=== PATIENT | male | born 1965 | race Caucasian/White ===

== ENCOUNTER → 2017-03-30 | Outpatient (CLI) | payer OTHER ==
[~2017-03-30] MED LIST: CARV12.52 PO; GLC500 PO; LISI-729 PO; MULTTAB58 PO; PRLSR20 PO; VITAMIN C PO
[2017-03-30 13:36] LABS: ESTIMATED AVERAGE GLUCOSE 131 mg/dl; HA1C FLAG Normal (Normal)
== END | disposition home or self-care (01) ==
LOC: C.LABPBG 08:56
PROVIDERS: ATTEND Family Medicine
DX: E11.9 Type 2 diabetes mellitus without complications (principal)

== ENCOUNTER → 2017-10-05 | Outpatient (CLI) | payer OTHER ==
[2017-10-05 12:41] LABS: ESTIMATED AVERAGE GLUCOSE 120 mg/dl; HA1C FLAG Normal (Normal)
[2017-10-05 12:49] LABS: BLOOD UREA NITROGEN 17 mg/dl (7-18); BUN/CREATININE RATIO 17.3 (10-20); CALCIUM 8.7 mg/dl (8.5-10.1); CARBON DIOXIDE 25 mmol/L (21-32); CHLORIDE 109 mmol/L (98-107); CREATININE 0.99 mg/dl (0.60-1.40); GLUCOSE 83 mg/dl (70-99); POTASSIUM 3.5 mmol/L (3.5-5.1); SODIUM 139 mmol/L (136-145); URIC ACID 3.9 mg/dl (2.6-7.2)
[2017-10-05 12:53] LABS: CHOLESTEROL 149 mg/dl (0-200); CHOLESTEROL/HDL RATIO 3.5; HDL CHOLESTEROL 43 mg/dl; LDL CHOLESTEROL CALCULATED 94 mg/dl; TRIGLYCERIDES 61 mg/dl (0-150); VERY LOW DENSITY LIPOPROT CALC 12 mg/dl
== END | disposition home or self-care (01) ==
LOC: C.LABPBG 09:35
PROVIDERS: ATTEND Family Medicine
DX: Z79.899 Other long term (current) drug therapy (principal); M1A.0790 Idiopathic chronic gout, unspecified ankle and foot, without tophus (tophi); E11.9 Type 2 diabetes mellitus without complications; E78.5 Hyperlipidemia, unspecified; I10 Essential (primary) hypertension

== ENCOUNTER 2021-04-21 20:06 | Observation (INO) ==
--- NOTE | 2021-04-21 20:49 | CT Scan Report ---
CT head/brain wo con CLINICAL HISTORY: 55 years-old Male with Stroke Like Symptoms. Acute strokelike symptoms TECHNIQUE: Multiple axial CT images of the head were obtained without contrast. A dose lowering tech nique was utilized adhering to the principles of ALARA. CT DOSE: 614.27 mGy.cm COMPARISON: None. FINDINGS: No acute intracranial hemorrhage, midline shift, intracranial mass, hydrocephalus, territorial ischem ia or abnormal extra-axial collection. The calvarium is intact. The paranasal sinuses, mastoid air cells, and middle ear cavities are clear . IMPRESSION: No acute intracranial abnormality. ACT 112: Negative or not required by law. The above report was generated using voice recognition software. It may contain grammatical, syntax o r spelling errors. Electronically signed by: Alfredo Thornton M.D. 04/21/2021 8:47 PM
[2021-04-21] MEDS ORDERED: OPTIRAY 320 125ml IV ONE (20:53)
--- NOTE | 2021-04-21 20:59 | CT Scan Report ---
CT angio neck with con, CT angio head w con CLINICAL HISTORY: 55 years-old Male with Stroke Like Symptoms. Acute strokelike symptoms COMPARISON STUDY: Head CT of same day TECHNIQUE: Following the IV administration of 120 mL of Optiray, CT angiogram of the head and neck wa s performed from the aortic arch to the skull apex. Images are reviewed in the axial, sagittal, and c oronal planes. 3-D MIPS images are created and assessed. IV contrast was administered without complic ation. All measurements were calculated based on NASCET criteria. A dose lowering technique was util ized adhering to the principles of ALARA. CT DOSE: 776.32 mGy.cm FINDINGS: Three-vessel morphology of the thoracic aortic arch. Patent innominate and imaged subclavian arteries . The common carotid arteries are widely patent. Internal carotid arteries are patent. The middle and anterior cerebral arteries are patent. Codominant and patent vertebral arteries. The basilar artery is patent. Mostly mild multifocal luminal narrowing of the posterior cerebral arteries. Cerebral veno us sinuses are patent. No aneurysm, dissection, high-grade stenosis or proximal branch occlusion. Nonspecific mild right hilar adenopathy with lymph nodes measuring up to 12 mm. No pneumothorax. Lung apices appear clear. Right paratracheal lymph nodes measure up to 10 mm. Unremarkable thyroid. No cazares praclavicular adenopathy identified. Prominent level 1 lymph nodes on the left measure up to 10 mm. IMPRESSION: 1. Unremarkable CTA of the head and neck. 2. Nonspecific mild mediastinal and right hilar adenopathy. ACT 112: Negative or not required by law. The above report was generated using voice recognition software. It may contain grammatical, syntax o r spelling errors. Electronically signed by: Alfredo Thornton M.D. 04/21/2021 8:58 PM
[2021-04-21 21:16] LABS: Hematocrit (blood only) 33.4 % (42-52); Hemoglobin 11.5 g/dL (14.0-18.0); Mean Corpuscular Hemoglobin 34.4 pg (25-34); Mean Corpuscular Hgb Conc 34.4 g/dL (32-36); Mean Platelet Volume 12.3 fL (7.4-10.4); Platelet Count 74 K/uL (130-400); RDW Coefficient of Variation 15.6 % (11.5-14.5); Red Blood Count 3.34 M/uL (4.7-6.1); White Blood Count 3.73 K/uL (4.8-10.8)
[2021-04-21 21:21] LABS: INR 1.4 (0.9-1.1); Partial Thromboplastin Ratio 1.1; Partial Thromboplastin Time 29.9 Seconds (21.0-31.0); Prothrombin Time 13.8 Seconds (9.0-12.0)
[2021-04-21 21:35] LABS: Alanine Aminotransferase 38 U/L (12-78); Albumin Level 2.5 gm/dl (3.4-5.0); Aspartate Aminotransferase 48 U/L (15-37); BUN Creatinine Ratio 17.8 (10-20); Blood Urea Nitrogen 17 mg/dl (7-18); Calcium 9.2 mg/dl (8.5-10.1); Carbon Dioxide 23 mmol/L (21-32); Chloride 114 mmol/L (98-107); Est GFR (African American) 100.7 ml/min; Est GFR (Non-African American) 86.9 ml/min; Glucose 74 mg/dl (70-99); Magnesium 1.8 mg/dl (1.8-2.4); Potassium 4.2 mmol/L (3.5-5.1); Sodium 142 mmol/L (136-145)
[2021-04-21 21:39] LABS: Albumin Globulin Ratio 0.5 (0.9-2); Alkaline Phosphatase 94 U/L (45-117); Bilirubin,Total 1.2 mg/dl (0.2-1); Globulin 4.8 gm/dl (2.5-4.0); Total Protein 7.3 gm/dl (6.4-8.2); Troponin I < 0.015 ng/ml (0-0.045)
--- NOTE | 2021-04-21 21:46 | Emergency Department Note ---
Impression & Plan Encephalopathy, Acute alteration in mental status, Pancytopenia ED Provider Note NAME: SATISH HUERTA AGE: 55 SEX: M : 1965 ARRIVES VIA: Walk-In INFORMANT: Patient, the patient's [id number] ED PROVIDER(S): Rehan Sanches DO CHIEF COMPLAINT: Altered mental status HPI: The patient is a 55-year-old male who presented to the emergency department for an evaluation of altered mental status. The patient was made a stroke alert as he came through triage. 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 He does ride with his [id number] to work. She did notice that over the course of the last week he has had episodes where he is not himself. He appears to be confused at times. The patient self offers no complaints. He states that he feels fine. He denies having any headache. He denies having any recent tr auma. He denies any alcohol use. The patient was noted to have sleepiness and was difficult to arouse. He was also noted by other workers in the hospital to be confused at one point a nurse observed him in the elevator and he did not know which button to press. The patient was made a stroke alert and placed directly in room B1. He was sent directly from triage to CT and then back to room B1 after CT was obtained. The patient denies having any fever. He denies having any cough. He has had no recent traveling. He denies having any headache or weakness in the arms or legs at this time. ROS: See above HPI for pertinent positives & negatives. A total of 10 systems reviewed and were otherwise negative. PAST MEDICAL HISTORY: See Below PAST SURGICAL HISTORY: See Below FAMILY HISTORY: See Below SOCIAL HISTORY: See Below HOME MEDICATIONS: See Below ALLERGIES: See Below VITALS: See Below PHYSICAL EXAMINATION: GENERAL: The patient is awake and alert. He is slow to answer questions but appears to answer appropriately. EYES: The conjunctivae are clear. The pupils are round and reactive. EARS, NOSE, MOUTH AND THROAT: The nose is without any evidence of any deformity. NECK: The neck is nontender and supple. RESPIRATORY: Normal respiratory effort is noted there is no evidence of wheezing rhonchi or rales CARDIOVASCULAR: Regular rate and rhythm noted there no murmurs rubs or gallops normal S1 normal S2. GASTROINTESTINAL: The abdomen is soft. Abdomen is nontender. MUSCULOSKELETAL/EXTREMITIES: There is no evidence of gross deformity full range of motion is noted in the hips and shoulders. SKIN: There is no obvious evidence of any rash. There are no petechiae, pallor or cyanosis noted. NEUROLOGIC: Patient is awake and oriented to person place and situation. Strength was symmetric. There is no facial droop. MEDICAL DECISION MAKING: The patient is a 55-year-old male who presented to the emergency department through triage. 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 The patient was made a stroke alert from triage. On my evaluation the patient does not have any focal neurologic deficit. He was evaluated by the [facility] neurologist. He was found to have pancytopenia. CT of the head and angiography of the head neck did not reveal any acute disease. I discussed the patient's laboratory and radiographic studies with him. He was reevaluated multiple times. Ultimately he was found to have pancytopenia. The patient may require further inpatient work-up and observation to ensure his mental status does come back to normal. I discussed this option with the patient and he was agreeable to inpatient management. I discussed his case with the on-call [facility] hospitalist. They have agreed to evaluate the patient in the emergency department for further management and disposition. Triage Nursing notes reviewed. Prior medical records reviewed Vital Signs: reviewed and remarkable for elevated blood pressure. Differential diagnosis: Infection, dehydration, metabolic abnormality, hypo/hyperglycemia, electrolyte disturbance, anemia, hypoxia, cardiac sources, intracerebral event, toxicologic, neurologic, as well as other pathologies. ER treatment provided: See below Diagnostics interpreted by me: ECG: EKG was obtained in the emergency department. My interpretation is normal sinus rhythm at 81 bpm. There is no ectopy. There is no acute ST segment abnormalities. This was compared to a tracing from March 232011. No s ignificant changes are noted Cardiac Monitoring: An order was placed for continuous cardiac monitoring. The monitor shows a rate of 80 bpm with sinus rhythm. Laboratory studies: As stated above and show below. Imaging studies: See below Consultation(s): 2100: I discussed this case with Dr. Moya who is on-call for the [facility] neurology group. They have agreed to evaluate the patient using the telestroke cart. 2240: I discussed this case with Dr. Hernandez who is on-call for the [facility] hospitalist group. Past Med/Surg History Medical History (Updated 04/21/21 @ 22:58 by Rehan Sanches DO) Cardiac murmur HX Diabetes mellitus, type 2 Gout Hyperlipidemia Hypertension Surgical History History of colonoscopy Family History Mother History of colonoscopy Brother Family history of diabetes mellitus Brother Family history of diabetes mellitus Grandmother (Paternal) Family history of diabetes mellitus Social History Smoking Status: Never smoker Second Hand Exposure: No; Hx Alcohol Use: No Hx Substance Use: No Preferred Language: Tamazight Communication Ability: Effective Automatic Beam Warper Tender Required: No Beliefs That Will Affect Care: None Current Living Situation: Family Feels Safe at Home: Yes Assistive Devices: Glasses Allergies Allergies Allergy/AdvReac Type Severity Reaction Status Date / Time aspirin Allergy NOSE BLEEDS Verified 04/21/21 20:38 Home Meds Home Medications Medication Instructions Recorded Confirmed allopurinol 300 mg PO QAM 06/03/19 04/21/21 ascorbic acid (vitamin C) [Vitamin 500 mg PO QAM 06/03/19 04/21/21 C] carvedilol 12.5 mg PO BID 06/03/19 04/21/21 glimepiride 4 mg PO QAM 06/03/19 04/21/21 lisinopril 5 mg PO QAM 06/03/19 04/21/21 metformin 500 mg PO AMPM 06/03/19 04/21/21 multivitamin 1 tab PO QAM 06/03/19 04/21/21 omeprazole 20 mg PO QAM 06/03/19 04/21/21 pioglitazone [Actos] 30 mg PO QAM 06/03/19 04/21/21 atorvastatin 20 mg PO DAILY 04/21/21 04/21/21 Results & Data (ED) Vital Signs Vital Signs - 24 hr 04/21/21 20:52 04/21/21 21:02 04/21/21 21:11 Pulse Rate 78 84 82 Pulse Rate [Right] Pulse Rate from SpO2 Sensor 84 83 Pulse Rhythm [Right] Pulse Strength [Right] Respiratory Rate 20 12 19 Respiratory Effort / Characteristics Respiratory Depth Blood Pressure 181/94 H 174/96 H Blood Pressure [Right Arm] Blood Pressure Mean 123 122 Blood Pressure Mean [Right Arm] Blood Pressure Position Sitting Blood Pressure Position [Right Arm] Pulse Oximetry 98 99 99 Oxygen Delivery Method Room Air Sepsis Recent Fever Within 48 Hours No Sepsis New/Unexplained Change in Mental Status Yes Sepsis Action Taken by Nursing No Action Required 04/21/21 21:16 04/21/21 21:31 04/21/21 22:12 Pulse Rate 83 82 Pulse Rate [Right] 79 Pulse Rate from SpO2 Sensor 84 82 Pulse Rhythm [Right] Regular Pulse Strength [Right] Normal Respiratory Rate 17 16 16 Respiratory Effort / Characteristics Non-Labored Spontaneous Respiratory Depth Normal Blood Pressure 173/94 H 168/96 H Blood Pressure [Right Arm] 155/67 H Blood Pressure Mean 120 120 Blood Pressure Mean [Right Arm] 96 Blood Pressure Position Blood Pressure Position [Right Arm] Sitting Pulse Oximetry 98 99 98 Oxygen Delivery Method Room Air Sepsis Recent Fever Within 48 Hours Sepsis New/Unexplained Change in Mental Status Sepsis Action Taken by [facility] Medications Current Medication List: was personally reviewed by me Laboratory Data Attestation: I reviewed the patient's lab results. Result diagrams: 04/21/21 21:01 04/21/21 21:01 Lab Results 04/21/21 04/21/21 04/21/21 Range/Units 20:57 21:01 21:01 WBC 3.73 L (4.8-10.8) K/uL RBC 3.34 L (4.7-6.1) M/uL Hgb 11.5 L (14.0-18.0) g/dL Hct 33.4 L (42-52) % MCV 100.0 (80-100) fL MCH 34.4 H (25-34) pg MCHC 34.4 (32-36) g/dL RDW Std Deviation 57.0 H (36.4-46.3) fL RDW Coeff of Polo 15.6 H (11.5-14.5) % Plt Count 74 L (130-400) K/uL MPV 12.3 H (7.4-10.4) fL Immature Gran % (Auto) 0.3 % Neut % (Auto) 59.9 % Lymph % (Auto) 17.2 % Clinch % (Auto) 16.9 % Eos % (Auto) 4.6 % Baso % (Auto) 1.1 % Neut # (Auto) 2.24 (1.4-6.5) K/uL Lymph # (Auto) 0.64 L (1.2-3.4) K/uL Clinch # (Auto) 0.63 H (0.11-0.59) K/uL Eos # (Auto) 0.17 (0-0.5) K/uL Baso # (Auto) 0.04 (0-0.2) K/uL Immature Gran # (Auto) 0.01 (0.00-0.02) K/uL Polychromasia 1+ Poikilocytosis Present Echinocytes 1+ PT 13.8 H (9.0-12.0) Seconds INR 1.4 H (0.9-1.1) APTT 29.9 (21.0-31.0) Seconds PTT Ratio 1.1 Sodium (136-145) mmol/L Potassium (3.5-5.1) mmol/L Chloride (98-107) mmol/L Carbon Dioxide (21-32) mmol/L Anion Gap (3-11) BUN (7-18) mg/dl Creatinine (0.6-1.4) mg/dl Est Cr Clr Drug Dosing ml/min Est GFR ( Amer) ml/min Est GFR (Non-Af Amer) ml/min BUN/Creatinine Ratio (10-20) Glucose (70-99) mg/dl POC Glucose 77 (70-99) mg/dl Calcium (8.5-10.1) mg/dl Magnesium (1.8-2.4) mg/dl Total Bilirubin (0.2-1) mg/dl AST (15-37) U/L ALT (12-78) U/L Alkaline Phosphatase (45-117) U/L Ammonia (11-32) umol/L Troponin I (0-0.045) ng/ml Total Protein (6.4-8.2) gm/dl Albumin (3.4-5.0) gm/dl Globulin (2.5-4.0) gm/dl Albumin/Globulin Ratio (0.9-2) Urine Opiates Screen (Neg) Ur Methadone, Qual (Neg) Urine Barbiturates (Neg) Ur Phencyclidine (PCP) (Neg) U Amphetamin/Meth Scrn (Neg) MDMA (Ecstasy) Screen (Neg) U Benzodiazepines Scrn (Neg) Ur Cocaine Metabolite (Neg) U Marijuana (THC) Screen (Neg) Ethyl Alcohol mg/dL (0-3) mg/dl Anaplasma Smear Lyme Disease IgG Ab (Negative) Lyme Disease IgM Ab (Negative) COVID-19 Eval Order SARS-CoV-2 (PCR) (Negative) 04/21/21 04/21/21 04/21/21 Range/Units 21:01 21:01 21:02 WBC (4.8-10.8) K/uL RBC (4.7-6.1) M/uL Hgb (14.0-18.0) g/dL Hct (42-52) % MCV (80-100) fL MCH (25-34) pg MCHC (32-36) g/dL RDW Std Deviation (36.4-46.3) fL RDW Coeff of Polo (11.5-14.5) % Plt Count (130-400) K/uL MPV (7.4-10.4) fL Immature Gran % (Auto) % Neut % (Auto) % Lymph % (Auto) % Clinch % (Auto) % Eos % (Auto) % Baso % (Auto) % Neut # (Auto) (1.4-6.5) K/uL Lymph # (Auto) (1.2-3.4) K/uL Clinch # (Auto) (0.11-0.59) K/uL Eos # (Auto) (0-0.5) K/uL Baso # (Auto) (0-0.2) K/uL Immature Gran # (Auto) (0.00-0.02) K/uL Polychromasia Poikilocytosis Echinocytes PT (9.0-12.0) Seconds INR (0.9-1.1) APTT (21.0-31.0) Seconds PTT Ratio Sodium 142 (136-145) mmol/L Potassium 4.2 (3.5-5.1) mmol/L Chloride 114 H (98-107) mmol/L Carbon Dioxide 23 (21-32) mmol/L Anion Gap 5.0 (3-11) BUN 17 (7-18) mg/dl Creatinine 0.97 (0.6-1.4) mg/dl Est Cr Clr Drug Dosing 12.0 ml/min Est GFR ( Amer) 100.7 ml/min Est GFR (Non-Af Amer) 86.9 ml/min BUN/Creatinine Ratio 17.8 (10-20) Glucose 74 (70-99) mg/dl POC Glucose (70-99) mg/dl Calcium 9.2 (8.5-10.1) mg/dl Magnesium 1.8 (1.8-2.4) mg/dl Total Bilirubin 1.2 H (0.2-1) mg/dl AST 48 H (15-37) U/L ALT 38 (12-78) U/L Alkaline Phosphatase 94 (45-117) U/L Ammonia (11-32) umol/L Troponin I < 0.015 (0-0.045) ng/ml Total Protein 7.3 (6.4-8.2) gm/dl Albumin 2.5 L (3.4-5.0) gm/dl Globulin 4.8 H (2.5-4.0) gm/dl Albumin/Globulin Ratio 0.5 L (0.9-2) Urine Opiates Screen (Neg) Ur Methadone, Qual (Neg) Urine Barbiturates (Neg) Ur Phencyclidine (PCP) (Neg) U Amphetamin/Meth Scrn (Neg) MDMA (Ecstasy) Screen (Neg) U Benzodiazepines Scrn (Neg) Ur Cocaine Metabolite (Neg) U Marijuana (THC) Screen (Neg) Ethyl Alcohol mg/dL (0-3) mg/dl Anaplasma Smear See Comment Lyme Disease IgG Ab Negative (Negative) Lyme Disease IgM Ab Negative (Negative) COVID-19 Eval Order SARS-CoV-2 (PCR) (Negative) 04/21/21 04/21/21 04/21/21 Range/Units 21:44 21:46 22:00 WBC (4.8-10.8) K/uL RBC (4.7-6.1) M/uL Hgb (14.0-18.0) g/dL Hct (42-52) % MCV (80-100) fL MCH (25-34) pg MCHC (32-36) g/dL RDW Std Deviation (36.4-46.3) fL RDW Coeff of Polo (11.5-14.5) % Plt Count (130-400) K/uL MPV (7.4-10.4) fL Immature Gran % (Auto) % Neut % (Auto) % Lymph % (Auto) % Clinch % (Auto) % Eos % (Auto) % Baso % (Auto) % Neut # (Auto) (1.4-6.5) K/uL Lymph # (Auto) (1.2-3.4) K/uL Clinch # (Auto) (0.11-0.59) K/uL Eos # (Auto) (0-0.5) K/uL Baso # (Auto) (0-0.2) K/uL Immature Gran # (Auto) (0.00-0.02) K/uL Polychromasia Poikilocytosis Echinocytes PT (9.0-12.0) Seconds INR (0.9-1.1) APTT (21.0-31.0) Seconds PTT Ratio Sodium (136-145) mmol/L Potassium (3.5-5.1) mmol/L Chloride (98-107) mmol/L Carbon Dioxide (21-32) mmol/L Anion Gap (3-11) BUN (7-18) mg/dl Creatinine (0.6-1.4) mg/dl Est Cr Clr Drug Dosing ml/min Est GFR ( Amer) ml/min Est GFR (Non-Af Amer) ml/min BUN/Creatinine Ratio (10-20) Glucose (70-99) mg/dl POC Glucose (70-99) mg/dl Calcium (8.5-10.1) mg/dl Magnesium (1.8-2.4) mg/dl Total Bilirubin (0.2-1) mg/dl AST (15-37) U/L ALT (12-78) U/L Alkaline Phosphatase (45-117) U/L Ammonia (11-32) umol/L Troponin I (0-0.045) ng/ml Total Protein (6.4-8.2) gm/dl Albumin (3.4-5.0) gm/dl Globulin (2.5-4.0) gm/dl Albumin/Globulin Ratio (0.9-2) Urine Opiates Screen (Neg) Ur Methadone, Qual (Neg) Urine Barbiturates (Neg) Ur Phencyclidine (PCP) (Neg) U Amphetamin/Meth Scrn (Neg) MDMA (Ecstasy) Screen (Neg) U Benzodiazepines Scrn (Neg) Ur Cocaine Metabolite (Neg) U Marijuana (THC) Screen (Neg) Ethyl Alcohol mg/dL < 3.0 (0-3) mg/dl Anaplasma Smear Lyme Disease IgG Ab (Negative) Lyme Disease IgM Ab (Negative) COVID-19 Eval Order Covid19 at [facility] SARS-CoV-2 (PCR) (Negative) 04/21/21 04/21/21 04/21/21 Range/Units 22:00 22:10 22:33 WBC (4.8-10.8) K/uL RBC (4.7-6.1) M/uL Hgb (14.0-18.0) g/dL Hct (42-52) % MCV (80-100) fL MCH (25-34) pg MCHC (32-36) g/dL RDW Std Deviation (36.4-46.3) fL RDW Coeff of Polo (11.5-14.5) % Plt Count (130-400) K/uL MPV (7.4-10.4) fL Immature Gran % (Auto) % Neut % (Auto) % Lymph % (Auto) % Clinch % (Auto) % Eos % (Auto) % Baso % (Auto) % Neut # (Auto) (1.4-6.5) K/uL Lymph # (Auto) (1.2-3.4) K/uL Clinch # (Auto) (0.11-0.59) K/uL Eos # (Auto) (0-0.5) K/uL Baso # (Auto) (0-0.2) K/uL Immature Gran # (Auto) (0.00-0.02) K/uL Polychromasia Poikilocytosis Echinocytes PT (9.0-12.0) Seconds INR (0.9-1.1) APTT (21.0-31.0) Seconds PTT Ratio Sodium (136-145) mmol/L Potassium (3.5-5.1) mmol/L Chloride (98-107) mmol/L Carbon Dioxide (21-32) mmol/L Anion Gap (3-11) BUN (7-18) mg/dl Creatinine (0.6-1.4) mg/dl Est Cr Clr Drug Dosing ml/min Est GFR ( Amer) ml/min Est GFR (Non-Af Amer) ml/min BUN/Creatinine Ratio (10-20) Glucose (70-99) mg/dl POC Glucose (70-99) mg/dl Calcium (8.5-10.1) mg/dl Magnesium (1.8-2.4) mg/dl Total Bilirubin (0.2-1) mg/dl AST (15-37) U/L ALT (12-78) U/L Alkaline Phosphatase (45-117) U/L Ammonia 144.2 H (11-32) umol/L Troponin I (0-0.045) ng/ml Total Protein (6.4-8.2) gm/dl Albumin (3.4-5.0) gm/dl Globulin (2.5-4.0) gm/dl Albumin/Globulin Ratio (0.9-2) Urine Opiates Screen Neg (Neg) Ur Methadone, Qual Neg (Neg) Urine Barbiturates Neg (Neg) Ur Phencyclidine (PCP) Neg (Neg) U Amphetamin/Meth Scrn Neg (Neg) MDMA (Ecstasy) Screen Neg (Neg) U Benzodiazepines Scrn Neg (Neg) Ur Cocaine Metabolite Neg (Neg) U Marijuana (THC) Screen Neg (Neg) Ethyl Alcohol mg/dL (0-3) mg/dl Anaplasma Smear Lyme Disease IgG Ab (Negative) Lyme Disease IgM Ab (Negative) COVID-19 Eval Order SARS-CoV-2 (PCR) NEGATIVE (Negative) Administered Medications Discontinued Medications Ioversol (Optiray 320 125ml) 120 ml IV ONCE ONE Stop: 04/21/21 20:54 Last Admin: 04/21/21 20:54 Dose: 120 ml Documented by: [id number] Imaging Data Attestation: I personally reviewed and interpreted this imaging study as follows: My Impression: 1 view chest x-ray was obtained in the emergency department. There was cardiomegaly noted. No definite filtrate was noted. No acute disease. Radiologist's Impression: Head CT 04/21/21 20:33 CT head/brain wo con CLINICAL HISTORY: 55 years-old Male with Stroke Like Symptoms. Acute strokelike symptoms TECHNIQUE: Multiple axial CT images of the head were obtained without contrast. A dose lowering technique was utilized adhering to the principles of ALARA. CT DOSE: 614.27 mGy.cm COMPARISON: None. FINDINGS: No acute intracranial hemorrhage, midline shift, intracranial mass, hydrocephalus, territorial ischemia or abnormal extra-axial collection. The calvarium is intact. The paranasal sinuses, mastoid air cells, and middle ear cavities are clear. IMPRESSION: No acute intracranial abnormality. ACT 112: Negative or not required by law. The above report was generated using voice recognition software. It may contain grammatical, syntax or spelling errors. Electronically signed by: Alfredo Thornton M.D. 04/21/2021 8:47 PM Head CTA 04/21/21 20:33 CT angio neck with con, CT angio head w con CLINICAL HISTORY: 55 years-old Male with Stroke Like Symptoms. Acute strokelike symptoms COMPARISON STUDY: Head CT of same day TECHNIQUE: Following the IV administration of 120 mL of Optiray, CT angiogram of the head and neck was performed from the aortic arch to the skull apex. Images are reviewed in the axial, sagittal, and coronal planes. 3-D MIPS images are created and assessed. IV contrast was administered without complication. All measurements were calculated based on NASCET criteria. A dose lowering technique was utilized adhering to the principles of ALARA. CT DOSE: 776.32 mGy.cm FINDINGS: Three-vessel morphology of the thoracic aortic arch. Patent innominate and imaged subclavian arteries. The common carotid arteries are widely patent. Internal carotid arteries are patent. The middle and anterior cerebral arteries are patent. Codominant and patent vertebral arteries. The basilar artery is patent. Mostly mild multifocal luminal narrowing of the posterior cerebral arteries. Cerebral venous sinuses are patent. No aneurysm, dissection, high- grade stenosis or proximal branch occlusion. Nonspecific mild right hilar adenopathy with lymph nodes measuring up to 12 mm. No pneumothorax. Lung apices appear clear. Right paratracheal lymph nodes measure up to 10 mm. Unremarkable thyroid. No supraclavicular adenopathy identified. Prominent level 1 lymph nodes on the left measure up to 10 mm. IMPRESSION: 1. Unremarkable CTA of the head and neck. 2. Nonspecific mild mediastinal and right hilar adenopathy. ACT 112: Negative or not required by law. The above report was generated using voice recognition software. It may contain grammatical, syntax or spelling errors. Electronically signed by: Alfredo Thornton M.D. 04/21/2021 8:58 PM Neck CTA 04/21/21 20:33 CT angio neck with con, CT angio head w con CLINICAL HISTORY: 55 years-old Male with Stroke Like Symptoms. Acute strokelike symptoms COMPARISON STUDY: Head CT of same day TECHNIQUE: Following the IV administration of 120 mL of Optiray, CT angiogram of the head and neck was performed from the aortic arch to the skull apex. Images are reviewed in the axial, sagittal, and coronal planes. 3-D MIPS images are created and assessed. IV contrast was administered without complication. All measurements were calculated based on NASCET criteria. A dose lowering technique was utilized adhering to the principles of ALARA. CT DOSE: 776.32 mGy.cm FINDINGS: Three-vessel morphology of the thoracic aortic arch. Patent innominate and imaged subclavian arteries. The common carotid arteries are widely patent. Internal carotid arteries are patent. The middle and anterior cerebral arteries are patent. Codominant and patent vertebral arteries. The basilar artery is patent. Mostly mild multifocal luminal narrowing of the posterior cerebral arteries. Cerebral venous sinuses are patent. No aneurysm, dissection, high-g rade stenosis or proximal branch occlusion. Nonspecific mild right hilar adenopathy with lymph nodes measuring up to 12 mm. No pneumothorax. Lung apices appear clear. Right paratracheal lymph nodes measure up to 10 mm. Unremarkable thyroid. No supraclavicular adenopathy ignacia ntified. Prominent level 1 lymph nodes on the left measure up to 10 mm. IMPRESSION: 1. Unremarkable CTA of the head and neck. 2. Nonspecific mild mediastinal and right hilar adenopathy. ACT 112: Negative or not required by law. The above report was generated using voice recognition software. It may contain grammatical, syntax or spelling errors. Electronically signed by: Alfredo Thornton M.D. 04/21/2021 8:58 PM Discharge Plan Visit Data Chief Complaint: Confusion Stated Complaint: DIZZY, CONFUSION ED Provider: Rehan Sanches Discharge Problem: Encephalopathy, Acute alteration in mental status, Pancytopenia Patient Disposition: Being Evaluated by Hospitalist Condition: Good Forms Stand Alone Forms: My [facility] Prescriptions Prescriptions: No Action metformin 500 mg Tablet 500 mg PO AMPM RF: 0 carvedilol 12.5 mg Tablet 12.5 mg PO BID RF: 0 glimepiride 4 mg Tablet 4 mg PO QAM RF: 0 omeprazole 20 mg Capsule,Delayed Release(Dr/Ec) 20 mg PO QAM RF: 0 allopurinol 300 mg Tablet 300 mg PO QAM RF: 0 lisinopril 5 mg Tablet 5 mg PO QAM RF: 0 pioglitazone [Actos] 30 mg Tablet 30 mg PO QAM RF: 0 multivitamin Tablet 1 tab PO QAM RF: 0 ascorbic acid (vitamin C) [Vitamin C] 500 mg Tablet 500 mg PO QAM RF: 0 atorvastatin 20 mg tablet 20 mg PO DAILY RF: 0 Referrals Referrals: Stanford Mays MD [Primary Care Provider] -
[2021-04-21 22:02] LABS: Basophils # (auto) 0.04 K/uL (0-0.2); Basophils % (auto) 1.1 %; Echinocytes 1+; Eosinophils # (auto) 0.17 K/uL (0-0.5); Eosinophils % (auto) 4.6 %; Immature Granulocytes # (auto) 0.01 K/uL (0.00-0.02); Immature Granulocytes % (auto) 0.3 %; Lymphocytes # (auto) 0.64 K/uL (1.2-3.4); Lymphocytes % (auto) 17.2 %; Monocytes # (auto) 0.63 K/uL (0.11-0.59); Monocytes % (auto) 16.9 %; Neutrophils # (auto) 2.24 K/uL (1.4-6.5); Neutrophils % (auto) 59.9 %; Poikilocytosis Present; Polychromasia 1+
[2021-04-21 22:18] LABS: Lyme Ab IgG w/WB Rflx Negative (Negative); Lyme Ab IgM w/WB Rflx Negative (Negative)
[2021-04-21 22:47] LABS: Amphetamines+Metham, Urine Neg (Neg); Barbiturates, Urine Neg (Neg); Benzodiazepine, Urine Neg (Neg); Cocaine, Urine Neg (Neg); MDMA (Ecstacy), Urine Neg (Neg); Methadone, Urine Neg (Neg); Opiate, Urine Neg (Neg); Phencyclidine, Urine Neg (Neg)
[2021-04-22] MEDS ORDERED: BACITRACIN OINT 15 GM TUBE ONE (00:44)
--- NOTE | 2021-04-22 00:53 | History and Physical Report ---
DATE OF ADMISSION: 04/21/2021. CHIEF COMPLAINT: Confusion. HISTORY OF PRESENT ILLNESS: This is a 55-year-old male with past medical history significant for type 2 diabetes, hyperlipidemia, chronic idiopathic gout, primary hypertension, obesity, diverticulosis of colon, family history of colon cancer, presents with confusion. The patient works in the [employer]. His [id number] also works here with whom he shares the ride; and as per the ER, [id number] noticed that since one week he had episodes where he was not himself, he was confused at times, and at work also it was noticed that he was confused at one point of time. When he came in, he was a stroke alert. He had a CT of the head and CTA of the head and neck and were okay and Светлана neurologist also examined the patient and thought it could be some ongoing encephalopathy. The patient seems to be okay currently, alert and oriented, somewhat a little shaky. But his labs showed him to have pancytopenia, WBC of 3.7, hemoglobin 11.5, and platelets of 74. Lyme screen was negative. The patient denies any alcohol use. He takes Aleve once in a while, but does not take any Tylenol. His labs on 05/10/2020 also showed white count of 4.1, hemoglobin 12.2 at that time, and platelets 91. His ammonia level came back as 144, total bilirubin 1.2, AST 48, ALT 38, alkaline phosphatase 94. INR 1.4. PT 13.8. Currently resting comfortably and hemodynamically stable. Denies any chest pain, no shortness of breath, no cough, no fever, no chills, no headache, no blurred visions, no earache, no runny nose, no sore throat. Appetite okay, no dysphagia. He had an episode of blood in the stools about a week ago, just one episode. He took one dose of water pill for lower extremity swelling last 1 month ago. Ambulates okay. He says he had belly pain several years ago. Currently denies any abdominal pain. ALLERGIES: SALICYLATES. PAST MEDICAL HISTORY: As mentioned above. PAST SURGICAL HISTORY: Colonoscopy. MEDICATIONS: The patient is on allopurinol 300 mg p.o. a.m., vitamin C 500 mg p.o. a.m., atorvastatin 20 mg p.o. daily, Coreg 12.5 mg p.o. b.i.d., glimepiride 4 mg p.o. a.m., lisinopril 5 mg p.o. a.m., metformin 500 mg p.o. b.i.d., multivitamin 1 tablet p.o. a.m., omeprazole 20 mg p.o. a.m., Actos 30 mg p.o. a.m. FAMILY HISTORY: Significant for mother had colon cancer; brother has diabetes, hypertension and sleep apnea; mother has hypertension. SOCIAL HISTORY: Single. Chews tobacco. No alcohol, no drug use. REVIEW OF SYSTEMS: As per HPI. Rest of the review of systems negative. PHYSICAL EXAMINATION: GENERAL: The patient is obese, not in acute distress. VITAL SIGNS: Temperature afebrile, pulse 74, respiratory rate 16, blood pressure 152/88, oxygen 97% on room air. HEENT: Pupils equal, round, and reactive to light. No pallor, no icterus. Oral mucosa moist. NECK: No JVD, no neck masses. CARDIOVASCULAR: S1 and S2 heard. Regular rate and rhythm. No murmur, no gallop. RESPIRATORY SYSTEM: Normal AP diameter. No accessory muscle use. No wheezing, no crackles. ABDOMEN: Soft, bowel sounds present, nontender, no distention. CENTRAL NERVOUS SYSTEM: Alert and oriented to name, place, could tell month and year, could not tell exact date, could tell his date of . Speech is clear. No facial droop. Power is 5/5 in all extremities. Coordination of movements normal. No pronator drift. EXTREMITIES: Mild pedal edema present, no erythema seen. LABORATORY DATA: WBC 3.7, hemoglobin 11.5, hematocrit 33.4, platelets 74. PT 13.8, INR 1.4, APTT 29.9. Sodium 142, potassium 4.2, chloride 114, bicarbonate 23, BUN 17, creatinine 0.9, serum glucose 74, calcium 9.2, magnesium 1.8, total bilirubin 1.2, AST 48, ALT 38, alkaline phosphatase 94. Ammonia 144, troponin less than 0.015. Urine drug screen negative. Ethyl alcohol less than 3. Anaplasmosis smear negative. Lyme screen A and B negative. COVID-19 PCR negative. IMAGING DATA: CT of the head, no acute intracranial abnormality. CTA of the head unremarkable. CTA of the head and neck, nonspecific mild mediastinal and right hilar adenopathy. Chest x-ray, no acute findings. EKG: Normal sinus rhythm at a rate of 81, QTc at 487. ASSESSMENT AND PLAN: This 55-year-old male presents with confusion. 1. Confusion: Possibly hepatic encephalopathy with elevated ammonia level. The patient also has pancytopenia. CT of the head and CTA of the head and neck are unremarkable. . Has some tremors in the hands.Will admit to tele floor, will place on lactulose 30 g q.i.d. Recheck ammonia level in the a.m. We will also get a CT of the abdomen and pelvis. Hepatic panel. Consult GI in the a.m. for further recommendations. 2. History of diabetes: Hold his home Actos, glimepiride, and metformin. Placed on insulin sliding scale and Lantus. Follow his blood sugars and HbA1c levels. 3. Hyperlipidemia: Continue statin. 4. Hypertension: Continue his Coreg and lisinopril. Monitor blood pressure. 5. History of gout: Continue allopurinol. 6. Gastroesophageal reflux disease: Continue omeprazole. 7. Pancytopenia: Etiology unclear. Will follow the CT of abdomen and pelvis for any liver disease. 8. Deep venous thrombosis prophylaxis: Sequential compression devices. DISPOSITION: Admit to tele floor. PT/OT prior to discharge. Social service to help with discharge planning. Level 1 full code. Job ID: [id number] [facility]
[2021-04-22] MEDS ORDERED: OPTIRAY 320 100ml IV ONE (00:58)
[2021-04-22] MEDS ORDERED: SODIUM CHLORIDE 0.9% 1000ML 1,000 ML IV SCH (00:59)
[2021-04-22] MEDS ORDERED: NITROGLYCERIN SL 0.4 MG/TAB TAB SL PRN (00:59)
[2021-04-22] MEDS: LACTULOSE SYRUP 30 GM/45 ML UDP PO SCH ×5 (01:05→20:45)
[2021-04-22 06:08] LABS: Potassium 3.8 mmol/L (3.5-5.1)
[2021-04-22 06:13] LABS: Albumin Level 2.5 gm/dl (3.4-5.0); BUN Creatinine Ratio 17.8 (10-20); Bilirubin Direct 0.4 mg/dl (0-0.2); Calcium 8.6 mg/dl (8.5-10.1); Creatinine Clr Calc Pharmacy 132.7 ml/min; Est GFR (African American) 111.3 ml/min; Magnesium 1.8 mg/dl (1.8-2.4)
[2021-04-22 06:16] LABS: Bilirubin,Total 1.4 mg/dl (0.2-1); Total Protein 6.7 gm/dl (6.4-8.2)
[2021-04-22 06:30] LABS: Estimated Average Glucose 131 mg/dl; Hemoglobin A1C 6.2 % (4.5-5.6)
[2021-04-22 06:33] LABS: Hematocrit (blood only) 32.7 % (42-52); Hemoglobin 11.1 g/dL (14.0-18.0); Mean Corpuscular Hemoglobin 33.8 pg (25-34); Mean Corpuscular Hgb Conc 33.9 g/dL (32-36); Mean Corpuscular Volume 99.7 fL (80-100); Mean Platelet Volume 12.3 fL (7.4-10.4); Platelet Count 71 K/uL (130-400); RDW Coefficient of Variation 15.7 % (11.5-14.5); RDW Standard Deviation 57.5 fL (36.4-46.3); Red Blood Count 3.28 M/uL (4.7-6.1)
[2021-04-22 06:51] LABS: Basophils # (auto) 0.05 K/uL (0-0.2); Basophils % (auto) 1.3 %; Eosinophils # (auto) 0.18 K/uL (0-0.5); Eosinophils % (auto) 4.6 %; Lymphocytes # (auto) 0.72 K/uL (1.2-3.4); Lymphocytes % (auto) 18.5 %; Monocytes % (auto) 17.9 %; Neutrophils # (auto) 2.25 K/uL (1.4-6.5); Neutrophils % (auto) 57.7 %
--- NOTE | 2021-04-22 07:06 | XRay Report ---
SINGLE VIEW CHEST CLINICAL HISTORY: Strokelike symptoms. FINDINGS: An AP, portable, upright chest radiograph is compared to study dated 12/21/2013. The examina tion is degraded by portable technique and apical lordotic positioning. The heart is top normal for p rojection. There is mild bibasilar atelectasis. No airspace consolidation or large pleural effusion i s identified. No pneumothorax is seen. The bony thorax is grossly intact. IMPRESSION: No active disease in the chest. ACT 112: Negative or not required by law. Electronically signed by: Ruy Ribeiro M.D. 04/22/2021 7:04 AM
[2021-04-22] MEDS ORDERED: CARBOHYDRATES FOR HYPOGLYCEMIA PO ONE (07:08)
[2021-04-22] MEDS ORDERED: GLUCAGON FOR INJ 1 MG VIAL IM PRN (07:15)
[2021-04-22] MEDS ORDERED: CARBOHYDRATES FOR HYPOGLYCEMIA PO PRN (07:15)
[2021-04-22] MEDS ORDERED: DEXTROSE 50% 50 ML SYRINGE IV PRN (07:15)
[2021-04-22] MEDS ORDERED: GLUCOSE 10 TABS/TUBE PO PRN (07:15)
[2021-04-22] MEDS ORDERED: GLUCOSE 40% GEL 15 GM TUBE PO PRN (07:15)
--- NOTE | 2021-04-22 08:10 | CT Scan Report ---
CT SCAN OF THE ABDOMEN AND PELVIS WITH IV CONTRAST CLINICAL HISTORY: Hepatic encephalopathy. COMPARISON STUDY: Abdominal CT dated 05/10/2020. TECHNIQUE: Following the IV administration of 93 cc of Optiray 320, CT scan of the abdomen and pelvi s is performed from the lung bases to the proximal femora. Images are reviewed in the axial, sagittal , and coronal planes. IV contrast was administered without complication. A dose lowering technique wa s utilized adhering to the principles of ALARA. CT DOSE: 2122.95 mGy.cm FINDINGS: Lung bases: The heart is top normal in size and without pericardial effusion. The lung bases are abdoulaye r noting bibasilar scarring/atelectasis. Liver: The contrast-enhanced liver is cirrhotic in morphology and heterogeneous in attenuation. There is nodularity of the hepatic surface contour as well as hypertrophy of the left lobe. There is no in trahepatic biliary ductal dilatation. The hepatic veins and portal veins are patent. Gallbladder: The gallbladder is moderately distended. The gallbladder wall is thickened and edematous with mild pericholecystic stranding. Spleen: The spleen is enlarged measuring 17.4 cm in length. There are large perisplenic varices with retroperitoneal collateral vessels. Pancreas: The pancreas is moderately atrophic. The gland enhances homogeneously. Nonspecific peripanc reatic stranding is identified, with trace peripancreatic fluid. Adrenal glands: Unremarkable. Kidneys: The contrast enhanced kidneys demonstrate cortical atrophy and are without hydronephrosis. T he kidneys enhance symmetrically. Excreted contrast fills the renal collecting systems and ureters wi th no evidence of urothelial lesion. Abdominal vasculature: The abdominal aorta is normal in course and caliber noting [id number] at herosclerotic calcification. Bowel: Mild fecal retention is seen throughout the colon. No bowel obstruction is identified. The neymar endix is well-visualized and normal. Peritoneum: There is trace perihepatic and perisplenic ascites, as well as trace ascites in the lower abdomen/pelvis. No intraperitoneal free air is identified. There is no ascitic fluid containing umbi lical hernia. Lymphadenopathy: Prominent upper abdominal lymph nodes are likely related to chronic liver disease. Pelvic viscera: The bladder is filled with excreted IV contrast and normal as visualized. The prostat e gland is diminutive. The seminal vesicles are normal as imaged. Skeletal structures: The skeletal structures are osteopenic. Mild spondylotic change is noted in the spine. There is a right-sided pars defect at L5. No lytic or blastic lesions are seen. There are heal ed left-sided rib fractures. IMPRESSION: 1. There is mild nonspecific peripancreatic stranding and trace fluid. Correlate clinically and with serum amylase/lipase levels for evidence of acute pancreatitis. 2. The liver is cirrhotic in morphology and heterogeneous in attenuation. 3. Splenomegaly, splenic varices, retroperitoneal collaterals, and trace abdominopelvic ascites indic ate portal hypertension. 4. The gallbladder wall is thickened and edematous with mild pericholecystic stranding. This is nonsp ecific and may be related to chronic liver disease. If there is clinical concern for acute cholecysti tis a right upper quadrant ultrasound should be obtained. 5. Additional findings as above. ACT 112: Negative or not required by law. Electronically signed by: Ruy Ribeiro M.D. 04/22/2021 8:09 AM
[2021-04-22] MEDS: allopurinoL 300 MG TAB PO SCH (08:20)
[2021-04-22] MEDS: PANTOprazole 40 MG TAB PO SCH (08:20)
[2021-04-22] MEDS: lisinopril 5 MG TAB PO SCH (08:21)
[2021-04-22] MEDS: carvediloL 12.5 MG TAB PO SCH ×2 (08:21→20:44)
[2021-04-22] MEDS: ASCORBIC ACID 500 MG TAB PO SCH (08:21)
[2021-04-22] MEDS: ATORVASTATIN 20 MG TAB PO SCH (08:21)
[2021-04-22] MEDS: MULTIVITAMIN TAB PO SCH (08:22)
[2021-04-22] MEDS: INSULIN GLARGINE SOLOSTAR 100 UNITS/ML 3 ML PEN SC SCH (08:22)
[2021-04-22] MEDS: INSULIN ASPART 100 UNITS/ML 3 ML PEN SC SCH ×4 (08:23→20:45)
--- NOTE | 2021-04-22 08:51 | Hospitalist Progress Note ---
Date of Service April 22, 2021 Assessment & Plan (1) Encephalopathy: (2) Acute alteration in mental status: (3) Pancytopenia: ASSESSMENT AND PLAN: This 55-year-old male presents with confusion. 1. Confusion: Hepatic encephalopathy with elevated ammonia level. The patient also has pancytopenia. CT of the head and CTA of the head and neck are unremarkable. Has some tremors in the hands. Lactulose 30 g q.i.d. Follow NH3 levels, GI to see 2. History of diabetes:Placed on insulin sliding scale and Lantus. 3. Hyperlipidemia: Continue statin. 4. Hypertension: Continue his Coreg and lisinopril. Monitor blood pressure. 5. History of gout: Continue allopurinol. 6. Gastroesophageal reflux disease: Continue omeprazole. 7. Pancytopenia: Cirrhosis 8. Deep venous thrombosis prophylaxis: Sequential compression devices. Labs Checked ROS-No Headache, No Visual Changes, No Nausea, No Vomiting, No Fever, No Chills, No Neck Pain or Stiffness, No Chest Pain, No Palpitations, No SOB, No BINGHAM, No Cough, No Sputum, No Wheezing, No Abdominal Pain, No Diarrhea, No Hematemesis, No Hemoptysis, No Unexpected Weight Loss, No Flank pain, No Melena, No Hematochezia, No Frequency, No Urgency, No Burning, No Hematuria, No Rashes, No Diaphoresis. Appetite is Normal, Feeling Better Physical Exam Gen-AAO x 3, NAD, Afebrile, Obese Head-NCAT, EOMI, PERRLA, Anicteric Sclera, No Posterior Pharyngeal Erythema Neck-Supple, No JVD, No Thyromegaly, No Masses, No LAD, No Bruits Lungs-Clear to Auscultation Bilaterally, No Rales, No Rhonchi, No Wheezing, No Crepitus Chest-No S4, +S1, +S2, No S3, No Murmurs, No Rubs, No Gallops, No Ectopy Abdomen-Soft, Bowel Sounds Present, Non Tender, Non Distended, No Hepatomegaly, No Splenomegaly, No Palpable Masses, No Rebound, No Rigidity, No Guarding Musculoskeletal-Full Range of Motion Bilaterally, No CVAT Extremities-No Cyanosis, No Clubbing, No Edema Nuero-Cranial Nerves II-XII grossly intact, Motor WNL, DTRs WNL, Strength WNL, Non Focal Psych-Normal Mood Admission and Anticipated Discharge Date Admission Date: April 21, 2021 Results & Data Results & Data ([facility]) Vital Signs (Past 12 Hours) Vital Signs Temp Pulse Pulse Resp BP BP Pulse Ox 04/22/21 07:36 36.5 C 72 20 114/73 98 04/22/21 03:31 37.0 C 78 24 134/70 97 04/22/21 00:20 36.8 C 78 20 153/95 H 98 04/22/21 00:05 76 16 152/88 H 98 04/21/21 23:20 74 16 152/88 H 97 04/21/21 22:12 79 16 155/67 H 98 04/21/21 21:31 82 16 168/96 H 99 04/21/21 21:16 83 17 173/94 H 98 04/21/21 21:11 82 19 99 04/21/21 21:02 84 12 174/96 H 99 04/21/21 20:52 78 20 181/94 H 98
[2021-04-22 10:07] LABS: Hepatitis B Surf Ag Rflx Conf Neg (Neg)
--- NOTE | 2021-04-22 10:09 | Gastrointestinal Consultation ---
Date of Consultation April 22, 2021 Assessment & Plan (1) Encephalopathy: 55 year old male admitted w/ confusion, labs and imaging concerning for underlying liver cirrhosis Suspected hepatic encephalopathy * Continue Lactulose 20 g three times a day titrated to BMs 2-5 times daily * Please discharge home on lactulose * rule out any infectious process, Chest XR, urine culture, blood culture, traces ascites likely not amendable to paracentesis Cirrhosis on imaging * OP GI evaluation with OP serology, clinical concern for GONZALES * MELD 11, APRI 1.75 * OP EGD/Colonoscopy * HCC screening with ABD US and AFP every 6 months * Remain drug and ETOH free as doing * Less than 2g of tylenol if using * Low NA diet, less than 2 grams * OP EGD for variceal screening, OP serologic w/u cirrhosis History of intermittent BRBPR x years * OP colonoscopy at time of EGD Abnormal CTAP w/ mild nonspecific peripancreatic stranding and trace fluid * Asymptomatic * Lipase WNL * OP EUS in 4-6 weeks Recall GI as needed. Thank you for allowing us to participate in the care of this patient. Please call with any acute changes, questions or concerns. Please see addendum below with additional recommendation from my supervising physician. Attg add: I interviewed and examined pt, reviewed chart and labs. Pt admit with confusion, CT found to have cirrhosis/portal HTN. Agree with lactulose, although precipitant for HE unclear. Serologic w/u cirrhosis, EGD as outpt. History of Present Illness Reason for Consultation: confusion Requesting Physician: Armando Attending Physician: Juan Francisco Roberts, History of Present Illness 55 year old male with history of type 2 diabetes, hyperlipidemia, chronic idiopathic gout, primary hypertension, obesity, diverticulosis of colon, family history of colon cancer, presents with confusion. Pt was seen and evaluated, chart reviewed. Notes that he has had confusion, altered mental status x 2 in the past week. The first episodes resolved with time and with PO intake, however this episodes persisted and he was brought to the ED. In the ED, stroke alert was called, CT of the head and CTA of the head and neck were unremarkable. He was evaluated by neurologist and was concerned for encephalopathy. Labs notable for pancytopenia w/ platelets of 74. Elevated ammonia level at 144. He is feeling well at present. Awake, alert. Answering questions appropriately. Denies abd pain, nausea, vomiting. Denies diarrhea/constipation. Has had history of rectal bleeding in the past for which he underwent colonoscopy before. He does not persistent intermittent trace BRB, last occured week ago. Does suggest about 30 lb weight gain. No fever, chills, CP, SOB Denies ETOH or IV/IN drug use CTAP: there is mild nonspecific peripancreatic stranding and trace fluid. Correlate clinically and with serum amylase/lipase levels for evidence of acute pancreatitis. The liver is cirrhotic in morphology and heterogeneous in attenuation. Splenomegaly, splenic varices, retroperitoneal collaterals, and trace abdominopelvic ascites indicate portal hypertension. The gallbladder wall is thickened and edematous with mild pericholecystic stranding. This is nonspecific and may be related to chronic liver disease. If there is clinical concern for acute cholecystitis a right upper quadrant ultrasound should be obtained. Allergies Allergy/AdvReac Type Severity Reaction Status Date / Time aspirin Allergy NOSE BLEEDS Verified 04/21/21 20:38 Home Medications Medication Instructions Recorded Confirmed Type allopurinol 300 mg PO QAM 06/03/19 04/21/21 History ascorbic acid (vitamin C) [Vitamin 500 mg PO QAM 06/03/19 04/21/21 History C] carvedilol 12.5 mg PO BID 06/03/19 04/21/21 History glimepiride 4 mg PO QAM 06/03/19 04/21/21 History lisinopril 5 mg PO QAM 06/03/19 04/21/21 History metformin 500 mg PO AMPM 06/03/19 04/21/21 History multivitamin 1 tab PO QAM 06/03/19 04/21/21 History omeprazole 20 mg PO QAM 06/03/19 04/21/21 History pioglitazone [Actos] 30 mg PO QAM 06/03/19 04/21/21 History atorvastatin 20 mg PO DAILY 04/21/21 04/21/21 History Patient History Medical History (Updated 04/21/21 @ 22:58 by Rehan Sanches DO) Cardiac murmur HX Diabetes mellitus, type 2 Gout Hyperlipidemia Hypertension Surgical History History of colonoscopy Family History Mother History of colonoscopy Brother Family history of diabetes mellitus Brother Family history of diabetes mellitus Grandmother (Paternal) Family history of diabetes mellitus Social History Smoking Status: Former smoker Second Hand Exposure: No; Do You Dip or Chew Tobacco: No; Hx Alcohol Use: No Hx Substance Use: No Preferred Language: Chinese Communication Ability: Effective Topstitcher Zigzag Required: No Beliefs That Will Affect Care: None marital status: Single Current Living Situation: Family Current Living Situation Comment: Mother, brother Other Information That Helps Us Care for You: No Feels Safe at Home: Yes Safety Concerns: Feels Safe At This Time Assistive Devices: None Review of Systems Review of Systems: All systems reviewed & are unremarkable except as noted in HPI & below Physical Exam Constitutional: WD/WN, vitals as above well nourished and + obese; no acute distress and not ill appearing Neck: trachea midline, no thyromegaly Respiratory: normal respiratory effort, lungs clear to auscultation Cardiovascular: RRR, no murmur, no edema Gastrointestinal (Abdomen): normal bowel sounds, soft, nontender, no hepatosplenomegaly Skin: no rashes, warm and dry Results & Data ([facility]) Vital Signs (Past 12 Hours) Vital Signs Temp Pulse Pulse Resp BP BP Pulse Ox 04/22/21 08:00 69 04/22/21 07:36 36.5 C 72 20 114/73 98 04/22/21 03:31 37.0 C 78 24 134/70 97 04/22/21 00:20 36.8 C 78 20 153/95 H 98 04/22/21 00:05 76 16 152/88 H 98 04/21/21 23:20 74 16 152/88 H 97 04/21/21 22:12 79 16 155/67 H 98 Laboratory Results 04/22/21 04/22/21 04/22/21 Range/Units 07:22 07:04 05:28 WBC (4.8-10.8) K/uL RBC (4.7-6.1) M/uL Hgb (14.0-18.0) g/dL Hct (42-52) % MCV (80-100) fL MCH (25-34) pg MCHC (32-36) g/dL RDW Std Deviation (36.4-46.3) fL RDW Coeff of Polo (11.5-14.5) % Plt Count (130-400) K/uL MPV (7.4-10.4) fL Immature Gran % (Auto) % Neut % (Auto) % Lymph % (Auto) % [place] % (Auto) % Eos % (Auto) % Baso % (Auto) % Neut # (Auto) (1.4-6.5) K/uL Lymph # (Auto) (1.2-3.4) K/uL [place] # (Auto) (0.11-0.59) K/uL Eos # (Auto) (0-0.5) K/uL Baso # (Auto) (0-0.2) K/uL Immature Gran # (Auto) (0.00-0.02) K/uL Polychromasia Poikilocytosis Echinocytes PT (9.0-12.0) Seconds INR (0.9-1.1) APTT (21.0-31.0) Seconds PTT Ratio Sodium (136-145) mmol/L Potassium (3.5-5.1) mmol/L Chloride (98-107) mmol/L Carbon Dioxide (21-32) mmol/L Anion Gap (3-11) BUN (7-18) mg/dl Creatinine (0.6-1.4) mg/dl Est Cr Clr Drug Dosing ml/min Est GFR ( Amer) ml/min Est GFR (Non-Af Amer) ml/min BUN/Creatinine Ratio (10-20) Glucose (70-99) mg/dl POC Glucose 79 68 L* (70-99) mg/dl Estimat Average Glucose mg/dl Hemoglobin A1c (4.5-5.6) % Calcium (8.5-10.1) mg/dl Magnesium (1.8-2.4) mg/dl Total Bilirubin (0.2-1) mg/dl Direct Bilirubin (0-0.2) mg/dl AST (15-37) U/L ALT (12-78) U/L Alkaline Phosphatase (45-117) U/L Ammonia (11-32) umol/L Troponin I (0-0.045) ng/ml Total Protein (6.4-8.2) gm/dl Albumin (3.4-5.0) gm/dl Globulin (2.5-4.0) gm/dl Albumin/Globulin Ratio (0.9-2) Lipase (73-393) U/L Urine Opiates Screen (Neg) Ur Methadone, Qual (Neg) Urine Barbiturates (Neg) Ur Phencyclidine (PCP) (Neg) U Amphetamin/Meth Scrn (Neg) MDMA (Ecstasy) Screen (Neg) U Benzodiazepines Scrn (Neg) Ur Cocaine Metabolite (Neg) U Marijuana (THC) Screen (Neg) Ethyl Alcohol mg/dL (0-3) mg/dl Anaplasma Smear A. phagocytophilum DNA Lyme Disease IgG Ab (Negative) Lyme Disease IgM Ab (Negative) COVID-19 Eval Order SARS-CoV-2 (PCR) (Negative) Hepatitis A IgM Ab Pending Hep Bs Antigen (Neg) Hep B Core IgM Ab Pending Hepatitis C Antibody 04/22/21 04/22/21 04/22/21 Range/Units 05:28 05:28 05:28 WBC (4.8-10.8) K/uL RBC (4.7-6.1) M/uL Hgb (14.0-18.0) g/dL Hct (42-52) % MCV (80-100) fL MCH (25-34) pg MCHC (32-36) g/dL RDW Std Deviation (36.4-46.3) fL RDW Coeff of Polo (11.5-14.5) % Plt Count (130-400) K/uL MPV (7.4-10.4) fL Immature Gran % (Auto) % Neut % (Auto) % Lymph % (Auto) % [place] % (Auto) % Eos % (Auto) % Baso % (Auto) % Neut # (Auto) (1.4-6.5) K/uL Lymph # (Auto) (1.2-3.4) K/uL [place] # (Auto) (0.11-0.59) K/uL Eos # (Auto) (0-0.5) K/uL Baso # (Auto) (0-0.2) K/uL Immature Gran # (Auto) (0.00-0.02) K/uL Polychromasia Poikilocytosis Echinocytes PT (9.0-12.0) Seconds INR (0.9-1.1) APTT (21.0-31.0) Seconds PTT Ratio Sodium (136-145) mmol/L Potassium (3.5-5.1) mmol/L Chloride (98-107) mmol/L Carbon Dioxide (21-32) mmol/L Anion Gap (3-11) BUN (7-18) mg/dl Creatinine (0.6-1.4) mg/dl Est Cr Clr Drug Dosing ml/min Est GFR ( Amer) ml/min Est GFR (Non-Af Amer) ml/min BUN/Creatinine Ratio (10-20) Glucose (70-99) mg/dl POC Glucose (70-99) mg/dl Estimat Average Glucose 131 mg/dl Hemoglobin A1c 6.2 H (4.5-5.6) % Calcium (8.5-10.1) mg/dl Magnesium (1.8-2.4) mg/dl Total Bilirubin (0.2-1) mg/dl Direct Bilirubin (0-0.2) mg/dl AST (15-37) U/L ALT (12-78) U/L Alkaline Phosphatase (45-117) U/L Ammonia 80.0 H (11-32) umol/L Troponin I (0-0.045) ng/ml Total Protein (6.4-8.2) gm/dl Albumin (3.4-5.0) gm/dl Globulin (2.5-4.0) gm/dl Albumin/Globulin Ratio (0.9-2) Lipase (73-393) U/L Urine Opiates Screen (Neg) Ur Methadone, Qual (Neg) Urine Barbiturates (Neg) Ur Phencyclidine (PCP) (Neg) U Amphetamin/Meth Scrn (Neg) MDMA (Ecstasy) Screen (Neg) U Benzodiazepines Scrn (Neg) Ur Cocaine Metabolite (Neg) U Marijuana (THC) Screen (Neg) Ethyl Alcohol mg/dL (0-3) mg/dl Anaplasma Smear A. phagocytophilum DNA Lyme Disease IgG Ab (Negative) Lyme Disease IgM Ab (Negative) COVID-19 Eval Order SARS-CoV-2 (PCR) (Negative) Hepatitis A IgM Ab Hep Bs Antigen Neg (Neg) Hep B Core IgM Ab Hepatitis C Antibody Pending 04/22/21 04/22/21 04/22/21 Range/Units 05:28 05:28 00:45 WBC 3.90 L (4.8-10.8) K/uL RBC 3.28 L (4.7-6.1) M/uL Hgb 11.1 L (14.0-18.0) g/dL Hct 32.7 L (42-52) % MCV 99.7 (80-100) fL MCH 33.8 (25-34) pg MCHC 33.9 (32-36) g/dL RDW Std Deviation 57.5 H (36.4-46.3) fL RDW Coeff of Polo 15.7 H (11.5-14.5) % Plt Count 71 L (130-400) K/uL MPV 12.3 H (7.4-10.4) fL Immature Gran % (Auto) 0.0 % Neut % (Auto) 57.7 % Lymph % (Auto) 18.5 % [place] % (Auto) 17.9 % Eos % (Auto) 4.6 % Baso % (Auto) 1.3 % Neut # (Auto) 2.25 (1.4-6.5) K/uL Lymph # (Auto) 0.72 L (1.2-3.4) K/uL [place] # (Auto) 0.70 H (0.11-0.59) K/uL Eos # (Auto) 0.18 (0-0.5) K/uL Baso # (Auto) 0.05 (0-0.2) K/uL Immature Gran # (Auto) 0.00 (0.00-0.02) K/uL Polychromasia Poikilocytosis Echinocytes PT (9.0-12.0) Seconds INR (0.9-1.1) APTT (21.0-31.0) Seconds PTT Ratio Sodium 142 (136-145) mmol/L Potassium 3.8 (3.5-5.1) mmol/L Chloride 114 H (98-107) mmol/L Carbon Dioxide 27 (21-32) mmol/L Anion Gap 1.0 L (3-11) BUN 16 (7-18) mg/dl Creatinine 0.88 (0.6-1.4) mg/dl Est Cr Clr Drug Dosing 132.7 ml/min Est GFR ( Amer) 111.3 ml/min Est GFR (Non-Af Amer) 96.0 ml/min BUN/Creatinine Ratio 17.8 (10-20) Glucose 73 (70-99) mg/dl POC Glucose 87 (70-99) mg/dl Estimat Average Glucose mg/dl Hemoglobin A1c (4.5-5.6) % Calcium 8.6 (8.5-10.1) mg/dl Magnesium 1.8 (1.8-2.4) mg/dl Total Bilirubin 1.4 H (0.2-1) mg/dl Direct Bilirubin 0.4 H (0-0.2) mg/dl AST 44 H (15-37) U/L ALT 36 (12-78) U/L Alkaline Phosphatase 80 (45-117) U/L Ammonia (11-32) umol/L Troponin I (0-0.045) ng/ml Total Protein 6.7 (6.4-8.2) gm/dl Albumin 2.5 L (3.4-5.0) gm/dl Globulin (2.5-4.0) gm/dl Albumin/Globulin Ratio (0.9-2) Lipase 308 (73-393) U/L Urine Opiates Screen (Neg) Ur Methadone, Qual (Neg) Urine Barbiturates (Neg) Ur Phencyclidine (PCP) (Neg) U Amphetamin/Meth Scrn (Neg) MDMA (Ecstasy) Screen (Neg) U Benzodiazepines Scrn (Neg) Ur Cocaine Metabolite (Neg) U Marijuana (THC) Screen (Neg) Ethyl Alcohol mg/dL (0-3) mg/dl Anaplasma Smear A. phagocytophilum DNA Lyme Disease IgG Ab (Negative) Lyme Disease IgM Ab (Negative) COVID-19 Eval Order SARS-CoV-2 (PCR) (Negative) Hepatitis A IgM Ab Hep Bs Antigen (Neg) Hep B Core IgM Ab Hepatitis C Antibody 04/21/21 04/21/21 04/21/21 Range/Units 22:33 22:10 22:00 WBC (4.8-10.8) K/uL RBC (4.7-6.1) M/uL Hgb (14.0-18.0) g/dL Hct (42-52) % MCV (80-100) fL MCH (25-34) pg MCHC (32-36) g/dL RDW Std Deviation (36.4-46.3) fL RDW Coeff of Polo (11.5-14.5) % Plt Count (130-400) K/uL MPV (7.4-10.4) fL Immature Gran % (Auto) % Neut % (Auto) % Lymph % (Auto) % [place] % (Auto) % Eos % (Auto) % Baso % (Auto) % Neut # (Auto) (1.4-6.5) K/uL Lymph # (Auto) (1.2-3.4) K/uL [place] # (Auto) (0.11-0.59) K/uL Eos # (Auto) (0-0.5) K/uL Baso # (Auto) (0-0.2) K/uL Immature Gran # (Auto) (0.00-0.02) K/uL Polychromasia Poikilocytosis Echinocytes PT (9.0-12.0) Seconds INR (0.9-1.1) APTT (21.0-31.0) Seconds PTT Ratio Sodium (136-145) mmol/L Potassium (3.5-5.1) mmol/L Chloride (98-107) mmol/L Carbon Dioxide (21-32) mmol/L Anion Gap (3-11) BUN (7-18) mg/dl Creatinine (0.6-1.4) mg/dl Est Cr Clr Drug Dosing ml/min Est GFR ( Amer) ml/min Est GFR (Non-Af Amer) ml/min BUN/Creatinine Ratio (10-20) Glucose (70-99) mg/dl POC Glucose (70-99) mg/dl Estimat Average Glucose mg/dl Hemoglobin A1c (4.5-5.6) % Calcium (8.5-10.1) mg/dl Magnesium (1.8-2.4) mg/dl Total Bilirubin (0.2-1) mg/dl Direct Bilirubin (0-0.2) mg/dl AST (15-37) U/L ALT (12-78) U/L Alkaline Phosphatase (45-117) U/L Ammonia 144.2 H (11-32) umol/L Troponin I (0-0.045) ng/ml Total Protein (6.4-8.2) gm/dl Albumin (3.4-5.0) gm/dl Globulin (2.5-4.0) gm/dl Albumin/Globulin Ratio (0.9-2) Lipase (73-393) U/L Urine Opiates Screen Neg (Neg) Ur Methadone, Qual Neg (Neg) Urine Barbiturates Neg (Neg) Ur Phencyclidine (PCP) Neg (Neg) U Amphetamin/Meth Scrn Neg (Neg) MDMA (Ecstasy) Screen Neg (Neg) U Benzodiazepines Scrn Neg (Neg) Ur Cocaine Metabolite Neg (Neg) U Marijuana (THC) Screen Neg (Neg) Ethyl Alcohol mg/dL (0-3) mg/dl Anaplasma Smear A. phagocytophilum DNA Lyme Disease IgG Ab (Negative) Lyme Disease IgM Ab (Negative) COVID-19 Eval Order SARS-CoV-2 (PCR) NEGATIVE (Negative) Hepatitis A IgM Ab Hep Bs Antigen (Neg) Hep B Core IgM Ab Hepatitis C Antibody 04/21/21 04/21/21 04/21/21 Range/Units 22:00 21:46 21:44 WBC (4.8-10.8) K/uL RBC (4.7-6.1) M/uL Hgb (14.0-18.0) g/dL Hct (42-52) % MCV (80-100) fL MCH (25-34) pg MCHC (32-36) g/dL RDW Std Deviation (36.4-46.3) fL RDW Coeff of Polo (11.5-14.5) % Plt Count (130-400) K/uL MPV (7.4-10.4) fL Immature Gran % (Auto) % Neut % (Auto) % Lymph % (Auto) % [place] % (Auto) % Eos % (Auto) % Baso % (Auto) % Neut # (Auto) (1.4-6.5) K/uL Lymph # (Auto) (1.2-3.4) K/uL [place] # (Auto) (0.11-0.59) K/uL Eos # (Auto) (0-0.5) K/uL Baso # (Auto) (0-0.2) K/uL Immature Gran # (Auto) (0.00-0.02) K/uL Polychromasia Poikilocytosis Echinocytes PT (9.0-12.0) Seconds INR (0.9-1.1) APTT (21.0-31.0) Seconds PTT Ratio Sodium (136-145) mmol/L Potassium (3.5-5.1) mmol/L Chloride (98-107) mmol/L Carbon Dioxide (21-32) mmol/L Anion Gap (3-11) BUN (7-18) mg/dl Creatinine (0.6-1.4) mg/dl Est Cr Clr Drug Dosing ml/min Est GFR ( Amer) ml/min Est GFR (Non-Af Amer) ml/min BUN/Creatinine Ratio (10-20) Glucose (70-99) mg/dl POC Glucose (70-99) mg/dl Estimat Average Glucose mg/dl Hemoglobin A1c (4.5-5.6) % Calcium (8.5-10.1) mg/dl Magnesium (1.8-2.4) mg/dl Total Bilirubin (0.2-1) mg/dl Direct Bilirubin (0-0.2) mg/dl AST (15-37) U/L ALT (12-78) U/L Alkaline Phosphatase (45-117) U/L Ammonia (11-32) umol/L Troponin I (0-0.045) ng/ml Total Protein (6.4-8.2) gm/dl Albumin (3.4-5.0) gm/dl Globulin (2.5-4.0) gm/dl Albumin/Globulin Ratio (0.9-2) Lipase (73-393) U/L Urine Opiates Screen (Neg) Ur Methadone, Qual (Neg) Urine Barbiturates (Neg) Ur Phencyclidine (PCP) (Neg) U Amphetamin/Meth Scrn (Neg) MDMA (Ecstasy) Screen (Neg) U Benzodiazepines Scrn (Neg) Ur Cocaine Metabolite (Neg) U Marijuana (THC) Screen (Neg) Ethyl Alcohol mg/dL < 3.0 (0-3) mg/dl Anaplasma Smear A. phagocytophilum DNA Lyme Disease IgG Ab (Negative) Lyme Disease IgM Ab (Negative) COVID-19 Eval Order Covid19 at [facility] SARS-CoV-2 (PCR) (Negative) Hepatitis A IgM Ab Hep Bs Antigen (Neg) Hep B Core IgM Ab Hepatitis C Antibody 04/21/21 04/21/21 04/21/21 Range/Units 21:02 21:01 21:01 WBC (4.8-10.8) K/uL RBC (4.7-6.1) M/uL Hgb (14.0-18.0) g/dL Hct (42-52) % MCV (80-100) fL MCH (25-34) pg MCHC (32-36) g/dL RDW Std Deviation (36.4-46.3) fL RDW Coeff of Polo (11.5-14.5) % Plt Count (130-400) K/uL MPV (7.4-10.4) fL Immature Gran % (Auto) % Neut % (Auto) % Lymph % (Auto) % [place] % (Auto) % Eos % (Auto) % Baso % (Auto) % Neut # (Auto) (1.4-6.5) K/uL Lymph # (Auto) (1.2-3.4) K/uL [place] # (Auto) (0.11-0.59) K/uL Eos # (Auto) (0-0.5) K/uL Baso # (Auto) (0-0.2) K/uL Immature Gran # (Auto) (0.00-0.02) K/uL Polychromasia Poikilocytosis Echinocytes PT (9.0-12.0) Seconds INR (0.9-1.1) APTT (21.0-31.0) Seconds PTT Ratio Sodium (136-145) mmol/L Potassium (3.5-5.1) mmol/L Chloride (98-107) mmol/L Carbon Dioxide (21-32) mmol/L Anion Gap (3-11) BUN (7-18) mg/dl Creatinine (0.6-1.4) mg/dl Est Cr Clr Drug Dosing ml/min Est GFR ( Amer) ml/min Est GFR (Non-Af Amer) ml/min BUN/Creatinine Ratio (10-20) Glucose (70-99) mg/dl POC Glucose (70-99) mg/dl Estimat Average Glucose mg/dl Hemoglobin A1c (4.5-5.6) % Calcium (8.5-10.1) mg/dl Magnesium (1.8-2.4) mg/dl Total Bilirubin (0.2-1) mg/dl Direct Bilirubin (0-0.2) mg/dl AST (15-37) U/L ALT (12-78) U/L Alkaline Phosphatase (45-117) U/L Ammonia (11-32) umol/L Troponin I (0-0.045) ng/ml Total Protein (6.4-8.2) gm/dl Albumin (3.4-5.0) gm/dl Globulin (2.5-4.0) gm/dl Albumin/Globulin Ratio (0.9-2) Lipase (73-393) U/L Urine Opiates Screen (Neg) Ur Methadone, Qual (Neg) Urine Barbiturates (Neg) Ur Phencyclidine (PCP) (Neg) U Amphetamin/Meth Scrn (Neg) MDMA (Ecstasy) Screen (Neg) U Benzodiazepines Scrn (Neg) Ur Cocaine Metabolite (Neg) U Marijuana (THC) Screen (Neg) Ethyl Alcohol mg/dL (0-3) mg/dl Anaplasma Smear See Comment A. phagocytophilum DNA Pending Lyme Disease IgG Ab Negative (Negative) Lyme Disease IgM Ab Negative (Negative) COVID-19 Eval Order SARS-CoV-2 (PCR) (Negative) Hepatitis A IgM Ab Hep Bs Antigen (Neg) Hep B Core IgM Ab Hepatitis C Antibody 04/21/21 04/21/21 04/21/21 Range/Units 21:01 21:01 21:01 WBC 3.73 L (4.8-10.8) K/uL RBC 3.34 L (4.7-6.1) M/uL Hgb 11.5 L (14.0-18.0) g/dL Hct 33.4 L (42-52) % MCV 100.0 (80-100) fL MCH 34.4 H (25-34) pg MCHC 34.4 (32-36) g/dL RDW Std Deviation 57.0 H (36.4-46.3) fL RDW Coeff of Polo 15.6 H (11.5-14.5) % Plt Count 74 L (130-400) K/uL MPV 12.3 H (7.4-10.4) fL Immature Gran % (Auto) 0.3 % Neut % (Auto) 59.9 % Lymph % (Auto) 17.2 % [place] % (Auto) 16.9 % Eos % (Auto) 4.6 % Baso % (Auto) 1.1 % Neut # (Auto) 2.24 (1.4-6.5) K/uL Lymph # (Auto) 0.64 L (1.2-3.4) K/uL [place] # (Auto) 0.63 H (0.11-0.59) K/uL Eos # (Auto) 0.17 (0-0.5) K/uL Baso # (Auto) 0.04 (0-0.2) K/uL Immature Gran # (Auto) 0.01 (0.00-0.02) K/uL Polychromasia 1+ Poikilocytosis Present Echinocytes 1+ PT 13.8 H (9.0-12.0) Seconds INR 1.4 H (0.9-1.1) APTT 29.9 (21.0-31.0) Seconds PTT Ratio 1.1 Sodium 142 (136-145) mmol/L Potassium 4.2 (3.5-5.1) mmol/L Chloride 114 H (98-107) mmol/L Carbon Dioxide 23 (21-32) mmol/L Anion Gap 5.0 (3-11) BUN 17 (7-18) mg/dl Creatinine 0.97 (0.6-1.4) mg/dl Est Cr Clr Drug Dosing 12.0 ml/min Est GFR ( Amer) 100.7 ml/min Est GFR (Non-Af Amer) 86.9 ml/min BUN/Creatinine Ratio 17.8 (10-20) Glucose 74 (70-99) mg/dl POC Glucose (70-99) mg/dl Estimat Average Glucose mg/dl Hemoglobin A1c (4.5-5.6) % Calcium 9.2 (8.5-10.1) mg/dl Magnesium 1.8 (1.8-2.4) mg/dl Total Bilirubin 1.2 H (0.2-1) mg/dl Direct Bilirubin (0-0.2) mg/dl AST 48 H (15-37) U/L ALT 38 (12-78) U/L Alkaline Phosphatase 94 (45-117) U/L Ammonia (11-32) umol/L Troponin I < 0.015 (0-0.045) ng/ml Total Protein 7.3 (6.4-8.2) gm/dl Albumin 2.5 L (3.4-5.0) gm/dl Globulin 4.8 H (2.5-4.0) gm/dl Albumin/Globulin Ratio 0.5 L (0.9-2) Lipase (73-393) U/L Urine Opiates Screen (Neg) Ur Methadone, Qual (Neg) Urine Barbiturates (Neg) Ur Phencyclidine (PCP) (Neg) U Amphetamin/Meth Scrn (Neg) MDMA (Ecstasy) Screen (Neg) U Benzodiazepines Scrn (Neg) Ur Cocaine Metabolite (Neg) U Marijuana (THC) Screen (Neg) Ethyl Alcohol mg/dL (0-3) mg/dl Anaplasma Smear A. phagocytophilum DNA Lyme Disease IgG Ab (Negative) Lyme Disease IgM Ab (Negative) COVID-19 Eval Order SARS-CoV-2 (PCR) (Negative) Hepatitis A IgM Ab Hep Bs Antigen (Neg) Hep B Core IgM Ab Hepatitis C Antibody 04/21/21 Range/Units 20:57 WBC (4.8-10.8) K/uL RBC (4.7-6.1) M/uL Hgb (14.0-18.0) g/dL Hct (42-52) % MCV (80-100) fL MCH (25-34) pg MCHC (32-36) g/dL RDW Std Deviation (36.4-46.3) fL RDW Coeff of Polo (11.5-14.5) % Plt Count (130-400) K/uL MPV (7.4-10.4) fL Immature Gran % (Auto) % Neut % (Auto) % Lymph % (Auto) % [place] % (Auto) % Eos % (Auto) % Baso % (Auto) % Neut # (Auto) (1.4-6.5) K/uL Lymph # (Auto) (1.2-3.4) K/uL [place] # (Auto) (0.11-0.59) K/uL Eos # (Auto) (0-0.5) K/uL Baso # (Auto) (0-0.2) K/uL Immature Gran # (Auto) (0.00-0.02) K/uL Polychromasia Poikilocytosis Echinocytes PT (9.0-12.0) Seconds INR (0.9-1.1) APTT (21.0-31.0) Seconds PTT Ratio Sodium (136-145) mmol/L Potassium (3.5-5.1) mmol/L Chloride (98-107) mmol/L Carbon Dioxide (21-32) mmol/L Anion Gap (3-11) BUN (7-18) mg/dl Creatinine (0.6-1.4) mg/dl Est Cr Clr Drug Dosing ml/min Est GFR ( Amer) ml/min Est GFR (Non-Af Amer) ml/min BUN/Creatinine Ratio (10-20) Glucose (70-99) mg/dl POC Glucose 77 (70-99) mg/dl Estimat Average Glucose mg/dl Hemoglobin A1c (4.5-5.6) % Calcium (8.5-10.1) mg/dl Magnesium (1.8-2.4) mg/dl Total Bilirubin (0.2-1) mg/dl Direct Bilirubin (0-0.2) mg/dl AST (15-37) U/L ALT (12-78) U/L Alkaline Phosphatase (45-117) U/L Ammonia (11-32) umol/L Troponin I (0-0.045) ng/ml Total Protein (6.4-8.2) gm/dl Albumin (3.4-5.0) gm/dl Globulin (2.5-4.0) gm/dl Albumin/Globulin Ratio (0.9-2) Lipase (73-393) U/L Urine Opiates Screen (Neg) Ur Methadone, Qual (Neg) Urine Barbiturates (Neg) Ur Phencyclidine (PCP) (Neg) U Amphetamin/Meth Scrn (Neg) MDMA (Ecstasy) Screen (Neg) U Benzodiazepines Scrn (Neg) Ur Cocaine Metabolite (Neg) U Marijuana (THC) Screen (Neg) Ethyl Alcohol mg/dL (0-3) mg/dl Anaplasma Smear A. phagocytophilum DNA Lyme Disease IgG Ab (Negative) Lyme Disease IgM Ab (Negative) COVID-19 Eval Order SARS-CoV-2 (PCR) (Negative) Hepatitis A IgM Ab Hep Bs Antigen (Neg) Hep B Core IgM Ab Hepatitis C Antibody
[2021-04-22 10:35] LABS: Hepatitis C IgG 13Yrs+Old_Rflx Neg (Neg)
[2021-04-22] MEDS: ACETAMINOPHEN 325 MG TAB PO PRN ×2 (11:12→20:51)
[2021-04-23 05:37] LABS: Hemoglobin 10.9 g/dL (14.0-18.0); Mean Corpuscular Hemoglobin 33.9 pg (25-34); Mean Corpuscular Hgb Conc 34.1 g/dL (32-36); Mean Corpuscular Volume 99.4 fL (80-100); RDW Coefficient of Variation 15.6 % (11.5-14.5); RDW Standard Deviation 56.9 fL (36.4-46.3); Red Blood Count 3.22 M/uL (4.7-6.1); White Blood Count 3.68 K/uL (4.8-10.8)
[2021-04-23 05:45] LABS: INR 1.4 (0.9-1.1); Prothrombin Time 14.1 Seconds (9.0-12.0)
--- NOTE | 2021-04-23 05:48 | Electrocardiogram Report ---
Test Reason : Blood Pressure : / mmHG Vent. Rate : 081 BPM Atrial Rate : 081 BPM P-R Int : 150 ms QRS Dur : 088 ms QT Int : 404 ms P-R-T Axes : 056 025 044 degrees QTc Int : 469 ms Normal sinus rhythm When compared with ECG of 23-MAR-2012 07:54, QT has lengthened Confirmed by Chucho Wellington ([id number]) on 04/23/2021 5:47:31 AM Referred By: REFERRED SELF Confirmed By:Chucho Wellington
[2021-04-23 05:59] LABS: Albumin Level 2.4 gm/dl (3.4-5.0); BUN Creatinine Ratio 15.6 (10-20); Calcium 8.3 mg/dl (8.5-10.1); Creatinine Clr Calc Pharmacy 124.4 ml/min; Est GFR (African American) 104.6 ml/min; Est GFR (Non-African American) 90.3 ml/min; Potassium 3.8 mmol/L (3.5-5.1)
[2021-04-23 06:02] LABS: Albumin Globulin Ratio 0.6 (0.9-2); Bilirubin,Total 1.6 mg/dl (0.2-1); Globulin 4.3 gm/dl (2.5-4.0); Total Protein 6.7 gm/dl (6.4-8.2)
[2021-04-23 06:08] LABS: Mean Platelet Volume 11.6 fL (7.4-10.4); Platelet Count 71 K/uL (130-400)
--- NOTE | 2021-04-23 07:09 | Discharge Summary ---
Date of Service April 23, 2021 Admission HPI Per Admitting Provider 55-year-old male with past medical history significant for type 2 diabetes, hyperlipidemia, chronic idiopathic gout, primary hypertension, obesity, diverticulosis of colon, family history of colon cancer, presents with c onfusion. The patient works in the [employer]. His [id number]-rti also works here with whom he shares the ride; and as per the ER, [id number] noticed that since one week he had episodes where he was not himself, he was confused at times, and at work also it was noticed that he was confused at one point of time. When he came in, he was a stroke alert. He had a CT of the head and CTA of the head and neck and were okay and [place]а neurologist also examined the patient and thought it could be some ongoing encephalopathy. The patient seems to be okay currently, alert and oriented, somewhat a little shaky. But his labs showed him to have pancytopenia, WBC of 3.7, hemoglobin 11.5, and platelets of 74. Lyme screen was negative. The patient denies any alcohol use. He takes Aleve once in a while, but does not take any Tylenol. His labs on 05/10/2020 also showed white count of 4.1, hemoglobin 12.2 at that time, and platelets 91. His ammonia level came back as 144, total bilirubin 1.2, AST 48, ALT 38, alkaline phosphatase 94. INR 1.4. PT 13.8. Currently resting comfortably and hemodynamically stable. Denies any chest pain, no shortness of breath, no cough, no fever, no chills, no headache, no blurred visions, no earache, no runny nose, no sore throat. Appetite okay, no dysphagia. He had an episode of blood in the stools about a week ago, just one episode. He took one dose of water pill for lower extremity swelling last 1 month ago. Ambulates okay. He says he had belly pain several years ago. Currently denies any abdominal pain. Admission Exam Per Admitting Provider PHYSICAL EXAMINATION: GENERAL: The patient is obese, not in acute distress. VITAL SIGNS: Temperature afebrile, pulse 74, respiratory rate 16, blood pressure 152/88, oxygen 97% on room air. HEENT: Pupils equal, round, and reactive to light. No pallor, no icterus. Oral mucosa moist. NECK: No JVD, no neck masses. CARDIOVASCULAR: S1 and S2 heard. Regular rate and rhythm. No murmur, no gallop. RESPIRATORY SYSTEM: Normal AP diameter. No accessory muscle use. No wheezing, no crackles. ABDOMEN: Soft, bowel sounds present, nontender, no distention. CENTRAL NERVOUS SYSTEM: Alert and oriented to name, place, could tell month and year, could not tell exact date, could tell his date of . Speech is clear. No facial droop. Power is 5/5 in all extremities. Coordination of movements normal. No pronator drift. EXTREMITIES: Mild pedal edema present, no erythema seen. Principal Diagnosis 1. Confusion: Hepatic encephalopathy, elevated ammonia level, pancytopenia. 2. Diabetes:Placed on insulin sliding scale and Lantus. 3. Hyperlipidemia: 4. Hypertension: 5. History of gout: 6. Gastroesophageal reflux disease: 7. Pancytopenia: Discharge Exam See below Discharge Data Allergies Allergy/AdvReac Type Severity Reaction Status Date / Time aspirin Allergy NOSE BLEEDS Verified 04/21/21 20:38 Consultations 04/21/21 22:40 ED Decision to Admit Stat 04/22/21 08:00 Consult Gastroenterology Routine Ordered Studies 04/21/21 20:33 CT angio head w con Stat CT angio neck with con Stat CT head/brain wo con Stat 04/21/21 23:30 CT abd pelvis IV con only Urgent Current Diagnoses Other pancytopenia (04/21/21) Encephalopathy, unspecified (04/21/21) Altered mental status, unspecified (04/21/21) Allergies aspirin Allergy (Verified 04/21/21 20:38) NOSE BLEEDS Height/Weight/Isolation Height 5 ft 10 in Weight 141 kg Chemistry 04/21/21 04/22/21 04/23/21 21:01 05:28 05:23 Sodium 142 142 142 Potassium 4.2 3.8 3.8 Chloride 114 H 114 H 113 H Carbon Dioxide 23 27 27 Anion Gap 5.0 1.0 L 2.0 L BUN 17 16 15 Creatinine 0.97 0.88 0.94 Glucose 74 73 82 Hospital Course (1) Encephalopathy: (2) Acute alteration in mental status: (3) Pancytopenia: ASSESSMENT AND PLAN: This 55-year-old male presents with confusion. 1. Confusion: Hepatic encephalopathy with elevated ammonia level. The patient also has pancytopenia. CT of the head and CTA of the head and neck are unremarkable. Has some tremors in the hands. Lactulose 30 g q.i.d. Follow NH3 levels, GI saw patient, OP EUS, Colonoscopy, DC home today on Lactulose 2. History of diabetes: Placed on insulin sliding scale and Lantus. 3. Hyperlipidemia: Continue statin. 4. Hypertension: Continue his Coreg and lisinopril. Monitor blood pressure. 5. History of gout: Continue allopurinol. 6. Gastroesophageal reflux disease: Continue omeprazole. 7. Pancytopenia: Cirrhosis 8. Deep venous thrombosis prophylaxis: Sequential compression devices. Labs Checked ROS-No Headache, No Visual Changes, No Nausea, No Vomiting, No Fever, No Chills, No Neck Pain or Stiffness, No Chest Pain, No Palpitations, No SOB, No BINGHAM, No Cough, No Sputum, No Wheezing, No Abdominal Pain, No Diarrhea, No Hematemesis, No Hemoptysis, No Unexpected Weight Loss, No Flank pain, No Melena, No Hematochezia, No Frequency, No Urgency, No Burning, No Hematuria, No Rashes, No Diaphoresis. Appetite is Normal, Feeling Better Physical Exam Gen-AAO x 3, NAD, Afebrile, Obese Head-NCAT, EOMI, PERRLA, Anicteric Sclera, No Posterior Pharyngeal Erythema Neck-Supple, No JVD, No Thyromegaly, No Masses, No LAD, No Bruits Lungs-Clear to Auscultation Bilaterally, No Rales, No Rhonchi, No Wheezing, No Crepitus Chest-No S4, +S1, +S2, No S3, No Murmurs, No Rubs, No Gallops, No Ectopy Abdomen-Soft, Bowel Sounds Present, Non Tender, Non Distended, No Hepatomegaly, No Splenomegaly, No Palpable Masses, No Rebound, No Rigidity, No Guarding Musculoskeletal-Full Range of Motion Bilaterally, No CVAT Extremities-No Cyanosis, No Clubbing, No Edema Nuero-Cranial Nerves II-XII grossly intact, Motor WNL, DTRs WNL, Strength WNL, Non Focal Psych-Normal Mood Total Time Total Time Spent Total Time Spent (In Minutes): 45 min Total Time Includes: Examination of the Patient, Discharge Planning, Medication Reconciliation and Communication With Other Providers Discharge Plan Discharge Items Patient Disposition: Home - Self-Care Reason For Visit: CONFUSION Discharge Diagnosis: 1. Confusion: Hepatic encephalopathy, elevated ammonia level, pancytopenia. 2. Diabetes:Placed on insulin sliding scale and Lantus. 3. Hyperlipidemia: 4. Hypertension: 5. History of gout: 6. Gastroesophageal reflux disease: 7. Pancytopenia: Condition on Discharge: Good Health Concerns: Ammonia levels rising because of not taking Lactulose Activity: Resume your previous activity Lifting: Gradually increase as tolerated Bathing: No limitations Sexual Activity: When tolerated Exercise/Sports: Gradually increase as tolerated Driving/Machine Use: No limitations Weightbearing: Full weightbearing Non-emergency contact: Primary Care Provider and Embedded Software Engineer Call non-emergency contact if: you have any medication questions Follow-up/Referrals: Kathrine Hatfield MD [Physician] - (Recommending outpatient EUS, Colonoscopy) Stanford Mays MD [Primary Care Provider] - Diet: Heart Healthy Addtl Attending Provider Instructions: Take your lactulose as presribed to have 3-4 loose BMs per day, you can add or subtract dosages and frequency to maintain 3-4 loose BMS per day Pending Studies at Discharge: No Stand-Alone Forms: My [employer], Smoking Cessation Medications and DC Order Prescriptions: New lactulose 20 gram/30 mL solution 20 g PO TID Qty: 3000 RF: 3 Continued metformin 500 mg Tablet 500 mg PO AMPM RF: 0 carvedilol 12.5 mg Tablet 12.5 mg PO BID RF: 0 glimepiride 4 mg Tablet 4 mg PO QAM RF: 0 omeprazole 20 mg Capsule,Delayed Release(Dr/Ec) 20 mg PO QAM RF: 0 allopurinol 300 mg Tablet 300 mg PO QAM RF: 0 lisinopril 5 mg Tablet 5 mg PO QAM RF: 0 pioglitazone [Actos] 30 mg Tablet 30 mg PO QAM RF: 0 multivitamin Tablet 1 tab PO QAM RF: 0 ascorbic acid (vitamin C) [Vitamin C] 500 mg Tablet 500 mg PO QAM RF: 0 atorvastatin 20 mg tablet 20 mg PO DAILY RF: 0 Discharge Orders: Discharge Order (Routine); Ordered 04/23/21 Ordered By: Juan Francisco Clancy/Other Patient Handouts: Managing Type 2 Diabetes, A1C Admission Data Admit Date/Time: 04/21/21 23:30 Attending Provider: Juan Francisco Roberts Admit Provider: Luciano Hernandez Primary Care Provider: Stanford Mays Other Providers: Luciano Hernandez ; Ren Pineda ; Maura Ruth ; Suzanna Jones ; Flory Saunders ; Nick Umanzor ; Tina Tobias ; Kathrine Hatfield ; Gerardo Workman ; Keli Bateman ; Juli Krause ; Paige Barnes ; Jayla Armstrong ; Atul Polk
[2021-04-23] MEDS: INSULIN ASPART 100 UNITS/ML 3 ML PEN SC SCH (07:41)
[2021-04-23] MEDS: carvediloL 12.5 MG TAB PO SCH (07:42)
[2021-04-23] MEDS: PANTOprazole 40 MG TAB PO SCH (07:42)
[2021-04-23] MEDS: lisinopril 5 MG TAB PO SCH (07:42)
[2021-04-23] MEDS: INSULIN GLARGINE SOLOSTAR 100 UNITS/ML 3 ML PEN SC SCH (07:42)
[2021-04-23] MEDS: allopurinoL 300 MG TAB PO SCH (07:43)
[2021-04-23] MEDS: MULTIVITAMIN TAB PO SCH (07:43)
[2021-04-23] MEDS: ATORVASTATIN 20 MG TAB PO SCH (07:43)
[2021-04-23] MEDS: LACTULOSE SYRUP 30 GM/45 ML UDP PO SCH (07:43)
[2021-04-23] MEDS: ASCORBIC ACID 500 MG TAB PO SCH (07:43)
[2021-04-23 11:01] LABS: Hepatitis A Antibody IgM NON-REACTIVE (NON-REACTIVE); Hepatitis B Core Antibody IgM NON-REACTIVE (NON-REACTIVE)
== END 2021-04-23 08:54 | disposition home or self-care (01) | DRG 442 ==
LOC: ED 20:06 → 2S 23:30 → INTOOBSV 23:30 → 2S 04-22 00:05

== ENCOUNTER 2022-01-13 17:28 | Inpatient (IN) ==
--- NOTE | 2022-01-13 18:11 | Emergency Department Note ---
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 The patient was brought directly to room a 3 by the warehouse operations manager. The patient works for [employer] and appeared to be not himself when he presented to [facility] today. He was having difficulty using a bob. Normally this is not something he would have difficulty doing. The patient denies having any chest pain or trouble breathing. He denies having any headache. He states he has been having lower extremity cramping but this is not new this is been ongoing for quite some time. He denies having any recent trauma. He states he has been compliant with his usual outpatient medications. He is not been seen by his primary care physician recently. Further history is obtained from the patient's brother who states that the patient has not been himself for approximately 1 week. He did not recognize any trauma or other changes. The patient has been driving. ROS: See above HPI for pertinent positives & negatives. A total of 10 systems reviewed and were otherwise negative. PAST MEDICAL HISTORY: See Below PAST SURGICAL HISTORY: See Below FAMILY HISTORY: See Below SOCIAL HISTORY: See Below HOME MEDICATIONS: See Below ALLERGIES: See Below VITALS: See Below PHYSICAL EXAMINATION: GENERAL: The patient is awake and alert. He does not appear to be anxious or uncomfortable. EYES: The conjunctivae are clear. The pupils are round and reactive. EARS, NOSE, MOUTH AND THROAT: The nose is without any evidence of any deformity. NECK: The neck is nontender and supple. RESPIRATORY: Normal respiratory effort is noted there is no evidence of wheezing rhonchi or rales CARDIOVASCULAR: Regular rate and rhythm noted there no murmurs rubs or gallops normal S1 normal S2. GASTROINTESTINAL: The abdomen is soft. Abdomen is nontender. MUSCULOSKELETAL/EXTREMITIES: There is no evidence of gross deformity full range of motion is noted in the hips and shoulders. SKIN: There is no obvious evidence of any rash. There are no petechiae, pallor or cyanosis noted. NEUROLOGIC: Patient is awake and answers questions slowly but appropriately. Speech is pressured but understandable. The patient is oriented to person place but not time. He is oriented to situation. 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 Consulting Engineer strength was symmetric. There is no facial droop. MEDICAL DECISION MAKING: The patient is a 56-year-old male who presented to the emergency department for an evaluation of altered mental status. 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 He was brought to the emergency department by the warehouse operations manager. 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 He was having trouble doing his job and was brought to the emergency department because of altered mental status. His blood sugar was checked and was not low. The patient was made a stroke alert because of his symptoms but after further history is obtained this was canceled as the patient has had ongoing symptoms for at least 24 hours according to family members. The patient does have a history of hepatic encephalopathy. I discussed the patient's laboratory and radiographic studies with him. He was treated with lactulose in the emergency department. [facility] They have agreed to evaluate the patient in the emergency department for further management and disposition. Triage Nursing notes reviewed. Prior medical records reviewed Vital Signs: reviewed and remarkable for hypotension. Differential diagnosis: Infection, hypoglycemia, electrolyte abnormalities, overdose, toxicologic, cardiac sources, intracerebral event, neurologic, trauma, as well as other pathologies. ER treatment provided: See below Diagnostics interpreted by me: ECG: KG was obtained in the emergency department. My interpretation is normal sinus rhythm at 76 bpm. There is no ectopy. There is no acute ST segment abnormalities. This was compared to a tracing from April 212020. No changes were noted. Cardiac Monitoring: An order was placed for continuous cardiac monitoring. The monitor shows a rate of 67 bpm with sinus rhythm. Laboratory studies: As stated above and show below. Imaging studies: See below Consultation(s): I discussed this case with Dr. Mary segundo [facility]. 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 Beliefs That Will Affect Care: None marital status: Single Current Living Situation: Family Current Living Situation Comment: Mother, brother Other Information That Helps Us Care for You: No Feels Safe at Home: Yes Safety Concerns: Feels Safe At This Time Assistive Devices: Glasses Allergies Allergies Allergy/AdvReac Type Severity Reaction Status Date / Time aspirin Allergy Intermediate NOSE Verified 01/13/22 18:34 BLEEDS--IF TAKES REGULARLY Home Meds Home Medications Medication Instructions Recorded Confirmed allopurinol 300 mg tablet 300 mg PO QAM 06/03/19 01/13/22 ascorbic acid (vitamin C) 500 mg 500 mg PO QAM 06/03/19 01/13/22 tablet (Vitamin C) carvedilol 12.5 mg tablet 12.5 mg PO BID 06/03/19 01/13/22 lisinopril 5 mg tablet 5 mg PO QAM 06/03/19 01/13/22 metformin 500 mg tablet 500 mg PO AMPM 06/03/19 01/13/22 multivitamin 1 tab PO QAM 06/03/19 01/13/22 omeprazole 20 mg capsule,delayed 20 mg PO QAM 06/03/19 01/13/22 release pioglitazone 30 mg tablet (Actos) 30 mg PO QAM 06/03/19 01/13/22 atorvastatin 20 mg tablet 20 mg PO DAILY 04/21/21 01/13/22 furosemide 20 mg tablet 10 mg PO QAM 01/13/22 01/13/22 glimepiride 1 mg tablet 1 mg PO DAILY 01/13/22 01/13/22 lactulose 20 gram/30 mL oral 20 g PO TID PRN 01/13/22 01/13/22 solution meloxicam 15 mg tablet 15 mg PO DAILY 01/13/22 01/13/22 Results & Data (ED) Vital Signs Vital Signs - 24 hr 01/13/22 17:30 01/13/22 18:11 01/13/22 18:30 Temperature 36.8 C Temperature Source Temporal Artery Scan Pulse Rate 70 83 Pulse Rate [Apical] 75 Pulse Rate from SpO2 Sensor 83 Respiratory Rate 16 13 14 Blood Pressure 123/67 148/78 H Blood Pressure [Right Arm] 139/86 Blood Pressure Mean 85 101 Blood Pressure Mean [Right Arm] 103 Blood Pressure Position Sitting Blood Pressure Position [Right Arm] Pulse Oximetry 99 99 100 Oxygen Delivery Method Room Air Room Air Room Air Sepsis Recent Fever Within 48 Hours No Sepsis New/Unexplained Change in Mental Status No Sepsis Action Taken by Nursing No Action Required 01/13/22 19:28 01/13/22 20:41 01/13/22 21:00 Temperature Temperature Source Pulse Rate Pulse Rate [Apical] 76 73 67 Pulse Rate from SpO2 Sensor Respiratory Rate 14 19 Blood Pressure Blood Pressure [Right Arm] 125/72 120/67 99/73 L Blood Pressure Mean Blood Pressure Mean [Right Arm] 89 84 81 Blood Pressure Position Blood Pressure Position [Right Arm] Sitting Pulse Oximetry 98 97 Oxygen Delivery Method Room Air Room Air Sepsis Recent Fever Within 48 Hours Sepsis New/Unexplained Change in Mental Status Sepsis Action Taken by Halfway Medications Current Medication List: was personally reviewed by me Laboratory Data Attestation: I reviewed the patient's lab results. Result diagrams: 01/13/22 18:09 01/13/22 18:09 Lab Results 01/13/22 01/13/22 01/13/22 Range/Units 17:39 18:09 18:09 WBC 3.80 L (4.8-10.8) K/uL RBC 3.27 L (4.7-6.1) M/uL Hgb 11.6 L (14.0-18.0) g/dL Hct 33.9 L (42-52) % MCV 103.7 H (80-100) fL MCH 35.5 H (25-34) pg MCHC 34.2 (32-36) g/dL RDW Std Deviation 57.6 H (36.4-46.3) fL RDW Coeff of [place] 15.1 H (11.5-14.5) % Plt Count 76 L (130-400) K/uL MPV 11.8 H (7.4-10.4) fL Immature Gran % (Auto) 0.0 % Neut % (Auto) 60.0 % Lymph % (Auto) 15.8 % [place] % (Auto) 17.4 % Eos % (Auto) 5.5 % Baso % (Auto) 1.3 % Neut # (Auto) 2.28 (1.4-6.5) K/uL Lymph # (Auto) 0.60 L (1.2-3.4) K/uL [place] # (Auto) 0.66 H (0.11-0.59) K/uL Eos # (Auto) 0.21 (0-0.5) K/uL Baso # (Auto) 0.05 (0-0.2) K/uL Immature Gran # (Auto) 0.00 (0.00-0.02) K/uL Platelet Estimate Decreased L (Normal) RBC Morphology Unremarkable PT 14.2 H (9.0-12.0) Seconds INR 1.4 H (0.9-1.1) APTT 30.5 (21.0-31.0) Seconds PTT Ratio 1.1 Sodium (136-145) mmol/L Potassium (3.5-5.1) mmol/L Chloride (98-107) mmol/L Carbon Dioxide (21-32) mmol/L Anion Gap (3-11) BUN (6-23) mg/dl Creatinine (0.6-1.4) mg/dl Est Cr Clr Drug Dosing ml/min Est GFR ( Amer) ml/min Est GFR (Non-Af Amer) ml/min BUN/Creatinine Ratio (10-20) Glucose (70-99(Fasting)) mg/dl POC Glucose 126 H (70-99) mg/dl Calcium (8.5-10.1) mg/dl Magnesium (1.7-2.4) mg/dl Total Bilirubin (0.2-1.0) mg/dl AST (13-39) U/L ALT (7-52) U/L Alkaline Phosphatase (34-104) U/L Ammonia (18-72) umol/L Total Creatine Kinase (30-223) U/L Troponin I (0-0.04) ng/ml Total Protein (6.0-8.3) gm/dl Albumin (3.4-5.0) gm/dl Globulin (2.5-4.0) gm/dl Albumin/Globulin Ratio (0.9-2) Urine Color Urine Appearance (Clear) Urine pH (4.5-7.5) Ur Specific [place] (1.000-1.030) Urine Protein (Negative) Urine Glucose (UA) (Negative) Urine Ketones (Negative) Urine Blood (Negative) Urine Nitrite (Negative) Urine Bilirubin (Negative) Urine Urobilinogen (Negative) Ur Leukocyte Esterase (Negative) SARS-CoV-2, RNA, NAAT (NEGATIVE) 01/13/22 01/13/22 01/13/22 Range/Units 18:09 18:32 18:33 WBC (4.8-10.8) K/uL RBC (4.7-6.1) M/uL Hgb (14.0-18.0) g/dL Hct (42-52) % MCV (80-100) fL MCH (25-34) pg MCHC (32-36) g/dL RDW Std Deviation (36.4-46.3) fL RDW Coeff of Polo (11.5-14.5) % Plt Count (130-400) K/uL MPV (7.4-10.4) fL Immature Gran % (Auto) % Neut % (Auto) % Lymph % (Auto) % [place] % (Auto) % Eos % (Auto) % Baso % (Auto) % Neut # (Auto) (1.4-6.5) K/uL Lymph # (Auto) (1.2-3.4) K/uL [place] # (Auto) (0.11-0.59) K/uL Eos # (Auto) (0-0.5) K/uL Baso # (Auto) (0-0.2) K/uL Immature Gran # (Auto) (0.00-0.02) K/uL Platelet Estimate (Normal) RBC Morphology PT (9.0-12.0) Seconds INR (0.9-1.1) APTT (21.0-31.0) Seconds PTT Ratio Sodium 137 (136-145) mmol/L Potassium 3.8 (3.5-5.1) mmol/L Chloride 109 H (98-107) mmol/L Carbon Dioxide 23 (21-32) mmol/L Anion Gap 5 (3-11) BUN 15 (6-23) mg/dl Creatinine 0.94 (0.6-1.4) mg/dl Est Cr Clr Drug Dosing 120.8 ml/min Est GFR ( Amer) 103.9 ml/min Est GFR (Non-Af Amer) 89.6 ml/min BUN/Creatinine Ratio 16.0 (10-20) Glucose 127 H (70-99(Fasting)) mg/dl POC Glucose (70-99) mg/dl Calcium 8.6 (8.5-10.1) mg/dl Magnesium 1.8 (1.7-2.4) mg/dl Total Bilirubin 1.6 H (0.2-1.0) mg/dl AST 61 H (13-39) U/L ALT 34 (7-52) U/L Alkaline Phosphatase 86 (34-104) U/L Ammonia 86.0 H (18-72) umol/L Total Creatine Kinase 283 H (30-223) U/L Troponin I < 0.03 (0-0.04) ng/ml Total Protein 6.9 (6.0-8.3) gm/dl Albumin 3.0 L (3.4-5.0) gm/dl Globulin 3.9 (2.5-4.0) gm/dl Albumin/Globulin Ratio 0.8 L (0.9-2) Urine Color Urine Appearance (Clear) Urine pH (4.5-7.5) Ur Specific [place] (1.000-1.030) Urine Protein (Negative) Urine Glucose (UA) (Negative) Urine Ketones (Negative) Urine Blood (Negative) Urine Nitrite (Negative) Urine Bilirubin (Negative) Urine Urobilinogen (Negative) Ur Leukocyte Esterase (Negative) SARS-CoV-2, RNA, NAAT NEGATIVE (NEGATIVE) 01/13/22 Range/Units 18:45 WBC (4.8-10.8) K/uL RBC (4.7-6.1) M/uL Hgb (14.0-18.0) g/dL Hct (42-52) % MCV (80-100) fL MCH (25-34) pg MCHC (32-36) g/dL RDW Std Deviation (36.4-46.3) fL RDW Coeff of [place]o (11.5-14.5) % Plt Count (130-400) K/uL MPV (7.4-10.4) fL Immature Gran % (Auto) % Neut % (Auto) % Lymph % (Auto) % [place] % (Auto) % Eos % (Auto) % Baso % (Auto) % Neut # (Auto) (1.4-6.5) K/uL Lymph # (Auto) (1.2-3.4) K/uL [place] # (Auto) (0.11-0.59) K/uL Eos # (Auto) (0-0.5) K/uL Baso # (Auto) (0-0.2) K/uL Immature Gran # (Auto) (0.00-0.02) K/uL Platelet Estimate (Normal) RBC Morphology PT (9.0-12.0) Seconds INR (0.9-1.1) APTT (21.0-31.0) Seconds PTT Ratio Sodium (136-145) mmol/L Potassium (3.5-5.1) mmol/L Chloride (98-107) mmol/L Carbon Dioxide (21-32) mmol/L Anion Gap (3-11) BUN (6-23) mg/dl Creatinine (0.6-1.4) mg/dl Est Cr Clr Drug Dosing ml/min Est GFR ( Amer) ml/min Est GFR (Non-Af Amer) ml/min BUN/Creatinine Ratio (10-20) Glucose (70-99(Fasting)) mg/dl POC Glucose (70-99) mg/dl Calcium (8.5-10.1) mg/dl Magnesium (1.7-2.4) mg/dl Total Bilirubin (0.2-1.0) mg/dl AST (13-39) U/L ALT (7-52) U/L Alkaline Phosphatase (34-104) U/L Ammonia (18-72) umol/L Total Creatine Kinase (30-223) U/L Troponin I (0-0.04) ng/ml Total Protein (6.0-8.3) gm/dl Albumin (3.4-5.0) gm/dl Globulin (2.5-4.0) gm/dl Albumin/Globulin Ratio (0.9-2) Urine Color Yellow Urine Appearance Clear (Clear) Urine pH 7.0 (4.5-7.5) Ur Specific [place] 1.023 (1.000-1.030) Urine Protein Negative (Negative) Urine Glucose (UA) Negative (Negative) Urine Ketones Negative (Negative) Urine Blood Negative (Negative) Urine Nitrite Negative (Negative) Urine Bilirubin Negative (Negative) Urine Urobilinogen Negative (Negative) Ur Leukocyte Esterase Negative (Negative) SARS-CoV-2, RNA, NAAT (NEGATIVE) Administered Medications Insulin Glargine (Insulin Glargine Solostar 100 Units/Ml 3 Ml Pen) 6 units SC BID MOODY Stop: 02/12/22 20:59 Last Admin: 01/13/22 21:20 Dose: 6 units Documented by: [id number] Cosigned by: [id number] Lactulose (Lactulose Syrup 30 Gm/45 Ml Udp) 30 gm PO QID MOODY Stop: 02/12/22 20:59 Last Admin: 01/13/22 21:19 Dose: 30 gm Documented by: [id number] Discontinued Medications Ioversol (Optiray 320 125ml) 117 ml IV ONCE ONE Stop: 01/13/22 18:30 Last Admin: 01/13/22 18:29 Dose: 117 ml Documented by: [id number] Lactulose (Lactulose Syrup 30 Gm/45 Ml Udp) 30 gm PO NOW STA Stop: 01/13/22 19:02 Last Admin: 01/13/22 19:54 Dose: 30 gm Documented by: [id number] Imaging Data Radiologist's Impression: Chest X-Ray 01/13/22 18:00 XR chest 1V portable CLINICAL HISTORY: Stroke Like Symptoms COMPARISON STUDY: Chest radiograph April 21, 2021. FINDINGS: Lung volumes are normal. Lungs are clear. There is no pneumothorax or pleural effusion. Cardiomegaly is unchanged. Mediastinal contours are normal. There is possible pulmonary vascular congestion without evidence for pulmonary edema. IMPRESSION: Cardiomegaly. Pulmonary vascular congestion without overt pulmonary edema. ACT 112: Negative or not required by law. Electronically signed by: Issac Rankin M.D. 01/13/2022 6:[address] 01/13/22 18:00 CT OF THE HEAD WITHOUT CONTRAST CLINICAL HISTORY: Stroke Like Symptoms. Speech difficulty. COMPARISON STUDY: Head CT April 21, 2021. CT DOSE: 1441.90 mGycm TECHNIQUE: Helical axial images of the head were obtained without IV contrast. Automated exposure control was utilized for the study. A dose lowering technique was utilized adhering to the principles of ALARA. FINDINGS: No acute intracranial hemorrhage, midline shift or mass effect is present. The ventricular system is unremarkable. The basal cisterns are patent. No extra-axial collections are present. There are no findings to suggest acute dural sinus thrombosis or acute territorial infarct. No significant calvarial abnormalities are present. Visualized portions of the sinuses and mastoid air cells are clear. IMPRESSION: No acute intracranial findings. ACT 112: Negative or not required by law. Electronically signed by: Issac Rankin M.D. 01/13/2022 6:25 PM Head CTA 01/13/22 18:00 CTA ANGIOGRAPHY OF THE HEAD CLINICAL HISTORY: Stroke Like Symptoms. Speech difficulty. COMPARISON STUDY: CTA of the head April 21, 2021. TECHNIQUE: Helical axial images of the head were obtained following uneventful intravenous administration of 117 cc of Optiray. Sagittal and coronal recon structions were viewed as well as maximal intensity projections on an independent 3-D workstation. Automated exposure control was utilized for the study. A dose lowering technique was utilized adhering to the principles of ALARA. CT DOSE: 1368.12 mGycm FINDINGS: Exam is mildly compromised by artifact. No acute intracranial hemorr albino, midline shift or mass effect is present. Ventricular system is normal. Basal cisterns are patent. There are no extra axial collections. The bilateral M1, M2, A1 and A2 segments are patent. There is no central vessel occlusion. No intracranial aneurysm is present. There are bilateral posterior communicating arteries. Posterior circulation is intact. IMPRESSION: No central vessel occlusion. No intracranial aneurysm. ACT 112: Negative or not required by law. Electronically signed by: Issac Rankin M.D. 01/13/2022 6:36 PM Neck CTA 01/13/22 18:00 CT ANGIOGRAPHY OF THE NECK WITH CONTRAST CLINICAL HISTORY: Stroke Like Symptoms. Speech difficulty. COMPARISON STUDY: CTA of the neck April 21, 2021. Technique: CT angiography of the carotid and vertebral arteries was obtained using Optiray and 3D reconstruction on an independent workstation. NASCET criteria was utilized. Automated exposure control was utilized for the study. A dose lowering technique was utilized adhering to the principles of ALARA. Findings: This exam is mildly compromised by artifact although remains diagnostic. Lung apices are unremarkable. No acute cervical spine fracture is noted. Prominent mediastinal nodes are unchanged since CTA of April 21, 2021. The bilateral common carotid, cervical internal carotid and vertebral arteries are patent. No stenosis or dissection within these vessels is identified. There is no aneurysm within the neck. CTA of the head will be reported separately. IMPRESSION: No abnormality in carotid and vertebral vessels on contrast enhanced CT angiogram. ACT 112: Negative or not required by law. Electronically signed by: Issac Rankin M.D. 01/13/2022 6:51 PM Discharge Plan Visit Data Chief Complaint: Hypoglycemia Stated Complaint: POSSIBLE LOW BLOOD SUGAR. CONFUSION ED Provider: Rehan Sanches Discharge Problem: Acute alteration in mental status, Pancytopenia, Acute hepatic encephalopathy Patient Disposition: Being Evaluated by Hospitalist Forms Stand Alone Forms: My [facility] Prescriptions Prescriptions: No Action metformin 500 mg Tablet 500 mg PO AMPM RF: 0 carvedilol 12.5 mg Tablet 12.5 mg PO BID RF: 0 omeprazole 20 mg Capsule,Delayed Release(Dr/Ec) 20 mg PO QAM RF: 0 allopurinol 300 mg Tablet 300 mg PO QAM RF: 0 lisinopril 5 mg Tablet 5 mg PO QAM RF: 0 pioglitazone [Actos] 30 mg Tablet 30 mg PO QAM RF: 0 multivitamin Tablet 1 tab PO QAM RF: 0 ascorbic acid (vitamin C) [Vitamin C] 500 mg Tablet 500 mg PO QAM RF: 0 atorvastatin 20 mg tablet 20 mg PO DAILY RF: 0 meloxicam 15 mg tablet 15 mg PO DAILY RF: 0 glimepiride 1 mg tablet 1 mg PO DAILY RF: 0 furosemide 20 mg tablet 10 mg PO QAM RF: 0 lactulose 20 gram/30 mL solution 20 g PO TID PRN (Reason: Constipation) RF: 0 Referrals Referrals: Stanford Mays MD [Primary Care Provider] -
--- NOTE | 2022-01-13 18:26 | CT Scan Report ---
CT OF THE HEAD WITHOUT CONTRAST CLINICAL HISTORY: Stroke Like Symptoms. Speech difficulty. COMPARISON STUDY: Head CT April 21, 2021. CT DOSE: 1441.90 mGycm TECHNIQUE: Helical axial images of the head were obtained without IV contrast. Automated exposure con trol was utilized for the study. A dose lowering technique was utilized adhering to the principles o f ALARA. FINDINGS: No acute intracranial hemorrhage, midline shift or mass effect is present. The ventricular system is unremarkable. The basal cisterns are patent. No extra-axial collections are present. There are no findings to suggest acute dural sinus thrombosis or acute territorial infarct. No significant calvarial abnormalities are present. Visualized portions of the sinuses and mastoid air cells are danny ar. IMPRESSION: No acute intracranial findings. ACT 112: Negative or not required by law. Electronically signed by: Issac Rankin M.D. 01/13/2022 6:25 PM
[2022-01-13 18:27] LABS: INR 1.4 (0.9-1.1); Partial Thromboplastin Ratio 1.1; Partial Thromboplastin Time 30.5 Seconds (21.0-31.0); Prothrombin Time 14.2 Seconds (9.0-12.0)
[2022-01-13] MEDS ORDERED: OPTIRAY 320 125ml IV ONE (18:29)
[2022-01-13 18:34] LABS: Basophils # (auto) 0.05 K/uL (0-0.2); Basophils % (auto) 1.3 %; Eosinophils # (auto) 0.21 K/uL (0-0.5); Eosinophils % (auto) 5.5 %; Hematocrit (blood only) 33.9 % (42-52); Hemoglobin 11.6 g/dL (14.0-18.0); Lymphocytes % (auto) 15.8 %; Mean Corpuscular Hemoglobin 35.5 pg (25-34); Mean Corpuscular Hgb Conc 34.2 g/dL (32-36); Mean Corpuscular Volume 103.7 fL (80-100); Mean Platelet Volume 11.8 fL (7.4-10.4); Monocytes # (auto) 0.66 K/uL (0.11-0.59); Monocytes % (auto) 17.4 %; Neutrophils # (auto) 2.28 K/uL (1.4-6.5); Platelet Count 76 K/uL (130-400); Platelet Estimate Decreased (Normal); RBC Morphology Unremarkable; RDW Coefficient of Variation 15.1 % (11.5-14.5); RDW Standard Deviation 57.6 fL (36.4-46.3); Red Blood Count 3.27 M/uL (4.7-6.1)
[2022-01-13 18:42] LABS: Alanine Aminotransferase 34 U/L (7-52); Albumin Globulin Ratio 0.8 (0.9-2); Alkaline Phosphatase 86 U/L (34-104); Anion Gap 5 (3-11); Aspartate Aminotransferase 61 U/L (13-39); Bilirubin,Total 1.6 mg/dl (0.2-1.0); Blood Urea Nitrogen 15 mg/dl (6-23); Calcium 8.6 mg/dl (8.5-10.1); Carbon Dioxide 23 mmol/L (21-32); Chloride 109 mmol/L (98-107); Creatine Kinase 283 U/L (30-223); Creatinine Clr Calc Pharmacy 120.8 ml/min; Est GFR (African American) 103.9 ml/min; Est GFR (Non-African American) 89.6 ml/min; Globulin 3.9 gm/dl (2.5-4.0); Glucose 127 mg/dl (70-99(Fasting)); Magnesium 1.8 mg/dl (1.7-2.4); Potassium 3.8 mmol/L (3.5-5.1); Sodium 137 mmol/L (136-145); Total Protein 6.9 gm/dl (6.0-8.3)
[2022-01-13 18:43] LABS: Troponin I < 0.03 ng/ml (0-0.04)
--- NOTE | 2022-01-13 18:45 | CT Scan Report ---
CTA ANGIOGRAPHY OF THE HEAD CLINICAL HISTORY: Stroke Like Symptoms. Speech difficulty. COMPARISON STUDY: CTA of the head April 21, 2021. TECHNIQUE: Helical axial images of the head were obtained following uneventful intravenous administr ation of 117 cc of Optiray. Sagittal and coronal reconstructions were viewed as well as maximal inten sity projections on an independent 3-D workstation. Automated exposure control was utilized for the study. A dose lowering technique was utilized adhering to the principles of ALARA. CT DOSE: 1368.12 mGycm FINDINGS: Exam is mildly compromised by artifact. No acute intracranial hemorrhage, midline shift or mass effect is present. Ventricular system is normal. Basal cisterns are patent. There are no extra a xial collections. The bilateral M1, M2, A1 and A2 segments are patent. There is no central vessel occ lusion. No intracranial aneurysm is present. There are bilateral posterior communicating arteries. Po sterior circulation is intact. IMPRESSION: No central vessel occlusion. No intracranial aneurysm. ACT 112: Negative or not required by law. Electronically signed by: Issac Rankin M.D. 01/13/2022 6:36 PM
--- NOTE | 2022-01-13 18:53 | CT Scan Report ---
CT ANGIOGRAPHY OF THE NECK WITH CONTRAST CLINICAL HISTORY: Stroke Like Symptoms. Speech difficulty. COMPARISON STUDY: CTA of the neck April 21, 2021. Technique: CT angiography of the carotid and vertebral arteries was obtained using Optiray and 3D rec onstruction on an independent workstation. NASCET criteria was utilized. Automated exposure control was utilized for the study. A dose lowering technique was utilized adhering to the principles of ALA RA. Findings: This exam is mildly compromised by artifact although remains diagnostic. Lung apices are un remarkable. No acute cervical spine fracture is noted. Prominent mediastinal nodes are unchanged sinc e CTA of April 21, 2021. The bilateral common carotid, cervical internal carotid and vertebral arterie s are patent. No stenosis or dissection within these vessels is identified. There is no aneurysm with in the neck. CTA of the head will be reported separately. IMPRESSION: No abnormality in carotid and vertebral vessels on contrast enhanced CT angiogram. ACT 112: Negative or not required by law. Electronically signed by: Issac Rankin M.D. 01/13/2022 6:51 PM
--- NOTE | 2022-01-13 18:54 | XRay Report ---
XR chest 1V portable CLINICAL HISTORY: Stroke Like Symptoms COMPARISON STUDY: Chest radiograph April 21, 2021. FINDINGS: Lung volumes are normal. Lungs are clear. There is no pneumothorax or pleural effusion. Car diomegaly is unchanged. Mediastinal contours are normal. There is possible pulmonary vascular congest ion without evidence for pulmonary edema. IMPRESSION: Cardiomegaly. Pulmonary vascular congestion without overt pulmonary edema. ACT 112: Negative or not required by law. Electronically signed by: Issac Rankin M.D. 01/13/2022 6:53 PM
[2022-01-13 18:56] LABS: Appearance Urine Clear (Clear); Bilirubin Urine Negative (Negative); Blood Urine Negative (Negative); Color Urine Yellow; Glucose Urine UA Negative (Negative); Ketones Urine Negative (Negative); Leukocyte Esterase Urine Negative (Negative); Nitrite Urine Negative (Negative); Protein Urine Negative (Negative); Specific Gravity Urine 1.023 (1.000-1.030); Urobilinogen Urine Negative (Negative)
[2022-01-13] MEDS ORDERED: LACTULOSE SYRUP 30 GM/45 ML UDP PO STA (19:01)
[2022-01-13] MEDS: LACTULOSE SYRUP 30 GM/45 ML UDP PO SCH (21:19)
[2022-01-13] MEDS: INSULIN GLARGINE SOLOSTAR 100 UNITS/ML 3 ML PEN SC SCH (21:20)
--- NOTE | 2022-01-13 21:44 | History and Physical Report ---
DATE OF ADMISSION: 01/13/2022. CHIEF COMPLAINT: Confusion. HISTORY OF PRESENT ILLNESS: A 56-year-old male with past medical history significant for type 2 diabetes, hyperlipidemia, chronic gout, hypertension, morbid obesity, diverticulosis of colon, thrombocytopenia, was brought in because of confusion. The patient works in [employer] in [employer]. He was at workplace, was found to be somewhat confused and brought to the hospital. CTA of the head and neck was done, which was unremarkable. CT scan of the head was also unremarkable. The patient is alert and oriented, somewhat has tremors in the hands. The patient with a similar presentation in 03/2021. At that time, he was found to have hepatic encephalopathy and liver cirrhosis from [place]. Currently, he is on lactulose and follows with GI. Says having a couple of bowel movements every day. His ammonia level again found to be 86. He was given a dose of lactulose in the ER. Currently, resting comfortably and hemodynamically stable. Denies any headache, no dizziness, no blurred visions, no earache, no runny nose, no sore throat. No cough. Appetite is okay. Sometimes, he gets dry heaves. No chest pain, no shortness of breath, no abdominal pain. Normal bowel and bladder movements. Denies any blood in stools or black stools. Having some swelling in the legs. Ambulating okay. ALLERGIES: ASPIRIN. PAST MEDICAL HISTORY: As mentioned above. PAST SURGICAL HISTORY: Colonoscopy, EGDs. MEDICATIONS: The patient is on allopurinol 300 mg p.o. a.m., vitamin C 500 mg p.o. a.m., atorvastatin 20 mg p.o. daily, Coreg 12.5 mg p.o. b.i.d., Lasix 10 mg p.o. a.m., glimepiride 1 mg p.o. daily, lactulose 20 g p.o. t.i.d. p.r.n., lisinopril 5 mg p.o. a.m., meloxicam 15 mg p.o. daily, metformin 500 mg p.o. b.i.d., multivitamin 1 tablet p.o. a.m., omeprazole 20 mg p.o. a.m., Actos 30 mg p.o. a.m. FAMILY HISTORY: Significant for mother had colon cancer; brother has cancer, sleep apnea, irritable bowel syndrome; mother has hypertension; brother has diabetes. SOCIAL HISTORY: Lives with his mother and brother. He chews tobacco. No alcohol, no drug use. REVIEW OF SYSTEMS: As per HPI. Rest of the review of systems is negative. PHYSICAL EXAMINATION: GENERAL: The patient is obese, not in acute distress. VITAL SIGNS: Temperature 36.8, pulse 76, respiratory rate 14, blood pressure 125/72, oxygen 98% on room air. HEENT: Pupils equal, round and reactive to light. Oral mucosa moist. NECK: No JVD, no neck masses. CARDIOVASCULAR: S1 and S2 heard, regular rate and rhythm. Systolic murmur heard. RESPIRATORY SYSTEM: Normal AP diameter. No accessory muscle use. No wheezing, no crackles. ABDOMEN: Soft, bowel sounds present, nontender, no distention. CENTRAL NERVOUS SYSTEM: Alert and oriented x3. Recent and remote memory intact. Speech is clear. No facial droop. Has some tremors in the hands. Obeys simple commands. Insight is okay. Moves extremities. EXTREMITIES: Bilateral lower extremity edema present, no erythema seen. LABORATORY DATA: WBC 3.8, hemoglobin 11.6, hematocrit 33.9, platelets 76. PT 14.2, INR 1.4, APTT 30.5. Sodium 137, potassium 3.8, chloride 109, bicarbonate 23, BUN 15, creatinine 0.9, serum glucose 127, calcium 8.6, magnesium 1.8, total bilirubin 1.6, AST 61, ALT 34, alkaline phosphatase 86, ammonia 86. Total creatine kinase 283. Troponin I less than 0.03. Urinalysis negative. SARS-CoV-2 rapid test negative. IMAGING: CTA of the head and neck: Unremarkable. CT of the head: Unremarkable. Chest x-ray: Cardiomegaly, pulmonary vascular congestion without pulmonary edema. EKG: Normal sinus rhythm at a rate of 76, no significant change was found. ASSESSMENT AND PLAN: This is a 56-year-old male, presents with some confusion and found to have hepatic encephalopathy. 1. Hepatic encephalopathy, mild confusion: Seems to be okay now. Ammonia level is 86. Similar presentation in 03/2021, at that time was found to have possible nonalcoholic steatohepatitis cirrhosis. Follows with gastrointestinal. We will continue with lactulose 30 g p.o. q.i.d. Follow repeat ammonia level in the a.m. Consult gastrointestinal in the a.m. Will follow abdominal US.Closely monitor in the med-telemetry. 2. Lower extremity edema: Probably from the cirrhosis. We will continue Lasix for now. If his ammonia does not improve, we will hold the Lasix. 3. History of hypertension: Continue Coreg. We will monitor the blood pressure. 4. Hyperlipidemia: Continue statin. 5. Gout: Continue allopurinol. 6. Diabetes: Hold metformin, Actos, and glimepiride. Place him on Lantus insulin sliding scale. Follow blood sugars, follow HbA1c levels. 7. Morbid obesity: Needs counseling. 8. Pancytopenia: Most likely secondary to liver disease. Follow the repeat laboratories. . 9. Deep venous thrombosis prophylaxis: Sequential compression devices for now. DISPOSITION: Admit to med-tele. PT/OT prior to discharge. Social service to help with discharge planning. Level 1, full code. Job ID: [id number] MTDD
[2022-01-13] MEDS ORDERED: ONDANSETRON INJ 2 MG/ML 2 ML VIAL IV PRN (22:42)
[2022-01-13] MEDS ORDERED: NITROGLYCERIN SL 0.4 MG/TAB TAB SL PRN (22:42)
[2022-01-13] MEDS ORDERED: CARBOHYDRATES FOR HYPOGLYCEMIA PO PRN (23:00)
[2022-01-13] MEDS ORDERED: GLUCAGON FOR INJ 1 MG VIAL IM PRN (23:00)
[2022-01-13] MEDS ORDERED: DEXTROSE 50% 50 ML SYRINGE IV PRN (23:00)
[2022-01-13] MEDS ORDERED: GLUCOSE 40% GEL 15 GM TUBE PO PRN (23:00)
[2022-01-13] MEDS ORDERED: GLUCOSE 10 TABS/TUBE PO PRN (23:00)
[2022-01-13] MEDS: INSULIN ASPART PER UNIT SC SCH (23:29)
[2022-01-14] MEDS: carvediloL 12.5 MG TAB PO SCH ×2 (00:08→08:18)
[2022-01-14 05:34] LABS: Hematocrit (blood only) 31.5 % (42-52); Hemoglobin 10.7 g/dL (14.0-18.0); Mean Corpuscular Hemoglobin 35.1 pg (25-34); Mean Corpuscular Volume 103.3 fL (80-100); RDW Coefficient of Variation 15.4 % (11.5-14.5); RDW Standard Deviation 58.1 fL (36.4-46.3); Red Blood Count 3.05 M/uL (4.7-6.1); White Blood Count 3.69 K/uL (4.8-10.8)
[2022-01-14 05:54] LABS: Albumin Level 2.6 gm/dl (3.4-5.0); BUN Creatinine Ratio 15.3 (10-20); Bilirubin Direct 0.3 mg/dl (0-0.2); Bilirubin,Total 1.6 mg/dl (0.2-1.0); Calcium 8.4 mg/dl (8.5-10.1); Creatinine Clr Calc Pharmacy 136.6 ml/min; Est GFR (African American) 112.1 ml/min; Est GFR (Non-African American) 96.7 ml/min; Magnesium 1.7 mg/dl (1.7-2.4); Potassium 3.5 mmol/L (3.5-5.1)
[2022-01-14 05:56] LABS: Mean Platelet Volume 11.6 fL (7.4-10.4); Platelet Count 68 K/uL (130-400)
[2022-01-14 06:14] LABS: Basophils % (auto) 2.7 %; Eosinophils # (auto) 0.19 K/uL (0-0.5); Eosinophils % (auto) 5.1 %; Lymphocytes # (auto) 0.86 K/uL (1.2-3.4); Lymphocytes % (auto) 23.3 %; Monocytes # (auto) 0.62 K/uL (0.11-0.59); Monocytes % (auto) 16.8 %; Neutrophils # (auto) 1.92 K/uL (1.4-6.5); Neutrophils % (auto) 52.1 %
--- NOTE | 2022-01-14 07:28 | Ultrasound Report ---
US abdomen ltd ascites CLINICAL HISTORY: ascites TECHNIQUE: Real-time grayscale sonographic images of the abdomen were obtained. Comparison: None available at the time of this dictation. FINDINGS/IMPRESSION: Trace ascites is seen in the right lower quadrant and left lower quadrant. ACT 112: Negative or not required by law. Electronically signed by: Spike Barnard M.D. 01/14/2022 7:26 AM
[2022-01-14] MEDS: INSULIN GLARGINE SOLOSTAR 100 UNITS/ML 3 ML PEN SC SCH (08:21)
[2022-01-14] MEDS: LACTULOSE SYRUP 30 GM/45 ML UDP PO SCH ×2 (08:23→12:57)
[2022-01-14] MEDS: INSULIN ASPART PER UNIT SC SCH ×2 (08:26→13:00)
--- NOTE | 2022-01-14 08:47 | Gastrointestinal Consultation ---
Date of Consultation January 14, 2022 Assessment & Plan (1) Acute hepatic encephalopathy: 56 year old male w/ cirrhosis, admitted w/ confusion after missing a few doses of lactulose. He notes he is unable to tolerate this medication while he is working Suspected hepatic encephalopathy, now resolved, likely secondary to missed dose of lactulose * Continue Lactulose 20 g three times a day titrated to BMs 2-3 times daily * Start Xifaxan 550 BID, please send home with this as well * HCC screening with ABD US and AFP every 6 months * Remain drug and ETOH free as doing * Less than 2g of tylenol if using * Low NA diet, less than 2 grams * Continue with outpatient care plan per CONCHIS Chandler Recall GI as needed. Thank you for allowing us to participate in the care of this patient. Please call with any acute changes, questions or concerns. Please see addendum below with additional recommendation from my supervising physician. Supervising Physician Co-Signing Physician Notes I saw and evaluated the patient. He was admitted with worsening hepatic encephalopathy. The patient does have a history of liver disease as result of nonalcoholic steatohepatitis. He does note that he had been on lactulose as an outpatient but has difficulty with taking the medication due to diarrhea. Started on rifaximin and notes that his symptoms are significantly improved today. Examination No obvious distress, no abdominal tenderness Impression: Patient admitted with mild hepatic encephalopathy responding to medications appropriately. Given the patient's problems with taking lactulose as an outpatient would recommend a transition to rifaximin 550 mg twice daily. The patient can use lactulose on an as-needed basis. Any questions or concerns GI to sign off History of Present Illness Reason for Consultation: hepatic encephalopathy Requesting Physician: Todd Attending Physician: Suzie Brooks MD History of Present Illness 56 year old male with history of cirrhosis, type 2 diabetes, hyperlipidemia, chronic idiopathic gout, primary hypertension, obesity, diverticulosis of colon, family history of colon cancer, presents with confusion. Pt was seen and evaluated, chart reviewed. Notes that he had missed a few doses of lactulose as he has limited restroom access at work and the medication causes looses, frequent stools. He is trying to find the best dose of the medication to allow tolerable stools. Today, he is awake, alert and oriented. Tolerating PO well. No nuasea,vomiting. No black or bloody stools. No fever, chills, PC, SOB. Allergies Allergy/AdvReac Type Severity Reaction Status Date / Time aspirin Allergy Intermediate NOSE Verified 01/13/22 18:34 BLEEDS--IF TAKES REGULARLY Home Medications Medication Instructions Recorded Confirmed Type allopurinol 300 mg tablet 300 mg PO QAM 06/03/19 01/13/22 History ascorbic acid (vitamin C) 500 mg 500 mg PO QAM 06/03/19 01/13/22 History tablet (Vitamin C) carvedilol 12.5 mg tablet 12.5 mg PO BID 06/03/19 01/13/22 History lisinopril 5 mg tablet 5 mg PO QAM 06/03/19 01/13/22 History metformin 500 mg tablet 500 mg PO AMPM 06/03/19 01/13/22 History multivitamin 1 tab PO QAM 06/03/19 01/13/22 History omeprazole 20 mg capsule,delayed 20 mg PO QAM 06/03/19 01/13/22 History release pioglitazone 30 mg tablet (Actos) 30 mg PO QAM 06/03/19 01/13/22 History atorvastatin 20 mg tablet 20 mg PO DAILY 04/21/21 01/13/22 History furosemide 20 mg tablet 10 mg PO QAM 01/13/22 01/13/22 History glimepiride 1 mg tablet 1 mg PO DAILY 01/13/22 01/13/22 History lactulose 20 gram/30 mL oral 20 g PO TID PRN 01/13/22 01/13/22 History solution meloxicam 15 mg tablet 15 mg PO DAILY 01/13/22 01/13/22 History Patient History Medical History (Updated 01/13/22 @ 21:36 by Rehan Sanches DO) Cardiac murmur HX Diabetes mellitus, type 2 Gout Hyperlipidemia Hypertension Surgical History History of colonoscopy Family History Mother History of colonoscopy Brother Family history of diabetes mellitus Brother Family history of diabetes mellitus Grandmother (Paternal) Family history of diabetes mellitus Social History Smoking Status: Former smoker Second Hand Exposure: No; Do You Dip or Chew Tobacco: No; Hx Alcohol Use: No Hx Substance Use: No Preferred Language: Yi Communication Ability: Effective Auto Body Man Required: No Beliefs That Will Affect Care: None marital status: Single Current Living Situation: Family Current Living Situation Comment: Mother, brother Other Information That Helps Us Care for You: No Feels Safe at Home: Yes Safety Concerns: Feels Safe At This Time Assistive Devices: None Review of Systems Review of Systems: All systems reviewed & are unremarkable except as noted in HPI & below Physical Exam Constitutional: WD/WN, vitals as above Neck: trachea midline, no thyromegaly Respiratory: normal respiratory effort, lungs clear to auscultation Gastrointestinal (Abdomen): normal bowel sounds, soft, nontender, no hepatosplenomegaly Skin: no rashes, warm and dry Results & Data ([facility]) Vital Signs (Past 12 Hours) Vital Signs Temp Pulse Pulse Resp BP BP Pulse Ox 01/14/22 08:10 36.7 C 68 18 112/68 97 01/14/22 07:21 76 01/13/22 23:01 36.6 C 68 17 122/71 99 01/13/22 23:00 61 01/13/22 21:32 66 22 130/71 98 01/13/22 21:00 67 19 99/73 L 97 Laboratory Results 01/14/22 01/14/22 01/14/22 Range/Units 07:19 05:26 05:20 WBC 3.69 L (4.8-10.8) K/uL RBC 3.05 L (4.7-6.1) M/uL Hgb 10.7 L (14.0-18.0) g/dL Hct 31.5 L (42-52) % MCV 103.3 H (80-100) fL MCH 35.1 H (25-34) pg MCHC 34.0 (32-36) g/dL RDW Std Deviation 58.1 H (36.4-46.3) fL RDW Coeff of [place] 15.4 H (11.5-14.5) % Plt Count 68 L (130-400) K/uL MPV 11.6 H (7.4-10.4) fL Immature Gran % (Auto) 0.0 % Neut % (Auto) 52.1 % Lymph % (Auto) 23.3 % [place] % (Auto) 16.8 % Eos % (Auto) 5.1 % Baso % (Auto) 2.7 % Neut # (Auto) 1.92 (1.4-6.5) K/uL Lymph # (Auto) 0.86 L (1.2-3.4) K/uL [place] # (Auto) 0.62 H (0.11-0.59) K/uL Eos # (Auto) 0.19 (0-0.5) K/uL Baso # (Auto) 0.10 (0-0.2) K/uL Immature Gran # (Auto) 0.00 (0.00-0.02) K/uL Platelet Estimate (Normal) RBC Morphology PT (9.0-12.0) Seconds INR (0.9-1.1) APTT (21.0-31.0) Seconds PTT Ratio Sodium (136-145) mmol/L Potassium (3.5-5.1) mmol/L Chloride (98-107) mmol/L Carbon Dioxide (21-32) mmol/L Anion Gap (3-11) BUN (6-23) mg/dl Creatinine (0.6-1.4) mg/dl Est Cr Clr Drug Dosing ml/min Est GFR ( Amer) ml/min Est GFR (Non-Af Amer) ml/min BUN/Creatinine Ratio (10-20) Glucose (70-99(Fasting)) mg/dl POC Glucose 73 (70-99) mg/dl Calcium (8.5-10.1) mg/dl Magnesium (1.7-2.4) mg/dl Total Bilirubin (0.2-1.0) mg/dl Direct Bilirubin (0-0.2) mg/dl AST (13-39) U/L ALT (7-52) U/L Alkaline Phosphatase (34-104) U/L Ammonia 64.0 (18-72) umol/L Total Creatine Kinase (30-223) U/L Troponin I (0-0.04) ng/ml Total Protein (6.0-8.3) gm/dl Albumin (3.4-5.0) gm/dl Globulin (2.5-4.0) gm/dl Albumin/Globulin Ratio (0.9-2) Urine Color Urine Appearance (Clear) Urine pH (4.5-7.5) Ur Specific [place] (1.000-1.030) Urine Protein (Negative) Urine Glucose (UA) (Negative) Urine Ketones (Negative) Urine Blood (Negative) Urine Nitrite (Negative) Urine Bilirubin (Negative) Urine Urobilinogen (Negative) Ur Leukocyte Esterase (Negative) SARS-CoV-2, RNA, NAAT (NEGATIVE) 01/14/22 01/13/22 01/13/22 Range/Units 05:20 18:45 18:33 WBC (4.8-10.8) K/uL RBC (4.7-6.1) M/uL Hgb (14.0-18.0) g/dL Hct (42-52) % MCV (80-100) fL MCH (25-34) pg MCHC (32-36) g/dL RDW Std Deviation (36.4-46.3) fL RDW Coeff of [place] (11.5-14.5) % Plt Count (130-400) K/uL MPV (7.4-10.4) fL Immature Gran % (Auto) % Neut % (Auto) % Lymph % (Auto) % [place] % (Auto) % Eos % (Auto) % Baso % (Auto) % Neut # (Auto) (1.4-6.5) K/uL Lymph # (Auto) (1.2-3.4) K/uL [place] # (Auto) (0.11-0.59) K/uL Eos # (Auto) (0-0.5) K/uL Baso # (Auto) (0-0.2) K/uL Immature Gran # (Auto) (0.00-0.02) K/uL Platelet Estimate (Normal) RBC Morphology PT (9.0-12.0) Seconds INR (0.9-1.1) APTT (21.0-31.0) Seconds PTT Ratio Sodium 140 (136-145) mmol/L Potassium 3.5 (3.5-5.1) mmol/L Chloride 114 H (98-107) mmol/L Carbon Dioxide 22 (21-32) mmol/L Anion Gap 4 (3-11) BUN 13 (6-23) mg/dl Creatinine 0.85 (0.6-1.4) mg/dl Est Cr Clr Drug Dosing 136.6 ml/min Est GFR ( Amer) 112.1 ml/min Est GFR (Non-Af Amer) 96.7 ml/min BUN/Creatinine Ratio 15.3 (10-20) Glucose 74 (70-99(Fasting)) mg/dl POC Glucose (70-99) mg/dl Calcium 8.4 L (8.5-10.1) mg/dl Magnesium 1.7 (1.7-2.4) mg/dl Total Bilirubin 1.6 H (0.2-1.0) mg/dl Direct Bilirubin 0.3 H (0-0.2) mg/dl AST 53 H (13-39) U/L ALT 29 (7-52) U/L Alkaline Phosphatase 70 (34-104) U/L Ammonia 86.0 H (18-72) umol/L Total Creatine Kinase (30-223) U/L Troponin I (0-0.04) ng/ml Total Protein 6.0 (6.0-8.3) gm/dl Albumin 2.6 L (3.4-5.0) gm/dl Globulin (2.5-4.0) gm/dl Albumin/Globulin Ratio (0.9-2) Urine Color Yellow Urine Appearance Clear (Clear) Urine pH 7.0 (4.5-7.5) Ur Specific [place] 1.023 (1.000-1.030) Urine Protein Negative (Negative) Urine Glucose (UA) Negative (Negative) Urine Ketones Negative (Negative) Urine Blood Negative (Negative) Urine Nitrite Negative (Negative) Urine Bilirubin Negative (Negative) Urine Urobilinogen Negative (Negative) Ur Leukocyte Esterase Negative (Negative) SARS-CoV-2, RNA, NAAT (NEGATIVE) 01/13/22 01/13/22 01/13/22 Range/Units 18:32 18:09 18:09 WBC (4.8-10.8) K/uL RBC (4.7-6.1) M/uL Hgb (14.0-18.0) g/dL Hct (42-52) % MCV (80-100) fL MCH (25-34) pg MCHC (32-36) g/dL RDW Std Deviation (36.4-46.3) fL RDW Coeff of [place] (11.5-14.5) % Plt Count (130-400) K/uL MPV (7.4-10.4) fL Immature Gran % (Auto) % Neut % (Auto) % Lymph % (Auto) % [place] % (Auto) % Eos % (Auto) % Baso % (Auto) % Neut # (Auto) (1.4-6.5) K/uL Lymph # (Auto) (1.2-3.4) K/uL [place] # (Auto) (0.11-0.59) K/uL Eos # (Auto) (0-0.5) K/uL Baso # (Auto) (0-0.2) K/uL Immature Gran # (Auto) (0.00-0.02) K/uL Platelet Estimate (Normal) RBC Morphology PT 14.2 H (9.0-12.0) Seconds INR 1.4 H (0.9-1.1) APTT 30.5 (21.0-31.0) Seconds PTT Ratio 1.1 Sodium 137 (136-145) mmol/L Potassium 3.8 (3.5-5.1) mmol/L Chloride 109 H (98-107) mmol/L Carbon Dioxide 23 (21-32) mmol/L Anion Gap 5 (3-11) BUN 15 (6-23) mg/dl Creatinine 0.94 (0.6-1.4) mg/dl Est Cr Clr Drug Dosing 120.8 ml/min Est GFR ( Amer) 103.9 ml/min Est GFR (Non-Af Amer) 89.6 ml/min BUN/Creatinine Ratio 16.0 (10-20) Glucose 127 H (70-99(Fasting)) mg/dl POC Glucose (70-99) mg/dl Calcium 8.6 (8.5-10.1) mg/dl Magnesium 1.8 (1.7-2.4) mg/dl Total Bilirubin 1.6 H (0.2-1.0) mg/dl Direct Bilirubin (0-0.2) mg/dl AST 61 H (13-39) U/L ALT 34 (7-52) U/L Alkaline Phosphatase 86 (34-104) U/L Ammonia (18-72) umol/L Total Creatine Kinase 283 H (30-223) U/L Troponin I < 0.03 (0-0.04) ng/ml Total Protein 6.9 (6.0-8.3) gm/dl Albumin 3.0 L (3.4-5.0) gm/dl Globulin 3.9 (2.5-4.0) gm/dl Albumin/Globulin Ratio 0.8 L (0.9-2) Urine Color Urine Appearance (Clear) Urine pH (4.5-7.5) Ur Specific [place] (1.000-1.030) Urine Protein (Negative) Urine Glucose (UA) (Negative) Urine Ketones (Negative) Urine Blood (Negative) Urine Nitrite (Negative) Urine Bilirubin (Negative) Urine Urobilinogen (Negative) Ur Leukocyte Esterase (Negative) SARS-CoV-2, RNA, NAAT NEGATIVE (NEGATIVE) 01/13/22 01/13/22 Range/Units 18:09 17:39 WBC 3.80 L (4.8-10.8) K/uL RBC 3.27 L (4.7-6.1) M/uL Hgb 11.6 L (14.0-18.0) g/dL Hct 33.9 L (42-52) % MCV 103.7 H (80-100) fL MCH 35.5 H (25-34) pg MCHC 34.2 (32-36) g/dL RDW Std Deviation 57.6 H (36.4-46.3) fL RDW Coeff of [place] 15.1 H (11.5-14.5) % Plt Count 76 L (130-400) K/uL MPV 11.8 H (7.4-10.4) fL Immature Gran % (Auto) 0.0 % Neut % (Auto) 60.0 % Lymph % (Auto) 15.8 % [place] % (Auto) 17.4 % Eos % (Auto) 5.5 % Baso % (Auto) 1.3 % Neut # (Auto) 2.28 (1.4-6.5) K/uL Lymph # (Auto) 0.60 L (1.2-3.4) K/uL [place] # (Auto) 0.66 H (0.11-0.59) K/uL Eos # (Auto) 0.21 (0-0.5) K/uL Baso # (Auto) 0.05 (0-0.2) K/uL Immature Gran # (Auto) 0.00 (0.00-0.02) K/uL Platelet Estimate Decreased L (Normal) RBC Morphology Unremarkable PT (9.0-12.0) Seconds INR (0.9-1.1) APTT (21.0-31.0) Seconds PTT Ratio Sodium (136-145) mmol/L Potassium (3.5-5.1) mmol/L Chloride (98-107) mmol/L Carbon Dioxide (21-32) mmol/L Anion Gap (3-11) BUN (6-23) mg/dl Creatinine (0.6-1.4) mg/dl Est Cr Clr Drug Dosing ml/min Est GFR ( Amer) ml/min Est GFR (Non-Af Amer) ml/min BUN/Creatinine Ratio (10-20) Glucose (70-99(Fasting)) mg/dl POC Glucose 126 H (70-99) mg/dl Calcium (8.5-10.1) mg/dl Magnesium (1.7-2.4) mg/dl Total Bilirubin (0.2-1.0) mg/dl Direct Bilirubin (0-0.2) mg/dl AST (13-39) U/L ALT (7-52) U/L Alkaline Phosphatase (34-104) U/L Ammonia (18-72) umol/L Total Creatine Kinase (30-223) U/L Troponin I (0-0.04) ng/ml Total Protein (6.0-8.3) gm/dl Albumin (3.4-5.0) gm/dl Globulin (2.5-4.0) gm/dl Albumin/Globulin Ratio (0.9-2) Urine Color Urine Appearance (Clear) Urine pH (4.5-7.5) Ur Specific [place] (1.000-1.030) Urine Protein (Negative) Urine Glucose (UA) (Negative) Urine Ketones (Negative) Urine Blood (Negative) Urine Nitrite (Negative) Urine Bilirubin (Negative) Urine Urobilinogen (Negative) Ur Leukocyte Esterase (Negative) SARS-CoV-2, RNA, NAAT (NEGATIVE)
[2022-01-14] MEDS ORDERED: PANTOprazole 40 MG TAB PO SCH (09:00)
[2022-01-14] MEDS ORDERED: FUROSEMIDE 20 MG TAB PO SCH (09:00)
[2022-01-14] MEDS ORDERED: ASCORBIC ACID 500 MG TAB PO SCH (09:00)
[2022-01-14] MEDS ORDERED: lisinopril 5 MG TAB PO SCH (09:00)
[2022-01-14] MEDS ORDERED: allopurinoL 300 MG TAB PO SCH (09:00)
[2022-01-14] MEDS ORDERED: ATORVASTATIN 20 MG TAB PO SCH (09:00)
[2022-01-14] MEDS ORDERED: MULTIVITAMIN TAB PO SCH (09:00)
[2022-01-14] MEDS ORDERED: rifAXIMin 550 MG TABLET PO SCH (09:15)
[2022-01-14] MEDS ORDERED: ACETAMINOPHEN 325 MG TAB PO PRN (11:58)
--- NOTE | 2022-01-14 14:42 | Discharge Summary ---
Date of Service January 14, 2022 Admission HPI Per Admitting Provider A 56-year-old male with past medical history significant for type 2 diabetes, hyperlipidemia, chronic gout, hypertension, morbid obesity, diverticulosis of colon, thrombocytopenia, was brought in because of confusion. The patient works in [employer] in [employer]. He was at workplace, was found to be somewhat confused and brought to the hospital. CTA of the head and neck was done, which was unremarkable. CT scan of the head was also unremarkable. The patient is alert and oriented, somewhat has tremors in the hands. The patient with a similar presentation in 03/2021. At that time, he was found to have hepatic encephalopathy and liver cirrhosis from [facility]. Currently, he is on lactulose and follows with GI. Says having a couple of bowel movements every day. His ammonia level again found to be 86. He was given a dose of lactulose in the ER. Currently, resting comfortably and hemodynamically stable. Denies any headache, no dizziness, no blurred visions, no earache, no runny nose, no sore throat. No cough. Appetite is okay. Sometimes, he gets dry heaves. No chest pain, no shortness of breath, no abdominal pain. Normal bowel and bladder movements. Denies any blood in stools or black stools. Having some swelling in the legs. Ambulating okay. Admission Exam Per Admitting Provider GENERAL: The patient is obese, not in acute distress. VITAL SIGNS: Temperature 36.8, pulse 76, respiratory rate 14, blood pressure 125/72, oxygen 98% on room air. HEENT: Pupils equal, round and reactive to light. Oral mucosa moist. NECK: No JVD, no neck masses. CARDIOVASCULAR: S1 and S2 heard, regular rate and rhythm. Systolic murmur heard. RESPIRATORY SYSTEM: Normal AP diameter. No accessory muscle use. No wheezing, no crackles. ABDOMEN: Soft, bowel sounds present, nontender, no distention. CENTRAL NERVOUS SYSTEM: Alert and oriented x3. Recent and remote memory intact. Speech is clear. No facial droop. Has some tremors in the hands. Obeys simple commands. Insight is okay. Moves extremities. EXTREMITIES: Bilateral lower extremity edema present, no erythema seen. Principal Diagnosis Acute hepatic encephalopathy Discharge Exam Constitutional + well hydrated and + obese; no acute distress Eyes PERRL, conjunctivae normal, anicteric sclerae ENMT external ear and nose normal, oropharynx normal Respiratory normal respiratory effort, lungs clear to auscultation Cardiovascular Rate/Rhythm: regular rate and regular rhythm S1 S2 Gastrointestinal (Abdomen) normal bowel sounds, soft, nontender, no hepatosplenomegaly Musculoskeletal no cyanosis or clubbing, extremities motor strength 5/5 Trace pedal edema Neurologic PERRL, EOMI, accommodation nl, no face palsy, no dysarthria No asterixis or tremors Psychiatric A+Ox3, euthymic affect Discharge Data Allergies Allergy/AdvReac Type Severity Reaction Status Date / Time aspirin Allergy Intermediate NOSE Verified 01/13/22 18:34 BLEEDS--IF TAKES REGULARLY Consultations 01/13/22 19:18 ED Decision to Admit Stat 01/14/22 08:00 Consult Gastroenterology Routine Ordered Studies 01/13/22 18:00 CT angio head w con Stat Exam is mildly compromised by artifact. No acute intracranial hemorrhage, midline shift or mass effect is present. Ventricular system is normal. Basal cisterns are patent. There are no extra axial collections. The bilateral M1, M2, A1 and A2 segments are patent. There is no central vessel occlusion. No intracranial aneurysm is present. There are bilateral posterior communicating ar teries. Posterior circulation is intact. IMPRESSION: No central vessel occlusion. No intracranial aneurysm. CT angio neck with con Stat This exam is mildly compromised by artifact although remains diagnostic. Lung apices are unremarkable. No acute cervical spine fracture is noted. Prominent mediastinal nodes are unchanged since CTA of April 21, 2021. The bilateral common carotid, cervical internal carotid and vertebral arteries are patent. No stenosis or dissection within these vessels is identified. There is no aneurysm within the neck. CTA of the head will be reported separately. IMPRESSION: No abnormality in carotid and vertebral vessels on contrast enhanced CT angiogram. CT head/brain wo con Stat Exam is mildly compromised by artifact. No acute intracranial hemorrhage, midline shift or mass effect is present. Ventricular system is normal. Basal cisterns are patent. There are no extra axial collections. The bilateral M1, M2, A1 and A2 segments are patent. There is no central vessel occlusion. No intracranial aneurysm is present. There are bilateral posterior communicating arteries. Posterior circulation is intact. IMPRESSION: No central vessel occlusion. No intracranial aneurysm. 01/13/22 22:42 US abdomen ltd ascites Routine FINDINGS/IMPRESSION: Trace ascites is seen in the right lower quadrant and left lower quadrant. Hospital Course (1) Acute alteration in mental status: (2) Acute hepatic encephalopathy: Ammonia level was 86. CT head did not show any acute abnormality. Patient was started on lactulose. Mental status improved and patient returned to baseline Discussed with patient today. He reported that he has been taking his lactulose once a day and have not been on bowel movement daily. Educated patient to take lactulose as prescribed to ensure 3 bowel movements per day. Patient advised to hold subsequent dose once patient gets up to 3 good bowel movements in a day. Patient was evaluated by gastroenterology and started on rifaximin. Patient counseled on need for lifestyle modification including weight loss. Patient continue home medications for diabetes and hypertension Advised to follow-up with gastroenterology and primary care doctor Total Time Total Time Spent Total Time Spent (In Minutes): 40 Total Time Includes: Examination of the Patient, Discharge Planning, Medication Reconciliation and Communication With Other Providers Discharge Plan Discharge Items Patient Disposition: Home - Self-Care Reason For Visit: CONFUSION Discharge Diagnosis: Acute hepatic encephalopathy Activity: Resume your previous activity Non-emergency contact: Primary Care Provider and Panel Installer Call non-emergency contact if: you have any medication questions Follow-up/Referrals: Stanford Mays MD [Primary Care Provider] - Diet: Carb Consistent or DM2 and Heart Healthy Addtl Attending Provider Instructions: Mr Spencer. You were brought to the hospital due to confusion. You were evaluated and managed for hepatic encephalopathy. Your symptoms resolved. It is very important that you take your lactulose to ensure 3 bowel movements per day. You were started on rifaximin. Please follow up with Gastroenterology in the office and your Primary Doctor It was a pleasure taking care of you. Pending Studies at Discharge: No Stand-Alone Forms: My [email or web address], Smoking Cessation Medications and DC Order Prescriptions: New Xifaxan 550 mg Tablet 550 mg PO BID 30 Days Qty: 60 RF: 0 Continued metformin 500 mg Tablet 500 mg PO AMPM RF: 0 carvedilol 12.5 mg Tablet 12.5 mg PO BID RF: 0 omeprazole 20 mg Capsule,Delayed Release(Dr/Ec) 20 mg PO QAM RF: 0 allopurinol 300 mg Tablet 300 mg PO QAM RF: 0 lisinopril 5 mg Tablet 5 mg PO QAM RF: 0 pioglitazone [Actos] 30 mg Tablet 30 mg PO QAM RF: 0 multivitamin Tablet 1 tab PO QAM RF: 0 ascorbic acid (vitamin C) [Vitamin C] 500 mg Tablet 500 mg PO QAM RF: 0 atorvastatin 20 mg tablet 20 mg PO DAILY RF: 0 glimepiride 1 mg tablet 1 mg PO DAILY RF: 0 furosemide 20 mg tablet 10 mg PO QAM RF: 0 lactulose 20 gram/30 mL solution 20 g PO TID Qty: 2880 RF: 0 Changed meloxicam 15 mg tablet 15 mg PO DAILY PRN (Reason: pain) Qty: 7 RF: 0 Discharge Orders: Discharge Order (Routine); Ordered 01/14/22 Ordered By: Suzie Brooks Admission Data Admit Date/Time: 01/13/22 20:17 Attending Provider: Suzie Brooks I. Admit Provider: Luciano Hernandez Primary Care Provider: Stanford Mays Other Providers: Luciano Hernandez ; Kathrine Hatfield Other Interventions: Discharge Summary Assessment (RN) Last Done: 01/14/22 14:51
--- NOTE | 2022-01-14 21:58 | Electrocardiogram Report ---
Test Reason : Blood Pressure : / mmHG Vent. Rate : 076 BPM Atrial Rate : 076 BPM P-R Int : 156 ms QRS Dur : 096 ms QT Int : 428 ms P-R-T Axes : 068 021 049 degrees QTc Int : 481 ms Normal sinus rhythm Prolonged QT Abnormal ECG When compared with ECG of 21-APR-2021 20:53, No significant change was found Confirmed by Chucho Wellington ([id number]) on 01/14/2022 9:58:25 PM Referred By: REFERRED SELF Confirmed By:Chucho Wellington
--- NOTE | 2022-01-14 22:22 | Electrocardiogram Report ---
Test Reason : Blood Pressure : / mmHG Vent. Rate : 070 BPM Atrial Rate : 070 BPM P-R Int : 144 ms QRS Dur : 100 ms QT Int : 448 ms P-R-T Axes : 041 042 030 degrees QTc Int : 483 ms Normal sinus rhythm Prolonged QT Abnormal ECG When compared with ECG of 13-JAN-2022 18:12, No significant change was found Confirmed by Chucho Wellington ([id number]) on 01/14/2022 10:21:38 PM Referred By: REFERRED SELF Confirmed By:Chucho Wellington
== END 2022-01-14 16:06 | disposition home or self-care (01) | DRG 442 ==
LOC: ED 17:28 → 2S 20:17

== ENCOUNTER 2022-03-28 13:14 | Inpatient (IN) ==
[2022-03-28 15:35] LABS: Base Excess VBG -0.9 mEq/L; Oxygen Saturation VBG 67.9 %; pH VBG 7.4 (7.36-7.41)
--- NOTE | 2022-03-28 15:43 | XRay Report ---
XR chest 1V portable CLINICAL HISTORY: ams TECHNIQUE: Single frontal radiograph of the chest was obtained. Comparison: Comparison is made to chest radiograph 01/13/2022 FINDINGS: No lines and tubes are seen. Cardiomegaly is noted. The lungs are clear. No evidence of pleural effus ion or pneumothorax. IMPRESSION: No acute chest disease. ACT 112: Negative or not required by law. Electronically signed by: Spike Barnard M.D. 03/28/2022 3:42 PM
[2022-03-28 15:47] LABS: Basophils # (auto) 0.04 K/uL (0-0.2); Eosinophils # (auto) 0.15 K/uL (0-0.5); Eosinophils % (auto) 3.7 %; Hematocrit (blood only) 36.3 % (42-52); Hemoglobin 12.7 g/dL (14.0-18.0); Immature Granulocytes # (auto) 0.01 K/uL (0.00-0.02); Immature Granulocytes % (auto) 0.2 %; Lymphocytes # (auto) 0.53 K/uL (1.2-3.4); Lymphocytes % (auto) 13.1 %; Mean Corpuscular Hemoglobin 35.5 pg (25-34); Mean Corpuscular Volume 101.4 fL (80-100); Mean Platelet Volume 12.2 fL (7.4-10.4); Monocytes # (auto) 0.59 K/uL (0.11-0.59); Monocytes % (auto) 14.6 %; Neutrophils # (auto) 2.72 K/uL (1.4-6.5); Neutrophils % (auto) 67.4 %; Platelet Count 70 K/uL (130-400); RDW Coefficient of Variation 16.2 % (11.5-14.5); RDW Standard Deviation 59.8 fL (36.4-46.3); Red Blood Count 3.58 M/uL (4.7-6.1); White Blood Count 4.04 K/uL (4.8-10.8)
[2022-03-28 15:53] LABS: INR 1.3 (0.9-1.1); Partial Thromboplastin Ratio 1.1; Partial Thromboplastin Time 30.2 Seconds (21.0-31.0); Prothrombin Time 14.1 Seconds (9.0-12.0)
[2022-03-28 16:05] LABS: Troponin I High Sensitivity 8.6 pg/ml (0-20)
[2022-03-28 16:14] LABS: Albumin Level 3.1 gm/dl (3.4-5.0); BUN Creatinine Ratio 18.3 (10-20); Bilirubin,Total 1.9 mg/dl (0.2-1.0); Calcium 9.2 mg/dl (8.5-10.1); Creatinine Clr Calc Pharmacy 123.9 ml/min; Est GFR (African American) 105.2 ml/min; Est GFR (Non-African American) 90.8 ml/min; Magnesium 1.9 mg/dl (1.7-2.4); Total Protein 7.5 gm/dl (6.0-8.3)
[2022-03-28 16:59] LABS: Bilirubin Direct 0.4 mg/dl (0-0.2)
[2022-03-28] MEDS ORDERED: LACTULOSE SYRUP 30 GM/45 ML UDP PO STA (17:09)
--- NOTE | 2022-03-28 17:47 | CT Scan Report ---
CT head/brain wo con CLINICAL HISTORY: ams Technique: Contiguous axial CT images of the head were acquired from the base of the skull to the jesus ana without intravenous contrast administration. Images were viewed in brain, subdural and bone [facility]. Automated dose lowering techniques and/or adjustment according to patient size were utilized for this exam. Comparison: Comparison is made to CT head 01/13/2022 Findings: The ventricles, basal cisterns, and cerebral sulci are normal. There is no acute intracranial hemorrh age or evidence of acute territorial infarction. Neither mass effect, shift of the midline structures , nor abnormal extra-axial fluid collections are shown. Imaged portions of the paranasal sinuses and mastoid air cells are clear. The orbits appear normal. There are no acute fractures of the calvaria or scalp swelling. Impression: No acute intracranial hemorrhage, no evidence of acute territorial infarction or other acute intracra nial disease process. ACT 112: Negative or not required by law. Electronically signed by: Spike Barnard M.D. 03/28/2022 5:46 PM
--- NOTE | 2022-03-28 18:18 | Emergency Department Note ---
History of Present Illness General Chief complaint: Altered Mental Status Stated complaint: Altered mental status Time Seen by Provider: 03/28/22 14:05 Source: EMS and RN notes reviewed Limitations: altered mental status History of Present Illness Provider complaint: Altered mental status 56-year-old male presents emergency department for altered mental status. Per EMS the family called. He stated his ammonia was probably high because he was altered. Patient is not oriented and cannot give history. Home Medications Medication Instructions Recorded Confirmed Type allopurinol 300 mg tablet 300 mg PO QAM 06/03/19 03/28/22 History ascorbic acid (vitamin C) 500 mg 500 mg PO QAM 06/03/19 03/28/22 History tablet (Vitamin C) carvedilol 12.5 mg tablet 12.5 mg PO BID 06/03/19 03/28/22 History lisinopril 5 mg tablet 5 mg PO QAM 06/03/19 03/28/22 History metformin 500 mg tablet 500 mg PO AMPM 06/03/19 03/28/22 History multivitamin 1 tab PO QAM 06/03/19 03/28/22 History omeprazole 20 mg capsule,delayed 20 mg PO QAM 06/03/19 03/28/22 History release pioglitazone 30 mg tablet (Actos) 30 mg PO QAM 06/03/19 03/28/22 History atorvastatin 20 mg tablet 20 mg PO DAILY 04/21/21 03/28/22 History furosemide 20 mg tablet 10 mg PO QAM 01/13/22 03/28/22 History glimepiride 1 mg tablet 1 mg PO DAILY 01/13/22 03/28/22 History meloxicam 15 mg tablet 15 mg PO DAILY PRN #7 tab 01/14/22 03/28/22 Rx lactulose 20 gram/30 mL oral 45 g PO TID 03/28/22 03/28/22 History solution Allergies Allergy/AdvReac Type Severity Reaction Status Date / Time aspirin Allergy Intermediate NOSE Verified 01/13/22 18:34 BLEEDS--IF TAKES REGULARLY Past Med/Surg History Medical History (Updated 03/28/22 @ 18:24 by Van Aiken) Acute hepatic encephalopathy Cardiac murmur HX Diabetes mellitus, type 2 Gout Hyperlipidemia Hypertension Surgical History History of colonoscopy Family History Mother History of colonoscopy Brother Family history of diabetes mellitus Brother Family history of diabetes mellitus Grandmother (Paternal) Family history of diabetes mellitus Social History Smoking Status: Never smoker Second Hand Exposure: No; Hx Alcohol Use: No Hx Substance Use: No Preferred Language: Icelandic Communication Ability: Effective 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 Beliefs That Will Affect Care: None marital status: Single Current Living Situation: Family Current Living Situation Comment: Mother, brother Feels Safe at Home: Yes Assistive Devices: None Review of Systems Unobtainable due to cognitive status Physical Exam Vital Signs Vital Signs - 24 hr 03/28/22 13:22 03/28/22 13:24 03/28/22 13:30 Temperature 36.5 C Temperature Source Oral Pulse Rate 75 71 71 Pulse Rate from SpO2 Sensor 70 71 Pulse Rhythm Regular Pulse Strength Normal Respiratory Rate 20 10 L 13 Respiratory Effort / Characteristics Non-Labored Spontaneous Respiratory Depth Normal Respiratory Pattern Regular Blood Pressure 150/73 H Blood Pressure Mean 98 Blood Pressure Position Lying Pulse Oximetry 99 99 99 Oxygen Delivery Method Room Air Sepsis Recent Fever Within 48 Hours No Sepsis New/Unexplained Change in Mental Status No Sepsis Action Taken by Nursing No Action Required 03/28/22 13:40 03/28/22 13:50 03/28/22 14:00 Temperature Temperature Source Pulse Rate 75 68 66 Pulse Rate from SpO2 Sensor 73 68 66 Pulse Rhythm Pulse Strength Respiratory Rate 12 15 10 L Respiratory Effort / Characteristics Respiratory Depth Respiratory Pattern Blood Pressure Blood Pressure Mean Blood Pressure Position Pulse Oximetry 99 98 99 Oxygen Delivery Method Sepsis Recent Fever Within 48 Hours Sepsis New/Unexplained Change in Mental Status Sepsis Action Taken by Nursing 03/28/22 14:10 03/28/22 14:26 03/28/22 14:30 Temperature Temperature Source Pulse Rate 67 190 H 99 H Pulse Rate from SpO2 Sensor 67 71 Pulse Rhythm Pulse Strength Respiratory Rate 13 Respiratory Effort / Characteristics Respiratory Depth Respiratory Pattern Blood Pressure Blood Pressure Mean Blood Pressure Position Pulse Oximetry 99 99 Oxygen Delivery Method Sepsis Recent Fever Within 48 Hours Sepsis New/Unexplained Change in Mental Status Sepsis Action Taken by Nursing 03/28/22 14:37 03/28/22 14:40 03/28/22 14:50 Temperature Temperature Source Pulse Rate 73 72 73 Pulse Rate from SpO2 Sensor 74 72 74 Pulse Rhythm Pulse Strength Respiratory Rate 16 22 16 Respiratory Effort / Characteristics Respiratory Depth Respiratory Pattern Blood Pressure 134/73 Blood Pressure Mean 93 Blood Pressure Position Pulse Oximetry 100 100 100 Oxygen Delivery Method Sepsis Recent Fever Within 48 Hours Sepsis New/Unexplained Change in Mental Status Sepsis Action Taken by Nursing 03/28/22 15:00 03/28/22 15:10 03/28/22 15:20 Temperature Temperature Source Pulse Rate 74 74 76 Pulse Rate from SpO2 Sensor 73 Pulse Rhythm Pulse Strength Respiratory Rate 21 15 17 Respiratory Effort / Characteristics Respiratory Depth Respiratory Pattern Blood Pressure 130/63 Blood Pressure Mean 85 Blood Pressure Position Pulse Oximetry 100 Oxygen Delivery Method Sepsis Recent Fever Within 48 Hours Sepsis New/Unexplained Change in Mental Status Sepsis Action Taken by Nursing Physical Exam GENERAL: Patient's pants are soaked in urine. HENT: Exam performed. - Head: Normocephalic and atraumatic. - Right Ear: External ear normal. No mastoid tenderness. - Left Ear: External ear normal. No mastoid tenderness. - Mouth/Throat: The oropharynx is clear and moist. No trismus in the jaw. No dental abscesses or uvula swelling. No oropharyngeal exudate or tonsillar abscesses. EYES: Conjunctivae and EOM are normal. Pupils are equal, round, and reactive to light. Right eye exhibits no discharge. Left eye exhibits no discharge. No scleral icterus. NECK: Normal range of motion. Neck supple. No JVD present. No spinous process tenderness present. No carotid bruit present. No rigidity. No tracheal deviation and normal range of motion present. No Brudzinski's sign and no Kernig's sign noted. CV: Normal rate, regular rhythm,cardiac murmur and intact distal pulses. There is no peripheral edema. Palpable radial pulses bue. PULM/CHEST: Effort normal and breath sounds normal. No respiratory distress. No stridor. He has no wheezes. He has no rales. - Chest Wall: He exhibits no tenderness. ABD: The abdomen is soft. Bowel sounds are normal. He has no distension. No mass is present. There is no tenderness. There is no rebound, no guarding, no Wise's sign and no tenderness at McBurney's point. Rovsig negative. MUSC/SKEL: Normal range of motion. There is no peripheral edema, tenderness or deformity. LYMPH: No cervical adenopathy. NEURO: He is alert and not oriented to person, place, and time. He has normal strength. No cranial nerve deficit or sensory deficit. SKIN: Skin is warm and dry. He is not diaphoretic. Course Course 1405: The patient was evaluated in room A4. A complete history and physical exam was performed Cardiac monitoring: An order was placed for continuous cardiac monitoring. The monitor shows a rate of 70 with sinus rhythm 1820: Vital signs stable. Labs showed elevated ammonia otherwise within normal limits. Lactic acid white blood cell count and prolactin level within normal limits. CT of the head within normal limits. Patient be treated with lactulose. [facility]. Medical Decision Making Laboratory Data Result diagrams: 03/28/22 15:11 03/28/22 16:30 Lab Results 03/28/22 03/28/22 03/28/22 Range/Units 15:11 15:11 15:11 WBC 4.04 L (4.8-10.8) K/uL RBC 3.58 L (4.7-6.1) M/uL Hgb 12.7 L (14.0-18.0) g/dL Hct 36.3 L (42-52) % MCV 101.4 H (80-100) fL MCH 35.5 H (25-34) pg MCHC 35.0 (32-36) g/dL RDW Std Deviation 59.8 H (36.4-46.3) fL RDW Coeff of Polo 16.2 H (11.5-14.5) % Plt Count 70 L (130-400) K/uL MPV 12.2 H (7.4-10.4) fL Immature Gran % (Auto) 0.2 % Neut % (Auto) 67.4 % Lymph % (Auto) 13.1 % [place] % (Auto) 14.6 % Eos % (Auto) 3.7 % Baso % (Auto) 1.0 % Neut # (Auto) 2.72 (1.4-6.5) K/uL Lymph # (Auto) 0.53 L (1.2-3.4) K/uL [place] # (Auto) 0.59 (0.11-0.59) K/uL Eos # (Auto) 0.15 (0-0.5) K/uL Baso # (Auto) 0.04 (0-0.2) K/uL Immature Gran # (Auto) 0.01 (0.00-0.02) K/uL PT 14.1 H (9.0-12.0) Seconds INR 1.3 H (0.9-1.1) APTT 30.2 (21.0-31.0) Seconds PTT Ratio 1.1 VBG pH (7.36-7.41) VBG pCO2 (38-50) mmHg VBG pO2 mmHg VBG HCO3 mmol/L VBG O2 Saturation % VBG Base Excess mEq/L Barometric Pressure mm/Hg Sodium 138 (136-145) mmol/L Potassium (3.5-5.1) mmol/L Chloride 110 H (98-107) mmol/L Carbon Dioxide 22 (21-32) mmol/L Anion Gap 6 (3-11) BUN 17 (6-23) mg/dl Creatinine 0.93 (0.6-1.4) mg/dl Est Cr Clr Drug Dosing 123.9 ml/min Est GFR ( Amer) 105.2 ml/min Est GFR (Non-Af Amer) 90.8 ml/min BUN/Creatinine Ratio 18.3 (10-20) Glucose 137 H (70-99(Fasting)) mg/dl Lactate (0.4-2.0) mmol/L Calcium 9.2 (8.5-10.1) mg/dl Magnesium 1.9 (1.7-2.4) mg/dl Total Bilirubin 1.9 H (0.2-1.0) mg/dl Direct Bilirubin (0-0.2) mg/dl AST (13-39) U/L ALT 34 (7-52) U/L Alkaline Phosphatase 77 (34-104) U/L Ammonia (18-72) umol/L Troponin I High Sens 8.6 (0-20) pg/ml Total Protein 7.5 (6.0-8.3) gm/dl Albumin 3.1 L (3.4-5.0) gm/dl Lipase 55 (11-82) U/L Procalcitonin (0-0.5) ng/ml Prolactin ng/ml Ethyl Alcohol mg/dL (<10.0) mg/dl 05/30/22 05/30/22 05/30/22 Range/Units 15:11 15:11 15:11 WBC (4.8-10.8) K/uL RBC (4.7-6.1) M/uL Hgb (14.0-18.0) g/dL Hct (42-52) % MCV (80-100) fL MCH (25-34) pg MCHC (32-36) g/dL RDW Std Deviation (36.4-46.3) fL RDW Coeff of Polo (11.5-14.5) % Plt Count (130-400) K/uL MPV (7.4-10.4) fL Immature Gran % (Auto) % Neut % (Auto) % Lymph % (Auto) % [place] % (Auto) % Eos % (Auto) % Baso % (Auto) % Neut # (Auto) (1.4-6.5) K/uL Lymph # (Auto) (1.2-3.4) K/uL [place] # (Auto) (0.11-0.59) K/uL Eos # (Auto) (0-0.5) K/uL Baso # (Auto) (0-0.2) K/uL Immature Gran # (Auto) (0.00-0.02) K/uL PT (9.0-12.0) Seconds INR (0.9-1.1) APTT (21.0-31.0) Seconds PTT Ratio VBG pH 7.40 (7.36-7.41) VBG pCO2 39 (38-50) mmHg VBG pO2 37 mmHg VBG HCO3 24 mmol/L VBG O2 Saturation 67.9 % VBG Base Excess -0.9 mEq/L Barometric Pressure 733.4 mm/Hg Sodium (136-145) mmol/L Potassium (3.5-5.1) mmol/L Chloride (98-107) mmol/L Carbon Dioxide (21-32) mmol/L Anion Gap (3-11) BUN (6-23) mg/dl Creatinine (0.6-1.4) mg/dl Est Cr Clr Drug Dosing ml/min Est GFR ( Amer) ml/min Est GFR (Non-Af Amer) ml/min BUN/Creatinine Ratio (10-20) Glucose (70-99(Fasting)) mg/dl Lactate (0.4-2.0) mmol/L Calcium (8.5-10.1) mg/dl Magnesium (1.7-2.4) mg/dl Total Bilirubin (0.2-1.0) mg/dl Direct Bilirubin (0-0.2) mg/dl AST (13-39) U/L ALT (7-52) U/L Alkaline Phosphatase (34-104) U/L Ammonia (18-72) umol/L Troponin I High Sens (0-20) pg/ml Total Protein (6.0-8.3) gm/dl Albumin (3.4-5.0) gm/dl Lipase (11-82) U/L Procalcitonin 0.15 (0-0.5) ng/ml Prolactin 18.29 ng/ml Ethyl Alcohol mg/dL (<10.0) mg/dl 03/28/22 03/28/22 03/28/22 Range/Units 15:11 15:11 15:44 WBC (4.8-10.8) K/uL RBC (4.7-6.1) M/uL Hgb (14.0-18.0) g/dL Hct (42-52) % MCV (80-100) fL MCH (25-34) pg MCHC (32-36) g/dL RDW Std Deviation (36.4-46.3) fL RDW Coeff of Polo (11.5-14.5) % Plt Count (130-400) K/uL MPV (7.4-10.4) fL Immature Gran % (Auto) % Neut % (Auto) % Lymph % (Auto) % [place] % (Auto) % Eos % (Auto) % Baso % (Auto) % Neut # (Auto) (1.4-6.5) K/uL Lymph # (Auto) (1.2-3.4) K/uL [place] # (Auto) (0.11-0.59) K/uL Eos # (Auto) (0-0.5) K/uL Baso # (Auto) (0-0.2) K/uL Immature Gran # (Auto) (0.00-0.02) K/uL PT (9.0-12.0) Seconds INR (0.9-1.1) APTT (21.0-31.0) Seconds PTT Ratio VBG pH (7.36-7.41) VBG pCO2 (38-50) mmHg VBG pO2 mmHg VBG HCO3 mmol/L VBG O2 Saturation % VBG Base Excess mEq/L Barometric Pressure mm/Hg Sodium (136-145) mmol/L Potassium (3.5-5.1) mmol/L Chloride (98-107) mmol/L Carbon Dioxide (21-32) mmol/L Anion Gap (3-11) BUN (6-23) mg/dl Creatinine (0.6-1.4) mg/dl Est Cr Clr Drug Dosing ml/min Est GFR ( Amer) ml/min Est GFR (Non-Af Amer) ml/min BUN/Creatinine Ratio (10-20) Glucose (70-99(Fasting)) mg/dl Lactate (0.4-2.0) mmol/L Calcium (8.5-10.1) mg/dl Magnesium (1.7-2.4) mg/dl Total Bilirubin (0.2-1.0) mg/dl Direct Bilirubin (0-0.2) mg/dl AST (13-39) U/L ALT (7-52) U/L Alkaline Phosphatase (34-104) U/L Ammonia (18-72) umol/L Troponin I High Sens Cancelled (0-20) pg/ml Total Protein (6.0-8.3) gm/dl Albumin (3.4-5.0) gm/dl Lipase Cancelled (11-82) U/L Procalcitonin (0-0.5) ng/ml Prolactin ng/ml Ethyl Alcohol mg/dL < 10.0 (<10.0) mg/dl 03/28/22 03/28/22 03/28/22 Range/Units 16:30 16:30 16:30 WBC (4.8-10.8) K/uL RBC (4.7-6.1) M/uL Hgb (14.0-18.0) g/dL Hct (42-52) % MCV (80-100) fL MCH (25-34) pg MCHC (32-36) g/dL RDW Std Deviation (36.4-46.3) fL RDW Coeff of Polo (11.5-14.5) % Plt Count (130-400) K/uL MPV (7.4-10.4) fL Immature Gran % (Auto) % Neut % (Auto) % Lymph % (Auto) % [place] % (Auto) % Eos % (Auto) % Baso % (Auto) % Neut # (Auto) (1.4-6.5) K/uL Lymph # (Auto) (1.2-3.4) K/uL [place] # (Auto) (0.11-0.59) K/uL Eos # (Auto) (0-0.5) K/uL Baso # (Auto) (0-0.2) K/uL Immature Gran # (Auto) (0.00-0.02) K/uL PT (9.0-12.0) Seconds INR (0.9-1.1) APTT (21.0-31.0) Seconds PTT Ratio VBG pH (7.36-7.41) VBG pCO2 (38-50) mmHg VBG pO2 mmHg VBG HCO3 mmol/L VBG O2 Saturation % VBG Base Excess mEq/L Barometric Pressure mm/Hg Sodium (136-145) mmol/L Potassium 4.0 (3.5-5.1) mmol/L Chloride (98-107) mmol/L Carbon Dioxide (21-32) mmol/L Anion Gap (3-11) BUN (6-23) mg/dl Creatinine (0.6-1.4) mg/dl Est Cr Clr Drug Dosing ml/min Est GFR ( Amer) ml/min Est GFR (Non-Af Amer) ml/min BUN/Creatinine Ratio (10-20) Glucose (70-99(Fasting)) mg/dl Lactate 1.3 (0.4-2.0) mmol/L Calcium (8.5-10.1) mg/dl Magnesium (1.7-2.4) mg/dl Total Bilirubin (0.2-1.0) mg/dl Direct Bilirubin 0.4 H (0-0.2) mg/dl AST 51 H (13-39) U/L ALT (7-52) U/L Alkaline Phosphatase (34-104) U/L Ammonia 110.0 H (18-72) umol/L Troponin I High Sens (0-20) pg/ml Total Protein (6.0-8.3) gm/dl Albumin (3.4-5.0) gm/dl Lipase (11-82) U/L Procalcitonin (0-0.5) ng/ml Prolactin ng/ml Ethyl Alcohol mg/dL (<10.0) mg/dl Imaging Data Radiologist's Impression: Chest X-Ray 03/28/22 14:41 XR chest 1V portable CLINICAL HISTORY: ams TECHNIQUE: Single frontal radiograph of the chest was obtained. Comparison: Comparison is made to chest radiograph 01/13/2022 FINDINGS: No lines and tubes are seen. Cardiomegaly is noted. The lungs are clear. No evidence of pleural effusion or pneumothorax. IMPRESSION: No acute chest disease. ACT 112: Negative or not required by law. Electronically signed by: Spike Barnard M.D. 03/28/2022 3:[address] 03/28/22 14:41 CT head/brain wo con CLINICAL HISTORY: ams Technique: Contiguous axial CT images of the head were acquired from the base of the skull to the vertex without intravenous contrast administration. Images were viewed in brain, subdural and bone windows. Automated dose lowering techniques and/or adjustment according to patient size were utilized for this exam. Comparison: Comparison is made to CT head 01/13/2022 Findings: The ventricles, basal cisterns, and cerebral sulci are normal. There is no acute intracranial hemorrhage or evidence of acute territorial infarction. Neither mass effect, shift of the midline structures, nor abnormal extra-axial fluid collections are shown. Imaged portions of the paranasal sinuses and mastoid air cells are clear. The orbits appear normal. There are no acute fractures of the calvaria or scalp swelling. Impression: No acute intracranial hemorrhage, no evidence of acute territorial infarction or other acute intracranial disease process. ACT 112: Negative or not required by law. Electronically signed by: Spike Barnard M.D. 03/28/2022 5:46 PM ECG Data Indication: + altered mental status Rate (beats per minute): 66 Rhythm: + normal sinus ECG Intervals/blocks: + Normal QRS, + Normal [place] and + Normal QT-c ECG ST segments: + Normal ST segments MDM Narrative Vital signs stable. Labs showed elevated ammonia otherwise within normal limits. Lactic acid white blood cell count and prolactin level within normal limits. CT of the head within normal limits. Patient be treated with lactulose. [facility]. Impression & Plan Acute hepatic encephalopathy Discharge Plan Visit Data Chief Complaint: Altered Mental Status Stated Complaint: Altered mental status Discharge Problem: Acute hepatic encephalopathy Patient Disposition: Admitted As Inpatient Forms Stand Alone Forms: [facility] Prescriptions Prescriptions: No Action metformin 500 mg Tablet 500 mg PO AMPM RF: 0 carvedilol 12.5 mg Tablet 12.5 mg PO BID RF: 0 omeprazole 20 mg Capsule,Delayed Release(Dr/Ec) 20 mg PO QAM RF: 0 allopurinol 300 mg Tablet 300 mg PO QAM RF: 0 lisinopril 5 mg Tablet 5 mg PO QAM RF: 0 pioglitazone [Actos] 30 mg Tablet 30 mg PO QAM RF: 0 multivitamin Tablet 1 tab PO QAM RF: 0 ascorbic acid (vitamin C) [Vitamin C] 500 mg Tablet 500 mg PO QAM RF: 0 atorvastatin 20 mg tablet 20 mg PO DAILY RF: 0 glimepiride 1 mg tablet 1 mg PO DAILY RF: 0 furosemide 20 mg tablet 10 mg PO QAM RF: 0 meloxicam 15 mg tablet 15 mg PO DAILY PRN (Reason: pain) Qty: 7 RF: 0 lactulose 20 gram/30 mL solution 45 g PO TID RF: 0 Referrals Referrals: Stanford Mays MD [Primary Care Provider] -
--- NOTE | 2022-03-28 18:42 | History & Physical Report ---
Date of Service March 28, 2022 Assessment & Plan (1) Hepatic encephalopathy: Plan: Possibly related to stopping Xifaxan recently. Will consult GI to discuss pros/cons. Cont lactulose, with one dose given in ER this evening. Cont supportive care with lactulose and trend labs including ammonia in morning. 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 (3) Thrombocytopenia: Plan: chronic, 2/2 cirrhosis. No active bleeding. Will give DVT chemoprophylaxis and cont to monitor. (4) Hyperlipidemia: Plan: chronic, stable. Cont atorvastatin per home regimen. (5) Gout: Plan: chronic, stable without flares reported. Cont allopurinol per home regimen. (6) Diabetes mellitus, type 2: Plan: chronic, stable. A1C pending. Change to basal bolus insulin while hospitalized for optimal control of glucose. Hold glimepiride and metformin for now. (7) DVT prophylaxis: Plan: Lovenox Full Code Dispo- to telemetry and home within 1-2 days when improved. Stacie Lutz DO [facility] Hospitalist History of Present Illness Chief Complaint: confusion, family concerned Primary Care Provider: Stanford Mays MD 56 yo M with h/o liver cirrhosis and recent hospital admission for hepatic encephalopathy, again presents with confusion and hyperammonemia. He was just hospitalized in December 2021 and reports feeling well since discharge. At that time he was started on Xifaxan and was taking it until 3 weeks ago, stopping because of the cost. He reports consistently having 2-3 BMs daily and denies any recent infectious symptoms. Denies UTI symptoms, cough, fevers, chills, abdominal pain or swelling. He reports slight swelling in his legs bilaterally and "that is why I take the fluid pill." Other than stopping the Xifaxan there are no other medication changes reported. He is oriented with a slowness to respond and +asterixis on exam. He reports he is eating well at home. Allergies Allergy/AdvReac Type Severity Reaction Status Date / Time aspirin Allergy Intermediate NOSE Verified 01/13/22 18:34 BLEEDS--IF TAKES REGULARLY Home Medications Medication Instructions Recorded Confirmed Type allopurinol 300 mg tablet 300 mg PO QAM 06/03/19 03/28/22 History ascorbic acid (vitamin C) 500 mg 500 mg PO QAM 06/03/19 03/28/22 History tablet (Vitamin C) carvedilol 12.5 mg tablet 12.5 mg PO BID 06/03/19 03/28/22 History lisinopril 5 mg tablet 5 mg PO QAM 06/03/19 03/28/22 History metformin 500 mg tablet 500 mg PO BID17 06/03/19 03/28/22 History multivitamin 1 tab PO QAM 06/03/19 03/28/22 History omeprazole 20 mg capsule,delayed 20 mg PO QAM 06/03/19 03/28/22 History release pioglitazone 30 mg tablet (Actos) 30 mg PO QAM 06/03/19 03/28/22 History atorvastatin 20 mg tablet 20 mg PO DAILY 04/21/21 03/28/22 History furosemide 20 mg tablet 10 mg PO QAM 01/13/22 03/28/22 History glimepiride 1 mg tablet 1 mg PO DAILY 01/13/22 03/28/22 History meloxicam 15 mg tablet 15 mg PO DAILY PRN #7 tab 01/14/22 03/28/22 Rx lactulose 20 gram/30 mL oral 45 g PO TID 03/28/22 03/28/22 History solution spironolactone 50 mg tablet 50 mg PO DAILY 03/28/22 03/28/22 History Past Med/Surg History Medical History Acute hepatic encephalopathy Anaplasmosis 2020 Cardiac murmur HX Diabetes mellitus, type 2 Fracture of rib of right side 2014 Gout Hyperlipidemia Hyperlipidemia Hypertension 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 Right rib fracture Thrombocytopenia Surgical History History of colonoscopy Family History Mother History of colonoscopy Brother Family history of diabetes mellitus Brother Family history of diabetes mellitus Grandmother (Paternal) Family history of diabetes mellitus Social History Smoking Status: Never smoker Second Hand Exposure: No; Hx Alcohol Use: No Hx Substance Use: No Preferred Language: Arabic Communication Ability: Effective Double Needle Operator Required: No Beliefs That Will Affect Care: None marital status: Single Current Living Situation: Family Current Living Situation Comment: Mother, brother Feels Safe at Home: Yes Assistive Devices: None Review of Systems Review of Systems: All systems were reviewed and negative except as indicated in HPI above. Physical Exam Physical Exam: CONSTITUTIONAL: obese, vitals as above, generally well- appearing, NAD EYES: EOMI bilaterally, PERRL, normal conjunctivae, no scleral icterus, ENT: external ear and nose normal, MMM NECK: trachea midline RESPIRATORY: clear to auscultation bilaterally, no crackles, rales or wheezes, normal respiratory effort CARDIOVASCULAR: regular rate and rhythm, 3/6 RAHAT heard, no gallops or rubs, no JVD, no peripheral edema, CHEST: inspection of chest was normal GASTROINTESTINAL: soft, nontender, ND, protuberant without maxwell abdominal fluid wave, some increased density to tissues in the RUQ without tenderness, no guarding MUSCULOSKELETAL: strength 5/5 throughout, head is normocephalic and atraumatic, neck supple SKIN: warm and dry NEUROLOGIC: CN 2-12 grossly intact, no sensory deficit, normal cognition, normal speech, +asterixis PSYCHIATRIC: alert cooperative and oriented to person, place and time. Euthymic mood, makes good eye contact, language grossly intact, recent and remote memory grossly intact. Results & Data Results & Data ([facility]) Vital Signs (Past 12 Hours) Vital Signs Temp Pulse Resp BP Pulse Ox 03/28/22 18:30 64 12 116/56 L 98 03/28/22 18:20 63 13 98 03/28/22 18:10 74 11 L 100 03/28/22 18:00 64 12 109/62 99 03/28/22 17:50 63 11 L 100 03/28/22 17:40 62 11 L 100 03/28/22 17:30 64 12 121/68 100 03/28/22 17:28 100 03/28/22 17:10 63 14 98 03/28/22 17:00 70 13 105/56 L 98 03/28/22 16:50 60 13 100 03/28/22 16:40 65 14 98 03/28/22 16:30 69 18 125/69 03/28/22 16:20 67 13 100 03/28/22 16:10 64 13 100 03/28/22 16:00 70 13 110/53 L 98 03/28/22 15:50 70 13 92 03/28/22 15:40 68 9 L 100 03/28/22 15:30 67 13 99 03/28/22 15:20 76 17 100 03/28/22 15:10 74 15 03/28/22 15:00 74 21 130/63 03/28/22 14:50 73 16 100 03/28/22 14:40 72 22 100 03/28/22 14:37 73 16 134/73 100 03/28/22 14:30 99 H 99 03/28/22 14:26 190 H 03/28/22 14:10 67 13 99 03/28/22 14:00 66 10 L 99 03/28/22 13:50 68 15 98 03/28/22 13:40 75 12 99 03/28/22 13:30 71 13 99 03/28/22 13:24 71 10 L 99 03/28/22 13:22 36.5 C 75 20 150/73 H 99 Laboratory Results Short CBC 03/28/22 Range/Units 15:11 WBC 4.04 L (4.8-10.8) K/uL Hgb 12.7 L (14.0-18.0) g/dL Hct 36.3 L (42-52) % Plt Count 70 L (130-400) K/uL BMP 03/28/22 03/28/22 15:11 16:30 Sodium 138 Potassium 4.0 Chloride 110 H Carbon Dioxide 22 BUN 17 Creatinine 0.93 Glucose 137 H Calcium 9.2 Liver Function 03/28/22 03/28/22 Range/Units 15:11 16:30 Total Bilirubin 1.9 H (0.2-1.0) mg/dl Direct Bilirubin 0.4 H (0-0.2) mg/dl AST 51 H (13-39) U/L ALT 34 (7-52) U/L Alkaline Phosphatase 77 (34-104) U/L Albumin 3.1 L (3.4-5.0) gm/dl Diagnostic Findings Chest X-Ray 03/28/22 14:41 XR chest 1V portable CLINICAL HISTORY: ams TECHNIQUE: Single frontal radiograph of the chest was obtained. Comparison: Comparison is made to chest radiograph 01/13/2022 FINDINGS: No lines and tubes are seen. Cardiomegaly is noted. The lungs are clear. No evidence of pleural effusion or pneumothorax. IMPRESSION: No acute chest disease. ACT 112: Negative or not required by law. Electronically signed by: Spike Barnard M.D. 03/28/2022 3:[address] 03/28/22 14:41 CT head/brain wo con CLINICAL HISTORY: ams Technique: Contiguous axial CT images of the head were acquired from the base of the skull to the vertex without intravenous contrast administration. Images were viewed in brain, subdural and bone windows. Automated dose lowering techniques and/or adjustment according to patient size were utilized for this exam. Comparison: Comparison is made to CT head 01/13/2022 Findings: The ventricles, basal cisterns, and cerebral sulci are normal. There is no acute intracranial hemorrhage or evidence of acute territorial infarction. Neither mass effect, shift of the midline structures, nor abnormal extra-axial fluid collections are shown. Imaged portions of the paranasal sinuses and mastoid air cells are clear. The orbits appear normal. There are no acute fractures of the calvaria or scalp swelling. Impression: No acute intracranial hemorrhage, no evidence of acute territorial infarction or other acute intracranial disease process. ACT 112: Negative or not required by law. Electronically signed by: Spike Barnard M.D. 03/28/2022 5:46 PM Code Status & VTE Plan VTE Prophylaxis Plan VTE Prophylaxis will be ordered: Yes
[2022-03-28 19:48] LABS: Appearance Urine Clear (Clear); Bilirubin Urine Negative (Negative); Blood Urine Negative (Negative); Color Urine Yellow; Glucose Urine UA Negative (Negative); Ketones Urine Negative (Negative); Leukocyte Esterase Urine Negative (Negative); Nitrite Urine Negative (Negative); Protein Urine Negative (Negative); Specific Gravity Urine 1.017 (1.000-1.030); Urobilinogen Urine Negative (Negative)
[2022-03-28] MEDS ORDERED: ACETAMINOPHEN 325 MG TAB PO STA (20:44)
[2022-03-28] MEDS ORDERED: ACETAMINOPHEN 325 MG TAB ONE (20:51)
[2022-03-28] MEDS ORDERED: GLUCOSE 40% GEL 15 GM TUBE PO PRN (23:18)
[2022-03-28] MEDS ORDERED: GLUCOSE 10 TABS/TUBE PO PRN (23:18)
[2022-03-28] MEDS ORDERED: GLUCAGON FOR INJ 1 MG VIAL SQ PRN (23:18)
[2022-03-28] MEDS ORDERED: DEXTROSE 50% 50 ML SYRINGE IV PRN (23:18)
[2022-03-28] MEDS ORDERED: CARBOHYDRATES FOR HYPOGLYCEMIA PO PRN (23:18)
[2022-03-29] MEDS: carvediloL 12.5 MG TAB PO SCH ×3 (00:35→20:13)
[2022-03-29] MEDS: INSULIN ASPART PER UNIT SC SCH ×5 (00:49→21:27)
[2022-03-29] MEDS: INSULIN GLARGINE SOLOSTAR 100 UNITS/ML 3 ML PEN SC SCH ×3 (00:50→21:35)
[2022-03-29 06:02] LABS: Hematocrit (blood only) 34.9 % (42-52); Hemoglobin 11.8 g/dL (14.0-18.0); Mean Corpuscular Hemoglobin 34.2 pg (25-34); Mean Corpuscular Hgb Conc 33.8 g/dL (32-36); Mean Corpuscular Volume 101.2 fL (80-100); RDW Coefficient of Variation 16.6 % (11.5-14.5); RDW Standard Deviation 60.9 fL (36.4-46.3); Red Blood Count 3.45 M/uL (4.7-6.1); White Blood Count 4.45 K/uL (4.8-10.8)
[2022-03-29 06:05] LABS: Mean Platelet Volume 10.7 fL (7.4-10.4); Platelet Count 65 K/uL (130-400)
[2022-03-29 06:06] LABS: INR 1.4 (0.9-1.1); Prothrombin Time 14.9 Seconds (9.0-12.0)
[2022-03-29 06:18] LABS: Albumin Globulin Ratio 0.7 (0.9-2); Albumin Level 2.7 gm/dl (3.4-5.0); BUN Creatinine Ratio 19.1 (10-20); Bilirubin,Total 2.2 mg/dl (0.2-1.0); Calcium 8.8 mg/dl (8.5-10.1); Creatinine Clr Calc Pharmacy 122.5 ml/min; Est GFR (African American) 103.9 ml/min; Est GFR (Non-African American) 89.6 ml/min; Globulin 3.9 gm/dl (2.5-4.0); Potassium 3.6 mmol/L (3.5-5.1); Total Protein 6.6 gm/dl (6.0-8.3)
[2022-03-29 07:57] LABS: Estimated Average Glucose 123 mg/dl; Hemoglobin A1C 5.9 % (4.5-5.6)
--- NOTE | 2022-03-29 08:23 | Electrocardiogram Report ---
Test Reason : Blood Pressure : / mmHG Vent. Rate : 066 BPM Atrial Rate : 066 BPM P-R Int : 152 ms QRS Dur : 086 ms QT Int : 442 ms P-R-T Axes : 056 027 040 degrees QTc Int : 463 ms Normal sinus rhythm Normal ECG When compared with ECG of 14-JAN-2022 05:56, No significant change was found Confirmed by Skip Gomes ([id number]) on 03/29/2022 8:22:47 AM Referred By: REFERRED SELF Confirmed By:Skip Gomes
[2022-03-29] MEDS: lisinopril 5 MG TAB PO SCH (08:46)
[2022-03-29] MEDS: allopurinoL 300 MG TAB PO SCH (08:46)
[2022-03-29] MEDS: ATORVASTATIN 20 MG TAB PO SCH (08:46)
[2022-03-29] MEDS: ASCORBIC ACID 500 MG TAB PO SCH (08:46)
[2022-03-29] MEDS: SPIRONOLACTONE 25 MG TAB PO SCH (08:46)
[2022-03-29] MEDS: MULTIVITAMIN TAB PO SCH (08:46)
[2022-03-29] MEDS: PANTOprazole 40 MG TAB PO SCH (08:46)
[2022-03-29] MEDS ORDERED: FUROSEMIDE 20 MG TAB PO SCH (09:00)
[2022-03-29] MEDS ORDERED: LACTULOSE SYRUP 10 GM/15 ML BTL 960 ML PO SCH (09:00)
--- NOTE | 2022-03-29 10:58 | Gastrointestinal Consultation ---
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 Liver US 2. Rifaximin 550mg BID 3. Lactulose 45ml (30gm) TID. 4. Urine/blood cx. 5. Continued OP GI f/u for cirrhosis. 6. OK to restart OP diuretics at previous dosing: Furosemide 20mg BID and Spironolactone 50mg daily. 7. Low salt diet 8. Because mentating normally, no GI contraindication to low salt diet, and discharge after above tests are done. 9. Of note, pt should have an OP podiatry referral for ingrown toenails. Doubt infection has been significant - doubt that it has triggered the hep enceph but should tx and minimize any future skin infections there. GI will sign off. Please notify us if new/worsening GI issues. Supervising Physician Co-Signing Physician Notes Attending attestation I have seen, examined this patient, and agree with the findings and above by our mid-level provider CONCHIS Deluca, with the following additions: HE has clinically cleared, etiology likely cessation of Xifaxin Would resume and f/u as outpt History of Present Illness Reason for Consultation: hepatic enceph, h/o cirrhosis, establshed pt Requesting Physician: Dr. Lutz Attending Physician: Hasmukh Judd MD History of Present Illness Mr. Lloyd Spencer Is a 56-year-old male with GONZALES cirrhosis, prior hepatic encephalopathy, who presented to the emergency department yesterday for confusion weakness. Since that time is much improved he is awake and alert and oriented this morning. He reports that he does take his lactulose 3 times daily though he had recently held it because he was having more than 3 bowel movements per day. He has been prescribed rifaximin in the past but has not been taking it due to cost. (Which is 35 dollars per month which he now says he will make an effort to fill the prescription and stay on it). He denies any of the following: recent fevers chills sweats, yellow eyes yellow skin, abdominal pain, nausea vomiting, increasing peripheral edema or ascites,black or red bowel movements. Also history of Acites: managed with furosemide 20 mg, spironolactone 50 mg per day. He verifies he has been taking these regularly. Screenings: Liver ultrasound 02/28/2022: cirrhosis, trace ascites, no focal liver lesions. EGD July 2021: normal Colonoscopy 2019: normal MELD score today 13 Allergies Allergy/AdvReac Type Severity Reaction Status Date / Time aspirin Allergy Intermediate NOSE Verified 01/13/22 18:34 BLEEDS--IF TAKES REGULARLY Home Medications Medication Instructions Recorded Confirmed Type allopurinol 300 mg tablet 300 mg PO QAM 06/03/19 03/28/22 History ascorbic acid (vitamin C) 500 mg 500 mg PO QAM 06/03/19 03/28/22 History tablet (Vitamin C) carvedilol 12.5 mg tablet 12.5 mg PO BID 06/03/19 03/28/22 History lisinopril 5 mg tablet 5 mg PO QAM 06/03/19 03/28/22 History metformin 500 mg tablet 500 mg PO BID17 06/03/19 03/28/22 History multivitamin 1 tab PO QAM 06/03/19 03/28/22 History omeprazole 20 mg capsule,delayed 20 mg PO QAM 06/03/19 03/28/22 History release pioglitazone 30 mg tablet (Actos) 30 mg PO QAM 06/03/19 03/28/22 History atorvastatin 20 mg tablet 20 mg PO DAILY 04/21/21 03/28/22 History furosemide 20 mg tablet 10 mg PO QAM 01/13/22 03/28/22 History glimepiride 1 mg tablet 1 mg PO DAILY 01/13/22 03/28/22 History meloxicam 15 mg tablet 15 mg PO DAILY PRN #7 tab 01/14/22 03/28/22 Rx lactulose 20 gram/30 mL oral 45 g PO TID 03/28/22 03/28/22 History solution spironolactone 50 mg tablet 50 mg PO DAILY 03/28/22 03/28/22 History Patient History Medical History Acute hepatic encephalopathy Anaplasmosis 2019 Cardiac murmur HX Diabetes mellitus, type 2 Fracture of rib of right side 2013 Gout Hyperlipidemia Hyperlipidemia Hypertension 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 Right rib fracture Thrombocytopenia Surgical History History of colonoscopy Family History Mother History of colonoscopy Brother Family history of diabetes mellitus Brother Family history of diabetes mellitus Grandmother (Paternal) Family history of diabetes mellitus Social History Smoking Status: Never smoker Second Hand Exposure: No; Hx Alcohol Use: No Hx Substance Use: Yes Preferred Language: Lebanese Communication Ability: Effective Spiral Machine Operator Required: No Beliefs That Will Affect Care: None marital status: Single Current Living Situation: Family Current Living Situation Comment: Mother, brother Feels Safe at Home: Yes Safety Concerns: Feels Safe At This Time Assistive Devices: None Review of Systems Review of Systems: ROS: Gen: + confusion, now resolved. Denies weakness, fevers, weight loss Eyes: No eye redness, or pain, no recent vision changes Resp: No SOB, no cough Cardio: No palpitations/irregular beats, no chest pain GI: No abdominal pain, no nausea/vomiting : Denies pain on urination Skin: No jaundice, itching or new rashes Physical Exam Constitutional: well developed and cooperative Eyes: PERRL, conjunctivae normal, anicteric sclerae Respiratory: normal respiratory effort, lungs clear to auscultation Cardiovascular: Rate/Rhythm: regular rate and regular rhythm Heart Sounds: normal S1, normal S2 and + murmur (2-3/6 Systolic) Extremities: no edema Gastrointestinal (Abdomen): Inspection/Auscultation: abdomen not distended Percussion/Palpation: abdomen soft; abdomen nontender obese, no obvious ascites Musculoskeletal: no cyanosis or clubbing, extremities motor strength 5/5 Skin: normal turgor ingrown toenails both large toes, medial nail borders. no current redness or discharge. Neurologic: PERRL, EOMI, accommodation nl, no face palsy, no dysarthria awake; not confused no asterixis, no tremor Psychiatric: A+Ox3, euthymic affect Orientation: alert, oriented x 3 and cooperative Lymphatic: no cervical or axillary lymphadenopathy Results & Data ([facility]) Vital Signs (Past 12 Hours) Vital Signs Pulse Pulse Resp BP BP Pulse Ox Pulse Ox 03/29/22 10:08 74 16 97/56 L 97 03/29/22 09:14 77 16 126/53 L 98 03/29/22 08:00 72 16 111/59 L 97 03/29/22 06:56 70 16 105/58 L 98 03/29/22 05:34 68 16 113/61 98 03/29/22 05:33 98 03/29/22 00:07 82 18 121/66 98 Laboratory Results WBC 4.4, HB 11.5, HCT 34, PLT S 65, PT 14.9, INR 1.4, Na 140, K 3.6, Cl 111, CO2 23, BUN 18, CR 0.94, glucose 92. Diagnostic Findings CXR no acute findings
--- NOTE | 2022-03-29 11:28 | Ultrasound Report ---
ABDOMINAL ULTRASOUND, RIGHT UPPER QUADRANT HISTORY: cirrhosis, el LFTs, rule out bile duct obstructi. COMPARISON: Abdomen and pelvis CT 04/22/2021. FINDINGS: Pancreas: The pancreas is not well visualized due to overlying bowel gas but appears unremarkable. Liver: Nodular contour to the liver consistent with cirrhosis. No hepatic masses identified. Gallbladder: No gallbladder wall thickening. No gallstones. CBD: 5 mm. Right kidney: No hydronephrosis. IMPRESSION: 1. Normal gallbladder. No gallstones. 2. Cirrhotic liver again noted. ACT 112: Negative or not required by law. Electronically signed by: Huber Alvarado M.D. 03/29/2022 11:27 AM
[2022-03-29] MEDS: ACETAMINOPHEN 325 MG TAB PO PRN (12:37)
[2022-03-29] MEDS: LACTULOSE SYRUP 30 GM/45 ML UDP PO SCH ×2 (15:38→20:14)
--- NOTE | 2022-03-29 16:27 | Hospitalist Progress Note ---
Date of Service March 29, 2022 Assessment & Plan (1) Hepatic encephalopathy: Plan: Usual lactulose, rifaximin ordered Patient now alert, oriented x3 Ammonia level normal GI consulted Recommend continue usual regimen Recommended Lasix 20 mg daily instead of 10 mg daily Patient was not able to fill Xifaxan on time He reports no problems with insurance coverage Patient requests Xifaxan prescription to be written for 90 days with 2 refills Possible infected ingrown toenail, right big toe Cephalexin 500 mg 4 times daily x7 days Monitor closely Patient follows with [facility], advised to follow-up with [facility] within 1 week (2) 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 (3) Thrombocytopenia: Plan: chronic, 2/2 cirrhosis. Platelet count stable No signs of active bleeding (4) Hyperlipidemia: Plan: Continue Lipitor (5) Gout: Plan: chronic, stable without flares reported. Cont allopurinol per home regimen. (6) Diabetes mellitus, type 2: Plan: chronic, stable. A1c 5.9 Continue insulin sliding scale (7) DVT prophylaxis: Plan: Lovenox Full Code Disposition Anticipate discharge to home when medically stable plan of care discussed with patient in detail and at length all questions answered he is understanding, agreeable, comfortable with the plan of care Admission and Anticipated Discharge Date Admission Date: March 28, 2022 Subjective Follow-up for hepatic encephalopathy, etc. Seen resting in bed, sitting up, in good spirits Oriented x3, answers all questions appropriately States he feels fine overall No headache, dizziness, cough, shortness of breath, chest pain abdominal pain, nausea vomiting, problems urination or bowel movement Reports pain on the right great toe, worse with walking, no fevers or chills No other symptoms Review of Systems Review of Systems: all noted and negative except for above Physical Exam Physical Exam: General- oriented x 3, not in distress, speaks in sentences with no effort or accessory muscle use Head- atraumatic Eyes- PERRL, EOMI, anicteric ENT- oropharynx clear Neck- supple, no JVD, no adenopathy, no thyromegaly; carotids +2/2, no bruits appreciated Lungs- clear to auscultation bilaterally, no rales/wheezes Heart- normal rate, regular rhythm; no murmur, no gallop, no rub appreciated Abdomen- normal bowel sounds, nondistended, soft, nontender, no masses or hepatosplenomegaly Extremities- no pretibial edema, no calf tenderness; peripheral pulses intact Right great toe-mild erythema, mild warmth, moderate tenderness on the distal phalanx, no edema Neuro- alert, oriented x 3; CN 2-12 grossly intact; motor 5/5 bilaterally;sensation 100% on all extremities; no other gross focal neurologic deficits Skin- warm & dry Results & Data Results & Data ([facility]) Vital Signs (Past 12 Hours) Vital Signs Temp Pulse Pulse Resp BP Pulse Ox Pulse Ox 03/29/22 15:20 62 03/29/22 14:00 36.7 C 64 20 103/63 98 03/29/22 12:25 64 03/29/22 11:51 36.8 C 63 18 97/66 L 98 03/29/22 10:59 84 16 106/59 L 97 03/29/22 10:08 74 16 97/56 L 97 03/29/22 09:14 77 16 126/53 L 98 03/29/22 08:00 72 16 111/59 L 97 03/29/22 06:56 70 16 105/58 L 98 03/29/22 05:34 68 16 113/61 98 03/29/22 05:33 98 all noted and reviewed including below
[2022-03-29] MEDS: cephALEXin 500 MG CAP PO SCH ×2 (18:07→20:13)
[2022-03-30] MEDS: ACETAMINOPHEN 325 MG TAB PO PRN ×2 (06:10→13:00)
[2022-03-30] MEDS: allopurinoL 300 MG TAB PO SCH (07:57)
[2022-03-30] MEDS: SPIRONOLACTONE 25 MG TAB PO SCH (07:57)
[2022-03-30] MEDS: lisinopril 5 MG TAB PO SCH (07:57)
[2022-03-30] MEDS: ASCORBIC ACID 500 MG TAB PO SCH (07:57)
[2022-03-30] MEDS: MULTIVITAMIN TAB PO SCH (07:57)
[2022-03-30] MEDS: carvediloL 12.5 MG TAB PO SCH (07:57)
[2022-03-30] MEDS: PANTOprazole 40 MG TAB PO SCH (07:57)
[2022-03-30] MEDS: ATORVASTATIN 20 MG TAB PO SCH (07:58)
[2022-03-30] MEDS: cephALEXin 500 MG CAP PO SCH ×2 (07:58→12:49)
[2022-03-30] MEDS: INSULIN GLARGINE SOLOSTAR 100 UNITS/ML 3 ML PEN SC SCH (07:58)
[2022-03-30] MEDS: LACTULOSE SYRUP 30 GM/45 ML UDP PO SCH ×2 (07:59→13:15)
[2022-03-30] MEDS: INSULIN ASPART PER UNIT SC SCH ×2 (08:05→12:49)
[2022-03-30] MEDS ORDERED: FUROSEMIDE 20 MG TAB PO SCH (09:00)
--- NOTE | 2022-03-30 14:02 | Hospitalist Progress Note ---
Date of Service March 30, 2022 Assessment & Plan (1) Hepatic encephalopathy: Plan: Hepatic encephalopathy History of liver cirrhosis secondary to GONZALES --CT Head:No acute intracranial hemorrhage, no evidence of acute territorial infarction or other acute intracranial disease process. --Liver USD:Normal gallbladder. No gallstones. Cirrhotic liver again noted. 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 Monitor Platelet count No signs of active bleeding (4) Hyperlipidemia: Plan: Continue Lipitor (5) Gout: Plan: Chronic, stable without flares Continue allopurinol (6) Diabetes mellitus, type 2: Plan: chronic, stable. A1c 5.9 Continue insulin sliding scale (7) DVT prophylaxis: Plan: Code Status Full Code Disposition Home Admission and Anticipated Discharge Date Admission Date: March 28, 2022 Subjective Patient is seen and examined at bedside States feeling well today Reports having minimal toenail discomfort Denies any chest pain, shortness of breath, dizziness, nausea, abdominal pain Discussed with GI today Review of Systems Review of Systems: All systems reviewed & are unremarkable except as noted in Subjective Physical Exam Physical Exam: Physical Exam: Vitals signs as noted above General Appearance:Obese, no apparent distress Head: normocephalic, Atraumatic Eyes: normal inspection, EOMI Neck: supple, Trachea midline Respiratory/Chest: Normal breath sounds, CTA Cardiovascular: S1, S2, No murmur Abdomen/GI:Soft, Non tender, Bowel sounds present Extremities/Musculoskeletal:normal inspection, no edema, Ingrowing Toe Nail Neurologic/Psych:AAOX3, grossly no focal neurological deficits Skin: normal color, warm Results & Data Results & Data ([facility]) Vital Signs (Past 12 Hours) Vital Signs Temp Pulse Pulse Pulse Resp BP BP 03/30/22 11:55 36.9 C 60 14 110/70 03/30/22 11:00 37.0 C 61 18 102/58 L 03/30/22 10:57 60 03/30/22 07:38 36.8 C 64 16 116/70 03/30/22 03:35 36.9 C 67 18 96/59 L Pulse Ox 03/30/22 11:55 96 03/30/22 11:00 98 03/30/22 10:57 03/30/22 07:38 97 03/30/22 03:35 98
--- NOTE | 2022-03-30 14:17 | Discharge Summary ---
Date of Service March 30, 2022 Admission HPI Per Admitting Provider 56 yo M with h/o liver cirrhosis and recent hospital admission for hepatic encephalopathy, again presents with confusion and hyperammonemia. He was just hospitalized in December 2021 and reports feeling well since discharge. At that time he was started on Xifaxan and was taking it until 3 weeks ago, stopping because of the cost. He reports consistently having 2-3 BMs daily and denies any recent infectious symptoms. Denies UTI symptoms, cough, fevers, chills, abdominal pain or swelling. He reports slight swelling in his legs bilaterally and "that is why I take the fluid pill." Other than stopping the Xifaxan there are no other medication changes reported. He is oriented with a slowness to respond and +asterixis on exam. He reports he is eating well at home. Admission Exam Per Admitting Provider Physical Exam Physical Exam: CONSTITUTIONAL: obese, vitals as above, generally well-appea ring, NAD EYES: EOMI bilaterally, PERRL, normal conjunctivae, no scleral icterus, ENT: external ear and nose normal, MMM NECK: trachea midline RESPIRATORY: clear to auscultation bilaterally, no crackles, rales or wheezes, normal respiratory effort CARDIOVASCULAR: regular rate and rhythm, 3/6 RAHAT heard, no gallops or rubs, no JVD, no peripheral edema, CHEST: inspection of chest was normal GASTROINTESTINAL: soft, nontender, ND, protuberant without maxwell abdominal fluid wave, some increased density to tissues in the RUQ without tenderness, no guarding MUSCULOSKELETAL: strength 5/5 throughout, head is normocephalic and atraumatic, neck supple SKIN: warm and dry NEUROLOGIC: CN 2-12 grossly intact, no sensory deficit, normal cognition, normal speech, +asterixis PSYCHIATRIC: alert cooperative and oriented to person, place and time. Euthymic mood, makes good eye contact, language grossly intact, recent and remote memory grossly intact. Principal Diagnosis Hepatic encephalopathy Possible infected ingrown toenail Thrombocytopenia Discharge Data Allergies Allergy/AdvReac Type Severity Reaction Status Date / Time aspirin Allergy Intermediate NOSE Verified 01/13/22 18:34 BLEEDS--IF TAKES REGULARLY Consultations 03/28/22 17:50 ED Decision to Admit Stat 03/28/22 23:18 Consult Gastroenterology Routine Ordered Studies 03/28/22 14:41 CT head/brain wo con Stat 03/29/22 09:07 US liver Routine Hospital Course (1) Hepatic encephalopathy: Hepatic encephalopathy History of liver cirrhosis secondary to GONZALES --CT Head:No acute intracranial hemorrhage, no evidence of acute territorial infarction or other acute intracranial disease process. --Liver USD:Normal gallbladder. No gallstones. Cirrhotic liver again noted. Continue Lactulose, rifaximin ordered Appreciate GI Input GI Recommended Lasix 20 mg daily instead of 10 mg daily Possible infected ingrown toenail, right big toe Continue Cephalexin 500 mg 4 times daily x7 days Plans to follow up with his coating operator at [place] coating operator within 1 week (2) 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: chronic MELD score unchanged at 12 (3) Thrombocytopenia: chronic due to Cirrhosis. Monitor Platelet count No signs of active bleeding (4) Hyperlipidemia: Continue Lipitor (5) Gout: Chronic, stable without flares Continue allopurinol (6) Diabetes mellitus, type 2: chronic, stable. A1c 5.9 Continue insulin sliding scale (7) DVT prophylaxis: Code Status Full Code Disposition Home Total Time Total Time Spent Total Time Spent (In Minutes): 45 minutes Discharge Plan Discharge Items Patient Disposition: Home - Self-Care Reason For Visit: HEPATIC ENCEPHALOPATHY,DECOMPENSATED CIRRHOSIS Discharge Diagnosis: Hepatic encephalopathy Possible infected ingrown toenail Thrombocytopenia Activity: Per Instructions section Exercise/Sports: Wait until after follow-up appointment Non-emergency contact: Primary Care Provider, Specialist and Sueding Machine Operator Call non-emergency contact if: you have any medication questions, your symptoms worsen, your pain is concerning for you and you have a fever Follow-up/Referrals: Stanford Mays MD [Primary Care Provider] - Diet: Carb Consistent or DM2 and Heart Healthy Addtl Attending Provider Instructions: Follow-up with your primary care physician in 1 week. Please call for appointment Follow-up with your order selector in 3 to 4 weeks Follow-up with your coating operator in 1 week as advised --Complete the antibiotic course as prescribed Seek immediate medical attention if your symptoms reoccur or worsen Please take all medications as instructed on discharge list below. Please call if you have any questions or problems. You can reach a [facility] hospitalist on duty at [facility] 24 hours a day by calling [phone] Pending Studies at Discharge: No Stand-Alone Forms: My [facility], Work/School Release, Smoking Cessation Medications and DC Order Prescriptions: New cephalexin 500 mg Capsule 500 mg PO QID 6 Days Qty: 24 RF: 0 rifaximin 550 mg tablet 550 mg PO BID Qty: 180 RF: 2 Continued metformin 500 mg Tablet 500 mg PO BID17 RF: 0 carvedilol 12.5 mg Tablet 12.5 mg PO BID RF: 0 omeprazole 20 mg Capsule,Delayed Release(Dr/Ec) 20 mg PO QAM RF: 0 allopurinol 300 mg Tablet 300 mg PO QAM RF: 0 lisinopril 5 mg Tablet 5 mg PO QAM RF: 0 pioglitazone [Actos] 30 mg Tablet 30 mg PO QAM RF: 0 multivitamin Tablet 1 tab PO QAM RF: 0 ascorbic acid (vitamin C) [Vitamin C] 500 mg Tablet 500 mg PO QAM RF: 0 atorvastatin 20 mg tablet 20 mg PO DAILY RF: 0 glimepiride 1 mg tablet 1 mg PO DAILY RF: 0 meloxicam 15 mg tablet 15 mg PO DAILY PRN (Reason: pain) Qty: 7 RF: 0 spironolactone 50 mg tablet 50 mg PO DAILY RF: 0 Changed furosemide 20 mg tablet 20 mg PO QAM Qty: 30 RF: 0 lactulose 20 gram/30 mL solution 45 g PO TID 30 Days Qty: 3000 RF: 0 Discharge Orders: Discharge Order (Routine); Ordered 03/30/22 Ordered By: Karsten Delgado Admission Data Admit Date/Time: 03/28/22 18:36 Attending Provider: Karsten Delgado Admit Provider: Stacie Lutz Primary Care Provider: Stanford Mays Other Providers: Stacie Lutz ; Tina Tobias
== END 2022-03-30 16:08 | disposition home or self-care (01) | DRG 442 ==
LOC: ED 13:14 → SUATTDRO 18:36 → EDINP 18:36 → 2N 03-29 11:00

== ENCOUNTER 2023-08-27 14:57 | Observation (INO) ==
--- NOTE | 2023-08-27 15:04 | ED Triage Note ---
Date of Service August 27, 2023 History of Present Illness This patient was briefly evaluated while in triage. An abbreviated physical exam was performed. This patient is a 58-year-old Male who presents to the ED for evaluation of Mcmillan catheter pain. Patient reports that he has had some blood in his stool after getting home. He has not noticed any blood in the leg bag. The patient was seen here this morning for urinary retention, with Mcmillan catheter placement. Patient denies any significant discomfort. Physical Exam CONSTITUTIONAL: Healthy and well nourished. Patient appears in moderate discomfort. GASTROINTESTINAL: Bowel sounds present in all quadrants. Patient has mild tenderness to palpation of the lower abdomen. HEMATOLOGIC: No ecchymosis or petechiae. Urine bag does show dark urine without obvious blood or clots. PSYCHIATRIC: Positive affect. NEUROLOGIC: No focal neurologic deficits noted. Initial orders for labs and / or imaging were placed and patient was placed in the waiting area until a bed is available. Please see further documentation for the full ED course.
--- NOTE | 2023-08-27 15:48 | Emergency Department Note ---
Impression & Plan BERT (acute kidney injury), Acute urinary retention, Acute hyponatremia ED Provider Note HISTORY OF PRESENT ILLNESS: Patient is a 58-year-old male presenting with Sahu catheter complication. Patient was here this morning and had a Sahu catheter placed. He states that he noticed a drop of blood in the toilet after having a bowel movement. He states that he also had wet underwear and pants after getting up from the commode, and noticed that urine was leaking down the Sahu catheter tubing. He does note that urine has been draining into the bag. Denies any abdominal pain. Patient reports that he had presented earlier today because he felt like she had to urinate and was unable to. He was found to have about 200 cc of urine in his bladder and a Sahu catheter was placed ROS: as above PHYSICAL EXAM: Constitutional: Patient appears in no acute distress. HENT: Head: Normocephalic and atraumatic. Eyes: EOMI, PERRL Mouth/Throat: Mucous membranes moist. Neck: Trachea midline. Neck supple. Cardiovascular: RRR, No murmurs, rubs or gallops. Intact distal pulses. Pulmonary/Chest: No respiratory distress. Breath sounds clear and equal bilaterally. No wheezes or rales. Abdominal: Abdomen soft, no tenderness, rebound or guarding. : Sahu catheter in place. No obvious blood at the urethral meatus. No leakage of urine present. Patient's leg bag is strapped to his right leg and is draining yellow-colored urine Musculoskeletal: No edema, tenderness or deformity noted. Skin: Warm and dry. No rash, erythema, pallor or cyanosis Psychiatric: Appropriate mood and affect for situation. Neurological: Alert and keenly responsive. CN II-XII grossly intact, moving all extremities equally and fully. MDM: - Vitals signs showed tachycardia. - History obtained via patient. Patient presents with Sahu catheter complication. Patient had a Sahu catheter placed after having some urinary retention. He states that he went home today and noticed feeling up from the commode and noticed urine leaking down the Sahu catheter tubing. He did note urine draining into the bag. Denies any abdominal pain. - Chronic conditions affecting care: HTN; HLD; DM-2; GONZALES cirrhosis - Differential diagnoses include, but are not limited to: Catheter dislodgment; catheter complication - Order placed for continuous cardiac monitoring. At this time, monitor showed rate of 100 bpm with normal sinus rhythm, per my interpretation. - External medical records reviewed. Documentation from earlier was reviewed. Patient was noted at 200 cc of urine in his bladder, prompting Sahu placement. - Patient has no evidence of urine leaking from his Sahu at this time. Nursing attempted to flush the Sahu and did note liquid was leaking around the tubing. Patient was also complaining of significant pain. Nursing took that Sahu catheter out and replaced it, but no urine is draining into the bag at this time the patient is complaining of significant pain. - CT abdomen/pelvis wo contrast negative for acute pathology. No acute cause for patient's urinary retention - but bladder appears decompressed on CT scan. - On reassessment, the patient is complaining of significant suprapubic abdominal pain - Laboratory workup interpreted by myself showed normal WBC; hyponatremia (Na 129); BERT (Cr 1.26 - baseline 0.9); hypocalcemia (Ca 8.5); elevated AST (59) - UA negative for bacteria, but noted to have RBCs and WBCs. - Patient's sahu was removed. Patient reports improvement in his suprapubic pain and penile pain. He did have a bladder scan after about 200 cc of urine and he tried to spontaneously void with very minimal urinary output. - Given 1L NS in ER. - Discussion was had with social service agency director about patient's case and need for admission - Hospitalist consulted for admission - [facility] ASSESSMENT AND PLAN: Diagnosis: BERT; hyponatremia; urinary retention Plan: admit Past Med/Surg History Medical History Acute hepatic encephalopathy Anaplasmosis 2019 Cardiac murmur HX Diabetes mellitus, type 2 Fracture of rib of right side 2013 Gout Hyperlipidemia Hyperlipidemia Hypertension 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 Right rib fracture Thrombocytopenia Surgical History History of colonoscopy Family History Mother History of colonoscopy Brother Family history of diabetes mellitus Brother Family history of diabetes mellitus Grandmother (Paternal) Family history of diabetes mellitus Social History (Reviewed 03/28/22 @ 20:19 by CARIDAD Hillman Smoking Status: Former smoker Tobacco Type: Cigarettes Second Hand Exposure: No; Do You Dip or Chew Tobacco: No; Hx Alcohol Use: No Hx Substance Use: Yes Preferred Language: Nigerian Communication Ability: Effective Invoice Coder Required: No Beliefs That Will Affect Care: None marital status: Single Current Living Situation: Family Current Living Situation Comment: Mother, brother Feels Safe at Home: Yes Assistive Devices: None Allergies Allergies Allergy/AdvReac Type Severity Reaction Status Date / Time aspirin Allergy Intermediate NOSE Verified 08/27/23 11:18 BLEEDS--IF TAKES REGULARLY Home Meds Home Medications Medication Instructions Recorded Confirmed allopurinol 300 mg tablet 300 mg PO QAM 06/03/19 08/27/23 lisinopril 5 mg tablet 5 mg PO QAM 06/03/19 08/27/23 metformin 500 mg tablet 500 mg PO BIDM 06/03/19 08/27/23 multivitamin 1 tab PO QAM 06/03/19 08/27/23 omeprazole 20 mg capsule,delayed 20 mg PO DAILYBB 06/03/19 08/27/23 release pioglitazone 30 mg tablet (Actos) 30 mg PO QAM 06/03/19 08/27/23 atorvastatin 20 mg tablet 20 mg PO QAM 04/21/21 08/27/23 glimepiride 1 mg tablet 1 mg PO QDB 01/13/22 08/27/23 ascorbic acid (vitamin C) 1,000 mg 1 g PO QAM 08/27/23 08/27/23 tablet (Vitamin C) carvedilol 6.25 mg tablet 6.25 mg PO BID 08/27/23 08/27/23 meloxicam 15 mg tablet 15 mg PO DAILY PRN Pain 08/27/23 08/27/23 Previous Rx's Medication Instructions Recorded furosemide 20 mg tablet 20 mg PO QAM #30 tabs 03/30/22 lactulose 20 gram/30 mL oral 45 g (67.5 mL) PO TID Cirrhosis 30 03/30/22 solution days #3,000 mL rifaximin 550 mg tablet 550 mg PO BID #180 tabs 03/30/22 tamsulosin 0.4 mg capsule 0.4 mg PO DAILY #14 caps 08/27/23 Results & Data (ED) Vital Signs Vital Signs - 24 hr 08/27/23 14:58 08/27/23 19:00 Temperature 36.5 C Temperature Source Temporal Artery Scan Pulse Rate 104 H Pulse Rate [Finger] 98 H Respiratory Rate 18 18 Respiratory Effort / Characteristics Non-Labored Spontaneous Non-Labored Spontaneous Respiratory Depth Normal Normal Blood Pressure 110/69 Blood Pressure [Right Arm] 116/66 Blood Pressure Mean 82 Blood Pressure Mean [Right Arm] 82 Pulse Oximetry 99 99 Oxygen Delivery Method Room Air Room Air Sepsis New/Unexplained Change in Mental Status No Sepsis Action Taken by Nursing No Action Required Laboratory Data 08/27/23 18:15 08/27/23 18:15 Lab Results 08/27/23 08/27/23 08/27/23 Range/Units 18:15 18:15 18:56 WBC 5.94 (4.8-10.8) K/ul RBC 2.99 L (4.70-6.10) M/uL Hgb 11.1 L (14.0-18.0) g/dl Hct 30.2 L (42.0-52.0) % MCV 101.0 H (80.0-100.0) fL MCH 37.1 H (25.0-34.0) pg MCHC 36.8 H (32.0-36.0) g/dL RDW Std Deviation 59.7 H (36.4-46.3) fL RDW Coeff of [place] 16.0 H (11.5-14.5) % Plt Count 62 L (130-400) K/uL MPV 12.2 (9.4-12.4) fL Immature Gran % (Auto) 0.2 % Neut % (Auto) 76.1 % Lymph % (Auto) 8.1 % [place] % (Auto) 14.6 % Eos % (Auto) 0.5 % Baso % (Auto) 0.5 % Neut # (Auto) 4.52 (1.40-6.50) K/uL Lymph # (Auto) 0.48 L (1.20-3.40) K/uL [place] # (Auto) 0.87 H (0.11-0.59) K/uL Eos # (Auto) 0.03 (0.00-0.50) K/uL Baso # (Auto) 0.03 (0.00-0.20) K/uL Immature Gran # (Auto) 0.01 (0.01-0.20) K/uL Sodium 129 L (136-145) mmol/L Potassium 4.0 (3.5-5.1) mmol/L Chloride 102 (98-107) mmol/L Carbon Dioxide 20 L (21-32) mmol/L Anion Gap 7 (3-11) BUN 21 (6-23) mg/dl Creatinine 1.26 (0.6-1.4) mg/dl Est Cr Clr Drug Dosing 86.3 ml/min Est GFR ( Amer) 71.9 ml/min Est GFR (Non-Af Amer) 62.0 ml/min BUN/Creatinine Ratio 16.7 (10-20) Glucose 170 H (70-99(Fasting)) mg/dl Calcium 8.5 L (8.6-10.3) mg/dl Total Bilirubin 4.3 H (0.2-1.0) mg/dl AST 59 H (13-39) U/L ALT 31 (7-52) U/L Alkaline Phosphatase 113 H (34-104) U/L Total Protein 6.6 (6.0-8.3) gm/dl Albumin 2.5 L (3.4-5.0) gm/dl Globulin 4.1 H (2.5-4.0) gm/dl Albumin/Globulin Ratio 0.6 L (0.9-2) Urine Color [place] Urine Appearance Clear (Clear) Urine pH 5.5 (4.5-7.5) Ur Specific [place] 1.027 (1.000-1.030) Urine Protein 1+ H (Negative) Urine Glucose (UA) Negative (Negative) Urine Ketones Trace H (Negative) Urine Blood 3+ H (Negative) Urine Nitrite Negative (Negative) Urine Bilirubin Negative (Negative) Urine Urobilinogen Negative (Negative) Ur Leukocyte Esterase 1+ H (Negative) Urine WBC (Auto) 5-10 H (0-5) /hpf Urine RBC (Auto) 5-10 H (0-4) /hpf U Hyaline Cast (Auto) 1-5 (0-5) /lpf U Epithel Cells (Auto) 10-20 H (0-5) /lpf Urine Bacteria (Auto) Negative (Negative) Administered Medications Sodium Chloride (Nss) 1,000 mls @ 999 mls/hr IV .Q1H1M ONE Stop: 08/27/23 20:06 Last Admin: 08/27/23 19:20 Dose: 999 mls/hr Documented By: MMG Imaging Data Radiologist's Impression: Abdomen/Pelvis CT 08/27/23 17:[address] WITHOUT CONTRAST CT DOSE: 1591.82 mGy.cm HISTORY: Acute lower abdominal pain with urinary retention lower abdominal pain; urinary retention TECHNIQUE: Multiaxial CT images of the abdomen and pelvis were performed without contrast. A dose lowering technique was utilized adhering to the principles of ALARA. COMPARISON STUDY: 04/22/2021 FINDINGS: Small left pleural effusion. Mild left basilar atelectasis. No free air. Splenomegaly. Unremarkable pancreas and adrenal glands. Mildly distended gallbladder with wall thickening. Abdominal varicosities with cirrhotic liver. Calcified 3.1 cm lesion of the posterior right hepatic lobe is new from prior. Nonspecific bilateral perinephric stranding. There are a few nonobstructing right greater than left bilateral renal calculi measuring up to approximately 2 mm. No ureteral calculi or hydronephrosis. Decompressed or new bladder with Sahu catheter. Atherosclerosis of the aorta. No bowel obstruction or bowel wall thickening. Small to moderate abdominal pelvic ascites. Mild wall thickening with partial distention of the cecum and ascending colon. Normal appendix. Small fat and fluid filled umbilical hernia. Anasarca. Chronic right-sided pars defect. No acute fracture. IMPRESSION: 1. No bowel obstruction or pneumoperitoneum. 2. Cirrhosis with stigmata of portal venous hypertension including splenomegaly with abdominal varicosities and ascites. 3. There is a new 3 cm calcified focus within the right hepatic lobe. 4. Small left pleural effusion. 5. Nonobstructing bilateral nephrolithiasis. 6. Additional findings as above. ACT 112: Negative or not required by law. The above report was generated using voice recognition software. It may contain grammatical, syntax or spelling errors. Electronically signed by: Alfredo Thornton M.D. 08/27/2023 6:23 PM Discharge Plan Visit Data Chief Complaint: Catheter Replacement Stated Complaint: CATHETER PUT IN 2 HOURS AGO, PEEING BLOOD/PAIN ED Provider: Miracle Jacobsen Discharge Problem: BERT (acute kidney injury), Acute urinary retention, Acute hyponatremia Forms Stand Alone Forms: [facility] Prescriptions Prescriptions: No Action metformin 500 mg Tablet 500 mg PO BIDM omeprazole 20 mg Capsule,Delayed Release(Dr/Ec) 20 mg PO DAILYBB allopurinol 300 mg Tablet 300 mg PO QAM lisinopril 5 mg Tablet 5 mg PO QAM pioglitazone [Actos] 30 mg Tablet 30 mg PO QAM multivitamin Tablet 1 tab PO QAM atorvastatin 20 mg tablet 20 mg PO QAM glimepiride 1 mg tablet 1 mg PO QDB rifaximin 550 mg tablet 550 mg PO BID Qty: 180 2RF furosemide 20 mg tablet 20 mg PO QAM Qty: 30 0RF lactulose 20 gram/30 mL solution 45 g PO TID 30 Days Qty: 3000 0RF Rx Instructions: Adjust dose up or down to maintain 3-4 loose BMs per day carvedilol 6.25 mg tablet 6.25 mg PO BID Rx Instructions: take with food ascorbic acid (vitamin C) [Vitamin C] 1,000 mg Tablet 1 g PO QAM meloxicam 15 mg Tablet 15 mg PO DAILY PRN (Reason: Pain) tamsulosin 0.4 mg capsule 0.4 mg PO DAILY Qty: 14 0RF Referrals Referrals: Stanford Mays MD [Primary Care Provider] -
--- NOTE | 2023-08-27 18:26 | CT Scan Report ---
ABDOMEN AND PELVIS CT WITHOUT CONTRAST CT DOSE: 1591.82 mGy.cm HISTORY: Acute lower abdominal pain with urinary retention lower abdominal pain; urinary retention TECHNIQUE: Multiaxial CT images of the abdomen and pelvis were performed without contrast. A dose lo wering technique was utilized adhering to the principles of ALARA. COMPARISON STUDY: 04/22/2021 FINDINGS: Small left pleural effusion. Mild left basilar atelectasis. No free air. Splenomegaly. Unre markable pancreas and adrenal glands. Mildly distended gallbladder with wall thickening. Abdominal va ricosities with cirrhotic liver. Calcified 3.1 cm lesion of the posterior right hepatic lobe is new f rom prior. Nonspecific bilateral perinephric stranding. There are a few nonobstructing right greater than left bilateral renal calculi measuring up to approximately 2 mm. No ureteral calculi or hydronep hrosis. Decompressed or new bladder with Mcmillan catheter. Atherosclerosis of the aorta. No bowel obstruction or bowel wall thickening. Small to moderate abdomi nal pelvic ascites. Mild wall thickening with partial distention of the cecum and ascending colon. No rmal appendix. Small fat and fluid filled umbilical hernia. Anasarca. Chronic right-sided pars defect . No acute fracture. IMPRESSION: 1. No bowel obstruction or pneumoperitoneum. 2. Cirrhosis with stigmata of portal venous hypertension including splenomegaly with abdominal varico sities and ascites. 3. There is a new 3 cm calcified focus within the right hepatic lobe. 4. Small left pleural effusion. 5. Nonobstructing bilateral nephrolithiasis. 6. Additional findings as above. ACT 112: Negative or not required by law. The above report was generated using voice recognition software. It may contain grammatical, syntax o r spelling errors. Electronically signed by: Alfredo Thornton M.D. 08/27/2023 6:23 PM
[2023-08-27 18:44] LABS: Basophils # (auto) 0.03 K/uL (0.00-0.20); Basophils % (auto) 0.5 %; Eosinophils # (auto) 0.03 K/uL (0.00-0.50); Eosinophils % (auto) 0.5 %; Hematocrit (blood only) 30.2 % (42.0-52.0); Hemoglobin 11.1 g/dl (14.0-18.0); Immature Granulocytes # (auto) 0.01 K/uL (0.01-0.20); Immature Granulocytes % (auto) 0.2 %; Lymphocytes # (auto) 0.48 K/uL (1.20-3.40); Lymphocytes % (auto) 8.1 %; Mean Corpuscular Hemoglobin 37.1 pg (25.0-34.0); Mean Corpuscular Hgb Conc 36.8 g/dL (32.0-36.0); Mean Platelet Volume 12.2 fL (9.4-12.4); Monocytes # (auto) 0.87 K/uL (0.11-0.59); Monocytes % (auto) 14.6 %; Neutrophils # (auto) 4.52 K/uL (1.40-6.50); Neutrophils % (auto) 76.1 %; Platelet Count 62 K/uL (130-400); RDW Standard Deviation 59.7 fL (36.4-46.3); Red Blood Count 2.99 M/uL (4.70-6.10); White Blood Count 5.94 K/ul (4.8-10.8)
[2023-08-27 19:04] LABS: Albumin Globulin Ratio 0.6 (0.9-2); Albumin Level 2.5 gm/dl (3.4-5.0); BUN Creatinine Ratio 16.7 (10-20); Bilirubin,Total 4.3 mg/dl (0.2-1.0); Calcium 8.5 mg/dl (8.6-10.3); Creatinine Clr Calc Pharmacy 86.3 ml/min; Est GFR (African American) 71.9 ml/min; Globulin 4.1 gm/dl (2.5-4.0); Total Protein 6.6 gm/dl (6.0-8.3)
[2023-08-27] MEDS ORDERED: SODIUM CHLORIDE 0.9% 1,000 ML IV ONE (19:06)
[2023-08-27 19:16] LABS: Appearance Urine Clear (Clear); Bacteria Urine Automated Negative (Negative); Bilirubin Urine Negative (Negative); Blood Urine 3+ (Negative); Color Urine Orange; Glucose Urine UA Negative (Negative); Ketones Urine Trace (Negative); Leukocyte Esterase Urine 1+ (Negative); Nitrite Urine Negative (Negative); Protein Urine 1+ (Negative); Specific Gravity Urine 1.027 (1.000-1.030); Urobilinogen Urine Negative (Negative); pH Urine 5.5 (4.5-7.5)
--- NOTE | 2023-08-27 20:43 | History & Physical Report ---
Date of Service August 27, 2023 Assessment & Plan (1) Acute urinary retention: Plan: 58-year-old male with past med history significant for type 2 diabetes, hyperlipidemia, chronic idiopathic gout, hepatic encephalopathy, hypertension, moderate aortic stenosis, liver cirrhosis, diverticulosis of colon, thrombocytopenia presented to the ER in the morning because he was not able to micturate and found to have urinary retention and was placed Mcmillan and discharg ed home and was also started on Flomax but comes back because of having lot abdominal pain and the Mcmillan was leaking. In the ER Mcmillan was changed but still it was leaking and also had small hematuria and having a lot of pain so the Mcmillan was removed again. Acute urinary retention Mcmillan was placed in the morning but comes back as it is leaking and having lot of pain. ER had tried to replace the Mcmillan but still it was leaking and having abdominal pain so it was removed again Flomax was started which we will continued We will do bladder scans and straight cath as needed for now Urology consult in a.m. Hyponatremia Sodium 129 Getting gentle fluids Follow labs in a.m. UTI? empiric Rocephin for now will follow cultures. History of Wells liver cirrhosis History of hepatic encephalopathy in the past On lactulose and rifaximin and Lasix elevated bilirubin We will monitor Thrombocytopenia From cirrhosis Follow labs History of gout On allopurinol History of diabetes Hold home p.o. medications Insulin sliding scale We will follow blood sugars and HbA1c levels History of moderate aortic stenosis Monitor for volume overload Hyperlipidemia Statin Hepatic lesions Hepatocellular carcinoma S/p IR embolization follow-up DVT prophylaxis SCDs Disposition Med/telemetry Full code History of Present Illness Chief Complaint: Urinary retention Primary Care Provider: Stanford Mays MD 58-year-old male with past med history significant for type 2 diabetes, hyperlipidemia, chronic idiopathic gout, hepatic encephalopathy, hypertension, moderate aortic stenosis, liver cirrhosis, diverticulosis of colon, thrombocytopenia presented to the ER in the morning because he was not able to micturate and found to have urinary retention and was placed Mcmillan and discharged home and was also started on Flomax but comes back because of having lot abdominal pain and the Mcmillan was leaking. In the ER Mcmillan was changed but still it was leaking and also had small hematuria and having a lot of pain so the Mcmillan was removed again. Currently abdominal pain is better. says he has chronic bloating. Did not move his bowels today. Takes lactulose. Denies any chest pain or shortness of breath. No nausea or vomiting. Currently no headache. Vision is okay. Currently no earache or runny nose or sore throat. Today morning had some sore throat but that got resolved. Denies any fevers. Currently resting comfortably and hemodynamic stable. Past med history. As mentioned above Past surgical history. Colonoscopy. EGD. IR cancer embolization. Social history. Quit smoking 2004. Chews tobacco. No alcohol use. No drug use. Family history. Mother had colon cancer. Hypertension. Brother had irritable bowel syndrome. Sleep apnea. Diabetes. Cancer. Allergies Allergy/AdvReac Type Severity Reaction Status Date / Time aspirin Allergy Intermediate NOSE Verified 08/27/23 11:18 BLEEDS--IF TAKES REGULARLY Home Medications Medication Instructions Recorded Confirmed Type allopurinol 300 mg tablet 300 mg PO QAM 06/03/19 08/27/23 History lisinopril 5 mg tablet 5 mg PO QAM 06/03/19 08/27/23 History metformin 500 mg tablet 500 mg PO BIDM 06/03/19 08/27/23 History multivitamin 1 tab PO QAM 06/03/19 08/27/23 History omeprazole 20 mg capsule,delayed 20 mg PO DAILYBB 06/03/19 08/27/23 History release pioglitazone 30 mg tablet (Actos) 30 mg PO QAM 06/03/19 08/27/23 History atorvastatin 20 mg tablet 20 mg PO QAM 04/21/08/27/23 History glimepiride 1 mg tablet 1 mg PO QDB 01/13/22 08/27/23 History furosemide 20 mg tablet 20 mg PO QAM #30 tabs 03/30/22 08/27/23 Rx lactulose 20 gram/30 mL oral 45 g (67.5 mL) PO TID Cirrhosis 30 03/30/22 1 Rx solution days #3,000 mL rifaximin 550 mg tablet 550 mg PO BID #180 tabs 03/30/22 08/27/23 Rx ascorbic acid (vitamin C) 1,000 mg 1 g PO QAM 08/27/23 08/27/23 History tablet (Vitamin C) carvedilol 6.25 mg tablet 6.25 mg PO BID 08/27/23 08/27/23 History meloxicam 15 mg tablet 15 mg PO DAILY PRN Pain 08/27/23 08/27/23 History tamsulosin 0.4 mg capsule 0.4 mg PO DAILY #14 caps 08/27/23 08/27/23 Rx Past Med/Surg History Medical History Acute hepatic encephalopathy Anaplasmosis 2020 Cardiac murmur HX Diabetes mellitus, type 2 Fracture of rib of right side 2013 Gout Hyperlipidemia Hyperlipidemia Hypertension Liver cirrhosis secondary to WELLS Right rib fracture Thrombocytopenia Surgical History History of colonoscopy Family History Mother History of colonoscopy Brother Family history of diabetes mellitus Brother Family history of diabetes mellitus Grandmother (Paternal) Family history of diabetes mellitus Social History Smoking Status: Former smoker Tobacco Type: Cigarettes and Smokeless Tobacco (Dip or Chew) Second Hand Exposure: No; Do You Dip or Chew Tobacco: No (previously quit 20 years ago); Tobacco Cessation Education Requested by Patient: No Hx Alcohol Use: No Hx Substance Use: No Preferred Language: Dutch Communication Ability: Effective Bait Packer Required: Yes and No Beliefs That Will Affect Care: None marital status: Single Current Living Situation: Alone and Family Current Living Situation Comment: mom and daughter live with him Other Information That Helps Us Care for You: No Feels Safe at Home: Yes Assistive Devices: None Review of Systems Review of Systems: All systems reviewed & are unremarkable except as noted in HPI & below Physical Exam Physical Exam: General- Not in distress. Head- atraumatic Eyes- PERRL. ENT- oropharynx clear Neck- supple, no JVD. Lungs- clear to auscultation . No wheezing or crackles. Heart- regular rhythm; no murmur, no gallop. Abdomen- normal bowel sounds, soft, nontender, no distension. Extremities- trace pretibial edema, no erythema seen. Neuro- alert, oriented x 3; PERRL, no facial palsy; no dysarthria; moves extremities. Skin- warm & dry Results & Data Results & Data Vital Signs (Past 12 Hours) Vital Signs Temp Pulse Pulse Resp BP BP Pulse Ox 08/27/23 19:00 98 H 18 116/66 99 08/27/23 14:58 36.5 C 104 H 18 110/69 99 O2 Del Method 08/27/23 19:00 Room Air 08/27/23 14:58 Room Air Diagnostic Findings Laboratory Results WBC 5.94 K/ul (4.8-10.8) 08/27/23 18:15 RBC 2.99 M/uL (4.70-6.10) L 08/27/23 18:15 Hgb 11.1 g/dl (14.0-18.0) L 08/27/23 18:15 Hct 30.2 % (42.0-52.0) L 08/27/23 18:15 MCV 101.0 fL (80.0-100.0) H 08/27/23 18:15 MCH 37.1 pg (25.0-34.0) H 08/27/23 18:15 MCHC 36.8 g/dL (32.0-36.0) H 08/27/23 18:15 RDW Std Deviation 59.7 fL (36.4-46.3) H 08/27/23 18:15 RDW Coeff of [place] 16.0 % (11.5-14.5) H 08/27/23 18:15 Plt Count 62 K/uL (130-400) L 08/27/23 18:15 MPV 12.2 fL (9.4-12.4) 08/27/23 18:15 Immature Gran % (Auto) 0.2 % 08/27/23 18:15 Neut % (Auto) 76.1 % 08/27/23 18:15 Lymph % (Auto) 8.1 % 08/27/23 18:15 Williams % (Auto) 14.6 % 08/27/23 18:15 Eos % (Auto) 0.5 % 08/27/23 18:15 Baso % (Auto) 0.5 % 08/27/23 18:15 Neut # (Auto) 4.52 K/uL (1.40-6.50) 08/27/23 18:15 Lymph # (Auto) 0.48 K/uL (1.20-3.40) L 08/27/23 18:15 Williams # (Auto) 0.87 K/uL (0.11-0.59) H 08/27/23 18:15 Eos # (Auto) 0.03 K/uL (0.00-0.50) 08/27/23 18:15 Baso # (Auto) 0.03 K/uL (0.00-0.20) 08/27/23 18:15 Immature Gran # (Auto) 0.01 K/uL (0.01-0.20) 08/27/23 18:15 Sodium 129 mmol/L (136-145) L 08/27/23 18:15 Potassium 4.0 mmol/L (3.5-5.1) 08/27/23 18:15 Chloride 102 mmol/L (98-107) 08/27/23 18:15 Carbon Dioxide 20 mmol/L (21-32) L 08/27/23 18:15 Anion Gap 7 (3-11) 08/27/23 18:15 BUN 21 mg/dl (6-23) 08/27/23 18:15 Creatinine 1.26 mg/dl (0.6-1.4) 08/27/23 18:15 Est Cr Clr Drug Dosing 86.3 ml/min 08/27/23 18:15 Est GFR ( Amer) 71.9 ml/min 08/27/23 18:15 Est GFR (Non-Af Amer) 62.0 ml/min 08/27/23 18:15 BUN/Creatinine Ratio 16.7 (10-20) 08/27/23 18:15 Glucose 170 mg/dl (70-99(Fasting)) H 08/27/23 18:15 Calcium 8.5 mg/dl (8.6-10.3) L 08/27/23 18:15 Total Bilirubin 4.3 mg/dl (0.2-1.0) H 08/27/23 18:15 AST 59 U/L (13-39) H 08/27/23 18:15 ALT 31 U/L (7-52) 08/27/23 18:15 Alkaline Phosphatase 113 U/L (34-104) H 08/27/23 18:15 Ammonia 46.0 umol/L (18-72) 08/27/23 18:15 Total Protein 6.6 gm/dl (6.0-8.3) 08/27/23 18:15 Albumin 2.5 gm/dl (3.4-5.0) L 08/27/23 18:15 Globulin 4.1 gm/dl (2.5-4.0) H 08/27/23 18:15 Albumin/Globulin Ratio 0.6 (0.9-2) L 08/27/23 18:15 Urine Color [place] 08/27/23 18:56 Urine Appearance Clear (Clear) 08/27/23 18:56 Urine pH 5.5 (4.5-7.5) 08/27/23 18:56 Ur Specific [place] 1.027 (1.000-1.030) 08/27/23 18:56 Urine Protein 1+ (Negative) H 08/27/23 18:56 Urine Glucose (UA) Negative (Negative) 08/27/23 18:56 Urine Ketones Trace (Negative) H 08/27/23 18:56 Urine Blood 3+ (Negative) H 08/27/23 18:56 Urine Nitrite Negative (Negative) 08/27/23 18:56 Urine Bilirubin Negative (Negative) 08/27/23 18:56 Urine Urobilinogen Negative (Negative) 08/27/23 18:56 Ur Leukocyte Esterase 1+ (Negative) H 08/27/23 18:56 Urine WBC (Auto) 5-10 /hpf (0-5) H 08/27/23 18:56 Urine RBC (Auto) 5-10 /hpf (0-4) H 08/27/23 18:56 U Hyaline Cast (Auto) 1-5 /lpf (0-5) 08/27/23 18:56 U Epithel Cells (Auto) 10-20 /lpf (0-5) H 08/27/23 18:56 Urine Bacteria (Auto) Negative (Negative) 08/27/23 18:56 Impressions Abdomen/Pelvis CT 08/27/23 17:[address] WITHOUT CONTRAST CT DOSE: 1591.82 mGy.cm HISTORY: Acute lower abdominal pain with urinary retention lower abdominal pain; urinary retention TECHNIQUE: Multiaxial CT images of the abdomen and pelvis were performed without contrast. A dose lowering technique was utilized adhering to the principles of ALARA. COMPARISON STUDY: 04/22/2021 FINDINGS: Small left pleural effusion. Mild left basilar atelectasis. No free air. Splenomegaly. Unremarkable pancreas and adrenal glands. Mildly distended gallbladder with wall thickening. Abdominal varicosities with cirrhotic liver. Calcified 3.1 cm lesion of the posterior right hepatic lobe is new from prior. Nonspecific bilateral perinephric stranding. There are a few nonobstructing right greater than left bilateral renal calculi measuring up to approximately 2 mm. No ureteral calculi or hydronephrosis. Decompressed or new bladder with F oley catheter. Atherosclerosis of the aorta. No bowel obstruction or bowel wall thickening. Small to moderate abdominal pelvic ascites. Mild wall thickening with partial distention of the cecum and ascending colon. Normal appendix. Small fat and fluid filled umbilical hernia. Anasarca. Chronic right-sided pars defect. No acute fracture. IMPRESSION: 1. No bowel obstruction or pneumoperitoneum. 2. Cirrhosis with stigmata of portal venous hypertension including splenomegaly with abdominal varicosities and ascites. 3. There is a new 3 cm calcified focus within the right hepatic lobe. 4. Small left pleural effusion. 5. Nonobstructing bilateral nephrolithiasis. 6. Additional findings as above. ACT 112: Negative or not required by law. The above report was generated using voice recognition software. It may contain grammatical, syntax or spelling errors. Electronically signed by: Alfredo Thornton M.D. 08/27/2023 6:23 PM Code Status & VTE Plan VTE Prophylaxis Plan VTE Prophylaxis will be ordered: Yes
[2023-08-27] MEDS ORDERED: NITROGLYCERIN SL 0.4 MG/TAB TAB SL PRN (22:41)
[2023-08-27] MEDS ORDERED: GLUCOSE 10 TAB/TUBE PO PRN (22:41)
[2023-08-27] MEDS ORDERED: CARBOHYDRATES FOR HYPOGLYCEMIA PO PRN (22:41)
[2023-08-27] MEDS ORDERED: DEXTROSE 50% 50 ML SYRINGE IV PRN (22:41)
[2023-08-27] MEDS ORDERED: GLUCOSE 40% GEL 15 GM TUBE PO PRN (22:41)
[2023-08-27] MEDS ORDERED: GLUCAGON FOR INJ 1 MG VIAL SQ PRN (22:41)
[2023-08-27] MEDS ORDERED: SODIUM CHLORIDE 0.9% 1,000 ML IV SCH (22:41)
[2023-08-27] MEDS: INSULIN ASPART PER UNIT CHARGE SC SCH (23:21)
[2023-08-27] MEDS: LACTULOSE SYRUP 30 GM/45 ML UDP PO SCH (23:25)
[2023-08-27] MEDS: carvediloL 6.25 MG TAB PO SCH (23:27)
[2023-08-27] MEDS: rifAXIMin 550 MG TABLET PO SCH (23:27)
[2023-08-28] MEDS: PANTOprazole 40 MG TAB PO SCH (05:35)
[2023-08-28 06:16] LABS: BUN Creatinine Ratio 18.3 (10-20); Calcium 7.8 mg/dl (8.6-10.3); Creatinine Clr Calc Pharmacy 99.9 ml/min; Est GFR (African American) 85.7 ml/min; Est GFR (Non-African American) 73.9 ml/min; Magnesium 1.6 mg/dl (1.7-2.4); Potassium 3.9 mmol/L (3.5-5.1)
[2023-08-28 06:18] LABS: Basophils # (auto) 0.06 K/uL (0.00-0.20); Basophils % (auto) 1.1 %; Eosinophils # (auto) 0.14 K/uL (0.00-0.50); Eosinophils % (auto) 2.6 %; Hemoglobin 9.4 g/dl (14.0-18.0); Immature Granulocytes # (auto) 0.02 K/uL (0.01-0.20); Immature Granulocytes % (auto) 0.4 %; Lymphocytes # (auto) 0.53 K/uL (1.20-3.40); Lymphocytes % (auto) 9.7 %; Mean Corpuscular Hemoglobin 36.6 pg (25.0-34.0); Mean Corpuscular Hgb Conc 36.2 g/dL (32.0-36.0); Mean Corpuscular Volume 101.2 fL (80.0-100.0); Mean Platelet Volume 10.9 fL (9.4-12.4); Monocytes # (auto) 0.99 K/uL (0.11-0.59); Monocytes % (auto) 18.2 %; Platelet Count 47 K/uL (130-400); RDW Coefficient of Variation 16.1 % (11.5-14.5); RDW Standard Deviation 59.2 fL (36.4-46.3); Red Blood Count 2.57 M/uL (4.70-6.10); White Blood Count 5.44 K/ul (4.8-10.8)
[2023-08-28] MEDS: cefTRIAXone SODIUM 2,000 MG in DEXTROSE 5 % MINI-B 50 ML IV SCH (07:35)
--- NOTE | 2023-08-28 07:53 | Hospitalist Progress Note ---
Date of Service August 28, 2023 Assessment & Plan (1) Acute urinary retention: Plan: 58-year-old male with past med history significant for type 2 diabetes, hyperlipidemia, chronic idiopathic gout, hepatic encephalopathy, hypertension, moderate aortic stenosis, liver cirrhosis, diverticulosis of colon, thrombocytopenia presented to the ER in the morning because he was not able to micturate and found to have urinary retention and was placed Mcmillan and discharg ed home and was also started on Flomax but comes back because of having lot abdominal pain and the Mcmillan was leaking. In the ER Mcmillan was changed but still it was leaking and also had small hematuria and having a lot of pain so the Mcmillan was removed again. #Acute urinary retention Mcmillan was placed in the morning but comes back as it is leaking and having lot of pain. ER had tried to replace the Mcmillan but still it was leaking and having abdominal pain so it was removed again Flomax was started which we will continued We will do bladder scans and straight cath as needed for now Urology consult in a.m. #Hyponatremia *improving Sodium 129 Getting gentle fluids Follow labs in a.m. #UTI? empiric Rocephin for now will follow culture #Hepatocellular Carcinoma #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, compensated - History of decompensation, s/p embolization of RHL on 08/02/2023 - MELD-Na:No INR on admission, ordered - Last EGD 07/04/2023: no EV, no evidence of GIB, monitor - Portal hypertension: gastropathy, splenomegaly - PSE: No evidence of HE on exam, c/w lactulose (titrated to 3-4BM / day) Rifaximin 550 BID - Ascites/Peripheral edema: no history of paracentesis, small/moderate acsites on imaging, c/w home Lasix 20mg daily - Coagulopathy: Thrombocytopenia, baseline 60-70s, now 40s iso ?infection - SBP: No evidence of SBP - HRS: No sign of HRS at this time - Daily CMP + INR to calculate MELD; low Na diet #Colonic thickening on exam, cecum #Mildly distended gall bladder, wall thickening -last c-scope 2019: WNL -GI Consult: given recent history of HCC and now cecal wall thickening would like to ensure c-scope inpatient v outpatient #Acute on Chronic Anemia #Acute on Chronic Thrombocytopenia -likely iso of acute urinary retention, trend/hemolysis labs, FIBT -Trend labs, hemolysis labs in am -FOBT #Portal Hypertensive Gastropathy -Continue PPI (home omperazole 20mg) : 40mg Protonix while inpatient #gout -Continue allopurinol #Diabetes Mellitus TypeII Hold home metformin, pioglitazone, glimepiride Insulin sliding scale We will follow blood sugars and HbA1c levels #Hypertension #Moderate aortic stenosis Monitor for volume overload -Continue lisinopril and coreg #Hyperlipidemia Hold statin in interim 2/2 elevated LFTs DVT prophylaxis SCDs Disposition Med/telemetry Full code Admission and Anticipated Discharge Date Admission Date: August 27, 2023 Subjective NAEO Reports voiding spontaneously States that he doesn't like his lactulose at home and is constipated at this time--states there is a different formulation of lactulose that makes hime wretch, ultimately why he isn't compliant Denies dysuria, freuqency or other concerns that preceded the events leading to retention Review of Systems Review of Systems: All systems reviewed & are unremarkable except as noted in Subjective Physical Exam Constitutional: WD/WN, vitals as above Respiratory: normal respiratory effort, lungs clear to auscultation Cardiovascular: RRR, no murmur, no edema Gastrointestinal (Abdomen): protuberant, nontender abdomen; no fluid wave Results & Data Results & Data Vital Signs (Past 12 Hours) Vital Signs Temp Pulse Pulse Resp BP Pulse Ox Pulse Ox 08/28/23 06:51 37.0 C 82 18 102/62 97 08/28/23 06:00 83 08/28/23 03:19 36.4 C L 62 18 158/91 H 94 08/28/23 03:14 37.0 C 84 18 134/78 98 08/27/23 22:33 108 H 08/27/23 22:41 36.4 C L 102 H 20 135/80 99 08/27/23 22:41 99 08/27/23 22:44 08/27/23 22:44 36.4 C L 102 H 20 135/80 99 08/27/23 21:00 99 H 18 117/75 96 O2 Del Method O2 Del Method 08/28/23 06:51 Room Air 08/28/23 06:00 08/28/23 03:19 Room Air 08/28/23 03:14 Room Air 08/27/23 22:33 08/27/23 22:41 Room Air 08/27/23 22:41 Room Air 08/27/23 22:44 Room Air 08/27/23 22:44 Room Air 08/27/23 21:00 Room Air Laboratory Results Short CBC 08/27/23 08/28/23 Range/Units 18:15 05:29 WBC 5.94 5.44 (4.8-10.8) K/ul Hgb 11.1 L 9.4 L (14.0-18.0) g/dl Hct 30.2 L 26.0 L (42.0-52.0) % Plt Count 62 L 47 L (130-400) K/uL BMP 08/27/23 08/28/23 18:15 05:29 Sodium 129 L 130 L Potassium 4.0 3.9 Chloride 102 105 Carbon Dioxide 20 L 22 BUN 21 20 Creatinine 1.26 1.09 Glucose 170 H 139 H Calcium 8.5 L 7.8 L Liver Function 08/27/23 Range/Units 18:15 Total Bilirubin 4.3 H (0.2-1.0) mg/dl AST 59 H (13-39) U/L ALT 31 (7-52) U/L Alkaline Phosphatase 113 H (34-104) U/L Albumin 2.5 L (3.4-5.0) gm/dl Urine 08/27/23 Range/Units 18:56 Urine Color [place] Urine Appearance Clear (Clear) Urine pH 5.5 (4.5-7.5) Ur Specific [place] 1.027 (1.000-1.030) Urine Protein 1+ H (Negative) Urine Glucose (UA) Negative (Negative) Diagnostic Findings FINDINGS: Small left pleural effusion. Mild left basilar atelectasis. No free air. Splenomegaly. Unremarkable pancreas and adrenal glands. Mildly distended gallbladder with wall thickening. Abdominal varicosities with cirrhotic liver. Calcified 3.1 cm lesion of the posterior right hepatic lobe is new from prior. Nonspecific bilateral perinephric stranding. There are a few nonobstructing right greater than left bilateral renal calculi measuring up to approximately 2 mm. No ureteral calculi or hydronephrosis. Decompressed or new bladder with Mcmillan catheter. Atherosclerosis of the aorta. No bowel obstruction or bowel wall thickening. Small to moderate abdominal pelvic ascites. Mild wall thickening with partial distention of the cecum and ascending colon. Normal appendix. Small fat and fluid filled umbilical hernia. Anasarca. Chronic right-sided pars defect. No acute fracture. IMPRESSION: 1. No bowel obstruction or pneumoperitoneum. 2. Cirrhosis with stigmata of portal venous hypertension including splenomegaly with abdominal varicosities and ascites. 3. There is a new 3 cm calcified focus within the right hepatic lobe. 4. Small left pleural effusion. 5. Nonobstructing bilateral nephrolithiasis. 6. Additional findings as above. Medications Administered Home Medications Medication Instructions Recorded Confirmed Last Taken allopurinol 300 mg tablet 300 mg PO QAM 06/03/19 08/27/23 08/26/23 lisinopril 5 mg tablet 5 mg PO QAM 06/03/19 08/27/23 08/26/23 09:00 metformin 500 mg tablet 500 mg PO BIDM 06/03/19 08/27/23 08/26/23 multivitamin 1 tab PO QAM 06/03/19 08/27/23 08/26/23 omeprazole 20 mg capsule,delayed 20 mg PO DAILYBB 06/03/19 08/27/23 08/26/23 09:00 release pioglitazone 30 mg tablet (Actos) 30 mg PO QAM 06/03/19 08/27/23 08/25/23 atorvastatin 20 mg tablet 20 mg PO QAM 04/21/21 08/27/23 08/26/23 glimepiride 1 mg tablet 1 mg PO QDB 01/13/22 08/27/23 08/26/23 furosemide 20 mg tablet 20 mg PO QAM #30 tabs 03/30/22 08/27/23 08/26/23 lactulose 20 gram/30 mL oral 45 g (67.5 mL) PO TID Cirrhosis 30 03/30/22 08/27/23 08/26/23 solution days #3,000 mL rifaximin 550 mg tablet 550 mg PO BID #180 tabs 03/30/22 08/27/23 08/26/23 ascorbic acid (vitamin C) 1,000 mg 1 g PO QAM 08/27/23 08/27/23 Unknown tablet (Vitamin C) carvedilol 6.25 mg tablet 6.25 mg PO BID 08/27/23 08/27/23 Unknown meloxicam 15 mg tablet 15 mg PO DAILY PRN Pain 08/27/23 08/27/23 Unknown tamsulosin 0.4 mg capsule 0.4 mg PO DAILY #14 caps 08/27/23 08/27/23 08/27/23 Active Medications Generic Name Dose Route Start Last Admin Trade Name Capri PRN Reason Stop Dose Admin Carvedilol 6.25 mg 08/27/23 22:41 08/27/23 23:27 Carvedilol 6.25 Mg Tab PO 09/26/23 22:40 6.25 mg BIDM MOODY Administration Sodium Chloride 1,000 mls @ 50 mls/hr 08/27/23 22:41 08/27/23 23:11 Nss IV 09/26/23 22:40 50 mls/hr .Q20H MOODY Administration Magnesium Sulfate/Dextrose 1 gm in 100 mls @ 50 mls/hr 08/28/23 07:00 08/28/23 08:09 Magnesium Sulfate / D5w IV 08/28/23 10:59 50 mls/hr Q2H MOODY Administration Ceftriaxone Sodium 2,000 mg/ 50 mls @ 100 mls/hr 08/28/23 07:00 08/28/23 08:09 Dextrose IV 09/07/23 06:59 Infused Q24H MOODY Infusion Protocol Insulin Aspart 0 units 08/27/23 22:41 08/27/23 23:21 Insulin Aspart Per Unit Charge SC 09/26/23 22:40 1 units ACHS MOODY Administration Lactulose 30 gm 08/27/23 22:41 08/27/23 23:25 Lactulose Syrup 30 Gm/45 Ml Udp PO 09/26/23 22:40 30 gm TID MOODY Administration Pantoprazole Sodium 40 mg 08/28/23 06:30 08/28/23 05:35 Pantoprazole 40 Mg Tab PO 09/27/23 06:29 40 mg DAILYBB MOODY Administration Rifaximin 550 mg 08/27/23 22:41 08/27/23 23:27 Rifaximin 550 Mg Tablet PO 09/26/23 22:40 550 mg BID MOODY Administration
[2023-08-28] MEDS ORDERED: MAGNESIUM SULFATE / D5W 1 GM/100 ML BAG IV SCH (08:00)
[2023-08-28] MEDS: MAGNESIUM SULFATE / D5W 1 GM/100 ML BAG IV SCH ×2 (08:09→09:52)
--- NOTE | 2023-08-28 08:14 | Urology Consultation ---
Date of Consultation August 28, 2023 Assessment & Plan (1) Acute urinary retention: (2) Urinary frequency: Plan 58yo/M with a hx of Wells liver cirrhosis, liver cancer, hepatic encephalopathy who presented with c/o urinary retention and was bladder scanned for approximately 400-500cc and a Mcmillan catheter was placed. He was started on Flomax and discharged home. He returned to the ED due to hematuria, Mcmillan catheter leaking, abdominal pain.The Mcmillan was exchanged in the ED but continued to leak and the patient reported pain/hematuria so the Mcmillan was removed and he was admitted to medicine service. Afebrile and hemodynamically stable. Labs reviewed today -WBC 5.44, hemoglobin 9.4, creatinine 1.09. Urine culture pending. On Ceftriaxone. CT abdomen pelvis reviewed No hydronephrosis or obstruction noted. Bilateral nephrolithiasis. Voiding spontaneously, continue to monitor. PVRs have been acceptable. Urinary retention possibly due to constipation, underlying BPH, etc. Continue to monitor ability to void and symptoms. Bladder scans may be sae ccurate due to ascites. Can consider Mcmillan catheter placement if unable to void for 6-8 hours and/or develops symptoms of urinary retention. Continue supportive care and antibiotic therapy, follow culture. Continue Flomax. Will arrange outpatient follow-up with our service. Urology will follow peripherally. Please contact us with any further questions, concerns, or changes in patient status. History of Present Illness Attending Physician: Autumn Donahue MD History of Present Illness 58-year-old male with a past medical history of Wells liver cirrhosis, liver cancer, hepatic encephalopathy who presented to the emergency department on 08/27/23 for evaluation of urinary frequency, difficulty urinating. Patient was bladder scanned for approximately 400-500cc and a Mcmillan catheter was placed. He was started on Flomax and discharged home in stable condition. He returned to the ED due to hematuria, Mcmillan catheter leaking, abdominal pain.In the ED, the Mcmillan was exchanged but was still leaking and had pain/hematuria so the Mcmillan was removed again. Pt admitted to medicine service for continued care. KUB Impression- 1. No radiographic evidence of constipation. 2. Air-filled loops of large and small bowel may represent an ileus. CT abdomen pelvis- 1. No bowel obstruction or pneumoperitoneum. 2. Cirrhosis with stigmata of portal venous hypertension including splenomegaly with abdominal varicosities and ascites. 3. There is a new 3 cm calcified focus within the right hepatic lobe. 4. Small left pleural effusion. 5. Nonobstructing bilateral nephrolithiasis. 6. Additional findings as above. Patient examined at bedside this AM. Awake, resting in bed on arrival. No acute distress. Reports he is voiding spontaneously without issue. Denies hematuria. Notes some mild dysuria. On Flomax. Denies abdominal, suprapubic, flank pain. Denies fevers, chills, nausea, vomiting. Reports no BM for 2-3 days. At baseline, he denies bothersome urinary symptoms or issues. Nocturia 01. Stream good. Some hesitancy. Denies urgency, frequency. Notes some postvoid dribbling. Denies hematuria/dysuria. He denies a prior history of urinary retention. Denies urological history. Has never seen a urologist. Allergies Allergy/AdvReac Type Severity Reaction Status Date / Time aspirin Allergy Intermediate NOSE Verified 08/27/23 11:18 BLEEDS--IF TAKES REGULARLY Home Medications Medication Instructions Recorded Confirmed Type allopurinol 300 mg tablet 300 mg PO QAM 06/03/19 08/27/23 History lisinopril 5 mg tablet 5 mg PO QAM 06/03/19 08/27/23 History metformin 500 mg tablet 500 mg PO BIDM 06/03/19 08/27/23 History multivitamin 1 tab PO QAM 06/03/19 08/27/23 History omeprazole 20 mg capsule,delayed 20 mg PO DAILYBB 06/03/19 08/27/23 History release pioglitazone 30 mg tablet (Actos) 30 mg PO QAM 06/03/19 08/27/23 History atorvastatin 20 mg tablet 20 mg PO QAM 04/21/21 08/27/23 History glimepiride 1 mg tablet 1 mg PO QDB 01/13/22 08/27/23 History furosemide 20 mg tablet 20 mg PO QAM #30 tabs 03/30/22 08/27/23 Rx lactulose 20 gram/30 mL oral 45 g (67.5 mL) PO TID Cirrhosis 30 03/30/22 08/27/23 Rx solution days #3,000 mL rifaximin 550 mg tablet 550 mg PO BID #180 tabs 03/30/22 08/27/23 Rx ascorbic acid (vitamin C) 1,000 mg 1 g PO QAM 08/27/23 08/27/23 History tablet (Vitamin C) carvedilol 6.25 mg tablet 6.25 mg PO BID 08/27/23 08/27/23 History meloxicam 15 mg tablet 15 mg PO DAILY PRN Pain 08/27/23 08/27/23 History tamsulosin 0.4 mg capsule 0.4 mg PO DAILY #14 caps 08/27/23 08/27/23 Rx Patient History Medical History Acute hepatic encephalopathy Anaplasmosis 2020 Cardiac murmur HX Diabetes mellitus, type 2 Fracture of rib of right side 2013 Gout Hyperlipidemia Hyperlipidemia Hypertension Liver cirrhosis secondary to WELLS Right rib fracture Thrombocytopenia Surgical History History of colonoscopy Family History Mother History of colonoscopy Brother Family history of diabetes mellitus Brother Family history of diabetes mellitus Grandmother (Paternal) Family history of diabetes mellitus Social History Smoking Status: Former smoker Tobacco Type: Cigarettes and Smokeless Tobacco (Dip or Chew) Second Hand Exposure: No; Do You Dip or Chew Tobacco: No (previously quit 20 years ago); Tobacco Cessation Education Requested by Patient: No Hx Alcohol Use: No Hx Substance Use: No Preferred Language: Lebanese Communication Ability: Effective Manager Creative Services Required: Yes and No Beliefs That Will Affect Care: None marital status: Single Current Living Situation: Alone and Family Current Living Situation Comment: mom and daughter live with him Other Information That Helps Us Care for You: No Feels Safe at Home: Yes Assistive Devices: None Review of Systems Review of Systems: All systems reviewed & are unremarkable except as noted in HPI & below Physical Exam Constitutional: well developed and well nourished; no acute distress Neck: normal visual inspection Respiratory: normal respiratory effort; no respiratory distress and no labored breathing Gastrointestinal (Abdomen): Percussion/Palpation: abdomen soft; abdomen nontender Musculoskeletal: Head/Neck/Chest: normocephalic Skin: No visible rashes or lesions to exposed skin areas Neurologic: moves all extremities and awake Psychiatric: A+Ox3, euthymic affect Results & Data Vital Signs (Past 12 Hours) Vital Signs Temp Pulse Pulse Resp BP Pulse Ox Pulse Ox 08/28/23 06:51 37.0 C 82 18 102/62 97 08/28/23 06:00 83 08/28/23 03:19 36.4 C L 62 18 158/91 H 94 08/28/23 03:14 37.0 C 84 18 134/78 98 08/27/23 22:33 108 H 08/27/23 22:41 36.4 C L 102 H 20 135/80 99 08/27/23 22:41 99 08/27/23 22:44 08/27/23 22:44 36.4 C L 102 H 20 135/80 99 08/27/23 21:00 99 H 18 117/75 96 O2 Del Method O2 Del Method 08/28/23 06:51 Room Air 08/28/23 06:00 08/28/23 03:19 Room Air 08/28/23 03:14 Room Air 08/27/23 22:33 08/27/23 22:41 Room Air 08/27/23 22:41 Room Air 08/27/23 22:44 Room Air 08/27/23 22:44 Room Air 08/27/23 21:00 Room Air PG Care Time/CCT Total # of Minutes Spent Total Time Spent with Patient: Total time spent is greater than 50% in coordination of care (as documented) at patient's floor/unit and/or counseling patient: Coding Level of Care Code 20314 IN/OBS CONSULT LVL 3,45M Diagnoses Acute urinary retention R33.8 Urinary frequency R35.0
[2023-08-28 08:22] LABS: Estimated Average Glucose 126 mg/dl
[2023-08-28] MEDS: INSULIN ASPART PER UNIT CHARGE SC SCH ×4 (08:22→21:04)
[2023-08-28] MEDS: carvediloL 6.25 MG TAB PO SCH ×3 (08:23→17:13)
[2023-08-28] MEDS: rifAXIMin 550 MG TABLET PO SCH ×2 (08:29→20:35)
[2023-08-28] MEDS: TAMSULOSIN HCL 0.4 MG CAP PO SCH (08:29)
[2023-08-28] MEDS: ASCORBIC ACID 500 MG TAB PO SCH (08:30)
[2023-08-28] MEDS: LACTULOSE SYRUP 30 GM/45 ML UDP PO SCH ×3 (08:30→20:36)
[2023-08-28] MEDS: MULTIVITAMIN TAB PO SCH (08:30)
[2023-08-28] MEDS: allopurinoL 300 MG TAB PO SCH (08:30)
[2023-08-28] MEDS: ATORVASTATIN 20 MG TAB PO SCH (08:30)
[2023-08-28] MEDS ORDERED: FUROSEMIDE 20 MG TAB PO SCH (09:00)
[2023-08-28] MEDS ORDERED: lisinopril 5 MG TAB PO SCH (09:00)
[2023-08-28 09:12] LABS: INR 1.6 (0.9-1.1); Prothrombin Time 16.9 Seconds (9.0-12.0)
[2023-08-28] MEDS: ACETAMINOPHEN 500 MG TAB PO PRN ×2 (09:51→17:07)
[2023-08-28] MEDS ORDERED: LACTATED RINGER'S 500 ML IV ONE (17:17)
[2023-08-29] MEDS: PANTOprazole 40 MG TAB PO SCH (05:31)
[2023-08-29] MEDS: cefTRIAXone SODIUM 2,000 MG in DEXTROSE 5 % MINI-B 50 ML IV SCH (06:04)
[2023-08-29 07:09] LABS: Hematocrit (blood only) 26.2 % (42.0-52.0); Hemoglobin 9.1 g/dl (14.0-18.0); Immature Retic Fraction 20.7 % (2.3-15.9); Mean Corpuscular Hemoglobin 36.5 pg (25.0-34.0); Mean Corpuscular Hgb Conc 34.7 g/dL (32.0-36.0); Mean Corpuscular Volume 105.2 fL (80.0-100.0); Mean Platelet Volume 11.4 fL (9.4-12.4); Platelet Count 48 K/uL (130-400); RDW Coefficient of Variation 16.1 % (11.5-14.5); RDW Standard Deviation 61.8 fL (36.4-46.3); Red Blood Count 2.49 M/uL (4.70-6.10); Reticulated Hemoglobin 41.7 pg (28.2-36.6); Reticulocyte % 3.2 % (0.5-2.0); Reticulocytes # 0.08 10^6/uL (0.02-0.10)
[2023-08-29 07:16] LABS: Albumin Level 2.1 gm/dl (3.4-5.0); Bilirubin,Total 2.9 mg/dl (0.2-1.0); Calcium 7.9 mg/dl (8.6-10.3); Magnesium 1.8 mg/dl (1.7-2.4); Potassium 3.8 mmol/L (3.5-5.1)
[2023-08-29 07:22] LABS: Albumin Globulin Ratio 0.6 (0.9-2); BUN Creatinine Ratio 19.6 (10-20); Creatinine Clr Calc Pharmacy 117.2 ml/min; Est GFR (African American) 105.1 ml/min; Est GFR (Non-African American) 90.7 ml/min; Globulin 3.6 gm/dl (2.5-4.0); Phosphorus 2.7 mg/dl (2.5-4.9); Total Protein 5.7 gm/dl (6.0-8.3)
[2023-08-29 07:51] LABS: INR 1.7 (0.9-1.1); Prothrombin Time 17.7 Seconds (9.0-12.0)
[2023-08-29 07:56] LABS: Folate (Folic Acid),Ser orPlas 17.06 ng/ml (>5.38); Vitamin B12 > 1500 pg/ml (180-914)
--- NOTE | 2023-08-29 08:12 | Hospitalist Progress Note ---
Date of Service August 29, 2023 Assessment & Plan (1) Acute urinary retention: Plan: 58-year-old male with past med history significant for type 2 diabetes, hyperlipidemia, chronic idiopathic gout, hepatic encephalopathy, hypertension, moderate aortic stenosis, liver cirrhosis, diverticulosis of colon, thrombocytopenia presented to the ER in the morning because he was not able to micturate and found to have urinary retention and was placed Mcmillan and discharg ed home and was also started on Flomax but comes back because of having lot abdominal pain and the Mcmillan was leaking. In the ER Mcmillan was changed but still it was leaking and also had small hematuria and having a lot of pain so the Mcmillan was removed again. Urology felt this may have been secondary to constipation as patient reports not taking lactulose given "taste" and had not had a bowel movement in some time. Patient denies any other urinary symptoms. Infectious work up negative to date. Course complicated by hypotension, in which home antihypertensive were held, including lasix for now. Patient still with elevated PVRs, however, this is likely inaccurate 2/2 small ascites; patient requesting additional day to monitor UOP and blood pressures. #Acute urinary retention *resolving Mcmillan was placed in the morning but comes back as it is leaking and having lot of pain; thought to be secondary to ER had tried to replace the Mcmillan but still it was leaking and having abdominal pain so it was removed again Urology following peripherally -Continue Flomax -Bladder scans may be inaccurate 2/2 ascites, monitor urine output for 24 more hours/pvrs, assess for symptoms (patient wishing to stay an additional night to assess) #Hyponatremia *improving Stable insetting of cirrhosis #Abnormal UA Asymptomatic, no growth on culture CTM for symptoms, discontinue abx #Hepatocellular Carcinoma #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, compensated - History of decompensation, s/p embolization of RHL on 08/02/2023 - MELD-Na:No INR on admission, ordered - Last EGD 07/04/2023: no EV, no evidence of GIB, monitor - Portal hypertension: gastropathy, splenomegaly - PSE: No evidence of HE on exam, c/w lactulose (titrated to 3-4BM / day) Rifaximin 550 BID - Ascites/Peripheral edema: no history of paracentesis, small/moderate acsites on imaging, c/w home Lasix 20mg daily - Coagulopathy: Thrombocytopenia, baseline 60-70s, now 40s - SBP: No evidence of SBP - HRS: No sign of HRS at this time - Daily CMP + INR to calculate MELD; low Na diet #Colonic thickening on exam, cecum #Mildly distended gall bladder, wall thickening -last c-scope 2019: WNL -GI Consult: given recent history of HCC and now cecal wall thickening: OP C- Scope in 2-3 weeks #Wound of glans of penis -Mupirocin TID #Acute on Chronic Anemia *stable #Acute on Chronic Thrombocytopenia -likely iso of acute urinary retention; aggressive IVF -Trend labs, hemolysis labs in am -FOBT negative #Portal Hypertensive Gastropathy -Continue PPI (home omeprazole 20mg) : 40mg Protonix while inpatient #gout -Continue allopurinol #Diabetes Mellitus TypeII Hold home metformin, pioglitazone, glimepiride Insulin sliding scale We will follow blood sugars and HbA1c levels #Hypertension #Moderate aortic stenosis Monitor for volume overload -Hold lisinopril and coreg #Hyperlipidemia Continue statin DVT prophylaxis SCDs Disposition Med/telemetry Full code Admission and Anticipated Discharge Date Admission Date: August 27, 2023 Subjective NAEO Still hypotensive, but otherwise denies any symptoms Reports 8 bowel movements in 24 hours with current lactulose TID Reports area of bleeding around base of glans of penis Review of Systems Review of Systems: All systems reviewed & are unremarkable except as noted in Subjective Physical Exam Constitutional: WD/WN, vitals as above Respiratory: normal respiratory effort, lungs clear to auscultation Cardiovascular: RRR, no murmur, no edema Gastrointestinal (Abdomen): normal bowel sounds, soft, nontender, no hepatosplenomegaly Skin: small break in skin at base of glans of penis on dorsum of shaft--no discharge, rash, lesions out side of tear with bleeding. Results & Data Results & Data Vital Signs (Past 12 Hours) Vital Signs Temp Pulse Pulse Resp BP Pulse Ox O2 Del Method 08/29/23 07:30 70 08/29/23 07:49 36.7 C 73 20 97/56 L 97 Room Air 08/29/23 02:44 36.8 C 74 16 97/57 L 97 Room Air 08/29/23 01:55 78 08/29/23 01:33 Room Air 08/28/23 22:21 36.6 C 78 16 92/53 L 97 Room Air Laboratory Results Short CBC 08/29/23 Range/Units 06:24 WBC 3.90 L (4.8-10.8) K/ul Hgb 9.1 L (14.0-18.0) g/dl Hct 26.2 L (42.0-52.0) % Plt Count 48 L (130-400) K/uL BMP 08/29/23 06:24 Sodium 132 L Potassium 3.8 Chloride 106 Carbon Dioxide 22 BUN 18 Creatinine 0.92 Glucose 106 H Calcium 7.9 L Liver Function 08/29/23 Range/Units 06:24 Total Bilirubin 2.9 H (0.2-1.0) mg/dl AST 54 H (13-39) U/L ALT 26 (7-52) U/L Alkaline Phosphatase 93 (34-104) U/L Albumin 2.1 L (3.4-5.0) gm/dl Medications Administered Home Medications Medication Instructions Recorded Confirmed Last Taken allopurinol 300 mg tablet 300 mg PO QAM 06/03/19 08/27/23 08/26/23 lisinopril 5 mg tablet 5 mg PO QAM 06/03/19 08/27/23 08/26/23 09:00 metformin 500 mg tablet 500 mg PO BIDM 06/03/19 08/27/23 08/26/23 multivitamin 1 tab PO QAM 06/03/19 08/27/23 08/26/23 omeprazole 20 mg capsule,delayed 20 mg PO DAILYBB 06/03/19 08/27/23 08/26/23 09:00 release pioglitazone 30 mg tablet (Actos) 30 mg PO QAM 06/03/19 08/27/23 08/25/23 atorvastatin 20 mg tablet 20 mg PO QAM 04/21/21 08/27/23 08/26/23 glimepiride 1 mg tablet 1 mg PO QDB 01/13/22 08/27/23 08/26/23 furosemide 20 mg tablet 20 mg PO QAM #30 tabs 03/30/22 08/27/23 08/26/23 lactulose 20 gram/30 mL oral 45 g (67.5 mL) PO TID Cirrhosis 30 03/30/22 08/27/23 08/26/23 solution days #3,000 mL rifaximin 550 mg tablet 550 mg PO BID #180 tabs 03/30/22 08/27/23 08/26/23 ascorbic acid (vitamin C) 1,000 mg 1 g PO QAM 08/27/23 08/27/23 Unknown tablet (Vitamin C) carvedilol 6.25 mg tablet 6.25 mg PO BID 08/27/23 08/27/23 Unknown meloxicam 15 mg tablet 15 mg PO DAILY PRN Pain 08/27/23 08/27/23 Unknown tamsulosin 0.4 mg capsule 0.4 mg PO DAILY #14 caps 08/27/23 08/27/23 08/27/23 Active Medications Generic Name Dose Route Start Last Admin Trade Name Freq PRN Reason Stop Dose Admin Acetaminophen 500 mg 08/28/23 09:34 08/28/23 17:07 Acetaminophen 500 Mg Tab PO 09/27/23 09:33 500 mg Q4H PRN Administration Pain Allopurinol 300 mg 08/28/23 09:00 08/28/23 08:30 Allopurinol 300 Mg Tab PO 09/27/23 08:59 300 mg QAM MOODY Administration Ascorbic Acid 1,000 mg 08/28/23 09:00 08/28/23 08:30 Ascorbic Acid 500 Mg Tab PO 09/27/23 08:59 1,000 mg QAM MOODY Administration Atorvastatin Calcium 20 mg 08/28/23 09:00 08/28/23 08:30 Atorvastatin 20 Mg Tab PO 09/27/23 08:59 20 mg QAM MOODY Administration Furosemide 20 mg 08/28/23 09:00 08/28/23 08:29 Furosemide 20 Mg Tab PO 09/27/23 08:59 20 mg QAM MOODY Administration Ceftriaxone Sodium 2,000 mg/ 50 mls @ 100 mls/hr 08/28/23 07:00 08/29/23 06:40 Dextrose IV 09/07/23 06:59 Infused Q24H [facility] Infusion Protocol Insulin Aspart 0 units 08/27/23 22:41 08/28/23 21:04 Insulin Aspart Per Unit Charge SC 09/26/23 22:40 Not Given ACHS MOODY Lactulose 30 gm 08/27/23 22:41 08/28/23 20:36 Lactulose Syrup 30 Gm/45 Ml Udp PO 09/26/23 22:40 Not Given TID MOODY Multivitamins 1 tab 08/28/23 09:00 08/28/23 08:30 Multivitamin Tab PO 09/27/23 08:59 1 tab QAM MOODY Administration Pantoprazole Sodium 40 mg 08/28/23 06:30 08/29/23 05:31 Pantoprazole 40 Mg Tab PO 09/27/23 06:29 40 mg DAILYBB MOODY Administration Rifaximin 550 mg 08/27/23 22:41 08/28/23 20:35 Rifaximin 550 Mg Tablet PO 09/26/23 22:40 550 mg BID MOODY Administration Tamsulosin HCl 0.4 mg 08/28/23 09:00 08/28/23 08:29 Tamsulosin Hcl 0.4 Mg Cap PO 09/27/23 08:59 0.4 mg DAILY MOODY Administration
[2023-08-29] MEDS: INSULIN ASPART PER UNIT CHARGE SC SCH ×4 (08:19→20:17)
[2023-08-29] MEDS: ASCORBIC ACID 500 MG TAB PO SCH (09:14)
[2023-08-29] MEDS: allopurinoL 300 MG TAB PO SCH (09:14)
[2023-08-29] MEDS: LACTULOSE SYRUP 30 GM/45 ML UDP PO SCH ×2 (09:15→14:11)
[2023-08-29] MEDS: ATORVASTATIN 20 MG TAB PO SCH (09:15)
[2023-08-29] MEDS: MULTIVITAMIN TAB PO SCH (09:15)
[2023-08-29] MEDS: TAMSULOSIN HCL 0.4 MG CAP PO SCH (09:16)
[2023-08-29] MEDS: rifAXIMin 550 MG TABLET PO SCH ×2 (09:16→19:37)
--- NOTE | 2023-08-29 11:23 | Gastrointestinal Consultation ---
Date of Consultation August 29, 2023 Assessment & Plan (1) Abnormal CT of the abdomen: Plan Will arrange OP colonoscopy. No GI contraindication to a low salt regular consistency diet. Pt has liver transplant evaluation arranged for next month in [place]. Defer restarting diuretics to primary hospital - after urology issues are resolved. Continue same dose/frequency of lactulose (titrate to 2-3 loose Bms/day), rifaximin, GI will sign off. Recall if questions. Supervising Physician Co-Signing Physician Notes I personally saw and evaluated the patient on 08/29/2023 with CONCHIS Chandler and agree with her findings and plan of care. On exam abdomen is soft and non-tender. 58 y/o M with history of GONZALES cirrhosis c/b HCC s/p TACE, HE, and ascites, moderate aortic stenosis amongst others admitted with urinary issues but incidentally found to have cecal/ascending wall thickening on CT. Last colonoscopy was normal in 2019. He does report his mother had colon cancer diagnosed in her 60s. Denies any other family history of CRC. He denies any weight loss, change in bowel habits, or bleeding. He does endorse bloating and nausea when he takes lactulose. We will arrange outpatient colonoscopy in the next 2-4 weeks. Our team will call him to schedule. GI will sign off at this time but please call back with questions. Delmy Hernandez, Gastroenterology and Hepatology History of Present Illness Reason for Consultation: Recent HCC +cecal thickening on CT;last scope 2019 Requesting Physician: Dr. Godfrey MD Attending Physician: Autumn Donahue MD History of Present Illness Mr. Lloyd Spencer is a 58 yr old male pt of Dr. Mays w a hx of GONZALES cirrhosis w prior Hepatic Encephalopathy, HCC recently embolized by IR, also w DM2, HTN, HLD, gout, moderate aortic stenosis. He was admitted for urinary retention inability to void. CT incidentally found cecal wall thickening. His most recent colonoscopy was in 2019. Most recent EGD was in June w port HTN gastropathy. When asked about related symptoms, he mentions that he had had some constipation and bloating after the HCC embolization a few weeks ago but began passing bowel movements again about 2 days ago. He also occasionally has nausea and dry heaving which he attributes to the lactulose. He is currently passing about 2-3 loose bowel movements per day. He does have a family hx of colon cancer - his mother in her 60's. Allergies Allergy/AdvReac Type Severity Reaction Status Date / Time aspirin Allergy Intermediate NOSE Verified 08/27/23 11:18 BLEEDS--IF TAKES REGULARLY Home Medications Medication Instructions Recorded Confirmed Type allopurinol 300 mg tablet 300 mg PO QAM 06/03/19 08/27/23 History lisinopril 5 mg tablet 5 mg PO QAM 06/03/19 08/27/23 History metformin 500 mg tablet 500 mg PO BIDM 06/03/19 08/27/23 History multivitamin 1 tab PO QAM 06/03/19 08/27/23 History omeprazole 20 mg capsule,delayed 20 mg PO DAILYBB 06/03/19 08/27/23 History release pioglitazone 30 mg tablet (Actos) 30 mg PO QAM 06/03/19 08/27/23 History atorvastatin 20 mg tablet 20 mg PO QAM 04/21/21 08/27/23 History glimepiride 1 mg tablet 1 mg PO QDB 01/13/22 08/27/23 History furosemide 20 mg tablet 20 mg PO QAM #30 tabs 03/30/22 08/27/23 Rx lactulose 20 gram/30 mL oral 45 g (67.5 mL) PO TID Cirrhosis 30 03/30/22 08/27/23 Rx solution days #3,000 mL rifaximin 550 mg tablet 550 mg PO BID #180 tabs 03/30/22 08/27/23 Rx ascorbic acid (vitamin C) 1,000 mg 1 g PO QAM 08/27/23 08/27/23 History tablet (Vitamin C) carvedilol 6.25 mg tablet 6.25 mg PO BID 08/27/23 08/27/23 History meloxicam 15 mg tablet 15 mg PO DAILY PRN Pain 08/27/23 08/27/23 History tamsulosin 0.4 mg capsule 0.4 mg PO DAILY #14 caps 08/27/23 08/27/23 Rx Patient History Medical History Acute hepatic encephalopathy Anaplasmosis 2020 Cardiac murmur HX Diabetes mellitus, type 2 Fracture of rib of right side 2013 Gout Hyperlipidemia Hyperlipidemia Hypertension 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 Right rib fracture Thrombocytopenia Surgical History History of colonoscopy Family History Mother History of colonoscopy Brother Family history of diabetes mellitus Brother Family history of diabetes mellitus Grandmother (Paternal) Family history of diabetes mellitus Social History Smoking Status: Former smoker Tobacco Type: Cigarettes and Smokeless Tobacco (Dip or Chew) Second Hand Exposure: No; Do You Dip or Chew Tobacco: No (previously quit 20 years ago); Tobacco Cessation Education Requested by Patient: No Hx Alcohol Use: No Hx Substance Use: No Preferred Language: Portuguese Communication Ability: Effective District Representative Required: Yes and No Beliefs That Will Affect Care: None marital status: Single Current Living Situation: Alone and Family Current Living Situation Comment: mom and daughter live with him Other Information That Helps Us Care for You: No Feels Safe at Home: Yes Assistive Devices: None Review of Systems Review of Systems: ROS: Gen: Denies weakness, fevers, weight loss Eyes: No eye redness, or pain, no recent vision changes Resp: No SOB, no cough Cardio: No palpitations/irregular beats, no chest pain GI: Constipation, bloating : Denies pain on urination Skin: No jaundice, itching or new rashes Physical Exam Constitutional: WD/WN, vitals as above Eyes: PERRL, conjunctivae normal, anicteric sclerae ENMT: external ear and nose normal, oropharynx normal Neck: trachea midline, no thyromegaly Respiratory: normal respiratory effort, lungs clear to auscultation Cardiovascular: RRR, no murmur, no edema Gastrointestinal (Abdomen): Soft, non tender, active BS, mild ascites Musculoskeletal: no cyanosis or clubbing, extremities motor strength 5/5 Skin: no rashes, warm and dry (no jaundice) Neurologic: PERRL, EOMI, accommodation nl, no face palsy, no dysarthria Psychiatric: A+Ox3, euthymic affect Lymphatic: no cervical or axillary lymphadenopathy Results & Data Vital Signs (Past 12 Hours) Vital Signs Temp Pulse Pulse Resp BP Pulse Ox O2 Del Method 08/29/23 07:30 70 08/29/23 07:49 36.7 C 73 20 97/56 L 97 Room Air 10/31/23 02:44 36.8 C 74 16 97/57 L 97 Room Air 08/29/23 01:55 78 08/29/23 01:33 Room Air Laboratory Results WBC 3.9, Hb 9.1, HCT two 6.2, PLT 48, PT 17, INR 1.7, NA 132, K3.8, CL 106, CO2 22, BUN 18, CR 0.9, glucose 105. T. bili 2.5, AST 54, ALT 26, alk phos 94 Diagnostic Findings Non contrast CTAP 08/29/23: 1. No bowel obstruction or pneumoperitoneum. 2. Cirrhosis with stigmata of portal venous hypertension including splenomegaly with abdominal varicosities and ascites. 3. There is a new 3 cm calcified focus within the right hepatic lobe. 4. Small left pleural effusion. 5. Nonobstructing bilateral nephrolithiasis. 6. Additional findings as above.
[2023-08-29] MEDS: MUPIROCIN 2% OINT 22 GM TUBE EXT SCH ×2 (14:11→19:36)
[2023-08-29] MEDS: ACETAMINOPHEN 500 MG TAB PO PRN (17:03)
[2023-08-30] MEDS: PANTOprazole 40 MG TAB PO SCH (05:44)
[2023-08-30 06:24] LABS: Basophils # (auto) 0.05 K/uL (0.00-0.20); Basophils % (auto) 1.4 %; Eosinophils # (auto) 0.16 K/uL (0.00-0.50); Eosinophils % (auto) 4.6 %; Hematocrit (blood only) 26.2 % (42.0-52.0); Hemoglobin 9.4 g/dl (14.0-18.0); Immature Granulocytes # (auto) 0.01 K/uL (0.01-0.20); Immature Granulocytes % (auto) 0.3 %; Lymphocytes # (auto) 0.65 K/uL (1.20-3.40); Lymphocytes % (auto) 18.8 %; Mean Corpuscular Hgb Conc 35.9 g/dL (32.0-36.0); Mean Corpuscular Volume 103.1 fL (80.0-100.0); Mean Platelet Volume 11.2 fL (9.4-12.4); Monocytes # (auto) 0.77 K/uL (0.11-0.59); Monocytes % (auto) 22.3 %; Neutrophils # (auto) 1.82 K/uL (1.40-6.50); Neutrophils % (auto) 52.6 %; Platelet Count 51 K/uL (130-400); RDW Coefficient of Variation 16.3 % (11.5-14.5); RDW Standard Deviation 61.4 fL (36.4-46.3); Red Blood Count 2.54 M/uL (4.70-6.10); White Blood Count 3.46 K/ul (4.8-10.8)
[2023-08-30 06:44] LABS: Albumin Globulin Ratio 0.6 (0.9-2); BUN Creatinine Ratio 16.7 (10-20); Bilirubin,Total 2.4 mg/dl (0.2-1.0); Calcium 7.6 mg/dl (8.6-10.3); Creatinine Clr Calc Pharmacy 128.8 ml/min; Est GFR (African American) 111.1 ml/min; Est GFR (Non-African American) 95.8 ml/min; Globulin 3.6 gm/dl (2.5-4.0); Potassium 3.7 mmol/L (3.5-5.1); Total Protein 5.6 gm/dl (6.0-8.3)
[2023-08-30 06:59] LABS: INR 1.6 (0.9-1.1); Prothrombin Time 17.1 Seconds (9.0-12.0)
[2023-08-30] MEDS: ASCORBIC ACID 500 MG TAB PO SCH (07:33)
[2023-08-30] MEDS: allopurinoL 300 MG TAB PO SCH (07:33)
[2023-08-30] MEDS: TAMSULOSIN HCL 0.4 MG CAP PO SCH (07:33)
[2023-08-30] MEDS: MULTIVITAMIN TAB PO SCH (07:33)
[2023-08-30] MEDS: rifAXIMin 550 MG TABLET PO SCH (07:33)
[2023-08-30] MEDS: ATORVASTATIN 20 MG TAB PO SCH (07:34)
[2023-08-30] MEDS: MUPIROCIN 2% OINT 22 GM TUBE EXT SCH ×2 (07:34→13:18)
[2023-08-30] MEDS: INSULIN ASPART PER UNIT CHARGE SC SCH ×2 (07:39→13:17)
[2023-08-30] MEDS ORDERED: LACTULOSE SYRUP 30 GM/45 ML UDP PO SCH (09:00)
--- NOTE | 2023-08-30 14:17 | Hospitalist Progress Note ---
Date of Service August 30, 2023 Assessment & Plan (1) Acute urinary retention: Plan: 58-year-old male with past med history significant for type 2 diabetes, hyperlipidemia, chronic idiopathic gout, hepatic encephalopathy, hypertension, moderate aortic stenosis, liver cirrhosis, diverticulosis of colon, thrombocytopenia presented to the ER in the morning because he was not able to micturate and found to have urinary retention and was placed Mcmillan and discharg ed home and was also started on Flomax but comes back because of having lot abdominal pain and the Mcmillan was leaking. In the ER Mcmillan was changed but still it was leaking and also had small hematuria and having a lot of pain so the Mcmillan was removed again. Urology felt this may have been secondary to constipation as patient reports not taking lactulose given "taste" and had not had a bowel movement in some time. Patient denies any other urinary symptoms. Infectious work up negative to date. Course complicated by hypotension, in which home antihypertensive were held, including lasix for now. Patient still with elevated PVRs, however, this is likely inaccurate 2/2 small ascites; patient requesting additional day to monitor UOP and blood pressures. #Acute urinary retention *resolving Mcmillan was placed in the morning but comes back as it is leaking and having lot of pain; thought to be secondary to ER had tried to replace the Mcmillan but still it was leaking and having abdominal pain so it was removed again Urology following peripherally -Continue Flomax -Bladder scans may be inaccurate 2/2 ascites, monitor urine output for 24 more hours/pvrs, assess for symptoms (patient wishing to stay an additional night to assess) #Hyponatremia *improving Stable insetting of cirrhosis #Abnormal UA Asymptomatic, no growth on culture CTM for symptoms, discontinue abx #Hepatocellular Carcinoma #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, compensated - History of decompensation, s/p embolization of RHL on 08/02/2023 - MELD-Na:No INR on admission, ordered - Last EGD 07/04/2023: no EV, no evidence of GIB, monitor - Portal hypertension: gastropathy, splenomegaly - PSE: No evidence of HE on exam, c/w lactulose (titrated to 3-4BM / day) Rifaximin 550 BID - Ascites/Peripheral edema: no history of paracentesis, small/moderate acsites on imaging, c/w home Lasix 20mg daily - Coagulopathy: Thrombocytopenia, baseline 60-70s, now 40s - SBP: No evidence of SBP - HRS: No sign of HRS at this time - Daily CMP + INR to calculate MELD; low Na diet #Colonic thickening on exam, cecum #Mildly distended gall bladder, wall thickening -last c-scope 2019: WNL -GI Consult: given recent history of HCC and now cecal wall thickening: OP C- Scope in 2-3 weeks #Wound of glans of penis -Mupirocin TID #Acute on Chronic Anemia *stable #Acute on Chronic Thrombocytopenia -likely iso of acute urinary retention; aggressive IVF -Trend labs, hemolysis labs in am -FOBT negative #Portal Hypertensive Gastropathy -Continue PPI (home omeprazole 20mg) : 40mg Protonix while inpatient #gout -Continue allopurinol #Diabetes Mellitus TypeII Hold home metformin, pioglitazone, glimepiride Insulin sliding scale We will follow blood sugars and HbA1c levels #Hypertension #Moderate aortic stenosis Monitor for volume overload -Hold lisinopril and coreg #Hyperlipidemia Continue statin DVT prophylaxis SCDs Disposition Med/telemetry Full code Admission and Anticipated Discharge Date Admission Date: August 27, 2023 Results & Data Results & Data Vital Signs (Past 12 Hours) Vital Signs Temp Pulse Pulse Resp BP Pulse Ox O2 Del Method 08/30/23 11:30 36.6 C 74 18 119/59 L 99 Room Air 08/30/23 02:41 36.9 C 82 19 104/65 98 Room Air 08/30/23 02:31 91 H Laboratory Results Short CBC 08/30/23 Range/Units 05:40 WBC 3.46 L (4.8-10.8) K/ul Hgb 9.4 L (14.0-18.0) g/dl Hct 26.2 L (42.0-52.0) % Plt Count 51 L (130-400) K/uL BMP 08/30/23 05:40 Sodium 134 L Potassium 3.7 Chloride 107 Carbon Dioxide 25 BUN 14 Creatinine 0.84 Glucose 107 H Calcium 7.6 L Liver Function 08/30/23 Range/Units 05:40 Total Bilirubin 2.4 H (0.2-1.0) mg/dl AST 53 H (13-39) U/L ALT 28 (7-52) U/L Alkaline Phosphatase 94 (34-104) U/L Albumin 2.0 L (3.4-5.0) gm/dl Medications Administered Current Inpatient Medications Acetaminophen (Acetaminophen 500 Mg Tab) 500 mg PO Q4H PRN PRN Reason: Pain Stop: 09/27/23 09:33 Last Admin: 08/29/23 17:03 Dose: 500 mg Allopurinol (Allopurinol 300 Mg Tab) 300 mg PO QAM [facility] Stop: 09/27/23 08:59 Last Admin: 08/30/23 07:33 Dose: 300 mg Ascorbic Acid (Ascorbic Acid 500 Mg Tab) 1,000 mg PO QAM [facility] Stop: 09/27/23 08:59 Last Admin: 08/30/23 07:33 Dose: 1,000 mg Atorvastatin Calcium (Atorvastatin 20 Mg Tab) 20 mg PO QAM [facility] Stop: 09/27/23 08:59 Last Admin: 08/30/23 07:34 Dose: 20 mg Dextrose (Dextrose 50% 50 Ml Syringe) 25 - 50 ml IV UD PRN; Protocol PRN Reason: Hypoglycemia Protocol Stop: 09/26/23 22:40 Furosemide (Furosemide 20 Mg Tab) 20 mg PO QAM [facility] Stop: 09/27/23 08:59 Last Admin: 08/28/23 08:29 Dose: 20 mg Glucagon (Glucagon For Inj 1 Mg Vial) 1 mg SQ UD PRN; Protocol PRN Reason: Hypoglycemia Protocol Stop: 09/26/23 22:40 Glucose (Glucose 10 Tab/Tube) 4 - 8 tab PO UD PRN; Protocol PRN Reason: Hypoglycemia Treatment Stop: 09/26/23 22:40 Glucose (Glucose 40% Gel 15 Gm Tube) 15 - 30 gm PO UD PRN; Protocol PRN Reason: Hypoglycemia Protocol Stop: 09/26/23 22:40 Insulin Aspart (Insulin Aspart Per Unit Charge) 0 units SC ACHS [facility] Stop: 09/26/23 22:40 Last Admin: 08/30/23 13:17 Dose: 4 units Lactulose (Lactulose Syrup 30 Gm/45 Ml Udp) 30 gm PO DAILY [facility] Stop: 09/29/23 08:59 Last Admin: 08/30/23 07:35 Dose: 30 gm Miscellaneous (Carbohydrates For Hypoglycemia ) 15 - 30 gm PO UD PRN PRN Reason: Hypoglycemia Protocol Stop: 09/26/23 22:40 Multivitamins (Multivitamin Tab) 1 tab PO QAM [facility] Stop: 09/27/23 08:59 Last Admin: 08/30/23 07:33 Dose: 1 tab Mupirocin (Mupirocin 2% Oint 22 Gm Tube) 1 appln EXT TID [facility] Stop: 09/28/23 13:59 Last Admin: 08/30/23 13:18 Dose: 1 appln Nitroglycerin (Nitroglycerin Sl 0.4 Mg/Tab Tab) 0.4 mg SL Q5M PRN PRN Reason: Chest Pain Stop: 09/26/23 22:40 Pantoprazole Sodium (Pantoprazole 40 Mg Tab) 40 mg PO DAILYBB [facility] Stop: 09/27/23 06:29 Last Admin: 08/30/23 05:44 Dose: 40 mg Rifaximin (Rifaximin 550 Mg Tablet) 550 mg PO BID [facility] Stop: 09/26/23 22:40 Last Admin: 08/30/23 07:33 Dose: 550 mg Tamsulosin HCl (Tamsulosin Hcl 0.4 Mg Cap) 0.4 mg PO DAILY [facility] Stop: 09/27/23 08:59 Last Admin: 08/30/23 07:33 Dose: 0.4 mg
--- NOTE | 2023-08-30 14:36 | Discharge Summary ---
Discharge Summary Date of Service August 30, 2023 Notes For Next Care Provider Medication Changes From Visit please see med rec Admission HPI Per Admitting Provider 58-year-old male with past med history significant for type 2 diabetes, hyperlipidemia, chronic idiopathic gout, hepatic encephalopathy, hypertension, moderate aortic stenosis, liver cirrhosis, diverticulosis of colon, thrombocytopenia presented to the ER in the morning because he was not able to micturate and found to have urinary retention and was placed Mcmillan and discharged home and was also started on Flomax but comes back because of having lot abdominal pain and the Mcmillan was leaking. In the ER Mcmillan was changed but still it was leaking and also had small hematuria and having a lot of pain so the Mcmillan was removed again. Currently abdominal pain is better. says he has chronic bloating. Did not move his bowels today. Takes lactulose. Denies any chest pain or shortness of breath. No nausea or vomiting. Currently no headache. Vision is okay. Currently no earache or runny nose or sore throat. Today morning had some sore throat but that got resolved. Denies any fevers. Currently resting comfortably and hemodynamic stable. Past med history. As mentioned above Past surgical history. Colonoscopy. EGD. IR cancer embolization. Social history. Quit smoking 2004. Chews tobacco. No alcohol use. No drug use. Family history. Mother had colon cancer. Hypertension. Brother had irritable bowel syndrome. Sleep apnea. Diabetes. Cancer. Principal Dx & Hospital Course #1 = Principal Diagnosis (1) Acute urinary retention: (2) 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: (3) Hepatocellular carcinoma: (4) Morbid obesity: Plan 58-year-old man with multiple medical problems presented with urinary retention with Mcmillan catheter leakage. ER personnel tried to replace the Mcmillan but it was still leaking and he patient was having abdominal pain so it was then removed again. Flomax was continued. Urology was consulted. Empiric Rocephin was given in case of urinary tract infection. Urology was consulted. Notably there was no leukocytosis. CT abdomen pelvis was reviewed with no evidence of hydronephrosis or obstruction. Bilateral nephrolithiasis was seen. The patient was voiding spontaneously and postvoid residuals were acceptable. Urinary retention was also thought secondary to possible constipation or underlying BPH along with other possible reasons. Flomax was continued and additional efforts to improve constipation were taken. Notably bladder scans were thought to be inaccurate secondary to ascites in the setting of known liver disease with hepatocellular carcinoma. GI was consulted and recommended outpatient colonoscopy. Notably patient has a liver transplant evaluation arranged in [place] for the next month. Bloating and nausea may be related to lactulose use. UTI was ruled out. Carvedilol and lisinopril were held at time of discharge in the setting of hypotension. Lasix was also held until follow-up with outpatient provider. At time of discharge he was hemodynamically stable and afebrile and tolerating p.o. He was mentating ambulate at baseline and sent home with close primary care follow-up recommended. Discharge Exam CONSTITUTIONAL: obese, vitals as above, generally well-appearing, NAD EYES: EOMI bilaterally, PERRL, normal conjunctivae, no scleral icterus, ENT: external ear and nose normal, MMM NECK: trachea midline RESPIRATORY: clear to auscultation bilaterally, no crackles, rales or wheezes, normal respiratory effort CARDIOVASCULAR: regular rate and rhythm, 3/6 RAHAT heard, no gallops or rubs, no JVD, no peripheral edema, CHEST: inspection of chest was normal GASTROINTESTINAL: soft, nontender, ND, protuberant without maxwell abdominal fluid wave, some increased density to tissues in the RUQ without tenderness, no guarding MUSCULOSKELETAL: strength 5/5 throughout, head is normocephalic and atraumatic, neck supple SKIN: warm and dry NEUROLOGIC: CN 2-12 grossly intact, no sensory deficit, normal cognition, normal speech, +[employer] PSYCHIATRIC: alert cooperative and oriented to person, place and time. Euthymic mood, makes good eye contact, language grossly intact, recent and remote memory grossly intact. Updated Medication List Medication Instructions Recorded Confirmed Type allopurinol 300 mg tablet 300 mg PO QAM 06/03/19 08/27/23 History metformin 500 mg tablet 500 mg PO BIDM 06/03/19 08/27/23 History multivitamin 1 tab PO QAM 06/03/19 08/27/23 History omeprazole 20 mg capsule,delayed 20 mg PO DAILYBB 06/03/19 08/27/23 History release pioglitazone 30 mg tablet (Actos) 30 mg PO QAM 06/03/19 08/27/23 History atorvastatin 20 mg tablet 20 mg PO QAM 04/21/08/27/23 History glimepiride 1 mg tablet 1 mg PO QDB 01/13/22 08/27/23 History furosemide 20 mg tablet 20 mg PO QAM #30 tabs 03/30/22 08/27/23 Rx lactulose 20 gram/30 mL oral 45 g (67.5 mL) PO TID Cirrhosis 30 03/30/22 08/27/23 Rx solution days #3,000 mL rifaximin 550 mg tablet 550 mg PO BID #180 tabs 03/30/22 08/27/23 Rx ascorbic acid (vitamin C) 1,000 mg 1 g PO QAM 08/27/23 08/27/23 History tablet (Vitamin C) meloxicam 15 mg tablet 15 mg PO DAILY PRN Pain 08/27/23 08/27/23 History tamsulosin 0.4 mg capsule 0.4 mg PO DAILY #14 caps 08/27/23 08/27/23 Rx mupirocin 2 % topical ointment 1 applic EXT TID #20 grams 08/29/23 Rx Hospital Stay Data Consultations 08/27/23 19:33 ED Decision to Admit Stat 08/28/23 08:00 Consult Urology Routine 08/28/23 14:34 Consult Gastroenterology Routine Diagnostic Imagining Performed 08/27/23 17:20 CT Abd and Pelvis [CT abd pelvis wo con] Stat Pending Results Patient Have Any Pending Studies at Discharge: No Discharge Instructions Given to Patient (Per Discharging Provider) You were admitted for urinary retention thought to be related to constipation. It is very important that you continue your lactulose for a goal of 3-4 bowel movements a day. You were found to be with low blood pressures on this admission as well. Please discontinue your coreg and lisinopril. Only resume these medications as directed by your PCP. Please discuss the need to restart these with your primary care physician during your followup appointment per the date and time above. Please hold your water pill, Lasix 20mg--you can take this as needed for leg swelling. Please follow up closely with GI for upcoming colonoscopy as well as discussion regarding management of liver cirrhosis. Total Time Total Time Spent Total Time Spent (In Minutes): 60
== END 2023-08-30 15:49 | disposition home or self-care (01) ==
LOC: ED 14:57 → SUATTDRO 20:19 → 2S 20:19 → INTOOBSV 20:19 → 2S 22:10

== ENCOUNTER 2023-10-04 04:59 | Inpatient (IN) ==
--- NOTE | 2023-10-04 06:53 | Emergency Department Note ---
Impression & Plan Abdominal pain, Ascites, Cirrhosis ED Provider Note ED Provider Note NAME: SATISH HUERTA AGE:58 SEX: Male : 1965 ARRIVES VIA: EMS INFORMANT: Patient ED PROVIDER(s): Rosario Huynh DO CHIEF COMPLAINT: Abdominal pain HPI: This is a 58-year-old male presents emerged department complaining of abdominal pain that began around 1:00 in the morning. Patient states eating clementines approximately an hour or 2 before this. He states he has chronic intermittent left-sided abdominal pain that seems to correlate with when he needs to have a bowel movement and resolves after defecation. He states the right-sided abdominal pain began and has been constant, is otherwise nonradiating, and does not seem to change with position or exertion. He states he was nauseated and did have dry heaving prior to arrival. He denies fevers or chills. Denies any recent change in bowel movements. Denies any change in urine. PAST MEDICAL HISTORY:See Below PAST SURGICAL HISTORY:See Below FAMILY HISTORY:See Below SOCIAL HISTORY:See Below HOME MEDICATIONS:See Below ALLERGIES:See Below VITALS:See Below PHYSICAL EXAMINATION: GENERAL: alert, well appearing, well nourished, no distress, non-toxic EYE EXAM: normal conjunctiva, PERRL and EOM's grossly intact OROPHARYNX: no exudate, no erythema, lips, buccal mucosa, and tongue normal and mucous membranes are moist NECK: supple, no nuchal rigidity, no adenopathy, non-tender LUNGS: Clear to auscultation. Normal chest wall mechanics, no w/r/r HEART: no murmurs, S1 normal and S2 normal ABDOMEN: abdomen soft, tender to palpation in the right lower quadrant, normo- active bowel sounds, no masses, no rebound or guarding. Distended, dull to percussion. BACK: Back is symmetrical on inspection and there is no deformity, no midline tenderness, no CVA tenderness. SKIN: no rashes, petechiae, orbruising UPPER EXTREMITIES: upper extremities are grossly normal. FROM, nml pulses b/l. LOWER EXTREMITIES: No pitting edema. FROM, nml pulses b/l. NEURO EXAM: Normal sensorium, cranial nerves II-XII grossly intact, normal speech, no facial droop,nogross weakness of arms, no gross weakness of legs. Gross sensation intact. No ataxia. Vital Signs: reviewed and remarkable Differential Diagnosis: Differential diagnoses includes but is not limited to pancreatitis, small bowel obstruction, ischemic bowel, irritable bowel syndrome, appendicitis, diverticulitis, malignancy, hernia, urinary tract infection, perforation, viral syndrome. MEDICAL DECISION MAKING: This is a 58-year-old male with significant past medical history including cirrhosis who presents due to worsening right lower quadrant abdominal pain. Labs drawn and sent, IV established, EKG and chest ray performed at bedside interpreted by me and after discussion with patient we opted to perform CT of the abdomen and pelvis. Patient given IVF and IV morphine for pain. Patient with increased ascites on CT, no other acute findings. Patient required additional doses of IV pain medication. Due to concern for ongoing pain and complex past medical history and possible need for additional GI evaluation, case discussed with Kimberley Wu hospitalist team for additional evaluation and management. I do not suspect SBP or mesenteric ischemia. Consultation(s): 1025: Discussed with Kimberley Wu hospitalist team. Would like albumin 50 g given now. They will consult and discussed with GI. ER Treatment Provided: See below Diagnostics Interpreted By Me: -ECG: [] -Cardiac Monitoring: An order was placed for continuous cardiac monitoring. The monitor shows a rate of 110 with sinus tachycardia rhythm. -Laboratory studies: As stated above and show below. -Imaging studies: X-ray Chest: A single view study of the chest was reviewed and was negative for cardiomegaly, focal infiltrate, pulmonary edema, or wide mediastinum. Left pleural effusion. 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 Thrombocytopenia Hyperlipidemia Fracture of rib of right side 2013 Anaplasmosis 2019 Acute hepatic encephalopathy Gout Diabetes mellitus, type 2 Cardiac murmur HX Hyperlipidemia Hypertension Right rib fracture Surgical History History of colonoscopy Family History Mother History of colonoscopy Brother Family history of diabetes mellitus Brother Family history of diabetes mellitus Grandmother (Paternal) Family history of diabetes mellitus Social History Smoking Status: Never smoker Tobacco Type: Cigarettes and Smokeless Tobacco (Dip or Chew) Second Hand Exposure: No; Hx Alcohol Use: No Hx Substance Use: No Communication Ability: Effective Label Coder Required: Yes and No Beliefs That Will Affect Care: None marital status: Single Current Living Situation: Family Current Living Situation Comment: mom and daughter live with him Feels Safe at Home: Yes Assistive Devices: None Allergies Allergies Allergy/AdvReac Type Severity Reaction Status Date / Time aspirin Allergy Intermediate NOSE Verified 08/27/23 11:18 BLEEDS--IF TAKES REGULARLY Home Meds Home Medications Medication Instructions Recorded Confirmed allopurinol 300 mg tablet 300 mg PO QAM 06/03/19 10/04/23 metformin 500 mg tablet 500 mg PO BIDM 06/03/19 10/04/23 multivitamin 1 tab PO QAM 06/03/19 10/04/23 pioglitazone 30 mg tablet (Actos) 30 mg PO QAM 06/03/19 10/04/23 atorvastatin 20 mg tablet 20 mg PO QAM 04/21/21 10/04/23 glimepiride 1 mg tablet 1 mg PO QAM 01/13/22 10/04/23 ascorbic acid (vitamin C) 1,000 mg 1 g PO QAM 08/27/23 10/04/23 tablet (Vitamin C) meloxicam 15 mg tablet 15 mg PO DAILY PRN Pain 08/27/23 10/04/23 tamsulosin 0.4 mg capsule 0 mg PO DAILY 10/04/23 10/04/23 Previous Rx's Medication Instructions Recorded lactulose 20 gram/30 mL oral 45 g (67.5 mL) PO TID Cirrhosis 30 03/30/22 solution days #3,000 mL rifaximin 550 mg tablet 550 mg PO BID #180 tabs 03/30/22 mupirocin 2 % topical ointment 1 applic EXT TID #20 grams 08/29/23 Results & Data (ED) Vital Signs Vital Signs - 24 hr 10/04/23 09:20 10/04/23 09:39 10/04/23 09:40 Pulse Rate 115 H 121 H Pulse Rate from SpO2 Sensor 116 H 121 H Respiratory Rate 18 26 H Blood Pressure 150/75 H Blood Pressure Mean 102 Pulse Oximetry 97 98 10/04/23 09:40 10/04/23 09:50 10/04/23 10:00 Pulse Rate 119 H 121 H 119 H Pulse Rate from SpO2 Sensor 119 H 122 H 119 H Respiratory Rate 18 19 19 Blood Pressure Blood Pressure Mean Pulse Oximetry 98 97 91 10/04/23 10:00 10/04/23 10:10 10/04/23 10:20 Pulse Rate 120 H 119 H Pulse Rate from SpO2 Sensor 120 H 119 H Respiratory Rate 26 H 21 Blood Pressure 145/85 H Blood Pressure Mean 105 Pulse Oximetry 98 92 10/04/23 10:30 10/04/23 10:30 10/04/23 10:40 Pulse Rate 119 H 119 H Pulse Rate from SpO2 Sensor 120 H 120 H Respiratory Rate 6 L 17 Blood Pressure 127/86 Blood Pressure Mean 111 Pulse Oximetry 96 97 Laboratory Data 10/05/23 06:45 10/05/23 06:45 Lab Results 10/04/23 10/04/23 10/04/23 Range/Units 06:34 06:49 09:09 WBC 5.43 (4.8-10.8) K/ul RBC 3.67 L (4.70-6.10) M/uL Hgb 13.0 L (14.0-18.0) g/dl Hct 38.3 L (42.0-52.0) % MCV 104.4 H (80.0-100.0) fL MCH 35.4 H (25.0-34.0) pg MCHC 33.9 (32.0-36.0) g/dL RDW Std Deviation 70.3 H (36.4-46.3) fL RDW Coeff of Polo 18.1 H (11.5-14.5) % Plt Count 94 L (130-400) K/uL MPV 11.0 (9.4-12.4) fL Immature Gran % (Auto) 0.4 % Neut % (Auto) 71.0 % Lymph % (Auto) 8.5 % Runnels % (Auto) 16.8 % Eos % (Auto) 2.0 % Baso % (Auto) 1.3 % Neut # (Auto) 3.86 (1.40-6.50) K/uL Lymph # (Auto) 0.46 L (1.20-3.40) K/uL Runnels # (Auto) 0.91 H (0.11-0.59) K/uL Eos # (Auto) 0.11 (0.00-0.50) K/uL Baso # (Auto) 0.07 (0.00-0.20) K/uL Immature Gran # (Auto) 0.02 (0.01-0.20) K/uL PT 17.0 H (9.0-12.0) Seconds INR 1.6 H (0.9-1.1) Sodium 136 (136-145) mmol/L Potassium 3.7 (3.5-5.1) mmol/L Chloride 104 (98-107) mmol/L Carbon Dioxide 22 (21-32) mmol/L Anion Gap 10 (3-11) BUN 11 (6-23) mg/dl Creatinine 1.03 (0.6-1.4) mg/dl Est Cr Clr Drug Dosing Not Reportable Est GFR ( Amer) 91.7 ml/min Est GFR (Non-Af Amer) 79.1 ml/min BUN/Creatinine Ratio 10.7 (10-20) Glucose 141 H (70-99(Fasting)) mg/dl Lactate 4.5 H* 3.2 H* (0.4-2.0) mmol/L Calcium 8.6 (8.6-10.3) mg/dl Total Bilirubin 4.7 H (0.2-1.0) mg/dl AST 60 H (13-39) U/L ALT 25 (7-52) U/L Alkaline Phosphatase 120 H (34-104) U/L Ammonia 40.0 (18-72) umol/L Total Protein 6.9 (6.0-8.3) gm/dl Albumin 2.4 L (3.4-5.0) gm/dl Globulin 4.5 H (2.5-4.0) gm/dl Albumin/Globulin Ratio 0.5 L (0.9-2) Lipase 40 (11-82) U/L Administered Medications Allopurinol ([facility]opurinol 300 Mg Tab) [facility] [place]: 11/04/23 08:59 Last Admin: 10/05/23 08:17 Dose: 300 mg Documented By: SDA Ascorbic Acid (Ascorbic Acid 500 Mg Tab) [facility] [place] Stop: 11/04/23 08:59 Last Admin: 10/05/23 08:17 Dose: 1,000 mg Documented By: IAM Atorvastatin Calcium (Atorvastatin 20 Mg Tab) 20 mg PO QAM [facility] Stop: 11/04/23 08:59 Last Admin: 10/05/23 08:17 Dose: 20 mg Documented By: IAM Furosemide (Furosemide 20 Mg Tab) [facility] [place] Stop: 11/03/23 15:14 Last Admin: 10/04/23 16:29 Dose: 20 mg Documented By: EDDIE Sodium Chloride (Nss) 1,000 mls @ 125 mls/hr IV .Q8H [facility] Stop: 11/03/23 06:59 Last Infusion: 10/04/23 12:55 Dose: 0 mls/hr Documented By: Admin: 10/04/23 08:30 Dose: 125 mls/hr Documented By: JEY Ceftriaxone Sodium 2,000 mg/ (Dextrose) 50 mls @ 100 mls/hr IV Q24H [facility]; Protocol Stop: 10/14/23 15:14 Last Infusion: 10/04/23 17:13 Dose: Infused Documented By: Admin: 10/04/23 16:28 Dose: 100 mls/hr Documented By: EDDIE Insulin Aspart (Insulin Aspart Per Unit Charge) 0 units SC ACHS [facility] Stop: 11/03/23 18:14 Last Admin: 10/04/23 21:26 Dose: Not Given Documented By: Admin: 10/04/23 18:25 Dose: 7 units Documented By: EDDIE Co-signed By: LEO Lactulose (Lactulose Syrup 30 Gm/45 Ml Udp) 30 gm PO TID [facility] Stop: 11/03/23 13:59 Last Admin: 10/05/23 08:17 Dose: 30 gm Documented By: Admin: 10/04/23 21:29 Dose: Not Given Documented By: Admin: 10/04/23 16:30 Dose: 30 gm Documented By: EDDIE Multivitamins (Multivitamin Tab) 1 tab PO [facility] Stop: 11/04/23 08:59 Last Admin: 10/05/23 08:17 Dose: 1 tab Documented By: IAM Rifaximin (Rifaximin 550 Mg Tablet) 550 mg PO BID [facility] Stop: 11/03/23 20:59 Last Admin: 10/05/23 08:17 Dose: 550 mg Documented By: Admin: 10/04/23 21:29 Dose: 550 mg Documented By: SHASHANK Spironolactone (Spironolactone 25 Mg Tab) 50 mg PO QAM [facility] Stop: 11/03/23 15:14 Last Admin: 10/04/23 16:30 Dose: 50 mg Documented By: EDDIE Discontinued Medications Albumin Human (Albumin 25%) 25 gm in 100 mls @ 50 mls/hr IV Q2H [facility] Stop: 10/04/23 14:29 Last Infusion: 10/04/23 16:37 Dose: Infused Documented By: Admin: 10/04/23 14:07 Dose: 50 mls/hr Documented By: Infusion: 10/04/23 12:55 Dose: Infused Documented By: Admin: 10/04/23 10:53 Dose: 50 mls/hr Documented By: JEY Sodium Chloride (Nss) 500 mls @ 999 mls/hr IV .Q31M [facility] Stop: 10/04/23 17:40 Last Infusion: 10/04/23 19:26 Dose: Infused Documented By: Admin: 10/04/23 17:38 Dose: 999 mls/hr Documented By: EDDIE Sodium Chloride (Nss) 500 mls @ 999 mls/hr IV .Q31M ONE Stop: 10/04/23 19:50 Last Infusion: 10/04/23 20:35 Dose: Infused Documented By: Admin: 10/04/23 19:35 Dose: 999 mls/hr Documented By: SHASHANK Insulin Aspart (Insulin Aspart Per Unit Charge) 0 units SC Q6 [facility] Stop: 11/03/23 12:11 Last Admin: 10/04/23 14:06 Dose: Not Given Documented By: EDDIE Ioversol (Optiray 320 500ml) 94 ml IV ONCE ONE Stop: 10/04/23 07:58 Last Admin: 10/04/23 07:58 Dose: 94 ml Documented By: DUONG Morphine Sulfate (Morphine Sulfate 4 Mg/Ml 1 Ml Carp\Vial) 4 mg IV NOW STA Stop: 10/04/23 08:19 Last Admin: 10/04/23 08:30 Dose: 4 mg Documented By: JEY Morphine Sulfate (Morphine Sulfate 4 Mg/Ml 1 Ml Carp\Vial) 4 mg IV NOW STA Stop: 10/04/23 09:48 Last Admin: 10/04/23 10:28 Dose: 4 mg Documented By: KV Potassium Chloride (Potassium Chloride Crtab 20 Meq Tabcr) 40 meq PO NOW STA Stop: 10/05/23 08:05 Last Admin: 10/05/23 08:17 Dose: 40 meq Documented By: IAM Tramadol HCl (Tramadol Hcl 50 Mg Tablet) 50 mg PO NOW STA Stop: 10/05/23 05:23 Last Admin: 10/05/23 05:42 Dose: 50 mg Documented By: MAC Imaging Data Radiologist's Impression: Chest X-Ray 10/04/23 05:12 SINGLE VIEW CHEST CLINICAL HISTORY: Generalized abdominal pain. FINDINGS: An AP, portable, upright chest radiograph is compared to study dated 09/08/2023. The examination is degraded by portable technique and apical lordotic positioning. The heart is enlarged. The pulmonary vasculature is not congested. Chronic interstitial thickening is similar to previous. There is a small left pleural effusion with left basilar consolidation. No pneumothorax is seen. The skeletal structures are osteopenic. The bony thorax is grossly intact. IMPRESSION: 1. Cardiomegaly without radiographic evidence of congestive failure. 2. Small left pleural effusion with left basilar consolidation. ACT 112: Negative or not required by law. Electronically signed by: Ruy Ribeiro M.D. 10/04/2023 7:49 AM Abdomen/Pelvis CT 10/04/23 06:50 CT abd pelvis IV con only CLINICAL HISTORY: right abd pain TECHNIQUE: Helical axial images of the abdomen and pelvis were obtained and displayed. Automated dose lowering techniques and/or adjustment according to patient size were utilized for this exam. This exam was performed with intravenous contrast. CT DOSE: 1563.68 mGy.cm COMPARISON: Comparison is made to CT abdomen pelvis 08/27/2023 FINDINGS: Lower chest: Left pleural effusion is moderate in size, enlarged from prior exam. Liver: Nodular contour of the liver is seen compatible with cirrhosis. Right calcification is unchanged. Gallbladder and biliary tree: No calcified gallstones. Normal caliber wall. No intra- or extrahepatic biliary ductal dilation. Pancreas: Unremarkable, no focal lesions. Spleen: Unremarkable. Adrenals: Unremarkable. Kidneys and ureters: Nonobstructive nephrolithiasis is seen. Bladder: Limited evaluation due to underdistention. Reproductive organs: Unremarkable. Bowel: The appendix is normal. Lymph nodes Retroperitoneal: Unremarkable. Pelvic: Unremarkable. Mesenteric: Unremarkable. Peritoneum: Moderate ascites is seen. Vessels: Extensive varices are seen most prominently about the spleen. Abdominal wall: Body wall edema is seen. A fluid-containing umbilical hernia is seen. Fat-containing left inguinal hernia is seen. Bones: Degenerative changes in the visualized spine. IMPRESSION: 1. Cirrhosis with moderate to large ascites, significantly increased from prior exam. Stigmata of portal hypertension again noted. 2. Stable right hepatic calcification. 3. Additional findings as above. No other acute abnormalities are seen. ACT 112: Negative or not required by law. Electronically signed by: Spike Barnard M.D. 10/04/2023 8:23 AM Discharge Plan Visit Data Chief Complaint: Abdominal Pain ED Provider: Rosario Huynh Discharge Problem: Abdominal pain, Ascites, Cirrhosis Patient Disposition: Admitted As Inpatient Discharge Instructions Interventions: ED Discharge Assessment Last Done: 10/04/23 12:11
[2023-10-04] MEDS ORDERED: SODIUM CHLORIDE 0.9% 1,000 ML IV SCH (07:00)
[2023-10-04 07:15] LABS: Basophils # (auto) 0.07 K/uL (0.00-0.20); Basophils % (auto) 1.3 %; Eosinophils # (auto) 0.11 K/uL (0.00-0.50); Hematocrit (blood only) 38.3 % (42.0-52.0); Immature Granulocytes # (auto) 0.02 K/uL (0.01-0.20); Immature Granulocytes % (auto) 0.4 %; Lymphocytes # (auto) 0.46 K/uL (1.20-3.40); Lymphocytes % (auto) 8.5 %; Mean Corpuscular Hemoglobin 35.4 pg (25.0-34.0); Mean Corpuscular Hgb Conc 33.9 g/dL (32.0-36.0); Mean Corpuscular Volume 104.4 fL (80.0-100.0); Monocytes # (auto) 0.91 K/uL (0.11-0.59); Monocytes % (auto) 16.8 %; Neutrophils # (auto) 3.86 K/uL (1.40-6.50); Platelet Count 94 K/uL (130-400); RDW Coefficient of Variation 18.1 % (11.5-14.5); RDW Standard Deviation 70.3 fL (36.4-46.3); Red Blood Count 3.67 M/uL (4.70-6.10); White Blood Count 5.43 K/ul (4.8-10.8)
[2023-10-04 07:26] LABS: Alanine Aminotransferase 25 U/L (7-52); Albumin Globulin Ratio 0.5 (0.9-2); Albumin Level 2.4 gm/dl (3.4-5.0); Alkaline Phosphatase 120 U/L (34-104); Anion Gap 10 (3-11); Aspartate Aminotransferase 60 U/L (13-39); BUN Creatinine Ratio 10.7 (10-20); Bilirubin,Total 4.7 mg/dl (0.2-1.0); Blood Urea Nitrogen 11 mg/dl (6-23); Calcium 8.6 mg/dl (8.6-10.3); Carbon Dioxide 22 mmol/L (21-32); Chloride 104 mmol/L (98-107); Est GFR (African American) 91.7 ml/min; Est GFR (Non-African American) 79.1 ml/min; Globulin 4.5 gm/dl (2.5-4.0); Glucose 141 mg/dl (70-99(Fasting)); Lipase 40 U/L (11-82); Potassium 3.7 mmol/L (3.5-5.1); Sodium 136 mmol/L (136-145); Total Protein 6.9 gm/dl (6.0-8.3)
[2023-10-04 07:42] LABS: INR 1.6 (0.9-1.1)
--- NOTE | 2023-10-04 07:51 | XRay Report ---
SINGLE VIEW CHEST CLINICAL HISTORY: Generalized abdominal pain. FINDINGS: An AP, portable, upright chest radiograph is compared to study dated 09/08/2023. The examin ation is degraded by portable technique and apical lordotic positioning. The heart is enlarged. The p ulmonary vasculature is not congested. Chronic interstitial thickening is similar to previous. There is a small left pleural effusion with left basilar consolidation. No pneumothorax is seen. The skelet al structures are osteopenic. The bony thorax is grossly intact. IMPRESSION: 1. Cardiomegaly without radiographic evidence of congestive failure. 2. Small left pleural effusion with left basilar consolidation. ACT 112: Negative or not required by law. Electronically signed by: Ruy Ribeiro M.D. 10/04/2023 7:49 AM
[2023-10-04] MEDS ORDERED: OPTIRAY 320 500ml IV ONE (07:57)
[2023-10-04] MEDS ORDERED: MoRPHine SULFATE 4 MG/ML 1 ML CARP\\VIAL IV STA ×2 (08:18→09:47)
--- NOTE | 2023-10-04 08:25 | CT Scan Report ---
CT abd pelvis IV con only CLINICAL HISTORY: right abd pain TECHNIQUE: Helical axial images of the abdomen and pelvis were obtained and displayed. Automated dose lowering techniques and/or adjustment according to patient size were utilized for this exam. This e xam was performed with intravenous contrast. CT DOSE: 1563.68 mGy.cm COMPARISON: Comparison is made to CT abdomen pelvis 08/27/2023 FINDINGS: Lower chest: Left pleural effusion is moderate in size, enlarged from prior exam. Liver: Nodular contour of the liver is seen compatible with cirrhosis. Right calcification is unchang ed. Gallbladder and biliary tree: No calcified gallstones. Normal caliber wall. No intra- or extrahepatic biliary ductal dilation. Pancreas: Unremarkable, no focal lesions. Spleen: Unremarkable. Adrenals: Unremarkable. Kidneys and ureters: Nonobstructive nephrolithiasis is seen. Bladder: Limited evaluation due to underdistention. Reproductive organs: Unremarkable. Bowel: The appendix is normal. Lymph nodes Retroperitoneal: Unremarkable. Pelvic: Unremarkable. Mesenteric: Unremarkable. Peritoneum: Moderate ascites is seen. Vessels: Extensive varices are seen most prominently about the spleen. Abdominal wall: Body wall edema is seen. A fluid-containing umbilical hernia is seen. Fat-containing left inguinal hernia is seen. Bones: Degenerative changes in the visualized spine. IMPRESSION: 1. Cirrhosis with moderate to large ascites, significantly increased from prior exam. Stigmata of po rtal hypertension again noted. 2. Stable right hepatic calcification. 3. Additional findings as above. No other acute abnormalities are seen. ACT 112: Negative or not required by law. Electronically signed by: Spike Barnard M.D. 10/04/2023 8:23 AM
--- OUTSIDE RECORDS SUMMARY | 2023-10-04 09:16 | External Medical Summary | Summary of Care ---
Author Name Unknown Organization [facility] Address [address] [place] [address] Phone [phone] Care Team Providers Care Database Analyst Name Role Phone Stanford Mays MD Primary Care Provider [phone] Reason for Visit * Reason Comments Outpatient Testing Encounter Details Date Type Department Care Team (Late st Contact Info) Description 09/18/2023 12:30 PM EST Laboratory Outpatient Laboratory, [place] [address] [place] [address] [place], Lab B1a [address] [place] [address] Hepatocellular carcinoma (HCC); Pre-transplant evaluation for chronic liver disease Allergies Active Allergy Reactions Criticality Noted Date Comments Aspirin 01/28/2022 Other reaction(s): bloody nose Salicylates 08/08/2001 nose bleeds documented as of this encounter (statuses as of 09/18/2023) Medications Medication Sig Dispensed Refills Start Date End Date Status Multivitamin Adult Oral Tablet daily . 0 10/12/2021 Active Vitamin C 1000 MG Oral Tablet daily . 0 10/12/2021 Active metFORMIN HCl 500 MG Oral Tablet (Glucophage)Indicatio ns:Type 2 diabetes mellitus with hemoglobin A1c goal of less than 7.0% (HCC) TAKE ONE TABLET BY MOUTH TWICE DAILY WITH MORNING AND EVENING MEALS 180 Tablet 3 05/31/2022 Active Lactulose 10 GM/15ML Oral Solution (Constulose)Indicatio ns:Hepatic encephalopathy (HCC) TAKE 45ML THREE TIMES DAILY,IN THE MORNING, AT NOON, AND BEDFORE BEDTIME 4050 mL 5 11/07/2022 Active Pioglitazone HCl 30 MG Oral Tablet (Actos)Indications:Ty pe 2 diabetes mellitus with hemoglobin A1c goal of less than 7.0% (HCC) Take 1 Tablet by mouth in the morning. 90 Tablet 1 11/07/2022 Active Glimepiride 1 MG Oral Tablet (Amaryl) TAKE ONE TABLET BY MOUTH EVERY DAY WITH THE FIRST MAIN MEAL OF THE DAY FOR DIABETES 90 Tablet 1 11/28/2022 Active Furosemide 20 MG Oral Tablet (Lasix)Indications:Le g swelling Take 1 Tablet by mouth in the morning. 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 90 Tablet 1 07/11/2023 Active Atorvastatin Calcium 20 MG Oral Tablet (Lipitor)Indications: Hyperlipidemia with target LDL less than 100 Take 1 Tablet by mouth in the morning. 90 Tablet 1 07/11/2023 Active Omeprazole 20 MG Oral Capsule Delayed Release (PriLOSEC)Indications :GERD (gastroesophageal reflux disease) Take 1 Capsule by mouth in the morning. 1 hour before the first meal of the day. 90 Capsule 3 07/17/2023 Active Mupirocin 2 % External Ointment (Bactroban) Apply topically to affected area 3 times a day. 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 Type 2 diabetes mellitus wit h hemoglobin A1c goal of less than 7.0% 02/26/2010 Overview: HGBA1C 7.5 ICD-10 update of inactive term Family history of colon cancer Diverticulosis of colon Hyperlipidemia with target LDL less than 100 Overview: ICD-10 update of inactive term documented as of this encounter (statuses as of 09/18/2023) Resolved Problems Problem Noted Date Diagnosed Date Resolved Date Idiopathic gout 04/29/2016 10/05/2017 Obesity, Class II, BMI 35-39 .9, isolated (see actual BMI) 01/25/2010 09/01/2011 Overview: Per Obesity Taxonomy Metabolic syndrome 11/04/2009 4 Other abnormal glucose 11/04/200902/24 Overview: glucose 192 HTN, goal below 140/90 09/04/200903/01 Overview: Modified per HTN Taxonomy. Gout 05/06/2003 09/29/2016 HTN, goal below 140/90 09/04 Overview: Modified per HTN Taxonomy. Obesity, BMI not known 01/25 Overview: Per Obesity Taxonomy Abdominal pain 03/01/2010 HTN, goal below 130/80 06/21 Other acute rheumatic heart disease 02/24/2011 Overview: was on pcn for 11 years. Diverticulitis of colon 01/29 Abdominal pain 01/21/2013 Chest pain 06/12/2015 BMI 40.0-44.9, adult 019 Overview: 279 lbs documented as of this encounter (statuses as of 09/18/2023) Immunizations Name Administration Dates Next Due COVID-19 mRNA, LNP-s, No Pre serve, 2-Dose Series (Moderna) 03/08/2021,02/23/2021 COVID-19, mRNA, LNP-s, PF, B ooster, 100mcg/0.5mg (Moderna) 10/18/2021 H1N1 2008 Influenza, IM 09/13/2009 HEP A - Hepatitis A (Adult > 18 yrs) 06/06/2023 Hepatitis B, 20+ yrs 07/05/2023,06/06/20 23,12/16/2021,07/16,06/15/2021,08/30/2004,07/30/2004 ,02/28/2004 Pneumococcal Polysaccharide PPV23 (Pneumovax) 12/24/2013 SEASONAL INFLUENZA, PF, 6 M & Above, IM , (FLULAVAL or FLUZONE) 07/30/2020,08/08/2018 Season Influenza, Quad, PF, Adjuvanted, 65+ Yrs, IM (FLUAD) 07/30/2021 Seasonal Influenza, Quadriva lent, No Preserve, IM 07/30/2023,06/30/2022,08/04/2017,07/29,08/30/2015 Seasonal Influenza, Split, I IV3, No Preserve, Inj 07/30/2019 Seasonal Influenza, Split, I IV3, With Preserve, Inj 07/30/2014,08/28/2013,08/13/2012,07/13,08/13/2009,08/13/2008 TD - Tetanus/Diptheria (ADULT) 10/30/2004 TDAP (age 11 and older)(Adacel) 07/13/2011 documented as of this encounter Social History Tobacco Use Types Packs/Day Years Used Date Smoking Tobacco: Never Smokeless Tobacco: Former Chew Quit: 05/18/2005 Alcohol Use Standard Drinks/Week Comments No 0 (1 standard drink = 0.6 oz pur e alcohol) PHQ-2 Answer Date Recorded PHQ-2 Score -1 07/19/2020 Sex and Gender Information Value Date Recorded Sex Assigned at Not on file Gender Identity Not on file Sexual Orientation Not on file Job Start Date Occupation Industry Not on file Not on file Not on file documented as of this encounter Plan of Treatment Upcoming Encounters Date Type Department Care Team (Late st Contact Info) Description 09/18/2023 11:56 AM EST Hospital Encounter Radiology, [address] [address] Arrived 11/06/2023 2:45 PM EST Imaging Radiology [address] 132 [facility] [place] [address] 11/09/2023 9:00 AM EST Office Visit Gastroenterology, [facility] 132 [facility] [place] [address] Ren Pineda CRNP 132 [facility] [place] [address] 12/06/2023 8:00 AM EST Nurse Only Ancillary [address] [place] [address] [place], Nurse [address] [place] [address] 12/22/2023 9:00 AM EST Office Visit Family Medicine [address] [place] [phone] Krystian Palomo MD [address] [place] [address] [place] [address] 01/05/2024 8:00 AM EST Nurse Only Ancillary [address] [place] [address] [place], Nurse [address] [place] [address] 01/11/2024 9:30 AM EDT Procedure Only Endoscopy, [facility] 132 [facility] [place] [address] Jayla Armstrong MD [address] [place] [address] Scheduled Orders Name Type Priority Associated Diagnoses Orde r Schedule CBC Lab Routine Hepatocellular carcinoma (HCC) Pre-transplant evaluation for chronic liver disease Ordered: 09/18/2023 DIFFERENTIAL, AUTOMATED Lab Routine Hepatocellular carcinoma (HCC) Pre-transplant evaluation for chronic liver disease Ordered: 09/18/2023 Scheduled Procedures Name Priority Associated Diagnoses Date/Ti me COLONOSCOPY FLEXIBLE PROXIMA L DIAGNOSTIC Recall Family history of colon cancer Health Maintenance Due Date Last Done Comments Zoster Vaccines (1 of 2) 2014 Pneumococcal Vaccine: Pediatrics (0 to 5 Years) and At-Risk Patients (6 to 64 Years) (2 - PCV) 12/24/2014 12/24/2013 Depression Screening 05/21/2021 05/21/2020 DTaP,Tdap,and Td Vaccines (2 - Td or Tdap) 07/13/2021 07/13/2011, 10/30/2004 Diabetic Eye Exam 05/20/2023 05/20/2022, , 08/20/2019, Additional history exists COVID-19 Vaccine ( season) 2023 10/18/2021, 03/08/2021, 02/23/2021 Albumin/Creatinine Ratio 12/06/2023 023, 11/03/2021, 04/29/2021, Additional history exists B-12 12/06/2023 12/06/2022, 12/29, 11/24/2020, Additional history exists HbA1c 12/22/2023 06/21/2023, 04/2023, 04/29/2022, Additional history exists COLONOSCOPY-EVERY 5 YRS AGES 18-100 06/07/2024 06/07/2019, 05/21/2010 Diabetic Foot Exam 06/21/2024 06/21/2023, 0 07/06/2022, 04/29/2021, Additional history exists GFR 08/02/2024 08/02/2023, 05/31, 05/09/2023, Additional history exists Lipid Panel 06/21/2028 06/21/2023, 02/27, 11/24/2020, Additional history exists Hepatitis B Completed 07/05/2023, 0805/2023, 12/16/2021, Additional history exists Influenza Vaccine (FLU shot) Completed 10/2022, 06/30/2022, 07/30/2021, Additional history exists GARDASIL-HPV IMMUNIZATION SERIES Aged Out No longer eligible based on patient's age to complete this topic MENINGOCOCCAL (MENACTRA/MENVEO) Aged Out No longer eligible based on patient's age to complete this topic documented as of this encounter Medical Devices Implanted Type Area Building Services Coordinator Device Identifier Shelf Expiration Date Model / Serial / Lot Syr Pf 2ml Embospheres 100-300 - [id number] Implanted:Qty: 1 on 08/02/2023 at [facility] [employer] [id number] 02/26/2026 [id number] / / [id number] documented as of this encounter Visit Diagnoses Diagnosis Hepatocellular carcinoma (HCC) Malignant neoplasm of liver, primary Pre-transplant evaluation for chronic liver disease Other specified pre-operative examination Hepatocellular carcinoma (HCC) Malignant neoplasm of liver, primary Pre-transplant evaluation for chronic liver disease Other specified pre-operative examination documented in this encounter Care Teams Database Analyst Relationship Specialty Start Date End Date Stanford Mays MD [address] [place] [address] [place] [address] PCP - General Family Medicine 04/05/19 documented as of this encounter
--- OUTSIDE RECORDS SUMMARY | 2023-10-04 09:16 | External Medical Summary | Summary of Care ---
Author Name Unknown Organization [facility] Address [address] [place] [address] Phone [phone] Care Team Providers Care Lithographed Plate Inspector Name Role Phone Stanford Mays MD Primary Care Provider [phone] Reason for Visit * Precert (Within 10 days (routine)) - Authorized Specialty Diagnoses / Procedures Referred By Contac t Referred To Contact Radiology Diagnoses Hepatocellular carcinoma (HCC) Pre-transplant evaluation for chronic liver disease Procedures CT CHEST WO CONTRAST Avni Hall MD [address] [place] [address] Referral ID Status Reason Start Date Expiration Date V isits Requested Visits Authorized [id number] Authorized Precert 07/27/2023 10/29/[phone] Encounter Details Date Type Department Care Team (Latest Contact Info) Description 09/18/2023 11:56 AM EST - 09/18/2023 11:59 PM EST Hospital Encounter Radiology, [place] [address] [place] [address] Arrived Discharge Disposition: Home - Self Care Allergies Active Allergy Reactions Criticality Noted Date Comments Aspirin 01/28/2022 Other reaction(s): bloody nose Salicylates 08/08/2001 nose bleeds documented as of this encounter (statuses as of 09/19/2023) Medications Medication Sig Dispensed Refills Start Date [...] as of this encounter (statuses as of 09/19/2023) Active Problems Problem Noted Date Diagnosed Date 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 07/05/2023 BMI 39.0-39.9,adult 06/21/2023 Overview: 277 Hepatic encephalopathy 03/28/2022 Overview: admitted [facility], ammonia 110 Aortic stenosis, moderate 01/21/2022 Thrombocytopenia [...] as of this encounter (statuses as of 09/19/2023) Resolved Problems Problem Noted Date Diagnosed Date [...] as of this encounter (statuses as of 09/19/2023) Immunizations Name Administration Dates Next Due COVID-19 mRNA, LNP-s, No Pre serve, 2-Dose Series (Moderna) 03/08/2021,02/23/2021 COVID-19, mRNA, LNP-s, PF, B ooster, 100mcg/0.5mg (Moderna) 10/18/2021 H1N1 2009 Influenza, IM 09/13/2009 HEP A - Hepatitis [...] Care Team (Late st Contact Info) Description 11/06/2023 2:45 PM EST Imaging Radiology [facility] [address] [facility] 132 [facility] [place] [address] 11/09/2023 9:00 AM EST Office Visit Gastroenterology, [facility] 132 [facility] [place] [address] Ren Pineda CRNP 132 [facility] [place] [address] 12/06/2023 8:00 AM EST Nurse Only Ancillary [address] [place] [address] [place], Nurse [address] [place] [address] 12/22/2023 9:00 AM EST Office Visit Family Medicine [address] [place] [phone] Krystian Palomo MD [address] [place] [address] [place] [address] 01/05/2024 8:00 AM EST Nurse Only Ancillary [address] [place] [address] [place], Nurse [address] [place] [address] 01/11/2024 9:30 AM EDT Procedure Only Endoscopy, [facility] 132 [facility] [place] [address] Jayla Armstrong MD [facility] [address] [place] [address] Pending Results Name Type Priority Associated Diagnoses Date /Time CT CHEST WO CONTRAST Medical Imaging Routine Hepatocellular carcinoma (HCC) Pre-transplant evaluation for chronic liver disease 09/18/2023 12:34 PM EST Scheduled Procedures Name Priority Associated Diagnoses Date/Ti [...] 12/06/2022, 12/29, 11/24/2020, Additional history exists HbA1c 03/18/2024 09/18/2023, 05/31, 12/06/2022, Additional history exists COLONOSCOPY-EVERY 5 YRS AGES 18-100 06/07/2024 06/07/2019, 05/21/2010 Diabetic Foot Exam 06/21/2024 06/21/2023, 0 07/06/2022, 04/29/2021, Additional history exists GFR 09/18/2024 09/18/2023, 01/2023, 06/21/2023, Additional history exists Lipid Panel 09/18/2028 09/18/2023, 05/31, 03/09/2022, Additional history exists Hepatitis B Completed 07/05/2023, [...] this encounter Medical Devices Implanted Type Area Packing Line Worker Device Identifier Shelf Expiration Date Model / Serial / Lot Syr Pf 2ml Embospheres 100-300 - [id number] Implanted:Qty: 1 on 08/02/2023 at [facility] [employer] [facility] [id number] 02/26/2026 20 / / [id number] documented as of this encounter Visit Diagnoses Diagnosis Hepatocellular carcinoma (HCC) Malignant neoplasm of liver, primary Pre-transplant evaluation for chronic liver disease Other specified pre-operative examination documented in this encounter Care Teams Lithographed Plate Inspector Relationship Specialty Start Date End Date Stanford Mays MD [address] [place] [address] [place] [address] PCP - General Family Medicine 04/05/19 documented as of this encounter
--- OUTSIDE RECORDS SUMMARY | 2023-10-04 09:16 | External Medical Summary | Summary of Care ---
Author Name Unknown Organization [facility] Address [address] [facility] [address] Phone [phone] Care Team Providers Care Mental Hygienist Name Role Phone Stanford Mays MD Primary Care Provider [phone] Encounter Details Date Type Department Care Team (Late st Contact Info) Description 09/26/2023 Orders Only Family Medicine [address] [place] [phone] Stanford Mays MD [address] [place] [address] [place] [address] Allergies Active Allergy Reactions Criticality Noted Date Comments Aspirin 01/28/2022 Other reaction(s): bloody nose Salicylates 08/08/2001 nose bleeds documented as of this encounter (statuses as of 09/26/2023) Medications Medication Sig Dispensed Refills Start Date [...] as of this encounter (statuses as of 09/26/2023) Active Problems Problem Noted Date Diagnosed Date 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 07/05/2023 BMI 39.0-39.9,adult 06/21/2023 Overview: 277 Hepatic encephalopathy 03/28/2022 Overview: admitted [facility], ammonia 110 Aortic stenosis, moderate 01/21/2022 Thrombocytopenia [...] as of this encounter (statuses as of 09/26/2023) Resolved Problems Problem Noted Date Diagnosed Date [...] as of this encounter (statuses as of 09/26/2023) Immunizations Name Administration Dates Next Due COVID-19 [...] Description 11/06/2023 2:45 PM EST Imaging Radiology [facility] 1st [facility], [address] [place] [address] 11/09/2023 9:00 AM EST Office Visit Gastroenterology, [facility] [address] [place] [address] Ren Pineda CRNP [address] [place] [address] 12/06/2023 8:00 AM EST Nurse Only Ancillary [address] [place] [address] Nurse [place] [address] [place] [address] 12/22/2023 9:00 AM EST Office Visit Family Medicine [address] [place] [phone] Krystian Palomo MD [address] [place] [address] [place] [address] 01/05/2024 8:00 AM EST Nurse Only Ancillary [address] [place] [address] Nurse [place] [address] [place] [address] 01/11/2024 9:30 AM EDT Procedure Only Endoscopy, [facility] [address] [place] [address] Jayla Armstrong MD [facility] [employer] [address] [place] [id number] Scheduled Procedures Name Priority Associated Diagnoses Date/Ti [...] - Td or Tdap) 07/13/2021 07/13/2011, 10/30/2004 COVID-19 Vaccine ( season) 2023 10/18/2021, 03/08/2021, 02/23/2021 Albumin/Creatinine Ratio 12/06/2023 023, 11/03/2021, 04/29/2021, Additional history exists B-12 12/06/2023 12/06/2022, 12/29, 11/24/2020, Additional history exists HbA1c 03/18/2024 09/18/2023, 05/31, 12/06/2022, Additional history exists COLONOSCOPY-EVERY 5 YRS AGES 18-100 06/07/2024 06/07/2019, 05/21/2010 Diabetic Foot Exam 06/21/2024 06/21/2023, 0 07/06/2022, 04/29/2021, Additional history exists GFR 09/18/2024 09/18/2023, 1001/2023, 06/21/2023, Additional history exists Diabetic Eye Exam 09/26/2024 09/20/2023, , 03/16/2021, Additional history exists Lipid Panel 09/18/2028 09/18/2023, 05/31, 03/09/2022, Additional history exists Hepatitis B Completed 07/05/2023, 080 05/2023, 12/16/2021, Additional history exists Influenza Vaccine (FLU shot) Completed 10/2022, 06/30/2022, 07/30/2021, Additional history exists GARDASIL-HPV IMMUNIZATION SERIES Aged Out No longer eligible based on patient's age to complete this topic MENINGOCOCCAL (MENACTRA/MENVEO) Aged Out No longer eligible based on patient's age to complete this topic documented as of this encounter Medical Devices Implanted Type Area Beader Device Identifier Shelf Expiration Date Model / Serial / Lot Syr Pf 2ml Embospheres 100-300 - [id number] Implanted:Qty: 1 on 08/02/2023 at [facility] [employer] [id number] 02/26/2026 S220 / / [id number] documented as of this encounter Procedures Procedure Name Priority Date/Time Associated Diagnosis Comments DIABETIC EYE EXAM Routine 09/20/2023 documented in this encounter Results * DIABETIC EYE EXAM (09/20/2023) 09/20/2023 History Per Patient OTHER OUTSIDE LAB (SEE SCANNED REPORT) documented in this encounter Care Teams Mental Hygienist Relationship Specialty Start Date End Date Stanford Mays MD [address] [place] [address] [place] [address] PCP - General Family Medicine 04/05/19 documented as of this encounter
--- OUTSIDE RECORDS SUMMARY | 2023-10-04 09:16 | External Medical Summary | Summary of Care ---
Author Name Unknown Organization [facility] Address [address] [place] [address] Phone [phone] Care Team Providers Care Artist Relationship Manager Name Role Phone Hector Corrales MD Primary Care Provider Reason for Visit * Reason Comments Pre-Transplant Evaluation Encounter Details Date Type Department Care Team (Late st Contact Info) Description 09/18/2023 8:00 AM EST Office Visit Transplant Clinic, [place] [address] [place], [place] [id number] Dony Hansen MD [address] [place] [address] Avni Hall MD [address], [place] [id number] Nurse [facility] [address] [place] [address] Violet oSmmer LSW [address], [place] [id number] Pre-transplant evaluation for chronic liver disease* Allergies Active Allergy Reactions Criticality Noted Date [...] Overview: 277 Hepatic encephalopathy 03/28/2022 Overview: admitted [facility], ammonia 110 Aortic stenosis, moderate 01/21/2022 [...] Never Smokeless Tobacco: Former Chew Quit: 05/18/2005 Tobacco Cessation:Counseling Given: Not Answered Alcohol Use Standard Drinks/Week Comments No 0 [...] on file documented as of this encounter Last Filed Vital Signs Vital Sign Reading Time Taken Comments Blood Pressure 146/94 09/18/2023 7:45 AM EST Pulse 114 09/18/2023 7:45 AM EST Temperature 36.7 C (98 F) 09/18/2023 7:44 AM EST Respiratory Rate - - Oxygen Saturation - - Inhaled Oxygen Concentration - - Weight 130.3 kg (287 lb 3.2 oz) 09/18/2023 7:44 AM EST Height 181 cm (5' 11.26") 09/18/2023 7:44 AM EST Body Mass Index 39.76 09/18/2023 7:44 AM EST documented in this encounter Progress Notes * Violet Sommer LSW - 09/18/2023 2:47 PM EST Patient identified by verbal name and date of . BACKGROUND INFO DIAGNOSIS: Pre-Liver Transplant Evaluation PRESENT AT INTERVIEW: Patient; his brother, Leoncio; and his [id number], Snow CURRENT SOCIAL STATUS: Single, Never HOUSEHOLD COMPOSITION: Patient lives with his mother in the family home. His brother, Cory lives at home as well. RELEVANT SOCIAL/FAMILY HISTORY: Patient reports he has always lived in [place], [place]. His father is . His mother is 90 yo and functionally independent. Patient reports he is the youngest of five. One of his brothers and his sister are . His brother, Cory lives in the home as well. His brother Leoncio and his Vincent Adamson live next door. He has never been and has no children. He and his family describe a close and mutually supportive family. CURRENT LEVEL OF FUNCTIONING: Patient reports he remains functionally independent. He notes he has had periods of encephalopathy but has been doing well recently. EDUCATION: Patient is a high school graduate. EMPLOYMENT: Patient reports he has worked at [employer] for nineteen years in [place]. He works 5pm to 2am. SPOUSES EMPLOYMENT STATUS: N/A INCOME/FINANCIAL STATUS: Patient denies any specific financial hardships at present. INSURANCE COVERAGE/COPAY ISSUE: No issues noted on interview today. PREVIOUS TRANSPLANTS: None EMOTIONAL/PSYCHOLOGICAL PROFILE UNDERSTANDING OF ILLNESS/TRANSPLANT PROCESS: Patient and his family were able to verbalize an adequate understanding of his illness as well as the transplant process. BARRIERS TO LEARNING: No issues noted on interview today. Patient responds to written/verbal information. IMPRESSION: Mr. Spencer presents today with euthymic mood and congruent affect. He is alert and oriented in all spheres and maintains good eye contact. He is casually dressed and neatly groomed. His speech is of normal rate and tone and his thoughts are well organized. His mood remains stable and he is easy to engage. SOCIAL PROBLEMS IDENTIFIED PSYCHIATRIC ILLNESS: Denies and no Sxs noted. S/I- Denies H/I- Denies DRUG & ALCOHOL USE: Denies MEDICAL NON-COMPLIANCE: Denies and none noted. COPING SKILLS IDENTIFIED: Patient notes he enjoys fishing. He did charles but reports his best friend,Mi, has been diagnosed with renal cell carcinoma and he no longer hunts so he hasn't been hunting either. He enjoys spending time with his family and Mi and his family. He admits while working this schedule, much of his time is spent sleeping. DISCUSSION OF AN LRD: None noted. Durable Healthcare Power of Behavioral Health Care Manager discussed; information provided. SOCIAL WORK ASSESSMENT/RECOMMENDATION: Social Support: Low - Good support, stable committed relationship; caregiver(s) able to provide assistance Financial/Insurance: Low - Stable access to healthcare (insurance); work history; good resources;adequate income to meet needs Compliance: Low - Good understandingof medical situation;hx of good follow through on medical recommendations; ability to self manage; able to manage meds and treatment plan Functional Status: Low - Active; excercises; independent Cognitive function: Low - No evidences of cognitive decline/memory deficits; executive functions (ability to organize and follow through with new information) seem intact; no current/historical mental retardation/impairments in adaptive functioning; no current or historical alternative/adaptive learning plans; such as IEP Mental Health: Low - No current or past history of mental illness; No current symptoms; Intact mental status; No family history of mental illness; No past abuse, neglect, loss or other trauma Coping: Low - Identifiable healthy coping skills; History of coping well with stress; Insightful, able to identify needs and seek assistance Substance Abuse: Low - No use or limited use of alcohol; No drug use, including tobacco; No evidence of history of abuse/dependency Legal Issues: Low - Never any legal issues Understanding of Transplant process: Low - Realistic; aware of risks and benefits Motivation for transplant: Low - Self-motivated for transplant as part of continuum of care Overall, per above, patient has a low psychosocial risk profile score and seems to be an appropriate transplant candidate from a psychosocial perspective at this time. Violet Sommer LCSW Patient needs to be presented at Selection Conference within 3 months of this psychosocial evaluation. If there is a delay, additional Social Work consultation may be required. * Avni Hall MD - 09/18/2023 1:16 PM EST Seen by Dr. Grayson * Devorah Laguerre OSA - 09/18/2023 11:16 AM EST The intent behind this form is to provide accurate insurance information to designate roles of existing coverage, but also to determine patient eligibility for additional state benefits. REASON FOR APPOINTMENT: Pre -Hall Eval The following information has been provided by the patient: Lloyd Spencer [id number] 1965 [id number] [address] [place] [id number] (work) Are you a [place] citizen: Yes Are you working: No How long have you been employed with your company? N/A Do you plan to change jobs or employers? N/A Primary Care: Hector Corrales MD Are you on a Transplant list elsewhere: no Are you currently on Dialysis: No INSURANCE COVERAGE: Payor: LORENZO THOMAS ALEX ([facility]) Plan: [employer] LORENZO THOMAS Product Type: *No Product type* Prescription coverage: Yes, [employer] Medicare Part D plan: NO Do you know your pharmacy plan coverage? YES How much do you pay in co-pays or co-insurance? 0 Were all your insurance cards scanned in our system today? NO [employer] HAS OUTLINED THE FOLLOWIN. Patient Financial Expectations 2. Billing Process 3. Insurance Information 4. Demographic Information 5. Financial Counselor Information 6. Change of Information Procedure Recommendations: NONE Action to be taken: NONE Patient verbalizes and agrees with all the above information. XIOMARA Lo * Del Grayson MD - 09/18/2023 11:03 AM EST PRE-LIVER TRANSPLANT CONSULTATION AND EVALUATION PCP Hector Corrales MD Regular GI: Ren Pineda History of Present Illness: Mr Spencer is a 58 year old male with a history of cirrhosis due to nonalcoholic steatohepatitis. He was found to have liver masses (2.8 x2.4 cm and 1.1x1.2 cm) on MRI most likely hepatocellular carcinoma. He underwent bland embolization of the larger lesion No h/o GI. 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 Was accompanied buy his and brother. Risk factors for hepatitis C:No HepC therapy: No HepC cleared:No GI bleed: No Encephalopathy: Yes Ascites;No SBP: no TIPS: no Fatigue: no Muscle wasting: no Anorexia: no Actively no IVDA: no Previous transplants: no Blood transfusions: no Serious infections: no Coronary disease: no Malignancy Yes Renal disease: no Hepatitis B Surface Ab positive: no Vaccinated: Yes. 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 BMI 35.0-35.9,adult Cancer, hepatocellular (HCC) Diverticulitis of colon Diverticulosis of colon DM type 2, goal A1c below 7 02/26/2010 HGBA1C 7.5 Family history of colon cancer Mother, Neema Spencer Fracture of rib of right side 12/21/2013 cortical fx anterior right 9th rib Gout 08/08/2001 uric acid 9.0 Hepatic encephalopathy (HCC) 03/28/2022 admitted [facility], ammonia 110 Hyperlipidemia LDL goal < 100 Infection due to human metapneumovirus (hMPV) 01/27/2020 COVID neg Ingrown toenail of both feet 04/04/2022 both big toenails trimmed for ingrown nails [place] 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) 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 (nonalcoholic steatohepatitis) (HCC) Metabolic syndrome 11/04/2009 Morbid obesity with BMI of 40.0-44.9, adult (HCC) Need for hepatitis C screening test 02/11/2014 Hepatitis C negative Other abnormal glucose 11/04/2009 glucose 192 Other acute rheumatic heart disease 1971 was on pcn for 11 years. Screening for HIV (human immunodeficiency virus) 12/11/2014 negative Thrombocytopenia (HCC) 05/21/2020 84,000 Thrombosed external hemorrhoid 01/18/2013 [facility] ER Urinary retention 08/27/2023 maybe from constipation? [facility] Past Surgical History: Procedure Laterality Date ABD/PELVIS CT W/O IV AND W/O PO CONTRAST 03/30/2010 diverticulitis, [facility] COLONOSCOPY, DIAGNOSTIC (RECTUM) 06/07/2019 normal, repeat 5 yrs/[facility] COLORECTAL CANCER SCREEN; COLON 05/22/2010 wnl , repeat in [address] ABD/PELVIS W IV AND W ORAL CONTRAST 05/10/2020 3 mm nonobstructing right ureteral calculus ECHO EXAM OF HEART (2D ECHO) 07/14/2022 normal LV size and function, EF 55%, grade 2 diastolic dysfunction calcified moderate aortic stenosis EGD, FLEXIBLE, DIAGNOSTIC 08/04/2021 normal/ESOPHAGOGASTRODUODENOSCOPY (EGD), FLEXIBLE, TRANSORAL, DIAGNOSTIC performed by Gerardo Workman MD at ENDOSCOPY [facility] EGD, FLEXIBLE, DIAGNOSTIC 07/04/2023 Portal hypertensive gastropathy., esophagus and duodenuum normal (EGD), FLEXIBLE, TRANSORAL, DIAGNOSTIC performed by Juli Krause DO at ENDOSCOPY [facility] FOBT (EIA) 08/27/2023 negative IR CANCER CHEMO EMBOLIZATION (TACE) 08/02/2023 MRI ABDOMEN W CONTRAST 06/09/2023 2 spots in liver suggestive of hepatocellular carcinoma, varices, GB thickened, splenomegaly. cirrhotic liver STRESS ECHO (EXERCISE) 11/30/2006 normal, EF 60% \\ Family History Adopted: Yes Problem Relation Age of Onset Hypertension Mother Cancer Mother colon Colon cancer Mother Emphysema Father Other (black lung) Father Hypertension Father Diabetes Father Other (cornea transplant) Father Rheum arthritis Sister Hypertension Sister Irritable Bowel Syndrome Brother Hypertension Brother Diabetes Brother Other (pacemaker) Brother Liver disease Brother Arthritis Brother Other (cancer ) Brother back Other (sepsis) Brother Hypertension Brother Heart attack Brother Diabetes Brother Hyperlipidemia Brother No Known Problems Brother Social History Socioeconomic History Marital status: Single Spouse name: Not on file Number of children: 0 Years of education: Not on file Highest education level: Not on file Occupational History 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 Employer: [employer] Tobacco Use Smoking status: Never Smokeless tobacco: Former Types: Chew Quit date: 05/18/2005 Vaping Use Vaping Use: Never used Substance and Sexual Activity Alcohol use: No Drug use: No Sexual activity: Not on file Other Topics Concern Not on file Social History Narrative Not on file Social Determinants of Health Financial Resource Strain: Not on file Food Insecurity: Not on file Transportation Needs: Not on file Physical Activity: Not on file Stress: Not on file Social Connections: Not on file Intimate Partner Violence: Not on file Housing Stability: Not on file Current Outpatient Medications Medication Sig Dispense Refill Multivitamin Adult Oral Tablet daily . Vitamin C 1000 MG Oral Tablet daily . metFORMIN HCl 500 MG Oral Tablet (Glucophage) TAKE ONE TABLET BY MOUTH TWICE DAILY WITH MORNING ANDEVENING MEALS 180 Tablet 3 Lactulose 10 GM/15ML Oral Solution (Constulose) TAKE 45ML THREE TIMES DAILY,IN THE MORNING, AT NOON, AND BEDFORE BEDTIME 4050 mL 5 Pioglitazone HCl 30 MG Oral Tablet (Actos) Take 1 Tablet by mouth in the morning. 90 Tablet 1 Glimepiride 1 MG Oral Tablet (Amaryl) TAKE ONE TABLET BY MOUTH EVERY DAY WITH THE FIRST MAIN MEAL OF THE DAY FOR DIABETES 90 Tablet 1 Furosemide 20 MG Oral Tablet (Lasix) Take 1 Tablet by mouth in the morning. 90 Tablet 2 Xifaxan 550 MG Oral Tablet (rifAXIMin) TAKE ONE TABLET BY MOUTH EVERY MORNING AND ONE TABLET AT BEDTIME 60 Tablet 12 Allopurinol 300 MG Oral Tablet (Zyloprim) Take 1 Tablet by mouth in the morning. 90 Tablet 1 Atorvastatin Calcium 20 MG Oral Tablet (Lipitor) Take 1 Tablet by mouth in the morning. 90 Tablet 1 Omeprazole 20 MG Oral Capsule Delayed Release (PriLOSEC) Take 1 Capsule by mouth in the morning. 1 hour before the first meal of the day. 90 Capsule 3 Mupirocin 2 % External Ointment (Bactroban) Apply topically to affected area 3 times a day. At hospital discharge No current facility-administered medications for this visit. Review of patient's allergies indicates: Allergen Reactions Aspirin Other reaction(s): bloody nose Salicylates nose bleeds Review of Systems: ROS: Skin: + easy bruising Eyes: wears colored contacts ENT: negative Respiratory No Cardiovascular: negative GI: negative : negative Heme: negative Musculoskeletal: pt denies significant joint pain or stiffness Neuro: negative Psych: negative Endo: negative Physical Examination: BP 146/94 | Pulse 114 | Temp 36.7 C (98 F) | Ht 1.81 m (5' 11.26") | Wt 130.3 kg (287 lb 3.2 oz) | BMI 39.76 kg/m | BSA 2.56 m Constitutional: alert, healthy. Eyes: conjunctiva non-injected, sclera white Ears: pinna normal shape and color Nose: no mucosal erythema, no mucosal edema and no purulent discharge Mouth: no exudate, no erythema, lips, mucosa, and tongue normal and multiple broken teeth in upper row from recent fall Neck: supple, no adenopathy Lungs: clear to auscultation, breath sounds are equal and symmetric Heart: regular rate & rhythm and no murmur, gallops or rubs Abdomen: soft, non-tender, Central obesity Back: normal curvature, normal ROM, no CVA tenderness Extremities: no joint deformities, effusion, or inflammation, no edema, no skin discoloration Neuro: alert, gait normal, motor normal Skin: no obvious rashes or significant lesions Pulses: Palpable femoral pulses Laboratory Data/ Radiology Imaging: I personally reviewed the patient's available laboratory data and liver function tests. I personally evaluated this patient with an interview, physical examination, review of medications, previous medical records, and any current radiological testing. Discussion: I have personally interviewed the patient and performed a pertinent physical examination. I personally formulated the above assessment and plan based on the information available to me today. My assessment was discussed in detail with the patient and all feasible options were entertained. Ample time was allotted for discussion of my findings and then all questions were answered in detail to the patient's satisfaction. With respect to surgical complications, I reviewed the risks of bleeding, infection (intra-abdominal, wound, pneumonia), delayed graft function, primary graft non-function, graft thrombosis (hepatic artery & portal vein), bile duct complications (anastomotic strictures, leaks), rejection, both acute and chronic, risk of incisional hernia post surgery, long-term implication of immunosuppression such as viral infections and certain malignancies and also the risk of mortality associated with any surgical procedure. Once the evaluation is completed, we will discuss the patient with other members [facility]. Assessment/Plan: Mr Spencer is a 58 year old male with a history of cirrhosis due to nonalcoholic steatohepatitis. He was found to have liver masses (2.8 x2.4 cm and 1.1x1.2 cm) on MRI most likely hepatocellular carcinoma. He underwent bland embolization of the larger lesion No h/o GI. 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 Was accompanied buy his and brother. MELD 3.0: 20 at 08/02/2023 9:17 AM Calculated from: Serum Creatinine: 0.9 mg/dL (Using min of 1 mg/dL) at 08/02/2023 9:17 AM Serum Sodium: 133 mmol/L at 08/02/2023 9:17 AM Total Bilirubin: 3.2 mg/dL at 08/02/2023 9:17 AM Serum Albumin: 2.7 g/dL at 08/02/2023 9:17 AM INR(ratio): 1.7 at 08/02/2023 9:17 AM Age at listing (hypothetical): 57 years Sex: Male at 08/02/2023 9:17 AM Last HB A1C 6.3. On oral hypoglycemics. Central obesity. Not prohibitive. Recommend 20 30 pound weight loss. Cardio clearance. Age appropriate cancer screening. Good surgical candidate. I spent a total of Greater than 55 mins (exact time 56 mins) on the date of service in preparation,delivery, and documentation of the care provided to Lloyd Spencer excluding any time spent in the performance of separately billed services. Del Grayson MD * Dony Hansen MD - 09/18/2023 10:05 AM EST Images from the original note were not included. HEPATOLOGY LIVER TRANSPLANT EVALUATION OP Transplant Clinic, [address] [address] 09/18/2023 10:11 AM Patient name: Lloyd Spencer : 1965 PCP AND REFERRING PHYSICIAN: Hector Corrales MD, Hector Corrales MD Regular GI: Ren Pineda Chief Complaint: Pre-transplant evaluation History of Current Illness: [id number] Johanna is a 58 year old male with a history of cirrhosis due to nonalcoholic steatohepatitis. He was found to have liver masses (2.8 x2.4 cm and 1.1x1.2 cm) on MRI most likely hepatocellular carcinoma. He underwent bland embolization of the larger lesion No h/o GI. He has h/o confusion, disorientation 4 times; he required hospitalization twice. He has h/o pedal edema but he is not on diuretics anymore. H/o DM, No h/o CAD or stroke. No recent h/o UTI or pneumonia Last colonoscopy was in 2019 which was normal. Last PSA was 3 years ago which was normal. 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 He has two broke toes on the left foot when he stubbed his foot. Otherwise he has normal ADLs Review of systems: A 14-point ROS was negative except as mentioned above in HPI. 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 BMI 35.0-35.9,adult Cancer, hepatocellular (HCC) Diverticulitis of colon Diverticulosis of colon DM type 2, goal A1c below 7 02/26/2010 HGBA1C 7.5 Family history of colon cancer MotherNeema Fracture of rib of right side 12/21/2013 cortical fx anterior right 9th rib Gout 08/08/2001 uric acid 9.0 Hepatic encephalopathy (HCC) 03/28/2022 admitted [facility], ammonia 110 Hyperlipidemia LDL goal < 100 Infection due to human metapneumovirus (hMPV) 01/27/2020 COVID neg Ingrown toenail of both feet 04/04/2022 both big toenails trimmed for ingrown nails [place] 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) 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 (nonalcoholic steatohepatitis) (HCC) Metabolic syndrome 11/04/2009 Morbid obesity with BMI of 40.0-44.9, adult (HCC) Need for hepatitis C screening test 02/11/2014 Hepatitis C negative Other abnormal glucose 11/04/2009 glucose 192 Other acute rheumatic heart disease 1971 was on pcn for 11 years. Screening for HIV (human immunodeficiency virus) 12/11/2014 negative Thrombocytopenia (HCC) 05/21/2020 84,000 Thrombosed external hemorrhoid 01/18/2013 [facility] ER Urinary retention 08/27/2023 maybe from constipation? [facility] Past Surgical History Past Surgical History: Procedure Laterality Date ABD/PELVIS CT W/O IV AND W/O PO CONTRAST 03/30/2010 diverticulitis, [facility] COLONOSCOPY, DIAGNOSTIC (RECTUM) 06/07/2019 normal, repeat 5 yrs/[facility] COLORECTAL CANCER SCREEN; COLON 05/22/2010 wnl , repeat in [address] ABD/PELVIS W IV AND W ORAL CONTRAST 05/10/2020 3 mm nonobstructing right ureteral calculus ECHO EXAM OF HEART (2D ECHO) 07/14/2022 normal LV size and function, EF 55%, grade 2 diastolic dysfunction calcified moderate aortic stenosis EGD, FLEXIBLE, DIAGNOSTIC 08/04/2021 normal/ESOPHAGOGASTRODUODENOSCOPY (EGD), FLEXIBLE, TRANSORAL, DIAGNOSTIC performed by Gerardo Workman MD at [facility]COPY [facility] EGD, FLEXIBLE, DIAGNOSTIC 07/04/2023 Portal hypertensive gastropathy., esophagus and duodenuum normal (EGD), FLEXIBLE, TRANSORAL, DIAGNOSTIC performed by Juli Krause DO at ENDOSCOPY [facility] FOBT (EIA) 08/27/2023 negative IR CANCER CHEMO EMBOLIZATION (TACE) 08/02/2023 MRI ABDOMEN W CONTRAST 06/09/2023 2 spots in liver suggestive of hepatocellular carcinoma, varices, GB thickened, splenomegaly. cirrhotic liver STRESS ECHO (EXERCISE) 11/30/2006 normal, EF 60% Social History @SOCHXR@ Family history Family History Adopted: Yes Problem Relation Age of Onset Hypertension Mother Cancer Mother colon Colon cancer Mother Emphysema Father Other (black lung) Father Hypertension Father Diabetes Father Other (cornea transplant) Father Rheum arthritis Sister Hypertension Sister Irritable Bowel Syndrome Brother Hypertension Brother Diabetes Brother Other (pacemaker) Brother Liver disease Brother Arthritis Brother Other (cancer ) Brother back Other (sepsis) Brother Hypertension Brother Heart attack Brother Diabetes Brother Hyperlipidemia Brother No Known Problems Brother Medications: Current Outpatient Medications Medication Sig Dispense Refill Multivitamin Adult Oral Tablet daily . Vitamin C 1000 MG Oral Tablet daily . metFORMIN HCl 500 MG Oral Tablet (Glucophage) TAKE ONE TABLET BY MOUTH TWICE DAILY WITH MORNING ANDEVENING MEALS 180 Tablet 3 Lactulose 10 GM/15ML Oral Solution (Constulose) TAKE 45ML THREE TIMES DAILY,IN THE MORNING, AT NOON, AND BEDFORE BEDTIME 4050 mL 5 Pioglitazone HCl 30 MG Oral Tablet (Actos) Take 1 Tablet by mouth in the morning. 90 Tablet 1 Glimepiride 1 MG Oral Tablet (Amaryl) TAKE ONE TABLET BY MOUTH EVERY DAY WITH THE FIRST MAIN MEAL OF THE DAY FOR DIABETES 90 Tablet 1 Furosemide 20 MG Oral Tablet (Lasix) Take 1 Tablet by mouth in the morning. 90 Tablet 2 Xifaxan 550 MG Oral Tablet (rifAXIMin) TAKE ONE TABLET BY MOUTH EVERY MORNING AND ONE TABLET AT BEDTIME 60 Tablet 12 Allopurinol 300 MG Oral Tablet (Zyloprim) Take 1 Tablet by mouth in the morning. 90 Tablet 1 Atorvastatin Calcium 20 MG Oral Tablet (Lipitor) Take 1 Tablet by mouth in the morning. 90 Tablet 1 Omeprazole 20 MG Oral Capsule Delayed Release (PriLOSEC) Take 1 Capsule by mouth in the morning. 1 hour before the first meal of the day. 90 Capsule 3 Mupirocin 2 % External Ointment (Bactroban) Apply topically to affected area 3 times a day. At hospital discharge No current facility-administered medications for this visit. No herbal supplements Review of patient's allergies indicates: Allergen Reactions Aspirin Other reaction(s): bloody nose Salicylates nose bleeds PHYSICAL EXAM: BP 146/94 | Pulse 114 | Temp 36.7 C (98 F) | Ht 1.81 m (5' 11.26") | Wt 130.3 kg (287 lb 3.2 oz) | BMI 39.76 kg/m | BSA 2.56 m Constitutional: male, well developed, well nourished, and in no apparent distress General: alert, awake, oriented, healthy appearing, and in no acute distress Eyes: conjunctivae and sclerae are clear and non-icteric, pupils are equally round and reactive to light, and extra-ocular movements intact HENT: nares are patent , without discharge, oropharynx is clear, without erythema or exudates, and buccal mucosa is moist Neck: supple, there is no adenopathy, and no supraclavicular adenopathy is noted Lymph: No palpable lymphadenopathy CV: heart is regular rate and rhythm, without murmur, rub, or gallop Pulm: good respiratory effort and clear to percussion and auscultation GI: Abdomen is soft, non-tender, with normo-active bowel sounds in all four quadrants, no hepatosplenoegaly is appreciated, no masses are palpated, and no guarding or rebound noted Back: No CVA tenderness and no focal tenderness Musculoskeletal: Gait is normal. and Patient is able to transfer from sitting position to exam table without assistance. Extremities: no edema, joints not swollen, and no warmth Psychiatric: Mood is euthymic and Affect is appropriate for the situation Neuro: awake, alert, and oriented X 3, speech fluent, and gait normal Skin:No rashes were noted. Labs: Latest Reference Range & Units 08/02/23 09:17 Sodium 135 - 146 mmol/L 133 (L) Potassium 3.5 - 5.1 mmol/L 4.5 Chloride 98 - 107 mmol/L 102 CO2 22 - 32 mmol/L 24 BUN 6 - 20 mg/dL 13 Creatinine 0.6 - 1.2 mg/dL 0.9 Estimated Glomerular Filtration Rate >=60 mL/min >90 Anion Gap 7 - 15 mmol/L 7 Glucose 70 - 120 mg/dL 85 Calcium 8.4 - 10.2 mg/dL 8.8 Protein 6.0 - 8.3 g/dL 6.6 INR 0.8 - 1.2 1.7 (H) Prothrombin Time 11.6 - 15.2 seconds 20.0 (H) CBC Rpt ! WBC 4.00 - 10.80 K/uL 5.46 HGB 14.0 - 16.8 g/dL 12.3 (L) HCT 40.0 - 48.4 % 35.3 (L) MCV 82.0 - 99.5 fL 107.3 PLT 140 - 400 K/uL 79 (L) Albumin 3.8 - 5.0 g/dL 2.7 (L) AST 10 - 50 U/L 77 (H) ALT 10 - 50 U/L 50 Alkaline Phosphatase 35 - 130 U/L 127 Bilirubin, Total <=1.2 mg/dL 3.2 (H) Latest Reference Range & Units 06/21/23 09:49 Triglycerides <=174 mg/dL 77 Cholesterol <200 mg/dL 152 Non-HDL Cholesterol <=159 mg/dL 120 HDL Cholesterol >39 mg/dL 32 (L) LDL Cholesterol <=129 mg/dL 105 Latest Reference Range & Units 11/03/21 09:44 04/29/22 10:49 12/06/22 09:32 06/21/23 09:49 Hemoglobin A1C 4.0 - 5.6 % 6.6 (H) 5.9 (H) 6.0 (H) 6.3 (H) (H): Data is abnormally high Imaging Studies: Narrative & Impression EXAM MRI LIVER W WO CONTRAST-06/09/2023 12:18 pm HISTORY cirrhosis, liver lesion COMPARISON Ultrasound 04/10/2023 TECHNIQUE Pre and post gadolinium enhanced multiplanar MRI Abdomen FINDINGS Liver:Cirrhotic morphology of the liver. No steatosis. Observations include: -28 x 24 mm segment 6 image 36 series 13 and image 34 series 17. This demonstrates arterial phase hyperenhancement with delayed washout, pseudo capsule, and diffusion restriction, suspicious for hepatocellular carcinoma. LIRADS 5. -11 x 12 mm inferior right hepatic lobe anteriorly image 45 series 13 and image 42 series 17. This demonstrates arterial phase hyperenhancement with delayed washout and pseudo capsule formation with diffusion restriction suspicious for hepatocellular carcinoma. LIRADS 5. Gallbladder/biliary tree: Mild gallbladder wall thickening and pericholecystic fluid is most likelyrelated to underlying liver disease. There is no intrahepatic or extrahepatic biliary ductal dilatation or gallstone. Pancreas: Within normal limits. Spleen:Splenomegaly. Spleen measures 15.8 cm long. No focal splenic lesion. Adrenal glands: Within normal limits. Kidneys: Within normal limits. Bowel: No bowel dilatation. Lymph nodes: No adenopathy. Peritoneum/retroperitoneum: Small ascites. Vessels: Large perisplenic and left retroperitoneal portosystemic varices are present. Hepatic, portal, splenic, and superior mesenteric veins are patent without thrombosis. No abdominal aortic aneurysm. There appears to be conventional anatomy of the celiac axis and hepatic artery, not well seen on the current exam. Abdominal wall/soft tissues: Small fluid-filled umbilical hernia partly visualized. Bones: Within normal limits. Lung bases: Within normal limits. IMPRESSION IMPRESSION Cirrhosis of the liver with portal hypertension. Splenomegaly, portosystemic varices, and small ascites. Two observations in the right hepatic lobe measure 28 x 24 mm and 11 x 12 mm, both LIRADS 5. Assessment: Lloyd Spencer is a 58 year old male with decompensated cirrhosis MELD 3.0: 20 at 08/02/2023 9:17 AM MELD-Na: 20 at 08/02/2023 9:17 AM Calculated from: Serum Creatinine: 0.9 mg/dL (Using min of 1 mg/dL) at 08/02/2023 9:17 AM Serum Sodium: 133 mmol/L at 08/02/2023 9:17 AM Total Bilirubin: 3.2 mg/dL at 08/02/2023 9:17 AM Serum Albumin: 2.7 g/dL at 08/02/2023 9:17 AM INR(ratio): 1.7 at 08/02/2023 9:17 AM Age at listing (hypothetical): 57 years Sex: Male at 08/02/2023 9:17 AM Plan: 1. Hepatocellular carcinoma The number and size of the liver masses meet Custer criteria. The patients case will be discussed and reviewed at the next multi-disciplinary liver transplant listing meeting/liver tumor board for further management. 2. Ascites and / or peripheral edema: None 3. Esophageal varices: His recent EGD did not show any varices and only showed portal HTN gastropathy Will need to assess the status of esophageal varices. I placed a referral for a screening EGD in the near future. 4. Hepatic Encephalopathy: No overt evidence of HE. Will contonue Lactulose at the dosage of 20 gram 3-4 times a day, making sure there are at least 2-3 large, soft stools daily. The patient should continue Xifaxan 550mg twice a day. 5.Nutritional support: high protein (60-80 gms daily), low fat, low carbohydrate diet and low salt diet (at most 2 grams aday). Avoid salt containing manufactured food such as canned/boxed foods. Need to avoid liver toxins including herbal supplements. The patient should avoid excess tylenol and may take Acetaminophen 2 grams a week. Avoid NSAIDs. 6 Co-Morbid Medical Conditions: (a) Cardiac: The patient is at higher risk of CAD. Will need stress Echo/cardiac cath. Will need to be evaulatedby Cardiology for pre-transplant evaluation. (b) Pulmonary: The patient does not have signs of pulmonary disease. He stopped smoking 20 years ago. Overall a good candidate, needs cardiac testing and a PSA. Patient was explained the importance of above life-style modification changes and should follow-up with us in liver transplant clinic in 4 months with repeat labs. he should continue to follow-up with PCP to optimize other medical conditions. The above plan of care was discussed with the patient, for which understanding was demonstrated. Thank you referring your patient for the consultation and allowing us to particiapte in the care ofthis patient. Please do not hesitate and feel free to contact me if you have any questions. Dony Hansen MD Transplant Clinic, [address] [address] * Yeimy Childress RN - 09/18/2023 7:56 AM EST PRE LIVER INITIAL EVALUATION NURSING ASSESSMENT: INITIAL VISIT Organ: Liver Referring MD: PCP: HECTOR CORRALES [address] [place] [address] Dr [place], [place] [address] Referring MD for Pre Liver Transplant evaluation: CONCHIS Chandler and Dr. Chino Dumont BP 146/94 | Pulse 114 | Temp 36.7 C (98 F) | Ht 1.81 m (5' 11.26") | Wt 130.3 kg (287 lb 3.2 oz) | BMI 39.76 kg/m | BSA 2.56 m Body mass index is 39.76 kg/m. Allergies as of 09/18/2023 - Reviewed 09/18/2023 Allergen Reaction Noted Aspirin 01/28/2022 Salicylates 08/08/2001 HOSPITALIZATIONS: Was recently admitted to [facility] for altered mental status. Also had difficulties with urine retention. 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 Employer: [employer] Tobacco Use Smoking status: Never Smokeless tobacco: Former Types: Chew Quit date: 05/18/2005 Vaping Use Vaping Use: Never used Substance and Sexual Activity Alcohol use: No Drug use: No Sexual activity: Not on file Other Topics Concern Not on file Social History Narrative Not on file Social Determinants of Health Financial Resource Strain: Not on file Food Insecurity: Not on file Transportation Needs: Not on file Physical Activity: Not on file Stress: Not on file Social Connections: Not on file Intimate Partner Violence: Not on file Housing Stability: Not on file Immunizations: Current per patient BLOOD TRANSFUSION HISTORY: Blood Group: A GENERAL HEALTHE CARE ISSUES: History of Chicken Pox:Does not know Varicella Titer: Pending Vaccination: No Men's Issues: Age/Family History, Recommendation: PSA Colon CA Screening: Risks: Age/Family History/History of Polyps, recommendation - Colonoscopy - Cancer screening COMPLIANCE: Follows medical regime: YES Follows fluid restriction: NO Takes medications as prescribed: YES Misses appointments: NO LEARNING BARRIERS :None If patient is chosen by the liver committee to finish the evaluation, the following items need to be done: 2-D echo, Cardiology clearance Ischemic heart testing laboratory testing Chest CT Transplant evaluation process reviewed with patient. Explained MELD score and liver allocation process Transplant procedure and risks. Discussed the risks of infection/rejection,need for life long immunosuppression and potential side effects of these medications. Advised of importance in keeping post transplant appointments,getting labwork,taking medication as prescribed and adhering to physicans orders. Advised to abstain from alcohol now and post transplant as alcohol is a direct toxin to the new liver. Advised to read Pre Liver Transplant handbook and MELD phamphlet that was given to patient and instructed to call with any questions or concerns. Listing consent form was reviewed. Pre-Liver Transplant Information: The patient was given Pre-Transplant educational information including '[place] Authorization of Release of Medical Information', 'Advance Directives' information and Questions and Answers for Transplant Candidates and Families about Multiple Listing and Wait Time Transfer. The most current SRTR data for liver transplant was given to patient for review. Release date 05/04/2023. Questions answered. Verbalized understanding of information. A copy of the SRTR data was given to the patient. I provided one on one education to Lloyd, his sister- in- law Snow, and his brother Leoncio in the clinic room. MELD 3.0: 21 at 09/18/2023 11:41 AM Calculated from: Serum Creatinine: 1.0 mg/dL at 09/18/2023 11:41 AM Serum Sodium: 135 mmol/L at 09/18/2023 11:41 AM Total Bilirubin: 5.1 mg/dL at 09/18/2023 11:41 AM Serum Albumin: 2.5 g/dL at 09/18/2023 11:41 AM INR(ratio): 1.8 at 09/18/2023 11:41 AM Age at listing (hypothetical): 58 years Sex: Male at 09/18/2023 11:41 AM Yeimy Childress RN documented in this encounter Plan of Treatment Upcoming Encounters Date Type Department Care Team (Late st Contact Info) Description 11/06/2023 2:45 PM EST Imaging Radiology [address] 132 [facility] [place] [address] 11/09/2023 9:00 AM EST Office Visit Gastroenterology, [address] [place] [address] Ren Pineda CRNP 132 [facility] [place] [address] 12/06/2023 8:00 AM EST Nurse Only Ancillary [address] [place] [address] [place], Nurse [address] [place] [address] 12/22/2023 9:00 AM EST Office Visit Family Medicine [address] [place] [phone] Krystian Palomo MD [address] [place] [address] [place] [address] 01/05/2024 8:00 AM EST Nurse Only Ancillary [facility], [address] [place] [address] [place], Nurse [address] [place] [address] 01/11/2024 9:30 AM EDT Procedure Only Endoscopy, [facility] 132 [facility] [place] [address] Jayla Armstrong MD [address] [place] [id number] Scheduled Procedures Name Priority Associated Diagnoses Date/Ti [...] Additional history exists Hepatitis B Completed 07/05/2023, 05/2023, 12/16/2021, Additional history exists Influenza Vaccine (FLU shot) Completed 10/2022, 06/30/2022, 07/30/2021, Additional history exists GARDASIL-HPV IMMUNIZATION SERIES Aged Out No longer eligible based on patient's age to complete this topic MENINGOCOCCAL (MENACTRA/MENVEO) Aged Out No longer eligible based on patient's age to complete this topic documented as of this encounter Medical Devices Implanted Type Area Senior Graphic Designer Device Identifier Shelf Expiration Date Model / Serial / Lot Syr Pf 2ml Embospheres 100-300 - [id number] Implanted:Qty: 1 on 08/02/2023 at [facility] [employer] [id number] 02/26/2026 [id number] / / [id number] documented as of this encounter Visit Diagnoses Diagnosis Pre-transplant evaluation for chronic liver disease- Primary Other specified pre-operative examination documented in this encounter Care Teams Artist Relationship Manager Relationship Specialty Start Date End Date Hector Corrales MD [address] [place] [address] [place] [address] PCP - General Family Medicine 04/05/19 documented as of this encounter
--- OUTSIDE RECORDS SUMMARY | 2023-10-04 09:16 | External Medical Summary | Summary of Care ---
Author Name Unknown Organization [facility] Address [address] [place] [address] Phone [phone] Care Team Providers Care Computer Technologist Name Role Phone Stanford Mays MD Primary Care Provider Reason for Visit * Reason Onset Date Comments Pre-Transplant Evaluation 09/27/2023 Encounter Details Date Type Department Care Team (Late st Contact Info) Description 09/27/2023 Telephone Transplant Clinic, [address] [address] Yeimy Childress RN Pre-Transplant Evaluation Allergies Active Allergy Reactions Criticality Noted Date Comments Aspirin 01/28/2022 Other reaction(s): bloody nose Salicylates 08/08/2001 nose bleeds documented as of this encounter (statuses as of 09/27/2023) Medications Medication Sig Dispensed Refills Start Date [...] as of this encounter (statuses as of 09/27/2023) Active Problems Problem Noted Date Diagnosed Date 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 Spencer to review that his case was discussed at the liver committee meeting Monday evening. It is the decision of the transplant committee to continue to move forward with his liver transplant evaluation in anticipation of liver transplant listing. In order to complete his evaluation he will need to complete cardiac testing and be cleared by cardiology. He will also need to be evaluated by pulmonary for indeterminate lung nodules noted on recent Chest CT. Lastly, the surgeons recommend that he lose about 20-30 pounds. Lloyd verbalizes understanding of the requested testingand prefers to have the testing completed at [facility] documented in this encounter Plan of Treatment Upcoming Encounters Date Type Department Care Team (Late st Contact Info) Description 11/06/2023 2:45 PM EST Imaging Rad[facility] [place] [address] 11/09/2023 9:00 AM EST Office Visit Gastroenterology, [facility] [address] [facility] [place] [address] Ren Pineda CRNP 132 [facility] [place] [address] 12/06/2023 8:00 AM EST Nurse Only Ancillary [address] [place] [address] Nurse [place] [address] [place] [address] 12/22/2023 9:00 AM EST Office Visit Family Medicine [address] [place] [phone] Krystian Palomo MD [address] [place] [address] [place] [address] 01/05/2024 8:00 AM EST Nurse Only Ancillary [address] [place] [address] Nurse [place] [address] [place] [address] 01/11/2024 9:30 AM EDT Procedure Only Endoscopy, [facility] 132 [place] [address] Jayla Armstrong MD [address] [place] [id number] Scheduled Procedures Name Priority Associated Diagnoses Date/Ti [...] or Tdap) 07/13/2021 07/13/2011, 10/30/2004 COVID-19 Vaccine (4 - season) 2023 10/18/2021, 03/08/2021, 02/23/2021 Albumin/Creatinine Ratio 12/06/2023 023, 11/03/2021, 04/29/2021, Additional history exists B-12 12/06/2023 12/06/2022, 12/29, 11/24/2020, Additional history exists HbA1c 03/18/2024 09/18/2023, 05/31, 12/06/2022, Additional history exists COLONOSCOPY-EVERY 5 YRS AGES 18-100 06/07/2024 06/07/2019, 05/21/2010 Diabetic Foot Exam 06/21/2024 06/21/2023, 0 07/06/2022, 04/29/2021, Additional history exists GFR 09/18/2024 09/18/2023, 10/01/2023, 06/21/2023, Additional history exists Diabetic Eye Exam 09/20/2024 09/20/2023, , 03/16/2021, Additional history exists Lipid [...] this encounter Medical Devices Implanted Type Area Logistics Project Manager Device Identifier Shelf Expiration Date Model / Serial / Lot Syr Pf 2ml Embospheres 100-300 - [id number] Implanted:Qty: 1 on 08/02/2023 at [facility] [employer] [id number] 02/26/2026 [id number] / / [id number] documented as of this encounter Care Teams Computer Technologist Relationship Specialty Start Date End Date Stanford Mays MD [address] [place] [address] [place] [address] PCP - General Family Medicine 04/05/19 documented as of this encounter
--- OUTSIDE RECORDS SUMMARY | 2023-10-04 09:17 | External Medical Summary ---
Author Name Unknown Address Unknown Organization [id number]:[facility] [place] [address] [place] [address] Laboratory Report Ordering Provider Test Date Status ALICIA OLIVER 09/18/2023 11:41:47 Final Observation Date Value Abnormality Reference (Units ) Status SYNC LEUKOCYTES IN BLOOD BY AUTOMATED COUNT 09/18/2023 11:41:47 6.43 4.00-10.80 (K/uL) Final Segs 09/18/2023 11:41:47 61.2 40.0-75.0 (%) Final Lymphs % 09/18/2023 11:41:47 16.5 Below low normal 18.0-42.0 (%) Final Monos 09/18/2023 11:41:47 15.6 Above high normal 1.0-11.0 (%) Final Eosinophils 09/18/2023 11:41:47 4.5 0.0-6.0 (%) Final Basos 09/18/2023 11:41:47 1.9 0.0-2.0 (%) Final Immature Granulocyte, Percent 09/18/2023 11:41:47 0.3 0.0-2.0 (%) Final Absolute Segs 09/18/2023 11:41:47 3.94 1.80-7.70 (K/uL) Final Lymphs, absolute 09/18/2023 11:41:47 1.06 1.00-4.80 (K/ul) Final Monos, Abs 09/18/2023 11:41:47 1.00 0.00-1.10 (K/uL) Final Eos, Abs 09/18/2023 11:41:47 0.29 0.00-0.70 (K/uL) Final Basos, Abs 09/18/2023 11:41:47 0.12 0.00-0.20 (K/uL) Final Immature Granulocytes, Number 09/18/2023 11:41:47 0.02 0.00-0.20 (K/uL) Final Performing Location [facility] [place] [address] [facility] [address]
--- OUTSIDE RECORDS SUMMARY | 2023-10-04 09:17 | External Medical Summary ---
Author Name Unknown Address Unknown Organization [id number]:[facility] - [address] [place] [address] Laboratory Report Ordering Provider Test Date Status MICHELLE OLIVERVIN 09/18/2023 11:48:33 Final Observation Date Value Abnormality Reference (Units ) Status ABO 09/18/2023 11:48:33 A Final RH 09/18/2023 11:48:33 Positive Final Performing Location [facility] - [address] [place] [address]
--- OUTSIDE RECORDS SUMMARY | 2023-10-04 09:17 | External Medical Summary ---
Author Name Unknown Address Unknown Organization [id number]:LABORATORY [address] [place] [address] Laboratory Report Ordering Provider Test Date Status ALICIA OLIVER 09/18/2023 11:41:47 Final Observation Date Value Abnormality Reference (Units) Status Hepatitis B virus surface Ab [Units/volume] in Serum or Plasma by Immunoassay 09/18/2023 11:41:47 277.0 (mIU/mL) Final Hepatitis B virus surface Ab [Presence] in Serum by Immunoassay 09/18/2023 11:41:47 Positive Final HEPATITIS B SURFACE ANTIBODY, INTERPRETATION 09/18/2023 11:41:47 Immune to Hepatitis B Virus Final POSITIVE: >=11.5 mIU/mL
INDETERMINATE: 8.5-<11.5 mIU/mL
NEGATIVE: <8.5 mIU/mL Performing Location LABORATORY [address] [place] [address]
--- OUTSIDE RECORDS SUMMARY | 2023-10-04 09:17 | External Medical Summary ---
Author Name Unknown Address Unknown Organization [id number]:LABORATORY [facility] - [address] [place] [address] Laboratory Report Ordering Provider Test Date Status MICHELLE OLIVERVIN 09/18/2023 11:41:47 Final Observation Date Value Abnormality Reference (Units ) Status T4, Free 09/18/2023 11:41:47 1.5 0.9-1.7 (n g/dL) Final Performing Location LABORATORY [facility] - [address] [place] [address]
--- OUTSIDE RECORDS SUMMARY | 2023-10-04 09:17 | External Medical Summary ---
Author Name Unknown Address Unknown Organization [id number]:LABORATORY [facility] [place] - [facility] [address] [facility] [place] [address] Laboratory Report Ordering Provider Test Date Status ALICIA OLIVER 09/18/2023 11:41:47 Final Cutoff Concentrations:
Drug Level
Amphetamines 500 ng/mL
Benzodiazepines 100 ng/mL
Cannabinoids 50 ng/mL
Cocaine Metabolite 150 ng/mL
Fentanyl 1 ng/mL
Hydrocodone / Hydromorphone 300 ng/mL
Methadone Metabolite 100 ng/mL
Morphine / Codeine 300 ng/mL
Oxycodone / Oxymorphone 100 ng/mL

Screening results are presumptive and can only be used for medical purposes. Positive screening results are reflexed to confirmatory testing. Observation Date Value Abnormality Reference (Units ) Status Amphetamines, Urine screen 09/18/2023 11:41:47 Negative Negative Final Benzodiazepines, Urine screen 09/18/2023 11:41:47 Negative Negative Final Cannabinoids, Urine screen 09/18/2023 11:41:47 Negative Negative Final Cocaine Metabolite, Urine screen 09/18/2023 11:41:47 Negative Negative Final fentaNYL [Presence] in Urine by Screen method 09/18/2023 11:41:47 Negative Negative Final HYDROcodone [Presence] in Urine by Screen method 09/18/2023 11:41:47 Negative Negative Final 7-Egammusujo-1,5-Dimeth yl-3,3-Diphenylpyrrolid ine (EDDP) [Presence] in Urine 09/18/2023 11:41:47 Negative Negative Final Opiates, Urine screen 09/18/2023 11:41:47 Negative Negative Final oxyCODONE [Presence] in Urine by Screen method 09/18/2023 11:41:47 Negative Negative Final Performing Location LABORATORY [facility] - [address] [facility] [address] [facility] [place] [address]
--- OUTSIDE RECORDS SUMMARY | 2023-10-04 09:17 | External Medical Summary ---
Author Name Unknown Address Unknown Organization K01:LABORATORY [facility] - [address] [place] [address] Laboratory Report Ordering Provider Test Date Status ALICIA OLIVER 09/18/2023 11:41:47 Final Observation Date Value Abnormality Reference (Units ) Status Ethanol 09/18/2023 11:41:47 Negative Negative Final Performing Location LABORATORY [facility] - [address] [place] [address]
--- OUTSIDE RECORDS SUMMARY | 2023-10-04 09:17 | External Medical Summary ---
Author Name Unknown Address Unknown Organization K01:[place]ORY [facility] [place] [address] [place] [address] Laboratory Report Ordering Provider Test Date Status ALICIA OLIVER 09/18/2023 11:41:47 Final Observation Date Value Abnormality Reference (Units ) Status BUN 09/18/2023 11:41:47 7 6-20 (mg/dL) Final Creatinine 09/18/2023 11:41:47 1.0 0.6-1.2 (mg/dL) Final Glomerular filtration rate/1.73 sq M.predicted [Volume Rate/Area] in Serum, Plasma or Blood by Creatinine-based formula (CKD-EPI) 09/18/2023 11:41:47 >90 >=60 (mL/min) Final eGFR is calculated based on the CKD-EPI 2020 equation SODIUM 09/18/2023 11:41:47 135 135-146 (m mol/L) Final Potassium 09/18/2023 11:41:47 3.5 3.5-5.1 (m mol/L) Final Cl 09/18/2023 11:41:47 104 98-107 (mm ol/L) Final CO2 09/18/2023 11:41:47 21 Below low normal 22- 32 (mmol/L) Final Anion gap 09/18/2023 11:41:47 10 7-15 (mmol /L) Final Glucose 09/18/2023 11:41:47 121 Above high normal 70 -120 (mg/dL) Final Albumin 09/18/2023 11:41:47 2.5 Below low normal 3.8 -5.0 (g/dL) Final AST (Aspartate aminotransferase) 09/18/2023 11:41:47 74 Above high normal 10-50 (U/L) Final Alk Phos 09/18/2023 11:41:47 150 Above high normal 35 -130 (U/L) Final Bilirubin, Total 09/18/2023 11:41:47 5.1 Above high no rmal <=1.2 (mg/dL) Final Calcium 09/18/2023 11:41:47 8.6 8.4-10.2 ( mg/dL) Final Protein 09/18/2023 11:41:47 7.0 6.0-8.3 (g /dL) Final ALT (Alanine aminotransferase) 09/18/2023 11:41:47 40 10-50 (U/L) Christian bundy Performing Location LAB[facility]ATORY [facility] [place] [address] [facility] [address]
--- OUTSIDE RECORDS SUMMARY | 2023-10-04 09:17 | External Medical Summary ---
Author Name Unknown Address Unknown Organization K01:LABORATORY [facility] - [address] [place] [address] Laboratory Report Ordering Provider Test Date Status ALICIA OLIVER 09/18/2023 11:41:47 Final Observation Date Value Abnormality Reference (Units ) Status Magnesium 09/18/2023 11:41:47 1.8 1.5-2.6 (m g/dL) Final Performing Location [facility] - [address] [place] [address]
--- OUTSIDE RECORDS SUMMARY | 2023-10-04 09:17 | External Medical Summary ---
Author Name Unknown Address Unknown Organization K01:LABORATORY [facility] [place] [address] [place] [address] Laboratory Report Ordering Provider Test Date Status ALICIA OLIVER 09/18/2023 11:41:47 Final Observation Date Value Abnormality Reference (Units ) Status Alpha-Fetoprotein 09/18/2023 11:41:47 3.2 0. 0-8.3 (ng/mL) Final Performing Location LABORATORY [facility] [place] - [address] [place] [address]
--- OUTSIDE RECORDS SUMMARY | 2023-10-04 09:17 | External Medical Summary ---
Author Name Unknown Address Unknown Organization K01:LABORATORY [facility] - [address] [place] [address] Laboratory Report Ordering Provider Test Date Status ALICIA OLIVER 09/18/2023 11:41:47 Final Observation Date Value Abnormality Reference (Units ) Status Phosphate 09/18/2023 11:41:47 2.7 2.5-4.8 (m g/dL) Final Performing Location LAB[facility] - [address] [place] [address]
--- OUTSIDE RECORDS SUMMARY | 2023-10-04 09:17 | External Medical Summary ---
Author Name Unknown Address Unknown Organization K01:[place] [facility] [place] [address] [place] [address] Laboratory Report Ordering Provider Test Date Status ALICIA OLIVER 09/18/2023 11:41:47 Final Observation Date Value Abnormality Reference (Units ) Status Hep C Ab 09/18/2023 11:41:47 Negative Negative Final Performing Location LABORATORY [facility] - [address] [place] [address]
--- OUTSIDE RECORDS SUMMARY | 2023-10-04 09:17 | External Medical Summary ---
Author Name Unknown Address Unknown Organization K01:[place] [facility] [place] [facility] [address] [facility] [address] Laboratory Report Ordering Provider Test Date Status ALICIA OLIVER 09/18/2023 11:41:47 Final Observation Date Value Abnormality Reference (Units ) Status HIV 1+2 Ab+HIV1 p24 Ag [Presence] in Serum or Plasma by Immunoassay 09/18/2023 11:41:47 Negative Negative Final Negative HIV-1/2 antigen and antibody screening tset results usually indicate the absence of HIV-1 and HIV-2 infection. However, such negative results do not rule-out acute HIV infection. If acute HIV-1 infection is highly suspected, it is recommended that a specimen be submitted for detection of HIV-1 RNA. Performing Location LAB[place] [place] [facility] [address] [facility] [address]
--- OUTSIDE RECORDS SUMMARY | 2023-10-04 09:17 | External Medical Summary ---
Author Name Unknown Address Unknown Organization : Laboratory Report Ordering Provider Test Date Status ALICIA OLIVER 09/18/2023 11:41:47 Final Observation Date Value Abnormality Reference (Units ) Status Mycobacterium tuberculosis stimulated gamma interferon [Interpretation] in Blood Qualitative 09/18/2023 11:41:47 SEE BELOW Abnormal Final QuantiFERON-TB Plus,1T INDET ERMINATE *
Reference range: NEGATIVE
Results are indeterminate for response to ESAT-6 and/or
CFP-10 test antigens. Gamma interferon background [Units/volume] in Blood by Immunoassay 09/18/2023 11:41:47 0.02 (IU/mL) Final Mitogen stimulated gamma int erferon [Units/volume] corrected for background in Blood 09/18/2023 11:41:47 0.19 (IU/mL) Final Mycobacterium tuberculosis s timulated gamma interferon release by CD4+ T-cells [Units/volume] corrected for background in Blood 09/18/2023 11:41:47 0.00 (IU/mL) Final Mycobacterium tuberculosis s timulated gamma interferon release by CD4+ and CD8+ T-cells [Units/volume] corrected for background in Blood 09/18/2023 11:41:47 0.00 (IU/mL) Final The Nil tube value reflects the background interferon
gamma immune response of the patient's blood sample.
This value has been subtracted from the patient's
displayed TB and Mitogen results.
Lower than expected results with the Mitogen tube
prevent false-negative Quantiferon readings by detect-
ing a patient with a potential immune suppressive
condition and/or suboptimal pre-analytical specimen
handling.
The TB1 Antigen tube is coated with the M.
tuberculosis-specific antigens designed to elicit
responses from TB antigen primed CD4+ helper
T-lymphocytes.
The TB2 Antigen tube is coated with the M.
tuberculosis-specific antigens designed to elicit
responses from TB antigen primed CD4+ helper and CD8+
cytotoxic T-lymphocytes.
For additional information, please refer to
[email or web address].Ridejoy.[email or web address]/faq/[email or web address]
(This link is being provided for information/
educational purposes only.)

Test Performed at:
[facility]
[address]
[place] [address]
Huber Gayle M.D., Ph.D.,Director of Laboratories Performing Location
--- OUTSIDE RECORDS SUMMARY | 2023-10-04 09:17 | External Medical Summary ---
Author Name Unknown Address Unknown Organization K01:LABORATORY [facility] [place] - [address] [place] [address] Laboratory Report Ordering Provider Test Date Status ALICIA OLIVER 09/18/2023 11:41:47 Final Observation Date Value Abnormality Reference (Units ) Status Triglyceride 09/18/2023 11:41:47 98 <=174 ( mg/dL) Final Triglyceride Reference Range s (mg/dL):
<150 Acceptable
150-174 Borderline high
175-499 High
>=500 Very high Cholesterol 09/18/2023 11:41:47 156 <200 (mg /dL) Final Total Cholesterol Reference Ranges (mg/dL):
<200 Desirable
200-239 Borderline high
>=240 High HDL 09/18/2023 11:41:47 35 Below low normal >39 (mg/dL) Final HDL Cholesterol Reference Ra nges (mg/dL):
>=60 High (Desirable)
<50 Low (Undesirable) For Females
<40 Low (Undesirable) For Males NON-HDL CHOLESTEROL 09/18/2023 11:41:47 121 <=159 (mg/dL) Final Non-HDL Cholesterol Referenc e Range (mg/dL):
<100 Target level for high risk ASCVD patient
<130 Optimal for general population
130-159 Near optimal for general population
160-189 Borderline High
190-219 High
>=220 Very High LDL, (calculated) 09/18/2023 11:41:47 101 <= 129 (mg/dL) Final LDL Cholesterol Reference Ra nges (mg/dL):
<70 Target level for high risk ASCVD patient
<100 Optimal for general population
100-129 Near optimal for general population
130-159 Borderline high
160-189 High
>=190 Very high Performing Location LABORATORY [facility] [place] - [address] [place] [address]
--- OUTSIDE RECORDS SUMMARY | 2023-10-04 09:17 | External Medical Summary ---
Author Name Unknown Address Unknown Organization K01:LABORATORY [facility] [place] - [address] [address] Laboratory Report Ordering Provider Test Date Status ALICIA OLIVER 09/18/2023 11:41:47 Final Observation Date Value Abnormality Reference (Units ) Status Color of Urine by Auto 09/18/2023 11:41:47 Yellow Colorless, Light Yellow, Yellow, Dark Yellow Final Clarity, Urine 09/18/2023 11:41:47 Slightly Cloudy Abnormal Clear Final Glucose [Mass/volume] in Urine by Automated test strip 09/18/2023 11:41:47 Negative Negative (mg/dL) Final Bilirubin.total [Presence] in Urine by Automated test strip 09/18/2023 11:41:47 Negative Negative Final Ketones [Mass/volume] in Urine by Automated test strip 09/18/2023 11:41:47 Trace Abnormal Negative (mg/dL) Final Specific gravity, Urine 09/18/2023 11:41:47 1.026 1.003-1.030 Final Hemoglobin [Presence] in Urine by Automated test strip 09/18/2023 11:41:47 Negative Negative Final pH, Urine 09/18/2023 11:41:47 5.0 5.0-7.5 (Units) Final Protein [Mass/volume] in Urine by Automated test strip 09/18/2023 11:41:47 30 Abnormal Negative (mg/dL) Final Urobilinogen [Mass/volume] in Urine by Automated test strip 09/18/2023 11:41:47 Normal Normal (mg/dL) Final Nitrite [Presence] in Urine by Automated test strip 09/18/2023 11:41:47 Negative Negative Final Leukocyte esterase [Presence] in Urine by Automated test strip 09/18/2023 11:41:47 Negative Negative Final RBC, Urine 09/18/2023 11:41:47 0-2 0-2 (/HPF) Final WBC, Urine 09/18/2023 11:41:47 6-9 Abnormal 0-2 (/HPF) Final Bacteria [#/area] in Urine sediment by Microscopy high power field 09/18/2023 11:41:47 51-100 Abnormal 0-25 (/HPF) Final Calcium oxalate crystals [#/area] in Urine sediment by Microscopy high power field 09/18/2023 11:41:47 5-9 Abnormal None (/HPF) Final Mucus, Urine 09/18/2023 11:41:47 Many Abnormal None (/HPF) Final Hyaline casts, Urine 09/18/2023 11:41:47 1-4 Abnormal None (/LPF) Final Granular casts [#/area] in Urine sediment by Microscopy low power field 09/18/2023 11:41:47 1-4 Abnormal None (/LPF) Final Performing Location LABORATORY [facility] [place] - [facility] [address] [facility] [address]
--- OUTSIDE RECORDS SUMMARY | 2023-10-04 09:17 | External Medical Summary ---
Author Name Unknown Address Unknown Organization K01:[place]ORY [facility] [place] [address] [place] [address] Laboratory Report Ordering Provider Test Date Status ALICIA OLIVER 09/18/2023 11:41:47 Final Warfarin Therapy
INR: 2 .0-3.0 conventional anticoagulation
INR: 2.5- 3.5 high intensity anticoagulation Observation Date Value Abnormality Reference (Units ) Status PT 09/18/2023 11:41:47 21.0 Above high normal 11 .6-15.2 (seconds) Final INR 09/18/2023 11:41:47 1.8 Above high normal 0. 8-1.2 Final Performing Location LAB[facility]ORY [facility] [place] [address] [place] [address]
--- OUTSIDE RECORDS SUMMARY | 2023-10-04 09:17 | External Medical Summary ---
Author Name Unknown Address Unknown Organization K01:[place] [facility] [place] [address] [place] [address] Laboratory Report Ordering Provider Test Date Status MICHELLE OLIVERVIN 09/18/2023 11:41:47 Final Observation Date Value Abnormality Reference (Units ) Status Hep A, IgG and/or IgM 09/18/2023 11:41:47 Positive Abnormal Negative Final Performing Location LABORATORY C - [address] [place] [address]
--- OUTSIDE RECORDS SUMMARY | 2023-10-04 09:17 | External Medical Summary ---
Author Name Unknown Address Unknown Organization K01:LABORATORY [facility] [place] [address] [address] Laboratory Report Ordering Provider Test Date Status ALICIA OLIVER 09/18/2023 11:41:47 Final Observation Date Value Abnormality Reference (Units ) Status Hep B surface Ag 09/18/2023 11:41:47 Negative Neg ative Final Performing Location LAB[facility]ORY [facility] - [address] [place] [address]
--- OUTSIDE RECORDS SUMMARY | 2023-10-04 09:17 | External Medical Summary ---
Author Name Unknown Address Unknown Organization K01:LABORATORY [facility] [place] - [address] [place] [address] Laboratory Report Ordering Provider Test Date Status ALICIA OLIVER 09/18/2023 11:41:47 Final Observation Date Value Abnormality Reference (Units ) Status Reagin Ab [Presence] in Serum by RPR 09/18/2023 11:41:47 Nonreactive Nonreactive Final Performing Location LABORATORY [facility] [place] - [address] [place] [address]
--- OUTSIDE RECORDS SUMMARY | 2023-10-04 09:17 | External Medical Summary ---
Author Name Unknown Address Unknown Organization K01:[place] [facility] [place] [address] [place] [address] Laboratory Report Ordering Provider Test Date Status ALICIA OLIVER 09/18/2023 11:41:47 Final Observation Date Value Abnormality Reference (Units ) Status PSA 09/18/2023 11:41:47 0.16 <3.10 (ng/ mL) Final Performing Location [facility] [place] [address] [place] [address]
--- OUTSIDE RECORDS SUMMARY | 2023-10-04 09:17 | External Medical Summary ---
Author Name Unknown Address Unknown Organization K01:[facility]ORY [facility] [place] [address] [place] [address] Laboratory Report Ordering Provider Test Date Status ALICIA OLIVER 09/18/2023 11:41:47 Final Observation Date Value Abnormality Reference (Units ) Status GGT 09/18/2023 11:41:47 42 <=60 (U/L) Final Performing Location LAB[facility]ORY [facility] [place] [address] [place] [address]
--- OUTSIDE RECORDS SUMMARY | 2023-10-04 09:18 | External Medical Summary ---
Author Name Unknown Address Unknown Organization K01:[place] [facility] [place] [address] [place] [address] Laboratory Report Ordering Provider Test Date Status ALICIA OLIVER 09/18/2023 11:41:47 Final Anticoagulation may affect t esting. Refer to [employer] Test Catalog for a list of effects. Observation Date Value Abnormality Reference (Units ) Status aPTT panel - Platelet poor plasma 09/18/2023 11:41:47 37 21-38 (seconds) Final Performing Location [place] [facility] [place] [address] [place] [address]
--- OUTSIDE RECORDS SUMMARY | 2023-10-04 09:18 | External Medical Summary ---
Author Name Unknown Address Unknown Organization K01:LABORATORY [facility] - [address] [place] [address] Laboratory Report Ordering Provider Test Date Status ALICIA OLIVER 09/18/2023 11:41:47 Final Observation Date Value Abnormality Reference (Units ) Status Varicella Zoster IgG interpretation 09/18/2023 11:41:47 Positive Abnormal Negative Final A positive result is consist ent with having had varicella zoster virus or vaccination. Performing Location LAB[facility] - [address] [place] [address]
--- OUTSIDE RECORDS SUMMARY | 2023-10-04 09:18 | External Medical Summary ---
Author Name Unknown Address Unknown Organization K01:[place] [facility] [place] [address] [place] [address] Laboratory Report Ordering Provider Test Date Status ALICIA OLIVER 09/18/2023 11:41:47 Final Observation Date Value Abnormality Reference (Units ) Status CMV IgG 09/18/2023 11:41:47 Negative Negative Final Performing Location [place] [facility] [place] [address] [place] [address]
--- OUTSIDE RECORDS SUMMARY | 2023-10-04 09:18 | External Medical Summary | Summary of Care ---
Author Name Unknown Organization [facility] Address [address] [facility] [place] [address] Phone [phone] Care Team Providers Care Field Administrator Name Role Phone Stanford Mays MD Primary Care Provider + [phone] Encounter Details Date Type Department Care Team (Late st Contact Info) Description 09/11/2023 Telephone OR [facility], Operating Room [facility] [address] [place] [phone] Renuka Salas MD [address] [place] [address] Allergies Active Allergy Reactions Criticality Noted Date Comments Aspirin 01/28/2022 Other reaction(s): bloody nose Salicylates 08/08/2001 nose bleeds documented as of this encounter (statuses as of 09/11/2023) Medications Medication Sig Dispensed Refills Start Date [...] the day. 90 Capsule 3 07/17/2023 Active Tamsulosin HCl 0.4 MG Oral Capsule (Flomax) Take 1 Capsule by mouth in the morning. Daily for 14 days. 0 08/27/2023 09/14/2023 Active Mupirocin 2 % External Ointment (Bactroban) Apply topically to affected area 3 times a day. 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 BMI 39.0-39.9,adult 06/21/2023 Overview: 277 Hepatic encephalopathy 03/28/2022 Overview: admitted [facility], ammonia 110 Aortic stenosis, moderate 01/21/2022 [...] as of this encounter (statuses as of 09/11/2023) Resolved Problems Problem Noted Date Diagnosed Date [...] as of this encounter (statuses as of 09/11/2023) Immunizations Name Administration Dates Next Due COVID-19 [...] encounter Miscellaneous Notes * Telephone Encounter - Mani Blair OSA - 09/11/2023 2:41 PM EST Spoke to pt, colonoscopy rescheduled to 01/10 at [place] * Telephone Encounter - Natividad Montenegro RN - 09/11/2023 2:32 PM EST This patient is scheduled for colonoscopy on 09-14-[address] Salas "Per the most recent GI note, the patient's MELD score is 15 which is considered to be decompensated cirrhosis and patient has been encouraged to undergo liver transplant evaluation. Patient should go to the hospital for evaluation. " Patient called and made aware /GI scheduling made aware documented in this encounter Plan of Treatment Upcoming Encounters Date Type Department Care Team (Late st Contact Info) Description 09/18/2023 8:00 AM EST Office Visit Transplant Clinic, [facility] [address] [place], [place] [id number] Dony Hansen MD [address] [place] [address] Avni Hall MD [address] [place] [address] [facility] Renal Transplant [address] [place] [address] Violet Sommer LSW [address] [place] [address] 09/18/2023 12:30 PM EST Laboratory Outpatient Laboratory, [facility] [address] [place] [phone] [facility], Lab [facility] [address] [place] [address] 09/18/2023 1:30 PM EST Appointment Radiology, [place] [address] [place] [phone] 11/06/2023 2:45 PM EST Imaging Radiology [facility] [address] [facility] [address] [facility] [place] [address] 11/09/2023 9:00 AM EST Office Visit Gastroenterology, [facility] [address] [facility] [place] [address] Ren Pineda CRNP [address] [facility] [place] [address] 12/06/2023 8:00 AM EST Nurse Only Ancillary [address] [place] [address] [place], Nurse [address] [place] [address] 12/22/2023 9:00 AM EST Office Visit Family Medicine [address] [place] [phone] Krystian Palomo MD [address] [place] [address] [place] [address] 01/05/2024 8:00 AM EST Nurse Only Ancillary [address] [place] [address] [place], Nurse [address] [place] [address] 01/11/2024 9:30 AM EDT Procedure Only Endoscopy, [facility] [address] [facility] [place] [address] Jayla Armstrong MD [address] [place] [phone] Scheduled Procedures Name Priority Associated Diagnoses Date/Ti [...] 11/24/2020, Additional history exists HbA1c 12/22/2023 06/21/2023, 0204/2023, 04/29/2022, Additional history exists COLONOSCOPY-EVERY 5 YRS AGES 18-100 06/07/2024 06/07/2019, 05/21/2010 Diabetic Foot Exam 06/21/2024 06/21/2023, 0 07/06/2022, 04/29/2021, Additional history exists GFR 08/02/2024 08/02/2023, 05/31, 05/09/2023, Additional history exists Lipid Panel 06/21/2028 06/21/2023, 05/10/2021, 11/24/2020, Additional history exists Hepatitis B Completed 07/05/2023, 08/0 05/2023, 12/16/2021, Additional history exists Influenza Vaccine (FLU shot) Completed 10/2022, 06/30/2022, 07/30/2021, Additional history exists GARDASIL-HPV IMMUNIZATION SERIES Aged Out No longer eligible based on patient's age to complete this topic MENINGOCOCCAL (MENACTRA/MENVEO) Aged Out No longer eligible based on patient's age to complete this topic documented as of this encounter Medical Devices Implanted Type Area Lead Investigator Device Identifier Shelf Expiration Date Model / Serial / Lot Syr Pf 2ml Embospheres 100-300 - [id number] Implanted:Qty: 1 on 08/02/2023 at [facility] [employer] [id number] 02/26/2026 [id number] / / [id number] documented as of this encounter Care Teams Field Administrator Relationship Specialty Start Date End Date Stanford Mays MD [address] [place] [address] [place] [address] PCP - General Family Medicine 04/05/19 documented as of this encounter
--- OUTSIDE RECORDS SUMMARY | 2023-10-04 09:18 | External Medical Summary ---
Author Name Unknown Address Unknown Organization K01:LABORATORY [facility] [place] [facility] - [address] [place] [address] Laboratory Report Ordering Provider Test Date Status MICHELLE OLIVERVIN 09/18/2023 11:41:47 Final Observation Date Value Abnormality Reference (Units ) Status ABO 09/18/2023 11:41:47 A Final RH 09/18/2023 11:41:47 Positive Final RED BLOOD CELL ANTIBODY SCREEN 09/18/2023 11:41:47 Negative Final SPECIMEN EXPIRATION DATE 09/18/2023 11:41:47 09/21/2023 23:59 Final Performing Location LABORATORY [facility] - [address] [place] [address]
--- OUTSIDE RECORDS SUMMARY | 2023-10-04 09:18 | External Medical Summary ---
Author Name Unknown Address Unknown Organization K01:[place]ORY [facility] [place] [address] [place] [address] Laboratory Report Ordering Provider Test Date Status ALICIA OLIVER 09/18/2023 11:41:47 Final Observation Date Value Abnormality Reference (Units ) Status Hepatitis B virus core Ab [Presence] in Serum 09/18/2023 11:41:47 Negative Negative Final Performing Location LABORATORY C - [address] [place] [address] [address]
--- OUTSIDE RECORDS SUMMARY | 2023-10-04 09:18 | External Medical Summary ---
Author Name Unknown Address Unknown Organization K01:LABORATORY [facility] [place] [address] [place] [address] Laboratory Report Ordering Provider Test Date Status BENITOALICIA 09/18/2023 11:41:47 Final Observation Date Value Abnormality Reference (Units ) Status TSH 09/18/2023 11:41:47 1.54 0.27-4.20 (uIU/mL) Final Performing Location LABORATORY [facility] [place] - [address] [place] [address]
--- OUTSIDE RECORDS SUMMARY | 2023-10-04 09:18 | External Medical Summary ---
Author Name Unknown Address Unknown Organization K01:[facility] [place] [address] [address] Laboratory Report Ordering Provider Test Date Status ALICIA OLIVER 09/18/2023 11:41:47 Final Observation Date Value Abnormality Reference (Units ) Status HbA1C 09/18/2023 11:41:47 5.9 Above high normal 4. 0-5.6 (%) Final The use of HbA1c to monitor glycemic status is based on normal hemoglobin and HbA composition. This test should not be used in patients with abnormal hemoglobin that affects the half life of the red blood cell or the in vivo glycation rates. Glucose, estimated average 09/18/2023 11:41:47 123 <126 (mg/dL) Final Performing Location [facility] [place] [address] [address]
--- OUTSIDE RECORDS SUMMARY | 2023-10-04 09:18 | External Medical Summary ---
Author Name Unknown Address Unknown Organization : Laboratory Report Ordering Provider Test Date Status ALICIA OLIVER 09/18/2023 11:41:47 Final Observation Date Value Abnormality Reference (Units ) Status PETH 16:0/18:1 (POPETH) 09/18/2023 11:41:47 NEGATIVE <20 (ng/mL) Final PETH 16:0/18:2 (PLPETH) 09/18/2023 11:41:47 NEGATIVE <20 (ng/mL) Final PETH COMMENTS 09/18/2023 11:41:47 SEE BELOW Final See LDT Notes
Notes and Comments
This drug testing is for medical treatment only.
Analysis was performed as non-forensic testing and
these results should be used only by healthcare
providers to render diagnosis or treatment, or to
monitor progress of medical conditions.
LDT Notes:
These tests were developed and their analytical
performance characteristics have been determined
by [facility]. They have not been cleared
or approved by the FDA. These assays have been
validated pursuant to the CLIA regulations and are
used for clinical purposes.
Healthcare Providers needing Interpretation
assistance, please contact us at [phone]
( )M-F, 8am to 10pm EST

Test Performed at:
[facility]
[address] [facility]
[place] [address]
Huber Gayle M.D., Ph.D.,Director of Laboratories Performing Location
--- OUTSIDE RECORDS SUMMARY | 2023-10-04 09:18 | External Medical Summary | Summary of Care ---
Author Name Unknown Organization [facility] Address [address] [facility] [address] Phone [phone] Care Team Providers Care Mold Making Supervisor Name Role Phone Stanford aMys MD Primary Care Provider [phone] Reason for Visit * Reason Onset Date Comments Advice 09/11/2023 Encounter Details Date Type Department Care Team (Late st Contact Info) Description 09/11/2023 Telephone Gastroenterology, [facility] [address] [place] [address] Ren Pineda CRNP [address] [place] [address] Advice Allergies Active Allergy Reactions Criticality Noted Date [...] Hepatic encephalopathy 03/28/2022 Overview: admitted [facility], ammonia 110 Aortic stenosis, moderate 01/21/2022 [...] Miscellaneous Notes * Telephone Encounter - Mani Blair, XIOMARA - 09/11/2023 4:23 PM EST PAT cx'd him from the [facility] schedule today and he was rescheduled to [place] He was offered a date in September but wasn't available * Telephone Encounter - Migdalia Ramos OSA - 09/11/2023 2:49 PM EST Patient is calling to let you know he is not able to get into [facility] until December for his colonoscopy. Since it was to be scheduled at a hospital setting. If you need to speak to him about it or if he needs to be in sooner please let him know thank you documented in this encounter Plan of Treatment Upcoming Encounters Date Type Department Care Team (Late st Contact Info) Description 09/18/2023 8:00 AM EST Office Visit Transplant Clinic, [address] [address] Dony Hansen MD [facility] [place] Avni Hall MD [facility] [place] Nurse Kj Renal Transplant [facility] [place] Violet Sommer LSW [facility] [place] 09/18/2023 12:30 PM EST Laboratory Outpatient Laboratory, [address] [address] [place], Lab B1a [facility] [place] [address] 09/18/2023 1:30 PM EST Appointment Radiology, [address] [address] 11/06/2023 2:45 PM EST Imaging Radiology [address] [facility] [place] [address] 11/09/2023 9:00 AM EST Office Visit Gastroenterology, [facility] [address] [facility] [place] [address] Ren Pineda CRNP 132 [facility] [place] [address] 12/06/2023 8:00 AM EST Nurse Only Ancillary [address] [place] [address] [place], Nurse [address] [place] [address] 12/22/2023 9:00 AM EST Office Visit Family Medicine [address] [place] [phone] Krystian Palomo MD [address] [place] [address] [place] [address] 01/05/2024 8:00 AM EST Nurse Only Ancillary [address] [place] [address] [place], Nurse [address] [place] [address] 01/11/2024 9:30 AM EDT Procedure Only Endoscopy, [facility] [address] [facility] [place] [address] Jayla Armstrong MD [address] [place] [phone] Scheduled Procedures Name Priority Associated Diagnoses Date/Ti [...] Additional history exists Lipid Panel 06/21/2028 06/21/2023, 0510/2021, 11/24/2020, Additional history exists Hepatitis B Completed [...] this encounter Medical Devices Implanted Type Area Engineering Designer Device Identifier Shelf Expiration Date Model / Serial / Lot Syr Pf 2ml Embospheres 100-300 - [id number] Implanted:Qty: 1 on 08/02/2023 at [facility] [employer] [id number] 02/26/2026 [facility] / / [id number] documented as of this encounter Care Teams Mold Making Supervisor Relationship Specialty Start Date End Date Stanford Mays MD [address] [place] [address] [place] [address] PCP - General Family Medicine 04/05/19 documented as of this encounter
--- OUTSIDE RECORDS SUMMARY | 2023-10-04 09:18 | External Medical Summary | Summary of Care ---
Author Name Unknown Organization [facility] Address [address] [facility] [place] [address] Phone [phone] Care Team Providers Care Senior Oracle Adf Developer Name Role Phone Stanford Mays MD Primary Care Provider + [phone] Encounter Details Date Type Department Care Team (Late st Contact Info) Description 09/11/2023 Telephone OR [facility], Operating Room [facility] [address] [place] [address] Renuka Salas MD [address] [place] [address] Allergies Active Allergy Reactions Criticality Noted Date [...] encounter Miscellaneous Notes * Telephone Encounter - Lory Pardo RN - 09/11/2023 4:18 PM EST Ren, see reason pt was sched at [facility]. Thank you. * Telephone Encounter - Mani Blair OSA - 09/11/2023 2:41 PM EST Spoke to pt, colonoscopy [place]cheduled [place]10 at [place] * Telephone Encounter - Natividad Montenegro RN [...] 8:00 AM EST Office Visit Transplant Clinic, [address] [address] Dony Hansen MD [address] [place], [place] Avni Hall MD [address] [place], [place] Nurse Kj Renal Transplant [facility] [place], [place] Violet Sommer LSW [address] [place], [place] 09/18/2023 12:30 PM EST Laboratory Outpatient Laboratory, [address] [address] [place], Lab B1a [address] [facility] [place] [address] 09/18/2023 1:30 PM EST Appointment Radiology, [place] [facility] [address] 11/06/2023 2:45 PM EST Imaging Radiology [address] 132 [facility] [place] [address] 11/09/2023 9:00 AM EST Office Visit Gastroenterology, [facility] 132 [facility] [place] [address] Ren Pineda CRNP 132 [facility] [place] [address] 12/06/2023 8:00 AM EST Nurse Only Ancillary [address] [place] [address] [place] Nurse [address] [place] [address] 12/22/2023 9:00 AM EST Office Visit Family Medicine [address] [place] [phone] Krystian Palomo MD [address] [place] [address] [place] [address] 01/05/2024 8:00 AM EST Nurse Only Ancillary [address] [place] [address] [place] Nurse [address] [place] [address] 01/11/2024 9:30 AM EDT Procedure Only Endoscopy, [facility] 132 [facility] [place] [address] Jayla Armstrong MD [address] [place] [address] [place] [address] Scheduled Procedures Name Priority Associated Diagnoses Date/Ti [...] 04/29/2021, Additional history exists B-12 12/06/2023 12/06/2022, 0302/2022, 11/24/2020, Additional history exists HbA1c 12/22/2023 06/21/2023, 0204/2023, 04/29/2022, Additional history exists COLONOSCOPY-EVERY 5 YRS AGES 18-100 06/07/2024 06/07/2019, 05/21/2010 Diabetic Foot Exam 06/21/2024 06/21/2023, 0 07/06/2022, 04/29/2021, Additional history exists GFR 08/02/2024 08/02/2023, 0812/2022, 05/09/2023, Additional history exists Lipid Panel 06/21/2028 [...] this encounter Medical Devices Implanted Type Area Parts Sales Associate Device Identifier Shelf Expiration Date Model / Serial / Lot Syr Pf 2ml Embospheres 100-300 - [id number] Implanted:Qty: 1 on 08/02/2023 at [facility] [employer] [id number] 02/26/2026 [facility] / / [id number] documented as of this encounter Care Teams Senior Oracle Adf Developer Relationship Specialty Start Date End Date Stanford Mays MD [address] [place] [address] [place] [address] PCP - General Family Medicine 04/05/19 documented as of this encounter
--- OUTSIDE RECORDS SUMMARY | 2023-10-04 09:18 | External Medical Summary | Summary of Care ---
Author Name Unknown Organization [facility] Address [address] [facility] [place] [address] Phone [phone] Care Team Providers Care Sole Seamer Name Role Phone Stanford Mays MD Primary Care Provider [phone] Reason for Visit * Reason Onset Date Comments Outpatient Testing 09/11/2023 Encounter Details Date Type Department Care Team (Late st Contact Info) Description 09/11/2023 Telephone OR [facility], Operating Room [facility] [address] [place] [phone] Renuka Salas MD [address] [place] [address] Outpatient Testing Allergies Active Allergy Reactions Criticality Noted Date Comments Aspirin 01/28/2022 Other reaction(s): bloody nose Salicylates 08/08/2001 nose bleeds documented as of this encounter (statuses as of 09/12/2023) Medications Medication Sig Dispensed Refills Start Date [...] as of this encounter (statuses as of 09/12/2023) Active Problems Problem Noted Date Diagnosed Date 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 * Telephone Encounter - Lory Pardo RN - 09/11/2023 4:18 PM EST Ren, see reason pt was sched at [facility]. Thank you. * Telephone Encounter - Mani Blair OSA - 09/11/2023 2:41 PM EST Spoke to pt, colon[place]uled [place]10 at [place] * Telephone Encounter - Natividad Montenegro RN - 09/11/2023 2:32 PM EST This patient is scheduled for colonoscopy on 09-14-[address] aSlas "Per the most recent GI note, the [...] 09/18/2023 8:00 AM EST [facility] [address] [place] [address] Dony Hansen MD [address] [place] [address] Avni Hall MD [address] [place] [address] Nurse Kj Renal Transplant [address] [place] [address] Maribel Sommerry, VISUAL BASIC DEVELOPER [address] [place] [address] 09/18/2023 12:30 PM EST Laboratory Outpatient Laboratory, [place] [address] [place] [phone] [place], [facility] [place] [address] 09/18/2023 1:30 PM EST Appointment Radiology, [address] [phone] 11/06/2023 2:45 PM EST Imaging Radiology [address] [facility] [address] 11/09/2023 9:00 AM EST Office Visit Gastroenterology, [address] [place] [address] Ren Pineda CRNP 132 [place] [address] 12/06/2023 8:00 AM EST Nurse Only Ancillary [address] [place] [address] Nurse [place] [address] [place] [address] 12/22/2023 9:00 AM EST Office Visit Family Medicine [address] [place] [phone] Krystian Palomo MD [address] [place] [address] [place] [address] 01/05/2024 8:00 AM EST Nurse Only Ancillary [address] [place] [address] Nurse [place] [address] [place] [address] 01/11/2024 9:30 AM EDT Procedure Only Endoscopy, [facility] [address] [place] [address] Jayla Armstrong MD [address] [place] [address] Scheduled Procedures Name Priority Associated Diagnoses Date/Ti [...] 11/24/2020, Additional history exists HbA1c 12/22/2023 06/21/2023, 02/0 04/2023, 04/29/2022, Additional history exists COLONOSCOPY-EVERY 5 [...] this encounter Medical Devices Implanted Type Area Featheredge Machine Operator Device Identifier Shelf Expiration Date Model / Serial / Lot Syr Pf 2ml Embospheres 100-300 - [id number] Implanted:Qty: 1 on 08/02/2023 at [facility] [employer] [id number] 02/26/2026 [id number] / / [id number] documented as of this encounter Care Teams Sole Seamer Relationship Specialty Start Date End Date Stanford Mays MD [address] [place] [address] [place] [address] PCP - General Family Medicine 04/05/19 documented as of this encounter
--- OUTSIDE RECORDS SUMMARY | 2023-10-04 09:18 | External Medical Summary | Summary of Care ---
Author Name Unknown Organization [facility] Address [address] [facility] [place] [address] Phone [phone] Care Team Providers Care Oil Heaterman Name Role Phone Stanford Mays MD Primary Care Provider [phone] Reason for Visit * Reason Onset Date Comments Outpatient Testing 09/11/2023 Encounter Details Date Type Department Care Team (Late st Contact Info) Description 09/11/2023 Telephone OR [facility], Operating Room [facility] [address] [place] [phone] Renuka Salas MD [address] [place] [address] Outpatient Testing Allergies Active Allergy Reactions Criticality [...] 277 Hepatic encephalopathy 03/28/2022 Overview: admitted [facility], ammonia 110 Aortic stenosis, moderate 01/21/2022 [...] Encounter - Ren Pineda CRNP - 09/12/2023 11:14 AM EST Please let the pt know that we will contact him if there are any cancellations. * Telephone Encounter - Ren Pineda CRNP - 09/12/2023 11:13 AM EST OK thx. * Telephone Encounter - Lory Pardo RN - 09/11/2023 4:18 PM EST Ren, see reason pt was sched at [facility]. Thank you. * Telephone Encounter - Mani Blair OSA - 09/11/2023 2:41 PM EST Spoke to pt, colon[place]uled [place]/10 at [place] * Telephone Encounter - Natividad Montenegro RN [...] 8:00 AM EST Office Visit Transplant Clinic, [place] [address] [place] [address] Dony Hansen MD [address] [place], [place] [phone] Avni Hall MD [address] [place] [address] Nurse Kj Renal Transplant [address] [place] [address] Violet Sommer LSW [address] [place], [place] 09/18/2023 12:30 PM EST Laboratory Outpatient Laboratory, [place] 100 [place] [phone] [place], Lab B1a [facility] N [place], [place] 09/18/2023 1:30 PM EST Appointment Radiology, [address] [phone] 11/06/2023 2:45 PM EST Imaging Radiology [address] [place] [address] 11/09/2023 9:00 AM EST Office Visit Gastroenterology, [address] [place] [address] Ren Pineda CRNP 132 [place] [address] 12/06/2023 8:00 AM EST Nurse Only Ancillary [address] [place] [address] [place], Nurse [address] [place] [address] 12/22/2023 9:00 AM EST Office Visit Family Medicine [address] [place] [phone] Krystian Palomo MD [address] [place] [address] [place] [address] 01/05/2024 8:00 AM EST Nurse Only Ancillary [address] [place] [address] [place], Nurse [address] [place] [address] 01/11/2024 9:30 AM EDT Procedure Only Endoscopy, [facility] 132 [facility] [place] [address] Jayla Armstrong MD [address] [place] [phone] Scheduled Procedures Name Priority Associated Diagnoses Date/Ti [...] this encounter Medical Devices Implanted Type Area Mortgage Loan Assistant Device Identifier Shelf Expiration Date Model / Serial / Lot Syr Pf 2ml Embospheres 100-300 - [id number] Implanted:Qty: 1 on 08/02/2023 at [facility] [employer] [id number] 02/26/2026 [id number] / / [id number] documented as of this encounter Care Teams Oil Heaterman Relationship Specialty Start Date End Date Stanford Mays MD [address] [place] [address] [place] [address] PCP - General Family Medicine 04/05/19 documented as of this encounter
--- OUTSIDE RECORDS SUMMARY | 2023-10-04 09:18 | External Medical Summary ---
Author Name Unknown Address Unknown Organization K01:LABORATORY [place] [address] [facility] [address] [facility] [address] Laboratory Report Ordering Provider Test Date Status ALICIA OLIVER 09/18/2023 11:41:47 Final Observation Date Value Abnormality Reference (Units ) Status WBC, Total 09/18/2023 11:41:47 6.43 4.00-10.80 (K/uL) Final RBC 09/18/2023 11:41:47 3.65 4.50-5.25 (M/uL) Final Hemoglobin 09/18/2023 11:41:47 13.2 Below low normal 14.0-16.8 (g/dL) Final HCT 09/18/2023 11:41:47 39.5 Below low normal 40.0-48.4 (%) Final MCV 09/18/2023 11:41:47 108.2 82.0-99.5 (fL) Final MCH 09/18/2023 11:41:47 36.2 27.0-34.0 (pg) Final MCHC 09/18/2023 11:41:47 33.4 32.0-36.0 (g/dL) Final RDW 09/18/2023 11:41:47 17.5 11.5-15.5 (%) Final Platelets 09/18/2023 11:41:47 90 Below low normal 140-400 (K/uL) Final MPV 09/18/2023 11:41:47 10.9 6.6-11.1 (fL) Final Nucleated erythrocytes/100 leukocytes [Ratio] in Blood by Automated count 09/18/2023 11:41:47 0 <=0 (/100 WBCs) Final Performing Location [facility] [place] [facility] [place] [address]
--- OUTSIDE RECORDS SUMMARY | 2023-10-04 09:18 | External Medical Summary ---
Author Name Unknown Address Unknown Organization K01:LABORATORY [facility] [place] - [address] [place] [address] Laboratory Report Ordering Provider Test Date Status ALICIA OLIVER 09/18/2023 11:41:47 Final Observation Date Value Abnormality Reference (Units ) Status Gordo Almonte virus capsid IgG Ab avidity [Presence] in Serum by Immunoassay 09/18/2023 11:41:47 Positive Abnormal Negative Final Performing Location LABORATORY [facility] [place] - [address] [place] [address]
--- NOTE | 2023-10-04 10:42 | History & Physical Report ---
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 hgb 13. No needs for transfusion or risk of spontaneous bleeding currently. - AST 60, Total eldon 4.7, INR 1.6, ALT 25, Alk phos 120, albumin 2.4 - CT abdomen reviewed personally showing : 1. Cirrhosis with moderate to large ascites, significantly increased from prior exam. Stigmata of portal hypertension again noted. 2. Stable right hepatic calcification. Left pleural effusion is moderate in size, nonobstructive nephrolithiasis, under distention of the bladder, extensive varices most prominently seen about the spleen - Will check with radiology re r/o PVT on contrast CT -Patient reports that he was stopped on diuretics after his last hospital stay here, also is off omeprazole - Diagnostic and therapeutic paracentesis ordered, obtain cytology, cell count and then will start empiric antibiotics with ceftriaxone 2 g IV q 24h to treat empirically for if SBP - do not assume this right now. - IV albumin 1.5 mg/kg started with 50 g IV albumin, Plan to give today as day 1 and on day 3 - GI consulted for additional recs - History of recent transplant evaluation on 09/18, planning on discussion with liver transplant team which was to happen last week, pt is to have MRI liver, cardiac clearance, and weight loss of 20-30 lbs - MELD score of 20 today on calculation Moderate Aortic Stenosis - Noted on exam, chronic, stable Left pleural Effusion - As noted above, Pt is on room air, no o2 needs at baseline, monitor DM II - Last a1c of 5.9 on 09/18, pt is on oral hypoglycemic medications, will hold these and use ISS for now - Currently NPO - Chronic, stable and has improved a1c from 6.3 recently HLD - Cont statin therapy, chronic, stable Morbid Obesity - Wt of 130 on 09/18 on outpt epic review, obtain daily weights here - Encourage weight loss and exercise regimen to help meet transplant qualifications as above, goal 20-30 lbs Gout - Chronic, stable, Cont allopurinol DVT ppx: scds Lines: 2 PIV FEN/GI: NPO, gentle maintenece fluids CODE: Full, discussed at bedside Dispo: From home, likely to remain in hospital x 1-2 days (10) Sepsis: (11) UTI (urinary tract infection): History of Present Illness Chief Complaint: Abdominal Pain Primary Care Provider: Stanford Mays MD This is 58-year-old male with past med history significant for type 2 diabetes, hyperlipidemia, chronic idiopathic gout, hepatic encephalopathy, hypertension, moderate aortic stenosis, liver cirrhosis, diverticulosis of colon, thro mbocytopenia who presents with abdominal pain x 1 day. Pt states he has had left sided lower abdominal pain for about 3 weeks, but last night he started having acute right lower quadrant pain rated 7/10, it is constant in nature. Pt was awake around midnight and had eaten 2 clementines, and then afterwards had progressively worsening pain from 12am to 3am. Denies positional changes has helped. The left sided pain is previously resolved with lactulose, and he trialed this last night for the right sided pain but it didn't seem to improve anything with two doses overnight. He has not had any bowel movements today, last was yesterday. He is passing gas today. Pt also is nauseous, dry heaved, but no vomiting. Abdomen is distended moreso today, but has acutally improve per pt report since he got up. Currently he is very thirsty. 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 Pt has been seen recently in [place] for Liver Transplant list on 09/18/23. Most recently had MELD score was 20, and he would make the list when score is 27. Pt is scheduled 6 months later for revaluation. He is also going to have an MRI of the liver as outpatient. Pt has been taking medications as prescribed. Notes he is no longer on diuretic medications, and that omeprazole was stopped during the transplant appointment. Pt ran out of flomax at least a week ago, and needs a refill. Allergies Allergy/AdvReac Type Severity Reaction Status Date / Time aspirin Allergy Intermediate NOSE Verified 08/27/23 11:18 BLEEDS--IF TAKES REGULARLY Home Medications Medication Instructions Recorded Confirmed Type allopurinol 300 mg tablet 300 mg PO QAM 06/03/19 10/04/23 History metformin 500 mg tablet 500 mg PO BIDM 06/03/19 10/04/23 History multivitamin 1 tab PO QAM 06/03/19 10/04/23 History pioglitazone 30 mg tablet (Actos) 30 mg PO QAM 06/03/19 10/04/23 History atorvastatin 20 mg tablet 20 mg PO QAM 04/21/21 10/04/23 History glimepiride 1 mg tablet 1 mg PO QAM 01/13/22 10/04/23 History lactulose 20 gram/30 mL oral 45 g (67.5 mL) PO TID Cirrhosis 30 03/30/22 10/04/23 Rx solution days #3,000 mL rifaximin 550 mg tablet 550 mg PO BID #180 tabs 03/30/22 10/04/23 Rx ascorbic acid (vitamin C) 1,000 mg 1 g PO QAM 08/27/23 10/04/23 History tablet (Vitamin C) meloxicam 15 mg tablet 15 mg PO DAILY PRN Pain 08/27/23 10/04/23 History mupirocin 2 % topical ointment 1 applic EXT TID #20 grams 08/29/23 10/04/23 Rx tamsulosin 0.4 mg capsule 0 mg PO DAILY 10/04/23 10/04/23 History Past Med/Surg History Medical History Abnormal CT of the abdomen Acute hyponatremia Acute urinary retention BERT (acute kidney injury) Hepatocellular carcinoma 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 Thrombocytopenia Hyperlipidemia Fracture of rib of right side 2013 Anaplasmosis 2020 Acute hepatic encephalopathy Gout Diabetes mellitus, type 2 Cardiac murmur HX Hyperlipidemia Hypertension Right rib fracture Surgical History History of colonoscopy Family History Mother History of colonoscopy Brother Family history of diabetes mellitus Brother Family history of diabetes mellitus Grandmother (Paternal) Family history of diabetes mellitus Social History Smoking Status: Never smoker Tobacco Type: Cigarettes and Smokeless Tobacco (Dip or Chew) Second Hand Exposure: No; Hx Alcohol Use: No Hx Substance Use: No Communication Ability: Effective Community Affairs Manager Required: Yes and No Beliefs That Will Affect Care: None marital status: Single Current Living Situation: Family Current Living Situation Comment: mom and daughter live with him Feels Safe at Home: Yes Assistive Devices: None Review of Systems Review of Systems: Constitutional: No fever, sweats or chills Eyes: No diplopia, no worsening or blurred vision ENT: normal hearing, no trouble swallowing Respiratory: No cough, sputum, dyspnea at rest or on exertion Cardiovascular: No chest pain, tightness or palpitations Abdomen: + pain, abdominal distension, and nausea as per HPI, no vomiting, diarrhea or constipation Musculoskeletal: No joint pain, calf pain, swelling Neurologic: No weakness, numbness/tingling, or balance problems Psychiatric: No anxiety or depression Skin: No rash or itch Physical Exam Physical Exam: General: awake, alert, no apparent distress, + obesity, white male Head: Normocephalic, atraumatic ENT: PERRL, EOMI, no pharyngeal exudate, mucous membranes appear very dry Chest: Nearly absent breath sounds on LLL, otherwise clear throughout, on room air, no adventitious breath sounds Cardiac: Regular rhythm,+ sinus tach 110s, + loud holosystolic murmur grade III/, no JVD, normal peripheral pulses, good capillary refill Abdominal: NABS x 4 quadrants, soft, +distended, liver border is enlarged, + minimally tender to palpation in LLQ s/p morphine IV, no rebound or guarding Extremities: Normal inspection, no peripheral edema or erythema, calfs nontender to palpation Psych: Normal mood and affect Neuro: AAO x 3, strength intact bilaterally and rated 5/5, no motor deficits, speech is clear, no peripheral sensory deficits Results & Data Results & Data Vital Signs (Past 12 Hours) Vital Signs Temp Pulse Pulse Resp BP BP Pulse Ox 10/04/23 09:00 133/85 10/04/23 09:00 113 H 17 97 10/04/23 08:50 117 H 21 93 10/04/23 08:40 113 H 20 97 10/04/23 08:30 118 H 31 H 99 10/04/23 08:20 110 H 25 H 98 10/04/23 08:10 112 H 31 H 97 10/04/23 08:06 109 H 24 98 10/04/23 07:40 111 H 29 H 98 10/04/23 07:30 146/91 H 10/04/23 07:30 105 H 21 99 10/04/23 07:20 105 H 15 91 10/04/23 07:10 103 H 24 99 10/04/23 07:00 150/88 H 10/04/23 07:00 104 H 23 10/04/23 06:50 106 H 24 10/04/23 06:40 101 H 22 98 10/04/23 06:30 146/95 H 10/04/23 06:30 99 H 24 99 10/04/23 06:20 104 H 33 H 99 10/04/23 06:10 103 H 24 100 10/04/23 06:00 156/93 H 10/04/23 06:00 102 H 22 99 10/04/23 05:50 103 H 37 H 100 10/04/23 05:43 153/92 H 10/04/23 05:43 103 H 18 100 10/04/23 05:43 105 H 16 153/92 H 99 10/04/23 05:41 103 H 20 98 10/04/23 05:41 104 H 10/04/23 05:04 36.8 C 111 H 18 138/85 100 O2 Del Method 10/04/23 09:00 10/04/23 09:00 10/04/23 08:50 10/04/23 08:40 10/04/23 08:30 10/04/23 08:20 10/04/23 08:10 10/04/23 08:06 10/04/23 07:40 10/04/23 07:30 10/04/23 07:30 10/04/23 07:20 10/04/23 07:10 10/04/23 07:00 10/04/23 07:00 10/04/23 06:50 10/04/23 06:40 10/04/23 06:30 10/04/23 06:30 10/04/23 06:20 10/04/23 06:10 10/04/23 06:00 10/04/23 06:00 10/04/23 05:50 10/04/23 05:43 10/04/23 05:43 10/04/23 05:43 Room Air 10/04/23 05:41 10/04/23 05:41 10/04/23 05:04 Room Air Laboratory Results 10/04/23 10/04/23 10/04/23 09:09 06:49 06:34 WBC 5.43 RBC 3.67 L Hgb 13.0 L Hct 38.3 L MCV 104.4 H MCH 35.4 H MCHC 33.9 RDW Std Deviation 70.3 H RDW Coeff of Pol[place] 18.1 H Plt Count 94 L MPV 11.0 Immature Gran % (Auto) 0.4 Neut % (Auto) 71.0 Lymph % (Auto) 8.5 [place] % (Auto) 16.8 Eos % (Auto) 2.0 Baso % (Auto) 1.3 Neut # (Auto) 3.86 Lymph # (Auto) 0.46 L [place] # (Auto) 0.91 H Eos # (Auto) 0.11 Baso # (Auto) 0.07 Immature Gran # (Auto) 0.02 PT 17.0 H INR 1.6 H Sodium 136 Potassium 3.7 Chloride 104 Carbon Dioxide 22 Anion Gap 10 BUN 11 Creatinine 1.03 Est Cr Clr Drug Dosing Not Reportable Est GFR ( Amer) 91.7 Est GFR (Non-Af Amer) 79.1 BUN/Creatinine Ratio 10.7 Glucose 141 H Lactate 3.2 H* 4.5 H* Calcium 8.6 Total Bilirubin 4.7 H AST 60 H ALT 25 Alkaline Phosphatase 120 H Ammonia 40.0 Total Protein 6.9 Albumin 2.4 L Globulin 4.5 H Albumin/Globulin Ratio 0.5 L Lipase 40 Diagnostic Findings Chest X-Ray 10/04/23 05:12 SINGLE VIEW CHEST CLINICAL HISTORY: Generalized abdominal pain. FINDINGS: An AP, portable, upright chest radiograph is compared to study dated 09/08/2023. The examination is degraded by portable technique and apical lordotic positioning. The heart is enlarged. The pulmonary vasculature is not congested. Chronic interstitial thickening is similar to previous. There is a small left pleural effusion with left basilar consolidation. No pneumothorax is seen. The skeletal structures are osteopenic. The bony thorax is grossly intact. IMPRESSION: 1. Cardiomegaly without radiographic evidence of congestive failure. 2. Small left pleural effusion with left basilar consolidation. ACT 112: Negative or not required by law. Electronically signed by: Ruy Ribeiro M.D. 10/04/2023 7:49 AM Abdomen/Pelvis CT 10/04/23 06:50 CT abd pelvis IV con only CLINICAL HISTORY: right abd pain TECHNIQUE: Helical axial images of the abdomen and pelvis were obtained and displayed. Automated dose lowering techniques and/or adjustment according to patient size were utilized for this exam. This exam was performed with intrave nous contrast. CT DOSE: 1563.68 mGy.cm COMPARISON: Comparison is made to CT abdomen pelvis 08/27/2023 FINDINGS: Lower chest: Left pleural effusion is moderate in size, enlarged from prior e xam. Liver: Nodular contour of the liver is seen compatible with cirrhosis. Right calcification is unchanged. Gallbladder and biliary tree: No calcified gallstones. Normal caliber wall. No intra- or extrahepatic biliary ductal dilation. Pancreas: Unremarkable, no focal lesions. Spleen: Unremarkable. Adrenals: Unremarkable. Kidneys and ureters: Nonobstructive nephrolithiasis is seen. Bladder: Limited evaluation due to underdistention. Reproductive organs: Unremarkable. Bowel: The appendix is normal. Lymph nodes Retroperitoneal: Unremarkable. Pelvic: Unremarkable. Mesenteric: Unremarkable. Peritoneum: Moderate ascites is seen. Vessels: Extensive varices are seen most prominently about the spleen. Abdominal wall: Body wall edema is seen. A fluid-containing umbilical hernia is seen. Fat-containing left inguinal hernia is seen. Bones: Degenerative changes in the visualized spine. IMPRESSION: 1. Cirrhosis with moderate to large ascites, significantly increased from prior exam. Stigmata of portal hypertension again noted. 2. Stable right hepatic calcification. 3. Additional findings as above. No other acute abnormalities are seen. ACT 112: Negative or not required by law. Electronically signed by: Spike Barnard M.D. 10/04/2023 8:23 AM Code Status & VTE Plan Code Status Full Code- discussed with pt at bedside Supervising Physician Co-Signing Physician Notes I have seen and examined the patient and have discussed the case with the provider above. I agree with the assessment and plan as stated with the following exceptions. 58 yo diabetic man with cirrhosis presents with worsening abdominal pain and increasing ascites over the past 5 days, worse overnight. He reports there was pain in his RLQ that has been there chronically, and he has felt bloating and gas when he eats anything this week. He reports taking gasX medications and avoiding food/drink to a certain extent in order to prevent that abdominal pain from occurring. What made him feel more concerned last night was that his RLQ then moved into the LLQ after eating a snack of oranges. He denies any change in BMs and is compliant with lactulose generally. He denies fevers, chills, vomiting, blood per rectum, chest pain, chest pain with deep breaths, shortness of breath. He was given morphine in the ER and reports some improvement of the lower abdominal pain, which went almost completely away with the first bottle of albumin. He then underwent a paracentesis with 5L removed that was not exhibiting signs of intra-abdominal infection. He reports the pain totally resolved after this procedure and he is now feeling well. His HR remains elevated at 117 bpm, and notably his Coreg and Lisinopril were stopped on 08/30 because of hypotension. Given his cirrhosis, known hypertensive gastropathy per recent EGD in Jun 2023, and evidence of increased portal hypertension seen on the CT abd today, would consider starting propranolol this admission. However, with positive UA, there is a concern for poss sepsis 2/2 underlying UTI, which also may be contributing to his discomfort. Lactate is elevated and improving after albumin. Will plan to give a small bolus of NSS and hold additional diuretics until HR has improved and he appears more resuscitated despite overall looking clinically well at this time. Will cont monitoring on telemetry for the time being. Blood cultures are pending. sms
[2023-10-04] MEDS ORDERED: ONDANSETRON INJ 2 MG/ML 2 ML VIAL IV PRN (10:47)
[2023-10-04] MEDS: ALBUMIN 25% 25 GM/100 ML VIAL IV SCH ×2 (10:53→14:07)
[2023-10-04] MEDS ORDERED: INSULIN ASPART PER UNIT CHARGE SC SCH ×2 (12:12→21:00)
[2023-10-04] MEDS ORDERED: GLUCOSE 10 TAB/TUBE PO PRN (12:12)
[2023-10-04] MEDS ORDERED: GLUCAGON FOR INJ 1 MG VIAL SQ PRN (12:12)
[2023-10-04] MEDS ORDERED: GLUCOSE 40% GEL 15 GM TUBE PO PRN (12:12)
[2023-10-04] MEDS ORDERED: CARBOHYDRATES FOR HYPOGLYCEMIA PO PRN (12:12)
[2023-10-04] MEDS ORDERED: DEXTROSE 50% 50 ML SYRINGE IV PRN (12:12)
[2023-10-04 12:16] LABS: Appearance Urine Turbid (Clear); Blood Urine 3+ (Negative); Color Urine Orange; Epithelial Cell Urine Auto >30 /lpf (0-5); Glucose Urine UA Negative (Negative); Ketones Urine Negative (Negative); Leukocyte Esterase Urine 1+ (Negative); Nitrite Urine Positive (Negative); Protein Urine 2+ (Negative); RBC Urine Automated >30 /hpf (0-4); Specific Gravity Urine 1.029 (1.000-1.030); Urobilinogen Urine Negative (Negative)
--- NOTE | 2023-10-04 12:20 | Gastrointestinal Consultation ---
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 - Diagnostic and therapeutic paracenteses today - please send fluid for cytology, albumin, protein, cell count and culture - Agree with IV albumin - Await UCX, BCX - Empiric ABX - R/o PVT - check hepatic doppler - Restart diuretics - Lasix 20 mg daily, spironolactone 50 mg daily - Should have urology f/u for voiding issues; he states this is scheduled soon - As with his previous admission, he needs colonoscopy for cecal thickening - this is being arranged thru GI office, slated for December - Daily MELD labs while inpt - High protein (60-80 gms daily), low fat, low carbohydrate diet and low salt diet (at most 2 grams a day). Avoid salt containing manufactured food such as canned/boxed foods. - Need to avoid liver toxins including herbal supplements. The patient should avoid excess tylenol and may take Acetaminophen 2 grams a week. Avoid NSAIDs. Thank you for allowing us to participate in the care of this patient. Please call with any acute changes, questions or concerns. Please see addendum below with additional recommendation from my supervising physician. Supervising Physician Co-Signing Physician Notes Patient admitted for abdominal pain, off diuretics for a month, imaging c/w large volume ascites and pleural effusion s/p tap today. 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 Agree with further plan of care as documented above. Currently with a uti - now on ceftriaxone. History of Present Illness Reason for Consultation: LAKIA, hepatocellulac carcinoma Requesting Physician: Jazmin Echevarria PA-C Attending Physician: Stacie Lutz, History of Present Illness This is a 58 y/o male iwth h/o GONZALES cirrhosis c/b HCC s/p TACE by IR 07/2023, HE, ascites, PHG, moderate , T2DM, obesity, HTN, HLD and others. Currently undergoing eval for consideration of liver transplant thru [facility] (needs cardiac/pulm evals and weight loss). Was recently admitted to [facility] in Jul 2023 for urinary retention/voiding issues and CTAP showed cecal wall thickening. Last colonoscopy was normal in 2019. He does report his mother had colon cancer diagnosed in her 60s. He is to have OP colonoscopy but this has not been done yet. On last DC, diuretics were not restarted d/t urology issues. He was supposed to be taking Flomax and f/u with urology as OP after DC but doesn't look like they saw him. He has run out of Flomax a week ago. He was continued on lactulose, Rifaximin. Last MELD was 21 on 09/27/23. Presented to the ED today with LLQ abd pain x several weeks, then worsening today with RLQ pain along with more abdominal distention. Last BM was yesterday. Also having dry heaving. No vomiting. CT w/ moderate left pleural effusion, enlarged from prior, moderate-large ascites, stable right hepatic calcification, cirrhosis, and portal HTN stigmata. Diagnostic/therapeutic paracentesis ordered as well as IV albumin. 5 L removed from tap today, fluid studies pending. UCx, BCx pending. He states since his tap his abd pain is much better. Denies melena, hematochezia, hematemesis, poor appetite, fever, chills, jaundice, leg edema, CP, SOB; has intermittent cough. Labs w/ Na, 136 K, 3.7 Cr 1.03 INR 1.6 Tbili 4.7 AST 60 ALT 25 ALP 120 Lactate 4.5->3.2 Procal WBC 5.43 HGB 13 PLT 94. MELD of 20 (baseline). UA w/ turbid urine, 3 + blood, + nitrites, + leuks. GI meds: Ascites/peripheral Edema: managed w furosemide 20mg/spironolactone 50 daily. Pt taking regularly Hep Enceph: most recent episode April 2022. Rifaximin 550mg BID and Lactulose 30 gms 2-3x/day to affect 3 BMs/day. EGD 06/2023: - Normal esophagus. - Portal hypertensive gastropathy. - Normal examined duodenum. - No specimens collected. Colonoscopy in 2019 normal EGD 2020: no varices/PGH or GAVE. Allergies Allergy/AdvReac Type Severity Reaction Status Date / Time aspirin Allergy Intermediate NOSE Verified 08/27/23 11:18 BLEEDS--IF TAKES REGULARLY Home Medications Medication Instructions Recorded Confirmed Type allopurinol 300 mg tablet 300 mg PO QAM 06/03/19 10/04/23 History metformin 500 mg tablet 500 mg PO BIDM 06/03/19 10/04/23 History multivitamin 1 tab PO QAM 06/03/19 10/04/23 History pioglitazone 30 mg tablet (Actos) 30 mg PO QAM 06/03/19 10/04/23 History atorvastatin 20 mg tablet 20 mg PO QAM 04/21/21 10/04/23 History glimepiride 1 mg tablet 1 mg PO QAM 01/13/22 10/04/23 History lactulose 20 gram/30 mL oral 45 g (67.5 mL) PO TID Cirrhosis 30 03/30/22 10/04/23 Rx solution days #3,000 mL rifaximin 550 mg tablet 550 mg PO BID #180 tabs 03/30/22 10/04/23 Rx ascorbic acid (vitamin C) 1,000 mg 1 g PO QAM 08/27/23 10/04/23 History tablet (Vitamin C) meloxicam 15 mg tablet 15 mg PO DAILY PRN Pain 08/27/23 10/04/23 History mupirocin 2 % topical ointment 1 applic EXT TID #20 grams 08/29/23 10/04/23 Rx tamsulosin 0.4 mg capsule 0 mg PO DAILY 10/04/23 10/04/23 History Patient History Medical History Hepatocellular carcinoma 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 Thrombocytopenia Hyperlipidemia Fracture of rib of right side 2013 Anaplasmosis 2019 Acute hepatic encephalopathy Gout Diabetes mellitus, type 2 Cardiac murmur HX Hyperlipidemia Hypertension Right rib fracture Surgical History History of colonoscopy Family History Mother History of colonoscopy Brother Family history of diabetes mellitus Brother Family history of diabetes mellitus Grandmother (Paternal) Family history of diabetes mellitus Social History Smoking Status: Never smoker Tobacco Type: Cigarettes and Smokeless Tobacco (Dip or Chew) Second Hand Exposure: No; Hx Alcohol Use: No Hx Substance Use: No Communication Ability: Effective Online Health And Fitness Coach Required: Yes and No Beliefs That Will Affect Care: None marital status: Single Current Living Situation: Family Current Living Situation Comment: mom and daughter live with him Feels Safe at Home: Yes Assistive Devices: None Review of Systems Review of Systems: All systems reviewed & are unremarkable except as noted in HPI & below Physical Exam Constitutional: well developed, well nourished and comfortable; no acute dis tress Eyes: Sclera anicteric, no conjunctival injection ENMT: moist mucous membranes, no pallor Neck: trachea midline supple Respiratory: normal respiratory effort Auscultation: + diminished lung sounds Cardiovascular: RRR, no murmur, no edema Gastrointestinal (Abdomen): + moderate ascites, soft, nontender, non distended BS x 4 quads Skin: no rashes, warm and dry Neurologic: alert and oriented x 3, no obvious focal neuro deficit, no asterixis Psychiatric: normal mood and affect Results & Data Vital Signs (Past 12 Hours) Vital Signs Temp Pulse Pulse Resp BP BP Pulse Ox 10/04/23 11:56 119 H 15 155/78 H 94 10/04/23 11:20 120 H 18 95 10/04/23 11:10 120 H 16 97 10/04/23 11:00 122 H 19 95 10/04/23 11:00 132/80 10/04/23 10:50 121 H 18 72 L 10/04/23 10:40 119 H 17 97 10/04/23 10:30 119 H 6 L 96 10/04/23 10:30 127/86 10/04/23 10:20 119 H 21 92 10/04/23 10:10 120 H 26 H 98 10/04/23 10:00 145/85 H 10/04/23 10:00 119 H 19 91 10/04/23 09:50 121 H 19 97 10/04/23 09:40 119 H 18 98 10/04/23 09:40 150/75 H 10/04/23 09:39 121 H 26 H 98 10/04/23 09:20 115 H 18 97 10/04/23 09:10 115 H 25 H 96 10/04/23 09:00 133/85 10/04/23 09:00 113 H 17 97 10/04/23 08:50 117 H 21 93 10/04/23 08:40 113 H 20 97 10/04/23 08:30 118 H 31 H 99 10/04/23 08:20 110 H 25 H 98 10/04/23 08:10 112 H 31 H 97 10/04/23 08:06 109 H 24 98 10/04/23 07:40 111 H 29 H 98 10/04/23 07:30 146/91 H 10/04/23 07:30 105 H 21 99 10/04/23 07:20 105 H 15 91 10/04/23 07:10 103 H 24 99 10/04/23 07:00 150/88 H 10/04/23 07:00 104 H 23 10/04/23 06:50 106 H 24 10/04/23 06:40 101 H 22 98 10/04/23 06:30 146/95 H 10/04/23 06:30 99 H 24 99 10/04/23 06:20 104 H 33 H 99 10/04/23 06:10 103 H 24 100 10/04/23 06:00 156/93 H 10/04/23 06:00 102 H 22 99 10/04/23 05:50 103 H 37 H 100 10/04/23 05:43 153/92 H 10/04/23 05:43 103 H 18 100 10/04/23 05:43 105 H 16 153/92 H 99 10/04/23 05:41 103 H 20 98 10/04/23 05:41 104 H 10/04/23 05:04 36.8 C 111 H 18 138/85 100 O2 Del Method 10/04/23 11:56 Room Air 10/04/23 11:20 10/04/23 11:10 10/04/23 11:00 10/04/23 11:00 10/04/23 10:50 10/04/23 10:40 10/04/23 10:30 10/04/23 10:30 10/04/23 10:20 10/04/23 10:10 10/04/23 10:00 10/04/23 10:00 10/04/23 09:50 10/04/23 09:40 10/04/23 09:40 10/04/23 09:39 10/04/23 09:20 10/04/23 09:10 10/04/23 09:00 10/04/23 09:00 10/04/23 08:50 10/04/23 08:40 10/04/23 08:30 10/04/23 08:20 10/04/23 08:10 10/04/23 08:06 10/04/23 07:40 10/04/23 07:30 10/04/23 07:30 10/04/23 07:20 10/04/23 07:10 10/04/23 07:00 10/04/23 07:00 10/04/23 06:50 10/04/23 06:40 10/04/23 06:30 10/04/23 06:30 10/04/23 06:20 10/04/23 06:10 10/04/23 06:00 10/04/23 06:00 10/04/23 05:50 10/04/23 05:43 10/04/23 05:43 10/04/23 05:43 Room Air 10/04/23 05:41 10/04/23 05:41 10/04/23 05:04 Room Air Laboratory Results 10/04/23 10/04/23 10/04/23 Range/Units Unknown 09:09 06:49 WBC (4.8-10.8) K/ul RBC (4.70-6.10) M/uL Hgb (14.0-18.0) g/dl Hct (42.0-52.0) % MCV (80.0-100.0) fL MCH (25.0-34.0) pg MCHC (32.0-36.0) g/dL RDW Std Deviation (36.4-46.3) fL RDW Coeff of Pol[place] (11.5-14.5) % Plt Count (130-400) K/uL MPV (9.4-12.4) fL Immature Gran % (Auto) % Neut % (Auto) % Lymph % (Auto) % [place] % (Auto) % Eos % (Auto) % Baso % (Auto) % Neut # (Auto) (1.40-6.50) K/uL Lymph # (Auto) (1.20-3.40) K/uL [place] # (Auto) (0.11-0.59) K/uL Eos # (Auto) (0.00-0.50) K/uL Baso # (Auto) (0.00-0.20) K/uL Immature Gran # (Auto) (0.01-0.20) K/uL PT 17.0 H (9.0-12.0) Seconds INR 1.6 H (0.9-1.1) Sodium (136-145) mmol/L Potassium (3.5-5.1) mmol/L Chloride (98-107) mmol/L Carbon Dioxide (21-32) mmol/L Anion Gap (3-11) BUN (6-23) mg/dl Creatinine (0.6-1.4) mg/dl Est Cr Clr Drug Dosing Est GFR ( Amer) ml/min Est GFR (Non-Af Amer) ml/min BUN/Creatinine Ratio (10-20) Glucose (70-99(Fasting)) mg/dl Lactate 3.2 H* 4.5 H* (0.4-2.0) mmol/L Calcium (8.6-10.3) mg/dl Total Bilirubin (0.2-1.0) mg/dl AST (13-39) U/L ALT (7-52) U/L Alkaline Phosphatase (34-104) U/L Ammonia 40.0 (18-72) umol/L Total Protein (6.0-8.3) gm/dl Albumin (3.4-5.0) gm/dl Globulin (2.5-4.0) gm/dl Albumin/Globulin Ratio (0.9-2) Lipase (11-82) U/L Urine Color Pending Urine Appearance Pending Urine pH Pending Ur Specific Bradford Pending Urine Protein Pending Urine Glucose (UA) Pending Urine Ketones Pending Urine Blood Pending Urine Nitrite Pending Urine Bilirubin Pending Urine Urobilinogen Pending Ur Leukocyte Esterase Pending 10/04/23 Range/Units 06:34 WBC 5.43 (4.8-10.8) K/ul RBC 3.67 L (4.70-6.10) M/uL Hgb 13.0 L (14.0-18.0) g/dl Hct 38.3 L (42.0-52.0) % MCV 104.4 H (80.0-100.0) fL MCH 35.4 H (25.0-34.0) pg MCHC 33.9 (32.0-36.0) g/dL RDW Std Deviation 70.3 H (36.4-46.3) fL RDW Coeff of [place] 18.1 H (11.5-14.5) % Plt Count 94 L (130-400) K/uL MPV 11.0 (9.4-12.4) fL Immature Gran % (Auto) 0.4 % Neut % (Auto) 71.0 % Lymph % (Auto) 8.5 % [place] % (Auto) 16.8 % Eos % (Auto) 2.0 % Baso % (Auto) 1.3 % Neut # (Auto) 3.86 (1.40-6.50) K/uL Lymph # (Auto) 0.46 L (1.20-3.40) K/uL [place] # (Auto) 0.91 H (0.11-0.59) K/uL Eos # (Auto) 0.11 (0.00-0.50) K/uL Baso # (Auto) 0.07 (0.00-0.20) K/uL Immature Gran # (Auto) 0.02 (0.01-0.20) K/uL PT (9.0-12.0) Seconds INR (0.9-1.1) Sodium 136 (136-145) mmol/L Potassium 3.7 (3.5-5.1) mmol/L Chloride 104 (98-107) mmol/L Carbon Dioxide 22 (21-32) mmol/L Anion Gap 10 (3-11) BUN 11 (6-23) mg/dl Creatinine 1.03 (0.6-1.4) mg/dl Est Cr Clr Drug Dosing Not Reportable Est GFR ( Amer) 91.7 ml/min Est GFR (Non-Af Amer) 79.1 ml/min BUN/Creatinine Ratio 10.7 (10-20) Glucose 141 H (70-99(Fasting)) mg/dl Lactate (0.4-2.0) mmol/L Calcium 8.6 (8.6-10.3) mg/dl Total Bilirubin 4.7 H (0.2-1.0) mg/dl AST 60 H (13-39) U/L ALT 25 (7-52) U/L Alkaline Phosphatase 120 H (34-104) U/L Ammonia (18-72) umol/L Total Protein 6.9 (6.0-8.3) gm/dl Albumin 2.4 L (3.4-5.0) gm/dl Globulin 4.5 H (2.5-4.0) gm/dl Albumin/Globulin Ratio 0.5 L (0.9-2) Lipase 40 (11-82) U/L Urine Color Urine Appearance Urine pH Ur Specific [place] Urine Protein Urine Glucose (UA) Urine Ketones Urine Blood Urine Nitrite Urine Bilirubin Urine Urobilinogen Ur Leukocyte Esterase Diagnostic Findings CTAP: FINDINGS: Lower chest: Left pleural effusion is moderate in size, enlarged from prior exam. Liver: Nodular contour of the liver is seen compatible with cirrhosis. Right calcification is unchanged. Gallbladder and biliary tree: No calcified gallstones. Normal caliber wall. No intra- or extrahepatic biliary ductal dilation. Pancreas: Unremarkable, no focal lesions. Spleen: Unremarkable. Adrenals: Unremarkable. Kidneys and ureters: Nonobstructive nephrolithiasis is seen. Bladder: Limited evaluation due to underdistention. Reproductive organs: Unremarkable. Bowel: The appendix is normal. Lymph nodes Retroperitoneal: Unremarkable. Pelvic: Unremarkable. Mesenteric: Unremarkable. Peritoneum: Moderate ascites is seen. Vessels: Extensive varices are seen most prominently about the spleen. Abdominal wall: Body wall edema is seen. A fluid-containing umbilical hernia is seen. Fat-containing left inguinal hernia is seen. Bones: Degenerative changes in the visualized spine. IMPRESSION: 1. Cirrhosis with moderate to large ascites, significantly increased from prior exam. Stigmata of portal hypertension again noted. 2. Stable right hepatic calcification. 3. Additional findings as above. No other acute abnormalities are seen.
[2023-10-04 12:36] LABS: Bilirubin Urine 1+ (Negative)
[2023-10-04 13:00] LABS: Calcium Oxalate Crystals Urine Present (None Prsent)
[2023-10-04 13:05] LABS: Bacteria Urine Automated 1+ (Negative)
--- NOTE | 2023-10-04 13:49 | Ultrasound Report ---
Ultrasound-guided paracentesis INDICATION: Ascites PROCEDURE: Procedure and risks were explained. Informed consent was obtained. A final timeout was com pleted. The abdomen was prepped and draped in sterile fashion. 1% buffered lidocaine was utilized for skin anesthesia. Utilizing ultrasound guidance, a 5 [place] safety centesis catheter was advanced into the left lower q uadrant pocket of ascites. Ultrasound images were obtained. 5000 mL of ascites fluid was removed with 1 L sent to laboratory for analysis. The catheter was removed and Band-Aid applied. The patient tole rated the procedure well. Vital signs we monitored postprocedure. IMPRESSION: Ultrasound-guided paracentesis as above. Performed, dictated, and signed by Maximo Moore PA-C; to be co-signed by Dr. Spike Barnard. Electronically signed by: Spike Barnard M.D. 10/04/2023 6:56 PM
[2023-10-04 14:32] LABS: Albumin Peritoneal Fluid < 1.5 gm/dl; Amylase Peritoneal Fluid 12 U/L
[2023-10-04 14:38] LABS: Glucose Peritoneal Fluid 147 mg/dl; LDH Peritoneal Fluid 48 U/L; Lipase Peritoneal Fluid 13 U/L; Total Protein Peritoneal Fluid < 3.0 gm/dl
[2023-10-04 15:04] LABS: Appearance Peritoneal Fluid Clear; Color Peritoneal Fluid Yellow; Lymphocytes, Fluid 19 %; Mono,Macrophage,Mesothelial 51 %; Neutrophils, Fluid 30 %; RBC Peritoneal Fluid Auto < 2000 /uL; WBC Peritoneal Fluid Auto 214 /ul (0-300)
--- NOTE | 2023-10-04 15:54 | Electrocardiogram Report ---
Test Reason : Blood Pressure : / mmHG Vent. Rate : 104 BPM Atrial Rate : 104 BPM P-R Int : 146 ms QRS Dur : 086 ms QT Int : 386 ms P-R-T Axes : 040 035 047 degrees QTc Int : 507 ms Sinus tachycardia Otherwise normal ECG When compared with ECG of 08-SEP-2023 20:21, No significant change was found Confirmed by Rehan Brown ([id number]) on 10/04/2023 3:53:43 PM Referred By: REFERRED SELF Confirmed By:Rehan Brown
[2023-10-04] MEDS: cefTRIAXone SODIUM 2,000 MG in DEXTROSE 5 % MINI-B 50 ML IV SCH (16:28)
[2023-10-04] MEDS: FUROSEMIDE 20 MG TAB PO SCH (16:29)
[2023-10-04] MEDS: LACTULOSE SYRUP 30 GM/45 ML UDP PO SCH ×2 (16:30→21:29)
[2023-10-04] MEDS: SPIRONOLACTONE 25 MG TAB PO SCH (16:30)
[2023-10-04] MEDS ORDERED: SODIUM CHLORIDE 0.9% 500 ML IV ONE ×2 (17:10→19:20)
[2023-10-04] MEDS ORDERED: Nursing to Pharmacy Communication SCH (17:30)
[2023-10-04] MEDS: INSULIN ASPART PER UNIT CHARGE SC SCH ×2 (18:25→21:26)
[2023-10-04] MEDS: rifAXIMin 550 MG TABLET PO SCH (21:29)
[2023-10-05] MEDS ORDERED: traMADol HCL 50 MG TABLET PO STA (05:22)
[2023-10-05 07:27] LABS: Hematocrit (blood only) 29.3 % (42.0-52.0); Hemoglobin 10.2 g/dl (14.0-18.0); Mean Corpuscular Hemoglobin 35.7 pg (25.0-34.0); Mean Corpuscular Hgb Conc 34.8 g/dL (32.0-36.0); Mean Corpuscular Volume 102.4 fL (80.0-100.0); Mean Platelet Volume 10.6 fL (9.4-12.4); Platelet Count 56 K/uL (130-400); RDW Coefficient of Variation 17.6 % (11.5-14.5); RDW Standard Deviation 66.5 fL (36.4-46.3); Red Blood Count 2.86 M/uL (4.70-6.10); White Blood Count 4.08 K/ul (4.8-10.8)
[2023-10-05 07:42] LABS: Albumin Level 2.3 gm/dl (3.4-5.0); BUN Creatinine Ratio 11.3 (10-20); Bilirubin,Total 4.1 mg/dl (0.2-1.0); Calcium 8.2 mg/dl (8.6-10.3); Creatinine Clr Calc Pharmacy 134.2 ml/min; Est GFR (African American) 113.3 ml/min; Est GFR (Non-African American) 97.8 ml/min; Magnesium 1.6 mg/dl (1.7-2.4); Phosphorus 2.5 mg/dl (2.5-4.9); Potassium 3.4 mmol/L (3.5-5.1); Total Protein 5.5 gm/dl (6.0-8.3)
[2023-10-05 08:03] LABS: INR 1.9 (0.9-1.1); Prothrombin Time 19.5 Seconds (9.0-12.0)
[2023-10-05] MEDS ORDERED: POTASSIUM CHLORIDE CRTAB 20 MEQ TABCR PO STA (08:04)
[2023-10-05] MEDS: allopurinoL 300 MG TAB PO SCH (08:17)
[2023-10-05] MEDS: LACTULOSE SYRUP 30 GM/45 ML UDP PO SCH ×3 (08:17→17:54)
[2023-10-05] MEDS: rifAXIMin 550 MG TABLET PO SCH ×2 (08:17→20:59)
[2023-10-05] MEDS: MULTIVITAMIN TAB PO SCH (08:17)
[2023-10-05] MEDS: ASCORBIC ACID 500 MG TAB PO SCH (08:17)
[2023-10-05] MEDS: ATORVASTATIN 20 MG TAB PO SCH (08:17)
[2023-10-05] MEDS: INSULIN ASPART PER UNIT CHARGE SC SCH ×4 (09:48→20:51)
--- NOTE | 2023-10-05 12:58 | Gastroenterology Progress Note ---
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 Doing better after 5 L tap. No complaints today; abd soft, nontender. - Diagnostic and therapeutic paracenteses yesterday - no SBB. Additional fluid studies pending. - Pt had IV albumin - Await UCX, BCX - Empiric ABX - Radiology noted patent PVT on CT; will defer hep doppler - Continue diuretics - Lasix 20 mg daily, spironolactone 50 mg daily - Should have urology f/u for voiding issues; he states this is scheduled soon - As with his previous admission, he needs colonoscopy for cecal thickening - this is being arranged thru GI office, slated for December - Daily MELD labs while inpt - High protein (60-80 gms daily), low fat, low carbohydrate diet and low salt diet (at most 2 grams a day). Avoid salt containing manufactured food such as canned/boxed foods. - Need to avoid liver toxins including herbal supplements. The patient should avoid excess tylenol and may take Acetaminophen 2 grams a week. Avoid NSAIDs. - F/u with transplant eval as planned - pulm, cards, etc - GI will sign off, please call with questions Thank you for allowing us to participate in the care of this patient. Please call with any acute changes, questions or concerns. Please see addendum below with additional recommendation from my supervising physician. Admission and Anticipated Discharge Date Admission Date: October 04, 2023 Supervising Physician Co-Signing Physician Notes Agree with pe and plan as documented Decompensated gonzales cirrhosis with ascites, meld neymar 19, being considered for oltx listing thru [facility] [place] (some tests still need to be done- pfts', echo, etc) Has been off diuretics for a month, admitted with ascites s/p tap, reinitiated diuretcis during this admission. With a uti on treatment. He appears to be very functional and would be a good transplant candidate given his current status. Agree with further plan of care as documented. Subjective Patient seen and examined, chart reviewed. No acute events overnight. Pt feels much better . No abd pain. No nausea, vomiting; tolerating diet. Bowels and urine moving well. No melena, hematochezia, hematemesis. Physical Exam Constitutional: well developed, well nourished and comfortable; no acute distress Neck: trachea midline Respiratory: normal respiratory effort Auscultation: + diminished lung sounds Cardiovascular: RRR, no murmur, no edema Gastrointestinal (Abdomen): abd soft, nontender, mild ascites, nontense Skin: no rashes, warm and dry Psychiatric: A+Ox3, euthymic affect Results & Data Vital Signs (Past 12 Hours) Vital Signs Temp Pulse Pulse Resp BP Pulse Ox O2 Del Method 10/05/23 12:17 36.7 C 93 H 18 122/78 93 Room Air 10/05/23 08:25 99 H 10/05/23 07:56 36.5 C 87 18 110/68 96 Room Air 10/05/23 03:11 36.7 C 96 H 20 117/72 96 Room Air Laboratory Results 10/05/23 10/05/23 10/05/23 Range/Units 12:06 08:11 06:45 WBC 4.08 L (4.8-10.8) K/ul RBC 2.86 L (4.70-6.10) M/uL Hgb 10.2 L (14.0-18.0) g/dl Hct 29.3 L (42.0-52.0) % MCV 102.4 H (80.0-100.0) fL MCH 35.7 H (25.0-34.0) pg MCHC 34.8 (32.0-36.0) g/dL RDW Std Deviation 66.5 H (36.4-46.3) fL RDW Coeff of Polo 17.6 H (11.5-14.5) % Plt Count 56 L (130-400) K/uL MPV 10.6 (9.4-12.4) fL PT 19.5 H (9.0-12.0) Seconds INR 1.9 H (0.9-1.1) Sodium 135 L (136-145) mmol/L Potassium 3.4 L (3.5-5.1) mmol/L Chloride 106 (98-107) mmol/L Carbon Dioxide 24 (21-32) mmol/L Anion Gap 5 (3-11) BUN 9 (6-23) mg/dl Creatinine 0.80 (0.6-1.4) mg/dl Est Cr Clr Drug Dosing 134.2 ml/min Est GFR ( Amer) 113.3 ml/min Est GFR (Non-Af Amer) 97.8 ml/min BUN/Creatinine Ratio 11.3 (10-20) Glucose 94 (70-99(Fasting)) mg/dl POC Glucose 130 H 94 (70-99) mg/dl Lactate (0.4-2.0) mmol/L Calcium 8.2 L (8.6-10.3) mg/dl Phosphorus 2.5 (2.5-4.9) mg/dl Magnesium 1.6 L (1.7-2.4) mg/dl Total Bilirubin 4.1 H (0.2-1.0) mg/dl Direct Bilirubin 1.0 H (0-0.2) mg/dl AST 44 H (13-39) U/L ALT 16 (7-52) U/L Alkaline Phosphatase 81 (34-104) U/L B-Natriuretic Peptide (0-100) pg/ml Total Protein 5.5 L D (6.0-8.3) gm/dl Albumin 2.3 L (3.4-5.0) gm/dl Procalcitonin (0-0.5) ng/ml Urine WBC (Auto) (0-5) /hpf Urine RBC (Auto) (0-4) /hpf U Hyaline Cast (Auto) (0-5) /lpf U Epithel Cells (Auto) (0-5) /lpf Urine Bacteria (Auto) (Negative) Calcium Oxalate Crystal (None Prsent) Fluid Neutrophils % % Fluid Lymphocytes % % Fluid Meso/Macro/Marion % % Fluid Comment Peritoneal Color Peritoneal Appearance Peritoneal WBC (Auto) (0-300) /ul Peritoneal RBC (Auto) /uL Peritoneal Tot Protein gm/dl Peritoneal Albumin gm/dl Peritoneal LDH U/L Peritoneal Glucose mg/dl Peritoneal Amylase U/L Peritoneal Lipase U/L Peritoneal Triglycerid 10/04/23 10/04/23 10/04/23 Range/Units Unknown 19:57 19:41 WBC (4.8-10.8) K/ul RBC (4.70-6.10) M/uL Hgb (14.0-18.0) g/dl Hct (42.0-52.0) % MCV (80.0-100.0) fL MCH (25.0-34.0) pg MCHC (32.0-36.0) g/dL RDW Std Deviation (36.4-46.3) fL RDW Coeff of Polo (11.5-14.5) % Plt Count (130-400) K/uL MPV (9.4-12.4) fL PT (9.0-12.0) Seconds INR (0.9-1.1) Sodium (136-145) mmol/L Potassium (3.5-5.1) mmol/L Chloride (98-107) mmol/L Carbon Dioxide (21-32) mmol/L Anion Gap (3-11) BUN (6-23) mg/dl Creatinine (0.6-1.4) mg/dl Est Cr Clr Drug Dosing ml/min Est GFR ( Amer) ml/min Est GFR (Non-Af Amer) ml/min BUN/Creatinine Ratio (10-20) Glucose (70-99(Fasting)) mg/dl POC Glucose 151 H (70-99) mg/dl Lactate 2.7 H* (0.4-2.0) mmol/L Calcium (8.6-10.3) mg/dl Phosphorus (2.5-4.9) mg/dl Magnesium (1.7-2.4) mg/dl Total Bilirubin (0.2-1.0) mg/dl Direct Bilirubin (0-0.2) mg/dl AST (13-39) U/L ALT (7-52) U/L Alkaline Phosphatase (34-104) U/L B-Natriuretic Peptide (0-100) pg/ml Total Protein (6.0-8.3) gm/dl Albumin (3.4-5.0) gm/dl Procalcitonin (0-0.5) ng/ml Urine WBC (Auto) 5-10 H (0-5) /hpf Urine RBC (Auto) >30 H (0-4) /hpf U Hyaline Cast (Auto) 1-5 (0-5) /lpf U Epithel Cells (Auto) >30 H (0-5) /lpf Urine Bacteria (Auto) 1+ H (Negative) Calcium Oxalate Crystal Present A (None Prsent) Fluid Neutrophils % % Fluid Lymphocytes % % Fluid Meso/Macro/Marion % % Fluid Comment Peritoneal Color Peritoneal Appearance Peritoneal WBC (Auto) (0-300) /ul Peritoneal RBC (Auto) /uL Peritoneal Tot Protein gm/dl Peritoneal Albumin gm/dl Peritoneal LDH U/L Peritoneal Glucose mg/dl Peritoneal Amylase U/L Peritoneal Lipase U/L Peritoneal Triglycerid 10/04/23 10/04/23 10/04/23 Range/Units 17:27 16:55 13:58 WBC (4.8-10.8) K/ul RBC (4.70-6.10) M/uL Hgb (14.0-18.0) g/dl Hct (42.0-52.0) % MCV (80.0-100.0) fL MCH (25.0-34.0) pg MCHC (32.0-36.0) g/dL RDW Std Deviation (36.4-46.3) fL RDW Coeff of Polo (11.5-14.5) % Plt Count (130-400) K/uL MPV (9.4-12.4) fL PT (9.0-12.0) Seconds INR (0.9-1.1) Sodium (136-145) mmol/L Potassium (3.5-5.1) mmol/L Chloride (98-107) mmol/L Carbon Dioxide (21-32) mmol/L Anion Gap (3-11) BUN (6-23) mg/dl Creatinine (0.6-1.4) mg/dl Est Cr Clr Drug Dosing ml/min Est GFR ( Amer) ml/min Est GFR (Non-Af Amer) ml/min BUN/Creatinine Ratio (10-20) Glucose (70-99(Fasting)) mg/dl POC Glucose 134 H 134 H (70-99) mg/dl Lactate 3.0 H* (0.4-2.0) mmol/L Calcium (8.6-10.3) mg/dl Phosphorus (2.5-4.9) mg/dl Magnesium (1.7-2.4) mg/dl Total Bilirubin (0.2-1.0) mg/dl Direct Bilirubin (0-0.2) mg/dl AST (13-39) U/L ALT (7-52) U/L Alkaline Phosphatase (34-104) U/L B-Natriuretic Peptide 148 H (0-100) pg/ml Total Protein (6.0-8.3) gm/dl Albumin (3.4-5.0) gm/dl Procalcitonin 0.40 (0-0.5) ng/ml Urine WBC (Auto) (0-5) /hpf Urine RBC (Auto) (0-4) /hpf U Hyaline Cast (Auto) (0-5) /lpf U Epithel Cells (Auto) (0-5) /lpf Urine Bacteria (Auto) (Negative) Calcium Oxalate Crystal (None Prsent) Fluid Neutrophils % % Fluid Lymphocytes % % Fluid Meso/Macro/Marion % % Fluid Comment Peritoneal Color Peritoneal Appearance Peritoneal WBC (Auto) (0-300) /ul Peritoneal RBC (Auto) /uL Peritoneal Tot Protein gm/dl Peritoneal Albumin gm/dl Peritoneal LDH U/L Peritoneal Glucose mg/dl Peritoneal Amylase U/L Peritoneal Lipase U/L Peritoneal Triglycerid 10/04/23 Range/Units 13:30 WBC (4.8-10.8) K/ul RBC (4.70-6.10) M/uL Hgb (14.0-18.0) g/dl Hct (42.0-52.0) % MCV (80.0-100.0) fL MCH (25.0-34.0) pg MCHC (32.0-36.0) g/dL RDW Std Deviation (36.4-46.3) fL RDW Coeff of Polo (11.5-14.5) % Plt Count (130-400) K/uL MPV (9.4-12.4) fL PT (9.0-12.0) Seconds INR (0.9-1.1) Sodium (136-145) mmol/L Potassium (3.5-5.1) mmol/L Chloride (98-107) mmol/L Carbon Dioxide (21-32) mmol/L Anion Gap (3-11) BUN (6-23) mg/dl Creatinine (0.6-1.4) mg/dl Est Cr Clr Drug Dosing ml/min Est GFR ( Amer) ml/min Est GFR (Non-Af Amer) ml/min BUN/Creatinine Ratio (10-20) Glucose (70-99(Fasting)) mg/dl POC Glucose (70-99) mg/dl Lactate (0.4-2.0) mmol/L Calcium (8.6-10.3) mg/dl Phosphorus (2.5-4.9) mg/dl Magnesium (1.7-2.4) mg/dl Total Bilirubin (0.2-1.0) mg/dl Direct Bilirubin (0-0.2) mg/dl AST (13-39) U/L ALT (7-52) U/L Alkaline Phosphatase (34-104) U/L B-Natriuretic Peptide (0-100) pg/ml Total Protein (6.0-8.3) gm/dl Albumin (3.4-5.0) gm/dl Procalcitonin (0-0.5) ng/ml Urine WBC (Auto) (0-5) /hpf Urine RBC (Auto) (0-4) /hpf U Hyaline Cast (Auto) (0-5) /lpf U Epithel Cells (Auto) (0-5) /lpf Urine Bacteria (Auto) (Negative) Calcium Oxalate Crystal (None Prsent) Fluid Neutrophils % 30 % Fluid Lymphocytes % 19 % Fluid Meso/Macro/Marion % 51 % Fluid Comment Peritoneal Color Yellow Peritoneal Appearance Clear Peritoneal WBC (Auto) 214 (0-300) /ul Peritoneal RBC (Auto) < 2000 /uL Peritoneal Tot Protein < 3.0 gm/dl Peritoneal Albumin < 1.5 gm/dl Peritoneal LDH 48 U/L Peritoneal Glucose 147 mg/dl Peritoneal Amylase 12 U/L Peritoneal Lipase 13 U/L Peritoneal Triglycerid Pending
[2023-10-05] MEDS: cefTRIAXone SODIUM 2,000 MG in DEXTROSE 5 % MINI-B 50 ML IV SCH (13:24)
--- NOTE | 2023-10-05 14:10 | Hospitalist Progress Note ---
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 hgb 13. No needs for transfusion or risk of spontaneous bleeding currently. - AST 60, Total eldon 4.7, INR 1.6, ALT 25, Alk phos 120, albumin 2.4 - CT abdomen reviewed personally showing : 1. Cirrhosis with moderate to large ascites, significantly increased from prior exam. Stigmata of portal hypertension again noted. 2. Stable right hepatic calcification. Left pleural effusion is moderate in size, nonobstructive nephrolithiasis, under distention of the bladder, extensive varices most prominently seen about the spleen - Will check with radiology re r/o PVT on contrast CT -Patient reports that he was stopped on diuretics after his last hospital stay here, also is off omeprazole - Diagnostic and therapeutic paracentesis ordered, obtain cytology, cell count and then will start empiric antibiotics with ceftriaxone 2 g IV q 24h to treat empirically for if SBP - do not assume this right now. - IV albumin 1.5 mg/kg started with 50 g IV albumin, Plan to give today as day 1 and on day 3 - GI consulted -appreciate input and recommendation - History of recent transplant evaluation on 09/18, planning on discussion with liver transplant team which was to happen last week, pt is to have MRI liver, cardiac clearance, and weight loss of 20-30 lbs - MELD score of 20 today on calculation -Status post 5 L of acetic fluid paracentesis -Gram stain is negative, blood culture is pending, urine culture no growth. And it is transudative -Will discontinue IV antibiotic tomorrow Moderate Aortic Stenosis - Noted on exam, chronic, stable -Status post paracentesis of 5 L and the patient has been feeling much better Left pleural Effusion - As noted above, Pt is on room air, no o2 needs at baseline, monitor DM II - Last a1c of 5.9 on 09/18, pt is on oral hypoglycemic medications, will hold these and use ISS for now - Currently NPO - Chronic, stable and has improved a1c from 6.3 recently HLD - Cont statin therapy, chronic, stable Morbid Obesity - Wt of 130 on 09/18 on outpt epic review, obtain daily weights here - Encourage weight loss and exercise regimen to help meet transplant qualifications as above, goal 20-30 lbs Gout - Chronic, stable, Cont allopurinol DVT ppx: scds Lines: 2 PIV FEN/GI: NPO, gentle maintenece fluids CODE: Full, discussed at bedside Dispo: From home, likely to remain in hospital x 1-2 days Will get PT and OT evaluation and possible discharge tomorrow (10) Sepsis: (11) UTI (urinary tract infection): Admission and Anticipated Discharge Date Admission Date: October 04, 2023 Subjective 10/05/2023 The patient was seen and examined in medical telemetry unit He was admitted with abdominal pain and is a status post paracentesis of 5 L The fluid is benign and the patient has been feeling much Denies any other significant symptoms Review of Systems Review of Systems: All systems reviewed and are unremarkable except as noted below Physical Exam Physical Exam: Lying in bed without any acute distress Constitutional: well developed, well nourished and + obese; not ill appearing Eyes: PERRL, conjunctivae normal, anicteric sclerae ENMT: external ear and nose normal, oropharynx normal Neck: trachea midline, no thyromegaly Respiratory: no respiratory distress Auscultation: + diminished lung sounds and + crackles (Minimal crackles at the bases) Cardiovascular: Rate/Rhythm: regular rate and regular rhythm; not tachycardic Heart Sounds: normal S1 and normal S2; no murmur Extremities: + edema (Trace edema bilaterally) Gastrointestinal (Abdomen): Inspection/Auscultation: + abdomen distended and normal bowel sounds Percussion/Palpation: abdomen soft and + ascites (Ascites status post paracentesis); abdomen nontender Musculoskeletal: No acute arthritis involving any of the joint Neurologic: normal touch/pain/proprioception and moves all extremities; no focal motor deficits Psychiatric: A+Ox3, euthymic affect Lymphatic: no cervical or axillary lymphadenopathy Results & Data Results & Data Vital Signs (Past 12 Hours) Vital Signs Temp Pulse Pulse Resp BP Pulse Ox O2 Del Method 10/05/23 12:17 36.7 C 93 H 18 122/78 93 Room Air 10/05/23 08:25 99 H 10/05/23 07:56 36.5 C 87 18 110/68 96 Room Air 10/05/23 03:11 36.7 C 96 H 20 117/72 96 Room Air Laboratory Results Short CBC 10/05/23 Range/Units 06:45 WBC 4.08 L (4.8-10.8) K/ul Hgb 10.2 L (14.0-18.0) g/dl Hct 29.3 L (42.0-52.0) % Plt Count 56 L (130-400) K/uL BMP 10/05/23 06:45 Sodium 135 L Potassium 3.4 L Chloride 106 Carbon Dioxide 24 BUN 9 Creatinine 0.80 Glucose 94 Calcium 8.2 L Liver Function 10/05/23 Range/Units 06:45 Total Bilirubin 4.1 H (0.2-1.0) mg/dl Direct Bilirubin 1.0 H (0-0.2) mg/dl AST 44 H (13-39) U/L ALT 16 (7-52) U/L Alkaline Phosphatase 81 (34-104) U/L Albumin 2.3 L (3.4-5.0) gm/dl Medications Administered Current Inpatient Medications Allopurinol (Allopurinol 300 Mg Tab) 300 mg PO [facility] Stop: 11/04/23 08:59 Last Admin: 10/05/23 08:17 Dose: 300 mg Ascorbic Acid (Ascorbic Acid 500 Mg Tab) 1,[facility] Stop: 11/04/23 08:59 Last Admin: 10/05/23 08:17 Dose: 1,000 mg Atorvastatin Calcium (Atorvastatin 20 Mg Tab) 20 [facility] Stop: 11/04/23 08:59 Last Admin: 10/05/23 08:17 Dose: 20 mg Dextrose (Dextrose 50% 50 Ml Syringe) 25 - 50 ml IV UD PRN; Protocol PRN Reason: Hypoglycemia Protocol Stop: 11/03/23 12:11 Furosemide (Furosemide 20 Mg Tab) [facility] Stop: 11/03/23 15:14 Last Admin: 10/04/23 16:29 Dose: 20 mg Glucagon (Glucagon For Inj 1 Mg Vial) 1 mg SQ UD PRN; Protocol PRN Reason: Hypoglycemia Protocol Stop: 11/03/23 12:11 Glucose (Glucose 10 Tab/Tube) 4 - 8 tab PO UD PRN; Protocol PRN Reason: Hypoglycemia Treatment Stop: 11/03/23 12:11 Glucose (Glucose 40% Gel 15 Gm Tube) 15 - 30 gm PO UD PRN; Protocol PRN Reason: Hypoglycemia Protocol Stop: 11/03/23 12:11 Sodium Chloride (Nss) 1,000 mls @ 125 mls/hr IV .Q8H [facility] Stop: 11/03/23 06:59 Last Infusion: 10/05/23 12:10 Dose: Infused Ceftriaxone Sodium 2,000 mg/ (Dextrose) 50 mls @ 100 mls/hr IV Q24H [facility]; Protocol Stop: 10/14/23 15:14 Last Infusion: 10/05/23 13:58 Dose: Infused Insulin Aspart (Insulin Aspart Per Unit Charge) 0 units SC ACHS [facility] Stop: 11/03/23 18:14 Last Admin: 10/05/23 13:23 Dose: 7 units Lactulose (Lactulose Syrup 30 Gm/45 Ml Udp) 30 gm PO TID [facility] Stop: 11/03/23 13:59 Last Admin: 10/05/23 13:24 Dose: 30 gm Miscellaneous (Carbohydrates For Hypoglycemia ) 15 - 30 gm PO UD PRN PRN Reason: Hypoglycemia Protocol Stop: 11/03/23 12:11 Multivitamins (Multivitamin Tab) 1 tab PO QAM [facility] Stop: 11/04/23 08:59 Last Admin: 10/05/23 08:17 Dose: 1 tab Ondansetron HCl (Ondansetron Inj 2 Mg/Ml 2 Ml Vial) 4 mg IV Q4H PRN PRN Reason: Nausea And Vomiting Stop: 11/03/23 10:46 Rifaximin (Rifaximin 550 Mg Tablet) 550 mg PO BID [facility] Stop: 11/03/23 20:59 Last Admin: 10/05/23 08:17 Dose: 550 mg Spironolactone (Spironolactone 25 Mg Tab) 50 mg PO QAM [facility] Stop: 11/03/23 15:14 Last Admin: 10/04/23 16:30 Dose: 50 mg
[2023-10-06 06:59] LABS: INR 1.9 (0.9-1.1); Prothrombin Time 19.7 Seconds (9.0-12.0)
[2023-10-06] MEDS: FUROSEMIDE 20 MG TAB PO SCH (08:04)
[2023-10-06] MEDS: ATORVASTATIN 20 MG TAB PO SCH (08:04)
[2023-10-06] MEDS: MULTIVITAMIN TAB PO SCH (08:04)
[2023-10-06] MEDS: rifAXIMin 550 MG TABLET PO SCH (08:04)
[2023-10-06] MEDS: ASCORBIC ACID 500 MG TAB PO SCH (08:04)
[2023-10-06] MEDS: allopurinoL 300 MG TAB PO SCH (08:04)
[2023-10-06] MEDS: SPIRONOLACTONE 25 MG TAB PO SCH (08:05)
[2023-10-06] MEDS: LACTULOSE SYRUP 30 GM/45 ML UDP PO SCH ×2 (08:05→14:42)
[2023-10-06] MEDS: INSULIN ASPART PER UNIT CHARGE SC SCH ×3 (09:10→18:09)
[2023-10-06] MEDS ORDERED: POTASSIUM CHLORIDE CRTAB 20 MEQ TABCR PO STA (11:01)
[2023-10-06] MEDS: cefTRIAXone SODIUM 2,000 MG in DEXTROSE 5 % MINI-B 50 ML IV SCH (14:42)
[2023-10-06 15:10] LABS: Basophils # (auto) 0.07 K/uL (0.00-0.20); Basophils % (auto) 1.6 %; Eosinophils % (auto) 4.6 %; Hematocrit (blood only) 29.9 % (42.0-52.0); Hemoglobin 10.3 g/dl (14.0-18.0); Immature Granulocytes # (auto) 0.01 K/uL (0.01-0.20); Immature Granulocytes % (auto) 0.2 %; Lymphocytes # (auto) 0.52 K/uL (1.20-3.40); Lymphocytes % (auto) 11.9 %; Mean Corpuscular Hemoglobin 36.3 pg (25.0-34.0); Mean Corpuscular Hgb Conc 34.4 g/dL (32.0-36.0); Mean Corpuscular Volume 105.3 fL (80.0-100.0); Mean Platelet Volume 10.8 fL (9.4-12.4); Monocytes # (auto) 0.96 K/uL (0.11-0.59); Monocytes % (auto) 21.9 %; Neutrophils # (auto) 2.62 K/uL (1.40-6.50); Neutrophils % (auto) 59.8 %; Platelet Count 66 K/uL (130-400); Red Blood Count 2.84 M/uL (4.70-6.10); White Blood Count 4.38 K/ul (4.8-10.8)
[2023-10-06 15:28] LABS: Albumin Globulin Ratio 0.7 (0.9-2); Albumin Level 2.2 gm/dl (3.4-5.0); BUN Creatinine Ratio 10.1 (10-20); Bilirubin,Total 3.1 mg/dl (0.2-1.0); Calcium 7.8 mg/dl (8.6-10.3); Creatinine Clr Calc Pharmacy 136.6 ml/min; Est GFR (African American) 113.9 ml/min; Est GFR (Non-African American) 98.3 ml/min; Globulin 3.2 gm/dl (2.5-4.0); Potassium 3.6 mmol/L (3.5-5.1); Total Protein 5.4 gm/dl (6.0-8.3)
--- NOTE | 2023-10-06 15:30 | Hospitalist Progress Note ---
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 hgb 13. No needs for transfusion or risk of spontaneous bleeding currently. - AST 60, Total eldon 4.7, INR 1.6, ALT 25, Alk phos 120, albumin 2.4 - CT abdomen reviewed personally showing : 1. Cirrhosis with moderate to large ascites, significantly increased from prior exam. Stigmata of portal hypertension again noted. 2. Stable right hepatic calcification. Left pleural effusion is moderate in size, nonobstructive nephrolithiasis, under distention of the bladder, extensive varices most prominently seen about the spleen - Will check with radiology re r/o PVT on contrast CT -Patient reports that he was stopped on diuretics after his last hospital stay here, also is off omeprazole - Diagnostic and therapeutic paracentesis ordered, obtain cytology, cell count and then will start empiric antibiotics with ceftriaxone 2 g IV q 24h to treat empirically for if SBP - do not assume this right now. - IV albumin 1.5 mg/kg started with 50 g IV albumin, Plan to give today as day 1 and on day 3 - GI consulted -appreciate input and recommendation - History of recent transplant evaluation on 09/18, planning on discussion with liver transplant team which was to happen last week, pt is to have MRI liver, cardiac clearance, and weight loss of 20-30 lbs - MELD score of 20 today on calculation -Status post 5 L of acetic fluid paracentesis -Gram stain is negative, blood culture is pending, urine culture no growth. And it is transudative -No signs and or symptoms of abdominal infection -Denies any more abdominal pain and or distention -Has been ambulating without any difficulties -He will be discharged home this afternoon on medications as advised by the GI Moderate Aortic Stenosis - Noted on exam, chronic, stable -Status post paracentesis of 5 L and the patient has been feeling much better Left pleural Effusion - As noted above, Pt is on room air, no o2 needs at baseline, monitor DM II - Last a1c of 5.9 on 09/18, pt is on oral hypoglycemic medications, will hold these and use ISS for now - Currently NPO - Chronic, stable and has improved a1c from 6.3 recently HLD - Cont statin therapy, chronic, stable Morbid Obesity - Wt of 130 on 09/18 on outpt epic review, obtain daily weights here - Encourage weight loss and exercise regimen to help meet transplant qualifications as above, goal 20-30 lbs Gout - Chronic, stable, Cont allopurinol DVT ppx: scds Lines: 2 PIV FEN/GI: NPO, gentle maintenece fluids CODE: Full, discussed at bedside Dispo: From home, likely to remain in hospital x 1-2 days Will get PT and OT evaluation and possible discharge tomorrow Discharge this afternoon (10) Sepsis: (11) UTI (urinary tract infection): Admission and Anticipated Discharge Date Admission Date: October 04, 2023 Subjective 10/05/2023 The patient was seen and examined in medical telemetry unit He was admitted with abdominal pain and is a status post paracentesis of 5 L The fluid is benign and the patient has been feeling much Denies any other significant symptoms 10/06/2023 The patient was seen and examined in medical telemetry unit He has been feeling much better and denies any significant symptoms He has been ambulating in the hallway without any difficulties No problem with food and does not have any urine or bowel bladder Review of Systems Review of Systems: All systems reviewed and are unremarkable except as noted below Physical Exam Physical Exam: Lying in bed without any acute distress Constitutional: well developed, well nourished and + obese; not ill appearing Eyes: PERRL, conjunctivae normal, anicteric sclerae ENMT: external ear and nose normal, oropharynx normal Neck: trachea midline, no thyromegaly Respiratory: no respiratory distress Auscultation: + diminished lung sounds and + crackles (Minimal crackles at the bases) Cardiovascular: Rate/Rhythm: regular rate and regular rhythm; not tachycardic Heart Sounds: normal S1 and normal S2; no murmur Extremities: + edema (Trace edema bilaterally) Gastrointestinal (Abdomen): Inspection/Auscultation: + abdomen distended and normal bowel sounds Percussion/Palpation: abdomen soft and + ascites (Ascites status post paracentesis); abdomen nontender Neurologic: normal touch/pain/proprioception and moves all extremities; no focal motor deficits Psychiatric: A+Ox3, euthymic affect Lymphatic: no cervical or axillary lymphadenopathy Results & Data Results & Data Vital Signs (Past 12 Hours) Vital Signs Temp Pulse Pulse Resp BP Pulse Ox O2 Del Method 10/06/23 11:38 36.8 C 95 H 18 110/72 95 Room Air 10/06/23 08:28 36.6 C 94 H 18 111/72 97 Room Air 10/06/23 06:11 92 H Laboratory Results Short CBC 10/06/23 Range/Units 14:43 WBC 4.38 L (4.8-10.8) K/ul Hgb 10.3 L (14.0-18.0) g/dl Hct 29.9 L (42.0-52.0) % Plt Count 66 L (130-400) K/uL BMP 10/06/23 14:43 Sodium 134 L Potassium 3.6 Chloride 104 Carbon Dioxide 25 BUN 8 Creatinine 0.79 Glucose 136 H Calcium 7.8 L Liver Function 10/06/23 Range/Units 14:43 Total Bilirubin 3.1 H (0.2-1.0) mg/dl AST 46 H (13-39) U/L ALT 17 (7-52) U/L Alkaline Phosphatase 96 (34-104) U/L Albumin 2.2 L (3.4-5.0) gm/dl Medications Administered Current Inpatient Medications Allopurinol ([facility] 300 Mg Tab) [facility] [place] [facility]: 11/04/23 08:59 Last Admin: 10/06/23 08:04 Dose: 300 mg Ascorbic Acid (Ascorbic Acid 500 Mg Tab) 1,000 mg PO QAM [facility] Stop: 11/04/23 08:59 Last Admin: 10/06/23 08:04 Dose: 1,000 mg Atorvastatin Calcium (Atorvastatin 20 Mg Tab) [facility] [place] Stop: 11/04/23 08:59 Last Admin: 10/06/23 08:04 Dose: 20 mg Dextrose (Dextrose 50% 50 Ml Syringe) 25 - 50 ml IV UD PRN; Protocol PRN Reason: Hypoglycemia Protocol Stop: 11/03/23 12:11 Furosemide (Furosemide 20 Mg Tab) 20 mg PO QAM [facility] Stop: 11/03/23 15:14 Last Admin: 10/06/23 08:04 Dose: 20 mg Glucagon (Glucagon For Inj 1 Mg Vial) 1 mg SQ UD PRN; Protocol PRN Reason: Hypoglycemia Protocol Stop: 11/03/23 12:11 Glucose (Glucose 10 Tab/Tube) 4 - 8 tab PO UD PRN; Protocol PRN Reason: Hypoglycemia Treatment Stop: 11/03/23 12:11 Glucose (Glucose 40% Gel 15 Gm Tube) 15 - 30 gm PO UD PRN; Protocol PRN Reason: Hypoglycemia Protocol Stop: 11/03/23 12:11 Sodium Chloride (Nss) 1,000 mls @ 125 mls/hr IV .Q8H [facility] Stop: 11/03/23 06:59 Last Infusion: 10/05/23 12:10 Dose: Infused Ceftriaxone Sodium 2,000 mg/ (Dextrose) 50 mls @ 100 mls/hr IV Q24H [facility]; Protocol Stop: 10/14/23 15:14 Last Admin: 10/06/23 14:42 Dose: 100 mls/hr Insulin Aspart (Insulin Aspart Per Unit Charge) 0 units SC ACHS [facility] Stop: 11/03/23 18:14 Last Admin: 10/06/23 12:51 Dose: 4 units Lactulose (Lactulose Syrup 30 Gm/45 Ml Udp) 30 gm PO TID [facility] Stop: 11/03/23 13:59 Last Admin: 10/06/23 14:42 Dose: 30 gm Miscellaneous (Carbohydrates For Hypoglycemia ) 15 - 30 gm PO UD PRN PRN Reason: Hypoglycemia Protocol Stop: 11/03/23 12:11 Multivitamins (Multivitamin Tab) 1 tab PO QAM [facility] Stop: 11/04/23 08:59 Last Admin: 10/06/23 08:04 Dose: 1 tab Ondansetron HCl (Ondansetron Inj 2 Mg/Ml 2 Ml Vial) 4 mg IV Q4H PRN PRN Reason: Nausea And Vomiting Stop: 11/03/23 10:46 Rifaximin (Rifaximin 550 Mg Tablet) 550 mg PO BID [facility] Stop: 11/03/23 20:59 Last Admin: 10/06/23 08:04 Dose: 550 mg Spironolactone (Spironolactone 25 Mg Tab) 50 mg PO QAM [facility] Stop: 11/03/23 15:14 Last Admin: 10/06/23 08:05 Dose: 50 mg
--- NOTE | 2023-10-07 08:32 | Discharge Summary ---
Date of Service October 07, 2023 Admission HPI Per Admitting Provider This is 58-year-old male with past med history significant for type 2 diabetes, hyperlipidemia, chronic idiopathic gout, hepatic encephalopathy, hypertension, moderate aortic stenosis, liver cirrhosis, diverticulosis of colon, thrombocytopenia who presents with abdominal pain x 1 day. Pt states he has had left sided lower abdominal pain for about 3 weeks, but last night he started having acute right lower quadrant pain rated 7/10, it is constant in nature. Pt was awake around midnight and had eaten 2 clementines, and then afterwards had progressively worsening pain from 12am to 3am. Denies positional changes has helped. The left sided pain is previously resolved with lactulose, and he trialed this last night for the right sided pain but it didn't seem to improve anything with two doses overnight. He has not had any bowel movements today, last was yesterday. He is passing gas today. Pt also is nauseous, dry heaved, but no vomiting. Abdomen is distended moreso today, but has acutally improve per pt report since he got up. Currently he is very thirsty. 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 Pt has been seen recently in [place] for Liver Transplant list on 09/18/23. Most recently had MELD score was 20, and he would make the list when score is 27. Pt is scheduled 6 months later for revaluation. He is also going to have an MRI of the liver as outpatient. Pt has been taking medications as prescribed. Notes he is no longer on diuretic medications, and that omeprazole was stopped during the transplant appointment. Pt ran out of flomax at least a week ago, and needs a refill. Admission Exam Per Admitting Provider Physical Exam: General: awake, alert, no apparent distress, + obesity, white male Head: Normocephalic, atraumatic ENT: PERRL, EOMI, no pharyngeal exudate, mucous membranes appear very dry Chest: Nearly absent breath sounds on LLL, otherwise clear throughout, on room air, no adventitious breath sounds Cardiac: Regular rhythm,+ sinus tach 110s, + loud holosystolic murmur grade III/, no JVD, normal peripheral pulses, good capillary refill Abdominal: NABS x 4 quadrants, soft, +distended, liver border is enlarged, + minimally tender to palpation in LLQ s/p morphine IV, no rebound or guarding Extremities: Normal inspection, no peripheral edema or erythema, calfs nontender to palpation Psych: Normal mood and affect Neuro: AAO x 3, strength intact bilaterally and rated 5/5, no motor deficits, speech is clear, no peripheral sensory deficits Principal Diagnosis Abdominal pain, Wells cirrhosis with ascites, hepatocellular carcinoma, moderate aortic stenosis Discharge Exam Lying in bed without any acute distress Constitutional well developed, well nourished and + obese; not ill appearing Eyes PERRL, conjunctivae normal, anicteric sclerae ENMT external ear and nose normal, oropharynx normal Neck trachea midline, no thyromegaly Respiratory no respiratory distress Auscultation: + diminished lung sounds and + crackles (Minimal crackles at the bases) Cardiovascular Rate/Rhythm: regular rate and regular rhythm; not tachycardic Heart Sounds: normal S1 and normal S2; no murmur Extremities: + edema (Trace edema bilaterally) Gastrointestinal (Abdomen) Inspection/Auscultation: + abdomen distended and normal bowel sounds Percussion/Palpation: abdomen soft and + ascites (Ascites status post paracentesis); abdomen nontender Neurologic normal touch/pain/proprioception and moves all extremities; no focal motor deficits Psychiatric A+Ox3, euthymic affect Lymphatic no cervical or axillary lymphadenopathy Discharge Data Allergies Allergy/AdvReac Type Severity Reaction Status Date / Time aspirin Allergy Intermediate NOSE Verified 08/27/23 11:18 BLEEDS--IF TAKES REGULARLY Consultations 10/04/23 10:30 ED Decision to Admit Stat 10/04/23 10:48 Consult Gastroenterology Routine Ordered Studies 10/04/23 06:50 CT abd pelvis IV con only Stat 10/04/23 10:47 IR paracentesis abd w/img US Stat Hospital Course (1) Abdominal pain: (2) Ascites: (3) Hepatocellular carcinoma: (4) Liver cirrhosis secondary to WELLS: (5) Thrombocytopenia: (6) Diabetes mellitus, type 2: (7) Hyperlipidemia: (8) Gout: (9) Morbid obesity: Abdominal Pain Liver cirrhosis due to WELLS, chronic Hepatocellular carcinoma Elevated lactic acid Sinus Tachycardia - Admitted to med surg with tele - Differential includes worsening cirrhosis, ascites, and possibility of SBP - Lactic acid elevated at 4.5-->3.2 with gentle fluids, pt appears clinically dry - WBC of 5.43, pt has hx of pancytopenia and thrombocytopenia, plt 94 on admission. hgb 13. No needs for transfusion or risk of spontaneous bleeding currently. - AST 60, Total eldon 4.7, INR 1.6, ALT 25, Alk phos 120, albumin 2.4 - CT abdomen reviewed personally showing : 1. Cirrhosis with moderate to large ascites, significantly increased from prior exam. Stigmata of portal hyper tension again noted. 2. Stable right hepatic calcification. Left pleural effusion is moderate in size, nonobstructive nephrolithiasis, under distention of the bladder, extensive varices most prominently seen about the spleen - Will check with radiology re r/o PVT on contrast CT -Patient reports that he was stopped on diuretics after his last hospital stay here, also is off omeprazole - Diagnostic and therapeutic paracentesis ordered, obtain cytology, cell count and then will start empiric antibiotics with ceftriaxone 2 g IV q 24h to treat empirically for if SBP - do not assume this right now. - IV albumin 1.5 mg/kg started with 50 g IV albumin, Plan to give today as day 1 and on day 3 - GI consulted -appreciate input and recommendation - History of recent transplant evaluation on 09/18, planning on discussion with liver transplant team which was to happen last week, pt is to have MRI liver, cardiac clearance, and weight loss of 20-30 lbs - MELD score of 20 today on calculation -Status post 5 L of acetic fluid paracentesis -Gram stain is negative, blood culture is pending, urine culture no growth. And it is transudative -No signs and or symptoms of abdominal infection -Denies any more abdominal pain and or distention -Has been ambulating without any difficulties -He will be discharged home this afternoon on medications as advised by the GI Moderate Aortic Stenosis - Noted on exam, chronic, stable -Status post paracentesis of 5 L and the patient has been feeling much better Left pleural Effusion - As noted above, Pt is on room air, no o2 needs at baseline, monitor DM II - Last a1c of 5.9 on 09/18, pt is on oral hypoglycemic medications, will hold these and use ISS for now - Currently NPO - Chronic, stable and has improved a1c from 6.3 recently HLD - Cont statin therapy, chronic, stable Morbid Obesity - Wt of 130 on 09/18 on outpt epic review, obtain daily weights here - Encourage weight loss and exercise regimen to help meet transplant qualifications as above, goal 20-30 lbs Gout - Chronic, stable, Cont allopurinol DVT ppx: scds Lines: 2 PIV FEN/GI: NPO, gentle maintenece fluids CODE: Full, discussed at bedside Dispo: From home, likely to remain in hospital x 1-2 days Will get PT and OT evaluation and possible discharge tomorrow Discharge this afternoon (10) Sepsis: (11) UTI (urinary tract infection): Total Time Total Time Spent Total Time Spent (In Minutes): 35 minutes Discharge Plan Discharge Items Patient Disposition: Home - Self-Care Reason For Visit: ABDOMINAL PAIN Discharge Diagnosis: Abdominal pain, Wells cirrhosis with ascites, hepatocellular carcinoma, moderate aortic stenosis Condition on Discharge: Good Activity: Resume your previous activity Non-emergency contact: Primary Care Provider Call non-emergency contact if: you have any medication questions and your symptoms worsen Follow-up/Referrals: Stanford Mays MD [Primary Care Provider] - (Date & Time 10/12/2023 3:00 PM Provider Stanford Mays MD Department Family Medicine [facility] ) Diet: Carb Consistent or DM2 and Heart Healthy Addtl Attending Provider Instructions: Please take precautions to avoid falls Take your medications as advised Please give appointment with your healthcare provider Pending Studies at Discharge: No Stand-Alone Forms: My [employer], Smoking Cessation Medications and DC Order Prescriptions: New spironolactone 25 mg Tablet 50 mg PO QAM Qty: 30 0RF furosemide 20 mg Tablet 20 mg PO QAM Qty: 30 0RF Continued metformin 500 mg Tablet 500 mg PO BIDM allopurinol 300 mg Tablet 300 mg PO QAM pioglitazone [Actos] 30 mg Tablet 30 mg PO QAM multivitamin Tablet 1 tab PO QAM atorvastatin 20 mg tablet 20 mg PO QAM glimepiride 1 mg tablet 1 mg PO QAM rifaximin 550 mg tablet 550 mg PO BID Qty: 180 2RF lactulose 20 gram/30 mL solution 45 g PO TID 30 Days Qty: 3000 0RF Rx Instructions: Adjust dose up or down to maintain 3-4 loose BMs per day ascorbic acid (vitamin C) [Vitamin C] 1,000 mg Tablet 1 g PO QAM meloxicam 15 mg Tablet 15 mg PO DAILY PRN (Reason: Pain) mupirocin 2 % Ointment 1 applic EXT TID Qty: 20 0RF tamsulosin 0.4 mg capsule 0 mg PO DAILY Patient Comments: per pt he had 14ds but is now out and has to talk to his doctor Discharge Orders: Discharge Order (Routine); Ordered 10/06/23 Ordered By: Nemo Quintero Admission Data Admit Date/Time: 10/04/23 10:47 Attending Provider: Nemo Quintero Admit Provider: Sophie Echevarria Primary Care Provider: Stanford Mays Other Providers: Stacie Lutz; Jayla Armstrong Other Interventions: Discharge Summary Assessment (RN) Last Done: 10/06/23 17:11
== END 2023-10-06 18:15 | disposition home or self-care (01) | DRG 432 ==
LOC: ED 04:59 → EDINP 10:47 → SUATTDRO 10:47 → 2N 12:11

== ENCOUNTER 2024-02-27 10:46 | Inpatient (IN) ==
--- NOTE | 2024-02-27 10:52 | Emergency Department Note ---
Impression & Plan Acute hepatic encephalopathy, Ascites, Acute hyponatremia, Acute hyperglycemia ED Provider Note NAME: SATISH HUERTA AGE: 58 SEX: M : 1965 ARRIVES VIA: Walk-In INFORMANT: Patient, John Moore PA-C ED PROVIDER(S): Aroldo Cardoso MD CHIEF COMPLAINT: Confusion MEDICAL DECISION MAKING: Patient presents due to concern for confusion. IV was established and blood work is obtained along with ammonia level coags and CT of the head. Patient's blood work shows a normal white count with hemoglobin 11.2 which is chronic and stable. Platelet count is low at 56,000 patient does have a history of thrombocytopenia and liver disease. Patient with a sodium of 126. Urine and serum osmolality and urine electrolytes ordered. Patient does have slightly low calcium at 8.5. Ammonia 262. This is elevated. Bilirubin of 2.4. Patient was ordered a dysphagia screen and a dose of lactulose. I did speak with the inpatient medicine service and the patient was admitted by Dr. Donahue. Patient does not have any evidence of SBP on exam the patient has a normal white count and is afebrile. Discussion w/ other healthcare providers: Dr. Donahue inpatient medicine service Prior /Outside records reviewed: I reviewed a discharge summary from Dr. Quintero from October 07, 2023. Known history of type 2 diabetes hyperlipidemia gout hepatic encephalopathy hypertension aortic stenosis liver cirrhosis and thrombocytopenia have presented with abdominal pain at that time. Differential diagnosis: Infection, dehydration, metabolic abnormality, hypo/hyperglycemia, electrolyte imbalance, anemia, UTI, pneumonia, thyroid dysfunction among others were considered. Diagnostics, as interpreted by me: ECG: Normal sinus rhythm, rate of 65, normal intervals, normal axis no ST elevations. Cardiac monitoring: An order was placed for continuous cardiac monitoring. The monitor shows a rate of 67 with sinus rhythm. Patient was placed on pulse oximetry Medical decision rules: None Imaging studies: I informally interpreted the patient's chest x-ray does not show obvious pneumonia or pneumothorax with formal report to follow. I informally interpreted patient CT head which does not show obvious ICH with formal report to follow HPI: Patient presents to the behest of interventional radiology Maximo Moore PA-C due to concern for confusion. Patient does have a known history of cirrhosis. Patient denies any falls or trauma. Patient is without any chest pain or shortness of breath no fevers. Patient does admit to not taking his lactulose for the last 3 to 4 days. Not falls reported that the patient may have 500 cc of fluid that may be amenable to IR drainage. Patient was reportedly stumbling around in the office and confused. Patient states that he did take his morning medications. Patient denies blood thinner use no cough or fever. PAST MEDICAL HISTORY: See Below PAST SURGICAL HISTORY: See Below SOCIAL HISTORY: See Below HOME MEDICATIONS: See Below ALLERGIES: See Below VITALS: See Below PHYSICAL EXAMINATION: GENERAL: NAD, non-toxic. EYE EXAM: Normal conjunctiva. PERRL, no anisocoria and EOM's grossly intact w/o pain. OROPHARYNX: Moist mucus membranes, grossly normal dentition. NECK: Trachea midline, no stridor. LUNGS: Clear to auscultation. Normal chest wall mechanics. HEART: NSR, no MRG. ABDOMEN: Abdomen soft, non-tender, no masses, no rebound or guarding. BACK: No CVA TTP. SKIN: No rashes and no bruising. UPPER EXTREMITIES: Upper extremities are grossly normal. LOWER EXTREMITIES: Grossly normal, no edema. NEURO EXAM: Awake and alert follows basic commands oriented to person place and birthdate, does not know the year, cranial nerves II-XII grossly intact, slow deliberate speech, moves all 4 extremities. Past Med/Surg History Medical History Dizziness r/t the cirrhosis - using a cane at this time. "if i get up to fast". S/P abdominal paracentesis Ascites Hepatocellular carcinoma possibly carcinogenic - pt unsure if it has been confirmed. 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 Surgical History History of esophagogastroduodenoscopy (EGD) History of colonoscopy Family History Mother History of colonoscopy Brother Family history of diabetes mellitus Brother Family history of diabetes mellitus Grandmother (Paternal) Family history of diabetes mellitus Other No family history of adverse response to anesthesia Social History Smoking Status: Never smoker Tobacco Type: Smokeless Tobacco (Dip or Chew) Second Hand Exposure: No; Do You Dip or Chew Tobacco: Yes; Hx Alcohol Use: No Hx Substance Use: No Preferred Language: Slovak Communication Ability: Effective Nip Wrapper Required: No Beliefs That Will Affect Care: None marital status: Single Current Living Situation: Family Current Living Situation Comment: mom and daughter live with him Feels Safe at Home: Yes Assistive Devices: Cane and Glasses Allergies Allergies Allergy/AdvReac Type Severity Reaction Status Date / Time aspirin Allergy Intermediate NOSE Verified 01/11/24 08:15 BLEEDS--IF TAKES REGULARLY Home Meds Home Medications Medication Instructions Recorded Confirmed allopurinol 300 mg tablet 300 mg PO QAM 06/03/19 02/27/24 metformin 500 mg tablet 0 mg PO BIDM 06/03/19 02/27/24 multivitamin 1 tab PO QAM 06/03/19 02/27/24 pioglitazone 30 mg tablet (Actos) 0 mg PO QAM 06/03/19 02/27/24 atorvastatin 20 mg tablet 0 mg PO QAM 04/21/21 02/27/24 glimepiride 1 mg tablet 0 mg PO QAM 01/13/22 02/27/24 ascorbic acid (vitamin C) 1,000 mg 1 g PO QAM 08/27/23 02/27/24 tablet (Vitamin C) tamsulosin 0.4 mg capsule 0.4 mg PO DAILY 10/04/23 02/27/24 rifaximin 550 mg tablet (Xifaxan) 550 mg PO BID 01/02/24 02/27/24 carvedilol 6.25 mg tablet 6.25 mg PO BID 02/27/24 02/27/24 furosemide 20 mg tablet 40 mg PO QAM 02/27/24 02/27/24 omeprazole 20 mg capsule,delayed 20 mg PO QAM 02/27/24 02/27/24 release spironolactone 25 mg tablet 100 mg PO QAM 02/27/24 02/27/24 Previous Rx's Medication Instructions Recorded lactulose 20 gram/30 mL oral 45 g (67.5 mL) PO TID Cirrhosis 30 03/30/22 solution days #3,000 mL mupirocin 2 % topical ointment 1 applic EXT TID #20 grams 08/29/23 Results & Data (ED) Vital Signs Vital Signs - 24 hr 02/27/24 10:50 02/27/24 10:52 02/27/24 11:00 Temperature 36.9 C Temperature Source Oral Pulse Rate 64 114 H 67 Pulse Rate from SpO2 Sensor 63 67 Respiratory Rate 13 20 13 Respiratory Effort / Characteristics Non-Labored Respiratory Depth Normal Blood Pressure 118/65 Blood Pressure Mean 82 Pulse Oximetry 99 99 100 Oxygen Delivery Method Room Air Oxygen Flow Rate Sepsis Recent Fever Within 48 Hours Yes Sepsis New/Unexplained Change in Mental Status Yes Sepsis Action Taken by Nursing No Action Required 02/27/24 11:05 02/27/24 11:05 02/27/24 11:05 Temperature Temperature Source Pulse Rate 62 Pulse Rate from SpO2 Sensor 64 Respiratory Rate 12 Respiratory Effort / Characteristics Respiratory Depth Blood Pressure 122/60 Blood Pressure Mean 81 Pulse Oximetry 100 100 Oxygen Delivery Method Room Air Oxygen Flow Rate 0 Sepsis Recent Fever Within 48 Hours Sepsis New/Unexplained Change in Mental Status Sepsis Action Taken by Nursing 02/27/24 11:35 02/27/24 12:00 02/27/24 12:00 Temperature Temperature Source Pulse Rate Pulse Rate from SpO2 Sensor 64 Respiratory Rate 21 26 H Respiratory Effort / Characteristics Respiratory Depth Blood Pressure 119/73 Blood Pressure Mean 93 Pulse Oximetry 100 Oxygen Delivery Method Oxygen Flow Rate Sepsis Recent Fever Within 48 Hours Sepsis New/Unexplained Change in Mental Status Sepsis Action Taken by Nursing 02/27/24 12:30 Temperature Temperature Source Pulse Rate 66 Pulse Rate from SpO2 Sensor 67 Respiratory Rate 13 Respiratory Effort / Characteristics Respiratory Depth Blood Pressure Blood Pressure Mean Pulse Oximetry 99 Oxygen Delivery Method Oxygen Flow Rate Sepsis Recent Fever Within 48 Hours Sepsis New/Unexplained Change in Mental Status Sepsis Action Taken by Snf Medications Current Medication List: was personally reviewed by me Laboratory Data Attestation: I reviewed the patient's lab results. 02/27/24 11:00 02/27/24 11:00 Lab Results 02/27/24 02/27/24 Range/Units 11:00 12:18 WBC 5.71 (4.8-10.8) K/ul RBC 3.13 L (4.70-6.10) M/uL Hgb 11.2 L (14.0-18.0) g/dl Hct 32.2 L (42.0-52.0) % MCV 102.9 H (80.0-100.0) fL MCH 35.8 H (25.0-34.0) pg MCHC 34.8 (32.0-36.0) g/dL RDW Std Deviation 57.2 H (36.4-46.3) fL RDW Coeff of [place] 15.3 H (11.5-14.5) % Plt Count 56 L (130-400) K/uL MPV 12.4 (9.4-12.4) fL Immature Gran % (Auto) 0.4 % Neut % (Auto) 65.9 % Lymph % (Auto) 11.4 % [place] % (Auto) 16.3 % Eos % (Auto) 4.6 % Baso % (Auto) 1.4 % Neut # (Auto) 3.77 (1.40-6.50) K/uL Lymph # (Auto) 0.65 L (1.20-3.40) K/uL [place] # (Auto) 0.93 H (0.11-0.59) K/uL Eos # (Auto) 0.26 (0.00-0.50) K/uL Baso # (Auto) 0.08 (0.00-0.20) K/uL Immature Gran # (Auto) 0.02 (0.01-0.20) K/uL PT 15.1 H (9.0-12.0) Seconds INR 1.4 H (0.9-1.1) APTT 32 H (21-31) Seconds PTT Ratio 1.1 Sodium 126 L (136-145) mmol/L Potassium 5.0 (3.5-5.1) mmol/L Chloride 99 (98-107) mmol/L Carbon Dioxide 22 (21-32) mmol/L Anion Gap 5 (3-11) BUN 18 (6-23) mg/dl Creatinine 0.91 (0.6-1.4) mg/dl Est Cr Clr Drug Dosing 107.5 ml/min Est GFR ( Amer) 106.5 ml/min Est GFR (Non-Af Amer) 91.9 ml/min BUN/Creatinine Ratio 19.8 (10-20) Glucose 404 H* (70-99(Fasting)) mg/dl Osmolality 292 (280-300) mOsm/kg Calcium 8.5 L (8.6-10.3) mg/dl Magnesium 1.8 (1.7-2.4) mg/dl Total Bilirubin 2.4 H (0.2-1.0) mg/dl AST 46 H (13-39) U/L ALT 31 (7-52) U/L Alkaline Phosphatase 153 H (34-104) U/L Ammonia 262.0 H (18-72) umol/L Total Protein 6.7 (6.0-8.3) gm/dl Albumin 2.4 L (3.4-5.0) gm/dl Globulin 4.3 H (2.5-4.0) gm/dl Albumin/Globulin Ratio 0.6 L (0.9-2) TSH 2.079 (0.300-4.500) uIu/ml Urine Color Yellow Urine Appearance Clear (Clear) Urine pH 7.5 (4.5-7.5) Ur Specific [place] 1.022 (1.000-1.030) Urine Protein Negative (Negative) Urine Glucose (UA) 3+ H (Negative) Urine Ketones Negative (Negative) Urine Blood Negative (Negative) Urine Nitrite Negative (Negative) Urine Bilirubin Negative (Negative) Urine Urobilinogen Negative (Negative) Ur Leukocyte Esterase Negative (Negative) Urine Osmolality 476 L (500-800) mOsm/kg Urine Sodium 49 mmol/L Urine Potassium 18.1 mmol/L Urine Chloride 34 mmol/L Administered Medications Lactulose (Lactulose 200gm/700ml Wtr Enema) 200 gm IN Q8H [facility] Stop: 03/28/24 13:59 Last Admin: 02/27/24 15:30 Dose: Not Given Documented By: MAKAH Discontinued Medications Furosemide (Furosemide 40 Mg/4 Ml Vial) 40 mg IV ONE ONE Stop: 02/27/24 13:00 Last Admin: 02/27/24 13:25 Dose: 40 mg Documented By: AM Calcium Gluconate () 1,000 mg in 60 mls @ 240 mls/hr IV NOW STA Stop: 02/27/24 12:41 Last Infusion: 02/27/24 13:28 Dose: Infused Documented By: Admin: 02/27/24 12:53 Dose: 240 mls/hr Documented By: AM Insulin Aspart (Insulin Aspart Per Unit Charge) 10 units SC NOW STA Stop: 02/27/24 12:50 Last Admin: 02/27/24 13:25 Dose: 10 units Documented By: MARY Co-signed By: MAKAH Lactulose (Lactulose Syrup 20 Gm/30 Ml Udc) 30 gm PO NOW STA Stop: 02/27/24 12:26 Last Admin: 02/27/24 12:57 Dose: Not Given Documented By: MARY Lactulose (Lactulose Syrup 20 Gm/30 Ml Udc) Confirm Administered Dose 20 gm .ROUTE .STK-MED ONE Stop: 02/27/24 15:27 Last Admin: 02/27/24 15:30 Dose: 30 gm Documented By: MAKAH Imaging Data Radiologist's Impression: Chest X-Ray 02/27/24 10:59 XR chest 1V portable HISTORY: weakness COMPARISON: Chest 10/04/2023. FINDINGS: The heart remains mildly enlarged. No focal lung consolidations to suggest a pneumonia. No evidence for pulmonary edema. There are old, healed right-sided rib fractures again noted. No pleural fusions. No pneumothorax. IMPRESSION: Stable cardiomegaly. Otherwise, no acute process within the chest. ACT 112: Negative or not required by law. Electronically signed by: Huber Alvarado M.D. 02/27/2024 11:[address] 02/27/24 11:00 CT SCAN OF THE BRAIN WITHOUT IV CONTRAST CLINICAL HISTORY: Change in mental status. COMPARISON STUDY: CT of the brain dated 09/09/2023. TECHNIQUE: Unenhanced axial CT scan of the brain is performed from the vertex to the skull base. A dose lowering technique was utilized adhering to the principles of ALARA. CT DOSE: 625.8 mGy.cm FINDINGS: Brain parenchyma: The brain parenchyma is normal in appearance. There is no hemorrhage, mass effect, or evidence of acute territorial ischemia by CT criteria. Moseley-white matter differentiation is preserved. No extra-axial fluid collection is seen. Ventricles, sulci, cisterns: Normal in configuration. Intracranial vasculature: The visualized intracranial vasculature at the skull base is normal in appearance. Calvarium: Unremarkable. Sinuses and mastoids: The visualized paranasal sinuses are clear. The mastoid air cells are well pneumatized. Orbits: The bony orbits are grossly intact. IMPRESSION: There is no hemorrhage, mass effect, or evidence of acute territorial ischemia by CT criteria. ACT 112: Negative or not required by law. Electronically signed by: Ruy Ribeiro M.D. 02/27/2024 11:40 AM Discharge Plan Visit Data Chief Complaint: Illness ED Provider: Aroldo Cardoso Discharge Problem: Acute hepatic encephalopathy, Ascites, Acute hyponatremia, Acute hyperglycemia Patient Disposition: Admitted As Inpatient Discharge Instructions Interventions: ED Discharge Assessment Last Done: 02/27/24 15:44 Discharge Problem: Ascites Qualifiers: Ascites type: other type Qualified Code(s): R18.8 - Other ascites
[2024-02-27 11:21] LABS: Basophils # (auto) 0.08 K/uL (0.00-0.20); Basophils % (auto) 1.4 %; Eosinophils # (auto) 0.26 K/uL (0.00-0.50); Eosinophils % (auto) 4.6 %; Hematocrit (blood only) 32.2 % (42.0-52.0); Hemoglobin 11.2 g/dl (14.0-18.0); Immature Granulocytes # (auto) 0.02 K/uL (0.01-0.20); Immature Granulocytes % (auto) 0.4 %; Lymphocytes # (auto) 0.65 K/uL (1.20-3.40); Lymphocytes % (auto) 11.4 %; Mean Corpuscular Hemoglobin 35.8 pg (25.0-34.0); Mean Corpuscular Hgb Conc 34.8 g/dL (32.0-36.0); Mean Corpuscular Volume 102.9 fL (80.0-100.0); Mean Platelet Volume 12.4 fL (9.4-12.4); Monocytes # (auto) 0.93 K/uL (0.11-0.59); Monocytes % (auto) 16.3 %; Neutrophils # (auto) 3.77 K/uL (1.40-6.50); Neutrophils % (auto) 65.9 %; Platelet Count 56 K/uL (130-400); RDW Coefficient of Variation 15.3 % (11.5-14.5); RDW Standard Deviation 57.2 fL (36.4-46.3); Red Blood Count 3.13 M/uL (4.70-6.10); White Blood Count 5.71 K/ul (4.8-10.8)
--- NOTE | 2024-02-27 11:37 | XRay Report ---
XR chest 1V portable HISTORY: weakness COMPARISON: Chest 10/04/2023. FINDINGS: The heart remains mildly enlarged. No focal lung consolidations to suggest a pneumonia. No evidence for pulmonary edema. There are old, healed right-sided rib fractures again noted. No pleural fusions. No pneumothorax. IMPRESSION: Stable cardiomegaly. Otherwise, no acute process within the chest. ACT 112: Negative or not required by law. Electronically signed by: Huber Alvarado M.D. 02/27/2024 11:35 AM
--- NOTE | 2024-02-27 11:41 | CT Scan Report ---
CT SCAN OF THE BRAIN WITHOUT IV CONTRAST CLINICAL HISTORY: Change in mental status. COMPARISON STUDY: CT of the brain dated 09/09/2023. TECHNIQUE: Unenhanced axial CT scan of the brain is performed from the vertex to the skull base. A d ose lowering technique was utilized adhering to the principles of ALARA. CT DOSE: 625.8 mGy.cm FINDINGS: Brain parenchyma: The brain parenchyma is normal in appearance. There is no hemorrhage, mass effect, or evidence of acute territorial ischemia by CT criteria. Moseley-white matter differentiation is preser farideh. No extra-axial fluid collection is seen. Ventricles, sulci, cisterns: Normal in configuration. Intracranial vasculature: The visualized intracranial vasculature at the skull base is normal in appe arance. Calvarium: Unremarkable. Sinuses and mastoids: The visualized paranasal sinuses are clear. The mastoid air cells are well pneu matized. Orbits: The bony orbits are grossly intact. IMPRESSION: There is no hemorrhage, mass effect, or evidence of acute territorial ischemia by CT isabelle lima. ACT 112: Negative or not required by law. Electronically signed by: Ruy Ribeiro M.D. 02/27/2024 11:40 AM
[2024-02-27 11:49] LABS: Albumin Globulin Ratio 0.6 (0.9-2); Albumin Level 2.4 gm/dl (3.4-5.0); BUN Creatinine Ratio 19.8 (10-20); Bilirubin,Total 2.4 mg/dl (0.2-1.0); Calcium 8.5 mg/dl (8.6-10.3); Creatinine Clr Calc Pharmacy 107.5 ml/min; Est GFR (African American) 106.5 ml/min; Est GFR (Non-African American) 91.9 ml/min; Globulin 4.3 gm/dl (2.5-4.0); Magnesium 1.8 mg/dl (1.7-2.4); Total Protein 6.7 gm/dl (6.0-8.3)
[2024-02-27 11:55] LABS: INR 1.4 (0.9-1.1); Partial Thromboplastin Ratio 1.1; Partial Thromboplastin Time 32 Seconds (21-31); Prothrombin Time 15.1 Seconds (9.0-12.0); Thyroid Stimulating Hormone 2.079 uIu/ml (0.300-4.500)
[2024-02-27 12:33] LABS: Appearance Urine Clear (Clear); Bilirubin Urine Negative (Negative); Blood Urine Negative (Negative); Color Urine Yellow; Glucose Urine UA 3+ (Negative); Ketones Urine Negative (Negative); Leukocyte Esterase Urine Negative (Negative); Nitrite Urine Negative (Negative); Protein Urine Negative (Negative); Specific Gravity Urine 1.022 (1.000-1.030); Urobilinogen Urine Negative (Negative); pH Urine 7.5 (4.5-7.5)
--- NOTE | 2024-02-27 12:48 | History & Physical Report ---
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 Spencer is a 58-year-old male with past med history significant for type 2 diabetes, hyperlipidemia, chronic idiopathic gout, hepatic encephalopathy, hypertension, moderate aortic stenosis,GONZALES cirrhosis, heptocellular carcinoma s/p embolization, diverticulosis of colon, thrombocytopenia who is admitted for decompensated cirrhosis marked by hepatic encephalopathy. Patient awake and oriented to self. No able to take PO. Plan to trial with lactulose enema and consult GI for further recommendations. Decompensation iso medication noncompliance. Low suspicion for infection: UA unremarkable, no WBC, no localizing features. Ammonia 262 #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, decompensated #Hepatocellular Carcinoma s/p embolization of RHL on 08/02/2023 - History of decompensation: yes - MELD-Na: 19 on admission (sodium corrected for hyperglycemia 131) - Last EGD 07/04/2023: no EV - Last colonoscopy: 12/2023 normal, internal hemorrhoids, repeat 2028 2/2 family hx -Coagulopathy: Platelets 56, baseline routine 60-70, largely variable INR 1.4 - Portal hypertension: gastropathy, splenomegaly - PSE: evidence of HE on exam, c/w lactulose enema q8h until able to take PO (titrated to 3-4BM / day) or lactulose 30mg QID if tolerating/safe for p -Resume Rifaximin 550 BID when able to tolerate PO - Ascites: home Lasix:Lester 40:100, hold while NPO -IV lasix 40mg now -At scheduled IR appointment 02/26, < 500cc, small ascites - SBP: No evidence of SBP (PMNs <200 with routine para, last 02/09/24) - EV: No evidence of GIB presently, close monitoring -Stable anemia - on omeprazole 20mg for PPx at home, will continue pantoprazole while inpatient, IV daily->PO when able - HRS: Cr at baseline (0.8-1.1), no signs of HRS - Daily CMP + INR to calculate MELD; NPO while encephalopathic - GI consult # Chronic Macrocytic Anemia #Acute on Chronic Thrombocytopenia -B12 historically notably elevated iso cirrhosis, folate 17 in 07/2023 Platelets historically 60-70s, repeat CBC -Low threshold to hold heparin dvt if less than <50 -likely exacerbated iso encephalopathy Will repeat b12, folate, and iron labs -Trend labs #Portal Hypertensive Gastropathy -Continue PPI (home omperazole 20mg) : 40mg Protonix while inpatient #gout -Hold allopurinol, resume when able #hyperglycemia #Diabetes Mellitus TypeII no sign of DKA Hold home metformin, pioglitazone, glimepiride Insulin sliding scale POC q6 hours while npo, hypoglycemia protocol We will follow blood sugars and HbA1c levels #Hypertension #Moderate aortic stenosis Monitor for volume overload -Hold lisinopril and coreg while NPO Resume when able Normotensive as of now, will add prn labetalol for SBP > 180 #Hyponatremia Sodium 129, corrected to 131 iso hyperglycemia Follow labs in a.m. #Hx of LUTs/retention -Resume tamsulosin when able DVT heparin q12, monitor platelets Admit PCU/tele NPO 2/2 encephalopathy Will need to review/confirm home meds upon return of approriate mentation Admission and Anticipated Discharge Date Admission Date: Time spent evaluating patient, direct bedside care, chart review, placing orders, interpretation of diagnostic studies, discussion with consultants, patient, and family members, as well as other required patient management activities is 60 minutes. History of Present Illness Chief Complaint: [facility] Primary Care Provider: Krystian Palomo MD Mr. Spencer is a 58-year-old male with past med history significant for type 2 diabetes, hyperlipidemia, chronic idiopathic gout, hepatic encephalopathy, hypertension, moderate aortic stenosis,GONZALES cirrhosis, hepatocellular carcinoma s/p embolization, diverticulosis of colon, thrombocytopenia who [facility]. Spoke to his brother Cory who states he has been taking his lactulose, but endorses not using the bathroom as much as he should--also noting he isn't tolerating the taste as much. Brother states that he has been fine the last time he spoke to the patient, roughly a day prior. Labs with k 5, glucose 404, stable renal function, t bili 2.4, ammonia 262 In the ED, vitals were notable for BP of 110s-120s, HR of 60s and O2 sat of high 90s on room air Imaging revealed normal CT head, abd us estimated at less than 500 mL, CXR stable EKG reviewed, SDR, elevated t waves ED interventions: ca gluconate Additional interventionts: initially not clear for PO, attempted Lactulose enema, but able to take 20mg Laculose; 10 U aspart, lasix 40 Patient to be admitted to pcu/tele. for further evaluation and management of decompensated cirrhosis w/ hepatic encephalopathy Allergies Allergy/AdvReac Type Severity Reaction Status Date / Time aspirin Allergy Intermediate NOSE Verified 01/11/24 08:15 BLEEDS--IF TAKES REGULARLY Home Medications Medication Instructions Recorded Confirmed Type allopurinol 300 mg tablet 300 mg PO QAM 06/03/19 02/27/24 History metformin 500 mg tablet 0 mg PO BIDM 06/03/19 02/27/24 History multivitamin 1 tab PO QAM 06/03/19 02/27/24 History pioglitazone 30 mg tablet (Actos) 0 mg PO QAM 06/03/19 02/27/24 History atorvastatin 20 mg tablet 0 mg PO QAM 04/21/21 02/27/24 History glimepiride 1 mg tablet 0 mg PO QAM 01/13/22 02/27/24 History lactulose 20 gram/30 mL oral 45 g (67.5 mL) PO TID Cirrhosis 30 03/30/22 02/27/24 Rx solution days #3,000 mL ascorbic acid (vitamin C) 1,000 mg 1 g PO QAM 08/27/23 02/27/24 History tablet (Vitamin C) mupirocin 2 % topical ointment 1 applic EXT TID #20 grams 08/29/23 02/27/24 Rx tamsulosin 0.4 mg capsule 0.4 mg PO DAILY 10/04/23 02/27/24 History rifaximin 550 mg tablet (Xifaxan) 550 mg PO BID 01/02/24 02/27/24 History carvedilol 6.25 mg tablet 6.25 mg PO BID 02/27/24 02/27/24 History furosemide 20 mg tablet 40 mg PO QAM 02/27/24 02/27/24 History omeprazole 20 mg capsule,delayed 20 mg PO QAM 02/27/24 02/27/24 History release spironolactone 25 mg tablet 100 mg PO QAM 02/27/24 02/27/24 History Past Med/Surg History Medical History Dizziness r/t the cirrhosis - using a cane at this time. "if i get up to fast". S/P abdominal paracentesis Ascites Hepatocellular carcinoma possibly carcinogenic - pt unsure if it has been confirmed. 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 Surgical History History of esophagogastroduodenoscopy (EGD) History of colonoscopy Family History Mother History of colonoscopy Brother Family history of diabetes mellitus Brother Family history of diabetes mellitus Grandmother (Paternal) Family history of diabetes mellitus Other No family history of adverse response to anesthesia Social History Smoking Status: Never smoker Tobacco Type: Cigarettes and Smokeless Tobacco (Dip or Chew) Second Hand Exposure: No; Do You Dip or Chew Tobacco: No (quit ~2004); Hx Alcohol Use: No Hx Substance Use: No Preferred Language: Moroccan Communication Ability: Effective Millinery Designer Required: No Beliefs That Will Affect Care: None marital status: Single Current Living Situation: Alone Current Living Situation Comment: mom and daughter live with him Feels Safe at Home: Yes Assistive Devices: Cane Review of Systems Review of Systems: Unobtainable due to reduced consciousness Physical Exam Physical Exam: GENERAL APPEARANCE: AxO1 , chronically ill, but pleasantly encephalopathic HEENT: NC, AT. MMM. EOMI, clear conjunctiva, oropharynx clear. no jaundice NECK: Supple without lymphadenopathy. No stiffness or restricted ROM. HEART: Normal rate and regular rhythm, normal S1/S1, no m/r/g LUNGS: CTAB, moving air well. No crackles or wheezes are heard. maintaining airway ABDOMEN: Soft, nontender, nondistended, no guarding, slight fluid shift EXTREMITIES: Without cyanosis, clubbing, trace edema BLE NEUROLOGICAL: Grossly nonfocal. Alert and oriented, moving all 4 extremities. CN not formally tested but appear grossly intact. doesn't answer questions appropriately, smiles and goes to sleep, Skin: Warm and dry without any rash. Results & Data Results & Data Vital Signs (Past 12 Hours) Vital Signs Temp Pulse Resp BP Pulse Ox O2 Del Method O2 Flow Rate 02/27/24 11:05 62 12 100 02/27/24 11:05 122/60 02/27/24 11:05 100 Room Air 0 02/27/24 11:00 67 13 100 02/27/24 10:52 36.9 C 114 H 20 118/65 99 Room Air 02/27/24 10:50 64 13 99 Laboratory Results Short CBC 02/27/24 Range/Units 11:00 WBC 5.71 (4.8-10.8) K/ul Hgb 11.2 L (14.0-18.0) g/dl Hct 32.2 L (42.0-52.0) % Plt Count 56 L (130-400) K/uL BMP 02/27/24 11:00 Sodium 126 L Potassium 5.0 Chloride 99 Carbon Dioxide 22 BUN 18 Creatinine 0.91 Glucose 404 H* Calcium 8.5 L Liver Function 02/27/24 Range/Units 11:00 Total Bilirubin 2.4 H (0.2-1.0) mg/dl AST 46 H (13-39) U/L ALT 31 (7-52) U/L Alkaline Phosphatase 153 H (34-104) U/L Albumin 2.4 L (3.4-5.0) gm/dl Urine 02/27/24 Range/Units 12:18 Urine Color Yellow Urine Appearance Clear (Clear) Urine pH 7.5 (4.5-7.5) Ur Specific [place] 1.022 (1.000-1.030) Urine Protein Negative (Negative) Urine Glucose (UA) 3+ H (Negative) Diagnostic Findings Chest X-Ray 02/27/24 10:59 XR chest 1V portable HISTORY: weakness COMPARISON: Chest 10/04/2023. FINDINGS: The heart remains mildly enlarged. No focal lung consolidations to suggest a pneumonia. No evidence for pulmonary edema. There are old, healed right-sided rib fractures again noted. No pleural fusions. No pneumothorax. IMPRESSION: Stable cardiomegaly. Otherwise, no acute process within the chest. ACT 112: Negative or not required by law. Electronically signed by: Huber Alvarado M.D. 02/27/2024 11:[address] 02/27/24 11:00 CT SCAN OF THE BRAIN WITHOUT IV CONTRAST CLINICAL HISTORY: Change in mental status. COMPARISON STUDY: CT of the brain dated 09/09/2023. TECHNIQUE: Unenhanced axial CT scan of the brain is performed from the vertex to the skull base. A dose lowering technique was utilized adhering to the principles of ALARA. CT DOSE: 625.8 mGy.cm FINDINGS: Brain parenchyma: The brain parenchyma is normal in appearance. There is no hemorrhage, mass effect, or evidence of acute territorial ischemia by CT criteria. Moseley-white matter differentiation is preserved. No extra-axial fluid collection is seen. Ventricles, sulci, cisterns: Normal in configuration. Intracranial vasculature: The visualized intracranial vasculature at the skull base is normal in appearance. Calvarium: Unremarkable. Sinuses and mastoids: The visualized paranasal sinuses are clear. The mastoid air cells are well pneumatized. Orbits: The bony orbits are grossly intact. IMPRESSION: There is no hemorrhage, mass effect, or evidence of acute territorial ischemia by CT criteria. ACT 112: Negative or not required by law. Electronically signed by: Ruy Ribeiro M.D. 02/27/2024 11:40 AM Medications Administered Home Medications Medication Instructions Recorded Confirmed Last Taken allopurinol 300 mg tablet 300 mg PO QAM 06/03/19 02/27/24 01/10/24 metformin 500 mg tablet 0 mg PO BIDM 06/03/19 02/27/24 01/10/24 multivitamin 1 tab PO QAM 06/03/19 02/27/24 01/10/24 pioglitazone 30 mg tablet (Actos) 0 mg PO QAM 06/03/19 02/27/24 10/04/23 atorvastatin 20 mg tablet 0 mg PO QAM 04/21/21 02/27/24 01/10/24 glimepiride 1 mg tablet 0 mg PO QAM 01/13/22 02/27/24 01/10/24 lactulose 20 gram/30 mL oral 45 g (67.5 mL) PO TID 03/30/22 02/27/24 01/10/24 solution days #3,000 mL ascorbic acid (vitamin C) 1,000 mg 1 g PO QAM 08/27/23 02/27/24 01/10/24 tablet (Vitamin C) mupirocin 2 % topical ointment 1 applic EXT TID #20 grams 08/29/23 02/27/24 10/04/23 tamsulosin 0.4 mg capsule 0.4 mg PO DAILY 10/04/23 02/27/24 Unknown rifaximin 550 mg tablet (Xifaxan) 550 mg PO BID 01/02/24 02/27/24 Unknown carvedilol 6.25 mg tablet 6.25 mg PO BID 02/27/24 02/27/24 Unknown furosemide 20 mg tablet 40 mg PO QA 02/27/24 02/27/24 Unknown omeprazole 20 mg capsule,delayed 20 mg PO QA 02/27/24 02/27/24 Unknown release spironolactone 25 mg tablet 100 mg PO QA 02/27/24 02/27/24 Unknown
[2024-02-27] MEDS: CALCIUM GLUCONATE 1,000 MG/60 ML BAG IV STA (12:53)
[2024-02-27] MEDS: LACTULOSE SYRUP 20 GM/30 ML UDC PO STA (12:57)
[2024-02-27] MEDS ORDERED: CARBOHYDRATES FOR HYPOGLYCEMIA PO PRN (13:23)
[2024-02-27] MEDS ORDERED: GLUCOSE 10 TAB/TUBE PO PRN (13:23)
[2024-02-27] MEDS ORDERED: GLUCAGON FOR INJ 1 MG VIAL SQ PRN (13:23)
[2024-02-27] MEDS ORDERED: GLUCOSE 40% GEL 15 GM TUBE PO PRN (13:23)
[2024-02-27] MEDS ORDERED: DEXTROSE 50% 50 ML SYRINGE IV PRN (13:23)
[2024-02-27] MEDS: FUROSEMIDE 40 MG/4 ML VIAL IV ONE (13:25)
[2024-02-27] MEDS: INSULIN ASPART PER UNIT CHARGE SC STA (13:25)
[2024-02-27 13:52] LABS: Urine Potassium 18.1 mmol/L
[2024-02-27] MEDS: LACTULOSE SYRUP 20 GM/30 ML UDC ONE (15:30)
[2024-02-27] MEDS: LACTULOSE 200GM/700ML WTR ENEMA PR SCH (15:30)
--- NOTE | 2024-02-27 16:12 | Electrocardiogram Report ---
Test Reason : Blood Pressure : / mmHG Vent. Rate : 065 BPM Atrial Rate : 065 BPM P-R Int : 160 ms QRS Dur : 084 ms QT Int : 438 ms P-R-T Axes : 054 027 043 degrees QTc Int : 455 ms Normal sinus rhythm Normal ECG When compared with ECG of 04-OCT-2023 05:30, Vent. rate has decreased BY 39 BPM Nonspecific T wave abnormality no longer evident in Inferior leads T wave amplitude has increased in Lateral leads QT has shortened Confirmed by Alvaro Rock ([id number]) on 02/27/2024 4:12:18 PM Referred By: Confirmed By:Alvaro Rock
[2024-02-27] MEDS: INSULIN ASPART PER UNIT CHARGE SC SCH (18:09)
[2024-02-27] MEDS: LACTULOSE SYRUP 30 GM/45 ML UDP PO SCH (18:24)
[2024-02-27] MEDS: TAMSULOSIN HCL 0.4 MG CAP PO SCH (18:24)
[2024-02-27] MEDS: PANTOprazole 40 MG in SYRINGE 0 ML IV SCH (18:26)
[2024-02-27] MEDS ORDERED: PHARMACY GLYCEMIC MGMT CONSULT PRN (20:35)
--- NOTE | 2024-02-27 20:56 | Pharmacy Report ---
Pharmacy Glycemic Short Note 2 - Date of Service February 27, 2024 - Glycemic Short BSG Results (Last 24 hours): 02/27/24 02/27/24 02/27/24 11:00 13:17 16:02 Glucose 404 H* POC Glucose 318 H* 278 H 02/27/24 17:58 Glucose POC Glucose 226 H OUTPATIENT ANTIDIABETIC REGIMEN: * Metformin 500 mg PO BIDM * Glimepiride 1 mg PO AM * Pioglitazone 30 mg PO AM * HbA1c pending (most recent was 7% on 01/05/24) ASSESSMENT: * 58 yo M admitted on 02/27/24 secondary to metabolic encephalopathy. Pharmacy has been consulted to assist with inpatient glycemic management. Patient is a Type 2 diabetic as an outpatient. Please refer to outpatient regimen and most recent HbA1c above. * Patient is currently NPO. BSGs have been elevated: 318-278-226 mg/dL. Received 10 units of bolus insulin around 1300 and another 3 units around 1600. * Will tighten goal range from 110-180 mg/dL to 110-140 mg/dL to provide more coverage. Bolus regimen started by provider based on weight/stress of 2 so wi ll tighten to 3. Changing accuchecks to every 4 hours for now while NPO. * Believe patient may require a small basal dose tonight despite being NPO. This will also provide coverage for tomorrow should the patient be ordered a diet and start eating. Will give 10 units (0.09 units/kg) x 1 dose tonight. PLAN FOR INPATIENT GLYCEMIC CONTROL: * Hold outpatient oral diabetes medications * Basal insulin * Lantus 10 units SC x 1 * Bolus insulin * NovoLog per scale ACHS or Q6hrs while NPO * Goal Range: Low 110 mg/dL - High 140 mg/dL * Correction Factor: 15 mg/dL/unit * Nutritional / Prandial insulin per carb ratio of 1 unit per 5 grams CHO consumed
[2024-02-27] MEDS ORDERED: LANTUS PER UNIT CHARGE SC ONE (21:00)
[2024-02-27] MEDS: HEPARIN SOD 5,000 UNIT/0.5 ML VIAL SQ SCH (21:03)
[2024-02-27] MEDS: rifAXIMin 550 MG TABLET PO SCH (21:04)
[2024-02-28] MEDS: INSULIN ASPART PER UNIT CHARGE SC SCH ×4 (00:38→18:19)
[2024-02-28] MEDS: LANTUS PER UNIT CHARGE SC ONE (00:39)
--- OUTSIDE RECORDS SUMMARY | 2024-02-28 05:05 | External Medical Summary | Summary of Care ---
Author Name Unknown Organization [facility] Address [address] [place] [address] Phone [phone] Care Team Providers Care Test Designer Name Role Phone Krystian Palomo MD Primary Care Provide r Reason for Visit * Reason Onset Date Comments Test Results 02/16/2024 Unexpected or In determinate Result Encounter Details Date Type Department Care Team (Late st Contact Info) Description 02/16/2024 Telephone Radiology [address] 132 [facility] [place] [address] Amrit Magaña MD [address] [place] [address] Test Results (Unexpected or Indeterminate ... Allergies Active Allergy Reactions Criticality Noted Date Comments Aspirin 01/28/2022 Other reaction(s): bloody nose Salicylates 08/08/2001 nose bleeds documented as of this encounter (statuses as of 02/22/2024) Medications Medication Sig Dispensed Refills Start Date End Date Status Multivitamin Adult Oral Tablet daily . 0 10/12/2021 Active Vitamin C 1000 MG Oral Tablet daily . 0 10/12/2021 Active metFORMIN HCl 500 MG Oral Tablet (Glucophage)Indicati ons:Type 2 diabetes mellitus with hemoglobin A1c goal of less than 7.0% (HCC) TAKE ONE TABLET BY MOUTH TWICE DAILY WITH MORNING AND EVENING MEALS 180 Tablet 3 05/31/2022 Active Lactulose 10 GM/15ML Oral Solution (Constulose)Indicati ons:Hepatic encephalopathy (HCC) TAKE 45ML THREE TIMES DAILY,IN THE MORNING, AT NOON, AND BEDFORE BEDTIME 4050 mL 5 11/07/2022 Active Glimepiride 1 MG Oral Tablet (Amaryl) TAKE ONE TABLET BY MOUTH EVERY DAY WITH THE FIRST MAIN MEAL OF THE DAY FOR DIABETES 90 Tablet 1 11/28/2022 Active Atorvastatin Calcium 20 MG Oral Tablet (Lipitor)Indications :Hyperlipidemia with target LDL less than 100 Take 1 Tablet by mouth in the morning. 90 Tablet 1 07/11/2023 Active Omeprazole 20 MG Oral Capsule Delayed Release (PriLOSEC)Indication s:GERD (gastroesophageal reflux disease) Take 1 Capsule by mouth in the morning. 1 hour before the first meal of the day. 90 Capsule 3 07/17/2023 Active Mupirocin 2 % External Ointment (Bactroban) Apply topically to affected area 3 times a day. At hospital discharge 0 08/29/2023 Active Tamsulosin HCl 0.4 MG Oral Capsule (Flomax)Indications: Urinary retention One daily 30 Capsule 5 10/24/2023 Active Lisinopril 5 MG Oral Tablet (Prinivil) Take 1 Tablet by mouth in the morning. In the morning.. 0 10/26/2023 Active Albumin Human 25 % Intravenous Solution Give 50Gms after paracentesis (if more than 5L are removed). May run at 100/hr. 100 mL 0 11/09/2023 Active Furosemide 40 MG Oral Tablet (Lasix) Take 1 Tablet by mouth in the morning. 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 30 Tablet 5 01/23/2024 Active Albuminex 25 % Intravenous Solution (Albumin Human-kjda)Indicatio ns:Cirrhosis of liver with ascites, unspecified hepatic cirrhosis type (HCC) If paracentesis yields a total volume of more than 3 liters of fluid give 25% albumin as follows: 3 L - 5 L - Give 1 unit albumin (25 gm in 100 ml) 5 L - 7.5 L - Give 2 units albumin (25 gm in 100 ml x 2) 7.5 L - 12 L - Give 3 units albumin 100 mL 10 01/24/2024 Active documented as of this encounter (statuses as of 02/22/2024) Active Problems Problem Noted Date Diagnosed Date BPH without obstruction/lower urinary tract symp toms 12/22/2023 BMI 36.0-36.9,adult 10/24/2023 Overview: 266 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 07/05/2023 Hepatic encephalopathy 03/28/2022 Overview: admitted [facility], ammonia 110 Aortic stenosis, moderate 01/21/2022 Thrombocytopenia [...] as of this encounter (statuses as of 02/22/2024) Resolved Problems Problem Noted Date Diagnosed Date [...] as of this encounter (statuses as of 02/22/2024) Immunizations Name Administration Dates Next Due COVID-19 mRNA, LNP-s, No Pre serve, 2-Dose Series (Moderna) 03/08/2021,02/23/2021 COVID-19, mRNA, LNP-s, PF, B ooster, 100mcg/0.5mg (Moderna) 10/18/2021 H1N1 2009 Influenza, IM 09/13/2009 HEP A - Hepatitis A (Adult > 18 yrs) 12/06/2023, 06/06/2023 Hepatitis B, 20+ yrs 12/06/2023,07/05/20 23,06/06/2023,12/16,07/16/2021,06/15/2021,08/30/2004 ,07/30/2004,02/28/2004 Pneumococcal Polysaccharide PPV23 (Pneumovax) 12/24/2013 Season Influenza, Quad, PF, Adjuvanted, 65+ Yrs, IM (FLUAD) 07/30/2021 Seasonal Influenza, PF, 6 M & above, IM , (FluLaval or Fluzone) 07/30/2020,08/08/2018 Seasonal Influenza, Quadriva lent, No Preserve, IM [...] encounter Miscellaneous Notes * Telephone Encounter - Erlinda Celis TECH - 02/16/2024 1:55 PM EDT Hello- The radiologist discovered an unexpected or indeterminate finding on Lloyd Spencer ([id number]) and asks that you review the following report. Study Type: MRI LIVER W WO CONTRAST Date of Study: 02/16/2024 IMPRESSION Motion limited study. 1. Treatment cavity measuring 2.8 cm in hepatic segment 7, with peripheral arterial enhancement. The enhancing component appears to have an irregular contour, although this may be due to motion artifact. LR-TR Equivocal 2. Increased size of a 2 cm observation in hepatic segment 5 with arterial hyperenhancement, contrast washout, and capsule formation. LI-RADS 5 3. Cirrhotic liver with evidence of portal hypertension; manifested by splenomegaly, varices, and adecreased small volume of ascites. 4. New 5 mm cystic lesion in the pancreatic body, which likely represents a side branch intraductalpapillary mucinous neoplasm. Additional 3-4 mm cystic lesions in the head and body are stable. A follow-up contrast enhanced MRI/MRCP of the abdomen is recommended in 1 year. Please respond to this encounter to acknowledge receipt of this message and take responsibility to ensure this report is reviewed. Thank you, TRINI Herrera Client Service Rep Diagnostic Medicine [place] documented in this encounter Plan of Treatment Upcoming Encounters Date Type Department Care Team (Latest Contact Info) Description 02/28/2024 8:30 AM EDT Imaging [facility] 2nd Floor Cardiology, [place] 132 [facility] [place] [address] Gw, Excess Time Radiology 132 [facility] [place] [address] 06/11/2024 9:00 AM EDT Office Visit Gastroenterology , [facility] 132 [facility] [place] [address] Ren Pineda CRNP 132 [facility] [place] [address] 06/24/2024 8:20 AM EDT Office Visit Family Medicine [address] [place] [phone] Krystian Palomo MD [address] [place] [address] [place] [address] 07/03/2024 1:30 PM EDT Hospital Encounter ENDO [facility], Endoscopy Room [facility] 132 [facility] [place] [phone] Jayla Armstrong MD [address] [place] [address] 07/03/2024 1:30 PM EDT - 07/03/2024 2:00 PM EDT Surgery ENDO [facility], Endoscopy Room [facility] [address] [place] [phone] Jayla Armstrong MD [address] [place] [id number] ESOPHAGOGASTRODUODENOSCOPY (EGD), FLEXIBLE, TRANSORAL, DIAGNOSTIC Scheduled Procedures Name Priority Associated Diagnoses Date/Ti me ESOPHAGOGASTRODUODENOSCOPY ( EGD), FLEXIBLE, TRANSORAL, DIAGNOSTIC Rios's esophagus 07/03/2024 1:30 PM EDT COLONOSCOPY FLEXIBLE PROXIMA L DIAGNOSTIC Recall Family history of colon cancer Health Maintenance Due Date Last Done Comments Zoster Vaccines (1 of 2) 2014 Pneumococcal Vaccine: Pediatrics (0 to 5 Years) and At-Risk Patients (6 to 64 Years) (2 of 2 - PCV) 12/24/2014 12/24/2013 Depression Screening 05/21/2021 05/21/2020 DTaP,Tdap,and Td Vaccines (2 - Td or Tdap) 07/13/2021 07/13/2011, 10/30/2004 COVID-19 Vaccine (4 - season) 2023 10/18/2021, 03/08/2021, 02/23/2021 Albumin/Creatinine Ratio 12/06/2023 023, 11/03/2021, 04/29/2021, Additional history exists B-12 12/06/2023 12/06/2022, 12/29, 11/24/2020, Additional history exists Diabetic Foot Exam 06/21/2024 06/21/2023, 0 07/06/2022, 04/29/2021, Additional history exists HbA1c 07/07/2024 01/05/2024, 08/31, 06/21/2023, Additional history exists Diabetic Eye Exam 09/20/2024 09/20/2023, , 03/16/2021, Additional history exists GFR 02/07/2025 02/08/2024, 12/29, 11/21/2023, Additional history exists Lipid Panel 09/18/2028 09/18/2023, 05/31, 03/09/2022, Additional history exists COLONOSCOPY-EVERY 5 YRS AGES 18-100 01/10/2029 01/11/2024, 06/07/2019, 05/21/2010 Influenza Vaccine (FLU shot) Completed 10/2022, 06/30/2022, 07/30/2021, Additional history exists Hepatitis B Completed 12/06/2023, 03/2023, 06/06/2023, Additional history exists GARDASIL-HPV IMMUNIZATION SERIES Aged Out No longer eligible based on patient's age to complete this topic MENINGOCOCCAL (MENACTRA/MENVEO) Aged Out No longer eligible based on patient's age to complete this topic documented as of this encounter Medical Devices Implanted Type Area Tour Manager Device Identifier Shelf Expiration Date Model / Serial / Lot Lipiodol Injection - [id number] Implanted:Qty: 1 on 08/02/2023 at [facility] [employer] 04/28/2026 [id number] Syr Pf 2ml Embospheres 100-300 - [id number] Implanted:Qty: 1 on 08/02/2023 at [facility] [employer] [id number] 02/26/2026 [facility] / / [id number] documented as of this encounter Care Teams Test Designer Relationship Specialty Start Date End Date Krystian Palomo MD [address] [place] [address] [place] [address] PCP - General Family Medicine 12/22/23 documented as of this encounter
--- OUTSIDE RECORDS SUMMARY | 2024-02-28 05:05 | External Medical Summary | Summary of Care ---
Author Name Unknown Organization [facility] Address [address] [place] [address] Phone [phone] Care Team Providers Care [employer] Volleyball Coach Name Role Phone Krystian Palomo MD Primary Care Provide r Reason for Visit * Reason Onset Date Comments Insurance 01/22/2024 Encounter Details Date Type Department Care Team (Late st Contact Info) Description 01/22/2024 Telephone Access Center, [place] [address] [facility] *DO NOT REMOVE THIS DEPARTMENT* [place] [address] Services, Scheduling [address] [place] [address] Insurance Allergies Active Allergy Reactions Criticality Noted Date Comments Aspirin 01/28/2022 Other reaction(s): bloody nose Salicylates 08/08/2001 nose bleeds documented as of this encounter (statuses as of 02/26/2024) Medications Medication Sig Dispensed Refills Start Date [...] AT BEDTIME 60 Tablet 12 11/24/2023 Active documented as of this encounter (statuses as of 02/26/2024) Active Problems Problem Noted Date Diagnosed Date BPH without obstruction/lower urinary tract symp toms 12/22/2023 BMI 36.0-36.9,adult 10/24/2023 Overview: 266 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 * Telephone Encounter - Almaz Christopher OSA - 02/26/2024 10:12 AM EDT See below unsure what to do with this patient * Telephone Encounter - Genevieve Vidales OSA - 01/22/2024 9:48 AM EDT Patient is calling today looking for updated documentation for work and insurance. He needs the 30 day reminder as well. Patient is unclear as to what has been done. Insurance told him they have recceived nothing. Please call patient [phone] documented in this encounter Plan of Treatment Upcoming Encounters Date Type Department Care Team (Latest Contact Info) Description 4 8:30 AM EDT Imaging [facility] [address] [place] [address] Gw, Excess Time Radiology [address] [place] [address] 4 1:30 PM EDT Telemedicine Radiology, [place] [address] [place] [address] Amrit Magaña MD [address] [place] [address] 4 9:00 AM EDT Office Visit Gastroenterolog y, [facility] [address] [place] [address] Ren Pindea CRNP [address] [place] [address] 4 8:20 AM EDT Office Visit Family Medicine [address] [place] [phone] Krystian Palomo MD [address] [place] [address] [place] [address] 4 1:30 PM EDT Hospital Encounter ENDO [facility], Endoscopy Room [facility] [address] [place] [phone] Jayla Armstrong MD [address] [place] [address] 4 1:30 PM EDT - 4 2:00 PM EDT Surgery ENDO [facility], Endoscopy Room [facility] [address] [place] [phone] Jayla Armstrong MD [address] [place] [address] ESOPHAGOGASTRODUODENOSCOPY (EGD), FLEXIBLE, TRANSORAL, DIAGNOSTIC Scheduled Procedures Name Priority Associated Diagnoses Date/Ti me ESOPHAGOGASTRODUODENOSCOPY ( EGD), FLEXIBLE, TRANSORAL, DIAGNOSTIC Rios's esophagus 07/03/2024 1:30 PM EDT COLONOSCOPY FLEXIBLE PROXIMA L DIAGNOSTIC Recall Family history of colon cancer Health Maintenance Due Date Last Done Comments Cologuard 2009 Sigmoidoscopy 2009 Fecal Occult Blood Test 02/26/2011 02/26/2010 Zoster Vaccines (1 of 2) 2014 Pneumococcal Vaccine: Pediatrics (0 to 5 Years) and At-Risk Patients (6 to 64 Years) (2 of 2 - PCV) 12/24/2014 12/24/2013 Depression Screening 05/21/2021 05/21/2020 DTaP,Tdap,and Td Vaccines (2 - Td or Tdap) 07/13/2021 07/13/2011, 10/30/2004 COVID-19 Vaccine (4 - 24 season) 2023 10/18/2021, 03/08/2021, 02/23/2021 Albumin/Creatinine Ratio [...] 09/18/2028 09/18/2023, 05/31, 03/09/2022, Additional history exists Colonoscopy 01/10/2029 01/11/2024, 0806/2019, 05/21/2010 Colorectal Cancer Screening 01/10/2029 Influenza Vaccine (FLU shot) Completed 07/30/2023, 06/30/2022, 07/30/2021, Additional history exists Hepatitis B Completed 12/06/2023, 090 03/2023, 06/06/2023, Additional history exists RETIRED - COLONOSCOPY-EVERY 5 YRS AGES 18-100 Discontinued 01/11/2024, 06/07/2019, 05/21/2010 GARDASIL-HPV IMMUNIZATION SERIES Aged Out No longer eligible based on patient's age to complete this topic MENINGOCOCCAL (MENACTRA/MENVEO) Aged Out No longer eligible based on patient's age to complete this topic documented as of this encounter Medical Devices Implanted Type Area Leaded Glass Installer Device Identifier Shelf Expiration Date Model / Serial / Lot Lipiodol Injection - [id number] Implanted:Qty: 1 on 08/02/2023 at [facility] [employer] 04/28/2026 [id number] Syr Pf 2ml Embospheres 100-300 - [id number] Implanted:Qty: 1 on 08/02/[address] [facility] [employer] [id number] 02/26/2026 S220 / / [id number] documented as of this encounter Care Teams Middle [employer] Volleyball Coach Relationship Specialty Start Date End Date Krystian Palomo MD [address] [place] [address] [place] [address] PCP - General Family Medicine 12/22/23 documented as of this encounter
--- OUTSIDE RECORDS SUMMARY | 2024-02-28 05:05 | External Medical Summary | Summary of Care ---
Author Name Unknown Organization [facility] Address [address] [place] [address] Phone [phone] Care Team Providers Care Dyeing Machine Back Tender Name Role Phone Krystian Palomo MD Primary Care Provide r Encounter Details Date Type Department Care Team (Late st Contact Info) Description 11/23/2023 Telephone Gastroenterology, [facility] 132 [facility] [place] [address] Services, Scheduling [address] [place] [address] Allergies Active Allergy Reactions Criticality Noted Date [...] the morning. 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 documented in this encounter Plan of Treatment Upcoming Encounters Date Type Department Care Team (Latest Contact Info) Description 05/01/202 4 8:30 AM EDT [facility] 132 [facility] [place] [address] Gw, Excess Time Radiology [address] [place] [address] 4 1:30 PM EDT Telemedicine Radiology, [place] [address] [place] [address] Amrit Magaña MD [address] [place] [address] 4 9:00 AM EDT Office Visit Gastroenterolog y, [facility] [address] [place] [address] Ren Pineda CRNP 132 [facility] [place] [address] 4 8:20 AM EDT Office Visit Family Medicine [address] [place] [phone] Krystian Palomo MD [address] [place] [address] [place] [address] 4 1:30 PM EDT Hospital Encounter ENDO OSSC, Endoscopy Room [place] [address] [facility] [place] [phone] Jayla Armstrong MD [address] [place] [phone] 4 1:30 PM EDT - 4 2:00 PM EDT Surgery ENDO [facility], Endoscopy Room [facility] [place] [phone] Jayla Armstrong MD [address] [place] [phone] ESOPHAGOGASTRODUODENOSCOPY (EGD), FLEXIBLE, TRANSORAL, DIAGNOSTIC Scheduled Procedures [...] Tdap) 07/13/2021 07/13/2011, 10/30/2004 COVID-19 Vaccine ( - season) 2023 10/18/2021, 03/08/2021, 02/23/2021 Albumin/Creatinine [...] this encounter Medical Devices Implanted Type Area Dental Internship Device Identifier Shelf Expiration Date Model / Serial / Lot Lipiodol Injection - [id number] Implanted:Qty: 1 on 08/02/2023 at [facility] [employer] 04/28/2026 [id number] 1 [id number] Syr Pf 2ml Embospheres 100-300 - [id number] Implanted:Qty: 1 on 08/02/2023 at [facility] [employer] [id number] 02/26/2026 [facility] / / [id number] documented as of this encounter Care Teams Dyeing Machine Back Tender Relationship Specialty Start Date End Date Krystian Palomo MD [address] [place] [address] [place] [address] PCP - General Family Medicine 12/22/23 documented as of this encounter
--- OUTSIDE RECORDS SUMMARY | 2024-02-28 05:06 | External Medical Summary | Summary of Care ---
Author Name Unknown Organization [facility] Address [address] [place] [address] Phone [phone] Care Team Providers Care Foundry Laborer Coreroom Name Role Phone Krystian Palomo MD Primary Care Provide r Reason for Visit * Reason Onset Date Comments Test Results 02/16/2024 Unexpected or In determinate Result Encounter Details Date Type Department Care Team (Late st Contact Info) Description 02/16/2024 Telephone Radiology [address] 132 [facility] [place] [address] Amrit Magaña MD [address] [place] [address] Test Results (Unexpected or Indeterminate ... 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 07/05/2023 Hepatic encephalopathy 03/28/2022 Overview: admitted [facility] [...] as of this encounter (statuses as of 02/21/2024) Resolved Problems Problem Noted Date Diagnosed Date [...] as of this encounter (statuses as of 02/21/2024) Immunizations Name Administration Dates Next Due COVID-19 [...] unexpected or indeterminate finding on Lloyd Spencer ([id number]) and asks that you review the following [...] TRINI Herrera Client Service Rep Diagnostic Medicine [place] documented in this encounter Plan of Treatment Upcoming Encounters Date Type Department Care Team (Latest Contact Info) Description 02/28/2024 8:30 AM EDT Imaging [facility] 2nd Floor Cardiology, [place] 132 [facility] [place] [address] Gw, Excess Time Radiology 132 [facility] [place] [address] 06/11/2024 9:00 AM EDT Office Visit Gastroenterology , [facility] 132 [facility] [place] [address] Ren Pineda CRNP 132 [facility] [place] [address] 06/24/2024 8:20 AM EDT Office Visit Family Medicine [address] [place] [phone] Krystian Palomo MD [address] [place] [address] [place] [address] 07/03/2024 1:30 PM EDT Hospital Encounter ENDO OSSC, Endoscopy Room [facility] 132 [facility] [place] [phone] Jayla Armstrong MD [address] [place] [address] 07/03/2024 1:30 PM EDT - 07/03/2024 2:00 PM EDT Surgery ENDO [facility], Endoscopy Room [facility] [address] [place] [phone] Jayla Armstrong MD [address] [place] [phone] ESOPHAGOGASTRODUODENOSCOPY (EGD), FLEXIBLE, TRANSORAL, DIAGNOSTIC Scheduled Procedures [...] this encounter Medical Devices Implanted Type Area Shipping Technician Device Identifier Shelf Expiration Date Model / Serial / Lot Lipiodol Injection - [id number] Implanted:Qty: 1 on 08/02/2023 at [facility] [employer] 04/28/2026 [id number] Syr Pf 2ml Embospheres 100-300 - [id number] Implanted:Qty: 1 on 08/02/2023 at [facility] [employer] [id number] 02/26/2026 [facility] / / [id number] documented as of this encounter Care Teams Foundry Laborer Coreroom Relationship Specialty Start Date End Date Krystian Palomo MD [address] [place] [address] [place] [address] PCP - General Family Medicine 12/22/23 documented as of this encounter
--- OUTSIDE RECORDS SUMMARY | 2024-02-28 05:06 | External Medical Summary | Summary of Care ---
Author Name Unknown Organization [facility] Address [address] [place] [address] Phone [phone] Care Team Providers Care Multifocal Lens Assembler Name Role Phone Krystian Palomo MD Primary Care Provide r Reason for Visit * Reason Onset Date Comments Other 02/12/2024 Encounter Details Date Type Department Care Team (Late st Contact Info) Description 02/12/2024 Telephone Gastroenterology, [facility] [address] [facility] [place] [address] Services, Scheduling [address] [place] [address] Other Allergies Active Allergy Reactions Criticality Noted Date Comments Aspirin 01/28/2022 Other reaction(s): bloody nose Salicylates 08/08/2001 nose bleeds documented as of this encounter (statuses as of 02/13/2024) Medications Medication Sig Dispensed Refills Start Date [...] AND ONE TABLET AT BEDTIME 60 Tablet 11/24/2023 Active Carvedilol 6.25 MG Oral Tablet [...] as of this encounter (statuses as of 02/13/2024) Active Problems Problem Noted Date Diagnosed Date BPH without obstruction/lower urinary tract symp toms 12/22/2023 BMI 36.0-36.9,adult 10/24/2023 Overview: 266 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 Please advise documented in this encounter Plan of Treatment Upcoming Encounters Date Type Department Care Team (Latest Contact Info) Description 02/16/2024 8:45 AM EDT Imaging Radiology [facility] 1st [facility], [place] [address] [place] [address] 02/28/2024 8:30 AM EDT Imaging [facility] II 2nd Floor Cardiology, [place] [address] [place] [address] Gw, Excess Time Radiology [address] [place] [address] 06/11/2024 9:00 AM EDT Office Visit Gastroenterology , [facility] [address] [place] [address] Ren Pineda CRNP [address] [place] [address] 06/24/2024 8:20 AM EDT Office Visit Family [address] [place] [phone] Krystian Palomo MD [address] [place] [address] [place] [address] 07/03/2024 1:30 PM EDT Hospital Encounter ENDO [facility], Endoscopy Room [facility] [address] [place] [phone] Jayla Armstrong MD [address] [place] [address] 07/03/2024 1:30 PM EDT - 07/03/2024 2:00 PM EDT Surgery ENDO [facility], Endoscopy Room [facility] [address] [place] [phone] Jayla Armstrong MD [address] [place] [id number] ESOPHAGOGASTRODUODENOSCOPY (EGD), FLEXIBLE, TRANSORAL, DIAGNOSTIC Scheduled Procedures [...] 07/13/2021 07/13/2011, 10/30/2004 COVID-19 Vaccine (4 - 2022- season) 2023 10/18/2021, 03/08/2021, 02/23/2021 Albumin/Creatinine Ratio [...] this encounter Medical Devices Implanted Type Area Adjuster Device Identifier Shelf Expiration Date Model / Serial / Lot Lipiodol Injection - [id number] Implanted:Qty: 1 on 08/02/2023 at [facility] [employer] 04/28/2026 [id number] 1 [id number] Syr Pf 2ml Embospheres 100-300 - [id number] Implanted:Qty: 1 on 08/02/2023 at [facility] [employer] [id number] 02/26/2026 [id number] / / [id number] documented as of this encounter Care Teams Multifocal Lens Assembler Relationship Specialty Start Date End Date Krystian Palomo MD [address] [place] [address] [place] [address] PCP - General Family Medicine 12/22/23 documented as of this encounter
--- OUTSIDE RECORDS SUMMARY | 2024-02-28 05:06 | External Medical Summary | Summary of Care ---
Author Name Unknown Organization [facility] Address [address] [place] [address] Phone [phone] Care Team Providers Care Bread Stacker Name Role Phone Krystian Palomo MD Primary Care Provide r Reason for Visit * Reason Onset Date Comments Test Results 02/16/2024 Unexpected or In determinate Result Encounter Details Date Type Department Care Team (Late st Contact Info) Description 02/16/2024 Telephone Rad[address] 132 [facility] [place] [address] Amrit Magaña MD [address] [place] [address] Test Results (Unexpected or Indeterminate [...] GONZALES 07/05/2023 Hepatic encephalopathy 03/28/2022 Overview: admitted [facility], ammonia 110 Aortic stenosis, moderate 01/21/2022 Thrombocytopenia [...] unexpected or indeterminate finding on Lloyd Spencer ([id number]) and asks that you review the following [...] TRINI Herrera Client Service Rep Diagnostic Medicine [place] documented in this encounter Plan of Treatment Upcoming Encounters Date Type Department Care Team (Latest Contact Info) Description 02/28/2024 8:30 AM EDT Imaging [facility] 2nd Floor Cardiology, [place] 132 [facility] [place] [address] Gw, Excess Time Radiology 132 [facility] [place] [address] 06/11/2024 9:00 AM EDT Office Visit Gastroenterology , [facility] 132 [facility] [place] [address] Ren Pineda CRNP 132 [facility] [place] [address] 06/24/2024 8:20 AM EDT Office Visit Family Medicine [address] [place] [phone] Krystian Palomo MD [address] [place] [address] [place] [address] 07/03/2024 1:30 PM EDT Hospital Encounter ENDO [facility], Endoscopy Room [facility] 132 [facility] [place] [phone] Jayla Armstrong MD [address] [place] [address] 07/03/2024 1:30 PM EDT - 07/03/2024 2:00 PM EDT Surgery ENDO [facility], Endoscopy Room [facility] [address] [place] [phone] Jayla Armstrong MD [address] [place] [id number] ESOPHAGOGASTRODUODENOSCOPY (EGD), FLEXIBLE, TRANSORAL, DIAGNOSTIC Scheduled Procedures [...] this encounter Medical Devices Implanted Type Area Glass Checker Device Identifier Shelf Expiration Date Model / Serial / Lot Lipiodol Injection - [id number] Implanted:Qty: 1 on 08/02/[address] [facility] [employer] 04/28/2026 15570-922 1 [id number] Syr Pf 2ml Embospheres 100-300 - [id number] Implanted:Qty: 1 on 08/02/[address] [facility] [employer] [id number] 02/26/2026 [facility] / / [id number] documented as of this encounter Care Teams Bread Stacker Relationship Specialty Start Date End Date Krystian Palomo MD [address] [place] [address] [place] [address] PCP - General Family Medicine 12/22/23 documented as of this encounter
--- OUTSIDE RECORDS SUMMARY | 2024-02-28 05:06 | External Medical Summary | Summary of Care ---
Author Name Unknown Organization [facility] Address [address] [facility] [place] [address] Phone [phone] Care Team Providers Care Operations Research Director Name Role Phone Krystian Palomo MD Primary Care Provide r Reason for Visit * Reason Onset Date Comments Appointment 02/15/2024 Encounter Details Date Type Department Care Team (Late st Contact Info) Description 02/15/2024 Telephone Radiology [address] [place] [address] Chantelle Marte, RT (M) Appointment Allergies Active Allergy Reactions Criticality Noted Date Comments Aspirin 01/28/2022 Other reaction(s): bloody nose Salicylates 08/08/2001 nose bleeds documented as of this encounter (statuses as of 02/15/2024) Medications Medication Sig Dispensed Refills Start Date [...] as of this encounter (statuses as of 02/15/2024) Active Problems Problem Noted Date Diagnosed Date BPH without obstruction/lower urinary tract symp toms 12/22/2023 BMI 36.0-36.9,adult 10/24/2023 Overview: 266 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 07/05/2023 Hepatic encephalopathy 03/28/2022 Overview: admitted [facility], ammonia 110 Aortic stenosis, moderate [...] as of this encounter (statuses as of 02/15/2024) Resolved Problems Problem Noted Date Diagnosed Date [...] as of this encounter (statuses as of 02/15/2024) Immunizations Name Administration Dates Next Due COVID-19 [...] encounter Miscellaneous Notes * Telephone Encounter - Chantelle Marte RT (M) - 02/15/2024 10:32 AM EDT If you answer "yes" to any of the following, please give us a call at before coming to your MRI appointment: Do you have a pacemaker/defibrillator?No Do you have any electronic or mechanical implants?No Have you had a recent colonoscopy in the last 30 days? Yes - no polyps removed Are you or ?N/A Do you work around metal or ever gotten metal in your eyes?No Any dermals or body piercing you cannot remove?No Do you wear an insulin pump or diabetic monitor? no Have you had any tattoos or permanent makeup in the last 4 weeks? No documented in this encounter Plan of Treatment Upcoming Encounters Date Type Department Care Team (Latest Contact Info) Description 02/16/2024 8:45 AM EDT Imaging Radiology [facility] 1st [facility], [address] [place] [address] 02/28/2024 8:30 AM EDT Imaging [facility] 2nd Floor Cardiology, [address] [place] [address] Gw, Excess Time Radiology [address] [place] [address] 06/11/2024 9:00 AM EDT Office Visit Gastroenterology , [facility] [address] [place] [address] Ren Pineda CRNP [address] [place] [address] 06/24/2024 8:20 AM EDT Office Visit [address] [place] [phone] Krystian Palomo MD [address] [place] [address] [place] [address] 07/03/2024 1:30 PM EDT Hospital Encounter ENDO [facility], Endoscopy Room [facility] [address] [place] [phone] Jayla Armstrong MD [address] [place] [address] 07/03/2024 1:30 PM EDT - 07/03/2024 2:00 PM EDT Surgery ENDO [facility], Endoscopy Room [facility] [address] [place] [phone] Jayla Armstrong MD [address] [place] [address] ESOPHAGOGASTRODUODENOSCOPY (EGD), FLEXIBLE, TRANSORAL, DIAGNOSTIC Scheduled Procedures [...] this encounter Medical Devices Implanted Type Area Seat Builder Device Identifier Shelf Expiration Date Model / Serial / Lot Lipiodol Injection - [id number] Implanted:Qty: 1 on 08/02/2023 at [facility] [employer] 04/28/2026 21951-690 1 -[id number] Syr Pf 2ml Embospheres 100-300 - [id number] Implanted:Qty: 1 on 08/02/2023 at [facility] [employer] [id number] 02/26/2026 [facility] / / [id number] documented as of this encounter Care Teams Operations Research Director Relationship Specialty Start Date End Date Krystian Palomo MD [address] [place] [address] [place] [address] PCP - General Family Medicine 12/22/23 documented as of this encounter
--- OUTSIDE RECORDS SUMMARY | 2024-02-28 05:06 | External Medical Summary | Summary of Care ---
Author Name Unknown Organization [facility] Address [address] [place] [address] Phone [phone] Care Team Providers Care Micropaleontologist Name Role Phone Krystian Palomo MD Primary Care Provide r Reason for Visit * Reason Onset Date Comments Test Results 02/16/2024 Unexpected or In determinate Result Encounter Details Date Type Department Care Team (Late st Contact Info) Description 02/16/2024 Telephone Radiology [address] 132 [facility] [place] [address] Armit Magaña MD [address] [place] [address] Test Results (Unexpected or Indeterminate ... 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 07/05/2023 Hepatic encephalopathy 03/28/2022 Overview: admitted [facility], ammonia 110 Aortic stenosis, moderate 01/21/2022 [...] as of this encounter (statuses as of 02/16/2024) Resolved Problems Problem Noted Date Diagnosed Date [...] as of this encounter (statuses as of 02/16/2024) Immunizations Name Administration Dates Next Due COVID-19 [...] unexpected or indeterminate finding on Lloyd Spencer ([id number]) and asks that you review the following [...] TRINI Herrera Client Service Rep Diagnostic Medicine [place] documented in this encounter Plan of Treatment Upcoming Encounters Date Type Department Care Team (Latest Contact Info) Description 02/28/2024 8:30 AM EDT Imaging [facility] 2nd Floor Cardiology, [place] 132 [facility] [place] [address] Gw, Excess Time Radiology 132 [facility] [place] [address] 06/11/2024 9:00 AM EDT Office Visit Gastroenterology , [facility] 132 [facility] [place] [address] Ren Pineda CRNP 132 [facility] [place] [address] 06/24/2024 8:20 AM EDT Office Visit Family Medicine [address] [place] [phone] Krystian Palomo MD [address] [place] [address] [place] [address] 07/03/2024 1:30 PM EDT Hospital Encounter ENDO [facility], Endoscopy Room [facility] 132 [facility] [place] [phone] Jayla Armstrong MD [address] [place] [address] 07/03/2024 1:30 PM EDT - 07/03/2024 2:00 PM EDT Surgery ENDO [facility], Endoscopy Room [facility] [address] [place] [phone] Jayla Armstrong MD [address] [place] [phone] ESOPHAGOGASTRODUODENOSCOPY (EGD), FLEXIBLE, TRANSORAL, DIAGNOSTIC Scheduled Procedures [...] this encounter Medical Devices Implanted Type Area Iron Molder Helper Device Identifier Shelf Expiration Date Model / Serial / Lot Lipiodol Injection - [id number] Implanted:Qty: 1 on 08/02/2023 at [facility] [employer] 04/28/2026 95353-141 1 [id number] Syr Pf 2ml Embospheres 100-300 - [id number] Implanted:Qty: 1 on 08/02/2023 at [facility] [email or web address] [id number] 02/26/2026 [facility] / / [id number] documented as of this encounter Care Teams Micropaleontologist Relationship Specialty Start Date End Date Krystian Palomo MD [address] [place] [address] [place] [address] PCP - General Family Medicine 12/22/23 documented as of this encounter
--- OUTSIDE RECORDS SUMMARY | 2024-02-28 05:07 | External Medical Summary | Summary of Care ---
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) Allergies Active Allergy Reactions Criticality Noted Date Comments Aspirin 01/28/2022 Other reaction(s): bloody nose Salicylates 08/08/2001 nose bleeds documented as of this encounter (statuses as of 02/08/2024) Medications Medication Sig Dispensed Refills Start Date [...] as of this encounter (statuses as of 02/08/2024) Active Problems Problem Noted Date Diagnosed Date BPH without obstruction/lower urinary tract symp toms 12/22/2023 BMI 36.0-36.9,adult 10/24/2023 Overview: 266 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 07/05/2023 Hepatic encephalopathy 03/28/2022 Overview: admitted [facility], ammonia 110 Aortic stenosis, moderate 01/21/2022 [...] as of this encounter (statuses as of 02/08/2024) Resolved Problems Problem Noted Date Diagnosed Date [...] as of this encounter (statuses as of 02/08/2024) Immunizations Name Administration Dates Next Due COVID-19 [...] Description 02/16/2024 8:45 AM EDT Imaging Radiology [facility] 1st Floor, [place] [address] [place] [address] 02/28/2024 8:30 AM EDT Imaging [facility] [address] [place] [address] Gw, Excess Time Radiology [address] [place] [address] 06/11/2024 9:00 AM EDT Office Visit Gastroenterology , [facility] [address] [place] [address] Ren Pineda CRNP [address] [place] [address] 06/24/2024 8:20 AM EDT Office Visit Family Medicine [address] [phone] Krystian Palomo MD [address] [place] [address] [place] [address] 07/03/2024 1:30 PM EDT Hospital Encounter ENDO [facility], Endoscopy Room [facility] [address] [place], [place] [phone] Jayla Armstrong MD [address] [place] [address] 07/03/2024 1:30 PM EDT - 07/03/2024 2:00 PM EDT Surgery ENDO [facility], Endoscopy Room [facility] [address] [place], [place] [phone] Jayla Armstrong MD [address] [place] [place] [address] ESOPHAGOGASTRODUODENOSCOPY (EGD), FLEXIBLE, TRANSORAL, DIAGNOSTIC Pending Results Name Type Priority Associated Diagnoses Date /Time SODIUM, RANDOM URINE Lab Routine 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) 02/08/2024 1:27 PM EDT POTASSIUM, RANDOM URINE Lab Routine 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) 02/08/2024 1:27 PM EDT Scheduled Procedures Name Priority Associated Diagnoses Date/Ti [...] 07/13/2021 07/13/2011, 10/30/2004 COVID-19 Vaccine ( - 2022- season) 2023 10/18/2021, 03/08/2021, 02/23/2021 [...] Additional history exists Hepatitis B Completed 12/06/2023, 09/03/2023, 06/06/2023, Additional history exists GARDASIL-HPV IMMUNIZATION SERIES Aged Out No longer eligible based on patient's age to complete this topic MENINGOCOCCAL (MENACTRA/MENVEO) Aged Out No longer eligible based on patient's age to complete this topic documented as of this encounter Medical Devices Implanted Type Area Rail Technician Device Identifier Shelf Expiration Date Model / Serial / Lot Lipiodol Injection - [id number] Implanted:Qty: 1 on 08/02/2023 at [facility] [employer] 04/28/2026 83141-477 1 [id number] Syr Pf 2ml Embospheres 100-300 - [id number] Implanted:Qty: 1 on 08/02/2023 at 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
--- OUTSIDE RECORDS SUMMARY | 2024-02-28 05:07 | External Medical Summary | Summary of Care ---
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, ammonia 110 Aortic stenosis, moderate 01/21/2022 [...] 8:45 AM EDT Imaging Radiology [facility] 1st Floor, [place] [address] [place] [address] 02/28/2024 8:30 AM EDT Imaging [facility] [address] [place] [address] Gw, Excess Time Radiology [address] [place] [address] 06/11/2024 9:00 AM EDT Office Visit Gastroenterology , [facility] [address] [place] [address] Ren Pineda CRNP 132 [place] [address] 06/24/2024 8:20 AM EDT Office Visit Family Medicine [address] [phone] Krystian Palomo MD [address] [place] [address] [place] [address] 07/03/2024 1:30 PM EDT Hospital Encounter ENDO [facility], Endoscopy Room [facility] [address] [place] [phone] Jayla Armstrong MD [address] [place] [address] 07/03/2024 1:30 PM EDT - 07/03/2024 2:00 PM EDT Surgery ENDO [facility], Endoscopy Room [facility] [address] [facility] [place] [phone] Jayla Armstrong MD [address] [place] [address] ESOPHAGOGASTRODUODENOSCOPY (EGD), FLEXIBLE, TRANSORAL, DIAGNOSTIC Pending Results Name Type Priority Associated Diagnoses Date /Time CBC WITH WBC DIFFERENTIAL Lab Routine 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) 02/08/2024 9:44 AM EDT PT INR Lab Routine 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) 02/08/2024 9:44 AM EDT ALPHA-FETOPROTEIN TUMOR MARKER Lab Routine 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) HCC (hepatocellular carcinoma) (HCC) 02/08/2024 9:44 AM EDT CBC Lab Routine 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) 02/08/2024 9:44 AM EDT DIFFERENTIAL, AUTOMATED Lab Routine 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) 02/08/2024 9:44 AM EDT Scheduled Procedures Name Priority Associated Diagnoses [...] 09/20/2023, , 03/16/2021, Additional history exists GFR 01/23/2025 01/24/2024, 10/31, 11/09/2023, Additional history exists Lipid Panel 09/18/2028 09/18/2023, 05/31, 03/09/2022, Additional history exists COLONOSCOPY-EVERY 5 YRS AGES 18-100 01/10/2029 01/11/2024, 06/07/2019, 05/21/2010 Influenza Vaccine (FLU shot) Completed 10/2022, 06/30/2022, 07/30/2021, Additional history exists Hepatitis B Completed 12/06/2023, 0903/2023, 06/06/2023, Additional history exists GARDASIL-HPV IMMUNIZATION SERIES Aged Out No longer eligible based on patient's age to complete this topic MENINGOCOCCAL (MENACTRA/MENVEO) Aged Out No longer eligible based on patient's age to complete this topic documented as of this encounter Medical Devices Implanted Type Area Face Boss Device Identifier Shelf Expiration Date Model / Serial / Lot Lipiodol Injection - [id number] Implanted:Qty: 1 on 08/02/2023 at [facility] [employer] 04/28/2026 [id number] 1 [id number] Syr Pf 2ml Embospheres 100-300 - [id number] Implanted:Qty: 1 on 08/02/2023 at [facility] [employer] [id number] 02/26/2026 S220 / / [id number] documented as of this encounter Visit Diagnoses Diagnosis 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
--- OUTSIDE RECORDS SUMMARY | 2024-02-28 05:07 | External Medical Summary | Summary of Care ---
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)*; HCC (hepatocellular carcinoma) (HCC) Allergies Active Allergy [...] GONZALES 07/05/2023 Hepatic encephalopathy 03/28/2022 Overview: admitted [facility], ammonia 110 Aortic stenosis, moderate [...] Sign Reading Time Taken Comments Blood Pressure 102/58 02/08/2024 8:55 AM EDT Pulse 75 02/08/2024 8:55 AM EDT Temperature 36.7 C (98.1 F) 02/08/2024 8:55 AM ED T Respiratory Rate 20 02/08/2024 8:55 AM EDT Oxygen Saturation - - Inhaled Oxygen Concentration - - Weight 119 kg (262 lb 4.8 oz) 02/08/2024 8:55 AM EDT Height - - Body Mass Index 36.32 11/09/2023 8:50 AM EST documented in this encounter Progress Notes * Ren Pineda CRNP - 02/08/2024 8:45 AM EDT CC: Recheck GONZALES Cirrhosis HPI: Recall that Mr. Lloyd Spencer is a 58 year old male pt of Stanford Mays MD with a hx of , obesity, DM-2, gout, hyperlipidemia, anaplasmosis (2019). He is a [employer] employee. Cirrhosis was dx'shahla April 2021 when he presented w confusion. Began w ascites around Sep 2023, now managed w diuretics and paracenteses. No further episodes of hepatic encephalopathy. Eval by liver transplant w recommendation for cardiac testing and 20 - 30 lbs weight loss. Complications: Liver Lesions MRI 11/06/23 (post bland embolization) *2.1 x 1.9 cm segment 7 post treatment cavity with heterogeneous arterial hyperenhancement and washout, although late arterial sequence is limited due to motion. (LR-TR equivocal) Stable 1.1 cm observation in segment 5 with heterogeneous enhancement and washout, previously LR-5.No new suspicious lesions. Ascites: Current diuretic dosing: furosemide 40mg/spironolactone 100 daily (just increased the spironolactone a week ago). Loses his balance easily - so hesitant to increase diuretics further. Most recent paracentesis 01/24/24 removal of 5.5L HCC LIRADs5 liver lesion underwent bland embolization in Aug 2023 Hepatic Encephalopathy: Rifaximin 550mg BID (sometimes forgets the evening dose) Lactulose - had stopped due to it causing dry heaves, had a bit of tremor and slow speech per mother and brother who lives in his house. Now restarted once daily and passing 1-2 BMs/day w resolution of those symptoms. Screenings: EGD Jun 2023 w PHG, no varices. Colonoscopy in December 2023, int hem otherwise normal MELD 3.0: 20 at 11/09/2023 10:13 AM Calculated from: Serum Creatinine: 0.9 mg/dL (Using min of 1 mg/dL) at 11/09/2023 10:13 AM Serum Sodium: 135 mmol/L at 11/09/2023 10:13 AM Total Bilirubin: 4.1 mg/dL at 11/09/2023 10:13 AM Serum Albumin: 2.6 g/dL at 11/09/2023 10:13 AM INR(ratio): 1.8 at 11/09/2023 10:13 AM Age at listing (hypothetical): 58 years Sex: Male at 11/09/2023 10:13 AM EXAM: BP 102/58 | Pulse 75 | Temp 36.7 C (98.1 F) (Infrared ) | Resp 20 | Wt 119 kg (262 lb 4.8 oz) |BMI 36.32 kg/m | BSA 2.45 m GENERAL: 58 year old male well developed and well nourished in no acute distress SKIN: no rashes, ulcers, or spider angiomata HEENT: normocephalic, sclera clear, pharynx normal NECK: supple, no lymphadenopathy, no masses or thyroid enlargement LUNGS: clear to auscultation anterior and posterior HEART: regular rate & rhythm, no murmurs and no gallops ABDOMEN: normo-active bowel sounds, soft, Umbilical hernia - reducible/non tender, moderate ascities, no hepatosplenomegaly, no rebound or guarding, no bruits EXTREMITIES: no palmar erythema, no edema, no skin discoloration, no clubbing, no cyanosis NEURO: no lateralizing findings, Sensory/Motor grossly normal, no asterix IMPRESSION/RECOMMENDATIONS: 58 year old male with Cirrhosis w ascites, hx of Hep Enceph, hx of HCC,being eval for transplant. - MELD labs today. - EGD for screening/surveillance of EV: due jun 2024 - Colonoscopy: due 2033 - Hep A immunity: serology immune - Hep B immunity: serology immune - HCC surveillance: MRI esme for 02/16/24 - Encouraged to abstain from ETOH, illicit drugs, APAP no more than 2g daily - Low salt (2g) daily - Fluid management: - paracenteses: Ordered Q 2 wks, up to 7L, replacement albumin per protocol. - diuretics Continue Furosemide 40/spironolactone 100. - Hx of Hep Enceph: - lactulose increase to 2-3 doses daily to affect 3 loose BMs/day - rifaximin continue 550mg BID - Liver transplant eval - continue salguero and f/u w liver transplant service. Has Nuclear Stress Test February 27. 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 I spent a total of 30 minutes on the date of service in review of patient's record, and previously obtained information in person and appropriate medical visit, discussion and education of plan, withpatient and/or caregiver, placing orders for tests/referral/procedures as medically necessary and documentation of pertinent clinical information in patient's medical records for their visit today. Thank you for the opportunity to be involved in the care of this patient. CONCHIS Concepcion documented in this encounter Nursing Notes * Desire Melo RN - 02/08/2024 8:58 AM EDT Chief Complaint Patient presents with Follow Up Cirrhosis Had stopped using Lactulose for a couple of weeks because he was dry heaving after taking it. Started to take it again on Monday. Had some hand tremors over the weekend and states his brother and mother told him that his speech was slightly mumbled together but these symptoms have since improved. Is using the Xifaxin at least once a day. Sometimes forgets evening dose. Is moving bowels 1- 2 times a day. Is not eating much. Thinks abdomen is full, is going to call [facility] today to see if he can get scheduled for a paracentesis. Is requesting another excuse for work. Gets SOB if abdomen is very full. 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); HCC (hepatocellular carcinoma) (HCC) 02/16/2024 8:45 AM EDT Imaging Radiology [facility] 1st Floor, [place] [address] [place] [address] 02/28/2024 8:30 AM EDT Imaging [facility] II 2nd Floor Cardiology, [place] [address] [place] [address] Gw, Excess Time Radiology [address] [place] [address] 06/11/2024 9:00 AM EDT Office Visit Gastroenterolog y, [facility] [address] [place] [address] Ren Pineda CRNP [address] [place] [address] 06/24/2024 8:20 AM EDT Office Visit [address] [place] [phone] Krystian Palomo MD [address] [place] [address] [place] [address] 07/03/2024 1:30 PM EDT Hospital Encounter ENDO [facility], Endoscopy Room [facility] [address] [place] [phone] Jayla Armstrong MD [address] [place] [id number] 07/03/2024 1:30 PM EDT - 07/03/2024 2:00 PM EDT Surgery ENDO [facility], Endoscopy Room [facility] [address] [place] [phone] Jayla Armstrong MD [address] [place] [address] ESOPHAGOGASTRODUODENOSCOPY (EGD), FLEXIBLE, TRANSORAL, DIAGNOSTIC Scheduled Orders Name Type Priority Associated Diagnoses Orde r Schedule CBC WITH WBC DIFFERENTIAL Lab Routine 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) Expected: 02/08/2024, Expires: 02/07/2025 COMPREHENSIVE METABOLIC PANEL Lab Routine 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) Ordered: 02/08/2024 PT INR Lab Routine 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) Expected: 02/08/2024, Expires: 02/07/2025 ALPHA-FETOPROTEIN TUMOR MARKER Lab Routine 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) HCC (hepatocellular carcinoma) (HCC) Expected: 02/08/2024, Expires: 02/07/2025 SODIUM, RANDOM URINE Lab Routine 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) Expected: 02/08/2024, Expires: 02/07/2025 POTASSIUM, RANDOM URINE Lab Routine 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) Expected: 02/08/2024, Expires: 02/07/2025 EGD, FLEXIBLE, DIAGNOSTIC Procedures Routine 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) Expected: 07/02/2024, Expires: 03/09/2025 Scheduled Procedures Name Priority Associated Diagnoses Date/Ti [...] this encounter Medical Devices Implanted Type Area Filament Coil Winder Device Identifier Shelf Expiration Date Model / Serial / Lot Lipiodol Injection - [id number] Implanted:Qty: 1 on 08/02/2023 at [facility] [employer] 04/28/2026 [id number] Syr Pf 2ml Embospheres 100-300 - [id number] Implanted:Qty: 1 on 08/02/2023 at [facility] [employer] [id number] 02/26/2026 [id number] / / [id number] documented as of this encounter Visit Diagnoses Diagnosis 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
--- OUTSIDE RECORDS SUMMARY | 2024-02-28 05:07 | External Medical Summary | Summary of Care ---
Author Name Unknown Organization [facility] Address [address] [place] [address] Phone [phone] Care Team Providers Care School Bus Driver/Custodian Name Role Phone Krystian Palomo MD Primary Care Provide r Reason for Visit * Reason Onset Date Comments Appointment 02/08/2024 IR Encounter Details Date Type Department Care Team (Late st Contact Info) Description 02/08/2024 Telephone Interventional Radiology [facility] 1st Floor [address] [place] [address] Maria Elena John LPN Appointment (IR) Allergies Active Allergy Reactions Criticality Noted Date [...] Description 02/16/2024 8:45 AM EDT Imaging Radiology [facility] [address] [place] [address] 02/28/2024 8:30 AM EDT Imaging [facility] II 2nd Floor Cardiology, [address] [place] [address] Gw, Excess Time Radiology 132 [facility] [place] [address] 06/11/2024 9:00 AM EDT Office Visit Gastroenterology , [address] [place] [address] Ren Pineda CRNP [address] [facility] [place] [address] 06/24/2024 8:20 AM EDT Office Visit Family Medicine [facility] [place] [phone] Krystian Palomo MD [address] [place] [address] [place] [address] 07/03/2024 1:30 PM EDT Hospital Encounter ENDO [facility], Endoscopy Room [facility] [address] [place] [phone] Jayla Armstrong MD [address] [place] [address] 07/03/2024 1:30 PM EDT - 07/03/2024 2:00 PM EDT Surgery [facility]O [facility], Endoscopy Room [facility] [address] [place], [place] [phone] Jayla Armstrong MD [address] [place] [address] ESOPHAGOGASTRODUODENOSCOPY (EGD), FLEXIBLE, TRANSORAL, DIAGNOSTIC Scheduled [...] this encounter Medical Devices Implanted Type Area Balcony Worker Device Identifier Shelf Expiration Date Model / Serial / Lot Lipiodol Injection - [id number] Implanted:Qty: 1 on 08/02/2023 at [facility] [employer] 04/28/2026 [id number] 1 [id number] Syr Pf 2ml Embospheres 100-300 - [id number] Implanted:Qty: 1 on 08/02/2023 at [facility] [employer] [id number] 02/26/2026 S220 / / [id number] documented as of this encounter Care Teams School Bus Driver/Custodian Relationship Specialty Start Date End Date Krystian Palomo MD [address] [place] [address] [place] [address] PCP - General Family Medicine 12/22/23 documented as of this encounter
--- OUTSIDE RECORDS SUMMARY | 2024-02-28 05:07 | External Medical Summary | Summary of Care ---
Author Name Unknown Organization [facility] Address [address] [facility] [address] Phone [phone] Care Team Providers Care Reporting Consultant Name Role Phone Krystian Palomo MD Primary Care Provide r Encounter Details Date Type Department Care Team (Late st Contact Info) Description 02/09/2024 Result Scan Unspecified Department Ren Pineda CRNP [address] [place] [address] <No scans attached> Allergies Active Allergy Reactions Criticality Noted Date Comments Aspirin 01/28/2022 Other reaction(s): bloody nose Salicylates 08/08/2001 nose bleeds documented as of this encounter (statuses as of 02/12/2024) Medications Medication Sig Dispensed Refills Start Date [...] as of this encounter (statuses as of 02/12/2024) Active Problems Problem Noted Date Diagnosed Date BPH without obstruction/lower urinary tract symp toms 12/22/2023 BMI 36.0-36.9,adult 10/24/2023 Overview: 266 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 [place] [address] 02/28/2024 8:30 AM EDT Imaging [facility] [address] [place] [address] Gw, Excess Time Radiology [address] [place] [address] 06/11/2024 9:00 AM EDT Office Visit Gastroenterology , [facility] [address] [place] [address] Ren Pineda CRNP [address] [place] [address] 06/24/2024 8:20 AM EDT Office Visit Family Medicine [address] [place] [address] Krystian Palomo MD [address] [place] [address] [place] [address] 07/03/2024 1:30 PM EDT Hospital Encounter [facility]O [facility], Endoscopy Room [facility] [address] [place], [place] [phone] Jayla Armstrong MD [address] [place] [address] 07/03/2024 1:30 PM EDT - 07/03/2024 2:00 PM EDT Surgery ENDO [facility], Endoscopy Room [facility] [address] [place] [phone] Jayla Armstrong MD [address] [place] [...] this encounter Medical Devices Implanted Type Area Garnett Fixer Device Identifier Shelf Expiration Date Model / Serial / Lot Lipiodol Injection - [id number] Implanted:Qty: 1 on 08/02/2023 at [facility] [employer] 04/28/2026 [id number] Syr Pf 2ml Embospheres 100-300 - [id number] Implanted:Qty: 1 on 08/02/2023 at [facility] [employer] [id number] 02/26/2026 S220 / / [id number] documented as of this encounter Procedures Procedure Name Priority Date/Time Associated Diagnosis Comments RADIOLOGY SCANNED RESULT 02/09/2024 documented in this encounter Results * RADIOLOGY SCANNED RESULT (02/09/2024) 02/09/2024 Ren BALDERRAMA DIAGNOSTIC RADIOLO [facility] documented in this encounter Care Teams Reporting Consultant Relationship Specialty Start Date End Date Krystian Palomo MD [address] [place] [address] [place] [phone] PCP - General Family Medicine 12/22/23 documented as of this encounter
--- OUTSIDE RECORDS SUMMARY | 2024-02-28 05:08 | External Medical Summary ---
Author Name Unknown Address Unknown Organization K0G:[facility] [address] [place] [address] Laboratory Report Ordering Provider Test Date Status HERIBERTO RAO 02/08/2024 09:44:48 Final Observation Date Value Abnormality Reference (Units ) Status BUN 02/08/2024 09:44:48 11 6-20 (mg/dL) Final Creatinine 02/08/2024 09:44:48 1.0 0.6-1.2 (mg/dL) Final Glomerular filtration rate/1.73 sq M.predicted [Volume Rate/Area] in Serum, Plasma or Blood by Creatinine-based formula (CKD-EPI) 02/08/2024 09:44:48 86 >=60 (mL/min) Final eGFR is calculated based on the CKD-EPI 2020 equation Sodium 02/08/2024 09:44:48 134 Below low normal 135 -146 (mmol/L) Final Potassium 02/08/2024 09:44:48 4.1 3.5-5.1 (m mol/L) Final Cl 02/08/2024 09:44:48 102 98-107 (mm ol/L) Final CO2 02/08/2024 09:44:48 23 22-32 (mmo l/L) Final Anion gap 02/08/2024 09:44:48 9 7-15 (mmol /L) Final Glucose 02/08/2024 09:44:48 218 Above high normal 70 -120 (mg/dL) Final Albumin 02/08/2024 09:44:48 2.6 Below low normal 3.8 -5.0 (g/dL) Final AST (Aspartate aminotransferase) 02/08/2024 09:44:48 65 Above high normal 10-50 (U/L) Final Alk Phos 02/08/2024 09:44:48 196 Above high normal 35 -130 (U/L) Final Bilirubin, Total 02/08/2024 09:44:48 3.3 Above high no rmal <=1.2 (mg/dL) Final Calcium 02/08/2024 09:44:48 8.5 8.4-10.2 ( mg/dL) Final Protein 02/08/2024 09:44:48 6.9 6.0-8.3 (g /dL) Final ALT (Alanine aminotransferase) 02/08/2024 09:44:48 42 10-50 (U/L) Christian bundy Performing Location [facility] [place] [address] [place] [address]
--- OUTSIDE RECORDS SUMMARY | 2024-02-28 05:08 | External Medical Summary ---
Author Name Unknown Address Unknown Organization [id number]:LABORATORY [facility] - [address] [place] [address] Laboratory Report Ordering Provider Test Date Status HERIBERTO RAO 02/08/2024 09:44:48 Final Observation Date Value Abnormality Reference (Units ) Status Alpha-Fetoprotein 02/08/2024 09:44:48 3.6 0. 0-8.3 (ng/mL) Final Performing Location LABORATORY [facility] - [address] [place] [address]
--- OUTSIDE RECORDS SUMMARY | 2024-02-28 05:08 | External Medical Summary ---
Author Name Unknown Address Unknown Organization K0G:[facility]ATORY [facility] [address] [place] [address] Laboratory Report Ordering Provider Test Date Status HERIBERTO RAO 02/08/2024 09:44:48 Final Observation Date Value Abnormality Reference (Units ) Status Nucleated erythrocytes/100 leukocytes [Ratio] in Blood by Automated count 02/08/2024 09:44:48 Final Performing Location LAB[facility]ATORY [facility] [address] [place] [address]
--- OUTSIDE RECORDS SUMMARY | 2024-02-28 05:08 | External Medical Summary ---
Author Name Unknown Address Unknown Organization K0G:LABORATORY [facility] [address] [place] [address] Laboratory Report Ordering Provider Test Date Status HERIBERTO RAO 02/08/2024 09:44:48 Final Observation Date Value Abnormality Reference (Units ) Status SYNC LEUKOCYTES IN BLOOD BY AUTOMATED COUNT 02/08/2024 09:44:48 5.61 4.00-10.80 (K/uL) Final Segs 02/08/2024 09:44:48 67.9 40.0-75.0 (%) Final Lymphs % 02/08/2024 09:44:48 11.6 Below low normal 18.0-42.0 (%) Final Monos 02/08/2024 09:44:48 14.8 Above high normal 1.0-11.0 (%) Final Eosinophils 02/08/2024 09:44:48 4.8 0.0-6.0 (%) Final Basos 02/08/2024 09:44:48 0.9 0.0-2.0 (%) Final Absolute Segs 02/08/2024 09:44:48 3.81 1.80-7.70 (K/uL) Final Lymphs, absolute 02/08/2024 09:44:48 0.65 Below low normal 1.00-4.80 (K/ul) Final Monos, Abs 02/08/2024 09:44:48 0.83 0.00-1.10 (K/uL) Final Eos, Abs 02/08/2024 09:44:48 0.27 0.00-0.70 (K/uL) Final Basos, Abs 02/08/2024 09:44:48 0.05 0.00-0.20 (K/uL) Final Performing Location LABORATORY [facility] [address] [place] [address]
--- OUTSIDE RECORDS SUMMARY | 2024-02-28 05:08 | External Medical Summary | Summary of Care ---
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 He is a [employer] employee. 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 w position [...] Team (Late st Contact Info) Description 02/16/2024 8:45 AM EDT Imaging Radiology [facility] 1st Floor, [place] 132 [facility] [place] [address] 02/28/2024 8:30 AM EDT Imaging [facility] 2nd Floor Cardiology, [place] [address] [place] [address] Gw, Excess Time Radiology 132 [facility] [place] [address] 06/24/2024 8:20 AM EDT Office Visit Family Medicine [facility] [place] [place] [phone] Krystian Palomo MD [address] [place] [address] [place] [address] Scheduled Orders Name Type Priority Associated Diagnoses [...] this encounter Medical Devices Implanted Type Area [employer] Device Identifier Shelf Expiration Date Model / Serial / Lot Lipiodol Injection - [id number] Implanted:Qty: 1 on 08/02/2023 at [facility] [employer] 04/28/2026 [id number] -[id number] Syr Pf 2ml Embospheres 100-300 - [id number] Implanted:Qty: 1 on 08/02/2023 at [facility] [employer] [id number] 02/26/2026 [id number] / / [id number] documented as of this encounter Visit Diagnoses Diagnosis 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
--- OUTSIDE RECORDS SUMMARY | 2024-02-28 05:08 | External Medical Summary | Summary of Care ---
Author Name Unknown Organization [facility] Address [address] [facility] [address] Phone [phone] Care Team Providers Care Drapery Counselor Name Role Phone Krystian Palomo MD Primary Care Provide r Encounter Details Date Type Department Care Team (Late st Contact Info) Description 01/24/2024 Result Scan Unspecified Department Ren Pineda CRNP [address] [place] [address] <No scans attached> Allergies Active Allergy Reactions Criticality Noted Date Comments Aspirin 01/28/2022 Other reaction(s): bloody nose Salicylates 08/08/2001 nose bleeds documented as of this encounter (statuses as of 01/25/2024) Medications Medication Sig Dispensed Refills Start Date [...] as of this encounter (statuses as of 01/25/2024) Active Problems Problem Noted Date Diagnosed Date BPH without obstruction/lower urinary tract symp toms 12/22/2023 BMI 36.0-36.9,adult 10/24/2023 Overview: 266 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 07/05/2023 Hepatic encephalopathy 03/28/2022 Overview: admitted [facility], ammonia 110 Aortic stenosis, [...] as of this encounter (statuses as of 01/25/2024) Resolved Problems Problem Noted Date Diagnosed Date [...] as of this encounter (statuses as of 01/25/2024) Immunizations Name Administration Dates Next Due COVID-19 [...] Team (Late st Contact Info) Description 02/08/2024 9:00 AM EDT Office Visit Gastroenterology, [address] [place] [address] Ren Pineda CRNP [address] [place] [address] 02/16/2024 8:45 AM EDT Imaging Radiology [facility] 1st [facility] [place] Fausto Res[address]ail [place] [address] 02/28/2024 8:30 AM EDT Imaging [facility] 2nd Floor Cardiology, [address] [place] [address] Gw, Excess Time Radiology [facility] [address] [place] [address] 06/24/2024 8:20 AM EDT Office Visit Family Medicine [address] [place] [phone] Krystian Palomo MD [address] [place] [address] [place] [address] Scheduled Procedures Name Priority Associated Diagnoses Date/Ti [...] Additional history exists Hepatitis B Completed 12/06/2023, 09/0 03/2023, 06/06/2023, Additional history exists GARDASIL-HPV IMMUNIZATION SERIES Aged Out No longer eligible based on patient's age to complete this topic MENINGOCOCCAL (MENACTRA/MENVEO) Aged Out No longer eligible based on patient's age to complete this topic documented as of this encounter Medical Devices Implanted Type Area Window Trimmer Device Identifier Shelf Expiration Date Model / Serial / Lot Lipiodol Injection - [id number] Implanted:Qty: 1 on 08/02/2023 at [facility] [employer] 04/28/2026 [id number] Syr Pf 2ml Embospheres 100-300 - [id number] Implanted:Qty: 1 on 08/02/2023 at [facility] [employer] [id number] 02/26/2026 S220 / / [id number] documented as of this encounter Procedures Procedure Name Priority Date/Time Associated Diagnosis Comments OUTSIDE LAB RESULTS 01/24/2024 documented in this encounter Results * OUTSIDE LAB RESULTS (01/24/2024) 01/24/2024 [facility] documented in this encounter Care Teams Drapery Counselor Relationship Specialty Start Date End Date Krystian Palomo MD [address] [place] [address] [place] [address] PCP - General Family Medicine 12/22/23 documented as of this encounter
--- OUTSIDE RECORDS SUMMARY | 2024-02-28 05:08 | External Medical Summary ---
Author Name Unknown Address Unknown Organization [id number]:LAB[facility]ATORY [facility] - [address] [facility] [address] [place] [address] Laboratory Report Ordering Provider Test Date Status HERIBERTO RAO 02/08/2024 13:27:01 Final Observation Date Value Abnormality Reference (Units ) Status Potassium, Urine 02/08/2024 13:27:01 52.5 (mm ol/L) Final Performing Location [facility] - [address] [place] [address]
--- OUTSIDE RECORDS SUMMARY | 2024-02-28 05:08 | External Medical Summary | Summary of Care ---
Author Name Unknown Organization [facility] Address [address] [facility] [place] [address] Phone [phone] Care Team Providers Care Pot Builder Name Role Phone Krystian Palomo MD Primary Care Provide r Encounter Details Date Type Department Care Team (Late st Contact Info) Description 01/25/2024 Orders Only Gastroenterology, [facility] [address] [place] [address] Ren Pineda CRNP [address] [place] [address] Cirrhosis of liver with ascites, unspecified hepatic cirrhosis type (HCC) Allergies Active Allergy Reactions Criticality Noted [...] GONZALES 07/05/2023 Hepatic encephalopathy 03/28/2022 Overview: admitted [facility], ammonia 110 Aortic stenosis, moderate 01/21/2022 Thrombocytopenia [...] 02/08/2024 9:00 AM EDT Office Visit Gastroenterology, [facility] [address] [place] [address] Ren Pineda CRNP [address] [place] [address] 02/16/2024 8:45 AM EDT Imaging Radiology [facility] 1st Floor, [place] [address] [place] [address] 02/28/2024 8:30 AM EDT Imaging [facility] 2nd Floor Cardiology, [place] [address] [place] [address] Gw, Excess Time Radiology [address] [place] [address] 06/24/2024 8:20 AM EDT Office Visit Family Medicine [address] [place] [phone] Krystian Palomo MD [address] [place] [address] [place] [address] Scheduled Procedures Name Priority Associated Diagnoses Date/Ti [...] this encounter Medical Devices Implanted Type Area Vamp Cut Out Worker Device Identifier Shelf Expiration Date Model / Serial / Lot Lipiodol Injection - [id number] Implanted:Qty: 1 on 08/02/2023 at [facility] [employer] 04/28/2026 [id number] Syr Pf 2ml Embospheres 100-300 - [id number] Implanted:Qty: 1 on 08/02/2023 at [facility] [employer] [id number] 02/26/2026 [id number] / / [id number] documented as of this encounter Procedures Procedure Name Priority Date/Time Associated Diagnosis Comments IR PARACENTESIS Routine 01/24/2024 Cirrhosis of liver with ascites, unspecified hepatic cirrhosis type (HCC) CHEMISTRY-OUTSIDE Routine 01/24/2024 documented in this encounter Results * (ABNORMAL) CHEMISTRY-OUTSIDE (01/24/2024) Not all results display below - see scan for full detail OUTSIDE LAB (SEE SCANNED REPORT) Comment:SCAN INCLUDES - BMP, CBCD CREATININE-OUTSID E LAB 0.89 0.6 - 1.4 MG/DL OUTSIDE LAB (SEE SCANNED REPORT) EGFR-OUTSIDE LAB 93.6 ML/MIN/1.7 3M2 OUTSIDE LAB (SEE SCANNED REPORT) POTASSIUM-OUTSIDE LAB 3.6 3.5 - 5.1 MMOL/L OUTSIDE LAB (SEE SCANNED REPORT) GLUCOSE-OUTSIDE LAB 239(A) 70 - 99 MG/DL OUTSIDE LAB (SEE SCANNED REPORT) HOURS FASTING OUTSID E LAB (SEE SCANNED REPORT) TRIGLYCERIDES-OUT SIDE LAB OUTSIDE LAB (SEE SCANNED REPORT) CHOLESTEROL-OUTSI DE LAB OUTSIDE LAB (SEE SCANNED REPORT) HDL-OUTSIDE LAB OUTS LESLIE LAB (SEE SCANNED REPORT) CHOL/HDL RATIO-OUTSIDE LAB OUTSIDE LA B (SEE SCANNED REPORT) LDL (CALCULATED)-OUTS LESLIE LAB OUTSIDE LAB (SEE SCANNED REPORT) LDL (DIRECT MEASURE)-OUTSIDE LAB OUTSIDE LAB (SEE SCANNED REPORT) HEMOGLOBIN, D9O-XRHQOCI LAB OUTSIDE LAB (SEE SCANNED REPORT) PHOSPHORUS-OUTSID E LAB OUTSIDE LAB (SEE SCANNED REPORT) PTH-OUTSIDE LAB OUTS LESLIE LAB (SEE SCANNED REPORT) MICROALBUMIN RATIO-OUTSIDE LAB OUTSIDE LA B (SEE SCANNED REPORT) PROTEIN, UA-OUTSIDE LAB OUTSIDE LAB (SEE SCANNED REPORT) HGB 11.3(A) 14.0 - 18.0 G/DL OUTSIDE LAB (SEE SCANNED REPORT) 01/24/2024 [facility] OUTSIDE LAB (SEE SCANNED REPORT) * IR PARACENTESIS (01/24/2024) Anatomical Region Laterality Modality Any Other 01/24/2024 Ren [facility] SPECIAL PROCED URES documented in this encounter Visit Diagnoses Diagnosis Cirrhosis of liver with ascites, unspecified hepatic cirrhosis type (HCC) documented in this encounter Care Teams Pot Builder Relationship Specialty Start Date End Date Krystian Palomo MD [address] [place] [address] [place] [address] PCP - General Family Medicine 12/22/23 documented as of this encounter
--- OUTSIDE RECORDS SUMMARY | 2024-02-28 05:08 | External Medical Summary ---
Author Name Unknown Address Unknown Organization [id number]:LABORATORY [facility] [place] [address] - [address] [place] [address] Laboratory Report Ordering Provider Test Date Status HERIBERTO RAO 02/08/2024 09:44:48 Final Observation Date Value Abnormality Reference (Units ) Status WBC, Total 02/08/2024 09:44:48 5.61 4.00-10.8 0 (K/uL) Final RBC 02/08/2024 09:44:48 3.21 4.50-5.25 (M/uL) Final Hemoglobin 02/08/2024 09:44:48 11.6 Below low normal 14 .0-16.8 (g/dL) Final HCT 02/08/2024 09:44:48 33.6 Below low normal 40. 0-48.4 (%) Final MCV 02/08/2024 09:44:48 104.7 82.0-99.5 (fL) Final MCH 02/08/2024 09:44:48 36.1 27.0-34.0 (pg) Final MCHC 02/08/2024 09:44:48 34.5 32.0-36.0 (g/dL) Final RDW 02/08/2024 09:44:48 14.9 11.5-15.5 (%) Final Platelets 02/08/2024 09:44:48 74 Below low normal 140 -400 (K/uL) Final MPV 02/08/2024 09:44:48 11.7 6.6-11.1 ( fL) Final Performing Location [facility] - [address] [place] [address]
--- OUTSIDE RECORDS SUMMARY | 2024-02-28 05:08 | External Medical Summary ---
Author Name Unknown Address Unknown Organization K01:LABORATORY [facility] - [address] [facility] [place] [address] Laboratory Report Ordering Provider Test Date Status HERIBERTO RAO 02/08/2024 13:27:01 Final Observation Date Value Abnormality Reference (Units ) Status Sodium, Urine 02/08/2024 13:27:01 116 (mmol/ L) Final Performing Location LABORATORY [facility] - [address] [place] [address]
--- OUTSIDE RECORDS SUMMARY | 2024-02-28 05:08 | External Medical Summary ---
Author Name Unknown Address Unknown Organization K0G:[facility]ORY [facility] [address] - [address] [place] [address] Laboratory Report Ordering Provider Test Date Status HERIBERTO RAO 02/08/2024 09:44:48 Final Warfarin Therapy
INR: 2 .0-3.0 conventional anticoagulation
INR: 2.5- 3.5 high intensity anticoagulation Observation Date Value Abnormality Reference (Units ) Status PT 02/08/2024 09:44:48 21.8 Above high normal 11 .6-15.2 (seconds) Final INR 02/08/2024 09:44:48 1.9 Above high normal 0. 8-1.2 Final Performing Location [facility]ATORY [facility] [address] - [address] [place] [address]
--- OUTSIDE RECORDS SUMMARY | 2024-02-28 05:09 | External Medical Summary | Summary of Care ---
Author Name Unknown Organization [facility] Address [address] [place] [address] Phone [phone] Care Team Providers Care Community Relations Rep Name Role Phone Krystian Palomo MD Primary Care Provide r Reason for Referral * Precert (Within 10 days (routine)) - Pending Review Specialty Diagnoses / Procedures Referred By Contcharles t Referred To Contact Radiology Diagnoses Cirrhosis of liver with ascites, unspecified hepatic cirrhosis type (HCC) Procedures IR PARACENTESIS [facility] [address] [facility] [address] Referral ID Status Reason Start Date Expiration Date V isits Requested Visits Authorized [id number] Pending Review 01/24/2024 24 24 Reason for Visit * Reason Onset Date Comments Follow Up 01/22/2024 Encounter Details Date Type Department Care Team (Late st Contact Info) Description 01/22/2024 Telephone Gastroenterology, [facility] [address] [place] [address] Services, Scheduling [address] [place] [address] Follow Up Allergies Active Allergy Reactions Criticality Noted Date Comments Aspirin 01/28/2022 Other reaction(s): bloody nose Salicylates 08/08/2001 nose bleeds documented as of this encounter (statuses as of 01/24/2024) Medications Medication Sig Dispensed Refills Start Date End Date Status Multivitamin Adult Oral Tablet daily . 0 10/12/20 21 Active Vitamin C 1000 MG Oral Tablet daily . 0 10/12/20 21 Active metFORMIN HCl 500 MG Oral Tablet (Glucophage)Indica tions:Type 2 diabetes mellitus with hemoglobin A1c goal of less than 7.0% (HCC) TAKE ONE TABLET BY MOUTH TWICE DAILY WITH MORNING AND EVENING MEALS 180 Tablet 3 05/31/20 22 Active Lactulose 10 GM/15ML Oral Solution (Constulose)Indica tions:Hepatic encephalopathy (HCC) TAKE 45ML THREE TIMES DAILY,IN THE MORNING, AT NOON, AND BEDFORE BEDTIME 4050 mL 5 11/07/19 23 Active Glimepiride 1 MG Oral Tablet (Amaryl) TAKE ONE TABLET BY MOUTH EVERY DAY WITH THE FIRST MAIN MEAL OF THE DAY FOR DIABETES 90 Tablet 1 11/28/19 23 Active Atorvastatin Calcium 20 MG Oral Tablet (Lipitor)Indicatio ns:Hyperlipidemia with target LDL less than 100 Take 1 Tablet by mouth in the morning. 90 Tablet 1 07/11/20 23 Active Omeprazole 20 MG Oral Capsule Delayed Release (PriLOSEC)Indicati ons:GERD (gastroesophageal reflux disease) Take 1 Capsule by mouth in the morning. 1 hour before the first meal of the day. 90 Capsule 3 07/17/20 23 Active Mupirocin 2 % External Ointment (Bactroban) Apply topically to affected area 3 times a day. At hospital discharge 0 08/29/20 23 Active Tamsulosin HCl 0.4 MG Oral Capsule (Flomax)Indication s:Urinary retention One daily 30 Capsule 5 10/24/20 23 Active Lisinopril 5 MG Oral Tablet (Prinivil) Take 1 Tablet by mouth in the morning. In the morning.. 0 10/26/20 23 Active Albumin Human 25 % Intravenous Solution Give 50Gms after paracentesis (if more than 5L are removed). May run at 100/hr. 100 mL 0 11/09/19 24 Active Furosemide 40 MG Oral Tablet (Lasix) Take 1 Tablet by mouth in the morning. 30 Tablet 3 11/09/19 24 Active rifAXIMin 550 MG Oral Tablet (Xifaxan) TAKE ONE TABLET BY MOUTH EVERY MORNING AND ONE TABLET AT BEDTIME 60 Tablet 12 11/24/19 24 Active Spironolactone 100 MG Oral Tablet (Aldactone) Take 1 Tablet by mouth in the morning. 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 90 Tablet 1 07/11/20 23 024 Discontinued Spironolactone 25 MG Oral Tablet (Aldactone) Take 2 Tablets by mouth in the morning and 2 Tablets before bedtime. 180 Tablet 1 10/26/20 23 024 Discontinued Carvedilol 6.25 MG Oral Tablet (Coreg) Take 1 Tablet by mouth in the morning and 1 Tablet before bedtime. With food.. 0 024 Discontinued Spironolactone 50 MG Oral Tablet (Aldactone) Take 1 Tablet by mouth in the morning. 30 Tablet 2 11/09/19 24 024 Discontinued Albuminex 25 % Intravenous Solution (Albumin Human-kjda) If paracentesis yields a total volume of more than 3 liters of fluid give 25% albumin as follows: 3 L - 5 L - Give 1 unit albumin (25 gm in 100 ml) 5 L - 7.5 L - Give 2 units albumin (25 gm in 100 ml x 2) 7.5 L - 12 L - Give 3 units albumin 100 mL 5 01/05/20 24 024 Discontinued(Re fill) documented as of this encounter (statuses as of 01/24/2024) Active Problems Problem Noted Date Diagnosed Date BPH without obstruction/lower urinary tract symp toms 12/22/2023 BMI 36.0-36.9,adult 10/24/2023 Overview: 266 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 * Telephone Encounter - Ren Pineda CRNP - 01/24/2024 11:09 AM EDT Signed. Please fax * Addendum Note - Ren Pineda CRNP - 01/24/2024 11:09 AM EDTAddended by: REN PINEDA on: 01/24/2024 11:09 AM Modules accepted: Orders * Addendum Note - Chayito Anders RN - 01/23/2024 3:53 PM EDTAddended by: CHAYITO ANDERS on: 01/23/2024 03:53 PM Modules accepted: Orders * Telephone Encounter - Chayito Anders RN - 01/23/2024 3:51 PM EDT New orders pended for provider to sign, Then needs faxed to [facility] # number below Fax BUN lab order to lab also. * Telephone Encounter - Ren Pineda CRNP - 01/23/2024 1:46 PM EDT I spoke with Radiology. They tell me that his last paracentesis was on January 07, so without new orders he would have to wait until February 07. Nursing, please place new orders this time for every 2weeks (same amount, same albumin orders, same CBC PT and I orders). Patient can cancel if not needed. Additionally, message sent to patient to increase his spironolactone and recheck BMP in 1 week after that dosing change. Please fax BNP order to [facility] outpatient lab. * Telephone Encounter - Lissy Butler OSA - 01/22/2024 3:24 PM EDT [phone] (fax) [phone] (phone) IR calling to see if the patient can have the paracentesis. Patient is due in January but would like it done sooner. They stated if he can have it done sooner to please have a new order placed. Thank you documented in this encounter Plan of Treatment Upcoming Encounters Date Type Department Care Team (Late st Contact Info) Description 02/08/2024 9:00 AM EDT Office Visit Gastroenterology, [facility] [address] [address] Ren Pineda CRNP [address] [address] 02/16/2024 8:45 AM EDT Imaging Radiology [facility] 1st Floor, [place] [address] [address] 02/28/2024 8:30 AM EDT Imaging [facility] 2nd Floor Cardiology, [place] [address] [address] Gw, Excess Time Radiology [address] [address] 06/24/2024 8:20 AM EDT Office Visit [address] [phone] Krystian Palomo MD [address] [place] [address] [place] [address] Scheduled Orders Name Type Priority Associated Diagnoses Orde r Schedule BASIC METABOLIC PANEL Lab Routine Cirrhosis of liver with ascites, unspecified hepatic cirrhosis type (HCC) Expected: 01/30/2024, Expires: 01/22/2025 IR PARACENTESIS Medical Imaging Routine Cirrhosis of liver with ascites, unspecified hepatic cirrhosis type (HCC) Every 2 Weeks for 24 Occurrences starting 01/24/2024 until 02/22/2025 APTT Lab Routine Cirrhosis of liver with ascites, unspecified hepatic cirrhosis type (HCC) Every 2 Weeks for 24 Occurrences starting 01/24/2024 until 01/22/2025 PT INR Lab Routine Cirrhosis of liver with ascites, unspecified hepatic cirrhosis type (HCC) Every 2 Weeks for 24 Occurrences starting 01/24/2024 until 01/22/2025 CBC WITH WBC DIFFERENTIAL Lab Routine Cirrhosis of liver with ascites, unspecified hepatic cirrhosis type (HCC) Expected: 01/24/2024, Expires: 01/22/2025 Scheduled Procedures Name Priority Associated Diagnoses Date/Ti [...] 09/20/2023, , 03/16/2021, Additional history exists GFR 11/21/2024 11/21/2023, 10/30, 09/18/2023, Additional history exists Lipid Panel 09/18/2028 09/18/2023, [...] this encounter Medical Devices Implanted Type Area Coremaker Bench Device Identifier Shelf Expiration Date Model / Serial / Lot Lipiodol Injection - [id number] Implanted:Qty: 1 on 08/02/2023 at [facility] [employer] 04/28/2026 [id number] Syr Pf 2ml Embospheres 100-300 - [id number] Implanted:Qty: 1 on 08/02/2023 at [facility] [employer] [id number] 02/26/2026 S220 / / [id number] documented as of this encounter Visit Diagnoses Diagnosis Cirrhosis of liver with ascites, unspecified hepatic cirrhosis type (HCC)- Primary documented in this encounter Care Teams Community Relations Rep Relationship Specialty Start Date End Date Krystian Palomo MD [address] [place] [address] [place] [address] PCP - General Family Medicine 12/22/23 documented as of this encounter
--- OUTSIDE RECORDS SUMMARY | 2024-02-28 05:09 | External Medical Summary | Summary of Care ---
Author Name Unknown Organization [facility] Address [address] [place] [address] Phone [phone] Care Team Providers Care Electrical Technician Name Role Phone Krystian Palomo MD Primary Care Provide r Reason for Referral * Precert (Within 10 days (routine)) - Pending Review Specialty Diagnoses / Procedures Referred By Contcharles t Referred To Contact Radiology Diagnoses Cirrhosis of liver with ascites, unspecified hepatic cirrhosis type (HCC) Procedures IR PARACENTESIS Ren Pineda CRNP [address] [facility] [address] Referral ID Status Reason Start Date Expiration Date V isits Requested Visits Authorized [id number] Pending Review 01/24/2024 24 24 Reason for Visit * Reason Onset Date Comments Follow Up 01/22/2024 Encounter Details Date Type Department Care Team (Late st Contact Info) Description 01/22/2024 Telephone Gastroenterology, [facility] [address] [place] [address] Services, Scheduling [address] [place] [address] Follow Up Allergies Active Allergy Reactions Criticality [...] GONZALES 07/05/2023 Hepatic encephalopathy 03/28/2022 Overview: admitted [facility], ammonia 110 Aortic stenosis, moderate [...] provider to sign, Then needs faxed to [facility] # number below Fax BUN [...] dosing change. Please fax BNP order to [facility] outpatient lab. * Telephone Encounter - Lissy Butler OSA - 01/22/2024 3:24 PM EDT [phone] (fax) [phone] (phone) IR calling to see if the [...] 02/08/2024 9:00 AM EDT Office Visit Gastroenterology, [facility] [address] [facility] [place] [address] Ren Pineda CRNP [address] [place] [address] 02/16/2024 8:45 AM EDT Imaging Radiology [facility] 1st Floor, [place] [address] [place] [address] 02/28/2024 8:30 AM EDT Imaging [facility] 2nd Floor Cardiology, [place] [address] [facility] [place] [address] Gw, Excess Time Radiology [address] [place] [address] 06/24/2024 8:20 AM EDT [facility] [address] [place] [address] [place] [phone] Krystian Palomo MD [address] [place] [address] [place] [address] Scheduled Orders Name Type Priority Associated Diagnoses [...] this encounter Medical Devices Implanted Type Area Hydrogen Treater Device Identifier Shelf Expiration Date Model / Serial / Lot Lipiodol Injection - [id number] Implanted:Qty: 1 on 08/02/2023 at [facility] [employer] 04/28/2026 [id number] Syr Pf 2ml Embospheres 100-300 - [id number] Implanted:Qty: 1 on 08/02/2023 at [facility] [employer] [id number] 02/26/2026 [facility] / / [id number] documented as of this encounter Visit Diagnoses Diagnosis Cirrhosis of liver with ascites, unspecified hepatic cirrhosis type (HCC)- Primary documented in this encounter Care Teams Electrical Technician Relationship Specialty Start Date End Date Krystian Palomo MD [address] [place] [address] [place] [address] PCP - General Family Medicine 12/22/23 documented as of this encounter
--- OUTSIDE RECORDS SUMMARY | 2024-02-28 05:09 | External Medical Summary | Summary of Care ---
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 0 1 Active Vitamin C 1000 MG Oral Tablet daily . 0 1 Active metFORMIN HCl 500 MG Oral Tablet (Glucophage)Indica tions:Type 2 diabetes mellitus with hemoglobin A1c goal of less than 7.0% (HCC) TAKE ONE TABLET BY MOUTH TWICE DAILY WITH MORNING AND EVENING MEALS 180 Tablet 3 2 Active Lactulose 10 GM/15ML Oral Solution (Constulose)Indica tions:Hepatic encephalopathy (HCC) TAKE 45ML THREE TIMES DAILY,IN THE MORNING, AT NOON, AND BEDFORE BEDTIME 4050 mL 5 3 Active Glimepiride 1 MG Oral Tablet (Amaryl) TAKE ONE TABLET BY MOUTH EVERY DAY WITH THE FIRST MAIN MEAL OF THE DAY FOR DIABETES 90 Tablet 1 3 Active Atorvastatin Calcium 20 MG Oral Tablet (Lipitor)Indicatio ns:Hyperlipidemia with target LDL less than 100 Take 1 Tablet by mouth in the morning. 90 Tablet 1 3 Active Omeprazole 20 MG Oral Capsule Delayed Release (PriLOSEC)Indicati ons:GERD (gastroesophageal reflux disease) Take 1 Capsule by mouth in the morning. 1 hour before the first meal of the day. 90 Capsule 3 3 Active Mupirocin 2 % External Ointment (Bactroban) Apply topically to affected area 3 times a day. At hospital discharge 0 3 Active Tamsulosin HCl 0.4 MG Oral Capsule (Flomax)Indication s:Urinary retention One daily 30 Capsule 5 3 Active Lisinopril 5 MG Oral Tablet (Prinivil) Take 1 Tablet by mouth in the morning. In the morning.. 0 3 Active Albumin Human 25 % Intravenous Solution Give 50Gms after paracentesis (if more than 5L are removed). May run at 100/hr. 100 mL 0 4 Active Furosemide 40 MG Oral Tablet (Lasix) Take 1 Tablet by mouth in the morning. 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 90 Tablet 1 3 01/24/20 24 Discontinued Carvedilol 6.25 MG Oral Tablet (Coreg) Take 1 Tablet by mouth in the morning and 1 Tablet before bedtime. With food.. 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 07/05/2023 Hepatic encephalopathy 03/28/2022 Overview: admitted [facility], ammonia 110 Aortic stenosis, moderate 01/21/2022 Thrombocytopenia [...] encounter Miscellaneous Notes * Telephone Encounter - Krystian Palomo MD - 01/24/2024 9:24 AM EDT Signed Prescriptions: Disp Refills Carvedilol 6.25 MG Oral Tablet (Coreg) 180 Ta*1 Sig: TAKE ONE TABLET BY MOUTH TWICE DAILY with food Authorizing Provider: KRYSTIAN PALOMO Allopurinol 300 MG Oral Tablet (Zyloprim) 90 Tab*1 Sig: TAKE ONE TABLET BY MOUTH IN THE MORNING Authorizing Provider: KRYSTIAN PALOMO Ordering User: FARIDEH SÁNCHEZ * Telephone Encounter - Farideh Sánchez RPh - 01/24/2024 9:08 AM EDTPending Prescriptions: Disp Refills Carvedilol 6.25 MG Oral Tablet (Coreg) 180 Ta*1 Sig: TAKE ONE TABLET BY MOUTH TWICE DAILY with food Signed Prescriptions: Disp Refills Allopurinol 300 MG Oral Tablet (Zyloprim) 90 Tab*1 Sig: TAKE ONE TABLET BY MOUTH IN THE MORNING Authorizing Provider: KRYSTIAN PALOMO Ordering User: FARIDEH SÁNCHEZ * Telephone Encounter - Farideh Sánchez RPh - 01/24/2024 9:07 AM EDT Pharmacists cannot authorize refills for meds listed as "historical" in chart. Please approve if appropriate. Thanks, Farideh Sánchez, PharmD Clinical Pharmacist [facility] ([facility]) [phone] 01/24/2024, 9:07 AM * Telephone Encounter - Farideh Sánchez RPh - 01/24/2024 9:06 AM EDT Pending Prescriptions: Disp Refills Carvedilol 6.25 MG Oral Tablet (Coreg) [P*180 Ta*1 Sig: TAKE ONE TABLET BY MOUTH TWICE DAILY with food Allopurinol 300 MG Oral Tablet (Zyloprim)*90 Tab*1 Sig: TAKE ONE TABLET BY MOUTH IN THE MORNING Last Visit: 12/22/2023 (in office), Visit date not found (telemedicine) Next Visit: 06/24/2024 If no future appointments scheduled, and last appointment is greater than a year ago, please schedule patient for a follow-up appointment Last date the medication was ordered: Pharmacy: [facility], [address] [place] Is this request for a controlled substance? No Urine Drug Screen: Results for orders placed or performed in visit on 09/18/23 TOXICOLOGY, URINE SCREEN W/ CONFIRMATION Result Value Amphetamines Screen, U Negative Benzodiazepines Screen, U Negative Cannabinoids Screen, U Negative Cocaine Metabolite Screen, U Negative Fentanyl Screen, U Negative Hydrocodone Screen, U Negative Methadone Metabolite Screen, U Negative Morphine/Codeine Screen, U Negative Oxycodone Screen, U Negative Narrative Cutoff Concentrations: Drug Level Amphetamines 500 ng/mL Benzodiazepines 100 ng/mL Cannabinoids 50 ng/mL Cocaine Metabolite 150 ng/mL Fentanyl 1 ng/mL Hydrocodone / Hydromorphone 300 ng/mL Methadone Metabolite 100 ng/mL Morphine / Codeine 300 ng/mL Oxycodone / Oxymorphone 100 ng/mL Screening results are presumptive and can only be used for medical purposes. Positive screening results are reflexed to confirmatory testing. Patient Phone Numbers Labs: Lab Results Component Value Date/Time CREAT 1.0 11/21/2023 11:30 AM CREAT 0.94 04/23/2021 12:00 AM CREAT 0.9 11/24/2020 08:53 AM POTASSIUM 3.5 11/21/2023 11:30 AM POTASSIUM 3.8 04/23/2021 12:00 AM POTASSIUM 3.7 11/24/2020 08:53 AM TSH 1.54 09/18/2023 11:41 AM TSH 1.34 08/25/2010 09:49 AM LDLCALC 101 09/18/2023 11:41 AM LDLCALC 62 11/24/2020 08:53 AM LDLDIRECT NOT APPLICABLE 11/24/2020 08:53 AM ALT 41 11/21/2023 11:30 AM ALT 59 (H) 05/06/2003 08:20 AM HGBA1C 7.0 (H) 01/05/2024 08:22 AM HGBA1C 5.8 (H) 11/24/2020 08:53 AM documented in this encounter Plan of Treatment Upcoming Encounters Date Type Department Care Team (Late st Contact Info) Description 02/08/2024 9:00 AM EDT Office Visit Gastroenterology, [facility] [address] [facility] [place] [address] Ren Pineda CRNP [address] [place] [address] 02/16/2024 8:45 AM EDT Imaging Radiology [facility] 1st Floor, [place] [address] [facility] [place] [address] 02/28/2024 8:30 AM EDT Imaging [facility] 2nd Floor Cardiology, [place] [address] [facility] [place] [address] Gw, Excess Time Radiology [address] [facility] [place] [address] 06/24/2024 8:20 AM EDT Office Visit Family Medicine [address] [place] [address] Krystian Palomo MD [address] [place] [address] [place] [address] Scheduled Procedures Name Priority Associated Diagnoses Date/Ti [...] this encounter Medical Devices Implanted Type Area Academic Services Professional Device Identifier Shelf Expiration Date Model / Serial / Lot Lipiodol Injection - [id number] Implanted:Qty: 1 on 08/02/2023 at [facility] [employer] 04/28/2026 73202-180 1 -[id number] Syr Pf 2ml Embospheres 100-300 - [id number] Implanted:Qty: 1 on 08/02/2023 at [facility] [employer] [id number] 02/26/2026 [id number] / / [id number] documented as of this encounter Visit Diagnoses Diagnosis Essential (primary) hypertension Unspecified essential hypertension 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
--- OUTSIDE RECORDS SUMMARY | 2024-02-28 05:09 | External Medical Summary | Summary of Care ---
Author Name Unknown Organization [facility] Address [address] [place] [address] Phone [phone] Care Team Providers Care Block Cableman Name Role Phone Krystian Palomo MD Primary Care Provide r Reason for Visit * Reason Onset Date Comments Follow Up 01/22/2024 Encounter Details Date Type Department Care Team (Late st Contact Info) Description 01/22/2024 Telephone Gastroenterology, [facility] 132 [facility] [place] [address] Services, Scheduling [address] [place] [address] Follow Up Allergies Active Allergy Reactions Criticality Noted Date Comments Aspirin 01/28/2022 Other reaction(s): bloody nose Salicylates 08/08/2001 nose bleeds documented as of this encounter (statuses as of 01/23/2024) Medications Medication Sig Dispensed Refills Start Date [...] FOR DIABETES 90 Tablet 1 3 Active Allopurinol 300 MG Oral Tablet (Zyloprim)Indicati ons: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 90 Tablet 1 3 Active Atorvastatin Calcium [...] One daily 30 Capsule 5 3 Active Carvedilol 6.25 MG Oral Tablet (Coreg) Take 1 Tablet by mouth in the morning and 1 Tablet before bedtime. With food.. 0 Active Lisinopril 5 MG Oral Tablet (Prinivil) [...] units albumin 100 mL 5 4 Active Spironolactone 100 MG Oral Tablet (Aldactone) Take 1 Tablet by mouth in the morning. 30 Tablet 5 4 Active Spironolactone 25 MG Oral Tablet (Aldactone) Take 2 Tablets by mouth in the morning and 2 Tablets before bedtime. 180 Tablet 1 3 01/23/20 24 Discontinued Spironolactone 50 MG Oral Tablet (Aldactone) Take 1 Tablet by mouth in the morning. 30 Tablet 2 4 01/23/20 24 Discontinued documented as of this encounter (statuses as of 01/23/2024) Active Problems Problem Noted Date Diagnosed Date [...] as of this encounter (statuses as of 01/23/2024) Resolved Problems Problem Noted Date Diagnosed Date [...] as of this encounter (statuses as of 01/23/2024) Immunizations Name Administration Dates Next Due COVID-19 [...] as of this encounter Miscellaneous Notes * Addendum Note - Chayito Anders RN - 01/23/2024 3:53 PM EDTAddended by: CHAYITO ANDERS on: 01/23/2024 03:53 PM Modules accepted: Orders * Telephone Encounter - Chayito Anders RN - 01/23/2024 3:51 PM EDT New orders pended for provider to sign, Then needs faxed to [facility] # number below Fax BUN lab order [...] dosing change. Please fax BNP order to [facility] outpatient lab. * Telephone Encounter - Lissy Butler OSA - 01/22/2024 3:24 PM EDT [phone] (fax) [phone] (phone) IR calling to see if the [...] 02/08/2024 9:00 AM EDT Office Visit Gastroenterology, [facility] 132 [place] [address] Ren Pineda CRNP 132 [place] [address] 02/16/2024 8:45 AM EDT Imaging Radiology [facility] 1st Floor, [place] 132 [place] [address] 02/28/2024 8:30 AM EDT Imaging [facility] 2nd Floor Cardiology, [place] 132 [place] [address] Gw, Excess Time Radiology 132 [place] [address] 06/24/2024 8:20 AM EDT Office Visit [address] [phone] Krystian Palomo MD [address] [place] [address] [place] [address] Scheduled Orders Name Type Priority Associated Diagnoses Orde r Schedule BASIC METABOLIC PANEL Lab Routine Cirrhosis of liver with ascites, unspecified hepatic cirrhosis type (HCC) Expected: 01/30/2024, Expires: 01/22/2025 Scheduled Procedures Name Priority Associated [...] this encounter Medical Devices Implanted Type Area Sampler And Test Preparer Device Identifier Shelf Expiration Date Model / Serial / Lot Lipiodol Injection - [id number] Implanted:Qty: 1 on 08/02/2023 at [facility] [employer] 04/28/2026 84736-257 1 [id number] Syr Pf 2ml Embospheres 100-300 - [id number] Implanted:Qty: 1 on 08/02/2023 at [facility] [email or web address] [id number] 02/26/2026 S220 / / [id number] documented as of this encounter Visit Diagnoses Diagnosis Cirrhosis of liver with ascites, unspecified hepatic cirrhosis type (HCC)- Primary documented in this encounter Care Teams Block Cableman Relationship Specialty Start Date End Date Krystian Palomo MD [address] [place] [address] [place] [phone] PCP - General Family Medicine 12/22/23 documented as of this encounter
--- OUTSIDE RECORDS SUMMARY | 2024-02-28 05:09 | External Medical Summary | Summary of Care ---
Author Name Unknown Organization [facility] Address [address] [place] [address] Phone [phone] Care Team Providers Care Asbestos Cement Sheet Supervisor Name Role Phone Krystian Palomo MD Primary Care Provide r Reason for Referral * Precert (Within 10 days (routine)) - Pending Review Specialty Diagnoses / Procedures Referred By Contcharles t Referred To Contact Radiology Diagnoses Cirrhosis of liver with ascites, unspecified hepatic cirrhosis type (HCC) Procedures IR PARACENTESIS Ren [facility]ineda CRNP [address] [facility] [address] Referral ID Status Reason Start Date Expiration Date V isits Requested Visits Authorized [id number] Pending Review 01/24/2024 24 24 Reason for Visit * Reason Onset Date Comments Follow Up 01/22/2024 Encounter Details Date Type Department Care Team (Late st Contact Info) Description 01/22/2024 Telephone Gastroenterology, [facility] [address] [place] [address] Services, Scheduling [address] [place] [address] Follow Up Allergies Active Allergy Reactions Criticality [...] GONZALES 07/05/2023 Hepatic encephalopathy 03/28/2022 Overview: admitted [facility], [...] encounter Miscellaneous Notes * Addendum Note - Ren Pineda CRNP [...] provider to sign, Then needs faxed to [facility] # number below Fax BUN lab order [...] dosing change. Please fax BNP order to [facility] outpatient lab. * Telephone Encounter - Lissy Butler OSA - 01/22/2024 3:24 PM EDT [phone] (fax) [phone] (phone) IR calling to see if the [...] 02/08/2024 9:00 AM EDT Office Visit [facility]astroenterology, [facility] [place] [address] Ren Pineda CRNP [address] [place] [address] 02/16/2024 8:45 AM EDT Imaging Radiology [facility] 1st Floor, [place] [address] [facility] [place] [address] 02/28/2024 8:30 AM EDT Imaging [facility] 2nd Floor Cardiology, [place] [address] [facility] [place] [address] Gw, Excess Time Radiology [address] [facility] [place] [address] 06/24/2024 8:20 AM EDT Office Visit Family Medicine [address] [place] [address] Krystian Palomo MD [address] [place] [address] [place] [address] Scheduled Orders Name Type Priority Associated Diagnoses [...] this encounter Medical Devices Implanted Type Area Escalator Service Mechanic Device Identifier Shelf Expiration Date Model / Serial / Lot Lipiodol Injection - [id number] Implanted:Qty: 1 on 08/02/2023 at [facility] [employer] 04/28/2026 00160-104 1 [id number] Syr Pf 2ml Embospheres 100-300 - [id number] Implanted:Qty: 1 on 08/02/2023 at [facility] [employer] [id number] 02/26/2026 S220 / / [id number] documented as of this encounter Visit Diagnoses Diagnosis Cirrhosis of liver with ascites, unspecified hepatic cirrhosis type (HCC)- Primary documented in this encounter Care Teams Asbestos Cement Sheet Supervisor Relationship Specialty Start Date End Date Krystian Palomo MD [address] [place] [address] [place] [phone] PCP - General Family Medicine 12/22/23 documented as of this encounter
--- OUTSIDE RECORDS SUMMARY | 2024-02-28 05:10 | External Medical Summary | Summary of Care ---
Author Name Unknown Organization [facility] [address] [facility] [address] Phone [phone] Care Team Providers Care Fermentologist Name Role Phone Krystian Palomo MD Primary Care Provide r Encounter Details Date Type Department Care Team (Late st Contact Info) Description 01/11/2024 9:30 AM EDT Procedure Only Endoscopy, [facility] 132 [facility] [place] [address] Jayla Armstrong MD [address] [place], [place] [address] [id number] Abnormal CT of the abdomen* Allergies Active Allergy Reactions Criticality Noted Date Comments Aspirin 01/28/2022 Other reaction(s): bloody nose Salicylates 08/08/2001 nose bleeds documented as of this encounter (statuses as of 01/15/2024) Medications Medication Sig Dispensed Refills Start Date [...] FOR DIABETES 90 Tablet 1 11/28/2022 Active Allopurinol 300 MG Oral Tablet (Zyloprim)Indication [...] One daily 30 Capsule 5 10/24/2023 Active Spironolactone 25 MG Oral Tablet (Aldactone) Take 2 Tablets by mouth in the morning and 2 Tablets before bedtime. 180 Tablet 1 10/26/2023 Active Carvedilol 6.25 MG Oral Tablet (Coreg) [...] the morning. 30 Tablet 3 11/09/2023 Active Spironolactone 50 MG Oral Tablet (Aldactone) Take 1 Tablet by mouth in the morning. 30 Tablet 2 11/09/2023 Active rifAXIMin 550 MG Oral Tablet (Xifaxan) TAKE ONE TABLET BY MOUTH EVERY MORNING AND ONE TABLET AT BEDTIME 60 Tablet 12 11/24/2023 Active Albuminex 25 % Intravenous Solution (Albumin [...] Give 3 units albumin 100 mL 5 01/05/2024 Active documented as of this encounter (statuses as of 01/15/2024) Active Problems Problem Noted Date Diagnosed Date BPH without obstruction/lower urinary tract symp toms 12/22/2023 BMI 36.0-36.9,adult 10/24/2023 Overview: 266 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 07/05/2023 Hepatic encephalopathy 03/28/2022 Overview: admitted [facility], ammonia 110 Aortic stenosis, moderate [...] as of this encounter (statuses as of 01/15/2024) Resolved Problems Problem Noted Date Diagnosed Date [...] as of this encounter (statuses as of 01/15/2024) Immunizations Name Administration Dates Next Due COVID-19 [...] 02/08/2024 9:00 AM EDT Office Visit Gastroenterology, [facility] [address] [place] [address] Ren Pineda CRNP 132 [place] [address] 02/16/2024 8:45 AM EDT Imaging Radiology [facility] 1st Floor, [place] [address] [place] [address] 02/28/2024 8:30 AM EDT Imaging [facility] 2nd Floor Cardiology, [place] [address] [place] [address] Gw, Excess Time Radiology 132 [place] [address] 06/24/2024 8:20 AM EDT Office Visit [facility] Medicine [address] [phone] Krystian Palomo MD [address] [place] [address] [place] [address] Scheduled Procedures Name Priority Associated Diagnoses Date/Ti [...] Additional history exists Hepatitis B Completed 12/06/2023, 0 03/2023, 06/06/2023, Additional history exists GARDASIL-HPV IMMUNIZATION SERIES Aged Out No longer eligible based on patient's age to complete this topic MENINGOCOCCAL (MENACTRA/MENVEO) Aged Out No longer eligible based on patient's age to complete this topic documented as of this encounter Medical Devices Implanted Type Area Manager Commercial Real Estate Device Identifier Shelf Expiration Date Model / Serial / Lot Lipiodol Injection - [id number] Implanted:Qty: 1 on 08/02/2023 at [facility] [employer] 04/28/2026 96694-323 1 [id number] Syr Pf 2ml Embospheres 100-300 - [id number] Implanted:Qty: 1 on 08/02/2023 at [facility] [employer] [id number] 02/26/2026 S220GH / / [id number] documented as of this encounter Procedures Procedure Name Priority Date/Time Associated Diagnosis Comments COLONOSCOPY 01/11/2024 documented in this encounter Results * COLONOSCOPY (01/11/2024) 01/11/2024 Jayla Armstrong MD GASTRO LOWER documented in this encounter Visit Diagnoses Diagnosis Abnormal CT of the abdomen- Primary Nonspecific (abnormal) findings on radiological and other examination of abdominal area, including retroperitoneum documented in this encounter Care Teams Fermentologist Relationship Specialty Start Date End Date Krystian Palomo MD [address] [place] [address] [place] [phone] PCP - General Family Medicine 12/22/23 documented as of this encounter
--- OUTSIDE RECORDS SUMMARY | 2024-02-28 05:10 | External Medical Summary | Summary of Care ---
Author Name Unknown Organization [facility] Address [address] [place] [address] Phone [phone] Care Team Providers Care Pugger Helper Name Role Phone Krystian Palomo MD Primary Care Provide r Reason for Visit * Reason Onset Date Comments Follow Up 01/22/2024 Encounter Details Date Type Department Care Team (Late st Contact Info) Description 01/22/2024 Telephone Gastroenterology, [facility] [address] [facility] [place] [address] Services, Scheduling [address] [place] [address] Follow Up Allergies Active Allergy Reactions Criticality [...] GONZALES 07/05/2023 Hepatic encephalopathy 03/28/2022 Overview: admitted [facility], ammonia 110 Aortic stenosis, moderate [...] encounter Miscellaneous Notes * Telephone Encounter - eRn Pineda CRNP - 01/23/2024 1:46 PM EDT [...] dosing change. Please fax BNP order to [facility] outpatient lab. * Telephone Encounter - Lissy Butler OSA - 01/22/2024 3:24 PM EDT [phone] (fax) [phone] (phone) IR calling to see if the [...] 02/08/2024 9:00 AM EDT Office Visit Gastroenterology, [facility] [address] [facility] [place] [address] Ren Pineda CRNP [address] [place] [address] 02/16/2024 8:45 AM EDT Imaging Radiology [facility] 1st Floor, [address] [place] [address] 02/28/2024 8:30 AM EDT Imaging [facility] 2nd Floor Cardiology, [address] [place] [address] Gw, Excess Time Radiology [address] [place] [address] [place] [address] 06/24/2024 8:20 AM EDT Office Visit Family Medicine [address] [place] [address] Krystian Palomo MD [address] [place] [address] [place] [address] Scheduled Orders Name Type Priority Associated Diagnoses [...] this encounter Medical Devices Implanted Type Area Rotary Surface Grinder Device Identifier Shelf Expiration Date Model / Serial / Lot Lipiodol Injection - [id number] Implanted:Qty: 1 on 08/02/2023 at [facility] [employer] 04/28/2026 96829-206 1 [id number] Syr Pf 2ml Embospheres 100-300 - [id number] Implanted:Qty: 1 on 08/02/2023 at [facility] [employer] [id number] 02/26/2026 [id number] / / [id number] documented as of this encounter Visit Diagnoses Diagnosis Cirrhosis of liver with ascites, unspecified hepatic cirrhosis type (HCC)- Primary documented in this encounter Care Teams Pugger Helper Relationship Specialty Start Date End Date Krystian Palomo MD [address] [place] [address] [place] [address] PCP - General Family Medicine 12/22/23 documented as of this encounter
[2024-02-28] MEDS: IBUPROFEN 200 MG TAB PO STA (06:06)
[2024-02-28 06:20] LABS: Hemoglobin 11.6 g/dl (14.0-18.0); Mean Corpuscular Hemoglobin 35.7 pg (25.0-34.0); Mean Corpuscular Hgb Conc 35.2 g/dL (32.0-36.0); Mean Corpuscular Volume 101.5 fL (80.0-100.0); Mean Platelet Volume 11.7 fL (9.4-12.4); Platelet Count 61 K/uL (130-400); RDW Coefficient of Variation 15.3 % (11.5-14.5); RDW Standard Deviation 57.3 fL (36.4-46.3); Red Blood Count 3.25 M/uL (4.70-6.10); White Blood Count 5.63 K/ul (4.8-10.8)
[2024-02-28 06:50] LABS: Alanine Aminotransferase 34 U/L (7-52); Albumin Globulin Ratio 0.6 (0.9-2); Albumin Level 2.4 gm/dl (3.4-5.0); Alkaline Phosphatase 138 U/L (34-104); Anion Gap 8 (3-11); Aspartate Aminotransferase 50 U/L (13-39); BUN Creatinine Ratio 17.7 (10-20); Bilirubin,Total 4.3 mg/dl (0.2-1.0); Blood Urea Nitrogen 17 mg/dl (6-23); Calcium 8.3 mg/dl (8.6-10.3); Carbon Dioxide 22 mmol/L (21-32); Chloride 103 mmol/L (98-107); Creatinine Clr Calc Pharmacy 101.8 ml/min; Est GFR (African American) 99.9 ml/min; Est GFR (Non-African American) 86.2 ml/min; Globulin 4.2 gm/dl (2.5-4.0); Glucose 201 mg/dl (70-99(Fasting)); Iron 188 mcg/dl (35-175); Magnesium 1.7 mg/dl (1.7-2.4); Phosphorus 3.4 mg/dl (2.5-4.9); Potassium 3.8 mmol/L (3.5-5.1); Sodium 133 mmol/L (136-145); Total Protein 6.6 gm/dl (6.0-8.3); Unsaturated Iron Binding Cap < 55 mcg/dl (155-355)
[2024-02-28 07:02] LABS: INR 1.4 (0.9-1.1); Prothrombin Time 15.5 Seconds (9.0-12.0)
[2024-02-28 07:10] LABS: Folate (Folic Acid),Ser orPlas > 22.30 ng/ml (>5.38)
[2024-02-28 07:11] LABS: Vitamin B12 > 1500 pg/ml (180-914)
[2024-02-28 07:16] LABS: Estimated Average Glucose 194 mg/dl; Hemoglobin A1C 8.4 % (4.5-5.6)
[2024-02-28 07:20] LABS: Ferritin 112.2 ng/ml (8-388)
[2024-02-28] MEDS: FUROSEMIDE 40 MG TAB PO SCH (08:08)
[2024-02-28] MEDS: allopurinoL 300 MG TAB PO SCH (08:09)
[2024-02-28] MEDS: ATORVASTATIN 20 MG TAB PO SCH (08:09)
[2024-02-28] MEDS: SPIRONOLACTONE 100 MG TAB PO SCH (08:09)
--- NOTE | 2024-02-28 10:58 | Pharmacy Report ---
Pharmacy Glycemic Short Note 2 - Date of Service February 28, 2024 - Glycemic Short BSG Results (Last 24 hours): 02/27/24 02/27/24 02/27/24 11:00 13:17 16:02 Glucose 404 H* POC Glucose 318 H* 278 H 02/27/24 02/28/24 02/28/24 17:58 00:03 05:23 Glucose 201 H POC Glucose 226 H 200 H 02/28/24 02/28/24 06:09 10:30 Glucose POC Glucose 204 H 179 H 02/28/24 12:01 POC Glucose 209 H OUTPATIENT ANTIDIABETIC REGIMEN: * Metformin 500 mg PO BIDM * Glimepiride 1 mg PO AM * Pioglitazone 30 mg PO AM * HbA1c pending (most recent was 7% on 01/05/24) ASSESSMENT: 02/27 * Patient received 24 units of insulin yesterday, 10 units basal, NPO, blood sugars remain over goal. * Gave 10 units of NovoLog correctional insulin this AM, BSG 204 --> 179mg/dl while NPO, and now up to 209mg/dl 2 hours later, patient in need of basal. * Clear liquid diet starting with lunch, will start basal with lunch and PRN at HS. 02/26 * 58 yo M admitted on 02/27/24 secondary to metabolic encephalopathy. Pharmacy has been consulted to assist with inpatient glycemic management. Patient is a Type 2 diabetic as an outpatient. Please refer to outpatient regimen and most recent HbA1c above. * Patient is currently NPO. BSGs have been elevated: 318-278-226 mg/dL. Received 10 units of bolus insulin around 1300 and another 3 units around 1600. * Will tighten goal range from 110-180 mg/dL to 110-140 mg/dL to provide more coverage. Bolus regimen started by provider based on weight/stress of 2 so will tighten to 3. Changing accuchecks to every 4 hours for now while NPO. * Believe patient may require a small basal dose tonight despite being NPO. This will also provide coverage for tomorrow should the patient be ordered a diet and start eating. Will give 10 units (0.09 units/kg) x 1 dose tonight. PLAN FOR INPATIENT GLYCEMIC CONTROL: * Hold outpatient oral diabetes medications * Basal insulin * Lantus 20 units SQ Daily beginning at lunchtime today, and 10 units HS for BSG > 180mg/dl * Bolus insulin * NovoLog per scale ACHS or Q6hrs while NPO * Goal Range: Low 110 mg/dL - High 140 mg/dL * Correction Factor: 15 mg/dL/unit * Nutritional / Prandial insulin per carb ratio of 1 unit per 5 grams CHO consumed
--- NOTE | 2024-02-28 12:08 | Gastrointestinal Consultation ---
Date of Consultation February 28, 2024 Assessment & Plan (1) Acute hepatic encephalopathy: (2) Cirrhosis: Plan Patient is a very pleasant 58 y.o. CM with a history of GONZALES cirrhosis (MELD ~19) as well as HCC s/p TACE with refractory ascites admitted with HE in the setting of medical nonadherence. -Reinforced the importance of Lactulose adherence to maintain ~3 bms daily. -Continue Xifaxan 550 mg BID. -Follow up with [facility] [address] [facility] upon discharge. Thank you for allowing us to participate in the care of this patient. If you have any questions or concerns, please do not hesitate to contact us. Supervising Physician Co-Signing Physician Notes Agree with CONCHIS Guillermo as above Interviewed and examined patient and agree with above Abd: Soft, NT, ND, +BS Recent EGD and Colonoscopy with [facility] Continue current therapy and supportive care History of Present Illness Reason for Consultation: HE Requesting Physician: Dr. Donahue Attending Physician: Hasmukh Judd MD History of Present Illness Patient is a very pleasant 58 y.o. CM with a history of GONZALES cirrhosis (MELD ~19) as well as HCC s/p TACE with refractory ascites admitted with HE. He typically follows with CONCHIS Chandler and Dr. Armstrong of [facility] and [facility] liver transplant. He was scheduled for his routine ultrasound guided paracentesis which he obtains every 1-2 weeks but due to becoming confused and very minimal ascites, no para was performed and he was sent to the ER for further evaluation. Patient was found to have hyperammonemia of 262. Was provided lactulose enemas overnight and this morning he is mentating at baseline level as per Dr. Judd (familiar with the patient). He is able to provide his accurate , name of president and day of the week. He denies any abdominal pa in, n/v, pruritus, or overt GIB. +tremor and dark urine. Last colonosocpy from 01/11/[address] Armstrong was normal. Allergies Allergy/AdvReac Type Severity Reaction Status Date / Time aspirin Allergy Intermediate NOSE Verified 01/11/24 08:15 BLEEDS--IF TAKES REGULARLY Home Medications Medication Instructions Recorded Confirmed Type allopurinol 300 mg tablet 300 mg PO QAM 06/03/19 02/27/24 History metformin 500 mg tablet 0 mg PO BIDM 06/03/19 02/27/24 History multivitamin 1 tab PO QAM 06/03/19 02/27/24 History pioglitazone 30 mg tablet (Actos) 0 mg PO QAM 06/03/19 02/27/24 History atorvastatin 20 mg tablet 0 mg PO QAM 04/21/21 02/27/24 History glimepiride 1 mg tablet 0 mg PO QAM 01/13/22 02/27/24 History lactulose 20 gram/30 mL oral 45 g (67.5 mL) PO TID Cirrhosis 30 03/30/22 02/27/24 Rx solution days #3,000 mL ascorbic acid (vitamin C) 1,000 mg 1 g PO QAM 08/27/23 02/27/24 History tablet (Vitamin C) mupirocin 2 % topical ointment 1 applic EXT TID #20 grams 08/29/23 02/27/24 Rx tamsulosin 0.4 mg capsule 0.4 mg PO DAILY 10/04/23 02/27/24 History rifaximin 550 mg tablet (Xifaxan) 550 mg PO BID 01/02/24 02/27/24 History carvedilol 6.25 mg tablet 6.25 mg PO BID 02/27/24 02/27/24 History furosemide 20 mg tablet 40 mg PO QAM 02/27/24 02/27/24 History omeprazole 20 mg capsule,delayed 20 mg PO QAM 02/27/24 02/27/24 History release spironolactone 25 mg tablet 100 mg PO QAM 02/27/24 02/27/24 History Patient History Medical History Dizziness r/t the cirrhosis - using a cane at this time. "if i get up to fast". S/P abdominal paracentesis Ascites Hepatocellular carcinoma possibly carcinogenic - pt unsure if it has been confirmed. 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 Surgical History History of esophagogastroduodenoscopy (EGD) History of colonoscopy Family History Mother History of colonoscopy Brother Family history of diabetes mellitus Brother Family history of diabetes mellitus Grandmother (Paternal) Family history of diabetes mellitus Other No family history of adverse response to anesthesia Social History Smoking Status: Never smoker Tobacco Type: Smokeless Tobacco (Dip or Chew) Second Hand Exposure: No; Do You Dip or Chew Tobacco: Yes; Hx Alcohol Use: No Hx Substance Use: No Preferred Language: Martiniquais Communication Ability: Effective Central Scheduler Required: No Beliefs That Will Affect Care: None marital status: Single Current Living Situation: Family Current Living Situation Comment: mom and daughter live with him Feels Safe at Home: Yes Assistive Devices: Cane and Glasses Review of Systems Constitutional: + fatigue; no fever and no chills Respiratory: no cough and no dyspnea Cardiovascular: no chest pain and no palpitations Gastrointestinal: as per Subjective / HPI Physical Exam Constitutional: WD/WN, vitals as above Eyes: + scleral abnormality (bilateral icterus ) Neck: normal visual inspection Respiratory: normal respiratory effort, lungs clear to auscultation Cardiovascular: Rate/Rhythm: regular rate and regular rhythm Heart Sounds: + murmur Gastrointestinal (Abdomen): Inspection/Auscultation: + abdomen distended, normal bowel sounds and + visible herniation (periumbilical) Musculoskeletal: Extremities: + hand abnormality Bilateral (tremor) Skin: + jaundice Psychiatric: A+Ox3, euthymic affect Results & Data Vital Signs (Past 12 Hours) Vital Signs Temp Pulse Pulse Resp BP Pulse Ox O2 Del Method 02/28/24 11:11 36.9 C 78 18 108/69 98 Room Air 02/28/24 07:15 37.1 C 79 18 110/68 98 Room Air 02/28/24 02:49 36.7 C 75 18 117/87 97 Room Air 02/28/24 00:15 70 Diagnostic Findings Laboratory Results WBC 5.63 K/ul (4.8-10.8) 02/28/24 05:23 RBC 3.25 M/uL (4.70-6.10) L 02/28/24 05:23 Hgb 11.6 g/dl (14.0-18.0) L 02/28/24 05:23 Hct 33.0 % (42.0-52.0) L 02/28/24 05:23 MCV 101.5 fL (80.0-100.0) H 02/28/24 05:23 MCH 35.7 pg (25.0-34.0) H 02/28/24 05:23 MCHC 35.2 g/dL (32.0-36.0) 02/28/24 05:23 RDW Std Deviation 57.3 fL (36.4-46.3) H 02/28/24 05:23 RDW Coeff of Polo 15.3 % (11.5-14.5) H 02/28/24 05:23 Plt Count 61 K/uL (130-400) L 02/28/24 05:23 MPV 11.7 fL (9.4-12.4) 02/28/24 05:23 Immature Gran % (Auto) 0.4 % 02/27/24 11:00 Neut % (Auto) 65.9 % 02/27/24 11:00 Lymph % (Auto) 11.4 % 02/27/24 11:00 [place] % (Auto) 16.3 % 02/27/24 11:00 Eos % (Auto) 4.6 % 02/27/24 11:00 Baso % (Auto) 1.4 % 02/27/24 11:00 Neut # (Auto) 3.77 K/uL (1.40-6.50) 02/27/24 11:00 Lymph # (Auto) 0.65 K/uL (1.20-3.40) L 02/27/24 11:00 [place] # (Auto) 0.93 K/uL (0.11-0.59) H 02/27/24 11:00 Eos # (Auto) 0.26 K/uL (0.00-0.50) 02/27/24 11:00 Baso # (Auto) 0.08 K/uL (0.00-0.20) 02/27/24 11:00 Immature Gran # (Auto) 0.02 K/uL (0.01-0.20) 02/27/24 11:00 PT 15.5 Seconds (9.0-12.0) H 02/28/24 05:23 INR 1.4 (0.9-1.1) H 02/28/24 05:23 APTT 32 Seconds (21-31) H 02/27/24 11:00 PTT Ratio 1.1 02/27/24 11:00 Sodium 133 mmol/L (136-145) L 02/28/24 05:23 Potassium 3.8 mmol/L (3.5-5.1) D 02/28/24 05:23 Chloride 103 mmol/L (98-107) 02/28/24 05:23 Carbon Dioxide 22 mmol/L (21-32) 02/28/24 05:23 Anion Gap 8 (3-11) 02/28/24 05:23 BUN 17 mg/dl (6-23) 02/28/24 05:23 Creatinine 0.96 mg/dl (0.6-1.4) 02/28/24 05:23 Est Cr Clr Drug Dosing 101.8 ml/min 02/28/24 05:23 Est GFR ( Amer) 99.9 ml/min 02/28/24 05:23 Est GFR (Non-Af Amer) 86.2 ml/min 02/28/24 05:23 BUN/Creatinine Ratio 17.7 (10-20) 02/28/24 05:23 Glucose 201 mg/dl (70-99(Fasting)) H 02/28/24 05:23 POC Glucose 179 mg/dl (70-99) H 02/28/24 10:30 Estimat Average Glucose 194 mg/dl 02/28/24 05:23 Hemoglobin A1c 8.4 % (4.5-5.6) H 02/28/24 05:23 Osmolality 292 mOsm/kg (280-300) 02/27/24 11:00 Calcium 8.3 mg/dl (8.6-10.3) L 02/28/24 05:23 Phosphorus 3.4 mg/dl (2.5-4.9) 02/28/24 05:23 Magnesium 1.7 mg/dl (1.7-2.4) 02/28/24 05:23 Iron 188 mcg/dl (35-175) H 02/28/24 05:23 TIBC TNP 02/28/24 05:23 Unsaturated IBC < 55 mcg/dl (155-355) L 02/28/24 05:23 Transferrin % Sat TNP 02/28/24 05:23 Ferritin 112.2 ng/ml (8-388) 02/28/24 05:23 Total Bilirubin 4.3 mg/dl (0.2-1.0) H D 02/28/24 05:23 AST 50 U/L (13-39) H 02/28/24 05:23 ALT 34 U/L (7-52) 02/28/24 05:23 Alkaline Phosphatase 138 U/L (34-104) H 02/28/24 05:23 Ammonia 262.0 umol/L (18-72) H 02/27/24 11:00 Total Protein 6.6 gm/dl (6.0-8.3) 02/28/24 05:23 Albumin 2.4 gm/dl (3.4-5.0) L 02/28/24 05:23 Globulin 4.2 gm/dl (2.5-4.0) H 02/28/24 05:23 Albumin/Globulin Ratio 0.6 (0.9-2) L 02/28/24 05:23 Vitamin B12 > 1500 pg/ml (180-914) H 02/28/24 05:23 Folate > 22.30 ng/ml (>5.38) 02/28/24 05:23 TSH 2.079 uIu/ml (0.300-4.500) 02/27/24 11:00 Urine Color Yellow 02/27/24 12:18 Urine Appearance Clear (Clear) 02/27/24 12:18 Urine pH 7.5 (4.5-7.5) 02/27/24 12:18 Ur Specific D[place]mer 1.022 (1.000-1.030) 02/27/24 12:18 Urine Protein Negative (Negative) 02/27/24 12:18 Urine Glucose (UA) 3+ (Negative) H 02/27/24 12:18 Urine Ketones Negative (Negative) 02/27/24 12:18 Urine Blood Negative (Negative) 02/27/24 12:18 Urine Nitrite Negative (Negative) 02/27/24 12:18 Urine Bilirubin Negative (Negative) 02/27/24 12:18 Urine Urobilinogen Negative (Negative) 02/27/24 12:18 Ur Leukocyte Esterase Negative (Negative) 02/27/24 12:18 Urine Osmolality 476 mOsm/kg (500-800) L 02/27/24 12:18 Urine Sodium 49 mmol/L 02/27/24 12:18 Urine Potassium 18.1 mmol/L 02/27/24 12:18 Urine Chloride 34 mmol/L 02/27/24 12:18 Impressions Chest X-Ray 02/27/24 10:59 XR chest 1V portable HISTORY: weakness COMPARISON: Chest 10/04/2023. FINDINGS: The heart remains mildly enlarged. No focal lung consolidations to suggest a pneumonia. No evidence for pulmonary edema. There are old, healed right-sided rib fractures again noted. No pleural fusions. No pneumothorax. IMPRESSION: Stable cardiomegaly. Otherwise, no acute process within the chest. ACT 112: Negative or not required by law. Electronically signed by: Huber Alvarado M.D. 02/27/2024 11:[address] 02/27/24 11:00 CT SCAN OF THE BRAIN WITHOUT IV CONTRAST CLINICAL HISTORY: Change in mental status. COMPARISON STUDY: CT of the brain dated 09/09/2023. TECHNIQUE: Unenhanced axial CT scan of the brain is performed from the vertex to the skull base. A dose lowering technique was utilized adhering to the principles of ALARA. CT DOSE: 625.8 mGy.cm FINDINGS: Brain parenchyma: The brain parenchyma is normal in appearance. There is no hemorrhage, mass effect, or evidence of acute territorial ischemia by CT criteria. Moseley-white matter differentiation is preserved. No extra-axial fluid collection is seen. Ventricles, sulci, cisterns: Normal in configuration. Intracranial vasculature: The visualized intracranial vasculature at the skull base is normal in appearance. Calvarium: Unremarkable. Sinuses and mastoids: The visualized paranasal sinuses are clear. The mastoid air cells are well pneumatized. Orbits: The bony orbits are grossly intact. IMPRESSION: There is no hemorrhage, mass effect, or evidence of acute territorial ischemia by CT criteria. ACT 112: Negative or not required by law. Electronically signed by: Ruy Ribeiro M.D. 02/27/2024 11:40 AM PG Care Time/CCT Total # of Minutes Spent Total Time Spent with Patient: Total time spent is greater than 50% in coordination of care (as documented) at patient's floor/unit and/or counseling patient: Coding Level of Care Code 60368 INT INP/OBS CARE MIN Diagnoses Acute hepatic encephalopathy K72.00 Cirrhosis K74.60
[2024-02-28] MEDS: LANTUS PER UNIT CHARGE SC SCH ×2 (12:43→21:32)
--- NOTE | 2024-02-28 15:48 | Hospitalist Progress Note ---
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 Spencer is a 58-year-old male with past med history significant for type 2 diabetes, hyperlipidemia, chronic idiopathic gout, hepatic encephalopathy, hypertension, moderate aortic stenosis,GONZALES cirrhosis, heptocellular carcinoma s/p embolization, diverticulosis of colon, thrombocytopenia who is admitted for decompensated cirrhosis marked by hepatic encephalopathy. Patient awake and oriented to self. No able to take PO. Plan to trial with lactulose enema and consult GI for further recommendations. Decompensation iso medication noncompliance. Low suspicion for infection: UA unremarkable, no WBC, no localizing features. Ammonia 262 #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, decompensated #Hepatocellular Carcinoma s/p embolization of RHL on 08/02/2023 - History of decompensation: yes - MELD-Na: 19 on admission (sodium corrected for hyperglycemia 131) - Last EGD 07/04/2023: no EV - Last colonoscopy: 12/2023 normal, internal hemorrhoids, repeat 2028 2/2 family hx -Coagulopathy: Platelets 56, baseline routine 60-70, largely variable INR 1.4 - Portal hypertension: gastropathy, splenomegaly - PSE: evidence of HE on exam, c/w lactulose enema q8h until able to take PO (titrated to 3-4BM / day) or lactulose 30mg QID if tolerating/safe for p -Resume Rifaximin 550 BID when able to tolerate PO - Ascites: home Lasix:Lester 40:100, hold while NPO -IV lasix 40mg now -At scheduled IR appointment 02/26, < 500cc, small ascites - SBP: No evidence of SBP (PMNs <200 with routine para, last 02/09/24) - EV: No evidence of GIB presently, close monitoring -Stable anemia - on omeprazole 20mg for PPx at home, will continue pantoprazole while inpatient, IV daily->PO when able - HRS: Cr at baseline (0.8-1.1), no signs of HRS - Daily CMP + INR to calculate MELD; NPO while encephalopathic - GI consult 02/27 Mental status significantly improved Continue lactulose and rifaximin GI service consulted Emphasized need to regularly take lactulose and rifaximin, patient verbalized understanding and agreement # Chronic Macrocytic Anemia #Acute on Chronic Thrombocytopenia -B12 historically notably elevated iso cirrhosis, folate 17 in 07/2023 Platelets historically 60-70s, repeat CBC -Low threshold to hold heparin dvt if less than <50 -likely exacerbated iso encephalopathy Will repeat b12, folate, and iron labs -Trend labs 02/27 Stable #Portal Hypertensive Gastropathy -Continue PPI (home omperazole 20mg) : 40mg Protonix while inpatient #gout -Hold allopurinol, resume when able #hyperglycemia #Diabetes Mellitus TypeII no sign of DKA Hold home metformin, pioglitazone, glimepiride Insulin sliding scale POC q6 hours while npo, hypoglycemia protocol We will follow blood sugars and HbA1c levels 02/27 Improving A1c 8.4 #Hypertension #Moderate aortic stenosis Monitor for volume overload -Hold lisinopril and coreg while NPO Resume when able Normotensive as of now, will add prn labetalol for SBP > 180 #Hyponatremia Sodium 129, corrected to 131 iso hyperglycemia Sodium 133 #Hx of LUTs/retention -Resume tamsulosin when able DVT heparin q12, monitor platelets Disposition: Anticipate discharge to home tomorrow when medically stable Admission and Anticipated Discharge Date Admission Date: February 27, 2024 Subjective ff up for hep enceph, etc seen resting in bed, comfortable states he feels fine overall back to baseline mental status answers questions appropriately no chest pain, dyspnea, palpitations, dizziness no abdominal pain, nausea, fever/chills,etc Review of Systems Review of Systems: all noted and negative except for above Physical Exam Physical Exam: General- oriented x 3, not in distress, speaks in sentences with no effort or accessory muscle use Eyes- anicteric Neck- no JVD Lungs- clear breath sounds bilaterally, no rales/wheezes Heart- normal rate, regular rhythm; no murmurs Abdomen- normal bowel sounds, nondistended, soft, nontender Extremities- no pretibial edema, no calf tenderness Neuro- alert, oriented x 3; no gross focal neurologic deficits Skin- warm & dry Results & Data Results & Data Vital Signs (Past 12 Hours) Vital Signs Temp Pulse Resp BP Pulse Ox O2 Del Method 02/28/24 11:11 36.9 C 78 18 108/69 98 Room Air 02/28/24 07:15 37.1 C 79 18 110/68 98 Room Air all noted and reviewed including below
[2024-02-29] MEDS: LANTUS PER UNIT CHARGE SC SCH (09:00)
--- NOTE | 2024-02-29 13:33 | Discharge Summary ---
Discharge Summary Date of Service February 29, 2024 Admission HPI Per Admitting Provider Mr. Spencer is a 58-year-old male with past med history significant for type 2 diabetes, hyperlipidemia, chronic idiopathic gout, hepatic encephalopathy, hypertension, moderate aortic stenosis,GONZALES cirrhosis, hepatocellular carcinoma s/p embolization, diverticulosis of colon, thrombocytopenia who presented to [facility] ED at [facility] due to altered mental status. Spoke to his brother Cory who states he has been taking his lactulose, but endorses not using the bathroom as much as he should--also noting he isn't tolerating the taste as much. Brother states that he has been fine the last time he spoke to the patient, roughly a day prior. Labs with k 5, glucose 404, stable renal function, t bili 2.4, ammonia 262 In the ED, vitals were notable for BP of 110s-120s, HR of 60s and O2 sat of high 90s on room air Imaging revealed normal CT head, abd us estimated at less than 500 mL, CXR stable EKG reviewed, SDR, elevated t waves ED interventions: ca gluconate Additional interventionts: initially not clear for PO, attempted Lactulose enema, but able to take 20mg Laculose; 10 U aspart, lasix 40 Patient to be admitted to pcu/tele. 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 Spencer is a 58-year-old male with past med history significant for type 2 diabetes, hyperlipidemia, chronic idiopathic gout, hepatic encephalopathy, hypertension, moderate aortic stenosis,GONZALES cirrhosis, heptocellular carcinoma s/p embolization, diverticulosis of colon, thrombocytopenia who is admitted for decompensated cirrhosis marked by hepatic encephalopathy. Patient awake and oriented to self. No able to take PO. Plan to trial with lactulose enema and consult GI for further recommendations. Decompensation iso medication noncompliance. Low suspicion for infection: UA unremarkable, no WBC, no localizing features. Ammonia 262 #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, decompensated #Hepatocellular Carcinoma s/p embolization of RHL on 08/02/2023 - History of decompensation: yes - MELD-Na: 19 on admission (sodium corrected for hyperglycemia 131) - Last EGD 07/04/2023: no EV - Last colonoscopy: 12/2023 normal, internal hemorrhoids, repeat 2028 2/2 family hx -Coagulopathy: Platelets 56, baseline routine 60-70, largely variable INR 1.4 - Portal hypertension: gastropathy, splenomegaly - PSE: evidence of HE on exam, c/w lactulose enema q8h until able to take PO (titrated to 3-4BM / day) or lactulose 30mg QID if tolerating/safe for p -Resume Rifaximin 550 BID when able to tolerate PO - Ascites: home Lasix:Bethel 40:100, hold while NPO -IV lasix 40mg now -At scheduled IR appointment 02/26, < 500cc, small ascites - SBP: No evidence of SBP (PMNs <200 with routine para, last 02/09/24) - EV: No evidence of GIB presently, close monitoring -Stable anemia - on omeprazole 20mg for PPx at home, will continue pantoprazole while inpatient, IV daily->PO when able - HRS: Cr at baseline (0.8-1.1), no signs of HRS - Daily CMP + INR to calculate MELD; NPO while encephalopathic - GI consult 02/27 Mental status significantly improved Continue lactulose and rifaximin GI service consulted Emphasized need to regularly take lactulose and rifaximin, patient verbalized understanding and agreement # Chronic Macrocytic Anemia #Acute on Chronic Thrombocytopenia -B12 historically notably elevated iso cirrhosis, folate 17 in 07/2023 Platelets historically 60-70s, repeat CBC -Low threshold to hold heparin dvt if less than <50 -likely exacerbated iso encephalopathy Will repeat b12, folate, and iron labs -Trend labs 02/27 Stable #Portal Hypertensive Gastropathy -Continue PPI (home omperazole 20mg) : 40mg Protonix while inpatient #gout -Hold allopurinol, resume when able #hyperglycemia #Diabetes Mellitus TypeII no sign of DKA Hold home metformin, pioglitazone, glimepiride Insulin sliding scale POC q6 hours while npo, hypoglycemia protocol We will follow blood sugars and HbA1c levels 02/27 Improving A1c 8.4 #Hypertension #Moderate aortic stenosis Monitor for volume overload -Hold lisinopril and coreg while NPO Resume when able Normotensive as of now, will add prn labetalol for SBP > 180 #Hyponatremia Sodium 129, corrected to 131 iso hyperglycemia Sodium 133 #Hx of LUTs/retention -Resume tamsulosin when able DVT heparin q12, monitor platelets Disposition: Anticipate discharge to home tomorrow when medically stable Updated Medication List Medication Instructions Recorded Confirmed Type allopurinol 300 mg tablet 300 mg PO QAM 06/03/19 02/27/24 History metformin 500 mg tablet 0 mg PO BIDM 06/03/19 02/27/24 History multivitamin 1 tab PO QAM 06/03/19 02/27/24 History pioglitazone 30 mg tablet (Actos) 0 mg PO QAM 06/03/19 02/27/24 History atorvastatin 20 mg tablet 0 mg PO QAM 04/21/21 02/27/24 History glimepiride 1 mg tablet 0 mg PO QAM 01/13/22 02/27/24 History lactulose 20 gram/30 mL oral 45 g (67.5 mL) PO TID Cirrhosis 30 03/30/22 02/27/24 Rx solution days #3,000 mL ascorbic acid (vitamin C) 1,000 mg 1 g PO QAM 08/27/23 02/27/24 History tablet (Vitamin C) mupirocin 2 % topical ointment 1 applic EXT TID #20 grams 08/29/23 02/27/24 Rx tamsulosin 0.4 mg capsule 0.4 mg PO DAILY 10/04/23 02/27/24 History rifaximin 550 mg tablet (Xifaxan) 550 mg PO BID 01/02/24 02/27/24 History carvedilol 6.25 mg tablet 6.25 mg PO BID 02/27/24 02/27/24 History furosemide 20 mg tablet 40 mg PO QAM 02/27/24 02/27/24 History omeprazole 20 mg capsule,delayed 20 mg PO QAM 02/27/24 02/27/24 History release spironolactone 25 mg tablet 100 mg PO QAM 02/27/24 02/27/24 History Hospital Stay Data Consultations 02/27/24 12:24 ED Decision to Admit Stat 02/27/24 13:28 Consult Gastroenterology Routine Diagnostic Imagining Performed 02/27/24 11:00 CT head/brain wo con Stat Pending Results Patient Have Any Pending Studies at Discharge: No Discharge Instructions Given to Patient (Per Discharging Provider) Please take lactulose and rifaximin regularly as directed to prevent encephalopathy or confusion. PLEASE CALL YOUR PRIMARY CARE PHYSICIAN OR RETURN TO THE ER IF WITH WORSENING OF SYMPTOMS, INCLUDING Fevers or chills, abdominal pain, nausea/vomiting, confusion, etc. FOLLOW UP WITH PRIMARY CARE PHYSICIAN OUTLINED ABOVE. FOLLOW-UP WITH PRINCIPAL LAW CLERK IN 2 WEEKS.
[2024-02-29] MEDS: MUPIROCIN 2% OINT 22 GM TUBE EXT SCH (15:59)
== END 2024-02-29 18:14 | disposition home or self-care (01) | DRG 442 ==
LOC: ED 10:46 → SUATTDRO 12:59 → EDINP 12:59 → 4W 15:44

== ENCOUNTER 2024-05-26 17:20 | Inpatient (IN) ==
--- OUTSIDE RECORDS SUMMARY | 2024-05-26 17:25 | External Medical Summary ---
Author Name Unknown Address Unknown Organization K01:[facility] [place] [facility] [address] [facility] [address] [facility] [address] Laboratory Report Ordering Provider Test Date Status FRANCISCA LUIS TAALUZ MARIA 04/11/2024 07:09:18 Final Observation Date Value Abnormality Reference (Units ) Status WBC, Total 04/11/2024 07:09:18 5.43 4.00-10.80 (K/uL) Final RBC 04/11/2024 07:09:18 3.23 4.50-5.25 (M/uL) Final Hemoglobin 04/11/2024 07:09:18 12.0 Below low normal 14.0-16.8 (g/dL) Final HCT 04/11/2024 07:09:18 34.0 Below low normal 40.0-48.4 (%) Final MCV 04/11/2024 07:09:18 105.3 82.0-99.5 (fL) Final MCH 04/11/2024 07:09:18 37.2 27.0-34.0 (pg) Final MCHC 04/11/2024 07:09:18 35.3 32.0-36.0 (g/dL) Final RDW 04/11/2024 07:09:18 16.6 11.5-15.5 (%) Final Platelets 04/11/2024 07:09:18 88 Below low normal 140-400 (K/uL) Final MPV 04/11/2024 07:09:18 11.5 6.6-11.1 (fL) Final Nucleated erythrocytes/100 leukocytes [Ratio] in Blood by Automated count 04/11/2024 07:09:18 0 <=0 (/100 WBCs) Final Performing Location [facility] [place] [facility] [place] [address]
--- OUTSIDE RECORDS SUMMARY | 2024-05-26 17:25 | External Medical Summary ---
Author Name Unknown Address Unknown Organization K01:[facility] [place] [address] [place] [address] Laboratory Report Ordering Provider Test Date Status FRANCISCA LUIS 04/11/2024 07:09:18 Final Observation Date Value Abnormality Reference (Units ) Status BUN 04/11/2024 07:09:18 20 6-20 (mg/dL) Final Creatinine 04/11/2024 07:09:18 1.0 0.6-1.2 (mg/dL) Final Glomerular filtration rate/1.73 sq M.predicted [Volume Rate/Area] in Serum, Plasma or Blood by Creatinine-based formula (CKD-EPI) 04/11/2024 07:09:18 88 >=60 (mL/min) Final eGFR is calculated based on the CKD-EPI 2020 equation Sodium 04/11/2024 07:09:18 129 Below low normal 135 -146 (mmol/L) Final Potassium 04/11/2024 07:09:18 4.2 3.5-5.1 (m mol/L) Final Cl 04/11/2024 07:09:18 98 98-107 (mm ol/L) Final CO2 04/11/2024 07:09:18 23 22-32 (mmo l/L) Final Anion gap 04/11/2024 07:09:18 8 7-15 (mmol /L) Final Glucose 04/11/2024 07:09:18 145 Above high normal 70 -120 (mg/dL) Final Albumin 04/11/2024 07:09:18 2.6 Below low normal 3.8 -5.0 (g/dL) Final AST (Aspartate aminotransferase) 04/11/2024 07:09:18 81 Above high normal 10-50 (U/L) Final Result may be falsely elevat ed due to hemolysis. Alk Phos 04/11/2024 07:09:18 140 Above high normal 35 -130 (U/L) Final Bilirubin, Total 04/11/2024 07:09:18 3.4 Above high no rmal <=1.2 (mg/dL) Final Calcium 04/11/2024 07:09:18 9.0 8.4-10.2 ( mg/dL) Final Protein 04/11/2024 07:09:18 6.7 6.0-8.3 (g /dL) Final ALT (Alanine aminotransferase) 04/11/2024 07:09:18 76 Above high normal 10-50 (U/L) Final Performing Location [facility] [place] [address] [facility] [address]
--- OUTSIDE RECORDS SUMMARY | 2024-05-26 17:25 | External Medical Summary ---
Author Name Unknown Address Unknown Organization K01:[facility] [place] - [address] [place] [address] Laboratory Report Ordering Provider Test Date Status FRANCISCA LUIS 04/11/2024 07:09:18 Final Warfarin Therapy
INR: 2 .0-3.0 conventional anticoagulation
INR: 2.5- 3.5 high intensity anticoagulation Observation Date Value Abnormality Reference (Units ) Status PT 04/11/2024 07:09:18 18.4 Above high normal 11 .6-15.2 (seconds) Final INR 04/11/2024 07:09:18 1.5 Above high normal 0. 8-1.2 Final Performing Location LAB[facility]ATORY [facility] [place] - [address] [place] [address]
--- OUTSIDE RECORDS SUMMARY | 2024-05-26 17:25 | External Medical Summary | Summary of Care ---
Author Name Unknown Organization [facility] Address [address] [facility] [address] Phone [phone] Care Team Providers Care Anesthesia Assistant Name Role Phone Krystian Palomo MD Primary Care Provide r Reason for Visit * Reason Comments eRx-Medication Refill Encounter Details Date Type Department Care Team (Late st Contact Info) Description 04/01/2024 Refill Gastroenterology, [facility] [address] [place] [address] Ren Pineda CRNP [address] [place] [address] Allergies Active Allergy Reactions Criticality Noted Date Comments Aspirin 01/28/2022 Other reaction(s): bloody nose Salicylates 08/08/2001 nose bleeds documented as of this encounter (statuses as of 04/03/2024) Medications Medication Sig Dispensed Refills Start Date End Date Status Multivitamin Adult Oral Tablet daily . 1 Active Vitamin C 1000 MG Oral Tablet daily . 1 Active metFORMIN HCl 500 MG Oral [...] 3 times a day. At hospital discharge 3 Active Tamsulosin HCl 0.4 MG Oral Capsule (Flomax)Indication s:Urinary retention One daily 30 Capsule 5 3 Active Lisinopril 5 MG Oral Tablet (Prinivil) Take 1 Tablet by mouth in the morning. In the morning.. 3 Active Albumin Human 25 % Intravenous Solution Give 50Gms after paracentesis (if more than 5L are removed). May run at 100/hr. 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 30 Tablet 5 4 Active Albuminex 25 % Intravenous Solution [...] Give 3 units albumin 100 mL 10 4 Active Carvedilol 3.125 MG Oral Tablet (Coreg)Indications :Essential (primary) hypertension Take 2 Tablets by mouth in the morning and 2 Tablets before bedtime. With food.. 180 Tablet 1 4 Active Dexcom G7 Planer Mill Grader Device Use as directed to monitor blood sugars 1 Each 4 Active Dexcom G7 Sensor Use as directed to monitor blood sugars. Change every 10 days. 3 Each 3 4 Active Furosemide 40 MG Oral Tablet (Lasix) TAKE ONE TABLET BY MOUTH IN THE MORNING 30 Tablet 3 4 Active Furosemide 40 MG Oral Tablet (Lasix) Take 1 Tablet by mouth in the morning. 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, ammonia 110 Aortic stenosis, moderate 01/21/2022 [...] as of this encounter (statuses as of 04/03/2024) Resolved Problems Problem Noted Date Diagnosed Date [...] as of this encounter (statuses as of 04/03/2024) Immunizations Name Administration Dates Next Due COVID-19 [...] Inj 07/30/2014,08/28/2013,08/13/2012,07/13,08/13/2009,08/13/2008 TD - Tetanus/Diptheria (ADULT) 10/30/2004 TDAP, Age 7 and older, IM (Adacel) 07/13/2011 documented as of this encounter Social [...] Telephone Encounter - Ren Pineda CRNP - 04/03/2024 4:09 PM EDTSigned Prescriptions: Disp Refills Furosemide 40 MG Oral Tablet (Lasix) 30 Tab*3 Sig: TAKE ONE TABLET BY MOUTH IN THE MORNING Authorizing Provider: REN PINEDA * Telephone Encounter - Maximo Florentino [facility] - 04/03/2024 11:19 AM EDTPending Prescriptions: Disp Refills Furosemide 40 MG Oral Tablet [Pharmacy Med*30 Tab*3 Sig: TAKE ONE TABLET BY MOUTH IN THE MORNING documented in this encounter Plan of Treatment Upcoming Encounters Date Type Department Care Team (Latest Contact Info) Description 04/11/2024 8:30 AM EDT Appointment Interventional Radiology [facility], [facility] 1st Floor [address] [place] [phone] 04/19/2024 1:00 PM EDT Office Visit Pharmacy, [address] [place] [address] [place] [address] 05/17/2024 10:30 AM EDT [facility] [address] [facility] [place] [address] Gw, Excess Time Radiology [address] [place] [address] 06/11/2024 9:00 AM EDT Office Visit Gastroenterolog y, [facility] [address] [place] [address] Ren Pineda CRNP [address] [facility] [place] [address] 06/24/2024 8:20 AM EDT Office Visit Family Medicine [address] [place] [phone] Krystian Palomo MD [address] [place] [address] [place] [address] 07/03/2024 1:30 PM EDT Hospital Encounter ENDO [facility], Endoscopy Room [facility] [address] [place] [phone] Jayla Armstrong MD [address] [place] [address] 07/03/2024 1:30 PM EDT - 07/03/2024 2:00 PM EDT Surgery ENDO [facility], Endoscopy Room [facility] [address] [place] [phone] Jayla Armstrong MD [address] [place] [...] Completed 12/06/2023, 03/2023, 06/06/2023, Additional history exists RETIRED - COLONOSCOPY-EVERY 5 YRS AGES 18-100 Discontinued 01/11/2024, 06/07/2019, 05/21/2010 GARDASIL-HPV IMMUNIZATION SERIES Aged Out No longer eligible based on patient's age to complete this topic MENINGOCOCCAL (MENACTRA/MENVEO) Aged Out No longer eligible based on patient's age to complete this topic documented as of this encounter Medical Devices Implanted Type Area Burr Filer Device Identifier Shelf Expiration Date Model / Serial / Lot Lipiodol Injection - [id number] Implanted:Qty: 1 on 08/02/2023 at [facility] [employer] 04/28/2026 [id number] Syr Pf 2ml Embospheres 100-300 - [id number] Implanted:Qty: 1 on 08/02/2023 at [facility] [employer] [id number] 02/26/2026 [id number] / / [id number] documented as of this encounter Care Teams Anesthesia Assistant Relationship Specialty Start Date End Date Krystian Palomo MD [address] [place] [address] [place] [phone] PCP - General Family Medicine 12/22/23 documented as of this encounter
--- OUTSIDE RECORDS SUMMARY | 2024-05-26 17:25 | External Medical Summary ---
Author Name Unknown Address Unknown Organization K01:[place] [place] [facility] [place] [address] Laboratory Report Ordering Provider Test Date Status FREDERIC RAMIREZ 04/19/2024 13:24:24 Final Observation Date Value Abnormality Reference (Units ) Status HbA1C 04/19/2024 13:24:24 8.4 Above high normal 4. 0-5.6 (%) Final The use of HbA1c to monitor glycemic status is based on normal hemoglobin and HbA composition. This test should not be used in patients with abnormal hemoglobin that affects the half life of the red blood cell or the in vivo glycation rates. Glucose, estimated average 04/19/2024 13:24:24 194 Above high normal <126 (mg/dL) Fin al Performing Location LAB[facility] [place] [address] [place] [address]
--- OUTSIDE RECORDS SUMMARY | 2024-05-26 17:25 | External Medical Summary | Summary of Care ---
Author Name Unknown Organization [facility] Address [address] [facility] [address] Phone [phone] Care Team Providers Care Pay Per Click Strategist Name Role Phone Krystian Palomo MD Primary Care Provide r Reason for Visit * Reason Comments Outpatient Testing Encounter Details Date Type Department Care Team (Late st Contact Info) Description 04/19/2024 1:30 PM EDT Laboratory Laboratory [address] [place] [phone] [facility] [address] [place] [address] Type 2 diabetes mellitus with hemoglobin A1c goal of less than 7.0% (HCC) Allergies Active Allergy Reactions Criticality Noted Date Comments Aspirin 01/28/2022 Other reaction(s): bloody nose Salicylates 08/08/2001 nose bleeds documented as of this encounter (statuses as of 04/19/2024) Medications Medication Sig Dispensed Refills Start Date End Date Status Multivitamin Adult Oral Tablet daily . 10/12/2021 Active Vitamin C 1000 MG Oral Tablet daily . 10/12/2021 Active metFORMIN HCl 500 MG Oral [...] 3 times a day. At hospital discharge 08/29/2023 Active Tamsulosin HCl 0.4 MG Oral Capsule (Flomax)Indications: Urinary retention One daily 30 Capsule 5 10/24/2023 Active Lisinopril 5 MG Oral Tablet (Prinivil) Take 1 Tablet by mouth in the morning. In the morning.. 10/26/2023 Active Albumin Human 25 % Intravenous Solution Give 50Gms after paracentesis (if more than 5L are removed). May run at 100/hr. 100 mL 11/09/2023 Active rifAXIMin 550 MG Oral Tablet (Xifaxan) TAKE ONE TABLET BY MOUTH EVERY MORNING AND ONE TABLET AT BEDTIME 60 Tablet 12 11/24/2023 Active Allopurinol 300 MG Oral Tablet (Zyloprim)Indication [...] units albumin 100 mL 10 01/24/2024 Active Carvedilol 3.125 MG Oral Tablet (Coreg)Indications:E ssential (primary) hypertension Take 2 Tablets by mouth in the morning and 2 Tablets before bedtime. With food.. 180 Tablet 1 03/04/2024 Active Dexcom G7 Ceramic Painter Device Use as directed to monitor blood sugars 1 Each 03/06/2024 Active Dexcom G7 Sensor Use as directed to monitor blood sugars. Change every 10 days. 3 Each 3 03/06/2024 Active Furosemide 40 MG Oral Tablet (Lasix) TAKE ONE TABLET BY MOUTH IN THE MORNING 30 Tablet 3 04/03/2024 Active Insulin Glargine Solostar 100 UNIT/ML Subcutaneous Solution Pen-injector (Lantus SoloStar) Inject 10 Units under the skin daily. 15 mL 3 04/19/2024 Active Pen [place] 32G X 4 MM Use as directed. Use to inject insulin once daily. 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 2nd Floor Cardiology, [place] [address] [place] [address] Gw, Excess Time Radiology [address] [place] [address] 05/23/2024 9:30 AM EDT Appointment Interventional Radiology [facility], [address] 1st Floor [address] [facility] [place] [phone] 06/11/2024 9:00 AM EDT Office Visit Gastroenterolog Pradip khalilmamie [facility] [address] [place] [address] Ren Pineda CRNP [address] [place] [address] 06/24/2024 8:20 AM EDT Office Visit Family [address] [place] [phone] Krystian Palomo MD [address] [place] [address] [place] [address] 07/03/2024 1:30 PM EDT Hospital Encounter ENDO [facility], Endoscopy Room [facility] [address] [place] [phone] Jayla Armstrong MD [address] [place] [address] 07/03/2024 1:30 PM EDT - 07/03/2024 2:00 PM EDT Surgery ENDO [facility], Endoscopy Room [facility] [address] [place] [phone] Jayla Armstrong MD [address] [place] [address] ESOPHAGOGASTRODUODENOSCOPY (EGD), FLEXIBLE, TRANSORAL, DIAGNOSTIC Pending Results Name Type Priority Associated Diagnoses Date /Time C-PEPTIDE Lab Routine Type 2 diabetes mellitus with hemoglobin A1c goal of less than 7.0% ([facility]) 04/19/2024 1:24 PM EDT HEMOGLOBIN A1C Lab Routine Type 2 diabetes mellitus with hemoglobin A1c goal of less than 7.0% ([facility]) 04/19/2024 1:24 PM EDT Scheduled Procedures Name Priority Associated [...] 09/20/2023, , 03/16/2021, Additional history exists GFR 04/11/2025 04/11/2024, 01/28, 01/24/2024, Additional history exists Lipid Panel 09/18/2028 09/18/2023, 2 12/2022, 03/09/2022, Additional history exists Colonoscopy 01/10/2029 01/11/2024, [...] this encounter Medical Devices Implanted Type Area Labor And Employment Paralegal Device Identifier Shelf Expiration Date Model / Serial / Lot Lipiodol Injection - [id number] Implanted:Qty: 1 on 08/02/2023 at [facility] [employer] 04/28/2026 [id number] Syr Pf 2ml Embospheres 100-300 - [id number] Implanted:Qty: 1 on 08/02/2023 at [facility] [employer] [id number] 02/26/2026 S220GH / / [id number] Syr Pf 2ml Embospheres 100-300 - [id number] Implanted:Qty: 1 on 04/11/2024 at [facility] [employer] [id number] 12/27/2026 S220GH / / [id number] Lipiodol Injection - [id number] Implanted:Qty: 1 on 04/11/2024 at [facility] [employer] [id number] 1 -2 / / documented as of this encounter Visit Diagnoses Diagnosis Type 2 diabetes mellitus with hemoglobin A1c goal of less than 7.0% (HCC) Rios's esophagus documented in this encounter Care Teams Pay Per Click Strategist Relationship Specialty Start Date End Date Krystian Palomo MD [address] [place] [address] [place] [address] PCP - General Family Medicine 12/22/23 documented as of this encounter
--- OUTSIDE RECORDS SUMMARY | 2024-05-26 17:25 | External Medical Summary | Summary of Care ---
Author Name Unknown Organization [facility] Address [address] [place] [address] Phone [phone] Care Team Providers Care Automatic Buffer Name Role Phone Krystian Palomo MD Primary Care Provide r Reason for Referral * Precert (Within 10 days (routine)) - Authorized Specialty Diagnoses / Procedures Referred By Liliana harley Referred To Contact Radiology Diagnoses Hepatocellular carcinoma (HCC) Procedures IR CANCER CHEMO EMBOLIZATION (TACE) AL VASCULAR EMBOLIZE/OCCLUDE ORGAN TUMOR INFARCT AL ABLTJ 1 OR MORE LVR CHERRY PRQ Amrit Hopkins MD [address] [place] [address] Referral ID Status Reason Start Date Expiration Date V isits Requested Visits Authorized [id number] Authorized Precert 04/04/2024 12/23/2026 999 999 Reason for Visit * Precert (Within 10 days (routine)) - Authorized Specialty Diagnoses / Procedures Referred By Dariaac cricket Referred To Contact Radiology Diagnoses Hepatocellular carcinoma (HCC) Procedures IR CANCER CHEMO EMBOLIZATION (TACE) AL VASCULAR EMBOLIZE/OCCLUDE ORGAN TUMOR INFARCT AL ABLTJ 1 OR MORE LVR CHERRY PRQ Amrit Hopkins MD [address] [place] [address] Referral ID Status Reason Start Date Expiration Date V isits Requested Visits Authorized [id number] Authorized Precert 04/04/2024 12/23/2026 999 999 Encounter Details Date Type Department Care Team (Latest Contact Info) Description 04/11/2024 7:15 AM EDT - 04/11/2024 12:45 PM EDT Hospital Encounter Radiology Waiting Room [facility] [address] [place] [address] Kirill Alcantara MD [address] [place] [address] Arrived Discharge Disposition: Home - Self Care Allergies Active Allergy Reactions Criticality Noted Date Comments Aspirin 01/28/2022 Other reaction(s): bloody nose Salicylates 08/08/2001 nose bleeds documented as of this encounter (statuses as of 04/12/2024) Medications Medication Sig Dispensed Refills Start Date [...] 180 Tablet 1 03/04/2024 Active Dexcom G7 Seafood And [employer] Meat Manager Device Use as directed to monitor blood sugars 1 Each 03/06/2024 Active Dexcom G7 Sensor Use as directed to monitor blood sugars. Change every 10 days. 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 07/05/2023 Hepatic encephalopathy 03/28/2022 Overview: admitted [facility], ammonia 110 Aortic stenosis, moderate 01/21/2022 [...] as of this encounter (statuses as of 04/12/2024) Resolved Problems Problem Noted Date Diagnosed Date [...] as of this encounter (statuses as of 04/12/2024) Immunizations Name Administration Dates Next Due COVID-19 [...] Sign Reading Time Taken Comments Blood Pressure 112/57 04/11/2024 12:30 PM EDT Pulse 70 04/11/2024 12:30 PM EDT Temperature 36.2 C (97.2 F) 04/11/2024 10:30 AM E DT Respiratory Rate 14 04/11/2024 12:30 PM EDT Oxygen Saturation 99% 04/11/2024 12:30 PM EDT Inhaled Oxygen Concentration - - Weight - - Height - - Body Mass Index - - documented in this encounter Discharge Instructions * Discharge Instr - AVS* Amrit Magaña MD - 04/11/2024 11:17 AM EDT Discharge Date: 04/11/2024 Provider: Dr. Amrit Magaña If you are experiencing any problems related to your procedure, please contact Interventional Radiology at [phone] during normal business hours: Monday - Monday, 8:00 am - 4:00 pm. If a problem occurs outside of normal business hours, please call the hospital lease operator at [phone] and ask for the Interventional Radiologist polymerization supervisor. Contact scheduling for Interventional Radiology at [phone] during normal business hours: Monday - Monday, 8:00 am - 4:00 pm. The information below provides you with the instructions and the list of medications you need to betaking following discharge from the hospital. If you have any questions, please ask before leaving.Please carry this letter with you when you see your doctor in the clinic. If you have questions, you can reach us at the numbers above. SPECIAL INSTRUCTIONS Chemoembolization / Lasalle Embolization of Liver Tumor You had a procedure called an angiogram. An angiogram is an X-ray examination of your arteries and can be used to look at arteries throughout the body. This procedure is performed by an Interventional Radiologist, a physician who specializes in minimally invasive, targeted treatments using imaging for guidance. During the angiogram, the Interventional Radiologist inserts a thin tube (a catheter) into one of your arteries through a very small incision in the skin, about the size of a pencil tip.Contrast (X-ray dye) is then injected into the artery while X-rays are taken of the area. The contrast makes the artery visible on the X-rays. You also underwent embolization of the tumor where blood supply to the tumor was blocked. The angiogram helps your physician plan the best treatment for you. Home Care Keep dressing clean, dry, and intact for 3 days; change as needed. Do only light and easy activities for 2 to 3 days after the procedure. Avoid strenuous activity for 1 week after the procedure. You may shower after 24 hours. Gently wash the area and pat it dry. Please DO NOT take a bath, soak in a hot tub, or swim until the wound is completely healed. Unless told otherwise, drink 6 to 8 glasses of water a day to prevent dehydration and to help flushyour body of the dye that was used during your procedure. Take your temperature and check your incision for signs of infection (redness, swelling, or warmth at the incision site) every day for a week. If your site starts to bleed or swell (access site - wrist), keep wrist raised above the level of the heart and apply pressure to the site for 15 minutes. After the bleeding has stopped, continue to keep your arm raised and contact Interventional Radiology. If bleeding does not stop after 15 minutes, call 911 for emergency assistance or go to the closest Emergency Department. If your incision starts to bleed or swell (access site - groin), lay flat and have someone apply pressure to the incision site for 15 minutes. After the bleeding has stopped, continue to lay flat justo hour and contact Interventional Radiology. If bleeding does not stop after 15 minutes, call 911 for emergency assistance or go to the closest Emergency Department. Follow Up After your procedure you will be instructed regarding follow up treatment, imaging, or a clinic visit. You will be called with the date/time for this appointment. If you do not receive a call within 4 weeks, please call our schedulers at [phone]. When to Call Interventional Radiology Call Interventional Radiology right away if you have any of the following: Fever above 100 degrees Fahrenheit Increased bleeding, redness, swelling, warmth, or discharge at the incision site. Constant or increasing pain, numbness, coldness, or tingling around the incision area. If at any time you experience any of the following or feel you are having a medical emergency, [id number] for emergency assistance. Chest Pain Sudden, severe shortness of breath Rapid heart rate Sudden onset of weakness Coughing up blood Do not smoke or use tobacco products in any way! If you feel suicidal or homicidal, please call the crisis hotline at 1-700-661-ZOOK ([phone]) MODERATE SEDATION You may have received medication that made you comfortable/sedated you during your procedure. This is considered moderate sedation. This medication was given to relax you. You may also not remember having the procedure done. It may take up to 24 hours for this medication to be out of your system. Because of this, you should observe the following for the next 24 hours: Do not drink alcohol or take depressant drugs. Do not operate any type of machinery that requires hand-eye coordination. Do not sign any legal papers or documents. Do not make any financial decisions. You should be in the presence of an adult for the remainder of the day. If you are experiencing any problems related to your procedure, you should contact the Interventional Radiology physician unless otherwise directed. Driving: N/A. Diet: You may resume your current diet as tolerated. Return to work or school: You may return to school or work 24 hours after the procedure, unless otherwise instructed by the physician. documented in this encounter H&P Notes * Amrit Magaña MD - 04/11/2024 7:50 AM EDT HISTORY & PHYSICAL - Interventional Radiology Service 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 Blood type A+ 09/21/2023 BMI 35.0-35.9,adult Cancer, hepatocellular (HCC) Diverticulitis of colon Diverticulosis of colon DM type 2, goal A1c below 7 02/26/2010 HGBA1C 7.5 Family history of colon cancer Mother, Neema Emruchi Fracture of rib of right side 12/21/2013 cortical fx anterior right 9th rib Gout 08/08/2001 uric acid 9.0 Hepatic encephalopathy (HCC) 03/28/2022 admitted [facility], ammonia 110 Hyperlipidemia LDL goal < 100 Infection due to human metapneumovirus (hMPV) 01/27/2020 COVID neg Ingrown toenail of both feet 04/04/2022 both big toenails trimmed for ingrown nails [place] 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 [facility] Past Surgical History: Procedure Laterality Date ABD/PELVIS CT W/O IV AND W/O PO CONTRAST 03/30/2010 diverticulitis, [facility] CHG CT HEAD/BRAIN W/O CONTRAST MATERIAL 02/27/2024 no acute changes to explain encephalopathy COLONOSCOPY, DIAGNOSTIC (RECTUM) 06/07/2019 normal, repeat 5 yrs/[facility] COLORECTAL CANCER SCREEN; COLON 05/22/2010 wnl [...] performed by Gerardo Workman MD at ENDOSCOPY [facility] EGD, FLEXIBLE, DIAGNOSTIC 07/04/2023 Portal hypertensive gastropathy., esophagus and duodenuum normal (EGD), FLEXIBLE, TRANSORAL, DIAGNOSTIC performed by Juli Krause DO at ENDOSCOPY [facility] FOBT (EIA) 08/27/2023 negative IR CANCER CHEMO EMBOLIZATION (TACE) 08/02/2023 MRI ABDOMEN W CONTRAST 06/09/2023 2 spots in liver suggestive of hepatocellular carcinoma, varices, GB thickened, splenomegaly. 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: [employer] Employer: [employer] Tobacco Use Smoking status: Never Smokeless tobacco: Former Types: Chew Quit date: 05/18/2005 Vaping Use Vaping status: Never Used Substance and Sexual Activity Alcohol use: No [...] on file Housing Stability: Not on file Family History Adopted: Yes Problem Relation Name Age of Onset Hypertension Mother Neema Cancer Mother Neema colon Colon cancer Mother Neema Emphysema Father Other (black lung) Father Hypertension Father Diabetes Father Other (cornea transplant) Father Rheum arthritis Sister Armanta Hypertension Sister Armanta Irritable Bowel Syndrome Brother carin Hypertension Brother carin Diabetes Brother carin Other (pacemaker) Brother carin Liver disease Brother carin Arthritis Brother carin Other (cancer ) Brother kira back Other (sepsis) Brother kira Hypertension Brother Bill Heart attack Brother Bill Diabetes Brother Bill Hyperlipidemia Brother Bill No Known Problems Brothmarquise Carmona Review of patient's allergies indicates: Allergen Reactions Aspirin Other reaction(s): bloody nose Salicylates nose bleeds No current facility-administered medications for this encounter. REVIEW OF SYSTEMS: Constitutional: (-) fever chills sweats or weight loss Cardiovascular: (-) negative: no chest pain, dyspnea, syncope, or palpitations Pulmonary: (-) negative: no cough, wheezing, or shortness of breath OBJECTIVE: BP 102/49 | Pulse 72 | Temp 35.7 C (96.3 F) (Tympanic) | Resp 13 | SpO2 100% PHYSICAL EXAM: Constitutional: no acute distress CV: normal rate and rhythm, no murmur, gallops or rub Chest: normal respiratory effort, lungs clear to auscultation and percussion LABS: CBC Results: PT INR Results: Results for orders placed or performed in visit on 02/08/24 PT INR Result Value Ref Range Prothrombin Time 21.8 (H) 11.6 - 15.2 seconds INR 1.9 (H) 0.8 - 1.2 Results for orders placed or performed in visit on 11/09/23 PT INR Result Value Ref Range Prothrombin Time 20.6 (H) 11.6 - 15.2 seconds INR 1.8 (H) 0.8 - 1.2 Results for orders placed or performed in visit on 10/19/23 PT INR Result Value Ref Range Prothrombin Time 21.4 (H) 11.6 - 15.2 seconds INR 1.8 (H) 0.8 - 1.2 BUN Results: Lab Results Component Value Date/Time BUN - [facility] 20 04/11/2024 07:09 AM BUN - [facility] 11 02/08/2024 09:44 AM BUN - [facility] 12 11/21/2023 11:30 AM BUN - [facility] 14 11/24/2020 08:53 AM BUN - [facility] 16 08/25/2010 09:49 AM BUN - [facility] 12 02/26/2010 08:13 AM Creatinine Results: Lab Results Component Value Date/Time CREATININE - [facility] 1.0 04/11/2024 07:09 AM CREATININE - [facility] 1.0 02/08/2024 09:44 AM CREATININE - [facility] 1.0 11/21/2023 11:30 AM CREATININE - [facility] 0.9 11/24/2020 08:53 AM CREATININE - [facility] 0.8 08/25/2010 09:49 AM CREATININE - [facility] 0.9 02/26/2010 08:13 AM CREATININE, RANDOM URINE - [facility] 201 12/06/2022 09:06 AM CREATININE, RANDOM URINE - [facility] 151 11/03/2021 09:44 AM CREATININE, RANDOM URINE - [facility] 171 04/29/2021 03:07 PM CREATININE, RANDOM URINE - [facility] 172 05/21/2020 10:26 AM CREATININE, RANDOM URINE - [facility] 200 02/24/2011 11:30 AM CREATININE, RANDOM URINE - [facility] 374 02/26/2010 08:13 AM CREATININE-OUTSIDE LAB 0.89 01/24/2024 12:00 AM CREATININE-OUTSIDE LAB 0.94 04/23/2021 12:00 AM CREATININE-OUTSIDE LAB 0.96 10/09/2019 12:00 AM Potassium Results: Lab Results Component Value Date/Time POTASSIUM - [facility] 4.2 04/11/2024 07:09 AM POTASSIUM - [facility] 4.1 02/08/2024 09:44 AM POTASSIUM - [facility] 3.5 11/21/2023 11:30 AM POTASSIUM - [facility] 3.7 11/24/2020 08:53 AM POTASSIUM - [facility] 3.6 08/25/2010 09:49 AM POTASSIUM - [facility] 4.1 02/26/2010 08:13 AM POTASSIUM, RANDOM URINE - [facility] 52.5 02/08/2024 01:27 PM POTASSIUM-OUTSIDE LAB 3.6 01/24/2024 12:00 AM POTASSIUM-OUTSIDE LAB 3.8 04/23/2021 12:00 AM POTASSIUM-OUTSIDE LAB 3.6 10/09/2019 12:00 AM INFORMED CONSENT: Yes PRE-SEDATION ASSESSMENT: Difficulty with sedation / anesthesia: No Sleep apnea: No History of snoring: Yes History of difficult intubation: No Decreased ROM neck flexion/extension: No Tracheal deviation: No Decreased ability to open mouth / TMJ: Yes Loose teeth / dentures / partial: No Congenital deformities / abnormalities: No Dysphagia: No Comments: Jaw is sore from receding gum line Mallampati Classification: III - soft palate, base of uvula visible Chest: Clear Heart: Regular Rhythm ASA Risk Stratification ([facility]): ASA 2 - Mild systemic disease, no functional limitations IMPRESSION/PLAN: GONZALES with 2 tumors bland scoobyo Amrit Magaña MD documented in this encounter Nursing Notes * Lata Gupta RN - 04/11/2024 1:25 PM EDT DISCHARGE - POST INTERVENTIONAL RADIOLOGY PROCEDURE Patient meets discharge criteria for Interventional Radiology. Vital signs stable. Dressing clean, dry, and intact. IV site removed. Patient awake and oriented to pre procedure baseline. Discharge instructions given, no questions at this time. Patient tolerating liquids, with no nausea/vomiting. All belongings sent with patient. Discharged to home. Vital Signs: BP: 115/60 (04/11/24 1200) Temp: 36.2 C (97.2 F) (04/11/24 1030) Pulse: 75 (04/11/24 1200) Resp: 14 (04/11/24 1200) SpO2: 100 % (04/11/24 1200) Neurological: [place] Coma Scale Eyes Open: Spontaneous (04/11/24 1026) Best Verbal Response: Verbally appropriate for age (04/11/24 1026) Best Motor Response: Obeys commands appropriate for age (04/11/24 1026) Coma Score: 15 (04/11/24 1026) Activity: Four Extremities LOC: Fully Awake or Pre-Anesthetic Level of Consciousness BP: Less than (+/-) 20% Resp: Deep Breathe and Cough Freely (04/11 1026) Respiratory: Pain Assessment Flowsheet Row Most Recent Value Pain Assessment Scale [facility] Adult Scale 0-10 Pain Score 0 (no pain) * Maria Elena John LPN - 04/11/2024 8:30 AM EDT Attempted to contact patient to complete pre operative instructions for Interventional Radiology procedure, did not answer the phone. Message left with instructions regarding arrival time of 0700, medications and NPO status. Made aware of need for a shuttle truck driver. Instructed to return call to IR nurse at [phone] and leave a message on voicemail if necessary. Will attempt again at later time. * Maria Elena John LPN - 04/11/2024 8:30 AM EDT PRE PROCEDURE SEDATION ASSESSMENT [facility] INTERVENTIONAL RADIOLOGY Information obtained via phone call? yes/no: yes Chart review? yes/no: no Spoke with patient/caregiver(name)? yes/no: patient IR procedure to be performed: Lasalle Embo Patient with recent illness (within 2 weeks): yes/no: no Sleep apnea? yes/no: no Uses cpap/bipap? yes/no: no Home O2 use(LPM)? yes/no: no Difficulty breathing when lying flat? yes/no: no Infectious Disease? (MRSA, VRE, CDIFF, TB, Hepatitis, HIV/Aids, COVID-19 other): yes/no: no History of falls (past 6 months)? yes/no: yes Ambulation aid (walker, cane, crutches, wheelchair)? yes/no: yes cane History of anesthesia complications (prolonged awakening, PONV, difficult airway)? yes/no: no Able to fully extend neck, turn head side to side and open mouth? yes/no: yes If female (11-55) chance of ? not applicable Contrast Dye Allergy? yes/no: no Allergy prepped ordered ? NO Review of systems Pulmonary complications? (COPD/Emphysema, Asthma, Oxygen use, tobacco history, shortness of breath,PE, Pulm HTN): yes/no: no Cardiovascular complications? (HTN, Pacemaker/defib, PA, Arrhythmia, CHF, Heart Murmur, Heart surgery): yes/no: yes Primary hypertension Aortic stenosis, moderate Metabolic/Diabetes history? (Diabetes, steroid use, thyroid disease, obesity): yes/no: yes Type 2 diabetes mellitus with hemoglobin A1c goal of less than 7.0% (HCC) Hyperlipidemia with target LDL less than 100 Chronic idiopathic gout involving toe without tophus Hepatic encephalopathy (HCC) Hematology/Oncology complications? (Anemia, bleeding/clotting disorder, anticoagulation/coagulopathy, cancer): yes/no: yes Thrombocytopenia (HCC) Gastrointestinal complications? 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 (Fibroids, PCOS) not applicable Genitourinary complications? (Kidney, bladder, prostate) yes/no: yes BPH without obstruction/lower urinary tract symptoms Musculoskeletal complications? (Arthritis, contractions, amputations, other bone/joint): yes/no: no Neuro/Psych complications? (Seizures, stroke, mental handicap, paralysis, neuropathy, depression, anxiety, migraines, substance abuse): yes/no: no * Carina Page RN - 04/11/2024 8:16 AM EDT farm appraiser note Name: Lloyd Spencer Date: 04/11/2024 Procedure: Liver Directed Lasalle Embolization Patient ID band checked using two identifiers. Patient placed on procedure table, supine position, with comfort measures intact and safety strap in place. Hemodynamic monitoring placed and initiated.Distal pulses palpable and marked. Patient denies any complaints at current time. RT staff preps for procedure. Reevaluation statement: RN received verbal confirmation that the patient was reevaluated by Dr. Amrit Magaña immediately prior to the sedation at 8:29 AM . 8:20 AM 8 mg of Zofran and 50 mg of Benadryl given per order of physician - see MAR. 8:29 AM 50 mcg of Fentanyl and 1 mg of Versed given per order of physician. Order was verbalized and verified with Dr. Amrit Magaña prior to administration. 8:33 AM Timeout performed by Dr. Amrit Magaña. 8:37 AM Procedure started by Dr. Amrit Magaña, and scrubbed RT Otto. Ultrasound utilized for anatomical analysis of patient and access needle guidance. 1% buffered lidocaine given by doctor at rightgroin site. 8:39 AM Access obtained. Guidewire inserted. Images obtained. 8:45 AM Imaging with contrast obtained. 8:[address] images obtained. 8:57 AM 20 mg of Decadron given per order of physician - see MAR. 9:[address] images obtained. 9:10 AM Imaging continues. Patient resting comfortably. 9:[address] images obtained. 9:19 AM 100 mcg of Nitroglycerin given via access by Dr. Amrit Magaña. 9:[address] images obtained. 9:31 AM 100 mcg of Nitroglycerin given via access by Dr. Amrit Magaña. 9:[address] images obtained. 9:39 AM Report given to ELOISE Trujillo. farm appraiser note 9:39 AM Report received from ELOISE Finney. 9:41 AM Lipiodol injected via access by Dr. Amrit Magaña. 9:[address] imaging obtained. 9:54 AM Lipiodol injected via access by Dr. Amrit Magaña. 9:57 AM Embospheres 100-300 um (Lot: [id number] EXP:2026-12-27) deployed. Images obtained. See implants record for details. 10:[address] imaging obtained. 10:10 AM 25 mcg Fentanyl given per order of Dr. Amrit Magaña. Order was verbalized and verified with same provider prior to administration. 10:16 AM Mynx closure device placed. Access removed and manual pressure to site. 10:18 AM Area cleaned. Gauze and tegaderm applied. Distal pulse present. Patient tolerated procedure well without complications. All wires, catheters, sheaths and other devices have been inspected prior to the procedure for damage. This has been confirmed by the scrubbed RT and the operating physician. All items not intended to remain in the patient have been inspected, accounted for and have been removed from the patient atthe end of the procedure. This has been confirmed by the scrubbed RT and the operating physician. Pt did receive conscious sedation for their procedure, and was sedated from 8:29 AM to 10:26 AM. Total medications given Versed: 1 mg Fentanyl: 75 mcg Benadryl: 50 mg Unasyn: 3 g Zofran: 8 mg Decadron: 20 mg Nitroglycerin: 200 mL (100 mcg/mL) 1% buffered lidocaine: 3 mL Please see doctor's operative note for additional details. documented in this encounter Plan of Treatment Upcoming Encounters Date Type Department Care Team (Latest Contact Info) Description 04/19/2024 1:00 PM EDT Office Visit Pharmacy, [address] [place] [address] [place] [address] 05/17/2024 10:30 AM EDT Imaging [facility] 2nd Floor Cardiology, [place] [address] [place] [address] Gw, Excess Time Radiology [address] [place] [address] 06/11/2024 9:00 AM EDT Office Visit Gastroenterology , [facility] [address] [place] [address] Ren Pineda CRNP [address] [place] [address] 06/24/2024 8:20 AM EDT Office Visit Family [address] [place] [phone] Krystian Palomo MD [address] [place] [address] [place] [address] 07/03/2024 1:30 PM EDT Hospital Encounter ENDO [facility], Endoscopy Room [facility] [place] [id number] Jayla Armstrong MD [address] [place] [address] 07/03/2024 1:30 PM EDT - 07/03/2024 2:00 PM EDT Surgery ENDO OSS, Endoscopy Room [facility] [address] [place] [id number] Jayla Armstrong MD [address] [place] [id number] ESOPHAGOGASTRODUODENOSCOPY (EGD), FLEXIBLE, TRANSORAL, DIAGNOSTIC Pending Results Name Type Priority Associated Diagnoses Date /Time IR CANCER CHEMO EMBOLIZATION (TACE) Medical Imaging Routine Hepatocellular carcinoma (HCC) 04/11/2024 10:12 AM EDT Scheduled Orders Name Type Priority Associated Diagnoses Order Schedule IR CANCER CHEMO EMBOLIZATION (TACE) Medical Imaging Routine Hepatocellular carcinoma (HCC) 1 Occurrences starting 04/11/2024 until 04/11/2024 Scheduled Procedures Name Priority Associated Diagnoses Date/Ti [...] 03/16/2021, Additional history exists GFR 04/11/2025 04/11/2024, 04/10/2023, 01/24/2024, Additional history exists Lipid Panel 09/18/2028 09/18/2023, 05/31, 03/09/2022, Additional history exists Colonoscopy 01/10/2029 01/11/2024, 06/2019, 05/21/2010 Colorectal Cancer Screening 01/10/2029 Influenza Vaccine [...] this encounter Medical Devices Implanted Type Area Extrusion Line Operator Device Identifier Shelf Expiration Date Model / Serial / Lot Lipiodol Injection - [id number] Implanted:Qty: 1 on 08/02/[address] [facility] [employer] 04/28/2026 [id number] Syr Pf 2ml Embospheres 100-300 - [id number] Implanted:Qty: 1 on 08/02/2023 at [facility] [employer] [id number] 02/26/2026 S220GH / / [id number] Syr Pf 2ml Embospheres 100-300 - [id number] Implanted:Qty: 1 on 04/11/2024 at [facility] [employer] [id number] 12/27/2026 S220GH / / [id number] documented as of this encounter Visit Diagnoses Diagnosis Hepatocellular carcinoma (HCC) Malignant neoplasm of liver, primary Rios's esophagus documented in this encounter Administered Medications Inactive Administered Medications - up to 3 most recent administrations Medication Order MAR Action Action Date Dose Rate Site ampicillin-sulbactam in NSS (Unasyn) ivpb 3 g 3 g, IV Piggyback, ONCE, 1 dose, On Kayleigh 04/11/24 at 0830, MIX BEFORE ADMINISTERING! New Bag 04/11/2024 8:08 AM EDT 3 g 210 mL/hr buffered lidocaine 1 % inj Intradermal, ONCE PRN INTRA PROCEDURE, Starting on Kayleigh 04/11/24 at 0837, Until Kayleigh 04/11/24 at 0837, Intra-Op Given 04/11/2024 8:37 AM EDT 3 mL Other-Specify dexamethasone sodium phosphate 20 mg in NSS 50 mL ivpb 20 mg, IV Piggyback, ONCE, On Kayleigh 04/11/24 at 0830, For 1 dose, PROTECT FROM LIGHT Infuse over 30 minutes! New Bag 04/11/2024 8:57 AM EDT 20 mg 108 mL/hr diphenhydrAMINE (Benadryl) inj 50 mg 50 mg, Intravenous, ONCE, On Kayleigh 04/11/24 at 0830, For 1 dose Given 04/11/2024 8:20 AM EDT 50 mg fentaNYL (PF) inj ONCE PRN INTRA PROCEDURE, Starting on Kayleigh 04/11/24 at 0829, Until Kayleigh 04/11/24 at 1010, Intra-Op Given 04/11/2024 10:10 AM EDT 25 mcg Given 04/11/2024 8:29 AM EDT 50 mcg Iopamidol (Isovue 370) inj 200 mL 200 mL, Intravenous, ONCE, On Kayleigh 04/11/24 at 1045, For 1 dose Given 04/11/2024 10:45 AM EDT 60 mL midazolam (Versed) 2 MG/2ML inj ONCE PRN INTRA PROCEDURE, Starting on Kayleigh 04/11/24 at 0829, Until Kayleigh 04/11/24 at 0829, Intra-Op Given 04/11/2024 8:29 AM EDT 1 mg nitroglycerin (100 mcg/mL) inj ONCE PRN INTRA PROCEDURE, Starting on Kayleigh 04/11/24 at 0919, Until Kayleigh 04/11/24 at 0931, Intra-Op Given 04/11/2024 9:31 AM EDT 100 mcg Oth er-Specify Given 04/11/2024 9:19 AM EDT 100 mcg Ot her-Specify NSS infusion Intravenous, at 125 mL/hr, CONTINUOUS, Starting on Kayleigh 04/11/24 at 0830, Until Kayleigh 04/11/24 at 1727 New Bag 04/11/2024 8:07 AM EDT 125 mL/hr ondansetron (Zofran) inj 8 mg 8 mg, IV Push, ONCE, On Kayleigh 04/11/24 at 0830, For 1 dose Given 04/11/2024 8:20 AM EDT 8 mg documented in this encounter Active and Recently Administered Medications Times are shown in EDT. Scheduled Medication Order 04/09/2024 04/10/2024 04/11/2024 ampicillin-sulbactam in NSS (Unasyn) ivpb 3 g (COMPLETED) 3 g, IV Piggyback, ONCE, 1 dose, On Kayleigh 04/11/24 at 0830, MIX BEFORE ADMINISTERING! 0808 (New Bag - Prov ider: Marina Sandoval, ELOISE) dexamethasone sodium phosphate 20 mg in NSS 50 mL ivpb (COMPLETED) 20 mg, IV Piggyback, ONCE, On Kayleigh 04/11/24 at 0830, For 1 dose, PROTECT FROM LIGHT Infuse over 30 minutes! 0857 (New Bag - Prov ider: Sharmin Vicente RN) diphenhydrAMINE (Benadryl) inj 50 mg (COMPLETED) 50 mg, Intravenous, ONCE, On Kayleigh 04/11/24 at 0830, For 1 dose 0820 (Given - Provid er: Sharmin Vicente RN) Iopamidol (Isovue 370) inj 200 mL (COMPLETED) 200 mL, Intravenous, ONCE, On Kayleigh 04/11/24 at 1045, For 1 dose 1045 (Given - Provid er: Marisa Galindo, RT (R)) ondansetron (Zofran) inj 8 mg (COMPLETED) 8 mg, IV Push, ONCE, On Kayleigh 04/11/24 at 0830, For 1 dose 0820 (Given - Provid er: Sharmin Vicente RN) Continuous Medication Order 04/09/2024 04/10/2024 04/11/2024 NSS infusion Intravenous, at 125 mL/hr, CONTINUOUS, Starting on Kayleigh 04/11/24 at 0830, Until Kayleigh 04/11/24 at 1727 0807 (New Bag - Prov ider: Marina Sandoval, ELOISE) PRN Medication Order 04/09/2024 04/10/2024 04/11/2024 buffered lidocaine 1 % inj (COMPLETED) Intradermal, ONCE PRN INTRA PROCEDURE, Starting on Kayleigh 04/11/24 at 0837, Until Kayleigh 04/11/24 at 0837, Intra-Op 0837 (Given - Provid er: Amrit Magaña MD - Comment: R groin during IR bland embo) fentaNYL (PF) inj (COMPLETED) ONCE PRN INTRA PROCEDURE, Starting on Kayleigh 04/11/24 at 0829, Until Kayleigh 04/11/24 at 1010, Intra-Op 0829 (Given - Provid er: Sharmin Vicente, ELOISE)1010 (Given - Provider: Carina Page RN) midazolam (Versed) 2 MG/2ML inj (COMPLETED) ONCE PRN INTRA PROCEDURE, Starting on Kayleigh 04/11/24 at 0829, Until Kayleigh 04/11/24 at 0829, Intra-Op 0829 (Given - Provid er: Sharmin Vicente RN) nitroglycerin (100 mcg/mL) inj (COMPLETED) ONCE PRN INTRA PROCEDURE, Starting on Kayleigh 04/11/24 at 0919, Until Kayleigh 04/11/24 at 0931, Intra-Op 0919 (Given - Provid er: Amrit Magaña MD - Comment: given via R groin access during IR bland embo)0931 (Given - Provider: Amrit Magaña MD - Comment: given via R groin access during IR bland embo) documented in this encounter Care Teams Automatic Buffer Relationship Specialty Start Date End Date Krystian Palomo MD [address] [place] [address] [place] [phone] PCP - General Family Medicine 12/22/23 documented as of this encounter"
--- OUTSIDE RECORDS SUMMARY | 2024-05-26 17:25 | External Medical Summary ---
Author Name Unknown Address Unknown Organization K01:[facility] - [address] [place] [address] Laboratory Report Ordering Provider Test Date Status FRANCISCA LUIS 04/11/2024 07:09:18 Final Observation Date Value Abnormality Reference (Units ) Status Bilirubin, Direct 04/11/2024 07:09:18 1.1 Above high normal 0.0-0.3 (mg/dL) Final Result may be falsely decrea sed due to hemolysis. Performing Location [facility] - [address] [place] [address]
--- OUTSIDE RECORDS SUMMARY | 2024-05-26 17:25 | External Medical Summary | Summary of Care ---
Author Name Unknown Organization [facility] Address [address] [address] Phone [phone] Care Team Providers Care Contracts Attorney Name Role Phone Krystian Palomo MD Primary Care Provide r Encounter Details Date Type Department Care Team (Late st Contact Info) Description 04/15/2024 Result Scan Unspecified Department Ren Pineda CRNP [address] [place] [address] <No scans attached> Allergies Active Allergy Reactions Criticality Noted Date Comments Aspirin 01/28/2022 Other reaction(s): bloody nose Salicylates 08/08/2001 nose bleeds documented as of this encounter (statuses as of 04/16/2024) Medications Medication Sig Dispensed Refills Start Date [...] 180 Tablet 1 03/04/2024 Active Dexcom G7 Job Analyst Device Use as directed to monitor blood sugars 1 Each 03/06/2024 Active Dexcom G7 Sensor Use as directed to monitor blood sugars. Change every 10 days. 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 07/05/2023 Hepatic encephalopathy 03/28/2022 Overview: admitted [facility], ammonia 110 Aortic stenosis, moderate 01/21/2022 Thrombocytopenia [...] as of this encounter (statuses as of 04/16/2024) Resolved Problems Problem Noted Date Diagnosed Date [...] as of this encounter (statuses as of 04/16/2024) Immunizations Name Administration Dates Next Due COVID-19 [...] 04/19/2024 1:00 PM EDT Office Visit Pharmacy, [address] [place] [phone] [place] [address] 05/17/2024 10:30 AM EDT Imaging [facility]nd [facility] [address] [facility] [place] [address] Gw, Excess Time Radiology [address] [facility] [place] [address] 05/23/2024 9:30 AM EDT Appointment Interventional Radiology [facility] 1st Floor [address] [facility] [place] [phone] 06/11/2024 9:00 AM EDT Office Visit Gastroenterolog y, [facility] [address] [facility] [place] [address] Ren Pineda CRNP [address] [place] [address] 06/24/2024 8:20 AM EDT Office Visit Family [address] [place] [phone] Krystian Palomo MD [address] [place] [address] [place] [address] 07/03/2024 1:30 PM EDT Hospital Encounter ENDO [facility], Endoscopy Room [facility] [address] [place] [phone] Jayla Armstrong MD [address] [place] [address] 07/03/2024 1:30 PM EDT - 07/03/2024 2:00 PM EDT Surgery ENDO [facility], Endoscopy Room [facility] [address] [place] [phone] Jayla Armstrong MD [address] [place] [phone] ESOPHAGOGASTRODUODENOSCOPY (EGD), FLEXIBLE, TRANSORAL, DIAGNOSTIC Scheduled Procedures [...] 03/16/2021, Additional history exists GFR 04/11/2025 04/11/2024, 0410/2023, 01/24/2024, Additional history exists Lipid Panel 09/18/2028 [...] this encounter Medical Devices Implanted Type Area Rock Wool Applicator Device Identifier Shelf Expiration Date Model / Serial / Lot Lipiodol Injection - [id number] Implanted:Qty: 1 on 08/02/2023 at [facility] [employer] 04/28/2026 [id number] 1 -[id number] Syr Pf 2ml Embospheres 100-300 - [id number] Implanted:Qty: 1 on 08/02/2023 at [facility] [employer] [id number] 02/26/2026 S220GH / / [id number] Syr Pf 2ml Embospheres 100-300 - [id number] Implanted:Qty: 1 on 04/11/2024 at [facility] [employer] [id number] 12/27/2026 S220GH / / [id number] Lipiodol Injection - [id number] Implanted:Qty: 1 on 04/11/2024 at [facility] [employer] [id number] 1 -2 documented as of this encounter Procedures Procedure Name Priority Date/Time Associated Diagnosis Comments RADIOLOGY SCANNED RESULT 04/15/2024 documented in this encounter Results * RADIOLOGY SCANNED RESULT (04/15/2024) 04/15/2024 Ren [facility] documented in this encounter Care Teams Contracts Attorney Relationship Specialty Start Date End Date Krystian Palomo MD [address] [place] [address] [place] [address] PCP - General Family Medicine 12/22/23 documented as of this encounter
--- OUTSIDE RECORDS SUMMARY | 2024-05-26 17:25 | External Medical Summary | Summary of Care ---
Author Name Unknown Organization [facility] Address [address] [facility] [place] [address] Phone [phone] Care Team Providers Care Mill Platform Supervisor Name Role Phone Krystian Palomo MD Primary Care Provide r Reason for Visit * Reason Comments Dosage Adjustment In Person (Anticoag Cl inic) Diabetes Follow-Up Encounter Details Date Type Department Care Team (Late st Contact Info) Description 05/03/2024 11:00 AM EDT Office Visit Pharmacy, [address] [place] [phone] [place] [address] Type 2 diabetes mellitus with hemoglobin A1c goal of less than 7.0% (HCC)* Allergies Active Allergy Reactions Criticality Noted Date Comments Aspirin 01/28/2022 Other reaction(s): bloody nose Salicylates 08/08/2001 nose bleeds documented as of this encounter (statuses as of 05/03/2024) Medications Medication Sig Dispensed Refills Start Date [...] 180 Tablet 1 03/04/2024 Active Dexcom G7 Wire Sawyer Device Use as directed to monitor blood [...] daily. 15 mL 3 04/19/2024 Active Pen Willis 32G X 4 MM Use as directed. Use to inject insulin once daily. 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 Medication Therapy Disease Management [facility] - Diabetes Management Progress Note Lloyd Spencer, identified by name and date of , is a 58 year old male being seen for diabetes management/education. Patient presents for return diabetic visit. DIABETES: Current diabetic medications: Metformin HCl 500mg BID START Lantus 10 units daily STOP Glimepiride 1mg daily eGFR 86 as of 02/08/24 Medication Injection Site: Abdomen Lifestyle: Diet: unchanged Glucose Review/SMBG: Readings obtained from patient device Hypoglycemia: Does your blood sugar go below 70 mg/dL? No Hyperglycemia symptoms present: none Recent Labs Units 04/19/24 1324 01/05/24 0822 09/18/23 1141 HEMOGLOBIN A1C - [facility] % 8.4* 7.0* 5.9* Recent Labs Units 04/11/24 0709 02/08/24 0944 01/24/24 0000 ESTIMATED GLOMERULAR FILTRATION RATE - [facility] mL/min 88 86 -- EGFR-OUTSIDE LAB ML/MIN/1.73M2 -- -- 93.6 CREATININE - [facility] mg/dL 1.0 1.0 -- CREATININE-OUTSIDE LAB MG/DL -- -- 0.89 HYPERTENSION: Patient on ACEi/ARB: yes BP Readings from Last 3 Encounters: 04/11/24 112/57 03/15/24 99/58 03/04/24 110/60 Blood pressure at goal: yes HYPERLIPIDEMIA: Patient is taking moderate or high intensity statin: yes HEALTH MAINTENANCE REVIEW: Health Maintenance Due Topic Date Due Zoster Vaccines (1 of 2) Never done Pneumococcal Vaccine: Pediatrics (0 to 5 Years) and At-Risk Patients (6 to 64 Years) (2 of 2 - PCV)12/24/2014 Depression Screening 05/21/2021 DTaP,Tdap,and Td Vaccines (2 - Td or Tdap) 07/13/2021 COVID-19 Vaccine ( - 2022- season) 2023 Albumin/Creatinine Ratio 12/06/2023 B-12 12/06/2023 ASSESSMENT & PLAN: ICD-10-CM 1. Type 2 diabetes mellitus with hemoglobin A1c goal of less than 7.0% (HCC) E11.9 Considerations: Hepatocellular carcinoma Recent admission for hepatic encephalopathy, A1c increased to 8.4% ([facility] 02/26 - 02/28) Dexcom G7 --> Pharmacy Ozempic hesitancy due to constipation risk/concern BG Readings - Blood sugars showing significant improvement per Dexcom download. Medications - Reviewed current regimen, patient is adherent to regimen. Tolerating well. Diet, Exercise, Lifestyle - No significant lifestyle changes since last visit. Will plan to continue current regimen at this time. Patient to contact clinic with any consistent hypo- or hyper-glycemia prior to next appointment. Patient is agreeable to SMBG daily with CGM (Dexcom G7) Patient aware to contact clinic if any hypoglycemia before next visit. MEDICATION CHANGES: no change Diabetic Medications: Metformin HCl 500mg BID Lantus 10 units daily eGFR 86 as of 02/08/24 HEALTH MAINTENANCE INTERVENTIONS: Labs: Up to Date Immunizations: pneumo, tdap, covid Foot Exam: Up to Date Eye Exam: Up to Date Annual Wellness Visit: N/A FOLLOW UP: Return to clinic in 5 weeks 06/07/2024 Crystal Lang [facility] Clinical Pharmacist - Pen And Pencil Repairer Medication Therapy Management Clinic 05/03/2024, 10:59 AM documented in this encounter Plan of Treatment Upcoming Encounters Date Type Department Care Team (Latest Contact Info) Description 05/17/2024 10:30 AM EDT Imaging [facility] 2nd Floor Cardiology, [place] [address] [place] [phone] Gw, Excess Time Radiology 132 [place] [address] 05/23/2024 11:00 AM EDT Appointment Interventional Radiology [facility] 1st Floor [address] [facility] [address] 06/07/2024 11:00 AM EDT Office Visit Pharmacy, [address] [place] [address] [place] [address] 06/11/2024 9:00 AM EDT Office Visit Gastroenterolog y, [facility] [address] [place] [address] Ren Pineda CRNP 132 [place] [address] 06/24/2024 8:20 AM EDT Office Visit Family Medicine [address] [place] [address] Krystian Palomo MD [address] [place] [address] [place] [address] 07/03/2024 1:30 PM EDT Hospital Encounter ENDO [facility], Endoscopy Room [facility] [address] [facility] [place] [phone] Jayla Armstrong MD [address] [place] [phone] 07/03/2024 1:30 PM EDT - 07/03/2024 2:00 PM EDT Surgery ENDO [facility], Endoscopy Room [facility] [address] [facility] [phone] Jayla Armstrong MD [address] [place] [address] ESOPHAGOGASTRODUODENOSCOPY (EGD), FLEXIBLE, TRANSORAL, DIAGNOSTIC Scheduled [...] 06/21/2023, 0 07/06/2022, 04/29/2021, Additional history exists Influenza Vaccine (FLU shot) (#1) 2024 07/30/2023, 06/30/2022, 07/30/2021, Additional history exists Diabetic Eye Exam 09/20/2024 09/20/2023, , 03/16/2021, Additional history exists HbA1c 10/19/2024 04/19/2024, 03/0 05/2024, 09/18/2023, Additional history exists GFR 04/11/2025 04/11/2024, 04/10/2023, 01/24/2024, Additional history exists Lipid Panel 09/18/2028 09/18/2023, 082 12/2022, 03/09/2022, Additional history exists Colonoscopy 01/10/2029 01/11/2024, 08/0 06/2019, 05/21/2010 Colorectal Cancer Screening 01/10/2029 Hepatitis B Vaccine Completed 12/06/2023, 07/05/2023, 06/06/2023, Additional history exists RETIRED - COLONOSCOPY-EVERY 5 YRS AGES 18-100 Discontinued 01/11/2024, 06/07/2019, 05/21/2010 HPV (Gardasil) Vaccine Aged Out No lo nger eligible based on patient's age to complete this topic MENINGOCOCCAL (MENACTRA/MENVEO) Aged Out No longer eligible based on patient's age to complete this topic documented as of this encounter Medical Devices Implanted Type Area Lithographic Retoucher Apprentice Device Identifier Shelf Expiration Date Model / Serial / Lot Lipiodol Injection - [id number] Implanted:Qty: 1 on 08/02/2023 at [facility] [employer] 04/28/2026 [id number] Syr Pf 2ml Embospheres 100-300 - [id number] Implanted:Qty: 1 on 08/02/2023 at [facility] [employer] [id number] 02/26/2026 S220GH / / [id number] Syr Pf 2ml Embospheres 100-300 - [id number] Implanted:Qty: 1 on 04/11/2024 at [facility] [employer] [id number] 12/27/2026 S220GH / / [id number] Lipiodol Injection - [id number] Implanted:Qty: 1 on 04/11/2024 at [facility] [employer] [id number] - documented as of this encounter Visit Diagnoses Diagnosis Type 2 diabetes mellitus with hemoglobin A1c goal of less than 7.0% (HCC)- Primary Rios's esophagus documented in this encounter Care Teams Mill Platform Supervisor Relationship Specialty Start Date End Date Krystian Palomo MD [address] [place] [address] [place] [address] PCP - General Family Medicine 12/22/23 documented as of this encounter
--- OUTSIDE RECORDS SUMMARY | 2024-05-26 17:25 | External Medical Summary | Summary of Care ---
Author Name Unknown Organization [facility] Address [address] [place] [address] Phone [phone] Care Team Providers Care Japanese Interpreter Name Role Phone Krystian Palomo MD Primary Care Provide r Encounter Details Date Type Department Care Team (Late st Contact Info) Description 04/09/2024 Orders Only Interventional Radiology [facility] [place] [facility] 1st Floor [address] [place] [address] Maria Elena John LPN Encounter for general adult medical examination w/o abnormal findings* Allergies Active Allergy Reactions Criticality Noted Date Comments Aspirin 01/28/2022 Other reaction(s): bloody nose Salicylates 08/08/2001 nose bleeds documented as of this encounter (statuses as of 04/09/2024) Medications Medication Sig Dispensed Refills Start Date [...] 180 Tablet 1 03/04/2024 Active Dexcom G7 Senior Digital Designer Device Use as directed to monitor blood sugars 1 Each 03/06/2024 Active Dexcom G7 Sensor Use as directed to monitor blood sugars. Change every 10 days. 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 07/05/2023 Hepatic encephalopathy 03/28/2022 Overview: admitted [facility], ammonia 110 Aortic stenosis, moderate [...] as of this encounter (statuses as of 04/09/2024) Resolved Problems Problem Noted Date Diagnosed Date [...] as of this encounter (statuses as of 04/09/2024) Immunizations Name Administration Dates Next Due COVID-19 [...] Contact Info) Description 04/11/2024 8:30 AM EDT Hospital Encounter Interventional Radiology [facility] [place] [facility] 1st Floor [address] [facility] [address] 04/19/2024 1:00 PM EDT Office Visit Pharmacy, [address] [place] [address] [place] [address] 05/17/2024 10:30 AM EDT Imaging [facility] 2nd Floor Cardiology, [place] [address] [place] [address] Gw, Excess Time Radiology [address] [place] [address] 06/11/2024 9:00 AM EDT Office Visit Gastroenterology , [facility] [address] [place] [address] Ren Pineda CRNP [address] [place] [address] 06/24/2024 8:20 AM EDT Office Visit Family [address] [place] [address] Krystian Palomo MD [address] [place] [address] [place] [address] 07/03/2024 1:30 PM EDT Hospital Encounter ENDO [facility], Endoscopy Room [facility] [address] [place] [phone] Jayla Armstrong MD [address] [place] [phone] 07/03/2024 1:30 PM EDT - 07/03/2024 2:00 PM EDT Surgery ENDO [facility], Endoscopy Room [facility] [address] [place] [phone] Jayla Armstrong MD [address] [employer] [place] [phone] ESOPHAGOGASTRODUODENOSCOPY (EGD), FLEXIBLE, TRANSORAL, DIAGNOSTIC Scheduled Orders Name Type Priority Associated Diagnoses Orde r Schedule CBC Lab STAT Encounter for general adult medical examination w/o abnormal findings Expected: 04/11/2024, Expires: 05/09/2024 COMPREHENSIVE METABOLIC PANEL Lab STAT Encounter for general adult medical examination w/o abnormal findings Expected: 04/11/2024, Expires: 05/09/2024 PT INR Lab STAT Encounter for general adult medical examination w/o abnormal findings Expected: 04/11/2024, Expires: 05/10/2024 BILIRUBIN, DIRECT Lab Routine Encounter for general adult medical examination w/o abnormal findings Expected: 04/11/2024, Expires: 04/09/2025 Scheduled Procedures Name Priority Associated Diagnoses Date/Ti ny ESOPHAGOGASTRODUODENOSCOPY ( EGD), FLEXIBLE, TRANSORAL, DIAGNOSTIC Rios's [...] 08/0 06/2019, 05/21/2010 Colorectal Cancer Screening 01/10/2029 Influenza [...] this encounter Medical Devices Implanted Type Area Supervisor Special Education Device Identifier Shelf Expiration Date Model / Serial / Lot Lipiodol Injection - [id number] Implanted:Qty: 1 on 08/02/2023 at [facility] [employer] 04/28/2026 [id number] Syr Pf 2ml Embospheres 100-300 - [id number] Implanted:Qty: 1 on 08/02/2023 at [facility] [employer] [id number] 02/26/2026 20 / / [id number] documented as of this encounter Visit Diagnoses Diagnosis Encounter for general adult medical examination w/o abnormal findings- Primary Unspecified general medical examination Rios's esophagus documented in this encounter Care Teams Japanese Interpreter Relationship Specialty Start Date End Date Krystian Palomo MD [address] [place] [address] [place] [address] PCP - General Family Medicine 12/22/23 documented as of this encounter
--- OUTSIDE RECORDS SUMMARY | 2024-05-26 17:25 | External Medical Summary | Summary of Care ---
Author Name Unknown Organization [facility] Address [address] [place] [address] Phone [phone] Care Team Providers Care Music Teacher Name Role Phone Krystian Palomo MD Primary Care Provide r Reason for Referral * Precert (Within 10 days (routine)) - Authorized Specialty Diagnoses / Procedures Referred By Contac t Referred To Contact Radiology Diagnoses Hepatocellular carcinoma (HCC) Procedures IR CANCER CHEMO EMBOLIZATION (TACE) Amrit Magaña MD [address] [place] [address] Referral ID Status Reason Start Date Expiration Date V isits Requested Visits Authorized [id number] Authorized 05/12/2024 [id number] Encounter Details Date Type Department Care Team (Late st Contact Info) Description 04/12/2024 Orders Only Radiology, [place] [address] [place], [place] [phone] Amrit Magaña MD [address], [place] [phone] Hepatocellular carcinoma (HCC)* Allergies Active Allergy Reactions Criticality Noted [...] 180 Tablet 1 03/04/2024 Active Dexcom G7 Lacing Cutter Device Use as directed to monitor blood [...] GONZALES 07/05/2023 Hepatic encephalopathy 03/28/2022 Overview: admitted [facility], ammonia 110 Aortic stenosis, moderate [...] 1:00 PM EDT Office Visit Pharmacy, [address] [place] [address] [place] [address] 05/17/2024 10:30 AM EDT Imaging [facility] 2nd Floor Cardiology, [address] [place] [address] Gw, Excess Time Radiology [address] [place] [address] 06/11/2024 9:00 AM EDT Office Visit Gastroenterology , [facility] [address] [place] [address] Ren Pineda CRNP [address] [place] [address] 06/24/2024 8:20 AM EDT Office Visit [address] [place] [phone] Krystian Palomo MD [address] [place] [address] [place] [address] 07/03/2024 1:30 PM EDT Hospital Encounter ENDO [facility], Endoscopy Room [facility] [address] [place] [phone] Jayla Armstrong MD [address] [place] [address] 07/03/2024 1:30 PM EDT - 07/03/2024 2:00 PM EDT Surgery ENDO [facility], Endoscopy Room [facility] [address] [place] [phone] Jayla Armstrong MD [address] [place] [address] ESOPHAGOGASTRODUODENOSCOPY (EGD), FLEXIBLE, TRANSORAL, DIAGNOSTIC Scheduled Orders Name Type Priority Associated Diagnoses Orde r Schedule IR CANCER CHEMO EMBOLIZATION (TACE) Medical Imaging Routine Hepatocellular carcinoma (HCC) Expected: 05/12/2024, Expires: 05/12/2025 Scheduled Procedures Name Priority Associated Diagnoses Date/Ti [...] this encounter Medical Devices Implanted Type Area Web Applications Administrator Device Identifier Shelf Expiration Date Model / Serial / Lot Lipiodol Injection - [id number] Implanted:Qty: 1 on 08/02/2023 at [facility] [employer] 04/28/2026 [id number] Syr Pf 2ml Embospheres 100-300 - [id number] Implanted:Qty: 1 on 08/02/2023 at [facility] [employer] [employer] [id number] 02/26/2026 S220GH / / [id number] Syr Pf 2ml Embospheres 100-300 - [id number] Implanted:Qty: 1 on 04/11/2024 at [facility] [id number] 12/27/2026 S220GH / / [id number] Lipiodol Injection - [id number] Implanted:Qty: 1 on 04/11/2024 at [facility] [employer] [id number] -2 documented as of this encounter Visit Diagnoses Diagnosis Hepatocellular carcinoma (HCC)- Primary Malignant neoplasm of liver, primary Rios's esophagus documented in this encounter Care Teams Music Teacher Relationship Specialty Start Date End Date Krystian Palomo MD [address] [place] [address] [place] [phone] PCP - General Family Medicine 12/22/23 documented as of this encounter
--- OUTSIDE RECORDS SUMMARY | 2024-05-26 17:25 | External Medical Summary | Summary of Care ---
Author Name Unknown Organization [facility] Address [address] [facility] [place] [address] Phone [phone] Care Team Providers Care Document Preparer Microfilming Name Role Phone Krystian Palomo MD Primary Care Provide r Reason for Visit * Reason Comments Dosage Adjustment In Person (Anticoag Cl inic) Diabetes Follow-Up Encounter Details Date Type Department Care Team (Late st Contact Info) Description 04/19/2024 1:00 PM EDT Office Visit Pharmacy, [address] [place] [address] [place] [address] Type 2 diabetes mellitus with hemoglobin A1c [...] 180 Tablet 1 03/04/2024 Active Dexcom G7 Employment Director Device Use as directed to monitor blood [...] daily. 15 mL 3 04/19/2024 Active Pen [place] 32G X 4 MM Use as directed. Use to inject insulin once daily. 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 Medication Therapy Disease Management Clinic - Diabetes Management Progress Note Lloyd Spencer, identified by name and date of , is a 58 year old male being seen for diabetes management/education. Patient presents for return diabetic visit. DIABETES: Current diabetic medications: Metformin HCl 500mg BID Glimepiride 1mg daily eGFR 86 as of 02/08/24 Medication Injection Site: N/A Lifestyle: Diet: unchanged Glucose Review/SMBG: Readings obtained from patient device Hypoglycemia: Does your blood sugar go below 70 mg/dL? No Hyperglycemia symptoms present: none Recent Labs Units 01/05/24 0822 09/18/23 1141 06/21/23 0949 HEMOGLOBIN A1C - [facility] % 7.0* 5.9* 6.3* Recent Labs Units 04/11/24 0709 02/08/24 0944 [...] - Td or Tdap) 07/13/2021 COVID-19 Vaccine (2022- season) 2023 Albumin/Creatinine Ratio 12/06/2023 B-12 12/06/2023 ASSESSMENT & PLAN: ICD-10-CM 1. Type 2 diabetes mellitus with hemoglobin A1c goal of less than 7.0% (HCC) E11.9 Considerations: Hepatocellular carcinoma Recent admission for hepatic encephalopathy, A1c increased to 8.4% ([facility] 02/26 - 02/28) Dexcom G7 --> Pharmacy Ozempic hesitancy due to constipation risk/concern BG Readings - Blood sugars uncontrolled. Assess Dexcom dowload. Readings averaging > 200mg/dL. Reviewed with patient. Updated A1c and C-Peptide ordered to obtain. Medications - Reviewed current regimen, patient is adherent to regimen. Tolerating well and withoutissue. Discussed concern for limited insulin production. Agreeable to obtain labs and start basal insulin today. Will plan to hold sulfonylurea upon starting to reduce hypoglycemia risk. Taught patient how to use insulin pen. Reviewed with patient individual steps to do before pen is ready to use: washing hands, removing protective seal from pen needle and screwing needle onto pen, and removing both outer and inner needle caps and making sure the dose selector is set at zero. Patient verbalized understanding and displayed successful technique. Diet, Exercise, Lifestyle - No significant lifestyle changes since last visit. Remind-me sent to follow up on lab results as well as insulin start next week. Return to clinic x2 weeks. Patient is agreeable to SMBG daily with CGM (Dexcom) Patient aware to contact clinic if any hypoglycemia before next visit. MEDICATION CHANGES: yes, see below; preferred pharmacy: [facility] Diabetic Medications: Metformin HCl 500mg BID START Lantus 10 units daily STOP Glimepiride 1mg daily eGFR 86 as of 02/08/24 HEALTH MAINTENANCE INTERVENTIONS: Deferred d/t time constraints FOLLOW UP: Return to clinic in 2 weeks 05/03/2024 Crystal Lang RP Clinical Pharmacist - Cctv Technician Medication Therapy Management Clinic 04/19/2024, 1:03 PM documented in this encounter Plan of Treatment Upcoming Encounters Date Type Department Care Team (Latest Contact Info) Description 05/03/2024 11:00 AM EDT Office Visit Pharmacy, [address] [place] [address] [place] [address] 05/17/2024 10:30 AM EDT [facility] [address] [place] [address] Gw, Excess Time Radiology [address] [place] [address] 05/23/2024 9:30 AM EDT Appointment [place]ventional [place] [facility] [place] [facility] 1st Floor [address] [facility] [address] 06/11/2024 9:00 AM EDT Office Visit Gastroenterolog y, [facility] [address] [place] [address] Ren Pineda CRNP [address] [place] [address] 06/24/2024 8:20 AM EDT Office Visit Family [address] [place] [address] Krystian Palomo MD [address] [place] [address] [place] [address] 07/03/2024 1:30 PM EDT Hospital Encounter ENDO [facility], Endoscopy Room [facility] [address] [place] [phone] Jayla Armstrong MD [address] [place] [address] 07/03/2024 1:30 PM EDT - 07/03/2024 2:00 PM EDT Surgery ENDO [facility], Endoscopy Room [facility] [address] [place] [phone] Jayla Armstrong MD [address] [place] [address] ESOPHAGOGASTRODUODENOSCOPY (EGD), FLEXIBLE, TRANSORAL, DIAGNOSTIC Pending Results Name Type Priority Associated Diagnoses Date /Time C-PEPTIDE Lab Routine Type 2 diabetes mellitus with hemoglobin A1c goal of less than 7.0% ([facility]) 04/19/2024 1:24 PM EDT HEMOGLOBIN A1C Lab Routine Type 2 diabetes mellitus with hemoglobin A1c goal of less than 7.0% ([facility]) 04/19/2024 1:24 PM EDT Scheduled Orders Name Type Priority Associated Diagnoses Orde r Schedule C-PEPTIDE Lab Routine Type 2 diabetes mellitus with hemoglobin A1c goal of less than 7.0% (HCC) Expected: 04/19/2024, Expires: 04/19/2025 HEMOGLOBIN A1C Lab Routine Type 2 diabetes mellitus with hemoglobin A1c goal of less than 7.0% (HCC) Expected: 04/19/2024, Expires: 04/19/2025 Scheduled Procedures Name Priority Associated Diagnoses Date/Ti mo ESOPHAGOGASTRODUODENOSCOPY ( EGD), FLEXIBLE, TRANSORAL, DIAGNOSTIC Rios's [...] this encounter Medical Devices Implanted Type Area Flatwork Finisher Device Identifier Shelf Expiration Date Model / Serial / Lot Lipiodol Injection - [id number] Implanted:Qty: 1 on 08/02/2023 at [facility] [employer] 04/28/2026 [id number] 1 -2 [id number] Syr Pf 2ml Embospheres 100-300 - [id number] Implanted:Qty: 1 on 08/02/2023 at [facility] [email or web address] [id number] 02/26/2026 S220GH / / [id number] Syr Pf 2ml Embospheres 100-300 - [id number] Implanted:Qty: 1 on 04/11/2024 at [facility] [email or web address] [id number] 12/27/2026 S220GH / / [id number] Lipiodol Injection - [id number] Implanted:Qty: 1 on 04/11/2024 at [facility] [employer] [id number] -2 documented as of this encounter Visit Diagnoses Diagnosis Type 2 diabetes mellitus with hemoglobin A1c goal of less than 7.0% (HCC)- Primary Rios's esophagus documented in this encounter Care Teams Document Preparer Microfilming Relationship Specialty Start Date End Date Krystian Palomo MD [address] [place] [address] [place] [phone] PCP - General Family Medicine 12/22/23 documented as of this encounter
--- OUTSIDE RECORDS SUMMARY | 2024-05-26 17:25 | External Medical Summary ---
Author Name Unknown Address Unknown Organization K01:[facility] [place] [address] [place] [address] Laboratory Report Ordering Provider Test Date Status FREDERIC RAMIREZ 04/19/2024 13:24:24 Final Observation Date Value Abnormality Reference (Units ) Status C peptide 04/19/2024 13:24:24 6.4 Above high normal 1. 1-4.4 (ng/mL) Final The above reference interval is based on fasting status. Performing Location [facility] [place] [address] [place] [address]
--- OUTSIDE RECORDS SUMMARY | 2024-05-26 17:25 | External Medical Summary | Summary of Care ---
Author Name Unknown Organization [facility] Address [address] [facility] [address] Phone [phone] Care Team Providers Care Air Analysis Technician Name Role Phone Krystian Palomo MD Primary Care Provide r Encounter Details Date Type Department Care Team (Late st Contact Info) Description 04/23/2024 Telephone Pharmacy, [address] [place] [phone] [facility] [address] [facility] [place] [address] Allergies Active Allergy Reactions Criticality Noted Date Comments Aspirin 01/28/2022 Other reaction(s): bloody nose Salicylates 08/08/2001 nose bleeds documented as of this encounter (statuses as of 04/23/2024) Medications Medication Sig Dispensed Refills Start Date [...] 180 Tablet 1 03/04/2024 Active Dexcom G7 Putty And Patch Worker Device Use as directed to monitor blood [...] daily. 15 mL 3 04/19/2024 Active Pen [place] 32G X 4 MM Use as directed. Use to inject insulin once daily. 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 He reports readings are well controlled,denies any s/sx of hypoglycemia. Will plan to follow up as previously scheduled. Aware to contact clinic sooner with any additional questions or concerns. Crystal Lang RPh, PharmD Clinical Pharmacist - High Pressure Cleaner Medication Therapy Disease Management Clinic 04/23/2024, 3:10 PM [phone] documented in this encounter Plan of Treatment Upcoming Encounters Date Type Department Care Team (Latest Contact Info) Description 05/03/2024 11:00 AM EDT Office Visit Pharmacy, [address] [place] [address] [place] [address] 05/17/2024 10:30 AM EDT Imaging [facility] 2nd Floor Cardiology, [place] [address] [facility] [place] [address] Gw, Excess Time Radiology [address] [facility] [place] [address] 05/23/2024 9:30 AM EDT Appointment Interventional Radiology [facility] [place] 1st Floor [address] [facility] [place] [address] 06/11/2024 9:00 AM EDT Office Visit Gastroenterolog y, [facility] [address] [facility] [place] [address] Ren Pineda CRNP 132 [facility] [place] [address] 06/24/2024 8:20 AM EDT Office Visit Family Medicine [address] [place] [address] Krystian Palomo MD [address] [place] [address] [place] [address] 07/03/2024 1:30 PM EDT Hospital Encounter [facility]O [facility], Endoscopy Room [facility] 132 [facility] [place] [phone] Jayla Armstrong MD [address] [place] [address] [place] [address] 07/03/2024 1:30 PM EDT - 07/03/2024 2:00 PM EDT Surgery [facility]O [facility], Endoscopy Room [facility] [address] [facility] [place] [address] Jayla Armstrong MD [address] [place] [...] 04/29/2021, Additional history exists B-12 12/06/2023 12/06/2022, 03/2 02/2022, 11/24/2020, Additional history exists Diabetic Foot Exam 06/21/2024 06/21/2023, 0 07/06/2022, 04/29/2021, Additional history exists Diabetic Eye Exam 09/20/2024 09/20/2023, , 03/16/2021, Additional history exists HbA1c 10/19/2024 04/19/2024, 03/0 05/2024, 09/18/2023, Additional history exists GFR 04/11/2025 04/11/2024, 01/28, [...] this encounter Medical Devices Implanted Type Area Machine Candle Molder Device Identifier Shelf Expiration Date Model / Serial / Lot Lipiodol Injection - [id number] Implanted:Qty: 1 on 08/02/2023 at [facility] [address] 04/28/2026 [id number] -2 [id number] Syr Pf 2ml Embospheres 100-300 - [id number] Implanted:Qty: 1 on 08/02/2023 at [facility] [employer] [id number] 02/26/2026 S220GH / / [id number] Syr Pf 2ml Embospheres 100-300 - [id number] Implanted:Qty: 1 on 04/11/2024 at [facility] [employer] [id number] 12/27/2026 S220GH / / [id number] Lipiodol Injection - [id number] Implanted:Qty: 1 on 04/11/2024 at [facility] [address] [id number] -2 / documented as of this encounter Care Teams Air Analysis Technician Relationship Specialty Start Date End Date Krystian Palomo MD [address] [place] [address] [place] [phone] PCP - General Family Medicine 12/22/23 documented as of this encounter
--- OUTSIDE RECORDS SUMMARY | 2024-05-26 17:26 | External Medical Summary | Summary of Care ---
Author Name Unknown Organization [facility] Address [address] [facility] [facility] [place] [address] Phone [phone] Care Team Providers Care Fitness/Wellness Director Name Role Phone Krystian Palomo MD Primary Care Provide r Reason for Visit * Reason Comments Follow Up Pt here for 1 month f/u for cirrhosis. Pt states he was admitted to [facility] for a couple of days about 3 weeks ago for increased ammonia level. 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 Change every 10 days. 3 Each 3 03/06/2024 Active documented as of this encounter (statuses as of 03/15/2024) Active Problems Problem Noted Date Diagnosed Date BPH without obstruction/lower urinary tract symp toms 12/22/2023 BMI 36.0-36.9,adult 10/24/2023 Overview: 266 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 07/05/2023 Hepatic encephalopathy 03/28/2022 Overview: admitted [facility], ammonia 110 Aortic stenosis, moderate 01/21/2022 [...] as of this encounter (statuses as of 03/15/2024) Resolved Problems Problem Noted Date Diagnosed Date [...] as of this encounter (statuses as of 03/15/2024) Immunizations Name Administration Dates Next Due COVID-19 [...] Sign Reading Time Taken Comments Blood Pressure 99/58 03/15/2024 8:21 AM EDT Pulse 73 03/15/2024 8:21 AM EDT Temperature 36.7 C (98.1 F) 03/15/2024 8:21 AM ED T Respiratory Rate - - Oxygen Saturation - - Inhaled Oxygen Concentration - - Weight 109.8 kg (242 lb) 03/15/2024 8:21 AM EDT Height - - Body Mass Index 33.52 03/04/2024 7:38 AM EDT documented in this encounter Patient Instructions * Patient Instructions* Ren Pineda CRNP - 03/15/2024 8:35 AM EDT To prevent hepatic encephalopathy: Take Rifaximin 550mg twice daily and lactulose 3 times day. Every evening that you did not have substantial bowel movement/s take one dulcolax pill. Still if this doesn't work, use the Fleets enema. Never let yourself go for > 24 hrs without a BM. documented in this encounter Progress Notes * Ren Pineda CRNP - 03/15/2024 8:01 AM EDT CC: Cirrhosis w Hepatic Encephalopathy, hospital follow up HPI: Recall that Mr. Lloyd Spencer is a 58 year old male pt of Stanford Mays MD with a hx of , obesity, DM-2, gout, hyperlipidemia, anaplasmosis (2019). He is a [facility] employee currently on disability for cirrhosis. Dx'ed in April 2021 when he presented w confusion. Began w ascites around Sep 2023, now managed w diuretics and paracenteses. Seeing liver transplant, not yet listed. Needs card stress test. Poor appetite Main concern is that he had a recent hospitalization for hepatic encephalopathy and the trigger seemed to be constipation. He continues w constipation despite taking lactulose regularly after the hospitalization. Complications: Liver lesions - post bland embolization CTAP w IV at [facility] 03/06/25: [facility] 1. There are scattered gas fluid levels within nondilated small bowel and fully distended right and transverse colon which is abnormal and suggests ileus and/or enteritis. There is a moderate amount of stool within a nondilated sigmoid colon and rectum. No pneumoperitoneum or abscess is seen. Some component of constipation may be present. 2. The liver is small measuring 12 cm craniocaudad. The portal vein is upper limits of normal measuring 16 mm but patent. There are numerous collateral veins extending inferiorly from the spleen measuring up to 2.3 cm in diameter the splenic vein is patent. Consider portal venous hypertension. There is a trace amount of free fluid adjacent to the liver and spleen, possible small amount of ascites. 3. 4 cm of fluid within the umbilical hernia. No bowel herniation is seen. Consider ascites. Liver Lesions MRI 11/06/23 (post bland embolization) *2.1 x 1.9 cm segment 7 post treatment cavity with heterogeneous arterial hyperenhancement and washout, although late arterial sequence is limited due to motion. (LR-TR equivocal) Stable 1.1 cm observation in segment 5 with heterogeneous enhancement and washout, previously LR-5.No new suspicious lesions. Ascites: Current diuretic dosing: furosemide 40mg/spironolactone 100 daily Most recent paracentesis 01/24/24 removal of 5.5L U/S at [facility] 01/3024 w/o significant ascites to undergo paracentesis HCC [id number] liver lesion underwent bland embolization in Aug 2023 Hepatic Encephalopathy: Hospitalized at [facility] on 02/27 for hepatic encephalopathy Rifaximin 550mg BID Lactulose - wasn't always taking regularly; now taking 3x/day at home, family making sure that he is now taking. Still, he was a bit constipated/bloating and used an enema w several large BMs. Since then still constipated. Screenings: EGD Jun 2023 w PHG, no varices. Colonoscopy in December 2023, int hem otherwise normal MELD 25 from labs at [facility] 2 wks ago: Na 127, Cr1.26, INR 1.5, T Bili 3.2 EXAM: BP 99/58 | Pulse 73 | Temp 36.7 C (98.1 F) | Wt 109.8 kg (242 lb) | BMI 33.52 kg/m | BSA 2.35m GENERAL: 58 year old male well developed and well nourished in no acute distress SKIN: no rashes, ulcers, or spider angiomata HEENT: normocephalic, sclera clear, pharynx normal NECK: supple, no lymphadenopathy, no masses or thyroid enlargement LUNGS: clear to auscultation anterior and posterior HEART: regular rate & rhythm, no murmurs and no gallops ABDOMEN: normo-active bowel sounds, soft, non-tender, non-distended no masses, no hepatosplenomegaly, no rebound or guarding, no bruits EXTREMITIES: no palmar erythema, no edema, no skin discoloration, no clubbing, no cyanosis NEURO: no lateralizing findings, Sensory/Motor grossly normal IMPRESSION/RECOMMENDATIONS: 58 year old male with 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 - To prevent hepatic encephalopathy: Take Rifaximin 550mg twice daily and lactulose 3 times day. Every evening that you did not have substantial bowel movement/s take one dulcolax pill. Still if this doesn't work, use the Fleets enema. Never let yourself go for > 24 hrs without a BM. Has telephone visit w Dr. Magaña, one 03/21/24 for surveillance/hx of HCC. Had CT w IV at [facility] 2 wksago w/o mention of lesions. Recheck in GI clinic in May as previously scheduled. Call sooner if any worsening symptoms. To ED if yellow eyes/skin, if blood in BMs or vomiting blood, if confusion. Has paracentesis ordered buton diuretics and compliance on low Na diet, is not accumulating fluid. I spent a total of 30 minutes [...] documented in this encounter Nursing Notes * Linda Manuel CMA - 03/15/2024 8:21 AM EDT Chief Complaint Patient presents with Follow Up Pt here for 1 month f/u for cirrhosis. Pt states he was admitted to [facility] for a couple of days about3 weeks ago for increased ammonia level. documented in this encounter Plan of Treatment Upcoming Encounters Date Type Department Care Team (Latest Contact Info) Description 4 3:30 PM EDT [facility] [address] [place] [address] Amrit Magaña MD [address] [place], [place] [id number] 4 1:00 PM EDT Office Visit Pharmacy, [address] [place] [id number] [place] [address] 4 9:00 AM EDT Office Visit Gastroenterolog y, [facility] [address] [facility] [place] [address] Ren Pineda CRNP [address] [place] [address] 4 8:20 AM EDT Office Visit Family Medicine [address] [place] [phone] Krystian Palomo MD [address] [place] [address] [place] [address] 4 1:30 PM EDT Hospital Encounter ENDO [facility], Endoscopy Room [facility] [address] [place] [phone] Jayla Armstrong MD [address] [place] [address] 4 1:30 PM EDT - 4 2:00 PM EDT Surgery ENDO [facility], Endoscopy Room [facility] [address] [place] [phone] Jayla Armstrong MD [address] [place] [address] ESOPHAGOGASTRODUODENOSCOPY (EGD), FLEXIBLE, TRANSORAL, DIAGNOSTIC Scheduled [...] this encounter Medical Devices Implanted Type Area Clay Burner Device Identifier Shelf Expiration Date Model / Serial / Lot Lipiodol Injection - [id number] Implanted:Qty: 1 on 08/02/2023 at [facility] [employer] 04/28/2026 [id number] Syr Pf 2ml Embospheres 100-300 - [id number] Implanted:Qty: 1 on 08/02/2023 at [facility] [employer] [id number] 02/26/2026 [id number] / / [id number] documented as of this encounter Visit Diagnoses Diagnosis 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
--- OUTSIDE RECORDS SUMMARY | 2024-05-26 17:26 | External Medical Summary | Summary of Care ---
Author Name Unknown Organization [facility] Address [address] [address] Phone [phone] Care Team Providers Care Induction Heating Equipment Setter Name Role Phone Krystian Palomo MD Primary Care Provide r Encounter Details Date Type Department Care Team (Late st Contact Info) Description 04/02/2024 Result Scan Unspecified Department Ren Pineda CRNP [address] [place] [address] <No scans attached> Allergies Active Allergy Reactions [...] run at 100/hr. 100 mL 11/09/2023 Active Furosemide 40 MG Oral Tablet [...] 180 Tablet 1 03/04/2024 Active Dexcom G7 Ash Handler Device Use as directed to monitor blood [...] GONZALES 07/05/2023 Hepatic encephalopathy 03/28/2022 Overview: admitted [facility], ammonia 110 Aortic stenosis, moderate [...] 04/11/2024 8:30 AM EDT Appointment Interventional Radiology [facility] 1st [facility] [address] [phone] 04/19/2024 1:00 PM EDT Office Visit Pharmacy, [address] [place] [address] [place] [address] 05/17/2024 10:30 AM EDT Imaging [facility] 2nd Floor Cardiology, [place] [address] [facility] [place] [address] Gw, Excess Time Radiology [address] [place] [address] 06/11/2024 9:00 AM EDT [facility] [address] [facility] [place] [address] eRn Pineda CRNP [address] [place] [address] 06/24/2024 8:20 AM EDT Office Visit Family [address] [place] [phone] Krystian Palomo MD [address] [place] [address] [place] [address] 07/03/2024 1:30 PM EDT Hospital Encounter ENDO [facility], Endoscopy Room [facility] [address] [place] [phone] Jayla Armstrong MD [address] [place] [address] 07/03/2024 1:30 PM EDT - 07/03/2024 2:00 PM EDT Surgery ENDO [facility], Endoscopy Room [facility] [address] [place] [phone] Jayla Armstrong MD [address] [facility] [place] [phone] ESOPHAGOGASTRODUODENOSCOPY (EGD), FLEXIBLE, TRANSORAL, DIAGNOSTIC Scheduled Procedures [...] this encounter Medical Devices Implanted Type Area Flat Lock Machine Operator Device Identifier Shelf Expiration Date Model / Serial / Lot Lipiodol Injection - [id number] Implanted:Qty: 1 on 08/02/2023 at [facility] [employer] 04/28/2026 [id number] Syr Pf 2ml Embospheres 100-300 - [id number] Implanted:Qty: 1 on 08/02/2023 at [facility] [employer] [id number] 02/26/2026 [id number] / / [id number] documented as of this encounter Procedures Procedure Name Priority Date/Time Associated Diagnosis Comments RADIOLOGY SCANNED RESULT 04/02/2024 documented in this encounter Results * RADIOLOGY SCANNED RESULT (04/02/2024) 04/02/2024 Ren [facility] documented in this encounter Care Teams Induction Heating Equipment Setter Relationship Specialty Start Date End Date Krystian Palomo MD [address] [place] [address] [place] [phone] PCP - General Family Medicine 12/22/23 documented as of this encounter
--- OUTSIDE RECORDS SUMMARY | 2024-05-26 17:26 | External Medical Summary | Summary of Care ---
Author Name Unknown Organization [facility] Address [address] [place] [address] Phone [phone] Care Team Providers Care Associate Programmer Analyst Name Role Phone Krystian Palomo MD Primary Care Provide r Reason for Referral * Precert (Within 10 days (routine)) - Pending Review Specialty Diagnoses / Procedures Referred By Contac t Referred To Contact Radiology Diagnoses Hepatocellular carcinoma (HCC) Procedures IR CANCER CHEMO EMBOLIZATION (TACE) Amrit Magaña MD [address] [place] [address] Referral ID Status Reason Start Date Expiration Date V isits Requested Visits Authorized [id number] Pending Review 04/04/2024 999 999 Reason for Visit * Reason Comments Liver Disease Encounter Details Date Type Department Care Team (Latest Contact Info) Description 03/21/2024 3:30 PM EDT Telemedicine [facility] [address], [place] [phone] Amrit Magaña MD [address], [place] [id number] Hepatocellular carcinoma (HCC)* Allergies Active Allergy Reactions Criticality Noted Date Comments Aspirin 01/28/2022 Other reaction(s): bloody nose Salicylates 08/08/2001 nose bleeds documented as of this encounter (statuses as of 03/21/2024) Medications Medication Sig Dispensed Refills Start Date [...] 180 Tablet 1 03/04/2024 Active Dexcom G7 Aged Or Disabled Care Worker Device Use as directed to monitor blood sugars 1 Each 03/06/2024 Active Dexcom G7 Sensor Use as directed to monitor blood sugars. Change every 10 days. 3 Each 3 03/06/2024 Active documented as of this encounter (statuses as of 03/21/2024) Active Problems Problem Noted Date Diagnosed Date [...] as of this encounter (statuses as of 03/21/2024) Resolved Problems Problem Noted Date Diagnosed Date [...] as of this encounter (statuses as of 03/21/2024) Immunizations Name Administration Dates Next Due COVID-19 [...] as of this encounter Progress Notes * Amrit Magaña MD - 03/21/2024 3:33 PM EDT After connecting to the patient via telephone, the patient was identified by name and date of . Patient was then informed that this was a telephone call only visit. The patient agreed to participate. Visit Disposition: Routine follow-up Total call duration was 10 minutes. Subjective: Lloyd Spencer is a 58 year old male seen today for a follow up for bland embolization right segment7 liver tumor. Chief Complaint: Right lobe liver tumors. HPI: Lloyd Spencer is a 57 year old male with history of GONZALES cirrhosis and 2 liver masses seen on screening US. Subsequent MRI demonstrated 2 LIRADS 5 observations in the right lobe. Had 2 episodes of hepatic encephalopathy. Currently on lactulose. No prior history of paracentesis. No history of heavy alcohol use and last alcoholic drink was 10 years ago. No history of hepatitis. We discussed recent most MRI. Usual state of health. Patient Active Problem List Diagnosis Family history of colon cancer Type 2 diabetes mellitus with hemoglobin A1c goal of less than 7.0% (HCC) Diverticulosis of colon Hyperlipidemia with target LDL less than 100 Primary hypertension Chronic idiopathic gout involving toe without tophus BMI 36.0-36.9,adult Thrombocytopenia (HCC) Aortic stenosis, moderate Hepatic encephalopathy (HCC) 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) BPH without obstruction/lower urinary tract symptoms Current Outpatient Medications Medication Sig Dispense Refill Multivitamin Adult Oral Tablet daily . Vitamin C 1000 MG Oral Tablet daily . metFORMIN HCl 500 MG Oral Tablet (Glucophage) TAKE ONE TABLET BY MOUTH TWICE DAILY WITH MORNING ANDEVENING MEALS 180 Tablet 3 Lactulose 10 GM/15ML Oral Solution (Constulose) TAKE 45ML THREE TIMES DAILY,IN THE MORNING, AT NOON, AND BEDFORE BEDTIME 4050 mL 5 Glimepiride 1 MG Oral Tablet (Amaryl) TAKE ONE TABLET BY MOUTH EVERY DAY WITH THE FIRST MAIN MEAL OF THE DAY FOR DIABETES 90 Tablet 1 Atorvastatin Calcium 20 MG [...] 3 times a day. At hospital discharge Tamsulosin HCl 0.4 MG Oral Capsule (Flomax) One daily 30 Capsule 5 Lisinopril 5 MG Oral Tablet (Prinivil) Take 1 Tablet by mouth in the morning. In the morning.. Albumin Human 25 % Intravenous Solution Give 50Gms after paracentesis (if more than 5L are removed). May run at 100/hr. 100 mL 0 Furosemide 40 MG Oral Tablet (Lasix) Take 1 Tablet by mouth in the morning. 30 Tablet 3 rifAXIMin 550 MG Oral Tablet (Xifaxan) TAKE ONE TABLET BY MOUTH EVERY MORNING AND ONE TABLET AT BEDTIME 60 Tablet 12 Allopurinol 300 MG Oral Tablet (Zyloprim) TAKE ONE TABLET BY MOUTH IN THE MORNING 90 Tablet 1 Spironolactone 100 MG Oral Tablet (Aldactone) Take 1 Tablet by mouth in the morning. 30 Tablet 5 Albuminex 25 % Intravenous Solution (Albumin Human-kjda) [...] Give 3 units albumin 100 mL 10 Carvedilol 3.125 MG Oral Tablet (Coreg) Take 2 Tablets by mouth in the morning and 2 Tablets beforebedtime. With food.. 180 Tablet 1 Dexcom G7 Aged Or Disabled Care Worker Device Use as directed to monitor blood sugars 1 Each 0 Dexcom G7 Sensor Use as directed to monitor blood sugars. Change every 10 days. 3 Each 3 No current facility-administered medications for this visit. 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 Blood type A+ 09/21/2023 BMI 35.0-35.9,adult Cancer, hepatocellular (HCC) Diverticulitis of colon Diverticulosis of colon DM type 2, goal A1c below 7 02/26/2010 HGBA1C 7.5 Family history of colon cancer Mother, Neema Emigh Fracture of rib of right side 12/21/2013 cortical fx anterior right 9th rib Gout 08/08/2001 uric acid 9.0 Hepatic encephalopathy (HCC) 03/28/2022 admitted [facility], ammonia 110 Hyperlipidemia LDL goal < 100 Infection due to human metapneumovirus (hMPV) 01/27/2020 COVID neg Ingrown toenail of both feet 04/04/2022 both big toenails trimmed for ingrown nails [place] 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) Liver [...] (HCC) 05/21/2020 84,000 Thrombosed external hemorrhoid 01/18/2013 [facility] ER Urinary retention 08/27/2023 maybe from constipation? [facility] Past Surgical History: Procedure Laterality Date ABD/PELVIS CT W/O IV AND W/O PO CONTRAST 03/30/2010 diverticulitis, [facility] CHG CT HEAD/BRAIN W/O CONTRAST MATERIAL 02/27/2024 no acute changes to explain encephalopathy COLONOSCOPY, DIAGNOSTIC (RECTUM) 06/07/2019 normal, repeat 5 yrs/[facility] COLORECTAL CANCER SCREEN; COLON 05/22/2010 wnl , [...] performed by Gerardo Workman MD at ENDOSCOPY [facility] EGD, FLEXIBLE, DIAGNOSTIC 07/04/2023 Portal hypertensive gastropathy., esophagus and duodenuum normal (EGD), FLEXIBLE, TRANSORAL, DIAGNOSTIC performed by Juli Krause DO at ENDOSCOPY [facility] FOBT (EIA) 08/27/2023 negative IR CANCER CHEMO EMBOLIZATION (TACE) 08/02/2023 MRI ABDOMEN W CONTRAST 06/09/2023 2 spots in liver suggestive of hepatocellular carcinoma, varices, GB thickened, splenomegaly. cirrhotic liver STRESS ECHO (EXERCISE) 11/30/2006 normal, EF 60% US ABDOMEN LIMITED 02/27/2024 small amount of ascites, <500 cc Review of patient's allergies indicates: Allergen Reactions Aspirin Other reaction(s): bloody nose Salicylates nose bleeds Family History Adopted: Yes Problem Relation Name [...] back Other (sepsis) Brother kira Hypertension Brother Leoncio Heart attack Brother Leoncio Diabetes Brother Leoncio Hyperlipidemia Brother Leoncio No Known Problems Brother Mathew Family Status Relation Status Mo Alive Fa Sis Bro Alive Bro Bro Alive Bro Alive Social History Socioeconomic History Marital status: Single Spouse name: Not on file Number of children: 0 Years of education: Not on file Highest education level: Not on file Occupational History 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 PHYSICAL EXAM: General: alert and no distress MRI 02/16/2024 Motion limited study. 1. Treatment cavity measuring [...] the abdomen is recommended in 1 year. ASSESSMENT: New segment 5 liver lesion and possible recurrent segment 7 lesion PLAN: Schedule for procedure: [place] embolization of segment 5 tumor and segment 7 tumor. Follow up in 4 week(s). I spent 10 of 30 minutes during today's encounter counseling and coordinating the care of Lloyd Marge Spencer ([id number]), regarding liver tumor. Amrit Magaña MD 03/21/2024 documented in this encounter Plan of Treatment Upcoming Encounters Date Type Department Care Team (Latest Contact Info) Description 03/29/2024 1:00 PM EDT Office Visit Pharmacy, [address] [place] [address] [place] [address] 05/17/2024 10:30 AM EDT [facility] [address] [facility] [place] [address] Gw, Excess Time Radiology [address] [facility] [place] [address] 06/11/2024 9:00 AM EDT Office Visit Gastroenterology , [facility] [address] [facility] [place] [address] Ren Pineda CRNP [address] [facility] [place] [address] 06/24/2024 8:20 AM EDT Office Visit Family Medicine [address] [place] [phone] Krystian Palomo MD [address] [place] [address] [place] [address] 07/03/2024 1:30 PM EDT Hospital Encounter ENDO [facility], Endoscopy Room [facility] [address] [place] [phone] Jayla Armstrong MD [address] [place] [address] 07/03/2024 1:30 PM EDT - 07/03/2024 2:00 PM EDT Surgery ENDO [facility], Endoscopy Room [facility] [address] [place] [phone] Jayla Armstrong MD [address] [place] [address] ESOPHAGOGASTRODUODENOSCOPY (EGD), FLEXIBLE, TRANSORAL, DIAGNOSTIC Scheduled Orders Name Type Priority Associated Diagnoses Orde r Schedule IR CANCER CHEMO EMBOLIZATION (TACE) Medical Imaging Routine Hepatocellular carcinoma (HCC) Expected: 04/04/2024, Expires: 04/21/2025 Scheduled Procedures Name Priority Associated Diagnoses Date/Ti [...] this encounter Medical Devices Implanted Type Area Substation Operator Automatic Device Identifier Shelf Expiration Date Model / Serial / Lot Lipiodol Injection - [id number] Implanted:Qty: 1 on 08/02/2023 at [facility] [employer] 04/28/2026 [id number] Syr Pf 2ml Embospheres 100-300 - [id number] Implanted:Qty: 1 on 08/02/2023 at [facility] [employer] [id number] 02/26/2026 [facility] / / [id number] documented as of this encounter Visit Diagnoses Diagnosis Hepatocellular carcinoma (HCC)- Primary Malignant neoplasm of liver, primary Rios's esophagus documented in this encounter Care Teams Associate Programmer Analyst Relationship Specialty Start Date End Date Krystian Palomo MD [address] [place] [address] [place] [address] PCP - General Family Medicine 12/22/23 documented as of this encounter
--- OUTSIDE RECORDS SUMMARY | 2024-05-26 17:26 | External Medical Summary | Summary of Care ---
Author Name Unknown Organization [facility] Address [address] [facility] [place] [address] Phone [phone] Care Team Providers Care Tray Room Worker Name Role Phone Krystian Palomo MD Primary Care Provide r Reason for Visit * Reason Comments Dosage Adjustment In Person (Anticoag Cl inic) Diabetes Follow-Up Encounter Details Date Type Department Care Team (Late st Contact Info) Description 03/29/2024 1:00 PM EDT Office Visit Pharmacy, [address] [place] [address] [place] [address] Type 2 diabetes mellitus with hemoglobin A1c goal of less than 7.0% (HCC)* Allergies Active Allergy Reactions Criticality Noted Date Comments Aspirin 01/28/2022 Other reaction(s): bloody nose Salicylates 08/08/2001 nose bleeds documented as of this encounter (statuses as of 03/29/2024) Medications Medication Sig Dispensed Refills Start Date [...] 180 Tablet 1 03/04/2024 Active Dexcom G7 Flower Cheniller Device Use as directed to monitor blood sugars 1 Each 03/06/2024 Active Dexcom G7 Sensor Use as directed to monitor blood sugars. Change every 10 days. 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 07/05/2023 Hepatic encephalopathy 03/28/2022 Overview: admitted [facility], ammonia 110 Aortic stenosis, [...] as of this encounter (statuses as of 03/29/2024) Resolved Problems Problem Noted Date Diagnosed Date [...] as of this encounter (statuses as of 03/29/2024) Immunizations Name Administration Dates Next Due COVID-19 [...] this encounter Progress Notes * Crystal Lang, [facility] - 03/29/2024 12:52 PM EDT Medication Therapy [facility] - Diabetes Management Progress Note Lloyd Spencer, identified by name and date of , is a 58 year old male being seen for diabetes management/education. Dexcom G7: Patient Education and Review Patient provided G7 CGM components and training manual. Reviewed the following information with patient using provided press hand supervisor literature: Introduced CGM and components How to set up display device (cell phone with Dexcom [id number]) Follow the onscreen instructions on pharmacogeneticist or appt to enter: Low and high alerts Sensor code Insert sensor Choose sensor site Insert sensor with applicator Pair sensor Wait for sensor to pair Tap start sensor No readings during the 30 minute warmup Keep display device within 20 feet during warmup Home screen overview Review home screen overview in using your G7 with patient Home screen shows Sensor glucose readings Trend arrow Trend graph High and low alerts Treatment decisions Review treatment decisions in using your G7 with patient Use your meter if: Your G7 readings don't match your symptoms Your G7 doesn't show both a number and an arrow Ending Sensor Session Review ending your sensor session in using your G7 with patient Remove sensor from body Patient set up personal device and self-inserted sensor and transmitter in office independently of pharmacist involvement other than for material review and support. Additionally, further discussed Ozempic. Hesitancy due to struggling with constipation. Will defer at this time and further discuss upon BG review. Diabetic Medications: Metformin HCl 500mg BID Glimepiride 1mg daily eGFR 86 as of 02/08/24 FOLLOW UP: Return to clinic in 3 weeks 04/19/2024 Crystal Lang RP Clinical Pharmacist - Managed Care Analyst Medication Therapy Management Clinic 03/29/2024, 12:52 PM documented in this encounter Plan of Treatment Upcoming Encounters Date Type Department Care Team (Latest Contact Info) Description 04/11/2024 8:30 AM EDT Appointment Interventional Radiology [facility] 1st Floor [address] [facility] [address] 04/19/2024 1:00 PM EDT Office Visit Pharmacy, [address] [place] [address] [place] [address] 05/17/2024 10:30 AM EDT Imaging [facility] 2nd Floor Cardiology, [place] [address] [place] [address] Gw, Excess Time Radiology [address] [place] [address] 06/11/2024 9:00 AM EDT Office Visit Gastroenterolog y, [facility] [address] [place] [address] Ren Pineda CRNP [address] [place] [address] 06/24/2024 8:20 AM EDT Office Visit Family [address] [place] [phone] Krystian Palomo MD [address] [place] [address] [place] [address] 07/03/2024 1:30 PM EDT Hospital Encounter ENDO [facility], Endoscopy Room [facility] [address] [place] [phone] Jayla Armstrong MD [address] [place] [address] 07/03/2024 1:30 PM EDT - 07/03/2024 2:00 PM EDT Surgery ENDO [facility], Endoscopy Room [facility] [address] [place] [phone] Jayla Armstrong MD [address] [place] [phone] ESOPHAGOGASTRODUODENOSCOPY (EGD), FLEXIBLE, TRANSORAL, DIAGNOSTIC Scheduled Procedures [...] this encounter Medical Devices Implanted Type Area Warper Tender Device Identifier Shelf Expiration Date Model / Serial / Lot Lipiodol Injection - [id number] Implanted:Qty[facility]/28/2026 [id number] Syr Pf 2ml Embospheres 100-300 - [id number] Implanted:Qty: 1 on 08/02/2023 at [facility] [employer] [id number] 02/26/2026 [id number] / / [id number] documented as of this encounter Visit Diagnoses Diagnosis Type 2 diabetes mellitus with hemoglobin A1c goal of less than 7.0% ([facility])- Primary Rios's esophagus documented in this encounter Care Teams Tray Room Worker Relationship Specialty Start Date End Date Krystian Palomo MD [address] [place] [address] [place] [address] PCP - General Family Medicine 12/22/23 documented as of this encounter
[2024-05-26 17:43] LABS: Basophils % (auto) 2.2 %; Eosinophils # (auto) 0.17 K/uL (0.00-0.50); Eosinophils % (auto) 3.7 %; Hemoglobin 11.1 g/dl (14.0-18.0); Immature Granulocytes # (auto) 0.03 K/uL (0.01-0.20); Immature Granulocytes % (auto) 0.6 %; Lymphocytes % (auto) 15.2 %; Mean Corpuscular Hemoglobin 36.4 pg (25.0-34.0); Mean Corpuscular Hgb Conc 34.7 g/dL (32.0-36.0); Mean Corpuscular Volume 104.9 fL (80.0-100.0); Mean Platelet Volume 10.9 fL (9.4-12.4); Monocytes # (auto) 0.78 K/uL (0.11-0.59); Monocytes % (auto) 16.9 %; Neutrophils # (auto) 2.84 K/uL (1.40-6.50); Neutrophils % (auto) 61.4 %; Platelet Count 74 K/uL (130-400); RDW Coefficient of Variation 16.3 % (11.5-14.5); RDW Standard Deviation 62.4 fL (36.4-46.3); Red Blood Count 3.05 M/uL (4.70-6.10); White Blood Count 4.62 K/ul (4.8-10.8)
[2024-05-26 17:44] LABS: iSTAT Creatinine 0.9 mg/dl (0.6-1.3); iSTAT Hemoglobin 10.5 g/dl (14.0-18.0); iSTAT Ionized Calcium 1.18 mmol/l (1.12-1.32); iSTAT Potassium 4.4 mmol/L (3.3-5.0)
[2024-05-26 18:02] LABS: Albumin Globulin Ratio 0.6 (0.9-2); Albumin Level 2.3 gm/dl (3.4-5.0); BUN Creatinine Ratio 18.1 (10-20); Bilirubin,Total 4.2 mg/dl (0.2-1.0); Calcium 8.1 mg/dl (8.6-10.3); Creatinine Clr Calc Pharmacy 107.2 ml/min; Est GFR (African American) 102.4 ml/min; Est GFR (Non-African American) 88.4 ml/min; Globulin 4.1 gm/dl (2.5-4.0); Magnesium 1.7 mg/dl (1.7-2.4); Potassium 4.4 mmol/L (3.5-5.1); Total Protein 6.4 gm/dl (6.0-8.3)
[2024-05-26 18:08] LABS: Troponin I High Sensitivity 7.3 pg/ml (0-20)
[2024-05-26 18:10] LABS: INR 1.4 (0.9-1.1); Prothrombin Time 14.7 Seconds (9.0-12.0)
--- NOTE | 2024-05-26 18:11 | Emergency Department Note ---
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 Patient is a poor historian but admits he is not taking his lactulose. There is no reported fevers, cough or congestion. Patient denies any headache. On evaluation the patient is fatigued appearing but no acute distress, afebrile with stable vital signs. He is alert and oriented to self and place but confused to situation. He is moving all extremities equally without focal weakness. He does exhibit moderate asterixis of bilateral upper extremities. EKG without overt acute ischemia. CXR negative for acute cardiopulmonary process per my personal preliminary review/interpretation. Similar to prior. INR is 1.4, also at patient's baseline in setting of cirrhosis. Total bilirubin 4.2 and AST 50, similar to prior values in the setting of cirrhosis. Ammonia is elevated at 137 consistent with the patient's encephalopathic presentation. High-sensitivity troponin 7.3, within normal limits. Lipase is normal. TSH within normal limits. CT of the head was performed and was negative for acute abnormalities. Patient was administered oral lactulose for his hyperammonemia and likely cause of the patient's encephalopathy. Patient is in agreement with plan for admission for further management. Case was discussed with Dr. Dun[facility] who will evaluate the patient for admission. Triage Nursing notes reviewed and agree them. Prior/external medical records reviewed Vital Signs: reviewed Differential diagnosis: Infection, hypoglycemia, electrolyte abnormalities, overdose, toxicologic, cardiac sources, intracerebral event, neurologic, trauma, as well as other pathologies. ER treatment provided: See below. Diagnostics interpreted by me: ECG: Normal sinus rhythm, 66 bpm, no ectopy, no overt ST elevation or depression, QTc 469, QRS 92. Cardiac Monitoring: An order for continuous cardiac monitoring was placed and demonstrated Normal sinus rhythm, 66 bpm, no ectopy Laboratory studies: See below Imaging studies: See below Consultation(s): Dr. Dunbar [facility] hospitalist HPI: The patient is a 58-year-old gentleman with a past medical history of liver cirrhosis secondary to Wells, hepatocellular carcinoma, history of hepatic encephalopathy/hyperammonemia, medical noncompliance who presents to the emergency department via EMS for evaluation of worsening confusion which was noted by family in the setting of they report that the patient has not been taking his lactulose. Patient is a poor historian but admits he is not taking his lactulose. There is no reported fevers, cough or congestion. Patient denies any headache. ROS: See above HPI for pertinent positives & negatives. A total of 10 systems reviewed and were otherwise negative. VITALS:See Below PHYSICAL EXAMINATION: GENERAL: Awake, alert, fatigued-appearing, in no distress HENT: Normocephalic, atraumatic. Oropharynx unremarkable. EYES: Normal conjunctiva. Sclera non-icteric. EOMI. No nystamgus. PEARRL. NECK: Supple. No nuchal rigidity. FROM. No JVD. RESPIRATORY: Clear to auscultation. CARDIAC: Regular rate, normal rhythm. Extremities warm and well perfused. Pulses equal. ABDOMEN: Soft, non-distended. No tenderness to palpation. No rebound or guarding. No masses. MUSCULOSKELETAL: Chest examination reveals no tenderness. The back is symmetrical on inspection without obvious abnormality. There is no CVA tenderness to palpation. No joint edema. LOWER EXTREMITIES: Calves are equal size bilaterally and non-tender. No edema. No discoloration. NEURO: Poor attention. Moderate BUE asterixis. 5/5 strength and SILT x 4 extremities. SKIN: No rash or jaundice noted. Ken Lyons MD Past Med/Surg History Problem List Medical non-compliance (Acute) Hyperammonemia (Acute) Acute hyperglycemia (Acute) Acute hyponatremia (Acute) Ascites (Acute) Urinary retention Cirrhosis (Acute) UTI (urinary tract infection) Sepsis Abdominal pain (Acute) Morbid obesity Hepatic encephalopathy Acute hepatic encephalopathy (Acute) Acute alteration in mental status (Acute) Pancytopenia (Acute) Encounter for screening colonoscopy Encounter for pre-operative examination Mid back pain Fall due to slipping on ice or snow Right rib fracture Ascites (Acute) Hepatocellular carcinoma possibly carcinogenic - pt unsure if it has been confirmed. 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 "if i get up to fast". S/P abdominal paracentesis Fracture of rib of right side 2013 Anaplasmosis 2019 Acute hepatic encephalopathy Cardiac murmur HX Hypertension hx - no current medications, patient reports having hypotension, no problems since stopping his blood pressure medications Right rib fracture hx ~. Surgical History History of esophagogastroduodenoscopy (EGD) History of colonoscopy Family History Mother History of colonoscopy Brother Family history of diabetes mellitus Brother Family history of diabetes mellitus Grandmother (Paternal) Family history of diabetes mellitus Other No family history of adverse response to anesthesia Social History Smoking Status: Never smoker Tobacco Type: Smokeless Tobacco (Dip or Chew) Second Hand Exposure: No; Do You Dip or Chew Tobacco: Yes; Hx Alcohol Use: No Hx Substance Use: No Preferred Language: Azeri Communication Ability: Effective Cupola Liner Required: No Beliefs That Will Affect Care: None marital status: Single Current Living Situation: Family Current Living Situation Comment: mom and daughter live with him Feels Safe at Home: Yes Assistive Devices: Cane Allergies Allergies Allergy/AdvReac Type Severity Reaction Status Date / Time aspirin Allergy Intermediate NOSE Verified 01/11/24 08:15 BLEEDS--IF TAKES REGULARLY Home Meds Home Medications Medication Instructions Recorded Confirmed allopurinol 300 mg tablet 300 mg PO QAM 06/03/19 02/27/24 metformin 500 mg tablet 0 mg PO BIDM 06/03/19 02/27/24 multivitamin 1 tab PO QAM 06/03/19 02/27/24 atorvastatin 20 mg tablet 0 mg PO QAM 04/21/21 02/27/24 ascorbic acid (vitamin C) 1,000 mg 1 g PO QAM 08/27/23 02/27/24 tablet (Vitamin C) tamsulosin 0.4 mg capsule 0.4 mg PO DAILY 10/04/23 02/27/24 rifaximin 550 mg tablet (Xifaxan) 550 mg PO BID 01/02/24 02/27/24 carvedilol 6.25 mg tablet 6.25 mg PO BID 02/27/24 02/27/24 furosemide 20 mg tablet 40 mg PO QAM 02/27/24 02/27/24 omeprazole 20 mg capsule,delayed 20 mg PO QAM 02/27/24 02/27/24 release spironolactone 25 mg tablet 100 mg PO QAM 02/27/24 02/27/24 Lantus Solostar U-100 Insulin 10 unit subcut DAILY 05/26/24 Previous Rx's Medication Instructions Recorded mupirocin 2 % topical ointment 1 applic EXT TID #20 grams 08/29/23 lactulose 20 gram/30 mL oral 45 g (67.5 mL) PO TID Cirrhosis 30 02/29/24 solution days #3,000 mL Results & Data (ED) Vital Signs Vital Signs - 24 hr 05/26/24 17:27 05/26/24 17:29 05/26/24 17:53 Temperature 36.8 C Temperature Source Oral Pulse Rate 68 69 Pulse Rate [Apical] Pulse Rhythm [Apical] Pulse Strength [Apical] Respiratory Rate 18 Respiratory Effort / Characteristics Non-Labored Respiratory Depth Normal Respiratory Pattern Blood Pressure 117/68 Blood Pressure [Right Arm] Blood Pressure Mean 84 Blood Pressure Mean [Right Arm] Pulse Oximetry Oxygen Delivery Method Room Air Room Air Oxygen Flow Rate 98 Sepsis Recent Fever Within 48 Hours No Sepsis New/Unexplained Change in Mental Status No Sepsis Action Taken by Nursing No Action Required 05/26/24 17:55 05/26/24 18:42 05/26/24 20:00 Temperature Temperature Source Pulse Rate Pulse Rate [Apical] 65 62 Pulse Rhythm [Apical] Regular Pulse Strength [Apical] Respiratory Rate 14 18 Respiratory Effort / Characteristics Non-Labored Respiratory Depth Normal Respiratory Pattern Blood Pressure Blood Pressure [Right Arm] 120/64 136/84 Blood Pressure Mean Blood Pressure Mean [Right Arm] 82 101 Pulse Oximetry 94 100 Oxygen Delivery Method Room Air Room Air Room Air Oxygen Flow Rate Sepsis Recent Fever Within 48 Hours Sepsis New/Unexplained Change in Mental Status Sepsis Action Taken by Nursing 05/26/24 21:24 05/26/24 21:36 05/26/24 22:47 Temperature Temperature Source Pulse Rate 64 Pulse Rate [Apical] 65 62 Pulse Rhythm [Apical] Regular Pulse Strength [Apical] Respiratory Rate 16 16 Respiratory Effort / Characteristics Non-Labored Respiratory Depth Respiratory Pattern Blood Pressure Blood Pressure [Right Arm] 117/80 114/79 Blood Pressure Mean Blood Pressure Mean [Right Arm] 92 90 Pulse Oximetry 98 97 Oxygen Delivery Method Room Air Oxygen Flow Rate Sepsis Recent Fever Within 48 Hours Sepsis New/Unexplained Change in Mental Status Sepsis Action Taken by Nursing 05/26/24 23:17 Temperature Temperature Source Pulse Rate Pulse Rate [Apical] 62 Pulse Rhythm [Apical] Regular Pulse Strength [Apical] Normal Respiratory Rate 13 Respiratory Effort / Characteristics Non-Labored Spontaneous Respiratory Depth Normal Respiratory Pattern Regular Blood Pressure Blood Pressure [Right Arm] 120/82 Blood Pressure Mean Blood Pressure Mean [Right Arm] 94 Pulse Oximetry 97 Oxygen Delivery Method Room Air Oxygen Flow Rate Sepsis Recent Fever Within 48 Hours Sepsis New/Unexplained Change in Mental Status Sepsis Action Taken by Nursing Laboratory Data Attestation: I reviewed the patient's lab results. 05/26/24 17:26 05/26/24 17:26 Lab Results 05/26/24 05/26/24 Range/Units 17:26 17:31 WBC 4.62 L (4.8-10.8) K/ul RBC 3.05 L (4.70-6.10) M/uL Hgb 11.1 L (14.0-18.0) g/dl POC Hgb 10.5 L (14.0-18.0) g/dl Hct 32.0 L (42.0-52.0) % POC Hct 31 L (42-52) % MCV 104.9 H (80.0-100.0) fL MCH 36.4 H (25.0-34.0) pg MCHC 34.7 (32.0-36.0) g/dL RDW Std Deviation 62.4 H (36.4-46.3) fL RDW Coeff of Polo 16.3 H (11.5-14.5) % Plt Count 74 L (130-400) K/uL MPV 10.9 (9.4-12.4) fL Immature Gran % (Auto) 0.6 % Neut % (Auto) 61.4 % Lymph % (Auto) 15.2 % [place] % (Auto) 16.9 % Eos % (Auto) 3.7 % Baso % (Auto) 2.2 % Neut # (Auto) 2.84 (1.40-6.50) K/uL Lymph # (Auto) 0.70 L (1.20-3.40) K/uL [place] # (Auto) 0.78 H (0.11-0.59) K/uL Eos # (Auto) 0.17 (0.00-0.50) K/uL Baso # (Auto) 0.10 (0.00-0.20) K/uL Immature Gran # (Auto) 0.03 (0.01-0.20) K/uL PT 14.7 H (9.0-12.0) Seconds INR 1.4 H (0.9-1.1) POC Sodium 137 (135-144) mmol/L Sodium 133 L (136-145) mmol/L POC Potassium 4.4 (3.3-5.0) mmol/L Potassium 4.4 (3.5-5.1) mmol/L POC Chloride 105 (101-112) mmol/L Chloride 107 (98-107) mmol/L Carbon Dioxide 22 (21-32) mmol/L POC Total CO2 19 L (24-31) mmol/L Anion Gap 4 (3-11) POC Anion Gap 19.0 (16-25) mmol/L POC BUN 16 (7-18) mg/dl BUN 17 (6-23) mg/dl Creatinine 0.94 (0.6-1.4) mg/dl POC Creatinine 0.9 (0.6-1.3) mg/dl Est Cr Clr Drug Dosing 107.2 ml/min Est GFR ( Amer) 102.4 ml/min Est GFR (Non-Af Amer) 88.4 ml/min BUN/Creatinine Ratio 18.1 (10-20) Glucose 143 H (70-99(Fasting)) mg/dl POC Glucose (other) 137 H (70-99) mg/dl Calcium 8.1 L (8.6-10.3) mg/dl POC Ioniz Calcium [place]ie 1.18 (1.12-1.32) mmol/l Phosphorus 2.0 L (2.5-4.9) mg/dl Magnesium 1.7 (1.7-2.4) mg/dl Total Bilirubin 4.2 H (0.2-1.0) mg/dl AST 50 H (13-39) U/L ALT 28 (7-52) U/L Alkaline Phosphatase 97 (34-104) U/L Ammonia 137.0 H (18-72) umol/L Troponin I High Sens 7.3 (0-20) pg/ml Total Protein 6.4 (6.0-8.3) gm/dl Albumin 2.3 L (3.4-5.0) gm/dl Globulin 4.1 H (2.5-4.0) gm/dl Albumin/Globulin Ratio 0.6 L (0.9-2) Lipase 51 (11-82) U/L TSH 1.891 (0.300-4.500) uIu/ml Administered Medications Sodium Chloride (Nss) 500 mls @ 100 mls/hr IV .Q5H MOODY Stop: 06/25/24 18:14 Last Admin: 05/26/24 23:32 Dose: 100 mls/hr Documented By: Infusion: 05/26/24 23:30 Dose: Infused Documented By: Infusion: 05/26/24 21:44 Dose: 100 mls/hr Documented By: Admin: 05/26/24 18:37 Dose: 125 mls/hr Documented By: IMER Discontinued Medications Carvedilol (Carvedilol 6.25 Mg Tab) 6.25 mg PO NOW STA Stop: 05/26/24 21:24 Last Admin: 05/26/24 21:50 Dose: 6.25 mg Documented By: IMER Lactulose (Lactulose Syrup 30 Gm/45 Ml Udp) 30 gm PO NOW STA Stop: 05/26/24 18:11 Last Admin: 05/26/24 18:35 Dose: 30 gm Documented By: IMER Lactulose (Lactulose Syrup 30 Gm/45 Ml Udp) 30 gm PO QID MOODY Stop: 06/25/24 20:59 Last Admin: 05/26/24 21:56 Dose: Not Given Documented By: IMER Lactulose (Lactulose Syrup 30 Gm/45 Ml Udp) 45 gm PO NOW STA Stop: 05/26/24 21:24 Last Admin: 05/26/24 21:50 Dose: 45 gm Documented By: IMER Imaging Data Radiologist's Impression: Chest X-Ray 05/26/24 17:23 XR chest 1V portable HISTORY: 58 years-old Male ams acutely altered mental status COMPARISON: 02/27/2024 TECHNIQUE: AP view of the chest FINDINGS: Cardiac silhouette is enlarged. Electronic device projects over the left chest. No pneumothorax or large pleural effusion. Bones appear intact. Mild bibasilar atelectasis. IMPRESSION: Cardiomegaly without acute process. ACT 112: Negative or not required by law. The above report was generated using voice recognition software. It may contain grammatical, syntax or spelling errors. Electronically signed by: Alfredo Thornton M.D. 05/26/2024 6:[address] 05/26/24 18:10 CT head/brain wo con CLINICAL HISTORY: 58 years-old Male with ams. Acutely altered mental status TECHNIQUE: Multiple axial CT images of the head were obtained without contrast. A dose lowering technique was utilized adhering to the principles of ALARA. CT DOSE: 625.8 mGy.cm COMPARISON: 02/27/2024 FINDINGS: No acute intracranial hemorrhage, midline shift, intracranial mass, hydrocephalus, territorial ischemia or abnormal extra-axial collection. The calvarium is intact. The paranasal sinuses, mastoid air cells, and middle ear cavities are clear. IMPRESSION: No acute intracranial abnormality. ACT 112: Negative or not required by law. The above report was generated using voice recognition software. It may contain grammatical, syntax or spelling errors. Electronically signed by: Alfredo Thornton M.D. 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 Original dose 500 mg allopurinol 300 mg Tablet 300 mg PO QAM multivitamin Tablet 1 tab PO QAM Rx Instructions: otc unable to verify atorvastatin 20 mg tablet 0 mg PO QAM Rx Instructions: Last filled in September 2023. Original dose 20 mg ascorbic acid (vitamin C) [Vitamin C] 1,000 mg Tablet 1 g PO QAM Rx Instructions: otc unable to verify mupirocin 2 % Ointment 1 applic EXT TID Qty: 20 0RF Rx Instructions: last filled jul 2023 tamsulosin 0.4 mg capsule 0.4 mg PO DAILY Xifaxan 550 mg tablet 550 mg PO BID Lantus Solostar U-100 Insulin 10 unit subcut DAILY carvedilol 6.25 mg tablet 6.25 mg PO BID omeprazole 20 mg capsule,delayed release(DR/EC) 20 mg PO QAM spironolactone 25 mg tablet 100 mg PO QAM furosemide 20 mg tablet 40 mg PO QAM lactulose 20 gram/30 mL solution 45 g PO TID 30 Days Qty: 3000 1RF Rx Instructions: last filled in May 2023 Adjust dose up or down to maintain 3-4 loose BMs per day Referrals Referrals: Krystian Palomo MD [Primary Care Provider] -
--- NOTE | 2024-05-26 18:17 | XRay Report ---
XR chest 1V portable HISTORY: 58 years-old Male ams acutely altered mental status COMPARISON: 02/27/2024 TECHNIQUE: AP view of the chest FINDINGS: Cardiac silhouette is enlarged. Electronic device projects over the left chest. No pneumothorax or la rge pleural effusion. Bones appear intact. Mild bibasilar atelectasis. IMPRESSION: Cardiomegaly without acute process. ACT 112: Negative or not required by law. The above report was generated using voice recognition software. It may contain grammatical, syntax o r spelling errors. Electronically signed by: Alfredo Thornton M.D. 05/26/2024 6:16 PM
[2024-05-26 18:18] LABS: Thyroid Stimulating Hormone 1.891 uIu/ml (0.300-4.500)
--- NOTE | 2024-05-26 18:34 | CT Scan Report ---
CT head/brain wo con CLINICAL HISTORY: 58 years-old Male with ams. Acutely altered mental status TECHNIQUE: Multiple axial CT images of the head were obtained without contrast. A dose lowering tech nique was utilized adhering to the principles of ALARA. CT DOSE: 625.8 mGy.cm COMPARISON: 02/27/2024 FINDINGS: No acute intracranial hemorrhage, midline shift, intracranial mass, hydrocephalus, territorial ischem ia or abnormal extra-axial collection. The calvarium is intact. The paranasal sinuses, mastoid air cells, and middle ear cavities are clear . IMPRESSION: No acute intracranial abnormality. ACT 112: Negative or not required by law. The above report was generated using voice recognition software. It may contain grammatical, syntax o r spelling errors. Electronically signed by: Alfredo Thornton M.D. 05/26/2024 6:32 PM
[2024-05-26] MEDS: LACTULOSE SYRUP 30 GM/45 ML UDP PO STA ×2 (18:35→21:50)
[2024-05-26] MEDS: SODIUM CHLORIDE 0.9% 500 ML IV SCH (18:37)
--- NOTE | 2024-05-26 20:18 | History & Physical Report ---
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 Acute hepatic encephalopathy due to medication non compliance- Ammonia elevated 137. Asterixis +. AAOx2. Confused. Will start on lactulose 45 g qid along with rifaximin to titrate to 3-4 loose BM daily. If he gets lethargic and unable to take po, will need to consider lactulose enema. No other causative etiology could be identified. Abd benign with no tenderness, no fever or leucocytosis, low concern for SBP. Electrolytes stable. Will hold home diuretics for now and continue gentle hydration. Resume diuretics in am if encephalopathy cleared. If not improved, consider GI evaluation. WELLS cirrhosis, hepatocellular carcinoma s/p embolization on 08/02/23- Follow up with GI. Plan as above Pancytopenia due to cirrhosis- chronic at baseline Hyponatremia- mild due to cirrhosis, recheck in am Hypophosphatemia- mild, recheck in am DM-2- recently started on lantus 10 U q am with metformin 500 bid. Glimiperide and actos discontinued. Will continue lantus, SSI, hold metformin. HTN- on coreg, will continue DVT ppx- SCD. Chemoppx C/I with thrombocytopenia Dispo- Medsurg Updated brother Cory over the phone He opts to be full code Time spent- approx 78 mins History of Present Illness Chief Complaint: AMS Primary Care Provider: Krystian Palomo MD 58-year-old male with history of Wells cirrhosis, hepatocellular carcinoma status post TACE with refractory ascites, recurrent hepatic encephalopathy, diabetes type 2, hyperlipidemia, hypertension, gout, moderate , thrombocytopenia who presented to ED today with altered mental status.Patient was seen and examined bedside. he is awake alert oriented, answering simple questions appropriately, however not able to recall or answer everything, although he says he is feeling better. states he usually takes all his medication including lactulose and has multiple bowel movements daily but he states his last bowel movement was about 2 days ago. He denies any fever, chills, chest pain, shortness of breath, nausea, vomiting, diarrhea, dysuria, abdominal pain. He cannot recall the name of his medications. He does not smoke or drink alcohol. I spoke to his brother Cory over the phone and corroborated the history. Patient is confused and mixing things up. Verified the medications with the brother. States he might be non compliant with his lactulose. Allergies Allergy/AdvReac Type Severity Reaction Status Date / Time aspirin Allergy Intermediate NOSE Verified 01/11/24 08:15 BLEEDS--IF TAKES REGULARLY Home Medications Medication Instructions Recorded Confirmed Type allopurinol 300 mg tablet 300 mg PO QAM 06/03/19 02/27/24 History metformin 500 mg tablet 0 mg PO BIDM 06/03/19 02/27/24 History multivitamin 1 tab PO QAM 06/03/19 02/27/24 History atorvastatin 20 mg tablet 0 mg PO QAM 04/21/21 02/27/24 History ascorbic acid (vitamin C) 1,000 mg 1 g PO QAM 08/27/23 02/27/24 History tablet (Vitamin C) mupirocin 2 % topical ointment 1 applic EXT TID #20 grams 08/29/23 02/27/24 Rx tamsulosin 0.4 mg capsule 0.4 mg PO DAILY 10/04/23 02/27/24 History rifaximin 550 mg tablet (Xifaxan) 550 mg PO BID 01/02/24 02/27/24 History carvedilol 6.25 mg tablet 6.25 mg PO BID 02/27/24 02/27/24 History furosemide 20 mg tablet 40 mg PO QAM 02/27/24 02/27/24 History omeprazole 20 mg capsule,delayed 20 mg PO QAM 02/27/24 02/27/24 History release spironolactone 25 mg tablet 100 mg PO QAM 02/27/24 02/27/24 History lactulose 20 gram/30 mL oral 45 g (67.5 mL) PO TID Cirrhosis 30 02/29/24 Rx solution days #3,000 mL Lantus Solostar U-100 Insulin 10 unit subcut DAILY 05/26/24 History Past Med/Surg History Problem List Acute hyperglycemia (Acute) Acute hyponatremia (Acute) Ascites (Acute) Urinary retention Cirrhosis (Acute) UTI (urinary tract infection) Sepsis Abdominal pain (Acute) Morbid obesity Hepatic encephalopathy Acute hepatic encephalopathy (Acute) Acute alteration in mental status (Acute) Pancytopenia (Acute) Encounter for screening colonoscopy Encounter for pre-operative examination Mid back pain Fall due to slipping on ice or snow Right rib fracture Ascites (Acute) Hepatocellular carcinoma possibly carcinogenic - pt unsure if it has been confirmed. 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 "if i get up to fast". S/P abdominal paracentesis Fracture of rib of right side 2013 Anaplasmosis 2019 Acute hepatic encephalopathy Cardiac murmur HX Hypertension hx - no current medications, patient reports having hypotension, no problems since stopping his blood pressure medications Right rib fracture hx ~. 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 Beliefs That Will Affect Care: None marital status: Single Current Living Situation: Family Current Living Situation Comment: mom and daughter live with him Feels Safe at Home: Yes Assistive Devices: Cane Review of Systems Review of Systems: All systems reviewed & are unremarkable except as noted in Subjective Physical Exam Physical Exam: General: Lying comfortably in bed, not in distress, on room air HEENT: IVAN, MMM Chest: Clear breath sounds bilaterally, no wheezes or crackles CVS: Regular rate and rhythm, normal heart sounds, no murmur Abdomen: Soft, non tender, distended, normal bowel sounds Neuro: Awake, alert, oriented x2. Answering simple questions appropriately but confused at times. Asterixis + Extremities: No edema Results & Data Results & Data Vital Signs (Past 12 Hours) Vital Signs Temp Pulse Pulse Resp BP BP Pulse Ox 05/26/24 18:42 65 14 120/64 94 05/26/24 17:55 05/26/24 17:53 05/26/24 17:29 36.8 C 69 18 117/68 05/26/24 17:27 68 O2 Del Method O2 Flow Rate 05/26/24 18:42 Room Air 05/26/24 17:55 Room Air 05/26/24 17:53 Room Air 98 05/26/24 17:29 Room Air 05/26/24 17:27 Laboratory Results Short CBC 05/26/24 Range/Units 17:26 WBC 4.62 L (4.8-10.8) K/ul Hgb 11.1 L (14.0-18.0) g/dl Hct 32.0 L (42.0-52.0) % Plt Count 74 L (130-400) K/uL BMP 05/26/24 17:26 Sodium 133 L Potassium 4.4 Chloride 107 Carbon Dioxide 22 BUN 17 Creatinine 0.94 Glucose 143 H Calcium 8.1 L Liver Function 05/26/24 Range/Units 17:26 Total Bilirubin 4.2 H (0.2-1.0) mg/dl AST 50 H (13-39) U/L ALT 28 (7-52) U/L Alkaline Phosphatase 97 (34-104) U/L Albumin 2.3 L (3.4-5.0) gm/dl Diagnostic Findings Chest X-Ray 05/26/24 17:23 XR chest 1V portable HISTORY: 58 years-old Male ams acutely altered mental status COMPARISON: 02/27/2024 TECHNIQUE: AP view of the chest FINDINGS: Cardiac silhouette is enlarged. Electronic device projects over the left chest. No pneumothorax or large pleural effusion. Bones appear intact. Mild bibasilar atelectasis. IMPRESSION: Cardiomegaly without acute process. ACT 112: Negative or not required by law. The above report was generated using voice recognition software. It may contain grammatical, syntax or spelling errors. Electronically signed by: Alfredo Thornton M.D. 05/26/2024 6:[address] 05/26/24 18:10 CT head/brain wo con CLINICAL HISTORY: 58 years-old Male with ams. Acutely altered mental status TECHNIQUE: Multiple axial CT images of the head were obtained without contrast. A dose lowering technique was utilized adhering to the principles of ALARA. CT DOSE: 625.8 mGy.cm COMPARISON: 02/27/2024 FINDINGS: No acute intracranial hemorrhage, midline shift, intracranial mass, hydrocephalus, territorial ischemia or abnormal extra-axial collection. The calvarium is intact. The paranasal sinuses, mastoid air cells, and middle ear cavities are clear. IMPRESSION: No acute intracranial abnormality. ACT 112: Negative or not required by law. The above report was generated using voice recognition software. It may contain grammatical, syntax or spelling errors. Electronically signed by: Alfredo Thornton M.D. 05/26/2024 6:32 PM
[2024-05-26] MEDS ORDERED: POLYETHYLENE (MIRALAX) 17 GM PACK PO PRN (20:45)
[2024-05-26] MEDS ORDERED: ONDANSETRON INJ 2 MG/ML 2 ML VIAL IV PRN (20:45)
[2024-05-26] MEDS ORDERED: DEXTROSE 50% 50 ML SYRINGE IV PRN (21:43)
[2024-05-26] MEDS ORDERED: GLUCAGON FOR INJ 1 MG VIAL SQ PRN (21:43)
[2024-05-26] MEDS ORDERED: GLUCOSE 40% GEL 15 GM TUBE PO PRN (21:43)
[2024-05-26] MEDS ORDERED: CARBOHYDRATES FOR HYPOGLYCEMIA PO PRN (21:43)
[2024-05-26] MEDS ORDERED: GLUCOSE 10 TAB/TUBE PO PRN (21:43)
[2024-05-26] MEDS: carvediloL 6.25 MG TAB PO STA (21:50)
[2024-05-26] MEDS: LACTULOSE SYRUP 30 GM/45 ML UDP PO SCH (21:56)
[2024-05-27] MEDS: rifAXIMin 550 MG TABLET PO SCH (01:13)
[2024-05-27 06:09] LABS: Albumin Globulin Ratio 0.6 (0.9-2); Albumin Level 2.2 gm/dl (3.4-5.0); BUN Creatinine Ratio 19.2 (10-20); Bilirubin,Total 4.8 mg/dl (0.2-1.0); Creatinine Clr Calc Pharmacy 121.3 ml/min; Est GFR (African American) 114.5 ml/min; Est GFR (Non-African American) 98.8 ml/min; Globulin 3.9 gm/dl (2.5-4.0); Magnesium 1.7 mg/dl (1.7-2.4); Phosphorus 2.7 mg/dl (2.5-4.9); Potassium 3.8 mmol/L (3.5-5.1); Total Protein 6.1 gm/dl (6.0-8.3)
[2024-05-27 07:05] LABS: Hematocrit (blood only) 30.4 % (42.0-52.0); Hemoglobin 10.5 g/dl (14.0-18.0); Mean Corpuscular Hemoglobin 36.7 pg (25.0-34.0); Mean Corpuscular Hgb Conc 34.5 g/dL (32.0-36.0); Mean Corpuscular Volume 106.3 fL (80.0-100.0); Mean Platelet Volume 11.4 fL (9.4-12.4); Platelet Count 59 K/uL (130-400); RDW Coefficient of Variation 16.4 % (11.5-14.5); RDW Standard Deviation 64.4 fL (36.4-46.3); Red Blood Count 2.86 M/uL (4.70-6.10); White Blood Count 4.29 K/ul (4.8-10.8)
[2024-05-27 08:01] LABS: Appearance Urine Clear (Clear); Bacteria Urine Automated None Seen (None Seen); Bilirubin Urine 1+ (Negative); Blood Urine Negative (Negative); Cast Urine Automated 0-2 /lpf (0-2); Color Urine Orange; Epithelial Cell Urine Auto 0-2 /hpf (0-2); Glucose Urine UA Negative (Negative); Ketones Urine Trace (Negative); Leukocyte Esterase Urine Trace (Negative); Nitrite Urine Negative (Negative); Protein Urine Negative (Negative); RBC Urine Automated 0-2 /hpf (0-2); Specific Gravity Urine 1.021 (1.000-1.030); Urobilinogen Urine Negative (Negative); WBC Urine Automated 0-5 /hpf (0-5); pH Urine 5.5 (4.5-7.5)
[2024-05-27] MEDS: ASCORBIC ACID 500 MG TAB PO SCH (08:35)
[2024-05-27] MEDS: allopurinoL 300 MG TAB PO SCH (08:35)
[2024-05-27] MEDS: LACTULOSE SYRUP 10 GM/15 ML BTL 960 ML PO SCH (08:35)
[2024-05-27] MEDS: MULTIVITAMIN TAB PO SCH (08:35)
[2024-05-27] MEDS: PANTOprazole 40 MG TAB PO SCH (08:35)
[2024-05-27] MEDS: TAMSULOSIN HCL 0.4 MG CAP PO SCH (08:35)
[2024-05-27] MEDS: carvediloL 6.25 MG TAB PO SCH (08:35)
[2024-05-27] MEDS: ATORVASTATIN 20 MG TAB PO SCH (09:56)
[2024-05-27] MEDS: LANTUS PER UNIT CHARGE SQ SCH (09:59)
[2024-05-27] MEDS: INSULIN ASPART PER UNIT CHARGE SC SCH (10:00)
--- NOTE | 2024-05-27 13:52 | Hospitalist Progress Note ---
Date of Service May 27, 2024 Assessment & Plan (1) Acute hepatic encephalopathy: (2) Hepatocellular carcinoma: (3) 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: (4) Thrombocytopenia: (5) Diabetes mellitus, type 2: (6) Gout: Plan 58-year-old male with history of Gonzales cirrhosis, hepatocellular carcinoma status post TACE with refractory ascites, recurrent hepatic encephalopathy, diabetes type 2, hyperlipidemia, hypertension, gout, moderate , thrombocytopenia who presented to ED 05/26 with altered mental status. He is being managed for the following: Acute hepatic encephalopathy due to medication non compliance- At presentation: Ammonia elevated 137. Asterixis +. AAOx2. Confused. Continue with lactulose 45 g qid along with rifaximin to titrate to 3-4 loose BM daily. If he gets lethargic and unable to take po, will need to consider lactulose sy ma. No other causative etiology could be identified. Abd benign with no tenderness, no fever or leucocytosis, low concern for SBP. Electrolytes stable. Will DC IV fluid, patient with better p.o. intake, will resume diuretics. Patient with no bowel movement, will continue to observe until bowel movement improves. GONZALES cirrhosis, hepatocellular carcinoma s/p embolization on 08/02/23- Follow up with GI. Plan as above Pancytopenia due to cirrhosis- chronic at baseline Hyponatremia- mild due to cirrhosis, stable. Hypophosphatemia- Monitor and replete. DM-2- recently started on lantus 10 U q am with metformin 500 bid. Glimiperide and actos discontinued. Will continue lantus, SSI, hold metformin. HTN- on coreg, will continue DVT ppx- SCD. Chemoppx C/I with thrombocytopenia Dispo- Medsurg Full code. Admission and Anticipated Discharge Date Admission Date: May 26, 2024 Subjective Patient was seen and examined at bedside. Patient was lying in bed, on room air, NAD, reports 1 bowel movement yesterday but no bowel movement today. Patient denies abdominal pain or fever or chest pain or shortness of breath. Physical Exam Physical Exam: General: Lying comfortably in bed, not in distress, on room air HEENT: IVAN, MMM Chest: Clear breath sounds bilaterally, no wheezes or crackles CVS: Regular rate and rhythm, normal heart sounds, no murmur Abdomen: Soft, non tender, distended, normal bowel sounds Neuro: Awake, alert, oriented x3. Extremities: No edema Results & Data Results & Data Vital Signs (Past 12 Hours) Vital Signs Temp Pulse Pulse Resp BP BP Pulse Ox 05/27/24 11:17 36.6 C 59 L 18 96/62 L 98 05/27/24 07:38 36.5 C 60 17 111/71 99 05/27/24 07:10 64 05/27/24 04:11 36.7 C 74 18 125/76 97 O2 Del Method 05/27/24 11:17 Room Air 05/27/24 07:38 Room Air 05/27/24 07:10 05/27/24 04:11 Room Air
--- NOTE | 2024-05-28 03:42 | Communication Note ---
Date of Service: May 28, 2024 Patient SBP 90s as per RN. Patient asymptomatic. AP Hypotension IV albumin 1 dose now Decrease maintenance Coreg dose Consider switching Coreg to metoprolol if in persistent hypotension
[2024-05-28] MEDS: ALBUMIN 25% 25 GM/100 ML VIAL IV ONE (03:51)
[2024-05-28 05:03] LABS: Albumin Globulin Ratio 0.6 (0.9-2); Albumin Level 2.2 gm/dl (3.4-5.0); Bilirubin,Total 3.4 mg/dl (0.2-1.0); Calcium 7.9 mg/dl (8.6-10.3); Creatinine Clr Calc Pharmacy 101.8 ml/min; Est GFR (African American) 103.8 ml/min; Est GFR (Non-African American) 89.5 ml/min; Globulin 3.6 gm/dl (2.5-4.0); Magnesium 1.6 mg/dl (1.7-2.4); Phosphorus 2.7 mg/dl (2.5-4.9); Potassium 4.1 mmol/L (3.5-5.1); Total Protein 5.8 gm/dl (6.0-8.3)
[2024-05-28 05:35] LABS: Hematocrit (blood only) 28.5 % (42.0-52.0); Hemoglobin 9.7 g/dl (14.0-18.0); Mean Corpuscular Hemoglobin 36.2 pg (25.0-34.0); Mean Corpuscular Volume 106.3 fL (80.0-100.0); Mean Platelet Volume 11.4 fL (9.4-12.4); Platelet Count 63 K/uL (130-400); RDW Coefficient of Variation 16.2 % (11.5-14.5); RDW Standard Deviation 63.2 fL (36.4-46.3); Red Blood Count 2.68 M/uL (4.70-6.10); White Blood Count 4.81 K/ul (4.8-10.8)
--- NOTE | 2024-05-28 06:01 | Electrocardiogram Report ---
Test Reason : Blood Pressure : / mmHG Vent. Rate : 066 BPM Atrial Rate : 066 BPM P-R Int : 162 ms QRS Dur : 092 ms QT Int : 448 ms P-R-T Axes : 046 032 057 degrees QTc Int : 469 ms Normal sinus rhythm Normal ECG When compared with ECG of 26-MAY-2024 17:26, No significant change was found Confirmed by Chucho Wellington ([id number]) on 05/28/2024 6:01:09 AM Referred By: REFERRED SELF Confirmed By:Chucho Wellington
--- NOTE | 2024-05-28 06:01 | Electrocardiogram Report ---
Test Reason : Blood Pressure : / mmHG Vent. Rate : 066 BPM Atrial Rate : 066 BPM P-R Int : 162 ms QRS Dur : 088 ms QT Int : 440 ms P-R-T Axes : 053 041 058 degrees QTc Int : 461 ms Normal sinus rhythm Normal ECG When compared with ECG of 27-FEB-2024 11:08, No significant change was found Confirmed by Chucho Wellington ([id number]) on 05/28/2024 6:00:55 AM Referred By: REFERRED SELF Confirmed By:Chucho Wellington
[2024-05-28] MEDS: carvediloL 3.125 MG TAB PO SCH (08:03)
[2024-05-28] MEDS: FUROSEMIDE 40 MG TAB PO SCH (08:09)
[2024-05-28] MEDS: SPIRONOLACTONE 100 MG TAB PO SCH (08:09)
[2024-05-28] MEDS: MAGNESIUM SULFATE / D5W 1 GM/100 ML BAG IV SCH (08:16)
[2024-05-28] MEDS: ACETAMINOPHEN 500 MG TAB PO PRN (12:20)
[2024-05-28] MEDS: SODIUM CHLORIDE 0.9% 1,000 ML IV SCH (13:35)
[2024-05-28] MEDS: ALBUMIN 25% 25 GM/100 ML VIAL IV SCH (13:35)
--- NOTE | 2024-05-28 16:03 | XRay Report ---
XR chest 1V portable HISTORY: 58 years-old Male ro infxn acute shortness of breath COMPARISON: 05/26/2024 TECHNIQUE: AP view of the chest FINDINGS: Cardiac silhouette is enlarged. Electronic device projects over the left chest. Unchanged mild blunti ng of the lateral left costophrenic angle. No pneumothorax or large pleural effusion. Bones appear in tact. Mild bibasilar atelectasis. IMPRESSION: Cardiomegaly without acute process. ACT 112: Negative or not required by law. The above report was generated using voice recognition software. It may contain grammatical, syntax o r spelling errors. Electronically signed by: Alfredo Thornton M.D. 05/28/2024 4:02 PM
--- NOTE | 2024-05-28 16:26 | Hospitalist Progress Note ---
Date of Service May 28, 2024 Assessment & Plan (1) Acute hepatic encephalopathy: (2) Hepatocellular carcinoma: (3) 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: (4) Thrombocytopenia: (5) Diabetes mellitus, type 2: (6) Gout: Plan 58-year-old male with history of Gonzales cirrhosis, hepatocellular carcinoma status post TACE with refractory ascites, recurrent hepatic encephalopathy, diabetes type 2, hyperlipidemia, hypertension, gout, moderate , thrombocytopenia who presented to ED 05/26 with altered mental status. He is being managed for the following: Acute hepatic encephalopathy due to medication non compliance- At presentation: Ammonia elevated 137. Asterixis +. AAOx2. Confused. Continue with lactulose 45 g qid along with rifaximin to titrate to 3-4 loose BM daily. If he gets lethargic and unable to take po, will need to consider lactulose sy ma. No other causative etiology could be identified. Abd benign with no tenderness, no fever or leucocytosis, low concern for SBP. Electrolytes stable. Patient moving bowels per goal. Hypotension: patient running soft blood pressure today, rule out infection [CXR, UA, blood culture], hold diuretics and Coreg, start IV fluid, given 1 dose of midodrine, continue with IV albumin. Monitor. GONZALES cirrhosis, hepatocellular carcinoma s/p embolization on 08/02/23- Follow up with GI. Plan as above Pancytopenia due to cirrhosis- chronic at baseline Hyponatremia- mild due to cirrhosis, stable. Hypophosphatemia- Monitor and replete. DM-2- recently started on lantus 10 U q am with metformin 500 bid. Glimiperide and actos discontinued. Will continue lantus, SSI, hold metformin. HTN- on coreg, will continue DVT ppx- SCD. Chemoppx C/I with thrombocytopenia Dispo- Medsurg Full code. Admission and Anticipated Discharge Date Admission Date: May 26, 2024 Subjective Patient was seen and examined at bedside. Patient was lying in bed, on room air, NAD, has 6 bm yesterday and 3 today. Patient denies abdominal pain or fever or chest pain or shortness of breath. Patient has soft blood pressure today, denies febrile illness or cough or pain or burning while passing urine. Physical Exam Physical Exam: General: Lying comfortably in bed, not in distress, on room air HEENT: IVAN, MMM Chest: Clear breath sounds bilaterally, no wheezes or crackles CVS: Regular rate and rhythm, normal heart sounds, no murmur Abdomen: Soft, non tender, distended, normal bowel sounds Neuro: Awake, alert, oriented x3. Extremities: No edema Results & Data Results & Data Vital Signs (Past 12 Hours) Vital Signs Temp Pulse Pulse Resp BP BP Pulse Ox 05/28/24 15:18 99/65 L 05/28/24 15:10 36.5 C 70 15 82/53 L 98 05/28/24 13:55 68 05/28/24 10:53 36.9 C 65 15 89/55 L 97 05/28/24 07:36 36.8 C 70 15 95/60 L 98 05/28/24 07:17 70 05/28/24 05:23 102/66 O2 Del Method 05/28/24 15:18 05/28/24 15:10 Room Air 05/28/24 13:55 05/28/24 10:53 Room Air 05/28/24 07:36 Room Air 05/28/24 07:17 05/28/24 05:23
[2024-05-28] MEDS: MIDODRINE HCL 2.5 MG TAB PO ONE (16:44)
[2024-05-28 20:13] LABS: Appearance Urine Clear (Clear); Bilirubin Urine Negative (Negative); Blood Urine Negative (Negative); Color Urine Dark Yellow; Glucose Urine UA Negative (Negative); Ketones Urine Trace (Negative); Leukocyte Esterase Urine Negative (Negative); Nitrite Urine Negative (Negative); Protein Urine Negative (Negative); Specific Gravity Urine 1.025 (1.000-1.030); Urobilinogen Urine Negative (Negative); pH Urine 5.5 (4.5-7.5)
[2024-05-29 06:46] LABS: Hematocrit (blood only) 24.6 % (42.0-52.0); Hemoglobin 8.6 g/dl (14.0-18.0); Mean Corpuscular Hemoglobin 36.4 pg (25.0-34.0); Mean Corpuscular Volume 104.2 fL (80.0-100.0); Mean Platelet Volume 11.3 fL (9.4-12.4); Platelet Count 49 K/uL (130-400); RDW Coefficient of Variation 16.1 % (11.5-14.5); RDW Standard Deviation 61.5 fL (36.4-46.3); Red Blood Count 2.36 M/uL (4.70-6.10); White Blood Count 3.45 K/ul (4.8-10.8)
[2024-05-29 07:18] LABS: BUN Creatinine Ratio 13.3 (10-20); Calcium 7.9 mg/dl (8.6-10.3); Creatinine Clr Calc Pharmacy 127.3 ml/min; Est GFR (African American) 116.4 ml/min; Est GFR (Non-African American) 100.4 ml/min; Magnesium 1.6 mg/dl (1.7-2.4); Phosphorus 2.1 mg/dl (2.5-4.9)
[2024-05-29] MEDS: ATORVASTATIN 20 MG TAB PO SCH (07:37)
[2024-05-29] MEDS: POT PHOSPHATE MONOBASIC W/ SOD TAB PO ONE (08:32)
[2024-05-29] MEDS: MAGNESIUM OXIDE 400 MG TAB PO SCH (08:33)
[2024-05-29] MEDS: MAGNESIUM SULFATE / D5W 1 GM/100 ML BAG IV ONE (08:46)
--- NOTE | 2024-05-29 12:38 | Hospitalist Progress Note ---
Date of Service May 29, 2024 Assessment & Plan (1) Acute hepatic encephalopathy: (2) Hepatocellular carcinoma: (3) 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: (4) Thrombocytopenia: (5) Diabetes mellitus, type 2: (6) Gout: Plan 58-year-old male with history of Gonzales cirrhosis, hepatocellular carcinoma status post TACE with refractory ascites, recurrent hepatic encephalopathy, diabetes type 2, hyperlipidemia, hypertension, gout, moderate , thrombocytopenia who presented to ED 05/26 with altered mental status. He is being managed for the following: Acute hepatic encephalopathy due to medication non compliance- At presentation: Ammonia elevated 137. Asterixis +. AAOx2. Confused. Continue with lactulose 45 g qid along with rifaximin to titrate to 3-4 loose BM daily. Altered mental status resolved Hypotension: BP has been hypotensive since yesterday Got IVF, albumin and coreg held Hb today is lower than yesterday but this may be dilutional from fluids yesterday Will defer dc today and monitor Blood cultures sent yesterday still inlab Hypotension may be related to cirrhosis if infection in ruled out Plan to discontinue coreg even on discharge Patient is to keep home BP log for PCP GONZALES cirrhosis, hepatocellular carcinoma s/p embolization on 08/02/23- Needs to follow up with GI and IR Pancytopenia due to cirrhosis Hyponatremia- mild due to cirrhosis, stable. Hypophosphatemia and hypomagnesemia- Monitor and replete. DM-2- recently started on lantus 10 U q am with metformin 500 bid. Glimiperide and actos discontinued. Continue lantus, SSI Continue to hold metformin inpatient DVT ppx- SCD. Chemoppx C/I with thrombocytopenia Dispo- Medsurg Full code. I spent a total of 45 minutes coordinating, documenting and providing care for this patient excluding time spent in performance of separately billed services Admission and Anticipated Discharge Date Admission Date: May 26, 2024 Subjective Patient seen and examined Denied any new complaints today Denied melena, hematochezia, hematemesis No dizziness, headache, confusion Physical Exam Constitutional: + well hydrated; no acute distress Eyes: PERRL, conjunctivae normal, anicteric sclerae ENMT: external ear and nose normal, oropharynx normal Respiratory: normal respiratory effort, lungs clear to auscultation Cardiovascular: Rate/Rhythm: regular rate and regular rhythm Gastrointestinal (Abdomen): Soft, protuberant, nontender, normal bowel sounds Musculoskeletal: No pedal edema Neurologic: PERRL, EOMI, accommodation nl, no face palsy, no dysarthria Psychiatric: A+Ox3, euthymic affect Results & Data Results & Data Vital Signs (Past 12 Hours) Vital Signs Temp Pulse Pulse Resp BP Pulse Ox O2 Del Method 05/29/24 10:51 36.7 C 73 16 92/53 L 98 Room Air 05/29/24 08:21 84 05/29/24 07:31 36.8 C 83 16 111/61 97 Room Air 05/29/24 03:00 37.1 C 71 16 93/61 L 97 Room Air Laboratory Results Abnormal lab results 05/28/24 05/28/24 05/28/24 Range/Units 17:18 19:52 20:19 WBC (4.8-10.8) K/ul RBC (4.70-6.10) M/uL Hgb (14.0-18.0) g/dl Hct (42.0-52.0) % MCV (80.0-100.0) fL MCH (25.0-34.0) pg RDW Std Deviation (36.4-46.3) fL RDW Coeff of Polo (11.5-14.5) % Plt Count (130-400) K/uL Sodium (136-145) mmol/L Carbon Dioxide (21-32) mmol/L Glucose (70-99(Fasting)) mg/dl POC Glucose 135 H 148 H (70-99) mg/dl Calcium (8.6-10.3) mg/dl Phosphorus (2.5-4.9) mg/dl Magnesium (1.7-2.4) mg/dl Urine Ketones Trace H (Negative) 05/29/24 05/29/24 05/29/24 Range/Units 06:18 07:53 11:53 WBC 3.45 L (4.8-10.8) K/ul RBC 2.36 L (4.70-6.10) M/uL Hgb 8.6 L (14.0-18.0) g/dl Hct 24.6 L (42.0-52.0) % MCV 104.2 H (80.0-100.0) fL MCH 36.4 H (25.0-34.0) pg RDW Std Deviation 61.5 H (36.4-46.3) fL RDW Coeff of Polo 16.1 H (11.5-14.5) % Plt Count 49 L (130-400) K/uL Sodium 132 L (136-145) mmol/L Carbon Dioxide 20 L (21-32) mmol/L Glucose 129 H (70-99(Fasting)) mg/dl POC Glucose 116 H 188 H (70-99) mg/dl Calcium 7.9 L (8.6-10.3) mg/dl Phosphorus 2.1 L (2.5-4.9) mg/dl Magnesium 1.6 L (1.7-2.4) mg/dl Urine Ketones (Negative)
[2024-05-29 17:16] LABS: Hematocrit (blood only) 26.9 % (42.0-52.0); Hemoglobin 9.5 g/dl (14.0-18.0)
[2024-05-30 08:20] LABS: Hematocrit (blood only) 25.1 % (42.0-52.0); Hemoglobin 8.7 g/dl (14.0-18.0); Mean Corpuscular Hemoglobin 36.6 pg (25.0-34.0); Mean Corpuscular Hgb Conc 34.7 g/dL (32.0-36.0); Mean Corpuscular Volume 105.5 fL (80.0-100.0); Mean Platelet Volume 11.5 fL (9.4-12.4); Platelet Count 56 K/uL (130-400); RDW Coefficient of Variation 16.3 % (11.5-14.5); RDW Standard Deviation 61.8 fL (36.4-46.3); Red Blood Count 2.38 M/uL (4.70-6.10); White Blood Count 4.22 K/ul (4.8-10.8)
[2024-05-30 08:35] LABS: Albumin Level 2.8 gm/dl (3.4-5.0); BUN Creatinine Ratio 11.8 (10-20); Bilirubin,Total 2.9 mg/dl (0.2-1.0); Creatinine Clr Calc Pharmacy 124.8 ml/min; Est GFR (African American) 115.7 ml/min; Est GFR (Non-African American) 99.9 ml/min; Globulin 2.9 gm/dl (2.5-4.0); Potassium 4.2 mmol/L (3.5-5.1); Total Protein 5.7 gm/dl (6.0-8.3)
[2024-05-30 08:42] LABS: INR 1.6 (0.9-1.1); Prothrombin Time 17.1 Seconds (9.0-12.0)
--- NOTE | 2024-05-30 10:27 | Discharge Summary ---
Date of Service May 30, 2024 Admission HPI Per Admitting Provider 58-year-old male with history of Wells cirrhosis, hepatocellular carcinoma status post TACE with refractory ascites, recurrent hepatic encephalopathy, diabetes type 2, hyperlipidemia, hypertension, gout, moderate , thrombocytopenia who presented to ED today with altered mental status.Patient was seen and examined bedside. he is awake alert oriented, answering simple questions appropriately, however not able to recall or answer everything, although he says he is feeling better. states he usually takes all his medication including lactulose and has multiple bowel movements daily but he states his last bowel movement was about 2 days ago. He denies any fever, chills, chest pain, shortness of breath, nausea, vomiting, diarrhea, dysuria, abdominal pain. He cannot recall the name of his medications. He does not smoke or drink alcohol. I spoke to his brother Cory over the phone and corroborated the history. Patient is confused and mixing things up. Verified the medications with the brother. States he might be non compliant with his lactulose. Admission Exam Per Admitting Provider General: Lying comfortably in bed, not in distress, on room air HEENT: IVAN, MMM Chest: Clear breath sounds bilaterally, no wheezes or crackles CVS: Regular rate and rhythm, normal heart sounds, no murmur Abdomen: Soft, non tender, distended, normal bowel sounds Neuro: Awake, alert, oriented x2. Answering simple questions appropriately but confused at times. Asterixis + Extremities: No edema Principal Diagnosis Hepatic encephalopathy Hypotension Discharge Exam Constitutional + well hydrated; no acute distress Eyes PERRL, conjunctivae normal, anicteric sclerae ENMT external ear and nose normal, oropharynx normal Respiratory normal respiratory effort, lungs clear to auscultation Cardiovascular Rate/Rhythm: regular rate and regular rhythm Gastrointestinal (Abdomen) Soft, protuberant, nontender, normal bowel sounds Musculoskeletal No pedal edema Neurologic PERRL, EOMI, accommodation nl, no face palsy, no dysarthria Psychiatric A+Ox3, euthymic affect Discharge Data Allergies Allergy/AdvReac Type Severity Reaction Status Date / Time aspirin Allergy Intermediate NOSE Verified 01/11/24 08:15 BLEEDS--IF TAKES REGULARLY Consultations 05/26/24 19:23 ED Decision to Admit Stat Ordered Studies 05/26/24 18:10 CT head/brain wo con Stat Hospital Course (1) Acute hepatic encephalopathy: (2) Hepatocellular carcinoma: (3) Liver cirrhosis secondary to WELLS: (4) Thrombocytopenia: (5) Diabetes mellitus, type 2: (6) Gout: Plan 58-year-old male with history of [place] cirrhosis, hepatocellular carcinoma status post TACE with refractory ascites, recurrent hepatic encephalopathy, diabetes type 2, hyperlipidemia, hypertension, gout, moderate , thrombocytopenia who presented to ED 05/26 with altered mental status. He is being managed for the following: Acute hepatic encephalopathy due to medication non compliance- At presentation: Ammonia elevated 137. Asterixis +. AAOx2. Confused. Continue with lactulose 45 g qid along with rifaximin to titrate to 3-4 loose BM daily. Altered mental status resolved Hypotension: Had hypotensive episodes inpatient Got IVF, albumin and coreg held Blood cultures negative Hypotension likely related to cirrhosis Home Coreg discontinued. Patient advised to keep home BP log for PCP WELLS cirrhosis, hepatocellular carcinoma s/p embolization on 08/02/23- Needs to follow up with GI and IR Pancytopenia due to cirrhosis Hyponatremia- mild due to cirrhosis, stable. Hypophosphatemia and hypomagnesemia- Repleted DM-2- recently started on lantus 10 U q am with metformin 500 bid. Glimiperide and actos discontinued. Continue home antidiabetics Total Time Total Time Spent Total Time Spent (In Minutes): 35 Discharge Plan Discharge Items Patient Disposition: Home - Self-Care Reason For Visit: Altered mental status Discharge Diagnosis: Hepatic encephalopathy Hypotension Activity: Resume your previous activity Non-emergency contact: Primary Care Provider and Project Landscape Architect Call non-emergency contact if: you have any medication questions and your symptoms worsen Follow-up/Referrals: Krystian Palomo MD [Primary Care Provider] - Diet: Carb Consistent or DM2, Heart Healthy and Low Sodium (2gm) Addtl Attending Provider Instructions: Mr Spencer You were admitted to the hospital and managed for the above listed diagnoses. Please stop taking your Coreg (Carvedilol) for now. Please keep a home blood pressure log as we discussed for your Primary Doctor. Please ensure follow up with your Primary Doctor, Project Landscape Architect and Interventional radiologist. Please ensure you take your medications including lactulose as prescribed. It was a pleasure taking care of you. Pending Studies at Discharge: No Stand-Alone Forms: My [facility], Smoking Cessation Medications and DC Order Prescriptions: Continued metformin 500 mg Tablet 500 mg PO BIDM Rx Instructions: been over a year since filled. Original dose 500 mg allopurinol 300 mg Tablet 300 mg PO QAM multivitamin Tablet 1 tab PO QAM Rx Instructions: otc unable to verify atorvastatin 20 mg tablet 0 mg PO QAM Rx Instructions: Last filled in September 2023. Original dose 20 mg ascorbic acid (vitamin C) [Vitamin C] 1,000 mg Tablet 1 g PO QAM Rx Instructions: otc unable to verify mupirocin 2 % Ointment 1 applic EXT TID Qty: 20 0RF Rx Instructions: last filled jul 2023 tamsulosin 0.4 mg capsule 0.4 mg PO DAILY Xifaxan 550 mg tablet 550 mg PO BID Lantus Solostar U-100 Insulin 10 unit subcut DAILY omeprazole 20 mg capsule,delayed release(DR/EC) 20 mg PO QAM spironolactone 25 mg tablet 100 mg PO QAM furosemide 20 mg tablet 40 mg PO QAM lactulose 20 gram/30 mL solution 45 g PO TID 30 Days Qty: 3000 1RF Rx Instructions: last filled in May 2023 Adjust dose up or down to maintain 3-4 loose BMs per day Discontinued carvedilol 6.25 mg tablet 6.25 mg PO BID Discharge Orders: Discharge Order (Routine); Ordered 05/30/24 Ordered By: Suzie Brooks Admission Data Admit Date/Time: 05/26/24 20:45 Attending Provider: Suzie Brooks I. Admit Provider: Howie Dunbar Primary Care Provider: Krystian Palomo Other Providers: Howie Dunbar; Lucio Barros Other Interventions: Discharge Summary Assessment (RN) Last Done: 05/30/24 10:28
== END 2024-05-30 12:25 | disposition home or self-care (01) | DRG 442 ==
LOC: ED 17:20 → SUATTDRO 20:45 → 2N 20:45

== ENCOUNTER 2024-06-21 18:53 | Inpatient (IN) ==
[2024-06-21 19:56] LABS: Base Excess VBG -2.9 mEq/L; HCO3 VBG 22 mmol/L; Oxygen Saturation VBG < 60.0 %; PCO2 VBG 38 mmHg (38-50); PO2 VBG 33 mmHg; pH VBG 7.37 (7.36-7.41)
[2024-06-21 19:59] LABS: Basophils # (auto) 0.09 K/uL (0.00-0.20); Basophils % (auto) 1.9 %; Eosinophils # (auto) 0.13 K/uL (0.00-0.50); Eosinophils % (auto) 2.7 %; Hematocrit (blood only) 30.4 % (42.0-52.0); Hemoglobin 10.6 g/dl (14.0-18.0); Immature Granulocytes # (auto) 0.03 K/uL (0.01-0.20); Immature Granulocytes % (auto) 0.6 %; Lymphocytes # (auto) 0.53 K/uL (1.20-3.40); Lymphocytes % (auto) 11.1 %; Mean Corpuscular Hemoglobin 36.4 pg (25.0-34.0); Mean Corpuscular Hgb Conc 34.9 g/dL (32.0-36.0); Mean Corpuscular Volume 104.5 fL (80.0-100.0); Mean Platelet Volume 11.7 fL (9.4-12.4); Monocytes # (auto) 0.78 K/uL (0.11-0.59); Monocytes % (auto) 16.4 %; Neutrophils # (auto) 3.21 K/uL (1.40-6.50); Neutrophils % (auto) 67.3 %; Platelet Count 78 K/uL (130-400); RDW Coefficient of Variation 14.8 % (11.5-14.5); RDW Standard Deviation 56.9 fL (36.4-46.3); Red Blood Count 2.91 M/uL (4.70-6.10); White Blood Count 4.77 K/ul (4.8-10.8)
[2024-06-21 20:06] LABS: INR 1.4 (0.9-1.1); Partial Thromboplastin Ratio 1.1; Partial Thromboplastin Time 30 Seconds (21-31); Prothrombin Time 14.7 Seconds (9.0-12.0)
[2024-06-21 20:12] LABS: Albumin Globulin Ratio 0.7 (0.9-2); Albumin Level 2.9 gm/dl (3.4-5.0); BUN Creatinine Ratio 12.7 (10-20); Bilirubin,Total 3.9 mg/dl (0.2-1.0); Calcium 8.8 mg/dl (8.6-10.3); Creatinine Clr Calc Pharmacy 97.9 ml/min; Est GFR (African American) 92.8 ml/min; Est GFR (Non-African American) 80.1 ml/min; Globulin 4.3 gm/dl (2.5-4.0); Magnesium 1.8 mg/dl (1.7-2.4); Potassium 3.8 mmol/L (3.5-5.1); Total Protein 7.2 gm/dl (6.0-8.3)
[2024-06-21 20:24] LABS: Acetaminophen < 3 ug/ml (10-30); Salicylate < 3.0 mg/dl (3.0-30)
[2024-06-21] MEDS: SODIUM CHLORIDE 0.9% 1,000 ML IV SCH (20:24)
[2024-06-21 20:30] LABS: Adenovirus PCR Not Detected (NotDetected); Bordetella parapertussis PCR Not Detected (NotDetected); Bordetella pertussis PCR Not Detected (NotDetected); Chlamydia pneumoniae PCR Not Detected (NotDetected); Coronavirus 229E PCR Not Detected (NotDetected); Coronavirus CoV-2 (COVID19)PCR Not Detected (NotDetected); Coronavirus HKU1 PCR Not Detected (NotDetected); Coronavirus NL63 PCR Not Detected (NotDetected); Coronavirus OC43PCR Not Detected (NotDetected); Human Metapneumovirus PCR Not Detected (NotDetected); Influenza A PCR Not Detected (NotDetected); Influenza B PCR Not Detected (NotDetected); Mycoplasma pneumoniae PCR Not Detected (NotDetected); Parainfluenza Virus 1 PCR Not Detected (NotDetected); Parainfluenza Virus 2 PCR Not Detected (NotDetected); Parainfluenza Virus 3 PCR Not Detected (NotDetected); Parainfluenza Virus 4 PCR Not Detected (NotDetected); Respiratory Syncytial VirusPCR Not Detected (NotDetected); Rhinovirus/Enterovirus PCR Not Detected (NotDetected)
[2024-06-21] MEDS: LACTULOSE SYRUP 30 GM/45 ML UDP PO STA (21:41)
[2024-06-21] MEDS: MAGNESIUM SULFATE / D5W 1 GM/100 ML BAG IV STA (22:16)
[2024-06-21] MEDS: rifAXIMin 550 MG TABLET PO STA (22:16)
--- NOTE | 2024-06-21 22:45 | Emergency Department Note ---
History of Present Illness General Chief complaint: Illness Stated complaint: SOB, SYNCOPE, VOMITING Time Seen by Provider: 06/21/24 19:29 History of Present Illness Provider complaint: Shortness of breath nausea vomiting Onset (ago): day(s) 1 58-year-old male presents emergency department for shortness of breath nausea and vomiting. Patient reports his symptoms started earlier today. Patient reports he felt very weak and felt like he was going to pass out. No chest pain or difficulty breathing. Patient reports he did not lose consciousness. No falls or traumas. Patient reports that when he got to the emergency department his symptoms have since resolved. Patient reports he has not been compliant with his medications including his lactulose Home Medications Medication Instructions Recorded Confirmed Type allopurinol 300 mg tablet 300 mg PO QAM 06/03/19 06/21/24 History metformin 500 mg tablet 500 mg PO BIDM 06/03/19 06/21/24 History multivitamin 1 tab PO QAM 06/03/19 06/21/24 History atorvastatin 20 mg tablet 20 mg PO QAM 04/21/21 06/21/24 History ascorbic acid (vitamin C) 1,000 mg 1 g PO QAM 08/27/23 06/21/24 History tablet (Vitamin C) tamsulosin 0.4 mg capsule 0.4 mg PO DAILY 10/04/23 06/21/24 History rifaximin 550 mg tablet (Xifaxan) 550 mg PO BID 01/02/24 06/21/24 History furosemide 20 mg tablet 40 mg PO QAM 02/27/24 06/21/24 History omeprazole 20 mg capsule,delayed 20 mg PO QAM 02/27/24 06/21/24 History release spironolactone 25 mg tablet 100 mg PO QAM 02/27/24 06/21/24 History lactulose 20 gram/30 mL oral 45 g (67.5 mL) PO TID Cirrhosis 30 02/29/24 06/21/24 Rx solution days #3,000 mL Lantus Solostar U-100 Insulin 10 unit subcut DAILY 05/26/24 06/21/24 History mupirocin 2 % topical ointment 1 applic EXT TID PRN Wound Care 06/21/24 06/21/24 History Allergies Allergy/AdvReac Type Severity Reaction Status Date / Time aspirin Allergy Intermediate NOSE Verified 01/11/24 08:15 BLEEDS--IF TAKES REGULARLY Past Med/Surg History Problem List (Updated 06/21/24 @ 22:45 by Van Aiken MD) Acute hepatic encephalopathy (Acute) Acute hyponatremia (Acute) Ureterolithiasis Medical non-compliance (Acute) Hyperammonemia (Acute) Acute hyperglycemia (Acute) Acute hyponatremia (Acute) Ascites (Acute) Urinary retention Cirrhosis (Acute) UTI (urinary tract infection) Sepsis Abdominal pain (Acute) Morbid obesity Hepatic encephalopathy Acute hepatic encephalopathy (Acute) Acute alteration in mental status (Acute) Pancytopenia (Acute) Encounter for screening colonoscopy Encounter for pre-operative examination Mid back pain Fall due to slipping on ice or snow Right rib fracture Ascites (Acute) Hepatocellular carcinoma possibly carcinogenic - pt unsure if it has been confirmed. 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 "if i get up to fast". S/P abdominal paracentesis Fracture of rib of right side 2013 Anaplasmosis 2019 Acute hepatic encephalopathy Cardiac murmur HX Hypertension hx - no current medications, patient reports having hypotension, no problems since stopping his blood pressure medications Right rib fracture hx ~. Surgical History History of esophagogastroduodenoscopy (EGD) History of colonoscopy Family History Mother History of colonoscopy Brother Family history of diabetes mellitus Brother Family history of diabetes mellitus Grandmother (Paternal) Family history of diabetes mellitus Other No family history of adverse response to anesthesia Social History Smoking Status: Former smoker Tobacco Type: Cigarettes Second Hand Exposure: No; Do You Dip or Chew Tobacco: Yes; Hx Alcohol Use: No Hx Substance Use: No Preferred Language: Greenlandic Communication Ability: Effective Client Account Specialist Required: No Beliefs That Will Affect Care: None marital status: Single Current Living Situation: Family Current Living Situation Comment: mom and daughter live with him Feels Safe at Home: Yes Assistive Devices: None Physical Exam Vital Signs Vital Signs - 24 hr 06/21/24 19:04 06/21/24 19:11 06/21/24 19:15 Temperature 36.6 C Temperature Source Oral Pulse Rate 97 H 95 H 108 H Pulse Rate from SpO2 Sensor 107 H Pulse Rhythm Regular Pulse Strength Normal Respiratory Rate 22 22 Respiratory Effort / Characteristics Non-Labored Respiratory Depth Normal Respiratory Pattern Regular Blood Pressure 123/59 L Blood Pressure Mean 80 Blood Pressure Position Lying Pulse Oximetry 98 100 Oxygen Delivery Method Room Air Sepsis Recent Fever Within 48 Hours No Sepsis New/Unexplained Change in Mental Status N/A Sepsis Action Taken by Nursing No Action Required 06/21/24 19:30 06/21/24 19:30 06/21/24 19:30 Temperature Temperature Source Pulse Rate Pulse Rate from SpO2 Sensor Pulse Rhythm Pulse Strength Respiratory Rate Respiratory Effort / Characteristics Respiratory Depth Respiratory Pattern Blood Pressure 128/84 128/84 128/84 Blood Pressure Mean 104 104 104 Blood Pressure Position Pulse Oximetry Oxygen Delivery Method Sepsis Recent Fever Within 48 Hours Sepsis New/Unexplained Change in Mental Status Sepsis Action Taken by Nursing 06/21/24 19:30 06/21/24 19:33 06/21/24 19:48 Temperature Temperature Source Pulse Rate 92 H 92 H Pulse Rate from SpO2 Sensor 92 H 92 H Pulse Rhythm Pulse Strength Respiratory Rate 22 19 Respiratory Effort / Characteristics Respiratory Depth Respiratory Pattern Blood Pressure 128/84 Blood Pressure Mean 104 Blood Pressure Position Pulse Oximetry 100 100 Oxygen Delivery Method Sepsis Recent Fever Within 48 Hours Sepsis New/Unexplained Change in Mental Status Sepsis Action Taken by Nursing 06/21/24 20:00 06/21/24 20:18 06/21/24 20:30 Temperature Temperature Source Pulse Rate 92 H 90 Pulse Rate from SpO2 Sensor 93 H 90 Pulse Rhythm Pulse Strength Respiratory Rate 16 17 Respiratory Effort / Characteristics Respiratory Depth Respiratory Pattern Blood Pressure 126/67 Blood Pressure Mean 88 Blood Pressure Position Pulse Oximetry 100 100 Oxygen Delivery Method Sepsis Recent Fever Within 48 Hours Sepsis New/Unexplained Change in Mental Status Sepsis Action Taken by Nursing 06/21/24 20:30 06/21/24 20:30 06/21/24 20:30 Temperature Temperature Source Pulse Rate Pulse Rate from SpO2 Sensor Pulse Rhythm Pulse Strength Respiratory Rate Respiratory Effort / Characteristics Respiratory Depth Respiratory Pattern Blood Pressure 129/69 129/69 129/69 Blood Pressure Mean 98 98 98 Blood Pressure Position Pulse Oximetry Oxygen Delivery Method Sepsis Recent Fever Within 48 Hours Sepsis New/Unexplained Change in Mental Status Sepsis Action Taken by Nursing 06/21/24 20:57 06/21/24 21:00 06/21/24 21:00 Temperature Temperature Source Pulse Rate 89 Pulse Rate from SpO2 Sensor 89 Pulse Rhythm Pulse Strength Respiratory Rate 17 Respiratory Effort / Characteristics Respiratory Depth Respiratory Pattern Blood Pressure 118/66 118/66 Blood Pressure Mean 93 93 Blood Pressure Position Pulse Oximetry 99 Oxygen Delivery Method Sepsis Recent Fever Within 48 Hours Sepsis New/Unexplained Change in Mental Status Sepsis Action Taken by Nursing 06/21/24 21:03 Temperature Temperature Source Pulse Rate 108 H Pulse Rate from SpO2 Sensor 108 H Pulse Rhythm Pulse Strength Respiratory Rate 26 H Respiratory Effort / Characteristics Respiratory Depth Respiratory Pattern Blood Pressure Blood Pressure Mean Blood Pressure Position Pulse Oximetry 100 Oxygen Delivery Method Sepsis Recent Fever Within 48 Hours Sepsis New/Unexplained Change in Mental Status Sepsis Action Taken by Nursing Physical Exam HENT: Exam performed. - Head: Normocephalic and atraumatic. EYES: Conjunctivae and EOM are normal. Pupils are equal, round, and reactive to light. NECK: Normal range of motion. Neck supple. No JVD present. No rigidity. No tracheal deviation and normal range of motion present. CV: Normal rate, regular rhythm, normal heart sounds and intact distal pulses. There is no peripheral edema. Palpable radial pulses bue. PULM/CHEST: Effort normal and breath sounds normal. No respiratory distress. No stridor. He has no wheezes. He has no rales. ABD: The abdomen is soft. Bowel sounds are normal. He has no distension. No mass is present. There is no tenderness. There is no rebound, no guarding, no Wise's sign and no tenderness at McBurney's point. Rovsig negative. No fluid wave. MUSC/SKEL: Normal range of motion. There is no peripheral edema, tenderness or deformity. LYMPH: No cervical adenopathy. NEURO: He is alert and oriented to person, place, and time. He has normal strength. No cranial nerve deficit or sensory deficit. Coordination and gait normal. GCS eye subscore is 4. GCS verbal subscore is 5. GCS motor subscore is 6. Cerebellar tests wnl. SKIN: Skin is warm and dry. He is not diaphoretic. PSYCH: He has a normal mood and affect. Behavior is normal. Judgment and thought content normal. Course Course 1928: The patient was evaluated in room A4. A complete history and physical exam was performed Cardiac monitoring: An order was placed for continuous cardiac monitoring. The monitor shows a rate of 100 with sinus rhythm interpreted by sd 2120: Vital signs stable. Patient no respiratory distress. Labs show white blood cell count 4.77. Hemoglobin 10.6. Coagulation studies within normal limits. VBG is within normal limits. Sodium 127. Total bilirubin 3.9. AST 55 ALT 34. Liver function tests are at baseline. Ammonia 121. Procalcitonin negative. Patient has had no seizure-like activity. No need for hypertonic saline at this time. Patient's hyponatremia will be treated with gentle hydration with normal saline and his elevated ammonia will be treated with lactulose. Patient will be admitted to the [facility] team. Dr. Rodriguez made aware of the patient and states he will evaluate them. Administered Medications Sodium Chloride (Nss) 1,000 mls @ 125 mls/hr IV .Q8H MOODY Stop: 07/21/24 20:29 Last Admin: 06/21/24 20:24 Dose: 125 mls/hr Documented By: ANDRES Magnesium Sulfate/Dextrose (Magnesium Sulfate / D5w) 1 gm in 100 mls @ 50 mls/hr IV ONE STA Stop: 06/21/24 23:38 Last Admin: 06/21/24 22:16 Dose: 50 mls/hr Documented By: VANDANA Discontinued Medications Lactulose (Lactulose Syrup 30 Gm/45 Ml Udp) 30 gm PO NOW STA Stop: 06/21/24 21:08 Last Admin: 06/21/24 21:41 Dose: 30 gm Documented By: VANDANA Rifaximin (Rifaximin 550 Mg Tablet) 550 mg PO NOW STA Stop: 06/21/24 21:36 Last Admin: 06/21/24 22:16 Dose: 550 mg Documented By: VANDANA Medical Decision Making Laboratory Data Attestation: I reviewed the patient's lab results. 06/21/24 19:05 06/21/24 19:05 Lab Results 06/21/24 06/21/24 06/21/24 Range/Units 19:05 19:35 19:41 WBC 4.77 L (4.8-10.8) K/ul RBC 2.91 L (4.70-6.10) M/uL Hgb 10.6 L (14.0-18.0) g/dl Hct 30.4 L (42.0-52.0) % MCV 104.5 H (80.0-100.0) fL MCH 36.4 H (25.0-34.0) pg MCHC 34.9 (32.0-36.0) g/dL RDW Std Deviation 56.9 H (36.4-46.3) fL RDW Coeff of Polo 14.8 H (11.5-14.5) % Plt Count 78 L (130-400) K/uL MPV 11.7 (9.4-12.4) fL Immature Gran % (Auto) 0.6 % Neut % (Auto) 67.3 % Lymph % (Auto) 11.1 % Stafford % (Auto) 16.4 % Eos % (Auto) 2.7 % Baso % (Auto) 1.9 % Neut # (Auto) 3.21 (1.40-6.50) K/uL Lymph # (Auto) 0.53 L (1.20-3.40) K/uL Stafford # (Auto) 0.78 H (0.11-0.59) K/uL Eos # (Auto) 0.13 (0.00-0.50) K/uL Baso # (Auto) 0.09 (0.00-0.20) K/uL Immature Gran # (Auto) 0.03 (0.01-0.20) K/uL PT 14.7 H (9.0-12.0) Seconds INR 1.4 H (0.9-1.1) APTT 30 (21-31) Seconds PTT Ratio 1.1 VBG pH 7.37 (7.36-7.41) VBG pCO2 38 (38-50) mmHg VBG pO2 33 mmHg VBG HCO3 22 mmol/L VBG O2 Saturation < 60.0 % VBG Base Excess -2.9 mEq/L Sodium 127 L (136-145) mmol/L Potassium 3.8 (3.5-5.1) mmol/L Chloride 96 L (98-107) mmol/L Carbon Dioxide 20 L (21-32) mmol/L Anion Gap 11 (3-11) BUN 13 (6-23) mg/dl Creatinine 1.02 (0.6-1.4) mg/dl Est Cr Clr Drug Dosing 97.9 ml/min Est GFR ( Amer) 92.8 ml/min Est GFR (Non-Af Amer) 80.1 ml/min BUN/Creatinine Ratio 12.7 (10-20) Glucose 292 H (70-99(Fasting)) mg/dl Osmolality 284 (280-300) mOsm/kg Calcium 8.8 (8.6-10.3) mg/dl Magnesium 1.8 (1.7-2.4) mg/dl Total Bilirubin 3.9 H (0.2-1.0) mg/dl AST 55 H (13-39) U/L ALT 34 (7-52) U/L Alkaline Phosphatase 109 H (34-104) U/L Ammonia TNP Total Protein 7.2 (6.0-8.3) gm/dl Albumin 2.9 L (3.4-5.0) gm/dl Globulin 4.3 H (2.5-4.0) gm/dl Albumin/Globulin Ratio 0.7 L (0.9-2) Lipase 64 (11-82) U/L Procalcitonin 0.07 (0-0.5) ng/ml Salicylates < 3.0 L (3.0-30) mg/dl Acetaminophen < 3 L (10-30) ug/ml Ethyl Alcohol mg/dL 11.5 H (<10.0) mg/dl Adenovirus (PCR) Not Detected (NotDetected) B. pertussis DNA (PCR) Not Detected (NotDetected) B.parapertussis DNA PCR Not Detected (NotDetected) C. pneumoniae DNA (PCR) Not Detected (NotDetected) Coronavirus OC43 (PCR) Not Detected (NotDetected) Coronavirus HKU1 (PCR) Not Detected (NotDetected) Coronavirus 229E (PCR) Not Detected (NotDetected) SARS-CoV-2 (PCR) Not Detected (NotDetected) Coronavirus NL63 (PCR) Not Detected (NotDetected) Human Metapneumovir PCR Not Detected (NotDetected) Influenza Type A (PCR) Not Detected (NotDetected) Influenza Type B (PCR) Not Detected (NotDetected) M. pneumoniae (PCR) Not Detected (NotDetected) Parainfluenza 1 (PCR) Not Detected (NotDetected) Parainfluenza 2 (PCR) Not Detected (NotDetected) Parainfluenza 3 (PCR) Not Detected (NotDetected) Parainfluenza 4 (PCR) Not Detected (NotDetected) RSV (PCR) Not Detected (NotDetected) Entero/Rhino (PCR) Not Detected (NotDetected) 06/21/24 Range/Units 20:37 WBC (4.8-10.8) K/ul RBC (4.70-6.10) M/uL Hgb (14.0-18.0) g/dl Hct (42.0-52.0) % MCV (80.0-100.0) fL MCH (25.0-34.0) pg MCHC (32.0-36.0) g/dL RDW Std Deviation (36.4-46.3) fL RDW Coeff of Polo (11.5-14.5) % Plt Count (130-400) K/uL MPV (9.4-12.4) fL Immature Gran % (Auto) % Neut % (Auto) % Lymph % (Auto) % Stafford % (Auto) % Eos % (Auto) % Baso % (Auto) % Neut # (Auto) (1.40-6.50) K/uL Lymph # (Auto) (1.20-3.40) K/uL Stafford # (Auto) (0.11-0.59) K/uL Eos # (Auto) (0.00-0.50) K/uL Baso # (Auto) (0.00-0.20) K/uL Immature Gran # (Auto) (0.01-0.20) K/uL PT (9.0-12.0) Seconds INR (0.9-1.1) APTT (21-31) Seconds PTT Ratio VBG pH (7.36-7.41) VBG pCO2 (38-50) mmHg VBG pO2 mmHg VBG HCO3 mmol/L VBG O2 Saturation % VBG Base Excess mEq/L Sodium (136-145) mmol/L Potassium (3.5-5.1) mmol/L Chloride (98-107) mmol/L Carbon Dioxide (21-32) mmol/L Anion Gap (3-11) BUN (6-23) mg/dl Creatinine (0.6-1.4) mg/dl Est Cr Clr Drug Dosing ml/min Est GFR ( Amer) ml/min Est GFR (Non-Af Amer) ml/min BUN/Creatinine Ratio (10-20) Glucose (70-99(Fasting)) mg/dl Osmolality (280-300) mOsm/kg Calcium (8.6-10.3) mg/dl Magnesium (1.7-2.4) mg/dl Total Bilirubin (0.2-1.0) mg/dl AST (13-39) U/L ALT (7-52) U/L Alkaline Phosphatase (34-104) U/L Ammonia 121.0 H Total Protein (6.0-8.3) gm/dl Albumin (3.4-5.0) gm/dl Globulin (2.5-4.0) gm/dl Albumin/Globulin Ratio (0.9-2) Lipase (11-82) U/L Procalcitonin (0-0.5) ng/ml Salicylates (3.0-30) mg/dl Acetaminophen (10-30) ug/ml Ethyl Alcohol mg/dL (<10.0) mg/dl Adenovirus (PCR) (NotDetected) B. pertussis DNA (PCR) (NotDetected) B.parapertussis DNA PCR (NotDetected) C. pneumoniae DNA (PCR) (NotDetected) Coronavirus OC43 (PCR) (NotDetected) Coronavirus HKU1 (PCR) (NotDetected) Coronavirus 229E (PCR) (NotDetected) SARS-CoV-2 (PCR) (NotDetected) Coronavirus NL63 (PCR) (NotDetected) Human Metapneumovir PCR (NotDetected) Influenza Type A (PCR) (NotDetected) Influenza Type B (PCR) (NotDetected) M. pneumoniae (PCR) (NotDetected) Parainfluenza 1 (PCR) (NotDetected) Parainfluenza 2 (PCR) (NotDetected) Parainfluenza 3 (PCR) (NotDetected) Parainfluenza 4 (PCR) (NotDetected) RSV (PCR) (NotDetected) Entero/Rhino (PCR) (NotDetected) Imaging Data Attestation: I personally reviewed and interpreted this imaging study as follows: My Impression: Chest x-ray negative. Airway clear. No pneumothorax. No consolidation. No cardiomegaly or cephalization.. No free air under the diaphragm. No fractures of the skeletal structures. ECG Data Attestation: I personally reviewed and interpreted this ECG as follows: Rate (beats per minute): 97 Rhythm: + normal sinus ECG Intervals/blocks: + Normal QRS, + Normal MD and + Normal QT-c ECG ST segments: + Normal ST segments [facility] Narrative 1928: The patient was evaluated in room A4. A complete history and physical exam was performed Cardiac monitoring: An order was placed for continuous cardiac monitoring. The monitor shows a rate of 100 with sinus rhythm interpreted by me 2119: Vital signs stable. Patient no respiratory distress. Labs show white blood cell count 4.77. Hemoglobin 10.6. Coagulation studies within normal limits. VBG is within normal limits. Sodium 127. Total bilirubin 3.9. AST 55 ALT 34. Liver function tests are at baseline. Ammonia 121. Procalcitonin negative. Patient has had no seizure-like activity. No need for hypertonic saline at this time. Patient's hyponatremia will be treated with gentle hydration with normal saline and his elevated ammonia will be treated with lactulose. Patient will be admitted to the [facility] team. Dr. Rodriguez made aware of the patient and states he will evaluate them. Impression & Plan Acute hyponatremia, Acute hepatic encephalopathy Discharge Plan Visit Data Chief Complaint: Illness Stated Complaint: SOB, SYNCOPE, VOMITING ED Provider: Van Aiken Discharge Problem: Acute hyponatremia, Acute hepatic encephalopathy Patient Disposition: Admitted As Inpatient Forms Stand Alone Forms: My [facility] Prescriptions Prescriptions: No Action metformin 500 mg Tablet 500 mg PO BIDM Rx Instructions: been over a year since filled. Original dose 500 mg allopurinol 300 mg Tablet 300 mg PO QAM multivitamin Tablet 1 tab PO QAM Rx Instructions: otc unable to verify atorvastatin 20 mg tablet 20 mg PO QAM Rx Instructions: Last filled in September 2023. Original dose 20 mg ascorbic acid (vitamin C) [Vitamin C] 1,000 mg Tablet 1 g PO QAM Rx Instructions: otc unable to verify tamsulosin 0.4 mg capsule 0.4 mg PO DAILY Xifaxan 550 mg tablet 550 mg PO BID Lantus Solostar U-100 Insulin 10 unit subcut DAILY omeprazole 20 mg capsule,delayed release(DR/EC) 20 mg PO QAM spironolactone 25 mg tablet 100 mg PO QAM furosemide 20 mg tablet 40 mg PO QAM lactulose 20 gram/30 mL solution 45 g PO TID 30 Days Qty: 3000 1RF Rx Instructions: last filled in May 2023 Adjust dose up or down to maintain 3-4 loose BMs per day mupirocin 2 % ointment 1 applic EXT TID PRN (Reason: Wound Care) Rx Instructions: last filled jul 2023 Referrals Referrals: Krystian Palomo MD [Primary Care Provider] -
[2024-06-21] MEDS: OPTIRAY 320 125ml IV ONE (23:06)
--- NOTE | 2024-06-21 23:39 | History & Physical Report ---
Date of Service June 21, 2024 Assessment & Plan (1) Acute hyponatremia: Plan: Acute on chronic Secondary to food related GI upset Underlying NAFLD with cirrhosis SOB rule out PE moderate Hyperammonemia secondary to missed lactulose doses, patient mentating well hypertension, stable hyperlipidemia on statin Rx pulmonary hypertension hepatocellular CA, periodic IR embolization at [facility] DM2 insulin requiring, suboptimal control as of recent hemoglobin A1c of 8.4 last March 2024 chronic pancytopenia secondary to liver disease, hemoglobin at baseline Medical telemetry Recheck serum sodium after initial fluid bolus given at the ER. Hold home diuretic for now Hyponatremia workup Fluid restriction May benefit from Nephrology consultation CT chest PE study Facilitate home lactulose and rifaximin Basal bolus insulin adjusted for clear liquid diet for now ISS BG goal 1 10-1 40, carb count coverage DVT phylaxis. SCDs Re: Thrombocytopenia Full code Text document was generated using ybuy voice recognition software. It may contain grammatical or spelling errors. Kindly contact undersigned for clarification of any documentation item in question. History of Present Illness Chief Complaint: Nausea, vomiting, SOB Primary Care Provider: Krystian Palomo MD History obtained from patient and records. Medical history significant for moderate , hypertension, hyperlipidemia, pulmonary hypertension, NAFLD cirrhosis, hepatocellular CA, DM2 insulin requi ring, BPH, chronic hyponatremia, chronic pancytopenia (baseline hemoglobin 10- 11), gout, past tobacco abuse Recent confinement 3 weeks ago for hepatic encephalopathy due to medication noncompliance. Patient had stomach upset yesterday after eating some noodles. Nausea/emesis without abdominal pain/fluid retention. Intentionally skipped lactulose medications due to GI symptoms. Denies headache, chest pain, cough. Transient SOB symptoms. Medical History as above Surgical History : None Family History : DM, COPD, heart disease Personal/Social history : Past tobacco abuse, no EtOH intake, disabled Allergies Allergy/AdvReac Type Severity Reaction Status Date / Time aspirin Allergy Intermediate NOSE Verified 01/11/24 08:15 BLEEDS--IF TAKES REGULARLY Home Medications Medication Instructions Recorded Confirmed Type allopurinol 300 mg tablet 300 mg PO QAM 06/03/19 06/21/24 History metformin 500 mg tablet 500 mg PO BIDM 06/03/19 06/21/24 History multivitamin 1 tab PO QAM 06/03/19 06/21/24 History atorvastatin 20 mg tablet 20 mg PO QAM 04/21/21 06/21/24 History ascorbic acid (vitamin C) 1,000 mg 1 g PO QAM 08/27/23 06/21/24 History tablet (Vitamin C) tamsulosin 0.4 mg capsule 0.4 mg PO DAILY 10/04/23 06/21/24 History rifaximin 550 mg tablet (Xifaxan) 550 mg PO BID 01/02/24 06/21/24 History furosemide 20 mg tablet 40 mg PO QAM 02/27/24 06/21/24 History omeprazole 20 mg capsule,delayed 20 mg PO QAM 02/27/24 06/21/24 History release spironolactone 25 mg tablet 100 mg PO QAM 02/27/24 06/21/24 History lactulose 20 gram/30 mL oral 45 g (67.5 mL) PO TID Cirrhosis 30 02/29/24 06/21/24 Rx solution days #3,000 mL Lantus Solostar U-100 Insulin 10 unit subcut DAILY 05/26/24 06/21/24 History mupirocin 2 % topical ointment 1 applic EXT TID PRN Wound Care 06/21/24 06/21/24 History Past Med/Surg History Problem List (Updated 06/21/24 @ 22:45 by Van Aiken MD) Acute hepatic encephalopathy (Acute) Acute hyponatremia (Acute) Ureterolithiasis Medical non-compliance (Acute) Hyperammonemia (Acute) Acute hyperglycemia (Acute) Acute hyponatremia (Acute) Ascites (Acute) Urinary retention Cirrhosis (Acute) UTI (urinary tract infection) Sepsis Abdominal pain (Acute) Morbid obesity Hepatic encephalopathy Acute hepatic encephalopathy (Acute) Acute alteration in mental status (Acute) Pancytopenia (Acute) Encounter for screening colonoscopy Encounter for pre-operative examination Mid back pain Fall due to slipping on ice or snow Right rib fracture Ascites (Acute) Hepatocellular carcinoma possibly carcinogenic - pt unsure if it has been confirmed. 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 "if i get up to fast". S/P abdominal paracentesis Fracture of rib of right side 2013 Anaplasmosis 2020 Acute hepatic encephalopathy Cardiac murmur HX Hypertension hx - no current medications, patient reports having hypotension, no problems since stopping his blood pressure medications Right rib fracture hx ~2013/2014. Surgical History History of esophagogastroduodenoscopy (EGD) History of colonoscopy Family History Mother History of colonoscopy Brother Family history of diabetes mellitus Brother Family history of diabetes mellitus Grandmother (Paternal) Family history of diabetes mellitus Other No family history of adverse response to anesthesia Social History Smoking Status: Former smoker Tobacco Type: Cigarettes Second Hand Exposure: No; Do You Dip or Chew Tobacco: Yes; Hx Alcohol Use: No Hx Substance Use: No Preferred Language: Malian Communication Ability: Effective Usps Letter Carrier Required: No Beliefs That Will Affect Care: None marital status: Single Current Living Situation: Family Current Living Situation Comment: mom and daughter live with him Feels Safe at Home: Yes Assistive Devices: None Review of Systems Review of Systems: As per HPI, all other systems reviewed and negative Physical Exam Physical Exam: GENERAL: Comfortable, pleasant, obese, no respiratory distress SKIN: Pallor,, warm HEENT: Pale palpebral conjunctivae, no ptosis, dry buccal mucosa NECK : Supple, no tenderness CHEST : Decreased breath sounds, no tenderness HEART : RRR, systolic murmur ABDOMEN: Some distention, nontender EXTREMITIES : Minimal LE swelling without LE tenderness, no other conspicuous deformities noted NEUROLOGIC : Coherent, no facial asymmetry, no other gross focality Results & Data Results & Data Vital Signs (Past 12 Hours) Vital Signs Temp Pulse Pulse Resp BP BP Pulse Ox 06/21/24 23:23 83 16 117/59 L 100 06/21/24 23:19 81 06/21/24 21:03 108 H 26 H 100 06/21/24 21:00 118/66 06/21/24 21:00 118/66 06/21/24 20:57 89 17 99 06/21/24 20:30 129/69 06/21/24 20:30 129/69 06/21/24 20:30 129/69 06/21/24 20:30 90 17 100 06/21/24 20:18 92 H 16 100 08/23/24 20:00 126/67 06/21/24 19:48 92 H 19 100 06/21/24 19:33 92 H 22 100 06/21/24 19:30 128/84 06/21/24 19:30 128/84 06/21/24 19:30 128/84 06/21/24 19:30 128/84 06/21/24 19:15 108 H 22 100 06/21/24 19:11 36.6 C 95 H 22 123/59 L 98 06/21/24 19:04 97 H O2 Del Method 06/21/24 23:23 Room Air 06/21/24 23:19 06/21/24 21:03 06/21/24 21:00 06/21/24 21:00 06/21/24 20:57 06/21/24 20:30 06/21/24 20:30 06/21/24 20:30 06/21/24 20:30 06/21/24 20:18 06/21/24 20:00 06/21/24 19:48 06/21/24 19:33 06/21/24 19:30 06/21/24 19:30 06/21/24 19:30 06/21/24 19:30 06/21/24 19:15 06/21/24 19:11 Room Air 06/21/24 19:04 Laboratory Results Laboratory Results WBC 4.77 K/ul (4.8-10.8) L 06/21/24 19:05 RBC 2.91 M/uL (4.70-6.10) L 06/21/24 19:05 Hgb 10.6 g/dl (14.0-18.0) L 06/21/24 19:05 Hct 30.4 % (42.0-52.0) L 06/21/24 19:05 MCV 104.5 fL (80.0-100.0) H 06/21/24 19:05 MCH 36.4 pg (25.0-34.0) H 06/21/24 19:05 MCHC 34.9 g/dL (32.0-36.0) 06/21/24 19:05 RDW Std Deviation 56.9 fL (36.4-46.3) H 06/21/24 19:05 RDW Coeff of Polo 14.8 % (11.5-14.5) H 06/21/24 19:05 Plt Count 78 K/uL (130-400) L 06/21/24 19:05 MPV 11.7 fL (9.4-12.4) 06/21/24 19:05 Immature Gran % (Auto) 0.6 % 06/21/24 19:05 Neut % (Auto) 67.3 % 06/21/24 19:05 Lymph % (Auto) 11.1 % 06/21/24 19:05 [place] % (Auto) 16.4 % 06/21/24 19:05 Eos % (Auto) 2.7 % 06/21/24 19:05 Baso % (Auto) 1.9 % 06/21/24 19:05 Neut # (Auto) 3.21 K/uL (1.40-6.50) 06/21/24 19:05 Lymph # (Auto) 0.53 K/uL (1.20-3.40) L 06/21/24 19:05 [place] # (Auto) 0.78 K/uL (0.11-0.59) H 06/21/24 19:05 Eos # (Auto) 0.13 K/uL (0.00-0.50) 06/21/24 19:05 Baso # (Auto) 0.09 K/uL (0.00-0.20) 06/21/24 19:05 Immature Gran # (Auto) 0.03 K/uL (0.01-0.20) 06/21/24 19:05 PT 14.7 Seconds (9.0-12.0) H 06/21/24 19:05 INR 1.4 (0.9-1.1) H 06/21/24 19:05 APTT 30 Seconds (21-31) 06/21/24 19:05 PTT Ratio 1.1 06/21/24 19:05 VBG pH 7.37 (7.36-7.41) 06/21/24 19:41 VBG pCO2 38 mmHg (38-50) 06/21/24 19:41 VBG pO2 33 mmHg 06/21/24 19:41 VBG HCO3 22 mmol/L 06/21/24 19:41 VBG O2 Saturation < 60.0 % 06/21/24 19:41 VBG Base Excess -2.9 mEq/L 06/21/24 19:41 Sodium 127 mmol/L (136-145) L 06/21/24 19:05 Potassium 3.8 mmol/L (3.5-5.1) 06/21/24 19:05 Chloride 96 mmol/L (98-107) L 06/21/24 19:05 Carbon Dioxide 20 mmol/L (21-32) L 06/21/24 19:05 Anion Gap 11 (3-11) 06/21/24 19:05 BUN 13 mg/dl (6-23) 06/21/24 19:05 Creatinine 1.02 mg/dl (0.6-1.4) 06/21/24 19:05 Est Cr Clr Drug Dosing 97.9 ml/min 06/21/24 19:05 Est GFR ( Amer) 92.8 ml/min 06/21/24 19:05 Est GFR (Non-Af Amer) 80.1 ml/min 06/21/24 19:05 BUN/Creatinine Ratio 12.7 (10-20) 06/21/24 19:05 Glucose 292 mg/dl (70-99(Fasting)) H 06/21/24 19:05 Osmolality 284 mOsm/kg (280-300) 06/21/24 19:05 Calcium 8.8 mg/dl (8.6-10.3) 06/21/24 19:05 Magnesium 1.8 mg/dl (1.7-2.4) 06/21/24 19:05 Total Bilirubin 3.9 mg/dl (0.2-1.0) H 06/21/24 19:05 AST 55 U/L (13-39) H 06/21/24 19:05 ALT 34 U/L (7-52) 06/21/24 19:05 Alkaline Phosphatase 109 U/L (34-104) H 06/21/24 19:05 Ammonia 121.0 umol/L (18-72) H 06/21/24 20:37 Total Protein 7.2 gm/dl (6.0-8.3) 06/21/24 19:05 Albumin 2.9 gm/dl (3.4-5.0) L 06/21/24 19:05 Globulin 4.3 gm/dl (2.5-4.0) H 06/21/24 19:05 Albumin/Globulin Ratio 0.7 (0.9-2) L 06/21/24 19:05 Lipase 64 U/L (11-82) 06/21/24 19:05 Procalcitonin 0.07 ng/ml (0-0.5) 06/21/24 19:05 Salicylates < 3.0 mg/dl (3.0-30) L 06/21/24 19:05 Acetaminophen < 3 ug/ml (10-30) L 06/21/24 19:05 Ethyl Alcohol mg/dL 11.5 mg/dl (<10.0) H 06/21/24 19:41 Adenovirus (PCR) Not Detected (NotDetected) 06/21/24 19:35 B. pertussis DNA (PCR) Not Detected (NotDetected) 06/21/24 19:35 B.parapertussis DNA PCR Not Detected (NotDetected) 06/21/24 19:35 C. pneumoniae DNA (PCR) Not Detected (NotDetected) 06/21/24 19:35 Coronavirus OC43 (PCR) Not Detected (NotDetected) 06/21/24 19:35 Coronavirus HKU1 (PCR) Not Detected (NotDetected) 06/21/24 19:35 Coronavirus 229E (PCR) Not Detected (NotDetected) 06/21/24 19:35 SARS-CoV-2 (PCR) Not Detected (NotDetected) 06/21/24 19:35 Coronavirus NL63 (PCR) Not Detected (NotDetected) 06/21/24 19:35 Human Metapneumovir PCR Not Detected (NotDetected) 06/21/24 19:35 Influenza Type A (PCR) Not Detected (NotDetected) 06/21/24 19:35 Influenza Type B (PCR) Not Detected (NotDetected) 06/21/24 19:35 M. pneumoniae (PCR) Not Detected (NotDetected) 06/21/24 19:35 Parainfluenza 1 (PCR) Not Detected (NotDetected) 06/21/24 19:35 Parainfluenza 2 (PCR) Not Detected (NotDetected) 06/21/24 19:35 Parainfluenza 3 (PCR) Not Detected (NotDetected) 06/21/24 19:35 Parainfluenza 4 (PCR) Not Detected (NotDetected) 06/21/24 19:35 RSV (PCR) Not Detected (NotDetected) 06/21/24 19:35 Entero/Rhino (PCR) Not Detected (NotDetected) 06/21/24 19:35 Diagnostic Findings Chest x-ray as per my interpretation atelectasis, cardiomegaly EKG as per my interpretation : Rate 100, NSR, normal axis, no ischemia
[2024-06-21] MEDS ORDERED: GLUCAGON FOR INJ 1 MG VIAL SQ PRN (23:42)
[2024-06-21] MEDS ORDERED: oxyCODONE HCL IR 5 MG TAB (IMMEDIATE RELEASE) PO PRN (23:42)
[2024-06-21] MEDS ORDERED: CARBOHYDRATES FOR HYPOGLYCEMIA PO PRN (23:42)
[2024-06-21] MEDS ORDERED: GLUCOSE 40% GEL 15 GM TUBE PO PRN (23:42)
[2024-06-21] MEDS ORDERED: ACETAMINOPHEN 500 MG TAB PO PRN (23:42)
[2024-06-21] MEDS ORDERED: GLUCOSE 10 TAB/TUBE PO PRN (23:42)
[2024-06-21] MEDS ORDERED: DEXTROSE 50% 50 ML SYRINGE IV PRN (23:42)
--- OUTSIDE RECORDS SUMMARY | 2024-06-21 23:43 | External Medical Summary | Summary of Care ---
Author Name Unknown Organization [facility] Address [address] [place] [address] Phone [phone] Care Team Providers Care Exchange Floor Manager Name Role Phone Krystian Collier MD Primary Care Provide r Reason for Visit * Reason Comments eRx-Medication Refill Encounter Details Date Type Department Care Team (Late st Contact Info) Description 06/10/2024 Refill Family Medicine [address] [phone] Stanford Mays MD [address] [place] [address] [place] [id number] Urinary retention Allergies Active Allergy Reactions Criticality Noted Date Comments Aspirin 01/28/2022 Other reaction(s): bloody nose Salicylates 08/08/2001 nose bleeds documented as of this encounter (statuses as of 06/10/2024) Medications Medication Sig Dispensed Refills Start Date End Date Status Multivitamin Adult Oral Tablet daily . 1 Active Vitamin C 1000 MG Oral Tablet daily . 1 Active Lactulose 10 GM/15ML Oral Solution (Constulose)Indica tions:Hepatic encephalopathy (HCC) TAKE 45ML THREE TIMES DAILY,IN THE MORNING, AT NOON, AND BEDFORE BEDTIME 4050 mL 5 3 Active Atorvastatin Calcium 20 MG Oral Tablet (Lipitor)Indicatio ns:Hyperlipidemia with target LDL less than 100 Take 1 Tablet by mouth in the morning. 90 Tablet 1 3 Active Omeprazole 20 MG Oral Capsule Delayed Release (PriLOSEC)Indicati ons:GERD (gastroesophageal reflux disease) Take 1 Capsule by mouth in the morning. 1 hour before the first meal of the day. 90 Capsule 3 3 Active Albumin Human 25 % Intravenous [...] units albumin 100 mL 10 4 Active Dexcom G7 Fusing Machine Operator Device Use as directed to monitor blood sugars 1 Each 4 Active Dexcom G7 Sensor Use as directed to monitor blood sugars. Change every 10 days. 3 Each 3 4 Active Furosemide 40 MG Oral Tablet (Lasix) TAKE ONE TABLET BY MOUTH IN THE MORNING 30 Tablet 3 4 Active Insulin Glargine Solostar 100 UNIT/ML Subcutaneous Solution Pen-injector (Lantus SoloStar) Inject 10 Units under the skin daily. 15 mL 3 4 Active Pen [place] 32G X 4 MM Use as directed. Use to inject insulin once daily. 100 Each 3 4 Active Probiotic & Acidophilus Ex St Oral Capsule Take 1 Capsule by mouth in the morning and 1 Capsule at noon and 1 Capsule in the evening. Take with meals. Active Mupirocin 2 % External Ointment (Bactroban) Apply topically to affected area 3 times a day. 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 07/05/2023 Hepatic encephalopathy 03/28/2022 Overview: admitted [facility], ammonia 110 Aortic stenosis, moderate [...] as of this encounter (statuses as of 06/10/2024) Resolved Problems Problem Noted Date Diagnosed Date [...] as of this encounter (statuses as of 06/10/2024) Immunizations Name Administration Dates Next Due COVID-19 [...] encounter Miscellaneous Notes * Telephone Encounter - Zohra Ruvalcaba [facility] - 06/10/2024 8:28 PM EDTSigned Prescriptions: Disp Refills Tamsulosin HCl 0.4 MG Oral Capsule (Flomax)90 Cap*3 Sig: TAKE ONE CAPSULE BY MOUTH EVERY DAYAuthorizing Provider: Umu COLLIER User: ZOHRA RUVALCABA documented in this encounter Plan of Treatment Upcoming Encounters Date Type Department Care Team (Latest Contact Info) Description 06/11/2024 9:00 AM EDT Office Visit [facility]olog [facility] [address] [place] [address] Ren Pineda CRNP [address] [place] [address] 06/18/2024 8:30 AM EDT Appointment Interventional Radiology [facility] [address] [place] 1st Floor [address] [facility] [place] [phone] 06/24/2024 8:20 AM EDT Office Visit [address] [place] [phone] Krystian Collier MD [address] [place] [address] [place] [address] 07/03/2024 1:30 PM EDT Hospital Encounter ENDO [facility], Endoscopy Room [facility] [address] [place] [phone] Jayla Armstrong MD [address] [facility] [place] [address] 07/03/2024 1:30 PM EDT - 07/03/2024 2:00 PM EDT Surgery ENDO [facility], Endoscopy Room [facility] [address] [place] [phone] Jayla Armstrong MD [address] [place] [address] [place] [id number] ESOPHAGOGASTRODUODENOSCOPY (EGD), FLEXIBLE, TRANSORAL, DIAGNOSTIC 07/08/2024 11:45 AM EDT Imaging [facility] 2nd Floor Cardiology, [place] [address] [place] [phone] Gw, Excess Time Radiology [address] [place] [address] 07/12/2024 11:00 AM EDT Office Visit Pharmacy, [address] [place] [address] [place] [address] Scheduled Procedures Name Priority Associated Diagnoses Date/Ti [...] 12/06/2023 023, 11/03/2021, 04/29/2021, Additional history exists Diabetic Foot Exam 06/21/2024 06/21/2023, 0 07/06/2022, 04/29/2021, Additional history exists Influenza Vaccine (FLU shot) (#1) 2024 07/30/2023, 06/30/2022, 07/30/2021, Additional history exists Diabetic Eye Exam 09/20/2024 09/20/2023, , 03/16/2021, Additional history exists HbA1c 10/19/2024 04/19/2024, 03/0 05/2024, 09/18/2023, Additional history exists GFR 06/04/2025 06/04/2024, 08/0 12/2023, 05/30/2024, Additional history exists Lipid Panel 09/18/2028 09/18/2023, 08/2 12/2022, 03/09/2022, Additional history exists Colonoscopy 01/10/2029 01/11/2024, 080 06/2019, 05/21/2010 Colorectal Cancer Screening 01/10/2029 Hepatitis [...] this encounter Medical Devices Implanted Type Area Yarn Dumper Device Identifier Shelf Expiration Date Model / Serial / Lot Lipiodol Injection - [id number] Implanted:Qty: 1 on 08/02/2023 at [facility] [employer] 04/28/2026 [id number] Syr Pf 2ml Embospheres 100-300 - [id number] Implanted:Qty: 1 on 08/02/2023 at [facility] [employer] [id number] 02/26/2026 S220GH / / [id number] Syr Pf 2ml Embospheres 100-300 - [id number] Implanted:Qty: 1 on 04/11/2024 at [facility] [employer] [id number] 12/27/2026 S220GH / / [id number] Lipiodol Injection - [id number] Implanted:Qty: 1 on 04/11/2024 at [facility] [employer] [id number] / documented as of this encounter Visit Diagnoses Diagnosis Urinary retention Retention of urine, unspecified Rios's esophagus documented in this encounter Care Teams Exchange Floor Manager Relationship Specialty Start Date End Date Krystian Collier MD [address] [place] [address] [place] [phone] PCP - General Family Medicine 12/22/23 documented as of this encounter
--- OUTSIDE RECORDS SUMMARY | 2024-06-21 23:43 | External Medical Summary | Summary of Care ---
Author Name Unknown Organization [facility] Address [address] [facility] [address] Phone [phone] Care Team Providers Care It Architecture Consultant Name Role Phone Krystian Palomo MD Primary Care Provide r Reason for Visit * Reason Comments Dosage Adjustment In Person (Anticoag Cl inic) Diabetes Follow-Up Encounter Details Date Type Department Care Team (Late st Contact Info) Description 06/07/2024 11:00 AM EDT Office Visit Pharmacy, [address] [place] [address] [place] [address] Type 2 diabetes mellitus with hemoglobin A1c goal of less than 7.0% ([facility])* Allergies Active Allergy Reactions Criticality Noted Date Comments Aspirin 01/28/2022 Other reaction(s): bloody nose Salicylates 08/08/2001 nose bleeds documented as of this encounter (statuses as of 06/07/2024) Medications Medication Sig Dispensed Refills Start Date End Date Status Multivitamin Adult Oral Tablet daily . 10/12/2021 Active Vitamin C 1000 MG Oral Tablet daily . 10/12/2021 Active Lactulose 10 GM/15ML Oral Solution (Constulose)Indicati ons:Hepatic encephalopathy (HCC) TAKE 45ML THREE TIMES DAILY,IN THE MORNING, AT NOON, AND BEDFORE BEDTIME 4050 mL 5 11/07/2022 Active Atorvastatin Calcium 20 MG Oral Tablet [...] One daily 30 Capsule 5 10/24/2023 Active Albumin Human 25 % Intravenous Solution [...] units albumin 100 mL 10 01/24/2024 Active Dexcom G7 Surgical Appliance Fitter Device Use as directed to monitor blood [...] daily. 15 mL 3 04/19/2024 Active Pen [place] 32G X 4 MM Use as directed. Use to inject insulin once daily. 100 Each 3 04/19/2024 Active Probiotic & Acidophilus Ex St Oral Capsule Take 1 Capsule by mouth in the morning and 1 Capsule at noon and 1 Capsule in the evening. Take with meals. Active Mupirocin 2 % External Ointment (Bactroban) Apply topically to affected area 3 times a day. At hospital discharge 22 g 1 06/03/2024 Active documented as of this encounter (statuses as of 06/07/2024) Active Problems Problem Noted Date Diagnosed Date [...] as of this encounter (statuses as of 06/07/2024) Resolved Problems Problem Noted Date Diagnosed Date [...] as of this encounter (statuses as of 06/07/2024) Immunizations Name Administration Dates Next Due COVID-19 [...] this encounter Progress Notes * Crystal Lang, [facility] - 06/07/2024 10:53 AM EDT Medication Therapy Disease Management Clinic - Diabetes Management Progress Note Lloyd Spencer, identified by name and date of , is a 58 year old male being seen for diabetes management/education. Patient presents for return diabetic visit. DIABETES: Current diabetic medications: Metformin HCl 500mg BID Lantus 10 units daily eGFR 86 as of 02/08/24 Medication Injection Site: Abdomen Lifestyle: Diet: unchanged Glucose Review/SMBG: Not available, patient not testing Hypoglycemia: Does your blood sugar go below 70 mg/dL? Not available, patient not testing Hyperglycemia symptoms present: none Recent Labs Units 04/19/24 1324 01/05/24 0822 09/18/23 1141 HEMOGLOBIN A1C - [facility] % 8.4* 7.0* 5.9* Recent Labs Units 06/04/24 1049 06/01/24 0000 05/30/24 0000 ESTIMATED GLOMERULAR FILTRATION RATE - [facility] mL/min 86 -- -- EGFR-OUTSIDE LAB ML/MIN/1.73M2 -- 57.6 99.9 CREATININE - [facility] mg/dL 1.0 -- -- CREATININE-OUTSIDE LAB MG/DL -- 1.34 0.76 HYPERTENSION: Patient on ACEi/ARB: no, stopped during last hospital admission BP Readings from Last 3 Encounters: 06/04/24 120/64 04/11/24 112/57 03/15/24 99/58 Blood pressure at goal: yes HYPERLIPIDEMIA: Patient [...] - 2022- season) 2023 Albumin/Creatinine Ratio 12/06/2023 Diabetic Foot Exam 06/21/2024 ASSESSMENT & PLAN: ICD-10-CM 1. Type 2 diabetes mellitus with hemoglobin A1c goal of less than 7.0% (HCC) E11.9 Considerations: Hepatocellular carcinoma Recent admission for hepatic encephalopathy, A1c increased to 8.4% ([facility] 02/26 - 02/28) Dexcom G7 --> Pharmacy Ozempic hesitancy due to constipation risk/concern [employer] ([employer] brand) BG meter ACEi stopped during [facility] hospitalization (05/26/24 - 05/30/24) BG Readings - Blood sugars not available. Patient stopped utilizing Dexcom sensors due to cost. Agreeable to obtain through DME now that insurance info is available. [facility] order placed.Of note, patient not testing using BG meter. States he is out of strips from [employer]. Encouraged toobtain and resume testing until CGM sensors are obtained. Medications - Reviewed current regimen. Patient had recent hospitalization at [facility]. Per 05/31 hospital f/u call Metformin was stopped. However [facility] records reviewed, Metformin to be continued per discharge summary. Patient unsure if he is taking. States his brother does his pills. Instructed to go home and check, will contact clinic to follow up. Diet, Exercise, Lifestyle - No significant lifestyle changes since last visit. Patient is agreeable to SMBG daily with CGM (Dexcom G7) Patient aware to contact clinic if any hypoglycemia before next visit. MEDICATION CHANGES: no change Diabetic Medications: Metformin HCl 500mg BID Lantus 10 units daily eGFR 86 as of 06/04/24 HEALTH MAINTENANCE INTERVENTIONS: Deferred d/t time constraints FOLLOW UP: Return to clinic in 5 weeks 07/12/2024 Crystal Lang [facility] Clinical Pharmacist - Electronic Console Display Operator Medication Therapy Management Clinic 06/07/2024, 10:53 AM documented in this encounter Plan of Treatment Upcoming Encounters Date Type Department Care Team (Latest Contact Info) Description 06/11/2024 9:00 AM EDT [facility] [address] [place] [address] Ren Pineda CRNP [address] [place] [address] 06/18/2024 8:30 AM EDT Appointment Interventional Radiology [facility], [facility] 1st Floor [address] [facility] [place] [address] 06/24/2024 8:20 AM EDT Office Visit Family Medicine [address] [place] [phone] Krystian Palomo MD [address] [place] [address] [place] [address] 07/03/2024 1:30 PM EDT Hospital Encounter ENDO OSSC, Endoscopy Room [facility] [address] [facility] [place] [phone] Jayla Armstrong MD [address] [place] [address] 07/03/2024 1:30 PM EDT - 07/03/2024 2:00 PM EDT Surgery ENDO O[facility], Endoscopy Room [facility] [address] [place] [phone] Jayla Armstrong MD [address] [place] [address] ESOPHAGOGASTRODUODENOSCOPY (EGD), FLEXIBLE, TRANSORAL, DIAGNOSTIC 07/08/2024 11:45 AM EDT Imaging [facility] 2nd Floor Cardiology, [place] [address] [place] [address] Gw, Excess Time Radiology [address] [place] [address] 07/12/2024 11:00 AM EDT Office Visit Pharmacy, [address] [place] [address] [place] [address] Scheduled Procedures Name Priority Associated Diagnoses Date/Ti [...] this encounter Medical Devices Implanted Type Area Split And Drum Room Supervisor Device Identifier Shelf Expiration Date Model / Serial / Lot Lipiodol Injection - [id number] Implanted:Qty: 1 on 08/02/2023 at [facility] [employer] 04/28/2026 [id number] 1 [id number] Syr Pf 2ml Embospheres 100-300 - [id number] Implanted:Qty: 1 on 08/02/2023 at [facility] [employer] [id number] 02/26/2026 S220GH / / [id number] Syr Pf 2ml Embospheres 100-300 - [id number] Implanted:Qty: 1 on 04/11/2024 at [facility] [employer] [id number] 12/27/2026 S220GH / / [id number] Lipiodol Injection - [id number] Implanted:Qty: 1 on 04/11/2024 at [facility] [place] [phone] - documented as of this encounter Visit Diagnoses Diagnosis Type 2 diabetes mellitus with hemoglobin A1c goal of less than 7.0% (HCC)- Primary Rios's esophagus documented in this encounter Care Teams It Architecture Consultant Relationship Specialty Start Date End Date Krystian Palomo MD [address] [place] [address] [place] [address] PCP - General Family Medicine 12/22/23 documented as of this encounter
--- OUTSIDE RECORDS SUMMARY | 2024-06-21 23:43 | External Medical Summary | Summary of Care ---
Author Name Unknown Organization [facility] Address [address] [facility] [address] Phone [phone] Care Team Providers Care Flamer Sealer Name Role Phone Krystian Palomo MD Primary Care Provide r Reason for Visit * Reason Comments Dosage Adjustment In Person (Anticoag Cl inic) Diabetes Follow-Up Encounter Details Date Type Department Care Team (Late st Contact Info) Description 06/07/2024 11:00 AM EDT Office Visit Pharmacy, [address] [place] [address] [place] [address] Type 2 diabetes mellitus with hemoglobin A1c goal of less than 7.0% ([facility])* Allergies Active Allergy Reactions Criticality Noted Date [...] 100 mL 10 01/24/2024 Active Dexcom G7 Teacher Early Childhood Development Device Use as directed to monitor blood [...] daily. 15 mL 3 04/19/2024 Active Pen [place] 32G X 4 MM Use as directed. [...] 07/05/2023 Hepatic encephalopathy 03/28/2022 Overview: admitted [facility], ammonia 110 Aortic stenosis, moderate [...] this encounter Progress Notes * Crystal Lang, [facility] - 06/07/2024 10:53 AM EDT Medication Therapy [...] for hepatic encephalopathy, A1c increased to 8.4% ([facility] 02/26 - 02/28) Dexcom G7 --> Pharmacy Ozempic hesitancy due to constipation risk/concern [employer] ([employer]) BG meter ACEi stopped during [facility] hospitalization (05/26/24 - 05/30/24) BG Readings - [...] current regimen. Patient had recent hospitalization at [facility]. Per 05/31 hospital f/u call Metformin was stopped. However [facility] records reviewed, Metformin to be continued per [...] clinic in 5 weeks 07/12/2024 Crystal Lang [facility] Clinical Pharmacist - Chemical Equipment Sales Engineer Medication Therapy Management Clinic 06/07/2024, 10:53 AM documented in this encounter Plan of Treatment Upcoming Encounters Date Type Department Care Team (Latest Contact Info) Description 06/11/2024 9:00 AM EDT [facility] [address] [place] [address] Ren Pineda CRNP [address] [place] [address] 06/18/2024 8:30 AM EDT Appointment Interventional Radiology [facility], [facility] 1st Floor [address] [facility] [place] [address] 06/24/2024 8:20 AM EDT Office Visit Family Medicine [address] [place] [phone] Krystian Palomo MD [address] [place] [address] [place] [address] 07/03/2024 1:30 PM EDT Hospital Encounter ENDO OSSC, Endoscopy Room [facility] 132 [facility] [place] [phone] Jayla Armstrogn MD [address] [place] [address] 07/03/2024 1:30 PM EDT - 07/03/2024 2:00 PM EDT Surgery ENDO O[facility], Endoscopy Room [facility] [address] [place] [phone] Jayla Armstrong MD [address] [place] [address] ESOPHAGOGASTRODUODENOSCOPY (EGD), FLEXIBLE, TRANSORAL, DIAGNOSTIC 07/08/2024 11:45 AM EDT Imaging [facility] 2nd Floor Cardiology, [place] [address] [place] [phone] Gw, Excess Time Radiology [address] [place] [address] 07/12/2024 11:00 AM EDT Office Visit Pharmacy, [address] [place] [address] [place] [address] Scheduled Procedures Name Priority Associated Diagnoses Date/Ti [...] this encounter Medical Devices Implanted Type Area It Administrative Assistant Device Identifier Shelf Expiration Date Model / Serial / Lot Lipiodol Injection - [id number] Implanted:Qty: 1 on 08/02/2023 at [facility] [employer] 04/28/2026 [address] 1 [id number] Syr Pf 2ml Embospheres 100-300 - [id number] Implanted:Qty: 1 on 08/02/2023 at [facility] [employer] [id number] 02/26/2026 S220GH / / [id number] Syr Pf 2ml Embospheres 100-300 - [id number] Implanted:Qty: 1 on 04/11/2024 at [facility] [employer] [id number] 12/27/2026 S220GH / / [id number] Lipiodol Injection - [id number] Implanted:Qty: 1 on 04/11/2024 at [facility] [place] [phone] - documented as of this encounter Visit Diagnoses Diagnosis Type 2 diabetes mellitus with hemoglobin A1c goal of less than 7.0% (HCC)- Primary Rios's esophagus documented in this encounter Care Teams Flamer Sealer Relationship Specialty Start Date End Date Krystian Palomo MD [address] [place] [address] [place] [address] PCP - General Family Medicine 12/22/23 documented as of this encounter
--- OUTSIDE RECORDS SUMMARY | 2024-06-21 23:43 | External Medical Summary | Summary of Care ---
Author Name Unknown Organization [facility] Address [address] [facility] [place] [address] Phone [phone] Care Team Providers Care Nib Inspector Name Role Phone Krystian Palomo MD Primary Care Provide r Reason for Visit * Reason Comments Follow Up Follow up GONZALES. Pt r eports that he just got out of [employer] last Monday for elevated labs Encounter Details Date Type Department Care Team (Latest Contact Info) Description 06/11/2024 9:00 AM EDT Office Visit Gastroenterology, [facility] [address] [place] [address] Ren Pineda CRNP [address] [place] [address] 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)* Allergies Active Allergy Reactions Criticality Noted Date Comments Aspirin 01/28/2022 Other reaction(s): bloody nose Salicylates 08/08/2001 nose bleeds documented as of this encounter (statuses as of 06/11/2024) Medications Medication Sig Dispensed Refills Start Date [...] the day. 90 Capsule 3 07/17/2023 Active Albumin Human 25 % Intravenous Solution [...] 100 mL 10 01/24/2024 Active Dexcom G7 Supply Tech Device Use as directed to monitor blood [...] daily. 15 mL 3 04/19/2024 Active Pen [place] 32G X 4 MM Use as directed. Use to inject insulin once daily. 100 Each 04/19/2024 Active Probiotic & Acidophilus Ex St Oral Capsule Take 1 Capsule by mouth in the morning and 1 Capsule at noon and 1 Capsule in the evening. Take with meals. Active Mupirocin 2 % External Ointment (Bactroban) Apply topically to affected area 3 times a day. At hospital discharge 22 g 1 06/03/2024 Active Tamsulosin HCl 0.4 MG Oral Capsule (Flomax)Indications: Urinary retention TAKE ONE CAPSULE BY MOUTH EVERY DAY 90 Capsule 3 06/10/2024 Active documented as of this encounter (statuses as of 06/11/2024) Active Problems Problem Noted Date Diagnosed Date BPH without obstruction/lower urinary tract symp toms 12/22/2023 BMI 36.0-36.9,adult 10/24/2023 Overview: 266 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 07/05/2023 Hepatic encephalopathy 03/28/2022 Overview: admitted [facility], ammonia 110 Aortic stenosis, moderate 01/21/2022 Thrombocytopenia [...] as of this encounter (statuses as of 06/11/2024) Resolved Problems Problem Noted Date Diagnosed Date [...] as of this encounter (statuses as of 06/11/2024) Immunizations Name Administration Dates Next Due COVID-19 [...] Sign Reading Time Taken Comments Blood Pressure 109/60 06/11/2024 8:51 AM EDT Pulse 66 06/11/2024 8:51 AM EDT Temperature 36.5 C (97.7 F) 06/11/2024 8:51 AM ED T Respiratory Rate - - Oxygen Saturation - - Inhaled Oxygen Concentration - - Weight 106.1 kg (233 lb 14.4 oz) 06/11/2024 8:51 AM EDT Height - - Body Mass Index 32.39 06/04/2024 10:14 AM EDT documented in this encounter Progress Notes * Ren Pineda CRNP - 06/11/2024 9:00 AM EDT CC: Cirrhosis w Hepatic Encephalopathy HPI: Recall that Mr. Lloyd Spencer is a 58 year old male pt of Stanford Mays MD with a hx of , obesity, DM-2, gout, hyperlipidemia, anaplasmosis (2019). He is a [employer] [employer] [employer] employee currently on disability for cirrhosis. Dx'ed in April 2021 when he presented w confusion. Began w ascites around Sep 2023, now managed w diuretics and paracenteses. (Non recently), Seeing liver transplant, not yet listed.Needs card stress test. Tells me unable to check BS at home due to insurance not covering costs. Most recent HbA1C in March was 8.4. Recent hospitalization for hep enceph 05/26-05/30 Xifaxin 550mg BID, Lactulose 45 gm po TID. (instructed then ED visit for kidney stones 06/01. Beta laura held at discharge. [place] in 56 seconds. Able to tell me the president, correctional food service supervisor's names. Unable to give me a correct date, or day of the week but able to tell me May,. Complications: Liver lesions - post bland embolization CTAP w IV at [facility] 03/06/25: [facility] 1. There are scattered gas fluid levels [...] paracentesis 01/24/24 removal of 5.5L U/S at [facility] [employer] [facility] 01/3024 w/o significant ascites to undergo paracentesis [facility] LIRADs5 liver lesion underwent bland embolization in Aug 2023, following w IR, has appt in [place] 06/18/24 Hepatic Encephalopathy: Hospitalized at [facility] [employer] [facility] on 02/27 for hepatic encephalopathy Rifaximin 550mg [...] otherwise normal MELD 25 from labs at [facility] 2 wks ago: Na 127, Cr1.26, INR 1.5, T Bili 3.2 EXAM: BP 109/60 | Pulse 66 | Temp 36.5 C (97.7 F) | Wt 106.1 kg (233 lb 14.4 oz) | BMI 32.39 kg/m |BSA 2.31 m GENERAL: 58 year old male well developed and well nourished in no acute distress, Affect appropriate. Walking independently w the aid of a cane. SKIN: no rashes, ulcers, or spider angiomata [...] skin discoloration, no clubbing, no cyanosis NEURO: Slow word finding; no asterixis, no lateralizing findings. IMPRESSION/RECOMMENDATIONS: 58 year old male with 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) (Primary) - ALPHA-FETOPROTEIN TUMOR MARKER; Future; Expected date: 07/02/2024 - CBC WITH WBC DIFFERENTIAL; Future; Expected date: 07/02/2024 - COMPREHENSIVE METABOLIC PANEL; Future; Expected date: 07/02/2024 - PT INR; Future; Expected date: 07/02/2024 Increase lactulose to 60ml TID, continue dulcolax 2/day. Goal 3 BMs/day. Has IR appt on 06/18 and EGD appt on 07/03/24. To ED if confusion/lethargy, fluid accumulation on abd/legs, blood in BMs. Continue to f/u w liver transplant, IR. Recheck in GI in September. I spent a total of 30 minutes [...] documented in this encounter Nursing Notes * Ana Root LPN - 06/11/2024 8:51 AM EDT Chief Complaint Patient presents with Follow Up Follow up GONZALES. Pt reports that he just got out of [facility] last Monday for elevated labs documented in this encounter Plan of Treatment Upcoming Encounters Date Type Department Care Team (Latest Contact Info) Description 06/18/2024 8:30 AM EDT Appointment [place] [facility] [place] [facility] 1st Floor [address] [facility] [place] [address] 06/24/2024 8:20 AM EDT Office Visit Family [address] [place] [phone] Krystian Palomo MD [address] [place] [address] [place] [address] 07/03/2024 1:30 PM EDT Hospital Encounter ENDO OSSC, Endoscopy Room [facility] [address] [facility] [place] [phone] Jayla Armstrong MD [address] [place] [address] [place] [address] 07/03/2024 1:30 PM EDT - 07/03/2024 2:00 PM EDT Surgery ENDO OSSC, Endoscopy Room [facility] [address] [place] [phone] Jayla Armstrong MD [address] [place] [address] ESOPHAGOGASTRODUODENOSCOPY (EGD), FLEXIBLE, TRANSORAL, DIAGNOSTIC 07/08/2024 11:45 AM EDT Imaging [facility] 2nd Floor Cardiology, [place] [address] [place] [phone] Gw, Excess Time Radiology [address] [place] [address] 07/12/2024 11:00 AM EDT Office Visit Pharmacy, [address] [place] [address] [place] [address] 10/18/2024 10:30 AM EST Office Visit Gastroenterolog y, [facility] [address] [place] [address] Ren Pineda CRNP [address] [place] [address] Scheduled Orders Name Type Priority Associated Diagnoses Orde r Schedule ALPHA-FETOPROTEIN TUMOR MARKER Lab Routine 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) Expected: 07/02/2024, Expires: 06/11/2025 CBC WITH WBC DIFFERENTIAL Lab Routine 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) Expected: 07/02/2024, Expires: 06/11/2025 COMPREHENSIVE METABOLIC PANEL Lab Routine 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) Expected: 07/02/2024, Expires: 06/11/2025 PT INR Lab Routine 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) Expected: 07/02/2024, Expires: 06/11/2025 Scheduled Procedures Name Priority Associated Diagnoses Date/Ti [...] this encounter Medical Devices Implanted Type Area Pulp And Paper Tester Device Identifier Shelf Expiration Date Model / Serial / Lot Lipiodol Injection - [id number] Implanted:Qty: 1 on 08/02/2023 at [facility] [employer] 04/28/2026 [id number] 1 -2 [id number] Syr Pf 2ml Embospheres 100-300 - [id number] Implanted:Qty: 1 on 08/02/2023 at [facility] [employer] [id number] 02/26/2026 S220GH / / [id number] Syr Pf 2ml Embospheres 100-300 - [id number] Implanted:Qty: 1 on 04/11/2024 at [facility] [employer] [id number] 12/27/2026 S220GH / / [id number] Lipiodol Injection - [id number] Implanted:Qty: 1 on 04/11/2024 at [facility] [employer] [id number] 1 -2 / / documented as of this encounter Visit Diagnoses Diagnosis 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)- Primary Rios's esophagus documented in this encounter Care Teams Nib Inspector Relationship Specialty Start Date End Date Krystian Palomo MD [address] [place] [address] [place] [address] PCP - General Family Medicine 12/22/23 documented as of this encounter"
--- OUTSIDE RECORDS SUMMARY | 2024-06-21 23:43 | External Medical Summary | Summary of Care ---
Author Name Unknown Organization [facility] Address [address] [place] [address] Phone [phone] Care Team Providers Care Information Technology Associate Name Role Phone Krystian Palomo MD Primary Care Provide r Encounter Details Date Type Department Care Team (Late st Contact Info) Description 06/13/2024 Orders Only Interventional Radiology [facility], [facility] 1st Floor [address] [place] [address] Delmy Ruth, RN Encounter for general adult medical examination w/o abnormal findings* Allergies Active Allergy Reactions Criticality Noted Date Comments Aspirin 01/28/2022 Other reaction(s): bloody nose Salicylates 08/08/2001 nose bleeds documented as of this encounter (statuses as of 06/13/2024) Medications Medication Sig Dispensed Refills Start Date [...] 100 mL 10 01/24/2024 Active Dexcom G7 Supervisor Specialty Plant Device Use as directed to monitor blood [...] daily. 15 mL 3 04/19/2024 Active Pen [place] 32G X 4 MM Use as directed. 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 07/05/2023 Hepatic encephalopathy 03/28/2022 Overview: admitted [facility], ammonia 110 Aortic stenosis, moderate 01/21/2022 [...] as of this encounter (statuses as of 06/13/2024) Resolved Problems Problem Noted Date Diagnosed Date [...] as of this encounter (statuses as of 06/13/2024) Immunizations Name Administration Dates Next Due COVID-19 [...] Contact Info) Description 06/18/2024 8:30 AM EDT Hospital Encounter Interventional Radiology [facility], [facility] 1st Floor [address] [place] [address] 06/24/2024 8:20 AM EDT Office Visit Family Medicine [address] [place] [phone] Krystian Palomo MD [address] [place] [address] [place] [address] 07/03/2024 1:30 PM EDT Hospital Encounter ENDO OSS, Endoscopy Room [facility] [address] [place] [phone] Jayla Armstrong MD [address] [facility] [place] [address] 07/03/2024 1:30 PM EDT - 07/03/2024 2:00 PM EDT Surgery ENDO OSS, Endoscopy Room [facility] 132 [facility] [place] [phone] Jayla Armstrong MD [address] [place] [address] ESOPHAGOGASTRODUODENOSCOPY (EGD), FLEXIBLE, TRANSORAL, DIAGNOSTIC 07/08/2024 11:45 AM EDT Imaging [facility] 2nd Floor Cardiology, [place] [address] [place] [phone] Gw, Excess Time Radiology [address] [place] [address] 07/12/2024 11:00 AM EDT Office Visit Pharmacy, [address] [place] [address] [place] [address] 10/18/2024 10:30 AM EST Office Visit Gastroenterology , [facility] [address] [place] [address] Ren Pineda CRNP [address] [place] [address] Scheduled Orders Name Type Priority Associated Diagnoses Orde r Schedule CBC Lab STAT Encounter for general adult medical examination w/o abnormal findings Expected: 06/13/2024, Expires: 07/14/2024 COMPREHENSIVE METABOLIC PANEL Lab STAT Encounter for general adult medical examination w/o abnormal findings Expected: 06/13/2024, Expires: 08/13/2024 PT INR Lab STAT Encounter for general adult medical examination w/o abnormal findings Expected: 06/13/2024, Expires: 08/13/2024 BILIRUBIN, DIRECT Lab STAT Encounter for general adult medical examination w/o abnormal findings Expected: 06/13/2024, Expires: 08/13/2024 Scheduled Procedures Name Priority Associated Diagnoses Date/Ti mi ESOPHAGOGASTRODUODENOSCOPY ( EGD), FLEXIBLE, TRANSORAL, DIAGNOSTIC Rios's [...] this encounter Medical Devices Implanted Type Area Statistical Methods Professor Device Identifier Shelf Expiration Date Model / Serial / Lot Lipiodol Injection - [id number] Implanted:Qty: 1 on 08/02/2023 at [facility] [employer] 04/28/2026 82693-970 1 -2 [id number] Syr Pf 2ml Embospheres 100-300 - [id number] Implanted:Qty: 1 on 08/02/2023 at [facility] [employer] [id number] 02/26/2026 S220GH / / [id number] Syr Pf 2ml Embospheres 100-300 - [id number] Implanted:Qty: 1 on 04/11/2024 at [facility] [employer] [id number] 12/27/2026 S220GH / / [id number] Lipiodol Injection - [id number] Implanted:Qty: 1 on 04/11/2024 at [facility] [email or web address] 64587-854 1 -2 / / documented as of this encounter Visit Diagnoses Diagnosis Encounter for general adult medical examination w/o abnormal findings- Primary Unspecified general medical examination Rios's esophagus documented in this encounter Care Teams Information Technology Associate Relationship Specialty Start Date End Date Krystian Palomo MD [address] [place] [address] [place] [address] PCP - General Family Medicine 12/22/23 documented as of this encounter
--- OUTSIDE RECORDS SUMMARY | 2024-06-21 23:43 | External Medical Summary ---
Author Name Unknown Address Unknown Organization K01:[facility] - [address] [facility] [address] Laboratory Report Ordering Provider Test Date Status YSABEL FERRERA 06/18/2024 07:20:25 Final Observation Date Value Abnormality Reference (Units ) Status WBC, Total 06/18/2024 07:20:25 4.98 4.00-10.80 (K/uL) Final RBC 06/18/2024 07:20:25 3.05 4.50-5.25 (M/uL) Final Hemoglobin 06/18/2024 07:20:25 11.7 Below low normal 14.0-16.8 (g/dL) Final HCT 06/18/2024 07:20:25 34.1 Below low normal 40.0-48.4 (%) Final MCV 06/18/2024 07:20:25 111.8 82.0-99.5 (fL) Final MCH 06/18/2024 07:20:25 38.4 27.0-34.0 (pg) Final MCHC 06/18/2024 07:20:25 34.3 32.0-36.0 (g/dL) Final RDW 06/18/2024 07:20:25 15.7 11.5-15.5 (%) Final Platelets 06/18/2024 07:20:25 91 Below low normal 140-400 (K/uL) Final MPV 06/18/2024 07:20:25 11.8 6.6-11.1 (fL) Final Nucleated erythrocytes/100 leukocytes [Ratio] in Blood by Automated count 06/18/2024 07:20:25 0 <=0 (/100 WBCs) Final Performing Location [facility] - [address] [place] [address]
--- OUTSIDE RECORDS SUMMARY | 2024-06-21 23:43 | External Medical Summary | Summary of Care ---
Author Name Unknown Organization [facility] Address [address] [place] [address] Phone [phone] Care Team Providers Care Circular Knife Cutter Machine Name Role Phone Krystian Palomo MD Primary Care Provide r Reason for Visit * Reason Comments Outpatient Testing Encounter Details Date Type Department Care Team (Late st Contact Info) Description 06/18/2024 7:00 AM EDT Laboratory Outpatient Laboratory, [place] [address] [place] [address] [place], Lab B1a [address] [place] [address] Encounter for general adult medical examination w/o abnormal findings Allergies Active Allergy Reactions Criticality Noted Date Comments Aspirin 01/28/2022 Other reaction(s): bloody nose Salicylates 08/08/2001 nose bleeds documented as of this encounter (statuses as of 06/18/2024) Medications Medication Sig Dispensed Refills Start Date End Date Status Multivitamin Adult Oral Tablet daily . 10/12/2021 Suspended Vitamin C 1000 MG Oral Tablet daily . 10/12/2021 Suspended Lactulose 10 GM/15ML Oral Solution (Constulose)Indicat ions:Hepatic encephalopathy (HCC) TAKE 45ML THREE TIMES DAILY,IN THE MORNING, AT NOON, AND BEDFORE BEDTIME 4050 mL 5 11/07/2022 Suspended Additional Information Atorvastatin Calcium 20 MG Oral Tablet (Lipitor)Indication s:Hyperlipidemia with target LDL less than 100 Take 1 Tablet by mouth in the morning. 90 Tablet 1 07/11/2023 Suspended Additional Information Omeprazole 20 MG Oral Capsule Delayed Release (PriLOSEC)Indicatio ns:GERD (gastroesophageal reflux disease) Take 1 Capsule by mouth in the morning. 1 hour before the first meal of the day. 90 Capsule 3 07/17/2023 Suspended Additional Information Albumin Human 25 % Intravenous Solution Give 50Gms after paracentesis (if more than 5L are removed). May run at 100/hr. 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 30 Tablet 5 01/23/2024 Suspended Additional Information Albuminex 25 % Intravenous Solution (Albumin Human-kjda)Indicati ons:Cirrhosis of liver with ascites, unspecified hepatic cirrhosis [...] 3 units albumin 100 mL 10 01/24/2024 Suspended Additional Information Dexcom G7 Lead Maintenance Technician Device Use as directed to monitor blood sugars 1 Each 03/06/2024 Suspended Additional Information Dexcom G7 Sensor Use as directed to monitor blood sugars. Change every 10 days. 3 Each 3 03/06/2024 Suspended Additional Information Furosemide 40 MG Oral Tablet (Lasix) TAKE ONE TABLET BY MOUTH IN THE MORNING 30 Tablet 3 04/03/2024 Suspended Additional Information Insulin Glargine Solostar 100 UNIT/ML Subcutaneous Solution Pen-injector (Lantus SoloStar) Inject 10 Units under the skin daily. 15 mL 3 04/19/2024 Suspended Additional Information Pen Alexander 32G X 4 MM Use as directed. Use to inject insulin once daily. 100 Each 3 04/19/2024 Suspended Additional Information Probiotic & Acidophilus Ex St Oral Capsule Take 1 Capsule by mouth in the morning and 1 Capsule at noon and 1 Capsule in the evening. Take with meals. Suspended Mupirocin 2 % External Ointment (Bactroban) Apply topically to affected area 3 times a day. 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 07/05/2023 Hepatic encephalopathy 03/28/2022 Overview: admitted [facility], ammonia 110 Aortic stenosis, moderate 01/21/2022 Thrombocytopenia [...] as of this encounter (statuses as of 06/18/2024) Resolved Problems Problem Noted Date Diagnosed Date [...] as of this encounter (statuses as of 06/18/2024) Immunizations Name Administration Dates Next Due COVID-19 [...] Care Team (Latest Contact Info) Description 06/18/2024 7:24 AM EDT - Present Hospital Encounter Radiology Waiting Room [facility] 1st Floor [address] [place] [address] Macho Monroe MD [address] [place] [address] Arrived 07/03/2024 1:30 PM EDT Hospital Encounter ENDO OSSC, Endoscopy Room [facility] [address] [place] [address] Jayla Armstrong MD [address] [place] [address] 07/03/2024 1:30 PM EDT - 07/03/2024 2:00 PM EDT Surgery ENDO OSSC, Endoscopy Room [facility] [address] [place] [address] Jayla Armstrong MD [address] [place] [address] ESOPHAGOGASTRODUODENOSCOPY (EGD), FLEXIBLE, TRANSORAL, DIAGNOSTIC 07/08/2024 11:45 AM EDT Imaging [facility] 2nd Floor Cardiology, [place] [facility] [place] [phone] Gw, Excess Time Radiology [facility] [place] [address] 07/12/2024 11:00 AM EDT Office Visit Pharmacy, [address] [place] [address] [place] [address] 10/18/2024 10:30 AM EST Office Visit Gastroenterolog y, Health [facility] 132 [facility] [place] [address] Ren Pineda CRNP 132 [facility] [place] [address] Pending Results Name Type Priority Associated Diagnoses Date /Time CBC Lab STAT Encounter for general adult medical examination w/o abnormal findings 06/18/2024 7:20 AM EDT COMPREHENSIVE METABOLIC PANEL Lab STAT Encounter for general adult medical examination w/o abnormal findings 06/18/2024 7:20 AM EDT PT INR Lab STAT Encounter for general adult medical examination w/o abnormal findings 06/18/2024 7:20 AM EDT BILIRUBIN, DIRECT Lab STAT Encounter for general adult medical examination w/o abnormal findings 06/18/2024 7:20 AM EDT Scheduled Procedures Name Priority Associated [...] this encounter Medical Devices Implanted Type Area Fur Matcher Device Identifier Shelf Expiration Date Model / Serial / Lot Lipiodol Injection - [id number] Implanted:Qty: 1 on 08/02/2023 at [facility] [employer] 04/28/2026 [id number] 1 -2 \[id number] Syr Pf 2ml Embospheres 100-300 - [id number] Implanted:Qty: 1 on 08/02/2023 at [facility] [employer] [id number] 02/26/2026 S220GH / / [id number] Syr Pf 2ml Embospheres 100-300 - [id number] Implanted:Qty: 1 on 04/11/2024 at [facility] [employer] [id number] 12/27/2026 S220GH / / [id number] Lipiodol Injection - [id number] Implanted:Qty: 1 on 04/11/2024 at [facility] [employer] 04085-156 -2 documented as of this encounter Visit Diagnoses Diagnosis Hepatocellular carcinoma (HCC) Malignant neoplasm of liver, primary Encounter for general adult medical examination w/o abnormal findings Unspecified general medical examination Rios's esophagus documented in this encounter Care Teams Circular Knife Cutter Machine Relationship Specialty Start Date End Date Krystian Palomo MD [address] [place] [address] [place] [id number] PCP - General Family Medicine 12/22/23 documented as of this encounter
--- OUTSIDE RECORDS SUMMARY | 2024-06-21 23:43 | External Medical Summary | Summary of Care ---
Author Name Unknown Organization [facility] Address [address] [facility] [place] [address] Phone [phone] Care Team Providers Care Fitting Room Maintenance Mechanic Name Role Phone Krystian Palomo MD Primary Care Provide r Reason for Visit * Reason Onset Date Comments Medical Records Request 06/10/2024 KELSIE CASTELLANOS Encounter Details Date Type Department Care Team (Late st Contact Info) Description 06/10/2024 Telephone Family Medicine [address] [address] Krystian Palomo MD [address] [place] [address] [place] [address] Medical Records Request (KELSIE MCCULLOUGH... Allergies Active Allergy Reactions Criticality Noted Date [...] 100 mL 10 01/24/2024 Active Dexcom G7 Sex Crimes Detective Device Use as directed to monitor blood [...] daily. 15 mL 3 04/19/2024 Active Pen [place] 32G X 4 MM Use as directed. [...] encounter Miscellaneous Notes * Telephone Encounter - [place] Doran OSA - 06/10/2024 11:59 AM EDT Recd request for records 06/10/2024 from [employer]. Auth was sent to HIM [id number] on 06/10/2024. To check status of records,please call HIM directly at [phone]. documented in this encounter Plan of Treatment Upcoming Encounters Date Type Department Care Team (Latest Contact Info) Description 06/11/2024 9:00 AM EDT Office Visit Gastroenterolog y, [facility] [address] [place] [address] Ren Pineda CRNP 132 [place] [address] 06/18/2024 8:30 AM EDT Appointment Interventional Radiology [facility], [address] 1st Floor [address] [facility] [place] [address] 06/24/2024 8:20 AM EDT Office Visit Family Medicine [address] [place] [address] Krystian Palomo MD [address] [place] [address] [place] [address] 07/03/2024 1:30 PM EDT Hospital Encounter ENDO OSS, Endoscopy Room [facility] [address] [place] [phone] Jayla Armstrong MD [address] [place] [address] 07/03/2024 1:30 PM EDT - 07/03/2024 2:00 PM EDT Surgery ENDO [facility], Endoscopy Room [facility] [address] [place] [phone] Jayla Armstrong MD [address] [place] [address] ESOPHAGOGASTRODUODENOSCOPY (EGD), FLEXIBLE, TRANSORAL, DIAGNOSTIC 07/08/2024 11:45 AM EDT Imaging [facility] 2nd Floor Cardiology, [place] 132 [facility] [place] [phone] Gw, Excess Time Radiology 132 [facility] [place] [address] 07/12/2024 11:00 AM EDT Office Visit Pharmacy, [address] [place] [address] [place] [address] Scheduled Procedures Name Priority Associated Diagnoses Date/Ti [...] this encounter Medical Devices Implanted Type Area Sheltered Workshop Worker Device Identifier Shelf Expiration Date Model / Serial / Lot Lipiodol Injection - [id number] Implanted:Qty: 1 on 08/02/2023 at [facility] [employer] 04/28/2026 31897-086 1 -2 \[id number] Syr Pf 2ml Embospheres 100-300 - [id number] Implanted:Qty: 1 on 08/02/2023 at [facility] [employer] [id number] 02/26/2026 S220GH / / [id number] Syr Pf 2ml Embospheres 100-300 - [id number] Implanted:Qty: 1 on 04/11/2024 at [facility] [employer] [id number] 12/27/2026 S220GH / / [id number] Lipiodol Injection - [id number] Implanted:Qty: 1 on 04/11/2024 at [facility] [employer] car easily beat 21767-812 1 -2 / / documented as of this encounter Care Teams Fitting Room Maintenance Mechanic Relationship Specialty Start Date End Date Krystian Palomo MD [address] [place] [address] [place] [address] PCP - General Family Medicine 12/22/23 documented as of this encounter
--- OUTSIDE RECORDS SUMMARY | 2024-06-21 23:43 | External Medical Summary | Summary of Care ---
Author Name Unknown Organization [facility] Address [address] [place] [address] Phone [phone] Care Team Providers Care Entry Level Drafter Name Role Phone Krystian Palomo MD Primary Care Provide r Reason for Referral * Precert (Within 10 days (routine)) - Pending Review Specialty Diagnoses / Procedures Referred By Liliana harley Referred To Contact Radiology Diagnoses Hepatocellular carcinoma (HCC) Procedures MRI LIVER W WO CONTRAST Gerry Chauhan DO [address] [place] [address] Referral ID Status Reason Start Date Expiration Date V isits Requested Visits Authorized [id number] Pending Review 07/19/2024 999 999 Reason for Visit * Precert (Within 10 days (routine)) - Authorized Specialty Diagnoses / Procedures Referred By Liliana harley Referred To Contact Radiology Diagnoses Hepatocellular carcinoma (HCC) Procedures IR PROCEDURE NOT PERFORMED DOCUMENTATION ONLY IR CANCER CHEMO EMBOLIZATION (TACE) Amrit Magaña MD [address] [place] [address] Referral ID Status Reason Start Date Expiration Date V isits Requested Visits Authorized [id number] Authorized 05/12/[id number] Encounter Details Date Type Department Care Team (Latest Contact Info) Description 06/18/2024 7:24 AM EDT - 06/18/2024 8:46 AM EDT Hospital Encounter Radiology Waiting Room [facility] [place], [place] 1st [address] [place] [address] Macho Monroe MD [address] [place] [address] Arrived Discharge Disposition: Home - Self Care [...] 100 mL 10 01/24/2024 Active Dexcom G7 Auto Body Detailer Device Use as directed to monitor blood [...] daily. 15 mL 3 04/19/2024 Active Pen [place] 32G X 4 MM Use as directed. [...] Sign Reading Time Taken Comments Blood Pressure 111/48 06/18/2024 8:00 AM EDT Pulse 72 06/18/2024 8:00 AM EDT Temperature 35.9 C (96.6 F) 06/18/2024 8:00 AM ED T Respiratory Rate 10 06/18/2024 8:00 AM EDT Oxygen Saturation 99% 06/18/2024 8:00 AM EDT Inhaled Oxygen Concentration - - Weight - - Height - - Body Mass Index - - documented in this encounter Progress Notes * Amrit Magaña MD - 06/18/2024 8:38 AM EDT INTERVENTIONAL RADIOLOGY PROGRESS NOTE [facility] [address] [facility] [address] Name: Lloyd Spencer Location: RADIOLOGY WAITING ROOM/IR Date: 06/18/2024 Time: 8:38 AM Patient was scheduled for a bland embolization of a segment 5 liver lesion today. HIs bilirubin waselevated at 4.9. Given the risk of the procedure at this bilirubin level and the small size of the tumor, we will cancel the procedure. Plan: Order MRI in 3 months since previous bland embolization procedure. Telemed consult after MRI documented in this encounter H&P Notes * Amrit Magaña MD - 06/18/2024 7:49 AM EDT HISTORY & PHYSICAL - Vascular and Interventional Radiology Name: Lloyd Spencer Location: IR HISTORY OF PRESENT ILLNESS: Lloyd Spencer is a 58 year old year old male seen today in IR for segment 5 bland embolization. Lloyd Spencer is otherwise in usual normal state of health, denying symptoms of chest pain, SOB, fevers, chills, N/V/D. 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 Blood type A+ 09/21/2023 BMI 35.0-35.9,adult Cancer, hepatocellular (HCC) Diverticulitis of colon Diverticulosis of colon DM type 2, goal A1c below 7 02/26/2010 HGBA1C 7.5 Family history of colon cancer MotherNeema Fracture of rib of right side 12/21/2013 cortical fx anterior right 9th rib Gout 08/08/2001 uric acid 9.0 Hepatic encephalopathy (HCC) 03/28/2022 admitted [facility], ammonia 110 Hyperlipidemia LDL goal < 100 Infection due to human metapneumovirus (hMPV) 01/27/2020 COVID neg Ingrown toenail of both feet 04/04/2022 both big toenails trimmed for ingrown nails [place] 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 [facility] Past Surgical History: Procedure Laterality Date ABD/PELVIS CT W/O IV AND W/O PO CONTRAST 03/30/2010 diverticulitis, [facility] CHG CT HEAD/BRAIN W/O CONTRAST MATERIAL 02/27/2024 no acute changes to explain encephalopathy COLONOSCOPY, DIAGNOSTIC (RECTUM) 06/07/2019 normal, repeat 5 yrs/[facility] COLORECTAL CANCER SCREEN; COLON 05/22/2010 wnl , [...] performed by Gerardo Workman MD at ENDOSCOPY [facility] EGD, FLEXIBLE, DIAGNOSTIC 07/04/2023 Portal hypertensive gastropathy., esophagus and duodenuum normal (EGD), FLEXIBLE, TRANSORAL, DIAGNOSTIC performed by Juli Krause DO at ENDOSCOPY [facility] FOBT (EIA) 08/27/2023 negative IR CANCER CHEMO EMBOLIZATION (TACE) 08/02/2023 IR CANCER CHEMO EMBOLIZATION (TACE) 04/11/2024 MRI ABDOMEN W CONTRAST 06/09/2023 2 spots [...] on file Occupational History 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 (Adult - for ages 18 years and over): Not on file Housing Stability: Not on [...] Bill Hyperlipidemia Brother Bill No Known Problems Darneller Mathew Review of patient's allergies indicates: Allergen Reactions Aspirin Other reaction(s): bloody nose Salicylates nose bleeds Prior to Admission medications Medication Sig Last Dose Discont. Tamsulosin HCl 0.4 MG Oral Capsule (Flomax) TAKE ONE CAPSULE BY MOUTH EVERY DAY 06/17/2024 Mupirocin 2 % External Ointment (Bactroban) Apply topically to affected area 3 times a day. At hospital discharge 06/17/2024 Probi[address] & Acidophilus Ex St Oral Capsule Take 1 Capsule by mouth in the morning and 1 Capsuleat noon and 1 Capsule in the evening. Take with meals. 06/17/2024 Insulin Glargine Solostar 100 UNIT/ML Subcutaneous Solution Pen-injector (Lantus SoloStar) Inject 10 Units under the skin daily. 06/17/2024 Pen [place] 32G X 4 MM Use as directed. Use to inject insulin once daily. 06/17/2024 Furosemide 40 MG Oral Tablet (Lasix) TAKE ONE TABLET BY MOUTH IN THE MORNING 06/17/2024 Dexcom G7 Auto Body Detailer Device Use as directed to monitor blood sugars 06/18/2024 Dexcom G7 Sensor Use as directed to monitor blood sugars. Change every 10 days. 06/18/2024 Albuminex 25 % Intravenous Solution (Albumin Human-kjda) [...] 12 L - Give 3 units albumin Past Month Allopurinol 300 MG Oral Tablet (Zyloprim) TAKE ONE TABLET BY MOUTH IN THE MORNING 06/17/2024 Spironolactone 100 MG Oral Tablet (Aldactone) Take 1 Tablet by mouth in the morning. 06/17/2024 rifAXIMin 550 MG Oral Tablet (Xifaxan) TAKE ONE TABLET BY MOUTH EVERY MORNING AND ONE TABLET AT BEDTIME 06/17/2024 Albumin Human 25 % Intravenous Solution Give 50Gms after paracentesis (if more than 5L are removed). May run at 100/hr. Past Month Omeprazole 20 MG Oral Capsule Delayed Release (PriLOSEC) Take 1 Capsule by mouth in the morning. 1 hour before the first meal of the day. 06/17/2024 Atorvastatin Calcium 20 MG Oral Tablet (Lipitor) Take 1 Tablet by mouth in the morning. 06/17/2024 Lactulose 10 GM/15ML Oral Solution (Constulose) TAKE 45ML THREE TIMES DAILY,IN THE MORNING, AT NOON, AND BEDFORE BEDTIME 06/17/2024 Multivitamin Adult Oral Tablet daily . 06/17/2024 Vitamin C 1000 MG Oral Tablet daily . 06/17/2024 REVIEW OF SYSTEMS: Per HPI. OBJECTIVE: PHYSICAL EXAM: There were no vitals taken for this visit. Constitutional: no acute distress HEENT: mucous membranes moist Neck: supple CV: regular Chest: normal respiratory effort Neuro: alert and oriented Medications, labs and imaging were reviewed. PRE-SEDATION ASSESSMENT: Difficulty with sedation / anesthesia: No Sleep apnea: No History of snoring: No History of difficult intubation: No Decreased ROM neck flexion/extension: No Tracheal deviation: No Decreased ability to open mouth / TMJ: No Loose teeth / dentures / partial: No Congenital deformities / abnormalities: No Dysphagia: No Mallampati Classification: I - soft palate, uvula, fauces, pillars visible Chest: Clear Heart: Regular Rhythm ASA Risk Stratification (Select One): ASA 2 - Mild systemic disease, no functional limitations The patient was identified and the procedure verified: Yes IMPRESSION/PLAN: Lloyd Spencer is a 58 year old year old male seen today in IR for bland embolization liver tumor segment 5. Okay to proceed under moderate sedation. documented in this encounter Nursing Notes * Lata Gupta RN - 06/18/2024 8:40 AM EDT Case cancelled per Dr. Amrit Magaña. IV site removed. Patient discharged to home with all belongings. * Delmy Ruth RN - 06/18/2024 8:30 AM EDT PRE PROCEDURE SEDATION ASSESSMENT [facility] INTERVENTIONAL RADIOLOGY Information obtained via phone call? yes/no: yes Chart review? yes/no: no Spoke with patient/caregiver(name)? yes/no: patient IR procedure to be performed: Benedict Embo Patient with recent illness (within 2 [...] HTN): yes/no: no Cardiovascular complications? (HTN, Pacemaker/defib, MD, Arrhythmia, CHF, Heart Murmur, Heart surgery): yes/no: [...] depression, anxiety, migraines, substance abuse): yes/no: no documented in this encounter Plan of Treatment Upcoming Encounters Date Type Department Care Team (Latest Contact Info) Description 07/03/2024 1:30 PM EDT Hospital Encounter ENDO [facility], Endoscopy Room [facility] [address] [place] [phone] Jayla Armstrong MD [address] [place] [address] 07/03/2024 1:30 PM EDT - 07/03/2024 2:00 PM EDT Surgery ENDO O[facility], Endoscopy Room [facility] [address] [place] [phone] Jayla Armstrong MD [address] [place] [address] ESOPHAGOGASTRODUODENOSCOPY (EGD), FLEXIBLE, TRANSORAL, DIAGNOSTIC 07/08/2024 11:45 AM EDT Imaging [facility] [address] [place] [phone] Gw, Excess Time Radiology [address] [place] [address] 07/12/2024 11:00 AM EDT Office Visit Pharmacy, [address] [place] [address] [place] [address] 07/19/2024 1:45 PM EDT Imaging Radiology [facility] 1st [facility] [address] [place] [address] 10/18/2024 10:30 AM EST Office Visit Gastroenterology , [facility] [address] [place] [address] Ren Pineda CRNP [address] [place] [address] Scheduled Orders Name Type Priority Associated Diagnoses Orde r Schedule MRI LIVER W WO CONTRAST Medical Imaging Routine Hepatocellular carcinoma (HCC) Expected: 07/19/2024, Expires: 07/19/2025 PT INR Lab Routine Hepatocellular carcinoma (HCC) Expected: 07/19/2024, Expires: 06/18/2025 HEPATIC FUNCTION PANEL Lab Routine Hepatocellular carcinoma (HCC) Expected: 07/19/2024, Expires: 06/18/2025 Scheduled Procedures Name Priority Associated Diagnoses Date/Ti [...] 03/0 05/2024, 09/18/2023, Additional history exists GFR 06/18/2025 06/18/2024, 080 03/2024, 06/01/2024, Additional history exists Lipid Panel 09/18/2028 09/18/2023, 05/31, 03/09/2022, Additional history exists Colonoscopy 01/10/2029 01/11/2024, 06/2019, 05/21/2010 Colorectal Cancer Screening 01/10/2029 Hepatitis [...] this encounter Medical Devices Implanted Type Area Attendant Lodging Facilities Device Identifier Shelf Expiration Date Model / Serial / Lot Lipiodol Injection - [id number] Implanted:Qty: 1 on 08/02/2023 at [facility] [employer] 04/28/2026 [id number] Syr Pf 2ml Embospheres 100-300 - [id number] Implanted:Qty: 1 on 08/02/2023 at [facility] [employer] [id number] 02/26/2026 S220GH / / [id number] Syr Pf 2ml Embospheres 100-300 - [id number] Implanted:Qty: 1 on 04/11/2024 at [facility] [employer] [id number] 12/27/2026 S220GH / / [id number] Lipiodol Injection - [id number] Implanted:Qty: 1 on 04/11/2024 at [facility] [employer] [id number] -2 / / documented as of this encounter Procedures Procedure Name Priority Date/Time Associated Diagnosis Comments IR PROCEDURE NOT PERFORMED DOCUMENTATION ONLY Routine 06/18/2024 8:41 AM EDT Hepatocellular carcinoma (HCC) documented in this encounter Results * IR PROCEDURE NOT PERFORMED DOCUMENTATION ONLY (06/18/2024 8:41 AM EDT) Narrative Scheduling, Silent - 06/18/2024 8:41 AM EDT IR procedure ordered was not performed, nursing documentation notes only. Amrit DIAZ documented in this encounter Visit Diagnoses Diagnosis Hepatocellular carcinoma (HCC) Malignant neoplasm of liver, primary Rios's esophagus documented in this encounter Care Teams Entry Level Drafter Relationship Specialty Start Date End Date Krystian Palomo MD [address] [place] [address] [place] [phone] PCP - General Family Medicine 12/22/23 documented as of this encounter
--- OUTSIDE RECORDS SUMMARY | 2024-06-21 23:43 | External Medical Summary | Summary of Care ---
Author Name Unknown Organization [facility] Address [address] [facility] [address] Phone [phone] Care Team Providers Care Drum Saw Operator Name Role Phone Krystian Palomo MD Primary Care Provide r Encounter Details Date Type Department Care Team (Late st Contact Info) Description 06/12/2024 Telephone Gastroenterology, [facility] 132 [facility] [place] [address] Jayla Armstrong MD [address] [place] [address] [place] [phone] Allergies Active Allergy Reactions Criticality Noted Date Comments Aspirin 01/28/2022 Other reaction(s): bloody nose Salicylates 08/08/2001 nose bleeds documented as of this encounter (statuses as of 06/12/2024) Medications Medication Sig Dispensed Refills Start Date [...] 100 mL 10 01/24/2024 Active Dexcom G7 Greenhouse Staff Device Use as directed to monitor blood [...] daily. 15 mL 3 04/19/2024 Active Pen [place] 32G X 4 MM Use as directed. [...] as of this encounter (statuses as of 06/12/2024) Active Problems Problem Noted Date Diagnosed Date BPH without obstruction/lower urinary tract symp toms 12/22/2023 BMI 36.0-36.9,adult 10/24/2023 Overview: 266 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 07/05/2023 Hepatic encephalopathy 03/28/2022 Overview: admitted [facility], ammonia 110 Aortic stenosis, moderate 01/21/2022 [...] as of this encounter (statuses as of 06/12/2024) Resolved Problems Problem Noted Date Diagnosed Date [...] as of this encounter (statuses as of 06/12/2024) Immunizations Name Administration Dates Next Due COVID-19 [...] 06/18/2024 8:30 AM EDT Appointment Interventional Radiology [facility] 1st Floor [address] [facility] [place] [phone] 06/24/2024 8:20 AM EDT Office Visit Family Medicine [address] [place] [phone] Krystian Palomo MD [address] [place] [address] [place] [address] 07/03/2024 1:30 PM EDT Hospital Encounter ENDO OSS, Endoscopy Room [facility] 132 [facility] [place] [phone] Jayla Armstrong MD [address] [place] [phone] 07/03/2024 1:30 PM EDT - 07/03/2024 2:00 PM EDT Surgery ENDO [facility], Endoscopy Room [facility] [address] [place] [phone] Jayla Armstrong MD [address] [place] [address] ESOPHAGOGASTRODUODENOSCOPY (EGD), FLEXIBLE, TRANSORAL, DIAGNOSTIC 07/08/2024 11:45 AM EDT Imaging [facility] 2nd Floor Cardiology, [place] [address] [place] [phone] Gw, Excess Time Radiology [address] [place] [address] 07/12/2024 11:00 AM EDT Office Visit Pharmacy, [address] [place] [address] [place] [address] 10/18/2024 10:30 AM EST Office Visit Gastroenterolog y, [facility] [address] [place] [address] Ren Pineda CRNP [address] [place] [address] Scheduled Procedures Name Priority Associated Diagnoses Date/Ti [...] this encounter Medical Devices Implanted Type Area Hand Method Lasting Machine Operator Device Identifier Shelf Expiration Date Model / Serial / Lot Lipiodol Injection - [id number] Implanted:Qty: 1 on 08/02/2023 at [facility] [employer] 04/28/2026 [id number] Syr Pf 2ml Embospheres 100-300 - [id number] Implanted:Qty: 1 on 08/02/2023 at [facility] [employer] [id number] 02/26/2026 S220GH / / [id number] Syr Pf 2ml Embospheres 100-300 - [id number] Implanted:Qty: 1 on 04/11/2024 at [facility] [employer] [id number] 12/27/2026 S220GH / / [id number] Lipiodol Injection - [id number] Implanted:Qty: 1 on 04/11/2024 at [facility] [employer] [id number] 1 -2 / / documented as of this encounter Care Teams Drum Saw Operator Relationship Specialty Start Date End Date Krystian Palomo MD [address] [place] [address] [place] [address] PCP - General Family Medicine 12/22/23 documented as of this encounter
--- OUTSIDE RECORDS SUMMARY | 2024-06-21 23:43 | External Medical Summary | Summary of Care ---
Author Name Unknown Organization [facility] Address [address] [facility] [place] [address] Phone [phone] Care Team Providers Care Special Police Officer Name Role Phone Krystian Palomo MD Primary Care Provide r Reason for Visit * Reason Onset Date Comments FYI 06/11/2024 Encounter Details Date Type Department Care Team (Late st Contact Info) Description 06/11/2024 Telephone Family Medicine [address] [phone] Krystian Palomo MD [address] [place] [address] [place] [phone] Allergies Active Allergy Reactions Criticality Noted Date [...] 100 mL 10 01/24/2024 Active Dexcom G7 Communication Center Operator Device Use as directed to monitor [...] daily. 15 mL 3 04/19/2024 Active Pen [place] 32G X 4 MM Use as directed. [...] encounter Miscellaneous Notes * Telephone Encounter - Maura Ruiz OSA - 06/11/2024 10:38 AM EDT Patient calling with I for Dr. Mcclure that he made it home safe. documented in this encounter Plan of Treatment Upcoming Encounters Date Type Department Care Team (Latest Contact Info) Description 06/18/2024 8:30 AM EDT Appointment Interventional Radiology [facility] 1st Floor [address] [facility] [place] [phone] 06/24/2024 8:20 AM EDT Office Visit Family Medicine [address] [place] [phone] Krystian Palomo MD [address] [place] [address] [place] [address] 07/03/2024 1:30 PM EDT Hospital Encounter ENDO OSSC, Endoscopy Room OSS[address] [place] [phone] Jayla Armstrong MD [address] [place] [address] [place] [address] 07/03/2024 1:30 PM EDT - 07/03/2024 2:00 PM EDT Surgery END[facility] [place] [phone] Jayla Armstrong MD [address] [place] [address] ESOPHAGOGASTRODUODENOSCOPY (EGD), FLEXIBLE, TRANSORAL, DIAGNOSTIC 07/08/2024 11:45 AM EDT Imaging [facility] 132 [facility] [place] [phone] Gw, Excess Time Radiology 132 [facility] [place] [address] 07/12/2024 11:00 AM EDT Office Visit Pharmacy, [address] [place] [address] [place] [address] 10/18/2024 10:30 AM EST Office Visit Gastroenterolog y, [facility] 132 [facility] [place] [address] Ren Pineda CRNP 132 [facility] [place] [address] Scheduled Procedures Name Priority Associated Diagnoses Date/Ti [...] this encounter Medical Devices Implanted Type Area Clinical Neuropsychologist Device Identifier Shelf Expiration Date Model / Serial / Lot Lipiodol Injection - [id number] Implanted:Qty: 1 on 08/02/2023 at [facility] [employer] 04/28/2026 [id number] 1 -2 / [id number] Syr Pf 2ml Embospheres 100-300 - [id number] Implanted:Qty: 1 on 08/02/2023 at [facility] [employer] [id number] 02/26/2026 S220GH / / [id number] Syr Pf 2ml Embospheres 100-300 - [id number] Implanted:Qty: 1 on 04/11/2024 at [facility] [employer] [id number] 12/27/2026 S220GH / / [id number] Lipiodol Injection - [id number] Implanted:Qty: 1 on 04/11/2024 at [facility] [employer] [id number] 1 -2 / / documented as of this encounter Care Teams Special Police Officer Relationship Specialty Start Date End Date Krystian Palomo MD [address] [place] [address] [place] [address] PCP - General Family Medicine 12/22/23 documented as of this encounter
--- OUTSIDE RECORDS SUMMARY | 2024-06-21 23:43 | External Medical Summary | Summary of Care ---
Author Name Unknown Organization [facility] Address [address] [facility] [place] [address] Phone [phone] Care Team Providers Care Flue Blower Name Role Phone Krystian Palomo MD Primary Care Provide r Encounter Details Date Type Department Care Team (Late st Contact Info) Description 06/17/2024 Orders Only PATIENT PORTAL DO NOT DELETE THIS DEPT USED BY ALEX AYON [id number] Allergies Active Allergy Reactions Criticality Noted Date Comments Aspirin 01/28/2022 Other reaction(s): bloody nose Salicylates 08/08/2001 nose bleeds documented as of this encounter (statuses as of 06/17/2024) Medications Medication Sig Dispensed Refills Start Date [...] 100 mL 10 01/24/2024 Active Dexcom G7 Mash Filter Operator Device Use as directed to monitor [...] daily. 15 mL 3 04/19/2024 Active Pen [place] 32G X 4 MM Use as directed. [...] as of this encounter (statuses as of 06/17/2024) Active Problems Problem Noted Date Diagnosed Date [...] as of this encounter (statuses as of 06/17/2024) Resolved Problems Problem Noted Date Diagnosed Date [...] as of this encounter (statuses as of 06/17/2024) Immunizations Name Administration Dates Next Due COVID-19 [...] 8:30 AM EDT Hospital Encounter [place]ventional [place] [facility] [place] [facility] 1st Floor [address] [place] [address] 06/24/2024 8:20 AM EDT Office Visit Family Medicine [address] [place] [address] Krystian Palomo MD [address] [place] [address] [place] [address] 07/03/2024 1:30 PM EDT Hospital Encounter ENDO [facility], Endoscopy Room [address] [place] [phone] Jayla Armstrong MD [facility] [place] [address] 07/03/2024 1:30 PM EDT - 07/03/2024 2:00 PM EDT Surgery ENDO [facility], Endoscopy Room [facility] [address] [facility] [phone] Jayla Armstrong MD [facility] [place] [id number] ESOPHAGOGASTRODUODENOSCOPY (EGD), FLEXIBLE, TRANSORAL, DIAGNOSTIC 07/08/2024 11:45 AM EDT Imaging Bruce Miranda II 2nd Floor Cardiology, [place] [address] [place] [phone] Gw, Excess Time Radiology [address] [place] [address] 07/12/2024 11:00 AM EDT Office Visit Pharmacy, [address] [place] [address] [place] [address] 10/18/2024 10:30 AM EST Office Visit Gastroenterology , [facility] [address] [place] [address] Ren Pineda CRNP [facility] [place] [address] Scheduled Procedures Name Priority Associated Diagnoses Date/Ti [...] this encounter Medical Devices Implanted Type Area Motorcycle Subassembler Device Identifier Shelf Expiration Date Model / Serial / Lot Lipiodol Injection - [id number] Implanted:Qty: 1 on 08/02/2023 at [facility] [employer] 04/28/2026 [id number] Syr Pf 2ml Embospheres 100-300 - [id number] Implanted:Qty: 1 on 08/02/2023 at [facility] [employer] [id number] 02/26/2026 S220GH / / [id number] Syr Pf 2ml Embospheres 100-300 - [id number] Implanted:Qty: 1 on 04/11/2024 at [facility] [employer] [id number] 12/27/2026 S220 / / [id number] Lipiodol Injection - [id number] Implanted:Qty: 1 on 04/11/2024 at [facility] [employer] [id number] 1 -2 / / documented as of this encounter Care Teams Flue Blower Relationship Specialty Start Date End Date Krystian Palomo MD [address] [place] [address] [place] [address] PCP - General Family Medicine 12/22/23 documented as of this encounter
--- OUTSIDE RECORDS SUMMARY | 2024-06-21 23:43 | External Medical Summary | Summary of Care ---
Author Name Unknown Organization [facility] Address [address] [facility] [place] [address] Phone [phone] Care Team Providers Care Museum Librarian Name Role Phone Krystian Palomo MD Primary Care Provide r Reason for Visit * Reason Onset Date Comments Appointment 03/15/2024 Encounter Details Date Type Department Care Team (Late st Contact Info) Description 03/15/2024 Telephone Cardiology, [facility] [address] [place] [address] Chino Carrillo PA-C [address] [place] [address] Appointment Allergies Active Allergy Reactions Criticality Noted Date Comments Aspirin 01/28/2022 Other reaction(s): bloody nose Salicylates 08/08/2001 nose bleeds documented as of this encounter (statuses as of 06/14/2024) Medications Medication Sig Dispensed Refills Start Date [...] 100 mL 10 01/24/2024 Active Dexcom G7 Restaurant Crew Member Device Use as directed to monitor blood sugars 1 Each 03/06/2024 Active Dexcom G7 Sensor Use as directed to monitor blood sugars. Change every 10 days. 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 Patient states he was in the hospital and was unable to schedule. Please assist patient to schedule, thank you. NM MYOCARD PERF IMG SPECT MULT STUDIES WITH PHARM INTERV [28676.02] (Order [id number]) documented in this encounter Plan of Treatment Upcoming Encounters Date Type Department Care Team (Latest Contact Info) Description 06/18/2024 8:30 AM EDT Hospital Encounter Interventional Radiology [facility] [place], [facility] 1st Floor [address] [facility] [address] 06/24/2024 8:20 AM EDT [address] [address] Krystian Palomo MD [address] [place] [address] [place] [address] 07/03/2024 1:30 PM EDT Hospital Encounter ENDO [facility], Endoscopy Room [facility] [address] [place] [phone] Jayla Armstrong MD 310 [place] [address] 07/03/2024 1:30 PM EDT - 07/03/2024 2:00 PM EDT Surgery ENDO [facility], Endoscopy Room [facility] [address] [place] [phone] Jayla Armstrong MD 310 [place] [address] ESOPHAGOGASTRODUODENOSCOPY (EGD), FLEXIBLE, TRANSORAL, DIAGNOSTIC 07/08/2024 11:45 AM EDT Imaging [facility] 2nd Floor Cardiology, [place] [address] [place] [phone] Gw, Excess Time Radiology [address] [place] [address] 07/12/2024 11:00 AM EDT Office Visit Pharmacy, [address] [place] [address] [place] [address] 10/18/2024 10:30 AM EST Office Visit Gastroenterology , [facility] [address] [place] [address] Ren Pineda CRNP [address] [place] [address] Scheduled Procedures Name Priority Associated Diagnoses Date/Ti [...] this encounter Medical Devices Implanted Type Area Vascular Tech Device Identifier Shelf Expiration Date Model / Serial / Lot Lipiodol Injection - [id number] Implanted:Qty: 1 on 08/02/2023 at [facility] [employer] 04/28/2026 [id number] Syr Pf 2ml Embospheres 100-300 - [id number] Implanted:Qty: 1 on 08/02/2023 at [facility] [employer] [id number] 02/26/2026 S220GH / / [id number] Syr Pf 2ml Embospheres 100-300 - [id number] Implanted:Qty: 1 on 04/11/2024 at [facility] [employer] [id number] 12/27/2026 S220 / / [id number] Lipiodol Injection - [id number] Implanted:Qty: 1 on 04/11/2024 at [facility] [employer] 21160-260 1 -2 / / documented as of this encounter Care Teams Museum Librarian Relationship Specialty Start Date End Date Krystian Palomo MD [address] [place] [address] [place] [phone] PCP - General Family Medicine 12/22/23 documented as of this encounter
--- OUTSIDE RECORDS SUMMARY | 2024-06-21 23:43 | External Medical Summary ---
Author Name Unknown Address Unknown Organization K01:LABORATORY [facility] [place] - [address] [place] [address] Laboratory Report Ordering Provider Test Date Status YSABEL FERRERA 06/18/2024 07:20:25 Final Warfarin Therapy
INR: 2 .0-3.0 conventional anticoagulation
INR: 2.5- 3.5 high intensity anticoagulation Observation Date Value Abnormality Reference (Units ) Status PT 06/18/2024 07:20:25 19.3 Above high normal 11 .6-15.2 (seconds) Final INR 06/18/2024 07:20:25 1.6 Above high normal 0. 8-1.2 Final Performing Location LABORATORY [facility] [place] - [address] [place] [address]
--- OUTSIDE RECORDS SUMMARY | 2024-06-21 23:43 | External Medical Summary ---
Author Name Unknown Address Unknown Organization [id number][place] [facility] [place] [address] [place] [address] Laboratory Report Ordering Provider Test Date Status YSABEL FERRERA 06/18/2024 07:20:25 Final Observation Date Value Abnormality Reference (Units ) Status BUN 06/18/2024 07:20:25 18 6-20 (mg/dL) Final Creatinine 06/18/2024 07:20:25 1.0 0.6-1.2 (mg/dL) Final Glomerular filtration rate/1.73 sq M.predicted [Volume Rate/Area] in Serum, Plasma or Blood by Creatinine-based formula (CKD-EPI) 06/18/2024 07:20:25 >90 >=60 (mL/min) Final eGFR is calculated based on the CKD-EPI 2020 equation. Sodium 06/18/2024 07:20:25 128 Below low normal 135 -146 (mmol/L) Final Potassium 06/18/2024 07:20:25 4.3 3.5-5.1 (m mol/L) Final Cl 06/18/2024 07:20:25 97 Below low normal 98- 107 (mmol/L) Final CO2 06/18/2024 07:20:25 18 Below low normal 22- 32 (mmol/L) Final Anion gap 06/18/2024 07:20:25 13 7-15 (mmol /L) Final Glucose 06/18/2024 07:20:25 129 Above high normal 70 -120 (mg/dL) Final Albumin 06/18/2024 07:20:25 2.9 Below low normal 3.8 -5.0 (g/dL) Final AST (Aspartate aminotransferase) 06/18/2024 07:20:25 62 Above high normal 10-50 (U/L) Final Result may be falsely elevat ed due to hemolysis. Alk Phos 06/18/2024 07:20:25 123 35-130 (U/ L) Final Bilirubin, Total 06/18/2024 07:20:25 4.9 Above high no rmal <=1.2 (mg/dL) Final Calcium 06/18/2024 07:20:25 8.8 8.4-10.2 ( mg/dL) Final Protein 06/18/2024 07:20:25 7.1 6.0-8.3 (g /dL) Final ALT (Alanine aminotransferase) 06/18/2024 07:20:25 33 10-50 (U/L) Christian bundy Performing Location [facility] [place] [address] [facility] [address]
--- OUTSIDE RECORDS SUMMARY | 2024-06-21 23:44 | External Medical Summary | Summary of Care ---
Author Name Unknown Organization [facility] Address [address] [facility] [place] [address] Phone [phone] Care Team Providers Care Smoking Tobacco Packing Machine Hand Name Role Phone Krystian Palomo MD Primary Care Provide r Reason for Visit * Reason Comments Hospital Follow-Up Encounter Details Date Type Department Care Team (Latest Contact Info) Description 06/04/2024 10:20 AM EDT Office Visit Family Medicine [address] [place] [phone] Krystian Palomo MD [address] [place] [address] [place] [address] Kidney stone*; Hepatic encephalopathy (HCC) Allergies Active Allergy Reactions Criticality Noted Date Comments Aspirin 01/28/2022 Other reaction(s): bloody nose Salicylates 08/08/2001 nose bleeds documented as of this encounter (statuses as of 06/04/2024) Medications Medication Sig Dispensed Refills Start Date [...] 100 mL 10 01/24/2024 Active Dexcom G7 Firer Helper Device Use as directed to monitor blood [...] daily. 15 mL 3 04/19/2024 Active Pen [place] 32G X 4 MM Use as directed. 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 07/05/2023 Hepatic encephalopathy 03/28/2022 Overview: admitted [facility], ammonia 110 Aortic stenosis, moderate 01/21/2022 [...] as of this encounter (statuses as of 06/04/2024) Resolved Problems Problem Noted Date Diagnosed Date [...] as of this encounter (statuses as of 06/04/2024) Immunizations Name Administration Dates Next Due COVID-19 [...] Sign Reading Time Taken Comments Blood Pressure 120/64 06/04/2024 10:14 AM EDT Pulse 64 06/04/2024 10:14 AM EDT Temperature 35.6 C (96 F) 06/04/2024 10:14 AM EDT Respiratory Rate 18 06/04/2024 10:14 AM EDT Oxygen Saturation - - Inhaled Oxygen Concentration - - Weight 110.7 kg (244 lb) 06/04/2024 10:14 AM EDT Height 181 cm (5' 11.25") 06/04/2024 10:14 AM ED T Body Mass Index 33.79 06/04/2024 10:14 AM EDT documented in this encounter Progress Notes * Krystian Palomo MD - 06/04/2024 10:26 AM EDT Subjective: HPI: Lloyd Spencer is a 58 year old male with hx of DMII, HLD, HTN, thrombocytopenia, Moderate , Livercirrhosis with ascites , BPH, Hepatocellular carcinoma s/p TACE seen for Pt recently went to the ER on 06/01/24 - dx with L UVJ stone with hydronephrosis - Cr: 1.34 - discharged on oxycodone Per pt he was admitted to the hospital again 05/26-05/30 - hepatic encephalopathy Today: - pt thinks he passed the stone - pain free for 1 day - denied any fever - denied any hematuria - taking Lactulose TID and doing ducolax --- no BM yesterday or today --- had 2 BM 2 days ago --- denied any confusion Patient Active Problem List Diagnosis Family history [...] C 1000 MG Oral Tablet daily . Lactulose 10 GM/15ML Oral Solution (Constulose) TAKE 45ML THREE TIMES DAILY,IN THE MORNING, AT NOON, AND BEDFORE BEDTIME 4050 mL 5 Atorvastatin Calcium 20 MG Oral Tablet (Lipitor) Take 1 Tablet by mouth in the morning. 90 Tablet 1 Omeprazole 20 MG Oral Capsule Delayed Release (PriLOSEC) Take 1 Capsule by mouth in the morning. 1 hour before the first meal of the day. 90 Capsule 3 Tamsulosin HCl 0.4 MG Oral Capsule (Flomax) One daily 30 Capsule 5 Albumin Human 25 % Intravenous Solution Give 50Gms after paracentesis (if more than 5L are removed). May run at 100/hr. 100 mL 0 rifAXIMin 550 MG Oral Tablet (Xifaxan) TAKE [...] Give 3 units albumin 100 mL 10 Dexcom G7 Firer Helper Device Use as directed to monitor blood sugars 1 Each 0 Dexcom G7 Sensor Use as directed to monitor blood sugars. Change every 10 days. 3 Each 3 Furosemide 40 MG Oral Tablet (Lasix) TAKE ONE TABLET BY MOUTH IN THE MORNING 30 Tablet 3 Insulin Glargine Solostar 100 UNIT/ML Subcutaneous Solution Pen-injector (Lantus SoloStar) Inject 10 Units under the skin daily. 15 mL 3 Pen Queen 32G X 4 MM Use as directed. Use to inject insulin once daily. 100 Each 3 Probiotic & Acidophilus Ex St Oral Capsule Take 1 Capsule by mouth in the morning and 1 Capsuleat noon and 1 Capsule in the evening. Take with meals. Mupirocin 2 % External Ointment (Bactroban) Apply topically to affected area 3 times a day. At hospital discharge 22 g 1 No current facility-administered medications for this visit. 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 Blood type A+ 09/21/2023 BMI 35.0-35.9,adult Cancer, hepatocellular (HCC) Diverticulitis of colon Diverticulosis of colon DM type 2, goal A1c below 7 02/26/2010 HGBA1C 7.5 Family history of colon cancer Mother, Neema Payneigh Fracture of rib of right side 12/21/2013 cortical fx anterior right 9th rib Gout 08/08/2001 uric acid 9.0 Hepatic encephalopathy (HCC) 03/28/2022 admitted [facility], ammonia 110 Hyperlipidemia LDL goal < 100 Infection due to human metapneumovirus (hMPV) 01/27/2020 COVID neg Ingrown toenail of both feet 04/04/2022 both big toenails trimmed for ingrown nails [place] 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 [facility] Past Surgical History: Procedure Laterality Date ABD/PELVIS CT W/O IV AND W/O PO CONTRAST 03/30/2010 diverticulitis, [facility] CHG CT HEAD/BRAIN W/O CONTRAST MATERIAL 02/27/2024 no acute changes to explain encephalopathy COLONOSCOPY, DIAGNOSTIC (RECTUM) 06/07/2019 normal, repeat 5 yrs/[facility] COLORECTAL CANCER SCREEN; COLON 05/22/2010 wnl [...] performed by Gerardo Workman MD at ENDOSCOPY [facility] EGD, FLEXIBLE, DIAGNOSTIC 07/04/2023 Portal hypertensive gastropathy., esophagus and duodenuum normal (EGD), FLEXIBLE, TRANSORAL, DIAGNOSTIC performed by Juli Krause DO at ENDOSCOPY [facility] FOBT (EIA) 08/27/2023 negative IR CANCER CHEMO [...] Bill Hyperlipidemia Brother Bill No Known Problems Brother Edmiley Social History Tobacco Use Smoking status: Never Smokeless tobacco: Former Types: Chew Quit date: 05/18/2005 Substance Use Topics Alcohol use: No Vaping/E-Cigarette Use Vaping/E-Cigarette Use Never User Vaping/E-Cigarette Substances Vaping/E-Cigarette Devices ROS: -Per HPI OBJECTIVE: BP 120/64 | Pulse 64 | Temp 35.6 C (96 F) | Resp 18 | Ht 1.81 m (5' 11.25") | Wt 110.7 kg (244 lb) | BMI 33.79 kg/m | BSA 2.36 m PHYSICAL EXAM: Vitals are reviewed General:. NAD, well developed HEENT:. Normal Conjunctiva, EOMI Abd:. Reducible abd hernia, soft, ND, NT MSK:. Normal gait Psych:. AAOx3, normal affect ASSESSMENT/PLAN: Pt appeared comfortable in the clinic - will recheck BMP due to hydronephrosis Advised the pt to increase the lactulose to 5x/day and msg the clinic in 3 days to monitor the response - pt is AAOx3 and appeared well Kidney stone (Primary) - BASIC METABOLIC PANEL Hepatic encephalopathy (HCC) I spent a total of 30-39 minutes (exact time 35 mins) on the date of service in preparation, delivery, and documentation of the care provided to Lloyd Spencer excluding any time spent in the performance of separately billed services or time spent by another provider/QHP. Krystian Palomo MD Family medicine, [address] [address] documented in this encounter Nursing Notes * Susana Crenshaw RN - 06/04/2024 10:18 AM EDT Hospital follow up, pt passed a kidney stone. Pt states that he was also at hospital 2 weeks ago for elevated ammonia levels and low BP Pt feeling good now documented in this encounter Plan of Treatment Upcoming Encounters Date Type Department Care Team (Latest Contact Info) Description 06/07/2024 11:00 AM EDT Office Visit Pharmacy, [address] [place] [address] [place] [address] 06/11/2024 9:00 AM EDT Office Visit Gastroenterolog y, [facility] [address] [place] [address] Ren Pineda CRNP [address] [place] [address] 06/18/2024 8:30 AM EDT Appointment Interventional Radiology [facility], [address] 1st Floor [address] [facility] [place] [phone] 06/24/2024 8:20 AM EDT Office Visit Family Medicine [address] [address] Krystian Palomo MD [address] [place] [address] [place] [address] 07/03/2024 1:30 PM EDT Hospital Encounter ENDO [facility], Endoscopy Room [facility] [address] [place] [address] Jayla Armstrong MD [address] [place] [address] 07/03/2024 1:30 PM EDT - 07/03/2024 2:00 PM EDT Surgery ENDO [facility], Endoscopy Room [facility] [address] [place] [phone] Jayla Armstrong MD [address] [place] [address] ESOPHAGOGASTRODUODENOSCOPY (EGD), FLEXIBLE, TRANSORAL, DIAGNOSTIC 07/08/2024 11:45 AM EDT Imaging [facility] [address] [place] [phone] Gw, Excess Time Radiology [address] [place] [address] Scheduled Procedures Name Priority Associated Diagnoses Date/Ti [...] 09/18/2023, Additional history exists GFR 04/11/2025 04/11/2024, 041 10/2023, 01/24/2024, Additional history exists Lipid Panel 09/18/2028 [...] encounter Medical Devices Implanted Type Area Logistics Coordinator Device Identifier Shelf Expiration Date Model / Serial / Lot Lipiodol Injection - [id number] Implanted:Qty: 1 on 08/02/2023 at [facility] [employer]U 04/28/2026 [id number] -[id number] Syr Pf 2ml Embospheres 100-300 - [id number] Implanted:Qty: 1 on 08/02/2023 at [facility] [employer] [id number] 02/26/2026 S220GH / / [id number] Syr Pf 2ml Embospheres 100-300 - [id number] Implanted:Qty: 1 on 04/11/2024 at [facility] [employer] [id number] 12/27/2026 S220GH / / [id number] Lipiodol Injection - [id number] Implanted:Qty: 1 on 04/11/2024 at [facility] [employer] [id number] - documented as of this encounter Visit Diagnoses Diagnosis Kidney stone- Primary Calculus of kidney Hepatic encephalopathy (HCC) Hepatic encephalopathy Rios's esophagus documented in this encounter Care Teams Smoking Tobacco Packing Machine Hand Relationship Specialty Start Date End Date Krystian Palomo MD [address] [place] [address] [place] [address] PCP - General Family Medicine 12/22/23 documented as of this encounter
--- OUTSIDE RECORDS SUMMARY | 2024-06-21 23:44 | External Medical Summary ---
Author Name Unknown Address Unknown Organization K01:[facility] [place] [address] [place] [address] Laboratory Report Ordering Provider Test Date Status HERIBERTO RAO 06/04/2024 10:49:42 Final Warfarin Therapy
INR: 2 .0-3.0 conventional anticoagulation
INR: 2.5- 3.5 high intensity anticoagulation Observation Date Value Abnormality Reference (Units ) Status PT 06/04/2024 10:49:42 19.4 Above high normal 11 .6-15.2 (seconds) Final INR 06/04/2024 10:49:42 1.6 Above high normal 0. 8-1.2 Final Performing Location [facility] [place] [address] [place] [address]
--- OUTSIDE RECORDS SUMMARY | 2024-06-21 23:44 | External Medical Summary ---
Author Name Unknown Address Unknown Organization K01[place] [place] [address] [place] [address] Laboratory Report Ordering Provider Test Date Status HERIBERTO RAO 06/04/2024 10:49:42 Final Observation Date Value Abnormality Reference (Units ) Status SYNC LEUKOCYTES IN BLOOD BY AUTOMATED COUNT 06/04/2024 10:49:42 4.49 4.00-10.80 (K/uL) Final Segs 06/04/2024 10:49:42 63.2 40.0-75.0 (%) Final Lymphs % 06/04/2024 10:49:42 13.1 Below low normal 18.0-42.0 (%) Final Monos 06/04/2024 10:49:42 16.3 Above high normal 1.0-11.0 (%) Final Eosinophils 06/04/2024 10:49:42 4.5 0.0-6.0 (%) Final Basos 06/04/2024 10:49:42 2.0 0.0-2.0 (%) Final Immature Granulocyte, Percent 06/04/2024 10:49:42 0.9 0.0-2.0 (%) Final Absolute Segs 06/04/2024 10:49:42 2.84 1.80-7.70 (K/uL) Final Lymphs, absolute 06/04/2024 10:49:42 0.59 Below low normal 1.00-4.80 (K/ul) Final Monos, Abs 06/04/2024 10:49:42 0.73 0.00-1.10 (K/uL) Final Eos, Abs 06/04/2024 10:49:42 0.20 0.00-0.70 (K/uL) Final Basos, Abs 06/04/2024 10:49:42 0.09 0.00-0.20 (K/uL) Final Immature Granulocytes, Number 06/04/2024 10:49:42 0.04 0.00-0.20 (K/uL) Final Performing Location [facility] [place] [address] [facility] [address]
--- OUTSIDE RECORDS SUMMARY | 2024-06-21 23:44 | External Medical Summary | Summary of Care ---
Author Name Unknown Organization [facility] Address [address] [facility] [address] Phone [phone] Care Team Providers Care Floor Covering Installer Name Role Phone Krystian Palomo MD Primary Care Provide r Encounter Details Date Type Department Care Team (Late st Contact Info) Description 06/05/2024 Orders Only Family Medicine [address] [place] [phone] Krystian Palomo MD [address] [place] [address] [place] [address] Allergies Active Allergy Reactions Criticality Noted Date Comments Aspirin 01/28/2022 Other reaction(s): bloody nose Salicylates 08/08/2001 nose bleeds documented as of this encounter (statuses as of 06/05/2024) Medications Medication Sig Dispensed Refills Start Date [...] 100 mL 10 01/24/2024 Active Dexcom G7 Boiler House Inspector Device Use as directed to monitor blood [...] daily. 15 mL 3 04/19/2024 Active Pen [place]da 32G X 4 MM Use as directed. [...] as of this encounter (statuses as of 06/05/2024) Active Problems Problem Noted Date Diagnosed Date [...] as of this encounter (statuses as of 06/05/2024) Resolved Problems Problem Noted Date Diagnosed Date [...] as of this encounter (statuses as of 06/05/2024) Immunizations Name Administration Dates Next Due COVID-19 [...] 06/07/2024 11:00 AM EDT Office Visit Pharmacy, [address] [place] [address] [place] [address] 06/11/2024 9:00 AM EDT Office Visit Gastroenterolog y, [facility] [place] [address] Ren Pineda CRNP 132 [facility] [place] [address] 06/18/2024 8:30 AM EDT Appointment Interventional Radiology [facility], [facility] 1st Floor [address] [place] [address] 06/24/2024 8:20 AM EDT Office Visit Family Medicine [address] [place] [address] Krystian Palomo MD [address] [place] [address] [place] [address] 07/03/2024 1:30 PM EDT Hospital Encounter ENDO [facility], Endoscopy Room [facility] [address] [place] [address] Jayla Armstrong MD [address] [place] [address] 07/03/2024 1:30 PM EDT - 07/03/2024 2:00 PM EDT Surgery ENDO [facility], Endoscopy Room [facility] [address] [place] [address] Jayla Armstrong MD [address] [place] [address] ESOPHAGOGASTRODUODENOSCOPY (EGD), FLEXIBLE, TRANSORAL, DIAGNOSTIC 07/08/2024 11:45 AM EDT Imaging [facility]nd [facility] [place] [phone] Gw, Excess Time Radiology [address] [place] [address] Scheduled Procedures Name Priority Associated Diagnoses Date/Ti [...] this encounter Medical Devices Implanted Type Area Dealer Card Room Device Identifier Shelf Expiration Date Model / Serial / Lot Lipiodol Injection - [id number] Implanted:Qty: 1 on 08/02/[address] [facility] [employer] 04/28/2026 [id number] Syr Pf 2ml Embospheres 100-300 - [id number] Implanted:Qty: 1 on 08/02/[address] [facility] [employer] [id number] 02/26/2026 S220GH / / [id number] Syr Pf 2ml Embospheres 100-300 - [id number] Implanted:Qty: 1 on 04/11/[address] [facility] [employer] [id number] 12/27/2026 S220GH / / [id number] Lipiodol Injection - [id number] Implanted:Qty: 1 on 04/11/[address] [facility] [place] [id number] 1 -2 / / documented as of this encounter Procedures Procedure Name Priority Date/Time Associated Diagnosis Comments CHEMISTRY-OUTSIDE Routine 05/30/2024 XR CHEST 1 VIEW Routine 05/28/2024 documented in this encounter Results * (ABNORMAL) CHEMISTRY-OUTSIDE (05/30/2024) Not all results display below - see scan for full detail OUTSIDE LAB (SEE SCANNED REPORT) Comment:SCAN INCLUDES - INPT LABS: CBC, CMP CREATININE-OUTSID E LAB 0.76 0.6 - 1.4 MG/DL OUTSIDE LAB (SEE SCANNED REPORT) EGFR-OUTSIDE LAB 99.9 ML/MIN/1.7 3M2 OUTSIDE LAB (SEE SCANNED REPORT) POTASSIUM-OUTSIDE LAB 4.2 3.5 - 5.1 MMOL/L OUTSIDE LAB (SEE SCANNED REPORT) GLUCOSE-OUTSIDE LAB 118(A) 70 - 99 MG/DL OUTSIDE LAB (SEE [...] LAB OUTSIDE LAB (SEE SCANNED REPORT) HEMOGLOBIN, [id number] LAB OUTSIDE LAB (SEE SCANNED REPORT) PHOSPHORUS-OUTSID E LAB OUTSIDE LAB (SEE SCANNED REPORT) PTH-OUTSIDE LAB OUTS [place] LAB (SEE SCANNED REPORT) MICROALBUMIN RATIO-OUTSIDE LAB OUTSIDE LA B (SEE SCANNED REPORT) PROTEIN, UA-OUTSIDE LAB OUTSIDE LAB (SEE SCANNED REPORT) HGB 8.7(A) 14.0 - 18.0 G/DL OUTSIDE LAB (SEE SCANNED REPORT) 05/30/2024 Suzie Brooks MD LABORATORY OUTSIDE LAB (SEE SCANNED REPORT) * XR CHEST 1 VIEW (05/28/2024) Anatomical Region Laterality Modality Chest Other 05/28/2024 Lucio Barros MD RADIOLOGY (RAD GENER AL) documented in this encounter Care Teams Floor Covering Installer Relationship Specialty Start Date End Date Krystian Palomo MD [address] [place] [address] [place] [phone] PCP - General Family Medicine 12/22/23 documented as of this encounter
--- OUTSIDE RECORDS SUMMARY | 2024-06-21 23:44 | External Medical Summary ---
Author Name Unknown Address Unknown Organization K01:LABORATORY [facility] - [facility] [address] [facility] [address] [facility] [address] Laboratory Report Ordering Provider Test Date Status HERIBERTO RAO 06/04/2024 10:49:42 Final Observation Date Value Abnormality Reference (Units ) Status WBC, Total 06/04/2024 10:49:42 4.49 4.00-10.80 (K/uL) Final RBC 06/04/2024 10:49:42 2.79 4.50-5.25 (M/uL) Final Hemoglobin 06/04/2024 10:49:42 10.5 Below low normal 14.0-16.8 (g/dL) Final HCT 06/04/2024 10:49:42 32.2 Below low normal 40.0-48.4 (%) Final MCV 06/04/2024 10:49:42 115.4 82.0-99.5 (fL) Final MCH 06/04/2024 10:49:42 37.6 27.0-34.0 (pg) Final MCHC 06/04/2024 10:49:42 32.6 32.0-36.0 (g/dL) Final RDW 06/04/2024 10:49:42 17.2 11.5-15.5 (%) Final Platelets 06/04/2024 10:49:42 76 Below low normal 140-400 (K/uL) Final MPV 06/04/2024 10:49:42 12.1 6.6-11.1 (fL) Final Nucleated erythrocytes/100 leukocytes [Ratio] in Blood by Automated count 06/04/2024 10:49:42 0 <=0 (/100 WBCs) Final Performing Location LABORATORY [facility] - [facility] [place] [address]
--- OUTSIDE RECORDS SUMMARY | 2024-06-21 23:44 | External Medical Summary | Summary of Care ---
Author Name Unknown Organization [facility] Address [address] [facility] [place] [address] Phone [phone] Care Team Providers Care Plastic Manager Name Role Phone Krystian Palomo MD Primary Care Provide r Reason for Visit * Reason Comments Outpatient Testing Encounter Details Date Type Department Care Team (Late st Contact Info) Description 06/04/2024 10:40 AM EDT Laboratory Laboratory [address] [place] [phone] [facility] [address] [place] [address] Cirrhosis of liver with ascites, unspecified hepatic [...] 100 mL 10 01/24/2024 Active Dexcom G7 Certified Home Health Aide Device Use as directed to monitor blood [...] daily. 15 mL 3 04/19/2024 Active Pen [place] 32G X 4 MM Use as directed. [...] 07/05/2023 Hepatic encephalopathy 03/28/2022 Overview: admitted [facility], ammonia 110 Aortic stenosis, moderate [...] 06/07/2024 11:00 AM EDT Office Visit Pharmacy, [address] [place] [address] [place] [address] 06/11/2024 9:00 AM EDT Office Visit Gastroenterolog y, [facility] 132 [facility] [place] [address] Ren Pineda CRNP 132 [facility] [place] [address] 06/18/2024 8:30 AM EDT Appointment Interventional Radiology [facility] [place] 1st Floor [facility] [phone] 06/24/2024 8:20 AM EDT Office Visit Family Medicine [address] [place] [phone] Krystian Palomo MD [address] [place] [address] [place] [address] 07/03/2024 1:30 PM EDT Hospital Encounter ENDO [facility], Endoscopy Room [facility] [address] [place], [place] [address] Jayla Armstrong MD [address] [place] [address] 07/03/2024 1:30 PM EDT - 07/03/2024 2:00 PM EDT Surgery ENDO [facility], Endoscopy Room [facility] [address] [place], [place] [address] Jayla Armstrong MD [address] [place] [address] ESOPHAGOGASTRODUODENOSCOPY (EGD), FLEXIBLE, TRANSORAL, DIAGNOSTIC 07/08/2024 11:45 AM EDT Imaging [facility] 2nd Floor Cardiology, [place] [facility] [place] [phone] Gw, Excess Time Radiology [facility] [place] [address] Pending Results Name Type Priority Associated Diagnoses Date /Time BASIC METABOLIC PANEL Lab Routine Cirrhosis of liver with ascites, unspecified hepatic cirrhosis type (HCC) 06/04/2024 10:49 AM EDT PT INR Lab Routine Cirrhosis of liver with ascites, unspecified hepatic cirrhosis type (HCC) 06/04/2024 10:49 AM EDT CBC WITH WBC DIFFERENTIAL Lab Routine Cirrhosis of liver with ascites, unspecified hepatic cirrhosis type (HCC) 06/04/2024 10:49 AM EDT CBC Lab Routine Cirrhosis of liver with ascites, unspecified hepatic cirrhosis type (HCC) 06/04/2024 10:49 AM EDT DIFFERENTIAL, AUTOMATED Lab Routine Cirrhosis of liver with ascites, unspecified hepatic cirrhosis type (HCC) 06/04/2024 10:49 AM EDT APTT Lab Routine Cirrhosis of liver with ascites, unspecified hepatic cirrhosis type (HCC) 06/04/2024 10:49 AM EDT Scheduled Procedures Name Priority Associated [...] 09/18/2023, Additional history exists GFR 04/11/2025 04/11/2024, 04/1 10/2023, 01/24/2024, Additional history exists Lipid Panel [...] encounter Medical Devices Implanted Type Area Lead Sewage Plant Operator Device Identifier Shelf Expiration Date Model / Serial / Lot Lipiodol Injection - [id number] Implanted:Qty: 1 on 08/02/2023 at [facility] [employer] 04/28/2026 [id number] Syr Pf 2ml Embospheres 100-300 - [id number] Implanted:Qty: 1 on 08/02/2023 at [facility] [employer] [id number] 02/26/2026 S220GH / / [id number] Syr Pf 2ml Embospheres 100-300 - [id number] Implanted:Qty: 1 on 04/11/2024 at [facility] [employer] [id number] 12/27/2026 S220GH / / [id number] Lipiodol Injection - [id number] Implanted:Qty: 1 on 04/11/2024 at [facility] [employer] [id number] -2 documented as of this encounter Visit Diagnoses Diagnosis Cirrhosis of liver with ascites, unspecified hepatic cirrhosis type (HCC) Rios's esophagus documented in this encounter Care Teams Plastic Manager Relationship Specialty Start Date End Date Krystian Palomo MD [address] [place] [address] [place] [address] PCP - General Family Medicine 12/22/23 documented as of this encounter
--- OUTSIDE RECORDS SUMMARY | 2024-06-21 23:44 | External Medical Summary ---
Author Name Unknown Address Unknown Organization K01:[facility]ORY [facility] [place] - [address] [facility] [address] [place] [address] Laboratory Report Ordering Provider Test Date Status HERIBERTO RAO 06/04/2024 10:49:42 Final Observation Date Value Abnormality Reference (Units ) Status BUN 06/04/2024 10:49:42 15 6-20 (mg/dL) Final Creatinine 06/04/2024 10:49:42 1.0 0.6-1.2 (mg/dL) Final Glomerular filtration rate/1.73 sq M.predicted [Volume Rate/Area] in Serum, Plasma or Blood by Creatinine-based formula (CKD-EPI) 06/04/2024 10:49:42 86 >=60 (mL/min) Final eGFR is calculated based on the CKD-EPI 2020 equation. Sodium 06/04/2024 10:49:42 133 Below low normal 135 -146 (mmol/L) Final Potassium 06/04/2024 10:49:42 4.3 3.5-5.1 (m mol/L) Final Cl 06/04/2024 10:49:42 98 98-107 (mm ol/L) Final CO2 06/04/2024 10:49:42 24 22-32 (mmo l/L) Final Anion gap 06/04/2024 10:49:42 11 7-15 (mmol /L) Final Glucose 06/04/2024 10:49:42 192 Above high normal 70 -120 (mg/dL) Final Calcium 06/04/2024 10:49:42 9.2 8.4-10.2 ( mg/dL) Final Performing Location [facility] [place] - [address] [place] [address]
--- OUTSIDE RECORDS SUMMARY | 2024-06-21 23:44 | External Medical Summary | Summary of Care ---
Author Name Unknown Organization [facility] Address [address] [place] [facility] [address] Phone [phone] Care Team Providers Care Dowel Machine Operator Name Role Phone Krystian Palomo MD Primary Care Provide r Encounter Details Date Type Department Care Team (Late st Contact Info) Description 05/26/2024 Result Scan Unspecified Department <No scans attached> Allergies Active Allergy Reactions [...] 100 mL 10 01/24/2024 Active Dexcom G7 Advertising Representative Device Use as directed to monitor blood [...] daily. 15 mL 3 04/19/2024 Active Pen [place] 32G X 4 MM Use as directed. Use to inject insulin once daily. 100 Each 3 04/19/2024 Active documented as of this encounter (statuses as of 06/05/2024) Active Problems Problem Noted Date Diagnosed Date BPH without obstruction/lower urinary tract symp toms 12/22/2023 BMI 36.0-36.9,adult 10/24/2023 Overview: 266 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 07/05/2023 Hepatic encephalopathy 03/28/2022 Overview: admitted [facility], ammonia 110 Aortic stenosis, moderate 01/21/2022 Thrombocytopenia [...] 06/07/2024 11:00 AM EDT Office Visit Pharmacy, [address] [place] [address] [place] [address] 06/11/2024 9:00 AM EDT [facility] [place] [address] Ren Pineda CRNP 132 [facility] [place] [address] 06/18/2024 8:30 AM EDT Appointment Interventional Radiology [facility] [facility], [facility] 1st Floor [address] [address] 06/24/2024 8:20 AM EDT Office Visit Family Medicine [address] [place] [address] Krystian Palomo MD [address] [place] [address] [place] [address] 07/03/2024 1:30 PM EDT Hospital Encounter [facility]O [facility], Endoscopy Room [facility] [place] [phone] Jayla Armstrong MD 310 [facility] [place] [address] 07/03/2024 1:30 PM EDT - 07/03/2024 2:00 PM EDT Surgery [facility], [facility] [place] [phone] Jayla Armstrong MD [address] [place] [address] ESOPHAGOGASTRODUODENOSCOPY (EGD), FLEXIBLE, TRANSORAL, DIAGNOSTIC 07/08/2024 11:45 AM EDT Imaging [facility] 2nd Floor Cardiology, [place] [address] [facility] [place] [phone] Gw, Excess Time Radiology [address] [place] [address] Scheduled Procedures Name Priority Associated Diagnoses Date/Ti [...] 03/16/2021, Additional history exists HbA1c 10/19/2024 04/19/2024, 030 05/2024, 09/18/2023, Additional history exists GFR 06/04/2025 06/04/2024, 080 12/2023, 05/30/2024, Additional history exists Lipid Panel 09/18/2028 09/18/2023, 08/2 12/2022, 03/09/2022, Additional history exists Colonoscopy 01/10/2029 01/11/2024, 0 06/2019, 05/21/2010 Colorectal Cancer Screening 01/10/2029 Hepatitis [...] this encounter Medical Devices Implanted Type Area Drill Grinder Device Identifier Shelf Expiration Date Model / Serial / Lot Lipiodol Injection - [id number] Implanted:Qty: 1 on 08/02/2023 at [facility] [employer] 04/28/2026 [id number] 1 -2 [id number] Syr Pf 2ml Embospheres 100-300 - [id number] Implanted:Qty: 1 on 08/02/2023 at [facility] [employer] [id number] 02/26/2026 S220GH / / [id number] Syr Pf 2ml Embospheres 100-300 - [id number] Implanted:Qty: 1 on 04/11/2024 at [facility] [employer] [id number] 12/27/2026 S220GH / / [id number] Lipiodol Injection - [id number] Implanted:Qty: 1 on 04/11/2024 at [facility] [employer] 74726-540 1 -2 / / documented as of this encounter Procedures Procedure Name Priority Date/Time Associated Diagnosis Comments OUTSIDE LAB RESULTS 05/27/2024 RADIOLOGY SCANNED RESULT 05/26/2024 documented in this encounter Results * OUTSIDE LAB RESULTS (05/27/2024) 05/27/2024 No Physician Data Unknown LABORATORY * RADIOLOGY SCANNED RESULT (05/26/2024) 05/26/2024 No Physician Data Unknown DIAGNOSTIC RAD IOLOGY SERVICES documented in this encounter Care Teams Dowel Machine Operator Relationship Specialty Start Date End Date Krystian Palomo MD [address] [place] [address] [place] [address] PCP - General Family Medicine 12/22/23 documented as of this encounter
--- OUTSIDE RECORDS SUMMARY | 2024-06-21 23:44 | External Medical Summary | Summary of Care ---
Author Name Unknown Organization [facility] Address [address] [facility] [place] [address] Phone [phone] Care Team Providers Care Finish Mender Name Role Phone Krystian Palomo MD Primary Care Provide r Reason for Visit * Reason Comments Follow Up Pt here for 1 month f/u for cirrhosis. Pt states he was admitted to [facility] for a couple of days about 3 weeks ago for increased ammonia level. 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 10/12/20 21 Active Vitamin C 1000 MG Oral Tablet daily . 10/12/20 21 Active Lactulose 10 GM/15ML Oral Solution (Constulose)Indica tions:Hepatic encephalopathy (HCC) TAKE 45ML THREE TIMES DAILY,IN THE MORNING, AT NOON, AND BEDFORE BEDTIME 4050 mL 5 11/07/19 23 Active Atorvastatin Calcium 20 MG Oral [...] day. 90 Capsule 3 07/17/20 23 Active Tamsulosin HCl 0.4 MG Oral Capsule (Flomax)Indication s:Urinary retention One daily 30 Capsule 5 10/24/20 23 Active Albumin Human 25 % Intravenous Solution Give 50Gms after paracentesis (if more than 5L are removed). May run at 100/hr. 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 Change every 10 days. 3 Each 03/06/20 24 Active metFORMIN HCl 500 MG Oral Tablet (Glucophage)Indica tions:Type 2 diabetes mellitus with hemoglobin A1c goal of less than 7.0% (HCC) TAKE ONE TABLET BY MOUTH TWICE DAILY WITH MORNING AND EVENING MEALS 180 Tablet 3 05/31/20 22 024 Discontinued(Me dication List Clean Up) Glimepiride 1 MG Oral Tablet (Amaryl) TAKE ONE TABLET BY MOUTH EVERY DAY WITH THE FIRST MAIN MEAL OF THE DAY FOR DIABETES 90 Tablet 1 11/28/19 23 024 Discontinued(Me dication List Clean Up) Mupirocin 2 % External Ointment (Bactroban) Apply topically to affected area 3 times a day. At hospital discharge 08/29/20 23 024 Discontinued(Re fill) Lisinopril 5 MG Oral Tablet (Prinivil) Take 1 Tablet by mouth in the morning. In the morning.. 10/26/20 23 024 Discontinued(Me dication List Clean Up) Furosemide 40 MG Oral Tablet (Lasix) Take 1 Tablet by mouth in the morning. 30 Tablet 3 11/09/19 24 024 Discontinued Carvedilol 3.125 MG Oral Tablet (Coreg)Indications :Essential (primary) hypertension Take 2 Tablets by mouth in the morning and 2 Tablets before bedtime. With food.. 180 Tablet 1 03/04/20 24 024 Discontinued(Me dication List Clean Up) documented as of this encounter (statuses as of 06/06/2024) Active Problems Problem Noted Date Diagnosed Date BPH without obstruction/lower urinary tract symp toms 12/22/2023 BMI 36.0-36.9,adult 10/24/2023 Overview: 266 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 07/05/2023 Hepatic encephalopathy 03/28/2022 Overview: admitted [facility], [...] as of this encounter (statuses as of 06/06/2024) Resolved Problems Problem Noted Date Diagnosed Date [...] as of this encounter (statuses as of 06/06/2024) Immunizations Name Administration Dates Next Due COVID-19 [...] Progress Notes * Ren Pineda CRNP - 06/06/2024 8:46 AM EDT MELD 3.0: 21 at 04/11/2024 7:09 AM Calculated from: Serum Creatinine: 1.0 mg/dL at 04/11/2024 7:09 AM Serum Sodium: 129 mmol/L at 04/11/2024 7:09 AM Total Bilirubin: 3.4 mg/dL at 04/11/2024 7:09 AM Serum Albumin: 2.6 g/dL at 04/11/2024 7:09 AM INR(ratio): 1.5 at 04/11/2024 7:09 AM Age at listing (hypothetical): 58 years Sex: Male at 04/11/2024 7:09 AM Being evaluated by liver transplant service. Seen most recently in Aug 2023. MELD also 21 at that time. * Ren Pineda CRNP - 03/15/2024 8:01 AM EDT CC: Cirrhosis w Hepatic Encephalopathy, hospital follow up HPI: Recall that Mr. Lloyd Spencer is a 58 year old male pt of Stanford Mays MD with a hx of , obesity, DM-2, gout, hyperlipidemia, anaplasmosis (2019). He is a [facility] employee currently on disability for cirrhosis. Dx'ed [...] post bland embolization CTAP w IV at [facility] 03/06/25: [facility] 1. There are scattered gas fluid levels [...] paracentesis 01/24/24 removal of 5.5L U/S at [facility] 01/3024 w/o significant ascites to undergo paracentesis HCC LIRADs5 liver lesion underwent bland embolization in Aug 2023 Hepatic Encephalopathy: Hospitalized at [facility] on 02/27 for hepatic encephalopathy Rifaximin 550mg [...] otherwise normal MELD 25 from labs at [facility] 2 wks ago: Na 127, Cr1.26, INR [...] test - pt will stop at the [facility] cardiology desk and ask to reschedule. - [...] of HCC. Had CT w IV at [facility] 2 wksago w/o mention of lesions. Recheck [...] cirrhosis. Pt states he was admitted to [facility] for a couple of days about3 weeks ago for increased ammonia level. documented in this encounter Plan of Treatment Upcoming Encounters Date Type Department Care Team (Latest Contact Info) Description 06/07/2024 11:00 AM EDT Office Visit Pharmacy, [address] [place] [address] [place] [address] 06/11/2024 9:00 AM EDT Office Visit Gastroenterolog , [facility] [address] [facility] [place] [address] Ren Pineda CRNP 132 [facility] [place] [address] 06/18/2024 8:30 AM EDT Appointment [place] [facility] [place] [address] 1[address] Floor [address] [facility] [place] [address] 06/24/2024 8:20 AM EDT Office Visit Family Medicine [address] [place] [address] Krystian Palomo MD [address] [place] [address] [place] [address] 07/03/2024 1:30 PM EDT Hospital Encounter ENDO [facility], Endoscopy Room [facility] [address] [place] [address] Jayla Armstrong MD [address] [place] [address] 07/03/2024 1:30 PM EDT - 07/03/2024 2:00 PM EDT Surgery ENDO [facility], Endoscopy Room [facility] [address] [place] [phone] Jayla Armstrong MD [address] [place] [address] ESOPHAGOGASTRODUODENOSCOPY (EGD), FLEXIBLE, TRANSORAL, DIAGNOSTIC 07/08/2024 11:45 AM EDT Imaging [facility] 2nd [facility] [address] [place] [phone] Gw, Excess Time Radiology [address] [place] [address] Scheduled Procedures Name Priority Associated Diagnoses Date/Ti [...] this encounter Medical Devices Implanted Type Area Sand System Operator Device Identifier Shelf Expiration Date Model / Serial / Lot Lipiodol Injection - [id number] Implanted:Qty: 1 on 08/02/2023 at [facility] [employer] 04/28/2026 13163-025 1 -[id number] Syr Pf 2ml Embospheres 100-300 - [id number] Implanted:Qty: 1 on 08/02/2023 at [facility] [employer] [id number] 02/26/2026 S220GH / / [id number] Syr Pf 2ml Embospheres 100-300 - [id number] Implanted:Qty: 1 on 04/11/2024 at [facility] [employer] [id number] 12/27/2026 S220GH / / [id number] Lipiodol Injection - [id number] Implanted:Qty: 1 on 04/11/2024 at [facility] [employer] [id number] - documented as of this encounter Visit Diagnoses Diagnosis 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
--- OUTSIDE RECORDS SUMMARY | 2024-06-21 23:44 | External Medical Summary | Summary of Care ---
Author Name Unknown Organization [facility] Address [address] [facility] [address] Phone [phone] Care Team Providers Care Junior Paralegal Name Role Phone Krystian Palomo MD Primary Care Provide r Encounter Details Date Type Department Care Team (Late st Contact Info) Description 06/05/2024 Orders Only Family Medicine [address] [place] [address] Krystian Palomo MD [address] [place] [address] [place] [address] Allergies Active Allergy Reactions Criticality Noted Date [...] 100 mL 10 01/24/2024 Active Dexcom G7 Hazardous Waste Management Specialist Device Use as directed to monitor blood [...] daily. 15 mL 3 04/19/2024 Active Pen Henderson 32G X 4 MM Use as directed. [...] GONZALES 07/05/2023 Hepatic encephalopathy 03/28/2022 Overview: admitted [facility], ammonia 110 Aortic stenosis, moderate [...] 06/07/2024 11:00 AM EDT Office Visit Pharmacy, [address] [place] [address] [place] [address] 06/11/2024 9:00 AM EDT Office Visit Gastroenterolog y, [facility] [address] [facility] [place] [address] Ren Pineda CRNP 132 [facility] [place] [address] 06/18/2024 8:30 AM EDT Appointment Interventional Radiology [facility], [facility] 1st Floor [address] [place] [address] 06/24/2024 8:20 AM EDT Office Visit Family Medicine [address] [place] [phone] Krystian Palomo MD [address] [place] [address] [place] [address] 07/03/2024 1:30 PM EDT Hospital Encounter ENDO [facility], Endoscopy Room [facility] [address] [place] [address] Jayla Armstrong MD [address] [place] [address] 07/03/2024 1:30 PM EDT - 07/03/2024 2:00 PM EDT Surgery ENDO [facility], Endoscopy Room [facility] [address] [place] [address] Jayla Armstrong MD [address] [place] [address] ESOPHAGOGASTRODUODENOSCOPY (EGD), FLEXIBLE, TRANSORAL, DIAGNOSTIC 07/08/2024 11:45 AM EDT Imaging [facility] 2nd [facility] [address] [facility] [place] [phone] Gw, Excess Time Radiology [address] [place] [address] Scheduled Procedures Name Priority Associated Diagnoses Date/Ti [...] history exists GFR 06/04/2025 06/04/2024, 08/0 12/2023, 04/11/2024, Additional history exists Lipid Panel 09/18/2028 09/18/2023, [...] encounter Medical Devices Implanted Type Area Senior Game Designer Device Identifier Shelf Expiration Date Model / Serial / Lot Lipiodol Injection - [id number] Implanted:Qty: 1 on 08/02/2023 at [facility] [employer] 04/28/2026 [id number] 1 [id number] Syr Pf 2ml Embospheres 100-300 - [id number] Implanted:Qty: 1 on 08/02/2023 at [facility] [employer] [id number] 02/26/2026 S220GH / / [id number] Syr Pf 2ml Embospheres 100-300 - [id number] Implanted:Qty: 1 on 04/11/2024 at [facility] [employer] [id number] 12/27/2026 S220GH / / [id number] Lipiodol Injection - [id number] Implanted:Qty: 1 on 04/11/2024 at [facility] [employer] [id number] -2 / / documented as of this encounter Procedures Procedure Name Priority Date/Time Associated Diagnosis Comments CHEMISTRY-OUTSIDE Routine 06/01/2024 documented in this encounter Results * (ABNORMAL) CHEMISTRY-OUTSIDE (06/01/2024) Not all results display below - see scan for full detail OUTSIDE LAB (SEE SCANNED REPORT) Comment:SCAN INCLUDES - E.R. LABS: CBCD, CMP, UA, PT, INR CREATININE-OUTSI DE LAB 1.34 0.6 - 1.4 MG/DL OUTSIDE LAB (SEE SCANNED REPORT) EGFR-OUTSIDE LAB 57.6 ML/MIN/1.73M 2 OUTSIDE LAB (SEE SCANNED REPORT) POTASSIUM-OUTSID E LAB 4.5 3.5 - 5.1 MMOL/L OUTSIDE LAB (SEE SCANNED REPORT) GLUCOSE-OUTSIDE LAB 242(A) 70 - 99 MG/DL OUTSIDE LAB (SEE SCANNED REPORT) HOURS FASTING OUTSID E LAB (SEE SCANNED REPORT) TRIGLYCERIDES-OU TSIDE LAB OUTSIDE LAB (SEE SCANNED REPORT) CHOLESTEROL-OUTS LESLIE LAB OUTSIDE LAB (SEE SCANNED REPORT) HDL-OUTSIDE LAB OUTS LESLIE LAB (SEE SCANNED REPORT) CHOL/HDL RATIO-OUTSIDE LAB OUTSIDE LAB (SEE SCANNED REPORT) LDL (CALCULATED)-OUT SIDE LAB OUTSIDE LAB (SEE SCANNED REPORT) LDL (DIRECT MEASURE)-OUTSIDE LAB OUTSIDE LAB (SEE SCANNED REPORT) HEMOGLOBIN, H1A-CWJFWFT LAB OUTSIDE LAB (SEE SCANNED REPORT) PHOSPHORUS-OUTSI DE LAB OUTSIDE LAB (SEE SCANNED REPORT) PTH-OUTSIDE LAB OUTS LESLIE LAB (SEE SCANNED REPORT) MICROALBUMIN RATIO-OUTSIDE LAB OUTSIDE LAB (SEE SCANNED REPORT) PROTEIN, UA-OUTSIDE LAB NEGATIVE NEGATIVE OUTSIDE LAB (SEE SCANNED REPORT) HGB 9.6(A) 14.0 - 18.0 G/DL OUTSIDE LAB (SEE SCANNED REPORT) 06/01/2024 History Per Patient LABORATORY OUTSIDE LAB (SEE SCANNED REPORT) documented in this encounter Care Teams Junior Paralegal Relationship Specialty Start Date End Date Krystian Palomo MD [address] [place] [address] [place] [address] PCP - General Family Medicine 12/22/23 documented as of this encounter
--- OUTSIDE RECORDS SUMMARY | 2024-06-21 23:44 | External Medical Summary | Summary of Care ---
Author Name Unknown Organization [facility] Address [address] [place] [place] [address] Phone [phone] Care Team Providers Care Sweat Band Separator Name Role Phone Krystian Palomo MD Primary Care Provide r Encounter Details Date Type Department Care Team (Late st Contact Info) Description 06/01/2024 Result Scan Unspecified Department <No scans attached> [...] 100 mL 10 01/24/2024 Active Dexcom G7 Physiologist Device Use as directed to monitor blood [...] daily. 15 mL 3 04/19/2024 Active Pen St[place] 32G X 4 MM Use as directed. [...] 07/05/2023 Hepatic encephalopathy 03/28/2022 Overview: admitted [facility], ammonia 110 Aortic stenosis, moderate 01/21/2022 [...] 11:00 AM EDT Office Visit Pharmacy, [address] [place] [address] [place] [address] 06/11/2024 9:00 AM EDT Office Visit Gastroenterolog y, [facility] [place] [address] Ren Pineda CRNP 132 [facility] [place] [address] 06/18/2024 8:30 AM EDT Appointment Interventional [place] [facility] [place] [facility] 1st Floor [address] [place] [address] 06/24/2024 8:20 AM EDT Office Visit Family Medicine [address] [place] [phone] Krystian Palomo MD [address] [place] [address] [place] [address] 07/03/2024 1:30 PM EDT Hospital Encounter ENDO [facility], Endoscopy Room [facility] [address] [place] [phone] Jayla Armstrong MD [address] [place] [address] [place] [phone] 07/03/2024 1:30 PM EDT - 07/03/2024 2:00 PM EDT Surgery ENDO [facility], Endoscopy Room [facility] [address] [place] [phone] Jayla Armstrong MD [address] [place] [address] ESOPHAGOGASTRODUODENOSCOPY (EGD), FLEXIBLE, TRANSORAL, DIAGNOSTIC 07/08/2024 11:45 AM EDT Imaging [facility]nd [facility] [address] [place] [phone] Gw, Excess Time Radiology [address] [place] [address] Scheduled Procedures Name Priority Associated Diagnoses Date/Ti [...] this encounter Medical Devices Implanted Type Area Fish Processing Supervisor Device Identifier Shelf Expiration Date Model / Serial / Lot Lipiodol Injection - [id number] Implanted:Qty: 1 on 08/02/2023 at [facility] [employer] 04/28/2026 [address] 1 [id number] Syr Pf 2ml Embospheres 100-300 - [id number] Implanted:Qty: 1 on 08/02/2023 at [facility] [employer] [id number] 02/26/2026 S220GH / / [id number] Syr Pf 2ml Embospheres 100-300 - [id number] Implanted:Qty: 1 on 04/11/2024 at [facility] [employer] [id number] 12/27/2026 S220GH / / [id number] Lipiodol Injection - [id number] Implanted:Qty: 1 on 04/11/2024 at [facility] [employer] [id number] -2 / / documented as of this encounter Procedures Procedure Name Priority Date/Time Associated Diagnosis Comments RADIOLOGY SCANNED RESULT 06/01/2024 documented in this encounter Results * RADIOLOGY SCANNED RESULT (06/01/2024) 06/01/2024 No Physician Data Unknown DIAGNOSTIC RAD IOLOGY SERVICES documented in this encounter Care Teams Sweat Band Separator Relationship Specialty Start Date End Date Krystian Palomo MD [address] [place] [address] [place] [phone] PCP - General Family Medicine 12/22/23 documented as of this encounter
--- OUTSIDE RECORDS SUMMARY | 2024-06-21 23:44 | External Medical Summary ---
Author Name Unknown Address Unknown Organization K01:LABORATORY [facility] [place] - [address] [place] [address] Laboratory Report Ordering Provider Test Date Status HERIBERTO RAO 06/04/2024 10:49:57 Final Anticoagulation may affect t esting. Refer to [employer] Test Catalog for a list of effects. Observation Date Value Abnormality Reference (Units ) Status aPTT panel - Platelet poor plasma 06/04/2024 10:49:57 39 Above high normal 21-38 (seconds) Final Performing Location LABORATORY [facility] [place] - [address] [place] [address]
[2024-06-22 00:28] LABS: Appearance Urine Clear (Clear); Bilirubin Urine Negative (Negative); Blood Urine Negative (Negative); Color Urine Yellow; Glucose Urine UA Trace (Negative); Ketones Urine Negative (Negative); Leukocyte Esterase Urine Negative (Negative); Nitrite Urine Negative (Negative); Protein Urine Negative (Negative); Specific Gravity Urine 1.042 (1.000-1.030); Urobilinogen Urine Negative (Negative); pH Urine 5.5 (4.5-7.5)
[2024-06-22] MEDS: INSULIN ASPART PER UNIT CHARGE SC STA (01:17)
--- NOTE | 2024-06-22 04:22 | CT Scan Report ---
Exam(s): CTA CHEST IV Amt: 119 cc opti 320 EXAM: CT Angiography Chest With Intravenous Contrast CLINICAL HISTORY: Reason for exam: sob. TECHNIQUE: Axial computed tomographic angiography images of the chest with intravenous contrast. CTDI is 28 mGy and DLP is 1049 mGy-cm. Automated exposure control was utilized for the study. A dose lowering technique was utilized adhering to the principles of ALARA. MIP reconstructed images were created and reviewed. COMPARISON: X-ray chest: 06/21/2024 FINDINGS: Limited exam due to suboptimal IV contrast bolus timing and Motion-induced image degradation. Pulmonary arteries: No pulmonary embolism to the level of segmental branches. Aorta: No acute findings. No thoracic aortic aneurysm. No thoracic aortic dissection Lungs: Central airways are patent. Moderate diffuse bronchial wall thickening. Centrilobular emphysema No mass. No consolidation. Pleural space: No significant effusion. No pneumothorax. An elevated left hemidiaphragm. Heart: Mild/moderate cardiomegaly. No significant pericardial effusion. No evidence of RV dysfunction. Bones/joints: No acute fracture. No dislocation. Anteriorly flowing/bulky marginal osteophytes of the mid/lower thoracic spine. Soft tissues: Unremarkable. Lymph nodes: Small reactive mediastinal lymph nodes. No lymphadenopathy by CT size criteria. Other findings: . Diffuse fatty infiltration of the liver and pancreas.. Posteriorly right hepatic lobe coarse calcifications. Perihepatic small ascites. Centrally mesenteric vs peripancreatic head fat stranding? Abnormal appearing visualized colon with liquid stool. A few small nonobstructive right renal calculi IMPRESSION: No pulmonary embolism to the level of segmental branches. No aortic aneurysm or dissection. Centrilobular pulmonary emphysema. Moderate diffuse bronchial wall thickening. Mild/moderate cardiomegaly. Diffuse hepatic/parenchymal fatty infiltration. Small perihepatic ascites. Abnormal appearing visualized colon with liquid stool. Additional findings as described above.. Electronically signed by: Julien Ng MD, DABR 06/22/24 04:21 AM
[2024-06-22 05:13] LABS: Basophils # (auto) 0.08 K/uL (0.00-0.20); Basophils % (auto) 1.3 %; Eosinophils # (auto) 0.17 K/uL (0.00-0.50); Eosinophils % (auto) 2.7 %; Hematocrit (blood only) 26.9 % (42.0-52.0); Hemoglobin 9.7 g/dl (14.0-18.0); Immature Granulocytes # (auto) 0.05 K/uL (0.01-0.20); Immature Granulocytes % (auto) 0.8 %; Lymphocytes # (auto) 0.72 K/uL (1.20-3.40); Lymphocytes % (auto) 11.4 %; Mean Corpuscular Hemoglobin 37.2 pg (25.0-34.0); Mean Corpuscular Hgb Conc 36.1 g/dL (32.0-36.0); Mean Corpuscular Volume 103.1 fL (80.0-100.0); Mean Platelet Volume 11.3 fL (9.4-12.4); Monocytes % (auto) 17.4 %; Neutrophils # (auto) 4.21 K/uL (1.40-6.50); Neutrophils % (auto) 66.4 %; Platelet Count 65 K/uL (130-400); RDW Coefficient of Variation 14.8 % (11.5-14.5); Red Blood Count 2.61 M/uL (4.70-6.10); White Blood Count 6.33 K/ul (4.8-10.8)
[2024-06-22 05:20] LABS: Calcium 7.8 mg/dl (8.6-10.3); Potassium 3.7 mmol/L (3.5-5.1)
[2024-06-22 05:26] LABS: BUN Creatinine Ratio 12.6 (10-20); Creatinine Clr Calc Pharmacy 114.8 ml/min; Est GFR (African American) 109.5 ml/min; Est GFR (Non-African American) 94.5 ml/min
[2024-06-22] MEDS: FUROSEMIDE INJ 20 MG/2 ML VIAL IV ONE (06:28)
--- NOTE | 2024-06-22 08:30 | XRay Report ---
SINGLE VIEW CHEST CLINICAL HISTORY: Dyspnea FINDINGS: 2 AP, portable, upright chest radiographs are compared to study dated 05/28/2024. The examin ation is degraded by portable technique and patient rotation. The cardiomediastinal silhouette is to p normal for projection. The lungs and pleural spaces are clear. No pneumothorax is seen. The bony th orax is grossly intact. IMPRESSION: No active disease in the chest. ACT 112: Negative or not required by law. Electronically signed by: Ruy Ribeiro M.D. 06/22/2024 8:29 AM
[2024-06-22] MEDS: LANTUS PER UNIT CHARGE SC SCH (09:04)
[2024-06-22] MEDS: INSULIN ASPART PER UNIT CHARGE SC SCH (09:04)
[2024-06-22] MEDS: LACTULOSE SYRUP 10 GM/15 ML BTL 960 ML PO SCH (09:06)
[2024-06-22] MEDS: ATORVASTATIN 20 MG TAB PO SCH (09:07)
[2024-06-22] MEDS: allopurinoL 300 MG TAB PO SCH (09:08)
[2024-06-22] MEDS: MULTIVITAMIN TAB PO SCH (09:08)
[2024-06-22] MEDS: TAMSULOSIN HCL 0.4 MG CAP PO SCH (09:09)
[2024-06-22] MEDS: PANTOprazole 40 MG TAB PO SCH (09:09)
[2024-06-22] MEDS: THIAMINE HCL 100 MG TAB PO SCH (09:09)
[2024-06-22] MEDS: rifAXIMin 550 MG TABLET PO SCH (09:09)
[2024-06-22] MEDS: PROMETHAZINE 12.5 MG/50.5 ML BAG IV PRN (09:41)
--- NOTE | 2024-06-22 11:37 | CT Scan Report ---
CT SCAN OF THE BRAIN WITHOUT IV CONTRAST CLINICAL HISTORY: Change in mental status. COMPARISON STUDY: CT of the brain dated 05/26/2024. TECHNIQUE: Unenhanced axial CT scan of the brain is performed from the vertex to the skull base. A d ose lowering technique was utilized adhering to the principles of ALARA. CT DOSE: 625.8 mGy.cm FINDINGS: Brain parenchyma: The brain parenchyma is normal in appearance. There is no hemorrhage, mass effect, or evidence of acute territorial ischemia by CT criteria. Moseley-white matter differentiation is preser farideh. No extra-axial fluid collection is seen. Ventricles, sulci, cisterns: Normal in configuration. Intracranial vasculature: The visualized intracranial vasculature at the skull base is normal in appe arance. Calvarium: Unremarkable. Sinuses and mastoids: The visualized paranasal sinuses are clear. The mastoid air cells are well pneu matized. Orbits: The bony orbits are grossly intact. IMPRESSION: There is no hemorrhage, mass effect, or evidence of acute territorial ischemia by CT isabelle lima. ACT 112: Negative or not required by law. Electronically signed by: Ruy Ribeiro M.D. 06/22/2024 11:35 AM
--- NOTE | 2024-06-22 13:14 | Hospitalist Progress Note ---
Date of Service June 22, 2024 Assessment & Plan (1) Acute hyponatremia: Plan: Acute on chronic hyponatremia Secondary to liver disease, diuretics, GI losses from lactulose, nausea/vomiting Sodium: 124 today Serum osmolality 284 Urine osmolality 587 Urine sodium 73 TSH in May 22 1.8 No improvement of sodium levels with IV fluids Diuretics on hold Currently on fluid restriction Monitor sodium levels closely Will consider nephrology evaluation if no improvement Pancytopenia Chronic Currently no signs of acute bleeding Hemoglobin, platelet count at baseline Monitor CBC GONZALES cirrhosis Hepatocellular carcinoma s/p embolization on 08/02/23 --CT head:There is no hemorrhage, mass effect, or evidence of acute territorial ischemia by CT criteria. --Ammonia: 121>>60 Mild transaminitis secondary to above Titrate lactulose to have 3-4 good bowel movements daily Continue rifaximin Monitor for hepatic encephalopathy Monitor volume status Resume home diuretics as able Pulmonary hypertension Moderate Continue home medications Hyperlipidemia on statin DM II Last HbA1c 8.4 Continue insulin while hospitalized Monitor BGs DVT Px: SCDs Re: Thrombocytopenia CODE STATUS Full code Admission and Anticipated Discharge Date Admission Date: June 21, 2024 Subjective Patient is seen and examined at bedside States having dry mouth Drowsy but oriented during my encounter Denies any nausea, vomiting, chest pain, dyspnea, abdominal pain currently Sodium levels 124 today Review of Systems Review of Systems: All systems reviewed & are unremarkable except as noted in Subjective Physical Exam Physical Exam: Physical Exam: Vitals signs as noted above General Appearance:Moderately built and nourished, no apparent distress, chronic ill appearing Head: normocephalic, Atraumatic Eyes: normal inspection, EOMI Neck: supple, Trachea midline Respiratory/Chest: Normal breath sounds, CTA, No accessory muscle use Cardiovascular: S1, S2, + murmur Abdomen/GI:Soft, Non tender, distended, Bowel sounds present Extremities/Musculoskeletal:normal inspection, Trace edema Neurologic/Psych:AAOX3, grossly no focal neurological deficits Skin: normal color, warm,+Jaundice Results & Data Results & Data Vital Signs (Past 12 Hours) Vital Signs Temp Pulse Pulse Pulse Resp BP BP 06/22/24 11:58 36.7 C 81 18 112/69 06/22/24 11:03 92 H 06/22/24 10:13 36.6 C 88 18 118/80 06/22/24 09:00 18 100/80 06/22/24 06:30 84 18 115/68 06/22/24 06:00 80 13 121/73 06/22/24 05:30 121/60 06/22/24 05:03 76 14 126/63 06/22/24 04:50 36.9 C 78 16 124/84 06/22/24 04:48 06/22/24 04:00 76 14 129/87 06/22/24 03:27 86 17 149/100 H Pulse Ox Pulse Ox O2 Del Method O2 Del Method 06/22/24 11:58 99 Room Air 06/22/24 11:03 06/22/24 10:13 99 Room Air 06/22/24 09:00 99 Room Air 06/22/24 06:30 100 Room Air 06/22/24 06:00 100 Room Air 06/22/24 05:30 06/22/24 05:03 100 06/22/24 04:50 98 Room Air 06/22/24 04:48 99 Room Air 06/22/24 04:00 100 Room Air 06/22/24 03:27 99 Room Air Laboratory Results Short CBC 06/21/24 06/22/24 Range/Units 19:05 04:46 WBC 4.77 L 6.33 (4.8-10.8) K/ul Hgb 10.6 L 9.7 L (14.0-18.0) g/dl Hct 30.4 L 26.9 L (42.0-52.0) % Plt Count 78 L 65 L (130-400) K/uL BMP 06/21/24 06/22/24 06/22/24 19:05 00:24 04:46 Sodium 127 L 125 L 127 L Potassium 3.8 3.7 Chloride 96 L 100 Carbon Dioxide 20 L 22 BUN 13 11 Creatinine 1.02 0.87 Glucose 292 H 117 H Calcium 8.8 7.8 L 06/22/24 11:55 Sodium 124 L Potassium Chloride Carbon Dioxide BUN Creatinine Glucose Calcium Liver Function 06/21/24 Range/Units 19:05 Total Bilirubin 3.9 H (0.2-1.0) mg/dl AST 55 H (13-39) U/L ALT 34 (7-52) U/L Alkaline Phosphatase 109 H (34-104) U/L Albumin 2.9 L (3.4-5.0) gm/dl Urine 06/21/24 Range/Units 23:54 Urine Color Yellow Urine Appearance Clear (Clear) Urine pH 5.5 (4.5-7.5) Ur Specific [place] 1.042 H (1.000-1.030) Urine Protein Negative (Negative) Urine Glucose (UA) Trace H (Negative)
[2024-06-22] MEDS: SODIUM CHLORIDE 0.9% 500 ML IV ONE (19:55)
[2024-06-23] MEDS: SODIUM CHLORIDE 0.9% 500 ML IV ONE (02:16)
[2024-06-23 06:13] LABS: Hematocrit (blood only) 27.9 % (42.0-52.0); Hemoglobin 10.3 g/dl (14.0-18.0); Mean Corpuscular Hemoglobin 37.3 pg (25.0-34.0); Mean Corpuscular Hgb Conc 36.9 g/dL (32.0-36.0); Mean Corpuscular Volume 101.1 fL (80.0-100.0); Mean Platelet Volume 11.4 fL (9.4-12.4); Platelet Count 80 K/uL (130-400); RDW Coefficient of Variation 14.6 % (11.5-14.5); RDW Standard Deviation 54.4 fL (36.4-46.3); Red Blood Count 2.76 M/uL (4.70-6.10); White Blood Count 8.75 K/ul (4.8-10.8)
[2024-06-23 06:24] LABS: Calcium 8.3 mg/dl (8.6-10.3); Creatinine Clr Calc Pharmacy 106.3 ml/min; Est GFR (African American) 102.4 ml/min; Est GFR (Non-African American) 88.4 ml/min; Potassium 4.3 mmol/L (3.5-5.1)
[2024-06-23 06:25] LABS: Albumin Level 2.8 gm/dl (3.4-5.0); Bilirubin Direct 1.1 mg/dl (0-0.2); Bilirubin,Total 4.2 mg/dl (0.2-1.0); Total Protein 6.7 gm/dl (6.0-8.3)
--- NOTE | 2024-06-23 10:38 | Nephrology Consultation ---
Date of Consultation June 23, 2024 Assessment & Plan (1) Acute hyponatremia: acutely worsening hyponatremia w/ presenting sNa 127 on 06/21 at 1900 and drop to 122 24 hrs later, and value at 123 at 0530 today and 122 at 11 AM. suspect hypervolemic etiology after diuretics held but need more data; he endorses symptoms of hypotension and does not appear volume overloaded on exam. Target sNa for tomorrow AM is no more than 128. -strict I/O ordered -needs daily STANDING weight; standing weight only -ordered urine and serum studies for hyponatremia to be completed late this am > uncollected as of 1699 and -tightened FR to 1.5L; may need to be tighter -trial of low dose lasix >> 20 mg IV lasix x 2 today and tomorrow same dose bid17; adjust as needed -will start midodrine 2.5 mg tid for now strictly to help w/ hypotension sx -continue <2 gm daily na diet >repeat bmp ordered for 1829 >>maintain eukalemia >> ordered standing K Care coordinated w/ History of Present Illness Reason for Consultation: hyponatremia Requesting Physician: Dr Delgado Attending Physician: Karsten Delgado MD History of Present Illness 58 y/o M whom I'm asked to see for hyponatremia was admitted 06/21 for same in the setting of cirrhotic liver disease. 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 Admitted here 05/26-05/30/24 for hepatic encephalopathy d/t medication nonadherence. Repeat liver lesion embolization was cancelled on 06/18 d/t unacceptable bilirubin elevation >> GI/liver f/u plan in process. His sNa as OP runs 128-133 since March, most recently 128 on 06/18. His presenting sodium was 127 on 06/21 at 1900; drifted down to 122 last evening 1800; this am it's 123 at 0530. Overnight he had a L of NS total infused. As an OP he takes 40 mg daily lasix and 100 mg daily spironolactone; has not had either since arrival except for 20 mg IV lasix x 1 this am 0530. He is on FR 1.8L; I/O are incomplete. pt evaluated this afternoon >> denies n/v , edema, sob, increasing abdominal girth, new or worrisome voiding concerns, decreased po intake. He endorses some dizziness when getting up to use bathroom and states dizziness takes longer to resolve when ambulating. Allergies Allergy/AdvReac Type Severity Reaction Status Date / Time aspirin Allergy Intermediate NOSE Verified 01/11/24 08:15 BLEEDS--IF TAKES REGULARLY Home Medications Medication Instructions Recorded Confirmed Type allopurinol 300 mg tablet 300 mg PO QAM 06/03/19 06/21/24 History metformin 500 mg tablet 500 mg PO BIDM 06/03/19 06/21/24 History multivitamin 1 tab PO QAM 06/03/19 06/21/24 History atorvastatin 20 mg tablet 20 mg PO QAM 04/21/21 06/21/24 History ascorbic acid (vitamin C) 1,000 mg 1 g PO QAM 08/27/23 06/21/24 History tablet (Vitamin C) tamsulosin 0.4 mg capsule 0.4 mg PO DAILY 10/04/23 06/21/24 History rifaximin 550 mg tablet (Xifaxan) 550 mg PO BID 01/02/24 06/21/24 History furosemide 20 mg tablet 40 mg PO QAM 02/27/24 06/21/24 History omeprazole 20 mg capsule,delayed 20 mg PO QAM 02/27/24 06/21/24 History release spironolactone 25 mg tablet 100 mg PO QAM 02/27/24 06/21/24 History lactulose 20 gram/30 mL oral 45 g (67.5 mL) PO TID Cirrhosis 30 02/29/24 06/21/24 Rx solution days #3,000 mL Lantus Solostar U-100 Insulin 10 unit subcut DAILY 05/26/24 06/21/24 History mupirocin 2 % topical ointment 1 applic EXT TID PRN Wound Care 06/21/24 06/21/24 History Patient History Medical History Pulmonary hypertension Diabetes mellitus NAFLD (nonalcoholic fatty liver disease) Chronic hyponatremia Dizziness r/t the cirrhosis - using a cane at this time. "if i get up to fast". S/P abdominal paracentesis Fracture of rib of right side 2013 Anaplasmosis 2019 Acute hepatic encephalopathy Cardiac murmur HX Hypertension Right rib fracture hx ~. 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 Required: No Beliefs That Will Affect Care: None marital status: Single Current Living Situation: Parent and Family Current Living Situation Comment: With brother and mother Feels Safe at Home: Yes Safety Concerns: Feels Safe At This Time Assistive Devices: Cane and Glasses Review of Systems 2 Review of Systems: All systems reviewed & are unremarkable except as noted in HPI & below Physical Exam 2 Constitutional: well developed, well nourished, + obese and cooperative; no acute distress Eyes: EOM intact bilaterally ENMT: Ears: no external ear abnormality Nose: no external nose abnormality Mouth: + dry oral mucous membranes Neck: no nuchal rigidity Respiratory: normal respiratory effort Auscultation: + diminished lung sounds Cardiovascular: RRR, no murmur, no edema Gastrointestinal (Abdomen): Inspection/Auscultation: normal bowel sounds; no abdominal edema Percussion/Palpation: abdomen soft; abdomen nontender and no ascites Musculoskeletal: Extremities: strength 5/5 throughout Skin: no rashes, warm and dry Neurologic: bradford, fluent speech, no tremor Psychiatric: Orientation: alert and oriented x 3 Results & Data Vital Signs (Past 12 Hours) Vital Signs Temp Pulse Pulse Resp BP Pulse Ox O2 Del Method 06/23/24 07:55 85 06/23/24 07:52 36.6 C 94 H 17 112/71 99 Room Air 06/23/24 03:17 36.8 C 108 H 16 151/74 H 99 Room Air 06/22/24 23:35 36.8 C 88 18 116/76 100 Room Air Laboratory Results 06/23/24 05:27 06/23/24 05:27 sOSM 284 on 06/21 UA SG 1042, uOSM 587, Pascale 73 all same day
[2024-06-23 11:36] LABS: BUN Creatinine Ratio 17.4 (10-20); Calcium 8.7 mg/dl (8.6-10.3); Creatinine Clr Calc Pharmacy 116.5 ml/min; Est GFR (Non-African American) 94.9 ml/min; Potassium 4.1 mmol/L (3.5-5.1)
--- NOTE | 2024-06-23 14:43 | Hospitalist Progress Note ---
Date of Service June 23, 2024 Assessment & Plan (1) Acute hyponatremia: Plan: Acute on chronic hyponatremia Secondary to liver disease, diuretics, GI losses from lactulose, nausea/vomiting Sodium: 122 today Serum osmolality 284 Urine osmolality 587 Urine sodium 73 TSH in May 22 1.8 No improvement of sodium levels with IV fluids Diuretics on hold Continue fluid restriction Monitor sodium levels closely Appreciate nephrology input Hold home diuretics for now Pancytopenia Chronic Currently no signs of acute bleeding Hemoglobin, platelet count at baseline Monitor CBC GONZALES cirrhosis Hepatocellular carcinoma s/p embolization on 08/02/23 --CT head:There is no hemorrhage, mass effect, or evidence of acute territorial ischemia by CT criteria. --Ammonia: 121>>60 Mild transaminitis secondary to above Titrate lactulose to have 3-4 good bowel movements daily Continue rifaximin Monitor for hepatic encephalopathy Monitor volume status Resume home diuretics as able Pulmonary hypertension Moderate Continue home medications Hyperlipidemia on statin DM II Last HbA1c 8.4 Continue insulin while hospitalized Monitor BGs DVT Px: SCDs Re: Thrombocytopenia CODE STATUS Full code Admission and Anticipated Discharge Date Admission Date: June 21, 2024 Subjective Patient is seen and examined at bedside States feeling a lot better today Sodium levels worsened to 122 today Less lethargic today Denies any nausea, vomiting, chest pain, dyspnea, abdominal pain Review of Systems Review of Systems: All systems reviewed & are unremarkable except as noted in Subjective Physical Exam Physical Exam: Physical Exam: Vitals signs as noted above General Appearance:Moderately built and nourished, no apparent distress, chronic ill appearing Head: normocephalic, Atraumatic Eyes: normal inspection, EOMI Neck: supple, Trachea midline Respiratory/Chest: Normal breath sounds, CTA, No accessory muscle use Cardiovascular: S1, S2, + murmur Abdomen/GI:Soft, Non tender, distended, Bowel sounds present Extremities/Musculoskeletal:normal inspection, Trace edema Neurologic/Psych:AAOX3, grossly no focal neurological deficits Skin: normal color, warm,+Jaundice Results & Data Results & Data Vital Signs (Past 12 Hours) Vital Signs Temp Pulse Pulse Resp BP Pulse Ox O2 Del Method 06/23/24 12:02 36.7 C 88 16 118/72 99 Room Air 06/23/24 08:08 Room Air 06/23/24 07:55 85 06/23/24 07:52 36.6 C 94 H 17 112/71 99 Room Air 06/23/24 03:17 36.8 C 108 H 16 151/74 H 99 Room Air Laboratory Results Short CBC 06/23/24 Range/Units 05:27 WBC 8.75 (4.8-10.8) K/ul Hgb 10.3 L (14.0-18.0) g/dl Hct 27.9 L (42.0-52.0) % Plt Count 80 L (130-400) K/uL BMP 06/22/24 06/23/24 06/23/24 18:20 00:32 05:27 Sodium 122 L 122 L 123 L Potassium 4.3 Chloride 96 L Carbon Dioxide 21 BUN 16 Creatinine 0.94 Glucose 164 H Calcium 8.3 L 06/23/24 11:07 Sodium 122 L Potassium 4.1 Chloride 97 L Carbon Dioxide 19 L BUN 15 Creatinine 0.86 Glucose 194 H Calcium 8.7 Liver Function 06/23/24 Range/Units 05:27 Total Bilirubin 4.2 H (0.2-1.0) mg/dl Direct Bilirubin 1.1 H (0-0.2) mg/dl AST 55 H (13-39) U/L ALT 37 (7-52) U/L Alkaline Phosphatase 109 H (34-104) U/L Albumin 2.8 L (3.4-5.0) gm/dl
[2024-06-23] MEDS: FUROSEMIDE INJ 20 MG/2 ML VIAL IV SCH (17:39)
[2024-06-23] MEDS: POTASSIUM CHLORIDE CRTAB 20 MEQ TABCR PO SCH (17:39)
[2024-06-23] MEDS: MIDODRINE HCL 2.5 MG TAB PO SCH (18:44)
[2024-06-23 18:55] LABS: BUN Creatinine Ratio 12.4 (10-20); Calcium 8.5 mg/dl (8.6-10.3); Creatinine Clr Calc Pharmacy 82.8 ml/min; Est GFR (African American) 75.5 ml/min; Est GFR (Non-African American) 65.1 ml/min; Potassium 4.7 mmol/L (3.5-5.1)
[2024-06-23 21:23] LABS: Appearance Urine Clear (Clear); Bilirubin Urine Negative (Negative); Blood Urine Negative (Negative); Color Urine Yellow; Glucose Urine UA Negative (Negative); Ketones Urine Negative (Negative); Leukocyte Esterase Urine Negative (Negative); Nitrite Urine Negative (Negative); Protein Urine Negative (Negative); Urobilinogen Urine Negative (Negative); pH Urine 5.5 (4.5-7.5)
[2024-06-23 21:43] LABS: Urine Potassium 33.3 mmol/L
[2024-06-24 07:04] LABS: Hematocrit (blood only) 28.7 % (42.0-52.0); Hemoglobin 10.4 g/dl (14.0-18.0); Mean Corpuscular Hemoglobin 37.5 pg (25.0-34.0); Mean Corpuscular Hgb Conc 36.2 g/dL (32.0-36.0); Mean Corpuscular Volume 103.6 fL (80.0-100.0); Mean Platelet Volume 11.1 fL (9.4-12.4); Platelet Count 76 K/uL (130-400); RDW Coefficient of Variation 14.8 % (11.5-14.5); RDW Standard Deviation 56.2 fL (36.4-46.3); Red Blood Count 2.77 M/uL (4.70-6.10); White Blood Count 6.97 K/ul (4.8-10.8)
[2024-06-24 07:22] LABS: Albumin Level 2.7 gm/dl (3.4-5.0); BUN Creatinine Ratio 17.2 (10-20); Bilirubin Direct 0.9 mg/dl (0-0.2); Bilirubin,Total 3.6 mg/dl (0.2-1.0); Calcium 7.8 mg/dl (8.6-10.3); Creatinine Clr Calc Pharmacy 106.6 ml/min; Est GFR (African American) 103.8 ml/min; Est GFR (Non-African American) 89.5 ml/min; Potassium 4.3 mmol/L (3.5-5.1); Total Protein 6.5 gm/dl (6.0-8.3)
[2024-06-24] MEDS: MIDODRINE HCL 2.5 MG TAB PO SCH (08:44)
[2024-06-24] MEDS: FUROSEMIDE INJ 20 MG/2 ML VIAL IV SCH ×2 (08:49→11:20)
--- NOTE | 2024-06-24 10:49 | Nephrology Progress Note ---
Date of Service June 24, 2024 Assessment & Plan Admission and Anticipated Discharge Date Admission Date: June 21, 2024 Subjective Assessment & Plan (1) Acute hyponatremia: Acutely worsening hyponatremia w/ presenting sNa 127 on 06/21 and now down to 120 . Typically we suspect hypervolemic etiology in patients with Liver cirrhosis but this might be multifaceted problem. Given worsening Na will change course here. Give NS 1000 ml for Salt/volume load. Also raise lasix to 40 iv q8h for Free water diuresis. NO aldactone strict I/O ordered needs daily STANDING weight; standing weight only ordered urine and serum studies for hyponatremia to be completed late this am > uncollected as of 1699 and tightened FR to 1.5L; may need to be tighter will start midodrine 2.5 mg tid for now strictly to help w/ hypotension sx continue <2 gm daily na diet repeat bmp for 1699. no need for 1PM BMP Maintain eukalemia --given increased lasix dose will raise it to 30 tid Plan above Discussed with Dr Delgado and In agreement. S--Feels fine. Denies N or v. No edema at all. Making urine 1350 ml ?? yesterday. Physical Exam Constitutional: well developed, well nourished, + obese and cooperative; no acute distress Eyes: EOM intact bilaterally ENMT: Ears: no external ear abnormality Nose: no external nose abnormality Mouth: + dry oral mucous membranes Neck: no nuchal rigidity Respiratory: normal respiratory effort Auscultation: + diminished lung sounds Cardiovascular: RRR, no murmur, no edema Gastrointestinal (Abdomen): Inspection/Auscultation: normal bowel sounds; no abdominal edema Percussion/Palpation: abdomen soft; abdomen nontender and no ascites Musculoskeletal: Extremities: strength 5/5 throughout Skin: no rashes, warm and dry Neurologic: bradford, fluent speech, no tremor Psychiatric: Orientation: alert and oriented x 3 Results & Data Vital Signs (Past 12 Hours) Vital Signs Temp Pulse Pulse Resp BP Pulse Ox O2 Del Method 06/24/24 07:22 36.7 C 88 20 101/58 L 98 Room Air 06/24/24 07:18 88 06/24/24 02:53 36.9 C 81 16 105/59 L 98 Room Air 06/23/24 23:52 36.7 C 92 H 16 108/68 99 Room Air
[2024-06-24] MEDS: POTASSIUM CHLORIDE 10 MEQ TABCR PO SCH (13:16)
[2024-06-24] MEDS: SODIUM CHLORIDE 0.9% 1,000 ML IV SCH (13:16)
--- NOTE | 2024-06-24 17:14 | Hospitalist Progress Note ---
Date of Service June 24, 2024 Assessment & Plan (1) Acute hyponatremia: Plan: Acute on chronic hyponatremia Secondary to liver disease, diuretics, GI losses from lactulose, nausea/vomiting Serum osmolality 284>271 Urine osmolality 587>376 Urine sodium 73>102 TSH in May 22 1.8 Home diuretics held Continue fluid restriction Monitor sodium levels closely Appreciate nephrology input Hold home diuretics for now Continue IV fluids along with IV Lasix as recommended by nephrology Sodium 120 today Started on midodrine to help with hypotension Pancytopenia Chronic Currently no signs of acute bleeding Hemoglobin, platelet count at baseline Monitor CBC GONZALES cirrhosis Hepatocellular carcinoma s/p embolization on 08/02/23 --CT head:There is no hemorrhage, mass effect, or evidence of acute territorial ischemia by CT criteria. --Ammonia: 121>>60 Mild transaminitis secondary to above Titrate lactulose to have 3-4 good bowel movements daily Continue rifaximin Monitor for hepatic encephalopathy Monitor volume status Resume home diuretics as able Pulmonary hypertension Moderate Continue home medications Hyperlipidemia on statin DM II Last HbA1c 8.4 Continue insulin while hospitalized Monitor BGs DVT Px: SCDs Re: Thrombocytopenia CODE STATUS Full code Admission and Anticipated Discharge Date Admission Date: June 21, 2024 Subjective Patient is seen and examined at bedside Reports having nausea this morning which she attributes to lactulose Also reports hand cramps to RN No other complaints today Sodium 120 today Discussed with nephrology today Denies any chest pain, dyspnea, abdominal pain, dizziness Review of Systems Review of Systems: All systems reviewed & are unremarkable except as noted in Subjective Physical Exam Physical Exam: Physical Exam: Vitals signs as noted above General Appearance:Moderately built and nourished, no apparent distress, chronic ill appearing Head: normocephalic, Atraumatic Eyes: normal inspection, EOMI Neck: supple, Trachea midline Respiratory/Chest: Normal breath sounds, CTA, No accessory muscle use Cardiovascular: S1, S2, + murmur Abdomen/GI:Soft, Non tender, distended, Bowel sounds present Extremities/Musculoskeletal:normal inspection, Trace edema Neurologic/Psych:AAOX3, grossly no focal neurological deficits Skin: normal color, warm,+Jaundice Results & Data Results & Data Vital Signs (Past 12 Hours) Vital Signs Temp Pulse Pulse Resp BP Pulse Ox O2 Del Method 06/24/24 14:50 90 06/24/24 14:47 36.7 C 96 H 18 99/61 L 95 Room Air 06/24/24 10:58 36.4 C L 85 18 117/70 100 Room Air 06/24/24 07:22 36.7 C 88 20 101/58 L 98 Room Air 06/24/24 07:18 88 Laboratory Results Short CBC 06/24/24 Range/Units 06:14 WBC 6.97 (4.8-10.8) K/ul Hgb 10.4 L (14.0-18.0) g/dl Hct 28.7 L (42.0-52.0) % Plt Count 76 L (130-400) K/uL BMP 06/23/24 06/24/24 18:15 06:14 Sodium 122 L 120 L Potassium 4.7 4.3 Chloride 95 L 93 L Carbon Dioxide 20 L 24 BUN 15 16 Creatinine 1.21 D 0.93 Glucose 182 H 245 H Calcium 8.5 L 7.8 L Liver Function 06/24/24 Range/Units 06:14 Total Bilirubin 3.6 H (0.2-1.0) mg/dl Direct Bilirubin 0.9 H (0-0.2) mg/dl AST 51 H (13-39) U/L ALT 36 (7-52) U/L Alkaline Phosphatase 105 H (34-104) U/L Albumin 2.7 L (3.4-5.0) gm/dl Urine 06/23/24 Range/Units Unknown Urine Color Yellow Urine Appearance Clear (Clear) Urine pH 5.5 (4.5-7.5) Ur Specific [place] 1.010 (1.000-1.030) Urine Protein Negative (Negative) Urine Glucose (UA) Negative (Negative)
[2024-06-25 07:12] LABS: BUN Creatinine Ratio 19.8 (10-20); Calcium 7.8 mg/dl (8.6-10.3); Creatinine Clr Calc Pharmacy 122.4 ml/min; Est GFR (African American) 112.7 ml/min; Est GFR (Non-African American) 97.3 ml/min; Potassium 3.9 mmol/L (3.5-5.1)
--- NOTE | 2024-06-25 10:00 | Nephrology Progress Note ---
Date of Service June 25, 2024 Assessment & Plan Admission and Anticipated Discharge Date Admission Date: June 21, 2024 Subjective Assessment & Plan (1) Acute hyponatremia: Acutely worsening hyponatremia w/ presenting sNa 127 on 06/21 and then down to 120 but did not drop further. Typically we suspect hypervolemic etiology in patients with Liver cirrhosis but this might be multifaceted problem. for the first time in many days na did not go lower. now about 120--122. Continue NS for Salt/volume load at a lower rate of 50ml/hr Also Continue lasix 40 iv q8h for Free water diuresis. NO aldactone strict I/O ordered. urine output did go up a lot from 1350 ml to 2700 ml yesterday. needs daily STANDING weight; standing weight only tightened FR to 1.5L; may need to be tighter will conitnue midodrine 2.5 mg tid for now strictly to help w/ hypotension sx continue <2 gm daily na diet repeat bmp for 1800. Maintain eukalemia --K is normal. continue current Kcl 30 tid. Plan above Discussed with Dr Delgado and In agreement. S--Feels fine. Denies N or v. No edema at all. urine output did go up a lot from 1350 ml to 2700 ml yesterday. Physical Exam Constitutional: well developed, well nourished, + obese and cooperative; no acute distress Eyes: EOM intact bilaterally ENMT: Ears: no external ear abnormality Nose: no external nose abnormality Mouth: + dry oral mucous membranes Neck: no nuchal rigidity Respiratory: normal respiratory effort Auscultation: + diminished lung sounds Cardiovascular: RRR, no murmur, no edema Gastrointestinal (Abdomen): Inspection/Auscultation: normal bowel sounds; no abdominal edema Percussion/Palpation: abdomen soft; abdomen nontender and no ascites Musculoskeletal: Extremities: strength 5/5 throughout Skin: no rashes, warm and dry Neurologic: bradford, fluent speech, no tremor Psychiatric: Orientation: alert and oriented x 3 Results & Data Vital Signs (Past 12 Hours) Vital Signs Temp Pulse Pulse Resp BP Pulse Ox O2 Del Method 06/25/24 08:26 36.5 C 83 18 103/64 99 Room Air 06/25/24 07:00 97 H 06/25/24 03:54 101 H 06/25/24 03:13 36.4 C L 90 18 115/70 100 Room Air 06/24/24 22:57 36.4 C L 88 18 102/60 97 Room Air 06/24/24 21:59 91 H
--- NOTE | 2024-06-25 17:02 | Hospitalist Progress Note ---
Date of Service June 25, 2024 Assessment & Plan (1) Acute hyponatremia: Plan: Acute on chronic hyponatremia Secondary to liver disease, diuretics, GI losses from lactulose, nausea/vomiting Serum osmolality 284>271 Urine osmolality 587>376 Urine sodium 73>102 TSH in May 22 1.8 Home diuretics held Continue fluid restriction Appreciate nephrology input Hold home diuretics for now Sodium 121 today Started on midodrine to help with hypotension Continue fluids, Lasix per nephrology Monitor sodium levels closely Pancytopenia Chronic Currently no signs of acute bleeding Hemoglobin, platelet count at baseline Monitor CBC GONZALES cirrhosis Hepatocellular carcinoma s/p embolization on 08/02/23 --CT head:There is no hemorrhage, mass effect, or evidence of acute territorial ischemia by CT criteria. --Ammonia: 121>>60 Mild transaminitis secondary to above Titrate lactulose to have 3-4 good bowel movements daily Continue rifaximin Monitor for hepatic encephalopathy Monitor volume status Resume home diuretics as able Pulmonary hypertension Moderate Continue home medications Hyperlipidemia on statin DM II Last HbA1c 8.4 Continue insulin while hospitalized Monitor BGs DVT Px: SCDs Re: Thrombocytopenia CODE STATUS Full code Admission and Anticipated Discharge Date Admission Date: June 21, 2024 Subjective Patient is seen and examined at bedside States feeling well today Feels having dry mouth Nausea, abdominal discomfort resolved Discussed with nephrology today Sodium still low at 121 Denies any chest pain, dyspnea, abdominal pain, dizziness Review of Systems Review of Systems: All systems reviewed & are unremarkable except as noted in Subjective Physical Exam Physical Exam: Physical Exam: Vitals signs as noted above General Appearance:Moderately built and nourished, no apparent distress, chronic ill appearing Head: normocephalic, Atraumatic Eyes: normal inspection, EOMI Neck: supple, Trachea midline Respiratory/Chest: Normal breath sounds, CTA, No accessory muscle use Cardiovascular: S1, S2, + murmur Abdomen/GI:Soft, Non tender, distended, Bowel sounds present Extremities/Musculoskeletal:normal inspection, Trace edema Neurologic/Psych:AAOX3, grossly no focal neurological deficits Skin: normal color, warm,+Jaundice Results & Data Results & Data Vital Signs (Past 12 Hours) Vital Signs Temp Pulse Pulse Resp BP BP Pulse Ox 06/25/24 16:10 36.5 C 84 18 102/68 97 06/25/24 13:00 112 H 06/25/24 11:40 36.3 C L 77 18 98/61 L 94 06/25/24 09:57 06/25/24 08:26 36.5 C 83 18 103/64 99 06/25/24 07:00 97 H O2 Del Method 06/25/24 16:10 Room Air 06/25/24 13:00 06/25/24 11:40 Room Air 06/25/24 09:57 Room Air 06/25/24 08:26 Room Air 06/25/24 07:00 Laboratory Results [facility] 06/24/24 06/25/24 17:19 06:21 Sodium 122 L 121 L Potassium 3.9 Chloride 93 L Carbon Dioxide 23 BUN 16 Creatinine 0.81 Glucose 218 H Calcium 7.8 L
[2024-06-25 18:51] LABS: Albumin Level 2.8 gm/dl (3.4-5.0); BUN Creatinine Ratio 15.1 (10-20); Calcium 8.3 mg/dl (8.6-10.3); Creatinine Clr Calc Pharmacy 93.5 ml/min; Est GFR (African American) 88.6 ml/min; Est GFR (Non-African American) 76.4 ml/min; Phosphorus 2.5 mg/dl (2.5-4.9); Potassium 4.5 mmol/L (3.5-5.1)
[2024-06-26 06:47] LABS: Hematocrit (blood only) 28.6 % (42.0-52.0); Hemoglobin 10.5 g/dl (14.0-18.0); Mean Corpuscular Hemoglobin 37.2 pg (25.0-34.0); Mean Corpuscular Hgb Conc 36.7 g/dL (32.0-36.0); Mean Corpuscular Volume 101.4 fL (80.0-100.0); Mean Platelet Volume 11.1 fL (9.4-12.4); Platelet Count 74 K/uL (130-400); RDW Coefficient of Variation 14.8 % (11.5-14.5); RDW Standard Deviation 55.6 fL (36.4-46.3); Red Blood Count 2.82 M/uL (4.70-6.10); White Blood Count 6.14 K/ul (4.8-10.8)
[2024-06-26 07:28] LABS: BUN Creatinine Ratio 16.8 (10-20); Calcium 7.9 mg/dl (8.6-10.3); Creatinine Clr Calc Pharmacy 103.6 ml/min; Est GFR (African American) 101.1 ml/min; Est GFR (Non-African American) 87.3 ml/min; Potassium 3.9 mmol/L (3.5-5.1)
--- NOTE | 2024-06-26 10:11 | Nephrology Progress Note ---
Date of Service June 26, 2024 Assessment & Plan Admission and Anticipated Discharge Date Admission Date: June 21, 2024 Subjective Assessment & Plan (1) Acute hyponatremia: Acutely worsening hyponatremia w/ presenting sNa 127 on 06/21 and then down to 120 but did not drop further. now 120--122 range Typically we suspect hypervolemic etiology in patients with Liver cirrhosis but this might be multifaceted complex problem. lasix alone nor lasix with NS made any difference !! Na stuck now about 120--122 for 3 days now. making lot of urine with lasix 40 iv q8h Stop NS--made no difference Add Salt tab 1 gm tid Continue lasix 40 iv q8h for Free water diuresis. NO aldactone strict I/O ordered. will continue midodrine 2.5 mg tid for now strictly to help w/ hypotension sx continue <2 gm daily na diet repeat bmp for 1800. Maintain eukalemia --K is normal. continue current Kcl 30 tid. Normally dont like using urea-na in cirrhosis patient but will make an exception and use 15 gm bid. Plan above Discussed with primary team and In agreement. S--Feels fine. Denies N or v. No edema at all. urine output 2700 ml yesterday. But na does not change Physical Exam Constitutional: well developed, well nourished, + obese and cooperative; no acute distress Eyes: EOM intact bilaterally ENMT: Ears: no external ear abnormality Nose: no external nose abnormality Mouth: + dry oral mucous membranes Neck: no nuchal rigidity Respiratory: normal respiratory effort Auscultation: + diminished lung sounds Cardiovascular: RRR, no murmur, no edema Gastrointestinal (Abdomen): Inspection/Auscultation: normal bowel sounds; no abdominal edema Percussion/Palpation: abdomen soft; abdomen nontender and no ascites Musculoskeletal: Extremities: strength 5/5 throughout Skin: no rashes, warm and dry Neurologic: bradford, fluent speech, no tremor Psychiatric: Orientation: alert and oriented x 3 Results & Data Vital Signs (Past 12 Hours) Vital Signs Temp Pulse Pulse Resp BP Pulse Ox O2 Del Method 06/26/24 08:30 Room Air 06/26/24 07:34 36.5 C 86 18 115/73 99 Room Air 06/26/24 07:00 86 06/26/24 03:14 36.5 C 92 H 16 103/63 98 Room Air 06/25/24 23:38 88 06/25/24 22:45 36.6 C 92 H 18 110/66 99 Room Air
[2024-06-26] MEDS: UREA (UREA-NA) 15 GM PACK PO SCH (11:39)
--- NOTE | 2024-06-26 14:03 | Hospitalist Progress Note ---
Date of Service June 26, 2024 Assessment & Plan (1) Acute hyponatremia: Plan: Acute on chronic hyponatremia Secondary to liver disease, diuretics, GI losses from lactulose, nausea/vomiting Serum osmolality 284>271 Urine osmolality 587>376 Urine sodium 73>102 TSH in May 22 1.8 Na has been 120-122 the past few days Java Development Manager on board Nephro stopped IVF and started urea and sodium tab Still on IV lasix 40mg Q8h Will recheck Na in AM Continue midodrine started this admission to help with hypotension Will continue to follow Nephro recs Chronic anemia Chronic thrombocytopenia Leukopenia resolved so far Currently no signs of acute bleeding Hemoglobin, platelet count at baseline Monitor CBC GONZALES cirrhosis Hepatocellular carcinoma s/p embolization on 08/02/23 --CT head:There is no hemorrhage, mass effect, or evidence of acute territorial ischemia by CT criteria. --Ammonia: 121>>60 Mild transaminitis secondary to above Titrate lactulose to have 3-4 good bowel movements daily Continue rifaximin Monitor for hepatic encephalopathy Monitor volume status Pulmonary hypertension Moderate Continue home medications Hyperlipidemia on statin DM II Last HbA1c 8.4 Continue insulin while hospitalized Monitor BGs DVT Px: SCDs Re: Thrombocytopenia CODE STATUS Full code I spent a total of 40 minutes coordinating, documenting and providing care for this patient excluding time spent in performance of separately billed services Admission and Anticipated Discharge Date Admission Date: June 21, 2024 Subjective Patient seen and examined Reports feeling better today Denied any complaints on ROS today Physical Exam Constitutional: + well hydrated and + obese; no acute di stress Eyes: PERRL, conjunctivae normal, anicteric sclerae ENMT: external ear and nose normal, oropharynx normal Respiratory: normal respiratory effort, lungs clear to auscultation Cardiovascular: Rate/Rhythm: regular rate and regular rhythm Gastrointestinal (Abdomen): Soft, distended, nontender, normal bowel sounds Musculoskeletal: No pedal edema Neurologic: PERRL, EOMI, accommodation nl, no face palsy, no dysarthria Psychiatric: A+Ox3, euthymic affect Results & Data Results & Data Vital Signs (Past 12 Hours) Vital Signs Temp Pulse Pulse Resp BP Pulse Ox O2 Del Method 06/26/24 11:56 36.9 C 86 18 96/57 L 100 Room Air 06/26/24 08:30 Room Air 06/26/24 07:34 36.5 C 86 18 115/73 99 Room Air 06/26/24 07:00 86 06/26/24 03:14 36.5 C 92 H 16 103/63 98 Room Air Laboratory Results Abnormal lab results 06/25/24 06/25/24 06/26/24 Range/Units 16:37 18:12 06:11 RBC 2.82 L (4.70-6.10) M/uL Hgb 10.5 L (14.0-18.0) g/dl Hct 28.6 L (42.0-52.0) % MCV 101.4 H (80.0-100.0) fL MCH 37.2 H (25.0-34.0) pg MCHC 36.7 H (32.0-36.0) g/dL RDW Std Deviation 55.6 H (36.4-46.3) fL RDW Coeff of Polo 14.8 H (11.5-14.5) % Plt Count 74 L (130-400) K/uL Sodium 122 L 121 L (136-145) mmol/L Chloride 94 L 93 L (98-107) mmol/L Glucose 223 H 202 H (70-99(Fasting)) mg/dl POC Glucose 277 H (70-99) mg/dl Calcium 8.3 L 7.9 L (8.6-10.3) mg/dl Albumin 2.8 L (3.4-5.0) gm/dl 06/26/24 06/26/24 Range/Units 08:11 12:10 RBC (4.70-6.10) M/uL Hgb (14.0-18.0) g/dl Hct (42.0-52.0) % MCV (80.0-100.0) fL MCH (25.0-34.0) pg MCHC (32.0-36.0) g/dL RDW Std Deviation (36.4-46.3) fL RDW Coeff of Polo (11.5-14.5) % Plt Count (130-400) K/uL Sodium (136-145) mmol/L Chloride (98-107) mmol/L Glucose (70-99(Fasting)) mg/dl POC Glucose 142 H 225 H (70-99) mg/dl Calcium (8.6-10.3) mg/dl Albumin (3.4-5.0) gm/dl
[2024-06-26] MEDS: SODIUM CHLORIDE 1 GM TABLET PO SCH (14:48)
--- NOTE | 2024-06-26 15:42 | Electrocardiogram Report ---
Test Reason : Blood Pressure : */* mmHG Vent. Rate : 97 BPM Atrial Rate : 97 BPM P-R Int : 156 ms QRS Dur : 84 ms QT Int : 412 ms P-R-T Axes : 73 46 84 degrees QTcB Int : 523 ms Normal sinus rhythm Nonspecific ST abnormality Prolonged QT Abnormal ECG When compared with ECG of 26-May-2024 17:42, QT has lengthened Confirmed by Rosa Garza (Harley) on 06/22/2024 1:45:50 PM Referred By: REFERRED SELF Confirmed By: Rosa Garza
[2024-06-27 08:02] LABS: BUN Creatinine Ratio 22.1 (10-20); Calcium 8.1 mg/dl (8.6-10.3); Creatinine Clr Calc Pharmacy 114.4 ml/min; Est GFR (Non-African American) 94.9 ml/min; Potassium 3.8 mmol/L (3.5-5.1)
--- NOTE | 2024-06-27 10:22 | Nephrology Progress Note ---
Date of Service June 27, 2024 Assessment & Plan Admission and Anticipated Discharge Date Admission Date: June 21, 2024 Subjective Assessment & Plan (1) Acute hyponatremia: Acutely worsening hyponatremia w/ presenting sNa 127 on 06/21 and then down to 120 but did not drop further. now 120--122 range Typically we suspect hypervolemic etiology in patients with Liver cirrhosis but this might be multifaceted complex problem. lasix alone nor lasix with NS made any difference !! even saltab and urea not making difference Na stuck now about 120--122 for 5 days now. 121 today making lot of urine with lasix 40 iv q8h ( yesterday was 1500 ml but usually 2600 ml) Add Salt tab 1 gm tid Continue lasix 40 iv q8h for Free water diuresis. NO aldactone strict I/O ordered. will continue midodrine 2.5 mg tid for now strictly to help w/ hypotension sx continue <2 gm daily na diet repeat bmp for 1800. Maintain eukalemia --K is normal. continue current Kcl 30 tid. Normally dont like using urea-na in cirrhosis patient but will make an exception and continue 15 gm. raise the dose to 15 tid today despite all combinations of Treatment for Hyponatremia Na does not go up. have to double check that he is not drinking more than the fluid limit !!! at 121 Dont want to use Hypertonic saline either. Will use if < 120. Plan above Discussed with primary team and In agreement. S--Feels fine. Denies N or v. No edema at all. urine output 1500 ml yesterday. But na does not change Physical Exam Constitutional: well developed, well nourished, + obese and cooperative; no acute distress Eyes: EOM intact bilaterally ENMT: Ears: no external ear abnormality Nose: no external nose abnormality Mouth: + dry oral mucous membranes Neck: no nuchal rigidity Respiratory: normal respiratory effort Auscultation: + diminished lung sounds Cardiovascular: RRR, no murmur, no edema Gastrointestinal (Abdomen): Inspection/Auscultation: normal bowel sounds; no abdominal edema Percussion/Palpation: abdomen soft; abdomen nontender and no ascites Musculoskeletal: Extremities: strength 5/5 throughout Skin: no rashes, warm and dry Neurologic: bradford, fluent speech, no tremor Psychiatric: Orientation: alert and oriented x 3 Results & Data Vital Signs (Past 12 Hours) Vital Signs Temp Pulse Pulse Resp BP BP Pulse Ox 06/27/24 09:00 06/27/24 08:06 36.6 C 84 20 106/67 100 06/27/24 07:00 84 06/27/24 04:00 36.6 C 89 18 110/66 100 06/27/24 00:48 85 06/26/24 23:30 36.6 C 86 20 106/65 99 06/26/24 22:40 O2 Del Method 06/27/24 09:00 Room Air 06/27/24 08:06 Room Air 06/27/24 07:00 06/27/24 04:00 Room Air 06/27/24 00:48 06/26/24 23:30 Room Air 06/26/24 22:40 Room Air
--- NOTE | 2024-06-27 10:45 | Hospitalist Progress Note ---
Date of Service June 27, 2024 Assessment & Plan (1) Acute hyponatremia: Plan: Acute on chronic hyponatremia Secondary to liver disease, diuretics, GI losses from lactulose, nausea/vomiting Serum osmolality 284>271 Urine osmolality 587>376 Urine sodium 73>102 TSH in May 22 1.8 Na has been 120-122 the past few days Na is 121 today Historian Research Assistant on board Nephro increased urea to TID. Still on salt tab and IV lasix 40mg Q8h Continue midodrine started this admission to help with hypotension Will continue to follow Nephro recs Chronic anemia Chronic thrombocytopenia Leukopenia resolved so far Currently no signs of acute bleeding Hemoglobin, platelet count at baseline Monitor CBC GONZALES cirrhosis Hepatocellular carcinoma s/p embolization on 08/02/23 --CT head:There is no hemorrhage, mass effect, or evidence of acute territorial ischemia by CT criteria. --Ammonia: 121>>60 Mild transaminitis secondary to above Titrate lactulose to have 3-4 good bowel movements daily Continue rifaximin Monitor for hepatic encephalopathy Monitor volume status Pulmonary hypertension Moderate Continue home medications Hyperlipidemia on statin DM II Last HbA1c 8.4 Continue insulin while hospitalized Monitor BGs DVT Px: SCDs Re: Thrombocytopenia CODE STATUS Full code I spent a total of 40 minutes coordinating, documenting and providing care for this patient excluding time spent in performance of separately billed services Admission and Anticipated Discharge Date Admission Date: June 21, 2024 Subjective Patient seen and examined No new complaints today Had declined urea last night but agreed to resume it after discussing with him this AM Physical Exam Constitutional: + well hydrated and + obese; no acute di stress Eyes: PERRL, conjunctivae normal, anicteric sclerae ENMT: external ear and nose normal, oropharynx normal Respiratory: normal respiratory effort, lungs clear to auscultation Cardiovascular: Rate/Rhythm: regular rate and regular rhythm Gastrointestinal (Abdomen): Soft, mild distended, nontender, normal bowel sounds Musculoskeletal: No pedal edema Neurologic: PERRL, EOMI, accommodation nl, no face palsy, no dysarthria Psychiatric: A+Ox3, euthymic affect Results & Data Results & Data Vital Signs (Past 12 Hours) Vital Signs Temp Pulse Pulse Resp BP BP Pulse Ox 06/27/24 09:00 06/27/24 08:06 36.6 C 84 20 106/67 100 06/27/24 07:00 84 06/27/24 04:00 36.6 C 89 18 110/66 100 06/27/24 00:48 85 06/26/24 23:30 36.6 C 86 20 106/65 99 O2 Del Method 06/27/24 09:00 Room Air 06/27/24 08:06 Room Air 06/27/24 07:00 06/27/24 04:00 Room Air 06/27/24 00:48 06/26/24 23:30 Room Air Laboratory Results Abnormal lab results 06/26/24 06/26/24 06/26/24 Range/Units 12:10 17:02 20:11 Sodium (136-145) mmol/L Chloride (98-107) mmol/L BUN/Creatinine Ratio (10-20) Glucose (70-99(Fasting)) mg/dl POC Glucose 225 H 160 H 187 H (70-99) mg/dl Calcium (8.6-10.3) mg/dl 06/27/24 06/27/24 Range/Units 07:22 07:46 Sodium 121 L (136-145) mmol/L Chloride 90 L (98-107) mmol/L BUN/Creatinine Ratio 22.1 H (10-20) Glucose 178 H (70-99(Fasting)) mg/dl POC Glucose 171 H (70-99) mg/dl Calcium 8.1 L (8.6-10.3) mg/dl
[2024-06-27] MEDS: UREA (UREA-NA) 15 GM PACK PO SCH (13:13)
[2024-06-27 20:07] VITALS: RESP 18
[2024-06-28 08:12] VITALS: PULSE 80; TEMP 97.5; O2SAT 100
[2024-06-28 08:12] LABS: BUN Creatinine Ratio 36.8 (10-20); Calcium 8.6 mg/dl (8.6-10.3); Creatinine Clr Calc Pharmacy 102.1 ml/min; Est GFR (African American) 101.1 ml/min; Est GFR (Non-African American) 87.3 ml/min
--- NOTE | 2024-06-28 09:18 | Nephrology Progress Note ---
Date of Service June 28, 2024 Assessment & Plan Admission and Anticipated Discharge Date Admission Date: June 21, 2024 Subjective Assessment & Plan (1) Acute hyponatremia: Acutely worsening hyponatremia w/ presenting sNa 127 on 06/21 and then down to 120 but did not drop further. now 120--122 range Typically we suspect hypervolemic etiology in patients with Liver cirrhosis but this might be multifaceted complex problem. lasix alone nor lasix with NS made any difference !! even saltab and urea not making difference Na stuck now about 120--122 for 5 days now. 121 today making lot of urine with lasix 40 iv q8h ( yesterday was 1500 ml but usually 2600 ml) Add Salt tab 1 gm tid Continue lasix 40 iv q8h for Free water diuresis. NO aldactone strict I/O ordered. will continue midodrine 2.5 mg tid for now strictly to help w/ hypotension sx continue <2 gm daily na diet repeat bmp for 1800. he really wants to go home: Although Na has been low it has not moved for 6 days now : 120--122 range. Given His cirrhosis sometime they just dont get higher. Cannot keep him in hospital forever. he cannot tolerate Urea-na so will stop that--did not make difference anyway. We have used all combinations of Treatment for Hyponatremia but Na does not go up. have to double check that he is not drinking more than the fluid limit !!! For Discharge: kcl 20 bid. NO aldactone. torsemide 40 bid. Salt tab 1 gm bid. FFR 1200 ml per day. I have suspicion he is drinking more than FFR even inside hospital. Labs next week. nephro f/u within 1-2 week. Midodrine same as inpt. S--Feels fine. Denies N or v. No edema at all. Na 122. making urine. wants to go home Physical Exam Constitutional: well developed, well nourished, + obese and cooperative; no acute distress Eyes: EOM intact bilaterally ENMT: Ears: no external ear abnormality Nose: no external nose abnormality Mouth: + dry oral mucous membranes Neck: no nuchal rigidity Respiratory: normal respiratory effort Auscultation: + diminished lung sounds Cardiovascular: RRR, no murmur, no edema Gastrointestinal (Abdomen): Inspection/Auscultation: normal bowel sounds; no abdominal edema Percussion/Palpation: abdomen soft; abdomen nontender and no ascites Musculoskeletal: Extremities: strength 5/5 throughout Skin: no rashes, warm and dry Neurologic: bradford, fluent speech, no tremor Psychiatric: Orientation: alert and oriented x 3 Results & Data Vital Signs (Past 12 Hours) Vital Signs Temp Pulse Pulse Resp BP BP Pulse Ox 06/28/24 08:11 36.4 C L 80 18 109/69 100 06/28/24 07:17 92 H 06/28/24 01:55 36.6 C 90 18 108/70 98 06/27/24 23:04 36.5 C 75 18 110/65 94 O2 Del Method 06/28/24 08:11 Room Air 06/28/24 07:17 06/28/24 01:55 Room Air 06/27/24 23:04 Room Air
--- NOTE | 2024-06-28 10:01 | Discharge Summary ---
Date of Service June 28, 2024 Admission HPI Per Admitting Provider History obtained from patient and records. Medical history significant for moderate , hypertension, hyperlipidemia, pulmonary hypertension, NAFLD cirrhosis, hepatocellular CA, DM2 insulin requiring, BPH, chronic hyponatremia, chronic pancytopenia (baseline hemoglobin 10-11), gout, past tobacco abuse Recent confinement 3 weeks ago for hepatic encephalopathy due to medication noncompliance. Patient had stomach upset yesterday after eating some noodles. Nausea/emesis without abdominal pain/fluid retention. Intentionally skipped lactulose medications due to GI symptoms. Denies headache, chest pain, cough. Transient SOB symptoms. Medical History as above Surgical History : None Family History : DM, COPD, heart disease Personal/Social history : Past tobacco abuse, no EtOH intake, disabled Admission Exam Per Admitting Provider GENERAL: Comfortable, pleasant, obese, no respiratory distress SKIN: Pallor,, warm HEENT: Pale palpebral conjunctivae, no ptosis, dry buccal mucosa NECK : Supple, no tenderness CHEST : Decreased breath sounds, no tenderness HEART : RRR, systolic murmur ABDOMEN: Some distention, nontender EXTREMITIES : Minimal LE swelling without LE tenderness, no other conspicuous deformities noted NEUROLOGIC : Coherent, no facial asymmetry, no other gross focality Principal Diagnosis Hyponatremia Discharge Exam Constitutional + well hydrated and + obese; no acute distress Eyes PERRL, conjunctivae normal, anicteric sclerae ENMT external ear and nose normal, oropharynx normal Respiratory normal respiratory effort, lungs clear to auscultation Cardiovascular Rate/Rhythm: regular rate and regular rhythm Gastrointestinal (Abdomen) Soft, mild distended, nontender, normal bowel sounds Musculoskeletal No pedal edema Neurologic PERRL, EOMI, accommodation nl, no face palsy, no dysarthria Psychiatric A+Ox3, euthymic affect Discharge Data Allergies Allergy/AdvReac Type Severity Reaction Status Date / Time aspirin Allergy Intermediate NOSE Verified 01/11/24 08:15 BLEEDS--IF TAKES REGULARLY Consultations 06/21/24 21:08 ED Decision to Admit Stat 06/23/24 08:50 Consult Nephrology Routine Ordered Studies 06/21/24 22:14 CT angio chest PE protocol Stat 06/22/24 10:59 CT head/brain wo con Urgent Hospital Course (1) Acute hyponatremia: Acute on chronic hyponatremia Secondary to liver disease, diuretics, GI losses from lactulose, nausea/vomiting Serum osmolality 284>271 Urine osmolality 587>376 Urine sodium 73>102 TSH in May 22 1.8 Na has been 120-122 the past few days Na is 122 today Multiple adjustments were made by N[employer] Calenderer inpt Discussed with Nephrology today who recommends the following med changes: -Stop lasix and aldactone -Start torsemide 40mg BID -KCL 20mEq BID -Sodium tab 1g BID -Continue midodrine 2.5mg TID Patient is to get lab next week and follow up with Nephrology clinic Chronic anemia Chronic thrombocytopenia Leukopenia resolved so far Currently no signs of acute bleeding Hemoglobin, platelet count at baseline GONZALES cirrhosis Hepatocellular carcinoma s/p embolization on 08/02/23 --CT head:There is no hemorrhage, mass effect, or evidence of acute territorial ischemia by CT criteria. --Ammonia: 121>>60 Mild transaminitis secondary to above Titrate lactulose to have 3-4 good bowel movements daily Continue rifaximin Monitor for hepatic encephalopathy Pulmonary hypertension Moderate Continue home medications Hyperlipidemia on statin DM II Last HbA1c 8.4 Continue home antidiabetic regimen Total Time Total Time Spent Total Time Spent (In Minutes): 35 Total Time Includes: Examination of the Patient, Discharge Planning, Medication Reconciliation and Communication With Other Providers Discharge Plan Discharge Items Patient Disposition: Home - Self-Care Reason For Visit: HYPONATREMIA Discharge Diagnosis: Hyponatremia Activity: Resume your previous activity Non-emergency contact: Primary Care Provider and [employer] Calenderer Call non-emergency contact if: you have any medication questions and your symptoms worsen Follow-up/Referrals: Fernando Reina MD [Surgeon] - (The Nephrology office will contact you to set up an appointment and lab work.) Krystian Palomo MD [Primary Care Provider] - (Date & Time 07/05/2024 12:00 PM Provider Krystian Palomo MD Department Family Medicine [facility] ) Diet: Carb Consistent or DM2 and Heart Healthy Fluids: 1200ml (5 cups) Addtl Attending Provider Instructions: Mr Spencer You were managed in the hospital for your low sodium. Some changes were made to your medications by the N[employer] Calenderer: - Your lasix was changed to torsemide 40mg twice a day. - Stop taking spironolactone - You were started on salt tab 1g twice a day - You were started on potassium tab 20mEq twice a day - You were also started on midodrine 2.5mg three times a day Please ensure you adhere to daily fluid restriction of 1200cc per day. Please ensure you get lab work (Basic metabolic panel) next week and follow up with Nephrology clinic. It was a pleasure taking care of you. Pending Studies at Discharge: No Stand-Alone Forms: My [facility], Smoking Cessation Medications and DC Order Prescriptions: New midodrine 2.5 mg Tablet 2.5 mg PO TID@0800,1200,1700 30 Days Qty: 90 0RF sodium chloride 1,000 mg Tablet,Soluble 1,000 mg PO BID 30 Days Qty: 60 0RF torsemide 20 mg tablet 40 mg PO BID 30 Days Qty: 120 0RF potassium chloride 10 mEq Tablet,Er Particles/Crystals 20 meq PO BID 30 Days Qty: 120 0RF Continued metformin 500 mg Tablet 500 mg PO BIDM Rx Instructions: been over a year since filled. Original dose 500 mg allopurinol 300 mg Tablet 300 mg PO QAM multivitamin Tablet 1 tab PO QAM Rx Instructions: otc unable to verify atorvastatin 20 mg tablet 20 mg PO QAM Rx Instructions: Last filled in September 2023. Original dose 20 mg ascorbic acid (vitamin C) [Vitamin C] 1,000 mg Tablet 1 g PO QAM Rx Instructions: otc unable to verify tamsulosin 0.4 mg capsule 0.4 mg PO DAILY Xifaxan 550 mg tablet 550 mg PO BID Lantus Solostar U-100 Insulin 10 unit subcut DAILY omeprazole 20 mg capsule,delayed release(DR/EC) 20 mg PO QAM lactulose 20 gram/30 mL solution 45 g PO TID 30 Days Qty: 3000 1RF Rx Instructions: last filled in May 2023 Adjust dose up or down to maintain 3-4 loose BMs per day mupirocin 2 % ointment 1 applic EXT TID PRN (Reason: Wound Care) Rx Instructions: last filled jul 2023 Discontinued spironolactone 25 mg tablet 100 mg PO QAM furosemide 20 mg tablet 40 mg PO QAM Discharge Orders: Discharge Order (Routine); Ordered 06/28/24 Ordered By: Suzie Brooks Admission Data Admit Date/Time: 06/21/24 23:41 Attending Provider: Suzie Brooks I. Admit Provider: Joe Barnett Primary Care Provider: Krystian Palomo Other Providers: Joe Barnett; Lesvia Marx; Fernando Reina; Hilario Mccain; Dane Dawn; Nila Farr; Karsten Delgado Other Interventions: Discharge Summary Assessment (RN) Last Done: 06/28/24 11:11
[2024-06-28 11:12] VITALS: BP 108/70
== END 2024-06-28 12:10 | disposition home or self-care (01) | DRG 641 ==
LOC: ED 18:53 → EDINP 23:41 → SUATTDRO 23:41 → 2N 06-22 09:42

== ENCOUNTER 2024-06-29 18:50 | Inpatient (IN) ==
--- OUTSIDE RECORDS SUMMARY | 2024-06-29 18:59 | External Medical Summary | Summary of Care ---
Author Name Unknown Organization [facility] Address [address] [address] Phone [phone] Care Team Providers Care Novelty Twister Tender Name Role Phone Krystian Palomo MD Primary Care Provide r Reason for Visit * Reason Onset Date Comments Medication Refill 06/28/2024 Encounter Details Date Type Department Care Team (Late st Contact Info) Description 05/31/2024 Refill Family Medicine [address] [place] [id number] Krystian Palomo MD [address] [place] [address] [place] [address] Allergies Active Allergy Reactions Criticality Noted Date Comments Aspirin 01/28/2022 Other reaction(s): bloody nose Salicylates 08/08/2001 nose bleeds documented as of this encounter (statuses as of 06/28/2024) Medications Medication Sig Dispensed Refills Start Date [...] day. 90 Capsule 3 07/17/20 23 Active Albumin Human 25 % Intravenous Solution Give 50Gms after paracentesis (if more than 5L are removed). May run at 100/hr. 100 mL 11/09/19 24 Active Additional Information Patient not taking.Reported on 06/20/2024 rifAXIMin 550 MG Oral Tablet (Xifaxan) TAKE ONE TABLET BY MOUTH EVERY MORNING AND ONE TABLET AT BEDTIME 60 Tablet 12 11/24/19 24 Active Allopurinol 300 MG Oral [...] albumin 100 mL 10 01/24/20 24 Active Additional Information Patient not taking.Reported on 06/20/2024 Dexcom G7 Evaluator Transfer Students Device Use as directed to monitor blood sugars 1 Each 03/06/20 24 Active Additional Information Patient not taking.Reported on 06/20/2024 Dexcom G7 Sensor Use as directed to monitor blood sugars. Change every 10 days. 3 Each 3 03/06/20 24 Active Additional Information Patient not taking.Reported on 06/20/2024 Furosemide 40 MG Oral Tablet (Lasix) TAKE ONE TABLET BY MOUTH IN THE MORNING 30 Tablet 3 04/03/20 24 Active Insulin Glargine Solostar 100 UNIT/ML Subcutaneous Solution Pen-injector (Lantus SoloStar) Inject 10 Units under the skin daily. 15 mL 3 04/19/20 Active Pen [place] 32G X 4 MM Use as directed. Use to inject insulin once daily. 100 Each 3 04/19/20 Active Additional Information Patient not taking.Reported on 06/20/2024 Probiotic & Acidophilus Ex St Oral Capsule Take 1 Capsule by mouth in the morning and 1 Capsule at noon and 1 Capsule in the evening. Take with meals. Active Mupirocin 2 % External Ointment (Bactroban) Apply topically to affected area 3 times a day. At hospital discharge 22 g 1 06/03/20 24 Active Mupirocin 2 % External Ointment (Bactroban) Apply topically to affected area 3 times a day. At hospital discharge 08/29/20 024 Discontinued(Re fill) Tamsulosin HCl 0.4 MG Oral Capsule (Flomax)Indication s:Urinary retention One daily 30 Capsule 5 10/24/20 024 Discontinued documented as of this encounter (statuses as of 06/28/2024) Active Problems Problem Noted Date Diagnosed Date [...] as of this encounter (statuses as of 06/28/2024) Resolved Problems Problem Noted Date Diagnosed Date [...] as of this encounter (statuses as of 06/28/2024) Immunizations Name Administration Dates Next Due COVID-19 [...] lent, No Preserve, IM 07/30/2023,06/30/2022,08/04/2017,07/29,08/30/2015 Seasonal Influenza, Trivalen t, (IIV3), PF, (Fluzone) 07/30/2019 Seasonal Influenza, Trivalen t, (IIV3), with Preserv, (Fluzone) 07/30/2014,08/28/2013,08/13/2012,07/13,08/13/2009,08/13/2008 TD - Tetanus/Diptheria (ADULT) 10/30/2004 TDAP, [...] encounter Miscellaneous Notes * Telephone Encounter - Carter Car MD - 06/03/2024 4:18 PM EDT Signed Prescriptions: Disp Refills Mupirocin 2 % External Ointment (Bactroban)22 g 1 Sig: Apply topically to affected area 3 times a day. At hospital discharge Authorizing Provider: CARTER CAR * Telephone Encounter - Analia Maldonado RN - 05/31/2024 3:20 PM EDT Spoke to patient for ISSA and states he needs a RF. Patient states he gets a lesion on his penis when it gets warm out and the oint seems to clear it up. Patient is scheduled for HD on 06/04/24 Pending Prescriptions: Disp Refills Mupirocin 2 % External Ointment (Bactroba*22 g 1 Sig: Apply topically to affected area 3 times a day. At hospital discharge will need sent to [facility], [address] [place] documented in this encounter Plan of Treatment Upcoming Encounters Date Type Department Care Team (Latest Contact Info) Description 07/05/2024 12:00 PM EDT Office Visit Family Medicine [address] [place] [phone] Krsytian Palomo MD [address] [place] [address] [place] [address] 07/08/2024 11:45 AM EDT Imaging [facility] Cardiology, [address] [place] [phone] , Excess Time Radiology [address] [place] [address] [place] [id number] 07/12/2024 11:00 AM EDT Office Visit Pharmacy, [address] [place] [phone] [place] [address] 07/19/2024 1:45 PM EDT Imaging Radiology [address], [address] [place] [address] 09/05/2024 2:11 PM EST Hospital Encounter OR [facility], Operating Room, [facility] - 4th Floor [address] [place] [phone] Jayla Armstrong MD [address] [place] [address] 09/05/2024 2:11 PM EST - 09/05/2024 2:47 PM EST Surgery OR [facility], Operating Room, [facility] - 4th Floor [address] [place] [phone] Jayla Armstrong MD [address] [place] [address] ESOPHAGOGASTRODUODENOSCOPY (EGD), FLEXIBLE, TRANSORAL, DIAGNOSTIC 10/18/2024 10:30 AM EST Office Visit Gastroenterology , [facility] [address] [facility] [place] [address] Ren Pineda CRNP [address] [facility] [place] [address] Scheduled Procedures Name Priority Associated Diagnoses Date/Ti me ESOPHAGOGASTRODUODENOSCOPY ( EGD), FLEXIBLE, TRANSORAL, DIAGNOSTIC Rios's esophagus 09/05/2024 2:11 PM EST COLONOSCOPY FLEXIBLE PROXIMA L DIAGNOSTIC Recall Family history of colon cancer Health Maintenance Due Date Last Done Comments Cologuard 2009 Sigmoidoscopy 2009 Fecal Occult Blood Test 02/26/2011 02/26/2010 Zoster Vaccines (1 of 2) 2014 Pneumococcal Vaccine: Pediatrics (0 to 5 Years) and At-Risk Patients (6 to 64 Years) (2 of 2 - PCV) 12/24/2014 12/24/2013 Depression Screening 05/21/2021 05/21/2020 DTap/Tdap Vaccines (2 - Td or Tdap) 07/13/2021 [...] 09/18/2023, Additional history exists GFR 06/18/2025 06/18/2024, 08/0 03/2024, 06/01/2024, Additional history exists Lipid Panel [...] this encounter Medical Devices Implanted Type Area Chronic Disease Epidemiologist Device Identifier Shelf Expiration Date Model / Serial / Lot Lipiodol Injection - [id number] Implanted:Qty: 1 on 08/02/2023 at [facility] 04/28/2026 [id number] Syr Pf 2ml Embospheres 100-300 - [id number] Implanted:Qty: 1 on 08/02/2023 at [facility] [employer] [id number] 02/26/2026 [id number] / / [id number] Syr Pf 2ml Embospheres 100-300 - [id number] Implanted:Qty: 1 on 04/11/2024 at [facility] [employer] [id number] 12/27/2026 [id number] / / [id number] Lipiodol Injection - [id number] Implanted:Qty: 1 on 04/11/2024 at [facility] [employer] [id number] -2 / / documented as of this encounter Care Teams Novelty Twister Tender Relationship Specialty Start Date End Date Krystian Palomo MD [address] [place] [address] [place] [address] PCP - General Family Medicine 12/22/23 documented as of this encounter
--- NOTE | 2024-06-29 19:20 | Emergency Department Note ---
Impression & Plan Dizziness, Acute hyponatremia, Elevated lactic acid level, Acute dehydration ED Provider Note HISTORY OF PRESENT ILLNESS: Patient is a 58-year-old male presenting from home with dizziness. Patient reports that he just got discharged from the hospital yesterday. He reports that today every time he sits up or tries to stand up he gets very dizzy like he is going to pass out. Reports that he got very lightheaded walking in his hallway to try to get to the bathroom and ran into the wall and lowered himself to the ground. He called 911. On EMS arrival, the patient was found to be hypotensive with a systolic blood pressure in the 50s. They got IV access and started giving the patient fluids. On arrival to the ER, the patient is denying any chest pain or shortness of breath. Denies any recent fevers. Denies any nausea, vomiting or abdominal pain. ROS: as above PHYSICAL EXAM: Constitutional: Patient appears in no acute distress. HENT: Head: Normocephalic and atraumatic. Eyes: EOMI, PERRL Mouth/Throat: Mucous membranes moist. Neck: Trachea midline. Neck supple. Cardiovascular: Tachycardic with regular rhythm. No murmurs, rubs or gallops. Intact distal pulses. Pulmonary/Chest: No respiratory distress. Breath sounds clear and equal bilaterally. No wheezes or rales. Abdominal: Abdomen soft, no tenderness, rebound or guarding Musculoskeletal: No edema, tenderness or deformity noted. Skin: Warm and dry. No rash, erythema, pallor or cyanosis Psychiatric: Appropriate mood and affect for situation. Neurological: Alert and keenly responsive. CN II-XII grossly intact, moving all extremities equally and fully. MDM: - Vitals signs showed tachycardia - History obtained via patient. History as above. - Chronic conditions affecting care: GONZALES cirrhosis; hepatocellular carcinoma; DM-2; HLD; thrombocytopenia - Differential diagnoses include, but are not limited to: Dehydration; electrolyte abnormality; ACS; dysrhythmia; intracranial hemorrhage; UTI - Order placed for continuous cardiac monitoring. At this time, monitor showed rate of 89 bpm with normal sinus rhythm, per my interpretation. - External medical records reviewed. Discharge summary dated 06/28/2024 was reviewed. Patient was admitted that time for acute hyponatremia. He has acute on chronic hyponatremia and had sodiums between 1 20-1 22 over the last few days. His Lasix and Aldactone were held and then he was started on torsemide 40 mg BID - EKG interpreted by myself showed normal sinus rhythm. Rate tachycardic at 103 bpm. QT 392. No acute ischemic changes. - Laboratory workup interpreted by myself showed normal WBC; anemia (Hgb 10.5); thrombocytopenia (plt 78); supratherapeutic INR (1.5); elevated lactate (3.6); hyponatremia (Na 121); hypocalcemia (Ca 8.5); elevated glucose (201); normal troponin; normal TSH - Patient given 1L NS with EMS. Repeat lactate down to 1.9. - UA negative for infection - Viral respiratory panel negative. - CXR negative for pneumonia, per my interpretation. - CT head wo contrast negative for acute intracranial pathology. - CT abdomen/pelvis with IV contrast showed cirrhosis with manifestations of portal hypertension, including variceal formation and splenomegaly. Noted to have hypodense hepatic lesion. - Patient's dizziness and elevated lactate may be secondary to hypovolemia. He was given a liter of fluid with EMS prehospital with improvement in his blood pressure and lactic acid levels. Will admit to hospital service for further evaluation. - Discussion was had with cyanide case hardener about patient's case and need for admission - Hospitalist, Dr. Hernandez, consulted for admission - [facility] and management. ASSESSMENT AND PLAN: Diagnosis: Dizziness; elevated lactic acid level; acute hyponatremia; acute dehydration Plan: Admit Past Med/Surg History Problem List (Updated 06/29/24 @ 22:01 by Miracle Jacobsen MD) Acute dehydration (Acute) Elevated lactic acid level (Acute) Acute hyponatremia (Acute) Dizziness (Acute) Acute hepatic encephalopathy (Acute) Acute hyponatremia (Acute) Ureterolithiasis Medical non-compliance (Acute) Hyperammonemia (Acute) Acute hyperglycemia (Acute) Acute hyponatremia (Acute) Ascites (Acute) Urinary retention Cirrhosis (Acute) UTI (urinary tract infection) Sepsis Abdominal pain (Acute) Morbid obesity Hepatic encephalopathy Acute hepatic encephalopathy (Acute) Acute alteration in mental status (Acute) Pancytopenia (Acute) Encounter for screening colonoscopy Encounter for pre-operative examination Mid back pain Fall due to slipping on ice or snow Right rib fracture Ascites (Acute) Hepatocellular carcinoma possibly carcinogenic - pt unsure if it has been confirmed. 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 (Acute) Thrombocytopenia Hyperlipidemia Gout Diabetes mellitus, type 2 NIDDM Medical History Pulmonary hypertension Diabetes mellitus NAFLD (nonalcoholic fatty liver disease) Chronic hyponatremia Dizziness r/t the cirrhosis - using a cane at this time. "if i get up to fast". S/P abdominal paracentesis Fracture of rib of right side 2013 Anaplasmosis 2019 Acute hepatic encephalopathy Cardiac murmur HX Hypertension Right rib fracture hx ~2013/2014. 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 Required: No Beliefs That Will Affect Care: None marital status: Single Current Living Situation: Parent and Family Current Living Situation Comment: With brother and mother Feels Safe at Home: Yes Assistive Devices: None Allergies Allergies Allergy/AdvReac Type Severity Reaction Status Date / Time aspirin AdvReac Intermediate NOSE Verified 06/29/24 20:54 BLEEDS--IF TAKES REGULARLY salicylates AdvReac Intermediate NOSE BLEEDS Verified 06/29/24 20:54 Home Meds Home Medications Medication Instructions Recorded Confirmed allopurinol 300 mg tablet 300 mg PO QAM 06/03/19 06/29/24 metformin 500 mg tablet 500 mg PO BIDM 06/03/19 06/29/24 multivitamin 1 tab PO QAM 06/03/19 06/29/24 atorvastatin 20 mg tablet 20 mg PO QAM 04/21/21 06/29/24 ascorbic acid (vitamin C) 1,000 mg 1 g PO QAM 08/27/23 06/29/24 tablet (Vitamin C) tamsulosin 0.4 mg capsule 0.4 mg PO DAILY 10/04/23 06/29/24 rifaximin 550 mg tablet (Xifaxan) 550 mg PO BID 01/02/24 06/29/24 omeprazole 20 mg capsule,delayed 20 mg PO DAILYBB 02/27/24 06/29/24 release mupirocin 2 % topical ointment 1 applic EXT TID PRN Wound Care 06/21/24 06/29/24 Lactobacillus acidophilus 10 10,000 mmu cells PO TID 06/29/24 06/29/24 billion cell capsule (Probiotic) insulin glargine 100 unit/mL (3 10 unit subcut DAILY 06/29/24 06/29/24 mL) subcutaneous pen (Lantus Solostar U-100 Insulin) midodrine 2.5 mg tablet 2.5 mg PO TID 06/29/24 06/29/24 spironolactone 100 mg tablet 100 mg PO DAILY 06/29/24 06/29/24 Previous Rx's Medication Instructions Recorded lactulose 20 gram/30 mL oral 45 g (67.5 mL) PO TID Cirrhosis 30 02/29/24 solution days #3,000 mL potassium chloride 10 mEq 20 meq (2 x 10 mEq) PO BID 30 days 06/28/24 tablet,extended release(part/cryst) #120 tabs sodium chloride 1,000 mg soluble 1,000 mg PO BID 30 days #60 tabs 06/28/24 tablet torsemide 20 mg tablet 40 mg (2 x 20 mg) PO BID 30 days 06/28/24 #120 tabs Results & Data (ED) Vital Signs Vital Signs - 24 hr 06/29/24 18:54 06/29/24 19:00 06/29/24 19:00 Temperature 36.5 C Temperature Source Oral Pulse Rate 106 H 102 H Pulse Rate [Apical] Pulse Rhythm Regular Pulse Rhythm [Apical] Pulse Strength Normal Pulse Strength [Apical] Respiratory Rate 14 Respiratory Effort / Characteristics Non-Labored Spontaneous Respiratory Depth Normal Respiratory Pattern Regular Blood Pressure 108/63 Blood Pressure [Left Arm] Blood Pressure Mean 78 Blood Pressure Mean [Left Arm] Blood Pressure Position Lying Blood Pressure Position [Left Arm] Pulse Oximetry 100 100 Oxygen Delivery Method Room Air Room Air Sepsis Recent Fever Within 48 Hours No Sepsis New/Unexplained Change in Mental Status No Sepsis Action Taken by Nursing No Action Required 06/29/24 19:13 06/29/24 19:22 06/29/24 21:14 Temperature Temperature Source Pulse Rate 106 H Pulse Rate [Apical] 95 H 89 Pulse Rhythm Regular Pulse Rhythm [Apical] Regular Regular Pulse Strength Pulse Strength [Apical] Normal Normal Respiratory Rate 16 16 16 Respiratory Effort / Characteristics Non-Labored Spontaneous Non-Labored Spontaneous Respiratory Depth Normal Normal Respiratory Pattern Regular Regular Blood Pressure Blood Pressure [Left Arm] 109/61 116/71 Blood Pressure Mean Blood Pressure Mean [Left Arm] 77 86 Blood Pressure Position Blood Pressure Position [Left Arm] Lying Lying Pulse Oximetry 100 100 97 Oxygen Delivery Method Room Air Room Air Room Air Sepsis Recent Fever Within 48 Hours Sepsis New/Unexplained Change in Mental Status Sepsis Action Taken by Nursing Laboratory Data 06/29/24 19:44 06/29/24 19:11 Lab Results 06/29/24 06/29/24 06/29/24 Range/Units 19:11 19:44 21:30 WBC 5.52 (4.8-10.8) K/ul RBC 2.85 L (4.70-6.10) M/uL Hgb 10.5 L (14.0-18.0) g/dl Hct 28.7 L (42.0-52.0) % MCV 100.7 H (80.0-100.0) fL MCH 36.8 H (25.0-34.0) pg MCHC 36.6 H (32.0-36.0) g/dL RDW Std Deviation 53.9 H (36.4-46.3) fL RDW Coeff of [place] 14.6 H (11.5-14.5) % Plt Count 78 L (130-400) K/uL MPV 10.7 (9.4-12.4) fL Immature Gran % (Auto) 0.7 % Neut % (Auto) 63.3 % Lymph % (Auto) 10.7 % [place] % (Auto) 21.7 % Eos % (Auto) 2.5 % Baso % (Auto) 1.1 % Neut # (Auto) 3.49 (1.40-6.50) K/uL Lymph # (Auto) 0.59 L (1.20-3.40) K/uL [place] # (Auto) 1.20 H (0.11-0.59) K/uL Eos # (Auto) 0.14 (0.00-0.50) K/uL Baso # (Auto) 0.06 (0.00-0.20) K/uL Immature Gran # (Auto) 0.04 (0.01-0.20) K/uL PT 16.1 H (9.0-12.0) Seconds INR 1.5 H (0.9-1.1) Sodium 121 L (136-145) mmol/L Potassium 4.0 (3.5-5.1) mmol/L Chloride 92 L (98-107) mmol/L Carbon Dioxide 22 (21-32) mmol/L Anion Gap 7 (3-11) BUN 24 H (6-23) mg/dl Creatinine 0.99 (0.6-1.4) mg/dl Est Cr Clr Drug Dosing 100.9 ml/min Est GFR ( Amer) 96.2 ml/min Est GFR (Non-Af Amer) 83.0 ml/min BUN/Creatinine Ratio 24.2 H (10-20) Glucose 201 H (70-99(Fasting)) mg/dl Lactate 3.6 H* 1.9 (0.4-2.0) mmol/L Calcium 8.5 L (8.6-10.3) mg/dl Magnesium 1.6 L (1.7-2.4) mg/dl Total Bilirubin 2.7 H (0.2-1.0) mg/dl AST 71 H (13-39) U/L ALT 45 (7-52) U/L Alkaline Phosphatase 134 H (34-104) U/L Ammonia 35.0 (18-72) umol/L Total Creatine Kinase 120 (30-223) U/L Troponin I High Sens 12.5 (0-20) pg/ml Total Protein 6.5 (6.0-8.3) gm/dl Albumin 2.7 L (3.4-5.0) gm/dl Globulin 3.8 (2.5-4.0) gm/dl Albumin/Globulin Ratio 0.7 L (0.9-2) TSH 0.784 (0.300-4.500) uIu/ml Urine Color Yellow Urine Appearance Clear (Clear) Urine pH 7.0 (4.5-7.5) Ur Specific [place] 1.009 (1.000-1.030) Urine Protein Negative (Negative) Urine Glucose (UA) Negative (Negative) Urine Ketones Negative (Negative) Urine Blood Negative (Negative) Urine Nitrite Negative (Negative) Urine Bilirubin Negative (Negative) Urine Urobilinogen Negative (Negative) Ur Leukocyte Esterase Negative (Negative) Adenovirus (PCR) Not Detected (NotDetected) B. pertussis DNA (PCR) Not Detected (NotDetected) B.parapertussis DNA PCR Not Detected (NotDetected) C. pneumoniae DNA (PCR) Not Detected (NotDetected) Coronavirus OC43 (PCR) Not Detected (NotDetected) Coronavirus HKU1 (PCR) Not Detected (NotDetected) Coronavirus 229E (PCR) Not Detected (NotDetected) SARS-CoV-2 (PCR) Not Detected (NotDetected) Coronavirus NL63 (PCR) Not Detected (NotDetected) Human Metapneumovir PCR Not Detected (NotDetected) Influenza Type A (PCR) Not Detected (NotDetected) Influenza Type B (PCR) Not Detected (NotDetected) M. pneumoniae (PCR) Not Detected (NotDetected) Parainfluenza 1 (PCR) Not Detected (NotDetected) Parainfluenza 2 (PCR) Not Detected (NotDetected) Parainfluenza 3 (PCR) Not Detected (NotDetected) Parainfluenza 4 (PCR) Not Detected (NotDetected) RSV (PCR) Not Detected (NotDetected) Entero/Rhino (PCR) Not Detected (NotDetected) Administered Medications Discontinued Medications Ioversol (Optiray 320 100ml) 93 ml IV ONCE ONE Stop: 06/29/24 19:34 Last Admin: 06/29/24 19:34 Dose: 93 ml Documented By: JARET Imaging Data Radiologist's Impression: Chest X-Ray 06/29/24 19:02 XR chest 1V portable CLINICAL HISTORY: weakness COMPARISON STUDY: Chest radiograph and chest CT June 21, 2024. FINDINGS: Lung volumes are normal. Lungs are clear. There is no pneumothorax or pleural effusion. Cardiac size is normal. Mediastinal contours are normal. There is no evidence for pulmonary edema. IMPRESSION: No acute cardiopulmonary findings. ACT 112: Negative or not required by law. Electronically signed by: Issac Rankin M.D. 06/29/2024 7:[address] 06/29/24 19:02 CT OF THE HEAD WITHOUT CONTRAST CLINICAL HISTORY: Weakness. COMPARISON STUDY: Head CT June 22, 2024. CT DOSE: 703.85 mGy.cm TECHNIQUE: Helical axial images of the head were obtained without IV contrast. Automated exposure control was utilized for the study. A dose lowering technique was utilized adhering to the principles of ALARA. FINDINGS: No acute intracranial hemorrhage, midline shift or mass effect is present. The ventricular system is unremarkable. The basal cisterns are patent. No extra-axial collections are present. There are no findings to suggest acute dural sinus thrombosis or acute territorial infarct. No significant calvarial abnormalities are present. Visualized portions of the sinuses and mastoid air cells are clear. IMPRESSION: No acute intracranial findings. ACT 112: Negative or not required by law. Electronically signed by: Issac Rankin M.D. 06/29/2024 7:32 PM Abdomen/Pelvis CT 06/29/24 19:29 CT OF THE ABDOMEN AND PELVIS WITH CONTRAST CLINICAL HISTORY: Abdominal pain. COMPARISON STUDY: CT of the abdomen and pelvis June 01, 2024. TECHNIQUE: Following IV administration of 93 mL of Optiray, axial images of the abdomen and pelvis were obtained from the lung bases to the proximal femurs. Images were reviewed in the axial, sagittal, and coronal planes. IV contrast was administered without complication. Automated exposure control was utilized for the study. A dose lowering technique was utilized adhering to the principles of ALARA. CT DOSE: 1717.1 mGy.cm FINDINGS: Lung bases are unremarkable. No pneumatosis, free air or portal venous gas is present. The liver is cirrhotic. The main and left portal veins are patent. The right portal vein is patent but diminutive. This is unchanged. A 1.4 cm hypodense segment 5 hepatic lesion on image 101 of 465 is noted. There are calcifications within the right hepatic lobe. These are benign. A small amount of ascites is noted. Varices formation is again noted as well as mild splenomegaly. Small right renal calculi are present. There are no ureteral calculi. There is no hydronephrosis. Adrenal glands, left kidney and pancreas are unremarkable. There is no evidence for a bowel obstruction. A Mcmillan balloon within the bladder is present. The appendix is normal. There are no acute fractures within the visualized skeletal structures. No fluid collections are present. Mesenteric stranding is likely related to portal hypertension. This is unchanged. Mild right colon wall thickening may also be due to portal hypertension. IMPRESSION: 1. No definite acute process within the abdomen or pelvis. 2. Cirrhosis with manifestations of portal hypertension including varices formation, splenomegaly and a small amount of ascites. 3. 1.4 cm hypodense segment 5 hepatic lesion. This measures above water attenuation. This is indeterminate, particularly given cirrhosis. Washout lesion on this portal venous phase study cannot be excluded. Nonemergent liver protocol MRI is recommended to exclude a small hepatocellular carcinoma. 4. Right nephrolithiasis. No ureteral calculi. No hydronephrosis. ACT 112: Positive. There are findings on this exam that require communication between the performing entity and the patient following Patient Test Result Information Act ([place] Act 112) guidelines. Electronically signed by: Issac Rankin M.D. 06/29/2024 7:56 PM Discharge Plan Visit Data Chief Complaint: Weakness Stated Complaint: WEAKNESS, UNABLE TO STAND, DIZZINESS ED Provider: Miracle Jacobsen Discharge Problem: Dizziness, Acute hyponatremia, Elevated lactic acid level, Acute dehydration Forms Stand Alone Forms: My [facility] [employer] Prescriptions Prescriptions: No Action metformin 500 mg Tablet 500 mg PO BIDM allopurinol 300 mg Tablet 300 mg PO QAM multivitamin Tablet 1 tab PO QAM Rx Instructions: NOT ON PT'S MED LIST, ON [facility] MED LIST atorvastatin 20 mg tablet 20 mg PO QAM Rx Instructions: NOT ON PT'S MED LIST, ON [facility] MED LIST ascorbic acid (vitamin C) [Vitamin C] 1,000 mg Tablet 1 g PO QAM tamsulosin 0.4 mg capsule 0.4 mg PO DAILY Rx Instructions: NOT ON PT'S MED LIST, ON [facility] MED LIST Xifaxan 550 mg tablet 550 mg PO BID spironolactone 100 mg tablet 100 mg PO DAILY Rx Instructions: NOT ON PT'S MED LIST, ON [facility] MED LIST insulin glargine [Lantus Solostar U-100 Insulin] 100 unit/mL (3 mL) Insulin Pen 10 unit SUBCUT DAILY Rx Instructions: NOT ON PT'S MED LIST, ON [facility] MED LIST Probiotic 10 billion cell Capsule 10,000 mmu cells PO TID Rx Instructions: NOT ON PT'S MED LIST, ON [facility] MED LIST midodrine 2.5 mg tablet 2.5 mg PO TID omeprazole 20 mg capsule,delayed release(DR/EC) 20 mg PO DAILYBB lactulose 20 gram/30 mL solution 45 g PO TID 30 Days Qty: 3000 1RF Rx Instructions: Adjust dose up or down to maintain 3-4 loose BMs per day mupirocin 2 % ointment 1 applic EXT TID PRN (Reason: Wound Care) Rx Instructions: NOT ON PT'S MED LIST, ON [facility] MED LIST sodium chloride 1,000 mg Tablet,Soluble 1,000 mg PO BID 30 Days Qty: 60 0RF torsemide 20 mg tablet 40 mg PO BID 30 Days Qty: 120 0RF Rx Instructions: 0800 & 1400 potassium chloride 10 mEq Tablet,Er Particles/Crystals 20 meq PO BID 30 Days Qty: 120 0RF Referrals Referrals: Krystian Palomo MD [Primary Care Provider] -
[2024-06-29 19:30] LABS: Appearance Urine Clear (Clear); Bilirubin Urine Negative (Negative); Blood Urine Negative (Negative); Color Urine Yellow; Glucose Urine UA Negative (Negative); Ketones Urine Negative (Negative); Leukocyte Esterase Urine Negative (Negative); Nitrite Urine Negative (Negative); Protein Urine Negative (Negative); Specific Gravity Urine 1.009 (1.000-1.030); Urobilinogen Urine Negative (Negative)
--- NOTE | 2024-06-29 19:33 | CT Scan Report ---
CT OF THE HEAD WITHOUT CONTRAST CLINICAL HISTORY: Weakness. COMPARISON STUDY: Head CT June 22, 2024. CT DOSE: 703.85 mGy.cm TECHNIQUE: Helical axial images of the head were obtained without IV contrast. Automated exposure con trol was utilized for the study. A dose lowering technique was utilized adhering to the principles o f ALARA. FINDINGS: No acute intracranial hemorrhage, midline shift or mass effect is present. The ventricular system is unremarkable. The basal cisterns are patent. No extra-axial collections are present. There are no findings to suggest acute dural sinus thrombosis or acute territorial infarct. No significant calvarial abnormalities are present. Visualized portions of the sinuses and mastoid air cells are danny ar. IMPRESSION: No acute intracranial findings. ACT 112: Negative or not required by law. Electronically signed by: Issac Rankin M.D. 06/29/2024 7:32 PM
[2024-06-29] MEDS: OPTIRAY 320 100ml IV ONE (19:34)
--- NOTE | 2024-06-29 19:34 | XRay Report ---
XR chest 1V portable CLINICAL HISTORY: weakness COMPARISON STUDY: Chest radiograph and chest CT June 21, 2024. FINDINGS: Lung volumes are normal. Lungs are clear. There is no pneumothorax or pleural effusion. Car diac size is normal. Mediastinal contours are normal. There is no evidence for pulmonary edema. IMPRESSION: No acute cardiopulmonary findings. ACT 112: Negative or not required by law. Electronically signed by: Issac Rankin M.D. 06/29/2024 7:33 PM
[2024-06-29 19:39] LABS: Albumin Globulin Ratio 0.7 (0.9-2); Albumin Level 2.7 gm/dl (3.4-5.0); BUN Creatinine Ratio 24.2 (10-20); Bilirubin,Total 2.7 mg/dl (0.2-1.0); Calcium 8.5 mg/dl (8.6-10.3); Creatinine Clr Calc Pharmacy 100.9 ml/min; Est GFR (African American) 96.2 ml/min; Globulin 3.8 gm/dl (2.5-4.0); Magnesium 1.6 mg/dl (1.7-2.4); Total Protein 6.5 gm/dl (6.0-8.3)
[2024-06-29 19:44] LABS: Troponin I High Sensitivity 12.5 pg/ml (0-20)
[2024-06-29 19:54] LABS: Thyroid Stimulating Hormone 0.784 uIu/ml (0.300-4.500)
--- NOTE | 2024-06-29 19:59 | CT Scan Report ---
CT OF THE ABDOMEN AND PELVIS WITH CONTRAST CLINICAL HISTORY: Abdominal pain. COMPARISON STUDY: CT of the abdomen and pelvis June 01, 2024. TECHNIQUE: Following IV administration of 93 mL of Optiray, axial images of the abdomen and pelvis we re obtained from the lung bases to the proximal femurs. Images were reviewed in the axial, sagittal, and coronal planes. IV contrast was administered without complication. Automated exposure control wa s utilized for the study. A dose lowering technique was utilized adhering to the principles of ALARA . CT DOSE: 1717.1 mGy.cm FINDINGS: Lung bases are unremarkable. No pneumatosis, free air or portal venous gas is present. The liver is cirrhotic. The main and left portal veins are patent. The right portal vein is patent but di minutive. This is unchanged. A 1.4 cm hypodense segment 5 hepatic lesion on image 101 of 465 is noted . There are calcifications within the right hepatic lobe. These are benign. A small amount of ascites is noted. Varices formation is again noted as well as mild splenomegaly. Small right renal calculi a re present. There are no ureteral calculi. There is no hydronephrosis. Adrenal glands, left kidney an d pancreas are unremarkable. There is no evidence for a bowel obstruction. A Mcmillan balloon within the bladder is present. The appendix is normal. There are no acute fractures within the visualized skele parker structures. No fluid collections are present. Mesenteric stranding is likely related to portal hy pertension. This is unchanged. Mild right colon wall thickening may also be due to portal hypertensio n. IMPRESSION: 1. No definite acute process within the abdomen or pelvis. 2. Cirrhosis with manifestations of portal hypertension including varices formation, splenomegaly and a small amount of ascites. 3. 1.4 cm hypodense segment 5 hepatic lesion. This measures above water attenuation. This is indeterm inate, particularly given cirrhosis. Washout lesion on this portal venous phase study cannot be exclu ded. Nonemergent liver protocol MRI is recommended to exclude a small hepatocellular carcinoma. 4. Right nephrolithiasis. No ureteral calculi. No hydronephrosis. ACT 112: Positive. There are findings on this exam that require communication between the performing entity and the patient following Patient Test Result Information Act ([place] Act 112) guidelines. Electronically signed by: Issac Rankin M.D. 06/29/2024 7:56 PM
[2024-06-29 20:05] LABS: Basophils # (auto) 0.06 K/uL (0.00-0.20); Basophils % (auto) 1.1 %; Eosinophils # (auto) 0.14 K/uL (0.00-0.50); Eosinophils % (auto) 2.5 %; Hematocrit (blood only) 28.7 % (42.0-52.0); Hemoglobin 10.5 g/dl (14.0-18.0); Immature Granulocytes # (auto) 0.04 K/uL (0.01-0.20); Immature Granulocytes % (auto) 0.7 %; Lymphocytes # (auto) 0.59 K/uL (1.20-3.40); Lymphocytes % (auto) 10.7 %; Mean Corpuscular Hemoglobin 36.8 pg (25.0-34.0); Mean Corpuscular Hgb Conc 36.6 g/dL (32.0-36.0); Mean Corpuscular Volume 100.7 fL (80.0-100.0); Mean Platelet Volume 10.7 fL (9.4-12.4); Monocytes % (auto) 21.7 %; Neutrophils # (auto) 3.49 K/uL (1.40-6.50); Neutrophils % (auto) 63.3 %; Platelet Count 78 K/uL (130-400); RDW Coefficient of Variation 14.6 % (11.5-14.5); RDW Standard Deviation 53.9 fL (36.4-46.3); Red Blood Count 2.85 M/uL (4.70-6.10); White Blood Count 5.52 K/ul (4.8-10.8)
[2024-06-29 20:18] LABS: Adenovirus PCR Not Detected (NotDetected); Bordetella parapertussis PCR Not Detected (NotDetected); Bordetella pertussis PCR Not Detected (NotDetected); Chlamydia pneumoniae PCR Not Detected (NotDetected); Coronavirus 229E PCR Not Detected (NotDetected); Coronavirus CoV-2 (COVID19)PCR Not Detected (NotDetected); Coronavirus HKU1 PCR Not Detected (NotDetected); Coronavirus NL63 PCR Not Detected (NotDetected); Coronavirus OC43PCR Not Detected (NotDetected); Human Metapneumovirus PCR Not Detected (NotDetected); Influenza A PCR Not Detected (NotDetected); Influenza B PCR Not Detected (NotDetected); Mycoplasma pneumoniae PCR Not Detected (NotDetected); Parainfluenza Virus 1 PCR Not Detected (NotDetected); Parainfluenza Virus 2 PCR Not Detected (NotDetected); Parainfluenza Virus 3 PCR Not Detected (NotDetected); Parainfluenza Virus 4 PCR Not Detected (NotDetected); Respiratory Syncytial VirusPCR Not Detected (NotDetected); Rhinovirus/Enterovirus PCR Not Detected (NotDetected)
[2024-06-29 20:27] LABS: INR 1.5 (0.9-1.1); Prothrombin Time 16.1 Seconds (9.0-12.0)
[2024-06-30] MEDS ORDERED: VANCOMYCIN CONSULT ACTIVE PRN (00:46)
[2024-06-30] MEDS ORDERED: PIPERACILLIN/TAZOBACTAM 4.5 GM/100 ML BAG IV STA (00:55)
[2024-06-30] MEDS: SODIUM CHLORIDE 0.9% 1,000 ML IV SCH (01:32)
[2024-06-30] MEDS: MAGNESIUM SULFATE / D5W 1 GM/100 ML BAG IV SCH (01:35)
--- NOTE | 2024-06-30 01:37 | History & Physical Report ---
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 Whenever he stands up and tries to ambulate he was feeling very dizzy and felt like going to pass out. Today while ambulating to bathroom had to hold onto the wall and lowered himself to the ground. He was living at his brother's house. He was using his brothers walker. He called EMS and per EMS his systolic blood pressure was in 50s. He was given 1 L fluid and blood pressure improved. Currently alert and oriented. Able to give his history. Denies any headache. No blurred vision. No runny nose or sore throat. No cough. Denies chest pain or shortness of breath. No nausea. No abdominal pain. Was not able to micturate status post sahu catheter in the ER. Says he had 4 bowel movements today ,taking lactulose. His rectal temperature 34 in the ER. Currently on Wendy hugger. Possible sepsis With hypotension and elevated lactic acid and hypothermia Initial lactic acid 3.6 and repeat is 1.9 UA is okay Respiratory bio fire negative Chest x-ray is okay No acute process on CT abdomen pelvis Will follow blood cultures Empiric Zosyn and Vanco with 48hr stop for now Gentle fluids His hypotension and elevated lactic acid possible from dehydration Giving gentle fluids and holding diuretics Close monitor Hypothermia On Wendy hugger TSH is okay Will monitor Hyponatremia Sodium 121 Was 122 at discharge Continue salt tablets Getting gentle fluids Close monitor the labs Nephrology consult in a.m. Hypomagnesia Will replace Wells liver cirrhosis Mild elevation of LFTs Follow repeat labs Ammonia level 35 Will continue home Xifaxan and lactulose Holding spironolactone and torsemide Monitor for volume overload Hepatocellular carcinoma status post ablation on 08/02/2023 CT scan today showing 1.4 cm hypodense segment 5 hepatic lesion needs follow-up. Nonemergent liver protocol MRI is recommended to exclude a hepatocellular carcinoma . Moderate aortic stenosis Pulm hypertension Monitor for volume overload Follow-up with cardiology Hyperlipidemia On statin Diabetes Continue home Lantus Hold metformin Sliding scale Will monitor History of gout on allopurinol Thrombocytopenia Platelets in the 70s From cirrhosis Will follow labs BPH On Flomax DVT prophylaxis SCDs Disposition Telemetry Full code. 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 Whenever he stands up and tries to ambulate he was feeling very dizzy and felt like going to pass out. Today while ambulating to bathroom had to hold onto the wall and lowered himself to the ground. He was living at his brother's house. He was using his brothers walker. He called EMS and per EMS his systolic blood pressure was in 50s. He was given 1 L fluid and blood pressure improved. Currently alert and oriented. Able to give his history. Denies any headache. No blurred vision. No runny nose or sore throat. No cough. Denies chest pain or shortness of breath. No nausea. No abdominal pain. Was not able to micturate status post sahu catheter in the ER. Says he had 4 bowel movements today ,taking lactulose. His rectal temperature 34 in the ER. Currently on Wendy hugger. Past medical history. As mentioned above Past surgical history. Colonoscopy. EGD. IR cancer chemoembolization. Social history. Former use of smokeless tobacco quit in 2004. No alcohol use. No drug use. Family history. Mother had colon cancer. Hypertension. Father had diabetes. Emphysema. Hypertension. Black lung. Corneal transplant. Brother has pacema ker. Diabetes. Heart attack. Hypertension. Hyperlipidemia. Liver disease. Sister has rheumatoid arthritis. Allergies Allergy/AdvReac Type Severity Reaction Status Date / Time aspirin AdvReac Intermediate NOSE Verified 06/29/24 20:54 BLEEDS--IF TAKES REGULARLY salicylates AdvReac Intermediate NOSE BLEEDS Verified 06/29/24 20:54 Home Medications Medication Instructions Recorded Confirmed Type allopurinol 300 mg tablet 300 mg PO QAM 06/03/19 06/29/24 History metformin 500 mg tablet 500 mg PO BIDM 06/03/19 06/29/24 History multivitamin 1 tab PO QAM 06/03/19 06/29/24 History atorvastatin 20 mg tablet 20 mg PO QAM 04/21/21 06/29/24 History ascorbic acid (vitamin C) 1,000 mg 1 g PO QAM 08/27/23 06/29/24 History tablet (Vitamin C) tamsulosin 0.4 mg capsule 0.4 mg PO DAILY 10/04/23 06/29/24 History rifaximin 550 mg tablet (Xifaxan) 550 mg PO BID 01/02/24 06/29/24 History omeprazole 20 mg capsule,delayed 20 mg PO DAILYBB 02/27/24 06/29/24 History release lactulose 20 gram/30 mL oral 45 g (67.5 mL) PO TID Cirrhosis 30 02/29/24 06/29/24 Rx solution days #3,000 mL mupirocin 2 % topical ointment 1 applic EXT TID PRN Wound Care 06/21/24 06/29/24 History potassium chloride 10 mEq 20 meq (2 x 10 mEq) PO BID 30 days 06/28/24 06/29/24 Rx tablet,extended release(part/cryst) #120 tabs sodium chloride 1,000 mg soluble 1,000 mg PO BID 30 days #60 tabs 06/28/24 06/29/24 Rx tablet torsemide 20 mg tablet 40 mg (2 x 20 mg) PO BID 30 days 06/28/24 06/29/24 Rx #120 tabs Lactobacillus acidophilus 10 10,000 mmu cells PO TID 06/29/24 06/29/24 History billion cell capsule (Probiotic) insulin glargine 100 unit/mL (3 10 unit subcut DAILY 06/29/24 06/29/24 History mL) subcutaneous pen (Lantus Solostar U-100 Insulin) midodrine 2.5 mg tablet 2.5 mg PO TID 06/29/24 06/29/24 History spironolactone 100 mg tablet 100 mg PO DAILY 06/29/24 06/29/24 History Past Med/Surg History Problem List (Updated 06/30/24 @ 02:07 by Luciano Hernandez MD) Sepsis Acute dehydration (Acute) Elevated lactic acid level (Acute) Acute hyponatremia (Acute) Dizziness (Acute) Acute hepatic encephalopathy (Acute) Acute hyponatremia (Acute) Ureterolithiasis Medical non-compliance (Acute) Hyperammonemia (Acute) Acute hyperglycemia (Acute) Acute hyponatremia (Acute) Ascites (Acute) Urinary retention Cirrhosis (Acute) UTI (urinary tract infection) Sepsis Abdominal pain (Acute) Morbid obesity Hepatic encephalopathy Acute hepatic encephalopathy (Acute) Acute alteration in mental status (Acute) Pancytopenia (Acute) Encounter for screening colonoscopy Encounter for pre-operative examination Mid back pain Fall due to slipping on ice or snow Right rib fracture Ascites (Acute) Hepatocellular carcinoma possibly carcinogenic - pt unsure if it has been confirmed. Liver cirrhosis secondary to WELLS (Acute) Thrombocytopenia Hyperlipidemia Gout Diabetes mellitus, type 2 NIDDM Medical History Pulmonary hypertension Diabetes mellitus NAFLD (nonalcoholic fatty liver disease) Chronic hyponatremia Dizziness r/t the cirrhosis - using a cane at this time. "if i get up to fast". S/P abdominal paracentesis Fracture of rib of right side 2013 Anaplasmosis 2020 Acute hepatic encephalopathy Cardiac murmur HX Hypertension Right rib fracture hx ~. Surgical History History of esophagogastroduodenoscopy (EGD) History of colonoscopy Family History Mother History of colonoscopy Brother Family history of diabetes mellitus Brother Family history of diabetes mellitus Grandmother (Paternal) Family history of diabetes mellitus Other No family history of adverse response to anesthesia Social History Smoking Status: Never smoker Tobacco Type: Smokeless Tobacco (Dip or Chew) Second Hand Exposure: No; Do You Dip or Chew Tobacco: Yes; Hx Alcohol Use: No Hx Substance Use: No Preferred Language: Canadian Communication Ability: Effective Earth Burner Required: No Beliefs That Will Affect Care: None marital status: Single Current Living Situation: Family Current Living Situation Comment: With brother and mother Feels Safe at Home: Yes Safety Concerns: Feels Safe At This Time Assistive Devices: Cane and Glasses Review of Systems Review of Systems: All systems reviewed & are unremarkable except as noted in HPI & below Physical Exam Physical Exam: General- Not in acute distress Head- atraumatic Eyes- PERRL. ENT- oropharynx dry Neck- supple, no JVD. Lungs- clear to auscultation, no wheezing or crackles Heart- regular rhythm; tachycardia, systolic murmur in aortic area, no gallop. Abdomen- normal bowel sounds, soft, nontender, no distension Extremities- no pretibial edema, no erythema seen. Neuro- alert, oriented PERRL, no facial palsy; no dysarthria; moves extremities. Results & Data Results & Data Vital Signs (Past 12 Hours) Vital Signs Temp Pulse Pulse Resp BP BP Pulse Ox 06/30/24 00:25 34.8 C L 100 H 115/76 96 06/29/24 22:56 92 H 06/29/24 21:14 89 16 116/71 97 06/29/24 19:22 95 H 16 109/61 100 06/29/24 19:13 106 H 16 100 06/29/24 19:00 100 06/29/24 19:00 36.5 C 102 H 14 108/63 100 06/29/24 18:54 106 H O2 Del Method 06/30/24 00:25 06/29/24 22:56 06/29/24 21:14 Room Air 06/29/24 19:22 Room Air 06/29/24 19:13 Room Air 06/29/24 19:00 Room Air 06/29/24 19:00 Room Air 06/29/24 18:54 Diagnostic Findings Laboratory Results WBC 5.52 K/ul (4.8-10.8) 06/29/24 19:44 RBC 2.85 M/uL (4.70-6.10) L 06/29/24 19:44 Hgb 10.5 g/dl (14.0-18.0) L 06/29/24 19:44 Hct 28.7 % (42.0-52.0) L 06/29/24 19:44 MCV 100.7 fL (80.0-100.0) H 06/29/24 19:44 MCH 36.8 pg (25.0-34.0) H 06/29/24 19:44 MCHC 36.6 g/dL (32.0-36.0) H 06/29/24 19:44 RDW Std Deviation 53.9 fL (36.4-46.3) H 06/29/24 19:44 RDW Coeff of Polo 14.6 % (11.5-14.5) H 06/29/24 19:44 Plt Count 78 K/uL (130-400) L 06/29/24 19:44 MPV 10.7 fL (9.4-12.4) 06/29/24 19:44 Immature Gran % (Auto) 0.7 % 06/29/24 19:44 Neut % (Auto) 63.3 % 06/29/24 19:44 Lymph % (Auto) 10.7 % 06/29/24 19:44 [place] % (Auto) 21.7 % 06/29/24 19:44 Eos % (Auto) 2.5 % 06/29/24 19:44 Baso % (Auto) 1.1 % 06/29/24 19:44 Neut # (Auto) 3.49 K/uL (1.40-6.50) 06/29/24 19:44 Lymph # (Auto) 0.59 K/uL (1.20-3.40) L 06/29/24 19:44 [place] # (Auto) 1.20 K/uL (0.11-0.59) H 06/29/24 19:44 Eos # (Auto) 0.14 K/uL (0.00-0.50) 06/29/24 19:44 Baso # (Auto) 0.06 K/uL (0.00-0.20) 06/29/24 19:44 Immature Gran # (Auto) 0.04 K/uL (0.01-0.20) 06/29/24 19:44 PT 16.1 Seconds (9.0-12.0) H 06/29/24 19:44 INR 1.5 (0.9-1.1) H 06/29/24 19:44 Sodium 121 mmol/L (136-145) L 06/29/24 19:11 Potassium 4.0 mmol/L (3.5-5.1) 06/29/24 19:11 Chloride 92 mmol/L (98-107) L 06/29/24 19:11 Carbon Dioxide 22 mmol/L (21-32) 06/29/24 19:11 Anion Gap 7 (3-11) 06/29/24 19:11 BUN 24 mg/dl (6-23) H 06/29/24 19:11 Creatinine 0.99 mg/dl (0.6-1.4) 06/29/24 19:11 Est Cr Clr Drug Dosing 100.9 ml/min 06/29/24 19:11 Est GFR ( Amer) 96.2 ml/min 06/29/24 19:11 Est GFR (Non-Af Amer) 83.0 ml/min 06/29/24 19:11 BUN/Creatinine Ratio 24.2 (10-20) H 06/29/24 19:11 Glucose 201 mg/dl (70-99(Fasting)) H 06/29/24 19:11 Lactate 1.9 mmol/L (0.4-2.0) 06/29/24 21:30 Calcium 8.5 mg/dl (8.6-10.3) L 06/29/24 19:11 Magnesium 1.6 mg/dl (1.7-2.4) L 06/29/24 19:11 Total Bilirubin 2.7 mg/dl (0.2-1.0) H 06/29/24 19:11 AST 71 U/L (13-39) H 06/29/24 19:11 ALT 45 U/L (7-52) 06/29/24 19:11 Alkaline Phosphatase 134 U/L (34-104) H 06/29/24 19:11 Ammonia 35.0 umol/L (18-72) 06/29/24 19:44 Total Creatine Kinase 120 U/L (30-223) 06/29/24 19:11 Troponin I High Sens 12.5 pg/ml (0-20) 06/29/24 19:11 Total Protein 6.5 gm/dl (6.0-8.3) 06/29/24 19:11 Albumin 2.7 gm/dl (3.4-5.0) L 06/29/24 19:11 Globulin 3.8 gm/dl (2.5-4.0) 06/29/24 19:11 Albumin/Globulin Ratio 0.7 (0.9-2) L 06/29/24 19:11 TSH 0.784 uIu/ml (0.300-4.500) 06/29/24 19:11 Urine Color Yellow 06/29/24 19:11 Urine Appearance Clear (Clear) 06/29/24 19:11 Urine pH 7.0 (4.5-7.5) 06/29/24 19:11 Ur Specific [place] 1.009 (1.000-1.030) 06/29/24 19:11 Urine Protein Negative (Negative) 06/29/24 19:11 Urine Glucose (UA) Negative (Negative) 06/29/24 19:11 Urine Ketones Negative (Negative) 06/29/24 19:11 Urine Blood Negative (Negative) 06/29/24 19:11 Urine Nitrite Negative (Negative) 06/29/24 19:11 Urine Bilirubin Negative (Negative) 06/29/24 19:11 Urine Urobilinogen Negative (Negative) 06/29/24 19:11 Ur Leukocyte Esterase Negative (Negative) 06/29/24 19:11 Adenovirus (PCR) Not Detected (NotDetected) 06/29/24 19:11 B. pertussis DNA (PCR) Not Detected (NotDetected) 06/29/24 19:11 B.parapertussis DNA PCR Not Detected (NotDetected) 06/29/24 19:11 C. pneumoniae DNA (PCR) Not Detected (NotDetected) 06/29/24 19:11 Coronavirus OC43 (PCR) Not Detected (NotDetected) 06/29/24 19:11 Coronavirus HKU1 (PCR) Not Detected (NotDetected) 06/29/24 19:11 Coronavirus 229E (PCR) Not Detected (NotDetected) 06/29/24 19:11 SARS-CoV-2 (PCR) Not Detected (NotDetected) 06/29/24 19:11 Coronavirus NL63 (PCR) Not Detected (NotDetected) 06/29/24 19:11 Human Metapneumovir PCR Not Detected (NotDetected) 06/29/24 19:11 Influenza Type A (PCR) Not Detected (NotDetected) 06/29/24 19:11 Influenza Type B (PCR) Not Detected (NotDetected) 06/29/24 19:11 M. pneumoniae (PCR) Not Detected (NotDetected) 06/29/24 19:11 Parainfluenza 1 (PCR) Not Detected (NotDetected) 06/29/24 19:11 Parainfluenza 2 (PCR) Not Detected (NotDetected) 06/29/24 19:11 Parainfluenza 3 (PCR) Not Detected (NotDetected) 06/29/24 19:11 Parainfluenza 4 (PCR) Not Detected (NotDetected) 06/29/24 19:11 RSV (PCR) Not Detected (NotDetected) 06/29/24 19:11 Entero/Rhino (PCR) Not Detected (NotDetected) 06/29/24 19:11 Impressions Chest X-Ray 06/29/24 19:02 XR chest 1V portable CLINICAL HISTORY: weakness COMPARISON STUDY: Chest radiograph and chest CT June 21, 2024. FINDINGS: Lung volumes are normal. Lungs are clear. There is no pneumothorax or pleural effusion. Cardiac size is normal. Mediastinal contours are normal. There is no evidence for pulmonary edema. IMPRESSION: No acute cardiopulmonary findings. ACT 112: Negative or not required by law. Electronically signed by: Issac Rankin M.D. 06/29/2024 7:[address] 06/29/24 19:02 CT OF THE HEAD WITHOUT CONTRAST CLINICAL HISTORY: Weakness. COMPARISON STUDY: Head CT June 22, 2024. CT DOSE: 703.85 mGy.cm TECHNIQUE: Helical axial images of the head were obtained without IV contrast. Automated exposure control was utilized for the study. A dose lowering technique was utilized adhering to the principles of ALARA. FINDINGS: No acute intracranial hemorrhage, midline shift or mass effect is present. The ventricular system is unremarkable. The basal cisterns are patent. No extra-axial collections are present. There are no findings to suggest acute dural sinus thrombosis or acute territorial infarct. No significant calvarial abnormalities are present. Visualized portions of the sinuses and mastoid air cells are clear. IMPRESSION: No acute intracranial findings. ACT 112: Negative or not required by law. Electronically signed by: Issac Rankin M.D. 06/29/2024 7:32 PM Abdomen/Pelvis CT 06/29/24 19:29 CT OF THE ABDOMEN AND PELVIS WITH CONTRAST CLINICAL HISTORY: Abdominal pain. COMPARISON STUDY: CT of the abdomen and pelvis June 01, 2024. TECHNIQUE: Following IV administration of 93 mL of Optiray, axial images of the abdomen and pelvis were obtained from the lung bases to the proximal femurs. I mages were reviewed in the axial, sagittal, and coronal planes. IV contrast was administered without complication. Automated exposure control was utilized for the study. A dose lowering technique was utilized adhering to the principles of ALARA. CT DOSE: 1717.1 mGy.cm FINDINGS: Lung bases are unremarkable. No pneumatosis, free air or portal venous gas is present. The liver is cirrhotic. The main and left portal veins are patent. The right portal vein is patent but diminutive. This is unchanged. A 1.4 cm hypodense segment 5 hepatic lesion on image 101 of 465 is noted. There are calcifications within the right hepatic lobe. These are benign. A small amount of ascites is noted. Varices formation is again noted as well as mild splenomegaly. Small right renal calculi are present. There are no ureteral calculi. There is no hydronephrosis. Adrenal glands, left kidney and pancreas are unremarkable. There is no evidence for a bowel obstruction. A Sahu balloon within the bladder is present. The appendix is normal. There are no acute fractures within the visualized skeletal structures. No fluid collections are present. Mesenteric stranding is likely related to portal hypertension. This is unchanged. Mild right colon wall thickening may also be due to portal hypertension. IMPRESSION: 1. No definite acute process within the abdomen or pelvis. 2. Cirrhosis with manifestations of portal hypertension including varices formation, splenomegaly and a small amount of ascites. 3. 1.4 cm hypodense segment 5 hepatic lesion. This measures above water attenuation. This is indeterminate, particularly given cirrhosis. Washout lesion on this portal venous phase study cannot be excluded. Nonemergent liver protocol MRI is recommended to exclude a small hepatocellular carcinoma. 4. Right nephrolithiasis. No ureteral calculi. No hydronephrosis. ACT 112: Positive. There are findings on this exam that require communication between the performing entity and the patient following Patient Test Result Information Act ([place] Act 112) guidelines. Electronically signed by: Issac Rankin M.D. 06/29/2024 7:56 PM ECG Additional Comments: ECG sinus tachycardia rate of 103. Nonspecific ST abnormalities. No significant changes found. QTc 513. Code Status & VTE Plan VTE Prophylaxis Plan VTE Prophylaxis will be ordered: Yes
[2024-06-30] MEDS ORDERED: MUPIROCIN 2% OINT 22 GM TUBE EXT PRN (02:36)
[2024-06-30] MEDS ORDERED: GLUCOSE 40% GEL 15 GM TUBE PO PRN (02:36)
[2024-06-30] MEDS ORDERED: CARBOHYDRATES FOR HYPOGLYCEMIA PO PRN (02:36)
[2024-06-30] MEDS ORDERED: NITROGLYCERIN SL 0.4 MG/TAB TAB SL PRN (02:36)
[2024-06-30] MEDS ORDERED: GLUCOSE 10 TAB/TUBE PO PRN (02:36)
[2024-06-30] MEDS ORDERED: GLUCAGON FOR INJ 1 MG VIAL SQ PRN (02:36)
[2024-06-30] MEDS ORDERED: DEXTROSE 50% 50 ML SYRINGE IV PRN (02:36)
[2024-06-30] MEDS: VANCOMYCIN HCL 2,250 MG in SODIUM CHLORIDE 0.9% 500 ML IV STA (02:53)
[2024-06-30] MEDS: PIPERACILLIN/TAZOBACTAM 4.5 GM/100 ML BAG IV ONE (03:29)
[2024-06-30] MEDS: PANTOprazole 40 MG TAB PO SCH (05:49)
[2024-06-30 06:12] LABS: Basophils # (auto) 0.04 K/uL (0.00-0.20); Basophils % (auto) 0.6 %; Eosinophils # (auto) 0.19 K/uL (0.00-0.50); Eosinophils % (auto) 2.8 %; Hematocrit (blood only) 28.5 % (42.0-52.0); Hemoglobin 10.5 g/dl (14.0-18.0); Immature Granulocytes # (auto) 0.03 K/uL (0.01-0.20); Immature Granulocytes % (auto) 0.4 %; Lymphocytes # (auto) 0.57 K/uL (1.20-3.40); Lymphocytes % (auto) 8.5 %; Mean Corpuscular Hemoglobin 36.6 pg (25.0-34.0); Mean Corpuscular Hgb Conc 36.8 g/dL (32.0-36.0); Mean Corpuscular Volume 99.3 fL (80.0-100.0); Mean Platelet Volume 11.1 fL (9.4-12.4); Monocytes % (auto) 16.4 %; Neutrophils # (auto) 4.79 K/uL (1.40-6.50); Neutrophils % (auto) 71.3 %; Platelet Count 63 K/uL (130-400); RDW Coefficient of Variation 14.3 % (11.5-14.5); RDW Standard Deviation 52.5 fL (36.4-46.3); Red Blood Count 2.87 M/uL (4.70-6.10); White Blood Count 6.72 K/ul (4.8-10.8)
[2024-06-30 06:22] LABS: Albumin Level 2.6 gm/dl (3.4-5.0); BUN Creatinine Ratio 20.4 (10-20); Bilirubin,Total 3.2 mg/dl (0.2-1.0); Calcium 7.9 mg/dl (8.6-10.3); Creatinine Clr Calc Pharmacy 102.9 ml/min; Est GFR (African American) 97.4 ml/min; Est GFR (Non-African American) 84.1 ml/min; Magnesium 2.1 mg/dl (1.7-2.4); Phosphorus 3.7 mg/dl (2.5-4.9); Potassium 3.7 mmol/L (3.5-5.1); Total Protein 6.3 gm/dl (6.0-8.3)
--- NOTE | 2024-06-30 07:28 | Electrocardiogram Report ---
Test Reason : Blood Pressure : */* mmHG Vent. Rate : 103 BPM Atrial Rate : 103 BPM P-R Int : 146 ms QRS Dur : 98 ms QT Int : 392 ms P-R-T Axes : 70 32 71 degrees QTcB Int : 513 ms Sinus tachycardia Nonspecific ST abnormality Abnormal ECG When compared with ECG of 21-Jun-2024 19:02, No significant change was found Confirmed by Nimesh Zavala ([id number]) on 06/30/2024 7:28:41 AM Referred By: Confirmed By: Nimesh Zavala
[2024-06-30] MEDS: INSULIN ASPART PER UNIT CHARGE SC SCH (08:50)
[2024-06-30] MEDS: LANTUS PER UNIT CHARGE SC SCH (08:51)
[2024-06-30] MEDS: PIPERACILLIN/TAZOBACTAM 4.5 GM/100 ML BAG IV SCH (08:52)
[2024-06-30] MEDS: LACTULOSE SYRUP 10 GM/15 ML BTL 960 ML PO SCH (08:52)
[2024-06-30] MEDS: TAMSULOSIN HCL 0.4 MG CAP PO SCH (08:53)
[2024-06-30] MEDS: MIDODRINE HCL 2.5 MG TAB PO SCH ×2 (08:53→17:08)
[2024-06-30] MEDS: ATORVASTATIN 20 MG TAB PO SCH (08:53)
[2024-06-30] MEDS: SODIUM CHLORIDE 1 GM TABLET PO SCH (08:53)
[2024-06-30] MEDS: allopurinoL 300 MG TAB PO SCH (08:53)
[2024-06-30] MEDS: ASCORBIC ACID 500 MG TAB PO SCH (08:53)
[2024-06-30] MEDS: rifAXIMin 550 MG TABLET PO SCH (08:53)
[2024-06-30] MEDS: MULTIVITAMIN TAB PO SCH (08:53)
[2024-06-30] MEDS ORDERED: NON-FORMULARY MEDICATION (Lactobacillus Acidophilus [Probiotic] 10 billion cell Capsule) PO SCH (09:00)
--- NOTE | 2024-06-30 11:02 | Pharmacy Report ---
Pharmacy [facility] Note - Date of Service June 30, 2024 - Assessment and Plan Assessment 58 year old M who presented with dizziness. Recent admission for acute hyponatremia, discharged on 06/28/24. Ordered empiric vanco + pip/tazo (x 48h) for possible sepsis; patient with hypotension, elevated lactate and hypothermia. Respiratory PCR panel negative, UA negative, MRSA nasal swab negative. Possible source of infection unclear at this time. Pertinent microbiologic data includes: * 06/30 BC - pending Plan Vancomycin * Loading dose: 2250 mg IV given 06/30 @ 0253 * Maintenance dose: 1500 mg IV every 12 hours * Regimen is predicted to achieve target AUC/JASON of 400-600 mg/L.hr * estimated AUC/JASON at steady state: 606 (anticipated to reach steady state on day 4) * Level will be obtained if therapy is continued beyond 48 hours Pharmacy will continue to follow and will adjust dose/frequency as necessary. Thank you.
[2024-06-30 11:36] LABS: BUN Creatinine Ratio 20.2 (10-20); Creatinine Clr Calc Pharmacy 101.9 ml/min; Est GFR (African American) 96.2 ml/min; Potassium 3.3 mmol/L (3.5-5.1)
[2024-06-30] MEDS: TORSEMIDE 20 MG TAB PO ONE (12:39)
[2024-06-30] MEDS: UREA (UREA-NA) 15 GM PACK PO SCH (12:39)
--- NOTE | 2024-06-30 12:41 | Hospitalist Progress Note ---
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 Whenever he stands up and tries to ambulate he was feeling very dizzy and felt like going to pass out. Today while ambulating to bathroom had to hold onto the wall and lowered himself to the ground. He was living at his brother's house. He was using his brothers walker. He called EMS and per EMS his systolic blood pressure was in 50s. He was given 1 L fluid and blood pressure improved. Patient recently hospitalized and discharged on 06/28 Hypotension likely related to medication changes Though there was concern for possible sepsis on presentation due to hypotension, elevated lactate, hypothermia; I have low suspicion for infection based on history and available findings Elevated lactate is not new and may be related to chronic liver disease and also on metformin Respiratory bio fire negative Chest x-ray is okay UA not suggestive of infection No acute process on CT abdomen pelvis Will follow blood cultures No leukocytosis Was started on empirical vanc and zosyn on admission. Will stop antibiotics for now and monitor Midodrine started during last admission increased to 5mg TID Chronic Hyponatremia Sodium 121 Was 122 at discharge Discussed with Gran[employer] Finisher Recommends repeating Uosm, sOsm, Sherly, continue salt tabs, start urea 15 bid, give one dose of torsemide 40mg, continue IVF, monitor BMP q6h Monitor electrolytes and replete appropriately Wells liver cirrhosis Mild elevation of LFTs Ammonia level 35 Continue home Xifaxan and lactulose Spironolactone was stopped last admission and lasix was changed to torsemide at the time Hepatocellular carcinoma status post ablation on 08/02/2023 CT scan today showing 1.4 cm hypodense segment 5 hepatic lesion needs follow-up. Nonemergent liver protocol MRI is recommended to exclude a hepatocellular carcinoma Moderate aortic stenosis Pulm hypertension Hyperlipidemia On statin Diabetes Continue home Lantus Hold metformin Sliding scale Will monitor History of gout on allopurinol Thrombocytopenia Platelets in the 70s From cirrhosis Monitor BPH On Flomax DVT prophylaxis SCDs Full code. I spent a total of 55 minutes coordinating, documenting and providing care for this patient excluding time spent in performance of separately billed services Admission and Anticipated Discharge Date Admission Date: June 30, 2024 Subjective Patient seen and examined Reported he had worsening orthostatic dizziness at home Denied any fever, chills, nausea, vomiting, abd pain, diarrhea Denied dysuria, freq, urgency, hematuria Physical Exam Constitutional: + well hydrated; no acute distress Eyes: PERRL, conjunctivae normal, anicteric sclerae ENMT: external ear and nose normal, oropharynx normal Respiratory: normal respiratory effort, lungs clear to auscultation Cardiovascular: Rate/Rhythm: regular rate and regular rhythm Gastrointestinal (Abdomen): Soft, mild distention, normal bowel sounds, no tenderness Musculoskeletal: No pedal edema Neurologic: PERRL, EOMI, accommodation nl, no face palsy, no dysarthria Psychiatric: A+Ox3, euthymic affect Results & Data Results & Data Vital Signs (Past 12 Hours) Vital Signs Temp Pulse Pulse Resp BP BP Pulse Ox 06/30/24 10:47 36.4 C L 90 20 101/62 100 06/30/24 07:00 36.4 C L 93 H 18 98/61 L 100 06/30/24 05:36 91 H 06/30/24 03:30 36.4 C L 97 H 16 106/69 99 06/30/24 02:34 36.6 C 95 H 16 105/62 100 06/30/24 02:26 99 H 06/30/24 01:50 90 16 109/68 97 06/30/24 01:38 35.4 C L O2 Del Method 06/30/24 10:47 Room Air 06/30/24 07:00 Room Air 06/30/24 05:36 06/30/24 03:30 Room Air 06/30/24 02:34 Room Air 06/30/24 02:26 06/30/24 01:50 Room Air 06/30/24 01:38 Laboratory Results Abnormal lab results 06/29/24 06/29/24 06/30/24 Range/Units 19:11 19:44 02:43 RBC 2.85 L (4.70-6.10) M/uL Hgb 10.5 L (14.0-18.0) g/dl Hct 28.7 L (42.0-52.0) % MCV 100.7 H (80.0-100.0) fL MCH 36.8 H (25.0-34.0) pg MCHC 36.6 H (32.0-36.0) g/dL RDW Std Deviation 53.9 H (36.4-46.3) fL RDW Coeff of Polo 14.6 H (11.5-14.5) % Plt Count 78 L (130-400) K/uL Lymph # (Auto) 0.59 L (1.20-3.40) K/uL [place] # (Auto) 1.20 H (0.11-0.59) K/uL PT 16.1 H (9.0-12.0) Seconds INR 1.5 H (0.9-1.1) Sodium 121 L (136-145) mmol/L Potassium (3.5-5.1) mmol/L Chloride 92 L (98-107) mmol/L BUN 24 H (6-23) mg/dl BUN/Creatinine Ratio 24.2 H (10-20) Glucose 201 H (70-99(Fasting)) mg/dl POC Glucose 166 H (70-99) mg/dl Osmolality (280-300) mOsm/kg Lactate 3.6 H* (0.4-2.0) mmol/L Calcium 8.5 L (8.6-10.3) mg/dl Magnesium 1.6 L (1.7-2.4) mg/dl Total Bilirubin 2.7 H (0.2-1.0) mg/dl Direct Bilirubin (0-0.2) mg/dl AST 71 H (13-39) U/L Alkaline Phosphatase 134 H (34-104) U/L Albumin 2.7 L (3.4-5.0) gm/dl Albumin/Globulin Ratio 0.7 L (0.9-2) 06/30/24 06/30/24 06/30/24 Range/Units 05:30 07:38 10:50 RBC 2.87 L (4.70-6.10) M/uL Hgb 10.5 L (14.0-18.0) g/dl Hct 28.5 L (42.0-52.0) % MCV (80.0-100.0) fL MCH 36.6 H (25.0-34.0) pg MCHC 36.8 H (32.0-36.0) g/dL RDW Std Deviation 52.5 H (36.4-46.3) fL RDW Coeff of Polo (11.5-14.5) % Plt Count 63 L (130-400) K/uL Lymph # (Auto) 0.57 L (1.20-3.40) K/uL [place] # (Auto) 1.10 H (0.11-0.59) K/uL PT (9.0-12.0) Seconds INR (0.9-1.1) Sodium 120 L 120 L (136-145) mmol/L Potassium 3.3 L (3.5-5.1) mmol/L Chloride 88 L 90 L (98-107) mmol/L BUN (6-23) mg/dl BUN/Creatinine Ratio 20.4 H 20.2 H (10-20) Glucose 217 H 156 H (70-99(Fasting)) mg/dl POC Glucose 187 H (70-99) mg/dl Osmolality 263 L (280-300) mOsm/kg Lactate (0.4-2.0) mmol/L Calcium 7.9 L 8.0 L (8.6-10.3) mg/dl Magnesium (1.7-2.4) mg/dl Total Bilirubin 3.2 H (0.2-1.0) mg/dl Direct Bilirubin 1.0 H (0-0.2) mg/dl AST 67 H (13-39) U/L Alkaline Phosphatase 109 H (34-104) U/L Albumin 2.6 L (3.4-5.0) gm/dl Albumin/Globulin Ratio (0.9-2) 06/30/24 Range/Units 11:19 RBC (4.70-6.10) M/uL Hgb (14.0-18.0) g/dl Hct (42.0-52.0) % MCV (80.0-100.0) fL MCH (25.0-34.0) pg MCHC (32.0-36.0) g/dL RDW Std Deviation (36.4-46.3) fL RDW Coeff of Polo (11.5-14.5) % Plt Count (130-400) K/uL Lymph # (Auto) (1.20-3.40) K/uL [place] # (Auto) (0.11-0.59) K/uL PT (9.0-12.0) Seconds INR (0.9-1.1) Sodium (136-145) mmol/L Potassium (3.5-5.1) mmol/L Chloride (98-107) mmol/L BUN (6-23) mg/dl BUN/Creatinine Ratio (10-20) Glucose (70-99(Fasting)) mg/dl POC Glucose 170 H (70-99) mg/dl Osmolality (280-300) mOsm/kg Lactate (0.4-2.0) mmol/L Calcium (8.6-10.3) mg/dl Magnesium (1.7-2.4) mg/dl Total Bilirubin (0.2-1.0) mg/dl Direct Bilirubin (0-0.2) mg/dl AST (13-39) U/L Alkaline Phosphatase (34-104) U/L Albumin (3.4-5.0) gm/dl Albumin/Globulin Ratio (0.9-2)
[2024-06-30] MEDS: ONDANSETRON INJ 2 MG/ML 2 ML VIAL IV PRN (12:42)
--- NOTE | 2024-06-30 12:46 | Nephrology Consultation ---
Date of Consultation June 30, 2024 Assessment & Plan (1) Acute hyponatremia: His hyponatremia during last admissions had not responded to the conventional therapies, and continue to stay between 120-122, he had however stopped taking urea because of vomiting.He has been compliant with his home medications taking torsemide 40 mg twice daily with 1 g salt daily, not sure about the fluid restriction. - looking at his low blood pressure and episodes of dizziness he may have a prerenal element, agree with slow fluids at 50 mL an hour over the next 24 hours. - repeat urine osmolality urine sodium more and plasma osmolality. - target would be 127 millimoles until 7:00 p.m. today. he has agreed to be restarted on urea 30 g twice daily( but wants antiemetic before), also with 40 mg torsemide once today - if there is no improvement to his sodium, would give 100 mL of 3% saline tomorrow, with 40 mg IV Lasix, as he does not have ascites - rotational consult for high-protein diet (2) Dizziness: likely related to hypotension, improved as blood pressure improves History of Present Illness Reason for Consultation: 58-year-old, who was recently admitted in the hospital for acute hyponatremia and discharged on June 28. He again presented to the ER with complaints of dizziness since discharge and was found to have systolic blood pressure in 50s, patient was given a L of normal saline and his blood pressure improved. ER labs were significant for a lactic acid of 3.6 which improved to 1.9 of the fluid bolus, UA was essentially normal with a negative respiratory re BioFire. no acute process on chest x-ray and CT abdomen pelvis. He was empirically started on vancomycin and Zosyn. diuretics were withheld and he was continued on gentle IV rehydration. His sodium on discharge was 122( on previous admission), which was again 121.He has been taking the diuretic torsemide 40 mg twice daily with 1 g salt twice daily as advised since discharge Asymptomatic on exam when reviewed in a.m. 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, diverticulosis of colon, BPH, thrombocytopenia, history of hepatocellular carcinoma Attending Physician: Suzie Brooks MD Allergies Allergy/AdvReac Type Severity Reaction Status Date / Time aspirin AdvReac Intermediate NOSE Verified 06/29/24 20:54 BLEEDS--IF TAKES REGULARLY salicylates AdvReac Intermediate NOSE BLEEDS Verified 06/29/24 20:54 Home Medications Medication Instructions Recorded Confirmed Type allopurinol 300 mg tablet 300 mg PO QAM 06/03/19 06/29/24 History metformin 500 mg tablet 500 mg PO BIDM 06/03/19 06/29/24 History multivitamin 1 tab PO QAM 06/03/19 06/29/24 History atorvastatin 20 mg tablet 20 mg PO QAM 04/21/21 06/29/24 History ascorbic acid (vitamin C) 1,000 mg 1 g PO QAM 08/27/23 06/29/24 History tablet (Vitamin C) tamsulosin 0.4 mg capsule 0.4 mg PO DAILY 10/04/23 06/29/24 History rifaximin 550 mg tablet (Xifaxan) 550 mg PO BID 01/02/24 06/29/24 History omeprazole 20 mg capsule,delayed 20 mg PO DAILYBB 02/27/24 06/29/24 History release lactulose 20 gram/30 mL oral 45 g (67.5 mL) PO TID Cirrhosis 30 02/29/24 06/29/24 Rx solution days #3,000 mL mupirocin 2 % topical ointment 1 applic EXT TID PRN Wound Care 06/21/24 06/29/24 History potassium chloride 10 mEq 20 meq (2 x 10 mEq) PO BID 30 days 06/28/24 06/29/24 Rx tablet,extended release(part/cryst) #120 tabs sodium chloride 1,000 mg soluble 1,000 mg PO BID 30 days #60 tabs 06/28/24 06/29/24 Rx tablet torsemide 20 mg tablet 40 mg (2 x 20 mg) PO BID 30 days 06/28/24 06/29/24 Rx #120 tabs Lactobacillus acidophilus 10 10,000 mmu cells PO TID 06/29/24 06/29/24 History billion cell capsule (Probiotic) insulin glargine 100 unit/mL (3 10 unit subcut DAILY 06/29/24 06/29/24 History mL) subcutaneous pen (Lantus Solostar U-100 Insulin) midodrine 2.5 mg tablet 2.5 mg PO TID 06/29/24 06/29/24 History Patient History Medical History Pulmonary hypertension Diabetes mellitus NAFLD (nonalcoholic fatty liver disease) Chronic hyponatremia Dizziness r/t the cirrhosis - using a cane at this time. "if i get up to fast". S/P abdominal paracentesis Fracture of rib of right side 2013 Anaplasmosis 2019 Acute hepatic encephalopathy Cardiac murmur HX Hypertension Right rib fracture hx ~. Surgical History History of esophagogastroduodenoscopy (EGD) History of colonoscopy Family History Mother History of colonoscopy Brother Family history of diabetes mellitus Brother Family history of diabetes mellitus Grandmother (Paternal) Family history of diabetes mellitus Other No family history of adverse response to anesthesia Social History Smoking Status: Never smoker Tobacco Type: Smokeless Tobacco (Dip or Chew) Second Hand Exposure: No; Do You Dip or Chew Tobacco: Yes; Hx Alcohol Use: No Hx Substance Use: No Preferred Language: Nepali Communication Ability: Effective Quality Internship Required: No Beliefs That Will Affect Care: None marital status: Single Current Living Situation: Family Current Living Situation Comment: With brother and mother Feels Safe at Home: Yes Safety Concerns: Feels Safe At This Time Assistive Devices: Cane, Walker and Wheelchair Review of Systems 2 Review of Systems: All systems reviewed & are unremarkable except as noted in HPI & below Physical Exam 2 Physical Exam: Constitutional: no acute distress CV: First and second heart sounds Chest: normal respiratory effort at rest. Abdomen: soft, bowel sounds normal Extremities: No edema Neuro: alert, oriented to person, place, and time Results & Data Vital Signs (Past 12 Hours) Vital Signs Temp Pulse Pulse Resp BP BP Pulse Ox 06/30/24 10:47 36.4 C L 90 20 101/62 100 06/30/24 07:00 36.4 C L 93 H 18 98/61 L 100 06/30/24 05:36 91 H 06/30/24 03:30 36.4 C L 97 H 16 106/69 99 06/30/24 02:34 36.6 C 95 H 16 105/62 100 06/30/24 02:26 99 H 06/30/24 01:50 90 16 109/68 97 06/30/24 01:38 35.4 C L O2 Del Method 06/30/24 10:47 Room Air 06/30/24 07:00 Room Air 06/30/24 05:36 06/30/24 03:30 Room Air 06/30/24 02:34 Room Air 06/30/24 02:26 06/30/24 01:50 Room Air 06/30/24 01:38 Laboratory Results 06/30/24 05:30 06/30/24 10:50
[2024-06-30] MEDS ORDERED: POTASSIUM CHLORIDE CRTAB 20 MEQ TABCR PO STA (14:40)
[2024-06-30] MEDS: VANCOMYCIN HCL 1,500 MG in SODIUM CHLORIDE 0.9% 500 ML IV SCH (15:21)
[2024-06-30] MEDS: POTASSIUM CHLORIDE CRTAB 20 MEQ TABCR PO STA (17:06)
[2024-06-30 18:01] LABS: BUN Creatinine Ratio 24.2 (10-20); Creatinine Clr Calc Pharmacy 81.3 ml/min; Est GFR (African American) 73.3 ml/min; Est GFR (Non-African American) 63.2 ml/min; Potassium 3.8 mmol/L (3.5-5.1)
[2024-06-30 23:01] LABS: Calcium 7.5 mg/dl (8.6-10.3); Creatinine Clr Calc Pharmacy 82.7 ml/min; Est GFR (African American) 74.7 ml/min; Est GFR (Non-African American) 64.5 ml/min; Potassium 3.7 mmol/L (3.5-5.1)
[2024-07-01 06:21] LABS: Hematocrit (blood only) 27.2 % (42.0-52.0); Hemoglobin 9.9 g/dl (14.0-18.0); Mean Corpuscular Hemoglobin 36.9 pg (25.0-34.0); Mean Corpuscular Hgb Conc 36.4 g/dL (32.0-36.0); Mean Corpuscular Volume 101.5 fL (80.0-100.0); Platelet Count 62 K/uL (130-400); RDW Coefficient of Variation 14.6 % (11.5-14.5); RDW Standard Deviation 54.6 fL (36.4-46.3); Red Blood Count 2.68 M/uL (4.70-6.10); White Blood Count 5.51 K/ul (4.8-10.8)
[2024-07-01 06:38] LABS: BUN Creatinine Ratio 28.8 (10-20); Calcium 7.6 mg/dl (8.6-10.3); Est GFR (African American) 90.7 ml/min; Est GFR (Non-African American) 78.2 ml/min; Magnesium 1.9 mg/dl (1.7-2.4); Phosphorus 3.5 mg/dl (2.5-4.9); Potassium 3.7 mmol/L (3.5-5.1)
--- NOTE | 2024-07-01 10:16 | Hospitalist Progress Note ---
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 Whenever he stands up and tries to ambulate he was feeling very dizzy and felt like going to pass out. Today while ambulating to bathroom had to hold onto the wall and lowered himself to the ground. He was living at his brother's house. He was using his brothers walker. He called EMS and per EMS his systolic blood pr essure was in 50s. He was given 1 L fluid and blood pressure improved. Patient recently hospitalized and discharged on 06/28 Hypotension likely related to medication changes Though there was concern for possible sepsis on presentation due to hypotension, elevated lactate, hypothermia; I have low suspicion for infection based on history and available findings Elevated lactate is not new and may be related to chronic liver disease and also on metformin Respiratory bio fire negative Chest x-ray is okay UA not suggestive of infection No acute process on CT abdomen pelvis Empirical antibiotics started for possible sepsis stopped as Sepsis is unlikely Midodrine started during last admission increased to 5mg TID Has orthostatic hypotension Monitor orthostatic vitals Reviewed TTE from 10/2023 on [facility]. mild conc LVH, EF 60-64%, Grade I diastolic dysfunction, AV is moderate calcified, mod aortic valve stenosis, PASP 30 Chronic Hyponatremia Sodium 122 today Was 122 at discharge Discussed with Digital Strategy Director Dr Dawn today He recommends giving 1L NSS at 250cc/h, IV lasix 40mg x 1 then 20mg TID, Recheck BMP at 4pm Continue Urea 15 BID, sodium tab 1g BID Wells liver cirrhosis Mild elevation of LFTs Continue home Xifaxan and lactulose Spironolactone was stopped last admission and lasix was changed to torsemide at the time Hepatocellular carcinoma status post ablation on 08/02/2023 CT scan today showing 1.4 cm hypodense segment 5 hepatic lesion needs follow-up. Nonemergent liver protocol MRI is recommended to exclude a hepatocellular carcinoma Moderate aortic stenosis Pulm hypertension Hyperlipidemia On statin Diabetes Continue home Lantus Hold metformin Sliding scale Will monitor History of gout on allopurinol Thrombocytopenia From cirrhosis Monitor BPH On Flomax DVT prophylaxis SCDs Full code. I spent a total of 50 minutes coordinating, documenting and providing care for this patient excluding time spent in performance of separately billed services Admission and Anticipated Discharge Date Admission Date: June 30, 2024 Subjective Patient seen and examined Reports orthostatic dizziness Denied any fever, chills, nausea, vomiting, abd pain, diarrhea Denied dysuria, freq, urgency, hematuria Denied any other complaints on ROS Physical Exam Constitutional: + well hydrated; no acute distress Eyes: PERRL, conjunctivae normal, anicteric sclerae ENMT: external ear and nose normal, oropharynx normal Respiratory: normal respiratory effort, lungs clear to auscultation Cardiovascular: Rate/Rhythm: regular rate and regular rhythm Gastrointestinal (Abdomen): Soft, protuberant, nontender, normal bowel sounds Musculoskeletal: No pedal edema Neurologic: PERRL, EOMI, accommodation nl, no face palsy, no dysarthria Psychiatric: A+Ox3, euthymic affect Results & Data Results & Data Vital Signs (Past 12 Hours) Vital Signs Temp Pulse Pulse Resp BP Pulse Ox Pulse Ox 07/01/24 07:00 36.5 C 74 20 95/53 L 99 07/01/24 03:25 36.5 C 85 18 114/74 100 07/01/24 02:36 100 07/01/24 00:00 93 H 06/30/24 23:40 36.6 C 93 H 18 107/72 100 O2 Del Method O2 Del Method 07/01/24 07:00 Room Air 07/01/24 03:25 Room Air 07/01/24 02:36 Room Air 07/01/24 00:00 06/30/24 23:40 Room Air Laboratory Results Abnormal lab results 06/30/24 06/30/24 06/30/24 Range/Units 16:30 17:18 20:08 RBC (4.70-6.10) M/uL Hgb (14.0-18.0) g/dl Hct (42.0-52.0) % MCV (80.0-100.0) fL MCH (25.0-34.0) pg MCHC (32.0-36.0) g/dL RDW Std Deviation (36.4-46.3) fL RDW Coeff of Polo (11.5-14.5) % Plt Count (130-400) K/uL Sodium 121 L (136-145) mmol/L Chloride 89 L (98-107) mmol/L BUN 30 H (6-23) mg/dl BUN/Creatinine Ratio 24.2 H (10-20) Glucose 160 H (70-99(Fasting)) mg/dl POC Glucose 164 H 235 H (70-99) mg/dl Calcium 8.0 L (8.6-10.3) mg/dl 06/30/24 07/01/24 07/01/24 Range/Units 22:31 05:50 07:09 RBC 2.68 L (4.70-6.10) M/uL Hgb 9.9 L (14.0-18.0) g/dl Hct 27.2 L (42.0-52.0) % MCV 101.5 H (80.0-100.0) fL MCH 36.9 H (25.0-34.0) pg MCHC 36.4 H (32.0-36.0) g/dL RDW Std Deviation 54.6 H (36.4-46.3) fL RDW Coeff of Polo 14.6 H (11.5-14.5) % Plt Count 62 L (130-400) K/uL Sodium 122 L 122 L (136-145) mmol/L Chloride 91 L 91 L (98-107) mmol/L BUN 39 H 30 H (6-23) mg/dl BUN/Creatinine Ratio 32.0 H 28.8 H (10-20) Glucose 251 H 208 H (70-99(Fasting)) mg/dl POC Glucose 209 H (70-99) mg/dl Calcium 7.5 L 7.6 L (8.6-10.3) mg/dl 07/01/24 07/01/24 Range/Units 10:36 11:19 RBC (4.70-6.10) M/uL Hgb (14.0-18.0) g/dl Hct (42.0-52.0) % MCV (80.0-100.0) fL MCH (25.0-34.0) pg MCHC (32.0-36.0) g/dL RDW Std Deviation (36.4-46.3) fL RDW Coeff of Polo (11.5-14.5) % Plt Count (130-400) K/uL Sodium 121 L (136-145) mmol/L Chloride 90 L (98-107) mmol/L BUN 41 H (6-23) mg/dl BUN/Creatinine Ratio 36.9 H (10-20) Glucose 203 H (70-99(Fasting)) mg/dl POC Glucose 203 H (70-99) mg/dl Calcium 8.0 L (8.6-10.3) mg/dl
[2024-07-01 11:15] LABS: BUN Creatinine Ratio 36.9 (10-20); Creatinine Clr Calc Pharmacy 89.6 ml/min; Est GFR (African American) 83.8 ml/min; Est GFR (Non-African American) 72.3 ml/min; Potassium 3.5 mmol/L (3.5-5.1)
[2024-07-01] MEDS: FUROSEMIDE 40 MG/4 ML VIAL IV ONE (11:29)
[2024-07-01] MEDS: SODIUM CHLORIDE 0.9% 1,000 ML IV SCH (11:30)
--- NOTE | 2024-07-01 14:05 | Nephrology Progress Note ---
Date of Service July 01, 2024 Assessment & Plan (1) Acute hyponatremia: Plan: His hyponatremia during last admissions had not responded to the conventional therapies, and continue to stay between 120-122, he had however stopped taking urea because of vomiting.He has been compliant with his home medications taking torsemide 40 mg twice daily with 1 g salt daily, not sure about the fluid restriction. - his sodium has not budged again, urine studies leaning towards volume depleted state. - will give him 1 L of normal saline over 4 hours followed by 40 mg IV Lasix, repeat his sodium around 4pm. start him on 20 mg IV Lasix starting 5:00 p.m. today, continue on urea and salt tablets - if there is no improvement to his sodium( which I suspect would be the case given his high urine osmolality),I would give 100 mL of 3% saline tomorrow, Lasix (2) Dizziness: Plan: likely related to hypotension, improved as blood pressure improves Admission and Anticipated Discharge Date Admission Date: June 30, 2024 Subjective Patient seen and examined Still c/o orthostatic dizziness Denied any fever, chills, nausea, vomiting, abd pain, diarrhea Review of Systems 2 Review of Systems: All systems reviewed & are unremarkable except as noted in HPI & below c/o dizziness, but better Physical Exam 2 Physical Exam: Constitutional: no acute distress CV: First and second heart sounds Chest: normal respiratory effort at rest. Abdomen: soft, bowel sounds normal Extremities: No edema Neuro: alert, oriented to person, place, and time Results & Data Vital Signs (Past 12 Hours) Vital Signs Temp Pulse Resp BP Pulse Ox Pulse Ox O2 Del Method 07/01/24 11:40 36.6 C 91 H 16 124/71 100 Room Air 07/01/24 07:00 36.5 C 74 20 95/53 L 99 Room Air 07/01/24 03:25 36.5 C 85 18 114/74 100 Room Air 07/01/24 02:36 100 O2 Del Method 07/01/24 11:40 07/01/24 07:00 07/01/24 03:25 07/01/24 02:36 Room Air Laboratory Results 07/01/24 05:50 07/01/24 10:36
[2024-07-01] MEDS: FUROSEMIDE INJ 20 MG/2 ML VIAL IV SCH (16:24)
[2024-07-01 18:06] LABS: BUN Creatinine Ratio 24.2 (10-20); Creatinine Clr Calc Pharmacy 80.2 ml/min; Est GFR (African American) 73.3 ml/min; Est GFR (Non-African American) 63.2 ml/min; Potassium 3.3 mmol/L (3.5-5.1)
[2024-07-02 07:24] LABS: Hematocrit (blood only) 24.8 % (42.0-52.0); Hemoglobin 9.2 g/dl (14.0-18.0); Mean Corpuscular Hemoglobin 37.2 pg (25.0-34.0); Mean Corpuscular Hgb Conc 37.1 g/dL (32.0-36.0); Mean Corpuscular Volume 100.4 fL (80.0-100.0); Mean Platelet Volume 11.1 fL (9.4-12.4); Platelet Count 56 K/uL (130-400); RDW Coefficient of Variation 14.5 % (11.5-14.5); RDW Standard Deviation 53.3 fL (36.4-46.3); Red Blood Count 2.47 M/uL (4.70-6.10)
[2024-07-02 07:43] LABS: BUN Creatinine Ratio 29.6 (10-20); Calcium 7.1 mg/dl (8.6-10.3); Creatinine Clr Calc Pharmacy 104.7 ml/min; Est GFR (African American) 97.4 ml/min; Est GFR (Non-African American) 84.1 ml/min; Magnesium 1.8 mg/dl (1.7-2.4); Phosphorus 2.2 mg/dl (2.5-4.9); Potassium 3.2 mmol/L (3.5-5.1)
--- NOTE | 2024-07-02 10:00 | Hospitalist Progress Note ---
Date of Service July 02, 2024 Assessment & Plan (1) Orthostatic hypotension: (2) Hyponatremia: Plan 58-year-old male with past medical history significant for type 2 diabetes, hyperlipidemia, chronic idiopathic gout, history of hepatic encephalopathy, hypertension, moderate aortic stenosis, liver cirrhosis secondary to [place], diverticulosis of colon, BPH, thrombocytopenia, history of hepatocellular carcinoma who was recently in the hospital for acute hyponatremia and discharged on June 28, 2024 comes back because of feeling very dizzy at home. Whenever he stands up and tries to ambulate he was feeling very dizzy and felt like going to pass out. Today while ambulating to bathroom had to hold onto the wall and lowered himself to the ground. He was living at his brother's house. He was using his brothers walker. He called EMS and per EMS his systolic blood pr essure was in 50s. He was given 1 L fluid and blood pressure improved. Patient recently hospitalized and discharged on 06/28 Hypotension likely related to medication changes Though there was concern for possible sepsis on presentation due to hypotension, elevated lactate, hypothermia; I have low suspicion for infection based on history and available findings Elevated lactate is not new and may be related to chronic liver disease and also on metformin Respiratory bio fire negative Chest x-ray is okay UA not suggestive of infection No acute process on CT abdomen pelvis Empirical antibiotics started for possible sepsis stopped as Sepsis is unlikely Midodrine started during last admission increased to 5mg TID Has orthostatic hypotension Monitor orthostatic vitals Reviewed TTE from 10/2023 on [facility]. 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 Nonemergent liver protocol MRI is recommended to exclude a hepatocellular carcinoma Moderate aortic stenosis Pulm hypertension Hyperlipidemia On statin Diabetes Continue home Lantus Hold metformin Sliding scale Will monitor History of gout on allopurinol Thrombocytopenia From cirrhosis Monitor BPH On Flomax DVT prophylaxis SCDs Full code. I spent a total of 50 minutes coordinating, documenting and providing care for this patient excluding time spent in performance of separately billed services Admission and Anticipated Discharge Date Admission Date: June 30, 2024 Subjective Patient seen and examined Reports nausea and abd discomfort today after eating breakfast Denied any fever, chills, constipation Denied dysuria, freq, urgency, hematuria Still has orthostatic dizziness Physical Exam Constitutional: + well hydrated; no acute distress Eyes: PERRL, conjunctivae normal, anicteric sclerae ENMT: external ear and nose normal, oropharynx normal Respiratory: normal respiratory effort, lungs clear to auscultation Cardiovascular: Rate/Rhythm: regular rate and regular rhythm Gastrointestinal (Abdomen): Soft, protuberant, nontender, normal bowel sounds Musculoskeletal: No pedal edema Neurologic: PERRL, EOMI, accommodation nl, no face palsy, no dysarthria Psychiatric: A+Ox3, euthymic affect Results & Data Results & Data Vital Signs (Past 12 Hours) Vital Signs Temp Pulse Resp BP Pulse Ox Pulse Ox O2 Del Method 07/02/24 08:08 36.4 C L 101 H 17 104/65 100 Room Air 07/02/24 02:00 99 07/01/24 23:51 36.4 C L 90 18 107/74 99 Room Air O2 Del Method 07/02/24 08:08 07/02/24 02:00 Room Air 07/01/24 23:51 Laboratory Results Abnormal lab results 07/01/24 07/01/24 07/01/24 Range/Units 10:36 11:19 16:00 RBC (4.70-6.10) M/uL Hgb (14.0-18.0) g/dl Hct (42.0-52.0) % MCV (80.0-100.0) fL MCH (25.0-34.0) pg MCHC (32.0-36.0) g/dL RDW Std Deviation (36.4-46.3) fL Plt Count (130-400) K/uL Sodium 121 L (136-145) mmol/L Potassium (3.5-5.1) mmol/L Chloride 90 L (98-107) mmol/L BUN 41 H (6-23) mg/dl BUN/Creatinine Ratio 36.9 H (10-20) Glucose 203 H (70-99(Fasting)) mg/dl POC Glucose 203 H 231 H (70-99) mg/dl Calcium 8.0 L (8.6-10.3) mg/dl Phosphorus (2.5-4.9) mg/dl 07/01/24 07/01/24 07/02/24 Range/Units 17:12 20:19 06:29 RBC 2.47 L (4.70-6.10) M/uL Hgb 9.2 L (14.0-18.0) g/dl Hct 24.8 L (42.0-52.0) % MCV 100.4 H (80.0-100.0) fL MCH 37.2 H (25.0-34.0) pg MCHC 37.1 H (32.0-36.0) g/dL RDW Std Deviation 53.3 H (36.4-46.3) fL Plt Count 56 L (130-400) K/uL Sodium 125 L 125 L (136-145) mmol/L Potassium 3.3 L 3.2 L (3.5-5.1) mmol/L Chloride 96 L 96 L (98-107) mmol/L BUN 30 H 29 H (6-23) mg/dl BUN/Creatinine Ratio 24.2 H 29.6 H (10-20) Glucose 191 H 177 H (70-99(Fasting)) mg/dl POC Glucose 144 H (70-99) mg/dl Calcium 7.0 L 7.1 L (8.6-10.3) mg/dl Phosphorus 2.2 L D (2.5-4.9) mg/dl 07/02/24 Range/Units 07:12 RBC (4.70-6.10) M/uL Hgb (14.0-18.0) g/dl Hct (42.0-52.0) % MCV (80.0-100.0) fL MCH (25.0-34.0) pg MCHC (32.0-36.0) g/dL RDW Std Deviation (36.4-46.3) fL Plt Count (130-400) K/uL Sodium (136-145) mmol/L Potassium (3.5-5.1) mmol/L Chloride (98-107) mmol/L BUN (6-23) mg/dl BUN/Creatinine Ratio (10-20) Glucose (70-99(Fasting)) mg/dl POC Glucose 183 H (70-99) mg/dl Calcium (8.6-10.3) mg/dl Phosphorus (2.5-4.9) mg/dl
--- NOTE | 2024-07-02 10:37 | Nephrology Progress Note ---
Date of Service July 02, 2024 Assessment & Plan Admission and Anticipated Discharge Date Admission Date: June 30, 2024 Subjective Assessment & Plan (1) Acute hyponatremia: Plan: His hyponatremia during last admissions had not responded to the conventional therapies, and continue to stay between 120-122, he had however stopped taking urea because of vomiting.He has been compliant with his home medications taking torsemide 40 mg twice daily with 1 g salt daily. As per RN--he has already drank his daily limit of 1500 ml before breakfast !!! so obviously he was not following fluid limit at home and doubt we are achieving that even in hospital. Spoke with RN again and suggested not to give the whole day pitcher but rather give small cups spread out over the whole day. again said he wont take the urea. na has not changed today 125 again' K is low. for today change NS to 80 ml/hr rase lasix to 40 iv q8h Continue Salt tab 1 gm bid. Most important he needs to limit fluid to 1500 ml per day raise kcl to 40 tid. Rx for nausea (2) Dizziness: Plan: likely related to hypotension, improved as blood pressure improves Subjective Patient seen and examined c/o nausea and upset stomach. Denied any fever, chills, nausea, vomiting, abd pain, diarrhea Review of Systems Review of Systems: All systems reviewed & are unremarkable except as noted in HPI & below c/o dizziness, but better Physical Exam Physical Exam: Constitutional: no acute distress CV: First and second heart sounds Chest: normal respiratory effort at rest. Abdomen: soft, bowel sounds normal Extremities: No edema Neuro: alert, oriented to person, place, and time Results & Data Vital Signs (Past 12 Hours) Vital Signs Temp Pulse Resp BP Pulse Ox Pulse Ox O2 Del Method 07/02/24 08:08 36.4 C L 101 H 17 104/65 100 Room Air 07/02/24 02:00 99 07/01/24 23:51 36.4 C L 90 18 107/74 99 Room Air O2 Del Method 07/02/24 08:08 07/02/24 02:00 Room Air 07/01/24 23:51
[2024-07-02] MEDS: POT PHOSPHATE MONOBASIC W/ SOD TAB PO SCH (12:14)
[2024-07-02] MEDS: FUROSEMIDE INJ 20 MG/2 ML VIAL IV SCH (12:17)
[2024-07-02] MEDS: POTASSIUM CHLORIDE CRTAB 20 MEQ TABCR PO STA ×2 (13:00→14:14)
[2024-07-02 13:01] LABS: BUN Creatinine Ratio 25.3 (10-20); Calcium 7.5 mg/dl (8.6-10.3); Creatinine Clr Calc Pharmacy 103.6 ml/min; Est GFR (African American) 96.2 ml/min; Potassium 3.3 mmol/L (3.5-5.1)
[2024-07-02 18:57] LABS: BUN Creatinine Ratio 22.2 (10-20); Calcium 7.5 mg/dl (8.6-10.3); Creatinine Clr Calc Pharmacy 103.6 ml/min; Est GFR (African American) 96.2 ml/min; Potassium 4.3 mmol/L (3.5-5.1)
[2024-07-02] MEDS: POTASSIUM CHLORIDE CRTAB 20 MEQ TABCR PO SCH (20:07)
[2024-07-02] MEDS ORDERED: POTASSIUM CHLORIDE CRTAB 20 MEQ TABCR PO SCH (21:00)
[2024-07-03 01:26] LABS: BUN Creatinine Ratio 29.6 (10-20); Calcium 7.6 mg/dl (8.6-10.3); Creatinine Clr Calc Pharmacy 104.7 ml/min; Est GFR (African American) 97.4 ml/min; Est GFR (Non-African American) 84.1 ml/min; Potassium 3.3 mmol/L (3.5-5.1)
[2024-07-03 07:27] LABS: Calcium 7.3 mg/dl (8.6-10.3); Magnesium 1.8 mg/dl (1.7-2.4); Potassium 3.8 mmol/L (3.5-5.1)
[2024-07-03 07:33] LABS: BUN Creatinine Ratio 27.3 (10-20); Creatinine Clr Calc Pharmacy 116.7 ml/min; Phosphorus 2.9 mg/dl (2.5-4.9)
--- NOTE | 2024-07-03 10:04 | Nephrology Progress Note ---
Date of Service July 03, 2024 Assessment & Plan Admission and Anticipated Discharge Date Admission Date: June 30, 2024 Subjective Assessment & Plan (1) Acute hyponatremia: Plan: His hyponatremia during last admissions had not responded to the conventional therapies, and continue to stay between 120-122, he had however stopped taking urea because of vomiting.He has been compliant with his home medications taking torsemide 40 mg twice daily with 1 g salt daily. again said he wont take the urea. na slightly higher to 127. Doubt we can get it higher than 130 but will continue same management as yesterday for now. K is normal with higher dose of kcl for today Continue NS 80 ml/hr Continue lasix 40 iv q8h Continue Salt tab 1 gm bid. Most important he needs to limit fluid to 1500 ml per day--this has been a challenge even as inpt kcl to 40 tid. Rx for nausea (2) Dizziness: Plan: likely related to hypotension, improved as blood pressure improves. Continue Midodrine Subjective Patient seen and examined Denied any fever, chills, nausea, vomiting, abd pain, diarrhea Review of Systems Review of Systems: All systems reviewed & are unremarkable except as noted in HPI & below c/o dizziness, but better Physical Exam Physical Exam: Constitutional: no acute distress CV: First and second heart sounds Chest: normal respiratory effort at rest. Abdomen: soft, bowel sounds normal Extremities: No edema Neuro: alert, oriented to person, place, and time Results & Data Vital Signs (Past 12 Hours) Vital Signs Temp Pulse Pulse Resp BP Pulse Ox Pulse Ox 07/03/24 09:40 70 07/03/24 07:30 36.5 C 78 18 90/47 L 97 07/03/24 02:47 99 H 18 105/72 100 07/03/24 02:44 98 H 18 106/68 100 07/03/24 02:32 82 16 111/73 98 07/03/24 02:00 100 07/02/24 22:04 36.8 C 96 H 20 110/74 98 O2 Del Method O2 Del Method 07/03/24 09:40 07/03/24 07:30 Room Air 07/03/24 02:47 Room Air 07/03/24 02:44 Room Air 07/03/24 02:32 Room Air 07/03/24 02:00 Room Air 07/02/24 22:04 Room Air
--- NOTE | 2024-07-03 10:29 | Hospitalist Progress Note ---
Date of Service July 03, 2024 Assessment & Plan (1) Orthostatic hypotension: (2) Hyponatremia: Plan Pt is a 58-year-old male with past medical history significant for type 2 diabetes, hyperlipidemia, chronic idiopathic gout, history of hepatic encephalopathy, hypertension, moderate aortic stenosis, liver cirrhosis secondary to Gonzales, diverticulosis of colon, BPH, thrombocytopenia, history of hepatocellular carcinoma who was recently in the hospital for acute hyponatremia and discharged on June 28, 2024 who comes back because of feeling very dizzy at home. Whenever he stands up and tries to ambulate he was feeling very dizzy and felt like going to pass out. Today while ambulating to bathroom had to hold onto the wall and lowered himself to the ground. He was living at his brother's house. He was using his brothers walker. He called EMS and per EMS his systolic blood pressure was in 50s. He was given 1L fluid and blood pressure improved. Orthostatic Hypotension Possible Sepsis Patient recently hospitalized and discharged on 06/28 Hypotension likely related to medication changes Concern for possible sepsis on presentation due to hypotension, elevated lactate, hypothermia Respiratory bio fire negative Chest x-ray unremarkable UA not suggestive of infection No acute process on CT abdomen pelvis Empiric antibiotics were given for possible sepsis, has since been discontinued Midodrine started during last admission increased to 5mg TID Has orthostatic hypotension Monitor orthostatic vitals Reviewed TTE from 10/2023 on [facility]. mild conc LVH, EF 60-64%, Grade I diastolic dysfunction, AV is moderate calcified, mod aortic valve stenosis, PASP 30 Continue to monitor Chronic Hyponatremia Sodium improved to 127 this AM Currently on NSS , IV lasix TID Continue Urea 15 BID, sodium tab 1g BID nephrology consulted, appreciate recs Hypokalemia Hypophosphatemia Replete as needed Also on KCl 20mEq BID per nephrology GONZALES liver cirrhosis Mild elevation of LFTs Continue home Xifaxan and lactulose Spironolactone was stopped last admission and lasix was changed to torsemide at the time Currently on Lasix 40mg TID per nephrology Thrombocytopenia Likely in setting of cirrhosis Continue to monitor Hepatocellular carcinoma status post ablation on 08/02/2023 CT scan on admission showing 1.4 cm hypodense segment 5 hepatic lesion needs PCP [id number] liver protocol MRI is recommended to exclude a hepatocellular carcinoma Moderate aortic stenosis Pulm hypertension Stable Hyperlipidemia On statin Diabetes Continue home Lantus Hold metformin Sliding scale Will monitor History of gout on allopurinol BPH On Flomax DVT prophylaxis: SCDs in setting of thrombocytopenia Diet: Low sodium, DMII, 1500ml FR Dispo: PT/OT ordered for further recs Admission and Anticipated Discharge Date Admission Date: June 30, 2024 Subjective pt was seen laying in bed, resting comfortably. 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 States that today is the first day he does not feel dizzy. Sodium up to 127 today. Denies other concerns. Review of Systems Review of Systems: All systems reviewed & are unremarkable except as noted in Subjective Physical Exam Physical Exam: General: Alert, oriented. Neuro: No gross deficits while laying in bed HEENT: NC/AT CV: RRR Resp: Breath sounds clear bilaterally, no increased effort of breathing. Abdomen: Soft, nontender Extremities: No edema in lower extremities bilaterally. Results & Data Results & Data Vital Signs (Past 12 Hours) Vital Signs Temp Pulse Pulse Resp BP Pulse Ox Pulse Ox 07/03/24 09:40 70 07/03/24 07:30 36.5 C 78 18 90/47 L 97 07/03/24 02:47 99 H 18 105/72 100 07/03/24 02:44 98 H 18 106/68 100 07/03/24 02:32 82 16 111/73 98 07/03/24 02:00 100 O2 Del Method O2 Del Method 07/03/24 09:40 07/03/24 07:30 Room Air 07/03/24 02:47 Room Air 07/03/24 02:44 Room Air 07/03/24 02:32 Room Air 07/03/24 02:00 Room Air
[2024-07-03 12:33] LABS: BUN Creatinine Ratio 34.7 (10-20); Calcium 7.6 mg/dl (8.6-10.3); Creatinine Clr Calc Pharmacy 108.1 ml/min; Est GFR (African American) 101.1 ml/min; Est GFR (Non-African American) 87.3 ml/min; Potassium 4.1 mmol/L (3.5-5.1)
[2024-07-03 19:32] LABS: BUN Creatinine Ratio 24.5 (10-20); Calcium 7.7 mg/dl (8.6-10.3); Creatinine Clr Calc Pharmacy 96.9 ml/min; Est GFR (African American) 88.6 ml/min; Est GFR (Non-African American) 76.4 ml/min; Potassium 3.9 mmol/L (3.5-5.1)
[2024-07-04 05:48] LABS: Basophils # (auto) 0.09 K/uL (0.00-0.20); Basophils % (auto) 1.6 %; Eosinophils # (auto) 0.29 K/uL (0.00-0.50); Eosinophils % (auto) 5.2 %; Hematocrit (blood only) 25.3 % (42.0-52.0); Immature Granulocytes # (auto) 0.03 K/uL (0.01-0.20); Immature Granulocytes % (auto) 0.5 %; Lymphocytes # (auto) 0.72 K/uL (1.20-3.40); Lymphocytes % (auto) 12.8 %; Mean Corpuscular Hemoglobin 36.6 pg (25.0-34.0); Mean Corpuscular Hgb Conc 35.6 g/dL (32.0-36.0); Mean Corpuscular Volume 102.8 fL (80.0-100.0); Mean Platelet Volume 11.2 fL (9.4-12.4); Monocytes # (auto) 1.06 K/uL (0.11-0.59); Monocytes % (auto) 18.9 %; Neutrophils # (auto) 3.42 K/uL (1.40-6.50); Platelet Count 57 K/uL (130-400); RDW Standard Deviation 56.6 fL (36.4-46.3); Red Blood Count 2.46 M/uL (4.70-6.10); White Blood Count 5.61 K/ul (4.8-10.8)
[2024-07-04 06:05] LABS: Albumin Globulin Ratio 0.7 (0.9-2); Albumin Level 2.2 gm/dl (3.4-5.0); BUN Creatinine Ratio 29.5 (10-20); Bilirubin,Total 2.5 mg/dl (0.2-1.0); Calcium 7.8 mg/dl (8.6-10.3); Creatinine Clr Calc Pharmacy 108.5 ml/min; Est GFR (African American) 101.1 ml/min; Est GFR (Non-African American) 87.3 ml/min; Globulin 3.1 gm/dl (2.5-4.0); Magnesium 1.8 mg/dl (1.7-2.4); Phosphorus 2.5 mg/dl (2.5-4.9); Total Protein 5.3 gm/dl (6.0-8.3)
--- NOTE | 2024-07-04 10:57 | Nephrology Progress Note ---
Date of Service July 04, 2024 Assessment & Plan Admission and Anticipated Discharge Date Admission Date: June 30, 2024 Subjective Assessment & Plan (1) Acute hyponatremia: Plan: His hyponatremia during last admissions had not responded to the conventional therapies, and continue to stay between 120-122, he had however stopped taking urea because of vomiting.He has been compliant with his home medications taking torsemide 40 mg twice daily with 1 g salt daily. again said he wont take the urea. na slightly higher to 127. Doubt we can get it higher than 130 K is normal with higher dose of kcl for today Stop lasix iv and NS. Start torsemide 20 qAM Continue Salt tab 1 gm bid. Most important he needs to limit fluid to 1500 ml per day--this has been a challenge even as inpt and impossible as outpt. unless this is fixed nothing else matters kcl 20 bid. Urea 15 gm bid if he can tolerate. Rx for nausea Given Cirrhosis--125--130 might be the best we can achieve (2) Dizziness: Plan: likely related to hypotension, improved as blood pressure improves. Continue Midodrine Subjective Patient seen and examined Denied any fever, chills, nausea, vomiting, abd pain, diarrhea Review of Systems Review of Systems: All systems reviewed & are unremarkable except as noted in HPI & below c/o dizziness, but better Physical Exam Physical Exam: Constitutional: no acute distress CV: First and second heart sounds Chest: normal respiratory effort at rest. Abdomen: soft, bowel sounds normal Extremities: No edema Neuro: alert, oriented to person, place, and time Results & Data Vital Signs (Past 12 Hours) Vital Signs Temp Pulse Pulse Resp BP Pulse Ox O2 Del Method 07/04/24 07:29 36.4 C L 92 H 18 97/55 L 95 Room Air 07/04/24 07:27 85 07/04/24 03:10 36.8 C 82 18 99/61 L 96 Room Air
--- NOTE | 2024-07-04 11:39 | Hospitalist Progress Note ---
Date of Service July 04, 2024 Assessment & Plan (1) Orthostatic hypotension: (2) Hyponatremia: Plan Pt is a 58-year-old male with past medical history significant for type 2 diabetes, hyperlipidemia, chronic idiopathic gout, history of hepatic encephalopathy, hypertension, moderate aortic stenosis, liver cirrhosis secondary to Gonzales, diverticulosis of colon, BPH, thrombocytopenia, history of hepatocellular carcinoma who was recently in the hospital for acute hyponatremia and discharged on June 28, 2024 who comes back because of feeling very dizzy at home. Whenever he stands up and tries to ambulate he was feeling very dizzy and felt like going to pass out. Today while ambulating to bathroom had to hold onto the wall and lowered himself to the ground. He was living at his brother's house. He was using his brothers walker. He called EMS and per EMS his systolic blood pressure was in 50s. He was given 1L fluid and blood pressure improved. Orthostatic Hypotension Possible Sepsis Patient recently hospitalized and discharged on 06/28 Hypotension likely related to medication changes Concern for possible sepsis on presentation due to hypotension, elevated lactate, hypothermia Respiratory bio fire negative Chest x-ray unremarkable UA not suggestive of infection No acute process on CT abdomen pelvis Empiric antibiotics were given for possible sepsis, has since been discontinued Midodrine started during last admission increased to 5mg TID Has orthostatic hypotension Monitor orthostatic vitals Reviewed TTE from 10/2023 on [facility]. mild conc LVH, EF 60-64%, Grade I diastolic dysfunction, AV is moderate calcified, mod aortic valve stenosis, PASP 30 Continue to monitor Chronic Hyponatremia Sodium improved to 127 this AM Currently on NSS , IV lasix TID--->transitioned to po torsemide 20mg only, fluids discontinued Continue Urea 15 BID, sodium tab 1g BID nephrology consulted, appreciate recs Hypokalemia Hypophosphatemia Replete as needed Also on KCl 20mEq BID per nephrology GONZALES liver cirrhosis Mild elevation of LFTs Continue home Xifaxan and lactulose Spironolactone was stopped last admission and lasix was changed to torsemide at the time Currently on Lasix 40mg TID per nephrology Thrombocytopenia Likely in setting of cirrhosis Continue to monitor Hepatocellular carcinoma status post ablation on 08/02/2023 CT scan on admission showing 1.4 cm hypodense segment 5 hepatic lesion needs PCP [id number] liver protocol MRI is recommended to exclude a hepatocellular carcinoma Moderate aortic stenosis Pulm hypertension Stable Hyperlipidemia On statin Diabetes Continue home Lantus Hold metformin Sliding scale Will monitor History of gout on allopurinol BPH On Flomax DVT prophylaxis: SCDs in setting of thrombocytopenia Diet: Low sodium, DMII, 1500ml FR Dispo: PT/OT ordered for further recs Admission and Anticipated Discharge Date Admission Date: June 30, 2024 Subjective Pt was seen in the AM. States he refused to work with PT this AM. asking about his sodium. States he is feeling better, asking about discharge. Review of Systems Review of Systems: All systems reviewed & are unremarkable except as noted in Subjective Physical Exam Physical Exam: General: Alert, oriented. Neuro: No gross deficits while laying in bed HEENT: NC/AT CV: RRR Resp: Breath sounds clear bilaterally, no increased effort of breathing. Abdomen: Soft, nontender Extremities: No edema in lower extremities bilaterally. Results & Data Results & Data Vital Signs (Past 12 Hours) Vital Signs Temp Pulse Pulse Resp BP Pulse Ox O2 Del Method 07/04/24 11:37 36.6 C 80 18 99/62 L 96 Room Air 07/04/24 07:29 36.4 C L 92 H 18 97/55 L 95 Room Air 07/04/24 07:27 85 07/04/24 03:10 36.8 C 82 18 99/61 L 96 Room Air
[2024-07-04] MEDS: TORSEMIDE 20 MG TAB PO SCH (12:34)
[2024-07-04] MEDS: POTASSIUM CHLORIDE CRTAB 20 MEQ TABCR PO SCH (21:50)
[2024-07-05 06:12] LABS: Basophils # (auto) 0.11 K/uL (0.00-0.20); Basophils % (auto) 2.1 %; Eosinophils # (auto) 0.25 K/uL (0.00-0.50); Eosinophils % (auto) 4.7 %; Hematocrit (blood only) 25.1 % (42.0-52.0); Hemoglobin 9.1 g/dl (14.0-18.0); Immature Granulocytes # (auto) 0.02 K/uL (0.01-0.20); Immature Granulocytes % (auto) 0.4 %; Lymphocytes # (auto) 0.67 K/uL (1.20-3.40); Lymphocytes % (auto) 12.5 %; Mean Corpuscular Hgb Conc 36.3 g/dL (32.0-36.0); Mean Platelet Volume 10.8 fL (9.4-12.4); Monocytes # (auto) 0.95 K/uL (0.11-0.59); Monocytes % (auto) 17.8 %; Neutrophils # (auto) 3.34 K/uL (1.40-6.50); Neutrophils % (auto) 62.5 %; Platelet Count 61 K/uL (130-400); RDW Coefficient of Variation 14.6 % (11.5-14.5); RDW Standard Deviation 55.3 fL (36.4-46.3); Red Blood Count 2.46 M/uL (4.70-6.10); White Blood Count 5.34 K/ul (4.8-10.8)
[2024-07-05 06:21] LABS: Albumin Level 2.2 gm/dl (3.4-5.0); Bilirubin,Total 2.9 mg/dl (0.2-1.0); Calcium 8.1 mg/dl (8.6-10.3); Magnesium 1.8 mg/dl (1.7-2.4); Potassium 4.1 mmol/L (3.5-5.1)
[2024-07-05 06:27] LABS: Albumin Globulin Ratio 0.7 (0.9-2); BUN Creatinine Ratio 30.7 (10-20); Creatinine Clr Calc Pharmacy 102.1 ml/min; Est GFR (African American) 93.9 ml/min; Globulin 3.1 gm/dl (2.5-4.0); Total Protein 5.3 gm/dl (6.0-8.3)
--- NOTE | 2024-07-05 11:37 | Nephrology Progress Note ---
Date of Service July 05, 2024 Assessment & Plan Admission and Anticipated Discharge Date Admission Date: June 30, 2024 Subjective Assessment & Plan (1) Acute hyponatremia: Plan: His hyponatremia during last admissions had not responded to the conventional therapies, and continue to stay between 120-122, he had however stopped taking urea because of vomiting.He has been compliant with his home medications taking torsemide 40 mg twice daily with 1 g salt daily. again said he wont take the urea but keeps changing the mind na slightly higher to 128. Doubt we can get it higher than 130 . 125--130 is fine K is normal with higher dose of kcl for today Conintue torsemide 20 qAM Continue Salt tab 1 gm bid. Most important he needs to limit fluid to 1500 ml per day--this has been a challenge even as inpt and impossible as outpt. unless this is fixed nothing else matters kcl 20 bid. Urea 15 gm bid if he can tolerate. Rx for nausea Given Cirrhosis--125--130 might be the best we can achieve. na today 128 (2) Dizziness: Plan: likely related to hypotension, improved as blood pressure improves. Continue Midodrine 5 mg tid Subjective Patient seen and examined Denied any fever, chills, nausea, vomiting, abd pain, diarrhea Review of Systems Review of Systems: All systems reviewed & are unremarkable except as noted in HPI & below c/o dizziness, but better Physical Exam Physical Exam: Constitutional: no acute distress CV: First and second heart sounds Chest: normal respiratory effort at rest. Abdomen: soft, bowel sounds normal Extremities: No edema Neuro: alert, oriented to person, place, and time Results & Data Vital Signs (Past 12 Hours) Vital Signs Temp Pulse Pulse Resp BP Pulse Ox O2 Del Method 07/05/24 11:11 36.7 C 90 18 97/59 L 90 Room Air 07/05/24 06:56 80 07/05/24 02:49 36.6 C 84 14 99/59 L 95 Room Air 07/05/24 02:00 O2 Del Method 07/05/24 11:11 07/05/24 06:56 07/05/24 02:49 07/05/24 02:00 Room Air
--- NOTE | 2024-07-05 11:47 | Hospitalist Progress Note ---
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 Whenever he stands up and tries to ambulate he was feeling very dizzy and felt like going to pass out. Today while ambulating to bathroom had to hold onto the wall and lowered himself to the ground. He was living at his brother's house. He was using his brothers walker. He called EMS and per EMS his systolic blood pressure was in 50s. He was given 1L fluid and blood pressure improved. Orthostatic Hypotension Possible Sepsis Patient recently hospitalized and discharged on 06/28 Hypotension likely related to medication changes Concern for possible sepsis on presentation due to hypotension, elevated lactate, hypothermia Respiratory bio fire negative Chest x-ray unremarkable UA not suggestive of infection No acute process on CT abdomen pelvis Empiric antibiotics were given for possible sepsis, has since been discontinued Midodrine started during last admission increased to 5mg TID Has orthostatic hypotension Monitor orthostatic vitals - pt remains orthostatic Reviewed TTE from 10/2023 on [facility]. mild conc LVH, EF 60-64%, Grade I diastolic dysfunction, AV is moderate calcified, mod aortic valve stenosis, PASP 30 Continue to monitor Chronic Hyponatremia Sodium improved to 127 this AM Currently on NSS , IV lasix TID--->transitioned to po torsemide 20mg only, fluids discontinued Continue Urea 15 BID, sodium tab 1g BID nephrology consulted, appreciate recs Hypokalemia Hypophosphatemia Replete as needed Also on KCl 20mEq BID per nephrology GONZALES liver cirrhosis Mild elevation of LFTs Continue home Xifaxan and lactulose Spironolactone was stopped last admission and lasix was changed to torsemide at the time Currently on Lasix 40mg TID per nephrology Thrombocytopenia Likely in setting of cirrhosis Continue to monitor Hepatocellular carcinoma status post ablation on 08/02/2023 CT scan on admission showing 1.4 cm hypodense segment 5 hepatic lesion needs PCP [id number] liver protocol MRI is recommended to exclude a hepatocellular carcinoma Moderate aortic stenosis Pulm hypertension Stable Hyperlipidemia On statin Diabetes Continue home Lantus Hold metformin Sliding scale Will monitor History of gout on allopurinol BPH On Flomax DVT prophylaxis: SCDs in setting of thrombocytopenia Diet: Low sodium, DMII, 1500ml FR Dispo: PT/OT ordered for further recs Admission and Anticipated Discharge Date Admission Date: June 30, 2024 Subjective pt was seen laying in bed. Denied acute concerns. Per PT, orthostatic with activity. Pt denies dizziness at this time Review of Systems Review of Systems: All systems reviewed & are unremarkable except as noted in Subjective Physical Exam Physical Exam: General: Alert, oriented. Neuro: No gross deficits while laying in bed HEENT: NC/AT CV: RRR Resp: Breath sounds clear bilaterally, no increased effort of breathing. Abdomen: Soft, nontender Extremities: No edema in lower extremities bilaterally. Results & Data Results & Data Vital Signs (Past 12 Hours) Vital Signs Temp Pulse Pulse Resp BP Pulse Ox O2 Del Method 07/05/24 11:11 36.7 C 90 18 97/59 L 90 Room Air 07/05/24 06:56 80 07/05/24 02:49 36.6 C 84 14 99/59 L 95 Room Air 07/05/24 02:00 O2 Del Method 07/05/24 11:11 07/05/24 06:56 07/05/24 02:49 07/05/24 02:00 Room Air
[2024-07-06 08:02] LABS: Basophils # (auto) 0.09 K/uL (0.00-0.20); Eosinophils # (auto) 0.21 K/uL (0.00-0.50); Eosinophils % (auto) 4.8 %; Hematocrit (blood only) 26.2 % (42.0-52.0); Hemoglobin 9.2 g/dl (14.0-18.0); Immature Granulocytes # (auto) 0.02 K/uL (0.01-0.20); Immature Granulocytes % (auto) 0.5 %; Lymphocytes # (auto) 0.59 K/uL (1.20-3.40); Lymphocytes % (auto) 13.4 %; Mean Corpuscular Hemoglobin 36.7 pg (25.0-34.0); Mean Corpuscular Hgb Conc 35.1 g/dL (32.0-36.0); Mean Corpuscular Volume 104.4 fL (80.0-100.0); Mean Platelet Volume 10.6 fL (9.4-12.4); Monocytes # (auto) 0.89 K/uL (0.11-0.59); Monocytes % (auto) 20.2 %; Neutrophils % (auto) 59.1 %; Platelet Count 63 K/uL (130-400); RDW Standard Deviation 57.6 fL (36.4-46.3); Red Blood Count 2.51 M/uL (4.70-6.10)
[2024-07-06 08:08] LABS: Albumin Globulin Ratio 0.7 (0.9-2); Albumin Level 2.3 gm/dl (3.4-5.0); BUN Creatinine Ratio 24.8 (10-20); Bilirubin,Total 2.9 mg/dl (0.2-1.0); Calcium 7.9 mg/dl (8.6-10.3); Creatinine Clr Calc Pharmacy 85.2 ml/min; Est GFR (African American) 75.5 ml/min; Est GFR (Non-African American) 65.1 ml/min; Globulin 3.1 gm/dl (2.5-4.0); Magnesium 1.7 mg/dl (1.7-2.4); Total Protein 5.4 gm/dl (6.0-8.3)
[2024-07-06 11:33] VITALS: PULSE 86; RESP 18; TEMP 97.7; O2SAT 98
--- NOTE | 2024-07-06 14:25 | Discharge Summary ---
Discharge Summary Date of Service July 06, 2024 Principal Dx & Hospital Course #1 = Principal Diagnosis (1) Orthostatic hypotension: (2) Hyponatremia: Plan Pt is a 58-year-old male with past medical history significant for type 2 diabetes, hyperlipidemia, chronic idiopathic gout, history of hepatic encephalopathy, hypertension, moderate aortic stenosis, liver cirrhosis secondary to Wells, diverticulosis of colon, BPH, thrombocytopenia, history of hepatocellular carcinoma who was recently in the hospital for acute hyponatremia and discharged on June 28, 2024 who comes back because of feeling very dizzy at home. Whenever he stands up and tries to ambulate he was feeling very dizzy and felt like going to pass out. Today while ambulating to bathroom had to hold onto the wall and lowered himself to the ground. He was living at his brother's house. He was using his brothers walker. He called EMS and per EMS his systolic blood pressure was in 50s. He was given 1L fluid and blood pressure improved. Orthostatic Hypotension Possible Sepsis Patient recently hospitalized and discharged on 06/28 Hypotension likely related to medication changes Concern for possible sepsis on presentation due to hypotension, elevated lactate, hypothermia Respiratory bio fire negative Chest x-ray unremarkable UA not suggestive of infection No acute process on CT abdomen pelvis Empiric antibiotics were given for possible sepsis, has since been discontinued Midodrine started during last admission increased to 5mg TID, continue to titrate up. Has orthostatic hypotension Monitor orthostatic vitals, improving Reviewed TTE from 10/2023 on [facility]. mild conc LVH, EF 60-64%, Grade I diastolic dysfunction, AV is moderate calcified, mod aortic valve stenosis, PASP 30 On Flomax, consider alternative in setting of orthostatic hypotension Close PCP followup after discharge. Chronic Hyponatremia Sodium 120 on admission, improved to 130 on discharge. Neprhology was consulted. -Was on NSS , IV lasix TID initially--->transitioned to po torsemide 20mg only, fluids discontinued -Recommended/stated the following: "Conintue torsemide 20 qAM Continue Salt tab 1 gm bid. Most important he needs to limit fluid to 1500 ml per day--this has been a challenge even as inpt and impossible as outpt. unless this is fixed nothing else matters kcl 20 bid. Urea 15 gm bid if he can tolerate. Rx for nausea Given Cirrhosis--125--130 might be the best we can achieve. na today 128" Discussed with neprhology on day of discharge: Advised discharge with Urea 15mg BID, sodium tab 1g BID, torsemide 20mg daily and per Nephrology 1500ml Fluid restriction most important factor for his hyponatremia. Please encourage compliance. Close Nephrology and PCP follow up after discharge. Hypokalemia Hypophosphatemia Repleted as needed Continue home KCl 20mEq BID WELLS liver cirrhosis Mild elevation of LFTs Continue home Xifaxan and lactulose Spironolactone was stopped last admission and lasix was changed to torsemide at the time Continue torsemide 20mg daily per nephrology Thrombocytopenia Likely in setting of cirrhosis, 63K on discharge Continue to monitor PCP followup Hepatocellular carcinoma status post ablation on 08/02/2023 CT scan on admission showing 1.4 cm hypodense segment 5 hepatic lesion needs PCP [id number] liver protocol MRI is recommended to exclude a hepatocellular carcinoma Moderate aortic stenosis Pulm hypertension Stable Hyperlipidemia On statin Diabetes Continue home Lantus Held metformin Resume home regimen on discharge History of gout on allopurinol BPH On Flomax Consider alternative in setting of orthostatic hypotension Notes For Next Care Provider Per Nephrology 1500ml Fluid restriction most important factor for his hyponatremia. Please encourage compliance. Please ensure close Nephrology followup Followup on orthostatic hypotension, increase midodrine as needed Nonemergent liver protocol MRI is recommended to exclude a hepatocellular carcinoma based on imaging findings noted in report below Medication Changes From Visit Per Nephrology: Decreased to Torsemide 20mg daily Continue urea, sodium tabs and with fluid restriction of 1500ml Admission HPI Per Admitting Provider 58-year-old male with past medical history significant for type 2 diabetes, hyperlipidemia, chronic idiopathic gout, history of hepatic encephalopathy, hypertension, moderate aortic stenosis, liver cirrhosis secondary to Wells, diverticulosis of colon, BPH, thrombocytopenia, history of hepatocellular carcinoma who was recently in the hospital for acute hyponatremia and discharged on June 28, 2024 comes back because of feeling very dizzy at home. Whenever he stands up and tries to ambulate he was feeling very dizzy and felt like going to pass out. Today while ambulating to bathroom had to hold onto the wall and lowered himself to the ground. He was living at his brother's house. He was using his brothers walker. He called EMS and per EMS his systolic blood pressure was in 50s. He was given 1 L fluid and blood pressure improved. Currently alert and oriented. Able to give his history. Denies any headache. No blurred vision. No runny nose or sore throat. No cough. Denies chest pain or shortness of breath. No nausea. No abdominal pain. Was not able to micturate status post sahu catheter in the ER. Says he had 4 bowel movements today ,taking lactulose. His rectal temperature 34 in the ER. Currently on Wendy hugger. Past medical history. As mentioned above Past surgical history. Colonoscopy. EGD. IR cancer chemoembolization. Social history. Former use of smokeless tobacco quit in 2004. No alcohol use. No drug use. Family history. Mother had colon cancer. Hypertension. Father had diabetes. Emphysema. Hypertension. Black lung. Corneal transplant. Brother has pacemaker. Diabetes. Heart attack. Hypertension. Hyperlipidemia. Liver disease. Sister has rheumatoid arthritis. Admission Exam Per Admitting Provider General- Not in acute distress Head- atraumatic Eyes- PERRL. ENT- oropharynx dry Neck- supple, no JVD. Lungs- clear to auscultation, no wheezing or crackles Heart- regular rhythm; tachycardia, systolic murmur in aortic area, no gallop. Abdomen- normal bowel sounds, soft, nontender, no distension Extremities- no pretibial edema, no erythema seen. Neuro- alert, oriented PERRL, no facial palsy; no dysarthria; moves extremities. Discharge Exam General: Alert, oriented. Neuro: No gross deficits while laying in bed HEENT: NC/AT CV: RRR Resp: Breath sounds clear bilaterally, no increased effort of breathing. Abdomen: Soft, nontender Extremities: No edema in lower extremities bilaterally. Updated Medication List Medication Instructions Recorded Confirmed Type allopurinol 300 mg tablet 300 mg PO QAM 06/03/19 06/29/24 History metformin 500 mg tablet 500 mg PO BIDM 06/03/19 06/29/24 History multivitamin 1 tab PO QAM 06/03/19 06/29/24 History atorvastatin 20 mg tablet 20 mg PO QAM 04/21/21 06/29/24 History ascorbic acid (vitamin C) 1,000 mg 1 g PO QAM 08/27/23 06/29/24 History tablet (Vitamin C) tamsulosin 0.4 mg capsule 0.4 mg PO DAILY 10/04/23 06/29/24 History rifaximin 550 mg tablet (Xifaxan) 550 mg PO BID 01/02/24 06/29/24 History omeprazole 20 mg capsule,delayed 20 mg PO DAILYBB 02/27/24 06/29/24 History release lactulose 20 gram/30 mL oral 45 g (67.5 mL) PO TID Cirrhosis 30 02/29/24 06/29/24 Rx solution days #3,000 mL mupirocin 2 % topical ointment 1 applic EXT TID PRN Wound Care 06/21/24 06/29/24 History potassium chloride 10 mEq 20 meq (2 x 10 mEq) PO BID 30 days 06/28/24 06/29/24 Rx tablet,extended release(part/cryst) #120 tabs Lactobacillus acidophilus 10 10,000 mmu cells PO TID 06/29/24 06/29/24 History billion cell capsule (Probiotic) insulin glargine 100 unit/mL (3 10 unit subcut DAILY 06/29/24 06/29/24 History mL) subcutaneous pen (Lantus Solostar U-100 Insulin) midodrine 2.5 mg tablet 5 mg (2 x 2.5 mg) PO TIDM #60 tabs 07/06/24 Rx sodium chloride 1,000 mg soluble 1,000 mg PO BID 30 days #60 tabs 07/06/24 Rx tablet torsemide 20 mg tablet 20 mg PO QAM #30 tabs 07/06/24 Rx urea 15 gram oral powder packet 15 g PO BID #8 ea 07/06/24 Rx (Ure-Na) Hospital Stay Data Consultations 06/29/24 21:46 ED Decision to Admit Stat 06/30/24 08:00 Consult Nephrology Routine Diagnostic Imagining Performed 06/29/24 19:02 CT head/brain wo con Stat 06/29/24 19:29 CT Abd and Pelvis [CT abd pelvis IV con only] Stat Chest X-Ray 06/29/24 19:02 XR chest 1V portable CLINICAL HISTORY: weakness COMPARISON STUDY: Chest radiograph and chest CT June 21, 2024. FINDINGS: Lung volumes are normal. Lungs are clear. There is no pneumothorax or pleural effusion. Cardiac size is normal. Mediastinal contours are normal. There is no evidence for pulmonary edema. IMPRESSION: No acute cardiopulmonary findings. ACT 112: Negative or not required by law. Electronically signed by: Issac Rankin M.D. 06/29/2024 7:[address] 06/29/24 19:02 CT OF THE HEAD WITHOUT CONTRAST CLINICAL HISTORY: Weakness. COMPARISON STUDY: Head CT June 22, 2024. CT DOSE: 703.85 mGy.cm TECHNIQUE: Helical axial images of the head were obtained without IV contrast. Automated exposure control was utilized for the study. A dose lowering technique was utilized adhering to the principles of ALARA. FINDINGS: No acute intracranial hemorrhage, midline shift or mass effect is present. The ventricular system is unremarkable. The basal cisterns are patent. No extra-axial collections are present. There are no findings to suggest acute dural sinus thrombosis or acute territorial infarct. No significant calvarial abnormalities are present. Visualized portions of the sinuses and mastoid air cells are clear. IMPRESSION: No acute intracranial findings. ACT 112: Negative or not required by law. Electronically signed by: Issac Rankin M.D. 06/29/2024 7:32 PM Abdomen/Pelvis CT 06/29/24 19:29 CT OF THE ABDOMEN AND PELVIS WITH CONTRAST CLINICAL HISTORY: Abdominal pain. COMPARISON STUDY: CT of the abdomen and pelvis June 01, 2024. TECHNIQUE: Following IV administration of 93 mL of Optiray, axial images of the abdomen and pelvis were obtained from the lung bases to the proximal femurs. Images were reviewed in the axial, sagittal, and coronal planes. IV contrast was administered without complication. Automated exposure control was utilized for the study. A dose lowering technique was utilized adhering to the principles of ALARA. CT DOSE: 1717.1 mGy.cm FINDINGS: Lung bases are unremarkable. No pneumatosis, free air or portal venous gas is present. The liver is cirrhotic. The main and left portal veins are patent. The right portal vein is patent but diminutive. This is unchanged. A 1.4 cm hypodense segment 5 hepatic lesion on image 101 of 465 is noted. There are calcifications within the right hepatic lobe. These are benign. A small amount of ascites is noted. Varices formation is again noted as well as mild splenomegaly. Small right renal calculi are present. There are no ureteral calculi. There is no hydronephrosis. Adrenal glands, left kidney and pancreas are unremarkable. There is no evidence for a bowel obstruction. A Sahu balloon within the bladder is present. The appendix is normal. There are no acute fractures within the visualized skeletal structures. No fluid collections are present. Mesenteric stranding is likely related to portal hypertension. This is unchanged. Mild right colon wall thickening may also be due to portal hypertension. IMPRESSION: 1. No definite acute process within the abdomen or pelvis. 2. Cirrhosis with manifestations of portal hypertension including varices formation, splenomegaly and a small amount of ascites. 3. 1.4 cm hypodense segment 5 hepatic lesion. This measures above water attenuation. This is indeterminate, particularly given cirrhosis. Washout lesion on this portal venous phase study cannot be excluded. Nonemergent liver protocol MRI is recommended to exclude a small hepatocellular carcinoma. 4. Right nephrolithiasis. No ureteral calculi. No hydronephrosis. ACT 112: Positive. There are findings on this exam that require communication between the performing entity and the patient following Patient Test Result Information Act ([place] Act 112) guidelines. Electronically signed by: Issac Rankin M.D. 06/29/2024 7:56 PM Discharge Instructions Given to Patient (Per Discharging Provider) Lloyd, Per nephrology, you can be discharged. However, they recommend a STRICT FLUID RESTRICTION OF 1500ml DAILY. Per Dr. Reina, this will provide the most benefit for your low sodium levels. He also recommends continuing with your salt tablets 1000mg twice a day, torsemide at the reduced dose of 20mg a day and the urea. Continue with the midodrine to help with your orthostatic hypotension and follow up with your primary care provider. Consider an alternative to Flomax as it could be contributing to your symptoms as well. Please keep close follow up with your primary care provider and Nephrology after discharge. Please do not hesitate to come back to the emergency room if your symptoms worsen or return. It was a pleasure taking care of you while you were here. Total Time Total Time Spent Total Time Spent (In Minutes): 75
[2024-07-06 14:58] VITALS: BP 101/60
== END 2024-07-06 16:03 | disposition home or self-care (01) | DRG 312 ==
LOC: ED 18:50 → 2S 06-30 00:51 → SUATTDRO 06-30 00:51 → 2S 06-30 01:50

== ENCOUNTER 2024-07-18 11:31 | Inpatient (IN) ==
--- NOTE | 2024-07-18 11:58 | Emergency Department Note ---
Impression & Plan Abdominal pain, Constipation, Hypomagnesemia, Ascites, Hypokalemia ED Provider Note ED Provider Note NAME: SATISH HUERTA AGE:58 SEX: Male : 1965 ARRIVES VIA: EMS INFORMANT: Patient ED PROVIDER(s): Rosario Huynh DO CHIEF COMPLAINT: Abdominal pain, constipation HPI: This is a 58-year-old male who presents emergency room due to concern for abdominal pain. Patient states he did recently have a paracentesis as he has a history of Wells and liver cancer. He states several days later he began to feel as though he was starting to hold onto fluid in his abdomen again. He also noted some increased constipation the last 2 to 3 days. He states his last BM was 4 days ago. He states when he had the paracentesis last week they took 5 L of fluid off of his abdomen. He states he notes he does have a hernia at his bellybutton. He states sometimes it feels larger than others. He does not note any ongoing pain. He denies any fevers or chills or difficulty urinating. No recent diarrhea. Patient states he is taking his lactulose daily as prescribed. Patient states he is still taking his diuretics additionally to help with fluid retention. PAST MEDICAL HISTORY:See Below PAST SURGICAL HISTORY:See Below FAMILY HISTORY:See Below SOCIAL HISTORY:See Below HOME MEDICATIONS:See Below ALLERGIES:See Below VITALS:See Below PHYSICAL EXAMINATION: GENERAL: alert, well appearing, well nourished, no distress, non-toxic EYE EXAM: normal conjunctiva, PERRL and EOM's grossly intact OROPHARYNX: no exudate, no erythema, lips, buccal mucosa, and tongue normal and mucous membranes are dry NECK: supple, no nuchal rigidity, no adenopathy, non-tender LUNGS: Clear to auscultation. Normal chest wall mechanics, no w/r/r HEART: no murmurs, S1 normal and S2 normal ABDOMEN: abdomen soft, non-tender, normo-active bowel sounds, no masses, no rebound or guarding. Protuberant abdomen noted, umbilical hernia soft and easily reducible, nontender with palpation, no overlying erythema; mild fluid wave noted. SKIN: no rashes, petechiae, orbruising; jaundiced appearing UPPER EXTREMITIES: upper extremities are grossly normal. FROM, nml pulses b/l. LOWER EXTREMITIES: No pitting edema. FROM, nml pulses b/l. NEURO EXAM: Normal sensorium, cranial nerves II-XII grossly intact, normal speech, no facial droop,nogross weakness of arms, no gross weakness of legs. Gross sensation intact. No ataxia. Vital Signs: reviewed and remarkable Differential Diagnosis: Worsening ascites, constipation, bowel obstruction, perforation, mesenteric ischemia, SBP, medication ADR, dehydration, as well as others were considered MEDICAL DECISION MAKING: This is a 58-year-old male with complicated past medical history including Wells and recent paracentesis who presents emergency department due to concern for worsening abdominal pain which began several days ago. Patient states he has also had increased constipation recently. Patient is concerned that he is filling up with fluid again. He denies fevers or chills. Labs drawn and sent, IV established, x-ray performed at bedside and EKG and interpreted by me and patient monitored on telemetry. Patient was noted to have moderate stool on KUB, no obvious bowel obstruction. His exam was not consistent with SBP. Patient sent for ultrasound to evaluate for further ascites which was noted. Patient is concerned due to need for repeat paracentesis. Due to worsening pain, complicated history, case was discussed with the hospitalist team. Patient's labs are reassuring and do appear improved compared to his most recent admission, several maladies again noted however most of these appear stable. Patient's sodium appears stable compared to prior. Patient was given oral potassium repletion and IV magnesium repletion. Consultation(s): 1442: Delta text sent to John Moore PA-C. He is gone for the day today and not here tomorrow. Suggest perhaps if patient needs a repeat paracentesis radiology can do this tomorrow. 1615: Discussed with SAMMIE Chou, [facility] hospitalist team, for additional evaluation and management. ER Treatment Provided: See below Diagnostics Interpreted By Me: -ECG: Sinus tachycardia at 113, normal axis, normal intervals, no acute ST/T wave changes -Cardiac Monitoring: An order was placed for continuous cardiac monitoring. The monitor shows a rate of 98 with normal sinus rhythm. -Laboratory studies: As stated above and show below. 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 "if i get up to fast". S/P abdominal paracentesis Fracture of rib of right side 2013 Anaplasmosis 2019 Acute hepatic encephalopathy Cardiac murmur HX Hypertension Right rib fracture hx ~. Surgical History History of esophagogastroduodenoscopy (EGD) History of colonoscopy Family History Mother History of colonoscopy Brother Family history of diabetes mellitus Brother Family history of diabetes mellitus Grandmother (Paternal) Family history of diabetes mellitus Other No family history of adverse response to anesthesia Social History Smoking Status: Never smoker Tobacco Type: Smokeless Tobacco (Dip or Chew) Second Hand Exposure: No; Do You Dip or Chew Tobacco: Yes; Hx Alcohol Use: No Hx Substance Use: No Preferred Language: Nepali Communication Ability: Effective Sleep Technologist Required: No Beliefs That Will Affect Care: None marital status: Single Current Living Situation: Family Current Living Situation Comment: With brother and mother Other Information That Helps Us Care for You: No Feels Safe at Home: Yes Safety Concerns: Feels Safe At This Time Assistive Devices: Cane, Scooter/Electric Scooter and Walker Allergies Allergies Allergy/AdvReac Type Severity Reaction Status Date / Time aspirin AdvReac Intermediate NOSE Verified 06/29/24 20:54 BLEEDS--IF TAKES REGULARLY salicylates AdvReac Intermediate NOSE BLEEDS Verified 06/29/24 20:54 Home Meds Home Medications Medication Instructions Recorded Confirmed allopurinol 300 mg tablet 300 mg PO QAM 06/03/19 07/18/24 metformin 500 mg tablet 500 mg PO BIDM 06/03/19 07/18/24 multivitamin 1 tab PO QAM 06/03/19 07/18/24 atorvastatin 20 mg tablet 20 mg PO QAM 04/21/21 07/18/24 ascorbic acid (vitamin C) 1,000 mg 1 g PO QAM 08/27/23 07/18/24 tablet (Vitamin C) tamsulosin 0.4 mg capsule 0.4 mg PO DAILY 10/04/23 07/18/24 rifaximin 550 mg tablet (Xifaxan) 550 mg PO BID 01/02/24 07/18/24 omeprazole 20 mg capsule,delayed 20 mg PO DAILYBB 02/27/24 07/18/24 release mupirocin 2 % topical ointment 1 applic EXT TID PRN Wound Care 06/21/24 07/18/24 Lactobacillus acidophilus 10 10,000 mmu cells PO TID 06/29/24 07/18/24 billion cell capsule (Probiotic) insulin glargine 100 unit/mL (3 10 unit subcut DAILY 06/29/24 07/18/24 mL) subcutaneous pen (Lantus Solostar U-100 Insulin) lactulose 20 gram/30 mL oral 30 g PO TID Cirrhosis 07/18/24 07/18/24 solution Previous Rx's Medication Instructions Recorded potassium chloride 10 mEq 20 meq (2 x 10 mEq) PO BID 30 days 06/28/24 tablet,extended release(part/cryst) #120 tabs midodrine 2.5 mg tablet 5 mg (2 x 2.5 mg) PO TIDM #60 tabs 07/06/24 sodium chloride 1,000 mg soluble 1,000 mg PO BID 30 days #60 tabs 07/06/24 tablet torsemide 20 mg tablet 20 mg PO QAM #30 tabs 07/06/24 urea 15 gram oral powder packet 15 g PO BID #8 ea 07/06/24 (Ure-Na) Results & Data (ED) Vital Signs Vital Signs - 24 hr 07/18/24 15:57 07/18/24 16:03 07/18/24 16:30 Pulse Rate 109 H 106 H 109 H Pulse Rate from SpO2 Sensor 109 H 106 H 111 H Respiratory Rate 18 16 16 Blood Pressure 102/61 92/67 L Blood Pressure Mean 74 75 Pulse Oximetry 98 99 97 07/18/24 17:03 Pulse Rate 102 H Pulse Rate from SpO2 Sensor 102 H Respiratory Rate 16 Blood Pressure 132/78 Blood Pressure Mean 96 Pulse Oximetry 97 Laboratory Data 07/19/24 05:19 07/19/24 05:19 Lab Results 07/18/24 07/18/24 Range/Units 11:44 13:35 WBC 5.44 (4.8-10.8) K/ul RBC 2.79 L (4.70-6.10) M/uL Hgb 10.1 L (14.0-18.0) g/dl Hct 29.5 L (42.0-52.0) % MCV 105.7 H (80.0-100.0) fL MCH 36.2 H (25.0-34.0) pg MCHC 34.2 (32.0-36.0) g/dL RDW Std Deviation 60.7 H (36.4-46.3) fL RDW Coeff of Polo 15.6 H (11.5-14.5) % Plt Count 76 L (130-400) K/uL MPV 10.2 (9.4-12.4) fL Immature Gran % (Auto) 0.2 % Neut % (Auto) 66.7 % Lymph % (Auto) 11.9 % Cochran % (Auto) 16.7 % Eos % (Auto) 2.8 % Baso % (Auto) 1.7 % Neut # (Auto) 3.63 (1.40-6.50) K/uL Lymph # (Auto) 0.65 L (1.20-3.40) K/uL Cochran # (Auto) 0.91 H (0.11-0.59) K/uL Eos # (Auto) 0.15 (0.00-0.50) K/uL Baso # (Auto) 0.09 (0.00-0.20) K/uL Immature Gran # (Auto) 0.01 (0.01-0.20) K/uL PT 16.0 H (9.0-12.0) Seconds INR 1.5 H (0.9-1.1) Sodium 131 L (136-145) mmol/L Potassium 2.9 L (3.5-5.1) mmol/L Chloride 95 L (98-107) mmol/L Carbon Dioxide 24 (21-32) mmol/L Anion Gap 12 H (3-11) BUN 8 (6-23) mg/dl Creatinine 1.12 (0.6-1.4) mg/dl Est Cr Clr Drug Dosing 93.2 ml/min Est GFR ( Amer) 82.9 ml/min Est GFR (Non-Af Amer) 71.5 ml/min BUN/Creatinine Ratio 7.1 L (10-20) Glucose 205 H (70-99(Fasting)) mg/dl Calcium 8.2 L (8.6-10.3) mg/dl Magnesium 1.5 L (1.7-2.4) mg/dl Total Bilirubin 4.0 H (0.2-1.0) mg/dl AST 59 H (13-39) U/L ALT 40 (7-52) U/L Alkaline Phosphatase 130 H (34-104) U/L Ammonia 42.0 (18-72) umol/L Total Protein 6.2 (6.0-8.3) gm/dl Albumin 2.6 L (3.4-5.0) gm/dl Globulin 3.6 (2.5-4.0) gm/dl Albumin/Globulin Ratio 0.7 L (0.9-2) Lipase 55 (11-82) U/L Administered Medications Allopurinol (Allopurinol 300 Mg Tab) [address] [facility] Stop: 08/18/24 08:59 Last Admin: 07/19/24 08:29 Dose: 300 mg Documented By: ANN MARIE Ascorbic Acid (Ascorbic Acid 500 Mg Tab) [facility] Stop: 08/18/24 08:59 Last Admin: 07/19/24 08:29 Dose: 1,000 mg Documented By: ANN MARIE Atorvastatin Calcium (Atorvastatin 20 Mg Tab) [facility] Stop: 08/18/24 08:59 Last Admin: 07/19/24 08:29 Dose: 20 mg Documented By: ANN MARIE Docusate Sodium (Docusate Sodium 100 Mg Cap) 100 mg PO BID [facility] Stop: 08/18/24 08:59 Last Admin: 07/19/24 08:44 Dose: 100 mg Documented By: ANN MARIE Insulin Aspart (Insulin Aspart Per Unit Charge) 0 units SC ACHS [facility] Stop: 08/17/24 20:59 Last Admin: 07/19/24 12:40 Dose: 7 units Documented By: ANN MARIE Co-signed By: AMY Admin: 07/19/24 10:41 Dose: 5 units Documented By: ANN MARIE Co-signed By: AMY Admin: 07/18/24 21:06 Dose: Not Given Documented By: AEBrice Lactulose (Lactulose Syrup 10 Gm/15 Ml Btl 960 Ml) 45 gm PO TID [facility] Stop: 08/17/24 20:59 Last Admin: 07/19/24 14:07 Dose: 45 gm Documented By: ANN MARIE Admin: 07/19/24 10:41 Dose: 45 gm Documented By: ANN MARIE Admin: 07/18/24 21:29 Dose: 45 gm Documented By: JAMES Midodrine (Midodrine Hcl 2.5 Mg Tab) 5 mg PO TIDM [facility] Stop: 08/18/24 07:59 Last Admin: 07/19/24 12:41 Dose: 5 mg Documented By: ANN MARIE Admin: 07/19/24 08:28 Dose: 5 mg Documented By: ANN MARIE Multivitamins (Multivitamin Tab) 1 tab PO QAM [facility] Stop: 08/18/24 08:59 Last Admin: 07/19/24 08:30 Dose: 1 tab Documented By: ANN MARIE Pantoprazole Sodium (Pantoprazole 40 Mg Tab) 40 mg PO DAILYBB [facility] Stop: 08/18/24 06:29 Last Admin: 07/19/24 05:30 Dose: 40 mg Documented By: JAMES Potassium Chloride (Potassium Chloride Crtab 20 Meq Tabcr) 20 meq PO BID17 [facility] Stop: 08/17/24 20:59 Last Admin: 07/19/24 08:44 Dose: 20 meq Documented By: ANN MARIE Admin: 07/18/24 21:29 Dose: 20 meq Documented By: JAMES Rifaximin (Rifaximin 550 Mg Tablet) 550 mg PO BID [facility] Stop: 08/17/24 20:59 Last Admin: 07/19/24 08:30 Dose: 550 mg Documented By: ANN MARIE Admin: 07/18/24 21:48 Dose: 550 mg Documented By: JAMES Sodium Chloride (Sodium Chloride 1 Gm Tablet) 1 gm PO BID [facility] Stop: 08/17/24 20:59 Last Admin: 07/19/24 08:30 Dose: 1 gm Documented By: ANN MARIE Admin: 07/18/24 21:48 Dose: 1 gm Documented By: JAMES Tamsulosin HCl (Tamsulosin Hcl 0.4 Mg Cap) 0.4 mg PO DAILY [facility] Stop: 08/18/24 08:59 Last Admin: 07/19/24 08:30 Dose: 0.4 mg Documented By: ANN MARIE Torsemide (Torsemide 20 Mg Tab) 20 mg PO QAM [facility] Stop: 08/18/24 08:59 Last Admin: 07/19/24 08:31 Dose: 20 mg Documented By: ANN MARIE Urea (Urea (Urea-Na) 15 Gm Pack) 15 gm PO BID [facility] Stop: 08/17/24 20:59 Last Admin: 07/19/24 08:35 Dose: Not Given Documented By: ANN MARIE Admin: 07/18/24 21:48 Dose: Not Given Documented By: JAMES Discontinued Medications Magnesium Sulfate/Dextrose (Magnesium Sulfate / D5w) 1 gm in 100 mls @ 100 mls/hr IV NOW STA Stop: 07/18/24 13:53 Last Infusion: 07/18/24 14:18 Dose: Infused Documented By: Admin: 07/18/24 13:09 Dose: 100 mls/hr Documented By: SO Sodium Chloride (Nss) 500 mls @ 999 mls/hr IV .Q31M ONE Stop: 07/18/24 13:41 Last Infusion: 07/18/24 14:58 Dose: Infused Documented By: Admin: 07/18/24 14:07 Dose: 999 mls/hr Documented By: HUBERT Magnesium Sulfate/Dextrose (Magnesium Sulfate / D5w) 1 gm in 100 mls @ 50 mls/hr IV 1715 ONE Stop: 07/18/24 19:14 Last Infusion: 07/18/24 20:53 Dose: Infused Documented By: AErBice Admin: 07/18/24 18:51 Dose: 50 mls/hr Documented By: JUAN Magnesium Hydroxide (Magnesium Hydroxide Susp 30 Ml Udc) 30 ml PO NOW ONE Stop: 07/18/24 14:38 Last Admin: 07/18/24 14:54 Dose: 30 ml Documented By: VME Metoprolol Tartrate (Metoprolol Tartrate 25 Mg Tab) 12.5 mg PO NOW STA Stop: 07/19/24 00:01 Last Admin: 07/19/24 00:22 Dose: 12.5 mg Documented By: AEM Potassium Chloride (Potassium Chloride Crtab 20 Meq Tabcr) 40 meq PO NOW STA Stop: 07/18/24 12:55 Last Admin: 07/18/24 13:07 Dose: 40 meq Documented By: VME Potassium Chloride (Potassium Chloride Crtab 20 Meq Tabcr) 40 meq PO NOW STA Stop: 07/18/24 17:12 Last Admin: 07/18/24 18:51 Dose: 40 meq Documented By: GCC Imaging Data Radiologist's Impression: Chest X-Ray 07/18/24 11:51 XR chest 1V portable HISTORY: 58 years-old Male sob acute shortness of breath COMPARISON: 06/29/2024 TECHNIQUE: AP view of the chest FINDINGS: Lung volumes are normal. Lungs are clear. There is no pneumothorax or pleural effusion. Cardiac size is normal. Mediastinal contours are normal. There is no evidence for pulmonary edema. IMPRESSION: No acute cardiopulmonary findings. ACT 112: Negative or not required by law. The above report was generated using voice recognition software. It may contain grammatical, syntax or spelling errors. Electronically signed by: Alfredo Thornton M.D. 07/18/2024 1:50 PM KUB X-Ray 07/18/24 11:51 KUB HISTORY: Generalized abdominal pain. Constipation. COMPARISON: Abdomen and pelvis CT 06/29/2024. FINDINGS: The bowel gas pattern is unremarkable. There are no dilated loops of small bowel to suggest an obstruction. No renal calculi. No ureteral calculi. No pneumoperitoneum or pneumatosis. There is moderate fecal retention. IMPRESSION: 1. Nonobstructive bowel gas pattern. 2. Moderate fecal retention. ACT 112: Negative or not required by law. Electronically signed by: Huber Alvarado M.D. 07/18/2024 1:22 PM Abdomen Ultrasound 07/18/24 14:55 US abdomen ltd ascites CLINICAL HISTORY: abd distention, hx ascites COMPARISON STUDY: Abdomen and pelvis CT 06/29/2024. FINDINGS: There is a small to moderate amount of scattered ascites most pronounced within the right upper quadrant. Nodular contour to the liver consistent with cirrhosis. There is an umbilical hernia containing fluid. IMPRESSION: Small to moderate amount of ascites. ACT 112: Negative or not required by law. Electronically signed by: Huber Alvarado M.D. 07/18/2024 4:07 PM Discharge Plan Visit Data Chief Complaint: Abdominal Pain Stated Complaint: AB PAIN ED Provider: Rosario Huynh Discharge Problem: Abdominal pain, Constipation, Hypomagnesemia, Ascites, Hypokalemia Patient Disposition: Admitted As Inpatient Discharge Instructions Interventions: ED Discharge Assessment Last Done: 07/18/24 20:16 Discharge Problem: Abdominal pain Qualifiers: Abdominal location: generalized Qualified Code(s): R10.84 - Generalized abdominal pain Constipation Qualifiers: Constipation type: unspecified constipation type Qualified Code(s): K59.00 - Constipation, unspecified
[2024-07-18 12:05] LABS: Basophils # (auto) 0.09 K/uL (0.00-0.20); Basophils % (auto) 1.7 %; Eosinophils # (auto) 0.15 K/uL (0.00-0.50); Eosinophils % (auto) 2.8 %; Hematocrit (blood only) 29.5 % (42.0-52.0); Hemoglobin 10.1 g/dl (14.0-18.0); Immature Granulocytes # (auto) 0.01 K/uL (0.01-0.20); Immature Granulocytes % (auto) 0.2 %; Lymphocytes # (auto) 0.65 K/uL (1.20-3.40); Lymphocytes % (auto) 11.9 %; Mean Corpuscular Hemoglobin 36.2 pg (25.0-34.0); Mean Corpuscular Hgb Conc 34.2 g/dL (32.0-36.0); Mean Corpuscular Volume 105.7 fL (80.0-100.0); Mean Platelet Volume 10.2 fL (9.4-12.4); Monocytes # (auto) 0.91 K/uL (0.11-0.59); Monocytes % (auto) 16.7 %; Neutrophils # (auto) 3.63 K/uL (1.40-6.50); Neutrophils % (auto) 66.7 %; Platelet Count 76 K/uL (130-400); RDW Coefficient of Variation 15.6 % (11.5-14.5); RDW Standard Deviation 60.7 fL (36.4-46.3); Red Blood Count 2.79 M/uL (4.70-6.10); White Blood Count 5.44 K/ul (4.8-10.8)
[2024-07-18 12:18] LABS: Albumin Globulin Ratio 0.7 (0.9-2); Albumin Level 2.6 gm/dl (3.4-5.0); BUN Creatinine Ratio 7.1 (10-20); Calcium 8.2 mg/dl (8.6-10.3); Creatinine Clr Calc Pharmacy 93.2 ml/min; Est GFR (African American) 82.9 ml/min; Est GFR (Non-African American) 71.5 ml/min; Globulin 3.6 gm/dl (2.5-4.0); Magnesium 1.5 mg/dl (1.7-2.4); Potassium 2.9 mmol/L (3.5-5.1); Total Protein 6.2 gm/dl (6.0-8.3)
[2024-07-18 12:25] LABS: INR 1.5 (0.9-1.1)
[2024-07-18] MEDS: POTASSIUM CHLORIDE CRTAB 20 MEQ TABCR PO STA ×2 (13:07→18:51)
[2024-07-18] MEDS: MAGNESIUM SULFATE / D5W 1 GM/100 ML BAG IV STA (13:09)
--- NOTE | 2024-07-18 13:23 | XRay Report ---
KUB HISTORY: Generalized abdominal pain. Constipation. COMPARISON: Abdomen and pelvis CT 06/29/2024. FINDINGS: The bowel gas pattern is unremarkable. There are no dilated loops of small bowel to suggest an obstruction. No renal calculi. No ureteral calculi. No pneumoperitoneum or pneumatosis. There is moderate fecal retention. IMPRESSION: 1. Nonobstructive bowel gas pattern. 2. Moderate fecal retention. ACT 112: Negative or not required by law. Electronically signed by: Huber Alvarado M.D. 07/18/2024 1:22 PM
--- NOTE | 2024-07-18 13:51 | XRay Report ---
XR chest 1V portable HISTORY: 58 years-old Male sob acute shortness of breath COMPARISON: 06/29/2024 TECHNIQUE: AP view of the chest FINDINGS: Lung volumes are normal. Lungs are clear. There is no pneumothorax or pleural effusion. Cardiac size is normal. Mediastinal contours are normal. There is no evidence for pulmonary edema. IMPRESSION: No acute cardiopulmonary findings. ACT 112: Negative or not required by law. The above report was generated using voice recognition software. It may contain grammatical, syntax o r spelling errors. Electronically signed by: Alfredo Thronton M.D. 07/18/2024 1:50 PM
[2024-07-18] MEDS: SODIUM CHLORIDE 0.9% 500 ML IV ONE (14:07)
--- NOTE | 2024-07-18 14:51 | Electrocardiogram Report ---
Test Reason : Blood Pressure : */* mmHG Vent. Rate : 113 BPM Atrial Rate : 113 BPM P-R Int : 142 ms QRS Dur : 86 ms QT Int : 356 ms P-R-T Axes : 54 44 92 degrees QTcB Int : 488 ms Sinus tachycardia Diffuse Minor Nonspecific ST and T wave abnormality Abnormal ECG When compared with ECG of 29-Jun-2024 18:57, No significant change was found Confirmed by Skip Gomes ([id number]) on 07/18/2024 2:51:03 PM Referred By: REFERRED SELF Confirmed By: Skip Gomes
[2024-07-18] MEDS: MAGNESIUM HYDROXIDE SUSP 30 ML UDC PO ONE (14:54)
--- NOTE | 2024-07-18 16:09 | Ultrasound Report ---
US abdomen ltd ascites CLINICAL HISTORY: abd distention, hx ascites COMPARISON STUDY: Abdomen and pelvis CT 06/29/2024. FINDINGS: There is a small to moderate amount of scattered ascites most pronounced within the right u pper quadrant. Nodular contour to the liver consistent with cirrhosis. There is an umbilical hernia c ontaining fluid. IMPRESSION: Small to moderate amount of ascites. ACT 112: Negative or not required by law. Electronically signed by: Huber Alvarado M.D. 07/18/2024 4:07 PM
--- NOTE | 2024-07-18 16:35 | History & Physical Report ---
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 Work-up in the ED showed moderate fecal retention, mild to moderate ascites. Suspect both are contributed to patient's bloating and discomfort. Additionally, it is unclear how compliant patient has been with recommended medications as there seems to be some confusion on what doses he has been taking of several medications, specifically the lactulose and midodrine, since discharge earlier this month. - Admit to med telemetry due to multiple electrolyte abnormalities - Repleting both potassium and magnesium - recheck in the AM - Resume correct dose of lactulose, add prn dulcolax, consider enema pending response to current regimen - Repeat KUB in the AM - Consult GI for assistance with management (2) Abdominal pain: Plan: Likely multifactorial due to constipation and ascites (3) 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: Plan: Pt has been evaluated by transplant clinic in [place] - pt is not currently listed, per pt due to aortic stenosis, chart also notes insurance/financial concerns Continue lactulose/Xifaxan GI evaluation as above (4) Ascites: Plan: Recurrent issue - last paracentesis was 07/09 Continue torsemide May need to consider repeat paracentesis during admission (5) Hepatic encephalopathy: Plan: NH4 today was 42 Lactulose/Xifaxan as above (6) Diabetes mellitus, type 2: Plan: Insulin sliding scale while admitted Diabetic diet BSG ACHS (7) Hyponatremia: Plan: Chronic issue - sodium today 131 which appears to be around patient's baseline Fluid restriction as previously recommended (1500 ml) Continue salt tablets Plan Pt seen and reviewed with collaborating physician, Dr. Lopez. Plan of care discussed and as outlined above. Code status: full code DVT prophylaxis: SCDs in view of thrombocytopenia Admit to med telemetry. PT/OT evaluations ordered. 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 Pt has been admitted multiples times in the last year with most recent admission being 06/30- 07/06 for orthostatic hypotension and hyponatremia. His midodrine dose was increased, torsemide dose was adjusted to 20 mg daily, continued on salt tablets TID. A 1500 ml fluid restriction was recommended but pt seems to have had difficulty complying with this recommendation. He reports that he underwent a paracentesis last week - records reviewed, pt underwent paracentesis on 07/09 with removal of 5.6 L of fluid. Pt reports he felt well initially after the paracentesis. However, three days ago he noted some mild bloating. This has continued to worsen since it started, now has associated discomfort. This morning, he developed dry heaves. His appetite has been decreased with limited oral intake. He also notes constipation despite taking lactulose TID - on Monday (3 days ago), he had two normal BMs. No BM on Monday or Monday. Today, he has had two small BMs in the ED after receiving milk of mag. He denies fevers, chills, chest pain, shortness of breath, syncope, dizziness. Upon review of his medication list, pt reports taking 45 ml (not recommended 67.5 ml) of lactulose 2-3x/day - may miss doses due to GI upset/nausea, especially with the potassium. He is also unsure how often he is taking the midodrine. He noted significant weakness and fatigue after discharge from the hospital but this has gradually been improving - now able to ambulate with a cane, which is his baseline (prior was using a walker). Pt attempted to call radiology this AM to schedule another paracentesis but was told that they had no openings today. Allergies Allergy/AdvReac Type Severity Reaction Status Date / Time aspirin AdvReac Intermediate NOSE Verified 06/29/24 20:54 BLEEDS--IF TAKES REGULARLY salicylates AdvReac Intermediate NOSE BLEEDS Verified 06/29/24 20:54 Home Medications Medication Instructions Recorded Confirmed Type allopurinol 300 mg tablet 300 mg PO QAM 06/03/19 07/18/24 History metformin 500 mg tablet 500 mg PO BIDM 06/03/19 07/18/24 History multivitamin 1 tab PO QAM 06/03/19 07/18/24 History atorvastatin 20 mg tablet 20 mg PO QAM 04/21/21 07/18/24 History ascorbic acid (vitamin C) 1,000 mg 1 g PO QAM 08/27/23 07/18/24 History tablet (Vitamin C) tamsulosin 0.4 mg capsule 0.4 mg PO DAILY 10/04/23 07/18/24 History rifaximin 550 mg tablet (Xifaxan) 550 mg PO BID 01/02/24 07/18/24 History omeprazole 20 mg capsule,delayed 20 mg PO DAILYBB 02/27/24 07/18/24 History release mupirocin 2 % topical ointment 1 applic EXT TID PRN Wound Care 06/21/24 07/18/24 History potassium chloride 10 mEq 20 meq (2 x 10 mEq) PO BID 30 days 06/28/24 07/18/24 Rx tablet,extended release(part/cryst) #120 tabs Lactobacillus acidophilus 10 10,000 mmu cells PO TID 06/29/24 07/18/24 History billion cell capsule (Probiotic) insulin glargine 100 unit/mL (3 10 unit subcut DAILY 06/29/24 07/18/24 History mL) subcutaneous pen (Lantus Solostar U-100 Insulin) midodrine 2.5 mg tablet 5 mg (2 x 2.5 mg) PO TIDM #60 tabs 07/06/24 07/18/24 Rx sodium chloride 1,000 mg soluble 1,000 mg PO BID 30 days #60 tabs 07/06/24 07/18/24 Rx tablet torsemide 20 mg tablet 20 mg PO QAM #30 tabs 07/06/24 07/18/24 Rx urea 15 gram oral powder packet 15 g PO BID #8 ea 07/06/24 07/18/24 Rx (Ure-Na) lactulose 20 gram/30 mL oral 30 g PO TID Cirrhosis 07/18/24 07/18/24 History solution Past Med/Surg History Problem List (Updated 07/18/24 @ 18:07 by Suzy Arredondo PA-C) Constipation (Acute) Abdominal pain (Acute) Hyponatremia Orthostatic hypotension Dizziness (Acute) Medical non-compliance (Acute) Hyperammonemia (Acute) Ascites (Acute) Urinary retention Cirrhosis (Acute) Morbid obesity Hepatic encephalopathy 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 "if i get up to fast". S/P abdominal paracentesis Fracture of rib of right side 2013 Anaplasmosis 2019 Acute hepatic encephalopathy Cardiac murmur HX Hypertension Right rib fracture hx ~. Surgical History History of esophagogastroduodenoscopy (EGD) History of colonoscopy Family History Mother History of colonoscopy Brother Family history of diabetes mellitus Brother Family history of diabetes mellitus Grandmother (Paternal) Family history of diabetes mellitus Other No family history of adverse response to anesthesia Social History Smoking Status: Former smoker Tobacco Type: Smokeless Tobacco (Dip or Chew) Second Hand Exposure: No; Do You Dip or Chew Tobacco: Yes; Hx Alcohol Use: No Hx Substance Use: No Preferred Language: Romanian Communication Ability: Effective Standard Machine Stitcher Required: No Beliefs That Will Affect Care: None marital status: Single Current Living Situation: Family Current Living Situation Comment: With brother and mother Feels Safe at Home: Yes Assistive Devices: Cane, Walker and Wheelchair Review of Systems Review of Systems: All systems reviewed & are unremarkable except as noted in Subjective Physical Exam Physical Exam: General: awake, alert, NAD HEENT: PERRL, no scleral icterus noted, moist oral mucosa Neck: trachea midline Heart: RRR, +systolic murmur Lungs: CTA bilaterally Abdomen: softly distended, +BS, non-tender, flank dullness to percussion Extremities: no pedal edema, distal pulses intact and equal Neurologic: moving all extremities, mildly slowed speech, some difficulty recalling recent events/medications Results & Data Results & Data Vital Signs (Past 12 Hours) Vital Signs Temp Pulse Pulse Resp BP BP Pulse Ox 07/18/24 16:03 106 H 16 102/61 99 07/18/24 15:57 109 H 18 98 07/18/24 15:00 107 H 17 115/61 99 07/18/24 14:30 110/56 L 07/18/24 14:30 102 H 22 97 07/18/24 14:03 103 H 14 99 07/18/24 14:00 113/60 07/18/24 13:57 105 H 18 99 07/18/24 13:30 104 H 20 94 07/18/24 13:30 104/59 L 07/18/24 13:23 103 H 07/18/24 13:15 110 H 20 100 07/18/24 13:14 113 H 20 112/58 L 100 07/18/24 13:10 112/58 L 07/18/24 12:33 100 07/18/24 12:30 110 H 23 100 07/18/24 12:30 101/72 07/18/24 12:22 107 H 16 97/67 L 100 07/18/24 12:00 97/67 L 07/18/24 12:00 107 H 11 L 100 07/18/24 11:45 115 H 17 100 07/18/24 11:35 36.5 C 113 H 22 123/82 100 O2 Del Method 07/18/24 16:03 07/18/24 15:57 07/18/24 15:00 07/18/24 14:30 07/18/24 14:30 07/18/24 14:03 07/18/24 14:00 07/18/24 13:57 07/18/24 13:30 07/18/24 13:30 07/18/24 13:23 07/18/24 13:15 07/18/24 13:14 Room Air 07/18/24 13:10 07/18/24 12:33 07/18/24 12:30 07/18/24 12:30 07/18/24 12:22 07/18/24 12:00 07/18/24 12:00 07/18/24 11:45 07/18/24 11:35 Room Air Laboratory Results Lab Results 07/18/24 07/18/24 Range/Units 11:44 13:35 WBC 5.44 (4.8-10.8) K/ul RBC 2.79 L (4.70-6.10) M/uL Hgb 10.1 L (14.0-18.0) g/dl Hct 29.5 L (42.0-52.0) % MCV 105.7 H (80.0-100.0) fL MCH 36.2 H (25.0-34.0) pg MCHC 34.2 (32.0-36.0) g/dL RDW Std Deviation 60.7 H (36.4-46.3) fL RDW Coeff of [place] 15.6 H (11.5-14.5) % Plt Count 76 L (130-400) K/uL MPV 10.2 (9.4-12.4) fL Immature Gran % (Auto) 0.2 % Neut % (Auto) 66.7 % Lymph % (Auto) 11.9 % [place] % (Auto) 16.7 % Eos % (Auto) 2.8 % Baso % (Auto) 1.7 % Neut # (Auto) 3.63 (1.40-6.50) K/uL Lymph # (Auto) 0.65 L (1.20-3.40) K/uL [place] # (Auto) 0.91 H (0.11-0.59) K/uL Eos # (Auto) 0.15 (0.00-0.50) K/uL Baso # (Auto) 0.09 (0.00-0.20) K/uL Immature Gran # (Auto) 0.01 (0.01-0.20) K/uL PT 16.0 H (9.0-12.0) Seconds INR 1.5 H (0.9-1.1) Sodium 131 L (136-145) mmol/L Potassium 2.9 L (3.5-5.1) mmol/L Chloride 95 L (98-107) mmol/L Carbon Dioxide 24 (21-32) mmol/L Anion Gap 12 H (3-11) BUN 8 (6-23) mg/dl Creatinine 1.12 (0.6-1.4) mg/dl Est Cr Clr Drug Dosing 93.2 ml/min Est GFR ( Amer) 82.9 ml/min Est GFR (Non-Af Amer) 71.5 ml/min BUN/Creatinine Ratio 7.1 L (10-20) Glucose 205 H (70-99(Fasting)) mg/dl Calcium 8.2 L (8.6-10.3) mg/dl Magnesium 1.5 L (1.7-2.4) mg/dl Total Bilirubin 4.0 H (0.2-1.0) mg/dl AST 59 H (13-39) U/L ALT 40 (7-52) U/L Alkaline Phosphatase 130 H (34-104) U/L Ammonia 42.0 (18-72) umol/L Total Protein 6.2 (6.0-8.3) gm/dl Albumin 2.6 L (3.4-5.0) gm/dl Globulin 3.6 (2.5-4.0) gm/dl Albumin/Globulin Ratio 0.7 L (0.9-2) Lipase 55 (11-82) U/L Diagnostic Findings Chest X-Ray 07/18/24 11:51 XR chest 1V portable HISTORY: 58 years-old Male sob acute shortness of breath COMPARISON: 06/29/2024 TECHNIQUE: AP view of the chest FINDINGS: Lung volumes are normal. Lungs are clear. There is no pneumothorax or pleural effusion. Cardiac size is normal. Mediastinal contours are normal. There is no evidence for pulmonary edema. IMPRESSION: No acute cardiopulmonary findings. ACT 112: Negative or not required by law. The above report was generated using voice recognition software. It may contain grammatical, syntax or spelling errors. Electronically signed by: Alfredo Thornton M.D. 07/18/2024 1:50 PM KUB X-Ray 07/18/24 11:51 KUB HISTORY: Generalized abdominal pain. Constipation. COMPARISON: Abdomen and pelvis CT 06/29/2024. FINDINGS: The bowel gas pattern is unremarkable. There are no dilated loops of small bowel to suggest an obstruction. No renal calculi. No ureteral calculi. No pneumoperitoneum or pneumatosis. There is moderate fecal retention. IMPRESSION: 1. Nonobstructive bowel gas pattern. 2. Moderate fecal retention. ACT 112: Negative or not required by law. Electronically signed by: Huber Alvarado M.D. 07/18/2024 1:22 PM Abdomen Ultrasound 07/18/24 14:55 US abdomen ltd ascites CLINICAL HISTORY: abd distention, hx ascites COMPARISON STUDY: Abdomen and pelvis CT 06/29/2024. FINDINGS: There is a small to moderate amount of scattered ascites most pronounced within the right upper quadrant. Nodular contour to the liver consistent with cirrhosis. There is an umbilical hernia containing fluid. IMPRESSION: Small to moderate amount of ascites. ACT 112: Negative or not required by law. Electronically signed by: Huber Alvarado M.D. 07/18/2024 4:07 PM Medications Administered Discontinued Medications Magnesium Sulfate/Dextrose (Magnesium Sulfate / D5w) 1 gm in 100 mls @ 100 mls/hr IV NOW STA Stop: 07/18/24 13:53 Last Infusion: 07/18/24 14:18 Dose: Infused Documented By: Admin: 07/18/24 13:09 Dose: 100 mls/hr Documented By: SO Sodium Chloride (Nss) 500 mls @ 999 mls/hr IV .Q31M ONE Stop: 07/18/24 13:41 Last Infusion: 07/18/24 14:58 Dose: Infused Documented By: Admin: 07/18/24 14:07 Dose: 999 mls/hr Documented By: HUBERT Magnesium Hydroxide (Magnesium Hydroxide Susp 30 Ml Udc) 30 ml PO NOW ONE Stop: 07/18/24 14:38 Last Admin: 07/18/24 14:54 Dose: 30 ml Documented By: SO Potassium Chloride (Potassium Chloride Crtab 20 Meq Tabcr) 40 meq PO NOW STA Stop: 07/18/24 12:55 Last Admin: 07/18/24 13:07 Dose: 40 meq Documented By: SO Supervising Physician Co-Signing Physician Notes Pt was seen and examined by myself, Jolly Lopez MD on the day of service. Care was coordinated with Santa Arredondo PA-C. Patient is a 58-year-old male known to this service with past medical history significant for cirrhosis with recurrent ascites, presenting with abdominal tenderness. Patient states that he had been doing well after discharge but lost his insurance and so could not follow-up with his PCP for his hospital follow-up after the last discharge. States that he had a paracentesis last week. However since then he has been having increasing abdominal pain and states today he contacted radiology for another possible paracentesis but was told that his order is for every 2 weeks and so they could not squeeze him in. Notes that he was also dry heaving on the phone so the nurse advised that he present to the emergency room for further evaluation and management. Notes that he takes lactulose at home but has not been taking it as prescribed. Unsure of his last bowel movement. On exam patient is alert and oriented x 3. Abdomen is distended and tender diffusely. KUB reviewed notes constipation we will start patient on prescribed home regimen of lactulose that he has not been taking as prescribed and scheduled Dulcolax. Patient follows with gastroenterology who had previously recommended this regimen, GI consult. Hyponatremia currently stable much improved from recent baselines in the 120s. Consult in the morning to radiology for paracentesis. Otherwise as above. 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
[2024-07-18] MEDS ORDERED: GLUCAGON FOR INJ 1 MG VIAL SQ PRN (18:10)
[2024-07-18] MEDS ORDERED: GLUCOSE 10 TAB/TUBE PO PRN (18:10)
[2024-07-18] MEDS ORDERED: DEXTROSE 50% 50 ML SYRINGE IV PRN (18:10)
[2024-07-18] MEDS ORDERED: CARBOHYDRATES FOR HYPOGLYCEMIA PO PRN (18:10)
[2024-07-18] MEDS ORDERED: GLUCOSE 40% GEL 15 GM TUBE PO PRN (18:10)
[2024-07-18] MEDS: MAGNESIUM SULFATE / D5W 1 GM/100 ML BAG IV ONE (18:51)
--- OUTSIDE RECORDS SUMMARY | 2024-07-18 20:26 | External Medical Summary | Summary of Care ---
Author Name Unknown Organization [facility] Address [address] [facility] [address] Phone [phone] Care Team Providers Care Joint Maker Machine Name Role Phone Krystian Palomo MD Primary Care Provide r Reason for Visit * Reason Onset Date Comments Health Maintenance 07/11/2024 Encounter Details Date Type Department Care Team (Late st Contact Info) Description 07/11/2024 Telephone Family Medicine [address] [place] [address] Krystian Palomo MD [address] [place] [address] [place] [address] Health Maintenance Allergies Active Allergy Reactions Criticality Noted Date Comments Aspirin 01/28/2022 Other reaction(s): bloody nose Salicylates 08/08/2001 nose bleeds documented as of this encounter (statuses as of 07/11/2024) Medications Medication Sig Dispensed Refills Start Date End Date Status Multivitamin Adult Oral Tablet daily . 10/12/2021 Active Vitamin C 1000 MG Oral Tablet daily . 10/12/2021 Active Lactulose 10 GM/15ML Oral Solution (Constulose)Indicatio ns:Hepatic encephalopathy (HCC) TAKE 45ML THREE TIMES DAILY,IN THE MORNING, AT NOON, AND BEDFORE BEDTIME 4050 mL 5 11/07/2022 Active Atorvastatin Calcium 20 MG Oral Tablet (Lipitor)Indications: Hyperlipidemia with target LDL less than 100 Take 1 Tablet by mouth in the morning. 90 Tablet 1 07/11/2023 Active Albumin Human 25 % Intravenous Solution Give 50Gms after paracentesis (if more than 5L are removed). May run at 100/hr. 100 mL 11/09/2023 Active Additional Information Patient not taking.Reported on 06/20/2024 Albuminex 25 % Intravenous Solution (Albumin Human-kjda)Indication s:Cirrhosis of liver with ascites, unspecified hepatic cirrhosis [...] units albumin 100 mL 10 01/24/2024 Active Additional Information Patient not taking.Reported on 06/20/2024 Dexcom G7 Radio Message Router Device Use as directed to monitor blood sugars 1 Each 03/06/2024 Active Additional Information Patient not taking.Reported on 06/20/2024 Dexcom G7 Sensor Use as directed to monitor blood sugars. Change every 10 days. 3 Each 3 03/06/2024 Active Additional Information Patient not taking.Reported on 06/20/2024 Insulin Glargine Solostar 100 UNIT/ML Subcutaneous Solution Pen-injector (Lantus SoloStar) Inject 10 Units under the skin daily. 15 mL 3 04/19/2024 Active Pen Adams 32G X 4 MM Use as directed. Use to inject insulin once daily. 100 Each 3 04/19/2024 Active Additional Information Patient not taking.Reported on 06/20/20[address] Probiotic & Acidophilus Ex St Oral Capsule Take 1 Capsule by mouth in the morning and 1 Capsule at noon and 1 Capsule in the evening. Take with meals. Active Omeprazole 20 MG Oral Capsule Delayed Release (PriLOSEC)Indications :GERD (gastroesophageal reflux disease) Take 1 Capsule by mouth in the morning. 1 hour before the first meal of the day. 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 In the morning.. 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 At hospital discharge 22 g 1 07/05/2024 Active Potassium Chloride Mary[facility] ER 10 MEQ Oral Tablet Extended Release Take 2 Tablets by mouth in the morning and 2 Tablets before bedtime. 06/28/2024 Active Sodium Chloride 1 GM Oral Tablet Take 1 Tablet by mouth in the morning and 1 Tablet before bedtime. 06/28/2024 Active Torsemide 20 MG Oral Tablet (Demadex)Indications: decreased from 40 at hosp d/c 09.7.24 Take 1 Tablet by mouth in the morning. Active Midodrine HCl 2.5 MG Oral Tablet (Proamatine)Indicatio ns:at hosp d/c 09.7.24 Take 2 Tablets by mouth in the morning and 2 Tablets at noon and 2 Tablets in the evening. Active Urea 15 GM Oral Packet (Ure-Na)Indications:a t hosp discharge 9.7.24 Take 15 g by mouth in the morning and 15 g before bedtime. 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 07/05/2023 Hepatic encephalopathy 03/28/2022 Overview: admitted [facility], ammonia 110 Aortic stenosis, moderate 01/21/2022 [...] as of this encounter (statuses as of 07/11/2024) Resolved Problems Problem Noted Date Diagnosed Date [...] as of this encounter (statuses as of 07/11/2024) Immunizations Name Administration Dates Next Due COVID-19 [...] encounter Miscellaneous Notes * Telephone Encounter - Mansi Lane LPN - 07/11/2024 9:11 AM EDT Care Gaps Comprehensive Care Outreach Last Office/Telemedicine Visit: 06/04/2024 (in office), Visit date not found (telemedicine) Next Office Visit: Visit date not found Hemoglobin AIC Results: Lab Results Component Value Date/Time HEMOGLOBIN A1C - [facility] 8.4 (H) 04/19/2024 01:24 PM HEMOGLOBIN A1C - [facility] 7.0 (H) 01/05/2024 08:22 AM HEMOGLOBIN A1C - [facility] 5.9 (H) 09/18/2023 11:41 AM HEMOGLOBIN A1C - [facility] 5.8 (H) 11/24/2020 08:53 AM HEMOGLOBIN A1C - [facility] 6.0 (H) 05/21/2020 10:26 AM HEMOGLOBIN A1C - [facility] 6.5 (H) 02/24/2011 11:30 AM BP Readings from Last 1 Encounters: 06/18/24 111/48 Reviewed Health Maintenance below: Health Maintenance Topic Date Due Zoster Vaccines (1 of 2) Never done Pneumococcal Vaccine: Pediatrics (0 to 5 Years) and At-Risk Patients (6 to 64 Years) (2 of 2 - PCV)12/24/2014 Depression Screening 05/21/2021 DTap/Tdap Vaccines (2 - Td or Tdap) 07/13/2021 Albumin/Creatinine Ratio 12/06/2023 Diabetic Foot Exam 06/21/2024 Influenza Vaccine (FLU shot) (1) 06/30/2024 COVID-19 Vaccine (4 - season) 2024 Diabetic Eye Exam 09/20/2024 HbA1c 10/19/2024 O[facility] Eye nov Care Gap Outreach Action Taken: Unable to reach documented in this encounter Plan of Treatment Upcoming Encounters Date Type Department Care Team (Latest Contact Info) Description 07/19/2024 1:45 PM EDT Imaging Radiology [place] [facility]st [facility] [place] [address] [facility] [place] [address] 07/31/2024 1:00 PM EDT Office Visit NephGirish ghosh [address] [place] [address] [address] Fernando Reina MD [address] [place] [address] 08/01/2024 9:30 AM EDT Office Visit Pharmacy, [address] [place] [address] [place] [address] 09/05/2024 2:11 PM EST Hospital Encounter OR GL, Operating Room, [facility] - 4th Floor [address] [place] [phone] Jayla Armstrong MD [address] [facility] [place] [address] 09/05/2024 2:11 PM EST - 09/05/2024 2:47 PM EST Surgery OR [facility], Operating Room, [facility] - 4th Floor [address] [place] [phone] Jayla Armstrong MD [address] [place] [address] ESOPHAGOGASTRODUODENOSCOPY (EGD), FLEXIBLE, TRANSORAL, DIAGNOSTIC 10/18/2024 10:30 AM EST Office Visit Gastroenterology , [facility] [place] [address] Ren Pineda CRNP [address] [place] [address] Scheduled Procedures Name Priority Associated Diagnoses Date/Ti ok ESOPHAGOGASTRODUODENOSCOPY ( EGD), FLEXIBLE, TRANSORAL, DIAGNOSTIC Rios's [...] - Td or Tdap) 07/13/2021 07/13/2011, 10/30/2004 Albumin/Creatinine Ratio 12/06/2023 023, 11/03/2021, 04/29/2021, Additional history exists Diabetic Foot Exam 06/21/2024 06/21/2023, 0 07/06/2022, 04/29/2021, Additional history exists COVID-19 Vaccine ( season) 2024 10/18/2021, 03/08/2021, 02/23/2021 Influenza Vaccine (FLU shot) (#1) 2024 07/30/2023, 06/30/2022, 07/30/2021, Additional history exists Diabetic Eye Exam 09/20/2024 09/20/2023, , 03/16/2021, Additional history exists HbA1c 10/19/2024 04/19/2024, 03/0 05/2024, 09/18/2023, Additional history exists GFR 07/09/2025 07/09/2024, 08/2 , 06/04/2024, Additional history exists Lipid Panel 09/18/2028 09/18/2023, [...] this encounter Medical Devices Implanted Type Area Video Manager Device Identifier Shelf Expiration Date Model / Serial / Lot Lipiodol Injection - [id number] Implanted:Qty: 1 on 08/02/2023 at [facility] [employer] [facility] 04/28/2026 [id number] 1 -2 / [id number] Syr Pf 2ml Embospheres 100-300 - [id number] Implanted:Qty: 1 on 08/02/2023 at [facility] [employer] [id number] 02/26/2026 S220GH / / [id number] Syr Pf 2ml Embospheres 100-300 - [id number] Implanted:Qty: 1 on 04/11/2024 at [facility] [employer] [id number] 12/27/2026 S220GH / / [id number] Lipiodol Injection - [id number] Implanted:Qty: 1 on 04/11/2024 at [facility] [employer] 65388-086 1 -2 documented as of this encounter Care Teams Joint Maker Machine Relationship Specialty Start Date End Date Krystian Palomo MD [address] [place] [address] [place] [address] PCP - General Family Medicine 12/22/23 documented as of this encounter
--- OUTSIDE RECORDS SUMMARY | 2024-07-18 20:26 | External Medical Summary | Summary of Care ---
Author Name Unknown Organization [facility] Address [address] [facility] [address] Phone [phone] Care Team Providers Care Hog Tender Name Role Phone Kyrstian Palomo MD Primary Care Provide r Encounter Details Date Type Department Care Team (Late st Contact Info) Description 07/09/2024 Result Scan Unspecified Department Ren Pineda CRNP [address] [place] [address] <No scans attached> Allergies Active Allergy Reactions Criticality Noted Date Comments Aspirin 01/28/2022 Other reaction(s): bloody nose Salicylates 08/08/2001 nose bleeds documented as of this encounter (statuses as of 07/10/2024) Medications Medication Sig Dispensed Refills Start Date [...] Patient not taking.Reported on 06/20/2024 Dexcom G7 Automatic Clipper And Stripper Device Use as directed to monitor blood [...] daily. 15 mL 3 04/19/2024 Active Pen [place] 32G X 4 MM Use as directed. [...] (Demadex)Indications: decreased from 40 at hosp d/c ..24 Take 1 Tablet by mouth in the morning. Active Midodrine HCl 2.5 MG Oral Tablet (Proamatine)Indicatio ns:at hosp d/c 07.06.24 Take 2 Tablets by mouth in the morning and 2 Tablets at noon and 2 Tablets in the evening. Active Urea 15 GM Oral Packet (Ure-Na)Indications:a t hosp discharge 9..24 Take 15 g by mouth in the morning and 15 g before bedtime. Active documented as of this encounter (statuses as of 07/10/2024) Active Problems Problem Noted Date Diagnosed Date [...] as of this encounter (statuses as of 07/10/2024) Resolved Problems Problem Noted Date Diagnosed Date [...] as of this encounter (statuses as of 07/10/2024) Immunizations Name Administration Dates Next Due COVID-19 [...] Department Care Team (Latest Contact Info) Description 07/15/2024 11:20 AM EDT Office Visit Family Medicine [facility] [place] [place] [phone] Krystian Palomo MD [address] [place] [address] [place] [address] 07/19/2024 1:45 PM EDT Imaging Radiology [facility]st [facility] 132 [facility] [place] [address] 07/31/2024 1:00 PM EDT Office Visit Nephrology, [facility] [address] [place] [address] Fernando Reina MD [address] [place] [address] 08/01/2024 9:30 AM EDT Office Visit Pharmacy, [address] [place] [address] [place] [address] 09/05/2024 2:11 PM EST Hospital Encounter OR GL, Operating Room, [facility] - 4th Floor [address] [place] [phone] Jayla Armstrong MD [address] [place] [address] 09/05/2024 2:11 PM EST - 09/05/2024 2:47 PM EST Surgery OR [facility], Operating Room, [facility] - 4th Floor [address] [place] [phone] Jayla Armstrong MD [address] [place] [address] ESOPHAGOGASTRODUODENOSCOPY (EGD), FLEXIBLE, TRANSORAL, DIAGNOSTIC 10/18/2024 10:30 AM EST Office Visit Gastroenterology , [facility] 132 [facility] [place] [address] Ren Pineda CRNP [address] [place] [address] Scheduled Procedures Name Priority Associated Diagnoses Date/Ti [...] 05/2024, 09/18/2023, Additional history exists GFR 06/18/2025 07/09/2024, 05/31, 06/04/2024, Additional history exists Lipid Panel 09/18/2028 [...] this encounter Medical Devices Implanted Type Area Case Maker Device Identifier Shelf Expiration Date Model / Serial / Lot Lipiodol Injection - [id number] Implanted:Qty: 1 on 08/02/2023 at [facility] [employer] 04/28/2026 04422-320 1 -2 / / [id number] Syr Pf 2ml Embospheres 100-300 - [id number] Implanted:Qty: 1 on 08/02/2023 at [facility] [employer] [id number] 02/26/2026 S220GH / / [id number] Syr Pf 2ml Embospheres 100-300 - [id number] Implanted:Qty: 1 on 04/11/2024 at [facility] [employer] [id number] 12/27/2026 S220GH / / [id number] Lipiodol Injection - [id number] Implanted:Qty: 1 on 04/11/2024 at [facility] [employer] 40710-452 1 -2 / / documented as of this encounter Procedures Procedure Name Priority Date/Time Associated Diagnosis Comments OUTSIDE LAB RESULTS 07/09/2024 RADIOLOGY SCANNED RESULT 07/09/2024 documented in this encounter Results * RADIOLOGY SCANNED RESULT (07/09/2024) 07/09/2024 [facility] * OUTSIDE LAB RESULTS (07/09/2024) 07/09/2024 [facility] documented in this encounter Care Teams Hog Tender Relationship Specialty Start Date End Date Krystian Palomo MD [address] [place] [address] [place] [address] PCP - General Family Medicine 12/22/23 documented as of this encounter
--- OUTSIDE RECORDS SUMMARY | 2024-07-18 20:26 | External Medical Summary | Summary of Care ---
Author Name Unknown Organization [facility] Address [address] [facility] [place] [address] Phone [phone] Care Team Providers Care Snack Stewardess Name Role Phone Krystian Palomo MD Primary Care Provide r Encounter Details Date Type Department Care Team (Late st Contact Info) Description 07/10/2024 Orders Only Gastroenterology, [facility] [address] [place] [address] Ren Pineda CRNP [address] [place] [address] Allergies Active Allergy Reactions Criticality Noted Date [...] Patient not taking.Reported on 06/20/2024 Dexcom G7 J2Ee Software Engineer Device Use as directed to monitor blood [...] daily. 15 mL 3 04/19/2024 Active Pen [place] 32G X 4 MM Use as directed. [...] 07/15/2024 11:20 AM EDT Office Visit Family [address] [phone] Krystian Palomo MD [address] [place] [address] [place] [address] 07/19/2024 1:45 PM EDT Imaging Radiology [facility]st [facility] 132 [facility] [place] [address] 07/31/2024 1:00 PM EDT Office Visit Nephrology, [facility] [address] [place] [address] Fernando Reina MD [address] [place] [address] 08/01/2024 9:30 AM EDT Office Visit Pharmacy, [address] [place] [address] [place] [address] 09/05/2024 2:11 PM EST Hospital Encounter OR GL, Operating Room, [facility] - 4th Floor [address] [place] [phone] Jayla Armstrong MD [address] [place] [address] 09/05/2024 2:11 PM EST - 09/05/2024 2:47 PM EST Surgery OR [facility], Operating Room, [facility] - 4th Floor [address] [place] [phone] Jayla Armstrong MD [address] [place] [address] ESOPHAGOGASTRODUODENOSCOPY (EGD), FLEXIBLE, TRANSORAL, DIAGNOSTIC 10/18/2024 10:30 AM EST Office Visit Gastroenterology , [facility] [address] [facility] [place] [address] Ren Pineda CRNP [address] [place] [address] Scheduled Procedures Name Priority Associated Diagnoses Date/Ti [...] 09/18/2023, Additional history exists GFR 06/18/2025 07/09/2024, 2 , 06/04/2024, Additional history exists Lipid Panel 09/18/2028 09/18/2023, 082 12/2022, 03/09/2022, Additional history exists Colonoscopy 01/10/2029 01/11/2024, 0806/2019, 05/21/2010 Colorectal Cancer Screening 01/10/2029 Hepatitis B [...] this encounter Medical Devices Implanted Type Area Paramedic Device Identifier Shelf Expiration Date Model / Serial / Lot Lipiodol Injection - [id number] Implanted:Qty: 1 on 08/02/2023 at [facility] [employer] 04/28/2026 43908-095 1 -2 \[id number] Syr Pf 2ml Embospheres 100-300 - [id number] Implanted:Qty: 1 on 08/02/2023 at [facility] [employer] [id number] 02/26/2026 S220GH / / [id number] Syr Pf 2ml Embospheres 100-300 - [id number] Implanted:Qty: 1 on 04/11/2024 at [facility] [employer] [id number] 12/27/2026 S220GH / / [id number] Lipiodol Injection - [id number] Implanted:Qty: 1 on 04/11/2024 at [facility] [employer] 59649-919 -2 / / documented as of this encounter Procedures Procedure Name Priority Date/Time Associated Diagnosis Comments CHEMISTRY-OUTSIDE Routine 07/09/2024 documented in this encounter Results * (ABNORMAL) CHEMISTRY-OUTSIDE (07/09/2024) Not all results display below - see scan for full detail OUTSIDE LAB (SEE SCANNED REPORT) Comment:SCAN INCLUDES: PERT ALB, BMP, PT/INR, PTT, CBCD CREATININE-OUTSID E LAB 1.10 0.6 - 1.4 MG/DL OUTSIDE LAB (SEE SCANNED REPORT) EGFR-OUTSIDE LAB 73.1 ML/MIN OUT SIDE LAB (SEE SCANNED REPORT) POTASSIUM-OUTSIDE LAB 3.5 3.5 - 5.1 MMOL/L OUTSIDE LAB (SEE SCANNED REPORT) GLUCOSE-OUTSIDE LAB 150(A) 70 - 99 MG/DL OUTSIDE LAB (SEE [...] LAB OUTSIDE LAB (SEE SCANNED REPORT) HEMOGLOBIN, G7J-MBQOTDM LAB OUTSIDE LAB (SEE SCANNED REPORT) PHOSPHORUS-OUTSID E LAB OUTSIDE LAB (SEE SCANNED REPORT) PTH-OUTSIDE LAB OUTS LESLIE LAB (SEE SCANNED REPORT) MICROALBUMIN RATIO-OUTSIDE LAB OUTSIDE LA B (SEE SCANNED REPORT) PROTEIN, UA-OUTSIDE LAB OUTSIDE LAB (SEE SCANNED REPORT) HGB 9.8(A) 14.0 - 18.0 G/DL OUTSIDE LAB (SEE SCANNED REPORT) 07/09/2024 [facility] OUTSIDE LAB (SEE SCANNED REPORT) documented in this encounter Care Teams Snack Stewardess Relationship Specialty Start Date End Date Krystian Palomo MD [address] [place] [address] [place] [address] PCP - General Family Medicine 12/22/23 documented as of this encounter
--- OUTSIDE RECORDS SUMMARY | 2024-07-18 20:26 | External Medical Summary | Summary of Care ---
Author Name Unknown Organization [facility] Address [address] [facility] [address] Phone [phone] Care Team Providers Care Sleeve Sewer Name Role Phone Krystian Palomo MD Primary Care Provide r Reason for Visit * Reason Onset Date Comments Call Back 07/11/2024 Patient requesti ng that provider call him with results from testing from [facility] Encounter Details Date Type Department Care Team (Late st Contact Info) Description 07/11/2024 Telephone Family [address] [place] [phone] Krystian Palomo MD [address] [place] [address] [place] [address] Call Back (Patient requesting that provide... Allergies Active Allergy Reactions Criticality Noted Date Comments Aspirin 01/28/2022 Other reaction(s): bloody nose Salicylates 08/08/2001 nose bleeds documented as of this encounter (statuses as of 07/17/2024) Medications Medication Sig Dispensed Refills Start Date [...] Patient not taking.Reported on 06/20/2024 Dexcom G7 Linux Admin Device Use as directed to monitor blood [...] daily. 15 mL 3 04/19/2024 Active Pen [place] 32G X 4 MM Use as directed. 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 Please assist documented in this encounter Plan of Treatment Upcoming Encounters Date Type Department Care Team (Latest Contact Info) Description 07/31/2024 1:00 PM EDT Office Visit Nephrology, [facility] [address] [facility] [place] [address] Fernando Reina MD [address] [facility] [place] [address] 08/01/2024 9:30 AM EDT Office Visit Pharmacy, [address] [place] [address] [place] [address] 09/05/2024 2:17 PM EST Hospital Encounter OR [facility], Operating Room, [facility] - 4th Floor [address] [place] [phone] Jayla Armstrong MD [address] [employer] [place] [address] 09/05/2024 2:17 PM EST - 09/05/2024 2:53 PM EST Surgery OR [facility], Operating Room, [facility] - 4th Floor [address] [place] [phone] Jayla Armstrong MD [address] [employer] [place] [address] ESOPHAGOGASTRODUODENOSCOPY (EGD), FLEXIBLE, TRANSORAL, DIAGNOSTIC 10/18/2024 10:30 AM EST Office Visit Gastroenterology , [facility] [address] [address] Ren Pineda CRNP [address] [place] [address] Scheduled Procedures Name Priority Associated Diagnoses Date/Ti me ESOPHAGOGASTRODUODENOSCOPY ( EGD), FLEXIBLE, TRANSORAL, DIAGNOSTIC Rios's esophagus 09/05/2024 2:17 PM EST COLONOSCOPY FLEXIBLE PROXIMA L DIAGNOSTIC [...] 09/18/2023, Additional history exists GFR 07/09/2025 07/09/2024, 05/31, 06/04/2024, Additional history exists Lipid [...] this encounter Medical Devices Implanted Type Area Appraiser Device Identifier Shelf Expiration Date Model / Serial / Lot Lipiodol Injection - [id number] Implanted:Qty: 1 on 08/02/2023 at [facility] [employer] 04/28/2026 01003-050 1 -2 / \[id number] Syr Pf 2ml Embospheres 100-300 - [id number] Implanted:Qty: 1 on 08/02/2023 at [facility] [employer] [id number] 02/26/2026 S220GH / / [id number] Syr Pf 2ml Embospheres 100-300 - [id number] Implanted:Qty: 1 on 04/11/2024 at [facility] [employer] [id number] 12/27/2026 S220GH / / [id number] Lipiodol Injection - [id number] Implanted:Qty: 1 on 04/11/2024 at [facility] [employer] 37608-490 1 -2 / / documented as of this encounter Care Teams Sleeve Sewer Relationship Specialty Start Date End Date Krystian Palomo MD [address] [place] [address] [place] [phone] PCP - General Family Medicine 12/22/23 documented as of this encounter
--- OUTSIDE RECORDS SUMMARY | 2024-07-18 20:27 | External Medical Summary | Summary of Care ---
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 1 Active Vitamin C 1000 MG Oral Tablet daily . 1 Active Lactulose 10 GM/15ML Oral Solution (Constulose)Indicati ons:Hepatic encephalopathy (HCC) TAKE 45ML THREE TIMES DAILY,IN THE MORNING, AT NOON, AND BEDFORE BEDTIME 4050 mL 5 3 Active Atorvastatin Calcium 20 MG Oral Tablet (Lipitor)Indications :Hyperlipidemia with target LDL less than 100 Take 1 Tablet by mouth in the morning. 90 Tablet 1 3 Active Albumin Human 25 % Intravenous Solution Give 50Gms after paracentesis (if more than 5L are removed). May run at 100/hr. 100 mL 4 Active Additional Information Patient not taking.Reported on 06/20/2024 Spironolactone 100 MG Oral Tablet (Aldactone) Take [...] units albumin 100 mL 10 4 Active Additional Information Patient not taking.Reported on 06/20/2024 Dexcom G7 Bioinformatics Programmer Device Use as directed to monitor blood sugars 1 Each 4 Active Additional Information Patient not taking.Reported on 06/20/2024 Dexcom G7 Sensor Use as directed to monitor blood sugars. Change every 10 days. 3 Each 3 4 Active Additional Information Patient not taking.Reported on 06/20/2024 Furosemide 40 MG Oral Tablet (Lasix) TAKE ONE TABLET BY MOUTH IN THE MORNING 30 Tablet 3 4 Active Insulin Glargine Solostar 100 UNIT/ML Subcutaneous Solution Pen-injector (Lantus SoloStar) Inject 10 Units under the skin daily. 15 mL 3 4 Active Pen [place] 32G X 4 MM Use as directed. Use to inject insulin once daily. 100 Each 3 4 Active Additional Information Patient not taking.Reported on 06/20/[address]ophilus Ex St Oral Capsule Take 1 Capsule by mouth in the morning and 1 Capsule at noon and 1 Capsule in the evening. Take with meals. Active Mupirocin 2 % External Ointment (Bactroban) Apply topically to affected area 3 times a day. At hospital discharge 22 g 1 4 Active Omeprazole 20 MG Oral Capsule Delayed Release (PriLOSEC)Indication s:GERD (gastroesophageal reflux disease) Take 1 Capsule by mouth in the morning. 1 hour before the first meal of the day. 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 In the morning.. 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) TAKE ONE TABLET BY MOUTH EVERY MORNING AND ONE TABLET AT BEDTIME 60 Tablet 12 4 Active rifAXIMin 550 MG Oral Tablet (Xifaxan) TAKE ONE TABLET BY MOUTH EVERY MORNING AND ONE TABLET AT BEDTIME 60 Tablet 12 4 07/04/20 24 Discontinu ed(Refill) documented as of this encounter (statuses as of 07/04/2024) Active Problems Problem Noted Date Diagnosed Date [...] as of this encounter (statuses as of 07/04/2024) Resolved Problems Problem Noted Date Diagnosed Date [...] as of this encounter (statuses as of 07/04/2024) Immunizations Name Administration Dates Next Due COVID-19 [...] Miscellaneous Notes * Telephone Encounter - Ren Louis CRNP - 07/04/2024 9:17 AM EDTSigned Prescriptions: Disp Refills rifAXIMin 550 MG Oral Tablet (Xifaxan) 60 Tab*12 Sig: TAKE ONE TABLET BY MOUTH EVERY MORNING AND ONE TABLET AT BEDTIME Authorizing Provider: REN LOUIS * Telephone Encounter - Ana Root LPN - 07/04/2024 8:09 AM EDTPending Prescriptions: Disp Refills rifAXIMin 550 MG Oral Tablet (Xifaxan) 60 Tab*12 Sig: TAKE ONE TABLET BY MOUTH EVERY MORNING AND ONE TABLET AT BEDTIME documented in this encounter Plan of Treatment Upcoming Encounters Date Type Department Care Team (Latest Contact Info) Description 07/08/2024 11:45 AM EDT [facility] [address] [place] [phone] Gw, [facility] Time Radiology 132 [place] [address] 07/12/2024 11:00 AM EDT Office Visit Pharmacy, [address] [place] [address] [place] [address] 07/15/2024 11:20 AM EDT Office Visit Family Medicine [address] [place] [phone] Krystian Palomo MD [address] [place] [address] [place] [address] 07/19/2024 1:45 PM EDT Imaging Radiology [facility] 1st [facility] 132 [facility] [place] [address] 07/31/2024 1:00 PM EDT Office Visit Nephrology, [facility] [address] [place] [address] Fernando Reina MD [address] [place] [address] 09/05/2024 2:11 PM EST Hospital Encounter OR [facility], Operating Room, [facility] - 4th Floor [address] [place] [phone] Jayla Armstrong MD [address] [place] [address] 09/05/2024 2:11 PM EST - 09/05/2024 2:47 PM EST Surgery OR [facility], Operating Room, [facility] - 4th Floor [address] [place] [phone] Jayla Armstrong MD [address] [place] [address] ESOPHAGOGASTRODUODENOSCOPY (EGD), FLEXIBLE, TRANSORAL, DIAGNOSTIC 10/18/2024 10:30 AM EST Office Visit Gastroenterology , [facility] [address] [facility] [place] [address] Ren Louis CRNP 132 [facility] [place] [address] Scheduled Procedures Name Priority Associated Diagnoses Date/Ti [...] this encounter Medical Devices Implanted Type Area First Aid Nurse Device Identifier Shelf Expiration Date Model / Serial / Lot Lipiodol Injection - [id number] Implanted:Qty: 1 on 08/02/2023 at [facility] [employer] 04/28/2026 [id number] 1 -2 [id number] Syr Pf 2ml Embospheres 100-300 - [id number] Implanted:Qty: 1 on 08/02/2023 at [facility] [employer] [id number] 02/26/2026 S220GH / / [id number] Syr Pf 2ml Embospheres 100-300 - [id number] Implanted:Qty: 1 on 04/11/2024 at [facility] [employer] [id number] 12/27/2026 S220GH / / [id number] Lipiodol Injection - [id number] Implanted:Qty: 1 on 04/11/2024 at [facility] [employer] [id number] -2 documented as of this encounter Visit Diagnoses Diagnosis 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
--- OUTSIDE RECORDS SUMMARY | 2024-07-18 20:27 | External Medical Summary | Summary of Care ---
Author Name Unknown Organization [facility] Address [address] [facility] [place] [address] Phone [phone] Care Team Providers Care Bread Molder Name Role Phone Krystian Palomo MD Primary Care Provide r Encounter Details Date Type Department Care Team (Late st Contact Info) Description 07/01/2024 Orders Only PATIENT PORTAL DO NOT DELETE THIS DEPT USED BY [place] [id number] Allergies Active Allergy Reactions Criticality Noted Date Comments Aspirin 01/28/2022 Other reaction(s): bloody nose Salicylates 08/08/2001 nose bleeds documented as of this encounter (statuses as of 07/01/2024) Medications Medication Sig Dispensed Refills Start Date [...] Patient not taking.Reported on 06/20/2024 Dexcom G7 Pressure Tester Device Use as directed to monitor blood [...] daily. 15 mL 3 04/19/2024 Active Pen [place] 32G X 4 MM Use as directed. [...] as of this encounter (statuses as of 07/01/2024) Active Problems Problem Noted Date Diagnosed Date [...] as of this encounter (statuses as of 07/01/2024) Resolved Problems Problem Noted Date Diagnosed Date [...] as of this encounter (statuses as of 07/01/2024) Immunizations Name Administration Dates Next Due COVID-19 [...] 12:00 PM EDT Office Visit Family Medicine [address] [place] [phone] Krystian Palomo MD [address] [place] [address] [place] [address] 07/08/2024 11:45 AM EDT Imaging [facility] 2nd Floor Cardiology, [place] [address] [place] [phone] Gw, Excess Time Radiology 132 [place] [address] 07/12/2024 11:00 AM EDT Office Visit Pharmacy, [address] [place] [address] [place] [address] 07/19/2024 1:45 PM EDT Imaging Radiology [facility] 1st [facility] [address] [place] [address] 07/31/2024 1:00 PM EDT Office Visit Nephrology, [facility] [address] [place] [address] Fernando Reina MD 200 [facility] [place] [address] 09/05/2024 2:11 PM EST Hospital Encounter OR [facility], Operating Room, [facility] - 4th Floor [address] [place] [place] [phone] Jayla Armstrong MD [address] [place] [address] 09/05/2024 2:11 PM EST - 09/05/2024 2:47 PM EST Surgery OR [facility], Operating Room, [facility] - 4th Floor [address] [place] [phone] Jayla Armstrong MD [address] [employer] [facility] [address] ESOPHAGOGASTRODUODENOSCOPY (EGD), FLEXIBLE, TRANSORAL, DIAGNOSTIC 10/18/2024 10:30 AM EST Office Visit Gastroenterology , [facility] [address] [place] [address] Ren Pineda CRNP [address] [place] [address] Scheduled Procedures Name Priority Associated Diagnoses Date/Ti [...] this encounter Medical Devices Implanted Type Area Scientific Diver Device Identifier Shelf Expiration Date Model / Serial / Lot Lipiodol Injection - [id number] Implanted:Qty: 1 on 08/02/2023 at [facility] [employer] 04/28/2026 [id number] 1 -2 / [id number] Syr Pf 2ml Embospheres 100-300 - [id number] Implanted:Qty: 1 on 08/02/2023 at [facility] [employer] [id number] 02/26/2026 S220GH / / [id number] Syr Pf 2ml Embospheres 100-300 - [id number] Implanted:Qty: 1 on 04/11/2024 at [facility] [employer] [id number] 12/27/2026 S220GH / / [id number] Lipiodol Injection - [id number] Implanted:Qty: 1 on 04/11/2024 at [facility] [employer] 25237-280 1 -2 / / documented as of this encounter Care Teams Bread Molder Relationship Specialty Start Date End Date Krystian Palomo MD [address] [place] [address] [place] [phone] PCP - General Family Medicine 12/22/23 documented as of this encounter
--- OUTSIDE RECORDS SUMMARY | 2024-07-18 20:27 | External Medical Summary | Summary of Care ---
Author Name Unknown Organization [facility] Address [address] [facility] [place] [address] Phone [phone] Care Team Providers Care Payroll Consultant Name Role Phone Krystian Palomo MD Primary Care Provide r Reason for Visit * Reason Onset Date Comments Medication Refill 07/04/2024 Encounter Details Date Type Department Care Team (Late st Contact Info) Description 07/04/2024 Refill Gastroenterology, [facility] 132 [facility] [place] [address] Stanford Mays MD [address] [place] [address] [place] [address] Hyperlipidemia with target LDL less than 100 Allergies Active Allergy Reactions Criticality Noted Date [...] AT BEDTIME 60 Tablet 12 11/24/2023 Active Spironolactone 100 MG Oral Tablet (Aldactone) [...] Patient not taking.Reported on 06/20/2024 Dexcom G7 Truck Body Builder Device Use as directed to monitor blood [...] daily. 15 mL 3 04/19/2024 Active Pen [place] 32G X 4 MM Use as directed. [...] hospital discharge 22 g 1 06/03/2024 Active Omeprazole 20 MG Oral Capsule Delayed Release (PriLOSEC)Indication s:GERD (gastroesophageal reflux disease) Take 1 Capsule by mouth in the morning. 1 hour before the first meal of the day. 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 In the morning.. 90 Tablet 1 07/04/2024 Active Tamsulosin HCl 0.4 MG Oral Capsule (Flomax)Indications: Urinary retention TAKE ONE CAPSULE BY MOUTH EVERY DAY 90 Capsule 1 07/04/2024 Active documented as of this encounter (statuses as of 07/04/2024) Active Problems Problem Noted Date Diagnosed Date BPH without obstruction/lower urinary tract symp toms 12/22/2023 BMI 36.0-36.9,adult 10/24/2023 Overview: 266 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 07/05/2023 Hepatic encephalopathy 03/28/2022 Overview: admitted [facility], ammonia 110 Aortic stenosis, moderate 01/21/2022 Thrombocytopenia [...] encounter Miscellaneous Notes * Telephone Encounter - Ana Root LPN - 07/04/2024 8:06 AM EDTRefused Prescriptions: Disp Refills Atorvastatin Calcium 20 MG Oral Tablet (Li*90 Tab*1 Sig: Take 1Tablet by mouth in the morning.Refused By: Sagar ROOT for Refusal: Managed by another physi madai documented in this encounter Plan of Treatment Upcoming Encounters Date Type Department Care Team (Latest Contact Info) Description 07/08/2024 11:45 AM EDT Imaging [facility] 2nd Floor Cardiology, [place] [address] [place] [phone] Gw, Excess Time Radiology 132 [place] [address] 07/12/2024 11:00 AM EDT Office Visit Pharmacy, [address] [place] [address] [place] [address] 07/15/2024 11:20 AM EDT Office Visit Family Medicine [address] [place] [phone] Krystian Palomo MD [address] [place] [address] [place] [address] 07/19/2024 1:45 PM EDT Imaging Radiology [facility] 1st Floor, [place] [address] [place] [address] 07/31/2024 1:00 PM EDT Office Visit Nephrology, [facility] [address] [place] [address] Fernando Reina MD [address] [place] [address] 09/05/2024 2:11 PM EST Hospital Encounter OR [place], Operating Room, [facility] - 4th Floor [address] [place] [phone] Jayla Armstrong MD 310 [facility] [place] [address] 09/05/2024 2:11 PM EST - 09/05/2024 2:47 PM EST Surgery OR [place], Operating Room, [facility] - 4th Floor [address] [place] [phone] Jayla Armstrong MD 310 [facility] [place] [address] ESOPHAGOGASTRODUODENOSCOPY (EGD), FLEXIBLE, TRANSORAL, DIAGNOSTIC 10/18/2024 10:30 AM EST Office Visit Gastroenterology , [facility] [address] [place] [address] Ren Pineda CRNP [address] [place] [address] Scheduled Procedures Name Priority Associated Diagnoses Date/Ti [...] 04/29/2021, Additional history exists COVID-19 Vaccine ( - season) 2024 10/18/2021, 03/08/2021, 02/23/2021 Influenza Vaccine [...] this encounter Medical Devices Implanted Type Area Boom Worker Device Identifier Shelf Expiration Date Model / Serial / Lot Lipiodol Injection - [id number] Implanted:Qty: 1 on 08/02/2023 at [facility] [employer] 04/28/2026 [id number] 1 [id number] Syr Pf 2ml Embospheres 100-300 - [id number] Implanted:Qty: 1 on 08/02/2023 at [facility] [employer] [id number] 02/26/2026 S220GH / / [id number] Syr Pf 2ml Embospheres 100-300 - [id number] Implanted:Qty: 1 on 04/11/2024 at [facility] [employer] [id number] 12/27/2026 S220GH / / [id number] Lipiodol Injection - [id number] Implanted:Qty: 1 on 04/11/2024 at [facility] K[place]ER LAU [address]-467 1 -2 documented as of this encounter Visit Diagnoses Diagnosis Hyperlipidemia with target LDL less than 100 Other and unspecified hyperlipidemia Rios's esophagus documented in this encounter Care Teams Payroll Consultant Relationship Specialty Start Date End Date Krystian Palomo MD [address] [place] [address] [place] [address] PCP - General Family Medicine 12/22/23 documented as of this encounter
--- OUTSIDE RECORDS SUMMARY | 2024-07-18 20:27 | External Medical Summary | Summary of Care ---
Author Name Unknown Organization [facility] Address [address] [facility] [place] [address] Phone [phone] Care Team Providers Care President And Cmo Name Role Phone Krystian Palomo MD Primary Care Provide r Reason for Visit * Reason Onset Date Comments Hospital Follow-Up 07/02/2024 [facility] for [facility] Encounter Details Date Type Department Care Team (Late st Contact Info) Description 07/02/2024 Telephone [address] [place] [address] Analia Maldonado RN Hospital Follow-Up ([facility] for [facility]) Allergies Active Allergy Reactions Criticality Noted Date Comments Aspirin 01/28/2022 Other reaction(s): bloody nose Salicylates 08/08/2001 nose bleeds documented as of this encounter (statuses as of 07/03/2024) Medications Medication Sig Dispensed Refills Start Date [...] Patient not taking.Reported on 06/20/2024 Dexcom G7 Cleaning Porter Device Use as directed to monitor blood [...] daily. 15 mL 3 04/19/2024 Active Pen [place] 32G X 4 MM Use as directed. [...] as of this encounter (statuses as of 07/03/2024) Active Problems Problem Noted Date Diagnosed Date BPH without obstruction/lower urinary tract symp toms 12/22/2023 BMI 36.0-36.9,adult 10/24/2023 Overview: 266 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 07/05/2023 Hepatic encephalopathy 03/28/2022 Overview: admitted [facility], ammonia 110 Aortic stenosis, moderate 01/21/2022 Thrombocytopenia [...] as of this encounter (statuses as of 07/03/2024) Resolved Problems Problem Noted Date Diagnosed Date Resolved Date Idiopathic gout 04/29/2016 10/05/2017 Obesity, Class II, BMI 35-39 .9, isolated (see actual BMI) 01/25/2010 09/01/2011 Overview: Per Obesity Taxonomy Metabolic syndrome 11/04/2009 04/11/201 4 Other abnormal glucose 11/04/200902/24 Overview: glucose [...] as of this encounter (statuses as of 07/03/2024) Immunizations Name Administration Dates Next Due COVID-19 [...] encounter Miscellaneous Notes * Telephone Encounter - Analia Maldonado RN - 07/03/2024 4:21 PM EDT Transitions of Care Note [facility] call not indicated due to patient currently admitted. documented in this encounter Plan of Treatment Upcoming Encounters Date Type Department Care Team (Latest Contact Info) Description 07/05/2024 12:00 PM EDT Office Visit Family Medicine [address] [place] [phone] Krystian Palomo MD [address] [place] [address] [place] [address] 07/08/2024 11:[address] [facility] 2nd Floor Cardiology, [address] [phone] Gw, Excess Time Radiology 132 [place] [address] 07/12/2024 11:00 AM EDT Office Visit Pharmacy, [address] [place] [address] [place] [address] 07/19/2024 1:45 PM EDT Imaging Radiology [facility] 1st [facility] [address] [place] [address] 07/31/2024 1:00 PM EDT Office Visit Nephrology, [facility] [address] [place] [address] Fernando Reina MD [address] [place] [address] 09/05/2024 2:11 PM EST Hospital Encounter OR [facility], Operating Room, [facility] - 4th Floor [address] [place] [phone] Jayla Armstrong MD [address] [place] [address] 09/05/2024 2:11 PM EST - 09/05/2024 2:47 PM EST Surgery OR [facility], Operating Room, [facility] - 4th Floor [address] [place] [phone] Jayla Armstrong MD [address] [place] [address] ESOPHAGOGASTRODUODENOSCOPY (EGD), FLEXIBLE, TRANSORAL, DIAGNOSTIC 10/18/2024 10:30 AM EST Office Visit Gastroenterology , [facility] [address] [place] [address] Ren Pineda CRNP [address] [place] [address] Scheduled Procedures Name Priority Associated Diagnoses Date/Ti [...] this encounter Medical Devices Implanted Type Area Reconnaissance Crewmember Device Identifier Shelf Expiration Date Model / Serial / Lot Lipiodol Injection - [id number] Implanted:Qty: 1 on 08/02/2023 at [facility] [employer] 04/28/2026 [id number] -2 \[id number] Syr Pf 2ml Embospheres 100-300 - [id number] Implanted:Qty: 1 on 08/02/2023 at [facility] [employer] [id number] 02/26/2026 S220GH / / [id number] Syr Pf 2ml Embospheres 100-300 - [id number] Implanted:Qty: 1 on 04/11/2024 at [facility] [employer] [id number] 12/27/2026 S220GH / / [id number] Lipiodol Injection - [id number] Implanted:Qty: 1 on 04/11/2024 at [facility] [employer] [id number] 1 -2 / / documented as of this encounter Care Teams President And Cmo Relationship Specialty Start Date End Date Krystian Palomo MD [address] [place] [address] [place] [phone] PCP - General Family Medicine 12/22/23 documented as of this encounter
--- OUTSIDE RECORDS SUMMARY | 2024-07-18 20:27 | External Medical Summary | Summary of Care ---
Author Name Unknown Organization [facility] Address [address] [facility] [place] [address] Phone [phone] Care Team Providers Care Customer Accounts Advisor Name Role Phone Krystian Palomo MD Primary Care Provide r Reason for Visit * Reason Onset Date Comments Hospital Follow-Up 07/08/2024 Noreen for [facility] first attempt Encounter Details Date Type Department Care Team (Late st Contact Info) Description 07/08/2024 Telephone Ancillary [address] [place] [address] Analia Mladonado RN Hospital Follow-Up (Noreen for [facility] first att... Allergies Active Allergy Reactions Criticality Noted Date Comments Aspirin 01/28/2022 Other reaction(s): bloody nose Salicylates 08/08/2001 nose bleeds documented as of this encounter (statuses as of 07/09/2024) Medications Medication Sig Dispensed Refills Start Date [...] 06/20/2024 Albuminex 25 % Intravenous Solution (Albumin Human-kjda)Indicatio [...] Patient not taking.Reported on 06/20/2024 Dexcom G7 Tape Sewer Device Use as directed to monitor blood [...] daily. 15 mL 3 4 Active Pen [place] 32G X 4 MM Use as directed. [...] AT BEDTIME 60 Tablet 12 4 Active Mupirocin 2 % External Ointment (Bactroban) Apply topically to affected area 3 times a day. At hospital discharge 22 g 1 4 Active Potassium Chloride [facility] 10 MEQ Oral Tablet Extended Release Take 2 Tablets by mouth in the morning and 2 Tablets before bedtime. 4 Active Sodium Chloride 1 GM Oral Tablet Take 1 Tablet by mouth in the morning and 1 Tablet before bedtime. 4 Active Torsemide 20 MG Oral Tablet (Demadex)Indications :decreased from 40 at hosp d/c 09.7.24 Take 1 Tablet by mouth in the morning. Active Midodrine HCl 2.5 MG Oral Tablet (Proamatine)Indicati ons:at hosp d/c 09..24 Take 2 Tablets by mouth in the morning and 2 Tablets at noon and 2 Tablets in the evening. Active Urea 15 GM Oral Packet (Ure-Na)Indications: at hosp discharge 9.7.24 Take 15 g by mouth in the morning and 15 g before bedtime. Active Spironolactone 100 MG Oral Tablet (Aldactone) Take 1 Tablet by mouth in the morning. 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 07/05/2023 Hepatic encephalopathy 03/28/2022 Overview: admitted [facility], ammonia 110 Aortic stenosis, moderate 01/21/2022 Thrombocytopenia [...] as of this encounter (statuses as of 07/09/2024) Resolved Problems Problem Noted Date Diagnosed Date [...] as of this encounter (statuses as of 07/09/2024) Immunizations Name Administration Dates Next Due COVID-19 [...] Telephone Encounter - Analia Maldonado RN - 07/09/2024 3:50 PM EDT Transitions of Care Note Reason for Referral:Recent Admission Phone visit for follow up: noreen Admitted to: [facility], Date: 06.30.24 Discharged to: home, Date: 07.06.24 Diagnosis driving hospitalization: (1) Orthostatic hypotension: (2) Hyponatremia: Per Hospital follow up : Discussed with neprhology on day of discharge: Advised discharge with Urea 15mg BID, sodium tab 1g BID, torsemide 20mg daily and per Nephrology 1500ml Fluid restriction most important factor for his hyponatremia. Please encourage compliance. Close Nephrology and PCP follow up after discharge. Source/Contact: Patient SUBJECTIVE Consent: Verbal consent for review of hospital discharge: Yes REVIEW OF SYSTEMS Patient/Other Reports: Current patient/caregiver problems or concerns: patient states he had parencentesis done today and 5 qts removed, "I feel wonderful now" CV: Denies problems Pulmonary: Denies problems Chills/Sweats/Fever:Denies chills/sweats Denies fever Appetite:Denies problems such as nausea, vomiting, burning, decreased appetite Current diet: reg 1500fluid restrictions Bowel: trying to keep it at 3-4 daily Bladder: denies problems Wound (If applicable): N/A Pain:Denies Sleep:Denies problems FUNCTIONAL STATUS: ADL'S: Needs Assistance With:Dressing IADL'S: Needs Assistance With:Grocery Shopping, Cooking food, Routine Housework, and Attending to safety Cognitive and Mental Health: denies problems, alert and oriented x 3, and able to communicate, understand instructions, process information. MEDICATION RECONCILIATION Medications: Reports all medications taken as prescribed. "Conintue torsemide 20 qAM Continue Salt tab 1 gm bid. Most important he needs to limit fluid to 1500 ml per day--this has been a challenge even as inpt and impossible as outpt. unless this is fixed nothing else matters kcl 20 bid. Urea 15 gm bid if he can tolerate. Rx for nausea Given Cirrhosis--125--130 might be the best we can achieve. na today 128" OBJECTIVE ASSESSMENT Medication Risk Assessment: No risks identified Did patient fail outpatient treatment? No Discharge instructions available for review? Yes PLAN Symptom Monitoring Interventions:Member/caregiver education - signs and symptoms to contact PrimaryCare (DO NOT DELETE-Three bob symptoms patient is to report to PCP) 1. sob 2. Chest pain 3. Dizziness / lightheaded Wood Flooring SpecialistNumerical Control Tool Programmer of Care interventions/Action Plan: 5 - 7 day follow-up with PCP in place - Date: 07.15.24 Educated on role of NOREEN completed with patient/caregiver. Educated patient/caregiver on patient right to have input on NOREEN plan of care. Verification of Home Health/DME if indicated: NO Identified Care Gaps: Yes Care Gaps closed this call: Transition of Care follow-up communication Re-evaluation of Plan of Care and progress towards goals achievement: Patient education this visit: Verbal, patient taking meds as directed still trying to control his BM daily, 1500ml fluid restriction. Plan to follow-up as previously scheduled, instructed to call Primary Care Provider with change in symptoms or as needed before next follow-up, verbalizes understanding and agrees with plan. Analia Maldonado RN * Telephone Encounter - Analia Maldonado RN - 07/08/2024 12:58 PM EDT Transitions of Care Note Reason for Referral:Recent Admission Phone visit for follow up: noreen Admitted to: [facility], Date: 06.30.24 Discharged to: home, Date: 07.06.24 Diagnosis driving hospitalization: (1) Orthostatic hypotension: (2) Hyponatremia: Per Hospital follow up : "Conintue torsemide 20 qAM Continue Salt tab 1 gm bid. Most important he needs to limit fluid to 1500 ml per day--this has been a challenge even as inpt and impossible as outpt. unless this is fixed nothing else matters kcl 20 bid. Urea 15 gm bid if he can tolerate. Rx for nausea Given Cirrhosis--125--130 might be the best we can achieve. na today 128" Discussed with neprhology on day of discharge: Advised discharge with Urea 15mg BID, sodium tab 1g BID, torsemide 20mg daily and per Nephrology 1500ml Fluid restriction most important factor for his hyponatremia. Please encourage compliance. Close Nephrology and PCP follow up after discharge. Attempted Phone Call First Attempt Call Outcome Unable to Leave Message VM is full will try later Analia Maldonado, RN documented in this encounter Plan of Treatment Upcoming Encounters Date Type Department Care Team (Latest Contact Info) Description 07/15/2024 11:20 AM EDT Office Visit Family Medicine [facility] [place] [place] [address] Krystian Palomo MD [address] [place] [address] [place] [address] 07/19/2024 1:45 PM EDT Imaging Radiology [facility]st [facility] [address] [facility] [address] 07/31/2024 1:00 PM EDT Office Visit Nephrology, Girish Mariee [address] [facility] [place] [address] Fernando Reina MD [address] [place] [address] 09/05/2024 2:11 PM EST Hospital Encounter [facility], Operating Room, [facility] - 4th Floor [address] [place] [phone] Jayla Armstrong MD [address] [place] [address] 09/05/2024 2:11 PM EST - 09/05/2024 2:47 PM EST Surgery [facility], Operating Room, [facility] - 4th Floor [address] [place] [phone] Jayla Armstrong MD [address] [place] [address] ESOPHAGOGASTRODUODENOSCOPY (EGD), FLEXIBLE, TRANSORAL, DIAGNOSTIC 10/18/2024 10:30 AM EST Office Visit Gastroenterology , [facility] [address] [place] [address] Ren Pineda CRNP [address] [place] [address] Scheduled Procedures Name Priority Associated Diagnoses Date/Ti [...] this encounter Medical Devices Implanted Type Area Inspector Timers Device Identifier Shelf Expiration Date Model / Serial / Lot Lipiodol Injection - [id number] Implanted:Qty: 1 on 08/02/2023 at [facility] [employer] 04/28/2026 [id number] Syr Pf 2ml Embospheres 100-300 - [id number] Implanted:Qty: 1 on 08/02/2023 at [facility] [email or web address] [id number] 02/26/2026 S220GH / / [id number] Syr Pf 2ml Embospheres 100-300 - [id number] Implanted:Qty: 1 on 04/11/2024 at [facility] [employer] [id number] 12/27/2026 S220GH / / [id number] Lipiodol Injection - [id number] Implanted:Qty: 1 on 04/11/2024 at [facility] [employer] [id number] -[id number] documented as of this encounter Care Teams Customer Accounts Advisor Relationship Specialty Start Date End Date Krystian Palomo MD [address] [place] [address] [place] [phone] PCP - General Family Medicine 12/22/23 documented as of this encounter
--- OUTSIDE RECORDS SUMMARY | 2024-07-18 20:27 | External Medical Summary | Summary of Care ---
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 10/12/2021 Active Vitamin C 1000 MG Oral Tablet daily . 10/12/2021 Active Lactulose 10 GM/15ML Oral Solution (Constulose)Indicat ions:Hepatic encephalopathy (HCC) TAKE 45ML THREE TIMES DAILY,IN THE MORNING, AT NOON, AND BEDFORE BEDTIME 4050 mL 5 11/07/2022 Active Atorvastatin Calcium 20 MG Oral Tablet (Lipitor)Indication [...] Active Albuminex 25 % Intravenous Solution (Albumin Human-kjda)Indicati [...] Patient not taking.Reported on 06/20/2024 Dexcom G7 Board Certified Orthodontist Device Use as directed to monitor blood [...] daily. 15 mL 3 04/19/2024 Active Pen [place] 32G X 4 MM Use as directed. 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 In the morning.. 90 Tablet 1 07/04/2024 Active Tamsulosin HCl 0.4 MG Oral Capsule (Flomax)Indications :Urinary retention TAKE ONE CAPSULE BY MOUTH EVERY DAY 90 Capsule 1 07/04/2024 Active Omeprazole 20 MG Oral Capsule Delayed Release (PriLOSEC)Indicatio ns:GERD (gastroesophageal reflux disease) Take 1 Capsule by mouth in the morning. 1 hour before the first meal of the day. 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 TAKE ONE TABLET BY MOUTH IN THE MORNING 90 Tablet 1 01/24/2024 07/04/20 24 Discontinu ed(Refill) Tamsulosin HCl 0.4 MG Oral Capsule (Flomax)Indications :Urinary retention TAKE ONE CAPSULE BY MOUTH EVERY DAY 90 Capsule 3 06/10/2024 07/04/20 24 Discontinu ed(Refill) documented as of this encounter (statuses as of 07/04/2024) Active Problems Problem Noted Date Diagnosed Date BPH without obstruction/lower urinary tract symp toms 12/22/2023 BMI 36.0-36.9,adult 10/24/2023 Overview: 266 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 1 hour before the first meal of the day.Authorizing Provider: Umu COLLIER User: JOSLYN SHANE Allopurinol 300 MG Oral Tablet (Zyloprim) 90 Tab*1 Sig: Take 1 Tablet by mouth in the morning. In the morning..Authorizing Provider: Umu ANGELES User: JOSLYN SHANE Tamsulosin HCl 0.4 MG Oral Capsule (Flomax)90 Cap*1 Sig: TAKE ONE CAPSULE BY MOUTH EVERY DAYAuthorizing Provider: Umu COLLIER User: JOSLYN SHANE documented in this encounter Plan of Treatment Upcoming Encounters Date Type Department Care Team (Latest Contact Info) Description 07/08/2024 11:45 AM EDT Imaging [facility] 2nd Floor Cardiology, [place] [address] [place] [phone] Gw, Excess Time Radiology [address] [place] [address] 07/12/2024 11:00 AM EDT Office Visit Pharmacy, [address] [place] [address] [place] [address] 07/15/2024 11:20 AM EDT Office Visit Family Medicine [address] [place] [address] Krystian Collier MD [address] [place] [address] [place] [address] 07/19/2024 1:45 PM EDT Imaging Radiology [facility] 1st [facility] [address] [facility] [place] [address] 07/31/2024 1:00 PM EDT Office Visit Nephrology, Girish Mariee [address] [place] [address] Fernando Reina MD [address] [place] [address] 09/05/2024 2:11 PM EST Hospital Encounter OR [facility], Operating Room, [facility] - 4th Floor [address] [place] [address] Jayla Armstrong MD [address] [place] [address] 09/05/2024 2:11 PM EST - 09/05/2024 2:47 PM EST Surgery OR [facility], Operating Room, [facility] Floor [address] [place] [phone] Jayla Armstrong MD [address] [place] [address] ESOPHAGOGASTRODUODENOSCOPY (EGD), FLEXIBLE, TRANSORAL, DIAGNOSTIC 10/18/2024 10:30 AM EST Office Visit Gastroenterology , [facility] [address] [facility] [place] [address] Ren Pineda CRNP [address] [place] [address] Scheduled Procedures Name Priority Associated Diagnoses Date/Ti or ESOPHAGOGASTRODUODENOSCOPY ( EGD), FLEXIBLE, TRANSORAL, DIAGNOSTIC Rios's [...] 07/06/2022, 04/29/2021, Additional history exists COVID-19 Vaccine (2022- season) 2024 10/18/2021, 03/08/2021, 02/23/2021 Influenza Vaccine [...] this encounter Medical Devices Implanted Type Area Mens Locker Room Attendant Device Identifier Shelf Expiration Date Model / Serial / Lot Lipiodol Injection - [id number] Implanted:Qty: 1 on 08/02/2023 at [facility] [employer] 04/28/2026 [id number] Syr Pf 2ml Embospheres 100-300 - [id number] Implanted:Qty: 1 on 08/02/2023 at [facility] [employer] [id number] 02/26/2026 S220GH / / [id number] Syr Pf 2ml Embospheres 100-300 - [id number] Implanted:Qty: 1 on 04/11/2024 at [facility] [employer] [id number] 12/27/2026 S220GH / / [id number] Lipiodol Injection - [id number] Implanted:Qty: 1 on 04/11/2024 at [facility] [id number] documented as of this encounter Visit Diagnoses Diagnosis GERD (gastroesophageal reflux disease) Esophageal reflux 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
--- OUTSIDE RECORDS SUMMARY | 2024-07-18 20:27 | External Medical Summary | Summary of Care ---
Author Name Unknown Organization [facility] [address] [facility] [facility] [address] Phone [phone] Care Team Providers Care Jboss Developer Name Role Phone Krystian Palomo MD Primary Care Provide r Reason for Visit * Reason Onset Date Comments Medication Refill 07/04/2024 Encounter Details Date Type Department Care Team (Late st Contact Info) Description 07/04/2024 Refill Family Medicine [address] [phone] Alesia Car MD [address] [place] [address] [place] [address] Allergies Active Allergy Reactions Criticality Noted Date Comments Aspirin 01/28/2022 Other reaction(s): bloody nose Salicylates 08/08/2001 nose bleeds documented as of this encounter (statuses as of 07/05/2024) Medications Medication Sig Dispensed Refills Start Date [...] Patient not taking.Reported on 06/20/2024 Dexcom G7 Medical Policy Specialist Device Use as directed to monitor [...] daily. 15 mL 3 4 Active Pen [place] 32G X 4 MM Use as directed. [...] hospital discharge 22 g 1 4 Active Mupirocin 2 % External Ointment (Bactroban) Apply topically to affected area 3 times a day. 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 At hospital discharge Authorizing Provider: KRYSTIAN PALOMO * Telephone Encounter - Daniella Paez CMA - 07/05/2024 7:23 AM EDTPending Prescriptions: Disp Refills Mupirocin 2 % External Ointment (Bactroban)22 g 1 Sig: Apply topically to affected area 3 times a day. At hospital discharge * Telephone Encounter - Daniella Paez CMA - 07/05/2024 7:22 AM EDT Pending Prescriptions: Disp Refills Mupirocin 2 % External Ointment (Bactroba*22 g 1 Sig: Apply topically to affected area 3 times a day. At hospital discharge Last Visit: 06/04/2024 (in office), Visit date not found (telemedicine) Next Visit: 07/15/2024 Last date the medication was ordered: 06/03/2024 Patient Active Problem List Diagnosis Family history [...] (HCC) BPH without obstruction/lower urinary tract symptoms Labs: Lab Results Component Value Date/Time CREATININE - [facility] 1.0 06/18/2024 07:20 AM CREATININE - [facility] 0.9 11/24/2020 08:53 AM CREATININE, RANDOM URINE - [facility] 201 12/06/2022 09:06 AM CREATININE, RANDOM URINE - [facility] 172 05/21/2020 10:26 AM CREATININE-[facility] 1.34 06/01/2024 12:00 AM Lab Results Component Value Date/Time POTASSIUM - [facility] 4.3 06/18/2024 07:20 AM POTASSIUM - [facility] 3.7 11/24/2020 08:53 AM POTASSIUM, RANDOM URINE - [facility] 52.5 02/08/2024 01:27 PM POTASSIUM-OUTSIDE LAB 4.5 06/01/2024 12:00 AM Lab Results Component Value Date/Time TSH - [facility] 1.54 09/18/2023 11:41 AM TSH - [facility] 1.34 08/25/2010 09:49 AM Lab Results Component Value Date/Time LDL (CALCULATED)-[facility] 81 10/09/2019 12:00 AM LDL (CALCULATED)-[facility] 83 10/05/2018 12:00 AM LDL (DIRECT MEASURE)-[facility] 98 02/11/2014 12:00 AM LDL (DIRECT MEASURE)-[facility] 81 03/23/2012 12:00 AM LDL CHOLESTEROL (CALCULATED) - [facility] 101 09/18/2023 11:41 AM LDL CHOLESTEROL (CALCULATED) - [facility] 105 06/21/2023 09:49 AM LDL CHOLESTEROL (CALCULATED) - [facility] 62 11/24/2020 08:53 AM LDL CHOLESTEROL (CALCULATED) - [facility] 80 02/24/2011 11:30 AM LDL CHOLESTEROL (DIRECT MEASURE) - [facility] NOT APPLICABLE 11/24/2020 08:53 AM Lab Results Component Value Date/Time ALT - [facility] 33 06/18/2024 07:20 AM ALT - [facility] 59 (H) 05/06/2003 08:20 AM Hemoglobin AIC Results: Lab Results Component Value Date/Time HEMOGLOBIN A1C - [facility] 8.4 (H) 04/19/2024 01:24 PM HEMOGLOBIN A1C - [facility] 7.0 (H) 01/05/2024 08:22 AM HEMOGLOBIN A1C - [facility] 5.9 (H) 09/18/2023 11:41 AM HEMOGLOBIN A1C - [facility] 5.8 (H) 11/24/2020 08:53 AM HEMOGLOBIN A1C - [facility] 6.0 (H) 05/21/2020 10:26 AM HEMOGLOBIN A1C - [facility] 6.5 (H) 02/24/2011 11:30 AM * Telephone Encounter - Mohamud Appiah - 07/04/2024 9:12 PM EDTPending Prescriptions: Disp Refills Mupirocin 2 % External Ointment (Bactroban)22 g 1 Sig: Apply topically to affected area 3 times a day. At hospital discharge documented in this encounter Plan of Treatment Upcoming Encounters Date Type Department Care Team (Latest Contact Info) Description 07/08/2024 11:45 AM EDT Imaging [facility] 2nd [facility] [address] [place] [phone] Gw, Excess Time Radiology [facility] [place] [address] 07/12/2024 11:00 AM EDT Office Visit Pharmacy, [address] [place] [address] [place] [address] 07/15/2024 11:20 AM EDT Office Visit Family Medicine [address] [place] [phone] Krystian Palomo MD [address] [place] [address] [place] [address] 07/19/2024 1:45 PM EDT Imaging Radiology [address], [place] [address] [place] [address] 07/31/2024 1:00 PM EDT Office Visit Nephrology, [facility] [address] [facility] [place] [address] Fernando Reina MD [address] [facility] [place], [place] [address] 09/05/2024 2:11 PM EST Hospital Encounter OR [facility], Operating Room, [facility] - 4th Floor [address] [facility] [place] [phone] Jayla Armstrong MD [address] [place] [address] 09/05/2024 2:11 PM EST - 09/05/2024 2:47 PM EST Surgery OR [facility], Operating Room, [facility] - 4th Floor [address] [facility] [place] [address] Jayla Armstrong MD [address] [place] [address] ESOPHAGOGASTRODUODENOSCOPY (EGD), FLEXIBLE, TRANSORAL, DIAGNOSTIC 10/18/2024 10:30 AM EST Office Visit Gastroenterology , [facility] [address] [place] [address] Ren Pineda CRNP [address] [place] [address] Scheduled Procedures Name Priority Associated Diagnoses Date/Ti fl ESOPHAGOGASTRODUODENOSCOPY ( EGD), FLEXIBLE, TRANSORAL, DIAGNOSTIC Rios's [...] this encounter Medical Devices Implanted Type Area Contact Center Representative Device Identifier Shelf Expiration Date Model / Serial / Lot Lipiodol Injection - [id number] Implanted:Qty: 1 on 08/02/2023 at [facility] [employer] 04/28/2026 [id number] 1 -2 [id number] Syr Pf 2ml Embospheres 100-300 - [id number] Implanted:Qty: 1 on 08/02/2023 at [facility] [employer] [id number] 02/26/2026 S220GH / / [id number] Syr Pf 2ml Embospheres 100-300 - [id number] Implanted:Qty: 1 on 04/11/2024 at [facility] [employer] [id number] 12/27/2026 S220GH / / [id number] Lipiodol Injection - [id number] Implanted:Qty: 1 on 04/11/2024 at [facility] [employer] [id number] 1 -2 documented as of this encounter Care Teams Jboss Developer Relationship Specialty Start Date End Date Krystian Palomo MD [address] [place] [address] [place] [phone] PCP - General Family Medicine 12/22/23 documented as of this encounter
[2024-07-18] MEDS ORDERED: MUPIROCIN 2% OINT 22 GM TUBE EXT PRN (20:52)
[2024-07-18] MEDS ORDERED: bisacodyL 5 MG TABEC PO PRN (20:52)
[2024-07-18] MEDS: INSULIN ASPART PER UNIT CHARGE SC SCH (21:06)
[2024-07-18] MEDS: LACTULOSE SYRUP 10 GM/15 ML BTL 960 ML PO SCH (21:29)
[2024-07-18] MEDS: POTASSIUM CHLORIDE CRTAB 20 MEQ TABCR PO SCH (21:29)
[2024-07-18] MEDS: UREA (UREA-NA) 15 GM PACK PO SCH (21:48)
[2024-07-18] MEDS: rifAXIMin 550 MG TABLET PO SCH (21:48)
[2024-07-18] MEDS: SODIUM CHLORIDE 1 GM TABLET PO SCH (21:48)
[2024-07-19] MEDS: METOPROLOL TARTRATE 25 MG TAB PO STA (00:22)
[2024-07-19 01:21] LABS: Appearance Urine Clear (Clear); Bacteria Urine Automated None Seen (None Seen); Bilirubin Urine Negative (Negative); Blood Urine Negative (Negative); Cast Urine Automated 0-2 /lpf (0-2); Color Urine Dark Yellow; Epithelial Cell Urine Auto 0-2 /hpf (0-2); Glucose Urine UA Negative (Negative); Ketones Urine Trace (Negative); Leukocyte Esterase Urine Trace (Negative); Nitrite Urine Negative (Negative); Protein Urine Negative (Negative); RBC Urine Automated 0-2 /hpf (0-2); Specific Gravity Urine 1.022 (1.000-1.030); Urobilinogen Urine Negative (Negative); WBC Urine Automated 0-5 /hpf (0-5); pH Urine 5.5 (4.5-7.5)
[2024-07-19] MEDS: PANTOprazole 40 MG TAB PO SCH (05:30)
[2024-07-19 05:53] LABS: Basophils # (auto) 0.09 K/uL (0.00-0.20); Basophils % (auto) 1.7 %; Eosinophils # (auto) 0.28 K/uL (0.00-0.50); Eosinophils % (auto) 5.1 %; Hematocrit (blood only) 26.9 % (42.0-52.0); Hemoglobin 9.3 g/dl (14.0-18.0); Immature Granulocytes # (auto) 0.02 K/uL (0.01-0.20); Immature Granulocytes % (auto) 0.4 %; Lymphocytes # (auto) 0.57 K/uL (1.20-3.40); Lymphocytes % (auto) 10.5 %; Mean Corpuscular Hgb Conc 34.6 g/dL (32.0-36.0); Mean Corpuscular Volume 104.3 fL (80.0-100.0); Mean Platelet Volume 10.6 fL (9.4-12.4); Monocytes # (auto) 0.94 K/uL (0.11-0.59); Monocytes % (auto) 17.2 %; Neutrophils # (auto) 3.55 K/uL (1.40-6.50); Neutrophils % (auto) 65.1 %; Platelet Count 68 K/uL (130-400); RDW Coefficient of Variation 15.7 % (11.5-14.5); RDW Standard Deviation 59.1 fL (36.4-46.3); Red Blood Count 2.58 M/uL (4.70-6.10); White Blood Count 5.45 K/ul (4.8-10.8)
[2024-07-19 06:28] LABS: BUN Creatinine Ratio 7.7 (10-20); Creatinine Clr Calc Pharmacy 113.3 ml/min; Est GFR (African American) 106.5 ml/min; Est GFR (Non-African American) 91.9 ml/min; Magnesium 1.9 mg/dl (1.7-2.4); Potassium 3.9 mmol/L (3.5-5.1)
--- OUTSIDE RECORDS SUMMARY | 2024-07-19 06:55 | External Medical Summary | Summary of Care ---
Author Name Unknown Organization [facility] Address [address] [facility] [address] Phone [phone] Care Team Providers Care Life Enrichment Assistant Name Role Phone Krystian Palomo MD Primary Care Provide r Reason for Visit * Reason Onset Date Comments Call Back 07/11/2024 Patient requesti ng that provider call him with results from testing from [facility] Encounter Details Date Type Department Care Team (Late st Contact Info) Description 07/11/2024 Telephone Family [address] [phone] Krystian Palomo MD [address] [place] [address] [place] [phone] Call Back (Patient requesting that provide... 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 15 mL 3 04/19/2024 Active Pen [place] 32G X 4 MM Use as directed. 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 07/05/2023 Hepatic encephalopathy 03/28/2022 Overview: admitted [facility], ammonia 110 Aortic stenosis, moderate 01/21/2022 [...] as of this encounter (statuses as of 07/18/2024) Resolved Problems Problem Noted Date Diagnosed Date [...] as of this encounter (statuses as of 07/18/2024) Immunizations Name Administration Dates Next Due COVID-19 [...] Telephone Encounter - Krystian Palomo MD - 07/18/2024 10:11 AM EDT Called the pt - no answer - no option to leave a VM When pt calls back - can we ask the pt who ordered those labs and any recent hx of blood or dark stool Clinical note: Lab showed Na of 128, Hgb of 9.8 , Cr of 1.1 and plt of 78 - over the labs are stable but the hgb is lower than last month value * Telephone Encounter - Obdulia Lopez OSA - 07/11/2024 10:30 AM EDT Patient requesting that provider call him with results from testing from [facility]. Please assist documented in this encounter Plan of Treatment Upcoming Encounters Date Type Department Care Team (Latest Contact Info) Description 07/31/2024 1:00 PM EDT [facility] [address] [facility] [place] [address] Fernando Reina MD [address] [facility] [place] [address] 08/01/2024 9:30 AM EDT Office Visit Pharmacy, [address] [place] [address] [place] [address] 09/05/2024 2:17 PM EST Hospital Encounter OR [facility], Operating Room, [facility] - 4th Floor [address] [place] [phone] Jayla Armstrong MD [address] [place] [address] [place] [address] 09/05/2024 2:17 PM EST - 09/05/2024 2:53 PM EST Surgery OR [facility], Operating Room, [facility] - 4th Floor [address] [place] [phone] Jayla Armstrong MD [address] [facility] [place] [address] ESOPHAGOGASTRODUODENOSCOPY (EGD), FLEXIBLE, TRANSORAL, DIAGNOSTIC 10/18/2024 10:30 AM EST Office Visit Gastroenterology , [facility] [address] [place] [address] Ren Pineda CRNP [address] [place] [address] Scheduled Procedures Name Priority Associated Diagnoses Date/Ti [...] 030 05/2024, 09/18/2023, Additional history exists GFR 07/09/2025 [...] this encounter Medical Devices Implanted Type Area Hvac Installation Technician Device Identifier Shelf Expiration Date Model / Serial / Lot Lipiodol Injection - [id number] Implanted:Qty: 1 on 08/02/2023 at [facility] [employer] 04/28/2026 [id number] 1 [id number] Syr Pf 2ml Embospheres 100-300 - [id number] Implanted:Qty: 1 on 08/02/2023 at [facility] [employer] [id number] 02/26/2026 S220GH / / [id number] Syr Pf 2ml Embospheres 100-300 - [id number] Implanted:Qty: 1 on 04/11/2024 at [facility] [employer] [id number] 12/27/2026 S220GH / / [id number] Lipiodol Injection - [id number] Implanted:Qty: 1 on 04/11/2024 at [facility] [employer] [id number] 1 -2 / / documented as of this encounter Care Teams Life Enrichment Assistant Relationship Specialty Start Date End Date Krystian Palomo MD [address] [place] [address] [place] [phone] PCP - General Family Medicine 12/22/23 documented as of this encounter
[2024-07-19] MEDS: MIDODRINE HCL 2.5 MG TAB PO SCH (08:28)
[2024-07-19] MEDS: ATORVASTATIN 20 MG TAB PO SCH (08:29)
[2024-07-19] MEDS: ASCORBIC ACID 500 MG TAB PO SCH (08:29)
[2024-07-19] MEDS: allopurinoL 300 MG TAB PO SCH (08:29)
[2024-07-19] MEDS: MULTIVITAMIN TAB PO SCH (08:30)
[2024-07-19] MEDS: TAMSULOSIN HCL 0.4 MG CAP PO SCH (08:30)
[2024-07-19] MEDS: TORSEMIDE 20 MG TAB PO SCH (08:31)
[2024-07-19] MEDS: DOCUSATE SODIUM 100 MG CAP PO SCH (08:44)
--- NOTE | 2024-07-19 10:48 | XRay Report ---
KUB HISTORY: Acute generalized abdominal pain with constipation f/u constipation COMPARISON: KUB 07/18/2024, CT abdomen and pelvis 06/29/2024. FINDINGS: There are a few mildly dilated air-filled loops of small bowel again noted which are simila r to prior measuring up to 3.8 cm. Air is also noted within the nondilated large bowel. Limited exam secondary to patient body habitus. There is decreased fecal retention, now mild to moderate. No renal calculi. No ureteral calculi. No pneumoperitoneum or pneumatosis. No fracture. IMPRESSION: 1. There is decreased colonic fecal retention which is now mild to moderate. 2. Borderline dilated air-filled loops of small bowel in the central abdomen are nonspecific and may represent an ileus. Follow-up KUB recommended in order to exclude obstruction. ACT 112: Negative or not required by law. The above report was generated using voice recognition software. It may contain grammatical, syntax o r spelling errors. Electronically signed by: Alfredo Thornton M.D. 07/19/2024 10:46 AM
--- NOTE | 2024-07-19 13:05 | Electrocardiogram Report ---
Test Reason : Blood Pressure : */* mmHG Vent. Rate : 80 BPM Atrial Rate : 80 BPM P-R Int : 138 ms QRS Dur : 84 ms QT Int : 400 ms P-R-T Axes : 18 42 64 degrees QTcB Int : 462 ms Normal sinus rhythm Normal ECG When compared with ECG of 18-Jul-2024 12:14, No significant change was found Confirmed by Alvaro Rock ([id number]) on 07/19/2024 1:04:42 PM Referred By: REFERRED SELF Confirmed By: Alvaro Rock
--- NOTE | 2024-07-19 13:15 | Gastrointestinal Consultation ---
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: -Continue diuretics as advised by nephrology -Continue meds for HE--Lactulose TID now, but can titrate for goal of 3-4 BMs daily; continue Xifaxan 550 mg BID -2 gm Na restriction -Avoid hepatotoxins -Avoid NSAIDs; Tylenol limit to <2000 mg daily -Will need to follow-up with hepatology regarding recent imaging findings concerning for HCC -See abdominal pain--may need paracentesis during admission pending KUB results (2) Abdominal pain: Await repeat KUB since treating constipation; If no other findings contributing to distention/abdominal discomfort, consider paracentesis Supervising Physician Co-Signing Physician Notes I saw and examined this patient with our nurse practitioner and agree with her a ssessment and plan. Clinically improving after bowel regimen. Feels better post bowel movements. Continue present bowel regimen. X-ray shows improvement in fecal load there may be a small nonspecific ileus. If symptoms persist or worsen would repeat KUB and consider an attempt at a large-volume paracentesis again if accessible. History of Present Illness Reason for Consultation: Constipation, ascites Attending Physician: Karsten Delgado MD History of Present Illness Patient is a 58 yo male who presents to the ED with abdominal pain. He has a history of GONZALES cirrhosis for which he follows with [facility]. He has been evaluated for liver transplant and is not a candidate per records. He has a history of HCC with [facility] in the past. Patient notes that he came in with abdominal discomfort. This is improving. He is prescribed Lactulose at home, but there are concerns for medical nonadherence with Lactulose at home. He last had a paracentesis 10 days ago. He notes these are managed by his hepatology team. He notes that since coming to the ED, he is significantly moving his bowels. He was recently hospitalized and due to hyponatremia & nephro concerns, nephrology advised he be on Torsemide 20 mg daily. His other diuretics were stopped. A recent CT in May indicated some concern for HCC. He is unclear what the next step is for this finding. An US on admission showed a small amount of ascit es. A KUB is pending from today. MELD 22 based on today's labs. Allergies Allergy/AdvReac Type Severity Reaction Status Date / Time aspirin AdvReac Intermediate NOSE Verified 06/29/24 20:54 BLEEDS--IF TAKES REGULARLY salicylates AdvReac Intermediate NOSE BLEEDS Verified 06/29/24 20:54 Home Medications Medication Instructions Recorded Confirmed Type allopurinol 300 mg tablet 300 mg PO QAM 06/03/19 07/18/24 History metformin 500 mg tablet 500 mg PO BIDM 06/03/19 07/18/24 History multivitamin 1 tab PO QAM 06/03/19 07/18/24 History atorvastatin 20 mg tablet 20 mg PO QAM 04/21/21 07/18/24 History ascorbic acid (vitamin C) 1,000 mg 1 g PO QAM 08/27/23 07/18/24 History tablet (Vitamin C) tamsulosin 0.4 mg capsule 0.4 mg PO DAILY 10/04/23 07/18/24 History rifaximin 550 mg tablet (Xifaxan) 550 mg PO BID 01/02/24 07/18/24 History omeprazole 20 mg capsule,delayed 20 mg PO DAILYBB 02/27/24 07/18/24 History release mupirocin 2 % topical ointment 1 applic EXT TID PRN Wound Care 06/21/24 07/18/24 History potassium chloride 10 mEq 20 meq (2 x 10 mEq) PO BID 30 days 06/28/24 07/18/24 Rx tablet,extended release(part/cryst) #120 tabs Lactobacillus acidophilus 10 10,000 mmu cells PO TID 06/29/24 07/18/24 History billion cell capsule (Probiotic) insulin glargine 100 unit/mL (3 10 unit subcut DAILY 06/29/24 07/18/24 History mL) subcutaneous pen (Lantus Solostar U-100 Insulin) midodrine 2.5 mg tablet 5 mg (2 x 2.5 mg) PO TIDM #60 tabs 07/06/24 07/18/24 Rx sodium chloride 1,000 mg soluble 1,000 mg PO BID 30 days #60 tabs 07/06/24 07/18/24 Rx tablet torsemide 20 mg tablet 20 mg PO QAM #30 tabs 07/06/24 07/18/24 Rx urea 15 gram oral powder packet 15 g PO BID #8 ea 07/06/24 07/18/24 Rx (Ure-Na) lactulose 20 gram/30 mL oral 30 g PO TID Cirrhosis 07/18/24 07/18/24 History solution Patient History Medical History Ureterolithiasis Hepatocellular carcinoma s/p IR embolization Pulmonary hypertension Diabetes mellitus NAFLD (nonalcoholic fatty liver disease) Chronic hyponatremia Dizziness r/t the cirrhosis - using a cane at this time. "if i get up to fast". S/P abdominal paracentesis Fracture of rib of right side 2013 Anaplasmosis 2019 Acute hepatic encephalopathy Cardiac murmur HX Hypertension Right rib fracture hx ~. Surgical History History of esophagogastroduodenoscopy (EGD) History of colonoscopy Family History Mother History of colonoscopy Brother Family history of diabetes mellitus Brother Family history of diabetes mellitus Grandmother (Paternal) Family history of diabetes mellitus Other No family history of adverse response to anesthesia Social History Smoking Status: Never smoker Tobacco Type: Smokeless Tobacco (Dip or Chew) Second Hand Exposure: No; Do You Dip or Chew Tobacco: Yes; Hx Alcohol Use: No Hx Substance Use: No Preferred Language: Maori Communication Ability: Effective Propagator Required: No Beliefs That Will Affect Care: None marital status: Single Current Living Situation: Family Current Living Situation Comment: With brother and mother Other Information That Helps Us Care for You: No Feels Safe at Home: Yes Safety Concerns: Feels Safe At This Time Assistive Devices: Cane, Scooter/Electric Scooter and Walker Review of Systems Constitutional: no fever and no chills Respiratory: no cough and no dyspnea Cardiovascular: no chest pain Gastrointestinal: + abdominal pain and + bloating Physical Exam Constitutional: WD/WN, vitals as above Respiratory: normal respiratory effort Gastrointestinal (Abdomen): Inspection/Auscultation: + abdomen distended Results & Data Vital Signs (Past 12 Hours) Vital Signs Temp Pulse Pulse Resp BP BP Pulse Ox 07/19/24 11:51 36.5 C 86 18 116/79 98 07/19/24 10:56 79 07/19/24 10:33 36.5 C 83 16 110/68 98 07/19/24 08:38 36.7 C 149 H 16 116/70 90 07/19/24 02:25 36.7 C 80 20 105/68 98 07/19/24 01:31 80 O2 Del Method 07/19/24 11:51 Room Air 07/19/24 10:56 07/19/24 10:33 Room Air 07/19/24 08:38 Room Air 07/19/24 02:25 Room Air 07/19/24 01:31 Laboratory Results Laboratory Results - last 48 hr 07/18/24 07/18/24 07/18/24 11:44 13:35 20:58 WBC 5.44 RBC 2.79 L Hgb 10.1 L Hct 29.5 L MCV 105.7 H MCH 36.2 H MCHC 34.2 RDW Std Deviation 60.7 H RDW Coeff of [place] 15.6 H Plt Count 76 L MPV 10.2 Immature Gran % (Auto) 0.2 Neut % (Auto) 66.7 Lymph % (Auto) 11.9 [place]ores % (Auto) 16.7 Eos % (Auto) 2.8 Baso % (Auto) 1.7 Neut # (Auto) 3.63 Lymph # (Auto) 0.65 L [place] # (Auto) 0.91 H Eos # (Auto) 0.15 Baso # (Auto) 0.09 Immature Gran # (Auto) 0.01 PT 16.0 H INR 1.5 H Sodium 131 L Potassium 2.9 L Chloride 95 L Carbon Dioxide 24 Anion Gap 12 H BUN 8 Creatinine 1.12 Est Cr Clr Drug Dosing 93.2 Est GFR ( Amer) 82.9 Est GFR (Non-Af Amer) 71.5 BUN/Creatinine Ratio 7.1 L Glucose 205 H POC Glucose 150 H Calcium 8.2 L Magnesium 1.5 L Total Bilirubin 4.0 H AST 59 H ALT 40 Alkaline Phosphatase 130 H Ammonia 42.0 Total Protein 6.2 Albumin 2.6 L Globulin 3.6 Albumin/Globulin Ratio 0.7 L Lipase 55 Urine Color Urine Appearance Urine pH Ur Specific [place] Urine Protein Urine Glucose (UA) Urine Ketones Urine Blood Urine Nitrite Urine Bilirubin Urine Urobilinogen Ur Leukocyte Esterase Urine WBC (Auto) Urine RBC (Auto) U Hyaline Cast (Auto) U Epithel Cells (Auto) Urine Bacteria (Auto) 07/19/24 07/19/24 07/19/24 01:00 05:19 08:26 WBC 5.45 RBC 2.58 L Hgb 9.3 L Hct 26.9 L MCV 104.3 H MCH 36.0 H MCHC 34.6 RDW Std Deviation 59.1 H RDW Coeff of [place] 15.7 H Plt Count 68 L MPV 10.6 Immature Gran % (Auto) 0.4 Neut % (Auto) 65.1 Lymph % (Auto) 10.5 [place] % (Auto) 17.2 Eos % (Auto) 5.1 Baso % (Auto) 1.7 Neut # (Auto) 3.55 Lymph # (Auto) 0.57 L [place] # (Auto) 0.94 H Eos # (Auto) 0.28 Baso # (Auto) 0.09 Immature Gran # (Auto) 0.02 PT INR Sodium 130 L Potassium 3.9 D Chloride 100 Carbon Dioxide 25 Anion Gap 5 BUN 7 Creatinine 0.91 Est Cr Clr Drug Dosing 113.3 Est GFR ( Amer) 106.5 Est GFR (Non-Af Amer) 91.9 BUN/Creatinine Ratio 7.7 L Glucose 134 H POC Glucose 114 H Calcium 8.0 L Magnesium 1.9 Total Bilirubin AST ALT Alkaline Phosphatase Ammonia Total Protein Albumin Globulin Albumin/Globulin Ratio Lipase Urine Color Dark Yellow Urine Appearance Clear Urine pH 5.5 Ur Specific [place] 1.022 Urine Protein Negative Urine Glucose (UA) Negative Urine Ketones Trace H Urine Blood Negative Urine Nitrite Negative Urine Bilirubin Negative Urine Urobilinogen Negative Ur Leukocyte Esterase Trace H Urine WBC (Auto) 0-5 Urine RBC (Auto) 0-2 U Hyaline Cast (Auto) 0-2 U Epithel Cells (Auto) 0-2 Urine Bacteria (Auto) None Seen 07/19/24 12:27 WBC RBC Hgb Hct MCV MCH MCHC RDW Std Deviation RDW Coeff of [place] Plt Count MPV Immature Gran % (Auto) Neut % (Auto) Lymph % (Auto) Dolores % (Auto) Eos % (Auto) Baso % (Auto) Neut # (Auto) Lymph # (Auto) [place] # (Auto) Eos # (Auto) Baso # (Auto) Immature Gran # (Auto) PT INR Sodium Potassium Chloride Carbon Dioxide Anion Gap BUN Creatinine Est Cr Clr Drug Dosing Est GFR ( Amer) Est GFR (Non-Af Amer) BUN/Creatinine Ratio Glucose POC Glucose 222 H Calcium Magnesium Total Bilirubin AST ALT Alkaline Phosphatase Ammonia Total Protein Albumin Globulin Albumin/Globulin Ratio Lipase Urine Color Urine Appearance Urine pH Ur Specific [place] Urine Protein Urine Glucose (UA) Urine Ketones Urine Blood Urine Nitrite Urine Bilirubin Urine Urobilinogen Ur Leukocyte Esterase Urine WBC (Auto) Urine RBC (Auto) U Hyaline Cast (Auto) U Epithel Cells (Auto) Urine Bacteria (Auto) Diagnostic Findings Abdomen Ultrasound 07/18/24 14:55 US abdomen ltd ascites CLINICAL HISTORY: abd distention, hx ascites COMPARISON STUDY: Abdomen and pelvis CT 06/29/2024. FINDINGS: There is a small to moderate amount of scattered ascites most pronounced within the right upper quadrant. Nodular contour to the liver consistent with cirrhosis. There is an umbilical hernia containing fluid. IMPRESSION: Small to moderate amount of ascites. ACT 112: Negative or not required by law. Electronically signed by: Huber Alvarado M.D. 07/18/2024 4:07 PM KUB X-Ray 07/19/24 09:00 KUB HISTORY: Acute generalized abdominal pain with constipation f/u constipation COMPARISON: KUB 07/18/2024, CT abdomen and pelvis 06/29/2024. FINDINGS: There are a few mildly dilated air-filled loops of small bowel again noted which are similar to prior measuring up to 3.8 cm. Air is also noted within the nondilated large bowel. Limited exam secondary to patient body habitus. There is decreased fecal retention, now mild to moderate. No renal calculi. No ureteral calculi. No pneumoperitoneum or pneumatosis. No fracture. IMPRESSION: 1. There is decreased colonic fecal retention which is now mild to moderate. 2. Borderline dilated air-filled loops of small bowel in the central abdomen are nonspecific and may represent an ileus. Follow-up KUB recommended in order to exclude obstruction. ACT 112: Negative or not required by law. The above report was generated using voice recognition software. It may contain grammatical, syntax or spelling errors. Electronically signed by: Alfredo Thornton M.D. 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
--- NOTE | 2024-07-19 13:34 | Hospitalist Progress Note ---
Date of Service July 19, 2024 Assessment & Plan (1) Constipation: Plan: Patient is a 58 yr male with liver cirrhosis secondary to GONZALES, recurrent ascites, hx hepatic encephalopathy, hx HCC, insulin-requiring DM2, moderate aortic stenosis, HTN, and other history as outlined below who presented to the ED today with progressive abdominal distention with associated discomfort. Work- up in the ED showed moderate fecal retention, mild to moderate ascites. Suspect both are contributed to patient's bloating and discomfort. Additionally, it is unclear how compliant patient has been with recommended medications as there seems to be some confusion on what doses he has been taking of several medications, specifically the lactulose and midodrine, since discharge earlier this month. Constipation Moderate fecal retention --KUB:Nonobstructive bowel gas pattern. Moderate fecal retention. 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 Continue lactulose/Xifaxan May benefit from paracentesis prior to discharge Gastroenterology consulted (4) Ascites: Plan: Recurrent issue - last paracentesis was 07/09 Continue torsemide Management as above (5) Hepatic encephalopathy: Plan: No signs of encephalopathy currently Continue Lactulose/Xifaxan (6) Diabetes mellitus, type 2: Plan: Insulin sliding scale while admitted Diabetic diet BSG ACHS (7) Hyponatremia: Plan: Chronic hyponatremia Sodium levels at baseline Sodium 130 today Continue fluid restriction, urea, salt tablets Plan DVT Px: SCDs Re: thrombocytopenia CODE STATUS Full code Admission and Anticipated Discharge Date Admission Date: July 18, 2024 Subjective Patient is seen and examined at bedside Had 2 bowel movements today KUB suggestive of decreased fecal retention States having abdominal discomfort Denies any shortness of breath, chest pain, nausea, vomiting No other complaints Review of Systems Review of Systems: All systems reviewed & are unremarkable except as noted in Subjective Physical Exam Physical Exam: Physical Exam: Vitals signs as noted above General Appearance:Obese, no apparent distress Head: normocephalic, Atraumatic Eyes: normal inspection, EOMI Neck: supple, Trachea midline Respiratory/Chest: Normal breath sounds, CTA, No accessory muscle use Cardiovascular: S1, S2, + murmur Abdomen/GI:Soft, Non tender, distended, Bowel sounds present Extremities/Musculoskeletal:normal inspection, Trace edema Neurologic/Psych:AAOX3, grossly no focal neurological deficits Skin: normal color, warm,+Jaundice Results & Data Results & Data Vital Signs (Past 12 Hours) Vital Signs Temp Pulse Pulse Resp BP BP Pulse Ox 07/19/24 11:51 36.5 C 86 18 116/79 98 07/19/24 10:56 79 07/19/24 10:33 36.5 C 83 16 110/68 98 07/19/24 08:38 36.7 C 149 H 16 116/70 90 07/19/24 02:25 36.7 C 80 20 105/68 98 07/19/24 01:31 80 O2 Del Method 07/19/24 11:51 Room Air 07/19/24 10:56 07/19/24 10:33 Room Air 07/19/24 08:38 Room Air 07/19/24 02:25 Room Air 07/19/24 01:31 Laboratory Results Short CBC 07/19/24 Range/Units 05:19 WBC 5.45 (4.8-10.8) K/ul Hgb 9.3 L (14.0-18.0) g/dl Hct 26.9 L (42.0-52.0) % Plt Count 68 L (130-400) K/uL BMP 07/19/24 05:19 Sodium 130 L Potassium 3.9 D Chloride 100 Carbon Dioxide 25 BUN 7 Creatinine 0.91 Glucose 134 H Calcium 8.0 L Urine 07/19/24 Range/Units 01:00 Urine Color Dark Yellow Urine Appearance Clear (Clear) Urine pH 5.5 (4.5-7.5) Ur Specific [place] 1.022 (1.000-1.030) Urine Protein Negative (Negative) Urine Glucose (UA) Negative (Negative) (1) Constipation Constipation type: unspecified constipation type Qualified Code(s): K59.00 - Constipation, unspecified (2) Abdominal pain Abdominal location: generalized Qualified Code(s): R10.84 - Generalized abdominal pain (4) Ascites Ascites type: other type Qualified Code(s): R18.8 - Other ascites (6) Diabetes mellitus, type 2 Diabetes mellitus group home insulin use: with intermediate accountant use Diabetes mellitus complication status: with other specified complication Qualified Code(s): E11.69 - Type 2 diabetes mellitus with other specified complication; Z79.4 - superintendent container terminal (current) use of insulin
[2024-07-19] MEDS: SENNA 8.6 MG TAB PO SCH (19:48)
[2024-07-20 06:49] LABS: Hematocrit (blood only) 24.7 % (42.0-52.0); Hemoglobin 8.9 g/dl (14.0-18.0); Mean Corpuscular Hemoglobin 37.2 pg (25.0-34.0); Mean Corpuscular Volume 103.3 fL (80.0-100.0); Mean Platelet Volume 10.4 fL (9.4-12.4); Platelet Count 78 K/uL (130-400); RDW Coefficient of Variation 15.9 % (11.5-14.5); RDW Standard Deviation 59.9 fL (36.4-46.3); Red Blood Count 2.39 M/uL (4.70-6.10); White Blood Count 5.83 K/ul (4.8-10.8)
[2024-07-20 07:09] LABS: BUN Creatinine Ratio 7.6 (10-20); Calcium 7.8 mg/dl (8.6-10.3); Creatinine Clr Calc Pharmacy 98.9 ml/min; Est GFR (African American) 89.6 ml/min; Est GFR (Non-African American) 77.3 ml/min; Magnesium 1.7 mg/dl (1.7-2.4); Potassium 3.6 mmol/L (3.5-5.1)
--- NOTE | 2024-07-20 09:14 | XRay Report ---
KUB HISTORY: Acute generalized abdominal pain with ileus Ileus COMPARISON: KUB 07/19/2024 FINDINGS: There is decreased small bowel distention compared to the prior study. Nondilated air-fille d loops of large and small bowel. Mild to moderate colonic fecal retention. No renal calculi. No ure teral calculi. No pneumoperitoneum or pneumatosis. No fracture. IMPRESSION: 1. Nonobstructive bowel gas pattern with resolution of the previously noted ileus. 2. [id number] colonic fecal retention. ACT 112: Negative or not required by law. The above report was generated using voice recognition software. It may contain grammatical, syntax o r spelling errors. Electronically signed by: Alfredo Thornton M.D. 07/20/2024 9:13 AM
[2024-07-20] MEDS: MAGNESIUM CHLORIDE W/CALCIUM 64MG DELAYED REL TAB PO SCH (10:03)
--- NOTE | 2024-07-20 16:39 | Hospitalist Progress Note ---
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 Work- up in the ED showed moderate fecal retention, mild to moderate ascites. Suspect both are contributed to patient's bloating and discomfort. Additionally, it is unclear how compliant patient has been with recommended medications as there seems to be some confusion on what doses he has been taking of several medications, specifically the lactulose and midodrine, since discharge earlier this month. Constipation Moderate fecal retention/Ileus --KUB:Nonobstructive bowel gas pattern. Moderate fecal retention. Continue lactulose, added bowel regimen in edition Given ascites, abdominal paracentesis might help with constipation GI on board Repeat KUB showed resolution of ileus Hypokalemia Hypomagnesemia Replete electrolytes as needed Monitor (2) Abdominal pain: Plan: Likely multifactorial due to constipation and ascites (3) 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: Plan: Pt has been evaluated by transplant clinic in [place] - pt is not currently listed, per pt due to aortic stenosis, chart also notes insurance/financial concerns --CT ABD: Small to moderate amount of ascites. Continue lactulose/Xifaxan GI on board Plan for abdominal paracentesis prior to discharge likely Monday by IR (4) Ascites: Plan: Recurrent issue - last paracentesis was 07/09 Continue torsemide Management as above (5) Hepatic encephalopathy: Plan: No signs of encephalopathy currently Continue Lactulose/Xifaxan (6) Diabetes mellitus, type 2: Plan: Insulin sliding scale while admitted Diabetic diet BSG ACHS (7) Hyponatremia: Plan: Chronic hyponatremia Sodium levels at baseline Sodium 132 today Continue fluid restriction, urea, salt tablets Plan DVT Px: SCDs Re: thrombocytopenia CODE STATUS Full code Admission and Anticipated Discharge Date Admission Date: July 18, 2024 Subjective Patient is seen and examined at bedside States feeling better today Prefers to have paracentesis prior to discharge Denies any shortness of breath, chest pain, nausea, vomiting Review of Systems Review of Systems: All systems reviewed & are unremarkable except as noted in Subjective Physical Exam Physical Exam: Physical Exam: Vitals signs as noted above General Appearance:Obese, no apparent distress Head: normocephalic, Atraumatic Eyes: normal inspection, EOMI Neck: supple, Trachea midline Respiratory/Chest: Normal breath sounds, CTA, No accessory muscle use Cardiovascular: S1, S2, + murmur Abdomen/GI:Soft, Non tender, distended, Bowel sounds present Extremities/Musculoskeletal:normal inspection, Trace edema Neurologic/Psych:AAOX3, grossly no focal neurological deficits Skin: normal color, warm,+Jaundice Results & Data Results & Data Vital Signs (Past 12 Hours) Vital Signs Temp Pulse Pulse Resp BP Pulse Ox O2 Del Method 07/20/24 15:20 36.8 C 105 H 18 104/72 98 Room Air 07/20/24 15:08 94 H 07/20/24 11:24 36.7 C 94 H 18 107/69 96 Room Air 07/20/24 08:04 36.6 C 94 H 20 104/67 97 Room Air 07/20/24 07:20 100 H Laboratory Results Short CBC 07/20/24 Range/Units 05:55 WBC 5.83 (4.8-10.8) K/ul Hgb 8.9 L (14.0-18.0) g/dl Hct 24.7 L (42.0-52.0) % Plt Count 78 L (130-400) K/uL BMP 07/20/24 05:55 Sodium 132 L Potassium 3.6 Chloride 101 Carbon Dioxide 25 BUN 8 Creatinine 1.05 Glucose 154 H Calcium 7.8 L (1) Constipation Constipation type: unspecified constipation type Qualified Code(s): K59.00 - Constipation, unspecified (2) Abdominal pain Abdominal location: generalized Qualified Code(s): R10.84 - Generalized abdominal pain (6) Diabetes mellitus, type 2 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
--- NOTE | 2024-07-20 23:51 | Communication Note ---
Date of Service: July 20, 2024 Patient with sudden onset abdominal/rib pain with SOB. Tachycardic at 120s. AP Chest/abdominal pain in the setting of ascites Possible SBP, no sepsis for now Rule out PE Ceftriaxone albumin for possible SBP Await contemplated diagnostic/therapeutic paracentesis CT chest PE study/CT abdomen pelvis
[2024-07-21 00:27] LABS: INR 1.7 (0.9-1.1); Partial Thromboplastin Ratio 1.3; Partial Thromboplastin Time 36 Seconds (21-31); Prothrombin Time 17.9 Seconds (9.0-12.0)
[2024-07-21] MEDS: MAGNESIUM SULFATE / D5W 1 GM/100 ML BAG IV SCH (00:51)
[2024-07-21] MEDS: POTASSIUM CHLORIDE PWD 20 MEQ PACK PO STA (00:51)
[2024-07-21] MEDS: cefTRIAXone SODIUM 2,000 MG/50 ML BAG IV SCH (00:51)
[2024-07-21] MEDS: ALBUMIN 25% 25 GM/100 ML VIAL IV SCH (00:52)
[2024-07-21] MEDS: ACETAMINOPHEN 500 MG TAB PO STA (00:56)
[2024-07-21] MEDS: oxyCODONE HCL IR 5 MG TAB (IMMEDIATE RELEASE) PO STA (00:57)
[2024-07-21] MEDS: OPTIRAY 320 125ml IV ONE (00:58)
--- NOTE | 2024-07-21 02:19 | CT Scan Report ---
Exam(s): CTA CHEST IV Amt: 119 cc's optiray 320 EXAM: CT Angiography Chest With Intravenous Contrast CLINICAL HISTORY: Reason for exam: rib pain/sob. TECHNIQUE: Axial computed tomographic angiography images of the chest with intravenous contrast. CTDI is 105.95 mGy and DLP is 2669.11 mGy-cm. Automated exposure control was utilized for the study. A dose lowering technique was utilized adhering to the principles of ALARA. MIP reconstructed images were created and reviewed. COMPARISON: No relevant prior studies available. FINDINGS: Pulmonary arteries: Unremarkable. No pulmonary embolism. Aorta: No acute findings. No thoracic aortic aneurysm. Lungs: See below. Pleural space: Moderate LEFT pleural effusion with subjacent airspace consolidation, likely atelectasis. Heart: Unremarkable. No cardiomegaly. No significant pericardial effusion. No evidence of RV dysfunction. Bones/joints: No acute fracture. No dislocation. Soft tissues: Unremarkable. Lymph nodes: Unremarkable. No enlarged lymph nodes. Intraperitoneal space: Abdominal ascites. IMPRESSION: 1. No pulmonary embolism. 2. Moderate LEFT pleural effusion with subjacent airspace consolidation, likely atelectasis. 3. Abdominal ascites. Electronically signed by: Jakob Marrero MD 07/21/24 02:18 AM
--- NOTE | 2024-07-21 02:41 | CT Scan Report ---
Exam(s): CT ABDOMEN + PELVIS With Contrast IV Amt: 119 cc's optiray 320 EXAM: CT Abdomen and Pelvis With Intravenous Contrast CLINICAL HISTORY: Reason for exam: abd pain. TECHNIQUE: Axial computed tomography images of the abdomen and pelvis with intravenous contrast. CTDI is 105.95 mGy and DLP is 2669.11 mGy-cm. Automated exposure control was utilized for the study. A dose lowering technique was utilized adhering to the principles of ALARA. CONTRAST: Patient received 119 cc's optiray 320 of IV contrast COMPARISON: No relevant prior studies available. FINDINGS: Lung bases: Unremarkable. No mass. No consolidation. Pleural space: Moderate LEFT pleural effusion. ABDOMEN: Liver: Calcification in the posterior RIGHT hepatic lobe measures 2 cm. Gallbladder and bile ducts: Unremarkable. No calcified stones. No ductal dilation. Pancreas: Unremarkable. No mass. No ductal dilation. Spleen: Unremarkable. No splenomegaly. Adrenals: Unremarkable. No mass. Kidneys and ureters: Unremarkable. No solid mass. No hydronephrosis. Stomach and bowel: Mild fluid-filled small bowel with mild wall thickening, concerning for mild enteritis versus spontaneous bacterial peritonitis. No obstruction. PELVIS: Appendix: No findings to suggest acute appendicitis. Bladder: Unremarkable. No mass. Reproductive: Unremarkable as visualized. ABDOMEN and PELVIS: Intraperitoneal space: Moderate abdominal ascites, which extends into an umbilical hernia. No free air. Bones/joints: No acute fracture. No dislocation. Soft tissues: See above. Vasculature: Unremarkable. No abdominal aortic aneurysm. Lymph nodes: Unremarkable. No enlarged lymph nodes. IMPRESSION: 1. Moderate abdominal ascites, which extends into an umbilical hernia. 2. Mild fluid-filled small bowel with mild wall thickening, concerning for mild enteritis versus spontaneous bacterial peritonitis. 3. Moderate LEFT pleural effusion. Electronically signed by: Jakob Marrero MD 07/21/24 02:40 AM
--- NOTE | 2024-07-21 08:05 | XRay Report ---
XR chest 1V portable CLINICAL HISTORY: Shortness of breath. COMPARISON STUDY: Chest CT June 01, 2024. Chest radiograph July 18, 2024. FINDINGS: There is no pneumothorax. A moderate left pleural effusion is noted. There is no right pleu ral effusion. There is pulmonary vascular congestion. Cardiomediastinal silhouette is normal. IMPRESSION: 1. Moderate left pleural effusion which has developed since prior exam. 2. Pulmonary vascular congestion. ACT 112: Negative or not required by law. Electronically signed by: Issac Rankin M.D. 07/21/2024 8:03 AM
[2024-07-21 08:23] LABS: Hematocrit (blood only) 26.1 % (42.0-52.0); Mean Corpuscular Hemoglobin 36.6 pg (25.0-34.0); Mean Corpuscular Hgb Conc 34.5 g/dL (32.0-36.0); Mean Corpuscular Volume 106.1 fL (80.0-100.0); Mean Platelet Volume 10.2 fL (9.4-12.4); Platelet Count 67 K/uL (130-400); RDW Coefficient of Variation 16.4 % (11.5-14.5); RDW Standard Deviation 62.9 fL (36.4-46.3); Red Blood Count 2.46 M/uL (4.70-6.10); White Blood Count 4.04 K/ul (4.8-10.8)
[2024-07-21 08:41] LABS: BUN Creatinine Ratio 7.8 (10-20); Creatinine Clr Calc Pharmacy 102.7 ml/min; Est GFR (African American) 92.8 ml/min; Est GFR (Non-African American) 80.1 ml/min; Magnesium 1.9 mg/dl (1.7-2.4); Potassium 3.4 mmol/L (3.5-5.1)
--- NOTE | 2024-07-21 09:29 | Pulmonary Consultation ---
Date of Consultation July 21, 2024 Assessment & Plan (1) Pleural effusion: Plan Impression: 58-year-old male with cirrhosis due to GONZALES with known ascites now with pleural effusion which is likely hepatic hydrothorax. He has no worrisome symptoms and is asymptomatic at this point time. In addition he has thrombocytopenia and an elevated INR which would make thoracentesis somewhat complicated. Recommendations: 1. Pleural effusion: Discussed with patient. 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 Management strategies would include optimization of diuretics and in severe cases, consideration for TIPS procedure if refractory to diuretics. There is no worrisome symptoms to suggest the patient needs thoracentesis at this point in time. If he were to require thoracentesis would need his platelets above 50,000 at least and INR less than 1.5. 2. Management of the patient's other medical issues is deferred to the primary admitting service. Pulmonary will sign off. Feel free to contact us with questions or concerns History of Present Illness Attending Physician: Karsten Delgado MD History of Present Illness Asked by hospitalist to evaluate this patient with pleural effusion. History is obtained from discussion with patient as well as review of electronic medical record. Patient is a 58-year-old male with a history of cirrhosis due to nonalcoholic steatohepatitis. He undergoes serial paracentesis in the outpatient setting. He was admitted 07/18 with complaints of obstipation and abdominal pain. He has a history of aortic stenosis as well. He was seen by GI and a bowel regiment was recommended as well as serial paracentesis. Last evening the patient developed some abdominal/chest discomfort and a CT angiogram was ordered to evaluate for PE. He has tense ascites and a left-sided pleural effusion as well. Pulmonary was consulted for evaluation of the effusion. He has not had thoracentesis in the past. Patient currently reports that he is having no respiratory issues at all. He is on room air. He denies any chest discomfort. No history of trauma. No fevers chills or night sweats or other infectious symptoms. He is scheduled undergo paracentesis with interventional radiology in the a.m.. Allergies Allergy/AdvReac Type Severity Reaction Status Date / Time aspirin AdvReac Intermediate NOSE Verified 06/29/24 20:54 BLEEDS--IF TAKES REGULARLY salicylates AdvReac Intermediate NOSE BLEEDS Verified 06/29/24 20:54 Home Medications Medication Instructions Recorded Confirmed Type allopurinol 300 mg tablet 300 mg PO QAM 06/03/19 07/18/24 History metformin 500 mg tablet 500 mg PO BIDM 06/03/19 07/18/24 History multivitamin 1 tab PO QAM 06/03/19 07/18/24 History atorvastatin 20 mg tablet 20 mg PO QAM 04/21/21 07/18/24 History ascorbic acid (vitamin C) 1,000 mg 1 g PO QAM 08/27/23 07/18/24 History tablet (Vitamin C) tamsulosin 0.4 mg capsule 0.4 mg PO DAILY 10/04/23 07/18/24 History rifaximin 550 mg tablet (Xifaxan) 550 mg PO BID 01/02/24 07/18/24 History omeprazole 20 mg capsule,delayed 20 mg PO DAILYBB 02/27/24 07/18/24 History release mupirocin 2 % topical ointment 1 applic EXT TID PRN Wound Care 06/21/24 07/18/24 History potassium chloride 10 mEq 20 meq (2 x 10 mEq) PO BID 30 days 06/28/24 07/18/24 Rx tablet,extended release(part/cryst) #120 tabs Lactobacillus acidophilus 10 10,000 mmu cells PO TID 06/29/24 07/18/24 History billion cell capsule (Probiotic) insulin glargine 100 unit/mL (3 10 unit subcut DAILY 06/29/24 07/18/24 History mL) subcutaneous pen (Lantus Solostar U-100 Insulin) midodrine 2.5 mg tablet 5 mg (2 x 2.5 mg) PO TIDM #60 tabs 07/06/24 07/18/24 Rx sodium chloride 1,000 mg soluble 1,000 mg PO BID 30 days #60 tabs 07/06/24 07/18/24 Rx tablet torsemide 20 mg tablet 20 mg PO QAM #30 tabs 07/06/24 07/18/24 Rx urea 15 gram oral powder packet 15 g PO BID #8 ea 07/06/24 07/18/24 Rx (Ure-Na) lactulose 20 gram/30 mL oral 30 g PO TID Cirrhosis 07/18/24 07/18/24 History solution Patient History Medical History Ureterolithiasis Hepatocellular carcinoma s/p IR embolization Pulmonary hypertension Diabetes mellitus NAFLD (nonalcoholic fatty liver disease) Chronic hyponatremia Dizziness r/t the cirrhosis - using a cane at this time. "if i get up to fast". S/P abdominal paracentesis Fracture of rib of right side 2013 Anaplasmosis 2019 Acute hepatic encephalopathy Cardiac murmur HX Hypertension Right rib fracture hx ~. Surgical History History of esophagogastroduodenoscopy (EGD) History of colonoscopy Family History Mother History of colonoscopy Brother Family history of diabetes mellitus Brother Family history of diabetes mellitus Grandmother (Paternal) Family history of diabetes mellitus Other No family history of adverse response to anesthesia Social History Smoking Status: Never smoker Tobacco Type: Smokeless Tobacco (Dip or Chew) Second Hand Exposure: No; Do You Dip or Chew Tobacco: Yes; Hx Alcohol Use: No Hx Substance Use: No Preferred Language: Albanian Communication Ability: Effective Shell Sorter Required: No Beliefs That Will Affect Care: None marital status: Single Current Living Situation: Family Current Living Situation Comment: With brother and mother Other Information That Helps Us Care for You: No Feels Safe at Home: Yes Safety Concerns: Feels Safe At This Time Assistive Devices: Cane, Scooter/Electric Scooter and Walker Review of Systems Review of Systems: Please refer to hospitalist note. No additions or deletions Physical Exam Physical Exam: General: awake, alert, NAD HEENT: PERRL, no scleral icterus noted, moist oral mucosa Neck: trachea midline Heart: RRR, +systolic murmur Lungs: CTA bilaterally Abdomen: softly distended, +BS, non-tender, flank dullness to percussion Extremities: no pedal edema, distal pulses intact and equal Neurologic: moving all extremities, mildly slowed speech, some difficulty recalling recent events/medications Results & Data Results & Data Vital Signs (Past 12 Hours) Vital Signs Temp Pulse Pulse Resp BP Pulse Ox O2 Del Method 07/21/24 07:30 36.4 C L 107 H 20 93/57 L 99 Room Air 07/21/24 07:22 111 H 07/21/24 03:33 36.7 C 109 H 20 94/55 L 94 Room Air 07/20/24 23:32 36.8 C 122 H 22 107/49 L 98 Room Air 07/20/24 21:44 117 H Critical Care Results & Data Vital Signs (Past 12 Hours) Vital Signs Temp Pulse Pulse Resp BP Pulse Ox O2 Del Method 07/21/24 07:30 36.4 C L 107 H 20 93/57 L 99 Room Air 07/21/24 07:22 111 H 07/21/24 03:33 36.7 C 109 H 20 94/55 L 94 Room Air 07/20/24 23:32 36.8 C 122 H 22 107/49 L 98 Room Air 07/20/24 21:44 117 H Lab & Micro Results (Past 24 Hours) RBC 2.46 M/uL (4.70-6.10) L 07/21/24 WBC 4.04 K/ul (4.8-10.8) L 07/21/24 Hgb 9.0 g/dl (14.0-18.0) L 07/21/24 Hct 26.1 % (42.0-52.0) L 07/21/24 MCV 106.1 fL (80.0-100.0) H 07/21/24 MCH 36.6 pg (25.0-34.0) H 07/21/24 MCHC 34.5 g/dL (32.0-36.0) 07/21/24 RDW Standard Deviation 62.9 fL (36.4-46.3) H 07/21/24 RDW Coefficient of Variation 16.4 % (11.5-14.5) H 07/21/24 Plt Count 67 K/uL (130-400) L 07/21/24 MPV 10.2 fL (9.4-12.4) 07/21/24 Na 131 mmol/L (136-145) L 07/21/24 K 3.4 mmol/L (3.5-5.1) L 07/21/24 Cl 100 mmol/L (98-107) 07/21/24 CO2 26 mmol/L (21-32) 07/21/24 Anion Gap 5 (3-11) 07/21/24 BUN 8 mg/dl (6-23) 07/21/24 Creatinine 1.02 mg/dl (0.6-1.4) 07/21/24 Estimated GFR ( Amer) 92.8 ml/min 07/21/24 Estimated GFR (Non-Af Amer) 80.1 ml/min 07/21/24 BUN/Creatinine Ratio 7.8 (10-20) L 07/21/24 Glu 127 mg/dl (70-99(Fasting)) H 07/21/24 Ca 8.0 mg/dl (8.6-10.3) L 07/21/24 Mg 1.9 mg/dl (1.7-2.4) 07/21/24 08:04 Calcium Level 8.0 mg/dl (8.6-10.3) L 07/21/24 08:04 Prothromb Time International Ratio 1.7 (0.9-1.1) H 07/20/24 23 :44 Diagnostic Findings (Past 24 Hours) Chest X-Ray 07/20/24 23:38 XR chest 1V portable CLINICAL HISTORY: Shortness of breath. COMPARISON STUDY: Chest CT June 01, 2024. Chest radiograph July 18, 2024. FINDINGS: There is no pneumothorax. A moderate left pleural effusion is noted. There is no right pleural effusion. There is pulmonary vascular congestion. Cardiomediastinal silhouette is normal. IMPRESSION: 1. Moderate left pleural effusion which has developed since prior exam. 2. Pulmonary vascular congestion. ACT 112: Negative or not required by law. Electronically signed by: Issac Rankin M.D. 07/21/2024 8:03 AM Abdomen/Pelvis CT 07/20/24 23:49 Exam(s): CT ABDOMEN + PELVIS With Contrast IV Amt: 119 cc's optiray 320 EXAM: CT Abdomen and Pelvis With Intravenous Contrast CLINICAL HISTORY: Reason for exam: abd pain. TECHNIQUE: Axial computed tomography images of the abdomen and pelvis with intravenous contrast. CTDI is 105.95 mGy and DLP is 2669.11 mGy-cm. Automated exposure control was utilized for the study. A dose lowering technique was utilized adhering to the principles of ALARA. CONTRAST: Patient received 119 cc's optiray 320 of IV contrast COMPARISON: No relevant prior studies available. FINDINGS: Lung bases: Unremarkable. No mass. No consolidation. Pleural space: Moderate LEFT pleural effusion. ABDOMEN: Liver: Calcification in the posterior RIGHT hepatic lobe measures 2 cm. Gallbladder and bile ducts: Unremarkable. No calcified stones. No ductal dilation. Pancreas: Unremarkable. No mass. No ductal dilation. Spleen: Unremarkable. No splenomegaly. Adrenals: Unremarkable. No mass. Kidneys and ureters: Unremarkable. No solid mass. No hydronephrosis. Stomach and bowel: Mild fluid-filled small bowel with mild wall thickening, concerning for mild enteritis versus spontaneous bacterial peritonitis. No obstruction. PELVIS: Appendix: No findings to suggest acute appendicitis. Bladder: Unremarkable. No mass. Reproductive: Unremarkable as visualized. ABDOMEN and PELVIS: Intraperitoneal space: Moderate abdominal ascites, which extends into an umbilical hernia. No free air. Bones/joints: No acute fracture. No dislocation. Soft tissues: See above. Vasculature: Unremarkable. No abdominal aortic aneurysm. Lymph nodes: Unremarkable. No enlarged lymph nodes. IMPRESSION: 1. Moderate abdominal ascites, which extends into an umbilical hernia. 2. Mild fluid-filled small bowel with mild wall thickening, concerning for mild enteritis versus spontaneous bacterial peritonitis. 3. Moderate LEFT pleural effusion. Electronically signed by: Jakob Marrero MD 07/21/24 02:40 AM Chest CTA 07/20/24 23:49 Exam(s): CTA CHEST IV Amt: 119 cc's optiray 320 EXAM: CT Angiography Chest With Intravenous Contrast CLINICAL HISTORY: Reason for exam: rib pain/sob. TECHNIQUE: Axial computed tomographic angiography images of the chest with intravenous contrast. CTDI is 105.95 mGy and DLP is 2669.11 mGy-cm. Automated exposure control was utilized for the study. A dose lowering technique was utilized adhering to the principles of ALARA. MIP reconstructed images were created and reviewed. COMPARISON: No relevant prior studies available. FINDINGS: Pulmonary arteries: Unremarkable. No pulmonary embolism. Aorta: No acute findings. No thoracic aortic aneurysm. Lungs: See below. Pleural space: Moderate LEFT pleural effusion with subjacent airspace consolidation, likely atelectasis. Heart: Unremarkable. No cardiomegaly. No significant pericardial effusion. No evidence of RV dysfunction. Bones/joints: No acute fracture. No dislocation. Soft tissues: Unremarkable. Lymph nodes: Unremarkable. No enlarged lymph nodes. Intraperitoneal space: Abdominal ascites. IMPRESSION: 1. No pulmonary embolism. 2. Moderate LEFT pleural effusion with subjacent airspace consolidation, likely atelectasis. 3. Abdominal ascites. Electronically signed by: Jakob Marrero MD 07/21/24 02:18 AM I & O Totals 24 Hours 07/20/24 07/21/24 07/22/24 06:59 06:59 06:59 Intake Total 710 / 710 1050 / 1050 120 / 120 Output Total Balance 707 / 707 1047 / 1047 120 / 120 Cumulative 07/18/24 11:17 thru 07/21/24 08:00 Intake Total 2880 Output Total 182 Balance 2698 RT Ventilator Mngmt (Last Documented) Ventilator Ordered Settings Respiratory Rate 20 07/21/24 07:30 Ventilator - PT Measurements Respiratory Rate 20 PG Care Time/CCT Total # of Minutes Spent Total Time Spent with Patient: Total time spent is greater than 50% in coordination of care (as documented) at patient's floor/unit and/or counseling patient: Coding Level of Care Code 21991 IN/OBS CONSULT LVL 3,45M Diagnoses Pleural effusion J90
--- NOTE | 2024-07-21 10:12 | XRay Report ---
KUB CLINICAL HISTORY: Ileus. COMPARISON STUDY: KUB July 20, 2024. CT of the abdomen and pelvis performed earlier today. FINDINGS: The bowel gas pattern is normal. The amount of stool is within normal limits. Incidental no te is made of contrast within the bladder from recent contrast-enhanced CT. IMPRESSION: Normal bowel gas pattern. ACT 112: Negative or not required by law. Electronically signed by: Issac Rankin M.D. 07/21/2024 10:11 AM
--- NOTE | 2024-07-21 12:23 | Electrocardiogram Report ---
Test Reason : Blood Pressure : */* mmHG Vent. Rate : 122 BPM Atrial Rate : 122 BPM P-R Int : 134 ms QRS Dur : 80 ms QT Int : 330 ms P-R-T Axes : 52 65 96 degrees QTcB Int : 470 ms Sinus tachycardia Otherwise normal ECG When compared with ECG of 19-Jul-2024 08:48, Vent. rate has increased by 42 bpm Confirmed by Rehan Brown ([id number]) on 07/21/2024 12:23:34 PM Referred By: REFERRED SELF Confirmed By: Rehan Brown
--- NOTE | 2024-07-21 16:04 | Hospitalist Progress Note ---
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 Work- up in the ED showed moderate fecal retention, mild to moderate ascites. Suspect both are contributed to patient's bloating and discomfort. Additionally, it is unclear how compliant patient has been with recommended medications as there seems to be some confusion on what doses he has been taking of several medications, specifically the lactulose and midodrine, since discharge earlier this month. Constipation Moderate fecal retention/Ileus --KUB:Nonobstructive bowel gas pattern. Moderate fecal retention. Continue lactulose, added bowel regimen in edition Given ascites, abdominal paracentesis might help with constipation GI on board Repeat KUB showed resolution of ileus Encouraged to ambulate Hypokalemia Hypomagnesemia Replete electrolytes as needed Monitor (2) Abdominal pain: Plan: Likely multifactorial due to constipation and ascites (3) 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: Plan: Pt has been evaluated by transplant clinic in [place] - pt is not currently listed, per pt due to aortic stenosis, chart also notes insurance/financial concerns --CT ABD: Small to moderate amount of ascites. Continue lactulose/Xifaxan GI on board Plan for abdominal paracentesis tomorrow by IR (4) Ascites: Plan: Recurrent issue - last paracentesis was 07/09 Continue torsemide Management as above Needs paracentesis prior to discharge Left pleural effusion Likely hepatic hydrothorax Pulmonology consulted Monitor volume status closely (5) Hepatic encephalopathy: Plan: No signs of encephalopathy currently Continue Lactulose/Xifaxan (6) Diabetes mellitus, type 2: Plan: Insulin sliding scale while admitted Diabetic diet BSG ACHS (7) Hyponatremia: Plan: Chronic hyponatremia Sodium levels at baseline Sodium 131 today Continue fluid restriction, urea, salt tablets Plan DVT Px: SCDs Re: thrombocytopenia CODE STATUS Full code Admission and Anticipated Discharge Date Admission Date: July 18, 2024 Subjective Patient is seen and examined at bedside Reported abdominal pain overnight associated with shortness of breath Feels better this morning Abdominal pain improved Still has significant abdominal distention Denies any shortness of breath, chest pain, nausea, vomiting Review of Systems Review of Systems: All systems reviewed & are unremarkable except as noted in Subjective Physical Exam Physical Exam: Physical Exam: Vitals signs as noted above General Appearance:Obese, no apparent distress Head: normocephalic, Atraumatic Eyes: normal inspection, EOMI Neck: supple, Trachea midline Respiratory/Chest: Normal breath sounds, CTA, No accessory muscle use Cardiovascular: S1, S2, + murmur Abdomen/GI:Soft, Non tender, significant distended, Bowel sounds present Extremities/Musculoskeletal:normal inspection, Trace edema Neurologic/Psych:AAOX3, grossly no focal neurological deficits Skin: normal color, warm,+Jaundice Results & Data Results & Data Vital Signs (Past 12 Hours) Vital Signs Temp Pulse Pulse Resp BP Pulse Ox O2 Del Method 07/21/24 15:00 36.6 C 105 H 16 95/57 L 97 Room Air 07/21/24 14:45 103 H 07/21/24 11:00 36.5 C 108 H 16 119/71 99 Room Air 07/21/24 07:30 36.4 C L 107 H 20 93/57 L 99 Room Air 07/21/24 07:22 111 H Laboratory Results Short CBC 07/21/24 Range/Units 08:04 WBC 4.04 L (4.8-10.8) K/ul Hgb 9.0 L (14.0-18.0) g/dl Hct 26.1 L (42.0-52.0) % Plt Count 67 L (130-400) K/uL BMP 07/21/24 08:04 Sodium 131 L Potassium 3.4 L Chloride 100 Carbon Dioxide 26 BUN 8 Creatinine 1.02 Glucose 127 H Calcium 8.0 L (1) Constipation Constipation type: unspecified constipation type Qualified Code(s): K59.00 - Constipation, unspecified (2) Abdominal pain Abdominal location: generalized Qualified Code(s): R10.84 - Generalized abdominal pain (6) Diabetes mellitus, type 2 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
[2024-07-21] MEDS: IBUPROFEN 200 MG TAB PO ONE (17:43)
[2024-07-22 05:58] LABS: Hematocrit (blood only) 25.5 % (42.0-52.0); Hemoglobin 8.7 g/dl (14.0-18.0); Mean Corpuscular Hemoglobin 36.3 pg (25.0-34.0); Mean Corpuscular Hgb Conc 34.1 g/dL (32.0-36.0); Mean Corpuscular Volume 106.3 fL (80.0-100.0); Mean Platelet Volume 10.1 fL (9.4-12.4); Platelet Count 61 K/uL (130-400); RDW Coefficient of Variation 16.1 % (11.5-14.5); RDW Standard Deviation 63.2 fL (36.4-46.3); White Blood Count 3.23 K/ul (4.8-10.8)
[2024-07-22 06:19] LABS: BUN Creatinine Ratio 7.6 (10-20); Calcium 8.4 mg/dl (8.6-10.3); Creatinine Clr Calc Pharmacy 99.1 ml/min; Est GFR (African American) 89.6 ml/min; Est GFR (Non-African American) 77.3 ml/min; Magnesium 1.8 mg/dl (1.7-2.4); Potassium 3.4 mmol/L (3.5-5.1)
[2024-07-22 10:13] LABS: Albumin Peritoneal Fluid < 1.5 gm/dl; Amylase Peritoneal Fluid 12 U/L
[2024-07-22 10:15] LABS: LDH Peritoneal Fluid 28 U/L; Total Protein Peritoneal Fluid < 3.0 gm/dl
[2024-07-22] MEDS: POTASSIUM CHLORIDE CRTAB 20 MEQ TABCR PO ONE (10:18)
[2024-07-22 10:55] LABS: Appearance Peritoneal Fluid Slightly Hazy; Color Peritoneal Fluid Pale Yellow; RBC Peritoneal Fluid Auto < 2000 /uL; WBC Peritoneal Fluid Auto 182 /ul (0-300)
[2024-07-22 11:15] VITALS: RESP 20; TEMP 97.9; O2SAT 94
[2024-07-22 11:36] LABS: Lymphocytes, Fluid 24 %; Mono,Macrophage,Mesothelial 52 %; Neutrophils, Fluid 24 %
--- NOTE | 2024-07-22 12:24 | Pulmonology Progress Note ---
Date of Service July 22, 2024 Assessment & Plan (1) Pleural effusion: (2) 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: (3) Cirrhosis: Plan Impression: 58-year-old male with cirrhosis due to GONZALES with known ascites now with pleural effusion which is likely hepatic hydrothorax. He has no worrisome symptoms and is asymptomatic at this point time. In addition he has thrombocytopenia and an elevated INR which would make thoracentesis somewhat complicated. Recommendations: 1. Pleural effusion: Patient is feeling much better status post paracentesis. Recommend follow-up with hepatology. No role for thoracentesis at this time. Pulmonary will sign off at this time. Thank you for the consult. Please call with questions. Admission and Anticipated Discharge Date Admission Date: July 18, 2024 Subjective Patient is status post paracentesis of 5 L today. Feeling much better. Denies any shortness of breath. Review of Systems Review of Systems: All systems reviewed & are unremarkable except as noted in HPI & below Physical Exam Physical Exam: General: awake, alert, NAD HEENT: PERRL, no scleral icterus noted, moist oral mucosa Neck: trachea midline Heart: RRR, +systolic murmur Lungs: CTA bilaterally Abdomen: softly distended, +BS, non-tender, flank dullness to percussion Extremities: no pedal edema, distal pulses intact and equal Neurologic: moving all extremities, mildly slowed speech, some difficulty recalling recent events/medications Results & Data Results & Data Vital Signs (Past 12 Hours) Vital Signs Temp Pulse Pulse Resp BP Pulse Ox O2 Del Method 07/22/24 11:14 36.6 C 97 H 20 96/57 L 94 Room Air 07/22/24 08:09 36.8 C 102 H 18 110/66 98 Room Air 07/22/24 08:02 Room Air 07/22/24 07:00 98 H 07/22/24 03:47 36.7 C 100 H 18 100/63 96 Room Air PG Care Time/CCT Total # of Minutes Spent Total Time Spent with Patient: Total time spent is greater than 50% in coordination of care (as documented) at patient's floor/unit and/or counseling patient: Coding Level of Care Code 82780 SUB INP/OBS CARE 2/35MIN Diagnoses Pleural effusion J90 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 Cirrhosis K74.60
--- NOTE | 2024-07-22 13:51 | Hospitalist Progress Note ---
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 Work- up in the ED showed moderate fecal retention, mild to moderate ascites. Suspect both are contributed to patient's bloating and discomfort. Additionally, it is unclear how compliant patient has been with recommended medications as there seems to be some confusion on what doses he has been taking of several medications, specifically the lactulose and midodrine, since discharge earlier this month. Constipation Moderate fecal retention/Ileus --KUB:Nonobstructive bowel gas pattern. Moderate fecal retention. Continue lactulose, added bowel regimen in edition Given ascites, abdominal paracentesis might help with constipation GI on board Repeat KUB showed resolution of ileus Encouraged to ambulate Resolved Hypokalemia Hypomagnesemia Replete electrolytes as needed Monitor (2) Abdominal pain: Plan: Likely multifactorial due to constipation and ascites (3) 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: Plan: Pt has been evaluated by transplant clinic in [place] - pt is not currently listed, per pt due to aortic stenosis, chart also notes insurance/financial concerns --CT ABD: Small to moderate amount of ascites. Continue lactulose/Xifaxan GI on board S/P abdominal paracentesis Acetic fluid studies pending (4) Ascites: Plan: Recurrent issue - last paracentesis was 07/09 Continue torsemide Management as above Left pleural effusion Likely hepatic hydrothorax Appreciate pulmonology input Monitor volume status closely Saturating well on room air (5) Hepatic encephalopathy: Plan: No signs of encephalopathy currently Continue Lactulose/Xifaxan (6) Diabetes mellitus, type 2: Plan: Insulin sliding scale while admitted Diabetic diet BSG ACHS (7) Hyponatremia: Plan: Chronic hyponatremia Sodium levels at baseline Sodium 136 today Continue fluid restriction, urea, salt tablets Plan DVT Px: SCDs Re: thrombocytopenia CODE STATUS Full code Disposition Home Admission and Anticipated Discharge Date Admission Date: July 18, 2024 Subjective Patient is seen and examined at bedside Had abdominal paracentesis earlier today States feeling a lot better today Abdominal pain resolved Dyspnea much improved No new complaints Denies any chest pain, nausea, vomiting Review of Systems Review of Systems: All systems reviewed & are unremarkable except as noted in Subjective Physical Exam Physical Exam: Physical Exam: Vitals signs as noted above General Appearance:Obese, no apparent distress Head: normocephalic, Atraumatic Eyes: normal inspection, EOMI Neck: supple, Trachea midline Respiratory/Chest: Normal breath sounds, CTA, No accessory muscle use Cardiovascular: S1, S2, + murmur Abdomen/GI:Soft, Non tender, significant distended, Bowel sounds present Extremities/Musculoskeletal:normal inspection, Trace edema Neurologic/Psych:AAOX3, grossly no focal neurological deficits Skin: normal color, warm,+Jaundice Results & Data Results & Data Vital Signs (Past 12 Hours) Vital Signs Temp Pulse Pulse Resp BP Pulse Ox O2 Del Method 07/22/24 11:14 36.6 C 97 H 20 96/57 L 94 Room Air 07/22/24 08:09 36.8 C 102 H 18 110/66 98 Room Air 07/22/24 08:02 Room Air 07/22/24 07:00 98 H 07/22/24 03:47 36.7 C 100 H 18 100/63 96 Room Air Laboratory Results Short CBC 07/22/24 Range/Units 05:28 WBC 3.23 L (4.8-10.8) K/ul Hgb 8.7 L (14.0-18.0) g/dl Hct 25.5 L (42.0-52.0) % Plt Count 61 L (130-400) K/uL BMP 07/22/24 05:28 Sodium 136 Potassium 3.4 L Chloride 103 Carbon Dioxide 27 BUN 8 Creatinine 1.05 Glucose 113 H Calcium 8.4 L (1) Constipation Constipation type: unspecified constipation type Qualified Code(s): K59.00 - Constipation, unspecified (2) Abdominal pain Abdominal location: generalized Qualified Code(s): R10.84 - Generalized abdominal pain (6) Diabetes mellitus, type 2 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
--- NOTE | 2024-07-22 13:57 | Discharge Summary ---
Date of Service July 22, 2024 Admission HPI Per Admitting Provider This is a 58 y/o male with liver cirrhosis secondary to GONZALES, recurrent ascites, hx hepatic encephalopathy, hx HCC, insulin-requiring DM2, moderate aortic stenosis, HTN, and other history as outlined below who presented to the ED today with progressive abdominal distention with associated discomfort. Pt has been admitted multiples times in the last year with most recent admission being 06/30- 07/06 for orthostatic hypotension and hyponatremia. His midodrine dose was increased, torsemide dose was adjusted to 20 mg daily, continued on salt tablets TID. A 1500 ml fluid restriction was recommended but pt seems to have had difficulty complying with this recommendation. He reports that he underwent a paracentesis last week - records reviewed, pt underwent paracentesis on 07/09 with removal of 5.6 L of fluid. Pt reports he felt well initially after the paracentesis. However, three days ago he noted some mild bloating. This has continued to worsen since it started, now has associated discomfort. This morning, he developed dry heaves. His appetite has been decreased with limited oral intake. He also notes constipation despite taking lactulose TID - on Monday (3 days ago), he had two normal BMs. No BM on Monday or Monday. Today, he has had two small BMs in the ED after receiving milk of mag. He denies fevers, chills, chest pain, shortness of breath, syncope, dizziness. Upon review of his medication list, pt reports taking 45 ml (not recommended 67.5 ml) of lactulose 2-3x/day - may miss doses due to GI upset/nausea, especially with the potassium. He is also unsure how often he is taking the midodrine. He noted significant weakness and fatigue after discharge from the hospital but this has gradually been improving - now able to ambulate with a cane, which is his baseline (prior was using a walker). Pt attempted to call radiology this AM to schedule another paracentesis but was told that they had no openings today. Admission Exam Per Admitting Provider General: awake, alert, NAD HEENT: PERRL, no scleral icterus noted, moist oral mucosa Neck: trachea midline Heart: RRR, +systolic murmur Lungs: CTA bilaterally Abdomen: softly distended, +BS, non-tender, flank dullness to percussion Extremities: no pedal edema, distal pulses intact and equal Neurologic: moving all extremities, mildly slowed speech, some difficulty r ecalling recent events/medications Principal Diagnosis Ascites Hypokalemia Hypomagnesemia Constipation Discharge Data Allergies Allergy/AdvReac Type Severity Reaction Status Date / Time aspirin AdvReac Intermediate NOSE Verified 06/29/24 20:54 BLEEDS--IF TAKES REGULARLY salicylates AdvReac Intermediate NOSE BLEEDS Verified 06/29/24 20:54 Consultations 07/18/24 16:15 ED Decision to Admit Stat 07/18/24 20:52 Consult Gastroenterology Routine 07/21/24 07:19 Consult Pulmonology Routine Procedures Performed Laboratory Results WBC 3.23 K/ul (4.8-10.8) L 07/22/24 05:28 RBC 2.40 M/uL (4.70-6.10) L 07/22/24 05:28 Hgb 8.7 g/dl (14.0-18.0) L 07/22/24 05:28 Hct 25.5 % (42.0-52.0) L 07/22/24 05:28 MCV 106.3 fL (80.0-100.0) H 07/22/24 05:28 MCH 36.3 pg (25.0-34.0) H 07/22/24 05:28 MCHC 34.1 g/dL (32.0-36.0) 07/22/24 05:28 RDW Std Deviation 63.2 fL (36.4-46.3) H 07/22/24 05:28 RDW Coeff of [place] 16.1 % (11.5-14.5) H 07/22/24 05:28 Plt Count 61 K/uL (130-400) L 07/22/24 05:28 MPV 10.1 fL (9.4-12.4) 07/22/24 05:28 Immature Gran % (Auto) 0.4 % 07/19/24 05:19 Neut % (Auto) 65.1 % 07/19/24 05:19 Lymph % (Auto) 10.5 % 07/19/24 05:19 [place] % (Auto) 17.2 % 07/19/24 05:19 Eos % (Auto) 5.1 % 07/19/24 05:19 Baso % (Auto) 1.7 % 07/19/24 05:19 Neut # (Auto) 3.55 K/uL (1.40-6.50) 07/19/24 05:19 Lymph # (Auto) 0.57 K/uL (1.20-3.40) L 07/19/24 05:19 [place] # (Auto) 0.94 K/uL (0.11-0.59) H 07/19/24 05:19 Eos # (Auto) 0.28 K/uL (0.00-0.50) 07/19/24 05:19 Baso # (Auto) 0.09 K/uL (0.00-0.20) 07/19/24 05:19 Immature Gran # (Auto) 0.02 K/uL (0.01-0.20) 07/19/24 05:19 PT 17.9 Seconds (9.0-12.0) H 07/20/24 23:44 INR 1.7 (0.9-1.1) H 07/20/24 23:44 APTT 36 Seconds (21-31) H 07/20/24 23:44 PTT Ratio 1.3 07/20/24 23:44 Sodium 136 mmol/L (136-145) 07/22/24 05:28 Potassium 3.4 mmol/L (3.5-5.1) L 07/22/24 05:28 Chloride 103 mmol/L (98-107) 07/22/24 05:28 Carbon Dioxide 27 mmol/L (21-32) 07/22/24 05:28 Anion Gap 6 (3-11) 07/22/24 05:28 BUN 8 mg/dl (6-23) 07/22/24 05:28 Creatinine 1.05 mg/dl (0.6-1.4) 07/22/24 05:28 Est Cr Clr Drug Dosing 99.1 ml/min 07/22/24 05:28 Est GFR ( Amer) 89.6 ml/min 07/22/24 05:28 Est GFR (Non-Af Amer) 77.3 ml/min 07/22/24 05:28 BUN/Creatinine Ratio 7.6 (10-20) L 07/22/24 05:28 Glucose 113 mg/dl (70-99(Fasting)) H 07/22/24 05:28 POC Glucose 145 mg/dl (70-99) H 07/22/24 12:02 Calcium 8.4 mg/dl (8.6-10.3) L 07/22/24 05:28 Magnesium 1.8 mg/dl (1.7-2.4) 07/22/24 05:28 Total Bilirubin 4.0 mg/dl (0.2-1.0) H 07/18/24 11:44 AST 59 U/L (13-39) H 07/18/24 11:44 ALT 40 U/L (7-52) 07/18/24 11:44 Alkaline Phosphatase 130 U/L (34-104) H 07/18/24 11:44 Ammonia 42.0 umol/L (18-72) 07/18/24 13:35 Troponin I High Sens 10.8 pg/ml (0-20) 07/20/24 23:44 Total Protein 6.2 gm/dl (6.0-8.3) 07/18/24 11:44 Albumin 2.6 gm/dl (3.4-5.0) L 07/18/24 11:44 Globulin 3.6 gm/dl (2.5-4.0) 07/18/24 11:44 Albumin/Globulin Ratio 0.7 (0.9-2) L 07/18/24 11:44 Lipase 55 U/L (11-82) 07/18/24 11:44 Urine Color Dark Yellow 07/19/24 01:00 Urine Appearance Clear (Clear) 07/19/24 01:00 Urine pH 5.5 (4.5-7.5) 07/19/24 01:00 Ur Specific [place] 1.022 (1.000-1.030) 07/19/24 01:00 Urine Protein Negative (Negative) 07/19/24 01:00 Urine Glucose (UA) Negative (Negative) 07/19/24 01:00 Urine Ketones Trace (Negative) H 07/19/24 01:00 Urine Blood Negative (Negative) 07/19/24 01:00 Urine Nitrite Negative (Negative) 07/19/24 01:00 Urine Bilirubin Negative (Negative) 07/19/24 01:00 Urine Urobilinogen Negative (Negative) 07/19/24 01:00 Ur Leukocyte Esterase Trace (Negative) H 07/19/24 01:00 Urine WBC (Auto) 0-5 /hpf (0-5) 07/19/24 01:00 Urine RBC (Auto) 0-2 /hpf (0-2) 07/19/24 01:00 U Hyaline Cast (Auto) 0-2 /lpf (0-2) 07/19/24 01:00 U Epithel Cells (Auto) 0-2 /hpf (0-2) 07/19/24 01:00 Urine Bacteria (Auto) None Seen (None Seen) 07/19/24 01:00 Fluid Neutrophils % 24 % 07/22/24 09:37 Fluid Lymphocytes % 24 % 07/22/24 09:37 Fluid [place] % 52 % 07/22/24 09:37 Fluid Comment 07/22/24 09:37 Peritoneal Color Pale Yellow 07/22/24 09:37 Peritoneal Appearance Slightly Hazy 07/22/24 09:37 Peritoneal WBC (Auto) 182 /ul (0-300) 07/22/24 09:37 Peritoneal RBC (Auto) < 2000 /uL 07/22/24 09:37 Peritoneal Tot Protein < 3.0 gm/dl 07/22/24 09:37 Peritoneal Albumin < 1.5 gm/dl 07/22/24 09:37 Peritoneal LDH 28 U/L 07/22/24 09:37 Peritoneal Amylase 12 U/L 07/22/24 09:37 Impressions Abdomen Ultrasound 07/18/24 14:55 US abdomen ltd ascites CLINICAL HISTORY: abd distention, hx ascites COMPARISON STUDY: Abdomen and pelvis CT 06/29/2024. FINDINGS: There is a small to moderate amount of scattered ascites most pronounced within the right upper quadrant. Nodular contour to the liver consistent with cirrhosis. There is an umbilical hernia containing fluid. IMPRESSION: Small to moderate amount of ascites. ACT 112: Negative or not required by law. Electronically signed by: Huber Alvarado M.D. 07/18/2024 4:07 PM Chest X-Ray 07/20/24 23:38 XR chest 1V portable CLINICAL HISTORY: Shortness of breath. COMPARISON STUDY: Chest CT June 01, 2024. Chest radiograph July 18, 2024. FINDINGS: There is no pneumothorax. A moderate left pleural effusion is noted. There is no right pleural effusion. There is pulmonary vascular congestion. Cardiomediastinal silhouette is normal. IMPRESSION: 1. Moderate left pleural effusion which has developed since prior exam. 2. Pulmonary vascular congestion. ACT 112: Negative or not required by law. Electronically signed by: Issac Rankin M.D. 07/21/2024 8:03 AM Abdomen/Pelvis CT 07/20/24 23:49 Exam(s): CT ABDOMEN + PELVIS With Contrast IV Amt: 119 cc's optiray 320 EXAM: CT Abdomen and Pelvis With Intravenous Contrast CLINICAL HISTORY: Reason for exam: abd pain. TECHNIQUE: Axial computed tomography images of the abdomen and pelvis with intravenous contrast. CTDI is 105.95 mGy and DLP is 2669.11 mGy-cm. Automated exposure control was utilized for the study. A dose lowering technique was utilized adhering to the principles of ALARA. CONTRAST: Patient received 119 cc's optiray 320 of IV contrast COMPARISON: No relevant prior studies available. FINDINGS: Lung bases: Unremarkable. No mass. No consolidation. Pleural space: Moderate LEFT pleural effusion. ABDOMEN: Liver: Calcification in the posterior RIGHT hepatic lobe measures 2 cm. Gallbladder and bile ducts: Unremarkable. No calcified stones. No ductal dilation. Pancreas: Unremarkable. No mass. No ductal dilation. Spleen: Unremarkable. No splenomegaly. Adrenals: Unremarkable. No mass. Kidneys and ureters: Unremarkable. No solid mass. No hydronephrosis. Stomach and bowel: Mild fluid-filled small bowel with mild wall thickening, concerning for mild enteritis versus spontaneous bacterial peritonitis. No obstruction. PELVIS: Appendix: No findings to suggest acute appendicitis. Bladder: Unremarkable. No mass. Reproductive: Unremarkable as visualized. ABDOMEN and PELVIS: Intraperitoneal space: Moderate abdominal ascites, which extends into an umbilical hernia. No free air. Bones/joints: No acute fracture. No dislocation. Soft tissues: See above. Vasculature: Unremarkable. No abdominal aortic aneurysm. Lymph nodes: Unremarkable. No enlarged lymph nodes. IMPRESSION: 1. Moderate abdominal ascites, which extends into an umbilical hernia. 2. Mild fluid-filled small bowel with mild wall thickening, concerning for mild enteritis versus spontaneous bacterial peritonitis. 3. Moderate LEFT pleural effusion. Electronically signed by: Jakob Marrero MD 07/21/24 02:40 AM Chest CTA 07/20/24 23:49 Exam(s): CTA CHEST IV Amt: 119 cc's optiray 320 EXAM: CT Angiography Chest With Intravenous Contrast CLINICAL HISTORY: Reason for exam: rib pain/sob. TECHNIQUE: Axial computed tomographic angiography images of the chest with intravenous contrast. CTDI is 105.95 mGy and DLP is 2669.11 mGy-cm. Automated exposure control was utilized for the study. A dose lowering technique was utilized adhering to the principles of ALARA. MIP reconstructed images were created and reviewed. COMPARISON: No relevant prior studies available. FINDINGS: Pulmonary arteries: Unremarkable. No pulmonary embolism. Aorta: No acute findings. No thoracic aortic aneurysm. Lungs: See below. Pleural space: Moderate LEFT pleural effusion with subjacent airspace consolidation, likely atelectasis. Heart: Unremarkable. No cardiomegaly. No significant pericardial effusion. No evidence of RV dysfunction. Bones/joints: No acute fracture. No dislocation. Soft tissues: Unremarkable. Lymph nodes: Unremarkable. No enlarged lymph nodes. Intraperitoneal space: Abdominal ascites. IMPRESSION: 1. No pulmonary embolism. 2. Moderate LEFT pleural effusion with subjacent airspace consolidation, likely atelectasis. 3. Abdominal ascites. Electronically signed by: Jakob Marrero MD 07/21/24 02:18 AM KUB X-Ray 07/21/24 07:00 KUB CLINICAL HISTORY: Ileus. COMPARISON STUDY: KUB July 20, 2024. CT of the abdomen and pelvis performed earlier today. FINDINGS: The bowel gas pattern is normal. The amount of stool is within normal limits. Incidental note is made of contrast within the bladder from recent contrast-enhanced CT. IMPRESSION: Normal bowel gas pattern. ACT 112: Negative or not required by law. Electronically signed by: Issac Rankin M.D. 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 Work- up in the ED showed moderate fecal retention, mild to moderate ascites. Suspect both are contributed to patient's bloating and discomfort. Additionally, it is unclear how compliant patient has been with recommended medications as there seems to be some confusion on what doses he has been taking of several medications, specifically the lactulose and midodrine, since discharge earlier this month. Constipation Moderate fecal retention/Ileus --KUB:Nonobstructive bowel gas pattern. Moderate fecal retention. Continue lactulose, added bowel regimen in edition Given ascites, abdominal paracentesis might help with constipation GI on board Repeat KUB showed resolution of ileus Encouraged to ambulate Resolved Hypokalemia Hypomagnesemia Replete electrolytes as needed Monitor (2) Abdominal pain: Likely multifactorial due to constipation and ascites (3) 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: Pt has been evaluated by transplant clinic in [place] - pt is not currently listed, per pt due to aortic stenosis, chart also notes insurance/financial concerns --CT ABD: Small to moderate amount of ascites. Continue lactulose/Xifaxan GI on board S/P abdominal paracentesis Acetic fluid studies pending (4) Ascites: Recurrent issue - last paracentesis was 07/09 Continue torsemide Management as above Left pleural effusion Likely hepatic hydrothorax Appreciate pulmonology input Monitor volume status closely Saturating well on room air (5) Hepatic encephalopathy: No signs of encephalopathy currently Continue Lactulose/Xifaxan (6) Diabetes mellitus, type 2: Insulin sliding scale while admitted Diabetic diet BSG ACHS (7) Hyponatremia: Chronic hyponatremia Sodium levels at baseline Sodium 136 today Continue fluid restriction, urea, salt tablets Plan DVT Px: SCDs Re: thrombocytopenia CODE STATUS Full code Disposition Home Total Time Total Time Spent Total Time Spent (In Minutes): 55 minutes Discharge Plan Discharge Items Patient Disposition: Home - Self-Care Reason For Visit: CONSTIPATION, ASCITES Discharge Diagnosis: Ascites Hypokalemia Hypomagnesemia Constipation Activity: Per Instructions section Exercise/Sports: Gradually increase as tolerated Non-emergency contact: Primary Care Provider and [employer] Call non-emergency contact if: you have any medication questions, your symptoms worsen, your pain is concerning for you and you have a fever Follow-up/Referrals: Ren Pineda CRNP [Nurse Practitioner] - (The GI office will contact you for a follow up appointment regarding paracentesis.) Fernando Reina MD [Surgeon] - (Date & Time 07/31/2024 1:00 PM Provider Fernando Reina MD Department Nephrology, [facility] ) Krystian Palomo MD [Primary Care Provider] - (Date & Time 07/29/2024 11:20 AM Provider Krystian Palomo MD Department Family Medicine [facility] ) Diet: Heart Healthy Fluids: 1500ml (6 cups) Addtl Attending Provider Instructions: Follow-up with your primary care physician on 07/29/2024 11:20 AM Follow-up with your services mgr on 07/31/2024 1:00 PM Follow-up with your public health inspector CONCHIS Chandler in 2 to 3 weeks --Your ascetic fluid studies are pending at the time of discharge. Follow-up with your physician for results. Seek immediate medical attention if your symptoms reoccur or worsen Please take all medications as instructed on discharge list below. Please call if you have any questions or problems. You can reach a [facility] hospitalist on duty at [facility] 24 hours a day by calling [phone] Pending Studies at Discharge: Yes Studies:: Ascetic fluid studies Stand-Alone Forms: My [facility], Smoking Cessation Medications and DC Order Prescriptions: New docusate sodium 100 mg Capsule 100 mg PO BID PRN (Reason: Constipation) Qty: 60 0RF magnesium chloride [Mag 64] 64 mg Tablet,Delayed Release (Dr/Ec) 64 mg PO BID Qty: 60 0RF Continued metformin 500 mg Tablet 500 mg PO BIDM Rx Instructions: pt unsure if he is taking this allopurinol 300 mg Tablet 300 mg PO QAM multivitamin Tablet 1 tab PO QAM atorvastatin 20 mg tablet 20 mg PO QAM ascorbic acid (vitamin C) [Vitamin C] 1,000 mg Tablet 1 g PO QAM tamsulosin 0.4 mg capsule 0.4 mg PO DAILY Xifaxan 550 mg tablet 550 mg PO BID insulin glargine [Lantus Solostar U-100 Insulin] 100 unit/mL (3 mL) Insulin Pen 10 unit SUBCUT DAILY Rx Instructions: 9 am Probiotic 10 billion cell Capsule 10,000 mmu cells PO TID Rx Instructions: NOT ON PT'S MED LIST, ON [facility] MED LIST midodrine 2.5 mg Tablet 5 mg PO TIDM Qty: 60 0RF Rx Instructions: pt unsure how often he's taking this torsemide 20 mg Tablet 20 mg PO QAM Qty: 30 0RF Ure-Na 15 gram Powder In Packet 15 g PO BID Qty: 8 0RF sodium chloride 1,000 mg Tablet,Soluble 1,000 mg PO BID 30 Days Qty: 60 0RF omeprazole 20 mg capsule,delayed release(DR/EC) 20 mg PO DAILYBB mupirocin 2 % ointment 1 applic EXT TID PRN (Reason: Wound Care) potassium chloride 10 mEq Tablet,Er Particles/Crystals 20 meq PO BID 30 Days Qty: 120 0RF lactulose 20 gram/30 mL solution 30 g PO TID Rx Instructions: Adjust dose up or down to maintain 3-4 loose BMs per day Discharge Orders: Discharge Order (Routine); Ordered 07/22/24 Ordered By: Karsten Delgado Admission Data Admit Date/Time: 07/18/24 17:07 Attending Provider: Karsten Delgado Admit Provider: Jolly Lopez Primary Care Provider: Krystian Palomo Other Providers: Jolly Lopez; Rich Cee Jr; Kelechi Khan; Marcell Ibarra; Omar Argueta; Morgan Colbert; Beverly Pierce; Cheyanne Blackburn; Demario Mckeon; Yannick Parsons; Sophia Hill
--- NOTE | 2024-07-22 14:06 | Ultrasound Report ---
ULTRASOUND-GUIDED PARACENTESIS CLINICAL HISTORY: Ascites PROCEDURE: Procedure and risks were explained. Informed consent was obtained. A final timeout was com pleted. The abdomen was prepped and draped in sterile fashion. 1% buffered lidocaine was utilized for skin anesthesia. Utilizing ultrasound guidance, a 5 [place] safety centesis catheter was advanced into the left lower q uadrant pocket of ascites. Ultrasound images were obtained. A total of 6 L of ascites fluid was remov ed and discarded. The catheter was removed and Band-Aid applied. The patient tolerated the procedure well. Vital signs will be monitored postprocedure. IMPRESSION: Ultrasound-guided paracentesis as above. Performed, dictated, and signed by Maximo Moore PA-C; to be co-signed by Dr. Alfredo Thornton. Electronically signed by: Alfredo Thornton M.D. 07/22/2024 2:13 PM
[2024-07-22 14:22] VITALS: BP 116/79; PULSE 113
== END 2024-07-22 15:14 | disposition home or self-care (01) | DRG 433 ==
LOC: ED 11:31 → 2N 17:07 → SUATTDRO 17:07 → 2N 20:16

== ENCOUNTER 2024-08-30 18:40 | Inpatient (IN) ==
--- NOTE | 2024-08-30 19:28 | Emergency Department Note ---
History of Present Illness General Chief complaint: Shortness of Breath/Dyspnea Time Seen by Provider: 08/30/24 19:10 History of Present Illness This 59-year-old male presents to ER complaining of shortness of breath that is worse with laying down for the past few days. No history of heart failure. Patient denies chest pain, fever, chills, abdominal pain, leg pain or swelling. No history of PE or DVT. Home Medications Medication Instructions Recorded Confirmed Type allopurinol 300 mg tablet 300 mg PO QAM 06/03/19 08/30/24 History metformin 500 mg tablet 500 mg PO BIDM 06/03/19 08/30/24 History ascorbic acid (vitamin C) 1,000 mg 1 g PO QAM 08/27/23 08/30/24 History tablet (Vitamin C) rifaximin 550 mg tablet (Xifaxan) 550 mg PO BID 01/02/24 08/30/24 History omeprazole 20 mg capsule,delayed 20 mg PO DAILYBB 02/27/24 08/30/24 History release midodrine 2.5 mg tablet 5 mg (2 x 2.5 mg) PO TIDM #60 tabs 07/06/24 08/30/24 Rx lactulose 20 gram/30 mL oral 30 g PO TID Cirrhosis 07/18/24 08/30/24 History solution potassium chloride 10 mEq 20 meq PO BID 08/30/24 08/30/24 History tablet,extended release(part/cryst) sodium chloride 1,000 mg soluble 1,000 mg DAILY 08/30/24 08/30/24 History tablet torsemide 20 mg tablet 20 mg PO BID 08/30/24 08/30/24 History Allergies Allergy/AdvReac Type Severity Reaction Status Date / Time aspirin AdvReac Intermediate NOSE Verified 06/29/24 20:54 BLEEDS--IF TAKES REGULARLY salicylates AdvReac Intermediate NOSE BLEEDS Verified 06/29/24 20:54 Past Med/Surg History Problem List (Updated 08/31/24 @ 01:32 by Denise Viera PA-C) Acute dyspnea (Acute) Pleural effusion (Acute) Pleural effusion Hypokalemia (Acute) Hypomagnesemia (Acute) Constipation (Acute) Abdominal pain (Acute) Hyponatremia Orthostatic hypotension Dizziness (Acute) Medical non-compliance (Acute) Hyperammonemia (Acute) Ascites (Acute) Urinary retention Cirrhosis (Acute) Morbid obesity Hepatic encephalopathy 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 "if i get up to fast". S/P abdominal paracentesis Fracture of rib of right side 2013 Anaplasmosis 2019 Acute hepatic encephalopathy Cardiac murmur HX Hypertension Right rib fracture hx ~. Surgical History History of esophagogastroduodenoscopy (EGD) History of colonoscopy Family History Mother History of colonoscopy Brother Family history of diabetes mellitus Brother Family history of diabetes mellitus Grandmother (Paternal) Family history of diabetes mellitus Other No family history of adverse response to anesthesia Social History Smoking Status: Former smoker Tobacco Type: Smokeless Tobacco (Dip or Chew) Second Hand Exposure: No; Do You Dip or Chew Tobacco: Yes; Hx Alcohol Use: No Hx Substance Use: No Preferred Language: Indian Communication Ability: Effective Supervisor Pairing And Inspecting Required: No Beliefs That Will Affect Care: None marital status: Single Current Living Situation: Alone Current Living Situation Comment: With brother and mother Feels Safe at Home: Yes Assistive Devices: Cane, Scooter/Electric Scooter and Walker Review of Systems A total of 10 systems reviewed and were otherwise negative Physical Exam Vital Signs Vital Signs - 24 hr 08/30/24 18:46 08/30/24 18:46 08/30/24 18:46 Temperature 36.7 C Temperature Source Oral Pulse Rate 101 H Pulse Rate [Apical] Pulse Rate from SpO2 Sensor Pulse Rhythm [Apical] Respiratory Rate 20 Respiratory Effort / Characteristics Non-Labored Non-Labored Spontaneous Respiratory Depth Normal Normal Respiratory Pattern Regular Blood Pressure 102/63 Blood Pressure [Right Arm] Blood Pressure Mean 76 Blood Pressure Mean [Right Arm] Pulse Oximetry 100 100 Oxygen Delivery Method Room Air Room Air Room Air Oxygen Flow Rate Sepsis Recent Fever Within 48 Hours No Sepsis New/Unexplained Change in Mental Status No Sepsis Action Taken by Nursing No Action Required 08/30/24 18:46 08/30/24 18:58 08/30/24 19:30 Temperature 36.7 C Temperature Source Oral Pulse Rate 98 H Pulse Rate [Apical] 102 H Pulse Rate from SpO2 Sensor Pulse Rhythm [Apical] Regular Respiratory Rate 20 Respiratory Effort / Characteristics Non-Labored Spontaneous Respiratory Depth Normal Respiratory Pattern Blood Pressure Blood Pressure [Right Arm] 102/63 Blood Pressure Mean Blood Pressure Mean [Right Arm] 76 Pulse Oximetry 100 100 Oxygen Delivery Method Room Air Room Air Oxygen Flow Rate Sepsis Recent Fever Within 48 Hours Sepsis New/Unexplained Change in Mental Status Sepsis Action Taken by Nursing 08/30/24 19:57 08/30/24 20:00 08/30/24 20:00 Temperature Temperature Source Pulse Rate 98 H Pulse Rate [Apical] Pulse Rate from SpO2 Sensor 98 H Pulse Rhythm [Apical] Respiratory Rate 16 Respiratory Effort / Characteristics Respiratory Depth Respiratory Pattern Blood Pressure 103/66 103/66 Blood Pressure [Right Arm] Blood Pressure Mean 74 74 Blood Pressure Mean [Right Arm] Pulse Oximetry 97 Oxygen Delivery Method Oxygen Flow Rate Sepsis Recent Fever Within 48 Hours Sepsis New/Unexplained Change in Mental Status Sepsis Action Taken by Nursing 08/30/24 20:21 08/30/24 20:27 08/30/24 20:30 Temperature Temperature Source Pulse Rate 104 H Pulse Rate [Apical] 102 H Pulse Rate from SpO2 Sensor 104 H Pulse Rhythm [Apical] Respiratory Rate 21 22 Respiratory Effort / Characteristics Non-Labored Spontaneous Respiratory Depth Normal Respiratory Pattern Blood Pressure 106/64 Blood Pressure [Right Arm] 106/64 Blood Pressure Mean 77 Blood Pressure Mean [Right Arm] 78 Pulse Oximetry 97 100 Oxygen Delivery Method Room Air Oxygen Flow Rate Sepsis Recent Fever Within 48 Hours Sepsis New/Unexplained Change in Mental Status Sepsis Action Taken by Nursing 08/30/24 20:30 08/30/24 20:30 08/30/24 20:30 Temperature Temperature Source Pulse Rate 100 H Pulse Rate [Apical] Pulse Rate from SpO2 Sensor 100 H Pulse Rhythm [Apical] Respiratory Rate 24 Respiratory Effort / Characteristics Respiratory Depth Respiratory Pattern Blood Pressure 106/64 106/64 Blood Pressure [Right Arm] Blood Pressure Mean 77 77 Blood Pressure Mean [Right Arm] Pulse Oximetry 100 Oxygen Delivery Method Oxygen Flow Rate Sepsis Recent Fever Within 48 Hours Sepsis New/Unexplained Change in Mental Status Sepsis Action Taken by Nursing 08/30/24 21:00 08/30/24 21:00 08/30/24 21:00 Temperature Temperature Source Pulse Rate 98 H Pulse Rate [Apical] Pulse Rate from SpO2 Sensor 98 H Pulse Rhythm [Apical] Respiratory Rate 18 Respiratory Effort / Characteristics Respiratory Depth Respiratory Pattern Blood Pressure 105/66 105/66 Blood Pressure [Right Arm] Blood Pressure Mean 72 72 Blood Pressure Mean [Right Arm] Pulse Oximetry 95 Oxygen Delivery Method Oxygen Flow Rate Sepsis Recent Fever Within 48 Hours Sepsis New/Unexplained Change in Mental Status Sepsis Action Taken by Nursing 08/30/24 21:30 08/30/24 21:30 08/30/24 21:30 Temperature Temperature Source Pulse Rate 101 H Pulse Rate [Apical] Pulse Rate from SpO2 Sensor 101 H Pulse Rhythm [Apical] Respiratory Rate 17 Respiratory Effort / Characteristics Respiratory Depth Respiratory Pattern Blood Pressure 96/58 L 96/58 L Blood Pressure [Right Arm] Blood Pressure Mean 62 62 Blood Pressure Mean [Right Arm] Pulse Oximetry 97 Oxygen Delivery Method Oxygen Flow Rate Sepsis Recent Fever Within 48 Hours Sepsis New/Unexplained Change in Mental Status Sepsis Action Taken by Nursing 08/30/24 21:54 08/30/24 21:56 08/30/24 22:00 Temperature Temperature Source Pulse Rate 104 H Pulse Rate [Apical] 99 H Pulse Rate from SpO2 Sensor 104 H Pulse Rhythm [Apical] Respiratory Rate 21 21 Respiratory Effort / Characteristics Non-Labored Spontaneous Respiratory Depth Normal Respiratory Pattern Blood Pressure 96/54 L Blood Pressure [Right Arm] 98/56 L Blood Pressure Mean 64 Blood Pressure Mean [Right Arm] 70 Pulse Oximetry 99 96 Oxygen Delivery Method Room Air Oxygen Flow Rate Sepsis Recent Fever Within 48 Hours Sepsis New/Unexplained Change in Mental Status Sepsis Action Taken by Nursing 08/30/24 22:00 08/30/24 22:00 08/30/24 22:00 Temperature Temperature Source Pulse Rate Pulse Rate [Apical] Pulse Rate from SpO2 Sensor Pulse Rhythm [Apical] Respiratory Rate Respiratory Effort / Characteristics Respiratory Depth Respiratory Pattern Blood Pressure 96/54 L 96/54 L 96/54 L Blood Pressure [Right Arm] Blood Pressure Mean 64 64 64 Blood Pressure Mean [Right Arm] Pulse Oximetry Oxygen Delivery Method Oxygen Flow Rate Sepsis Recent Fever Within 48 Hours Sepsis New/Unexplained Change in Mental Status Sepsis Action Taken by Nursing 08/30/24 22:03 08/30/24 22:27 08/30/24 22:30 Temperature Temperature Source Pulse Rate 110 H 105 H Pulse Rate [Apical] Pulse Rate from SpO2 Sensor 109 H 103 H Pulse Rhythm [Apical] Respiratory Rate 18 17 Respiratory Effort / Characteristics Respiratory Depth Respiratory Pattern Blood Pressure 82/46 L Blood Pressure [Right Arm] Blood Pressure Mean 48 Blood Pressure Mean [Right Arm] Pulse Oximetry 99 98 Oxygen Delivery Method Nasal Cannula Nasal Cannula Oxygen Flow Rate 2 2 Sepsis Recent Fever Within 48 Hours Sepsis New/Unexplained Change in Mental Status Sepsis Action Taken by Nursing 08/30/24 22:30 08/30/24 22:30 08/30/24 22:33 Temperature Temperature Source Pulse Rate 99 H Pulse Rate [Apical] Pulse Rate from SpO2 Sensor 99 H Pulse Rhythm [Apical] Respiratory Rate 14 Respiratory Effort / Characteristics Respiratory Depth Respiratory Pattern Blood Pressure 82/46 L 82/46 L Blood Pressure [Right Arm] Blood Pressure Mean 48 48 Blood Pressure Mean [Right Arm] Pulse Oximetry 97 Oxygen Delivery Method Nasal Cannula Oxygen Flow Rate 2 Sepsis Recent Fever Within 48 Hours Sepsis New/Unexplained Change in Mental Status Sepsis Action Taken by Nursing 08/30/24 22:54 08/30/24 22:55 08/30/24 23:07 Temperature Temperature Source Pulse Rate 103 H 104 H Pulse Rate [Apical] Pulse Rate from SpO2 Sensor Pulse Rhythm [Apical] Respiratory Rate 22 Respiratory Effort / Characteristics Respiratory Depth Respiratory Pattern Blood Pressure 109/64 Blood Pressure [Right Arm] Blood Pressure Mean 69 Blood Pressure Mean [Right Arm] Pulse Oximetry Oxygen Delivery Method Oxygen Flow Rate Sepsis Recent Fever Within 48 Hours Sepsis New/Unexplained Change in Mental Status Sepsis Action Taken by Nursing 08/30/24 23:09 08/30/24 23:30 08/31/24 00:00 Temperature Temperature Source Pulse Rate 103 H 99 H 97 H Pulse Rate [Apical] Pulse Rate from SpO2 Sensor 99 H 97 H Pulse Rhythm [Apical] Respiratory Rate 14 19 17 Respiratory Effort / Characteristics Respiratory Depth Respiratory Pattern Blood Pressure 109/64 108/61 97/62 L Blood Pressure [Right Arm] Blood Pressure Mean 79 76 73 Blood Pressure Mean [Right Arm] Pulse Oximetry 97 95 96 Oxygen Delivery Method Nasal Cannula Nasal Cannula Nasal Cannula Oxygen Flow Rate 2 2 2 Sepsis Recent Fever Within 48 Hours Sepsis New/Unexplained Change in Mental Status Sepsis Action Taken by Nursing 08/31/24 00:12 08/31/24 00:42 08/31/24 00:44 Temperature 36.6 C Temperature Source Oral Pulse Rate 103 H 95 H Pulse Rate [Apical] Pulse Rate from SpO2 Sensor 102 H 95 H Pulse Rhythm [Apical] Respiratory Rate 20 16 Respiratory Effort / Characteristics Respiratory Depth Respiratory Pattern Blood Pressure 97/62 L 95/55 L Blood Pressure [Right Arm] Blood Pressure Mean 73 68 Blood Pressure Mean [Right Arm] Pulse Oximetry 95 97 Oxygen Delivery Method Nasal Cannula Nasal Cannula Nasal Cannula Oxygen Flow Rate 2 2 2 Sepsis Recent Fever Within 48 Hours Sepsis New/Unexplained Change in Mental Status Sepsis Action Taken by Nursing VITALS: Vitals are noted on the nurse's note and reviewed by myself. Vital signs pulse ox 100% on room air GENERAL: Pleasant gentleman, in no acute distress, nondiaphoretic, well- developed well-nourished. SKIN: The skin was without rashes, erythema, edema, or bruising. There is no tenting of the skin. Capillary reflex less than 2 seconds. HEAD: Normocephalic atraumatic. EARS: External auditory canals clear EYES: Pupils equal round and reactive to light and accommodation. Conjunctivae without injection, sclerae without icterus. Extraocular movements intact. NOSE: Patent, no discharge. MOUTH: Mucous membranes moist. Pharynx without erythema or exudate. Uvula midline. Airway patent. Tongue does not deviate. NECK: Supple without nuchal rigidity. No lymphadenopathy. No thyromegaly. Cervical spine is nontender. No JVD. HEART: Regular rate and rhythm LUNGS: Clear to auscultation bilaterally without wheezes, rales or rhonchi. No retractions or accessory muscle use. ABDOMEN: Positive bowel sounds x 4. Normal tympanic percussion. Soft, nontender, without masses or organomegaly. Wise sign negative. No guarding or rebound tenderness. No CVA tenderness MUSCULOSKELETAL: No muscle atrophy, erythema, or edema noted. NEURO: Patient was alert and oriented to person place and time. Normal sensation to light and sharp touch. No focal neurological deficits. Course Administered Medications Rifaximin (Rifaximin 550 Mg Tablet) 550 mg PO BID [facility] Stop: 09/29/24 23:29 Last Admin: 08/31/24 00:53 Dose: 550 mg Documented By: JH Discontinued Medications Magnesium Sulfate/Dextrose (Magnesium Sulfate / D5w) 1 gm in 100 mls @ 100 mls/hr IV Q1H MOODY Stop: 08/30/24 23:39 Last Infusion: 08/30/24 23:57 Dose: Infused Documented By: Admin: 08/30/24 22:57 Dose: 100 mls/hr Documented By: Infusion: 08/30/24 22:55 Dose: Infused Documented By: Admin: 08/30/24 21:52 Dose: 100 mls/hr Documented By: GIA Albumin Human (Albumin 25%) 25 gm in 100 mls @ 50 mls/hr IV ONE ONE Stop: 08/31/24 00:29 Last Infusion: 08/31/24 01:23 Dose: Infused Documented By: Admin: 08/30/24 23:33 Dose: 50 mls/hr Documented By: ELISHA Ioversol (Optiray 320 125ml) 83 ml IV ONCE ONE Stop: 08/30/24 20:13 Last Admin: 08/30/24 20:12 Dose: 83 ml Documented By: CRIS Midodrine (Midodrine Hcl 2.5 Mg Tab) 5 mg PO NOW STA Stop: 08/30/24 22:31 Last Admin: 08/30/24 22:57 Dose: 5 mg Documented By: GIA Potassium Chloride (Potassium Chloride Crtab 20 Meq Tabcr) 40 meq PO NOW STA Stop: 08/30/24 22:31 Last Admin: 08/30/24 22:57 Dose: 40 meq Documented By: GIA Medical Decision Making Medical Records Attestation: I reviewed the patient's medical records. Home Medications Current Medication List: was personally reviewed by me Laboratory Data Attestation: I reviewed the patient's lab results. 08/30/24 18:48 08/30/24 18:48 Lab Results 08/30/24 08/30/24 08/30/24 Range/Units 18:48 19:22 22:26 WBC 5.07 (4.8-10.8) K/ul RBC 2.78 L (4.70-6.10) M/uL Hgb 9.8 L (14.0-18.0) g/dl Hct 28.6 L (42.0-52.0) % MCV 102.9 H (80.0-100.0) fL MCH 35.3 H (25.0-34.0) pg MCHC 34.3 (32.0-36.0) g/dL RDW Std Deviation 61.1 H (36.4-46.3) fL RDW Coeff of Polo 16.1 H (11.5-14.5) % Plt Count 75 L (130-400) K/uL MPV 10.5 (9.4-12.4) fL Immature Gran % (Auto) 0.4 % Neut % (Auto) 68.7 % Lymph % (Auto) 10.8 % [place] % (Auto) 13.6 % Eos % (Auto) 4.9 % Baso % (Auto) 1.6 % Neut # (Auto) 3.48 (1.40-6.50) K/uL Lymph # (Auto) 0.55 L (1.20-3.40) K/uL [place] # (Auto) 0.69 H (0.11-0.59) K/uL Eos # (Auto) 0.25 (0.00-0.50) K/uL Baso # (Auto) 0.08 (0.00-0.20) K/uL Immature Gran # (Auto) 0.02 (0.01-0.20) K/uL Sodium 132 L (136-145) mmol/L Potassium 3.1 L (3.5-5.1) mmol/L Chloride 96 L (98-107) mmol/L Carbon Dioxide 27 (21-32) mmol/L Anion Gap 9 (3-11) BUN 9 (6-23) mg/dl Creatinine 1.03 (0.6-1.4) mg/dl Est Cr Clr Drug Dosing 97.6 ml/min eGFR 83.16 BUN/Creatinine Ratio 8.7 L (10-20) Glucose 194 H (70-99(Fasting)) mg/dl Calcium 8.0 L (8.6-10.3) mg/dl Magnesium 1.5 L (1.7-2.4) mg/dl Total Bilirubin 4.1 H (0.2-1.0) mg/dl AST 40 H (13-39) U/L ALT 18 (7-52) U/L Alkaline Phosphatase 104 (34-104) U/L Troponin I High Sens 11.4 10.6 (0-20) pg/ml B-Natriuretic Peptide 62 (0-100) pg/ml Total Protein 6.0 (6.0-8.3) gm/dl Albumin 2.5 L (3.4-5.0) gm/dl Globulin 3.5 (2.5-4.0) gm/dl Albumin/Globulin Ratio 0.7 L (0.9-2) Adenovirus (PCR) Not Detected (NotDetected) B. pertussis DNA (PCR) Not Detected (NotDetected) B.parapertussis DNA PCR Not Detected (NotDetected) C. pneumoniae DNA (PCR) Not Detected (NotDetected) Coronavirus OC43 (PCR) Not Detected (NotDetected) Coronavirus HKU1 (PCR) Not Detected (NotDetected) Coronavirus 229E (PCR) Not Detected (NotDetected) SARS-CoV-2 (PCR) Not Detected (NotDetected) Coronavirus NL63 (PCR) Not Detected (NotDetected) Human Metapneumovir PCR Not Detected (NotDetected) Influenza Type A (PCR) Not Detected (NotDetected) Influenza Type B (PCR) Not Detected (NotDetected) M. pneumoniae (PCR) Not Detected (NotDetected) Parainfluenza 1 (PCR) Not Detected (NotDetected) Parainfluenza 2 (PCR) Not Detected (NotDetected) Parainfluenza 3 (PCR) Not Detected (NotDetected) Parainfluenza 4 (PCR) Not Detected (NotDetected) RSV (PCR) Not Detected (NotDetected) Entero/Rhino (PCR) Not Detected (NotDetected) Imaging Data Attestation: I personally reviewed and interpreted this imaging study as follows: Radiologist's Impression: Chest CTA 08/30/24 19:15 Exam(s): CTA CHEST IV Amt: 83 ml opti 320 EXAM: CT Angiography Chest With Intravenous Contrast CLINICAL HISTORY: Reason for exam: Dyspnea. TECHNIQUE: Axial computed tomographic angiography images of the chest with intravenous contrast. CTDI is 28 mGy and DLP is 961 mGy-cm. Automated exposure control was utilized for the study. A dose lowering technique was utilized adhering to the principles of ALARA. MIP reconstructed images were created and reviewed. COMPARISON: 07/21/2024 FINDINGS: Pulmonary arteries: No pulmonary embolism. Aorta: No acute findings. Normal caliber. No dissection. Lungs: Compressive atelectasis in the left lung. The right lung is clear. No interstitial edema. No consolidation. Pleural space: Moderate left pleural effusion. Heart: Unremarkable. Bones/joints: No acute fracture. Soft tissues: Unremarkable. Lymph nodes: Unremarkable. Liver: Cirrhotic liver. Calcifications within the right hepatic lobe measuring up to 2.3 cm. Intraperitoneal space: Ascites in the upper abdomen. IMPRESSION: 1. No pulmonary embolism. 2. Moderate left pleural effusion. 3. Cirrhotic liver and ascites. Electronically signed by: Harris Gutierrez MD 08/31/24 00:43 AM Chest X-Ray 08/30/24 19:15 Exam(s): XR CXR 1 VIEW EXAM: XR Chest, 1 View CLINICAL HISTORY: Reason for exam: Dyspnea. TECHNIQUE: Frontal view of the chest. COMPARISON: Prior chest x-ray from July 20, 2024. FINDINGS: Lungs: Moderate peribronchial thickening of the central lower lobe bronchi with increased interstitial opacities throughout the lungs. No consolidation. Pleural space: There is blunting left costophrenic angle. No pneumothorax. Heart: Unremarkable. No cardiomegaly. Mediastinum: Unremarkable. Normal mediastinal contour. Bones/joints: Unremarkable. No acute fracture. IMPRESSION: Bronchitis with pneumonitis, which may be of infectious or inflammatory etiologies. No consolidation. Tiny right left pleural effusion. Electronically signed by: Citlaly Corcoran MD 08/31/24 00:26 AM [facility] Narrative Prior records/ancillary studies reviewed. Triage Nursing notes reviewed. Additional history obtained from the nursing. The patient's history was concerning for respiratory difficulties. Differential diagnosis: Etiologies such as infections, reactive airway disease, pneumonia, pneumothorax, COPD, CHF, cardiac ischemia, pulmonary embolism, musculoskeletal, gastrointestinal, as well as others were entertained. Physical examination: As above. ER treatment provided: An order was placed for continuous cardiac monitoring. The monitor shows a rate of 60-100 with a sinus rhythm per my interpretation. [] On reassessment the patient felt better. Diagnostic interpretation by me: The electrocardiogram was ordered for SOB. ECG: Poor baseline, normal sinus, normal intervals, no acute ST-T changes, rate of 99. Impression normal sinus rhythm independently interpreted by myself The labs Independently Interpreted by myself revealed negative troponin, stable anemia per chart review Imaging studies: Chest x-ray left-sided pleural effusion per my independent interpretation CT was reviewed and read by radiology as above. HEART SCORE: Hx: high/mod/low suspicion: 0 ECG: ST depression/nonspecific changes/normal: 0 Age: Greater than 65/45-64/less than 45: 1 Risk factors: (Hypertension, hyperlipidemia, diabetes, coronary disease, tobacco use, cocaine use): 2 Troponin: Greater than 2 times normal limits/1-2 times normal limits/normal: 0 Total: 3 Consultation: A consultation was placed with the hospitalist. The case was discussed and diagnostics were reviewed. The patient was evaluated in the ER for further treatment. This appears to be consistent with large left-sided pleural effusion. Patient was symptomatic. Medicine was consulted case discussed. He will be admitted to the medical service. By the evaluation outlined above emergent etiologies such as CHF, cardiac ischemia, pulmonary embolism, reactive airway disease, pneumonia, pneumothorax, musculoskeletal, serious bacterial infections, as well as others were deemed relatively unlikely. The pt informed about the findings as listed above. All questions were answered and pleased with the treatment. The chart was completed utilizing [employer] Speech voice recognition software. Grammatical errors, random word insertions, pronoun errors, and incomplete sentences are an occassional consequence of this system due to software limitations, ambient noise, and hardware issues. Any formal questions or concerns about the content, text, or information contained within the body of this dictation should be directly addressed to the physician assistant corporate controller for clarification. Impression & Plan Pleural effusion, Acute dyspnea Discharge Plan Visit Data Chief Complaint: Shortness of Breath/Dyspnea ED Provider: Aj Oleary ED Midlevel Provider: Denise Viera Discharge Problem: Pleural effusion, Acute dyspnea Patient Disposition: Admitted As Inpatient Condition: Fair Discharge Instructions Interventions: ED Discharge Assessment Last Done: 08/31/24 00:44 Forms Stand Alone Forms: My [facility] Vita Products Prescriptions Prescriptions: No Action metformin 500 mg Tablet 500 mg PO BIDM allopurinol 300 mg Tablet 300 mg PO QAM ascorbic acid (vitamin C) [Vitamin C] 1,000 mg Tablet 1 g PO QAM Xifaxan 550 mg tablet 550 mg PO BID midodrine 2.5 mg Tablet 5 mg PO TIDM Qty: 60 0RF Rx Instructions: pt unsure how often he's taking this potassium chloride 10 mEq tablet,ER particles/crystals 20 meq PO BID sodium chloride 1,000 mg tablet,soluble 1,000 mg DAILY torsemide 20 mg tablet 20 mg PO BID Rx Instructions: once in AM, once in afternoon omeprazole 20 mg capsule,delayed release(DR/EC) 20 mg PO DAILYBB lactulose 20 gram/30 mL solution 30 g PO TID Rx Instructions: Adjust dose up or down to maintain 3-4 loose BMs per day Referrals Referrals: Krystian Palomo MD [Primary Care Provider] -
[2024-08-30 19:33] LABS: Basophils # (auto) 0.08 K/uL (0.00-0.20); Basophils % (auto) 1.6 %; Eosinophils # (auto) 0.25 K/uL (0.00-0.50); Eosinophils % (auto) 4.9 %; Hematocrit (blood only) 28.6 % (42.0-52.0); Hemoglobin 9.8 g/dl (14.0-18.0); Immature Granulocytes # (auto) 0.02 K/uL (0.01-0.20); Immature Granulocytes % (auto) 0.4 %; Lymphocytes # (auto) 0.55 K/uL (1.20-3.40); Lymphocytes % (auto) 10.8 %; Mean Corpuscular Hemoglobin 35.3 pg (25.0-34.0); Mean Corpuscular Hgb Conc 34.3 g/dL (32.0-36.0); Mean Corpuscular Volume 102.9 fL (80.0-100.0); Mean Platelet Volume 10.5 fL (9.4-12.4); Monocytes # (auto) 0.69 K/uL (0.11-0.59); Monocytes % (auto) 13.6 %; Neutrophils # (auto) 3.48 K/uL (1.40-6.50); Neutrophils % (auto) 68.7 %; Platelet Count 75 K/uL (130-400); RDW Coefficient of Variation 16.1 % (11.5-14.5); RDW Standard Deviation 61.1 fL (36.4-46.3); Red Blood Count 2.78 M/uL (4.70-6.10); White Blood Count 5.07 K/ul (4.8-10.8)
[2024-08-30 19:49] LABS: Albumin Globulin Ratio 0.7 (0.9-2); Albumin Level 2.5 gm/dl (3.4-5.0); BUN Creatinine Ratio 8.7 (10-20); Bilirubin,Total 4.1 mg/dl (0.2-1.0); Creatinine Clr Calc Pharmacy 97.6 ml/min; Globulin 3.5 gm/dl (2.5-4.0); Magnesium 1.5 mg/dl (1.7-2.4); Potassium 3.1 mmol/L (3.5-5.1)
[2024-08-30 19:54] LABS: Troponin I High Sensitivity 11.4 pg/ml (0-20)
[2024-08-30] MEDS: OPTIRAY 320 125ml IV ONE (20:12)
[2024-08-30 20:18] LABS: Adenovirus PCR Not Detected (NotDetected); Bordetella parapertussis PCR Not Detected (NotDetected); Bordetella pertussis PCR Not Detected (NotDetected); Chlamydia pneumoniae PCR Not Detected (NotDetected); Coronavirus 229E PCR Not Detected (NotDetected); Coronavirus CoV-2 (COVID19)PCR Not Detected (NotDetected); Coronavirus HKU1 PCR Not Detected (NotDetected); Coronavirus NL63 PCR Not Detected (NotDetected); Coronavirus OC43PCR Not Detected (NotDetected); Human Metapneumovirus PCR Not Detected (NotDetected); Influenza A PCR Not Detected (NotDetected); Influenza B PCR Not Detected (NotDetected); Mycoplasma pneumoniae PCR Not Detected (NotDetected); Parainfluenza Virus 1 PCR Not Detected (NotDetected); Parainfluenza Virus 2 PCR Not Detected (NotDetected); Parainfluenza Virus 3 PCR Not Detected (NotDetected); Parainfluenza Virus 4 PCR Not Detected (NotDetected); Respiratory Syncytial VirusPCR Not Detected (NotDetected); Rhinovirus/Enterovirus PCR Not Detected (NotDetected)
[2024-08-30] MEDS: MAGNESIUM SULFATE / D5W 1 GM/100 ML BAG IV SCH (21:52)
[2024-08-30] MEDS: MIDODRINE HCL 2.5 MG TAB PO STA (22:57)
[2024-08-30] MEDS: POTASSIUM CHLORIDE CRTAB 20 MEQ TABCR PO STA (22:57)
[2024-08-30 23:19] LABS: Troponin I High Sensitivity 10.6 pg/ml (0-20)
--- NOTE | 2024-08-30 23:22 | History & Physical Report ---
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 Consider pulmonary consult if still persistent GI consult re: recurrent ascites Increase midodrine maintenance dose given hypotension Unasyn followed by Augmentin course for possible odontogenic infection CT soft tissue neck Basal bolus insulin, ISS BG goal 1 10-1 40, carb count coverage DVT prophylaxis. SCDs Re: Thrombocytopenia Full code Text document was generated using [employer] voice recognition software. It may contain grammatical or spelling errors. Kindly contact undersigned for clarification of any documentation item in question. History of Present Illness Chief Complaint: Shortness of breath Primary Care Provider: Krystian Palomo MD History obtained from patient and records. Medical history significant for moderate , hypotension on midodrine, hyperlipidemia, pulmonary hypertension, NAFLD cirrhosis, hepatocellular CA, left pleural effusion, DM2 insulin requiring, BPH, chronic hyponatremia, chronic pancytopenia (baseline hemoglobin 9-10), gout, past tobacco abuse Recent confinement last June 2024 for ascites and left pleural effusion in the setting of decompensated cirrhosis. Diagnostic and therapeutic paracentesis during confinement. Analysis consistent with transudative fluid. Pulmonology consulted for left pleural effusion. Pleural effusion likely secondary to hepatic hydrothorax Diuretic Rx recommended. Patient noted progressive abdominal distention over the last few weeks. No pain. Patient compliant with home medications. Does not measure fluid intake because he does not drink as much anyway. Outpatient paracenteses contemplated this week as per patient. Last few days, patient noted shortness of breath worse on lying down. Cough symptoms productive of clear sputum. Legs more swollen than usual. Patient also noted left jaw pain, possible dental infection which happens from time to time. Some trouble opening the mouth. No fever, no chills. Medical History as above Surgical History : None Family History : DM, COPD, heart disease Personal/Social history : Past tobacco abuse, no EtOH intake, disabled Allergies Allergy/AdvReac Type Severity Reaction Status Date / Time aspirin AdvReac Intermediate NOSE Verified 06/29/24 20:54 BLEEDS--IF TAKES REGULARLY salicylates AdvReac Intermediate NOSE BLEEDS Verified 06/29/24 20:54 Home Medications Medication Instructions Recorded Confirmed Type allopurinol 300 mg tablet 300 mg PO QAM 06/03/19 08/30/24 History metformin 500 mg tablet 500 mg PO BIDM 06/03/19 08/30/24 History ascorbic acid (vitamin C) 1,000 mg 1 g PO QAM 08/27/23 08/30/24 History tablet (Vitamin C) rifaximin 550 mg tablet (Xifaxan) 550 mg PO BID 01/02/24 08/30/24 History omeprazole 20 mg capsule,delayed 20 mg PO DAILYBB 02/27/24 08/30/24 History release midodrine 2.5 mg tablet 5 mg (2 x 2.5 mg) PO TIDM #60 tabs 07/06/24 08/30/24 Rx lactulose 20 gram/30 mL oral 30 g PO TID Cirrhosis 07/18/24 08/30/24 History solution potassium chloride 10 mEq 20 meq PO BID 08/30/24 08/30/24 History tablet,extended release(part/cryst) sodium chloride 1,000 mg soluble 1,000 mg DAILY 08/30/24 08/30/24 History tablet torsemide 20 mg tablet 20 mg PO BID 08/30/24 08/30/24 History Past Med/Surg History Problem List (Updated 08/31/24 @ 01:32 by Denise Viera PA-C) Acute dyspnea (Acute) Pleural effusion (Acute) Pleural effusion Hypokalemia (Acute) Hypomagnesemia (Acute) Constipation (Acute) Abdominal pain (Acute) Hyponatremia Orthostatic hypotension Dizziness (Acute) Medical non-compliance (Acute) Hyperammonemia (Acute) Ascites (Acute) Urinary retention Cirrhosis (Acute) Morbid obesity Hepatic encephalopathy 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 "if i get up to fast". S/P abdominal paracentesis Fracture of rib of right side 2013 Anaplasmosis 2019 Acute hepatic encephalopathy Cardiac murmur HX Hypertension Right rib fracture hx ~. 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: No Beliefs That Will Affect Care: None marital status: Single Current Living Situation: Family Current Living Situation Comment: With brother and mother Other Information That Helps Us Care for You: No Feels Safe at Home: Yes Safety Concerns: Feels Safe At This Time Assistive Devices: Cane, Glasses, Hospital Bed and Walker Review of Systems Review of Systems: As per HPI, all other systems reviewed and negative Physical Exam Physical Exam: GENERAL: Comfortable, pleasant, obese, no respiratory distress SKIN: Pallor, warm HEENT: Pale palpebral conjunctivae, no ptosis, mild trismus, dry buccal mucosa, oral cavity not fully examined NECK : Supple, left jaw tenderness CHEST : Decreased breath sounds, no tenderness HEART : Tachycardic, systolic murmur ABDOMEN: Some distention, no tenderness, fluid wave EXTREMITIES : Minimal LE swelling without LE tenderness, no other conspicuous deformities noted NEUROLOGIC : Coherent, no facial asymmetry, no other gross focality Results & Data Results & Data Vital Signs (Past 12 Hours) Vital Signs Temp Pulse Pulse Resp BP BP Pulse Ox 08/30/24 21:56 99 H 21 98/56 L 96 08/30/24 20:27 102 H 22 106/64 100 08/30/24 19:30 100 08/30/24 18:58 98 H 11/01/24 18:46 36.7 C 102 H 20 102/63 100 08/30/24 18:46 100 08/30/24 18:46 36.7 C 101 H 20 102/63 100 08/30/24 18:46 O2 Del Method 08/30/24 21:56 Room Air 08/30/24 20:27 Room Air 08/30/24 19:30 Room Air 08/30/24 18:58 08/30/24 18:46 Room Air 08/30/24 18:46 Room Air 08/30/24 18:46 Room Air 08/30/24 18:46 Room Air Laboratory Results Laboratory Results WBC 5.07 K/ul (4.8-10.8) 08/30/24 18:48 RBC 2.78 M/uL (4.70-6.10) L 08/30/24 18:48 Hgb 9.8 g/dl (14.0-18.0) L 08/30/24 18:48 Hct 28.6 % (42.0-52.0) L 08/30/24 18:48 MCV 102.9 fL (80.0-100.0) H 08/30/24 18:48 MCH 35.3 pg (25.0-34.0) H 08/30/24 18:48 MCHC 34.3 g/dL (32.0-36.0) 08/30/24 18:48 RDW Std Deviation 61.1 fL (36.4-46.3) H 08/30/24 18:48 RDW Coeff of Polo 16.1 % (11.5-14.5) H 08/30/24 18:48 Plt Count 75 K/uL (130-400) L 08/30/24 18:48 MPV 10.5 fL (9.4-12.4) 08/30/24 18:48 Immature Gran % (Auto) 0.4 % 08/30/24 18:48 Neut % (Auto) 68.7 % 08/30/24 18:48 Lymph % (Auto) 10.8 % 08/30/24 18:48 [place] % (Auto) 13.6 % 08/30/24 18:48 Eos % (Auto) 4.9 % 08/30/24 18:48 Baso % (Auto) 1.6 % 08/30/24 18:48 Neut # (Auto) 3.48 K/uL (1.40-6.50) 08/30/24 18:48 Lymph # (Auto) 0.55 K/uL (1.20-3.40) L 08/30/24 18:48 [place] # (Auto) 0.69 K/uL (0.11-0.59) H 08/30/24 18:48 Eos # (Auto) 0.25 K/uL (0.00-0.50) 08/30/24 18:48 Baso # (Auto) 0.08 K/uL (0.00-0.20) 08/30/24 18:48 Immature Gran # (Auto) 0.02 K/uL (0.01-0.20) 08/30/24 18:48 Sodium 132 mmol/L (136-145) L 08/30/24 18:48 Potassium 3.1 mmol/L (3.5-5.1) L 08/30/24 18:48 Chloride 96 mmol/L (98-107) L 08/30/24 18:48 Carbon Dioxide 27 mmol/L (21-32) 08/30/24 18:48 Anion Gap 9 (3-11) 08/30/24 18:48 BUN 9 mg/dl (6-23) 08/30/24 18:48 Creatinine 1.03 mg/dl (0.6-1.4) 08/30/24 18:48 Est Cr Clr Drug Dosing 97.6 ml/min 08/30/24 18:48 eGFR 83.16 08/30/24 18:48 BUN/Creatinine Ratio 8.7 (10-20) L 08/30/24 18:48 Glucose 194 mg/dl (70-99(Fasting)) H 08/30/24 18:48 Calcium 8.0 mg/dl (8.6-10.3) L 08/30/24 18:48 Magnesium 1.5 mg/dl (1.7-2.4) L 08/30/24 18:48 Total Bilirubin 4.1 mg/dl (0.2-1.0) H 08/30/24 18:48 AST 40 U/L (13-39) H 08/30/24 18:48 ALT 18 U/L (7-52) 08/30/24 18:48 Alkaline Phosphatase 104 U/L (34-104) 08/30/24 18:48 Troponin I High Sens 10.6 pg/ml (0-20) 08/30/24 22:26 B-Natriuretic Peptide 62 pg/ml (0-100) 08/30/24 18:48 Total Protein 6.0 gm/dl (6.0-8.3) 08/30/24 18:48 Albumin 2.5 gm/dl (3.4-5.0) L 08/30/24 18:48 Globulin 3.5 gm/dl (2.5-4.0) 08/30/24 18:48 Albumin/Globulin Ratio 0.7 (0.9-2) L 08/30/24 18:48 Adenovirus (PCR) Not Detected (NotDetected) 08/30/24 19:22 B. pertussis DNA (PCR) Not Detected (NotDetected) 08/30/24 19:22 B.parapertussis DNA PCR Not Detected (NotDetected) 08/30/24 19:22 C. pneumoniae DNA (PCR) Not Detected (NotDetected) 08/30/24 19:22 Coronavirus OC43 (PCR) Not Detected (NotDetected) 08/30/24 19:22 Coronavirus HKU1 (PCR) Not Detected (NotDetected) 08/30/24 19:22 Coronavirus 229E (PCR) Not Detected (NotDetected) 08/30/24 19:22 SARS-CoV-2 (PCR) Not Detected (NotDetected) 08/30/24 19:22 Coronavirus NL63 (PCR) Not Detected (NotDetected) 08/30/24 19:22 Human Metapneumovir PCR Not Detected (NotDetected) 08/30/24 19:22 Influenza Type A (PCR) Not Detected (NotDetected) 08/30/24 19:22 Influenza Type B (PCR) Not Detected (NotDetected) 08/30/24 19:22 M. pneumoniae (PCR) Not Detected (NotDetected) 08/30/24 19:22 Parainfluenza 1 (PCR) Not Detected (NotDetected) 08/30/24 19:22 Parainfluenza 2 (PCR) Not Detected (NotDetected) 08/30/24 19:22 Parainfluenza 3 (PCR) Not Detected (NotDetected) 08/30/24 19:22 Parainfluenza 4 (PCR) Not Detected (NotDetected) 08/30/24 19:22 RSV (PCR) Not Detected (NotDetected) 08/30/24 19:22 Entero/Rhino (PCR) Not Detected (NotDetected) 08/30/24 19:22 CT chest: 1. No pulmonary embolism. 2. Moderate left pleural effusion. 3. Cirrhotic liver and ascites. Diagnostic Findings EKG as per my interpretation : Rate 100, NSR, normal axis, no ischemia
[2024-08-30] MEDS ORDERED: oxyCODONE HCL IR 5 MG TAB (IMMEDIATE RELEASE) PO PRN (23:26)
[2024-08-30] MEDS ORDERED: PROMETHAZINE 12.5 MG/50.5 ML BAG IV PRN (23:26)
[2024-08-30] MEDS: ALBUMIN 25% 25 GM/100 ML VIAL IV ONE (23:33)
--- NOTE | 2024-08-31 00:27 | XRay Report ---
Exam(s): XR CXR 1 VIEW EXAM: XR Chest, 1 View CLINICAL HISTORY: Reason for exam: Dyspnea. TECHNIQUE: Frontal view of the chest. COMPARISON: Prior chest x-ray from July 20, 2024. FINDINGS: Lungs: Moderate peribronchial thickening of the central lower lobe bronchi with increased interstitial opacities throughout the lungs. No consolidation. Pleural space: There is blunting left costophrenic angle. No pneumothorax. Heart: Unremarkable. No cardiomegaly. Mediastinum: Unremarkable. Normal mediastinal contour. Bones/joints: Unremarkable. No acute fracture. IMPRESSION: Bronchitis with pneumonitis, which may be of infectious or inflammatory etiologies. No consolidation. Tiny right left pleural effusion. Electronically signed by: Citlaly Corcoran MD 08/31/24 00:26 AM
--- NOTE | 2024-08-31 00:44 | CT Scan Report ---
Exam(s): CTA CHEST IV Amt: 83 ml opti 320 EXAM: CT Angiography Chest With Intravenous Contrast CLINICAL HISTORY: Reason for exam: Dyspnea. TECHNIQUE: Axial computed tomographic angiography images of the chest with intravenous contrast. CTDI is 28 mGy and DLP is 961 mGy-cm. Automated exposure control was utilized for the study. A dose lowering technique was utilized adhering to the principles of ALARA. MIP reconstructed images were created and reviewed. COMPARISON: 07/21/2024 FINDINGS: Pulmonary arteries: No pulmonary embolism. Aorta: No acute findings. Normal caliber. No dissection. Lungs: Compressive atelectasis in the left lung. The right lung is clear. No interstitial edema. No consolidation. Pleural space: Moderate left pleural effusion. Heart: Unremarkable. Bones/joints: No acute fracture. Soft tissues: Unremarkable. Lymph nodes: Unremarkable. Liver: Cirrhotic liver. Calcifications within the right hepatic lobe measuring up to 2.3 cm. Intraperitoneal space: Ascites in the upper abdomen. IMPRESSION: 1. No pulmonary embolism. 2. Moderate left pleural effusion. 3. Cirrhotic liver and ascites. Electronically signed by: Harris Gutierrez MD 08/31/24 00:43 AM
[2024-08-31] MEDS: rifAXIMin 550 MG TABLET PO SCH (00:53)
[2024-08-31] MEDS ORDERED: CARBOHYDRATES FOR HYPOGLYCEMIA PO PRN (01:52)
[2024-08-31] MEDS ORDERED: GLUCAGON FOR INJ 1 MG VIAL SQ PRN (01:52)
[2024-08-31] MEDS ORDERED: GLUCOSE 10 TAB/TUBE PO PRN (01:52)
[2024-08-31] MEDS ORDERED: DEXTROSE 50% 50 ML SYRINGE IV PRN (01:52)
[2024-08-31] MEDS ORDERED: GLUCOSE 40% GEL 15 GM TUBE PO PRN (01:52)
[2024-08-31] MEDS ORDERED: FUROSEMIDE 40 MG/4 ML VIAL IV ONE (02:00)
[2024-08-31] MEDS: POTASSIUM CHLORIDE CRTAB 20 MEQ TABCR PO STA (02:12)
[2024-08-31] MEDS: ALBUMIN 25% 25 GM/100 ML VIAL IV ONE (02:12)
[2024-08-31] MEDS: FUROSEMIDE 40 MG/4 ML VIAL IV ONE (02:13)
[2024-08-31] MEDS: MIDODRINE HCL 2.5 MG TAB PO STA (02:13)
[2024-08-31] MEDS: AMPICILLIN/SULBACTAM SOD 3,000 MG/100 ML BAG IV STA (02:19)
[2024-08-31] MEDS: LANTUS PER UNIT CHARGE SQ SCH (02:35)
[2024-08-31] MEDS: INSULIN ASPART PER UNIT CHARGE SC SCH (02:36)
--- NOTE | 2024-08-31 02:45 | CT Scan Report ---
EXAM: CT soft tissue neck wo con CLINICAL HISTORY: lt side jaw pain TECHNIQUE: Axial CT scan of the neck was performed without the administration of intravenous contrast. Sagittal and coronal reconstructions were obtained. One of the following dose reduction techniques were utilized for this exam: Automated exposure control, adjustment of the mA and/or kV according to patient size, and use of iterative reconstruction. COMPARISON: None. FINDINGS: Soft Tissues: Moderate to severe left-sided pleural effusion noted. No abnormal masses, swelling, or fluid collections. Nasopharynx: Prominent soft tissue mass in the adenoid region causing mild narrowing of the nasopharynx. Further assessment is advised. Oropharynx: Normal size and appearance. No masses. Larynx and Hypopharynx: Normal appearance of the laryngeal structures. Vocal cords are normal in appearance and movement. No masses. Thyroid Gland: A small hypodense lesion seen in the left lobe of the thyroid measuring about 5 x 4.6 x 7 mm. Better assessment by ultrasound is advised. Normal size and morphology. Salivary Glands: Parotid, submandibular, and sublingual glands are normal in size and appearance. No evidence of sialadenitis or masses. Lymph Nodes: No pathologically enlarged cervical lymph nodes. Normal appearance of the lymph node chains. Vascular Structures: Normal appearance of the carotid arteries, jugular veins, and other major vessels. No evidence of vascular malformations or aneurysms. Bones: Loss of normal lordosis of the cervical spine noted. No fractures, lytic or sclerotic lesions. Airway: The trachea and main bronchi are patent. No evidence of tracheal or bronchial stenosis or masses. IMPRESSION: 1. Moderate to severe left-sided pleural effusion noted. 2. Prominent soft tissue mass in the adenoid region causing mild narrowing of the nasopharynx. Further assessment is advised. 3. A small hypodense lesion seen in the left lobe of the thyroid measuring about 5 x 4.6 x 7 mm. Better assessment by ultrasound is advised. 4. Loss of normal lordosis of the cervical spine noted. 5. No pathology of the jaw noted. Electronically signed by Sheron Palomares 08-31-2024 02:45 AM
--- OUTSIDE RECORDS SUMMARY | 2024-08-31 03:22 | External Medical Summary | Summary of Care ---
Author Name Unknown Organization [facility] Address [address] [facility] [place] [address] Phone [phone] Care Team Providers Care Insurance Solicitor Name Role Phone Krystian Palomo MD Primary Care Provide r Encounter Details Date Type Department Care Team (Late st Contact Info) Description 2024 Orders Only Gastroenterology, [facility] [address] [place] [id number] Paige Barnes CRNP [address] [place] [address] Allergies Active Allergy Reactions Criticality Noted Date Comments Aspirin 01/28/2022 Other reaction(s): bloody nose Salicylates 08/08/2001 nose bleeds documented as of this encounter (statuses as of 2024) Medications Medication Sig Dispensed Refills Start Date End Date Status Multivitamin Adult Oral Tablet daily . 10/12/2021 Active Vitamin C 1000 MG Oral Tablet daily . 10/12/2021 Active Atorvastatin Calcium 20 MG Oral Tablet (Lipitor)Indications:H yperlipidemia with target LDL less than 100 Take 1 Tablet by mouth in the morning. 90 Tablet 1 07/11/2023 Active Insulin Glargine Solostar 100 UNIT/ML Subcutaneous Solution Pen-injector (Lantus SoloStar) Inject 10 Units under the skin daily. 15 mL 3 04/19/2024 Active Probiotic & Acidophilus Ex St Oral Capsule Take 1 Capsule by mouth in the morning and 1 Capsule at noon and 1 Capsule in the evening. Take with meals. Active Omeprazole 20 MG Oral Capsule Delayed Release (PriLOSEC)Indications: GERD (gastroesophageal reflux disease) Take 1 Capsule by mouth in the morning. 1 hour before the first meal of the day. 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 In the morning.. 90 Tablet 1 07/04/2024 Active Tamsulosin HCl 0.4 MG Oral Capsule (Flomax)Indications:Ur inary retention TAKE ONE CAPSULE BY MOUTH EVERY DAY 90 Capsule 1 07/04/2024 Active rifAXIMin 550 MG Oral Tablet (Xifaxan)Indications:L iver cirrhosis secondary to nonalcoholic steatohepatitis (GONZALES) (HCC) [...] 06/28/2024 Active Torsemide 20 MG Oral Tablet (Demadex)Indications:d ecreased from 40 at [facility] d/c 07.06.24 Take 1 Tablet by mouth in the morning. Active Midodrine HCl 2.5 MG Oral Tablet (Proamatine)Indication s:at [facility] d/c 07.06.24 Take 2 Tablets by mouth in the morning and 2 Tablets at noon and 2 Tablets in the evening. Active Magnesium Citrate 100 MG Oral Tablet Chewable Take 100 mg by mouth in the morning and 100 mg before bedtime. Patient states he increases to 3 pills if cramping is bad. Active Docusate Sodium 100 MG Oral Capsule (Colace) Take 1 Capsule by mouth in the morning and 1 Capsule before bedtime. Active Lactulose 10 GM/15ML Oral Solution (Constulose)Indication s:Hepatic encephalopathy (HCC) Take 45 mL by mouth in the morning and 45 mL at noon and 45 mL before bedtime. 4050 mL 1 07/31/2024 Active OneTouch Verio In Vitro Strip (Glucose Blood) Use to check blood sugars up to three times daily DxE11.9 300 Strip 3 08/07/2024 Active documented as of this encounter (statuses as of 2024) Active Problems Problem Noted Date Diagnosed Date [...] as of this encounter (statuses as of 2024) Resolved Problems Problem Noted Date Diagnosed Date [...] as of this encounter (statuses as of 2024) Immunizations Name Administration Dates Next Due COVID-19 [...] Adjuvanted, 65+ Yrs, IM (FLUAD) 07/30/2021 Seasonal Influenza Vac., MDV , IM, 0.5 mL (Fluzone) 07/30/2014,08/28/2013,08/13/2012,07/13,08/13/2009,08/13/2008 Seasonal Influenza, PF, 6 M & above, IM , (FluLaval or Fluzone) 07/30/2020,08/08/2018 Seasonal Influenza, Quadriva lent, No Preserve, IM 07/30/2023,06/30/2022,08/04/2017,07/29,08/30/2015 Seasonal Influenza, Trivalen t, (IIV3), PF, (Fluzone) 07/30/2019 TD - Tetanus/Diptheria (ADULT) 10/30/2004 TDAP, Age [...] Department Care Team (Latest Contact Info) Description 09/05/2024 8:16 AM EST Hospital Encounter OR [facility], Operating Room, [facility] - 4th Floor [address] [place] [id number] Jayla Armstrong MD [facility] [address] [place] [address] 09/05/2024 8:16 AM EST - 09/05/2024 8:52 AM EST Surgery OR [facility], Operating Room, [facility] - 4th Floor [address] [place] [address] Jayla Armstrong MD [address] [place] [address] ESOPHAGOGASTRODUODENOSCOPY (EGD), FLEXIBLE, TRANSORAL, DIAGNOSTIC 09/12/2024 9:30 AM EST Office Visit Pharmacy, [address] [place] [address] [place] [address] 10/18/2024 10:30 AM EST Office Visit Gastroenterology , [facility] [address] [place] [address] Ren Pineda CRNP [address] [place] [address] 10/28/2024 8:00 AM EST Office Visit Family Medicine [address] [address] Gaby Bey CRNP [address] [place] [address] [place] [address] 03/31/2025 4:00 PM EDT Office Visit Nephrology, [facility] [address] [facility] [place] [address] Fernando Reina MD [address] [place] [address] Scheduled Procedures Name Priority Associated Diagnoses Date/Ti me ESOPHAGOGASTRODUODENOSCOPY ( EGD), FLEXIBLE, TRANSORAL, DIAGNOSTIC Rios's esophagus 09/05/2024 8:16 AM EST COLONOSCOPY FLEXIBLE PROXIMA L DIAGNOSTIC Recall [...] 030 05/2024, 09/18/2023, Additional history exists GFR 08/20/2025 08/20/2024, 11/2023, 07/09/2024, Additional history exists Lipid Panel 09/18/2028 09/18/2023, [...] this encounter Medical Devices Implanted Type Area Dependency Case Manager Device Identifier Shelf Expiration Date Model / Serial / Lot Lipiodol Injection - [id number] Implanted:Qty: 1 on 08/02/2023 at [facility] [employer] 04/28/2026 [id number] Syr Pf 2ml Embospheres 100-300 - [id number] Implanted:Qty: 1 on 08/02/2023 at [facility] [employer] [id number] 02/26/2026 [id number] / / [id number] Syr Pf 2ml Embospheres 100-300 - [id number] Implanted:Qty: 1 on 04/11/2024 at [facility] [employer] [id number] 12/27/2026 S220GH / / [id number] Lipiodol Injection - [id number] Implanted:Qty: 1 on 04/11/2024 at [facility] [employer] [id number] -2 / / documented as of this encounter Care Teams Insurance Solicitor Relationship Specialty Start Date End Date Krystian Palomo MD [address] [place] [address] [place] [address] PCP - General Family Medicine 12/22/23 documented as of this encounter
--- OUTSIDE RECORDS SUMMARY | 2024-08-31 03:22 | External Medical Summary | Summary of Care ---
Author Name Unknown Organization [facility] Address [address] [facility] [place] [address] Phone [phone] Care Team Providers Care Apprentice Painter Hand Name Role Phone Krystian Palomo MD Primary Care Provide r Reason for Visit * Reason Onset Date Comments Test Results Lab 2024 Encounter Details Date Type Department Care Team (Late st Contact Info) Description 2024 Telephone Gastroenterology, [facility] [address] [place] [address] Paige Barnes CRNP [address] [place] [address] Test Results Lab Allergies Active Allergy Reactions Criticality Noted Date [...] Oral Tablet (Demadex)Indications:d ecreased from 40 at [facility] d/c 07.06.24 Take 1 Tablet by mouth in the morning. Active Midodrine HCl 2.5 MG Oral Tablet (Proamatine)Indication s:at [facility] d/c 07.06.24 Take 2 Tablets by mouth [...] GONZALES 07/05/2023 Hepatic encephalopathy 03/28/2022 Overview: admitted [facility], ammonia 110 Aortic stenosis, moderate 01/21/2022 [...] encounter Miscellaneous Notes * Telephone Encounter - Paige Barnes CRNP - 2024 2:23 PM EDT Tried calling pt again, no answer and mailbox is full. I will send [employer] message to increase Sodium Chloride tablet 1g bid (he's only taking it once daily). He may also incoorporate high potassium foods in diet. Repeat BMP in 1 week's time CONCHIS Everett * Telephone Encounter - Ana Root LPN - 2024 11:30 AM EDT Spoke with Lloyd to give him results and recommendations. Lloyd currently takes: Sodium Chloride tabs 1 gm daily Potassium Chloride 10 MEQ 2 caps BID * Telephone Encounter - Ana Root LPN - 2024 11:29 AM EDT ----- Message from Paige Barnes sent at 08/22/2024 4:25 PM EDT ----- Na 131 -> check if he's still on sodium chloride tabs. K 3.1 -> will start him on KCl 20meq daily, repeat BMP in 1 week's time Paige Funetes CONCHIS Barnes documented in this encounter Plan of Treatment Upcoming Encounters Date Type Department Care Team (Latest Contact Info) Description 09/05/2024 8:16 AM EST Hospital Encounter OR [facility], Operating Room, [facility] - 4th Floor [address] [place] [phone] Jayla Armstrong MD [address] [place] [address] 09/05/2024 8:16 AM EST - 09/05/2024 8:52 AM EST Surgery OR [facility], Operating Room, [facility] - 4th Floor [address] [place] [address] Jayla Armstrong MD [address] [place] [address] ESOPHAGOGASTRODUODENOSCOPY (EGD), FLEXIBLE, TRANSORAL, DIAGNOSTIC 09/12/2024 9:30 AM EST Office Visit Pharmacy, [address] [place] [address] [place] [address] 10/18/2024 10:30 AM EST Office Visit Gastroenterology , [facility] [address] [place] [address] Ren Pineda CRNP [address] [place] [address] 10/28/2024 8:00 AM EST Office Visit Family Medicine [address] [place], [place] [phone] Gaby Bey CRNP [address] [place] [address] [place] [address] 03/31/2025 4:00 PM EDT Office Visit Nephrology, Girish Marie[facility] [address] [place] [address] Fernando Reina MD [address] [place] [address] Scheduled Procedures Name Priority Associated Diagnoses Date/Ti [...] 03/16/2021, Additional history exists HbA1c 10/19/2024 04/19/2024, 05/2024, 09/18/2023, Additional history exists GFR 08/20/2025 [...] this encounter Medical Devices Implanted Type Area Swimming Professor Device Identifier Shelf Expiration Date Model / Serial / Lot Lipiodol Injection - [id number] Implanted:Qty: 1 on 08/02/2023 at [facility] [employer] 04/28/2026 [id number] Syr Pf 2ml Embospheres 100-300 - [id number] Implanted:Qty: 1 on 08/02/2023 at [facility] [employer] [id number] 02/26/2026 S220GH / / [id number] Syr Pf 2ml Embospheres 100-300 - [id number] Implanted:Qty: 1 on 04/11/2024 at [facility] [employer] [id number] 12/27/2026 S220GH / / [id number] Lipiodol Injection - [id number] Implanted:Qty: 1 on 04/11/2024 at [facility] [employer] [id number] -2 / documented as of this encounter Care Teams Apprentice Painter Hand Relationship Specialty Start Date End Date Krystian Palomo MD [address] [place] [address] [place] [phone] PCP - General Family Medicine 12/22/23 documented as of this encounter
--- OUTSIDE RECORDS SUMMARY | 2024-08-31 03:22 | External Medical Summary | Summary of Care ---
Author Name Unknown Organization [facility] [address] [facility] [address] Phone [phone] Care Team Providers Care Veterinary Surgeon Name Role Phone Krystian Palomo MD Primary Care Provide r Encounter Details Date Type Department Care Team (Late st Contact Info) Description 08/20/2024 Result Scan Unspecified Department Ren Pineda CRNP [address] [place] [address] <No scans attached> Allergies Active Allergy Reactions Criticality Noted Date Comments Aspirin 01/28/2022 Other reaction(s): bloody nose Salicylates 08/08/2001 nose bleeds documented as of this encounter (statuses as of 08/21/2024) Medications Medication Sig Dispensed Refills Start Date [...] Oral Tablet (Demadex)Indications:d ecreased from 40 at [facility] d/c 07.06.24 Take 1 Tablet by mouth in the morning. 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, Operating Room, [facility] - 4th Floor [address] [place] [address] Jayla Armstrong MD [facility] [place] [address] 09/05/2024 8:16 AM EST - 09/05/2024 8:52 AM EST Surgery OR [facility], Operating Room, [facility] - 4th Floor [address] [place] [address] Jayla Armstrong MD [facility] [address] [place] [address] ESOPHAGOGASTRODUODENOSCOPY (EGD), FLEXIBLE, TRANSORAL, DIAGNOSTIC 09/12/2024 9:30 AM EST Office Visit Pharmacy, [address] [place] [address] [place] [address] 10/18/2024 10:30 AM EST Office Visit Gastroenterology , [facility] [address] [place] [address] Ren Pineda CRNP [address] [place] [address] 10/28/2024 8:00 AM EST Office Visit Family Medicine [address] [place] [address] Gaby Bey CRNP [address] [place] [address] [place] [address] 03/31/2025 4:00 PM EDT Office Visit Nephrology, [facility] [address] [facility] [place] [address] Fernando Reina MD [address] [facility] [place] [address] Scheduled Procedures Name Priority Associated Diagnoses Date/Ti [...] this encounter Medical Devices Implanted Type Area Nuclear Plant Construction Worker Device Identifier Shelf Expiration Date Model / Serial / Lot Lipiodol Injection - [id number] Implanted:Qty: 1 on 08/02/2023 at [facility] [employer] 04/28/2026 [id number] Syr Pf 2ml Embospheres 100-300 - [id number] Implanted:Qty: 1 on 08/02/2023 at [facility] [employer] [id number] 02/26/2026 S220GH / / [id number] Syr Pf 2ml Embospheres 100-300 - [id number] Implanted:Qty: 1 on 04/11/2024 at [facility] [employer] [id number] 12/27/2026 S220GH / / [id number] Lipiodol Injection - [id number] Implanted:Qty: 1 on 04/11/2024 at [facility] [employer] [id number] 1 -2 / / documented as of this encounter Procedures Procedure Name Priority Date/Time Associated Diagnosis Comments RADIOLOGY SCANNED RESULT 08/20/2024 documented in this encounter Results * RADIOLOGY SCANNED RESULT (08/20/2024) 08/20/2024 Ren [facility]DERR[facility] [employer] documented in this encounter Care Teams Veterinary Surgeon Relationship Specialty Start Date End Date Krystian Palomo MD [address] [place] [address] [place] [address] PCP - General Family Medicine 12/22/23 documented as of this encounter
--- OUTSIDE RECORDS SUMMARY | 2024-08-31 03:22 | External Medical Summary | Summary of Care ---
Author Name Unknown Organization [facility] Address [address] [facility] [place] [address] Phone [phone] Care Team Providers Care Information Technology Director Name Role Phone Krystian Palomo MD Primary Care Provide r Encounter Details Date Type Department Care Team (Late st Contact Info) Description 08/21/2024 Orders Only Gastroenterology, [facility] [address] [place] [address] Ren Pineda CRNP [address] [place] [address] Allergies Active Allergy Reactions Criticality Noted Date Comments Aspirin 01/28/2022 Other reaction(s): bloody nose Salicylates 08/08/2001 nose bleeds documented as of this encounter (statuses as of 08/22/2024) Medications Medication Sig Dispensed Refills Start Date [...] Oral Tablet (Demadex)Indications:d ecreased from 40 at [facility] d/c 07.06.24 Take 1 Tablet by mouth in the morning. Active Midodrine HCl 2.5 MG Oral Tablet (Proamatine)Indication s:at [facility] d/c 07.06.24 Take 2 Tablets by mouth [...] as of this encounter (statuses as of 08/22/2024) Active Problems Problem Noted Date Diagnosed Date [...] as of this encounter (statuses as of 08/22/2024) Resolved Problems Problem Noted Date Diagnosed Date [...] as of this encounter (statuses as of 08/22/2024) Immunizations Name Administration Dates Next Due COVID-19 [...] as of this encounter Miscellaneous Notes * Result Encounter Note - Paige Barnes CRNP - 08/22/2024 4:25 PM EDT Na 131 -> check if he's still on sodium chloride tabs. K 3.1 -> check if he's still taking KCl 20meq bid. CONCHIS Everett documented in this encounter Plan of Treatment Upcoming Encounters Date Type Department Care Team (Latest Contact Info) Description 09/05/2024 8:16 AM EST [facility], [facility], [facility] - 4th Floor [address] [place] [phone] Jayla Armstrong MD [address] [place] [address] 09/05/2024 8:16 AM EST - 09/05/2024 8:52 AM EST [facility], Operating Room, [facility] - 4th Floor [address] [place] [phone] Jayla Armstrong MD [address] [place] [address] ESOPHAGOGASTRODUODENOSCOPY (EGD), FLEXIBLE, TRANSORAL, DIAGNOSTIC 09/12/2024 9:30 AM EST Office Visit Pharmacy, [address] [place] [address] [place] [address] 10/18/2024 10:30 AM EST Office Visit Gastroenterology , [facility] [address] [address] Ren Pineda CRNP [address] [place] [address] 10/28/2024 8:00 AM EST Office Visit Family Medicine [address] [place] [phone] Gaby Bey CRNP [address] [place] [address] [place] [address] 03/31/2025 4:00 PM EDT Office Visit Nephrology, [facility] [address] [facility] [address] [place] [address] Fernando Reina MD [address] [place] [address] Scheduled Procedures Name Priority Associated Diagnoses Date/Ti nv ESOPHAGOGASTRODUODENOSCOPY ( EGD), FLEXIBLE, TRANSORAL, DIAGNOSTIC Rios's [...] 03/0 05/2024, 09/18/2023, Additional history exists GFR 08/20/2025 08/20/2024, 10/0 11/2023, 07/09/2024, Additional history exists Lipid Panel [...] this encounter Medical Devices Implanted Type Area Director Airport Operations Device Identifier Shelf Expiration Date Model / Serial / Lot Lipiodol Injection - [id number] Implanted:Qty: 1 on 08/02/2023 at [facility] [employer] 04/28/2026 28164-332 [id number] Syr Pf 2ml Embospheres 100-300 - [id number] Implanted:Qty: 1 on 08/02/2023 at [facility] [employer] [id number] 02/26/2026 S220GH / / [id number] Syr Pf 2ml Embospheres 100-300 - [id number] Implanted:Qty: 1 on 04/11/2024 at [facility] [employer] [id number] 12/27/2026 S220GH / / [id number] Lipiodol Injection - [id number] Implanted:Qty: 1 on 04/11/2024 at [facility] [employer] [id number] - documented as of this encounter Procedures Procedure Name Priority Date/Time Associated Diagnosis Comments CHEMISTRY-OUTSIDE Routine 08/20/2024 documented in this encounter Results * (ABNORMAL) CHEMISTRY-OUTSIDE (08/20/2024) Not all results display below - see scan for full detail OUTSIDE LAB (SEE SCANNED REPORT) Comment:SCAN INCLUDES: BMP, PT INR, PTT, CBCD CREATININE 0.97 0.6 - 1.4 MG/DL OUTSIDE LAB (SEE SCANNED REPORT) EGFR 89.93 OUTSIDE LA B (SEE SCANNED REPORT) POTASSIUM 3.1(A) 3.5 - 5.1 MMOL/L OUTSIDE LAB (SEE SCANNED REPORT) GLUCOSE 120(A) 70 - 99 MG/DL OUTSIDE LAB (SEE [...] LAB OUTSIDE LAB (SEE SCANNED REPORT) HEMOGLOBIN, [id number] LAB OUTSIDE LAB (SEE SCANNED REPORT) PHOSPHORUS-OUTSID E LAB OUTSIDE LAB (SEE SCANNED REPORT) PTH-OUTSIDE LAB OUTS [place] LAB (SEE SCANNED REPORT) MICROALBUMIN RATIO-OUTSIDE LAB OUTSIDE LA B (SEE SCANNED REPORT) PROTEIN, UA-OUTSIDE LAB OUTSIDE LAB (SEE SCANNED REPORT) HGB 10.3(A) 14 - 18 G/DL OUTSIDE LAB (SEE SCANNED REPORT) 08/20/2024 Ren [facility] OUTSIDE LAB (SEE SCANNED REPORT) documented in this encounter Care Teams Information Technology Director Relationship Specialty Start Date End Date Krystian Palomo MD [address] [place] [address] [place] [address] PCP - General Family Medicine 12/22/23 documented as of this encounter
--- OUTSIDE RECORDS SUMMARY | 2024-08-31 03:22 | External Medical Summary | Summary of Care ---
Author Name Unknown Organization [facility] Address [address] [facility] [place] [address] Phone [phone] Care Team Providers Care Chief Orthoptist Name Role Phone Krystian Palomo MD Primary Care Provide r Encounter Details Date Type Department Care Team (Late st Contact Info) Description 08/22/2024 Orders Only Gastroenterology, [facility] [address] [place] [address] Paige Barnes CRNP [address] [place] [address] Other cirrhosis of liver (HCC)* Allergies Active Allergy Reactions Criticality Noted [...] Oral Tablet (Demadex)Indications:d ecreased from 40 at [facility] d/c 07.06.24 Take 1 Tablet by mouth in the morning. Active Midodrine HCl 2.5 MG Oral Tablet (Proamatine)Indication s:at [facility] d/c 07.06.24 Take 2 Tablets by mouth [...] before bedtime. 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 07/05/2023 Hepatic encephalopathy 03/28/2022 Overview: admitted [facility], ammonia 110 Aortic stenosis, moderate [...] 09/05/2024 8:16 AM EST Hospital Encounter OR [facility], Operating Room, [facility] - 4th Floor [address] [place] [address] Jayla Armstrong MD [address] [place] [address] 09/05/2024 8:16 AM EST - 09/05/2024 8:52 AM EST Surgery OR [facility], Operating Room, [facility] - 4th Floor [address] [place] [address] Jayla Armstrong MD [address] [place] [address] ESOPHAGOGASTRODUODENOSCOPY (EGD), FLEXIBLE, TRANSORAL, DIAGNOSTIC 09/12/2024 9:30 AM EST Office Visit Pharmacy, [address] [place] [address] [place] [address] 10/18/2024 10:30 AM EST Office Visit Gastroenterology , [facility] [place] [address] [place] [address] Ren Pineda CRNP [address] [place] [address] 10/28/2024 8:00 AM EST Office Visit Family Medicine [address] [address] Gaby Bey CRNP [address] [place] [address] [place] [address] 03/31/2025 4:00 PM EDT Office Visit Nephrology, [facility] [address] [place] [address] Fernando Reina MD [address] [place] [address] Scheduled Orders Name Type Priority Associated Diagnoses Orde r Schedule BASIC METABOLIC PANEL Lab Routine Other cirrhosis of liver (HCC) Expected: 08/29/2024, Expires: 08/22/2025 Scheduled Procedures Name Priority Associated Diagnoses Date/Ti me ESOPHAGOGASTRODUODENOSCOPY ( EGD), FLEXIBLE, TRANSORAL, DIAGNOSTIC Riso's esophagus 09/05/2024 8:16 AM EST COLONOSCOPY FLEXIBLE [...] this encounter Medical Devices Implanted Type Area Welfare Supervisor Device Identifier Shelf Expiration Date Model / Serial / Lot Lipiodol Injection - [id number] Implanted:Qty: 1 on 08/02/2023 at [facility] [employer] 04/28/2026 [id number] Syr Pf 2ml Embospheres 100-300 - [id number] Implanted:Qty: 1 on 08/02/2023 at [facility] [employer] [id number] 02/26/2026 S220GH / / [id number] Syr Pf 2ml Embospheres 100-300 - [id number] Implanted:Qty: 1 on 04/11/2024 at [facility] [employer] [id number] 12/27/2026 S220GH / / [id number] Lipiodol Injection - [id number] Implanted:Qty: 1 on 04/11/2024 at [facility] [employer] [id number] 1 -2 / / documented as of this encounter Visit Diagnoses Diagnosis Other cirrhosis of liver (HCC)- Primary Rios's esophagus documented in this encounter Care Teams Chief Orthoptist Relationship Specialty Start Date End Date Krystian Palomo MD [address] [place] [address] [place] [phone] PCP - General Family Medicine 12/22/23 documented as of this encounter
--- OUTSIDE RECORDS SUMMARY | 2024-08-31 03:22 | External Medical Summary | Summary of Care ---
Author Name Unknown Organization [facility] Address [address] [facility] [place] [address] Phone [phone] Care Team Providers Care Electronics Commodity Manager Name Role Phone Krystian Palomo MD Primary Care Provide r Reason for Visit * Reason Onset Date Comments Test Results Lab 2024 Encounter Details Date Type Department Care Team (Late st Contact Info) Description 2024 Telephone Gastroenterology, [facility] [address] [place] [address] Paige Barnes CRNP [address] [place] [address] Test Results Lab Allergies Active Allergy Reactions [...] Oral Tablet (Demadex)Indications:d ecreased from 40 at [facility] d/c 07.06.24 Take 1 Tablet by mouth in the morning. Active Midodrine HCl 2.5 MG Oral Tablet (Proamatine)Indication s:at [facility] d/c 07.06.24 Take 2 Tablets by mouth [...] daily, repeat BMP in 1 week's time CONCHIS Everett documented in this encounter Plan of Treatment Upcoming Encounters Date Type Department Care Team (Latest Contact Info) Description 09/05/2024 8:16 AM EST Hospital Encounter OR [facility], Operating Room, [facility] - 4th Floor [address] [place] [address] Jayla Armstrong MD [address] [place] [address] 09/05/2024 8:16 AM EST - 09/05/2024 8:52 AM EST Surgery OR [facility], Operating Room, [facility] - 4th Floor [address] [place] [address] Jayla Armstrong MD [address] [place] [address] ESOPHAGOGASTRODUODENOSCOPY (EGD), FLEXIBLE, TRANSORAL, DIAGNOSTIC 09/12/2024 9:30 AM EST Office Visit Pharmacy, [address] [place] [address] [place] [address] 10/18/2024 10:30 AM EST Office Visit Gastroenterology , [facility] [address] [facility] [place] [address] Ren Pineda CRNP 132 [facility] [place] [address] 10/28/2024 8:00 AM EST Office Visit Family Medicine [address] [place] [phone] Gaby Bey CRNP [address] [place] [address] [place] [address] 03/31/2025 4:00 PM EDT Office Visit Nephrology, [facility] [address] [place] [address] Fernando Reina MD [address] [place] [address] Scheduled Procedures Name Priority Associated Diagnoses Date/Ti [...] 09/18/2023, Additional history exists GFR 08/20/2025 08/20/2024, 100 11/2023, 07/09/2024, Additional history exists Lipid Panel [...] this encounter Medical Devices Implanted Type Area Oracle Applications Analyst Device Identifier Shelf Expiration Date Model / Serial / Lot Lipiodol Injection - [id number] Implanted:Qty: 1 on 08/02/2023 at [facility] [employer] 04/28/2026 [id number] -[id number] Syr Pf 2ml Embospheres 100-300 - [id number] Implanted:Qty: 1 on 08/02/2023 at [facility] [employer] [id number] 02/26/2026 S220GH / / [id number] Syr Pf 2ml Embospheres 100-300 - [id number] Implanted:Qty: 1 on 04/11/2024 at [facility] [employer] [id number] 12/27/2026 S220GH / / [id number] Lipiodol Injection - [id number] Implanted:Qty: 1 on 04/11/2024 at [facility] [employer] [id number] -2 / documented as of this encounter Care Teams Electronics Commodity Manager Relationship Specialty Start Date End Date Krystian Palomo MD [address] [place] [address] [place] [address] PCP - General Family Medicine 12/22/23 documented as of this encounter
--- OUTSIDE RECORDS SUMMARY | 2024-08-31 03:23 | External Medical Summary | Summary of Care ---
Author Name Unknown Organization [facility] Address [address] [facility] [place] [address] Phone [phone] Care Team Providers Care Basketball Referee Name Role Phone Krystian Palomo MD Primary Care Provide r Reason for Visit * Reason Onset Date Comments Order Request 08/07/2024 Encounter Details Date Type Department Care Team (Late st Contact Info) Description 08/07/2024 Telephone Centralized Clinical Pharmacy Services, Jennifer Maguire [address] [place] [address] [place] [address] [place] [address] Order Request Allergies Active Allergy Reactions Criticality Noted Date Comments Aspirin 01/28/2022 Other reaction(s): bloody nose Salicylates 08/08/2001 nose bleeds documented as of this encounter (statuses as of 08/07/2024) Medications Medication Sig Dispensed Refills Start Date [...] Oral Tablet (Demadex)Indications:d ecreased from 40 at [facility] d/c 07.06.24 Take 1 Tablet by mouth in the morning. Active Midodrine HCl 2.5 MG Oral Tablet (Proamatine)Indication s:at [facility] d/c 07.06.24 Take 2 Tablets by mouth [...] bedtime. 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 Crystal Lang RPh, PharmD Clinical Pharmacist - Crew Car Driver [facility] 08/07/2024, 4:33 PM Ph.[phone] * Telephone Encounter - Ivelisse Kuo PHARM Tech - 08/07/2024 12:15 PM EDT Caller's name: Lloyd Preferred call back number(OFFICE NUMBER FOR ): [phone] Reason for call: Pt calling to request order for One Touch Verio 1Q be sent to his pharmacy please. Thank you, Ivelisse Kuo [facility] Drier Tender Naphthalene II Centralized Clinical Pharmacy Services ([facility]) [phone] 08/07/2024,12:16 PM documented in this encounter Plan of Treatment Upcoming Encounters Date Type Department Care Team (Latest Contact Info) Description 09/05/2024 1:52 PM EST Hospital Encounter OR GL, Operating Room, [facility] - 4th Floor [address] [place] [phone] Jayla Armstrong MD [address] [place] [address] 09/05/2024 1:52 PM EST - 09/05/2024 2:28 PM EST Surgery OR GL, Operating Room, [facility] - 4th Floor [address] [place] [phone] Jayla Armstrong MD [address] [place] [address] ESOPHAGOGASTRODUODENOSCOPY (EGD), FLEXIBLE, TRANSORAL, DIAGNOSTIC 09/12/2024 9:30 AM EST Office Visit Pharmacy, [address] [place] [address] [place] [address] 10/18/2024 10:30 AM EST Office Visit Gastroenterology , [facility] [address] [facility] [place] [address] Ren Pineda CRNP [address] [place] [address] 10/28/2024 8:00 AM EST Office Visit Family Medicine [address] [place] [phone] Gaby Bey CRNP [address] [place] [address] [place] [address] 03/31/2025 4:00 PM EDT Office Visit Nephrology, [facility] [place] [address] Fernando Reina MD [address] [place] [address] Scheduled Procedures Name Priority Associated Diagnoses Date/Ti me ESOPHAGOGASTRODUODENOSCOPY ( EGD), FLEXIBLE, TRANSORAL, DIAGNOSTIC Rios's esophagus 09/05/2024 1:52 PM EST COLONOSCOPY FLEXIBLE PROXIMA L DIAGNOSTIC [...] 03/0 05/2024, 09/18/2023, Additional history exists GFR 07/31/2025 07/31/2024, 06/30, 06/18/2024, Additional history exists Lipid Panel 09/18/2028 09/18/2023, 0812/2022, 03/09/2022, Additional history exists Colonoscopy 01/10/2029 01/11/2024, [...] this encounter Medical Devices Implanted Type Area Cooling Tower Technician Device Identifier Shelf Expiration Date Model / Serial / Lot Lipiodol Injection - [id number] Implanted:Qty: 1 on 08/02/2023 at [facility] [employer] 04/28/2026 [id number] 1 -2 [id number] Syr Pf 2ml Embospheres 100-300 - [id number] Implanted:Qty: 1 on 08/02/2023 at [facility] [employer] [id number] 02/26/2026 S220GH / / [id number] Syr Pf 2ml Embospheres 100-300 - [id number] Implanted:Qty: 1 on 04/11/2024 at [facility] [employer] [id number] 12/27/2026 S220GH / / [id number] Lipiodol Injection - [id number] Implanted:Qty: 1 on 04/11/2024 at [facility] [employer] 00672-486 1 -2 / / documented as of this encounter Care Teams Basketball Referee Relationship Specialty Start Date End Date Krystian Palomo MD [address] [place] [address] [place] [phone] PCP - General Family Medicine 12/22/23 documented as of this encounter
--- OUTSIDE RECORDS SUMMARY | 2024-08-31 03:23 | External Medical Summary | Summary of Care ---
Author Name Unknown Organization [facility] Address [address] [facility] [place] [address] Phone [phone] Care Team Providers Care Marine Electronics Repairer Name Role Phone Krystian Palomo MD Primary Care Provide r Reason for Visit * Reason Onset Date Comments Test Results 08/01/2024 Encounter Details Date Type Department Care Team (Late st Contact Info) Description 08/01/2024 Telephone NephrologyGirish [address] [place] [address] Fernando Reina MD 200 [facility] [place] [address] Test Results Allergies Active Allergy Reactions Criticality Noted Date Comments Aspirin 01/28/2022 Other reaction(s): bloody nose Salicylates 08/08/2001 nose bleeds documented as of this encounter (statuses as of 08/01/2024) Medications Medication Sig Dispensed Refills Start Date [...] Oral Tablet (Demadex)Indications:d ecreased from 40 at [facility] d/c 07.06.24 Take 1 Tablet by mouth in the morning. Active Midodrine HCl 2.5 MG Oral Tablet (Proamatine)Indication s:at [facility] d/c 07.06.24 Take 2 Tablets by mouth [...] before bedtime. 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 Unable to leave message. Message sent via [employer] portal. * Telephone Encounter - Edith Serna RN - 08/01/2024 2:46 PM EDT ----- Message from Fernando Reina MD sent at 08/01/2024 2:07 PM EDT ----- Labs actually looked great. Bt tell him not to take more than 2 gm per day of salt tab. He is taking way more--that makes edema and ascites worse. documented in this encounter Plan of Treatment Upcoming Encounters Date Type Department Care Team (Latest Contact Info) Description 09/05/2024 1:52 PM EST Hospital Encounter OR GL, Operating Room, [facility] - 4th Floor [address] [place] [phone] Jayla Armstrong MD [address] [place] [address] [place] [address] 09/05/2024 1:52 PM EST - 09/05/2024 2:28 PM EST Surgery OR [facility], Operating Room, [facility] - 4th Floor [address] [place] [phone] Jayla Armstrong MD [address] [place] [address] [place] [address] ESOPHAGOGASTRODUODENOSCOPY (EGD), FLEXIBLE, TRANSORAL, DIAGNOSTIC 09/12/2024 9:30 AM EST Office Visit Pharmacy, [address] [place] [address] [place] [address] 10/18/2024 10:30 AM EST Office Visit [facility]ology , [facility] [place] [address] Ren [facility]a CRNP [facility] [place] [address] 10/28/2024 8:00 AM EST Office Visit Family Medicine [address] [place] [phone] Gaby Bey [address] [place] [address] 03/31/2025 4:00 PM EDT Office Visit Nephrology, [facility] [address] [facility] [place] [address] Fernando Reina MD [address] [place] [address] Scheduled Procedures Name Priority Associated Diagnoses Date/Ti [...] this encounter Medical Devices Implanted Type Area Bulk Cooler Installer Device Identifier Shelf Expiration Date Model / Serial / Lot Lipiodol Injection - [id number] Implanted:Qty: 1 on 08/02/2023 at [facility] [employer] 04/28/2026 [id number] 1 -2 \[id number] Syr Pf 2ml Embospheres 100-300 - [id number] Implanted:Qty: 1 on 08/02/2023 at [facility] [employer] [id number] 02/26/2026 S220GH / / [id number] Syr Pf 2ml Embospheres 100-300 - [id number] Implanted:Qty: 1 on 04/11/2024 at [facility] [employer] [id number] 12/27/2026 S220GH / / [id number] Lipiodol Injection - [id number] Implanted:Qty: 1 on 04/11/2024 at [facility] [employer] 60569-823 1 -2 / / documented as of this encounter Care Teams Marine Electronics Repairer Relationship Specialty Start Date End Date Krystian Palomo MD [address] [place] [address] [place] [phone] PCP - General Family Medicine 12/22/23 documented as of this encounter
--- OUTSIDE RECORDS SUMMARY | 2024-08-31 03:23 | External Medical Summary | Summary of Care ---
Author Name Unknown Organization [facility] Address [address] [place] [facility] [place] [address] Phone [phone] Care Team Providers Care Coating Machine Feeder Name Role Phone Krystian Palomo MD Primary Care Provide r Reason for Visit * Reason Comments Hospital Follow-Up Pt states feeling "g ood", they took 6 L of fluid on Monday, was told he needs to go back next Monday to have about 3 more L taken. 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 1 Active Atorvastatin Calcium 20 MG Oral Tablet (Lipitor)Indications :Hyperlipidemia with target LDL less than 100 Take 1 Tablet by mouth in the morning. 90 Tablet 1 3 Active Insulin Glargine Solostar 100 UNIT/ML Subcutaneous Solution Pen-injector (Lantus SoloStar) Inject 10 Units under the skin daily. 15 mL 3 4 Active Probiotic & Acidophilus Ex [...] (Demadex)Indications :decreased from 40 at hosp d/c 07.06.24 Take 1 Tablet by mouth in the morning. Active Midodrine HCl 2.5 MG Oral Tablet (Proamatine)Indicati ons:at hosp d/c 07.06.24 Take 2 Tablets by [...] bedtime. Active Lactulose 10 GM/15ML Oral Solution (Constulose)Indicati ons:Hepatic encephalopathy (HCC) TAKE 45ML THREE TIMES DAILY,IN THE MORNING, AT NOON, AND BEDFORE BEDTIME 4050 mL 5 3 07/31/20 24 Discontinu ed(Refill) Albumin Human 25 % Intravenous Solution Give 50Gms after paracentesis (if more than 5L are removed). May run at 100/hr. 100 mL 4 07/31/20 24 Discontinu ed(Dischar ged) Albuminex 25 % Intravenous Solution (Albumin Human-kjda)Indicatio [...] 3 units albumin 100 mL 10 4 07/31/20 24 Discontinu ed(ChristianaCared) Dexcom G7 Port Purser Device Use as directed to monitor blood sugars 1 Each 4 07/31/20 24 [facility] Dexcom G7 Sensor Use as directed to monitor blood sugars. Change every 10 days. 3 Each 3 4 07/31/20 24 Discontinu ed[facility]) Pen Bolton 32G X 4 MM Use as directed. Use to inject insulin once daily. 100 Each 3 4 07/31/20 24 Discontinu ed([facility] documented as of this encounter (statuses as [...] Sign Reading Time Taken Comments Blood Pressure 124/70 07/25/2024 8:55 AM EDT Pulse 122 07/25/2024 8:55 AM EDT Temperature - - Respiratory Rate - - Oxygen Saturation 100% 07/25/2024 8:55 AM EDT Inhaled Oxygen Concentration - - Weight 112.5 kg (248 lb) 07/25/2024 8:55 AM EDT Height - - Body Mass Index 35.08 06/20/2024 2:23 PM EDT documented in this encounter Progress Notes * Stanford Mays MD - 07/25/2024 8:48 AM EDT Lloyd was in [facility] 07/18 to 07/22 for ascites, abdominal pain, constipation, and left pleural effusion. They tapped him for 6 liters and plan on taking more next week. He can at least eat now. Not sureof meds. Bowels are moving now. He is taking Miralax and lactulose as well. Breathing is ok. Lung doctor was pleased. Cardiology is interested in doing dobutamine stress. 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 Blood type A+ 09/21/2023 BMI 35.0-35.9,adult Cancer, hepatocellular (HCC) Diverticulitis of colon Diverticulosis of colon DM type 2, goal A1c below 7 02/26/2010 HGBA1C 7.5 Family history of colon cancer Mother, Neema [facility] Fracture of rib of right side 12/21/2013 cortical fx anterior right 9th rib Gout 08/08/2001 uric acid 9.0 Hepatic encephalopathy (HCC) 03/28/2022 admitted [facility], ammonia 110 Hyperlipidemia LDL goal < 100 Infection due to human metapneumovirus (hMPV) 01/27/2020 COVID neg Ingrown toenail of both feet 04/04/2022 both big toenails trimmed for ingrown nails [place] 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 [facility] Past Surgical History: Procedure Laterality Date ABD/PELVIS CT W/O IV AND W/O PO CONTRAST 03/30/2010 diverticulitis, [facility] CHG CT HEAD/BRAIN W/O CONTRAST MATERIAL 02/27/2024 no acute changes to explain encephalopathy COLONOSCOPY, DIAGNOSTIC (RECTUM) 06/07/2019 normal, repeat 5 yrs/[facility] COLONOSCOPY, DIAGNOSTIC (RECTUM) N/A 01/11/2024 hemorrhoids/recall 5 years/Colonoscopy/[place] COLORECTAL CANCER SCREEN; COLON 05/22/2010 wnl , [...] performed by Gerardo Workman MD at ENDOSCOPY [facility] EGD, FLEXIBLE, DIAGNOSTIC 07/04/2023 Portal hypertensive gastropathy., esophagus and duodenuum normal (EGD), FLEXIBLE, TRANSORAL, DIAGNOSTIC performed by Juli Krause DO at ENDOSCOPY [facility] FOBT (EIA) 08/27/2023 negative IR CANCER CHEMO EMBOLIZATION (TACE) 08/02/2023 IR CANCER CHEMO EMBOLIZATION (TACE) 04/11/2024 IR PROCEDURE NOT PERFORMED DOCUMENTATION ONLY 06/18/2024 MRI ABDOMEN W CONTRAST 06/09/2023 2 spots in liver suggestive of hepatocellular carcinoma, varices, GB thickened, splenomegaly. 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 90 Tablet 1 Albumin Human 25 % Intravenous Solution Give 50Gms after paracentesis (if more than 5L are removed). May run at 100/hr. (Patient not taking: Reported on 06/20/2024) 100 mL 0 Albuminex 25 % Intravenous Solution (Albumin Human-kjda) [...] 12 L - Give 3 units albumin (Patient not taking: Reported on 06/20/2024) 100 mL 10 Dexcom G7 Port Purser Device Use as directed to monitor blood sugars (Patient not taking: Reported on 06/20/2024) 1 Each 0 Dexcom G7 Sensor Use as directed to monitor blood sugars. Change every 10 days. (Patient not taking: Reported on 06/20/2024) 3 Each 3 Insulin Glargine Solostar 100 UNIT/ML Subcutaneous Solution Pen-injector (Lantus SoloStar) Inject 10 Units under the skin daily. 15 mL 3 Pen Bolton 32G X 4 MM Use as directed. Use to inject insulin once daily. (Patient not taking: Reported on 06/20/2024) 100 Each 3 Probiotic & Acidophilus Ex St Oral Capsule Take 1 Capsule by mouth in the morning and 1 Capsuleat noon and 1 Capsule in the evening. Take with meals. Omeprazole 20 MG Oral Capsule Delayed Release (PriLOSEC) Take 1 Capsule by mouth in the morning. 1 hour before the first meal of the day. 90 Capsule 1 Allopurinol 300 MG Oral Tablet (Zyloprim) Take 1 Tablet by mouth in the morning. In the morning.. 90 Tablet 1 Tamsulosin HCl 0.4 MG Oral Capsule (Flomax) TAKE ONE CAPSULE BY MOUTH EVERY DAY 90 Capsule 1 rifAXIMin 550 MG Oral Tablet (Xifaxan) TAKE ONE TABLET BY MOUTH EVERY MORNING AND ONE TABLET AT BEDTIME 60 Tablet 12 Mupirocin 2 % External Ointment (Bactroban) Apply topically to affected area 3 times a day. At hospital discharge 22 g 1 Potassium Chloride [facility] ER 10 MEQ Oral Tablet Extended Release Take 2 Tablets by mouth in the morning and 2 Tablets before bedtime. Sodium Chloride 1 GM Oral Tablet Take 1 Tablet by mouth in the morning and 1 Tablet before bedtime. Torsemide 20 MG Oral Tablet (Demadex) Take 1 Tablet by mouth in the morning. Midodrine HCl 2.5 MG Oral Tablet (Proamatine) Take 2 Tablets by mouth in the morning and 2 Tablets at noon and 2 Tablets in the evening. Magnesium Citrate 100 MG Oral Tablet Chewable Take 100 mg by mouth in the morning and 100 mg beforebedtime. Patient states he increases to 3 pills if cramping is bad. Docusate Sodium 100 MG Oral Capsule (Colace) Take 1 Capsule by mouth in the morning and 1 Capsule before bedtime. No current facility-administered medications for this visit. O: Blood pressure 124/70, pulse 122, weight 112.5 kg (248 lb), SpO2 100%. Neck is supple without adenopathy or thyromegaly. Chest is symmetrical and moves normally. The lungs are clear without wheezes, rales, rhonchi or rubs, and the heart is regular without murmurs or gallops, or ectopy. PMI not displaced. I hear breath sounds at left base. Walking better with cane. 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 | For: Clinic Visit | Check-out note: Needs follow up with Dr oDbson. documented in this encounter Plan of Treatment Upcoming Encounters Date Type Department Care Team (Latest Contact Info) Description 08/01/2024 9:30 AM EDT Office Visit Pharmacy, [address] [place] [address] [place] [address] 09/05/2024 1:52 PM EST Hospital Encounter OR [facility], Operating Room, [facility] - 4th Floor [address] [place] [phone] Jayla Armstrong MD [address] [place] [address] 09/05/2024 1:52 PM EST - 09/05/2024 2:28 PM EST Surgery OR [facility], Operating Room, [facility] - 4th Floor [address] [phone] Jayla Armstrong MD [address] [place] [address] ESOPHAGOGASTRODUODENOSCOPY (EGD), FLEXIBLE, TRANSORAL, DIAGNOSTIC 10/18/2024 10:30 AM EST Office Visit Gastroenterology , [facility] [address] [place] [address] Ren Pineda CRNP [address] [place] [address] 10/28/2024 8:00 AM EST Office Visit Family Medicine [address] [place] [phone] Gaby Bey [address] [place] [address] 03/31/2025 4:00 PM EDT Office Visit Nephrology, [facility] [address] [facility] [place] [address] Fernando Reina MD [address] [place] [address] Scheduled Procedures Name Priority Associated Diagnoses Date/Ti [...] this encounter Medical Devices Implanted Type Area Frame Builder Device Identifier Shelf Expiration Date Model / Serial / Lot Lipiodol Injection - [id number] Implanted:Qty: 1 on 08/02/2023 at [facility] [employer] 04/28/2026 [id number] 1 [id number] Syr Pf 2ml Embospheres 100-300 - [id number] Implanted:Qty: 1 on 08/02/2023 at [facility] [employer] [id number] 02/26/2026 S220GH / / [id number] Syr Pf 2ml Embospheres 100-300 - [id number] Implanted:Qty: 1 on 04/11/2024 at [facility] [employer] [id number] 12/27/2026 S220GH / / [id number] Lipiodol Injection - [id number] Implanted:Qty: 1 on 04/11/2024 at [facility] [employer] [id number] 1 -2 / / documented as of this encounter Visit Diagnoses Diagnosis 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
--- OUTSIDE RECORDS SUMMARY | 2024-08-31 03:23 | External Medical Summary | Summary of Care ---
Author Name Unknown Organization [facility] Address [address] [facility] [place] [address] Phone [phone] Care Team Providers Care Certified Dietary Manager Name Role Phone Krystian Palomo MD Primary Care Provide r Encounter Details Date Type Department Care Team (Late st Contact Info) Description 08/06/2024 Orders Only Family Medicine [address] [place] [address] Krystian Palomo MD [address] [place] [address] [place] [address] Allergies Active Allergy Reactions Criticality Noted Date Comments Aspirin 01/28/2022 Other reaction(s): bloody nose Salicylates 08/08/2001 nose bleeds documented as of this encounter (statuses as of 08/06/2024) Medications Medication Sig Dispensed Refills Start Date [...] Oral Tablet (Demadex)Indications:d ecreased from 40 at [facility] d/c 07.06.24 Take 1 Tablet by mouth in the morning. 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 - 4th Floor [address] [place] [address] Jayla Armstrong MD [facility] [employer] [place] [address] 09/05/2024 1:52 PM EST - 09/05/2024 2:28 PM EST Surgery OR [facility], Operating Room, [facility] Floor [address] [place] [address] Jayla Armstrong MD [facility] [employer] [place] [address] ESOPHAGOGASTRODUODENOSCOPY (EGD), FLEXIBLE, TRANSORAL, DIAGNOSTIC 09/12/2024 9:30 AM EST Office Visit Pharmacy, [address] [place] [address] [place] [address] 10/18/2024 10:30 AM EST Office Visit Gastroenterology , [address] [place] [address] Ren Pineda CRNP [address] [place] [address] 10/28/2024 8:00 AM EST Office Visit Family Medicine [address] [place] [address] Gaby Bey CRNP [address] [place] [address] [place] [address] 03/31/2025 4:00 PM EDT Office Visit Nephrology, [facility] 200 [facility] [place] [address] Fernando Reina MD [address] [place] [address] Scheduled Procedures Name Priority Associated Diagnoses Date/Ti [...] 030 05/2024, 09/18/2023, Additional history exists GFR 07/31/2025 [...] this encounter Medical Devices Implanted Type Area Seam Hammerer Device Identifier Shelf Expiration Date Model / Serial / Lot Lipiodol Injection - [id number] Implanted:Qty: 1 on 08/02/2023 at [facility] [employer] 04/28/2026 [id number] Syr Pf 2ml Embospheres 100-300 - [id number] Implanted:Qty: 1 on 08/02/2023 at [facility] [employer] [id number] 02/26/2026 S220GH / / [id number] Syr Pf 2ml Embospheres 100-300 - [id number] Implanted:Qty: 1 on 04/11/2024 at [facility] [employer] [id number] 12/27/2026 S220GH / / [id number] Lipiodol Injection - [id number] Implanted:Qty: 1 on 04/11/2024 at [facility] [place] [place] [id number] -2 / / documented as of this encounter Procedures Procedure Name Priority Date/Time Associated Diagnosis Comments CHEMISTRY-OUTSIDE Routine 08/05/2024 documented in this encounter Results * (ABNORMAL) CHEMISTRY-OUTSIDE (08/05/2024) Not all results display below - see scan for full detail OUTSIDE LAB (SEE SCANNED REPORT) Comment:SCAN INCL: CBCD CREATININE OUTSIDE L AB (SEE SCANNED REPORT) EGFR OUTSIDE LA B (SEE SCANNED REPORT) POTASSIUM OUTSIDE LA B (SEE SCANNED REPORT) GLUCOSE OUTSIDE LA B (SEE SCANNED REPORT) HOURS FASTING OUTSID E LAB (SEE SCANNED REPORT) TRIGLYCERIDES-OUT SIDE LAB OUTSIDE LAB (SEE SCANNED REPORT) CHOLESTEROL-OUTSI DE LAB OUTSIDE LAB (SEE SCANNED REPORT) HDL-OUTSIDE LAB OUTS [place] LAB (SEE SCANNED REPORT) CHOL/HDL RATIO-OUTSIDE LAB OUTSIDE LA B (SEE SCANNED REPORT) LDL (CALCULATED)-OUTS [place]ESLIE LAB OUTSIDE LAB (SEE SCANNED REPORT) LDL (DIRECT MEASURE)-OUTSIDE LAB OUTSIDE LAB (SEE SCANNED REPORT) HEMOGLOBIN, [id number] LAB OUTSIDE LAB (SEE SCANNED REPORT) PHOSPHORUS-OUTSID E LAB OUTSIDE LAB (SEE SCANNED REPORT) PTH-OUTSIDE LAB OUTS [place] LAB (SEE SCANNED REPORT) MICROALBUMIN RATIO-OUTSIDE LAB OUTSIDE LA B (SEE SCANNED REPORT) PROTEIN, UA-OUTSIDE LAB OUTSIDE LAB (SEE SCANNED REPORT) HGB 10.8(A) 14.0 - 18.0 G/DL OUTSIDE LAB (SEE SCANNED REPORT) 08/05/2024 [facility] OUTSIDE LAB (SEE SCANNED REPORT) documented in this encounter Care Teams Certified Dietary Manager Relationship Specialty Start Date End Date Krystian Palomo MD [address] [place] [address] [place] [address] PCP - General Family Medicine 12/22/23 documented as of this encounter
--- OUTSIDE RECORDS SUMMARY | 2024-08-31 03:23 | External Medical Summary ---
Author Name Unknown Address Unknown Organization K01:[facility] - [address] [facility] [place] [address] Laboratory Report Ordering Provider Test Date Status PANCHITO PERRY 08/01/2024 09:21:30 Final Observation Date Value Abnormality Reference (Units ) Status Color of Urine by Auto 08/01/2024 09:21:30 Yellow Colorless, Light Yellow, Yellow, Dark Yellow Final Clarity, Urine 08/01/2024 09:21:30 Slightly Cloudy Abnormal Clear Final Glucose [Mass/volume] in Urine by Automated test strip 08/01/2024 09:21:30 Negative Negative (mg/dL) Final Bilirubin.total [Presence] in Urine by Automated test strip 08/01/2024 09:21:30 Negative Negative Final Ketones [Mass/volume] in Urine by Automated test strip 08/01/2024 09:21:30 Negative Negative (mg/dL) Final Specific gravity, Urine 08/01/2024 09:21:30 1.018 1.003-1.030 Final Hemoglobin [Presence] in Urine by Automated test strip 08/01/2024 09:21:30 Negative Negative Final pH, Urine 08/01/2024 09:21:30 5.5 5.0-7.5 (Units) Final Protein [Mass/volume] in Urine by Automated test strip 08/01/2024 09:21:30 Trace Abnormal Negative (mg/dL) Final Urobilinogen [Mass/volume] in Urine by Automated test strip 08/01/2024 09:21:30 Normal Normal (mg/dL) Final Nitrite [Presence] in Urine by Automated test strip 08/01/2024 09:21:30 Negative Negative Final Leukocyte esterase [Presence] in Urine by Automated test strip 08/01/2024 09:21:30 Negative Negative Final RBC, Urine 08/01/2024 09:21:30 0-2 0-2 (/HPF) Final WBC, Urine 08/01/2024 09:21:30 0-2 0-2 (/HPF) Final Bacteria [#/area] in Urine sediment by Microscopy high power field 08/01/2024 09:21:30 0-25 0-25 (/HPF) Final Hyaline casts, Urine 08/01/2024 09:21:30 1-4 Abnormal None (/LPF) Final Performing Location [facility] - [facility] [address]. [facility] [address]
--- OUTSIDE RECORDS SUMMARY | 2024-08-31 03:23 | External Medical Summary | Summary of Care ---
Author Name Unknown Organization [facility] Address [address] [facility] [place] [address] Phone [phone] Care Team Providers Care Moccasin Sewer Name Role Phone Krystian Palomo MD Primary Care Provide r Reason for Visit * Reason Comments Outpatient Testing Encounter Details Date Type Department Care Team (Late st Contact Info) Description 08/01/2024 9:20 AM EDT Laboratory Laboratory [address] [place] [phone] , Specimen Drop Off [address] [place] [id number] Hyponatremia Allergies Active Allergy Reactions Criticality Noted Date [...] CAPSULE BY MOUTH EVERY DAY 90 Capsule 07/04/2024 Active rifAXIMin 550 MG Oral Tablet [...] Oral Tablet (Demadex)Indications:d ecreased from 40 at [facility] d/c 07.06.24 Take 1 Tablet by mouth in the morning. Active Midodrine HCl 2.5 MG Oral Tablet (Proamatine)Indication s:at [facility] d/c 07.06.24 Take 2 Tablets by mouth [...] 09/05/2024 1:52 PM EST Hospital Encounter OR [facility], Operating Room, [facility] - 4th Floor [address] [place] [address] Jayla Armstrong MD [address] [place] [address] 09/05/2024 1:52 PM EST - 09/05/2024 2:28 PM EST Surgery OR [facility], Operating Room, [facility] - 4th Floor [address] [place] [address] Jayla Armstrong MD [address] [place] [address] ESOPHAGOGASTRODUODENOSCOPY (EGD), FLEXIBLE, TRANSORAL, DIAGNOSTIC 10/18/2024 10:30 AM EST Office Visit Gastroenterology , [facility] 132 [place] [address] Ren Pineda CRNP 132 [place] [address] 10/28/2024 8:00 AM EST Office Visit Family Medicine [address] [place] [phone] Gaby Bey [address] [place] [address] 03/31/2025 4:00 PM EDT Office Visit [facility]irish [facility] [place] [address] Fernando Reina MD [address] [place] [address] Pending Results Name Type Priority Associated Diagnoses Date /Time URINALYSIS WITH MICROSCOPIC EXAM Lab Routine Hyponatremia 08/01/2024 9:21 AM EDT Scheduled Procedures Name Priority Associated Diagnoses Date/Ti sc ESOPHAGOGASTRODUODENOSCOPY ( EGD), FLEXIBLE, TRANSORAL, DIAGNOSTIC Rios's [...] 04/19/2024, 05/2024, 09/18/2023, Additional history exists GFR 07/31/2025 [...] this encounter Medical Devices Implanted Type Area Systems Integration Advisor Device Identifier Shelf Expiration Date Model / Serial / Lot Lipiodol Injection - [id number] Implanted:Qty: 1 on 08/02/2023 at [facility] [employer] 04/28/2026 [id number] 1 [id number] Syr Pf 2ml Embospheres 100-300 - [id number] Implanted:Qty: 1 on 08/02/2023 at [facility] [employer] [id number] 02/26/2026 S220GH / / [id number] Syr Pf 2ml Embospheres 100-300 - [id number] Implanted:Qty: 1 on 04/11/2024 at [facility] [employer] [id number] 12/27/2026 S220GH / / [id number] Lipiodol Injection - [id number] Implanted:Qty: 1 on 04/11/2024 at [facility] [place] [id number] - documented as of this encounter Visit Diagnoses Diagnosis Hyponatremia Hyposmolality and/or hyponatremia Rios's esophagus documented in this encounter Care Teams Moccasin Sewer Relationship Specialty Start Date End Date Krystian Palomo MD [address] [place] [address] [place] [address] PCP - General Family Medicine 12/22/23 documented as of this encounter
--- OUTSIDE RECORDS SUMMARY | 2024-08-31 03:23 | External Medical Summary | Summary of Care ---
Author Name Unknown Organization [facility] Address [address] [place] [address] Phone [phone] Care Team Providers Care Certified Public Accountant Name Role Phone Krystian Collier MD Primary Care Provide r Reason for Visit * Reason Onset Date Comments Medication Refill 07/31/2024 Encounter Details Date Type Department Care Team (Late st Contact Info) Description 07/31/2024 Refill Palliative Medicine, [facility] 400 [facility] 5th [place] [address] Liliana Lo PA-C [address] [place], [place] [phone] Hepatic encephalopathy (HCC) Allergies Active Allergy Reactions Criticality Noted Date Comments Aspirin 01/28/2022 Other reaction(s): bloody nose Salicylates 08/08/2001 nose bleeds documented as of this encounter (statuses as of 07/31/2024) Medications Medication Sig Dispensed Refills Start Date [...] removed). May run at 100/hr. 100 mL 01/11/202 4 Active Additional Information Patient not taking.Reported [...] Patient not taking.Reported on 06/20/2024 Dexcom G7 Asphalt Screed Operator Device Use as directed to monitor [...] daily. 15 mL 3 4 Active Pen [place] 32G X 4 MM Use as directed. [...] GM/15ML Oral Solution (Constulose)Indicati ons:Hepatic encephalopathy (HCC) Take 45 mL by mouth in the morning and 45 mL at noon and 45 mL before bedtime. 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 07/05/2023 Hepatic encephalopathy 03/28/2022 Overview: admitted [facility], ammonia 110 Aortic stenosis, moderate 01/21/2022 [...] as of this encounter (statuses as of 07/31/2024) Resolved Problems Problem Noted Date Diagnosed Date [...] as of this encounter (statuses as of 07/31/2024) Immunizations Name Administration Dates Next Due COVID-19 [...] Miscellaneous Notes * Telephone Encounter - Krystian Collier MD - 07/31/2024 11:01 AM EDT Signed Prescriptions: Disp Refills Lactulose 10 GM/15ML Oral Solution (Constu*4050 mL1 Sig: Take 45 mL by mouth in the morning and 45 mL at noon and 45 mL before bedtime. Authorizing Provider: KRYSTIAN COLLIER * Telephone Encounter - Ellie De La Torre LPN - 07/31/2024 10:30 AM EDTPending Prescriptions: Disp Refills Lactulose 10 GM/15ML Oral Solution (Constu*4050 mL5 documented in this encounter Plan of Treatment Upcoming Encounters Date Type Department Care Team (Latest Contact Info) Description 07/31/2024 1:00 PM EDT Office Visit Nephrology, [address] [place], [place] [address] Fernando Reina MD [address] [place], [place] [address] 08/01/2024 9:30 AM EDT Office Visit Pharmacy, [address] [place] [address] [place] [address] 09/05/2024 1:52 PM EST Hospital Encounter OR [facility], Operating Room, [facility] - 4th Floor [address] [place] [phone] Jayla Armstrong MD [address] [place] [address] 09/05/2024 1:52 PM EST - 09/05/2024 2:28 PM EST Surgery OR [facility], Operating Room, [facility] - 4th Floor [address] [place] [phone] Jayla Armtsrong MD [address] [place] [address] ESOPHAGOGASTRODUODENOSCOPY (EGD), FLEXIBLE, TRANSORAL, DIAGNOSTIC 10/18/2024 10:30 AM EST Office Visit Gastroenterology , [facility] 132 [facility] [place] [address] Ren Pineda CRNP 132 [facility] [place] [address] 10/28/2024 8:00 AM EST Office Visit Family Medicine [address] [place] [address] Gaby Bey CRNP [address] [place] [address] [place] [address] Scheduled Procedures Name Priority Associated Diagnoses Date/Ti [...] 09/18/2023, Additional history exists GFR 07/09/2025 07/09/2024, 082 , 06/04/2024, Additional history exists Lipid Panel [...] this encounter Medical Devices Implanted Type Area Butter Fat Tester Device Identifier Shelf Expiration Date Model / Serial / Lot Lipiodol Injection - [id number] Implanted:Qty: 1 on 08/02/2023 at [facility] [employer] 04/28/2026 [id number] 1 -2 [id number] Syr Pf 2ml Embospheres 100-300 - [id number] Implanted:Qty: 1 on 08/02/2023 at [facility] [employer] [id number] 02/26/2026 S220GH / / [id number] Syr Pf 2ml Embospheres 100-300 - [id number] Implanted:Qty: 1 on 04/11/2024 at [facility] [employer] [id number] 12/27/2026 S220GH / / [id number] Lipiodol Injection - [id number] Implanted:Qty: 1 on 04/11/2024 at [facility] [employer] [address]407 1 -2 documented as of this encounter Visit Diagnoses Diagnosis Hepatic encephalopathy (HCC) Hepatic encephalopathy Rios's esophagus documented in this encounter Care Teams Certified Public Accountant Relationship Specialty Start Date End Date Krystian Collier MD [address] [place] [address] [place] [phone] PCP - General Family Medicine 12/22/23 documented as of this encounter
--- OUTSIDE RECORDS SUMMARY | 2024-08-31 03:23 | External Medical Summary | Summary of Care ---
Author Name Unknown Organization [facility] Address [address] [facility] [place] [address] Phone [phone] Care Team Providers Care Expanded Function Dental Assistant Name Role Phone Krystian Palomo MD Primary Care Provide r Reason for Visit * Reason Comments Dosage Adjustment In Person (Anticoag Cl inic) Diabetes Follow-Up Encounter Details Date Type Department Care Team (Late st Contact Info) Description 08/01/2024 9:30 AM EDT Office Visit Pharmacy, [address] [place] [address] [place] [address] Type 2 diabetes mellitus with hemoglobin A1c goal of less than 7.0% ([facility])* Allergies Active Allergy Reactions Criticality Noted [...] Oral Tablet (Demadex)Indications:d ecreased from 40 at [facility] d/c 07.06.24 Take 1 Tablet by mouth in the morning. Active Midodrine HCl 2.5 MG Oral Tablet (Proamatine)Indication s:at [facility] d/c 07.06.24 Take 2 Tablets by mouth [...] this encounter Progress Notes * Crystal Lang, [facility] - 08/01/2024 9:33 AM EDT Medication Therapy Disease Management Clinic - Diabetes Management Progress Note Lloyd Spencer, identified by name and date of , is a 58 year old male being seen for diabetes management/education. Patient presents for return diabetic visit. DIABETES: Current diabetic medications: Lantus 10 units daily eGFR 86 as of 06/04/24 Medication Injection Site: Abdomen Lifestyle: Diet: unchanged Glucose Review/SMBG: Not available Hypoglycemia: Does your blood sugar go below 70 mg/dL? Denies Hyperglycemia symptoms present: none Recent Labs Units 04/19/24 1324 01/05/24 0822 09/18/23 1141 HEMOGLOBIN A1C - [facility] % 8.4* 7.0* 5.9* Recent Labs Units 07/31/24 1322 07/09/24 0000 06/18/24 0720 ESTIMATED GLOMERULAR FILTRATION RATE - [facility] mL/min 80 73.1 >90 CREATININE - [facility] mg/dL 1.1 1.10 1.0 HYPERTENSION: Patient on ACEi/ARB: no, stopped during hospital admission BP Readings from Last 3 Encounters: 07/31/24 87/64 07/25/24 124/70 06/18/24 111/48 Blood pressure at goal: yes HYPERLIPIDEMIA: Recent Labs Units 11/20/23 1141 06/21/23 0949 LDL CHOLESTEROL (CALCULATED) - [facility] mg/dL 101 105 Does patient have clinical ASCVD? No, is patient LDL less than 70mg/dL? No: Plan to repeat labs HEALTH MAINTENANCE REVIEW: Health Maintenance Due Topic Date Due Zoster Vaccines (1 of 2) Never done Pneumococcal Vaccine: Pediatrics (0 to 5 Years) and At-Risk Patients (6 to 64 Years) (2 of 2 - PCV)12/24/2014 Depression Screening 05/21/2021 DTap/Tdap Vaccines (2 - Td or Tdap) 07/13/2021 Albumin/Creatinine Ratio 12/06/2023 Diabetic Foot Exam 06/21/2024 Influenza Vaccine (FLU shot) (1) 06/30/2024 COVID-19 Vaccine ( - 2023- season) 2024 ASSESSMENT & PLAN: ICD-10-CM 1. Type 2 diabetes mellitus with hemoglobin A1c goal of less than 7.0% (HCC) E11.9 Considerations: Hepatocellular carcinoma Recent admission for hepatic encephalopathy, A1c increased to 8.4% ([facility] 02/26 - 02/28) Dexcom G7 --> Pharmacy Ozempic hesitancy due to constipation risk/concern [facility] ([facility] brand) BG meter ACEi stopped during [facility] hospitalization (05/26/24 - 05/30/24) BG Readings - Blood sugars not available. Patient reports using a meter at home to test once daily.Unsure of the kind. Encouraged to return call to clinic with the brand so new strips/supplies can be sent in. Patient had several hospitalizations since last visit. Per [facility] portal, they were unable to contact patient. Will plan to place updated order. Medications - Reviewed current regimen. Confirmed Metformin was stopped. Taking Lantus daily. Unable to appropriately assess dose due to lack of BG readings. Diet, Exercise, Lifestyle - No significant lifestyle changes since last visit. Encouraged patient to contact clinic with updates regarding testing supplies/readings. Patient is agreeable to SMBG daily with CGM (Dexcom G7) Patient aware to contact clinic if any hypoglycemia before next visit. MEDICATION CHANGES: no change Diabetic Medications: Lantus 10 units daily eGFR 80 as of 07/31/24 HEALTH MAINTENANCE INTERVENTIONS: Deferred d/t time constraints FOLLOW UP: Return to clinic in 6 weeks 09/12/2024 I spent a total of 30-39 minutes (exact time 35 mins) on the date of service in preparation, delivery, and documentation of the care provided to Lloyd Spencer excluding any time spent in the performance of separately billed services. Crystal Lang [facility] Clinical Pharmacist - Handle Machine Operator Medication Therapy Management Clinic 08/01/2024, 9:33 AM documented in this encounter Plan of Treatment Upcoming Encounters Date Type Department Care Team (Latest Contact Info) Description 09/05/2024 1:52 PM EST Hospital Encounter OR [facility], Operating Room, [facility] - 4th Floor [address] [place] [phone] Jayla Armstrong MD [facility] [employer] [place] [address] 09/05/2024 1:52 PM EST - 09/05/2024 2:28 PM EST Surgery OR [facility], Operating Room, [facility] - 4th Floor [address] [place] [address] Jayla Armstrong MD [facility] [place] [address] ESOPHAGOGASTRODUODENOSCOPY (EGD), FLEXIBLE, TRANSORAL, DIAGNOSTIC 09/12/2024 9:30 AM EST Office Visit Pharmacy, [address] [place] [address] [place] [address] 10/18/2024 10:30 AM EST Office Visit Gastroenterology , [facility] 132 [place] [address] Ren Pineda CRNP 132 [place] [address] 10/28/2024 8:00 AM EST Office Visit Family Medicine [address] [place] [phone] Gaby Bey [address] [place] [address] 03/31/2025 4:00 PM EDT Office Visit Nephrology, Girish Mairee 200 [facility] [place] [address] Fernando Reina MD [address] [place] [address] Scheduled Procedures Name Priority Associated Diagnoses Date/Ti [...] 03/16/2021, Additional history exists HbA1c 10/19/2024 04/19/2024, 0 05/2024, 09/18/2023, Additional history exists GFR 07/31/2025 [...] this encounter Medical Devices Implanted Type Area Wheel Borer Device Identifier Shelf Expiration Date Model / Serial / Lot Lipiodol Injection - [id number] Implanted:Qty: 1 on 08/02/2023 at [facility] [employer] [facility] 04/28/2026 [id number] 1 [id number] Syr Pf 2ml Embospheres 100-300 - [id number] Implanted:Qty: 1 on 08/02/2023 at [facility] [employer] [id number] 02/26/2026 S220GH / / [id number] Syr Pf 2ml Embospheres 100-300 - [id number] Implanted:Qty: 1 on 04/11/2024 at [facility] [employer] [id number] 12/27/2026 S220GH / / [id number] Lipiodol Injection - [id number] Implanted:Qty: 1 [facility] [id number] -2 documented as of this encounter Visit Diagnoses Diagnosis Type 2 diabetes mellitus with hemoglobin A1c goal of less than 7.0% (HCC)- Primary Rios's esophagus documented in this encounter Care Teams Expanded Function Dental Assistant Relationship Specialty Start Date End Date Krystian Palomo MD [address] [place] [address] [place] [address] PCP - General Family Medicine 12/22/23 documented as of this encounter
--- OUTSIDE RECORDS SUMMARY | 2024-08-31 03:23 | External Medical Summary | Summary of Care ---
Author Name Unknown Organization [facility] Address [address] [facility] [address] Phone [phone] Care Team Providers Care Artificial Limb Fitter Name Role Phone Krystian Palomo MD Primary Care Provide r Encounter Details Date Type Department Care Team (Late st Contact Info) Description 08/05/2024 Result Scan Unspecified Department Ren Pineda CRNP [address] [place] [address] <No scans attached> Allergies Active Allergy Reactions [...] Oral Tablet (Demadex)Indications:d ecreased from 40 at [facility] d/c 07.06.24 Take 1 Tablet by mouth in the morning. Active Midodrine HCl 2.5 MG Oral Tablet (Proamatine)Indication s:at [facility] d/c 07.06.24 Take 2 Tablets by mouth [...] 09/05/2024 1:52 PM EST Hospital Encounter OR [facility], Operating Room, [facility] - 4th Floor [address] [place] [address] Jayla Armstrong MD [address] [place] [address] 09/05/2024 1:52 PM EST - 09/05/2024 2:28 PM EST Surgery OR [facility], Operating Room, [facility] - 4th Floor [address] [place] [address] Jayla Armstrong MD [address] [place] [address] ESOPHAGOGASTRODUODENOSCOPY (EGD), FLEXIBLE, TRANSORAL, DIAGNOSTIC 09/12/2024 9:30 AM EST Office Visit Pharmacy, [address] [place] [address] [place] [address] 10/18/2024 10:30 AM EST Office Visit Gastroenterology , [facility] [address] [place] [address] Ren Pineda CRNP [address] [place] [address] 10/28/2024 8:00 AM EST Office Visit Family Medicine [address] [place] [address] Sotero Gueroambrose Viola [address] [place] [address] 03/31/2025 4:00 PM EDT Office Visit Nephrology, [facility] [address] [facility] [place] [address] Fernando Reina MD [address] [facility] [place] [address] Scheduled Procedures Name Priority Associated Diagnoses Date/Ti [...] this encounter Medical Devices Implanted Type Area Boatwright Device Identifier Shelf Expiration Date Model / Serial / Lot Lipiodol Injection - [id number] Implanted:Qty: 1 on 08/02/2023 at [facility] [employer] 04/28/2026 [id number] Syr Pf 2ml Embospheres 100-300 - [id number] Implanted:Qty: 1 on 08/02/2023 at [facility] [employer] [id number] 02/26/2026 S220GH / / [id number] Syr Pf 2ml Embospheres 100-300 - [id number] Implanted:Qty: 1 on 04/11/2024 at [facility] [employer] [id number] 12/27/2026 S220GH / / [id number] Lipiodol Injection - [id number] Implanted:Qty: 1 on 04/11/2024 at [facility] [employer] [place] [id number] -2 / / documented as of this encounter Procedures Procedure Name Priority Date/Time Associated Diagnosis Comments OUTSIDE LAB RESULTS 08/05/2024 documented in this encounter Results * OUTSIDE LAB RESULTS (08/05/2024) 08/05/2024 [facility] documented in this encounter Care Teams Artificial Limb Fitter Relationship Specialty Start Date End Date Krystian Palomo MD [address] [place] [address] [place] [address] PCP - General Family Medicine 12/22/23 documented as of this encounter
--- OUTSIDE RECORDS SUMMARY | 2024-08-31 03:23 | External Medical Summary | Summary of Care ---
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 4050 mL 1 4 Active Albumin Human 25 % Intravenous Solution [...] 100 mL 10 4 07/31/20 24 Discontinu ed(Dischar ged) Dexcom G7 Varnisher Apprentice Device Use as directed to monitor blood sugars 1 Each 4 07/31/20 24 Discontinu ed(Dischar ged) Dexcom G7 Sensor Use as directed to monitor blood sugars. Change every 10 days. 3 Each 3 4 07/31/20 24 Discontinu ed(Dischar ged) Pen [place] 32G X 4 MM Use as directed. Use to inject insulin once daily. 100 Each 3 4 07/31/20 24 Discontinu ed(Dischar ged) documented as of this encounter (statuses as of 08/05/2024) Active Problems Problem Noted Date Diagnosed Date [...] as of this encounter (statuses as of 08/05/2024) Resolved Problems Problem Noted Date Diagnosed Date [...] as of this encounter (statuses as of 08/05/2024) Immunizations Name Administration Dates Next Due COVID-19 [...] Sign Reading Time Taken Comments Blood Pressure 87/64 07/31/2024 12:48 PM EDT Pulse 130 07/31/2024 12:48 PM EDT Temperature 36.3 C (97.4 F) 07/31/2024 12:47 PM E DT Respiratory Rate 18 07/31/2024 12:47 PM EDT Oxygen Saturation 94% 07/31/2024 12:47 PM EDT Inhaled Oxygen Concentration - - Weight 110.7 kg (244 lb) 07/31/2024 12:47 PM EDT Height - - Body Mass Index 34.52 06/20/2024 2:23 PM EDT documented in this encounter Progress Notes * Fernando Reina MD - 08/05/2024 9:10 AM EDT Subjective: Lloyd Spencer is a 58 year old male. Chief Complaint Patient presents with Hospital Follow-Up HPI: 58-year-old male who was seen in the hospital for hyponatremia/ascites/hypokalemia/hypomagnesemia. Patient has been admitted multiple times in 2023 for similar issues. On the day of discharge July 22 sodium was 136 which is as good as it gets for him. He has trouble keeping up with the fluid restriction even in the hospital and definitely more so asan outpatient. He was also taking less lactulose than prescribed and did have some encephalopathy but later cleared. Currently he is taking lot of salt tablet which is not the advice he was given. He is taking 4-5 times per day. Is not on urea. He is on torsemide 20 daily. Blood pressure runs low all the time and it is hard tomeasure and this is despite being on midodrine Patient Active Problem List Diagnosis Family history [...] C 1000 MG Oral Tablet daily . Atorvastatin Calcium 20 MG Oral Tablet (Lipitor) Take 1 Tablet by mouth in the morning. 90 Tablet 1 Insulin Glargine Solostar 100 UNIT/ML Subcutaneous Solution Pen-injector (Lantus SoloStar) Inject 10 Units under the skin daily. 15 mL 3 Probiotic & Acidophilus Ex St Oral [...] ONE TABLET AT BEDTIME 60 Tablet 12 Potassium Chloride [facility] 10 MEQ Oral [...] the morning and 1 Capsule before bedtime. Lactulose 10 GM/15ML Oral Solution (Constulose) Take 45 mL by mouth in the morning and 45 mL at noon and 45 mL before bedtime. 4050 mL 1 Mupirocin 2 % External Ointment (Bactroban) Apply topically to affected area 3 times a day. At hospital discharge 22 g 1 No current facility-administered medications for this visit. Review of patient's allergies indicates: Allergen Reactions Aspirin Other reaction(s): bloody nose Salicylates nose bleeds OBJECTIVE: BP 87/64 (BP Site: Right Arm, BP Position: Standing, BP Cuff Size: Large) | Pulse 130 | Temp 36.3 C (97.4 F) | Resp 18 | Wt 110.7 kg (244 lb) | SpO2 94% | BMI 34.52 kg/m | BSA 2.35 m PHYSICAL EXAM: General: alert, no distress, and ill looking Head: Normocephalic, No masses, lesions, tenderness or abnormalities Neck: supple, no JVD Heart: regular rate & rhythm Lungs: normal respiratory rate and rhythm, lungs clear to auscultation Abdomen: ascites Extremities: 1+ edema b/l Neuro Exam: alert & oriented x 3 with fluent speech, no focal motor/sensory deficits ASSESSMENT: Hyponatremia (Primary) Classic case of hypervolemic hyponatremia. Very difficult to manage given persistent low blood pressure and his intermittent nonadherence withfluid restriction. He is taking too many salt tablets and that was not the advice she was given. He needs to be more strict with his fluid restriction down to 1500 mL per day. Normally we do not use salt tablet in patients with hypervolemic hyponatremia but he absolutely belives in this He feels this makes him feel better as soon as he takes it. Given this have compromisedand said no more than 2 g per day. Blood work done on the day of admission actually looks pretty good with a sodium of 135 BUN 11 creatinine 1.1. This is pretty good number and will continue the same. 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 | For: Clinic Visit Fernando Reina MD documented in this encounter Nursing Notes * Edith Serna RN - 07/31/2024 12:50 PM EDT Hospital follow up for hyponatremia. PT is having peritoneal taps. Last tap 3 L was removed. Next tap is next Monday. documented in this encounter Plan of Treatment Upcoming Encounters Date Type Department Care Team (Latest Contact Info) Description 09/05/2024 1:52 PM EST Hospital Encounter OR [facility], Operating Room, [facility] - 4th Floor [address] [place] [address] Jayla Armstrong MD [facility] [place] [address] 09/05/2024 1:52 PM EST - 09/05/2024 2:28 PM EST Surgery OR [facility], Operating Room, [facility] - 4th Floor [address] [place] [address] Jayla Armstrong MD [address] [place] [address] ESOPHAGOGASTRODUODENOSCOPY (EGD), FLEXIBLE, TRANSORAL, DIAGNOSTIC 09/12/2024 9:30 AM EST Office Visit Pharmacy, [address] [place] [address] [place] [address] 10/18/2024 10:30 AM EST Office Visit Gastroenterology , [facility] [address] [facility] [place] [address] Ren Pineda CRNP [address] [place] [address] 10/28/2024 8:00 AM EST Office Visit Family Medicine [address] [place] [address] Gaby Bey CRNP [address] [place] [address] [place] [address] 03/31/2025 4:00 PM EDT Office Visit Nephrology, [facility] [address] [place] [address] [place] [address] Fernando Reina MD [address] [place] [address] [address] Scheduled Procedures Name Priority Associated Diagnoses Date/Ti [...] this encounter Medical Devices Implanted Type Area Accounts Payable Specialist Device Identifier Shelf Expiration Date Model / Serial / Lot Lipiodol Injection - [id number] Implanted:Qty: 1 on 08/02/2023 at [facility] [email or web address] 04/28/2026 [id number] -[id number] Syr Pf 2ml Embospheres 100-300 - [id number] Implanted:Qty: 1 on 08/02/2023 at [facility] [employer] [id number] 02/26/2026 S220GH / / [id number] Syr Pf 2ml Embospheres 100-300 - [id number] Implanted:Qty: 1 on 04/11/2024 at [facility] [employer] [id number] 12/27/2026 S220GH / / [id number] Lipiodol Injection - [id number] Implanted:Qty: 1 on 04/11/2024 at [facility] [employer] [id number] -2 documented as of this encounter Results * (ABNORMAL) URINALYSIS WITH MICROSCOPIC EXAM (08/01/2024 9:21 AM EDT) Color, Urine Yellow Colorless, Light Yellow, Yellow, Dark Yellow 08/01/2024 2:51 PM EDT [facility] Clarity, Urine Slightly Cloudy(A) Clear 08/01/2024 2:51 PM EDT [facility] Glucose, Urine Negative Negative mg/dL 08/01/2024 2:51 PM EDT [facility] Bilirubin, Urine Negative Negative 08/01/2024 2:51 PM EDT [facility] Ketone, Urine Negative Negative mg/dL 08/01/2024 2:51 PM EDT [facility] Specific [place], Urine 1.018 1.003 - 1.030 08/01/2024 2:51 PM EDT [facility] Blood, Urine Negative Negative 08/01/2024 2:51 PM EDT [facility] pH, Urine 5.5 5.0 - 7.5 Units 08/01/2024 2:51 PM EDT [facility] Protein, Urine Trace(A) Negative mg/dL 08/01/2024 2:51 PM EDT [facility] Urobilinogen, Urine Normal Normal mg/dL 08/01/2024 2:51 PM EDT [facility] Nitrite, Urine Negative Negative 08/01/2024 2:51 PM EDT [facility] Esterase, Urine Negative Negative 08/01/2024 2:51 PM EDT [facility] RBC, Urine 0-2 0 - 2 /HPF 08/01/2024 2:51 PM EDT [facility] WBC, Urine 0-2 0 - 2 /HPF 08/01/2024 2:51 PM EDT [facility] Bacteria, Urine 0-25 0 - 25 /HPF 08/01/2024 2:51 PM EDT [facility] Hyaline, Cast, Urine 1-4(A) None /LPF 08/01/2024 2:51 PM EDT LABORATORY C Urine Non-blood Collection / Unknown 08/01/2024 9:21 AM EDT 08/01/2024 9:21 AM EDT Fernando Reina MD LAB URINE ORDERABLES LABORATORY [facility] [address] [place] [address] * MAGNESIUM (07/31/2024 1:22 PM EDT) Magnesium 2.0 1.5 - 2.6 mg/dL 07/31/2024 2:18 PM EDT [facility] 56 Blood Venous blood specimen / Unknown Venipuncture / Unknown 07/31/2024 1:22 PM EDT 07/31/2024 1:22 PM EDT Fernando Reina MD LAB BLOOD ORDERABLES [place] [address] [address] [place], [place] [id number] * (ABNORMAL) RENAL FUNCTION PANEL (07/31/2024 1:22 PM EDT) BUN 11 6 - 20 mg/dL 07/31/2024 2:[address]T [address] CREATININE 1.1 0.6 - 1.2 mg/dL 07/31/2024 2:[address]T [address] EGFR 80 >=60 mL/min 07/31/2024 2:18 PM EDT [address] Comment:eGFR is calculated b ased on the CKD-EPI 2020 equation. SODIUM 135 135 - 146 mmol/L 07/31/2024 2:18 PM EDT [address] POTASSIUM 3.8 3.5 - 5.1 mmol/L 07/31/2024 2:18 PM EDT [address] CHLORIDE 95(L) 98 - 107 mmol/L 07/31/2024 2:[address]T [address] CO2 28 22 - 32 mmol/L 07/31/2024 2:18 [address]T [address] ANION GAP 12 7 - 15 mmol/L 07/31/2024 2:18 PM EDT [facility] 56 GLUCOSE 211(H) 70 - 120 mg/dL 07/31/2024 2:18 PM EDT [address] CALCIUM 9.3 8.4 - 10.2 mg/dL 07/31/2024 2:18 PM EDT [facility] 56 Albumin 3.3(L) 3.8 - 5.0 g/dL 07/31/2024 2:18 PM EDT [facility] Phosphorus 2.7 2.5 - 4.8 mg/dL 07/31/2024 2:18 PM EDT [facility] Blood Venous blood specimen / Unknown Venipuncture / Unknown 07/31/2024 1:22 PM EDT 07/31/2024 1:22 PM EDT Fernando Reina MD LAB BLOOD ORDERABLES [facility] [address] [place] [address] documented in this encounter Visit Diagnoses Diagnosis Hyponatremia- Primary Hyposmolality and/or hyponatremia 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
--- OUTSIDE RECORDS SUMMARY | 2024-08-31 03:23 | External Medical Summary | Summary of Care ---
Author Name Unknown Organization [facility] Address [address] [facility] [place] [address] Phone [phone] Care Team Providers Care Farmworker General Name Role Phone Krystian Palomo MD Primary Care Provide r Encounter Details Date Type Department Care Team (Late st Contact Info) Description 08/21/2024 Orders Only Gastroenterology, [facility] [address] [place] [address] Ren Pineda CRNP [address] [place] [address] Allergies Active Allergy Reactions Criticality Noted Date [...] 09/05/2024 8:16 AM EST Hospital Encounter OR [facility], Operating Room, [facility] - 4th Floor [address] [place] [address] Jayla Armstrong MD [facility] [employer] [place] [address] 09/05/2024 8:16 AM EST - 09/05/2024 8:52 AM EST Surgery OR [facility], Operating Room, [facility] - 4th Floor [address] [place] [address] Jayla Armstrong MD [address] [employer] [place] [address] ESOPHAGOGASTRODUODENOSCOPY (EGD), FLEXIBLE, TRANSORAL, DIAGNOSTIC 09/12/2024 9:30 AM EST Office Visit Pharmacy, [address] [place] [address] [place] [address] 10/18/2024 10:30 AM EST Office Visit Gastroenterology , [facility] [address] [place] [address] Ren Pineda CRNP [address] [place] [address] 10/28/2024 8:00 AM EST Office Visit Family Medicine [address] [address] Gaby Bey CRNP [address] [place] [address] [place] [address] 03/31/2025 4:00 PM EDT Office Visit Nephrology, [facility] 200 [facility] [place] [address] Fernando Reina MD [address] [place] [address] Scheduled Procedures Name Priority Associated Diagnoses Date/Ti [...] 05/2024, 09/18/2023, Additional history exists GFR 07/31/2025 08/20/2024, 11/2023, 07/09/2024, Additional history exists Lipid [...] this encounter Medical Devices Implanted Type Area Bark Fitter Device Identifier Shelf Expiration Date Model / Serial / Lot Lipiodol Injection - [id number] Implanted:Qty: 1 on 08/02/2023 at [facility] [employer] 04/28/2026 [id number] 1 [id number] Syr Pf 2ml Embospheres 100-300 - [id number] Implanted:Qty: 1 on 08/02/2023 at [facility] [employer] [id number] 02/26/2026 S220 / / [id number] Syr Pf 2ml Embospheres 100-300 - [id number] Implanted:Qty: 1 on 04/11/2024 at [facility] [employer] [id number] 12/27/2026 S220GH / / [id number] Lipiodol Injection - [id number] Implanted:Qty: 1 on 04/11/2024 at [facility] [place] [id number] 1 -2 / / documented as of [...] LAB OUTSIDE LAB (SEE SCANNED REPORT) HEMOGLOBIN, [id number] LAB OUTSIDE LAB (SEE SCANNED REPORT) PHOSPHORUS-OUTSID [...] REPORT) documented in this encounter Care Teams Farmworker General Relationship Specialty Start Date End Date Krystian Palomo MD [address] [place] [address] [place] [phone] PCP - General Family Medicine 12/22/23 documented as of this encounter
--- OUTSIDE RECORDS SUMMARY | 2024-08-31 03:23 | External Medical Summary | Summary of Care ---
Author Name Unknown Organization [facility] Address [address] [facility] [place] [address] Phone [phone] Care Team Providers Care Solar Sales Assessor Name Role Phone Krystian Palomo MD Primary Care Provide r Reason for Visit * Reason Onset Date Comments Test Results 08/02/2024 Encounter Details Date Type Department Care Team (Late st Contact Info) Description 08/02/2024 Telephone [facility]phrology[facility] [address] [place] [address] Fernando Reina MD 200 [facility] [place] [address] Test Results Allergies Active Allergy Reactions Criticality Noted Date Comments Aspirin 01/28/2022 Other reaction(s): bloody nose Salicylates 08/08/2001 nose bleeds documented as of this encounter (statuses as of 08/02/2024) Medications Medication Sig Dispensed Refills Start Date [...] Oral Tablet (Demadex)Indications:d ecreased from 40 at [facility] d/c 07.06.24 Take 1 Tablet by mouth in the morning. Active Midodrine HCl 2.5 MG Oral Tablet (Proamatine)Indication s:at [facility] d/c 07.06.24 Take 2 Tablets by [...] as of this encounter (statuses as of 08/02/2024) Active Problems Problem Noted Date Diagnosed Date BPH without obstruction/lower urinary tract symp toms 12/22/2023 BMI 36.0-36.9,adult 10/24/2023 Overview: 266 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 07/05/2023 Hepatic encephalopathy 03/28/2022 Overview: admitted [facility], ammonia 110 Aortic stenosis, moderate 01/21/2022 [...] as of this encounter (statuses as of 08/02/2024) Resolved Problems Problem Noted Date Diagnosed Date [...] as of this encounter (statuses as of 08/02/2024) Immunizations Name Administration Dates Next Due COVID-19 [...] encounter Miscellaneous Notes * Telephone Encounter - Lisbeth Cuadra LPN - 08/02/2024 1:01 PM EDT Pt is aware * Telephone Encounter - Lisbeth Cuadra LPN - 08/02/2024 1:00 PM EDT ----- Message from Fernando Reina MD sent at 08/02/2024 12:38 PM EDT ----- Urine is fine documented in this encounter Plan of Treatment Upcoming Encounters Date Type Department Care Team (Latest Contact Info) Description 09/05/2024 1:52 PM EST Hospital Encounter OR [facility], Operating Room, [facility] - 4th Floor [address] [place] [address] Jayla Armstrong MD [address] [place] [address] [place] [address] 09/05/2024 1:52 PM EST - 09/05/2024 2:28 PM EST Surgery OR [facility], Operating Room, [facility] - 4th Floor [address] [place] [address] Jayla Armstrong MD [address] [place] [address] ESOPHAGOGASTRODUODENOSCOPY (EGD), FLEXIBLE, TRANSORAL, DIAGNOSTIC 09/12/2024 9:30 AM EST Office Visit Pharmacy, [address] [place] [address] [place] [address] 10/18/2024 10:30 AM EST Office Visit Gastroenterology , [facility] [address] [place] [address] Ren Pineda CRNP [address] [place] [address] 10/28/2024 8:00 AM EST Office Visit Family Medicine [address] [place] [address] Gaby Bey [address] [place] [address] 03/31/2025 4:00 PM EDT Office Visit Nephrology, [facility] 200 [facility] [address] [place] [address] Fernando Reina MD [address] [place] [address] Scheduled Procedures Name Priority Associated Diagnoses Date/Ti [...] this encounter Medical Devices Implanted Type Area Topline Beading Machine Tender Device Identifier Shelf Expiration Date Model / Serial / Lot Lipiodol Injection - [id number] Implanted:Qty: 1 on 08/02/2023 at [facility] [employer] 04/28/2026 [id number] 1 -2 [id number] Syr Pf 2ml Embospheres 100-300 - [id number] Implanted:Qty: 1 on 08/02/2023 at [facility] [employer] [id number] 02/26/2026 S220GH / / [id number] Syr Pf 2ml Embospheres 100-300 - [id number] Implanted:Qty: 1 on 04/11/2024 at [facility] [employer] [id number] 12/27/2026 S220GH / / [id number] Lipiodol Injection - [id number] Implanted:Qty: 1 on 04/11/2024 at [facility] [employer] [id number] 1 -2 / documented as of this encounter Care Teams Solar Sales Assessor Relationship Specialty Start Date End Date Krystian Palomo MD [address] [place] [address] [place] [address] PCP - General Family Medicine 12/22/23 documented as of this encounter
--- OUTSIDE RECORDS SUMMARY | 2024-08-31 03:23 | External Medical Summary | Summary of Care ---
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 d/c 07.06.24 Take 1 Tablet by mouth in the morning. Active Midodrine HCl 2.5 MG Oral Tablet (Proamatine)Indication s:at [facility] d/c 07.06.24 Take 2 Tablets by [...] 08/01/2024 9:30 AM EDT Office Visit Pharmacy, [address] [place] [address] [place] [address] 09/05/2024 1:52 PM EST Hospital Encounter OR [facility], Operating Room, [facility] - 4th Floor [address] [place] [phone] Jayla Armstrong MD [address] [place] [address] 09/05/2024 1:52 PM EST - 09/05/2024 2:28 PM EST Surgery OR [facility], Operating Room, [facility] - 4th Floor [address] [place] [phone] Jayla Armstrong MD [address] [place] [address] ESOPHAGOGASTRODUODENOSCOPY (EGD), FLEXIBLE, TRANSORAL, DIAGNOSTIC 10/18/2024 10:30 AM EST Office Visit Gastroenterology , [facility] [address] [place] [address] Ren Pineda CRNP [address] [place] [address] 10/28/2024 8:00 AM EST Office Visit Family [address] [place] [phone] Gaby Bey CRNP [address] [place] [address] [place] [address] 03/31/2025 4:00 PM EDT Office Visit Nephrology, [facility] [address] [facility] [place] [address] Fernando Reina MD [address] [place] [address] Pending Results Name Type Priority Associated Diagnoses Date /Time RENAL FUNCTION PANEL Lab Routine Hyponatremia 07/31/2024 1:22 PM EDT MAGNESIUM Lab Routine Hyponatremia 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) 07/31/2024 1:22 PM EDT ALKALINE PHOSPHATASE Lab Routine Hyponatremia 07/31/2024 1:22 PM EDT PROTEIN Lab Routine Hyponatremia 07/31/2024 1:22 PM EDT AST Lab Routine Hyponatremia 07/31/2024 1:22 PM EDT ALT Lab Routine Hyponatremia 07/31/2024 1:22 PM EDT BILIRUBIN, DIRECT Lab Routine Hyponatremia 07/31/2024 1:22 PM EDT BILIRUBIN, TOTAL Lab Routine Hyponatremia 07/31/2024 1:22 PM EDT Scheduled Procedures Name Priority Associated Diagnoses Date/Ti wi ESOPHAGOGASTRODUODENOSCOPY ( EGD), FLEXIBLE, TRANSORAL, DIAGNOSTIC Rios's [...] encounter Medical Devices Implanted Type Area Clinical Business Manager Device Identifier Shelf Expiration Date Model / Serial / Lot Lipiodol Injection - [id number] Implanted:Qty: 1 on 08/02/2023 at [facility] [employer] 04/28/2026 [id number] 1 -2 [id number] Syr Pf 2ml Embospheres 100-300 - [id number] Implanted:Qty: 1 on 08/02/2023 at [facility] [employer] [id number] 02/26/2026 S220GH / / [id number] Syr Pf 2ml Embospheres 100-300 - [id number] Implanted:Qty: 1 on 04/11/2024 at [facility] [employer] [id number] 12/27/2026 S220GH / / [id number] Lipiodol Injection - [id number] Implanted:Qty: 1 on 04/11/2024 at [facility] [employer] [id number] 1 -2 / documented as of this encounter Visit Diagnoses Diagnosis Hyponatremia Hyposmolality and/or hyponatremia 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
--- OUTSIDE RECORDS SUMMARY | 2024-08-31 03:24 | External Medical Summary ---
Author Name Unknown Address Unknown Organization [id number] [place] [address] Laboratory Report Ordering Provider Test Date Status PANCHITO PERRY 07/31/2024 13:22:55 Final Observation Date Value Abnormality Reference (Units ) Status ALT (Alanine aminotransferase) 07/31/2024 13:22:55 28 10-50 (U/L) Final Performing Location [facility] [address]
--- OUTSIDE RECORDS SUMMARY | 2024-08-31 03:24 | External Medical Summary ---
Author Name Unknown Address Unknown Organization [id number] [place] [address] Laboratory Report Ordering Provider Test Date Status PANCHITO PERRY 07/31/2024 13:22:55 Final Observation Date Value Abnormality Reference (Units ) Status AST (Aspartate aminotransferase) 07/31/2024 13:22:55 52 Above high normal 10-50 (U/L) Final Performing Location [facility] [place] [address]
--- OUTSIDE RECORDS SUMMARY | 2024-08-31 03:24 | External Medical Summary ---
Author Name Unknown Address Unknown Organization [id number] [place] [address] Laboratory Report Ordering Provider Test Date Status PANCHITO PERRY 07/31/2024 13:22:55 Final Observation Date Value Abnormality Reference (Units ) Status Magnesium 07/31/2024 13:22:55 2.0 1.5-2.6 (m g/dL) Final Performing Location [facility] [place] [address]
--- OUTSIDE RECORDS SUMMARY | 2024-08-31 03:24 | External Medical Summary ---
Author Name Unknown Address Unknown Organization [id number] [place] [address] Laboratory Report Ordering Provider Test Date Status PANCHITO PERRY 07/31/2024 13:22:55 Final Observation Date Value Abnormality Reference (Units ) Status Bilirubin, Total 07/31/2024 13:22:55 4.2 Above high no rmal <=1.2 (mg/dL) Final Performing Location [facility] [address]
--- OUTSIDE RECORDS SUMMARY | 2024-08-31 03:24 | External Medical Summary ---
Author Name Unknown Address Unknown Organization [id number] [place] [address] Laboratory Report Ordering Provider Test Date Status PANCHITO PERRY 07/31/2024 13:22:55 Final Observation Date Value Abnormality Reference (Units ) Status Bilirubin, Direct 07/31/2024 13:22:55 1.2 Above high normal 0.0-0.3 (mg/dL) Final Performing Location [facility] [place] [address]
--- OUTSIDE RECORDS SUMMARY | 2024-08-31 03:24 | External Medical Summary ---
Author Name Unknown Address Unknown Organization [id number] [place] [address] Laboratory Report Ordering Provider Test Date Status PANCHITO PERRY 07/31/2024 13:22:55 Final Observation Date Value Abnormality Reference (Units ) Status Alk Phos 07/31/2024 13:22:55 143 Above high normal 35 -130 (U/L) Final Performing Location [facility] [place] [address]
--- OUTSIDE RECORDS SUMMARY | 2024-08-31 03:24 | External Medical Summary ---
Author Name Unknown Address Unknown Organization [facility] [place] [address] Laboratory Report Ordering Provider Test Date Status PANCHITO PERRY 07/31/2024 13:22:55 Final Observation Date Value Abnormality Reference (Units ) Status Protein 07/31/2024 13:22:55 6.6 6.0-8.3 (g /dL) Final Performing Location [facility] [place] [address]
--- OUTSIDE RECORDS SUMMARY | 2024-08-31 03:24 | External Medical Summary ---
Author Name Unknown Address Unknown Organization [facility] [address] Laboratory Report Ordering Provider Test Date Status PANCHITO PERRY 07/31/2024 13:22:55 Final Observation Date Value Abnormality Reference (Units ) Status BUN 07/31/2024 13:22:55 11 6-20 (mg/dL) Final Creatinine 07/31/2024 13:22:55 1.1 0.6-1.2 (mg/dL) Final Glomerular filtration rate/1.73 sq M.predicted [Volume Rate/Area] in Serum, Plasma or Blood by Creatinine-based formula (CKD-EPI) 07/31/2024 13:22:55 80 >=60 (mL/min) Final eGFR is calculated based on the CKD-EPI 2020 equation. Sodium 07/31/2024 13:22:55 135 135-146 (m mol/L) Final Potassium 07/31/2024 13:22:55 3.8 3.5-5.1 (m mol/L) Final Cl 07/31/2024 13:22:55 95 Below low normal 98- 107 (mmol/L) Final CO2 07/31/2024 13:22:55 28 22-32 (mmo l/L) Final Anion gap 07/31/2024 13:22:55 12 7-15 (mmol /L) Final Glucose 07/31/2024 13:22:55 211 Above high normal 70 -120 (mg/dL) Final Calcium 07/31/2024 13:22:55 9.3 8.4-10.2 ( mg/dL) Final Albumin 07/31/2024 13:22:55 3.3 Below low normal 3.8 -5.0 (g/dL) Final Phosphate 07/31/2024 13:22:55 2.7 2.5-4.8 (m g/dL) Final Performing Location [facility] [place] [address]
--- OUTSIDE RECORDS SUMMARY | 2024-08-31 03:24 | External Medical Summary | Summary of Care ---
Author Name Unknown Organization [facility] Address [address] [facility] [place] [address] Phone [phone] Care Team Providers Care Instrumentation Chemist Name Role Phone Krystian Palomo MD Primary Care Provide r Encounter Details Date Type Department Care Team (Late st Contact Info) Description 07/30/2024 Result Scan Unspecified Department Paige Barnes CRNP [address] [place] [address] <No scans attached> Allergies Active Allergy Reactions [...] Patient not taking.Reported on 06/20/2024 Dexcom G7 Scheduling Analyst Device Use as directed to monitor [...] daily. 15 mL 3 04/19/2024 Active Pen Patterson 32G X 4 MM Use as directed. [...] (Demadex)Indications: decreased from 40 at hosp d/c 07.06.24 Take [...] morning and 1 Capsule before bedtime. Active documented as of this encounter (statuses as of 07/31/2024) Active Problems Problem Noted Date Diagnosed Date BPH without obstruction/lower urinary tract symp toms 12/22/2023 BMI 36.0-36.9,adult 10/24/2023 Overview: 266 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 07/05/2023 Hepatic encephalopathy 03/28/2022 Overview: admitted [facility], ammonia 110 Aortic stenosis, moderate 01/21/2022 Thrombocytopenia [...] 1:00 PM EDT Office Visit Nephrology, [place] [address] [place] [address] Fernando Reina MD [facility] [place] [address] 08/01/2024 9:30 AM EDT Office Visit Pharmacy, [address] [place] [address] [place] [address] 09/05/2024 1:52 PM EST Hospital Encounter OR [facility], Operating Room, [facility] - 4th Floor [address] [place] [phone] Jayla Armstrong MD [address] [employer] [facility] [place] [address] 09/05/2024 1:52 PM EST - 09/05/2024 2:28 PM EST Surgery OR [facility], Operating Room, [facility] - 4th Floor [address] [place] [phone] Jayla Armstrong MD [address] [employer] [facility] [place] [address] ESOPHAGOGASTRODUODENOSCOPY (EGD), FLEXIBLE, TRANSORAL, DIAGNOSTIC 10/18/2024 10:30 AM EST Office Visit Gastroenterology , [facility] 132 [facility] [place] [address] Ren Pineda CRNP [address] [place] [address] 10/28/2024 8:00 AM EST Office Visit Family Medicine [address] [place] [phone] Gaby Bey CRNP [address] [place] [address] [place] [address] Scheduled Procedures Name Priority Associated Diagnoses Date/Ti [...] this encounter Medical Devices Implanted Type Area Financial Specialist Device Identifier Shelf Expiration Date Model / Serial / Lot Lipiodol Injection - [id number] Implanted:Qty: 1 on 08/02/2023 at [facility] [employer] 04/28/2026 [id number] Syr Pf 2ml Embospheres 100-300 - [id number] Implanted:Qty: 1 on 08/02/2023 at [facility] [employer] [id number] 02/26/2026 S220GH / / [id number] Syr Pf 2ml Embospheres 100-300 - [id number] Implanted:Qty: 1 on 04/11/2024 at [facility] [employer] [id number] 12/27/2026 S220GH / / [id number] Lipiodol Injection - [id number] Implanted:Qty: 1 on 04/11/2024 at [facility] [employer] [id number] -[id number] documented as of this encounter Procedures Procedure Name Priority Date/Time Associated Diagnosis Comments OUTSIDE LAB RESULTS 07/30/2024 documented in this encounter Results * OUTSIDE LAB RESULTS (07/30/2024) 07/30/2024 [facility] documented in this encounter Care Teams Instrumentation Chemist Relationship Specialty Start Date End Date Krystian Palomo MD [address] [place] [address] [place] [address] PCP - General Family Medicine 12/22/23 documented as of this encounter
[2024-08-31 04:15] LABS: Thyroid Stimulating Hormone 0.942 uIu/ml (0.300-4.500)
[2024-08-31] MEDS: PANTOprazole 40 MG TAB PO SCH (06:29)
--- NOTE | 2024-08-31 07:54 | Hospitalist Progress Note ---
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 Spencer is a 59 year-old male with past med history significant for type 2 diabetes, hyperlipidemia, chronic idiopathic gout, hepatic encephalopathy, hypertension, moderate aortic stenosis,GONZALES cirrhosis, heptocellular carcinoma s/p embolization, diverticulosis of colon, thrombocytopenia who is admitted for management of orthopnea iso recurrent pleural effusion thought to be 2/2 hepatic hydrothorax. Patient admitted 07/18-07/22 for decompensated cirrhosis. Patient underwent paracentesis routinely near weekly since discharge. Last paracentesis was 08/20 with 6L removed. On this admission, patient noted to have moderate/severe left pleural effusion and a soft tissue mass causing mild narrowing of nasopharynx. #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, decompensated #Ascites #Hepatocellular Carcinoma s/p embolization of RHL on 08/02/2023 - History of decompensation: yes - MELD-Na:pending - Last EGD 07/04/2023: no EV - Last colonoscopy: 12/2023 normal, internal hemorrhoids, repeat 2028 2/2 family hx -Coagulopathy: Platelets 75, baseline routine 60-70, largely variable INR Ordered - Portal hypertension: hx of gastropathy, splenomegaly - PSE: continue w/ lactulose TID and Rifaximin 550 BID - Ascites: home torsemide 20mg bid, s/p IV lasix - SBP: No evidence of SBP - EV: No evidence of GIB presently, close monitoring; continue pantoprazole PO - HRS: Cr at baseline (0.8-1.1), no signs of HRS - Daily CMP + INR to calculate MELD - Lasix/albumin daily in interim for diuresis - Plan for paracentesis on Monday #Multiple electrolyte abnormalities replace prn start daily mag supplement #Soft tissue mass in adenoid #Nodule of thyroid noted on ct soft tissue neck, mild narrowing of nasopharynx No active concerns at this time Will need OP follow up on imaging (no active obstructive issue, URI like symptoms) Will need OP thyroid U/S # Chronic Macrocytic Anemia # Chronic Thrombocytopenia -B12 historically notably elevated iso cirrhosis, folate 17 in 07/2023 Platelets historically 60-70s, repeat CBC Trend CBC #gout -Hold allopurinol, resume when able #hyperglycemia #Diabetes Mellitus TypeII no sign of DKA Hold home metformin, pioglitazone, glimepiride Insulin sliding scale POC q6 hours while npo, hypoglycemia protocol We will follow blood sugars and HbA1c levels #Orthostatic hypotension #History of Hypertension #Moderate aortic stenosis Monitor for volume overload Diuersis as tolerated Midodrine increased to 7.5mg TIDM #Hyponatremia iso hyperglycemia and cirrhosis stable at this time, glycemic control and diuersis as able #Hx of LUTs/retention monitor for retention DVT scds 2/2 coagulopathy Plan for para on Monday Admission and Anticipated Discharge Date Admission Date: August 30, 2024 Subjective NAEO Reports subjective relief with diuretic overnight, can lay on back and either side Reports umbilical hernia is painful with cough--requesting binder if possible Denies nausea, vomiting or other symptoms Physical Exam Constitutional: WD/WN, vitals as above Respiratory: diminished left basilar breath sounds Cardiovascular: RAHAT+ Gastrointestinal (Abdomen): protuberant abdomen reducible hernia, fluid shift Results & Data Results & Data Vital Signs (Past 12 Hours) Vital Signs Temp Pulse Pulse Pulse Resp BP BP 08/31/24 04:18 36.6 C 96 H 20 98/61 L 08/31/24 03:03 08/31/24 02:40 36.6 C 102 H 20 101/62 08/31/24 02:00 101 H 08/31/24 00:44 36.6 C 08/31/24 00:42 95 H 16 95/55 L 08/31/24 00:12 103 H 20 97/62 L 08/31/24 00:00 97 H 17 97/62 L 08/30/24 23:30 99 H 19 108/61 08/30/24 23:09 103 H 14 109/64 08/30/24 23:07 104 H 08/30/24 22:55 109/64 08/30/24 22:54 103 H 22 08/30/24 22:33 99 H 14 08/30/24 22:30 82/46 L 08/30/24 22:30 82/46 L 08/30/24 22:30 82/46 L 08/30/24 22:27 105 H 17 08/30/24 22:03 110 H 18 08/30/24 22:00 96/54 L 08/30/24 22:00 96/54 L 08/30/24 22:00 96/54 L 08/30/24 22:00 96/54 L 08/30/24 21:56 99 H 21 98/56 L 08/30/24 21:54 104 H 21 08/30/24 21:30 101 H 17 08/30/24 21:30 96/58 L 08/30/24 21:30 96/58 L 08/30/24 21:00 105/66 08/30/24 21:00 105/66 08/30/24 21:00 98 H 18 08/30/24 20:30 100 H 24 08/30/24 20:30 106/64 08/30/24 20:30 106/64 08/30/24 20:30 106/64 08/30/24 20:27 102 H 22 106/64 08/30/24 20:21 104 H 21 08/30/24 20:00 103/66 08/30/24 20:00 103/66 08/30/24 19:57 98 H 16 Pulse Ox O2 Del Method O2 Flow Rate 08/31/24 04:18 96 Room Air 08/31/24 03:03 Room Air 08/31/24 02:40 96 Room Air 08/31/24 02:00 08/31/24 00:44 Nasal Cannula 2 08/31/24 00:42 97 Nasal Cannula 2 08/31/24 00:12 95 Nasal Cannula 2 08/31/24 00:00 96 Nasal Cannula 2 08/30/24 23:30 95 Nasal Cannula 2 08/30/24 23:09 97 Nasal Cannula 2 08/30/24 23:07 08/30/24 22:55 08/30/24 22:54 08/30/24 22:33 97 Nasal Cannula 2 08/30/24 22:30 08/30/24 22:30 08/30/24 22:30 08/30/24 22:27 98 Nasal Cannula 2 08/30/24 22:03 99 Nasal Cannula 2 08/30/24 22:00 08/30/24 22:00 08/30/24 22:00 08/30/24 22:00 08/30/24 21:56 96 Room Air 08/30/24 21:54 99 08/30/24 21:30 97 08/30/24 21:30 08/30/24 21:30 08/30/24 21:00 08/30/24 21:00 08/30/24 21:00 95 08/30/24 20:30 100 08/30/24 20:30 08/30/24 20:30 08/30/24 20:30 08/30/24 20:27 100 Room Air 08/30/24 20:21 97 08/30/24 20:00 08/30/24 20:00 08/30/24 19:57 97 Laboratory Results Short CBC 08/30/24 08/31/24 Range/Units 18:48 07:50 WBC 5.07 4.58 L (4.8-10.8) K/ul Hgb 9.8 L 8.9 L (14.0-18.0) g/dl Hct 28.6 L 25.7 L (42.0-52.0) % Plt Count 75 L 71 L (130-400) K/uL BMP 08/30/24 08/31/24 18:48 07:50 Sodium 132 L 133 L Potassium 3.1 L 3.3 L Chloride 96 L 99 Carbon Dioxide 27 28 BUN 9 8 Creatinine 1.03 0.92 Glucose 194 H 111 H Calcium 8.0 L 8.3 L Liver Function 08/30/24 08/31/24 Range/Units 18:48 07:50 Total Bilirubin 4.1 H 5.9 H (0.2-1.0) mg/dl AST 40 H 39 (13-39) U/L ALT 18 15 (7-52) U/L Alkaline Phosphatase 104 90 (34-104) U/L Albumin 2.5 L 3.0 L (3.4-5.0) gm/dl Medications Administered Home Medications Medication Instructions Recorded Confirmed Last Taken allopurinol 300 mg tablet 300 mg PO QAM 06/03/19 08/30/24 08/30/24 metformin 500 mg tablet 500 mg PO BIDM 06/03/19 08/30/24 08/30/24 ascorbic acid (vitamin C) 1,000 mg 1 g PO QAM 08/27/23 08/30/24 08/30/24 tablet (Vitamin C) rifaximin 550 mg tablet (Xifaxan) 550 mg PO BID 01/02/24 08/30/24 08/30/24 omeprazole 20 mg capsule,delayed 20 mg PO DAILYBB 0408/30/24 08/30/24 release midodrine 2.5 mg tablet 5 mg (2 x 2.5 mg) PO TIDM #60 tabs 07/06/24 08/30/24 08/30/24 lactulose 20 gram/30 mL oral 30 g PO TID Cirrhosis 07/18/24 08/30/24 08/30/24 solution potassium chloride 10 mEq 20 meq PO BID 08/30/24 08/30/24 08/30/24 tablet,extended release(part/cryst) sodium chloride 1,000 mg soluble 1,000 mg DAILY 08/30/24 08/30/24 08/30/24 tablet torsemide 20 mg tablet 20 mg PO BID 08/30/24 08/30/24 08/30/24 Active Medications Generic Name Dose Route Start Last Admin Trade Name Freq PRN Reason Stop Dose Admin Allopurinol 300 mg 08/31/24 09:00 08/31/24 08:05 Allopurinol 300 Mg Tab PO 09/30/24 08:59 300 mg QAM MOODY Administration Amoxicillin/Clavulanate Potassium 1 tab 08/31/24 08:00 08/31/24 08:05 Amoxicillin/Clavulanate 875 Mg Tab PO 09/10/24 07:59 1 tab BIDM MOODY Administration Protocol Insulin Aspart 0 units 08/31/24 01:52 08/31/24 09:13 Insulin Aspart Per Unit Charge SC 09/30/24 01:51 2 units ACHS MOODY Administration Insulin Glargine 5 units 08/31/24 01:52 08/31/24 09:12 Lantus Per Unit Charge SQ 09/30/24 01:51 5 units BID MOODY Administration Lactulose 30 gm 08/31/24 09:00 08/31/24 08:06 Lactulose Syrup 30 Gm/45 Ml Udp PO 09/30/24 08:59 30 gm TID MOODY Administration Midodrine 7.5 mg 08/31/24 08:00 08/31/24 08:06 Midodrine Hcl 2.5 Mg Tab PO 09/30/24 07:59 7.5 mg TIDM MOODY Administration Pantoprazole Sodium 40 mg 08/31/24 06:30 08/31/24 06:29 Pantoprazole 40 Mg Tab PO 09/30/24 06:29 40 mg DAILYBB MOODY Administration Rifaximin 550 mg 08/30/24 23:30 08/31/24 08:06 Rifaximin 550 Mg Tablet PO 09/29/24 23:29 550 mg BID MOODY Administration
[2024-08-31] MEDS ORDERED: MIDODRINE HCL 2.5 MG TAB PO SCH (08:00)
[2024-08-31] MEDS: AMOXICILLIN/CLAVULANATE 875 MG TAB PO SCH (08:05)
[2024-08-31] MEDS: allopurinoL 300 MG TAB PO SCH (08:05)
[2024-08-31] MEDS: MIDODRINE HCL 2.5 MG TAB PO SCH (08:06)
[2024-08-31] MEDS: LACTULOSE SYRUP 30 GM/45 ML UDP PO SCH (08:06)
[2024-08-31 08:51] LABS: Basophils # (auto) 0.06 K/uL (0.00-0.20); Basophils % (auto) 1.3 %; Eosinophils # (auto) 0.26 K/uL (0.00-0.50); Eosinophils % (auto) 5.7 %; Hematocrit (blood only) 25.7 % (42.0-52.0); Hemoglobin 8.9 g/dl (14.0-18.0); Immature Granulocytes # (auto) 0.02 K/uL (0.01-0.20); Immature Granulocytes % (auto) 0.4 %; Lymphocytes # (auto) 0.46 K/uL (1.20-3.40); Mean Corpuscular Hgb Conc 34.6 g/dL (32.0-36.0); Mean Platelet Volume 10.7 fL (9.4-12.4); Monocytes # (auto) 0.68 K/uL (0.11-0.59); Monocytes % (auto) 14.8 %; Neutrophils % (auto) 67.8 %; Platelet Count 71 K/uL (130-400); RDW Standard Deviation 60.7 fL (36.4-46.3); Red Blood Count 2.47 M/uL (4.70-6.10); White Blood Count 4.58 K/ul (4.8-10.8)
--- NOTE | 2024-08-31 08:52 | Gastrointestinal Consultation ---
Date of Consultation August 31, 2024 Assessment & Plan (1) Ascites: Secondary to MASH cirrhosis and HCC. Situation is somewhat tenuous as his BP is soft and not sure he can tolerated much in the way of aggressive diuretics. Paracentesis is advisable with albumin infusion and this may be a reason for recurrent admissions. He says he is being considered for a liver transplant but has some cardiac roadblocks to overcome. Not sure if TIPS would even be possible after his chemoembolization. For now I would recommend symptomatic relief with large volume paracentesis with albumin infusion and follow up with his OP GI who are following him for his HCC and further treatment. IP GI Service will sign off. History of Present Illness Reason for Consultation: Recurrent Ascites Requesting Physician: Dr. Rodriguez Attending Physician: Autumn Donahue MD History of Present Illness 59 yo WM with history of HCC s/p what sounds like chemoembolization with "just a little" cancer remaining, who has had recurrent ascites from his cirrhosis and even hydrothorax. He gets periodic paracenteses. He states he again became SOB and developed a cough and felt like he had to have more fluid taken off. Allergies Allergy/AdvReac Type Severity Reaction Status Date / Time aspirin AdvReac Intermediate NOSE Verified 06/29/24 20:54 BLEEDS--IF TAKES REGULARLY salicylates AdvReac Intermediate NOSE BLEEDS Verified 06/29/24 20:54 Home Medications Medication Instructions Recorded Confirmed Type allopurinol 300 mg tablet 300 mg PO QAM 06/03/19 08/30/24 History metformin 500 mg tablet 500 mg PO BIDM 06/03/19 08/30/24 History ascorbic acid (vitamin C) 1,000 mg 1 g PO QAM 08/27/23 08/30/24 History tablet (Vitamin C) rifaximin 550 mg tablet (Xifaxan) 550 mg PO BID 01/02/24 08/30/24 History omeprazole 20 mg capsule,delayed 20 mg PO DAILYBB 02/27/24 08/30/24 History release midodrine 2.5 mg tablet 5 mg (2 x 2.5 mg) PO TIDM #60 tabs 07/06/24 08/30/24 Rx lactulose 20 gram/30 mL oral 30 g PO TID Cirrhosis 07/18/24 08/30/24 History solution potassium chloride 10 mEq 20 meq PO BID 08/30/24 08/30/24 History tablet,extended release(part/cryst) sodium chloride 1,000 mg soluble 1,000 mg DAILY 08/30/24 08/30/24 History tablet torsemide 20 mg tablet 20 mg PO BID 08/30/24 08/30/24 History Patient History Medical History Ureterolithiasis Hepatocellular carcinoma s/p IR embolization Pulmonary hypertension Diabetes mellitus NAFLD (nonalcoholic fatty liver disease) Chronic hyponatremia Dizziness r/t the cirrhosis - using a cane at this time. "if i get up to fast". S/P abdominal paracentesis Fracture of rib of right side 2013 Anaplasmosis 2019 Acute hepatic encephalopathy Cardiac murmur HX Hypertension Right rib fracture hx ~. Surgical History History of esophagogastroduodenoscopy (EGD) History of colonoscopy Family History Mother History of colonoscopy Brother Family history of diabetes mellitus Brother Family history of diabetes mellitus Grandmother (Paternal) Family history of diabetes mellitus Other No family history of adverse response to anesthesia Social History Smoking Status: Never smoker Tobacco Type: Smokeless Tobacco (Dip or Chew) Second Hand Exposure: No; Do You Dip or Chew Tobacco: Yes; Hx Alcohol Use: No Hx Substance Use: No Preferred Language: Serbian Communication Ability: Effective Foreign Language Professor Required: No Beliefs That Will Affect Care: None marital status: Single Current Living Situation: Family Current Living Situation Comment: With brother and mother Other Information That Helps Us Care for You: No Feels Safe at Home: Yes Safety Concerns: Feels Safe At This Time Assistive Devices: Cane, Glasses, Hospital Bed and Walker Review of Systems Review of Systems: Negative except for HPI and below. Gastrointestinal: Really denies any significant abdominal pain. Physical Exam Physical Exam: WD WN WM NAD Constitutional: Afebrile BP soft; P nl; RR Nl Eyes: Sclera mildly icteric Conjunctiva mildly pale Respiratory: Clear with fair to good aeration Cardiovascular: Reg III/ RAHAT Gastrointestinal (Abdomen): Decreased BS, soft, nontender + fluid wave Musculoskeletal: Extremities without significant edema Neurologic: A/O Results & Data Vital Signs (Past 12 Hours) Vital Signs Temp Pulse Pulse Pulse Resp BP BP 08/31/24 08:37 08/31/24 07:55 36.6 C 89 18 97/61 L 08/31/24 04:18 36.6 C 96 H 20 98/61 L 08/31/24 03:03 08/31/24 02:40 36.6 C 102 H 20 101/62 08/31/24 02:00 101 H 08/31/24 00:44 36.6 C 08/31/24 00:42 95 H 16 95/55 L 08/31/24 00:12 103 H 20 97/62 L 08/31/24 00:00 97 H 17 97/62 L 08/30/24 23:30 99 H 19 108/61 08/30/24 23:09 103 H 14 109/64 08/30/24 23:07 104 H 08/30/24 22:55 109/64 08/30/24 22:54 103 H 22 08/30/24 22:33 99 H 14 08/30/24 22:30 82/46 L 08/30/24 22:30 82/46 L 08/30/24 22:30 82/46 L 08/30/24 22:27 105 H 17 08/30/24 22:03 110 H 18 08/30/24 22:00 96/54 L 08/30/24 22:00 96/54 L 08/30/24 22:00 96/54 L 08/30/24 22:00 96/54 L 08/30/24 21:56 99 H 21 98/56 L 08/30/24 21:54 104 H 21 08/30/24 21:30 101 H 17 08/30/24 21:30 96/58 L 08/30/24 21:30 96/58 L 08/30/24 21:00 105/66 08/30/24 21:00 105/66 08/30/24 21:00 98 H 18 Pulse Ox O2 Del Method O2 Flow Rate 08/31/24 08:37 Room Air 08/31/24 07:55 96 Room Air 08/31/24 04:18 96 Room Air 08/31/24 03:03 Room Air 08/31/24 02:40 96 Room Air 08/31/24 02:00 08/31/24 00:44 Nasal Cannula 2 08/31/24 00:42 97 Nasal Cannula 2 08/31/24 00:12 95 Nasal Cannula 2 08/31/24 00:00 96 Nasal Cannula 2 08/30/24 23:30 95 Nasal Cannula 2 08/30/24 23:09 97 Nasal Cannula 2 08/30/24 23:07 08/30/24 22:55 08/30/24 22:54 08/30/24 22:33 97 Nasal Cannula 2 08/30/24 22:30 08/30/24 22:30 08/30/24 22:30 08/30/24 22:27 98 Nasal Cannula 2 08/30/24 22:03 99 Nasal Cannula 2 08/30/24 22:00 08/30/24 22:00 08/30/24 22:00 08/30/24 22:00 08/30/24 21:56 96 Room Air 08/30/24 21:54 99 08/30/24 21:30 97 08/30/24 21:30 08/30/24 21:30 08/30/24 21:00 08/30/24 21:00 08/30/24 21:00 95 PG Care Time/CCT Total # of Minutes Spent Total Time Spent with Patient: Total time spent is greater than 50% in coordination of care (as documented) at patient's floor/unit and/or counseling patient: Coding Level of Care Code 98160 IN/OBS CONSULT LVL 4,60M Diagnoses Ascites R18.8
[2024-08-31 09:01] LABS: BUN Creatinine Ratio 8.7 (10-20); Bilirubin,Total 5.9 mg/dl (0.2-1.0); Calcium 8.3 mg/dl (8.6-10.3); Creatinine Clr Calc Pharmacy 107.5 ml/min; Magnesium 1.9 mg/dl (1.7-2.4); Potassium 3.3 mmol/L (3.5-5.1)
[2024-08-31 09:15] LABS: INR 1.5 (0.9-1.1); Prothrombin Time 15.7 Seconds (9.0-12.0)
[2024-08-31] MEDS: ACETAMINOPHEN 500 MG TAB PO PRN (11:20)
[2024-08-31] MEDS: FUROSEMIDE 40 MG/4 ML VIAL IV SCH (11:23)
--- NOTE | 2024-08-31 11:27 | XRay Report ---
XR chest 1V portable HISTORY: 59 years-old Male ffup, pleural effusion acute shortness of breath COMPARISON: CT chest August 30, 2024 TECHNIQUE: AP view the chest FINDINGS: Cardiac silhouette is normal in size. No pneumothorax. Moderate to large layering left pleural effusi on redemonstrated with left basilar consolidation. Right lung is clear. Bones appear grossly intact. IMPRESSION: Unchanged left pleural effusion with left basilar consolidation. ACT 112: Negative or not required by law. The above report was generated using voice recognition software. It may contain grammatical, syntax o r spelling errors. Electronically signed by: Alfredo Thornton M.D. 08/31/2024 11:26 AM
[2024-08-31] MEDS: ALBUMIN 25% 12.5 GM/50 ML VIAL IV ONE (11:40)
[2024-08-31] MEDS: MAGNESIUM CHLORIDE W/CALCIUM 64MG DELAYED REL TAB PO SCH (12:49)
[2024-08-31] MEDS: POTASSIUM CHLORIDE CRTAB 20 MEQ TABCR PO SCH (13:16)
--- NOTE | 2024-08-31 19:21 | Electrocardiogram Report ---
Test Reason : Blood Pressure : */* mmHG Vent. Rate : 99 BPM Atrial Rate : 99 BPM P-R Int : 138 ms QRS Dur : 84 ms QT Int : 392 ms P-R-T Axes : 47 50 59 degrees QTcB Int : 503 ms Normal sinus rhythm Cannot rule out Inferior infarct , age undetermined Prolonged QT Abnormal ECG When compared with ECG of 20-Jul-2024 23:41, No significant change was found Confirmed by Rosa Garza (Harley) on 08/31/2024 7:20:47 PM Referred By: Confirmed By: Rosa Garza
[2024-09-01 06:47] LABS: Hematocrit (blood only) 27.1 % (42.0-52.0); Hemoglobin 9.5 g/dl (14.0-18.0); Mean Corpuscular Hemoglobin 36.1 pg (25.0-34.0); Mean Corpuscular Hgb Conc 35.1 g/dL (32.0-36.0); Mean Platelet Volume 10.6 fL (9.4-12.4); Platelet Count 69 K/uL (130-400); RDW Coefficient of Variation 16.1 % (11.5-14.5); Red Blood Count 2.63 M/uL (4.70-6.10); White Blood Count 3.94 K/ul (4.8-10.8)
[2024-09-01 07:09] LABS: Albumin Globulin Ratio 0.9 (0.9-2); Albumin Level 2.8 gm/dl (3.4-5.0); BUN Creatinine Ratio 9.1 (10-20); Bilirubin,Total 4.7 mg/dl (0.2-1.0); Calcium 8.4 mg/dl (8.6-10.3); Creatinine Clr Calc Pharmacy 112.8 ml/min; Magnesium 1.9 mg/dl (1.7-2.4); Potassium 3.4 mmol/L (3.5-5.1); Total Protein 5.8 gm/dl (6.0-8.3)
[2024-09-01 07:19] LABS: INR 1.5 (0.9-1.1); Prothrombin Time 16.1 Seconds (9.0-12.0)
[2024-09-01] MEDS: POT PHOSPHATE MONOBASIC W/ SOD TAB PO SCH (09:51)
[2024-09-01] MEDS: FUROSEMIDE 40 MG/4 ML VIAL IV SCH (09:53)
[2024-09-01] MEDS: ALBUMIN 25% 12.5 GM/50 ML VIAL IV ONE (09:55)
--- NOTE | 2024-09-01 10:46 | XRay Report ---
XR chest 1V portable HISTORY: 59 years-old Male pleural effusion acute shortness of breath COMPARISON: 08/31/2024 TECHNIQUE: AP view the chest FINDINGS: Cardiac silhouette is enlarged. No pneumothorax. Mildly decreased size of the layering left pleural e ffusion redemonstrated with left basilar consolidation. Right lung is clear. Bones appear grossly int act. IMPRESSION: Mildly decreased size of the left pleural effusion with persistent left basilar opacities. ACT 112: Negative or not required by law. The above report was generated using voice recognition software. It may contain grammatical, syntax o r spelling errors. Electronically signed by: Alfredo Thornton M.D. 09/01/2024 10:45 AM
--- NOTE | 2024-09-01 11:05 | Hospitalist Progress Note ---
Date of Service September 01, 2024 Assessment & Plan (1) Pleural effusion: (2) 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: (3) Orthostatic hypotension: Plan Mr. Spencer is a 59 year-old male with past med history significant for type 2 diabetes, hyperlipidemia, chronic idiopathic gout, hepatic encephalopathy, hypertension, moderate aortic stenosis,GONZALES cirrhosis, heptocellular carcinoma s/p embolization, diverticulosis of colon, thrombocytopenia who is admitted for management of orthopnea iso recurrent pleural effusion thought to be 2/2 hepatic hydrothorax. Patient admitted 07/18-07/22 for decompensated cirrhosis. Patient underwent paracentesis routinely near weekly since discharge. Last paracentesis was 08/20 with 6L removed. On this admission, patient noted to have moderate/severe left pleural effusion and a soft tissue mass causing mild narrowing of nasopharynx. Patient is responding to albumin/lasix with repeat CXR showing mild improvement in pleural effusion Plan for paracentesis in am Soft tissue mass not causing any particular symptoms/airway obstruction. Will plan for OP follow up. #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, decompensated #Ascites #Hepatocellular Carcinoma s/p embolization of RHL on 08/02/2023 - History of decompensation: yes - MELD-Na:17 - Last EGD 07/04/2023: no EV - Last colonoscopy: 12/2023 normal, internal hemorrhoids, repeat 12/01 family hx -Coagulopathy: baseline routine 60-70, largely variable, INR 1.5 - Portal hypertension: hx of gastropathy, splenomegaly - PSE: continue w/ lactulose TID and Rifaximin 550 BID - Ascites: home torsemide 20mg bid, held - SBP: No evidence of SBP - EV: No evidence of GIB presently, close monitoring; continue pantoprazole PO - HRS: Cr at baseline (0.8-1.1), no signs of HRS - Daily CMP + INR to calculate MELD - Lasix/albumin daily in interim for diuresis, noted improvement on CXR and symptom improvement - Plan for paracentesis on Monday #Multiple electrolyte abnormalities replace prn continue daily mag supplement #Soft tissue mass in adenoid #Nodule of thyroid noted on ct soft tissue neck, mild narrowing of nasopharynx No active concerns at this time Will need OP follow up on imaging (no active obstructive issue, URI like symptoms) Will need OP thyroid U/S # Chronic Macrocytic Anemia # Chronic Thrombocytopenia -B12 historically notably elevated iso cirrhosis, folate 17 in 07/2023 Platelets historically 60-70s, repeat CBC Trend CBC #gout -Hold allopurinol, resume when able #hyperglycemia #Diabetes Mellitus TypeII no sign of DKA Hold home metformin, pioglitazone, glimepiride Insulin sliding scale POC q6 hours while npo, hypoglycemia protocol We will follow blood sugars and HbA1c levels #Orthostatic hypotension #History of Hypertension #Moderate aortic stenosis Monitor for volume overload Diuersis as tolerated Midodrine increased to 7.5mg TIDM #Hyponatremia iso hyperglycemia and cirrhosis stable at this time, glycemic control and diuersis as able #Hx of LUTs/retention monitor for retention DVT scds 2/2 coagulopathy Plan for para on Monday Admission and Anticipated Discharge Date Admission Date: August 30, 2024 Subjective NAEO Patient reports feeling "much better" Denies any SOB/orthopnea Moving around and passings stool Agrees to para tomorrow Physical Exam Constitutional: WD/WN, vitals as above Respiratory: normal respiratory effort, lungs clear to auscultation Cardiovascular: RRR, no murmur, no edema Gastrointestinal (Abdomen): protuberant but soft Results & Data Results & Data Vital Signs (Past 12 Hours) Vital Signs Temp Pulse Resp BP Pulse Ox O2 Del Method 09/01/24 08:00 36.6 C 86 16 86/49 L 94 Room Air 09/01/24 03:56 36.7 C 76 20 104/63 96 Room Air 09/01/24 00:15 36.7 C 81 20 110/73 97 Room Air Laboratory Results Short CBC 09/01/24 Range/Units 06:20 WBC 3.94 L (4.8-10.8) K/ul Hgb 9.5 L (14.0-18.0) g/dl Hct 27.1 L (42.0-52.0) % Plt Count 69 L (130-400) K/uL BMP 09/01/24 06:20 Sodium 137 Potassium 3.4 L Chloride 104 Carbon Dioxide 27 BUN 8 Creatinine 0.88 Glucose 101 H Calcium 8.4 L Liver Function 09/01/24 Range/Units 06:20 Total Bilirubin 4.7 H (0.2-1.0) mg/dl AST 37 (13-39) U/L ALT 14 (7-52) U/L Alkaline Phosphatase 89 (34-104) U/L Albumin 2.8 L (3.4-5.0) gm/dl Medications Administered Home Medications Medication Instructions Recorded Confirmed Last Taken allopurinol 300 mg tablet 300 mg PO QAM 06/03/19 08/30/24 08/30/24 metformin 500 mg tablet 500 mg PO BIDM 06/03/19 08/30/24 08/30/24 ascorbic acid (vitamin C) 1,000 mg 1 g PO QAM 08/27/23 08/30/24 08/30/24 tablet (Vitamin C) rifaximin 550 mg tablet (Xifaxan) 550 mg PO BID 01/02/24 08/30/24 08/30/24 omeprazole 20 mg capsule,delayed 20 mg PO DAILYBB 02/27/24 08/30/24 08/30/24 release midodrine 2.5 mg tablet 5 mg (2 x 2.5 mg) PO TIDM #60 tabs 07/06/24 08/30/24 08/30/24 lactulose 20 gram/30 mL oral 30 g PO TID Cirrhosis 07/18/24 08/30/24 08/30/24 solution potassium chloride 10 mEq 20 meq PO BID 08/30/24 08/30/24 08/30/24 tablet,extended release(part/cryst) sodium chloride 1,000 mg soluble 1,000 mg DAILY 08/30/24 08/30/24 08/30/24 tablet torsemide 20 mg tablet 20 mg PO BID 08/30/24 08/30/24 08/30/24 Active Medications Generic Name Dose Route Start Last Admin Trade Name Capri PRN Reason Stop Dose Admin Acetaminophen 500 mg 08/30/24 23:26 08/31/24 21:00 Acetaminophen 500 Mg Tab PO 09/29/24 23:25 500 mg Q6H PRN Administration fever/pain Allopurinol 300 mg 08/31/24 09:00 09/01/24 08:45 Allopurinol 300 Mg Tab PO 09/30/24 08:59 300 mg QAM MOODY Administration Amoxicillin/Clavulanate Potassium 1 tab 08/31/24 08:00 09/01/24 08:44 Amoxicillin/Clavulanate 875 Mg Tab PO 09/10/24 07:59 1 tab BIDM MOODY Administration Protocol Furosemide 40 mg 09/01/24 09:00 09/01/24 09:53 Furosemide 40 Mg/4 Ml Vial IV 10/01/24 08:59 Not Given DAILY MOODY Insulin Aspart 0 units 08/31/24 01:52 09/01/24 08:43 Insulin Aspart Per Unit Charge SC 09/30/24 01:51 1 units ACHS MOODY Administration Insulin Glargine 5 units 08/31/24 01:52 09/01/24 08:47 Lantus Per Unit Charge SQ 09/30/24 01:51 5 units BID MOODY Administration Lactulose 30 gm 08/31/24 09:00 09/01/24 08:47 Lactulose Syrup 30 Gm/45 Ml Udp PO 09/30/24 08:59 30 gm TID MOODY Administration Magnesium Chloride 64 mg 08/31/24 11:30 09/01/24 08:53 Magnesium Chloride W/Calcium 64mg Delayed Rel Tab PO 09/30/24 11:29 64 mg QAM MOODY Administration Midodrine 7.5 mg 08/31/24 08:00 09/01/24 08:44 Midodrine Hcl 2.5 Mg Tab PO 09/30/24 07:59 7.5 mg TIDM MOODY Administration Pantoprazole Sodium 40 mg 08/31/24 06:30 09/01/24 05:47 Pantoprazole 40 Mg Tab PO 09/30/24 06:29 40 mg DAILYBB MOODY Administration Potassium Chloride 20 meq 08/31/24 14:00 09/01/24 08:56 Potassium Chloride Crtab 20 Meq Tabcr PO 09/30/24 13:59 20 meq TID MOODY Administration Potassium Phosphate 2 tab 09/01/24 09:00 09/01/24 09:51 Pot Phosphate Monobasic W/ Sod Tab PO 09/02/24 21:01 2 tab QID MOODY Administration Rifaximin 550 mg 08/30/24 23:30 09/01/24 08:49 Rifaximin 550 Mg Tablet PO 09/29/24 23:29 550 mg BID MOODY Administration
[2024-09-02 06:04] LABS: Hematocrit (blood only) 26.2 % (42.0-52.0); Hemoglobin 8.9 g/dl (14.0-18.0); Mean Corpuscular Hemoglobin 35.5 pg (25.0-34.0); Mean Corpuscular Volume 104.4 fL (80.0-100.0); Mean Platelet Volume 10.6 fL (9.4-12.4); Platelet Count 72 K/uL (130-400); RDW Coefficient of Variation 15.9 % (11.5-14.5); RDW Standard Deviation 60.7 fL (36.4-46.3); Red Blood Count 2.51 M/uL (4.70-6.10); White Blood Count 3.14 K/ul (4.8-10.8)
[2024-09-02 06:29] LABS: INR 1.6 (0.9-1.1); Prothrombin Time 16.8 Seconds (9.0-12.0)
[2024-09-02 06:33] LABS: Albumin Globulin Ratio 0.9 (0.9-2); Albumin Level 2.6 gm/dl (3.4-5.0); BUN Creatinine Ratio 7.6 (10-20); Bilirubin,Total 3.8 mg/dl (0.2-1.0); Calcium 8.1 mg/dl (8.6-10.3); Creatinine Clr Calc Pharmacy 107.9 ml/min; Globulin 2.8 gm/dl (2.5-4.0); Magnesium 1.7 mg/dl (1.7-2.4); Phosphorus 2.9 mg/dl (2.5-4.9); Potassium 3.5 mmol/L (3.5-5.1); Total Protein 5.4 gm/dl (6.0-8.3)
--- NOTE | 2024-09-02 11:14 | Discharge Summary ---
Discharge Summary Date of Service September 02, 2024 Principal Dx & Hospital Course #1 = Principal Diagnosis (1) Pleural effusion: (2) Mass of soft tissue of neck: (3) Thyroid lesion: (4) Ascites: (5) 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: (6) Orthostatic hypotension: (7) Diabetes mellitus, type 2: Plan Patient presents emergency room with acute onset of dyspnea and paroxysmal nocturnal dyspnea. Patient has known cirrhosis with ascites. In the emergency room imaging consistent with developing pleural effusion. Also on imaging was noted a soft tissue mass of his neck. Patient was admitted to the hospital. He was diuresed for the pleural effusion. His dyspnea rapidly improved. He was seen by GI who recommended continuing attempts at diuresis. His midodrine was increased to manage his orthostasis. He tolerated this well. Patient's pleural effusion was due to his accumulating ascites in the abdomen crossing through the diaphragm. Symptoms resolved with diuresis and paracentesis. He was placed empirically on antibiotics for possible upper respiratory/neck infection as etiology for this mass. On the day of discharge patient underwent paracentesis approximate 2-1/2 L of fluid was removed. Postprocedure course was uneventful. His dyspnea completely resolved. His electrolytes were replaced. He already has a standing order for as needed paracentesis. Has follow-up with his roentgenology teacher. He will follow-up with his PCP to discuss further imaging of his neck and possible outpatient ENT referral. Notes For Next Care Provider May need referral to ENT for neck mass Consider thyroid ultrasound Follow-up with gastroenterology as previously scheduled Continue as needed paracentesis May need to consider adding Aldactone to his medical regimen. Medication Changes From Visit Electrolyte supplementation was increased Short course of Augmentin for possible neck infection Admission HPI Per Admitting Provider History obtained from patient and records. Medical history significant for moderate , hypotension on midodrine, hyperlipidemia, pulmonary hypertension, NAFLD cirrhosis, hepatocellular CA, left pleural effusion, DM2 insulin requiring, BPH, chronic hyponatremia, chronic pancytopenia (baseline hemoglobin 9-10), gout, past tobacco abuse Recent confinement last June 2024 for ascites and left pleural effusion in the setting of decompensated cirrhosis. Diagnostic and therapeutic paracentesis during confinement. Analysis consistent with transudative fluid. Pulmonology consulted for left pleural effusion. Pleural effusion likely secondary to hepatic hydrothorax Diuretic Rx recommended. Patient noted progressive abdominal distention over the last few weeks. No pain. Patient compliant with home medications. Does not measure fluid intake because he does not drink as much anyway. Outpatient paracenteses contemplated this week as per patient. Last few days, patient noted shortness of breath worse on lying down. Cough symptoms productive of clear sputum. Legs more swollen than usual. Patient also noted left jaw pain, possible dental infection which happens from time to time. Some trouble opening the mouth. No fever, no chills. Medical History as above Surgical History : None Family History : DM, COPD, heart disease Personal/Social history : Past tobacco abuse, no EtOH intake, disabled Admission Exam Per Admitting Provider See H&P Discharge Exam Constitutional: Alert, nontoxic, no acute distress HEENT: Mucous membranes moist. Lungs: Decreased breath sounds left base, however improved, few crackles, no wheezes CV: S1-S2, regular Abdomen: Soft, no significant fluid wave, no tenderness Extremities: No significant edema Neuro: No focal deficits Psych: Cooperative, normal mood Updated Medication List Medication Instructions Recorded Confirmed Type allopurinol 300 mg tablet 300 mg PO QAM 06/03/19 08/30/24 History metformin 500 mg tablet 500 mg PO BIDM 06/03/19 08/30/24 History ascorbic acid (vitamin C) 1,000 mg 1 g PO QAM 08/27/23 08/30/24 History tablet (Vitamin C) rifaximin 550 mg tablet (Xifaxan) 550 mg PO BID 01/02/24 08/30/24 History omeprazole 20 mg capsule,delayed 20 mg PO DAILYBB 02/27/24 08/30/24 History release lactulose 20 gram/30 mL oral 30 g PO TID Cirrhosis 07/18/24 08/30/24 History solution sodium chloride 1,000 mg soluble 1,000 mg DAILY 08/30/24 08/30/24 History tablet torsemide 20 mg tablet 20 mg PO BID 08/30/24 08/30/24 History amoxicillin 875 mg-potassium 1 tab PO BIDM 5 days #10 tabs 09/02/24 Rx clavulanate 125 mg tablet magnesium chloride 64 mg 64 mg PO BID 30 days #60 tabs 09/02/24 Rx (magnesium chloride) tablet,delayed release (Mag 64) midodrine 2.5 mg tablet 7.5 mg (3 x 2.5 mg) PO TIDM 30 09/02/24 Rx days #180 tabs potassium chloride 10 mEq 20 meq (2 x 10 mEq) PO TID #180 09/02/24 Rx tablet,extended release(part/cryst) tabs Hospital Stay Data Consultations 08/30/24 21:38 ED Decision to Admit Stat 08/31/24 01:10 Consult Gastroenterology Routine Diagnostic Imagining Performed 08/30/24 19:15 CT angio chest PE protocol Stat 08/30/24 23:26 CT soft tissue neck wo con Stat 09/02/24 11:12 IR paracentesis abd w/img US Routine Reviewed imaging, laboratory and diagnostic studies. Pertinent findings as below. WBCs 3.1 Hemoglobin 8.9 Platelets 72 INR 1.6 Electrolytes improved, potassium 3.5, magnesium 1.7 Creatinine 0.92 I refer you to imaging reports for details Pending Results Patient Have Any Pending Studies at Discharge: No Discharge Instructions Given to Patient (Per Discharging Provider) Follow-up with your roentgenology teacher as scheduled Continue with as needed paracentesis as you have done prior to admission You will need to discuss with your PCP follow-up for this thyroid mass. You may need outpatient ENT referral and thyroid imaging Total Time Total Time Spent Total Time Spent (In Minutes): 38
[2024-09-02 11:33] VITALS: BP 104/67; PULSE 78; RESP 12; TEMP 97.7; O2SAT 97
--- NOTE | 2024-09-02 14:28 | Ultrasound Report ---
ULTRASOUND-GUIDED PARACENTESIS CLINICAL HISTORY: Ascites PROCEDURE: Procedure and risks were explained. Informed consent was obtained. A final timeout was com pleted. The abdomen was prepped and draped in sterile fashion. 1% lidocaine was utilized for skin ane sthesia. Utilizing ultrasound guidance, a 5 Urdu safety centesis catheter was advanced into the left lower q uadrant pocket of ascites. Ultrasound images were obtained. A total of 2.2 L of ascites fluid was rem em and discarded. The catheter was removed and Band-Aid applied. The patient tolerated the procedur e well. Vital signs will be monitored postprocedure. IMPRESSION: Ultrasound-guided paracentesis as above. Performed, dictated, and signed by Maximo Moore PA-C; to be co-signed by Dr. Issac Rankin. Electronically signed by: Issac Rankin M.D. 09/02/2024 2:32 PM
== END 2024-09-02 13:40 | disposition home or self-care (01) | DRG 433 ==
LOC: ED 18:40 → 2N 23:24 → SUATTDRO 23:24 → 2N 08-31 00:44

== ENCOUNTER 2024-11-29 03:30 | Observation (INO) ==
--- NOTE | 2024-11-29 04:24 | Emergency Department Note ---
Impression & Plan Hernia, umbilical, Ascites, Hypokalemia, Hypoalbuminemia ED Provider Note ED Provider Note NAME: SATISH HUERTA AGE:59 SEX: Male : 1965 ARRIVES VIA: EMS INFORMANT: Patient ED PROVIDER(s): Rosario Huynh DO CHIEF COMPLAINT: Leaking ascitic fluid HPI: This is a 59-year-old male presents emerged department due to concern for leakage of ascitic fluid. Patient with known liver disease and does have paracenteses performed every 10 days by IR. Patient states he has been feeling well without any abdominal pain, fevers or chills, nausea or vomiting. He states he does have a known umbilical hernia but does occasionally develop dry skin. Patient states he woke up tonight from his sleep realizing that his bed sheets were wet and when he looked down he realized he was steadily leaking ascitic fluid from the umbilical hernia and a scab previously noted centrally was now missing. He believes he may have accidentally knocked the scab off creating a path for the ascitic fluid to leak. He states he was scheduled this morning at 9 AM to have another paracentesis performed. PAST MEDICAL HISTORY:See Below PAST SURGICAL HISTORY:See Below FAMILY HISTORY:See Below SOCIAL HISTORY:See Below HOME MEDICATIONS:See Below ALLERGIES:See Below VITALS:See Below PHYSICAL EXAMINATION: GENERAL: alert, well appearing, well nourished, no distress, non-toxic EYE EXAM: normal conjunctiva, PERRL and EOM's grossly intact OROPHARYNX: no exudate, no erythema, lips, buccal mucosa, and tongue normal and mucous membranes are dry NECK: supple, no nuchal rigidity, no adenopathy, non-tender LUNGS: Clear to auscultation. Normal chest wall mechanics, no w/r/r HEART: no murmurs, S1 normal and S2 normal ABDOMEN: abdomen soft, non-tender, normo-active bowel sounds, no masses, no rebound or guarding. Protuberant abdomen with fluid wave, umbilical hernia noted with steady stream of ascitic fluid leaking from a central location. No evidence of bleeding, no surrounding erythema or crepitus. Prior site of paracentesis in LLQ. SKIN: no rashes, petechiae, orbruising UPPER EXTREMITIES: upper extremities are grossly normal. FROM, nml pulses b/l. LOWER EXTREMITIES: No pitting edema. FROM, nml pulses b/l. NEURO EXAM: Normal sensorium, cranial nerves II-XII grossly intact, normal speech, no facial droop,nogross weakness of arms, no gross weakness of legs. Gross sensation intact. No ataxia. Vital Signs: reviewed and remarkable Differential Diagnosis: perf, ascitic leak, incarcerated hernia, cellulitis, sbp, as well as others were considered MEDICAL DECISION MAKING: THis is a 59 yo male who presents to the ER due to ascitic fluid leaking from the umbilical hernia he states is chronic. Patient denied any prodromal symptoms. He was afebrile and denied pain. VS stable. Patient does receive frequent scheduled paracentesis as an outpatient and is due this am. Due to volume of ascitic fluid leaking out I contacted general surgery. Patient seen by ALEX at bedside who recommended admission for monitoring and obtaining basic labs. Case discussed with the hospitalist. Labs drawn and sent, IV established, and he was monitored on telemetry. A colostomy bag was placed over the hernia to capture the ascitic fluid to monitor volume out. This was connect to a sahu bag. After several liters patient asked to roll onto his side and the stream began to decrease. Patient quickly drained 6 L from this spontaneous ascitic leak. Vitals remained stable. Patient noted to be hypokalemic and was given oral repletion. Consultation(s): 0415: Patient seen by Clyde Bowers PA-C with general surgery. Recommends admission, basic labs, IV antibiotics. 0508: Discussed with Dr. Ellis, [facility] hospitalist team, for additional evaluation and mgmt. ER Treatment Provided: See below Diagnostics Interpreted By Me: -Cardiac Monitoring: An order was placed for continuous cardiac monitoring. The monitor shows a rate of 97 with normal sinus rhythm. -Laboratory studies: As stated above and show below. Triage Nursing Note Reviewed Prior/Outside Records Reviewed Past Med/Surg History Problem List (Updated 12/01/24 @ 17:58 by Rosario Huynh DO) Hypoalbuminemia (Acute) Hypokalemia (Acute) Hernia, umbilical (Acute) Thyroid lesion Mass of soft tissue of neck Acute dyspnea (Acute) Pleural effusion (Acute) Pleural effusion Hypokalemia (Acute) Hypomagnesemia (Acute) Constipation (Acute) Abdominal pain (Acute) Hyponatremia Orthostatic hypotension Dizziness (Acute) Medical non-compliance (Acute) Hyperammonemia (Acute) Ascites (Acute) Urinary retention Cirrhosis (Acute) Morbid obesity Hepatic encephalopathy 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 "if i get up to fast". S/P abdominal paracentesis Fracture of rib of right side 2013 Anaplasmosis 2019 Acute hepatic encephalopathy Cardiac murmur HX Hypertension Right rib fracture hx ~. Surgical History History of esophagogastroduodenoscopy (EGD) History of colonoscopy Family History Mother History of colonoscopy Brother Family history of diabetes mellitus Brother Family history of diabetes mellitus Grandmother (Paternal) Family history of diabetes mellitus Other No family history of adverse response to anesthesia Social History Smoking Status: Former smoker Tobacco Type: Smokeless Tobacco (Dip or Chew) Second Hand Exposure: No; Do You Dip or Chew Tobacco: Yes; Hx Alcohol Use: No Hx Substance Use: No Preferred Language: Wolof Communication Ability: Effective Bonding Molder Required: No Beliefs That Will Affect Care: None marital status: Single Current Living Situation: Family Current Living Situation Comment: With brother and mother Feels Safe at Home: Yes Assistive Devices: Cane and Walker Allergies Allergies Allergy/AdvReac Type Severity Reaction Status Date / Time aspirin AdvReac Intermediate NOSE Verified 11/29/24 07:29 BLEEDS--IF TAKES REGULARLY salicylates AdvReac Intermediate NOSE BLEEDS Verified 11/29/24 07:29 Home Meds Home Medications Medication Instructions Recorded Confirmed allopurinol 300 mg tablet 300 mg PO QAM 06/03/19 11/29/24 rifaximin 550 mg tablet (Xifaxan) 550 mg PO BID 01/02/24 11/29/24 omeprazole 20 mg capsule,delayed 20 mg PO DAILYBB 02/27/24 11/29/24 release lactulose 20 gram/30 mL oral 45 ml PO TID Cirrhosis 07/18/24 11/29/24 solution sodium chloride 1,000 mg soluble 1,000 mg BID 08/30/24 11/29/24 tablet torsemide 20 mg tablet 20 mg PO DAILY 08/30/24 11/29/24 ascorbic acid (vitamin C) 1,000 mg 1 g PO 1XD 11/29/24 11/29/24 tablet (Vitamin C) atorvastatin 1 cap AC 11/29/24 11/29/24 blood-glucose sensor (Dexcom G7 11/29/24 11/29/24 Sensor device) docusate sodium 100 mg capsule 100 mg PO 2XD 11/29/24 11/29/24 insulin degludec 100 unit/mL (3 10 unit subcut AC 11/29/24 11/29/24 mL) subcutaneous pen magnesium chloride 64 mg 64 mg PO AC 11/29/24 11/29/24 (magnesium chloride) tablet,delayed release (Mag-Delay) multivitamin 1 tab AC 11/29/24 11/29/24 mupirocin 2 % topical ointment 1 applic topical TID 11/29/24 11/29/24 tamsulosin 0.4 mg capsule 0.4 mg PO DAILY 11/29/24 11/29/24 Previous Rx's Medication Instructions Recorded midodrine 2.5 mg tablet 7.5 mg (3 x 2.5 mg) PO TIDM 30 09/02/24 days #180 tabs potassium chloride 10 mEq 20 meq (2 x 10 mEq) PO TID #180 09/02/24 tablet,extended release(part/cryst) tabs Results & Data (ED) Vital Signs Vital Signs - 24 hr 11/29/24 03:43 11/29/24 03:43 Temperature 37 C Temperature Source Oral Pulse Rate 99 H 98 H Respiratory Rate 20 Blood Pressure 106/66 Blood Pressure Mean 79 Pulse Oximetry 100 Oxygen Delivery Method Room Air Sepsis Recent Fever Within 48 Hours No Sepsis New/Unexplained Change in Mental Status N/A Sepsis Action Taken by Nursing No Action Required Laboratory Data 11/30/24 16:44 11/30/24 06:30 Lab Results 11/29/24 Range/Units 05:20 WBC 4.01 L (4.8-10.8) K/ul RBC 2.52 L (4.70-6.10) M/uL Hgb 8.8 L (14.0-18.0) g/dl Hct 25.7 L (42.0-52.0) % MCV 102.0 H (80.0-100.0) fL MCH 34.9 H (25.0-34.0) pg MCHC 34.2 (32.0-36.0) g/dL RDW Std Deviation 71.7 H (36.4-46.3) fL RDW Coeff of [place] 19.4 H (11.5-14.5) % Plt Count 71 L (130-400) K/uL MPV 10.8 (9.4-12.4) fL Immature Gran % (Auto) 0.5 % Neut % (Auto) 68.4 % Lymph % (Auto) 10.5 % [place] % (Auto) 16.2 % Eos % (Auto) 3.2 % Baso % (Auto) 1.2 % Neut # (Auto) 2.74 (1.40-6.50) K/uL Lymph # (Auto) 0.42 L (1.20-3.40) K/uL [place] # (Auto) 0.65 H (0.11-0.59) K/uL Eos # (Auto) 0.13 (0.00-0.50) K/uL Baso # (Auto) 0.05 (0.00-0.20) K/uL Immature Gran # (Auto) 0.02 (0.01-0.20) K/uL PT 16.6 H (9.0-12.0) Seconds INR 1.6 H (0.9-1.1) Sodium 129 L (136-145) mmol/L Potassium 2.9 L (3.5-5.1) mmol/L Chloride 93 L (98-107) mmol/L Carbon Dioxide 29 (21-32) mmol/L Anion Gap 7 (3-11) BUN 11 (6-23) mg/dl Creatinine 1.00 (0.6-1.4) mg/dl Est Cr Clr Drug Dosing 101.2 ml/min eGFR 86.16 BUN/Creatinine Ratio 11.0 (10-20) Glucose 176 H (70-99(Fasting)) mg/dl Estimat Average Glucose 88 mg/dl Hemoglobin A1c 4.7 (4.5-5.6) % Calcium 7.8 L (8.6-10.3) mg/dl Magnesium 1.8 (1.7-2.4) mg/dl Total Bilirubin 4.8 H (0.2-1.0) mg/dl AST 57 H (13-39) U/L ALT 27 (7-52) U/L Alkaline Phosphatase 113 H (34-104) U/L Total Protein 6.1 (6.0-8.3) gm/dl Albumin 2.5 L (3.4-5.0) gm/dl Globulin 3.6 (2.5-4.0) gm/dl Albumin/Globulin Ratio 0.7 L (0.9-2) Lipase 47 (11-82) U/L Administered Medications Discontinued Medications Ceftriaxone Sodium (Rocephin) 2,000 mg in 50 mls @ 100 mls/hr IV NOW STA Stop: 11/29/24 04:47 Last Infusion: 11/29/24 05:56 Dose: Infused Documented By: Admin: 11/29/24 05:25 Dose: 100 mls/hr Documented By: SON Albumin Human (Albumin 25%) 25 gm in 100 mls @ 50 mls/hr IV ONE ONE Stop: 11/29/24 07:13 Last Infusion: 11/29/24 08:16 Dose: Infused Documented By: Admin: 11/29/24 06:04 Dose: 50 mls/hr Documented By: SON Piperacillin Sod/Tazobactam Sod (Zosyn) 4.5 gm in 100 mls @ 25 mls/hr IV Q8H [facility]; Protocol Stop: 12/03/24 12:59 Last Infusion: 11/30/24 17:10 Dose: Infused Documented By: Admin: 11/30/24 12:46 Dose: 25 mls/hr Documented By: Infusion: 11/30/24 08:30 Dose: Infused Documented By: Admin: 11/30/24 04:37 Dose: 25 mls/hr Documented By: Infusion: 11/30/24 00:10 Dose: Infused Documented By: Admin: 11/29/24 19:57 Dose: 25 mls/hr Documented By: Infusion: 11/29/24 17:04 Dose: Infused Documented By: Admin: 11/29/24 13:01 Dose: 25 mls/hr Documented By: LEO Albumin Human (Albumin 25%) 25 gm in 100 mls @ 50 mls/hr IV Q8H MOODY Stop: 12/02/24 13:59 Last Admin: 11/30/24 14:12 Dose: Not Given Documented By: Infusion: 11/30/24 08:30 Dose: Infused Documented By: Admin: 11/30/24 05:22 Dose: 50 mls/hr Documented By: Infusion: 11/30/24 00:10 Dose: Infused Documented By: Admin: 11/29/24 22:03 Dose: 50 mls/hr Documented By: Infusion: 11/29/24 15:51 Dose: Infused Documented By: Admin: 11/29/24 13:46 Dose: 50 mls/hr Documented By: LEO Piperacillin Sod/Tazobactam Sod (Zosyn) 4.5 gm in 100 mls @ 200 mls/hr IV NOW STA; Protocol Stop: 11/29/24 06:58 Last Infusion: 11/29/24 09:03 Dose: Infused Documented By: Admin: 11/29/24 08:11 Dose: 200 mls/hr Documented By: APRIL Insulin Aspart (Insulin Aspart Per Unit Charge) 0 units SC ACHS MOODY Stop: 12/29/24 11:29 Last Admin: 11/30/24 17:27 Dose: Not Given Documented By: Admin: 11/30/24 12:45 Dose: 8 units Documented By: MARIEL Co-signed By: ARACELI Admin: 11/30/24 08:37 Dose: 2 units Documented By: MARIEL Co-signed By: EDLeslie Admin: 11/29/24 21:13 Dose: 1 units Documented By: HERSON Co-signed By: ANTONETTE Admin: 11/29/24 17:04 Dose: 10 units Documented By: LEO Co-signed By: RED Admin: 11/29/24 12:31 Dose: 4 units Documented By: LEO Co-signed By: RED Lactulose (Lactulose Syrup 30 Gm/45 Ml Udp) 30 gm PO TID MOODY Stop: 12/29/24 13:59 Last Admin: 11/30/24 14:00 Dose: 30 gm Documented By: Admin: 11/30/24 08:02 Dose: 30 gm Documented By: Admin: 11/29/24 19:58 Dose: Not Given Documented By: Admin: 11/29/24 15:01 Dose: 30 gm Documented By: LEO Lidocaine/Epinephrine (Lidocaine 1%/Epinephrine 1:100,000 50 Ml Vial) 10 ml INFIL NOW ONE Stop: 11/29/24 09:57 Last Admin: 11/29/24 12:03 Dose: Not Given Documented By: LEO Magnesium Chloride (Magnesium Chloride W/Calcium 64mg Delayed Rel Tab) 64 mg PO AC MOODY Stop: 12/29/24 16:29 Last Admin: 11/30/24 16:27 Dose: 64 mg Documented By: Admin: 11/30/24 12:46 Dose: 64 mg Documented By: Admin: 11/30/24 08:01 Dose: 64 mg Documented By: Admin: 11/29/24 14:42 Dose: 64 mg Documented By: LEO Midodrine (Midodrine Hcl 2.5 Mg Tab) 7.5 mg PO TIDM MOODY Stop: 12/29/24 16:59 Last Admin: 11/30/24 18:04 Dose: Not Given Documented By: Admin: 11/30/24 12:44 Dose: 7.5 mg Documented By: Admin: 11/30/24 08:01 Dose: 7.5 mg Documented By: Admin: 11/29/24 17:04 Dose: 7.5 mg Documented By: LEO Pantoprazole Sodium (Pantoprazole 40 Mg Tab) 40 mg PO DAILYBB MOODY Stop: 12/30/24 06:29 Last Admin: 11/30/24 05:23 Dose: 40 mg Documented By: HERSON Potassium Chloride (Potassium Chloride Crtab 20 Meq Tabcr) 40 meq PO NOW STA Stop: 11/29/24 06:03 Last Admin: 11/29/24 06:35 Dose: 40 meq Documented By: SON Potassium Chloride (Potassium Chloride Crtab 20 Meq Tabcr) 40 meq PO ONE ONE Stop: 11/29/24 08:01 Last Admin: 11/29/24 08:11 Dose: 40 meq Documented By: APRIL Potassium Chloride (Potassium Chloride Crtab 20 Meq Tabcr) 20 meq PO TID MOODY Stop: 12/29/24 13:59 Last Admin: 11/30/24 14:01 Dose: 20 meq Documented By: Admin: 11/30/24 08:39 Dose: 20 meq Documented By: Admin: 11/29/24 20:00 Dose: 20 meq Documented By: Admin: 11/29/24 14:41 Dose: 20 meq Documented By: LEO Rifaximin (Rifaximin 550 Mg Tablet) 550 mg PO BID MOODY Stop: 12/29/24 20:59 Last Admin: 11/30/24 08:01 Dose: 550 mg Documented By: Admin: 11/29/24 19:58 Dose: 550 mg Documented By: HERSON Sodium Chloride (Sodium Chloride 1 Gm Tablet) 1 gm PO BID MOODY Stop: 12/29/24 20:59 Last Admin: 11/30/24 08:02 Dose: 1 gm Documented By: Admin: 11/29/24 19:58 Dose: 1 gm Documented By: HERSON Torsemide (Torsemide 20 Mg Tab) 20 mg PO DAILY MOODY Stop: 12/30/24 08:59 Last Admin: 11/30/24 08:02 Dose: 20 mg Documented By: MARIEL Discharge Plan Visit Data Chief Complaint: Abdominal Pain Stated Complaint: Abdominal Pain ED Provider: Rosario Huynh Discharge Problem: Hernia, umbilical, Ascites, Hypokalemia, Hypoalbuminemia Patient Disposition: Admitted As Inpatient Discharge Instructions Interventions: ED Discharge Assessment Last Done: 11/29/24 09:23
--- NOTE | 2024-11-29 04:38 | Surgery Consultation ---
Date of Consultation November 29, 2024 Assessment & Plan (1) Hernia, umbilical: I discussed with the treating emergency room physician the patient is going to be admitted on the hospitalist service. From a surgical perspective we recommend the following: The patient is noted to have umbilical hernia but due to his multiple medical comorbidities he would be a poor surgical candidate for umbilical herniorrhaphy repair. He would also be a poor hernia repair candidate due to his underlying liver disease and rapid accumulation of ascitic fluid making successful repair of the hernia less successful As the patient does have an ultrasound-guided paracentesis scheduled for today would recommend notifying interventional radiology of his admission so the patient's procedure can be undertaken while he is in the hospital Would recommend obtaining baseline laboratories including coags Due to the patient's ascitic leak the treating emergency room addition notes that they are going to initiate antibiotics In order to control of the current ascites leak I recommended to the nursing staff that they place an ostomy bag over his ascites which should be easily emptied. As noted the patient is nontoxic-appearing and has no pain whatsoever and notes that he feels completely fine other than having the leaking ascites therefore I do not feel an acute surgical intervention is warranted Additional recommendations with forthcoming based on his clinical course as it unfolds as above. doing ok. after the paracentesis will try and place a suture at the pinhole to try and stop the drainage. In light of the ascities/cirrhosis do not recommend repair of the Umb hernia. Supervising Physician Co-Signing Physician Notes pnt d/w YADI overnight, labs and prior imaging reviewed, agree with above. 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 Admitted to medicine, ostomy bag placed. Recommend medical management of ascites, consider TIPS. Abx to prevent SBP. Further plan of care per oncoming surgeon Dr. Williamson. History of Present Illness Reason for Consultation: Ascitic fluid leak at umbilical hernia History of Present Illness This is a 15-year-old male with an underlying history of nonalcoholic fatty liver disease and subsequent cirrhosis. The patient presented to the emergency department secondary to ascitic fluid leaking from his umbilicus. The patient says that he feels absolutely fine but woke up in bed with fluid leaking from his umbilicus as noted previously. Patient says that he does have a known umbilical hernia and feels as though he had a small scab that became dry and brittle and when he woke up in bed noted a large amount of ascitic fluid leaking. He specifically says he has absolutely no pain with this condition. He has not had any fevers, shakes, or chills. He notes his bowels are working fine and normally and his appetite is normal. Patient does report that he does have a history of hepatocellular cancer and he had what he describes as a chemoembolization procedure most recently 7 to 8 months ago. The patient says that he he does require paracentesis due to the development of ascites with his most recent paracentesis being performed on 11/19/2024 at which time 7 L of fluid were removed, and he also had a paracentesis on 11/06/2024 where 7 L of fluid were taken off. Review of records show that he did require paracentesis on 3 occasions in September 2024 and also on 2 occasions in August 2024. He notes he has not had any additional surgeries or procedures performed on his abdomen. The patient does report that he is scheduled for an additional paracentesis today at 9:00 AM by the interventional radiology department about any [facility]. Patient also adds that he has been evaluated by the liver transplant clinic at [facility] in [place], [place]. Since arrival to the hospital he has not had any labs or imaging. At the time of my interview the patient was in no distress. Allergies Allergy/AdvReac Type Severity Reaction Status Date / Time aspirin AdvReac Intermediate NOSE Verified 11/29/24 07:29 BLEEDS--IF TAKES REGULARLY salicylates AdvReac Intermediate NOSE BLEEDS Verified 11/29/24 07:29 Home Medications Medication Instructions Recorded Confirmed Type allopurinol 300 mg tablet 300 mg PO QAM 06/03/19 11/29/24 History rifaximin 550 mg tablet (Xifaxan) 550 mg PO BID 01/02/24 11/29/24 History omeprazole 20 mg capsule,delayed 20 mg PO DAILYBB 02/27/24 11/29/24 History release lactulose 20 gram/30 mL oral 45 ml PO TID Cirrhosis 07/18/24 11/29/24 History solution sodium chloride 1,000 mg soluble 1,000 mg BID 08/30/24 11/29/24 History tablet torsemide 20 mg tablet 20 mg PO DAILY 08/30/24 11/29/24 History midodrine 2.5 mg tablet 7.5 mg (3 x 2.5 mg) PO TIDM 30 09/02/24 11/29/24 Rx days #180 tabs potassium chloride 10 mEq 20 meq (2 x 10 mEq) PO TID #180 09/02/24 11/29/24 Rx tablet,extended release(part/cryst) tabs ascorbic acid (vitamin C) 1,000 mg 1 g PO 1XD 11/29/24 11/29/24 History tablet (Vitamin C) atorvastatin 1 cap AC 11/29/24 11/29/24 History blood-glucose sensor (Dexcom G7 11/29/24 11/29/24 History Sensor device) docusate sodium 100 mg capsule 100 mg PO 2XD 11/29/24 11/29/24 History insulin degludec 100 unit/mL (3 10 unit subcut AC 11/29/24 11/29/24 History mL) subcutaneous pen magnesium chloride 64 mg 64 mg PO AC 11/29/24 11/29/24 History (magnesium chloride) tablet,delayed release (Mag-Delay) multivitamin 1 tab AC 11/29/24 11/29/24 History mupirocin 2 % topical ointment 1 applic topical TID 11/29/24 11/29/24 History tamsulosin 0.4 mg capsule 0.4 mg PO DAILY 11/29/24 11/29/24 History Patient History Medical History Ureterolithiasis Hepatocellular carcinoma s/p IR embolization Pulmonary hypertension Diabetes mellitus NAFLD (nonalcoholic fatty liver disease) Chronic hyponatremia Dizziness r/t the cirrhosis - using a cane at this time. "if i get up to fast". S/P abdominal paracentesis Fracture of rib of right side 2013 Anaplasmosis 2019 Acute hepatic encephalopathy Cardiac murmur HX Hypertension Right rib fracture hx ~2013/2014. Surgical History History of esophagogastroduodenoscopy (EGD) History of colonoscopy Family History Mother History of colonoscopy Brother Family history of diabetes mellitus Brother Family history of diabetes mellitus Grandmother (Paternal) Family history of diabetes mellitus Other No family history of adverse response to anesthesia Social History Smoking Status: Former smoker Tobacco Type: Smokeless Tobacco (Dip or Chew) Second Hand Exposure: No; Do You Dip or Chew Tobacco: Yes; Hx Alcohol Use: No Hx Substance Use: No Preferred Language: Welsh Communication Ability: Effective Latent Fingerprint Examiner Required: No Beliefs That Will Affect Care: None marital status: Single Current Living Situation: Family Current Living Situation Comment: With brother and mother Feels Safe at Home: Yes Assistive Devices: Cane and Walker Review of Systems Review of Systems: All systems reviewed & are unremarkable except as noted in HPI & below Physical Exam Constitutional: well developed, well nourished and + obese; no acute distress Eyes: Wears glasses ENMT: Ears: no hearing impairment and no external ear abnormality Neck: trachea midline Respiratory: normal respiratory effort; no respiratory distress and no labored breathing Gastrointestinal (Abdomen): Abdomen is large and rotund with an apparent large volume of ascites. Patient has no pain whatsoever at the time of my exam and has no rebound tenderness or guarding. At the umbilicus there appears to be a small scab with a large volume of ascitic fluid leaking. This fluid appeared consistent with intra-abdominal ascites and did not appear purulent or cloudy. He did have a notable umbilical hernia which was nonpainful to palpation. There are no overlying skin changes or visible bowel. Musculoskeletal: No calf tenderness Skin: See above description for skin description at hernia site Psychiatric: A+Ox3, euthymic affect Results & Data Vital Signs (Past 12 Hours) Vital Signs Temp Pulse Resp BP Pulse Ox O2 Del Method 11/29/24 03:43 37 C 98 H 20 106/66 100 Room Air 11/29/24 03:43 99 H PG Care Time/CCT Total # of Minutes Spent Total Time Spent with Patient: Total time spent is greater than 50% in coordination of care (as documented) at patient's floor/unit and/or counseling patient: Coding Level of Care Code 42754 IN/OBS CONSULT LVL 4,60M Diagnoses Hernia, umbilical K42.9
[2024-11-29] MEDS: cefTRIAXone SODIUM 2,000 MG/50 ML BAG IV STA (05:25)
[2024-11-29 05:47] LABS: Basophils # (auto) 0.05 K/uL (0.00-0.20); Basophils % (auto) 1.2 %; Eosinophils # (auto) 0.13 K/uL (0.00-0.50); Eosinophils % (auto) 3.2 %; Hematocrit (blood only) 25.7 % (42.0-52.0); Hemoglobin 8.8 g/dl (14.0-18.0); Immature Granulocytes # (auto) 0.02 K/uL (0.01-0.20); Immature Granulocytes % (auto) 0.5 %; Lymphocytes # (auto) 0.42 K/uL (1.20-3.40); Lymphocytes % (auto) 10.5 %; Mean Corpuscular Hemoglobin 34.9 pg (25.0-34.0); Mean Corpuscular Hgb Conc 34.2 g/dL (32.0-36.0); Mean Platelet Volume 10.8 fL (9.4-12.4); Monocytes # (auto) 0.65 K/uL (0.11-0.59); Monocytes % (auto) 16.2 %; Neutrophils # (auto) 2.74 K/uL (1.40-6.50); Neutrophils % (auto) 68.4 %; Platelet Count 71 K/uL (130-400); RDW Coefficient of Variation 19.4 % (11.5-14.5); RDW Standard Deviation 71.7 fL (36.4-46.3); Red Blood Count 2.52 M/uL (4.70-6.10); White Blood Count 4.01 K/ul (4.8-10.8)
[2024-11-29] MEDS ORDERED: ACETAMINOPHEN 500 MG TAB PO PRN (05:55)
[2024-11-29] MEDS ORDERED: PROMETHAZINE 12.5 MG/50.5 ML BAG IV PRN (05:56)
[2024-11-29] MEDS ORDERED: oxyCODONE HCL IR 5 MG TAB (IMMEDIATE RELEASE) PO PRN (05:56)
[2024-11-29 05:57] LABS: Albumin Globulin Ratio 0.7 (0.9-2); Albumin Level 2.5 gm/dl (3.4-5.0); Bilirubin,Total 4.8 mg/dl (0.2-1.0); Calcium 7.8 mg/dl (8.6-10.3); Creatinine Clr Calc Pharmacy 101.2 ml/min; Globulin 3.6 gm/dl (2.5-4.0); Magnesium 1.8 mg/dl (1.7-2.4); Potassium 2.9 mmol/L (3.5-5.1); Total Protein 6.1 gm/dl (6.0-8.3)
[2024-11-29] MEDS ORDERED: AMPICILLIN/SULBACTAM SOD 3,000 MG/100 ML BAG IV SCH (06:00)
[2024-11-29] MEDS: ALBUMIN 25% 25 GM/100 ML VIAL IV ONE (06:04)
[2024-11-29 06:15] LABS: INR 1.6 (0.9-1.1); Prothrombin Time 16.6 Seconds (9.0-12.0)
--- NOTE | 2024-11-29 06:20 | History & Physical Report ---
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, outpatient therapeutic paracentesis scheduled today at [facility] No sepsis for now moderate hypotension on midodrine pulmonary hypertension hepatocellular CA, periodic IR embolization at [facility] DM2 insulin requiring,suboptimal control as of recent hemoglobin A1c of 8.4 last March 2024 chronic hyponatremia, on sodium chloride tablets and diuretic Rx chronic pancytopenia secondary to cirrhosis, hemoglobin at baseline Recurrent hypokalemia secondary to diuretic, home insulin Rx past tobacco abuse Admit to Medical Ascitic fluid analysis from collection in colostomy bag placed at the ER following General Surgery recommendations IV albumin, Zosyn IR guided paracentesis for drainage Basal bolus insulin adjusted for clear liquid diet for now, ISS BG goal 1 10-1 40, carb count coverage, update hemoglobin A1c Replace potassium DVT prophylaxis. SCDs Re: Thrombocytopenia Full code Text document was generated using [employer] voice recognition software. It may contain grammatical or spelling errors. Kindly contact undersigned for clarification of any documentation item in question. History of Present Illness Chief Complaint: Fluid leak from hernia Primary Care Provider: Krystian Palomo MD History obtained from patient and records. Medical history significant for moderate , hypotension on midodrine, hyperlipidemia, pulmonary hypertension, NAFLD cirrhosis, hepatocellular CA, left pleural effusion, DM2 insulin requiring, BPH, chronic hyponatremia, chronic pancytopenia (baseline hemoglobin 9-10), gout, thyroid nodule, umbilical hernia, past tobacco abuse. Last confinement August, for hepatic hydrothorax secondary to decompe nsated cirrhosis status post drainage. Midodrine dose increased on discharge for orthostasis. Incidental finding of neck mass on imaging later found to be a thyroid nodule. Benign goiter on outpatient biopsy by ENT. Periodic outpatient therapeutic paracentesis by [facility] interventional radiologist every 1 to 2 weeks since leaving hospital. 7 liters drained on last visit 10 days ago. Outpatient GI provider agreeable to having procedure done every 10 days. Patient scheduled for outpatient drainage today. Patient noted clear fluid leakage from umbilical hernia yesterday. Achy abdominal pain without nausea, vomiting, fever, chills. No recollection of trauma. Denies chest pain, SOB. IV ceftriaxone administered at the ER. Medical History as above Surgical History : None Family History : DM, COPD, heart disease Personal/Social history : Past tobacco abuse, no EtOH intake, disabled Allergies Allergy/AdvReac Type Severity Reaction Status Date / Time aspirin AdvReac Intermediate NOSE Verified 06/29/24 20:54 BLEEDS--IF TAKES REGULARLY salicylates AdvReac Intermediate NOSE BLEEDS Verified 06/29/24 20:54 Home Medications Medication Instructions Recorded Confirmed Type allopurinol 300 mg tablet 300 mg PO QAM 06/03/19 08/30/24 History metformin 500 mg tablet 500 mg PO BIDM 06/03/19 08/30/24 History ascorbic acid (vitamin C) 1,000 mg 1 g PO QAM 08/27/23 08/30/24 History tablet (Vitamin C) rifaximin 550 mg tablet (Xifaxan) 550 mg PO BID 01/02/24 08/30/24 History omeprazole 20 mg capsule,delayed 20 mg PO DAILYBB 02/27/24 08/30/24 History release lactulose 20 gram/30 mL oral 30 g PO TID Cirrhosis 07/18/24 08/30/24 History solution sodium chloride 1,000 mg soluble 1,000 mg DAILY 08/30/24 08/30/24 History tablet torsemide 20 mg tablet 20 mg PO BID 08/30/24 08/30/24 History midodrine 2.5 mg tablet 7.5 mg (3 x 2.5 mg) PO TIDM 30 09/02/24 Rx days #180 tabs potassium chloride 10 mEq 20 meq (2 x 10 mEq) PO TID #180 09/02/24 Rx tablet,extended release(part/cryst) tabs Past Med/Surg History Problem List Hernia, umbilical (Acute) Thyroid lesion Mass of soft tissue of neck Acute dyspnea (Acute) Pleural effusion (Acute) Pleural effusion Hypokalemia (Acute) Hypomagnesemia (Acute) Constipation (Acute) Abdominal pain (Acute) Hyponatremia Orthostatic hypotension Dizziness (Acute) Medical non-compliance (Acute) Hyperammonemia (Acute) Ascites (Acute) Urinary retention Cirrhosis (Acute) Morbid obesity Hepatic encephalopathy 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 "if i get up to fast". S/P abdominal paracentesis Fracture of rib of right side 2013 Anaplasmosis 2019 Acute hepatic encephalopathy Cardiac murmur HX Hypertension Right rib fracture hx ~. Surgical History History of esophagogastroduodenoscopy (EGD) History of colonoscopy Family History Mother History of colonoscopy Brother Family history of diabetes mellitus Brother Family history of diabetes mellitus Grandmother (Paternal) Family history of diabetes mellitus Other No family history of adverse response to anesthesia Social History Smoking Status: Never smoker Tobacco Type: Smokeless Tobacco (Dip or Chew) Second Hand Exposure: No; Do You Dip or Chew Tobacco: Yes; Hx Alcohol Use: No Hx Substance Use: No Preferred Language: Surinamese Communication Ability: Effective Shearer Operator Required: No Beliefs That Will Affect Care: None marital status: Single Current Living Situation: Alone Current Living Situation Comment: With brother and mother Feels Safe at Home: Yes Assistive Devices: Cane Review of Systems Review of Systems: As per HPI, all other systems reviewed and negative Physical Exam Physical Exam: GENERAL: Comfortable, pleasant, obese, chronically ill, no respiratory distress SKIN: Pallor, warm HEENT: Pale palpebral conjunctivae, no ptosis, moist buccal mucosa NECK : Supple, l no tenderness CHEST : Decreased breath sounds, no tenderness HEART :RRR, systolic murmur ABDOMEN: Some distention, minimal tenderness over ostomy bag EXTREMITIES : Minimal LE swelling without LE tenderness, no other conspicuous deformities noted NEUROLOGIC : Coherent, no facial asymmetry, no other gross focality Results & Data Results & Data Vital Signs (Past 12 Hours) Vital Signs Temp Pulse Resp BP Pulse Ox O2 Del Method 11/29/24 05:30 124/69 11/29/24 05:30 124/69 11/29/24 05:30 124/69 11/29/24 05:30 96 H 12 97 11/29/24 05:27 96 H 19 100 11/29/24 05:20 125/65 11/29/24 05:20 125/65 11/29/24 05:14 114/65 11/29/24 05:14 114/65 11/29/24 05:09 96 H 18 125/65 98 11/29/24 04:45 94 H 17 99 11/29/24 03:43 37 C 98 H 20 106/ 100 Room Air 11/29/24 03:43 99 H 11/29/24 03:38 99 H 16 106/ 100 Laboratory Results Laboratory Results WBC 4.01 K/ul (4.8-10.8) L 11/29/24 05:20 RBC 2.52 M/uL (4.70-6.10) L 11/29/24 05:20 Hgb 8.8 g/dl (14.0-18.0) L 11/29/24 05:20 Hct 25.7 % (42.0-52.0) L 11/29/24 05:20 MCV 102.0 fL (80.0-100.0) H 11/29/24 05:20 MCH 34.9 pg (25.0-34.0) H 11/29/24 05:20 MCHC 34.2 g/dL (32.0-36.0) 11/29/24 05:20 RDW Std Deviation 71.7 fL (36.4-46.3) H 11/29/24 05:20 RDW Coeff of Polo 19.4 % (11.5-14.5) H 11/29/24 05:20 Plt Count 71 K/uL (130-400) L 11/29/24 05:20 MPV 10.8 fL (9.4-12.4) 11/29/24 05:20 Immature Gran % (Auto) 0.5 % 11/29/24 05:20 Neut % (Auto) 68.4 % 11/29/24 05:20 Lymph % (Auto) 10.5 % 11/29/24 05:20 [place] % (Auto) 16.2 % 11/29/24 05:20 Eos % (Auto) 3.2 % 11/29/24 05:20 Baso % (Auto) 1.2 % 11/29/24 05:20 Neut # (Auto) 2.74 K/uL (1.40-6.50) 11/29/24 05:20 Lymph # (Auto) 0.42 K/uL (1.20-3.40) L 11/29/24 05:20 [place] # (Auto) 0.65 K/uL (0.11-0.59) H 11/29/24 05:20 Eos # (Auto) 0.13 K/uL (0.00-0.50) 11/29/24 05:20 Baso # (Auto) 0.05 K/uL (0.00-0.20) 11/29/24 05:20 Immature Gran # (Auto) 0.02 K/uL (0.01-0.20) 11/29/24 05:20 PT 16.6 Seconds (9.0-12.0) H 11/29/24 05:20 INR 1.6 (0.9-1.1) H 11/29/24 05:20 Sodium 129 mmol/L (136-145) L 11/29/24 05:20 Potassium 2.9 mmol/L (3.5-5.1) L 11/29/24 05:20 Chloride 93 mmol/L (98-107) L 11/29/24 05:20 Carbon Dioxide 29 mmol/L (21-32) 11/29/24 05:20 Anion Gap 7 (3-11) 11/29/24 05:20 BUN 11 mg/dl (6-23) 11/29/24 05:20 Creatinine 1.00 mg/dl (0.6-1.4) 11/29/24 05:20 Est Cr Clr Drug Dosing 101.2 ml/min 11/29/24 05:20 eGFR 86.16 11/29/24 05:20 BUN/Creatinine Ratio 11.0 (10-20) 11/29/24 05:20 Glucose 176 mg/dl (70-99(Fasting)) H 11/29/24 05:20 Calcium 7.8 mg/dl (8.6-10.3) L 11/29/24 05:20 Magnesium 1.8 mg/dl (1.7-2.4) 11/29/24 05:20 Total Bilirubin 4.8 mg/dl (0.2-1.0) H 11/29/24 05:20 AST 57 U/L (13-39) H 11/29/24 05:20 ALT 27 U/L (7-52) 11/29/24 05:20 Alkaline Phosphatase 113 U/L (34-104) H 11/29/24 05:20 Total Protein 6.1 gm/dl (6.0-8.3) 11/29/24 05:20 Albumin 2.5 gm/dl (3.4-5.0) L 11/29/24 05:20 Globulin 3.6 gm/dl (2.5-4.0) 11/29/24 05:20 Albumin/Globulin Ratio 0.7 (0.9-2) L 11/29/24 05:20 Lipase 47 U/L (11-82) 11/29/24 05:20 Diagnostic Findings Chest x-ray as per my interpretation : Atelectasis, cardiomegaly Code Status & VTE Plan VTE Prophylaxis Plan VTE Prophylaxis will be ordered: Yes (1) Abdominal pain Abdominal location: generalized Qualified Code(s): R10.84 - Generalized abdominal pain
[2024-11-29] MEDS: POTASSIUM CHLORIDE CRTAB 20 MEQ TABCR PO STA (06:35)
--- OUTSIDE RECORDS SUMMARY | 2024-11-29 06:52 | External Medical Summary | Summary of Care ---
Author Name Unknown Organization [facility] Address [address] [place] [address] Phone [phone] Care Team Providers Care Supervisor Denture Department Name Role Phone Krystian Palomo MD Primary Care Provide r Reason for Visit * Reason Onset Date Comments Test Results Imaging Study 11/15/2024 Encounter Details Date Type Department Care Team (Late st Contact Info) Description 11/15/2024 Telephone Gastroenterology, [facility] [address] [place] [address] Ren Pineda CRNP [address] [place] [address] Test Results Imaging Study Allergies Active Allergy Reactions Criticality Noted Date Comments Aspirin 01/28/2022 Other reaction(s): bloody nose Salicylates 08/08/2001 nose bleeds documented as of this encounter (statuses as of 11/18/2024) Medications Multivitamin Adult Oral Tablet daily . 1 Active Vitamin C 1000 MG Oral Tablet daily . 1 Active Atorvastatin Calcium 20 MG Oral Tablet (Lipitor)Indication s:Hyperlipidemia with target LDL less than 100 Take 1 Tablet by mouth in the morning. 90 Tablet 1 3 Active Probiotic & Acidophilus Ex St Oral Capsule Take 1 Capsule by mouth in the morning and 1 Capsule at noon and 1 Capsule in the evening. Take with meals. Active rifAXIMin 550 MG Oral Tablet (Xifaxan)Indication s: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) TAKE ONE TABLET BY MOUTH EVERY MORNING AND ONE TABLET AT BEDTIME 60 Tablet 12 4 Active Sodium Chloride 1 GM Oral Tablet Take 1 Tablet by mouth in the morning and 1 Tablet before bedtime. 4 Active Docusate Sodium 100 MG Oral Capsule (Colace) Take 1 Capsule by mouth in the morning and 1 Capsule before bedtime. Active OneTouch Verio In Vitro Strip (Glucose Blood) Use to check blood sugars up to three times daily DxE11.9 300 Strip 3 4 Active MagDelay 64 MG Oral Tablet Delayed Release Take 1 Tablet by mouth in the morning. 4 Active Midodrine HCl 2.5 MG Oral Tablet (Proamatine)Indicat ions:at hosp d/c 09.7.24 Take 3 Tablets by mouth in the morning and 3 Tablets at noon and 3 Tablets in the evening. 4 Active Potassium Chloride [facility] 10 MEQ Oral Tablet Extended Release Take 2 Tablets by mouth in the morning and 2 Tablets at noon and 2 Tablets before bedtime. 4 Active Torsemide 20 MG Oral Tablet (Demadex) Take 1 Tablet by mouth in the morning. Active Dexcom G7 Sensor Use as directed every 10 days. DxE11.9 3 Each 3 4 Active Omeprazole 20 MG Oral Capsule Delayed Release (PriLOSEC)Indicatio ns:GERD (gastroesophageal reflux disease) Take 1 Capsule by mouth in the morning. 1 hour before the first meal of the day. 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 In the morning.. 90 Tablet 1 5 Active Tamsulosin HCl 0.4 MG Oral Capsule (Flomax)Indications :Urinary retention TAKE ONE CAPSULE BY MOUTH EVERY DAY 90 Capsule 1 5 Active Mupirocin 2 % External Ointment (Bactroban) Apply topically to affected area 3 times a day. At hospital discharge 22 g 1 5 Active Lactulose 10 GM/15ML Oral Solution (Constulose)Indicat ions:Hepatic encephalopathy (HCC) Take 45 mL by mouth in the morning and 45 mL at noon and 45 mL before bedtime. 4050 mL 1 5 Active Insulin Glargine Solostar 100 UNIT/ML Subcutaneous Solution Pen-injector (Lantus SoloStar) Inject 10 Units under the skin daily. 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 Type 2 diabetes mellitus wit h hemoglobin A1c goal of less than 7.0% 02/26/2010 Overview (02/23/2016): HGBA1C 7.5 ICD-10 update of inactive term Family history of colon cancer Diverticulosis of colon Hyperlipidemia with target LDL less than 100 Overview (02/29/2016): ICD-10 update of inactive term documented as of this encounter (statuses as of 11/18/2024) Resolved Problems Problem Noted Date Diagnosed Date Resolved Date Idiopathic gout 04/29/2016 10/05/2017 Obesity, Class II, BMI 35-39 .9, isolated (see actual BMI) 01/25/2010 09/01/2011 Overview (01/25/2010): Per Obesity Taxonomy Metabolic syndrome 11/04/2009 4 Other abnormal glucose 11/04/200902/24 Overview (02/26/2010): glucose 192 HTN, goal below 140/90 09/04/200903/01 Overview (09/04/2009): Modified per HTN Taxonomy. Gout 05/06/2003 09/29/2016 HTN, goal below 140/90 09/04 Overview (09/04/2009): Modified per HTN Taxonomy. Obesity, BMI not known 01/25 Overview (01/25/2010): Per Obesity Taxonomy Abdominal pain 03/01/2010 HTN, goal below 130/80 06/21 Other acute rheumatic heart disease 02/24/2011 Overview (03/22/2010): was on pcn for 11 years. 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 Not on file Not on file Not on file [employer] Not on file Not on file Not on file documented as of this encounter Miscellaneous Notes * Telephone Encounter - Ren Pineda CRNP - 11/18/2024 9:04 AM EST MELD 3.0: 20 at 10/18/2024 10:51 AM MELD-Na: 20 at 10/18/2024 10:51 AM Calculated from: Serum Creatinine: 1 mg/dL at 10/18/2024 10:51 AM Serum Sodium: 133 mmol/L at 10/18/2024 10:51 AM Total Bilirubin: 3.8 mg/dL at 10/18/2024 10:51 AM Serum Albumin: 3 g/dL at 10/18/2024 10:51 AM INR(ratio): 1.7 at 10/18/2024 10:51 AM Age at listing (hypothetical): 59 years Sex: Male at 10/18/2024 10:51 AM Added to multi-disciplinary liver board meeting (tumor board) agenda for 12/04/24 * Telephone Encounter - Ren Pineda CRNP - 11/15/2024 11:19 AM EST Discussed MRI results w pt. Question of HCC, two suspicious lesions. Message to medical office coordinator and Admin assist. Will present at next tumor board for disposition. Pt still needs an echo for pretransplant eval for murmur. Pt tells me his missed appt for ech and card f/u appt due to hospitalization. Message to cardiology asking them to reschedule the pt or just reschedule the echo. documented in this encounter Plan of Treatment Upcoming Encounters Date Type Department Care Team (Late st Contact Info) Description 12/26/2024 9:00 AM EST Office Visit Pharmacy, [address] [place] [phone] [place] [address] 03/31/2025 4:00 PM EDT Office Visit Nephrology, [facility] [address] [place] [address] [address] Fernando Reina MD [address] [place] [address] [place] [address] 04/18/2025 10:30 AM EDT [facility] [address] [address] [address] Ren Pineda CRNP [address] [place] [address] 06/02/2025 10:00 AM EDT Office Visit Family Medicine [address] [place] [phone] Krystian Palomo MD [address] [place] [address] [place] [address] 09/11/2025 2:00 PM EST Imaging Radiology [address] [place] [address] Scheduled Procedures Name Priority Associated Diagnoses Date/Ti me ESOPHAGOGASTRODUODENOSCOPY ( EGD), FLEXIBLE, TRANSORAL, DIAGNOSTIC Recall Portal hypertensive gastropathy (HCC) COLONOSCOPY FLEXIBLE PROXIMAL DIAGNOSTIC Recall Family history of colon cancer Health Maintenance Due Date Last Done Comments Cologuard 2009 Sigmoidoscopy 2009 Fecal Occult Blood Test 02/26/2011 02/26/2010 Zoster Vaccines (1 of 2) 2014 Pneumococcal Vaccine: 50+ Years (2 of 2 - PCV) 12/24/2014 12/24/2013 DTap/Tdap Vaccines (2 - Td or Tdap) [...] 04/19/2024, 03/0 05/2024, 09/18/2023, Additional history exists Depression Screening 09/09/2025 09/09/2024 GFR 11/06/2025 11/06/2024, 09/30, 09/30/2024, Additional history exists Lipid Panel 09/18/2028 09/18/2023, [...] this encounter Medical Devices Implanted Type Area Compliance Monitor Device Identifier Shelf Expiration Date Model / Serial / Lot Lipiodol Injection - [id number] Implanted:Qty: 1 on 08/02/2023 at [facility] [employer] 04/28/2026 56313-17 [id number] Syr Pf 2ml Embospheres 100-300 - [id number] Implanted:Qty: 1 on 08/02/2023 at [facility] [employer] [id number] 02/26/2026 S220GH / / [id number] Syr Pf 2ml Embospheres 100-300 - [id number] Implanted:Qty: 1 on 04/11/2024 at [facility] [employer] [id number] 12/27/2026 S220GH / / [id number] Lipiodol Injection - [id number] Implanted:Qty: 1 on 04/11/2024 at [facility] [employer] 10333-68 documented as of this encounter Care Teams Supervisor Denture Department Relationship Specialty Start Date End Date Krystian Palomo MD [address] [place] [address] [place] [phone] PCP - General Family Medicine 12/22/23 documented as of this encounter
--- OUTSIDE RECORDS SUMMARY | 2024-11-29 06:52 | External Medical Summary | Summary of Care ---
Author Name Unknown Organization [facility] Address [address] [facility] [place] [address] Phone [phone] Care Team Providers Care Track Hoe Operator Name Role Phone Krystian Palomo MD Primary Care Provide r Reason for Visit * Reason Onset Date Comments Test Results Imaging Study 11/15/2024 Encounter Details Date Type Department Care Team (Late st Contact Info) Description 11/15/2024 Telephone Gastroenterology, [facility] [address] [place] [address] Ren Pineda CRNP [address] [place] [address] Test Results Imaging Study Allergies Active Allergy [...] 07/05/2023 Hepatic encephalopathy 03/28/2022 Overview (12/06/2022): admitted [facility], ammonia 110 Aortic stenosis, moderate [...] file Not on file Not 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 Message given. He is going to [facility] on 11/19/2024 for paracentesis. Orders faxed to Chely at [facility] * Addendum Note - Ren Pineda CRNP - 11/18/2024 9:18 AM ESTAddended by: REN PINEDA on: 11/18/2024 09:18 AM Modules accepted: Orders * Telephone Encounter - Ren Pineda CRNP - 11/18/2024 9:14 AM EST AFP, MELD labs ordered. I left a message on his cell asking him to get these drawn this week. These are needed prior to presenting him to tumor board on 12/04/24. * Telephone Encounter - Ren Pineda CRNP [...] of HCC, two suspicious lesions. Message to hospice care transitions coordinator and Admin assist. Will present at [...] 12/26/2024 9:00 AM EST Office Visit Pharmacy, [address] [place] [address] [place] [address] 03/31/2025 4:00 PM EDT Office Visit Nephrology, [facility] [address] [place] [address] Fernando Reina MD [address] [place] [address] 04/18/2025 10:30 AM EDT Office Visit Gastroenterology, [facility] [address] [place] [address] Ren Pineda CRNP [address] [place] [address] 06/02/2025 10:00 AM EDT Office Visit Family Medicine [address] [place] [phone] Krystian Palomo MD [address] [place] [address] [place] [address] 09/11/2025 2:00 PM EST Imaging Radiology [address] [place] [address] Scheduled Orders Name Type Priority Associated Diagnoses Orde r Schedule ALPHA-FETOPROTEIN TUMOR MARKER Lab Routine 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) Expected: 11/19/2024, Expires: 11/18/2025 COMPREHENSIVE METABOLIC PANEL Lab Routine 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) Expected: 11/19/2024, Expires: 11/18/2025 PT INR Lab Routine 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) Expected: 11/19/2024, Expires: 11/18/2025 Scheduled Procedures Name Priority Associated Diagnoses Date/Ti [...] this encounter Medical Devices Implanted Type Area Phone Circuit Operator Device Identifier Shelf Expiration Date Model / Serial / Lot Lipiodol Injection - [id number] Implanted:Qty: 1 on 08/02/2023 at [facility] [employer] 04/28/2026 [id number] Syr Pf 2ml Embospheres 100-300 - [id number] Implanted:Qty: 1 on 08/02/2023 at [facility] [employer] [id number] 02/26/2026 S220GH / / [id number] Syr Pf 2ml Embospheres 100-300 - [id number] Implanted:Qty: 1 on 04/11/2024 at [facility] [employer] [id number] 12/27/2026 S220GH / / [id number] Lipiodol Injection - [id number] Implanted:Qty: 1 on 04/11/2024 at [facility] [employer] [id number] documented as of this encounter Visit Diagnoses Diagnosis 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)- Primary documented in this encounter Care Teams Track Hoe Operator Relationship Specialty Start Date End Date Krystian Palomo MD [address] [place] [address] [place] [phone] PCP - General Family Medicine 12/22/23 documented as of this encounter
--- OUTSIDE RECORDS SUMMARY | 2024-11-29 06:52 | External Medical Summary | Summary of Care ---
Author Name Unknown Organization [facility] Address [address] [facility] [place] [address] Phone [phone] Care Team Providers Care Inspector Circuitry Negative Name Role Phone Krystian Palomo MD Primary Care Provide r Reason for Visit * Reason Onset Date Comments Test Results Imaging Study 11/15/2024 Encounter Details Date Type Department Care Team (Late st Contact Info) Description 11/15/2024 Telephone Gastroenterology, [facility] [address] [place] [address] Ren Pineda CRNP [address] [place] [address] Test Results Imaging Study Allergies Active Allergy [...] 07/05/2023 Hepatic encephalopathy 03/28/2022 Overview (12/06/2022): admitted [facility], ammonia 110 [...] file Not on file Not on file 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 Message to hall coordinator and Admin assist. Will present at [...] 12/26/2024 9:00 AM EST Office Visit Pharmacy, [address] [place] [address] [place] [address] 03/31/2025 4:00 PM EDT Office Visit Nephrology, [facility] [address] [place] [address] Fernando Reina MD [address] [place] [address] 04/18/2025 10:30 AM EDT Office Visit Gastroenterology, [facility] [address] [place] [address] Ren Pineda CRNP [address] [place] [address] 06/02/2025 10:00 AM EDT Office Visit Family Medicine [address] [place] [phone] Krystian Palomo MD [address] [place] [address] [place] [address] 09/11/2025 2:00 PM EST Imaging Radiology [address] [place] [address] Scheduled Orders Name Type Priority Associated Diagnoses [...] this encounter Medical Devices Implanted Type Area Branch Logistics Supervisor Device Identifier Shelf Expiration Date Model / Serial / Lot Lipiodol Injection - [id number] Implanted:Qty: 1 on 08/02/2023 at [facility] [employer] 04/28/2026 [id number] -[id number] / / [id number] Syr Pf 2ml Embospheres 100-300 - [id number] Implanted:Qty: 1 on 08/02/2023 at [facility] [employer] [facility] [id number] 02/26/2026 S220GH / / [id number] Syr Pf 2ml Embospheres 100-300 - [id number] Implanted:Qty: 1 on 04/11/2024 at [facility] [employer] [id number] 12/27/2026 S220GH / / [id number] Lipiodol Injection - [id number] Implanted:Qty: 1 on 04/11/2024 at [facility] [employer] [facility] [address]-66 documented as of this encounter Visit Diagnoses Diagnosis 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
--- OUTSIDE RECORDS SUMMARY | 2024-11-29 06:52 | External Medical Summary | Summary of Care ---
Author Name Unknown Organization [facility] Address [address] [facility] [address] Phone [phone] Care Team Providers Care Photographic Equipment Assembler Name Role Phone Krystian Palomo MD Primary Care Provide r Encounter Details Date Type Department Care Team (Late st Contact Info) Description 11/19/2024 Result Scan Unspecified Department Ren Pineda CRNP [address] [place] [address] <No scans attached> Allergies Active Allergy Reactions Criticality Noted Date Comments Aspirin 01/28/2022 Other reaction(s): bloody nose Salicylates 08/08/2001 nose bleeds documented as of this encounter (statuses as of 11/20/2024) Medications Multivitamin Adult Oral Tablet daily . 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 Not on file Not on file documented as of this encounter Plan of Treatment Upcoming Encounters Date Type Department Care Team (Late st Contact Info) Description 11/26/2024 12:00 PM EST Imaging [facility] 2nd Floor Cardiology, [place] [address] [place] [phone] Gw, Excess Time Radiology [address] [place] [address] 12/26/2024 9:00 AM EST Office Visit Pharmacy, [address] [place] [address] [place] [address] 03/20/2025 10:30 AM EDT Office Visit Cardiology, [facility] 132 [facility] [place] [address] Chino Carrillo PA-C 132 [facility] [place] [address] 03/31/2025 4:00 PM EDT Office Visit Nephrology, [facility] [address] [place] [address] Fernando Reina MD [address] [place] [address] 04/18/2025 10:30 AM EDT Office Visit Gastroenterology, [facility] [place] [address] Ren Pineda CRNP 132 [facility] [place] [address] 06/02/2025 10:00 AM EDT Office Visit Family Medicine [address] [place] [phone] Krystian Palomo MD [address] [place] [address] [place] [address] 09/11/2025 2:00 PM EST Imaging Radiology [address] [place] [address] Scheduled Procedures Name Priority Associated Diagnoses Date/Ti [...] exists Depression Screening 09/09/2025 09/09/2024 GFR 11/06/2025 11/19/2024, 01/0 05/2025, 10/18/2024, Additional history exists Lipid Panel 09/18/2028 09/18/2023, [...] this encounter Medical Devices Implanted Type Area Search Engine Marketing Specialist Device Identifier Shelf Expiration Date Model / Serial / Lot Lipiodol Injection - [id number] Implanted:Qty: 1 on 08/02/2023 at [employer] [facility] 04/28/2026 67137-01 [id number] Syr Pf 2ml Embospheres 100-300 - [id number] Implanted:Qty: 1 on 08/02/2023 at [facility] [employer] [id number] 02/26/2026 S220GH / / [id number] Syr Pf 2ml Embospheres 100-300 - [id number] Implanted:Qty: 1 on 04/11/2024 at [facility] [employer] [id number] 12/27/2026 S220GH / / [id number] Lipiodol Injection - [id number] Implanted:Qty: 1 on 04/11/2024 at [facility] [address] documented as of this encounter Procedures Procedure Name Priority Date/Time Associated Diagnosis Comments RADIOLOGY SCANNED RESULT 11/19/2024 documented in this encounter Results * RADIOLOGY SCANNED RESULT (11/19/2024) 11/19/2024 us Ren BALDERRAMA DIAGNOSTIC RADIOLOGY SERVI SOHAIL Final Result documented in this encounter Care Teams Photographic Equipment Assembler Relationship Specialty Start Date End Date Krystian Palomo MD [address] [place] [address] [place] [address] PCP - General Family Medicine 12/22/23 documented as of this encounter
--- OUTSIDE RECORDS SUMMARY | 2024-11-29 06:52 | External Medical Summary | Summary of Care ---
Author Name Unknown Organization [facility] Address [address] [facility] [address] [facility] [address] Phone [phone] Care Team Providers Care Sampler Tester Name Role Phone Krystian Palomo MD Primary Care Provide r Reason for Visit * Reason Onset Date Comments Medication Refill 11/22/2024 Encounter Details Date Type Department Care Team (Late st Contact Info) Description 11/22/2024 Refill Pharmacy, [address] [place] [address] Krystian Palomo MD [address] [place] [address] [place] [address] Allergies Active Allergy Reactions Criticality Noted Date Comments Aspirin 01/28/2022 Other reaction(s): bloody nose Salicylates 08/08/2001 nose bleeds documented as of this encounter (statuses as of 11/25/2024) Medications Multivitamin Adult Oral Tablet daily . 10/12/20 21 Active Vitamin C 1000 MG Oral Tablet daily . 10/12/20 21 Active Atorvastatin Calcium 20 MG Oral Tablet (Lipitor)Indication s:Hyperlipidemia with target LDL less than 100 Take 1 Tablet by mouth in the morning. 90 Tablet 1 07/11/20 23 Active Probiotic & Acidophilus Ex St Oral Capsule Take 1 Capsule by mouth in the morning and 1 Capsule at noon and 1 Capsule in the evening. Take with meals. Active rifAXIMin 550 MG Oral Tablet (Xifaxan)Indication s: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) TAKE ONE TABLET BY MOUTH EVERY MORNING AND ONE TABLET AT BEDTIME 60 Tablet 12 07/04/20 24 Active Sodium Chloride 1 GM Oral Tablet Take 1 Tablet by mouth in the morning and 1 Tablet before bedtime. 06/28/20 24 Active Docusate Sodium 100 MG Oral Capsule (Colace) Take 1 Capsule by mouth in the morning and 1 Capsule before bedtime. Active OneTouch Verio In Vitro Strip (Glucose Blood) Use to check blood sugars up to three times daily DxE11.9 300 Strip 3 08/07/20 24 Active MagDelay 64 MG Oral Tablet Delayed Release Take 1 Tablet by mouth in the morning. 09/02/20 24 Active Midodrine HCl 2.5 MG Oral Tablet (Proamatine)Indicat ions:at hosp d/c 09.7.24 Take 3 Tablets by mouth in the morning and 3 Tablets at noon and 3 Tablets in the evening. 09/04/20 24 Active Torsemide 20 MG Oral Tablet (Demadex) Take 1 Tablet by mouth in the morning. Active Dexcom G7 Sensor Use as directed every 10 days. DxE11.9 3 Each 3 10/29/20 24 Active Omeprazole 20 MG Oral Capsule Delayed Release (PriLOSEC)Indicatio ns:GERD (gastroesophageal reflux disease) Take 1 Capsule by mouth in the morning. 1 hour before the first meal of the day. 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 In the morning.. 90 Tablet 1 11/09/19 25 Active Tamsulosin HCl 0.4 MG Oral Capsule (Flomax)Indications :Urinary retention TAKE ONE CAPSULE BY MOUTH EVERY DAY 90 Capsule 1 11/09/19 25 Active Mupirocin 2 % External Ointment (Bactroban) Apply topically to affected area 3 times a day. At hospital discharge 22 g 11/11/19 25 Active Lactulose 10 GM/15ML Oral Solution (Constulose)Indicat ions:Hepatic encephalopathy (HCC) Take 45 mL by mouth in the morning and 45 mL at noon and 45 mL before bedtime. 4050 mL 11/11/19 25 Active Potassium Chloride [facility] 10 MEQ Oral Tablet Extended ReleaseIndications: Low serum potassium Take 2 Tablets by mouth in the morning and 2 Tablets at noon and 2 Tablets before bedtime. 180 Tablet 1 11/21/19 25 Active Insulin Glargine Solostar 100 UNIT/ML Subcutaneous Solution Pen-injector (Lantus SoloStar) Inject 10 Units under the skin daily. 15 mL 3 11/25/19 25 Active Insulin Glargine Solostar 100 UNIT/ML Subcutaneous Solution Pen-injector (Lantus SoloStar) Inject 10 Units under the skin daily. 15 mL 3 11/12/19 25 025 Discontin ued(Refil l) documented as of this encounter (statuses as of 11/25/2024) Active Problems Problem Noted Date Diagnosed Date BPH without obstruction/lower urinary tract symp toms 12/22/2023 BMI 36.0-36.9,adult 10/24/2023 Overview (10/24/2023): 266 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 07/05/2023 Hepatic encephalopathy 03/28/2022 Overview (12/06/2022): admitted [facility], ammonia 110 Aortic stenosis, [...] as of this encounter (statuses as of 11/25/2024) Resolved Problems Problem Noted Date Diagnosed Date [...] as of this encounter (statuses as of 11/25/2024) Immunizations Name Administration Dates Next Due COVID-19 [...] file Not on file 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 Authorizing Provider: KRYSTIAN PALOMO User: DOLLY TYLER * Telephone Encounter - Provider, Patient Portal - 11/22/2024 5:22 PM ESTPending Prescriptions: Disp Refills Insulin Glargine Solostar 100 UNIT/ML Subc*15 mL 3 Sig: Inject 10 Units under the skin daily. documented in this encounter Plan of Treatment Upcoming Encounters Date Type Department Care Team (Late st Contact Info) Description 11/26/2024 12:00 PM EST Imaging [facility] Cardiology, [place] [address] [place] [phone] , Excess Time Radiology [address] [place] [address] 12/26/2024 9:00 AM EST Office Visit Pharmacy, [address] [place] [address] [place] [address] 03/20/2025 10:30 AM EDT Office Visit Cardiology, [facility] [address] [place] [address] Chino Crarillo PA-C [address] [place] [address] 03/31/2025 4:00 PM EDT Office Visit Nephrology, [facility] [address] [place] [address] Fernando Reina MD [address] [place] [address] 04/18/2025 10:30 AM EDT Office Visit Gastroenterology, [facility] [address] [place] [address] Ren Pineda CRNP [address] [place] [address] 06/02/2025 10:00 AM EDT Office Visit Family Medicine [address] [place] [address] Krystian Palomo MD [address] [place] [address] [place] [address] 09/11/2025 2:00 PM EST Imaging Radiology [address] [place] [address] Scheduled Procedures Name Priority Associated Diagnoses Date/Ti [...] history exists Depression Screening 09/09/2025 09/09/2024 GFR 11/19/2025 11/19/2024, 01/0 05/2025, 10/18/2024, Additional history exists [...] this encounter Medical Devices Implanted Type Area Electrical Power Engineer Device Identifier Shelf Expiration Date Model / Serial / Lot Lipiodol Injection - [id number] Implanted:Qty: 1 on 08/02/2023 at [facility] [employer] 04/28/2026 15604-89 [id number] Syr Pf 2ml Embospheres 100-300 - [id number] Implanted:Qty: 1 on 08/02/2023 at [facility] [employer] [id number] 02/26/2026 S220GH / / [id number] Syr Pf 2ml Embospheres 100-300 - [id number] Implanted:Qty: 1 on 04/11/2024 at [facility] [employer] [id number] 12/27/2026 S220GH / / [id number] Lipiodol Injection - [id number] Implanted:Qty: 1 on 04/11/2024 at [facility] [employer] [id number] documented as of this encounter Care Teams Sampler Tester Relationship Specialty Start Date End Date Krystian Palomo MD [address] [place] [address] [place] [phone] PCP - General Family Medicine 12/22/23 documented as of this encounter
--- OUTSIDE RECORDS SUMMARY | 2024-11-29 06:52 | External Medical Summary | Summary of Care ---
Author Name Unknown Organization [facility] Address [address] [facility] [place] [address] Phone [phone] Care Team Providers Care Mental Health Program Specialist Name Role Phone Krystian Palomo MD Primary Care Provide r Encounter Details Date Type Department Care Team (Late st Contact Info) Description 11/20/2024 Orders Only Gastroenterology, [facility] [address] [place] [address] Ren Pineda CRNP [address] [place] [address] Allergies Active Allergy Reactions Criticality Noted Date [...] 07/05/2023 Hepatic encephalopathy 03/28/2022 Overview (12/06/2022): admitted [facility], ammonia 110 Aortic stenosis, moderate [...] file Not on file 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 Not on file Not on file documented as of this encounter Plan of Treatment Upcoming Encounters Date Type Department Care Team (Late st Contact Info) Description 11/26/2024 12:00 PM EST Imaging [facility] 2nd Floor Cardiology, [place] [address] [place] [phone] Gw, Excess Time Radiology [address] [place] [address] 12/26/2024 9:00 AM EST Office Visit Pharmacy, [address] [place] [address] [place] [address] 03/20/2025 10:30 AM EDT Office Visit Cardiology, [facility] 132 [facility] [place] [address] Chino Carrillo PA-C [facility] [place] [address] 03/31/2025 4:00 PM EDT Office Visit Nephrology, [facility] [address] [place] [address] Fernando Reina MD [address] [place] [address] 04/18/2025 10:30 AM EDT Office Visit Gastroenterology, [facility] 132 [facility] [place] [address] Ren Pineda CRNP 132 [facility] [place] [address] 06/02/2025 10:00 AM EDT Office Visit Family Medicine [address] [place] [phone] Krystian Palomo MD [address] [place] [address] [place] [address] 09/11/2025 2:00 PM EST Imaging Radiology [address] [place] [address] Scheduled Procedures Name Priority Associated Diagnoses Date/Ti [...] encounter Medical Devices Implanted Type Area Director Inpatient Headache Program Device Identifier Shelf Expiration Date Model / Serial / Lot Lipiodol Injection - [id number] Implanted:Qty: 1 on 08/02/2023 at [facility] [employer] 04/28/2026 36205-23 [id number] Syr Pf 2ml Embospheres 100-300 - [id number] Implanted:Qty: 1 on 08/02/2023 at [facility] [employer] [id number] 02/26/2026 S220GH / / [id number] Syr Pf 2ml Embospheres 100-300 - [id number] Implanted:Qty: 1 on 04/11/2024 at [facility] [employer] [id number] 12/27/2026 S220GH / / [id number] Lipiodol Injection - [id number] Implanted:Qty: 1 on 04/11/2024 at [facility] [employer] [address]27[address]-82 documented as of this encounter Procedures Procedure Name Priority Date/Time Associated Diagnosis Comments CHEMISTRY-OUTSIDE Routine 11/19/2024 documented in this encounter Results * (ABNORMAL) CHEMISTRY-OUTSIDE (11/19/2024) Not all results display below - see scan for full detail OUTSIDE LAB (SEE SCANNED REPORT) Comment:SCAN INCLUDES - CMP, PT INR, PERIT, CC/DIFF, GRAM STAIN CREATININE 0.87 0.6 - 1.4 MG/DL OUTSIDE LAB (SEE SCANNED REPORT) EGFR 98.78 OUTSIDE LA B (SEE SCANNED REPORT) POTASSIUM 2.6(A) 3.5 - 5.1 MMOL/L OUTSIDE LAB (SEE SCANNED REPORT) GLUCOSE 159(A) 70 - 99 MG/DL OUTSIDE LAB (SEE [...] LAB OUTSIDE LAB (SEE SCANNED REPORT) HEMOGLOBIN, A1C-GNRFTGK LAB OUTSIDE LAB (SEE SCANNED REPORT) PHOSPHORUS-OUTSID E LAB OUTSIDE LAB (SEE SCANNED REPORT) PTH-OUTSIDE LAB OUTS LESLIE LAB (SEE SCANNED REPORT) MICROALBUMIN RATIO-OUTSIDE LAB OUTSIDE LA B (SEE SCANNED REPORT) PROTEIN, UA-OUTSIDE LAB OUTSIDE LAB (SEE SCANNED REPORT) HGB OUTSIDE LA B (SEE SCANNED REPORT) 11/19/2024 us Ren BALDERRAMA [facility] Final Resu lt OUTSIDE LAB (SEE SCANNED REPORT) documented in this encounter Care Teams Mental Health Program Specialist Relationship Specialty Start Date End Date Krystian Palomo MD [address] [place] [address] [place] [phone] PCP - General Family Medicine 12/22/23 documented as of this encounter
--- OUTSIDE RECORDS SUMMARY | 2024-11-29 06:53 | External Medical Summary | Summary of Care ---
Author Name Unknown Organization [facility] Address [address] [facility] [place] [address] Phone [phone] Care Team Providers Care Land Conservation Specialist Name Role Phone Krystian Palomo MD Primary Care Provide r Reason for Visit * Reason Onset Date Comments Medication Refill 11/08/2024 Encounter Details Date Type Department Care Team (Late st Contact Info) Description 11/08/2024 Refill Gastroenterology, [facility] 132 [facility] [place] [address] Stanford Mays MD [address] [place] [address] [place] [address] Hyperlipidemia with target LDL less than 100 Allergies Active Allergy Reactions Criticality Noted Date Comments Aspirin 01/28/2022 Other reaction(s): bloody nose Salicylates 08/08/2001 nose bleeds documented as of this encounter (statuses as of 11/11/2024) Medications Multivitamin Adult Oral Tablet daily . [...] before bedtime. 4050 mL 1 5 Active documented as of this encounter (statuses as of 11/11/2024) Active Problems Problem Noted Date Diagnosed Date BPH without obstruction/lower urinary tract symp toms 12/22/2023 BMI 36.0-36.9,adult 10/24/2023 Overview (10/24/2023): 266 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 07/05/2023 Hepatic encephalopathy 03/28/2022 Overview (12/06/2022): admitted [facility], ammonia 110 Aortic stenosis, moderate [...] as of this encounter (statuses as of 11/11/2024) Resolved Problems Problem Noted Date Diagnosed Date [...] as of this encounter (statuses as of 11/11/2024) Immunizations Name Administration Dates Next Due COVID-19 [...] file Not on file 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 Not on file Not on file documented as of this encounter Miscellaneous Notes * Telephone Encounter - Ana Malcolm LPN - 11/11/2024 8:18 AM ESTRefused Prescriptions: Disp Refills Atorvastatin Calcium 20 MG Oral Tablet (Li*90 Tab*1 Sig: Take 1Tablet by mouth in the morning.Refused By: Sagar MALCOLM for Refusal: Managed by another physi madai documented in this encounter Plan of Treatment Upcoming Encounters Date Type Department Care Team (Late st Contact Info) Description 11/14/2024 12:30 PM EST Imaging Radiology [address] [place] [phone] 12/26/2024 9:00 AM EST Office Visit Pharmacy, [address] [place] [address] [place] [address] 03/31/2025 4:00 PM EDT Office Visit Nephrology, [facility] [address] [place] [address] Fernando Reina MD [address] [place] [address] 04/18/2025 10:30 AM EDT Office Visit Gastroenterology, [facility] [address] [place] [address] Ren Pineda CRNP [address] [place] [address] 06/02/2025 10:00 AM EDT Office Visit Family Medicine [address] [place] [address] Krystian Palomo MD [address] [place] [address] [place] [address] 09/11/2025 2:00 PM EST Imaging Radiology [address] [place] [address] Scheduled Procedures Name Priority Associated Diagnoses Date/Ti [...] this encounter Medical Devices Implanted Type Area Forensic Accountant Device Identifier Shelf Expiration Date Model / Serial / Lot Lipiodol Injection - [id number] Implanted:Qty: 1 on 08/02/2023 at [facility] [employer] 04/28/2026 70568-19 - [id number] Syr Pf 2ml Embospheres 100-300 - [id number] Implanted:Qty: 1 on 08/02/2023 at [facility] [employer] [id number] 02/26/2026 S220GH / / [id number] Syr Pf 2ml Embospheres 100-300 - [id number] Implanted:Qty: 1 on 04/11/2024 at [facility] [employer] [id number] 12/27/2026 S220GH / / [id number] Lipiodol Injection - [id number] Implanted:Qty: 1 on 04/11/2024 at [facility] [employer] [address] documented as of this encounter Visit Diagnoses Diagnosis Hyperlipidemia with target LDL less than 100 Other and unspecified hyperlipidemia documented in this encounter Care Teams Land Conservation Specialist Relationship Specialty Start Date End Date Krystian Palomo MD [address] [place] [address] [place] [phone] PCP - General Family Medicine 12/22/23 documented as of this encounter
--- OUTSIDE RECORDS SUMMARY | 2024-11-29 06:53 | External Medical Summary | Summary of Care ---
Author Name Unknown Organization [facility] Address [address] [facility] [place] [address] Phone [phone] Care Team Providers Care Telemetry Nurse Name Role Phone Krystian Palomo MD Primary Care Provide r Encounter Details Date Type Department Care Team (Late st Contact Info) Description 09/20/2024 Telephone Otolaryngology [facility] [address] [employer] [address] [place] [address] Sheila Tirado MD [address] [place] [address] Allergies Active Allergy Reactions Criticality Noted Date Comments Aspirin 01/28/2022 Other reaction(s): bloody nose Salicylates 08/08/2001 nose bleeds documented as of this encounter (statuses as of 11/15/2024) Medications Multivitamin Adult Oral Tablet daily . 021 Active Vitamin C 1000 MG Oral Tablet daily . 021 Active Atorvastatin Calcium 20 MG Oral Tablet (Lipitor)Indicatio ns:Hyperlipidemia with target LDL less than 100 Take 1 Tablet by mouth in the morning. 90 Tablet 1 023 Active Probiotic & Acidophilus Ex St Oral Capsule Take 1 Capsule by mouth in the morning and 1 Capsule at noon and 1 Capsule in the evening. Take with meals. Active rifAXIMin 550 MG Oral Tablet (Xifaxan)Indicatio ns: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) TAKE ONE TABLET BY MOUTH EVERY MORNING AND ONE TABLET AT BEDTIME 60 Tablet 12 Active Sodium Chloride 1 GM Oral Tablet Take 1 Tablet by mouth in the morning and 1 Tablet before bedtime. Active Docusate Sodium 100 MG Oral Capsule (Colace) Take 1 Capsule by mouth in the morning and 1 Capsule before bedtime. Active OneTouch Verio In Vitro Strip (Glucose Blood) Use to check blood sugars up to three times daily DxE11.9 300 Strip 3 Active MagDelay 64 MG Oral Tablet Delayed Release Take 1 Tablet by mouth in the morning. Active Midodrine HCl 2.5 MG Oral Tablet (Proamatine)Indica tions:at hosp d/c 09.7.24 Take 3 Tablets by mouth in the morning and 3 Tablets at noon and 3 Tablets in the evening. Active Potassium Chloride Maryam ER 10 MEQ Oral Tablet Extended Release Take 2 Tablets by mouth in the morning and 2 Tablets at noon and 2 Tablets before bedtime. Active Insulin Glargine Solostar 100 UNIT/ML Subcutaneous Solution Pen-injector (Lantus SoloStar) Inject 10 Units under the skin daily. 15 mL 3 024 2024 Discontinued(R efill) Omeprazole 20 MG Oral Capsule Delayed Release (PriLOSEC)Indicati ons:GERD (gastroesophageal reflux disease) Take 1 Capsule by mouth in the morning. 1 hour before the first meal of the day. 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 In the morning.. 90 Tablet 1 024 2024 Discontinued(R efill) Tamsulosin HCl 0.4 MG Oral Capsule (Flomax)Indication s:Urinary retention TAKE ONE CAPSULE BY MOUTH EVERY DAY 90 Capsule 1 024 2024 Discontinued(R efill) Mupirocin 2 % External Ointment (Bactroban) Apply topically to affected area 3 times a day. At hospital discharge 22 g 1 024 2023 Discontinued Torsemide 20 MG Oral Tablet (Demadex)Indicatio ns:decreased from 40 at hosp d/c 09.7.24 Take 1 Tablet by mouth in the morning. 2023 Discontinued Lactulose 10 GM/15ML Oral Solution (Constulose)Indica tions:Hepatic encephalopathy (HCC) Take 45 mL by mouth in the morning and 45 mL at noon and 45 mL before bedtime. 4050 mL 1 024 2023 Discontinued Amoxicillin-Pot Clavulanate 875-125 MG Oral Tablet (Augmentin) 1 Tablet in the morning and 1 Tablet before bedtime. 2023 Discontinued(M edication List Clean Up) Dexcom G7 Sensor Use as directed every 10 days. DxE11.9 3 Each 3 2023 Discontinued(R efill) documented as of this encounter (statuses as of 11/15/2024) Active Problems Problem Noted Date Diagnosed Date BPH without obstruction/lower urinary tract symp toms 12/22/2023 BMI 36.0-36.9,adult 10/24/2023 Overview (10/24/2023): 266 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 07/05/2023 Hepatic encephalopathy 03/28/2022 Overview (12/06/2022): admitted [facility], ammonia 110 Aortic [...] as of this encounter (statuses as of 11/15/2024) Resolved Problems Problem Noted Date Diagnosed Date [...] as of this encounter (statuses as of 11/15/2024) Immunizations Name Administration Dates Next Due COVID-19 [...] file Not on file Not on file 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 documented in this encounter Plan of Treatment Upcoming Encounters Date Type Department Care Team (Late st Contact Info) Description 12/26/2024 9:00 AM EST Office Visit Pharmacy, [address] [place] [address] [place] [address] 03/31/2025 4:00 PM EDT Office Visit Nephrology, [facility] 200 [facility] [place] [address] Fernando Reina MD [address] [place] [address] 04/18/2025 10:30 AM EDT Office Visit Gastroenterology, [facility] [address] [place] [address] Ren Pineda CRNP [address] [place] [address] 06/02/2025 10:00 AM EDT Office Visit Family Medicine [address] [place] [phone] Krystian Palomo MD [address] [place] [address] [place] [address] 09/11/2025 2:00 PM EST Imaging Radiology [address] [place] [address] Scheduled Procedures Name Priority Associated Diagnoses Date/Ti [...] this encounter Medical Devices Implanted Type Area Oliver Filter Operator Device Identifier Shelf Expiration Date Model / Serial / Lot Lipiodol Injection - [id number] Implanted:Qty: 1 on 08/02/2023 at [facility] [employer] 04/28/2026 [id number] Syr Pf 2ml Embospheres 100-300 - [id number] Implanted:Qty: 1 on 08/02/2023 at [facility] [employer] [id number] 02/26/2026 S220GH / / [id number] Syr Pf 2ml Embospheres 100-300 - [id number] Implanted:Qty: 1 on 04/11/2024 at [facility] [employer] [id number] 12/27/2026 S220GH / / [id number] Lipiodol Injection - [id number] Implanted:Qty: 1 on 04/11/2024 at [facility] [employer] [id number] 2 / / documented as of this encounter Care Teams Telemetry Nurse Relationship Specialty Start Date End Date Krystian Palomo MD [address] [place] [address] [place] [address] PCP - General Family Medicine 12/22/23 documented as of this encounter
--- OUTSIDE RECORDS SUMMARY | 2024-11-29 06:53 | External Medical Summary | Summary of Care ---
Author Name Unknown Organization [facility] Address [address] [facility] [place] [address] Phone [phone] Care Team Providers Care Diamond Polisher Name Role Phone Krystian Palomo MD Primary Care Provide r Reason for Visit * Reason Onset Date Comments Test Results Imaging Study 11/15/2024 Encounter Details Date Type Department Care Team (Late st Contact Info) Description 11/15/2024 Telephone Gastroenterology, [facility] [address] [place] [address] Ren Pineda CRNP [address] [place] [address] Test Results Imaging Study Allergies Active Allergy [...] 07/05/2023 Hepatic encephalopathy 03/28/2022 Overview (12/06/2022): admitted [facility], ammonia 110 Aortic stenosis, moderate [...] file Not on file Not on file 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 Question of HCC, two suspicious lesions. Message to retail merchandising coordinator and Admin assist. Will present at [...] 12/26/2024 9:00 AM EST Office Visit Pharmacy, [address] [place] [address] [place] [address] 03/31/2025 4:00 PM EDT Office Visit Nephrology, [facility] [address] [place] [address] Fernando Reina MD [address] [place] [address] 04/18/2025 10:30 AM EDT Office Visit Gastroenterology, [facility] [address] [place] [address] Ren Pineda CRNP [address] [place] [address] 06/02/2025 10:00 AM EDT Office Visit Family Medicine [address] [place] [phone] Krystian Palomo MD [address] [place] [address] [place] [address] 09/11/2025 2:00 PM EST Imaging Radiology [address] [place] [address] Scheduled Procedures Name Priority Associated Diagnoses Date/Ti [...] this encounter Medical Devices Implanted Type Area Quality Assurance Supervisor Chassis Device Identifier Shelf Expiration Date Model / Serial / Lot Lipiodol Injection - [id number] Implanted:Qty: 1 on 08/02/2023 at [facility] [employer] 04/28/2026 [id number] Syr Pf 2ml Embospheres 100-300 - [id number] Implanted:Qty: 1 on 08/02/2023 at [facility] [employer] [id number] 02/26/2026 S220GH / / [id number] Syr Pf 2ml Embospheres 100-300 - [id number] Implanted:Qty: 1 on 04/11/2024 at [facility] [employer] [id number] 12/27/2026 S220GH / / [id number] Lipiodol Injection - [id number] Implanted:Qty: 1 on 04/11/2024 at [facility] [employer] 98248-80 documented as of this encounter Care Teams Diamond Polisher Relationship Specialty Start Date End Date Krystian Palomo MD [address] [place] [address] [place] [phone] PCP - General Family Medicine 12/22/23 documented as of this encounter
--- OUTSIDE RECORDS SUMMARY | 2024-11-29 06:53 | External Medical Summary | Summary of Care ---
Author Name Unknown Organization [facility] Address [address] [facility] [address] Phone [phone] Care Team Providers Care Evening Sitter Name Role Phone Krystian Palomo MD Primary Care Provide r Reason for Visit * Reason Onset Date Comments Medication Refill 11/12/2024 Encounter Details Date Type Department Care Team (Late st Contact Info) Description 11/12/2024 Refill Pharmacy, [address] [place] [address] Krystian Palomo MD [address] [place] [address] [place] [address] Allergies Active Allergy Reactions Criticality Noted Date Comments Aspirin 01/28/2022 Other reaction(s): bloody nose Salicylates 08/08/2001 nose bleeds documented as of this encounter (statuses as of 11/12/2024) Medications Multivitamin Adult Oral Tablet daily . [...] Tablets in the evening. 09/04/20 24 Active Potassium Chloride Maryam ER 10 MEQ Oral Tablet Extended Release Take 2 Tablets by mouth in the morning and 2 Tablets at noon and 2 Tablets before bedtime. 09/04/20 24 Active Torsemide 20 MG Oral [...] the morning. In the morning.. 90 Tablet 11/09/19 25 Active Tamsulosin HCl 0.4 MG Oral Capsule (Flomax)Indications :Urinary retention TAKE ONE CAPSULE BY MOUTH EVERY DAY 90 Capsule 11/09/19 25 Active Mupirocin 2 % External Ointment (Bactroban) Apply topically to affected area 3 times a day. At hospital discharge 22 g 1 11/11/19 25 Active Lactulose 10 GM/15ML Oral Solution (Constulose)Indicat ions:Hepatic encephalopathy (HCC) Take 45 mL by mouth in the morning and 45 mL at noon and 45 mL before bedtime. 4050 mL 1 11/11/19 25 Active Insulin Glargine Solostar 100 UNIT/ML Subcutaneous Solution Pen-injector (Lantus SoloStar) Inject 10 Units under the skin daily. 15 mL 3 11/12/19 25 Active Insulin Glargine Solostar 100 UNIT/ML Subcutaneous Solution Pen-injector (Lantus SoloStar) Inject 10 Units under the skin daily. 15 mL 3 04/19/20 24 025 Discontin ued(Refil l) documented as of this encounter (statuses as of 11/12/2024) Active Problems Problem Noted Date Diagnosed Date BPH without obstruction/lower urinary tract symp toms 12/22/2023 BMI 36.0-36.9,adult 10/24/2023 Overview (10/24/2023): 266 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 07/05/2023 Hepatic encephalopathy 03/28/2022 Overview (12/06/2022): admitted [facility], ammonia 110 Aortic stenosis, moderate 01/21/2022 Thrombocytopenia [...] as of this encounter (statuses as of 11/12/2024) Resolved Problems Problem Noted Date Diagnosed Date [...] as of this encounter (statuses as of 11/12/2024) Immunizations Name Administration Dates Next Due COVID-19 [...] file Not on file 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 on file 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 Not on file Not on file documented as of this encounter Miscellaneous Notes * Telephone Encounter - James Lang [facility] - 11/12/2024 9:40 AM EST Signed Prescriptions: Disp Refills Insulin Glargine Solostar 100 UNIT/ML Subc*15 mL 3 Sig: Inject 10 Units under the skin daily.Authorizing Provider: Umu PALOMO User: JAMES LANG documented in this encounter Plan of Treatment Upcoming Encounters Date Type Department Care Team (Late st Contact Info) Description 11/14/2024 12:30 PM EST Imaging Radiology [address] [place] [phone] 12/26/2024 9:00 AM EST Office Visit Pharmacy, [address] [place] [address] [place] [address] 03/31/2025 4:00 PM EDT Office Visit Nephrology, [facility] 200 [facility] [place] [address] Fernando Reina MD [address] [facility] [place] [address] 04/18/2025 10:30 AM EDT Office Visit Gastroenterology, [facility] 132 [place] [address] Ren Pineda CRNP [address] [place] [address] 06/02/2025 10:00 AM EDT Office Visit Family Medicine [address] [place] [phone] Krystian Palomo MD [address] [place] [address] [place] [address] 09/11/2025 2:00 PM EST Imaging Radiology [address] [place] [address] Scheduled Procedures Name Priority Associated Diagnoses Date/Ti [...] this encounter Medical Devices Implanted Type Area Haulpak Driver Device Identifier Shelf Expiration Date Model / Serial / Lot Lipiodol Injection - [id number] Implanted:Qty: 1 on 08/02/2023 at [facility] [employer] 04/28/2026 19658-12 [id number] Syr Pf 2ml Embospheres 100-300 - [id number] Implanted:Qty: 1 on 08/02/2023 at [facility] [employer] [id number] 02/26/2026 S220GH / / [id number] Syr Pf 2ml Embospheres 100-300 - [id number] Implanted:Qty: 1 on 04/11/2024 at [facility] [employer] [id number] 12/27/2026 S220GH / / [id number] Lipiodol Injection - [id number] Implanted:Qty: 1 on 04/11/2024 at [facility] [employer] [id number] 2 documented as of this encounter Care Teams Evening Sitter Relationship Specialty Start Date End Date Krystian Palomo MD [address] [place] [address] [place] [address] PCP - General Family Medicine 12/22/23 documented as of this encounter
--- OUTSIDE RECORDS SUMMARY | 2024-11-29 06:53 | External Medical Summary | Summary of Care ---
Author Name Unknown Organization [facility] Address [address] [facility] [place] [address] Phone [phone] Care Team Providers Care Can Sealer Name Role Phone Krystian Palomo MD Primary Care Provide r Reason for Visit * Reason Onset Date Comments Medication Refill 11/08/2024 Encounter Details Date Type Department Care Team (Late st Contact Info) Description 11/08/2024 Refill [facility], Jennifer Maguire [address] [place] [address] [place] [address] Krystian Palomo MD [address] [place] [address] [place] [address] Allergies Active Allergy Reactions [...] (01/25/2010): Per Obesity Taxonomy Metabolic syndrome 11/04/2009 04/11/201 4 Other abnormal glucose 11/04/200902/24 Overview (02/26/2010): [...] file Not on file 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 Not on file Not on file documented as of this encounter Miscellaneous Notes * Telephone Encounter - Susana Crenshaw RN - 11/11/2024 8:42 AM ESTRefused Prescriptions: Disp Refills OneTouch Verio In Vitro Strip (Glucose Blo*300 St*3 Sig: Use tocheck blood sugars up to three times daily DxE11.9Refused By: Sagar MALCOLM for Refusal: Managed by another physician * Telephone Encounter - Romy Lipscomb OSA - 11/08/2024 8:24 PM ESTPending Prescriptions: Disp Refills OneTouch Verio In Vitro Strip (Glucose Blo*300 St*3 Sig: Use tocheck blood sugars up to three times daily DxE11.9 documented in this encounter Plan of Treatment Upcoming Encounters Date Type Department Care Team (Late st Contact Info) Description 11/14/2024 12:30 PM EST Imaging Radiology [address] 132 [place] [phone] 12/26/2024 9:00 AM EST Office Visit Pharmacy, [address] [place] [address] [place] [address] 03/31/2025 4:00 PM EDT Office Visit Nephrology, [facility] 200 [facility] [place] [address] Fernando Reina MD 200 [facility] [place] [address] 04/18/2025 10:30 AM EDT Office Visit Gastroenterology, [facility] 132 [place] [address] Ren Pineda CRNP 132 [place] [address] 06/02/2025 10:00 AM EDT Office Visit Family Medicine [address] [place] [phone] Krystian Palomo MD [address] [place] [address] [place] [address] 09/11/2025 2:00 PM EST Imaging Radiology [address] [place] [address] Scheduled Procedures Name Priority Associated Diagnoses Date/Ti [...] this encounter Medical Devices Implanted Type Area Purchasing Internship Device Identifier Shelf Expiration Date Model / Serial / Lot Lipiodol Injection - [id number] Implanted:Qty: 1 on 08/02/2023 at [facility] [email or web address] 04/28/2026 07968-88 [id number] Syr Pf 2ml Embospheres 100-300 - [id number] Implanted:Qty: 1 on 08/02/2023 at [facility] [employer] [id number] 02/26/2026 S220GH / / [id number] Syr Pf 2ml Embospheres 100-300 - [id number] Implanted:Qty: 1 on 04/11/2024 at [facility] [employer] [id number] 12/27/2026 S220GH / / [id number] Lipiodol Injection - [id number] Implanted:Qty: 1 on 04/11/2024 at [facility] [email or web address] [address]24-18 documented as of this encounter Care Teams Can Sealer Relationship Specialty Start Date End Date Krystian Palomo MD [address] [place] [address] [place] [address] PCP - General Family Medicine 12/22/23 documented as of this encounter
--- OUTSIDE RECORDS SUMMARY | 2024-11-29 06:53 | External Medical Summary | Summary of Care ---
Author Name Unknown Organization [facility] Address [address] [facility] [place] [address] Phone [phone] Care Team Providers Care Mortgage Specialist Name Role Phone Krystian Palomo MD Primary Care Provide r Reason for Visit * Reason Onset Date Comments Medication Refill 11/08/2024 Encounter Details Date Type Department Care Team (Late st Contact Info) Description 11/08/2024 Refill Family Medicine [address] [phone] Krystian Palomo MD [address] [place] [address] [place] [address] Allergies Active Allergy Reactions Criticality [...] Hepatic encephalopathy 03/28/2022 Overview (12/06/2022): admitted [facility], ammonia 110 Aortic stenosis, moderate 01/21/2022 [...] file Not on file 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 documented in this encounter Plan of Treatment Upcoming Encounters Date Type Department Care Team (Late st Contact Info) Description 11/14/2024 12:30 PM EST Imaging Radiology [address] 132 [place] [phone] 12/26/2024 9:00 AM EST Office Visit Pharmacy, [address] [place] [address] [place] [address] 03/31/2025 4:00 PM EDT Office Visit Nephrology, [facility] 200 [facility] [place] [address] Fernando Reina MD 200 [facility] [place] [address] 04/18/2025 10:30 AM EDT Office Visit Gastroenterology, [facility] 132 [place] [address] Ren Pineda CRNP 132 [place] [address] 06/02/2025 10:00 AM EDT Office Visit Family Medicine [address] [place] [phone] Krystian Palomo MD [address] [place] [address] [place] [address] 09/11/2025 2:00 PM EST Imaging Radiology [address] [place] [address] Scheduled Procedures Name Priority Associated Diagnoses Date/Ti [...] this encounter Medical Devices Implanted Type Area Spanish Moss Picker Device Identifier Shelf Expiration Date Model / Serial / Lot Lipiodol Injection - [id number] Implanted:Qty: 1 on 08/02/2023 at [facility] [employer] 04/28/2026 26617-01 [id number] Syr Pf 2ml Embospheres 100-300 - [id number] Implanted:Qty: 1 on 08/02/2023 at [facility] [employer] [id number] 02/26/2026 S220GH / / [id number] Syr Pf 2ml Embospheres 100-300 - [id number] Implanted:Qty: 1 on 04/11/2024 at [facility] [employer] [id number] 12/27/2026 S220GH / / [id number] Lipiodol Injection - [id number] Implanted:Qty: 1 on 04/11/2024 at [facility] [employer] [id number] documented as of this encounter Care Teams Mortgage Specialist Relationship Specialty Start Date End Date Krystian Palomo MD [address] [place] [address] [place] [address] PCP - General Family Medicine 12/22/23 documented as of this encounter
--- OUTSIDE RECORDS SUMMARY | 2024-11-29 06:54 | External Medical Summary | Summary of Care ---
Author Name Unknown Organization [facility] Address [address] [facility] [place] [address] Phone [phone] Care Team Providers Care Building Associate Name Role Phone Krystian Palomo MD Primary Care Provide r Reason for Visit * Reason Onset Date Comments Cirrhosis 10/21/2024 Encounter Details Date Type Department Care Team (Late st Contact Info) Description 10/21/2024 Telephone Gastroenterology, [facility] [address] [place] [address] Ren Pineda CRNP [address] [place] [address] Cirrhosis Allergies Active Allergy Reactions Criticality Noted Date Comments Aspirin 01/28/2022 Other reaction(s): bloody nose Salicylates 08/08/2001 nose bleeds documented as of this encounter (statuses as of 10/21/2024) Medications Multivitamin Adult Oral Tablet daily . 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 In the morning.. 90 Tablet 1 4 Active Tamsulosin HCl 0.4 MG Oral Capsule (Flomax)Indications :Urinary retention TAKE ONE CAPSULE BY MOUTH EVERY DAY 90 Capsule 1 4 Active rifAXIMin 550 MG Oral Tablet (Xifaxan)Indication [...] MG Oral Tablet (Proamatine)Indicat ions:at hosp d/c 097[address] Take 3 Tablets by mouth in the morning and 3 Tablets at noon and 3 Tablets in the evening. 4 Active Potassium Chloride [facility] 10 MEQ Oral Tablet Extended Release Take 2 Tablets by mouth in the morning and 2 Tablets at noon and 2 Tablets before bedtime. 4 Active Dexcom G7 Sensor Use as directed every 10 days. DxE11.9 3 Each 3 4 Active Mupirocin 2 % External Ointment (Bactroban) Apply topically to affected area 3 times a day. At hospital discharge 22 g 1 4 Active Lactulose 10 GM/15ML Oral Solution (Constulose)Indicat ions:Hepatic encephalopathy (HCC) Take 45 mL by mouth in the morning and 45 mL at noon and 45 mL before bedtime. 4050 mL 1 4 Active Torsemide 20 MG Oral Tablet (Demadex) Take 1 Tablet by mouth in the morning. 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 07/05/2023 Hepatic encephalopathy 03/28/2022 Overview (12/06/2022): admitted [facility], ammonia 110 Aortic stenosis, [...] as of this encounter (statuses as of 10/21/2024) Resolved Problems Problem Noted Date Diagnosed Date [...] as of this encounter (statuses as of 10/21/2024) Immunizations Name Administration Dates Next Due COVID-19 [...] file Not on file Not on file POISON INFORMATION SPECIALIST Not on file Not on file Not on file documented as of this encounter Miscellaneous Notes * Addendum Note - Mynor Manuel CMA - 10/21/2024 2:15 PM ESTAddended by: MYNOR MANUEL on: 10/21/2024 02:15 PM Modules accepted: Orders * Telephone Encounter - Mynor Manuel CMA - 10/21/2024 2:12 PM EST Reviewed meds with pt. Went over meds as listed in TE and pt states they are correct. As far as diuretics, pt is only taking torsemide 20mg once a day. Pt was told by kidney dr to only take once a day due to his labs/levels dropping. * Telephone Encounter - Ren Pineda CRNP - 10/21/2024 1:41 PM EST Please call Lloyd. Ask him to get all his medicines and to read the labels to you. I'm specifically concerned about diuretics. He had told us on Monday that he is taking torsemide 20mg once daily. Most recent hospital DC paperwork says torsemide 20mg BID. [facility] OP records don't list any diuretics. I'll make a recommendation once I know exactly what diuretic/s, dose and frequency he is currently taking. documented in this encounter Plan of Treatment Upcoming Encounters Date Type Department Care Team (Late st Contact Info) Description 10/28/2024 8:00 AM EST Office Visit Family Medicine [address] [place] [phone] Gaby Bey [address] [place] [address] 10/28/2024 8:30 AM EST Office Visit Pharmacy, [address] [place] [address] [place] [address] 11/14/2024 12:30 PM EST Imaging Radiology [facility] 1st Floor, [place] [address] [place] [address] 03/31/2025 4:00 PM EDT Office Visit Nephrology, Girish Mariee [address] [facility] [place] [address] Fernando Reina MD [address] [place] [address] 04/18/2025 10:30 AM EDT Office Visit Gastroenterology, [facility] [address] [place] [address] Ren Pineda CRNP [address] [place] [address] 09/11/2025 2:00 PM EST Imaging Radiology [address] [place] [address] Scheduled Procedures Name Priority Associated Diagnoses Date/Ti [...] history exists Depression Screening 09/09/2025 09/09/2024 GFR 10/18/2025 10/18/2024, 11/2023, 09/17/2024, Additional history exists Lipid Panel 09/18/2028 09/18/2023, [...] this encounter Medical Devices Implanted Type Area Card Boxer Device Identifier Shelf Expiration Date Model / Serial / Lot Lipiodol Injection - [id number] Im[facility]ed:[facility]20[facility] [id number] Syr Pf 2ml Embospheres 100-300 - [id number] Implanted:Qty: 1 on 08/02/2023 at [facility] [employer] [id number] 02/26/2026 S220GH / / [id number] Syr Pf 2ml Embospheres 100-300 - [id number] Implanted:Qty: 1 on 04/11/2024 at [facility] [employer] [id number] 12/27/2026 S220GH / / [id number] Lipiodol Injection - [id number] Implanted:Qty: 1 on 04/11/2024 at [facility] [employer] 42637-15 documented as of this encounter Care Teams Building Associate Relationship Specialty Start Date End Date Krystian Palomo MD [address] [place] [address] [place] [address] PCP - General Family Medicine 12/22/23 documented as of this encounter
--- OUTSIDE RECORDS SUMMARY | 2024-11-29 06:54 | External Medical Summary | Summary of Care ---
Author Name Unknown Organization [facility] Address [address] [facility] [place] [address] Phone [phone] Care Team Providers Care Wastewater Plant Civil Engineer Name Role Phone Krystian Palomo MD Primary Care Provide r Reason for Visit * Reason Comments Dosage Adjustment In Person (Anticoag Cl inic) Diabetes Follow-Up Encounter Details Date Type Department Care Team (Late st Contact Info) Description 10/29/2024 8:40 AM EST Office Visit Pharmacy, [address] [place] [address] [place] [address] Type 2 diabetes mellitus with hemoglobin A1c goal of less than 7.0% ([facility])* Allergies Active Allergy Reactions Criticality Noted Date Comments Aspirin 01/28/2022 Other reaction(s): bloody nose Salicylates 08/08/2001 nose bleeds documented as of this encounter (statuses as of 10/29/2024) Medications Multivitamin Adult Oral Tablet daily . 10/12/20 21 Active Vitamin C 1000 MG Oral Tablet daily . 10/12/20 21 Active Atorvastatin Calcium 20 MG Oral Tablet (Lipitor)Indication s:Hyperlipidemia with target LDL less than 100 Take 1 Tablet by mouth in the morning. 90 Tablet 1 07/11/20 23 Active Insulin Glargine Solostar 100 UNIT/ML Subcutaneous Solution Pen-injector (Lantus SoloStar) Inject 10 Units under the skin daily. 15 mL 3 04/19/20 24 Active Probiotic & Acidophilus Ex St Oral Capsule Take 1 Capsule by mouth in the morning and 1 Capsule at noon and 1 Capsule in the evening. Take with meals. Active Omeprazole 20 MG Oral Capsule Delayed Release (PriLOSEC)Indicatio ns:GERD (gastroesophageal reflux disease) Take 1 Capsule by mouth in the morning. 1 hour before the first meal of the day. 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 In the morning.. 90 Tablet 1 07/04/20 24 Active Tamsulosin HCl 0.4 MG Oral Capsule (Flomax)Indications :Urinary retention TAKE ONE CAPSULE BY MOUTH EVERY DAY 90 Capsule 1 07/04/20 24 Active rifAXIMin 550 MG Oral Tablet (Xifaxan)Indication [...] 2 Tablets before bedtime. 09/04/20 24 Active Mupirocin 2 % External Ointment (Bactroban) Apply topically to affected area 3 times a day. At hospital discharge 22 g 1 10/02/20 24 Active Lactulose 10 GM/15ML Oral Solution (Constulose)Indicat ions:Hepatic encephalopathy (HCC) Take 45 mL by mouth in the morning and 45 mL at noon and 45 mL before bedtime. 4050 mL 1 10/02/20 24 Active Torsemide 20 MG Oral Tablet (Demadex) Take 1 Tablet by mouth in the morning. Active Dexcom G7 Sensor Use as directed every 10 days. DxE11.9 3 Each 3 10/29/20 24 Active Dexcom G7 Sensor Use as directed every 10 days. 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 07/05/2023 Hepatic encephalopathy 03/28/2022 Overview (12/06/2022): admitted [facility], ammonia [...] as of this encounter (statuses as of 10/29/2024) Resolved Problems Problem Noted Date Diagnosed Date [...] as of this encounter (statuses as of 10/29/2024) Immunizations Name Administration Dates Next Due COVID-19 [...] file Not on file Not on file HOSPICE SPIRITUAL CARE COORDINATOR Not on file Not on file Not on file documented as of this encounter Progress Notes * Crystal Lang, [facility] - 10/29/2024 8:40 AM EST Medication Therapy Disease Management Clinic - Diabetes Management Progress Note Lloyd Spencer, identified by name and date of , is a 59 year old male being seen for diabetes management/education. Patient presents for return diabetic visit. DIABETES: Current diabetic medications: Lantus 10 units daily eGFR >90 as of 09/09/24 Medication Injection Site: Abdomen Lifestyle: Diet: unchanged Glucose Review/SMBG: Not available Hypoglycemia: Does your blood sugar go below 70 mg/dL? Denies Hyperglycemia symptoms present: none Recent Labs Units 04/19/24 1324 01/05/24 0822 09/18/23 1141 HEMOGLOBIN A1C - [facility] % 8.4* 7.0* 5.9* Recent Labs Units 10/18/24 1051 09/30/24 0000 09/17/24 0000 ESTIMATED GLOMERULAR FILTRATION RATE - [facility] mL/min 88 92.80 98.44 CREATININE - [facility] mg/dL 1.0 0.94 0.88 HYPERTENSION: Patient on ACEi/ARB: no, stopped during hospital admission BP Readings from Last 3 Encounters: 10/28/24 102/60 10/18/24 106/68 09/25/24 103/52 Blood pressure at goal: yes HYPERLIPIDEMIA: Recent Labs Units 09/18/23 1141 06/21/23 0949 LDL CHOLESTEROL (CALCULATED) - [facility] mg/dL 101 105 Does patient have clinical ASCVD? No, is patient LDL less than 70mg/dL? No: Plan to repeat labs HEALTH MAINTENANCE REVIEW: Health Maintenance Due Topic Date Due Zoster Vaccines (1 of 2) Never done Pneumococcal Vaccine: 50+ Years (2 of 2 - PCV) 12/24/2014 DTap/Tdap Vaccines (2 - Td or Tdap) 07/13/2021 Albumin/Creatinine Ratio 12/06/2023 Diabetic Foot Exam 06/21/2024 Influenza Vaccine (FLU shot) (1) 06/30/2024 COVID-19 Vaccine (2023- season) 2024 Diabetic Eye Exam 09/20/2024 HbA1c 10/19/2024 ASSESSMENT & PLAN: ICD-10-CM 1. Type 2 diabetes mellitus with hemoglobin A1c goal of less than 7.0% (HCC) E11.9 Considerations: Medically complex Hepatocellular carcinoma Recent admission for hepatic encephalopathy, A1c increased to 8.4% ([facility] 02/26 - 02/28) Dexcom G7 --> Pharmacy Ozempic hesitancy due to constipation risk/concern [facility] ([employer] [facility]) BG meter ACEi stopped during [facility] hospitalization (05/26/24 - 05/30/24) BG Readings - Blood sugars not available. Patient forgot BG meter at home. States he is testing regularly. No readings > 180mg/dL or < 120mg/dL. Due for updated A1c which is ordered. Encouragedto have drawn with next set of labs. Of note, patient states Dexcom G7 was costing him > $100/month last time he checked with the pharmacy. Upon the new year, he is changing insurances to [place] [employer] and [employer]. Will plan to resend to assess cost with new plan. Medications - Reviewed current regimen, patient is adherent to regimen. Tolerating well. Will plan to continue at this time as BG readings unable to be appropriately assessed. Diet, Exercise, Lifestyle - No significant lifestyle changes since last visit. Patient is agreeable to SMBG 1-3 time(s) daily. Patient aware to contact clinic if any hypoglycemia before next visit. MEDICATION CHANGES: no change Diabetic Medications: Lantus 10 units daily eGFR >90 as of 09/09/24 HEALTH MAINTENANCE INTERVENTIONS: Deferred d/t time constraints FOLLOW UP: Return to clinic in 8 weeks 12/26/2024 I spent a total of 30-39 minutes (exact time 35 mins) on the date of service in preparation, delivery, and documentation of the care provided to Lloyd Spencer excluding any time spent in the performance of separately billed services. Crystal Lang [facility] Clinical Pharmacist - Corrections Unit Supervisor Medication Therapy Management Clinic 10/29/2024, 8:40 AM documented in this encounter Plan of Treatment Upcoming Encounters Date Type Department Care Team (Late st Contact Info) Description 11/14/2024 12:30 PM EST Imaging Radiology [address] [facility] [place] [address] 12/26/2024 9:00 AM EST Office Visit Pharmacy, [address] [place] [address] [place] [address] 03/31/2025 4:00 PM EDT Office Visit Nephrology, [address] [place] [address] Fernando Reina MD [address] [place] [address] 04/18/2025 10:30 AM EDT Office Visit Gastroenterology, [facility] [address] [place] [address] Ren Pineda CRNP [address] [place] [address] 06/02/2025 10:00 AM EDT Office Visit Family Medicine [address] [place] [phone] Krystian Palomo MD [address] [place] [address] [place] [address] 09/11/2025 2:00 PM EST Imaging Radiology [address] [place] [address] Scheduled Procedures Name Priority Associated Diagnoses Date/Ti [...] 04/19/2024, 030 05/2024, 09/18/2023, Additional history exists Depression Screening 09/09/2025 09/09/2024 GFR 10/18/2025 10/18/2024, 1211/2023, 09/17/2024, Additional history exists Lipid Panel 09/18/2028 [...] this encounter Medical Devices Implanted Type Area Save All Operator Device Identifier Shelf Expiration Date Model / Serial / Lot Lipiodol Injection - [id number] Implanted:Qty: 1 on 08/02/2023 at [facility] [employer] 04/28/2026 32871-33 [id number] Syr Pf 2ml Embospheres 100-300 - [id number] Implanted:Qty: 1 on 08/02/2023 at [facility] [employer] [id number] 02/26/2026 S220GH / / [id number] Syr Pf 2ml Embospheres 100-300 - [id number] Implanted:Qty: 1 on 04/11/2024 at [facility] [employer] [id number] 12/27/2026 S220GH / / [id number] Lipiodol Injection - [id number] Implanted:Qty: [facility] [employer] 37498-47 documented as of this encounter Visit Diagnoses Diagnosis Type 2 diabetes mellitus with hemoglobin A1c goal of less than 7.0% (HCC)- Primary documented in this encounter Care Teams Wastewater Plant Civil Engineer Relationship Specialty Start Date End Date Krystian Palomo MD [address] [place] [address] [place] [phone] PCP - General Family Medicine 12/22/23 documented as of this encounter
--- OUTSIDE RECORDS SUMMARY | 2024-11-29 06:54 | External Medical Summary | Summary of Care ---
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 Not on file Not on file documented as of this encounter Last Filed Vital Signs Vital Sign Reading Time Taken Comments Blood Pressure 102/60 10/28/2024 8:01 AM EST Pulse 102 10/28/2024 8:01 AM EST Temperature 36.1 C (96.9 F) 10/28/2024 8:01 AM ES T Respiratory Rate 16 10/28/2024 8:01 AM EST Oxygen Saturation 98% 10/28/2024 8:01 AM EST Inhaled Oxygen Concentration - - Weight 110.2 kg (243 lb) 10/28/2024 8:01 AM EST Height - - Body Mass Index 34.36 09/20/2024 8:40 AM EST documented in this encounter Plan of Treatment Upcoming Encounters Date Type Department Care Team (Late st Contact Info) Description 10/29/2024 8:40 AM EST Office Visit Pharmacy, [address] [place] [address] [place] [address] 11/14/2024 12:30 PM EST Imaging Radiology [address] [place] [address] 03/31/2025 4:00 PM EDT Office Visit Nephrology, [facility] [address] [place] [address] Fernando [facility]ina [facility] [address] [facility] [address] 04/18/2025 10:30 AM EDT Office Visit Gastroenterology, [facility] [address] [place] [address] Ren Pineda CRNP [address] [place] [address] 06/02/2025 10:00 AM EDT Office Visit Family Medicine [address] [place] [phone] Krystian Palomo MD [address] [place] [address] [place] [address] 09/11/2025 2:00 PM EST Imaging Radiology [address] [place] [address] Scheduled Procedures Name Priority Associated Diagnoses Date/Ti [...] Depression Screening 09/09/2025 09/09/2024 GFR 10/18/2025 10/18/2024, 12/0 11/2023, 09/17/2024, Additional history exists Lipid Panel [...] encounter Medical Devices Implanted Type Area Nuclear Equipment Operator Device Identifier Shelf Expiration Date Model / Serial / Lot Lipiodol Injection - [id number] Implanted:Qty: 1 on 08/02/2023 at [facility] [employer] 04/28/2026 25103-77 - [id number] Syr Pf 2ml Embospheres 100-300 - [id number] Implanted:Qty: 1 on 08/02/2023 at [facility] [employer] [facility] [id number] 02/26/2026 S220GH / / [id number] Syr Pf 2ml Embospheres 100-300 - [id number] Implanted:Qty: 1 on 04/11/2024 at [facility] [employer] [facility] [id number] 12/27/2026 S220GH / / [id number] Lipiodol Injection - [id number] Implanted:Qty: 1 on 04/11/2024 at [facility] [employer] [address]2887-81 documented as of this encounter Visit Diagnoses Diagnosis Type 2 diabetes mellitus with hemoglobin A1c goal of less than 7.0% (HCC)- Primary Primary hypertension Unspecified essential hypertension 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
--- OUTSIDE RECORDS SUMMARY | 2024-11-29 06:54 | External Medical Summary | Summary of Care ---
Author Name Unknown Organization [facility] [address] [facility] [address] Phone [phone] Care Team Providers Care Printed Circuit Board Assembler Name Role Phone Krystian Palomo MD Primary Care Provide r Encounter Details Date Type Department Care Team (Late st Contact Info) Description 11/06/2024 Result Scan Unspecified Department Ren Pineda CRNP [address] [place] [address] <No scans attached> Allergies Active Allergy Reactions Criticality Noted Date Comments Aspirin 01/28/2022 Other reaction(s): bloody nose Salicylates 08/08/2001 nose bleeds documented as of this encounter (statuses as of 11/07/2024) Medications Multivitamin Adult Oral Tablet daily . [...] and 2 Tablets before bedtime. 4 Active Mupirocin 2 % External Ointment [...] days. 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 [address] [place] [address] Ren Pineda CRNP [address] [place] [address] 06/02/2025 10:00 AM EDT Office Visit Family Medicine [address] [place] [phone] Krystian Palomo MD [address] [place] [address] [place] [address] 09/11/2025 2:00 PM EST Imaging Radiology [address] [place] [address] Scheduled Procedures Name Priority Associated Diagnoses Date/Ti [...] 10/19/2024 04/19/2024, 05/2024, 09/18/2023, Additional history exists Depression Screening [...] this encounter Medical Devices Implanted Type Area Rn Radiation Oncology Device Identifier Shelf Expiration Date Model / Serial / Lot Lipiodol Injection - [id number] Implanted:Qty: 1 on 08/02/[address] [facility] [employer] 04/28/2026 04562-44 [id number] Syr Pf 2ml Embospheres 100-300 - [id number] Implanted:Qty: 1 on 08/02/[address] [facility] [employer] [id number] 02/26/2026 S220GH / / [id number] Syr Pf 2ml Embospheres 100-300 - [id number] Implanted:Qty: 1 on 04/11/[address] [facility] [employer] [id number] 12/27/2026 S220GH / / [id number] Lipiodol Injection - [id number] Implanted:Qty: 1 on 04/11/[address] [facility] KYLER LAU [id number] documented as of this encounter Procedures Procedure Name Priority Date/Time Associated Diagnosis Comments OUTSIDE LAB RESULTS 11/06/2024 RADIOLOGY SCANNED RESULT 11/06/2024 documented in this encounter Results * RADIOLOGY SCANNED RESULT (11/06/2024) 11/06/2024 us [facility] Final Result * OUTSIDE LAB RESULTS (11/06/2024) 11/06/2024 us [facility] Final Resu lt documented in this encounter Care Teams Printed Circuit Board Assembler Relationship Specialty Start Date End Date Krystian Palomo MD [address] [place] [address] [place] [phone] PCP - General Family Medicine 12/22/23 documented as of this encounter
--- OUTSIDE RECORDS SUMMARY | 2024-11-29 06:54 | External Medical Summary | Summary of Care ---
Author Name Unknown Organization [facility] Address [address] [facility] [place] [address] Phone [phone] Care Team Providers Care Vegetable Inspector Name Role Phone Krystian Palomo MD Primary Care Provide r Reason for Visit * Reason Onset Date Comments Cirrhosis 10/21/2024 Encounter Details Date Type Department Care Team (Late st Contact Info) Description 10/21/2024 Telephone Gastroenterology, [facility] [address] [place] [address] Ren Pineda CRNP [address] [place] [address] Cirrhosis Allergies Active Allergy Reactions Criticality Noted [...] 07/05/2023 Hepatic encephalopathy 03/28/2022 Overview (12/06/2022): admitted [facility], ammonia 110 Aortic stenosis, moderate [...] file Not on file 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 * Addendum Note - Mynor Manuel CMA [...] hospital DC paperwork says torsemide 20mg BID. EPIC OP records don't list any diuretics. I'll make a recommendation once I know exactly what diuretic/s, dose and frequency he is currently taking. documented in this encounter Plan of Treatment Upcoming Encounters Date Type Department Care Team (Late st Contact Info) Description 10/28/2024 8:00 AM EST Office Visit Family Medicine [address] [place] [address] Gaby Bey CRNP [address] [place] [address] [place] [address] 10/28/2024 8:30 AM EST Office Visit Pharmacy, [address] [place] [address] [place] [address] 11/14/2024 12:30 PM EST Imaging Radiology [address] 132 [facility] [place] [address] 03/31/2025 4:00 PM EDT Office Visit Nephrology, [facility] [address] [place] [address] Fernando Reina MD [address] [place] [address] 04/18/2025 10:30 AM EDT Office Visit Gastroenterology, [facility] 132 [facility] [place] [address] Ren Pineda CRNP [address] [place] [address] 09/11/2025 2:00 PM EST Imaging Radiology [address] [place] [address] Scheduled Procedures Name Priority Associated Diagnoses Date/Ti [...] Depression Screening 09/09/2025 09/09/2024 GFR 10/18/2025 10/18/2024, 120 11/2023, 09/17/2024, Additional history exists Lipid Panel [...] this encounter Medical Devices Implanted Type Area Tier Lift Operator Device Identifier Shelf Expiration Date Model / Serial / Lot Lipiodol Injection - [id number] Implanted:Qty: 1 on 08/02/2023 at [facility] [employer] 04/28/2026 55755-53 [id number] Syr Pf 2ml Embospheres 100-300 - [id number] Implanted:Qty: 1 on 08/02/2023 at [facility] [employer] [id number] 02/26/2026 S220GH / / [id number] Syr Pf 2ml Embospheres 100-300 - [id number] Implanted:Qty: 1 on 04/11/2024 at [facility] [employer] [id number] 12/27/2026 S220 / / [id number] Lipiodol Injection - [id number] Implanted:Qty: 1 on 04/11/2024 at [facility] KYLER LAU [address] documented as of this encounter Care Teams Vegetable Inspector Relationship Specialty Start Date End Date Krystian Palomo MD [address] [place] [address] [place] [phone] PCP - General Family Medicine 12/22/23 documented as of this encounter
--- OUTSIDE RECORDS SUMMARY | 2024-11-29 06:54 | External Medical Summary | Summary of Care ---
Author Name Unknown Organization [facility] Address [address] [facility] [place] [address] Phone [phone] Care Team Providers Care Offensive Coordinator Name Role Phone Krystian Palomo MD Primary Care Provide r Reason for Visit * Reason Onset Date Comments Medication Refill 11/08/2024 Encounter Details Date Type Department Care Team (Late st Contact Info) Description 11/08/2024 Refill [facility], Jennifer Maguire [address] [place] [address] [place] [address] Krystian Palomo MD [address] [place] [address] [place] [address] Allergies Active Allergy Reactions [...] 07/05/2023 Hepatic encephalopathy 03/28/2022 Overview (12/06/2022): admitted [facility], ammonia 110 Aortic stenosis, moderate 01/21/2022 Thrombocytopenia [...] file Not on file 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 Not on file documented as of this encounter Miscellaneous Notes * Telephone Encounter - Romy Lipscomb OSA - 11/08/2024 8:24 PM ESTPending Prescriptions: Disp Refills OneTouch Verio In Vitro Strip (Glucose Blo*300 St*3 Sig: Use tocheck blood sugars up to three times daily DxE11.9 documented in this encounter Plan of Treatment Upcoming Encounters Date Type Department Care Team (Late st Contact Info) Description 11/14/2024 12:30 PM EST Imaging Radiology [address] [place] [address] 12/26/2024 9:00 AM EST Office Visit Pharmacy, [address] [place] [address] [place] [address] 03/31/2025 4:00 PM EDT Office Visit Nephrology, [facility] [address] [place] [address] Fernando Reina MD [address] [place] [address] 04/18/2025 10:30 AM EDT Office Visit Gastroenterology, [facility] [address] [place] [address] Ren Pineda CRNP [address] [place] [address] 06/02/2025 10:00 AM EDT Office Visit Family Medicine [address] [place] [address] Krystian Palomo MD [address] [place] [address] [place] [address] 09/11/2025 2:00 PM EST Imaging Radiology [address] [place] [address] Scheduled Procedures Name Priority Associated Diagnoses Date/Ti [...] this encounter Medical Devices Implanted Type Area Copy Messenger Device Identifier Shelf Expiration Date Model / Serial / Lot Lipiodol Injection - [id number] Implanted:Qty: 1 on 08/02/2023 at [facility] [employer] 04/28/2026 54206-99 01 -2 / / [id number] Syr Pf 2ml Embospheres 100-300 - [id number] Implanted:Qty: 1 on 08/02/2023 at [facility] [employer] [id number] 02/26/2026 S220GH / / [id number] Syr Pf 2ml Embospheres 100-300 - [id number] Implanted:Qty: 1 on 04/11/2024 at [facility] [employer] [id number] 12/27/2026 S220GH / / [id number] Lipiodol Injection - [id number] Implanted:Qty: 1 on 04/11/2024 at [facility] [employer] 72040-78 -2 / / documented as of this encounter Care Teams Offensive Coordinator Relationship Specialty Start Date End Date Krystian Palomo MD [address] [place] [address] [place] [phone] PCP - General Family Medicine 12/22/23 documented as of this encounter
--- OUTSIDE RECORDS SUMMARY | 2024-11-29 06:54 | External Medical Summary | Summary of Care ---
Author Name Unknown Organization [facility] Address [address] [facility] [place] [address] Phone [phone] Care Team Providers Care Perioperative Educator Name Role Phone Krystian Palomo MD Primary Care Provide r Encounter Details Date Type Department Care Team (Late st Contact Info) Description 10/22/2024 Orders Only Gastroenterology, [facility] [address] [place] [address] Ren Pineda CRNP [address] [place] [address] Allergies Active Allergy Reactions Criticality Noted Date Comments Aspirin 01/28/2022 Other reaction(s): bloody nose Salicylates 08/08/2001 nose bleeds documented as of this encounter (statuses as of 10/22/2024) Medications Multivitamin Adult Oral Tablet daily . 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 07/05/2023 Hepatic encephalopathy 03/28/2022 Overview (12/06/2022): admitted [facility], ammonia [...] as of this encounter (statuses as of 10/22/2024) Resolved Problems Problem Noted Date Diagnosed Date [...] as of this encounter (statuses as of 10/22/2024) Immunizations Name Administration Dates Next Due COVID-19 [...] file Not on file 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 Not on file Not on file documented as of this encounter Plan of Treatment Upcoming Encounters Date Type Department Care Team (Late st Contact Info) Description 10/28/2024 8:00 AM EST Office Visit Family Medicine [address] [place] [phone] Gaby Bey [address] [place] [address] 10/28/2024 8:30 AM EST Office Visit Pharmacy, [address] [place] [address] [place] [address] 11/14/2024 12:30 PM EST Imaging Radiology [facility] 132 [facility] [place] [address] 03/31/2025 4:00 PM EDT Office Visit Nephrology, [facility] [address] [place] [address] Fernando Reina MD [address] [place] [address] 04/18/2025 10:30 AM EDT Office Visit [facility]enterology, [facility] [place] [address] Ren Pineda CRNP [address] [place] [address] 09/11/2025 2:00 PM EST Imaging Radiology [address] [place] [address] Scheduled Procedures Name Priority Associated Diagnoses Date/Ti [...] this encounter Medical Devices Implanted Type Area Field Marketing Coordinator Device Identifier Shelf Expiration Date Model / Serial / Lot Lipiodol Injection - [id number] Implanted:Qty: 1 on 08/02/2023 at [facility] [employer] 04/28/2026 87015-87 [id number] Syr Pf 2ml Embospheres 100-300 - [id number] Implanted:Qty: 1 on 08/02/2023 at [facility] [employer] [id number] 02/26/2026 S220GH / / [id number] Syr Pf 2ml Embospheres 100-300 - [id number] Implanted:Qty: 1 on 04/11/2024 at [facility] [employer] [id number] 12/27/2026 S220GH / / [id number] Lipiodol Injection - [id number] Implanted:Qty: 1 on 04/11/2024 at [facility] KYLER LAU [address] documented as of this encounter Procedures Procedure Name Priority Date/Time Associated Diagnosis Comments CBC Routine 10/21/2024 documented in this encounter Results * (ABNORMAL) CBC WITH WBC DIFFERENTIAL (10/21/2024) HGB 9.6(A) 14.0 - 18.0 G/DL OUTSIDE LAB (SEE SCANNED REPORT) Blood Venous blood specimen / Unknown 10/21/2024 us Ren [facility] LAB BLOOD ORDERABLES Final Result OUTSIDE LAB (SEE SCANNED REPORT) documented in this encounter Care Teams Perioperative Educator Relationship Specialty Start Date End Date Krystian Palomo MD [address] [place] [address] [place] [phone] PCP - General Family Medicine 12/22/23 documented as of this encounter"
--- OUTSIDE RECORDS SUMMARY | 2024-11-29 06:54 | External Medical Summary | Summary of Care ---
Author Name Unknown Organization [facility] Address [address] [facility] [place] [address] Phone [phone] Care Team Providers Care Fundraising Manager Name Role Phone Krystian Palomo MD Primary Care Provide r Reason for Visit * Reason Onset Date Comments Cirrhosis 10/21/2024 Encounter Details Date Type Department Care Team (Late st Contact Info) Description 10/21/2024 Telephone Gastroenterology, [facility] [address] [place] [address] Ren Pineda CRNP [address] [place] [address] Cirrhosis Allergies Active Allergy Reactions Criticality Noted [...] 07/05/2023 Hepatic encephalopathy 03/28/2022 Overview (12/06/2022): admitted [facility], ammonia 110 [...] file Not on file 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 Not [...] 8:00 AM EST Office Visit Family Medicine [address] [place] [address] [place] [address] 10/28/2024 8:30 AM EST Office Visit Pharmacy, [address] [place] [address] [place] [address] 11/14/2024 12:30 PM EST Imaging Radiology [address], [address] [place] [address] 03/31/2025 4:00 PM EDT Office Visit Nephrology, [facility] [address] [place], [place] [address] Fernando Reina MD [address] [place] [address] 04/18/2025 10:30 AM EDT Office Visit Gastroenterology, [facility] [address] [place] [address] Ren Pineda CRNP [address] [place] [address] 09/11/2025 2:00 PM EST Imaging Radiology [address] [place] [address] Scheduled Procedures Name Priority Associated Diagnoses Date/Ti [...] this encounter Medical Devices Implanted Type Area Recruiting Assistant Device Identifier Shelf Expiration Date Model / Serial / Lot Lipiodol Injection - [id number] Implanted:[facility] 04/28/2026 58923-87 \[id number] Syr Pf 2ml Embospheres 100-300 - [id number] Implanted:Qty: 1 on [facility] [employer] [id number] 02/26/2026 S220GH / / [id number] Syr Pf 2ml Embospheres 100-300 - [id number] Implanted:Qty: 1 on [facility] [id number] 12/27/2026 S220GH / / [id number] Lipiodol Injection - [id number] Implanted:Qty: 1 on 04/11/2024 at [facility] [email or web address] [address]18-17 documented as of this encounter Care Teams Fundraising Manager Relationship Specialty Start Date End Date Krystian Palomo MD [address] [place] [address] [place] [phone] PCP - General Family Medicine 12/22/23 documented as of this encounter
--- OUTSIDE RECORDS SUMMARY | 2024-11-29 06:54 | External Medical Summary | Summary of Care ---
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 4050 mL 1 11/11/19 25 Active Omeprazole 20 MG Oral Capsule Delayed Release (PriLOSEC)Indicatio ns:GERD (gastroesophageal reflux disease) Take 1 Capsule by mouth in the morning. 1 hour before the first meal of the day. 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 In the morning.. 90 Tablet 1 07/04/20 24 025 Discontin ued(Refil l) Tamsulosin HCl 0.4 MG Oral Capsule (Flomax)Indications :Urinary retention TAKE ONE CAPSULE BY MOUTH EVERY DAY 90 Capsule 1 07/04/20 24 025 Discontin ued(Refil l) Mupirocin 2 % External Ointment (Bactroban) Apply topically to affected area 3 times a day. At hospital discharge 22 g 1 10/02/20 24 025 Discontin ued(Refil l) Lactulose 10 GM/15ML Oral Solution (Constulose)Indicat ions:Hepatic encephalopathy (HCC) Take 45 mL by mouth in the morning and 45 mL at noon and 45 mL before bedtime. 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 1 hour before the first meal of the day.Authorizing Provider: Umu PALOMO User: ERLINDA GARCIA Allopurinol 300 MG Oral Tablet (Zyloprim)90 Tab*1 Sig: Take 1 Tablet by mouth in the morning. In the morning..Authorizing Provider: Umu PALOMO User: ERLINDA GARCIA Tamsulosin HCl 0.4 MG Oral Capsule (Flomax)90 Cap*1 Sig: TAKE ONE CAPSULE BY MOUTH EVERY DAYAuthorizing Provider: Umu PALOMO User: ERLINDA GARCIA Mupirocin 2 % External Ointment (Bactroban)22 g 1 Sig : Apply topically to affected area 3 times a day. At hospital dischargeAuthorizing Provider: KRYSTIAN PALOMOLactulose 10 GM/15ML Oral Solution (Constu*4050 mL1 Sig: Take 45 mL by mouth in the morning and 45 mL at noon and 45 mL before bedtime.Authorizing Provider: KRYSTIAN PALOMO * Telephone Encounter - Erlinda Garcia [facility] - 11/09/2024 11:03 AM EST Pending Prescriptions: Disp Refills Mupirocin 2 % External Ointment (Bactroban)22 g 1 Sig: Apply topically to affected area 3 times a day. At hospital discharge Lactulose 10 GM/15ML Oral Solution (Constu*4050 mL1 Sig: Take 45 mL by mouth in the morning and 45 mL at noon and 45 mL before bedtime. Signed Prescriptions: Disp Refill s Omeprazole 20 MG Oral Capsule Delayed Rele*90 Cap*1 Sig: Take 1 Capsule by mouth in the morning. 1 hour before the first meal of the day. Authorizing Provider: KRYSTIAN PALOMO Ordering User: ERLINDA GARCIA Allopurinol 300 MG Oral Tablet (Zyloprim) 90 Tab*1 Sig: Take 1 Tablet by mouth in the morning. In the morning.. Authorizing Provider: JANIE PALOMO Ordering User: ERLINDA GARCIA Tamsulosin HCl 0.4 MG Oral Capsule (Flomax)90 Cap*1 Sig: TAKE ONE CAPSULE BY MOUTH EVERY DAY Authorizing Provider: KRYSTIAN PALOMO Ordering User: ERLINDA GARCIA * Telephone Encounter - Erlinda Garcia [facility] - 11/09/2024 11:02 AM EST [facility] is currently not authorized to approve refills for the pended medication(s) per refill protocol. Please approve if appropriate. Thank you, Erlinda Garcia, PharmD Clinical Pharmacist Centralized Clinical Pharmacy Services ([facility]) 11/09/24 11:02 AM [phone] documented in this encounter Plan of Treatment Upcoming Encounters Date Type Department Care Team (Late st Contact Info) Description 11/14/2024 12:30 PM EST Imaging Radiology [address] [place] [phone] 12/26/2024 9:00 AM EST Office Visit Pharmacy, [address] [place] [address] [place] [address] 03/31/2025 4:00 PM EDT Office Visit Nephrology, [facility] [address] [facility] [place] [address] Fernando Reina MD [address] [facility] [place] [address] 04/18/2025 10:30 AM EDT Office Visit Gastroenterology, [facility] [address] [place] [address] Ren Pineda CRNP [address] [place] [address] 06/02/2025 10:00 AM EDT Office Visit Family Medicine [address] [place] [phone] Krystian Palomo MD [address] [place] [address] [place] [address] 09/11/2025 2:00 PM EST Imaging Radiology [address] [place] [address] Scheduled Procedures Name Priority Associated Diagnoses Date/Ti [...] this encounter Medical Devices Implanted Type Area Measuring Machine Tender Device Identifier Shelf Expiration Date Model / Serial / Lot Lipiodol Injection - [id number] Implanted:Qty: 1 on 08/02/2023 at [facility] [employer] 04/28/2026 34027-05 [id number] Syr Pf 2ml Embospheres 100-300 - [id number] Implanted:Qty: 1 on 08/02/2023 at [facility] [employer] [id number] 02/26/2026 S220GH / / [id number] Syr Pf 2ml Embospheres 100-300 - [id number] Implanted:Qty: 1 on 04/11/2024 at [facility] [employer] [id number] 12/27/2026 S220GH / / [id number] Lipiodol Injection - [id number] Implanted:Qty: 1 on 04/11/2024 at [facility] [employer] 67885-71 documented as of this encounter Visit Diagnoses Diagnosis GERD (gastroesophageal reflux disease) Esophageal reflux 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
--- OUTSIDE RECORDS SUMMARY | 2024-11-29 06:54 | External Medical Summary | Summary of Care ---
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) [...] 07/05/2023 Hepatic encephalopathy 03/28/2022 Overview (12/06/2022): admitted [facility] [...] file Not on file 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 Not on file documented as of this encounter Miscellaneous Notes * Telephone Encounter - Ana Malcolm LPN - 11/11/2024 8:18 AM ESTRefused Prescriptions: Disp Refills rifAXIMin 550 MG Oral Tablet (Xifaxan) 60 Tab*12 Sig: TAKE ONE TABLET BY MOUTH EVERY MORNING AND ONE TABLET AT BEDTIMERefused By: Sagar MALCOLM for Refusal: Too soon documented in this encounter Plan of Treatment Upcoming Encounters Date Type Department Care Team (Late st Contact Info) Description 11/14/2024 12:30 PM EST Imaging Radiology [address] [place] [phone] 12/26/2024 9:00 AM EST Office Visit Pharmacy, [address] [place] [address] [place] [address] 03/31/2025 4:00 PM EDT Office Visit Nephrology, [facility] [address] [facility] [address] [place] [address] Fernando Reina MD [address] [place] [address] 04/18/2025 10:30 AM EDT Office Visit Gastroenterology, [facility] [address] [place] [address] Ren Pineda CRNP [address] [place] [address] 06/02/2025 10:00 AM EDT Office Visit Family Medicine [address] [place] [phone] Krystian Palomo MD [address] [place] [address] [place] [address] 09/11/2025 2:00 PM EST Imaging Radiology [address] [place] [address] Scheduled Procedures Name Priority Associated Diagnoses Date/Ti [...] Depression Screening 09/09/2025 09/09/2024 GFR 11/06/2025 11/06/2024, 12, 09/30/2024, Additional history exists Lipid Panel 09/18/2028 [...] this encounter Medical Devices Implanted Type Area Kennel Keeper Device Identifier Shelf Expiration Date Model / Serial / Lot Lipiodol Injection - [id number] Implanted:Q[facility] 04/[facility]/20[facility] [address]18-36 [id number] Syr Pf 2ml Embospheres 100-300 - [id number] Implanted:Qty: 1 on 08/02/2023 at [facility] [employer] [id number] 02/26/2026 S220GH / / [id number] Syr Pf 2ml Embospheres 100-300 - [id number] Implanted:Qty: 1 on [facility]20[facility] [id number] 12/27/2026 S220GH / / [id number] Lipiodol Injection - [id number] Implanted:Qty: 1 on [facility]20[facility] [address]-79 documented as of this encounter Visit Diagnoses Diagnosis 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
--- OUTSIDE RECORDS SUMMARY | 2024-11-29 06:55 | External Medical Summary | Summary of Care ---
Author Name Unknown Organization [facility] Address [address] [facility] [place] [address] Phone [phone] Care Team Providers Care Nurse Practitioner Manager Name Role Phone Krystian Palomo MD Primary Care Provide r Reason for Visit * Reason Onset Date Comments Cirrhosis 10/21/2024 Encounter Details Date Type Department Care Team (Late st Contact Info) Description 10/21/2024 Telephone Gastroenterology, [facility] [address] [place] [address] Ren Pineda CRNP [address] [place] [address] Cirrhosis Allergies Active Allergy Reactions Criticality Noted [...] 07/05/2023 Hepatic encephalopathy 03/28/2022 Overview (12/06/2022): admitted [facility], ammonia [...] file Not on file Not on file [employer] Not on file Not on file Not [...] hospital [place] paperwork says torsemide 20mg BID. [facility] OP records don't list any diuretics. I'll make a recommendation once I know exactly what diuretic/s, dose and frequency he is currently taking. documented in this encounter Plan of Treatment Upcoming Encounters Date Type Department Care Team (Late st Contact Info) Description 10/28/2024 8:00 AM EST Office Visit Family Medicine [address] [place] [phone] [address] Bey [address] [place] [address] 10/28/2024 8:30 AM EST Office Visit Pharmacy, [address] [place] [address] [place] [address] 11/14/2024 12:30 PM EST Imaging Radiology [facility] 1st Floor, [place] [address] [place] [address] 03/31/2025 4:00 PM EDT Office Visit Nephrology, Girish Mariee [address] [facility] [place] [address] Fernando Reina MD [address] [place] [address] 04/18/2025 10:30 AM EDT Office Visit Gastroenterology, [facility] [address] [place] [address] Ren Pineda CRNP 132 [place] [address] 09/11/2025 2:00 PM EST Imaging Radiology [address] [place] [address] Scheduled Procedures Name Priority Associated Diagnoses Date/Ti [...] this encounter Medical Devices Implanted Type Area Media Production Manager Device Identifier Shelf Expiration Date Model / Serial / Lot Lipiodol Injection - [id number] [facility] 07484-08 [id number] Syr Pf 2ml Embospheres 100-300 - [id number] Implanted:Qty: 1 on 08/02/2023 at [facility] [employer] [id number] 02/26/2026 S220GH / / [id number] Syr Pf 2ml Embospheres 100-300 - [id number] Implanted:Qty: 1 on 04/11/2024 at [facility] [employer] [id number] 12/27/2026 S220GH / / [id number] Lipiodol Injection - [id number] Implanted:Qty: 1 on 04/11/2024 at [facility] [employer] [id number] documented as of this encounter Care Teams Nurse Practitioner Manager Relationship Specialty Start Date End Date Krystian Palomo MD [address] [place] [address] [place] [address] PCP - General Family Medicine 12/22/23 documented as of this encounter
--- OUTSIDE RECORDS SUMMARY | 2024-11-29 06:55 | External Medical Summary | Summary of Care ---
Author Name Unknown Organization [facility] Address [address] [facility] [place] [address] Phone [phone] Care Team Providers Care Bead Forming Machine Set Up Operator Name Role Phone Krystian Palomo MD Primary Care Provide r Reason for Visit * Reason Onset Date Comments Cirrhosis 10/21/2024 Encounter Details Date Type Department Care Team (Late st Contact Info) Description 10/21/2024 Telephone Gastroenterology, [facility] [address] [place] [address] Ren Pineda CRNP [address] [place] [address] Cirrhosis Allergies Active Allergy Reactions Criticality Noted [...] before bedtime. 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 [facility] OP records don't list any diuretics. I'll make a recommendation once I know exactly what diuretic/s, dose and frequency he is currently taking. documented in this encounter Plan of Treatment Upcoming Encounters Date Type Department Care Team (Late st Contact Info) Description 10/28/2024 8:00 AM EST Office Visit Family Medicine [address] [place] [phone] Gaby Bey [address] [place] [address] 10/28/2024 8:30 AM EST Office Visit Pharmacy, [address] [place] [address] [place] [address] 11/14/2024 12:30 PM EST Imaging Radiology [address] 132 [facility] [place] [address] 03/31/2025 4:00 PM EDT Office Visit Nephrology, [facility] [place] [address] Fernando Reina MD [address] [place] [address] 04/18/2025 10:30 AM EDT Office Visit Gastroenterology, [facility] 132 [facility] [place] [address] Ren Pineda CRNP 132 [facility] [place] [address] 09/11/2025 2:00 PM EST Imaging Radiology [address] [place] [address] Scheduled Procedures Name Priority Associated Diagnoses Date/Ti [...] this encounter Medical Devices Implanted Type Area Tubular Riveter Device Identifier Shelf Expiration Date Model / Serial / Lot Lipiodol Injection - [id number] Implanted:Qty: 1 on 08/02/2023 at [facility] [employer] 04/28/2026 88078-99 [id number] Syr Pf 2ml Embospheres 100-300 - [id number] Implanted:Qty: 1 on 08/02/2023 at [facility] [employer] [id number] 02/26/2026 S220GH / / [id number] Syr Pf 2ml Embospheres 100-300 - [id number] Implanted:Qty: 1 on 04/11/2024 at [facility] [employer] [id number] 12/27/2026 S220GH / / [id number] Lipiodol Injection - [id number] Implanted:Qty: 1 on 04/11/2024 at [facility] [employer] [facility] [id number] documented as of this encounter Care Teams Bead Forming Machine Set Up Operator Relationship Specialty Start Date End Date Krystian Palomo MD [address] [place] [address] [place] [address] PCP - General Family Medicine 12/22/23 documented as of this encounter
--- OUTSIDE RECORDS SUMMARY | 2024-11-29 06:55 | External Medical Summary | Summary of Care ---
Author Name Unknown Organization [facility] Address [address] [facility] [place] [address] Phone [phone] Care Team Providers Care Noise Tester Name Role Phone Krystian Palomo MD Primary Care Provide r Reason for Visit * Reason Onset Date Comments Cirrhosis 10/21/2024 Encounter Details Date Type Department Care Team (Late st Contact Info) Description 10/21/2024 Telephone Gastroenterology, [facility] [address] [place] [address] Ren Pineda CRNP [address] [place] [address] Cirrhosis Allergies Active Allergy Reactions Criticality Noted [...] 07/05/2023 Hepatic encephalopathy 03/28/2022 Overview (12/06/2022): admitted [facility], ammonia 110 Aortic stenosis, moderate [...] file Not on file Not on file [employer] Not on file Not on file Not on file documented as of this encounter Miscellaneous Notes * Telephone Encounter - Linda Manuel CMA - 10/21/2024 2:12 PM EST [...] hospital [place] paperwork says torsemide 20mg BID. [facility] OP records don't list any diuretics. I'll make a recommendation once I know exactly what diuretic/s, dose and frequency he is currently taking. documented in this encounter Plan of Treatment Upcoming Encounters Date Type Department Care Team (Late st Contact Info) Description 10/28/2024 8:00 AM EST Office Visit Family Medicine [address] [place] [phone] Gaby Bey [address] [place] [address] 10/28/2024 8:30 AM EST Office Visit Pharmacy, [address] [place] [address] [place] [address] 11/14/2024 12:30 PM EST Imaging Radiology [address] [place] [address] 03/31/2025 4:00 PM EDT Office Visit Nephrology, [facility] [place] [address] Fernando Reina MD [address] [place] [address] 04/18/2025 10:30 AM EDT Office Visit Gastroenterology, [address] [place] [address] Ren Pineda CRNP 132 [facility] [place] [address] 09/11/2025 2:00 PM EST Imaging Radiology [address] [place] [id number] Scheduled Procedures Name Priority Associated Diagnoses Date/Ti [...] this encounter Medical Devices Implanted Type Area Commercial Fisherman Device Identifier Shelf Expiration Date Model / Serial / Lot Lipiodol Injection - [id number] Implanted:Qty: 1 on 08/02/2023 at [facility] [employer] 04/28/2026 23705-22 \[id number] Syr Pf 2ml Embospheres 100-300 - [id number] Implanted:Qty: 1 on 08/02/2023 at [facility] [employer] [id number] 02/26/2026 S220GH / / [id number] Syr Pf 2ml Embospheres 100-300 - [id number] Implanted:Qty: 1 on 04/11/2024 at [facility] [employer] [id number] 12/27/2026 S220GH / / [id number] Lipiodol Injection - [id number] Implanted:Qty: 1 on 04/11/2024 at [facility] [employer] [id number] documented as of this encounter Care Teams Noise Tester Relationship Specialty Start Date End Date Krystian Palomo MD [address] [place] [address] [place] [address] PCP - General Family Medicine 12/22/23 documented as of this encounter
--- OUTSIDE RECORDS SUMMARY | 2024-11-29 06:55 | External Medical Summary | Summary of Care ---
Author Name Unknown Organization [facility] Address [address] [facility] [place] [address] Phone [phone] Care Team Providers Care [employer] Principal Name Role Phone Krystian Palomo MD Primary Care Provide r Reason for Referral * Precert (Within 10 days (routine)) - Authorized Specialty Diagnoses / Procedures Referred By Contcharles t Referred To Contact Radiology Diagnoses Cirrhosis of liver with ascites, unspecified hepatic cirrhosis type (HCC) Procedures MRI LIVER W WO CONTRAST Ren Pineda CRNP [address] [place] [address] Phone: tel: fax: Referral ID Status Reason Start Date Expiration Date V isits Requested Visits Authorized [id number] Authorized Precert 10/18/2024 04/16/2025 999 999 Reason for Visit * Reason Comments Follow Up Pt here to f/u for c irrhosis/GONZALES. EGD 09/05/24. Encounter Details Date Type Department Care Team (Latest Contact Info) Description 10/18/2024 10:30 AM EST Office Visit Gastroenterology, [facility] [address] [place] [address] Ren Pineda CRNP [address] [place] [address] Cirrhosis of liver with ascites, unspecified hepatic cirrhosis type (HCC)*; Hepatic encephalopathy (HCC); Metabolic dysfunction-associated steatohepatitis (MASH) Allergies Active Allergy Reactions Criticality Noted Date Comments Aspirin 01/28/2022 Other reaction(s): bloody nose Salicylates 08/08/2001 nose bleeds documented as of this encounter (statuses as of 10/21/2024) Medications Multivitamin Adult Oral Tablet daily . 10/12/20 Active Vitamin C 1000 MG Oral Tablet daily . 10/12/20 Active Atorvastatin Calcium 20 MG Oral Tablet [...] the morning. In the morning.. 90 Tablet 07/04/20 24 Active Tamsulosin HCl 0.4 MG Oral Capsule (Flomax)Indication s:Urinary retention TAKE ONE CAPSULE BY MOUTH EVERY DAY 90 Capsule 1 07/04/20 24 Active rifAXIMin 550 MG Oral Tablet (Xifaxan)Indicatio [...] 2 Tablets before bedtime. 09/04/20 24 Active Dexcom G7 Sensor Use as directed every 10 days. DxE11.9 3 Each 3 09/12/20 24 Active Mupirocin 2 % External Ointment (Bactroban) Apply topically to affected area 3 times a day. At hospital discharge 22 g 1 10/02/20 24 Active Lactulose 10 GM/15ML Oral Solution (Constulose)Indica tions:Hepatic encephalopathy (HCC) Take 45 mL by mouth in the morning and 45 mL at noon and 45 mL before bedtime. 4050 mL 1 10/02/20 24 Active Amoxicillin-Pot Clavulanate 875-125 MG Oral Tablet (Augmentin) 1 Tablet in the morning and 1 Tablet before bedtime. 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 If paracentesis yields a total volume of more than 3 liters of fluid give 25% albumin as follows: 3 L - 5 L - Give 1 unit albumin (25 gm in 100 ml) 5 L - 7.5 L - Give 2 units albumin (25 gm in 100 ml x 2) 7.5 L - 12 L - Give 3 units albumin 100 mL 10/16/20 24 024 Disconti nued(Med ication List Clean Up) Furosemide 20 MG Oral Tablet (Lasix) Take 1 Tablet by mouth in the morning. 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 Not on file Not on file Not on file documented as of this encounter Last Filed Vital Signs Vital Sign Reading Time Taken Comments Blood Pressure 106/68 10/18/2024 10:02 AM EST Pulse 103 10/18/2024 10:02 AM EST Temperature 36.6 C (97.9 F) 10/18/2024 10:[address] Respiratory Rate - - Oxygen Saturation 100% 10/18/2024 10:02 AM EST Inhaled Oxygen Concentration - - Weight 110 kg (242 lb 6.4 oz) 10/18/2024 10:02 A M EST Height - - Body Mass Index 34.28 09/20/2024 8:40 AM EST documented in this encounter Progress Notes * Ren Pineda CRNP - 10/18/2024 10:07 AM EST CC: Cirrhosis w Hepatic Encephalopathy, ascites HPI: Recall that Mr. Lloyd Spencer is a 59 year old male pt of Stanford Mays MD with a hx of , obesity, DM-2, gout, hyperlipidemia, anaplasmosis (2019). He is a [facility] employee on disability for cirrhosis. Dx'ed in April 2021 when he presented w confusion. Began w ascites around Sep 2023, now managed w diuretics and paracenteses (usually Q 2 wks). Seeing liver transplant, not yet listed. Still in Card w/u, needing stress test (problems w scheduling/billing - pt planning to esme after Oct 30). 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 Most recent hospitalizations for ascites/pleural effusion/SOB in June and Aug 2024. Had hypotension at time of hospitalization in August. Xifaxin 550mg BID, Lactulose 45 gm po TID. Pt tells me he is taking only torsemide 20mg daily - no other diuretics. Reviewed hospital DC paperwork torsemide is listed as BID on hospital DC. Neuro: pt able to tell me the president, president elect, talk politics and tell me today's month, day and year. Complications: Liver lesions - post bland embolization CTAP w IV at [facility] 03/06/24: [facility] 1. There are scattered gas fluid [...] and washout, previously LR-5.No new suspicious lesions. CTAP at [facility] Jun 2024: Calcification in the posterior RIGHT hepatic lobe measures 2 cm. 1. Moderate abdominal ascites, which extends into an umbilical hernia. 2. Mild fluid-filled small bowel with mild wall thickening, concerning for mild enteritis versus spontaneous bacterial peritonitis. 3. Moderate LEFT pleural effusion. CTA chest at [facility] No2023: Liver: Cirrhotic liver. Calcifications within the right hepatic lobe measuring up to 2.3 cm. 1. No pulmonary embolism. 2. Moderate left pleural effusion. 3. Cirrhotic liver and ascites. Ascites: Current diuretic dosing: furosemide 40mg/spironolactone 100 daily Most recent paracentesis 01/24/24 removal of 5.5L U/S at [facility] 01/3024 w/o significant ascites to undergo paracentesis HCC [id number] liver lesion underwent bland embolization in Aug 2023, following w IR, has appt in [place] 06/18/24 Hepatic Encephalopathy: Hospitalized at [facility] on 02/28/24 for hepatic encephalopathy Rifaximin 550mg BID Lactulose [...] otherwise normal MELD 25 from labs at [facility] 2 wks ago: Na 127, Cr1.26, INR 1.5, T Bili 3.2 Cirrhosis of liver with ascites, unspecified hepatic cirrhosis type (HCC) (Primary) - CBC WITH WBC DIFFERENTIAL - COMPREHENSIVE METABOLIC PANEL - PT INR - MRI LIVER W WO CONTRAST; Future; Expected date: 10/18/2024 EXAM: BP 106/68 | Pulse 103 | Temp 36.6 C (97.9 F) | Wt 110 kg (242 lb 6.4 oz) | SpO2 100% | BMI 34.28 kg/m | BSA 2.34 m GENERAL: 59 year old male well developed and well nourished in no acute distress SKIN: no rashes, ulcers, or spider angiomata HEENT: normocephalic, sclera clear, pharynx normal NECK: supple, no lymphadenopathy, no masses or thyroid enlargement LUNGS: clear to auscultation anterior and posterior HEART: regular rate & rhythm, no murmurs and no gallops ABDOMEN: + mild ascites, normo-active bowel sounds, soft, non-tender, non- distended no masses, no hepatosplenomegaly, no rebound or guarding, no bruits EXTREMITIES: no palmar erythema, no edema, no skin discoloration, no clubbing, no cyanosis NEURO: no lateralizing findings, Sensory/Motor grossly normal IMPRESSION/RECOMMENDATIONS: 59 year old male with Cirrhosis of liver with ascites, unspecified hepatic cirrhosis type (HCC) (Primary)/Metabolic dysfunction-associated steatohepatitis (MASH) - CBC WITH WBC DIFFERENTIAL - COMPREHENSIVE METABOLIC PANEL - PT INR - MRI LIVER W WO CONTRAST; Future; Expected date: 10/18/2024 (mention of right lobe granuloma on last 2 MRIs at [facility] - would like to verify that this residual changes from prior HCC, not from currentC). - Pt tells me he is taking torsemide 20mg daily, would continue this. - Will have nursing reach outto him, have him get all his meds - read the pill bottles to the nurse so we are sure of what he istaking. He definitely should be on diuretics, though there is documentation of a low BP at the timeof last hospitalization. He is not tolerating diuretic well. - Low sodium diet stressed. - Most recent hospitalization records reviewed. Pt seems to be confused or there is inaccurate documentation regarding diuretic dosing/frequency and who is prescribing the torsemide. Hepatic encephalopathy (HCC) - Continue rifaxmin 550mg BID, lactulose 2-3x/day to affect 3 BMs/day. Continue f/u w liver transplant. MELD 3.0: 20 at 10/18/2024 10:51 AM Calculated from: Serum Creatinine: 1 mg/dL at 10/18/2024 10:51 AM Serum Sodium: 133 mmol/L at 10/18/2024 10:51 AM Total Bilirubin: 3.8 mg/dL at 10/18/2024 10:51 AM Serum Albumin: 3 g/dL at 10/18/2024 10:51 AM INR(ratio): 1.7 at 10/18/2024 10:51 AM Age at listing (hypothetical): 59 years Sex: Male at 10/18/2024 10:51 AM I spent a total of 40 minutes on the date of service in [...] Nursing Notes * Linda Manuel CMA - 10/18/2024 10:02 AM EST Chief Complaint Patient presents with Follow Up Pt here to f/u for cirrhosis/GONZALES. EGD 09/05/24. documented in this encounter Plan of Treatment Upcoming Encounters Date Type Department Care Team (Late st Contact Info) Description 10/28/2024 8:00 AM EST Office Visit Family Medicine [address] [place] [phone] Gaby Bey CRNP [address] [place] [address] [place] [address] 10/28/2024 8:30 AM EST Office Visit Pharmacy, [address] [place] [address] [place] [address] 11/14/2024 12:30 PM EST Imaging Radiology [facility] [address] [place] [address] 03/31/2025 4:00 PM EDT Office Visit Nephrology, Girish Mariee [address] [place] [address] [address] Fernando Reina MD [address] [place] [address] 04/18/2025 10:30 AM EDT Office Visit Gastroenterology, [address] [place] [address] Ren Pineda CRNP [address] [place] [address] 09/11/2025 2:00 PM EST Imaging Radiology [address] [place] [address] Scheduled Orders Name Type Priority Associated Diagnoses Orde r Schedule MRI LIVER W WO CONTRAST Medical Imaging Routine Cirrhosis of liver with ascites, unspecified hepatic cirrhosis type (HCC) Expected: 10/18/2024, Expires: 11/18/2025 Scheduled Procedures Name Priority Associated [...] this encounter Medical Devices Implanted Type Area Foot Worker Device Identifier Shelf Expiration Date Model / Serial / Lot Lipiodol Injection - [id number] Implanted:Qty: 1 on 08/02/2023 at [facility] Tray 04/28/2026 [id number] Syr Pf 2ml Embospheres 100-300 - [id number] Implanted:Qty: 1 on 08/02/2023 at [facility] BeDo [id number] 02/26/2026 [id number] / / [id number] Syr Pf 2ml Embospheres 100-300 - [id number] Implanted:Qty: 1 on 04/11/2024 at [facility] BeDo [id number] 12/27/2026 S220GH / / [id number] Lipiodol Injection - [id number] Implanted:Qty: 1 on 04/11/2024 at [facility] Tray [id number] documented as of this encounter Procedures Procedure Name Priority Date/Time Associated Diagnosis Comments DIFFERENTIAL, AUTOMATED Routine 10/18/2024 10:51 AM EST Cirrhosis of liver with ascites, unspecified hepatic cirrhosis type (HCC) COMPREHENSIVE METABOLIC PANEL Routine 10/18/2024 10:51 AM EST Cirrhosis of liver with ascites, unspecified hepatic cirrhosis type (HCC) CBC Routine 10/18/2024 10:51 AM EST Cirrhosis of liver with ascites, unspecified hepatic cirrhosis type (HCC) PT INR Routine 10/18/2024 10:51 AM EST Cirrhosis of liver with ascites, unspecified hepatic cirrhosis type (HCC) CBC Routine 10/18/2024 10:51 AM EST Cirrhosis of liver with ascites, unspecified hepatic cirrhosis type (HCC) documented in this encounter Results * (ABNORMAL) DIFFERENTIAL, AUTOMATED (10/18/2024 10:51 AM EST) WBC 5.31 4.00 - 10.80 K/uL 10/18/2024 11:12 AM EST [facility] Neutrophils % 65.6 40.0 - 75.0 % 10/18/2024 11:12 AM EST [facility] Lymphocytes % 11.1(L) 18.0 - 42.0 % 10/18/2024 11:12 AM EST [facility] Monocytes % 15.4(H) 1.0 - 11.0 % 10/18/2024 11:12 AM EST [facility] Eosinophils % 6.6(H) 0.0 - 6.0 % 10/18/2024 11:12 AM EST [facility] Basophils % 1.3 0.0 - 2.0 % 10/18/2024 11:12 AM EST [facility] Absolute Neutrophils 3.48 1.80 - 7.70 K/uL 10/18/2024 11:12 AM EST [facility] Absolute Lymphocytes 0.59(L) 1.00 - 4.80 K/ul 10/18/2024 11:12 AM EST [facility] Absolute Monocytes 0.82 0.00 - 1.10 K/uL 10/18/2024 11:[address] [facility] Absolute Eosinophils 0.35 0.00 - 0.70 K/uL 10/18/2024 11:12 AM EST [facility]10 Absolute Basophils 0.07 0.00 - 0.20 K/uL 10/18/2024 11:[address] [facility] Blood Venous blood specimen / Unknown Venipuncture / Unknown 10/18/2024 10:51 AM EST 10/18/2024 10:51 AM EST us Ren BALDERRAMA LAB BLOOD ORDERABLES Final Result [facility]10 [address] [place] [address] * (ABNORMAL) CBC (10/18/2024 10:51 AM EST) WBC 5.31 4.00 - 10.80 K/uL 10/18/2024 11:[address] [facility] RBC 2.73 4.50 - 5.25 M/uL 10/18/2024 11:[address] [facility] HGB 9.7(L) 14.0 - 16.8 g/dL 10/18/2024 11:[address] [facility] HCT 28.9(L) 40.0 - 48.4 % 10/18/2024 11:[address] [facility] MCV 105.9 82.0 - 99.5 fL 10/18/2024 11:12 AM EST [facility]10 MCH 35.5 27.0 - 34.0 pg 10/18/2024 11:[address] [facility] MCHC 33.6 32.0 - 36.0 g/dL 10/18/2024 11:[address] [facility] RDW 14.8 11.5 - 15.5 % 10/18/2024 11:[address] [facility] PLT 104(L) 140 - 400 K/uL 10/18/2024 11:12 AM EST [facility] MPV 10.6 6.6 - 11.1 fL 10/18/2024 11:12 AM EST [facility] Blood Venous blood specimen / Unknown Venipuncture / Unknown 10/18/2024 10:51 AM EST 10/18/2024 10:51 AM EST Ren BALDERRAMA LAB BLOOD ORDERABLES Final Result [facility] [facility] [place] [address] * (ABNORMAL) PT INR (10/18/2024 10:51 AM EST) Prothrombin Time 20.3(H) 11.6 - 15.2 seconds 10/18/2024 11:33 AM EST [facility] INR 1.7(H) 0.8 - 1.2 10/18/2024 11:33 AM EST [facility] Blood Venous blood specimen / Unknown Venipuncture / Unknown 10/18/2024 10:51 AM EST 10/18/2024 10:51 AM EST Narrative [facility] - 10/18/2024 11:33 AM EST Warfarin Therapy INR: 2.0-3.0 conventional anticoagulation INR: 2.5-3.5 high intensity anticoagulation Ren BALDERRAMA LAB BLOOD ORDERABLES Final Result [facility] [place] [address] * (ABNORMAL) COMPREHENSIVE METABOLIC PANEL (10/18/2024 10:51 AM EST) BUN 11 6 - 20 mg/dL 10/18/2024 12:19 PM EST [facility] CREATININE 1.0 0.6 - 1.2 mg/dL 10/18/2024 12:19 PM EST [facility] EGFR 88 >=60 mL/min 10/18/2024 12:19 PM EST [facility] Comment:eGFR is calculated b ased on the CKD-EPI 2020 equation. SODIUM 133(L) 135 - 146 mmol/L 10/18/2024 12:19 PM EST [facility] POTASSIUM 3.2(L) 3.5 - 5.1 mmol/L 10/18/2024 12:19 PM EST [facility] CHLORIDE 95(L) 98 - 107 mmol/L 10/18/2024 12:19 PM EST [facility] CO2 26 22 - 32 mmol/L 10/18/2024 12:19 PM EST [facility] ANION GAP 12 7 - 15 mmol/L 10/18/2024 12:19 PM EST [facility] GLUCOSE 148(H) 70 - 120 mg/dL 10/18/2024 12:19 PM EST [facility] Albumin 3.0(L) 3.8 - 5.0 g/dL 10/18/2024 12:19 PM EST [facility] AST 52(H) 10 - 50 U/L 10/18/2024 12:19 PM EST [facility] Alkaline Phosphatase 132(H) 35 - 130 U/L 10/18/2024 12:19 PM EST [facility] Bilirubin, Total 3.8(H) <=1.2 mg/dL 10/18/2024 12:19 PM EST [facility] CALCIUM 8.5 8.4 - 10.2 mg/dL 10/18/2024 12:19 PM EST [facility] Protein 6.4 6.0 - 8.3 g/dL 10/18/2024 12:19 PM EST [facility] ALT 25 10 - 50 U/L 10/18/2024 12:19 PM EST [facility] Blood Venous blood specimen / Unknown Venipuncture / Unknown 10/18/2024 10:51 AM EST 10/18/2024 10:51 AM EST Ren BALDERRAMA LAB BLOOD ORDERABLES Final Result [facility] [place] [facility]10 [address] [place] [address] documented in this encounter Visit Diagnoses Diagnosis Cirrhosis of liver with ascites, unspecified hepatic cirrhosis type (HCC)- Primary Hepatic encephalopathy (HCC) Hepatic encephalopathy Metabolic dysfunction-associated steatohepatitis (MASH) documented in this encounter Care Teams High [employer] Principal Relationship Specialty Start Date End Date Krystian Palomo MD [address] [place] [address] [place] [phone] PCP - General Family Medicine 12/22/23 documented as of this encounter"
[2024-11-29 07:04] LABS: Estimated Average Glucose 88 mg/dl; Hemoglobin A1C 4.7 % (4.5-5.6)
[2024-11-29 07:35] LABS: Albumin Peritoneal Fluid < 1.5 gm/dl
--- NOTE | 2024-11-29 07:37 | XRay Report ---
EXAM: XR chest 1V portable CLINICAL HISTORY: Hyponatremia. TECHNIQUE: An X-ray image of the chest was obtained in AP projection. COMPARISON: X-ray dated 09/01/2024. FINDINGS: Pulmonary Parenchyma: Exaggerated bronchovascular markings bilaterally. Ill-defined possible opacity at the left basal retrocardiac region. No focal lung lesions or consolidation. No evidence of pleural effusion or pleural thickening. Heart and Mediastinum: Heart size and shape are normal. No mediastinal widening or masses. No hilar or mediastinal lymphadenopathy. Bony Thorax: Bony thorax appears intact without fractures or deformities. Soft Tissues: Soft tissues overlying the chest wall are unremarkable. IMPRESSION: 1. Exaggerated bronchovascular markings bilaterally. 2. Ill-defined possible opacity at the left basal retrocardiac region. 3. No focal lung lesions or consolidation. 4. No significant interval changes. Electronically signed by Sheron Palomares 11-29-2024 07:37 AM
[2024-11-29 07:40] LABS: Total Protein Peritoneal Fluid < 3.0 gm/dl
[2024-11-29 08:11] LABS: Appearance Peritoneal Fluid Clear; Color Peritoneal Fluid Pale Yellow; Lymphocytes, Fluid 22 %; Mono,Macrophage,Mesothelial 74 %; Neutrophils, Fluid 4 %; RBC Peritoneal Fluid Auto < 2000 /uL; WBC Peritoneal Fluid Auto 67 /ul (0-300)
[2024-11-29] MEDS: POTASSIUM CHLORIDE CRTAB 20 MEQ TABCR PO ONE (08:11)
[2024-11-29] MEDS: 4.5GM X1 IV STA (08:11)
[2024-11-29] MEDS ORDERED: GLUCOSE 40% GEL 15 GM TUBE PO PRN (09:22)
[2024-11-29] MEDS ORDERED: CARBOHYDRATES FOR HYPOGLYCEMIA PO PRN (09:22)
[2024-11-29] MEDS ORDERED: GLUCAGON FOR INJ 1 MG VIAL SQ PRN (09:22)
[2024-11-29] MEDS ORDERED: DEXTROSE 50% 50 ML SYRINGE IV PRN (09:22)
[2024-11-29] MEDS ORDERED: GLUCOSE 10 TAB/TUBE PO PRN (09:22)
--- NOTE | 2024-11-29 11:01 | Ultrasound Report ---
LIMITED ABDOMINAL ULTRASOUND INDICATION: Request for paracentesis; large volume ascites leaking from umbilical hernia FINDINGS: Real-time ultrasound imaging in all 4 abdominal quadrants was performed. A scant amount of ascites was noted at the dome of the liver and left lower quadrant with surrounding intestine. Total estimated ascites is less than 500 mL. The attending surgeon was notified of the findings, and no par acentesis was performed. Plan is to reevaluate Monday for possible paracentesis. IMPRESSION: Scant ascites as detailed above. Plan for possible paracentesis Monday. Performed, dictated, and signed by Maximo Moore PA-C; to be co-signed by Dr. Demario Cuadra. Electronically signed by: Demario Cuadra M.D. 11/29/2024 4:16 PM
[2024-11-29] MEDS: LIDOCAINE 1%/EPINEPHRINE 1:100,000 50 ML VIAL INFIL ONE (12:03)
--- NOTE | 2024-11-29 12:15 | Communication Note ---
Date of Service: November 29, 2024 At the bedside the patient's umbilical region was prepped with povodine/iodine sticks x2. The skin surrounding the hole in the central umbilical skin was injected with 5cc of 1% lidocaine with epi. Then a 2-0 nylon suture was used to stitch up the hole in a figure of 8 fashion. After palpating the abdomen and epifanio-umbilical area there was no further leakage of fluid appreciated. Dermabond was utilized at the base of the stitch just for another barrier to prevent further leakage of ascitic fluid. The patient tolerated the procedure well. Plan for repeat evaluation for possible paracentesis on saturday 12/02. We will follow peripherally, please call with any questions/concerns.
[2024-11-29] MEDS: INSULIN ASPART PER UNIT CHARGE SC SCH (12:31)
[2024-11-29] MEDS: PIPERACILLIN/TAZOBACTAM 4.5 GM/100 ML BAG IV SCH (13:01)
[2024-11-29] MEDS: ALBUMIN 25% 25 GM/100 ML VIAL IV SCH (13:46)
[2024-11-29] MEDS: POTASSIUM CHLORIDE CRTAB 20 MEQ TABCR PO SCH (14:41)
[2024-11-29] MEDS: MAGNESIUM CHLORIDE W/CALCIUM 64MG DELAYED REL TAB PO SCH (14:42)
[2024-11-29] MEDS: LACTULOSE SYRUP 30 GM/45 ML UDP PO SCH (15:01)
[2024-11-29] MEDS: MIDODRINE HCL 2.5 MG TAB PO SCH (17:04)
[2024-11-29] MEDS: rifAXIMin 550 MG TABLET PO SCH (19:58)
[2024-11-29] MEDS: SODIUM CHLORIDE 1 GM TABLET PO SCH (19:58)
--- NOTE | 2024-11-30 04:57 | Surgery Progress Note ---
Date of Service November 30, 2024 Assessment & Plan (1) Hernia, umbilical: Plan: Patient has been admitted on the hospitalist service. From surgery perspective we recommend the following: Patient noted to have a hole in his skin/peritoneum at site of umbilical hernia draining ascitic fluid An outpatient paracentesis was scheduled yesterdayhe was evaluated by interventional radiology yesterday and he did not have adequate fluid to perform paracentesis (the majority of the fluid had drained through his umbilical hernia) Stitch has been placed to curtail any further drainage Patient has no signs of incarceration of his umbilical hernia or infection Plans are noted for repeat ultrasound on December 02 and consideration of another paracentesis Will defer management of the patient's underlying cirrhosis/ascites to the primary service Check a.m. labs when available As above. Patient looks good. No abdominal pain. The small pinhole at his umbilical hernia is no longer leaking. Okay from my standpoint for discharge when okay with primary service. He should resume his outpatient paracentesis every 10 days as he was doing previously. Admission and Anticipated Discharge Date Admission Date: November 29, 2024 Subjective Patient is resting comfortably in bed and states "I feel completely fine.". He specifically denies any fevers, shakes, or chills. He also specifically denies any abdominal pain specifically at his umbilical hernia site. He has no nausea or vomiting. Physical Exam Gastrointestinal (Abdomen): Abdomen is rotund but soft. There is no tympany to percussion. There is no pain with palpation and no rebound tenderness or guarding. Patient's umbilical hernia Was examined. This area is nontender to palpation. There are no overlying skin changes. A stitch has been placed in previous site of ascitic fluid drainage and is completely dry at the time of my exam. Results & Data Vital Signs (Past 12 Hours) Vital Signs Temp Pulse Resp BP Pulse Ox O2 Del Method 11/29/24 19:29 36.9 C 98 H 16 113/74 97 Room Air PG Care Time/CCT Total # of Minutes Spent Total Time Spent with Patient: Total time spent is greater than 50% in coordination of care (as documented) at patient's floor/unit and/or counseling patient: Coding Level of Care Code 52690 SUB INP/OBS CARE 11/23MIN Diagnoses Hernia, umbilical K42.9
[2024-11-30] MEDS: PANTOprazole 40 MG TAB PO SCH (05:23)
[2024-11-30 07:26] LABS: Hematocrit (blood only) 19.6 % (42.0-52.0); Hemoglobin 6.7 g/dl (14.0-18.0); Mean Corpuscular Hemoglobin 34.9 pg (25.0-34.0); Mean Corpuscular Hgb Conc 34.2 g/dL (32.0-36.0); Mean Corpuscular Volume 102.1 fL (80.0-100.0); RDW Coefficient of Variation 19.4 % (11.5-14.5); Red Blood Count 1.92 M/uL (4.70-6.10); White Blood Count 3.59 K/ul (4.8-10.8)
[2024-11-30 07:35] LABS: Albumin Globulin Ratio 1.2 (0.9-2); Albumin Level 2.9 gm/dl (3.4-5.0); BUN Creatinine Ratio 11.1 (10-20); Bilirubin,Total 4.4 mg/dl (0.2-1.0); Calcium 8.7 mg/dl (8.6-10.3); Creatinine Clr Calc Pharmacy 93.7 ml/min; Globulin 2.5 gm/dl (2.5-4.0); Magnesium 1.9 mg/dl (1.7-2.4); Phosphorus 2.1 mg/dl (2.5-4.9); Potassium 3.3 mmol/L (3.5-5.1); Total Protein 5.4 gm/dl (6.0-8.3)
[2024-11-30 07:46] LABS: Mean Platelet Volume 10.7 fL (9.4-12.4); Platelet Count 62 K/uL (130-400)
[2024-11-30] MEDS: TORSEMIDE 20 MG TAB PO SCH (08:02)
[2024-11-30 09:15] LABS: Basophils # (auto) 0.07 K/uL (0.00-0.20); Basophils % (auto) 1.9 %; Eosinophils # (auto) 0.22 K/uL (0.00-0.50); Eosinophils % (auto) 6.1 %; Immature Granulocytes # (auto) 0.02 K/uL (0.01-0.20); Immature Granulocytes % (auto) 0.6 %; Lymphocytes # (auto) 0.49 K/uL (1.20-3.40); Lymphocytes % (auto) 13.6 %; Monocytes # (auto) 0.78 K/uL (0.11-0.59); Monocytes % (auto) 21.7 %; Neutrophils # (auto) 2.01 K/uL (1.40-6.50); Neutrophils % (auto) 56.1 %
[2024-11-30 10:22] LABS: Hematocrit (blood only) 19.9 % (42.0-52.0); Hemoglobin 6.8 g/dl (14.0-18.0)
[2024-11-30] MEDS ORDERED: SODIUM CHLORIDE 0.9% 100 ML IV PRN (11:05)
[2024-11-30] MEDS ORDERED: SODIUM CHLORIDE 0.9% 50 ML IV PRN (11:05)
[2024-11-30 13:30] VITALS: O2SAT 100
[2024-11-30 14:15] VITALS: RESP 16
[2024-11-30 15:23] VITALS: PULSE 86
[2024-11-30 16:22] VITALS: TEMP 98.2
[2024-11-30 17:04] LABS: Hematocrit (blood only) 24.4 % (42.0-52.0); Hemoglobin 8.3 g/dl (14.0-18.0)
[2024-11-30 17:16] VITALS: BP 101/66
--- NOTE | 2024-11-30 17:30 | Discharge Summary ---
Date of Service November 30, 2024 Admission HPI Per Admitting Provider History obtained from patient and records. Medical history significant for moderate , hypotension on midodrine, hyperlipidemia, pulmonary hypertension, NAFLD cirrhosis, hepatocellular CA, left pleural effusion, DM2 insulin requiring, BPH, chronic hyponatremia, chronic pancytopenia (baseline hemoglobin 9-10), gout, thyroid nodule, umbilical hernia, past tobacco abuse. Last confinement August, for hepatic hydrothorax secondary to decompensated cirrhosis status post drainage. Midodrine dose increased on discharge for orthostasis. Incidental finding of neck mass on imaging later found to be a thyroid nodule. Benign goiter on outpatient biopsy by ENT. Periodic outpatient therapeutic paracentesis by [facility] [place] interventional radiologist every 1 to 2 weeks since leaving hospital. 7 liters drained on last visit 10 days ago. Outpatient GI provider agreeable to having procedure done every 10 days. Patient scheduled for outpatient drainage today. Patient noted clear fluid leakage from umbilical hernia yesterday. Achy abdominal pain without nausea, vomiting, fever, chills. No recollection of trauma. Denies chest pain, SOB. IV ceftriaxone administered at the ER. Medical History as above Surgical History : None Family History : DM, COPD, heart disease Personal/Social history : Past tobacco abuse, no EtOH intake, disabled Admission Exam Per Admitting Provider GENERAL: Comfortable, pleasant, obese, chronically ill, no respiratory distress SKIN: Pallor, warm HEENT: Pale palpebral conjunctivae, no ptosis, moist buccal mucosa NECK : Supple, l no tenderness CHEST : Decreased breath sounds, no tenderness HEART :RRR, systolic murmur ABDOMEN: Some distention, minimal tenderness over ostomy bag EXTREMITIES : Minimal LE swelling without LE tenderness, no other conspicuous deformities noted NEUROLOGIC : Coherent, no facial asymmetry, no other gross focality Principal Diagnosis Umbilical hernia, leakage of ascitic fluid Hx of cirrhosis, ascites Discharge Exam GENERAL: obese, chronically ill M in NAD HEENT: NC/AT, EOMI NECK : Supple CHEST : Decreased breath sounds, no tenderness HEART :RRR, systolic murmur ABDOMEN: nontender, soft, nondistended, umbilicus sutured EXTREMITIES : Minimal LE swelling, moves extremities NEUROLOGIC : Coherent, no facial asymmetry, speech fluent, answers appropriately, moves extremities SKIN: warm, dry Discharge Data Allergies Allergy/AdvReac Type Severity Reaction Status Date / Time aspirin AdvReac Intermediate NOSE Verified 11/29/24 07:29 BLEEDS--IF TAKES REGULARLY salicylates AdvReac Intermediate NOSE BLEEDS Verified 11/29/24 07:29 Consultations 11/29/24 05:20 ED Decision to Admit Stat Ordered Studies 11/29/24 08:00 US abdomen ltd ascites Routine FINDINGS: Real-time ultrasound imaging in all 4 abdominal quadrants was performed. A scant amount of ascites was noted at the dome of the liver and left lower quadrant with surrounding intestine. Total estimated ascites is less than 500 mL. The attending surgeon was notified of the findings, and no paracentesis was performed. Plan is to reevaluate Monday for possible paracentesis. IMPRESSION: Scant ascites as detailed above. Plan for possible paracentesis Monday. Hospital Course (1) Abdominal pain: Peritonitis unlikely - as pt has no sigs or symptoms, no abdominal pain. abdomen soft Spontaneous fluid leakage from patient's umbilical hernia hx recurrent ascites from decompensated NAFLD cirrhosis, outpatient therapeutic paracentesis scheduled today at [facility] [place] No sepsis for now Admitted to Medical floor Ascitic fluid analysis - no SBP General Surgery consulted - umbilicus was sutured IV albumin, Zosyn -> can stop now IR guided paracentesis for drainage - not enough fluid -> may try again on Wednesday 11/29 Discussed with surgery today at the bedside -> ok to discharge home Anemia- chronic - worsened this AM possibly d/t dilution - 1 unit of pRBC given - Hgb after 1 unit 8.3 moderate hypotension on midodrine pulmonary hypertension hepatocellular CA, periodic IR embolization at [facility] DM2 insulin requiring, current a1c 4.7%, recent hemoglobin A1c of 8.4 last March 2024 chronic hyponatremia, on sodium chloride tablets and diuretic Rx chronic pancytopenia secondary to cirrhosis, hemoglobin at baseline Recurrent hypokalemia secondary to diuretic, home insulin Rx, cont. supplement past tobacco abuse Total Time Total Time Spent Total Time Spent (In Minutes): 40 Discharge Plan Discharge Items Patient Disposition: Home - Self-Care Reason For Visit: ASCITIC FLUID LEAK Discharge Diagnosis: Umbilical hernia, leakage of ascitic fluid Hx of cirrhosis, ascites Activity: Per Instructions section Non-emergency contact: Primary Care Provider, Surgeon and Hot Top Liner Call non-emergency contact if: you have any medication questions and your symptoms worsen Follow-up/Referrals: Krystian Palomo MD [Primary Care Provider] - Diet: Carb Consistent or DM2 and Heart Healthy Ambulatory Orders: IR paracentesis abd w/img US (Routine) Timeframe: 20241202 Facility: [facility] - Location: [facility] Ordered By: Anju Loyola Attending Provider Instructions: Follow up with primary care doctor, chaser apprentice, surgeon and IR. Continue your home medications. You are scheduled for an outpatient paracentesis with Interventional Radiology at [facility] on Monday12/02/24 at 9am. Pending Studies at Discharge: Yes Studies:: results of cultx from peritoneal fluid Stand-Alone Forms: My [facility], Smoking Cessation Medications and DC Order Prescriptions: Continued allopurinol 300 mg Tablet 300 mg PO QAM Xifaxan 550 mg tablet 550 mg PO BID sodium chloride 1,000 mg tablet,soluble 1,000 mg BID torsemide 20 mg tablet 20 mg PO DAILY Rx Instructions: once in AM midodrine 2.5 mg Tablet 7.5 mg PO TIDM 30 Days Qty: 180 0RF Rx Instructions: pt unsure how often he's taking this potassium chloride 10 mEq tablet,ER particles/crystals 20 meq PO TID Qty: 180 0RF omeprazole 20 mg capsule,delayed release(DR/EC) 20 mg PO DAILYBB Rx Instructions: take 1 hour before firsts meal of the day lactulose 20 gram/30 mL solution 45 ml PO TID Rx Instructions: Adjust dose up or down to maintain 3-4 loose BMs per day insulin degludec 100 unit/mL (3 mL) insulin pen 10 unit SUBCUT AC mupirocin 2 % ointment 1 applic TOPICAL TID tamsulosin 0.4 mg capsule 0.4 mg PO DAILY (DME) Dexcom G7 Sensor Device MISCELLANEOUS magnesium chloride [Mag-Delay] 64 mg tablet,delayed release (DR/EC) 64 mg PO AC docusate sodium 100 mg capsule 100 mg PO 2XD atorvastatin 1 cap AC Rx Instructions: 20mg, 1 tab by mouth in am multivitamin 1 tab AC ascorbic acid (vitamin C) [Vitamin C] 1,000 mg Tablet 1 g PO 1XD Discharge Orders: Discharge Order (Routine); Ordered 11/30/24 Ordered By: Aamir Pearson Admission Data Admit Date/Time: 11/29/24 05:36 Attending Provider: Knab,Aamir F. Admit Provider: Joe Barnett Primary Care Provider: Krystian Palomo Other Providers: Joe Barnett Other Interventions: Discharge Summary Assessment (RN) Last Done: 11/30/24 17:15
== END 2024-11-30 18:26 | disposition home or self-care (01) | DRG 432 ==
LOC: ED 03:30 → INTOOBSV 05:36 → EDINP 05:36 → 3W 09:23

== ENCOUNTER 2024-12-05 03:22 | Observation (INO) ==
--- NOTE | 2024-12-05 03:41 | Emergency Department Note ---
Impression & Plan Abdominal ascites ADMIT ED Provider Note HPI: History obtained from patient. 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 Patient was here in the hospital with the same issue, he presented on 11/29 to the emergency room and was admitted. Patient had several sutures placed with overlying Dermabond on 2 separate occasions during his stay secondary to leakage of ascitic fluid from the skin defect over his umbilical hernia. Patient was ultimately discharged. Patient states earlier this evening he began to have leakage of fluid from the area again and the Dermabond seem to have loosened off of the skin. Patient denies any abdominal pain, denies any vomiting. On arrival here to the ED the patient is hemodynamically stable. He does have active clear fluid drainage from his umbilical wound on my initial assessment that appears consistent with ascites. ROS: - Per HPI Differential Diagnosis: SBP, acute on chronic leakage from abdominal wounds, sepsis, cellulitis, incarcerated umbilical hernia, amongst other potential pathologies. *Outpatient medications and allergy history reviewed. PE: General: Alert, no acute distress HEENT: Normocephalic, trachea midline Eyes: Extraocular eye movement is intact, no scleral erythema Pulmonary: Clear to auscultation bilaterally, no wheezing Cardio: Regular rate and rhythm GI: Abdomen is soft to palpation, there is moderate distention, central bulging consistent with umbilical hernia that is nontender to palpation : No suprapubic tenderness MSK: No evidence of trauma or malformation of the extremities, no edema Skin: No evidence of rash, skin defect overlying umbilical hernia with moderate active and continuous drainage of clear fluid from the wound, wound contains 2 overlying sutures with apparent Dermabond detached from the skin Neuro: Alert, no focal deficits Psychiatric: Cooperative INDEPENDENT INTERPRETATIONS: monitoring analyst: (As interpreted by myself): - An order was placed for continuous cardiac monitoring - Patient was noted to be in sinus rhythm with a rate of 92 Interventions provided in ED: -IV ceftriaxone Medical Decision Making: Shortly after the patient arrived IV was established and lab work obtained, patient was placed on monitoring analyst. I did attempt to evaluate the wound and I did remove 1 suture to remove the glue that was connecting the 2 sutures. Upon doing this there was an increase in the amount of drainage of ascites from the wound. Patient states that he went through a similar process last week when he was admitted to the hospital. At that time per chart review a colostomy bag with Mcmillan catheter attachment was placed to aid with drainage of ascites. Patient states when he gets a paracentesis he usually gets about 7 L removed. Given the amount of ascites that was draining, bag was placed, patient drained greater than 3 L of fluid while here in the ED. I do have concern given the continuous leakage of these had that he should be covered with IV antibiotics therefore he was ordered IV ceftriaxone and blood cultures were drawn. He does not have clinical findings of peritonitis on my exam. He denies any current pain. Patient will require likely general surgery consultation for repair of his wound when the ascites has adequately drained and the pressure is adequately reduced to assist with wound repair. This is similar to the process he went through last week according to review documentation. I discussed the patient's presentation with the on-call hospitalist, Dr. Hernandez, and the patient was placed for admission in stable condition with plan for general surgery consultation later today. I do not feel that urgent intervention is required on their part at this time. Consultants/Discussions held with other healthcare providers: -Hospitalist, Dr. Hernandez Disposition discussion held by myself with: -Patient Diagnosis: 1. Abdominal wound with leakage of ascites, acute 2. History of cirrhosis 3. Anemia, acute on chronic Disposition: Admission Chino Zuniga DO Emergency Medicine Past Med/Surg History Problem List (Updated 12/05/24 @ 05:32 by Chino Zuniga DO) Abdominal ascites (Acute) Hypoalbuminemia (Acute) Hypokalemia (Acute) Hernia, umbilical (Acute) Thyroid lesion Mass of soft tissue of neck Acute dyspnea (Acute) Pleural effusion (Acute) Pleural effusion Hypokalemia (Acute) Hypomagnesemia (Acute) Constipation (Acute) Abdominal pain (Acute) Hyponatremia Orthostatic hypotension Dizziness (Acute) Medical non-compliance (Acute) Hyperammonemia (Acute) Ascites (Acute) Urinary retention Cirrhosis (Acute) Morbid obesity Hepatic encephalopathy Liver cirrhosis secondary to WELLS (Acute) Thrombocytopenia Hyperlipidemia Gout Diabetes mellitus, type 2 NIDDM Medical History Ureterolithiasis Hepatocellular carcinoma s/p IR embolization Pulmonary hypertension Diabetes mellitus NAFLD (nonalcoholic fatty liver disease) Chronic hyponatremia Dizziness r/t the cirrhosis - using a cane at this time. "if i get up to fast". S/P abdominal paracentesis Fracture of rib of right side 2013 Anaplasmosis 2019 Acute hepatic encephalopathy Cardiac murmur HX Hypertension Right rib fracture hx ~. Surgical History History of esophagogastroduodenoscopy (EGD) History of colonoscopy Family History Mother History of colonoscopy Brother Family history of diabetes mellitus Brother Family history of diabetes mellitus Grandmother (Paternal) Family history of diabetes mellitus Other No family history of adverse response to anesthesia Social History Smoking Status: Never smoker Tobacco Type: Smokeless Tobacco (Dip or Chew) Second Hand Exposure: No; Do You Dip or Chew Tobacco: Yes; Hx Alcohol Use: No Hx Substance Use: No Preferred Language: Guinean Communication Ability: Effective Edm Operator Required: No Beliefs That Will Affect Care: None marital status: Single Current Living Situation: Family Current Living Situation Comment: With brother and mother Feels Safe at Home: Yes Assistive Devices: Cane and Walker Allergies Allergies Allergy/AdvReac Type Severity Reaction Status Date / Time aspirin AdvReac Intermediate NOSE Verified 11/29/24 07:29 BLEEDS--IF TAKES REGULARLY salicylates AdvReac Intermediate NOSE BLEEDS Verified 11/29/24 07:29 Home Meds Home Medications Medication Instructions Recorded Confirmed allopurinol 300 mg tablet 300 mg PO DAILY 12/05/24 12/05/24 ascorbic acid (vitamin C) 1,000 mg 1 g PO DAILY 12/05/24 12/05/24 tablet atorvastatin 20 mg PO DAILY 12/05/24 12/05/24 docusate sodium 100 mg capsule 100 mg PO BID PRN Constipation 12/05/24 12/05/24 insulin degludec 100 unit/mL (3 10 unit subcut DAILY 12/05/24 12/05/24 mL) subcutaneous pen lactulose 10 gram/15 mL oral 45 ml PO TID 12/05/24 12/05/24 solution magnesium chloride 64 mg 64 mg PO DAILY 12/05/24 12/05/24 (magnesium chloride) tablet,delayed release (Mag-Delay) midodrine 2.5 mg tablet 7.5 mg PO TID 12/05/24 12/05/24 mupirocin 2 % topical ointment 1 applic topical TID 12/05/24 12/05/24 omeprazole 20 mg capsule,delayed 20 mg PO DAILY 12/05/24 12/05/24 release potassium chloride 10 mEq 20 meq PO TID 12/05/24 12/05/24 tablet,extended release(part/cryst) rifaximin 550 mg tablet (Xifaxan) 550 mg PO BID 12/05/24 12/05/24 sodium chloride 1,000 mg soluble 1,000 mg PO BID 12/05/24 12/05/24 tablet tamsulosin 0.4 mg capsule 0.4 mg PO DAILY 12/05/24 12/05/24 torsemide 20 mg tablet 20 mg PO DAILY 12/05/24 12/05/24 Results & Data (ED) Vital Signs Vital Signs - 24 hr 12/05/24 03:13 12/05/24 03:13 12/05/24 03:29 Temperature 36.6 C Temperature Source Oral Pulse Rate 95 H Respiratory Rate 18 Respiratory Effort / Characteristics Non-Labored Non-Labored Respiratory Depth Normal Normal Blood Pressure 103/65 Blood Pressure Mean 78 Pulse Oximetry 98 Oxygen Delivery Method Room Air Room Air Sepsis Recent Fever Within 48 Hours No Sepsis New/Unexplained Change in Mental Status No Sepsis Action Taken by Nursing No Action Required 12/05/24 03:34 12/05/24 03:45 12/05/24 04:07 Temperature Temperature Source Pulse Rate 97 H Respiratory Rate Respiratory Effort / Characteristics Respiratory Depth Blood Pressure 105/57 L Blood Pressure Mean 78 Pulse Oximetry Oxygen Delivery Method Room Air Sepsis Recent Fever Within 48 Hours Sepsis New/Unexplained Change in Mental Status Sepsis Action Taken by Nursing 12/05/24 04:18 12/05/24 04:21 Temperature Temperature Source Pulse Rate 94 H 95 H Respiratory Rate 15 15 Respiratory Effort / Characteristics Respiratory Depth Blood Pressure Blood Pressure Mean Pulse Oximetry 94 Oxygen Delivery Method Sepsis Recent Fever Within 48 Hours Sepsis New/Unexplained Change in Mental Status Sepsis Action Taken by Nursing Laboratory Data 12/05/24 04:43 12/05/24 04:43 Lab Results 12/05/24 Range/Units 04:43 WBC 4.95 (4.8-10.8) K/ul RBC 2.24 L (4.70-6.10) M/uL Hgb 7.7 L (14.0-18.0) g/dl Hct 22.3 L (42.0-52.0) % MCV 99.6 (80.0-100.0) fL MCH 34.4 H (25.0-34.0) pg MCHC 34.5 (32.0-36.0) g/dL RDW Std Deviation 70.8 H (36.4-46.3) fL RDW Coeff of [place] 19.8 H (11.5-14.5) % Plt Count 66 L (130-400) K/uL MPV 11.0 (9.4-12.4) fL Immature Gran % (Auto) 0.6 % Neut % (Auto) 67.5 % Lymph % (Auto) 9.9 % [place] % (Auto) 17.2 % Eos % (Auto) 3.2 % Baso % (Auto) 1.6 % Neut # (Auto) 3.34 (1.40-6.50) K/uL Lymph # (Auto) 0.49 L (1.20-3.40) K/uL [place] # (Auto) 0.85 H (0.11-0.59) K/uL Eos # (Auto) 0.16 (0.00-0.50) K/uL Baso # (Auto) 0.08 (0.00-0.20) K/uL Immature Gran # (Auto) 0.03 (0.01-0.20) K/uL Sodium 130 L (136-145) mmol/L Potassium 3.7 (3.5-5.1) mmol/L Chloride 96 L (98-107) mmol/L Carbon Dioxide 28 (21-32) mmol/L Anion Gap 6 (3-11) BUN 15 (6-23) mg/dl Creatinine 0.90 (0.6-1.4) mg/dl Est Cr Clr Drug Dosing 112.0 ml/min eGFR 97.78 BUN/Creatinine Ratio 16.7 (10-20) Glucose 162 H (70-99(Fasting)) mg/dl Calcium 8.6 (8.6-10.3) mg/dl Total Bilirubin 3.3 H (0.2-1.0) mg/dl AST 54 H (13-39) U/L ALT 25 (7-52) U/L Alkaline Phosphatase 93 (34-104) U/L Total Protein 5.6 L (6.0-8.3) gm/dl Albumin 2.7 L (3.4-5.0) gm/dl Globulin 2.9 (2.5-4.0) gm/dl Albumin/Globulin Ratio 0.9 (0.9-2) Lipase 70 (11-82) U/L Administered Medications Discontinued Medications Ceftriaxone Sodium (Rocephin) 2,000 mg in 50 mls @ 100 mls/hr IV NOW STA Stop: 12/05/24 04:43 Last Admin: 12/05/24 04:57 Dose: 100 mls/hr Documented By: JAMAL Discharge Plan Visit Data Chief Complaint: Wound Stated Complaint: LEAKING FLUID FROM HERNIA ED Provider: Chino Zuniga Discharge Problem: Abdominal ascites Forms Stand Alone Forms: [facility] Prescriptions Prescriptions: No Action torsemide 20 mg tablet 20 mg PO DAILY tamsulosin 0.4 mg capsule 0.4 mg PO DAILY docusate sodium 100 mg capsule 100 mg PO BID PRN (Reason: Constipation) omeprazole 20 mg capsule,delayed release(DR/EC) 20 mg PO DAILY allopurinol 300 mg tablet 300 mg PO DAILY mupirocin 2 % ointment 1 applic TOPICAL TID midodrine 2.5 mg tablet 7.5 mg PO TID potassium chloride 10 mEq tablet,ER particles/crystals 20 meq PO TID lactulose 10 gram/15 mL solution 45 ml PO TID sodium chloride 1,000 mg tablet,soluble 1,000 mg PO BID magnesium chloride [Mag-Delay] 64 mg tablet,delayed release (DR/EC) 64 mg PO DAILY Xifaxan 550 mg tablet 550 mg PO BID insulin degludec 100 unit/mL (3 mL) insulin pen 10 unit SUBCUT DAILY ascorbic acid (vitamin C) 1,000 mg Tablet 1 g PO DAILY atorvastatin 20 mg 20 mg PO DAILY Referrals Referrals: Krystian Palomo MD [Primary Care Provider] -
[2024-12-05] MEDS: cefTRIAXone SODIUM 2,000 MG/50 ML BAG IV STA (04:57)
[2024-12-05 05:10] LABS: Basophils # (auto) 0.08 K/uL (0.00-0.20); Basophils % (auto) 1.6 %; Eosinophils # (auto) 0.16 K/uL (0.00-0.50); Eosinophils % (auto) 3.2 %; Hematocrit (blood only) 22.3 % (42.0-52.0); Hemoglobin 7.7 g/dl (14.0-18.0); Immature Granulocytes # (auto) 0.03 K/uL (0.01-0.20); Immature Granulocytes % (auto) 0.6 %; Lymphocytes # (auto) 0.49 K/uL (1.20-3.40); Lymphocytes % (auto) 9.9 %; Mean Corpuscular Hemoglobin 34.4 pg (25.0-34.0); Mean Corpuscular Hgb Conc 34.5 g/dL (32.0-36.0); Mean Corpuscular Volume 99.6 fL (80.0-100.0); Monocytes # (auto) 0.85 K/uL (0.11-0.59); Monocytes % (auto) 17.2 %; Neutrophils # (auto) 3.34 K/uL (1.40-6.50); Neutrophils % (auto) 67.5 %; Platelet Count 66 K/uL (130-400); RDW Coefficient of Variation 19.8 % (11.5-14.5); RDW Standard Deviation 70.8 fL (36.4-46.3); Red Blood Count 2.24 M/uL (4.70-6.10); White Blood Count 4.95 K/ul (4.8-10.8)
[2024-12-05 05:23] LABS: Albumin Globulin Ratio 0.9 (0.9-2); Albumin Level 2.7 gm/dl (3.4-5.0); BUN Creatinine Ratio 16.7 (10-20); Bilirubin,Total 3.3 mg/dl (0.2-1.0); Calcium 8.6 mg/dl (8.6-10.3); Globulin 2.9 gm/dl (2.5-4.0); Potassium 3.7 mmol/L (3.5-5.1); Total Protein 5.6 gm/dl (6.0-8.3)
[2024-12-05 05:32] LABS: INR 1.5 (0.9-1.1); Prothrombin Time 15.5 Seconds (9.0-12.0)
[2024-12-05 05:34] LABS: Polychromasia 1+
--- NOTE | 2024-12-05 05:35 | History & Physical Report ---
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 Patient currently getting paracentesis every 10 days. Patient was recently in the hospital for abdominal pain and spontaneous fluid leakage from patient's umbilical hernia. General surgery was consulted umbilicus was sutured. Was again leaking on December 02, 2024 in the IR suite and surgery again placed nylon suture and Dermabond at the base of the wound . Patient says today he noticed glue came out and started to drain again. Currently in the ER colostomy bag was placed over the leaking site with connection to Mcmillan catheter and seems drained about 3 L of fluid so far. Denies abdominal pain. Denies fevers. Having 1 or 2 bowel movements daily. He states regularly takes lactulose. Micturating okay. Denies any chest pain or shortness of breath currently. Currently no cough. No headache. No runny nose or sore throat. Hemodynamics are okay. He says ambulates with a cane. He lives with his mother and brother. Abdominal ascites Leaking from umbilical site Recurrent Patient recently in the hospital for similar problem and surgery was consulted and sutures were placed Surgery advised to get paracentesis quickly before the fluid buildup and supposed to get paracentesis on 12/06/2024 Started leaking again today In the ER colostomy bag placed to the umbilical site and connected to Mcmillan catheter and seems drained 3 L liters fluid so far. Will consult surgery Empiric Rocephin for now Close monitor 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 Continue home diuretics and lactulose and Xifaxan Follow-up with GI and hepatology Diabetes Seems on insulin Will consult pharmacy to help with insulin regimen Moderate aortic stenosis Pulmonary hypertension Follow-up with cardio History of hepatocellular carcinoma/liver lesions Status post band embolization MRI liver on 11/14/2024:1. Cirrhosis with portal hypertension. 2. Right hepatic lobe treatment zone with irregular peripheral enhancement, suggesting residual/recurrent tumor (LR-TR viable). 3. 1.6 cm right hepatic lobe lesion, suspicious for HCC (LR-4). 4. 1.9 cm questionable lesion in the left hepatic lobe with washout in the left hepatic lobe (LR-3), Recommend attention on follow-up. Needs follow-up. Chronic hyponatremia Salt tablets Sodium 130 today Follow labs Chronic pancytopenia due to liver cirrhosis Hemoglobin 7.7 and platelets 66 today Will monitor labs Recurrent hypokalemia secondary to diuretic use Continue home potassium supplements History of left hepatic hydrothorax History of gout On allopurinol BPH On Flomax Hyperlipidemia Seems on statin DVT prophylaxis SCDs Disposition Med/telemetry Full code. 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 Patient currently getting paracentesis every 10 days. Patient was recently in the hospital for abdominal pain and spontaneous fluid leakage from patient's umbilical hernia. General surgery was consulted umbilicus was sutured. Was again leaking on December 02, 2024 in the IR suite and surgery again placed nylon suture and Dermabond at the base of the wound . Patient says today he noticed glue came out and started to drain again. Currently in the ER colostomy bag was placed over the leaking site with connection to Mcmillan catheter and seems drained about 3 L of fluid so far. Denies abdominal pain. Denies fevers. Having 1 or 2 bowel movements daily. He states regularly takes lactulose. Micturating okay. Denies any chest pain or shortness of breath currently. Currently no cough. No headache. No runny nose or sore throat. Hemodynamics are okay. He says ambulates with a cane. He lives with his mother and brother. Past medical history. As mentioned above Past surgical history. Colonoscopy. EGD. IR biopsy. IR cancer chemoembolization. Social history. Quit smoking 2004. Chews tobacco. No alcohol use. No drug use. Family history. Mother had colon cancer. Hypertension. Father had diabetes. Emphysema. Hypertension. Black lung. Corneal transplant. Brother has pacemaker. Diabetes. Heart attack. Hypertension. Hyperlipidemia. Liver disease. Sister has rheumatoid arthritis. Allergies Allergy/AdvReac Type Severity Reaction Status Date / Time aspirin AdvReac Intermediate NOSE Verified 11/29/24 07:29 BLEEDS--IF TAKES REGULARLY salicylates AdvReac Intermediate NOSE BLEEDS Verified 11/29/24 07:29 Home Medications Medication Instructions Recorded Confirmed Type allopurinol 300 mg tablet 300 mg PO DAILY 12/05/24 12/05/24 History ascorbic acid (vitamin C) 1,000 mg 1 g PO DAILY 12/05/24 12/05/24 History tablet atorvastatin 20 mg PO DAILY 12/05/24 12/05/24 History docusate sodium 100 mg capsule 100 mg PO BID PRN Constipation 12/05/24 12/05/24 History insulin degludec 100 unit/mL (3 10 unit subcut DAILY 12/05/24 12/05/24 History mL) subcutaneous pen lactulose 10 gram/15 mL oral 45 ml PO TID 12/05/24 12/05/24 History solution magnesium chloride 64 mg 64 mg PO DAILY 12/05/24 12/05/24 History (magnesium chloride) tablet,delayed release (Mag-Delay) midodrine 2.5 mg tablet 7.5 mg PO TID 12/05/24 12/05/24 History mupirocin 2 % topical ointment 1 applic topical TID 12/05/24 12/05/24 History omeprazole 20 mg capsule,delayed 20 mg PO DAILY 12/05/24 12/05/24 History release potassium chloride 10 mEq 20 meq PO TID 12/05/24 12/05/24 History tablet,extended release(part/cryst) rifaximin 550 mg tablet (Xifaxan) 550 mg PO BID 12/05/24 12/05/24 History sodium chloride 1,000 mg soluble 1,000 mg PO BID 12/05/24 12/05/24 History tablet tamsulosin 0.4 mg capsule 0.4 mg PO DAILY 12/05/24 12/05/24 History torsemide 20 mg tablet 20 mg PO DAILY 12/05/24 12/05/24 History Past Med/Surg History Problem List (Updated 12/05/24 @ 05:32 by Chino Zuniga DO) Abdominal ascites (Acute) Hypoalbuminemia (Acute) Hypokalemia (Acute) Hernia, umbilical (Acute) Thyroid lesion Mass of soft tissue of neck Acute dyspnea (Acute) Pleural effusion (Acute) Pleural effusion Hypokalemia (Acute) Hypomagnesemia (Acute) Constipation (Acute) Abdominal pain (Acute) Hyponatremia Orthostatic hypotension Dizziness (Acute) Medical non-compliance (Acute) Hyperammonemia (Acute) Ascites (Acute) Urinary retention Cirrhosis (Acute) Morbid obesity Hepatic encephalopathy 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 "if i get up to fast". S/P abdominal paracentesis Fracture of rib of right side 2013 Anaplasmosis 2020 Acute hepatic encephalopathy Cardiac murmur HX Hypertension Right rib fracture hx ~. Surgical History History of esophagogastroduodenoscopy (EGD) History of colonoscopy Family History Mother History of colonoscopy Brother Family history of diabetes mellitus Brother Family history of diabetes mellitus Grandmother (Paternal) Family history of diabetes mellitus Other No family history of adverse response to anesthesia Social History Smoking Status: Never smoker Tobacco Type: Smokeless Tobacco (Dip or Chew) Second Hand Exposure: No; Do You Dip or Chew Tobacco: Yes; Hx Alcohol Use: No Hx Substance Use: No Preferred Language: Uzbek Communication Ability: Effective Machine Sewer Required: No Beliefs That Will Affect Care: None marital status: Single Current Living Situation: Family Current Living Situation Comment: With brother and mother Feels Safe at Home: Yes Assistive Devices: Cane and Walker Review of Systems Review of Systems: All systems reviewed & are unremarkable except as noted in HPI & below Physical Exam Physical Exam: General- Not in acute distress Head- atraumatic Eyes- PERRL. ENT- oropharynx clear Neck- supple, no JVD. Lungs- clear to auscultation no wheezing or crackles Heart- regular rhythm; ESM murmur in aortic area. no gallop, no rub appreciated Abdomen- normal bowel sounds, soft, nontender, colostomy bag placed over umbilical area Extremities- no pretibial edema, no erythema seen. Neuro- alert, oriented PERRL, no facial palsy; no dysarthria; moves extremities Results & Data Results & Data Vital Signs (Past 12 Hours) Vital Signs Temp Pulse Resp BP Pulse Ox O2 Del Method 12/05/24 04:21 95 H 15 94 12/05/24 04:18 94 H 15 12/05/24 04:07 105/57 L 12/05/24 03:45 Room Air 12/05/24 03:34 97 H 12/05/24 03:29 103/65 12/05/24 03:13 Room Air 12/05/24 03:13 36.6 C 95 H 18 98 Room Air Diagnostic Findings Laboratory Results WBC 4.95 K/ul (4.8-10.8) 12/05/24 04:43 RBC 2.24 M/uL (4.70-6.10) L 12/05/24 04:43 Hgb 7.7 g/dl (14.0-18.0) L 12/05/24 04:43 Hct 22.3 % (42.0-52.0) L 12/05/24 04:43 MCV 99.6 fL (80.0-100.0) 12/05/24 04:43 MCH 34.4 pg (25.0-34.0) H 12/05/24 04:43 MCHC 34.5 g/dL (32.0-36.0) 12/05/24 04:43 RDW Std Deviation 70.8 fL (36.4-46.3) H 12/05/24 04:43 RDW Coeff of Polo 19.8 % (11.5-14.5) H 12/05/24 04:43 Plt Count 66 K/uL (130-400) L 12/05/24 04:43 MPV 11.0 fL (9.4-12.4) 12/05/24 04:43 Immature Gran % (Auto) 0.6 % 12/05/24 04:43 Neut % (Auto) 67.5 % 12/05/24 04:43 Lymph % (Auto) 9.9 % 12/05/24 04:43 Toole % (Auto) 17.2 % 12/05/24 04:43 Eos % (Auto) 3.2 % 12/05/24 04:43 Baso % (Auto) 1.6 % 12/05/24 04:43 Neut # (Auto) 3.34 K/uL (1.40-6.50) 12/05/24 04:43 Lymph # (Auto) 0.49 K/uL (1.20-3.40) L 12/05/24 04:43 Toole # (Auto) 0.85 K/uL (0.11-0.59) H 12/05/24 04:43 Eos # (Auto) 0.16 K/uL (0.00-0.50) 12/05/24 04:43 Baso # (Auto) 0.08 K/uL (0.00-0.20) 12/05/24 04:43 Immature Gran # (Auto) 0.03 K/uL (0.01-0.20) 12/05/24 04:43 Polychromasia 1+ 12/05/24 04:43 PT 15.5 Seconds (9.0-12.0) H 12/05/24 04:30 INR 1.5 (0.9-1.1) H 12/05/24 04:30 Sodium 130 mmol/L (136-145) L 12/05/24 04:43 Potassium 3.7 mmol/L (3.5-5.1) 12/05/24 04:43 Chloride 96 mmol/L (98-107) L 12/05/24 04:43 Carbon Dioxide 28 mmol/L (21-32) 12/05/24 04:43 Anion Gap 6 (3-11) 12/05/24 04:43 BUN 15 mg/dl (6-23) 12/05/24 04:43 Creatinine 0.90 mg/dl (0.6-1.4) 12/05/24 04:43 Est Cr Clr Drug Dosing 112.0 ml/min 12/05/24 04:43 eGFR 97.78 12/05/24 04:43 BUN/Creatinine Ratio 16.7 (10-20) 12/05/24 04:43 Glucose 162 mg/dl (70-99(Fasting)) H 12/05/24 04:43 Calcium 8.6 mg/dl (8.6-10.3) 12/05/24 04:43 Total Bilirubin 3.3 mg/dl (0.2-1.0) H 12/05/24 04:43 AST 54 U/L (13-39) H 12/05/24 04:43 ALT 25 U/L (7-52) 12/05/24 04:43 Alkaline Phosphatase 93 U/L (34-104) 12/05/24 04:43 Total Protein 5.6 gm/dl (6.0-8.3) L 12/05/24 04:43 Albumin 2.7 gm/dl (3.4-5.0) L 12/05/24 04:43 Globulin 2.9 gm/dl (2.5-4.0) 12/05/24 04:43 Albumin/Globulin Ratio 0.9 (0.9-2) 12/05/24 04:43 Lipase 70 U/L (11-82) 12/05/24 04:43 Code Status & VTE Plan VTE Prophylaxis Plan VTE Prophylaxis will be ordered: Yes
--- OUTSIDE RECORDS SUMMARY | 2024-12-05 06:16 | External Medical Summary | Summary of Care ---
Author Name Unknown Organization [facility] Address [address] [place] [address] Phone [phone] Care Team Providers Care Incising Machine Operator Name Role Phone Krystian Palomo MD Primary Care Provide r Reason for Visit * Reason Onset Date Comments Appointment 12/04/2024 IR Encounter Details Date Type Department Care Team (Late st Contact Info) Description 12/04/2024 Telephone Radiology, [place] [address] [place] [address] Amrit Magaña MD [address] [place] [address] Appointment (IR) Allergies Active Allergy Reactions Criticality Noted Date Comments Aspirin 01/28/2022 Other reaction(s): bloody nose Salicylates 08/08/2001 nose bleeds documented as of this encounter (statuses as of 12/04/2024) Medications Multivitamin Adult Oral Tablet daily . [...] 3 Tablets in the evening. 4 Active Torsemide 20 MG Oral Tablet [...] before bedtime. 4050 mL 1 5 Active Potassium Chloride Maryam ER 10 MEQ Oral Tablet Extended ReleaseIndications: Low serum potassium Take 2 Tablets by mouth in the morning and 2 Tablets at noon and 2 Tablets before bedtime. 180 Tablet 1 5 Active Insulin Degludec 100 UNIT/ML Subcutaneous Solution Pen-injector (Tresiba FlexTouch)Indicatio ns:Type 2 diabetes mellitus with hemoglobin A1c goal of less than 7.0% (HCC) Inject 10 Units under the skin in the morning. 3 mL 2 5 Active documented as of this encounter (statuses as of 12/04/2024) Active Problems Problem Noted Date Diagnosed Date BPH without obstruction/lower urinary tract symp toms 12/22/2023 BMI 36.0-36.9,adult 10/24/2023 Overview (10/24/2023): 266 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 07/05/2023 Hepatic encephalopathy 03/28/2022 Overview (12/06/2022): admitted [facility], [...] as of this encounter (statuses as of 12/04/2024) Resolved Problems Problem Noted Date Diagnosed Date [...] as of this encounter (statuses as of 12/04/2024) Immunizations Name Administration Dates Next Due COVID-19 [...] file Not on file Not on file 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 TRAINER Not on file Not on file Not on file documented as of this encounter Plan of Treatment Upcoming Encounters Date Type Department Care Team (Late st Contact Info) Description 12/05/2024 11:20 AM EST Office Visit Family Medicine [address] [place] [phone] Krystian Palomo MD [address] [place] [address] [place] [address] 12/26/2024 9:00 AM EST Office Visit Pharmacy, [address] [place] [phone] [place] [address] 03/20/2025 10:30 AM EDT Office Visit Cardiology, [facility] [address] [place] [address] Chino Carrillo PA-C [address] [place] [address] 03/31/2025 4:00 PM EDT Office Visit Nephrology, [facility] [address] [place] [address] Fernando Reina MD [address] [place] [address] 04/18/2025 10:30 AM EDT Office Visit Gastroenterology, [facility] [address] [place] [address] Ren Pineda CRNP [address] [place] [address] 06/02/2025 10:00 AM EDT Office Visit Family Medicine [address] [place] [phone] Krystian Palomo MD [address] [place] [address] [place] [address] 09/11/2025 2:00 PM EST Imaging Radiology [address] [place] [address] Scheduled Procedures Name Priority Associated Diagnoses Date/Ti [...] this encounter Medical Devices Implanted Type Area Microbiology Professor Device Identifier Shelf Expiration Date Model / Serial / Lot Lipiodol Injection - [id number] Implanted:Qty: 1 on 08/02/2023 at [facility] [employer] 04/28/2026 52970-17 [id number] Syr Pf 2ml Embospheres 100-300 - [id number] Implanted:Qty: 1 on 08/02/2023 at [facility] [employer] [id number] 02/26/2026 S220GH / / [id number] Syr Pf 2ml Embospheres 100-300 - [id number] Implanted:Qty: 1 on 04/11/2024 at [facility] [employer] [id number] 12/27/2026 S220GH / / [id number] Lipiodol Injection - [id number] Implanted:Qty: 1 on 04/11/2024 at [facility] [employer] [id number] documented as of this encounter Care Teams Incising Machine Operator Relationship Specialty Start Date End Date Krystian Palomo MD [address] [place] [address] [place] [phone] PCP - General Family Medicine 12/22/23 documented as of this encounter
--- OUTSIDE RECORDS SUMMARY | 2024-12-05 06:16 | External Medical Summary | Summary of Care ---
Author Name Unknown Organization [facility] Address [address] [facility] [place] [address] Phone [phone] Care Team Providers Care Starch Mangle Tender Name Role Phone Krystian Palomo MD Primary Care Provide r Reason for Visit * Reason Onset Date Comments Hospital Follow-Up 12/02/2024 ISSA for [facility] x1 appointment HD appointment 12/05 Encounter Details Date Type Department Care Team (Late st Contact Info) Description 12/02/2024 Telephone [address] [place] [phone] Analia Maldonado, ELOISE Hospital Follow-Up (ISSA for [facility] x1 appoin... Allergies Active Allergy Reactions Criticality Noted Date [...] and 45 mL before bedtime. 4050 mL 5 Active Potassium Chloride Maryam ER 10 [...] 07/05/2023 Hepatic encephalopathy 03/28/2022 Overview (12/06/2022): admitted [facility], ammonia 110 Aortic [...] file Not on file Not on file SPEECH SCIENTIST Not on file Not on file Not on file documented as of this encounter Miscellaneous Notes * Telephone Encounter - Analia Maldonado RN - 12/03/2024 3:23 PM EST Attempted Phone Call Second Attempt Call Outcome Left Voicemail/Message And confirmed appointment 12/05/24 at 1120 * Telephone Encounter - Analia Maldonado RN - 12/02/2024 12:46 PM EST Transitions of Care Note Reason for Referral:Recent Admission Phone visit for follow up: issa Admitted to: [facility], Date: 11.29.24 Discharged to: home , Date: 11.30.24 Diagnosis driving hospitalization: Umbilical hernia, leakage of ascitic fluid Hx of cirrhosis, ascites outpatient therapeutic paracentesis scheduled today at [facility] 1 unit of pRBC given - Hgb after 1 unit 8.3 Attempted Phone Call First Attempt Call Outcome Left Voicemail/Message documented in this encounter Plan of Treatment Upcoming Encounters Date Type Department Care Team (Late st Contact Info) Description 12/05/2024 11:20 AM EST Office Visit Family Medicine [address] [place] [phone] Krystian Palomo MD [address] [place] [address] [place] [phone] 12/26/2024 9:00 AM EST Office Visit Pharmacy, [address] [place] [address] [place] [address] 03/20/2025 10:30 AM EDT Office Visit [facility], [facility] [place] [address] Chino Carrillo PA-C [address] [facility] [place] [address] 03/31/2025 4:00 PM EDT Office Visit Nephrology, [facility] [place] [address] Fernando Reina MD [address] [place] [address] 04/18/2025 10:30 AM EDT Office Visit Gastroenterology, [facility] [place] [address] Ren Pineda CRNP [address] [place] [address] 06/02/2025 10:00 AM EDT Office Visit Family Medicine [address] [place] [phone] Krystian Palomo MD [address] [place] [address] [place] [address] 09/11/2025 2:00 PM EST Imaging Radiology [address] [place] [address] Scheduled Procedures Name Priority Associated Diagnoses Date/Ti [...] 04/19/2024, 0 05/2024, 09/18/2023, Additional history exists Depression Screening 09/09/2025 09/09/2024 GFR 11/19/2025 11/19/2024, 05/2025, 10/18/2024, Additional history exists Lipid Panel [...] this encounter Medical Devices Implanted Type Area Executive Officer Special Warfare Team Device Identifier Shelf Expiration Date Model / Serial / Lot Lipiodol Injection - [id number] Implanted:Qty: 1 on 08/02/2023 at [facility] [employer] 04/28/2026 [id number] Syr Pf 2ml Embospheres 100-300 - [id number] Implanted:Qty: 1 on 08/02/2023 at [facility] [employer] [id number] 02/26/2026 S220GH / / [id number] Syr Pf 2ml Embospheres 100-300 - [id number] Implanted:Qty: 1 on 04/11/2024 at [facility] [employer] [id number] 12/27/2026 S220GH / / [id number] Lipiodol Injection - [id number] Implanted:Qty: 1 on 04/11/2024 at [facility] [employer] [id number] documented as of this encounter Care Teams Starch Mangle Tender Relationship Specialty Start Date End Date Krystian Palomo MD [address] [place] [address] [place] [phone] PCP - General Family Medicine 12/22/23 documented as of this encounter
[2024-12-05] MEDS ORDERED: NITROGLYCERIN SL 0.4 MG/TAB TAB SL PRN (06:18)
[2024-12-05] MEDS ORDERED: PHARMACY GLYCEMIC MGMT CONSULT PRN (06:18)
[2024-12-05] MEDS ORDERED: DEXTROSE 50% 50 ML SYRINGE IV PRN (06:18)
[2024-12-05] MEDS ORDERED: GLUCOSE 10 TAB/TUBE PO PRN (06:18)
[2024-12-05] MEDS ORDERED: GLUCAGON FOR INJ 1 MG VIAL SQ PRN (06:18)
[2024-12-05] MEDS ORDERED: DOCUSATE SODIUM 100 MG CAP PO PRN (06:18)
[2024-12-05] MEDS ORDERED: GLUCOSE 40% GEL 15 GM TUBE PO PRN (06:18)
[2024-12-05] MEDS ORDERED: CARBOHYDRATES FOR HYPOGLYCEMIA PO PRN (06:18)
--- OUTSIDE RECORDS SUMMARY | 2024-12-05 06:34 | External Medical Summary | Summary of Care ---
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 External Where Will The Procedure Be Performed? Non-[facility] Comments Please enter the reason for consult: Cirrhosis w HCC. SBRT to liver lesion segment 7 Are outside images available?: Yes - Images available in [employer] and [employer] Reason for Visit * Reason Onset Date Comments Referral 12/04/2024 Referred to [facility] Radiation Oncology for SBRT HCC segment 7. Encounter Details Date Type Department Care Team (Late st Contact Info) Description 12/04/2024 Telephone Gastroenterology, [facility] [place] [address] [place] [address] Ren Pineda CRNP [address] [place] [address] Referral (Referred to [facility] Radiation Oncol... Allergies Active Allergy Reactions Criticality Noted Date Comments Aspirin 01/28/2022 Other reaction(s): bloody nose Salicylates 08/08/2001 nose bleeds documented as of this encounter (statuses as of 12/05/2024) Medications Multivitamin Adult Oral Tablet daily . [...] as of this encounter (statuses as of 12/05/2024) Active Problems Problem Noted Date Diagnosed Date BPH without obstruction/lower urinary tract symp toms 12/22/2023 BMI 36.0-36.9,adult 10/24/2023 Overview (10/24/2023): 266 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 07/05/2023 Hepatic encephalopathy 03/28/2022 Overview (12/06/2022): admitted [facility], ammonia 110 Aortic stenosis, moderate [...] as of this encounter (statuses as of 12/05/2024) Resolved Problems Problem Noted Date Diagnosed Date [...] as of this encounter (statuses as of 12/05/2024) Immunizations Name Administration Dates Next Due COVID-19 [...] file Not on file Not on file 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 T BIli 3.3, Cr 0.94, Na 127, INR 1.6. Being evaluated by liver transplant; listed being held up by need for echocardiogram for . Completed Nov 14 - appears to need to be interpreted, will contact cardiology asking to expedite results. Reviewed bland embolization to right lob tumor segment 05 April 2024 and July 2023. March 2024, noted a tumor in segment 5 that wasn't tx due to Bili 3 at that time. Reviewed MRI 1.6 cm R lobe lesion LR-4; 1.9 cm questionable left hepatic lobe lesion LR-3 UNOS MELD 12/03/24: 24 AFP13.4 Recommend SBRT of lesion in segment 7 as bridge to transplant. If unable to travel to [place], could arrange w Dr. Oleary at [facility] Radiation oncology. Called the pt, explained that he has a liver cancer, like previously treated, and that the tumor board members reviewed the films and recommend radiation to this lesion, as a bridge to transplant. Given option of [place] or [facility]. Pt not able to get transporation to [place]. He prefers [facility]. Will contact the office of Dr. Oleary, radiation oncologist at [facility] tomorrow asking him to review, see pt and consider arranging SBRT. Pt told to call back to our office if he hasn't been contacted by Dr. Oleary's office in the next week. GI nurses, please fax this note, referral order, Nov [address] Oleary in the interventional radiology office at [facility]. documented in this encounter Plan of Treatment Upcoming Encounters Date Type Department Care Team (Late st Contact Info) Description 12/05/2024 11:20 AM EST Office Visit Family [address] [place] [phone] Krystian Palomo MD [address] [place] [address] [place] [address] 12/26/2024 9:00 AM EST Office Visit Pharmacy, [address] [place] [address] [place] [address] 03/20/2025 10:30 AM EDT Office Visit Cardiology, [facility] [place] [address] [place] [address] Chino Carrillo PA-C [address] [place] [address] 03/31/2025 4:00 PM EDT Office Visit Nephrology, [facility] [address] [place] [address] Fernando Reina MD [address] [place] [address] 04/18/2025 10:30 AM EDT Office Visit Gastroenterology, [facility] [place] [address] [place] [address] Ren Pineda CRNP [address] [place] [address] 06/02/2025 10:00 AM EDT Office Visit Family Medicine [address] [place] [phone] Krystian Palomo MD [address] [place] [address] [place] [address] 09/11/2025 2:00 PM EST Imaging Radiology [address] [place] [address] Scheduled Procedures Name Priority Associated Diagnoses Date/Ti me ESOPHAGOGASTRODUODENOSCOPY ( EGD), FLEXIBLE, TRANSORAL, DIAGNOSTIC Recall Portal hypertensive gastropathy (HCC) COLONOSCOPY FLEXIBLE PROXIMAL DIAGNOSTIC Recall Family history of colon cancer Scheduled Referrals Name Type Priority Associated Diagnoses Orde r Schedule INTERVENTIONAL RADIOLOGY REFERRAL OP Referral Within 10 days (routine) Cancer, hepatocellular (HCC) 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) Ordered: 12/04/2024 Health Maintenance Due Date Last Done Comments [...] this encounter Medical Devices Implanted Type Area Section Housekeeper Device Identifier Shelf Expiration Date Model / Serial / Lot Lipiodol Injection - [id number] Implanted:Qty[facility]/2026 [id number] Syr Pf 2ml Embospheres 100-300 - [id number] Implanted:Qty: 1 on 08/02/2023 at [facility] [employer] [id number] 02/26/2026 S220GH / / [id number] Syr Pf 2ml Embospheres 100-300 - [id number] Implanted:Qty: 1 on [facility]11/2024 [facility] [employer] [id number] 12/27/2026 S220GH / / [id number] Lipiodol Injection - [id number] Implanted:Qty: 1 on 04/11/2024 at [facility] [employer] [id number] documented as of this encounter Visit Diagnoses Diagnosis Cancer, hepatocellular (HCC)- Primary Malignant neoplasm of liver, primary 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
[2024-12-05 07:28] LABS: Basophils # (auto) 0.08 K/uL (0.00-0.20); Basophils % (auto) 1.7 %; Eosinophils # (auto) 0.16 K/uL (0.00-0.50); Eosinophils % (auto) 3.3 %; Hematocrit (blood only) 21.9 % (42.0-52.0); Hemoglobin 7.5 g/dl (14.0-18.0); Immature Granulocytes # (auto) 0.04 K/uL (0.01-0.20); Immature Granulocytes % (auto) 0.8 %; Lymphocytes # (auto) 0.51 K/uL (1.20-3.40); Lymphocytes % (auto) 10.6 %; Mean Corpuscular Hemoglobin 33.9 pg (25.0-34.0); Mean Corpuscular Hgb Conc 34.2 g/dL (32.0-36.0); Mean Corpuscular Volume 99.1 fL (80.0-100.0); Mean Platelet Volume 10.7 fL (9.4-12.4); Monocytes % (auto) 18.7 %; Neutrophils # (auto) 3.13 K/uL (1.40-6.50); Neutrophils % (auto) 64.9 %; Platelet Count 62 K/uL (130-400); RDW Coefficient of Variation 19.6 % (11.5-14.5); RDW Standard Deviation 69.5 fL (36.4-46.3); Red Blood Count 2.21 M/uL (4.70-6.10); White Blood Count 4.82 K/ul (4.8-10.8)
[2024-12-05 07:42] LABS: Albumin Level 2.6 gm/dl (3.4-5.0); BUN Creatinine Ratio 19.2 (10-20); Bilirubin,Total 3.2 mg/dl (0.2-1.0); Calcium 8.4 mg/dl (8.6-10.3); Creatinine Clr Calc Pharmacy 129.2 ml/min; Magnesium 1.8 mg/dl (1.7-2.4); Potassium 3.4 mmol/L (3.5-5.1); Total Protein 5.2 gm/dl (6.0-8.3)
[2024-12-05 07:46] LABS: RBC Morphology Unremarkable
[2024-12-05] MEDS: INSULIN ASPART PER UNIT CHARGE SC SCH ×2 (08:25→18:19)
[2024-12-05] MEDS ORDERED: LANTUS PER UNIT CHARGE SC SCH (09:00)
[2024-12-05] MEDS: MIDODRINE HCL 2.5 MG TAB PO SCH (10:10)
[2024-12-05] MEDS: MAGNESIUM CHLORIDE W/CALCIUM 64MG DELAYED REL TAB PO SCH (10:10)
[2024-12-05] MEDS: ASCORBIC ACID 500 MG TAB PO SCH (10:11)
[2024-12-05] MEDS: rifAXIMin 550 MG TABLET PO SCH (10:11)
[2024-12-05] MEDS: allopurinoL 300 MG TAB PO SCH (10:11)
[2024-12-05] MEDS: SODIUM CHLORIDE 1 GM TABLET PO SCH (10:11)
[2024-12-05] MEDS: LACTULOSE SYRUP 30 GM/45 ML UDP PO SCH (10:12)
[2024-12-05] MEDS: TAMSULOSIN HCL 0.4 MG CAP PO SCH (10:12)
[2024-12-05] MEDS: TORSEMIDE 20 MG TAB PO SCH (10:12)
[2024-12-05] MEDS: PANTOprazole 40 MG TAB PO SCH (10:12)
[2024-12-05] MEDS: POTASSIUM CHLORIDE CRTAB 20 MEQ TABCR PO SCH (10:16)
--- NOTE | 2024-12-05 10:34 | Pharmacy Report ---
Pharmacy Glycemic Short Note 2 - Date of Service December 05, 2024 - Glycemic Short BSG Results (Last 24 hours): 12/05/24 12/05/24 12/05/24 04:43 07:05 08:00 Glucose 162 H 157 H POC Glucose 157 H OUTPATIENT ANTIDIABETIC REGIMEN: * degludec 10 units daily ASSESSMENT: * 59 year old admitted with abdominal ascites. NPO this AM - pharmacy consulted for glycemic management. BSG 157 mg/dL this AM, will continue novolog for now, hold basal. Will consider resuming basal once diet ordered or sooner if BSGs trend upward today. PLAN FOR INPATIENT GLYCEMIC CONTROL: * Hold outpatient oral diabetes medications * Basal insulin * Lantus - hold * Bolus insulin * NovoLog per scale ACHS or Q6hrs while NPO * Goal Range: Low 110 mg/dL - High 140 mg/dL * Correction Factor: 20 mg/dL/unit * Nutritional / Prandial insulin per carb ratio of 1 unit per 7 grams CHO consumed
[2024-12-05 11:16] LABS: Appearance Urine Clear (Clear); Bacteria Urine Automated None Seen (None Seen); Bilirubin Urine Negative (Negative); Blood Urine Negative (Negative); Cast Urine Automated 0-2 /lpf (0-2); Color Urine Dark Yellow; Epithelial Cell Urine Auto 0-2 /hpf (0-2); Glucose Urine UA Negative (Negative); Ketones Urine Trace (Negative); Leukocyte Esterase Urine Trace (Negative); Nitrite Urine Negative (Negative); Protein Urine Negative (Negative); RBC Urine Automated 0-2 /hpf (0-2); Specific Gravity Urine 1.016 (1.000-1.030); Urobilinogen Urine Negative (Negative); WBC Urine Automated 0-5 /hpf (0-5)
--- NOTE | 2024-12-05 12:15 | Surgery Consultation ---
Date of Consultation December 05, 2024 Assessment & Plan (1) Abdominal ascites: (2) 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: Plan 59 yo male with liver cirrhosis secondary to GONZALES with abdominal ascites requiring recurrent paracentesis every 10 days. He has open wound of the abdomen above umbilicus that continues to open and drain given abdominal distention and buildup of ascites. The tissue surrounding the open wound is very excoriated due to the multiple suture placement and pressure from ascites. Currently has urostomy bag on the wound to help with drainage. Would not recommend further manipulation of the wound given the excoriated tissue and it will not fix the problem. He needs to have more frequent paracentesis or need to consider Pleurx catheter placement for continuous drainage. No surgical intervention recommended. Wound nurse consult to help with leakage around ostomy appliance and discussed with hospitalist about further IR intervention. Our services signing off, please call with questions/concerns. Dr. Tejeda has seen and examined patient, agrees with above. Supervising Physician Co-Signing Physician Notes I have seen and examined the patient personally and agree with the above assessment and plan. In brief, he is a 59-year-old gentleman with cirrhosis and ascites who has developed a leak through the skin near his umbilical hernia site. This has been reapproximated with sutures and Dermabond twice to no avail. I would recommend an ostomy bag to the site for drainage. He will need optimization of his fluid status probably with more frequent paracentesis. Would recommend GI consult. No surgical intervention at this time. Please call with questions or concerns. History of Present Illness Reason for Consultation: abdominal wound , leakage of ascites Requesting Physician: Karsten Delgado MD Attending Physician: Karsten Delgado MD History of Present Illness 59-year-old male with past medical history significant for type 2 diabetes, hyperlipidemia, chronic idiopathic gout, history of hepatic encephalopathy, primary hypertension, moderate aortic stenosis, liver cirrhosis secondary to GONZALES, diverticulosis of colon, BPH, thrombocytopenia comes because of ascitic fluid leakage from umbilical area. Patient currently getting paracentesis every 10 days. Patient was recently in the hospital for abdominal pain and spontaneous fluid leakage from patient's umbilical hernia. Area has been sutured twice now as well as Dermabond placement. Patient says today he noticed glue came out and started to drain again. Colostomy bag placed and drained 3 liters of fluid. Denies abdominal pain. Denies fevers. Allergies Allergy/AdvReac Type Severity Reaction Status Date / Time aspirin AdvReac Intermediate NOSE Verified 11/29/24 07:29 BLEEDS--IF TAKES REGULARLY salicylates AdvReac Intermediate NOSE BLEEDS Verified 11/29/24 07:29 Home Medications Medication Instructions Recorded Confirmed Type allopurinol 300 mg tablet 300 mg PO DAILY 12/05/24 12/05/24 History ascorbic acid (vitamin C) 1,000 mg 1 g PO DAILY 12/05/24 12/05/24 History tablet atorvastatin 20 mg PO DAILY 12/05/24 12/05/24 History docusate sodium 100 mg capsule 100 mg PO BID PRN Constipation 12/05/24 12/05/24 History insulin degludec 100 unit/mL (3 10 unit subcut DAILY 12/05/24 12/05/24 History mL) subcutaneous pen lactulose 10 gram/15 mL oral 45 ml PO TID 12/05/24 12/05/24 History solution magnesium chloride 64 mg 64 mg PO DAILY 12/05/24 12/05/24 History (magnesium chloride) tablet,delayed release (Mag-Delay) midodrine 2.5 mg tablet 7.5 mg PO TID 12/05/24 12/05/24 History mupirocin 2 % topical ointment 1 applic topical TID 12/05/24 12/05/24 History omeprazole 20 mg capsule,delayed 20 mg PO DAILY 12/05/24 12/05/24 History release potassium chloride 10 mEq 20 meq PO TID 12/05/24 12/05/24 History tablet,extended release(part/cryst) rifaximin 550 mg tablet (Xifaxan) 550 mg PO BID 12/05/24 12/05/24 History sodium chloride 1,000 mg soluble 1,000 mg PO BID 12/05/24 12/05/24 History tablet tamsulosin 0.4 mg capsule 0.4 mg PO DAILY 12/05/24 12/05/24 History torsemide 20 mg tablet 20 mg PO DAILY 12/05/24 12/05/24 History Patient History Medical History Ureterolithiasis Hepatocellular carcinoma s/p IR embolization Pulmonary hypertension Diabetes mellitus NAFLD (nonalcoholic fatty liver disease) Chronic hyponatremia Dizziness r/t the cirrhosis - using a cane at this time. "if i get up to fast". S/P abdominal paracentesis Fracture of rib of right side 2013 Anaplasmosis 2019 Acute hepatic encephalopathy Cardiac murmur HX Hypertension Right rib fracture hx ~. Surgical History History of esophagogastroduodenoscopy (EGD) History of colonoscopy Family History Mother History of colonoscopy Brother Family history of diabetes mellitus Brother Family history of diabetes mellitus Grandmother (Paternal) Family history of diabetes mellitus Other No family history of adverse response to anesthesia Social History Smoking Status: Never smoker Tobacco Type: Smokeless Tobacco (Dip or Chew) Second Hand Exposure: No; Do You Dip or Chew Tobacco: Yes; Hx Alcohol Use: No Hx Substance Use: No Preferred Language: Slovenian Communication Ability: Effective Medical Records Custodian Required: No Beliefs That Will Affect Care: None marital status: Single Current Living Situation: Family Current Living Situation Comment: With brother and mother Feels Safe at Home: Yes Assistive Devices: Cane and Walker Review of Systems Review of Systems: All systems reviewed & are unremarkable except as noted in HPI & below Physical Exam Constitutional: WD/WN, vitals as above cooperative; no acute distress, not ill appearing and not in distress Gastrointestinal (Abdomen): Inspection/Auscultation: + abdomen distended Percussion/Palpation: + abdomen tender (mild in the left mid abdomen), abdomen soft and + ascites; no guarding, abdomen not rigid and abdomen not firm Umbilical open wound with nylon suture present, there is excoriation of the surrounding skin , ascites drainage in the urostomy bag Skin: no rashes, warm and dry + jaundice Psychiatric: Orientation: alert and oriented x 3 Results & Data Vital Signs (Past 12 Hours) Vital Signs Temp Pulse Resp BP Pulse Ox Pulse Ox O2 Del Method 12/05/24 09:30 93 H 19 100/60 96 Room Air 12/05/24 09:03 99 H 25 H 100 Room Air 12/05/24 09:00 95/59 L 12/05/24 08:30 97 H 25 H 115/69 100 Room Air 12/05/24 08:00 89 22 116/67 100 Room Air 12/05/24 07:54 97 H 12/05/24 07:30 97 H 16 89/47 L 99 Room Air 12/05/24 06:33 100 H 19 99 12/05/24 06:30 94/51 L 12/05/24 06:30 94/51 L 12/05/24 06:18 100 12/05/24 06:06 94 H 20 94 12/05/24 06:03 94 H 15 100 12/05/24 06:00 98/62 L 12/05/24 06:00 98/62 L 12/05/24 05:57 98 H 19 12/05/24 05:51 97 H 14 99 12/05/24 05:45 96 H 20 12/05/24 05:39 100 H 23 12/05/24 05:31 95/67 L 12/05/24 05:31 95/67 L 12/05/24 05:21 102 H 19 100 12/05/24 05:15 92 H 17 100 12/05/24 05:09 95 H 17 100 12/05/24 05:00 92/71 L 12/05/24 05:00 92/71 L 12/05/24 04:57 95 H 21 100 12/05/24 04:51 101 H 17 12/05/24 04:42 91 H 16 12/05/24 04:30 89 18 12/05/24 04:30 110/66 12/05/24 04:30 110/66 12/05/24 04:30 110/66 12/05/24 04:21 95 H 15 94 12/05/24 04:18 94 H 15 12/05/24 04:07 105/57 L 12/05/24 03:45 Room Air 12/05/24 03:34 97 H 12/05/24 03:29 103/65 12/05/24 03:13 Room Air 12/05/24 03:13 36.6 C 95 H 18 98 Room Air O2 Del Method 12/05/24 09:30 12/05/24 09:03 12/05/24 09:00 12/05/24 08:30 12/05/24 08:00 12/05/24 07:54 12/05/24 07:30 12/05/24 06:33 12/05/24 06:30 12/05/24 06:30 12/05/24 06:18 Room Air 12/05/24 06:06 12/05/24 06:03 12/05/24 06:00 12/05/24 06:00 12/05/24 05:57 12/05/24 05:51 12/05/24 05:45 12/05/24 05:39 12/05/24 05:31 12/05/24 05:31 12/05/24 05:21 12/05/24 05:15 12/05/24 05:09 12/05/24 05:00 12/05/24 05:00 12/05/24 04:57 12/05/24 04:51 12/05/24 04:42 12/05/24 04:30 12/05/24 04:30 12/05/24 04:30 12/05/24 04:30 12/05/24 04:21 12/05/24 04:18 12/05/24 04:07 12/05/24 03:45 12/05/24 03:34 12/05/24 03:29 12/05/24 03:13 12/05/24 03:13 Laboratory Results 12/05/24 12/05/24 12/05/24 Range/Units 11:13 10:55 08:00 WBC (4.8-10.8) K/ul RBC (4.70-6.10) M/uL Hgb (14.0-18.0) g/dl Hct (42.0-52.0) % MCV (80.0-100.0) fL MCH (25.0-34.0) pg MCHC (32.0-36.0) g/dL RDW Std Deviation (36.4-46.3) fL RDW Coeff of Polo (11.5-14.5) % Plt Count (130-400) K/uL MPV (9.4-12.4) fL Immature Gran % (Auto) % Neut % (Auto) % Lymph % (Auto) % [place] % (Auto) % Eos % (Auto) % Baso % (Auto) % Neut # (Auto) (1.40-6.50) K/uL Lymph # (Auto) (1.20-3.40) K/uL [place] # (Auto) (0.11-0.59) K/uL Eos # (Auto) (0.00-0.50) K/uL Baso # (Auto) (0.00-0.20) K/uL Immature Gran # (Auto) (0.01-0.20) K/uL RBC Morphology Polychromasia PT (9.0-12.0) Seconds INR (0.9-1.1) Sodium (136-145) mmol/L Potassium (3.5-5.1) mmol/L Chloride (98-107) mmol/L Carbon Dioxide (21-32) mmol/L Anion Gap (3-11) BUN (6-23) mg/dl Creatinine (0.6-1.4) mg/dl Est Cr Clr Drug Dosing ml/min eGFR BUN/Creatinine Ratio (10-20) Glucose (70-99(Fasting)) mg/dl POC Glucose 200 H 157 H (70-99) mg/dl Calcium (8.6-10.3) mg/dl Magnesium (1.7-2.4) mg/dl Total Bilirubin (0.2-1.0) mg/dl Direct Bilirubin (0-0.2) mg/dl AST (13-39) U/L ALT (7-52) U/L Alkaline Phosphatase (34-104) U/L Total Protein (6.0-8.3) gm/dl Albumin (3.4-5.0) gm/dl Globulin (2.5-4.0) gm/dl Albumin/Globulin Ratio (0.9-2) Lipase (11-82) U/L Urine Color Dark Yellow Urine Appearance Clear (Clear) Urine pH 7.0 (4.5-7.5) Ur Specific [place] 1.016 (1.000-1.030) Urine Protein Negative (Negative) Urine Glucose (UA) Negative (Negative) Urine Ketones Trace H (Negative) Urine Blood Negative (Negative) Urine Nitrite Negative (Negative) Urine Bilirubin Negative (Negative) Urine Urobilinogen Negative (Negative) Ur Leukocyte Esterase Trace H (Negative) Urine WBC (Auto) 0-5 (0-5) /hpf Urine RBC (Auto) 0-2 (0-2) /hpf U Hyaline Cast (Auto) 0-2 (0-2) /lpf U Epithel Cells (Auto) 0-2 (0-2) /hpf Urine Bacteria (Auto) None Seen (None Seen) 12/05/24 12/05/24 12/05/24 Range/Units 07:05 04:43 04:30 WBC 4.82 4.95 (4.8-10.8) K/ul RBC 2.21 L 2.24 L (4.70-6.10) M/uL Hgb 7.5 L 7.7 L (14.0-18.0) g/dl Hct 21.9 L 22.3 L (42.0-52.0) % MCV 99.1 99.6 (80.0-100.0) fL MCH 33.9 34.4 H (25.0-34.0) pg MCHC 34.2 34.5 (32.0-36.0) g/dL RDW Std Deviation 69.5 H 70.8 H (36.4-46.3) fL RDW Coeff of Polo 19.6 H 19.8 H (11.5-14.5) % Plt Count 62 L 66 L (130-400) K/uL MPV 10.7 11.0 (9.4-12.4) fL Immature Gran % (Auto) 0.8 0.6 % Neut % (Auto) 64.9 67.5 % Lymph % (Auto) 10.6 9.9 % [place] % (Auto) 18.7 17.2 % Eos % (Auto) 3.3 3.2 % Baso % (Auto) 1.7 1.6 % Neut # (Auto) 3.13 3.34 (1.40-6.50) K/uL Lymph # (Auto) 0.51 L 0.49 L (1.20-3.40) K/uL [place] # (Auto) 0.90 H 0.85 H (0.11-0.59) K/uL Eos # (Auto) 0.16 0.16 (0.00-0.50) K/uL Baso # (Auto) 0.08 0.08 (0.00-0.20) K/uL Immature Gran # (Auto) 0.04 0.03 (0.01-0.20) K/uL RBC Morphology Unremarkable Polychromasia 1+ PT 15.5 H (9.0-12.0) Seconds INR 1.5 H (0.9-1.1) Sodium 130 L 130 L (136-145) mmol/L Potassium 3.4 L 3.7 (3.5-5.1) mmol/L Chloride 98 96 L (98-107) mmol/L Carbon Dioxide 27 28 (21-32) mmol/L Anion Gap 5 6 (3-11) BUN 15 15 (6-23) mg/dl Creatinine 0.78 0.90 (0.6-1.4) mg/dl Est Cr Clr Drug Dosing 129.2 112.0 ml/min eGFR 102.09 97.78 BUN/Creatinine Ratio 19.2 16.7 (10-20) Glucose 157 H 162 H (70-99(Fasting)) mg/dl POC Glucose (70-99) mg/dl Calcium 8.4 L 8.6 (8.6-10.3) mg/dl Magnesium 1.8 (1.7-2.4) mg/dl Total Bilirubin 3.2 H 3.3 H (0.2-1.0) mg/dl Direct Bilirubin 1.0 H (0-0.2) mg/dl AST 49 H 54 H (13-39) U/L ALT 24 25 (7-52) U/L Alkaline Phosphatase 85 93 (34-104) U/L Total Protein 5.2 L 5.6 L (6.0-8.3) gm/dl Albumin 2.6 L 2.7 L (3.4-5.0) gm/dl Globulin 2.9 (2.5-4.0) gm/dl Albumin/Globulin Ratio 0.9 (0.9-2) Lipase 70 (11-82) U/L Urine Color Urine Appearance (Clear) Urine pH (4.5-7.5) Ur Specific [place] (1.000-1.030) Urine Protein (Negative) Urine Glucose (UA) (Negative) Urine Ketones (Negative) Urine Blood (Negative) Urine Nitrite (Negative) Urine Bilirubin (Negative) Urine Urobilinogen (Negative) Ur Leukocyte Esterase (Negative) Urine WBC (Auto) (0-5) /hpf Urine RBC (Auto) (0-2) /hpf U Hyaline Cast (Auto) (0-2) /lpf U Epithel Cells (Auto) (0-2) /hpf Urine Bacteria (Auto) (None Seen)
[2024-12-05] MEDS ORDERED: MoRPHine SULFATE 2 MG/ML CARP IV PRN (14:17)
--- NOTE | 2024-12-05 15:00 | CT Scan Report ---
ABDOMEN AND PELVIS CT WITHOUT CONTRAST CT DOSE: 1535.95 mGy.cm HISTORY: Abd Pain TECHNIQUE: Multiaxial CT images of the abdomen and pelvis were performed without contrast. A dose lo wering technique was utilized adhering to the principles of ALARA. COMPARISON STUDY: 07/21/2024 FINDINGS: There is a small left pleural effusion, decreased in size. ABDOMEN: There is stable nodular contour of the liver with splenomegaly and left upper quadrant varic es consistent with cirrhosis and portal hypertension. There is trace ascites. Pancreas and adrenal gl ands have an unremarkable non-IV contrast appearance. There is a tiny nonobstructing calculus at the right kidney. There is no hydronephrosis bilaterally. No abdominal aortic aneurysm. There are mild at herosclerotic calcifications. Pelvis: There is a stable small periumbilical hernia containing a small amount of fluid. Urinary blad samantha is nondistended. Prostate is not enlarged. There is moderate retained stool. No bowel inflammatio n or obstruction seen. No free air or abscess. No enlarged adenopathy. Osseous structures: No acute osseous findings. IMPRESSION: 1. No acute findings. 2. Stable findings of cirrhosis and portal hypertension with trace ascites. 3. Otherwise as described. ACT 112: Negative or not required by law. The above report was generated using voice recognition software. It may contain grammatical, syntax o r spelling errors. Electronically signed by: Demario Cuadra M.D. 12/05/2024 2:57 PM
--- NOTE | 2024-12-05 15:22 | Hospitalist Progress Note ---
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 Patient currently getting paracentesis every 10 days. Patient was recently in the hospital for abdominal pain and spontaneous fluid leakage from patient's umbilical hernia. General surgery was consulted umbilicus was sutured. Was again leaking on December 02, 2024 in the IR suite and surgery again placed nylon suture and Dermabond at the base of the wound . Patient says today he noticed glue came out and started to drain again. Currently in the ER colostomy bag was placed over the leaking site with connection to Mcmillan catheter and seems drained about 3 L of fluid so far. Denies abdominal pain. Denies fevers. Having 1 or 2 bowel movements daily. He states regularly takes lactulose. Micturating okay. Denies any chest pain or shortness of breath currently. Currently no cough. No headache. No runny nose or sore throat. Hemodynamics are okay. He says ambulates with a cane. He lives with his mother and brother. Abdominal ascites Recurrent leaking from umbilical site Abdominal pain Patient recently in the hospital for similar problem and surgery was consulted and sutures were placed Surgery advised to get paracentesis quickly before the fluid buildup and supposed to get paracentesis on 12/06/2024. Started leaking on admission. In the ER colostomy bag placed to the umbilical site and connected to Mcmillan catheter and seems drained 3 L liters fluid so far. --CT ABD:No acute findings. Stable findings of cirrhosis and portal hypertension with trace ascites. --Blood cultures pending -- Empirically on Rocephin -- Appreciate surgery input: Given open wound excoriation, multiple suture p lacement and pressure from ascites failure in the past--recommends Pleurx catheter placement given recurrent need for paracentesis. -- Patient agrees Pleurx catheter placement. IR unavailable at [facility] for the procedure. -- Patient will be transferred to tertiary care facility for further management 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 Continue home diuretics and lactulose and Xifaxan Follow-up with GI and hepatology DM II Continue insulin while in hospital Will consult pharmacy to help with insulin regimen Moderate aortic stenosis Pulmonary hypertension Follow-up with cardio History of hepatocellular carcinoma/liver lesions Status post band embolization MRI liver on 11/14/2024:Cirrhosis with portal hypertension. Right hepatic lobe treatment zone with irregular peripheral enhancement, suggesting residual/recurrent tumor (LR-TR viable). 1.6 cm right hepatic lobe lesion, suspicious for HCC (LR-4). 1.9 cm questionable lesion in the left hepatic lobe with washout in the left hepatic lobe (LR-3), Recommend attention on follow-up. --Needs follow-up as outpatient Chronic hyponatremia Salt tablets Sodium 130 today Monitor Chronic pancytopenia due to liver cirrhosis Hemoglobin 7.7 and platelets 66 today Monitor CBC No acute bleeding issues currently Recurrent hypokalemia secondary to diuretic use Continue home potassium supplements Monitor electrolytes History of left hepatic hydrothorax History of gout Continue allopurinol BPH On Flomax Hyperlipidemia on statin DVT prophylaxis SCDs for now thrombocytopenia. Re: CODE STATUS Full code Disposition Needs transfer to tertiary care facility for further management Admission and Anticipated Discharge Date Admission Date: December 05, 2024 Subjective Patient is seen and examined at bedside Reports abd pain and ascitic fluid leak No other complaints Denies any chest pain, dyspnea, nausea, vomiting, dizziness Discussed with surgery today Review of Systems Review of Systems: All systems reviewed & are unremarkable except as noted in Subjective Physical Exam Physical Exam: Physical Exam: Vitals signs as noted above General Appearance:Moderately built and nourished, chronically appearing, no apparent distress Head: normocephalic, Atraumatic Eyes: normal inspection, EOMI Neck: supple, Trachea midline Respiratory/Chest: Normal breath sounds, CTA, No accessory muscle use Cardiovascular: S1, S2, +murmur Abdomen/GI:Soft, distended, mild tender, Bowel sounds present,+colostomy bag placed over umbilical area wound, excoriation Extremities/Musculoskeletal:normal inspection, no edema Neurologic/Psych:AAOX3, grossly no focal neurological deficits Skin: normal color, warm, + jaundice Results & Data Results & Data Vital Signs (Past 12 Hours) Vital Signs Pulse Resp BP Pulse Ox Pulse Ox O2 Del Method O2 Del Method 12/05/24 09:30 93 H 19 100/60 96 Room Air 12/05/24 09:03 99 H 25 H 100 Room Air 12/05/24 09:00 95/59 L 12/05/24 08:30 97 H 25 H 115/69 100 Room Air 12/05/24 08:00 89 22 116/67 100 Room Air 12/05/24 07:54 97 H 12/05/24 07:30 97 H 16 89/47 L 99 Room Air 12/05/24 06:33 100 H 19 99 12/05/24 06:30 94/51 L 12/05/24 06:30 94/51 L 12/05/24 06:18 100 Room Air 12/05/24 06:06 94 H 20 94 12/05/24 06:03 94 H 15 100 12/05/24 06:00 98/62 L 12/05/24 06:00 98/62 L 12/05/24 05:57 98 H 19 12/05/24 05:51 97 H 14 99 12/05/24 05:45 96 H 20 12/05/24 05:39 100 H 23 12/05/24 05:31 95/67 L 12/05/24 05:31 95/67 L 12/05/24 05:21 102 H 19 100 12/05/24 05:15 92 H 17 100 12/05/24 05:09 95 H 17 100 12/05/24 05:00 92/71 L 12/05/24 05:00 92/71 L 12/05/24 04:57 95 H 21 100 12/05/24 04:51 101 H 17 12/05/24 04:42 91 H 16 12/05/24 04:30 89 18 12/05/24 04:30 110/66 12/05/24 04:30 110/66 12/05/24 04:30 110/66 12/05/24 04:21 95 H 15 94 12/05/24 04:18 94 H 15 12/05/24 04:07 105/57 L 12/05/24 03:45 Room Air 12/05/24 03:34 97 H 12/05/24 03:29 103/65 Laboratory Results Short CBC 12/05/24 12/05/24 Range/Units 04:43 07:05 WBC 4.95 4.82 (4.8-10.8) K/ul Hgb 7.7 L 7.5 L (14.0-18.0) g/dl Hct 22.3 L 21.9 L (42.0-52.0) % Plt Count 66 L 62 L (130-400) K/uL BMP 12/05/24 12/05/24 04:43 07:05 Sodium 130 L 130 L Potassium 3.7 3.4 L Chloride 96 L 98 Carbon Dioxide 28 27 BUN 15 15 Creatinine 0.90 0.78 Glucose 162 H 157 H Calcium 8.6 8.4 L Liver Function 12/05/24 12/05/24 Range/Units 04:43 07:05 Total Bilirubin 3.3 H 3.2 H (0.2-1.0) mg/dl Direct Bilirubin 1.0 H (0-0.2) mg/dl AST 54 H 49 H (13-39) U/L ALT 25 24 (7-52) U/L Alkaline Phosphatase 93 85 (34-104) U/L Albumin 2.7 L 2.6 L (3.4-5.0) gm/dl Urine 12/05/24 Range/Units 10:55 Urine Color Dark Yellow Urine Appearance Clear (Clear) Urine pH 7.0 (4.5-7.5) Ur Specific [place] 1.016 (1.000-1.030) Urine Protein Negative (Negative) Urine Glucose (UA) Negative (Negative)
--- NOTE | 2024-12-05 16:59 | Discharge Summary ---
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 Patient currently getting paracentesis every 10 days. Patient was recently in the hospital for abdominal pain and spontaneous fluid leakage from patient's umbilical hernia. General surgery was consulted umbilicus was sutured. Was again leaking on December 02, 2024 in the IR suite and surgery again placed nylon suture and Dermabond at the base of the wound . Patient says today he noticed glue came out and started to drain again. Currently in the ER colostomy bag was placed over the leaking site with connection to Mcmillan catheter and seems drained about 3 L of fluid so far. Denies abdominal pain. Denies fevers. Having 1 or 2 bowel movements daily. He states regularly takes lactulose. Micturating okay. Denies any chest pain or shortness of breath currently. Currently no cough. No headache. No runny nose or sore throat. Hemodynamics are okay. He says ambulates with a cane. He lives with his mother and brother. Past medical history. As mentioned above Past surgical history. Colonoscopy. EGD. IR biopsy. IR cancer chemoembolization. Social history. Quit smoking 2004. Chews tobacco. No alcohol use. No drug use. Family history. Mother had colon cancer. Hypertension. Father had diabetes. Emphysema. Hypertension. Black lung. Corneal transplant. Brother has pacemaker. Diabetes. Heart attack. Hypertension. Hyperlipidemia. Liver disease. Sister has rheumatoid arthritis. Admission Exam Per Admitting Provider General- Not in acute distress Head- atraumatic Eyes- PERRL. ENT- oropharynx clear Neck- supple, no JVD. Lungs- clear to auscultation no wheezing or crackles Heart- regular rhythm; ESM murmur in aortic area. no gallop, no rub appreciated Abdomen- normal bowel sounds, soft, nontender, colostomy bag placed over umbil ical area Extremities- no pretibial edema, no erythema seen. Neuro- alert, oriented PERRL, no facial palsy; no dysarthria; moves extremities Principal Diagnosis Abdominal ascites Recurrent leaking from umbilical site 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 Chronic hyponatremia Hypokalemia Chronic pancytopenia Discharge Data Allergies Allergy/AdvReac Type Severity Reaction Status Date / Time aspirin AdvReac Intermediate NOSE Verified 11/29/24 07:29 BLEEDS--IF TAKES REGULARLY salicylates AdvReac Intermediate NOSE BLEEDS Verified 11/29/24 07:29 Consultations 12/05/24 04:16 ED Decision to Admit Stat 12/05/24 08:00 Consult General Surgery Routine Procedures Performed Laboratory Results WBC 4.82 K/ul (4.8-10.8) 12/05/24 07:05 RBC 2.21 M/uL (4.70-6.10) L 12/05/24 07:05 Hgb 7.5 g/dl (14.0-18.0) L 12/05/24 07:05 Hct 21.9 % (42.0-52.0) L 12/05/24 07:05 MCV 99.1 fL (80.0-100.0) 12/05/24 07:05 MCH 33.9 pg (25.0-34.0) 12/05/24 07:05 MCHC 34.2 g/dL (32.0-36.0) 12/05/24 07:05 RDW Std Deviation 69.5 fL (36.4-46.3) H 12/05/24 07:05 RDW Coeff of [place] 19.6 % (11.5-14.5) H 12/05/24 07:05 Plt Count 62 K/uL (130-400) L 12/05/24 07:05 MPV 10.7 fL (9.4-12.4) 12/05/24 07:05 Immature Gran % (Auto) 0.8 % 12/05/24 07:05 Neut % (Auto) 64.9 % 12/05/24 07:05 Lymph % (Auto) 10.6 % 12/05/24 07:05 [place] % (Auto) 18.7 % 12/05/24 07:05 Eos % (Auto) 3.3 % 12/05/24 07:05 Baso % (Auto) 1.7 % 12/05/24 07:05 Neut # (Auto) 3.13 K/uL (1.40-6.50) 12/05/24 07:05 Lymph # (Auto) 0.51 K/uL (1.20-3.40) L 12/05/24 07:05 [place] # (Auto) 0.90 K/uL (0.11-0.59) H 12/05/24 07:05 Eos # (Auto) 0.16 K/uL (0.00-0.50) 12/05/24 07:05 Baso # (Auto) 0.08 K/uL (0.00-0.20) 12/05/24 07:05 Immature Gran # (Auto) 0.04 K/uL (0.01-0.20) 12/05/24 07:05 RBC Morphology Unremarkable 12/05/24 07:05 Polychromasia 1+ 12/05/24 04:43 PT 15.5 Seconds (9.0-12.0) H 12/05/24 04:30 INR 1.5 (0.9-1.1) H 12/05/24 04:30 Sodium 130 mmol/L (136-145) L 12/05/24 07:05 Potassium 3.4 mmol/L (3.5-5.1) L 12/05/24 07:05 Chloride 98 mmol/L (98-107) 12/05/24 07:05 Carbon Dioxide 27 mmol/L (21-32) 12/05/24 07:05 Anion Gap 5 (3-11) 12/05/24 07:05 BUN 15 mg/dl (6-23) 12/05/24 07:05 Creatinine 0.78 mg/dl (0.6-1.4) 12/05/24 07:05 Est Cr Clr Drug Dosing 129.2 ml/min 12/05/24 07:05 eGFR 102.09 12/05/24 07:05 BUN/Creatinine Ratio 19.2 (10-20) 12/05/24 07:05 Glucose 157 mg/dl (70-99(Fasting)) H 12/05/24 07:05 POC Glucose 200 mg/dl (70-99) H 12/05/24 11:13 Calcium 8.4 mg/dl (8.6-10.3) L 12/05/24 07:05 Magnesium 1.8 mg/dl (1.7-2.4) 12/05/24 07:05 Total Bilirubin 3.2 mg/dl (0.2-1.0) H 12/05/24 07:05 Direct Bilirubin 1.0 mg/dl (0-0.2) H 12/05/24 07:05 AST 49 U/L (13-39) H 12/05/24 07:05 ALT 24 U/L (7-52) 12/05/24 07:05 Alkaline Phosphatase 85 U/L (34-104) 12/05/24 07:05 Total Protein 5.2 gm/dl (6.0-8.3) L 12/05/24 07:05 Albumin 2.6 gm/dl (3.4-5.0) L 12/05/24 07:05 Globulin 2.9 gm/dl (2.5-4.0) 12/05/24 04:43 Albumin/Globulin Ratio 0.9 (0.9-2) 12/05/24 04:43 Lipase 70 U/L (11-82) 12/05/24 04:43 Urine Color Dark Yellow 12/05/24 10:55 Urine Appearance Clear (Clear) 12/05/24 10:55 Urine pH 7.0 (4.5-7.5) 12/05/24 10:55 Ur Specific [place] 1.016 (1.000-1.030) 12/05/24 10:55 Urine Protein Negative (Negative) 12/05/24 10:55 Urine Glucose (UA) Negative (Negative) 12/05/24 10:55 Urine Ketones Trace (Negative) H 12/05/24 10:55 Urine Blood Negative (Negative) 12/05/24 10:55 Urine Nitrite Negative (Negative) 12/05/24 10:55 Urine Bilirubin Negative (Negative) 12/05/24 10:55 Urine Urobilinogen Negative (Negative) 12/05/24 10:55 Ur Leukocyte Esterase Trace (Negative) H 12/05/24 10:55 Urine WBC (Auto) 0-5 /hpf (0-5) 12/05/24 10:55 Urine RBC (Auto) 0-2 /hpf (0-2) 12/05/24 10:55 U Hyaline Cast (Auto) 0-2 /lpf (0-2) 12/05/24 10:55 U Epithel Cells (Auto) 0-2 /hpf (0-2) 12/05/24 10:55 Urine Bacteria (Auto) None Seen (None Seen) 12/05/24 10:55 Impressions Abdomen/Pelvis CT 12/05/24 14:[address] WITHOUT CONTRAST CT DOSE: 1535.95 mGy.cm HISTORY: Abd Pain TECHNIQUE: Multiaxial CT images of the abdomen and pelvis were performed without contrast. A dose lowering technique was utilized adhering to the principles of ALARA. COMPARISON STUDY: 07/21/2024 FINDINGS: There is a small left pleural effusion, decreased in size. ABDOMEN: There is stable nodular contour of the liver with splenomegaly and left upper quadrant varices consistent with cirrhosis and portal hypertension. There is trace ascites. Pancreas and adrenal glands have an unremarkable non-IV contrast appearance. There is a tiny nonobstructing calculus at the right kidney. There is no hydronephrosis bilaterally. No abdominal aortic aneurysm. There are mild atherosclerotic calcifications. Pelvis: There is a stable small periumbilical hernia containing a small amount of fluid. Urinary bladder is nondistended. Prostate is not enlarged. There is moderate retained stool. No bowel inflammation or obstruction seen. No free air or abscess. No enlarged adenopathy. Osseous structures: No acute osseous findings. IMPRESSION: 1. No acute findings. 2. Stable findings of cirrhosis and portal hypertension with trace ascites. 3. Otherwise as described. ACT 112: Negative or not required by law. The above report was generated using voice recognition software. It may contain grammatical, syntax or spelling errors. Electronically signed by: Demario Cuadra M.D. 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 Patient currently getting paracentesis every 10 days. Patient was recently in the hospital for abdominal pain and spontaneous fluid leakage from patient's umbilical hernia. General surgery was consulted umbilicus was sutured. Was again leaking on December 02, 2024 in the IR suite and surgery again placed nylon suture and Dermabond at the base of the wound . Patient says today he noticed glue came out and started to drain again. Currently in the ER colostomy bag was placed over the leaking site with connection to Mcmillan catheter and seems drained about 3 L of fluid so far. Denies abdominal pain. Denies fevers. Having 1 or 2 bowel movements daily. He states regularly takes lactulose. Micturating okay. Denies any chest pain or shortness of breath currently. Currently no cough. No headache. No runny nose or sore throat. Hemodynamics are okay. He says ambulates with a cane. He lives with his mother and brother. Abdominal ascites Recurrent leaking from umbilical site Abdominal pain Patient recently in the hospital for similar problem and surgery was consulted and sutures were placed Surgery advised to get paracentesis quickly before the fluid buildup and supposed to get paracentesis on 12/06/2024. Started leaking on admission. In the ER colostomy bag placed to the umbilical site and connected to Mcmillan catheter and seems drained 3 L liters fluid so far. --CT ABD:No acute findings. Stable findings of cirrhosis and portal hypertension with trace ascites. --Blood cultures pending -- Empirically on Rocephin -- Appreciate surgery input: Given open wound excoriation, multiple suture placement and pressure from ascites failure in the past--recommends Pleurx catheter placement given recurrent need for paracentesis. -- Patient agrees Pleurx catheter placement. IR unavailable at [facility] for the procedure. -- Patient will be transferred to tertiary care facility for further management 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 Continue home diuretics and lactulose and Xifaxan Follow-up with GI and hepatology DM II Continue insulin while in hospital Will consult pharmacy to help with insulin regimen Moderate aortic stenosis Pulmonary hypertension Follow-up with cardio History of hepatocellular carcinoma/liver lesions Status post band embolization MRI liver on 11/14/2024:Cirrhosis with portal hypertension. Right hepatic lobe treatment zone with irregular peripheral enhancement, suggesting residual/recurrent tumor (LR-TR viable). 1.6 cm right hepatic lobe lesion, suspicious for HCC (LR-4). 1.9 cm questionable lesion in the left hepatic lobe with washout in the left hepatic lobe (LR-3), Recommend attention on follow-up. --Needs follow-up as outpatient Chronic hyponatremia Salt tablets Sodium 130 today Monitor Chronic pancytopenia due to liver cirrhosis Hemoglobin 7.7 and platelets 66 today Monitor CBC No acute bleeding issues currently Recurrent hypokalemia secondary to diuretic use Continue home potassium supplements Monitor electrolytes History of left hepatic hydrothorax History of gout Continue allopurinol BPH On Flomax Hyperlipidemia on statin DVT prophylaxis SCDs for now thrombocytopenia. Re: CODE STATUS Full code Disposition [facility] Total Time Total Time Spent Total Time Spent (In Minutes): 57 minutes Discharge Plan Discharge Items Patient Disposition: Transfer Acute Care Hospital Reason For Visit: ASCITIC FLUID LEAKAGE Discharge Diagnosis: Abdominal ascites Recurrent leaking from umbilical site 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 Chronic hyponatremia Hypokalemia Chronic pancytopenia Activity: Per Instructions section Exercise/Sports: Wait until after follow-up appointment Non-emergency contact: Primary Care Provider Call non-emergency contact if: you have any medication questions, your symptoms worsen, your pain is concerning for you and you have a fever Follow-up/Referrals: Krystian Palomo MD [Primary Care Provider] - Diet: Carb Consistent or DM2 and Heart Healthy Fluids: 1800ml (7 cups) Add Attending Provider Instructions: Follow-up with your physician at [facility] for Pleurx catheter placement and further management. Seek immediate medical attention if your symptoms reoccur or worsen Please take all medications as instructed on discharge list below. Please call if you have any questions or problems. You can reach a [facility] hospitalist on duty at [facility] 24 hours a day by calling [phone] [facility] Provider Instructions: Date of Service: December 05, 2024 Current Inpatient Medications Allopurinol (Allopurinol 300 Mg Tab) 300 mg PO DAILY [facility] Stop: 01/04/25 08:59 Last Admin: 12/05/24 10:11 Dose: 300 mg Ascorbic Acid (Ascorbic Acid 500 Mg Tab) 1,000 mg PO DAILY [facility] Stop: 01/04/25 08:59 Last Admin: 12/05/24 10:11 Dose: 1,000 mg Dextrose (Dextrose 50% 50 Ml Syringe) 25 - 50 ml IV UD PRN; Protocol PRN Reason: Hypoglycemia Protocol Stop: 01/04/25 06:17 Docusate Sodium (Docusate Sodium 100 Mg Cap) 100 mg PO BID PRN PRN Reason: Constipation Stop: 01/04/25 06:17 Glucagon (Glucagon For Inj 1 Mg Vial) 1 mg SQ UD PRN; Protocol PRN Reason: Hypoglycemia Protocol Stop: 01/04/25 06:17 Glucose (Glucose 40% Gel 15 Gm Tube) 15 - 30 gm PO UD PRN; Protocol PRN Reason: Hypoglycemia Protocol Stop: 01/04/25 06:17 Glucose (Glucose 10 Tab/Tube) 4 - 8 tab PO UD PRN; Protocol PRN Reason: Hypoglycemia Protocol Stop: 01/04/25 06:17 Ceftriaxone Sodium (Rocephin) 2,000 mg in 50 mls @ 100 mls/hr IV Q24H [facility] Stop: 12/16/24 05:59 Insulin Aspart (Insulin Aspart Per Unit Charge) 0 units SC ACHS [facility] Stop: 01/04/25 16:29 Insulin Glargine (Lantus Per Unit Charge) 5 units SC DAILY [facility] Stop: 01/04/25 16:59 Lactulose (Lactulose Syrup 30 Gm/45 Ml Udp) 30 gm PO TID [facility] Stop: 01/04/25 08:59 Last Admin: 12/05/24 15:33 Dose: 30 gm Magnesium Chloride (Magnesium Chloride W/Calcium 64mg Delayed Rel Tab) 64 mg PO DAILY [facility] Stop: 01/04/25 08:59 Last Admin: 12/05/24 10:10 Dose: 64 mg Midodrine (Midodrine Hcl 2.5 Mg Tab) 7.5 mg PO TIDM [facility] Stop: 01/04/25 07:59 Last Admin: 12/05/24 13:40 Dose: 7.5 mg Miscellaneous (Carbohydrates For Hypoglycemia ) 15 - 30 gm PO UD PRN PRN Reason: Hypoglycemia Protocol Stop: 01/04/25 06:17 Miscellaneous Information (Pharmacy Glycemic Mgmt Consult) 1 each N/A UD PRN PRN Reason: Consult Stop: 01/04/25 06:17 Morphine Sulfate (Morphine Sulfate 2 Mg/Ml Carp) 2 mg IV Q8H PRN PRN Reason: Mod-Sev Pain (Scale 4-10) Stop: 12/19/24 14:16 Nitroglycerin (Nitroglycerin Sl 0.4 Mg/Tab Tab) 0.4 mg SL Q5M PRN PRN Reason: Chest Pain Stop: 01/04/25 06:17 Pantoprazole Sodium (Pantoprazole 40 Mg Tab) 40 mg PO DAILY [facility] Stop: 01/04/25 08:59 Last Admin: 12/05/24 10:12 Dose: 40 mg Potassium Chloride (Potassium Chloride Crtab 20 Meq Tabcr) 20 meq PO TID [facility] Stop: 01/04/25 08:59 Last Admin: 12/05/24 15:33 Dose: 20 meq Rifaximin (Rifaximin 550 Mg Tablet) 550 mg PO BID [facility] Stop: 01/04/25 08:59 Last Admin: 12/05/24 10:11 Dose: 550 mg Sodium Chloride (Sodium Chloride 1 Gm Tablet) 1 gm PO BID [facility] Stop: 01/04/25 08:59 Last Admin: 12/05/24 10:11 Dose: 1 gm Tamsulosin HCl (Tamsulosin Hcl 0.4 Mg Cap) 0.4 mg PO DAILY [facility] Stop: 01/04/25 08:59 Last Admin: 12/05/24 10:12 Dose: 0.4 mg Torsemide (Torsemide 20 Mg Tab) 20 mg PO DAILY [facility] Stop: 01/04/25 08:59 Last Admin: 12/05/24 10:12 Dose: 20 mg Pending Studies at Discharge: Yes Studies:: Blood cultures Stand-Alone Forms: [facility] Skilled Items Patient informed of condition?: Yes DNR: No Discharge Level of Care: Other Communicable Disease: No Discharge Prognosis: Stable Lines: Peripheral IV Urinary Catheter: No Medications and DC Order Prescriptions: Continued torsemide 20 mg tablet 20 mg PO DAILY tamsulosin 0.4 mg capsule 0.4 mg PO DAILY docusate sodium 100 mg capsule 100 mg PO BID PRN (Reason: Constipation) omeprazole 20 mg capsule,delayed release(DR/EC) 20 mg PO DAILY allopurinol 300 mg tablet 300 mg PO DAILY mupirocin 2 % ointment 1 applic TOPICAL TID midodrine 2.5 mg tablet 7.5 mg PO TID potassium chloride 10 mEq tablet,ER particles/crystals 20 meq PO TID lactulose 10 gram/15 mL solution 45 ml PO TID sodium chloride 1,000 mg tablet,soluble 1,000 mg PO BID magnesium chloride [Mag-Delay] 64 mg tablet,delayed release (DR/EC) 64 mg PO DAILY Xifaxan 550 mg tablet 550 mg PO BID insulin degludec 100 unit/mL (3 mL) insulin pen 10 unit SUBCUT DAILY ascorbic acid (vitamin C) 1,000 mg Tablet 1 g PO DAILY atorvastatin 20 mg 20 mg PO DAILY Admission Data Admit Date/Time: 12/05/24 05:30 Attending Provider: Karsten Delgado Admit Provider: Luciano Hernandez Primary Care Provider: Krystian Palomo Other Providers: Luciano Hernandez; Venancio Tejeda
[2024-12-05] MEDS: LANTUS PER UNIT CHARGE SC SCH (18:19)
[2024-12-05 19:25] VITALS: TEMP 97.9
[2024-12-05 20:44] VITALS: RESP 18
[2024-12-05 21:40] VITALS: BP 102/60; PULSE 95; O2SAT 98
[2024-12-06] MEDS ORDERED: cefTRIAXone SODIUM 2,000 MG/50 ML BAG IV SCH (06:00)
== END 2024-12-05 21:40 | disposition short-term general hospital (02) | DRG 433 ==
LOC: ED 03:22 → EDINP 05:30 → INTOOBSV 05:30 → EDINP 06:19

== ENCOUNTER 2024-12-28 20:31 | Inpatient (IN) ==
--- OUTSIDE RECORDS SUMMARY | 2024-12-28 20:37 | External Medical Summary | Summary of Care ---
Author Name Unknown Organization [facility] Address [address] [place] [address] Phone [phone] Care Team Providers Care Serology Technician Name Role Phone Krystian Palomo MD Primary Care Provide r Reason for Visit * Reason Onset Date Comments Appointment 12/26/2024 Encounter Details Date Type Department Care Team (Late st Contact Info) Description 12/26/2024 Telephone Pharmacy, [address] [place] [address] [facility] [address] [facility] [place] [address] Appointment Allergies Active Allergy Reactions Criticality Noted Date Comments Aspirin 01/28/2022 Other reaction(s): bloody nose Salicylates 08/08/2001 nose bleeds documented as of this encounter (statuses as of 12/26/2024) Medications Multivitamin Adult Oral Tablet daily . [...] morning and 1 Capsule before bedtime. Active rifAXIMin 550 MG Oral Tablet (Xifaxan)Indication [...] mL before bedtime. 4050 mL 5 Active Insulin Degludec 100 UNIT/ML Subcutaneous Solution Pen-injector (Tresiba FlexTouch)Indicatio ns:Type 2 diabetes mellitus with hemoglobin A1c goal of less than 7.0% (HCC) Inject 10 Units under the skin in the morning. 3 mL 2 5 Active Potassium Chloride Maryam ER 10 MEQ Oral Tablet Extended ReleaseIndications: Low serum potassium Take 2 Tablets by mouth in the morning and 2 Tablets before bedtime. 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 Family history of colon cancer Diverticulosis of colon Hyperlipidemia with target LDL less than 100 Overview (02/29/2016): ICD-10 update of inactive term documented as of this encounter (statuses as of 12/26/2024) Resolved Problems Problem Noted Date Diagnosed Date Resolved Date Cardiac murmur 12/06/2024 12/10/2024 Idiopathic gout 04/29/2016 10/05/2017 HTN, goal below 140/90 06/18/201212/10 Overview: Per HTN Protocol #27. Obesity, Class II, BMI 35-39 .9, isolated (see actual BMI) 01/25/2010 09/01/2011 Overview (01/25/2010): Per Obesity Taxonomy Metabolic syndrome 11/04/2009 4 Other abnormal glucose 11/04/200902/24 Overview (02/26/2010): glucose 192 HTN, goal below 140/90 09/04/200903/01 Overview (09/04/2009): Modified per HTN Taxonomy. Gout 05/06/2003 09/29/2016 Obesity, BMI not known 01/25 Overview (01/25/2010): Per Obesity Taxonomy Abdominal pain 03/01/2010 HTN, goal below 130/80 06/21 Other acute rheumatic heart disease 02/24/2011 Overview (03/22/2010): was on pcn for 11 years. 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 Answer Date of Assessment Author No 12/05/2024 10:37 PM EST Lucía Graff RN * Are you blind or do you have serious difficulty seeing, even when wearing glasses? Answer Date of Assessment Author No 12/05/2024 10:37 PM Lucía Taylor RN * Do you have serious difficulty walking or climbing stairs? (5 years old or older) Answer Date of Assessment Author Yes 12/05/2024 10:37 PM Lucía Taylor RN * Do you have difficulty dressing or bathing? (5 years old or older) Answer Date of Assessment Author No 12/05/2024 10:37 PM Lucía Taylor RN * Because of a physical, mental, or emotional condition, do you have difficulty doing errands alone such as visiting a doctors office or shopping? (15 years old or older) Answer Date of Assessment Author Yes 12/05/2024 10:37 PM Lucía Taylor RN documented as of this encounter Mental Status * Because of a physical, mental, or emotional condition, do you have serious difficulty concentrating, remembering, or making decisions? (5 years old or older) Answer Entry Date Author No 12/05/2024 10:37 PM Lucía Taylor RN documented in this encounter Miscellaneous Notes * Telephone Encounter - Bettina Dos Santos PHARM Tech - 12/26/2024 8:06 AM EST Pt calling in regarding appointment with [facility] for today. Pt requesting to speak with [facility]. Transferred Pt to [facility]. Thank you, Bettina Dos Santos Room Service Clerk [facility] 12/26/2024,8:06 AM documented in this encounter Plan of Treatment Upcoming Encounters Date Type Department Care Team (Late st Contact Info) Description 01/14/2025 10:30 AM EDT Office Visit Gastroenterology, [facility] [address] [place] [address] Ren Pineda CRNP [address] [place] [address] 01/23/2025 3:00 PM EDT Office Visit Pharmacy, [address] [place] [address] [place] [address] 03/10/2025 7:20 AM EDT Office Visit Family [address] [place] [phone] Krystian Palomo MD [address] [place] [address] [place] [address] 03/20/2025 10:30 AM EDT Office Visit Cardiology, [facility] [address] [place] [address] Chino Carrillo PA-C [address] [place] [address] 03/31/2025 4:00 PM EDT Office Visit Nephrology, [facility] [address] [facility] [place] [address] Fernando Reina MD [address] [facility] [place] [address] 04/18/2025 10:30 AM EDT Office Visit Gastroenterology, [facility] [address] [place] [address] Ren Pineda CRNP [address] [place] [address] 06/02/2025 10:00 AM EDT Office Visit Family [address] [place] [phone] Krystian Palomo MD [address] [place] [address] [place] [address] 09/11/2025 2:00 PM EST Imaging Radiology [address] [place] [address] Scheduled Procedures Name Priority Associated Diagnoses Date/Ti [...] 09/20/2024 09/20/2023, , 03/16/2021, Additional history exists COVID-19 Vaccine (2023- season) 2024 09/09/2024, 10/18/2021, 03/08/2021, Additional history exists HbA1c 06/05/2025 12/06/2024, 03/31, 01/05/2024, Additional history exists Depression Screening 09/09/2025 09/09/2024 GFR 12/11/2025 12/11/2024, 11/30, 12/06/2024, Additional history exists Lipid Panel 09/18/2028 09/18/2023, 05/31, 03/09/2022, Additional history exists Colonoscopy 01/10/2029 01/11/2024, 08/0 06/2019, 05/21/2010 Colorectal Cancer Screening 01/10/2029 Hepatitis B Vaccine Completed 12/06/2023, 07/05/2023, 06/06/2023, Additional history exists RETIRED - COLONOSCOPY-EVERY 5 YRS AGES 18-100 Discontinued 01/11/2024, 06/07/2019, 05/21/2010 Influenza Vaccine (FLU shot) Completed 07/30/2024, 07/30/2023, 06/30/2022, Additional history exists HPV (Gardasil) Vaccine Aged Out No lo nger eligible based on patient's age to complete this topic MENINGOCOCCAL (MENACTRA/MENVEO) Aged Out No longer eligible based on patient's age to complete this topic Meningitis B Vaccine (Bexsero/Trumemba) Aged Out No longer eligible based on patient's age to complete this topic documented as of this encounter Medical Devices Implanted Type Area Motors Assembler Device Identifier Shelf Expiration Date Model / Serial / Lot Lipiodol Injection - [id number] Implanted:Qty: 1 on 08/02/2023 at [facility] [employer] 04/28/2026 11747-64 [id number] Syr Pf 2ml Embospheres 100-300 - [id number] Implanted:Qty: 1 on 08/02/2023 at [facility] [employer] [id number] 02/26/2026 S220GH / / [id number] Syr Pf 2ml Embospheres 100-300 - [id number] Implanted:Qty: 1 on 04/11/2024 at [facility] [employer] [id number] 12/27/2026 S220GH / / [id number] Lipiodol Injection - [id number] Implanted:Qty: 1 on 04/11/2024 at [facility] EPIS [id number] documented as of this encounter Advance Directives * Full Code (Latest Code Status on File) Date Activated Date Inactivated Comments 12/05/2024 11:24 PM 12/07/2024 5:18 PM This order re flects the patients wishes and were consensually agreed upon. Question Answer Comments Discussion of Advance Directives occurred with: Patient Care Teams Serology Technician Relationship Specialty Start Date End Date Krystian Palomo MD [address] [place] [address] [place] [phone] PCP - General Family Medicine 12/22/23 documented as of this encounter
--- OUTSIDE RECORDS SUMMARY | 2024-12-28 20:37 | External Medical Summary | Summary of Care ---
Author Name Unknown Organization [facility] Address [address] [facility] [place] [address] Phone [phone] Care Team Providers Care Director Of Medicare Name Role Phone Krystian Palomo MD Primary Care Provide r Encounter Details Date Type Department Care Team (Late st Contact Info) Description 12/24/2024 Result Scan Unspecified Department Ren Pineda CRNP [address] [place] [address] <No scans attached> Allergies Active Allergy Reactions Criticality Noted Date Comments Aspirin 01/28/2022 Other reaction(s): bloody nose Salicylates 08/08/2001 nose bleeds documented as of this encounter (statuses as of 12/25/2024) Medications Multivitamin Adult Oral Tablet daily . [...] bedtime. 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 Answer Date of Assessment Author No 12/05/2024 10:37 PM Lucía Taylor RN * Are you blind or do [...] Lucía Taylor RN documented in this encounter Plan of Treatment Upcoming Encounters Date Type Department Care Team (Late st Contact Info) Description 12/26/2024 9:00 AM EST Office Visit Pharmacy, [address] [place] [address] [place] [address] 01/14/2025 10:30 AM EDT Office Visit Gastroenterology, [facility] [address] [place] [address] Ren Pineda CRNP [address] [place] [address] 03/10/2025 7:20 AM EDT Office Visit Family Medicine [address] [place] [phone] Krystian Palomo MD [address] [place] [address] [place] [address] 03/20/2025 10:30 AM EDT Office Visit Cardiology, [facility] [address] [facility] [place] [address] Chino Carrillo PA-C [address] [place] [address] 03/31/2025 4:00 PM EDT Office Visit Nephrology, [facility] [address] [place] [address] Fernando Reina MD [address] [place] [address] 04/18/2025 10:30 AM EDT Office Visit [facility]astroenterology, [facility] [place] [address] Ren Pineda CRNP 132 [facility] [place] [address] 06/02/2025 10:00 AM EDT Office Visit Family Medicine [address] [place] [phone] Krystian Palomo MD [address] [place] [address] [place] [address] 09/11/2025 2:00 PM EST Imaging Radiology [address] [place] [address] Scheduled Procedures Name Priority Associated Diagnoses Date/Ti [...] , 03/16/2021, Additional history exists COVID-19 Vaccine ( season) 2024 09/09/2024, 10/18/2021, 03/08/2021, Additional history [...] encounter Medical Devices Implanted Type Area Wheel Aligner Device Identifier Shelf Expiration Date Model / Serial / Lot Lipiodol Injection - [id number] Implanted:Qty: 1 on 08/02/2023 at [facility] [employer] 04/28/2026 [id number] Syr Pf 2ml Embospheres 100-300 - [id number] Implanted:Qty: 1 on 08/02/2023 at [facility] [employer] [id number] 02/26/2026 S220GH / / [id number] Syr Pf 2ml Embospheres 100-300 - [id number] Implanted:Qty: 1 on 04/11/2024 at [facility] [employer] [id number] 12/27/2026 S220GH / / [id number] Lipiodol Injection - [id number] Implanted:Qty: 1 on 04/11/2024 at [facility] [employer] [id number] documented as of this encounter Procedures Procedure Name Priority Date/Time Associated Diagnosis Comments OUTSIDE LAB RESULTS 12/24/2024 RADIOLOGY SCANNED RESULT 12/24/2024 documented in this encounter Results * RADIOLOGY SCANNED RESULT (12/24/2024) 12/24/2024 us [facility] Final Result * OUTSIDE LAB RESULTS (12/24/2024) 12/24/2024 us [facility] Final Resu lt documented in this encounter Advance Directives * Full Code (Latest Code Status on File) Date Activated Date Inactivated Comments 12/05/2024 11:24 PM 12/07/2024 5:18 PM This order re flects the patients wishes and were consensually agreed upon. Question Answer Comments Discussion of Advance Directives occurred with: Patient Care Teams Director Of Medicare Relationship Specialty Start Date End Date Krystian Palomo MD [address] [place] [address] [place] [phone] PCP - General Family Medicine 12/22/23 documented as of this encounter
--- OUTSIDE RECORDS SUMMARY | 2024-12-28 20:37 | External Medical Summary | Summary of Care ---
Author Name Unknown Organization [facility] Address [address] [place] [address] Phone [phone] Care Team Providers Care Senior Contracts Manager Name Role Phone Krystian Palomo MD Primary Care Provide r Reason for Visit * Reason Onset Date Comments Scheduling 09/23/2024 Encounter Details Date Type Department Care Team ([facility] st Contact Info) Description 09/23/2024 Telephone Interventional Radiology, [address] [address] Tram Zaragoza, ELOISE Scheduling Allergies Active Allergy Reactions Criticality Noted Date Comments Aspirin 01/28/2022 Other reaction(s): bloody nose Salicylates 08/08/2001 nose bleeds documented as of this encounter (statuses as of 12/24/2024) Medications Multivitamin Adult Oral Tablet daily . [...] bedtime. Active rifAXIMin 550 MG Oral Tablet (Xifaxan)Indications [...] Tablet (Proamatine)Indicati ons:at hosp d/c 07.06.24 Take 3 Tablets by mouth in the morning and 3 Tablets at noon and 3 Tablets in the evening. 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 07/05/2023 Hepatic encephalopathy 03/28/2022 Overview (12/06/2022): admitted [facility], ammonia 110 [...] as of this encounter (statuses as of 12/24/2024) Resolved Problems Problem Noted Date Diagnosed Date [...] as of this encounter (statuses as of 12/24/2024) Immunizations Name Administration Dates Next Due COVID-19 [...] file Not on file 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 Pt verbalized understanding of instructions and had no further questions at this time. Patient identified by: name and date of Person taught: Patient METHOD: Lecture-telephone interview PATIENT INSTRUCTIONS GIVEN: - No food or fluid restrictions prior procedure Location and check-in instructions Verbalizes understanding of education: Yes Procedure date at time of Imaging Encounter: 10/04 1030 What procedure is patient having? US guided left thyroid nodule biopsy Laterality confirmed as Left The Patient was given the opportunity to ask questions concerning the procedure. Signature: Tram Zaragoza RN 09/23/2024 documented in this encounter Plan of Treatment Upcoming Encounters Date Type Department Care Team (Late st Contact Info) Description 12/26/2024 9:00 AM EST Office Visit Pharmacy, [address] [place] [address] [place] [address] 01/14/2025 10:30 AM EDT Office Visit Gastroenterology, [facility] [address] [place] [address] Ren Pineda CRNP [address] [place] [address] 03/10/2025 7:20 AM EDT Office Visit Family Medicine [address] [place] [phone] Krystian Palomo MD [address] [place] [address] [place] [address] 03/20/2025 10:30 AM EDT [facility], [facility] [place] [address] Chino Carrillo PA-C [address] [facility] [place] [address] 03/31/2025 4:00 PM EDT Office Visit Nephrology, [facility] [address] [facility] [place] [address] Fernando Reina MD [address] [place] [address] 04/18/2025 10:30 AM EDT Office [facility], [facility] [place] [address] Ren Pineda CRNP 132 [facility] [place] [address] 06/02/2025 10:00 AM EDT Office Visit Family Medicine [address] [place] [phone] Krystian Palomo MD [address] [place] [address] [place] [address] 09/11/2025 2:00 PM EST Imaging Radiology [address] [place] [address] Scheduled Procedures Name Priority Associated Diagnoses Date/Ti [...] encounter Medical Devices Implanted Type Area Manager Document Device Identifier Shelf Expiration Date Model / Serial / Lot Lipiodol Injection - [id number] Implanted:Qty: 1 on 08/02/2023 at [facility] [employer] 04/28/2026 [id number] Syr Pf 2ml Embospheres 100-300 - [id number] Implanted:Qty: 1 on 08/02/2023 at [facility] [employer] [id number] 02/26/2026 S220GH / / [id number] Syr Pf 2ml Embospheres 100-300 - [id number] Implanted:Qty: 1 on 04/11/2024 at [facility] [employer] [id number] 12/27/2026 S220GH / / [id number] Lipiodol Injection - [id number] Implanted:Qty: 1 on 04/11/2024 at [facility] [employer] [id number] documented as of this encounter Advance Directives * Full Code (Latest Code Status on File) Date Activated Date Inactivated Comments 12/05/2024 11:24 PM 12/07/2024 5:18 PM This order re flects the patients wishes and were consensually agreed upon. Question Answer Comments Discussion of Advance Directives occurred with: Patient Care Teams Senior Contracts Manager Relationship Specialty Start Date End Date Krystian Palomo MD [address] [place] [address] [place] [phone] PCP - General Family Medicine 12/22/23 documented as of this encounter
--- OUTSIDE RECORDS SUMMARY | 2024-12-28 20:38 | External Medical Summary | Summary of Care ---
Author Name Unknown Organization [facility] Address [address] [place] [address] Phone [phone] Care Team Providers Care Qa Engineer Name Role Phone Krystian Palomo MD Primary Care Provide r Encounter Details Date Type Department Care Team (Latest Contact Info) Description 12/02/2024 8:50 AM EST - 12/02/2024 11:59 PM EST Hospital Encounter Radiology Film File [address] [place] [address] Discharge Disposition: Home - Self Care Allergies Active Allergy Reactions Criticality Noted Date Comments Aspirin 01/28/2022 Other reaction(s): bloody nose Salicylates 08/08/2001 nose bleeds documented as of this encounter (statuses as of 12/19/2024) Medications Multivitamin Adult Oral Tablet daily . [...] skin in the morning. 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 07/05/2023 Hepatic encephalopathy 03/28/2022 Overview (12/06/2022): admitted [facility], ammonia 110 Aortic stenosis, moderate 01/21/2022 [...] as of this encounter (statuses as of 12/19/2024) Resolved Problems Problem Noted Date Diagnosed Date [...] as of this encounter (statuses as of 12/19/2024) Immunizations Name Administration Dates Next Due COVID-19 [...] file Not on file 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 [address] [place] [phone] Jayla Armstrong MD [address] [place] [address] 02/05/2025 11:30 AM EDT Office Visit Gastroenterology, [facility] [address] [place] [address] Ren Pineda CRNP [address] [place] [address] 03/11/2025 2:40 PM EDT Office Visit Family [address] [place] [address] Krystian Palomo MD [address] [place] [address] [place] [address] 03/20/2025 10:30 AM EDT Office Visit Cardiology, [facility] [place] [address] Chino Carrillo PA-C [address] [facility] [place] [address] 03/31/2025 4:00 PM EDT Office Visit Nephrology, [facility] [address] [place] [address] Fernando Reina MD [address] [place] [address] 04/18/2025 10:30 AM EDT Office Visit Gastroenterology, [facility] [address] [place] [place] [address] Ren Pineda CRNP [address] [place] [address] 06/02/2025 10:00 AM EDT Office Visit Family Medicine [address] [place] [phone] Krystian Palomo MD [address] [place] [address] [place] [address] 09/11/2025 2:00 PM EST Imaging Radiology [address] [place] [address] Scheduled Procedures Name Priority Associated Diagnoses Date/Ti [...] 03/08/2021, Additional history exists HbA1c 06/05/2025 12/06/2024, 0610/2023, 01/05/2024, Additional history exists Depression Screening 09/09/2025 [...] encounter Medical Devices Implanted Type Area Machine Applicator Cementer Device Identifier Shelf Expiration Date Model / Serial / Lot Lipiodol Injection - [id number] Implanted:Qty: 1 on 08/02/2023 at [facility] 04/28/2026 [id number] \[id number] Syr Pf 2ml Embospheres 100-300 - [id number] Implanted:Qty: 1 on 08/02/2023 at [facility] [employer] [id number] 02/26/2026 S220GH / / [id number] Syr Pf 2ml Embospheres 100-300 - [id number] Implanted:Qty: 1 on 04/11/2024 at [facility] [employer] [id number] 12/27/2026 S220GH / / [id number] Lipiodol Injection - [id number] Implanted:Qty: 1 [facility] [id number] 2 / documented as of this encounter Procedures Procedure Name Priority Date/Time Associated Diagnosis Comments RADIOLOGY EXAM - US (IMAGES ONLY, NO REPORT) Routine 12/02/2024 8:50 AM EST documented in this encounter Results * RADIOLOGY EXAM - US (IMAGES ONLY, NO REPORT) (12/02/2024 8:50 AM EST) 12/02/2024 8:47 AM EST Narrative Scheduling, Silent - 12/18/2024 4:35 PM EST This is an imaging study not interpreted or resulted by a [email or web address] or [email or web address] contracted radiologist. us Ren BALDERRAMA RAD ULTRASOUND Final Resu lt documented in this encounter Advance Directives * Full Code (Latest Code Status on File) Date Activated Date Inactivated Comments 12/05/2024 11:24 PM 12/07/2024 5:18 PM This order re flects the patients wishes and were consensually agreed upon. Question Answer Comments Discussion of Advance Directives occurred with: Patient Care Teams Qa Engineer Relationship Specialty Start Date End Date Krystian Palomo MD [address] [place] [address] [place] [address] PCP - General Family Medicine 12/22/23 documented as of this encounter
--- OUTSIDE RECORDS SUMMARY | 2024-12-28 20:38 | External Medical Summary | Summary of Care ---
Author Name Unknown Organization [facility] Address [address] [place] [address] Phone [phone] Care Team Providers Care Transportation Department Head Name Role Phone Krystian Palomo MD Primary Care Provide r Reason for Visit * Reason Onset Date Comments Advice 12/13/2024 paracentesis Appointment 12/13/202412/23 Edwin add on at 10am Encounter Details Date Type Department Care Team (Late st Contact Info) Description 12/13/2024 Telephone Gastroenterology, [facility] 132 [facility] [place] [phone] Services, Scheduling [address] [place] [address] Advice (paracentesis); Appointment (12/23 T... Allergies Active Allergy Reactions Criticality Noted Date Comments Aspirin 01/28/2022 Other reaction(s): bloody nose Salicylates 08/08/2001 nose bleeds documented as of this encounter (statuses as of 12/17/2024) Medications Multivitamin Adult Oral Tablet daily . 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 Armstrong - this is the pt that we just spoke about (Dr. Armstrong offered to see him because he is a complicated liver patient) - [facility] as he lives in [place]. * Telephone Encounter - Migdalia Ramos OSA - 12/16/2024 1:35 PM EST Patient did call back he would like to be seen with Maira on 12/23 at 10am. Sorry I tried to add it on but it won't let me do it . If you can add him on and give him a call so he knows it was added on * Telephone Encounter - Maira Louis CRNP - 12/16/2024 1:29 PM EST He gets those at [facility], so please fax order there. * Addendum Note - Maira Louis CRNP - 12/16/2024 1:29 PM ESTAddended by: MAIRA LOUIS on: 12/16/2024 01:29 PM Modules accepted: Orders * Addendum Note - Desire Melo RN - 12/16/2024 12:08 PM ESTAddended by: DESIRE MELO on: 12/16/2024 12:08 PM Modules accepted: Orders * Telephone Encounter - Maira Louis CRNP - 12/16/2024 10:54 AM EST I tried to reach pt by phone to discuss: No answer, left this message. Can do paracentesis Q 5 days short term as a bridge to transplant but not a good long ter solution.TIPS may be a better alf solution, but would need to go [place] [facility] this [facility] procedure. ? Has he been contacted by radiation to start tx on the liver cancer? A central scheduler will reach out to him to arrange an office or video visit to go over these issues. Nurses - please change paracentesis orders to every 5 days, but keep the amounts, albumin after CBC, INR prior the same. Please send these orders to me to sign. Schedulers - please reach out to him to arrange an office visit or video visit. I could add him on MondayDec 23 at 10 or 11 AM or 4PM, or Monday at 4PM. * Telephone Encounter - Gisela Saenz OSA - 12/13/2024 3:30 PM EST Pt is calling to see if he can get the paracentesis drained every 5 days instead of every 10 days to keep his belly button/stitches dry. Pt would like to have this done at [facility]. Pt would like acall back. documented in this encounter Plan of Treatment Upcoming Encounters Date Type Department Care Team (Late st Contact Info) Description 12/26/2024 9:00 AM EST Office Visit Pharmacy, [address] [place] [address] [place] [address] 01/13/2025 8:40 AM EDT Office Visit Family [address] [place] [phone] Krystian Palomo MD [address] [place] [address] [place] [address] 03/11/2025 2:40 PM EDT Office Visit Family [address] [place] [address] Krystian Palomo MD [address] [place] [address] [place] [address] 03/20/2025 10:30 AM EDT Office Visit Cardiology, [facility] [address] [place] [address] Chino Carrillo PA-C [address] [place] [address] 03/31/2025 4:00 PM EDT Office Visit Nephrology, [facility] [place] [address] [place] [address] Fernando Reina MD [address] [place] [address] 04/18/2025 10:30 AM EDT Office Visit Gastroenterology, [facility] [address] [place] [address] Maira Louis CRNP [address] [place] [address] 06/02/2025 10:00 AM EDT Office Visit Family Medicine [address] [place] [phone] Krystian Palomo MD [address] [place] [address] [place] [address] 09/11/2025 2:00 PM EST Imaging Radiology [address] [place] [address] Scheduled Orders Name Type Priority Associated Diagnoses Orde r Schedule US ABDOMINAL PARACENTESIS Medical Imaging Routine Cirrhosis of liver with ascites, unspecified hepatic cirrhosis type (HCC) 36 Occurrences starting 12/16/2024 until 01/13/2026 Scheduled Procedures Name Priority Associated Diagnoses Date/Ti [...] 03/09/2022, Additional history exists Colonoscopy 01/10/2029 01/11/2024, 08/06/2019, 05/21/2010 Colorectal Cancer Screening 01/10/2029 Hepatitis B [...] encounter Medical Devices Implanted Type Area Foot Cutter Device Identifier Shelf Expiration Date Model / Serial / Lot Lipiodol Injection - [id number] Implanted:Qty: 1 on 08/02/2023 at [facility] [employer] 04/28/2026 [id number] \[id number] Syr Pf 2ml Embospheres 100-300 - [id number] Implanted:Qty: 1 on 08/02/2023 at [facility] [employer] [id number] 02/26/2026 S220GH / / [id number] Syr Pf 2ml Embospheres 100-300 - [id number] Implanted:Qty: 1 on 04/11/2024 at [facility] [employer] [id number] 12/27/2026 S220GH / / [id number] Lipiodol Injection - [id number] Implanted:Qty: 1 on 04/11/2024 at [facility] [employer] [address]26 documented as of this encounter Visit Diagnoses Diagnosis Cirrhosis of liver with ascites, unspecified hepatic cirrhosis type (HCC)- Primary documented in this encounter Advance Directives * Full Code (Latest Code Status on File) Date Activated Date Inactivated Comments 12/05/2024 11:24 PM 12/07/2024 5:18 PM This order re flects the patients wishes and were consensually agreed upon. Question Answer Comments Discussion of Advance Directives occurred with: Patient Care Teams Transportation Department Head Relationship Specialty Start Date End Date Krystian Palomo MD [address] [place] [address] [place] [address] PCP - General Family Medicine 12/22/23 documented as of this encounter
--- OUTSIDE RECORDS SUMMARY | 2024-12-28 20:38 | External Medical Summary | Summary of Care ---
Author Name Unknown Organization [facility] Address [address] [place] [address] Phone [phone] Care Team Providers Care Supervisor Rod Placing Name Role Phone Krystian Palomo MD Primary Care Provide r Reason for Visit * Reason Onset Date Comments Advice 12/13/2024 paracentesis Appointment 12/13/202412/23 Edwin add on at 10am Encounter Details Date Type Department Care Team (Late st Contact Info) Description 12/13/2024 Telephone Gastroenterology, [facility] 132 [facility] [place] [phone] Services, Scheduling [address] [place] [address] Advice (paracentesis); Appointment (12/23 T... 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 Order faxed. * Telephone Encounter - Maira Louis CRNP - 12/16/2024 3:54 PM EST I'll see him 12/[address] Armstrong - this is the pt that we just spoke about (Dr. Armstrong offered to see him because he is a complicated liver patient) - he would need [facility] as he lives in [place]. * Telephone Encounter - Migdalia Ramos OSA [...] 1:29 PM EST He gets those at [facility], so please fax order there. * [...] long ter solution.TIPS may be a better usp solution, but would need to go to [place] for this OP procedure. ? Has he been contacted by radiation to start tx on the liver cancer? A production scheduler will reach out to him to [...] would like to have this done at [facility]. Pt would like acall back. documented in this encounter Plan of Treatment Upcoming Encounters Date Type Department Care Team (Late st Contact Info) Description 12/23/2024 10:00 AM EST Office Visit Gastroenterology, [facility] 132 [facility] [place] [address] Maira Louis CRNP [address] [facility] [place] [address] 12/26/2024 9:00 AM EST Office Visit Pharmacy, [address] [place] [address] [place] [address] 01/13/2025 8:40 AM EDT Office Visit Family Medicine [address] [place] [phone] Krystian Palomo MD [address] [place] [address] [place] [address] 03/11/2025 2:40 PM EDT Office Visit [address] [place] [phone] Krystian Palomo MD [address] [place] [address] [place] [address] 03/20/2025 10:30 AM EDT Office Visit Cardiology, [facility] [address] [place] [address] Chino Carrillo PA-C [address] [place] [address] 03/31/2025 4:00 PM EDT Office Visit Nephrology, [facility] [address] [place] [address] Fernando Reina MD [address] [place] [address] 04/18/2025 10:30 AM EDT Office Visit Gastroenterology, [facility] [address] [place] [address] Maira Louis CRNP [address] [place] [address] 06/02/2025 10:00 AM EDT Office Visit [address] [place] [phone] Krystian Palomo MD [address] [place] [address] [place] [address] 09/11/2025 2:00 PM EST Imaging Radiology [address] [place] [address] Scheduled Procedures Name Priority Associated Diagnoses Date/Ti [...] this encounter Medical Devices Implanted Type Area Ict Development Manager Device Identifier Shelf Expiration Date Model / Serial / Lot Lipiodol Injection - [id number] Implanted:Qty: 1 on 08/02/2023 at [facility] [employer] 04/28/2026 [id number] Syr Pf 2ml Embospheres 100-300 - [id number] Implanted:Qty: 1 on 08/02/2023 at [facility] [employer] [id number] 02/26/2026 S220GH / / [id number] Syr Pf 2ml Embospheres 100-300 - [id number] Implanted:Qty: 1 on 04/11/2024 at [facility] [employer] [id number] 12/27/2026 S220GH / / [id number] Lipiodol Injection - [id number] Implanted:Qty: 1 on 04/11/2024 at [facility] [employer] [id number] documented as of this encounter Visit Diagnoses [...] Advance Directives occurred with: Patient Care Teams Supervisor Rod Placing Relationship Specialty Start Date End Date Krystian Palomo MD [address] [place] [address] [place] [address] PCP - General Family Medicine 12/22/23 documented as of this encounter
--- OUTSIDE RECORDS SUMMARY | 2024-12-28 20:38 | External Medical Summary | Summary of Care ---
Author Name Unknown Organization [facility] Address [address] [place] [address] Phone [phone] Care Team Providers Care Injection Molding Supervisor Name Role Phone Krystian Palomo MD Primary Care Provide r Reason for Visit * Reason Onset Date Comments Advice 12/12/2024 Encounter Details Date Type Department Care Team (Late st Contact Info) Description 12/12/2024 Telephone Family Medicine [address] [phone] Krystian Palomo MD [address] [place] [address] [place] [address] Advice Allergies Active Allergy Reactions Criticality Noted Date Comments Aspirin 01/28/2022 Other reaction(s): bloody nose Salicylates 08/08/2001 nose bleeds documented as of this encounter (statuses as of 12/16/2024) Medications Multivitamin Adult Oral Tablet daily . [...] morning and 1 Capsule before bedtime. 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 07/05/2023 Hepatic encephalopathy 03/28/2022 Overview (12/06/2022): admitted [facility], ammonia 110 [...] as of this encounter (statuses as of 12/16/2024) Resolved Problems Problem Noted Date Diagnosed Date [...] as of this encounter (statuses as of 12/16/2024) Immunizations Name Administration Dates Next Due COVID-19 [...] file Not on file 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 Not on file Not [...] encounter Miscellaneous Notes * Telephone Encounter - Daniella Paez CMA - 12/16/2024 2:30 PM EST 01/13/2025 at 8:40 patient aware * Telephone Encounter - Krystian Palomo MD - 12/12/2024 10:39 AM EST Discussed the results with GI team - pt's repeat Na+ is slightly better with 125 Pt has hx of hepatocellular carcinoma - in the process to est with transplant team Will help get a clinic appt with me in 1 month * Telephone Encounter - Krystian Palomo MD - 12/12/2024 10:39 AM EST ----- Message from Ren Pineda sent at 12/11/2024 9:46 AM EST ----- Regarding: Na of 124 You saw Lloyd yesterday - did have had a lot of ascites and edema? Do you think this low Na is fluid overload? If lots of fluid, I'd like to add more diuretic - though you've been helping w the diuretics and I really appreciate that. He should see liver transplant soon as well and they typically adjust diuretics. Ren ----- Message ----- From: Usha, Dev Automated Processing Sent: 12/10/2024 10:15 PM EST To: CONCHIS Concepcion documented in this encounter Plan of Treatment Upcoming Encounters Date Type Department Care Team (Late st Contact Info) Description 12/26/2024 9:00 AM EST Office Visit Pharmacy, [address] [place] [address] [place] [address] 01/13/2025 8:40 AM EDT Office Visit [address] [place] [phone] Krystian Palomo MD [address] [place] [address] [place] [address] 03/11/2025 2:40 PM EDT Office Visit Family [address] [place] [phone] Krystian Palomo MD [address] [place] [address] [place] [address] 03/20/2025 10:30 AM EDT Office Visit Cardiology, [address] [place] [address] Chino Carrillo PA-C [address] [place] [address] 03/31/2025 4:00 PM EDT Office Visit Nephrology, [facility] [address] [place] [address] Fernando Reina MD [address] [place] [address] 04/18/2025 10:30 AM EDT Office Visit Gastroenterology, [facility] [address] [place] [address] Ren Pineda CRNP [address] [place] [address] 06/02/2025 10:00 AM EDT Office Visit Family Medicine [address] [place] [phone] Krystian Palomo MD [address] [place] [address] [place] [address] 09/11/2025 2:00 PM EST Imaging Radiology [address] [place] [address] Scheduled Procedures Name Priority Associated Diagnoses Date/Ti [...] this encounter Medical Devices Implanted Type Area Shirt Line Operator Device Identifier Shelf Expiration Date Model / Serial / Lot Lipiodol Injection - [id number] Implanted:Qty: 1 on [facility]02[facility]2023 [facility] [employer] [facility] 04/28/2026 [id number] Syr Pf 2ml Embospheres 100-300 - [id number] Implanted:Qty: 1 on 08/02/2023 at [facility] [employer] [id number] 02/26/2026 S220GH / / [id number] Syr Pf 2ml Embospheres 100-300 - [id number] Implanted:Qty: 1 on 04/11/2024 at [facility] [employer] [id number] 12/27/2026 S220GH / / [id number] Lipiodol Injection - [id number] Implanted:Qty: 1 on 04/11/2024 at [facility] [employer] [id number] documented as of this encounter Advance Directives * Full Code (Latest Code Status on File) Date Activated Date Inactivated Comments 12/05/2024 11:24 PM 12/07/2024 5:18 PM This order re flects the patients wishes and were consensually agreed upon. Question Answer Comments Discussion of Advance Directives occurred with: Patient Care Teams Injection Molding Supervisor Relationship Specialty Start Date End Date Krystian Palomo MD [address] [place] [address] [place] [address] PCP - General Family Medicine 12/22/23 documented as of this encounter
--- OUTSIDE RECORDS SUMMARY | 2024-12-28 20:38 | External Medical Summary | Summary of Care ---
Author Name Unknown Organization [facility] Address [address] [place] [facility] [place] [address] Phone [phone] Care Team Providers Care Dip Unit Operator Name Role Phone Krystian Palomo MD Primary Care Provide r Encounter Details Date Type Department Care Team (Late st Contact Info) Description 12/02/2024 Orders Only Gastroenterology, [facility] [address] [place] [address] Ren Pineda CRNP [address] [place] [address] Allergies Active Allergy Reactions Criticality Noted Date [...] 07/05/2023 Hepatic encephalopathy 03/28/2022 Overview (12/06/2022): admitted [facility], ammonia 110 Aortic stenosis, moderate 01/21/2022 [...] file Not on file 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 Not on file Not on file documented as of this encounter Plan of Treatment Upcoming Encounters Date Type Department Care Team (Late st Contact Info) Description 12/26/2024 9:00 AM EST Office Visit Pharmacy, [address] [place] [address] [place] [address] 01/13/2025 8:40 AM EDT Office Visit [address] [phone] Krystian Palomo MD [address] [place] [address] [place] [address] 02/05/2025 11:30 AM EDT Office Visit Gastroenterology, [facility] [address] [place] [address] Ren Pineda CRNP [address] [place] [address] 03/11/2025 2:40 PM EDT Office Visit [address] [phone] Krystian Palomo MD [address] [place] [address] [place] [address] 03/20/2025 10:30 AM EDT Office Visit Cardiology, [facility] [address] [place] [address] Chino Carrillo PA-C [address] [place] [address] 03/31/2025 4:00 PM EDT Office Visit Nephrology, [facility] [address] [place] [address] Fernando Reina MD [address] [place] [address] 04/18/2025 10:30 AM EDT Office Visit Gastroenterology, [facility] [address] [place] [address] Ren Pineda CRNP [address] [place] [address] 06/02/2025 10:00 AM EDT Office Visit Family Medicine [address] [place] [phone] Krystian Palomo MD [address] [place] [address] [place] [address] 09/11/2025 2:00 PM EST Imaging Radiology [address] [place] [address] Scheduled Procedures Name Priority Associated Diagnoses Date/Ti [...] this encounter Medical Devices Implanted Type Area Tube Coater Device Identifier Shelf Expiration Date Model / Serial / Lot Lipiodol Injection - [id number] Implanted:Qty: 1 on 08/02/2023 at [facility] [employer] 04/28/2026 [id number] Syr Pf 2ml Embospheres 100-300 - [id number] Implanted:Qty: 1 on 08/02/2023 at [facility] [employer] [id number] 02/26/2026 S220GH / / [id number] Syr Pf 2ml Embospheres 100-300 - [id number] Implanted:Qty: 1 on 04/11/2024 at [facility] [employer] [id number] 12/27/2026 S220GH / / [id number] Lipiodol Injection - [id number] Implanted:Qty: 1 on 04/11/2024 at [facility] [place] [address] documented as of this encounter Procedures Procedure [...] study not interpreted or resulted by a [facility] or [employer] contracted radiologist. us Ren [facility] RAD ULTRASOUND Final Resu lt documented in this encounter Advance Directives * Full Code (Latest Code Status on File) Date Activated Date Inactivated Comments 12/05/2024 11:24 PM 12/07/2024 5:18 PM This order re flects the patients wishes and were consensually agreed upon. Question Answer Comments Discussion of Advance Directives occurred with: Patient Care Teams Dip Unit Operator Relationship Specialty Start Date End Date Krystian Palomo MD [address] [place] [address] [place] [address] PCP - General Family Medicine 12/22/23 documented as of this encounter
--- OUTSIDE RECORDS SUMMARY | 2024-12-28 20:38 | External Medical Summary | Summary of Care ---
Author Name Unknown Organization [facility] Address [address] [place] [address] Phone [phone] Care Team Providers Care Media Relations Specialist Name Role Phone Krystian Palomo MD Primary Care Provide r Reason for Visit * Reason Onset Date Comments Advice 12/13/2024 paracentesis Appointment 12/13/202412/23 Edwin add on at 10am Encounter Details Date Type Department Care Team (Late st Contact Info) Description 12/13/2024 Telephone Gastroenterology, [facility] [address] [facility] [place] [phone] Services, Scheduling [address] [place] [address] Advice (paracentesis); Appointment (12/23 T... 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 * Telephone Encounter - Migdalia Ramos OSA [...] 1:29 PM EST He gets those at [facility], so please fax order there. * Addendum Note - Maira Louis CRNP - 12/16/2024 1:29 PM ESTAddended by: MAIRA LOUIS on: 12/16/2024 01:29 PM Modules accepted: Orders * Addendum Note - Desire Melo RN - 12/16/2024 12:08 PM ESTAddended by: EDSIRE MELO on: 12/16/2024 12:08 PM Modules accepted: Orders * Telephone Encounter - Maira Louis CRNP - 12/16/2024 10:54 AM EST I tried to reach pt by phone to discuss: No answer, left this message. Can do paracentesis Q 5 days short term as a bridge to transplant but not a good long ter solution.TIPS may be a better assisted solution, but would need to go to [place] for this OP procedure. ? Has he been contacted by radiation to start tx on the liver cancer? A imaging scheduler will reach out to him to [...] would like to have this done at [facility]. Pt would like acall back. documented in this encounter Plan of Treatment Upcoming Encounters Date Type Department Care Team (Late st Contact Info) Description 12/23/2024 10:00 AM EST Office Visit Gastroenterology, [facility] 132 [facility] [place] [address] Maira Louis CRNP 132 [facility] [place] [address] 12/26/2024 9:00 AM EST Office Visit Pharmacy, [address] [place] [address] [place] [address] 01/13/2025 8:40 AM EDT Office Visit Family Medicine [address] [place] [phone] Krystian Palomo MD [address] [place] [address] [place] [address] 03/11/2025 2:40 PM EDT Office Visit [address] [place] [phone] Krystian Palomo MD [address] [place] [address] [place] [address] 03/20/2025 10:30 AM EDT Office Visit Cardiology, [facility] [address] [place] [address] Chino Carrillo PA-C [address] [place] [address] 03/31/2025 4:00 PM EDT Office Visit Nephrology, [facility] [address] [place] [address] Fernando Reina MD [address] [place] [address] 04/18/2025 10:30 AM EDT Office Visit Gastroenterology, [facility] [address] [place] [address] Maira Louis CRNP [address] [place] [address] 06/02/2025 10:00 AM EDT Office Visit [address] [place] [phone] Krystian Palomo MD [address] [place] [address] [place] [address] 09/11/2025 2:00 PM EST Imaging Radiology [address] [place] [address] Scheduled Procedures Name Priority Associated Diagnoses Date/Ti [...] this encounter Medical Devices Implanted Type Area Consultant Electronics Device Identifier Shelf Expiration Date Model / Serial / Lot Lipiodol Injection - [id number] Implanted:Qty: 1 on 08/02/2023 at [facility] [employer] 04/28/2026 [id number] Syr Pf 2ml Embospheres 100-300 - [id number] Implanted:Qty: 1 on 08/02/2023 at [facility] [employer] [id number] 02/26/2026 S220GH / / [id number] Syr Pf 2ml Embospheres 100-300 - [id number] Implanted:Qty: 1 on 04/11/2024 at [facility] [employer] [id number] 12/27/2026 S220GH / / [id number] Lipiodol Injection - [id number] Implanted:Qty: 1 on 04/11/2024 at [facility] [employer] 59905-06 documented as of this encounter Visit Diagnoses [...] Advance Directives occurred with: Patient Care Teams Media Relations Specialist Relationship Specialty Start Date End Date Krystian Palomo MD [address] [place] [address] [place] [address] PCP - General Family Medicine 12/22/23 documented as of this encounter
--- OUTSIDE RECORDS SUMMARY | 2024-12-28 20:38 | External Medical Summary | Summary of Care ---
Author Name Unknown Organization [facility] Address [address] [place] [address] Phone [phone] Care Team Providers Care Batting Machine Operator Name Role Phone Krystian Palomo MD Primary Care Provide r Reason for Visit * Reason Onset Date Comments Advice 12/13/2024 paracentesis Appointment 12/13/202412/23 Edwin add on at 10am Encounter Details Date Type Department Care Team (Late st Contact Info) Description 12/13/2024 Telephone Gastroenterology, [facility] 132 [facility] [place] [phone] Services, Scheduling [address] [place] [address] Advice (paracentesis); Appointment (12/23 T... 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 * Telephone Encounter - Migdalia Ramos OSA [...] 1:29 PM EST He gets those at [facility], so please fax order there. * Addendum [...] long ter solution.TIPS may be a better group home solution, but would need to go to [place] for this OP procedure. ? Has he been contacted by radiation to start tx on the liver cancer? A vocal teacher will reach out to him to arrange [...] would like to have this done at [facility]. Pt would like acall back. documented in this encounter Plan of Treatment Upcoming Encounters Date Type Department Care Team (Late st Contact Info) Description 12/26/2024 9:00 AM EST Office Visit Pharmacy, [address] [place] [address] [place] [address] 01/13/2025 8:40 AM EDT Office Visit Family [address] [place] [phone] Krystian Palomo MD [address] [place] [address] [place] [address] 03/11/2025 2:40 PM EDT Office Visit Family [address] [place] [phone] Krystian Palomo MD [address] [place] [address] [place] [address] 03/20/2025 10:30 AM EDT Office Visit Cardiology, [facility] [address] [place] [address] Chino Carrillo PA-C [address] [place] [address] 03/31/2025 4:00 PM EDT Office Visit Nephrology, [facility] Jaylene [address] [place] [address] Fernando Reina MD [address] [place] [address] 04/18/2025 10:30 AM EDT Office Visit Gastroenterology, [facility] [address] [place] [address] Maira Louis CRNP [address] [place] [address] 06/02/2025 10:00 AM EDT Office Visit Family Medicine [address] [place] [phone] Krystian Palomo MD [address] [place] [address] [place] [address] 09/11/2025 2:00 PM EST Imaging Radiology [address] [place] [address] Scheduled Orders Name Type Priority Associated Diagnoses [...] this encounter Medical Devices Implanted Type Area Site Specialist Device Identifier Shelf Expiration Date Model / Serial / Lot Lipiodol Injection - [id number] Implanted:Qty: 1 on 08/02/2023 at [facility] [employer] 04/28/2026 74075-83 [id number] Syr Pf 2ml Embospheres 100-300 - [id number] Implanted:Qty: 1 on 08/02/2023 at [facility] [employer] [id number] 02/26/2026 S220GH / / [id number] Syr Pf 2ml Embospheres 100-300 - [id number] Implanted:Qty: 1 on 04/11/2024 at [facility] [employer] [id number] 12/27/2026 S220GH / / [id number] Lipiodol Injection - [id number] Implanted:Qty: 1 on 04/11/2024 at [facility] [employer] [address]1340-32 documented as of this encounter Visit Diagnoses [...] Advance Directives occurred with: Patient Care Teams Batting Machine Operator Relationship Specialty Start Date End Date Krystian Palomo MD [address] [place] [address] [place] [address] PCP - General Family Medicine 12/22/23 documented as of this encounter
--- OUTSIDE RECORDS SUMMARY | 2024-12-28 20:38 | External Medical Summary | Summary of Care ---
Author Name Unknown Organization [facility] Address [address] [facility] [place] [place] [address] Phone [phone] Care Team Providers Care Social Work Msw Name Role Phone Krystian Palomo MD Primary Care Provide r Encounter Details Date Type Department Care Team (Late st Contact Info) Description 12/19/2024 Orders Only Family Medicine [address] [phone] Krystian Palomo MD [address] [place] [address] [place] [address] Allergies Active Allergy Reactions [...] 07/05/2023 Hepatic encephalopathy 03/28/2022 Overview (12/06/2022): admitted [facility], ammonia 110 Aortic [...] file Not on file 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 Not on file Not [...] 12/26/2024 9:00 AM EST Office Visit Pharmacy, [address] [place] [address] [place] [address] 01/13/2025 8:40 AM EDT Office Visit Family Medicine [address] [place] [phone] Krystian Palomo MD [address] [place] [address] [place] [address] 02/05/2025 11:30 AM EDT Office Visit Gastroenterology, [facility] [address] [place] [address] Ren Pineda CRNP [address] [place] [address] 03/11/2025 2:40 PM EDT Office Visit [address] [place] [phone] Krystian Palomo MD [address] [place] [address] [place] [address] 03/20/2025 10:30 AM EDT Office Visit Cardiology, [facility] [address] [facility] [place] [address] Chino Carrillo PA-C [address] [place] [address] 03/31/2025 4:00 PM EDT Office Visit Nephrology, [facility] [address] [place] [address] Fernando Reina MD [address] [place] [address] 04/18/2025 10:30 AM EDT Office Visit Gastroenterology, [facility] [address] [place] [address] [facility] [place] [address] 06/02/2025 10:00 AM EDT Office Visit [address] [place] [phone] Krystian Palomo MD [address] [place] [address] [place] [address] 09/11/2025 2:00 PM EST Imaging Radiology [address] [place] [address] Scheduled Procedures Name Priority Associated Diagnoses Date/Ti [...] this encounter Medical Devices Implanted Type Area Truck Hopper Device Identifier Shelf Expiration Date Model / Serial / Lot Lipiodol Injection - [id number] Implanted:Qty: 1 on 08/02/2023 at [facility] [employer] 04/28/2026 47184-02 [id number] Syr Pf 2ml Embospheres 100-300 - [id number] Implanted:Qty: 1 on 08/02/2023 at [facility] [employer] [id number] 02/26/2026 S220GH / / [id number] Syr Pf 2ml Embospheres 100-300 - [id number] Implanted:Qty: 1 on 04/11/2024 at [facility] [employer] [id number] 12/27/2026 S220GH / / [id number] Lipiodol Injection - [id number] Implanted:Qty: 1 on 04/11/2024 at [facility] [employer] 77446-84 documented as of this encounter Procedures Procedure Name Priority Date/Time Associated Diagnosis Comments CHEMISTRY-OUTSIDE Routine 12/18/2024 documented in this encounter Results * (ABNORMAL) CHEMISTRY-OUTSIDE (12/18/2024) Not all results display below - see scan for full detail OUTSIDE LAB (SEE SCANNED REPORT) Comment:SEE SCAN - PTINR, CB CD CREATININE OUTSIDE L AB (SEE SCANNED REPORT) [...] LAB OUTSIDE LAB (SEE SCANNED REPORT) HEMOGLOBIN, [id number] LAB OUTSIDE LAB (SEE SCANNED REPORT) PHOSPHORUS-OUTSID E LAB OUTSIDE LAB (SEE SCANNED REPORT) PTH-OUTSIDE LAB OUTS LESLIE LAB (SEE SCANNED REPORT) MICROALBUMIN RATIO-OUTSIDE LAB OUTSIDE LA B (SEE SCANNED REPORT) PROTEIN, UA-OUTSIDE LAB OUTSIDE LAB (SEE SCANNED REPORT) HGB 7.9(A) 14.0 - 18.0 G/DL OUTSIDE LAB (SEE SCANNED REPORT) 12/18/2024 us Ren [facility] Final Resu lt OUTSIDE LAB (SEE SCANNED REPORT) documented in this encounter Advance Directives * Full Code (Latest Code Status on File) Date Activated Date Inactivated Comments 12/05/2024 11:24 PM 12/07/2024 5:18 PM This order re flects the patients wishes and were consensually agreed upon. Question Answer Comments Discussion of Advance Directives occurred with: Patient Care Teams Social Work Msw Relationship Specialty Start Date End Date Krystian Palomo MD [address] [place] [address] [place] [address] PCP - General Family Medicine 12/22/23 documented as of this encounter
--- OUTSIDE RECORDS SUMMARY | 2024-12-28 20:38 | External Medical Summary | Summary of Care ---
Author Name Unknown Organization [facility] Address [address] [facility] [place] [address] Phone [phone] Care Team Providers Care Head Of Mobile Name Role Phone Krystian Palomo MD Primary Care Provide r Encounter Details Date Type Department Care Team (Late st Contact Info) Description 12/05/2024 Orders Only Gastroenterology, [facility] [address] [place] [address] Ren Pineda CRNP [address] [place] [address] Allergies Active Allergy Reactions Criticality Noted Date [...] 07/05/2023 Hepatic encephalopathy 03/28/2022 Overview (12/06/2022): admitted [facility], ammonia 110 Aortic [...] file Not on file 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 Not on file Not on file documented as of this encounter Plan of Treatment Upcoming Encounters Date Type Department Care Team (Late st Contact Info) Description 12/26/2024 9:00 AM EST Office Visit Pharmacy, [address] [place] [address] [place] [address] 01/13/2025 8:40 AM EDT Office Visit [address] [phone] Krystian Palomo MD [address] [place] [address] [place] [address] 02/05/2025 11:30 AM EDT Office Visit Gastroenterology, [facility] [address] [place] [address] Ren Pineda CRNP [address] [place] [address] 03/11/2025 2:40 PM EDT Office Visit [address] [phone] Krystian Palomo MD [address] [place] [address] [place] [address] 03/20/2025 10:30 AM EDT Office Visit Cardiology, [facility] [address] [place] [address] Chino Carrillo PA-C [address] [place] [address] 03/31/2025 4:00 PM EDT Office Visit Nephrology, [facility] [address] [place] [address] Fernando Reina MD [address] [place] [address] 04/18/2025 10:30 AM EDT Office Visit Gastroenterology, [facility] [address] [place] [address] Ren Pineda CRNP [address] [place] [address] 06/02/2025 10:00 AM EDT Office Visit Family Medicine [address] [place] [phone] Krystian Palomo MD [address] [place] [address] [place] [address] 09/11/2025 2:00 PM EST Imaging Radiology [address] [place] [address] Scheduled Procedures Name Priority Associated Diagnoses Date/Ti [...] this encounter Medical Devices Implanted Type Area Data Technician Device Identifier Shelf Expiration Date Model / Serial / Lot Lipiodol Injection - [id number] Implanted:Qty: 1 on 08/02/2023 at [facility] [employer] 04/28/2026 10119-52 [id number] Syr Pf 2ml Embospheres 100-300 - [id number] Implanted:Qty: 1 on 08/02/2023 at [facility] [employer] [id number] 02/26/2026 S220GH / / [id number] Syr Pf 2ml Embospheres 100-300 - [id number] Implanted:Qty: 1 on 04/11/2024 at [facility] [employer] [id number] 12/27/2026 S220GH / / [id number] Lipiodol Injection - [id number] Implanted:Qty: 1 on 04/11/2024 at [facility] [employer] [id number] documented as of this encounter Procedures Procedure Name Priority Date/Time Associated Diagnosis Comments RADIOLOGY EXAM - CT (IMAGES ONLY, NO REPORT) Routine 12/05/2024 2:35 PM EST documented in this encounter Results * RADIOLOGY EXAM - CT (IMAGES ONLY, NO REPORT) (12/05/2024 2:35 PM EST) 12/05/2024 2:31 PM EST Narrative Scheduling, Silent - 12/18/2024 4:33 PM EST This is an imaging study not interpreted or resulted by a [facility] or [employer] contracted radiologist. us Ren BALDERRAMA RAD CT Final Resu lt documented in this encounter Advance Directives * Full Code (Latest Code Status on File) Date Activated Date Inactivated Comments 12/05/2024 11:24 PM 12/07/2024 5:18 PM This order re flects the patients wishes and were consensually agreed upon. Question Answer Comments Discussion of Advance Directives occurred with: Patient Care Teams Head Of Mobile Relationship Specialty Start Date End Date Krystian Palomo MD [address] [place] [address] [place] [address] PCP - General Family Medicine 12/22/23 documented as of this encounter
--- OUTSIDE RECORDS SUMMARY | 2024-12-28 20:38 | External Medical Summary | Summary of Care ---
Author Name Unknown Organization [facility] Address [address] [place] [address] Phone [phone] Care Team Providers Care Tool Room Machinist Name Role Phone Krystian Palomo MD Primary Care Provide r Reason for Visit * Reason Onset Date Comments Advice 12/12/2024 Encounter Details Date Type Department Care Team (Late st Contact Info) Description 12/12/2024 Telephone Family Medicine [address] [phone] Krystian Palomo MD [address] [place] [address] [place] [address] Advice Allergies Active Allergy Reactions [...] morning and 1 Capsule before bedtime. 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 Not on file [...] 12/26/2024 9:00 AM EST Office Visit Pharmacy, [address] [place] [address] [place] [address] 01/13/2025 8:40 AM EDT Office Visit [address] [place] [phone] Krystian Palomo MD [address] [place] [address] [place] [address] 03/11/2025 2:40 PM EDT Office Visit Family [address] [place] [phone] Krystian Palomo MD [address] [place] [address] [place] [address] 03/20/2025 10:30 AM EDT Office Visit Cardiology, [address] [place] [address] Chino Carrillo PA-C [address] [place] [address] 03/31/2025 4:00 PM EDT Office Visit Nephrology, [facility] [address] [place] [address] Fernando Reina MD [address] [place] [address] 04/18/2025 10:30 AM EDT Office Visit Gastroenterology, [facility] [address] [place] [address] Ren Pineda CRNP [address] [place] [address] 06/02/2025 10:00 AM EDT Office Visit Family Medicine [address] [place] [address] Krystian Palomo MD [address] [place] [address] [place] [address] 09/11/2025 2:00 PM EST Imaging Radiology [address] [place] [address] Scheduled Procedures Name Priority Associated Diagnoses Date/Ti [...] this encounter Medical Devices Implanted Type Area Special Agent Device Identifier Shelf Expiration Date Model / Serial / Lot Lipiodol Injection - [id number] Implanted:Qty: 1 on [facility]02[facility]2023 [facility]/28/2026 00325-41 [id number] Syr Pf 2ml Embospheres 100-300 - [id number] Implanted:Qty: 1 on 08/02/2023 at [facility] [employer] [id number] 02/26/2026 S220GH / / [id number] Syr Pf 2ml Embospheres 100-300 - [id number] Implanted:Qty: 1 on 04/11/2024 at [facility] [employer] [id number] 12/27/2026 S220GH / / [id number] Lipiodol Injection - [id number] Implanted:Qty: 1 on 04/11/2024 at [facility] [employer] [id number] documented as of this encounter Advance Directives * Full Code (Latest Code Status on File) Date Activated Date Inactivated Comments 12/05/2024 11:24 PM 12/07/2024 5:18 PM This order re flects the patients wishes and were consensually agreed upon. Question Answer Comments Discussion of Advance Directives occurred with: Patient Care Teams Tool Room Machinist Relationship Specialty Start Date End Date Krystian Palomo MD [address] [place] [address] [place] [address] PCP - General Family Medicine 12/22/23 documented as of this encounter
--- OUTSIDE RECORDS SUMMARY | 2024-12-28 20:38 | External Medical Summary | Summary of Care ---
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 Not on file Not on file documented as of this encounter Plan of Treatment Upcoming Encounters Date Type Department Care Team (Late st Contact Info) Description 12/26/2024 9:00 AM EST Office Visit Pharmacy, [address] [place] [address] [place] [address] 01/13/2025 8:40 AM EDT Office Visit Family Medicine [address] [place] [phone] Krystian Palomo MD [address] [place] [address] [place] [address] 01/15/2025 3:20 PM EDT [facility] [address] [place] [phone] Jayla Armstrong MD [address] [place] [address] 02/05/2025 11:30 AM EDT Office Visit Gastroenterology, [facility] [address] [place] [address] Ren Pineda CRNP [address] [place] [address] 03/11/2025 2:40 PM EDT Office Visit Family [address] [place] [phone] Krystian Palomo MD [address] [place] [address] [place] [address] 03/20/2025 10:30 AM EDT Office Visit Cardiology, [facility] [place] [address] Chino Carrillo PA-C [address] [address] 03/31/2025 4:00 PM EDT Office Visit Nephrology, [facility] [address] [place] [address] Fernando Reina MD [address] [place] [address] 04/18/2025 10:30 AM EDT Office Visit Gastroenterology, [facility] [address] [place] [place] [address] Ren Pineda CRNP [address] [place] [address] 06/02/2025 10:00 AM EDT Office Visit Family Medicine [address] [place] [phone] Krystian Palomo MD [address] [place] [address] [place] [address] 09/11/2025 2:00 PM EST Imaging Radiology [address] [place] [address] Scheduled Procedures Name Priority Associated Diagnoses Date/Ti [...] this encounter Medical Devices Implanted Type Area Communications Department Head Device Identifier Shelf Expiration Date Model / Serial / Lot Lipiodol Injection - [id number] Implanted:Qty: 1 on 08/02/2023 at [facility] 04/28/2026 [id number] Syr Pf 2ml Embospheres 100-300 - [id number] Implanted:Qty: 1 on 08/02/2023 at [facility] [employer] [id number] 02/26/2026 S220GH / / [id number] Syr Pf 2ml Embospheres 100-300 - [id number] Implanted:Qty: 1 on 04/11/2024 at [facility] [employer] [id number] 12/27/2026 S220GH / / [id number] Lipiodol Injection - [id number] Implanted:Qty: 1 on [facility]11/2024 [facility] [place] [place] [address] / documented as of this encounter [...] study not interpreted or resulted by a [facility] or [employer] contracted radiologist. us Ren BALDERRAMA RAD CT Final Resu lt documented in this encounter Advance Directives * Full Code (Latest Code Status on File) Date Activated Date Inactivated Comments 12/05/2024 11:24 PM 12/07/2024 5:18 PM This order re flects the patients wishes and were consensually agreed upon. Question Answer Comments Discussion of Advance Directives occurred with: Patient Care Teams Cut Off Saw Grader Relationship Specialty Start Date End Date Krystian Palomo MD [address] [place] [address] [place] [address] PCP - General Family Medicine 12/22/23 documented as of this encounter
--- OUTSIDE RECORDS SUMMARY | 2024-12-28 20:38 | External Medical Summary | Summary of Care ---
Author Name Unknown Organization [facility] Address [address] [place] [address] Phone [phone] Care Team Providers Care General Forecaster Name Role Phone Krystian Palomo MD Primary Care Provide r Reason for Visit * Reason Onset Date Comments Advice 12/13/2024 paracentesis Appointment 12/13/202412/23 Edwin add on at 10am Encounter Details Date Type Department Care Team (Late st Contact Info) Description 12/13/2024 Telephone Gastroenterology, [facility] 132 [facility] [place] [phone] Services, Scheduling [address] [place] [address] Advice (paracentesis); Appointment (12/23 T... 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. Order faxed. * Telephone Encounter - Maira Louis CRNP - 12/16/2024 3:54 PM EST I'll see him 12/[address] Armstrong - this is the pt that we just spoke about (Dr. Armstrong offered to see him because he is a complicated liver patient) - he would need [facility] as he lives in [place]. * Telephone Encounter - Migdalia Ramos OSA [...] 1:29 PM EST He gets those at [facility], so please fax order there. * [...] long ter solution.TIPS may be a better [place] [facility] solution, but would need to go to [place] for this OP procedure. ? Has he been contacted by radiation to start tx on the liver cancer? A net application architect will reach out to him to arrange [...] would like to have this done at [facility]. Pt would like acall back. documented in this encounter Plan of Treatment Upcoming Encounters Date Type Department Care Team (Late st Contact Info) Description 12/26/2024 9:00 AM EST Office Visit Pharmacy, [address] [place] [address] [place] [address] 01/13/2025 8:40 AM EDT Office Visit [address] [place] [phone] Krystian Palomo MD [address] [place] [address] [place] [address] 03/11/2025 2:40 PM EDT Office Visit [address] [place] [phone] Krystian Palomo MD [address] [place] [address] [place] [address] 03/20/2025 10:30 AM EDT Office Visit Cardiology, [facility] [address] [place] [address] Chino Carrillo PA-C [address] [place] [address] 03/31/2025 4:00 PM EDT Office Visit Nephrology, [facility] [address] [place] [address] Fernando Reina MD [address] [place] [address] 04/18/2025 10:30 AM EDT Office Visit Gastroenterology, [facility] [address] [place] [address] Maira Louis CRNP [address] [place] [address] 06/02/2025 10:00 AM EDT Office Visit Family Medicine [address] [place] [phone] Krystian Palomo MD [address] [place] [address] [place] [address] 09/11/2025 2:00 PM EST Imaging Radiology [address] [place] [address] Scheduled Orders Name Type Priority Associated Diagnoses [...] this encounter Medical Devices Implanted Type Area Group Director Experience Device Identifier Shelf Expiration Date Model / Serial / Lot Lipiodol Injection - [id number] Implanted:Qty: 1 on 08/02/2023 at [facility] [employer] 04/28/2026 58230-56 \[id number] Syr Pf 2ml Embospheres 100-300 - [id number] Implanted:Qty: 1 on 08/02/2023 at [facility] [employer] [id number] 02/26/2026 S220GH / / [id number] Syr Pf 2ml Embospheres 100-300 - [id number] Implanted:Qty: 1 on 04/11/2024 at [facility] [employer] [id number] 12/27/2026 S220GH / / [id number] Lipiodol Injection - [id number] Implanted:Qty: 1 on 04/11/2024 at [facility] [employer] [facility] [address] documented as of this encounter Visit Diagnoses [...] Advance Directives occurred with: Patient Care Teams General Forecaster Relationship Specialty Start Date End Date Krystian Palomo MD [address] [place] [address] [place] [phone] PCP - General Family Medicine 12/22/23 documented as of this encounter
--- OUTSIDE RECORDS SUMMARY | 2024-12-28 20:39 | External Medical Summary ---
Author Name Unknown Address Unknown Organization K01:[facility]ORY [facility] - [address] [place] [address] Laboratory Report Ordering Provider Test Date Status SARAH TRAVIS 12/10/2024 11:00:16 Final Observation Date Value Abnormality Reference (Units ) Status MYCODE SPECIMEN-SST 12/10/2024 11:00:16 Freezing of extracted DNA, whole blood and/or serum. Final Performing Location [facility] - [address] [place] [address]
--- OUTSIDE RECORDS SUMMARY | 2024-12-28 20:39 | External Medical Summary ---
Author Name Unknown Address Unknown Organization K01:[facility] - [facility] [address] [facility] [address] [place] [address] Laboratory Report Ordering Provider Test Date Status AMIRA DAVID 12/10/2024 11:00:16 Kalie l Observation Date Value Abnormality Reference (Units ) Status WBC, Total 12/10/2024 11:00:16 6.48 4.00-10.80 (K/uL) Final RBC 12/10/2024 11:00:16 2.54 4.50-5.25 (M/uL) Final Hemoglobin 12/10/2024 11:00:16 9.0 Below low normal 14.0-16.8 (g/dL) Final HCT 12/10/2024 11:00:16 27.6 Below low normal 40.0-48.4 (%) Final MCV 12/10/2024 11:00:16 108.7 82.0-99.5 (fL) Final MCH 12/10/2024 11:00:16 35.4 27.0-34.0 (pg) Final MCHC 12/10/2024 11:00:16 32.6 32.0-36.0 (g/dL) Final RDW 12/10/2024 11:00:16 19.7 11.5-15.5 (%) Final Platelets 12/10/2024 11:00:16 114 Below low normal 140-400 (K/uL) Final MPV 12/10/2024 11:00:16 11.2 6.6-11.1 (fL) Final Nucleated erythrocytes/100 leukocytes [Ratio] in Blood by Automated count 12/10/2024 11:00:16 0 <=0 (/100 WBCs) Final Performing Location LAB[facility]ORY [facility] - [address] [place] [address]
--- OUTSIDE RECORDS SUMMARY | 2024-12-28 20:39 | External Medical Summary | Summary of Care ---
Author Name Unknown Organization [facility] Address [address] [place] [address] Phone [phone] Care Team Providers Care Noc Engineer Name Role Phone Krystian Palomo MD Primary Care Provide r Reason for Visit * Reason Onset Date Comments Advice 12/13/2024 paracentesis Appointment 12/13/202412/23 Edwin add on at 10am Encounter Details Date Type Department Care Team (Late st Contact Info) Description 12/13/2024 Telephone Gastroenterology, [facility] 132 [facility] [place] [phone] Services, Scheduling [address] [place] [address] Advice (paracentesis); Appointment (12/23 T... Allergies Active [...] HCl 2.5 MG Oral Tablet (Proamatine)Indicat ions:at [facility] d/c 09.7.24 Take 3 Tablets by mouth [...] encephalopathy 03/28/2022 Overview (12/06/2022): admitted 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 * Telephone Encounter - Migdalia Ramos OSA [...] 1:29 PM EST He gets those at [facility], so please fax order there. * [...] long ter solution.TIPS may be a better correction solution, but would need to go to [place] for this OP procedure. ? Has he been contacted by radiation to start tx on the liver cancer? A consultant education will reach out to him to arrange [...] would like to have this done at [facility]. Pt would like acall back. documented in this encounter Plan of Treatment Upcoming Encounters Date Type Department Care Team (Late st Contact Info) Description 12/26/2024 9:00 AM EST Office Visit Pharmacy, [address] [place] [address] [place] [address] 01/13/2025 8:40 AM EDT Office Visit Family [address] [place] [phone] Krystian Palomo MD [address] [place] [address] [place] [address] 03/11/2025 2:40 PM EDT Office Visit Family [address] [place] [address] Krystian Palomo MD [address] [place] [address] [place] [address] 03/20/2025 10:30 AM EDT Office Visit Cardiology, [facility] [address] [place] [address] Chino Carrillo PA-C [address] [place] [address] 03/31/2025 4:00 PM EDT Office Visit Nephrology, [facility] Jaylene [address] [place] [address] Fernando Reina MD [address] [place] [address] 04/18/2025 10:30 AM EDT Office Visit Gastroenterology, [facility] [address] [place] [address] Maira Louis CRNP [address] [place] [address] 06/02/2025 10:00 AM EDT Office Visit Family Medicine [address] [place] [address] Krystian Palomo MD [address] [place] [address] [place] [address] 09/11/2025 2:00 PM EST Imaging Radiology [address] [place] [address] Scheduled Orders Name Type Priority Associated Diagnoses [...] this encounter Medical Devices Implanted Type Area Bench Hand Device Identifier Shelf Expiration Date Model / Serial / Lot Lipiodol Injection - [id number] Implanted:Qty: 1 on 08/02/2023 at [facility] [employer] 04/28/2026 10052-24 \[id number] Syr Pf 2ml Embospheres 100-300 - [id number] Implanted:Qty: 1 on 08/02/2023 at [facility] [employer] [id number] 02/26/2026 S220GH / / [id number] Syr Pf 2ml Embospheres 100-300 - [id number] Implanted:Qty: 1 on 04/11/2024 at [facility] [employer] [id number] 12/27/2026 S220GH / / [id number] Lipiodol Injection - [id number] Implanted:Qty: 1 on 04/11/2024 at [facility] [employer] [id number] documented as of this encounter Visit Diagnoses [...] Advance Directives occurred with: Patient Care Teams Noc Engineer Relationship Specialty Start Date End Date Krystian Palomo MD [address] [place] [address] [place] [address] PCP - General Family Medicine 12/22/23 documented as of this encounter
--- OUTSIDE RECORDS SUMMARY | 2024-12-28 20:39 | External Medical Summary ---
Author Name Unknown Address Unknown Organization K01:[facility] [place] - [address] [place] [address] Laboratory Report Ordering Provider Test Date Status HERIBERTO RAO 12/10/2024 11:00:16 Final Observation Date Value Abnormality Reference (Units ) Status Alpha-Fetoprotein 12/10/2024 11:00:16 18.8 Above high normal 0.0-8.3 (ng/mL) Final Performing Location [facility] - [address] [place] [address]
--- OUTSIDE RECORDS SUMMARY | 2024-12-28 20:39 | External Medical Summary ---
Author Name Unknown Address Unknown Organization K01:[facility] [place] [address] [facility] [place] [address] Laboratory Report Ordering Provider Test Date Status HERIBERTO RAO 12/10/2024 11:00:16 Final Observation Date Value Abnormality Reference (Units ) Status BUN 12/10/2024 11:00:16 17 6-20 (mg/dL) Final Creatinine 12/10/2024 11:00:16 1.0 0.6-1.2 (mg/dL) Final Glomerular filtration rate/1.73 sq M.predicted [Volume Rate/Area] in Serum, Plasma or Blood by Creatinine-based formula (CKD-EPI) 12/10/2024 11:00:16 >90 >=60 (mL/min) Final eGFR is calculated based on the CKD-EPI 2020 equation. Sodium 12/10/2024 11:00:16 124 Below low normal 135 -146 (mmol/L) Final Potassium 12/10/2024 11:00:16 3.7 3.5-5.1 (m mol/L) Final Cl 12/10/2024 11:00:16 89 Below low normal 98- 107 (mmol/L) Final CO2 12/10/2024 11:00:16 24 22-32 (mmo l/L) Final Anion gap 12/10/2024 11:00:16 11 7-15 (mmol /L) Final Glucose 12/10/2024 11:00:16 199 Above high normal 70 -120 (mg/dL) Final Albumin 12/10/2024 11:00:16 2.8 Below low normal 3.8 -5.0 (g/dL) Final AST (Aspartate aminotransferase) 12/10/2024 11:00:16 92 Above high normal 10-50 (U/L) Final Alk Phos 12/10/2024 11:00:16 131 Above high normal 35 -130 (U/L) Final Bilirubin, Total 12/10/2024 11:00:16 3.1 Above high no rmal <=1.2 (mg/dL) Final Calcium 12/10/2024 11:00:16 8.5 8.4-10.2 ( mg/dL) Final Protein 12/10/2024 11:00:16 5.7 Below low normal 6.0 -8.3 (g/dL) Final ALT (Alanine aminotransferase) 12/10/2024 11:00:16 51 Above high normal 10-50 (U/L) Final Performing Location [facility] - [address] [facility] [address]
--- OUTSIDE RECORDS SUMMARY | 2024-12-28 20:39 | External Medical Summary | Summary of Care ---
Author Name Unknown Organization [facility] Address [address] [place] [address] Phone [phone] Care Team Providers Care Radiology Interventional Physician Name Role Phone Krystain Palomo MD Primary Care Provide r Reason for Visit * Reason Onset Date Comments Hospital Follow-Up Hospital Follow-Up 12/10/2024 Encounter Details Date Type Department Care Team (Latest Contact Info) Description 12/10/2024 10:20 AM EST Office Visit Family Medicine [address] [place] [phone] Krystian Palomo MD [address] [place] [address] [place] [address] Type 2 diabetes mellitus with hemoglobin A1c goal of less than 7.0% (HCC)*; Low serum potassium; Hospital discharge follow-up; Chronic hyponatremia; HTN, goal below 140/90; 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 [...] 4050 mL 1 11/11/19 25 Active Insulin Degludec 100 UNIT/ML Subcutaneous Solution Pen-injector (Tresiba FlexTouch)Indicatio ns:Type 2 diabetes mellitus with hemoglobin A1c goal of less than 7.0% (HCC) Inject 10 Units under the skin in the morning. 3 mL 2 11/27/19 25 Active Potassium Chloride Maryam ER 10 MEQ Oral Tablet Extended ReleaseIndications: Low serum potassium Take 2 Tablets by mouth in the morning and 2 Tablets before bedtime. 12/10/19 25 Active Potassium Chloride Maryam ER 10 MEQ Oral Tablet Extended ReleaseIndications: Low serum potassium Take 2 Tablets by mouth in the morning and 2 Tablets at noon and 2 Tablets before bedtime. 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 07/05/2023 Hepatic encephalopathy 03/28/2022 Overview (12/06/2022): admitted [facility], ammonia 110 Aortic stenosis, [...] as of this encounter (statuses as of 12/10/2024) Resolved Problems Problem Noted Date Diagnosed Date [...] as of this encounter (statuses as of 12/10/2024) Immunizations Name Administration Dates Next Due COVID-19 [...] file Not on file 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 Not on file Not on file documented as of this encounter Last Filed Vital Signs Vital Sign Reading Time Taken Comments Blood Pressure 80/52 12/10/2024 10:22 AM EST Pulse 75 12/10/2024 10:22 AM EST Temperature 35.6 C (96 F) 12/10/2024 10: 22 AM EST Respiratory Rate - - Oxygen Saturation 95% 12/10/2024 10: 22 AM EST Inhaled Oxygen Concentration - - Weight 103.8 kg (228 lb 12.8 oz) 2024 10:22 AM EST Height - - Body Mass Index 32.83 12/05/2024 10:33 PM EST documented in this encounter Functional Status * Are you [...] Entry Date Author No 12/05/2024 10:37 PM EST Lucía Graff RN documented in this encounter Progress Notes * Krystian Palomo MD - 12/10/2024 10:28 AM EST Images from the original note were not included. Subjective: HPI: Lloyd Spencer is a 59 year old male with hx of DMII, HLD, HTN, thrombocytopenia, Moderate , Livercirrhosis with ascites , BPH, Hepatocellular carcinoma s/p TACE, hypotension, Abd sinus tract seen for Pt was admitted from 12/05-12/07 Pt was transferred from [facility] due to continuous drainage of ascitic fluids from the abd sinus tract - pt had PleurX catheter placement - catheter removed and suture placed Today: - overall pt is doing well - pt denied any drainage from the sinus tract - sched to undergo paracentesis - had 2 Bms yesterday --- taking lactulose once a day - taking torsemide 20mg daily, KCL 20 meq BID - taking midodrine 7.5mg TID but did not take it today morning - taking tresiba 10 units daily ---- fasting glucose has been ranging between 100-150 - denied any fever, or confusion Patient Active Problem List Diagnosis HTN, goal below 140/90 Family history of colon cancer Type 2 diabetes mellitus with hemoglobin A1c goal of less than 7.0% (HCC) Diverticulosis of colon Hyperlipidemia with target LDL less than 100 Chronic idiopathic gout involving toe without tophus BMI 36.0-36.9,adult Thrombocytopenia (HCC) Aortic stenosis, moderate Hepatic encephalopathy (HCC) 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 Vitamin C 1000 MG Oral Tablet daily . Atorvastatin Calcium 20 MG Oral Tablet (Lipitor) Take 1 Tablet by mouth in the morning. 90 Tablet 1 Probiotic & Acidophilus Ex St Oral Capsule Take 1 Capsule by mouth in the morning and 1 Capsulebefore bedtime. rifAXIMin 550 MG Oral Tablet (Xifaxan) TAKE ONE TABLET BY MOUTH EVERY MORNING AND ONE TABLET AT BEDTIME 60 Tablet 12 Sodium Chloride 1 GM Oral Tablet Take 1 Tablet by mouth in the morning and 1 Tablet before bedtime. Docusate Sodium 100 MG Oral Capsule (Colace) Take 1 Capsule by mouth in the morning and 1 Capsule before bedtime. Handpressions In Vitro Strip (Glucose Blood) Use to check blood sugars up to three times daily DxE11.9 300 Strip 3 MagDelay 64 MG Oral Tablet Delayed Release Take 1 Tablet by mouth in the morning. Midodrine HCl 2.5 MG Oral Tablet (Proamatine) Take 3 Tablets by mouth in the morning and 3 Tablets at noon and 3 Tablets in the evening. Torsemide 20 MG Oral Tablet (Demadex) Take 1 Tablet by mouth in the morning. Dexcom G7 Sensor Use as directed every 10 days. DxE11.9 3 Each 3 Omeprazole 20 MG Oral Capsule Delayed Release [...] BY MOUTH EVERY DAY 90 Capsule 1 Mupirocin 2 % External Ointment (Bactroban) Apply topically to affected area 3 times a day. At hospital discharge 22 g 1 Lactulose 10 GM/15ML Oral Solution (Constulose) Take 45 mL by mouth in the morning and 45 mL at noon and 45 mL before bedtime. 4050 mL 1 Insulin Degludec 100 UNIT/ML Subcutaneous Solution Pen-injector (Tresiba FlexTouch) Inject 10 Unitsunder the skin in the morning. 3 mL 2 Potassium Chloride Maryam ER 10 MEQ Oral Tablet Extended Release Take 2 Tablets by mouth in the morning and 2 Tablets before bedtime. 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 [facility] Past Surgical History: Procedure Laterality Date ABD/PELVIS CT W/O IV AND W/O PO CONTRAST 03/30/2010 diverticulitis, [facility] CHG CT HEAD/BRAIN W/O CONTRAST MATERIAL 02/27/2024 no acute changes to explain encephalopathy COLONOSCOPY, DIAGNOSTIC (RECTUM) 06/07/2019 normal, repeat 5 yrs/[facility] COLONOSCOPY, DIAGNOSTIC (RECTUM) N/A 01/11/2024 hemorrhoids/recall 5 years/Colonoscopy/[place] COLORECTAL CANCER SCREEN; COLON 05/22/2010 wnl , [...] performed by Gerardo Workman MD at ENDOSCOPY [facility] EGD, FLEXIBLE, DIAGNOSTIC 07/04/2023 Portal hypertensive gastropathy., esophagus and duodenuum normal (EGD), FLEXIBLE, TRANSORAL, DIAGNOSTIC performed by Juli Krause DO at ENDOSCOPY [facility] EGD, FLEXIBLE, DIAGNOSTIC N/A 09/05/2024 moderate portal hypertensive gastropathy/recall 2 years/ESOPHAGOGASTRODUODENOSCOPY (EGD), FLEXIBLE,TRANSORAL, DIAGNOSTIC performed by Jayla Armstrong MD at [facility] FOBT (EIA) 08/27/2023 negative IR BIOPSY 10/04/2024 IR CANCER CHEMO EMBOLIZATION (TACE) 08/02/2023 IR [...] Hyperlipidemia Brother Bill No Known Problems Brother Mathew Social History Tobacco Use Smoking status: Never Smokeless tobacco: Former Types: Chew Quit date: 05/18/2005 Substance Use Topics Alcohol use: No Vaping/E-Cigarette Use Vaping/E-Cigarette Use Never User Vaping/E-Cigarette Substances Vaping/E-Cigarette Devices ROS: -Per HPI OBJECTIVE: BP 80/52 | Pulse 75 | Temp 96 F (35.6 C) | Wt 228 lb 12.8 oz (103.8 kg) | SpO2 95% | BMI 32.83 kg/m | BSA 2.26 m PHYSICAL EXAM: Vitals are reviewed General:. NAD, well developed HEENT:. Normal Conjunctiva, EOMI Cardiac:.systolic murmur, Normal S1, S2 Lungs:. CTA, no wheezing or crackles Abd:.no drainage, changed the bandage, soft, NT, normal BS MSK:. Normal gait Psych:. 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 | Check-out note: With me I spent a total of 40-54 minutes (exact time 44 mins) on the date of service in preparation, delivery, and documentation of the care provided to Lloyd Spencer excluding any time spent in the performance of separately billed services or time spent by another provider/QHP. Krystian Palomo MD Family medicine[address] [address] documented in this encounter Nursing Notes * Daniella Paez CMA - 12/10/2024 10:17 AM EST He is here for a follow up from hospital discharge. He was supposed to have a procedure but they couldn't do it so they put some sutures around his ostomy. He wants to know if we can change the dressing while he is here today. documented in this encounter Plan of Treatment Upcoming Encounters Date Type Department Care Team (Late st Contact Info) Description 12/26/2024 9:00 AM EST Office Visit Pharmacy, [address] [place] [address] [place] [address] 03/20/2025 10:30 AM EDT Office Visit Cardiology, [facility] [address] [place] [address] Chino Carrillo PA-C [address] [place] [address] 03/31/2025 4:00 PM EDT Office Visit Nephrology, [facility] [address] [facility] [place] [address] Fernando Reina MD [address] [facility] [place] [address] 04/18/2025 10:30 AM EDT Office Visit Gastroenterology, [facility] [address] [place] [address] Ren Pineda CRNP [address] [place] [address] 06/02/2025 10:00 AM EDT Office Visit Family Medicine [address] [place] [phone] Krystian Palomo MD [address] [place] [address] [place] [address] 09/11/2025 2:00 PM EST Imaging Radiology [address] [place] [address] Pending Results Name Type Priority Associated Diagnoses Date /Time CBC WITH WBC DIFFERENTIAL Lab Routine Type 2 diabetes mellitus with hemoglobin A1c goal of less than 7.0% (HCC) 12/10/2024 11:00 AM EST CBC Lab Routine Type 2 diabetes mellitus with hemoglobin A1c goal of less than 7.0% (HCC) 12/10/2024 11:00 AM EST DIFFERENTIAL, AUTOMATED Lab Routine Type 2 diabetes mellitus with hemoglobin A1c goal of less than 7.0% ([facility]) 12/10/2024 11:00 AM EST Scheduled Procedures Name Priority Associated Diagnoses [...] history exists Depression Screening 09/09/2025 09/09/2024 GFR 12/06/2025 12/06/2024, 10/31, 11/06/2024, Additional history exists Lipid Panel 09/18/2028 09/18/2023, [...] this encounter Medical Devices Implanted Type Area Recruitment Advertising Manager Device Identifier Shelf Expiration Date Model / Serial / Lot Lipiodol Injection - [id number] Implanted:Qty: 1 on 08/02/2023 at [facility] 04/28/2026 02451-03 [id number] Syr Pf 2ml Embospheres 100-300 - [id number] Implanted:Qty: 1 [facility] [employer] [id number] 02/26/2026 [id number] / / [id number] Syr Pf 2ml Embospheres 100-300 - [id number] Implanted:Qty: 1 [facility] [employer] [id number] 12/27/2026 S220GH / / [id number] Lipiodol Injection - [id number] Implanted:Qty: [facility] [id number] / documented as of this encounter Procedures Procedure Name Priority Date/Time Associated Diagnosis Comments GLUCOSE METER, POINT OF CARE Routine 12/10/2024 10:45 AM EST Type 2 diabetes mellitus with hemoglobin A1c goal of less than 7.0% (HCC) documented in this encounter Results * (ABNORMAL) GLUCOSE METER, POINT OF CARE (12/10/2024 10:45 AM EST) Glucose - POCT 190(H) 70 - 120 mg/dL 12/10/2024 10:48 AM EST [facility] 55-00 Blood 12/10/2024 10:4 5 AM EST 12/10/2024 10:48 AM EST Krystian Palomo MD LAB POINT OF CARE TEST DOCKED DEVICE UNSOLICITED RESULTS Final Result [facility] [address] [place] [address] documented in this encounter Visit Diagnoses Diagnosis Type 2 diabetes mellitus with hemoglobin A1c goal of less than 7.0% (HCC)- Primary Low serum potassium Hospital discharge follow-up Other follow-up examination Chronic hyponatremia Hyposmolality and/or hyponatremia HTN, goal below 140/90 Unspecified essential hypertension 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 Question Answer Comments Discussion of Advance Directives occurred with: Patient Care Teams Radiology Interventional Physician Relationship Specialty Start Date End Date Krystian Palomo MD [address] [place] [address] [place] [address] PCP - General Family Medicine 12/22/23 documented as of this encounter"
--- OUTSIDE RECORDS SUMMARY | 2024-12-28 20:39 | External Medical Summary | Summary of Care ---
Author Name Unknown Organization [facility] Address [address] [place] [address] Phone [phone] Care Team Providers Care Dry House Wheeler Name Role Phone Krystian Palomo MD Primary Care Provide r Reason for Visit * Reason Onset Date Comments Advice 12/13/2024 paracentesis Appointment 12/13/202412/23 Edwin add on at 10am Encounter Details Date Type Department Care Team (Late st Contact Info) Description 12/13/2024 Telephone Gastroenterology, [facility] [address] [facility] [place] [phone] Services, Scheduling [address] [place] [address] Advice (paracentesis); Appointment (12/23 T... 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 * Telephone Encounter - Migdalia Ramos OSA [...] 1:29 PM EST He gets those at [facility], so please fax order there. * Addendum Note - Maira Louis CRNP - 12/16/2024 1:29 PM ESTAddended by: MAIRA LOUIS on: 12/16/2024 01:29 PM Modules accepted: Orders * Addendum Note - Desrie Melo RN - 12/16/2024 12:08 PM ESTAddended [...] solution, but would need to go to [place] for this OP procedure. ? Has he been contacted by radiation to start tx on the liver cancer? A appointment scheduler will reach out to him to [...] would like to have this done at [facility]. Pt would like acall back. documented in this encounter Plan of Treatment Upcoming Encounters Date Type Department Care Team (Late st Contact Info) Description 12/26/2024 9:00 AM EST Office Visit Pharmacy, [address] [place] [address] [place] [address] 01/13/2025 8:40 AM EDT Office Visit Family [address] [place] [phone] Krystian Palomo MD [address] [place] [address] [place] [address] 03/11/2025 2:40 PM EDT Office Visit Family [address] [place] [phone] Krystian Palomo MD [address] [place] [address] [place] [address] 03/20/2025 10:30 AM EDT Office Visit Cardiology, [facility] [address] [place] [address] Chino Carrillo PA-C [address] [place] [address] 03/31/2025 4:00 PM EDT Office Visit Nephrology, [facility] [address] [place] [address] Fernando Reina MD [address] [place] [address] 04/18/2025 10:30 AM EDT Office Visit Gastroenterology, [facility] [address] [place] [address] Maira Louis CRNP [address] [place] [address] 06/02/2025 10:00 AM EDT Office Visit Family Medicine [address] [place] [phone] Krystian Palomo MD [address] [place] [address] [place] [address] 09/11/2025 2:00 PM EST Imaging Radiology [address] [place] [address] Scheduled Orders Name Type Priority Associated Diagnoses [...] this encounter Medical Devices Implanted Type Area Combination Technician Device Identifier Shelf Expiration Date Model / Serial / Lot Lipiodol Injection - [id number] Implanted:Qty: 1 on 08/02/2023 at [facility] [employer] 04/28/2026 [id number] Syr Pf 2ml Embospheres 100-300 - [id number] Implanted:Qty: 1 on 08/02/2023 at [facility] [employer] [id number] 02/26/2026 S220GH / / [id number] Syr Pf 2ml Embospheres 100-300 - [id number] Implanted:Qty: 1 on 04/11/2024 at [facility] [employer] [id number] 12/27/2026 S220GH / / [id number] Lipiodol Injection - [id number] Implanted:Qty: 1 on 04/11/2024 at [facility] [employer] [id number] documented as of this encounter Visit Diagnoses [...] Advance Directives occurred with: Patient Care Teams Dry House Wheeler Relationship Specialty Start Date End Date Krystian Palomo MD [address] [place] [address] [place] [address] PCP - General Family Medicine 12/22/23 documented as of this encounter
--- OUTSIDE RECORDS SUMMARY | 2024-12-28 20:39 | External Medical Summary | Summary of Care ---
Author Name Unknown Organization [facility] Address [address] [place] [address] Phone [phone] Care Team Providers Care Company Doctor Name Role Phone Krystian Palomo MD Primary Care Provide r Reason for Visit * Reason Onset Date Comments Advice 12/13/2024 paracentesis Appointment 12/13/202412/23 Edwin add on at 10am Encounter Details Date Type Department Care Team (Late st Contact Info) Description 12/13/2024 Telephone Gastroenterology, [facility] 132 [facility] [place] [phone] Services, Scheduling [address] [place] [address] Advice (paracentesis); Appointment (12/23 T... 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 * Telephone Encounter - Migdalia Ramos OSA [...] long ter solution.TIPS may be a better snf solution, but would need to go to [place] for this OP procedure. ? Has he been contacted by radiation to start tx on the liver cancer? A cook tortilla will reach out to him to arrange [...] would like to have this done at [facility]. Pt would like acall back. documented in this encounter Plan of Treatment Upcoming Encounters Date Type Department Care Team (Late st Contact Info) Description 12/26/2024 9:00 AM EST Office Visit Pharmacy, [address] [place] [address] [place] [address] 01/13/2025 8:40 AM EDT Office Visit Family [address] [place] [phone] Krystian Palomo MD [address] [place] [address] [place] [address] 03/11/2025 2:40 PM EDT Office Visit Family [address] [place] [phone] Krystian Palomo MD [address] [place] [address] [place] [address] 03/20/2025 10:30 AM EDT Office Visit Cardiology, [facility] [address] [place] [address] Chino Carrillo PA-C [address] [place] [address] 03/31/2025 4:00 PM EDT Office Visit Nephrology, [facility] [address] [place] [address] Fernando Reina MD [address] [place] [address] 04/18/2025 10:30 AM EDT Office Visit Gastroenterology, [facility] [address] [place] [address] Maira Louis CRNP [address] [place] [address] 06/02/2025 10:00 AM EDT Office Visit Family Medicine [address] [place] [phone] Krystian Palomo MD [address] [place] [address] [place] [address] 09/11/2025 2:00 PM EST Imaging Radiology [address] [place] [address] Scheduled Orders Name Type Priority Associated Diagnoses [...] this encounter Medical Devices Implanted Type Area Gasoline Catalyst Operator Device Identifier Shelf Expiration Date Model / Serial / Lot Lipiodol Injection - [id number] Implanted:Qty: 1 on 08/02/[address] [facility] [employer] 04/28/2026 [id number] Syr Pf 2ml Embospheres 100-300 - [id number] Implanted:Qty: 1 on 08/02/[address] [facility] [employer] [id number] 02/26/2026 S220GH / / [id number] Syr Pf 2ml Embospheres 100-300 - [id number] Implanted:Qty: 1 on 04/11/[address] [facility] [employer] [id number] 12/27/2026 S220GH / / [id number] Lipiodol Injection - [id number] Implanted:Qty: 1 on 04/11/[address] [facility] [employer] [id number] documented as of this encounter Visit Diagnoses [...] Advance Directives occurred with: Patient Care Teams Company Doctor Relationship Specialty Start Date End Date Krystian Palomo MD [address] [place] [address] [place] [address] PCP - General Family Medicine 12/22/23 documented as of this encounter
--- OUTSIDE RECORDS SUMMARY | 2024-12-28 20:39 | External Medical Summary ---
Author Name Unknown Address Unknown Organization : Laboratory Report Ordering Provider Test Date Status AMIRA DAVID 12/10/2024 10:45:31 Kalie bety Observation Date Value Abnormality Reference (Units ) Status Glucose Point of Care 12/10/2024 10:45:31 190 Above high normal 70-120 (mg/dL) Final Performing Location
--- OUTSIDE RECORDS SUMMARY | 2024-12-28 20:39 | External Medical Summary ---
Author Name Unknown Address Unknown Organization [id number]:[facility] [place] [address] [place] [address] Laboratory Report Ordering Provider Test Date Status HERIBERTO RAO 12/10/2024 11:00:16 Final Warfarin Therapy
INR: 2 .0-3.0 conventional anticoagulation
INR: 2.5- 3.5 high intensity anticoagulation Observation Date Value Abnormality Reference (Units ) Status PT 12/10/2024 11:00:16 20.1 Above high normal 11 .6-15.2 (seconds) Final INR 12/10/2024 11:00:16 1.7 Above high normal 0. 8-1.2 Final Performing Location [facility] [place] [address] [place] [address]
--- OUTSIDE RECORDS SUMMARY | 2024-12-28 20:39 | External Medical Summary | Summary of Care ---
Author Name Unknown Organization [facility] Address [address] [facility] [place] [address] Phone [phone] Care Team Providers Care Harvest Field Ticketer Name Role Phone Krystian Palomo MD Primary Care Provide r Encounter Details Date Type Department Care Team (Late st Contact Info) Description 12/12/2024 Orders Only Cardiology, [facility] [address] [place] [address] Edwin Hopper, DO [address] [place] [address] Allergies Active Allergy Reactions Criticality Noted Date Comments Aspirin 01/28/2022 Other reaction(s): bloody nose Salicylates 08/08/2001 nose bleeds documented as of this encounter (statuses as of 12/12/2024) Medications Multivitamin Adult Oral Tablet daily . 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 Hepatic encephalopathy 03/28/2022 Overview (12/06/2022): admitted [facility], ammonia 110 Aortic stenosis, moderate 01/21/2022 Thrombocytopenia [...] as of this encounter (statuses as of 12/12/2024) Resolved Problems Problem Noted Date Diagnosed Date [...] as of this encounter (statuses as of 12/12/2024) Immunizations Name Administration Dates Next Due COVID-19 [...] file Not on file 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 Not on file Not [...] 12/26/2024 9:00 AM EST Office Visit Pharmacy, [address] [place] [address] [place] [address] 03/20/2025 10:30 AM EDT Office Visit Cardiology, [facility] [address] [place] [address] Chino Carrillo PA-C [address] [place] [address] 03/31/2025 4:00 PM EDT Office Visit Nephrology, Girish Marie[place] [address] [place] [address] Fernando Reina MD [address] [place] [address] 04/18/2025 10:30 AM EDT Office Visit Gastroenterology, [facility] [address] [place] [address] Ren Pineda CRNP [address] [place] [address] 06/02/2025 10:00 AM EDT Office Visit Family Medicine [address] [place] [phone] Krystian Palomo MD [address] [place] [address] [place] [address] 09/11/2025 2:00 PM EST Imaging Radiology [address] [place] [address] Scheduled Procedures Name Priority Associated Diagnoses Date/Ti [...] this encounter Medical Devices Implanted Type Area Pricing Lead Device Identifier Shelf Expiration Date Model / Serial / Lot Lipiodol Injection - [id number] Implanted:Qty: 1 on 08/02/2023 at [facility] [employer] [facility] 04/28/2026 [id number] Syr Pf 2ml Embospheres 100-300 - [id number] Implanted:Qty: 1 on 08/02/2023 at [facility] [employer] [facility] [employer] [id number] 02/26/2026 S220GH / / [id number] Syr Pf 2ml Embospheres 100-300 - [id number] Implanted:Qty: 1 on 04/11/2024 at [facility] [employer] [id number] 12/27/2026 S220GH / / [id number] Lipiodol Injection - [id number] Implanted:Qty: 1 on 04/11/2024 at [facility] [employer] [facility] [address] documented as of this encounter Advance Directives * Full Code (Latest Code Status on File) Date Activated Date Inactivated Comments 12/05/2024 11:24 PM 12/07/2024 5:18 PM This order re flects the patients wishes and were consensually agreed upon. Question Answer Comments Discussion of Advance Directives occurred with: Patient Care Teams Harvest Field Ticketer Relationship Specialty Start Date End Date Krystian Palomo MD [address] [place] [address] [place] [address] PCP - General Family Medicine 12/22/23 documented as of this encounter
--- OUTSIDE RECORDS SUMMARY | 2024-12-28 20:39 | External Medical Summary | Summary of Care ---
Author Name Unknown Organization [facility] Address [address] [facility] 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 Not on file Not [...] Entry Date Author No 12/05/2024 10:37 PM uLcía Taylor RN documented in this encounter Plan of Treatment Upcoming Encounters Date Type Department Care Team (Late st Contact Info) Description 12/26/2024 9:00 AM EST Office Visit Pharmacy, [address] [place] [address] [place] [address] 01/13/2025 8:40 AM EDT Office Visit [address] [place] [address] Krystian Palomo MD [address] [place] [address] [place] [address] 03/11/2025 2:40 PM EDT Office Visit [address] [place] [phone] Krystian Palomo MD [address] [place] [address] [place] [address] 03/20/2025 10:30 AM EDT Office Visit Cardiology, [facility] [address] [place] [address] Chino Carrillo PA-C [address] [place] [address] 03/31/2025 4:00 PM EDT Office Visit Nephrology, [facility] [address] [place] [address] Fernando Reina MD [address] [place] [address] 04/18/2025 10:30 AM EDT Office Visit Gastroenterology, [facility] [address] [place] [address] Ren Pineda CRNP 132 [facility] [place] [address] 06/02/2025 10:00 AM EDT Office Visit Family Medicine [address] [place] [phone] Krystian Palomo MD [address] [place] [address] [place] [address] 09/11/2025 2:00 PM EST Imaging Radiology [address] [place] [address] Scheduled Procedures Name Priority Associated Diagnoses Date/Ti [...] this encounter Medical Devices Implanted Type Area Enrollment Counselor Device Identifier Shelf Expiration Date Model / Serial / Lot Lipiodol Injection - [id number] Implanted:Qty: 1 on 08/02/2023 at [facility] [employer] 04/28/2026 55976-37 \[id number] Syr Pf 2ml Embospheres 100-300 - [id number] Implanted:Qty: 1 on 08/02/2023 at [facility] [employer] [id number] 02/26/2026 S220GH / / [id number] Syr Pf 2ml Embospheres 100-300 - [id number] Implanted:Qty: 1 on 04/11/2024 at [facility] [employer] [id number] 12/27/2026 S220GH / / [id number] Lipiodol Injection - [id number] Implanted:Qty: 1 on 04/11/2024 at [facility] [employer] [address] documented as of this encounter Procedures Procedure Name Priority Date/Time Associated Diagnosis Comments OUTSIDE LAB RESULTS 12/11/2024 documented in this encounter Results * OUTSIDE LAB RESULTS (12/11/2024) 12/11/2024 us [facility] Final Resu lt documented in this encounter Advance Directives * Full Code (Latest Code Status on File) Date Activated Date Inactivated Comments 12/05/2024 11:24 PM 12/07/2024 5:18 PM This order re flects the patients wishes and were consensually agreed upon. Question Answer Comments Discussion of Advance Directives occurred with: Patient Care Teams Chucker Relationship Specialty Start Date End Date Krystian Palomo MD [address] [place] [address] [place] [phone] PCP - General Family Medicine 12/22/23 documented as of this encounter
--- OUTSIDE RECORDS SUMMARY | 2024-12-28 20:39 | External Medical Summary | Summary of Care ---
Author Name Unknown Organization [facility] Address [address] [place] [address] Phone [phone] Care Team Providers Care Automated Cutting Machine Operator Name Role Phone Krystian Palomo MD Primary Care Provide r Encounter Details Date Type Department Care Team (Late st Contact Info) Description 12/12/2024 Orders Only Gastroenterology, [facility] [address] [place] [address] Ren Pineda CRNP [address] [place] [address] Allergies Active Allergy Reactions Criticality Noted Date [...] Hepatic encephalopathy 03/28/2022 Overview (12/06/2022): admitted [facility], ammonia 110 Aortic stenosis, moderate 01/21/2022 [...] file Not on file 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 Not on file [...] 12/26/2024 9:00 AM EST Office Visit Pharmacy, [address] [place] [address] [place] [address] 03/20/2025 10:30 AM EDT Office Visit Cardiology, [facility] [address] [place] [place] [address] Chino Carrillo PA-C [address] [place] [place] [address] 03/31/2025 4:00 PM EDT Office Visit Nephrology, Girish Mariee [address] [place] [address] [address] [address] Fernando Reina MD [address] [place] [address] [place] [address] 04/18/2025 10:30 AM EDT Office Visit Gastroenterology, [facility] [address] [place] [address] Ren Pineda CRNP [address] [place] [address] 06/02/2025 10:00 AM EDT Office Visit Family Medicine [address] [place] [phone] Krystian Palomo MD [address] [place] [address] [place] [address] 09/11/2025 2:00 PM EST Imaging Radiology [address] [place] [address] Scheduled Procedures Name Priority Associated Diagnoses Date/Ti [...] this encounter Medical Devices Implanted Type Area Joint Setter Device Identifier Shelf Expiration Date Model / Serial / Lot Lipiodol Injection - [id number] Implanted:Qty: 1 on 08/02/2023 at [facility] [employer] [facility] 04/28/2026 18934-39 [id number] Syr Pf 2ml Embospheres 100-300 - [id number] Implanted:Qty: 1 on 08/02/2023 at [facility] [employer] [id number] 02/26/2026 S220GH / / [id number] Syr Pf 2ml Embospheres 100-300 - [id number] Implanted:Qty: 1 on 04/11/2024 at [facility] [employer] [id number] 12/27/2026 S220GH / / [id number] Lipiodol Injection - [id number] Implanted:Qty: 1 on [facility]/20[facility] [place] [address] documented as of this encounter Procedures Procedure Name Priority Date/Time Associated Diagnosis Comments CHEMISTRY-OUTSIDE Routine 12/11/2024 documented in this encounter Results * (ABNORMAL) CHEMISTRY-OUTSIDE (12/11/2024) Not all results display below - see scan for full detail OUTSIDE LAB (SEE SCANNED REPORT) Comment:SCAN INCLUDES: BMP, PT/INR, PTT, GRAM STAIN, PERIT CC/DIFF, CBCD CREATININE 0.93 0.6 - 1.4 MG/DL OUTSIDE LAB (SEE SCANNED REPORT) EGFR 94 ML/MIN OUTSIDE LA B (SEE SCANNED REPORT) POTASSIUM 4.1 3.5 - 5.1 MMOL/L OUTSIDE LAB (SEE SCANNED REPORT) GLUCOSE 231(A) 70 - 99 MG/DL OUTSIDE LAB (SEE [...] LAB OUTSIDE LAB (SEE SCANNED REPORT) HEMOGLOBIN, [id number] LAB OUTSIDE LAB (SEE SCANNED REPORT) PHOSPHORUS-OUTSID E LAB OUTSIDE LAB (SEE SCANNED REPORT) PTH-OUTSIDE LAB OUTS LESLIE LAB (SEE SCANNED REPORT) MICROALBUMIN RATIO-OUTSIDE LAB OUTSIDE LA B (SEE SCANNED REPORT) PROTEIN, UA-OUTSIDE LAB OUTSIDE LAB (SEE SCANNED REPORT) HGB 7.6(A) 14.0 - 18.0 G/DL OUTSIDE LAB (SEE SCANNED REPORT) 12/11/2024 us [facility] Final Resu lt OUTSIDE LAB (SEE SCANNED REPORT) documented in this encounter Advance Directives * Full Code (Latest Code Status on File) Date Activated Date Inactivated Comments 12/05/2024 11:24 PM 12/07/2024 5:18 PM This order re flects the patients wishes and were consensually agreed upon. Question Answer Comments Discussion of Advance Directives occurred with: Patient Care Teams Automated Cutting Machine Operator Relationship Specialty Start Date End Date Krystian Palomo MD [address] [place] [address] [place] [address] PCP - General Family Medicine 12/22/23 documented as of this encounter
--- OUTSIDE RECORDS SUMMARY | 2024-12-28 20:39 | External Medical Summary | Summary of Care ---
Author Name Unknown Organization [facility] Address [address] [place] [address] Phone [phone] Care Team Providers Care Psychiatry Teacher Name Role Phone Krystian Palomo MD Primary Care Provide r Reason for Visit * Reason Onset Date Comments Advice 12/13/2024 paracentesis Appointment 12/13/202412/23 Edwin add on at 10am Encounter Details Date Type Department Care Team (Late st Contact Info) Description 12/13/2024 Telephone Gastroenterology, [facility] [place] [phone] Services, Scheduling [address] [place] [address] Advice (paracentesis); Appointment (12/23 T... 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 * Telephone Encounter - Migdalia Ramos OSA [...] EST He gets those at [facility], so please fax order there. * [...] long ter solution.TIPS may be a better intermediate solution, but would need to go to [place] for this OP procedure. ? Has he been contacted by radiation to start tx on the liver cancer? A museum service scheduler will reach out to him to [...] 12/26/2024 9:00 AM EST Office Visit Pharmacy, [address] [place] [address] [place] [address] 01/13/2025 8:40 AM EDT Office Visit Family [address] [place] [phone] Krystian Palomo MD [address] [place] [address] [place] [address] 03/11/2025 2:40 PM EDT Office Visit Family [address] [place] [address] Krystian Palomo MD [address] [place] [address] [place] [address] 03/20/2025 10:30 AM EDT Office Visit Cardiology, [facility] [address] [place] [address] Chino Carrillo PA-C [address] [place] [address] 03/31/2025 4:00 PM EDT Office Visit Nephrology, [facility] Jaylene [address] [place] [address] Fernando Reina MD [address] [place] [address] 04/18/2025 10:30 AM EDT Office Visit Gastroenterology, [facility] [address] [place] [address] Maira Louis CRNP [address] [place] [address] 06/02/2025 10:00 AM EDT Office Visit Family Medicine [address] [place] [phone] Krystian Palomo MD [address] [place] [address] [place] [address] 09/11/2025 2:00 PM EST Imaging Radiology [address] [place] [address] Scheduled Orders Name Type Priority Associated Diagnoses [...] this encounter Medical Devices Implanted Type Area Space And Missile Operations Device Identifier Shelf Expiration Date Model / Serial / Lot Lipiodol Injection - [id number] Implanted:Qty: 1 on 08/02/2023 at [facility] [employer] 04/28/2026 15384-95 \[id number] Syr Pf 2ml Embospheres 100-300 - [id number] Implanted:Qty: 1 on 08/02/2023 at [facility] [employer] [id number] 02/26/2026 S220GH / / [id number] Syr Pf 2ml Embospheres 100-300 - [id number] Implanted:Qty: 1 on 04/11/2024 at [facility] [employer] [id number] 12/27/2026 S220GH / / [id number] Lipiodol Injection - [id number] Implanted:Qty: 1 on 04/11/2024 at [facility] [employer] [address] documented as of this encounter Visit Diagnoses [...] Advance Directives occurred with: Patient Care Teams Psychiatry Teacher Relationship Specialty Start Date End Date Krystian Palomo MD [address] [place] [address] [place] [address] PCP - General Family Medicine 12/22/23 documented as of this encounter
--- OUTSIDE RECORDS SUMMARY | 2024-12-28 20:39 | External Medical Summary ---
Author Name Unknown Address Unknown Organization K01:[facility] [place] [address] [facility] [place] [address] Laboratory Report Ordering Provider Test Date Status AMIRA DAVID 12/10/2024 11:00:16 Kalie l Observation Date Value Abnormality Reference (Units ) Status SYNC LEUKOCYTES IN BLOOD BY AUTOMATED COUNT 12/10/2024 11:00:16 6.48 4.00-10.80 (K/uL) Final Segs 12/10/2024 11:00:16 69.3 40.0-75.0 (%) Final Lymphs % 12/10/2024 11:00:16 8.5 Below low normal 18.0-42.0 (%) Final Monos 12/10/2024 11:00:16 14.8 Above high normal 1.0-11.0 (%) Final Eosinophils 12/10/2024 11:00:16 5.1 0.0-6.0 (%) Final Basos 12/10/2024 11:00:16 2.0 0.0-2.0 (%) Final Immature Granulocyte, Percent 12/10/2024 11:00:16 0.3 0.0-2.0 (%) Final Absolute Segs 12/10/2024 11:00:16 4.49 1.80-7.70 (K/uL) Final Lymphs, absolute 12/10/2024 11:00:16 0.55 Below low normal 1.00-4.80 (K/ul) Final Monos, Abs 12/10/2024 11:00:16 0.96 0.00-1.10 (K/uL) Final Eos, Abs 12/10/2024 11:00:16 0.33 0.00-0.70 (K/uL) Final Basos, Abs 12/10/2024 11:00:16 0.13 0.00-0.20 (K/uL) Final Immature Granulocytes, Number 12/10/2024 11:00:16 0.02 0.00-0.20 (K/uL) Final Performing Location [facility] [place] [facility] [address]. [facility] [address]
--- OUTSIDE RECORDS SUMMARY | 2024-12-28 20:39 | External Medical Summary | Summary of Care ---
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); Low serum potassium Allergies Active Allergy Reactions Criticality Noted Date [...] Hepatic encephalopathy 03/28/2022 Overview (12/06/2022): admitted [facility], ammonia [...] file Not on file 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 file [...] 12/26/2024 9:00 AM EST Office Visit Pharmacy, [address] [place] [address] [place] [address] 03/20/2025 10:30 AM EDT Office Visit Cardiology, [facility] [address] [place] [address] Chino Carrillo PA-C [address] [place] [address] 03/31/2025 4:00 PM EDT Office Visit Nephrology, [facility] [address] [place] [address] Fernando Reina MD [address] [place] [address] [place] [address] 04/18/2025 10:30 AM EDT Office Visit Gastroenterology, [facility] [address] [place] [address] Ren Pineda CRNP [address] [place] [address] 06/02/2025 10:00 AM EDT Office Visit Family Medicine [address] [place] [phone] Krystian Palomo MD [address] [place] [address] [place] [address] 09/11/2025 2:00 PM EST Imaging Radiology [address] [place] [address] Pending Results Name Type Priority Associated Diagnoses Date /Time MYCODE SUBSEQUENT ADULT Lab Routine [employer] Other*[id number] 12/10/2024 11:00 AM EST ALPHA-FETOPROTEIN TUMOR MARKER Lab Routine 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) 12/10/2024 11:00 AM EST COMPREHENSIVE METABOLIC PANEL Lab Routine 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) 12/10/2024 11:00 AM EST PT INR Lab Routine 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) 12/10/2024 11:00 AM EST MYCODE SST1 Lab Routine [employer] Other*[id number] 12/10/2024 11:00 AM EST MYCODE SST2 Lab Routine [employer] Other*[id number] 12/10/2024 11:00 AM EST Scheduled Procedures Name [...] this encounter Medical Devices Implanted Type Area Sort Line Device Identifier Shelf Expiration Date Model / Serial / Lot Lipiodol Injection - [id number] Implanted:Qty: 1 on 08/02/2023 at [facility] [employer] 04/28/2026 [address]6616-66 [id number] Syr Pf 2ml Embospheres 100-300 - [id number] Implanted:Qty: 1 on 08/02/2023 at [facility] [employer] [id number] 02/26/2026 S220GH / / [id number] Syr Pf 2ml Embospheres 100-300 - [id number] Implanted:Qty: 1 on 04/11/2024 at [facility] [employer] [id number] 12/27/2026 S220GH / / [id number] Lipiodol Injection - [id number] Implanted:Qty: 1 on 04/11/2024 at [facility] [employer] [address] documented as of this encounter Visit Diagnoses Diagnosis [employer] Other*[id number] 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 Question Answer Comments Discussion of Advance Directives occurred with: Patient Care Teams Machine Tank Operator Relationship Specialty Start Date End Date Krystian Palomo MD [address] [place] [address] [place] [phone] PCP - General Family Medicine 12/22/23 documented as of this encounter
--- OUTSIDE RECORDS SUMMARY | 2024-12-28 20:39 | External Medical Summary | Summary of Care ---
Author Name Unknown Organization [facility] Address [address] [place] [address] Phone [phone] Care Team Providers Care Inbound Call Center Agent Name Role Phone Krystian Palomo MD Primary Care Provide r Reason for Visit * Reason Onset Date Comments Advice 12/12/2024 Encounter Details Date Type Department Care Team (Late st Contact Info) Description 12/12/2024 Telephone Family Medicine [address] [phone] Krystian Palomo MD [address] [place] [address] [place] [address] Advice Allergies Active Allergy Reactions Criticality [...] morning and 1 Capsule before bedtime. 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 Ren ----- Message ----- From: Dev Kerr Automated Processing Sent: 12/10/2024 10:15 PM EST To: CONCHIS Concepcion documented in this encounter Plan of Treatment Upcoming Encounters Date Type Department Care Team (Late st Contact Info) Description 12/26/2024 9:00 AM EST Office Visit Pharmacy, [address] [place] [address] [place] [address] 03/20/2025 10:30 AM EDT Office Visit Cardiology, [facility] [address] [place] [address] Chino Carrillo PA-C [address] [place] [address] 03/31/2025 4:00 PM EDT Office Visit Nephrology, [facility] [address] [facility] [place] [address] Fernando Reina MD [address] [facility] [place] [address] 04/18/2025 10:30 AM EDT Office Visit Gastroenterology, [facility] [address] [place] [address] Ren Pineda CRNP [address] [place] [address] 06/02/2025 10:00 AM EDT Office Visit Family Medicine [address] [place] [phone] Krystian Palomo MD [address] [place] [address] [place] [address] 09/11/2025 2:00 PM EST Imaging Radiology [address] [place] [address] Scheduled Procedures Name Priority Associated Diagnoses Date/Ti [...] this encounter Medical Devices Implanted Type Area Agency Sales Development Associate Device Identifier Shelf Expiration Date Model / Serial / Lot Lipiodol Injection - [id number] Implanted:Qty: 1 on 08/02/2023 at [facility] [employer] 04/28/2026 03374-92 -2 / / [id number] Syr Pf 2ml Embospheres 100-300 - [id number] Implanted:Qty: 1 on 08/02/2023 at [facility] [employer] [id number] 02/26/2026 S220GH / / [id number] Syr Pf 2ml Embospheres 100-300 - [id number] Implanted:Qty: 1 on 04/11/2024 at [facility] [employer] [id number] 12/27/2026 S220GH / / [id number] Lipiodol Injection - [id number] Implanted:Qty: 1 on 04/11/2024 at [facility] [employer] 53510-22 2 / / documented as of this encounter Advance Directives * Full Code (Latest Code Status on File) Date Activated Date Inactivated Comments 12/05/2024 11:24 PM 12/07/2024 5:18 PM This order re flects the patients wishes and were consensually agreed upon. Question Answer Comments Discussion of Advance Directives occurred with: Patient Care Teams Inbound Call Center Agent Relationship Specialty Start Date End Date Krystian Palomo MD [address] [place] [address] [place] [address] PCP - General Family Medicine 12/22/23 documented as of this encounter
--- OUTSIDE RECORDS SUMMARY | 2024-12-28 20:39 | External Medical Summary ---
Author Name Unknown Address Unknown Organization K01:[facility] [place] [address] [place] [address] Laboratory Report Ordering Provider Test Date Status SARAH TRAVIS 12/10/2024 11:00:16 Final Observation Date Value Abnormality Reference (Units ) Status MYCODE SPECIMEN-SST 12/10/2024 11:00:16 Freezing of extracted DNA, whole blood and/or serum. Final Performing Location [facility] [place] - [address] [place] [address]
--- OUTSIDE RECORDS SUMMARY | 2024-12-28 20:40 | External Medical Summary | Summary of Care ---
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 External Comments Cirrhosis w HCC. SBRT to liver lesion segment 7 Reason for Visit * Reason Onset Date Comments Referral 12/04/2024 Referred to [facility] Radiation Oncology for SBRT HCC segment 7. Encounter Details Date Type Department Care Team (Late st Contact Info) Description 12/04/2024 Telephone Gastroenterology, [facility] [address] [place] [address] Ren Pineda CRNP [address] [place] [address] Referral (Referred to [facility] Radiation Oncol... Allergies Active Allergy Reactions Criticality Noted Date Comments Aspirin 01/28/2022 Other reaction(s): bloody nose Salicylates 08/08/2001 nose bleeds documented as of this encounter (statuses as of 12/06/2024) Medications Multivitamin Adult Oral Tablet daily . 10/12/20 21 Suspended Vitamin C 1000 MG Oral Tablet daily . 10/12/20 21 Suspended Atorvastatin Calcium 20 MG Oral Tablet (Lipitor)Indication s:Hyperlipidemia with target LDL less than 100 Take 1 Tablet by mouth in the morning. 90 Tablet 1 07/11/20 23 Suspended Probiotic & Acidophilus Ex St Oral Capsule Take 1 Capsule by mouth in the morning and 1 Capsule before bedtime. 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 06/28/20 24 Suspended Docusate Sodium 100 MG Oral Capsule (Colace) Take 1 Capsule by mouth in the morning and 1 Capsule before bedtime. Suspended OneTouch Verio In Vitro Strip (Glucose Blood) Use to check blood sugars up to three times daily DxE11.9 300 Strip 3 08/07/20 24 Suspended MagDelay 64 MG Oral Tablet Delayed Release Take 1 Tablet by mouth in the morning. 09/02/20 24 Suspended Midodrine HCl 2.5 MG Oral Tablet (Proamatine)Indicat ions:at hosp d/c 09.7.24 Take 3 Tablets by mouth in the morning and 3 Tablets at noon and 3 Tablets in the evening. 09/04/20 24 Suspended Torsemide 20 MG Oral Tablet (Demadex) Take 1 Tablet by mouth in the morning. Suspended Dexcom G7 Sensor Use as directed every 10 days. DxE11.9 3 Each 3 10/29/20 24 Suspended Omeprazole 20 MG Oral Capsule Delayed Release (PriLOSEC)Indicatio ns:GERD (gastroesophageal reflux disease) Take 1 Capsule by mouth in the morning. 1 hour before the first meal of the day. 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 In the morning.. 90 Tablet 1 11/09/19 25 Suspended Tamsulosin HCl 0.4 MG Oral Capsule (Flomax)Indications :Urinary retention TAKE ONE CAPSULE BY MOUTH EVERY DAY 90 Capsule 1 11/09/19 25 Suspended Mupirocin 2 % External Ointment (Bactroban) Apply topically to affected area 3 times a day. At hospital discharge 22 g 1 11/11/19 25 Suspended Lactulose 10 GM/15ML Oral Solution (Constulose)Indicat ions:Hepatic encephalopathy (HCC) Take 45 mL by mouth in the morning and 45 mL at noon and 45 mL before bedtime. 4050 mL 1 11/11/19 25 Suspended Potassium Chloride Maryam ER 10 MEQ Oral Tablet Extended ReleaseIndications: Low serum potassium Take 2 Tablets by mouth in the morning and 2 Tablets at noon and 2 Tablets before bedtime. 180 Tablet 1 11/21/19 25 Suspended Insulin Degludec 100 UNIT/ML Subcutaneous Solution Pen-injector (Tresiba FlexTouch)Indicatio ns:Type 2 diabetes mellitus with hemoglobin A1c goal of less than 7.0% (HCC) Inject 10 Units under the skin in the morning. 3 mL 2 11/27/19 25 Suspended documented as of this encounter (statuses as of 12/06/2024) Active Problems Problem Noted Date Diagnosed Date Ascites 12/06/2024 Cardiac murmur 12/06/2024 Chronic hyponatremia 12/06/2024 Umbilical hernia 12/06/2024 Draining cutaneous sinus tract 12/06/2024 Malnutrition of moderate degree 12/06/2024 BPH without obstruction/lower urinary tract symp toms 12/22/2023 BMI 36.0-36.9,adult 10/24/2023 Overview (10/24/2023): 266 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 07/05/2023 Hepatic encephalopathy 03/28/2022 Overview (12/06/2022): admitted [facility], ammonia [...] as of this encounter (statuses as of 12/06/2024) Resolved Problems Problem Noted Date Diagnosed Date [...] as of this encounter (statuses as of 12/06/2024) Immunizations Name Administration Dates Next Due COVID-19 [...] file Not on file 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 If unable to travel to [place], could arrange w Dr. Oleary at [facility] Radiation oncology. Called the pt, explained that he has a liver cancer, like previously treated, and that the tumor board members reviewed the films and recommend radiation to this lesion, as a bridge to transplant. Given option of [place] or [facility]. Pt not able to get transporation to [place]. He prefers [facility]. Will contact the office of Dr. Oleayr, radiation oncologist at [facility] tomorrow asking him to review, see pt and consider arranging SBRT. Pt told to call back to our office if he hasn't been contacted by Dr. Oleary's office in the next week. GI nurses, please fax this note, referral order, Nov [address] Oleary in the interventional radiology office at [facility]. documented in this encounter Plan of Treatment Upcoming Encounters Date Type Department Care Team (Late st Contact Info) Description 12/26/2024 9:00 AM EST Office Visit Pharmacy, [address] [place] [address] [place] [address] 03/20/2025 10:30 AM EDT Office Visit Cardiology, [facility] [place] [address] [place] [place] [address] Chino Carrillo PA-C [address] [place] [place] [address] 03/31/2025 4:00 PM EDT Office Visit Nephrology, [facility] [address] [facility] [place] [address] Fernando Reina MD [address] [place] [address] 04/18/2025 10:30 AM EDT Office Visit Gastroenterology, [facility] [address] [place] [address] Ren Pineda CRNP [address] [place] [address] 06/02/2025 10:00 AM EDT Office Visit Family Medicine [address] [place] [phone] Krystian Palomo MD [address] [place] [address] [place] [address] 09/11/2025 2:00 PM EST Imaging Radiology [address] [place] [address] Scheduled Procedures Name Priority Associated Diagnoses Date/Ti me TUNNELED INTRAPERITONEAL CAT H INSERT, PERC Malignant ascites 12/06/2024 11:31 AM EST ESOPHAGOGASTRODUODENOSCOPY ( EGD), FLEXIBLE, TRANSORAL, DIAGNOSTIC Recall Portal hypertensive gastropathy (HCC) COLONOSCOPY FLEXIBLE PROXIMA L DIAGNOSTIC Recall Family history of colon cancer Scheduled Referrals Name Type Priority Associated Diagnoses Orde r Schedule RADIATION/ONCOLOGY REFERRAL OP Referral Within 10 days (routine) Cancer, hepatocellular (HCC) 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) Ordered: 12/06/2024 Health Maintenance Due Date Last Done Comments [...] 04/19/2024, 03/0 05/2024, 09/18/2023, Additional history exists COVID-19 Vaccine ( season) 2024 09/09/2024, 10/18/2021, 03/08/2021, Additional history exists Depression Screening 09/09/2025 09/09/2024 [...] this encounter Medical Devices Implanted Type Area Support Services Rep Device Identifier Shelf Expiration Date Model / Serial / Lot Lipiodol Injection - [id number] Implanted:Qty: 1 on 08/02/2023 at [employer] [facility] 04/28/2026 13796-06 [id number] Syr Pf 2ml Embospheres 100-300 - [id number] Implanted:Qty: 1 on 08/02/2023 at [facility] [employer] [id number] 02/26/2026 S220GH / / [id number] Syr Pf 2ml Embospheres 100-300 - [id number] Implanted:Qty: 1 on 04/11/2024 at [facility] [employer] [id number] 12/27/2026 S220GH / / [id number] Lipiodol Injection - [id number] Implanted:Qty: 1 on 04/11/2024 at [facility] [employer] [address] documented as of this encounter Visit Diagnoses Diagnosis Cancer, hepatocellular (HCC)- Primary Malignant neoplasm of liver, primary 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 Question Answer Comments Discussion of Advance Directives occurred with: Patient Care Teams Training And Development Coordinator Relationship Specialty Start Date End Date Krystian Palomo MD [address] [place] [address] [place] [address] PCP - General Family Medicine 12/22/23 documented as of this encounter
--- OUTSIDE RECORDS SUMMARY | 2024-12-28 20:40 | External Medical Summary ---
Author Name Unknown Address Unknown Organization K1F:[facility] - [address] [facility]. [place] [address] Laboratory Report Ordering Provider Test Date Status LIANGCARMEN 12/06/2024 00:36:00 Final Observation Date Value Abnormality Reference (Units ) Status BUN 12/06/2024 00:36:00 14 6-20 (mg/dL) Final Creatinine 12/06/2024 00:36:00 1.1 0.6-1.2 (mg/dL) Final Glomerular filtration rate/1.73 sq M.predicted [Volume Rate/Area] in Serum, Plasma or Blood by Creatinine-based formula (CKD-EPI) 12/06/2024 00:36:00 79 >=60 (mL/min) Final eGFR is calculated based on the CKD-EPI 2020 equation. Sodium 12/06/2024 00:36:00 129 Below low normal 135 -146 (mmol/L) Final Potassium 12/06/2024 00:36:00 4.3 3.5-5.1 (m mol/L) Final Cl 12/06/2024 00:36:00 96 Below low normal 98- 107 (mmol/L) Final CO2 12/06/2024 00:36:00 21 Below low normal 22- 32 (mmol/L) Final Anion gap 12/06/2024 00:36:00 12 7-15 (mmol /L) Final Glucose 12/06/2024 00:36:00 175 Above high normal 70 -120 (mg/dL) Final Albumin 12/06/2024 00:36:00 2.7 Below low normal 3.8 -5.0 (g/dL) Final AST (Aspartate aminotransferase) 12/06/2024 00:36:00 59 Above high normal 10-50 (U/L) Final Alk Phos 12/06/2024 00:36:00 99 35-130 (U/ L) Final Bilirubin, Total 12/06/2024 00:36:00 4.1 Above high no rmal <=1.2 (mg/dL) Final Calcium 12/06/2024 00:36:00 8.2 Below low normal 8.4 -10.2 (mg/dL) Final Protein 12/06/2024 00:36:00 5.6 Below low normal 6.0 -8.3 (g/dL) Final ALT (Alanine aminotransferase) 12/06/2024 00:36:00 27 10-50 (U/L) Christian bundy [facility] Location LABORATORY [facility] - [address] [place], [place] [address]rachel [place]. [place] [address]
--- OUTSIDE RECORDS SUMMARY | 2024-12-28 20:40 | External Medical Summary ---
Author Name Unknown Address Unknown Organization K1F:LABORATORY [facility] - [address] [place] [address] Laboratory Report Ordering Provider Test Date Status CARMEN TAVERA 12/06/2024 00:36:00 Final Warfarin Therapy
INR: 2 .0-3.0 conventional anticoagulation
INR: 2.5- 3.5 high intensity anticoagulation Observation Date Value Abnormality Reference (Units ) Status PT 12/06/2024 00:36:00 23.2 Above high normal 11 .6-15.2 (seconds) Final INR 12/06/2024 00:36:00 2.0 Above high normal 0. 8-1.2 Final Performing Location LAB[facility] - [address] [place] [address]
--- OUTSIDE RECORDS SUMMARY | 2024-12-28 20:40 | External Medical Summary | Summary of Care ---
Author Name Unknown Organization [facility] Address [address] [place] [address] Phone [phone] Care Team Providers Care Buggy Loader Name Role Phone Krystian Palomo MD Primary Care Provide r Reason for Visit * Reason Onset Date Comments Imaging Records Request 12/05/2024 Encounter Details Date Type Department Care Team (Late st Contact Info) Description 12/05/2024 Telephone Radiology Film File [address], [place] [id number] Support, Imaging Radiology [address] [place], [place] [id number] Imaging Records Request Allergies Active Allergy Reactions Criticality Noted [...] Hepatic encephalopathy 03/28/2022 Overview (12/06/2022): admitted [facility], ammonia 110 Aortic stenosis, moderate 01/21/2022 [...] file Not on file 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 [place] Authorization to Release on file. [facility]. documented in this encounter Plan of Treatment Upcoming Encounters Date Type Department Care Team (Late st Contact Info) Description 12/26/2024 9:00 AM EST Office Visit Pharmacy, [address] [place] [address] [place] [address] 03/20/2025 10:30 AM EDT Office Visit Cardiology, [facility] [address] [place] [address] Chino Carrillo PA-C [address] [place] [address] 03/31/2025 4:00 PM EDT Office Visit Nephrology, [facility] [address] [place] [address] Fernando Reina MD [address] [place] [address] 04/18/2025 10:30 AM EDT Office Visit Gastroenterology, [facility] [address] [place] [address] Ren Pineda CRNP [address] [place] [address] 06/02/2025 10:00 AM EDT Office Visit Family Medicine [address] [place] [phone] Krystian Palomo MD [address] [place] [address] [place] [address] 09/11/2025 2:00 PM EST Imaging Radiology [address] [place] [address] Scheduled Procedures Name Priority Associated Diagnoses Date/Ti [...] this encounter Medical Devices Implanted Type Area Assistant Infant Toddler Teacher Device Identifier Shelf Expiration Date Model / Serial / Lot Lipiodol Injection - [id number] Implanted:Qty: 1 on 08/02/2023 at [facility] [employer] 04/28/2026 58615-56 -2 / / [id number] Syr Pf 2ml Embospheres 100-300 - [id number] Implanted:Qty: 1 on 08/02/2023 at [facility] [employer] [id number] 02/26/2026 S220GH / / [id number] Syr Pf 2ml Embospheres 100-300 - [id number] Implanted:Qty: 1 on 04/11/2024 at [facility] [employer] [id number] 12/27/2026 S220GH / / [id number] Lipiodol Injection - [id number] Implanted:Qty: 1 on 04/11/2024 at [facility] [employer] 56407-66 -2 / / documented as of this encounter Care Teams Buggy Loader Relationship Specialty Start Date End Date Krystian Palomo MD [address] [place] [address] [place] [address] PCP - General Family Medicine 12/22/23 documented as of this encounter
--- OUTSIDE RECORDS SUMMARY | 2024-12-28 20:40 | External Medical Summary ---
Author Name Unknown Address Unknown Organization : Laboratory Report Ordering Provider Test Date Status MINH GONZALEZ 12/06/2024 17:21:31 Final Observation Date Value Abnormality Reference (Units ) Status Glucose Point of Care 12/06/2024 17:21:31 312 Above high normal 70-120 (mg/dL) Final Performing Location
--- OUTSIDE RECORDS SUMMARY | 2024-12-28 20:40 | External Medical Summary ---
Author Name Unknown Address Unknown Organization : Laboratory Report Ordering Provider Test Date Status MINH GONZALEZ 12/06/2024 06:22:17 Final Observation Date Value Abnormality Reference (Units ) Status Glucose Point of Care 12/06/2024 06:22:17 153 Above high normal 70-120 (mg/dL) Final Performing Location
--- OUTSIDE RECORDS SUMMARY | 2024-12-28 20:40 | External Medical Summary | Summary of Care ---
Author Name Unknown Organization [facility] Address [address] [facility] [place] [address] Phone [phone] Care Team Providers Care Publishing Agent Name Role Phone Krystian Palomo MD Primary Care Provide r Reason for Referral * Ancillary Services (Within 10 days (routine)) - Pending Review Specialty Diagnoses / Procedures Referred By Contact Referred To Contact Interventional Radiology / Radiology Diagnoses Cancer, hepatocellular (HCC) 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) Ren Pineda CRNP [address] [employer] [address] [place] [address] Phone: tel:[phone] fax:[phone] Referral ID Status Reason Start Date Expiration Date Visits Requested Visits Authorized [id number] Pending Review Ancillary Services Required 12/04/2024 999 999 Question Answer Referral Priority Within 10 days (routine) Where should this appointment be scheduled? External Where Will The Procedure Be Performed? Non-[facility] Comments Please enter the reason for consult: Cirrhosis w HCC. SBRT to liver lesion segment 7 Are outside images available?: Yes - Images available in [employer] and [employer] Reason for Visit * Reason Onset Date Comments Referral 12/04/2024 Referred to [facility]cology for SBRT HCC segment 7. Encounter Details Date Type Department Care Team (Late st Contact Info) Description 12/04/2024 Telephone Gastroenterology, [facility] [address] [place] [address] Ren Pineda CRNP [address] [place] [address] Referral (Referred to [facility] Radiation Oncol... 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 If unable to travel to [place], could arrange w Dr. Oleary at [facility] Radiation oncology. Called the pt, explained that he has a liver cancer, like previously treated, and that the tumor board members reviewed the films and recommend radiation to this lesion, as a bridge to transplant. Given option of [place] or [facility]. Pt not able to get transporation to [place]. He prefers [facility]. Will contact the office of Dr. Oleary, radiation oncologist at [facility] tomorrow asking him to review, see pt and consider arranging SBRT. Pt told to call back to our office if he hasn't been contacted by Dr. Oleary's office in the next week. GI nurses, please fax this note, referral order, Nov [address] Oleary in the interventional radiology office at [facility]. documented in this encounter Plan of Treatment Upcoming Encounters Date Type Department Care Team (Late st Contact Info) Description 12/05/2024 11:20 AM EST Office Visit Family Medicine [address] [place] [phone] Krystian Palomo MD [address] [place] [address] [place] [address] 12/26/2024 9:00 AM EST Office Visit Pharmacy, [address] [place] [id number] [place] [address] 03/20/2025 10:30 AM EDT Office [facility] [place] [address] Chino Carrillo PA-C [address] [place] [address] 03/31/2025 4:00 PM EDT Office Visit Nephrology, Girish Mariee [address] [address] Fernando Reina MD [address] [place] [address] 04/18/2025 10:30 AM EDT Office Visit Gastroenterology, [facility] [address] [place] [address] Ren Pineda CRNP [address] [place] [address] 06/02/2025 10:00 AM EDT Office Visit Family Medicine [address] [place] [address] Krystian Palomo MD [address] [place] [address] [place] [address] 09/11/2025 2:00 PM EST Imaging Radiology [address] [place] [address] Scheduled Procedures Name Priority Associated Diagnoses Date/Ti [...] this encounter Medical Devices Implanted Type Area Aviation Operations Specialist Device Identifier Shelf Expiration Date Model / Serial / Lot Lipiodol Injection - [id number] Implanted:Qty: 1 on 08/02/2023 at [facility] [employer] 04/28/2026 [id number] Syr Pf 2ml Embospheres 100-300 - [id number] Implanted:Qty: 1 on 08/02/2023 at [facility] [employer] [id number] 02/26/2026 [id number] / / [id number] Syr Pf 2ml [employer]ospheres 100-300 - [id number] Implanted:Qty: 1 on 04/11/2024 at [facility] [employer] [id number] 12/27/2026 [id number] / / [id number] Lipiodol Injection - [id number] Implanted:Qty: 1 on 04/11/2024 at [facility] [place] [id number] documented as of this encounter Visit Diagnoses Diagnosis Cancer, hepatocellular (HCC)- Primary Malignant neoplasm of liver, primary 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) documented in this encounter Care Teams Publishing Agent Relationship Specialty Start Date End Date Krystian Palomo MD [address] [place] [address] [place] [id number] PCP - General Family Medicine 12/22/23 documented as of this encounter
--- OUTSIDE RECORDS SUMMARY | 2024-12-28 20:40 | External Medical Summary ---
Author Name Unknown Address Unknown Organization K1F:LABORATORY [facility] - [address] [address] Laboratory Report Ordering Provider Test Date Status CARMEN TAVERA 12/06/2024 06:53:00 Final Observation Date Value Abnormality Reference (Units ) Status Magnesium 12/06/2024 06:53:00 1.9 1.5-2.6 (m g/dL) Final Performing Location LABORATORY [facility] - [address] [address]
--- OUTSIDE RECORDS SUMMARY | 2024-12-28 20:40 | External Medical Summary ---
Author Name Unknown Address Unknown Organization K1F:LABORATORY [facility] - [address] [address] Laboratory Report Ordering Provider Test Date Status CARMEN TAVERA 12/06/2024 06:53:00 Final Observation Date Value Abnormality Reference (Units ) Status Phosphate 12/06/2024 06:53:00 2.9 2.5-4.8 (m g/dL) Final Performing Location LABORATORY [facility] - [address] [address]
--- OUTSIDE RECORDS SUMMARY | 2024-12-28 20:40 | External Medical Summary ---
Author Name Unknown Address Unknown Organization K01:[facility]ORY [facility] [place] [address] [place] [address] Laboratory Report Ordering Provider Test Date Status CARMEN TAVERA 12/06/2024 06:53:00 Final Observation Date Value Abnormality Reference (Units ) Status HbA1C 12/06/2024 06:53:00 5.2 4.0-5.6 (% ) Final The use of HbA1c to monitor glycemic status is based on normal hemoglobin and HbA composition. This test should not be used in patients with abnormal hemoglobin that affects the half life of the red blood cell or the in vivo glycation rates. Glucose, estimated average 12/06/2024 06:53:00 103 <126 (mg/dL) Final Performing Location [facility] [place] [facility] [address] [facility] [address]
--- OUTSIDE RECORDS SUMMARY | 2024-12-28 20:40 | External Medical Summary ---
Author Name Unknown Address Unknown Organization K1F:LABORATORY [facility] - [address] [address] Laboratory Report Ordering Provider Test Date Status CARMEN TAVERA 12/06/2024 06:53:00 Final Warfarin Therapy
INR: 2 .0-3.0 conventional anticoagulation
INR: 2.5- 3.5 high intensity anticoagulation Observation Date Value Abnormality Reference (Units ) Status PT 12/06/2024 06:53:00 22.5 Above high normal 11 .6-15.2 (seconds) Final INR 12/06/2024 06:53:00 2.0 Above high normal 0. 8-1.2 Final Performing Location LABORATORY [facility] - [address] [address]
--- OUTSIDE RECORDS SUMMARY | 2024-12-28 20:40 | External Medical Summary | Summary of Care ---
Author Name Unknown Organization [facility] Address [address] [place] [address] Phone [phone] Care Team Providers Care Bus Steward Name Role Phone Krystian Palomo MD Primary Care Provide r Reason for Visit * Auth/Cert Specialty Diagnoses / Procedures Referred By Contcharles t Referred To Contact Diagnoses abdominal ascities, AGUILAR cirrhosis, open wound Erwin Garvey MD [address] [place] [address] Phone: tel: fax: [place] [address] Referral ID Status Reason Start Date Expiration Date Visits Re quested Visits Authorized [id number] Encounter Details Date Type Department Care Team (Latest Contact Info) Description 12/05/2024 10:32 PM EST - 12/07/2024 1:17 PM [facility] Hospital Encounter 4B [facility], [facility] 4th Floor [address] [place] [id number] Erwin Garvey MD [address] [place], [place] [address] [address] Christopher Bledsoe MD [address] [place] [id number] Deandre Moses MD [address] [place] [address] Brian Ibarra MD [address] [place], [place] [address]ist Services ALEX HICKEY [id number] Pt Handout (on AVS) Discharge Disposition: Home - Self Care Allergies Active Allergy Reactions Criticality Noted Date Comments Aspirin 01/28/2022 Other reaction(s): bloody nose Salicylates 08/08/2001 nose bleeds documented as of this encounter (statuses as of 12/08/2024) Medications Multivitamin Adult Oral Tablet daily . [...] (Xifaxan)Indication s:Liver cirrhosis secondary to nonalcoholic steatohepatitis (AGUILAR) (HCC) TAKE ONE TABLET BY MOUTH EVERY [...] as of this encounter (statuses as of 12/08/2024) Active Problems Problem Noted Date Diagnosed Date Ascites 12/06/2024 Cardiac murmur 12/06/2024 Chronic hyponatremia 12/06/2024 Umbilical hernia 12/06/2024 Draining cutaneous sinus tract 12/06/2024 Malnutrition of moderate degree 12/06/2024 BPH without obstruction/lower urinary tract symp toms 12/22/2023 BMI 36.0-36.9,adult 10/24/2023 Overview (10/24/2023): 266 Liver cirrhosis secondary to AGUILAR 07/05/2023 Hepatic encephalopathy 03/28/2022 Overview (12/06/2022): admitted [facility], ammonia 110 [...] as of this encounter (statuses as of 12/08/2024) Resolved Problems Problem Noted Date Diagnosed Date [...] as of this encounter (statuses as of 12/08/2024) Immunizations Name Administration Dates Next Due COVID-19 [...] file Not on file Not on file CAREER SERVICES DIRECTOR Not on file Not on file Not on file documented as of this encounter Last Filed Vital Signs Vital Sign Reading Time Taken Comments Blood Pressure 104/55 12/07/2024 11:32 AM EST Pulse 98 12/07/2024 11:32 AM EST Temperature 36.6 C (97.9 F) 12/07/2024 11:[address] Respiratory Rate 18 12/07/2024 11:32 AM EST Oxygen Saturation 100% 12/07/2024 11:32 AM EST Inhaled Oxygen Concentration - - Weight 99.6 kg (219 lb 8 oz) 12/07/2024 6:25 AM EST Height 177.8 cm (5' 10") 12/05/2024 10:33 PM EST Body Mass Index 31.49 12/05/2024 10:33 PM EST documented in this encounter Functional Status * Are you deaf or do you have serious difficulty hearing? Answer Date of Assessment Author No 12/05/2024 10:37 PM EST Lucía Graff RN * Are you blind or do you have serious difficulty seeing, even when wearing glasses? Answer Date of Assessment Author No 12/05/2024 10:37 PM EST Lucía Graff RN * Do you have serious difficulty [...] Lucía Taylor RN documented in this encounter Discharge Summaries * Deandre Moses MD - 12/07/2024 11:49 AM EST [address] [address] Admission Date: 12/05/2024 Discharge Date: 12/07/2024 RECOMMENDED TO DO FOR NEXT PROVIDER(S): Follow-up with transplant team in 1 week REASON(S) FOR MEDICATION CHANGE(S): No further recommendation DISPOSITION ON DISCHARGE: home Active Hospital Problems Diagnosis *Principal Diagnosis - Draining cutaneous sinus tract Chronic hyponatremia Ascites Umbilical hernia Malnutrition of moderate degree (HCC) BPH without obstruction/lower urinary tract symptoms Liver cirrhosis secondary to AGUILAR (HCC) Type 2 diabetes mellitus with hemoglobin A1c goal of less than 7.0% (HCC) Resolved Hospital Problems No resolved problems to display. ADMISSION HISTORY & PHYSICAL EXAM (focused): Patient is a 59-year-old gentleman with a history of liver cirrhosis secondary to AGUILAR, diabetes mellitus type 2, hepatic encephalopathy, hyperlipidemia and hypertension and moderate aortic stenosis who has been having issues with chronic draining from his abdominal sinus formation, this area continues to leak ascitic fluid, the area is being covered by ostomy bag, patient was then transferred from [facility] here to be seen by interventional radiology, and placement of a PleurX catheter. Patient was seen and examined this morning, discussed with Interventional Radiology who stated that because patient did not have any remaining abdominal fluid, he was unable to put and insert a PleurX ca theter, then surgery was involved and they were asked to see if they can suture the area again to prevent leaking. In the meantime I reached transfer team at [facility] and they recommended that patient under no circumstances should get any intra-abdominal catheter placed as patient is undergoing evaluation for possible liver transplant. Patient was seen by General Surgery and underwent suturing of the opening, we will monitor for a few hours and then we will proceed with discharging him home. Instructions were given that this is probably the only other option besides "bag draining" that he can have and if it does not work then we have to just continue with the collecting the f luid in the ostomy bag. HOSPITAL COURSE (focused): Patient is a 59-year-old gentleman with a history of liver cirrhosis secondary to AGUILAR, diabetes mellitus type 2, hepatic encephalopathy, hyperlipidemia and hypertension and moderate aortic stenosis who has been having issues with chronic draining from his abdominal sinus formation, this area continues to leak ascitic fluid, the area is being covered by ostomy bag, patient was then transferred from [facility] here to be seen by interventional radiology, and placement of a PleurX catheter. Operations & Procedures: none Complications: none significant Significant Lab and Imaging Results: As mentioned above Results Pending at Discharge: Lab Results Pending at Discharge: None MEDICATION UPDATES AT DISCHARGE CONTINUE taking these medications INSTRUCTIONS Allopurinol 300 MG Tablet Commonly known as: Zyloprim Take 1 Tablet by mouth in the morning. In the morning.. atorvaSTATin 20 MG Tablet Commonly known as: Lipitor Take 1 Tablet by mouth in the morning. Colace 100 MG Capsule Generic drug: Docusate Sodium Take 1 Capsule by mouth in the morning and 1 Capsule before bedtime. Dexcom G7 Sensor Misc Use as directed every 10 days. DxE11.9 Insulin Degludec 100 UNIT/ML Sopn Commonly known as: Tresiba FlexTouch Inject 10 Units under the skin in the morning. Lactulose 10 GM/15ML solution Commonly known as: Constulose Take 45 mL by mouth in the morning and 45 mL at noon and 45 mL before bedtime. MagDelay 64 MG Tbec Generic drug: magnesium chloride ER Take 1 Tablet by mouth in the morning. midodrine HCl 2.5 MG Tablet Commonly known as: Proamatine Take 3 Tablets by mouth in the morning and 3 Tablets at noon and 3 Tablets in the evening. Multivitamin Adult Tabs daily . mupirocin calcium 2 % ointment Commonly known as: Bactroban Apply topically to affected area 3 times a day. At hospital discharge omeprazole 20 MG Cpdr Commonly known as: PriLOSEC Take 1 Capsule by mouth in the morning. 1 hour before the first meal of the day. [facility] America[facility] Verio Strp Generic drug: Glucose Blood Use to check blood sugars up to three times daily DxE11.9 potassium chloride ER 10 MEQ Tbcr Take 2 Tablets by mouth in the morning and 2 Tablets at noon and 2 Tablets before bedtime. Probiotic & Acidophilus Ex St Capsule Take 1 Capsule by mouth in the morning and 1 Capsule before bedtime. rifAXIMin 550 MG Tablet Commonly known as: Xifaxan TAKE ONE TABLET BY MOUTH EVERY MORNING AND ONE TABLET AT BEDTIME sodium chloride 1 GM Tablet Take 1 Tablet by mouth in the morning and 1 Tablet before bedtime. tamsulosin 0.4 MG Capsule Commonly known as: Flomax TAKE ONE CAPSULE BY MOUTH EVERY DAY Torsemide 20 MG Tablet Commonly known as: Demadex Take 1 Tablet by mouth in the morning. Vitamin C 1000 MG Tablet daily . SCHEDULED FOLLOW-UP: Future Appointments Appt Date/Time Provider Department 12/26/2024 9:00 AM [facility], [facility] 03/20/2025 10:30 AM Chino Carrillo PA-C Cardiology, [facility] 03/31/2025 4:00 PM Fernando Reina MD Nephrology, [facility] 04/18/2025 10:30 AM Ren Pineda CRNP Gastroenterology, [facility] 06/02/2025 10:00 AM Krystian Palomo MD Family Medicine [facility] 09/11/2025 2:[address] Radiology [facility] Other Information Indwelling Devices: LINES ALL Duration Drain Other-Describe Mid Abdomen 1 day Peripheral Line Anterior;Left Wrist 20 Gauge 1 day Vital Signs (last recorded): Most Recent Systolic BP: 104 mmHg (12/07/24 1132) Most Recent Diastolic BP: 55 mmHg (12/07/24 1132) Pulse: 98 (12/07/24 1132) Resp: 18 (12/07/24 113) Most Recent Temperature: 36.61 C (12/07/24 113) Weight: 99.6 kg (219 lb 8 oz) (12/07/24 0625) SpO2: 100 % (12/07/24 113) Allergies: Aspirin and Salicylates Activity: as tolerated Diet: age appropriate diet Code Status: Full Code Condition on Discharge: stable Isolation status: None Cognition: normal HOSPITAL CONSULTS ORDERED: GENERAL SURGERY CONSULT IP INTERVENTIONAL RADIOLOGY CONSULT IP ADULT PHYSICAL THERAPY CONSULT IP ADULT OCCUPATIONAL THERAPY CONSULT IP REFERRING PHYSICIAN: REF: KARSTEN DELGADO PRIMARY CARE PROVIDER: PCP: Krystian Palomo MD [address] [place] [address] / [place] [phone] (office) [phone] (fax) Note: To contact a physician responsible for this patients hospital care, please call [employer] [phone]. I spent a total of 25 minutes coordinating, documenting, and providing care for this patient excluding time spent in the performance of separately billed services. documented in this encounter Discharge Instructions * Appointments* Maria Elena Anders NA/UDC - 12/07/2024 11:58 AM EST Please call your Family Practice Provider at for a one week follow up appointment. * Discharge Instr - AVS* Deandre Moses MD - 12/07/2024 11:49 AM EST Discharge Date: 12/07/2024 The information below provides you with the instructions and the list of medications you need to betaking following discharge from the hospital. If you have any questions, please ask before leaving. If you have questions after leaving, you can reach us at the numbers below. YOUR HOSPITAL PROVIDERS: Discharging Provider: Deandre Moses MD Provider Department: Hospital Medicine To reach this Provider Monday through Monday (8:00 AM to 4:30 PM) for any questions or test results: Call [phone] For after-hours concerns: Call [phone] and have your provider paged, or the provider solution designer for the Department of Hospital Medicine paged. Please note, the discharging provider will not be able to provide you with any medications refills.Please discuss these with your primary care provider. Worsening Symptoms: If you have new symptoms, or your symptoms get worse, please contact your Discharge Provider or Primary Care Provider (PCP). If these providers are not available, you can go to your local [facility] or [facility] Care Clinic during their business hours. In an EMERGENCY situation: Call 911 or go to the nearest emergency room. A BRIEF SUMMARY OF YOUR HOSPITAL STAY: You came to the hospital with: complaint of persistent leak from abdominal wound Your main diagnosis at discharge was: Ongoing ascitic fluid in the abdomen as a result of underlying liver disease which is chronic Operations & Procedures performed: Suturing of the abdominal wall opening Complications: none significant Inpatient test results that are pending at discharge: none Advance Directive Documented: Advance Directive Does the Patient have an Advance Directive? No YOUR FOLLOW UP APPOINTMENTS: Primary Care Provider Information: PCP: Krystian Palomo MD [address] [place] [address] / [place] [address] (office) [phone] (fax) An appointment was requested with your PCP (Krystian Palomo MD) within 7 days. (Please take this form to this visit with your primary care physician.) Please contact your transplant team at [facility] in 1 week You need the following studies in the future: none INSTRUCTIONS: Diet: Normal diet, Previous diet Activity: No restrictions Based on our conversation with transplant team, you may not get a catheter in the abdomen as this will jeopardized risk of chance of liver transplant in the future, if the suturing would hold the abdominal fluid and prevent leaking then you might need intermittent drainage with the assistance of inserting the needle, otherwise the only option for you would be to keep the ostomy bag in place to use the "bag drainage" Additional Instructions: - Call your primary care physician or seek medical attention if fever. documented in this encounter Progress Notes * Deandre Moses MD - 12/06/2024 4:32 PM EST Images from the original note were not included. [facility] [id number] INTERVAL HISTORY: Patient is a 59-year-old gentleman with a history of liver cirrhosis secondary to AGUILAR, diabetes mellitus type 2, hepatic encephalopathy, hyperlipidemia and hypertension and moderate aortic stenosis who has been having issues with chronic draining from his abdominal sinus formation, this area continues to leak ascitic fluid, the area is being covered by ostomy bag, patient was then transferred from [facility] here to be seen by interventional radiology, and placement of a PleurX catheter. Patient was seen and examined this morning, discussed with Interventional Radiology who stated that because patient did not have any remaining abdominal fluid, he was unable to put and insert a PleurX ca theter, then surgery was involved and they were asked to see if they can suture the area again to prevent leaking. In the meantime I reached transfer team at [facility] and they recommended that patient under no circumstances should get any intra-abdominal catheter placed as patient is undergoing evaluation for possible liver transplant. At this time we are planning to keep the patient overnight to be seen by surgery for possible suturing the area again to prevent ongoing draining and then probably patient can be discharged. Objective Physical Exam Most Recent Vital Signs: BP: 118 mmHg/57 mmHg (12/06/241533) Pulse: 104 (12/06/241533) Resp: 16 (12/06/241533) Temp: 36.5 C (12/06/241533) Temp Summary: Temp Min: 35.9 C (96.6 F) Max: 36.5 C (97.7 F) SpO2: 100 % (12/06/241533) O2 flow rate: Supplemental O2 Delivery: Room Air, None (12/06/241533) Constitutional: no acute distress Chest: normal respiratory effort, lungs clear to auscultation and percussion Abdomen: soft, no mass, there is a ostomy bag covering the abdominal hernia site. Extremities: no clubbing, cyanosis, or edema, otherwise grossly normal, warm, and dry Peripheral Line Anterior;Left Wrist (Active) Number of days: 1 Drain Other-Describe Mid Abdomen (Active) Number of days: 0 STUDIES: Encounter Orders Labs and other studies reviewed with pertinent findings noted below: IR INTERVENTIONAL RADIOLOGY PROCEDURE IN OR Final Result PROCEDURE: Limited abdominal ultrasound INDICATION: PleurX catheter placement, abdominal ATTENDING (OPERATING PHYSICIAN): Stacey CONSENT: After a detailed discussion of the procedure, risks, benefits and alternative treatment options, informed consent was obtained. Limited ultrasound irrigation demonstrates no ascites to allow safe placement of a PleurX catheter within the abdomen. I personally performed the procedure. FINDINGS: No ascites IMPRESSION IMPRESSION: Planned PleurX catheter placement canceled IR CHEST PLEUR X CATHETER (Results Pending) Latest Reference Range & Units 12/06/24 00:36 SODIUM 135 - 146 mmol/L 129 (L) POTASSIUM 3.5 - 5.1 mmol/L 4.3 CHLORIDE 98 - 107 mmol/L 96 (L) CO2 22 - 32 mmol/L 21 (L) BUN 6 - 20 mg/dL 14 CREATININE 0.6 - 1.2 mg/dL 1.1 EGFR >=60 mL/min 79 ANION GAP 7 - 15 mmol/L 12 GLUCOSE 70 - 120 mg/dL 175 (H) CALCIUM 8.4 - 10.2 mg/dL 8.2 (L) Protein 6.0 - 8.3 g/dL 5.6 (L) (L): Data is abnormally low (H): Data is abnormally high Assessment and Plan IMPRESSION : Principal Problem: Draining cutaneous sinus tract Active Problems: Type 2 diabetes mellitus with hemoglobin A1c goal of less than 7.0% (HCC) Liver cirrhosis secondary to AGUILAR (HCC) BPH without obstruction/lower urinary tract symptoms Ascites Chronic hyponatremia Umbilical hernia Malnutrition of moderate degree (HCC) Resolved Problems: * No resolved hospital problems. * I have examined the patient and consistent with the dietitian's findings found malnutrition presentof Moderate (12/06/241447) degree. This is consistent with such due to Fat loss;Muscle loss;Inadequate energy intake (12/06/241447). I have also reviewed and agree with the dietitian's plan of carewhich include Upon diet advancement, will order/adjust oral nutrition supplement (12/06/241447). DIFFERENTIAL AND PLAN: 1. Liver cirrhosis with decompensation and ongoing abdominal ascites/abdominal draining sinus No infectious complication, he is doing just fine by collecting the abdominal ascitic fluid draining into the ostomy bag however to see if suturing which seems to have been done in the past, be triedagain, this will be attempted tomorrow. Continue with lactulose,, rifaximin. 2. Gout Continue with allopurinol 300 mg daily. 3. Hyperlipidemia Continue with Lipitor 20 mg daily. 4. Disposition/plan Hopefully once the suturing is taken place tomorrow, after the procedure patient can be discharged home. Abdominal draining sinus - Stable PHARMACOLOGIC VTE PROPHYLAXIS: This patient does not have an active medication from one of the medication groupers. CODE STATUS: Full Code EXPECTED DISCHARGE DATE: 12/09/2024 I spent a total of 45 minutes coordinating, documenting, and providing care for this patient excluding time spent in the performance of separately billed services or time spent by another provider/QHP. documented in this encounter H&P Notes * Mina Oleary MD - 12/05/2024 11:25 PM EST Images from the original note were not included. [facility] [id number]/W PRESENTING PROBLEM: HPI: 59 y/o M with known history of liver cirrhosis secondary to AGUILAR, DM2, hx of hepatic encephalopathy, HLD, HTN, moderate aortic stenosis, BPH, gout, and others. Patient is a transfer from [facility] due to ascitic fluid leakage from an umbilical hernia wound. Patient notes that about two weeks ago his umbilical hernia was dry, he applied moisturizer to the site but one day later patient noticed a scab at that site. Scab eventually fell off which then produced copious leakageof fluid from umbilical wound site. Patient did have the umbilical wound sutured, with dermabond placed at wound site by surgery at [facility] on 12/02/24. On 12/05/24, while at [facility], patienthad colostomy bag placed over his wound with a connection to sahu catheter for drainage as to not overload colostomy bag. Patient endorses that about 6 L of ascitic fluid drained on 12/05/24. He normally gets paracentesis every 10 days and usually has 7 L of fluid removed at a time. Takes lactulose regularly for hepatic encephalopathy. While at [facility], surgery advised to get paracentesis before further fluid builds up. He denies nausea, vomiting. Denies significant abdominal pain. Denies diarrhea. Denies dysuria. Denies chest pain or shortness of breath. Denies fever. Subjective Patient's past history, medications, and allergies were reviewed. Objective Physical Exam Most Recent Vital Signs: BP: 100 mmHg/59 mmHg (12/05/242233) Pulse: 99 (12/05/242233) Resp: 20 (12/05/242232) Temp: 36.44 C (12/05/242232) Temp Summary: Temp Min: 36.4 C (97.6 F) Max: 36.4 C (97.6 F) SpO2: 100 % (12/05/242232) O2 flow rate: Supplemental O2 Delivery: Room Air, None (12/05/242236) Physical Exam Constitutional: Appearance: Normal appearance. He is not ill-appearing or toxic-appearing. Cardiovascular: Rate and Rhythm: Normal rate. Pulses: Normal pulses. Heart sounds: Murmur heard. Pulmonary: Effort: Pulmonary effort is normal. No respiratory distress. Breath sounds: Normal breath sounds. No wheezing. Abdominal: General: Bowel sounds are normal. Palpations: Abdomen is soft. Tenderness: There is no abdominal tenderness. There is no guarding. Hernia: A hernia is present. Hernia is present in the umbilical area. Comments: Colostomy bag present over umbilical hernia. No leakage out from colostomy bag. Musculoskeletal: General: Normal range of motion. Right lower leg: No edema. Left lower leg: No edema. Neurological: Mental Status: He is alert and oriented to person, place, and time. Peripheral Line Anterior;Left Wrist (Active) Number of days: 0 STUDIES: Encounter Orders Labs and other studies reviewed with pertinent findings noted below: Labs: Pending Imaging: No imaging results in the last 72 hours Assessment and Plan IMPRESSION: Active Problems: * No active hospital problems. * Resolved Problems: * No resolved hospital problems. * DIFFERENTIAL AND PLAN: 59 y/o M with known history of liver cirrhosis secondary to AGUILAR, DM2, hx of hepatic encephalopathy, HLD, HTN, moderate aortic stenosis, BPH, gout, and others. Admitted to med-surg. Patient is currently vitally stable. Not having abdominal pain at this time. Patient's abdomen is soft with no signs of peritonitis. Given stable vitals and afebrile status, will avoid prophylactic treatment with antibiotics. Liver Cirrhosis secondary to AGUILAR: -Will hold DESULFURIZER MACHINE medications until further lab work results are obtained. -CMP, CBC, PT/INR stat. -NPO after midnight for possible plurex catheter insertion. -IR consult pending -GI consult pending -Surgery consult pending DM2: -Medium dose ISS -F/u A1c *f/u on Mag and Phos (AM Draw). PHARMACOLOGIC VTE PROPHYLAXIS:This patient does not have an active medication from one of the medication groupers. CODE STATUS: Full Code EXPECTED DISCHARGE DATE: No information available This patient was seen, examined, and discussed with Dr. Ibarra at the time of admission. Mina Oleary MD 12/05/2024 11:50 PM Cosigned by Brian Ibarra MD at 12/06/2024 12:42 AM EST Associated attestation - Brian Ibarra MD - 12/06/2024 12:42 AM EST I saw and evaluated the patient today. I have reviewed the resident/fellow physician note and agree. Briefly, this is a 59 yo man with aguilar cirrhosis and ascites. He was transferred from [facility] with hope of managing his draining sinus located in area of umbilical hernia. Apparently he drained over 4L of fluid yesterday. Plan as discussed with [facility] provider was to have IR review the case and possibly place a draining catheter for recurrent ascites. He denies fever, chills, abdominal pain, dyspnea, or chest pain. On exam: chronically ill appearing man resting comfortably in bed Chest: cta Cv: rr Abd: soft, there is a colostomy bag over an umbilical hernia and it's draining clear-yellow liquid Ext: trace edema. Results for orders placed or performed during the hospital encounter of 12/05/24 GLUCOSE METER, POINT OF CARE Result Value Ref Range Glucose - POCT 114 70 - 120 mg/dL Reviewed labs from [facility]: Wbc 5. Hgb 8. Plt 66 NA 130, potassium 3.7. creat 0.9 bicarb 28 Bili 3.3 ast/alt 54/25 Alb 2.7 Lipase 70 IMP: draining sinus at umbilical hernia in setting of cirrhosis and ascites. Hyponatremia is present and likely chronic -admit to med-surg bed -consult surgery regarding hernia repair in this setting -consult IR regarding draining catheter placement -npo after midnight -insulin for for dm mgt -will need close monitoring of lytes and replacement as needed; potassium not ordered at this time but he is on chronic replacement of k+ at home Scd for dvt prophylaxis documented in this encounter Consult Notes * Maria Elena Hummel, PT - 12/06/2024 12:40 PM ESTAssociated Order(s): ADULT PHYSICAL THERAPY CONSULT IP GENERAL EVALUATION - Physical Therapy [facility]-[address] [address] Name: Lloyd Spencer Location: [place] [id number]/ Date: 12/06/2024 Time: 1240 Lloyd Spencer is a/an 59 year old male. Patient Status: Inpatient Insurance: Payor: GENERIC COMMERCIAL Plan: GENERIC COMMERCIAL Product Type: *No Product type* Patient Seen: at bedside. Patient Identified By: Name, ID Band and Date Diagnosis: abdominal ascites, liver cirrhosis (12/06/241239) Status of treatment: OOB evaluation completed (12/06/241239) Orders: PT evaluation and treatment (12/06/241239) Weight Bearing Status: Weight bearing as tolerated (12/06/241239) Precautions: Falls;Sahu;Safety (12/06/241239) Total Treatment Time--free text: 42 (in 2 sessions) (12/06/241239) As per H&P: " 59 y/o M with known history of liver cirrhosis secondary to AGUILAR, DM2, hx of hepatic encephalopathy, HLD, HTN, moderate aortic stenosis, BPH, gout, and others. [facility] due to ascitic fluid leakage from an umbilical hernia wound. Patient notes that about two weeks ago his umbilical hernia was dry, he applied moisturizer to the site but one day later patient noticed a scab at that site. Scab eventually fell off which then produced copious leakage of fluid from umbilical wound site. Patient did have the umbilical wound sutured, withdermabond placed at wound site by surgery at [facility] on 12/02/24. On 12/05/24, while at [facility], patient had colostomy bag placed over his wound with a connection to sahu catheter for drainage as to not overload colostomy bag. Patient endorses that about 6 L of ascitic fluid drained on 12/05/24. He normally gets paracentesis every 10 days and usually has 7 L of fluid removed at a time. Takes lactulose regularly for hepatic encephalopathy. While at [facility], surgery advised to get par acentesis before further fluid builds up. He denies nausea, vomiting. Denies significant abdominal pain. Denies diarrhea. Denies dysuria. Denies chest pain or shortness of breath. 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 Blood type A+ 09/21/2023 BMI 35.0-35.9,adult Cancer, hepatocellular (HCC) Diverticulitis of colon Diverticulosis of colon DM type 2, goal A1c below 7 02/26/2010 HGBA1C 7.5 Family history of colon cancer Mother, Neema Payneigh Fracture of rib of right side 12/21/2013 cortical fx anterior right 9th rib Gout 08/08/2001 uric acid 9.0 Hepatic encephalopathy (HCC) 03/28/2022 admitted [facility], ammonia 110 Hyperlipidemia LDL goal < 100 Infection due to human metapneumovirus (hMPV) 01/27/2020 COVID neg Ingrown toenail of both feet 04/04/2022 both big toenails trimmed for ingrown nails Clyo Liver cirrhosis secondary to AGUILAR (HCC) Liver cirrhosis secondary to AGUILAR (nonalcoholic steatohepatitis) (HCC) Metabolic syndrome 11/04/2009 Morbid obesity with BMI of 40.0-44.9, adult (HCC) Need for hepatitis C screening test 02/11/2014 Hepatitis C negative Other abnormal glucose 11/04/2009 glucose 192 Other acute rheumatic heart disease 1971 was on pcn for 11 years. Screening for HIV (human immunodeficiency virus) 12/11/2014 negative Thrombocytopenia (HCC) 05/21/2020 84,000 Thrombosed external hemorrhoid 01/18/2013 [facility] ER Urinary retention 08/27/2023 maybe from constipation? [facility] Past Surgical History: Past Surgical History: Procedure Laterality Date ABD/PELVIS CT W/O IV AND W/O PO CONTRAST 03/30/2010 diverticulitis, [facility] CHG CT HEAD/BRAIN W/O CONTRAST MATERIAL 02/27/2024 no acute changes to explain encephalopathy COLONOSCOPY, DIAGNOSTIC (RECTUM) 06/07/2019 normal, repeat 5 yrs/[facility] COLONOSCOPY, DIAGNOSTIC (RECTUM) N/A 01/11/2024 hemorrhoids/recall 5 years/Col[place]oscopy/[place] COLORECTAL CANCER SCREEN; COLON 05/22/2010 wnl , [...] performed by Gerardo Workman MD at ENDOSCOPY [facility] EGD, FLEXIBLE, DIAGNOSTIC 07/04/2023 Portal hypertensive gastropathy., esophagus and duodenuum normal (EGD), FLEXIBLE, TRANSORAL, DIAGNOSTIC performed by Juli Krause DO at ENDOSCOPY [facility] EGD, FLEXIBLE, DIAGNOSTIC N/A 09/05/2024 moderate portal hypertensive gastropathy/recall 2 years/ESOPHAGOGASTRODUODENOSCOPY (EGD), FLEXIBLE,TRANSORAL, DIAGNOSTIC performed by Jayla Armstrong MD at OR [facility] FOBT (EIA) 08/27/2023 negative IR BIOPSY 10/04/2024 IR CANCER CHEMO EMBOLIZATION (TACE) 08/02/2023 IR CANCER CHEMO EMBOLIZATION (TACE) 04/11/2024 IR PROCEDURE NOT PERFORMED DOCUMENTATION ONLY 06/18/2024 MRI ABDOMEN W CONTRAST 06/09/2023 2 spots in liver suggestive of hepatocellular carcinoma, varices, GB thickened, splenomegaly. cirrhotic liver STRESS ECHO (EXERCISE) 11/30/2006 normal, EF 60% US ABDOMEN LIMITED 02/27/2024 small amount of ascites, <500 cc Subjective: "I haven't been doing much lately." Social History/Disposition Lives with: Family (elderly mother and brother (w/c bound)) (12/06/241239) Assistance available: No (12/06/241239) Dwelling type: Single story home (trailer home) (12/06/241239) Entry steps: Ramp (12/06/241239) Inside steps: None (12/06/241239) Bedroom location: 1st floor (12/06/241239) Bath location: 1st floor full bath (12/06/241239) Prior Level of Function Reported by: Patient;Chart review (12/06/241239) Ambulation: Ambulatory with device (12/06/241239) Ambulatory Device: Cane (12/06/241239) Devices at home: Shower chair;Straight cane (12/06/241239) Observations Consciousness: Alert (12/06/241239) Orientation: Person;Place (12/06/241239) Psychosocial: Patient can communicate basic needs;Patient can converse in a social setting (12/06/241239) Other Findings: Yes (12/06/241239) Findings: Light touch sensation;Edema;Tone (12/06/241239) Light Touch Sensation Results: Intact;LLE;RLE (12/06/241239) Edema Results: Absent;LLE;RLE (12/06/241239) Tone Results: Intact;LLE;RLE (12/06/241239) Sitting Posture: Forward head;Rounded shoulders (12/06/241239) Standing Posture: Forward head;Rounded shoulders;Anterior lean (12/06/241239) Pain: No complaints of pain Range of Motion Range of Motion: WFL (12/06/241239) Strength Assessment Strength Assessment: Deficits noted (12/06/241239) WNL, except: LLE;RLE (12/06/241239) LLE: Hip;Knee;Ankle;3+/5 (12/06/241239) RLE: Hip;Knee;Ankle;3+/5 (12/06/241239) P.T. Bed Mobility Roll (Right): Supervision (12/06/241239) Supine-Sit: Supervision (12/06/241239) Sit-Supine: Supervision (12/06/241239) Transfers Sit-Stand: Contact Guard (12/06/241239) Stand-Sit: Supervision (12/06/241239) W/C-Bed/Mat: Contact Guard (12/06/241239) Ambulation: Distance ambulated (feet): 65 Assistive Device: Rolling walker Assist: Minimal Assistance Balance Sit (Static): Good (12/06/241239) Sit (Dynamic): Fair (12/06/241239) Stand (Static): Fair (12/06/241239) Stand (Dynamic): (Fair- at RW) (12/06/241239) Patient and or Family Goal(s): to get well and to return home. Pt denies any recent falls. 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 Patient Education Review of Precautions: Safety;Fall (use of call [place] for assistance, pt verbalizes understanding) (12/06/241239) Safety Awareness: Patient verbalizes insight of current deficits;Patient can communicate basic needs;Needs cueing supervision;Patient demonstrates carryover of insight during functional tasks (12/06/241239) Preferred learning method: Combination (12/06/241239) Barriers to learning: Medical Status (12/06/241239) Method of Education: Verbalized to patient;Patient demonstrated task (12/06/241239) Topic of Education: Safety with mobility, Goals/plan of care, Use of assistive device, Fall prevention, and discharge planning. Method of Education: Verbal discussion and explanation provided to pt regarding goals for PT consult, safety and fall prevention strategies, use of AD and discharge planning: verbalized understandingand or agreement of this information and demonstrated the exercise and or task Treatment Provided: Therapeutic Activities 14 minutes: bed mobility training transfer training Gait Training 12 minutes: gait training with rolling walker Evaluation Moderate Complexity 16 minutes - [id number]: Patient was cooperative, pleasant, motivated, alert, and willing to participate during treatment session. Moderate complexity evaluation performed and 1-2 personal factors or comorbidities were identified that will impact plan of care, including cognitive status, obesity, and this admission for abdominal ascites, liver cirrhosis. Patient presentswith limitations in strength, bed mobility, transfers, gait, balance, endurance, and safety, which will impact plan of care. These limitations will be addressed by the goals set for this patient. Alarm Status Patient positioned in: Bed (12/06/241239) With: Call obregon in reach (12/06/241239) Treatment Status: Treatment at bedside (12/06/241239) Goals(within 6 sessions): Demonstrate Bed Mobility with: Supine <> Sit: independent (pt does 100%) Demonstrate Transfers with: Sit <> stand: independent (pt does 100%) Bed <> chair: independent (pt does 100%) Demonstrate Ambulation: level of assistance on level surface: modified independent (with device or slow) with RW or SPC >200 ft Increase Safety: with use of AD and assistance as needed for fall prevention strategies Assessment: PT consult completed in 2 sessions with pt demonstrating supervision for R rolling and supine to sit EOB with fair/good sitting balance. CGA for STS x 3 reps and amb with RW and min A 65 ft with impulsivity and anterior lean. Pt fatigues quickly and is high risk for falls at this tiime.B LE strength grossly: 3+/5 t/o and standing balance is fair-/fair at RW. Recommend pt use RW instead of his typical SPC for added stability and safety at this time and pt is agreeable. Pt returns tosupine for comfort with supervision. Would consider post-acute care services which may include homehealth, shelter, outpatient therapy, or inpatient rehab. The level of care will be determined in collaboration with the patient, family/caregiver, and care team members. AMPAC of 17 Deficits requiring P.T. treatment needs: Safety;Mobility;Balance;Weakness;Endurance;Lower extremitystrength (12/06/241239) Equipment Needs: Equipment needs: Rolling walker (12/06/241239) Treatment Plan: Bed mobility training, Transfer training, Gait training, and Educate on safety withuse of AD and assistance for fall prevention strategies. Anticipated Frequency (on eval): (1-5x/week) (12/06/241239) AM PAC Score with Stairs: 17 * Gisela Jackson RDN - 12/06/2024 9:45 AM EST CLINICAL NUTRITION CONSULT/PROGRESS NOTE [facility]-[address] [phone] Name: Lloyd Spencer Location: [facility] [id number] Date: 12/06/2024 Time: 9:45 AM How patient was identified (select 2): date and Name Discussed in interdisciplinary rounds: Yes Lloyd Spencer is a 59 year old male being seen for reduced dietary intake Primary Diagnosis: Draining cutaneous sinus tract Other pertinent information: Met with patient at bedside to assess nutritional status. Patient reports that his appetite has not been the best for a while due to the fluid build-up. Patient states that when he does eat he eats smaller meals due to feeling full quickly. He denies any nausea/vomitingbut does report occasional dry heaves. Patient reports that he follows a low sodium diet, reports buying salt alternative. He also watches he carbohydrate/sugar intakes and buys more sugar -free items when he can. He reports that he dislikes cooked vegetable --only eats them raw. Patient also reports drinking lactaid milk at home. He lives with his brother and mother, his brother does the majority of the cooking. He states that he has medications to help with constipation. Patient states that his usual body weight is around 243 lbs but that he was up to 314 due to fluid. Patient receives frequent paracentesis, reports that they frequently take 4-7 liters of fluid off. Per EHR, pt has had 10% wt loss x 2 months, suspect due to fluid and/or a combination of fluid loss and poor PO. Asked pt if he has ever had diet education for cirrhosis, pt stated no. Provided pt with Cirrhosis Nutrition Therapy and discussed increased protein needs. Patient verbalized understanding, states that he has been eating more protein. Discussed good sources of protein and to try to consume protein first in his meals. Additionally discussed smaller, more frequent meals due to feeling full. Performed a nutrition focused physical exam today, pt presents with mild fat and muscle loss--currently meets criteria for moderate malnutrition. Patient reports that he has noticed muscle loss. Discussed cirrhosis and increased risk of muscle loss. Patient is agreeable to boost glucose control BID once diet is advanced. He had no other nutritional questions or concerns at this time. NUTRITION ASSESSMENT: Past medical/surgical history and medications reviewed. Food/Nutrition-Related History Diet: NPO Previously followed diet: Low sodium , watches carbohydrates Food Allergies/Intolerances: NKFA, pt recently swtiched to lactaid milk, thinks may be lactose intolerant/does not tolerate milk too well Adult Energy Intake: Less than 75% of estimated energy requirement for greater than 1 month (moderate/severe, chronic illness). Oral Nutrition Supplement (ONS): None Pertinent medications/vitamins/minerals/supplements: colace, novolog, magnesium L-lactate, omeprazole, vitamin C Pertinent Biochemical Data: There are no biochemical abnormalities requiring a change in the nutrition plan of care. Nutrition-Focused Physical Findings: Appearance: Ill-appearing and Jaundice Respiratory support: Supplemental O2 Delivery: Room Air, None Nasal/Oral: No issues identified Digestive: Appetite fair Last Bowel Movement: 12/05/24 (as per pt) (12/05/242236) Cognition: Awake, alert and Oriented Skin: Compromise without nutrition-related implications Enteral access: None Nutrition Focused Physical Exam: NFPE completed on 12/06/24 Subcutaneous Fat Loss: Orbital fat pads: Mild Buccal fat: WNL Tricep: Mild Muscle Loss: Temples: WNL Clavicles: Mild Shoulders: WNL Interosseous: Mild Quadriceps: WNL Calves: WNL Anthropometrics Measurements Height: 177.8 cm (5' 10") (12/05/242232) Admission weight: 99.2 kg Weight: 99.2 kg (218 lb 11.1 oz) (12/05/242232) BMI: 31.38 (12/05/242232) Usual Body Weight: 110.4 kg Doyline weight: 78.7 kg Doyline Weight Based on BMI: 24.9 Interpretation of Weight Change Prior to Admission: Change likely secondary to fluid 10% x 2 months --likely due to fluid Nutrition Prescription: Energy needs: 22-25 Kcal/kg Kcal/day: 3837-0826 Based on current weight Protein needs: 1.2-1.4 gm/kg Protein: 119-139 Based on current weight Fluid needs: 30 ml/kg Fluid: 2976 ml/day Based on current weight Malnutrition: Malnutrition Present: Yes (12/06/241447) Adult Malnutrition Classification: Moderate (12/06/241447) Malnutrition Characteristics: Fat loss;Muscle loss;Inadequate energy intake (12/06/241447) Malnutrition Care Plan: Patient meets ASPEN/AND criteria for moderate malnutrition. Patient is currently NPO secondary to testing. To follow for initiation of diet and/or implementation of appropriate malnutrition intervention per clinical guidelines. Should diet not be initiated in2-3 days, will consider enteral or parenteral nutrition. Dietitian Action: Upon diet advancement, will order/adjust oral nutrition supplement (12/06/241447) Boost Glucose Control (1 cup provides 190 calories, 16 grams protein, 16 grams carbohydrate) BID NUTRITION DIAGNOSIS: Increased nutrient needs protein related to cirrhosis as evidenced by catabolic nature of disease. Malnutrition moderate related to chronic illness as evidenced by patient consuming less than 75% ofestimated energy requirements x 1 month, mild fat loss, and mild muscle loss. Goals: Diet advancement or initiation of enteral/parenteral nutrition within 24-48 hours. NUTRITION INTERVENTION/PLAN: Education provided: Other Education Material: [employer] Nutrition Care Manual Handout Cirrhosis Nutrition Therapy Continue to monitor NPO/clear liquid status Clinical Nutrition Recommendations: Diet: Advance diet when clinically feasible NUTRITION MONITORING AND EVALUATION: NPO status/diet advancement and tolerance Lab values warranting change with MNT Weight for trends Plan follow-up: Will follow and adjust nutrition plan of care as medical condition requires. Please contact for change(s) in patient condition requiring earlier intervention. Gisela Jackson MS, RDN, LDN Clinical Nutrition [facility] Available via [employer] Text [phone] * Beatriz Robbins DO - 12/06/2024 8:48 AM ESTAssociated Order(s): GENERAL SURGERY CONSULT IP ` ````````````````````````````````````CONSULT - General Surgery [facility]-[address] [address] Name: Lloyd Spencer Location: [facility] [id number] Date: 12/06/2024 Time: 8:49 AM REQUESTING SERVICE: Hospitalist REASON FOR CONSULT: Lloyd Spencer [facility] is seen at the request of Dr. Ibarra in consultation for leaking umbilical hernia; losing over 4L per day . HISTORY OF PRESENT ILLNESS: Lloyd Spencer is a 59 y/o male with AGUILAR cirrhosis and hepatocellular carcinoma s/p IR embolization who was transferred from [facility] due to a leaking umbilical hernia and need for IR intervention which was not available at OSH. He has had drainage from this area and it has been sutured by surgery, most recently on 12/02. Patient states it started draining again several days after being sutured. He was seen by IR today and a PleurX catheter could not be placed as there was no significant intra-abdominal ascites. 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 Blood type A+ 09/21/2023 BMI 35.0-35.9,adult Cancer, hepatocellular (HCC) Diverticulitis of colon Diverticulosis of colon DM type 2, goal A1c below 7 02/26/2010 HGBA1C 7.5 Family history of colon cancer MotherNeema Fracture of rib of right side 12/21/2013 cortical fx anterior right 9th rib Gout 08/08/2001 uric acid 9.0 Hepatic encephalopathy (HCC) 03/28/2022 admitted [facility], ammonia 110 Hyperlipidemia LDL goal < 100 Infection due to human metapneumovirus (hMPV) 01/27/2020 COVID neg Ingrown toenail of both feet 04/04/2022 both big toenails trimmed for ingrown nails Clyo Liver cirrhosis secondary to AGUILAR (HCC) Liver cirrhosis secondary to AGUILAR (nonalcoholic steatohepatitis) (HCC) Metabolic syndrome 11/04/2009 Morbid obesity with BMI of 40.0-44.9, adult (HCC) Need for hepatitis C screening test 02/11/2014 Hepatitis C negative Other abnormal glucose 11/04/2009 glucose 192 Other acute rheumatic heart disease 1971 was on pcn for 11 years. Screening for HIV (human immunodeficiency virus) 12/11/2014 negative Thrombocytopenia (HCC) 05/21/2020 84,000 Thrombosed external hemorrhoid 01/18/2013 [facility] ER Urinary retention 08/27/2023 maybe from constipation? [facility] PAST SURGICAL HISTORY: Past Surgical History: Procedure Laterality Date ABD/PELVIS CT W/O IV AND W/O PO CONTRAST 03/30/2010 diverticulitis, [facility] CHG CT HEAD/BRAIN W/O CONTRAST MATERIAL 02/27/2024 no acute changes to explain encephalopathy COLONOSCOPY, DIAGNOSTIC (RECTUM) 06/07/2019 normal, repeat 5 yrs/[facility] COLONOSCOPY, DIAGNOSTIC (RECTUM) N/A 01/11/2024 hemorrhoids/recall 5 years/[place] COL[place] SCREEN; COLON 05/22/2010 wnl , [...] performed by Gerardo Workman MD at ENDOSCOPY [facility] EGD, FLEXIBLE, DIAGNOSTIC 07/04/2023 Portal hypertensive gastropathy., esophagus and duodenuum normal (EGD), FLEXIBLE, TRANSORAL, DIAGNOSTIC performed by Juli Krause DO at ENDOSCOPY [facility] EGD, FLEXIBLE, DIAGNOSTIC N/A 09/05/2024 moderate portal hypertensive gastropathy/recall 2 years/ESOPHAGOGASTRODUODENOSCOPY (EGD), FLEXIBLE,TRANSORAL, DIAGNOSTIC performed by Jayla Armstrong MD at OR [facility] FOBT (EIA) 08/27/2023 negative IR BIOPSY 10/04/2024 IR CANCER CHEMO EMBOLIZATION (TACE) 08/02/2023 IR CANCER CHEMO EMBOLIZATION (TACE) 04/11/2024 IR PROCEDURE NOT PERFORMED DOCUMENTATION ONLY 06/18/2024 MRI ABDOMEN W CONTRAST 06/09/2023 2 spots in liver suggestive of hepatocellular carcinoma, varices, GB thickened, splenomegaly. cirrhotic liver STRESS ECHO (EXERCISE) 11/30/2006 normal, EF 60% US ABDOMEN LIMITED 02/27/2024 small amount of ascites, <500 cc FAMILY HISTORY: Family History Adopted: Yes Problem Relation Name [...] Leoncio Heart attack Brother Leoncio Diabetes Brother Bill Hyperlipidemia Brother Leoncio No Known Problems Brother Mathew SOCIAL HISTORY: Social History Tobacco Use Smoking status: Never Smokeless tobacco: Former Types: Chew Quit date: 05/18/2005 Vaping Use Vaping status: Never Used Substance Use Topics Alcohol use: No Drug use: No ALLERGIES: Aspirin and Salicylates ROS: Constitutional: (-) fever chills sweats or weight loss Abdominal/GI: (-) negative: no pain, heartburn, dysphagia, bleeding, change in bowel habits, nauseaor vomiting PHYSICAL EXAMINATION: Most Recent Vital Signs: BP: 96 mmHg/52 mmHg (12/06/24699) Pulse: 91 (12/06/24699) Resp: 18 (12/06/24699) Temp: 36.11 C (12/06/24699) Temp Summary: Temp Min: 35.9 C (96.6 F) Max: 36.4 C (97.6 F) SpO2: 100 % (12/06/24699) O2 flow rate: Supplemental O2 Delivery: Room Air, None (12/06/24741) Vital Signs Over Last 24 Hours: Systolic BP: Most Recent Systolic BP Av.8 mmHg Min: 96 mmHg Max: 102 mmHg Temperature: Most Recent Temperature Av.1 C Min: 35.89 C Max: 36.44 C Pulse: Pulse Av.5 Min: 91 Max: 104 Respirations: Resp Av.3 Min: 18 Max: 20 SpO2: SpO2 Av % Min: 100 % Max: 100 % Constitutional: no acute distress, (+) chronically ill HEENT: normal: normocephalic, atraumatic; no masses, tenderness, or adenopathy Eyes: icterus Neck: supple, normal range of motion CV: normal rate, normal rhythm Chest: normal respiratory effort Abdomen: soft, no tenderness, nondistended, no rebound or guarding, (+) reducible, soft umbilical hernia with overlying skin with sutures intact, however serous fluid leaking; ostomy appliance overlying Extremities: no edema Skin: warm, dry, +jaundice Neuro: alert, oriented to person, place, and time Psych: normal mood and affect, judgement normal LABS: Labs reviewed as indicated below: CHEMISTRY: BUN, Creatinine, GFR Estimated, Sodium, Potassium, Chloride, Carbon Dioxide, Glucose, Calcium (see below for most recent value): Lab Results Component Value Date/Time BUN 14 12/06/2024 12:36 AM BUN 14 11/24/2020 08:53 AM CREAT 1.1 12/06/2024 12:36 AM CREAT 0.87 11/19/2024 12:00 AM CREAT 0.9 11/24/2020 08:53 AM GFRESTIMATED >60.0 11/24/2020 08:53 AM NA 129 (L) 12/06/2024 12:36 AM NA 142 11/24/2020 08:53 AM POTASSIUM 4.3 12/06/2024 12:36 AM POTASSIUM 2.6 (A) 11/19/2024 12:00 AM POTASSIUM 3.7 11/24/2020 08:53 AM CL 96 (L) 12/06/2024 12:36 AM CL 110 (H) 11/24/2020 08:53 AM CO2 21 (L) 12/06/2024 12:36 AM CO2 23 11/24/2020 08:53 AM CA 8.2 (L) 12/06/2024 12:36 AM CA 8.6 11/24/2020 08:53 AM COAGS: PT, INR (see below for three most recent values): Lab Results Component Value Date/Time INR 2.0 (H) 12/06/2024 06:53 AM INR 2.0 (H) 12/06/2024 12:36 AM INR 1.7 (H) 10/18/2024 10:51 AM BLOOD COUNT: WBC, Hgb, Platelets (see below for most recent value): Lab Results Component Value Date/Time WBC 6.51 12/06/2024 12:36 AM WBC 3.72 (L) 05/21/2020 10:26 AM HGB 8.4 (L) 12/06/2024 12:36 AM HGB 9.0 (A) 11/06/2024 12:00 AM HGB 11.3 (L) 05/21/2020 10:26 AM PLT 80 (L) 12/06/2024 12:36 AM PLT 84 (L) 05/21/2020 10:26 AM LIVER FUNCTION TEST: Albumin, AST, ASTCMC (resulted at [facility] lab), Alkaline Phosphatase, ALT, ALTCMC (resulted at [facility] lab), Bilirubin Total, TBilCMC (resulted at [facility] lab), Protein - (see below for most recent value of each component): Lab Results Component Value Date/Time AST 59 (H) 12/06/2024 12:36 AM ALKP 99 12/06/2024 12:36 AM ALT 27 12/06/2024 12:36 AM ALT 59 (H) 05/06/2003 08:20 AM TBIL 4.1 (H) 12/06/2024 12:36 AM PROT 5.6 (L) 12/06/2024 12:36 AM IMAGING: Outside imaging not currently available IMPRESSION: 59 y/o male with decompensated cirrhosis and umbilical hernia with open wound causing leaking of ascites. MELD Score today 25 PLAN: Patient is not a candidate for umbilical hernia repair Agree with GI evaluation Pt may be a candidate for TIPS - recommend evaluation Skin can be sutured again however likely to leak. Ultimately needs control of his ascites as umbilical wound will never heal with current drainage. Will follow along REFERRING PHYSICIAN: 1. Karsten Delgado MD PRIMARY CARE PHYSICIAN: Krystian Palomo MD documented in this encounter Nursing Notes * Alize Hunter LPN - 12/07/2024 12:28 PM EST 1200: Order to discharge placed at this time. PIV removed. Pt dressing self at this time and familyto be transporting home. 1317: Discharge paperwork given and explained to patient, all questions and concerns answered at this time. Pt exited facility via wheelchair. * Betina Harrison LPN - 12/06/2024 4:26 PM EST 0755: Assessment completed, see flow sheets for details. Patient A/Ox4, denies pain or SOB at this time. Patient has mid abdomen drainage collection bag, output is clear yellow. Patient remains NPO for procedure. 1030: Patient to OR for IR procedure. 1616: tiger text sent to provider for care plan update. * Sharita Fermin RN - 12/06/2024 11:49 AM EST Procedure cancelled after ultrasound evaluation by Dr. Ibarra. * Lucía Graff RN - 12/05/2024 11:07 PM EST VIRTUAL RN [facility]-[address] [address] Name: Lloyd Spencer Location: [facility] [id number] Date: 12/05/2024 Time: 11:07 PM I completed the Admission Navigator. The patient was in the hospital. I was not in a hospital or clinic location. After connecting through [employer], the patient was identified by name and date of and / or wristband checked. Patient (or authorized legal telemarketing representative) was then informed that this was a Virtual Nurse visit and was being conducted confidentially over secure lines. I used a headset and other methods to ensure confidentiality for the patient. My office door was closed. No oneelse was in the room with me. Patient acknowledged consent and understanding of privacy and security of the Virtual Nurse visit. I presented the opportunity for the patient or authorized legal telemarketing representative to ask any questions regarding the visit today. The patient or authorized legal telemarketing representative agreed to participate. * Delmy Phillips RN - 12/05/2024 10:49 PM EST Dual Licensed Skin Assessment completed by Jonathan Phillips RN and Damion Dick RN. The patient is/has a N/A Skin Breakdown (includes non blanchable erythema): Yes. Wound Type: Other, location abdomen on umbilical hernia Wound Ostomy Nurse Notified: No - wound ostomy not needed at this time Nursing interventions: Pinhole area noted to umbilical hernia area to mid abdomen. Currently leaking clear yellow drainage into a urostomy bag d/t excess ascites that are providing pressure to open wound causing difficulty healing. 1 intact stitch noted under "pinhole" area. documented in this encounter Miscellaneous Notes * Pt Handout (on AVS) - Marybeth Varela RN - 12/07/2024 11:53 AM EST Images from the original note were not included. [id number] Ascites Ascites is when fluid collects in the belly area (abdomen). Symptoms include swelling of the abdomen and a feeling of pressure. You may also have shortness of breath. In severe cases, your feet, ankles, and legs may also swell. There are many causes of ascites. They include: Cirrhosis of the liver. This is a type of damage to the liver. It is the most common cause of ascites. It may be from the hepatitis B or hepatitis C virus. It may also be from long-term alcohol abuse or from nonalcoholic steatohepatitis. Other diseases. These include heart failure, kidney failure, pancreatitis, or cancer. To treat the condition, you may need to be on a low-salt diet. Your healthcare provider may prescribe medicines that help fluid leave your body. These medicines are called diuretics. In some cases, you may need a procedure to drain fluid from your abdomen. This is called paracentesis. If the cause of your ascites is not treated, the fluid is likely to return. If the fluid becomes infected, you will need to take antibiotics. If you have liver damage due to alcohol, stopping all alcohol will help slow the progress of the disease. If you have liver damage from hepatitis B or C, you may have treatments to fight the virus. If you have liver damage that is life- threatening, you may need a liver transplant. How to say it -SI-tee Home care Some medicines can make liver damage worse. Talk to your healthcare provider or pharmacist aboutall medicines you take. Ask them before taking any new medicines. Ask them before you take any herbs, vitamins, or minerals. Some of these may affect the liver. Talk with your healthcare provider before you take acetaminophen or ibuprofen. Both of these medicines can affect your liver. Stop all alcohol use. If you have a problem with alcohol, talk with your healthcare provider about getting help and support to stop. If you use IV (intravenous) drugs, get help to stop. Never share needles or other drug items. If you have cirrhosis from diabetes, obesity, or metabolic syndrome linked to AGUILAR, you need to get treatment for these. You will also need to exercise and lose weight. Follow a low-sodium diet. Take medicines as directed. Follow-up care Follow up with your healthcare provider as advised. Call as directed for results if a culture was done on the fluid, or if you had imaging tests or other tests. Your treatment may change based on theresults of these tests. These resources can tell you more and help you find support: [employer] at www.liverfoundation.org or 442-479-5031 Alcoholics Anonymous at www.aa.org to find an A.A. group near you When to get medical care Call your healthcare provider right away if any of these occur: Sudden weight gain with increased size of your belly or leg swelling Increasing jaundice (yellowing of skin or eyes) Excess bleeding from cuts or injuries Blood in vomit or stool (black or red color) Trouble breathing Increasing belly pain Confusion Fever of 100.4F (38C) or higher, or as advised by your provider Gina Last Reviewed Date: 2022 00:00:00 [id number] [employer]. All rights reserved. This information is not intended as a substitute for professional medical care. Always follow your healthcare professional's instructions. * Pt Handout (on AVS) - Marybeth Varela RN - 12/07/2024 11:53 AM EST [id number] Treating Cirrhosis Cirrhosis is a condition where the liver is damaged. Scar tissue slowly replaces healthy tissue. This makes the liver stop working correctly. Treatment can sometimes slow or even stop liver scarring.Over time the liver is able to regrow (regenerate) itself. Follow your doctor?s instructions closely to get the most out of your treatment. And ask your family and friends for support. Making a treatment plan You and your doctor will decide on a treatment plan that?s best for you. The plan may include 1 or more of these: Not drinking alcohol. Heavy alcohol use can damage the liver. Once the liver is damaged, even a small amount of alcohol can cause problems. You can prevent more liver damage if you stop all alcohol use. Taking medicines. You may need to take these to treat some causes of cirrhosis. These include infection or a bile duct blockage. For instance, hepatitis C can now be cured with medicine. And you may need medicine if your immune system is attacking the liver or bile ducts. Talk to your doctor before taking common pain medicines if you have cirrhosis. These include acetaminophen. And they include nonsteroidal anti-inflammatory drugs, such as ibuprofen and naproxen. Treating symptoms. Cirrhosis can cause swelling in your stomach and legs. A low-salt diet can help ease this symptom. Stay under about 2,000 mg of sodium a day. Water pills (diuretics) may also beprescribed to help with swelling. Cirrhosis can also cause mental confusion. Medicines are used to treat this. Eating healthy foods. Losing extra weight. This is even more important if your cirrhosis is from metabolic dysfunction-associated steatotic liver disease (MASLD) or metabolic dysfunction-associated steatohepatitis (MASH). Cirrhosis from MASLD or MASH is linked to excess weight or obesity. If you have MASLD, weight loss and exercise can slow down liver damage. Removing iron from your blood. This may be done if your cirrhosis is caused by hemochromatosis. This condition occurs when too much iron builds up in the body. Your doctor may remove extra iron from your blood. Severe cases of cirrhosis may need special treatments. Your doctor can discuss them with you. Vaccines Be sure to ask your doctor about advised vaccines. These include vaccines for viruses than can cause liver disease, such as hepatitis A and B. Don't drink alcohol Alcohol use can destroy liver cells. If you have problems quitting alcohol, ask your doctor for help with getting the support you need. They may be able to suggest treatment centers or local groups that can help you stop drinking. Last Reviewed Date: 2023 00:00:00 [id number] [employer]. All rights reserved. This information is not intended as a substitute for professional medical care. Always follow your healthcare professional's instructions. * Pt Handout (on AVS) - Marybeth Varela RN - 12/07/2024 11:53 AM EST Images from the original note were not included. [id number] Understanding Cirrhosis Cirrhosis is a lifelong (chronic) liver problem. It results from damaged and scarred liver tissue. Cirrhosis can?t be cured. But it can be treated. The liver The liver is a large organ in the upper right part of the belly. A healthy liver breaks down proteins, carbohydrates, and fats. It makes a digestive fluid called bile. It also takes toxins out of theblood. The liver is part of the blood- clotting process. Causes of cirrhosis The causes of cirrhosis may include: Alcohol use. Viral liver infections, such as hepatitis B and C. Chronic bile duct blockage. Some inherited diseases that cause too much copper or iron to be stored in the liver. Some medicines. Autoimmune disease. Another cause is metabolic dysfunction-associated steatotic liver disease. This is very common. It often happens in people who have other risk factors linked to extra weight or obesity. These include: Diabetes. High blood pressure. High cholesterol or triglycerides. Other metabolic problems. Common signs and symptoms Common symptoms of cirrhosis include: Severe tiredness (fatigue). Weakness. Low appetite. Upset stomach (nausea) and vomiting. Weight loss or weight gain. Yellowish skin and eyes (jaundice). Severe itching. Swollen belly and legs. Mild pain in the right upper side of your belly. Intestinal bleeding. Easy skin bruising and bleeding. Enlarged (dilated) veins in the esophagus and stomach. This can lead to serious GI bleeding. Poor mental function. Spider-like blood vessels. When you have cirrhosis When you have cirrhosis, your liver gets damaged and scarred. It doesn?t work as it should. In somecases, cirrhosis can lead to liver failure. If it does, you may need a liver transplant. Cirrhosis puts you at higher risk for liver cancer. Other tests are needed to look for problems from cirrhosisand check for liver cancer. Keep all follow-up appointments with your doctor. You can slow down cirrhosis and prevent more liver damage if you stop all alcohol use. Here are other changes you can make: Lose extra weight. Control blood sugar if you have diabetes. Don't eat raw or uncooked shellfish, fish, meat, and unpasteurized dairy products. Limit salt in food and drinks. Talk with a dietitian for meal planning (due to risk of malnutrition). Talk with your doctor about all the medicines, vitamins, and supplements you take. Ask your doctor if hepatitis A and B vaccines are right for you. Last Reviewed Date: 2023 00:00:00 [id number] [employer]. All rights reserved. This information is not intended as a substitute for professional medical care. Always follow your healthcare professional's instructions. * Pt Handout (on AVS) - Marybeth Varela RN - 12/07/2024 11:53 AM EST [id number] Discharge Instructions for Liver Cirrhosis You have been diagnosed with cirrhosis of the liver. This is a long-term (chronic) problem. It occurs when liver tissue is destroyed and replaced by scar tissue. Causes of cirrhosis include: Infection such as viral hepatitis Chronic alcoholism The body?s immune system attacks healthy cells (autoimmune disorders) Obesity, diabetes, high blood pressure, and high cholesterol Medicine side effects Genetic diseases Sometimes the exact cause is unknown. You may not have any symptoms at first. Or your symptoms may be mild. But they usually get worse. Cirrhosis is likely to occur if you have a history of long-termalcohol abuse. Cirrhosis can?t be cured. But it can be treated and sometimes can improve. Home care Alcohol People with cirrhosis should not drink alcohol. If you stop drinking, you may feel better and live longer. Even if cirrhosis is not from alcohol, alcohol may cause the liver disease to get worse. If you are a chronic alcohol user, you will have withdrawal symptoms. Talk with your healthcare provider for more information. If alcohol is a problem, ask your provider about medicine that can help you quit drinking. Find a local Alcoholics Anonymous support group online at www.aa.org/. Diet Ask your provider what kind of diet you should follow. You may be asked to limit or not eat certain foods. Don't limit your protein intake. Weigh yourself daily and keep a weight log. If you have a sudden change in weight, call your provider. Cut back on salt: o Limit canned, dried, packaged, and fast foods. o Don?t add salt to your food at the table. o Season foods with herbs instead of salt when you cook. Medicines, supplements, and vaccines Take your medicines exactly as directed. Talk with your provider before taking vitamins, [id number] medicines, or herbal supplements. Some herbal supplements may be toxic to the liver. Painkillers called NSAIDs (nonsteroidal anti-inflammatory drugs), such as ibuprofen, can harm the liver if you have cirrhosis. Don't take aspirin or other blood-thinning medicines unless directed by your provider. Discuss vitamin supplements and deficiencies with your provider. Ask your provider about getting vaccines for viruses that can cause liver diseases. Follow-up care Follow up with your healthcare provider, or as advised. You will likely have the following tests: Lab tests Blood tests for liver cancer Ultrasound or MRI of your liver every 6 months Endoscopy to check for swollen veins (varices) in your digestive tract Other tests and medicines are needed if the cirrhosis worsens. When to call your provider Call your healthcare provider right away if you have any of the following: Fever of 100.4F ( 38.0C) or higher, or as directed by your provider Extreme tiredness (fatigue), weakness, or lack of appetite Vomiting (with or without blood) Yellowing of your skin or eyes (jaundice) Itching Swelling in your belly or legs Black or tarry stools Skin that bruises easily Confusion or trouble thinking clearly Last Reviewed Date: 2021 00:00:00 [id number] [employer]. All rights reserved. This information is not intended as a substitute for professional medical care. Always follow your healthcare professional's instructions. documented in this encounter Plan of Treatment Upcoming Encounters Date Type Department Care Team (Late st Contact Info) Description 12/26/2024 9:00 AM EST Office Visit Pharmacy, [address] [place] [address] [place] [address] 03/20/2025 10:30 AM EDT Office Visit Cardiology, [facility] [address] [place] [address] Chino Carrillo PA-C [address] [place] [address] 03/31/2025 4:00 PM EDT Office Visit Nephrology, [facility] [address] [facility] [place] [address] Fernando Reina MD [address] [place] [address] 04/18/2025 10:30 AM EDT Office Visit Gastroenterology, [facility] [address] [place] [address] Ren Pineda CRNP [address] [place] [address] 06/02/2025 10:00 AM EDT Office Visit Family Medicine [address] [place] [phone] Krystian Palomo MD [address] [place] [address] [place] [address] 09/11/2025 2:00 PM EST Imaging Radiology [address] [place] [address] Scheduled Orders Name Type Priority Associated Diagnoses Orde r Schedule IR CHEST PLEUR X CATHETER Medical Imaging Routine One Time for 1 Occurrences starting 12/06/2024 until 12/06/2024 ECHO, COMPLETE (2D), TRANS-THORACIC Echocardiology Routine Pre-op evaluation One Time for 1 Occurrences starting 12/06/2024 until 12/06/2024 Scheduled Procedures Name Priority Associated Diagnoses Date/Ti [...] this encounter Medical Devices Implanted Type Area [employer] Managing [employer] Device Identifier Shelf Expiration Date Model / Serial / Lot Lipiodol Injection - [id number] Implanted:Qty: 1 on 08/02/2023 at [facility] [employer] 04/28/2026 [id number] Syr Pf 2ml Embospheres 100-300 - [id number] Implanted:Qty: [facility] [id number]/26/2026 [id number] / / [id number] Syr Pf 2ml Embospheres 100-300 - [id number] Implanted:Qty: 1 on 04/11/2024 at [facility] [employer] [id number] 12/27/2026 [id number] / / [id number] Lipiodol Injection - [id number] Implanted:Qty: 1 on 04/11/2024 at [facility] [employer] [id number] documented as of this encounter Procedures Procedure Name Priority Date/Time Associated Diagnosis Comments GLUCOSE METER, POINT OF CARE [place] 12/07/2024 6:17 AM EST GLUCOSE METER, POINT OF CARE [place] 12/07/2024 12:10 AM EST GLUCOSE METER, POINT OF CARE [place] 12/06/2024 5:21 PM EST GLUCOSE METER, POINT OF CARE [facility] 12/06/2024 12:09 PM EST IR INTERVENTIONAL RADIOLOGY PROCEDURE IN OR Routine 12/06/2024 11:36 AM EST HEMOGLOBIN A1C Routine 12/06/2024 6:53 AM EST PT INR Routine 12/06/2024 6:53 AM EST PHOSPHORUS Routine 12/06/2024 6:53 AM EST MAGNESIUM Routine 12/06/2024 6:53 AM EST GLUCOSE METER, POINT OF CARE [facility] 12/06/2024 6:22 AM EST COMPREHENSIVE METABOLIC PANEL Routine 12/06/2024 12:36 AM EST PT INR Routine 12/06/2024 12:36 AM EST CBC Routine 12/06/2024 12:36 AM EST GLUCOSE METER, POINT OF CARE [facility] 12/05/2024 11:37 PM EST documented in this encounter Results * (ABNORMAL) GLUCOSE METER, POINT OF CARE (12/07/2024 6:17 AM EST) Glucose - POCT 127(H) 70 - 120 mg/dL 12/07/2024 6:21 AM EST [facility] Blood Whole blood specimen / Unknown 12/07/2024 6:17 AM EST 12/07/2024 6:21 AM EST us Deandre Moses MD LAB POINT OF CARE T EST DOCKED DEVICE UNSOLICITED RESULTS Final Result Performing Organization Address [facility] Co de Phone Number [facility] [address] [place] [address] * GLUCOSE METER, POINT OF CARE (12/07/2024 12:10 AM EST) Glucose - POCT 118 70 - 120 mg/dL 12/07/2024 12:13 AM EST [facility] Blood Whole blood specimen / Unknown 12/07/2024 12:10 AM EST 12/07/2024 12:13 AM EST us Deandre Moses MD LAB POINT OF CARE T EST DOCKED DEVICE UNSOLICITED RESULTS Final Result Performing Organization Address [facility] de Phone Number [facility] [address] [place] [address] * (ABNORMAL) GLUCOSE METER, POINT OF CARE (12/06/2024 5:21 PM EST) Glucose - POCT 312(H) 70 - 120 mg/dL 12/06/2024 5:24 PM EST [facility] Blood Whole blood specimen / Unknown 12/06/2024 5:21 PM EST 12/06/2024 5:24 PM EST us Deandre Moses MD LAB POINT OF CARE T EST DOCKED DEVICE UNSOLICITED RESULTS Final Result Performing Organization Address [facility] Co de Phone Number [facility] [address] [place] [address] * (ABNORMAL) GLUCOSE METER, POINT OF CARE (12/06/2024 12:09 PM EST) Glucose - POCT 137(H) 70 - 120 mg/dL 12/06/2024 12:20 PM EST [facility] Blood Whole blood specimen / Unknown 12/06/2024 12:09 PM EST 12/06/2024 12:20 PM EST us Deandre Moses MD LAB POINT OF CARE T EST DOCKED DEVICE UNSOLICITED RESULTS Final Result [facility] [address] [place], [place] [address] * IR INTERVENTIONAL RADIOLOGY PROCEDURE IN OR (12/06/2024 11:36 AM EST) 12/06/2024 2:35 PM EST Impressions [facility] - 12/06/2024 2:33 PM EST IMPRESSION: Planned PleurX catheter placement canceled Narrative [facility] - 12/06/2024 2:33 PM EST PROCEDURE: Limited abdominal ultrasound INDICATION: PleurX catheter placement, abdominal ATTENDING (OPERATING PHYSICIAN): Stacey CONSENT: After a detailed discussion of the procedure, risks, benefits and alternative treatment options, informed consent was obtained. Limited ultrasound irrigation demonstrates no ascites to allow safe placement of a PleurX catheter within the abdomen. I personally performed the procedure. FINDINGS: No ascites Procedure Note Fernando Ibarra MD - 12/06/2024 PROCEDURE: Limited abdominal ultrasound INDICATION: PleurX catheter placement, abdominal ATTENDING (OPERATING PHYSICIAN): Stacey CONSENT: After a detailed discussion of the procedure, risks, benefits andalternative treatment options, informed consent was obtained. Limited ultrasound irrigation demonstrates no ascites to allow safeplacement of a PleurX catheter within the abdomen. I personally performed the procedure. FINDINGS: No ascites IMPRESSION IMPRESSION: Planned PleurX catheter placement canceled Fernando Ibarra MD RAD SPECIAL PROCEDURES Final Res ult [facility] * HEMOGLOBIN A1C (12/06/2024 6:53 AM EST) Hemoglobin A1C 5.2 4.0 - 5.6 % 12/06/2024 4:30 PM EST [facility] Comment:The use of HbA1c to monitor glycemic status is based on normal hemoglobin and HbA composition. This test should not be used in patients with abnormal hemoglobin that affects the half life of the red blood cell or the in vivo glycation rates. Estimated Average Glucose 103 <126 mg/dL 12/06/2024 4:30 PM EST [facility] Blood Venous blood specimen / Unknown Venipuncture / Unknown 12/06/2024 6:53 AM EST 12/06/2024 7:01 AM EST us Brian Ibarra MD LAB BLOOD ORDERABLES Final Result Performing Organization Address City/[facility]/ZIP Co de Phone Number [facility] [address] [place] [address] * PHOSPHORUS (12/06/2024 6:53 AM EST) Phosphorus 2.9 2.5 - 4.8 mg/dL 12/06/2024 7:35 AM EST LAB[facility]ATORY [facility] Blood Venous blood specimen / Unknown Venipuncture / Unknown 12/06/2024 6:53 AM EST 12/06/2024 7:01 AM EST us Brian Ibarra MD LAB BLOOD ORDERABLES Final Result Performing Organization Address City/[facility] Co de Phone Number LABORATORY [address] [phone] * MAGNESIUM (12/06/2024 6:53 AM EST) Magnesium 1.9 1.5 - 2.6 mg/dL 12/06/2024 7:35 AM EST LABORATORY [facility] Blood Venous blood specimen / Unknown Venipuncture / Unknown 12/06/2024 6:53 AM EST 12/06/2024 7:01 AM EST us Brian Ibarra MD LAB BLOOD ORDERABLES Final Result Performing Organization Address [facility] de Phone Number LABORATORY [address] [phone] * (ABNORMAL) PT INR (12/06/2024 6:53 AM EST) Prothrombin Time 22.5(H) 11.6 - 15.2 seconds 12/06/2024 7:50 AM EST LABORATORY [facility] INR 2.0(H) 0.8 - 1.2 12/06/2024 7:50 AM EST LABORATORY [facility] Blood Venous blood specimen / Unknown Venipuncture / Unknown 12/06/2024 6:53 AM EST 12/06/2024 7:01 AM EST Narrative LABORATORY [facility] - 12/06/2024 7:50 AM EST Warfarin Therapy INR: 2.0-3.0 conventional anticoagulation INR: 2.5-3.5 high intensity anticoagulation us Brian Ibarra MD LAB BLOOD ORDERABLES Final Result Performing Organization Address City/[facility]/ZIP Co de Phone Number LABORATORY [address] [address] * (ABNORMAL) GLUCOSE METER, POINT OF CARE (12/06/2024 6:22 AM EST) Pathologist [facility] Glucose - POCT 153(H) 70 - 120 mg/dL 12/06/2024 8:19 AM EST [facility] Blood Whole blood specimen / Unknown 12/06/2024 6:22 AM EST 12/06/2024 8:19 AM EST us Deandre Moses MD LAB POINT OF CARE T EST DOCKED DEVICE UNSOLICITED RESULTS Final Result Performing Organization Address City/[facility] Co de Phone Number [facility] [address] [place] [phone] * (ABNORMAL) PT INR (12/06/2024 12:36 AM EST) Prothrombin Time 23.2(H) 11.6 - 15.2 seconds 12/06/2024 1:25 AM EST LABORATORY [facility] INR 2.0(H) 0.8 - 1.2 12/06/2024 1:25 AM EST LABORATORY [facility] Blood Venous blood specimen / Unknown Venipuncture / Unknown 12/06/2024 12:36 AM EST 12/06/2024 1:00 AM EST Narrative LABORATORY [facility] - 12/06/2024 1:25 AM EST Warfarin Therapy INR: 2.0-3.0 conventional anticoagulation INR: 2.5-3.5 high intensity anticoagulation us Brian Ibarra MD LAB BLOOD ORDERABLES Final Result LABORATORY [address] [address] * (ABNORMAL) CBC (12/06/2024 12:36 AM EST) WBC 6.51 4.00 - 10.80 K/uL 12/06/2024 1:17 AM EST LABORATORY GL RBC 2.42 4.50 - 5.25 M/uL 12/06/2024 1:17 AM EST LABORATORY GL HGB 8.4(L) 14.0 - 16.8 g/dL 12/06/2024 1:17 AM EST LABORATORY GL HCT 25.5(L) 40.0 - 48.4 % 12/06/2024 1:17 AM EST LABORATORY GL MCV 105.4 82.0 - 99.5 fL 12/06/2024 1:17 AM EST LABORATORY GL MCH 34.7 27.0 - 34.0 pg 12/06/2024 1:17 AM EST LABORATORY GL MCHC 32.9 32.0 - 36.0 g/dL 12/06/2024 1:17 AM EST LABORATORY GL RDW 20.1 11.5 - 15.5 % 12/06/2024 1:17 AM EST LABORATORY GL PLT 80(L) 140 - 400 K/uL 12/06/2024 1:17 AM EST LABORATORY GL Comment: Results rechecked. MPV 10.8 6.6 - 11.1 fL 12/06/2024 1:17 AM EST LABORATORY GL nRBCs 0 <=0 /100 WBCs 12/06/2024 1:17 AM EST LABORATORY GL Blood Venous blood specimen / Unknown Venipuncture / Unknown 12/06/2024 12:36 AM EST 12/06/2024 1:00 AM EST us Brian Ibarra MD LAB BLOOD ORDERABLES Final Result LABORATORY [address] [address] * (ABNORMAL) COMPREHENSIVE METABOLIC PANEL (12/06/2024 12:36 AM EST) BUN 14 6 - 20 mg/dL 12/06/2024 1:22 AM EST LABORATORY GL CREATININE 1.1 0.6 - 1.2 mg/dL 12/06/2024 1:22 AM EST LABORATORY [facility] EGFR 79 >=60 mL/min 12/06/2024 1:22 AM EST LABORATORY [facility] Comment:eGFR is calculated b ased on the CKD-EPI 2020 equation. SODIUM 129(L) 135 - 146 mmol/L 12/06/2024 1:22 AM EST LABORATORY [facility] POTASSIUM 4.3 3.5 - 5.1 mmol/L 12/06/2024 1:22 AM EST LABORATORY [facility] CHLORIDE 96(L) 98 - 107 mmol/L 12/06/2024 1:22 AM EST LABORATORY [facility] CO2 21(L) 22 - 32 mmol/L 12/06/2024 1:22 AM EST LABORATORY [facility] ANION GAP 12 7 - 15 mmol/L 12/06/2024 1:22 AM EST LABORATORY [facility] GLUCOSE 175(H) 70 - 120 mg/dL 12/06/2024 1:22 AM EST LABORATORY [facility] Albumin 2.7(L) 3.8 - 5.0 g/dL 12/06/2024 1:22 AM EST LABORATORY [facility] AST 59(H) 10 - 50 U/L 12/06/2024 1:22 AM EST LABORATORY [facility] Alkaline Phosphatase 99 35 - 130 U/L 12/06/2024 1:22 AM EST LABORATORY [facility] Bilirubin, Total 4.1(H) <=1.2 mg/dL 12/06/2024 1:22 AM EST LABORATORY [facility] CALCIUM 8.2(L) 8.4 - 10.2 mg/dL 12/06/2024 1:22 AM EST LABORATORY [facility] Protein 5.6(L) 6.0 - 8.3 g/dL 12/06/2024 1:22 AM EST LABORATORY [facility] ALT 27 10 - 50 U/L 12/06/2024 1:22 AM EST LABORATORY [facility] Blood Venous blood specimen / Unknown Venipuncture / Unknown 12/06/2024 12:36 AM EST 12/06/2024 1:00 AM EST us Brian Ibarra MD LAB BLOOD ORDERABLES Final Result LABORATORY [address] [address] * GLUCOSE METER, POINT OF CARE (12/05/2024 11:37 PM EST) [facility] Glucose - POCT 114 70 - 120 mg/dL 12/05/2024 11:41 PM EST [facility] Blood Whole blood specimen / Unknown 12/05/2024 11:37 PM EST 12/05/2024 11:41 PM EST us Deandre Moses MD LAB POINT OF CARE T EST DOCKED DEVICE UNSOLICITED RESULTS Final Result Performing Organization Address City/[facility] de Phone Number [facility] [address] [place] [phone] documented in this encounter Visit Diagnoses Diagnosis Draining cutaneous sinus tract- Primary Unspecified local infection of skin and subcutaneous tissue Cirrhosis of liver with ascites (HCC) Chest pain Chest pain, unspecified Pre-op evaluation Preoperative examination, unspecified 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 BPH without obstruction/lower urinary tract symptoms Hypertrophy of prostate without urinary obstruction and other lower urinary tract symptoms (LUTS) Chronic hyponatremia Hyposmolality and/or hyponatremia Ascites Other ascites Type 2 diabetes mellitus with hemoglobin A1c goal of less than 7.0% (HCC) Umbilical hernia Umbilical hernia without mention of obstruction or gangrene Malnutrition of moderate degree (HCC) Malnutrition of moderate degree documented in this encounter Administered Medications Inactive Administered Medications - up to 3 most recent administrations Medication Order MAR Action Action Date Dose Rate Site Allopurinol (Zyloprim) tab 300 mg 300 mg, Oral, Daily(AM), First dose on Mon12/06/24 at 0900, Until Discontinued Given 12/07/2024 9:07 AM EST 300 mg atorvaSTATin (Lipitor) tab 20 mg 20 mg, Oral, Daily(AM), First dose on Mon12/06/24 at 0900, Until Discontinued Given 12/07/2024 9:07 AM EST 20 mg capsaicin 0.1% cream Topical, BID PRN Other, Cramping, Starting on Mon12/06/24 at 2015, Until 12/07/24 at 1718, Apply to lower extremities as needed for cramping Given 12/06/2024 9:38 PM EST dextrose 50% inj 25 mL 25 mL, IV Push, PRN Hypoglycemia, Other, For blood glucose 54 - 69 mg/dL or 70 - 100 mg/dL with symptoms AND patient is unresponsive, NPO, OR unable to swallow, Starting on Kayleigh 12/05/24 at 2328, Until 12/07/24 at 1718, Administer IV. Recheck blood glucose after 15 minutes. Notify provider. dextrose 50% inj 50 mL 50 mL, IV Push, PRN Hypoglycemia, Other, For blood glucose below 54 mg/dL AND patient unresponsive, NPO, OR unable to swallow, Starting on Kayleigh 12/05/24 at 2328, Until 12/07/24 at 1718, Administer IV. Recheck blood glucose in 15 minutes. Notify provider. Docusate Sodium (Colace) cap 100 mg 100 mg, Oral, BID (.AM/PM), First dose on Mon12/06/24 at 0900, Until Discontinued, For oral administration ONLY, if route of administration is other than oral and alternative product must be ordered. Given 12/07/2024 9:06 AM EST 100 mg Given 12/06/2024 9:38 PM EST 100 mg glucagon (Glucagen) inj 1 mg 1 mg, Intramuscular, PRN Hypoglycemia, Other, If patient is unresponsive, or NPO and has no IV access, Starting on Kayleigh 12/05/24 at 2328, Until 12/07/24 at 1718, NPO and no IV access with either 1) blood glucose less than 100 mg/dL and symptomatic OR 2) blood glucose less than 70 mg/dL and asymptomatic Glucose (Glutose 15) 40 % gel 15 g of glucose 15 g of glucose, Oral, PRN Hypoglycemia (low sugar), Other, For blood glucose 54 - 69 mg/dL or 70 - 100 mg/dL with symptoms AND patient alert WITH difficulty chewing/swallowing, Starting on Kayleigh 12/05/24 at 2328, Until 12/07/24 at 1718, Administer gel. Recheck blood glucose after 15 minutes. Notify provider. 37.5 gram tube = 15 grams glucose = 1 each Glucose (Glutose 15) 40 % gel 30 g of glucose 30 g of glucose, Oral, PRN Hypoglycemia (low sugar), Other, For blood glucose below 54 mg/dL AND patient alert WITH difficulty chewing/swallowing, Starting on Kayleigh 12/05/24 at 2328, Until 12/07/24 at 1718, Administer gel. Recheck blood glucose after 15 minutes. Notify provider. 37.5 gram tube = 15 grams glucose = 1 each glucose chew tab 16 g 16 g, Oral, PRN Hypoglycemia, Other, For blood glucose 54 - 69 mg/dL or 70 - 100 mg/dL with symptoms and patient alert without difficulty chewing/swallowing., Starting on Kayleigh 12/05/24 at 2328, Until 12/07/24 at 1718 insulin aspart (NovoLOG) inj Subcutaneous, Q6H, First dose on Mon12/06/24 at 0000, Until Discontinued, MEDIUM DOSE (Usual starting dose): Sliding Scale Correctional insulin may be given if the patient is NPO. Dose based on standard build from Insulin Calculator. Do not modify insulin doses in administration instructions!, Glucose less than 70 instructions: Obtain STAT lab blood glucose and call covering provider., Glucose 80-150 (units): 0, Glucose 151-200 (units): 2, Glucose 201-250 (units): 4, Glucose 251-300 (units): 6, Glucose greater than 300 (units): 8, Glucose greater than 300 instructions: Give suggested insulin dose and call covering provider. Given 12/06/2024 6:16 PM EST 8 Units Arm Left Upper Isolyte-S pH 7.4 infusion Intravenous, at 10 mL/hr, Plasma-LYTE 148, isolyte-S, and isolyte-S pH 7.4 are considered equivalent - including for MAR barcode scanning., CONTINUOUS, Starting on Mon12/06/24 at 1145, Until Mon12/06/24 at 1154 New Bag 12/06/2024 11:14 AM EST 10 mL/hr Magnesium L-Lactate SR (Mag-Tab SR) tab 84 mg 84 mg, Oral, Daily(AM), First dose on Mon12/06/24 at 0900, Until Discontinued Given 12/07/2024 9:06 AM EST 84 mg midodrine HCl (Proamatine) tab 7.5 mg 7.5 mg, Oral, TID 06;12;18, First dose on Mon12/06/24 at 0600, Until Discontinued, Indications: at [facility] d/c 07.06.24Indications:at [facility] d/c 07.06.24 Given 12/07/2024 5:53 AM EST 7.5 mg Given 12/06/2024 6:16 PM EST 7.5 mg Given 12/06/2024 1:52 PM EST 7.5 mg omeprazole (PriLOSEC) cap 20 mg 20 mg, Oral, BEFORE BREAKFAST, First dose on Mon12/06/24 at 0745, Until Discontinued, This med should NOT be Crushed or Chewed Given 12/07/2024 5:53 AM EST 20 mg oxygen GAS Inhalation, OXYGEN, First dose on Mon12/06/24 at 0000, Until Discontinued, Device/Managed by: Low Flow Device, Goal SPO2 (%): 91-95, Starting Device: Nasal Cannula, Initial Flow Rate (LPM): 2, Lowest Support: Nasal Cannula: Flow 0-6 LPM. Titrate up/down by 1 LPM., Higher Support: Non-Rebreather (NRB) Mask: Minimum of 10 LPM. Titrate to maintain bag inflation., Titration Interval: Q2 minutes and as needed., Notify Provider: For sudden DECREASE in resting SPO2 to less than 85% and when escalating delivery device., Wean patient off Oxygen when the oxygen saturation is greater than or equal to 93% rifAXIMin (Xifaxan) tab 550 mg 550 mg, Oral, BID (.AM/PM), First dose on Mon12/06/24 at 0900, Until Discontinued Given 12/07/2024 9:07 AM EST 550 mg Given 12/06/2024 9:38 PM EST 550 mg sodium chloride 0.9 % flush/inj 3 mL 3 mL, IV Push, PRN Other, Line Patency, Starting on Kayleigh 12/05/24 at 2321, Until 12/07/24 at 1718, Do not flush if lock, PICC, or central line not in place, IV infusing or unable to flush sodium chloride tab 1 g 1 g, Oral, BID (.AM/PM), First dose on Mon12/06/24 at 0900, Until Discontinued Given 12/07/2024 9:07 AM EST 1 g Given 12/06/2024 9:38 PM EST 1 g tamsulosin (Flomax) cap 0.4 mg 0.4 mg, Oral, Daily(AM), First dose on Mon12/06/24 at 0900, Until Discontinued, Administer 30 min after meal. This med should NOT be Crushed or Chewed or opened! ORAL administration only!! Given 12/07/2024 9:07 AM EST 0.4 mg Vitamin C (Ascorbic Acid) tab 1,000 mg 1,000 mg, Oral, Daily(AM), First dose on Mon12/06/24 at 0900, Until Discontinued Given 12/07/2024 9:07 AM EST 1,000 mg documented in this encounter Active and Recently Administered Medications Times are shown in EST. Scheduled Medication Order 12/05/2024 12/06/2024 12/07/2024 Allopurinol (Zyloprim) tab 300 mg 300 mg, Oral, Daily(AM), First dose on Mon12/06/24 at 0900, Until Discontinued 09 (Not Given - Provider: Betina Harrison LPN - Reason: NPO) 09 (Given - Provider: Alize Hunter LPN) atorvaSTATin (Lipitor) tab 20 mg 20 mg, Oral, Daily(AM), First dose on Mon12/06/24 at 0900, Until Discontinued 0900 (Not Given - Provider: Betina Harrison LPN - Reason: NPO) 09 (Given - Provider: Alize Hunter LPN) Docusate Sodium (Colace) cap 100 mg 100 mg, Oral, BID (.AM/PM), First dose on Mon12/06/24 at 0900, Until Discontinued, For oral administration ONLY, if route of administration is other than oral and alternative product must be ordered. 0900 (Not Given - Provider: Betina Harrison LPN - Reason: NPO)8 (Given - Provider: Cathryn Lott RN) 09 (Given - Provider: Alize Hunter LPN) insulin aspart (NovoLOG) inj Subcutaneous, Q6H, First dose on Mon12/06/24 at 0000, Until Discontinued, MEDIUM DOSE (Usual starting dose): Sliding Scale Correctional insulin may be given if the patient is NPO. Dose based on standard build from Insulin Calculator. Do not modify insulin doses in administration instructions!, Glucose less than 70 instructions: Obtain STAT lab blood glucose and call covering provider., Glucose 80-150 (units): 0, Glucose 151-200 (units): 2, Glucose 201-250 (units): 4, Glucose 251-300 (units): 6, Glucose greater than 300 (units): 8, Glucose greater than 300 instructions: Give suggested insulin dose and call covering provider. 0000 (No Insulin - Provider: Delmy Phillips RN - Reason: Parameter(s) Not Met)0600 (Not Given - Provider: Delmy Phillips RN - Reason: NPO - Comment: did not administer d/t NPO status and low dose required insulin.)1215 (Not Given - Provider: Betina Harrison LPN - Reason: Parameter(s) Not Met)1816 (Given - Provider: Betina Harrison LPN) 0000 (Not Given - Provider: Cathryn Lott RN - Reason: Parameter(s) Not Met)0600 (Not Given - Provider: Cathryn Lott RN - Reason: Parameter(s) Not Met)1200 (Due) Lactulose (Constulose) oral soln 30 g 30 g, Oral, TID(AM/NOON/HS), First dose on 12/07/24 at 0600, Until Discontinued 0600 (Not Given - Provider: Cathryn Lott RN - Reason: Refused-Notify Provider - Comment: pt states he cannot take med without drinking a lot of juice with the medication and he is currently NPO)1200 (Due) lidocaine 1 % inj 100 mg 100 mg (10 mL), Percutaneous, ONCE, On 12/07/24 at 1015, For 1 dose 1015 (Not Given - Provider: Alize Hunter LPN - Reason: Other- Please add reason in Comments - Comment: Provider did not use.) Magnesium L-Lactate SR (Mag-Tab SR) tab 84 mg 84 mg, Oral, Daily(AM), First dose on Mon12/06/24 at 0900, Until Discontinued 0900 (Not Given - Provider: Betina Harrison LPN - Reason: NPO) 0906 (Given - Provider: Alize Hunter LPN) midodrine HCl (Proamatine) tab 7.5 mg 7.5 mg, Oral, TID 06;12;18, First dose on Mon12/06/24 at 0600, Until Discontinued, Indications: at hosp d/c .7. 0600 (Not Given - Provider: Delmy Phillips RN - Reason: NPO)1352 (Given - Provider: Betina Harrison LPN)1816 (Given - Provider: Betina Harrison LPN) 0553 (Given - Provider: Cathryn Lott RN)1200 (Due) omeprazole (PriLOSEC) cap 20 mg 20 mg, Oral, BEFORE BREAKFAST, First dose on Mon12/06/24 at 0745, Until Discontinued, This med should NOT be Crushed or Chewed 0745 (Not Given - Provider: Delmy Phillips RN - Reason: NPO) 0553 (Given - Provider: Cathryn Lott RN) oxygen GAS Inhalation, OXYGEN, First dose on Mon12/06/24 at 0000, Until Discontinued, Device/Managed by: Low Flow Device, Goal SPO2 (%): 91-95, Starting Device: Nasal Cannula, Initial Flow Rate (LPM): 2, Lowest Support: Nasal Cannula: Flow 0-6 LPM. Titrate up/down by 1 LPM., Higher Support: Non-Rebreather (NRB) Mask: Minimum of 10 LPM. Titrate to maintain bag inflation., Titration Interval: Q2 minutes and as needed., Notify Provider: For sudden DECREASE in resting SPO2 to less than 85% and when escalating delivery device., Wean patient off Oxygen when the oxygen saturation is greater than or equal to 93% 0000 (Oxygen Off - Provider: Delmy Phillips RN)0800 (Oxygen Off - Provider: Betina Harrison LPN)1555 (Oxygen Off - Provider: Betina Harrison LPN) 0000 (Oxygen Off - Provider: Cathryn Lott RN)0800 (Oxygen Off - Provider: Alize Hunter LPN) rifAXIMin (Xifaxan) tab 550 mg 550 mg, Oral, BID (.AM/PM), First dose on Mon12/06/24 at 0900, Until Discontinued 0900 (Not Given - Provider: Betina Harrison LPN - Reason: NPO)2138 (Given - Provider: Cathryn Lott RN) 906 (Given - Provider: Alize Hunter LPN) sodium chloride tab 1 g 1 g, Oral, BID (.AM/PM), First dose on Mon12/06/24 at 0900, Until Discontinued 899 (Not Given - Provider: Betina Harrison LPN - Reason: NPO)2137 (Given - Provider: Cathryn Lott RN) 906 (Given - Provider: Alize Hunter LPN) tamsulosin (Flomax) cap 0.4 mg 0.4 mg, Oral, Daily(AM), First dose on Mon12/06/24 at 0900, Until Discontinued, Administer 30 min after meal. This med should NOT be Crushed or Chewed or opened! ORAL administration only!! 899 (Not Given - Provider: Betina Harrison LPN - Reason: NPO) 906 (Given - Provider: Alize Hunter LPN) Vitamin C (Ascorbic Acid) tab 1,000 mg 1,000 mg, Oral, Daily(AM), First dose on Mon12/06/24 at 0900, Until Discontinued 899 (Not Given - Provider: Betina Harrison LPN - Reason: NPO) 906 (Given - Provider: Alize Hunter LPN) Continuous Medication Order 12/05/2024 12/06/2024 12/07/2024 Isolyte-S pH 7.4 infusion (CANCELED) Intravenous, at 10 mL/hr, Plasma-LYTE 148, isolyte-S, and isolyte-S pH 7.4 are considered equivalent - including for MAR barcode scanning., CONTINUOUS, Starting on Mon12/06/24 at 1145, Until Mon12/06/24 at 1154 1114 (New Bag - Provider: Shira Wiley RN)1200 (Stopped - Provider: Sharita Fermin RN) PRN Medication Order 12/05/2024 12/06/2024 12/07/2024 capsaicin 0.1% cream Topical, BID PRN Other, Cramping, Starting on Mon12/06/24 at 2015, Until Mon12/07/24 at 1718, Apply to lower extremities as needed for cramping 2137 (Given - Provider: Cathryn F Oren, RN) dextrose 50% inj 25 mL 25 mL, IV Push, PRN Hypoglycemia, Other, For blood glucose 54 - 69 mg/dL or 70 - 100 mg/dL with symptoms AND patient is unresponsive, NPO, OR unable to swallow, Starting on Kayleigh 12/05/24 at 2328, Until 12/07/24 at 1718, Administer IV. Recheck blood glucose after 15 minutes. Notify provider. dextrose 50% inj 50 mL 50 mL, IV Push, PRN Hypoglycemia, Other, For blood glucose below 54 mg/dL AND patient unresponsive, NPO, OR unable to swallow, Starting on Kayleigh 12/05/24 at 2328, Until 12/07/24 at 1718, Administer IV. Recheck blood glucose in 15 minutes. Notify provider. glucagon (Glucagen) inj 1 mg 1 mg, Intramuscular, PRN Hypoglycemia, Other, If patient is unresponsive, or NPO and has no IV access, Starting on Kayleigh 12/05/24 at 2328, Until 12/07/24 at 1718, NPO and no IV access with either 1) blood glucose less than 100 mg/dL and symptomatic OR 2) blood glucose less than 70 mg/dL and asymptomatic Glucose (Glutose 15) 40 % gel 15 g of glucose 15 g of glucose, Oral, PRN Hypoglycemia (low sugar), Other, For blood glucose 54 - 69 mg/dL or 70 - 100 mg/dL with symptoms AND patient alert WITH difficulty chewing/swallowing, Starting on Kayleigh 12/05/24 at 2328, Until 12/07/24 at 1718, Administer gel. Recheck blood glucose after 15 minutes. Notify provider. 37.5 gram tube = 15 grams glucose = 1 each Glucose (Glutose 15) 40 % gel 30 g of glucose 30 g of glucose, Oral, PRN Hypoglycemia (low sugar), Other, For blood glucose below 54 mg/dL AND patient alert WITH difficulty chewing/swallowing, Starting on Kayleigh 12/05/24 at 2328, Until 12/07/24 at 1718, Administer gel. Recheck blood glucose after 15 minutes. Notify provider. 37.5 gram tube = 15 grams glucose = 1 each glucose chew tab 16 g 16 g, Oral, PRN Hypoglycemia, Other, For blood glucose 54 - 69 mg/dL or 70 - 100 mg/dL with symptoms and patient alert without difficulty chewing/swallowing., Starting on Kayleigh 12/05/24 at 2328, Until 12/07/24 at 1718 sodium chloride 0.9 % flush/inj 3 mL 3 mL, IV Push, PRN Other, Line Patency, Starting on Kayleigh 12/05/24 at 2321, Until 12/07/24 at 1718, Do not flush if lock, PICC, or central line not in place, IV infusing or unable to flush documented in this encounter Advance Directives * Full Code (Latest Code Status on File) Date Activated Date Inactivated Comments 12/05/2024 11:24 PM 12/07/2024 5:18 PM This order re flects the patients wishes and were consensually agreed upon. Question Answer Comments Discussion of Advance Directives occurred with: Patient Care Teams Bus Steward Relationship Specialty Start Date End Date Krystian Palomo MD [address] [place] [address] ALEX Elise [phone] PCP - General Family Medicine 12/22/23 documented as of this encounter
--- OUTSIDE RECORDS SUMMARY | 2024-12-28 20:40 | External Medical Summary ---
Author Name Unknown Address Unknown Organization : Laboratory Report Ordering Provider Test Date Status MINH GONZALEZ 12/05/2024 23:37:53 Final Observation Date Value Abnormality Reference (Units ) Status Glucose Point of Care 12/05/2024 23:37:53 114 70-120 (mg/dL) Final Performing Location
--- OUTSIDE RECORDS SUMMARY | 2024-12-28 20:40 | External Medical Summary | Summary of Care ---
Author Name Unknown Organization [facility] Address [address] [facility] [place] [address] Phone [phone] Care Team Providers Care Table Games Dealer Name Role Phone Krystian Palomo MD Primary Care Provide r Reason for Visit * Reason Onset Date Comments Hospital Follow-Up 12/09/2024 Noreen for [facility] Encounter Details Date Type Department Care Team (Late st Contact Info) Description 12/09/2024 [address]phone [address] [place] [phone] Analia Maldonado RN Hospital Follow-Up ([facility]oreen for [facility]) Allergies Active Allergy Reactions Criticality Noted Date Comments Aspirin 01/28/2022 Other reaction(s): bloody nose Salicylates 08/08/2001 nose bleeds documented as of this encounter (statuses as of 12/09/2024) Medications Multivitamin Adult Oral Tablet daily . [...] Tablet by mouth in the morning. Active Dex[employer] G7 Sensor Use as directed every 10 [...] 2 Tablets before bedtime. 180 Tablet 1 Active Insulin Degludec 100 UNIT/ML Subcutaneous Solution Pen-injector (Tresiba FlexTouch)Indicatio ns:Type 2 diabetes mellitus with hemoglobin A1c goal of less than 7.0% (HCC) Inject 10 Units under the skin in the morning. 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 07/05/2023 Hepatic encephalopathy 03/28/2022 Overview (12/06/2022): admitted [facility], ammonia 110 Aortic stenosis, [...] as of this encounter (statuses as of 12/09/2024) Resolved Problems Problem Noted Date Diagnosed Date [...] as of this encounter (statuses as of 12/09/2024) Immunizations Name Administration Dates Next Due COVID-19 [...] file Not on file Not on file 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 (5 years old or older) Answer Entry Date Author No 12/05/2024 10:37 PM Lucía Taylor RN documented in this encounter Miscellaneous Notes * Telephone Encounter - Analia Maldonado RN - 12/09/2024 12:54 PM EST Transitions of Care Note Reason for Referral:Recent Admission Phone visit for follow up: NOREEN Admitted to: [facility], Date: 12.05.24 Discharged to: home , Date: 12.07.24 Diagnosis driving hospitalization: draining cutaneous sinus tract Source/Contact: Patient SUBJECTIVE Consent: Verbal consent for review of hospital discharge: Yes REVIEW OF SYSTEMS Patient/Other Reports: Current patient/caregiver problems or concerns: patient is concerned about his leaking starting again, he has not had any leaking since the additional sutures added, but he is worried if he takes hismeds to have more frequent BM it will leak again. CV: Denies problems Pulmonary: Denies problems Chills/Sweats/Fever:Denies chills/sweats Denies fever Appetite:Denies problems such as nausea, vomiting, burning, decreased appetite Current diet: DM Bowel: patient is suppose to take lactulose 3 times a day and backed down to once daily Bladder: denies problems Wound (If applicable): no drainage noted since home from [facility] Pain:Denies Sleep:Denies problems FUNCTIONAL STATUS: ADL'S: Needs Assistance With:N/A as pt is independent IADL'S: Needs Assistance With:N/A as pt is independent Cognitive and Mental Health: denies problems, alert and oriented x 3, and able to communicate, understand instructions, process information. MEDICATION RECONCILIATION Medications: Does not take all medications as prescribed - patient trying to manage his BM, but is recommended he have 3-4 daily, OBJECTIVE ASSESSMENT Medication Risk Assessment: non compliance with some meds. Did patient fail outpatient treatment? No Discharge instructions available for review? Yes PLAN Symptom Monitoring Interventions:Member/caregiver education - signs and symptoms to contact PrimaryCare (DO NOT DELETE-Three bob symptoms patient is to report to PCP) 1. sob 2. Chest pain 3. Increased abdominal leaking again Teacher Of The Emotionally DisturbedCarton Wrapper of Care interventions/Action Plan: 5 - 7 day follow-up with PCP in place - Date: Dr. Palomo tomorrow Educated on role of NOREEN completed with patient/caregiver. Educated patient/caregiver on patient right to have input on NOREEN plan of care. Verification of Home Health/DME if indicated: NO Identified Care Gaps: Yes Care Gaps closed this call: Transition of Care follow-up communication Re-evaluation of Plan of Care and progress towards goals achievement: Patient education this visit: Verbal, counseled patient he needs to take the lactulose as directed, he will discuss tomorrow withhis pcp Plan to follow-up as previously scheduled, instructed to call Primary Care Provider with change in symptoms or as needed before next follow-up, verbalizes understanding and agrees with plan. Analia Maldonado RN documented in this encounter Plan of Treatment Upcoming Encounters Date Type Department Care Team (Late st Contact Info) Description 12/10/2024 10:20 AM EST Office Visit Family Medicine [address] [place] [phone] Krystian Palomo MD [address] [place] [address] [place] [address] 12/26/2024 9:00 AM EST Office Visit Pharmacy, [address] [place] [address] [place] [address] 03/20/2025 10:30 AM EDT Office Visit Cardiology, [facility] [address] [place] [address] Chino Carrillo PA-C [address] [place] [address] 03/31/2025 4:00 PM EDT Office Visit Nephrology, [facility] [address] [place] [address] Fernando Reina MD [address] [place] [address] 04/18/2025 10:30 AM EDT Office Visit Gastroenterology, [facility] [address] [place] [address] Ren Pineda CRNP [address] [place] [address] 06/02/2025 10:00 AM EDT Office Visit Family Medicine [address] [place] [phone] Krystian Palomo MD [address] [place] [address] [place] [address] 09/11/2025 2:00 PM EST Imaging Radiology [address] [place] [address] Scheduled Procedures Name Priority Associated Diagnoses Date/Ti [...] this encounter Medical Devices Implanted Type Area Him Manager Device Identifier Shelf Expiration Date Model / Serial / Lot Lipiodol Injection - [id number] Implanted:Qty: 1 on 08/02/2023 at [facility] [employer] 04/28/2026 81355-81 [id number] Syr Pf 2ml Embospheres 100-300 - [id number] Implanted:Qty: 1 on 08/02/2023 at [facility] [email or web address] [facility] [id number] 02/26/2026 S220GH / / [id number] Syr Pf 2ml Embospheres 100-300 - [id number] Implanted:Qty: 1 on 04/11/2024 at [facility] [employer] [id number] 12/27/2026 S220GH / / [id number] Lipiodol Injection - [id number] Implanted:Qty: 1 on 04/11/2024 at [facility] [employer] [facility] [id number] documented as of this encounter Advance Directives * Full Code (Latest Code Status on File) Date Activated Date Inactivated Comments 12/05/2024 11:24 PM 12/07/2024 5:18 PM This order re flects the patients wishes and were consensually agreed upon. Question Answer Comments Discussion of Advance Directives occurred with: Patient Care Teams Table Games Dealer Relationship Specialty Start Date End Date Krystian Palomo MD [address] [place] [address] [place] [phone] PCP - General Family Medicine 12/22/23 documented as of this encounter
--- OUTSIDE RECORDS SUMMARY | 2024-12-28 20:40 | External Medical Summary ---
Author Name Unknown Address Unknown Organization : Laboratory Report Ordering Provider Test Date Status MINH GONZALEZ 12/06/2024 12:09:20 Final Observation Date Value Abnormality Reference (Units ) Status Glucose Point of Care 12/06/2024 12:09:20 137 Above high normal 70-120 (mg/dL) Final Performing Location
--- OUTSIDE RECORDS SUMMARY | 2024-12-28 20:40 | External Medical Summary | Summary of Care ---
Author Name Unknown Organization [facility] Address [address] [place] [address] Phone [phone] Care Team Providers Care Civil Designer Name Role Phone Joann Collier MD Primary Care Provide r Reason for Visit * Reason Onset Date Comments Hospital Follow-Up 12/07/2024 Encounter Details Date Type Department Care Team (Late st Contact Info) Description 12/07/2024 Telephone Family Medicine [address] [phone] Joann Collier MD [address] [place] [address] [place] [address] Hospital Follow-Up Allergies Active Allergy Reactions Criticality Noted Date [...] HCl 2.5 MG Oral Tablet (Proamatine)Indicat ions:at [facility] d/c 09.7.24 Take 3 Tablets by [...] 07/05/2023 Hepatic encephalopathy 03/28/2022 Overview (12/06/2022): admitted [facility], ammonia 110 Aortic stenosis, [...] file Not on file Not on 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 We got him scheduled for HD appt. * Telephone Encounter - Flory Wilkinson OSA - 12/09/2024 10:49 AM EST I left message on patient's VM to call me (RE: Scheduling HD appt) * Telephone Encounter - Mona Torre OSA - 12/07/2024 4:21 PM EST Patient Name: LLOYD [place]A([id number]) Sex: Male : 1965 PCP: JOANN COLLIER Center: [facility] Types of orders made on 12/07/2024: Communication, IP Discharge, IP Post Discharge , Medications, Point of Care Testing, Point of Care Testing - Unsolicited Results, Procedure Report Order Date:12/07/2024 Ordering User:DEANDRE WILKINSON [[id number]] Attending Provider:Erwin Garvey MD [[id number]] Authorizing Provider: Deandre Wilkinson MD [[id number]] Department:[address] [place] [address][[id number]] Order Specific Information Order: RETURN APPT [CUSTOM: [id number]] Order #: [id number]: [id number] Priority: Routine Class: Nursing Unit Department (Single Entry) -> Family Practice Released on: 12/07/2024 11:46 AM Priority: Routine Class: Nursing Unit Department (Single Entry) -> Family Practice Released on: 12/07/2024 11:46 AM documented in this encounter Plan of Treatment Upcoming Encounters Date Type Department Care Team (Late st Contact Info) Description 12/10/2024 10:20 AM EST Office Visit Family Medicine [address] [place] [phone] Joann Collier MD [address] [place] [address] [place] [address] 12/26/2024 9:00 AM EST Office Visit Pharmacy, [address] [place] [address] [place] [address] 03/20/2025 10:30 AM EDT Office Visit Cardiology, [facility] [address] [place] [address] Chino Carrillo PA-C [address] [place] [address] 03/31/2025 4:00 PM EDT Office Visit Nephrology, [address] [place] [address] Fernando Reina MD [address] [place] [address] 04/18/2025 10:30 AM EDT Office Visit Gastroenterology, [facility] [address] [place] [address] Ren Pineda CRNP [address] [place] [address] 06/02/2025 10:00 AM EDT Office Visit Family Medicine [address] [place] [phone] Joann Collier MD [address] [place] [address] [place] [address] 09/11/2025 2:00 PM EST Imaging Radiology [address] [place] [address] Scheduled Procedures Name Priority Associated Diagnoses Date/Ti [...] this encounter Medical Devices Implanted Type Area Block Piler Device Identifier Shelf Expiration Date Model / Serial / Lot Lipiodol Injection - [id number] Implanted:Qty: 1 on 08/02/2023 at [facility] [employer] 04/28/2026 [id number] Syr Pf 2ml Embospheres 100-300 - [id number] Implanted:Qty: 1 on 08/02/2023 at [facility] [employer] [id number] 02/26/2026 S220GH / / [id number] Syr Pf 2ml Embospheres 100-300 - [id number] Implanted:Qty: 1 on 04/11/2024 at [facility] [employer] [id number] 12/27/2026 S220GH / / [id number] Lipiodol Injection - [id number] Implanted:Qty: 1 on 04/11/2024 at [facility] KYLER LAU [id number] / / documented as of this encounter Advance Directives * Full Code (Latest Code Status on File) Date Activated Date Inactivated Comments 12/05/2024 11:24 PM 12/07/2024 5:18 PM This order re flects the patients wishes and were consensually agreed upon. Question Answer Comments Discussion of Advance Directives occurred with: Patient Care Teams Civil Designer Relationship Specialty Start Date End Date Joann Collier MD [address] [place] [address] [place] [address] PCP - General Family Medicine 12/22/23 documented as of this encounter
--- OUTSIDE RECORDS SUMMARY | 2024-12-28 20:40 | External Medical Summary ---
Author Name Unknown Address Unknown Organization K1F:[facility] - [address] [place] [address] Laboratory Report Ordering Provider Test Date Status CARMEN TAVERA 12/06/2024 00:36:00 Final Observation Date Value Abnormality Reference (Units ) Status WBC, Total 12/06/2024 00:36:00 6.51 4.00-10.8 0 (K/uL) Final RBC 12/06/2024 00:36:00 2.42 4.50-5.25 (M/uL) Final Hemoglobin 12/06/2024 00:36:00 8.4 Below low normal 14 .0-16.8 (g/dL) Final HCT 12/06/2024 00:36:00 25.5 Below low normal 40. 0-48.4 (%) Final MCV 12/06/2024 00:36:00 105.4 82.0-99.5 (fL) Final MCH 12/06/2024 00:36:00 34.7 27.0-34.0 (pg) Final MCHC 12/06/2024 00:36:00 32.9 32.0-36.0 (g/dL) Final RDW 12/06/2024 00:36:00 20.1 11.5-15.5 (%) Final Platelets 12/06/2024 00:36:00 80 Below low normal 140 -400 (K/uL) Final Results rechecked. MPV 12/06/2024 00:36:00 10.8 6.6-11.1 ( fL) Final Nucleated erythrocytes/100 leukocytes [Ratio] in Blood by Automated count 12/06/2024 00:36:00 0 <=0 (/100 WBCs) Fi nal Performing Location [facility] - [address] [place] [address]
--- OUTSIDE RECORDS SUMMARY | 2024-12-28 20:40 | External Medical Summary | Summary of Care ---
Author Name Unknown Organization [facility] Address [address] [place] [address] Phone [phone] Care Team Providers Care Public Finance Specialist Name Role Phone Joann Collier MD Primary Care Provide r Reason for Visit * Reason Onset Date Comments Hospital Follow-Up 12/07/2024 Encounter Details Date Type Department Care Team (Late st Contact Info) Description 12/07/2024 Telephone Family Medicine [address] [phone] Joann Collier MD [address] [place] [address] [place] [address] Hospital Follow-Up Allergies Active Allergy Reactions [...] HCl 2.5 MG Oral Tablet (Proamatine)Indicat ions:at [facility] d/c 09.7.24 Take 3 Tablets by mouth [...] 07/05/2023 Hepatic encephalopathy 03/28/2022 Overview (12/06/2022): admitted [facility], ammonia 110 Aortic stenosis, moderate 01/21/2022 [...] file Not on file Not on file 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 Not on file Not [...] 12/07/2024 4:21 PM EST Patient Name: LLOYD HUERTA([id number]) Sex: Male : 1965 PCP: JOANN COLLIER Center: [facility] Types of orders made on 12/07/2024: Communication, IP Discharge, IP Post Discharge , Medications, Point of Care Testing, Point of Care Testing - Unsolicited Results, Procedure Report Order Date:12/07/2024 Ordering User:DEANDRE WILKINSON [[id number]] Attending Provider:Erwin Gravey MD [[id number]] Authorizing Provider: Deandre Wilkinson MD [[id number]] Department:[address] [place] [address][[id number]] Order Specific Information Order: RETURN APPT [CUSTOM: IP355] Order #: [id number]: [id number] Priority: Routine Class: Nursing Unit Department (Single Entry) -> Family Practice Released on: 12/07/2024 11:46 AM Priority: Routine Class: Nursing Unit Department (Single Entry) -> Family Practice Released on: 12/07/2024 11:46 AM documented in this encounter Plan of Treatment Upcoming Encounters Date Type Department Care Team (Late st Contact Info) Description 12/10/2024 10:20 AM EST Office Visit Family Medicine [address] [place] [phone] Joann Collier MD [address] [place] [address] [place] [address] 12/26/2024 9:00 AM EST Office Visit Pharmacy, [address] [place] [address] [place] [address] 03/20/2025 10:30 AM EDT Office Visit Cardiology, [facility] [address] [place] [address] Chino Carrillo PA-C [address] [place] [address] 03/31/2025 4:00 PM EDT Office Visit Nephrology, [address] [place] [address] Fernando Reina MD [address] [place] [address] 04/18/2025 10:30 AM EDT Office Visit Gastroenterology, [facility] [address] [place] [address] Ren Pineda CRNP [address] [place] [address] 06/02/2025 10:00 AM EDT Office Visit Family Medicine [address] [place] [phone] Joann Collier MD [address] [place] [address] [place] [address] 09/11/2025 2:00 PM EST Imaging Radiology [address] [place] [address] Scheduled Procedures Name Priority Associated Diagnoses Date/Ti [...] this encounter Medical Devices Implanted Type Area Art Critic Device Identifier Shelf Expiration Date Model / Serial / Lot Lipiodol Injection - [id number] Implanted:Qty: 1 on 08/02/2023 at [facility] [employer] 04/28/2026 [id number] Syr Pf 2ml Embospheres 100-300 - [id number] Implanted:Qty: 1 on 08/02/2023 at [facility] [employer] [id number] 02/26/2026 S220GH / / [id number] Syr Pf 2ml Embospheres 100-300 - [id number] Implanted:Qty: 1 on 04/11/2024 at [facility] [employer] [id number] 12/27/2026 S220GH / / [id number] Lipiodol Injection - [id number] Implanted:Qty: 1 on 04/11/2024 at [facility] KYLER LAU [id number] / / documented as of this encounter Advance Directives * Full Code (Latest Code Status on File) Date Activated Date Inactivated Comments 12/05/2024 11:24 PM 12/07/2024 5:18 PM This order re flects the patients wishes and were consensually agreed upon. Question Answer Comments Discussion of Advance Directives occurred with: Patient Care Teams Public Finance Specialist Relationship Specialty Start Date End Date Joann Collier MD [address] [place] [address] [place] [address] PCP - General Family Medicine 12/22/23 documented as of this encounter
--- OUTSIDE RECORDS SUMMARY | 2024-12-28 20:40 | External Medical Summary ---
Author Name Unknown Address Unknown Organization : Laboratory Report Ordering Provider Test Date Status MINH GONZALEZ 12/07/2024 00:10:51 Final Observation Date Value Abnormality Reference (Units ) Status Glucose Point of Care 12/07/2024 00:10:51 118 70-120 (mg/dL) Final Performing Location
[2024-12-28 21:34] LABS: Albumin Level 2.4 gm/dl (3.4-5.0); Bilirubin Direct 0.9 mg/dl (0-0.2); Bilirubin,Total 3.3 mg/dl (0.2-1.0); Calcium 7.9 mg/dl (8.6-10.3); Creatinine Clr Calc Pharmacy 92.4 ml/min; Potassium 2.8 mmol/L (3.5-5.1); Total Protein 5.3 gm/dl (6.0-8.3)
--- NOTE | 2024-12-28 21:34 | Emergency Department Note ---
Impression & Plan Hypotension, Thrombocytopenia, Ascites, Shortness of breath ED Provider Note NAME: SATISH HUERTA AGE: 59 SEX: M : 1965 ARRIVES VIA: Ambulance INFORMANT: Patient, ED PROVIDER(S): Aj Oleary MD CHIEF COMPLAINT: Liver cancer, shortness of breath HPI: This is a 59-year-old male with history of liver cancer presenting for shortness of breath. Patient states that about a p.m. he developed increasing shortness of breath. He notes pressure in his abdomen. He notes he is post he had a paracentesis on Monday. He notes he is a chronic weakness ever since having this cancer and ascites. He notes nausea without vomiting. He notes dry heaving. Reports no abdominal pain or chest pain. He reports getting radiation. No fevers, chills. ROS: See above HPI for pertinent positives & negatives. A total of 10 systems reviewed and were otherwise negative. PAST MEDICAL HISTORY: See Below PAST SURGICAL HISTORY: See Below FAMILY HISTORY: See Below SOCIAL HISTORY: See Below HOME MEDICATIONS: See Below ALLERGIES: See Below VITALS: See Below PHYSICAL EXAMINATION: General: resting comfortably in no acute distress Head: Normocephalic and atraumatic Eyes: Normal inspection, extraocular muscles intact Ear, nose, throat: Normal external exam Neck: Normal range of motion Respiratory: lungs clear to auscultation bilaterally Cardiovascular: Regular rate/rhythm, no murmur GI: Distended significantly without pain Extremities: nontender, moves all extremities Neuro: The patient awake and alert, appropriately conversive, no focal deficits, symmetric faces Skin: Warm, dry, and intact MEDICAL DECISION MAKING: This is a 67-year-old male with history of liver cancer presented for shortness of breath. Will do screening x-ray, basic blood work, ammonia and lactic acid level. Consider that patient's abdominal distention is causing his shortness of breath -Blood work reviewed lactic acid level of 4.3. Patient given ceftriaxone at this time for possible SBP. -Patient given fluid bolus with improvement to 3.1. Otherwise patient's hemoglobin is downtrending to 6.8. Platelet count 84. -He is hyponatremic with hypokalemia noted. Hypochloremic as well. Calcium 7.9. Total bilirubin 3.3 with a direct bili of 0.9. AST 52, ALT 39. -Show protein low at 5.3. Albumin 2.4. -Chest Xray independently interpreted by me showing no pneumothorax, focal opacity, or pleural effusions. -Due to patient having abdominal ascension, some moderate pain and elevated lactic acid level, diagnostic paracentesis performed removing about 50 cc of fluid. -The results of this do not show signs of acute infection. -Patient admitted to hospital service for further workup, probable paracentesis. -Discussed care with Dr. Hernandez for admission Differential diagnosis: Fluid overload, abdominal distention, pneumonia, SBP Diagnostics interpreted by me: ECG: None Cardiac Monitoring: An order was placed for continuous cardiac monitoring. The monitor shows a rate of 94 with sinus rhythm. Past Med/Surg History Problem List (Updated 12/29/24 @ 01:20 by Luciano Hernandez MD) SOB (shortness of breath) Abdominal ascites (Acute) Hypoalbuminemia (Acute) Hypokalemia (Acute) Hernia, umbilical (Acute) Thyroid lesion Mass of soft tissue of neck Acute dyspnea (Acute) Pleural effusion (Acute) Pleural effusion Hypokalemia (Acute) Hypomagnesemia (Acute) Constipation (Acute) Abdominal pain (Acute) Hyponatremia Orthostatic hypotension Dizziness (Acute) Medical non-compliance (Acute) Hyperammonemia (Acute) Ascites (Acute) Urinary retention Cirrhosis (Acute) Morbid obesity Hepatic encephalopathy 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 "if i get up to fast". S/P abdominal paracentesis Fracture of rib of right side 2013 Anaplasmosis 2019 Acute hepatic encephalopathy Cardiac murmur HX Hypertension Right rib fracture hx ~. Surgical History History of esophagogastroduodenoscopy (EGD) History of colonoscopy Family History (Updated 12/18/24 @ 10:37 by Melany Pickens RN) Mother History of colonoscopy Cancer Colon Brother Family history of diabetes mellitus Brother Family history of diabetes mellitus Grandmother (Paternal) Family history of diabetes mellitus Other No family history of adverse response to anesthesia Social History (Updated 12/18/24 @ 10:40 by Melany Pickens RN) Smoking Status: Former smoker Tobacco Type: Smokeless Tobacco (Dip or Chew) packs per day: 0.25; Second Hand Exposure: No; Do You Dip or Chew Tobacco: Yes; Hx Alcohol Use: No Hx Substance Use: No Preferred Language: [place] Communication Ability: Effective Hearing Ability: Normal Project Product Manager Required: No Beliefs That Will Affect Care: None marital status: Single Current Living Situation: Family Current Living Situation Comment: With brother and mother Feels Safe at Home: Yes Assistive Devices: Cane and Walker Allergies Allergies Allergy/AdvReac Type Severity Reaction Status Date / Time aspirin AdvReac Intermediate NOSE Verified 12/18/24 10:32 BLEEDS--IF TAKES REGULARLY salicylates AdvReac Intermediate NOSE BLEEDS Verified 12/18/24 10:32 Home Meds Home Medications Medication Instructions Recorded Confirmed allopurinol 300 mg tablet 300 mg PO DAILY 12/29/24 12/29/24 ascorbic acid (vitamin C) 1,000 mg 1 g PO DAILY 12/29/24 12/29/24 tablet atorvastatin 20 mg tablet 20 mg PO DAILY 12/29/24 12/29/24 docusate sodium 100 mg capsule 100 mg PO BID PRN Constipation 12/29/24 12/29/24 insulin degludec 100 unit/mL (3 10 unit subcut DAILY 12/29/24 12/29/24 mL) subcutaneous pen lactulose 10 gram/15 mL oral 45 ml PO TID 12/29/24 12/29/24 solution magnesium chloride 64 mg 64 mg PO DAILY 12/29/24 12/29/24 (magnesium chloride) tablet,delayed release (Mag-Delay) midodrine 2.5 mg tablet 7.5 mg PO TID 12/29/24 12/29/24 multivitamin 1 tab PO DAILY 12/29/24 12/29/24 omeprazole 20 mg capsule,delayed 20 mg PO DAILY 12/29/24 12/29/24 release potassium chloride 10 mEq 20 meq PO TID 12/29/24 12/29/24 tablet,extended release(part/cryst) rifaximin 550 mg tablet (Xifaxan) 550 mg PO BID 12/29/24 12/29/24 sodium chloride 1,000 mg soluble 1,000 mg PO BID 12/29/24 12/29/24 tablet tamsulosin 0.4 mg capsule 0.4 mg PO DAILY 12/29/24 12/29/24 torsemide 20 mg tablet 20 mg PO DAILY 12/29/24 12/29/24 Results & Data (ED) Vital Signs Vital Signs - 24 hr 12/28/24 20:37 12/28/24 20:48 12/28/24 20:49 Temperature 36.5 C Temperature Source Oral Pulse Rate 92 H 90 Pulse Rate [Apical] 92 H Pulse Rate from SpO2 Sensor Respiratory Rate 24 Blood Pressure 87/52 L Blood Pressure [Right Arm] 102/61 Blood Pressure Mean 63 Blood Pressure Mean [Right Arm] 74 Pulse Oximetry 99 100 Oxygen Delivery Method Room Air Room Air Sepsis Recent Fever Within 48 Hours No Sepsis New/Unexplained Change in Mental Status No Sepsis Action Taken by Nursing Physician Notified 12/28/24 21:06 12/28/24 21:12 12/28/24 21:15 Temperature Temperature Source Pulse Rate 94 H 93 H 93 H Pulse Rate [Apical] Pulse Rate from SpO2 Sensor 91 H 93 H Respiratory Rate 20 28 H 24 Blood Pressure 102/61 102/60 Blood Pressure [Right Arm] Blood Pressure Mean 74 84 Blood Pressure Mean [Right Arm] Pulse Oximetry 98 99 Oxygen Delivery Method Sepsis Recent Fever Within 48 Hours Sepsis New/Unexplained Change in Mental Status Sepsis Action Taken by Nursing 12/28/24 21:21 12/28/24 21:24 12/28/24 21:54 Temperature Temperature Source Pulse Rate 95 H 93 H 92 H Pulse Rate [Apical] Pulse Rate from SpO2 Sensor 95 H 93 H 92 H Respiratory Rate 26 H 24 22 Blood Pressure 102/61 Blood Pressure [Right Arm] Blood Pressure Mean 74 Blood Pressure Mean [Right Arm] Pulse Oximetry 96 99 97 Oxygen Delivery Method Sepsis Recent Fever Within 48 Hours Sepsis New/Unexplained Change in Mental Status Sepsis Action Taken by Nursing 12/28/24 22:00 12/28/24 22:03 12/28/24 22:24 Temperature Temperature Source Pulse Rate 90 97 H Pulse Rate [Apical] Pulse Rate from SpO2 Sensor 90 97 H Respiratory Rate 19 17 Blood Pressure 106/63 106/63 98/66 L Blood Pressure [Right Arm] Blood Pressure Mean 73 77 76 Blood Pressure Mean [Right Arm] Pulse Oximetry 95 99 Oxygen Delivery Method Sepsis Recent Fever Within 48 Hours Sepsis New/Unexplained Change in Mental Status Sepsis Action Taken by Nursing 12/28/24 22:36 12/28/24 22:45 12/28/24 23:39 Temperature Temperature Source Pulse Rate 89 94 H Pulse Rate [Apical] Pulse Rate from SpO2 Sensor 93 H Respiratory Rate 15 30 H Blood Pressure 98/66 L 108/59 L 97/49 L Blood Pressure [Right Arm] Blood Pressure Mean 76 73 65 Blood Pressure Mean [Right Arm] Pulse Oximetry 96 Oxygen Delivery Method Room Air Sepsis Recent Fever Within 48 Hours Sepsis New/Unexplained Change in Mental Status Sepsis Action Taken by Nursing 12/29/24 00:06 12/29/24 00:26 12/29/24 00:44 Temperature 36.4 C L 36.4 C L Temperature Source Oral Oral Pulse Rate 93 H 88 90 Pulse Rate [Apical] Pulse Rate from SpO2 Sensor 93 H Respiratory Rate 22 16 14 Blood Pressure 77/41 L 97/75 L 82/57 L Blood Pressure [Right Arm] Blood Pressure Mean 53 82 65 Blood Pressure Mean [Right Arm] Pulse Oximetry 100 100 95 Oxygen Delivery Method Room Air Sepsis Recent Fever Within 48 Hours Sepsis New/Unexplained Change in Mental Status Sepsis Action Taken by Nursing 12/29/24 00:48 12/29/24 00:59 Temperature 36.3 C L Temperature Source Oral Pulse Rate 82 94 H Pulse Rate [Apical] Pulse Rate from SpO2 Sensor Respiratory Rate 18 Blood Pressure 101/62 Blood Pressure [Right Arm] Blood Pressure Mean 75 Blood Pressure Mean [Right Arm] Pulse Oximetry 98 Oxygen Delivery Method Sepsis Recent Fever Within 48 Hours Sepsis New/Unexplained Change in Mental Status Sepsis Action Taken by Nursing Laboratory Data 12/28/24 20:44 12/28/24 20:44 Lab Results 12/28/24 12/28/24 12/28/24 Range/Units 20:44 22:51 22:55 WBC 6.57 (4.8-10.8) K/ul RBC 1.99 L (4.70-6.10) M/uL Hgb 6.8 L* (14.0-18.0) g/dl Hct 20.1 L* (42.0-52.0) % MCV 101.0 H (80.0-100.0) fL MCH 34.2 H (25.0-34.0) pg MCHC 33.8 (32.0-36.0) g/dL RDW Std Deviation 65.1 H (36.4-46.3) fL RDW Coeff of [place] 18.0 H (11.5-14.5) % Plt Count 84 L (130-400) K/uL MPV 10.3 (9.4-12.4) fL Immature Gran % (Auto) 1.5 % Neut % (Auto) 76.5 % Lymph % (Auto) 5.0 % [place] % (Auto) 14.6 % Eos % (Auto) 1.5 % Baso % (Auto) 0.9 % Neut # (Auto) 5.02 (1.40-6.50) K/uL Lymph # (Auto) 0.33 L (1.20-3.40) K/uL [place] # (Auto) 0.96 H (0.11-0.59) K/uL Eos # (Auto) 0.10 (0.00-0.50) K/uL Baso # (Auto) 0.06 (0.00-0.20) K/uL Immature Gran # (Auto) 0.10 (0.01-0.20) K/uL Anisocytosis Present Sodium 127 L (136-145) mmol/L Potassium 2.8 L (3.5-5.1) mmol/L Chloride 91 L (98-107) mmol/L Carbon Dioxide 25 (21-32) mmol/L Anion Gap 11 (3-11) BUN 16 (6-23) mg/dl Creatinine 1.07 (0.6-1.4) mg/dl Est Cr Clr Drug Dosing 92.4 ml/min eGFR 79.44 BUN/Creatinine Ratio 15.0 (10-20) Glucose 193 H (70-99(Fasting)) mg/dl Lactate 4.3 H* 3.1 H* (0.4-2.0) mmol/L Calcium 7.9 L (8.6-10.3) mg/dl Total Bilirubin 3.3 H (0.2-1.0) mg/dl Direct Bilirubin 0.9 H (0-0.2) mg/dl AST 52 H (13-39) U/L ALT 39 (7-52) U/L Alkaline Phosphatase 117 H (34-104) U/L Ammonia 64.0 (18-72) umol/L Total Protein 5.3 L (6.0-8.3) gm/dl Albumin 2.4 L (3.4-5.0) gm/dl Lipase 63 (11-82) U/L Fluid Neutrophils % 6 % Fluid Lymphocytes % 19 % Fluid Meso/Macro/[place] % 75 % Fluid Comment Peritoneal Color Pale Yellow Peritoneal Appearance Clear Peritoneal WBC (Auto) 48 (0-300) /ul Peritoneal RBC (Auto) < 2000 /uL Peritoneal Tot Protein < 3.0 gm/dl Peritoneal Albumin < 1.5 gm/dl Peritoneal LDH < 25 U/L Peritoneal Glucose 200 mg/dl Blood Type Antibody Screen Crossmatch 12/28/24 Range/Units 22:59 WBC (4.8-10.8) K/ul RBC (4.70-6.10) M/uL Hgb (14.0-18.0) g/dl Hct (42.0-52.0) % MCV (80.0-100.0) fL MCH (25.0-34.0) pg MCHC (32.0-36.0) g/dL RDW Std Deviation (36.4-46.3) fL RDW Coeff of [place] (11.5-14.5) % Plt Count (130-400) K/uL MPV (9.4-12.4) fL Immature Gran % (Auto) % Neut % (Auto) % Lymph % (Auto) % [place] % (Auto) % Eos % (Auto) % Baso % (Auto) % Neut # (Auto) (1.40-6.50) K/uL Lymph # (Auto) (1.20-3.40) K/uL [place] # (Auto) (0.11-0.59) K/uL Eos # (Auto) (0.00-0.50) K/uL Baso # (Auto) (0.00-0.20) K/uL Immature Gran # (Auto) (0.01-0.20) K/uL Anisocytosis Sodium (136-145) mmol/L Potassium (3.5-5.1) mmol/L Chloride (98-107) mmol/L Carbon Dioxide (21-32) mmol/L Anion Gap (3-11) BUN (6-23) mg/dl Creatinine (0.6-1.4) mg/dl Est Cr Clr Drug Dosing ml/min eGFR BUN/Creatinine Ratio (10-20) Glucose (70-99(Fasting)) mg/dl Lactate (0.4-2.0) mmol/L Calcium (8.6-10.3) mg/dl Total Bilirubin (0.2-1.0) mg/dl Direct Bilirubin (0-0.2) mg/dl AST (13-39) U/L ALT (7-52) U/L Alkaline Phosphatase (34-104) U/L Ammonia (18-72) umol/L Total Protein (6.0-8.3) gm/dl Albumin (3.4-5.0) gm/dl Lipase (11-82) U/L Fluid Neutrophils % % Fluid Lymphocytes % % Fluid Meso/Macro/[place] % % Fluid Comment Peritoneal Color Peritoneal Appearance Peritoneal WBC (Auto) (0-300) /ul Peritoneal RBC (Auto) /uL Peritoneal Tot Protein gm/dl Peritoneal Albumin gm/dl Peritoneal LDH U/L Peritoneal Glucose mg/dl Blood Type A Positive Antibody Screen NEGATIVE Crossmatch See Detail Administered Medications Potassium Chloride (K Henry / Wtr) 10 meq in 100 mls @ 100 mls/hr IV Q1H MOODY Stop: 12/29/24 02:14 Last Admin: 12/29/24 00:44 Dose: 100 mls/hr Documented By: Infusion: 12/29/24 00:44 Dose: Infused Documented By: Admin: 12/28/24 23:56 Dose: 100 mls/hr Documented By: KRISTEN Discontinued Medications Ceftriaxone Sodium (Rocephin) 2,000 mg in 50 mls @ 100 mls/hr IV NOW STA Stop: 12/28/24 22:06 Last Infusion: 12/28/24 23:56 Dose: Infused Documented By: Admin: 12/28/24 23:11 Dose: 100 mls/hr Documented By: KRISTEN Pantoprazole Sodium 80 mg/ (Dextrose) 120 mls @ 480 mls/hr IV NOW ONE Stop: 12/29/24 00:59 Last Admin: 12/29/24 01:06 Dose: 480 mls/hr Documented By: KRISTEN Cefepime HCl (Maxipime 2000mg) 2,000 mg in 20 mls @ 5 mls/min IV NOW STA; Protocol Stop: 12/29/24 00:48 Last Admin: 12/29/24 01:05 Dose: 5 mls/min Documented By: KRISTEN Lidocaine/Epinephrine (Lidocaine 1%/Epinephrine 1:100,000 50 Ml Vial) Confirm Administered Dose 1 ml .ROUTE .STK-MED ONE Stop: 12/28/24 22:21 Last Admin: 12/28/24 23:07 Dose: Not Given Documented By: MARTHA Midodrine (Midodrine Hcl 2.5 Mg Tab) 5 mg PO NOW STA Stop: 12/29/24 00:08 Last Admin: 12/29/24 00:17 Dose: 5 mg Documented By: KRISTEN Midodrine (Midodrine Hcl 2.5 Mg Tab) 2.5 mg PO NOW STA Stop: 12/29/24 00:27 Last Admin: 12/29/24 01:05 Dose: 2.5 mg Documented By: KRISTEN Potassium Chloride (Potassium Chloride Crtab 20 Meq Tabcr) 40 meq PO NOW STA Stop: 12/28/24 23:13 Last Admin: 12/28/24 23:53 Dose: 40 meq Documented By: KRISTEN Imaging Data Radiologist's Impression: Chest X-Ray 12/28/24 20:55 Exam(s): XR CXR 1 VIEW EXAM: XR Chest, 1 View CLINICAL HISTORY: Reason for exam: SOB. TECHNIQUE: Frontal views of the chest. COMPARISON: 11/29/2024. FINDINGS: Lungs: There is increased opacity at the left lung base.. Pleural space: There is a small left pleural effusion.. No pneumothorax. Heart: The heart is normal in size.. Mediastinum: There is mild uncoiling of thoracic aorta.. Bones/joints: There are degenerative changes in the spine.. IMPRESSION: There is a small left pleural effusion with infiltrate and/or atelectasis at the left lung base.. Electronically signed by: Cody Champion MD 12/29/24 00:30 AM Discharge Plan Visit Data Chief Complaint: Shortness of Breath/Dyspnea Stated Complaint: SOB, distended abdomen, ascites, liver ca ED Provider: Aj Oleary Discharge Problem: Hypotension, Thrombocytopenia, Ascites, Shortness of breath Forms Stand Alone Forms: [facility] [employer] Prescriptions Prescriptions: No Action torsemide 20 mg tablet 20 mg PO DAILY tamsulosin 0.4 mg capsule 0.4 mg PO DAILY docusate sodium 100 mg capsule 100 mg PO BID PRN (Reason: Constipation) omeprazole 20 mg capsule,delayed release(DR/EC) 20 mg PO DAILY allopurinol 300 mg tablet 300 mg PO DAILY midodrine 2.5 mg tablet 7.5 mg PO TID potassium chloride 10 mEq tablet,ER particles/crystals 20 meq PO TID lactulose 10 gram/15 mL solution 45 ml PO TID sodium chloride 1,000 mg tablet,soluble 1,000 mg PO BID magnesium chloride [Mag-Delay] 64 mg tablet,delayed release (DR/EC) 64 mg PO DAILY Xifaxan 550 mg tablet 550 mg PO BID insulin degludec 100 unit/mL (3 mL) insulin pen 10 unit SUBCUT DAILY atorvastatin 20 mg Tablet 20 mg PO DAILY multivitamin Tablet 1 tab PO DAILY ascorbic acid (vitamin C) 1,000 mg Tablet 1 g PO DAILY Referrals Referrals: Krystian Palomo MD [Primary Care Provider] - Discharge Problem: Hypotension Qualifiers: Hypotension type: other hypotension type Qualified Code(s): I95.89 - Other hypotension Ascites Qualifiers: Ascites type: other type Qualified Code(s): R18.8 - Other ascites
[2024-12-28 21:51] LABS: Hematocrit (blood only) 20.1 % (42.0-52.0); Hemoglobin 6.8 g/dl (14.0-18.0); Mean Corpuscular Hemoglobin 34.2 pg (25.0-34.0); Mean Corpuscular Hgb Conc 33.8 g/dL (32.0-36.0); Mean Platelet Volume 10.3 fL (9.4-12.4); Platelet Count 84 K/uL (130-400); RDW Standard Deviation 65.1 fL (36.4-46.3); Red Blood Count 1.99 M/uL (4.70-6.10); White Blood Count 6.57 K/ul (4.8-10.8)
[2024-12-28 22:18] LABS: Anisocytosis Present; Basophils # (auto) 0.06 K/uL (0.00-0.20); Basophils % (auto) 0.9 %; Eosinophils % (auto) 1.5 %; Immature Granulocytes % (auto) 1.5 %; Lymphocytes # (auto) 0.33 K/uL (1.20-3.40); Monocytes # (auto) 0.96 K/uL (0.11-0.59); Monocytes % (auto) 14.6 %; Neutrophils # (auto) 5.02 K/uL (1.40-6.50); Neutrophils % (auto) 76.5 %
[2024-12-28] MEDS: LIDOCAINE 1%/EPINEPHRINE 1:100,000 50 ML VIAL ONE (23:07)
[2024-12-28] MEDS: cefTRIAXone SODIUM 2,000 MG/50 ML BAG IV STA (23:11)
[2024-12-28] MEDS ORDERED: SODIUM CHLORIDE 0.9% 50 ML IV PRN (23:12)
[2024-12-28] MEDS ORDERED: SODIUM CHLORIDE 0.9% 100 ML IV PRN (23:12)
[2024-12-28 23:47] LABS: Albumin Peritoneal Fluid < 1.5 gm/dl; Glucose Peritoneal Fluid 200 mg/dl; LDH Peritoneal Fluid < 25 U/L; Total Protein Peritoneal Fluid < 3.0 gm/dl
[2024-12-28] MEDS: POTASSIUM CHLORIDE CRTAB 20 MEQ TABCR PO STA (23:53)
[2024-12-28 23:56] LABS: Appearance Peritoneal Fluid Clear; Color Peritoneal Fluid Pale Yellow; RBC Peritoneal Fluid Auto < 2000 /uL; WBC Peritoneal Fluid Auto 48 /ul (0-300)
[2024-12-28] MEDS: POTASSIUM CHLORIDE / WTR 10 MEQ/100 ML PLCT IV SCH (23:56)
[2024-12-29 00:12] LABS: Lymphocytes, Fluid 19 %; Mono,Macrophage,Mesothelial 75 %; Neutrophils, Fluid 6 %
[2024-12-29] MEDS: MIDODRINE HCL 2.5 MG TAB PO STA ×2 (00:17→01:05)
[2024-12-29] MEDS ORDERED: PANTOPRAZOLE BOLUS/DRIP IV STA (00:27)
[2024-12-29] MEDS ORDERED: VANCOMYCIN CONSULT ACTIVE PRN (00:27)
--- NOTE | 2024-12-29 00:32 | XRay Report ---
Exam(s): XR CXR 1 VIEW EXAM: XR Chest, 1 View CLINICAL HISTORY: Reason for exam: SOB. TECHNIQUE: Frontal views of the chest. COMPARISON: 11/29/2024. FINDINGS: Lungs: There is increased opacity at the left lung base.. Pleural space: There is a small left pleural effusion.. No pneumothorax. Heart: The heart is normal in size.. Mediastinum: There is mild uncoiling of thoracic aorta.. Bones/joints: There are degenerative changes in the spine.. IMPRESSION: There is a small left pleural effusion with infiltrate and/or atelectasis at the left lung base.. Electronically signed by: Cody Champion MD 12/29/24 00:30 AM
[2024-12-29] MEDS: CEFEPIME 2000MG 2,000 MG/20 ML SYR IV STA (01:05)
[2024-12-29] MEDS: PANTOprazole 80 MG in DEXTROSE 5% 100 ML IV ONE (01:06)
--- NOTE | 2024-12-29 01:20 | History & Physical Report ---
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 Patient states he was feeling very short of breath today. Denies any cough. No fevers. No chest pains. Denies any abdominal pain. Patient says having some black stools for about a week now. Denies any blood in the stools. Says he was not micturating much. Denies headache. Has dizziness. Vision is okay. Has some sore throat. No runny nose. No cough. Blood pressure is soft. Hemoglobin came back 6.8. Patient was recently in the hospital for leaking of the ascitic fluid from the umbilical site even though sutures were placed. Patient was transferred to [place] for placement of Pleurx catheter. But at the [facility] transplant team recommended not to place any intra-abdominal catheter under no circumstances as patient is undergoing evaluation for possible liver transplant. General surgery placed sutures and he did okay and was discharged home. Currently patient is getting paracentesis every 5 days. Diagnostic paracentesis done today in the ER unremarkable. Patient ambulates with a walker but not much as he is feeling dizzy. Lives with his brother. Shortness of breath Possible from anemia Possibly from ascites Will follow CT chest rule out PE Currently saturating okay on room air Anemia Hemoglobin 6.8 Baseline recent hemoglobins ranging from 7.5-9 Says he is having black stools for about a week Stool for Hemoccult ER ordered 1 unit of PRBC Protonix drip Close monitor H&H N.p.o. GI consult in a.m. Possible sepsis Initial lactic acid 4.3 repeat is 3.1 Patient also has liver cirrhosis ER gave Rocephin and diagnostic paracentesis unremarkable Empirically placed on cefepime IV vancomycin with 48-hour stop Normal saline 50 mL/h for now Close monitor hemodynamics Follow repeat lactic acid Will follow the cultures Wells liver cirrhosis On lactulose and Xifaxan Total bili 3.3 same as previous labs Will hold torsemide and potassium supplements for now Continue midodrine Getting gentle fluids Patient is getting evaluated for liver transplant Monitor for volume overload Ascites From above Holding diuretics for possible sepsis Patient gets paracentesis every 5 days May need paracentesis soon Recently patient was leaking from umbilical site and it was sutured Will monitor Hypokalemia Will replace Prolonged QT Avoid QT prolonging drugs Replacing potassium Follow repeat EKG Hyponatremia On sodium tablets Follow repeat labs Moderate aortic stenosis Pulmonary hypertension Follow-up with cardiology History of hepatocellular carcinoma/liver lesions Patient received embolization of the right lower lobe lesion in 07/2023 Repeat MRI in 01/2024 showed treatment cavity enhancement patient subsequently treated with TACE MRI on 11/14/2024 showed abnormalities in hepatic segment 7 and currently the plan for SBRT Patient says plan for SBRT from January 07 Diabetes Will cut back on Lantus to 5 units daily as patient is n.p.o. Sliding scale Close monitor Thrombocytopenia From liver cirrhosis Platelets 84 Will monitor History of left hepatic hydrothorax History of gout Allopurinol BPH On Flomax Monitor for urinary retention Hyperlipidemia On Lipitor DVT prophylaxis SCDs Disposition Telemetry CODE STATUS full code if there is chance of recovery per my discussion with the patient History of Present Illness Chief Complaint: Shortness of breath, anemia Primary Care Provider: Krystian Palomo MD 59-year-old male with past medical history significant for type 2 diabetes, hyperlipidemia, chronic idiopathic gout, history of hepatic encephalopathy, primary hypertension, moderate aortic stenosis, 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 Patient states he was feeling very short of breath today. Denies any cough. No fevers. No chest pains. Denies any abdominal pain. Patient says having some black stools for about a week now. Denies any blood in the stools. Says he was not micturating much. Denies headache. Has dizziness. Vision is okay. Has some sore throat. No runny nose. No cough. Blood pressure is soft. Hemoglobin came back 6.8. Patient was recently in the hospital for leaking of the ascitic fluid from the umbilical site even though sutures were placed. Patient was transferred to [place] for placement of Ple urx catheter. But at the [facility] transplant team recommended not to place any intra-abdominal catheter under no circumstances as patient is undergoing evaluation for possible liver transplant. General surgery placed sutures and he did okay and was discharged home. Currently patient is getting paracentesis every 5 days. Diagnostic paracentesis done today in the ER unremarkable. Patient ambulates with a walker but not much as he is feeling dizzy. Lives with his brother. Past medical history. As mentioned above Past surgical history. Colonoscopy. EGD. IR biopsy. IR cancer chemoembolization. Social history. Quit smoking 2004. Chews tobacco. No alcohol use. No drug use. Family history. Mother had colon cancer. Hypertension. Father had diabetes. Emphysema. Hypertension. Black lung. Corneal transplant. Brother has pacemaker. Diabetes. Heart attack. Hypertension. Hyperlipidemia. Liver disease. Sister has rheumatoid arthritis. Allergies Allergy/AdvReac Type Severity Reaction Status Date / Time aspirin AdvReac Intermediate NOSE Verified 12/18/24 10:32 BLEEDS--IF TAKES REGULARLY salicylates AdvReac Intermediate NOSE BLEEDS Verified 12/18/24 10:32 Home Medications Medication Instructions Recorded Confirmed Type allopurinol 300 mg tablet 300 mg PO DAILY 12/29/24 12/29/24 History ascorbic acid (vitamin C) 1,000 mg 1 g PO DAILY 12/29/24 12/29/24 History tablet atorvastatin 20 mg tablet 20 mg PO DAILY 12/29/24 12/29/24 History docusate sodium 100 mg capsule 100 mg PO BID PRN Constipation 12/29/24 12/29/24 History insulin degludec 100 unit/mL (3 10 unit subcut DAILY 12/29/24 12/29/24 History mL) subcutaneous pen lactulose 10 gram/15 mL oral 45 ml PO TID 12/29/24 12/29/24 History solution magnesium chloride 64 mg 64 mg PO DAILY 12/29/24 12/29/24 History (magnesium chloride) tablet,delayed release (Mag-Delay) midodrine 2.5 mg tablet 7.5 mg PO TID 12/29/24 12/29/24 History multivitamin 1 tab PO DAILY 12/29/24 12/29/24 History omeprazole 20 mg capsule,delayed 20 mg PO DAILY 12/29/24 12/29/24 History release potassium chloride 10 mEq 20 meq PO TID 12/29/24 12/29/24 History tablet,extended release(part/cryst) rifaximin 550 mg tablet (Xifaxan) 550 mg PO BID 12/29/24 12/29/24 History sodium chloride 1,000 mg soluble 1,000 mg PO BID 12/29/24 12/29/24 History tablet tamsulosin 0.4 mg capsule 0.4 mg PO DAILY 12/29/24 12/29/24 History torsemide 20 mg tablet 20 mg PO DAILY 12/29/24 12/29/24 History Past Med/Surg History Problem List (Updated 12/29/24 @ 01:20 by Luciano Hernandez MD) SOB (shortness of breath) Abdominal ascites (Acute) Hypoalbuminemia (Acute) Hypokalemia (Acute) Hernia, umbilical (Acute) Thyroid lesion Mass of soft tissue of neck Acute dyspnea (Acute) Pleural effusion (Acute) Pleural effusion Hypokalemia (Acute) Hypomagnesemia (Acute) Constipation (Acute) Abdominal pain (Acute) Hyponatremia Orthostatic hypotension Dizziness (Acute) Medical non-compliance (Acute) Hyperammonemia (Acute) Ascites (Acute) Urinary retention Cirrhosis (Acute) Morbid obesity Hepatic encephalopathy Liver cirrhosis secondary to WELLS (Acute) Thrombocytopenia Hyperlipidemia Gout Diabetes mellitus, type 2 NIDDM Medical History Ureterolithiasis Hepatocellular carcinoma s/p IR embolization Pulmonary hypertension Diabetes mellitus NAFLD (nonalcoholic fatty liver disease) Chronic hyponatremia Dizziness r/t the cirrhosis - using a cane at this time. "if i get up to fast". S/P abdominal paracentesis Fracture of rib of right side 2013 Anaplasmosis 2019 Acute hepatic encephalopathy Cardiac murmur HX Hypertension Right rib fracture hx ~. Surgical History History of esophagogastroduodenoscopy (EGD) History of colonoscopy Family History (Updated 12/18/24 @ 10:37 by Melany Pickens, ELOISE) Mother History of colonoscopy Cancer Colon Brother Family history of diabetes mellitus Brother Family history of diabetes mellitus Grandmother (Paternal) Family history of diabetes mellitus Other No family history of adverse response to anesthesia Social History (Updated 12/18/24 @ 10:40 by eMlany Pickens, RN) Smoking Status: Former smoker Tobacco Type: Smokeless Tobacco (Dip or Chew) packs per day: 0.25; Second Hand Exposure: No; Do You Dip or Chew Tobacco: Yes; Hx Alcohol Use: No Hx Substance Use: No Preferred Language: Belarusian Communication Ability: Effective Hearing Ability: Normal 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 ENT- oropharynx dry Neck- supple, no JVD. Lungs- clear to auscultation no wheezing or crackles Heart- regular rate and rhythm; no murmur, no gallop. Abdomen- normal bowel sounds, soft, nontender, Distended. Umbical hernia seen. recent umbilical ascitic fluid leakage site is dry, no erythema seen. Extremities- no pretibial edema, no erythema seen. Neuro- alert, oriented PERRL, no facial palsy; no dysarthria; moves extremities Results & Data Results & Data Vital Signs (Past 12 Hours) Vital Signs Temp Pulse Pulse Resp BP BP Pulse Ox 12/29/24 00:48 82 12/29/24 00:44 36.4 C L 90 14 82/57 L 95 12/29/24 00:26 36.4 C L 88 16 97/75 L 100 12/29/24 00:06 93 H 22 77/41 L 100 12/28/24 23:39 94 H 30 H 97/49 L 96 12/28/24 22:45 108/59 L 12/28/24 22:36 89 15 98/66 L 12/28/24 22:24 97 H 17 98/66 L 99 12/28/24 22:03 90 19 106/63 95 12/28/24 22:00 106/63 12/28/24 21:54 92 H 22 102/61 97 12/28/24 21:24 93 H 24 99 12/28/24 21:21 95 H 26 H 96 12/28/24 21:15 93 H 24 102/60 12/28/24 21:12 93 H 28 H 99 12/28/24 21:06 94 H 20 102/61 98 12/28/24 20:49 92 H 102/61 100 12/28/24 20:48 90 12/28/24 20:37 36.5 C 92 H 24 87/52 L 99 O2 Del Method 12/29/24 00:48 12/29/24 00:44 12/29/24 00:26 12/29/24 00:06 Room Air 12/28/24 23:39 Room Air 12/28/24 22:45 12/28/24 22:36 12/28/24 22:24 12/28/24 22:03 12/28/24 22:00 12/28/24 21:54 12/28/24 21:24 12/28/24 21:21 12/28/24 21:15 12/28/24 21:12 12/28/24 21:06 12/28/24 20:49 Room Air 12/28/24 20:48 12/28/24 20:37 Room Air Diagnostic Findings Laboratory Results WBC 6.57 K/ul (4.8-10.8) 12/28/24 20:44 RBC 1.99 M/uL (4.70-6.10) L 12/28/24 20:44 Hgb 6.8 g/dl (14.0-18.0) L* 12/28/24 20:44 Hct 20.1 % (42.0-52.0) L* 12/28/24 20:44 MCV 101.0 fL (80.0-100.0) H 12/28/24 20:44 MCH 34.2 pg (25.0-34.0) H 12/28/24 20:44 MCHC 33.8 g/dL (32.0-36.0) 12/28/24 20:44 RDW Std Deviation 65.1 fL (36.4-46.3) H 12/28/24 20:44 RDW Coeff of Polo 18.0 % (11.5-14.5) H 12/28/24 20:44 Plt Count 84 K/uL (130-400) L 12/28/24 20:44 MPV 10.3 fL (9.4-12.4) 12/28/24 20:44 Immature Gran % (Auto) 1.5 % 12/28/24 20:44 Neut % (Auto) 76.5 % 12/28/24 20:44 Lymph % (Auto) 5.0 % 12/28/24 20:44 [place] % (Auto) 14.6 % 12/28/24 20:44 Eos % (Auto) 1.5 % 12/28/24 20:44 Baso % (Auto) 0.9 % 12/28/24 20:44 Neut # (Auto) 5.02 K/uL (1.40-6.50) 12/28/24 20:44 Lymph # (Auto) 0.33 K/uL (1.20-3.40) L 12/28/24 20:44 [place] # (Auto) 0.96 K/uL (0.11-0.59) H 12/28/24 20:44 Eos # (Auto) 0.10 K/uL (0.00-0.50) 12/28/24 20:44 Baso # (Auto) 0.06 K/uL (0.00-0.20) 12/28/24 20:44 Immature Gran # (Auto) 0.10 K/uL (0.01-0.20) 12/28/24 20:44 Anisocytosis Present 12/28/24 20:44 Sodium 127 mmol/L (136-145) L 12/28/24 20:44 Potassium 2.8 mmol/L (3.5-5.1) L 12/28/24 20:44 Chloride 91 mmol/L (98-107) L 12/28/24 20:44 Carbon Dioxide 25 mmol/L (21-32) 12/28/24 20:44 Anion Gap 11 (3-11) 12/28/24 20:44 BUN 16 mg/dl (6-23) 12/28/24 20:44 Creatinine 1.07 mg/dl (0.6-1.4) 12/28/24 20:44 Est Cr Clr Drug Dosing 92.4 ml/min 12/28/24 20:44 eGFR 79.44 12/28/24 20:44 BUN/Creatinine Ratio 15.0 (10-20) 12/28/24 20:44 Glucose 193 mg/dl (70-99(Fasting)) H 12/28/24 20:44 Lactate 3.1 mmol/L (0.4-2.0) H* 12/28/24 22:51 Calcium 7.9 mg/dl (8.6-10.3) L 12/28/24 20:44 Total Bilirubin 3.3 mg/dl (0.2-1.0) H 12/28/24 20:44 Direct Bilirubin 0.9 mg/dl (0-0.2) H 12/28/24 20:44 AST 52 U/L (13-39) H 12/28/24 20:44 ALT 39 U/L (7-52) 12/28/24 20:44 Alkaline Phosphatase 117 U/L (34-104) H 12/28/24 20:44 Ammonia 64.0 umol/L (18-72) 12/28/24 20:44 Total Protein 5.3 gm/dl (6.0-8.3) L 12/28/24 20:44 Albumin 2.4 gm/dl (3.4-5.0) L 12/28/24 20:44 Lipase 63 U/L (11-82) 12/28/24 20:44 Fluid Neutrophils % 6 % 12/28/24 22:55 Fluid Lymphocytes % 19 % 12/28/24 22:55 Fluid Meso/Macro/[place]ien[place] % 75 % 12/28/24 22:55 Fluid Comment 12/28/24 22:55 Peritoneal Color Pale Yellow 12/28/24 22:55 Peritoneal Appearance Clear 12/28/24 22:55 Peritoneal WBC (Auto) 48 /ul (0-300) 12/28/24 22:55 Peritoneal RBC (Auto) < 2000 /uL 12/28/24 22:55 Peritoneal Tot Protein < 3.0 gm/dl 12/28/24 22:55 Peritoneal Albumin < 1.5 gm/dl 12/28/24 22:55 Peritoneal LDH < 25 U/L 12/28/24 22:55 Peritoneal Glucose 200 mg/dl 12/28/24 22:55 Blood Type A Positive 12/28/24 22:59 Antibody Screen NEGATIVE 12/28/24 22:59 Crossmatch See Detail 12/28/24 22:59 Impressions Chest X-Ray 12/28/24 20:55 Exam(s): XR CXR 1 VIEW EXAM: XR Chest, 1 View CLINICAL HISTORY: Reason for exam: SOB. TECHNIQUE: Frontal views of the chest. COMPARISON: 11/29/2024. FINDINGS: Lungs: There is increased opacity at the left lung base.. Pleural space: There is a small left pleural effusion.. No pneumothorax. Heart: The heart is normal in size.. Mediastinum: There is mild uncoiling of thoracic aorta.. Bones/joints: There are degenerative changes in the spine.. IMPRESSION: There is a small left pleural effusion with infiltrate and/or atelectasis at the left lung base.. Electronically signed by: Cody Champion MD 12/29/24 00:30 AM ECG Additional Comments: ECG. Normal sinus rhythm at a rate of 93. Nonspecific ST abnormality. QTc 544 Code Status & VTE Plan VTE Prophylaxis Plan VTE Prophylaxis will be ordered: Yes
[2024-12-29] MEDS: PANTOprazole 40 MG in DEXTROSE 5% MINI-B 100 ML IV SCH (01:31)
[2024-12-29] MEDS: OPTIRAY 320 125ml IV ONE (02:32)
[2024-12-29] MEDS: VANCOMYCIN HCL 2,250 MG in SODIUM CHLORIDE 0.9% 500 ML IV STA (02:52)
[2024-12-29] MEDS ORDERED: DEXTROSE 50% 50 ML SYRINGE IV PRN (02:53)
[2024-12-29] MEDS ORDERED: GLUCOSE 40% GEL 15 GM TUBE PO PRN (02:53)
[2024-12-29] MEDS ORDERED: GLUCAGON FOR INJ 1 MG VIAL SQ PRN (02:53)
[2024-12-29] MEDS ORDERED: GLUCOSE 10 TAB/TUBE PO PRN (02:53)
[2024-12-29] MEDS ORDERED: CARBOHYDRATES FOR HYPOGLYCEMIA PO PRN (02:53)
[2024-12-29] MEDS: SODIUM CHLORIDE 0.9% 1,000 ML IV SCH (03:04)
--- NOTE | 2024-12-29 03:58 | CT Scan Report ---
EXAM: CT angio chest PE protocol CLINICAL HISTORY: PE TECHNIQUE: Contiguous 3.[address] angiographic images of the chest were acquired with the administration of intravenous contrast. Coronal and sagittal reconstructions were obtained. 98 ml opti 320 was administered for post-contrast images. One of these 3D techniques was utilized: Maximum Intensity Pixel (MIP), 3D Reconstructed Images, Volume Rendered Images, Surface Shaded Rendering. One of the following dose reduction techniques were utilized for this exam: Automated exposure control, adjustment of the mA and/or kV according to patient size, and use of iterative reconstruction. CTDI: DLP: COMPARISON: 08/30/2024. FINDINGS: Aorta: The thoracic aorta is normal in caliber. The aortic arch and descending thoracic aorta are unremarkable. Pulmonary Arteries: Pulmonary arteries are normal in size and opacification. No evidence of pulmonary embolism. No stenosis or filling defects. Superior Vena Cava (SVC) and Inferior Vena Cava (IVC): Normal opacification and caliber. No evidence of thrombus or obstruction. Mediastinum: No mediastinal mass or lymphadenopathy. Heart: Normal size and morphology of the heart. No pericardial effusion. Lungs: Moderate-sized left pleural effusion with subsegmental left lower lobe atelectasis No evidence of masses. Bones: No fractures or lytic/sclerotic lesions of the visualized bony structures. Normal alignment and bone density. abdomen: Ascites was noted. The liver is shrunken and irregular, suggesting chronic liver disease Stable coarse calcification in the right liver lobe. IMPRESSION: 1. No evidence of pulmonary embolism. 2. The rest of the findings are stable in comparison with CT on 08/30/2024. 3. Moderate-sized left pleural effusion with subsegmental left lower lobe atelectasis. 4. The liver is shrunken and irregular, suggesting chronic liver disease. 5. Ascites was noted. Electronically signed by Sheron Palomares 12-29-2024 03:57 AM
[2024-12-29 07:55] LABS: Basophils # (auto) 0.06 K/uL (0.00-0.20); Basophils % (auto) 1.1 %; Eosinophils # (auto) 0.21 K/uL (0.00-0.50); Eosinophils % (auto) 3.8 %; Hematocrit (blood only) 22.2 % (42.0-52.0); Hemoglobin 7.7 g/dl (14.0-18.0); Immature Granulocytes # (auto) 0.02 K/uL (0.01-0.20); Immature Granulocytes % (auto) 0.4 %; Lymphocytes # (auto) 0.38 K/uL (1.20-3.40); Lymphocytes % (auto) 6.8 %; Mean Corpuscular Hemoglobin 34.2 pg (25.0-34.0); Mean Corpuscular Hgb Conc 34.7 g/dL (32.0-36.0); Mean Corpuscular Volume 98.7 fL (80.0-100.0); Monocytes # (auto) 0.87 K/uL (0.11-0.59); Monocytes % (auto) 15.5 %; Neutrophils # (auto) 4.06 K/uL (1.40-6.50); Neutrophils % (auto) 72.4 %; Platelet Count 68 K/uL (130-400); RDW Coefficient of Variation 18.4 % (11.5-14.5); RDW Standard Deviation 63.9 fL (36.4-46.3); Red Blood Count 2.25 M/uL (4.70-6.10)
[2024-12-29] MEDS ORDERED: MIDODRINE HCL 2.5 MG TAB PO SCH (08:00)
[2024-12-29 08:13] LABS: BUN Creatinine Ratio 15.2 (10-20); Calcium 7.5 mg/dl (8.6-10.3); Creatinine Clr Calc Pharmacy 98.5 ml/min; Magnesium 1.8 mg/dl (1.7-2.4); Potassium 2.9 mmol/L (3.5-5.1)
[2024-12-29 08:20] LABS: RBC Morphology Unremarkable
[2024-12-29] MEDS: INSULIN ASPART PER UNIT CHARGE SC SCH (08:28)
[2024-12-29] MEDS: MIDODRINE HCL 2.5 MG TAB PO SCH (08:29)
[2024-12-29] MEDS: MULTIVITAMIN TAB PO SCH (08:30)
[2024-12-29] MEDS: MAGNESIUM CHLORIDE W/CALCIUM 64MG DELAYED REL TAB PO SCH (08:30)
[2024-12-29] MEDS: allopurinoL 300 MG TAB PO SCH (08:30)
[2024-12-29] MEDS: ASCORBIC ACID 500 MG TAB PO SCH (08:30)
[2024-12-29] MEDS: rifAXIMin 550 MG TABLET PO SCH (08:30)
[2024-12-29] MEDS: TAMSULOSIN HCL 0.4 MG CAP PO SCH (08:31)
[2024-12-29] MEDS: SODIUM CHLORIDE 1 GM TABLET PO SCH (08:31)
[2024-12-29] MEDS: LACTULOSE SYRUP 30 GM/45 ML UDP PO SCH (08:31)
[2024-12-29] MEDS: POTASSIUM CHLORIDE CRTAB 20 MEQ TABCR PO STA (08:37)
[2024-12-29] MEDS: CEFEPIME 2000MG 2,000 MG/20 ML SYR IV SCH (08:38)
[2024-12-29] MEDS: LANTUS PER UNIT CHARGE SQ SCH (08:38)
--- NOTE | 2024-12-29 10:02 | Gastrointestinal Consultation ---
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 I am not 100% convinced he is bleeding as his stools were "dark brown" and not black. However, with his liver disease will proceed with EGD tomorrow t o be certain. He agrees. History of Present Illness Reason for Consultation: anemia Attending Physician: Edwin Ferreira MD History of Present Illness 59 year old man with known cirrhosis who has battled ascites over the years admitted with shortness of breath. He was found to have a hemoglobin of 6.8 and he usually runs in the mid to upper 7's. He says for the last week he has been having "dark stools". He says they are not black, just dark brown. He doesn't think the frequency has been increased either. He is being evaluated for transplant at [place]. He says he had an EGD 4-5 months ago at [facility] but he isn't certain what they found. Nobody mentioned the word "varices" to him. Currently he is feeling fine. His abdomen is not as swollen as it usually is. Allergies Allergy/AdvReac Type Severity Reaction Status Date / Time aspirin AdvReac Intermediate NOSE Verified 12/18/24 10:32 BLEEDS--IF TAKES REGULARLY salicylates AdvReac Intermediate NOSE BLEEDS Verified 12/18/24 10:32 Home Medications Medication Instructions Recorded Confirmed Type allopurinol 300 mg tablet 300 mg PO DAILY 12/29/24 12/29/24 History ascorbic acid (vitamin C) 1,000 mg 1 g PO DAILY 12/29/24 12/29/24 History tablet atorvastatin 20 mg tablet 20 mg PO DAILY 12/29/24 12/29/24 History docusate sodium 100 mg capsule 100 mg PO BID PRN Constipation 12/29/24 12/29/24 History insulin degludec 100 unit/mL (3 10 unit subcut DAILY 12/29/24 12/29/24 History mL) subcutaneous pen lactulose 10 gram/15 mL oral 45 ml PO TID 12/29/24 12/29/24 History solution magnesium chloride 64 mg 64 mg PO DAILY 12/29/24 12/29/24 History (magnesium chloride) tablet,delayed release (Mag-Delay) midodrine 2.5 mg tablet 7.5 mg PO TID 12/29/24 12/29/24 History multivitamin 1 tab PO DAILY 12/29/24 12/29/24 History omeprazole 20 mg capsule,delayed 20 mg PO DAILY 12/29/24 12/29/24 History release potassium chloride 10 mEq 20 meq PO TID 12/29/24 12/29/24 History tablet,extended release(part/cryst) rifaximin 550 mg tablet (Xifaxan) 550 mg PO BID 12/29/24 12/29/24 History sodium chloride 1,000 mg soluble 1,000 mg PO BID 12/29/24 12/29/24 History tablet tamsulosin 0.4 mg capsule 0.4 mg PO DAILY 12/29/24 12/29/24 History torsemide 20 mg tablet 20 mg PO DAILY 12/29/24 12/29/24 History Patient History Medical History Ureterolithiasis Hepatocellular carcinoma s/p IR embolization Pulmonary hypertension Diabetes mellitus NAFLD (nonalcoholic fatty liver disease) Chronic hyponatremia Dizziness r/t the cirrhosis - using a cane at this time. "if i get up to fast". S/P abdominal paracentesis Fracture of rib of right side 2013 Anaplasmosis 2020 Acute hepatic encephalopathy Cardiac murmur HX Hypertension Right rib fracture hx ~. Surgical History History of esophagogastroduodenoscopy (EGD) History of colonoscopy Family History Mother History of colonoscopy Cancer Colon Brother Family history of diabetes mellitus Brother Family history of diabetes mellitus Grandmother (Paternal) Family history of diabetes mellitus Other No family history of adverse response to anesthesia Social History Smoking Status: Former smoker Tobacco Type: Smokeless Tobacco (Dip or Chew) packs per day: 0.25; Second Hand Exposure: No; Do You Dip or Chew Tobacco: Yes; Hx Alcohol Use: No Hx Substance Use: No Preferred Language: Romansh Communication Ability: Effective Hearing Ability: Normal Paperboard Box Maker Required: No Beliefs That Will Affect Care: None marital status: Single Current Living Situation: Family Current Living Situation Comment: With brother and mother Other Information That Helps Us Care for You: No Feels Safe at Home: Yes Safety Concerns: Feels Safe At This Time Assistive Devices: Cane and Walker Review of Systems Review of Systems: All systems reviewed & are unremarkable except as noted in HPI & below Physical Exam Constitutional: + ill appearing Neck: trachea midline, no thyromegaly Respiratory: normal respiratory effort, lungs clear to auscultation Cardiovascular: RRR, no murmur, no edema Gastrointestinal (Abdomen): Inspection/Auscultation: + abdomen distended Percussion/Palpation: abdomen soft; abdomen nontender bandage over left lower abdomen Results & Data Vital Signs (Past 12 Hours) Vital Signs Temp Pulse Pulse Resp BP BP Pulse Ox 12/29/24 08:12 36.3 C L 88 19 96/57 L 99 12/29/24 02:40 36.4 C L 87 18 117/73 100 12/29/24 02:29 36.5 C 95 H 18 99/80 L 98 12/29/24 02:03 98 H 15 92/79 L 100 12/29/24 01:29 36.3 C L 92 H 14 99/55 L 98 12/29/24 00:59 36.3 C L 94 H 18 101/62 98 12/29/24 00:48 82 12/29/24 00:44 36.4 C L 90 14 82/57 L 95 12/29/24 00:26 36.4 C L 88 16 97/75 L 100 12/29/24 00:06 93 H 22 77/41 L 100 12/28/24 23:39 94 H 30 H 97/49 L 96 12/28/24 22:45 108/59 L 12/28/24 22:36 89 15 98/66 L 12/28/24 22:24 97 H 17 98/66 L 99 12/28/24 22:03 90 19 106/63 95 O2 Del Method 12/29/24 08:12 Room Air 12/29/24 02:40 Room Air 12/29/24 02:29 12/29/24 02:03 Room Air 12/29/24 01:29 12/29/24 00:59 12/29/24 00:48 12/29/24 00:44 12/29/24 00:26 12/29/24 00:06 Room Air 12/28/24 23:39 Room Air 12/28/24 22:45 12/28/24 22:36 12/28/24 22:24 12/28/24 22:03 Laboratory Results 12/29/24 12/29/24 12/29/24 Range/Units 07:32 06:43 03:10 WBC 5.60 (4.8-10.8) K/ul RBC 2.25 L (4.70-6.10) M/uL Hgb 7.7 L (14.0-18.0) g/dl Hct 22.2 L (42.0-52.0) % MCV 98.7 (80.0-100.0) fL MCH 34.2 H (25.0-34.0) pg MCHC 34.7 (32.0-36.0) g/dL RDW Std Deviation 63.9 H (36.4-46.3) fL RDW Coeff of Polo 18.4 H (11.5-14.5) % Plt Count 68 L (130-400) K/uL MPV 10.0 (9.4-12.4) fL Immature Gran % (Auto) 0.4 % Neut % (Auto) 72.4 % Lymph % (Auto) 6.8 % Logan % (Auto) 15.5 % Eos % (Auto) 3.8 % Baso % (Auto) 1.1 % Neut # (Auto) 4.06 (1.40-6.50) K/uL Lymph # (Auto) 0.38 L (1.20-3.40) K/uL Logan # (Auto) 0.87 H (0.11-0.59) K/uL Eos # (Auto) 0.21 (0.00-0.50) K/uL Baso # (Auto) 0.06 (0.00-0.20) K/uL Immature Gran # (Auto) 0.02 (0.01-0.20) K/uL RBC Morphology Unremarkable Anisocytosis Sodium 125 L (136-145) mmol/L Potassium 2.9 L (3.5-5.1) mmol/L Chloride 93 L (98-107) mmol/L Carbon Dioxide 28 (21-32) mmol/L Anion Gap 4 (3-11) BUN 15 (6-23) mg/dl Creatinine 0.99 (0.6-1.4) mg/dl Est Cr Clr Drug Dosing 98.5 ml/min eGFR 87.21 BUN/Creatinine Ratio 15.2 (10-20) Glucose 141 H (70-99(Fasting)) mg/dl POC Glucose 170 H (70-99) mg/dl Lactate 1.5 (0.4-2.0) mmol/L Calcium 7.5 L (8.6-10.3) mg/dl Magnesium 1.8 (1.7-2.4) mg/dl Total Bilirubin (0.2-1.0) mg/dl Direct Bilirubin (0-0.2) mg/dl AST (13-39) U/L ALT (7-52) U/L Alkaline Phosphatase (34-104) U/L Ammonia (18-72) umol/L Total Protein (6.0-8.3) gm/dl Albumin (3.4-5.0) gm/dl Lipase (11-82) U/L Fluid Neutrophils % % Fluid Lymphocytes % % Fluid Meso/Macro/Logan % % Fluid Comment Peritoneal Color Peritoneal Appearance Peritoneal WBC (Auto) (0-300) /ul Peritoneal RBC (Auto) /uL Peritoneal Tot Protein gm/dl Peritoneal Albumin gm/dl Peritoneal LDH U/L Peritoneal Glucose mg/dl Nasal Screen MRSA (PCR) Negative (Negative) Blood Type Antibody Screen Crossmatch 12/28/24 12/28/24 12/28/24 Range/Units 22:59 22:55 22:51 WBC (4.8-10.8) K/ul RBC (4.70-6.10) M/uL Hgb (14.0-18.0) g/dl Hct (42.0-52.0) % MCV (80.0-100.0) fL MCH (25.0-34.0) pg MCHC (32.0-36.0) g/dL RDW Std Deviation (36.4-46.3) fL RDW Coeff of Polo (11.5-14.5) % Plt Count (130-400) K/uL MPV (9.4-12.4) fL Immature Gran % (Auto) % Neut % (Auto) % Lymph % (Auto) % Logan % (Auto) % Eos % (Auto) % Baso % (Auto) % Neut # (Auto) (1.40-6.50) K/uL Lymph # (Auto) (1.20-3.40) K/uL Logan # (Auto) (0.11-0.59) K/uL Eos # (Auto) (0.00-0.50) K/uL Baso # (Auto) (0.00-0.20) K/uL Immature Gran # (Auto) (0.01-0.20) K/uL RBC Morphology Anisocytosis Sodium (136-145) mmol/L Potassium (3.5-5.1) mmol/L Chloride (98-107) mmol/L Carbon Dioxide (21-32) mmol/L Anion Gap (3-11) BUN (6-23) mg/dl Creatinine (0.6-1.4) mg/dl Est Cr Clr Drug Dosing ml/min eGFR BUN/Creatinine Ratio (10-20) Glucose (70-99(Fasting)) mg/dl POC Glucose (70-99) mg/dl Lactate 3.1 H* (0.4-2.0) mmol/L Calcium (8.6-10.3) mg/dl Magnesium (1.7-2.4) mg/dl Total Bilirubin (0.2-1.0) mg/dl Direct Bilirubin (0-0.2) mg/dl AST (13-39) U/L ALT (7-52) U/L Alkaline Phosphatase (34-104) U/L Ammonia (18-72) umol/L Total Protein (6.0-8.3) gm/dl Albumin (3.4-5.0) gm/dl Lipase (11-82) U/L Fluid Neutrophils % 6 % Fluid Lymphocytes % 19 % Fluid Meso/Macro/Logan % 75 % Fluid Comment Peritoneal Color Pale Yellow Peritoneal Appearance Clear Peritoneal WBC (Auto) 48 (0-300) /ul Peritoneal RBC (Auto) < 2000 /uL Peritoneal Tot Protein < 3.0 gm/dl Peritoneal Albumin < 1.5 gm/dl Peritoneal LDH < 25 U/L Peritoneal Glucose 200 mg/dl Nasal Screen MRSA (PCR) (Negative) Blood Type A Positive Antibody Screen NEGATIVE Crossmatch See Detail 03/01/25 Range/Units 20:44 WBC 6.57 (4.8-10.8) K/ul RBC 1.99 L (4.70-6.10) M/uL Hgb 6.8 L* (14.0-18.0) g/dl Hct 20.1 L* (42.0-52.0) % MCV 101.0 H (80.0-100.0) fL MCH 34.2 H (25.0-34.0) pg MCHC 33.8 (32.0-36.0) g/dL RDW Std Deviation 65.1 H (36.4-46.3) fL RDW Coeff of Polo 18.0 H (11.5-14.5) % Plt Count 84 L (130-400) K/uL MPV 10.3 (9.4-12.4) fL Immature Gran % (Auto) 1.5 % Neut % (Auto) 76.5 % Lymph % (Auto) 5.0 % Logan % (Auto) 14.6 % Eos % (Auto) 1.5 % Baso % (Auto) 0.9 % Neut # (Auto) 5.02 (1.40-6.50) K/uL Lymph # (Auto) 0.33 L (1.20-3.40) K/uL Logan # (Auto) 0.96 H (0.11-0.59) K/uL Eos # (Auto) 0.10 (0.00-0.50) K/uL Baso # (Auto) 0.06 (0.00-0.20) K/uL Immature Gran # (Auto) 0.10 (0.01-0.20) K/uL RBC Morphology Anisocytosis Present Sodium 127 L (136-145) mmol/L Potassium 2.8 L (3.5-5.1) mmol/L Chloride 91 L (98-107) mmol/L Carbon Dioxide 25 (21-32) mmol/L Anion Gap 11 (3-11) BUN 16 (6-23) mg/dl Creatinine 1.07 (0.6-1.4) mg/dl Est Cr Clr Drug Dosing 92.4 ml/min eGFR 79.44 BUN/Creatinine Ratio 15.0 (10-20) Glucose 193 H (70-99(Fasting)) mg/dl POC Glucose (70-99) mg/dl Lactate 4.3 H* (0.4-2.0) mmol/L Calcium 7.9 L (8.6-10.3) mg/dl Magnesium (1.7-2.4) mg/dl Total Bilirubin 3.3 H (0.2-1.0) mg/dl Direct Bilirubin 0.9 H (0-0.2) mg/dl AST 52 H (13-39) U/L ALT 39 (7-52) U/L Alkaline Phosphatase 117 H (34-104) U/L Ammonia 64.0 (18-72) umol/L Total Protein 5.3 L (6.0-8.3) gm/dl Albumin 2.4 L (3.4-5.0) gm/dl Lipase 63 (11-82) U/L Fluid Neutrophils % % Fluid Lymphocytes % % Fluid Meso/Macro/Logan % % Fluid Comment Peritoneal Color Peritoneal Appearance Peritoneal WBC (Auto) (0-300) /ul Peritoneal RBC (Auto) /uL Peritoneal Tot Protein gm/dl Peritoneal Albumin gm/dl Peritoneal LDH U/L Peritoneal Glucose mg/dl Nasal Screen MRSA (PCR) (Negative) Blood Type Antibody Screen Crossmatch Diagnostic Findings Chest X-Ray 12/28/24 20:55 Exam(s): XR CXR 1 VIEW EXAM: XR Chest, 1 View CLINICAL HISTORY: Reason for exam: SOB. TECHNIQUE: Frontal views of the chest. COMPARISON: 11/29/2024. FINDINGS: Lungs: There is increased opacity at the left lung base.. Pleural space: There is a small left pleural effusion.. No pneumothorax. Heart: The heart is normal in size.. Mediastinum: There is mild uncoiling of thoracic aorta.. Bones/joints: There are degenerative changes in the spine.. IMPRESSION: There is a small left pleural effusion with infiltrate and/or atelectasis at the left lung base.. Electronically signed by: Cody Champion MD 12/29/24 00:30 AM Chest CTA 12/29/24 00:55 EXAM: CT angio chest PE protocol CLINICAL HISTORY: PE TECHNIQUE: Contiguous 3.[address] angiographic images of the chest were acquired with the administration of intravenous contrast. Coronal and sagittal reconstructions were obtained. 98 ml opti 320 was administered for post-contrast images. One of these 3D techniques was utilized: Maximum Intensity Pixel (MIP), 3D Reconstructed Images, Volume Rendered Images, Surface Shaded Rendering. One of the following dose reduction techniques were utilized for this exam: Automated exposure control, adjustment of the mA and/or kV according to patient size, and use of iterative reconstruction. CTDI: DLP: COMPARISON: 08/30/2024. FINDINGS: Aorta: The thoracic aorta is normal in caliber. The aortic arch and descending thoracic aorta are unremarkable. Pulmonary Arteries: Pulmonary arteries are normal in size and opacification. No evidence of pulmonary embolism. No stenosis or filling defects. Superior Vena Cava (SVC) and Inferior Vena Cava (IVC): Normal opacification and caliber. No evidence of thrombus or obstruction. Mediastinum: No mediastinal mass or lymphadenopathy. Heart: Normal size and morphology of the heart. No pericardial effusion. Lungs: Moderate-sized left pleural effusion with subsegmental left lower lobe atelectasis No evidence of masses. Bones: No fractures or lytic/sclerotic lesions of the visualized bony structures. Normal alignment and bone density. abdomen: Ascites was noted. The liver is shrunken and irregular, suggesting chronic liver disease Stable coarse calcification in the right liver lobe. IMPRESSION: 1. No evidence of pulmonary embolism. 2. The rest of the findings are stable in comparison with CT on 08/30/2024. 3. Moderate-sized left pleural effusion with subsegmental left lower lobe atelectasis. 4. The liver is shrunken and irregular, suggesting chronic liver disease. 5. Ascites was noted. Electronically signed by Sheron Palomares 12-29-2024 03:57 AM
--- NOTE | 2024-12-29 10:22 | Pharmacy Report ---
Pharmacy PK ABX Note - Date of Service December 29, 2024 - Assessment and Plan Assessment 59 year old M receiving vancomycin and cefepime empirically in setting of sepsis. History of ESLD, hepatocellular carcinoma and receiving paracentesis every 5 days. Blood cultures pending. Renal function stable. Day #1 of antimicrobial therapy. Plan Vancomycin * Loading dose: 2250 mg IV x 1 * Maintenance dose: 1250 mg IV every 12 hours * Regimen is predicted to achieve target AUC/JASON of 400-600 mg/L.hr * Will obtain a level if therapy continued beyond 48h, or sooner if clinically indicated. Pharmacy will continue to follow and will adjust dose/frequency as necessary. Thank you. Pharmacy has transitioned to AUC monitoring for vancomycin. AUC/JASON is the preferred PK/PD target and is associated with decreased risk of nephrotoxicity compared to traditional trough targets.
[2024-12-29 11:04] LABS: Hematocrit (blood only) 21.4 % (42.0-52.0); Hemoglobin 7.4 g/dl (14.0-18.0)
--- NOTE | 2024-12-29 11:59 | Communication Note ---
Patient seen and examined at bedside. Patient states he has had black stool for the past few days. He states it is more of a dark brown. He does not think he has varices but he is unsure. He has had an EGD before. Discussed that GI will see him today with consideration of an EGD. He is agreeable and appreciative of the plan. Date of Service: December 29, 2024
[2024-12-29] MEDS ORDERED: VANCOMYCIN HCL 1,000 MG/270 ML BAG IV SCH (12:00)
[2024-12-29] MEDS ORDERED: VANCOMYCIN HCL 1,250 MG in SODIUM CHLORIDE 0.9% 250 ML IV SCH (14:00)
[2024-12-29] MEDS: LACTULOSE SYRUP 10 GM/15 ML BTL 960 ML PO SCH (15:49)
[2024-12-29] MEDS: oxyCODONE HCL IR 5 MG TAB (IMMEDIATE RELEASE) PO STA (15:51)
[2024-12-29] MEDS: PANTOprazole 40 MG TAB PO SCH (20:32)
[2024-12-30 07:39] LABS: Hematocrit (blood only) 21.7 % (42.0-52.0); Hemoglobin 7.3 g/dl (14.0-18.0); Mean Corpuscular Hgb Conc 33.6 g/dL (32.0-36.0); Mean Corpuscular Volume 100.9 fL (80.0-100.0); Mean Platelet Volume 10.4 fL (9.4-12.4); Platelet Count 72 K/uL (130-400); RDW Standard Deviation 68.1 fL (36.4-46.3); Red Blood Count 2.15 M/uL (4.70-6.10); White Blood Count 5.24 K/ul (4.8-10.8)
[2024-12-30 07:47] LABS: BUN Creatinine Ratio 11.1 (10-20); Creatinine Clr Calc Pharmacy 90.1 ml/min; Potassium 3.1 mmol/L (3.5-5.1)
--- NOTE | 2024-12-30 10:41 | Gastroenterology Progress Note ---
Date of Service December 30, 2024 Assessment & Plan (1) Anemia: Plan: 59 year old male with history of T2DM, hyperlipidemia, chronic idiopathic gout, HTN, moderate aortic stenosis, BPH, thrombocytopenia, GONZALES cirrhosis, HCC s/p TACE established w/ [facility] admitted w/ symptomatic anemia requiring transfusion x 1 unit who notes dark stools at home NPO EGD evaluation Trend H&H Monitor and document GI output Continue PPI therapy Continue Xifaxan, Lactulose therapy Continued management per [facility] GI/Hepatology MELD labs every 6 months ABD imaging w/ AFP every 6 months EGD every 1-2 years No ETOH No NSAIDs Avoid hepatotoxin Low NA diet, less than 2G daily Less than 2G acetaminophen containing products daily We appreciate assistance in the management of any serological abnormality and corrections to include: hemoglobin >7, INR <2, platelets >50,000, potassium levels >3.5 but <5.3, and sodium levels within 5 points of the reference range prior to endoscopic evaluation. Admission and Anticipated Discharge Date Admission Date: December 29, 2024 Supervising Physician Co-Signing Physician Notes I saw and examined this patient with our nurse practitioner and agree with her assessment and plan. Will proceed with upper endoscopy. Subjective Pt was seen and evaluated, chart reviewed. Remains NPO for EGD evaluation. Endorses very dark stools, black in appearance at home. Now seem more brown/green. No BRBPR, coffee ground emesis or hematemesis Review of Systems Review of Systems: All other findings negative except as noted in HPI. Physical Exam Constitutional: WD/WN, vitals as above Respiratory: normal respiratory effort Cardiovascular: Rate/Rhythm: regular rate and regular rhythm Gastrointestinal (Abdomen): Percussion/Palpation: abdomen soft; abdomen nontender Skin: no rashes, warm and dry Results & Data Results & Data Vital Signs (Past 12 Hours) Vital Signs Temp Pulse Resp BP Pulse Ox O2 Del Method 12/30/24 08:00 97.7 F 89 18 102/63 97 Room Air 12/30/24 02:21 97.5 F L 81 16 94/57 L 97 Room Air Laboratory Results 12/30/24 12/30/24 12/30/24 Range/Units 07:36 06:36 02:21 WBC 5.24 (4.8-10.8) K/ul RBC 2.15 L (4.70-6.10) M/uL Hgb 7.3 L (14.0-18.0) g/dl Hct 21.7 L (42.0-52.0) % MCV 100.9 H (80.0-100.0) fL MCH 34.0 (25.0-34.0) pg MCHC 33.6 (32.0-36.0) g/dL RDW Std Deviation 68.1 H (36.4-46.3) fL RDW Coeff of Polo 19.0 H (11.5-14.5) % Plt Count 72 L (130-400) K/uL MPV 10.4 (9.4-12.4) fL Sodium 129 L (136-145) mmol/L Potassium 3.1 L (3.5-5.1) mmol/L Chloride 97 L (98-107) mmol/L Carbon Dioxide 27 (21-32) mmol/L Anion Gap 5 (3-11) BUN 12 (6-23) mg/dl Creatinine 1.08 (0.6-1.4) mg/dl Est Cr Clr Drug Dosing 90.1 ml/min eGFR 78.56 BUN/Creatinine Ratio 11.1 (10-20) Glucose 108 H (70-99(Fasting)) mg/dl POC Glucose 84 162 H (70-99) mg/dl Calcium 8.0 L (8.6-10.3) mg/dl 12/29/24 12/29/24 12/29/24 Range/Units 20:28 16:27 11:26 WBC (4.8-10.8) K/ul RBC (4.70-6.10) M/uL Hgb (14.0-18.0) g/dl Hct (42.0-52.0) % MCV (80.0-100.0) fL MCH (25.0-34.0) pg MCHC (32.0-36.0) g/dL RDW Std Deviation (36.4-46.3) fL RDW Coeff of Polo (11.5-14.5) % Plt Count (130-400) K/uL MPV (9.4-12.4) fL Sodium (136-145) mmol/L Potassium (3.5-5.1) mmol/L Chloride (98-107) mmol/L Carbon Dioxide (21-32) mmol/L Anion Gap (3-11) BUN (6-23) mg/dl Creatinine (0.6-1.4) mg/dl Est Cr Clr Drug Dosing ml/min eGFR BUN/Creatinine Ratio (10-20) Glucose (70-99(Fasting)) mg/dl POC Glucose 140 H 233 H 231 H (70-99) mg/dl Calcium (8.6-10.3) mg/dl 12/29/24 Range/Units 10:44 WBC (4.8-10.8) K/ul RBC (4.70-6.10) M/uL Hgb 7.4 L (14.0-18.0) g/dl Hct 21.4 L (42.0-52.0) % MCV (80.0-100.0) fL MCH (25.0-34.0) pg MCHC (32.0-36.0) g/dL RDW Std Deviation (36.4-46.3) fL RDW Coeff of Polo (11.5-14.5) % Plt Count (130-400) K/uL MPV (9.4-12.4) fL Sodium (136-145) mmol/L Potassium (3.5-5.1) mmol/L Chloride (98-107) mmol/L Carbon Dioxide (21-32) mmol/L Anion Gap (3-11) BUN (6-23) mg/dl Creatinine (0.6-1.4) mg/dl Est Cr Clr Drug Dosing ml/min eGFR BUN/Creatinine Ratio (10-20) Glucose (70-99(Fasting)) mg/dl POC Glucose (70-99) mg/dl Calcium (8.6-10.3) mg/dl PG Care Time/CCT Total # of Minutes Spent Total Time Spent with Patient: Total time spent is greater than 50% in coordination of care (as documented) at patient's floor/unit and/or counseling patient: Coding Level of Care Code None Diagnoses Anemia D64.9
--- NOTE | 2024-12-30 11:32 | Anesthesiology Consultation ---
Date of Service December 30, 2024 Assessment & Plan (1) Encounter for pre-operative examination: Chart Review Chart Review: Acceptable Risk for Surgery and Patient NOT seen in Pre Admission Testing Consults Requested none Additional Notes anemic, s/p 1 U PRBCs History Surgery Operation Date: 12/30/24 16:30 Proposed Procedures p Esophagogastroduodenoscopy Dr. Rachel Ramos MD Height/Weight Height: 5 ft 11 in Weight: 106 kg Allergies Allergy/AdvReac Type Severity Reaction Status Date / Time aspirin AdvReac Intermediate NOSE Verified 12/18/24 10:32 BLEEDS--IF TAKES REGULARLY salicylates AdvReac Intermediate NOSE BLEEDS Verified 12/18/24 10:32 Medications Home Medications Medication Instructions Recorded Confirmed Last Taken allopurinol 300 mg tablet 300 mg PO DAILY 12/29/24 12/29/24 Unknown ascorbic acid (vitamin C) 1,000 mg 1 g PO DAILY 12/29/24 12/29/24 Unknown tablet atorvastatin 20 mg tablet 20 mg PO DAILY 12/29/24 12/29/24 Unknown docusate sodium 100 mg capsule 100 mg PO BID PRN Constipation 12/29/24 12/29/24 Unknown insulin degludec 100 unit/mL (3 10 unit subcut DAILY 12/29/24 12/29/24 Unknown mL) subcutaneous pen lactulose 10 gram/15 mL oral 45 ml PO TID 12/29/24 12/29/24 Unknown solution magnesium chloride 64 mg 64 mg PO DAILY 12/29/24 12/29/24 Unknown (magnesium chloride) tablet,delayed release (Mag-Delay) midodrine 2.5 mg tablet 7.5 mg PO TID 12/29/24 12/29/24 Unknown multivitamin 1 tab PO DAILY 12/29/24 12/29/24 Unknown omeprazole 20 mg capsule,delayed 20 mg PO DAILY 12/29/24 12/29/24 Unknown release potassium chloride 10 mEq 20 meq PO TID 12/29/24 12/29/24 Unknown tablet,extended release(part/cryst) rifaximin 550 mg tablet (Xifaxan) 550 mg PO BID 12/29/24 12/29/24 Unknown sodium chloride 1,000 mg soluble 1,000 mg PO BID 12/29/24 12/29/24 Unknown tablet tamsulosin 0.4 mg capsule 0.4 mg PO DAILY 12/29/24 12/29/24 Unknown torsemide 20 mg tablet 20 mg PO DAILY 12/29/24 12/29/24 Unknown Active Medications Generic Name Dose Route Start Last Admin Trade Name Capri MURRIETA Reason Stop Dose Admin Allopurinol 300 mg 12/29/24 09:00 12/29/24 08:30 Allopurinol 300 Mg Tab PO 01/28/25 08:59 300 mg DAILY MOODY Administration Insulin Aspart 0 units 12/29/24 07:30 12/30/24 11:29 Insulin Aspart Per Unit Charge SC 01/28/25 07:29 Not Given ACHS [facility] Insulin Glargine 5 units 12/29/24 09:00 12/30/24 11:30 Lantus Per Unit Charge SQ 01/28/25 08:59 Not Given DAILY [facility] Lactulose 30 gm 12/29/24 14:00 12/30/24 11:01 Lactulose Syrup 10 Gm/15 Ml Btl 960 Ml PO 01/28/25 13:59 Not Given TID MOODY Magnesium Chloride 64 mg 12/29/24 09:00 12/30/24 11:30 Magnesium Chloride W/Calcium 64mg Delayed Rel Tab PO 01/28/25 08:59 Not Given DAILY [facility] Midodrine 7.5 mg 12/29/24 08:00 12/30/24 11:29 Midodrine Hcl 2.5 Mg Tab PO 01/28/25 07:59 Not Given TID@0800,1200,1700 [facility] Multivitamins 1 tab 12/29/24 09:00 12/30/24 11:01 Multivitamin Tab PO 01/28/25 08:59 Not Given DAILY [facility] Pantoprazole Sodium 40 mg 12/29/24 21:00 12/30/24 11:01 Pantoprazole 40 Mg Tab PO 01/28/25 20:59 Not Given BID [facility] Rifaximin 550 mg 12/29/24 09:00 12/29/24 20:33 Rifaximin 550 Mg Tablet PO 01/28/25 08:59 550 mg BID [facility] Administration Sodium Chloride 1 gm 12/29/24 09:00 12/30/24 11:01 Sodium Chloride 1 Gm Tablet PO 01/28/25 08:59 Not Given BID MOODY Tamsulosin HCl 0.4 mg 12/29/24 09:00 12/29/24 08:31 Tamsulosin Hcl 0.4 Mg Cap PO 01/28/25 08:59 0.4 mg DAILY MOODY Administration Past Medical History Medical History Ureterolithiasis Hepatocellular carcinoma s/p IR embolization Pulmonary hypertension Diabetes mellitus NAFLD (nonalcoholic fatty liver disease) Chronic hyponatremia Dizziness r/t the cirrhosis - using a cane at this time. "if i get up to fast". S/P abdominal paracentesis Fracture of rib of right side 2013 Anaplasmosis 2020 Acute hepatic encephalopathy Cardiac murmur HX Hypertension Right rib fracture hx ~. Past Family History Family History Mother History of colonoscopy Cancer Colon Brother Family history of diabetes mellitus Brother Family history of diabetes mellitus Grandmother (Paternal) Family history of diabetes mellitus Other No family history of adverse response to anesthesia Past Surgical History Surgical History History of esophagogastroduodenoscopy (EGD) History of colonoscopy Social History Smoking Status: Former smoker Do You Dip or Chew Tobacco: Yes Hx Alcohol Use: No Hx Substance Use: No substance use type: does not use Physical Exam Vital Signs Last Vital Signs Temp 97.7 F 12/30/24 08:00 Pulse 89 12/30/24 08:00 Resp 18 12/30/24 08:00 BP 102/63 12/30/24 08:00 Pulse Ox 97 12/30/24 08:00 O2 Del Method Room Air 12/30/24 08:00 Testing Laboratory Results 12/30/24 06:36 12/30/24 06:36 Blood Type A Positive 12/28/24 22:59 Antibody Screen NEGATIVE 12/28/24 22:59 12/28/24 22:51 Aerobic Blood Culture - Preliminary Blood No growth in Aerobic bottle after 24 hours. Anaerobic Blood Culture - Final 12/28/24 22:55 Aerobic Blood Culture - Preliminary Blood No growth in Aerobic bottle after 24 hours. Anaerobic Blood Culture - Preliminary No growth in Anaerobic bottle after 24 hours. 12/30/24 12/30/24 12/30/24 11:20 07:36 02:21 POC Glucose 110 H 84 162 H Electrocardiogram Date: 12/28/24 Findings: + NSR @ prolonged QT Nonspec ST abn Echocardiogram Date: 01/11/22 EF: 65-70 LV Function: normal Other Findings: + LVH Valvular Disease: + (mild-mod) mild - mod pulm HTN
[2024-12-30] MEDS: SODIUM CHLORIDE 0.9% 500 ML IV SCH (12:28)
--- NOTE | 2024-12-30 13:14 | GI REPORT ---
[facility] Patient: SATISH HUERTA : 1965 Sex at : Male Age: 59 Years Procedure: Upper GI endoscopy Date: 12/30/2024 Attending Physician: Saad Ramos MD Referring MD: Britton Palomo Md Indications: - Suspected upper gastrointestinal bleeding Medications: Complications: Procedure: - The egd scope was introduced through the mouth and advanced to the second part of the duodenum. - The upper GI endoscopy was accomplished without difficulty. - The patient tolerated the procedure well. Findings: - The examined esophagus was normal. - Moderate portal hypertensive gastropathy was found in the entire examined stomach. - Diffuse congested mucosa, with numerous vascular sbnormalities consistent with portal duodenopathy. No active bleeding but stigmata of bleeding was found. Impression: - Normal esophagus. - Portal hypertensive gastropathy. - Congested duodenal mucosa with vascular abnormalities consistent with portal duodenopathy. - No specimens collected. Recommendation: - Consider starting a nonselective beta-laura for gastropathy and portal duodenopathy Procedure Code(s): - 64723, Esophagogastroduodenoscopy, flexible, transoral; diagnostic, including collection of specimen(s) by brushing or washing, when performed (separate procedure) Diagnosis Code(s): - K76.6, Portal hypertension - K31.89, Other diseases of stomach and duodenum CPT(R) - 2023 copyright [employer]. All Rights Reserved. The CPT codes, CCI edits and ICD codes generated are intended as suggestions and were generated based on input data. These codes are preliminary and upon resin filterer review may be revised to meet current compliance and payer requirements. The provider is responsible for the final determination of appropriate codes, and modifiers. Saad Ramos MD This document has been electronically signed. Note Initiated:12/30/2024 Note Completed:12/30/2024 1:14 PM [email or web address]\[id number]
[2024-12-30] MEDS: PROPOFOL IV EMULSION 10 MG/ML 20 ML VIAL IV ONE (14:09)
[2024-12-30] MEDS: LIDOCAINE 2% 2 ML VIAL/AMP(20MG/ML) INFIL ONE (14:09)
[2024-12-30] MEDS: LACTULOSE SYRUP 30 GM/45 ML UDP PO SCH (14:57)
--- NOTE | 2024-12-30 14:58 | Anesthesiology Progress Note ---
Date of Service December 30, 2024 Anesthesia Post Procedure Vital Signs Vital Signs: Temp Pulse Pulse Resp BP Pulse Ox O2 Del Method 12/30/24 13:42 85 16 95/58 L 96 Room Air 12/30/24 13:25 89 16 97/61 L 96 Room Air 12/30/24 13:10 93 H 16 97/52 L 93 Room Air 12/30/24 12:21 36.8 C 93 H 16 101/60 100 Room Air 12/30/24 11:36 36.6 C 70 16 113/70 96 Room Air 12/30/24 08:00 36.5 C 89 18 102/63 97 Room Air 12/30/24 02:21 36.4 C L 81 16 94/57 L 97 Room Air 12/29/24 22:19 36.4 C L 80 16 95/57 L 99 Room Air 12/29/24 21:46 79 12/29/24 19:04 36.4 C L 77 16 108/70 100 Room Air 12/29/24 15:15 36.3 C L 88 17 90/58 L 95 Room Air Transfer of Care Handoff Completed per policy Notes Mental Status: alert / awake / arousable Patient Amnestic to Procedure: Yes Nausea / Vomiting: adequately controlled Pain: adequately controlled Airway Patency, RR, SpO2: stable & adequate BP & HR: stable & adequate Hydration State: stable & adequate Anesthetic Complications: no major complications apparent
--- NOTE | 2024-12-30 15:08 | Hospitalist Progress Note ---
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 Patient states he was feeling very short of breath today. Denies any cough. No fevers. No chest pains. Denies any abdominal pain. Patient says having some black stools for about a week now. Denies any blood in the stools. Says he was not micturating much. Denies headache. Has dizziness. Vision is okay. Has some sore throat. No runny nose. No cough. Blood pressure is soft. Hemoglobin came back 6.8. Patient was recently in the hospital for leaking of the ascitic fluid from the umbilical site even though sutures were placed. Patient was transferred to [place] for placement of Pleurx catheter. But at the [facility] transplant team recommended not to place any intra-abdominal catheter under no circumstances as patient is undergoing evaluation for possible liver transplant. General surgery placed sutures and he did okay and was discharged home. Currently patient is getting paracentesis every 5 days. Diagnostic paracentesis done today in the ER unremarkable. Patient ambulates with a walker but not much as he is feeling dizzy. Lives with his brother. Shortness of breath -improved Acute Blood Loss Anemia Ascites -Hemoglobin 6.8 -Baseline recent hemoglobins ranging from 7.5-9 -Says he is having black stools for about a week -s/p 1 unit of blood -EGD unrevealing for cause of bleed Plan: -paracentesis tomorrow scheduled before discharged Gonzales liver cirrhosis -On lactulose and Xifaxan -Total bili 3.3 same as previous labs -Will hold torsemide and potassium supplements for now -Continue midodrine -Patient is getting evaluated for liver transplant Hyponatremia -On sodium tablets Moderate aortic stenosis Pulmonary hypertension Follow-up with cardiology History of hepatocellular carcinoma/liver lesions -Patient received embolization of the right lower lobe lesion in 07/2023 -Repeat MRI in 01/2024 showed treatment cavity enhancement patient subsequently treated with TACE -MRI on 11/14/2024 showed abnormalities in hepatic segment 7 and currently the plan for SBRT -Patient says plan for SBRT from January 07 Diabetes -Sliding scale Thrombocytopenia -From liver cirrhosis -Platelets 84 History of gout -Allopurinol BPH -On Flomax -Monitor for urinary retention Hyperlipidemia -On Lipitor DVT prophylaxis SCDs Feeding/fluids: regular Analgesia: tylenol 500 q6hr prn Sedation: na Thromboprophylaxis: SCD Head up position: na Ulcer prophylaxis: protonix Glycemic control: insulin protocol Spontaneous breathing trial: na Bowel care: laculose Indwelling catheter removal: na Deescalation of antibiotics: na I spent a total of 45 minutes in direct patient care, including [id number] time with the patient and/or family, reviewing medical records, ordering and reviewing diagnostic tests, and coordinating care with other healthcare providers. This time includes: history taking, physical examination, medical decision making, counseling, ECG interpretation, imaging interpretation, lab interpretation, orders, and education, excluding time spent in the performance of separately billed services. Admission and Anticipated Discharge Date Admission Date: December 29, 2024 Subjective Patient seen and examined at bedside. Doing well today, looking forward to EGD to determine if there is source of bleeding. Review of Systems Review of Systems: CONSTITUTIONAL: Patient denies fevers, chills, sweats and weight changes. EYES: Patient denies any visual symptoms. EARS, NOSE, AND THROAT: No difficulties with hearing. No symptoms of rhinitis or sore throat. CARDIOVASCULAR: Patient denies chest pains, palpitations, orthopnea and paroxysmal nocturnal dyspnea. RESPIRATORY: No dyspnea on exertion, no wheezing or cough. GI: No nausea, vomiting, diarrhea, constipation, abdominal pain, hematochezia or melena. : No urinary hesitancy or dribbling. No nocturia or urinary frequency. No abnormal urethral discharge. MUSCULOSKELETAL: No myalgias or arthralgias. NEUROLOGIC: No chronic headaches, no seizures. Patient denies numbness, tingling or weakness. PSYCHIATRIC: Patient denies problems with mood disturbance. No problems with anxiety. ENDOCRINE: No excessive urination or excessive thirst. DERMATOLOGIC: Patient denies any rashes or skin changes. Physical Exam Physical Exam: Gen: A&O 3 NAD HEENT: NCAT, EOMI, not icteric. External ears normal. No rhinorrhea. Moist mucous membranes. Neck: Supple, full range of motion, no observable masses, No meningeal sign. Lungs: No Respiratory distress. CV: RRR, no edema. Abdomen: Soft, nondistended, No rebound tenderness. MSK: No joint swelling, no redness. Skin: No rashes, petechiae, lesions. Normal color per patient. Neuro: Normal Gait, Grossly intact. Psych: Appropriate for situation. Results & Data Results & Data Vital Signs (Past 12 Hours) Vital Signs Temp Pulse Resp BP Pulse Ox O2 Del Method 12/30/24 13:42 85 16 95/58 L 96 Room Air 12/30/24 13:25 89 16 97/61 L 96 Room Air 12/30/24 13:10 93 H 16 97/52 L 93 Room Air 12/30/24 12:21 36.8 C 93 H 16 101/60 100 Room Air 12/30/24 11:36 36.6 C 70 16 113/70 96 Room Air 12/30/24 08:00 36.5 C 89 18 102/63 97 Room Air Laboratory Results -personally reviewed, stable Hgb Medications Administered Allopurinol (Allopurinol 300 Mg Tab) 300 mg PO DAILY MOODY Stop: 01/28/25 08:59 Last Admin: 12/30/24 14:57 Dose: 300 mg Documented By: Admin: 12/29/24 08:30 Dose: 300 mg Documented By: YENNI Sodium Chloride (Nss) 500 mls @ 15 mls/hr IV .Q24H MOODY Stop: 12/31/24 07:29 Last Infusion: 12/30/24 12:28 Dose: Infused Documented By: Admin: 12/30/24 12:28 Dose: 15 mls/hr Documented By: STEVEN Insulin Aspart (Insulin Aspart Per Unit Charge) 0 units SC ACHS MOODY Stop: 01/28/25 07:29 Last Admin: 12/30/24 14:57 Dose: Not Given Documented By: Admin: 12/30/24 11:29 Dose: Not Given Documented By: Admin: 12/30/24 07:42 Dose: Not Given Documented By: Admin: 12/29/24 20:29 Dose: Not Given Documented By: [facility] Admin: 12/29/24 17:09 Dose: 3 units Documented By: YENNI Co-signed By: ODILON Admin: 12/29/24 11:59 Dose: 3 units Documented By: YENNI Co-signed By: ODILON Admin: 12/29/24 08:28 Dose: Not Given Documented By: YENNI Insulin Glargine (Lantus Per Unit Charge) 5 units SQ DAILY MOODY Stop: 01/28/25 08:59 Last Admin: 12/30/24 11:30 Dose: Not Given Documented By: Admin: 12/29/24 08:38 Dose: 5 units Documented By: YENNI Co-signed By: ODILON Lactulose (Lactulose Syrup 30 Gm/45 Ml Udp) 30 gm PO TID MOODY Stop: 01/29/25 13:59 Last Admin: 12/30/24 14:57 Dose: Not Given Documented By: EMILY Magnesium Chloride (Magnesium Chloride W/Calcium 64mg Delayed Rel Tab) 64 mg PO DAILY MOODY Stop: 01/28/25 08:59 Last Admin: 12/30/24 11:30 Dose: Not Given Documented By: Admin: 12/29/24 08:30 Dose: 64 mg Documented By: YENNI Midodrine (Midodrine Hcl 2.5 Mg Tab) 7.5 mg PO TID@0800,1200,1700 MOODY Stop: 01/28/25 07:59 Last Admin: 12/30/24 14:57 Dose: 7.5 mg Documented By: Admin: 12/30/24 11:29 Dose: Not Given Documented By: Admin: 12/30/24 09:54 Dose: Not Given Documented By: Admin: 12/29/24 17:54 Dose: 7.5 mg Documented By: Admin: 12/29/24 12:00 Dose: 7.5 mg Documented By: Admin: 12/29/24 08:29 Dose: 7.5 mg Documented By: YENNI Multivitamins (Multivitamin Tab) 1 tab PO DAILY MOODY Stop: 01/28/25 08:59 Last Admin: 12/30/24 11:01 Dose: Not Given Documented By: Admin: 12/29/24 08:30 Dose: 1 tab Documented By: YENNI Pantoprazole Sodium (Pantoprazole 40 Mg Tab) 40 mg PO BID MOODY Stop: 01/28/25 20:59 Last Admin: 12/30/24 11:01 Dose: Not Given Documented By: Admin: 12/29/24 20:32 Dose: 40 mg Documented By: [facility] Rifaximin (Rifaximin 550 Mg Tablet) 550 mg PO BID MOODY Stop: 01/28/25 08:59 Last Admin: 12/30/24 14:57 Dose: 550 mg Documented By: Admin: 12/29/24 20:33 Dose: 550 mg Documented By: Admin: 12/29/24 08:30 Dose: 550 mg Documented By: YENNI Sodium Chloride (Sodium Chloride 1 Gm Tablet) 1 gm PO BID MOODY Stop: 01/28/25 08:59 Last Admin: 12/30/24 11:01 Dose: Not Given Documented By: Admin: 12/29/24 20:33 Dose: 1 gm Documented By: [facility] Admin: 12/29/24 08:31 Dose: 1 gm Documented By: YENNI Tamsulosin HCl (Tamsulosin Hcl 0.4 Mg Cap) 0.4 mg PO DAILY MOODY Stop: 01/28/25 08:59 Last Admin: 12/30/24 14:57 Dose: 0.4 mg Documented By: Admin: 12/29/24 08:31 Dose: 0.4 mg Documented By: YENNI
[2024-12-30] MEDS ORDERED: ACETAMINOPHEN 500 MG TAB PO PRN (15:37)
--- NOTE | 2024-12-30 15:53 | Electrocardiogram Report ---
Test Reason : Blood Pressure : */* mmHG Vent. Rate : 93 BPM Atrial Rate : 93 BPM P-R Int : 156 ms QRS Dur : 88 ms QT Int : 410 ms P-R-T Axes : 53 38 62 degrees QTcB Int : 509 ms Poor data quality, interpretation may be adversely affected Normal sinus rhythm Nonspecific ST and T wave abnormality Prolonged QT Abnormal ECG When compared with ECG of 30-Aug-2024 18:54, No significant change was found Confirmed by Alvaro Rock ([id number]) on 12/30/2024 3:53:03 PM Referred By: REFERRED SELF Confirmed By: Alvaro Rock
--- NOTE | 2024-12-30 15:54 | Electrocardiogram Report ---
Test Reason : Blood Pressure : */* mmHG Vent. Rate : 93 BPM Atrial Rate : 93 BPM P-R Int : 162 ms QRS Dur : 104 ms QT Int : 438 ms P-R-T Axes : 76 50 77 degrees QTcB Int : 544 ms Normal sinus rhythm Nonspecific ST abnormality Prolonged QT Abnormal ECG When compared with ECG of 28-Dec-2024 20:35, (unconfirmed) No significant change was found Confirmed by Alvaro Rock ([id number]) on 12/30/2024 3:54:44 PM Referred By: REFERRED SELF Confirmed By: Alvaro Rock
[2024-12-31 07:17] LABS: BUN Creatinine Ratio 11.3 (10-20); Calcium 7.7 mg/dl (8.6-10.3); Creatinine Clr Calc Pharmacy 92.2 ml/min; Potassium 3.2 mmol/L (3.5-5.1)
[2024-12-31 07:38] LABS: Hematocrit (blood only) 19.9 % (42.0-52.0); Hemoglobin 6.9 g/dl (14.0-18.0); Mean Corpuscular Hemoglobin 35.4 pg (25.0-34.0); Mean Corpuscular Hgb Conc 34.7 g/dL (32.0-36.0); Mean Corpuscular Volume 102.1 fL (80.0-100.0); Mean Platelet Volume 10.1 fL (9.4-12.4); Platelet Count 70 K/uL (130-400); RDW Coefficient of Variation 18.1 % (11.5-14.5); RDW Standard Deviation 65.2 fL (36.4-46.3); Red Blood Count 1.95 M/uL (4.70-6.10); White Blood Count 5.44 K/ul (4.8-10.8)
[2024-12-31 08:37] LABS: Hematocrit (blood only) 20.5 % (42.0-52.0); Hemoglobin 7.1 g/dl (14.0-18.0); Mean Corpuscular Hemoglobin 35.1 pg (25.0-34.0); Mean Corpuscular Hgb Conc 34.6 g/dL (32.0-36.0); Mean Corpuscular Volume 101.5 fL (80.0-100.0); Mean Platelet Volume 10.2 fL (9.4-12.4); Platelet Count 73 K/uL (130-400); RDW Coefficient of Variation 18.8 % (11.5-14.5); RDW Standard Deviation 67.5 fL (36.4-46.3); Red Blood Count 2.02 M/uL (4.70-6.10); White Blood Count 5.18 K/ul (4.8-10.8)
--- NOTE | 2024-12-31 09:42 | Gastroenterology Progress Note ---
Date of Service December 31, 2024 Assessment & Plan (1) Anemia: Plan: 59 year old male with history of T2DM, hyperlipidemia, chronic idiopathic gout, HTN, moderate aortic stenosis, BPH, thrombocytopenia, GONZALES cirrhosis, MELD 24, HCC s/p TACE established w/ [facility] admitted w/ symptomatic anemia requiring transfusion x 1 unit who notes dark stools at home. S/P EGD w/ portal hypertensive gastropathy and portal duodenopathy. Low NA diet as tolerated Proceed with scheduled paracentesis Consider starting Nadolol 20 mg this admission - Titrate to goal HR around 60 - If systolic BP is <90 mm Hg, reduce dose or discontinue Trend H&H Monitor and document GI output Continue PPI therapy Continue Xifaxan, Lactulose therapy Continue home dosing of torsemide Continue home dosing of midodrine Continued management per [facility] GI/Hepatology MELD labs every 6 months ABD imaging w/ AFP every 6 months EGD every 1-2 years No ETOH No NSAIDs Avoid hepatotoxin Low NA diet, less than 2G daily Less than 2G acetaminophen containing products daily Recall GI as needed. I spent a total of 40 minutes on the date of service in review of patient's record, and previously obtained information in person and appropriate medical visit, discussion and education of plan, with patient and/or caregiver, placing orders for tests/referral/procedures as medically necessary and documentation of pertinent clinical information in patient's medical records for their visit today. Admission and Anticipated Discharge Date Admission Date: December 29, 2024 Supervising Physician Co-Signing Physician Notes I saw and examined this patient with our nurse practitioner and agree with her assessment and plan. Persistent anemia suspect related to chronic blood loss due to portal gastropathy and duodenopathy. Patient reluctant to try nadolol for fear of possibly falling or having syncope. Recommend a trial of a low-dose of nadolol starting at 10 mg daily to see how it is tolerated. Goal is to reduce heart rate by 15 to 20% of baseline. Await paracentesis results. Subjective Pt was seen and evaluated, chart reviewed. Case discussed at bedside w/ primary service. Reports abd distention - awaiting paracentesis. Discussed EGD results, recommendation of BB. He recalls he was on a BB in past but this was for BP control. He is unsure of dose or name. No black or bloody stools. Review of Systems Review of Systems: All other findings negative except as noted in HPI. Physical Exam Constitutional: WD/WN, vitals as above Respiratory: normal respiratory effort Cardiovascular: Rate/Rhythm: regular rate no lower extremity edema Gastrointestinal (Abdomen): + nontense large ascites Skin: no rashes, warm and dry Results & Data Results & Data Vital Signs (Past 12 Hours) Vital Signs Temp Pulse Pulse Resp BP Pulse Ox O2 Del Method 12/31/24 08:00 98.1 F 90 18 93/72 L 97 Room Air 12/31/24 02:46 97.9 F 98 H 20 100/64 99 Room Air 12/30/24 23:50 88 12/30/24 23:16 98.2 F 69 16 98/68 L 93 Room Air Laboratory Results 12/31/24 12/31/24 12/31/24 Range/Units 08:01 07:20 05:50 WBC 5.18 5.44 (4.8-10.8) K/ul RBC 2.02 L 1.95 L (4.70-6.10) M/uL Hgb 7.1 L 6.9 L* (14.0-18.0) g/dl Hct 20.5 L* 19.9 L* (42.0-52.0) % MCV 101.5 H 102.1 H (80.0-100.0) fL MCH 35.1 H 35.4 H (25.0-34.0) pg MCHC 34.6 34.7 (32.0-36.0) g/dL RDW Std Deviation 67.5 H 65.2 H (36.4-46.3) fL RDW Coeff of Polo 18.8 H 18.1 H (11.5-14.5) % Plt Count 73 L 70 L (130-400) K/uL MPV 10.2 10.1 (9.4-12.4) fL Sodium 126 L (136-145) mmol/L Potassium 3.2 L (3.5-5.1) mmol/L Chloride 98 (98-107) mmol/L Carbon Dioxide 28 (21-32) mmol/L Anion Gap 0 L (3-11) BUN 12 (6-23) mg/dl Creatinine 1.06 (0.6-1.4) mg/dl Est Cr Clr Drug Dosing 92.2 ml/min eGFR 80.34 BUN/Creatinine Ratio 11.3 (10-20) Glucose 144 H (70-99(Fasting)) mg/dl POC Glucose 164 H (70-99) mg/dl Calcium 7.7 L (8.6-10.3) mg/dl 12/31/24 12/30/24 12/30/24 Range/Units 03:04 20:21 20:20 WBC (4.8-10.8) K/ul RBC (4.70-6.10) M/uL Hgb (14.0-18.0) g/dl Hct (42.0-52.0) % MCV (80.0-100.0) fL MCH (25.0-34.0) pg MCHC (32.0-36.0) g/dL RDW Std Deviation (36.4-46.3) fL RDW Coeff of Polo (11.5-14.5) % Plt Count (130-400) K/uL MPV (9.4-12.4) fL Sodium (136-145) mmol/L Potassium (3.5-5.1) mmol/L Chloride (98-107) mmol/L Carbon Dioxide (21-32) mmol/L Anion Gap (3-11) BUN (6-23) mg/dl Creatinine (0.6-1.4) mg/dl Est Cr Clr Drug Dosing ml/min eGFR BUN/Creatinine Ratio (10-20) Glucose (70-99(Fasting)) mg/dl POC Glucose 112 H 334 H* 333 H* (70-99) mg/dl Calcium (8.6-10.3) mg/dl 12/30/24 12/30/24 Range/Units 14:55 11:20 WBC (4.8-10.8) K/ul RBC (4.70-6.10) M/uL Hgb (14.0-18.0) g/dl Hct (42.0-52.0) % MCV (80.0-100.0) fL MCH (25.0-34.0) pg MCHC (32.0-36.0) g/dL RDW Std Deviation (36.4-46.3) fL RDW Coeff of Polo (11.5-14.5) % Plt Count (130-400) K/uL MPV (9.4-12.4) fL Sodium (136-145) mmol/L Potassium (3.5-5.1) mmol/L Chloride (98-107) mmol/L Carbon Dioxide (21-32) mmol/L Anion Gap (3-11) BUN (6-23) mg/dl Creatinine (0.6-1.4) mg/dl Est Cr Clr Drug Dosing ml/min eGFR BUN/Creatinine Ratio (10-20) Glucose (70-99(Fasting)) mg/dl POC Glucose 112 H 110 H (70-99) mg/dl Calcium (8.6-10.3) mg/dl PG Care Time/CCT Total # of Minutes Spent Total Time Spent with Patient: Total time spent is greater than 50% in coordination of care (as documented) at patient's floor/unit and/or counseling patient: Coding Level of Care Code 84086 SUB INP/OBS CARE 2/35MIN Diagnoses Anemia D64.9
[2024-12-31 10:49] LABS: Hematocrit (blood only) 20.4 % (42.0-52.0); Hemoglobin 6.8 g/dl (14.0-18.0); Mean Corpuscular Hemoglobin 34.2 pg (25.0-34.0); Mean Corpuscular Hgb Conc 33.3 g/dL (32.0-36.0); Mean Corpuscular Volume 102.5 fL (80.0-100.0); Mean Platelet Volume 10.2 fL (9.4-12.4); Platelet Count 67 K/uL (130-400); RDW Coefficient of Variation 19.1 % (11.5-14.5); RDW Standard Deviation 68.4 fL (36.4-46.3); Red Blood Count 1.99 M/uL (4.70-6.10); White Blood Count 4.53 K/ul (4.8-10.8)
[2024-12-31] MEDS ORDERED: SODIUM CHLORIDE 0.9% 100 ML IV PRN (11:32)
[2024-12-31] MEDS ORDERED: SODIUM CHLORIDE 0.9% 50 ML IV PRN (11:32)
[2024-12-31] MEDS: POTASSIUM CHLORIDE CRTAB 20 MEQ TABCR PO STA ×2 (11:44→17:25)
[2024-12-31 12:41] LABS: Albumin Peritoneal Fluid < 1.5 gm/dl; Total Protein Peritoneal Fluid < 3.0 gm/dl
--- NOTE | 2024-12-31 12:45 | Ultrasound Report ---
ULTRASOUND-GUIDED PARACENTESIS CLINICAL HISTORY: Ascites PROCEDURE: Procedure and risks were explained. Informed consent was obtained. A final timeout was com pleted. A pocket of ascites was identified in the left lower quadrant. The left lower quadrant was pr epped and draped in sterile fashion. 1% lidocaine was utilized for skin anesthesia. Utilizing ultrasound guidance, a 5 [place] safety centesis catheter was advanced into the pocket of as cites. Ultrasound image was obtained. A total of 7L of yellow ascites fluid was removed and discarded . The catheter was removed and Band-Aid applied. The patient tolerated the procedure well. Vital sign s will be monitored postprocedure. IMPRESSION: Ultrasound-guided paracentesis as above. Performed, dictated, and signed by Maximo Moore PA-C; to be co-signed by Dr. Issac Rankin. Electronically signed by: Issac Rankin M.D. 12/31/2024 2:22 PM
[2024-12-31 13:34] LABS: Appearance Peritoneal Fluid Clear; Basophils, Fluid 1 %; Color Peritoneal Fluid Pale Yellow; Lymphocytes, Fluid 24 %; Mono,Macrophage,Mesothelial 66 %; Neutrophils, Fluid 9 %; RBC Peritoneal Fluid Auto < 2000 /uL; WBC Peritoneal Fluid Auto 43 /ul (0-300)
[2024-12-31] MEDS: oxyCODONE HCL IR 5 MG TAB (IMMEDIATE RELEASE) PO STA (13:34)
[2024-12-31 15:23] LABS: Albumin Globulin Ratio 0.8 (0.9-2); Albumin Level 2.1 gm/dl (3.4-5.0); BUN Creatinine Ratio 10.9 (10-20); Bilirubin,Total 2.6 mg/dl (0.2-1.0); Calcium 7.8 mg/dl (8.6-10.3); Creatinine Clr Calc Pharmacy 96.7 ml/min; Globulin 2.7 gm/dl (2.5-4.0); Potassium 3.2 mmol/L (3.5-5.1); Total Protein 4.8 gm/dl (6.0-8.3)
--- NOTE | 2024-12-31 16:35 | Hospitalist Progress Note ---
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 Patient states he was feeling very short of breath today. Denies any cough. No fevers. No chest pains. Denies any abdominal pain. Patient says having some black stools for about a week now. Denies any blood in the stools. Says he was not micturating much. Denies headache. Has dizziness. Vision is okay. Has some sore throat. No runny nose. No cough. Blood pressure is soft. Hemoglobin came back 6.8. Patient was recently in the hospital for leaking of the ascitic fluid from the umbilical site even though sutures were placed. Patient was transferred to [place] for placement of Pleurx catheter. But at the [facility] transplant team recommended not to place any intra-abdominal catheter under no circumstances as patient is undergoing evaluation for possible liver transplant. General surgery placed sutures and he did okay and was discharged home. Currently patient is getting paracentesis every 5 days. Diagnostic paracentesis done today in the ER unremarkable. Patient ambulates with a walker but not much as he is feeling dizzy. Lives with his brother. Shortness of breath -improved Acute Blood Loss Anemia Ascites -Hemoglobin 6.8 -Baseline recent hemoglobins ranging from 7.5-9 -Says he is having black stools for about a week -s/p 1 unit of blood -EGD unrevealing for cause of bleed -s/p paracentesis Plan: -transfuse one unit of blood today, recheck after Chronic Hypokalemia -replenish as needed Gonzales liver cirrhosis -On lactulose and Xifaxan -Total bili 3.3 same as previous labs -Will hold torsemide and potassium supplements for now -Continue midodrine -Patient is getting evaluated for liver transplant Hyponatremia -On sodium tablets Moderate aortic stenosis Pulmonary hypertension Follow-up with cardiology History of hepatocellular carcinoma/liver lesions -Patient received embolization of the right lower lobe lesion in 07/2023 -Repeat MRI in 01/2024 showed treatment cavity enhancement patient subsequently treated with TACE -MRI on 11/14/2024 showed abnormalities in hepatic segment 7 and currently the plan for SBRT -Patient says plan for SBRT from January 07 Diabetes -Sliding scale Thrombocytopenia -From liver cirrhosis -Platelets 84 History of gout -Allopurinol BPH -On Flomax -Monitor for urinary retention Hyperlipidemia -On Lipitor DVT prophylaxis SCDs Feeding/fluids: regular Analgesia: tylenol 500 q6hr prn Sedation: na Thromboprophylaxis: SCD Head up position: na Ulcer prophylaxis: protonix Glycemic control: insulin protocol Spontaneous breathing trial: na Bowel care: laculose Indwelling catheter removal: na Deescalation of antibiotics: na I spent a total of 55 minutes in direct patient care, including [id number] time with the patient and/or family, reviewing medical records, ordering and reviewing diagnostic tests, and coordinating care with other healthcare providers. This time includes: history taking, physical examination, medical decision making, counseling, ECG interpretation, imaging interpretation, lab interpretation, orders, and education, excluding time spent in the performance of separately billed services. Admission and Anticipated Discharge Date Admission Date: December 29, 2024 Subjective Patient seen and examined at bedside. Mr. Spencer is doing well today. Wants to go home, but ok with staying another night for blood. Shared decision making with patient, GI recommending nadolol, however his BP runs very low and last time he was on a beta laura he ended up in the hospital with syncope. Risks and benefits explained at length. He would like to discuss with his outpatient GI doctor first. Review of Systems Review of Systems: CONSTITUTIONAL: Patient denies fevers, chills, sweats and weight changes. EYES: Patient denies any visual symptoms. EARS, NOSE, AND THROAT: No difficulties with hearing. No symptoms of rhinitis or sore throat. CARDIOVASCULAR: Patient denies chest pains, palpitations, orthopnea and paroxysmal nocturnal dyspnea. RESPIRATORY: No dyspnea on exertion, no wheezing or cough. GI: No nausea, vomiting, diarrhea, constipation, abdominal pain, hematochezia or melena. : No urinary hesitancy or dribbling. No nocturia or urinary frequency. No abnormal urethral discharge. MUSCULOSKELETAL: No myalgias or arthralgias. NEUROLOGIC: No chronic headaches, no seizures. Patient denies numbness, tingling or weakness. PSYCHIATRIC: Patient denies problems with mood disturbance. No problems with anxiety. ENDOCRINE: No excessive urination or excessive thirst. DERMATOLOGIC: Patient denies any rashes or skin changes. Physical Exam Physical Exam: Gen: A&O 3 NAD HEENT: NCAT, EOMI, not icteric. External ears normal. No rhinorrhea. Moist mucous membranes. Neck: Supple, full range of motion, no observable masses, No meningeal sign. Lungs: No Respiratory distress. CV: RRR, no edema. Abdomen: Soft, nondistended, No rebound tenderness. MSK: No joint swelling, no redness. Skin: No rashes, petechiae, lesions. Normal color per patient. Neuro: Normal Gait, Grossly intact. Psych: Appropriate for situation. Results & Data Results & Data Vital Signs (Past 12 Hours) Vital Signs Temp Pulse Pulse Resp BP BP Pulse Ox 12/31/24 15:55 36.5 C 91 H 17 91/53 L 100 12/31/24 15:25 36.4 C L 97 H 20 91/57 L 99 12/31/24 15:10 36.4 C L 95 H 18 93/54 L 99 12/31/24 14:49 36.5 C 96 H 18 91/51 L 99 12/31/24 13:58 99 H 12/31/24 10:30 12/31/24 08:00 92 H 12/31/24 08:00 36.7 C 90 18 93/72 L 97 O2 Del Method 12/31/24 15:55 12/31/24 15:25 12/31/24 15:10 12/31/24 14:49 12/31/24 13:58 12/31/24 10:30 Room Air 12/31/24 08:00 12/31/24 08:00 Room Air Laboratory Results -personally reviewed, Hgb of 6.8 likely in setting of hemodilution and destruction via cirrhosis, chronic hypokalemia noted
[2024-12-31] MEDS: POTASSIUM CHLORIDE / WTR 10 MEQ/100 ML PLCT IV SCH (17:52)
[2025-01-01 07:09] LABS: Hematocrit (blood only) 22.8 % (42.0-52.0); Hemoglobin 7.7 g/dl (14.0-18.0); Mean Corpuscular Hemoglobin 33.2 pg (25.0-34.0); Mean Corpuscular Hgb Conc 33.8 g/dL (32.0-36.0); Mean Corpuscular Volume 98.3 fL (80.0-100.0); Mean Platelet Volume 10.4 fL (9.4-12.4); Platelet Count 63 K/uL (130-400); RDW Coefficient of Variation 19.9 % (11.5-14.5); RDW Standard Deviation 69.5 fL (36.4-46.3); Red Blood Count 2.32 M/uL (4.70-6.10); White Blood Count 4.96 K/ul (4.8-10.8)
[2025-01-01 07:24] LABS: BUN Creatinine Ratio 10.5 (10-20); Calcium 7.6 mg/dl (8.6-10.3); Creatinine Clr Calc Pharmacy 113.5 ml/min; Potassium 4.6 mmol/L (3.5-5.1)
--- NOTE | 2025-01-01 08:58 | Gastroenterology Progress Note ---
Date of Service January 01, 2025 Assessment & Plan (1) Anemia: Plan: 59 year old male with history of T2DM, hyperlipidemia, chronic idiopathic gout, HTN, moderate aortic stenosis, BPH, thrombocytopenia, GONZALES cirrhosis, MELD 24, HCC s/p TACE established w/ [facility] admitted w/ symptomatic anemia requiring transfusion x 1 unit who notes dark stools at home. S/P EGD w/ portal hypertensive gastropathy and portal duodenopathy. Low NA diet as tolerated Will defer BB or Octreotide to OP GI/Hepatolgoy team Trend H&H Monitor and document GI output Continue PPI therapy Continue Xifaxan, Lactulose therapy Continue home dosing of torsemide Continue home dosing of midodrine Continued management per [facility] GI/Hepatology MELD labs every 6 months ABD imaging w/ AFP every 6 months EGD every 1-2 years No ETOH No NSAIDs Avoid hepatotoxin Low NA diet, less than 2G daily Less than 2G acetaminophen containing products daily Recall GI as needed. I spent a total of 40 minutes on the date of service in review of patient's record, and previously obtained information in person and appropriate medical visit, discussion and education of plan, with patient and/or caregiver, placing orders for tests/referral/procedures as medically necessary and documentation of pertinent clinical information in patient's medical records for their visit today. Admission and Anticipated Discharge Date Admission Date: December 29, 2024 Supervising Physician Co-Signing Physician Notes I saw and examined this patient with our nurse practitioner and agree with her assessment and plan. Subjective Pt was seen and evaluated, chart reviewed. No gastrointestinal concerns this AM. S//P large volume paracentesis. Preliminary fluid studies negative. He remains hesitant to start BB. Review of Systems Review of Systems: All other findings negative except as noted in HPI. Physical Exam Constitutional: WD/WN, vitals as above Respiratory: normal respiratory effort, lungs clear to auscultation Cardiovascular: Rate/Rhythm: regular rate and regular rhythm Gastrointestinal (Abdomen): normal bowel sounds, soft, nontender, no hepatosplenomegaly Skin: no rashes, warm and dry Results & Data Results & Data Vital Signs (Past 12 Hours) Vital Signs Temp Pulse Pulse Resp BP Pulse Ox O2 Del Method 01/01/25 07:23 97.9 F 82 18 95/58 L 99 Room Air 01/01/25 07:22 Room Air 01/01/25 07:12 77 03/05/25 02:27 97.9 F 94 H 16 93/53 L 97 Room Air 12/31/24 22:41 98.1 F 89 20 88/56 L 97 Room Air 12/31/24 22:02 89 Laboratory Results 01/01/25 01/01/25 12/31/24 Range/Units 07:26 06:38 Unknown WBC 4.96 (4.8-10.8) K/ul RBC 2.32 L (4.70-6.10) M/uL Hgb 7.7 L (14.0-18.0) g/dl Hct 22.8 L (42.0-52.0) % MCV 98.3 (80.0-100.0) fL MCH 33.2 (25.0-34.0) pg MCHC 33.8 (32.0-36.0) g/dL RDW Std Deviation 69.5 H (36.4-46.3) fL RDW Coeff of Polo 19.9 H (11.5-14.5) % Plt Count 63 L (130-400) K/uL MPV 10.4 (9.4-12.4) fL Sodium 123 L (136-145) mmol/L Potassium 4.6 D (3.5-5.1) mmol/L Chloride 97 L (98-107) mmol/L Carbon Dioxide 28 (21-32) mmol/L Anion Gap -2 L (3-11) BUN 9 (6-23) mg/dl Creatinine 0.86 (0.6-1.4) mg/dl Est Cr Clr Drug Dosing 113.5 ml/min eGFR 99.13 BUN/Creatinine Ratio 10.5 (10-20) Glucose 197 H (70-99(Fasting)) mg/dl POC Glucose 193 H (70-99) mg/dl Calcium 7.6 L (8.6-10.3) mg/dl Magnesium (1.7-2.4) mg/dl Total Bilirubin (0.2-1.0) mg/dl AST (13-39) U/L ALT (7-52) U/L Alkaline Phosphatase (34-104) U/L Total Protein (6.0-8.3) gm/dl Albumin (3.4-5.0) gm/dl Globulin (2.5-4.0) gm/dl Albumin/Globulin Ratio (0.9-2) Fluid Neutrophils % 9 % Fluid Lymphocytes % 24 % Fluid Basophils % 1 % Fluid Meso/Macro/Woods % 66 % Fluid Comment Peritoneal Color Pale Yellow Peritoneal Appearance Clear Peritoneal WBC (Auto) 43 (0-300) /ul Peritoneal RBC (Auto) < 2000 /uL Peritoneal Tot Protein < 3.0 gm/dl Peritoneal Albumin < 1.5 gm/dl Blood Type Antibody Screen Crossmatch 12/31/24 12/31/24 12/31/24 Range/Units 20:28 17:02 16:24 WBC (4.8-10.8) K/ul RBC (4.70-6.10) M/uL Hgb (14.0-18.0) g/dl Hct (42.0-52.0) % MCV (80.0-100.0) fL MCH (25.0-34.0) pg MCHC (32.0-36.0) g/dL RDW Std Deviation (36.4-46.3) fL RDW Coeff of Polo (11.5-14.5) % Plt Count (130-400) K/uL MPV (9.4-12.4) fL Sodium (136-145) mmol/L Potassium (3.5-5.1) mmol/L Chloride (98-107) mmol/L Carbon Dioxide (21-32) mmol/L Anion Gap (3-11) BUN (6-23) mg/dl Creatinine (0.6-1.4) mg/dl Est Cr Clr Drug Dosing ml/min eGFR BUN/Creatinine Ratio (10-20) Glucose (70-99(Fasting)) mg/dl POC Glucose 170 H 194 H (70-99) mg/dl Calcium (8.6-10.3) mg/dl Magnesium 1.9 (1.7-2.4) mg/dl Total Bilirubin (0.2-1.0) mg/dl AST (13-39) U/L ALT (7-52) U/L Alkaline Phosphatase (34-104) U/L Total Protein (6.0-8.3) gm/dl Albumin (3.4-5.0) gm/dl Globulin (2.5-4.0) gm/dl Albumin/Globulin Ratio (0.9-2) Fluid Neutrophils % % Fluid Lymphocytes % % Fluid Basophils % % Fluid Meso/Macro/Woods % % Fluid Comment Peritoneal Color Peritoneal Appearance Peritoneal WBC (Auto) (0-300) /ul Peritoneal RBC (Auto) /uL Peritoneal Tot Protein gm/dl Peritoneal Albumin gm/dl Blood Type Antibody Screen Crossmatch 12/31/24 12/31/24 12/31/24 Range/Units 14:37 11:19 09:37 WBC 4.53 L (4.8-10.8) K/ul RBC 1.99 L (4.70-6.10) M/uL Hgb 6.8 L* (14.0-18.0) g/dl Hct 20.4 L* (42.0-52.0) % MCV 102.5 H (80.0-100.0) fL MCH 34.2 H (25.0-34.0) pg MCHC 33.3 (32.0-36.0) g/dL RDW Std Deviation 68.4 H (36.4-46.3) fL RDW Coeff of Polo 19.1 H (11.5-14.5) % Plt Count 67 L (130-400) K/uL MPV 10.2 (9.4-12.4) fL Sodium 125 L (136-145) mmol/L Potassium 3.2 L (3.5-5.1) mmol/L Chloride 95 L (98-107) mmol/L Carbon Dioxide 24 (21-32) mmol/L Anion Gap 6 (3-11) BUN 11 (6-23) mg/dl Creatinine 1.01 (0.6-1.4) mg/dl Est Cr Clr Drug Dosing 96.7 ml/min eGFR 85.14 BUN/Creatinine Ratio 10.9 (10-20) Glucose 214 H (70-99(Fasting)) mg/dl POC Glucose 277 H (70-99) mg/dl Calcium 7.8 L (8.6-10.3) mg/dl Magnesium (1.7-2.4) mg/dl Total Bilirubin 2.6 H (0.2-1.0) mg/dl AST 51 H (13-39) U/L ALT 30 (7-52) U/L Alkaline Phosphatase 101 (34-104) U/L Total Protein 4.8 L (6.0-8.3) gm/dl Albumin 2.1 L (3.4-5.0) gm/dl Globulin 2.7 (2.5-4.0) gm/dl Albumin/Globulin Ratio 0.8 L (0.9-2) Fluid Neutrophils % % Fluid Lymphocytes % % Fluid Basophils % % Fluid Meso/Macro/Woods % % Fluid Comment Peritoneal Color Peritoneal Appearance Peritoneal WBC (Auto) (0-300) /ul Peritoneal RBC (Auto) /uL Peritoneal Tot Protein gm/dl Peritoneal Albumin gm/dl Blood Type Antibody Screen Crossmatch 12/28/24 Range/Units 22:59 WBC (4.8-10.8) K/ul RBC (4.70-6.10) M/uL Hgb (14.0-18.0) g/dl Hct (42.0-52.0) % MCV (80.0-100.0) fL MCH (25.0-34.0) pg MCHC (32.0-36.0) g/dL RDW Std Deviation (36.4-46.3) fL RDW Coeff of Polo (11.5-14.5) % Plt Count (130-400) K/uL MPV (9.4-12.4) fL Sodium (136-145) mmol/L Potassium (3.5-5.1) mmol/L Chloride (98-107) mmol/L Carbon Dioxide (21-32) mmol/L Anion Gap (3-11) BUN (6-23) mg/dl Creatinine (0.6-1.4) mg/dl Est Cr Clr Drug Dosing ml/min eGFR BUN/Creatinine Ratio (10-20) Glucose (70-99(Fasting)) mg/dl POC Glucose (70-99) mg/dl Calcium (8.6-10.3) mg/dl Magnesium (1.7-2.4) mg/dl Total Bilirubin (0.2-1.0) mg/dl AST (13-39) U/L ALT (7-52) U/L Alkaline Phosphatase (34-104) U/L Total Protein (6.0-8.3) gm/dl Albumin (3.4-5.0) gm/dl Globulin (2.5-4.0) gm/dl Albumin/Globulin Ratio (0.9-2) Fluid Neutrophils % % Fluid Lymphocytes % % Fluid Basophils % % Fluid Meso/Macro/Woods % % Fluid Comment Peritoneal Color Peritoneal Appearance Peritoneal WBC (Auto) (0-300) /ul Peritoneal RBC (Auto) /uL Peritoneal Tot Protein gm/dl Peritoneal Albumin gm/dl Blood Type A Positive Antibody Screen NEGATIVE Crossmatch See Detail PG Care Time/CCT Total # of Minutes Spent Total Time Spent with Patient: Total time spent is greater than 50% in coordination of care (as documented) at patient's floor/unit and/or counseling patient: Coding Level of Care Code 55357 SUB INP/OBS CARE 2/35MIN Diagnoses Anemia D64.9
[2025-01-01] MEDS: nadoloL 40 MG TAB PO SCH (09:54)
[2025-01-01 11:21] VITALS: BP 96/57; PULSE 84; RESP 16; TEMP 97.5; O2SAT 97
[2025-01-01] MEDS: oxyCODONE HCL IR 5 MG TAB (IMMEDIATE RELEASE) PO STA (11:32)
--- NOTE | 2025-01-01 12:42 | Discharge Summary ---
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 Patient states he was feeling very short of breath today. Denies any cough. No fevers. No chest pains. Denies any abdominal pain. Patient says having some black stools for about a week now. Denies any blood in the stools. Says he was not micturating much. Denies headache. Has dizziness. Vision is okay. Has some sore throat. No runny nose. No cough. Blood pressure is soft. Hemoglobin came back 6.8. Patient was recently in the hospital for leaking of the ascitic fluid from the umbilical site even though sutures were placed. Patient was transferred to [place] for placement of Ple urx catheter. But at the [facility] transplant team recommended not to place any intra-abdominal catheter under no circumstances as patient is undergoing evaluation for possible liver transplant. General surgery placed sutures and he did okay and was discharged home. Currently patient is getting paracentesis every 5 days. Diagnostic paracentesis done today in the ER unremarkable. Patient ambulates with a walker but not much as he is feeling dizzy. Lives with his brother. Shortness of breath -improved Acute Blood Loss Anemia Ascites -Hemoglobin 6.8 -Baseline recent hemoglobins ranging from 7.5-9 -Says he is having black stools for about a week -s/p 1 unit of blood -EGD unrevealing for cause of bleed -s/p paracentesis -s/p 1 unit of blood Chronic Hypokalemia -replenish as needed Gonzales liver cirrhosis -On lactulose and Xifaxan -Total bili 3.3 same as previous labs -Continue midodrine -Patient is getting evaluated for liver transplant -discharge home with nadolol Hyponatremia -On sodium tablets Moderate aortic stenosis Pulmonary hypertension Follow-up with cardiology History of hepatocellular carcinoma/liver lesions -Patient received embolization of the right lower lobe lesion in 07/2023 -Repeat MRI in 01/2024 showed treatment cavity enhancement patient subsequently treated with TACE -MRI on 11/14/2024 showed abnormalities in hepatic segment 7 and currently the plan for SBRT -Patient says plan for SBRT from January 07 Diabetes -Sliding scale Thrombocytopenia -From liver cirrhosis -Platelets 84 History of gout -Allopurinol BPH -On Flomax -Monitor for urinary retention Hyperlipidemia -On Lipitor Notes For Next Care Provider Medication Changes From Visit 59-year-old male with past medical history significant for type 2 diabetes, hyperlipidemia, chronic idiopathic gout, history of hepatic encephalopathy, primary hypertension, moderate aortic stenosis, 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 On medicine, GI consulted given Hgb drop and dark stools, recommended EGD which was unremarkable. Received 2 units of blood total for anemia. Started on low dose nadolol for prophylaxis GI. ON 01/01/2025 patient medically stable for discharge home. Strongly recommend expedited transplant workup. 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 Patient states he was feeling very short of breath today. Denies any cough. No fevers. No chest pains. Denies any abdominal pain. Patient says having some black stools for about a week now. Denies any blood in the stools. Says he was not micturating much. Denies headache. Has dizziness. Vision is okay. Has some sore throat. No runny nose. No cough. Blood pressure is soft. Hemoglobin came back 6.8. Patient was recently in the hospital for leaking of the ascitic fluid from the umbilical site even though sutures were placed. Patient was transferred to [place] for placement of Pleurx catheter. But at the [facility] transplant team recommended not to place any intra-abdominal catheter under no circumstances as patient is undergoing evaluation for possible liver transplant. General surgery placed sutures and he did okay and was discharged home. Currently patient is getting paracentesis every 5 days. Diagnostic paracentesis done today in the ER unremarkable. Patient ambulates with a walker but not much as he is feeling dizzy. Lives with his brother. Past medical history. As mentioned above Past surgical history. Colonoscopy. EGD. IR biopsy. IR cancer chemoembolization. Social history. Quit smoking 2004. Chews tobacco. No alcohol use. No drug use. Family history. Mother had colon cancer. Hypertension. Father had diabetes. Emphysema. Hypertension. Black lung. [place] transplant. Brother has pacemaker. Diabetes. Heart attack. Hypertension. Hyperlipidemia. Liver disease. Sister has rheumatoid arthritis. Discharge Exam Gen: A&O 3 NAD HEENT: NCAT, EOMI, not icteric. External ears normal. No rhinorrhea. Moist mucous membranes. Neck: Supple, full range of motion, no observable masses, No meningeal sign. Lungs: No Respiratory distress. CV: RRR, no edema. Abdomen: Soft, nondistended, No rebound tenderness. MSK: No joint swelling, no redness. Skin: No rashes, petechiae, lesions. Normal color per patient. Neuro: Normal Gait, Grossly intact. Psych: Appropriate for situation. Updated Medication List Medication Instructions Recorded Confirmed Type allopurinol 300 mg tablet 300 mg PO DAILY 12/29/24 12/29/24 History ascorbic acid (vitamin C) 1,000 mg 1 g PO DAILY 12/29/24 12/29/24 History tablet atorvastatin 20 mg tablet 20 mg PO DAILY 12/29/24 12/29/24 History docusate sodium 100 mg capsule 100 mg PO BID PRN Constipation 12/29/24 12/29/24 History insulin degludec 100 unit/mL (3 10 unit subcut DAILY 12/29/24 12/29/24 History mL) subcutaneous pen lactulose 10 gram/15 mL oral 45 ml PO TID 12/29/24 12/29/24 History solution magnesium chloride 64 mg 64 mg PO DAILY 12/29/24 12/29/24 History (magnesium chloride) tablet,delayed release (Mag-Delay) midodrine 2.5 mg tablet 7.5 mg PO TID 12/29/24 12/29/24 History multivitamin 1 tab PO DAILY 12/29/24 12/29/24 History omeprazole 20 mg capsule,delayed 20 mg PO DAILY 12/29/24 12/29/24 History release potassium chloride 10 mEq 20 meq PO TID 12/29/24 12/29/24 History tablet,extended release(part/cryst) rifaximin 550 mg tablet (Xifaxan) 550 mg PO BID 12/29/24 12/29/24 History sodium chloride 1,000 mg soluble 1,000 mg PO BID 12/29/24 12/29/24 History tablet tamsulosin 0.4 mg capsule 0.4 mg PO DAILY 12/29/24 12/29/24 History torsemide 20 mg tablet 20 mg PO DAILY 12/29/24 12/29/24 History pantoprazole 40 mg tablet,delayed 40 mg PO BID #60 tabs 12/31/24 Rx release nadolol 40 mg tablet 10 mg (1/4 x 40 mg) PO QAM #30 tabs 01/01/25 Rx Hospital Stay Data Consultations 12/28/24 23:12 ED Decision to Admit Stat 12/29/24 08:00 Consult Gastroenterology Routine Procedures Performed Operation Date: 12/30/24 16:30 Actual Procedures p Esophagogastroduodenoscopy - Saad Ramos MD Diagnostic Imagining Performed 12/29/24 00:55 CT angio chest PE protocol Urgent 12/31/24 14:41 IR paracentesis abd w/img US Urgent Pending Results Patient Have Any Pending Studies at Discharge: No Discharge Instructions Given to Patient (Per Discharging Provider) 1. Please work with your transplant surgeon team. 2. Follow up with GI, transplant hepatology, PCP. 3. Follow up lab work in one week. Total Time Total Time Spent Total Time Spent (In Minutes): I spent a total of 35 minutes in direct patient care, including [id number] time with the patient and/or family, reviewing medical records, ordering and reviewing diagnostic tests, and coordinating care with other healthcare providers. This time includes: history taking, physical examination, medical decision making, counseling, ECG interpretation, imaging interpretation, lab interpretation, orders, and education, excluding time spent in the performance of separately billed services.
== END 2025-01-01 13:48 | disposition home or self-care (01) | DRG 812 ==
LOC: ED 20:31 → 2S 12-29 00:53

== ENCOUNTER 2025-01-13 09:02 | Inpatient (IN) ==
--- NOTE | 2025-01-13 09:53 | Emergency Department Note ---
Impression & Plan Pleural effusion ADMIT ED Provider Note HPI: History obtained from patient. The patient is a 59-year-old gentleman with history of Wells cirrhosis, presents the emergency department with a chief complaint of generalized fatigue, lethargy, and concern for a low hemoglobin on recent lab work. Patient states that he was having a paracentesis done earlier today at interventional radiology when he was speaking of his symptoms and they noted he seemed somewhat drowsy and therefore he was recommended to come to the ER to be assessed. Patient states he also had some preprocedural lab work done that showed a hemoglobin that was low which was another reason he was sent. On arrival here to the ED the patient is alert, answers my questions appropriately, he is mildly hypotensive at 97/58 in the setting of recent paracentesis but otherwise hemodynamically stable. ROS: - Per HPI Differential Diagnosis: Hepatic encephalopathy, sepsis, SBP, pneumonia, urinary tract infection, anemia/GI bleed, amongst other potential pathologies. *Outpatient medications and allergy history reviewed. PE: General: Alert, frail-appearing, no acute distress, oriented to place and time HEENT: Normocephalic, trachea midline Eyes: Extraocular eye movement is intact, no scleral erythema Pulmonary: Diminished breath sounds on the left side Cardio: Regular rate and rhythm GI: Abdomen is soft to palpation, mild distention : No suprapubic tenderness MSK: No evidence of trauma or malformation of the extremities, no edema Skin: No evidence of rash Neuro: Alert, no focal deficits Psychiatric: Cooperative INDEPENDENT INTERPRETATIONS: monitor tech: (As interpreted by myself): - An order was placed for continuous cardiac monitoring - Patient was noted to be in sinus rhythm with a rate of 95 Chest x-ray: (As interpreted by myself): Opacification of the entire left lung Medical Decision Making: IV was established and lab work obtained, patient was placed on monitor worker. Patient is hemodynamically stable on arrival. Lab work shows worsening anemia to 6.3 (baseline appears to be 7-7.5), platelet count is reduced at 71 which does appear to be the patient's baseline. CMP shows baseline hyponatremia 125, BUN is 25, creatinine is normal, ammonia is low at 16, bilirubin is 4.1, there is no transaminitis. Chest x-ray shows a complete opacification of the left lung, CT imaging was then obtained of the chest which shows a large left-sided pleural effusion with collapsed left lung. I suspect given the patient's medical history this is likely related to ascites. I did discuss the patient's presentation and x-ray imaging results with on-call pulmonology, Dr. Colbert, he is in agreement for consultation and will evaluate the patient for chest tube placement this afternoon. Case was then discussed with the on-call hospitalist service for [facility]. Following our discussion we will defer blood transfusion to the inpatient service given the patient's stability. Patient was placed for admission in stable condition. Consultants/Discussions held with other healthcare providers: -Pulmonology, Dr. Colbert -Hospitalist, Dr. Ferreira Disposition discussion held by myself with: -Pt Diagnosis: 1. Pleural effusion, acute, left-sided, with collapse of the left lung 2. Hyponatremia, chronic 3. Thrombocytopenia, chronic 4. History of Wells with cirrhosis 5. Anemia, acute on chronic Disposition: Admission Chino Zuniga DO Emergency Medicine Past Med/Surg History Problem List (Updated 01/13/25 @ 15:16 by Chino Zuniga DO) Pleural effusion (Acute) Pleural effusion on left Closed rib fracture (Acute) Contusion of knee, left (Acute) Lumbar contusion (Acute) Anemia SOB (shortness of breath) Abdominal ascites (Acute) Hypoalbuminemia (Acute) Hypokalemia (Acute) Hernia, umbilical (Acute) Thyroid lesion Mass of soft tissue of neck Acute dyspnea (Acute) Pleural effusion (Acute) Pleural effusion Hypokalemia (Acute) Hypomagnesemia (Acute) Constipation (Acute) Abdominal pain (Acute) Hyponatremia Orthostatic hypotension Dizziness (Acute) Medical non-compliance (Acute) Hyperammonemia (Acute) Ascites (Acute) Urinary retention Cirrhosis (Acute) Morbid obesity Hepatic encephalopathy 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 "if i get up to fast". S/P abdominal paracentesis Fracture of rib of right side 2013 Anaplasmosis 2019 Acute hepatic encephalopathy Cardiac murmur HX Hypertension Right rib fracture hx ~. Surgical History History of esophagogastroduodenoscopy (EGD) History of colonoscopy Family History Mother History of colonoscopy Cancer Colon Brother Family history of diabetes mellitus Brother Family history of diabetes mellitus Grandmother (Paternal) Family history of diabetes mellitus Other No family history of adverse response to anesthesia Social History Smoking Status: Former smoker Tobacco Type: Smokeless Tobacco (Dip or Chew) packs per day: 0.25; Second Hand Exposure: No; Do You Dip or Chew Tobacco: Yes; Hx Alcohol Use: Yes Hx Substance Use: No Preferred Language: Uzbek Communication Ability: Effective Hearing Ability: Normal Sponge Hooker Required: No Beliefs That Will Affect Care: None marital status: Single Current Living Situation: Family Current Living Situation Comment: With brother and mother Feels Safe at Home: Yes Safety Concerns: Feels Safe At This Time Assistive Devices: Glasses and Walker Allergies Allergies Allergy/AdvReac Type Severity Reaction Status Date / Time aspirin AdvReac Intermediate NOSE Verified 01/08/25 19:48 BLEEDS--IF TAKES REGULARLY salicylates AdvReac Intermediate NOSE BLEEDS Verified 01/08/25 19:48 Home Meds Home Medications Medication Instructions Recorded Confirmed allopurinol 300 mg tablet 300 mg PO DAILY 12/29/24 01/13/25 ascorbic acid (vitamin C) 1,000 mg 1 g PO DAILY 12/29/24 01/13/25 tablet atorvastatin 20 mg tablet 20 mg PO DAILY 12/29/24 01/13/25 insulin degludec 100 unit/mL (3 10 unit subcut DAILY 12/29/24 01/13/25 mL) subcutaneous pen lactulose 10 gram/15 mL oral 45 ml PO TID 12/29/24 01/13/25 solution magnesium chloride 64 mg 64 mg PO DAILY 12/29/24 01/13/25 (magnesium chloride) tablet,delayed release (Mag-Delay) midodrine 2.5 mg tablet 5 mg PO TID 12/29/24 01/13/25 multivitamin 1 tab PO DAILY 12/29/24 01/13/25 potassium chloride 10 mEq 20 meq PO BID 12/29/24 01/13/25 tablet,extended release(part/cryst) rifaximin 550 mg tablet (Xifaxan) 550 mg PO BID 12/29/24 01/13/25 sodium chloride 1,000 mg soluble 1,000 mg PO BID 12/29/24 01/13/25 tablet tamsulosin 0.4 mg capsule 0.4 mg PO DAILY 12/29/24 01/13/25 torsemide 20 mg tablet 20 mg PO DAILY 12/29/24 01/13/25 Lactobacillus acidophilus 10 10,000 mmu cells PO BID 01/08/25 01/13/25 billion cell capsule (Probiotic) docusate sodium 100 mg capsule 100 mg PO BID 01/08/25 01/13/25 mupirocin 2 % topical ointment 1 applic topical TID PRN Skin 01/08/25 01/13/25 Irritation Previous Rx's Medication Instructions Recorded pantoprazole 40 mg tablet,delayed 40 mg PO BID #60 tabs 12/31/24 release nadolol 40 mg tablet 10 mg (1/4 x 40 mg) PO QAM #30 tabs 01/01/25 oxycodone 5 mg tablet 5 mg PO Q6H PRN pain #10 tabs 01/08/25 Results & Data (ED) Vital Signs Vital Signs - 24 hr 01/13/25 09:33 01/13/25 11:30 Temperature 36.8 C Temperature Source Oral Pulse Rate 93 H Pulse Rate [Left Finger] 94 H Pulse Rhythm [Left Finger] Regular Pulse Strength [Left Finger] Normal Respiratory Rate 18 20 Respiratory Effort / Characteristics Non-Labored Blood Pressure 97/58 L Blood Pressure [Left Arm] 96/60 L Blood Pressure Mean 71 Blood Pressure Mean [Left Arm] 72 Blood Pressure Position Sitting Pulse Oximetry 93 96 Oxygen Delivery Method Room Air Sepsis Recent Fever Within 48 Hours No Sepsis New/Unexplained Change in Mental Status No Sepsis Action Taken by Nursing No Action Required Laboratory Data 01/13/25 09:42 01/13/25 09:42 Lab Results 01/13/25 01/13/25 Range/Units 09:42 09:58 WBC 7.35 (4.8-10.8) K/ul RBC 1.82 L (4.70-6.10) M/uL Hgb 6.3 L* (14.0-18.0) g/dl Hct 18.9 L* (42.0-52.0) % MCV 103.8 H (80.0-100.0) fL MCH 34.6 H (25.0-34.0) pg MCHC 33.3 (32.0-36.0) g/dL RDW Std Deviation 79.5 H (36.4-46.3) fL RDW Coeff of Polo 21.4 H (11.5-14.5) % Plt Count 71 L (130-400) K/uL MPV 10.6 (9.4-12.4) fL Immature Gran % (Auto) 0.7 % Neut % (Auto) 78.3 % Lymph % (Auto) 3.5 % [place] % (Auto) 14.7 % Eos % (Auto) 2.7 % Baso % (Auto) 0.1 % Neut # (Auto) 5.75 (1.40-6.50) K/uL Lymph # (Auto) 0.26 L (1.20-3.40) K/uL [place] # (Auto) 1.08 H (0.11-0.59) K/uL Eos # (Auto) 0.20 (0.00-0.50) K/uL Baso # (Auto) 0.01 (0.00-0.20) K/uL Immature Gran # (Auto) 0.05 (0.01-0.20) K/uL Polychromasia 1+ Anisocytosis Present PT 16.7 H (9.0-12.0) Seconds INR 1.6 H (0.9-1.1) APTT 34 H (21-31) Seconds PTT Ratio 1.3 Sodium 125 L (136-145) mmol/L Potassium 3.7 (3.5-5.1) mmol/L Chloride 92 L (98-107) mmol/L Carbon Dioxide 28 (21-32) mmol/L Anion Gap 5 (3-11) BUN 25 H (6-23) mg/dl Creatinine 0.97 (0.6-1.4) mg/dl Est Cr Clr Drug Dosing 82.6 ml/min eGFR 89.37 BUN/Creatinine Ratio 25.8 H (10-20) Glucose 122 H (70-99(Fasting)) mg/dl Calcium 8.3 L (8.6-10.3) mg/dl Total Bilirubin 4.1 H (0.2-1.0) mg/dl AST 36 (13-39) U/L ALT 33 (7-52) U/L Alkaline Phosphatase 117 H (34-104) U/L Ammonia 16.0 L (18-72) umol/L Total Protein 5.3 L (6.0-8.3) gm/dl Albumin 2.8 L (3.4-5.0) gm/dl Globulin 2.5 (2.5-4.0) gm/dl Albumin/Globulin Ratio 1.1 (0.9-2) Blood Type A Positive Antibody Screen NEGATIVE Crossmatch See Detail Administered Medications Acetaminophen (Acetaminophen 325 Mg Tab) 650 mg PO PRE-TREAT ONE Stop: 01/13/25 20:36 Last Admin: 01/13/25 13:17 Dose: 650 mg Documented By: TEDDY Diphenhydramine HCl (Diphenhydramine Capsule 25 Mg Cap) 25 mg PO PRE-TREAT ONE Stop: 01/13/25 20:36 Last Admin: 01/13/25 13:17 Dose: 25 mg Documented By: TEDDY Discontinued Medications Furosemide (Furosemide Inj 20 Mg/2 Ml Vial) 20 mg IV ONE ONE Stop: 01/13/25 14:01 Last Admin: 01/13/25 14:14 Dose: 20 mg Documented By: JAIDA Ioversol (Optiray 320 100ml) 94 ml IV ONCE ONE Stop: 01/13/25 11:14 Last Admin: 01/13/25 11:14 Dose: 94 ml Documented By: NAZIA Imaging Data Radiologist's Impression: Chest X-Ray 01/13/25 09:39 XR chest 1V portable CLINICAL HISTORY: s/p fall COMPARISON STUDY: 12/28/2024 FINDINGS: There is interval complete opacification of the left hemithorax. Right lung remains well aerated. No pneumothorax seen. Cardiac silhouette is mostly obscured. There are multiple lateral left lower rib fractures. IMPRESSION: 1. Left-sided lower rib fractures. 2. Complete opacification of the left hemithorax could represent large pleural effusion, consolidation, or left airway obstruction and left lung collapse. ACT 112: Negative or not required by law. Electronically signed by: Demario Cuadra M.D. 01/13/2025 10:[address] 01/13/25 10:[address] WITH CONTRAST CT DOSE: 1032.09 mGy.cm HISTORY: eval L lung TECHNIQUE: Multiaxial CT images of the chest were performed following the IV administration of 90 cc of Optiray. A dose lowering technique was utilized adhering to the principles of ALARA. COMPARISON STUDY: 12/29/2024 FINDINGS: There is a large left pleural effusion, increased in size. There is complete collapse of the left lung. No airway obstruction seen. There is no consolidation or pleural effusion on the right. No pneumothorax. There is stable mild subcarinal lymphadenopathy. Findings of cirrhosis, portal hypertension, varices, and small amount of ascites are seen at the visualized upper abdomen. There are nondisplaced fractures laterally at the left sixth and seventh ribs which appear acute to recent subacute. There are mild thoracic spine degenerative changes. IMPRESSION: 1. Increased size of large left pleural effusion with complete collapse of the left lung. 2. Nondisplaced acute to recent subacute lower left rib fractures. 3. Otherwise as described. ACT 112: Negative or not required by law. Electronically signed by: Demario Cuadra M.D. 01/13/2025 11:38 AM Discharge Plan Visit Data Chief Complaint: Abnormal Labs/Diagnostic Testing Stated Complaint: CONFUSION ED Provider: Chino Zuniga Discharge Problem: Pleural effusion Patient Disposition: Admitted As Inpatient Discharge Instructions Interventions: ED Discharge Assessment Last Done: 01/13/25 13:06
[2025-01-13 10:27] LABS: INR 1.6 (0.9-1.1); Partial Thromboplastin Ratio 1.3; Partial Thromboplastin Time 34 Seconds (21-31); Prothrombin Time 16.7 Seconds (9.0-12.0)
[2025-01-13 10:28] LABS: Mean Corpuscular Hemoglobin 34.6 pg (25.0-34.0); Mean Corpuscular Hgb Conc 33.3 g/dL (32.0-36.0); Mean Corpuscular Volume 103.8 fL (80.0-100.0); Mean Platelet Volume 10.6 fL (9.4-12.4); Platelet Count 71 K/uL (130-400); RDW Coefficient of Variation 21.4 % (11.5-14.5); RDW Standard Deviation 79.5 fL (36.4-46.3); Red Blood Count 1.82 M/uL (4.70-6.10); White Blood Count 7.35 K/ul (4.8-10.8)
[2025-01-13 10:32] LABS: Albumin Globulin Ratio 1.1 (0.9-2); Albumin Level 2.8 gm/dl (3.4-5.0); BUN Creatinine Ratio 25.8 (10-20); Bilirubin,Total 4.1 mg/dl (0.2-1.0); Calcium 8.3 mg/dl (8.6-10.3); Creatinine Clr Calc Pharmacy 82.6 ml/min; Globulin 2.5 gm/dl (2.5-4.0); Hematocrit (blood only) 18.9 % (42.0-52.0); Hemoglobin 6.3 g/dl (14.0-18.0); Potassium 3.7 mmol/L (3.5-5.1); Total Protein 5.3 gm/dl (6.0-8.3)
[2025-01-13 10:45] LABS: Anisocytosis Present; Basophils # (auto) 0.01 K/uL (0.00-0.20); Basophils % (auto) 0.1 %; Eosinophils % (auto) 2.7 %; Immature Granulocytes # (auto) 0.05 K/uL (0.01-0.20); Immature Granulocytes % (auto) 0.7 %; Lymphocytes # (auto) 0.26 K/uL (1.20-3.40); Lymphocytes % (auto) 3.5 %; Monocytes # (auto) 1.08 K/uL (0.11-0.59); Monocytes % (auto) 14.7 %; Neutrophils # (auto) 5.75 K/uL (1.40-6.50); Neutrophils % (auto) 78.3 %; Polychromasia 1+
--- NOTE | 2025-01-13 10:53 | XRay Report ---
XR chest 1V portable CLINICAL HISTORY: s/p fall COMPARISON STUDY: 12/28/2024 FINDINGS: There is interval complete opacification of the left hemithorax. Right lung remains well ae rated. No pneumothorax seen. Cardiac silhouette is mostly obscured. There are multiple lateral left l ower rib fractures. IMPRESSION: 1. Left-sided lower rib fractures. 2. Complete opacification of the left hemithorax could represent large pleural effusion, consolidatio n, or left airway obstruction and left lung collapse. ACT 112: Negative or not required by law. Electronically signed by: Demario Cuadra M.D. 01/13/2025 10:51 AM
[2025-01-13] MEDS: OPTIRAY 320 100ml IV ONE (11:14)
--- NOTE | 2025-01-13 11:40 | CT Scan Report ---
CHEST CT WITH CONTRAST CT DOSE: 1032.09 mGy.cm HISTORY: eval L lung TECHNIQUE: Multiaxial CT images of the chest were performed following the IV administration of 90 cc of Optiray. A dose lowering technique was utilized adhering to the principles of ALARA. COMPARISON STUDY: 12/29/2024 FINDINGS: There is a large left pleural effusion, increased in size. There is complete collapse of th e left lung. No airway obstruction seen. There is no consolidation or pleural effusion on the right. No pneumothorax. There is stable mild subcarinal lymphadenopathy. Findings of cirrhosis, portal hyper tension, varices, and small amount of ascites are seen at the visualized upper abdomen. There are non displaced fractures laterally at the left sixth and seventh ribs which appear acute to recent subacut e. There are mild thoracic spine degenerative changes. IMPRESSION: 1. Increased size of large left pleural effusion with complete collapse of the left lung. 2. Nondisplaced acute to recent subacute lower left rib fractures. 3. Otherwise as described. ACT 112: Negative or not required by law. Electronically signed by: Demario Cuadra M.D. 01/13/2025 11:38 AM
--- NOTE | 2025-01-13 12:01 | Pulmonary Consultation ---
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 Risk and benefit of the procedure explained to the patient in depth. Patient understands and wants to go ahead with the procedures Consent signed, witnessed and put in the chart Please note the above document was generated using voice recognition software. It may contain grammatical, syntax or spelling errors.Any formal questions or concerns about the content, text or information contained within the body of this dictation should be directly addressed to the provider for clarification. History of Present Illness History of Present Illness 59-year-old male was sent from IR because of generalized fatigue and lethargy Past medical history: Wells cirrhosis, hypertension, gout, dyslipidemia, diabetes Pulmonary consulted for large left-sided pleural effusion At the time of examination in the ER, patient was not any respiratory distress He was laying comfortably on the bed Saturation was 93-94% on room air Was breathing in the high teens to low 20s. Complained of chest tightness around the retrosternal area, no radiation anywhere. No nausea vomiting No unusual headache or blurry vision No fever or chills Occasional cough with clear phlegm. No hemoptysis No unintentional weight loss Social history: Approximately [id number] smoking history, quit at the age of 39 Allergies Allergy/AdvReac Type Severity Reaction Status Date / Time aspirin AdvReac Intermediate NOSE Verified 01/08/25 19:48 BLEEDS--IF TAKES REGULARLY salicylates AdvReac Intermediate NOSE BLEEDS Verified 01/08/25 19:48 Home Medications Medication Instructions Recorded Confirmed Type allopurinol 300 mg tablet 300 mg PO DAILY 12/29/24 01/13/25 History ascorbic acid (vitamin C) 1,000 mg 1 g PO DAILY 12/29/24 01/13/25 History tablet atorvastatin 20 mg tablet 20 mg PO DAILY 12/29/24 01/13/25 History insulin degludec 100 unit/mL (3 10 unit subcut DAILY 12/29/24 01/13/25 History mL) subcutaneous pen lactulose 10 gram/15 mL oral 45 ml PO TID 12/29/24 01/13/25 History solution magnesium chloride 64 mg 64 mg PO DAILY 12/29/24 01/13/25 History (magnesium chloride) tablet,delayed release (Mag-Delay) midodrine 2.5 mg tablet 5 mg PO TID 12/29/24 01/13/25 History multivitamin 1 tab PO DAILY 12/29/24 01/13/25 History potassium chloride 10 mEq 20 meq PO BID 12/29/24 01/13/25 History tablet,extended release(part/cryst) rifaximin 550 mg tablet (Xifaxan) 550 mg PO BID 12/29/24 01/13/25 History sodium chloride 1,000 mg soluble 1,000 mg PO BID 12/29/24 01/13/25 History tablet tamsulosin 0.4 mg capsule 0.4 mg PO DAILY 12/29/24 01/13/25 History torsemide 20 mg tablet 20 mg PO DAILY 12/29/24 01/13/25 History pantoprazole 40 mg tablet,delayed 40 mg PO BID #60 tabs 12/31/24 01/13/25 Rx release nadolol 40 mg tablet 10 mg (1/4 x 40 mg) PO QAM #30 tabs 01/01/25 01/13/25 Rx Lactobacillus acidophilus 10 10,000 mmu cells PO BID 01/08/25 01/13/25 History billion cell capsule (Probiotic) docusate sodium 100 mg capsule 100 mg PO BID 01/08/25 01/13/25 History mupirocin 2 % topical ointment 1 applic topical TID PRN Skin 01/08/25 01/13/25 History Irritation oxycodone 5 mg tablet 5 mg PO Q6H PRN pain #10 tabs 01/08/25 01/13/25 Rx Patient History Medical History (Updated 01/13/25 @ 15:16 by Chino Zuniga, ) BPH (benign prostatic hyperplasia) Ureterolithiasis Hepatocellular carcinoma s/p IR embolization Pulmonary hypertension Diabetes mellitus NAFLD (nonalcoholic fatty liver disease) Chronic hyponatremia Dizziness r/t the cirrhosis - using a cane at this time. "if i get up to fast". S/P abdominal paracentesis Fracture of rib of right side 2013 Anaplasmosis 2019 Acute hepatic encephalopathy Cardiac murmur HX Hypertension Right rib fracture hx ~. Surgical History History of esophagogastroduodenoscopy (EGD) History of colonoscopy Family History Mother History of colonoscopy Cancer Colon Brother Family history of diabetes mellitus Brother Family history of diabetes mellitus Grandmother (Paternal) Family history of diabetes mellitus Other No family history of adverse response to anesthesia Social History Smoking Status: Former smoker Tobacco Type: Smokeless Tobacco (Dip or Chew) packs per day: 0.25; Second Hand Exposure: No; Do You Dip or Chew Tobacco: No; Tobacco Cessation Education Requested by Patient: No Hx Alcohol Use: No Hx Substance Use: No Preferred Language: Latvian Communication Ability: Effective Hearing Ability: Normal Major Sales Associate Required: No Beliefs That Will Affect Care: None marital status: Single Current Living Situation: Alone Current Living Situation Comment: With brother and mother Other Information That Helps Us Care for You: No Feels Safe at Home: Yes Safety Concerns: Feels Safe At This Time Assistive Devices: Walker Review of Systems 2 Review of Systems: All systems reviewed & are unremarkable except as noted in HPI & below Physical Exam 2 Physical Exam: Constitutional: No acute distress HEENT: EOMI, PERRLA Respiratory system: Decreased air entry on the left side, no wheeze, rhonchi, positive crackles bilaterally CVS: S1-S2 positive, positive 2 out of 6 systolic murmur appreciated best at aorta Abdomen: Soft, nontender, nondistended, positive bowel sounds x4, obese Extremities: +2 pulses bilaterally radialis/ dorsalis pedis, no cyanosis, +1 pitting edema bilateral lower extremity Neuro: Awake alert oriented x3 Psych: Normal mood and affect G/U: No Mcmillan Skin: no rashes, warm and dry Lymphatic: no cervical or axillary lymphadenopathy Results & Data Results & Data Vital Signs (Past 12 Hours) Vital Signs Temp Pulse Resp BP Pulse Ox O2 Del Method 01/13/25 09:33 36.8 C 93 H 18 97/58 L 93 Room Air Laboratory Results 01/14/25 07:10 01/14/25 07:10 PG Care Time/CCT Total # of Minutes Spent Total Time Spent with Patient: Total time spent is greater than 50% in coordination of care (as documented) at patient's floor/unit and/or counseling patient: Coding Level of Care Code 93250 INT INP/OBS CARE 375MIN Diagnoses Pleural effusion on left J90 SOB (shortness of breath) R06.02 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
--- OUTSIDE RECORDS SUMMARY | 2025-01-13 12:12 | External Medical Summary | Summary of Care ---
Author Name Unknown Organization [facility] Address [address] [place] [address] Phone [phone] Care Team Providers Care Fire Technician Name Role Phone Joann Palomo MD Primary Care Provide r Reason for Visit * Reason Onset Date Comments Order Request 01/10/2025 Encounter Details Date Type Department Care Team (Late st Contact Info) Description 01/10/2025 Telephone Family Medicine [address] [address] Joann Palomo MD [address] [place] [address] [place] [address] Order Request Allergies Active Allergy Reactions Criticality Noted Date Comments Aspirin 01/28/2022 Other reaction(s): bloody nose Salicylates 08/08/2001 nose bleeds documented as of this encounter (statuses as of 01/11/2025) Medications Multivitamin Adult Oral Tablet daily . [...] days. DxE11.9 3 Each 3 4 Active Allopurinol 300 MG Oral Tablet [...] and 2 Tablets before bedtime. 5 Active Nadolol 40 MG Oral Tablet (Corgard) Take 0.25 Tablets by mouth in the morning. 5 Active Pantoprazole Sodium 40 MG Oral Tablet Delayed Release (Protonix) Take 1 Tablet by mouth in the morning and 1 Tablet before bedtime. 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 07/05/2023 Hepatic encephalopathy 03/28/2022 Overview (12/06/2022): admitted [facility], ammonia 110 Aortic stenosis, moderate 01/21/2022 Thrombocytopenia [...] as of this encounter (statuses as of 01/11/2025) Resolved Problems Problem Noted Date Diagnosed Date [...] as of this encounter (statuses as of 01/11/2025) Immunizations Name Administration Dates Next Due COVID-19 [...] file Not on file Not on file 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 WRAPPER TENDER Not on file Not on file Not [...] documented in this encounter Miscellaneous Notes * Addendum Note - Joann Palomo MD - 01/11/2025 8:45 AM EDTAddended by: JOANN PALOMO on: 01/11/2025 08:45 AM Modules accepted: Orders * Telephone Encounter - Joann Palomo MD - 01/11/2025 8:41 AM EDT Will order the hospital bed and wheel chair - note addended * Telephone Encounter - Analia Maldonado RN - 01/10/2025 4:16 PM EDT Spoke to patient sister leona Adamson, she would like to request an order for a hospital bed and a wheelchair (not electric) so patient could maneuver around the house more without falling. She also was concerned about his health, she does bring him to his appts but does not come back with him. I suggest she talk to him and see if its ok to come back, its always better to have 2 people . She is afraid he gets confused and his meds are always being changed. She states patient lives with his 90yomother and a brother who is disabled. Snow and rahul live next door and they do help them out a lot. She will speak to patient. I will message Dr. Palomo re orders for a wheelchair and hospital bed to help him be able to get out of bed easier. Do we need to speak with [employer] re other resources if patient is in need? Reason for Call: Order Request Contact: Telephone Call Contact Type: Advice Provider In-Basket: Yes Outcome: see note Face to face time spent with Patient (minutes): 0 Total Time including non face to face (minutes): 10 * Telephone Encounter - Jackie Horton OSA - 01/10/2025 11:17 AM EDT Good Morning, Nurse at [facility] called on mutual patient to request an order for wheel chair and hospital bed. Please call patients sister Snow Spencer at [phone] to discuss. Thank you IXOMARA Maurer documented in this encounter Plan of Treatment Upcoming Encounters Date Type Department Care Team (Late st Contact Info) Description 01/14/2025 10:30 AM EDT Office Visit Gastroenterology, [facility] [address] [place] [address] Ren Pineda CRNP [address] [place] [address] 01/23/2025 3:00 PM EDT Office Visit Pharmacy, [address] [place] [address] [place] [address] 03/10/2025 7:20 AM EDT Office Visit [address] [place] [phone] Joann Palomo MD [address] [place] [address] [place] [address] 03/20/2025 10:30 AM EDT Office Visit Cardiology, [facility] [address] [place] [address] Chino Carrillo PA-C [address] [place] [address] 04/18/2025 10:30 AM EDT Office Visit Gastroenterology, [facility] [address] [place] [address] Ren Pineda CRNP [address] [place] [address] 06/02/2025 10:00 AM EDT Office Visit [address] [place] [phone] Joann Palomo MD [address] [place] [address] [place] [address] 09/11/2025 2:00 PM EST Imaging Radiology [address] [place] [address] Scheduled Procedures Name Priority Associated Diagnoses Date/Ti [...] 03/16/2021, Additional history exists COVID-19 Vaccine ( - season) 2024 09/09/2024, 10/18/2021, 03/08/2021, Additional history exists HbA1c 06/05/2025 12/06/2024, 0610/2023, 01/05/2024, Additional history exists Depression Screening 09/09/2025 09/09/2024 GFR 01/07/2026 01/07/2025, 12/28, 12/11/2024, Additional history exists Lipid Panel 09/18/2028 09/18/2023, [...] this encounter Medical Devices Implanted Type Area Basketballs And Footballs Reverser Device Identifier Shelf Expiration Date Model / Serial / Lot Lipiodol Injection - [id number] Implanted:Qty: 1 on 08/02/2023 at [facility] [email or web address] 04/28/2026 [id number] Syr Pf 2ml Embospheres 100-300 - [id number] Implanted:Qty: 1 on 08/02/2023 at [facility] [employer] [id number] 02/26/2026 S220GH / / [id number] Syr Pf 2ml Embospheres 100-300 - [id number] Implanted:Qty: 1 on 04/11/2024 at [facility] [employer] [id number] 12/27/2026 S220GH / / [id number] Lipiodol Injection - [id number] Implanted:Qty: 1 on 04/11/2024 at [facility] [email or web address] 36617-09 documented as of this encounter Visit Diagnoses Diagnosis 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 Question Answer Comments Discussion of Advance Directives occurred with: Patient Care Teams Fire Technician Relationship Specialty Start Date End Date Joann Palomo MD [address] [place] [address] [place] [phone] PCP - General Family Medicine 12/22/23 documented as of this encounter
--- OUTSIDE RECORDS SUMMARY | 2025-01-13 12:12 | External Medical Summary | Summary of Care ---
Author Name Unknown Organization [facility] Address [address] [facility] [address] Phone [phone] Care Team Providers Care Interpreter Deaf Name Role Phone Krystian Palomo MD Primary Care Provide r Reason for Visit * Reason Onset Date Comments Hospital Follow-Up Pt states fee ling "better", but still dizzy Hospital Follow-Up 01/07/2025 Encounter Details Date Type Department Care Team (Late st Contact Info) Description 01/07/2025 9:00 AM EDT Office Visit Family Medicine [address] [phone] Krystian Palomo MD [address] [place] [address] [place] [address] HTN, goal below 140/90*; 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); Other ascites; Severe anemia; Hospital discharge follow-up Allergies Active Allergy Reactions Criticality Noted Date [...] encephalopathy 03/28/2022 Overview (12/06/2022): admitted [facility], ammonia 110 Aortic stenosis, moderate 01/21/2022 [...] file Not on file Not on file 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 LIBRARIAN Not on file Not on file Not on file documented as of this encounter Last Filed Vital Signs Vital Sign Reading Time Taken Comments Blood Pressure 74/43 01/07/2025 9:14 AM EDT Pulse 90 01/07/2025 9:14 AM EDT Temperature 35.5 C (95.9 F) 01/07/2025 9:14 AM ED T Respiratory Rate - - Oxygen Saturation 99% 01/07/2025 9:14 AM EDT Inhaled Oxygen Concentration - - Weight 109.6 kg (241 lb 9.6 oz) 01/07/2025 9:14 AM EDT Height - - Body Mass Index 34.67 12/05/2024 10:33 PM EST documented in this [...] Lucía Taylor RN documented in this encounter Progress Notes * Krystian Palomo MD - 01/07/2025 9:24 AM EDT Subjective: HPI: Lloyd Spencer is a 59 year old male with hx of DMII, HLD, HTN, thrombocytopenia, Moderate , Livercirrhosis with ascites , BPH, Hepatocellular carcinoma s/p TACE, hypotension, Abd sinus tract seen for Pt was admitted from 12/29-01/01 SOB with Anemia: - Hgb was 6.8 - s/p 2 units of pRBC - EGD showed no bleeding - s/p paracentesis Today: - feel better but still feeling intermittently dizzy - per pt he is interested in Liver transplant thus not interested in getting TIPS - denied any black or bloody stool - denied any confusion - still having mild abd distention Discharge: hgb 9.1, Cr: 0.96 Patient Active Problem List Diagnosis HTN, goal [...] sinus tract Malnutrition of moderate degree (HCC) Hepatocellular carcinoma (HCC) Current Outpatient Medications Medication Sig Dispense [...] the morning and 1 Capsule before bedtime. [employer]ul Verio In Vitro Strip (Glucose Blood) Use [...] 1 Tablet by mouth in the morning. Birdpost G7 Sensor Use as directed every 10 days. DxE11.9 3 Each 3 Allopurinol 300 MG Oral Tablet (Zyloprim) Take [...] the morning and 2 Tablets before bedtime. Nadolol 40 MG Oral Tablet (Corgard) Take 0.25 Tablets by mouth in the morning. Pantoprazole Sodium 40 MG Oral Tablet Delayed Release (Protonix) Take 1 Tablet by mouth in the morning and 1 Tablet before bedtime. 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 [facility] Past Surgical History: Procedure Laterality Date ABD/PELVIS CT W/O IV AND W/O PO CONTRAST 03/30/2010 diverticulitis, [facility] CHG CT HEAD/BRAIN W/O CONTRAST MATERIAL 02/27/2024 no acute changes to explain encephalopathy COLONOSCOPY, DIAGNOSTIC (RECTUM) 06/07/2019 normal, repeat 5 yrs/[facility] COLONOSCOPY, DIAGNOSTIC (RECTUM) N/A 01/11/2024 hemorrhoids/recall 5 years/Colonoscopy/AL COLORECTAL CANCER SCREEN; COLON 05/22/2010 wnl , [...] performed by Gerardo Workman MD at ENDOSCOPY [facility] EGD, FLEXIBLE, DIAGNOSTIC 07/04/2023 Portal hypertensive gastropathy., esophagus and duodenuum normal (EGD), FLEXIBLE, TRANSORAL, DIAGNOSTIC performed by Juli Krause DO at ENDOSCOPY [facility] EGD, FLEXIBLE, DIAGNOSTIC N/A 09/05/2024 moderate portal hypertensive gastropathy/recall 2 years/ESOPHAGOGASTRODUODENOSCOPY (EGD), FLEXIBLE,TRANSORAL, DIAGNOSTIC performed by Jayla Armstrong MD at OR [facility] FOBT (EIA) 08/27/2023 negative IR BIOPSY 10/04/2024 [...] Vaping/E-Cigarette Devices ROS: -Per HPI OBJECTIVE: BP 74/43 | Pulse 90 | Temp 95.9 F (35.5 C) | Wt 241 lb 9.6 oz (109.6 kg) | SpO2 99% | BMI 34.67kg/m | BSA 2.33 m PHYSICAL EXAM: Vitals are reviewed General:. NAD, well developed HEENT:. Normal Conjunctiva, EOMI Cardiac:.systolic murmur, Normal S1, S2 Lungs:. CTA, no wheezing or crackles Abd:.mildly distended, reducible umbilical hernia, soft, NT MSK:. No LE edema Psych:. 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 | Check-out note: Pls help pt get a hepatology appt I spent a total of 40-54 minutes (exact time 42 mins) on the date of service in preparation, delivery, and documentation of the care provided to Lloyd Spencer excluding any time spent in the performance of separately billed services or time spent by another provider/QHP. Addendum (01/12/24) - due to ambulatory dysfunction, abd ascites pt will benefit from hospital bed and wheelchair - order placed Krystian Palomo MD Family medicine, [address] [address] documented in this encounter Plan of Treatment Upcoming Encounters Date Type Department Care Team (Late st Contact Info) Description 01/14/2025 10:30 AM EDT Office Visit Gastroenterology, [facility] [address] [place] [address] Ren Pineda CRNP [address] [place] [address] 01/23/2025 3:00 PM EDT Office Visit Pharmacy, [address] [place] [address] [place] [address] 03/10/2025 7:20 AM EDT Office Visit Family [address] [place] [phone] Krystian Palomo MD [address] [place] [address] [place] [address] 03/20/2025 10:30 AM EDT Office Visit Cardiology, [facility] [address] [place] [address] Chino Carrillo PA-C [address] [place] [address] 04/18/2025 10:30 AM EDT Office Visit Gastroenterology, [facility] [address] [place] [address] Ren Pineda CRNP [address] [place] [address] 06/02/2025 10:00 AM EDT Office Visit Family Medicine [address] [place] [address] Krystian Palomo MD [address] [place] [address] [place] [address] 09/11/2025 2:00 PM EST Imaging Radiology [address] [place] [address] Scheduled Orders Name Type Priority Associated Diagnoses Orde r Schedule CBC WITH WBC DIFFERENTIAL Lab Routine Severe anemia Ordered: 01/07/2025 CBC Lab Routine Severe anemia Ordered: 01/07/2025 DIFFERENTIAL, AUTOMATED Lab Routine Severe anemia Ordered: 01/07/2025 Scheduled Procedures Name Priority Associated Diagnoses Date/Ti [...] this encounter Medical Devices Implanted Type Area Bondactor Machine Operator Device Identifier Shelf Expiration Date Model / Serial / Lot Lipiodol Injection - [id number] Implanted:Qty: 1 on 08/02/2023 at [facility] [employer] 04/28/2026 [id number] Syr Pf 2ml Embospheres 100-300 - [id number] Implanted:Qty: 1 on 08/02/2023 at [facility] [employer] [id number] 02/26/2026 S220GH / / [id number] Syr Pf 2ml Embospheres 100-300 - [id number] Implanted:Qty: 1 on 04/11/2024 at [facility] [employer] [id number] 12/27/2026 S220GH / / [id number] Lipiodol Injection - [id number] Implanted:Qty: 1 on 04/11/2024 at [facility] [employer] [id number] documented as of this encounter Procedures Procedure Name Priority Date/Time Associated Diagnosis Comments COMPREHENSIVE METABOLIC PANEL Routine 01/07/2025 9:47 AM EDT Severe anemia documented in this encounter Results * (ABNORMAL) COMPREHENSIVE METABOLIC PANEL (01/07/2025 9:47 AM EDT) BUN 15 6 - 20 mg/dL 01/07/2025 11:13 PM EDT [facility] CREATININE 1.0 0.6 - 1.2 mg/dL 01/07/2025 11:13 PM EDT [facility] EGFR 88 >=60 mL/min 01/07/2025 11:13 PM EDT [facility] Comment:eGFR is calculated b ased on the CKD-EPI 2020 equation. SODIUM 124(L) 135 - 146 mmol/L 01/07/2025 11:13 PM EDT [facility] POTASSIUM 4.7 3.5 - 5.1 mmol/L 01/07/2025 11:13 PM EDT [facility] Comment:Results may be false ly elevated due to hemolysis. CHLORIDE 92(L) 98 - 107 mmol/L 01/07/2025 11:13 PM EDT [facility] CO2 23 22 - 32 mmol/L 01/07/2025 11:13 PM EDT [facility] ANION GAP 9 7 - 15 mmol/L 01/07/2025 11:13 PM EDT [facility] GLUCOSE 180(H) 70 - 120 mg/dL 01/07/2025 11:13 PM EDT [facility] Albumin 2.6(L) 3.8 - 5.0 g/dL 01/07/2025 11:13 PM EDT [facility] AST 111(H) 10 - 50 U/L 01/07/2025 11:13 PM EDT [facility] Comment:Results may be false ly elevated due to hemolysis. Alkaline Phosphatase 151(H) 35 - 130 U/L 01/07/2025 11:13 PM EDT [facility] Bilirubin, Total 2.1(H) <=1.2 mg/dL 01/07/2025 11:13 PM EDT LABORATORY C CALCIUM 8.1(L) 8.4 - 10.2 mg/dL 01/07/2025 11:13 PM EDT LABORATORY C Protein 5.5(L) 6.0 - 8.3 g/dL 01/07/2025 11:13 PM EDT [facility] ALT 43 10 - 50 U/L 01/07/2025 11:13 PM EDT [facility] Comment:Results may be false ly elevated due to hemolysis. 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 Question Answer Comments Discussion of Advance Directives occurred with: Patient Care Teams Interpreter Deaf Relationship Specialty Start Date End Date Krystian Palomo MD [address] [place] [address] [place] [address] PCP - General Family Medicine 12/22/23 documented as of this encounter
--- OUTSIDE RECORDS SUMMARY | 2025-01-13 12:12 | External Medical Summary | Summary of Care ---
Author Name Unknown Organization [facility] Address [address] [place] [address] Phone [phone] Care Team Providers Care Cnc Supervisor Name Role Phone Krystian Palomo MD Primary Care Provide r Reason for Visit * Reason Onset Date Comments Order Request 01/10/2025 Encounter Details Date Type Department Care Team (Late st Contact Info) Description 01/10/2025 Telephone Family Medicine [address] [phone] Krystian Palomo MD [address] [place] [address] [place] [address] Order Request Allergies Active Allergy Reactions Criticality Noted Date Comments Aspirin 01/28/2022 Other reaction(s): bloody nose Salicylates 08/08/2001 nose bleeds documented as of this encounter (statuses as of 01/10/2025) Medications Multivitamin Adult Oral Tablet daily . 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 07/05/2023 Hepatic encephalopathy 03/28/2022 Overview (12/06/2022): admitted [facility], ammonia 110 Aortic stenosis, moderate 01/21/2022 [...] as of this encounter (statuses as of 01/10/2025) Resolved Problems Problem Noted Date Diagnosed Date [...] as of this encounter (statuses as of 01/10/2025) Immunizations Name Administration Dates Next Due COVID-19 [...] file Not on file Not on file COMPLIANCE COORDINATOR Not on file Not on file [...] of Assessment Author No 12/05/2024 10:37 PM Luíca Taylor RN * Because of a physical, [...] Date Author No 12/05/2024 10:37 PM Lucía Talyor RN documented in this encounter Miscellaneous Notes [...] 11:17 AM EDT Good Morning, Nurse at [facility] called on mutual patient to request an order for wheel chair and hospital bed. Please call patients sister Snow Spencer at [phone] to discuss. Thank you XIOMARA Maurer documented in this encounter Plan of Treatment Upcoming Encounters Date Type Department Care Team (Late st Contact Info) Description 01/14/2025 10:30 AM EDT Office Visit [facility]enterology, [facility] [place] [address] Ren Pineda CRNP [address] [place] [address] 01/23/2025 3:00 PM EDT Office Visit Pharmacy, [address] [place] [address] [place] [address] 03/10/2025 7:20 AM EDT Office Visit Family Medicine [address] [place] [phone] Krystian Palomo MD [address] [place] [address] [place] [address] 03/20/2025 10:30 AM EDT Office Visit Cardiology, [facility] [address] [place] [address] Chino Carrillo PA-C [address] [place] [address] 04/18/2025 10:30 AM EDT Office Visit Gastroenterology, [facility] [address] [place] [address] Ren Pineda CRNP [address] [place] [address] 06/02/2025 10:00 AM EDT Office Visit Family Medicine [address] [place] [phone] Krystian Palomo MD [address] [place] [address] [place] [address] 09/11/2025 2:00 PM EST Imaging Radiology [address] [place] [address] Scheduled Procedures Name Priority Associated Diagnoses Date/Ti [...] encounter Medical Devices Implanted Type Area Electrical Construction Project Manager Device Identifier Shelf Expiration Date Model / Serial / Lot Lipiodol Injection - [id number] Implanted:Qty: 1 on 08/02/2023 at [facility] [employer] 04/28/2026 [id number] Syr Pf 2ml Embospheres 100-300 - [id number] Implanted:Qty: 1 on 08/02/2023 at [facility] [employer] [id number] 02/26/2026 S220GH / / [id number] Syr Pf 2ml Embospheres 100-300 - [id number] Implanted:Qty: 1 on 04/11/2024 at [facility] [employer] [facility] [id number] 12/27/2026 S220GH / / [id number] Lipiodol Injection - [id number] Implanted:Qty: 1 on 04/11/2024 at [facility] [employer] [id number] / documented as of this encounter Advance Directives * Full Code (Latest Code Status on File) Date Activated Date Inactivated Comments 12/05/2024 11:24 PM 12/07/2024 5:18 PM This order re flects the patients wishes and were consensually agreed upon. Question Answer Comments Discussion of Advance Directives occurred with: Patient Care Teams Cnc Supervisor Relationship Specialty Start Date End Date Krystian Palomo MD [address] [place] [address] [place] [address] PCP - General Family Medicine 12/22/23 documented as of this encounter
--- OUTSIDE RECORDS SUMMARY | 2025-01-13 12:13 | External Medical Summary | Summary of Care ---
Author Name Unknown Organization [facility] Address [address] [place] [address] Phone [phone] Care Team Providers Care Wood Router Hand Name Role Phone Krystian Palomo MD Primary Care Provide r Reason for Visit * Reason Onset Date Comments Test Results 01/09/2025 Encounter Details Date Type Department Care Team (Late st Contact Info) Description 01/09/2025 Telephone Family Medicine [address] [phone] Krystian Palomo MD [address] [place] [address] [place] [address] Test Results Allergies Active Allergy Reactions Criticality Noted Date Comments Aspirin 01/28/2022 Other reaction(s): bloody nose Salicylates 08/08/2001 nose bleeds documented as of this encounter (statuses as of 01/09/2025) Medications Multivitamin Adult Oral Tablet daily . 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 They told him his sodium was low there. He is home now. I checked with Dr. Dobson and he still wants him to have the labs check Monday. * Addendum Note - Krystian Palomo MD - 01/09/2025 8:13 AM EDTAddended by: KRYSTIAN PALOMO on: 01/09/2025 08:13 AM Modules accepted: Orders * Telephone Encounter - Krystian Palomo MD - 01/09/2025 8:07 AM EDT Please call the pt Your sodium is lower than previous value - if you having any dizziness or confusion I recommend ER visit I would like to repeat the lab Monday. Clinical note: - pt has been having low Sodium for 1 month likely 2/2 fluid overload from cirrhosis documented in this encounter Plan of Treatment Upcoming Encounters Date Type Department Care Team (Late st Contact Info) Description 01/14/2025 10:30 AM EDT Office Visit Gastroenterology, [facility] [address] [place] [address] Ren Pineda CRNP [address] [place] [address] 01/23/2025 3:00 PM EDT Office Visit Pharmacy, [address] [place] [address] [place] [address] 03/10/2025 7:20 AM EDT Office Visit Family Medicine [address] [place] [phone] Krystian Palomo MD [address] [place] [address] [place] [address] 03/20/2025 10:30 AM EDT Office Visit Cardiology, [facility] [address] [place] [address] Chino Carrillo PA-C [address] [place] [address] 04/18/2025 10:30 AM EDT Office Visit Gastroenterology, [facility] [address] [place] [address] Ren Pineda CRNP [address] [place] [address] 06/02/2025 10:00 AM EDT Office Visit Family Medicine [address] [place] [phone] Krystian Palomo MD [address] [place] [address] [place] [address] 09/11/2025 2:00 PM EST Imaging Radiology [address] [place] [address] Scheduled Orders Name Type Priority Associated Diagnoses Orde r Schedule BASIC METABOLIC PANEL Lab Routine HTN, goal below 140/90 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) Expected: 01/13/2025, Expires: 01/09/2026 Scheduled Procedures Name Priority Associated Diagnoses Date/Ti [...] this encounter Medical Devices Implanted Type Area Admiralty Lawyer Device Identifier Shelf Expiration Date Model / Serial / Lot Lipiodol Injection - [id number] Implanted:Qty: 1 on 08/02/2023 at [facility] [employer] 04/28/2026 03375-28 \[id number] Syr Pf 2ml Embospheres 100-300 - [id number] Implanted:Qty: 1 on 08/02/2023 at [facility] [employer] [id number] 02/26/2026 S220GH / / [id number] Syr Pf 2ml Embospheres 100-300 - [id number] Implanted:Qty: 1 on 04/11/2024 at [facility] [employer] [id number] 12/27/2026 S220GH / / [id number] Lipiodol Injection - [id number] Implanted:Qty: 1 on 04/11/2024 at [facility] KYLER LAU [address]45 documented as of this encounter Visit Diagnoses Diagnosis HTN, goal below 140/90- Primary Unspecified essential hypertension 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 Question Answer Comments Discussion of Advance Directives occurred with: Patient Care Teams Wood Router Hand Relationship Specialty Start Date End Date Krystian Palomo MD [address] [place] [address] [place] [phone] PCP - General Family Medicine 12/22/23 documented as of this encounter
--- OUTSIDE RECORDS SUMMARY | 2025-01-13 12:13 | External Medical Summary | Summary of Care ---
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 Not on file Not [...] encounter Miscellaneous Notes * Addendum Note - Krystian Palomo MD [...] 01/14/2025 10:30 AM EDT Office Visit Gastroenterology, [facility] [address] [address] Ren Pineda CRNP [address] [place] [address] 01/23/2025 3:00 PM EDT Office Visit Pharmacy, [address] [place] [address] [place] [address] 03/10/2025 7:20 AM EDT Office Visit [address] [place] [phone] Krystian Palomo MD [address] [place] [address] [place] [address] 03/20/2025 10:30 AM EDT Office Visit Cardiology, [facility] [address] [address] Chino Carrillo PA-C [address] [place] [address] 04/18/2025 10:30 AM EDT Office Visit Gastroenterology, [facility] [address] [address] Ren Pineda CRNP [address] [place] [address] 06/02/2025 10:00 AM EDT Office Visit Family [address] [place] [phone] Krystian Palomo MD [address] [place] [address] [place] [address] 09/11/2025 2:00 PM EST Imaging Radiology [address] [place] [address] Scheduled Orders Name Type Priority Associated Diagnoses [...] this encounter Medical Devices Implanted Type Area Job Training Supervisor Device Identifier Shelf Expiration Date Model / Serial / Lot Lipiodol Injection - [id number] Implanted:Qty: 1 on 08/02/[address] [facility] [employer] 04/28/2026 72703-23 \[id number] Syr Pf 2ml Embospheres 100-300 - [id number] Implanted:Qty: 1 on 08/02/2023 at [facility] [employer] [id number] 02/26/2026 S220GH / / [id number] Syr Pf 2ml Embospheres 100-300 - [id number] Implanted:Qty: 1 on 04/11/2024 at [facility] [employer] [id number] 12/27/2026 S220GH / / [id number] Lipiodol Injection - [id number] Implanted:Qty: 1 on 04/11/2024 at [facility] [employer] 10024-52 documented as of this encounter Visit Diagnoses [...] Advance Directives occurred with: Patient Care Teams Tactical Deception Plans Officer Relationship Specialty Start Date End Date Krystian Palomo MD [address] [place] [address] [place] [phone] PCP - General Family Medicine 12/22/23 documented as of this encounter
--- OUTSIDE RECORDS SUMMARY | 2025-01-13 12:13 | External Medical Summary | Summary of Care ---
Author Name Unknown Organization [facility] Address [address] [place] [address] Phone [phone] Care Team Providers Care Triage Nurse Name Role Phone Krystian Palomo MD Primary Care Provide r Reason for Visit * Reason Onset Date Comments Order Request 01/10/2025 Encounter Details Date Type Department Care Team (Late st Contact Info) Description 01/10/2025 Telephone Family Medicine [address] [phone] Krystian Palomo MD [address] [place] [address] [place] [address] Order Request Allergies Active Allergy Reactions [...] Hepatic encephalopathy 03/28/2022 Overview (12/06/2022): admitted [facility], ammonia 110 Aortic [...] file Not on file 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 Please call patients sister Snow Spencer at [phone] to discuss. Thank you XIOMARA Maurer documented in this encounter Plan of Treatment Upcoming Encounters Date Type Department Care Team (Late st Contact Info) Description 01/14/2025 10:30 AM EDT Office Visit [facility]enterology, [facility] [place] [address] Ren Pineda CRNP [address] [place] [address] 01/23/2025 3:00 PM EDT Office Visit Pharmacy, [address] [place] [address] [place] [address] 03/10/2025 7:20 AM EDT Office Visit Family Medicine [address] [place] [phone] Krystian Palomo MD [address] [place] [address] [place] [address] 03/20/2025 10:30 AM EDT Office Visit Cardiology, [facility] [address] [place] [address] Chino Carrillo PA-C [address] [place] [address] 04/18/2025 10:30 AM EDT Office Visit Gastroenterology, [facility] [address] [place] [address] Ren Pineda CRNP [address] [place] [address] 06/02/2025 10:00 AM EDT Office Visit Family Medicine [address] [place] [phone] Krystian Palomo MD [address] [place] [address] [place] [address] 09/11/2025 2:00 PM EST Imaging Radiology [address] [place] [address] Scheduled Procedures Name Priority Associated Diagnoses Date/Ti [...] this encounter Medical Devices Implanted Type Area Salesforce Administrator Device Identifier Shelf Expiration Date Model / Serial / Lot Lipiodol Injection - [id number] Implanted:Qty: 1 on 08/02/2023 at [facility] [employer] 04/28/2026 98177-08 \[id number] Syr Pf 2ml Embospheres 100-300 - [id number] Implanted:Qty: 1 on 08/02/2023 at [facility] [employer] [id number] 02/26/2026 S220GH / / [id number] Syr Pf 2ml Embospheres 100-300 - [id number] Implanted:Qty: 1 on 04/11/2024 at [facility] [employer] [facility] [id number] 12/27/2026 S220GH / / [id number] Lipiodol Injection - [id number] Implanted:Qty: 1 on 04/11/2024 at [facility] [employer] 78065-98 / documented as of this encounter Advance Directives * Full Code (Latest Code Status on File) Date Activated Date Inactivated Comments 12/05/2024 11:24 PM 12/07/2024 5:18 PM This order re flects the patients wishes and were consensually agreed upon. Question Answer Comments Discussion of Advance Directives occurred with: Patient Care Teams Triage Nurse Relationship Specialty Start Date End Date Krystian Palomo MD [address] [place] [address] [place] [address] PCP - General Family Medicine 12/22/23 documented as of this encounter
--- OUTSIDE RECORDS SUMMARY | 2025-01-13 12:13 | External Medical Summary | Summary of Care ---
Author Name Unknown Organization [facility] Address [address] [place] [address] Phone [phone] Care Team Providers Care Lead Inspector Name Role Phone Krystian Palomo MD Primary Care Provide r Reason for Visit * Reason Onset Date Comments Test Results 01/09/2025 Encounter Details Date Type Department Care Team (Late st Contact Info) Description 01/09/2025 Telephone Family Medicine [address] [phone] Krystian Palomo MD [address] [place] [address] [place] [address] Test Results Allergies Active Allergy Reactions [...] Hepatic encephalopathy 03/28/2022 Overview (12/06/2022): admitted [facility], ammonia 110 Aortic stenosis, [...] file Not on file 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 Not on file [...] 01/14/2025 10:30 AM EDT Office Visit Gastroenterology, [facility] [address] [address] Ren Pineda CRNP [address] [place] [address] 01/23/2025 3:00 PM EDT Office Visit Pharmacy, [address] [place] [address] [place] [address] 03/10/2025 7:20 AM EDT Office Visit [address] [place] [phone] Krystian Palomo MD [address] [place] [address] [place] [address] 03/20/2025 10:30 AM EDT Office Visit Cardiology, [facility] [address] [address] [address] Chino Carrillo PA-C [address] [place] [address] 04/18/2025 10:30 AM EDT Office Visit Gastroenterology, [facility] [address] [address] [address] Ren Pineda CRNP [address] [place] [address] 06/02/2025 10:00 AM EDT Office Visit Family [address] [place] [phone] Krystian Palomo MD [address] [place] [address] [place] [address] 09/11/2025 2:00 PM EST Imaging Radiology [address] [place] [address] Scheduled Orders Name Type Priority Associated Diagnoses [...] this encounter Medical Devices Implanted Type Area Psychology Teacher Device Identifier Shelf Expiration Date Model / Serial / Lot Lipiodol Injection - [id number] Implanted:Qty: 1 on 08/02/2023 at [facility] [employer] 04/28/2026 77032-65 \[id number] Syr Pf 2ml Embospheres 100-300 - [id number] Implanted:Qty: 1 on 08/02/2023 at [facility] [employer] [id number] 02/26/2026 S220GH / / [id number] Syr Pf 2ml Embospheres 100-300 - [id number] Implanted:Qty: 1 on 04/11/2024 at [facility] [employer] [id number] 12/27/2026 S220GH / / [id number] Lipiodol Injection - [id number] Implanted:Qty: 1 on 04/11/2024 at [facility] [employer] [address]-10 documented as of this encounter Visit Diagnoses [...] Advance Directives occurred with: Patient Care Teams Lead Inspector Relationship Specialty Start Date End Date Krystian Palomo MD [address] [place] [address] [place] [phone] PCP - General Family Medicine 12/22/23 documented as of this encounter
--- OUTSIDE RECORDS SUMMARY | 2025-01-13 12:13 | External Medical Summary | Summary of Care ---
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) Procedures IR VENOUS TIPS Ren Pineda CRNP [address] [place] [address] Phone: tel: fax: Referral ID Status Reason Start Date Expiration Date V isits Requested Visits Authorized [id number] Pending Review 01/24/2025 999 999 Reason for Visit * Reason Onset Date Comments Ascites 01/10/2025 Referral 01/10/2025 Cirrhosis 01/10/2025 Encounter Details Date Type Department Care Team (Late st Contact Info) Description 01/10/2025 Telephone Gastroenterology, [facility] [address] [place] [phone] Ren Pineda CRNP [address] [place] [address] Ascites; Referral; Cirrhosis Allergies Active Allergy Reactions Criticality Noted [...] file Not on file 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 Addressed his request for paracentesis (asking for more often than weekly). Updated on HCC radiation tx. He verified that he is very interested in liver transplant. I expressed to him, that he needs to beable to make it to his appointments here and go to [place] sometimes if he is going to pursue liver transplant. He seemed unaware that he had missed his most recent appointment here with a student life dean. Previously he was unable to get a ride to [place]. Now says he can arrange transportation to [place]. We'll contact him to see hepatology here at . Ascites: I recommend TIPs procedure in [place]. He had 2 admissions last year for hepatic encephalopathy, none yet in 2024. Undergoing tips does increase his likelihood of having more frequent hepatic encephalopathy. However, I think benefits of tips would outweigh risk. Currently undergoing paracentesis w removal of 7L every week and approx 2-3 L remaining per [facility] radiology report. Will place IR consult to consider TIPs. On Torsemide 20mg daily, Midodrine 25mg daily. Has been intolerant of furosemide/spironolactone in the past (hypotension, CKD). HCC: He is currently receiving radiation through Dr. Oleary at [facility], has completed 2 of 5 tx. (See telephone encounters on 12/04/24, Dr. Magaña planning to f/u w pt). Yeimy - pt still interesting in liver transplant. Anything specific holding him up from being listed? Dr. Magaña - can pt have a TIPs as we go forward with tx for HCC? documented in this encounter Plan of Treatment Upcoming Encounters Date Type Department Care Team (Late st Contact Info) Description 01/14/2025 10:30 AM EDT Office Visit [facility], [facility] [place] [address] Ren Pineda CRNP [address] [place] [address] 01/23/2025 3:00 PM EDT Office Visit Pharmacy, [address] [place] [address] [place] [address] 03/10/2025 7:20 AM EDT Office Visit [address] [place] [phone] Krystian Palomo MD [address] [place] [address] [place] [address] 03/20/2025 10:30 AM EDT Office Visit Cardiology, [facility] [place] [address] Chino Carrillo PA-C [facility] [place] [address] 04/18/2025 10:30 AM EDT Office Visit Gastroenterology, [facility] [place] [address] Ren Pineda CRNP [facility] [place] [address] 06/02/2025 10:00 AM EDT Office Visit Family [address] [place] [phone] Krystian Palomo MD [address] [place] [address] [place] [address] 09/11/2025 2:00 PM EST Imaging Radiology [address] [place] [address] Scheduled Orders Name Type Priority Associated Diagnoses Orde r Schedule IR VENOUS TIPS Medical Imaging Routine Cirrhosis of liver with ascites, unspecified hepatic cirrhosis type (HCC) 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) Expected: 01/24/2025, Expires: 02/10/2026 Scheduled Procedures Name Priority Associated Diagnoses Date/Ti [...] this encounter Medical Devices Implanted Type Area Flight Operations Manager Device Identifier Shelf Expiration Date Model / Serial / Lot Lipiodol Injection - [id number] Implanted:Q[facility] 04/28/2026 [address]70-59 [id number] Syr Pf 2ml Embospheres 100-300 - [id number] Implanted:Qty: 1 [facility] [id number] 02/26/2026 S220GH / / [id number] Syr Pf 2ml Embospheres 100-300 - [id number] Implanted:Qty: 1 [facility] [id number] 12/27/2026 S220GH / / [id number] Lipiodol Injection - [id number] Implanted:Qty: 1 on 04/11/[address] 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 Question Answer Comments Discussion of Advance Directives occurred with: Patient Care Teams Aircraft Structural Repair Mechanic Relationship Specialty Start Date End Date Krystian Palomo MD [address] [place] [address] [place] [phone] PCP - General Family Medicine 12/22/23 documented as of this encounter
[2025-01-13] MEDS ORDERED: SODIUM CHLORIDE 0.9% 100 ML IV PRN (12:36)
[2025-01-13] MEDS ORDERED: SODIUM CHLORIDE 0.9% 50 ML IV PRN (12:36)
--- NOTE | 2025-01-13 12:36 | History & Physical Report ---
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 Work-up in the ED revealed a large left pleural effusion with associated collapse of the left lung so patient was referred for admission. He was also noted to have acute worsening of chronic anemia. #Cirrhosis due to MASH - MELD today = 24 #Refractory ascites requiring recurrent paracentesis #Large left pleural effusion - likely related to massive ascites with translocation of fluid from abdominal cavity into pleural space - Admit to PCU - Consult pulmonology for assistance with management of effusion - Hold nadolol due to recurrent falls and borderline hypotension - Low sodium diet - GI consult for assistance with management #Recurrent blood loss anemia #Chronic thrombocytopenia - due to cirrhosis - Spoke with [facility] who manages patient's cirrhosis as outpatient - will transfuse one unit of PRBCs and monitor for stability. Will give IV furosemide x 1 dose post-transfusion - BID PPI #Hepatic encephalopathy - Continue lactulose, Xifaxan #Left rib fractures from fall last week - Pain control, incentive spirometry -rib fracture order set ordered #Insulin-requiring Type 2 DM - Insulin sliding scale - Diabetic diet - BSG ACHS #BPH - Chronic, stable - continue tamsulosin - Monitor for urinary retention #Chronic hyponatremia - Continue sodium tablets #Moderate aortic stenosis #Pulmonary hypertension - Keep outpatient f/u with cardiology #History of HCC/liver lesions -Patient received embolization of the right lower lobe lesion in 07/2023 -Repeat MRI in 01/2024 showed treatment cavity enhancement patient subsequently treated with TACE -MRI on 11/14/2024 showed abnormalities in hepatic segment 7 and currently the plan for SBRT -Patient says plan for SBRT in December Pt seen and reviewed with collaborating physician, Dr. Ferreira. Plan of care discussed and as outlined above. Code status: full code DVT prophylaxis: SCDs in view of thrombocytopenia, recurrent blood loss anemia. Donald Arredondo PA-C History of Present Illness Chief Complaint: lethargy Primary Care Provider: Krystian Palomo MD This is a 59 y/o male with liver cirrhosis secondary to MASH, recurrent ascites, hx hepatic encephalopathy, hx HCC s/p TACE, insulin-requiring DM2, moderate aortic stenosis, HTN, and other history as outlined below who presented to the ED today from where he was undergoing routine paracentesis and was noted be lethargic. Additionally, outpatient labs showed worsening of his chronic anemia. Pt was most recently admitted to [facility] 12/29-01/01/25 with shortness of breath and acute blood loss anemia. Transfused with improvement of symptoms. Since being home, pt reports at least two falls, being seen in the ED on 01/08 for one of the falls. Last night, pt states he was going to sit down on the couch with the assistance of a walker for balance then the walker caught and tipped over, resulting in his falling to the floor. Since that fall, pt reports pain in left chest with deep breathing but denies shortness of breath. Some dizziness at times but denies syncopal event. Pt reports removal of 7L of fluid with routine paracentesis this morning. He reports improvement in abdominal distention and discomfort since procedure. He denies fevers, chills, N/V, cough. He is continuing to pursue work-up for transplant. EGD 12/30/24 (Dr. Ramos) - normal esophagus; portal hypertensive gastropathy, congested duodenal mucosa with vascular abnormalities c/w portal duodenopathy. Allergies Allergy/AdvReac Type Severity Reaction Status Date / Time aspirin AdvReac Intermediate NOSE Verified 01/08/25 19:48 BLEEDS--IF TAKES REGULARLY salicylates AdvReac Intermediate NOSE BLEEDS Verified 01/08/25 19:48 Home Medications Medication Instructions Recorded Confirmed Type allopurinol 300 mg tablet 300 mg PO DAILY 12/29/24 01/13/25 History ascorbic acid (vitamin C) 1,000 mg 1 g PO DAILY 12/29/24 01/13/25 History tablet atorvastatin 20 mg tablet 20 mg PO DAILY 12/29/24 01/13/25 History insulin degludec 100 unit/mL (3 10 unit subcut DAILY 12/29/24 01/13/25 History mL) subcutaneous pen lactulose 10 gram/15 mL oral 45 ml PO TID 12/29/24 01/13/25 History solution magnesium chloride 64 mg 64 mg PO DAILY 12/29/24 01/13/25 History (magnesium chloride) tablet,delayed release (Mag-Delay) midodrine 2.5 mg tablet 5 mg PO TID 12/29/24 01/13/25 History multivitamin 1 tab PO DAILY 12/29/24 01/13/25 History potassium chloride 10 mEq 20 meq PO BID 12/29/24 01/13/25 History tablet,extended release(part/cryst) rifaximin 550 mg tablet (Xifaxan) 550 mg PO BID 12/29/24 01/13/25 History sodium chloride 1,000 mg soluble 1,000 mg PO BID 12/29/24 01/13/25 History tablet tamsulosin 0.4 mg capsule 0.4 mg PO DAILY 12/29/24 01/13/25 History torsemide 20 mg tablet 20 mg PO DAILY 12/29/24 01/13/25 History pantoprazole 40 mg tablet,delayed 40 mg PO BID #60 tabs 12/31/24 01/13/25 Rx release nadolol 40 mg tablet 10 mg (1/4 x 40 mg) PO QAM #30 tabs 01/01/25 01/13/25 Rx Lactobacillus acidophilus 10 10,000 mmu cells PO BID 01/08/25 01/13/25 History billion cell capsule (Probiotic) docusate sodium 100 mg capsule 100 mg PO BID 01/08/25 01/13/25 History mupirocin 2 % topical ointment 1 applic topical TID PRN Skin 01/08/25 01/13/25 History Irritation oxycodone 5 mg tablet 5 mg PO Q6H PRN pain #10 tabs 01/08/25 01/13/25 Rx Past Med/Surg History Problem List (Updated 01/13/25 @ 15:16 by Chino Zuniga DO) Pleural effusion (Acute) Pleural effusion on left Closed rib fracture (Acute) Contusion of knee, left (Acute) Lumbar contusion (Acute) Anemia SOB (shortness of breath) Abdominal ascites (Acute) Hypoalbuminemia (Acute) Hypokalemia (Acute) Hernia, umbilical (Acute) Thyroid lesion Mass of soft tissue of neck Acute dyspnea (Acute) Pleural effusion (Acute) Pleural effusion Hypokalemia (Acute) Hypomagnesemia (Acute) Constipation (Acute) Abdominal pain (Acute) Hyponatremia Orthostatic hypotension Dizziness (Acute) Medical non-compliance (Acute) Hyperammonemia (Acute) Ascites (Acute) Urinary retention Cirrhosis (Acute) Morbid obesity Hepatic encephalopathy 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 "if i get up to fast". S/P abdominal paracentesis Fracture of rib of right side 2013 Anaplasmosis 2019 Acute hepatic encephalopathy Cardiac murmur HX Hypertension Right rib fracture hx ~. Surgical History History of esophagogastroduodenoscopy (EGD) History of colonoscopy Family History Mother History of colonoscopy Cancer Colon Brother Family history of diabetes mellitus Brother Family history of diabetes mellitus Grandmother (Paternal) Family history of diabetes mellitus Other No family history of adverse response to anesthesia Social History Smoking Status: Former smoker Tobacco Type: Smokeless Tobacco (Dip or Chew) packs per day: 0.25; Second Hand Exposure: No; Do You Dip or Chew Tobacco: No; Tobacco Cessation Education Requested by Patient: No Hx Alcohol Use: No Hx Substance Use: No Preferred Language: Slovenian Communication Ability: Effective Hearing Ability: Normal Personal Financial Planner Required: No Beliefs That Will Affect Care: None marital status: Single Current Living Situation: Alone Current Living Situation Comment: With brother and mother Other Information That Helps Us Care for You: No Feels Safe at Home: Yes Safety Concerns: Feels Safe At This Time Assistive Devices: Walker Review of Systems Review of Systems: All systems reviewed & are unremarkable except as noted in Subjective Physical Exam Physical Exam: General: awake, alert, NAD HEENT: moist oral mucosa Neck: supple, trachea midline Heart: RRR, +murmur Lungs: clear on the right, markedly diminished on the left Abdomen: softly distended, paracentesis site in LLQ with dressing C/D/I, +BS Extremities: trace LLE edema, distal pulses intact and equal Skin: warm, dry, mild jaundice; left knee with scabbed abrasion, ecchymosis Neurologic: Ox3, drowsy at times during examination but easily arouses to verbal stimuli Results & Data Results & Data Vital Signs (Past 12 Hours) Vital Signs Temp Pulse Pulse Resp BP BP Pulse Ox 01/13/25 11:30 94 H 20 96/60 L 96 01/13/25 09:33 36.8 C 93 H 18 97/58 L 93 O2 Del Method 01/13/25 11:30 01/13/25 09:33 Room Air Laboratory Results Lab Results 01/13/25 01/13/25 Range/Units 09:42 09:58 WBC 7.35 (4.8-10.8) K/ul RBC 1.82 L (4.70-6.10) M/uL Hgb 6.3 L* (14.0-18.0) g/dl Hct 18.9 L* (42.0-52.0) % MCV 103.8 H (80.0-100.0) fL MCH 34.6 H (25.0-34.0) pg MCHC 33.3 (32.0-36.0) g/dL RDW Std Deviation 79.5 H (36.4-46.3) fL RDW Coeff of Polo 21.4 H (11.5-14.5) % Plt Count 71 L (130-400) K/uL MPV 10.6 (9.4-12.4) fL Immature Gran % (Auto) 0.7 % Neut % (Auto) 78.3 % Lymph % (Auto) 3.5 % Cameron % (Auto) 14.7 % Eos % (Auto) 2.7 % Baso % (Auto) 0.1 % Neut # (Auto) 5.75 (1.40-6.50) K/uL Lymph # (Auto) 0.26 L (1.20-3.40) K/uL Cameron # (Auto) 1.08 H (0.11-0.59) K/uL Eos # (Auto) 0.20 (0.00-0.50) K/uL Baso # (Auto) 0.01 (0.00-0.20) K/uL Immature Gran # (Auto) 0.05 (0.01-0.20) K/uL Polychromasia 1+ Anisocytosis Present PT 16.7 H (9.0-12.0) Seconds INR 1.6 H (0.9-1.1) APTT 34 H (21-31) Seconds PTT Ratio 1.3 Sodium 125 L (136-145) mmol/L Potassium 3.7 (3.5-5.1) mmol/L Chloride 92 L (98-107) mmol/L Carbon Dioxide 28 (21-32) mmol/L Anion Gap 5 (3-11) BUN 25 H (6-23) mg/dl Creatinine 0.97 (0.6-1.4) mg/dl Est Cr Clr Drug Dosing 82.6 ml/min eGFR 89.37 BUN/Creatinine Ratio 25.8 H (10-20) Glucose 122 H (70-99(Fasting)) mg/dl Calcium 8.3 L (8.6-10.3) mg/dl Total Bilirubin 4.1 H (0.2-1.0) mg/dl AST 36 (13-39) U/L ALT 33 (7-52) U/L Alkaline Phosphatase 117 H (34-104) U/L Ammonia 16.0 L (18-72) umol/L Total Protein 5.3 L (6.0-8.3) gm/dl Albumin 2.8 L (3.4-5.0) gm/dl Globulin 2.5 (2.5-4.0) gm/dl Albumin/Globulin Ratio 1.1 (0.9-2) Blood Type A Positive Antibody Screen NEGATIVE Diagnostic Findings Chest X-Ray 01/13/25 09:39 XR chest 1V portable CLINICAL HISTORY: s/p fall COMPARISON STUDY: 12/28/2024 FINDINGS: There is interval complete opacification of the left hemithorax. Right lung remains well aerated. No pneumothorax seen. Cardiac silhouette is mostly obscured. There are multiple lateral left lower rib fractures. IMPRESSION: 1. Left-sided lower rib fractures. 2. Complete opacification of the left hemithorax could represent large pleural effusion, consolidation, or left airway obstruction and left lung collapse. ACT 112: Negative or not required by law. Electronically signed by: Demario Cuadra M.D. 01/13/2025 10:[address] 01/13/25 10:[address] WITH CONTRAST CT DOSE: 1032.09 mGy.cm HISTORY: eval L lung TECHNIQUE: Multiaxial CT images of the chest were performed following the IV administration of 90 cc of Optiray. A dose lowering technique was utilized adhering to the principles of ALARA. COMPARISON STUDY: 12/29/2024 FINDINGS: There is a large left pleural effusion, increased in size. There is complete collapse of the left lung. No airway obstruction seen. There is no consolidation or pleural effusion on the right. No pneumothorax. There is stable mild subcarinal lymphadenopathy. Findings of cirrhosis, portal hypertension, varices, and small amount of ascites are seen at the visualized upper abdomen. There are nondisplaced fractures laterally at the left sixth and seventh ribs which appear acute to recent subacute. There are mild thoracic spine degenerative changes. IMPRESSION: 1. Increased size of large left pleural effusion with complete collapse of the left lung. 2. Nondisplaced acute to recent subacute lower left rib fractures. 3. Otherwise as described. ACT 112: Negative or not required by law. Electronically signed by: Demario Cuadra M.D. 01/13/2025 11:38 AM Medications Administered Discontinued Medications Ioversol (Optiray 320 100ml) 94 ml IV ONCE ONE Stop: 01/13/25 11:14 Last Admin: 01/13/25 11:14 Dose: 94 ml Documented By: BRM Supervising Physician Co-Signing Physician Notes Patient seen and examined at bedside. Familiar to this provider. Patient has low Hgb and requires transfusion. Feels about his baseline at this time. Had paracentesis this morning. Denies lightheadedness, mechanical falls x3 at home per patient. Denies SOB On exam, jaundiced, s/p paracentesis, crackles in left lung anne, no external evidence of bleeding. Large pleural effusion on left side likely 2/2 refractory translocation of ascites, less likely infectious or other etiology given symptomology and labs. MeldNa 24, however symptoms suggests worsening cirrhosis, perhaps worse than Meld Na reflects. Suspect acute blood loss anemia is 2/2 portal enteropathy and blood destruction in setting of severe cirrhosis. Plan is for transfusion Hgb goal>7, pulmonary consult for potential pleurx on left side (may require VATS in future pending trajectory), GI consult for assistance with management of cirrhosis and blood loss. Will need consideration of TIPS as bridge to transplant given worsening cirrhosis symptoms. I have seen and discussed the case with the collaborating advanced practitioner. I agree with the above H&P. I have reviewed and confirmed the patients medical history, the findings on physical examination, and the patients diagnosis and treatment plan with Suzy Arredondo PA-C and agree with the information documented. I spent a total of 20 minutes coordinating, documenting, and providing care for this patient excluding time spent in the performance of separately billed services. All of the aforementioned completed outside of collaborating with the assigned advanced practitioner for a full treatment plan. I have reviewed the advanced practitioner's documentation, and I agree with, and take responsibility for the plan of care (3) Diabetes mellitus, type 2 Diabetes mellitus complication status: with other specified complication Diabetes mellitus chcf insulin use: with chcf use Qualified Code(s): E11.69 - Type 2 diabetes mellitus with other specified complication; Z79.4 - MCFP (current) use of insulin (4) Closed rib fracture Encounter type: subsequent encounter Fracture healing: with routine healing Laterality: left Rib fracture type: multiple ribs Qualified Code(s): S22.42XD - Multiple fractures of ribs, left side, subsequent encounter for fracture with routine healing (5) Abdominal ascites Ascites type: other type Qualified Code(s): R18.8 - Other ascites (9) BPH (benign prostatic hyperplasia) Lower urinary tract symptom presence: unspecified whether lower urinary tract symptoms present Qualified Code(s): N40.0 - Benign prostatic hyperplasia without lower urinary tract symptoms
[2025-01-13] MEDS: ACETAMINOPHEN 325 MG TAB PO ONE (13:17)
[2025-01-13] MEDS: diphenhydrAMINE Capsule 25 MG CAP PO ONE (13:17)
[2025-01-13] MEDS ORDERED: NALOXONE HCL 0.4 MG/1 ML VIAL/CARP IV PRN (13:27)
[2025-01-13] MEDS: FUROSEMIDE INJ 20 MG/2 ML VIAL IV ONE (14:14)
[2025-01-13] MEDS ORDERED: DEXTROSE 50% 50 ML SYRINGE IV PRN (16:14)
[2025-01-13] MEDS ORDERED: CARBOHYDRATES FOR HYPOGLYCEMIA PO PRN (16:14)
[2025-01-13] MEDS ORDERED: GLUCAGON FOR INJ 1 MG VIAL SQ PRN (16:14)
[2025-01-13] MEDS ORDERED: MUPIROCIN 2% OINT 22 GM TUBE TOP PRN (16:14)
[2025-01-13] MEDS ORDERED: GLUCOSE 10 TAB/TUBE PO PRN (16:14)
[2025-01-13] MEDS ORDERED: GLUCOSE 40% GEL 15 GM TUBE PO PRN (16:14)
[2025-01-13] MEDS: INSULIN ASPART PER UNIT CHARGE SC SCH (16:46)
--- NOTE | 2025-01-13 17:49 | Procedure Note ---
Procedure Note Date of Service January 13, 2025 Procedure: Pigtail chest tube insertion Portable Sawyer: Dr. Morgan Colbert Indication: Large left-sided pleural effusion Consent: Signed by patient and verified with timeout prior to procedure Anesthesia: 1% lidocaine without epinephrine local Procedure: Consent was verified and timeout performed. Appropriate imaging studies were reviewed prior to the procedure. Patient was placed in a seated position. Appropriate site above the diaphragm on the left midaxillary line fourth intercostal space for chest tube insertion was selected. The skin was prepped and draped in normal sterile fashion. Lidocaine was used for local analgesia. Cloudy serous fluid was aspirated via the finder needle. A small skin rodo was made with the scalpel and the catheter over the needle apparatus was advanced over the rib into the pleural space. With the help of guidewire and Seldinger technique, 14 Swedish pigtail catheter was inserted and connected to Pleur-evac. No air leak appreciated after that. Chest x-ray to follow Fluid was sent for labs, culture and cytology. The patient tolerated the procedure without obvious complication Complications: None Blood loss: Less than 1 cc. [facility] [place] Codes (Charges) Pulmonary/Thoracic Procedure 1: Pulmonary and Thoracic: 87499 Tube thoracostomy Tubes, Drains, and Vasc Access Procedure 1: Tubes, Drains, and Vasc Access: [id number] Ultrasound Guidance For Vascular Coding CPT Codes Pulmonary/Thoracic - Pulmonary and Thoracic: 42368 Tube thoracostomy ([id number]) Tubes, Drains, and Vasc Access - Tubes, Drains, and Vasc Access: [id number] Ultrasound Guidance For Vascular ([id number]) Additional Codes Date of Service (PG.SURGERY)
[2025-01-13 18:17] LABS: Appearance Pleural Fluid Cloudy; Color Pleural Fluid Yellow; RBC Pleural Fluid Auto 5000 /uL; Source Pleural Fluid Left Lung; WBC Pleural Fluid Auto 1404 /uL
[2025-01-13] MEDS: MIDODRINE HCL 2.5 MG TAB PO SCH (18:24)
[2025-01-13 18:32] LABS: Amylase Pleural Fluid < 10 U/L; Glucose Pleural Fluid 125 mg/dl; LDH Pleural Fluid 69 U/L; Total Protein Pleural Fluid < 3.0 gm/dl
[2025-01-13 18:48] LABS: Albumin Level 2.5 gm/dl (3.4-5.0); Total Protein 4.9 gm/dl (6.0-8.3)
--- OUTSIDE RECORDS SUMMARY | 2025-01-13 20:25 | External Medical Summary | Summary of Care ---
Author Name Unknown Organization [facility] Address [address] [facility] [address] Phone [phone] Care Team Providers Care Otr Van Cdl Truck Driver Name Role Phone Krystian Palomo MD Primary Care Provide r Reason for Visit * Reason Onset Date Comments Test Results Lab 01/13/2025 Encounter Details Date Type Department Care Team (Late st Contact Info) Description 01/13/2025 Telephone Gastroenterology, [facility] [address] [place] [address] Ren Pineda CRNP [address] [place] [id number] Test Results Lab Allergies Active Allergy Reactions Criticality Noted Date Comments Aspirin 01/28/2022 Other reaction(s): bloody nose Salicylates 08/08/2001 nose bleeds documented as of this encounter (statuses as of 01/13/2025) Medications Multivitamin Adult Oral Tablet daily . 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 Yvette, can you set this up? If not SOB/dizzy, it be arranged for the same day as his next paracentesis? * Telephone Encounter - Ana Root LPN - 01/13/2025 8:44 AM EDT Call received from Devorah at [facility] Lab. Critical results obtained: HGB- 6.9 HCT- 20.0 documented in this encounter Plan of Treatment Upcoming Encounters Date Type Department Care Team (Daniella Contact Info) Description 01/14/2025 10:30 AM EDT Office Visit Gastroenterology, [facility] [address] [place] [address] Ren Pineda CRNP [address] [place] [address] 01/23/2025 3:00 PM EDT Office Visit Pharmacy, [address] [place] [address] [place] [phone] 03/10/2025 7:20 AM EDT Office Visit Family Medicine [address] [place] [phone] Krystian Palomo MD [address] [place] [address] [place] [address] 03/20/2025 10:30 AM EDT Office Visit Cardiology, [facility] [address] [place] [address] Chino Carrillo PA-C [address] [place] [address] 04/18/2025 10:30 AM EDT Office Visit Gastroenterology, [facility] [address] [place] [address] Ren Pineda CRNP [address] [place] [address] 06/02/2025 10:00 AM EDT Office Visit Family Medicine [address] [place] [phone] Krystian Palomo MD [address] [place] [address] [place] [id number] 09/11/2025 2:00 PM EST Imaging Radiology [address] [place] [address] Scheduled Procedures Name Priority Associated Diagnoses Date/Ti [...] this encounter Medical Devices Implanted Type Area Line Production Cook Device Identifier Shelf Expiration Date Model / Serial / Lot Lipiodol Injection - [id number] Implanted:Q[facility] 04/[facility]/2026 [id number] Syr Pf 2ml Embospheres 100-300 - [id number] Implanted:Qty: 1 on [facility]02[facility]20[facility] [id number] 02/26/2026 [id number] / / [id number] Syr Pf 2ml Embospheres 100-300 - [id number] Implanted:Qty: 1 on 04/11/2024 at [facility] [employer] [id number] 12/27/2026 [id number] / / [id number] Lipiodol Injection - [id number] Implanted:Qty: 1 on 04/11/2024 at [facility] [email or web address] [id number] 2 / documented as of this encounter Advance Directives * Full Code (Latest Code Status on File) Date Activated Date Inactivated Comments 12/05/2024 11:24 PM 12/07/2024 5:18 PM This order re flects the patients wishes and were consensually agreed upon. Question Answer Comments Discussion of Advance Directives occurred with: Patient Care Teams Otr Van Cdl Truck Driver Relationship Specialty Start Date End Date Krystian Palomo MD [address] [place] [address] [place] [id number] PCP - General Family Medicine 12/22/23 documented as of this encounter
--- OUTSIDE RECORDS SUMMARY | 2025-01-13 20:25 | External Medical Summary | Summary of Care ---
Author Name Unknown Organization [facility] Address [address] [facility] [address] Phone [phone] Care Team Providers Care Consumer Recruiter Name Role Phone Krystian Palomo MD Primary Care Provide r Reason for Visit * Reason Onset Date Comments Test Results Lab 01/13/2025 Encounter Details Date Type Department Care Team (Late st Contact Info) Description 01/13/2025 Telephone Gastroenterology, [facility] [address] [place] [address] Ren Pineda CRNP [address] [place] [id number] Test Results Lab Allergies Active Allergy Reactions [...] 07/05/2023 Hepatic encephalopathy 03/28/2022 Overview (12/06/2022): admitted [facility], ammonia 110 Aortic stenosis, [...] file Not on file Not on file 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 Critical results obtained: HGB- 6.9 HCT- 20.0 documented in this encounter Plan of Treatment Upcoming Encounters Date Type Department Care Team (Daniella Contact Info) Description 01/14/2025 10:30 AM EDT Office Visit Gastroenterology, [facility] [address] [place] [address] Ren Pineda CRNP [address] [place] [address] 01/23/2025 3:00 PM EDT Office Visit Pharmacy, [address] [place] [address] [place] [address] 03/10/2025 7:20 AM EDT Office Visit Family Medicine [address] [place] [phone] Krystian Palomo MD [address] [place] [address] [place] [address] 03/20/2025 10:30 AM EDT Office Visit Cardiology, [facility] [address] [place] [address] Chino Carrillo PA-C [address] [place] [address] 04/18/2025 10:30 AM EDT Office Visit Gastroenterology, [facility] [address] [place] [address] Ren Pineda CRNP [address] [place] [address] 06/02/2025 10:00 AM EDT Office Visit Family Medicine [address] [place] [phone] Krystian Palomo MD [address] [place] [address] [place] [address] 09/11/2025 2:00 PM EST Imaging Radiology [address] [place] [address] Scheduled Procedures Name [...] this encounter Medical Devices Implanted Type Area Solar Energy Systems Engineer Device Identifier Shelf Expiration Date Model / Serial / Lot Lipiodol Injection - [id number] Implanted:Q[facility]/2026 [id number] Syr Pf 2ml Embospheres 100-300 - [id number] Implanted:Qty: 1 on [facility]/02/2023 [facility] [id number] 02/26/2026 S220GH / / [id number] Syr Pf 2ml Embospheres 100-300 - [id number] Implanted:Qty: 1 on 04/11/2024 at [facility] [employer] [id number] 12/27/2026 S220GH / / [id number] Lipiodol Injection - [id number] Implanted:Qty: 1 on 04/11/2024 at [facility] [employer] 69144-95 2 / documented as of this encounter Advance Directives * Full Code (Latest Code Status on File) Date Activated Date Inactivated Comments 12/05/2024 11:24 PM 12/07/2024 5:18 PM This order re flects the patients wishes and were consensually agreed upon. Question Answer Comments Discussion of Advance Directives occurred with: Patient Care Teams Consumer Recruiter Relationship Specialty Start Date End Date Krystian Palomo MD [address] [place] [address] [place] [address] PCP - General Family Medicine 12/22/23 documented as of this encounter
[2025-01-13] MEDS: LACTULOSE SYRUP 30 GM/45 ML UDP PO SCH (21:12)
[2025-01-13] MEDS: POTASSIUM CHLORIDE CRTAB 20 MEQ TABCR PO SCH (21:12)
[2025-01-13] MEDS: SODIUM CHLORIDE 1 GM TABLET PO SCH (21:12)
[2025-01-13] MEDS: rifAXIMin 550 MG TABLET PO SCH (21:12)
[2025-01-13] MEDS: PANTOprazole 40 MG TAB PO SCH (21:12)
[2025-01-14 07:02] LABS: Lymphocytes, Fluid 2 %; Mono,Macrophage,Mesothelial 25 %; Neutrophils, Fluid 73 %
[2025-01-14] MEDS: TORSEMIDE 20 MG TAB PO SCH (07:33)
[2025-01-14] MEDS: MAGNESIUM CHLORIDE W/CALCIUM 64MG DELAYED REL TAB PO SCH (07:33)
[2025-01-14] MEDS: TAMSULOSIN HCL 0.4 MG CAP PO SCH (07:33)
[2025-01-14] MEDS: ATORVASTATIN 20 MG TAB PO SCH (07:34)
[2025-01-14] MEDS: allopurinoL 300 MG TAB PO SCH (07:34)
[2025-01-14] MEDS: MULTIVITAMIN TAB PO SCH (07:34)
[2025-01-14 07:47] LABS: Hemoglobin 7.7 g/dl (14.0-18.0); Mean Corpuscular Hemoglobin 34.2 pg (25.0-34.0); Mean Corpuscular Volume 97.8 fL (80.0-100.0); Mean Platelet Volume 10.6 fL (9.4-12.4); Platelet Count 74 K/uL (130-400); RDW Standard Deviation 76.2 fL (36.4-46.3); Red Blood Count 2.25 M/uL (4.70-6.10); White Blood Count 6.41 K/ul (4.8-10.8)
[2025-01-14 08:01] LABS: Albumin Level 2.4 gm/dl (3.4-5.0); Bilirubin Direct 1.3 mg/dl (0-0.2); Bilirubin,Total 5.2 mg/dl (0.2-1.0); Creatinine Clr Calc Pharmacy 112.2 ml/min; Potassium 3.9 mmol/L (3.5-5.1); Total Protein 4.8 gm/dl (6.0-8.3)
[2025-01-14 08:22] LABS: Anisocytosis Present; Basophils # (auto) 0.01 K/uL (0.00-0.20); Basophils % (auto) 0.2 %; Eosinophils # (auto) 0.12 K/uL (0.00-0.50); Eosinophils % (auto) 1.9 %; Immature Granulocytes # (auto) 0.06 K/uL (0.01-0.20); Immature Granulocytes % (auto) 0.9 %; Lymphocytes # (auto) 0.34 K/uL (1.20-3.40); Lymphocytes % (auto) 5.3 %; Monocytes # (auto) 1.11 K/uL (0.11-0.59); Monocytes % (auto) 17.3 %; Neutrophils # (auto) 4.77 K/uL (1.40-6.50); Neutrophils % (auto) 74.4 %; Polychromasia 1+
[2025-01-14 08:26] LABS: INR 1.5 (0.9-1.1); Prothrombin Time 16.1 Seconds (9.0-12.0)
--- NOTE | 2025-01-14 08:31 | Pulmonology Progress Note ---
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 Start patient on prophylactic Rocephin for SBP Will unclamp the tube today can drain the rest of the pleural fluid. Goal would be to take the chest tube out tomorrow Case discussed with primary team as well as RN at bedside Please note the above document was generated using voice recognition software. It may contain grammatical, syntax or spelling errors.Any formal questions or concerns about the content, text or information contained within the body of this dictation should be directly addressed to the provider for clarification. Admission and Anticipated Discharge Date Admission Date: January 13, 2025 Subjective Patient seen and examined at bedside. No acute distress, no adverse events overnight Shortness of breath is improved He denied any chest pain, mild chest discomfort at the site of the chest tube No abdominal pain No nausea or vomiting Fair appetite Review of Systems 2 Review of Systems: All systems reviewed & are unremarkable except as noted in Subjective Physical Exam 2 Physical Exam: Constitutional: No acute distress HEENT: EOMI, PERRLA Respiratory system: Decreased air entry on the left side, improved from yesterday, no wheeze, rhonchi, positive crackles bilaterally CVS: S1-S2 positive, positive 2 out of 6 systolic murmur appreciated best at aorta Abdomen: Soft, nontender, nondistended, positive bowel sounds x4, obese Extremities: +2 pulses bilaterally radialis/ dorsalis pedis, no cyanosis, +1 pitting edema bilateral lower extremity Neuro: Awake alert oriented x3 Psych: Normal mood and affect G/U: No Mcmillan Skin: no rashes, warm and dry Lymphatic: no cervical or axillary lymphadenopathy Results & Data Results & Data Vital Signs (Past 12 Hours) Vital Signs Temp Pulse Pulse Resp BP BP Pulse Ox 01/14/25 07:48 36.7 C 95 H 18 94/59 L 96 01/14/25 02:23 36.5 C 85 16 104/69 97 01/14/25 00:00 83 01/13/25 22:28 36.5 C 89 17 99/65 L 97 O2 Del Method 01/14/25 07:48 Room Air 01/14/25 02:23 Room Air 01/14/25 00:00 01/13/25 22:28 Room Air Laboratory Results 01/14/25 07:10 01/14/25 07:10 PG Care Time/CCT Total # of Minutes Spent Total Time Spent with Patient: Total time spent is greater than 50% in coordination of care (as documented) at patient's floor/unit and/or counseling patient: Coding Level of Care Code 92453 SUB INP/OBS CARE 3/50MIN Diagnoses Pleural effusion on left J90 SOB (shortness of breath) R06.02 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
--- NOTE | 2025-01-14 08:32 | XRay Report ---
EXAM: XR chest 1V portable CLINICAL HISTORY: f/u TECHNIQUE: An X-ray image of the chest is obtained in AP projection. COMPARISON: CR chest 12/28/[address] angio chest dated 12/29/2024 FINDINGS: Pulmonary Parenchyma: Radio-opacity seen at left upper lung zone. New. Exaggerated broncho-vascular markings bilaterally. Left pleural effusion with left lower lobe atelectasis Clear right costophrenic angle Heart and Mediastinum: Enlarged heart size. Bony Thorax: Osteopenia with degenerative changes. Left sided chest tube with curved end seen projecting over left mid chest. IMPRESSION: 1. Radio-opacity seen at left upper lung zone. New. 2. Left pleural effusion which showed interval increase in size, with left lower lobe atelectasis. 3. Left sided chest tube with curved end seen projecting over left mid chest. new Electronically signed by Lake Garcia 01-14-2025 08:32 AM
[2025-01-14] MEDS: LANTUS PER UNIT CHARGE SC SCH (08:44)
--- NOTE | 2025-01-14 08:44 | Hospitalist Progress Note ---
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 Work-up in the ED revealed a large left pleural effusion with associated collapse of the left lung so patient was referred for admission. He was also noted to have acute worsening of chronic anemia. 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 CONCHIS Chandler from [facility] discussed the case with Dr. Hansen ( Transplant slide fastener chain assembler on-call at [facility]) for possible TIPS procedure and possible liver transplant evaluation; recommended that patient will likely benefit from it. Discussed with transfer center; patient accepted for transfer. Management of chest tube as per pulmonology Stop nadolol indefinitely given decompensated liver cirhossis - Continue lactulose, Xifaxan #Recurrent blood loss anemia #Chronic thrombocytopenia - due to cirrhosis - Status post transfusion of 1 packed RBC Endoscopy on 12/30 showed normal esophagus, portal hypertensive gastropathy. Continue to monitor CBC; transfuse if hemoglobin is less than 7 #Left rib fractures from fall last week - Pain control, incentive spirometry #Insulin-requiring Type 2 DM - Insulin sliding scale - Diabetic diet - BSG ACHS #BPH - Chronic, stable - continue tamsulosin - Monitor for urinary retention #Chronic hyponatremia- Sodium tablets on hold given decompensated liver cirrhosis. Will see if it can be managed with fluid restriction/diuretics. #Moderate aortic stenosis #Pulmonary hypertension - Keep outpatient f/u with cardiology #History of HCC/liver lesions -Patient received embolization of the right lower lobe lesion in 07/2023 -Repeat MRI in 01/2024 showed treatment cavity enhancement patient subsequently treated with TACE -MRI on 11/14/2024 showed abnormalities in hepatic segment 7 and currently the plan for SBRT -Patient says plan for SBRT in December Code status: full code DVT prophylaxis: SCDs in view of thrombocytopenia, recurrent blood loss anemia. Time spent evaluating patient, direct bedside care, chart review, placing orders, interpretation of diagnostic studies, discussion with consultants, patient, and family members, as well as other required patient management activities is 75 minutes Please note the above document was generated using voice recognition software. It may contain grammatical, syntax or spelling errors. Any formal questions or concerns about the content, text or information contained within the body of this dictation should be directly addressed to the provider for clarification Admission and Anticipated Discharge Date Admission Date: January 13, 2025 Subjective See patient seen and examined at bedside. Reports pain when chest tube was unclamped Review of Systems Review of Systems: All systems reviewed & are unremarkable except as noted in Subjective Physical Exam Physical Exam: General: awake, alert, NAD HEENT: moist oral mucosa Heart: RRR, +murmur Lungs: Vesicular breath sound on right lung field; decreased breath sounds on the left mid and lower lung field. Abdomen: softly distended, paracentesis site in LLQ with dressing C/D/I, +BS Extremities: trace LLE edema, distal pulses intact and equal Skin: warm, dry, mild jaundice; left knee with scabbed abrasion, ecchymosis Neurologic: Ox3, drowsy at times during examination but easily arouses to verbal stimuli Results & Data Results & Data Vital Signs (Past 12 Hours) Vital Signs Temp Pulse Pulse Resp BP BP Pulse Ox 01/14/25 07:48 36.7 C 95 H 18 94/59 L 96 01/14/25 02:23 36.5 C 85 16 104/69 97 01/14/25 00:00 83 01/13/25 22:28 36.5 C 89 17 99/65 L 97 O2 Del Method 01/14/25 07:48 Room Air 01/14/25 02:23 Room Air 01/14/25 00:00 01/13/25 22:28 Room Air (3) Diabetes mellitus, type 2 Diabetes mellitus complication status: with other specified complication Diabetes mellitus terminal operator insulin use: with senior care use Qualified Code(s): E11.69 - Type 2 diabetes mellitus with other specified complication; Z79.4 - rn long term care (current) use of insulin (4) Closed rib fracture Encounter type: subsequent encounter Fracture healing: with routine healing Laterality: left Rib fracture type: multiple ribs Qualified Code(s): S22.42XD - Multiple fractures of ribs, left side, subsequent encounter for fracture with routine healing (5) Abdominal ascites Ascites type: other type Qualified Code(s): R18.8 - Other ascites (9) BPH (benign prostatic hyperplasia) Lower urinary tract symptom presence: unspecified whether lower urinary tract symptoms present Qualified Code(s): N40.0 - Benign prostatic hyperplasia without lower urinary tract symptoms
[2025-01-14] MEDS: oxyCODONE HCL IR 5 MG TAB (IMMEDIATE RELEASE) PO PRN (09:27)
[2025-01-14] MEDS: INSULIN GLARGINE SOLOSTAR 100 UNITS/ML 3 ML PEN SC SCH (09:49)
--- NOTE | 2025-01-14 10:08 | Gastrointestinal Consultation ---
<Statement entered by Sammy Robertson MD - 01/14/25 17:39> I have reviewed the history, physical exam, lab and imaging findings as dictated by the mid-level provider, made any necessary modifications, and agree with the stated assessment and recommendations. A total of 45 minutes was spent in the review, direct observation, decision making and discussion of this case with the patient/family and other providers. Sammy Robertson MD Date of Consultation January 14, 2025 Assessment & Plan (1) Ascites: (2) Hepatocellular carcinoma: (3) Pleural effusion: Plan Requiring frequent paracentesis and now with hepatic hydrothorax and chest tube placed. He is currently on SBP prophylaxis. Culture from paracentesis on 01/13 is pending. At the present time, given the significance of his volume management issues, I do feel that he should be evaluated for a TIPS procedure at a tertiary facility. Per nursing, patient has been accepted to [facility] for further evaluation. Continue adequate therapy/prevention for hepatic encephalopathy. History of Present Illness Reason for Consultation: Cirrhosis, ascites Attending Physician: John Thompson MD History of Present Illness Patient is a 59 yo male followed by [facility] for liver cirrhosis 12/01 [facility], complicated by recurrent ascites requiring frequent large volume paracentesis and hepatic encephalopathy. He also has a history of HCC s/p with plans for SBRT. His medical history is otherwise complicated by DM2, moderate aortic stenosis, and HTN. He had a paracentesis on 01/13 and 7L of fluid was removed. After the procedure, he developed significant abdominal distention and discomfort. No fever or chills. He is in the process of being worked up for a liver transplant. Last EGD on 12/30/24 with normal esophagus & portal hypertensive gastropathy & duodenopathy. When he returned to the hospital, he was noted to have clinical findings of ascites and imaging to suggest hepatic hydrothorax with lung collapse. A chest tube was placed. Patient was very uncomfortable at the time of my evaluation initially. He notes the chest tube is causing him pain. Subsequently in afternoon with tube out, feeling much improved. MELD 24. White blood cells were increased on ascitic fluid studies from 01/13/25, however culture is still pending. Normal WBC count at present. He is currently on Ceftriaxone. Allergies Allergy/AdvReac Type Severity Reaction Status Date / Time aspirin AdvReac Intermediate NOSE Verified 01/08/25 19:48 BLEEDS--IF TAKES REGULARLY salicylates AdvReac Intermediate NOSE BLEEDS Verified 01/08/25 19:48 Home Medications Medication Instructions Recorded Confirmed Type allopurinol 300 mg tablet 300 mg PO DAILY 12/29/24 01/13/25 History ascorbic acid (vitamin C) 1,000 mg 1 g PO DAILY 12/29/24 01/13/25 History tablet atorvastatin 20 mg tablet 20 mg PO DAILY 12/29/24 01/13/25 History insulin degludec 100 unit/mL (3 10 unit subcut DAILY 12/29/24 01/13/25 History mL) subcutaneous pen lactulose 10 gram/15 mL oral 45 ml PO TID 12/29/24 01/13/25 History solution magnesium chloride 64 mg 64 mg PO DAILY 12/29/24 01/13/25 History (magnesium chloride) tablet,delayed release (Mag-Delay) midodrine 2.5 mg tablet 5 mg PO TID 12/29/24 01/13/25 History multivitamin 1 tab PO DAILY 12/29/24 01/13/25 History potassium chloride 10 mEq 20 meq PO BID 12/29/24 01/13/25 History tablet,extended release(part/cryst) rifaximin 550 mg tablet (Xifaxan) 550 mg PO BID 12/29/24 01/13/25 History sodium chloride 1,000 mg soluble 1,000 mg PO BID 12/29/24 01/13/25 History tablet tamsulosin 0.4 mg capsule 0.4 mg PO DAILY 12/29/24 01/13/25 History torsemide 20 mg tablet 20 mg PO DAILY 12/29/24 01/13/25 History pantoprazole 40 mg tablet,delayed 40 mg PO BID #60 tabs 12/31/24 01/13/25 Rx release nadolol 40 mg tablet 10 mg (1/4 x 40 mg) PO QAM #30 tabs 01/01/25 01/13/25 Rx Lactobacillus acidophilus 10 10,000 mmu cells PO BID 01/08/25 01/13/25 History billion cell capsule (Probiotic) docusate sodium 100 mg capsule 100 mg PO BID 01/08/25 01/13/25 History mupirocin 2 % topical ointment 1 applic topical TID PRN Skin 01/08/25 01/13/25 History Irritation oxycodone 5 mg tablet 5 mg PO Q6H PRN pain #10 tabs 01/08/25 01/13/25 Rx Patient History Medical History BPH (benign prostatic hyperplasia) Ureterolithiasis Hepatocellular carcinoma s/p IR embolization Pulmonary hypertension Diabetes mellitus NAFLD (nonalcoholic fatty liver disease) Chronic hyponatremia Dizziness r/t the cirrhosis - using a cane at this time. "if i get up to fast". S/P abdominal paracentesis Fracture of rib of right side 2013 Anaplasmosis 2020 Acute hepatic encephalopathy Cardiac murmur HX Hypertension Right rib fracture hx ~. Surgical History History of esophagogastroduodenoscopy (EGD) History of colonoscopy Family History Mother History of colonoscopy Cancer Colon Brother Family history of diabetes mellitus Brother Family history of diabetes mellitus Grandmother (Paternal) Family history of diabetes mellitus Other No family history of adverse response to anesthesia Social History Smoking Status: Former smoker Tobacco Type: Smokeless Tobacco (Dip or Chew) packs per day: 0.25; Second Hand Exposure: No; Do You Dip or Chew Tobacco: No; Tobacco Cessation Education Requested by Patient: No Hx Alcohol Use: No Hx Substance Use: No Preferred Language: Dutch Communication Ability: Effective Hearing Ability: Normal Medical Billing Supervisor Required: No Beliefs That Will Affect Care: None marital status: Single Current Living Situation: Alone Current Living Situation Comment: With brother and mother Other Information That Helps Us Care for You: No Feels Safe at Home: Yes Safety Concerns: Feels Safe At This Time Assistive Devices: Walker Review of Systems Constitutional: no fever and no chills Respiratory: + dyspnea on exertion Cardiovascular: + chest pain Gastrointestinal: + problem reported (ascites) Physical Exam Constitutional: well developed Respiratory: chest tube in place Gastrointestinal (Abdomen): ascites, non-tender Results & Data Vital Signs (Past 12 Hours) Vital Signs Temp Pulse Pulse Resp BP BP Pulse Ox 01/14/25 07:48 36.7 C 95 H 18 94/59 L 96 01/14/25 02:23 36.5 C 85 16 104/69 97 01/14/25 00:00 83 01/13/25 22:28 36.5 C 89 17 99/65 L 97 O2 Del Method 01/14/25 07:48 Room Air 01/14/25 02:23 Room Air 01/14/25 00:00 01/13/25 22:28 Room Air PG Care Time/CCT Total # of Minutes Spent Total Time Spent with Patient: Total time spent is greater than 50% in coordination of care (as documented) at patient's floor/unit and/or counseling patient: Coding Level of Care Code 70667 IN/OBS CONSULT LVL 4,60M Diagnoses Ascites R18.8 Hepatocellular carcinoma C22.0 Pleural effusion J90
--- NOTE | 2025-01-14 10:17 | Discharge Summary ---
Date of Service January 14, 2025 Admission HPI Per Admitting Provider This is a 59 y/o male with liver cirrhosis secondary to MASH, recurrent ascites, hx hepatic encephalopathy, hx HCC s/p TACE, insulin-requiring DM2, moderate aortic stenosis, HTN, and other history as outlined below who presented to the ED today from where he was undergoing routine paracentesis and was noted be lethargic. Additionally, outpatient labs showed worsening of his chronic anemia. Pt was most recently admitted to [facility] 12/29-01/01/25 with shortness of breath and acute blood loss anemia. Transfused with improvement of symptoms. Since being home, pt reports at least two falls, being seen in the ED on 01/08 for one of the falls. Last night, pt states he was going to sit down on the couch with the assistance of a walker for balance then the walker caught and tipped over, resulting in his falling to the floor. Since that fall, pt reports pain in left chest with deep breathing but denies shortness of breath. Some dizziness at times but denies syncopal event. Pt reports removal of 7L of fluid with routine paracentesis this morning. He reports improvement in abdominal distention and discomfort since procedure. He denies fevers, chills, N/V, cough. He is continuing to pursue work-up for transplant. EGD 12/30/24 (Dr. Ramos) - normal esophagus; portal hypertensive gastropathy, congested duodenal mucosa with vascular abnormalities c/w portal duodenopathy. Principal Diagnosis Decompensated liver cirrhosis Left-sided pleural effusion status post chest tube placement Discharge Exam General: awake, alert, NAD HEENT: moist oral mucosa Heart: RRR, +murmur Lungs: Vesicular breath sound on right lung field; decreased breath sounds on the left mid and lower lung field. Abdomen: softly distended, paracentesis site in LLQ with dressing C/D/I, +BS Extremities: trace LLE edema, distal pulses intact and equal Skin: warm, dry, mild jaundice; left knee with scabbed abrasion, ecchymosis Neurologic: Ox3, drowsy at times during examination but easily arouses to verbal stimuli Discharge Data Allergies Allergy/AdvReac Type Severity Reaction Status Date / Time aspirin AdvReac Intermediate NOSE Verified 01/08/25 19:48 BLEEDS--IF TAKES REGULARLY salicylates AdvReac Intermediate NOSE BLEEDS Verified 01/08/25 19:48 Consultations 01/13/25 12:04 ED Decision to Admit Stat 01/13/25 12:05 Consult Pulmonology Routine 01/13/25 16:14 Consult Gastroenterology Routine 01/14/25 09:48 Burn CD for patient Stat Ordered Studies 01/13/25 10:29 CT chest diagnostic w con Stat 01/13/25 16:58 US point of care ultrasound Urgent Hospital Course (1) Pleural effusion on left: (2) 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: (3) Diabetes mellitus, type 2: (4) Closed rib fracture: (5) Abdominal ascites: (6) Orthostatic hypotension: (7) Hyponatremia: (8) Hepatic encephalopathy: (9) BPH (benign prostatic hyperplasia): Plan This is a 59 y/o male with 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 Work-up in the ED revealed a large left pleural effusion with associated collapse of the left lung so patient was referred for admission. He was also noted to have acute worsening of chronic anemia. 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 [facility]IS Chandler [facility] discussed the case with Dr. Hansen ( Transplant staff climate scientist on-call at [facility]) for possible TIPS procedure and possible liver transplant evaluation; recommended that patient will likely benefit from it. Discussed with transfer center at [facility]; patient accepted. Patient to be transferred for possible TIPS and liver transplant evaluation. Chest tube to be clamped on the way; discussed with pulmonology Stop nadolol and definitively. #Recurrent blood loss anemia #Chronic thrombocytopenia - due to cirrhosis - Status post transfusion of 1 packed RBC - Hb stable in subsequent labwork. Please note the above document was generated using voice recognition software. It may contain grammatical, syntax or spelling errors. Any formal questions or concerns about the content, text or information contained within the body of this dictation should be directly addressed to the provider for clarification Total Time Total Time Spent Total Time Spent (In Minutes): 45 Total Time Includes: Examination of the Patient, Discharge Planning, Medication Reconciliation, Communication With Other Providers and Other Discharge Plan Discharge Items Patient Disposition: Transfer [facility] Reason For Visit: LARGE LEFT PLEURAL EFFUSION Discharge Diagnosis: Refractory ascites Large left-sided pleural effusion status post chest tube placement Activity: Resume your previous activity Non-emergency contact: Primary Care Provider Call non-emergency contact if: you have any medication questions and your symptoms worsen Follow-up/Referrals: Krystian Palomo MD [Primary Care Provider] - Diet: Regular Addtl Attending Provider Instructions: Please follow-up with your primary care doctor after discharge from the hospital. Pending Studies at Discharge: No Stand-Alone Forms: My [facility] Skilled Items Patient informed of condition?: No DNR: No Discharge Level of Care: Other Communicable Disease: No Discharge Prognosis: Stable Lines: Peripheral IV Urinary Catheter: No Medications and DC Order Prescriptions: Continued torsemide 20 mg tablet 20 mg PO DAILY Hold Instructions: Resume on 01/02/25. tamsulosin 0.4 mg capsule 0.4 mg PO DAILY allopurinol 300 mg tablet 300 mg PO DAILY midodrine 2.5 mg tablet 5 mg PO TID potassium chloride 10 mEq tablet,ER particles/crystals 20 meq PO BID Rx Instructions: PER PT "TWICE DAILY", PER EXT MED HX ORDERED "TID". lactulose 10 gram/15 mL solution 45 ml PO TID sodium chloride 1,000 mg tablet,soluble 1,000 mg PO BID magnesium chloride [Mag-Delay] 64 mg tablet,delayed release (DR/EC) 64 mg PO DAILY Xifaxan 550 mg tablet 550 mg PO BID insulin degludec 100 unit/mL (3 mL) insulin pen 10 unit SUBCUT DAILY atorvastatin 20 mg Tablet 20 mg PO DAILY multivitamin Tablet 1 tab PO DAILY ascorbic acid (vitamin C) 1,000 mg Tablet 1 g PO DAILY pantoprazole 40 mg Tablet,Delayed Release (Dr/Ec) 40 mg PO BID Qty: 60 0RF docusate sodium 100 mg Capsule 100 mg PO BID mupirocin 2 % Ointment 1 applic TOPICAL TID PRN (Reason: Skin Irritation) Probiotic 10 billion cell Capsule 10,000 mmu cells PO BID oxycodone 5 mg tablet 5 mg PO Q6H PRN (Reason: pain) Qty: 10 0RF Discontinued nadolol 40 mg Tablet 10 mg PO QAM Qty: 30 0RF Rx Instructions: TAKE 1/4 TABLET QAM Discharge Orders: Discharge Order (Routine); Ordered 01/14/25 Ordered By: John Thompson Admission Data Admit Date/Time: 01/13/25 12:41 Attending Provider: John Thompson Admit Provider: Edwin Ferreira Primary Care Provider: Krystian Palomo Other Providers: Morgan Colbert; Sammy Robertson
[2025-01-14] MEDS: cefTRIAXone SODIUM 2,000 MG/50 ML BAG IV SCH (10:21)
[2025-01-14] MEDS ORDERED: Nursing to Pharmacy Communication SCH (13:15)
[2025-01-14] MEDS: oxyCODONE HCL IR 5 MG TAB (IMMEDIATE RELEASE) PO STA (14:03)
--- NOTE | 2025-01-14 14:35 | XRay Report ---
XR chest 1V portable CLINICAL HISTORY: f/u COMPARISON STUDY: Study earlier today FINDINGS: Stable left chest tube. Stable opacity at the left lower lung with obscuration of the left hemidiaphragm. No pneumothorax. Stable cardiomegaly without pulmonary vascular congestion. IMPRESSION: Stable exam. ACT 112: Negative or not required by law. Electronically signed by: Demario Cuadra M.D. 01/14/2025 2:34 PM
[2025-01-14] MEDS: BACLOFEN 10 MG TAB PO PRN (14:45)
[2025-01-14] MEDS: MAGNESIUM SULFATE / D5W 1 GM/100 ML BAG IV SCH (14:45)
[2025-01-14 15:45] VITALS: PULSE 96; RESP 20; TEMP 97.7; O2SAT 98
[2025-01-14 18:37] VITALS: BP 104/69
== END 2025-01-14 18:38 | disposition short-term general hospital (02) | DRG 982 ==
LOC: ED 09:02 → EDINP 12:41 → SUATTDRO 12:41 → 2S 13:06
DX: K76.82 Hepatic encephalopathy; K76.6 Portal hypertension; I95.9 Hypotension, unspecified; E11.9 Type 2 diabetes mellitus without complications; I35.0 Nonrheumatic aortic (valve) stenosis; W18.30XA Fall on same level, unspecified, initial encounter; K31.89 Other diseases of stomach and duodenum; K74.60 Unspecified cirrhosis of liver; Z88.6 Allergy status to analgesic agent; E87.1 Hypo-osmolality and hyponatremia; J91.8 Pleural effusion in other conditions classified elsewhere; C22.9 Malignant neoplasm of liver, not specified as primary or secondary; D50.0 Iron deficiency anemia secondary to blood loss (chronic); K75.81 Nonalcoholic steatohepatitis (NASH); I10 Essential (primary) hypertension; Y92.89 Other specified places as the place of occurrence of the external cause; Z79.4 Long term (current) use of insulin; R18.8 Other ascites; Z83.3 Family history of diabetes mellitus; Z87.891 Personal history of nicotine dependence; J98.11 Atelectasis; S22.31XA Fracture of one rib, right side, initial encounter for closed fracture; I27.20 Pulmonary hypertension, unspecified; N40.0 Benign prostatic hyperplasia without lower urinary tract symptoms

== ENCOUNTER 2025-02-07 18:07 | Inpatient (IN) ==
[2025-02-07 18:50] LABS: Basophils # (auto) 0.06 K/uL (0.00-0.20); Basophils % (auto) 1.2 %; Eosinophils # (auto) 0.11 K/uL (0.00-0.50); Eosinophils % (auto) 2.1 %; Hematocrit (blood only) 26.9 % (42.0-52.0); Hemoglobin 8.9 g/dl (14.0-18.0); Immature Granulocytes # (auto) 0.01 K/uL (0.01-0.20); Immature Granulocytes % (auto) 0.2 %; Lymphocytes # (auto) 0.34 K/uL (1.20-3.40); Lymphocytes % (auto) 6.6 %; Mean Corpuscular Hgb Conc 33.1 g/dL (32.0-36.0); Mean Corpuscular Volume 93.7 fL (80.0-100.0); Mean Platelet Volume 10.5 fL (9.4-12.4); Monocytes % (auto) 23.2 %; Neutrophils # (auto) 3.45 K/uL (1.40-6.50); Neutrophils % (auto) 66.7 %; Platelet Count 53 K/uL (130-400); RDW Standard Deviation 74.4 fL (36.4-46.3); Red Blood Count 2.87 M/uL (4.70-6.10); White Blood Count 5.17 K/ul (4.8-10.8)
[2025-02-07 19:00] LABS: Albumin Globulin Ratio 0.8 (0.9-2); Albumin Level 2.3 gm/dl (3.4-5.0); BUN Creatinine Ratio 10.5 (10-20); Bilirubin,Total 3.6 mg/dl (0.2-1.0); Creatinine Clr Calc Pharmacy 62.6 ml/min; Globulin 2.9 gm/dl (2.5-4.0); Magnesium 2.1 mg/dl (1.7-2.4); Phosphorus 2.6 mg/dl (2.5-4.9); Potassium 4.7 mmol/L (3.5-5.1); Total Protein 5.2 gm/dl (6.0-8.3)
[2025-02-07 19:10] LABS: Anisocytosis Present; Polychromasia 1+
[2025-02-07 19:14] LABS: Thyroid Stimulating Hormone 2.056 uIu/ml (0.300-4.500)
--- NOTE | 2025-02-07 19:15 | Emergency Department Note ---
Impression & Plan Recurrent falls while walking, 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, Generalized weakness, BERT (acute kidney injury), Lumbar compression fracture ED Provider Note NAME: SATISH HUERTA AGE: 59 SEX: M : 1965 ARRIVES VIA: Ambulance INFORMANT: Patient ED PROVIDER(S): Ken Lyons MD CHIEF COMPLAINT: Falls, weakness PLAN: Disposition: Admit MEDICAL DECISION MAKING: The patient is a pleasant 59-year-old gentleman with a past medical history of liver cirrhosis secondary to GONZALES, recurrent ascites, hx hepatic encephalopathy, hx HCC s/p TACE, insulin-requiring DM2, moderate aortic stenosis, HTN who presents to the emergency department via EMS from home for generalized weakness where he reports having a fall around 2 AM last night and again at 10 AM this morning when attempting navigate from his walker to his wheelchair and fell to his knees due to generalized weakness. Patient was discharged from [facility] a couple of days ago per his report after being admitted there where he received a TIPS procedure. Since then he reports he has been doing well without return of abdominal distention. He reports he did have a physical therapy assessment and did okay with a walker but feels that navigating in his home is somewhat different and more challenging and his mother and brother who live with him cannot system at all times. He reports he could not get up without help but his family numbers did contact his brother who lives next-door who did help him get up. He denies head strike or LOC. He reports discomfort of both knees, right greater than left but FROM intact. Denies hip pain. Reports ongoing lower back pain for the past month after having a fall where he did have CT imaging at this facility which showed no acute fracture. He denies any acute worsening of this pain. On my evaluation the patient is no distress, afebrile blood pressure in the 90s/50s with maps in the 70s, heart rate in the 90s and vital signs otherwise stable. He appears clinically dry. He has contusion of the right anterior knee with full range of motion intact. Reports discomfort of both knees, right greater than left but FROM intact. Pelvis stable. No midline tenderness to palpation or step-offs of the CTL spine. EKG without overt acute ischemia. CXR with likely atelectasis and otherwise negative for acute cardiopulmonary process per my personal preliminary review/interpretation. WBC within normal limits. H/H 8.9/26.9, similar to prior. Platelets 53K, similar to prior. INR is 1.8, similar to prior range of values in setting of history of cirrhosis. Grahams 1.53, slightly increased from baseline consistent with patient's clinical dry appearance. Total bilirubin 3.6, similar to but decreased from prior. LFTs otherwise similar to prior range of values. TSH within limits. UA without evidence of infection. X-rays of bilateral knees were negative for acute fracture or dislocation. Old/subacute fracture of the left fibular neck is described with developing callus. CT of the lumbar spine and pelvis performed performed with report pending. Given the patient's generalized weakness with ambulatory dysfunction resulting in recurrent falls patient feels he is not able to go home at this time and so patient was referred to the hospitalist service for further evaluation. Case was discussed with Dr. Hernandez, [facility], who will evaluate the patient for admission. CT reports subsequently describe acute compression fracture of L1-L2 vertebral bodies without posterior retropulsion. compression fractures are described. No evidence of retropulsion. Right gluteal muscle contusion also described. Further management per admitting team. Triage Nursing notes reviewed and agree them. Prior/external medical records reviewed Vital Signs: reviewed Differential diagnosis: Infection, dehydration, metabolic abnormality, hypo/hyperglycemia, electrolyte disturbance, anemia, hypoxia, cardiac sources, intracerebral event, toxicologic, neurologic, as well as other pathologies. ER treatment provided: See below. Diagnostics interpreted by me: ECG: Normal sinus rhythm, 95 bpm, no ectopy, no overt ST elevation or depression, QTc 469, QRS 88. Cardiac Monitoring: An order for continuous cardiac monitoring was placed and demonstrated Normal sinus rhythm, 95 bpm, no ectopy. Laboratory studies: See below Imaging studies: See below Consultation(s): Case was discussed with Dr. Hernandez, [facility], who will evaluate the patient for admission. HPI: The patient is a pleasant 59-year-old gentleman with a past medical history of liver cirrhosis secondary to GONZALES, recurrent ascites, hx hepatic encephalopathy, hx HCC s/p TACE, insulin-requiring DM2, moderate aortic stenosis, HTN who presents to the emergency department via EMS from home for generalized weakness where he reports having a fall around 2 AM last night and again at 10 AM this morning when attempting navigate from his walker to his wheelchair and fell to his knees due to generalized weakness. Patient was discharged from [facility] a couple of days ago per his report after being admitted there where he received a TIPS procedure. Since then he reports he has been doing well without return of abdominal distention. He reports he did have a physical therapy assessment and did okay with a walker but feels that navigating in his home is somewhat different and more challenging and his mother and brother who live with him cannot system at all times. He reports he could not get up without help but his family numbers did contact his brother who lives next-door who did help him get up. He denies head strike or LOC. He reports discomfort of both knees, right greater than left but FROM intact. Denies hip pain. Reports ongoing lower back pain for the past month after having a fall where he did have CT imaging at this facility which showed no acute fracture. He denies any acute worsening of this pain. ROS: See above HPI for pertinent positives & negatives. A total of 10 systems reviewed and were otherwise negative. VITALS:See Below PHYSICAL EXAMINATION: GENERAL: Awake, alert, in no distress HENT: Normocephalic, atraumatic. Oropharynx unremarkable. EYES: Normal conjunctiva. Sclera non-icteric. EOMI. No nystamgus. PEARRL. NECK: Supple. No nuchal rigidity. FROM. No JVD. No midline tenderness to palpation or step-offs. RESPIRATORY: Clear to auscultation. CARDIAC: Regular rate, normal rhythm. 3/6 systolic murmur. Extremities warm and well perfused. Pulses equal. ABDOMEN: Soft, non-distended. No tenderness to palpation. Chronic large ventral hernia with protective dressing in place. MUSCULOSKELETAL: Chest examination reveals no tenderness. The back is symmetrical on inspection without obvious abnormality. No midline tenderness to palpation or step-offs. There is no CVA tenderness to palpation. Right anterior knee contusion. No gross instability. FROM. Pelvis is stable, Hips with FROM bilaterally. LOWER EXTREMITIES: Calves are equal size bilaterally and non-tender. No edema. No discoloration. NEURO: Normal sensorium. No sensory or motor deficits noted. SKIN: No rash or jaundice noted. Ken Lyons MD Past Med/Surg History Problem List (Updated 02/08/25 @ 01:51 by Ken Lyons MD) Lumbar compression fracture (Acute) BERT (acute kidney injury) (Acute) Generalized weakness (Acute) Recurrent falls while walking (Acute) Pleural effusion on left Anemia SOB (shortness of breath) Abdominal ascites (Acute) Hypoalbuminemia (Acute) Hypokalemia (Acute) Hernia, umbilical (Acute) Thyroid lesion Mass of soft tissue of neck Acute dyspnea (Acute) Pleural effusion (Acute) Pleural effusion Hypokalemia (Acute) Hypomagnesemia (Acute) Constipation (Acute) Abdominal pain (Acute) Hyponatremia Orthostatic hypotension Dizziness (Acute) Medical non-compliance (Acute) Hyperammonemia (Acute) Ascites (Acute) Urinary retention Cirrhosis (Acute) Morbid obesity Hepatic encephalopathy 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 (Acute) Thrombocytopenia Hyperlipidemia Gout Diabetes mellitus, type 2 NIDDM Medical History Pleural effusion BPH (benign prostatic hyperplasia) Ureterolithiasis Hepatocellular carcinoma s/p IR embolization Pulmonary hypertension Diabetes mellitus NAFLD (nonalcoholic fatty liver disease) Chronic hyponatremia Dizziness r/t the cirrhosis - using a cane at this time. "if i get up to fast". S/P abdominal paracentesis Fracture of rib of right side 2013 Anaplasmosis 2019 Acute hepatic encephalopathy Cardiac murmur HX Hypertension Right rib fracture hx ~2013/2014. Surgical History History of esophagogastroduodenoscopy (EGD) History of colonoscopy Family History Mother History of colonoscopy Cancer Colon Brother Family history of diabetes mellitus Brother Family history of diabetes mellitus Grandmother (Paternal) Family history of diabetes mellitus Other No family history of adverse response to anesthesia Social History Smoking Status: Former smoker Tobacco Type: Smokeless Tobacco (Dip or Chew) packs per day: 0.25; Second Hand Exposure: No; Do You Dip or Chew Tobacco: No; Hx Alcohol Use: No Hx Substance Use: No Preferred Language: German Communication Ability: Effective Hearing Ability: Normal Manager Consumer Insights Required: No Beliefs That Will Affect Care: None marital status: Single Current Living Situation: Alone Current Living Situation Comment: With brother and mother Feels Safe at Home: Yes Assistive Devices: Walker Allergies Allergies Allergy/AdvReac Type Severity Reaction Status Date / Time aspirin AdvReac Intermediate NOSE Verified 02/07/25 21:33 BLEEDS--IF TAKES REGULARLY salicylates AdvReac Intermediate NOSE BLEEDS Verified 02/07/25 21:33 Home Meds Home Medications Medication Instructions Recorded Confirmed allopurinol 300 mg tablet 300 mg PO DAILY 12/29/24 02/07/25 ascorbic acid (vitamin C) 1,000 mg 1 g PO DAILY 12/29/24 02/07/25 tablet atorvastatin 20 mg tablet 20 mg PO DAILY 12/29/24 02/07/25 insulin degludec 100 unit/mL (3 10 unit subcut DAILY 12/29/24 02/07/25 mL) subcutaneous pen lactulose 10 gram/15 mL oral 45 ml PO TID 12/29/24 02/07/25 solution magnesium chloride 64 mg 64 mg PO DAILY 12/29/24 02/07/25 (magnesium chloride) tablet,delayed release (Mag-Delay) multivitamin 1 tab PO DAILY 12/29/24 02/07/25 rifaximin 550 mg tablet (Xifaxan) 550 mg PO BID 12/29/24 02/07/25 sodium chloride 1,000 mg soluble 1,000 mg PO DAILY 12/29/24 02/07/25 tablet tamsulosin 0.4 mg capsule 0.4 mg PO DAILY 12/29/24 02/07/25 Lactobacillus acidophilus 10 10,000 mmu cells PO BID 01/08/25 02/07/25 billion cell capsule (Probiotic) docusate sodium 100 mg capsule 100 mg PO BID 01/08/25 02/07/25 mupirocin 2 % topical ointment 1 applic topical TID PRN Skin 01/08/25 02/07/25 Irritation ciprofloxacin HCl 500 mg tablet 500 mg PO DAILY 02/07/25 02/07/25 midodrine 5 mg tablet 15 mg PO TID 02/07/25 02/07/25 potassium chloride 20 mEq 40 meq PO BID 02/07/25 02/07/25 tablet,extended release(part/cryst) spironolactone 50 mg tablet 50 mg PO DAILY 02/07/25 02/07/25 torsemide 10 mg tablet 10 mg PO DAILY 02/07/25 02/07/25 vitamin E (dl, acetate) 180 mg 180 mg PO DAILY 02/07/25 02/07/25 (400 unit) capsule Previous Rx's Medication Instructions Recorded pantoprazole 40 mg tablet,delayed 40 mg PO BID #60 tabs 12/31/24 release Results & Data (ED) Vital Signs Vital Signs - 24 hr 02/07/25 18:17 02/07/25 18:19 02/07/25 18:30 Temperature 36.9 C Temperature Source Oral Pulse Rate 98 H 93 H 95 H Pulse Rate [Right Finger] Pulse Rate from SpO2 Sensor 96 H Pulse Rhythm [Right Finger] Pulse Strength [Right Finger] Respiratory Rate 19 19 Respiratory Effort / Characteristics Non-Labored Spontaneous Respiratory Depth Normal Respiratory Pattern Regular Blood Pressure 97/62 L 96/53 L Blood Pressure [Right Arm] Blood Pressure Mean 73 67 Blood Pressure Mean [Right Arm] Blood Pressure Position [Right Arm] Pulse Oximetry 95 93 Oxygen Delivery Method Room Air Sepsis Recent Fever Within 48 Hours No Sepsis New/Unexplained Change in Mental Status No Sepsis Action Taken by Nursing No Action Required 02/07/25 18:38 02/07/25 19:00 02/07/25 19:00 Temperature Temperature Source Pulse Rate 95 H 91 H Pulse Rate [Right Finger] Pulse Rate from SpO2 Sensor 92 H Pulse Rhythm [Right Finger] Pulse Strength [Right Finger] Respiratory Rate 24 14 Respiratory Effort / Characteristics Respiratory Depth Respiratory Pattern Blood Pressure 95/65 L Blood Pressure [Right Arm] Blood Pressure Mean 83 Blood Pressure Mean [Right Arm] Blood Pressure Position [Right Arm] Pulse Oximetry 94 96 Oxygen Delivery Method Room Air Sepsis Recent Fever Within 48 Hours Sepsis New/Unexplained Change in Mental Status Sepsis Action Taken by Nursing 02/07/25 19:30 02/07/25 19:36 02/07/25 20:15 Temperature Temperature Source Pulse Rate 94 H 97 H Pulse Rate [Right Finger] Pulse Rate from SpO2 Sensor 94 H 96 H Pulse Rhythm [Right Finger] Pulse Strength [Right Finger] Respiratory Rate 13 18 Respiratory Effort / Characteristics Respiratory Depth Respiratory Pattern Blood Pressure 96/56 L Blood Pressure [Right Arm] Blood Pressure Mean 71 Blood Pressure Mean [Right Arm] Blood Pressure Position [Right Arm] Pulse Oximetry 97 95 Oxygen Delivery Method Sepsis Recent Fever Within 48 Hours Sepsis New/Unexplained Change in Mental Status Sepsis Action Taken by Nursing 02/07/25 20:21 02/07/25 20:30 02/07/25 20:51 Temperature Temperature Source Pulse Rate 94 H 104 H Pulse Rate [Right Finger] Pulse Rate from SpO2 Sensor 93 H 105 H Pulse Rhythm [Right Finger] Pulse Strength [Right Finger] Respiratory Rate 19 16 Respiratory Effort / Characteristics Respiratory Depth Respiratory Pattern Blood Pressure 106/61 Blood Pressure [Right Arm] Blood Pressure Mean 83 Blood Pressure Mean [Right Arm] Blood Pressure Position [Right Arm] Pulse Oximetry 94 98 Oxygen Delivery Method Sepsis Recent Fever Within 48 Hours Sepsis New/Unexplained Change in Mental Status Sepsis Action Taken by Nursing 02/07/25 21:06 02/07/25 21:30 02/07/25 21:45 Temperature Temperature Source Pulse Rate 107 H 100 H Pulse Rate [Right Finger] Pulse Rate from SpO2 Sensor 107 H 99 H Pulse Rhythm [Right Finger] Pulse Strength [Right Finger] Respiratory Rate 17 17 Respiratory Effort / Characteristics Respiratory Depth Respiratory Pattern Blood Pressure 95/61 L Blood Pressure [Right Arm] Blood Pressure Mean 72 Blood Pressure Mean [Right Arm] Blood Pressure Position [Right Arm] Pulse Oximetry 96 96 Oxygen Delivery Method Sepsis Recent Fever Within 48 Hours Sepsis New/Unexplained Change in Mental Status Sepsis Action Taken by Nursing 02/07/25 22:10 02/07/25 22:24 02/07/25 22:30 Temperature Temperature Source Pulse Rate 99 H 99 H 98 H Pulse Rate [Right Finger] Pulse Rate from SpO2 Sensor Pulse Rhythm [Right Finger] Pulse Strength [Right Finger] Respiratory Rate 14 19 Respiratory Effort / Characteristics Respiratory Depth Respiratory Pattern Blood Pressure 100/73 Blood Pressure [Right Arm] Blood Pressure Mean 82 Blood Pressure Mean [Right Arm] Blood Pressure Position [Right Arm] Pulse Oximetry Oxygen Delivery Method Sepsis Recent Fever Within 48 Hours Sepsis New/Unexplained Change in Mental Status Sepsis Action Taken by Nursing 02/07/25 23:00 02/08/25 01:00 Temperature Temperature Source Pulse Rate Pulse Rate [Right Finger] 100 H 98 H Pulse Rate from SpO2 Sensor Pulse Rhythm [Right Finger] Regular Regular Pulse Strength [Right Finger] Normal Normal Respiratory Rate 18 16 Respiratory Effort / Characteristics Non-Labored Spontaneous Non-Labored Spontaneous Respiratory Depth Normal Normal Respiratory Pattern Regular Regular Blood Pressure Blood Pressure [Right Arm] 104/62 98/65 L Blood Pressure Mean Blood Pressure Mean [Right Arm] 76 76 Blood Pressure Position [Right Arm] Lying Lying Pulse Oximetry 97 98 Oxygen Delivery Method Room Air Room Air Sepsis Recent Fever Within 48 Hours Sepsis New/Unexplained Change in Mental Status Sepsis Action Taken by Nursing Laboratory Data Attestation: I reviewed the patient's lab results. 02/07/25 18:16 02/07/25 18:16 Lab Results 02/07/25 02/07/25 Range/Units 18:16 19:45 WBC 5.17 (4.8-10.8) K/ul RBC 2.87 L (4.70-6.10) M/uL Hgb 8.9 L (14.0-18.0) g/dl Hct 26.9 L (42.0-52.0) % MCV 93.7 (80.0-100.0) fL MCH 31.0 (25.0-34.0) pg MCHC 33.1 (32.0-36.0) g/dL RDW Std Deviation 74.4 H (36.4-46.3) fL RDW Coeff of [place] 22.0 H (11.5-14.5) % Plt Count 53 L (130-400) K/uL MPV 10.5 (9.4-12.4) fL Immature Gran % (Auto) 0.2 % Neut % (Auto) 66.7 % Lymph % (Auto) 6.6 % [place] % (Auto) 23.2 % Eos % (Auto) 2.1 % Baso % (Auto) 1.2 % Neut # (Auto) 3.45 (1.40-6.50) K/uL Lymph # (Auto) 0.34 L (1.20-3.40) K/uL [place] # (Auto) 1.20 H (0.11-0.59) K/uL Eos # (Auto) 0.11 (0.00-0.50) K/uL Baso # (Auto) 0.06 (0.00-0.20) K/uL Immature Gran # (Auto) 0.01 (0.01-0.20) K/uL Polychromasia 1+ Anisocytosis Present PT 18.1 H (9.0-12.0) Seconds INR 1.8 H (0.9-1.1) Sodium 130 L (136-145) mmol/L Potassium 4.7 (3.5-5.1) mmol/L Chloride 98 (98-107) mmol/L Carbon Dioxide 29 (21-32) mmol/L Anion Gap 3 (3-11) BUN 16 (6-23) mg/dl Creatinine 1.53 H (0.6-1.4) mg/dl Est Cr Clr Drug Dosing 62.6 ml/min eGFR 51.72 BUN/Creatinine Ratio 10.5 (10-20) Glucose 157 H (70-99(Fasting)) mg/dl Calcium 8.0 L (8.6-10.3) mg/dl Phosphorus 2.6 (2.5-4.9) mg/dl Magnesium 2.1 (1.7-2.4) mg/dl Total Bilirubin 3.6 H (0.2-1.0) mg/dl AST 94 H (13-39) U/L ALT 31 (7-52) U/L Alkaline Phosphatase 258 H (34-104) U/L Total Protein 5.2 L (6.0-8.3) gm/dl Albumin 2.3 L (3.4-5.0) gm/dl Globulin 2.9 (2.5-4.0) gm/dl Albumin/Globulin Ratio 0.8 L (0.9-2) TSH 2.056 (0.300-4.500) uIu/ml Urine Color Yellow Urine Appearance Clear (Clear) Urine pH 7.5 (4.5-7.5) Ur Specific [place] 1.012 (1.000-1.030) Urine Protein Negative (Negative) Urine Glucose (UA) Negative (Negative) Urine Ketones Negative (Negative) Urine Blood Negative (Negative) Urine Nitrite Negative (Negative) Urine Bilirubin Negative (Negative) Urine Urobilinogen Negative (Negative) Ur Leukocyte Esterase Negative (Negative) Administered Medications Discontinued Medications Sodium Chloride (Nss) 500 mls @ 999 mls/hr IV .Q31M ONE Stop: 02/07/25 19:55 Last Infusion: 02/07/25 21:45 Dose: Infused Documented By: Admin: 02/07/25 19:56 Dose: 999 mls/hr Documented By: CEF Midodrine (Midodrine Hcl 2.5 Mg Tab) 5 mg PO NOW STA Stop: 02/07/25 19:26 Last Admin: 02/07/25 19:53 Dose: 5 mg Documented By: CEF Imaging Data Radiologist's Impression: Chest X-Ray 02/07/25 18:25 Clinical History: Weakness Technique: A frontal view of the chest was obtained Comparison is made to the prior examination dated 01/14/2025 Findings: There is worsened diffuse interstitial prominence, concerning for mild pulmonary edema. There is more focal opacity in the left lung base could be due to either atelectasis or pneumonia. The heart size is within normal limits. No pleural effusion or pneumothorax is seen. There are suspected small calcified pulmonary granulomas No fracture is noted. No foreign body is seen Impression: 1. Mild pulmonary edema 2. Left lung base opacity that could be due to either atelectasis or pneumonia ACT 112: Positive. There are findings on this exam that require communication between the performing entity and the patient following Patient Test Result Information Act ([place] ACT 112) guidelines. Electronically signed by Adrian Hi 02-07-2025 7:10 PM Knee X-Ray 02/07/25 19:22 EXAM: Radiographs of the Left Knee 3 Views INDICATION: Posttraumatic pain TECHNIQUE: Three views of the left knee. COMPARISON: 01/08/2025 FINDINGS: Bones/joints: There is a subacute unhealed, anatomically aligned fracture of the left fibular neck with some developing callus. Osseous structures otherwise appear normal. No dislocation or subluxation. Smooth articular surfaces. No erosion or loose body. Soft tissues: No abnormality noted. No radiopaque foreign body noted. IMPRESSION: There is a subacute, unhealed, anatomically aligned fracture of the left fibular neck with developing callus. ACT 112: N/A Electronically signed by Abida Javier 02-07-2025 8:05 PM Knee X-Ray 02/07/25 19:22 EXAM: Radiographs of the Right Knee 3 Views INDICATION: Posttraumatic pain TECHNIQUE: Three views of the right knee. COMPARISON: No relevant prior studies available. FINDINGS: Bones/joints: No fracture, erosion or dislocation. Soft tissues: No abnormality noted. No radiopaque foreign body noted. IMPRESSION: No plain radiographic abnormality of the right knee. ACT 112: N/A Electronically signed by Abida Javier 02-07-2025 8:[address] 02/07/25 19:22 Exam(s): CT L SPINE EXAM: CT Lumbar Spine Without Intravenous Contrast CLINICAL HISTORY: pain fall. TECHNIQUE: Axial computed tomography images of the lumbar spine without intravenous contrast. CTDI is 39.4 mGy and DLP is 1207.88 mGy-cm. Automated exposure control was utilized for the study. A dose lowering technique was utilized adhering to the principles of ALARA. COMPARISON: 01/08/2025. FINDINGS: Vertebrae: Bones are osteopenic. Interval mild approximately 30% anterior superior wedge compression deformity of the L1 vertebral body without posterior retropulsion. Interval development of approximately 10% mild compression deformity of the L2 vertebral body without posterior retropulsion. No other fracture. Maintenance of height of the remainder of the lumbar vertebral bodies. No spondylolisthesis. Discs/spinal canal/neural foramina: Mild degenerative changes greatest at L3-4 through L5-S1, unchanged. Soft tissues: No paraspinal collection. Atherosclerotic vascular calcifications. IMPRESSION: Acute compression fractures of the L1 and L2 vertebral bodies without posterior retropulsion. Otherwise no change. Electronically signed by: Avni Hinds M.D. 02/07/25 23:[address] 02/07/25 19:22 Exam(s): CT PELVIS Without Contrast EXAM: CT Pelvis Without Intravenous Contrast CLINICAL HISTORY: pain fall. TECHNIQUE: Axial computed tomography images of the pelvis without intravenous contrast. CTDI is 34.22 mGy and DLP is 982.43 mGy-cm. Automated exposure control was utilized for the study. A dose lowering technique was utilized adhering to the principles of ALARA. COMPARISON: CT pelvis 12/05/2024 FINDINGS: Bowel: Abundant stool throughout the colon. No evidence for diverticulitis. Increased mild low density pelvic free fluid/ascites, slightly increased as compared prior study. Appendix: No findings to suggest acute appendicitis. Intraperitoneal space: Unremarkable. No free air. No significant fluid collection. Bladder: Partially contracted with nonspecific wall thickening. No stones. Reproductive: Unremarkable as visualized. Bones/joints: No acute fracture. No dislocation. Degenerative changes of the spine Soft tissues: Right posterior subcutaneous soft tissue overlying the upper right gluteal muscles. Redemonstrated fluid filled periumbilical hernia 3.6 x 6.7 cm, without involvement of bowel. Vasculature: Atherosclerotic vascular calcifications. No lower abdominal aortic aneurysm. Lymph nodes: Unremarkable. No enlarged lymph nodes. IMPRESSION: Subcutaneous bruising/infiltration overlying the upper right gluteal muscles. No acute fracture or dislocation. Mild increase ascites Electronically signed by: Avni Hinds M.D. 02/07/25 22:55 PM Discharge Plan Visit Data Chief Complaint: Weakness ED Provider: Ken Lyons Discharge Problem: Recurrent falls while walking, 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, Generalized weakness, BERT (acute kidney injury), Lumbar compression fracture Forms Stand Alone Forms: My [facility] Prescriptions Prescriptions: No Action tamsulosin 0.4 mg capsule 0.4 mg PO DAILY allopurinol 300 mg tablet 300 mg PO DAILY lactulose 10 gram/15 mL solution 45 ml PO TID sodium chloride 1,000 mg tablet,soluble 1,000 mg PO DAILY magnesium chloride [Mag-Delay] 64 mg tablet,delayed release (DR/EC) 64 mg PO DAILY Xifaxan 550 mg tablet 550 mg PO BID insulin degludec 100 unit/mL (3 mL) insulin pen 10 unit SUBCUT DAILY atorvastatin 20 mg Tablet 20 mg PO DAILY multivitamin Tablet 1 tab PO DAILY ascorbic acid (vitamin C) 1,000 mg Tablet 1 g PO DAILY pantoprazole 40 mg Tablet,Delayed Release (Dr/Ec) 40 mg PO BID Qty: 60 0RF docusate sodium 100 mg Capsule 100 mg PO BID mupirocin 2 % Ointment 1 applic TOPICAL TID PRN (Reason: Skin Irritation) Probiotic 10 billion cell Capsule 10,000 mmu cells PO BID midodrine 5 mg tablet 15 mg PO TID torsemide 10 mg tablet 10 mg PO DAILY ciprofloxacin HCl 500 mg tablet 500 mg PO DAILY potassium chloride 20 mEq tablet,ER particles/crystals 40 meq PO BID spironolactone 50 mg tablet 50 mg PO DAILY vitamin E (dl, acetate) 180 mg (400 unit) Capsule 180 mg PO DAILY Referrals Referrals: Krystian Palomo MD [Primary Care Provider] - Discharge Problem: Lumbar compression fracture Qualifiers: Encounter type: initial encounter Lumbar vertebra fracture level: unspecified lumbar vertebra Qualified Code(s): S32.000A - Wedge compression fracture of unspecified lumbar vertebra, initial encounter for closed fracture
[2025-02-07 19:53] LABS: INR 1.8 (0.9-1.1); Prothrombin Time 18.1 Seconds (9.0-12.0)
[2025-02-07] MEDS: MIDODRINE HCL 2.5 MG TAB PO STA (19:53)
[2025-02-07] MEDS: SODIUM CHLORIDE 0.9% 500 ML IV ONE (19:56)
--- NOTE | 2025-02-07 20:05 | XRay Report ---
EXAM: Radiographs of the Right Knee 3 Views INDICATION: Posttraumatic pain TECHNIQUE: Three views of the right knee. COMPARISON: No relevant prior studies available. FINDINGS: Bones/joints: No fracture, erosion or dislocation. Soft tissues: No abnormality noted. No radiopaque foreign body noted. IMPRESSION: No plain radiographic abnormality of the right knee. ACT 112: N/A Electronically signed by Abida Javier 02-07-2025 8:05 PM
--- NOTE | 2025-02-07 20:06 | XRay Report ---
EXAM: Radiographs of the Left Knee 3 Views INDICATION: Posttraumatic pain TECHNIQUE: Three views of the left knee. COMPARISON: 01/08/2025 FINDINGS: Bones/joints: There is a subacute unhealed, anatomically aligned fracture of the left fibular neck with some developing callus. Osseous structures otherwise appear normal. No dislocation or subluxation. Smooth articular surfaces. No erosion or loose body. Soft tissues: No abnormality noted. No radiopaque foreign body noted. IMPRESSION: There is a subacute, unhealed, anatomically aligned fracture of the left fibular neck with developing callus. ACT 112: N/A Electronically signed by Abida Javier 02-07-2025 8:05 PM
[2025-02-07 20:25] LABS: Appearance Urine Clear (Clear); Bilirubin Urine Negative (Negative); Blood Urine Negative (Negative); Color Urine Yellow; Glucose Urine UA Negative (Negative); Ketones Urine Negative (Negative); Leukocyte Esterase Urine Negative (Negative); Nitrite Urine Negative (Negative); Protein Urine Negative (Negative); Specific Gravity Urine 1.012 (1.000-1.030); Urobilinogen Urine Negative (Negative); pH Urine 7.5 (4.5-7.5)
--- NOTE | 2025-02-07 22:56 | CT Scan Report ---
Exam(s): CT PELVIS Without Contrast EXAM: CT Pelvis Without Intravenous Contrast CLINICAL HISTORY: pain fall. TECHNIQUE: Axial computed tomography images of the pelvis without intravenous contrast. CTDI is 34.22 mGy and DLP is 982.43 mGy-cm. Automated exposure control was utilized for the study. A dose lowering technique was utilized adhering to the principles of ALARA. COMPARISON: CT pelvis 12/05/2024 FINDINGS: Bowel: Abundant stool throughout the colon. No evidence for diverticulitis. Increased mild low density pelvic free fluid/ascites, slightly increased as compared prior study. Appendix: No findings to suggest acute appendicitis. Intraperitoneal space: Unremarkable. No free air. No significant fluid collection. Bladder: Partially contracted with nonspecific wall thickening. No stones. Reproductive: Unremarkable as visualized. Bones/joints: No acute fracture. No dislocation. Degenerative changes of the spine Soft tissues: Right posterior subcutaneous soft tissue overlying the upper right gluteal muscles. Redemonstrated fluid filled periumbilical hernia 3.6 x 6.7 cm, without involvement of bowel. Vasculature: Atherosclerotic vascular calcifications. No lower abdominal aortic aneurysm. Lymph nodes: Unremarkable. No enlarged lymph nodes. IMPRESSION: Subcutaneous bruising/infiltration overlying the upper right gluteal muscles. No acute fracture or dislocation. Mild increase ascites Electronically signed by: Avni Hinds M.D. 02/07/25 22:55 PM
--- NOTE | 2025-02-07 23:05 | CT Scan Report ---
Exam(s): CT L SPINE EXAM: CT Lumbar Spine Without Intravenous Contrast CLINICAL HISTORY: pain fall. TECHNIQUE: Axial computed tomography images of the lumbar spine without intravenous contrast. CTDI is 39.4 mGy and DLP is 1207.88 mGy-cm. Automated exposure control was utilized for the study. A dose lowering technique was utilized adhering to the principles of ALARA. COMPARISON: 01/08/2025. FINDINGS: Vertebrae: Bones are osteopenic. Interval mild approximately 30% anterior superior wedge compression deformity of the L1 vertebral body without posterior retropulsion. Interval development of approximately 10% mild compression deformity of the L2 vertebral body without posterior retropulsion. No other fracture. Maintenance of height of the remainder of the lumbar vertebral bodies. No spondylolisthesis. Discs/spinal canal/neural foramina: Mild degenerative changes greatest at L3-4 through L5-S1, unchanged. Soft tissues: No paraspinal collection. Atherosclerotic vascular calcifications. IMPRESSION: Acute compression fractures of the L1 and L2 vertebral bodies without posterior retropulsion. Otherwise no change. Electronically signed by: Avni Hinds M.D. 02/07/25 23:04 PM
--- OUTSIDE RECORDS SUMMARY | 2025-02-07 23:29 | External Medical Summary | Summary of Care ---
Author Name Unknown Organization [facility] Address [address] [place] [address] Phone [phone] Care Team Providers Care Covered Buckle Assembler Name Role Phone Krystian Palomo MD Primary Care Provide r Reason for Visit * Reason Onset Date Comments Imaging Records Request 02/05/2025 Encounter Details Date Type Department Care Team (Late st Contact Info) Description 02/05/2025 Telephone Radiology Film File [address], [place] [id number] Support, Imaging Radiology [address] [place] [address] Imaging Records Request Allergies Active Allergy Reactions Criticality Noted Date Comments Aspirin 01/28/2022 Other reaction(s): bloody nose Salicylates 08/08/2001 nose bleeds documented as of this encounter (statuses as of 02/05/2025) Medications Multivitamin Adult Oral Tablet daily . [...] morning and 1 Capsule before bedtime. Active Sodium Chloride 1 GM Oral Tablet [...] by mouth in the morning. 4 Active Dexcom G7 Sensor Use as [...] the morning. 3 mL 2 5 Active Taurine 500 MG Oral Capsule Take 1,000 mg by mouth in the morning. 30 Capsule 5 5 Active Torsemide 10 MG Oral Tablet (Demadex) Take 1 Tablet by mouth in the morning. 30 Tablet 5 5 Active Spironolactone 50 MG Oral Tablet (Aldactone) Take 1 Tablet by mouth in the morning. 30 Tablet 5 5 Active Ciprofloxacin HCl 500 MG Oral Tablet (Cipro) Take 1 Tablet by mouth in the morning. 30 Tablet 5 5 Active Vitamin E 100 UNIT Oral Capsule Take 1 Capsule by mouth in the morning. 30 Capsule 5 5 Active rifAXIMin 550 MG Oral Tablet (Xifaxan)Indication s: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) TAKE ONE TABLET BY MOUTH EVERY MORNING AND ONE TABLET AT BEDTIME 60 Tablet 4 5 Active Potassium Chloride ER 20 MEQ Oral Tablet Extended ReleaseIndications: Low serum potassium Take 1 Tablet by mouth in the morning and 1 Tablet before bedtime. 180 Tablet 1 5 Active Midodrine HCl 5 MG Oral Tablet (Proamatine) Take 3 Tablets by mouth in the morning and 3 Tablets at noon and 3 Tablets in the evening. 270 Tablet 5 5 Active Pantoprazole Sodium 40 MG Oral Tablet Delayed Release (Protonix) Take 1 Tablet by mouth in the morning and 1 Tablet before bedtime. 180 Tablet 1 5 Active documented as of this encounter (statuses as of 02/05/2025) Active Problems Problem Noted Date Diagnosed Date S/P TIPS (transjugular intrahepatic portosystemi c shunt) 01/28/2025 Pre-transplant evaluation for chronic liver dise ase 01/17/2025 Hepatocellular carcinoma 12/10/2024 Chronic hyponatremia 12/06/2024 Umbilical hernia 12/06/2024 Draining cutaneous sinus tract 12/06/2024 Malnutrition of moderate degree 12/06/2024 BPH without obstruction/lower urinary tract symp toms 12/22/2023 BMI 36.0-36.9,adult 10/24/2023 Overview (10/24/2023): 266 Cirrhosis of liver with ascites 07/05/2023 Hepatic encephalopathy 03/28/2022 Overview (12/06/2022): admitted [facility], ammonia 110 Nonrheumatic aortic valve stenosis 01/21/2022 Thrombocytopenia 05/21/2020 Overview (08/03/2021): 84,000 Chronic [...] as of this encounter (statuses as of 02/05/2025) Resolved Problems Problem Noted Date Diagnosed Date Resolved Date Decompensated hepatic cirrhosis 01/14/2025 01/29/2025 Recurrent pleural effusion on left 01/14/2025 01/29/2025 Ascites 12/06/2024 01/29/2025 Cardiac murmur 12/06/2024 12/10/2024 Idiopathic gout 04/29/2016 [...] as of this encounter (statuses as of 02/05/2025) Immunizations Name Administration Dates Next Due COVID-19 [...] Quit: 05/18/2005 Alcohol Use Standard Drinks/Week Comments Not Currently 0 (1 standard drink = 0.6 oz pur e alcohol) quit "2001" PHQ-2 Answer Date Recorded PHQ Adult Total Score 0 09/09/2024 Personal Safety Answer Date Recorded Do you feel unsafe or have concerns for your saf ety? No 01/14/2025 Do you have concerns for you r family's safety? (Household - for ages 0-17 years) Not on file 01/14/2025 Utilities Answer Date Recorded Do you have trouble paying y our heating, water, or electric bill? No 01/14/2025 Is your family able to pay t he heat, water, or electric bill? (Household - for ages 0-17 years) Not on file 01/14/2025 Does your family have access to good internet? (Household - for ages 0-17 years) Not on file 01/14/2025 Transportation Needs Answer Date Record ed Do you have trouble getting a ride to medical visits or work? (Adult - for ages 18 years and over) Not on file 01/14/2025 Does your family have a hard time getting a ride to doctors visits? (Household - for ages 0-17 years) Not on file 01/14/2025 Has lack of transportation k ept you from medical appointments, meetings, work, or from getting things needed for daily living? Check all that apply. No 01/14/2025 Do you (or your family) have trouble finding or paying for a ride (transportation)? (Household - for ages 0-17 years) Not on file 01/14/2025 Housing Stability Answer Date Recorded Do you currently live in a s helter or have no steady place to sleep at night? (Adult - for ages 18 years and over) Not on file 01/14/2025 Do you think you are at risk of becoming homeless? (Adult - for ages 18 years and over) Not on file 01/14/2025 Does your family worry about paying for your home or becoming homeless? (Household - for ages 0-17 years) Not on file 0 01/14/2025 Are you homeless or worried that you might be in the future? No 01/14/2025 Are you (or your family) hi eless or worried that you might be in the future? (Household - for ages 0-17 years) Not on file Food Insecurity Answer Date Recorded Worried About Running Out of Food in the Last Ye ar Not on file 01/14/2025 Ran Out of Food in the Last Year Not on file 01/14/2025 Do you need food for this week? 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 Answer Date of Assessment Author No 01/14/2025 8:39 PM EDT Daria Boucher RN * Are you blind or do you have serious difficulty seeing, even when wearing glasses? Answer Date of Assessment Author No 01/14/2025 8:39 PM EDT Daria Boucher RN * Do you have serious difficulty walking or climbing stairs? (5 years old or older) Answer Date of Assessment Author No 01/14/2025 8:39 PM EDT Daria Boucher RN * Do you have difficulty dressing or bathing? (5 years old or older) Answer Date of Assessment Author No 01/14/2025 8:39 PM EDT Daria Boucher RN * Because of a physical, mental, or emotional condition, do you have difficulty doing errands alone such as visiting a doctor’s office or shopping? (15 years old or older) Answer Date of Assessment Author No 01/14/2025 8:39 PM EDT Daria Boucher RN documented as of this encounter Mental Status * Because of a physical, mental, or emotional condition, do you have serious difficulty concentrating, remembering, or making decisions? (5 years old or older) Answer Entry Date Author No 01/14/2025 8:39 PM EDT Daria Boucher RN documented in this encounter Miscellaneous Notes * Telephone Encounter - Demario Llamas, Epic Support - 02/05/2025 8:48 AM EDT Michael Lai requesting 3-19-2025 to 01-20-2025 CT CHEST, CTA TAVR images be pushed through PACS. [employer] Authorization to Release on file. Images pushed to [employer] PACS external connection. documented in this encounter Plan of Treatment Upcoming Encounters Date Type Department Care Team (Late st Contact Info) Description 02/28/2025 11:15 AM EDT Appointment Radiology, [facility] [address] [place] [address] 03/10/2025 7:20 AM EDT Office Visit Family Medicine [address] [place] [phone] Krystian Palomo MD [address] [place] [address] [place] [address] 03/20/2025 10:30 AM EDT Office Visit Cardiology, [facility] [address] [place] [phone] Chino Carrillo PA-C [address] [place] [address] 04/02/2025 2:00 PM EDT Office Visit Gastroenterology, [facility] [address] [place] [phone] Ren Pineda CRNP [address] [place] [address] 04/18/2025 10:30 AM EDT Office Visit Gastroenterology, [facility] [address] [place] [phone] Ren Pineda CRNP [address] [place] [address] 06/02/2025 10:00 AM EDT Office Visit Family Medicine [address] [place] [phone] Krystian Palomo MD [address] [place] [address] [place] [address] 09/11/2025 2:00 PM EST Imaging Radiology [address] [place] [address] Scheduled Procedures Name Priority Associated Diagnoses Date/Ti [...] history exists Depression Screening 09/09/2025 09/09/2024 GFR 01/29/2026 01/29/2025, 04/0 10/2024, 01/27/2025, Additional history exists Lipid Panel 09/18/2028 09/18/2023, [...] this encounter Medical Devices Implanted Type Area Supply Planner Device Identifier Shelf Expiration Date Model / Serial / Lot Lipiodol Injection - [id number] Implanted:Qty: 1 on 08/02/2023 at [facility] [employer] 04/28/2026 [id number] 1-2 / / [id number] Syr Pf 2ml Embospheres 100-300 - [id number] Implanted:Qty: 1 on 08/02/2023 at [facility] [employer] [id number] 02/26/2026 [id number] / / [id number] Syr Pf 2ml Embospheres 100-300 - [id number] Implanted:Qty: 1 on 04/11/2024 at [facility] [employer] [id number] 12/27/2026 [id number] / / [id number] Lipiodol Injection - [id number] Implanted:Qty: 1 on 04/11/2024 at [facility] [employer] [id number] 1-2 / / Tip Endoprosthesis [id number] - [id number] Implanted:Qty: 1 on 01/27/2025 at [facility] [email or web address] [id number] 10/11/2027 [id number] / [id number] / [id number] documented as of this encounter Advance Directives * Full Code (Latest Code Status on File) Date Activated Date Inactivated Comments 01/14/2025 8:39 PM 01/29/2025 6:51 PM This order re flects the patients wishes and were consensually agreed upon. Question Answer Comments Discussion of Advance Directives occurred with: Patient * Full Code Date Activated Date Inactivated Comments 12/05/2024 11:24 PM 12/07/2024 5:18 PM This order re flects the patients wishes and were consensually agreed upon. Question Answer Comments Discussion of Advance Directives occurred with: Patient Care Teams Covered Buckle Assembler Relationship Specialty Start Date End Date Krystian Palomo MD [address] [place] [address] [place] [address] PCP - General Family Medicine 12/22/23 documented as of this encounter
--- OUTSIDE RECORDS SUMMARY | 2025-02-07 23:29 | External Medical Summary | Summary of Care ---
Author Name Unknown Organization [facility] Address [address] [place] [facility] [place] [place] [address] Phone [phone] Care Team Providers Care Business Unit Director Name Role Phone Krystian Palomo MD Primary Care Provide r Reason for Visit * Reason Onset Date Comments Medication Pre-auth 02/04/2025 Encounter Details Date Type Department Care Team (Late st Contact Info) Description 02/04/2025 Telephone Gastroenterology, [facility] [address] [place] [phone] Ren Pineda CRNP [address] [place] [address] Medication Pre-auth Allergies Active Allergy Reactions Criticality Noted Date Comments Aspirin 01/28/2022 Other reaction(s): bloody nose Salicylates 08/08/2001 nose bleeds documented as of this encounter (statuses as of 02/04/2025) Medications Multivitamin Adult Oral Tablet daily . [...] mouth in the morning. 09/02/20 24 Active Dexcom G7 Sensor Use as directed every 10 days. DxE11.9 3 Each 3 10/29/20 24 Active Allopurinol 300 MG Oral Tablet [...] morning. 3 mL 2 11/27/19 25 Active Pantoprazole Sodium 40 MG Oral Tablet Delayed Release (Protonix) Take 1 Tablet by mouth in the morning and 1 Tablet before bedtime. 01/01/20 25 Active Taurine 500 MG Oral Capsule Take 1,000 mg by mouth in the morning. 30 Capsule 5 01/30/20 25 Active Torsemide 10 MG Oral Tablet (Demadex) Take 1 Tablet by mouth in the morning. 30 Tablet 5 01/30/20 25 Active Spironolactone 50 MG Oral Tablet (Aldactone) Take 1 Tablet by mouth in the morning. 30 Tablet 5 01/30/20 25 Active Ciprofloxacin HCl 500 MG Oral Tablet (Cipro) Take 1 Tablet by mouth in the morning. 30 Tablet 5 01/30/20 25 Active Vitamin E 100 UNIT Oral Capsule Take 1 Capsule by mouth in the morning. 30 Capsule 5 01/30/20 25 Active rifAXIMin 550 MG Oral Tablet (Xifaxan)Indication s: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) TAKE ONE TABLET BY MOUTH EVERY MORNING AND ONE TABLET AT BEDTIME 60 Tablet 4 02/02/20 25 Active Potassium Chloride ER 20 MEQ Oral Tablet Extended ReleaseIndications: Low serum potassium Take 1 Tablet by mouth in the morning and 1 Tablet before bedtime. 180 Tablet 1 02/04/20 25 Active Midodrine HCl 5 MG Oral Tablet (Proamatine) Take 3 Tablets by mouth in the morning and 3 Tablets at noon and 3 Tablets in the evening. 270 Tablet 5 01/30/20 25 025 Discontin ued(Refil l) documented as of this encounter (statuses as of 02/04/2025) Active Problems Problem Noted Date Diagnosed Date [...] encephalopathy 03/28/2022 Overview (12/06/2022): admitted [facility], ammonia 110 Nonrheumatic aortic valve stenosis [...] as of this encounter (statuses as of 02/04/2025) Resolved Problems Problem Noted Date Diagnosed Date [...] as of this encounter (statuses as of 02/04/2025) Immunizations Name Administration Dates Next Due COVID-19 [...] = 0.6 oz pur e alcohol) quit "2001ish" PHQ-2 Answer Date Recorded PHQ Adult Total [...] file Not on file 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 Answer Date of Assessment Author No 01/14/2025 8:39 PM EDDaria Zuniga RN * Are you blind or do you have serious difficulty seeing, even when wearing glasses? Answer Date of Assessment Author No 01/14/2025 8:39 PM Daria Rodriguez RN * Do you have serious difficulty walking or climbing stairs? (5 years old or older) Answer Date of Assessment Author No 01/14/2025 8:39 PM Daria Rodriguez RN * Do you have difficulty dressing or bathing? (5 years old or older) Answer Date of Assessment Author No 01/14/2025 8:39 PM Daria Rodriguez RN * Because of a physical, mental, or emotional condition, do you have difficulty doing errands alone such as visiting a doctor’s office or shopping? (15 years old or older) Answer Date of Assessment Author No 01/14/2025 8:39 PM Daria Rodriguez RN documented as of this encounter Mental Status * Because of a physical, mental, or emotional condition, do you have serious difficulty concentrating, remembering, or making decisions? (5 years old or older) Answer Entry Date Author No 01/14/2025 8:39 PM EDT Citlaly, Daria L, RN documented in this encounter Miscellaneous Notes * Telephone Encounter - Alexandrea Wilson CPhT - 02/04/2025 1:48 PM EDT Patient's sister in law calling to check on status of prior auth for Xifaxa. Informed caller that this is in processing. Caller verbalized understanding and stated she would check back in a couple ofdays. Thank you, Alexandrea Wilson CPhT [employer] [facility] 02/04/2025,1:48 PM * Telephone Encounter - Linda Manuel CMA - 02/04/2025 11:16 AM EDT Gastro Pre-Cert Request Specialty Medication: No. 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 Site of care: Self-administered - route pre-cert request to [id number] Office Information: Prescriber: Ren BALDERRAMA documented in this encounter Plan of Treatment Upcoming Encounters Date Type Department Care Team (Late st Contact Info) Description 02/28/2025 11:15 AM EDT Appointment Radiology, [address] [place] [address] 03/10/2025 7:20 AM EDT Office Visit Family Medicine [address] [place] [phone] Krystian Palomo MD [address] [place] [address] [place] [address] 03/20/2025 10:30 AM EDT Office Visit Cardiology, [facility] [address] [place] [phone] Chino Carrillo PAAlysonC [address] [place] [address] 04/02/2025 2:00 PM EDT Office Visit Gastroenterology, [facility] [address] [place] [phone] Ren Pineda CRNP [address] [place] [address] 04/18/2025 10:30 AM EDT Office Visit Gastroenterology, [facility] [address] [place] [phone] Ren Pineda CRNP [address] [place] [address] 06/02/2025 10:00 AM EDT Office Visit Family Medicine [address] [place] [phone] Krystian Palomo MD [address] [place] [address] [place] [address] 09/11/2025 2:00 PM EST Imaging Radiology [address] [place] [address] Scheduled Procedures Name Priority Associated Diagnoses Date/Ti [...] this encounter Medical Devices Implanted Type Area Patient Access Representative Device Identifier Shelf Expiration Date Model / Serial / Lot Lipiodol Injection - [id number] Implanted:Qty: 1 on 08/02/2023 [facility] [employer] [facility] 04/28/2026 [id number] Syr Pf 2ml Embospheres 100-300 - [id number] Implanted:Qty: 1 on 08/02/2023 at [facility] [employer] [id number] 02/26/2026 S220GH / / [id number] Syr Pf 2ml Embospheres 100-300 - [id number] Implanted:Qty: 1 on 04/11/2024 at [facility] [employer] [id number] 12/27/2026 S220GH / / [id number] Lipiodol Injection - [id number] Implanted:Qty: 1 on 04/11/2024 at [facility] [employer] [id number] -2 / Tip Endoprosthesis [id number] - [id number] Implanted:Qty: 1 on 01/27/2025 at [facility] [employer] [id number] 10/11/2027 [id number] / [id number] / [id number] documented as of this encounter Advance Directives [...] Advance Directives occurred with: Patient Care Teams Business Unit Director Relationship Specialty Start Date End Date Krystian Palomo MD [address] [place] [address] [place] [address] PCP - General Family Medicine 12/22/23 documented as of this encounter
--- OUTSIDE RECORDS SUMMARY | 2025-02-07 23:29 | External Medical Summary | Summary of Care ---
Author Name Unknown Organization [facility] Address [address] [place] [address] Phone [phone] Care Team Providers Care Spinneret Cleaner Name Role Phone Krystian Palomo MD Primary Care Provide r Reason for Visit * Reason Onset Date Comments Medication Refill 02/04/2025 Encounter Details Date Type Department Care Team (Late st Contact Info) Description 02/04/2025 Refill Family [address] [phone] Krystian Palomo MD [address] [place] [address] [place] [address] Allergies Active Allergy Reactions Criticality Noted Date [...] before bedtime. 4050 mL 11/11/19 25 Active Insulin Degludec 100 UNIT/ML Subcutaneous Solution Pen-injector (Tresiba FlexTouch)Indicatio ns:Type 2 diabetes mellitus with hemoglobin A1c goal of less than 7.0% (HCC) Inject 10 Units under the skin in the morning. 3 mL 2 11/27/19 25 Active Taurine 500 MG Oral Capsule Take 1,000 mg by mouth in the morning. 30 Capsule 01/30/20 25 Active Torsemide 10 MG Oral Tablet (Demadex) Take 1 Tablet by mouth in the morning. 30 Tablet 01/30/20 25 Active Spironolactone 50 MG Oral Tablet (Aldactone) Take 1 Tablet by mouth in the morning. 30 Tablet 01/30/20 25 Active Ciprofloxacin HCl 500 MG [...] Tablets in the evening. 270 Tablet 5 02/05/20 25 Active Pantoprazole Sodium 40 MG Oral Tablet Delayed Release (Protonix) Take 1 Tablet by mouth in the morning and 1 Tablet before bedtime. 180 Tablet 1 02/06/20 25 Active Pantoprazole Sodium 40 MG Oral Tablet Delayed Release (Protonix) Take 1 Tablet by mouth in the morning and 1 Tablet before bedtime. 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 Answer Date of Assessment Author No 01/14/2025 8:39 PM Daria Rodriguez RN * Are you blind or do [...] Telephone Encounter - Krystian Palomo MD - 02/05/2025 7:46 AM EDT Signed Prescriptions: Disp Refills Pantoprazole Sodium 40 MG Oral Tablet Norah*180 Ta*1 Sig: Take 1 Tablet by mouth in the morning and 1 Tablet before bedtime. Authorizing Provider: KRYSTIAN PALOMO * Telephone Encounter - Susana Crenshaw RN - 02/04/2025 3:08 PM EDTPending Prescriptions: Disp Refills Pantoprazole Sodium 40 MG Oral Tablet Norah*180 Ta*1 Sig: Take 1 Tablet by mouth in the morning and 1 Tablet before bedtime. * Telephone Encounter - Renetta Antonio OSA - 02/04/2025 2:35 PM EDT Did you pend patient's preferred pharmacy and medication before forwarding?yes Pharmacy: [facility], [address] [place] Pending Prescriptions: Disp Refills Pantoprazole Sodium 40 MG Oral Tablet Del* Sig: Take 1 Tablet by mouth in the morning and 1 Tablet before bedtime. Last Visit: 01/07/2025 (in office), Visit date not found (telemedicine) Next Visit: 03/10/2025 If no future appointments scheduled, and last appointment is greater than a year ago, please schedule patient for a follow-up appointment Last date the medication was ordered: 3.4. Is this request for a controlled substance?No Urine Drug Screen: Results for orders placed [...] screening results are reflexed to confirmatory testing. *Note: Due to a large number of results and/or encounters for the requested time period, some results have not been displayed. A complete set of results can be found in Results Review. Patient Phone Numbers Labs: Lab Results Component Value Date/Time CREAT 1.2 01/29/2025 06:37 AM CREAT 0.98 01/13/2025 12:00 AM CREAT 0.9 11/24/2020 08:53 AM POTASSIUM 3.9 01/29/2025 06:37 AM POTASSIUM 3.5 01/27/2025 11:13 AM POTASSIUM 3.9 01/13/2025 12:00 AM POTASSIUM 3.7 11/24/2020 08:53 AM TSH 1.45 09/09/2024 12:00 PM TSH 1.34 08/25/2010 09:49 AM LDL 101 09/18/2023 11:41 AM LDL 62 11/24/2020 08:53 AM LDL NOT APPLICABLE 11/24/2020 08:53 AM LDLCALC 81 10/09/2019 12:00 AM ALT 44 01/29/2025 06:37 AM ALT 59 (H) 05/06/2003 08:20 AM HGBA1C 5.2 12/06/2024 06:53 AM HGBA1C 5.8 (H) 11/24/2020 08:53 AM documented in this encounter Plan of Treatment Upcoming Encounters Date Type Department Care Team (Late st Contact Info) Description 02/28/2025 11:15 AM EDT Appointment Radiology, [facility] [address] [facility] [place] [address] 03/10/2025 7:20 AM EDT Office Visit Family [address] [place] [phone] Krystian Palomo MD [address] [place] [address] [place] [address] 03/20/2025 10:30 AM EDT Office Visit Cardiology, [facility] [address] [place] [phone] Chino Carrillo PA-C [address] [place] [address] 04/02/2025 2:00 PM EDT Office Visit Gastroenterology, [facility] [address] [place] [phone] Ren Pineda CRNP [address] [place] [address] 04/18/2025 10:30 AM EDT Office Visit Gastroenterology, [facility] [address] [place] [phone] Ren Pineda CRNP [address] [place] [address] 06/02/2025 10:00 AM EDT Office Visit Family Medicine [address] [place] [phone] Krystian Palomo MD [address] [place] [address] [place] [address] 09/11/2025 2:00 PM EST Imaging Radiology [address] [place] [address] Scheduled Procedures Name Priority Associated Diagnoses Date/Ti [...] this encounter Medical Devices Implanted Type Area Wellhead Pumper Device Identifier Shelf Expiration Date Model / Serial / Lot Lipiodol Injection - [id number] Implanted:Qty: 1 on 08/02/2023 at [facility] [employer] 04/28/2026 79801-143 1-2 / / \\[id number] Syr Pf 2ml Embospheres 100-300 - [id number] Implanted:Qty: 1 on 08/02/2023 at [facility] [employer] [id number] 02/26/2026 S220GH / / [id number] Syr Pf 2ml Embospheres 100-300 - [id number] Implanted:Qty: 1 on 04/11/2024 at [facility] [employer] [id number] 12/27/2026 S220GH / / [id number] Lipiodol Injection - [id number] Implanted:Qty: 1 on 04/11/2024 at [facility] [employer] 21990-657 1-2 / / Tip Endoprosthesis [id number] - [id number] Implanted:Qty: 1 on 01/27/2025 at [facility] [employer] [id number] 10/11/2027 [id number] / [id number] / [id number] documented as of this encounter Advance Directives [...] Advance Directives occurred with: Patient Care Teams Spinneret Cleaner Relationship Specialty Start Date End Date Krystian Palomo MD [address] [place] [address] [place] [address] PCP - General Family Medicine 12/22/23 documented as of this encounter
--- OUTSIDE RECORDS SUMMARY | 2025-02-07 23:29 | External Medical Summary | Summary of Care ---
Author Name Unknown Organization [facility] Address [address] [facility] [place] [address] Phone [phone] Care Team Providers Care Credit Negotiator Name Role Phone Krystian Palomo MD Primary Care Provide r Reason for Visit * Reason Onset Date Comments Precert In Process 02/04/2025 9 Danielle [facility] Encounter Details Date Type Department Care Team (Late st Contact Info) Description 02/04/2025 Telephone Gastroenterology, [facility] [address] [place] [phone] Ren Pineda CRNP [address] [place] [address] Precert In Process ([facility]arm[facility]) Allergies Active Allergy Reactions Criticality Noted Date [...] bedtime. 180 Tablet 1 02/04/20 25 Active Pantoprazole Sodium 40 MG Oral Tablet Delayed Release (Protonix) Take 1 Tablet by mouth in the morning and 1 Tablet before bedtime. 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 Thank you, Alexandrea Wilson CPhT Fire Assistant II [facility] Services ([facility]) 02/04/2025,1:48 PM * Telephone Encounter - Linda Manuel CMA - 02/04/2025 11:16 AM EDT Gastro Pre-Cert Request Specialty Medication: No. 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 Site of care: Self-administered - route pre[facility] Office Information: Prescriber: Ren BALDERRAMA documented in this encounter Plan of Treatment Upcoming Encounters Date Type Department Care Team (Late st Contact Info) Description 02/28/2025 11:15 AM EDT Appointment Radiology, [address] [place] [address] 03/10/2025 7:20 AM EDT Office Visit Family Medicine [address] [place] [phone] Krystian Palomo MD [address] [place] [address] [place] [address] 03/20/2025 10:30 AM EDT Office Visit Cardiology, [facility] [address] [place] [phone] Chino Carrillo PA-C [address] [place] [address] 04/02/2025 2:00 PM EDT Office Visit Gastroenterology, [facility] [address] [place] [address] Ren Pineda CRNP [address] [place] [address] 04/18/2025 10:30 AM EDT Office Visit Gastroenterology, [facility] [address] [place] [phone] Ren Pineda CRNP [address] [place] [address] 06/02/2025 10:00 AM EDT Office Visit Family Medicine [address] [place] [phone] Krystian Palomo MD [address] [place] [address] [place] [address] 09/11/2025 2:00 PM EST Imaging Radiology [address] [place] [address] Scheduled Procedures Name Priority Associated Diagnoses Date/Ti [...] this encounter Medical Devices Implanted Type Area Natural Gas Shothole Driller Device Identifier Shelf Expiration Date Model / Serial / Lot Lipiodol Injection - [id number] Implanted:Qty: 1 on 08/02/2023 at [facility] [employer] 04/28/2026 97505-502 1-2 / / \\[id number] Syr Pf 2ml Embospheres 100-300 - [id number] Implanted:Qty: 1 on 08/02/2023 at [facility] [employer] [id number] 02/26/2026 S220GH / / [id number] Syr Pf 2ml Embospheres 100-300 - [id number] Implanted:Qty: 1 on 04/11/2024 at [facility] [employer] [id number] 12/27/2026 S220GH / / [id number] Lipiodol Injection - [id number] Implanted:Qty: 1 on 04/11/2024 at [facility] [employer] [place] [address]44[address]-833 1-2 / / Tip Endoprosthesis [id number] - [id number] Implanted:Qty: 1 on 01/27/2025 at [facility] [employer] [id number] 10/11/2027 [id number] / [id number] / [id number] documented as of this encounter Advance Directives [...] Advance Directives occurred with: Patient Care Teams Credit Negotiator Relationship Specialty Start Date End Date Krystian Palomo MD [address] [place] [address] [place] [address] PCP - General Family Medicine 12/22/23 documented as of this encounter
--- OUTSIDE RECORDS SUMMARY | 2025-02-07 23:29 | External Medical Summary | Summary of Care ---
Author Name Unknown Organization [facility] Address [address] [place] [address] Phone [phone] Care Team Providers Care Band Tier Name Role Phone Krystian Palomo MD Primary Care Provide r Reason for Visit * Reason Onset Date Comments Medication Refill 02/02/2025 Encounter Details Date Type Department Care Team (Late st Contact Info) Description 02/02/2025 Refill [facility] General Internal Medicine [address], [place] [phone] Bhupinder Ruiz MD [address] [place], [place] [phone] Allergies Active Allergy Reactions Criticality Noted Date [...] evening. 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 Thank you, Makenzie Morel PharmD Clinical Pharmacist [facility] ([facility]) [phone] 02/04/2025, 2:00 PM * Telephone Encounter - Cortez Rg PHARM Tech - 02/04/2025 1:42 PM EDT Please resend Rx to [facility], [address] [place]. Confirmed pharmacy did not receive original prescription. Pending Prescriptions: Disp Refills Midodrine HCl 5 MG Oral Tablet (Proamatin*270 Ta*5 Sig: Take 3 Tablets by mouth in the morning and 3 Tablets at noon and 3 Tablets in the evening. Last Visit: Visit date not found (in office), Visit date not found (telemedicine) Visit date not found If no future appointments scheduled, and last appointment is greater than a year ago, please schedule patient for a follow-up appointment Last date the medication was ordered: 01/29/2025 Patient Phone Numbers Labs: Lab Results Component [...] AM HGBA1C 5.8 (H) 11/24/2020 08:53 AM * Telephone Encounter - Marva Rodríguez CMA - 02/03/2025 2:27 PM EDT Patient requesting a refill on Midodrine, too soon to fill medication. * Telephone Encounter - Elle Garcia OSA - 02/02/2025 10:50 AM EDTPending Prescriptions: Disp Refills Midodrine HCl 5 MG Oral Tablet (Proamatine)270 Ta*5 Sig: Take 3Tablets by mouth in the morning and 3 Tablets at noon and 3 Tablets in the evening. documented in this encounter Plan of Treatment Upcoming Encounters Date Type Department Care Team (Late st Contact Info) Description 02/28/2025 11:15 AM EDT Appointment Radiology, [place] [address] [place] [address] 03/10/2025 7:20 AM EDT Office Visit Family [address] [place] [phone] Krystian Palomo MD [address] [place] [address] [place] [address] 03/20/2025 10:30 AM EDT Office Visit Cardiology, [facility] [address] [place] [phone] Chino Carrillo PA-C [address] [place] [address] 04/02/2025 2:00 PM EDT Office Visit Gastroenterology, [facility] [address] [place] [phone] Ren Pineda CRNP [address] [place] [address] 04/18/2025 10:30 AM EDT Office Visit Gastroenterology, [facility] [address] [place] [phone] Ren Pineda CRNP [address] [place] [address] 06/02/2025 10:00 AM EDT Office Visit Family Medicine [address] [place] [phone] Krystian Palomo MD [address] [place] [address] [place] [address] 09/11/2025 2:00 PM EST Imaging Radiology [address] [place] [address] Scheduled Procedures Name Priority Associated Diagnoses Date/Ti [...] this encounter Medical Devices Implanted Type Area Photo Offset Printer Device Identifier Shelf Expiration Date Model / Serial / Lot Lipiodol Injection - [id number] Implanted:Qty: 1 on 08/02/2023 at [facility] [employer] 04/28/2026 35659-214 1-2 / / [id number] Syr Pf 2ml Embospheres 100-300 - [id number] Implanted:Qty: 1 on 08/02/2023 at [facility] [employer] [id number] 02/26/2026 S220GH / / [id number] Syr Pf 2ml Embospheres 100-300 - [id number] Implanted:Qty: 1 on 04/11/2024 at [facility] [employer] [id number] 12/27/2026 S220GH / / [id number] Lipiodol Injection - [id number] Implanted:Qty: 1 on 04/11/2024 at [facility] [employer] 45536-363 1-2 / / Tip Endoprosthesis [id number] - [id number] Implanted:Qty: 1 on 01/27/2025 at [facility] [employer] [id number] 10/11/2027 [id number] / [id number] / [id number] documented as of this encounter Advance Directives [...] Advance Directives occurred with: Patient Care Teams Band Tier Relationship Specialty Start Date End Date Krystian Palomo MD [address] [place] [address] [place] [address] PCP - General Family Medicine 12/22/23 documented as of this encounter
--- OUTSIDE RECORDS SUMMARY | 2025-02-07 23:29 | External Medical Summary | Summary of Care ---
Author Name Unknown Organization [facility] Address [address] [facility] [address] Phone [phone] Care Team Providers Care Kilnman Name Role Phone Krystian Palomo MD Primary Care Provide r Reason for Visit * Reason Onset Date Comments Precert Approved 02/04/2025 Xifaxan Encounter Details Date Type Department Care Team (Late st Contact Info) Description 02/04/2025 Telephone Gastroenterology, [facility] [address] [place] [phone] Ren Pineda CRNP [address] [place] [address] Precert Approved (Xifaxan) Allergies Active Allergy Reactions Criticality Noted Date [...] 07/05/2023 Hepatic encephalopathy 03/28/2022 Overview (12/06/2022): admitted [facility], ammonia 110 Nonrheumatic aortic valve stenosis 01/21/2022 [...] file Not on file Not on file 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 * Telephone Encounter - Linda aMnuel CMA - 02/05/2025 12:59 PM EDT Type Date User Summary Attachment Precert 02/05/2025 12:50 PM Danielle George OSA Please see scanned fax from insurance under the Media Tab. - Note: Please see scanned fax from insurance under the Media Tab. Approved/Denied: approved Drug Name and Formulation: Xifaxan 550mg 1 tablet in the AM 1 tablet hs How Prescribed(directions/sig): Xifaxan 550mg 1 tablet in the AM 1 tablet hs Qty and Day Supply: 60/30 Did you receive insurance information from outside the chart? No, received insurance information within the chart Valid auth start date: 02/05/2025 Valid auth end date: 08/04/2025 Rx Insurance Info: [employer] [place] Reference #: [id number] Danielle George Medication Pottery Decorator III [facility] ([facility]) P: [phone] F: [phone] 02/05/25,12:50 PM . Type Date User Summary Attachment Precert 02/05/2025 9:40 AM Danielle George OSA [facility] Authorization Submission - Note: [facility] Authorization Submission Submission Information: Medication: Xifaxan 550mg 1 tablet in the AM 1 tablet hs Portal [facility] Insurance: [place] [employer] Authorization #/Mejia: [id number] * Telephone Encounter - [place]rea Wilson CPhT - 02/04/2025 1:48 PM EDT Patient's sister in law calling to check on status of prior auth for Xifaxa. Informed caller that this is in processing. Caller verbalized understanding and stated she would check back in a couple ofdays. Thank you, Alexandrea Wilson CPhT Studio Operations Engineer In Charge II [facility] Pharmacy Services ([facility]PS) 02/04/2025,1:48 PM * Telephone Encounter - Linda Manuel CMA - 02/04/2025 11:16 AM EDT Gastro Pre-Cert Request Specialty Medication: No. 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 Site of care: Self-administered - route pre-cert request to [facility] Office Information: Prescriber: Ren BALDERRAMA documented in this encounter Plan of Treatment Upcoming Encounters Date Type Department Care Team (Late st Contact Info) Description 02/28/2025 11:15 AM EDT Appointment Radiology, [address] [place] [address] 03/10/2025 7:20 AM EDT Office Visit Family Medicine [address] [place] [phone] Krystian Palomo MD [address] [place] [address] [place] [address] 03/20/2025 10:30 AM EDT Office Visit Cardiology, [facility] [address] [place] [phone] Chino Carrillo PA-C [address] [place] [address] 04/02/2025 2:00 PM EDT Office Visit Gastroenterology, [facility] [address] [place] [phone] Ren Pineda CRNP [address] [place] [address] 04/18/2025 10:30 AM EDT Office Visit Gastroenterology, [facility] [address] [place] [phone] Ren Pineda CRNP [address] [place] [address] 06/02/2025 10:00 AM EDT Office Visit Family Medicine [address] [place] [phone] Krystian Palomo MD [address] [place] [address] [place] [address] 09/11/2025 2:00 PM EST Imaging Radiology [address] [place] [address] Scheduled Procedures Name Priority Associated Diagnoses Date/Ti [...] Depression Screening 09/09/2025 09/09/2024 GFR 01/29/2026 01/29/2025, 040 10/2024, 01/27/2025, Additional history exists Lipid Panel [...] this encounter Medical Devices Implanted Type Area Delivery Department Supervisor Device Identifier Shelf Expiration Date Model / Serial / Lot Lipiodol Injection - [id number] Implanted:Qty: 1 on 08/02/2023 at [facility] [employer] 04/28/2026 [address]68 1-\\[id number] Syr Pf 2ml Embospheres 100-300 - [id number] Implanted:Qty: 1 on 08/02/2023 at [facility] [employer] [id number] 02/26/2026 S220GH / / [id number] Syr Pf 2ml Embospheres 100-300 - [id number] Implanted:Qty: 1 on 04/11/2024 at [facility] [employer] [id number] 12/27/2026 S220GH / / [id number] Lipiodol Injection - [id number] Implanted:Qty: 1 on 04/11/2024 at [facility] [employer] 36392-445 1-2 / / Tip Endoprosthesis [id number] - [id number] Implanted:Qty: 1 on 01/27/2025 at [facility] [employer] [id number] 10/11/2027 [id number] / [id number] documented as of this encounter Advance Directives [...] Advance Directives occurred with: Patient Care Teams Kilnman Relationship Specialty Start Date End Date Krystian Palomo MD [address] [place] [address] [place] [phone] PCP - General Family Medicine 12/22/23 documented as of this encounter
--- OUTSIDE RECORDS SUMMARY | 2025-02-07 23:29 | External Medical Summary | Summary of Care ---
Author Name Unknown Organization [facility] Address [address] [facility] [place] [address] Phone [phone] Care Team Providers Care Cellophane Bag Machine Operator Name Role Phone Krystian Palomo MD Primary Care Provide r Reason for Visit * Reason Onset Date Comments Precert In Process 02/04/2025 9 Danielle JOHNSON [facility] Encounter Details Date Type Department Care Team (Late st Contact Info) Description 02/04/2025 Telephone Gastroenterology, 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 Thank you, Alexandrea Wilson CPhT Photocopy Operator II [facility] Services ([facility]PS) 02/04/2025,1:48 PM * Telephone Encounter - Linda Manuel CMA - 02/04/2025 11:16 AM EDT Gastro Pre-Cert Request Specialty Medication: No. 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 [address] [place] [phone] Chino Carrillo PA-C [address] [place] [address] 04/02/2025 2:00 PM EDT Office Visit Gastroenterology, [facility] [address] [place] [address] Ren Pineda CRNP [address] [place] [address] 04/18/2025 10:30 AM EDT Office Visit Gastroenterology, [facility] [address] [place] [phone] Ren Pineda CRNP [address] [place] [address] 06/02/2025 10:00 AM EDT Office Visit Family Medicine [address] [place] [phone] Krystian Palomo MD [address] [place] [address] [place] [address] 09/11/2025 2:00 PM EST Imaging Radiology [address] [place] [address] Scheduled Procedures Name Priority Associated Diagnoses Date/Ti [...] this encounter Medical Devices Implanted Type Area Architectural Project Manager Device Identifier Shelf Expiration Date Model / Serial / Lot Lipiodol Injection - [id number] Implanted:Qty: 1 on 08/02/2023 at [facility] [employer] 04/28/2026 72394-600 1-2 / / [id number] Syr Pf 2ml Embospheres 100-300 - [id number] Implanted:Qty: 1 on 08/02/2023 at [facility] [employer] [id number] 02/26/2026 S220GH / / [id number] Syr Pf 2ml Embospheres 100-300 - [id number] Implanted:Qty: 1 on 04/11/2024 at [facility] [employer] [id number] 12/27/2026 S220GH / / [id number] Lipiodol Injection - [id number] Implanted:Qty: 1 on 04/11/2024 at [facility] [employer] 63427-733 1-2 / / Tip Endoprosthesis [id number] - [id number] Implanted:Qty: 1 on 01/27/2025 at [facility] [employer] [id number] 10/11/2027 [id number] / [id number] / [id number] documented as of this encounter Advance Directives [...] Advance Directives occurred with: Patient Care Teams Cellophane Bag Machine Operator Relationship Specialty Start Date End Date Krystian Palomo MD [address] [place] [address] [place] [address] PCP - General Family Medicine 12/22/23 documented as of this encounter
--- OUTSIDE RECORDS SUMMARY | 2025-02-07 23:29 | External Medical Summary | Summary of Care ---
Author Name Unknown Organization [facility] Address [address] [facility] [address] Phone [phone] Care Team Providers Care Sausage Cutter Name Role Phone Krystian Palomo MD Primary Care Provide r Reason for Visit * Reason Onset Date Comments Precert Approved 02/04/2025 Xifaxan Encounter Details Date Type Department Care Team (Late st Contact Info) Description 02/04/2025 Telephone Gastroenterology, [facility] [address] [place] [phone] Ren Pineda CRNP [address] [place] [address] Precert Approved (Xifaxan) Allergies Active Allergy Reactions [...] 07/05/2023 Hepatic encephalopathy 03/28/2022 Overview (12/06/2022): admitted [facility], ammonia 110 Nonrheumatic aortic valve stenosis [...] file Not on file 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 * Telephone Encounter - Linda Manuel CMA - 02/05/2025 12:59 PM EDT Type [...] auth end date: 08/04/2025 Rx Insurance Info: [employer] [place] Reference #: [id number] Danielle George Medication Radio Repair Teacher III [facility] ([facility]) P: [phone] F: [phone] 02/05/25,12:50 PM . Type Date User Summary Attachment Precert 02/05/2025 9:40 AM Danielle George OSA [facility] Authorization Submission - Note: [facility] Authorization Submission Submission Information: Medication: Xifaxan 550mg 1 tablet in the AM 1 tablet hs Portal used: [facility] Insurance: [place] [employer] Authorization #/Mejia: [id number] * Telephone Encounter - Alexandrea Wilson CPhT - 02/04/2025 1:48 PM EDT Patient's sister in law calling to check on status of prior auth for Xifaxa. Informed caller that this is in processing. Caller verbalized understanding and stated she would check back in a couple ofdays. Thank you, Alexandrea Wilson CPhT Manager Validation II [facility] Pharmacy Services ([facility]PS) 02/04/2025,1:48 PM * Telephone Encounter - Linda Manuel CMA - 02/04/2025 11:16 AM EDT Gastro Pre-Cert Request Specialty Medication: No. 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 Site of care: Self-administered - route pre-cert request to [facility] Office Information: Prescriber: Ren BALDERRAMA documented in this encounter Plan of Treatment Upcoming Encounters Date Type Department Care Team (Late st Contact Info) Description 02/28/2025 11:15 AM EDT Appointment Radiology, [address] [place] [address] 03/10/2025 7:20 AM EDT Office Visit Family Medicine [address] [place] [phone] Krystian Palomo MD [address] [place] [address] [place] [address] 03/20/2025 10:30 AM EDT Office Visit Cardiology, [facility] [address] [place] [phone] Chino Carrillo PA-C [address] [place] [address] 04/02/2025 2:00 PM EDT Office Visit Gastroenterology, [facility] [address] [place] [phone] Ren Pineda CRNP [address] [place] [address] 04/18/2025 10:30 AM EDT Office Visit Gastroenterology, [facility] [address] [place] [phone] Ren Pineda CRNP [address] [place] [address] 06/02/2025 10:00 AM EDT Office Visit Family Medicine [address] [place] [phone] Krystian Palomo MD [address] [place] [address] [place] [address] 09/11/2025 2:00 PM EST Imaging Radiology [address] [place] [address] Scheduled Procedures Name Priority Associated Diagnoses Date/Ti [...] encounter Medical Devices Implanted Type Area Supervisor Dumping Device Identifier Shelf Expiration Date Model / Serial / Lot Lipiodol Injection - [id number] Implanted:Qty: 1 on 08/02/2023 at [facility] [employer] 04/28/2026 35308-584 1-\[id number] Syr Pf 2ml Embospheres 100-300 - [id number] Implanted:Qty: 1 on 08/02/2023 at [facility] [employer] [id number] 02/26/2026 S220GH / / [id number] Syr Pf 2ml Embospheres 100-300 - [id number] Implanted:Qty: 1 on 04/11/2024 at [facility] [employer] [id number] 12/27/2026 S220GH / / [id number] Lipiodol Injection - [id number] Implanted:Qty: 1 on 04/11/2024 at [facility] [employer] 03537-171 1-2 / / Tip Endoprosthesis [id number] - [id number] Implanted:Qty: 1 on 01/27/2025 at [facility] [employer] [id number] 10/11/2027 [id number] / [id number] documented as of this encounter Advance Directives [...] Advance Directives occurred with: Patient Care Teams Sausage Cutter Relationship Specialty Start Date End Date Krystian Palomo MD [address] [place] [address] [place] [phone] PCP - General Family Medicine 12/22/23 documented as of this encounter
--- OUTSIDE RECORDS SUMMARY | 2025-02-07 23:30 | External Medical Summary | Summary of Care ---
Author Name Unknown Organization [facility] Address [address] [place] [address] Phone [phone] Care Team Providers Care Cuff Slitter Name Role Phone Krystian Palomo MD Primary Care Provide r Reason for Visit * Reason Onset Date Comments Fax 01/31/2025 Encounter Details Date Type Department Care Team (Late st Contact Info) Description 01/31/2025 Telephone Family [address] [phone] Krystian Palomo MD [address] [place] [address] [place] [address] Fax Allergies Active Allergy Reactions Criticality Noted Date Comments Aspirin 01/28/2022 Other reaction(s): bloody nose Salicylates 08/08/2001 nose bleeds documented as of this encounter (statuses as of 01/31/2025) Medications Multivitamin Adult Oral Tablet daily . [...] and 2 Tablets before bedtime. 5 Active Pantoprazole Sodium 40 MG Oral Tablet Delayed Release (Protonix) Take 1 Tablet by mouth in the morning and 1 Tablet before bedtime. 5 Active Taurine 500 MG Oral Capsule [...] the morning. 30 Capsule 5 5 Active Midodrine HCl 5 MG Oral Tablet (Proamatine) Take 3 Tablets by mouth in the morning and 3 Tablets at noon and 3 Tablets in the evening. 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 This sounds like a possible scam. There is no where the patient called requested a prescription be changed or sent to another pharmacy. * Telephone Encounter - Katelynn Sims OSA - 01/31/2025 11:34 AM EDT Received a call asking if fax was received by office. Name/Company sending fax: Alreen with [employer] What fax is pertaining to: prescription change request Date(s) they sent request: 01/30/2025 Verified fax number they are sending to is correct (Y or N): yes- correct fax number ending in [phone] Callback Number for the clinic to call to verified if fax was received: [phone] and please give reference #: [id number] documented in this encounter Plan of Treatment Upcoming Encounters Date Type Department Care Team (Late st Contact Info) Description 02/04/2025 12:30 PM EDT Office Visit Gastroenterology, [facility] [address] [place] [phone] Ren Pineda CRNP [address] [place] [address] 03/10/2025 7:20 AM EDT Office Visit Family Medicine [address] [place] [phone] Krystian Palomo MD [address] [place] [address] [place] [address] 03/20/2025 10:30 AM EDT Office Visit Cardiology, [facility] [address] [place] [phone] Chino Carrillo PA-C [address] [place] [address] 04/18/2025 10:30 AM EDT Office Visit Gastroenterology, [facility] [address] [place] [phone] Ren Pineda CRNP [address] [place] [address] 06/02/2025 10:00 AM EDT Office Visit Family Medicine [address] [place] [phone] Krystian Palomo MD [address] [place] [address] [place] [address] 09/11/2025 2:00 PM EST Imaging Radiology [address] [place] [address] Scheduled Procedures Name Priority Associated Diagnoses Date/Ti [...] Depression Screening 09/09/2025 09/09/2024 GFR 01/29/2026 01/29/2025, 10/2024, 01/27/2025, Additional history exists Lipid Panel [...] this encounter Medical Devices Implanted Type Area Structures Engineer Device Identifier Shelf Expiration Date Model / Serial / Lot Lipiodol Injection - [id number] Implanted:Qty: 1 on 08/02/2023 at [facility] [employer] 04/28/2026 [id number] -[id number] Syr Pf 2ml Embospheres 100-300 - [id number] Implanted:Qty: 1 on 08/02/2023 at [facility] [employer] [id number] 02/26/2026 S220 / / [id number] Syr Pf 2ml Embospheres 100-300 - [id number] Implanted:Qty: 1 on 04/11/2024 at [facility] [employer] [id number] 12/27/2026 S220GH / / [id number] Lipiodol Injection - [id number] Implanted:Qty: 1 on 04/11/2024 at [facility] [employer] [address]21[address]-922 1-2 / / Tip Endoprosthesis [id number] - [id number] Implanted:Qty: 1 on 01/27/2025 at [facility] [employer] [id number] 10/11/2027 [id number] / [id number] documented as of this encounter Advance Directives [...] Advance Directives occurred with: Patient Care Teams Cuff Slitter Relationship Specialty Start Date End Date Krystian Palomo MD [address] [place] [address] [place] [address] PCP - General Family Medicine 12/22/23 documented as of this encounter
--- OUTSIDE RECORDS SUMMARY | 2025-02-07 23:30 | External Medical Summary | Summary of Care ---
Author Name Unknown Organization [facility] Address [address] [place] [address] Phone [phone] Care Team Providers Care Clinical Education Manager Name Role Phone Joann Collier MD Primary Care Provide r Reason for Visit * Reason Onset Date Comments Med Request 01/31/2025 Encounter Details Date Type Department Care Team (Late st Contact Info) Description 01/31/2025 Telephone Family [address] [phone] Joann Collier MD [address] [place] [address] [place] [address] Med Request Allergies Active Allergy Reactions Criticality Noted Date Comments Aspirin 01/28/2022 Other reaction(s): bloody nose Salicylates 08/08/2001 nose bleeds documented as of this encounter (statuses as of 02/03/2025) Medications Multivitamin Adult Oral Tablet daily . [...] every 10 days. 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 In the morning.. 90 Tablet 1 025 Active Tamsulosin HCl 0.4 MG Oral Capsule (Flomax)Indication s:Urinary retention TAKE ONE CAPSULE BY MOUTH EVERY DAY 90 Capsule 1 025 Active Mupirocin 2 % External Ointment (Bactroban) Apply topically to affected area 3 times a day. At hospital discharge 22 g 025 Active Lactulose 10 GM/15ML Oral Solution (Constulose)Indica tions:Hepatic encephalopathy (HCC) Take 45 mL by mouth in the morning and 45 mL at noon and 45 mL before bedtime. 4050 mL 025 Active Insulin Degludec 100 UNIT/ML Subcutaneous Solution Pen-injector (Tresiba FlexTouch)Indicati ons:Type 2 diabetes mellitus with hemoglobin A1c goal of less than 7.0% (HCC) Inject 10 Units under the skin in the morning. 3 mL 2 025 Active Pantoprazole Sodium 40 MG Oral Tablet Delayed Release (Protonix) Take 1 Tablet by mouth in the morning and 1 Tablet before bedtime. 025 Active Taurine 500 MG Oral Capsule Take 1,000 mg by mouth in the morning. 30 Capsule 5 025 Active Torsemide 10 MG Oral Tablet (Demadex) Take 1 Tablet by mouth in the morning. 30 Tablet 5 025 Active Spironolactone 50 MG Oral Tablet (Aldactone) Take 1 Tablet by mouth in the morning. 30 Tablet 5 025 Active Ciprofloxacin HCl 500 MG Oral Tablet (Cipro) Take 1 Tablet by mouth in the morning. 30 Tablet 5 025 Active Vitamin E 100 UNIT Oral Capsule Take 1 Capsule by mouth in the morning. 30 Capsule 5 025 Active Midodrine HCl 5 MG Oral Tablet (Proamatine) Take 3 Tablets by mouth in the morning and 3 Tablets at noon and 3 Tablets in the evening. 270 Tablet 5 025 Active Potassium Chloride ER 20 MEQ Oral Tablet Extended ReleaseIndications :Low serum potassium Take 1 Tablet by mouth in the morning and 1 Tablet before bedtime. 180 Tablet 1 025 Active rifAXIMin 550 MG Oral Tablet (Xifaxan)Indicatio ns: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) TAKE ONE TABLET BY MOUTH EVERY MORNING AND ONE TABLET AT BEDTIME 60 Tablet 12 024 2024 Discontinued Potassium Chloride Maryam ER 10 MEQ Oral Tablet Extended ReleaseIndications :Low serum potassium Take 2 Tablets by mouth in the morning and 2 Tablets before bedtime. 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 Not on file [...] Miscellaneous Notes * Addendum Note - Joann Collier MD - 02/03/2025 1:23 PM EDTAddended by: JOANN COLLIER on: 02/03/2025 01:23 PM Modules accepted: Orders * Telephone Encounter - Joann Collier MD - 02/03/2025 1:22 PM EDT New med sent Ktab 20 meq BID * Telephone Encounter - Susana Crenshaw RN - 02/03/2025 1:13 PM EDT See below, are you ok with the switch of medication * Telephone Encounter - Cinthia Dickerson CPhT - 02/03/2025 11:52 AM EDT Melida calling on behalf of [employer] regarding change for Potassium Chloride Maryam ER 10 MEQ Oral Tablet Extended Release, looking to switch to K-tab generic. Please review. Pt preferred pharmacy is [facility], [address] [place] This is cost savings program for the pt. Thank you, Cinthia Dickerson CPhT Hauling Contractor II Centralized Clinical Pharmacy Services ([facility]PS) 02/03/2025,11:54 AM * Telephone Encounter - Daniella Paez CMA [...] was received by office. Name/Company sending fax: Arleen with [employer] What fax is pertaining to: prescription change request Date(s) they sent request: 01/30/2025 Verified fax number they are sending to is correct (Y or N): yes- correct fax number ending in [phone] Callback Number for the clinic to call to verified if fax was received: [phone] and please give reference #: [id number] documented in this encounter Plan of Treatment Upcoming Encounters Date Type Department Care Team (Late st Contact Info) Description 02/04/2025 12:30 PM EDT Office Visit Gastroenterology, [facility] [address] [place] [phone] Ren Pineda CRNP [address] [place] [address] 02/28/2025 11:15 AM EDT Appointment Radiology, [address] [place] [address] 03/10/2025 7:20 AM EDT Office Visit Family Medicine [facility] [place] [place] [phone] Joann Collier MD [address] [place] [address] [place] [address] 03/20/2025 10:30 AM EDT Office Visit Cardiology, [facility] [address] [place] [phone] Chino Carrillo PA-C [address] [place] [address] 04/18/2025 10:30 AM EDT Office Visit Gastroenterology, [facility] [address] [place] [phone] Ren Pineda CRNP [address] [place] [address] 06/02/2025 10:00 AM EDT Office Visit Family Medicine [address] [place] [phone] Joann Collier MD [address] [place] [address] [place] [address] 09/11/2025 2:00 PM EST Imaging Radiology [address] [place] [address] Scheduled Procedures Name Priority Associated Diagnoses Date/Ti [...] Depression Screening 09/09/2025 09/09/2024 GFR 01/29/2026 01/29/2025, 0 10/2024, 01/27/2025, Additional history exists Lipid Panel [...] encounter Medical Devices Implanted Type Area Tube Lancer Device Identifier Shelf Expiration Date Model / Serial / Lot Lipiodol Injection - [id number] Implanted:Qty: 1 on 08/02/2023 at [facility] [employer] 04/28/2026 [address]30[address]-115 -[id number] Syr Pf 2ml Embospheres 100-300 - [id number] Implanted:Qty: 1 on 08/02/2023 at [facility] [employer] [id number] 02/26/2026 S220GH / / [id number] Syr Pf 2ml Embospheres 100-300 - [id number] Implanted:Qty: 1 on 04/11/2024 at [facility] [employer] [id number] 12/27/2026 S220GH / / [id number] Lipiodol Injection - [id number] Implanted:Qty: 1 on 04/11/2024 at [facility] [employer] 348[address]-732 1-2 / / Tip Endoprosthesis [id number] - [id number] Implanted:Qty: 1 on 01/27/2025 at [facility] [employer] [id number] 10/11/2027 [id number] / [id number] / [id number] documented as of this encounter Visit Diagnoses Diagnosis Low serum potassium documented in this encounter [...] Advance Directives occurred with: Patient Care Teams Clinical Education Manager Relationship Specialty Start Date End Date Joann Collier MD [address] [place] [address] [place] [phone] PCP - General Family Medicine 12/22/23 documented as of this encounter
--- OUTSIDE RECORDS SUMMARY | 2025-02-07 23:30 | External Medical Summary | Summary of Care ---
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 Please review. Pt preferred pharmacy is [facility], [address] [place] This is cost savings program for the pt. Thank you, Cinthia Dickerson CPhT Customer Security Clerk II [facility] Services ([facility]PS) 02/03/2025,11:54 [...] by office. Name/Company sending fax: Arleen with [employer] What fax is pertaining to: prescription change request Date(s) they sent request: 01/30/2025 Verified fax number they are sending to is correct (Y or N): yes- correct fax number ending in [phone] Callback Number for the clinic to call to verified if fax was received: [phone] and please give reference #: [id number] documented in this encounter Plan of Treatment Upcoming Encounters Date Type Department Care Team (Late st Contact Info) Description 02/04/2025 12:30 PM EDT Office Visit Gastroenterology, [facility] [address] [phone] Ren Pineda CRNP [address] [address] 02/28/2025 11:15 AM EDT Appointment Radiology, [address] [place] [address] 03/10/2025 7:20 AM EDT Office Visit Family Medicine [facility] [place] [place] [phone] Joann Collier MD [address] [place] [address] [place] [address] 03/20/2025 10:30 AM EDT Office Visit Cardiology, [facility] [address] [place] [address] Chino Carrillo PA-C [address] [place] [address] 04/18/2025 10:30 AM EDT Office Visit Gastroenterology, [facility] [address] [place] [phone] Ren Pineda CRNP [address] [place] [address] 06/02/2025 10:00 AM EDT Office Visit Family Medicine [address] [place] [phone] Joann Collier MD [address] [place] [address] [place] [address] 09/11/2025 2:00 PM EST Imaging Radiology [address] [place] [address] Scheduled Procedures Name Priority Associated Diagnoses Date/Ti [...] this encounter Medical Devices Implanted Type Area Pattern Hanger Device Identifier Shelf Expiration Date Model / Serial / Lot Lipiodol Injection - [id number] Implanted:Qty: 1 on 08/02/2023 at [facility] [employer] 04/28/2026 72050-100 -[id number] Syr Pf 2ml Embospheres 100-300 - [id number] Implanted:Qty: 1 on 08/02/2023 at [facility] [employer] [id number] 02/26/2026 S220GH / / [id number] Syr Pf 2ml Embospheres 100-300 - [id number] Implanted:Qty: 1 on 04/11/2024 at [facility] [employer] [id number] 12/27/2026 S220GH / / [id number] Lipiodol Injection - [id number] Implanted:Qty: 1 on 04/11/2024 at [facility] [employer] 23616-792 1-2 / / Tip Endoprosthesis [id number] - [id number] Implanted:Qty: 1 on 01/27/2025 at [facility] [employer] [id number] 10/11/2027 [id number] / [id number] / [id number] documented as of this encounter Visit Diagnoses [...] Directives occurred with: Patient Care Teams Fire Hose Curer Relationship Specialty Start Date End Date Joann Collier MD [address] [place] [address] [place] [phone] PCP - General Family Medicine 12/22/23 documented as of this encounter
--- OUTSIDE RECORDS SUMMARY | 2025-02-07 23:30 | External Medical Summary | Summary of Care ---
Author Name Unknown Organization [facility] Address [address] [place] [address] Phone [phone] Care Team Providers Care Dye Padder Operator Name Role Phone Joann Collier MD Primary Care Provide r Reason for Visit * Reason Onset Date Comments Med Request 01/31/2025 Encounter Details Date Type Department Care Team (Late st Contact Info) Description 01/31/2025 Telephone Family [address] [address] Joann Collier MD [address] [place] [address] [place] [address] Med Request Allergies Active Allergy Reactions Criticality [...] (12/06/2022): admitted [facility], ammonia 110 Nonrheumatic aortic valve stenosis [...] file Not on file 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 Please review. Pt preferred pharmacy is [facility], [address] [place] This is cost savings program for the pt. Thank you, Cinthia Dickerson CPhT Geography Faculty Member II [facility] Clinical Pharmacy Services ([facility]PS) 02/03/2025,11:54 [...] by office. Name/Company sending fax: Arleen with [employer] What fax is pertaining to: prescription change request Date(s) they sent request: 01/30/2025 Verified fax number they are sending to is correct (Y or N): yes- correct fax number ending in [phone] Callback Number for the clinic to call to verified if fax was received: [phone] and please give reference #: [id number] documented in this encounter Plan of Treatment Upcoming Encounters Date Type Department Care Team (Late st Contact Info) Description 02/04/2025 12:30 PM EDT Office Visit Gastroenterology, [facility] [address] [phone] Ren Pineda CRNP [address] [address] 02/28/2025 11:15 AM EDT Appointment Radiology, [address] [place] [address] 03/10/2025 7:20 AM EDT Office Visit Family Medicine [facility] [place] [place] [phone] Joann Collier MD [address] [place] [address] [place] [address] 03/20/2025 10:30 AM EDT Office Visit Cardiology, [facility] [address] [place] [address] Chino Carrillo PA-C [address] [place] [address] 04/18/2025 10:30 AM EDT Office Visit Gastroenterology, [facility] [address] [place] [phone] Ren Pineda CRNP [address] [place] [address] 06/02/2025 10:00 AM EDT Office Visit Family Medicine [address] [place] [phone] Joann Collier MD [address] [place] [address] [place] [address] 09/11/2025 2:00 PM EST Imaging Radiology [address] [place] [address] Scheduled Procedures Name Priority Associated Diagnoses Date/Ti [...] this encounter Medical Devices Implanted Type Area Lan Support Specialist Device Identifier Shelf Expiration Date Model / Serial / Lot Lipiodol Injection - [id number] Implanted:Qty: 1 on 08/02/2023 at [facility] [employer] 04/28/2026 08743-610 -[id number] Syr Pf 2ml Embospheres 100-300 - [id number] Implanted:Qty: 1 on 08/02/2023 at [facility] [employer] [id number] 02/26/2026 S220GH / / [id number] Syr Pf 2ml Embospheres 100-300 - [id number] Implanted:Qty: 1 on 04/11/2024 at [facility] [employer] [id number] 12/27/2026 S220GH / / [id number] Lipiodol Injection - [id number] Implanted:Qty: 1 on 04/11/2024 at [facility] [employer] 22210-374 1-2 / / Tip Endoprosthesis [id number] - [id number] Implanted:Qty: 1 on 01/27/2025 at [facility] [employer] [id number] 10/11/2027 [id number] / [id number] / [id number] documented as of this encounter Visit Diagnoses [...] Advance Directives occurred with: Patient Care Teams Dye Padder Operator Relationship Specialty Start Date End Date Joann Collier MD [address] [place] [address] [place] [phone] PCP - General Family Medicine 12/22/23 documented as of this encounter
--- OUTSIDE RECORDS SUMMARY | 2025-02-07 23:30 | External Medical Summary | Summary of Care ---
Author Name Unknown Organization [facility] Address [address] [place] [facility] [place] [address] Phone [phone] Care Team Providers Care Time Buyer Name Role Phone Krystian Palomo MD Primary Care Provide r Reason for Visit * Reason Onset Date Comments Medication Pre-auth 02/04/2025 Encounter Details Date Type Department Care Team (Late st Contact Info) Description 02/04/2025 Telephone Gastroenterology, [facility] [address] [place] [address] Ren Pineda CRNP [address] [place] [address] Medication Pre-auth Allergies Active Allergy Reactions Criticality [...] file Not on file 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 Thank you, Alexandrea Wilson CPhT Wind Plant Manager II Centralized Clinical Pharmacy Services ([facility]PS) 02/04/2025,1:48 PM * Telephone Encounter - Linda Manuel CMA - 02/04/2025 11:16 AM EDT Gastro Pre-Cert Request Specialty Medication: No. 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 Site of care: Self-administered - route pre-cert request to [id number] Office Information: Prescriber: Ren BALDERRAMA documented in this encounter Plan of Treatment Upcoming Encounters Date Type Department Care Team (Late st Contact Info) Description 02/28/2025 11:15 AM EDT Appointment Radiology, [address] [place] [address] 03/10/2025 7:20 AM EDT Office Visit Family Medicine [address] [place] [phone] Krystian Palomo MD [address] [place] [address] [place] [address] 03/20/2025 10:30 AM EDT Office Visit Cardiology, [facility] [address] [place] [phone] Chino Carrillo PAAlysonC [address] [place] [address] 04/02/2025 2:00 PM EDT Office Visit Gastroenterology, [facility] [address] [place] [phone] Ren Pineda CRNP [address] [place] [address] 04/18/2025 10:30 AM EDT Office Visit Gastroenterology, [facility] [address] [place] [phone] Ren Pineda CRNP [address] [place] [address] 06/02/2025 10:00 AM EDT Office Visit Family Medicine [address] [place] [phone] Krystian Palomo MD [address] [place] [address] [place] [address] 09/11/2025 2:00 PM EST Imaging Radiology [address] [place] [address] Scheduled Procedures Name Priority Associated Diagnoses Date/Ti [...] this encounter Medical Devices Implanted Type Area Flamer Sealer Device Identifier Shelf Expiration Date Model / Serial / Lot Lipiodol Injection - [id number] Implanted:Qty: 1 [facility]20[facility] 04/28/2026 50460-448 [id number] Syr Pf 2ml Embospheres 100-300 - [id number] Implanted:Qty: 1 on 08/02/2023 at [facility] [employer] [id number] 02/26/2026 S220GH / / [id number] Syr Pf 2ml Embospheres 100-300 - [id number] Implanted:Qty: 1 on 04/11/2024 at [facility] [employer] [id number] 12/27/2026 S220GH / / [id number] Lipiodol Injection - [id number] Implanted:Qty: 1 on 04/11/2024 at [facility] [employer] 31045-145 -2 / Tip Endoprosthesis [id number] - [id number] Implanted:Qty: 1 on 01/27/2025 at [facility] [employer] [id number] 10/11/2027 [id number] / [id number] / [id number] documented as of this encounter Advance Directives [...] Advance Directives occurred with: Patient Care Teams Time Buyer Relationship Specialty Start Date End Date Krystian Palomo MD [address] [place] [address] [place] [address] PCP - General Family Medicine 12/22/23 documented as of this encounter
--- OUTSIDE RECORDS SUMMARY | 2025-02-07 23:30 | External Medical Summary | Summary of Care ---
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 [...] 25 Active Lactulose 10 GM/15ML Oral Solution (Constulose)Indica [...] 2 Tablets before bedtime. 12/10/19 25 Active Pantoprazole Sodium 40 MG Oral [...] the morning. 30 Tablet 01/30/20 25 Active Vitamin E 100 UNIT Oral Capsule Take 1 Capsule by mouth in the morning. 30 Capsule 01/30/20 25 Active Midodrine HCl 5 MG Oral Tablet (Proamatine) Take 3 Tablets by mouth in the morning and 3 Tablets at noon and 3 Tablets in the evening. 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) TAKE ONE TABLET BY MOUTH EVERY MORNING AND ONE TABLET AT BEDTIME 60 Tablet 12 07/04/20 24 2024 Discontinued documented as of this encounter (statuses as of 02/01/2025) Active Problems Problem Noted Date Diagnosed Date [...] 07/05/2023 Hepatic encephalopathy 03/28/2022 Overview (12/06/2022): admitted [facility], ammonia 110 Nonrheumatic aortic valve stenosis 01/21/2022 [...] as of this encounter (statuses as of 02/01/2025) Resolved Problems Problem Noted Date Diagnosed Date [...] as of this encounter (statuses as of 02/01/2025) Immunizations Name Administration Dates Next Due COVID-19 [...] = 0.6 oz pur e alcohol) quit "" PHQ-2 Answer Date Recorded PHQ Adult Total [...] file Not on file 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 Not on file Not [...] encounter Miscellaneous Notes * Telephone Encounter - Scarlett Florentino RP - 02/01/2025 9:49 AM EDTSigned Prescriptions: Disp Refills rifAXIMin 550 MG Oral Tablet (Xifaxan) 60 Tab*4 Sig: TAKE ONE TABLET BY MOUTH EVERY MORNING AND ONE TABLET AT BEDTIMEAuthorizing Provider: RNE PINEDA User: SCARLETT FLORENTINO * Telephone Encounter - Scarlett Florentino RP - 02/01/2025 9:46 AM EDT Refills rerouted to [facility] per pt request in other encounter Scarlett Moore, PharmD Clinical Pharmacist [facility] Services ([facility]PS) [phone] 02/01/2025,9:48 AM documented in this encounter Plan of Treatment Upcoming Encounters Date Type Department Care Team (Late st Contact Info) Description 02/04/2025 12:30 PM EDT Office Visit Gastroenterology, [facility] [address] [phone] Ren Pineda CRNP [address] [address] 03/10/2025 7:20 AM EDT Office Visit [address] [phone] Krystian Palomo MD [address] [place] [address] [place] [address] 03/20/2025 10:30 AM EDT Office Visit Cardiology, [facility] [address] [place] [address] Chino Carrillo PA-C [address] [place] [address] 04/18/2025 10:30 AM EDT Office Visit Gastroenterology, [facility] [address] [place] [phone] Ren Pineda CRNP [address] [place] [address] 06/02/2025 10:00 AM EDT Office Visit Family Medicine [address] [place] [address] Krystian Palomo MD [address] [place] [address] [place] [address] 09/11/2025 2:00 PM EST Imaging Radiology [address] [place] [address] Scheduled Procedures Name Priority Associated Diagnoses Date/Ti [...] this encounter Medical Devices Implanted Type Area Change Director Device Identifier Shelf Expiration Date Model / Serial / Lot Lipiodol Injection - [id number] Implanted:Qty: 1 on 08/02/2023 at [facility] [employer] 04/28/2026 14927-693 1-2 / \\[id number] Syr Pf 2ml Embospheres 100-300 - [id number] Implanted:Qty: 1 on 08/02/2023 at [facility] [employer] [id number] 02/26/2026 S220GH / / [id number] Syr Pf 2ml Embospheres 100-300 - [id number] Implanted:Qty: 1 on 04/11/2024 at [facility] [employer] [id number] 12/27/2026 S220GH / / [id number] Lipiodol Injection - [id number] Implanted:Qty: 1 on 04/11/2024 at [facility] [employer] 79497-661 1-2 / / Tip Endoprosthesis [id number] - [id number] Implanted:Qty: 1 on 01/27/2025 at [facility] [employer] [id number] 10/11/2027 [id number] / [id number] / [id number] documented as of this encounter Visit Diagnoses [...] Advance Directives occurred with: Patient Care Teams Waste Machine Operator Relationship Specialty Start Date End Date Krystian Palomo MD [address] [place] [address] [place] [address] PCP - General Family Medicine 12/22/23 documented as of this encounter
--- OUTSIDE RECORDS SUMMARY | 2025-02-07 23:30 | External Medical Summary | Summary of Care ---
Author Name Unknown Organization [facility] Address [address] [place] [address] Phone [phone] Care Team Providers Care Devops Solutions Architect Name Role Phone Krystian Palomo MD Primary Care Provide r Reason for Visit * Reason Onset Date Comments Medication Refill 02/02/2025 Encounter Details Date Type Department Care Team (Late st Contact Info) Description 02/02/2025 Refill Family [address] [phone] Krystian Palomo MD [address] [place] [address] [place] [address] Allergies Active Allergy Reactions Criticality Noted Date Comments Aspirin 01/28/2022 Other reaction(s): bloody nose Salicylates 08/08/2001 nose bleeds documented as of this encounter (statuses as of 02/02/2025) Medications Multivitamin Adult Oral Tablet daily . [...] the evening. 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) TAKE ONE TABLET BY MOUTH EVERY MORNING AND ONE TABLET AT BEDTIME 60 Tablet 4 5 Active documented as of this encounter (statuses as of 02/02/2025) Active Problems Problem Noted Date Diagnosed Date [...] admitted [facility], ammonia 110 Nonrheumatic aortic valve stenosis 01/21/2022 [...] as of this encounter (statuses as of 02/02/2025) Resolved Problems Problem Noted Date Diagnosed Date [...] as of this encounter (statuses as of 02/02/2025) Immunizations Name Administration Dates Next Due COVID-19 [...] file Not on file Not on file 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 Not on file Not [...] encounter Miscellaneous Notes * Telephone Encounter - Mohamud Appiah - 02/02/2025 2:59 PM EDTRefused Prescriptions: Disp Refills Taurine 500 MG Oral Capsule 30 Cap*5 Sig: Take 1,000 mg by mouth in the morning.Refused By: Lorena APPIAH for Refusal: Duplicate Request documented in this encounter Plan of Treatment Upcoming Encounters Date Type Department Care Team (Late st Contact Info) Description 02/04/2025 12:30 PM EDT Office Visit Gastroenterology, [facility] [address] [phone] Ren Pineda CRNP [address] [place] [address] 03/10/2025 7:20 AM EDT Office [address] [phone] Krystian Palomo MD [address] [place] [address] [place] [address] 03/20/2025 10:30 AM EDT Office Visit Cardiology, [facility] [address] [place] [address] Chino Carrillo PA-C [address] [place] [address] 04/18/2025 10:30 AM EDT Office Visit Gastroenterology, [facility] [address] [phone] Ren Pineda CRNP [address] [place] [address] 06/02/2025 10:00 AM EDT Office Visit Family Medicine [address] [place] [address] Krystian Palomo MD [address] [place] [address] [place] [address] 09/11/2025 2:00 PM EST Imaging Radiology [address] [place] [address] Scheduled Procedures Name Priority Associated Diagnoses Date/Ti [...] this encounter Medical Devices Implanted Type Area Packaging Tech Device Identifier Shelf Expiration Date Model / Serial / Lot Lipiodol Injection - [id number] Implanted:Qty: [facility] 04/28/2026 74745-868 1-2 / / [id number] Syr Pf 2ml Embospheres 100-300 - [id number] Implanted:Qty: [facility] [id number] 02/26/2026 S220GH / / [id number] Syr Pf 2ml Embospheres 100-300 - [id number] Implanted:Qty: [facility] [employer] [id number] 12/27/2026 S220GH / / [id number] Lipiodol Injection - [id number] Implanted:Qty: 1 on 04/11/2024 at [facility] [employer] 07907-249 1-2 / / Tip Endoprosthesis [id number] - [id number] Implanted:Qty: 1 on 01/27/[address] [facility] [employer] [id number] 10/11/2027 [id number] / [id number] documented as of this encounter Advance Directives [...] Advance Directives occurred with: Patient Care Teams Devops Solutions Architect Relationship Specialty Start Date End Date Krystian Palomo MD [address] [place] [address] [place] [phone] PCP - General Family Medicine 12/22/23 documented as of this encounter
--- OUTSIDE RECORDS SUMMARY | 2025-02-07 23:31 | External Medical Summary | Summary of Care ---
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 Name Role Phone Krystian Palomo MD Primary Care Provide r Reason for Referral * Evaluate & Treat - Unlimited Visits (Within 10 days (routine)) - Pending Review Specialty Diagnoses / Procedures Referred By Contac t Referred To Contact Gastroenterology Diagnoses S/P TIPS (transjugular intrahepatic portosystemic shunt) Stephanie Brenner DO [address] [address] Phone: tel: fax: Referral ID Status Reason Start Date Expiration Date Visits Requested Visits Authorized [id number] Pending Review Specialty Services Required 01/29/2025 999 999 Question Answer Referral Priority Within 10 days (routine) Where should this appointment be scheduled? [facility] For what condition is the patient being referred? Liver conditions Comments [facility] cirrhosis s/p TIPS continuing transplant workup Discharge Order * Ancillary Services (Within 30 days (routine)) - Pending Review Specialty Diagnoses / Procedures Referred By Contact Referred To Contact Interventional Radiology / Radiology Diagnoses S/P TIPS (transjugular intrahepatic portosystemic shunt) Stephanie Brenenr DO [address] [address] Phone: tel:[phone] fax:[phone] Referral ID Status Reason Start Date Expiration Date Visits Requested Visits Authorized [id number] Pending Review Ancillary Services Required 01/29/2025 999 999 Question Answer Referral Priority Within 30 days (routine) Where should this appointment be scheduled? [facility] Where Will The Procedure Be Performed? 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) Procedures IR VENOUS TIPS Ren Pineda CRNP [address] [place] [address] Phone: tel: fax: Referral ID Status Reason Start Date Expiration Date V isits Requested Visits Authorized [id number] Pending Review 01/24/2025 999 999 Reason for Visit * Auth/Cert Specialty Diagnoses / Procedures Referred By Liliana harley Referred To Contact Diagnoses Ascites Ascites Stanford Heath DO [address] [place] [address] Phone: tel: fax: Admissions, [facility] [address] [place] [address] Referral ID Status Reason Start Date Expiration Date Visits Re quested Visits Authorized [id number] Encounter Details Date Type Department Care Team (Latest Contact Info) Description 01/14/2025 8:12 PM EDT - 01/29/2025 2:50 PM EDT Hospital Encounter Advanced Acute Care Medical/Transplant Unit, [facility] 3rd Floor [address] [place] [address] Stanford Heath DO [address] [place] [address] Sammy Martinez MD [address] [facility] [place] [address] Issac Craig MD [address] [place] [address] Rachel Hallman MD [address] [place] [address] Gume Oleary MD [address], [place] [id number] Diagnostic Clarification Discharge Disposition: Home - Self Care Allergies Active Allergy Reactions Criticality Noted Date Comments Aspirin 01/28/2022 Other reaction(s): bloody nose Salicylates 08/08/2001 nose bleeds documented as of this encounter (statuses as of 01/30/2025) Medications Multivitamin Adult Oral Tablet daily . [...] bedtime. Active rifAXIMin 550 MG Oral Tablet (Xifaxan)Indicatio [...] morning. 30 Capsule 5 01/30/20 25 Active Midodrine HCl 2.5 MG Oral Tablet (Proamatine) Take 3 Tablets by mouth in the morning and 3 Tablets at noon and 3 Tablets in the evening. 09/04/20 24 2024 Discontinued Torsemide 20 MG Oral Tablet (Demadex) Take 1 Tablet by mouth in the morning. 2024 Discontinued Nadolol 40 MG Oral Tablet (Corgard) Take 0.25 Tablets by mouth in the morning. 01/02/20 25 2024 Discontinued documented as of this encounter (statuses as of 01/30/2025) Active Problems Problem Noted Date Diagnosed Date [...] Hepatic encephalopathy 03/28/2022 Overview (12/06/2022): admitted [facility], ammonia 110 Nonrheumatic aortic valve stenosis 01/21/2022 [...] as of this encounter (statuses as of 01/30/2025) Resolved Problems Problem Noted Date Diagnosed Date [...] as of this encounter (statuses as of 01/30/2025) Immunizations Name Administration Dates Next Due COVID-19 [...] file Not on file Not on file [employer] Not on file Not on file Not on file documented as of this encounter Last Filed Vital Signs Vital Sign Reading Time Taken Comments Blood Pressure 96/63 01/29/2025 10:00 AM EDT Pulse 99 01/29/2025 10:00 AM EDT Temperature 36 °C (96.8 °F) 01/29/2025 10:00 AM EDT Respiratory Rate 16 01/29/2025 10:00 AM EDT Oxygen Saturation 99% 01/29/2025 10:00 AM EDT Inhaled Oxygen Concentration - - Weight 107 kg (235 lb 14.3 oz) 01/29/2025 1:44 A M EDT Height 177.8 cm (5' 10") 01/14/2025 8:14 PM EDT Body Mass Index 33.85 01/14/2025 8:14 PM EDT documented in this encounter Functional Status * [...] Daria Boucher RN documented in this encounter Discharge Summaries * Stephanie Brenner, DO - 01/29/2025 2:50 PM EDT [address] [address] Admission Date: 01/14/2025 Discharge Date: 01/29/2025 RECOMMENDED TO DO FOR NEXT PROVIDER(S): Ensure follow- up with hepatology for continuing transplant evaluation (referral placed) Ensure dentistry follow-up (per pt he is established at [facility]) Ensure doppler study in one month (ordered) to reevaluate tips Repeat cmp REASON(S) FOR MEDICATION CHANGE(S): Midodrine was increased to 15mg TID for blood pressure Torsemide was decreased to 10mg daily Spironolactone was increased to 50mg daily Ciprofloxacin 500mg daily for SBP prophylaxis Vitamin E and taurine were started Nadolol was stopped due to decompensated cirrhosis DISPOSITION ON DISCHARGE: Home - Self [facility] Active Hospital Problems Diagnosis S/P TIPS (transjugular intrahepatic portosystemic shunt) Pre-transplant evaluation for chronic liver disease Hepatocellular carcinoma (HCC) Umbilical hernia Chronic hyponatremia Cirrhosis of liver with ascites (HCC) Nonrheumatic aortic valve stenosis Thrombocytopenia (HCC) Type 2 diabetes mellitus with hemoglobin A1c goal of less than 7.0% (HCC) Resolved Hospital Problems Diagnosis Date Resolved *Principal Diagnosis - Decompensated hepatic cirrhosis (HCC) 01/29/2025 Recurrent pleural effusion on left 01/29/2025 Ascites 01/29/2025 ADMISSION HISTORY & PHYSICAL EXAM (focused): Per. Dr. Reagan Baird 59 yo male with pmhx of liver cirrohsis 2/2 GONZALES, htn,hld, t2d, diverticulosis, aortic stenosis, hepatic encephalopathy, ascites, HCC s/p TACE, presenting as a transfer from [facility] for evaluationfor TIPS procedure. Patient was having IR paracentesis procedure done 01/13(had 7L fluid taken off), and was having significant fatigue and lethargy during this. Due to this, as well as labs he had done while getting paracentesis which showed a low hgb (per his report), he was told to present to [facility] ED. In the ED, he was found to have hgb of 6.3, CXR showing left sided lower rib fractures, complete opacification of the left hemithorax. CT chest shows increased size of large left pleural effusion with complete collapse of left lung. Chest tube placed. Patient also was given 1 unit pRBCs. GI team saw patient during the admission as did pulmonology. GI recommended that patient be evaluated for a TIPS procedure in the setting of having increased need /frequency of paracenteses recently. Patient reports that he was having paracentesis initially every 14 days, then every 10 days, now isgetting it every 5 days. Patient is reporting some pain on his L side. CXR as above did show broken ribs, he has had multiple falls recently per his history and the history reported in the [facility] notes. Rib fractures were just being managed with pain medicine at [facility]. Fluid studies from thoracentesis are as follows (only paper records are available from [facility]): PH: 7.58 Pleural color: yellow, cloudy, WBC 1404 RBC 5000 Pleural LDH 69, serum LDH 210 Pleural glucose 125 Gram stain: no organisms seen Lives at home with his mother and brother. Mom is 91, brother is in wheelchair. For 2 weeks patienthas been having trouble getting around at home d/t soreness in leg/hip/ ribs. Started using walker.Brother helps him organize his medications. Snow/Leoncio his sister in law and brother respectivelywould be medical decision maker if needed. He reports that he wants to be full code at this time. He has a 10 pack year smoking history, he denies hx of alcohol or drug use BP 105/66, HR 100s on arrival, afebrile Labs done here: UA non infectious INR 2.0 BMP: hyponatremia with Na 125, calcium low at 7.9 Hepatic function panel: albumin low 2.5, AST 51, Alk phosph elevated 148, bilirubin total 2.1, protein 5.1 CBC: no leukocytosis, hgb 8 General: He is not in acute distress. HENT: Head: Normocephalic and atraumatic. Mouth/Throat: Mouth: Mucous membranes are moist. Eyes: General: Right eye: No discharge. Left eye: No discharge. Conjunctiva/sclera: Conjunctivae normal. Cardiovascular: Rate and Rhythm: Normal rate and regular rhythm. Pulses: Normal pulses. Comments: Systolic murmur present Pulmonary: Effort: Pulmonary effort is normal. No respiratory distress. Breath sounds: Normal breath sounds. No wheezing. Comments: Chest tube present on L side, draining yellowish clear fluid Abdominal: General: Bowel sounds are normal. There is distension. Palpations: Abdomen is soft. There is no mass. Tenderness: There is no abdominal tenderness. Musculoskeletal: Comments: +2 pitting edema present bilaterally Skin: Findings: No rash. Neurological: Mental Status: He is alert. Psychiatric: Mood and Affect: Mood normal. Behavior: Behavior normal. Thought Content: Thought content normal. HOSPITAL COURSE (focused): Patient was transferred to [facility] in the setting of decompensated cirrhosis with significant ascites, L pleural effusion s/p L chest tube placement. Fluid studies from paracentesis at [facility] suggestive of SBP. Patient was treated with Ceftriaxone 2g Q24 hours x5 days. He was then started on ciprofloxacin 500mg daily for SBP prophylaxis. Patient was evaluated by hepatology and transplantsurgery team for possible TIPS->Transplant. Chest tube was removed by thoracic surgery. Patient tolerated this well. He underwent therapeutic paracentesis on 01/17/25. His diuretic regimen was uptitrated slowly to torsemide 10mg daily and spironolactone 50mg daily. Patient tolerated this well. His midodrine was increased to 15mg TID. He underwent TIPS on 01/27/25 without any major complication. He had improvement to his hemodynamics post-tips. He felt well and was ambulating. His labs were stable. He was stable for discharge home on 01/29/25 which he was in agreement with. Day of Discharge Physical Exam General: Chronically ill appearing middle aged male laying in the bed in no acute distress HEENT: mucous membranes pink and moist CV: regular rate and rhythm, murmur noted Resp: clear to auscultation no wheezes, no rhonchi, no rales Abdomen: distended but soft, no tenderness to palpation all four quadrants Extremities: no edema BLE Skin: warm and dry Neuro: awake, alert, oriented, moves all extremities in the bed, follows commands Psych: appropriate affect Operations & Procedures: therapeutic paracentesis , TIPS Complications: none significant Significant Lab and Imaging Results: As mentioned above Results Pending at Discharge: Lab Results Pending at Discharge: Type and Screen Routine CBC Routine PT INR Routine COMPREHENSIVE METABOLIC PANEL Routine MEDICATION UPDATES AT DISCHARGE START taking these medications INSTRUCTIONS ciprofloxacin 500 MG Tablet Commonly known as: Cipro Take 1 Tablet by mouth in the morning. Spironolactone 50 MG Tablet Commonly known as: Aldactone Take 1 Tablet by mouth in the morning. Taurine 500 MG Caps Take 1,000 mg by mouth in the morning. Vitamin E 100 UNIT Capsule Take 1 Capsule by mouth in the morning. CHANGE how you take these medications INSTRUCTIONS Torsemide 10 MG Tablet Commonly known as: Demadex What changed: medication strength how much to take Take 1 Tablet by mouth in the morning. CONTINUE taking these medications INSTRUCTIONS Allopurinol 300 [...] 1 Tablet by mouth in the morning. Multivitamin Adult Tabs daily . mupirocin calcium 2 % ointment Commonly known as: Bactroban Apply topically to affected area 3 times a day. At hospital discharge [facility] Generic drug: Glucose Blood Use to check blood sugars up to three times daily DxE11.9 pantoprazole 40 MG Tbec Commonly known as: Protonix Take 1 Tablet by mouth in the morning and 1 Tablet before bedtime. potassium chloride ER 10 MEQ Tbcr Take 2 Tablets by mouth in the morning and 2 Tablets before bedtime. Probiotic & [...] TAKE ONE CAPSULE BY MOUTH EVERY DAY Vitamin C 1000 MG Tablet daily . STOP taking these medications Nadolol 40 MG Tablet Commonly known as: Corgard SCHEDULED FOLLOW-UP: Future Appointments Appt Date/Time Provider Department 02/04/2025 12:30 PM Ren Pineda CRNP Gastroenterology, [facility] 03/10/2025 7:20 AM Krystian Palomo MD [facility] 03/20/2025 10:30 AM Chino Carrillo PA-C Cardiology, [facility] 04/18/2025 10:30 AM Ren Pineda CRNP Gastroenterology, [facility] 06/02/2025 10:00 AM Krystian Palomo MD [facility] 09/11/2025 2:00 PM US1 DERBY Radiology [facility] Outpatient Follow Up Comprehensive Metabolic Panel HEPATOLOGY REFERRAL OP INTERVENTIONAL RADIOLOGY REFERRAL OP US Abdomen Doppler Complete Other Information Indwelling Devices: LINES None Vital Signs (last recorded): Most Recent Systolic BP: 96 mmHg (01/29/25 1000) Most Recent Diastolic BP: 63 mmHg (01/29/25 1000) Pulse: 99 (01/29/25 1000) Resp: 16 (01/29/25 1000) Most Recent Temperature: 36 C (01/29/25 1000) Weight: 107 kg (235 lb 14.3 oz) (01/29/25 0144) SpO2: 99 % (01/29/25 1000) O2 flow rate: 8 L/MIN (01/27/25 1215) Allergies: Aspirin and Salicylates Activity: as tolerated Diet: 1.5L fluid restriction Code Status: Full Code Condition on Discharge: stable Isolation status: None Cognition: normal HOSPITAL CONSULTS ORDERED: HEPATOLOGY CONSULT IP THORACIC SURGERY CONSULT IP ADULT PHYSICAL THERAPY CONSULT IP ADULT OCCUPATIONAL THERAPY CONSULT IP TRANSPLANT SERVICE CONSULT IP CARDIOLOGY CONSULT IP DENTISTRY CONSULT IP GENERAL SURGERY CONSULT IP REFERRING PHYSICIAN: REF: BENJAMIN SONI PRIMARY CARE PROVIDER: PCP: Krystian Palomo MD [address] [place] [address] / [place] [phone] (office) [phone] (fax) Note: To contact a physician responsible for this patient’s hospital care, please call [employer] [phone]. Cosigned by Rachel Hallman MD at 01/29/2025 4:51 PM EDT Associated attestation - Rachel Hallman MD - 01/29/2025 4:51 PM EDT I saw and evaluated the patient today. I have reviewed the resident/fellow physician note and agree. I spent a total of 35 minutes coordinating, documenting, and providing care for this patient excluding time spent in the performance of separately billed services or time spent by another provider/QHP. documented in this encounter Discharge Instructions * Discharge Instr - AVS* Stephanie Brenner DO - 01/17/2025 10:59 PM EDT Discharge Date: 01/29/25 The information below provides you with the instructions and the list of medications you need to betaking following discharge from the hospital. If you have any questions, please ask before leaving. If you have questions after leaving, you can reach us at the numbers below. YOUR HOSPITAL PROVIDERS: Discharging Provider: Rachel Hallman MD Provider Department: Hospital Medicine To reach this Provider Monday through Monday (8:00 AM to 4:30 PM) for any questions or test results: Call [phone] For after-hours concerns: Call [phone] and have your provider paged, or the provider senior radiation protection technician for the Department of Hospital Medicine paged. [...] available, you can go to your local [facility] or Ur[facility] Care Clinic during their business hours. In an EMERGENCY situation: Call 911 or go to the nearest emergency room. A BRIEF SUMMARY OF YOUR HOSPITAL STAY: You came to the hospital with: After chest tube placement and paracentesis at [facility]. You saw the thoracic surgeons who removed your chest tube with no complication. You underwent transplant/TIPS workups by transplant surgery team and hepatology. You underwent paracentesis on 01/17/25. You weretreated for bacteria in your abdomen with antibiotics through the IV and then started on antibiotics by mouth to prevent recurrent infection. Your lactulose was increased. Your diuretics were slowly increased. You underwent TIPS on 01/27/2025. You tolerated this well and were stable for discharge home with outpatient followup with hepatology, IR, and your PCP. You were seen by surgery who advised you to leave the sutures in your skin until they fall out naturally. Your main diagnosis at discharge was: decompensated cirrhosis, spontaneous bacterial peritonitis, pleural effusion Operations & Procedures performed: paracentesis, TIPS Complications: none significant Inpatient test results that are pending at discharge: none Advance Directive Documented: Advance Directive Does the Patient have an Advance Directive? No YOUR FOLLOW UP APPOINTMENTS: Primary Care Provider Information: PCP: Krystian Palomo MD [address] [place] [address] / [place] [phone] (office) [phone] (fax) An appointment was requested with your PCP (Krystian Palomo MD) within 7 days. (Please take this form to this visit with your primary care physician.) A referral to hepatology was provided to you. A referral to IR for follow up in one month was provided. You need the following studies in the future: repeat labs in one month and doppler abdomen ultrasound in one month INSTRUCTIONS: Diet: Normal diet, Fluid restriction - 1.5L Activity: No strenuous activity for 24 hours and No lifting or pushing or pulling more than 10 lbs for 3 days Additional Instructions: - Call your primary care physician or seek medical attention if you develop fevers, chills, worsening shortness of breath, chest pain, abdominal pain, confusion. MEDICATION CHANGES ON DISCHARGE Start taking: spironolactone 50mg daily (this help keeps the fluid from building up) Torsemide 10mg daily (also keeps the fluid from building up) Ciprofloxacin 500mg daily (this is to prevent infection in the fluid in your belly) Branch chain amino acids. This can be bought through [employer]. It is not a prescription medication. Continue taking your lactulose. Increase your dose as needed for 3-5 soft bowel movements per day. STOP taking: Nadolol Interventional Radiology Discharge Instructions Procedure Date: 01/27/2025 Provider: Dr. Charles Padgett If you are experiencing any problems related to your procedure, please contact Interventional Radiology at [phone] during normal business hours: Monday - Monday, 8:00 am - 4:00 pm. If a problem occurs outside of normal business hours, please call the hospital bench assembler operator at [phone] and ask for the Interventional Radiologist senior radiation protection technician. Contact scheduling for Interventional Radiology at [phone] during normal business hours: Monday - Monday, [...] us at the numbers above. SPECIAL INSTRUCTIONS Trans-Jugular Intrahepatic Portosystemic Shunt (TIPS) A Trans-jugular intrahepatic portosystemic shunt (TIPS) is a percutaneously created connection within the liver between the portal and systemic circulations. A TIPS is placed to reduce protal pressure in patients with complications related to portal hypertension. The goal of TIPS placement is to divert portal blood flow into the hepatic vein, so as to reduce the pressure gradient between portal and systemic circulations. Shunt patency is maintained by placing an expandable metal stent across the intrahepatic tract. This procedure is usually done under general anesthesia and you are being discharged from the hospital as you have recovered from the procedure and aftereffects of anesthesia. Home Care Avoid strenuous activity for 24 to 48 hours after your procedure. Limit bending at the waist for 2 days after the procedure. Do not lift anything heavier than 10 pounds for 3 days after your procedure. Gradually increase your activity after 3 days. Keep the dressing clean, dry and intact for 24 hrs, change dressing as needed. Dressings may be completely removed in 3 days. You may shower after 24 hours. Gently wash the area and pat it dry. Please DO NOT take a bath, soak in a hot tub, or swim until the wound is completely healed. In the first 48 hours, if you feel like you are going to cough, sneeze, or have a bowel movement, press gently on your incision site. Drink plenty of fluids, unless your doctor tells you otherwise. This will help flush the dye used during the procedure out of your body. If your incision starts to bleed or swell (access site - neck), sit upright and have someone apply pressure to the incision site for 15 minutes. After the bleeding has stopped, continue to sit upright for an hour and contact Interventional Radiology. If the bleeding does not stop after 15 minutes, call 911 for emergency assistance or go to the closest Emergency Department. Follow Up Your interventional radiologist will schedule you for a clinic visit in approximately 2 - 3 weeks. The schedulers will call you with an appointment date/time. You will have an ultrasound doppler and liver function blood work before you see the Interventional Radiologist in clinic. For questions regarding this appointment, please call our schedulers at [phone]. When to Call Interventional Radiology Call Interventional Radiology right away if you have any of the following: Fever above 100 degrees Fahrenheit Increased bleeding, redness, swelling, warmth, or discharge at the incision site. Constant or increasing pain, numbness, coldness, or tingling around the incision area. Vomiting or nausea that does not go away Blood in your urine, black or tarry stools If at any time you feel you have a medical emergency, call 911 for emergency assistance. Symptoms may include: Chest Pain Sudden, severe shortness of breath Rapid heart rate Altered mental status Sudden onset of weakness See your referring physician for follow-up appointment. Do not smoke or use tobacco products in any way! If you feel suicidal or homicidal, please call the crisis hotline at [phone] ([phone]) documented in this encounter Progress Notes * Dony Hansen MD - 01/29/2025 8:25 AM EDT Images from the original note were not included. PROGRESS NOTE - Hepatology Service [address] [address] Name: Satish Spencer Location: [facility] B331/A Date: 01/29/2025 Time: 8:25 AM SUBJECTIVE: The patient was seen and examined, chart reviewed. No acute events overnight. Patient denies any confusion, abdominal pain, nausea, vomiting, tolerating diet ROS: As above otherwise negative OBJECTIVE: Vital Signs Last 24 Hours: Systolic BP: Most Recent Systolic BP Av.2 mmHg Min: 99 mmHg Max: 104 mmHg Temperature: Most Recent Temperature Av.5 C Min: 36.28 C Max: 36.78 C Pulse: Pulse Av.2 Min: 89 Max: 100 Respirations: Resp Av.3 Min: 16 Max: 18 SpO2: SpO2 Av.5 % Min: 98 % Max: 100 % General: Resting in bed, in no acute distress Eyes: No conjunctival icterus, conjunctiva non-injected Oropharynx: Moist mucus membranes, no erythema Lungs: No respiratory distress Heart: Physiologic rate and rhythm Abdomen: Abdomen is distended, but otherwise soft and grossly nontender to palpation : Deferred Extremities: No edema Neuro: No focal deficits LABS: Labs reviewed as indicated below: Lab results within last 7 days (see chart for full results) Units 01/29/25 0637 01/28/25 0646 01/27/25 0643 Protein g/dL 4.8* 5.1* 5.0* Bilirubin, Total mg/dL 2.6* 3.1* 1.8* Alkaline Phosphatase U/L 284* 281* 230* AST U/L 87* 88* 65* ALT U/L 44 45 37 Lab results within last 7 days (see chart for full results) Units 01/29/25 0637 01/28/25 0646 01/27/25 0643 HGB g/dL 8.2* 8.8* 8.1* HCT % 24.8* 26.3* 24.3* WBC K/uL 7.49 5.84 3.73* PLT K/uL 70* 58* 54* MELD 3.0: 25 at 01/29/2025 6:37 AM Calculated from: Serum Creatinine: 1.2 mg/dL at 01/29/2025 6:37 AM Serum Sodium: 131 mmol/L at 01/29/2025 6:37 AM Total Bilirubin: 2.6 mg/dL at 01/29/2025 6:37 AM Serum Albumin: 2.2 g/dL at 01/29/2025 6:37 AM INR(ratio): 2.2 at 01/29/2025 6:37 AM Age at listing (hypothetical): 59 years Sex: Male at 01/29/2025 6:37 AM IMAGING: IR VENOUS TIPS Result Date: 01/28/2025 IMPRESSION: Transjugular placement of an intrahepatic portosystemic shunt and paracentesis. PLAN: Return to medical floor for clinical monitoring. Serial liver function and CBCs while patient remainshospitalized. Aggressive diuresis overnight. 1 month follow up with abdominal ultrasound and labs. I have personally reviewed this examination and agree with the resident/fellow physician's interpretation. IMPRESSION: Patient has refractory ascites requiring frequent paracentesis (up to every 5 days). His picayune MELD score is at 16 Meld 3.0 score of 25. Interval repeat TTE continues to show moderate . Patient previously evaluated by transplant and was awaiting further cardiac workup which has been completed. Given his high MELD he would benefit from a transplant evaluation prior to candidacy for TIPS for which transplant surgery consult has been placed. He has had notable decline in functional status with significant frailty which may overall affect his candidacy for transplant. Additionally noted to have peritoneal studies consistent with SBP, started on appropriate abx coverage. After further discussion with Cardiology team, the patient's aortic stenosis does not appear nona a barrier for his TIPS, however, it would likely be too high risk for transplant surgery. However, aortic stenosis is not significant enough and would be too high risk for TAVR at this time. Afterfurther discussion with transplant surgery and Cardiology team, we will plan to move forward with TIPS placement during hospitalization. If patient were to decompensate from liver standpoint following the procedure, Cardiology agreeable to re-evaluate for tips at that time to help optimize the patient for possible transplant. Patient is now s/p successful TIPS procedure 01/27. # Decompensated [facility] cirrhosis MELD 29 ([place] MELD 18) # Refractory Ascites s/p TIPS on 01/27 # HCC ( two lesions in right hepatic lobe 2.8 x 2.4 and 1.1 x 1.2 cm (both LIRADS 5)) s/p bland embolization 08/21 and TACE 05/22 with repeat MRI 10/2024 with residual/recurrent tumor currently on SBRT(12/04 completed) RECOMMENDATIONS/PLAN: - s/p TIPS 01/27, observe patient closely for Hepatic Encephalopathy post procedure. - Avoid B-Blockade - c/w Midodrine 15 TID (MAP goal >75) - c/w Lactulose - titrate to 3-5 liquid loose BM per day - cw Rifaximin 550 BID - c/w guest experience captain Torsemide 10 QD (previously intolerant of Furosemide/Aldactone) - Completed 5 day course CTX, now on cipro 500mg - recommend vitamin E supplementation - recommend taurine 1000 mg on discharge - BCAA supplement on discharge - Daily MELD 3.0 labs - PT/OT and ui application developer following - ok for discharge from hepatology standpoint. I have discussed the case with my attending, Dr Hansen Attending Attestation: I have discussed the patient's management with the medical trainee and agree with the note. Please refer to the documented findings and plan of care. The patient's bedside service today consisted of an evaluation. I was present and confirmed the findings of the history and exam. * Stephanie Brenner DO - 01/28/2025 12:01 PM EDT PROGRESS NOTE - Resident - Medicine [facility] [place] [address] Name: Satish Spencer Location: [facility] [place] B331/A Date: 01/28/2025 Time: 12:01 PM Date of admission: 01/14/2025 Overnight: No acute events. Today: On evaluation this morning patient states that he feels good. Denies fevers, chills, chest pain, shortness of breath, nausea, vomiting. States that the abdominal pain he had last night is resolved. Denies pain, numbness, tingling LUE. He notes zero bowel movements overnight. PHYSICAL EXAMINATION: Most Recent Vital Signs: BP: 101 mmHg/64 mmHg (01/28/25950) Pulse: 93 (01/28/25950) Resp: 16 (01/28/25950) Temp: 36.5 C (01/28/25950) Temp Summary: Temp Min: 34.5 °C (94.1 °F) Max: 36.5 °C (97.7 °F) SpO2: 99 % (01/28/25950) O2 flow rate: 8 L/MIN (01/27/25 1215) Supplemental O2 Delivery: Room Air, None (01/28/25950) Intake/Output: Intake/Output Summary (Last 24 hours) at 01/28/2025 1201 Last data filed at 01/28/2025 0930 Gross per 24 hour Intake 1520 ml Output 1850 ml Net -330 ml Weight: Patient Vitals for the past 72 hrs: Weight 01/28/25 0113 107.6 kg (237 lb 3.4 oz) 01/27/25 0500 103.9 kg (229 lb 0.9 oz) 01/26/25 0500 103.8 kg (228 lb 13.4 oz) 01/26/25 0022 104.9 kg (231 lb 4.2 oz) General: Chronically ill appearing middle aged male laying in the bed in no acute distress watchingvideos on his phone HEENT: mucous membranes pink and moist CV: regular rate and rhythm, murmur noted Resp: clear to auscultation no wheezes, no rhonchi, no rales Abdomen: distended but soft, no tenderness to palpation all four quadrants Extremities: no edema BLE Skin: warm and dry Neuro: awake, alert, oriented, moves all extremities in the bed, follows commands Psych: appropriate affect Peripheral Line Left;Lower Arm 24 Gauge (Active) Number of days: 12 Peripheral Line Right Antecubital 20 Gauge (Active) Number of days: 8 Laboratory Values: reviewed. INR 2.1 PT 23.8 Na 126 K 4.0 CO2 21 Creat 1.3 AST 88 ALT 45 ALP 281 T bili 3.1 from 1.8 yesterday Albumin 2.3 Wbc 5.84, hgb 8.8, hct 26.3, plt 58 MELD 3.0: 29 at 01/28/2025 6:46 AM Calculated from: Serum Creatinine: 1.3 mg/dL at 01/28/2025 6:46 AM Serum Sodium: 126 mmol/L at 01/28/2025 6:46 AM Total Bilirubin: 3.1 mg/dL at 01/28/2025 6:46 AM Serum Albumin: 2.3 g/dL at 01/28/2025 6:46 AM INR(ratio): 2.1 at 01/28/2025 6:46 AM Age at listing (hypothetical): 59 years Sex: Male at 01/28/2025 6:46 AM Radiographic Studies: reviewed. 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 * POA = Present On Admission I have examined the patient and consistent with the dietitian's findings found malnutrition presentof Moderate (01/15/25 1527) degree. This is consistent with such due to Fat loss;Muscle loss;Inadequate energy intake (01/15/25 1527). I have also reviewed and agree with the dietitian's plan of carewhich include Monitored NPO/clear liquid status (01/15/25 1527). Satish Spencer is a 59 year old [facility] cirrhosis, HCC who was transferred from [facility] for evaluation and treatment of SBP, pleural effusion s/p chest tube placement, and ascites requiring increasingly frequent paracentesis. He was transferred for evaluation for possible TIPS. DIFFERENTIAL DIAGNOSIS AND PLAN OF CARE: Decompensated MASH cirrhosis Ascites s/p paracentesis 01/17/2025 SBP-resolved Chronic hyponatremia Chronic Hypotension S/p TIPS Patient with worsening ascites requiring frequent paracentesis. Patient transferred for potential TIPS evaluation. - Hepatology and transplant teams following for transplant candidacy workup. -Patient tolerating uptitration of his diuretic regimen -TIPS by IR yesterday -Will increase lactulose to QID today. Will titrate for goal 5 soft Bms per day. -continue rifaximin 550mg BID -Treatment for SBP with ceftriaxone 2g Q 24 hours x 5 days total has been completed (end date: 01/19/25). -Continue ciprofloxacin 500mg PO daily for prophylaxis of SBP - continue midodrine 15mg TID per hepatology recommendation -Continue torsemide 10mg daily -Will continue spironolactone 50 mg daily -will continue daily fluid restriction to 1500ml -general surgery has evaluated; reports sutures to patient's umbilicus should stay in Acute on Chronic anemia-stable Thrombocytopenia-stable Patient denies bleeding. No evidence of bleeding clinically. - s/p transfusion with 1 u prbcs on 01/21/25 with appropriate response Chronic problems: - BPH: increased guest experience captain flomax to 0.8mg daily given intermittent difficulties voiding - gout: continue guest experience captain allopurinol - GERD: continue guest experience captain omeprazole - HLD: continue guest experience captain atorvastatin - DM: lantus 8 qam, MDSS with meals only, CC 1:15 Diet: Orders Placed This Encounter Procedures Adult Complex Diet : Consistent Carbohydrate - 4 Choices (60 grams) --- Fluid Restriction (ml): 1500 VTE Prophylaxis: Enoxaparin Lines and Tubes: Peripheral Line Left;Lower Arm 24 Gauge (Active) Number of days: 12 Peripheral Line Right Antecubital 20 Gauge (Active) Number of days: 8 PT/OT: consulted Anticipated Date of Discharge: possible 01/29/25 Code Status: Code Status: Full Code Patient discussed with Dr. Craig, attending physician. Cosigned by Issac Craig MD at 01/28/2025 1:36 PM EDT Associated attestation - Issac Craig MD - 01/28/2025 1:36 PM EDT I saw and evaluated the patient today. I have reviewed the resident/fellow physician note and agree. Satish Spencer is a 59 year old male currently admitted to the [facility] Medicine Service for decompensated MASH cirrhosis. He is now status post tips on 01/27/2025. Previously poor tolerance with diuretic regimen of torsemide and spironolactone due to hypotension. Blood pressure muchimproved following tips. No confusion or asterixis suggestive of hepatic encephalopathy on exam today. Titrate lactulose today to encourage 3-4 well formed soft bowel movements per day. Hepatology following. Will monitor today for further decompensation with encephalopathy. Anticipate discharge tomorrow. I spent a total of 38 minutes coordinating, documenting, and providing care for this patient excluding time spent in the performance of separately billed services or time spent by another provider/QHP. * Librado Francois DO - 01/28/2025 11:50 AM EDT Images from the original note were not included. [facility] [place] B331/A INTERVAL HISTORY: 59 year old male history of decompensated GONZALES status post TIPS on 01/27/2025. Patient had no reported events overnight. Patient is comfortable and denies abdominal pain, nausea, vomiting, fevers, chills. Objective Physical Exam Most Recent Vital Signs: BP: 101 mmHg/64 mmHg (01/28/25950) Pulse: 93 (01/28/25950) Resp: 16 (01/28/25950) Temp: 36.5 C (01/28/25950) Temp Summary: Temp Min: 34.5 °C (94.1 °F) Max: 36.5 °C (97.7 °F) SpO2: 99 % (01/28/25950) O2 flow rate: 8 L/MIN (01/27/25 1215) Supplemental O2 Delivery: Room Air, None (01/28/25950) Cardiac: murmur over the cardiac apex Lungs: Clear Abdomen: diffusely distended, soft Neck: no hematoma overlying the access sites. 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 * I have examined the patient and consistent with the dietitian's findings found malnutrition presentof Moderate (01/15/25 1527) degree. This is consistent with such due to Fat loss;Muscle loss;Inadequate energy intake (01/15/25 1527). I have also reviewed and agree with the dietitian's plan of carewhich include Monitored NPO/clear liquid status (01/15/25 1527). DIFFERENTIAL AND PLAN: 59 year old male history of decompensated GONZALES status post TIPS on 01/27/2025. Serial liver function and CBCs while patient remains hospitalized. 1 month follow up with abdominal ultrasound and labs. PHARMACOLOGIC VTE PROPHYLAXIS: Enoxaparin CODE STATUS: Full Code EXPECTED DISCHARGE DATE: 01/29/2025 Cosigned by Javon Wilder MD at 01/28/2025 12:59 PM EDT Associated attestation - Javon Wilder MD - 01/28/2025 12:59 PM EDT I did not see the patient, but I have reviewed the resident/fellow physician documentation and was readily available on date of service. * Dony Hansen MD - 01/28/2025 7:43 AM EDT Images from the original note were not included. PROGRESS NOTE - Hepatology Service [address] [address] Name: Satish Spencer Location: [facility] B331/A Date: 01/28/2025 Time: 7:43 AM SUBJECTIVE: The patient was seen and examined, chart reviewed. No acute events overnight, underwent tips procedure yesterday successfully. Did endorse some centralized abdominal irritation shortly after procedure but denies any abdominal pain, nausea or vomitingsymptoms this morning. He is tolerating diet. ROS: As above otherwise negative OBJECTIVE: Vital Signs Last 24 Hours: Systolic BP: Most Recent Systolic BP Av.4 mmHg Min: 80 mmHg Max: 105 mmHg Temperature: Most Recent Temperature Av.6 C Min: 34.5 C Max: 36.39 C Pulse: Pulse Av.5 Min: 88 Max: 102 Respirations: Resp Av.8 Min: 15 Max: 27 SpO2: SpO2 Av.8 % Min: 95 % Max: 100 % General: Resting in bed, in no acute distress Eyes: No conjunctival icterus, conjunctiva non-injected Oropharynx: Moist mucus membranes, no erythema Lungs: No respiratory distress Heart: Physiologic rate and rhythm Abdomen: Abdomen is distended, but otherwise soft and grossly nontender to palpation : Deferred Extremities: No edema Neuro: No focal deficits LABS: Labs reviewed as indicated below: Lab results within last 7 days (see chart for full results) Units 01/28/25 0646 01/27/25 0643 01/26/25 0711 Protein g/dL 5.1* 5.0* 5.0* Bilirubin, Total mg/dL 3.1* 1.8* 1.8* Alkaline Phosphatase U/L 281* 230* 230* AST U/L 88* 65* 61* ALT U/L 45 37 36 Lab results within last 7 days (see chart for full results) Units 01/28/25 0646 01/27/25 0643 01/26/25 0711 HGB g/dL 8.8* 8.1* 7.8* HCT % 26.3* 24.3* 23.3* WBC K/uL 5.84 3.73* 4.31 PLT K/uL 58* 54* 53* MELD 3.0: 29 at 01/28/2025 6:46 AM Calculated from: Serum Creatinine: 1.3 mg/dL at 01/28/2025 6:46 AM Serum Sodium: 126 mmol/L at 01/28/2025 6:46 AM Total Bilirubin: 3.1 mg/dL at 01/28/2025 6:46 AM Serum Albumin: 2.3 g/dL at 01/28/2025 6:46 AM INR(ratio): 2.1 at 01/28/2025 6:46 AM Age at listing (hypothetical): 59 years Sex: Male at 01/28/2025 6:46 AM IMAGING: IR VENOUS TIPS Result Date: 01/27/2025 IMPRESSION: Successful transjugular placement of an intrahepatic portosystemic shunt. PLAN: Serial liver function and CBCs while patient remains hospitalized. 1 month follow up with abdominal ultrasound and labs. IMPRESSION: Patient has refractory ascites requiring frequent paracentesis (up to every 5 days). His picayune MELD score is at 16 Meld 3.0 score of 25. Interval repeat TTE continues to show moderate . Patient previously evaluated by transplant and was awaiting further cardiac workup which has been completed. Given his high MELD he would benefit from a transplant evaluation prior to candidacy for TIPS for which transplant surgery consult has been placed. He has had notable decline in functional status with significant frailty which may overall affect his candidacy for transplant. Additionally noted to have peritoneal studies consistent with SBP, started on appropriate abx coverage. After further discussion with Cardiology team, the patient's aortic stenosis does not appear nona a barrier for his TIPS, however, it would likely be too high risk for transplant surgery. However, aortic stenosis is not significant enough and would be too high risk for TAVR at this time. Afterfurther discussion with transplant surgery and Cardiology team, we will plan to move forward with TIPS placement during hospitalization. If patient were to decompensate from liver standpoint following the procedure, Cardiology agreeable to re-evaluate for tips at that time to help optimize the patient for possible transplant. Patient is now s/p successful TIPS procedure 01/27. # Decompensated MASH cirrhosis MELD 29 ([place] MELD 18) # Refractory Ascites s/p TIPS on 01/27 # HCC ( two lesions in right hepatic lobe 2.8 x 2.4 and 1.1 x 1.2 cm (both LIRADS 5)) s/p bland embolization 08/21 and TACE 05/22 with repeat MRI 10/2024 with residual/recurrent tumor currently on SBRT(12/04 completed) RECOMMENDATIONS/PLAN: - s/p TIPS 01/27, observe patient closely for Hepatic Encephalopathy post procedure. - Avoid B-Blockade - c/w Midodrine 15 TID (MAP goal >75) - c/w Lactulose - titrate to 3-5 liquid loose BM per day - cw Rifaximin 550 BID - c/w guest experience captain Torsemide 10 QD (previously intolerant of Furosemide/Aldactone) - Completed 5 day course CTX, now on cipro 500mg - recommend vitamin E supplementation - recommend taurine 1000 mg on discharge - BCAA supplement on discharge - Daily MELD 3.0 labs - PT/OT and ui application developer following - Hepatology to continue following I have discussed the case with my attending, Dr Hansen Attending Attestation: I have discussed the patient's management with the medical trainee and agree with the note. Please refer to the documented findings and plan of care. The patient's bedside service today consisted of an evaluation. I was present and confirmed the findings of the history and exam. * Dony Hansen MD - 01/27/2025 8:13 AM EDT Images from the original note were not included. PROGRESS NOTE - Hepatology Service [address] [address] Name: Satish Spencer Location: [facility] B331/A Date: 01/27/2025 Time: 8:13 AM SUBJECTIVE: The patient was seen and examined, chart reviewed. No acute events overnight. The patient felt well over the weekend and was anxious to get his TIPS done later today. ROS: As above otherwise negative OBJECTIVE: Vital Signs Last 24 Hours: Systolic BP: Most Recent Systolic BP Av.5 mmHg Min: 86 mmHg Max: 96 mmHg Temperature: Most Recent Temperature Av.5 C Min: 36 C Max: 36.89 C Pulse: Pulse Av.8 Min: 82 Max: 96 Respirations: Resp Av.3 Min: 20 Max: 22 SpO2: SpO2 Av.3 % Min: 98 % Max: 100 % General: Resting in bed, in no acute distress Eyes: No conjunctival icterus, conjunctiva non-injected Oropharynx: Moist mucus membranes, no erythema Lungs: No respiratory distress Heart: Physiologic rate and rhythm Abdomen: Soft, non-tender, non-distended, normoactive bowel sounds present in all four quadrants : Deferred Extremities: No edema Neuro: No focal deficits LABS: Labs reviewed as indicated below: Lab results within last 7 days (see chart for full results) Units 01/27/25 0643 01/26/25 0711 01/25/25 0742 Protein g/dL 5.0* 5.0* 5.0* Bilirubin, Total mg/dL 1.8* 1.8* 2.0* Alkaline Phosphatase U/L 230* 230* 229* AST U/L 65* 61* 67* ALT U/L 37 36 36 Lab results within last 7 days (see chart for full results) Units 01/27/25 0643 01/26/25 0711 01/25/25 0742 HGB g/dL 8.1* 7.8* 8.0* HCT % 24.3* 23.3* 23.5* WBC K/uL 3.73* 4.31 4.15 PLT K/uL 54* 53* 60* MELD 3.0: 26 at 01/27/2025 6:43 AM Calculated from: Serum Creatinine: 1.2 mg/dL at 01/27/2025 6:43 AM Serum Sodium: 126 mmol/L at 01/27/2025 6:43 AM Total Bilirubin: 1.8 mg/dL at 01/27/2025 6:43 AM Serum Albumin: 2.2 g/dL at 01/27/2025 6:43 AM INR(ratio): 1.9 at 01/27/2025 6:43 AM Age at listing (hypothetical): 59 years Sex: Male at 01/27/2025 6:43 AM IMAGING: No imaging results in the last 72 hours IMPRESSION: Patient has refractory ascites requiring frequent paracentesis (up to every 5 days). His picayune MELD score is at 16 Meld 3.0 score of 25. Interval repeat TTE continues to show moderate . Patient previously evaluated by transplant and was awaiting further cardiac workup which has been completed. Given his high MELD he would benefit from a transplant evaluation prior to candidacy for TIPS for which transplant surgery consult has been placed. He has had notable decline in functional status with significant frailty which may overall affect his candidacy for transplant. Additionally noted to have peritoneal studies consistent with SBP, started on appropriate abx coverage. After further discussion with Cardiology team, the patient's aortic stenosis does not appear nona a barrier for his TIPS, however, it would likely be too high risk for transplant surgery. However, aortic stenosis is not significant enough and would be too high risk for TAVR at this time. Afterfurther discussion with transplant surgery and Cardiology team, we will plan to move forward with TIPS placement during hospitalization. If patient were to decompensate from liver standpoint following the procedure, Cardiology agreeable to re-evaluate for tips at that time to help optimize the patient for possible transplant. Planning for TIPS procedure 01/27. Decompensated MASH cirrhosis MELD 26 ([place] MELD 18) Refractory Ascites HCC ( two lesions in right hepatic lobe 2.8 x 2.4 and 1.1 x 1.2 cm (both LIRADS 5)) s/p bland embolization 08/21 and TACE 05/22 with repeat MRI 10/2024 with residual/recurrent tumor currently on SBRT (2/ completed) RECOMMENDATIONS/PLAN: - Plan for TIPS today - Avoid B-Blockade - c/w Midodrine 15 TID (MAP goal >75) - c/w Lactulose - titrate to 3-5 liquid loose BM per day - cw Rifaximin 550 BID - c/w guest experience captain Torsemide 10 QD (previously intolerant of Furosemide/Aldactone) - Completed 5 day course CTX, now on cipro 500mg - Daily MELD 3.0 labs - PT/OT and ui application developer following - Hepatology to continue following I have discussed the case with my attending, Dr Hansen Attending Attestation: I have discussed the patient's management with the medical trainee and agree with the note. Please refer to the documented findings and plan of care. The patient's bedside service today consisted of an evaluation. I was present and confirmed the findings of the history and exam. Case discussed withIR. * Stephanie Brenner DO - 01/27/2025 6:21 AM EDT PROGRESS NOTE - Resident - Medicine [facility] [place] [address] Name: Satish Spencer Location: RADIOLOGY WAITING ROOM/IR Date: 01/27/2025 Time: 11:56 AM Date of admission: 01/14/2025 Overnight: No acute events. Today: On evaluation this morning patient states that he feels fine. Denies fevers, chills, chest pain, shortness of breath, nausea, vomiting, abdominal pain. He continues to state that his abdomen does not feel full very full. Denies shortness of breath or any increased work of breathing. He states that his lightheadedness upon standing is better. He notes that he has been getting up to the chair and ambulating to the restroom. PHYSICAL EXAMINATION: Most Recent Vital Signs: BP: 100 mmHg/58 mmHg (01/27/25904) Pulse: 88 (01/27/25904) Resp: 15 (01/27/25904) Temp: 36.39 C (01/27/25904) Temp Summary: Temp Min: 36.3 °C (97.3 °F) Max: 36.9 °C (98.4 °F) SpO2: 100 % (01/27/25904) O2 flow rate: Supplemental O2 Delivery: Room Air, None (01/27/25904) Intake/Output: Intake/Output Summary (Last 24 hours) at 01/27/2025 1156 Last data filed at 01/27/2025 1124 Gross per 24 hour Intake 1562 ml Output 400 ml Net 1162 ml Weight: Patient Vitals for the past 72 hrs: Weight 01/27/25 0500 103.9 kg (229 lb 0.9 oz) 01/26/25 0500 103.8 kg (228 lb 13.4 oz) 01/26/25 0022 104.9 kg (231 lb 4.2 oz) 01/25/25 0147 108.7 kg (239 lb 10.2 oz) General: Chronically ill appearing middle aged male laying in the bed in no acute distress, wakes to voice HEENT: mucous membranes pink and moist CV: regular rate and rhythm, murmur noted Resp: clear to auscultation no wheezes, no rhonchi, no rales, slightly decreased breath sounds on the left posterior lung base compared to the right Abdomen: distended but soft, no tenderness to palpation all four quadrants, paracentesis site with bandage that is clean, dry, intact, umbilical hernia protruding more than prior, though still soft, reducible. Extremities: no edema BLE Skin: warm and dry Neuro: wakes to voice and is quickly alert and oriented x3, moves all extremities in the bed, follows commands Psych: appropriate affect Peripheral Line Left;Lower Arm 24 Gauge (Active) Number of days: 11 Peripheral Line Right Antecubital 20 Gauge (Active) Number of days: 7 Laboratory Values: reviewed. INR 1.9 PT 22.3 Na 126 K 3.9 CO2 20 Creat 1.2 AST 65 ALT 37 ALP 230 T bili 1.8 Albumin 2.2 Wbc 3.73 decreased today, hgb 8.1, hct 24.3, plt 54 MELD 3.0: 26 at 01/27/2025 6:43 AM Calculated from: Serum Creatinine: 1.2 mg/dL at 01/27/2025 6:43 AM Serum Sodium: 126 mmol/L at 01/27/2025 6:43 AM Total Bilirubin: 1.8 mg/dL at 01/27/2025 6:43 AM Serum Albumin: 2.2 g/dL at 01/27/2025 6:43 AM INR(ratio): 1.9 at 01/27/2025 6:43 AM Age at listing (hypothetical): 59 years Sex: Male at 01/27/2025 6:43 AM Radiographic Studies: reviewed. 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 * POA = Present On Admission I have examined the patient and consistent with the dietitian's findings found malnutrition presentof Moderate (01/15/25 1527) degree. This is consistent with such due to Fat loss;Muscle loss;Inadequate energy intake (01/15/25 1527). I have also reviewed and agree with the dietitian's plan of carewhich include Monitored NPO/clear liquid status (01/15/25 1527). Satish Spencer is a 59 year old [facility] MAS cirrhosis, HCC who was transferred from [facility] for evaluation and treatment of SBP, pleural effusion s/p chest tube placement, and ascites requiring increasingly frequent paracentesis. He was transferred for evaluation for possible TIPS. DIFFERENTIAL DIAGNOSIS AND PLAN OF CARE: Decompensated MASH cirrhosis Ascites s/p paracentesis 01/17/2025 SBP-resolved Chronic hyponatremia Chronic Hypotension Patient with worsening ascites requiring frequent paracentesis. Patient transferred for potential TIPS evaluation. - Hepatology and transplant teams following for transplant candidacy workup. -Patient tolerating uptitration of his diuretic regimen -TIPS by IR today -Continue lactulose. Will titrate for goal 3-5 per day. -continue rifaximin 550mg BID -Treatment for SBP with ceftriaxone 2g Q 24 hours x 5 days total has been completed (end date: 01/19/25). -Continue ciprofloxacin 500mg PO daily for prophylaxis of SBP - continue midodrine 15mg TID per hepatology recommendation -Dentistry consult completed -Continue torsemide 10mg daily -Will continue spironolactone 50 mg daily -will continue daily fluid restriction to 1500ml -general surgery has evaluated; reports sutures to patient's umbilicus should stay in Left pleural effusion-stable Left rib fractures-pain resolved S/p chest tube removal by thoracic surgery on 01/15/25. Pleural effusion transudative 2/2 ascites. Patient respiratory status has been stable thus far. Acute on Chronic anemia Thrombocytopenia-stable Patient denies bleeding. No evidence of bleeding clinically. - s/p transfusion with 1 u prbcs on 01/21/25 with appropriate response Chronic problems: - BPH: increased guest experience captain flomax to 0.8mg daily given concern for difficulty urinating last week - gout: continue guest experience captain allopurinol - GERD: continue guest experience captain omeprazole - HLD: continue guest experience captain atorvastatin - DM: lantus 8 qam, MDSS with meals only, CC 1:15 Diet: Orders Placed This Encounter Procedures NPO After 2400 Except Meds VTE Prophylaxis: This patient does not have an active medication from one of the medication groupers. Lines and Tubes: Peripheral Line Left;Lower Arm 24 Gauge (Active) Number of days: 11 Peripheral Line Right Antecubital 20 Gauge (Active) Number of days: 7 PT/OT: consulted Anticipated Date of Discharge: Code Status: Code Status: Full Code Patient discussed with Dr. Craig, attending physician. Cosigned by Issac Craig MD at 01/27/2025 12:31 PM EDT Associated attestation - Issac Craig MD - 01/27/2025 12:31 PM EDT I saw and evaluated the patient today. I have reviewed the resident/fellow physician note and agree. TIPS today. Case discussed with Hepatology fellow. Plan to monitor for at least 1-2 days following TIPS due to risks. If decompensates, will need an expedited TAVR workup and transplant evaluation. I spent a total of 45 minutes coordinating, documenting, and providing care for this patient excluding time spent in the performance of separately billed services or time spent by another provider/QHP. * Stephanie Brenner, DO - 01/26/2025 6:56 AM EDT PROGRESS NOTE - Resident - Medicine [facility] [place] [address] Name: Satish Spencer Location: [facility] B331/A Date: 01/26/2025 Time: 2:53 PM Date of admission: 01/14/2025 Overnight: No acute events. Today: On evaluation this morning patient states that he feels tired. States that he didn't sleep well last night. Denies fevers, chills, chest pain, shortness of breath, nausea, vomiting, abdominal pain. He continues to state that his abdomen does not feel full. Denies shortness of breath or any increased work of breathing. He states that his lightheadedness upon standing is unchanged. He notes that he has been getting up to the chair and ambulating to the restroom. PHYSICAL EXAMINATION: Most Recent Vital Signs: BP: 94 mmHg/58 mmHg (01/26/25 1021) Pulse: 82 (01/26/25 1021) Resp: 22 (01/26/25 1021) Temp: 36 C (01/26/25 1021) Temp Summary: Temp Min: 36 °C (96.8 °F) Max: 36.7 °C (98.1 °F) SpO2: 100 % (01/26/25 1021) O2 flow rate: Supplemental O2 Delivery: Room Air, None (01/26/25 1021) Intake/Output: Intake/Output Summary (Last 24 hours) at 01/26/2025 1453 Last data filed at 01/26/2025 1450 Gross per 24 hour Intake 960 ml Output 400 ml Net 560 ml Weight: Patient Vitals for the past 72 hrs: Weight 01/26/25 0500 103.8 kg (228 lb 13.4 oz) 01/26/25 0022 104.9 kg (231 lb 4.2 oz) 01/25/25 0147 108.7 kg (239 lb 10.2 oz) 01/24/25 0644 106.2 kg (234 lb 2.1 oz) General: Chronically ill appearing middle aged male laying in the bed in no acute distress, wakes to voice HEENT: mucous membranes pink and moist CV: regular rate and rhythm, murmur noted Resp: clear to auscultation no wheezes, no rhonchi, no rales Abdomen: distended but soft, no tenderness to palpation all four quadrants, paracentesis site with bandage that is clean, dry, intact. Extremities: no edema BLE Skin: warm and dry Neuro: wakes to voice and is quickly alert and oriented x3, moves all extremities in the bed, follows commands Psych: appropriate affect Peripheral Line Left;Lower Arm 24 Gauge (Active) Number of days: 10 Peripheral Line Right Antecubital 20 Gauge (Active) Number of days: 6 Laboratory Values: reviewed. INR 1.9 PT 22.1 Na 126 K 3.2 CO2 20 Creat 1.2 AST 61 ALT 36 ALP 230 T bili 1.8 Albumin 2.2 Wbc 4.31, hgb 7.8, hct 23.3, plt 53 MELD 3.0: 25 at 01/26/2025 1:54 PM Calculated from: Serum Creatinine: 1.2 mg/dL at 01/26/2025 1:54 PM Serum Sodium: 127 mmol/L at 01/26/2025 1:54 PM Total Bilirubin: 1.8 mg/dL at 01/26/2025 7:11 AM Serum Albumin: 2.2 g/dL at 01/26/2025 7:11 AM INR(ratio): 1.9 at 01/26/2025 7:11 AM Age at listing (hypothetical): 59 years Sex: Male at 01/26/2025 1:54 PM Radiographic Studies: reviewed. 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 * POA = Present On Admission I have examined the patient and consistent with the dietitian's findings found malnutrition presentof Moderate (01/15/25 1527) degree. This is consistent with such due to Fat loss;Muscle loss;Inadequate energy intake (01/15/25 1527). I have also reviewed and agree with the dietitian's plan of carewhich include Monitored NPO/clear liquid status (01/15/25 1527). Satish Spencer is a 59 year old [facility] cirrhosis, HCC who was transferred from [facility] for evaluation and treatment of SBP, pleural effusion s/p chest tube placement, and ascites requiring increasingly frequent paracentesis. He was transferred for evaluation for possible TIPS. DIFFERENTIAL DIAGNOSIS AND PLAN OF CARE: Decompensated [facility] cirrhosis Ascites s/p paracentesis 01/17/2025 SBP-resolved Chronic hyponatremia Chronic Hypotension Patient with worsening ascites requiring frequent paracentesis. Patient transferred for potential TIPS evaluation. - Hepatology and transplant teams following for transplant candidacy workup. -Patient tolerating uptitration of his diuretic regimen -Planning for TIPS, scheduling per IR availability, possibly tomorrow, will make NPO after 2400 except meds and hold am lovenox -Continue lactulose. Will titrate for goal 3-5 per day. -continue rifaximin 550mg BID -Treatment for SBP with ceftriaxone 2g Q 24 hours x 5 days total has been completed (end date: 01/19/25). -Continue ciprofloxacin 500mg PO daily for prophylaxis of SBP - continue midodrine 15mg TID per hepatology recommendation -Dentistry consult completed -Continue torsemide 10mg daily -Will increase to spironolactone 50 mg daily -will continue daily fluid restriction to 1500ml -general surgery has evaluated; reports sutures to patient's umbilicus should stay in Left pleural effusion-stable Left rib fractures-pain resolved S/p chest tube removal by thoracic surgery on 01/15/25. Pleural effusion transudative 2/2 ascites. Patient respiratory status has been stable thus far. Acute on Chronic anemia Thrombocytopenia-stable Patient denies bleeding. No evidence of bleeding clinically. - s/p transfusion with 1 u prbcs on 01/21/25 with appropriate response Chronic problems: - BPH: increased guest experience captain flomax to 0.8mg daily given concern for difficulty urinating last week - gout: continue guest experience captain allopurinol - GERD: continue guest experience captain omeprazole - HLD: continue guest experience captain atorvastatin - DM: lantus 8 qam, MDSS with meals only, CC 1:15 Diet: Orders Placed This Encounter Procedures Adult Complex Diet : Consistent Carbohydrate - 4 Choices (60 grams) --- Fluid Restriction (ml): 1500 NPO After 2400 Except Meds VTE Prophylaxis: This patient does not have an active medication from one of the medication groupers. Lines and Tubes: Peripheral Line Left;Lower Arm 24 Gauge (Active) Number of days: 10 Peripheral Line Right Antecubital 20 Gauge (Active) Number of days: 6 PT/OT: consulted Anticipated Date of Discharge: Code Status: Code Status: Full Code Patient discussed with Dr. Craig, attending physician. Cosigned by Issac Craig MD at 01/26/2025 4:21 PM EDT Associated attestation - Issac Craig MD - 01/26/2025 4:21 PM EDT I saw and evaluated the patient today. I have reviewed the resident/fellow physician note and agree. I spent a total of 36 minutes coordinating, documenting, and providing care for this patient excluding time spent in the performance of separately billed services or time spent by another provider/QHP. * Issac Craig MD - 01/25/2025 10:45 AM EDT PROGRESS NOTE - Resident - Medicine [facility] [place] [address] Name: Satish Spencer Location: [facility] B331/A Date: 01/25/2025 Time: 10:45 AM INTERVAL HISTORY AND SUBJECTIVE: No acute events overnight. Slept well. Eating well. Denies any significant pain, nausea/vomiting, shortness of breath. States abdomen feels the best he has felt in a while. Offers no other complaints this time Pertinent ROS reviewed in HPI, otherwise negative. PHYSICAL EXAMINATION: Most Recent Vital Signs: BP: 91 mmHg/61 mmHg (01/25/25 1029) Pulse: 86 (01/25/25 1029) Resp: 20 (01/25/25 1029) Temp: 36.28 C (01/25/25 102) Temp Summary: Temp Min: 36.3 °C (97.3 °F) Max: 36.7 °C (98 °F) SpO2: 100 % (01/25/25 1029) O2 flow rate: Supplemental O2 Delivery: Room Air, None (01/25/25 102) Vital Signs Last 24 Hours: Systolic BP: Most Recent Systolic BP Av mmHg Min: 70 mmHg Max: 97 mmHg Temperature: Most Recent Temperature Av.4 C Min: 36.28 C Max: 36.67 C Pulse: Pulse Av Min: 69 Max: 92 Respirations: Resp Av.6 Min: 16 Max: 20 SpO2: SpO2 Av.6 % Min: 92 % Max: 100 % Intake/Output Intake/Output Summary (Last 24 hours) at 01/25/2025 1045 Last data filed at 01/25/2025 0530 Gross per 24 hour Intake 597 ml Output 550 ml Net 47 ml Last BM: 01/25/2025 Weight: Patient Vitals for the past 72 hrs: Weight 01/25/25 0147 108.7 kg (239 lb 10.2 oz) 01/24/25 0644 106.2 kg (234 lb 2.1 oz) 01/23/25 0507 106.1 kg (233 lb 14.5 oz) ; Body mass index is 34.38 kg/m². General: Chronically ill-appearing, middle-aged male, resting comfortably in bed, no acute distress Eyes: EOMI, sclera anicteric, conjunctiva clear ENT: External ears normal, external nose normal, moist mucous membranes, neck supple, no appreciable thyromegaly CV: No obvious peripheral or perioral cyanosis Lungs: No increased work of breathing or conversational dyspnea Neurologic: Awake, Alert, and Oriented x 3 Psych: Pleasant, Cooperative, Appropriate mood, Appropriate affect Labs/Imaging: Reviewed in Epic. ASSESSMENT AND PLAN OF CARE : Satish Spencer is a 59 year old male with history of decompensated MASH cirrhosis requiring frequentoutpatient paracentesis and hepatocellular carcinoma [facility] 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 * POA = Present On Admission Decompensated MASH cirrhosis Ascites s/p paracentesis 01/17/2025 Chronic hyponatremia/thrombocytopenia/hypotension Spontaneous bacterial peritonitis (resolved) Left pleural effusion (stable) Left rib fractures (pain resolved) Interventional Radiology planning for TIPS procedure this week, pending IR availability Continue lactulose and rifaximin 550 mg twice daily Continue ciprofloxacin 500 mg daily for SBP prophylaxis Continue midodrine 15 mg 3 times daily per Hepatology recommendations Continue torsemide 10 mg daily, increase spironolactone to 37.5 mg daily Continue fluid restriction at 1.5 L Chronic Conditions: BPH: Continue Flomax 0.8 mg daily : Gout: Continue [employer]ROLE[employer] INS[employer]OR SUPER[employer]OR allopurinol GERD: Continue [employer]PER[employer]OR omeprazole Dyslipidemia: Continue PETRO[employer] INS[employer] SUPER[employer]OR atorvastatin DM type 2: Continue Lantus 8 units q.a.m. plus MD SS with meals plus carb coverage 1:15 Diet: Orders Placed This Encounter Procedures Adult Complex Diet : Consistent Carbohydrate - 4 Choices (60 grams) --- Fluid Restriction (ml): 1500 I have examined the patient and consistent with the dietitian's findings found malnutrition presentof Moderate (01/15/25 1527) degree. This is consistent with such due to Fat loss;Muscle loss;Inadequate energy intake (01/15/25 1527). I have also reviewed and agree with the dietitian's plan of carewhich include Monitored NPO/clear liquid status (01/15/25 1527). I have seen muscle mass loss. This plan of care has been developed to treat malnutrition by oral nutrition supplement. Additional Information: Consults: HEPATOLOGY CONSULT IP THORACIC SURGERY CONSULT IP ADULT PHYSICAL THERAPY CONSULT IP ADULT OCCUPATIONAL THERAPY CONSULT IP TRANSPLANT SERVICE CONSULT IP CARDIOLOGY CONSULT IP DENTISTRY CONSULT IP GENERAL SURGERY CONSULT IP Lines/Access: Peripheral Line Left;Lower Arm 24 Gauge (Active) Number of days: 9 Peripheral Line Right Antecubital 20 Gauge (Active) Number of days: 5 VTE Ppx: Subcutaneous enoxaparin 40 mg daily Bowel Regimen: Lactulose for hepatic encephalopathy prophylaxis CODE STATUS: Code Status: Full Code ANTICIPATED DISCHARGE: 2 days or more Plan has been discussed with the patient. Family will be updated periodically, as appropriate. A total of 30 minutes was spent reviewing the chart, caring for the patient, and discussing the plan of care with the patient. Issac Craig MD * Sharon Cormier MD - 01/25/2025 9:56 AM EDT Progress Note - Hepatology [address] [address] Name: Satish Spencer Location: [facility] B331/A Date: 01/25/2025 Time: 9:56 AM SUBJECTIVE: Patient was seen and examined at the bedside. No acute event overnight. Patient does not have any new complaint. Appetite is good. No nausea or vomiting. 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 [facility] Past Surgical History: Past Surgical History: Procedure Laterality Date ABD/PELVIS CT W/O IV AND W/O PO CONTRAST 03/30/2010 diverticulitis, [facility] CHG CT HEAD/BRAIN W/O CONTRAST MATERIAL 02/27/2024 no acute changes to explain encephalopathy COLONOSCOPY, DIAGNOSTIC (RECTUM) 06/07/2019 normal, repeat 5 yrs/[facility] COLONOSCOPY, DIAGNOSTIC (RECTUM) N/A 01/11/2024 hemorrhoids/recall 5 years/Colonoscopy/[place] COLORECTAL CANCER SCREEN; COLON 05/22/2010 wnl , [...] performed by Gerardo Workman MD at ENDOSCOPY [facility] EGD, FLEXIBLE, DIAGNOSTIC 07/04/2023 Portal hypertensive gastropathy., esophagus and duodenuum normal (EGD), FLEXIBLE, TRANSORAL, DIAGNOSTIC performed by Juli Krause DO at ENDOSCOPY [facility] EGD, FLEXIBLE, DIAGNOSTIC N/A 09/05/2024 moderate portal hypertensive gastropathy/recall 2 years/ESOPHAGOGASTRODUODENOSCOPY (EGD), FLEXIBLE,TRANSORAL, DIAGNOSTIC performed by Jayla Armstrong MD at OR [facility] FOBT (EIA) 08/27/2023 negative IR BIOPSY [...] small amount of ascites, <500 cc Social History: Social History Tobacco Use Smoking status: Never Smokeless tobacco: Former Types: Chew Quit date: 05/18/2005 Vaping Use Vaping status: Never Used Substance Use Topics Alcohol use: Not Currently Comment: quit "2001" Drug use: No Family History: Family History Adopted: Yes Problem Relation Name [...] kira Hypertension Brother Bill Heart attack Brother Leoncio Diabetes Brother Bill Hyperlipidemia Brother Leoncio No Known Problems Brother Mathew Allergies: Aspirin and Salicylates ROS: Reviewed, negative except as above. PHYSICAL EXAMINATION: Most Recent Vital Signs: BP: 97 mmHg/59 mmHg (01/25/25 0510) Pulse: 85 (01/25/25 0510) Resp: 16 (01/25/25 0506) Temp: 36.28 C (01/25/25 0506) Temp Summary: Temp Min: 36.3 °C (97.3 °F) Max: 36.7 °C (98 °F) SpO2: 100 % (01/25/25 0506) O2 flow rate: Supplemental O2 Delivery: Room Air, None (01/25/25 0506) Vital Signs Last 24 Hours: Systolic BP: Most Recent Systolic BP Av.6 mmHg Min: 70 mmHg Max: 97 mmHg Temperature: Most Recent Temperature Av.5 C Min: 36.28 C Max: 36.67 C Pulse: Pulse Av.8 Min: 69 Max: 92 Respirations: Resp Av Min: 16 Max: 18 SpO2: SpO2 Av % Min: 92 % Max: 100 % General: Patient is awake, alert, oriented x 3, and in no acute distress Head and face: normocephalic and atraumatic Eyes: No scleral icterus; normal lids Neck: Supple. Good ROM Heart: Not tachycardic Respiratory: not in respiratory distress. Abdomen: Soft, non-tender, distended, umbilical hernia Extremities: No cyanosis, or clubbing. + edema Skin: Warm, dry, intact. Neuro: Alert and oriented x 3. Speech appropriate, moves all extremities. LABS: MELD 3.0: 26 at 01/25/2025 7:42 AM MELD-Na: 26 at 01/25/2025 7:42 AM Calculated from: Serum Creatinine: 1.1 mg/dL at 01/25/2025 7:42 AM Serum Sodium: 123 mmol/L (Using min of 125 mmol/L) at 01/25/2025 7:42 AM Total Bilirubin: 2 mg/dL at 01/25/2025 7:42 AM Serum Albumin: 2.1 g/dL at 01/25/2025 7:42 AM INR(ratio): 1.9 at 01/25/2025 7:42 AM Age at listing (hypothetical): 59 years Sex: Male at 01/25/2025 7:42 AM IMAGES: Reviewed in Epic IMPRESSION: Patient has refractory ascites requiring frequent paracentesis (up to every 5 days). His picayune MELD score is at 16 Meld 3.0 score of 25. Interval repeat TTE continues to show moderate . Patient previously evaluated by transplant and was awaiting further cardiac workup which has been completed. Given his high MELD he would benefit from a transplant evaluation prior to candidacy for TIPS for which transplant surgery consult has been placed. He has had notable decline in functional status with significant frailty which may overall affect his candidacy for transplant. Additionally noted to have peritoneal studies consistent with SBP, started on appropriate abx coverage. After further discussion with Cardiology team, the patient's aortic stenosis does not appear nona a barrier for his TIPS, however, it would likely be too high risk for transplant surgery. However, aortic stenosis is not significant enough and would be too high risk for TAVR at this time. Afterfurther discussion with transplant surgery and Cardiology team, we will plan to move forward with TIPS placement during hospitalization. If patient were to decompensate from liver standpoint following the procedure, Cardiology agreeable to re-evaluate for TAVR at that time to help optimize the patient for possible transplant RECOMMENDATIONS/PLAN: Decompensated MASH cirrhosis MELD 26 ([place] MELD 18) Refractory Ascites HCC ( two lesions in right hepatic lobe 2.8 x 2.4 and 1.1 x 1.2 cm (both LIRADS 5)) s/p bland embolization 08/21 and TACE 05/22 with repeat MRI 10/2024 with residual/recurrent tumor currently on SBRT (2/ completed) RECOMMENDATIONS/PLAN: - IR plan for TIPS next week, pending schedule availablility - therapeutic paracentesis as needed. - Avoid B-Blockade - c/w Midodrine 15 TID (MAP goal >75) - c/w Lactulose - titrate to 3-5 liquid loose BM per day - cw Rifaximin 550 BID - c/w guest experience captain Torsemide 10 QD (previously intolerant of Furosemide/Aldactone) - Completed 5 day course CTX, now on cipro 500mg - recommend Fluid restriction for hyponatremia (2000 ml) if Na <125 - Daily MELD 3.0 labs - PT/OT and ui application developer following - Hepatology to continue following I have discussed the case with my attending, Dr. Oleary. Sharon Torres MD Gastroenterology Fellow, [facility] Cosigned by Spike Oleary DO at 01/25/2025 10:05 AM EDT Associated attestation - Spike Oleary DO - 01/25/2025 10:05 AM EDT I did not see the patient, but I have reviewed the resident/fellow physician documentation and was readily available on date of service. * Dony Hansen MD - 01/24/2025 8:55 AM EDT Images from the original note were not included. PROGRESS NOTE - Hepatology Service [facility] [place]-[address] [address] Name: Satish Spencer Location: [facility] B331/A Date: 01/24/2025 Time: 7:55 AM SUBJECTIVE: The patient was seen and examined, chart reviewed. No acute events overnight. The patient continued to feel he was doing very well, and he had not noticed any significant accumulation of fluid in his abdomen, bloating, or discomfort. He expressed understanding of updated plan for tips procedure and had no questions or concerns at this time. ROS: As above otherwise negative OBJECTIVE: Vital Signs Last 24 Hours: Systolic BP: Most Recent Systolic BP Av.2 mmHg Min: 82 mmHg Max: 94 mmHg Temperature: Most Recent Temperature Av.5 C Min: 36.22 C Max: 37 C Pulse: Pulse Av.2 Min: 88 Max: 97 Respirations: Resp Av.8 Min: 16 Max: 19 SpO2: SpO2 Av.3 % Min: 95 % Max: 100 % General: Resting in no distress Eyes: No conjunctival icterus, conjunctiva non-injected Oropharynx: Moist mucus membranes, no erythema Lungs: No respiratory distress Heart: Physiologic rate and rhythm Abdomen: Soft, somewhat distended, non-tender : Deferred Extremities: No edema Neuro: No focal deficits LABS: Labs reviewed as indicated below: Lab results within last 7 days (see chart for full results) Units 01/24/25 0607 01/23/25 0532 01/22/25 0551 Protein g/dL 4.9* 4.9* 4.9* Bilirubin, Total mg/dL 2.1* 2.2* 2.9* Alkaline Phosphatase U/L 226* 203* 200* AST U/L 64* 89* 61* ALT U/L 37 35 33 Lab results within last 7 days (see chart for full results) Units 01/24/25 0607 01/23/25 0532 01/22/25 0551 HGB g/dL 8.2* 7.7* 8.2* HCT % 24.8* 23.4* 24.7* WBC K/uL 4.44 4.44 4.48 PLT K/uL 57* 56* 52* MELD 3.0: 26 at 01/24/2025 6:07 AM Calculated from: Serum Creatinine: 1.2 mg/dL at 01/24/2025 6:07 AM Serum Sodium: 126 mmol/L at 01/24/2025 6:07 AM Total Bilirubin: 2.1 mg/dL at 01/24/2025 6:07 AM Serum Albumin: 2.1 g/dL at 01/24/2025 6:07 AM INR(ratio): 1.9 at 01/24/2025 6:07 AM Age at listing (hypothetical): 59 years Sex: Male at 01/24/2025 6:07 AM IMAGING: No imaging results in the last 72 hours IMPRESSION: Patient has refractory ascites requiring frequent paracentesis (up to every 5 days). His picayune MELD score is at 16 Meld 3.0 score of 25. Interval repeat TTE continues to show moderate . Patient previously evaluated by transplant and was awaiting further cardiac workup which has been completed. Given his high MELD he would benefit from a transplant evaluation prior to candidacy for TIPS for which transplant surgery consult has been placed. He has had notable decline in functional status with significant frailty which may overall affect his candidacy for transplant. Additionally noted to have peritoneal studies consistent with SBP, started on appropriate abx coverage. After further discussion with Cardiology team, the patient's aortic stenosis does not appear nona a barrier for his TIPS, however, it would likely be too high risk for transplant surgery. However, aortic stenosis is not significant enough and would be too high risk for TAVR at this time. Afterfurther discussion with transplant surgery and Cardiology team, we will plan to move forward with TIPS placement during hospitalization. If patient were to decompensate from liver standpoint following the procedure, Cardiology agreeable to re-evaluate for tips at that time to help optimize the patient for possible transplant [facility]ensated [facility] MELD 26 ([place] MELD 18) Refractory Ascites HCC ( two lesions in right hepatic lobe 2.8 x 2.4 and 1.1 x 1.2 cm (both LIRADS 5)) s/p bland embolization 08/21 and TACE 05/22 with repeat MRI 10/2024 with residual/recurrent tumor currently on SBRT (2/ completed) RECOMMENDATIONS/PLAN: - IR consulted for TIPS, pending schedule availablility - Consider evaluation for repeat paracentesis, last para 01/17 - If good fluid pocket, please send cell count and diff, albumin, protein, and culture - Avoid B-Blockade - c/w Midodrine 15 TID (MAP goal >75) - c/w Lactulose - titrate to 3-5 liquid loose BM per day - cw Rifaximin 550 BID - c/w guest experience captain Torsemide 10 QD (previously intolerant of Furosemide/Aldactone) - Completed 5 day course CTX, now on cipro 500mg - recommend Fluid restriction for hyponatremia (2000 ml) if Na <125 - Daily MELD 3.0 labs - PT/OT and ui application developer following - Hepatology to continue following I have discussed the case with my attending, Dr Hansen Attending Attestation: I have discussed the patient's management with the medical trainee and agree with the note. Please refer to the documented findings and plan of care. The patient's bedside service today consisted of an evaluation. I was present and confirmed the findings of the history and exam. * Stephanie Brenner DO - 01/24/2025 6:00 AM EDT PROGRESS NOTE - Resident - Medicine [facility] [place]-[address] [address] Name: Satish Spencer Location: [facility] B331/A Date: 01/24/2025 Time: 1:11 PM Date of admission: 01/14/2025 Overnight: No acute events. Today: On evaluation this morning patient continues to endorse that he is feeling great. Denies fevers, chills, chest pain, shortness of breath, nausea, vomiting, abdominal pain. He continues to state that his abdomen does not feel full. Denies shortness of breath or any increased work of breathing. He states that his lightheadedness upon standing is unchanged or if anything slightly improved. Hestates that he feels well-rested today. He states that he is hungry. PHYSICAL EXAMINATION: Most Recent Vital Signs: BP: 90 mmHg/57 mmHg (01/24/25950) Pulse: 93 (01/24/25950) Resp: 16 (01/24/25950) Temp: 36.5 C (01/24/25950) Temp Summary: Temp Min: 36.2 °C (97.2 °F) Max: 37 °C (98.6 °F) SpO2: 99 % (01/24/25950) O2 flow rate: Supplemental O2 Delivery: Room Air, None (01/24/25950) Intake/Output: Intake/Output Summary (Last 24 hours) at 01/24/2025 1311 Last data filed at 01/24/2025 0940 Gross per 24 hour Intake 680 ml Output 400 ml Net 280 ml Weight: Patient Vitals for the past 72 hrs: Weight 01/24/25 0644 106.2 kg (234 lb 2.1 oz) 01/23/25 0507 106.1 kg (233 lb 14.5 oz) 01/22/25 0617 104.7 kg (230 lb 13.2 oz) General: Chronically ill appearing middle aged male laying in the bed in no acute distress HEENT: mucous membranes pink and moist CV: regular rate and rhythm, murmur noted Resp: clear to auscultation no wheezes, no rhonchi, no rales Abdomen: soft, no tenderness to palpation all four quadrants, paracentesis site with bandage that is clean, dry, intact. Extremities: no edema BLE Skin: warm and dry Neuro: awake, alert, oriented x3, moves all extremities in the bed Psych: appropriate affect Peripheral Line Left;Lower Arm 24 Gauge (Active) Number of days: 8 Peripheral Line Right Antecubital 20 Gauge (Active) Number of days: 4 Laboratory Values: reviewed. INR 1.9 PT 21.9 Na 126 K 3.9 CO2 21 Creat 1.2 AST 64 ALT 37 ALP 226 T bili 2.1 Albumin 2.1 Wbc 4.44, hgb 8.2, hct 2.8, plt 57 MELD 3.0: 26 at 01/24/2025 6:07 AM Calculated from: Serum Creatinine: 1.2 mg/dL at 01/24/2025 6:07 AM Serum Sodium: 126 mmol/L at 01/24/2025 6:07 AM Total Bilirubin: 2.1 mg/dL at 01/24/2025 6:07 AM Serum Albumin: 2.1 g/dL at 01/24/2025 6:07 AM INR(ratio): 1.9 at 01/24/2025 6:07 AM Age at listing (hypothetical): 59 years Sex: Male at 01/24/2025 6:07 AM Radiographic Studies: reviewed. 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 * POA = Present On Admission I have examined the patient and consistent with the dietitian's findings found malnutrition presentof Moderate (01/15/25 1527) degree. This is consistent with such due to Fat loss;Muscle loss;Inadequate energy intake (01/15/25 1527). I have also reviewed and agree with the dietitian's plan of carewhich include Monitored NPO/clear liquid status (01/15/25 1527). Satish Spencer is a 59 year old [facility] cirrhosis, HCC who was transferred from [facility] for evaluation and treatment of SBP, pleural effusion s/p chest tube placement, and ascites requiring increasingly frequent paracentesis. He was transferred for evaluation for possible TIPS. DIFFERENTIAL DIAGNOSIS AND PLAN OF CARE: Decompensated MASH cirrhosis Ascites s/p paracentesis 01/17/2025 SBP-resolved Chronic hyponatremia Chronic Hypotension Patient with worsening ascites requiring frequent paracentesis. Patient transferred for potential TIPS evaluation. Patient with worsening hypotension to 70s systolic yesterday afternoon. - Hepatology and transplant teams following for transplant candidacy workup. -Patient tolerating uptitration of his diuretic regimen -Planning for TIPS, scheduling per IR availability -Continue lactulose. Will titrate for goal 3-5 per day. -continue rifaximin 550mg BID -Treatment for SBP with ceftriaxone 2g Q 24 hours x 5 days total has been completed (end date: 01/19/25. -Continue ciprofloxacin 500mg PO daily for prophylaxis of SBP - continue midodrine 15mg TID per hepatology recommendation -Dentistry consult completed -Continue torsemide 10mg daily -Will increase to spironolactone 25mg daily -will continue daily fluid restriction to 1500ml -general surgery has evaluated; reports sutures to patient's umbilicus should stay in Left pleural effusion-stable Left rib fractures-pain resolved S/p chest tube removal by thoracic surgery on 01/15/25. Pleural effusion transudative 2/2 ascites. Patient respiratory status has been stable thus far. Acute on Chronic anemia Thrombocytopenia-stable Patient denies bleeding. No evidence of bleeding clinically. - s/p transfusion with 1 u prbcs on 01/21/25 with appropriate response Chronic problems: - BPH: increased guest experience captain flomax to 0.8mg daily given concern for difficulty urinating earlier in the week - gout: continue guest experience captain allopurinol - GERD: continue guest experience captain omeprazole - HLD: continue guest experience captain atorvastatin - DM: lantus 8 qam, MDSS with meals only, CC 1:15 Diet: Orders Placed This Encounter Procedures Adult Complex Diet : Consistent Carbohydrate - 4 Choices (60 grams) --- Fluid Restriction (ml): 1500 VTE Prophylaxis: Enoxaparin Lines and Tubes: Peripheral Line Left;Lower Arm 24 Gauge (Active) Number of days: 8 Peripheral Line Right Antecubital 20 Gauge (Active) Number of days: 4 PT/OT: consulted Anticipated Date of Discharge: Code Status: Code Status: Full Code Patient discussed with Dr. Craig, attending physician. Cosigned by Issac Craig MD at 01/24/2025 3:56 PM EDT Associated attestation - Issac Craig MD - 01/24/2025 3:56 PM EDT I saw and evaluated the patient today. I have reviewed the resident/fellow physician note and agree. I spent a total of 42 minutes coordinating, documenting, and providing care for this patient excluding time spent in the performance of separately billed services or time spent by another provider/QHP. * Dony Hansen MD - 01/23/2025 8:54 AM EDT Images from the original note were not included. PROGRESS NOTE - Hepatology Service [facility] [place] [address] Name: Satish Spencer Location: [facility] B331/A Date: 01/23/2025 Time: 7:54 AM SUBJECTIVE: The patient was seen and examined, chart reviewed. No acute events overnight. The patient states he was able to sleep okay and continues to feel his strength gets better slowly every day. He denied any abdominal pain, nausea, or vomiting. ROS: As above otherwise negative OBJECTIVE: Vital Signs Last 24 Hours: Systolic BP: Most Recent Systolic BP Av.8 mmHg Min: 82 mmHg Max: 98 mmHg Temperature: Most Recent Temperature Av C Min: 35.39 C Max: 36.5 C Pulse: Pulse Av.4 Min: 85 Max: 94 Respirations: Resp Av.9 Min: 16 Max: 18 SpO2: SpO2 Av.1 % Min: 97 % Max: 100 % General: Resting in bed, in no acute distress Eyes: No conjunctival icterus, conjunctiva non-injected Oropharynx: Moist mucus membranes, no erythema Lungs: No respiratory distress Heart: Physiologic rate and rhythm Abdomen: Soft, non-tender, mild distension : Deferred Extremities: No edema Neuro: No focal deficits LABS: Labs reviewed as indicated below: Lab results within last 7 days (see chart for full results) Units 01/23/25 0532 01/22/25 0551 01/21/25 0650 Protein g/dL 4.9* 4.9* 4.8* Bilirubin, Total mg/dL 2.2* 2.9* 1.7* Alkaline Phosphatase U/L 203* 200* 181* AST U/L 89* 61* 56* ALT U/L 35 33 35 Lab results within last 7 days (see chart for full results) Units 01/23/25 0532 01/22/25 0551 01/21/25 1532 HGB g/dL 7.7* 8.2* 8.2* HCT % 23.4* 24.7* 24.7* WBC K/uL 4.44 4.48 5.11 PLT K/uL 56* 52* 46* MELD 3.0: 25 at 01/23/2025 5:32 AM Calculated from: Serum Creatinine: 1.1 mg/dL at 01/23/2025 5:32 AM Serum Sodium: 127 mmol/L at 01/23/2025 5:32 AM Total Bilirubin: 2.2 mg/dL at 01/23/2025 5:32 AM Serum Albumin: 2.1 g/dL at 01/23/2025 5:32 AM INR(ratio): 1.9 at 01/23/2025 5:32 AM Age at listing (hypothetical): 59 years Sex: Male at 01/23/2025 5:32 AM IMAGING: CTA TAVR GATED STUDY Result Date: 01/21/2025 IMPRESSION 1. There is a tri-leaflet aortic valve. There is aortic valve leaflet thickening and calcification with associated motion restriction. The aortic valve area/aperture is approximately 2.5-2.6 square centimeters. 2. Cirrhosis and portal hypertension with moderate ascites. 3. Suspected hepatocellular carcinoma better assessed on prior MRI. 4. Additional findings as above. IMPRESSION: Patient has refractory ascites requiring frequent paracentesis (up to every 5 days). His picayune MELD score is at 16 Meld 3.0 score of 25. Interval repeat TTE continues to show moderate . Patient previously evaluated by transplant and was awaiting further cardiac workup which has been completed. Given his high MELD he would benefit from a transplant evaluation prior to candidacy for TIPS for which transplant surgery consult has been placed. He has had notable decline in functional status with significant frailty which may overall affect his candidacy for transplant. Additionally noted to have peritoneal studies consistent with SBP, started on appropriate abx coverage. After further discussion with Cardiology team, the patient's aortic stenosis does not appear nona a barrier for his TIPS, however, it would likely be too high risk for transplant surgery. However, aortic stenosis is not significant enough and would be too high risk for TAVR at this time. We will plan for further multidisciplinary discussions with transplant surgery team an Cardiology team. The patient's picayune MELD score has been trending around 18, indicating he may have a higher risk fordecompensation following TIPS. Decompensated [facility] cirrhosis MELD 25 ([place] MELD 18) Refractory Ascites HCC ( two lesions in right hepatic lobe 2.8 x 2.4 and 1.1 x 1.2 cm (both LIRADS 5)) s/p bland embolization 08/21 and TACE 05/22 with repeat MRI 10/2024 with residual/recurrent tumor currently on SBRT (2/5 completed) RECOMMENDATIONS/PLAN: - Will plan for further discussion with Transplant surgery and Cardiology team - Consider evaluation for repeat paracentesis, last para 01/17 - If good fluid pocket, please send cell count and diff, albumin, protein, and culture - Avoid B-Blockade - c/w Midodrine 15 TID (MAP goal >75) - c/w Lactulose - titrate to 3-5 liquid loose BM per day - cw Rifaximin 550 BID - c/w guest experience captain Torsemide 10 QD (previously intolerant of Furosemide/Aldactone) - Completed 5 day course CTX, now on cipro 500mg - recommend Fluid restriction for hyponatremia (2000 ml) if Na <125 - Daily MELD 3.0 labs - PT/OT and ui application developer following - Hepatology to continue following I have discussed the case with my attending, Dr Hansen Attending Attestation: I have discussed the patient's management with the medical trainee and agree with the note. Please refer to the documented findings and plan of care. The patient's bedside service today consisted of an evaluation. I was present and confirmed the findings of the history and exam. We had extensive discussions with cardiac surgery as well as IR to determine patient's risks status as well as to determine the preemptive need for TAVR. Consensus among us and the Transplant surgery is to proceed with TIPS. * Stephanie Brenner DO - 01/23/2025 6:30 AM EDT PROGRESS NOTE - Resident - Medicine [facility] [place] [address] Name: Satish Spencer Location: [facility] B331/A Date: 01/23/2025 Time: 11:34 AM Date of admission: 01/14/2025 Overnight: No acute events. Today: On evaluation this morning patient continues to endorse that he is feeling great. Denies fevers, chills, chest pain, shortness of breath, nausea, vomiting, abdominal pain, dysuria. He continues to state that his abdomen does not feel full. Denies shortness of breath or any increased work of breathing. Denies pain with inspiration. He notes that the pain he had from his rib fractures is essentially resolved. He states that his lightheadedness upon standing is unchanged or if anything slightly improved. He notes some fatigue but states that he has not slept very well the past two nights.Denies feeling confused. Denies hallucinations. PHYSICAL EXAMINATION: Most Recent Vital Signs: BP: 93 mmHg/57 mmHg (01/23/25942) Pulse: 89 (01/23/25942) Resp: 18 (01/23/25942) Temp: 36.28 C (01/23/25942) Temp Summary: Temp Min: 35.4 °C (95.7 °F) Max: 36.5 °C (97.7 °F) SpO2: 99 % (01/23/25942) O2 flow rate: Supplemental O2 Delivery: Room Air, None (01/23/25942) Intake/Output: Intake/Output Summary (Last 24 hours) at 01/23/2025 1134 Last data filed at 01/23/2025 0927 Gross per 24 hour Intake 1380 ml Output 900 ml Net 480 ml Weight: Patient Vitals for the past 72 hrs: Weight 01/23/25 0507 106.1 kg (233 lb 14.5 oz) 01/22/25 0617 104.7 kg (230 lb 13.2 oz) General: Chronically ill appearing middle aged male laying in the bed in no acute distress HEENT: mucous membranes pink and moist CV: regular rate and rhythm, murmur noted Resp: clear to auscultation no wheezes, no rhonchi, no rales Abdomen: soft, no tenderness to palpation all four quadrants, paracentesis site with bandage that is clean, dry, intact. Extremities: no edema BLE Skin: warm and dry Neuro: awake, alert, oriented x3, moves all extremities in the bed Psych: appropriate affect Peripheral Line Left;Lower Arm 24 Gauge (Active) Number of days: 7 Peripheral Line Right Antecubital 20 Gauge (Active) Number of days: 3 Laboratory Values: reviewed. INR 1.9 PT 21.7 Na 127 increased from 125 yesterday K 4.5 CO2 22 Creat 1.1 AST 88 ALT 35 ALP 203 T bili 2.2 Albumin 2.1 Wbc 4.44, hgb 7.7 from 8.2 yesterday, hct 23.4 from 24.7 yesterday, plt 56 from 52 yesterday MELD 3.0: 25 at 01/23/2025 5:32 AM Calculated from: Serum Creatinine: 1.1 mg/dL at 01/23/2025 5:32 AM Serum Sodium: 127 mmol/L at 01/23/2025 5:32 AM Total Bilirubin: 2.2 mg/dL at 01/23/2025 5:32 AM Serum Albumin: 2.1 g/dL at 01/23/2025 5:32 AM INR(ratio): 1.9 at 01/23/2025 5:32 AM Age at listing (hypothetical): 59 years Sex: Male at 01/23/2025 5:32 AM Radiographic Studies: reviewed. 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 * POA = Present On Admission I have examined the patient and consistent with the dietitian's findings found malnutrition presentof Moderate (01/15/25 1527) degree. This is consistent with such due to Fat loss;Muscle loss;Inadequate energy intake (01/15/25 1527). I have also reviewed and agree with the dietitian's plan of carewhich include Monitored NPO/clear liquid status (01/15/25 1527). aStish Spencer is a 59 year old [facility] cirrhosis, HCC who was transferred from [facility] for evaluation and treatment of SBP, pleural effusion s/p chest tube placement, and ascites requiring increasingly frequent paracentesis. He was transferred for evaluation for possible TIPS. DIFFERENTIAL DIAGNOSIS AND PLAN OF CARE: Decompensated MASH cirrhosis Ascites s/p paracentesis 01/17/2025 SBP-resolved Chronic hyponatremia Chronic Hypotension Patient with worsening ascites requiring frequent paracentesis. Patient transferred for potential TIPS evaluation. Patient with worsening hypotension to 70s systolic yesterday afternoon. - Hepatology and transplant teams following for transplant candidacy workup and possible TIPS workup if indicated. Awaiting final decision. -Continue lactulose. Will titrate for goal 3-5 per day. -continue rifaximin 550mg BID -Treatment for SBP with ceftriaxone 2g Q 24 hours x 5 days total has been completed (end date: 01/19/25. -Continue ciprofloxacin 500mg PO daily for prophylaxis of SBP - continue midodrine 15mg TID per hepatology recommendation -Dentistry consult completed -Continue torsemide 10mg daily -Will start spironolactone 12.5mg daily -will continue daily fluid restriction to 1500ml -general surgery has evaluated; reports sutures to patient's umbilicus should stay in -If patient is deemed not to be a TIPS candidate at the time will plan for discharge out when stable with adjustment of his diuretic regimen per his blood pressure and labs with close follow-up. Left pleural effusion-stable Left rib fractures-pain resolved S/p chest tube removal by thoracic surgery on 01/15/25. Pleural effusion transudative 2/2 ascites. Patient respiratory status has been stable thus far. Acute on Chronic anemia Thrombocytopenia-improving Patient denies bleeding. No evidence of bleeding clinically. - s/p transfusion with 1 u prbcs on 01/21/25 with appropriate response -Thrombocytopenia improving, will restart lovenox today Chronic problems: - BPH: increased guest experience captain flomax to 0.8mg daily given concern for difficulty urinating earlier in the week - gout: continue guest experience captain allopurinol - GERD: continue guest experience captain omeprazole - HLD: continue guest experience captain atorvastatin - DM: lantus 8 qam, MDSS with meals only, CC 1:15 Diet: Orders Placed This Encounter Procedures Adult Complex Diet : Consistent Carbohydrate - 4 Choices (60 grams) --- Fluid Restriction (ml): 1500 VTE Prophylaxis: Enoxaparin Lines and Tubes: Peripheral Line Left;Lower Arm 24 Gauge (Active) Number of days: 7 Peripheral Line Right Antecubital 20 Gauge (Active) Number of days: 3 PT/OT: consulted Anticipated Date of Discharge: Code Status: Code Status: Full Code Patient discussed with Dr. Craig, attending physician. Cosigned by Issac Craig MD at 01/23/2025 1:51 PM EDT Associated attestation - Issac Craig MD - 01/23/2025 1:51 PM EDT I saw and evaluated the patient today. I have reviewed the resident/fellow physician note and agree. I spent a total of 42 minutes coordinating, documenting, and providing care for this patient excluding time spent in the performance of separately billed services or time spent by another provider/QHP. * Dony Hansen MD - 01/22/2025 8:15 AM EDT Images from the original note were not included. PROGRESS NOTE - Hepatology Service [address] [id number] Name: Satish Spencer Location: [facility] [place] B331/A Date: 01/22/2025 Time: 8:15 AM SUBJECTIVE: The patient was seen and examined, chart reviewed. No acute events overnight. This morning on exam, the patient states he was feeling "very good" and felt like his strength was improving each day. He denied any acute complaints or concerns. ROS: As above otherwise negative OBJECTIVE: Vital Signs Last 24 Hours: Systolic BP: Most Recent Systolic BP Av.6 mmHg Min: 79 mmHg Max: 95 mmHg Temperature: Most Recent Temperature Av.2 C Min: 36.11 C Max: 36.28 C Pulse: Pulse Av.1 Min: 89 Max: 97 Respirations: Resp Av.9 Min: 17 Max: 18 SpO2: SpO2 Av.6 % Min: 99 % Max: 100 % General: Resting in bed, in no acute distress Eyes: No conjunctival icterus, conjunctiva non-injected Oropharynx: Moist mucus membranes, no erythema Lungs: No respiratory distress Heart: Physiologic rate and rhythm Abdomen: Soft, mild distension : Deferred Extremities: No edema Neuro: No focal deficits LABS: Labs reviewed as indicated below: Lab results within last 7 days (see chart for full results) Units 01/22/25 0551 01/21/25 0650 01/20/25 0644 Protein g/dL 4.9* 4.8* 5.0* Bilirubin, Total mg/dL 2.9* 1.7* 1.9* Alkaline Phosphatase U/L 200* 181* 189* AST U/L 61* 56* 64* ALT U/L 33 35 38 Lab results within last 7 days (see chart for full results) Units 01/22/25 0551 01/21/25 1532 01/21/25 0650 HGB g/dL 8.2* 8.2* 6.8* HCT % 24.7* 24.7* 20.6* WBC K/uL 4.48 5.11 4.36 PLT K/uL 52* 46* 49* MELD 3.0: 27 at 01/22/2025 5:51 AM Calculated from: Serum Creatinine: 1.1 mg/dL at 01/22/2025 5:51 AM Serum Sodium: 125 mmol/L at 01/22/2025 5:51 AM Total Bilirubin: 2.9 mg/dL at 01/22/2025 5:51 AM Serum Albumin: 2.2 g/dL at 01/22/2025 5:51 AM INR(ratio): 1.9 at 01/22/2025 5:51 AM Age at listing (hypothetical): 59 years Sex: Male at 01/22/2025 5:51 AM IMAGING: CTA TAVR GATED STUDY Result Date: 01/21/2025 IMPRESSION 1. There is a tri-leaflet aortic valve. There is aortic valve leaflet thickening and calcification with associated motion restriction. The aortic valve area/aperture is approximately 2.5-2.6 square centimeters. 2. Cirrhosis and portal hypertension with moderate ascites. 3. Suspected hepatocellular carcinoma better assessed on prior MRI. 4. Additional findings as above. IMPRESSION: Patient has refractory ascites requiring frequent paracentesis (up to every 5 days). His picayune MELD score is at 16 Meld 3.0 score of 25. Interval repeat TTE continues to show moderate . Patient previously evaluated by transplant and was awaiting further cardiac workup which has been completed. Given his high MELD he would benefit from a transplant evaluation prior to candidacy for TIPS for which transplant surgery consult has been placed. He has had notable decline in functional status with significant frailty which may overall affect his candidacy for transplant. Additionally noted to have peritoneal studies consistent with SBP, started on appropriate abx coverage. After further discussion with Cardiology team, the patient's aortic stenosis does not appear nona a barrier for his TIPS, however, it would likely be too high risk for transplant surgery. However, aortic stenosis is not significant enough and would be too high risk for TAVR at this time. Decompensated [facility] cirrhosis MELD 27 Refractory Ascites HCC ( two lesions in right hepatic lobe 2.8 x 2.4 and 1.1 x 1.2 cm (both LIRADS 5)) s/p bland embolization 08/21 and TACE 05/22 with repeat MRI 10/2024 with residual/recurrent tumor currently on SBRT (12/04 completed) RECOMMENDATIONS/PLAN: - Plan for further multidisciplinary discussions with transplant surgery team given concerns regarding aortic valve for possible transplant surgery - Avoid B-Blockade - c/w Midodrine 15 TID (MAP goal >75) - c/w Lactulose - titrate to 3-5 liquid loose BM per day - cw Rifaximin 550 BID - c/w guest experience captain Torsemide 20 QD (previously intolerant of Furosemide/Aldactone) - Completed 5 day course CTX, now on cipro 500mg - recommend Fluid restriction for hyponatremia (2000 ml) if Na <125 - Daily MELD 3.0 labs - PT/OT and ui application developer following - Hepatology to continue following I have discussed the case with my attending, Dr Hansen Attending Attestation: I have discussed the patient's management with the medical trainee and agree with the note. Please refer to the documented findings and plan of care. The patient's bedside service today consisted of an evaluation. I was present and confirmed the findings of the history and exam. * Stephanie Brenner DO - 01/22/2025 6:37 AM EDT PROGRESS NOTE - Resident - Medicine [facility] [place]-[address] [address] Name: Satish Spencer Location: [facility] [place] B331/A Date: 01/22/2025 Time: 10:53 AM Date of admission: 01/14/2025 Overnight: No acute events. Today: On evaluation this morning patient states that he feels "better than ever". Denies fevers, chills, chest pain, shortness of breath, nausea, vomiting, abdominal pain, dysuria. He states that his abdomen does not feel full. He states that his breathing feels better than it has in a long time. He states that his lightheadedness upon standing is unchanged. He states that he feels stronger and notes that he has been up with the walker and using the bathroom for the first time in a while. PHYSICAL EXAMINATION: Most Recent Vital Signs: BP: 90 mmHg/55 mmHg (01/22/25 1036) Pulse: 87 (01/22/25 1036) Resp: 18 (01/22/25 1036) Temp: 36.39 C (01/22/25 1036) Temp Summary: Temp Min: 36.1 °C (97 °F) Max: 36.4 °C (97.5 °F) SpO2: 100 % (01/22/25 1036) O2 flow rate: Supplemental O2 Delivery: Room Air, None (01/22/25 1036) Intake/Output: Intake/Output Summary (Last 24 hours) at 01/22/2025 1053 Last data filed at 01/22/2025 0418 Gross per 24 hour Intake 873.83 ml Output 200 ml Net 673.83 ml Weight: Patient Vitals for the past 72 hrs: Weight 01/22/25 0617 104.7 kg (230 lb 13.2 oz) 01/20/25 0151 106.7 kg (235 lb 3.7 oz) General: Chronically ill appearing middle aged male laying in the bed in no acute distress HEENT: mucous membranes pink and moist CV: regular rate and rhythm, murmur noted Resp: clear to auscultation no wheezes, no rhonchi, no rales Abdomen: soft, distended, no tenderness to palpation, paracentesis site with bandage that is clean,dry, intact. Extremities: no edema BLE Skin: warm and dry Neuro: awake, alert, oriented, moves all extremities in the bed Psych: appropriate affect Peripheral Line Left;Lower Arm 24 Gauge (Active) Number of days: 6 Peripheral Line Right Antecubital 20 Gauge (Active) Number of days: 2 Laboratory Values: reviewed. INR 1.9 PT 22.4 Na 125 decreased from 127 yesterday K 3.7 CO2 22 Creat 1.1 AST 61 ALT 33 ALP 200 T bili 2.9 Albumin 2.2 MELD 3.0: 27 at 01/22/2025 5:51 AM Calculated from: Serum Creatinine: 1.1 mg/dL at 01/22/2025 5:51 AM Serum Sodium: 125 mmol/L at 01/22/2025 5:51 AM Total Bilirubin: 2.9 mg/dL at 01/22/2025 5:51 AM Serum Albumin: 2.2 g/dL at 01/22/2025 5:51 AM INR(ratio): 1.9 at 01/22/2025 5:51 AM Age at listing (hypothetical): 59 years Sex: Male at 01/22/2025 5:51 AM Radiographic Studies: reviewed. 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 * POA = Present On Admission I have examined the patient and consistent with the dietitian's findings found malnutrition presentof Moderate (01/15/25 1527) degree. This is consistent with such due to Fat loss;Muscle loss;Inadequate energy intake (01/15/25 1527). I have also reviewed and agree with the dietitian's plan of carewhich include Monitored NPO/clear liquid status (01/15/25 1527). Satish Spencer is a 59 year old [facility] cirrhosis, HCC who was transferred from [facility] for evaluation and treatment of SBP, pleural effusion s/p chest tube placement, and ascites requiring increasingly frequent paracentesis. He was transferred for evaluation for possible TIPS. DIFFERENTIAL DIAGNOSIS AND PLAN OF CARE: Decompensated [facility] cirrhosis-stable Ascites s/p paracentesis 01/17/2025 SBP-resolved Chronic hyponatremia Chronic Hypotension Patient with worsening ascites requiring frequent paracentesis. Patient transferred for potential TIPS evaluation. Patient with worsening hypotension to 70s systolic yesterday afternoon. - Hepatology and transplant teams following for transplant candidacy workup and possible TIPS workup if indicated. Awaiting final decision. -Continue lactulose. Will titrate for goal 3-5 per day. -continue rifaximin 550mg BID -Treatment for SBP with ceftriaxone 2g Q 24 hours x 5 days total has been completed (end date: 01/19/25. -Continue ciprofloxacin 500mg PO daily for prophylaxis of SBP - continue midodrine 15mg TID per hepatology recommendation -Dentistry consult completed -Will give one dose of torsemide 10mg once today -will continue daily fluid restriction to 1500ml -general surgery has evaluated; reports sutures to patient's umbilicus should stay in -If patient is deemed not to be a TIPS candidate at the time will plan for discharge out when stable with adjustment of his diuretic regimen per his blood pressure and labs with close follow-up. Left pleural effusion-stable Left rib fractures S/p chest tube removal by thoracic surgery on 01/15/25. Pleural effusion transudative 2/2 ascites. Patient respiratory status has been stable thus far. Acute on Chronic anemia Thrombocytopenia-worsening Patient denies bleeding. No evidence of bleeding clinically. - Hgb 6.8 on labs s/p transfusion with 1 u prbcs on 01/21/25 with appropriate response -Holding lovenox for thrombocytopenia Chronic problems: - BPH: increased guest experience captain flomax to 0.8mg daily given concern for difficulty urinating earlier in the week - gout: continue guest experience captain allopurinol - GERD: continue guest experience captain omeprazole - HLD: continue guest experience captain atorvastatin - DM: lantus 8 qam, MDSS with meals only, CC 1:10 Diet: Orders Placed This Encounter Procedures Adult Complex Diet : Consistent Carbohydrate - 4 Choices (60 grams) --- Fluid Restriction (ml): 1500 VTE Prophylaxis: This patient does not have an active medication from one of the medication groupers. (held) Lines and Tubes: Peripheral Line Left;Lower Arm 24 Gauge (Active) Number of days: 6 Peripheral Line Right Antecubital 20 Gauge (Active) Number of days: 2 PT/OT: consulted Anticipated Date of Discharge: Code Status: Code Status: Full Code Patient discussed with Dr. Craig, attending physician. Cosigned by Issac Criag MD at 01/22/2025 1:01 PM EDT Associated attestation - Issac Craig MD - 01/22/2025 1:01 PM EDT I saw and evaluated the patient today. I have reviewed the resident/fellow physician note and agree. Satish Spencer is a 59 year old male admitted for decompensated [facility] cirrhosis. Hepatology following. Appreciated recommendations regarding TIPS. Not a candidate for TAVR per Cardiology. Attempting tooptimize diuretic regimen today. I spent a total of 39 minutes coordinating, documenting, and providing care for this patient excluding time spent in the performance of separately billed services or time spent by another provider/QHP. * Juan Herrera DO - 01/21/2025 12:21 PM EDT Brief Cardiology Note: Date of initial consult: 01/18/24 Reason for consult: evaluation pre-TIPS Patient Summary: 59 YO M admitted with decompensated cirrhosis. Cardiology has been consulted for preoperative risk stratification PM[facility] includes: [facility] c/b ascites, HE, and EV requiring scheduled paracentesis Hepatocellular carcinoma s/p embolization and SBRT Moderate aortic stenosis Mild MR Dyslipidemia IDDM2 H/o EtOH use disorder BP 88/56 | Pulse 91 | Temp 36.2 °C (97.2 °F) | Resp 18 | Ht 1.778 m (5' 10") | Wt 106.7 kg (235 lb 3.7 oz) | SpO2 100% | BMI 33.75 kg/m² | BSA 2.3 m² Gen: chronically ill CV: 2/6 RAHAT loudest at RUSB, warm and well perfused Lungs: breathing comfortably on RA, no audible wheeze Peripheral vascular: cap refill <2, radial 2/4 Neuro: AAOx3 TTE 01/16/25 Interpretation Summary The examination is adequate to evaluate the referral indication. The qualitative LV ejection fraction is 60-64% (normal). No LV segmental wall motion abnormalities. The right ventricular cavity size is normal (basal dimension < 4.2 cm RV apical 4 chamber view). The right ventricular systolic function is qualitatively normal. Moderate aortic valve stenosis is present. NM SPECT MPI Lexiscan 11/26/24 Interpretation Summary The pharmacologic myocardial perfusion imaging is normal without evidence of scar or inducible ischemia. Gated SPECT imaging reveals normal myocardial thickening and wall motion. The left ventricular ejection fraction was calculated to be > 70% Assessment and recommendations: Pre-operative risk stratification for TIPS vs transplant Moderate Moderate presents a prohibitive surgical risk as Pt would poorly tolerate large fluid shifts. Discussed case with Structural heart disease team in detail. Aortic valve calcium score is around 400,typically 2000 is what is ideally what is needed to guarantee successful TAVR so that the valve does not migrate. Valve migration can be a fatal event. TAVR is also not indicated for moderate aortic s tenosis. He would be high-risk for TAVR in an of itself due to cirrhosis. Patient presents prohibitive cardiovascular risk for liver transplantation TIPS procedure can be pursued with the knowledge that it may cause congestive heart failure. Risk is not prohibitive for TIPS procedure Patient was seen and discussed with attending physician Dr. Flowers Will sign-off at this time. Thank you for allowing us to participate in the care of this patient. Please call with any questions. Juan Herrera DO Cardiovascular Disease Fellow, PGY-4 Cosigned by Sania Flowers DO at 01/22/2025 6:27 PM EDT Associated attestation - Sania Flowers DO - 01/22/2025 6:27 PM EDT I saw and evaluated the patient 01/21/2025. I have reviewed the resident/fellow physician note and agree. 59 year old male with MASH cirrhosis with ascites/hepatic encpehalopathy/esophageal varices, HCC, and moderate admitted with decompensated cirrhosis and being considered for TIPS/liver transplantation. From a cardiac standpoint, patient is not a candidate for liver transplantation at this time due presence of aortic stenosis (Vmax 3.8 m/s). Patient case and imaging reviewed with structural heart team. AV calcium score not consistent with severe (calcium score ~ 400). Greater risk of valve embolization. Additionally, TAVR procedure itself poses higher risk in the setting of coagulapathy related to cirrhosis. TIPS procedure remains an option, though it too poses higher risk of cardiovascular decompensation post-procedurally. I spent a total of 45 minutes coordinating, documenting, and providing care for this patient excluding time spent in the performance of separately billed services or time spent by another provider/QHP. * Dony Hansen MD - 01/21/2025 8:03 AM EDT Images from the original note were not included. PROGRESS NOTE - Hepatology Service [address] [address] Name: Satish Spencer Location: [facility] [place] B331/A Date: 01/21/2025 Time: 8:03 AM SUBJECTIVE: The patient was seen and examined, chart reviewed. No acute events overnight. The patient states he has been able to ambulate around had no he had complaints or concerns this morning. ROS: As above otherwise negative OBJECTIVE: Vital Signs Last 24 Hours: Systolic BP: Most Recent Systolic BP Av.5 mmHg Min: 90 mmHg Max: 93 mmHg Temperature: Most Recent Temperature Av.5 C Min: 36.33 C Max: 36.61 C Pulse: Pulse Av Min: 97 Max: 99 Respirations: Resp Av.5 Min: 16 Max: 18 SpO2: SpO2 Av.5 % Min: 97 % Max: 99 % General: Resting in bed, in no distress Eyes: No conjunctival icterus, conjunctiva non-injected Oropharynx: Moist mucus membranes, no erythema Lungs: No respiratory distress Heart: Physiologic rate and rhythm Abdomen: Soft, non-tender, non-distended, normoactive bowel sounds present in all four quadrants : Deferred Extremities: No edema Neuro: No focal deficits LABS: Labs reviewed as indicated below: Lab results within last 7 days (see chart for full results) Units 01/21/25 0650 01/20/25 0644 01/19/25 0804 Protein g/dL 4.8* 5.0* 5.0* Bilirubin, Total mg/dL 1.7* 1.9* 2.0* Alkaline Phosphatase U/L 181* 189* 211* AST U/L 56* 64* 75* ALT U/L 35 38 43 Lab results within last 7 days (see chart for full results) Units 01/21/25 0650 01/20/25 0644 01/18/25 0915 HGB g/dL 6.8* 7.2* 8.0* HCT % 20.6* 21.7* 24.3* WBC K/uL 4.36 5.54 5.81 PLT K/uL 49* 54* 78* MELD 3.0: 25 at 01/21/2025 6:50 AM Calculated from: Serum Creatinine: 1.2 mg/dL at 01/21/2025 6:50 AM Serum Sodium: 127 mmol/L at 01/21/2025 6:50 AM Total Bilirubin: 1.7 mg/dL at 01/21/2025 6:50 AM Serum Albumin: 2.4 g/dL at 01/21/2025 6:50 AM INR(ratio): 2 at 01/21/2025 6:50 AM Age at listing (hypothetical): 59 years Sex: Male at 01/21/2025 6:50 AM IMAGING: CTA TAVR GATED STUDY Result Date: 01/21/2025 IMPRESSION 1. There is a tri-leaflet aortic valve. There is aortic valve leaflet thickening and calcification with associated motion restriction. The aortic valve area/aperture is approximately 2.5-2.6 square centimeters. 2. Cirrhosis and portal hypertension with moderate ascites. 3. Suspected hepatocellular carcinoma better assessed on prior MRI. 4. Additional findings as above. IMPRESSION: Patient has refractory ascites requiring frequent paracentesis (up to every 5 days). His picayune MELD score is at 16 Meld 3.0 score of 25. Interval repeat TTE continues to show moderate . Patient previously evaluated by transplant and was awaiting further cardiac workup which has been completed. Given his high MELD he would benefit from a transplant evaluation prior to candidacy for TIPS for which transplant surgery consult has been placed. He has had notable decline in functional status with significant frailty which may overall affect his candidacy for transplant. Additionally noted to have peritoneal studies consistent with SBP, started on appropriate abx coverage. After further discussion with Cardiology team, the patient's aortic stenosis does not appear nona a barrier for his TIPS, however, it would likely be too high risk for transplant surgery. Additionally, aortic stenosis is not significant enough and would be too high risk for TAVR at this time. Decompensated MASH cirrhosis MELD 25 Refractory Ascites HCC ( two lesions in right hepatic lobe 2.8 x 2.4 and 1.1 x 1.2 cm (both LIRADS 5)) s/p bland embolization 08/21 and TACE 05/22 with repeat MRI 10/2024 with residual/recurrent tumor currently on SBRT (2/ completed) RECOMMENDATIONS/PLAN: - Plan for further discussion with patient regarding option for TIPS given risk for decompensation and transplant likely not being an option - Avoid B-Blockade - c/w Midodrine 15 TID (MAP goal >75) - c/w Lactulose - titrate to 3-5 liquid loose BM per day - cw Rifaximin 550 BID - c/w guest experience captain Torsemide 20 QD (previously intolerant of Furosemide/Aldactone) - Completed 5 day course CTX, now on cipro 500mg - recommend Fluid restriction for hyponatremia (2000 ml) if Na <125 - Daily MELD 3.0 labs - Recommend PT/OT and ui application developer consult - Hepatology to continue following I have discussed the case with my attending, Dr Hansen Attending Attestation: I have discussed the patient's management with the medical trainee and agree with the note. Please refer to the documented findings and plan of care. The patient's bedside service today consisted of an evaluation. I was present and confirmed the findings of the history and exam. I had a detailed discussion with the transplant surgery as well as Cardiology again. * Stephanie Brenner, DO - 01/21/2025 6:23 AM EDT PROGRESS NOTE - Resident - Medicine [facility] [place]-[address] [address] Name: Satish Spencer Location: [facility] [place] B331/A Date: 01/21/2025 Time: 6:23 AM Date of admission: 01/14/2025 Overnight: No acute events. Today: On evaluation this morning patient states that he feels "great". Denies fevers, chills, chest pain, shortness of breath, nausea, vomiting, abdominal pain, dysuria. He states that his abdomen does not feel full. PHYSICAL EXAMINATION: Most Recent Vital Signs: BP: 92 mmHg/60 mmHg (01/21/25299) Pulse: 97 (01/21/25299) Resp: 18 (01/21/25299) Temp: 36.61 C (01/21/25299) Temp Summary: Temp Min: 36.3 °C (97.4 °F) Max: 36.6 °C (97.9 °F) SpO2: 99 % (01/21/25299) O2 flow rate: Supplemental O2 Delivery: Room Air, None (01/21/25299) Intake/Output: Intake/Output Summary (Last 24 hours) at 01/21/2025 0623 Last data filed at 01/20/2025 2130 Gross per 24 hour Intake 1386.31 ml Output 250 ml Net 1136.31 ml Weight: Patient Vitals for the past 72 hrs: Weight 01/20/25 0151 106.7 kg (235 lb 3.7 oz) 01/19/25 0100 105.3 kg (232 lb 2.3 oz) General: Chronically ill appearing middle aged male laying in the bed in no acute distress HEENT: mucous membranes pink and moist CV: regular rate and rhythm, murmur noted Resp: clear to auscultation no wheezes, no rhonchi, no rales Abdomen: soft, distended, no tenderness to palpation, paracentesis site with bandage that is clean,dry, intact. Extremities: trace pitting edema BLE Skin: warm and dry Neuro: awake, alert, oriented, moves all extremities in the bed Psych: appropriate affect Peripheral Line Left;Lower Arm 24 Gauge (Active) Number of days: 5 Peripheral Line Right Antecubital 20 Gauge (Active) Number of days: 1 Laboratory Values: reviewed. INR 2.0 Na 127 increased from 123 yesterday K 3.5 CO2 21 Creat 1.2 AST 56 ALT 35 ALP 181 T bili 1.7 Albumin 2.4 MELD 3.0: 26 at 01/20/2025 6:44 AM Calculated from: Serum Creatinine: 1.1 mg/dL at 01/20/2025 6:44 AM Serum Sodium: 123 mmol/L (Using min of 125 mmol/L) at 01/20/2025 6:44 AM Total Bilirubin: 1.9 mg/dL at 01/20/2025 6:44 AM Serum Albumin: 2.4 g/dL at 01/20/2025 6:44 AM INR(ratio): 1.9 at 01/20/2025 6:44 AM Age at listing (hypothetical): 59 years Sex: Male at 01/20/2025 6:44 AM Radiographic Studies: reviewed. 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 * POA = Present On Admission I have examined the patient and consistent with the dietitian's findings found malnutrition presentof Moderate (01/15/25 1527) degree. This is consistent with such due to Fat loss;Muscle loss;Inadequate energy intake (01/15/25 1527). I have also reviewed and agree with the dietitian's plan of carewhich include Monitored NPO/clear liquid status (01/15/25 1527). Satish Spencer is a 59 year old [facility] cirrhosis, HCC who was transferred from [facility] for evaluation and treatment of SBP, pleural effusion s/p chest tube placement, and ascites requiring increasingly frequent paracentesis. He was transferred for evaluation for possible TIPS. DIFFERENTIAL DIAGNOSIS AND PLAN OF CARE: Decompensated [facility] cirrhosis-stable Ascites s/p paracentesis 01/17/2025 SBP-resolved Chronic hyponatremia Chronic Hypotension Patient with worsening ascites requiring frequent paracentesis. Patient transferred for potential TIPS evaluation. Patient with worsening hypotension to 80s systolic yesterday evening. - Hepatology and transplant teams following for transplant candidacy workup and possible TIPS workup if indicated. Awaiting final decision. -Continue lactulose. Will titrate for goal 3-5 per day. -continue rifaximin 550mg BID -Treatment for SBP with ceftriaxone 2g Q 24 hours x 5 days total (end date: 01/19/25. -Continue ciprofloxacin 500mg PO daily for prophylaxis of SBP - continue midodrine 15mg TID per hepatology recommendation -CT TAVR completed last night for cardiology workup -Dentistry consult completed -Will give one dose of torsemide 10mg once today -will continue daily fluid restriction to 1500ml -will consult general surgery for evaluation of patient's abdominal sinus sutures -If patient is deemed not to be a TIPS candidate at the time will plan for discharge out when stable with adjustment of his diuretic regimen per his blood pressure and labs with close follow-up. Left pleural effusion-stable Left rib fractures S/p chest tube removal by thoracic surgery on 01/15/25. Pleural effusion transudative 2/2 ascites. Patient respiratory status has been stable thus far Acute on Chronic anemia Thrombocytopenia-worsening Patient denies bleeding. No evidence of bleeding clinically. - Hgb 6.8 on labs this morning; will transfuse with 1 u prbcs -Plt 49 this morning. Will hold lovenox. Chronic problems: - BPH: increased guest experience captain flomax to 0.8mg daily given concern for difficulty urinating earlier in the week - gout: continue guest experience captain allopurinol - GERD: continue guest experience captain omeprazole - HLD: continue guest experience captain atorvastatin - DM: lantus 10 qam, MDSS with meals only, CC 1:10 Diet: Orders Placed This Encounter Procedures Adult Complex Diet : Consistent Carbohydrate - 4 Choices (60 grams) --- Fluid Restriction (ml): 1500 VTE Prophylaxis: Enoxaparin (held) Lines and Tubes: Peripheral Line Left;Lower Arm 24 Gauge (Active) Number of days: 5 Peripheral Line Right Antecubital 20 Gauge (Active) Number of days: 1 PT/OT: consulted Anticipated Date of Discharge: Code Status: Code Status: Full Code Patient discussed with Dr. Martinez, attending physician. Cosigned by Sammy Martinez MD at 01/21/2025 6:30 PM EDT Associated attestation - Sammy Martinez MD - 01/21/2025 6:30 PM EDT I saw and evaluated the patient today. I have reviewed the resident/fellow physician note and agree. He feels OK, moving bowels, no LE edema, abd distended, tolerating room air. Attempts to maintain him on diuretic to prevent or slow re-accumulation of ascites and hepatic hydrothorax have been challenging d/t BP drop after intermittent doses of diuretic despite being on high dose midodrine w/ beta laura held. Cardiology has advised against TAVR and against Liver Transplant. Hepatology considering TIPS. Continue supportive care and attempt to optimize diuretic as able. Surgery advised leavingsutures in umbilicus. 1u prbc today for AM hgb 6.8 (no overt bleeding) with good response. Remainder per resident note. 50 minutes was spent providing care for this patient. More than half of the time was spent counseling and coordinating care for the patient. Bob elements of the counseling and coordination of care including but not limited to discussion with patient, resident physicians, nursing staff, multi disciplinary rounds including residential care officer, review of current hospitalization notes, consultation notes, labs and imaging as detailed above/below. * Dony Hansen MD - 01/20/2025 8:42 AM EDT Images from the original note were not included. PROGRESS NOTE - Hepatology Service [address] [address] Name: Satish Spencer Location: [facility] B331/A Date: 01/20/2025 Time: 7:42 AM SUBJECTIVE: The patient was seen and examined, chart reviewed. No acute events overnight. The patient states he was able to sleep comfortably and is able to ambulate up to the bathroom with the assistance of walker. He feels his abdomen has been slowly reaccumulating fluid but otherwise denied any abdominal pain, nausea, or vomiting. ROS: As above otherwise negative OBJECTIVE: Vital Signs Last 24 Hours: Systolic BP: Most Recent Systolic BP Av.6 mmHg Min: 84 mmHg Max: 105 mmHg Temperature: Most Recent Temperature Av.5 C Min: 35.72 C Max: 37.61 C Pulse: Pulse Av.7 Min: 87 Max: 98 Respirations: Resp Av.8 Min: 16 Max: 19 SpO2: SpO2 Av.8 % Min: 98 % Max: 100 % General: Resting in bed, in no distress Eyes: No conjunctival icterus, conjunctiva non-injected Oropharynx: Moist mucus membranes, no erythema Lungs: No respiratory distress Heart: Physiologic rate and rhythm Abdomen: Soft, non-tender, no distension : Deferred Extremities: No edema Neuro: No focal deficits LABS: Labs reviewed as indicated below: Lab results within last 7 days (see chart for full results) Units 01/20/25 0644 01/19/25 0804 01/18/25 0915 Protein g/dL 5.0* 5.0* 4.9* Bilirubin, Total mg/dL 1.9* 2.0* 1.8* Alkaline Phosphatase U/L 189* 211* 187* AST U/L 64* 75* 65* ALT U/L 38 43 41 Lab results within last 7 days (see chart for full results) Units 01/20/25 0644 01/18/25 0915 01/17/25 0634 HGB g/dL 7.2* 8.0* 7.7* HCT % 21.7* 24.3* 23.4* WBC K/uL 5.54 5.81 6.27 PLT K/uL 54* 78* 78* MELD 3.0: 26 at 01/20/2025 6:44 AM Calculated from: Serum Creatinine: 1.1 mg/dL at 01/20/2025 6:44 AM Serum Sodium: 123 mmol/L (Using min of 125 mmol/L) at 01/20/2025 6:44 AM Total Bilirubin: 1.9 mg/dL at 01/20/2025 6:44 AM Serum Albumin: 2.4 g/dL at 01/20/2025 6:44 AM INR(ratio): 1.9 at 01/20/2025 6:44 AM Age at listing (hypothetical): 59 years Sex: Male at 01/20/2025 6:44 AM IMAGING: No imaging results in the last 72 hours IMPRESSION: Patient has refractory ascites requiring frequent paracentesis (up to every 5 days). His picayune MELD score is at 16 Meld 3.0 score of 25. Interval repeat TTE continues to show moderate . Patient previously evaluated by transplant and was awaiting further cardiac workup which has been completed. Given his high MELD he would benefit from a transplant evaluation prior to candidacy for TIPS for which transplant surgery consult has been placed. He has had notable decline in functional status with significant frailty which may overall affect his candidacy for transplant. Additionally noted to have peritoneal studies consistent with SBP, started on appropriate abx coverage. After further discussion with Cardiology team, the patient's aortic stenosis does not appear nona a barrier for his TIPS, however we will need to discuss with transplant surgery team if this would need to be addressed prior to any transplant surgery. Decompensated [facility] cirrhosis MELD 25 Refractory Ascites HCC ( two lesions in right hepatic lobe 2.8 x 2.4 and 1.1 x 1.2 cm (both LIRADS 5)) s/p bland embolization 08/21 and TACE 05/22 with repeat MRI 10/2024 with residual/recurrent tumor currently on SBRT (2/5 completed) RECOMMENDATIONS/PLAN: - Plan to further discuss TIPS and transplant candidacy with Transplant surgery team at [facility] on 01/20 - Appreciate cardiology evaluation, will discuss further if any potential management of moderate ASis needed - Avoid B-Blockade - c/w Midodrine 15 TID (MAP goal >75) - c/w Lactulose - titrate to 3-5 liquid loose BM per day - cw Rifaximin 550 BID - c/w guest experience captain Torsemide 20 QD (previously intolerant of Furosemide/Aldactone) - Completed 5 day course CTX, now on cipro 500mg - recommend Fluid restriction for hyponatremia (2000 ml) if Na <125 - Daily MELD 3.0 labs - Recommend PT/OT and ui application developer consult - Hepatology to continue following I have discussed the case with my attending, Dr Hansen Attending Attestation: I have discussed the patient's management with the medical trainee and agree with the note. Please refer to the documented findings and plan of care. The patient's bedside service today consisted of an evaluation. I was present and confirmed the findings of the history and exam. * Stephanie Brenner DO - 01/20/2025 6:29 AM EDT PROGRESS NOTE - Resident - Medicine [facility] [address] Name: Satish Spencer Location: [facility] B331/A Date: 01/20/2025 Time: 10:35 AM Date of admission: 01/14/2025 Overnight: Patient reportedly noting abdominal pain and feeling the need to urinate and being unable to do so. Straight cath x1 per nursing with 200ml out. Today: On evaluation this morning patient states that he feels well. Denies fevers, chills, chest pain, shortness of breath, nausea, vomiting, abdominal pain, dysuria. He states that he was able to urinate this morning without difficulty. PHYSICAL EXAMINATION: Most Recent Vital Signs: BP: 105 mmHg/64 mmHg (01/20/25551) Pulse: 92 (01/20/25551) Resp: 17 (01/20/25551) Temp: 36.78 C (01/20/25551) Temp Summary: Temp Min: 35.7 °C (96.3 °F) Max: 37.6 °C (99.7 °F) SpO2: 98 % (01/20/25551) O2 flow rate: Supplemental O2 Delivery: Room Air, None (01/20/25551) Intake/Output: Intake/Output Summary (Last 24 hours) at 01/20/2025 1035 Last data filed at 01/19/2025 2300 Gross per 24 hour Intake 1288.15 ml Output 300 ml Net 988.15 ml Weight: Patient Vitals for the past 72 hrs: Weight 01/20/25 0151 106.7 kg (235 lb 3.7 oz) 01/19/25 0100 105.3 kg (232 lb 2.3 oz) 01/18/25 0603 104.2 kg (229 lb 11.5 oz) General: Chronically ill appearing middle aged male laying in the bed in no acute distress HEENT: mucous membranes pink and moist CV: regular rate and rhythm, murmur noted Resp: decreased breath sounds left lower lung field, no wheezing, no crackles otherwise Abdomen: soft, distended, no tenderness to palpation, paracentesis site is notably leaking fluid. Patient with old postoperative site with sutures still intact to the umbilicus. Extremities: no edema Skin: warm and dry Neuro: awake, alert, oriented, moves all extremities in the bed Psych: appropriate affect Peripheral Line Left;Lower Arm 24 Gauge (Active) Number of days: 4 Laboratory Values: reviewed. INR 1.9 Na 123 increased from 120 yesterday K 3.6 CO2 22 Creat 1.1 AST 64 ALT 38 ALP 189 T bili 1.9 Albumin 2.4 MELD 3.0: 26 at 01/20/2025 6:44 AM Calculated from: Serum Creatinine: 1.1 mg/dL at 01/20/2025 6:44 AM Serum Sodium: 123 mmol/L (Using min of 125 mmol/L) at 01/20/2025 6:44 AM Total Bilirubin: 1.9 mg/dL at 01/20/2025 6:44 AM Serum Albumin: 2.4 g/dL at 01/20/2025 6:44 AM INR(ratio): 1.9 at 01/20/2025 6:44 AM Age at listing (hypothetical): 59 years Sex: Male at 01/20/2025 6:44 AM Radiographic Studies: reviewed. 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 * POA = Present On Admission I have examined the patient and consistent with the dietitian's findings found malnutrition presentof Moderate (01/15/25 1527) degree. This is consistent with such due to Fat loss;Muscle loss;Inadequate energy intake (01/15/25 1527). I have also reviewed and agree with the dietitian's plan of carewhich include Monitored NPO/clear liquid status (01/15/25 1527). Satish Spencer is a 59 year old [facility] cirrhosis, HCC who was transferred from [facility] for evaluation and treatment of SBP, pleural effusion s/p chest tube placement, and ascites requiring increasingly frequent paracentesis. He was transferred for evaluation for possible TIPS. DIFFERENTIAL DIAGNOSIS AND PLAN OF CARE: Decompensated [facility] cirrhosis-stable Ascites s/p paracentesis 01/17/2025 SBP-resolved Chronic hyponatremia Chronic Hypotension Patient with worsening ascites requiring frequent paracentesis. Patient transferred for potential TIPS evaluation. Patient with worsening hypotension to 80s systolic yesterday evening. - Hepatology and transplant teams following for transplant candidacy workup and possible TIPS workup if indicated. [facility] discussion on 01/20/2025. -Continue lactulose. Will titrate for goal 3-5 per day. -continue rifaximin 550mg BID -Treatment for SBP with ceftriaxone 2g Q 24 hours x 5 days total (end date: 01/19/25. Will plan to start ciprofloxacin 500mg PO daily starting today for treatment of SBP for prophylaxis of SBP - continue midodrine 15mg TID per hepatology recommendation -500bolus NS last evening -albumin 25% 25g q8 x3 doses last dose this morning -Per cardiology, no further pre-operative work up is needed -holding torsemide 20mg qam today -will increase daily fluid restriction to 1500ml given worsening hyponatremia -If patient is deemed not to be a TIPS candidate at the time will plan for discharge out when stable with adjustment of his diuretic regimen per his blood pressure and labs with close follow-up. Left pleural effusion-stable Left rib fractures S/p chest tube removal by thoracic surgery on 01/15/25. Pleural effusion transudative 2/2 ascites. Patient respiratory status has been stable thus far Chronic anemia-stable Thrombocytopenia Patient denies bleeding. No evidence of bleeding clinically. - CBC daily Chronic problems: - BPH: increased guest experience captain flomax to 0.8mg daily given concern for difficulty urinating yesterday - gout: continue guest experience captain allopurinol - GERD: continue guest experience captain omeprazole - HLD: continue guest experience captain atorvastatin - DM: lantus 10 qam, MDSS with meals only, CC 1:10 Diet: Orders Placed This Encounter Procedures Adult Complex Diet : Consistent Carbohydrate - 4 Choices (60 grams) --- Fluid Restriction (ml): 1500 VTE Prophylaxis: Enoxaparin Lines and Tubes: Peripheral Line Left;Lower Arm 24 Gauge (Active) Number of days: 4 PT/OT: consulted Anticipated Date of Discharge: Code Status: Code Status: Full Code Patient discussed with Dr. Martinez, attending physician. Cosigned by Sammy Martinez MD at 01/20/2025 5:17 PM EDT Associated attestation - Sammy Martinez MD - 01/20/2025 5:17 PM EDT I saw and evaluated the patient today. I have reviewed the resident/fellow physician note and agree. 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 He had some mild light headedness on sitting up. Abd somewhat distended but soft. No significant edema in legs. Good response to albumin and 500cc NSS bolus. Holding torsemide today. May resume torsemide at reduce dose tomorrow. Ascites and BP have been hard to balance in terms of tolerating diuretics which is why he has not been on aldactone. Holding beta laura. Cont midodrine. Awaiting hepatology decision on TIPS. Transplant workup underway, cards eval ongoing. Will ask surgery to evaluate for suture removal at umbilicus. 50 minutes was spent providing care for this patient. More than half of the time was spent counseling and coordinating care for the patient. Bob elements of the counseling and coordination of care including but not limited to discussion with patient, resident physicians, nursing staff, multi disciplinary rounds including residential care officer, review of current hospitalization notes, consultation notes, labs and imaging as detailed above/below. * Stephanie Brenner, DO - 01/19/2025 6:38 AM EDT PROGRESS NOTE - Resident - Medicine [facility] [address] Name: Satish Spencer Location: [facility] B331/A Date: 01/19/2025 Time: 12:44 PM Date of admission: 01/14/2025 Overnight: Patient noting abdominal pain and feeling the need to urinate and being unable to do so.Straight cath x1 per nursing with 450ml out. Today: On evaluation this morning patient states that he feels well. Denies fevers, chills, chest pain, shortness of breath, nausea, vomiting, abdominal pain, dysuria. States that last night he had the urge to urinate and was unable to do so. Denies urinary discomfort at present. PHYSICAL EXAMINATION: Most Recent Vital Signs: BP: 96 mmHg/63 mmHg (01/19/25 1007) Pulse: 95 (01/19/25 1007) Resp: 19 (01/19/25 1007) Temp: 36.5 C (01/19/25 1007) Temp Summary: Temp Min: 36.2 °C (97.2 °F) Max: 36.8 °C (98.3 °F) SpO2: 100 % (01/19/25 1007) O2 flow rate: Supplemental O2 Delivery: Room Air, None (01/19/25 1007) Intake/Output: Intake/Output Summary (Last 24 hours) at 01/19/2025 1244 Last data filed at 01/19/2025 0345 Gross per 24 hour Intake 509.82 ml Output 1025 ml Net -515.18 ml Weight: Patient Vitals for the past 72 hrs: Weight 01/19/25 0100 105.3 kg (232 lb 2.3 oz) 01/18/25 0603 104.2 kg (229 lb 11.5 oz) 01/17/25 0622 106.9 kg (235 lb 10.8 oz) General: Chronically ill appearing middle aged male laying in the bed in no acute distress HEENT: mucous membranes pink and moist CV: regular rate and rhythm, murmur noted Resp: decreased breath sounds left lower lung field, no wheezing, no crackles otherwise Abdomen: soft, decreased distension compared to previous, no tenderness to palpation, dressing overparacentesis site is clean, dry, intact. No flank tenderness bilaterally. Extremities: no edema Skin: warm and dry Neuro: awake, alert, oriented, moves all extremities in the bed Psych: appropriate affect Peripheral Line Left;Lower Arm 24 Gauge (Active) Number of days: 3 Laboratory Values: reviewed. INR 1.8 Na 120 decreased from 122 yesterday K 3.6 CO2 22 Creat 1.0 AST 75 ALT 43 ALP 211 T bili 2.0 MELD 3.0: 25 at 01/19/2025 8:04 AM Calculated from: Serum Creatinine: 1 mg/dL at 01/19/2025 8:04 AM Serum Sodium: 120 mmol/L (Using min of 125 mmol/L) at 01/19/2025 8:04 AM Total Bilirubin: 2 mg/dL at 01/19/2025 8:04 AM Serum Albumin: 2.1 g/dL at 01/19/2025 8:04 AM INR(ratio): 1.8 at 01/19/2025 8:04 AM Age at listing (hypothetical): 59 years Sex: Male at 01/19/2025 8:04 AM Radiographic Studies: reviewed. 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 * POA = Present On Admission I have examined the patient and consistent with the dietitian's findings found malnutrition presentof Moderate (01/15/25 1527) degree. This is consistent with such due to Fat loss;Muscle loss;Inadequate energy intake (01/15/25 1527). I have also reviewed and agree with the dietitian's plan of carewhich include Monitored NPO/clear liquid status (01/15/25 1527). Satish Spencer is a 59 year old [facility] cirrhosis, HCC who was transferred from [facility] for evaluation and treatment of SBP, pleural effusion s/p chest tube placement, and ascites requiring increasingly frequent paracentesis. He was transferred for evaluation for possible TIPS. DIFFERENTIAL DIAGNOSIS AND PLAN OF CARE: Decompensated [facility] cirrhosis-stable Ascites s/p paracentesis 01/17/2025 SBP Chronic hyponatremia Patient with worsening ascites requiring frequent paracentesis. Patient transferred for potential TIPS evaluation. - Hepatology and transplant teams following for transplant candidacy workup and possible TIPS workup if indicated. [facility] discussion on 01/20/2025. Per GI, no need to make NPO tonight. -Continue lactulose. Will titrate for goal 3-5 per day. -continue rifaximin 550mg BID -Treatment for SBP with ceftriaxone 2g Q 24 hours x 5 days total (end date: 01/19/25. Will plan to start ciprofloxacin 500mg PO daily following treatment of SBP for prophylaxis of SBP - continue midodrine 15mg TID per hepatology recommendation -Per cardiology, no further pre-operative work up is needed -continue torsemide 20mg qam. Will HOLD Monday AM to prevent BERT development. -will increase daily fluid restriction to 1500ml given worsening hyponatremia Left pleural effusion-stable Left rib fractures S/p chest tube removal by thoracic surgery on 01/15/25. Pleural effusion transudative 2/2 ascites - Monitor respiratory status. Chronic anemia-stable Thrombocytopenia-stable Patient denies bleeding. No evidence of bleeding clinically. - CBC tomorrow Chronic problems: - BPH: continue guest experience captain flomax - gout: continue guest experience captain allopurinol - GERD: continue guest experience captain omeprazole - HLD: continue guest experience captain atorvastatin - DM: lantus 10 qam, MDSS, CC 1:10 Diet: Orders Placed This Encounter Procedures Adult Complex Diet : Consistent Carbohydrate - 4 Choices (60 grams) --- Fluid Restriction (ml): 1500 VTE Prophylaxis: Enoxaparin Lines and Tubes: Peripheral Line Left;Lower Arm 24 Gauge (Active) Number of days: 3 PT/OT: consulted Anticipated Date of Discharge: Code Status: Code Status: Full Code Patient discussed with Dr. Martinez, attending physician. Cosigned by Sammy Martinez MD at 01/19/2025 12:47 PM EDT Associated attestation - Sammy Martinez MD - 01/19/2025 12:47 PM EDT I saw and evaluated the patient today. I have reviewed the resident/fellow physician note and agree. * Gaetano Khan MD - 01/18/2025 11:13 AM EDT PROGRESS NOTE - Resident - Medicine [facility] [address] Name: Satish Spencer Location: [facility] B331/A Date: 01/18/2025 Time: 11:13 AM Date of admission: 01/14/2025 Overnight: No acute events. Today: On evaluation this morning patient states that he feels well. Had some leakage for paracentesis site that has now resolved. Denies any complaints. PHYSICAL EXAMINATION: Most Recent Vital Signs: BP: 98 mmHg/62 mmHg (01/18/25 1018) Pulse: 93 (01/18/25 1018) Resp: 19 (01/18/25 1018) Temp: 36.78 C (01/18/25 1018) Temp Summary: Temp Min: 35.6 °C (96.1 °F) Max: 36.8 °C (98.2 °F) SpO2: 100 % (01/18/25 1018) O2 flow rate: Supplemental O2 Delivery: Room Air, None (01/18/25 1018) Intake/Output: Intake/Output Summary (Last 24 hours) at 01/18/2025 1113 Last data filed at 01/18/2025 0725 Gross per 24 hour Intake 1260 ml Output 650 ml Net 610 ml Weight: Patient Vitals for the past 72 hrs: Weight 01/18/25 0603 104.2 kg (229 lb 11.5 oz) 01/17/25 0622 106.9 kg (235 lb 10.8 oz) 01/16/25 0500 107.1 kg (236 lb 1.8 oz) Constitutional: no acute distress HEENT: normal: normocephalic, atraumatic; no masses, tenderness, or adenopathy Eyes: sclera and conjunctiva normal CV: normal rate and rhythm, no murmur, gallops or rub Chest: normal respiratory effort, (+)diminished breath sounds in L lung Abdomen: soft, normal bowel sounds, no mass, no tenderness, (+) distended Extremities: no clubbing, no cyanosis, (+) trace edema Skin: warm, dry: Neuro: alert, oriented to person, place, and time, normal mental status exam Peripheral Line Left;Lower Arm 24 Gauge (Active) Number of days: 2 Laboratory Values: reviewed. INR 1.8 WBC 5.81 Hb 8 PLT 78 Na 122 K 3.7 CO2 23 Creat 0.9 Mag 1.9 Phos 2.3 AST 65 ALT 41 ALP 187 T bili 1.8 MELD 3.0: 25 at 01/18/2025 9:15 AM Calculated from: Serum Creatinine: 0.9 mg/dL (Using min of 1 mg/dL) at 01/18/2025 9:15 AM Serum Sodium: 122 mmol/L (Using min of 125 mmol/L) at 01/18/2025 9:15 AM Total Bilirubin: 1.8 mg/dL at 01/18/2025 9:15 AM Serum Albumin: 2.2 g/dL at 01/18/2025 9:15 AM INR(ratio): 1.8 at 01/18/2025 9:15 AM Age at listing (hypothetical): 59 years Sex: Male at 01/18/2025 9:15 AM Radiographic Studies: reviewed. 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 * POA = Present On Admission I have examined the patient and consistent with the dietitian's findings found malnutrition presentof Moderate (01/15/25 1527) degree. This is consistent with such due to Fat loss;Muscle loss;Inadequate energy intake (01/15/25 1527). I have also reviewed and agree with the dietitian's plan of carewhich include Monitored NPO/clear liquid status (01/15/25 1527). Satish Spencer is a 59 year old [facility] cirrhosis, HCC who was transferred from [facility] for evaluation and treatment of SBP, pleural effusion s/p chest tube placement, and ascites requiring increasingly frequent paracentesis. He was transferred for evaluation for possible TIPS. DIFFERENTIAL DIAGNOSIS AND PLAN OF CARE: Decompensated [facility] cirrhosis-stable Ascites s/p paracentesis 01/17/2025 SBP Chronic hyponatremia Patient with worsening ascites requiring frequent paracentesis. Patient transferred for potential TIPS evaluation. - Hepatology and transplant teams following for transplant candidacy workup and possible TIPS workup if indicated. MDC discussion on 01/20/2025. Will tentatively make NPO on Monday evening for possible TIPS Monday. -Continue lactulose. Will titrate for goal 3-5 per day. -continue rifaximin 550mg BID -Treatment for SBP with ceftriaxone 2g Q 24 hours x 5 days total (end date: 01/20/25. Will plan to start ciprofloxacin 500mg PO daily following treatment of SBP for prophylaxis of SBP - continue midodrine 15mg TID per hepatology recommendation -Per cardiology, no further pre-operative work up is needed -continue torsemide 20mg qam. Will HOLD Monday AM to prevent BERT development. -continue daily fluid restriction 2000ml Left pleural effusion-stable Left rib fractures S/p chest tube removal by thoracic surgery on 01/15/25. Pleural effusion transudative 2/2 ascites - Monitor respiratory status. Chronic anemia-stable Thrombocytopenia-stable Patient denies bleeding. No evidence of bleeding clinically. - CBC on Monday only (reduce iatrogenic anemia) Chronic problems: - BPH: continue guest experience captain flomax - gout: continue guest experience captain allopurinol - GERD: continue guest experience captain omeprazole - HLD: continue guest experience captain atorvastatin - DM: lantus 10 qam, MDSS, CC 1:10 Diet: Orders Placed This Encounter Procedures Adult Complex Diet : Consistent Carbohydrate - 4 Choices (60 grams) --- Fluid Restriction (ml): 1999 VTE Prophylaxis: Enoxaparin Lines and Tubes: Peripheral Line Left;Lower Arm 24 Gauge (Active) Number of days: 2 PT/OT: consulted Anticipated Date of Discharge: Code Status: Code Status: Full Code Patient discussed with Dr. Martinez, attending physician. Cosigned by Sammy Martinez MD at 01/18/2025 12:54 PM EDT Associated attestation - Sammy Martinez MD - 01/18/2025 12:54 PM EDT I saw and evaluated the patient today. I have reviewed the resident/fellow physician note and agree. * Avni Souza MD - 01/18/2025 8:08 AM EDT Images from the original note were not included. PROGRESS NOTE - Gastroenterology Service [address] [address] Name: Satish Spencer Location: [facility] B331/A Date: 01/18/2025 Time: 8:08 AM SUBJECTIVE: The patient was seen and examined, chart reviewed. No acute events overnight. The patient continued to feel significant improvement in his symptoms and had no acute complaints or concerns on exam this morning. ROS: As above otherwise negative OBJECTIVE: Vital Signs Last 24 Hours: Systolic BP: Most Recent Systolic BP Av mmHg Min: 93 mmHg Max: 109 mmHg Temperature: Most Recent Temperature Av C Min: 35.61 C Max: 36.72 C Pulse: Pulse Av.7 Min: 93 Max: 100 Respirations: Resp Av Min: 20 Max: 20 SpO2: SpO2 Av.7 % Min: 97 % Max: 100 % General: Resting comfortably Eyes: No conjunctival icterus, conjunctiva non-injected Oropharynx: Moist mucus membranes, no erythema Lungs: No respiratory distress Heart: Physiologic rate and rhythm Abdomen: Soft, non-tender, non-distended, normoactive bowel sounds present in all four quadrants : Deferred Extremities: No edema Neuro: No focal deficits LABS: Labs reviewed as indicated below: Lab results within last 7 days (see chart for full results) Units 01/17/25 0634 01/16/25 0640 01/15/25 0614 Protein g/dL 5.0* 4.9* 5.2* Bilirubin, Total mg/dL 2.1* 2.5* 3.0* Alkaline Phosphatase U/L 169* 154* 151* AST U/L 54* 49 53* ALT U/L 38 36 37 Lab results within last 7 days (see chart for full results) Units 01/17/25 0634 01/16/25 0640 01/15/25 0614 HGB g/dL 7.7* 8.1* 8.1* HCT % 23.4* 24.2* 24.6* WBC K/uL 6.27 7.39 6.84 PLT K/uL 78* 80* 80* MELD 3.0: 25 at 01/18/2025 9:15 AM Calculated from: Serum Creatinine: 0.9 mg/dL (Using min of 1 mg/dL) at 01/18/2025 9:15 AM Serum Sodium: 122 mmol/L (Using min of 125 mmol/L) at 01/18/2025 9:15 AM Total Bilirubin: 1.8 mg/dL at 01/18/2025 9:15 AM Serum Albumin: 2.2 g/dL at 01/18/2025 9:15 AM INR(ratio): 1.8 at 01/18/2025 9:15 AM Age at listing (hypothetical): 59 years Sex: Male at 01/18/2025 9:15 AM IMAGING: XR CHEST 1 VIEW Result Date: 01/16/2025 IMPRESSION No visible pneumothorax. Nearly resolved left pleural effusion. CT CHEST W CONTRAST Result Date: 01/15/2025 IMPRESSION 1. Moderate left pleural effusion with pigtail catheter terminating within the pleural space along the left anterior lung. Small left pneumothorax. 2. Partially imaged large volume ascites, increased from 12/05/2024. 3. Cirrhosis with portal hypertension. Stable posterior right hepatic lobe hypodensity with adjacent coarse calcifications. This exam was submitted to the radiology officeassistant worklist and the ordering provider will be notified that the final report is available inEPIC. XR CHEST 1 VIEW Result Date: 01/15/2025 IMPRESSION Left basilar chest tube and small left pleural effusion. Hazy left lung opacity may represent atelectasis or layering pleural effusion. 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 His picayune MELD score is at 16 Meld 3.0 score of 25. Interval repeat TTE continues to show moderate . Patient previously evaluated by transplant and was awaiting further cardiac workup which has been completed. Given his high MELD he would benefit from a transplant evaluation prior to candidacy for TIPS for which transplant surgery consult has beenplaced. He has had notable decline in functional status with significant frailty which may overall affect his candidacy for transplant. Additionally noted to have peritoneal studies consistent with SBP, started on appropriate abx coverage. After further discussion with Cardiology team, the patient's aortic stenosis does not appear nona a barrier for his tips, however we will need to discuss with transplant surgery team if this would need to be addressed prior to any transplant surgery. RECOMMENDATIONS/PLAN: - Plan to further discuss TIPS and transplant candidacy with Transplant surgery team at [facility] on 01/20 - Appreciate cardiology evaluation, no further pre-op workup at this time - Avoid B-Blockade - c/w Midodrine 15 TID (MAP goal >75) - c/w Lactulose - titrate to 3-5 liquid loose BM per day - cw Rifaximin 550 BID - c/w guest experience captain Torsemide 20 QD (previously intolerant of Furosemide/Aldactone) - c/w CTX 2g for SBP for total 5 days - recommend Fluid restriction for hyponatremia (2000 ml) if Na <125 - Daily MELD 3.0 labs - Recommend PT/OT and ui application developer consult I have discussed the case with my attending, Dr Hansen and Dr. Raya Cosigned by Wilfred Raya DO at 01/18/2025 2:10 PM EDT Associated attestation - Wilfred Raya DO - 01/18/2025 2:10 PM EDT I did not see the patient, but I have reviewed the resident/fellow physician documentation and was readily available on date of service. * Dony Hansen MD - 01/17/2025 9:47 AM EDT Images from the original note were not included. PROGRESS NOTE - Gastroenterology Service [address] [address] Name: Satish Spencer Location: [facility] B331/A Date: 01/17/2025 Time: 9:47 AM SUBJECTIVE: The patient was seen and examined, chart reviewed. Doing well today. Endorses some abdominal discomfort, but denies tenderness or pain. No other acuteconcerns ROS: As above otherwise negative OBJECTIVE: Vital Signs Last 24 Hours: Systolic BP: Most Recent Systolic BP Av.8 mmHg Min: 90 mmHg Max: 109 mmHg Temperature: Most Recent Temperature Av.9 C Min: 35.61 C Max: 36 C Pulse: Pulse Av.5 Min: 94 Max: 104 Respirations: Resp Av.4 Min: 18 Max: 20 SpO2: SpO2 Av.7 % Min: 96 % Max: 100 % General: chronically ill appearing, emaciated HEENT: normocephalic, atraumatic Thorax: S1 + S2, no murmurs, CTAB Abdomen: distended, soft, non-tender Extremities: b/l pitting edema Neurologic: Awake, Alert, and Oriented, following commands LABS: Labs reviewed as indicated below: Lab results within last 7 days (see chart for full results) Units 01/17/25 0634 01/16/25 0640 01/15/25 0614 Protein g/dL 5.0* 4.9* 5.2* Bilirubin, Total mg/dL 2.1* 2.5* 3.0* Alkaline Phosphatase U/L 169* 154* 151* AST U/L 54* 49 53* ALT U/L 38 36 37 Lab results within last 7 days (see chart for full results) Units 01/17/25 0634 01/16/25 0640 01/15/25 0614 HGB g/dL 7.7* 8.1* 8.1* HCT % 23.4* 24.2* 24.6* WBC K/uL 6.27 7.39 6.84 PLT K/uL 78* 80* 80* IMAGING: XR CHEST 1 VIEW Result Date: 01/16/2025 IMPRESSION No visible pneumothorax. Nearly resolved left pleural effusion. CT CHEST W CONTRAST Result Date: 01/15/2025 IMPRESSION 1. Moderate left pleural effusion with pigtail catheter terminating within the pleural space along the left anterior lung. Small left pneumothorax. 2. Partially imaged large volume ascites, increased from 12/05/2024. 3. Cirrhosis with portal hypertension. Stable posterior right hepatic lobe hypodensity with adjacent coarse calcifications. This exam was submitted to the radiology officeassistant worklist and the ordering provider will be notified that the final report is available inEPIC. XR CHEST 1 VIEW Result Date: 01/15/2025 IMPRESSION Left basilar chest tube and small left pleural effusion. Hazy left lung opacity may represent atelectasis or layering pleural effusion. IMPRESSION: #Decompensated MASH cirrhosis #Refractory Ascites #Hx of prior Hepatic Encephalopathy #HCC ( two lesions in right hepatic lobe 2.8 x 2.4 and 1.1 x 1.2 cm (both LIRADS 5)) s/p bland embolization 08/21 and TACE 05/22 with repeat MRI 10/2024 with residual/recurrent tumor currently on SBRT (2/5 completed) Patient has refractory ascites requiring frequent paracentesis (up to every 5 days). His picayune MELD score is at 16 Meld 3.0 score of 25. Interval repeat TTE continues to show moderate . Patient previously evaluated by transplant and was awaiting further cardiac workup which has been completed. Given his high MELD he would benefit from a transplant evaluation prior to candidacy for TIPS for which transplant surgery consult has beenplaced. He has had notable decline in functional status with significant frailty which may overall affect his candidacy for transplant. Additionally noted to have peritoneal studies consistent with SBP, started on appropriate abx coverage. RECOMMENDATIONS/PLAN: - Recommend Cardiology consult for Transplant evaluation - Recommend therapeutic paracentesis (if >5Lremoved recommend 6-8g albumin replacement for everyliter over 5L) - Hold off of TIPS at this time pending discussion with transplant team - Avoid B-Blockade - c/w Midodrine 15 TID (MAP goal >75) - c/w Lactulose - titrate to 3-5 liquid loose BM per day - cw Rifaximin 550 BID - c/w guest experience captain Torsemide 20 QD (previously intolerant of Furosemide/Aldactone) - c/w CTX 2g for SBP for total 5 days - recommend Fluid restriction for hyponatremia (2000 ml) if Na <125 - Daily MELD 3.0 labs - Recommend PT/OT and ui application developer consult I have discussed the case with my attending, Dr Hansen. Attending Attestation: I have discussed the patient's management with the medical trainee and agree with the note. Please refer to the documented findings and plan of care. The patient's bedside service today consisted of an evaluation. I was present and confirmed the findings of the history and exam. Case discussed withIR as well as Transplant surgery in detail. * Stephanie Brenner, - 01/17/2025 7:37 AM EDT PROGRESS NOTE - Resident - Medicine [facility] [address] Name: Satish Spencer Location: [facility] B331/A Date: 01/17/2025 Time: 7:37 AM Date of admission: 01/14/2025 Overnight: No acute events. Today: On evaluation this morning patient states that he feels well. He states that his abdomen feels less swollen, his breathing feels better, and he feels more clear mentally. Denies chest pain, cough, shortness of breath. Denies dysuria. Denies gum bleeding, hematochezia, melena. All systems were reviewed, all pertinent findings were documented in the HPI, otherwise negative. PHYSICAL EXAMINATION: Most Recent Vital Signs: BP: 94 mmHg/61 mmHg (01/17/25621) Pulse: 95 (01/17/25621) Resp: 20 (01/17/25621) Temp: 36 C (01/17/25621) Temp Summary: Temp Min: 35.6 °C (96.1 °F) Max: 36 °C (96.8 °F) SpO2: 96 % (01/17/25621) O2 flow rate: Supplemental O2 Delivery: Room Air, None (01/17/25621) Intake/Output: Intake/Output Summary (Last 24 hours) at 01/17/2025 0739 Last data filed at 01/17/2025 0600 Gross per 24 hour Intake 890.09 ml Output 900 ml Net -9.91 ml Weight: Patient Vitals for the past 72 hrs: Weight 01/17/25621 106.9 kg (235 lb 10.8 oz) 01/16/25 0500 107.1 kg (236 lb 1.8 oz) 01/15/25215 106.6 kg (235 lb 0.2 oz) 01/14/252013 105.8 kg (233 lb 4 oz) General: Chronically ill appearing middle aged male resting in the bed in no acute distress HEENT: slightly icteric sclera, moist mucous membranes Heart: regular rate and rhythm, systolic murmur Lungs: diminished breath sounds left base otherwise no wheezes, no rhonchi Abdomen: distended though improved from yesterday, dull to percussion, nontender to palpation Extremities: no LE edema bilaterally, intact peripheral pulses Skin: warm, dry, ecchymosis to the left lower extremity, jaundice approves somewhat improved from yesterday Neurologic: AAOx3, no focal deficits, following commands, moving all extremities spontaneously, answering questions appropriately Psych: normal affect Peripheral Line Left;Lower Arm 24 Gauge (Active) Number of days: 1 Laboratory Values: reviewed. Albumin 2.2, AST 54 elevated from 49 yesterday, ALT 38, alk phos 169 from 154 yesterday, T bili 2.1from 2.5 yesterday WBC 6.27 from 7.39 yesterday Hgb 7.7 from 8.1 yesterday Hct 23.4 from 24.2 yesterday Plt 78 from 80 yesterday Sodium 125 low, potassium 3.5, chloride 94, CO2 24, BUN 16, creatinine 1.0, AG 7, glucose 131, calcium 7.6 but corrects to 9.0 for albumin, mag 2.1, phos 2.6 MELD 3.0: 25 at 01/17/2025 6:34 AM Calculated from: Serum Creatinine: 1 mg/dL at 01/17/2025 6:34 AM Serum Sodium: 125 mmol/L at 01/17/2025 6:34 AM Total Bilirubin: 2.1 mg/dL at 01/17/2025 6:34 AM Serum Albumin: 2.2 g/dL at 01/17/2025 6:34 AM INR(ratio): 1.9 at 01/17/2025 6:34 AM Age at listing (hypothetical): 59 years Sex: Male at 01/17/2025 6:34 AM Radiographic Studies: reviewed. XR CHEST 1 VIEW Result Date: 01/16/2025 IMPRESSION No visible pneumothorax. Nearly resolved left pleural effusion. CT CHEST W CONTRAST Result Date: 01/15/2025 IMPRESSION 1. Moderate left pleural effusion with pigtail catheter terminating within the pleural space along the left anterior lung. Small left pneumothorax. 2. Partially imaged large volume ascites, increased from 12/05/2024. 3. Cirrhosis with portal hypertension. Stable posterior right hepatic lobe hypodensity with adjacent coarse calcifications. This exam was submitted to the radiology officeassistant worklist and the ordering provider will be notified that the final report is available inEPIC. XR CHEST 1 VIEW Result Date: 01/15/2025 IMPRESSION Left basilar chest tube and small left pleural effusion. Hazy left lung opacity may represent atelectasis or layering pleural effusion. 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 * POA = Present On Admission I have examined the patient and consistent with the dietitian's findings found malnutrition presentof Moderate (01/15/25 1527) degree. This is consistent with such due to Fat loss;Muscle loss;Inadequate energy intake (01/15/25 1527). I have also reviewed and agree with the dietitian's plan of carewhich include Monitored NPO/clear liquid status (01/15/25 1527). Satish Spencer is a 59 year old [facility] cirrhosis, HCC who was transferred from [facility] for evaluation and treatment of SBP, pleural effusion s/p chest tube placement, and ascites requiring increasingly frequent paracentesis. He was transferred for evaluation for possible TIPS. DIFFERENTIAL DIAGNOSIS AND PLAN OF CARE: Decompensated MASH cirrhosis-stable Ascites SBP Chronic hyponatremia-stable/improving Patient with worsening ascites requiring frequent paracentesis. Patient transferred for potential TIPS evaluation. - Hepatology and transplant teams following for transplant candidacy workup and possible TIPS workup if indicated, appreciate the recommendations given -Continue lactulose 30g TID- patient s/p 15 Bms yesterday. Will titrate for goal 3-5 per day. Patient reporting decreased abdominal distension and generally feeling improved. -continue rifaximin 550mg BID -Treatment for SBP with ceftriaxone 2g Q 24 hours x 5 days total (end date: 01/20/25 -Will plan to start ciprofloxacin 500mg PO daily following treatment of SBP for prophylaxis of SBP - continue midodrine 15mg TID per hepatology recommendation -TTE completed as part of transplant workup, shows moderate -will consult cardiology for formal evaluation per transplant surgery recommendation -will consult hospitalist consult service for consideration for possible therapeutic paracentesis -continue torsemide 20mg qam -continue daily fluid restriction 2000ml Left pleural effusion-stable Left rib fractures S/p chest tube removal by thoracic surgery on 01/15/25. Patient reporting only slight discomfort with deep inspiration, otherwise feels improved. Pleural effusion transudative. 2/2 ascites - Chest x-ray yesterday showing stable pleural effusion Chronic anemia-stable Thrombocytopenia-stable Patient denies bleeding. No evidence of bleeding clinically. - CBC daily Chronic problems: - BPH: continue guest experience captain flomax - gout: continue guest experience captain allopurinol - GERD: continue guest experience captain omeprazole - HLD: continue guest experience captain atorvastatin - DM: lantus 10 qam, MDSS, CC 1:10 Diet: Orders Placed This Encounter Procedures Adult Complex Diet : Consistent Carbohydrate - 4 Choices (60 grams) --- Fluid Restriction (ml): 1999 VTE Prophylaxis: Enoxaparin Lines and Tubes: Peripheral Line Left;Lower Arm 24 Gauge (Active) Number of days: 1 PT/OT: consulted Anticipated Date of Discharge: Code Status: Code Status: Full Code Patient discussed with Dr. Martinez, attending physician. Cosigned by Sammy Martinez MD at 01/17/2025 1:25 PM EDT Associated attestation - Sammy Martinez MD - 01/17/2025 1:25 PM EDT I saw and evaluated the patient today. I have reviewed the resident/fellow physician note and agree. * Dony Hansen MD - 01/16/2025 9:15 AM EDT Images from the original note were not included. PROGRESS NOTE - Gastroenterology Service [facility] [place] [address] Name: Satish Spencer Location: [facility] B331/A Date: 01/16/2025 Time: 9:15 AM SUBJECTIVE: The patient was seen and examined, chart reviewed. Had chest tube removed yesterday, reports feeling well, has some abdominal discomfort and pressure but otherwise denies any acute concerns. ROS: As above otherwise negative OBJECTIVE: Vital Signs Last 24 Hours: Systolic BP: Most Recent Systolic BP Av mmHg Min: 100 mmHg Max: 105 mmHg Temperature: Most Recent Temperature Av.3 C Min: 35.78 C Max: 36.72 C Pulse: Pulse Av.5 Min: 85 Max: 99 Respirations: Resp Av.5 Min: 18 Max: 19 SpO2: SpO2 Av.7 % Min: 98 % Max: 99 % General: chronically ill appearing, resting comfortably, in no acute distress HEENT: normocephalic, atraumatic Thorax: S1 + S2, no murmurs, CTAB Abdomen: distended, soft, non-tender Extremities: No edema. Neurologic: Awake, Alert, and Oriented, following commands LABS: Labs reviewed as indicated below: Lab results within last 7 days (see chart for full results) Units 01/16/25 0640 01/15/25 0614 01/14/25 2224 Protein g/dL 4.9* 5.2* 5.1* Bilirubin, Total mg/dL 2.5* 3.0* 2.8* Alkaline Phosphatase U/L 154* 151* 148* AST U/L 49 53* 51* ALT U/L 36 37 38 Lab results within last 7 days (see chart for full results) Units 01/16/25 0640 01/15/25 0614 01/14/25 2224 HGB g/dL 8.1* 8.1* 8.0* HCT % 24.2* 24.6* 24.1* WBC K/uL 7.39 6.84 9.74 PLT K/uL 80* 80* 81* IMAGING: CT CHEST W CONTRAST Result Date: 01/15/2025 IMPRESSION 1. Moderate left pleural effusion with pigtail catheter terminating within the pleural space along the left anterior lung. Small left pneumothorax. 2. Partially imaged large volume ascites, increased from 12/05/2024. 3. Cirrhosis with portal hypertension. Stable posterior right hepatic lobe hypodensity with adjacent coarse calcifications. This exam was submitted to the radiology officeassistant worklist and the ordering provider will be notified that the final report is available inEPIC. XR CHEST 1 VIEW Result Date: 01/15/2025 IMPRESSION Left basilar chest tube and small left pleural effusion. Hazy left lung opacity may represent atelectasis or layering pleural effusion. IMPRESSION: Satish Spencer is a 59 year old male with decompensated MASH cirrhosis with refractory ascites and prior hepatic encephalopathy (2 admissions for HE in 2023) and esophageal varices - currently being evaluated for liver transplant, HCC ( two lesions in right hepatic lobe 2.8 x 2.4 and 1.1x 1.2 cm (both LIRADS 5)) s/p bland embolization 08/21 and TACE 05/22 with repeat MRI 10/2024 with residual/recurrent tumor currently on SBRT (2/ completed) as bridge to transplant admitted to [facility] for evaluation for TIPS Patient has refractory ascites requiring frequent paracentesis (up to every 5 days). His picayune MELD score is at 16 Meld 3.0 score of 25. He does have aortic stenosis noted on TTE discussed with cardiology who recommend updating TTE as it may increase risk for TIPS. Patient previously evaluated by transplant and was awaiting further cardiac workup which has been completed. Given his high MELD he would benefit from a transplant evaluation prior to candidacy for TIPS for which transplant surgery consult has been placed. He has had notable decline in functional status with significant frailty which may overall affect his candidacy for transplant. Additionally noted to have peritoneal studies consistent with SBP, started on appropriate abx coverage. RECOMMENDATIONS/PLAN: - Recommend updating TTE for assessment of severity particularly given his worsening lightheadedness and dizziness - Recommend therapeutic paracentesis (if >5Lremoved recommend 6-8g albumin replacement for everyliter over 5L) - Hold off of TIPS at this time pending further workup with TTE - Avoid B-Blockade - Increase Midodrine to 15 TID (MAP goal >75) - c/w Lactulose - titrate to 3-5 liquid loose BM per day - cw Rifaximin 550 BID - c/w guest experience captain Torsemide 20 QD (previously intolerant of Furosemide/Aldactone) - c/w CTX 2g for SBP for total 5 days - recommend Fluid restriction for hyponatremia (2000 ml) - Daily MELD 3.0 labs - Recommend PT/OT and ui application developer consult I have discussed the case with my attending, Dr Hansen. Attending Attestation: I have discussed the patient's management with the medical trainee and agree with the note. Please refer to the documented findings and plan of care. The patient's bedside service today consisted of an evaluation. I was present and confirmed the findings of the history and exam. * Zohra Roman, Medical Student - 01/16/2025 6:19 AM EDT Unless the attending has added an attestation supporting use of this note to document a billable service, the signature of the Licensed Professional on this note only acknowledges the presence of thestudent's note within the patient record and the Licensed Professional's note should be referred tofor clinical information and recommendations. PROGRESS NOTE - HOSPITAL MEDICINE [address] [address] Name: Satish Spencer Location: [facility] B331/A Date: 01/16/2025 Date of admission: 01/14/2025 Hospital length of stay: 2 days Subjective Overnight Events: No acute events overnight. Refused lactulose medication last night due to concerns regarding fecal incontinence in the past. He was agreeable to taking lactulose this morning. Subjective: Patient seen and examined at bedside. Reports improving breathing and L-sided rib pain today. States that he had about 4 BM last night and 1 BM this morning. Denies any fever, chills, cough, CP, N/V/D, abdominal pain, dizziness, or weakness. All systems were reviewed, all pertinent findings were documented above, otherwise negative. Objective CONSTITUTIONAL DATA / OBJECTIVE: Vital Signs (Most Recent): Blood Pressure: 100/67 mmHg Last 12H: Most Recent Systolic BP Av mmHg Min: 100 mmHg Max: 102 mmHg Pulse: 94 Last 12H: Pulse Av.5 Min: 94 Max: 99 Temperature: 35.8 °C (96.4 °F) Last 12H: Most Recent Temperature Av.8 C Min: 35.78 C Max: 35.89 C Respiratory Rate: 18 O2 Saturation: 99 % Vital Signs (Last 24 Hours): Pulse Av.2 Min: 94 Max: 99 No data recorded Most Recent Systolic BP Av mmHg Min: 100 mmHg Max: 105 mmHg Most Recent Diastolic BP Av.2 mmHg Min: 64 mmHg Max: 69 mmHg Resp Av.4 Min: 18 Max: 19 Most Recent Temperature Av.2 C Min: 35.78 C Max: 36.72 C SpO2 Av.8 % Min: 98 % Max: 99 % Intake & Output Summary (Last 24 hours): Intake/Output Summary (Last 24 hours) at 01/16/2025 1107 Last data filed at 01/16/2025 0900 Gross per 24 hour Intake 768 ml Output 890 ml Net -122 ml Height & Weight: Height: 177.8 cm (5' 10") (01/14/252013) Weight: 107.1 kg (236 lb 1.8 oz) (01/16/25499) Weight change: 1.3 kg (2 lb 13.9 oz) Body mass index is 33.88 kg/m². Physical Examination: General: no apparent distress, awake, alert, cooperative HEENT: normocephalic and atraumatic, dry mucous membranes Heart: regular rate and rhythm; S1 and S2 present; no murmurs, rubs or gallops Pulmonary: decreased aeration to L lower base, CTAB in all other lung anne Abdomen: distended abdomen with transmitted fluid wave, abdomen is otherwise soft and non-tender with no rebound or guarding MSK: gross motor function intact Extremities: 1+ pitting edema to bilateral lower extremities Skin: mild jaundice, small bruising to anterior L knee and dorsum of L foot Neuro: AAO x3 Psych: appropriate mood and affect Peripheral Line Right Antecubital 22 Gauge (Active) Number of days: 3 Peripheral Line Left Antecubital 22 Gauge (Active) Number of days: 2 Laboratory Values: reviewed. -- Brief labs below include the 7 most recent results over the past week. Blood Gas: No results in the last 7 days - inpatent use only Chemistry Panel: Lab results within last 7 days (see chart for full results) Units 01/16/25 0640 01/15/25 0614 01/14/25 2224 01/13/25 0000 SODIUM mmol/L 126* 122* 125* -- POTASSIUM mmol/L 3.9 3.8 4.1 3.9 CHLORIDE mmol/L 94* 90* 93* -- CO2 mmol/L 22 20* 23 -- EGFR mL/min >90 >90 85 88.28 BUN mg/dL -- CREATININE mg/dL 0.9 0.9 1.0 0.98 GLUCOSE mg/dL 202* 190* 167* 139* CALCIUM mg/dL 7.9* 8.0* 7.9* -- Magnesium mg/dL 2.1 -- 2.3 -- Phosphorus mg/dL 2.6 -- -- -- ANION GAP mmol/L 10 12 9 -- Complete Blood Count: Lab results within last 7 days (see chart for full results) Units 01/16/25 0640 01/15/25 0614 01/14/25 2224 01/13/25 0000 WBC K/uL 7.39 6.84 9.74 -- HGB g/dL 8.1* 8.1* 8.0* 6.9* HCT % 24.2* 24.6* 24.1* -- PLT K/uL 80* 80* 81* -- MCV fL 103.4 102.9 103.0 -- Cardiac Studies: No results in the last 7 days - inpatent use only Coagulation Studies: Lab results within last 7 days (see chart for full results) Units 01/16/25 0909 01/15/25 0614 01/14/25 2224 Prothrombin Time seconds 21.4* 22.8* 22.9* INR 1.8* 2.0* 2.0* Liver Function Panel: Lab results within last 7 days (see chart for full results) Units 01/16/25 0640 01/15/25 0614 01/14/25 2224 Albumin g/dL 2.1* 2.2* 2.5* Protein g/dL 4.9* 5.2* 5.1* Bilirubin, Total mg/dL 2.5* 3.0* 2.8* Bilirubin, Direct mg/dL -- -- 1.2* AST U/L 49 53* 51* ALT U/L 36 37 38 Alkaline Phosphatase U/L 154* 151* 148* Infectious Studies: No results in the last 7 days - inpatent use only Cultures: reviewed. No results in the last 7 days - inpatent use only Recent Cultures (2 Weeks) No lab values to display. Radiographic Studies: reviewed. CT CHEST W CONTRAST Result Date: 01/15/2025 IMPRESSION 1. Moderate left pleural effusion with pigtail catheter terminating within the pleural space along the left anterior lung. Small left pneumothorax. 2. Partially imaged large volume ascites, increased from 12/05/2024. 3. Cirrhosis with portal hypertension. Stable posterior right hepatic lobe hypodensity with adjacent coarse calcifications. This exam was submitted to the radiology officeassistant worklist and the ordering provider will be notified that the final report is available inEPIC. XR CHEST 1 VIEW Result Date: 01/15/2025 IMPRESSION Left basilar chest tube and small left pleural effusion. Hazy left lung opacity may represent atelectasis or layering pleural effusion. Current Facility-Administered Medications: cefTRIAXone in dextrose (Rocephin) IVPB 2 g, 2 g, IV Piggyback, Q24H, Sammy Martinez MD insulin aspart (NovoLOG) inj, , Subcutaneous, With meals, Jordin, Stephanie, DO, 3 Units at 01/16/25 0854 Enoxaparin (Lovenox) inj 40 mg, 40 mg, Subcutaneous, Daily(AM), Reagan Baird MD, 40 mg at 01/16/25 0853 Insulin Glargine (Lantus) inj 10 Units, 10 Units, Subcutaneous, AM Insulin, Reagan Baird MD, 10Units at 01/16/25 0854 Lactulose (Constulose) oral soln 30 g, 30 g, Oral, Q4H, Gaetano Khan MD, 30 g at 01/16/25 0853 midodrine HCl (Proamatine) tab 10 mg, 10 mg, Oral, TID, Gaetano Khan MD, 10 mg at 01/16/25 0459 omeprazole (PriLOSEC) cap 40 mg, 40 mg, Oral, BID(AM/PM), Reagan Baird MD, 40 mg at 01/16/25 0856 Allopurinol (Zyloprim) tab 300 mg, 300 mg, Oral, Daily(AM), Reagan Baird MD, 300 mg at 856 atorvaSTATin (Lipitor) tab 20 mg, 20 mg, Oral, Daily(AM), Reagan Baird MD, 20 mg at 01/16/25 0856 dextrose 50% inj 25 mL, 25 mL, IV Push, PRN, Reagan Baird MD dextrose 50% inj 50 mL, 50 mL, IV Push, PRN, Reagan Baird MD glucagon (Glucagen) inj 1 mg, 1 mg, Intramuscular, PRN, Reagan Baird MD Glucose (Glutose 15) 40 % gel 15 g of glucose, 15 g of glucose, Oral, PRN, Reagan Baird MD Glucose (Glutose 15) 40 % gel 30 g of glucose, 30 g of glucose, Oral, PRN, Reagan Baird MD glucose chew tab 16 g, 16 g, Oral, PRN, Reagan Baird MD insulin aspart (NovoLOG) inj, , Subcutaneous, With Meals and HS, Reagan Baird MD, 2 Units at 01/16/25 0855 Lactobacillus (Culturelle) cap 1 Capsule, 1 Capsule, Oral, BID (AM/PM meals), Reagan Baird MD, 1 Capsule at 01/16/25 0856 multivitamin (Mvi) 1 Tablet, 1 Tablet, Oral, Daily Noon, Reagan Baird MD, 1 Tablet at 01/15/25 1211 rifAXIMin (Xifaxan) tab 550 mg, 550 mg, Oral, BID (AM/PM meals), Reagan Baird MD, 550 mg at 01/16/25 0856 sodium chloride 0.9 % flush/inj 3 mL, 3 mL, IV Push, PRN, Reagan Baird MD tamsulosin (Flomax) cap 0.4 mg, 0.4 mg, Oral, Daily(AM), Reagan Baird MD, 0.4 mg at 01/16/25 0856 Torsemide (Demadex) tab 20 mg, 20 mg, Oral, Daily(AM), Reagan Baird MD, 20 mg at 01/16/25 0856 Vitamin C (Ascorbic Acid) tab 1,000 mg, 1,000 mg, Oral, Daily(AM), Reagan Baird MD, 1,000 mg at01/16/25 0856 Facility-Administered Medications Ordered in Other Encounters: perflutren lipid microsphere inj SUSP 1.956 mg, 1.956 mg, Intravenous, Once PRN, Illar, Stephanie, DO, 1.956 mg at 01/16/25 1020 Assessment & Plan Assessment and Plan: Principal Problem: Decompensated hepatic cirrhosis (HCC) (POA: Yes) Active Problems: Type 2 diabetes mellitus with hemoglobin A1c goal of less than 7.0% (HCC) (POA: Yes) Thrombocytopenia (HCC) (POA: Yes) 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 * POA = Present On Admission MELD 3.0: 25 at 01/16/2025 9:09 AM Calculated from: Serum Creatinine: 0.9 mg/dL (Using min of 1 mg/dL) at 01/16/2025 6:40 AM Serum Sodium: 126 mmol/L at 01/16/2025 6:40 AM Total Bilirubin: 2.5 mg/dL at 01/16/2025 6:40 AM Serum Albumin: 2.1 g/dL at 01/16/2025 6:40 AM INR(ratio): 1.8 at 01/16/2025 9:09 AM Age at listing (hypothetical): 59 years Sex: Male at 01/16/2025 9:09 AM Satish Spencer is a 59 year old male with Hx significant for liver cirrhosis secondary to GONZALES, HCC s/p TACE (2023), HTN, HLD, and T2DM who was transferred from [facility] for evaluation for TIPS procedure in the setting of increased paracentesis frequency. 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 Volume overload has improved since yesterday. BMP this morning continues to show decreased sodium (Na 126). LFT remains abnormal with elevated AST, ALP, and bilirubin and decreasing albumin. MELD 3.0 score 25 based on labs this morning. GI recommendations Recommend updating TTE for assessment of severity particularly given his worsening lightheadedness and dizziness Recommend therapeutic paracentesis (if >5Lremoved recommend 6-8g albumin replacement for every liter over 5L) Hold off of TIPS at this time pending further workup with TTE Avoid B-Blockade Increase Midodrine to 15 TID (MAP goal >75) C/w Lactulose - titrate to 3-5 liquid loose BM per day C/w Rifaximin 550 BID C/w guest experience captain Torsemide 20 QD (previously intolerant of Furosemide/Aldactone) C/w CTX 2g for SBP for total 5 days Outside ER records show PMN > 250 cells/mm3 Plan to start PO Ciprofloxacin after patient finishes IV antibiotic course Recommend Fluid restriction for hyponatremia (2000 ml) Daily MELD 3.0 labs Recommend PT/OT and ui application developer consult Recommend transplant service consult to determine if patient is appropriate for TIPS procedure Awaiting ascitic fluid culture results from [facility] Large pleural effusion Thoracic surgery removed chest tube yesterday. Patient currently has occlusive dressing applied to chest tube site. Repeat CXR to assess for complications or worsening pleural effusion Monitor for signs and symptoms of infection Recurrent blood loss anemia Hb has been stable with most recent Hb 8.1. No current evidence of GI bleed at this time. Daily CBCs to monitor Hb levels Left lower rib fracture Patient has Hx of multiple falls for the past 2 - 3 months presumably from symptomatic orthostatic hypotension. CXR showed evidence of L sided lower rib fractures. Patient reports L rib pain has improved this morning. Conservative pain management Chronic Problems: BPH: Continue PETROLEUM INSPECTOR SUPERVISOR Tamsulosin 0.4 mg daily Chronic gout: Continue PETROLEUM INSPECTOR SUPERVISOR Allopurinol 300 mg daily GERD: Continue PETROLEUM INSPECTOR SUPERVISOR Omeprazole 40 mg BID HLD: Continue PETROLEUM INSPECTOR SUPERVISOR Atorvastatin 20 mg daily HTN: Hold PETROLEUM INSPECTOR SUPERVISOR Nadolol (contraindicated in decompensated liver cirrhosis with frequent paracentesis per [facility] records) Hypotension: Increased Midodrine from 7.5 mg TID to 10 mg TID Supplements: Continue PETROLEUM INSPECTOR SUPERVISOR multivitamin 1 tablet daily and vitamin C 1000 mg daily T2DM: Hold PETROLEUM INSPECTOR SUPERVISOR Tresiba. Start 10 units Lantus and NovoLog with meals and HS Misc: Diet: NPO except meds Bowel Regimen: Not indicated at this time Last Bowel Movement: 01/15/25 (01/15/251933) Stool Description: Large;Liquid;Loose;Brown;Yellow (01/15/251933) Sleep: No sleep protocol ordered Mcmillan: Not indicated at this time PT/OT: Not indicated at this time GI prophylaxis: Continue Omeprazole 40 mg BID VTE Prophylaxis: Lovenox 40mg q24h Code Status: Full Code Anticipated Discharge: No details at this time LINES / DRAINS / TUBES: LINES ALL Duration Drain Other-Describe Mid Abdomen 41 days Peripheral Line Right Antecubital 22 Gauge 3 days Peripheral Line Left Antecubital 22 Gauge 1 day List of services consulted/following: HEPATOLOGY CONSULT IP THORACIC SURGERY CONSULT IP ADULT PHYSICAL THERAPY CONSULT IP ADULT OCCUPATIONAL THERAPY CONSULT IP TRANSPLANT SERVICE CONSULT IP Patient was discussed with attending physician, MD Zohra Beck, Medical Student Cosigned by Sammy Martinez MD at 01/16/2025 3:41 PM EDT Associated attestation - Sammy Martinez MD - 01/16/2025 3:41 PM EDT I attest that I have reviewed the student note and that the components of the history, the physicalexam, and the assessment and plan documented were performed in my presence with the student where Iverified the documentation and performed (or re-performed) the exam and medical decision making. I spent a total of 35 minutes coordinating, documenting, and providing care for this patient excluding time spent in the performance of separately billed services or time spent by another provider/QHP. He has no complaints, no leg edema, stable moderate abdomen distention, lungs reduce in left base, CXR not markedly different today compared to yesterday. Tolerating gentle PO diuretics. TTE today showed moderate . Hepatology discussing consideration of TIPS with Cardiology. TTE findings to inform transplant eval. Remainder per trainee note. * Zohra Roman, Medical Student - 01/15/2025 7:20 AM EDT Unless the attending has added an attestation supporting use of this note to document a billable service, the signature of the Licensed Professional on this note only acknowledges the presence of thestudent's note within the patient record and the Licensed Professional's note should be referred tofor clinical information and recommendations. PROGRESS NOTE - HOSPITAL MEDICINE [facility] [place] [address] Name: Satish Spencer Location: [facility] B331/A Date: 01/15/2025 Date of admission: 01/14/2025 Hospital length of stay: 1 days Subjective Overnight Events: No acute events overnight. Subjective: Patient seen and examined at bedside. Currently reports L-sided chest pain when breathing. Most recent fall was 4 days ago. Patient reports getting paracentesis every Monday with about 7 L fluid removed during each session. Denies any fever, chills, cough, CP, N/V/D, abdominal pain, dizziness, or weakness. All systems were reviewed, all pertinent findings were documented above, otherwise negative. Objective CONSTITUTIONAL DATA / OBJECTIVE: Vital Signs (Most Recent): Blood Pressure: 103/71 mmHg Last 12H: Most Recent Systolic BP Av mmHg Min: 103 mmHg Max: 109 mmHg Pulse: 85 Last 12H: Pulse Av Min: 85 Max: 91 Temperature: 36.4 °C (97.5 °F) Last 12H: Most Recent Temperature Av.9 C Min: 35.5 C Max: 36.39 C Respiratory Rate: 19 O2 Saturation: 98 % Vital Signs (Last 24 Hours): Pulse Av Min: 85 Max: 100 No data recorded Most Recent Systolic BP Av mmHg Min: 103 mmHg Max: 109 mmHg Most Recent Diastolic BP Av.8 mmHg Min: 66 mmHg Max: 71 mmHg Resp Av.3 Min: 18 Max: 19 Most Recent Temperature Av.9 C Min: 35.5 C Max: 36.39 C SpO2 Av % Min: 97 % Max: 99 % Intake & Output Summary (Last 24 hours): Intake/Output Summary (Last 24 hours) at 01/15/2025 1356 Last data filed at 01/15/2025 1000 Gross per 24 hour Intake 290 ml Output 845 ml Net -555 ml Height & Weight: Height: 177.8 cm (5' 10") (01/14/252013) Weight: 106.6 kg (235 lb 0.2 oz) (01/15/25215) Weight change: Body mass index is 33.72 kg/m². Physical Examination: General: no apparent distress, awake, alert, cooperative HEENT: normocephalic and atraumatic, dry mucous membranes Heart: regular rate and rhythm; S1 and S2 present; no murmurs, rubs or gallops. Pulmonary: lungs clear to auscultation bilaterally; no wheezes, rhonchi or crackles. Abdomen: distended abdomen with transmitted fluid wave, abdomen is otherwise soft and non-tender with no rebound or guarding MSK: gross motor function intact Extremities: 2+ pitting edema to bilateral lower extremities Skin: mild bruising to anterior L knee and dorsum of L foot Neuro: AAOx3. No gross motor or sensory deficits. Psych: appropriate mood and affect Peripheral Line Right Antecubital 22 Gauge (Active) Number of days: 2 Peripheral Line Left Antecubital 22 Gauge (Active) Number of days: 1 Chest Tube Lateral;Left;Upper Chest (Active) Number of days: 2 Laboratory Values: reviewed. -- Brief labs below include the 7 most recent results over the past week. Blood Gas: No results in the last 7 days - inpatent use only Chemistry Panel: Lab results within last 7 days (see chart for full results) Units 01/15/25 0601/14/25222301/13/25 0000 SODIUM mmol/L 122* 125* -- POTASSIUM mmol/L 3.8 4.1 3.9 CHLORIDE mmol/L 90* 93* -- CO2 mmol/L 20* 23 -- EGFR mL/min >90 85 88.28 BUN mg/dL -- CREATININE mg/dL 0.9 1.0 0.98 GLUCOSE mg/dL 190* 167* 139* CALCIUM mg/dL 8.0* 7.9* -- Magnesium mg/dL -- 2.3 -- ANION GAP mmol/L 12 9 -- Complete Blood Count: Lab results within last 7 days (see chart for full results) Units 01/15/25 0614 01/14/25222301/13/25 0000 WBC K/uL 6.84 9.74 -- HGB g/dL 8.1* 8.0* 6.9* HCT % 24.6* 24.1* -- PLT K/uL 80* 81* -- MCV fL 102.9 103.0 -- Cardiac Studies: No results in the last 7 days - inpatent use only Coagulation Studies: Lab results within last 7 days (see chart for full results) Units 01/15/25 0614 01/14/25 2224 Prothrombin Time seconds 22.8* 22.9* INR 2.0* 2.0* Liver Function Panel: Lab results within last 7 days (see chart for full results) Units 01/15/25 0614 01/14/25 2224 Albumin g/dL 2.2* 2.5* Protein g/dL 5.2* 5.1* Bilirubin, Total mg/dL 3.0* 2.8* Bilirubin, Direct mg/dL -- 1.2* AST U/L 53* 51* ALT U/L 37 38 Alkaline Phosphatase U/L 151* 148* Infectious Studies: No results in the last 7 days - inpatent use only Cultures: reviewed. No results in the last 7 days - inpatent use only Recent Cultures (2 Weeks) No lab values to display. Radiographic Studies: reviewed. No imaging results in the last 72 hours Current Facility-Administered Medications: cefTRIAXone in dextrose (Rocephin) IVPB 2 g, 2 g, IV Piggyback, Q24H, Gaetano Khan MD, Last Rate:100 mL/hr at 01/15/25 1223, 2 g at 01/15/25 1223 Enoxaparin (Lovenox) inj 40 mg, 40 mg, Subcutaneous, Daily(AM), Reagan Baird MD, 40 mg at 01/15/25 0852 Insulin Glargine (Lantus) inj 10 Units, 10 Units, Subcutaneous, AM Insulin, Reagan Baird MD, 10Units at 01/15/25 0852 Lactulose (Constulose) oral soln 30 g, 30 g, Oral, Q4H, Gaetano Khan MD midodrine HCl (Proamatine) tab 10 mg, 10 mg, Oral, TID, Gaetano Khan MD omeprazole (PriLOSEC) cap 40 mg, 40 mg, Oral, BID(AM/PM), Reagan Baird MD, 40 mg at 01/15/25 0853 Allopurinol (Zyloprim) tab 300 mg, 300 mg, Oral, Daily(AM), Reagan Baird MD, 300 mg at atorvaSTATin (Lipitor) tab 20 mg, 20 mg, Oral, Daily(AM), Reagan Baird MD, 20 mg at 01/15/25 0853 dextrose 50% inj 25 mL, 25 mL, IV Push, PRN, Reagan Baird MD dextrose 50% inj 50 mL, 50 mL, IV Push, PRN, Reagan Baird MD glucagon (Glucagen) inj 1 mg, 1 mg, Intramuscular, PRN, Reagan Baird MD Glucose (Glutose 15) 40 % gel 15 g of glucose, 15 g of glucose, Oral, PRN, Reagan Baird MD Glucose (Glutose 15) 40 % gel 30 g of glucose, 30 g of glucose, Oral, PRN, Reagan Baird MD glucose chew tab 16 g, 16 g, Oral, PRN, Reagan Baird MD insulin aspart (NovoLOG) inj, , Subcutaneous, With Meals and HS, Reagan Baird MD, 2 Units at 01/15/25 1210 Lactobacillus (Culturelle) cap 1 Capsule, 1 Capsule, Oral, BID (AM/PM meals), Reagan Baird MD, 1 Capsule at 01/15/25 0853 multivitamin (Mvi) 1 Tablet, 1 Tablet, Oral, Daily Noon, Reagan Baird MD, 1 Tablet at 01/15/25 1211 rifAXIMin (Xifaxan) tab 550 mg, 550 mg, Oral, BID (AM/PM meals), Reagan Baird MD, 550 mg at 01/15/25 0853 sodium chloride 0.9 % flush/inj 3 mL, 3 mL, IV Push, PRN, Reagan Baird MD tamsulosin (Flomax) cap 0.4 mg, 0.4 mg, Oral, Daily(AM), Reagan Baird MD, 0.4 mg at 01/15/25 0853 Torsemide (Demadex) tab 20 mg, 20 mg, Oral, Daily(AM), Reagan Baird MD, 20 mg at 01/15/25 0853 Vitamin C (Ascorbic Acid) tab 1,000 mg, 1,000 mg, Oral, Daily(AM), Reagan Baird MD, 1,000 mg at01/15/25 0853 Assessment & Plan Assessment and Plan: Principal Problem: Decompensated hepatic cirrhosis (HCC) (POA: Yes) Active Problems: Type 2 diabetes mellitus with hemoglobin A1c goal of less than 7.0% (HCC) (POA: Yes) Thrombocytopenia (HCC) (POA: Yes) 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 * POA = Present On Admission MELD 3.0: 26 at 01/15/2025 6:14 AM Calculated from: Serum Creatinine: 0.9 mg/dL (Using min of 1 mg/dL) at 01/15/2025 6:14 AM Serum Sodium: 122 mmol/L (Using min of 125 mmol/L) at 01/15/2025 6:14 AM Total Bilirubin: 3 mg/dL at 01/15/2025 6:14 AM Serum Albumin: 2.2 g/dL at 01/15/2025 6:14 AM INR(ratio): 2 at 01/15/2025 6:14 AM Age at listing (hypothetical): 59 years Sex: Male at 01/15/2025 6:14 AM Satish Spencer is a 59 year old male with Hx significant for liver cirrhosis secondary to GONZALES, HCC s/p TACE (2023), HTN, HLD, and T2DM who was transferred from [facility] for evaluation for TIPS procedure in the setting of increased paracentesis frequency. 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 Patient continues to have volume overload onexam. BMP this morning shows down trending sodium (Na 122). LFT remains abnormal with elevated AST,ALP, and bilirubin and decreasing albumin. UA was unremarkable. MELD 3.0 score 26 based on labs this morning. Hepatology consulted to evaluate for TIPS procedure Patient currently NPO excepts meds for possible procedure GI recommendations below Avoid B-Blockade Recommend increasing Midodrine to 10 TID C/w PETROLEUM INSPECTOR SUPERVISOR Lactulose - titrate to 3-5 liquid loose BM per day C/w [employer]OR SUPERVISOR Rifaximin 550 BID C/w [employer]LE[employer] INSPECTOR SUPERVISOR Torsemide 20 QD (previously intolerant of Furosemide/Aldactone) C/w CTX 2g for SBP treatment Increased dose of IV ceftriaxone from 1 g daily to 2 g daily to treat SBP as outside ER records show PMN > 250 cells/mm3 Recommend Fluid restriction for hyponatremia (2000 ml) Daily MELD 3.0 lab Recommend transplant service consult Recommend PT/OT and ui application developer consult Daily CBC and BMP Large pleural effusion Outside ER thoracentesis showed signs of transudate fluid (LDH pleural/serum < 0.6). Suspect that this is due to refractory ascites. Chest tube is currently clamped this morning. Thoracic surgery consulted for chest tube management Recurrent blood loss anemia Patient had 1 unit of RBC in ER due to Hb 6.3. Hb has been stable since with most recent Hb 8.1. Nocurrent evidence of GI bleed at this time. Daily CBCs to monitor Hb levels Left lower rib fracture Patient has Hx of multiple falls for the past 2 - 3 months presumably from symptomatic orthostatic hypotension. CXR showed evidence of L sided lower rib fractures. Conservative pain management Chronic Problems: BPH: Continue [employer]PECTOR SUPERVISOR Tamsulosin 0.4 mg daily Chronic gout: Continue [employer]OR SUPERVISOR Allopurinol 300 mg daily GERD: Continue [employer]PECTOR SUPERVISOR Omeprazole 40 mg BID HLD: Continue [employer] INSPECTOR SUPERVISOR Atorvastatin 20 mg daily HTN: Hold [employer]ROLE[employer] INSPECTOR SUPERVISOR Nadolol (contraindicated in decompensated liver cirrhosis with frequent paracentesis per [facility] records) Hypotension: Continue [employer]PECTOR SUPERVISOR Midodrine 7.5 mg TID Supplements: Continue PET[employer]LE[employer] INSPECTOR SUPERVISOR multivitamin 1 tablet daily and vitamin C 1000 mg daily T2DM: Hold PETROLEUM INSPECTOR SUPERVISOR Tresiba. Start 10 units Lantus and 2 units NovoLog with meals and HS Misc: Diet: NPO except meds Bowel Regimen: Not indicated at this time Last Bowel Movement: 01/15/25 (01/15/25 0300) Stool Description: Medium;Mushy;Brown (01/15/25 0300) Sleep: No sleep protocol ordered Mcmillan: Not indicated at this time PT/OT: Not indicated at this time GI prophylaxis: Continue Omeprazole 40 mg BID VTE Prophylaxis: Lovenox 40mg q24h Code Status: Full Code Anticipated Discharge: No details at this time LINES / DRAINS / TUBES: LINES ALL Duration Drain Other-Describe Mid Abdomen 40 days Peripheral Line Right Antecubital 22 Gauge 2 days Chest Tube Lateral;Left;Upper Chest 1 day Peripheral Line Left Antecubital 22 Gauge <1 day List of services consulted/following: HEPATOLOGY CONSULT IP THORACIC SURGERY CONSULT IP ADULT PHYSICAL THERAPY CONSULT IP ADULT OCCUPATIONAL THERAPY CONSULT IP TRANSPLANT SERVICE CONSULT IP Patient was discussed with attending physician, MD Zohra Beck, Medical Student Cosigned by Sammy Martinez MD at 01/15/2025 8:10 PM EDT Associated attestation - Sammy Martinez MD - 01/15/2025 8:10 PM EDT I attest that I have reviewed the student note and that the components of the history, the physicalexam, and the assessment and plan documented were performed in my presence with the student where Iverified the documentation and performed (or re-performed) the exam and medical decision making. I spent a total of 35 minutes coordinating, documenting, and providing care for this patient excluding time spent in the performance of separately billed services or time spent by another provider/QHP. 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 Chest tube removal today, prn thoracentesis moving forward. Diurese as tolerated. Hepatology considering tips. documented in this encounter H&P Notes * Reagan Baird MD - 01/14/2025 8:27 PM EDT Images from the original note were not included. [facility] B331/A PRESENTING PROBLEM: HPI: 59 yo male with pmhx of liver cirrohsis 2/2 GONZALES, htn,hld, t2d, diverticulosis, aortic stenosis, hepatic encephalopathy, ascites, HCC s/p TACE, presenting as a transfer from [facility] for evaluationfor TIPS procedure. Patient was having IR paracentesis procedure done 01/13(had 7L fluid taken off), and was having significant fatigue and lethargy during this. Due to this, as well as labs he had done while getting paracentesis which showed a low hgb (per his report), he was told to present to [facility] ED. In the ED, he was found to have hgb of 6.3, CXR showing left sided lower rib fractures, complete opacification of the left hemithorax. CT chest shows increased size of large left pleural effusion with complete collapse of left lung. Chest tube placed. Patient also was given 1 unit pRBCs. GI team saw patient during the admission as did pulmonology. GI recommended that patient be evaluated for a TIPS procedure in the setting of having increased need /frequency of paracenteses recently. Patient reports that he was having paracentesis initially every 14 days, then every 10 days, now isgetting it every 5 days. Patient is reporting some pain on his L side. CXR as above did show broken ribs, he has had multiple falls recently per his history and the history reported in the [facility] notes. Rib fractures were just being managed with pain medicine at [facility]. Fluid studies from thoracentesis are as follows (only paper records are available from [facility]): PH: 7.58 Pleural color: yellow, cloudy, WBC 1404 RBC 5000 Pleural LDH 69, serum LDH 210 Pleural glucose 125 Gram stain: no organisms seen Lives at home with his mother and brother. Mom is 91, brother is in wheelchair. For 2 weeks patienthas been having trouble getting around at home d/t soreness in leg/hip/ ribs. Started using walker.Brother helps him organize his medications. Snow/Leoncio his sister in law and brother respectivelywould be medical decision maker if needed. He reports that he wants to be full code at this time. He has a 10 pack year smoking history, he denies hx of alcohol or drug use BP 105/66, HR 100s on arrival, afebrile Labs done here: UA non infectious INR 2.0 BMP: hyponatremia with Na 125, calcium low at 7.9 Hepatic function panel: albumin low 2.5, AST 51, Alk phosph elevated 148, bilirubin total 2.1, protein 5.1 CBC: no leukocytosis, hgb 8 Subjective Patient's past history, medications, and allergies were reviewed. Objective Physical Exam Most Recent Vital Signs: BP: 105 mmHg/66 mmHg (01/14/252013) Pulse: 100 (01/14/252013) Resp: 18 (01/14/252013) Temp: 35.89 C (01/14/252013) Temp Summary: Temp Min: 35.9 °C (96.6 °F) Max: 35.9 °C (96.6 °F) SpO2: 97 % (01/14/252013) O2 flow rate: Supplemental O2 Delivery: Room Air, None (01/14/252013) Physical Exam Constitutional: General: He is not in acute distress. HENT: Head: Normocephalic and atraumatic. Mouth/Throat: Mouth: Mucous membranes are moist. Eyes: General: Right eye: No discharge. Left eye: No discharge. Conjunctiva/sclera: Conjunctivae normal. Cardiovascular: Rate and Rhythm: Normal rate and regular rhythm. Pulses: Normal pulses. Comments: Systolic murmur present Pulmonary: Effort: Pulmonary effort is normal. No respiratory distress. Breath sounds: Normal breath sounds. No wheezing. Comments: Chest tube present on L side, draining yellowish clear fluid Abdominal: General: Bowel sounds are normal. There is distension. Palpations: Abdomen is soft. There is no mass. Tenderness: There is no abdominal tenderness. Musculoskeletal: Comments: +2 pitting edema present bilaterally Skin: Findings: No rash. Neurological: Mental Status: He is alert. Psychiatric: Mood and Affect: Mood normal. Behavior: Behavior normal. Thought Content: Thought content normal. STUDIES: Encounter Orders Labs and other studies reviewed with pertinent findings noted below: Fluid studies from thoracentesis are as follows (only paper records are available from 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 * DIFFERENTIAL AND PLAN: 59 yo male with pmhx of liver cirrohsis 2/2 GONZALES, htn,hld, t2d, diverticulosis, aortic stenosis, hepatic encephalopathy, ascites, HCC s/p TACE, presenting as a transfer from [facility] for evaluationfor TIPS procedure due to increasing frequency of need for paracentesis procedures. 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 He is now agreeable to TIPS procedure, so will have hepatology see patient in AM for discussion. -Hepatology consult placed for evaluation to eventually plan TIPS procedure by IR -NPO except meds after 2400 for possible procedure -holding PETROLEUM INSPECTOR SUPERVISOR nadolol as per [facility] records patient has had multiple falls/hypotension previously, and also is contraindicated per their notes in decompensated liver cirrhosis requiring frequent paracentesis -cont PETROLEUM INSPECTOR SUPERVISOR omperazole 40 mg BID for ulcer prophylaxis -cont PETROLEUM INSPECTOR SUPERVISOR midodrine -cont PETROLEUM INSPECTOR SUPERVISOR lactulose 30 g TID, titrate for 3-5 soft BMs daily -cont PETROLEUM INSPECTOR SUPERVISOR rifaxamin 550 mg BID -cont PETROLEUM INSPECTOR SUPERVISOR torsemide 20 mg QD, daily weights and intake output monitoring -started IV ceftriaxone 1g Q24H for SBP prophylaxis -monitor daily CBC, BMP, MELD labs Large left pleural effusion Fluid appears to be transudative, with fluid LD: serum LD ratio of 0.32. unable to find records of fluid protein. Suspect that this is 2/2 patient's large volume ascites -consult thoracic surgery in AM for chest tube management -s/p chest tube placement on 01/13 at [facility] with fluid studies as noted above in history portion -will keep chest tube clamped for now, can try unclamping in the AM Recurrent blood loss anemia - s/p one unit pRBC transfusion at [facility], hgb found to be 6.3, hgb 8 at 22:24 today -will monitor hgb while here w daily CBC History of HCC/Liver Lesions -received embolization of R lower lobe lesion 07/2023 -repeat MRI in 01/2024 showed treatment cavity enhancement, patient treated with TACE -MRI 11/14/2024 showed abnormalities in hepatic segment 7, currently plan for SBRT L Rib Fractures from recent fall -appears was being managed conservatively with pain management at [facility], while continue this here Chronic T2d: PETROLEUM INSPECTOR SUPERVISOR takes 15 units long acting QAM, will start patient on 10 units lantus QAM and MDSSI BPH: cont PETROLEUM INSPECTOR SUPERVISOR tamsulosin Hld: cont PETROLEUM INSPECTOR SUPERVISOR atorvastatin PHARMACOLOGIC VTE PROPHYLAXIS:Enoxaparin CODE STATUS: Full Code EXPECTED DISCHARGE DATE: No information available This patient was discussed with Dr. Oleary at the time of admission. Reagan Baird MD PGY1 Cosigned by Gume Oleary MD at 01/15/2025 1:20 AM EDT Associated attestation - Gume Oleary MD - 01/15/2025 1:20 AM EDT I saw and evaluated the patient on 01/14/2025. I have reviewed the resident/fellow physician note and agree. 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 documented in this encounter Procedure Notes * River La MD - 01/17/2025 2:24 PM EDTAssociated Order(s): Paracentesis Post-Procedure Diagnose(s): Other ascites PROCEDURE NOTE [address] [id number] Name: Satish Spencer Location: [facility] B331/A Date: 01/17/2025 Time: 2:24 PM Paracentesis Procedure Date/Time : 01/17/2025 2:24 PM Performed by: River La MD Authorized by: River La MD [place] Protocol: Verbal consent obtained?: Yes Written consent obtained?: Yes Consent given by: Patient Patient states understanding of procedure being performed: Yes Patient's understanding of procedure matches verbalized consent: Yes Procedure consent matches procedure scheduled: Yes Site marked: Yes Verify correct position: Yes Required items: Required blood products, implants, devices and special equipment available Patient identity confirmed: Verbally with patient and arm band Verbal confirmation: MRN, name and date of Other healthcare professional(s) verbalize(s) agreement with timeout: Yes Time out: Immediately prior to the procedure a time out was called A time out verifies correct patient, procedure, equipment, technical customer support specialist and site/side marked as required. Anticoagulation/Anti-platelet Therapy: Anticoagulation/Anti-platelet therapy: No Risks discussed: Bleeding, bowel perforation, infection and pain Indications: Initial or subsequent procedure: Subsequent Procedure purpose: Therapeutic Indications: abdominal discomfort secondary to ascites Anesthesia: Local anesthesia used?: Yes Anesthesia: Local infiltration Local anesthetic: Lidocaine 1% without epinephrine Anesthetic total (ml): 8 Sedation: Patient sedated: No Procedure details: Preparation: Patient was prepped and draped in usual sterile fashion Needle gauge: 18 Ultrasound guided: Yes Puncture site: Left lower quadrant Fluid removed (ml): 3700 Fluid appearance: Clear (Yellow) Dressinx4 sterile gauze and pressure dressing Patient tolerance: Patient tolerated the procedure well with no immediate complications Written and verbal instructions were provided to the patient: Yes Attestation: Attestation: Attending present for bob portions of procedure and immediately available and I personally performed the procedure myself Name of doctor present for entire procedure: Dr. Flaco Viveros Name of doctor present for the critical portions of this procedure: Dr. Flaco Viveros Paracentesis was performed without complications. 3700 cc of clear yellow fluid was obtained. US images were obtained and uploaded to the chart PACS (POCUS section). Cosigned by Flaco Viveros MD at 01/17/2025 2:50 PM EDT Associated attestation - Flaco Viveros MD - 01/17/2025 2:50 PM EDT A procedure was performed. I was present for entire procedure. I agree with the resident/fellow physician note. documented in this encounter Consult Notes * Amrit Magaña MD - 01/24/2025 8:56 PM EDT CONSULT - Interventional Radiology [facility] [place] [address] Name: Satish Spencer Location: [facility] B331/A Date: 01/24/2025 Time: 8:57 PM REASON FOR CONSULT: TIPS HISTORY OF PRESENT ILLNESS: Satish Spencer is a 59 year old male patient with a history of HCC in segment /VII s/p TACE/bland embolization and now on SBRT, DM, aortic valve stenosis, HF, and decompensated MASH cirrhosis with recurrent ascites, originally transferred for anemia, SBP, and weakness. IR was contacted for possible TIPS placement. On exam, the patient denies any abdominal pain, fevers, chills, nausea, vomiting, or melena. He notes that his frequency of requiring paracentesis has increased. The high risks of the procedure associated with the patient's MELD score and cardiac history (increased right heart stress) were discussed with the patient. 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 [facility] Past Surgical History: Procedure Laterality Date ABD/PELVIS CT W/O IV AND W/O PO CONTRAST 03/30/2010 diverticulitis, [facility] CHG CT HEAD/BRAIN W/O CONTRAST MATERIAL 02/27/2024 no acute changes to explain encephalopathy COLONOSCOPY, DIAGNOSTIC (RECTUM) 06/07/2019 normal, repeat 5 yrs/[facility] COLONOSCOPY, DIAGNOSTIC (RECTUM) N/A 01/11/2024 hemorrhoids/recall 5 years/Colonoscopy/[place] COLORECTAL CANCER SCREEN; COLON 05/22/2010 wnl , [...] performed by Gerardo Workman MD at ENDOSCOPY [facility] EGD, FLEXIBLE, DIAGNOSTIC 07/04/2023 Portal hypertensive gastropathy., esophagus and duodenuum normal (EGD), FLEXIBLE, TRANSORAL, DIAGNOSTIC performed by Juli Krause DO at ENDOSCOPY [facility] EGD, FLEXIBLE, DIAGNOSTIC N/A 09/05/2024 moderate portal hypertensive gastropathy/recall 2 years/ESOPHAGOGASTRODUODENOSCOPY (EGD), FLEXIBLE,TRANSORAL, DIAGNOSTIC performed by Jayla Armstrong MD at [facility] FOBT (EIA) 08/27/2023 negative IR BIOPSY 10/04/2024 [...] on file Occupational History 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 Occupation: [employer] Employer: [employer] 0[employer] Tobacco Use Smoking status: Never Smokeless tobacco: Former Types: Chew Quit date: 05/18/2005 Vaping Use Vaping status: Never Used Substance and Sexual Activity Alcohol use: Not Currently Comment: quit "2001ish" Drug use: No Sexual activity: Not on file Other Topics Concern Not on file Social History Narrative Not on file Social Needs Financial Resource Strain: Not on file Food Insecurity: Unknown (01/14/2025) Food Insecurity Worried About Running Out of Food in the Last Year: Not on file Ran Out of Food in the Last Year: Not on file Do you need food for this week? (Adult - for ages 18 years and over): No Transportation Needs: No Transportation Needs (01/14/2025) Transportation Needs Do you have trouble getting a ride to medical visits or work? (Adult - for ages 18 years and over):Not on file Does your family have a hard time getting a ride to doctors’ visits? (Household - for ages 0-17 years): Not on file Has lack of transportation kept you from medical appointments, meetings, work, or from getting things needed for daily living? Check all that apply. (Adult - for ages 18 years and over): No Do you (or your family) have trouble finding or paying for a ride (transportation)? (Household - for ages 0-17 years): Not on file Social Connections: Not on file Housing Stability: Low Risk (01/14/2025) Housing Stability Do you currently live in a chcf or have no steady place to sleep at night? (Adult - for ages 18 years and over): Not on file Do you think you are at risk of becoming homeless? (Adult - for ages 18 years and over): Not on file Does your family worry about paying for your home or becoming homeless? (Household - for ages 0-17 years): Not on file Are you homeless or worried that you might be in the future? (Adult - for ages 18 years and over): No Are you (or your family) homeless or worried that you might be in the future? (Household - for ages0-17 years): Not on file Family History Adopted: Yes [...] Brother Bill No Known Problems Brother Mathew Review of patient's allergies indicates: Allergen Reactions Aspirin Other reaction(s): bloody nose Salicylates nose bleeds Current Facility-Administered Medications Medication Dose Route Frequency Provider Last Rate Last Admin Enoxaparin (Lovenox) inj 40 mg 40 mg Subcutaneous Daily(AM) Bong Chahal MD 40 mg at 01/24/25 1217 [START ON 01/25/2025] Spironolactone (Aldactone) tab 25 mg 25 mg Oral Daily(AM) Illar, Stephanie, DO insulin aspart (NovoLOG) inj Subcutaneous With meals IllarElishaStephanie, DO 2 Units at 01/24/25 1814 Torsemide (Demadex) tab 10 mg 10 mg Oral Daily(AM) Illar Stephanie, DO 10 mg at 01/24/25 0840 Insulin Glargine (Lantus) inj 8 Units 8 Units Subcutaneous AM Insulin Illar Stephanie, DO 8 Units at 01/24/25 0840 Acetaminophen (Tylenol) tab 650 mg 650 mg Oral Q6H PRN Illroberta Stephanie, DO 650 mg at 01/21/25 0438 insulin aspart (NovoLOG) inj Subcutaneous With meals Illar Stephanie, DO 2 Units at 01/24/25 1815 tamsulosin (Flomax) cap 0.8 mg 0.8 mg Oral Daily(AM) Gaetano Khan MD 0.8 mg at 01/24/25 0839 ciprofloxacin (Cipro) tab 500 mg 500 mg Oral Daily(AM) Piotrroberta Stephanie, DO 500 mg at 01/24/25 0839 Saline ([place]) nasal spray 1 [place] Nasal PRN Lizet Bledsoe DO [address] [place] at 01/17/25 0303 Lactulose (Constulose) oral soln 30 g 30 g Oral TID(AM/NOON/HS) Jordin Stephanie, DO 30 g at 01/24/25 1217 midodrine (Proamatine) tab 15 mg 15 mg Oral TID Stephanie Brenner, DO 15 mg at 01/24/25 1728 omeprazole (PriLOSEC) cap 40 mg 40 mg Oral BID(AM/PM) Reagan Baird MD 40 mg at 01/24/25 0840 Allopurinol (Zyloprim) tab 300 mg 300 mg Oral Daily(AM) Reagan Baird MD 300 mg at 01/24/25 0839 atorvaSTATin (Lipitor) tab 20 mg 20 mg Oral Daily(AM) Reagan Baird MD 20 mg at 01/24/25 0840 dextrose 50% inj 25 mL 25 mL IV Push PRN Reagan Baird MD dextrose 50% inj 50 mL 50 mL IV Push PRN Reagan Baird MD glucagon (Glucagen) inj 1 mg 1 mg Intramuscular PRN Reagan Baird MD Glucose (Glutose 15) 40 % gel 15 g of glucose 15 g of glucose Oral PRN Reagan Baird MD Glucose (Glutose 15) 40 % gel 30 g of glucose 30 g of glucose Oral PRN Reagan Baird MD glucose chew tab 16 g 16 g Oral PRN Reagan Baird MD Lactobacillus (Culturelle) cap 1 Capsule 1 Capsule Oral BID (AM/PM meals) Reagan Baird MD 1 Capsule at 01/24/25 1728 multivitamin (Mvi) 1 Tablet 1 Tablet Oral Daily Noon Reagan Baird MD 1 Tablet at 01/24/25 1217 rifAXIMin (Xifaxan) tab 550 mg 550 mg Oral BID (AM/PM meals) Reagan Baird MD 550 mg at 728 sodium chloride 0.9 % flush/inj 3 mL 3 mL IV Push PRN Reagan Baird MD Vitamin C (Ascorbic Acid) tab 1,000 mg 1,000 mg Oral Daily(AM) Reagan Baird MD 1,000 mg at 01/24/25 0840 Prior to Admission medications Medication Sig Last Dose Discont. Nadolol 40 MG Oral Tablet (Corgard) Take 0.25 Tablets by mouth in the morning. Past Week Pantoprazole Sodium 40 MG Oral Tablet Delayed Release (Protonix) Take 1 Tablet by mouth in the morning and 1 Tablet before bedtime. 01/14/2025 Potassium Chloride [facility] ER 10 MEQ Oral Tablet Extended Release Take 2 Tablets by mouth in the morning and 2 Tablets before bedtime. Unknown Insulin Degludec 100 UNIT/ML Subcutaneous Solution Pen-injector (Tresiba FlexTouch) Inject 10 Unitsunder the skin in the morning. Past Week Lactulose 10 GM/15ML Oral Solution (Constulose) Take 45 mL by mouth in the morning and 45 mL at noon and 45 mL before bedtime. 01/14/2025 Noon Mupirocin 2 % External Ointment (Bactroban) Apply topically to affected area 3 times a day. At hospital discharge Past Week Allopurinol 300 MG Oral Tablet (Zyloprim) Take 1 Tablet by mouth in the morning. In the morning.. 01/14/2025 Tamsulosin HCl 0.4 MG Oral Capsule (Flomax) TAKE ONE CAPSULE BY MOUTH EVERY DAY 01/14/2025 Dexcom G7 Sensor Use as directed every 10 days. DxE11.9 Unknown Torsemide 20 MG Oral Tablet (Demadex) Take 1 Tablet by mouth in the morning. 01/14/2025 MagDelay 64 MG Oral Tablet Delayed Release Take 1 Tablet by mouth in the morning. Unknown Midodrine HCl 2.5 MG Oral Tablet (Proamatine) Take 3 Tablets by mouth in the morning and 3 Tablets at noon and 3 Tablets in the evening. 01/14/2025 Evening OneTouch Verio In Vitro Strip (Glucose Blood) Use to check blood sugars up to three times daily DxE11.9 Unknown Docusate Sodium 100 MG Oral Capsule (Colace) Take 1 Capsule by mouth in the morning and 1 Capsule before bedtime. Unknown Sodium Chloride 1 GM Oral Tablet Take 1 Tablet by mouth in the morning and 1 Tablet before bedtime.Unknown rifAXIMin 550 MG Oral Tablet (Xifaxan) TAKE ONE TABLET BY MOUTH EVERY MORNING AND ONE TABLET AT BEDTIME 01/14/2025 Probiotic & Acidophilus Ex St Oral Capsule Take 1 Capsule by mouth in the morning and 1 Capsulebefore bedtime. Unknown Atorvastatin Calcium 20 MG Oral Tablet (Lipitor) Take 1 Tablet by mouth in the morning. 01/14/2025 Multivitamin Adult Oral Tablet daily . Unknown Vitamin C 1000 MG Oral Tablet daily . Unknown OBJECTIVE: Most Recent Vital Signs: BP: 92 mmHg/66 mmHg (01/24/251999) Pulse: 92 (01/24/251999) Resp: 18 (01/24/251999) Temp: 36.28 C (01/24/251999) Temp Summary: Temp Min: 36.3 °C (97.3 °F) Max: 37 °C (98.6 °F) SpO2: 92 % (01/24/251999) O2 flow rate: Supplemental O2 Delivery: Room Air, None (01/24/251999) Intake/Output Summary (Last 24 hours) at 01/24/20252056 Last data filed at 01/24/2025 1800 Gross per 24 hour Intake 580 ml Output 550 ml Net 30 ml PHYSICAL EXAM: Constitutional: awake, alert, NAD HEENT: normocephalic, atraumatic, mucus membranes dry, CV: regular rate and rhythm Chest: on room air, chest expansion is symmetric, respirations are non-labored GI: abdomen is soft, non-tender to palpation. Skin: warm, dry, no jaundice LABS: CBC Results: Results for orders placed or performed during the hospital encounter of 01/14/25 CBC Result Value Ref Range WBC 4.44 4.00 - 10.80 K/uL RBC 2.51 4.50 - 5.25 M/uL HGB 8.2 (L) 14.0 - 16.8 g/dL HCT 24.8 (L) 40.0 - 48.4 % MCV 98.8 82.0 - 99.5 fL MCH 32.7 27.0 - 34.0 pg MCHC 33.1 32.0 - 36.0 g/dL RDW 19.3 11.5 - 15.5 % PLT 57 (L) 140 - 400 K/uL MPV 10.4 6.6 - 11.1 fL nRBCs 0 <=0 /100 WBCs MELD 3.0: 26 at 01/24/2025 6:07 AM Calculated from: Serum Creatinine: 1.2 mg/dL at 01/24/2025 6:07 AM Serum Sodium: 126 mmol/L at 01/24/2025 6:07 AM Total Bilirubin: 2.1 mg/dL at 01/24/2025 6:07 AM Serum Albumin: 2.1 g/dL at 01/24/2025 6:07 AM INR(ratio): 1.9 at 01/24/2025 6:07 AM Age at listing (hypothetical): 59 years Sex: Male at 01/24/2025 6:07 AM IMAGING REVIEW: MRI LIVER dated 11/14/24 1. Cirrhosis with portal hypertension. 2. Right hepatic lobe treatment zone with irregular peripheral enhancement, suggesting residual/recurrent tumor (LR-TR viable). 3. 1.6 cm right hepatic lobe lesion, suspicious for HCC (LR-4). 4. 1.9 cm questionable lesion in the left hepatic lobe with washout in the left hepatic lobe (LR-3), Recommend attention on follow-up. IMPRESSION/PLAN: Satish Spencer is a 59 year old presenting with Will plan for TIPS under general anesthesia as schedule is available next week. Continue daily MELD labs. Continue rifaximin, lactulose, and ciprofloxacin per hepatology. Additional medical management per primary service. I did not see the patient, but I have reviewed the resident/fellow physician documentation and was readily available on date of service. * Tre Loya MD - 01/21/2025 11:01 AM EDTAssociated Order(s): GENERAL SURGERY CONSULT IP CONSULT - Trauma/Emergency Surgery [facility] [place]-[address] [id number] Name: Satish Spencer Location: [facility] [id number] Date: 01/21/2025 Time: 11:01 AM REQUESTING SERVICE: Medicine REASON FOR CONSULT: Satish Spencer [facility] is seen at the request of medicine in consultation for abdominal sinus leaking ascitic fluid s/p suturing at outside facility . HISTORY OF PRESENT ILLNESS: Satish Spencer is a 59 year old, male with hx below most notable for [facility]. States that he had leaking of ascites from umbilical hernia skin for which he was seen at [facility] early November. States that at this time they placed sutures and dermabond. No further drainage from this site. 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) (POA: Yes) Ascites (POA: Yes) Chronic hyponatremia (POA: Yes) Umbilical hernia (POA: Yes) Hepatocellular carcinoma (HCC) (POA: Yes) Recurrent pleural effusion on left (POA: Yes) Pre-transplant evaluation for chronic liver disease (POA: Unknown) POA = Present On Admission PAST MEDICAL [...] 9.0 Hepatic encephalopathy (HCC) 03/28/2022 admitted [facility], ammonia 110 Hyperlipidemia LDL goal < 100 Infection due to human metapneumovirus (hMPV) 01/27/2020 COVID neg Ingrown toenail of both feet 04/04/2022 both big toenails trimmed for ingrown nails [place] 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 [facility] PAST SURGICAL HISTORY: Past Surgical History: Procedure Laterality Date ABD/PELVIS CT W/O IV AND W/O PO CONTRAST 03/30/2010 diverticulitis, [facility] CHG CT HEAD/BRAIN W/O CONTRAST MATERIAL 02/27/2024 no acute changes to explain encephalopathy COLONOSCOPY, DIAGNOSTIC (RECTUM) 06/07/2019 normal, repeat 5 yrs/[facility] COLONOSCOPY, DIAGNOSTIC (RECTUM) N/A 01/11/2024 hemorrhoids/recall 5 years/[place] COLORECTAL CANCER SCREEN; COLON 05/22/2010 wnl , [...] performed by Gerardo Workman MD at ENDOSCOPY [facility] EGD, FLEXIBLE, DIAGNOSTIC 07/04/2023 Portal hypertensive gastropathy., esophagus and duodenuum normal (EGD), FLEXIBLE, TRANSORAL, DIAGNOSTIC performed by Juli Krause DO at ENDOSCOPY [facility] EGD, FLEXIBLE, DIAGNOSTIC N/A 09/05/2024 moderate portal hypertensive gastropathy/recall 2 years/ESOPHAGOGASTRODUODENOSCOPY (EGD), FLEXIBLE,TRANSORAL, DIAGNOSTIC performed by Jayla Armstrong MD at OR [facility] FOBT (EIA) 08/27/2023 negative IR BIOPSY [...] Brother Bill No Known Problems Brother Mathew SOCIAL HISTORY: Social History Tobacco Use Smoking status: Never Smokeless tobacco: Former Types: Chew Quit date: 05/18/2005 Vaping Use Vaping status: Never Used Substance Use Topics Alcohol use: Not Currently Comment: quit "2001ish" Drug use: No ALLERGIES: Aspirin and Salicylates ROS: I have performed a 10-system review of symptoms, including: Consitutional, Eyes, ENT, Cardiovascular, Respiratory, Gastrointestinal, Musculoskeletal, Skin, Neurological, & Hematologic/Lymphatic. All positives noted in HPI, otherwise negative. PHYSICAL EXAMINATION: Most Recent Vital Signs: BP: 91 mmHg/58 mmHg (01/21/25 1003) Pulse: 92 (01/21/25 1003) Resp: 18 (01/21/251002) Temp: 36.22 C (01/21/251002) Temp Summary: Temp Min: 36.2 °C (97.2 °F) Max: 36.6 °C (97.9 °F) SpO2: 100 % (01/21/25 1003) O2 flow rate: Supplemental O2 Delivery: Room Air, None (01/21/251002) Vital Signs Over Last 24 Hours: Systolic BP: Most Recent Systolic BP Av.4 mmHg Min: 90 mmHg Max: 93 mmHg Temperature: Most Recent Temperature Av.4 C Min: 36.22 C Max: 36.61 C Pulse: Pulse Av.8 Min: 92 Max: 99 Respirations: Resp Av.6 Min: 16 Max: 18 SpO2: SpO2 Av.8 % Min: 97 % Max: 100 % Physical Exam Constitutional: General: Not in acute distress. Cardiovascular: Rate and Rhythm: Normal rate. Pulmonary: Effort: Pulmonary effort is normal. No respiratory distress. Abdominal: General: There is no distension. Palpations: Abdomen is soft. Tenderness: There is no abdominal tenderness. There is no guarding or rebound. Incision sites: umbilical hernia, sutures in place with umbilical hernia and overlying derma pizarro, no leaking of ascites Musculoskeletal: General: Grossly normal range of motion. Skin: General: Skin is warm and dry. Neurological: General: No gross deficit present. Mental Status: Patient is alert. LABS: Lab results within last 7 days (see chart for full results) Units 01/21/25 0650 01/20/25 0644 01/18/25 0915 01/17/25 0634 01/16/25 0640 01/15/25 0614 01/14/25 2224 WBC K/uL 4.36 5.54 5.81 6.27 7.39 6.84 9.74 HGB g/dL 6.8* 7.2* 8.0* 7.7* 8.1* 8.1* 8.0* PLT K/uL 49* 54* 78* 78* 80* 80* 81* Lab results within last 7 days (see chart for full results) Units 01/21/25 0650 01/20/25 0644 01/19/25 0804 01/18/25 0915 01/17/25 0634 01/16/25 0640 01/15/25 0614 01/14/25 2224 SODIUM mmol/L 127* 123* 120* 122* 125* 126* 122* 125* POTASSIUM mmol/L 3.5 3.6 3.6 3.7 3.5 3.9 3.8 4.1 CHLORIDE mmol/L 95* 92* 89* 91* 94* 94* 90* 93* CO2 mmol/L 21* 22 22 23 24 22 20* 23 BUN mg/dL 15 15 15 15 16 17 19 20 CREATININE mg/dL 1.2 1.1 1.0 0.9 1.0 0.9 0.9 1.0 GLUCOSE mg/dL 164* 111 119 164* 131* 202* 190* 167* CALCIUM mg/dL 7.9* 7.8* 7.8* 7.8* 7.6* 7.9* 8.0* 7.9* Magnesium mg/dL -- -- -- 1.9 2.1 2.1 -- 2.3 Phosphorus mg/dL -- -- -- 2.3* 2.6 2.6 -- -- Lab results within last 7 days (see chart for full results) Units 01/21/25 0650 01/20/25 0644 01/19/25 0804 01/18/25 0915 01/17/25 0634 01/16/25 0640 01/15/25 0614 01/14/25 2224 Protein g/dL 4.8* 5.0* 5.0* 4.9* 5.0* 4.9* 5.2* 5.1* Bilirubin, Total mg/dL 1.7* 1.9* 2.0* 1.8* 2.1* 2.5* 3.0* 2.8* Alkaline Phosphatase U/L 181* 189* 211* 187* 169* 154* 151* 148* AST U/L 56* 64* 75* 65* 54* 49 53* 51* ALT U/L 35 38 43 41 38 36 37 38 No results in the last 7 days - inpatent use only Lab results within last 7 days (see chart for full results) Units 01/21/25 0650 01/20/25 0644 01/19/25 0804 01/18/25 0915 01/17/25 0634 01/16/25 0909 01/15/25 0614 01/14/25 2224 INR 2.0* 1.9* 1.8* 1.8* 1.9* 1.8* 2.0* 2.0* IMAGING: CTA TAVR GATED STUDY Result Date: 01/21/2025 IMPRESSION 1. There is a tri-leaflet aortic valve. There is aortic valve leaflet thickening and calcification with associated motion restriction. The aortic valve area/aperture is approximately 2.5-2.6 square centimeters. 2. Cirrhosis and portal hypertension with moderate ascites. 3. Suspected hepatocellular carcinoma better assessed on prior MRI. 4. Additional findings as above. IMPRESSION and PLAN: Satish is a 59 year old male with GONZALES cirrhosis and HCC . Patient previously seen at [facility] in early November due to leaking of ascites from umbilical hernia - at which time they placed sutures and derma pizarro. No further draining. At [facility] for TIPS procedure. Last seen by transplant in 2022 at which time he was listed for transplant. -- no acute intervention at this time -- would avoid removal of sutures, to remain indefinitely until they fall out on their own -- general surgery will sign off at this time, please contact if any further concern if leaking of ascites Discussed with Dr. Loya REFERRING PHYSICIAN: 1. Benjamin Soni MD PRIMARY CARE PHYSICIAN: Krystian Palomo MD I saw and evaluated the patient today. I have reviewed the resident/fellow physician note and agree. 59 year old, male with cirrhosis s/p local repair of [facility]itic [facility], admitted for TIPS procedure. Keep dermabond and sutures in place. * Kunal Mueller DDS - 01/20/2025 4:42 PM EDTAssociated Order(s): DENTISTRY CONSULT IP REQUESTED SERVICE: Dentistry REASON FOR REQUEST: Clearance prior to TAVR per [facility] consult with Dental consult requested for a [id number] male/female patient with significant PMH - cirrhosis 2/2 GONZALES complicated by hepatic encephalopathy, ascites, HCC s/p TACE who presents as a transfer from [facility] for evaluation for TIPS procedure. Recommended for transplant evaluation prior to TIPS. Patient was evaluated bedside. Denies any dental related pain. Last dental visit was prior to admission, pt was told that he has periodontal disease. Brushes twice a day. Extraoral/Intraoral findings: No extraoral facial swelling noted. No signs of lymphadenopathy or facial asymmetry. No click, crepitus, or palpable pain in TMJ. Lips, tongue, oropharynx, palate, buccal mucosa WNL. No elevation of floor of the mouth. Patient has generalized plaque and calculus. No obvious grossly decayed teeth. Class 1 mobility teeth #18,30 with exposed roots due to periodontal disease No signs of acute odontogenic infection. No xrays taken today However, no evidence of acute odontogenic infection based on the limited exam performed today. All findings discussed with patient. All questions were answered. RECOMMENDATIONS: 1) Patient to proceed with TAVR if urgent. Once patient is stabilized after surgery to schedule an appointment with OMFS for extraction of periodontally involved teeth #19,30. 2) If patient does not undergo surgery in the next few weeks, extraction of the teeth #19,30 is recommended with time to heal prior to surgery. 3)Once discharged, patient to follow up with a dentist for comprehensive dental care. 4) Minimize the risk of bacteremia in the interim period with a chlorhexidine rinse protocol ([id number] 2-3x per day), and consider the use of systemic antibiotics as well. Kunal Mueller DDS * Citlaly Cassidy MD - 01/17/2025 2:48 PM EDTAssociated Order(s): TRANSPLANT SERVICE CONSULT IP Transplant Surgery Consultation Note Patient Name: Satish Spencer Date: 01/15/2025 Requesting Provider: Stephanie Brenner DO Consulting Provider: Citlaly Cassidy MD This patient is being seen in consultation at the request of Stephanie Jacob DO, for "h/o MASHcirrhosis; please evaluate for transplant candidacy". I will communicate to the referring physicianby forwarding my consultation note. History of Present Illness: 59M PMH cirrhosis 2/2 GONZALES complicated by hepatic encephalopathy, ascites, HCC s/p TACE who presents as a transfer from [facility] for evaluation for TIPS procedure. Recommended for transplant evaluation prior to TIPS. Patient was seen by Dr. Grayson in Transplant Surgery Clinic in 08/2023. Recommended for cardiac clearance. Committee review decision at that time was to continue to move forward with evaluation in anticipation of liver transplant listing. Echo done 11/14/2023 revealed moderate aortic valve calcificati on/stenosis. Nuclear stress test on 11/26/2023 normal. Colonoscopy on 01/11/2024 normal. Liver MRI on11/14/2024 reveals cirrhosis with portal hypertension, right hepatic lobe treatment zone with irregular peripheral enhancement, concerning for residual/recurrent tumor as well as right hepatic lobe lesion and left hepatic lobe lesion, concerning for HCC. Repeat echo was done on 01/16/2025 which re-demonstrates moderate . Per multidisciplinary review of the patient, patient was cleared for TIPS from the standpoint of cardiology in regards to . GI wanted to hold off on moving forward with TIPS until further discussion with transplant team. Patient is currently undergoing paracentesis every 5 days. Patient reports that he was walking witha cane up until 1 month ago when he started requiring assistance with a walker. He had a fall this past weekend and has had difficulty walking since then. He reports this fall was in part due to tripping over his walker. He reports dizziness. He had an umbilical hernia that had some leakage and wasstitched at OSH. He denies blood in the stool or hematemesis. 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 • Blood type A+ 09/21/2023 • BMI 35.0-35.9,adult • Cancer, hepatocellular (HCC) • Diverticulitis of colon • Diverticulosis of colon • DM type 2, goal A1c below 7 02/26/2010 HGBA1C 7.5 • Family history of colon cancer Mother, Neema Spencer • Fracture of rib of right side 12/21/2013 cortical fx anterior right 9th rib • Gout 08/08/2001 uric acid 9.0 • Hepatic encephalopathy (HCC) 03/28/2022 admitted [facility], ammonia 110 Hyperlipidemia LDL goal < 100 • Infection due to human metapneumovirus (hMPV) 01/27/2020 COVID neg • Ingrown toenail of both feet 04/04/2022 both big toenails trimmed for ingrown nails [place] • 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 • Screening for HIV (human immunodeficiency virus) 12/11/2014 negative • Thrombocytopenia (HCC) 05/21/2020 84,000 • Thrombosed external hemorrhoid 01/18/2013 [facility] ER • Urinary retention 08/27/2023 maybe from constipation? [facility] Past Surgical History: Procedure Laterality Date • ABD/PELVIS CT W/O IV AND W/O PO CONTRAST 03/30/2010 diverticulitis, [facility] • CHG CT HEAD/BRAIN W/O CONTRAST MATERIAL 02/27/2024 no acute changes to explain encephalopathy • COLONOSCOPY, DIAGNOSTIC (RECTUM) 06/07/2019 normal, repeat 5 yrs/[facility] • COLONOSCOPY, DIAGNOSTIC (RECTUM) N/A 01/11/2024 hemorrhoids/recall 5 years/[place] • COLORECTAL CANCER SCREEN; COLON 05/22/2010 wnl , repeat in 3 yrs • CT ABD/PELVIS W IV AND W ORAL CONTRAST 05/10/2020 3 mm nonobstructing right ureteral calculus • ECHO EXAM OF HEART (2D ECHO) 07/14/2022 normal LV size and function, EF 55%, grade 2 diastolic dysfunction calcified moderate aortic stenosis • EGD, FLEXIBLE, DIAGNOSTIC 08/04/2021 normal/ESOPHAGOGASTRODUODENOSCOPY (EGD), FLEXIBLE, TRANSORAL, DIAGNOSTIC performed by Gerardo Workman MD at ENDOSCOPY [facility] • EGD, FLEXIBLE, DIAGNOSTIC 07/04/2023 Portal hypertensive gastropathy., esophagus and duodenuum normal (EGD), FLEXIBLE, TRANSORAL, DIAGNOSTIC performed by Juli Krause DO at ENDOSCOPY [facility] • EGD, FLEXIBLE, DIAGNOSTIC N/A 09/05/2024 moderate portal hypertensive gastropathy/recall 2 years/ESOPHAGOGASTRODUODENOSCOPY (EGD), FLEXIBLE,TRANSORAL, DIAGNOSTIC performed by Jayla Armstrong MD at OR [facility] • FOBT (EIA) 08/27/2023 negative • IR BIOPSY 10/04/2024 • IR CANCER CHEMO EMBOLIZATION (TACE) 08/02/2023 • IR CANCER CHEMO EMBOLIZATION (TACE) 04/11/2024 • IR PROCEDURE NOT PERFORMED DOCUMENTATION ONLY 06/18/2024 • MRI ABDOMEN W CONTRAST 06/09/2023 2 spots in liver suggestive of hepatocellular carcinoma, varices, GB thickened, splenomegaly. cirrhotic liver • STRESS ECHO (EXERCISE) 11/30/2006 normal, EF 60% • US ABDOMEN LIMITED 02/27/2024 small amount of ascites, <500 cc Current Facility-Administered Medications Medication Dose Route Frequency Provider Last Rate Last Admin • Allopurinol (Zyloprim) tab 300 mg 300 mg Oral Daily(AM) Reagan Baird MD 300 mg at 01/17/25 1007 • atorvaSTATin (Lipitor) tab 20 mg 20 mg Oral Daily(AM) Reagan Baird MD 20 mg at 01/17/25 1007 • cefTRIAXone in dextrose (Rocephin) IVPB 2 g 2 g IV Piggyback Q24H Sammy Martinez MD Stopped at 01/17/25 1245 • dextrose 50% inj 25 mL 25 mL IV Push PRN Reagan Baird MD • dextrose 50% inj 50 mL 50 mL IV Push PRN Reagan Baird MD • Enoxaparin (Lovenox) inj 40 mg 40 mg Subcutaneous Daily(AM) Reagan Baird MD 40 mg at 01/17/25 1007 • glucagon (Glucagen) inj 1 mg 1 mg Intramuscular PRN Reagan Baird MD • Glucose (Glutose 15) 40 % gel 15 g of glucose 15 g of glucose Oral PRN Reagan Baird MD • Glucose (Glutose 15) 40 % gel 30 g of glucose 30 g of glucose Oral PRN Reagan Baird MD • glucose chew tab 16 g 16 g Oral PRN Reagan Baird MD • insulin aspart (NovoLOG) inj Subcutaneous With Meals and HS Reagan Baird MD 6 Units at 01/17/25 1317 • insulin aspart (NovoLOG) inj Subcutaneous With meals IllStephanie granados, DO 2 Units at 01/17/25 1317 • Insulin Glargine (Lantus) inj 10 Units 10 Units Subcutaneous AM Insulin Reagan Baird MD 10 Units at 01/17/25 1008 • Lactobacillus (Culturelle) cap 1 Capsule 1 Capsule Oral BID (AM/PM meals) Reagan Baird MD 1Capsule at 01/17/25 1007 • Lactulose (Constulose) oral soln 30 g 30 g Oral TID(AM/NOON/HS) Stephaine Brenner, DO 30 g at 01/17/25 1212 • midodrine (Proamatine) tab 15 mg 15 mg Oral TID Stephanie Brenner, DO 15 mg at 01/17/25 1211 • multivitamin (Mvi) 1 Tablet 1 Tablet Oral Daily Noon Reagan Baird MD 1 Tablet at 01/17/25 1211 • omeprazole (PriLOSEC) cap 40 mg 40 mg Oral BID(AM/PM) Reagan Baird MD 40 mg at 01/17/25 1007 • rifAXIMin (Xifaxan) tab 550 mg 550 mg Oral BID (AM/PM meals) Reagan Baird MD 550 mg at 01/17/25 1007 • Saline ([place]) nasal spray [address] [place] Nasal PRN Lizet Bledsoe, DO [address] [place] at 01/17/25 0303 • sodium chloride 0.9 % flush/inj 3 mL 3 mL IV Push PRN Reagan Baird MD • tamsulosin (Flomax) cap 0.4 mg 0.4 mg Oral Daily(AM) Reagan Baird MD 0.4 mg at 01/17/25 1007 • Torsemide (Demadex) tab 20 mg 20 mg Oral Daily(AM) Reagan Baird MD 20 mg at 01/17/25 1007 • Vitamin C (Ascorbic Acid) tab 1,000 mg 1,000 mg Oral Daily(AM) Reagan Baird MD 1,000 mg at 01/17/25 1007 Review of patient's allergies indicates: Allergen Reactions • Aspirin Other reaction(s): bloody nose • Salicylates nose bleeds Family History Adopted: Yes Problem Relation Name Age of Onset • Hypertension Mother Neema • Cancer Mother Neema colon • Colon cancer Mother Neema • Emphysema Father • Other (black lung) Father • Hypertension Father • Diabetes Father • Other (cornea transplant) Father • Rheum arthritis Sister Armrina • Hypertension Sister Armrina • Irritable Bowel Syndrome Brother carin • Hypertension Brother carin • Diabetes Brother carin • Other (pacemaker) Brother carin • Liver disease Brother carin • Arthritis Brother carin • Other (cancer ) Brother kira back • Other (sepsis) Brother kira • Hypertension Brother Bill • Heart attack Brother Bill • Diabetes Brother Bill • Hyperlipidemia Brother Bill • No Known Problems Brother Mathew Social History: Tobacco Use • Smoking status: Never • Smokeless tobacco: Former Types: Chew Quit date: 05/18/2005 Vaping Use • Vaping status: Never Used Substance Use Topics • Alcohol use: Not Currently Comment: quit "2001" • Drug use: No Review of Systems: ROS negative other than outlined in HPI. Physical Exam: BP 101/64 | Pulse 100 | Temp 35.9 °C (96.6 °F) (Tympanic) | Resp 20 | Ht 1.778 m (5' 10") | Wt 106.9 kg (235 lb 10.8 oz) | SpO2 99% | BMI 33.82 kg/m² | BSA 2.3 m² General: no acute distress, answering questions appropriately Eyes: extraocular movements intact bilaterally, no scleral icterus ENT: no drainage from nose, external ear normal Cardiac: regular rate Respiratory: unlabored breathing on room air Abdominal: soft, non-tender, distended, umbilical hernia with suture and dressing, ascites Musculoskeletal: no deformities or lower extremity edema Neurologic: moves all extremities purposefully and with 5/5 strength Integumentary: no jaundice, rashes, or bruises Psychiatric: normal mood and affect Assessment and Plan: 59M PMH cirrhosis 2/2 GONZALES complicated by hepatic encephalopathy, ascites, HCC s/p TACE who presents as a transfer from [facility] for evaluation for TIPS procedure. Recommended for transplant evaluation prior to TIPS. Patient was previously seen and evaluated by the transplant surgery team in 08/2023. - Recommend finishing full than transplant evaluation Citlaly Cassidy MD 01/15/2025 3:55 PM Lab Review: Recent Results (from the past 24 hours) GLUCOSE METER, POINT OF CARE Collection Time: 01/16/25 4:30 PM Result Value Ref Range Glucose - POCT 213 (H) 70 - 120 mg/dL GLUCOSE METER, POINT OF CARE Collection Time: 01/16/25 8:57 PM Result Value Ref Range Glucose - POCT 231 (H) 70 - 120 mg/dL CBC Collection Time: 01/17/25 6:34 AM Result Value Ref Range WBC 6.27 4.00 - 10.80 K/uL RBC 2.25 4.50 - 5.25 M/uL HGB 7.7 (L) 14.0 - 16.8 g/dL HCT 23.4 (L) 40.0 - 48.4 % MCV 104.0 82.0 - 99.5 fL MCH 34.2 27.0 - 34.0 pg MCHC 32.9 32.0 - 36.0 g/dL RDW 21.6 11.5 - 15.5 % PLT 78 (L) 140 - 400 K/uL MPV 9.9 6.6 - 11.1 fL nRBCs 0 <=0 /100 WBCs COMPREHENSIVE METABOLIC PANEL Collection Time: 01/17/25 6:34 AM Result Value Ref Range BUN 16 6 - 20 mg/dL CREATININE 1.0 0.6 - 1.2 mg/dL EGFR 88 >=60 mL/min SODIUM 125 (L) 135 - 146 mmol/L POTASSIUM 3.5 3.5 - 5.1 mmol/L CHLORIDE 94 (L) 98 - 107 mmol/L CO2 24 22 - 32 mmol/L ANION GAP 7 7 - 15 mmol/L GLUCOSE 131 (H) 70 - 120 mg/dL Albumin 2.2 (L) 3.8 - 5.0 g/dL AST 54 (H) 10 - 50 U/L Alkaline Phosphatase 169 (H) 35 - 130 U/L Bilirubin, Total 2.1 (H) <=1.2 mg/dL CALCIUM 7.6 (L) 8.4 - 10.2 mg/dL Protein 5.0 (L) 6.0 - 8.3 g/dL ALT 38 10 - 50 U/L MAGNESIUM Collection Time: 01/17/25 6:34 AM Result Value Ref Range Magnesium 2.1 1.5 - 2.6 mg/dL PHOSPHORUS Collection Time: 01/17/25 6:34 AM Result Value Ref Range Phosphorus 2.6 2.5 - 4.8 mg/dL PT INR Collection Time: 01/17/25 6:34 AM Result Value Ref Range Prothrombin Time 21.7 (H) 11.6 - 15.2 seconds INR 1.9 (H) 0.8 - 1.2 Cosigned by sAher Merchant MD at 01/17/2025 2:51 PM EDT Associated attestation - Asher Merchant MD - 01/17/2025 2:51 PM EDT I saw and evaluated the patient today. I have reviewed the resident/fellow physician note and agree. Decompensated GONZALES cirrhosis, frequest paracentesis, some deconditioning. Moderate aortic stenosis.Overall, no absolute contraindications to transplant from a surgical standpoint. Asher Merchant MD Transplantation & Liver Surgery * Rick Ng MD - 01/17/2025 11:43 AM EDTAssociated Order(s): CARDIOLOGY CONSULT IP Images from the original note were not included. CONSULT - Cardiology [address] [id number] Name: Satish Spencer Location: [facility] B331/A Date: 01/17/2025 Time: 11:43 AM REQUESTING SERVICE: Transplant surgery via Hospital Medicine REASON FOR CONSULT: "evaluation as part of pre-transplant evaluation (h/o MARYANN BRENNAN) " HPI: 59 YO M admitted with decompensated cirrhosis. Cardiology has been consulted for preoperative risk stratification PMH includes: MASH cirrhosis c/b ascites, HE, and EV requiring scheduled paracentesis Hepatocellular carcinoma s/p embolization and SBRT Moderate aortic stenosis Mild MR Dyslipidemia IDDM2 H/o EtOH use disorder Patient transferred from [facility] for evaluation for TIPS procedure. He had a nuclear myocardial perfusion pharmacologic stress test 11/26/2024 which showed normal myocardial perfusion. He had a transthoracic echocardiogram obtained yesterday 01/17/2020 that showed moderate aortic stenosis, mild mitral regurgitation, and no other significant abnormalities. No evidence of pulmonary hypertension on transthoracic echo. Patient reports that he can walk around his house and take care of his own ADLs without significantdyspnea. He has never experienced chest pain. He used to be a lot more active before his liver disease progressed to the current point so he has not been doing very much over the past year terms of physical activity. He essentially describes living between scheduled paracenteses because he fills up with fluid in his abdomen. 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 [facility] PAST SURGICAL HISTORY: Past Surgical History: Procedure Laterality Date ABD/PELVIS CT W/O IV AND W/O PO CONTRAST 03/30/2010 diverticulitis, [facility] CHG CT HEAD/BRAIN W/O CONTRAST MATERIAL 02/27/2024 no acute changes to explain encephalopathy COLONOSCOPY, DIAGNOSTIC (RECTUM) 06/07/2019 normal, repeat 5 yrs/[facility] COLONOSCOPY, DIAGNOSTIC (RECTUM) N/A 01/11/2024 hemorrhoids/recall 5 years/Col[place]oscopy/[place] COLORECTAL CANCER SCREEN; COLON 05/22/2010 wnl , [...] performed by Gerardo Workman MD at ENDOSCOPY [facility] EGD, FLEXIBLE, DIAGNOSTIC 07/04/2023 Portal hypertensive gastropathy., esophagus and duodenuum normal (EGD), FLEXIBLE, TRANSORAL, DIAGNOSTIC performed by Juli Krause DO at ENDOSCOPY [facility] EGD, FLEXIBLE, DIAGNOSTIC N/A 09/05/2024 moderate portal hypertensive gastropathy/recall 2 years/ESOPHAGOGASTRODUODENOSCOPY (EGD), FLEXIBLE,TRANSORAL, DIAGNOSTIC performed by Jayla Armstrong MD at [facility] FOBT (EIA) 08/27/2023 negative IR BIOPSY 10/04/2024 [...] Never Used Substance Use Topics Alcohol use: Not Currently Comment: quit "2001" Drug use: No ALLERGIES: Aspirin and Salicylates ROS: Reviewed and otherwise negative aside from as stated in HPI PHYSICAL EXAMINATION: Most Recent Vital Signs: BP: 109 mmHg/66 mmHg (01/17/25907) Pulse: 94 (01/17/25907) Resp: 20 (01/17/25907) Temp: 36 C (01/17/25907) Temp Summary: Temp Min: 35.6 °C (96.1 °F) Max: 36 °C (96.8 °F) SpO2: 98 % (01/17/25907) O2 flow rate: Supplemental O2 Delivery: Room Air, None (01/17/25907) Vital Signs Last 24 Hours: Systolic BP: Most Recent Systolic BP Av.8 mmHg Min: 90 mmHg Max: 109 mmHg Temperature: Most Recent Temperature Av.9 C Min: 35.61 C Max: 36 C Pulse: Pulse Av.4 Min: 94 Max: 104 Respirations: Resp Av.8 Min: 19 Max: 20 SpO2: SpO2 Av.2 % Min: 96 % Max: 98 % General Exam: General: NAD Head and face: atraumatic, normocephalic Eyes: normal lids, icteric sclera, no conjunctival injection Respiratory: Non-labored breathing, CTAB, no adventitious breath sounds Cardiovascular: regular rate and rhythm, S1 and S2 appreciated, grade 2 6 systolic ejection murmur radiating to the carotids. Unable to appreciate neck veins due to habitus but patient is lying flat comfortably having a conversation throughout the exam Abdomen: Soft, distended non-tender. Peripheral vascular: cap refill <2 seconds, no LE edema, Radial 2/4 Skin: Warm and well perfused Psychiatric: normal mood and normal affect LABS: Reviewed EMR MELD 3.0: 25 at 01/17/2025 6:34 AM Calculated from: Serum Creatinine: 1 mg/dL at 01/17/2025 6:34 AM Serum Sodium: 125 mmol/L at 01/17/2025 6:34 AM Total Bilirubin: 2.1 mg/dL at 01/17/2025 6:34 AM Serum Albumin: 2.2 g/dL at 01/17/2025 6:34 AM INR(ratio): 1.9 at 01/17/2025 6:34 AM Age at listing (hypothetical): 59 years Sex: Male at 01/17/2025 6:34 AM STUDIES: Reviewed EMR TTE 01/16/25 Interpretation Summary The examination is adequate to evaluate the referral indication. The qualitative LV ejection fraction is 60-64% (normal). No LV segmental wall motion abnormalities. The right ventricular cavity size is normal (basal dimension < 4.2 cm RV apical 4 chamber view). The right ventricular systolic function is qualitatively normal. Moderate aortic valve stenosis is present. NM SPECT MPI Lexiscan 11/26/24 Interpretation Summary The pharmacologic myocardial perfusion imaging is normal without evidence of scar or inducible ischemia. Gated SPECT imaging reveals normal myocardial thickening and wall motion. 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 * POA = Present On Admission 59 YO M admitted with decompensated cirrhosis. Cardiology has been consulted for preoperative risk stratification. Recommendations by problem as follows: Preoperative risk stratification for possible TIPS MASH Cirrhosis HCC s/p embolization and SBRT Pre-operative evaluation, non-cardiac surgery Based on 2023 ACC/AHA Guidelines for Noncardiac Surgery SURGERY: TIPS This is an urgent surgery and the patient assessed as not in ACS. This is an intraperitoneal surgery and is therefore an elevated risk surgery. Based on RCRI for non-vascular surgeries, the patient has an elevated-risk surgery, corresponding to a Revised Cardiac Risk Index of 2. This corresponds to a major cardiac complication risk (cardiac , nonfatal PA, nonfatal cardiac arrest) of 10.1% (95% CI: 8.1% - 12.6%). The patient is therefore at elevated risk. RECOMMENDATIONS: The patient has elevated risk for surgery but not prohibitive. There is no additional cardiac intervention indicated at this time to alter the patient risk for surgery. It is reasonable to proceed with surgery without further cardiac intervention or testing. Intraoperative hemodynamic monitoring may be considered in the setting of moderate aortic stenosis Continue statin Volume status management with diuretics and paracentesis per primary and hepatology. Please reach out with any further questions Will further discuss moderate aortic stenosis with structural heart disease team. This would be a consideration prior to transplant, but not TIPS Pt was seen, examined, and discussed with attending physician Dr. Ng. Please see final attestation for any additional recommendations. Will sign-off at this time. Thank you for allowing us to participate in the care of this patient. Please call with any questions. This chart was completed in part utilizing [employer] Speech Voice Recognition Software. Grammatical errors, random word insertions, pronoun errors, and incomplete sentences are an occasional consequence of this system due to software limitations, ambient noise, and hardware issues. Any formal questions or concerns about the content, text, or information contained within the body of this dictation should be directly addressed to the physician for clarification. Juan Herrera DO Cardiovascular Disease Fellow 01/17/2025 11:43 AM I saw and evaluated the patient 01/17/25. I have reviewed the resident/fellow physician note and agree. * Lissy Lenz OTR/Wilver - 01/17/2025 9:35 AM EDTAssociated Order(s): ADULT OCCUPATIONAL THERAPY CONSULT IP General Evaluation - Occupational Therapy [facility] [address] Name: Satish Spencer Location: [facility] B331/A Date: 01/17/2025 Time: 09:35 AM Satish Spencer is a 59 year old male. Patient Status: Inpatient Insurance: Payor: [employer] Plan: Qik Product Type: *No Product type* Patient Seen: at bedside, nursing cleared patient for therapy Patient Identified By: Name, ID Band and Date Diagnosis: hepatic cirrhosis (01/17/25934) Status of treatment: Evaluation completed (01/17/25934) Orders: OT evaluation and treatment;OT OOB (01/17/25934) Weight Bearing Status: Weight bearing as tolerated (01/17/25934) Precautions: Alarms;Falls;Safety (01/17/25934) Total Treatment Time: 25 (01/17/25934) Past Medical History: Past Medical History: Diagnosis [...] 9.0 Hepatic encephalopathy (HCC) 03/28/2022 admitted [facility], ammonia 110 Hyperlipidemia LDL goal < 100 Infection due to human metapneumovirus (hMPV) 01/27/2020 COVID neg Ingrown toenail of both feet 04/04/2022 both big toenails trimmed for ingrown nails [place] 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 [facility] Past Surgical History: Past Surgical History: Procedure Laterality Date ABD/PELVIS CT W/O IV AND W/O PO CONTRAST 03/30/2010 diverticulitis, [facility] CHG CT HEAD/BRAIN W/O CONTRAST MATERIAL 02/27/2024 no acute changes to explain encephalopathy COLONOSCOPY, DIAGNOSTIC (RECTUM) 06/07/2019 normal, repeat 5 yrs/[facility] COLONOSCOPY, DIAGNOSTIC (RECTUM) N/A 01/11/2024 hemorrhoids/recall 5 years/[place] COLORECTAL CANCER SCREEN; COLON 05/22/2010 wnl , [...] performed by Gerardo Workman MD at ENDOSCOPY [facility] EGD, FLEXIBLE, DIAGNOSTIC 07/04/2023 Portal hypertensive gastropathy., esophagus and duodenuum normal (EGD), FLEXIBLE, TRANSORAL, DIAGNOSTIC performed by Juli Krause DO at ENDOSCOPY [facility] EGD, FLEXIBLE, DIAGNOSTIC N/A 09/05/2024 moderate portal hypertensive gastropathy/recall 2 years/ESOPHAGOGASTRODUODENOSCOPY (EGD), FLEXIBLE,TRANSORAL, DIAGNOSTIC performed by Jayla Armstrong MD at [facility] FOBT (EIA) 08/27/2023 negative IR BIOPSY 10/04/2024 IR CANCER CHEMO EMBOLIZATION (TACE) 08/02/2023 IR CANCER CHEMO EMBOLIZATION (TACE) 04/11/2024 IR PROCEDURE NOT PERFORMED DOCUMENTATION ONLY 06/18/2024 MRI ABDOMEN W CONTRAST 06/09/2023 2 spots in liver suggestive of hepatocellular carcinoma, varices, GB thickened, splenomegaly. cirrhotic liver STRESS ECHO (EXERCISE) 11/30/2006 normal, EF 60% US ABDOMEN LIMITED 02/27/2024 small amount of ascites, <500 cc Social History/Disposition Lives with: Family (mom and brother) (01/17/25 09) Assistance available: (very limited as brother mainly utilizes wheelchair and mother is >90 years old) (01/17/25934) Dwelling type: Single story home (01/17/25934) Entry steps: Ramp (01/17/25934) Inside steps: None (01/17/25934) Bedroom location: 1st floor (01/17/25934) Bath location: 1st floor full bath (01/17/25934) Prior Level of Function Reported by: Patient (01/17/25934) Ambulation: Ambulatory with device (01/17/25934) Ambulatory Device: Rollator (01/17/25934) Grooming: Independent (01/17/25934) Bathing: Independent (01/17/25934) Dressing: Independent (01/17/25934) Feeding: Independent (01/17/25934) Toileting: Independent (01/17/25934) Meal Prep: Assistance (01/17/25934) Homemaking: Assistance (01/17/25934) Shopping: Dependent (01/17/25934) Durable Medical Equipment at home: Rolling walker;Rollator;Straight cane;Shower chair;Grab bars (01/17/25934) Subjective: Pt supine in bed upon therapists arrival. Pt pleasant and agreeable to occupational therapy services, stating "I just feel like I'm weak from laying around". Pain: No complaints of pain Observations Consciousness: Alert (01/17/25934) Orientation: Oriented times 4 (01/17/25934) Psychosocial: Patient can converse in a social setting;Patient can communicate basic needs (01/17/25934) Sitting posture: Forward head;Rounded shoulders (01/17/25934) Standing posture: Forward head;Rounded shoulders (01/17/25934) Safety awareness: The Patient verbalizes insight of current deficits.;The Patient demonstrates carryover of insight during functional tasks.;Needs cueing supervision. (01/17/25934) Other Findings Endurance: Functional activity;Fair (01/17/25934) Light touch sensation: LUE;RUE;Intact (01/17/25934) Coordination: LUE;RUE;Intact (01/17/25934) Tone: Normal tone (01/17/25934) Edema: No edema noted (01/17/25934) Current Functional Status: Bilateral Upper Extremity Range of Motion: WFL (01/17/25934) Strength Assessment: Deficits noted (01/17/25934) LUE: Shoulder;Elbow;Grasp;4/5 (01/17/25934) RUE: Shoulder;Elbow;Grasp;4/5 (01/17/25934) Self Care Able to provide self care: Yes (01/17/25934) Feeding: Supervision (Please comment) (for set-up assistance) (01/17/25934) Grooming: Supervision (Please comment) (to wash face) (01/17/25934) Toileting: Minimal Assistance (for posterior hygiene and to iris a new brief) (01/17/25934) Dressing Upper Body: Supervision (Please comment) (to iris a new gown) (01/17/25934) Lower Body: Moderate Assistance (to iris socks) (01/17/25934) Functional Ambulation Assistive Device: Rolling walker (01/17/25934) Distance in feet:: 25 (x2) (01/17/25934) Level of Assistance: Contact Guard (to close supervision) (01/17/25934) Bed Mobility Supine-Sit: Supervision (Please comment) (01/17/25934) Sit-Supine: Supervision (Please comment) (01/17/25934) OT Transfers Sit-Stand: Minimal Assistance (01/17/25934) Stand-Sit: Contact Guard (01/17/25934) Toilet: Minimal Assistance (01/17/25934) Balance Sit (Static): Fair (01/17/25934) Sit (Dynamic): Fair (01/17/25934) Stand (Static): Fair (01/17/25934) Stand (Dynamic): Fair (- to fair) (01/17/25934) Alarm Status Patient positioned in: Bed (01/17/25934) With: Bed alarm intact and functioning and call obregon in reach (01/17/25934) Patient and Family Goals: to get well and to return home Patient Education Education Topic: Role of OT;Plan of care goals (01/17/25934) Review of Precautions: Safety;Fall (01/17/25934) Method of Education: Verbalized to patient (01/17/25934) Education Provided to: Patient (01/17/25934) Response to Education: Receptive and agreeable to education (01/17/25934) Barriers to learning: None (01/17/25934) Preferred learning method: Combination (01/17/25934) Treatment Provided: Self [facility] Management Trainin minutes Evaluation Moderate Complexity 13 minutes - 27116: Patient was cooperative and pleasant during treatment session. Moderate complexity evaluation performed and 3-5 activity limitations were identified, including ADL deficit, functional mobility deficit, bed mobility deficit, decreased strength, decreased endurance, and impaired balance. Minimal or moderate modification of the functional task was necessary to complete the evaluation. Deficits Requiring O.T. Treatment: Deficits requiring O.T. treatment needs: ADL/self-care;Balance;Endurance;Functional mobility;IADL;Upper extremity strength;Safety;Weakness (01/17/25934) Assessment: Pt is a 59 year old male admitted to [facility] for hepatic cirrhosis with transplant work-up.Pt supine in bed upon therapists arrival. Pt reports he lives with his elderly mother and brother (wheelchair dependent) in a 1 story home with a ramp to enter. Prior to admission pt independent in his ADL tasks and was utilizing a rollator for functional mobility. Pt completed supine to sit transfe r with supervision with HOB elevated and use of bed railings to assist with righting trunk into neutral seated positioning and for advancing legs/hips towards EOB. Pt then tolerated ~5mins seated EOBwith fair seated balance to further increase postural strengthening and endurance during functionalADL/IADL tasks. Pt donned socks when seated EOB with mod A to thread socks over toes and back to heel region secondary to increased difficulty and instability with forward functional reaching. Pt able to wash face when seated EOB with set-up assistance to gather supplies. Pt completed sit to stand transfer from EOB with min A and then completed ~25ft of functional ambulation around room and restroom with rolling walker and contact guard assistance to ensure safety due to generalized weakness and instability. Pt able to complete own posterior hygiene, however required min A to iris a new briefto assist with threading it over feet and up to knees. Pt noted to require min A for sit > standfrom toilet with use of unilateral grab bar. Pt then ambulated back to bedside and further mobility limited at this time due to pt fatigue. Pt relieved supine in bed, call obregon in reach, all needs met. Currently, pt presents with difficulty in ADL completion and functional mobility secondary to decreased strength, balance, and functional task endurance likely due to pt's current medical status. Pt would benefit from continued skilled OT services to further increase strength, endurance, and indep endence in ADL/IADL tasks and facilitate a safe transition to the next level of care. Please consider post-acute care services which may include home health, jail, outpatient therapy or inpatient rehabilitation. The level of care will be determined in collaboration with patient, family/caregiver and care team members. OT Goals: Upper Extremity Strength/ROM Pt will increase bilateral upper extremity strength by 1/2 muscle grade. ADL/IADL Tasks Pt will demonstrate upper body bathing with independence . Pt will demonstrate upper body dressing with independence . Pt will demonstrate lower body bathing with independence . Pt will demonstrate lower body dressing with independence . Pt will demonstrate toileting with independence . Pt will demonstrate grooming with independence . Bed Mobility/Functional Mobility Pt will complete supine to sit transfer with independence . Pt will complete sit to supine transfer with independence . Pt will complete rolling left/right with independence . Pt will complete functional mobility with least restrictive device with modified independence. OT Transfers Pt will demonstrate sit to stand transfers with modified independence. Pt will demonstrate bed to chair transfers with modified independence. Pt will demonstrate toilet transfers with modified independence. Pt will demonstrate tub bench/shower transfers with modified independence. Balance Pt will increase seated balance to fair+ during ADL tasks. Pt will increase standing balance to fair+ during ADL tasks. Activity Tolerance/Endurance Pt will increase activity tolerance to 15 min when in stance to increase overall independence and safety in ADL/IADL tasks Goal Time Frame: 10 visits Treatment Plan: Energy Conservation, Safety, Homemaking Skills, Bed mobility training, Functional Ambulation, Transfer training, Upper extremity strengthening, Balance activities, ADL training, and Endurance Anticipated Frequency (on eval): (1-5x/wk) (01/17/25 0443) AM-PAC Help From Another Person Eating Meals: A little (01/17/25934) Help From Another Person Taking Care of Personal Grooming: A little (01/17/25934) Help From Another Person To Put On/Take Off Upper Body Clothing: A little (01/17/25934) Help From Another Person To Put On/Take Off Lower Body Clothing: A lot (01/17/25934) Help From Another Person Toileting: A lot (01/17/25934) Help From Another Person Bathing: A little (01/17/25934) OT AM-PAC Score: 16 (01/17/25934) OT AM-PAC t-Scale Score: 35.96 (01/17/25934) A portion of this AM-PAC assessment not scored based on functional assessment, rather clinical decision making utilized based on current findings and/or prior level of function. Please refer to future AM-PAC calculations of functional ability as they become available. * Rhina Vargas, PT - 01/16/2025 12:09 PM EDTAssociated Order(s): ADULT PHYSICAL THERAPY CONSULT IP GENERAL EVALUATION - Physical Therapy [address] [address] Name: Satish Spencer Location: [facility] B331/A Date: 01/16/2025 Time: 12:57 PM Satish Spencer is a/an 59 year old male. Patient Status: Inpatient Insurance: Payor: [place] [employer] Plan: MIGUEL Product Type: *No Product type* Patient Seen: at bedside, nursing cleared patient for therapy Patient Identified By: Name, ID Band and Date Diagnosis: hepatic cirrhosis (01/16/251208) Status of treatment: Evaluation completed (01/16/251208) Orders: PT evaluation and treatment (01/16/251208) Precautions: Alarms;Safety (01/16/251208) Total Treatment Time--free text: 14 (01/16/251208) Past Medical History: Past Medical History: Diagnosis [...] 9.0 Hepatic encephalopathy (HCC) 03/28/2022 admitted [facility], ammonia 110 Hyperlipidemia LDL goal < 100 Infection due to human metapneumovirus (hMPV) 01/27/2020 COVID neg Ingrown toenail of both feet 04/04/2022 both big toenails trimmed for ingrown nails [place] 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 [facility] Past Surgical History: Past Surgical History: Procedure Laterality Date ABD/PELVIS CT W/O IV AND W/O PO CONTRAST 03/30/2010 [facility]iculitis, [facility] [facility] [facility] HEAD/BRAIN W/O CONTRAST MATERIAL 02/27/2024 no acute changes to explain encephalopathy COLONOSCOPY, DIAGNOSTIC (RECTUM) 06/07/2019 normal, repeat 5 yrs/[facility] COLONOSCOPY, DIAGNOSTIC (RECTUM) N/A 01/11/2024 hemorrhoids/recall 5 years/[place] COLORECTAL CANCER SCREEN; COLON 05/22/2010 wnl , [...] performed by Gerardo Workman MD at ENDOSCOPY [facility] EGD, FLEXIBLE, DIAGNOSTIC 07/04/2023 Portal hypertensive gastropathy., esophagus and duodenuum normal (EGD), FLEXIBLE, TRANSORAL, DIAGNOSTIC performed by Juli Krause DO at ENDOSCOPY [facility] EGD, FLEXIBLE, DIAGNOSTIC N/A 09/05/2024 moderate portal hypertensive gastropathy/recall 2 years/ESOPHAGOGASTRODUODENOSCOPY (EGD), FLEXIBLE,TRANSORAL, DIAGNOSTIC performed by Jayla Armstrong MD at OR [facility] FOBT (EIA) 08/27/2023 negative IR BIOPSY [...] small amount of ascites, <500 cc Subjective: Pt in bed and willing to get up to walk to the bathroom Social History/Disposition Lives with: Family (mom and brother) (01/16/251208) Assistance available: No (01/16/251208) Dwelling type: Single story home (01/16/25 120) Entry steps: Ramp (01/16/251208) Inside steps: None (01/16/251208) Bedroom location: 1st floor (01/16/251208) Bath location: 1st floor full bath (01/16/251208) Prior Level of Function Reported by: Patient (01/16/251208) Ambulation: Ambulatory with device (01/16/251208) Ambulatory Device: Rolling walker (01/16/251208) Devices at home: Rolling walker;Straight cane (01/16/251208) Observations Consciousness: Alert (01/16/251208) Orientation: Oriented times 4 (01/16/251208) Psychosocial: Patient can communicate basic needs (01/16/251208) Pain: No complaints of pain Range of Motion Range of Motion: WFL (01/16/251208) Strength Assessment Strength Assessment: Deficits noted (01/16/251208) WNL, except: LLE;RLE (01/16/251208) LLE: 4/5 (01/16/251208) RLE: 4/5 (01/16/251208) P.T. Bed Mobility Supine-Sit: Supervision (01/16/251208) Sit-Supine: Supervision (01/16/251208) Transfers Sit-Stand: Supervision (01/16/251208) Stand-Sit: Supervision (01/16/251208) Ambulation: Distance ambulated (feet): 25 ft Assistive Device: Rolling walker Assist: Supervision Balance Sit (Static): Good (01/16/251208) Sit (Dynamic): Good (01/16/251208) Stand (Static): Fair (F+) (01/16/251208) Stand (Dynamic): Fair (F+) (01/16/251208) Patient and or Family Goal(s): to return home Patient Education Review of Precautions: Safety (01/16/251208) Safety Awareness: Needs cueing supervision (01/16/251208) Preferred learning method: Combination (01/16/251208) Barriers to learning: Medical Status (01/16/251208) Method of Education: Verbalized to patient (01/16/251208) Topic of Education: Safety with mobility, Goals/plan of care, and Use of assistive device Method of Education: Verbal discussion and explanation provided to patient: verbalized understanding and or agreement of this information Treatment Provided: Evaluation Moderate Complexity 14 minutes - [id number]: Patient was cooperative and pleasant during treatment session. Moderate complexity evaluation performed and 1-2 personal factorsor comorbidities were identified that will impact plan of care, including cardiac history and cirrhosis. Patient presents with limitations in strength, bed mobility, transfers, gait, and balance, which will impact plan of care. These limitations will be addressed by the goals set for this patient. Alarm Status Patient positioned in: Bed (01/16/251208) With: Bed alarm intact and functioning and call [place] in reach (01/16/251208) Treatment Status: Treatment at bedside (01/16/251208) Goals: Demonstrate Bed Mobility with: Supine to Sit: independent (pt does 100%) Sit to supine: independent (pt does 100%) Demonstrate Transfers with: Sit to stand: independent (pt does 100%) Stand to sit: independent (pt does 100%) Bed to chair: independent (pt does 100%) Demonstrate Ambulation: assistive device: rolling walker distance in feet: 250 ft level of assistance on level surface: modified independent (with device or slow) Increase Strength of: BLE's to 5/5 Increase Balance: G dynamic standing Time Frame: 10 visits Assessment: Pt lives with his mom and brother in a 1 story home with ramp to enter and was using a wheeled walker for all ambulation this past month. He presented to the hospital on 01/14 with hepaticcirrhosis. Pt able to complete all bed mobility with supervision. He was also able to stand and ambulate with wheeled walker 25 ft to the bathroom supervision. He was able to complete toileting and stand from the toilet and ambulate with wheeled walker an additional 25 ft to the bed supervision as well. Pt required only supervision for sit to supine. Feel pt would benefit from PT services in order to increase overall functional mobility as well as activity tolerance. Please consider home with post-acute care services which may include home health or outpatient therapy. The level of care willbe determined in collaboration with the patient, family/caregiver and care team members. Deficits requiring P.T. treatment needs: Safety;Mobility;Balance;Weakness;Lower extremity strength (01/16/25 1209) Equipment Needs: Treatment Plan: Bed mobility training, Transfer training, Gait training, Strengthening exercises: BLE's, and Balance activities Anticipated Frequency (on eval): (1-5 times a week) (01/16/25 1209) AM PAC Score with Stairs: 19 A portion of this AM-PAC assessment not scored based on functional assessment due to no assessment of elevations; rather clinical decision making utilized based on current findings and/or prior levelof function. Please refer to future AM-PAC calculations of functional ability as they become available. * Yesy Sloan RDN - 01/15/2025 12:45 PM EDT CLINICAL NUTRITION CONSULT/PROGRESS NOTE [address] [place] [address] Name: Satish Spencer Location: [facility] B331/A Date: 01/15/2025 Time: 12:46 PM How patient was identified (select 2): Medical record number and Name Discussed in interdisciplinary rounds: No Satish Spencer is a 59 year old male being seen for unable to answer. Primary Diagnosis: Decompensated hepatic cirrhosis. Other pertinent information: The pt reported that his appetite has been decreased. He eats well theday of his paracentesis but appetite starts to decline the day after up until he receives paracentesis again. Denies nausea, vomiting, constipation and diarrhea. Last bowel movement was today. Last pa racentesis was 01/13 with 7L removed. No known food allergies. Regular diet at home. Does not like Boost drinks. The pt likes raw vegetables but dislikes cooked vegetables. Does not like chicken as itis to dry. Does have some issues with chewing foods due to receeding gums. NUTRITION ASSESSMENT: Past medical/surgical history and medications reviewed. Food/Nutrition-Related History Diet: NPO Previously followed diet: Regular Food Allergies/Intolerances: None Adult Energy Intake: Less than 75% of estimated energy requirement for greater than 1 month (moderate/severe, chronic illness). Oral Nutrition Supplement (ONS): None Pertinent medications/vitamins/minerals/supplements: Novolog, Lantus, Culturelle, Lactulose (30 gm)TID, Demadex (20 mg), Vitamin C (1000 mg) Pertinent Biochemical Data: Latest Reference Range & Units 01/14/25 22:24 01/15/25 06:14 SODIUM 135 - 146 mmol/L 125 (L) 122 (L) - hyponatremia Nutrition-Focused Physical Findings: Appearance: Jaundice Respiratory support: Supplemental O2 Delivery: Room Air, None Nasal/Oral: No issues identified Digestive: Appetite fair Last Bowel Movement: 01/15/25 (01/15/25 0300) Cognition: Awake, alert Skin: Intact Nutrition Focused Physical Exam: completed on 01/15/2025 Subcutaneous Fat Loss: Orbital fat pads: Mild Buccal fat: WNL Tricep: Mild Rib: Unable to assess Muscle Loss: Temples: Mild Clavicles: Mild Shoulders: Mild Scapula: Mild Interosseous: Moderate Quadriceps: Unable to assess Calves: Unable to assess Edema Location: Other - describe (abd) (01/15/25728) Edema Assessment: +2 - Description (01/15/25728) Anthropometrics Measurements Height: 177.8 cm (5' 10") (01/14/252013) Admission weight: 105.8 kg Weight: 106.6 kg (235 lb 0.2 oz) (01/15/25215) BMI: 33.47 (01/14/252013) Usual Body Weight: Unknown dry weight (pt unable to provide); 105 kg - weight s/p paracentesis [place] weight: 78.7 kg [place] Weight Based on BMI: 24.9 Interpretation of Weight Change Prior to Admission: Change likely secondary to fluid Nutrition Prescription: Energy needs: 25-30 Kcal/kg Kcal/day: 4946-9888 Based on [place] weight (78.7 kg ) - due to unknown dry weight Protein needs: 1.3-1.5 gm/kg Protein: 102-118 Based on [place] weight (78.7 kg) Fluid needs: 30 ml/kg Fluid: 2361 ml/day Based on [place] weight (78.7 kg) Malnutrition: Malnutrition Present: Yes (01/15/251526) Adult Malnutrition Classification: Moderate (01/15/251526) Malnutrition Characteristics: Fat loss;Muscle loss;Inadequate energy intake (01/15/251526) NUTRITION DIAGNOSIS: Malnutrition moderate related to chronic illness as evidenced by patient consuming less than 75% ofestimated energy requirements x 1 month, mild fat loss, and mild muscle loss. Altered nutrition-related laboratory values related to decompensated hepatic cirrhosis as evidencedby need for nutrient restricted diet upon diet advancement. Goals: Diet advancement or initiation of enteral/parenteral nutrition within 24-48 hours. NUTRITION INTERVENTION/PLAN: Continue to monitor NPO/clear liquid status Clinical Nutrition Recommendations: Diet: Advance diet when clinically feasible - Recommend 2 Gram Sodium, Consistent Carbohydrate (4 choices) diet when appropriate. - Mighty Shake (1/2 cup provides 220 calories, 6 grams protein, 33 grams carbohydrate) with meals when diet is advanced. NUTRITION MONITORING AND EVALUATION: NPO status/diet advancement and tolerance Lab values warranting change with MNT Weight for trends Plan follow-up: Will follow and adjust nutrition plan of care as medical condition requires. Please contact for change(s) in patient condition requiring earlier intervention. Yesy Sloan RDN, LDN Registered Dietitian [employer] Senior Clinical Nutrition Services [facility] | Phone: [phone] * Denise CastroCONCHIS - 01/15/2025 12:34 PM EDTAssociated Order(s): THORACIC SURGERY CONSULT IP CONSULT - Thoracic Surgery [facility]-[address] [address] Name: Satish Spencer Location: [facility] B331/A Date: 01/15/2025 Time: 12:35 PM REQUESTING SERVICE: Medicine REASON FOR CONSULT: Chest tube management HISTORY OF PRESENT ILLNESS: Satish Spencer is a 59 year old male with a history of liver cirrhosis 2/2 GONZALES, HTN, HLD, T2DM, Diverticulosis, aortic stenosis, hepatic encephalopathy, ascites, and HCC s/p TACE. Thoracic surgery isconsulted for chest tube management following a transfer to [facility] from [facility]. His mobility has recently been declining. He was previously using a cane. About a month ago he switched to a walker. He has had multiple falls that have be both caused by his decline in mobility and also contributed to his decline in mobility. His most recent fall was over the weekend prior to his paracentesis on 01/13. 01/13 he was getting a paracentesis. They removed 7 L and he experienced significant fatigue and lethargy that prompted labs. His hemoglobin was below 7 and he was sent to [facility] for a transfusion. During his ED workup they found he had rib fractures left lower and a large pleural effusion. [facility] placed a chest tube. He was experiencing pain and dizziness when the chest tube was draining. The tube was clamped and his symptoms have resolved. Today he denies shortness of breath. When the fluid was previously drained he reports that it did not help his breathing at all. Paracentesis is the only thing that gives him relief from his shortness of breath. He has had one previous thoracentesis. He told me that he has not been out of bed to walk around since he was admitted. 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) (POA: Yes) Ascites (POA: Yes) Chronic hyponatremia (POA: Yes) Umbilical hernia (POA: Yes) Hepatocellular carcinoma (HCC) (POA: Yes) Recurrent pleural effusion on left (POA: Yes) POA = Present On Admission [...] 9.0 Hepatic encephalopathy (HCC) 03/28/2022 admitted [facility], ammonia 110 Hyperlipidemia LDL goal < 100 Infection due to human metapneumovirus (hMPV) 01/27/2020 COVID neg Ingrown toenail of both feet 04/04/2022 both big toenails trimmed for ingrown nails [place] 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 [facility] PAST SURGICAL HISTORY: Past Surgical History: Procedure Laterality Date ABD/PELVIS CT W/O IV AND W/O PO CONTRAST 03/30/2010 diverticulitis, [facility] CHG CT HEAD/BRAIN W/O CONTRAST MATERIAL 02/27/2024 no acute changes to explain encephalopathy COLONOSCOPY, DIAGNOSTIC (RECTUM) 06/07/2019 normal, repeat 5 yrs/[facility] COLONOSCOPY, DIAGNOSTIC (RECTUM) N/A 01/11/2024 hemorrhoids/recall 5 years/[place] COLORECTAL CANCER SCREEN; COLON 05/22/2010 wnl , [...] performed by Gerardo Workman MD at ENDOSCOPY [facility] EGD, FLEXIBLE, DIAGNOSTIC 07/04/2023 Portal hypertensive gastropathy., esophagus and duodenuum normal (EGD), FLEXIBLE, TRANSORAL, DIAGNOSTIC performed by Juli Krause DO at ENDOSCOPY [facility] EGD, FLEXIBLE, DIAGNOSTIC N/A 09/05/2024 moderate portal hypertensive gastropathy/recall 2 years/ESOPHAGOGASTRODUODENOSCOPY (EGD), FLEXIBLE,TRANSORAL, DIAGNOSTIC performed by Jayla Armstrong MD at OR [facility] FOBT (EIA) 08/27/2023 negative IR BIOPSY 10/04/2024 IR CANCER CHEMO EMBOLIZATION (TACE) 08/02/2023 IR CANCER CHEMO EMBOLIZATION (TACE) 04/11/2024 IR PROCEDURE NOT PERFORMED DOCUMENTATION ONLY 06/18/2024 MRI ABDOMEN W CONTRAST 06/09/2023 2 spots in liver suggestive of hepatocellular carcinoma, varices, GB thickened, splenomegaly. cirrhotic liver STRESS ECHO (EXERCISE) 11/30/2006 normal, EF 60% US ABDOMEN LIMITED 02/27/2024 small amount of ascites, <500 cc SOCIAL HISTORY: Social History Tobacco Use Smoking status: Never Smokeless tobacco: Former Types: Chew Quit date: 05/18/2005 Vaping Use Vaping status: Never Used Substance Use Topics Alcohol use: Not Currently Comment: quit "2001ish" Drug use: No FAMILY HISTORY: Family History Adopted: Yes Problem [...] Brother Leoncio No Known Problems Brother Mathew ALLERGIES: Aspirin and Salicylates ROS: Any pertinent positives are noted in the HPI; all others are negative. PHYSICAL EXAMINATION: Most Recent Vital Signs: BP: 103 mmHg/71 mmHg (01/15/25951) Pulse: 85 (01/15/25951) Resp: 19 (01/15/25951) Temp: 36.39 C (01/15/25951) Temp Summary: Temp Min: 35.5 °C (95.9 °F) Max: 36.4 °C (97.5 °F) SpO2: 98 % (01/15/25951) O2 flow rate: Supplemental O2 Delivery: Room Air, None (01/15/25951) Constitutional: (+) chronically ill CV: normal rate and rhythm, no murmur, gallops or rub Chest: normal respiratory effort, (+)diminished lung sounds on the left. Abdomen: (+) distended, soft, ascites present Extremities: (+) b/l LE edema, jaundice Skin: warm, dry, intact: Neuro: alert, oriented to person, place, and time LABS: Labs reviewed as indicated below: - WBC 6.84 - Hgb 8.1 - Ca 8 - Sodium 122 - Protein 5.2 - INR 2.0 - Albumin 2.2 - AST 53 - ALT 37 - Alkaline Phosphatase 151 - Bilirubin, total 3.0 IMAGING: CT 01/15: -Pending completion CXR 01/14: - Small left pleural effusion - Small amount of the left chest tube in place CT 12/25/2023: - Small left pleural effusion CT 09/18/2023: - Moderate sized pleural effusion IMPRESSION and PLAN: Satish Spencer is a 59 year old male with an extensive past medical history. [facility] He has a chest tube in place that medicine consulted thoracic surgery for management. He has had an effusion on imaging for over a year leading to a diagnosis of achronic hepatic hydrothorax. He denies any shortness of breath and reports that the draining of the effusion does not provide him with any relief. He experiences pain and dizziness when the chest tube is unclamped. He reports that he is currently very comfortable. - Currently the chest tube is clamped with thin serous fluid in the tube above the clamp. I unclamped the tube to assess for an air leak. An air leak was absent. - Removed chest tube. It is providing him no benefit and he has been stable with the tube clamped. Intermittent thoracentesis for shortness of breath is appropriate. A chest tube is not appropriate for patients with a Chronic hepatic hydrothorax. There is an increased risk for infect, a large volume loss that can lead to protein and electrolyte loss in turn causing an imbalance). - Continue hepatology work up - OOB as tolerated. Ambulate when able - Pulmonary hygiene to include incentive and flutter. - Update CT imaging to evaluate effusion and chest tube. CONCHIS Marquez 01/15/2025 1:12 PM I spent a total of 70 minutes coordinating, documenting, and providing care for this patient excluding time spent in the performance of separately billed services or time spent by another provider/QHP. Cosigned by Maximo Vargas MD at 01/16/2025 6:48 PM EDT * Dony Hansen MD - 01/15/2025 8:23 AM EDTAssociated Order(s): HEPATOLOGY CONSULT IP Images from the original note were not included. CONSULT - Hepatology [facility]-[address] [address] Name: Satish Spencer Location: [facility] B331/A Date: 01/15/2025 Time: 8:23 AM REQUESTING SERVICE: Medicine REASON FOR CONSULT: Pt with history of liver cirrhosis 2/2 GONZALES, with increased frequency of paracentesis required, transferred from [facility] for evaluate of TIPS procedure HPI: Satish Spencer is a 59 year old male with decompensated MASH cirrhosis with ascites and prior hepatic encephalopathy (2 admissions for HE in 2023) and esophageal varices - currently being evaluated for liver transplant, HCC ( two lesions in right hepatic lobe 2.8 x 2.4 and 1.1 x 1.2 cm (both LIRADS 5)) s/p bland embolization 08/21 and TACE 05/22 with repeat MRI 10/2024 with residual/recurrent tumor currently on SBRT (2/5 completed) as bridge to transplant, moderate , chronic hyponatremia, T2DM, JLD, HTN and known rib fractures secondary to falls who initially in the ED at [facility] with significant lethargy and abnormal labs with anemia at 6.3 (after a recent paracentesis with 7 L removed) found to have a left-sided effusion with the opacification concerning for hemothorax. Underwent chest tube placement and received 1 unit PRBCs. He was evaluated by the Gastroenterology team at [facility] in the who recommended transferred to [facility] for evaluation for TIPS Per the patient he denies any abdominal pain, fevers or recent illnesses. Reports he has been having some abdominal pressure from the ascites. Usually goes every 5 days or once per week for therapeutic paracentesis with removal of around 7 L each session. Reports he has not had any recent episodes of melena or hematochezia. Has no recent hospitalizations this year for hepatic encephalopathy but previously used to be admitted with hepatic encephalopathy every 5-6 months. Last bowel movement was yesterday. Has been undergoing outpatient transplant evaluation. 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 [facility] Past Surgical History: Past Surgical History: Procedure Laterality Date ABD/PELVIS CT W/O IV AND W/O PO CONTRAST 03/30/2010 diverticulitis, [facility] CHG CT HEAD/BRAIN W/O CONTRAST MATERIAL 02/27/2024 no acute changes to explain encephalopathy COLONOSCOPY, DIAGNOSTIC (RECTUM) 06/07/2019 normal, repeat 5 yrs/[facility] COLONOSCOPY, DIAGNOSTIC (RECTUM) N/A 01/11/2024 hemorrhoids/recall 5 years/[place] COLORECTAL CANCER SCREEN; COLON 05/22/2010 wnl , [...] performed by Gerardo Workman MD at ENDOSCOPY [facility] EGD, FLEXIBLE, DIAGNOSTIC 07/04/2023 Portal hypertensive gastropathy., esophagus and duodenuum normal (EGD), FLEXIBLE, TRANSORAL, DIAGNOSTIC performed by Juli Krause DO at ENDOSCOPY [facility] EGD, FLEXIBLE, DIAGNOSTIC N/A 09/05/2024 moderate portal hypertensive gastropathy/recall 2 years/ESOPHAGOGASTRODUODENOSCOPY (EGD), FLEXIBLE,TRANSORAL, DIAGNOSTIC performed by Jayla Armstrong MD at OR [facility] FOBT (EIA) 08/27/2023 negative IR BIOPSY 10/04/2024 IR CANCER CHEMO EMBOLIZATION (TACE) 08/02/2023 IR CANCER CHEMO EMBOLIZATION (TACE) 04/11/2024 IR PROCEDURE NOT PERFORMED DOCUMENTATION ONLY 06/18/2024 MRI ABDOMEN W CONTRAST 06/09/2023 2 spots in liver suggestive of hepatocellular carcinoma, varices, GB thickened, splenomegaly. cirrhotic liver STRESS ECHO (EXERCISE) 11/30/2006 normal, EF 60% US ABDOMEN LIMITED 02/27/2024 small amount of ascites, <500 cc Social History: Social History Tobacco Use Smoking status: Never Smokeless tobacco: Former Types: Chew Quit date: 05/18/2005 Vaping Use Vaping status: Never Used Substance Use Topics Alcohol use: Not Currently Comment: quit "2001" Drug use: No Family History: Family History Adopted: Yes Problem Relation Name [...] Brother Bill No Known Problems Brother Mathew Allergies: Aspirin and Salicylates ROS: As above otherwise negative PHYSICAL EXAMINATION: Most Recent Vital Signs: BP: 103 mmHg/68 mmHg (01/15/25542) Pulse: 88 (01/15/25542) Resp: 18 (01/15/25542) Temp: 35.89 C (01/15/25542) Temp Summary: Temp Min: 35.5 °C (95.9 °F) Max: 35.9 °C (96.6 °F) SpO2: 99 % (01/15/25542) O2 flow rate: Supplemental O2 Delivery: Room Air, None (01/15/25542) Vital Signs Last 24 Hours: Systolic BP: Most Recent Systolic BP Av.7 mmHg Min: 103 mmHg Max: 109 mmHg Temperature: Most Recent Temperature Av.8 C Min: 35.5 C Max: 35.89 C Pulse: Pulse Av Min: 88 Max: 100 Respirations: Resp Av Min: 18 Max: 18 SpO2: SpO2 Av % Min: 97 % Max: 99 % Constitutional: (+) chronically ill, (+) cachectic HEENT: normal: normocephalic, atraumatic; no masses, tenderness, or adenopathy Eyes: no scleral icterus, redness, or injection Neck: supple, normal range of motion CV: normal rate and rhythm, no murmur, gallops or rub Chest: normal respiratory effort, lungs clear to auscultation with equal chest exertion Abdomen: Distended with ascites, soft, nontender Extremities: no clubbing, cyanosis, or edema LABS: Labs reviewed. Lab results within last 7 days (see chart for full results) Units 01/15/25 0614 01/14/25 2224 Protein g/dL 5.2* 5.1* Bilirubin, Total mg/dL 3.0* 2.8* Alkaline Phosphatase U/L 151* 148* AST U/L 53* 51* ALT U/L 37 38 Lab results within last 7 days (see chart for full results) Units 01/15/25 0614 01/14/25 2224 01/13/25 0000 HGB g/dL 8.1* 8.0* 6.9* HCT % 24.6* 24.1* -- WBC K/uL 6.84 9.74 -- PLT K/uL 80* 81* -- Lab results within last 7 days (see chart for full results) Units 01/15/25 0614 01/14/25 2224 01/13/25 0000 SODIUM mmol/L 122* 125* -- POTASSIUM mmol/L 3.8 4.1 3.9 CHLORIDE mmol/L 90* 93* -- CO2 mmol/L 20* 23 -- BUN mg/dL 19 20 -- CREATININE mg/dL 0.9 1.0 0.98 IMPRESSION: Satish Spencer is a 59 year old male with decompensated MASH cirrhosis with refractory ascites and prior hepatic encephalopathy (2 admissions for HE in 2023) and esophageal varices - currently being evaluated for liver transplant, HCC ( two lesions in right hepatic lobe 2.8 x 2.4 and 1.1x 1.2 cm (both LIRADS 5)) s/p bland embolization 08/21 and TACE 05/22 with repeat MRI 10/2024 with residual/recurrent tumor currently on SBRT (2/5 completed) as bridge to transplant admitted to [facility] for evaluation for TIPS Patient has refractory ascites requiring frequent paracentesis (up to every 5 days). His picayune MELD score is at 18 (borderline for consideration of TIPS) with Meld 3.0 score of 26. He does have aortic stenosis noted on TTE discussed with cardiology as it may increase risk for TIPS. Patient previously evaluated by transplant and was awaiting further cardiac workup which has been completed. Given his high MELD he would benefit from a transplant evaluation prior to candidacy for TIPS. He has had notable decline in functional status with significant frailty which may overall affect his candidacy for transplant. Additionally noted to have peritoneal studies consistent with SBP, started on appropriate abx coverage. RECOMMENDATIONS/PLAN: - Avoid B-Blockade - Recommend increasing Midodrine to 10 TID - c/w Lactulose - titrate to 3-5 liquid loose BM per day - cw Rifaximin 550 BID - c/w guest experience captain Torsemide 20 QD (previously intolerant of Furosemide/Aldactone) - c/w CTX 2g for SBP - recommend Fluid restriction for hyponatremia (2000 ml) - Daily MELD 3.0 labs - Recommend transplant service consult - Recommend PT/OT and ui application developer consult I have discussed the case with my attending, Dr Hansen. Attending Attestation: I have discussed the patient's management with the medical trainee and agree with the note. Please refer to the documented findings and plan of care. The patient's bedside service today consisted of an evaluation. I was present and confirmed the findings of the history and exam. documented in this encounter Nursing Notes * Mary Ellen Yuen RN - 01/27/2025 12:54 PM EDT SBAR FOR POST INTERVENTIONAL RADIOLOGY PROCEDURE Patient Name: Satish Spencer Age:[age] year old Sending to: BP 331 Procedure: TIPS (R IJ access) and paracentesis - 2400ml removed Medications Administered: yes: See MAR Special Instructions: Keep dressing on for 2 days, monitor for bleeding, instruct pt to apply pressure to neck site during coughing, sneezing, or bowel movements. Concerns: no Report from: Franci Yuen RN Phone extension: [phone] Patient sent via: Bed Reason for SBAR handoff: Transfer Patient meets discharge criteria for Interventional Radiology. Vital signs stable. Dressing clean, dry, and intact. Patient awake and oriented to pre procedure baseline. Patient with no nausea/vomiting. All belongings sent with patient. Vital Signs: BP: 80/46 (01/27/25 1245) Temp: 36 °C (96.8 °F) (01/27/25 124) Pulse: 94 (01/27/25 124) Resp: 15 (01/27/25 124) SpO2: 97 % (01/27/25 124) Glucose (Bedside): 106 (01/27/25 0800) Weight: 103.9 kg (229 lb 0.9 oz) (01/27/25 0500) Height: 177.8 cm (5' 10") (01/14/252013) Neurological: Donovan Coma Scale - For patients greater than two years old Eyes Open: To verbal/shout (01/27/25 121) Best Verbal Response: Verbally appropriate for age (01/27/25 1210) Best Motor Response: Obeys commands appropriate for age (01/27/25 1210) Coma Score: 14 (01/27/25 121) Activity: Four Extremities LOC: Fully Awake or Pre-Anesthetic Level of Consciousness Pulse Ox: Greater than or equal to 95% w/o O2 Temp (C): Greater than or equal to 36 deg C BP: Less than (+/-) 20% Pulse: Less than (+/-) 20% Resp: Deep Breathe and Cough Freely Total: 14 (01/27 1245) Respiratory: Pain Assessment Flowsheet Row Most Recent Value Pain Assessment Scale [facility] Adult Scale 0-10 (18 years and older) Pain Score 4 (moderate pain) Lines: Peripheral Line Left;Lower Arm 24 Gauge (Active) Status Capped/Locked;Flushes easily;Alcohol disinfectant cap;Cap changed 01/27/25 08 Tubing Changed N/A 01/27/25799 Phlebitis Scale 0 01/27/25799 Infiltration Scale 0 01/27/25799 Site Description (Other) Without redness, swelling or drainage 01/27/25799 Site Intervention Flushed 01/27/25799 Dressing Assessment Dressing clean, dry, and intact 01/27/25799 Dressing Intervention None required 01/27/25799 Dressing Change Due 01/23/25 01/23/25 1600 Number of days: 11 Peripheral Line Right Antecubital 20 Gauge (Active) Status Positive blood return;Flushes easily 01/27/25904 Tubing Changed Yes 01/27/25904 Phlebitis Scale 0 01/27/25904 Infiltration Scale 0 01/27/25904 Site Description (Other) Without redness, swelling or drainage 01/27/25904 Site Intervention None required 01/27/25904 Dressing Assessment Dressing clean, dry, and intact;Transparent dressing 01/27/25904 Dressing Intervention Changed 01/27/25904 Dressing Change Due 01/27/25 01/23/25 1600 Number of days: 7 Peripheral Line Right Foot 18 Gauge (Active) Number of days: 0 Arterial Line Left Radial (Active) Number of days: 0 * Lata Gupta RN - 01/27/2025 9:51 AM EDT information assurance analyst note Name: Satish Spencer Date: 01/27/2025 Time: 9:52 AM Procedure: Paracentesis and Transjugular Intrahepatic Portosystemic Shunt Creation Patient ID band checked using two identifiers. Patient placed on procedure table, supine position, with comfort measures intact and safety strap in place. Hemodynamic monitoring placed and initiated by anesthesia. Patient denies any current complaints at current time. RT staff prepares and preps for procedure. Procedure by physician. 10:40 AM Timeout performed by Dr. Gerry Padgett 10:42 AM Procedure started by Dr. Gerry Padgett and Librado Francois , and scrubbed RT Jenifer Acevedo. 1% buffered lidocaine given by clinician at right site. US utilized for anatomical analysis of patient and access needle guidance. 10:43 AM Access obtained, attached to vacuum container. Images obtained. 10:44 AM Ultrasound utilized for anatomical analysis of patient and access needle guidance. 1% buffered lidocaine given by doctor at right site. 10:46 AM Access obtained. Guidewire inserted. Images obtained. 10:50 AM Pre TIPS measurements: Right atrial pressure 14 mmHg. 11:05 AM Imaging continues. 11:20 AM Access obtained into portal access. Images obtained. 11:26 AM Pre TIPS measurements: Portal pressure 26 mmHg. 11:30 AM Imaging continues. 11:34 AM Image guided plasty performed by doctor. 11:39 AM Stent (Independence Viator TIPS, REF: [id number], EXP: ) placed, see Implant record. Images obtained. 11:40 AM Report given to ELOISE Guido. information assurance analyst note 11:40 AM Report received from ELOISE Trujillo. 11:42 AM Balloon-assisted expansion of stent performed. Images obtained. 11:47 AM Post TIPS measurements: Portal pressure: 24 mmHg. Right atrial pressure: 18 mmHg. Images obtained. 11:49 AM Images with contrast obtained. 11:51 AM Access removed and manual pressure to site. 11:52 AM Paracentesis access removed and manual pressure to site. 11:53 AM Hemostasis obtained at paracentesis site. Area cleaned. Gauze and medipore dressing applied. 2,400 mL ascites removed. 11:58 AM Hemostasis obtained at right neck site. Area cleaned. Gauze and tegaderm dressing applied. Patient tolerated procedure well without complications. All [...] the scrubbed RT and the operating physician. Anesthesia team managed hemodynamic monitoring and sedation throughout procedure. Total medications given - see anesthesia record for details Rocephin: 1 g 1% buffered lidocaine: 5 mL (right abdomen) 2 mL (right neck) Please see doctor's operative note for additional details. 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 * Level of Care: Med Surg [3] Vital Signs: BP: 91/63 (01/27/25 0700) Temp: 36.8 °C (98.2 °F) (01/27/25 0700) Pulse: 83 (01/27/25 0700) Resp: 20 (01/27/25 0700) SpO2: 100 % (01/27/25 0700) Glucose (Bedside): 106 (01/27/25 0800) Weight: 103.9 kg (229 lb 0.9 oz) (01/27/25 0500) Height: 177.8 cm (5' 10") (01/14/252013) * Yeimy Childress RN - 01/21/2025 5:59 PM EDT I met with Satish at his hospital bedside to discuss that his case was reviewed at the liver committee meeting last evening. He is aware that the transplant surgeons are in ongoing conversation with cardiology regarding cardiac clearance for possible TIPS placement and liver transplant listing. * Yeimy Childress RN - 01/17/2025 5:10 PM EDT Late note from 01/16/25 I met with Mr. Spencer at his hospital bedside. I re-introduced myself as it has been some time sincehe was seen for his initial liver transplant evaluation. He confirmed that he remains interested inbeing evaluated for transplant. We discussed the recent barriers that have occurred over the last few months in regards to completing his transplant evaluation. He is aware that his cardiac status was a limitation and verbalized frustration with trying to schedule repeat testing and then being admitted to the hospital. He is agreeable to have his recent testing reviewed by cariology during this inpatient admission and proceed with any additional testing if it is needed. We also discussed his liver lesion as noted on his recent MRI. He is currently in his [facility]. He shares that his activity level has recently declined and he is consistently using a cane for stability. He identified his brother Lj and [employer] as his main support persons. * Naheed Harding RN - 01/15/2025 8:10 PM EDT Occlusive dressing was changed and also covered with abd due to site becoming soaked with drainage after chest tube removal. * Shannan Andersen RN - 01/14/2025 9:05 PM EDT Dual Licensed Skin Assessment completed by Shannan Fuentes. The patient is/has a N/A Skin Breakdown (includes non blanchable erythema): Yes - Surgical/Procedural changes only. L side chest tube insertion site L upper side of abdomen from previous paracentesis Hernia on lower abdomen Ecchymosis noted on bilateral knees documented in this encounter Miscellaneous Notes * Ancillary Progress Note - Anita Amanda RN - 01/29/2025 9:06 AM EDT CARE MANAGEMENT - ADULT DISCHARGE NOTE [facility] [address] Name: Satish Spencer Location: [facility] B331/A Date: 01/29/2025 Time: 9:06 AM The following coordination of care and discharge plan has been coordinated with the care team, patient, family and/or caregiver according to the patients’ needs and preferences. Discharge Discharge Second Notice Important Message from Medicare delivered: Not Applicable (01/29/25904) Was Caregiver/Family/Facility contacted regarding discharge: Yes (01/29/25904) Discharge Transportation: Family/Friends drive (01/29/25904) Date of scheduled discharge transportation: 01/29/25 (01/29/25904) Patient declined post-hospital transition of care recommendation: N/A (01/29/25904) Final Discharge Plan (Complete only at time of Discharge): Home - Self Care (01/29/25904) Narrative: Patient to be d/c with no needs. Patient to be transported by family. Patient is agreeable to the above discharge plans. Patient has no further questions or concerns regarding plan of care or discharge. * Care Plan - Mike Rueda RN - 01/29/2025 4:28 AM EDT Clinical Goal(s): Patient's vital signs will remain stable this shift (01/28/251999) Possible barriers to meeting goal(s)/advancing plan of care: weakness Stability of the patient: Moderately stable - low risk of patient condition declining or worsening Summary regarding today's goal(s): Met: Patient's vitals remained stable this shift Recommendations: Continue plan of care, call obregon within reach, bed alarms on, hourly rounding * Care Plan - Sailaja Benson RN - 01/28/2025 3:31 PM EDT Clinical Goal(s): patient will remain free from falls (01/28/25 08) Possible barriers to meeting goal(s)/advancing plan of care: uses walker, large abdomen, weakness Stability of the patient: Moderately unstable - medium risk of patient condition declining or worsening Summary regarding today's goal(s): Met: patient didn't fall Recommendations: continue fall precautions * Ancillary Progress Note - Mai Sharma COTA - 01/28/2025 9:52 AM EDT PROGRESS NOTE - Occupational Therapy [facility] [place] [address] Name: Satish Spencer Location: [facility] B331/A Date: 01/28/2025 Time: 9:52 AM Satish Spencer is a 59 year old male. Patient Status: Inpatient Insurance: Payor: [place] [employer] Plan: [id number] Product Type: *No Product type* Patient Seen: at bedside, nursing cleared patient for therapy Patient Identified By: Name, ID Band and Date Diagnosis: hepatic cirrhosis (01/28/25951) Status of treatment: Treatment completed (01/28/25951) Orders: OT evaluation and treatment (01/28/25951) Weight Bearing Status: Weight bearing as tolerated (01/28/25951) Precautions: Alarms;Falls;Safety (01/28/25951) Total Treatment Time: 20 (01/28/25951) Subjective: agreeable Pain: No complaints of pain Observations Consciousness: Alert (01/28/25951) Orientation: Oriented times 4 (01/28/25951) Psychosocial: Patient can communicate basic needs;Patient can converse in a social setting (01/28/25951) Sitting posture: Forward head;Rounded shoulders (01/28/25951) Standing posture: Forward head;Rounded shoulders (01/28/25951) Safety awareness: The Patient verbalizes insight of current deficits. (01/28/25951) Other Findings Endurance: Fair (01/28/25951) Light touch sensation: LUE;RUE;Intact (01/17/25934) Coordination: LUE;RUE;Intact (01/17/25934) Tone: Normal tone (01/17/25934) Edema: No edema noted (01/17/25934) Current Functional Status: Activities of Daily Living: Self Care Able to provide self care: Yes (01/17/25934) Feeding: Not Tested (01/28/25951) Grooming: Not Tested (declined) (01/28/25951) Toileting: Not Tested (declined) (01/28/25951) Dressing Upper Body: Modified Independent (gown) (01/28/25951) Lower Body: Supervision (Please comment) (socks) (01/28/25951) Functional Ambulation Assistive Device: Rolling walker (01/28/25951) Distance in feet:: 410 (01/28/25951) Level of Assistance: Contact Guard (01/28/25951) Bed Mobility Supine-Sit: Modified Independent (01/28/25951) Sit-Supine: Modified Independent (01/28/25951) OT Transfers Sit-Stand: Contact Guard (01/28/25951) Stand-Sit: Supervision (Please comment) (01/28/25951) Toilet: Not Tested (01/28/25951) Balance Sit (Static): Fair (+) (01/28/25951) Sit (Dynamic): Fair (01/28/25951) Stand (Static): Fair (-) (01/28/25951) Stand (Dynamic): Fair (-) (01/28/25951) Patient Education Education Topic: Role of OT;Plan of care goals;Energy conservation (01/28/25951) Review of Precautions: Safety;Fall (01/28/25951) Review of Exercises: (NT) (01/28/25951) Review of Home Program: Yes (01/22/251029) Teachback Test Complete: Yes (01/22/251029) Method of Education: Verbalized to patient (01/28/25951) Education Provided to: Patient (01/28/25951) Response to Education: Receptive and agreeable to education (01/28/25951) Barriers to learning: None (01/28/25951) Preferred learning method: Combination (01/28/25951) Alarm Status Patient positioned in: Bed (01/28/25951) With: Pressure pad alarm intact and functioning and call obregon in reach (01/28/25951) Treatment Provided: Self [facility] Management Trainin minutes Upper Extremity exercise Demonstrate Exercises: LUE;RUE;Shoulder;Elbow;Flexion;Extension;Abduction;Adduction;Internal/external rotation;Scapular protraction/retraction (01/22/251029) Peformed in: Supine (01/22/251029) Deficits requiring O.T. treatment needs: ADL/self- care;Balance;Endurance;Functional mobility;IADL;Upper extremity strength;Safety;Weakness (01/28/25951) Assessment: Pt seen in the room for therapy. A&O x 4. Pt reported he may leave this date or tomorrow. Bed mobility completed with head of bed elevated, maintaining Mod I level. Pt sat edge of bedfor upper and lower body dressing reach Mod I for gown and SPV to change his socks. Sit to stand from bed to the rolling walker required Contact Guard due to posterior balance. Pt ambulated room <> hallway needing Contact Guard due to slight loss of balance and overall balance deficits. Pt tolerated ambulation of 410' this session. Pt returned to his room and transferred to the bed. He was left with all needs met after returning to supine. Please consider post-acute care services which may include home health, jail, outpatienttherapy or inpatient rehabilitation. The level of care will be determined in collaboration with patient, family/caregiver and care team members. Plan: Anticipated Frequency (on eval): (1-5x/wk) (01/17/25934) Equipment Equipment used in Therapy: Rolling walker (01/28/25951) AM-PAC Help From Another Person Eating Meals: None (01/28/25951) Help From Another Person Taking Care of Personal Grooming: A little (01/28/25951) Help From Another Person To Put On/Take Off Upper Body Clothing: A little (01/28/25951) Help From Another Person To Put On/Take Off Lower Body Clothing: A little (01/28/25951) Help From Another Person Toileting: A little (01/28/25951) Help From Another Person Bathing: A little (01/28/25951) OT AM-PAC Score: 19 (01/28/25951) OT AM-PAC t-Scale Score: 40.22 (01/28/25951) HLM (Highest Level of Mobility) Goal: Level 6 walk 10 steps or more (01/28/25931) A portion of this AM-PAC assessment not scored based on functional assessment due to performing with staff prior to session; rather clinical decision making utilized based on current findings and/or prior level of function. Please refer to future AM-PAC calculations of functional ability as they become available. * Ancillary Progress Note - Yvette Leonard PTA - 01/28/2025 9:32 AM EDT PROGRESS NOTE - Physical Therapy [facility] [place] [address] Name: Satish Spencer Location: [facility] B331/A Date: 01/28/2025 Time: 9:32 AM Satish Spencer is a/an 59 year old male. Patient Status: Inpatient Insurance: Payor: [employer] Plan: MIGUEL Product Type: *No Product type* Patient Seen: at bedside, nursing cleared patient for therapy Patient Identified By: Name, ID Band and Date Diagnosis: hepatic cirrhosis (01/28/25931) Status of treatment: Treatment completed (01/28/25931) Orders: PT evaluation and treatment (01/28/25931) Weight Bearing Status: Weight bearing as tolerated (01/28/25931) Precautions: Alarms;Falls;Safety (01/28/25931) Total Treatment Time--free text: 20 (01/28/25931) Subjective: Patient was agreeable Pain: No complaints of pain P.T. Bed Mobility Supine-Sit: Modified Independent (01/28/25931) Sit-Supine: Modified Independent (01/28/25931) Transfers Sit-Stand: Contact Guard (01/28/25931) Stand-Sit: Contact Guard (01/28/25931) Ambulation: Distance ambulated (feet): 410 Assistive Device: Rolling walker Assist: Contact Guard Balance Sit (Static): (Fair+) (01/28/25931) Sit (Dynamic): Fair (01/28/25931) Stand (Static): (Fair-) (01/28/25931) Stand (Dynamic): (Fair-) (01/28/25931) Patient and or Family Goal(s): to get well Topic of Education: Safety with mobility Extremity Exercise Sitting: Hip;Knee;Ankle (01/28/25931) Hip : Bilateral LE;Flexion;1 set of 10 (01/28/25931) Knee : Bilateral LE;Flexion;Extension;1 set of 10 (01/28/25931) Ankle: Bilateral LE;Plantar flexion;Dorsiflexion;1 set of 10 (01/28/25931) Supine: Hip;Knee;Ankle (01/22/25943) Hip : Bilateral LE;Flexion;Adduction;Abduction;1 set of 10 (01/22/25943) Knee : Bilateral LE;Heel slide;1 set of 10 (01/22/25943) Ankle: Bilateral LE;Plantar flexion;Dorsiflexion;2 sets of 10 (01/22/25943) Method of Education: Verbal discussion and explanation provided to patient: verbalized understanding and or agreement of this information and demonstrated the exercise and or task Treatment Provided: Gait Training 20 minutes: gait training with rolling walker Alarm Status Patient positioned in: Bed (01/28/25931) With: Bed alarm intact and functioning and call [place] in reach (01/28/25931) Patient Education Review of Precautions: Safety;Fall (01/28/25931) Review of Exercises: Pt Demonstrated Exercise;Verbal Exercises Provided (01/28/25931) Safety Awareness: Patient verbalizes insight of current deficits;Patient demonstrates carryover of insight during functional tasks;Patient can communicate basic needs;Needs cueing supervision (01/28/25931) Preferred learning method: Combination (01/28/25931) Barriers to learning: Medical Status (01/28/25931) Method of Education: Verbalized to patient;Patient demonstrated task (01/28/25931) Assessment: Patient was found supine in bed upon arrival and agreeable to work with physical therapy services. Patient completed bed mobility with modified independence and completed a sit to stand transfer from the bed with a rolling walker and contact guard assistance. Noted patient had a posterior lean when initially standing. Patient ambulated 410 feet with a rolling walker and contact guard assistance. Noted patient had 1 loss of balance during ambulation requiring assistance to correct balance. Patient completed exercises seated at the edge of the bed to increase lower extremity strength (please see flowsheet). Ended session with patient supine in bed with pillows for comfort, bed alarm activated, and call obregon within reach. Please consider home with post-acute care services which may include home health or outpatient therapy. The level of care will be determined in collaboration with the patient, family/caregiver and care team members. Deficits requiring P.T. treatment needs: Safety;Mobility;Weakness;Balance;Range of motion;Endurance;Lower extremity strength (01/28/25931) Equipment needs: Rolling walker (01/28/25931) Plan: Continue with current treatment plan established on evaluation. AM PAC Score with Stairs: 19 A portion of this AM-PAC assessment not scored based on functional assessment; rather clinical decision making utilized based on current findings and/or prior level of function. Please refer to future AM-PAC calculations of functional ability as they become available. * Care Plan - Mike Rueda RN - 01/28/2025 4:35 AM EDT Clinical Goal(s): PAtient will remain free from fall and injury this shift (01/27/251946) Possible barriers to meeting goal(s)/advancing plan of care: weakness, admitting diagnosis Stability of the patient: Moderately stable - low risk of patient condition declining or worsening Summary regarding today's goal(s): Met: Patient remained free from fall and injury this shift Recommendations: Continue plan of care, call [place] within reach, hourly rounding, bed alarms on * Care Plan - Rafael Felix RN - 01/27/2025 7:00 PM EDT Clinical Goal(s): pt will remain free from falls (01/27/25 1600) Possible barriers to meeting goal(s)/advancing plan of care: weakness and pain Stability of the patient: Moderately stable - low risk of patient condition declining or worsening Summary regarding today's goal(s): Met: pt remained free from falls this shift Recommendations: continue fall precautions * Communication - Stephanie Brenner DO - 01/27/2025 2:30 PM EDT POST OP CHECK Procedure: TIPS Subjective Patient was seen and examined at bedside. Was resting comfortably in bed. Notes some abdominal pain. Denies chest pain, shortness of breath. Is awake, alert, oriented. Objective BP 92/56 | Pulse 95 | Temp 35.7 °C (96.3 °F) (Tympanic) | Resp 18 | Ht 1.778 m (5' 10") | Wt 103.9 kg (229 lb 0.9 oz) | SpO2 100% | BMI 32.87 kg/m² | BSA 2.27 m² Physical exam General: resting comfortably in bed, not in any acute distress Neck: supple, dressing to the left neck clean, dry, intact, no hematoma noted Resp: vesicular breath sounds bilaterally Cardio: S1/S2, no murmurs or gallops Abdomen: soft, non distended, no tenderness to palpation, bowel sounds present no rebound guarding or rigidity, paracentesis dressing is clean, dry, intact Extremity: warm, no edema, LUE with compression dressing in place, 2+ radial pulses bilaterally, sensation intact BUE, no hematoma noted, extremities warm Assessment and plan Satish Spencer 59 year old male admitted for decompensated cirrhosis now s/p TIPS -Diet: Started liquids. Advance diet as tolerated -DVT prophylaxis: holding -Pain management: oxycodone 5mg Q6 prn moderate pain, oxycodone 10mg Q6 prn severe pain -Rest of care as per am note Stephanie Brenner DO 01/27/2025 2:30 PM * Ancillary Progress Note - Anita Amanda RN - 01/27/2025 9:36 AM EDT CARE MANAGEMENT - ADULT TRANSITION NOTE [address] [address] Name: Satish Spencer Location: RADIOLOGY WAITING ROOM/IR Date: 01/27/2025 Time: 9:37 AM Risk Stratification Readmission Risk Score: 21.88 (01/27/25 0800) AM-PAC Score With Stairs : 20 (01/27/25 0432) Caregiver Information Emergency Contacts Name Relation Home Work Mobile Snow Spencer Other - (no specific identity) [phone] ZOHRA SPENCER Sibling [phone] Other Contacts Name Relation Home Work Mobile Lj Spencer Sibling [phone] Transition of Care Checklist Narrative: Patient was discussed during boost this AM. Per IDT, patient is not medically ready. Getting TIPs procedure done today and will need monitoring post procedure. No needs identified at this time, from home independently. CM will continue to follow. Anticipated Transportation at Discharge: family Patient/Family Expectations: home Transition Planning Additional Considerations: Care Management will continue to monitor and assist with discharge planning needs * Postprocedure Note - Librado Francois DO - 01/27/2025 9:30 AM EDT PROCEDURE NOTE - Interventional Radiology [address] [address] Name: Satish Spencer Location: RADIOLOGY WAITING ROOM/IR Date: 01/27/2025 Time: 11:59 AM PROCEDURE: Transjugular Intrahepatic Portosystemic Shunt Placement ENTRY LEVEL ACCOUNTING CLERK: Dr. Charles Padgett ASSISTANTS: Dr Librado Francois ANESTHESIA: general anesthesia COMPLICATIONS: none SPECIMEN: none tissue to surgical pathology ESTIMATED BLOOD LOSS: negligible FINDINGS: Successful Transjugular Intrahepatic Portosystemic Shunt Placement PLAN: Serial liver function and CBCs while patient remains hospitalized. 1 month follow up with abdominal ultrasound and labs. * Ancillary Progress Note - Yvette Leonard PTA - 01/27/2025 9:04 AM EDT PROGRESS NOTE - [place] [address] Name: Satish Spencer Location: RADIOLOGY WAITING ROOM/IR Date: 01/27/2025 Time: 9:04 AM Attempted to see patient for physical therapy however patient is currently off of the floor. Will continue to see patient as able. * Pre-Sedation Assessment - Gerry Padgett MD - 01/27/2025 8:46 AM EDT PRE-SEDATION ASSESSMENT PRE-SEDATION ASSESSMENT: Transjugular Intrahepatic Portosystemic Shunt Placement Paracentesis Level of sedation planned: Deep Patient's allergies reviewed: Yes H&P Review / Interval Note Documentation: I have reviewed the H&P previously performed, examined the patient today, and there are no new findings. Difficulty with sedation / anesthesia: No Sleep apnea: No History of snoring: Yes History of difficult intubation: No Decreased ROM neck flexion/extension: No Tracheal deviation: No Decreased ability to open mouth / TMJ: No Loose teeth / dentures / partial: No Congenital deformities / abnormalities: No Dysphagia: No Mallampati Classification: II - soft palate, uvula, fauces visible Chest: Clear Heart: Regular Rhythm Adequate Vascular Access: Yes ASA Risk Stratification (Select One): ASA 3 - Severe systemic disease, definite functional limitations The patient was identified and the procedure verified: Yes The patient was reevaluated immediately prior to the sedation: 01/27/2025 9:25 AM Briefly, 59 year old male patient with a history of HCC in segment /VII s/p TACE/bland embolization and now on SBRT, DM, aortic valve stenosis, HF, and decompensated MASH cirrhosis with recurrent ascites, originally transferred for anemia, SBP, and weakness. Interval repeat TTE continues to show moderate . Per GI, After further discussion with Cardiologyteam, the patient's aortic stenosis does not appear to be a barrier for his TIPS, however, it wouldlikely be too high risk for transplant surgery. However, aortic stenosis is not significant enough and would be too high risk for TAVR at this time. After further discussion with transplant surgery and Cardiology team, we will plan to move forward with TIPS placement during hospitalization. If patient were to decompensate from liver standpoint following the procedure, Cardiology agreeable to re-evaluate for TAVR at that time to help optimize the patient for possible transplant Patient is high risk for liver failure and cardiac decompensation/failure due to valvular disease. Cardiology, GI/hepatology, and transplant surgery are all on board, aware, and in agreement that TIPS is recommending at this time. Labs from 01/27/25 Scores Original MELD 18 MELD Na (UNOS version) 26 MELD 3.0 26 Survival Prediction 30 day 94.7% 60 day 85.5% FIPS index: 0.91 Overall Survival 1 month 3 Months 6 Months 89.2% 67.8% 55.5% * Care Plan - Rox Lagunas RN - 01/27/2025 4:52 AM EDT Problem: Pain & Impaired Comfort Goal: Patient's pain & discomfort is manageable. Outcome: Progressing Problem: Safety & Risk for Injury Goal: Patient will remain free from injury. Outcome: Progressing Clinical Goal(s): Patient will remain free of falls through out shift (01/26/25 2320) Possible barriers to meeting goal(s)/advancing plan of care: Disease process Stability of the patient: Moderately stable - low risk of patient condition declining or worsening Summary regarding today's goal(s): Met: Patient remains free of falls through out shift Recommendations: Continue with current treatment plan * Care Plan - Rox Lagunas RN - 01/26/2025 4:39 AM EDT Problem: Pain & Impaired Comfort Goal: Patient's pain & discomfort is manageable. Outcome: Progressing Problem: Safety & Risk for Injury Goal: Patient will remain free from injury. Outcome: Progressing Clinical Goal(s): Patient will remain free of falls through out shift (01/25/250) Possible barriers to meeting goal(s)/advancing plan of care: disease process, weakness Stability of the patient: Moderately stable - low risk of patient condition declining or worsening Summary regarding today's goal(s): Met: Patient remains free of falls through out shift Recommendations: Continue with current treatment plan * Care Plan - Mike Rueda RN - 01/25/2025 4:15 AM EDT Clinical Goal(s): Patient will remain free from fall and injury this shift (01/24/251999) Possible barriers to meeting goal(s)/advancing plan of care: incoming TIPS procedure Stability of the patient: Moderately unstable - medium risk of patient condition declining or worsening Summary regarding today's goal(s): Not Met: Patient remained free from fall and injury this shift Recommendations: Call obregon within reach, continue plan of care, bed alarms on, hourly rounding * Care Plan - Lesvia Castro RN - 01/24/2025 3:52 PM EDT Clinical Goal(s): patient will sit out in chair today (01/24/25 0700) Possible barriers to meeting goal(s)/advancing plan of care: patient needs assistance with walker. Stability of the patient: Moderately stable - low risk of patient condition declining or worsening Summary regarding today's goal(s): Met: 01/24/25 Recommendations: goal met. * Ancillary Progress Note - Avni Beckham II, RDN - 01/24/2025 11:56 AM EDT CLINICAL NUTRITION CONSULT/PROGRESS NOTE [facility] [place] [address] Name: Satish Spencer Location: [facility] B331/A Date: 01/24/2025 Time: 11:58 AM How patient was identified (select 2): date and Name Discussed in interdisciplinary rounds: No Satish Spencer is a 59 year old male being seen for follow-up Primary Diagnosis: A 59 year old male patient who presents with decompensated hepatic cirrhosis; paracentesis 01/17; pending TIPS procedure Other pertinent information: Patient reported appetite has been adequate. Patient eating mostly 100% of his meals. No issues with chewing or swallowing. No GI related symptoms/issues. Edema noted in lower extremities. Patient still willing to trial super food mashed potatoes w/ gravy to aid in meeting his necessary energy and nutrient requirements. NUTRITION ASSESSMENT: Past medical/surgical history and medications reviewed. Food/Nutrition-Related History Nutrition Support: None Diet: 1500 ml Fluid Restriction 4 Choices (60 gm) Consistent Carbohydrate Previously followed diet: Regular Food Allergies/Intolerances: Lactose intolerance Adult Energy Intake: No significant decrease Percentage of meal intake: Patient mostly eating 100% meals since last visit Oral Nutrition Supplement (ONS): Super Mashed Potatoes with Gravy (1/2 cup plus 1 oz provides: 292 calories, 9 grams protein, 25 grams carbohydrate) daily, dinner Pertinent medications/vitamins/minerals/supplements: Cipro, Novolog, Lantus, Lactobacillus, Lactulose, Multivitamin, Aldactone, Torsemide, Vitamin C, Albumin, Potassium chloride Pertinent Biochemical Data: Latest Reference Range & Units 01/22/25 05:51 01/23/25 05:32 01/24/25 06:07 SODIUM 135 - 146 mmol/L 125 (L) 127 (L) 126 (L) (L): Data is abnormally low Hyponatremia, related to fluid status changes/edema noted Latest Reference Range & Units 01/22/25 05:51 01/23/25 05:32 01/24/25 06:07 Albumin 3.8 - 5.0 g/dL 2.2 (L) 2.1 (L) 2.1 (L) (L): Data is abnormally low Fluid retention, patient w/ hx decompensated hepatic cirrhosis Nutrition-Focused Physical Findings: Appearance: Ill-appearing Respiratory support: Supplemental O2 Delivery: Room Air, None Nasal/Oral: Dentition: receeding gums Digestive: Appetite good Last Bowel Movement: 01/24/25 (01/24/25 0100) Cognition: Awake, alert Skin: Compromise without nutrition-related implications, surgical wound L lateral flank Enteral access: None Nutrition Focused Physical Exam: completed on 01/15/2025 Subcutaneous Fat Loss: Orbital fat pads: Mild Buccal fat: WNL Tricep: Mild Rib: Unable to assess Muscle Loss: Temples: Mild Clavicles: Mild Shoulders: Mild Scapula: Mild Interosseous: Moderate Quadriceps: Unable to assess Calves: Unable to assess Edema Location: Right Lower Extremity (RLE);Left Lower Extremity (LLE) (01/24/25 0840) Edema Assessment: +3 - Description (01/17/252124) Anthropometrics Measurements Height: 177.8 cm (5' 10") (01/14/252013) Admission weight: 105.8 kg Weight: 106.2 kg (234 lb 2.1 oz) (01/24/25643) BMI: 33.47 (01/14/252013) Usual Body Weight: 102.7 kg per patient report, 105 kg s/p paracentesis 01/17/25 [place] weight: 78.7 kg [place] Weight Based on BMI: 24.9 Interpretation of Weight Change Prior to Admission: Change likely secondary to fluid Weight Changes Since Admission: + 1 kg Nutrition Prescription: Energy needs: 25-30 Kcal/kg Kcal/day: 1967 - 2360 Based on [place] weight Protein needs: 1.3-1.5 gm/kg Protein: 102 - 118 Based on [place] weight Fluid needs: 30 ml/kg Fluid: 2361 ml/day Based on [place] weight Malnutrition: Malnutrition Present: Yes (01/15/251526) Adult Malnutrition Classification: Moderate (01/15/251526) Malnutrition Characteristics: Fat loss;Muscle loss;Inadequate energy intake (01/15/251526) NUTRITION DIAGNOSIS: Malnutrition moderate related to chronic illness as evidenced by patient consuming less than 75% ofestimated energy requirements x 1 month, mild fat loss, and mild muscle loss - Improving Altered nutrition-related laboratory values related to decompensated hepatic cirrhosis as evidencedby need for nutrient restricted diet - Ongoing Goals: Patient to consume greater than 75 % of daily meals and 75% of daily supplements within 3-5 days. NUTRITION INTERVENTION/PLAN: Continue current care plan Clinical Nutrition Recommendations: Diet: Continue current nutrition plan NUTRITION MONITORING AND EVALUATION: Nursing documentation flowsheets for percent meal intake Tolerance of supplement per patient/nursing report Lab values warranting change with MNT Weight for trends Plan follow-up: Will follow and adjust nutrition plan of care as medical condition requires. Please contact for change(s) in patient condition requiring earlier intervention. Stacia Dailey Dietitian Ext. [phone] Patient discussed with Graduate Dietitian. Agree with nutrition plan of care. Avni Beckham RDN, LDN Clinical Dietitian Senior Available by [facility] * Ancillary Progress Note - Anita Amanda RN - 01/24/2025 9:17 AM EDT CARE MANAGEMENT - ADULT TRANSITION NOTE [facility] [place] [address] Name: Satish Spencer Location: [facility] B331/A Date: 01/24/2025 Time: 9:17 AM Risk Stratification Readmission Risk Score: 20.58 (01/24/25 0800) AM-PAC Score With Stairs : 18 (01/23/25 1209) Caregiver Information Emergency Contacts Name Relation Home Work Mobile Snow Spencer Other - (no specific identity) [phone] ZOHRA SPENCER Sibling [phone] Other Contacts Name Relation Home Work Mobile Lj Spencer Sibling [phone] Transition of Care Checklist Narrative: Patient was discussed during boost this AM. Per IDT, patient is not medically ready, plan for TIPs procedure today. No needs identified at this time, from home independently. CM will continue to follow. Anticipated Transportation at Discharge: family Patient/Family Expectations: home Transition Planning Additional Considerations: Care Management will continue to monitor and assist with discharge planning needs * Care Plan - Mike Rueda RN - 01/24/2025 4:29 AM EDT Clinical Goal(s): Patient will remain free from fall and injury this shift (01/23/251999) Possible barriers to meeting goal(s)/advancing plan of care: pending TIPS procedure Stability of the patient: Moderately unstable - medium risk of patient condition declining or worsening Summary regarding today's goal(s): Met: Patient remained free from fall and injury this shift Recommendations: Continue plan of care, call obregon within reach, hourly rounding, bed alarms on * Communication - Javon Wilder MD - 01/23/2025 3:47 PM EDT IR Note Contacted by AKLEY Hansen re: TIPS placement. Patient of Dr Magaña known due to tx for HCC. D/W patient about possibility of TIPS placement. Unfortunately no scheduled time available for tomorrow Fri at this time.OK to eat tomorrow. If there is a opening may be tomorrow. Dr Magaña to discuss further with patient tomorrow with formal consult and arrange for timing of procedure. * Care Plan - Kimmy Sands RN - 01/23/2025 1:19 AM EDT Problem: Safety & Risk for Injury Goal: Patient will remain free from injury. Outcome: Progressing Problem: Daily Care & Potential Self-Care Deficit Goal: Patient's daily care needs are met. Outcome: Progressing Problem: Risk for Impaired Physical Mobility Goal: Patient will maintain optimal mobility level. Outcome: Progressing Problem: Alteration in Health Maintenance Goal: Patient will maintain management & treatment regimen. Outcome: Progressing Problem: Actual & Potential for Falls Goal: Patient will remain free of falls. Outcome: Progressing Problem: Activity Intolerance & Impaired Mobility Goal: Patient will maintain optimal mobility & activity level. Outcome: Progressing Clinical Goal(s): Pt will remain free from fall. (01/23/25 0100) Possible barriers to meeting goal(s)/advancing plan of care: Stability of the patient: Moderately stable - low risk of patient condition declining or worsening Summary regarding today's goal(s): Met: Pt remains free from fall. Recommendations: Continue fall precautions and POC. * Ancillary Progress Note - Mai Sharma COTA - 01/22/2025 10:30 AM EDT PROGRESS NOTE - Occupational Therapy [facility] [place] [address] Name: Satish Spencer Location: [facility] B331/A Date: 01/22/2025 Time: 10:30 AM Satish Spencer is a 59 year old male. Patient Status: Inpatient Insurance: Payor: [employer] Plan: [id number] Product Type: *No Product type* Patient Seen: at bedside, nursing cleared patient for therapy Patient Identified By: Name, ID Band and Date Diagnosis: hepatic cirrhosis (01/22/25 1030) Status of treatment: Treatment completed (01/22/25 1030) Orders: OT evaluation and treatment;OT OOB (01/17/25 0935) Weight Bearing Status: Weight bearing as tolerated (01/22/25 1030) Precautions: Alarms;Falls;Safety (01/22/25 1030) Total Treatment Time: 44 (billed 30) (01/22/251029) Subjective: in bed and agreeable. Pt reported he ws going home today or tomorrow. Pain: Patient has complaints of pain. Pain located back. 06/08 end of session Staff Notified Observations Consciousness: Alert (01/22/251029) Orientation: Oriented times 4 (01/22/251029) Psychosocial: Patient can communicate basic needs;Patient can converse in a social setting (01/22/251029) Sitting posture: Forward head;Rounded shoulders (01/22/251029) Standing posture: Forward head;Rounded shoulders (01/22/251029) Safety awareness: The Patient verbalizes insight of current deficits. (01/22/251029) Other Findings Endurance: Fair (01/22/251029) Light touch sensation: LUE;RUE;Intact (01/17/25934) Coordination: LUE;RUE;Intact (01/17/25934) Tone: Normal tone (01/17/25934) Edema: No edema noted (01/17/25934) Current Functional Status: Activities of Daily Living: Self Care Able to provide self care: Yes (01/17/25934) Feeding: Independent (drink water) (01/22/251029) Grooming: Not Tested (declined) (01/22/251029) Toileting: Supervision (Please comment) (simulated) (01/22/251029) Dressing Upper Body: Supervision (Please comment) (gown) (01/22/251029) Lower Body: Not Tested (declined) (01/22/251029) Functional Ambulation Assistive Device: Rollator (01/22/251029) Distance in feet:: (20+15) (01/22/251029) Level of Assistance: Supervision (Please Comment) (01/22/251029) Bed Mobility Supine-Sit: Modified Independent (01/22/251029) Sit-Supine: Modified Independent (01/22/251029) OT Transfers Sit-Stand: Supervision (Please comment) (01/22/251029) Stand-Sit: Supervision (Please comment) (01/22/251029) Toilet: Supervision (Please comment) (01/22/251029) Balance Sit (Static): Good (01/22/251029) Sit (Dynamic): Fair (01/22/251029) Stand (Static): Fair (01/22/251029) Stand (Dynamic): Fair (01/22/251029) Patient Education Education Topic: Role of OT;Plan of care goals;Energy conservation (01/22/251029) Review of Precautions: Safety;Fall (01/22/251029) Review of Exercises: Written Handout Provided;Pt Demonstrated Exercise (01/22/251029) Review of Home Program: Yes (01/22/251029) Teachback Test Complete: Yes (01/22/251029) Method of Education: Verbalized to patient;Demonstrated to patient;Written information provided to patient (01/22/251029) Education Provided to: Patient (01/22/251029) Response to Education: Receptive and agreeable to education (01/22/251029) Barriers to learning: None (01/22/251029) Preferred learning method: Combination (01/22/251029) Alarm Status Patient positioned in: Bed (01/22/251029) With: Call obregon in reach (01/22/251029) Treatment Provided: Self [facility] Management Trainin minutes Therapeutic Procedure: 15 minutes Upper Extremity exercise Demonstrate Exercises: LUE;RUE;Shoulder;Elbow;Flexion;Extension;Abduction;Adduction;Internal/external rotation;Scapular protraction/retraction (01/22/251029) Peformed in: Supine (01/22/251029) Deficits requiring O.T. treatment needs: ADL/self- care;Balance;Endurance;Functional mobility;IADL;Upper extremity strength;Safety;Weakness (01/22/251029) Assessment: Pt supine in bed and alert. Pt completed bed mobility with head of bed elevated at Mod I level. Pt sat edge of bed demonstrating upper body dressing at Mod I. Functional transfers from the bed and toilet in the bathroom performed SPV level. Pt ambulated <> the bathroom and in the room reaching 20 and 15 feet with the rollator at SPV level. Pt rested in bed. BUE HEP provided to Pt. Pt instructed on program and completed 3 of 7 exercises. Pt understood purpose and reason for HEP. Please consider post-acute care services which may include home health, jail, outpatienttherapy or inpatient rehabilitation. The level of care will be determined in collaboration with patient, family/caregiver and care team members. Plan: Anticipated Frequency (on eval): (1-5x/wk) (01/17/25 0935) Equipment Equipment used in Therapy: Rollator;Grab bars (01/22/25 103) AM-PAC Help From Another Person Eating Meals: None (01/22/251029) Help From Another Person Taking Care of Personal Grooming: A little (01/22/251029) Help From Another Person To Put On/Take Off Upper Body Clothing: A little (01/22/251029) Help From Another Person To Put On/Take Off Lower Body Clothing: A lot (01/22/251029) Help From Another Person Toileting: A little (01/22/251029) Help From Another Person Bathing: A little (01/22/251029) OT AM-PAC Score: 18 (01/22/25 103) OT AM-PAC t-Scale Score: 38.66 (01/22/25 103) HLM (Highest Level of Mobility) Goal: Level 6 walk 10 steps or more (01/22/25 0944) * Ancillary Progress Note - Anita Amanda RN - 01/22/2025 9:48 AM EDT CARE MANAGEMENT - ADULT TRANSITION NOTE [facility] [place] [address] Name: Satish Spencer Location: [facility] B331/A Date: 01/22/2025 Time: 9:49 AM Risk Stratification Readmission Risk Score: 21.81 (01/22/25 0800) AM-PAC Score With Stairs : 17 (01/21/25 09) Caregiver Information Emergency Contacts Name Relation Home Work Mobile [place]remington Spencer Other - (no specific identity) [phone] ZOHRA SPENCER [phone] Other Contacts Name Relation Home Work Mobile Lj Spencer Sibling [phone] Transition of Care Checklist Narrative: Patient was discussed during boost this AM. Per IDT, patient is not medically ready. Still to determine if getting TIPs procedure. Unsure of needs at this time, but patient is from home independentlyand would prefer to d/c home if possible. CM will continue to follow. Anticipated Transportation at Discharge: family Patient/Family Expectations: home Transition Planning Additional Considerations: Care Management will continue to monitor and assist with discharge planning needs * Ancillary Progress Note - Yvette Leonard PTA - 01/22/2025 9:44 AM EDT PROGRESS NOTE - Physical Therapy [facility] [place] [address] Name: Satish Spencer Location: [facility] B331/A Date: 01/22/2025 Time: 9:44 AM Satish Spencer is a/an 59 year old male. Patient Status: Inpatient Insurance: Payor: [employer] Plan: Qik Product Type: *No Product type* Patient Seen: at bedside, nursing cleared patient for therapy Patient Identified By: Name, ID Band and Date Diagnosis: hepatic cirrhosis (01/22/25943) Status of treatment: Treatment completed (01/22/25943) Orders: PT evaluation and treatment (01/22/25943) Weight Bearing Status: Weight bearing as tolerated (01/22/25943) Precautions: Alarms;Falls;Safety (01/22/25943) Total Treatment Time--free text: 31 (01/22/25943) Subjective: Patient was agreeable Pain: Patient has complaints of pain. Pain located in lower back. Patient did not formally rate pain P.T. Bed Mobility Supine-Sit: Modified Independent (01/22/25943) Sit-Supine: Modified Independent (01/22/25943) Transfers Sit-Stand: Supervision (01/22/25943) Stand-Sit: Supervision (01/22/25943) Ambulation: Distance ambulated (feet): 20 + 15 Assistive Device: Rollator Assist: Supervision Balance Sit (Static): Good (01/22/25943) Sit (Dynamic): Fair (01/22/25943) Stand (Static): Fair (01/22/25943) Stand (Dynamic): Fair (01/22/25943) Patient and or Family Goal(s): to get well Topic of Education: Safety with mobility Extremity Exercise Supine: Hip;Knee;Ankle (01/22/25943) Hip : Bilateral LE;Flexion;Adduction;Abduction;1 set of 10 (01/22/25943) Knee : Bilateral LE;Heel slide;1 set of 10 (01/22/25943) Ankle: Bilateral LE;Plantar flexion;Dorsiflexion;2 sets of 10 (01/22/25943) Method of Education: Verbal discussion and explanation provided to patient: verbalized understanding and or agreement of this information and demonstrated the exercise and or task Treatment Provided: Therapeutic Activities 16 minutes: bed mobility training transfer training toilet transfer training Gait Training 15 minutes: gait training with 4-wheel walker Alarm Status Patient positioned in: Bed (01/22/25943) With: Bed alarm intact and functioning and call [place] in reach (01/22/25943) Patient Education Review of Precautions: Safety;Fall (01/22/25943) Review of Exercises: Pt Demonstrated Exercise;Verbal Exercises Provided (01/22/25943) Safety Awareness: Patient verbalizes insight of current deficits;Patient demonstrates carryover of insight during functional tasks;Patient can communicate basic needs;Needs cueing supervision (01/22/25943) Preferred learning method: Combination (01/22/25943) Barriers to learning: Medical Status (01/22/25943) Method of Education: Verbalized to patient;Patient demonstrated task (01/22/25943) Assessment: Patient was found supine in bed upon arrival and agreeable to work with physical therapy services. Patient completed bed mobility with modified independence and completed sit to stand transfers from the bed and toilet with a rollator and supervision. Noted patient required cues hand placement and for walker management such as locking brakes and overall safety. Patient ambulated 20 and15 feet with a rollator and supervision. Noted patient to be slightly unsteady with ambulation however is able to self correct. Patient completed exercises supine in bed to increase lower extremity strength (please see flowsheet). Ended session with patient supine in bed with pillows for comfort, bed alarm activated, and call obregon within reach. Please consider home with post- acute care services which may include home health or outpatient therapy. The level of care will be determined in collaboration with the patient, family/caregiver and care team members. Deficits requiring P.T. treatment needs: Safety;Mobility;Weakness;Balance;Range of motion;Endurance;Lower extremity strength (01/22/25 09) Equipment needs: Rollator (01/22/25943) Plan: Continue with current treatment plan established on evaluation. AM PAC Score with Stairs: 18 A portion of this AM-PAC assessment not scored based on functional assessment; rather clinical decision making utilized based on current findings and/or prior level of function. Please refer to future AM-PAC calculations of functional ability as they become available. * Care Plan - Lesvia Castro RN - 01/21/2025 5:34 PM EDT Clinical Goal(s): patient will have no falls today (01/21/25 0700) Possible barriers to meeting goal(s)/advancing plan of care: patient needs assistance with walker. Stability of the patient: Moderately stable - low risk of patient condition declining or worsening Summary regarding today's goal(s): Met: 01/21/25 Recommendations: goal met * Ancillary Progress Note - Mai Sharma COTA - 01/21/2025 11:42 AM EDT PROGRESS NOTE - Occupational Therapy [facility]-[address] [address] Name: Satish Spencer Location: [facility] B331/A Date: 01/21/2025 Time: 11:42 AM Attempted to treat pt. to work toward stated goals. Pt. supine in bed, receiving blood at this time. Per Pt report and after speaking with bedside RN, Pt to keep RUE straight during process. Will continue to follow and treat as able. * Progress Notes - Non-Billable - Juan Herrera DO - 01/20/2025 7:26 PM EDT Brief Cardiology Note: Date of initial consult: 01/18/24 Reason for consult: evaluation pre-TIPS Patient Summary: 59 YO M admitted with decompensated cirrhosis. 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 The qualitative LV ejection fraction is 60-64% (normal). No LV segmental wall motion abnormalities. The right ventricular cavity size is normal (basal dimension < 4.2 cm RV apical 4 chamber view). The right ventricular systolic function is qualitatively normal. Moderate aortic valve stenosis is present. NM SPECT MPI Lexiscan 11/26/24 Interpretation Summary The pharmacologic myocardial perfusion imaging is normal without evidence of scar or inducible ischemia. Gated SPECT imaging reveals normal myocardial thickening and wall motion. The left ventricular ejection fraction was calculated to be > 70% Assessment and recommendations: Pre-operative risk stratification for TIPS vs transplant Moderate Patient has very poor functional status at baseline. It sounds like it has been months or maybe even over a year since he has engaged in any vigorous physical activity that would allow for accurate assessment of cardiac symptoms at >4 METS. However, Lexiscan <3 mo ago was normal. The final step for determining preoperative risk assessment and optimization centers around moderate . Unclearif moderate presents prohibitive risk for transplant surgery and how to best proceed. There is valid concern that hemodynamic shifts would present some degree of a challenge intraoperatively. Willobtain pre-TAVR evaluation to further inform discussion with the Structural Heart Disease team CT TAVR Dentistry consult Will discuss further with Structural Heart Disease team after CT TAVR is complete Case was discussed with attending physician Dr. Lionel Herrera DO Cardiovascular Disease Fellow, PGY-4 * Ancillary Progress Note - Saad Rios RD - 01/20/2025 1:22 PM EDT CLINICAL NUTRITION CONSULT/PROGRESS NOTE [facility] [place] [address] Name: Satish Spencer Location: [facility] B331/A Date: 01/20/2025 Time: 1:23 PM How patient was identified (select 2): date and Name Discussed in interdisciplinary rounds: Nuzhat Spencer is a 59 year old male being seen for follow-up Primary Diagnosis: A 59 year old male patient who presents with decompensated hepatic cirrhosis; paracentesis 01/17 Other pertinent information: During assessment, patient indicated that his appetite has been adequate. Per EHR, he ate 100% of his breakfast. Appetite/oral intake prior was between ~5-70%. No complaints of chewing or swallowing or GI related issues recently. Last bowel movement was 01/20/25. Generalized edema noted. Patient not interested in Mighty shakes or Boost. Recommend super food mashed potatoes to aid in meeting his necessary energy and nutrient requirements. Patient willing to trial. Potential for TIPS/transplant for chronic liver disease. NUTRITION ASSESSMENT: Past medical/surgical history and medications reviewed. Food/Nutrition-Related History Nutrition Support: None Diet: 1500 ml Fluid Restriction 4 Choices (60 gm) Consistent Carbohydrate Previously followed diet: Regular Food Allergies/Intolerances: Patient reported lactose intolerance with RN; noticed he was drinking soy milk during breakfast Adult Energy Intake: Less than 75% of estimated energy requirement for greater than 1 month (moderate/severe, chronic illness). Percentage of meal intake: 100% intake documented 01/20/25; appetite prior was ~5-70% Oral Nutrition Supplement (ONS): None Pertinent medications/vitamins/minerals/supplements: Albumin, Cipro, Novolog, Lantus, Lactobacillus, Lactulose, Multivitamin, Prilosec, Vitamin C, Ceftriaxone, Phos-nak, Potassium chloride, Torsemide Pertinent Biochemical Data: Latest Reference Range & Units 01/18/25 09:15 01/19/25 08:04 01/20/25 06:44 SODIUM 135 - 146 mmol/L 122 (L) 120 (L) 123 (L) (L): Data is abnormally low Hyponatremic Patient was receiving Phos-Nak Nutrition-Focused Physical Findings: Appearance: Jaundice Respiratory support: Supplemental O2 Delivery: Room Air, None Nasal/Oral: Dentition: receeding gums Digestive: Appetite fair Last Bowel Movement: 01/20/25 (01/20/25 0020) Cognition: Awake, alert Skin: Intact Enteral access: None Nutrition Focused Physical Exam: completed on 01/15/2025 Subcutaneous Fat Loss: Orbital fat pads: Mild Buccal fat: WNL Tricep: Mild Rib: Unable to assess Muscle Loss: Temples: Mild Clavicles: Mild Shoulders: Mild Scapula: Mild Interosseous: Moderate Quadriceps: Unable to assess Calves: Unable to assess Edema Location: Generalized (01/19/252329) Edema Assessment: +3 - Description (01/17/252124) Anthropometrics Measurements Height: 177.8 cm (5' 10") (01/14/252013) Admission weight: 105.8 kg Weight: 106.7 kg (235 lb 3.7 oz) (01/20/25 015) BMI: 33.47 (01/14/252013) Usual Body Weight: 102.7 kg per patient report - dry weight, 105 kg weight s/p paracentesis [place] weight: 78.7 kg [place] Weight Based on BMI: 24.9 Interpretation of Weight Change Prior to Admission: Change likely secondary to fluid Weight Changes Since Admission: + 1 kg Nutrition Prescription: Energy needs: 25-30 Kcal/kg Kcal/day: 1967 - 2360 Based on [place] weight Protein needs: 1.3-1.5 gm/kg Protein: 102-118 gm Based on [place] weight Fluid needs: 30 ml/kg Fluid: 2361 ml/day Based on [place] weight Malnutrition: Malnutrition Present: Yes (01/15/251526) Adult Malnutrition Classification: Moderate (01/15/251526) Malnutrition Characteristics: Fat loss;Muscle loss;Inadequate energy intake (01/15/251526) NUTRITION DIAGNOSIS: Malnutrition moderate related to chronic illness as evidenced by patient consuming less than 75% ofestimated energy requirements x 1 month, mild fat loss, and mild muscle loss Altered nutrition-related laboratory values related to decompensated hepatic cirrhosis as evidencedby need for nutrient restricted diet upon diet advancement Goals: Patient to consume greater than 75 % of daily meals and 75% of daily supplements within 3-5 days. NUTRITION INTERVENTION/PLAN: Orders: Oral nutrition supplement added Super Mashed Potatoes with Gravy (1/2 cup plus 1 oz, 265 calories, 8 grams protein, 23 grams carbohydrate) daily, lunch or dinner Clinical Nutrition Recommendations: Diet: Continue current nutrition plan NUTRITION MONITORING AND EVALUATION: Nursing documentation flowsheets for percent meal intake Tolerance of supplement per patient/nursing report Lab values warranting change with MNT Weight for trends Plan follow-up: Will follow and adjust nutrition plan of care as medical condition requires. Please contact for change(s) in patient condition requiring earlier intervention. Saad Rios, Graduate Dietitian Ext. [phone] Cosigned by Yesy Sloan RDN at 01/20/2025 3:32 PM EDT * Ancillary Progress Note - Yvette Leonard PTA - 01/20/2025 11:02 AM EDT PROGRESS NOTE - Physical Therapy [facility] [place]-[address] [address] Name: Satish Spencer Location: [facility] B331/A Date: 01/20/2025 Time: 11:02 AM Satish Spencer is a/an 59 year old male. Patient Status: Inpatient Insurance: Payor: [employer] Plan: MIGUEL Product Type: *No Product type* Patient Seen: at bedside, nursing cleared patient for therapy Patient Identified By: Name, ID Band and Date Diagnosis: hepatic cirrhosis (01/20/251101) Status of treatment: Treatment completed (01/20/251101) Orders: PT evaluation and treatment (01/20/251101) Precautions: Alarms;Falls;Safety (01/20/251101) Total Treatment Time--free text: 25 (01/20/251101) Subjective: Patient as agreeable Pain: Patient has complaints of pain. Pain located in low back. 03/08; primary nurse aware P.T. Bed Mobility Supine-Sit: Supervision (01/20/251101) Sit-Supine: Supervision (01/20/251101) Transfers Sit-Stand: Contact Guard (01/20/251101) Stand-Sit: Contact Guard (01/20/251101) Ambulation: Distance ambulated (feet): 10 Assistive Device: Rolling walker Assist: Supervision Balance Sit (Static): Fair (01/20/251101) Sit (Dynamic): Fair (01/20/251101) Stand (Static): (Fair-) (01/20/251101) Stand (Dynamic): (Fair-) (01/20/251101) Patient and or Family Goal(s): to get well Topic of Education: Safety with mobility Extremity Exercise Sitting: Hip;Ankle;Knee (01/20/251101) Hip : Bilateral LE;Flexion;1 set of 10 (01/20/251101) Knee : Bilateral LE;Flexion;Extension;1 set of 10 (01/20/251101) Ankle: Bilateral LE;Plantar flexion;Dorsiflexion;1 set of 10 (01/20/251101) Method of Education: Verbal discussion and explanation provided to patient: verbalized understanding and or agreement of this information and demonstrated the exercise and or task Treatment Provided: Therapeutic Activities 17 minutes: bed mobility training transfer training Gait Training 8 minutes: gait training with rolling walker Alarm Status Patient positioned in: Chair (01/20/251101) With: Pressure pad alarm intact and functioning and call [place] in reach (01/20/251101) Following session patient seated OOB in chair with chair alarm activated and cord plugged into callbell system. Patient Education Review of Precautions: Safety;Fall (01/20/251101) Review of Exercises: Pt Demonstrated Exercise;Verbal Exercises Provided (01/20/251101) Safety Awareness: Patient verbalizes insight of current deficits;Patient demonstrates carryover of insight during functional tasks;Patient can communicate basic needs;Needs cueing supervision (01/20/251101) Preferred learning method: Combination (01/20/251101) Barriers to learning: Medical Status (01/20/251101) Method of Education: Verbalized to patient;Patient demonstrated task (01/20/251101) Assessment: Patient was found supine in bed upon arrival and agreeable to work with physical therapy services. Patient completed bed mobility with with supervision and completed a sit to stand transfer with a rolling walker and contact guard assistance. Patient ambulated 10 feet with a rolling walker and supervision. Patient declined further ambulation due to pain in low back; patient rated 5/10;primary nurse aware. Noted patient required increased time throughout session due to pain. Patient completed exercises seated in chair to increase lower extremity strength (please see flowsheet). Ended session with patient reclined in chair with pillows for comfort, pressure pad alarm activated, and call obregon within reach. Please consider home with post-acute care services which may include home health or outpatient therapy. The level of care will be determined in collaboration with the patient, family/caregiver and care team members. Deficits requiring P.T. treatment needs: Safety;Mobility;Weakness;Balance;Range of motion;Endurance;Lower extremity strength (01/20/251101) Equipment needs: Rolling walker (01/20/251101) Plan: Continue with current treatment plan established on evaluation. AM PAC Score with Stairs: 17 A portion of this AM-PAC assessment not scored based on functional assessment; rather clinical decision making utilized based on current findings and/or prior level of function. Please refer to future AM-PAC calculations of functional ability as they become available. * Ancillary Progress Note - Anita Amanda RN - 01/20/2025 9:40 AM EDT CARE MANAGEMENT - ADULT TRANSITION NOTE [facility] [place]-[address] [address] Name: Satish Spencer Location: [facility] B331/A Date: 01/20/2025 Time: 9:41 AM Risk Stratification Readmission Risk Score: 23.24 (01/20/25 0801) AM-PAC Score With Stairs : 19 (01/20/25 0020) Caregiver Information Emergency Contacts Name Relation Home Work Mobile Snow Spencer Other - (no specific identity) [phone] ZOHRA SPENCER Sibling [phone] Other Contacts Name Relation Home Work Mobile Lj Spencer Sibling [phone] Transition of Care Checklist Narrative: Patient was discussed during boost this AM. Per IDT, patient is not medically ready. Plan is for multi-disciplinary meeting today to discuss TIPS/transplant. Unsure of needs at this time, but from home independently. CM will continue to follow. Anticipated Transportation at Discharge: family Patient/Family Expectations: home Transition Planning Additional Considerations: Care Management will continue to monitor and assist with discharge planning needs * Care Plan - Jana Carranza RN - 01/20/2025 4:44 AM EDT Problem: Actual & Potential for Falls Goal: Patient will remain free of falls. Outcome: Progressing Clinical Goal(s): pt will remain fall free (01/19/25 2330) Possible barriers to meeting goal(s)/advancing plan of care: weakness Stability of the patient: Moderately stable - low risk of patient condition declining or worsening Summary regarding today's goal(s): Met: pt remained fall free Recommendations: To continue on fall precaution. * Care Plan - Rosario Ricketts RN - 01/19/2025 11:47 PM EDT Clinical Goal(s): Pt will free from falls (01/19/251999) Possible barriers to meeting goal(s)/advancing plan of care: weakness Stability of the patient: Moderately stable - low risk of patient condition declining or worsening Summary regarding today's goal(s): Met: no falls Recommendations: safety rounds * Care Plan - Glenna Santana RN - 01/18/2025 3:02 AM EDT Clinical Goal(s): safety (01/17/25 2300) Possible barriers to meeting goal(s)/advancing plan of care: weakness Stability of the patient: Moderately stable - low risk of patient condition declining or worsening Summary regarding today's goal(s): Met: no falls during the shift; pt rings appropriately for assistance Recommendations: continue plan of care; fall precautions at all times * Care Plan - Sailaja Benson RN - 01/17/2025 2:37 PM EDT Clinical Goal(s): Patient will remain free from falls (01/17/25 1029) Possible barriers to meeting goal(s)/advancing plan of care: weakness, pain, paracentesis today, uses walker Stability of the patient: Moderately unstable - medium risk of patient condition declining or worsening Summary regarding today's goal(s): Met: patient didn't fall Recommendations: continue fall precautions * Diagnostic Clarification - Sammy Martinez MD - 01/17/2025 2:32 PM EDT - moderate malnutrition d/t poor protein calorie intake * Ancillary Progress Note - Anita Amanda RN - 01/17/2025 8:51 AM EDT CARE MANAGEMENT - ADULT TRANSITION NOTE [facility] [place]-[address] [address] Name: Satish Spencer Location: [facility] B331/A Date: 01/17/2025 Time: 8:52 AM Risk Stratification Readmission Risk Score: 21.88 (01/17/25 0800) AM-PAC Score With Stairs : 19 (01/16/25 1209) Caregiver Information Emergency Contacts Name Relation Home Work Mobile Snow Spencer Other - (no specific identity) [phone] ZOHRA SPENCER Sibling [phone] Other Contacts Name Relation Home Work Mobile Lj Spencer Sibling [phone] Transition of Care Checklist Narrative: Patient was discussed during boost this AM. Per IDT, patient is not medically ready. Still being w/u for possible transplant and TIPs procedure. Unsure of needs when medically ready, but from home independently. Patient's sister called and spoke with CM regarding equipment in home, such as hospitalbed. CM discussed possible co pay for this, and discussed other options family could look into. Sister stated she would look into those first and then get back to . Anticipated Transportation at Discharge: family Patient/Family Expectations: home Transition Planning Additional Considerations: Care Management will continue to monitor and assist with discharge planning needs * Care Plan - Bettina Leong RN - 01/16/2025 10:37 PM EDT Clinical Goal(s): Pt free of falls (01/16/256) Possible barriers to meeting goal(s)/advancing plan of care: hypotension Stability of the patient: Moderately unstable - medium risk of patient condition declining or worsening Summary regarding today's goal(s): Met: pt free of falls Recommendations: Continue fall interventions, BP management Problem: Actual & Potential for Falls Goal: Patient will remain free of falls. Outcome: Progressing * Care Plan - Shannan Andersen RN - 01/16/2025 3:05 AM EDT Clinical Goal(s): pt will remain free from falls (01/15/25 1930) Possible barriers to meeting goal(s)/advancing plan of care: weakness Stability of the patient: Moderately stable - low risk of patient condition declining or worsening Summary regarding today's goal(s): Met: No falls during shift Recommendations: Fall precautions- bed rails, bed alarm * Communication - Denise Castro CRNP - 01/15/2025 6:20 PM EDT Chest tube removed. Occlusive dressing applied to site post removal. An occlusive dressing should stay in place for 24 hours. You can change the dressing to another occlusive one if the dressing becomes soiled. After 24 hours, occlusive dressing should be removed and replaced with gauze 4 x 4s and p aper tape or a band aid depending on drainage amount. Keep site covered until a scab forms over thesite. There are no other sutures to be removed. The wound will heal from the inside out. Showering is allowed but don't scrub the site. Do not soak in a tub, pool, or any body of water until all incisions are completely healed. It is likely that this chest tube site will drain fluid until it heals. Please change the dressing as needed. Continue the 4x4 gauze and tegaderm until 1600 01/16. Thoracic surgery signing off. Pleasereach out with questions. * Ancillary Progress Note - Anita Amanda RN - 01/15/2025 9:10 AM EDT CARE MANAGEMENT - ADULT TRANSITION NOTE [facility] [place]-[address] [address] Name: Satish Spencer Location: [facility] B331/A Date: 01/15/2025 Time: 9:10 AM Risk Stratification Readmission Risk Score: 18.56 (01/15/25 0800) Caregiver Information Emergency Contacts None on File Other Contacts Name Relation Home Work Mobile ZOHRA SPENCER [phone] Lj Spencer Sibling [phone] Snow Spencer Other - (no specific identity) [phone] Transition of Care Checklist Narrative: Patient was discussed during boost this AM. Per IDT, patient is not medically ready. Being evaluated for possible tips procedure and with chest tube. Unsure of specific needs when medically ready. CMwill continue to follow. Anticipated Transportation at Discharge: family Patient/Family Expectations: home Transition Planning Additional Considerations: Care Management will continue to monitor and assist with discharge planning needs * Care Plan - Shannan Andersen RN - 01/15/2025 2:32 AM EDT Clinical Goal(s): pt will maintain an 02 sat greater than 90% (01/14/252014) Possible barriers to meeting goal(s)/advancing plan of care: medical diagnosis Stability of the patient: Moderately stable - low risk of patient condition declining or worsening Summary regarding today's goal(s): Met: SPO2 maintained at more than 90% Recommendations: Monitor VS and episodes of SOB or increased work of breathing documented in this encounter Plan of Treatment Upcoming Encounters Date Type Department Care Team (Late st Contact Info) Description 02/04/2025 12:30 PM EDT Office Visit Gastroenterology, [facility] [address] [address] Ren Pineda CRNP [address] [address] 03/10/2025 7:20 AM EDT Office Visit Family Medicine [address] [place] [address] Krystian Palomo MD [address] [place] [address] [place] [id number] 03/20/2025 10:30 AM EDT Office Visit Cardiology, [facility] [address] [address] Chino Carrillo PA-C [address] [place] [address] 04/18/2025 10:30 AM EDT Office Visit Gastroenterology, [facility] [address] [place] [phone] Ren Pineda CRNP [address] [place] [address] 06/02/2025 10:00 AM EDT Office Visit Family Medicine [address] [place] [phone] Krystian Palomo MD [address] [place] [address] [place] [address] 09/11/2025 2:00 PM EST Imaging Radiology [address] [place] [id number] Scheduled Orders Name Type Priority Associated Diagnoses Orde r Schedule IR VENOUS TIPS Medical Imaging Routine One T gala for 1 Occurrences starting 01/23/2025 until 01/23/2025 COMPREHENSIVE METABOLIC PANEL Lab Routine S/P TIPS (transjugular intrahepatic portosystemic shunt) Expected: 02/28/2025, Expires: 01/29/2026 US ABDOMEN DOPPLER COMPLETE Medical Imaging Routine S/P TIPS (transjugular intrahepatic portosystemic shunt) Expected: 02/28/2025, Expires: 02/28/2026 Scheduled Procedures Name Priority Associated Diagnoses Date/Ti me ESOPHAGOGASTRODUODENOSCOPY ( EGD), FLEXIBLE, TRANSORAL, DIAGNOSTIC Recall Portal hypertensive gastropathy (HCC) COLONOSCOPY FLEXIBLE PROXIMAL DIAGNOSTIC Recall Family history of colon cancer Scheduled Referrals Name Type Priority Associated Diagnoses Orde r Schedule INTERVENTIONAL RADIOLOGY REFERRAL OP Referral Within 30 days (routine) S/P TIPS (transjugular intrahepatic portosystemic shunt) Ordered: 01/29/2025 HEPATOLOGY REFERRAL OP Referral Within 10 days (routine) S/P TIPS (transjugular intrahepatic portosystemic shunt) Ordered: 01/29/2025 Health Maintenance Due Date Last Done Comments [...] 03/08/2021, Additional history exists HbA1c 06/05/2025 12/06/2024, 062 10/2023, 01/05/2024, Additional history exists Depression Screening 09/09/2025 [...] this encounter Medical Devices Implanted Type Area Aircraft Maintenance Manager Device Identifier Shelf Expiration Date Model / Serial / Lot Lipiodol Injection - [id number] Implanted:Qty: 1 on 08/02/2023 at [facility] [employer] 04/28/2026 [id number] 1-2 / / [id number] Syr Pf 2ml Embospheres 100-300 - [id number] Implanted:Qty: 1 on 08/02/2023 at [facility] [employer] [id number] 02/26/2026 [id number] / / [id number] Syr Pf 2ml Embospheres 100-300 - [id number] Implanted:Qty: 1 on 04/11/2024 at [facility] [employer] [id number] 12/27/2026 S220GH / / [id number] Lipiodol Injection - [id number] Implanted:Qty: 1 on 04/11/2024 at [facility] [employer] [id number] 1-2 / / Tip Endoprosthesis [id number] - [id number] Implanted:Qty: 1 on 01/27/2025 at [facility] [employer] [id number] 10/11/2027 [id number] / [id number] / [id number] documented as of this encounter Procedures Procedure Name Priority Date/Time Associated Diagnosis Comments GLUCOSE METER, POINT OF CARE [facility] 01/29/2025 11:37 AM EDT GLUCOSE METER, POINT OF CARE [facility] 01/29/2025 7:20 AM EDT COMPREHENSIVE METABOLIC PANEL Routine 01/29/2025 6:37 AM EDT PT INR Routine 01/29/2025 6:37 AM EDT CBC Routine 01/29/2025 6:37 AM EDT GLUCOSE METER, POINT OF CARE [facility] 01/28/2025 10:22 PM EDT GLUCOSE METER, POINT OF CARE [facility] 01/28/2025 4:26 PM EDT GLUCOSE METER, POINT OF CARE [facility] 01/28/2025 11:21 AM EDT GLUCOSE METER, POINT OF CARE [facility] 01/28/2025 7:21 AM EDT COMPREHENSIVE METABOLIC PANEL Routine 01/28/2025 6:46 AM EDT PT INR Routine 01/28/2025 6:46 AM EDT CBC Routine 01/28/2025 6:46 AM EDT GLUCOSE METER, POINT OF CARE [facility] 01/27/2025 8:49 PM EDT GLUCOSE METER, POINT OF CARE [facility] 01/27/2025 4:43 PM EDT GLUCOSE METER, POINT OF CARE [facility] 01/27/2025 2:03 PM EDT IR VENOUS TIPS Routine 01/27/2025 12:19 PM EDT Cirrhosis of liver with ascites, unspecified hepatic cirrhosis type (HCC) 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) TRANSFUSE PLATELETS Routine 01/27/2025 1 1:23 AM EDT BLOOD GAS WITH CHEMISTRY, POINT OF CARE [facility] 01/27/2025 11:13 AM EDT TRANSFUSE PACKED RED BLOOD CELLS Routine 01/27/2025 10:49 AM EDT HC PRE POOLED LR PLATELETS ACRODOSE EA STAT 01/27/2025 10:45 AM EDT PREPARE PLASMA STAT 01/27/2025 9:10 AM EDT HC COMPATIBILITY ELECTRONIC CROSSMATCH STAT 01/27/2025 8:40 AM EDT GLUCOSE METER, POINT OF CARE [facility] 01/27/2025 8:07 AM EDT COMPREHENSIVE METABOLIC PANEL Routine 01/27/2025 6:43 AM EDT TYPE AND SCREEN Routine 01/27/2025 6:43 AM EDT PT INR Routine 01/27/2025 6:43 AM EDT CBC Routine 01/27/2025 6:43 AM EDT GLUCOSE METER, POINT OF CARE [facility] 01/26/2025 8:53 PM EDT GLUCOSE METER, POINT OF CARE [facility] 01/26/2025 5:34 PM EDT BASIC METABOLIC PANEL Routine 01/26/2025 1:54 PM EDT GLUCOSE METER, POINT OF CARE [facility] 01/26/2025 11:37 AM EDT GLUCOSE METER, POINT OF CARE [facility] 01/26/2025 7:58 AM EDT COMPREHENSIVE METABOLIC PANEL Routine 01/26/2025 7:11 AM EDT PT INR Routine 01/26/2025 7:11 AM EDT CBC Routine 01/26/2025 7:11 AM EDT GLUCOSE METER, POINT OF CARE [facility] 01/25/2025 9:01 PM EDT GLUCOSE METER, POINT OF CARE [facility] 01/25/2025 4:29 PM EDT GLUCOSE METER, POINT OF CARE [facility] 01/25/2025 12:12 PM EDT COMPREHENSIVE METABOLIC PANEL Routine 01/25/2025 7:42 AM EDT PT INR Routine 01/25/2025 7:42 AM EDT CBC Routine 01/25/2025 7:42 AM EDT GLUCOSE METER, POINT OF CARE [facility] 01/25/2025 7:29 AM EDT GLUCOSE METER, POINT OF CARE [facility] 01/24/2025 8:55 PM EDT GLUCOSE METER, POINT OF CARE [facility] 01/24/2025 4:50 PM EDT GLUCOSE METER, POINT OF CARE [facility] 01/24/2025 11:44 AM EDT GLUCOSE METER, POINT OF CARE [facility] 01/24/2025 7:29 AM EDT COMPREHENSIVE METABOLIC PANEL Routine 01/24/2025 6:07 AM EDT PT INR Routine 01/24/2025 6:07 AM EDT CBC Routine 01/24/2025 6:07 AM EDT TYPE AND SCREEN Routine 01/24/2025 6:06 AM EDT GLUCOSE METER, POINT OF CARE [facility] 01/23/2025 9:12 PM EDT GLUCOSE METER, POINT OF CARE [facility] 01/23/2025 4:27 PM EDT POTASSIUM Routine 01/23/2025 12:02 PM EDT GLUCOSE METER, POINT OF CARE [facility] 01/23/2025 11:32 AM EDT GLUCOSE METER, POINT OF CARE [facility] 01/23/2025 7:27 AM EDT COMPREHENSIVE METABOLIC PANEL Routine 01/23/2025 5:32 AM EDT PT INR Routine 01/23/2025 5:32 AM EDT CBC Routine 01/23/2025 5:32 AM EDT GLUCOSE METER, POINT OF CARE [facility] 01/22/2025 9:05 PM EDT GLUCOSE METER, POINT OF CARE [facility] 01/22/2025 4:38 PM EDT GLUCOSE METER, POINT OF CARE [facility] 01/22/2025 11:27 AM EDT GLUCOSE METER, POINT OF CARE [facility] 01/22/2025 7:47 AM EDT COMPREHENSIVE METABOLIC PANEL Routine 01/22/2025 5:51 AM EDT PT INR Routine 01/22/2025 5:51 AM EDT CBC Routine 01/22/2025 5:51 AM EDT GLUCOSE METER, POINT OF CARE [facility] 01/21/2025 8:50 PM EDT GLUCOSE METER, POINT OF CARE [facility] 01/21/2025 4:09 PM EDT CBC Routine 01/21/2025 3:32 PM EDT GLUCOSE METER, POINT OF CARE [facility] 01/21/2025 11:47 AM EDT TRANSFUSE PACKED RED BLOOD CELLS Routine 01/21/2025 11:10 AM EDT TYPE AND SCREEN STAT 01/21/2025 8:17 AM EDT HC COMPATIBILITY ELECTRONIC CROSSMATCH Routine 01/21/2025 8:10 AM EDT GLUCOSE METER, POINT OF CARE [facility] 01/21/2025 7:13 AM EDT COMPREHENSIVE METABOLIC PANEL Routine 01/21/2025 6:50 AM EDT PT INR Routine 01/21/2025 6:50 AM EDT PHOSPHORUS Add-on 01/21/2025 6:50 AM EDT CBC Routine 01/21/2025 6:50 AM EDT MAGNESIUM Add-on 01/21/2025 6:50 AM EDT CTA TAVR GATED STUDY Routine 01/20/2025 9:39 PM EDT Portal hypertension (HCC) 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) Other ascites Nonrheumatic aortic (valve) stenosis Presence of prosthetic heart valve GLUCOSE METER, POINT OF CARE [facility] 01/20/2025 9:05 PM EDT GLUCOSE METER, POINT OF CARE [facility] 01/20/2025 4:37 PM EDT GLUCOSE METER, POINT OF CARE [facility] 01/20/2025 12:00 PM EDT GLUCOSE METER, POINT OF CARE [facility] 01/20/2025 7:39 AM EDT COMPREHENSIVE METABOLIC PANEL Routine 01/20/2025 6:44 AM EDT PT INR Routine 01/20/2025 6:44 AM EDT CBC Routine 01/20/2025 6:44 AM EDT GLUCOSE METER, POINT OF CARE [facility] 01/19/2025 9:08 PM EDT GLUCOSE METER, POINT OF CARE [facility] 01/19/2025 4:09 PM EDT GLUCOSE METER, POINT OF CARE [facility] 01/19/2025 11:51 AM EDT COMPREHENSIVE METABOLIC PANEL Routine 01/19/2025 8:04 AM EDT PT INR Routine 01/19/2025 8:04 AM EDT EXTRA LAVENDER TOP Routine 01/19/2025 7: 58 AM EDT EXTRA TUBES Routine 01/19/2025 7:58 AM EDT GLUCOSE METER, POINT OF CARE [facility] 01/19/2025 7:21 AM EDT GLUCOSE METER, POINT OF CARE [facility] 01/18/2025 8:45 PM EDT GLUCOSE METER, POINT OF CARE [facility] 01/18/2025 4:27 PM EDT GLUCOSE METER, POINT OF CARE [facility] 01/18/2025 11:24 AM EDT COMPREHENSIVE METABOLIC PANEL Routine 01/18/2025 9:15 AM EDT PT INR Routine 01/18/2025 9:15 AM EDT PHOSPHORUS Routine 01/18/2025 9:15 AM EDT CBC Routine 01/18/2025 9:15 AM EDT MAGNESIUM Routine 01/18/2025 9:15 AM EDT GLUCOSE METER, POINT OF CARE [facility] 01/18/2025 7:23 AM EDT GLUCOSE METER, POINT OF CARE [facility] 01/17/2025 8:50 PM EDT GLUCOSE METER, POINT OF CARE [facility] 01/17/2025 4:23 PM EDT AR ABDOM PARACENTESIS DX/THER W/IMAGING GUIDANCE Routine 01/17/2025 2:24 PM EDT Other ascites POINT OF CARE US - GUIDED PARACENTESIS Routine 01/17/2025 1:31 PM EDT GLUCOSE METER, POINT OF CARE [facility] 01/17/2025 11:36 AM EDT GLUCOSE METER, POINT OF CARE [facility] 01/17/2025 7:32 AM EDT COMPREHENSIVE METABOLIC PANEL Routine 01/17/2025 6:34 AM EDT PT INR Routine 01/17/2025 6:34 AM EDT PHOSPHORUS Routine 01/17/2025 6:34 AM EDT CBC Routine 01/17/2025 6:34 AM EDT MAGNESIUM Routine 01/17/2025 6:34 AM EDT GLUCOSE METER, POINT OF CARE [facility] 01/16/2025 8:57 PM EDT GLUCOSE METER, POINT OF CARE [facility] 01/16/2025 4:30 PM EDT XR CHEST 1 VIEW Routine 01/16/2025 11:38 AM EDT Pleural effusion, not elsewhere classified Other specified postprocedural states GLUCOSE METER, POINT OF CARE [facility] 01/16/2025 11:31 AM EDT ECHO, COMPLETE (2D), TRANS-THORACIC Routine 01/16/2025 10:27 AM EDT Valvular insufficiency PT INR Routine 01/16/2025 9:09 AM EDT GLUCOSE METER, POINT OF CARE [facility] 01/16/2025 8:15 AM EDT COMPREHENSIVE METABOLIC PANEL Routine 01/16/2025 6:40 AM EDT PHOSPHORUS Routine 01/16/2025 6:40 AM EDT CBC Routine 01/16/2025 6:40 AM EDT MAGNESIUM Routine 01/16/2025 6:40 AM EDT GLUCOSE METER, POINT OF CARE [facility] 01/15/2025 9:11 PM EDT GLUCOSE METER, POINT OF CARE [facility] 01/15/2025 5:[address] CHEST W CONTRAST Routine 01/15/2025 4 :03 PM EDT Encounter for fitting and adjustment of non-vascular catheter Pleural effusion, not elsewhere classified Pneumothorax, unspecified Portal hypertension (HCC) 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) Other specified diseases of liver Other ascites Abnormal findings on diagnostic imaging of other specified body structures XR CHEST 1 VIEW Routine 01/15/2025 2:51 PM EDT Encounter for fitting and adjustment of non-vascular catheter Pleural effusion, not elsewhere classified Other nonspecific abnormal finding of lung field GLUCOSE METER, POINT OF CARE [facility] 01/15/2025 11:38 AM EDT GLUCOSE METER, POINT OF CARE [facility] 01/15/2025 7:15 AM EDT COMPREHENSIVE METABOLIC PANEL Routine 01/15/2025 6:14 AM EDT PT INR Routine 01/15/2025 6:14 AM EDT LD Add-on 01/15/2025 6:14 AM EDT CBC Routine 01/15/2025 6:14 AM EDT URINALYSIS, REFLEX TO MICROSCOPIC Routine 01/15/2025 12:09 AM EDT GLUCOSE METER, POINT OF CARE [facility] 01/14/2025 11:27 PM EDT HEPATIC FUNCTION PANEL STAT 01/14/2025 10:24 PM EDT BASIC METABOLIC PANEL STAT 01/14/2025 10:24 PM EDT TYPE AND SCREEN Routine 01/14/2025 10:24 PM EDT PT INR STAT 01/14/2025 10:24 PM EDT CBC STAT 01/14/2025 10:24 PM EDT MAGNESIUM STAT 01/14/2025 10:24 PM EDT documented in this encounter Results * GLUCOSE METER, POINT OF CARE (01/29/2025 11:37 AM EDT) Glucose - POCT 120 70 - 120 mg/dL 01/30/2025 12:18 AM EDT [email or web address] Blood Whole blood specimen / Unknown 01/29/2025 11:37 AM EDT 01/30/2025 12:18 AM EDT Rachel Hallman MD LAB POI NT OF CARE TEST DOCKED DEVICE UNSOLICITED RESULTS Final Result [facility] [address] [place] [address] * (ABNORMAL) GLUCOSE METER, POINT OF CARE (01/29/2025 7:20 AM EDT) Glucose - POCT 158(H) 70 - 120 mg/dL 01/29/2025 7:28 AM EDT [email or web address] Blood Whole blood specimen / Unknown 01/29/2025 7:20 AM EDT 01/29/2025 7:28 AM EDT us Rachel Hallman MD LAB POI NT OF CARE TEST DOCKED DEVICE UNSOLICITED RESULTS Final Result [facility] [address] [place] [address] * (ABNORMAL) CBC (01/29/2025 6:37 AM EDT) WBC 7.49 4.00 - 10.80 K/uL 01/29/2025 7:06 AM EDT [facility] RBC 2.59 4.50 - 5.25 M/uL 01/29/2025 7:06 AM EDT [facility] HGB 8.2(L) 14.0 - 16.8 g/dL 01/29/2025 7:06 AM EDT [facility] HCT 24.8(L) 40.0 - 48.4 % 01/29/2025 7:06 AM EDT [facility] MCV 95.8 82.0 - 99.5 fL 01/29/2025 7:06 AM EDT [facility] MCH 31.7 27.0 - 34.0 pg 01/29/2025 7:06 AM EDT [facility] MCHC 33.1 32.0 - 36.0 g/dL 01/29/2025 7:06 AM EDT [facility] RDW 20.6 11.5 - 15.5 % 01/29/2025 7:06 AM EDT [facility] PLT 70(L) 140 - 400 K/uL 01/29/2025 7:06 AM EDT [facility] MPV 10.4 6.6 - 11.1 fL 01/29/2025 7:06 AM EDT [facility] nRBCs 0 <=0 /100 WBCs 01/29/2025 7:06 AM EDT [facility] Blood Venous blood specimen / Unknown Venipuncture / Unknown 01/29/2025 6:37 AM EDT 01/29/2025 6:53 AM EDT us Gaetano Khan MD LAB BLOOD ORDERABLES Final Resul t [facility] [address] [place] [address] * (ABNORMAL) PT INR (01/29/2025 6:37 AM EDT) Prothrombin Time 24.9(H) 11.6 - 15.2 seconds 01/29/2025 7:53 AM EDT LABORATORY [facility] INR 2.2(H) 0.8 - 1.2 01/29/2025 7:53 AM EDT LABORATORY [facility] Blood Venous blood specimen / Unknown Venipuncture / Unknown 01/29/2025 6:37 AM EDT 01/29/2025 6:53 AM EDT Narrative LABORATORY [facility] - 01/29/2025 7:53 AM EDT Warfarin Therapy INR: 2.0-3.0 conventional anticoagulation INR: 2.5-3.5 high intensity anticoagulation us Stephanie Illar DO LAB BLOOD ORDERABLES Final Res ult Performing Organization Address City/State/[facility] Co de Phone Number LABORATORY [facility] [address] [place] [address] * (ABNORMAL) COMPREHENSIVE METABOLIC PANEL (01/29/2025 6:37 AM EDT) Pathologist [facility] BUN 14 6 - 20 mg/dL 01/29/2025 7:25 AM EDT LABORATORY [facility] CREATININE 1.2 0.6 - 1.2 mg/dL 01/29/2025 7:25 AM EDT LABORATORY [facility] EGFR 67 >=60 mL/min 01/29/2025 7:25 AM EDT LABORATORY [facility] Comment:eGFR is calculated b ased on the CKD-EPI 2020 equation. SODIUM 131(L) 135 - 146 mmol/L 01/29/2025 7:25 AM EDT [facility] POTASSIUM 3.9 3.5 - 5.1 mmol/L 01/29/2025 7:25 AM EDT [facility] CHLORIDE 99 98 - 107 mmol/L 01/29/2025 7:25 AM EDT [facility] CO2 22 22 - 32 mmol/L 01/29/2025 7:25 AM EDT LABORATORY [facility] ANION GAP 10 7 - 15 mmol/L 01/29/2025 7:25 AM EDT [facility] GLUCOSE 164(H) 70 - 120 mg/dL 01/29/2025 7:25 AM EDT [facility] Albumin 2.2(L) 3.8 - 5.0 g/dL 01/29/2025 7:25 AM EDT [facility] AST 87(H) 10 - 50 U/L 01/29/2025 7:25 AM EDT [facility] Alkaline Phosphatase 284(H) 35 - 130 U/L 01/29/2025 7:25 AM EDT [facility] Bilirubin, Total 2.6(H) <=1.2 mg/dL 01/29/2025 7:25 AM EDT [facility] CALCIUM 7.8(L) 8.4 - 10.2 mg/dL 01/29/2025 7:25 AM EDT [facility] Protein 4.8(L) 6.0 - 8.3 g/dL 01/29/2025 7:25 AM EDT [facility] ALT 44 10 - 50 U/L 01/29/2025 7:25 AM EDT [facility] Blood Venous blood specimen / Unknown Venipuncture / Unknown 01/29/2025 6:37 AM EDT 01/29/2025 6:53 AM EDT us Brent Ng MD LAB BLOOD ORDERABLES Final Resul t LABORATORY [facility] [address] [place] [address] * (ABNORMAL) GLUCOSE METER, POINT OF CARE (01/28/2025 10:22 PM EDT) [facility] Glucose - POCT 214(H) 70 - 120 mg/dL 01/29/2025 6:03 AM EDT [facility] [employer] Blood Whole blood specimen / Unknown 01/28/2025 10:22 PM EDT 01/29/2025 6:03 AM EDT us Rachel Hallman MD LAB POI NT OF CARE TEST DOCKED DEVICE UNSOLICITED RESULTS Final Result [facility] [address] [place] [address] * GLUCOSE METER, POINT OF CARE (01/28/2025 4:26 PM EDT) Glucose - POCT 120 70 - 120 mg/dL 01/28/2025 4:38 PM EDT [facility] Blood Whole blood specimen / Unknown 01/28/2025 4:26 PM EDT 01/28/2025 4:38 PM EDT us Issac Craig MD LAB POINT OF CARE TE ST DOCKED DEVICE UNSOLICITED RESULTS Final Result Performing Organization Address [facility] Co de Phone Number [facility] [address] [place] [address] * (ABNORMAL) GLUCOSE METER, POINT OF CARE (01/28/2025 11:21 AM EDT) Glucose - POCT 187(H) 70 - 120 mg/dL 01/28/2025 11:32 AM EDT [employer] Blood Whole blood specimen / Unknown 01/28/2025 11:21 AM EDT 01/28/2025 11:32 AM EDT us Issac Craig MD LAB POINT OF CARE TE ST DOCKED DEVICE UNSOLICITED RESULTS Final Result Performing Organization Address City/[facility]/ZIP Co de Phone Number [facility] [address] [place] [address] * (ABNORMAL) GLUCOSE METER, POINT OF CARE (01/28/2025 7:21 AM EDT) Glucose - POCT 197(H) 70 - 120 mg/dL 01/28/2025 7:30 AM EDT [facility] Blood Whole blood specimen / Unknown 01/28/2025 7:21 AM EDT 01/28/2025 7:30 AM EDT us Issac Craig MD LAB POINT OF CARE TE ST DOCKED DEVICE UNSOLICITED RESULTS Final Result Performing Organization Address City/[facility]/ZIP Co de Phone Number [facility] [address] [place] [address] * (ABNORMAL) CBC (01/28/2025 6:46 AM EDT) Pathologist [facility] WBC 5.84 4.00 - 10.80 K/uL 01/28/2025 7:11 AM EDT [facility] RBC 2.73 4.50 - 5.25 M/uL 01/28/2025 7:11 AM EDT [facility] HGB 8.8(L) 14.0 - 16.8 g/dL 01/28/2025 7:11 AM EDT [facility] HCT 26.3(L) 40.0 - 48.4 % 01/28/2025 7:11 AM EDT [facility] MCV 96.3 82.0 - 99.5 fL 01/28/2025 7:11 AM EDT [facility] MCH 32.2 27.0 - 34.0 pg 01/28/2025 7:11 AM EDT [facility] MCHC 33.5 32.0 - 36.0 g/dL 01/28/2025 7:11 AM EDT [facility] RDW 20.7 11.5 - 15.5 % 01/28/2025 7:11 AM EDT [facility] PLT 58(L) 140 - 400 K/uL 01/28/2025 7:11 AM EDT [facility] MPV 10.8 6.6 - 11.1 fL 01/28/2025 7:11 AM EDT [facility] nRBCs 0 <=0 /100 WBCs 01/28/2025 7:11 AM EDT [facility] Blood Venous blood specimen / Unknown Venipuncture / Unknown 01/28/2025 6:46 AM EDT 01/28/2025 6:57 AM EDT us Gaetano Khan MD LAB BLOOD ORDERABLES Final Resul t Performing Organization Address City/[facility]/ZIP Co de Phone Number LAB[facility]ATORY [facility] [address] [place] [address] * (ABNORMAL) PT INR (01/28/2025 6:46 AM EDT) Prothrombin Time 23.8(H) 11.6 - 15.2 seconds 01/28/2025 7:12 AM EDT LABORATORY [facility] INR 2.1(H) 0.8 - 1.2 01/28/2025 7:12 AM EDT LABORATORY [facility] Blood Venous blood specimen / Unknown Venipuncture / Unknown 01/28/2025 6:46 AM EDT 01/28/2025 6:57 AM EDT Narrative LABORATORY [facility] - 01/28/2025 7:12 AM EDT Warfarin Therapy INR: 2.0-3.0 conventional anticoagulation INR: 2.5-3.5 high intensity antico[facility] BLOOD ORDERABLES Final Res ult LABORATORY [facility] [address] [place] [address] * (ABNORMAL) COMPREHENSIVE METABOLIC PANEL (01/28/2025 6:46 AM EDT) BUN 11 6 - 20 mg/dL 01/28/2025 7:27 AM EDT LABORATORY [facility] CREATININE 1.3(H) 0.6 - 1.2 mg/dL 01/28/2025 7:27 AM EDT LABORATORY [facility] EGFR 63 >=60 mL/min 01/28/2025 7:27 AM EDT LABORATORY [facility] Comment:eGFR is calculated b ased on the CKD-EPI 2020 equation. SODIUM 126(L) 135 - 146 mmol/L 01/28/2025 7:27 AM EDT LABORATORY [facility] POTASSIUM 4.0 3.5 - 5.1 mmol/L 01/28/2025 7:27 AM EDT LABORATORY [facility] CHLORIDE 95(L) 98 - 107 mmol/L 01/28/2025 7:27 AM EDT LABORATORY [facility] CO2 21(L) 22 - 32 mmol/L 01/28/2025 7:27 AM EDT LABORATORY [facility] ANION GAP 10 7 - 15 mmol/L 01/28/2025 7:27 AM EDT LABORATORY [facility] GLUCOSE 206(H) 70 - 120 mg/dL 01/28/2025 7:27 AM EDT [facility] Albumin 2.3(L) 3.8 - 5.0 g/dL 01/28/2025 7:27 AM EDT [facility] AST 88(H) 10 - 50 U/L 01/28/2025 7:27 AM EDT [facility] Alkaline Phosphatase 281(H) 35 - 130 U/L 01/28/2025 7:27 AM EDT [facility] Bilirubin, Total 3.1(H) <=1.2 mg/dL 01/28/2025 7:27 AM EDT LAB[facility] CALCIUM 8.0(L) 8.4 - 10.2 mg/dL 01/28/2025 7:27 AM EDT [facility] Protein 5.1(L) 6.0 - 8.3 g/dL 01/28/2025 7:27 AM EDT [facility] ALT 45 10 - 50 U/L 01/28/2025 7:27 AM EDT LAB[facility] Blood Venous blood specimen / Unknown Venipuncture / Unknown 01/28/2025 6:46 AM EDT 01/28/2025 6:57 AM EDT us Brent Ng MD LAB BLOOD ORDERABLES Final Resul t LABORATORY [facility] [address] [place] [address] * (ABNORMAL) GLUCOSE METER, POINT OF CARE (01/27/2025 8:49 PM EDT) [facility] Glucose - POCT 274(H) 70 - 120 mg/dL 01/27/2025 8:55 PM EDT [facility] Blood Whole blood specimen / Unknown 01/27/2025 8:49 PM EDT 01/27/2025 8:55 PM EDT us Issac Craig MD LAB POINT OF CARE TE ST DOCKED DEVICE UNSOLICITED RESULTS Final Result [facility] [address] [place] [address] * (ABNORMAL) GLUCOSE METER, POINT OF CARE (01/27/2025 4:43 PM EDT) Glucose - POCT 161(H) 70 - 120 mg/dL 01/27/2025 9:07 PM EDT [employer] Blood Whole blood specimen / Unknown 01/27/2025 4:43 PM EDT 01/27/2025 9:07 PM EDT us Issac Craig MD LAB POINT OF CARE TE ST DOCKED DEVICE UNSOLICITED RESULTS Final Result Performing Organization Address City/[facility]/ZIP Co de Phone Number [facility] [address] [place] [address] * (ABNORMAL) GLUCOSE METER, POINT OF CARE (01/27/2025 2:03 PM EDT) Glucose - POCT 157(H) 70 - 120 mg/dL 01/27/2025 8:57 PM EDT [employer] Blood Whole blood specimen / Unknown 01/27/2025 2:03 PM EDT 01/27/2025 8:57 PM EDT us Issac Craig MD LAB POINT OF CARE TE ST DOCKED DEVICE UNSOLICITED RESULTS Final Result Performing Organization Address City/[facility]/ZIP Co de Phone Number [facility] [address] [place] [address] * IR VENOUS TIPS (01/27/2025 12:19 PM EDT) Anatomical Region Laterality Modality Any X-Ray Angiograph y 01/27/2025 2:46 PM EDT Impressions 01/28/2025 10:35 AM EDT IMPRESSION: Transjugular placement of an intrahepatic portosystemic shunt and paracentesis. PLAN: Return to medical floor for clinical monitoring. Serial liver function and CBCs while patient remains hospitalized. Aggressive diuresis overnight. 1 month follow up with abdominal ultrasound and labs. I have personally reviewed this examination and agree with the resident/fellow physician's interpretation. Narrative 01/28/2025 10:35 AM EDT PROCEDURE: Transjugular intrahepatic portosystemic shunt (TIPS) placement. Paracentesis INDICATION: 59 year old male history of decompensated cirrhosis with refractory ascites despite optimal medical management requiring TIPS placement. ATTENDING (OPERATING PHYSICIAN): Dr Gerry Padgett SCRUBBED RESIDENT (OPERATING PHYSICIAN): Dr Librado Francois SUPPORTING PROVIDER (LABORER GOLF COURSE): Jenifer GA CONSENT: After a detailed discussion of the procedure, risks, benefits and alternative treatment options, informed consent was obtained. TIME OUT: A time out procedure was performed. The patient's identification was verified. Informed consent with agreement of procedure, site and position was obtained. All necessary equipment was available prior to procedure. CONTRAST: IV Optiray 320. COMPLICATIONS: None. ANESTHESIA: Local lidocaine. General Anesthesia. SEDATION TIME: N/A MEDICATIONS: See MAR PROCEDURE DESCRIPTION: The patient was placed in the supine position on the fluoroscopy table and the neck was prepped and draped in the usual sterile fashion. Ultrasound guided paracentesis was performed in order to remove ascites fluid from the peritoneal cavity. 2.4 liters of ascites fluid was removed. Digital ultrasound images were acquired and digitally archived. The right internal jugular vein was accessed under ultrasound guidance with a micropuncture needle. Ultrasound images demonstrated tip of the micropuncture needle in the right internal jugular vein. Digital ultrasound images were acquired and digitally archived. Using fluoroscopic guidance, a 10 Fr vascular sheath was placed from the Rosch-Uchida TIPS set. Right atrial pressures were obtained. A 5 Fr glide catheter- a Thakur wire combination was then advanced into the inferior vena cava, and the catheter guidewire combination was then used to selectively cannulate the right hepatic vein. A Robbin balloon was then advanced and a wedged hepatic carbon dioxide portogram was then performed in both the frontal projection. Fluoroscopic images were digitally archived. The anatomy of the portal vein was studied in order to access the right portal vein. The cannula of the Rosch-Uchida TIPS set was advanced into the hepatic vein and directed anteriorly to the right portal vein target. Access was gained into the right portal vein which was confirmed by a small hand injected contrast run. A 0.035 [address] runner hydrophilic wire was then advanced through the Rosch-Uchida catheter and into the splenic vein. The Rosch-Uchida catheter was then removed over the wire and exchanged for a 5 Fr Kumpe catheter which was advanced across the parenchymal tract into the vein. A direct portal pressure was obtained. The 0.035 [address] runner hydrophilic wire was then exchanged over the wire for an Amplatz wire. The 5 Fr glide catheter was then removed over the wire and exchanged for a 4 mm mustang angioplasty balloon. The balloon was placed across the parenchymal tract in the liver and angioplasty of the tract performed. The balloon catheter was then removed over the wire and exchanged for a sizing catheter which was advanced into the portal vein. A hand injected run was then performed through the sizing catheter as well as the sheath which was lying at the hepatic vein-cava confluence. This was performed in order to clearly delineate the length of the parenchymal tract for sizing of the TIPS stent. Fluoroscopic images were digitally archived. The sheath was then advanced across the parenchymal tract and then a 6 x 2 cm(long) constrained release VIATORR stent was advanced into the right portal vein and deployed across the parenchymal tract into the hepatic vein. Post deployment angioplasty with the 8mm mustang angioplasty balloon was then performed. A pigtail catheter was then once again advanced into the right portal vein just beyond the deployed stent and pressure measurements were obtained. The catheter was then advanced into the splenic vein and a digital subtraction angiogram performed. The catheter and sheath were then removed. Standard compression was applied and adequate hemostasis was achieved and the site was dressed. Dr. Gerry Padgett personally performed the procedure. FINDINGS: Paracentesis: Anechoic fluid is seen in the peritoneal cavity which was drained prior to performing TIPS. Right neck ultrasound for access: The right internal jugular vein is anechoic and compressible. Angiography and single shot images: The right hepatic vein is normal in caliber and patent. The portal vein and its branches are patent. Prior to TIPS creation, the direct portal vein pressure was 26 mm Hg. A transjugular intrahepatic portosystemic shunt was successfully created as described. Following angioplasty of the endoprosthesis with an 8 mm balloon: Direct portal vein pressure: 24 mm Hg (mean). RA pressure: 18 mm Hg (mean). Final portosystemic gradient was 6 mm Hg. Final venography demonstrated a patent TIPS with brisk flow and markedly decreased variceal opacification. Procedure Note Gerry Padgett MD - 01/28/2025 PROCEDURE: Transjugular intrahepatic portosystemic shunt (TIPS) placement. Paracentesis INDICATION: 59 year old male history of decompensated cirrhosis withrefractory ascites despite optimal medical management requiring TIPSplacement. ATTENDING (OPERATING PHYSICIAN): Dr Gerry Padgett SCRUBBED RESIDENT (OPERATING PHYSICIAN): Dr Librado Francois SUPPORTING PROVIDER (LABORER GOLF COURSE): Jenifer GA CONSENT: After a detailed discussion of the procedure, risks, benefits andalternative treatment options, informed consent was obtained. TIME OUT: A time out procedure was performed. The patient's identificationwas verified. Informed consent with agreement of procedure, site andposition was obtained. All necessary equipment was available prior toprocedure. CONTRAST: IV Optiray 320. COMPLICATIONS: None. ANESTHESIA: Local lidocaine. General Anesthesia. SEDATION TIME: N/A MEDICATIONS: See MAR PROCEDURE DESCRIPTION: The patient was placed in the supine position onthe fluoroscopy table and the neck was prepped and draped in the usualsterile fashion. Ultrasound guided paracentesis was performed in order toremove ascites fluid from the peritoneal cavity. 2.4 liters of ascitesfluid was removed. Digital ultrasound images were acquired and digitallyarchived. The right internal jugular vein was accessed under ultrasound guidancewith a micropuncture needle. Ultrasound images demonstrated tip of themicropuncture needle in the right internal jugular vein. Digitalultrasound images were acquired and digitally archived. Using fluoroscopicguidance, a 10 Fr vascular sheath was placed from the [facility] TIPSset. Right atrial pressures were obtained. A 5 Fr glide catheter- a Bensonwire combination was then advanced into the inferior vena cava, and thecatheter guidewire combination was then used to selectively cannulate theright hepatic vein. A Robbin balloon was then advanced and a wedgedhepatic carbon dioxide portogram was then performed in both the frontalprojection. Fluoroscopic images were digitally archived. The anatomy ofthe portal vein was studied in order to access the right portal vein. Thecannula of the [facility] TIPS set was advanced into the hepatic veinand directed anteriorly to the right portal vein target. Access was gained into the right portal vein which was confirmed by a small handinjected contrast run. A 0.[address] runner hydrophilic wire was thenadvanced through the Rosch-Uchida catheter and into the splenic vein. TheRosch-Uchida catheter was then removed over the wire and exchanged for a 5Fr Kumpe catheter which was advanced across the parenchymal tract into thevein. A direct portal pressure was obtained. The 0.[address] runner hydrophilic wire was then exchanged over the wirefor an Amplatz wire. The 5 Fr glide catheter was then removed over thewire and exchanged for a 4 mm mustang angioplasty balloon. The balloon wasplaced across the parenchymal tract in the liver and angioplasty of thetract performed. The balloon catheter was then removed over the wire andexchanged for a sizing catheter which was advanced into the portal vein. Ahand injected run was then performed through the sizing catheter as wellas the sheath which was lying at the hepatic vein-cava confluence. Thiswas performed in order to clearly delineate the length of the parenchymaltract for sizing of the TIPS stent. Fluoroscopic images were digitallyarchived. The sheath was then advanced across the parenchymal tract andthen a 6 x 2 cm(long) constrained release VIATORR stent was advanced intothe right portal vein and deployed across the parenchymal tract into thehepatic vein. Post deployment angioplasty with the 8mm mustang angioplasty balloon was then performed. A pigtail catheter wasthen once again advanced into the right portal vein just beyond thedeployed stent and pressure measurements were obtained. The catheter wasthen advanced into the splenic vein and a digital subtraction angiogramperformed. The catheter and sheath were then removed. Standardcompression was applied and adequate hemostasis was achieved and the sitewas dressed. Dr. Gerry Padgett personally performed the procedure. FINDINGS: Paracentesis: Anechoic fluid is seen in the peritoneal cavity which wasdrained prior to performing TIPS. Right neck ultrasound for access: The right internal jugular vein isanechoic and compressible. Angiography and single shot images: The right hepatic vein is normal incaliber and patent. The portal vein and its branches are patent. Prior to TIPS creation, the direct portal vein pressure was 26 mm Hg. Atransjugular intrahepatic portosystemic shunt was successfully created asdescribed. Following angioplasty of the endoprosthesis with an 8 mm balloon: Direct portal vein pressure: 24 mm Hg (mean). RA pressure: 18 mm Hg (mean). Final portosystemic gradient was 6 mm Hg. Final venography demonstrated a patent TIPS with brisk flow and markedlydecreased variceal opacification. IMPRESSION IMPRESSION: Transjugular placement of an intrahepatic portosystemic shunt andparacentesis. PLAN: Return to medical floor for clinical monitoring. Serial liver function and CBCs while patient remains hospitalized. Aggressive diuresis overnight. 1 month follow up with abdominal ultrasound and labs. I have personally reviewed this examination and agree with the resident/fellow physician's interpretation. us Ren BALDERRAMA RAD SPECIAL PROCEDURES Fin al Result * TRANSFUSE PLATELETS (01/27/2025 11:23 AM EDT) us Tiera Aleman MD BLD BANK TRANFUSE ORDERABLES Fin al Result * (ABNORMAL) BLOOD GAS WITH CHEMISTRY, POINT OF CARE (01/27/2025 11:13 AM EDT) Draw Site Arterial Draw 01/27/2025 12:34 PM EDT [facility] pH i-STAT 7.378 7.350 - 7.450 01/27/2025 12:34 PM EDT [facility] pCO2 i-STAT 35.5 35.0 - 45.0 mm Hg 01/27/2025 12:34 PM EDT [email or web address] pO2 i-STAT 184(H) 75 - 100 mm Hg 01/27/2025 12:34 PM EDT [facility] Base Excess i-STAT -4(L) -2 - 2 mmol/L 01/27/2025 12:34 PM EDT [facility] Bicarbonate, Whole Blood 20.9(L) 23.0 - 31.0 mmol/L 01/27/2025 12:34 PM EDT [facility] O2 Saturation i-STAT 100.0(H) 94.0 - 98.0 % 01/27/2025 12:34 PM EDT [facility] Glucose - POCT 142(H) 70 - 120 mg/dL 01/27/2025 12:34 PM EDT [facility] POTASSIUM - POCT 3.5 3.5 - 5.1 mmol/L 01/27/2025 12:34 PM EDT [facility] SODIUM - POCT 129(L) 135 - 146 mmol/L 01/27/2025 12:34 PM EDT [facility] Calcium, ionized 1.13 1.13 - 1.32 mmol/L 01/27/2025 12:34 PM EDT [facility] Hemoglobin i-STAT 8.5(L) 14.0 - 16.8 g/dL 01/27/2025 12:34 PM EDT [facility] Hematocrit i-STAT 25(L) 40 - 48 % 01/27/2025 12:34 PM EDT [facility] FiO2 61 % 01/27/2025 12:34 PM EDT [facility] Arterial Draw 01/27/2025 11: 13 AM EDT 01/27/2025 12:34 PM EDT us Issac Craig MD LAB POINT OF CARE TE ST DOCKED DEVICE UNSOLICITED RESULTS Final Result [facility] [address] [place] [address] * TRANSFUSE PACKED RED BLOOD CELLS (01/27/2025 10:49 AM EDT) us Tiera Aleman MD BLD BANK TRANFUSE ORDERABLES Fin al Result * PREPARE PLATELETS (01/27/2025 10:45 AM EDT) Unit Product Code [id number] 01/28/2025 12:10 PM EDT LAB[facility]AT[facility] BLOOD BANK Unit Number [id number] 01/28/2025 12:10 PM EDT LABORATORY C BLOOD BANK Unit ABO O 01/28/2025 12:10 PM EDT [facility] BLOOD B[facility] Unit Rh POS 01/28/2025 12:10 PM EDT [facility] BLOOD B[facility] Unit Status PT 01/28/2025 12:10 PM EDT LAB[facility]ATORY C BLOOD BANK Unit Blood Type OPOS 01/28/2025 12:10 PM EDT [facility] Unit Expiration [id number] 01/28/2025 12:10 PM EDT LABORATORY C BLOOD BANK Unit Barcode 5100 01/28/2025 12:10 PM EDT [facility] BLOOD BANK 01/27/2025 10:4 5 AM EDT Tiera Aleman MD BLD BANK PRODUCT ORDERABLES Edit ed Result - Final [facility] BLOOD BANK [address] [place] [address] * PREPARE PLASMA (01/27/2025 9:10 AM EDT) Unit Product Code [id number] 01/27/2025 12:45 PM EDT [facility] Unit Number [id number] 01/27/2025 12:45 PM EDT [facility] BLO[facility] Unit ABO A 01/27/2025 12:45 PM EDT [facility] Unit Rh POS 01/27/2025 12:45 PM EDT [facility] Unit Status RE 01/27/2025 12:45 PM EDT [facility] Unit Blood Type APOS 01/27/2025 12:45 PM EDT [facility] Unit Expiration [id number] 01/27/2025 12:45 PM EDT [facility] Unit Barcode 6200 01/27/2025 12:45 PM EDT [facility] Unit Product Code [id number] 01/27/2025 12:45 PM EDT [facility] Unit Number [id number] 01/27/2025 12:45 PM EDT [facility] Unit ABO A 01/27/2025 12:45 PM EDT [facility] Unit Rh POS 01/27/2025 12:45 PM EDT [facility] Unit Status RE 01/27/2025 12:45 PM EDT [facility] Unit Blood Type APOS 01/27/2025 12:45 PM EDT [facility] Unit Expiration [id number] 01/27/2025 12:45 PM EDT [facility] B[facility] Unit Barcode 6200 01/27/2025 12:45 PM EDT [facility] BLOOD BANK 01/27/2025 9:10 AM EDT us Gabbi Tuttle MD BLD BANK PRODUCT ORDERABLES Zain tone Result - Final [facility] [address] [facility] [place] [address] * PREPARE PACKED RED BLOOD CELLS (01/27/2025 8:40 AM EDT) Unit Product Code [id number] 01/27/2025 12:45 PM EDT [facility] Unit Number [id number] 01/27/2025 12:45 PM EDT [facility] Unit ABO A 01/27/2025 12:45 PM EDT [facility] Unit Rh POS 01/27/2025 12:45 PM EDT [facility] Unit Crossmatch Compatible 01/27/2025 9:00 AM EDT [facility] Unit Status RE 01/27/2025 12:45 PM EDT [facility] Unit Blood Type APOS 01/27/2025 12:45 PM EDT [facility] Unit Expiration [id number] 01/27/2025 12:45 PM EDT [facility] B[facility] Unit Barcode 6200 01/27/2025 12:45 PM EDT [facility] Unit Product Code [id number] 01/28/2025 12:10 PM EDT [facility] Unit Number [id number] 01/28/2025 12:10 PM EDT [facility] Unit ABO A 01/28/2025 12:10 PM EDT [facility] Unit Rh POS 01/28/2025 12:10 PM EDT [facility] Unit Crossmatch Compatible 01/27/2025 9:00 AM EDT [facility] Unit Status PT 01/28/2025 12:10 PM EDT [facility] Unit Blood Type APOS 01/28/2025 12:10 PM EDT [facility] Unit Expiration [id number] 01/28/2025 12:10 PM EDT [facility] BLOOD [facility] Unit Barcode 6200 01/28/2025 12:10 PM EDT [facility] BLOOD [facility]ANK 01/27/2025 8:40 AM EDT us Gabbi Tuttle MD BLD BANK PRODUCT ORDERABLES Zain tone Result - Final LABORATORY [facility] BLOOD BANK [address] [place] [address] * GLUCOSE METER, POINT OF CARE (01/27/2025 8:07 AM EDT) [facility] Glucose - POCT 106 70 - 120 mg/dL 01/27/2025 8:20 AM EDT [facility] Blood Whole blood specimen / Unknown 01/27/2025 8:07 AM EDT 01/27/2025 8:20 AM EDT us Issac Craig MD LAB POINT OF CARE TE ST DOCKED DEVICE UNSOLICITED RESULTS Final Result Performing Organization Address [facility] Co de Phone Number [facility] [address] [place] [address] * TYPE AND SCREEN (01/27/2025 6:43 AM EDT) [facility] ABO A 01/27/2025 7:54 AM EDT LABORATORY [facility] BLOOD BANK Rh Positive 01/27/2025 7:54 AM EDT LAB[facility]ATORY [facility] BLOOD BANK Red Blood Cell Antibody Screen Negative 01/27/2025 7:54 AM EDT LAB[facility]ATORY [facility] BLOOD BANK Specimen Expiration Date 01/30/2025 23:59 01/27/2025 7:54 AM EDT LAB[facility]ATORY [facility] BLOOD BANK Blood Venous blood specimen / Unknown Venipuncture / Unknown 01/27/2025 6:43 AM EDT 01/27/2025 6:55 AM EDT us Stephanie Brenner DO LAB BLOOD BANK TEST ORDERABLES Final Result Performing Organization Address City/[facility]/ZIP Co de Phone Number LABORATORY [facility] BLOOD BANK [address] [place] [address] * (ABNORMAL) CBC (01/27/2025 6:43 AM EDT) WBC 3.73(L) 4.00 - 10.80 K/uL 01/27/2025 7:06 AM EDT [facility] RBC 2.46 4.50 - 5.25 M/uL 01/27/2025 7:06 AM EDT [facility] HGB 8.1(L) 14.0 - 16.8 g/dL 01/27/2025 7:06 AM EDT [facility] HCT 24.3(L) 40.0 - 48.4 % 01/27/2025 7:06 AM EDT [facility] MCV 98.8 82.0 - 99.5 fL 01/27/2025 7:06 AM EDT [facility] MCH 32.9 27.0 - 34.0 pg 01/27/2025 7:06 AM EDT LABORATORY [facility] MCHC 33.3 32.0 - 36.0 g/dL 01/27/2025 7:06 AM EDT LAB[facility]ATORY [facility] RDW 19.1 11.5 - 15.5 % 01/27/2025 7:06 AM EDT LAB[facility]ATORY [facility] PLT 54(L) 140 - 400 K/uL 01/27/2025 7:06 AM EDT LABORATORY [facility] MPV 10.9 6.6 - 11.1 fL 01/27/2025 7:06 AM EDT LAB[facility]ATORY [facility] nRBCs 0 <=0 /100 WBCs 01/27/2025 7:06 AM EDT LAB[facility]ORY [facility] Blood Venous blood specimen / Unknown Venipuncture / Unknown 01/27/2025 6:43 AM EDT 01/27/2025 6:55 AM EDT us Gaetano Khan MD LAB BLOOD ORDERABLES Final Resul t LABORATORY [facility] [address] [place] [address] * (ABNORMAL) PT INR (01/27/2025 6:43 AM EDT) Prothrombin Time 22.3(H) 11.6 - 15.2 seconds 01/27/2025 7:19 AM EDT [facility] INR 1.9(H) 0.8 - 1.2 01/27/2025 7:19 AM EDT LAB[facility]ATORY [facility] Blood Venous blood specimen / Unknown Venipuncture / Unknown 01/27/2025 6:43 AM EDT 01/27/2025 6:55 AM EDT Narrative LABORATORY [facility] - 01/27/2025 7:19 AM EDT Warfarin Therapy INR: 2.0-3.0 conventional anticoagulation INR: 2.5-3.5 high intensity anticoagulation us Stephanie Illar DO LAB BLOOD ORDERABLES Final Res ult LABORATORY [facility] [address] [place] [address] * (ABNORMAL) COMPREHENSIVE METABOLIC PANEL (01/27/2025 6:43 AM EDT) BUN 12 6 - 20 mg/dL 01/27/2025 7:24 AM EDT LABORATORY [facility] CREATININE 1.2 0.6 - 1.2 mg/dL 01/27/2025 7:24 AM EDT LAB[facility]ATORY [facility] EGFR 67 >=60 mL/min 01/27/2025 7:24 AM EDT LAB[facility]ATORY [facility] Comment:eGFR is calculated b ased on the CKD-EPI 2020 equation. SODIUM 126(L) 135 - 146 mmol/L 01/27/2025 7:24 AM EDT [facility] POTASSIUM 3.9 3.5 - 5.1 mmol/L 01/27/2025 7:24 AM EDT LABORATORY C CHLORIDE 98 98 - 107 mmol/L 01/27/2025 7:24 AM EDT [facility] CO2 20(L) 22 - 32 mmol/L 01/27/2025 7:24 AM EDT LABORATORY C ANION GAP 8 7 - 15 mmol/L 01/27/2025 7:24 AM EDT LABORATORY C GLUCOSE 114 70 - 120 mg/dL 01/27/2025 7:24 AM EDT LABORATORY C Albumin 2.2(L) 3.8 - 5.0 g/dL 01/27/2025 7:24 AM EDT LABORATORY [facility] AST 65(H) 10 - 50 U/L 01/27/2025 7:24 AM EDT [facility] Comment:Results may be false ly elevated due to hemolysis. Alkaline Phosphatase 230(H) 35 - 130 U/L 01/27/2025 7:24 AM EDT [facility] Bilirubin, Total 1.8(H) <=1.2 mg/dL 01/27/2025 7:24 AM EDT [facility] CALCIUM 7.7(L) 8.4 - 10.2 mg/dL 01/27/2025 7:24 AM EDT [facility] Protein 5.0(L) 6.0 - 8.3 g/dL 01/27/2025 7:24 AM EDT [facility] ALT 37 10 - 50 U/L 01/27/2025 7:24 AM EDT [facility] Blood Venous blood specimen / Unknown Venipuncture / Unknown 01/27/2025 6:43 AM EDT 01/27/2025 6:55 AM EDT Brent Ng MD LAB BLOOD ORDERABLES Final Resul t [facility] [address] [place] [address] * (ABNORMAL) GLUCOSE METER, POINT OF CARE (01/26/2025 8:53 PM EDT) [facility] Glucose - POCT 162(H) 70 - 120 mg/dL 01/26/2025 9:07 PM EDT [facility] Blood Whole blood specimen / Unknown 01/26/2025 8:53 PM EDT 01/26/2025 9:07 PM EDT Issac Craig MD LAB POINT OF CARE TE ST DOCKED DEVICE UNSOLICITED RESULTS Final Result [facility] [address] [place] [address] * (ABNORMAL) GLUCOSE METER, POINT OF CARE (01/26/2025 5:34 PM EDT) [facility] Glucose - POCT 122(H) 70 - 120 mg/dL 01/26/2025 5:39 PM EDT [facility] Blood Whole blood specimen / Unknown 01/26/2025 5:34 PM EDT 01/26/2025 5:39 PM EDT Issac Craig MD LAB POINT OF CARE TE ST DOCKED DEVICE UNSOLICITED RESULTS Final Result [facility] [address] [place] [address] * (ABNORMAL) BASIC METABOLIC PANEL (01/26/2025 1:54 PM EDT) BUN 12 6 - 20 mg/dL 01/26/2025 2:30 PM EDT [facility] CREATININE 1.2 0.6 - 1.2 mg/dL 01/26/2025 2:30 PM EDT [facility] EGFR 69 >=60 mL/min 01/26/2025 2:30 PM EDT [facility] Comment:eGFR is calculated b ased on the CKD-EPI 2020 equation. SODIUM 127(L) 135 - 146 mmol/L 01/26/2025 2:30 PM EDT [facility] POTASSIUM 3.5 3.5 - 5.1 mmol/L 01/26/2025 2:30 PM EDT [facility] CHLORIDE 97(L) 98 - 107 mmol/L 01/26/2025 2:30 PM EDT [facility] CO2 21(L) 22 - 32 mmol/L 01/26/2025 2:30 PM EDT [facility] ANION GAP 9 7 - 15 mmol/L 01/26/2025 2:30 PM EDT [facility] GLUCOSE 175(H) 70 - 120 mg/dL 01/26/2025 2:30 PM EDT [facility] CALCIUM 7.6(L) 8.4 - 10.2 mg/dL 01/26/2025 2:30 PM EDT [facility] Blood Venous blood specimen / Unknown Venipuncture / Unknown 01/26/2025 1:54 PM EDT 01/26/2025 1:59 PM EDT us Issac Craig MD LAB BLOOD ORDERABLES Final Resul t Performing Organization Address City/[facility]/ZIP Co de Phone Number [facility]ORY [facility] [address] [place] [address] * (ABNORMAL) GLUCOSE METER, POINT OF CARE (01/26/2025 11:37 AM EDT) Pathologist [facility] Glucose - POCT 197(H) 70 - 120 mg/dL 01/26/2025 11:51 AM EDT [facility] [employer] Blood Whole blood specimen / Unknown 01/26/2025 11:37 AM EDT 01/26/2025 11:51 AM EDT us Issac Craig MD LAB POINT OF CARE TE ST DOCKED DEVICE UNSOLICITED RESULTS Final Result Performing Organization Address [facility] Co de Phone Number [facility] [address] [place] [address] * (ABNORMAL) GLUCOSE METER, POINT OF CARE (01/26/2025 7:58 AM EDT) [facility] Glucose - POCT 162(H) 70 - 120 mg/dL 01/26/2025 8:11 AM EDT [email or web address] Blood Whole blood specimen / Unknown 01/26/2025 7:58 AM EDT 01/26/2025 8:11 AM EDT us Issac Craig MD LAB POINT OF CARE TE ST DOCKED DEVICE UNSOLICITED RESULTS Final Result Performing Organization Address City/[facility]/ZIP Co de Phone Number [facility] [address] [place] [address] * (ABNORMAL) CBC (01/26/2025 7:11 AM EDT) Pathologist [facility] WBC 4.31 4.00 - 10.80 K/uL 01/26/2025 7:46 AM EDT [facility] RBC 2.34 4.50 - 5.25 M/uL 01/26/2025 7:46 AM EDT [facility] HGB 7.8(L) 14.0 - 16.8 g/dL 01/26/2025 7:46 AM EDT [facility] HCT 23.3(L) 40.0 - 48.4 % 01/26/2025 7:46 AM EDT [facility] MCV 99.6 82.0 - 99.5 fL 01/26/2025 7:46 AM EDT [facility] MCH 33.3 27.0 - 34.0 pg 01/26/2025 7:46 AM EDT [facility] MCHC 33.5 32.0 - 36.0 g/dL 01/26/2025 7:46 AM EDT [facility] RDW 19.2 11.5 - 15.5 % 01/26/2025 7:46 AM EDT [facility] PLT 53(L) 140 - 400 K/uL 01/26/2025 7:46 AM EDT [facility] MPV 10.8 6.6 - 11.1 fL 01/26/2025 7:46 AM EDT [facility] nRBCs 0 <=0 /100 WBCs 01/26/2025 7:46 AM EDT LABORATORY C Blood Venous blood specimen / Unknown Venipuncture / Unknown 01/26/2025 7:11 AM EDT 01/26/2025 7:18 AM EDT Gaetano Khan MD LAB BLOOD ORDERABLES Final Resul t LABORATORY [facility] [address] [place] [address] * (ABNORMAL) PT INR (01/26/2025 7:11 AM EDT) [facility] Prothrombin Time 22.1(H) 11.6 - 15.2 seconds 01/26/2025 8:00 AM EDT LABORATORY [facility] INR 1.9(H) 0.8 - 1.2 01/26/2025 8:00 AM EDT LABORATORY [facility] Blood Venous blood specimen / Unknown Venipuncture / Unknown 01/26/2025 7:11 AM EDT 01/26/2025 7:18 AM EDT Narrative LABORATORY [facility] - 01/26/2025 8:00 AM EDT Warfarin Therapy INR: 2.0-3.0 conventional anticoagulation INR: 2.5-3.5 high intensity anticoagulation us Stephanie Piotrar DO LAB BLOOD ORDERABLES Final Res ult LABORATORY [facility] [address] [place] [address] * (ABNORMAL) COMPREHENSIVE METABOLIC PANEL (01/26/2025 7:11 AM EDT) BUN 13 6 - 20 mg/dL 01/26/2025 7:58 AM EDT LABORATORY [facility] CREATININE 1.2 0.6 - 1.2 mg/dL 01/26/2025 7:58 AM EDT LABORATORY [facility] EGFR 70 >=60 mL/min 01/26/2025 7:58 AM EDT LABORATORY [facility] Comment:eGFR is calculated b ased on the CKD-EPI 2020 equation. SODIUM 126(L) 135 - 146 mmol/L 01/26/2025 7:58 AM EDT LABORATORY [facility] POTASSIUM 3.2(L) 3.5 - 5.1 mmol/L 01/26/2025 7:58 AM EDT LABORATORY [facility] CHLORIDE 96(L) 98 - 107 mmol/L 01/26/2025 7:58 AM EDT LABORATORY [facility] CO2 20(L) 22 - 32 mmol/L 01/26/2025 7:58 AM EDT LABORATORY [facility] ANION GAP 10 7 - 15 mmol/L 01/26/2025 7:58 AM EDT LABORATORY C GLUCOSE 171(H) 70 - 120 mg/dL 01/26/2025 7:58 AM EDT LABORATORY [facility] Albumin 2.2(L) 3.8 - 5.0 g/dL 01/26/2025 7:58 AM EDT LABORATORY [facility] AST 61(H) 10 - 50 U/L 01/26/2025 7:58 AM EDT LABORATORY [facility] Alkaline Phosphatase 230(H) 35 - 130 U/L 01/26/2025 7:58 AM EDT LABORATORY [facility] Bilirubin, Total 1.8(H) <=1.2 mg/dL 01/26/2025 7:58 AM EDT LABORATORY [facility] CALCIUM 8.0(L) 8.4 - 10.2 mg/dL 01/26/2025 7:58 AM EDT LABORATORY [facility] Protein 5.0(L) 6.0 - 8.3 g/dL 01/26/2025 7:58 AM EDT LABORATORY [facility] ALT 36 10 - 50 U/L 01/26/2025 7:58 AM EDT LABORATORY GM Blood Venous blood specimen / Unknown Venipuncture / Unknown 01/26/2025 7:11 AM EDT 01/26/2025 7:18 AM EDT us Brent Ng MD LAB BLOOD ORDERABLES Final Resul t LABORATORY [facility] [address] [place] [address] * (ABNORMAL) GLUCOSE METER, POINT OF CARE (01/25/2025 9:01 PM EDT) Glucose - POCT 180(H) 70 - 120 mg/dL 01/25/2025 9:12 PM EDT [facility] Blood Whole blood specimen / Unknown 01/25/2025 9:01 PM EDT 01/25/2025 9:12 PM EDT us Issac Craig MD LAB POINT OF CARE TE ST DOCKED DEVICE UNSOLICITED RESULTS Final Result Performing Organization Address [facility]/ZIP Co de Phone Number [facility] [address] [place] [address] * (ABNORMAL) GLUCOSE METER, POINT OF CARE (01/25/2025 4:29 PM EDT) Glucose - POCT 164(H) 70 - 120 mg/dL 01/25/2025 4:48 PM EDT [facility] Blood Whole blood specimen / Unknown 01/25/2025 4:29 PM EDT 01/25/2025 4:48 PM EDT us Issac Craig MD LAB POINT OF CARE TE ST DOCKED DEVICE UNSOLICITED RESULTS Final Result [facility] [address] [place] [address] * (ABNORMAL) GLUCOSE METER, POINT OF CARE (01/25/2025 12:12 PM EDT) [facility] Glucose - POCT 129(H) 70 - 120 mg/dL 01/25/2025 4:48 PM EDT [facility] Blood Whole blood specimen / Unknown 01/25/2025 12:12 PM EDT 01/25/2025 4:48 PM EDT us Issac Craig MD LAB POINT OF CARE TE ST DOCKED DEVICE UNSOLICITED RESULTS Final Result [facility] [address] [place] [address] * (ABNORMAL) CBC (01/25/2025 7:42 AM EDT) [facility] WBC 4.15 4.00 - 10.80 K/uL 01/25/2025 8:24 AM EDT LABORATORY [facility] RBC 2.38 4.50 - 5.25 M/uL 01/25/2025 8:24 AM EDT LABORATORY [facility] HGB 8.0(L) 14.0 - 16.8 g/dL 01/25/2025 8:24 AM EDT LABORATORY [facility] HCT 23.5(L) 40.0 - 48.4 % 01/25/2025 8:24 AM EDT LABORATORY [facility] MCV 98.7 82.0 - 99.5 fL 01/25/2025 8:24 AM EDT LABORATORY [facility] MCH 33.6 27.0 - 34.0 pg 01/25/2025 8:24 AM EDT LABORATORY [facility] MCHC 34.0 32.0 - 36.0 g/dL 01/25/2025 8:24 AM EDT LABORATORY [facility] RDW 19.4 11.5 - 15.5 % 01/25/2025 8:24 AM EDT LABORATORY [facility] PLT 60(L) 140 - 400 K/uL 01/25/2025 8:24 AM EDT LABORATORY [facility] MPV 10.6 6.6 - 11.1 fL 01/25/2025 8:24 AM EDT LABORATORY [facility] nRBCs 0 <=0 /100 WBCs 01/25/2025 8:24 AM EDT LABORATORY [facility] Blood Venous blood specimen / Unknown Venipuncture / Unknown 01/25/2025 7:42 AM EDT 01/25/2025 8:05 AM EDT Gaetano Khan MD LAB BLOOD ORDERABLES Final Resul t Performing Organization Address [facility] de Phone Number LABORATORY [facility] [address] [place] [address] * (ABNORMAL) PT INR (01/25/2025 7:42 AM EDT) Prothrombin Time 22.0(H) 11.6 - 15.2 seconds 01/25/2025 9:18 AM EDT LABORATORY [facility] INR 1.9(H) 0.8 - 1.2 01/25/2025 9:18 AM EDT LABORATORY [facility] Blood Venous blood specimen / Unknown Venipuncture / Unknown 01/25/2025 7:42 AM EDT 01/25/2025 8:05 AM EDT Narrative LABORATORY [facility] - 01/25/2025 9:18 AM EDT Warfarin Therapy INR: 2.0-3.0 conventional anticoagulation INR: 2.5-3.5 high intensity anticoagulation us Stephanie Brenner DO LAB BLOOD ORDERABLES Final Res ult Performing Organization Address [facility] de Phone Number LABORATORY [facility] [address] [place] [address] * (ABNORMAL) COMPREHENSIVE METABOLIC PANEL (01/25/2025 7:42 AM EDT) BUN 9 6 - 20 mg/dL 01/25/2025 8:36 AM EDT LABORATORY [facility] CREATININE 1.1 0.6 - 1.2 mg/dL 01/25/2025 8:36 AM EDT LABORATORY [facility] EGFR 74 >=60 mL/min 01/25/2025 8:36 AM EDT LABORATORY [facility] Comment:eGFR is calculated b ased on the CKD-EPI 2020 equation. SODIUM 123(L) 135 - 146 mmol/L 01/25/2025 8:36 AM EDT LABORATORY [facility] POTASSIUM 3.6 3.5 - 5.1 mmol/L 01/25/2025 8:36 AM EDT LABORATORY [facility] CHLORIDE 95(L) 98 - 107 mmol/L 01/25/2025 8:36 AM EDT LABORATORY [facility] CO2 21(L) 22 - 32 mmol/L 01/25/2025 8:36 AM EDT LABORATORY [facility] ANION GAP 7 7 - 15 mmol/L 01/25/2025 8:36 AM EDT LABORATORY [facility] GLUCOSE 125(H) 70 - 120 mg/dL 01/25/2025 8:36 AM EDT LABORATORY [facility] Albumin 2.1(L) 3.8 - 5.0 g/dL 01/25/2025 8:36 AM EDT LABORATORY [facility] AST 67(H) 10 - 50 U/L 01/25/2025 8:36 AM EDT LABORATORY [facility] Comment:Results may be false ly elevated due to hemolysis. Alkaline Phosphatase 229(H) 35 - 130 U/L 01/25/2025 8:36 AM EDT LABORATORY [facility] Bilirubin, Total 2.0(H) <=1.2 mg/dL 01/25/2025 8:36 AM EDT LABORATORY [facility] CALCIUM 7.7(L) 8.4 - 10.2 mg/dL 01/25/2025 8:36 AM EDT LABORATORY [facility] Protein 5.0(L) 6.0 - 8.3 g/dL 01/25/2025 8:36 AM EDT LABORATORY [facility] ALT 36 10 - 50 U/L 01/25/2025 8:36 AM EDT LABORATORY [facility] Blood Venous blood specimen / Unknown Venipuncture / Unknown 01/25/2025 7:42 AM EDT 01/25/2025 8:05 AM EDT us Brent Ng MD LAB BLOOD ORDERABLES Final Resul t LABORATORY [facility] [address] [place] [address] * (ABNORMAL) GLUCOSE METER, POINT OF CARE (01/25/2025 7:29 AM EDT) Glucose - POCT 127(H) 70 - 120 mg/dL 01/25/2025 4:48 PM EDT [facility] Blood Whole blood specimen / Unknown 01/25/2025 7:29 AM EDT 01/25/2025 4:48 PM EDT us Issac Craig MD LAB POINT OF CARE TE ST DOCKED DEVICE UNSOLICITED RESULTS Final Result [facility] [address] [place] [address] * (ABNORMAL) GLUCOSE METER, POINT OF CARE (01/24/2025 8:55 PM EDT) Glucose - POCT 176(H) 70 - 120 mg/dL 01/24/2025 9:03 PM EDT [facility] Blood Whole blood specimen / Unknown 01/24/2025 8:55 PM EDT 01/24/2025 9:03 PM EDT us Issac Craig MD LAB POINT OF CARE TE ST DOCKED DEVICE UNSOLICITED RESULTS Final Result Performing Organization Address City/[facility]/ZIP Co de Phone Number [facility] [address] [place] [address] * (ABNORMAL) GLUCOSE METER, POINT OF CARE (01/24/2025 4:50 PM EDT) Glucose - POCT 165(H) 70 - 120 mg/dL 01/24/2025 5:02 PM EDT [facility] Blood Whole blood specimen / Unknown 01/24/2025 4:50 PM EDT 01/24/2025 5:02 PM EDT us Issac Craig MD LAB POINT OF CARE TE ST DOCKED DEVICE UNSOLICITED RESULTS Final Result [facility] [address] [place] [address] * (ABNORMAL) GLUCOSE METER, POINT OF CARE (01/24/2025 11:44 AM EDT) [facility] Glucose - POCT 179(H) 70 - 120 mg/dL 01/24/2025 12:18 PM EDT [facility] [employer] Blood Whole blood specimen / Unknown 01/24/2025 11:44 AM EDT 01/24/2025 12:18 PM EDT us Issac Craig MD LAB POINT OF CARE TE ST DOCKED DEVICE UNSOLICITED RESULTS Final Result [facility] [address] [place] [address] * GLUCOSE METER, POINT OF CARE (01/24/2025 7:29 AM EDT) [facility] Glucose - POCT 114 70 - 120 mg/dL 01/24/2025 2:49 PM EDT [email or web address] Blood Whole blood specimen / Unknown 01/24/2025 7:29 AM EDT 01/24/2025 2:49 PM EDT Issac Craig MD LAB POINT OF CARE TE ST DOCKED DEVICE UNSOLICITED RESULTS Final Result [facility] [address] [place] [address] * (ABNORMAL) CBC (01/24/2025 6:07 AM EDT) [facility] WBC 4.44 4.00 - 10.80 K/uL 01/24/2025 6:53 AM EDT LABORATORY [facility] RBC 2.51 4.50 - 5.25 M/uL 01/24/2025 6:53 AM EDT LABORATORY [facility] HGB 8.2(L) 14.0 - 16.8 g/dL 01/24/2025 6:53 AM EDT LABORATORY [facility] HCT 24.8(L) 40.0 - 48.4 % 01/24/2025 6:53 AM EDT LABORATORY [facility] MCV 98.8 82.0 - 99.5 fL 01/24/2025 6:53 AM EDT LABORATORY [facility] MCH 32.7 27.0 - 34.0 pg 01/24/2025 6:53 AM EDT LABORATORY [facility] MCHC 33.1 32.0 - 36.0 g/dL 01/24/2025 6:53 AM EDT LABORATORY [facility] RDW 19.3 11.5 - 15.5 % 01/24/2025 6:53 AM EDT LABORATORY [facility] PLT 57(L) 140 - 400 K/uL 01/24/2025 6:53 AM EDT LABORATORY [facility] MPV 10.4 6.6 - 11.1 fL 01/24/2025 6:53 AM EDT LABORATORY [facility] nRBCs 0 <=0 /100 WBCs 01/24/2025 6:53 AM EDT LABORATORY [facility] Blood Venous blood specimen / Unknown Venipuncture / Unknown 01/24/2025 6:07 AM EDT 01/24/2025 6:40 AM EDT Gaetano Khan MD LAB BLOOD ORDERABLES Final Resul t Performing Organization Address City/[facility] Co de Phone Number LABORATORY [facility] [address] [place] [address] * (ABNORMAL) PT INR (01/24/2025 6:07 AM EDT) [facility] Prothrombin Time 21.9(H) 11.6 - 15.2 seconds 01/24/2025 7:08 AM EDT LABORATORY [facility] INR 1.9(H) 0.8 - 1.2 01/24/2025 7:08 AM EDT LABORATORY [facility] Blood Venous blood specimen / Unknown Venipuncture / Unknown 01/24/2025 6:07 AM EDT 01/24/2025 6:40 AM EDT Narrative LABORATORY [facility] - 01/24/2025 7:08 AM EDT Warfarin Therapy INR: 2.0-3.0 conventional anticoagulation INR: 2.5-3.5 high intensity anticoagulation Stephanie Brenner DO LAB BLOOD ORDERABLES Final Res ult LABORATORY [facility] [address] [place] [address] * (ABNORMAL) COMPREHENSIVE METABOLIC PANEL (01/24/2025 6:07 AM EDT) BUN 13 6 - 20 mg/dL 01/24/2025 7:13 AM EDT LABORATORY [facility] CREATININE 1.2 0.6 - 1.2 mg/dL 01/24/2025 7:13 AM EDT LABORATORY [facility] EGFR 69 >=60 mL/min 01/24/2025 7:13 AM EDT LABORATORY [facility] Comment:eGFR is calculated b ased on the CKD-EPI 2020 equation. SODIUM 126(L) 135 - 146 mmol/L 01/24/2025 7:13 AM EDT LABORATORY [facility] POTASSIUM 3.9 3.5 - 5.1 mmol/L 01/24/2025 7:13 AM EDT LABORATORY [facility] CHLORIDE 96(L) 98 - 107 mmol/L 01/24/2025 7:13 AM EDT LABORATORY [facility] CO2 21(L) 22 - 32 mmol/L 01/24/2025 7:13 AM EDT LABORATORY [facility] ANION GAP 9 7 - 15 mmol/L 01/24/2025 7:13 AM EDT LAB[facility]ATORY [facility] GLUCOSE 117 70 - 120 mg/dL 01/24/2025 7:13 AM EDT LABORATORY [facility] Albumin 2.1(L) 3.8 - 5.0 g/dL 01/24/2025 7:13 AM EDT LABORATORY [facility] AST 64(H) 10 - 50 U/L 01/24/2025 7:13 AM EDT LABORATORY [facility] Alkaline Phosphatase 226(H) 35 - 130 U/L 01/24/2025 7:13 AM EDT LABORATORY [facility] Bilirubin, Total 2.1(H) <=1.2 mg/dL 01/24/2025 7:13 AM EDT LABORATORY [facility] CALCIUM 7.8(L) 8.4 - 10.2 mg/dL 01/24/2025 7:13 AM EDT LABORATORY [facility] Protein 4.9(L) 6.0 - 8.3 g/dL 01/24/2025 7:13 AM EDT LABORATORY [facility] ALT 37 10 - 50 U/L 01/24/2025 7:13 AM EDT LABORATORY [facility] Blood Venous blood specimen / Unknown Venipuncture / Unknown 01/24/2025 6:07 AM EDT 01/24/2025 6:40 AM EDT us Brent Ng MD LAB BLOOD ORDERABLES Final Resul t Performing Organization Address City/[facility] Co de Phone Number LABORATORY [facility] [address] [place] [address] * TYPE AND SCREEN (01/24/2025 6:06 AM EDT) ABO A 01/24/2025 7:17 AM EDT LABORATORY [facility] BLOOD BANK Rh Positive 01/24/2025 7:17 AM EDT LABORATORY [facility] BLOOD BANK Red Blood Cell Antibody Screen Negative 01/24/2025 7:17 AM EDT LABORATORY [facility] BLOOD BANK Specimen Expiration Date 01/27/2025 23:59 01/24/2025 7:17 AM EDT LABORATORY [facility] BLOOD BANK Blood Venous blood specimen / Unknown Venipuncture / Unknown 01/24/2025 6:06 AM EDT 01/24/2025 6:40 AM EDT us Stephanie Brenner DO LAB BLOOD BANK TEST ORDERABLES Final Result Performing Organization Address [facility] de Phone Number LABORATORY [facility] BLOOD BANK [address] [place] [address] * (ABNORMAL) GLUCOSE METER, POINT OF CARE (01/23/2025 9:12 PM EDT) Glucose - POCT 159(H) 70 - 120 mg/dL 01/23/2025 9:51 PM EDT [facility] [employer] Blood Whole blood specimen / Unknown 01/23/2025 9:12 PM EDT 01/23/2025 9:51 PM EDT Issac Craig MD LAB POINT OF CARE TE ST DOCKED DEVICE UNSOLICITED RESULTS Final Result [facility] [address] [place] [address] * (ABNORMAL) GLUCOSE METER, POINT OF CARE (01/23/2025 4:27 PM EDT) Pathologist [facility] Glucose - POCT 150(H) 70 - 120 mg/dL 01/23/2025 4:37 PM EDT [facility] Blood Whole blood specimen / Unknown 01/23/2025 4:27 PM EDT 01/23/2025 4:37 PM EDT Issac Craig MD LAB POINT OF CARE TE ST DOCKED DEVICE UNSOLICITED RESULTS Final Result Performing Organization Address [facility]/ZIP Co de Phone Number [facility] [address] [place] [address] * POTASSIUM (01/23/2025 12:02 PM EDT) [facility] POTASSIUM 3.5 3.5 - 5.1 mmol/L 01/23/2025 12:32 PM EDT LABORATORY [facility] Blood Venous blood specimen / Unknown Venipuncture / Unknown 01/23/2025 12:02 PM EDT 01/23/2025 12:12 PM EDT us Stephanie Brenner DO LAB BLOOD ORDERABLES Final Res ult Performing Organization Address [facility]/ZIP Co de Phone Number LABORATORY [facility] [address] [place] [address] * (ABNORMAL) GLUCOSE METER, POINT OF CARE (01/23/2025 11:32 AM EDT) Pathologist [facility] Glucose - POCT 207(H) 70 - 120 mg/dL 01/23/2025 12:25 PM EDT [facility] [employer] Blood Whole blood specimen / Unknown 01/23/2025 11:32 AM EDT 01/23/2025 12:25 PM EDT us Issac Craig MD LAB POINT OF CARE TE ST DOCKED DEVICE UNSOLICITED RESULTS Final Result Performing Organization Address [facility]/State/ZIP Co de Phone Number [facility] [address] [place] [address] * (ABNORMAL) GLUCOSE METER, POINT OF CARE (01/23/2025 7:27 AM EDT) [facility] Glucose - POCT 139(H) 70 - 120 mg/dL 01/23/2025 7:40 AM EDT [facility] Blood Whole blood specimen / Unknown 01/23/2025 7:27 AM EDT 01/23/2025 7:40 AM EDT Issac Craig MD LAB POINT OF CARE TE ST DOCKED DEVICE UNSOLICITED RESULTS Final Result Performing Organization Address [facility]/ZIP Co de Phone Number [facility] [address] [place] [address] * (ABNORMAL) CBC (01/23/2025 5:32 AM EDT) [facility] WBC 4.44 4.00 - 10.80 K/uL 01/23/2025 6:18 AM EDT LABORATORY [facility] RBC 2.37 4.50 - 5.25 M/uL 01/23/2025 6:18 AM EDT LABORATORY [facility] HGB 7.7(L) 14.0 - 16.8 g/dL 01/23/2025 6:18 AM EDT LABORATORY [facility] HCT 23.4(L) 40.0 - 48.4 % 01/23/2025 6:18 AM EDT LAB[facility]ATORY [facility] MCV 98.7 82.0 - 99.5 fL 01/23/2025 6:18 AM EDT LAB[facility]ATORY [facility] MCH 32.5 27.0 - 34.0 pg 01/23/2025 6:18 AM EDT LAB[facility]ORY [facility] MCHC 32.9 32.0 - 36.0 g/dL 01/23/2025 6:18 AM EDT LABORATORY [facility] RDW 19.6 11.5 - 15.5 % 01/23/2025 6:18 AM EDT LABORATORY [facility] PLT 56(L) 140 - 400 K/uL 01/23/2025 6:18 AM EDT LAB[facility]ATORY [facility] MPV 10.1 6.6 - 11.1 fL 01/23/2025 6:18 AM EDT LABORATORY [facility] nRBCs 0 <=0 /100 WBCs 01/23/2025 6:18 AM EDT LABORATORY [facility] Blood Venous blood specimen / Unknown Venipuncture / Unknown 01/23/2025 5:32 AM EDT 01/23/2025 6:00 AM EDT Gaetano Khan MD LAB BLOOD ORDERABLES Final Resul t Performing Organization Address City/[facility] de Phone Number LABORATORY [facility] [address] [place] [address] * (ABNORMAL) PT INR (01/23/2025 5:32 AM EDT) Prothrombin Time 21.7(H) 11.6 - 15.2 seconds 01/23/2025 6:27 AM EDT LABORATORY [facility] INR 1.9(H) 0.8 - 1.2 01/23/2025 6:27 AM EDT LABORATORY [facility] Blood Venous blood specimen / Unknown Venipuncture / Unknown 01/23/2025 5:32 AM EDT 01/23/2025 6:00 AM EDT Narrative LABORATORY [facility] - 01/23/2025 6:27 AM EDT Warfarin Therapy INR: 2.0-3.0 conventional anticoagulation INR: 2.5-3.5 high intensity anticoagulation Stephanie Brenner DO LAB BLOOD ORDERABLES Final Res ult Performing Organization Address City/[facility] de Phone Number LABORATORY [facility] [address] [place] [address] * (ABNORMAL) COMPREHENSIVE METABOLIC PANEL (01/23/2025 5:32 AM EDT) BUN 11 6 - 20 mg/dL 01/23/2025 6:31 AM EDT LABORATORY [facility] CREATININE 1.1 0.6 - 1.2 mg/dL 01/23/2025 6:31 AM EDT LABORATORY [facility] EGFR 76 >=60 mL/min 01/23/2025 6:31 AM EDT LABORATORY [facility] Comment:eGFR is calculated b ased on the CKD-EPI 2020 equation. SODIUM 127(L) 135 - 146 mmol/L 01/23/2025 6:31 AM EDT LABORATORY [facility] POTASSIUM 4.5 3.5 - 5.1 mmol/L 01/23/2025 6:31 AM EDT LABORATORY [facility] Comment:Results may be false ly elevated due to hemolysis. CHLORIDE 97(L) 98 - 107 mmol/L 01/23/2025 6:31 AM EDT LAB[facility]ATORY [facility] CO2 22 22 - 32 mmol/L 01/23/2025 6:31 AM EDT LAB[facility]ATORY [facility] ANION GAP 8 7 - 15 mmol/L 01/23/2025 6:31 AM EDT LAB[facility]ORY [facility] GLUCOSE 98 70 - 120 mg/dL 01/23/2025 6:31 AM EDT LAB[facility]ORY [facility] Albumin 2.1(L) 3.8 - 5.0 g/dL 01/23/2025 6:31 AM EDT LAB[facility]ORY [facility] AST 89(H) 10 - 50 U/L 01/23/2025 6:31 AM EDT LAB[facility]ATORY [facility] Comment:Results may be false ly elevated due to hemolysis. Alkaline Phosphatase 203(H) 35 - 130 U/L 01/23/2025 6:31 AM EDT LAB[facility]ORY [facility] Bilirubin, Total 2.2(H) <=1.2 mg/dL 01/23/2025 6:31 AM EDT LAB[facility]ORY [facility] CALCIUM 7.8(L) 8.4 - 10.2 mg/dL 01/23/2025 6:31 AM EDT LAB[facility]ORY [facility] Protein 4.9(L) 6.0 - 8.3 g/dL 01/23/2025 6:31 AM EDT LAB[facility]ATORY [facility] ALT 35 10 - 50 U/L 01/23/2025 6:31 AM EDT LAB[facility]ATORY [facility] Comment:Results may be false ly elevated due to hemolysis. Blood Venous blood specimen / Unknown Venipuncture / Unknown 01/23/2025 5:32 AM EDT 01/23/2025 6:00 AM EDT us Brent Ng MD LAB BLOOD ORDERABLES Final Resul t LAB[facility]ATORY [facility] [address] [place] [address] * (ABNORMAL) GLUCOSE METER, POINT OF CARE (01/22/2025 9:05 PM EDT) Glucose - POCT 146(H) 70 - 120 mg/dL 01/22/2025 9:11 PM EDT [facility] Blood Whole blood specimen / Unknown 01/22/2025 9:05 PM EDT 01/22/2025 9:11 PM EDT us Issac Craig MD LAB POINT OF CARE TE ST DOCKED DEVICE UNSOLICITED RESULTS Final Result [facility] [address] [place] [address] * (ABNORMAL) GLUCOSE METER, POINT OF CARE (01/22/2025 4:38 PM EDT) Glucose - POCT 129(H) 70 - 120 mg/dL 01/22/2025 4:47 PM EDT [facility] Blood Whole blood specimen / Unknown 01/22/2025 4:38 PM EDT 01/22/2025 4:47 PM EDT us Issac Craig MD LAB POINT OF CARE TE ST DOCKED DEVICE UNSOLICITED RESULTS Final Result [facility] [address] [place] [address] * (ABNORMAL) GLUCOSE METER, POINT OF CARE (01/22/2025 11:27 AM EDT) Glucose - POCT 177(H) 70 - 120 mg/dL 01/22/2025 12:01 PM EDT [facility] Blood Whole blood specimen / Unknown 01/22/2025 11:27 AM EDT 01/22/2025 12:01 PM EDT us Issac Craig MD LAB POINT OF CARE TE ST DOCKED DEVICE UNSOLICITED RESULTS Final Result [facility] [address] [place] [address] * GLUCOSE METER, POINT OF CARE (01/22/2025 7:47 AM EDT) [facility] Glucose - POCT 111 70 - 120 mg/dL 01/22/2025 7:53 AM EDT [facility] Blood Whole blood specimen / Unknown 01/22/2025 7:47 AM EDT 01/22/2025 7:53 AM EDT Issac Craig MD LAB POINT OF CARE TE ST DOCKED DEVICE UNSOLICITED RESULTS Final Result Performing Organization Address City/[facility]/ZIP Co de Phone Number [facility] [address] [place] [address] * (ABNORMAL) CBC (01/22/2025 5:51 AM EDT) [facility] WBC 4.48 4.00 - 10.80 K/uL 01/22/2025 6:29 AM EDT [facility] RBC 2.52 4.50 - 5.25 M/uL 01/22/2025 6:29 AM EDT [facility] HGB 8.2(L) 14.0 - 16.8 g/dL 01/22/2025 6:29 AM EDT [facility] HCT 24.7(L) 40.0 - 48.4 % 01/22/2025 6:29 AM EDT [facility] MCV 98.0 82.0 - 99.5 fL 01/22/2025 6:29 AM EDT [facility] MCH 32.5 27.0 - 34.0 pg 01/22/2025 6:29 AM EDT [facility] MCHC 33.2 32.0 - 36.0 g/dL 01/22/2025 6:29 AM EDT [facility] RDW 19.7 11.5 - 15.5 % 01/22/2025 6:29 AM EDT [facility] PLT 52(L) 140 - 400 K/uL 01/22/2025 6:29 AM EDT [facility] MPV 11.2 6.6 - 11.1 fL 01/22/2025 6:29 AM EDT LABORATORY [facility] nRBCs 0 <=0 /100 WBCs 01/22/2025 6:29 AM EDT LABORATORY C Blood Venous blood specimen / Unknown Venipuncture / Unknown 01/22/2025 5:51 AM EDT 01/22/2025 6:17 AM EDT Gaetano Khan MD LAB BLOOD ORDERABLES Final Resul t Performing Organization Address City/[facility] de Phone Number LABORATORY [facility] [address] [place] [address] * (ABNORMAL) PT INR (01/22/2025 5:51 AM EDT) Prothrombin Time 22.4(H) 11.6 - 15.2 seconds 01/22/2025 6:50 AM EDT LAB[facility]ORY [facility] INR 1.9(H) 0.8 - 1.2 01/22/2025 6:50 AM EDT LAB[facility]ATORY [facility] Blood Venous blood specimen / Unknown Venipuncture / Unknown 01/22/2025 5:51 AM EDT 01/22/2025 6:17 AM EDT Narrative LABORATORY C - 01/22/2025 6:50 AM EDT Warfarin Therapy INR: 2.0-3.0 conventional anticoagulation INR: 2.5-3.5 high intensity anticoagulation Stephanie Brenner DO LAB BLOOD ORDERABLES Final Res ult Performing Organization Address [facility] de Phone Number LABORATORY [facility] [address] [place] [address] * (ABNORMAL) COMPREHENSIVE METABOLIC PANEL (01/22/2025 5:51 AM EDT) BUN 13 6 - 20 mg/dL 01/22/2025 6:51 AM EDT LABORATORY [facility] CREATININE 1.1 0.6 - 1.2 mg/dL 01/22/2025 6:51 AM EDT LABORATORY [facility] EGFR 76 >=60 mL/min 01/22/2025 6:51 AM EDT LAB[facility]ATORY [facility] Comment:eGFR is calculated b ased on the CKD-EPI 2020 equation. SODIUM 125(L) 135 - 146 mmol/L 01/22/2025 6:51 AM EDT LAB[facility]ATORY [facility] POTASSIUM 3.7 3.5 - 5.1 mmol/L 01/22/2025 6:51 AM EDT LAB[facility]ORY [facility] CHLORIDE 96(L) 98 - 107 mmol/L 01/22/2025 6:51 AM EDT LAB[facility] CO2 22 22 - 32 mmol/L 01/22/2025 6:51 AM EDT LAB[facility]ORY [facility] ANION GAP 7 7 - 15 mmol/L 01/22/2025 6:51 AM EDT [facility] GLUCOSE 120 70 - 120 mg/dL 01/22/2025 6:51 AM EDT LAB[facility]ORY [facility] Albumin 2.2(L) 3.8 - 5.0 g/dL 01/22/2025 6:51 AM EDT LAB[facility]ORY [facility] AST 61(H) 10 - 50 U/L 01/22/2025 6:51 AM EDT LAB[facility]ATORY [facility] Alkaline Phosphatase 200(H) 35 - 130 U/L 01/22/2025 6:51 AM EDT LAB[facility]ATORY [facility] Bilirubin, Total 2.9(H) <=1.2 mg/dL 01/22/2025 6:51 AM EDT LAB[facility]ORY [facility] CALCIUM 8.1(L) 8.4 - 10.2 mg/dL 01/22/2025 6:51 AM EDT LAB[facility]ORY [facility] Protein 4.9(L) 6.0 - 8.3 g/dL 01/22/2025 6:51 AM EDT LAB[facility]ORY [facility] ALT 33 10 - 50 U/L 01/22/2025 6:51 AM EDT LAB[facility]ATORY [facility] Blood Venous blood specimen / Unknown Venipuncture / Unknown 01/22/2025 5:51 AM EDT 01/22/2025 6:17 AM EDT us Brent Ng MD LAB BLOOD ORDERABLES Final Resul t [facility]ORY [facility] [address] [place] [address] * (ABNORMAL) GLUCOSE METER, POINT OF CARE (01/21/2025 8:50 PM EDT) [facility] Glucose - POCT 124(H) 70 - 120 mg/dL 01/21/2025 9:12 PM EDT [facility] [employer] Blood Whole blood specimen / Unknown 01/21/2025 8:50 PM EDT 01/21/2025 9:12 PM EDT Sammy Martinez MD LAB POINT OF CARE TEST DOCKED DEVICE UNSOLICITED RESULTS Final Result [facility] [address] [place] [address] * (ABNORMAL) GLUCOSE METER, POINT OF CARE (01/21/2025 4:09 PM EDT) [facility] Glucose - POCT 189(H) 70 - 120 mg/dL 01/21/2025 4:33 PM EDT [facility] [employer] Blood Whole blood specimen / Unknown 01/21/2025 4:09 PM EDT 01/21/2025 4:33 PM EDT Sammy Martinez MD LAB POINT OF CARE TEST DOCKED DEVICE UNSOLICITED RESULTS Final Result [place] [place] [address] [place] [address] * (ABNORMAL) CBC (01/21/2025 3:32 PM EDT) [facility] WBC 5.11 4.00 - 10.80 K/uL 01/21/2025 3:46 PM EDT LAB[facility]ATORY [facility] RBC 2.47 4.50 - 5.25 M/uL 01/21/2025 3:46 PM EDT LAB[facility]ORY [facility] HGB 8.2(L) 14.0 - 16.8 g/dL 01/21/2025 3:46 PM EDT LAB[facility]ORY [facility] HCT 24.7(L) 40.0 - 48.4 % 01/21/2025 3:46 PM EDT LAB[facility]ORY [facility] MCV 100.0 82.0 - 99.5 fL 01/21/2025 3:46 PM EDT LABORATORY [facility] MCH 33.2 27.0 - 34.0 pg 01/21/2025 3:46 PM EDT LABORATORY [facility] MCHC 33.2 32.0 - 36.0 g/dL 01/21/2025 3:46 PM EDT LABORATORY [facility] RDW 19.1 11.5 - 15.5 % 01/21/2025 3:46 PM EDT LABORATORY [facility] PLT 46(L) 140 - 400 K/uL 01/21/2025 3:46 PM EDT LABORATORY [facility] MPV 11.0 6.6 - 11.1 fL 01/21/2025 3:46 PM EDT LABORATORY [facility] nRBCs 0 <=0 /100 WBCs 01/21/2025 3:46 PM EDT LABORATORY [facility] Blood Venous blood specimen / Unknown Venipuncture / Unknown 01/21/2025 3:32 PM EDT 01/21/2025 3:[address] [facility] LAB BLOOD ORDERABLES Final Res ult LABORATORY [facility] [address] [place] [address] * TRANSFUSE PACKED RED BLOOD CELLS (01/21/2025 2:27 PM EDT) [facility] BLD BANK TRANFUSE ORDERABLES F inal Result * TRANSFUSE PACKED RED BLOOD CELLS (01/21/2025 2:27 PM EDT) [facility] BLD BANK TRANFUSE ORDERABLES F inal Result * (ABNORMAL) GLUCOSE METER, POINT OF CARE (01/21/2025 11:47 AM EDT) [facility] Glucose - POCT 122(H) 70 - 120 mg/dL 01/21/2025 12:04 PM EDT [facility] [employer] Blood Whole blood specimen / Unknown 01/21/2025 11:47 AM EDT 01/21/2025 12:04 PM EDT Sammy Martinez MD LAB POINT OF CARE TEST DOCKED DEVICE UNSOLICITED RESULTS Final Result [facility] [address] [place] [address] * TYPE AND SCREEN (01/21/2025 8:17 AM EDT) ABO A 01/21/2025 9:01 AM EDT LAB[facility]ORY [facility] BLOOD BANK Rh Positive 01/21/2025 9:01 AM EDT LAB[facility]ATORY [facility] BLOOD BANK Red Blood Cell Antibody Screen Negative 01/21/2025 9:01 AM EDT LAB[facility]ATORY [facility] BLOOD BANK Specimen Expiration Date 01/24/2025 23:59 01/21/2025 9:01 AM EDT LABORATORY C BLOOD BANK Blood Venous blood specimen / Unknown Venipuncture / Unknown 01/21/2025 8:17 AM EDT 01/21/2025 8:22 AM EDT Bong Chahal MD LAB BLOOD BANK TEST ORDE RABLES Final Result LABORATORY [facility] BLOOD BANK [address] [place], [place] [id number] * PREPARE PACKED RED BLOOD CELLS (01/21/2025 8:10 AM EDT) Unit Product Code [id number] 01/22/2025 12:10 PM EDT LAB[facility]ATORY [facility] BLOOD BANK Unit Number [id number] 01/22/2025 12:10 PM EDT LAB[facility]ATORY [facility] BLOOD BANK Unit ABO A 01/22/2025 12:10 PM EDT LAB[facility] BLOOD BANK Unit Rh NEG 01/22/2025 12:10 PM EDT [facility] BLOOD BANK Unit Crossmatch Compatible 01/21/2025 9:07 AM EDT LAB[facility]ORY [facility] BLOOD BANK Unit Status PT 01/22/2025 12:10 PM EDT LAB[facility]ORY [facility] BLOOD BANK Unit Blood Type ANEG 01/22/2025 12:10 PM EDT LAB[facility]ORY [facility] BLOOD BANK Unit Expiration [id number] 01/22/2025 12:10 PM EDT LAB[facility]ATORY [facility] BLOOD BANK Unit Barcode 0600 01/22/2025 12:10 PM EDT LABORATORY [facility] BLOOD BANK 01/21/2025 8:10 AM EDT Stephaniejaime Brenner DO BLD BANK PRODUCT ORDERABLES Ed ited Result - Final LABORATORY [facility] BLOOD BANK [address] [place] [address] * (ABNORMAL) GLUCOSE METER, POINT OF CARE (01/21/2025 7:13 AM EDT) Glucose - POCT 183(H) 70 - 120 mg/dL 01/21/2025 8:04 AM EDT [facility] Blood Whole blood specimen / Unknown 01/21/2025 7:13 AM EDT 01/21/2025 8:04 AM EDT Sammy Martinez MD LAB POINT OF CARE TEST DOCKED DEVICE UNSOLICITED RESULTS Final Result [facility] [address] [place] [address] * PHOSPHORUS (01/21/2025 6:50 AM EDT) Phosphorus 2.5 2.5 - 4.8 mg/dL 01/21/2025 1:20 PM EDT LABORATORY [facility] Blood Venous blood specimen / Unknown Venipuncture / Unknown 01/21/2025 6:50 AM EDT 01/21/2025 7:13 AM EDT us Stephanie Brenner DO LAB BLOOD ORDERABLES Final Res ult LABORATORY [facility] [address] [place] [address] * MAGNESIUM (01/21/2025 6:50 AM EDT) Magnesium 1.9 1.5 - 2.6 mg/dL 01/21/2025 1:20 PM EDT LAB[facility]ATORY [facility] Blood Venous blood specimen / Unknown Venipuncture / Unknown 01/21/2025 6:50 AM EDT 01/21/2025 7:13 AM EDT us Stephanie Illar DO LAB BLOOD ORDERABLES Final Res ult LAB[facility]ATORY [facility] [address] [place] [address] * (ABNORMAL) CBC (01/21/2025 6:50 AM EDT) WBC 4.36 4.00 - 10.80 K/uL 01/21/2025 7:18 AM EDT LAB[facility]ORY [facility] RBC 2.04 4.50 - 5.25 M/uL 01/21/2025 7:18 AM EDT LAB[facility] HGB 6.8(L) 14.0 - 16.8 g/dL 01/21/2025 7:18 AM EDT LAB[facility] HCT 20.6(L) 40.0 - 48.4 % 01/21/2025 7:18 AM EDT LAB[facility] MCV 101.0 82.0 - 99.5 fL 01/21/2025 7:18 AM EDT LAB[facility] MCH 33.3 27.0 - 34.0 pg 01/21/2025 7:18 AM EDT LAB[facility] MCHC 33.0 32.0 - 36.0 g/dL 01/21/2025 7:18 AM EDT [facility] RDW 19.9 11.5 - 15.5 % 01/21/2025 7:18 AM EDT LAB[facility]ORY [facility] PLT 49(L) 140 - 400 K/uL 01/21/2025 7:18 AM EDT LAB[facility]ORY [facility] MPV 10.2 6.6 - 11.1 fL 01/21/2025 7:18 AM EDT LAB[facility]ATORY [facility] nRBCs 0 <=0 /100 WBCs 01/21/2025 7:18 AM EDT [facility] Blood Venous blood specimen / Unknown Venipuncture / Unknown 01/21/2025 6:50 AM EDT 01/21/2025 7:11 AM EDT Gaetaon Khan MD LAB BLOOD ORDERABLES Final Resul t Performing Organization Address [facility] Co de Phone Number LABORATORY [facility] [address] [place] [address] * (ABNORMAL) PT INR (01/21/2025 6:50 AM EDT) Prothrombin Time 22.5(H) 11.6 - 15.2 seconds 01/21/2025 7:40 AM EDT LABORATORY C INR 2.0(H) 0.8 - 1.2 01/21/2025 7:40 AM EDT LABORATORY [facility] Blood Venous blood specimen / Unknown Venipuncture / Unknown 01/21/2025 6:50 AM EDT 01/21/2025 7:13 AM EDT Narrative LABORATORY [facility] - 01/21/2025 7:40 AM EDT Warfarin Therapy INR: 2.0-3.0 conventional anticoagulation INR: 2.5-3.5 high intensity anticoagulation Stephanie Brenner DO LAB BLOOD ORDERABLES Final Res ult Performing Organization Address [facility] de Phone Number LABORATORY [address] [address] * (ABNORMAL) COMPREHENSIVE METABOLIC PANEL (01/21/2025 6:50 AM EDT) BUN 15 6 - 20 mg/dL 01/21/2025 7:39 AM EDT LABORATORY [facility] CREATININE 1.2 0.6 - 1.2 mg/dL 01/21/2025 7:39 AM EDT LABORATORY [facility] EGFR 68 >=60 mL/min 01/21/2025 7:39 AM EDT LABORATORY [facility] Comment:eGFR is calculated b ased on the CKD-EPI 2020 equation. SODIUM 127(L) 135 - 146 mmol/L 01/21/2025 7:39 AM EDT LAB[facility]ORY [facility] POTASSIUM 3.5 3.5 - 5.1 mmol/L 01/21/2025 7:39 AM EDT LAB[facility] CHLORIDE 95(L) 98 - 107 mmol/L 01/21/2025 7:39 AM EDT [facility] CO2 21(L) 22 - 32 mmol/L 01/21/2025 7:39 AM EDT LAB[facility] ANION GAP 11 7 - 15 mmol/L 01/21/2025 7:39 AM EDT LAB[facility] GLUCOSE 164(H) 70 - 120 mg/dL 01/21/2025 7:39 AM EDT LAB[facility] Albumin 2.4(L) 3.8 - 5.0 g/dL 01/21/2025 7:39 AM EDT LAB[facility] AST 56(H) 10 - 50 U/L 01/21/2025 7:39 AM EDT [facility] Alkaline Phosphatase 181(H) 35 - 130 U/L 01/21/2025 7:39 AM EDT LAB[facility] Bilirubin, Total 1.7(H) <=1.2 mg/dL 01/21/2025 7:39 AM EDT [facility] CALCIUM 7.9(L) 8.4 - 10.2 mg/dL 01/21/2025 7:39 AM EDT [facility] Protein 4.8(L) 6.0 - 8.3 g/dL 01/21/2025 7:39 AM EDT [facility] ALT 35 10 - 50 U/L 01/21/2025 7:39 AM EDT [facility] Blood Venous blood specimen / Unknown Venipuncture / Unknown 01/21/2025 6:50 AM EDT 01/21/2025 7:13 AM EDT Brent Ng MD LAB BLOOD ORDERABLES Final Resul t LABORATORY [facility] [address] [place] [address] * CTA TAVR GATED STUDY (01/20/2025 9:39 PM EDT) Anatomical Region Laterality Modality Chest, Abdomen, Pelvis, Body Com puted Tomography 01/21/2025 4:26 AM EDT Impressions 01/21/2025 4:23 AM EDT IMPRESSION 1. There is a tri-leaflet aortic valve. There is aortic valve leaflet thickening and calcification with associated motion restriction. The aortic valve area/aperture is approximately 2.5-2.6 square centimeters. 2. Cirrhosis and portal hypertension with moderate ascites. 3. Suspected hepatocellular carcinoma better assessed on prior MRI. 4. Additional findings as above. Narrative 01/21/2025 4:23 AM EDT EXAM EXAM: CTA TAVR GATED STUDY DATE TIME: 01/20/2025 - 01/20/2025 9:39 pm HISTORY borderline severe TECHNIQUE Computed tomography angiography images were obtained of the chest, abdomen and pelvis from the lung apices through the pubic symphysis after the administration of intravenous contrast material. Coronal, axial and sagittal reformations were performed on the CT scanner workstation. 3D and maximal intensity projection images were created. Bolus tracking utilized. Noncontrast baseline scan acquired followed by post contrast images. Series/sequences obtained: 1. Noncontrast prospectively gated CT of the heart 2. Postcontrast CT angiographic images of the heart utilizing prospective/axial ECG gating with wide RR padding, 20-70 percent 3. Non gated CT angiography of the chest, abdomen and pelvis Oral Contrast: Oral contrast was not administered. IV Contrast: IV contrast was administered. Type and volume documented separately by principal technologist. Other contrast: No additional contrast was administered. COMPARISON POINT OF CARE US - GUIDED PARACENTESIS, ACC: [id number], dated 2025-01-17 13:31:24; MRI LIVER W WO CONTRAST, ACC: [id number], dated 2024-11-14 12:05:23; MRI LIVER W WO CONTRAST, ACC: [id number], dated 2024-02-16 09:19:55None available. FINDINGS AORTIC VALVE: There is a tri-leaflet aortic valve. There is aortic valve leaflet thickening and calcification with associated motion restriction. The aortic valve area/aperture is approximately 2.5-2.6 square centimeters. Three cusp view: ISRAELI 2, MANAGER OF RADIOLOGY 2 Anterior view: ROBINS 0, CAU 0 No cranial caudal: ISRAELI 0, Ca U 0 - ANNULUS: Diameter 24.1 x 29.5 mm, average 26.2 millimeters, Circumference: 84.3 mm Area: 5.4 cm2 - DEPLOYMENT ANGLE : 41 degrees - VALVE PLANE TO LT MAIN: 14.6 mm - VALVE PLANE TO RCA: 18.7 mm - SINUS OF VALSALVA: 36.8 x 34.2 x 35 mm - SINOTUBULAR JUNCTION: 30.8 x 30.9 mm AORTA : - ASCENDING AORTA: 33.8 x 34.8 mm - MINIMAL DIAMETER ABDOMINAL AORTA: 16.7 x 16.9 m RIGHT PROXIMAL FEMORAL RUNOFF: - common iliac artery. 12.2 x 8.3 mm - external iliac artery. 8.3 x 8.5 mm - common femoral artery. 8.2 x 7.9 mm LEFT PROXIMAL FEMORAL RUNOFF: - common iliac artery. 9.5 x 11.3 mm - external iliac artery. 8.7 x 8 mm - common femoral artery. 7.5 x 8.3 mm Note: All of the above diameters are the minimal diameter encountered in the segment SUPERVISOR GARAGE bifurcation: INGUINAL REGIONS: Carotid arteries: Non-vascular: CHEST: LINES AND DEVICES: None. CHEST WALL LOWER NECK: Mild nonspecific left chest wall edema. Gynecomastia. MEDIASTINUM LYMPH NODES: No thoracic adenopathy by CT size criteria. No mediastinal mass. No focal fluid collection or hematoma. CARDIOVASCULAR: Moderate coronary artery calcification. LUNGS, AIRWAYS AND PLEURA: Small left pleural effusion and adjacent dependent atelectasis or Scattered benign-appearing pulmonary nodule(s) observed, likely sequela of prior infection/inflammation, as noted in PACS. No suspicious pulmonary nodule identified. BONES: No acute fracture, malalignment or focal osseous destruction. ABDOMEN PELVIS: LINES AND DEVICES: None. LIVER: Nodular/cirrhotic appearing liver. Please note this exam does not exclude underlying hepatocellular carcinoma. BILIARY: No biliary dilatation.No evidence of acute cholecystitis.Cholelithiasis. PANCREAS: Nonspecific peripancreatic edema/fluid given presence of ascites elsewhere. No ductal dilatation or asymmetric enhancement. SPLEEN: Mild splenomegaly. ADRENALS: Unremarkable. KIDNEYS/URETERS: No hydronephrosis or nephrolithiasis. No perinephric fluid collections. GASTROINTESTINAL TRACT: No bowel dilatation. Please note that this exam does not exclude underlying colorectal malignancy and routine screening colonoscopy should be performed as per USPSTF guidelines. BLADDER: Unremarkable. REPRODUCTIVE ORGANS: Unremarkable. LYMPH NODES: No abominal or pelvic lymphadenopathy by CT size criteria. VESSELS: Arterial atherosclerotic calcifications. No AAA. Large shunt between perisplenic varices and a left pelvic lumbar vein. PERITONEUM/RETROPERITONEUM: Moderate ascites. No free air. No discrete rim enhancing fluid collection. ABDOMINAL WALL/SOFT TISSUES: Mild/moderate body wall edema. No free air. BONES: No acute fracture, malalignment or focal osseous destruction. Procedure Note Bernardo Damon MD - 01/21/2025 EXAM EXAM: CTA TAVR GATED STUDY DATE TIME: 01/20/2025 - 01/20/2025 9:39 pm HISTORY borderline severe TECHNIQUE Computed tomography angiography images were obtained of the chest, abdomenand pelvis from the lung apices through the pubic symphysis after theadministration of intravenous contrast material. Coronal, axial andsagittal reformations were performed on the CT scanner workstation. 3Dand maximal intensity projection images were created. Bolus trackingutilized. Noncontrast baseline scan acquired followed by post contrastimages. Series/sequences obtained: 1. Noncontrast prospectively gated CT of the heart 2. Postcontrast CT angiographic images of the heart utilizingprospective/axial ECG gating with wide RR padding, 20-70 percent 3. Non gated CT angiography of the chest, abdomen and pelvis Oral Contrast: Oral contrast was not administered. IV Contrast: IV contrast was administered. Type and volume documentedseparately by principal technologist. Other contrast: No additional contrast was administered. COMPARISON POINT OF CARE US - GUIDED PARACENTESIS, ACC: [id number], dated [id number]:24; MRI LIVER W WO CONTRAST, ACC: [id number], dated 2024-11-14 12:05:23; MRI LIVER W WO CONTRAST, ACC: [id number], dated 2024-02-16 09:19:55Noneavailable. FINDINGS AORTIC VALVE: There is a tri-leaflet aortic valve. There is aortic valveleaflet thickening and calcification with associated motion restriction.The aortic valve area/aperture is approximately 2.5-2.6 squarecentimeters. Three cusp view: ISRAELI 2, MANAGER OF RADIOLOGY 2 Anterior view: ROBINS 0, CAU 0 No cranial caudal: ISRAELI 0, Ca U 0 - ANNULUS: Diameter 24.1 x 29.5 mm, average 26.2 millimeters,Circumference: 84.3 mm Area: 5.4 cm2 - DEPLOYMENT ANGLE : 41 degrees - VALVE PLANE TO LT MAIN: 14.6 mm - VALVE PLANE TO RCA: 18.7 mm - SINUS OF VALSALVA: 36.8 x 34.2 x 35 mm - SINOTUBULAR JUNCTION: 30.8 x 30.9 mm AORTA : - ASCENDING AORTA: 33.8 x 34.8 mm - MINIMAL DIAMETER ABDOMINAL AORTA: 16.7 x 16.9 m RIGHT PROXIMAL FEMORAL RUNOFF: - common iliac artery. 12.2 x 8.3 mm - external iliac artery. 8.3 x 8.5 mm - common femoral artery. 8.2 x 7.9 mm LEFT PROXIMAL FEMORAL RUNOFF: - common iliac artery. 9.5 x 11.3 mm - external iliac artery. 8.7 x 8 mm - common femoral artery. 7.5 x 8.3 mm Note: All of the above diameters are the minimal diameter encountered inthe segment [employer]PERVISOR GARAGE bifurcation: INGUINAL REGIONS: Carotid arteries: Non-vascular: CHEST: LINES AND DEVICES: None. CHEST WALL LOWER NECK: Mild nonspecific left chest wall edema.Gynecomastia. MEDIASTINUM LYMPH NODES: No thoracic adenopathy by CT size criteria. Nomediastinal mass. No focal fluid collection or hematoma. CARDIOVASCULAR: Moderate coronary artery calcification. LUNGS, AIRWAYS AND PLEURA: Small left pleural effusion and adjacentdependent atelectasis or Scattered benign-appearing pulmonary nodule(s)observed, likely sequela of prior infection/inflammation, as noted inPACS. No suspicious pulmonary nodule identified. BONES: No acute fracture, malalignment or focal osseous destruction. ABDOMEN PELVIS: LINES AND DEVICES: None. LIVER: Nodular/cirrhotic appearing liver. Please note this exam does notexclude underlying hepatocellular carcinoma. BILIARY: No biliary dilatation.No evidence of acutecholecystitis.Cholelithiasis. PANCREAS: Nonspecific peripancreatic edema/fluid given presence of asciteselsewhere. No ductal dilatation or asymmetric enhancement. SPLEEN: Mild splenomegaly. ADRENALS: Unremarkable. KIDNEYS/URETERS: No hydronephrosis or nephrolithiasis. No perinephricfluid collections. GASTROINTESTINAL TRACT: No bowel dilatation. Please note that this exam does not exclude underlying colorectalmalignancy and routine screening colonoscopy should be performed as perUSPSTF guidelines. BLADDER: Unremarkable. REPRODUCTIVE ORGANS: Unremarkable. LYMPH NODES: No abominal or pelvic lymphadenopathy by CT size criteria. VESSELS: Arterial atherosclerotic calcifications. No AAA. Large shuntbetween perisplenic varices and a left pelvic lumbar vein. PERITONEUM/RETROPERITONEUM: Moderate ascites. No free air. No discreterim enhancing fluid collection. ABDOMINAL WALL/SOFT TISSUES: Mild/moderate body wall edema. No freeair. BONES: No acute fracture, malalignment or focal osseous destruction. IMPRESSION IMPRESSION 1. There is a tri-leaflet aortic valve. There is aortic valve leafletthickening and calcification with associated motion restriction. Theaortic valve area/aperture is approximately 2.5-2.6 square centimeters. 2. Cirrhosis and portal hypertension with moderate ascites. 3. Suspected hepatocellular carcinoma better assessed on prior MRI. 4. Additional findings as above. Stephanie Illar DO RAD CT Final Result * (ABNORMAL) GLUCOSE METER, POINT OF CARE (01/20/2025 9:05 PM EDT) [facility] Glucose - POCT 202(H) 70 - 120 mg/dL 01/20/2025 9:16 PM EDT [facility] Blood Whole blood specimen / Unknown 01/20/2025 9:05 PM EDT 01/20/2025 9:16 PM EDT Sammy Martinez MD LAB POINT OF CARE TEST DOCKED DEVICE UNSOLICITED RESULTS Final Result [facility] [address] [place] [address] * (ABNORMAL) GLUCOSE METER, POINT OF CARE (01/20/2025 4:37 PM EDT) [facility] Glucose - POCT 156(H) 70 - 120 mg/dL 01/20/2025 9:15 PM EDT [facility] Blood Whole blood specimen / Unknown 01/20/2025 4:37 PM EDT 01/20/2025 9:15 PM EDT Sammy Martinez MD LAB POINT OF CARE TEST DOCKED DEVICE UNSOLICITED RESULTS Final Result [facility] [address] [place] [address] * (ABNORMAL) GLUCOSE METER, POINT OF CARE (01/20/2025 12:00 PM EDT) Glucose - POCT 124(H) 70 - 120 mg/dL 01/20/2025 12:19 PM EDT [facility] Blood Whole blood specimen / Unknown 01/20/2025 12:00 PM EDT 01/20/2025 12:19 PM EDT Sammy Martinez MD LAB POINT OF CARE TEST DOCKED DEVICE UNSOLICITED RESULTS Final Result Performing Organization Address City/[facility]/ZIP Co de Phone Number [facility] [address] [place] [address] * GLUCOSE METER, POINT OF CARE (01/20/2025 7:39 AM EDT) [facility] Glucose - POCT 100 70 - 120 mg/dL 01/20/2025 7:52 AM EDT [facility] Blood Whole blood specimen / Unknown 01/20/2025 7:39 AM EDT 01/20/2025 7:52 AM EDT Sammy Martinez MD LAB POINT OF CARE TEST DOCKED DEVICE UNSOLICITED RESULTS Final Result Performing Organization Address [facility] Co de Phone Number [place] [address] [place] [address] * (ABNORMAL) CBC (01/20/2025 6:44 AM EDT) [facility] WBC 5.54 4.00 - 10.80 K/uL 01/20/2025 7:07 AM EDT LABORATORY [facility] RBC 2.17 4.50 - 5.25 M/uL 01/20/2025 7:07 AM EDT LABORATORY [facility] HGB 7.2(L) 14.0 - 16.8 g/dL 01/20/2025 7:07 AM EDT LABORATORY [facility] HCT 21.7(L) 40.0 - 48.4 % 01/20/2025 7:07 AM EDT LABORATORY [facility] MCV 100.0 82.0 - 99.5 fL 01/20/2025 7:07 AM EDT LABORATORY [facility] MCH 33.2 27.0 - 34.0 pg 01/20/2025 7:07 AM EDT LABORATORY GM MCHC 33.2 32.0 - 36.0 g/dL 01/20/2025 7:07 AM EDT LABORATORY GM RDW 20.1 11.5 - 15.5 % 01/20/2025 7:07 AM EDT LABORATORY GM PLT 54(L) 140 - 400 K/uL 01/20/2025 7:07 AM EDT LABORATORY [facility] MPV 9.9 6.6 - 11.1 fL 01/20/2025 7:07 AM EDT LABORATORY [facility] nRBCs 0 <=0 /100 WBCs 01/20/2025 7:07 AM EDT LABORATORY C Blood Venous blood specimen / Unknown Venipuncture / Unknown 01/20/2025 6:44 AM EDT 01/20/2025 6:52 AM EDT Gaetano Khan MD LAB BLOOD ORDERABLES Final Resul t Performing Organization Address [facility] de Phone Number LABORATORY [facility] [address] [place] [address] * (ABNORMAL) PT INR (01/20/2025 6:44 AM EDT) [facility] Prothrombin Time 21.9(H) 11.6 - 15.2 seconds 01/20/2025 8:15 AM EDT LABORATORY [facility] INR 1.9(H) 0.8 - 1.2 01/20/2025 8:15 AM EDT LABORATORY [facility] Blood Venous blood specimen / Unknown Venipuncture / Unknown 01/20/2025 6:44 AM EDT 01/20/2025 6:52 AM EDT Narrative LABORATORY C - 01/20/2025 8:15 AM EDT Warfarin Therapy INR: 2.0-3.0 conventional anticoagulation INR: 2.5-3.5 high intensity anticoagulation us Stephanie Brenner DO LAB BLOOD ORDERABLES Final Res ult Performing Organization Address City/[facility] de Phone Number LABORATORY [facility] [address] [place] [address] * (ABNORMAL) COMPREHENSIVE METABOLIC PANEL (01/20/2025 6:44 AM EDT) BUN 15 6 - 20 mg/dL 01/20/2025 7:29 AM EDT LABORATORY GM CREATININE 1.1 0.6 - 1.2 mg/dL 01/20/2025 7:29 AM EDT [facility] EGFR 79 >=60 mL/min 01/20/2025 7:29 AM EDT [facility] Comment:eGFR is calculated b ased on the CKD-EPI 2020 equation. SODIUM 123(L) 135 - 146 mmol/L 01/20/2025 7:29 AM EDT [facility] POTASSIUM 3.6 3.5 - 5.1 mmol/L 01/20/2025 7:29 AM EDT [facility] CHLORIDE 92(L) 98 - 107 mmol/L 01/20/2025 7:29 AM EDT [facility] CO2 22 22 - 32 mmol/L 01/20/2025 7:29 AM EDT [facility] ANION GAP 9 7 - 15 mmol/L 01/20/2025 7:29 AM EDT [facility] GLUCOSE 111 70 - 120 mg/dL 01/20/2025 7:29 AM EDT [facility] Albumin 2.4(L) 3.8 - 5.0 g/dL 01/20/2025 7:29 AM EDT [facility] AST 64(H) 10 - 50 U/L 01/20/2025 7:29 AM EDT [facility] Alkaline Phosphatase 189(H) 35 - 130 U/L 01/20/2025 7:29 AM EDT [facility] Bilirubin, Total 1.9(H) <=1.2 mg/dL 01/20/2025 7:29 AM EDT [facility] CALCIUM 7.8(L) 8.4 - 10.2 mg/dL 01/20/2025 7:29 AM EDT [facility] Protein 5.0(L) 6.0 - 8.3 g/dL 01/20/2025 7:29 AM EDT [facility] ALT 38 10 - 50 U/L 01/20/2025 7:29 AM EDT [facility] Blood Venous blood specimen / Unknown Venipuncture / Unknown 01/20/2025 6:44 AM EDT 01/20/2025 6:52 AM EDT Brent Ng MD LAB BLOOD ORDERABLES Final Resul t LABORATORY [facility] [address] [place] [address] * (ABNORMAL) GLUCOSE METER, POINT OF CARE (01/19/2025 9:08 PM EDT) Glucose - POCT 153(H) 70 - 120 mg/dL 01/19/2025 9:13 PM EDT [facility] Blood Whole blood specimen / Unknown 01/19/2025 9:08 PM EDT 01/19/2025 9:13 PM EDT Sammy Martinez MD LAB POINT OF CARE TEST DOCKED DEVICE UNSOLICITED RESULTS Final Result Performing Organization Address [facility]/ZIP Co de Phone Number [facility] [address] [place] [address] * (ABNORMAL) GLUCOSE METER, POINT OF CARE (01/19/2025 4:09 PM EDT) Glucose - POCT 169(H) 70 - 120 mg/dL 01/19/2025 4:24 PM EDT [facility] Blood Whole blood specimen / Unknown 01/19/2025 4:09 PM EDT 01/19/2025 4:24 PM EDT Sammy Martinez MD LAB POINT OF CARE TEST DOCKED DEVICE UNSOLICITED RESULTS Final Result Performing Organization Address City/[facility]/ZIP Co de Phone Number [facility] [address] [place] [address] * (ABNORMAL) GLUCOSE METER, POINT OF CARE (01/19/2025 11:51 AM EDT) Glucose - POCT 200(H) 70 - 120 mg/dL 01/19/2025 4:25 PM EDT [facility] Blood Whole blood specimen / Unknown 01/19/2025 11:51 AM EDT 01/19/2025 4:25 PM EDT Sammy Martinez MD LAB POINT OF CARE TEST DOCKED DEVICE UNSOLICITED RESULTS Final Result Performing Organization Address City/[facility] Co de Phone Number [facility] [address] [place] [address] * (ABNORMAL) PT INR (01/19/2025 8:04 AM EDT) Prothrombin Time 21.3(H) 11.6 - 15.2 seconds 01/19/2025 8:55 AM EDT LABORATORY [facility] INR 1.8(H) 0.8 - 1.2 01/19/2025 8:55 AM EDT LABORATORY [facility] Blood Venous blood specimen / Unknown Venipuncture / Unknown 01/19/2025 8:04 AM EDT 01/19/2025 8:10 AM EDT Narrative LAB[facility]ATORY [facility] - 01/19/2025 8:55 AM EDT Warfarin Therapy INR: 2.0-3.0 conventional anticoagulation INR: 2.5-3.5 high intensity anticoagulation us Stephanie Brenner DO LAB BLOOD ORDERABLES Final Res ult Performing Organization Address City/[facility] Co de Phone Number LABORATORY [facility] [address] [place] [address] * (ABNORMAL) COMPREHENSIVE METABOLIC PANEL (01/19/2025 8:04 AM EDT) BUN 15 6 - 20 mg/dL 01/19/2025 8:42 AM EDT LABORATORY [facility] CREATININE 1.0 0.6 - 1.2 mg/dL 01/19/2025 8:42 AM EDT LABORATORY [facility] EGFR 83 >=60 mL/min 01/19/2025 8:42 AM EDT LABORATORY [facility] Comment:eGFR is calculated b ased on the CKD-EPI 2020 equation. SODIUM 120(L) 135 - 146 mmol/L 01/19/2025 8:42 AM EDT [facility] POTASSIUM 3.6 3.5 - 5.1 mmol/L 01/19/2025 8:42 AM EDT [facility] CHLORIDE 89(L) 98 - 107 mmol/L 01/19/2025 8:42 AM EDT [facility] CO2 22 22 - 32 mmol/L 01/19/2025 8:42 AM EDT [facility] ANION GAP 9 7 - 15 mmol/L 01/19/2025 8:42 AM EDT [facility] GLUCOSE 119 70 - 120 mg/dL 01/19/2025 8:42 AM EDT [facility] Albumin 2.1(L) 3.8 - 5.0 g/dL 01/19/2025 8:42 AM EDT [facility] AST 75(H) 10 - 50 U/L 01/19/2025 8:42 AM EDT [facility] Alkaline Phosphatase 211(H) 35 - 130 U/L 01/19/2025 8:42 AM EDT [facility] Bilirubin, Total 2.0(H) <=1.2 mg/dL 01/19/2025 8:42 AM EDT [facility] CALCIUM 7.8(L) 8.4 - 10.2 mg/dL 01/19/2025 8:42 AM EDT [facility] Protein 5.0(L) 6.0 - 8.3 g/dL 01/19/2025 8:42 AM EDT [facility] ALT 43 10 - 50 U/L 01/19/2025 8:42 AM EDT [facility] Blood Venous blood specimen / Unknown Venipuncture / Unknown 01/19/2025 8:04 AM EDT 01/19/2025 8:10 AM EDT us Brent Ng MD LAB BLOOD ORDERABLES Final Resul t LABORATORY [facility] [address], [place] [id number] * EXTRA LAVENDER TOP (01/19/2025 7:58 AM EDT) Blood Venous blood specimen / Unknown 01/19/2025 7:58 AM EDT 01/19/2025 8:14 AM EDT us Sammy Martinez MD LAB BLOOD ORDERABLES Final Result LABORATORY [facility] [address] [place] [address] * (ABNORMAL) GLUCOSE METER, POINT OF CARE (01/19/2025 7:21 AM EDT) Glucose - POCT 128(H) 70 - 120 mg/dL 01/19/2025 4:23 PM EDT [facility] Blood Whole blood specimen / Unknown 01/19/2025 7:21 AM EDT 01/19/2025 4:23 PM EDT Sammy Martinez MD LAB POINT OF CARE TEST DOCKED DEVICE UNSOLICITED RESULTS Final Result Performing Organization Address City/[facility]/ZIP Co de Phone Number [facility] [address] [place] [address] * (ABNORMAL) GLUCOSE METER, POINT OF CARE (01/18/2025 8:45 PM EDT) Glucose - POCT 142(H) 70 - 120 mg/dL 01/18/2025 9:06 PM EDT [facility] Blood Whole blood specimen / Unknown 01/18/2025 8:45 PM EDT 01/18/2025 9:06 PM EDT Sammy Martinez MD LAB POINT OF CARE TEST DOCKED DEVICE UNSOLICITED RESULTS Final Result [facility] [address] [place] [address] * (ABNORMAL) GLUCOSE METER, POINT OF CARE (01/18/2025 4:27 PM EDT) Glucose - POCT 172(H) 70 - 120 mg/dL 01/18/2025 6:56 PM EDT [facility] Blood Whole blood specimen / Unknown 01/18/2025 4:27 PM EDT 01/18/2025 6:56 PM EDT Sammy Martinez MD LAB POINT OF CARE TEST DOCKED DEVICE UNSOLICITED RESULTS Final Result [facility] [address] [place] [address] * (ABNORMAL) GLUCOSE METER, POINT OF CARE (01/18/2025 11:24 AM EDT) Glucose - POCT 204(H) 70 - 120 mg/dL 01/18/2025 6:54 PM EDT [facility] Blood Whole blood specimen / Unknown 01/18/2025 11:24 AM EDT 01/18/2025 6:54 PM EDT Sammy Martinez MD LAB POINT OF CARE TEST DOCKED DEVICE UNSOLICITED RESULTS Final Result Performing Organization Address [facility]/ZIP Co de Phone Number [facility] [address] [place] [address] * (ABNORMAL) PT INR (01/18/2025 9:15 AM EDT) Prothrombin Time 21.5(H) 11.6 - 15.2 seconds 01/18/2025 10:09 AM EDT LABORATORY [facility] INR 1.8(H) 0.8 - 1.2 01/18/2025 10:09 AM EDT LABORATORY [facility] Blood Venous blood specimen / Unknown Venipuncture / Unknown 01/18/2025 9:15 AM EDT 01/18/2025 9:24 AM EDT Narrative LAB[facility]ATORY [facility] - 01/18/2025 10:09 AM EDT Warfarin Therapy INR: 2.0-3.0 conventional anticoagulation INR: 2.5-3.5 high intensity anticoagulation us Stephanie Brenner DO LAB BLOOD ORDERABLES Final Res ult LABORATORY [facility] [address] [place] [address] * (ABNORMAL) PHOSPHORUS (01/18/2025 9:15 AM EDT) Phosphorus 2.3(L) 2.5 - 4.8 mg/dL 01/18/2025 9:53 AM EDT LABORATORY C Blood Venous blood specimen / Unknown Venipuncture / Unknown 01/18/2025 9:15 AM EDT 01/18/2025 9:24 AM EDT us Brent Ng MD LAB BLOOD ORDERABLES Final Resul t LABORATORY [facility] [address] [place] [address] * MAGNESIUM (01/18/2025 9:15 AM EDT) Pathologist [facility] Magnesium 1.9 1.5 - 2.6 mg/dL 01/18/2025 9:53 AM EDT LABORATORY [facility] Blood Venous blood specimen / Unknown Venipuncture / Unknown 01/18/2025 9:15 AM EDT 01/18/2025 9:24 AM EDT us Brent Ng MD LAB BLOOD ORDERABLES Final Resul t LABORATORY [facility] [address] [place] [address] * (ABNORMAL) COMPREHENSIVE METABOLIC PANEL (01/18/2025 9:15 AM EDT) BUN 15 6 - 20 mg/dL 01/18/2025 9:53 AM EDT LABORATORY [facility] CREATININE 0.9 0.6 - 1.2 mg/dL 01/18/2025 9:53 AM EDT LABORATORY [facility] EGFR >90 >=60 mL/min 01/18/2025 9:53 AM EDT LABORATORY [facility] Comment:eGFR is calculated b ased on the CKD-EPI 2020 equation. SODIUM 122(L) 135 - 146 mmol/L 01/18/2025 9:53 AM EDT LAB[facility] POTASSIUM 3.7 3.5 - 5.1 mmol/L 01/18/2025 9:53 AM EDT LAB[facility]AT[facility] CHLORIDE 91(L) 98 - 107 mmol/L 01/18/2025 9:53 AM EDT LAB[facility]ORY [facility] CO2 23 22 - 32 mmol/L 01/18/2025 9:53 AM EDT LAB[facility]ATORY [facility] ANION GAP 8 7 - 15 mmol/L 01/18/2025 9:53 AM EDT LAB[facility] GLUCOSE 164(H) 70 - 120 mg/dL 01/18/2025 9:53 AM EDT LAB[facility]ATORY [facility] Albumin 2.2(L) 3.8 - 5.0 g/dL 01/18/2025 9:53 AM EDT LAB[facility]ORY [facility] AST 65(H) 10 - 50 U/L 01/18/2025 9:53 AM EDT LAB[facility]ORY [facility] Alkaline Phosphatase 187(H) 35 - 130 U/L 01/18/2025 9:53 AM EDT LAB[facility]ATORY [facility] Bilirubin, Total 1.8(H) <=1.2 mg/dL 01/18/2025 9:53 AM EDT LAB[facility]ORY [facility] CALCIUM 7.8(L) 8.4 - 10.2 mg/dL 01/18/2025 9:53 AM EDT LAB[facility]ORY [facility] Protein 4.9(L) 6.0 - 8.3 g/dL 01/18/2025 9:53 AM EDT LAB[facility]ATORY [facility] ALT 41 10 - 50 U/L 01/18/2025 9:53 AM EDT LAB[facility]ORY [facility] Blood Venous blood specimen / Unknown Venipuncture / Unknown 01/18/2025 9:15 AM EDT 01/18/2025 9:24 AM EDT us Brent Ng MD LAB BLOOD ORDERABLES Final Resul t LABORATORY [facility] [address] [place] [address] * (ABNORMAL) CBC (01/18/2025 9:15 AM EDT) WBC 5.81 4.00 - 10.80 K/uL 01/18/2025 9:36 AM EDT LAB[facility]ATORY [facility] RBC 2.40 4.50 - 5.25 M/uL 01/18/2025 9:36 AM EDT LAB[facility]ATORY [facility] HGB 8.0(L) 14.0 - 16.8 g/dL 01/18/2025 9:36 AM EDT LAB[facility]ATORY [facility] HCT 24.3(L) 40.0 - 48.4 % 01/18/2025 9:36 AM EDT LAB[facility]ATORY [facility] MCV 101.3 82.0 - 99.5 fL 01/18/2025 9:36 AM EDT LAB[facility]ATORY [facility] MCH 33.3 27.0 - 34.0 pg 01/18/2025 9:36 AM EDT LAB[facility]ATORY [facility] MCHC 32.9 32.0 - 36.0 g/dL 01/18/2025 9:36 AM EDT LAB[facility]ATORY [facility] RDW 20.7 11.5 - 15.5 % 01/18/2025 9:36 AM EDT LAB[facility]ATORY [facility] PLT 78(L) 140 - 400 K/uL 01/18/2025 9:36 AM EDT LAB[facility]ATORY [facility] MPV 10.0 6.6 - 11.1 fL 01/18/2025 9:36 AM EDT LABORATORY [facility] nRBCs 0 <=0 /100 WBCs 01/18/2025 9:36 AM EDT LABORATORY [facility] Blood Venous blood specimen / Unknown Venipuncture / Unknown 01/18/2025 9:15 AM EDT 01/18/2025 9:24 AM EDT Brent Ng MD LAB BLOOD ORDERABLES Final Resul t LABORATORY [facility] [address] [place] [address] * (ABNORMAL) GLUCOSE METER, POINT OF CARE (01/18/2025 7:23 AM EDT) [facility] Glucose - POCT 191(H) 70 - 120 mg/dL 01/18/2025 6:54 PM EDT [facility] Blood Whole blood specimen / Unknown 01/18/2025 7:23 AM EDT 01/18/2025 6:54 PM EDT us Sammy Martinez MD LAB POINT OF CARE TEST DOCKED DEVICE UNSOLICITED RESULTS Final Result Performing Organization Address City/[facility]/ZIP Co de Phone Number [facility] [address] [place] [address] * GLUCOSE METER, POINT OF CARE (01/17/2025 8:50 PM EDT) Glucose - POCT 118 70 - 120 mg/dL 01/17/2025 9:29 PM EDT [facility] [employer] [facility] Blood Whole blood specimen / Unknown 01/17/2025 8:50 PM EDT 01/17/2025 9:29 PM EDT Sammy Martinez MD LAB POINT OF CARE TEST DOCKED DEVICE UNSOLICITED RESULTS Final Result Performing Organization Address [facility]/ZIP Co de Phone Number [facility] [address] [place] [address] * (ABNORMAL) GLUCOSE METER, POINT OF CARE (01/17/2025 4:23 PM EDT) Glucose - POCT 136(H) 70 - 120 mg/dL 01/17/2025 7:11 PM EDT [facility] [employer] Blood Whole blood specimen / Unknown 01/17/2025 4:23 PM EDT 01/17/2025 7:11 PM EDT Sammy Martinez MD LAB POINT OF CARE TEST DOCKED DEVICE UNSOLICITED RESULTS Final Result [facility] [address] [place] [address] * AR ABDOM PARACENTESIS DX/THER W/IMAGING GUIDANCE (01/17/2025 2:24 PM EDT) Narrative Flaco Viveros MD - 01/17/2025 2:24 PM EDT River La MD 01/17/2025 2:31 PM Paracentesis Procedure Date/Time : 01/17/2025 2:24 PM Performed by: River La MD Authorized by: River La MD [place] Protocol: Verbal consent obtained?: Yes Written consent obtained?: Yes Consent given by: Patient Patient states understanding of procedure being performed: Yes Patient's understanding of procedure matches verbalized consent: Yes Procedure consent matches procedure scheduled: Yes Site marked: Yes Verify correct position: Yes Required items: Required blood products, implants, devices and special equipment available Patient identity confirmed: Verbally with patient and arm band Verbal confirmation: MRN, name and date of Other healthcare professional(s) verbalize(s) agreement with timeout: Yes Time out: Immediately prior to the procedure a time out was called A time out verifies correct patient, procedure, equipment, technical customer support specialist and site/side marked as required. Anticoagulation/Anti-platelet Therapy: Anticoagulation/Anti-platelet therapy: No Risks discussed: Bleeding, bowel perforation, infection and pain Indications: Initial or subsequent procedure: Subsequent Procedure purpose: Therapeutic Indications: abdominal discomfort secondary to ascites Anesthesia: Local anesthesia used?: Yes Anesthesia: Local infiltration Local anesthetic: Lidocaine 1% without epinephrine Anesthetic total (ml): 8 Sedation: Patient sedated: No Procedure details: Preparation: Patient was prepped and draped in usual sterile fashion Needle gauge: 18 Ultrasound guided: Yes Puncture site: Left lower quadrant Fluid removed (ml): 3700 Fluid appearance: Clear (Yellow) Dressinx4 sterile gauze and pressure dressing Patient tolerance: Patient tolerated the procedure well with no immediate complications Written and verbal instructions were provided to the patient: Yes Attestation: Attestation: Attending present for bob portions of procedure and immediately available and I personally performed the procedure myself Name of doctor present for entire procedure: Dr. Flaco Viveros Name of doctor present for the critical portions of this procedure: Dr. Flaco Viveros Paracentesis was performed without complications. 3700 cc of clear yellow fluid was obtained. US images were obtained and uploaded to the chart PACS (POCUS section). us River La MD PROCEDURE REPORT Final Result * POINT OF CARE US - GUIDED PARACENTESIS (01/17/2025 1:31 PM EDT) Anatomical Region Laterality Modality Abdomen, Body Radiographic Sherri ging 01/17/2025 1:31 PM EDT Narrative 01/17/2025 2:30 PM EDT Patient Name: SATISH SPENCER : 1965 (59y) Male Performing Provider: Flaco Viveros (digitally signed Jan 17, 2025 14:30 EDT) Attending: Flaco Viveros (digitally signed Jan 17, 2025 14:30 EDT) [Procedure] : Ultrasound guidance was used for paracentesis [Indications] : Ascites [Indications] : [Location] Specific site of the paracentesis: Left [Complications] : No complications [Complications] : [Interpretation] : Successful paracentesis [Other] : Procedure Note Flaco Viveros MD - 01/17/2025 Patient Name: SATISH SPENCER : 1965 (59y) Male Performing Provider: Flaco Viveros (digitally signed Jan 17, 2025 14:30EDT) Attending: Flaco Viveros (digitally signed Jan 17, 2025 14:30 EDT) [Procedure] : Ultrasound guidance was used for paracentesis [Indications] : Ascites [Indications] : [Location] Specific site of the paracentesis: Left [Complications] : No complications [Complications] : [Interpretation] : Successful paracentesis [Other] : us Flaco Viveros MD RAD ULTRASOUND Final Result * (ABNORMAL) GLUCOSE METER, POINT OF CARE (01/17/2025 11:36 AM EDT) [facility] Glucose - POCT 253(H) 70 - 120 mg/dL 01/17/2025 7:11 PM EDT [facility] [employer] Blood Whole blood specimen / Unknown 01/17/2025 11:36 AM EDT 01/17/2025 7:11 PM EDT us Sammy Martinez MD LAB POINT OF CARE TEST DOCKED DEVICE UNSOLICITED RESULTS Final Result [facility] [employer] [facility] [address] [place] [address] * (ABNORMAL) GLUCOSE METER, POINT OF CARE (01/17/2025 7:32 AM EDT) Glucose - POCT 163(H) 70 - 120 mg/dL 01/17/2025 7:10 PM EDT [facility] Blood Whole blood specimen / Unknown 01/17/2025 7:32 AM EDT 01/17/2025 7:10 PM EDT Sammy Martinez MD LAB POINT OF CARE TEST DOCKED DEVICE UNSOLICITED RESULTS Final Result [facility] [address] [place] [address] * (ABNORMAL) PT INR (01/17/2025 6:34 AM EDT) Prothrombin Time 21.7(H) 11.6 - 15.2 seconds 01/17/2025 7:39 AM EDT LABORATORY C INR 1.9(H) 0.8 - 1.2 01/17/2025 7:39 AM EDT LABORATORY [facility] Blood Venous blood specimen / Unknown Venipuncture / Unknown 01/17/2025 6:34 AM EDT 01/17/2025 7:08 AM EDT Narrative LABORATORY [facility] - 01/17/2025 7:39 AM EDT Warfarin Therapy INR: 2.0-3.0 conventional anticoagulation INR: 2.5-3.5 high intensity anticoagulation us Stephanie Brenner DO LAB BLOOD ORDERABLES Final Res ult LABORATORY [facility] [address] [place] [address] * PHOSPHORUS (01/17/2025 6:34 AM EDT) Phosphorus 2.6 2.5 - 4.8 mg/dL 01/17/2025 7:28 AM EDT LABORATORY [facility] Blood Venous blood specimen / Unknown Venipuncture / Unknown 01/17/2025 6:34 AM EDT 01/17/2025 7:06 AM EDT Brent Ng MD LAB BLOOD ORDERABLES Final Resul t Performing Organization Address City/[facility]/ZIP Co de Phone Number LABORATORY [facility] [address] [place] [address] * MAGNESIUM (01/17/2025 6:34 AM EDT) Magnesium 2.1 1.5 - 2.6 mg/dL 01/17/2025 7:28 AM EDT LABORATORY C Blood Venous blood specimen / Unknown Venipuncture / Unknown 01/17/2025 6:34 AM EDT 01/17/2025 7:06 AM EDT Brent Ng MD LAB BLOOD ORDERABLES Final Resul t Performing Organization Address [facility] Co de Phone Number LABORATORY [facility] [address] [place] [address] * (ABNORMAL) COMPREHENSIVE METABOLIC PANEL (01/17/2025 6:34 AM EDT) BUN 16 6 - 20 mg/dL 01/17/2025 7:28 AM EDT LABORATORY [facility] CREATININE 1.0 0.6 - 1.2 mg/dL 01/17/2025 7:28 AM EDT LABORATORY [facility] EGFR 88 >=60 mL/min 01/17/2025 7:28 AM EDT LABORATORY [facility] Comment:eGFR is calculated b ased on the CKD-EPI 2020 equation. SODIUM 125(L) 135 - 146 mmol/L 01/17/2025 7:28 AM EDT LABORATORY [facility] POTASSIUM 3.5 3.5 - 5.1 mmol/L 01/17/2025 7:28 AM EDT LAB[facility]ATORY [facility] CHLORIDE 94(L) 98 - 107 mmol/L 01/17/2025 7:28 AM EDT LAB[facility]ATORY [facility] CO2 24 22 - 32 mmol/L 01/17/2025 7:28 AM EDT LABORATORY [facility] ANION GAP 7 7 - 15 mmol/L 01/17/2025 7:28 AM EDT LAB[facility]ATORY [facility] GLUCOSE 131(H) 70 - 120 mg/dL 01/17/2025 7:28 AM EDT LABORATORY [facility] Albumin 2.2(L) 3.8 - 5.0 g/dL 01/17/2025 7:28 AM EDT LABORATORY [facility] AST 54(H) 10 - 50 U/L 01/17/2025 7:28 AM EDT LAB[facility]ATORY [facility] Alkaline Phosphatase 169(H) 35 - 130 U/L 01/17/2025 7:28 AM EDT LABORATORY [facility] Bilirubin, Total 2.1(H) <=1.2 mg/dL 01/17/2025 7:28 AM EDT LAB[facility]ORY [facility] CALCIUM 7.6(L) 8.4 - 10.2 mg/dL 01/17/2025 7:28 AM EDT LAB[facility]ATORY [facility] Protein 5.0(L) 6.0 - 8.3 g/dL 01/17/2025 7:28 AM EDT LABORATORY [facility] ALT 38 10 - 50 U/L 01/17/2025 7:28 AM EDT LAB[facility]ATORY [facility] Blood Venous blood specimen / Unknown Venipuncture / Unknown 01/17/2025 6:34 AM EDT 01/17/2025 7:06 AM EDT us Brent Ng MD LAB BLOOD ORDERABLES Final Resul t Performing Organization Address City/State/[facility] Co de Phone Number LABORATORY [facility] [address] [place] [address] * (ABNORMAL) CBC (01/17/2025 6:34 AM EDT) WBC 6.27 4.00 - 10.80 K/uL 01/17/2025 7:14 AM EDT LABORATORY [facility] RBC 2.25 4.50 - 5.25 M/uL 01/17/2025 7:14 AM EDT LABORATORY [facility] HGB 7.7(L) 14.0 - 16.8 g/dL 01/17/2025 7:14 AM EDT LABORATORY [facility] HCT 23.4(L) 40.0 - 48.4 % 01/17/2025 7:14 AM EDT LAB[facility]ATORY [facility] MCV 104.0 82.0 - 99.5 fL 01/17/2025 7:14 AM EDT LABORATORY [facility] MCH 34.2 27.0 - 34.0 pg 01/17/2025 7:14 AM EDT LABORATORY [facility] MCHC 32.9 32.0 - 36.0 g/dL 01/17/2025 7:14 AM EDT LABORATORY [facility] RDW 21.6 11.5 - 15.5 % 01/17/2025 7:14 AM EDT LABORATORY [facility] PLT 78(L) 140 - 400 K/uL 01/17/2025 7:14 AM EDT LABORATORY [facility] MPV 9.9 6.6 - 11.1 fL 01/17/2025 7:14 AM EDT LABORATORY [facility] nRBCs 0 <=0 /100 WBCs 01/17/2025 7:14 AM EDT LABORATORY [facility] Blood Venous blood specimen / Unknown Venipuncture / Unknown 01/17/2025 6:34 AM EDT 01/17/2025 7:06 AM EDT Brent Ng MD LAB BLOOD ORDERABLES Final Resul t LABORATORY [facility] [address] [place] [address] * (ABNORMAL) GLUCOSE METER, POINT OF CARE (01/16/2025 8:57 PM EDT) [facility] Glucose - POCT 231(H) 70 - 120 mg/dL 01/16/2025 9:12 PM EDT [facility] Blood Whole blood specimen / Unknown 01/16/2025 8:57 PM EDT 01/16/2025 9:12 PM EDT Sammy Martinez MD LAB POINT OF CARE TEST DOCKED DEVICE UNSOLICITED RESULTS Final Result [facility] [address] [place] [address] * (ABNORMAL) GLUCOSE METER, POINT OF CARE (01/16/2025 4:30 PM EDT) [facility] Glucose - POCT 213(H) 70 - 120 mg/dL 01/16/2025 4:38 PM EDT [facility] Blood Whole blood specimen / Unknown 01/16/2025 4:30 PM EDT 01/16/2025 4:38 PM EDT us Sammy Martinez MD LAB POINT OF CARE TEST DOCKED DEVICE UNSOLICITED RESULTS Final Result [facility] [address] [place] [address] * XR CHEST 1 VIEW (01/16/2025 11:38 AM EDT) Anatomical Region Laterality Modality Chest Computed Radiogr aphy 01/16/2025 11:5 8 AM EDT Impressions 01/16/2025 11:56 AM EDT IMPRESSION No visible pneumothorax. Nearly resolved left pleural effusion. Narrative 01/16/2025 11:56 AM EDT EXAM XR CHEST 1 VIEW-01/16/2025 11:38 am HISTORY small pneumothorax before chest tube removal. Monitor for any worsening after removal COMPARISON CT CHEST W CONTRAST, ACC: [id number], dated 2025-01-15 15:44:16; XR CHEST 1 VIEW, ACC: [id number], dated 2025-01-15 14:44:54 TECHNIQUE Frontal radiograph of the chest was obtained. FINDINGS LINES/DEVICES: None LUNGS/PLEURA: Improved mild left basilar atelectasis. Nearly resolved left pleural effusion. No visible pneumothorax. CARDIOVASCULAR/MEDIASTINUM: The cardiomediastinal silhouette is within normal limits. OTHER: The upper abdomen is unremarkable. Degenerative changes in the spine. Procedure Note Nick Kim MD - 01/16/2025 EXAM XR CHEST 1 VIEW-01/16/2025 11:38 am HISTORY small pneumothorax before chest tube removal. Monitor for any worseningafter removal COMPARISON CT CHEST W CONTRAST, ACC: [id number], dated 2025-01-15 15:44:16; XR CHEST 1 VIEW, ACC: [id number], dated 2025-01-15 14:44:54 TECHNIQUE Frontal radiograph of the chest was obtained. FINDINGS LINES/DEVICES: None LUNGS/PLEURA: Improved mild left basilar atelectasis. Nearly resolvedleft pleural effusion. No visible pneumothorax. CARDIOVASCULAR/MEDIASTINUM: The cardiomediastinal silhouette is withinnormal limits. OTHER: The upper abdomen is unremarkable. Degenerative changes in thespine. IMPRESSION IMPRESSION No visible pneumothorax. Nearly resolved left pleural effusion. Brent Ng MD RADIOLOGY ([facility]) Final Re sult * (ABNORMAL) GLUCOSE METER, POINT OF CARE (01/16/2025 11:31 AM EDT) Pathologist [facility] Glucose - POCT 221(H) 70 - 120 mg/dL 01/16/2025 12:07 PM EDT [facility] [employer] [facility] Blood Whole blood specimen / Unknown 01/16/2025 11:31 AM EDT 01/16/2025 12:07 PM EDT Sammy Martinez MD LAB POINT OF CARE TEST DOCKED DEVICE UNSOLICITED RESULTS Final Result [facility] [address] [place] [address] * ECHO, COMPLETE (2D), TRANS-THORACIC (01/16/2025 10:27 AM EDT) [facility] LEFT VENTRICULAR EJECTION FRACTION 60 % [facility] CARDIOLOGY 01/16/2025 8:51 AM EDT Stephanie Brenner DO ECHOCARDIOLOGY Final Result [facility] * (ABNORMAL) PT INR (01/16/2025 9:09 AM EDT) Pathologist [facility] Prothrombin Time 21.4(H) 11.6 - 15.2 seconds 01/16/2025 10:06 AM EDT LABORATORY [facility] INR 1.8(H) 0.8 - 1.2 01/16/2025 10:06 AM EDT [facility]ORY [facility] Blood Venous blood specimen / Unknown Venipuncture / Unknown 01/16/2025 9:09 AM EDT 01/16/2025 9:25 AM EDT Narrative LABORATORY [facility] - 01/16/2025 10:06 AM EDT Warfarin Therapy INR: 2.0-3.0 conventional anticoagulation INR: 2.5-3.5 high intensity anticoagulation us Stephanie Brenner DO LAB BLOOD ORDERABLES Final Res ult LABORATORY [facility] [address] [place] [address] * (ABNORMAL) GLUCOSE METER, POINT OF CARE (01/16/2025 8:15 AM EDT) Glucose - POCT 168(H) 70 - 120 mg/dL 01/16/2025 10:03 AM EDT [facility] Blood Whole blood specimen / Unknown 01/16/2025 8:15 AM EDT 01/16/2025 10:02 AM EDT Sammy Martinez MD LAB POINT OF CARE TEST DOCKED DEVICE UNSOLICITED RESULTS Final Result Performing Organization Address City/[facility]/ZIP Co de Phone Number [facility] [address] [place] [address] * PHOSPHORUS (01/16/2025 6:40 AM EDT) Phosphorus 2.6 2.5 - 4.8 mg/dL 01/16/2025 7:24 AM EDT LABORATORY [facility] Blood Venous blood specimen / Unknown Venipuncture / Unknown 01/16/2025 6:40 AM EDT 01/16/2025 6:58 AM EDT Brent Ng MD LAB BLOOD ORDERABLES Final Resul t LABORATORY [facility] [address] [place] [address] * MAGNESIUM (01/16/2025 6:40 AM EDT) Magnesium 2.1 1.5 - 2.6 mg/dL 01/16/2025 7:24 AM EDT LAB[facility]ORY [facility] Blood Venous blood specimen / Unknown Venipuncture / Unknown 01/16/2025 6:40 AM EDT 01/16/2025 6:58 AM EDT us Brent Ng MD LAB BLOOD ORDERABLES Final Resul t LABORATORY [facility] [address] [place] [address] * (ABNORMAL) COMPREHENSIVE METABOLIC PANEL (01/16/2025 6:40 AM EDT) BUN 17 6 - 20 mg/dL 01/16/2025 7:24 AM EDT LAB[facility] CREATININE 0.9 0.6 - 1.2 mg/dL 01/16/2025 7:24 AM EDT LAB[facility]ATORY [facility] EGFR >90 >=60 mL/min 01/16/2025 7:24 AM EDT LAB[facility]ATORY [facility] Comment:eGFR is calculated b ased on the CKD-EPI 2020 equation. SODIUM 126(L) 135 - 146 mmol/L 01/16/2025 7:24 AM EDT LAB[facility]ATORY [facility] POTASSIUM 3.9 3.5 - 5.1 mmol/L 01/16/2025 7:24 AM EDT LAB[facility] CHLORIDE 94(L) 98 - 107 mmol/L 01/16/2025 7:24 AM EDT LAB[facility] CO2 22 22 - 32 mmol/L 01/16/2025 7:24 AM EDT LAB[facility] ANION GAP 10 7 - 15 mmol/L 01/16/2025 7:24 AM EDT LAB[facility] GLUCOSE 202(H) 70 - 120 mg/dL 01/16/2025 7:24 AM EDT LAB[facility]ATORY [facility] Albumin 2.1(L) 3.8 - 5.0 g/dL 01/16/2025 7:24 AM EDT LAB[facility]ORY [facility] AST 49 10 - 50 U/L 01/16/2025 7:24 AM EDT LAB[facility]ORY [facility] Alkaline Phosphatase 154(H) 35 - 130 U/L 01/16/2025 7:24 AM EDT LAB[facility]ORY [facility] Bilirubin, Total 2.5(H) <=1.2 mg/dL 01/16/2025 7:24 AM EDT LAB[facility]ORY [facility] CALCIUM 7.9(L) 8.4 - 10.2 mg/dL 01/16/2025 7:24 AM EDT LAB[facility] Protein 4.9(L) 6.0 - 8.3 g/dL 01/16/2025 7:24 AM EDT LAB[facility] ALT 36 10 - 50 U/L 01/16/2025 7:24 AM EDT [facility] Blood Venous blood specimen / Unknown Venipuncture / Unknown 01/16/2025 6:40 AM EDT 01/16/2025 6:58 AM EDT us Brent Ng MD LAB BLOOD ORDERABLES Final Resul t LAB[facility]ATORY [facility] [address] [place] [address] * (ABNORMAL) CBC (01/16/2025 6:40 AM EDT) WBC 7.39 4.00 - 10.80 K/uL 01/16/2025 7:18 AM EDT LAB[facility]ATORY [facility] RBC 2.34 4.50 - 5.25 M/uL 01/16/2025 7:18 AM EDT LAB[facility]ORY [facility] HGB 8.1(L) 14.0 - 16.8 g/dL 01/16/2025 7:18 AM EDT LAB[facility]ORY [facility] HCT 24.2(L) 40.0 - 48.4 % 01/16/2025 7:18 AM EDT LAB[facility] MCV 103.4 82.0 - 99.5 fL 01/16/2025 7:18 AM EDT LAB[facility] MCH 34.6 27.0 - 34.0 pg 01/16/2025 7:18 AM EDT LAB[facility] MCHC 33.5 32.0 - 36.0 g/dL 01/16/2025 7:18 AM EDT LAB[facility]ORY [facility] RDW 21.6 11.5 - 15.5 % 01/16/2025 7:18 AM EDT LAB[facility]ORY [facility] PLT 80(L) 140 - 400 K/uL 01/16/2025 7:18 AM EDT LAB[facility]ORY [facility] MPV 10.1 6.6 - 11.1 fL 01/16/2025 7:18 AM EDT LABORATORY [facility] nRBCs 0 <=0 /100 WBCs 01/16/2025 7:18 AM EDT LABORATORY [facility] Blood Venous blood specimen / Unknown Venipuncture / Unknown 01/16/2025 6:40 AM EDT 01/16/2025 7:08 AM EDT us Brent Ng MD LAB BLOOD ORDERABLES Final Resul t LABORATORY [facility] [address] [place] [address] * (ABNORMAL) GLUCOSE METER, POINT OF CARE (01/15/2025 9:11 PM EDT) Glucose - POCT 223(H) 70 - 120 mg/dL 01/15/2025 9:30 PM EDT [facility] Blood Whole blood specimen / Unknown 01/15/2025 9:11 PM EDT 01/15/2025 9:30 PM EDT us Sammy Martinez MD LAB POINT OF CARE TEST DOCKED DEVICE UNSOLICITED RESULTS Final Result Performing Organization Address [facility]/ZIP Co de Phone Number [facility] [address] [place] [address] * (ABNORMAL) GLUCOSE METER, POINT OF CARE (01/15/2025 5:38 PM EDT) Glucose - POCT 250(H) 70 - 120 mg/dL 01/15/2025 5:42 PM EDT [email or web address] Blood Whole blood specimen / Unknown 01/15/2025 5:38 PM EDT 01/15/2025 5:42 PM EDT us Sammy Martinez MD LAB POINT OF CARE TEST DOCKED DEVICE UNSOLICITED RESULTS Final Result Performing Organization Address City/[facility]/ZIP Co de Phone Number [facility] [address] [place] [facility] [address] * CT CHEST W CONTRAST (01/15/2025 4:03 PM EDT) Anatomical Region Laterality Modality Chest, Body, Cardio Computed Davion ography 01/15/2025 4:24 PM EDT Impressions 01/15/2025 4:21 PM EDT IMPRESSION 1. Moderate left pleural effusion with pigtail catheter terminating within the pleural space along the left anterior lung. Small left pneumothorax. 2. Partially imaged large volume ascites, increased from 12/05/2024. 3. Cirrhosis with portal hypertension. Stable posterior right hepatic lobe hypodensity with adjacent coarse calcifications. This exam was submitted to the radiology sales office coordinator worklist and the ordering provider will be notified that the final report is available in EPIC. Narrative 01/15/2025 4:21 PM EDT EXAM EXAM: CT CHEST W CONTRAST DATE TIME: 01/15/2025 - 01/15/2025 4:03 pm HISTORY 59 y/o M L pleural effusion s/p chest tube placement TECHNIQUE CT chest was performed with IV contrast COMPARISON Chest radiograph dated 01/15/2025 FINDINGS LUNGS AND LARGE AIRWAYS/PLEURA: Moderate left pleural effusion with pigtail catheter terminating within the pleural space along the left anterior lung. Small left pneumothorax. VESSELS: Normal caliber thoracic aorta and main pulmonary artery. Atherosclerotic changes of the aorta. Coronary artery calcifications. HEART: Heart is normal in size. No pericardial effusion. MEDIASTINUM AND JIMENA: Small mediastinal lymph nodes, likely reactive. CHEST WALL AND LOWER NECK: Within normal limits. VISUALIZED UPPER ABDOMEN: Cirrhosis with portal hypertension. Stable posterior right hepatic lobe hypodensity with adjacent coarse calcifications. Splenomegaly. Partially imaged large volume ascites, increased from 12/05/2024. Subcutaneous edema along the posteriolateral abdominal wall Liver morphology. BONES: Degenerative changes of the spine. Procedure Note Dorinda Vu MD - 01/15/2025 EXAM EXAM: CT CHEST W CONTRAST DATE TIME: 01/15/2025 - 01/15/2025 4:03 pm HISTORY 59 y/o M L pleural effusion s/p chest tube placement TECHNIQUE CT chest was performed with IV contrast COMPARISON Chest radiograph dated 01/15/2025 FINDINGS LUNGS AND LARGE AIRWAYS/PLEURA: Moderate left pleural effusion withpigtail catheter terminating within the pleural space along the leftanterior lung. Small left pneumothorax. VESSELS: Normal caliber thoracic aorta and main pulmonary artery.Atherosclerotic changes of the aorta. Coronary artery calcifications. HEART: Heart is normal in size. No pericardial effusion. MEDIASTINUM AND JIMENA: Small mediastinal lymph nodes, likely reactive. CHEST WALL AND LOWER NECK: Within normal limits. VISUALIZED UPPER ABDOMEN: Cirrhosis with portal hypertension. Stableposterior right hepatic lobe hypodensity with adjacent coarsecalcifications. Splenomegaly. Partially imaged large volume ascites,increased from 12/05/2024. Subcutaneous edema along the posteriolateralabdominal wall Liver morphology. BONES: Degenerative changes of the spine. IMPRESSION IMPRESSION 1. Moderate left pleural effusion with pigtail catheter terminating withinthe pleural space along the left anterior lung. Small leftpneumothorax. 2. Partially imaged large volume ascites, increased from 12/05/2024. 3. Cirrhosis with portal hypertension. Stable posterior right hepaticlobe hypodensity with adjacent coarse calcifications. This exam was submitted to the radiology sales office coordinator worklist and theordering provider will be notified that the final report is available inEPIC. Gaetano Khan MD RAD CT Final Result * XR CHEST 1 VIEW (01/15/2025 2:51 PM EDT) Anatomical Region Laterality Modality Chest Computed Radiogr aphy 01/15/2025 3:04 PM EDT Impressions 01/15/2025 3:01 PM EDT IMPRESSION Left basilar chest tube and small left pleural effusion. Hazy left lung opacity may represent atelectasis or layering pleural effusion. Narrative 01/15/2025 3:01 PM EDT EXAM XR CHEST 1 VIEW - 01/15/2025 2:51 pm HISTORY Evaluate left chest tube and effusion TECHNIQUE Frontal radiograph of the chest. COMPARISON None. FINDINGS Low lung volumes. Peripheral left basilar chest tube. Small left pleural effusion. Hazy left lung opacity. Clear right lung. No pneumothorax. Unremarkable cardiomediastinal silhouette. Degenerative changes. Procedure Note Xavier Rodriguez MD - 01/15/2025 EXAM XR CHEST 1 VIEW - 01/15/2025 2:51 pm HISTORY Evaluate left chest tube and effusion TECHNIQUE Frontal radiograph of the chest. COMPARISON None. FINDINGS Low lung volumes. Peripheral left basilar chest tube. Small left pleuraleffusion. Hazy left lung opacity. Clear right lung. No pneumothorax.Unremarkable cardiomediastinal silhouette. Degenerative changes. IMPRESSION IMPRESSION Left basilar chest tube and small left pleural effusion. Hazy left lung opacity may represent atelectasis or layering pleuraleffusion. Denise BALDERRAMA RADIOLOGY (RAD GENERAL) Fi nal Result * (ABNORMAL) GLUCOSE METER, POINT OF CARE (01/15/2025 11:38 AM EDT) [facility] Signature Glucose - POCT 157(H) 70 - 120 mg/dL 01/15/2025 7:09 PM EDT [facility] Blood Whole blood specimen / Unknown 01/15/2025 11:38 AM EDT 01/15/2025 7:09 PM EDT Sammy Martinez MD LAB POINT OF CARE TEST DOCKED DEVICE UNSOLICITED RESULTS Final Result [facility] [address] [place] [address] * (ABNORMAL) GLUCOSE METER, POINT OF CARE (01/15/2025 7:15 AM EDT) [facility] Signature Glucose - POCT 200(H) 70 - 120 mg/dL 01/15/2025 8:24 AM EDT [facility] Blood Whole blood specimen / Unknown 01/15/2025 7:15 AM EDT 01/15/2025 8:24 AM EDT Sammy Martinez MD LAB POINT OF CARE TEST DOCKED DEVICE UNSOLICITED RESULTS Final Result [facility] [address] [place] [address] * (ABNORMAL) LD (01/15/2025 6:14 AM EDT) LD 253(H) <=250 U/L 01/15/2025 7:27 AM EDT LABORATORY [facility] Comment:Results may be false ly elevated due to hemolysis. Blood Venous blood specimen / Unknown Venipuncture / Unknown 01/15/2025 6:14 AM EDT 01/15/2025 6:24 AM EDT Gaetano Khan MD LAB BLOOD ORDERABLES Final Resul t Performing Organization Address [facility] de Phone Number LABORATORY [address] [address] * (ABNORMAL) PT INR (01/15/2025 6:14 AM EDT) [facility] Prothrombin Time 22.8(H) 11.6 - 15.2 seconds 01/15/2025 6:58 AM EDT LABORATORY [facility] INR 2.0(H) 0.8 - 1.2 01/15/2025 6:58 AM EDT LABORATORY [facility] Blood Venous blood specimen / Unknown Venipuncture / Unknown 01/15/2025 6:14 AM EDT 01/15/2025 6:24 AM EDT Narrative LABORATORY [facility] - 01/15/2025 6:58 AM EDT Warfarin Therapy INR: 2.0-3.0 conventional anticoagulation INR: 2.5-3.5 high intensity anticoagulation Gume Oleary MD LAB BLOOD ORDERABLES Final Result Performing Organization Address [facility] de Phone Number LABORATORY [address] [address] * (ABNORMAL) COMPREHENSIVE METABOLIC PANEL (01/15/2025 6:14 AM EDT) [facility] BUN 19 6 - 20 mg/dL 01/15/2025 7:30 AM EDT LABORATORY [facility] CREATININE 0.9 0.6 - 1.2 mg/dL 01/15/2025 7:30 AM EDT LABORATORY [facility] EGFR >90 >=60 mL/min 01/15/2025 7:30 AM EDT LAB[facility]ATORY [facility] Comment:eGFR is calculated b ased on the CKD-EPI 2020 equation. SODIUM 122(L) 135 - 146 mmol/L 01/15/2025 7:30 AM EDT LAB[facility]ATORY [facility] POTASSIUM 3.8 3.5 - 5.1 mmol/L 01/15/2025 7:30 AM EDT LAB[facility] CHLORIDE 90(L) 98 - 107 mmol/L 01/15/2025 7:30 AM EDT LAB[facility]ORY [facility] CO2 20(L) 22 - 32 mmol/L 01/15/2025 7:30 AM EDT LAB[facility]ORY [facility] ANION GAP 12 7 - 15 mmol/L 01/15/2025 7:30 AM EDT LAB[facility] GLUCOSE 190(H) 70 - 120 mg/dL 01/15/2025 7:30 AM EDT LAB[facility]ORY [facility] Albumin 2.2(L) 3.8 - 5.0 g/dL 01/15/2025 7:30 AM EDT LAB[facility]ORY [facility] AST 53(H) 10 - 50 U/L 01/15/2025 7:30 AM EDT LAB[facility] Alkaline Phosphatase 151(H) 35 - 130 U/L 01/15/2025 7:30 AM EDT LAB[facility] Bilirubin, Total 3.0(H) <=1.2 mg/dL 01/15/2025 7:30 AM EDT LAB[facility]ORY [facility] CALCIUM 8.0(L) 8.4 - 10.2 mg/dL 01/15/2025 7:30 AM EDT LAB[facility]ORY [facility] Protein 5.2(L) 6.0 - 8.3 g/dL 01/15/2025 7:30 AM EDT LAB[facility]ORY [facility] ALT 37 10 - 50 U/L 01/15/2025 7:30 AM EDT LAB[facility]ATORY [facility] Blood Venous blood specimen / Unknown Venipuncture / Unknown 01/15/2025 6:14 AM EDT 01/15/2025 6:24 AM EDT us Gume Oleary MD LAB BLOOD ORDERABLES Final Result LABORATORY [facility] [address] [place] [address] * (ABNORMAL) CBC (01/15/2025 6:14 AM EDT) WBC 6.84 4.00 - 10.80 K/uL 01/15/2025 6:46 AM EDT LAB[facility]ATORY [facility] RBC 2.39 4.50 - 5.25 M/uL 01/15/2025 6:46 AM EDT LAB[facility]ORY [facility] HGB 8.1(L) 14.0 - 16.8 g/dL 01/15/2025 6:46 AM EDT LAB[facility]ATORY [facility] HCT 24.6(L) 40.0 - 48.4 % 01/15/2025 6:46 AM EDT LAB[facility]ATORY [facility] MCV 102.9 82.0 - 99.5 fL 01/15/2025 6:46 AM EDT LAB[facility]ATORY [facility] MCH 33.9 27.0 - 34.0 pg 01/15/2025 6:46 AM EDT LABORATORY [facility] MCHC 32.9 32.0 - 36.0 g/dL 01/15/2025 6:46 AM EDT LABORATORY [facility] RDW 21.8 11.5 - 15.5 % 01/15/2025 6:46 AM EDT LABORATORY GM PLT 80(L) 140 - 400 K/uL 01/15/2025 6:46 AM EDT LABORATORY [facility] MPV 10.7 6.6 - 11.1 fL 01/15/2025 6:46 AM EDT LABORATORY [facility] nRBCs 0 <=0 /100 WBCs 01/15/2025 6:46 AM EDT LABORATORY [facility] Blood Venous blood specimen / Unknown Venipuncture / Unknown 01/15/2025 6:14 AM EDT 01/15/2025 6:24 AM EDT us Gume Oleary MD LAB BLOOD ORDERABLES Final Result LABORATORY [facility] [address] [place] [address] * URINALYSIS, REFLEX TO MICROSCOPIC (01/15/2025 12:09 AM EDT) Color, Urine Yellow Colorless, Light Yellow, Yellow, Dark Yellow 01/15/2025 12:30 AM EDT LABORATORY [facility] Clarity, Urine Clear Clear 01/15/2025 12:30 AM EDT LABORATORY C Glucose, Urine Negative Negative mg/dL 01/15/2025 12:30 AM EDT LABORATORY C Bilirubin, Urine Negative Negative 01/15/2025 12:30 AM EDT LABORATORY C Ketone, Urine Negative Negative mg/dL 01/15/2025 12:30 AM EDT LABORATORY C Specific [place], Urine 1.015 1.003 - 1.030 01/15/2025 12:30 AM EDT LABORATORY C Blood, Urine Negative Negative 01/15/2025 12:30 AM EDT LABORATORY C pH, Urine 5.5 5.0 - 7.5 Units 01/15/2025 12:30 AM EDT LABORATORY C Protein, Urine Negative Negative mg/dL 01/15/2025 12:30 AM EDT LABORATORY [facility] Urobilinogen, Urine Normal Normal mg/dL 01/15/2025 12:30 AM EDT LABORATORY [facility] Nitrite, Urine Negative Negative 01/15/2025 12:30 AM EDT LABORATORY C Esterase, Urine Negative Negative 12:30 AM EDT LABORATORY C Comment, Urine 01/15/2025 12:30 AM EDT LABORATORY [facility] Comment:Screen negative - Mi croscopic not performed. Urine Non-blood Collection / Unknown 01/15/2025 12:09 AM EDT 01/15/2025 12:15 AM EDT Gume Oleary MD LAB URINE ORDERABLES Final Result Performing Organization Address City/State/[facility] Co de Phone Number LABORATORY [facility] [address] [place] [address] * (ABNORMAL) GLUCOSE METER, POINT OF CARE (01/14/2025 11:27 PM EDT) [facility] Glucose - POCT 167(H) 70 - 120 mg/dL 01/14/2025 11:39 PM EDT [facility] Blood Whole blood specimen / Unknown 01/14/2025 11:27 PM EDT 01/14/2025 11:39 PM EDT us Stanford Heath DO LAB POINT OF CARE TE ST DOCKED DEVICE UNSOLICITED RESULTS Final Result [facility] [address] [place] [address] * TYPE AND SCREEN (01/14/2025 10:24 PM EDT) ABO A 01/14/2025 11:11 PM EDT LABORATORY [facility] BLOOD BANK Rh Positive 01/14/2025 11:11 PM EDT LABORATORY [facility] BLOOD BANK Red Blood Cell Antibody Screen Negative 01/14/2025 11:11 PM EDT LABORATORY [facility] BLOOD BANK Specimen Expiration Date 01/17/2025 23:59 01/14/2025 11:11 PM EDT LABORATORY [facility] BLOOD BANK Blood Venous blood specimen / Unknown Venipuncture / Unknown 01/14/2025 10:24 PM EDT 01/14/2025 10:32 PM EDT Gume Oleary MD LAB BLOOD BANK TEST O RDERABLES Final Result Performing Organization Address City/[facility] Co de Phone Number LABORATORY [facility] BLOOD BANK [address] [place] [address] * (ABNORMAL) PT INR (01/14/2025 10:24 PM EDT) Prothrombin Time 22.9(H) 11.6 - 15.2 seconds 01/14/2025 11:19 PM EDT LABORATORY [facility] INR 2.0(H) 0.8 - 1.2 01/14/2025 11:19 PM EDT LABORATORY [facility] Blood Venous blood specimen / Unknown Venipuncture / Unknown 01/14/2025 10:24 PM EDT 01/14/2025 10:32 PM EDT Narrative LABORATORY [facility] - 01/14/2025 11:19 PM EDT Warfarin Therapy INR: 2.0-3.0 conventional anticoagulation INR: 2.5-3.5 high intensity anticoagulation us Gume Oleary MD LAB BLOOD ORDERABLES Final Result Performing Organization Address City/[facility]/ZIP Co de Phone Number LABORATORY [facility] [address] [place] [address] * MAGNESIUM (01/14/2025 10:24 PM EDT) [facility] Magnesium 2.3 1.5 - 2.6 mg/dL 01/14/2025 11:15 PM EDT LABORATORY [facility] Blood Venous blood specimen / Unknown Venipuncture / Unknown 01/14/2025 10:24 PM EDT 01/14/2025 10:32 PM EDT Gume Oleary MD LAB BLOOD ORDERABLES Final Result Performing Organization Address [facility] Co de Phone Number LABORATORY [facility] [address] [place] [address] * (ABNORMAL) HEPATIC FUNCTION PANEL (01/14/2025 10:24 PM EDT) [facility] Albumin 2.5(L) 3.8 - 5.0 g/dL 01/14/2025 11:15 PM EDT LABORATORY [facility] AST 51(H) 10 - 50 U/L 01/14/2025 11:15 PM EDT LABORATORY [facility] Alkaline Phosphatase 148(H) 35 - 130 U/L 01/14/2025 11:15 PM EDT LABORATORY C ALT 38 10 - 50 U/L 01/14/2025 11:15 PM EDT LAB[facility]ATORY [facility] Bilirubin, Total 2.8(H) <=1.2 mg/dL 01/14/2025 11:15 PM EDT LABORATORY [facility] Bilirubin, Direct 1.2(H) 0.0 - 0.3 mg/dL 01/14/2025 11:15 PM EDT LAB[facility]ATORY [facility] Protein 5.1(L) 6.0 - 8.3 g/dL 01/14/2025 11:15 PM EDT LABORATORY [facility] Blood Venous blood specimen / Unknown Venipuncture / Unknown 01/14/2025 10:24 PM EDT 01/14/2025 10:32 PM EDT us Gume Oleary MD LAB BLOOD ORDERABLES Final Result LAB[facility]ATORY [facility] [address] [place] [address] * (ABNORMAL) CBC (01/14/2025 10:24 PM EDT) [facility] WBC 9.74 4.00 - 10.80 K/uL 01/14/2025 11:06 PM EDT LABORATORY [facility] RBC 2.34 4.50 - 5.25 M/uL 01/14/2025 11:06 PM EDT LABORATORY [facility] HGB 8.0(L) 14.0 - 16.8 g/dL 01/14/2025 11:06 PM EDT LABORATORY [facility] HCT 24.1(L) 40.0 - 48.4 % 01/14/2025 11:06 PM EDT LABORATORY [facility] MCV 103.0 82.0 - 99.5 fL 01/14/2025 11:06 PM EDT LABORATORY [facility] MCH 34.2 27.0 - 34.0 pg 01/14/2025 11:06 PM EDT LABORATORY [facility] MCHC 33.2 32.0 - 36.0 g/dL 01/14/2025 11:06 PM EDT LABORATORY [facility] RDW 22.0 11.5 - 15.5 % 01/14/2025 11:06 PM EDT LABORATORY [facility] PLT 81(L) 140 - 400 K/uL 01/14/2025 11:06 PM EDT LABORATORY [facility] MPV 10.1 6.6 - 11.1 fL 01/14/2025 11:06 PM EDT LABORATORY [facility] nRBCs 0 <=0 /100 WBCs 01/14/2025 11:06 PM EDT LAB[facility]ATORY [facility] Blood Venous blood specimen / Unknown Venipuncture / Unknown 01/14/2025 10:24 PM EDT 01/14/2025 10:32 PM EDT Gume Oleary MD LAB BLOOD ORDERABLES Final Result LABORATORY [facility] [address] [place] [address] * (ABNORMAL) BASIC METABOLIC PANEL (01/14/2025 10:24 PM EDT) BUN 20 6 - 20 mg/dL 01/14/2025 11:15 PM EDT LABORATORY [facility] CREATININE 1.0 0.6 - 1.2 mg/dL 01/14/2025 11:15 PM EDT LABORATORY [facility] EGFR 85 >=60 mL/min 01/14/2025 11:15 PM EDT LABORATORY [facility] Comment:eGFR is calculated b ased on the CKD-EPI 2020 equation. SODIUM 125(L) 135 - 146 mmol/L 01/14/2025 11:15 PM EDT LABORAT[facility] POTASSIUM 4.1 3.5 - 5.1 mmol/L 01/14/2025 11:15 PM EDT LABORATORY C CHLORIDE 93(L) 98 - 107 mmol/L 01/14/2025 11:15 PM EDT [facility] CO2 23 22 - 32 mmol/L 01/14/2025 11:15 PM EDT LABORATORY C ANION GAP 9 7 - 15 mmol/L 01/14/2025 11:15 PM EDT LABORATORY C GLUCOSE 167(H) 70 - 120 mg/dL 01/14/2025 11:15 PM EDT LAB[facility] CALCIUM 7.9(L) 8.4 - 10.2 mg/dL 01/14/2025 11:15 PM EDT LAB[facility]ATORY [facility] Blood Venous blood specimen / Unknown Venipuncture / Unknown 01/14/2025 10:24 PM EDT 01/14/2025 10:32 PM EDT Gume Oleary MD LAB BLOOD ORDERABLES Final Result LAB[facility]ATORY [facility] [address] [place] [address] documented in this encounter Visit Diagnoses Diagnosis Decompensated hepatic cirrhosis (HCC)- Primary 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 Chest pain Chest pain, unspecified Valvular insufficiency Endocarditis, valve unspecified, unspecified cause Encounter for fitting and adjustment of non-vascular catheter Pleural effusion, not elsewhere classified Other nonspecific abnormal finding of lung field Pneumothorax, unspecified Portal hypertension (HCC) Portal hypertension Other specified diseases of liver Other ascites Abnormal findings on diagnostic imaging of other specified body structures Other specified postprocedural states Nonrheumatic aortic (valve) stenosis 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 Cirrhosis of liver with ascites, unspecified hepatic cirrhosis type (HCC) Nonalcoholic steatohepatitis (GONZALES) [K75.81] Other chronic nonalcoholic liver disease S/P TIPS (transjugular intrahepatic portosystemic shunt) Other postprocedural status Hepatocellular carcinoma (HCC) Malignant neoplasm of liver, primary Umbilical hernia Umbilical hernia without mention of obstruction or gangrene Type 2 diabetes mellitus with hemoglobin A1c goal of less than 7.0% (HCC) Chronic hyponatremia Hyposmolality and/or hyponatremia Ascites Other ascites Thrombocytopenia (HCC) Thrombocytopenia, unspecified Recurrent pleural effusion on left Unspecified pleural effusion Pre-transplant evaluation for chronic liver disease Other specified pre-operative examination Nonrheumatic aortic valve stenosis Aortic valve disorders S/P TIPS (transjugular intrahepatic portosystemic shunt) Other postprocedural status documented in this encounter Administered Medications Inactive Administered Medications - up to 3 most recent administrations Medication Order MAR Action Action Date Dose Rate Site Acetaminophen (Tylenol) tab 325 mg 325 mg, Oral, ONCE, On Mon01/17/25 at 1630, For 1 dose, Maximum of 4 grams (4000 mg) per day. Given 01/17/2025 4:15 PM EDT 325 mg Acetaminophen (Tylenol) tab 650 mg 650 mg, Oral, Q6H PRN Pain, Mild, Pain, Moderate, Pain, Severe, Starting on Mon01/20/25 at 1130, Until Mon01/27/25 at 1309, Maximum of 1 grams (1000 mg) per day. Given 01/21/2025 4:38 AM EDT 650 mg Given 01/20/2025 11:57 AM EDT 650 mg Acetaminophen (Tylenol) tab 650 mg 650 mg, Oral, Q6H PRN Pain, Mild, Fever >38C(100.5F), Starting on Mon01/27/25 at 1309, Until Mon01/29/25 at 1850, Maximum of 1 grams (1000 mg) per day. albumin, human 25 % inj 25 g Intravenous, Please scan sweatband drummer "square" 2D barcode to record Lot/ Expiration, Q8H, 3 doses, First dose on Mon01/19/25 at 2200, Last dose on Mon01/20/25 at 1400 New Bag 01/20/2025 2:09 PM EDT 25 g 100 mL/hr New Bag 01/20/2025 5:59 AM EDT 25 g 100 mL/hr New Bag 01/19/2025 9:21 PM EDT 25 g 75 mL/hr Allopurinol (Zyloprim) tab 300 mg 300 mg, Oral, Daily(AM), First dose on Mon01/15/25 at 0900, Until Discontinued Given 01/29/2025 8:52 AM EDT 300 mg Given 01/28/2025 8:50 AM EDT 300 mg Given 01/27/2025 8:38 AM EDT 300 mg atorvaSTATin (Lipitor) tab 20 mg 20 mg, Oral, Daily(AM), First dose on Mon01/15/25 at 0900, Until Discontinued Given 01/29/2025 8:52 AM EDT 20 mg Given 01/28/2025 8:50 AM EDT 20 mg Given 01/27/2025 8:38 AM EDT 20 mg buffered lidocaine 1 % inj Intradermal, ONCE PRN INTRA PROCEDURE, Starting on Mon01/27/25 at 1042, Until Mon01/27/25 at 1042, Intra-Op Given 01/27/2025 10:42 AM EDT 5 mL Abdomen Right Upper buffered lidocaine 1 % inj Intradermal, ONCE PRN INTRA PROCEDURE, Starting on Mon01/27/25 at 1044, Until Mon01/27/25 at 1044, Intra-Op Given 01/27/2025 10:44 AM EDT 2 mL Other-Specify cefTRIAXone in dextrose (Rocephin) IVPB 2 g IV Piggyback, 2 g, Q24H, First dose (after last modification) on Mon01/15/25 at 1100, Until Discontinued, Administer over 30 Minutes New Bag 01/15/2025 12:23 PM EDT 2 g 100 mL/hr cefTRIAXone in dextrose (Rocephin) IVPB 2 g IV Piggyback, 2 g, Q24H, 4 doses, First dose (after last modification) on [facility] 01/16/25 at 1100, Last dose on Mon01/19/25 at 1100, Administer over 30 Minutes New Bag 01/19/2025 11:29 AM EDT 2 g 100 mL/hr New Bag 01/18/2025 2:23 PM EDT 2 g 100 mL/hr New Bag 01/17/2025 12:15 PM EDT 2 g 100 mL/hr ciprofloxacin (Cipro) tab 500 mg 500 mg, Oral, Daily(AM), First dose on Mon01/20/25 at 0900, Until Discontinued, Hold antacids and iron for 3-4 hours before and after administration. Given 01/29/2025 8:52 AM EDT 500 mg Given 01/28/2025 8:50 AM EDT 500 mg Given 01/27/2025 8:38 AM EDT 500 mg dextrose 50% inj 25 mL 25 mL, IV Push, PRN Hypoglycemia, Other, For blood glucose 54 - 69 mg/dL or 70 - 100 mg/dL with symptoms AND patient is unresponsive, NPO, OR unable to swallow, Starting on Mon01/14/25 at 2306, Until Mon01/29/25 at 1851, Administer IV. Recheck blood glucose after 15 minutes. Notify provider. dextrose 50% inj 50 mL 50 mL, IV Push, PRN Hypoglycemia, Other, For blood glucose below 54 mg/dL AND patient unresponsive, NPO, OR unable to swallow, Starting on Mon01/14/25 at 2306, Until Mon01/29/25 at 1851, Administer IV. Recheck blood glucose in 15 minutes. Notify provider. Enoxaparin (Lovenox) inj 40 mg 40 mg, Subcutaneous, Daily(AM), First dose on Mon01/15/25 at 0900, Until Discontinued, If patient is on warfarin, inform provider if daily INR value is 2 or greater! Given 01/20/2025 9:51 AM EDT 40 mg Abdom en Left Upper Given 01/19/2025 9:05 AM EDT 40 mg Ab domen Right Upper Given 01/18/2025 8:48 AM EDT 40 mg Ab domen Left Lower Enoxaparin (Lovenox) inj 40 mg 40 mg, Subcutaneous, Daily(AM), First dose on [place] 01/23/25 at 0900, Until Discontinued, If patient is on warfarin, inform provider if daily INR value is 2 or greater! Given 01/23/2025 8:11 AM EDT 40 mg Abdom en Left Lower Enoxaparin (Lovenox) inj 40 mg 40 mg, Subcutaneous, Daily(AM), First dose on Mon01/24/25 at 1030, Until Discontinued, If patient is on warfarin, inform provider if daily INR value is 2 or greater! Given 01/26/2025 10:10 AM EDT 40 mg Arm Left Upper Given 01/25/2025 9:12 AM EDT 40 mg Ab domen Right Upper Given 01/24/2025 12:17 PM EDT 40 mg A bdomen Left Lower Enoxaparin (Lovenox) inj 40 mg 40 mg, Subcutaneous, Daily(AM), First dose on Mon01/28/25 at 0900, Until Discontinued, If patient is on warfarin, inform provider if daily INR value is 2 or greater! Given 01/29/2025 8:52 AM EDT 40 mg Abdom en Left Upper Given 01/28/2025 8:50 AM EDT 40 mg Ab domen Right Upper glucagon (Glucagen) inj 1 mg 1 mg, Intramuscular, PRN Hypoglycemia, Other, If patient is unresponsive, or NPO and has no IV access, Starting on Mon01/14/25 at 2306, Until Mon01/29/25 at 1851, NPO and no IV access with either [...] patient alert WITH difficulty chewing/swallowing, Starting on Mon01/14/25 at 2306, Until Mon01/29/25 at 1851, Administer gel. Recheck blood glucose after 15 minutes. Notify provider. 37.5 gram tube = 15 grams glucose = 1 each Glucose (Glutose 15) 40 % gel 30 g of glucose 30 g of glucose, Oral, PRN Hypoglycemia (low sugar), Other, For blood glucose below 54 mg/dL AND patient alert WITH difficulty chewing/swallowing, Starting on Mon01/14/25 at 2306, Until Mon01/29/25 at 1851, Administer gel. Recheck blood glucose after 15 minutes. Notify provider. 37.5 gram tube = 15 grams glucose = 1 each glucose chew tab 16 g 16 g, Oral, PRN Hypoglycemia, Other, For blood glucose 54 - 69 mg/dL or 70 - 100 mg/dL with symptoms and patient alert without difficulty chewing/swallowing., Starting on Mon01/14/25 at 2306, Until Mon01/29/25 at 1851 insulin aspart (NovoLOG) inj Subcutaneous, W/MEALS AND HS, First dose on Mon01/15/25 at 0800, Until Discontinued, MEDIUM DOSE (Usual starting dose): [...] insulin dose and call covering provider. Given 01/19/2025 9:14 PM EDT 2 Units Arm Right Upper Given 01/19/2025 6:09 PM EDT 2 Units Ar m Left Upper Given 01/18/2025 7:13 PM EDT 2 Units Ar m Left Upper insulin aspart (NovoLOG) inj Subcutaneous, WITH MEALS, First dose on Mon01/16/25 at 0800, Until Discontinued, Dose equals 1 unit of insulin per 15 grams of carbohydrate consumed. Hold dose if patient does not eat Given 01/16/2025 5:56 PM EDT 2 Units Arm Left Upper Given 01/16/2025 8:54 AM EDT 3 Units Ab domen Left Upper insulin aspart (NovoLOG) inj Subcutaneous, WITH MEALS, First dose (after last modification) on Mon01/17/25 at 1200, Until Discontinued, Dose equals 1 unit of insulin per 10 grams of carbohydrate consumed. Hold dose if patient does not eat Given 01/23/2025 9:27 AM EDT 6 Units Arm Left Upper Given 01/22/2025 6:55 PM EDT 5 Units Ar m Left Upper Given 01/22/2025 2:08 PM EDT 3 Units Ar m Left Upper insulin aspart (NovoLOG) inj Subcutaneous, WITH MEALS, First dose (after last modification) on Mon01/20/25 at 1200, Until Discontinued, MEDIUM DOSE (Usual starting dose): [...] insulin dose and call covering provider. Given 01/29/2025 9:18 AM EDT 2 Units Arm Left Upper Given 01/28/2025 1:57 PM EDT 2 Units Ar m Left Upper Given 01/28/2025 10:10 AM EDT 2 Units A rm Right Upper insulin aspart (NovoLOG) inj Subcutaneous, WITH MEALS, First dose (after last modification) on Kayleigh 01/23/25 at 1200, Until Discontinued, Dose equals 1 unit of insulin per 15 grams of carbohydrate consumed. Hold dose if patient does not eat Given 01/29/2025 2:20 PM EDT 3 Units Arm Left Upper Given 01/29/2025 9:20 AM EDT 2 Units Ar m Left Upper Given 01/28/2025 8:48 PM EDT 3 Units Ab domen Left Lower Insulin Glargine (Lantus) inj 10 Units 10 Units, Subcutaneous, AMINSULIN, First dose on Mon01/15/25 at 0900, Until Discontinued, "IF DOSE IS HELD- NOTIFY COVERING PROVIDER!" Given 01/22/2025 8:09 AM EDT 10 Units Arm L eft Upper Given 01/21/2025 8:48 AM EDT 10 Units Ar m Left Upper Given 01/20/2025 9:50 AM EDT 10 Units Ar m Right Upper Insulin Glargine (Lantus) inj 10 Units 10 Units, Subcutaneous, AMINSULIN, First dose (after last modification) on Mon01/29/25 at 0900, Until Discontinued, "IF DOSE IS HELD- NOTIFY COVERING PROVIDER!" Given 01/29/2025 8:53 AM EDT 10 Units Arm L eft Upper Insulin Glargine (Lantus) inj 8 Units 8 Units, Subcutaneous, AMINSULIN, First dose (after last modification) on Mon01/23/25 at 0900, Until Discontinued, "IF DOSE IS HELD- NOTIFY COVERING PROVIDER!" Given 01/28/2025 8:50 AM EDT 8 Units Arm R ight Upper Given 01/27/2025 8:39 AM EDT 8 Units Ar m Left Upper Given 01/26/2025 10:12 AM EDT 8 Units A rm Right Upper Iopamidol (Isovue 300) inj 80 mL 80 mL, Intravenous, ONCE, On Mon01/27/25 at 1300, For 1 dose Given 01/27/2025 12:21 PM EDT 120 mL Iopamidol (Isovue 370) inj 80 mL 80 mL, Intravenous, ONCE, On Mon01/15/25 at 1645, For 1 dose, Radiology Medication Routing (Non-IR) Given 01/15/2025 4:45 PM EDT 80 mL Iopamidol (Isovue 370) inj 80 mL 80 mL, Intravenous, ONCE, On Mon01/20/25 at 2215, For 1 dose, Radiology Medication Routing (Non-IR) Given 01/20/2025 10:15 PM EDT 80 mL Lactobacillus (Culturelle) cap 1 Capsule 1 Capsule, Oral, BID (AM/PM MEALS), First dose on Mon01/14/25 at 2230, Until Discontinued Given 01/29/2025 8:51 AM EDT 1 Capsule Given 01/28/2025 5:27 PM EDT 1 Capsule Given 01/28/2025 8:50 AM EDT 1 Capsule Lactulose (Constulose) oral soln 30 g 30 g, Oral, TID(AM/NOON/HS), First dose on Mon01/14/25 at 2300, Until Discontinued Given 01/15/2025 1:35 PM EDT 30 g Given 01/15/2025 5:44 AM EDT 30 g Given 01/14/2025 11:15 PM EDT 30 g Lactulose (Constulose) oral soln 30 g 30 g, Oral, Q4H, First dose (after last modification) on Mon01/15/25 at 1430, Until Discontinued, Titrate to 5 bowel movements per day Given 01/16/2025 11:54 AM EDT 30 g Given 01/16/2025 8:53 AM EDT 30 g Given 01/16/2025 4:35 AM EDT 30 g Lactulose (Constulose) oral soln 30 g 30 g, Oral, TID(AM/NOON/HS), First dose (after last modification) on Mon01/16/25 at 2200, Until Discontinued, Titrate to 5 bowel movements per day Given 01/28/2025 5:29 AM EDT 30 g Given 01/27/2025 9:11 PM EDT 30 g Given 01/27/2025 1:54 PM EDT 30 g Lactulose (Constulose) oral soln 30 g 30 g, Oral, QID(AM/NOON/PM/HS), First dose (after last modification) on Mon01/28/25 at 1200, Until Discontinued, Titrate to 5 bowel movements per day Given 01/29/2025 4:56 AM EDT 30 g Given 01/28/2025 8:02 PM EDT 30 g Given 01/28/2025 5:27 PM EDT 30 g midodrine (Proamatine) tab 15 mg 15 mg, Oral, TID 06, First dose (after last modification) on Mon01/16/25 at 1215, Until Discontinued, Indications: at hosp d/c 07.06.24Indications:at [facility] d/c 07.06.24 Given 01/29/2025 2:20 PM EDT 15 mg Given 01/29/2025 4:56 AM EDT 15 mg Given 01/28/2025 5:27 PM EDT 15 mg midodrine HCl (Proamatine) tab 10 mg 10 mg, Oral, TID , First dose (after last modification) on Mon01/15/25 at 1800, Until Discontinued, Indications: at hosp d/c 07.06.24Indications:at [facility] d/c 07.06.24 Given 01/16/2025 4:59 AM EDT 10 mg Given 01/15/2025 5:47 PM EDT 10 mg midodrine HCl (Proamatine) tab 7.5 mg 7.5 mg, Oral, TID , First dose on Mon01/14/25 at 2300, Until Discontinued, Indications: at hosp d/c 07.06.24Indications:at [facility] d/c 07.06.24 Given 01/15/2025 12:12 PM EDT 7.5 mg Given 01/15/2025 5:43 AM EDT 7.5 mg Given 01/14/2025 11:08 PM EDT 7.5 mg multivitamin (Mvi) 1 Tablet 1 Tablet, Oral, DAILY NOON, First dose on Mon01/15/25 at 1200, Until Discontinued Given 01/29/2025 2:20 PM EDT 1 Ta blet Given 01/28/2025 11:38 AM EDT 1 Tablet Given 01/27/2025 1:54 PM EDT 1 Tablet NSS 0.9% 500 mL bolus infusion Intravenous, at 500 mL/hr Administer over 60 Minutes, Administer entire volume within 60 minutes or less., ONCE, 1 dose, On 01/19/25 at 1830 KVO 01/19/2025 7:02 PM EDT 5 mL/hr Rate Verify 01/19/2025 7:00 PM EDT 500 mL/hr New Bag 01/19/2025 6:02 PM EDT 500 mL 500 mL/hr omeprazole (PriLOSEC) cap 40 mg 40 mg, Oral, BID (.AM/PM), First dose (after last modification) on Mon01/15/25 at 0900, Until Discontinued Given 01/29/2025 8:52 AM EDT 40 mg Given 01/28/2025 8:02 PM EDT 40 mg Given 01/28/2025 8:50 AM EDT 40 mg ondansetron (Zofran) inj 4 mg 4 mg, IV Push, ONCE, On 01/18/25 at 1645, For 1 dose Given 01/18/2025 6:32 PM EDT 4 mg oxyCODONE (Oxy IR) tab 10 mg 10 mg, Oral, Q6H PRN Pain, Severe, Starting on Mon01/27/25 at 1309, Until Mon01/29/25 at 1850 Given 01/27/2025 1:55 PM EDT 10 mg oxyCODONE (Oxy IR) tab 5 mg 5 mg, Oral, Q6H PRN Pain, Moderate, Starting on Mon01/27/25 at 1308, Until Mon01/29/25 at 1850 potassium and sodium phosphate (Phos-Nak) oral powder 2 Packet 2 Packet, Oral, ONCE, On 01/18/25 at 1200, For 1 dose, Mix 1 packet in 2.5 ounces (75 mL) of water, stir well and administer promptly. 1 packet contains Phosphorus 250 mg (~8 mMoles) + potassium 280 mg (~7.125 mEq) + sodium 160mg (~7.125 mEq) Given 01/18/2025 1:55 PM EDT 2 Packets potassium chloride ER tab 20 mEq 20 mEq, Oral, ONCE, On Mon01/15/25 at 1115, For 1 dose, This med should NOT be Crushed or Chewed Given 01/15/2025 12:11 PM EDT 20 mEq potassium chloride ER tab 20 mEq 20 mEq, Oral, ONCE, On 01/18/25 at 1200, For 1 dose, This med should NOT be Crushed or Chewed Given 01/18/2025 1:56 PM EDT 20 mEq potassium chloride ER tab 20 mEq 20 mEq, Oral, ONCE, On Mon01/22/25 at 0745, For 1 dose, This med should NOT be Crushed or Chewed Given 01/22/2025 8:09 AM EDT 20 mEq potassium chloride ER tab 40 mEq 40 mEq, Oral, ONCE, On Mon01/17/25 at 0830, For 1 dose, This med should NOT be Crushed or Chewed Given 01/17/2025 10:07 AM EDT 40 mEq potassium chloride ER tab 40 mEq 40 mEq, Oral, ONCE, On 01/21/25 at 0930, For 1 dose, This med should NOT be Crushed or Chewed Given 01/21/2025 10:06 AM EDT 40 mEq potassium chloride ER tab 40 mEq 40 mEq, Oral, ONCE, On [place]leigh 01/23/25 at 1345, For 1 dose, This med should NOT be Crushed or Chewed Given 01/23/2025 2:19 PM EDT 40 mEq potassium chloride ER tab 40 mEq 40 mEq, Oral, ONCE, On 01/26/25 at 0900, For 1 dose, This med should NOT be Crushed or Chewed Given 01/26/2025 10:14 AM EDT 40 mEq potassium chloride ER tab 40 mEq 40 mEq, Oral, ONCE, On 01/26/25 at 1300, For 1 dose, This med should NOT be Crushed or Chewed Given 01/26/2025 12:49 PM EDT 40 mEq potassium CHLORide liquid 40 mEq 40 mEq, Oral, ONCE, On Mon01/19/25 at 0930, For 1 dose, To avoid GI irritation, must further diilute 15 ml in 3 ounces H2O or other fluid Given 01/19/2025 11:30 AM EDT 40 mEq potassium CHLORide liquid 40 mEq 40 mEq, Oral, ONCE, On Mon01/20/25 at 0845, For 1 dose, To avoid GI irritation, must further diilute 15 ml in 3 ounces H2O or other fluid Given 01/20/2025 9:50 AM EDT 40 mEq rifAXIMin (Xifaxan) tab 550 mg 550 mg, Oral, BID (AM/PM MEALS), First dose on Mon01/14/25 at 2230, Until Discontinued Given 01/29/2025 8:52 AM EDT 550 mg Given 01/28/2025 5:27 PM EDT 550 mg Given 01/28/2025 8:50 AM EDT 550 mg Saline ([place]) nasal spray 1 [place], Nasal, PRN Other, Starting on Mon01/17/25 at 0241, Until Mon01/29/25 at 1850 Given 01/17/2025 3:03 AM EDT 1 [place] sodium chloride 0.9 % flush/inj 3 mL 3 mL, IV Push, PRN Other, Line Patency, Starting on Mon01/14/25 at 2036, Until Mon01/29/25 at 1851, Do not flush if lock, PICC, or central line not in place, IV infusing or unable to flush Spironolactone (Aldactone) tab 12.5 mg 12.5 mg, Oral, Daily(AM), First dose on Mon01/23/25 at 1015, Until Discontinued Given 01/24/2025 8:39 AM EDT 12.5 mg Given 01/23/2025 12:21 PM EDT 12.5 mg Spironolactone (Aldactone) tab 12.5 mg 12.5 mg, Oral, ONCE, On Mon01/24/25 at 1030, For 1 dose Given 01/24/2025 12:17 PM EDT 12.5 mg Spironolactone (Aldactone) tab 12.5 mg 12.5 mg, Oral, ONCE, On 01/26/25 at 1130, For 1 dose Given 01/26/2025 12:49 PM EDT 12.5 mg Spironolactone (Aldactone) tab 37.5 mg 37.5 mg, Oral, Daily(AM), First dose (after last modification) on 01/25/25 at 0930, Until Discontinued Given 01/26/2025 10:14 AM EDT 37.5 mg Given 01/25/2025 12:35 PM EDT 37.5 mg Spironolactone (Aldactone) tab 50 mg 50 mg, Oral, Daily(AM), First dose (after last modification) on 01/27/25 at 0900, Until Discontinued Given 01/29/2025 8:51 AM EDT 50 mg Given 01/28/2025 8:50 AM EDT 50 mg Given 01/27/2025 8:39 AM EDT 50 mg tamsulosin (Flomax) cap 0.4 mg 0.4 mg, Oral, Daily(AM), First dose on Mon01/15/25 at 0900, Until Discontinued, Administer 30 min after meal. This med should NOT be Crushed or Chewed or opened! ORAL administration only!! Given 01/19/2025 9:04 AM EDT 0.4 mg Given 01/18/2025 8:48 AM EDT 0.4 mg Given 01/17/2025 10:07 AM EDT 0.4 mg tamsulosin (Flomax) cap 0.8 mg 0.8 mg, Oral, Daily(AM), First dose (after last modification) on Mon01/20/25 at 0900, Until Discontinued, Administer 30 min after meal. This med should NOT be Crushed or Chewed or opened! ORAL administration only!! Given 01/29/2025 8:52 AM EDT 0.8 mg Given 01/28/2025 8:50 AM EDT 0.8 mg Given 01/27/2025 8:39 AM EDT 0.8 mg Torsemide (Demadex) tab 10 mg 10 mg, Oral, ONCE, On 01/21/25 at 1015, For 1 dose Given 01/21/2025 10:11 AM EDT 10 mg Torsemide (Demadex) tab 10 mg 10 mg, Oral, ONCE, On Mon01/22/25 at 1045, For 1 dose Given 01/22/2025 11:31 AM EDT 10 mg Torsemide (Demadex) tab 10 mg 10 mg, Oral, Daily(AM), First dose on Mon01/23/25 at 1015, Until Discontinued Given 01/29/2025 8:51 AM EDT 10 mg Given 01/28/2025 8:50 AM EDT 10 mg Given 01/27/2025 8:38 AM EDT 10 mg Torsemide (Demadex) tab 20 mg 20 mg, Oral, Daily(AM), First dose on Mon01/15/25 at 0900, Until Discontinued Given 01/18/2025 8:48 AM EDT 20 mg Given 01/17/2025 10:07 AM EDT 20 mg Given 01/16/2025 8:56 AM EDT 20 mg Torsemide (Demadex) tab 20 mg 20 mg, Oral, Daily(AM), First dose (after last modification) on Mon01/19/25 at 0900, Last dose on Mon01/19/25 at 0900, For 1 dose Given 01/19/2025 9:05 AM EDT 20 mg Vitamin C (Ascorbic Acid) tab 1,000 mg 1,000 mg, Oral, Daily(AM), First dose on Mon01/15/25 at 0900, Until Discontinued Given 01/29/2025 8:52 AM EDT 1,00 0 mg Given 01/28/2025 8:50 AM EDT 1,000 mg Given 01/27/2025 8:39 AM EDT 1,000 mg Vitamin E cap 100 Units 100 Units, Oral, Daily(AM), First dose on Mon01/28/25 at 1200, Until Discontinued Given 01/29/2025 8:52 AM EDT 100 U nits Given 01/28/2025 12:43 PM EDT 100 Units documented in this encounter Active and Recently Administered Medications Times are shown in EDT. Scheduled Medication Order 01/27/2025 01/28/2025 01/29/2025 Allopurinol (Zyloprim) tab 300 mg 300 mg, Oral, Daily(AM), First dose on Mon01/15/25 at 0900, Until Discontinued 0838 (Given - Provider: Promise Alba RN) 0850 (Given - Provider: Sailaja Benson RN) 0852 (Given - Provider: Maria Elena Lopez) atorvaSTATin (Lipitor) tab 20 mg 20 mg, Oral, Daily(AM), First dose on Mon01/15/25 at 0900, Until Discontinued 0838 (Given - Provider: Promise Alba RN) 0850 (Given - Provider: Sailaja Benson RN) 0852 (Given - Provider: Maria Elena Lopez) cefTRIAXone in dextrose (Rocephin) IVPB 1 g (COMPLETED) IV Piggyback, 1 g, ONCE, 1 dose, On Mon01/27/25 at 1015, Administer over 30 Minutes 1031 (Given - Provider: Gabbi Tuttle MD) ciprofloxacin (Cipro) tab 500 mg 500 mg, Oral, Daily(AM), First dose on Mon01/20/25 at 0900, Until Discontinued, Hold antacids and iron for 3-4 hours before and after administration. 0838 (Given - Provider: Promise Alba RN) 0850 (Given - Provider: Sailaja Benson RN) 0852 (Given - Provider: Maria Elena Lopez) Enoxaparin (Lovenox) inj 40 mg 40 mg, Subcutaneous, Daily(AM), First dose on Mon01/28/25 at 0900, Until Discontinued, If patient is on warfarin, inform provider if daily INR value is 2 or greater! 0850 (Given - Provider: Sailaja Benson RN) 0852 (Given - Provider: Maria Elena Lopez) insulin aspart (NovoLOG) inj Subcutaneous, WITH MEALS, First dose (after last modification) on Mon01/20/25 at 1200, Until Discontinued, MEDIUM DOSE (Usual starting dose): [...] suggested insulin dose and call covering provider. 0800 (No Insulin - Provider: Promise Alba RN - Reason: Parameter(s) Not Met)1441 (Given - Provider: Promise Alba RN)1833 (Given - Provider: Rafael Felix RN) 1010 (Given - Provider: Sailaja Benson RN)1357 (Given - Provider: Sailaja Benson RN)1720 (No Insulin - Provider: Sailaja Benson RN - Reason: Parameter(s) Not Met - Comment: 120) 0918 (Given - Provider: Maria Elena Lopez)1312 (No Insulin - Provider: Sailaja Benson RN - Reason: Parameter(s) Not Met - Comment: 120) insulin aspart (NovoLOG) inj Subcutaneous, WITH MEALS, First dose (after last modification) on Mon01/23/25 at 1200, Until Discontinued, Dose equals 1 unit of insulin per 15 grams of carbohydrate consumed. Hold dose if patient does not eat 0800 (No Insulin - Provider: Promise Alba RN - Reason: NPO)1200 (Not Given - Provider: Promise Alba RN - Reason: NPO)1832 (Given - Provider: Rafael Felix RN) 1010 (Given - Provider: Sailaja Benson RN)1357 (Given - Provider: Sailaja Benson RN)2048 (Given - Provider: Mike Rueda RN - Comment: Patient just finished his supper now) 0920 (Given - Provider: Maria Elena Lopez)1420 (Given - Provider: Sailaja Benson RN) Insulin Glargine (Lantus) inj 10 Units 10 Units, Subcutaneous, AMINSULIN, First dose (after last modification) on Mon01/29/25 at 0900, Until Discontinued, "IF DOSE IS HELD- NOTIFY COVERING PROVIDER!" 0853 (Given - Provider: Maria Elena Lopez) Insulin Glargine (Lantus) inj 8 Units (CANCELED) 8 Units, Subcutaneous, AMINSULIN, First dose (after last modification) on Mon01/23/25 at 0900, Until Discontinued, "IF DOSE IS HELD- NOTIFY COVERING PROVIDER!" 0839 (Given - Provider: Promise Alba RN) 0850 (Given - Provider: Sailaja Benson RN) Iopamidol (Isovue 300) inj 80 mL (COMPLETED) 80 mL, Intravenous, ONCE, On Mon01/27/25 at 1300, For 1 dose 1221 (Given - Provider: Wai Howard, RT) Lactobacillus (Culturelle) cap 1 Capsule 1 Capsule, Oral, BID (AM/PM MEALS), First dose on Mon01/14/25 at 2230, Until Discontinued 0839 (Given - Provider: Promise Alba RN)1715 (Given - Provider: Rafael Felix RN) 0850 (Given - Provider: Sailaja Benson RN)1727 (Given - Provider: Sailaja Benson RN) 0851 (Given - Provider: Maria Elena Lopez) Lactulose (Constulose) oral soln 30 g (CANCELED) 30 g, Oral, TID(AM/NOON/HS), First dose (after last modification) on Mon01/16/25 at 2200, Until Discontinued, Titrate to 5 bowel movements per day 0600 (Not Given - Provider: Rox Laguans RN - Reason: Parameter(s) Not Met)1354 (Given - Provider: Promise Alba RN)2111 (Given - Provider: Mike Rueda RN) 0529 (Given - Provider: Mike Rueda RN) Lactulose (Constulose) oral soln 30 g 30 g, Oral, QID(AM/NOON/PM/HS), First dose (after last modification) on Mon01/28/25 at 1200, Until Discontinued, Titrate to 5 bowel movements per day 1243 (Given - Provider: Sailaja Benson RN)1727 (Given - Provider: Sailaja Benson RN)2002 (Given - Provider: Mike Rueda RN) 0456 (Given - Provider: Mike Rueda RN)1200 (Not Given - Provider: Sailaja Benson RN - Reason: Refused-Notify Provider - Comment: pt states will take when he gets home) midodrine (Proamatine) tab 15 mg 15 mg, Oral, TID 06;12;18, First dose (after last modification) on Mon01/16/25 at 1215, Until Discontinued, Indications: at hosp d/c 07.06.24 0556 (Given - Provider: Rox Lagunas RN)1354 (Given - Provider: Promise Alba RN)1715 (Given - Provider: Rafael Felix RN) 0529 (Given - Provider: Mike Rueda RN)1138 (Given - Provider: Sailaja Benson RN)172 (Given - Provider: Sailaja Benson RN) 0456 (Given - Provider: Mike Rueda RN)1420 (Given - Provider: Sailaja Benson RN) multivitamin (Mvi) 1 Tablet 1 Tablet, Oral, DAILY NOON, First dose on Mon01/15/25 at 1200, Until Discontinued 1354 (Given - Provider: Promise Alba RN) 1138 (Given - Provider: Sailaja Benson RN) 1420 (Given - Provider: Sailaja Benson RN) omeprazole (PriLOSEC) cap 40 mg 40 mg, Oral, BID (.AM/PM), First dose (after last modification) on Mon01/15/25 at 0900, Until Discontinued 0838 (Given - Provider: Promise Alba RN)211 (Given - Provider: Mike Rueda RN) 0850 (Given - Provider: Sailaja Benson RN)2001 (Given - Provider: Mike Rueda RN) 0852 (Given - Provider: Maria Elena Lopez) rifAXIMin (Xifaxan) tab 550 mg 550 mg, Oral, BID (AM/PM MEALS), First dose on Mon01/14/25 at 2230, Until Discontinued 0800 (Not Given - Provider: Promise Alba RN - Reason: NPO)171 (Given - Provider: Rafael Felix RN) 0850 (Given - Provider: Sailaja Benson RN)172 (Given - Provider: Sailaja Benson RN) 0852 (Given - Provider: Maria Elena Lopez) Spironolactone (Aldactone) tab 50 mg 50 mg, Oral, Daily(AM), First dose (after last modification) on Mon01/27/25 at 0900, Until Discontinued 0839 (Given - Provider: Promise Alba RN) 0850 (Given - Provider: Sailaja Benson RN) 0851 (Given - Provider: Maria Elena Lopez) tamsulosin (Flomax) cap 0.8 mg 0.8 mg, Oral, Daily(AM), First dose (after last modification) on Mon01/20/25 at 0900, Until Discontinued, Administer 30 min after meal. This med should NOT be Crushed or Chewed or opened! ORAL administration only!! 0839 (Given - Provider: Promise Alba, RN) 0850 (Given - Provider: Sailaja Benson RN) 0852 (Given - Provider: Maria Elena Lopez) Torsemide (Demadex) tab 10 mg 10 mg, Oral, Daily(AM), First dose on Mon01/23/25 at 1015, Until Discontinued 0838 (Given - Provider: Promise Alba, ELOISE) 0850 (Given - Provider: Sailaja Benson RN) 0851 (Given - Provider: Maria Elena Lopez) Vitamin C (Ascorbic Acid) tab 1,000 mg 1,000 mg, Oral, Daily(AM), First dose on Mon01/15/25 at 0900, Until Discontinued 0839 (Given - Provider: Promise Alba RN) 0850 (Given - Provider: Sailaja Benson RN) 0852 (Given - Provider: Maria Elena Lopez) Vitamin E cap 100 Units 100 Units, Oral, Daily(AM), First dose on Mon01/28/25 at 1200, Until Discontinued 1243 (Given - Provider: Sailaja Benson RN) 0852 (Given - Provider: Maria Elena Lopez) PRN Medication Order 01/27/2025 01/28/2025 01/29/2025 Acetaminophen (Tylenol) tab 650 mg 650 mg, Oral, Q6H PRN Pain, Mild, Fever >38C(100.5F), Starting on Mon01/27/25 at 1309, Until Mon01/29/25 at 1850, Maximum of 1 grams (1000 mg) per day. buffered lidocaine 1 % inj (COMPLETED) Intradermal, ONCE PRN INTRA PROCEDURE, Starting on Mon01/27/25 at 1042, Until Mon01/27/25 at 1042, Intra-Op 1042 (Given - Provider: Gerry Padgett MD) buffered lidocaine 1 % inj (COMPLETED) Intradermal, ONCE PRN INTRA PROCEDURE, Starting on Mon01/27/25 at 1044, Until Mon01/27/25 at 1044, Intra-Op 1044 (Given - Provider: Gerry Padgett MD - Comment: right neck) dextrose 50% inj 25 mL 25 mL, IV Push, PRN Hypoglycemia, Other, For blood glucose 54 - 69 mg/dL or 70 - 100 mg/dL with symptoms AND patient is unresponsive, NPO, OR unable to swallow, Starting on Mon01/14/25 at 2306, Until Mon01/29/25 at 185, Administer IV. Recheck blood glucose after 15 minutes. Notify provider. dextrose 50% inj 50 mL 50 mL, IV Push, PRN Hypoglycemia, Other, For blood glucose below 54 mg/dL AND patient unresponsive, NPO, OR unable to swallow, Starting on Mon01/14/25 at 2306, Until Mon01/29/25 at 185, Administer IV. Recheck blood glucose in 15 minutes. Notify provider. glucagon (Glucagen) inj 1 mg 1 mg, Intramuscular, PRN Hypoglycemia, Other, If patient is unresponsive, or NPO and has no IV access, Starting on Mon01/14/25 at 2306, Until Mon01/29/25 at 185, NPO and no IV access with either [...] patient alert WITH difficulty chewing/swallowing, Starting on Mon01/14/25 at 2306, Until Mon01/29/25 at 185, Administer gel. Recheck blood glucose after 15 minutes. Notify provider. 37.5 gram tube = 15 grams glucose = 1 each Glucose (Glutose 15) 40 % gel 30 g of glucose 30 g of glucose, Oral, PRN Hypoglycemia (low sugar), Other, For blood glucose below 54 mg/dL AND patient alert WITH difficulty chewing/swallowing, Starting on Mon01/14/25 at 2306, Until Mon01/29/25 at 185, Administer gel. Recheck blood glucose after 15 minutes. Notify provider. 37.5 gram tube = 15 grams glucose = 1 each glucose chew tab 16 g 16 g, Oral, PRN Hypoglycemia, Other, For blood glucose 54 - 69 mg/dL or 70 - 100 mg/dL with symptoms and patient alert without difficulty chewing/swallowing., Starting on Mon01/14/25 at 2306, Until Mon01/29/25 at 1851 oxyCODONE (Oxy IR) tab 10 mg 10 mg, Oral, Q6H PRN Pain, Severe, Starting on Mon01/27/25 at 1309, Until Mon01/29/25 at 1850 1355 (Given - Provider: Promise Alba RN) oxyCODONE (Oxy IR) tab 5 mg 5 mg, Oral, Q6H PRN Pain, Moderate, Starting on Mon01/27/25 at 1308, Until Mon01/29/25 at 1850 Saline ([place]) nasal spray 1 [place], Nasal, PRN Other, Starting on Mon01/17/25 at 0241, Until Mon01/29/25 at 1850 sodium chloride 0.9 % flush/inj 3 mL 3 mL, IV Push, PRN Other, Line Patency, Starting on Mon01/14/25 at 2036, Until Mon01/29/25 at 1851, Do not flush if lock, PICC, or [...] Advance Directives occurred with: Patient 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
--- OUTSIDE RECORDS SUMMARY | 2025-02-07 23:32 | External Medical Summary ---
Author Name Unknown Address Unknown Organization K01:[place] [facility] [place] [facility] [address] [facility] [address] Laboratory Report Ordering Provider Test Date Status ROSITA DEL ANGEL 01/26/2025 07:11:00 Final Observation Date Value Abnormality Reference (Units ) Status WBC, Total 01/26/2025 07:11:00 4.31 4.00-10.80 (K/uL) Final RBC 01/26/2025 07:11:00 2.34 4.50-5.25 (M/uL) Final Hemoglobin 01/26/2025 07:11:00 7.8 Below low normal 14.0-16.8 (g/dL) Final HCT 01/26/2025 07:11:00 23.3 Below low normal 40.0-48.4 (%) Final MCV 01/26/2025 07:11:00 99.6 82.0-99.5 (fL) Final MCH 01/26/2025 07:11:00 33.3 27.0-34.0 (pg) Final MCHC 01/26/2025 07:11:00 33.5 32.0-36.0 (g/dL) Final RDW 01/26/2025 07:11:00 19.2 11.5-15.5 (%) Final Platelets 01/26/2025 07:11:00 53 Below low normal 140-400 (K/uL) Final MPV 01/26/2025 07:11:00 10.8 6.6-11.1 (fL) Final Nucleated erythrocytes/100 leukocytes [Ratio] in Blood by Automated count 01/26/2025 07:11:00 0 <=0 (/100 WBCs) Final Performing Location [facility] [place] [address] [facility] [address]
--- OUTSIDE RECORDS SUMMARY | 2025-02-07 23:32 | External Medical Summary ---
Author Name Unknown Address Unknown Organization K01:[place] [facility] [place] [address] [place] [address] Laboratory Report Ordering Provider Test Date Status GAB DAWN 01/29/2025 06:37:00 Final Warfarin Therapy
INR: 2 .0-3.0 conventional anticoagulation
INR: 2.5- 3.5 high intensity anticoagulation Observation Date Value Abnormality Reference (Units ) Status PT 01/29/2025 06:37:00 24.9 Above high normal 11 .6-15.2 (seconds) Final INR 01/29/2025 06:37:00 2.2 Above high normal 0. 8-1.2 Final Performing Location [facility] [facility] [place] [address] [place] [address]
--- OUTSIDE RECORDS SUMMARY | 2025-02-07 23:32 | External Medical Summary ---
Author Name Unknown Address Unknown Organization K01:[facility]ATORY [facility] [place] [address] [facility] [place] [address] Laboratory Report Ordering Provider Test Date Status TARYN NIEVES 01/26/2025 07:11:00 Final Observation Date Value Abnormality Reference (Units ) Status BUN 01/26/2025 07:11:00 13 6-20 (mg/dL) Final Creatinine 01/26/2025 07:11:00 1.2 0.6-1.2 (mg/dL) Final Glomerular filtration rate/1.73 sq M.predicted [Volume Rate/Area] in Serum, Plasma or Blood by Creatinine-based formula (CKD-EPI) 01/26/2025 07:11:00 70 >=60 (mL/min) Final eGFR is calculated based on the CKD-EPI 2020 equation. Sodium 01/26/2025 07:11:00 126 Below low normal 135 -146 (mmol/L) Final Potassium 01/26/2025 07:11:00 3.2 Below low normal 3.5 -5.1 (mmol/L) Final Cl 01/26/2025 07:11:00 96 Below low normal 98- 107 (mmol/L) Final CO2 01/26/2025 07:11:00 20 Below low normal 22- 32 (mmol/L) Final Anion gap 01/26/2025 07:11:00 10 7-15 (mmol /L) Final Glucose 01/26/2025 07:11:00 171 Above high normal 70 -120 (mg/dL) Final Albumin 01/26/2025 07:11:00 2.2 Below low normal 3.8 -5.0 (g/dL) Final AST (Aspartate aminotransferase) 01/26/2025 07:11:00 61 Above high normal 10-50 (U/L) Final Alk Phos 01/26/2025 07:11:00 230 Above high normal 35 -130 (U/L) Final Bilirubin, Total 01/26/2025 07:11:00 1.8 Above high no rmal <=1.2 (mg/dL) Final Calcium 01/26/2025 07:11:00 8.0 Below low normal 8.4 -10.2 (mg/dL) Final Protein 01/26/2025 07:11:00 5.0 Below low normal 6.0 -8.3 (g/dL) Final ALT (Alanine aminotransferase) 01/26/2025 07:11:00 36 10-50 (U/L) Christian bundy Performing Location LABORATORY [facility] [place] - [address] [facility] [address]
--- OUTSIDE RECORDS SUMMARY | 2025-02-07 23:32 | External Medical Summary ---
Author Name Unknown Address Unknown Organization : Laboratory Report Ordering Provider Test Date Status ALESHA ROCHA 01/26/2025 20:53:48 Final Observation Date Value Abnormality Reference (Units ) Status Glucose Point of Care 01/26/2025 20:53:48 162 Above high normal 70-120 (mg/dL) Final Performing Location
--- OUTSIDE RECORDS SUMMARY | 2025-02-07 23:32 | External Medical Summary ---
Author Name Unknown Address Unknown Organization : Laboratory Report Ordering Provider Test Date Status VALENTINO COLE 01/29/2025 07:20:46 Final Observation Date Value Abnormality Reference (Units ) Status Glucose Point of Care 01/29/2025 07:20:46 158 Above high normal 70-120 (mg/dL) Final Performing Location
--- OUTSIDE RECORDS SUMMARY | 2025-02-07 23:32 | External Medical Summary ---
Author Name Unknown Address Unknown Organization K01:[place] [facility] [place] [address] [place] [address] Laboratory Report Ordering Provider Test Date Status LÓPEZVIRICLAUDETTE 01/25/2025 07:42:00 Final Warfarin Therapy
INR: 2 .0-3.0 conventional anticoagulation
INR: 2.5- 3.5 high intensity anticoagulation Observation Date Value Abnormality Reference (Units ) Status PT 01/25/2025 07:42:00 22.0 Above high normal 11 .6-15.2 (seconds) Final INR 01/25/2025 07:42:00 1.9 Above high normal 0. 8-1.2 Final Performing Location [facility] [facility] [place] [address] [place] [address]
--- OUTSIDE RECORDS SUMMARY | 2025-02-07 23:32 | External Medical Summary ---
Author Name Unknown Address Unknown Organization : Laboratory Report Ordering Provider Test Date Status ALESHA ROCHA 01/26/2025 07:58:16 Final Observation Date Value Abnormality Reference (Units ) Status Glucose Point of Care 01/26/2025 07:58:16 162 Above high normal 70-120 (mg/dL) Final Performing Location
--- OUTSIDE RECORDS SUMMARY | 2025-02-07 23:32 | External Medical Summary ---
Author Name Unknown Address Unknown Organization K01:LABORATORY [facility] [place] - [facility] [address] [facility] [address] Laboratory Report Ordering Provider Test Date Status ROSITA DEL ANGEL 01/25/2025 07:42:00 Final Observation Date Value Abnormality Reference (Units ) Status WBC, Total 01/25/2025 07:42:00 4.15 4.00-10.80 (K/uL) Final RBC 01/25/2025 07:42:00 2.38 4.50-5.25 (M/uL) Final Hemoglobin 01/25/2025 07:42:00 8.0 Below low normal 14.0-16.8 (g/dL) Final HCT 01/25/2025 07:42:00 23.5 Below low normal 40.0-48.4 (%) Final MCV 01/25/2025 07:42:00 98.7 82.0-99.5 (fL) Final MCH 01/25/2025 07:42:00 33.6 27.0-34.0 (pg) Final MCHC 01/25/2025 07:42:00 34.0 32.0-36.0 (g/dL) Final RDW 01/25/2025 07:42:00 19.4 11.5-15.5 (%) Final Platelets 01/25/2025 07:42:00 60 Below low normal 140-400 (K/uL) Final MPV 01/25/2025 07:42:00 10.6 6.6-11.1 (fL) Final Nucleated erythrocytes/100 leukocytes [Ratio] in Blood by Automated count 01/25/2025 07:42:00 0 <=0 (/100 WBCs) Final Performing Location LABORATORY [facility] [place] - [address] [place] [address]
--- OUTSIDE RECORDS SUMMARY | 2025-02-07 23:32 | External Medical Summary ---
Author Name Unknown Address Unknown Organization : Laboratory Report Ordering Provider Test Date Status ALESHA ROCHA 01/28/2025 16:26:22 Final Observation Date Value Abnormality Reference (Units ) Status Glucose Point of Care 01/28/2025 16:26:22 120 70-120 (mg/dL) Final Performing Location
--- OUTSIDE RECORDS SUMMARY | 2025-02-07 23:32 | External Medical Summary ---
Author Name Unknown Address Unknown Organization K01:[facility]ATORY [facility] [place] [address] [place] [address] Laboratory Report Ordering Provider Test Date Status ROSTIA DEL ANGEL 01/27/2025 06:43:00 Final Observation Date Value Abnormality Reference (Units ) Status WBC, Total 01/27/2025 06:43:00 3.73 Below low normal 4.00-10.80 (K/uL) Final RBC 01/27/2025 06:43:00 2.46 4.50-5.25 (M/uL) Final Hemoglobin 01/27/2025 06:43:00 8.1 Below low normal 14.0-16.8 (g/dL) Final HCT 01/27/2025 06:43:00 24.3 Below low normal 40.0-48.4 (%) Final MCV 01/27/2025 06:43:00 98.8 82.0-99.5 (fL) Final MCH 01/27/2025 06:43:00 32.9 27.0-34.0 (pg) Final MCHC 01/27/2025 06:43:00 33.3 32.0-36.0 (g/dL) Final RDW 01/27/2025 06:43:00 19.1 11.5-15.5 (%) Final Platelets 01/27/2025 06:43:00 54 Below low normal 140-400 (K/uL) Final MPV 01/27/2025 06:43:00 10.9 6.6-11.1 (fL) Final Nucleated erythrocytes/100 leukocytes [Ratio] in Blood by Automated count 01/27/2025 06:43:00 0 <=0 (/100 WBCs) Final Performing Location LAB[facility]ATORY [facility] [place] - [address] [place] [address]
--- OUTSIDE RECORDS SUMMARY | 2025-02-07 23:32 | External Medical Summary ---
Author Name Unknown Address Unknown Organization K01:[facility]ATORY [facility] [place] [address] [place] [address] Laboratory Report Ordering Provider Test Date Status GAB DAWN 01/28/2025 06:46:00 Final Warfarin Therapy
INR: 2 .0-3.0 conventional anticoagulation
INR: 2.5- 3.5 high intensity anticoagulation Observation Date Value Abnormality Reference (Units ) Status PT 01/28/2025 06:46:00 23.8 Above high normal 11 .6-15.2 (seconds) Final INR 01/28/2025 06:46:00 2.1 Above high normal 0. 8-1.2 Final Performing Location LABORATORY [facility] [place] - [address] [place] [address]
--- OUTSIDE RECORDS SUMMARY | 2025-02-07 23:32 | External Medical Summary ---
Author Name Unknown Address Unknown Organization : Laboratory Report Ordering Provider Test Date Status ALESHA ROCHA 01/25/2025 07:29:41 Final Observation Date Value Abnormality Reference (Units ) Status Glucose Point of Care 01/25/2025 07:29:41 127 Above high normal 70-120 (mg/dL) Final Performing Location
--- OUTSIDE RECORDS SUMMARY | 2025-02-07 23:32 | External Medical Summary ---
Author Name Unknown Address Unknown Organization : Laboratory Report Ordering Provider Test Date Status VALENTINO COLE 01/29/2025 11:37:22 Final Observation Date Value Abnormality Reference (Units ) Status Glucose Point of Care 01/29/2025 11:37:22 120 70-120 (mg/dL) Final Performing Location
--- OUTSIDE RECORDS SUMMARY | 2025-02-07 23:32 | External Medical Summary ---
Author Name Unknown Address Unknown Organization : Laboratory Report Ordering Provider Test Date Status ALESHA ROCHA 01/27/2025 14:03:44 Final Observation Date Value Abnormality Reference (Units ) Status Glucose Point of Care 01/27/2025 14:03:44 157 Above high normal 70-120 (mg/dL) Final Performing Location
--- OUTSIDE RECORDS SUMMARY | 2025-02-07 23:32 | External Medical Summary ---
Author Name Unknown Address Unknown Organization K01:[facility] [facility] [place] [facility] [place] [address] [facility] [place] [address] Laboratory Report Ordering Provider Test Date Status TARYN NIEVES 01/25/2025 07:42:00 Final Observation Date Value Abnormality Reference (Units ) Status BUN 01/25/2025 07:42:00 9 6-20 (mg/dL) Final Creatinine 01/25/2025 07:42:00 1.1 0.6-1.2 (mg/dL) Final Glomerular filtration rate/1.73 sq M.predicted [Volume Rate/Area] in Serum, Plasma or Blood by Creatinine-based formula (CKD-EPI) 01/25/2025 07:42:00 74 >=60 (mL/min) Final eGFR is calculated based on the CKD-EPI 2020 equation. Sodium 01/25/2025 07:42:00 123 Below low normal 135 -146 (mmol/L) Final Potassium 01/25/2025 07:42:00 3.6 3.5-5.1 (m mol/L) Final Cl 01/25/2025 07:42:00 95 Below low normal 98- 107 (mmol/L) Final CO2 01/25/2025 07:42:00 21 Below low normal 22- 32 (mmol/L) Final Anion gap 01/25/2025 07:42:00 7 7-15 (mmol /L) Final Glucose 01/25/2025 07:42:00 125 Above high normal 70 -120 (mg/dL) Final Albumin 01/25/2025 07:42:00 2.1 Below low normal 3.8 -5.0 (g/dL) Final AST (Aspartate aminotransferase) 01/25/2025 07:42:00 67 Above high normal 10-50 (U/L) Final Results may be falsely eleva tone due to hemolysis. Alk Phos 01/25/2025 07:42:00 229 Above high normal 35 -130 (U/L) Final Bilirubin, Total 01/25/2025 07:42:00 2.0 Above high no rmal <=1.2 (mg/dL) Final Calcium 01/25/2025 07:42:00 7.7 Below low normal 8.4 -10.2 (mg/dL) Final Protein 01/25/2025 07:42:00 5.0 Below low normal 6.0 -8.3 (g/dL) Final ALT (Alanine aminotransferase) 01/25/2025 07:42:00 36 10-50 (U/L) Christian bundy Performing Location [facility] [place] [facility] [place] [address] [facility] [address]
--- OUTSIDE RECORDS SUMMARY | 2025-02-07 23:32 | External Medical Summary ---
Author Name Unknown Address Unknown Organization K01:[facility]ORY [facility] [place] [address] [place] [address] Laboratory Report Ordering Provider Test Date Status TARYN NIEVES 01/27/2025 06:43:00 Final Observation Date Value Abnormality Reference (Units ) Status BUN 01/27/2025 06:43:00 12 6-20 (mg/dL) Final Creatinine 01/27/2025 06:43:00 1.2 0.6-1.2 (mg/dL) Final Glomerular filtration rate/1.73 sq M.predicted [Volume Rate/Area] in Serum, Plasma or Blood by Creatinine-based formula (CKD-EPI) 01/27/2025 06:43:00 67 >=60 (mL/min) Final eGFR is calculated based on the CKD-EPI 2020 equation. Sodium 01/27/2025 06:43:00 126 Below low normal 135 -146 (mmol/L) Final Potassium 01/27/2025 06:43:00 3.9 3.5-5.1 (m mol/L) Final Cl 01/27/2025 06:43:00 98 98-107 (mm ol/L) Final CO2 01/27/2025 06:43:00 20 Below low normal 22- 32 (mmol/L) Final Anion gap 01/27/2025 06:43:00 8 7-15 (mmol /L) Final Glucose 01/27/2025 06:43:00 114 70-120 (mg /dL) Final Albumin 01/27/2025 06:43:00 2.2 Below low normal 3.8 -5.0 (g/dL) Final AST (Aspartate aminotransferase) 01/27/2025 06:43:00 65 Above high normal 10-50 (U/L) Final Results may be falsely eleva tone due to hemolysis. Alk Phos 01/27/2025 06:43:00 230 Above high normal 35 -130 (U/L) Final Bilirubin, Total 01/27/2025 06:43:00 1.8 Above high no rmal <=1.2 (mg/dL) Final Calcium 01/27/2025 06:43:00 7.7 Below low normal 8.4 -10.2 (mg/dL) Final Protein 01/27/2025 06:43:00 5.0 Below low normal 6.0 -8.3 (g/dL) Final ALT (Alanine aminotransferase) 01/27/2025 06:43:00 37 10-50 (U/L) Christian bundy Performing Location LABORATORY [facility] – [place] - [address] [facility] [address]
--- OUTSIDE RECORDS SUMMARY | 2025-02-07 23:32 | External Medical Summary ---
Author Name Unknown Address Unknown Organization : Laboratory Report Ordering Provider Test Date Status ALESHA ROCHA 01/28/2025 11:21:28 Final Observation Date Value Abnormality Reference (Units ) Status Glucose Point of Care 01/28/2025 11:21:28 187 Above high normal 70-120 (mg/dL) Final Performing Location
--- OUTSIDE RECORDS SUMMARY | 2025-02-07 23:32 | External Medical Summary | Summary of Care ---
Author Name Unknown Organization [facility] Address [address] [place] [address] Phone [phone] Care Team Providers Care Patient Svcs Mgr Name Role Phone Krystian Palomo MD Primary Care Provide r Encounter Details Date Type Department Care Team (Late st Contact Info) Description 01/29/2025 Medication Management [facility] General Internal Medicine [address], [place] [phone] Bong Chahal MD [address], [place] [phone] Allergies Active Allergy Reactions Criticality Noted Date Comments Aspirin 01/28/2022 Other reaction(s): bloody nose Salicylates 08/08/2001 nose bleeds documented as of this encounter (statuses as of 01/29/2025) Medications Multivitamin Adult Oral Tablet daily . [...] Capsule 5 01/30/20 25 Active Midodrine HCl 5 MG Oral Tablet (Proamatine) Take 3 Tablets by mouth in the morning and 3 Tablets at noon and 3 Tablets in the evening. 270 Tablet 5 01/30/20 25 Active Midodrine HCl 2.5 MG Oral Tablet (Proamatine) Take 3 Tablets by mouth in the morning and 3 Tablets at noon and 3 Tablets in the evening. 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 Increased from 7.5 mg tid to 15 mg tid. Patient made aware over phone. Has not yet picked up meds. Cosigned by Rachel Hallman MD at 01/29/2025 6:54 PM EDT documented in this encounter Plan of Treatment Upcoming Encounters Date Type Department Care Team (Late st Contact Info) Description 02/04/2025 12:30 PM EDT Office Visit Gastroenterology, [facility] [address] [place] [phone] Ren Pineda CRNP [address] [place] [address] 03/10/2025 7:20 AM EDT Office Visit Family Medicine [address] [place] [phone] Krystian Palomo MD [address] [place] [address] [place] [address] 03/20/2025 10:30 AM EDT Office Visit Cardiology, [facility] [address] [place] [phone] Chino Carrillo PA-C [address] [place] [address] 04/18/2025 10:30 AM EDT Office Visit Gastroenterology, [facility] [address] [place] [phone] Ren Pineda CRNP [address] [place] [address] 06/02/2025 10:00 AM EDT Office Visit Family Medicine [address] [place] [address] Krystian Palomo MD [address] [place] [address] [place] [address] 09/11/2025 2:00 PM EST Imaging Radiology [address] [place] [address] Scheduled Procedures Name Priority Associated Diagnoses Date/Ti [...] this encounter Medical Devices Implanted Type Area Retirement Actuary Device Identifier Shelf Expiration Date Model / Serial / Lot Lipiodol Injection - [id number] Implanted:Qty[facility] [employer] 04/28/2026 17304-637 [id number] Syr Pf 2ml Embospheres 100-300 - [id number] Implanted:Qty: 1 [facility] [id number] 02/26/2026 S220GH / / [id number] Syr Pf 2ml Embospheres 100-300 - [id number] Implanted:Qty: [facility] [employer] [id number] 12/27/2026 S220GH / / [id number] Lipiodol Injection - [id number] Implanted:Qty: 1 on 04/11/2024 at [facility] [employer] 19889-334 1-2 / / Tip Endoprosthesis [id number] - [id number] Implanted:Qty: 1 on 01/27/2025 at [facility] [employer] [id number] 10/11/2027 [id number] / [id number] / [id number] documented as of this encounter Advance Directives [...] Advance Directives occurred with: Patient Care Teams Patient Svcs Mgr Relationship Specialty Start Date End Date Krystian Palomo MD [address] [place] [address] [place] [address] PCP - General Family Medicine 12/22/23 documented as of this encounter
--- OUTSIDE RECORDS SUMMARY | 2025-02-07 23:32 | External Medical Summary ---
Author Name Unknown Address Unknown Organization [id number]:LABORATORY [facility] [place] [address] [place] [address] Laboratory Report Ordering Provider Test Date Status LÓPEZVIRICLAUDETTE 01/27/2025 06:43:00 Final Warfarin Therapy
INR: 2 .0-3.0 conventional anticoagulation
INR: 2.5- 3.5 high intensity anticoagulation Observation Date Value Abnormality Reference (Units ) Status PT 01/27/2025 06:43:00 22.3 Above high normal 11 .6-15.2 (seconds) Final INR 01/27/2025 06:43:00 1.9 Above high normal 0. 8-1.2 Final Performing Location LABORATORY [facility] [place] [address] [place] [address]
--- OUTSIDE RECORDS SUMMARY | 2025-02-07 23:32 | External Medical Summary ---
Author Name Unknown Address Unknown Organization [id number]:LAB[facility]ORY [facility] [place] [facility] - [address] [place] [address] Laboratory Report Ordering Provider Test Date Status GAB DAWN 01/27/2025 06:43:00 Final Observation Date Value Abnormality Reference (Units ) Status ABO 01/27/2025 06:43:00 A Final RH 01/27/2025 06:43:00 Positive Final RED BLOOD CELL ANTIBODY SCREEN 01/27/2025 06:43:00 Negative Final SPECIMEN EXPIRATION DATE 01/27/2025 06:43:00 01/30/2025 23:59 Final Performing Location [facility] - [address] [place] [address]
--- OUTSIDE RECORDS SUMMARY | 2025-02-07 23:32 | External Medical Summary ---
Author Name Unknown Address Unknown Organization : Laboratory Report Ordering Provider Test Date Status ALESHA ROCHA 01/27/2025 16:43:03 Final Observation Date Value Abnormality Reference (Units ) Status Glucose Point of Care 01/27/2025 16:43:03 161 Above high normal 70-120 (mg/dL) Final Performing Location
--- OUTSIDE RECORDS SUMMARY | 2025-02-07 23:32 | External Medical Summary ---
Author Name Unknown Address Unknown Organization : Laboratory Report Ordering Provider Test Date Status ALESHA ROCHA 01/28/2025 07:21:01 Final Observation Date Value Abnormality Reference (Units ) Status Glucose Point of Care 01/28/2025 07:21:01 197 Above high normal 70-120 (mg/dL) Final Performing Location
--- OUTSIDE RECORDS SUMMARY | 2025-02-07 23:32 | External Medical Summary | Summary of Care ---
Author Name Unknown Organization [facility] Address [address] [place] [address] Phone [phone] Care Team Providers Care Tire Fabric Inspector Name Role Phone Joann Collier MD Primary Care Provide r Reason for Visit * Reason Onset Date Comments Order Request 01/10/2025 Encounter Details Date Type Department Care Team (Late st Contact Info) Description 01/10/[address] [phone] Joann Collier MD [address] [place] [address] [place] [address] Order Request Allergies Active Allergy Reactions Criticality Noted Date Comments Aspirin 01/28/2022 Other reaction(s): bloody nose Salicylates 08/08/2001 nose bleeds documented as of this encounter (statuses as of 01/24/2025) Medications Multivitamin Adult Oral Tablet daily . [...] DxE11.9 3 Each 3 10/29/20 24 Suspended Allopurinol 300 MG Oral Tablet (Zyloprim)Indicatio [...] bedtime. 4050 mL 1 11/11/19 25 Suspended Insulin Degludec 100 UNIT/ML Subcutaneous Solution Pen-injector (Tresiba FlexTouch)Indicatio ns:Type 2 diabetes mellitus with hemoglobin A1c goal of less than 7.0% (HCC) Inject 10 Units under the skin in the morning. 3 mL 2 11/27/19 25 Suspended Potassium Chloride [facility] ER 10 MEQ Oral Tablet Extended ReleaseIndications: Low serum potassium Take 2 Tablets by mouth in the morning and 2 Tablets before bedtime. 12/10/19 25 Suspended Nadolol 40 MG Oral Tablet (Corgard) Take 0.25 Tablets by mouth in the morning. 01/02/20 25 Suspended Pantoprazole Sodium 40 MG Oral Tablet Delayed Release (Protonix) Take 1 Tablet by mouth in the morning and 1 Tablet before bedtime. 01/01/20 25 Suspended documented as of this encounter (statuses as of 01/24/2025) Active Problems Problem Noted Date Diagnosed Date Pre-transplant evaluation for chronic liver dise ase 01/17/2025 Decompensated hepatic cirrhosis 01/14/2025 Recurrent pleural effusion on left 01/14/2025 Hepatocellular carcinoma 12/10/2024 Ascites 12/06/2024 Chronic hyponatremia 12/06/2024 Umbilical hernia 12/06/2024 Draining cutaneous sinus tract 12/06/2024 Malnutrition of moderate degree 12/06/2024 BPH without obstruction/lower urinary tract symp toms 12/22/2023 BMI 36.0-36.9,adult 10/24/2023 Overview (10/24/2023): 266 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 07/05/2023 Hepatic encephalopathy 03/28/2022 Overview (12/06/2022): admitted [facility], ammonia 110 Nonrheumatic aortic valve stenosis 01/21/2022 [...] as of this encounter (statuses as of 01/24/2025) Resolved Problems Problem Noted Date Diagnosed Date [...] as of this encounter (statuses as of 01/24/2025) Immunizations Name Administration Dates Next Due COVID-19 [...] file Not on file Not on file [employer] Not on file Not on file Not [...] encounter Miscellaneous Notes * Telephone Encounter - Joann Collier MD - 01/24/2025 12:49 PM EDT Will ask the qs during clinic visit * Telephone Encounter - Fiorella Bates CMA - 01/24/2025 11:34 AM EDT Called and spoke with Maura from [employer] and she states, needs to note frequent position changes not able to be in a standard/regular bed. Put notes of what they want/need for insurance to cover on deck, will need to resubmitted to [facility] after * Telephone Encounter - Joann Collier MD - 01/24/2025 11:28 AM EDT Can we get more infor abt what they specifically requiring * Telephone Encounter - Fiorella Bates CMA - 01/24/2025 8:14 AM EDT Received message from [employer] through [employer] [facility]. "@Fiorella Bates please have the [employer] [facility] progress notes signed and dated by the provider. The notes sent did not have the proper verbiage needed, the orders are on hold." You signed Office note and order on Monday before I [email or web address]. * Telephone Encounter - Fiorella Bates CMA - 01/22/2025 11:39 AM EDT Faxed orders to [facility] at [phone] * Telephone Encounter - Fiorella Bates CMA - 01/21/2025 7:49 AM EDT Message from [employer] [facility] "Your order is being processed Hi Fiorella Bates, Order [id number] for Lloyd Spencer (1965) is being fulfilled by [facility] [employer] [facility] ([place]). If you need assistance with this order, please call . We will send one more email notification once the order has been delivered." * Telephone Encounter - Fiorella Bates CMA - 01/16/2025 11:03 AM EDT [facility] * Telephone Encounter - Nery Mathews OSA - 01/16/2025 10:28 AM EDT Snow returning call- in regards to hospital bed and wheelchair. [facility] [place] is agreeable to [facility] as well. Would like to get this taken care of as soon as possible. * Telephone Encounter - Susana Crenshaw RN - 01/14/2025 2:19 PM EDT I left a message for Snow to call us back after they check with his insurance to see who acceptsit If they do not know we could try to send this to [facility] and let them check * Telephone Encounter - Susana Crenshaw RN - 01/14/2025 1:40 PM EDT Pt needs called to see who accepts his insurance. * Telephone Encounter - Gail De León OSA - 01/14/2025 9:44 AM EDT [facility] calling they are out of network with patient insurance [employer], they are unable tocomplete orders * Telephone Encounter - Daniella Paez CMA - 01/13/2025 2:58 PM EDT Sent the orders and notes to [facility]. * Addendum Note - Joann Collier MD - 01/11/2025 8:45 AM EDTAddended by: JOANN COLLIER on: 01/11/2025 08:45 AM Modules accepted: Orders * Telephone Encounter - Joann Collier MD - 01/11/2025 8:41 AM EDT Will [...] speak to patient. I will message Dr. Collier re orders for a wheelchair and hospital [...] 11:17 AM EDT Good Morning, Nurse at [facility] called on mutual patient to request an order for wheel chair and hospital bed. Please call patients sister Snow Spencer at [phone] to discuss. Thank you XIOMARA Maurer documented in this encounter Plan of Treatment Upcoming Encounters Date Type Department Care Team (Late st Contact Info) Description 02/04/2025 12:30 PM EDT Office Visit Gastroenterology, [facility] [address] [place] [phone] Ren Pineda CRNP [address] [place] [address] 03/10/2025 7:20 AM EDT Office Visit Family Medicine [address] [address] Joann Collier MD [address] [place] [address] [place] [address] 03/20/2025 10:30 AM EDT Office Visit Cardiology, [facility] [address] [place] [phone] Chino Carrillo PA-C [address] [place] [address] 04/18/2025 10:30 AM EDT Office Visit Gastroenterology, [facility] [address] [place] [phone] Ren Pineda CRNP [address] [place] [address] 06/02/2025 10:00 AM EDT Office Visit Family Medicine [address] [place] [phone] Joann Collier MD [address] [place] [address] [place] [address] 09/11/2025 2:00 PM EST Imaging Radiology [address] [place] [address] Scheduled Procedures Name Priority Associated Diagnoses Date/Ti [...] history exists Depression Screening 09/09/2025 09/09/2024 GFR 01/24/2026 01/24/2025, 12/29, 01/22/2025, Additional history exists Lipid Panel 09/18/2028 09/18/2023, [...] this encounter Medical Devices Implanted Type Area Csr Technician Device Identifier Shelf Expiration Date Model / Serial / Lot Lipiodol Injection - [id number] Implanted:Q[facility]/2026 [id number] Syr Pf 2ml Embospheres 100-300 - [id number] Implanted:Qty: 1 on 08/02/2023 at [facility] [employer] [id number] 02/26/2026 S220GH / / [id number] Syr Pf 2ml Embospheres 100-300 - [id number] Implanted:Qty: 1 on 04/11/2024 at [facility] [employer] [id number] 12/27/2026 S220GH / / [id number] Lipiodol Injection - [id number] Implanted:Qty: 1 on 04/11/2024 at [facility] [employer] [address]-05 documented as of this encounter Visit Diagnoses Diagnosis 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 Question Answer Comments Discussion of Advance Directives occurred with: Patient * Full Code Date Activated Date Inactivated Comments 12/05/2024 11:24 PM 12/07/2024 5:18 PM This order re flects the patients wishes and were consensually agreed upon. Question Answer Comments Discussion of Advance Directives occurred with: Patient Care Teams Tire Fabric Inspector Relationship Specialty Start Date End Date Joann Collier MD [address] [place] [address] [place] [address] PCP - General Family Medicine 12/22/23 documented as of this encounter
--- OUTSIDE RECORDS SUMMARY | 2025-02-07 23:32 | External Medical Summary ---
Author Name Unknown Address Unknown Organization : Laboratory Report Ordering Provider Test Date Status ALESHA ROCHA 01/25/2025 16:29:19 Final Observation Date Value Abnormality Reference (Units ) Status Glucose Point of Care 01/25/2025 16:29:19 164 Above high normal 70-120 (mg/dL) Final Performing Location
--- OUTSIDE RECORDS SUMMARY | 2025-02-07 23:32 | External Medical Summary ---
Author Name Unknown Address Unknown Organization K01:LABORATORY [facility] [place] - [address] [facility] [address] Laboratory Report Ordering Provider Test Date Status ALESHA ROCHA 01/26/2025 13:54:00 Final Observation Date Value Abnormality Reference (Units ) Status BUN 01/26/2025 13:54:00 12 6-20 (mg/dL) Final Creatinine 01/26/2025 13:54:00 1.2 0.6-1.2 (mg/dL) Final Glomerular filtration rate/1.73 sq M.predicted [Volume Rate/Area] in Serum, Plasma or Blood by Creatinine-based formula (CKD-EPI) 01/26/2025 13:54:00 69 >=60 (mL/min) Final eGFR is calculated based on the CKD-EPI 2020 equation. Sodium 01/26/2025 13:54:00 127 Below low normal 135 -146 (mmol/L) Final Potassium 01/26/2025 13:54:00 3.5 3.5-5.1 (m mol/L) Final Cl 01/26/2025 13:54:00 97 Below low normal 98- 107 (mmol/L) Final CO2 01/26/2025 13:54:00 21 Below low normal 22- 32 (mmol/L) Final Anion gap 01/26/2025 13:54:00 9 7-15 (mmol /L) Final Glucose 01/26/2025 13:54:00 175 Above high normal 70 -120 (mg/dL) Final Calcium 01/26/2025 13:54:00 7.6 Below low normal 8.4 -10.2 (mg/dL) Final Performing Location LABORATORY [facility] [place] - [address] [place] [address]
--- OUTSIDE RECORDS SUMMARY | 2025-02-07 23:32 | External Medical Summary ---
Author Name Unknown Address Unknown Organization : Laboratory Report Ordering Provider Test Date Status ALESHA ROCHA 01/25/2025 21:01:07 Final Observation Date Value Abnormality Reference (Units ) Status Glucose Point of Care 01/25/2025 21:01:07 180 Above high normal 70-120 (mg/dL) Final Performing Location
--- OUTSIDE RECORDS SUMMARY | 2025-02-07 23:32 | External Medical Summary ---
Author Name Unknown Address Unknown Organization K01:[facility] [place] [facility] [address] [facility] [address] [facility] [address] Laboratory Report Ordering Provider Test Date Status ROSITA DEL ANGEL 01/28/2025 06:46:00 Final Observation Date Value Abnormality Reference (Units ) Status WBC, Total 01/28/2025 06:46:00 5.84 4.00-10.80 (K/uL) Final RBC 01/28/2025 06:46:00 2.73 4.50-5.25 (M/uL) Final Hemoglobin 01/28/2025 06:46:00 8.8 Below low normal 14.0-16.8 (g/dL) Final HCT 01/28/2025 06:46:00 26.3 Below low normal 40.0-48.4 (%) Final MCV 01/28/2025 06:46:00 96.3 82.0-99.5 (fL) Final MCH 01/28/2025 06:46:00 32.2 27.0-34.0 (pg) Final MCHC 01/28/2025 06:46:00 33.5 32.0-36.0 (g/dL) Final RDW 01/28/2025 06:46:00 20.7 11.5-15.5 (%) Final Platelets 01/28/2025 06:46:00 58 Below low normal 140-400 (K/uL) Final MPV 01/28/2025 06:46:00 10.8 6.6-11.1 (fL) Final Nucleated erythrocytes/100 leukocytes [Ratio] in Blood by Automated count 01/28/2025 06:46:00 0 <=0 (/100 WBCs) Final Performing Location [facility] [facility] [place] [address] [facility] [address]
--- OUTSIDE RECORDS SUMMARY | 2025-02-07 23:32 | External Medical Summary ---
Author Name Unknown Address Unknown Organization : Laboratory Report Ordering Provider Test Date Status ALESHA ROCHA 01/27/2025 11:13:32 Final Observation Date Value Abnormality Reference (Units) Status Blood draw [PhenX] 01/27/2025 11:13:32 Arterial Draw Final pH, POC (i-STAT) 01/27/2025 11:13:32 7.378 7.350-7.450 Final PCO2 POC (i-STAT) 01/27/2025 11:13:32 35.5 35.0-45.0 (mm Hg) Final PO2 POC (i-STAT) 01/27/2025 11:13:32 184 Above high normal 75-100 (mm Hg) Final Base excess standard in Arterial blood by calculation 01/27/2025 11:13:32 -4 Below low normal -2-2 (mmol/L) Final Bicarbonate, Venous, POC (i-STAT) 01/27/2025 11:13:32 20.9 Below low normal 23.0-31.0 (mmol/L) Final O2 Sat, calculated POC (i-STAT) 01/27/2025 11:13:32 100.0 Above high normal 94.0-98.0 (%) Final Glucose, whole blood 01/27/2025 11:13:32 142 Above high normal 70-120 (mg/dL) Final Potassium, Whole Blood 01/27/2025 11:13:32 3.5 3.5-5.1 (mmol/L) Final Sodium, Whole Blood 01/27/2025 11:13:32 129 Below low normal 135-146 (mmol/L) Final Calcium, Ionized, Whole Blood 01/27/2025 11:13:32 1.13 1.13-1.32 (mmol/L) Final Hemoglobin POC (i-STAT) 01/27/2025 11:13:32 8.5 Below low normal 14.0-16.8 (g/dL) Final HCT 01/27/2025 11:13:32 25 Below low normal 40-48 (%) Final Oxygen/Total gas setting [Volume Fraction] Ventilator 01/27/2025 11:13:32 61 (%) Final Performing Location
--- OUTSIDE RECORDS SUMMARY | 2025-02-07 23:32 | External Medical Summary ---
Author Name Unknown Address Unknown Organization K01:LABORATORY [facility] [place] - [address] [facility] [place] [address] Laboratory Report Ordering Provider Test Date Status TARYN NIEVES 01/29/2025 06:37:00 Final Observation Date Value Abnormality Reference (Units ) Status BUN 01/29/2025 06:37:00 14 6-20 (mg/dL) Final Creatinine 01/29/2025 06:37:00 1.2 0.6-1.2 (mg/dL) Final Glomerular filtration rate/1.73 sq M.predicted [Volume Rate/Area] in Serum, Plasma or Blood by Creatinine-based formula (CKD-EPI) 01/29/2025 06:37:00 67 >=60 (mL/min) Final eGFR is calculated based on the CKD-EPI 2020 equation. Sodium 01/29/2025 06:37:00 131 Below low normal 135 -146 (mmol/L) Final Potassium 01/29/2025 06:37:00 3.9 3.5-5.1 (m mol/L) Final Cl 01/29/2025 06:37:00 99 98-107 (mm ol/L) Final CO2 01/29/2025 06:37:00 22 22-32 (mmo l/L) Final Anion gap 01/29/2025 06:37:00 10 7-15 (mmol /L) Final Glucose 01/29/2025 06:37:00 164 Above high normal 70 -120 (mg/dL) Final Albumin 01/29/2025 06:37:00 2.2 Below low normal 3.8 -5.0 (g/dL) Final AST (Aspartate aminotransferase) 01/29/2025 06:37:00 87 Above high normal 10-50 (U/L) Final Alk Phos 01/29/2025 06:37:00 284 Above high normal 35 -130 (U/L) Final Bilirubin, Total 01/29/2025 06:37:00 2.6 Above high no rmal <=1.2 (mg/dL) Final Calcium 01/29/2025 06:37:00 7.8 Below low normal 8.4 -10.2 (mg/dL) Final Protein 01/29/2025 06:37:00 4.8 Below low normal 6.0 -8.3 (g/dL) Final ALT (Alanine aminotransferase) 01/29/2025 06:37:00 44 10-50 (U/L) Christian bundy Performing Location LABORATORY [facility] - [address] [facility] [address]
--- OUTSIDE RECORDS SUMMARY | 2025-02-07 23:32 | External Medical Summary ---
Author Name Unknown Address Unknown Organization : Laboratory Report Ordering Provider Test Date Status ALESHA ROCHA 01/25/2025 12:12:43 Final Observation Date Value Abnormality Reference (Units ) Status Glucose Point of Care 01/25/2025 12:12:43 129 Above high normal 70-120 (mg/dL) Final Performing Location
--- OUTSIDE RECORDS SUMMARY | 2025-02-07 23:32 | External Medical Summary ---
Author Name Unknown Address Unknown Organization : Laboratory Report Ordering Provider Test Date Status VALENTINO COLE 01/28/2025 22:22:58 Final Observation Date Value Abnormality Reference (Units ) Status Glucose Point of Care 01/28/2025 22:22:58 214 Above high normal 70-120 (mg/dL) Final Performing Location
--- OUTSIDE RECORDS SUMMARY | 2025-02-07 23:32 | External Medical Summary ---
Author Name Unknown Address Unknown Organization : Laboratory Report Ordering Provider Test Date Status ALESHA ROCHA 01/26/2025 11:37:37 Final Observation Date Value Abnormality Reference (Units ) Status Glucose Point of Care 01/26/2025 11:37:37 197 Above high normal 70-120 (mg/dL) Final Performing Location
--- OUTSIDE RECORDS SUMMARY | 2025-02-07 23:32 | External Medical Summary ---
Author Name Unknown Address Unknown Organization : Laboratory Report Ordering Provider Test Date Status ALESHA ROCHA 01/27/2025 20:49:39 Final Observation Date Value Abnormality Reference (Units ) Status Glucose Point of Care 01/27/2025 20:49:39 274 Above high normal 70-120 (mg/dL) Final Performing Location
--- OUTSIDE RECORDS SUMMARY | 2025-02-07 23:32 | External Medical Summary ---
Author Name Unknown Address Unknown Organization : Laboratory Report Ordering Provider Test Date Status ALESHA ROCHA 01/26/2025 17:34:40 Final Observation Date Value Abnormality Reference (Units ) Status Glucose Point of Care 01/26/2025 17:34:40 122 Above high normal 70-120 (mg/dL) Final Performing Location
--- OUTSIDE RECORDS SUMMARY | 2025-02-07 23:32 | External Medical Summary | Summary of Care ---
Author Name Unknown Organization [facility] Address [address] [place] [address] Phone [phone] Care Team Providers Care Harnessmaker Name Role Phone Joann Collier MD Primary Care Provide r Reason for Visit * Reason Onset Date Comments Order Request 01/10/2025 Encounter Details Date Type Department Care Team (Late st Contact Info) Description 01/10/[address] [phone] Joann Collier MD [address] [place] [address] [place] [address] Order Request Allergies Active Allergy Reactions Criticality [...] 07/05/2023 Hepatic encephalopathy 03/28/2022 Overview (12/06/2022): admitted [facility], ammonia 110 Nonrheumatic aortic valve [...] Not on file 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 Put notes of what they want/need for insurance to cover on deck, will need to resubmitted to [facility] after * Telephone Encounter - Joann Collier MD - 01/24/2025 11:28 AM EDT Can we get more infor abt what they specifically requiring * Telephone Encounter - Fiorella Bates CMA - 01/24/2025 8:14 AM EDT Received message from [employer] through [employer] [facility]. "@Fiorella Bates please have the [email or web address] progress notes signed and dated by the provider. The notes sent did not have the proper verbiage needed, the orders are on hold." You signed Office note and order on Monday before I [facility]. * Telephone Encounter - Fiorella Bates CMA - 01/22/2025 11:39 AM EDT Faxed orders to [facility] at [phone] * Telephone Encounter - Fiorella Bates CMA - 01/21/2025 7:49 AM EDT Message from [employer] [facility] "Your order is being processed Hi Fiorella Bates, Order [id number] for Lloyd Spencer (1965) is being fulfilled by [employer] (ALEX). If you need assistance with this order, please call . We will send one more email notification once the order has been delivered." * Telephone Encounter - Fiorella Bates CMA - 01/16/2025 11:03 AM EDT Submitted order for hospital bed and wheelchair [facility] * Telephone Encounter - Nery Mathews OSA - 01/16/2025 10:28 AM EDT Snow returning call- in regards to hospital bed and wheelchair. [facility] [place] is agreeable to [facility] as well. Would like to get this taken care of as soon as possible. * Telephone Encounter - Susana Crenshaw RN - 01/14/2025 2:19 PM EDT I left a message for Snow to call us back after they check with his insurance to see who acceptsit If they do not know we could [email or web address] and let them check * [...] EDT Sent the orders and notes to [facility]. * Addendum Note - Joann Collier MD [...] Please call patients sister Snow Spencer at [phone] to discuss. Thank you XIOMARA Maurer documented in this encounter Plan of Treatment Upcoming Encounters Date Type Department Care Team (Late st Contact Info) Description 02/04/2025 12:30 PM EDT Office Visit Gastroenterology, [facility] [address] [place] [phone] Ren Pineda CRNP [address] [place] [address] 03/10/2025 7:20 AM EDT Office Visit Family Medicine [address] [phone] Joann Collier MD [address] [place] [address] [place] [address] 03/20/2025 10:30 AM EDT Office Visit Cardiology, [facility] [address] [place] [phone] Chino Carrillo PA-C [address] [place] [address] 04/18/2025 10:30 AM EDT Office Visit Gastroenterology, [facility] [address] [place] [phone] Ren Pineda CRNP [address] [place] [address] 06/02/2025 10:00 AM EDT Office Visit Family Medicine [address] [place] [phone] Joann Collier MD [address] [place] [address] [place] [address] 09/11/2025 2:00 PM EST Imaging Radiology [address] [place] [address] Scheduled Procedures Name Priority Associated Diagnoses Date/Ti [...] this encounter Medical Devices Implanted Type Area A P Manager Device Identifier Shelf Expiration Date Model / Serial / Lot Lipiodol Injection - [id number] Implanted:Qty: 1 on [facility]02[facility]2023 [facility] 04/28/2026 [id number] Syr Pf 2ml Embospheres 100-300 - [id number] Implanted:Qty: 1 on 08/02/2023 at [facility] [employer] [id number] 02/26/2026 S220GH / / [id number] Syr Pf 2ml Embospheres 100-300 - [id number] Implanted:Qty: 1 on 04/11/2024 at [facility] [employer] [id number] 12/27/2026 S220GH / / [id number] Lipiodol Injection - [id number] Implanted:Qty: 1 on 04/11/2024 at [facility] [employer] [id number] documented as of this encounter Visit Diagnoses [...] Advance Directives occurred with: Patient Care Teams Harnessmaker Relationship Specialty Start Date End Date Joann Collier MD [address] [place] [address] [place] [address] PCP - General Family Medicine 12/22/23 documented as of this encounter
--- OUTSIDE RECORDS SUMMARY | 2025-02-07 23:32 | External Medical Summary ---
Author Name Unknown Address Unknown Organization K01:[facility] [place] - [address] [facility] [place] [address] Laboratory Report Ordering Provider Test Date Status TARYN NIEVES 01/28/2025 06:46:00 Final Observation Date Value Abnormality Reference (Units ) Status BUN 01/28/2025 06:46:00 11 6-20 (mg/dL) Final Creatinine 01/28/2025 06:46:00 1.3 Above high normal 0.6-1.2 (mg/dL) Final Glomerular filtration rate/1.73 sq M.predicted [Volume Rate/Area] in Serum, Plasma or Blood by Creatinine-based formula (CKD-EPI) 01/28/2025 06:46:00 63 >=60 (mL/min) Final eGFR is calculated based on the CKD-EPI 2020 equation. Sodium 01/28/2025 06:46:00 126 Below low normal 135 -146 (mmol/L) Final Potassium 01/28/2025 06:46:00 4.0 3.5-5.1 (m mol/L) Final Cl 01/28/2025 06:46:00 95 Below low normal 98- 107 (mmol/L) Final CO2 01/28/2025 06:46:00 21 Below low normal 22- 32 (mmol/L) Final Anion gap 01/28/2025 06:46:00 10 7-15 (mmol /L) Final Glucose 01/28/2025 06:46:00 206 Above high normal 70 -120 (mg/dL) Final Albumin 01/28/2025 06:46:00 2.3 Below low normal 3.8 -5.0 (g/dL) Final AST (Aspartate aminotransferase) 01/28/2025 06:46:00 88 Above high normal 10-50 (U/L) Final Alk Phos 01/28/2025 06:46:00 281 Above high normal 35 -130 (U/L) Final Bilirubin, Total 01/28/2025 06:46:00 3.1 Above high no rmal <=1.2 (mg/dL) Final Calcium 01/28/2025 06:46:00 8.0 Below low normal 8.4 -10.2 (mg/dL) Final Protein 01/28/2025 06:46:00 5.1 Below low normal 6.0 -8.3 (g/dL) Final ALT (Alanine aminotransferase) 01/28/2025 06:46:00 45 10-50 (U/L) Christian bundy Performing Location LAB[facility] - [address] [facility] [address]
--- OUTSIDE RECORDS SUMMARY | 2025-02-07 23:32 | External Medical Summary ---
Author Name Unknown Address Unknown Organization K01:[facility] [place] [facility] [address] [facility] [address] [facility] [address] Laboratory Report Ordering Provider Test Date Status ROSITA DEL ANGEL 01/29/2025 06:37:00 Final Observation Date Value Abnormality Reference (Units ) Status WBC, Total 01/29/2025 06:37:00 7.49 4.00-10.80 (K/uL) Final RBC 01/29/2025 06:37:00 2.59 4.50-5.25 (M/uL) Final Hemoglobin 01/29/2025 06:37:00 8.2 Below low normal 14.0-16.8 (g/dL) Final HCT 01/29/2025 06:37:00 24.8 Below low normal 40.0-48.4 (%) Final MCV 01/29/2025 06:37:00 95.8 82.0-99.5 (fL) Final MCH 01/29/2025 06:37:00 31.7 27.0-34.0 (pg) Final MCHC 01/29/2025 06:37:00 33.1 32.0-36.0 (g/dL) Final RDW 01/29/2025 06:37:00 20.6 11.5-15.5 (%) Final Platelets 01/29/2025 06:37:00 70 Below low normal 140-400 (K/uL) Final MPV 01/29/2025 06:37:00 10.4 6.6-11.1 (fL) Final Nucleated erythrocytes/100 leukocytes [Ratio] in Blood by Automated count 01/29/2025 06:37:00 0 <=0 (/100 WBCs) Final Performing Location [facility] [place] [address] [facility] [address]
--- OUTSIDE RECORDS SUMMARY | 2025-02-07 23:32 | External Medical Summary ---
Author Name Unknown Address Unknown Organization : Laboratory Report Ordering Provider Test Date Status ALESHA ROCHA 01/24/2025 20:55:35 Final Observation Date Value Abnormality Reference (Units ) Status Glucose Point of Care 01/24/2025 20:55:35 176 Above high normal 70-120 (mg/dL) Final Performing Location
--- OUTSIDE RECORDS SUMMARY | 2025-02-07 23:32 | External Medical Summary ---
Author Name Unknown Address Unknown Organization : Laboratory Report Ordering Provider Test Date Status ALESHA ROCHA 01/27/2025 08:07:23 Final Observation Date Value Abnormality Reference (Units ) Status Glucose Point of Care 01/27/2025 08:07:23 106 70-120 (mg/dL) Final Performing Location
--- OUTSIDE RECORDS SUMMARY | 2025-02-07 23:32 | External Medical Summary ---
Author Name Unknown Address Unknown Organization K01:[facility] [place] [address] [place] [address] Laboratory Report Ordering Provider Test Date Status GAB DAWN 01/26/2025 07:11:00 Final Warfarin Therapy
INR: 2 .0-3.0 conventional anticoagulation
INR: 2.5- 3.5 high intensity anticoagulation Observation Date Value Abnormality Reference (Units ) Status PT 01/26/2025 07:11:00 22.1 Above high normal 11 .6-15.2 (seconds) Final INR 01/26/2025 07:11:00 1.9 Above high normal 0. 8-1.2 Final Performing Location [facility] [place] [place] [address] [place] [address]
--- OUTSIDE RECORDS SUMMARY | 2025-02-07 23:33 | External Medical Summary ---
Author Name Unknown Address Unknown Organization : Laboratory Report Ordering Provider Test Date Status ALESHA ROCHA 01/22/2025 07:47:52 Final Observation Date Value Abnormality Reference (Units ) Status Glucose Point of Care 01/22/2025 07:47:52 111 70-120 (mg/dL) Final Performing Location
--- OUTSIDE RECORDS SUMMARY | 2025-02-07 23:33 | External Medical Summary ---
Author Name Unknown Address Unknown Organization : Laboratory Report Ordering Provider Test Date Status ALESHA ROCHA 01/23/2025 16:27:51 Final Observation Date Value Abnormality Reference (Units ) Status Glucose Point of Care 01/23/2025 16:27:51 150 Above high normal 70-120 (mg/dL) Final Performing Location
--- OUTSIDE RECORDS SUMMARY | 2025-02-07 23:33 | External Medical Summary ---
Author Name Unknown Address Unknown Organization : Laboratory Report Ordering Provider Test Date Status ALESHA ROCHA 01/22/2025 16:38:24 Final Observation Date Value Abnormality Reference (Units ) Status Glucose Point of Care 01/22/2025 16:38:24 129 Above high normal 70-120 (mg/dL) Final Performing Location
--- OUTSIDE RECORDS SUMMARY | 2025-02-07 23:33 | External Medical Summary ---
Author Name Unknown Address Unknown Organization : Laboratory Report Ordering Provider Test Date Status ALESHA ROCHA 01/23/2025 21:12:52 Final Observation Date Value Abnormality Reference (Units ) Status Glucose Point of Care 01/23/2025 21:12:52 159 Above high normal 70-120 (mg/dL) Final Performing Location
--- OUTSIDE RECORDS SUMMARY | 2025-02-07 23:33 | External Medical Summary ---
Author Name Unknown Address Unknown Organization : Laboratory Report Ordering Provider Test Date Status ALESHA ROCHA 01/22/2025 21:05:09 Final Observation Date Value Abnormality Reference (Units ) Status Glucose Point of Care 01/22/2025 21:05:09 146 Above high normal 70-120 (mg/dL) Final Performing Location
--- OUTSIDE RECORDS SUMMARY | 2025-02-07 23:33 | External Medical Summary ---
Author Name Unknown Address Unknown Organization K01:[facility] [place] [address] [place] [address] Laboratory Report Ordering Provider Test Date Status GAB DAWN 01/24/2025 06:07:00 Final Warfarin Therapy
INR: 2 .0-3.0 conventional anticoagulation
INR: 2.5- 3.5 high intensity anticoagulation Observation Date Value Abnormality Reference (Units ) Status PT 01/24/2025 06:07:00 21.9 Above high normal 11 .6-15.2 (seconds) Final INR 01/24/2025 06:07:00 1.9 Above high normal 0. 8-1.2 Final Performing Location [facility] [place] [address] [place] [address]
--- OUTSIDE RECORDS SUMMARY | 2025-02-07 23:33 | External Medical Summary ---
Author Name Unknown Address Unknown Organization : Laboratory Report Ordering Provider Test Date Status ALESHA ROCHA 01/24/2025 07:29:01 Final Observation Date Value Abnormality Reference (Units ) Status Glucose Point of Care 01/24/2025 07:29:01 114 70-120 (mg/dL) Final Performing Location
--- OUTSIDE RECORDS SUMMARY | 2025-02-07 23:33 | External Medical Summary | Summary of Care ---
Author Name Unknown Organization [facility] Address [address] [place] [address] Phone [phone] Care Team Providers Care Central Office Mechanic Name Role Phone Joann Collier MD Primary Care Provide r Reason for Visit * Reason Onset Date Comments Order Request 01/10/2025 Encounter Details Date Type Department Care Team (Late st Contact Info) Description 01/10/[address] [address] Joann Collier MD [address] [place] [address] [place] [address] Order Request Allergies Active Allergy Reactions Criticality Noted Date Comments Aspirin 01/28/2022 Other reaction(s): bloody nose Salicylates 08/08/2001 nose bleeds documented as of this encounter (statuses as of 01/22/2025) Medications Multivitamin Adult Oral Tablet daily . [...] as of this encounter (statuses as of 01/22/2025) Active Problems Problem Noted Date Diagnosed Date [...] encephalopathy 03/28/2022 Overview (12/06/2022): admitted 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 If you need assistance with this order, please call . We will send one more email notification once the order has been delivered." * Telephone Encounter - Fiorella Bates CMA - 01/16/2025 11:03 AM EDT Submitted order for hospital bed and wheelchair to [facility] * Telephone Encounter - Nery Mathews OSA - 01/16/2025 10:28 AM EDT Snow returning call- in regards to hospital bed and wheelchair. [facility] [place] is agreeable to [facility] as well. Would like to get this taken care of as soon as possible. * Telephone Encounter - Susana Crenshaw RN - 01/14/2025 2:19 PM EDT I left a message for Snow to call us back after they check with his insurance to see who acceptsit If they do not know we could [facility] and let them check * Telephone Encounter - Susana Crenshaw RN - 01/14/2025 1:40 PM EDT Pt needs called to see who accepts his insurance. * Telephone Encounter - Gail De León OSA - 01/14/2025 9:44 AM EDT [facility] calling they are out of network with patient insurance [employer], they are unable tocomplete orders * Telephone Encounter - Daniella Paez CMA - 01/13/2025 2:58 PM EDT Sent the orders and notes to [facility]. * Addendum Note - Joann Collier MD [...] 11:17 AM EDT Good Morning, Nurse at [facility] called on [employer] patient to request an order for wheel chair and hospital bed. Please call patients sister Snow Spencer at [phone] to discuss. Thank you XIOMARA Maurer documented in this encounter Plan of Treatment Upcoming Encounters Date Type Department Care Team (Late st Contact Info) Description 02/04/2025 12:30 PM EDT Office Visit Gastroenterology, [facility] [address] [place] [phone] Ren Pineda CRNP [address] [place] [address] 03/10/2025 7:20 AM EDT Office Visit Family Medicine [address] [place] [phone] Joann Collier MD [address] [place] [address] [place] [address] 03/20/2025 10:30 AM EDT Office Visit Cardiology, [facility] [address] [place] [phone] Chino Carrillo PA-C [address] [place] [address] 04/18/2025 10:30 AM EDT Office Visit Gastroenterology, [facility] [address] [place] [phone] Ren Pineda CRNP [address] [place] [address] 06/02/2025 10:00 AM EDT Office Visit Family Medicine [address] [place] [phone] Joann Collier MD [address] [place] [address] [place] [address] 09/11/2025 2:00 PM EST Imaging Radiology [address] [place] [address] Scheduled Procedures Name Priority Associated Diagnoses Date/Ti [...] history exists Depression Screening 09/09/2025 09/09/2024 GFR 01/22/2026 01/22/2025, 12/29, 01/20/2025, Additional history exists Lipid Panel 09/18/2028 09/18/2023, [...] this encounter Medical Devices Implanted Type Area Skilled Laborer Device Identifier Shelf Expiration Date Model / Serial / Lot Lipiodol Injection - [id number] Implanted:Qty: 1 on 08/02/2023 at [facility] [employer] [facility] 04/28/2026 [id number] Syr Pf 2ml Embospheres 100-300 - [id number] Implanted:Qty: 1 on 08/02/2023 at [facility] [employer] [id number] 02/26/2026 S220GH / / [id number] Syr Pf 2ml Embospheres 100-300 - [id number] Implanted:Qty: 1 on 04/11/2024 at [facility] [employer] [id number] 12/27/2026 S220GH / / [id number] Lipiodol Injection - [id number] Implanted:Qty: 1 on 04/11/2024 at [facility] [place] [id number] documented as of this encounter Visit Diagnoses [...] Advance Directives occurred with: Patient Care Teams Central Office Mechanic Relationship Specialty Start Date End Date Joann Collier MD [address] [place] [address] [place] [address] PCP - General Family Medicine 12/22/23 documented as of this encounter
--- OUTSIDE RECORDS SUMMARY | 2025-02-07 23:33 | External Medical Summary ---
Author Name Unknown Address Unknown Organization : Laboratory Report Ordering Provider Test Date Status PEGGY MORALES 01/21/2025 16:09:24 Final Observation Date Value Abnormality Reference (Units ) Status Glucose Point of Care 01/21/2025 16:09:24 189 Above high normal 70-120 (mg/dL) Final Performing Location
--- OUTSIDE RECORDS SUMMARY | 2025-02-07 23:33 | External Medical Summary ---
Author Name Unknown Address Unknown Organization K01:[facility] [place] - [facility] [address] [facility] [address] [facility] [address] [facility] [address] Laboratory Report Ordering Provider Test Date Status ROSITA DEL ANGEL 01/22/2025 05:51:00 Final Observation Date Value Abnormality Reference (Units ) Status WBC, Total 01/22/2025 05:51:00 4.48 4.00-10.80 (K/uL) Final RBC 01/22/2025 05:51:00 2.52 4.50-5.25 (M/uL) Final Hemoglobin 01/22/2025 05:51:00 8.2 Below low normal 14.0-16.8 (g/dL) Final HCT 01/22/2025 05:51:00 24.7 Below low normal 40.0-48.4 (%) Final MCV 01/22/2025 05:51:00 98.0 82.0-99.5 (fL) Final MCH 01/22/2025 05:51:00 32.5 27.0-34.0 (pg) Final MCHC 01/22/2025 05:51:00 33.2 32.0-36.0 (g/dL) Final RDW 01/22/2025 05:51:00 19.7 11.5-15.5 (%) Final Platelets 01/22/2025 05:51:00 52 Below low normal 140-400 (K/uL) Final MPV 01/22/2025 05:51:00 11.2 6.6-11.1 (fL) Final Nucleated erythrocytes/100 leukocytes [Ratio] in Blood by Automated count 01/22/2025 05:51:00 0 <=0 (/100 WBCs) Final Performing Location [facility] [place] - [address] [facility] [address]
--- OUTSIDE RECORDS SUMMARY | 2025-02-07 23:33 | External Medical Summary ---
Author Name Unknown Address Unknown Organization K01:[facility] [place] [address] [facility] [address] Laboratory Report Ordering Provider Test Date Status ROSITA DEL ANGEL 01/24/2025 06:07:00 Final Observation Date Value Abnormality Reference (Units ) Status WBC, Total 01/24/2025 06:07:00 4.44 4.00-10.80 (K/uL) Final RBC 01/24/2025 06:07:00 2.51 4.50-5.25 (M/uL) Final Hemoglobin 01/24/2025 06:07:00 8.2 Below low normal 14.0-16.8 (g/dL) Final HCT 01/24/2025 06:07:00 24.8 Below low normal 40.0-48.4 (%) Final MCV 01/24/2025 06:07:00 98.8 82.0-99.5 (fL) Final MCH 01/24/2025 06:07:00 32.7 27.0-34.0 (pg) Final MCHC 01/24/2025 06:07:00 33.1 32.0-36.0 (g/dL) Final RDW 01/24/2025 06:07:00 19.3 11.5-15.5 (%) Final Platelets 01/24/2025 06:07:00 57 Below low normal 140-400 (K/uL) Final MPV 01/24/2025 06:07:00 10.4 6.6-11.1 (fL) Final Nucleated erythrocytes/100 leukocytes [Ratio] in Blood by Automated count 01/24/2025 06:07:00 0 <=0 (/100 WBCs) Final Performing Location LAB[facility] [place] - [address] [place] [address]
--- OUTSIDE RECORDS SUMMARY | 2025-02-07 23:33 | External Medical Summary ---
Author Name Unknown Address Unknown Organization : Laboratory Report Ordering Provider Test Date Status ALESHA ROCHA 01/24/2025 11:44:30 Final Observation Date Value Abnormality Reference (Units ) Status Glucose Point of Care 01/24/2025 11:44:30 179 Above high normal 70-120 (mg/dL) Final Performing Location
--- OUTSIDE RECORDS SUMMARY | 2025-02-07 23:33 | External Medical Summary ---
Author Name Unknown Address Unknown Organization : Laboratory Report Ordering Provider Test Date Status PEGGY MORALES 01/21/2025 20:50:29 Final Observation Date Value Abnormality Reference (Units ) Status Glucose Point of Care 01/21/2025 20:50:29 124 Above high normal 70-120 (mg/dL) Final Performing Location
--- OUTSIDE RECORDS SUMMARY | 2025-02-07 23:33 | External Medical Summary | Summary of Care ---
Author Name Unknown Organization [facility] Address [address] [place] [address] Phone [phone] Care Team Providers Care Crt Name Role Phone Krystian Palomo MD Primary Care Provide r Reason for Visit * Reason Comments Pre-Transplant Evaluation Encounter Details Date Type Department Care Team (Late st Contact Info) Description 01/22/2025 Documentation Transplant Clinic, [place] [address] [place] [address] Violet Sommer, CAREER PLACEMENT SPECIALIST [address] [place] [address] Allergies Active Allergy Reactions Criticality Noted Date [...] HCl 2.5 MG Oral Tablet (Proamatine)Indicat ions:at [facility] d/c 09.7.24 Take 3 Tablets by mouth [...] MOUTH EVERY DAY 90 Capsule 11/09/19 25 Suspended Mupirocin 2 % External Ointment (Bactroban) Apply topically to affected area 3 times a day. At hospital discharge 22 g 1 11/11/19 25 Suspended Lactulose 10 GM/15ML Oral Solution (Constulose)Indicat ions:Hepatic encephalopathy (HCC) Take 45 mL by mouth in the morning and 45 mL at noon and 45 mL before bedtime. 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 Met with patient today in his hospital room to provide support and update psychosocial evaluation for liver transplant. He is lying in bed, wearing hospital garb, and appropriately groomed. He presents with smiling affect and pleasant mood. He is alert and oriented in all spheres and maintains goodeye contact. He is trying to manage his tax preparation from his hospital bed. He reports no changes to his social environment since initial evaluation dated 09-18-2023. He continues to live with his brother and mother in his home. He reports he is now receiving SSDI as he was not able to return to work when his STD was exhausted from same. He notes some financial constraintssince that time but is managing. 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 He notes he is feeling some frustration but remains hopeful that the medical team will be able to come up with a solution. He notes his ascites has been making life quite difficult for him lately. In general, his mood remains stable and he is easy to engage. He continues to deny any high risk behaviors and does not exhibit any Sxs of concern upon interview today. His family remains a good support and he continues to have a low psychosocial risk profile score and seems to be an appropriate transplant candidate from a psychosocial perspective at this time. Violet Sommer LCSW Patient needs to be presented at Selection Conference within 3 months of this psychosocial evaluation. If there is a delay, additional Social Work consult may be required. documented in this encounter Plan of Treatment Upcoming Encounters Date Type Department Care Team (Late st Contact Info) Description 02/04/2025 12:30 PM EDT Office Visit Gastroenterology, [facility] [address] [phone] Ren Pineda CRNP [address] [address] 03/10/2025 7:20 AM EDT Office Visit Family Medicine [address] [place] [phone] Krystian Palomo MD [address] [place] [address] [place] [address] 03/20/2025 10:30 AM EDT Office Visit Cardiology, [facility] [address] [phone] Chino Carrillo PA-C [address] [place] [address] 04/18/2025 10:30 AM EDT Office Visit Gastroenterology, [facility] [address] [phone] Ren Pineda CRNP [address] [place] [address] 06/02/2025 10:00 AM EDT Office Visit Family Medicine [address] [place] [phone] Krystian Palomo MD [address] [place] [address] [place] [address] 09/11/2025 2:00 PM EST Imaging Radiology [address] [place] [address] Scheduled Procedures Name Priority Associated Diagnoses Date/Ti [...] encounter Medical Devices Implanted Type Area Media Analyst Device Identifier Shelf Expiration Date Model / Serial / Lot Lipiodol Injection - [id number] Implanted:Qty: 1 on 08/02/2023 at [facility] [employer] 04/28/2026 20121-90 [id number] Syr Pf 2ml Embospheres 100-300 - [id number] Implanted:Qty: 1 on 08/02/2023 at [facility] [employer] [id number] 02/26/2026 S220GH / / [id number] Syr Pf 2ml Embospheres 100-300 - [id number] Implanted:Qty: 1 on 04/11/2024 at [facility] [employer] [id number] 12/27/2026 S220 / / [id number] Lipiodol Injection - [id number] Implanted:Qty: 1 on 04/11/2024 at [facility] KYLER LAU [address] documented as of this encounter Advance Directives [...] Advance Directives occurred with: Patient Care Teams Crt Relationship Specialty Start Date End Date Krystian Palomo MD [address] [place] [address] [place] [address] PCP - General Family Medicine 12/22/23 documented as of this encounter
--- OUTSIDE RECORDS SUMMARY | 2025-02-07 23:33 | External Medical Summary ---
Author Name Unknown Address Unknown Organization K01:[facility] - [address] [place] [address] Laboratory Report Ordering Provider Test Date Status GAB DAWN 01/24/2025 06:06:00 Final Observation Date Value Abnormality Reference (Units ) Status ABO 01/24/2025 06:06:00 A Final RH 01/24/2025 06:06:00 Positive Final RED BLOOD CELL ANTIBODY SCREEN 01/24/2025 06:06:00 Negative Final SPECIMEN EXPIRATION DATE 01/24/2025 06:06:00 01/27/2025 23:59 Final Performing Location [facility] - [address] [place] [address]
--- OUTSIDE RECORDS SUMMARY | 2025-02-07 23:33 | External Medical Summary | Summary of Care ---
Author Name Unknown Organization [facility] Address [address] [place] [address] Phone [phone] Care Team Providers Care Gauge Maker Apprentice Name Role Phone Krystian Palomo MD Primary Care Provide r Reason for Visit * Reason Onset Date Comments Advice 01/06/2025 Encounter Details Date Type Department Care Team (Late st Contact Info) Description 01/06/2025 Telephone Gastroenterology, [facility] [address] [place] [address] Services, Scheduling [address] [place] [address] Advice Allergies Active Allergy Reactions Criticality Noted Date Comments Aspirin 01/28/2022 Other reaction(s): bloody nose Salicylates 08/08/2001 nose bleeds documented as of this encounter (statuses as of 01/21/2025) Medications Multivitamin Adult Oral Tablet daily . [...] MG Oral Tablet (Proamatine)Indicat ions:at [facility] d/c 09.7.24 Take 3 Tablets by mouth [...] At hospital discharge 22 g 11/11/19 25 Suspended Lactulose 10 GM/15ML Oral [...] as of this encounter (statuses as of 01/21/2025) Active Problems Problem Noted Date Diagnosed Date [...] encephalopathy 03/28/2022 Overview (12/06/2022): admitted [facility], ammonia 110 Aortic [...] as of this encounter (statuses as of 01/21/2025) Resolved Problems Problem Noted Date Diagnosed Date [...] as of this encounter (statuses as of 01/21/2025) Immunizations Name Administration Dates Next Due COVID-19 [...] file Not on file Not on file 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 Not on file Not on file Not [...] Telephone Encounter - Catie Torre OSA - 01/21/2025 1:14 PM EDT Called pt to get him set up with hepatology; however, he stated that he is having paracentesis every 4-5 days and that they have him on transplant list for his liver XIOMARA Domingo 01/21/2025 1:15 PM * Telephone Encounter - Catie Torre OSA - 01/17/2025 1:25 PM EDT Pt is currently admitting at [facility] Will have to contact when pt is released XIOMARA Domingo 01/17/2025 1:25 PM * Telephone Encounter - Catie Torre OSA - 01/17/2025 12:33 PM EDT Sent TE to Ren to order new referral for hepatology. Seems that pt had an appt with Jayla that he canceled, but there is no referral for hepatology XIOMARA Domingo 01/17/2025 12:34 PM * Telephone Encounter - Desire Melo RN - 01/07/2025 9:56 AM EDT Patient notified. Is agreeable to see gasser machine operator. Schedulers, please reach out to him. * Telephone Encounter - Ren Pineda CRNP - 01/07/2025 9:20 AM EDT Sorry, I don't feel comfortable increasing the frequency of paracenteses. Needs to reschedule with hepatology. * Telephone Encounter - Migdalia Ramos OSA - 01/06/2025 2:08 PM EDT Patient had the paracentesis done today and they took 7 liters out of him and they said he had probably another 2 or 3 liters still there . Patient is asking if he could have it done every 4 days so on Mondays and Fridays. He said he is so bloated over the weekends and not able to eat or really drink a lot because it makes him feel so full. Please give him a call back thank you documented in this encounter Plan of Treatment Upcoming Encounters Date Type Department Care Team (Late st Contact Info) Description 02/04/2025 12:30 PM EDT Office Visit Gastroenterology, [facility] [address] [place] [phone] Ren Pineda CRNP [address] [place] [address] 03/10/2025 7:20 AM EDT Office Visit Family Medicine [address] [place] [phone] Krystian Palomo MD [address] [place] [address] [place] [address] 03/20/2025 10:30 AM EDT Office Visit Cardiology, [facility] [address] [place] [phone] Chino Carrillo PA-C [address] [place] [address] 04/18/2025 10:30 AM EDT Office Visit Gastroenterology, [facility] [address] [place] [phone] Ren Pineda CRNP [address] [place] [address] 06/02/2025 10:00 AM EDT Office Visit Family Medicine [address] [place] [phone] Krystian Palomo MD [address] [place] [address] [place] [address] 09/11/2025 2:00 PM EST Imaging Radiology [address] [place] [address] Scheduled Procedures Name Priority Associated Diagnoses Date/Ti [...] history exists Depression Screening 09/09/2025 09/09/2024 GFR 01/21/2026 01/21/2025, 12/29, 01/19/2025, Additional history exists Lipid Panel 09/18/2028 09/18/2023, [...] this encounter Medical Devices Implanted Type Area Automotive Service Manager Device Identifier Shelf Expiration Date Model / Serial / Lot Lipiodol Injection - [id number] Implanted:Q[facility]: [facility] 04/28/2026 06358-90 -2 / [id number] Syr Pf 2ml Embospheres 100-300 - [id number] Implanted:Qty: 1 on [facility]/02/2023 [facility] [id number] 02/26/2026 S220GH / / [id number] Syr Pf 2ml Embospheres 100-300 - [id number] Implanted:Qty: 1 on [facility]11/2024 [facility] [id number] 12/27/2026 S220GH / / [id number] Lipiodol Injection - [id number] Implanted:Qty: 1 on 04/11/2024 [facility] 46260-12 -2 / / documented as of this [...] Advance Directives occurred with: Patient Care Teams Gauge Maker Apprentice Relationship Specialty Start Date End Date Krystian Palomo MD [address] [place] [address] [place] [address] PCP - General Family Medicine 12/22/23 documented as of this encounter
--- OUTSIDE RECORDS SUMMARY | 2025-02-07 23:33 | External Medical Summary ---
Author Name Unknown Address Unknown Organization K01:[facility] [place] [address] [facility] [place] [address] Laboratory Report Ordering Provider Test Date Status TARYN NIEVES 01/23/2025 05:32:00 Final Observation Date Value Abnormality Reference (Units ) Status BUN 01/23/2025 05:32:00 11 6-20 (mg/dL) Final Creatinine 01/23/2025 05:32:00 1.1 0.6-1.2 (mg/dL) Final Glomerular filtration rate/1.73 sq M.predicted [Volume Rate/Area] in Serum, Plasma or Blood by Creatinine-based formula (CKD-EPI) 01/23/2025 05:32:00 76 >=60 (mL/min) Final eGFR is calculated based on the CKD-EPI 2020 equation. Sodium 01/23/2025 05:32:00 127 Below low normal 135 -146 (mmol/L) Final Potassium 01/23/2025 05:32:00 4.5 3.5-5.1 (m mol/L) Final Results may be falsely eleva tone due to hemolysis. Cl 01/23/2025 05:32:00 97 Below low normal 98- 107 (mmol/L) Final CO2 01/23/2025 05:32:00 22 22-32 (mmo l/L) Final Anion gap 01/23/2025 05:32:00 8 7-15 (mmol /L) Final Glucose 01/23/2025 05:32:00 98 70-120 (mg /dL) Final Albumin 01/23/2025 05:32:00 2.1 Below low normal 3.8 -5.0 (g/dL) Final AST (Aspartate aminotransferase) 01/23/2025 05:32:00 89 Above high normal 10-50 (U/L) Final Results may be falsely eleva tone due to hemolysis. Alk Phos 01/23/2025 05:32:00 203 Above high normal 35 -130 (U/L) Final Bilirubin, Total 01/23/2025 05:32:00 2.2 Above high no rmal <=1.2 (mg/dL) Final Calcium 01/23/2025 05:32:00 7.8 Below low normal 8.4 -10.2 (mg/dL) Final Protein 01/23/2025 05:32:00 4.9 Below low normal 6.0 -8.3 (g/dL) Final ALT (Alanine aminotransferase) 01/23/2025 05:32:00 35 10-50 (U/L) Fin al Results may be falsely eleva tone due to hemolysis. Performing Location [facility] [address]. [facility] [address]
--- OUTSIDE RECORDS SUMMARY | 2025-02-07 23:33 | External Medical Summary ---
Author Name Unknown Address Unknown Organization K01:[facility] - [address] [facility] [place] [address] Laboratory Report Ordering Provider Test Date Status TARYN NIEVES 01/24/2025 06:07:00 Final Observation Date Value Abnormality Reference (Units ) Status BUN 01/24/2025 06:07:00 13 6-20 (mg/dL) Final Creatinine 01/24/2025 06:07:00 1.2 0.6-1.2 (mg/dL) Final Glomerular filtration rate/1.73 sq M.predicted [Volume Rate/Area] in Serum, Plasma or Blood by Creatinine-based formula (CKD-EPI) 01/24/2025 06:07:00 69 >=60 (mL/min) Final eGFR is calculated based on the CKD-EPI 2020 equation. Sodium 01/24/2025 06:07:00 126 Below low normal 135 -146 (mmol/L) Final Potassium 01/24/2025 06:07:00 3.9 3.5-5.1 (m mol/L) Final Cl 01/24/2025 06:07:00 96 Below low normal 98- 107 (mmol/L) Final CO2 01/24/2025 06:07:00 21 Below low normal 22- 32 (mmol/L) Final Anion gap 01/24/2025 06:07:00 9 7-15 (mmol /L) Final Glucose 01/24/2025 06:07:00 117 70-120 (mg /dL) Final Albumin 01/24/2025 06:07:00 2.1 Below low normal 3.8 -5.0 (g/dL) Final AST (Aspartate aminotransferase) 01/24/2025 06:07:00 64 Above high normal 10-50 (U/L) Final Alk Phos 01/24/2025 06:07:00 226 Above high normal 35 -130 (U/L) Final Bilirubin, Total 01/24/2025 06:07:00 2.1 Above high no rmal <=1.2 (mg/dL) Final Calcium 01/24/2025 06:07:00 7.8 Below low normal 8.4 -10.2 (mg/dL) Final Protein 01/24/2025 06:07:00 4.9 Below low normal 6.0 -8.3 (g/dL) Final ALT (Alanine aminotransferase) 01/24/2025 06:07:00 37 10-50 (U/L) Christian bundy Performing Location [facility] - [address] [facility] [address]
--- OUTSIDE RECORDS SUMMARY | 2025-02-07 23:33 | External Medical Summary | Summary of Care ---
Author Name Unknown Organization [facility] Address [address] [place] [address] Phone [phone] Care Team Providers Care Field Crop Grower Name Role Phone Joann Collier MD Primary Care Provide r Reason for Visit * Reason Onset Date Comments Order Request 01/10/2025 Encounter Details Date Type Department Care Team (Late st Contact Info) Description 01/10/[address] [phone] Joann Collier MD [address] [place] [address] [place] [address] Order Request Allergies Active Allergy Reactions Criticality [...] (12/06/2022): admitted [facility], ammonia 110 Nonrheumatic aortic valve [...] file Not on file 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 "@Fiorella Bates please have the [employer] progress notes signed and dated by the provider. The notes sent did not have the proper verbiage needed, the orders are on hold." You signed Office note and order on Monday before I sent info to [employer]. * Telephone Encounter - Fiorella Bates CMA - 01/22/2025 11:39 AM EDT Faxed orders to [facility] at [phone] * Telephone Encounter - Fiorella Bates CMA - 01/21/2025 7:49 AM EDT Message from [facility] "Your order is being processed Hi Fiorella Bates, Order [id number] for Lloyd Spencer (1965) is being fulfilled by [facility] ([facility]). If you need assistance with this order, please call . We will send one more email notification once the order has been delivered." * Telephone Encounter - Fiorella Bates CMA - 01/16/2025 11:03 AM EDT Submitted order for hospital bed and wheelchair to [facility] * Telephone Encounter - Nery Mathews OSA - 01/16/2025 10:28 AM EDT Snow returning call- in regards to hospital bed and wheelchair. [facility] [place] is agreeable to [facility] as well. Would like to get this taken care of as soon as possible. * Telephone Encounter - Susana Crenshaw RN - 01/14/2025 2:19 PM EDT I left a message for Snow to call us back after they check with his insurance to see who acceptsit If they do not know we could try to send this to [facility] and let them check * Telephone Encounter - Susana Crenshaw RN - 01/14/2025 1:40 PM EDT Pt needs called to see who accepts his insurance. * Telephone Encounter - Gail De León OSA - 01/14/2025 9:44 AM EDT [facility] calling they are out of network with patient insurance [employer], they are unable tocomplete orders * Telephone Encounter - Daniella Paez CMA - 01/13/2025 2:58 PM EDT Sent the orders and notes to [facility]. * Addendum Note - Joann Collier [...] 11:17 AM EDT Good Morning, Nurse at [facility] called on mutual patient to request an order for wheel chair and hospital bed. Please call patients sister Snow Spencer at [phone] to discuss. Thank you XIOMARA Maurer documented in this encounter Plan of Treatment Upcoming Encounters Date Type Department Care Team (Late st Contact Info) Description 02/04/2025 12:30 PM EDT Office Visit Gastroenterology, [facility] [address] [phone] Ren Pineda CRNP [address] [address] 03/10/2025 7:20 AM EDT Office Visit Family [address] [place] [phone] Joann Collier MD [address] [place] [address] [place] [address] 03/20/2025 10:30 AM EDT Office Visit Cardiology, [facility] [address] [place] [phone] Chino Carrillo PA-C [address] [place] [address] 04/18/2025 10:30 AM EDT Office Visit Gastroenterology, [facility] [address] [place] [phone] Ren Pineda CRNP [address] [place] [address] 06/02/2025 10:00 AM EDT Office Visit [address] [place] [phone] Joann Collier MD [address] [place] [address] [place] [address] 09/11/2025 2:00 PM EST Imaging Radiology [address] [place] [address] Scheduled Procedures Name Priority Associated Diagnoses Date/Ti [...] this encounter Medical Devices Implanted Type Area International Recruiter Device Identifier Shelf Expiration Date Model / Serial / Lot Lipiodol Injection - [id number] Implanted:Qty: 1 on 08/02/2023 at [facility] [employer] 04/28/2026 18399-13 [id number] Syr Pf 2ml Embospheres 100-300 - [id number] Implanted:Qty: 1 on 08/02/2023 at [facility] [employer] [id number] 02/26/2026 S220GH / / [id number] Syr Pf 2ml Embospheres 100-300 - [id number] Implanted:Qty: 1 on 04/11/2024 at [facility] [employer] [id number] 12/27/2026 S220GH / / [id number] Lipiodol Injection - [id number] Implanted:Qty: 1 on 04/11/2024 at [facility] [employer] [facility] [address] documented as of this encounter Visit Diagnoses [...] Advance Directives occurred with: Patient Care Teams Field Crop Grower Relationship Specialty Start Date End Date Joann Collier MD [address] [place] [address] [place] [phone] PCP - General Family Medicine 12/22/23 documented as of this encounter
--- OUTSIDE RECORDS SUMMARY | 2025-02-07 23:33 | External Medical Summary ---
Author Name Unknown Address Unknown Organization : Laboratory Report Ordering Provider Test Date Status ALESHA ROCHA 01/24/2025 16:50:41 Final Observation Date Value Abnormality Reference (Units ) Status Glucose Point of Care 01/24/2025 16:50:41 165 Above high normal 70-120 (mg/dL) Final Performing Location
--- OUTSIDE RECORDS SUMMARY | 2025-02-07 23:33 | External Medical Summary ---
Author Name Unknown Address Unknown Organization K01:[facility] [place] [address] [place] [address] Laboratory Report Ordering Provider Test Date Status LÓPEZVIRICLAUDETTE 01/23/2025 05:32:00 Final Warfarin Therapy
INR: 2 .0-3.0 conventional anticoagulation
INR: 2.5- 3.5 high intensity anticoagulation Observation Date Value Abnormality Reference (Units ) Status PT 01/23/2025 05:32:00 21.7 Above high normal 11 .6-15.2 (seconds) Final INR 01/23/2025 05:32:00 1.9 Above high normal 0. 8-1.2 Final Performing Location [facility] [place] [address] [place] [address]
--- OUTSIDE RECORDS SUMMARY | 2025-02-07 23:33 | External Medical Summary ---
Author Name Unknown Address Unknown Organization : Laboratory Report Ordering Provider Test Date Status ALESHA ROCHA 01/23/2025 07:27:42 Final Observation Date Value Abnormality Reference (Units ) Status Glucose Point of Care 01/23/2025 07:27:42 139 Above high normal 70-120 (mg/dL) Final Performing Location
--- OUTSIDE RECORDS SUMMARY | 2025-02-07 23:33 | External Medical Summary ---
Author Name Unknown Address Unknown Organization K01:[facility] [place] - [address] [facility] [place] [address] Laboratory Report Ordering Provider Test Date Status TARYN NIEVES 01/22/2025 05:51:00 Final Observation Date Value Abnormality Reference (Units ) Status BUN 01/22/2025 05:51:00 13 6-20 (mg/dL) Final Creatinine 01/22/2025 05:51:00 1.1 0.6-1.2 (mg/dL) Final Glomerular filtration rate/1.73 sq M.predicted [Volume Rate/Area] in Serum, Plasma or Blood by Creatinine-based formula (CKD-EPI) 01/22/2025 05:51:00 76 >=60 (mL/min) Final eGFR is calculated based on the CKD-EPI 2020 equation. Sodium 01/22/2025 05:51:00 125 Below low normal 135 -146 (mmol/L) Final Potassium 01/22/2025 05:51:00 3.7 3.5-5.1 (m mol/L) Final Cl 01/22/2025 05:51:00 96 Below low normal 98- 107 (mmol/L) Final CO2 01/22/2025 05:51:00 22 22-32 (mmo l/L) Final Anion gap 01/22/2025 05:51:00 7 7-15 (mmol /L) Final Glucose 01/22/2025 05:51:00 120 70-120 (mg /dL) Final Albumin 01/22/2025 05:51:00 2.2 Below low normal 3.8 -5.0 (g/dL) Final AST (Aspartate aminotransferase) 01/22/2025 05:51:00 61 Above high normal 10-50 (U/L) Final Alk Phos 01/22/2025 05:51:00 200 Above high normal 35 -130 (U/L) Final Bilirubin, Total 01/22/2025 05:51:00 2.9 Above high no rmal <=1.2 (mg/dL) Final Calcium 01/22/2025 05:51:00 8.1 Below low normal 8.4 -10.2 (mg/dL) Final Protein 01/22/2025 05:51:00 4.9 Below low normal 6.0 -8.3 (g/dL) Final ALT (Alanine aminotransferase) 01/22/2025 05:51:00 33 10-50 (U/L) Christian bundy Performing Location [facility] [place] - [address] [facility] [address]
--- OUTSIDE RECORDS SUMMARY | 2025-02-07 23:33 | External Medical Summary ---
Author Name Unknown Address Unknown Organization : Laboratory Report Ordering Provider Test Date Status ALESHA ROCHA 01/22/2025 11:27:11 Final Observation Date Value Abnormality Reference (Units ) Status Glucose Point of Care 01/22/2025 11:27:11 177 Above high normal 70-120 (mg/dL) Final Performing Location
--- OUTSIDE RECORDS SUMMARY | 2025-02-07 23:33 | External Medical Summary ---
Author Name Unknown Address Unknown Organization K01:LABORATORY [facility] [place] - [facility] [address] Laboratory Report Ordering Provider Test Date Status GAB DAWN 01/21/2025 15:32:00 Final Observation Date Value Abnormality Reference (Units ) Status WBC, Total 01/21/2025 15:32:00 5.11 4.00-10.80 (K/uL) Final RBC 01/21/2025 15:32:00 2.47 4.50-5.25 (M/uL) Final Hemoglobin 01/21/2025 15:32:00 8.2 Below low normal 14.0-16.8 (g/dL) Final HCT 01/21/2025 15:32:00 24.7 Below low normal 40.0-48.4 (%) Final MCV 01/21/2025 15:32:00 100.0 82.0-99.5 (fL) Final MCH 01/21/2025 15:32:00 33.2 27.0-34.0 (pg) Final MCHC 01/21/2025 15:32:00 33.2 32.0-36.0 (g/dL) Final RDW 01/21/2025 15:32:00 19.1 11.5-15.5 (%) Final Platelets 01/21/2025 15:32:00 46 Below low normal 140-400 (K/uL) Final MPV 01/21/2025 15:32:00 11.0 6.6-11.1 (fL) Final Nucleated erythrocytes/100 leukocytes [Ratio] in Blood by Automated count 01/21/2025 15:32:00 0 <=0 (/100 WBCs) Final Performing Location LABORATORY [facility] [place] - [address] [facility] [address]
--- OUTSIDE RECORDS SUMMARY | 2025-02-07 23:33 | External Medical Summary | Summary of Care ---
Author Name Unknown Organization [facility] Address [address] [place] [address] Phone [phone] Care Team Providers Care Senior Reservoir Engineer Name Role Phone Joann Collier MD Primary Care Provide r Reason for Visit * Reason Onset Date Comments Order Request 01/10/2025 Encounter Details Date Type Department Care Team (Late st Contact Info) Description 01/10/[address] [address] Joann Collier MD [address] [place] [address] [place] [address] Order Request Allergies Active Allergy Reactions Criticality [...] Hepatic encephalopathy 03/28/2022 Overview (12/06/2022): admitted [facility], ammonia 110 Nonrheumatic aortic valve stenosis 01/21/2022 [...] file Not on file Not on file 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 Put notes of what they want/need for insurance to cover on deck, will need to resubmitted to [facility] after * Telephone Encounter - Joann Collier MD - 01/24/2025 11:28 AM EDT Can we get more infor abt what they specifically requiring * Telephone Encounter - Fiorella Bates CMA - 01/24/2025 8:14 AM EDT Received message from [employer] through [employer] [facility]. "@Fiorella Btaes please have the [employer] [facility] progress notes signed and dated by the provider. The notes sent did not have the proper verbiage needed, the orders are on hold." You signed Office note and order on Monday before I [facility]. * Telephone Encounter - Fiorella Bates CMA - 01/22/2025 11:39 AM EDT Faxed orders to [facility] at [phone] * Telephone Encounter - Fiorella Bates CMA - 01/21/2025 7:49 AM EDT Message from [facility] "Your order is being processed Hi Fiorella Bates, Order [id number] for Lloyd Spencer (1965) is being fulfilled by [employer] ([place]). If you need assistance with this order, please call . We will send one more email notification once the order has been delivered." * Telephone Encounter - Fiorella Bates CMA - 01/16/2025 11:03 AM EDT [facility] * Telephone Encounter - Nery Mathews OSA - 01/16/2025 10:28 AM EDT Snow returning call- in regards to hospital bed and wheelchair. [facility] [place] [facility],however is agreeable to [facility] as well. Would like to get this taken care of as soon as possible. * Telephone Encounter - Susana Crenshaw RN - 01/14/2025 2:19 PM EDT I left a message for Snow to call us back after they check with his insurance to see who acceptsit If they do not know we could try to send this [facility] and let them check * [...] EDT Sent the orders and notes to [facility]. * Addendum Note - Joann Collier MD [...] 11:17 AM EDT Good Morning, Nurse at [facility] called on mutual patient to request an order for wheel chair and hospital bed. Please call patients sister Snow Spencer at [phone] to discuss. Thank you XIOMARA Maurer documented in this encounter Plan of Treatment Upcoming Encounters Date Type Department Care Team (Late st Contact Info) Description 02/04/2025 12:30 PM EDT Office Visit Gastroenterology, [facility] [address] [place] [phone] Ren Pineda CRNP [address] [place] [address] 03/10/2025 7:20 AM EDT Office Visit Family Medicine [address] [address] Joann Collier MD [address] [place] [address] [place] [address] 03/20/2025 10:30 AM EDT Office Visit Cardiology, [facility] [address] [place] [address] Chino Carrillo PA-C [address] [place] [address] 04/18/2025 10:30 AM EDT Office Visit Gastroenterology, [facility] [address] [place] [phone] Ren Pineda CRNP [address] [place] [address] 06/02/2025 10:00 AM EDT Office Visit Family Medicine [address] [place] [address] Joann Collier MD [address] [place] [address] [place] [address] 09/11/2025 2:00 PM EST Imaging Radiology [address] [place] [address] Scheduled Procedures Name Priority Associated Diagnoses Date/Ti [...] encounter Medical Devices Implanted Type Area Patient Account Specialist Device Identifier Shelf Expiration Date Model / Serial / Lot Lipiodol Injection - [id number] Implanted:Qty: 1 on [facility]02/2023 [facility] 04/28/2026 [address]145-18 [id number] Syr Pf 2ml Embospheres 100-300 - [id number] Implanted:Qty: 1 on 08/02/2023 at [facility] [employer] [id number] 02/26/2026 S220GH / / [id number] Syr Pf 2ml Embospheres 100-300 - [id number] Implanted:Qty: 1 on 04/11/2024 at [facility] [employer] [id number] 12/27/2026 S220GH / / [id number] Lipiodol Injection - [id number] Implanted:Qty: 1 on 04/11/2024 at [facility] [employer] [address]22 documented as of this encounter Visit Diagnoses [...] Directives occurred with: Patient Care Teams Senior Reservoir Engineer Relationship Specialty Start Date End Date Joann Collier MD [address] [place] [address] [place] [address] PCP - General Family Medicine 12/22/23 documented as of this encounter
--- OUTSIDE RECORDS SUMMARY | 2025-02-07 23:33 | External Medical Summary ---
Author Name Unknown Address Unknown Organization : Laboratory Report Ordering Provider Test Date Status ALESHA ROCHA 01/23/2025 11:32:16 Final Observation Date Value Abnormality Reference (Units ) Status Glucose Point of Care 01/23/2025 11:32:16 207 Above high normal 70-120 (mg/dL) Final Performing Location
--- OUTSIDE RECORDS SUMMARY | 2025-02-07 23:33 | External Medical Summary ---
Author Name Unknown Address Unknown Organization K01:LABORATORY [facility] [place] - [address] [place] [address] Laboratory Report Ordering Provider Test Date Status LÓPEZVIRICLAUDETTE 01/22/2025 05:51:00 Final Warfarin Therapy
INR: 2 .0-3.0 conventional anticoagulation
INR: 2.5- 3.5 high intensity anticoagulation Observation Date Value Abnormality Reference (Units ) Status PT 01/22/2025 05:51:00 22.4 Above high normal 11 .6-15.2 (seconds) Final INR 01/22/2025 05:51:00 1.9 Above high normal 0. 8-1.2 Final Performing Location LABORATORY [facility] [place] - [address] [place] [address]
--- OUTSIDE RECORDS SUMMARY | 2025-02-07 23:33 | External Medical Summary ---
Author Name Unknown Address Unknown Organization K01:LABORATORY [facility] - [address] [facility] [address] [facility] [address] Laboratory Report Ordering Provider Test Date Status LÓPEZVIRICLAUDETTE 01/23/2025 12:02:00 Final Observation Date Value Abnormality Reference (Units ) Status Potassium 01/23/2025 12:02:00 3.5 3.5-5.1 (m mol/L) Final Performing Location LABORATORY [facility] - [address] [facility] [address]
--- OUTSIDE RECORDS SUMMARY | 2025-02-07 23:33 | External Medical Summary | Summary of Care ---
Author Name Unknown Organization [facility] Address [address] [place] [address] Phone [phone] Care Team Providers Care Packaging Engineer Name Role Phone Joann Collier MD Primary Care Provide r Reason for Visit * Reason Onset Date Comments Order Request 01/10/2025 Encounter Details Date Type Department Care Team (Late st Contact Info) Description 01/10/[address] [address] Joann Collier MD [address] [place] [address] [place] [address] Order Request Allergies Active Allergy Reactions Criticality [...] (12/06/2022): admitted [facility], ammonia 110 Aortic [...] file Not on file Not on file 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 If you need assistance with this order, please call . We will send one more email notification once the order has been delivered." * Telephone Encounter - Fiorella Bates CMA - 01/16/2025 11:03 AM EDT Submitted order for hospital bed and wheelchair to [facility] * Telephone Encounter - Nery Mathews OSA - 01/16/2025 10:28 AM EDT Snow returning call- in regards to hospital bed and wheelchair. [facility] [place] [facility],however is agreeable to [facility] as well. Would like to get this taken care of as soon as possible. * Telephone Encounter - Susana Crenshaw RN - 01/14/2025 2:19 PM EDT I left a message for Snow to call us back after they check with his insurance to see who acceptsit If they do not know we could [facility] and let them check * Telephone [...] EDT Sent the orders and notes to [facility]. * Addendum Note - Joann Collier MD [...] 11:17 AM EDT Good Morning, Nurse at [facility] called on mutual patient to request an order for wheel chair and hospital bed. Please call patients sister Snow Spencer at [phone] to discuss. Thank you XIOMARA Maurer documented in this encounter Plan of Treatment Upcoming Encounters Date Type Department Care Team (Late st Contact Info) Description 02/04/2025 12:30 PM EDT Office Visit Gastroenterology, [facility] [address] [place] [phone] Ren Pineda CRNP [address] [place] [address] 03/10/2025 7:20 AM EDT Office Visit Family Medicine [address] [place] [address] Joann Collier MD [address] [place] [address] [place] [address] 03/20/2025 10:30 AM EDT Office Visit Cardiology, [facility] [address] [place] [phone] Chino Carrillo PA-C [address] [place] [address] 04/18/2025 10:30 AM EDT Office Visit Gastroenterology, [facility] [address] [place] [phone] Ren Pineda CRNP [address] [place] [address] 06/02/2025 10:00 AM EDT Office Visit Family Medicine [address] [place] [phone] Joann Collier MD [address] [place] [address] [place] [address] 09/11/2025 2:00 PM EST Imaging Radiology [address] [place] [address] Scheduled Procedures Name Priority Associated Diagnoses Date/Ti [...] 03/08/2021, Additional history exists HbA1c 06/05/2025 12/06/2024, 06/10/2023, 01/05/2024, Additional history exists Depression Screening 09/09/2025 [...] this encounter Medical Devices Implanted Type Area Die Designer Device Identifier Shelf Expiration Date Model / Serial / Lot Lipiodol Injection - [id number] Implanted:Qty: 1 on 08/02/20[address] at [facility] [address] 04/28/2026 [address] [id number] Syr Pf 2ml Embospheres 100-300 - [id number] Implanted:Qty: 1 on 08/02/2023 at [facility] [employer] [id number] 02/26/2026 S220GH / / [id number] Syr Pf 2ml Embospheres 100-300 - [id number] Implanted:Qty: 1 on 04/11/2024 at [facility] [employer] [id number] 12/27/2026 S220GH / / [id number] Lipiodol Injection - [id number] Implanted:Qty: 1 on 04/11/[address] [facility] [address] [address] documented as of this encounter Visit Diagnoses [...] Advance Directives occurred with: Patient Care Teams Packaging Engineer Relationship Specialty Start Date End Date Joann Collier MD [address] [place] [address] [place] [address] PCP - General Family Medicine 12/22/23 documented as of this encounter
--- OUTSIDE RECORDS SUMMARY | 2025-02-07 23:34 | External Medical Summary ---
Author Name Unknown Address Unknown Organization K01:LABORATORY C - [address] [place] [address] Laboratory Report Ordering Provider Test Date Status GAB DAWN 01/21/2025 06:50:00 Final Observation Date Value Abnormality Reference (Units ) Status Phosphate 01/21/2025 06:50:00 2.5 2.5-4.8 (m g/dL) Final Performing Location LABORATORY [facility] - [address] [place] [address]
--- OUTSIDE RECORDS SUMMARY | 2025-02-07 23:34 | External Medical Summary ---
Author Name Unknown Address Unknown Organization K01:LABORATORY [facility] [place] - [address] [facility] [place] [address] Laboratory Report Ordering Provider Test Date Status TARYN NIEVES 01/18/2025 09:15:00 Final Observation Date Value Abnormality Reference (Units ) Status BUN 01/18/2025 09:15:00 15 6-20 (mg/dL) Final Creatinine 01/18/2025 09:15:00 0.9 0.6-1.2 (mg/dL) Final Glomerular filtration rate/1.73 sq M.predicted [Volume Rate/Area] in Serum, Plasma or Blood by Creatinine-based formula (CKD-EPI) 01/18/2025 09:15:00 >90 >=60 (mL/min) Final eGFR is calculated based on the CKD-EPI 2020 equation. Sodium 01/18/2025 09:15:00 122 Below low normal 135 -146 (mmol/L) Final Potassium 01/18/2025 09:15:00 3.7 3.5-5.1 (m mol/L) Final Cl 01/18/2025 09:15:00 91 Below low normal 98- 107 (mmol/L) Final CO2 01/18/2025 09:15:00 23 22-32 (mmo l/L) Final Anion gap 01/18/2025 09:15:00 8 7-15 (mmol /L) Final Glucose 01/18/2025 09:15:00 164 Above high normal 70 -120 (mg/dL) Final Albumin 01/18/2025 09:15:00 2.2 Below low normal 3.8 -5.0 (g/dL) Final AST (Aspartate aminotransferase) 01/18/2025 09:15:00 65 Above high normal 10-50 (U/L) Final Alk Phos 01/18/2025 09:15:00 187 Above high normal 35 -130 (U/L) Final Bilirubin, Total 01/18/2025 09:15:00 1.8 Above high no rmal <=1.2 (mg/dL) Final Calcium 01/18/2025 09:15:00 7.8 Below low normal 8.4 -10.2 (mg/dL) Final Protein 01/18/2025 09:15:00 4.9 Below low normal 6.0 -8.3 (g/dL) Final ALT (Alanine aminotransferase) 01/18/2025 09:15:00 41 10-50 (U/L) Christian bundy Performing Location LABORATORY [facility] - [address] [facility] [address]
--- OUTSIDE RECORDS SUMMARY | 2025-02-07 23:34 | External Medical Summary ---
Author Name Unknown Address Unknown Organization K01:LABORATORY C - [address] [place] [address] Laboratory Report Ordering Provider Test Date Status TARYN NIEVES 01/18/2025 09:15:00 Final Observation Date Value Abnormality Reference (Units ) Status Magnesium 01/18/2025 09:15:00 1.9 1.5-2.6 (m g/dL) Final Performing Location LABORATORY [facility] - [address] [place] [address]
--- OUTSIDE RECORDS SUMMARY | 2025-02-07 23:34 | External Medical Summary | Summary of Care ---
Author Name Unknown Organization [facility] Address [address] [place] [address] Phone [phone] Care Team Providers Care Hot Strip Mill Inspector Name Role Phone Krystian Palomo MD Primary Care Provide r Reason for Referral * Evaluate & Treat - Unlimited Visits (Within 30 days (routine)) - Pending Review Specialty Diagnoses / Procedures Referred By Liliana harley Referred To Contact Gastroenterology Diagnoses Cirrhosis of liver with ascites, unspecified hepatic cirrhosis type (HCC) HCC (hepatocellular carcinoma) (HCC) Maira Pineda CRNP [address] [place] [address] Phone: tel: fax: Referral ID Status Reason Start Date Expiration Date Visits Requested Visits Authorized [id number] Pending Review Specialty Services Required 01/17/[phone] Question Answer Referral Priority Within 30 days (routine) Where should this appointment be scheduled? [facility] For what condition is the patient being referred? Liver conditions Comments GONZALES cirrhosis w HCC, ascites, pleural effusion, SBP, EV, Hep Enceph, recent hospitalization. Reason for Visit * Reason Onset Date Comments Referral 01/17/2025 Encounter Details Date Type Department Care Team (Late st Contact Info) Description 01/17/2025 Telephone Gastroenterology, [facility] [address] [facility] [place] [address] Maira Pineda CRNP [address] [place] [address] Referral Allergies Active Allergy Reactions Criticality Noted Date Comments Aspirin 01/28/2022 Other reaction(s): bloody nose Salicylates 08/08/2001 nose bleeds documented as of this encounter (statuses as of 01/17/2025) Medications Multivitamin Adult Oral Tablet daily . 10/12/20 Suspended Vitamin C 1000 MG Oral Tablet daily . 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 * Telephone Encounter - Catie Torre OSA - 01/17/2025 12:32 PM EDT Maira, it looks like this pt was never seen by Hepatology. Pt canceled his appt with Jayla on 01/15/25. Can you please place a new referral. I do not see one in the chart for pt to be seen by Hepatology Thank you XIOMARA Domingo 01/17/2025 12:33 PM documented in this encounter Plan of Treatment Upcoming Encounters Date Type Department Care Team (Late st Contact Info) Description 01/23/2025 3:00 PM EDT Office Visit Pharmacy, [address] [place] [address] [place] [address] 02/04/2025 12:30 PM EDT Office Visit Gastroenterology, [facility] [address] [place] [phone] Maira Pineda CRNP [address] [place] [address] 03/10/2025 7:20 AM EDT Office Visit Family [address] [place] [phone] Krystian Palomo MD [address] [place] [address] [place] [address] 03/20/2025 10:30 AM EDT Office Visit Cardiology, [facility] [address] [place] [phone] Chino Carrillo PA-C [address] [place] [address] 04/18/2025 10:30 AM EDT Office Visit Gastroenterology, [facility] [address] [place] [phone] Maira Pineda CRNP [address] [place] [address] 06/02/2025 10:00 AM EDT Office Visit Family Medicine [address] [place] [phone] Krystian Palomo MD [address] [place] [address] [place] [address] 09/11/2025 2:00 PM EST Imaging Radiology [address] [place] [address] Scheduled Procedures Name Priority Associated Diagnoses Date/Ti me ESOPHAGOGASTRODUODENOSCOPY ( EGD), FLEXIBLE, TRANSORAL, DIAGNOSTIC Recall Portal hypertensive gastropathy (HCC) COLONOSCOPY FLEXIBLE PROXIMAL DIAGNOSTIC Recall Family history of colon cancer Scheduled Referrals Name Type Priority Associated Diagnoses Orde r Schedule HEPATOLOGY REFERRAL OP Referral Within 30 days (routine) Cirrhosis of liver with ascites, unspecified hepatic cirrhosis type (HCC) HCC (hepatocellular carcinoma) (HCC) Ordered: 01/17/2025 Health Maintenance Due Date Last Done Comments [...] history exists Depression Screening 09/09/2025 09/09/2024 GFR 01/17/2026 01/17/2025, 12/29, 01/15/2025, Additional history exists Lipid Panel 09/18/2028 09/18/2023, [...] this encounter Medical Devices Implanted Type Area Wedding Designer Device Identifier Shelf Expiration Date Model / Serial / Lot Lipiodol Injection - [id number] Implanted:Qty: 1 on [facility]2023 [facility] 04/28/2026 [address]88 \\[id number] Syr Pf 2ml Embospheres 100-300 - [id number] Implanted:Qty: 1 on 08/02/2023 [facility] [id number] 02/26/2026 S220GH / / [id number] Syr Pf 2ml Embospheres 100-300 - [id number] Implanted:Qty: 1 on 04/11/2024 at [facility] [employer] [id number] 12/27/2026 S220GH / / [id number] Lipiodol Injection - [id number] Implanted:Qty: 1 on 04/11/2024 at [facility] [employer] [id number] documented as of this encounter Visit Diagnoses Diagnosis Cirrhosis of liver with ascites, unspecified hepatic cirrhosis type (HCC)- Primary HCC (hepatocellular carcinoma) (HCC) Malignant [...] Advance Directives occurred with: Patient Care Teams Hot Strip Mill Inspector Relationship Specialty Start Date End Date Krystian Palomo MD [address] [place] [address] [place] [address] PCP - General Family Medicine 12/22/23 documented as of this encounter
--- OUTSIDE RECORDS SUMMARY | 2025-02-07 23:34 | External Medical Summary ---
Author Name Unknown Address Unknown Organization K01:[place] [place] [facility] [address] [facility] [address] [facility] [address] Laboratory Report Ordering Provider Test Date Status ROSITA DEL ANGEL 01/20/2025 06:44:00 Final Observation Date Value Abnormality Reference (Units ) Status WBC, Total 01/20/2025 06:44:00 5.54 4.00-10.80 (K/uL) Final RBC 01/20/2025 06:44:00 2.17 4.50-5.25 (M/uL) Final Hemoglobin 01/20/2025 06:44:00 7.2 Below low normal 14.0-16.8 (g/dL) Final HCT 01/20/2025 06:44:00 21.7 Below low normal 40.0-48.4 (%) Final MCV 01/20/2025 06:44:00 100.0 82.0-99.5 (fL) Final MCH 01/20/2025 06:44:00 33.2 27.0-34.0 (pg) Final MCHC 01/20/2025 06:44:00 33.2 32.0-36.0 (g/dL) Final RDW 01/20/2025 06:44:00 20.1 11.5-15.5 (%) Final Platelets 01/20/2025 06:44:00 54 Below low normal 140-400 (K/uL) Final MPV 01/20/2025 06:44:00 9.9 6.6-11.1 (fL) Final Nucleated erythrocytes/100 leukocytes [Ratio] in Blood by Automated count 01/20/2025 06:44:00 0 <=0 (/100 WBCs) Final Performing Location [facility] [place] [address] [facility] [address]
--- OUTSIDE RECORDS SUMMARY | 2025-02-07 23:34 | External Medical Summary | Summary of Care ---
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 If you need assistance with this order, please call . We will send one more email notification once the order has been delivered." * Telephone Encounter - Fiorella Btaes CMA - 01/16/2025 11:03 AM EDT Submitted order for hospital bed and wheelchair to [facility] * Telephone Encounter - Nery Mathews OSA - 01/16/2025 10:28 AM EDT Snow returning call- in regards to hospital bed and wheelchair. [facility] [place] is agreeable to [facility] as well. Would like to get this taken care of as soon as possible. * Telephone Encounter - Susana Crenshaw RN - 01/14/2025 2:19 PM EDT I left a message for Snow to call us back after they check with his insurance to see who acceptsit If they do not know we could [facility] and let them check * [...] EDT Sent the orders and notes to [facility]. * Addendum Note - Joann Collier [...] 11:17 AM EDT Good Morning, Nurse at [facility] called on mutual patient to request an order for wheel chair and hospital bed. Please call patients sister Snow Spencer at [phone] to discuss. Thank you XIOMARA Maurer documented in this encounter Plan of Treatment Upcoming Encounters Date Type Department Care Team (Late st Contact Info) Description 02/04/2025 12:30 PM EDT Office Visit Gastroenterology, [facility] [address] [place] [phone] Ren Pineda CRNP [address] [place] [address] 03/10/2025 7:20 AM EDT Office Visit Family Medicine [address] [place] [phone] Joann Collier MD [address] [place] [address] [place] [phone] 03/20/2025 10:30 AM EDT Office Visit Cardiology, [facility] [address] [place] [phone] Chino Carrillo PA-C [address] [place] [address] 04/18/2025 10:30 AM EDT Office Visit Gastroenterology, [facility] [address] [place] [phone] Ren Pineda CRNP [address] [place] [address] 06/02/2025 10:00 AM EDT Office Visit Family Medicine [address] [place] [phone] Joann Collier MD [address] [place] [address] [place] [address] 09/11/2025 2:00 PM EST Imaging Radiology [address] [place] [address] Scheduled Procedures Name Priority Associated Diagnoses Date/Ti [...] this encounter Medical Devices Implanted Type Area Agent Contract Clerk Device Identifier Shelf Expiration Date Model / Serial / Lot Lipiodol Injection - [id number] Implanted:Qty: 1 on 08/02/2023 at [facility] [employer] 04/28/2026 [id number] Syr Pf 2ml Embospheres 100-300 - [id number] Implanted:Qty: 1 on 08/02/2023 at [facility] [employer] [id number] 02/26/2026 S220GH / / [id number] Syr Pf 2ml Embospheres 100-300 - [id number] Implanted:Qty: 1 on 04/11/2024 at [facility] [employer] [id number] 12/27/2026 S220GH / / [id number] Lipiodol Injection - [id number] Implanted:Qty: 1 on 04/11/2024 at [facility] [employer] [id number] documented as of this encounter Visit Diagnoses [...] Advance Directives occurred with: Patient Care Teams Mig Welder Relationship Specialty Start Date End Date Joann Collier MD [address] [place] [address] [place] [address] PCP - General Family Medicine 12/22/23 documented as of this encounter
--- OUTSIDE RECORDS SUMMARY | 2025-02-07 23:34 | External Medical Summary ---
Author Name Unknown Address Unknown Organization : Laboratory Report Ordering Provider Test Date Status PEGGY MORALES 01/21/2025 11:47:54 Final Observation Date Value Abnormality Reference (Units ) Status Glucose Point of Care 01/21/2025 11:47:54 122 Above high normal 70-120 (mg/dL) Final Performing Location
--- OUTSIDE RECORDS SUMMARY | 2025-02-07 23:34 | External Medical Summary ---
Author Name Unknown Address Unknown Organization : Laboratory Report Ordering Provider Test Date Status PEGGY MORALES 01/18/2025 20:45:18 Final Observation Date Value Abnormality Reference (Units ) Status Glucose Point of Care 01/18/2025 20:45:18 142 Above high normal 70-120 (mg/dL) Final Performing Location
--- OUTSIDE RECORDS SUMMARY | 2025-02-07 23:34 | External Medical Summary ---
Author Name Unknown Address Unknown Organization : Laboratory Report Ordering Provider Test Date Status PEGGY MORALES 01/18/2025 16:27:45 Final Observation Date Value Abnormality Reference (Units ) Status Glucose Point of Care 01/18/2025 16:27:45 172 Above high normal 70-120 (mg/dL) Final Performing Location
--- OUTSIDE RECORDS SUMMARY | 2025-02-07 23:34 | External Medical Summary ---
Author Name Unknown Address Unknown Organization K01:[facility] - [address] [place] [address] Laboratory Report Ordering Provider Test Date Status JOSEPH ROE 01/21/2025 08:17:00 Final Observation Date Value Abnormality Reference (Units ) Status ABO 01/21/2025 08:17:00 A Final RH 01/21/2025 08:17:00 Positive Final RED BLOOD CELL ANTIBODY SCREEN 01/21/2025 08:17:00 Negative Final SPECIMEN EXPIRATION DATE 01/21/2025 08:17:00 01/24/2025 23:59 Final Performing Location [facility] - [address] [place] [address]
--- OUTSIDE RECORDS SUMMARY | 2025-02-07 23:34 | External Medical Summary ---
Author Name Unknown Address Unknown Organization K01:[facility] [place] [address] [facility] [address] Laboratory Report Ordering Provider Test Date Status TARYN NIEVES 01/18/2025 09:15:00 Final Observation Date Value Abnormality Reference (Units ) Status Phosphate 01/18/2025 09:15:00 2.3 Below low normal 2.5 -4.8 (mg/dL) Final Performing Location LAB[facility]ATORY [facility] - [address] [place] [address]
--- OUTSIDE RECORDS SUMMARY | 2025-02-07 23:34 | External Medical Summary ---
Author Name Unknown Address Unknown Organization : Laboratory Report Ordering Provider Test Date Status PEGGY MORALES 01/20/2025 16:37:43 Final Observation Date Value Abnormality Reference (Units ) Status Glucose Point of Care 01/20/2025 16:37:43 156 Above high normal 70-120 (mg/dL) Final Performing Location
--- OUTSIDE RECORDS SUMMARY | 2025-02-07 23:34 | External Medical Summary ---
Author Name Unknown Address Unknown Organization K01:LABORATORY [facility] - [address] [place] [address] Laboratory Report Ordering Provider Test Date Status GAB DAWN 01/21/2025 06:50:00 Final Observation Date Value Abnormality Reference (Units ) Status Magnesium 01/21/2025 06:50:00 1.9 1.5-2.6 (m g/dL) Final Performing Location LAB[facility] - [address] [place] [address]
--- OUTSIDE RECORDS SUMMARY | 2025-02-07 23:34 | External Medical Summary ---
Author Name Unknown Address Unknown Organization K01:[facility]ORY [facility] [place] - [address] [facility] [place] [address] Laboratory Report Ordering Provider Test Date Status TARYN NIEVES 01/19/2025 08:04:00 Final Observation Date Value Abnormality Reference (Units ) Status BUN 01/19/2025 08:04:00 15 6-20 (mg/dL) Final Creatinine 01/19/2025 08:04:00 1.0 0.6-1.2 (mg/dL) Final Glomerular filtration rate/1.73 sq M.predicted [Volume Rate/Area] in Serum, Plasma or Blood by Creatinine-based formula (CKD-EPI) 01/19/2025 08:04:00 83 >=60 (mL/min) Final eGFR is calculated based on the CKD-EPI 2020 equation. Sodium 01/19/2025 08:04:00 120 Below low normal 135 -146 (mmol/L) Final Potassium 01/19/2025 08:04:00 3.6 3.5-5.1 (m mol/L) Final Cl 01/19/2025 08:04:00 89 Below low normal 98- 107 (mmol/L) Final CO2 01/19/2025 08:04:00 22 22-32 (mmo l/L) Final Anion gap 01/19/2025 08:04:00 9 7-15 (mmol /L) Final Glucose 01/19/2025 08:04:00 119 70-120 (mg /dL) Final Albumin 01/19/2025 08:04:00 2.1 Below low normal 3.8 -5.0 (g/dL) Final AST (Aspartate aminotransferase) 01/19/2025 08:04:00 75 Above high normal 10-50 (U/L) Final Alk Phos 01/19/2025 08:04:00 211 Above high normal 35 -130 (U/L) Final Bilirubin, Total 01/19/2025 08:04:00 2.0 Above high no rmal <=1.2 (mg/dL) Final Calcium 01/19/2025 08:04:00 7.8 Below low normal 8.4 -10.2 (mg/dL) Final Protein 01/19/2025 08:04:00 5.0 Below low normal 6.0 -8.3 (g/dL) Final ALT (Alanine aminotransferase) 01/19/2025 08:04:00 43 10-50 (U/L) Christian bundy Performing Location LABORATORY [facility] - [address] [facility] [address]
--- OUTSIDE RECORDS SUMMARY | 2025-02-07 23:34 | External Medical Summary ---
Author Name Unknown Address Unknown Organization : Laboratory Report Ordering Provider Test Date Status PEGGY MORALES 01/20/2025 07:39:07 Final Observation Date Value Abnormality Reference (Units ) Status Glucose Point of Care 01/20/2025 07:39:07 100 70-120 (mg/dL) Final Performing Location
--- OUTSIDE RECORDS SUMMARY | 2025-02-07 23:34 | External Medical Summary ---
Author Name Unknown Address Unknown Organization K01:[facility] [place] [address] [place] [address] Laboratory Report Ordering Provider Test Date Status GAB DAWN 01/20/2025 06:44:00 Final Warfarin Therapy
INR: 2 .0-3.0 conventional anticoagulation
INR: 2.5- 3.5 high intensity anticoagulation Observation Date Value Abnormality Reference (Units ) Status PT 01/20/2025 06:44:00 21.9 Above high normal 11 .6-15.2 (seconds) Final INR 01/20/2025 06:44:00 1.9 Above high normal 0. 8-1.2 Final Performing Location [facility] [place] [address] [place] [address]
--- OUTSIDE RECORDS SUMMARY | 2025-02-07 23:34 | External Medical Summary ---
Author Name Unknown Address Unknown Organization : Laboratory Report Ordering Provider Test Date Status PEGGY MORALES 01/19/2025 07:21:05 Final Observation Date Value Abnormality Reference (Units ) Status Glucose Point of Care 01/19/2025 07:21:05 128 Above high normal 70-120 (mg/dL) Final Performing Location
--- OUTSIDE RECORDS SUMMARY | 2025-02-07 23:34 | External Medical Summary ---
Author Name Unknown Address Unknown Organization : Laboratory Report Ordering Provider Test Date Status PEGGY MORALES 01/20/2025 12:00:38 Final Observation Date Value Abnormality Reference (Units ) Status Glucose Point of Care 01/20/2025 12:00:38 124 Above high normal 70-120 (mg/dL) Final Performing Location
--- OUTSIDE RECORDS SUMMARY | 2025-02-07 23:34 | External Medical Summary ---
Author Name Unknown Address Unknown Organization K01:[facility]ORY [facility] [place] - [facility] [address] [place], [place] [address] Laboratory Report Ordering Provider Test Date Status ROSITA DEL ANGEL 01/21/2025 06:50:00 Final Observation Date Value Abnormality Reference (Units ) Status WBC, Total 01/21/2025 06:50:00 4.36 4.00-10.80 (K/uL) Final RBC 01/21/2025 06:50:00 2.04 4.50-5.25 (M/uL) Final Hemoglobin 01/21/2025 06:50:00 6.8 Below low normal 14.0-16.8 (g/dL) Final HCT 01/21/2025 06:50:00 20.6 Below low normal 40.0-48.4 (%) Final MCV 01/21/2025 06:50:00 101.0 82.0-99.5 (fL) Final MCH 01/21/2025 06:50:00 33.3 27.0-34.0 (pg) Final MCHC 01/21/2025 06:50:00 33.0 32.0-36.0 (g/dL) Final RDW 01/21/2025 06:50:00 19.9 11.5-15.5 (%) Final Platelets 01/21/2025 06:50:00 49 Below low normal 140-400 (K/uL) Final MPV 01/21/2025 06:50:00 10.2 6.6-11.1 (fL) Final Nucleated erythrocytes/100 leukocytes [Ratio] in Blood by Automated count 01/21/2025 06:50:00 0 <=0 (/100 WBCs) Final Performing Location LAB[facility]ORY [facility] - [address] [place], [place] [address]
--- OUTSIDE RECORDS SUMMARY | 2025-02-07 23:34 | External Medical Summary | Summary of Care ---
Author Name Unknown Organization [facility] Address [address] [place] [address] Phone [phone] Care Team Providers Care Pedicurist Name Role Phone Krystian Palomo MD Primary Care Provide r Reason for Visit * Auth/Cert Specialty Diagnoses / Procedures Referred By Liliana harley Referred To Contact Diagnoses Ascites Ascites Stanford Heath, DO [address] [facility] [place] [address] Phone: tel: fax: Admissions, [facility] [address] [place] [address] Referral ID Status Reason Start Date Expiration Date Visits Re quested Visits Authorized [id number] Encounter Details Date Type Department Care Team (Latest Contact Info) Description 01/16/2025 9:02 AM EDT - 01/16/2025 11:59 PM EDT Hospital Encounter Cardiac Studies [facility] [address], [place] [id number] Discharge Disposition: Home - Self Care Allergies [...] Active Problems Problem Noted Date Diagnosed Date Decompensated hepatic cirrhosis 01/14/2025 Recurrent pleural effusion [...] file Not on file 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 Not on file Not [...] Daria Boucher RN documented in this encounter Plan of Treatment Upcoming Encounters Date Type Department Care Team (Late st Contact Info) Description 01/23/2025 3:00 PM EDT Office Visit Pharmacy, [address] [place] [address] [place] [address] 02/04/2025 12:30 PM EDT Office Visit Gastroenterology, [facility] [address] [place] [phone] Ren Pineda CRNP [address] [place] [address] 03/10/2025 7:20 AM EDT Office Visit [address] [place] [phone] Krystian Palomo MD [address] [place] [address] [place] [address] 03/20/2025 10:30 AM EDT Office Visit Cardiology, [facility] [address] [place] [phone] Chino Carrillo PA-C [address] [place] [address] 04/18/2025 10:30 AM EDT Office Visit Gastroenterology, [facility] [address] [place] [phone] Ren Pineda CRNP [address] [place] [address] 06/02/2025 10:00 AM EDT Office Visit [address] [place] [phone] Krystian Palomo MD [address] [place] [address] [place] [address] 09/11/2025 2:00 PM EST Imaging Radiology [address] [place] [address] Scheduled Procedures Name Priority Associated Diagnoses Date/Ti [...] this encounter Medical Devices Implanted Type Area Shake Table Operator Device Identifier Shelf Expiration Date Model / Serial / Lot Lipiodol Injection - [id number] Implanted:Qty: 1 on 08/02/2023 at [facility] [employer] 04/28/2026 [id number] Syr Pf 2ml Embospheres 100-300 - [id number] Implanted:Qty: 1 on 08/02/[address] [facility] [address] [employer] [id number] 02/26/2026 S220GH / / [id number] Syr Pf 2ml Embospheres 100-300 - [id number] Implanted:Qty: 1 on 04/11/2024 at [facility] [employer] [id number] 12/27/2026 S220GH / / [id number] Lipiodol Injection - [id number] Implanted:Qty: 1 on 04/11/2024 at [facility] [employer] [id number] / documented as of this encounter Procedures Procedure Name Priority Date/Time Associated Diagnosis Comments ECHO, COMPLETE (2D), TRANS-THORACIC Routine 01/16/2025 10:27 AM EDT Valvular insufficiency documented in this encounter Visit Diagnoses Diagnosis Recurrent pleural effusion on left- Primary Unspecified pleural effusion Decompensated hepatic cirrhosis (HCC) Hepatocellular carcinoma (HCC) Malignant neoplasm of liver, primary 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 Aortic stenosis, moderate Aortic valve disorders Chronic idiopathic gout involving toe without tophus, unspecified laterality HTN, goal below 140/90 Unspecified essential hypertension documented in this encounter Administered Medications Inactive Administered Medications - up to 3 most recent administrations Medication Order MAR Action Action Date Dose Rate Site perflutren lipid microsphere inj SUSP 1.956 mg 1.956 mg, Intravenous, ONCE PRN Other, For Echo Only - Suboptimal Echo Images, Starting on Kayleigh 01/16/25 at 1019, Until Kayleigh 01/16/25 at 1218, For 2 hours, Administer IVP over 45 seconds, Cardiac Studies_HODHOVIndications:Recur rent pleural effusion on left,Decompensated hepatic cirrhosis (HCC),Hepatocellular carcinoma (HCC),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
--- OUTSIDE RECORDS SUMMARY | 2025-02-07 23:34 | External Medical Summary ---
Author Name Unknown Address Unknown Organization : Laboratory Report Ordering Provider Test Date Status PEGGY MORALES 01/18/2025 07:23:35 Final Observation Date Value Abnormality Reference (Units ) Status Glucose Point of Care 01/18/2025 07:23:35 191 Above high normal 70-120 (mg/dL) Final Performing Location
--- OUTSIDE RECORDS SUMMARY | 2025-02-07 23:34 | External Medical Summary ---
Author Name Unknown Address Unknown Organization K01:[facility] [place] [address] [facility] [place] [address] Laboratory Report Ordering Provider Test Date Status TARYN NIEVES 01/21/2025 06:50:00 Final Observation Date Value Abnormality Reference (Units ) Status BUN 01/21/2025 06:50:00 15 6-20 (mg/dL) Final Creatinine 01/21/2025 06:50:00 1.2 0.6-1.2 (mg/dL) Final Glomerular filtration rate/1.73 sq M.predicted [Volume Rate/Area] in Serum, Plasma or Blood by Creatinine-based formula (CKD-EPI) 01/21/2025 06:50:00 68 >=60 (mL/min) Final eGFR is calculated based on the CKD-EPI 2020 equation. Sodium 01/21/2025 06:50:00 127 Below low normal 135 -146 (mmol/L) Final Potassium 01/21/2025 06:50:00 3.5 3.5-5.1 (m mol/L) Final Cl 01/21/2025 06:50:00 95 Below low normal 98- 107 (mmol/L) Final CO2 01/21/2025 06:50:00 21 Below low normal 22- 32 (mmol/L) Final Anion gap 01/21/2025 06:50:00 11 7-15 (mmol /L) Final Glucose 01/21/2025 06:50:00 164 Above high normal 70 -120 (mg/dL) Final Albumin 01/21/2025 06:50:00 2.4 Below low normal 3.8 -5.0 (g/dL) Final AST (Aspartate aminotransferase) 01/21/2025 06:50:00 56 Above high normal 10-50 (U/L) Final Alk Phos 01/21/2025 06:50:00 181 Above high normal 35 -130 (U/L) Final Bilirubin, Total 01/21/2025 06:50:00 1.7 Above high no rmal <=1.2 (mg/dL) Final Calcium 01/21/2025 06:50:00 7.9 Below low normal 8.4 -10.2 (mg/dL) Final Protein 01/21/2025 06:50:00 4.8 Below low normal 6.0 -8.3 (g/dL) Final ALT (Alanine aminotransferase) 01/21/2025 06:50:00 35 10-50 (U/L) Christian bundy Performing Location LAB[facility]ORY [facility] [place] - [address] [facility] [address]
--- OUTSIDE RECORDS SUMMARY | 2025-02-07 23:34 | External Medical Summary ---
Author Name Unknown Address Unknown Organization : Laboratory Report Ordering Provider Test Date Status PEGGY MORALES 01/19/2025 21:08:58 Final Observation Date Value Abnormality Reference (Units ) Status Glucose Point of Care 01/19/2025 21:08:58 153 Above high normal 70-120 (mg/dL) Final Performing Location
--- OUTSIDE RECORDS SUMMARY | 2025-02-07 23:34 | External Medical Summary ---
Author Name Unknown Address Unknown Organization : Laboratory Report Ordering Provider Test Date Status PEGGY MORALES 01/18/2025 11:24:07 Final Observation Date Value Abnormality Reference (Units ) Status Glucose Point of Care 01/18/2025 11:24:07 204 Above high normal 70-120 (mg/dL) Final Performing Location
--- OUTSIDE RECORDS SUMMARY | 2025-02-07 23:34 | External Medical Summary ---
Author Name Unknown Address Unknown Organization K01:[facility] [place] - [facility] [address] Laboratory Report Ordering Provider Test Date Status TARYN NIEVES 01/18/2025 09:15:00 Final Observation Date Value Abnormality Reference (Units ) Status WBC, Total 01/18/2025 09:15:00 5.81 4.00-10.80 (K/uL) Final RBC 01/18/2025 09:15:00 2.40 4.50-5.25 (M/uL) Final Hemoglobin 01/18/2025 09:15:00 8.0 Below low normal 14.0-16.8 (g/dL) Final HCT 01/18/2025 09:15:00 24.3 Below low normal 40.0-48.4 (%) Final MCV 01/18/2025 09:15:00 101.3 82.0-99.5 (fL) Final MCH 01/18/2025 09:15:00 33.3 27.0-34.0 (pg) Final MCHC 01/18/2025 09:15:00 32.9 32.0-36.0 (g/dL) Final RDW 01/18/2025 09:15:00 20.7 11.5-15.5 (%) Final Platelets 01/18/2025 09:15:00 78 Below low normal 140-400 (K/uL) Final MPV 01/18/2025 09:15:00 10.0 6.6-11.1 (fL) Final Nucleated erythrocytes/100 leukocytes [Ratio] in Blood by Automated count 01/18/2025 09:15:00 0 <=0 (/100 WBCs) Final Performing Location LAB[facility]ORY [facility] [place] - [address] [facility] [address]
--- OUTSIDE RECORDS SUMMARY | 2025-02-07 23:34 | External Medical Summary ---
Author Name Unknown Address Unknown Organization : Laboratory Report Ordering Provider Test Date Status PEGGY MORALES 01/19/2025 11:51:24 Final Observation Date Value Abnormality Reference (Units ) Status Glucose Point of Care 01/19/2025 11:51:24 200 Above high normal 70-120 (mg/dL) Final Performing Location
--- OUTSIDE RECORDS SUMMARY | 2025-02-07 23:34 | External Medical Summary ---
Author Name Unknown Address Unknown Organization K01:LAB[facility]ATORY [facility] [place] - [address] [facility] [place] [address] Laboratory Report Ordering Provider Test Date Status TARYN NIEVES 01/20/2025 06:44:00 Final Observation Date Value Abnormality Reference (Units ) Status BUN 01/20/2025 06:44:00 15 6-20 (mg/dL) Final Creatinine 01/20/2025 06:44:00 1.1 0.6-1.2 (mg/dL) Final Glomerular filtration rate/1.73 sq M.predicted [Volume Rate/Area] in Serum, Plasma or Blood by Creatinine-based formula (CKD-EPI) 01/20/2025 06:44:00 79 >=60 (mL/min) Final eGFR is calculated based on the CKD-EPI 2020 equation. Sodium 01/20/2025 06:44:00 123 Below low normal 135 -146 (mmol/L) Final Potassium 01/20/2025 06:44:00 3.6 3.5-5.1 (m mol/L) Final Cl 01/20/2025 06:44:00 92 Below low normal 98- 107 (mmol/L) Final CO2 01/20/2025 06:44:00 22 22-32 (mmo l/L) Final Anion gap 01/20/2025 06:44:00 9 7-15 (mmol /L) Final Glucose 01/20/2025 06:44:00 111 70-120 (mg /dL) Final Albumin 01/20/2025 06:44:00 2.4 Below low normal 3.8 -5.0 (g/dL) Final AST (Aspartate aminotransferase) 01/20/2025 06:44:00 64 Above high normal 10-50 (U/L) Final Alk Phos 01/20/2025 06:44:00 189 Above high normal 35 -130 (U/L) Final Bilirubin, Total 01/20/2025 06:44:00 1.9 Above high no rmal <=1.2 (mg/dL) Final Calcium 01/20/2025 06:44:00 7.8 Below low normal 8.4 -10.2 (mg/dL) Final Protein 01/20/2025 06:44:00 5.0 Below low normal 6.0 -8.3 (g/dL) Final ALT (Alanine aminotransferase) 01/20/2025 06:44:00 38 10-50 (U/L) Christian bundy Performing Location LABORATORY [facility] [place] - [address] [facility] [address]
--- OUTSIDE RECORDS SUMMARY | 2025-02-07 23:34 | External Medical Summary | Summary of Care ---
Author Name Unknown Organization [facility] Address [address] [place] [address] Phone [phone] Care Team Providers Care Water Pollution Control Technician Name Role Phone Krystian Palomo MD Primary Care Provide r Reason for Referral * Evaluate & Treat - Unlimited Visits (Within 30 days (routine)) - Pending Review Specialty Diagnoses / Procedures Referred By Liliana harley Referred To Contact Gastroenterology Diagnoses Cirrhosis of liver with ascites, unspecified hepatic cirrhosis type (HCC) HCC (hepatocellular carcinoma) (HCC) Maira Pineda CRNP [address] [place] [address] Phone: tel: fax: Referral ID Status Reason Start Date Expiration Date Visits Requested Visits Authorized [id number] Pending Review Specialty Services Required 01/17/2025 999 [...] st Contact Info) Description 01/17/2025 Telephone Gastroenterology, [facility] [address] [facility] [place] [address] Maira Pineda CRNP [address] [place] [address] Referral Allergies Active Allergy Reactions Criticality Noted [...] 03/28/2022 Overview (12/06/2022): admitted [facility], ammonia [...] file Not on file 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 Not on file [...] that the pt is currently admitted in [place] with decompensated hepatic cirrhosis XIOMARA Domingo 01/17/2025 [...] 01/23/2025 3:00 PM EDT Office Visit Pharmacy, [address] [place] [address] [place] [address] 02/04/2025 12:30 PM EDT Office Visit Gastroenterology, [facility] [address] [place] [phone] Maira Pineda CRNP [address] [place] [address] 03/10/2025 7:20 AM EDT Office Visit Family [address] [place] [phone] Krystian Palomo MD [address] [place] [address] [place] [address] 03/20/2025 10:30 AM EDT Office Visit Cardiology, [facility] [address] [place] [phone] Chino Carrillo PA-C [address] [place] [address] 04/18/2025 10:30 AM EDT Office Visit Gastroenterology, [facility] [address] [place] [phone] Maira Pineda CRNP [address] [place] [address] 06/02/2025 10:00 AM EDT Office Visit Family Medicine [address] [place] [phone] Krystian Palomo MD [address] [place] [address] [place] [address] 09/11/2025 2:00 PM EST Imaging Radiology [address] [place] [address] Scheduled Procedures Name Priority Associated Diagnoses Date/Ti [...] this encounter Medical Devices Implanted Type Area Music Therapy Specialist Device Identifier Shelf Expiration Date Model / Serial / Lot Lipiodol Injection - [id number] Implanted:Q[facility]/2026 [id number] Syr Pf 2ml Embospheres 100-300 - [id number] Implanted:Qty: 1 on [facility] [id number] 02/26/2026 S220GH / / [id number] Syr Pf 2ml Embospheres 100-300 - [id number] Implanted:Qty: 1 on 04/11/2024 at [facility] [employer] [id number] 12/27/2026 S220GH / / [id number] Lipiodol Injection - [id number] Implanted:Qty: 1 on 04/11/2024 at [facility] [employer] 77349-67 documented as of this encounter Visit Diagnoses [...] Advance Directives occurred with: Patient Care Teams Water Pollution Control Technician Relationship Specialty Start Date End Date Krystian Palomo MD [address] [place] [address] [place] [address] PCP - General Family Medicine 12/22/23 documented as of this encounter
--- OUTSIDE RECORDS SUMMARY | 2025-02-07 23:34 | External Medical Summary ---
Author Name Unknown Address Unknown Organization : Laboratory Report Ordering Provider Test Date Status PEGGY MORALES 01/20/2025 21:05:37 Final Observation Date Value Abnormality Reference (Units ) Status Glucose Point of Care 01/20/2025 21:05:37 202 Above high normal 70-120 (mg/dL) Final Performing Location
--- OUTSIDE RECORDS SUMMARY | 2025-02-07 23:34 | External Medical Summary ---
Author Name Unknown Address Unknown Organization K01:LABORATORY [facility] - [address] [place] [address] Laboratory Report Ordering Provider Test Date Status GAB DAWN 01/19/2025 08:04:00 Final Warfarin Therapy
INR: 2 .0-3.0 conventional anticoagulation
INR: 2.5- 3.5 high intensity anticoagulation Observation Date Value Abnormality Reference (Units ) Status PT 01/19/2025 08:04:00 21.3 Above high normal 11 .6-15.2 (seconds) Final INR 01/19/2025 08:04:00 1.8 Above high normal 0. 8-1.2 Final Performing Location LABORATORY [facility] - [address] [place] [address]
--- OUTSIDE RECORDS SUMMARY | 2025-02-07 23:34 | External Medical Summary | Summary of Care ---
Author Name Unknown Organization [facility] Address [address] [place] [address] Phone [phone] Care Team Providers Care Legal Stenographer Name Role Phone Krystian Palomo MD Primary Care Provide r Reason for Visit * Reason Onset Date Comments Advice 01/06/2025 Encounter Details Date Type Department Care Team (Late st Contact Info) Description 01/06/2025 Telephone Gastroenterology, [facility] [address] [place] [address] Services, Scheduling [address] [place] [address] Advice Allergies Active Allergy Reactions Criticality Noted [...] HCl 2.5 MG Oral Tablet (Proamatine)Indicat ions:at 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 Is agreeable to see fitting room attendant. Schedulers, please reach out to him. * [...] 01/23/2025 3:00 PM EDT Office Visit Pharmacy, [address] [place] [address] [place] [address] 02/04/2025 12:30 PM EDT Office Visit Gastroenterology, [facility] [address] [place] [phone] Ren Pineda CRNP [address] [place] [address] 03/10/2025 7:20 AM EDT Office Visit Family [address] [place] [phone] Krystian Palomo MD [address] [place] [address] [place] [address] 03/20/2025 10:30 AM EDT Office Visit Cardiology, [facility] [address] [place] [phone] Chino Carrillo PA-C [address] [place] [address] 04/18/2025 10:30 AM EDT Office Visit Gastroenterology, [facility] [address] [place] [phone] Ren Pineda CRNP [address] [place] [address] 06/02/2025 10:00 AM EDT Office Visit Family [address] [place] [phone] Krystian Palomo MD [address] [place] [address] [place] [address] 09/11/2025 2:00 PM EST Imaging Radiology [address] [place] [address] Scheduled Procedures Name Priority Associated Diagnoses Date/Ti [...] this encounter Medical Devices Implanted Type Area Cordwood Cutter Helper Device Identifier Shelf Expiration Date Model / Serial / Lot Lipiodol Injection - [id number] Implanted:Qty: 1 on 08/02/2023 at [facility] [employer] 04/28/2026 [id number] -[id number] / [id number] Syr Pf 2ml Embospheres 100-300 - [id number] Implanted:Qty: 1 on 08/02/2023 at [facility] [employer] [id number] 02/26/2026 S220GH / / [id number] Syr Pf 2ml Embospheres 100-300 - [id number] Implanted:Qty: 1 on 04/11/2024 at [facility] [employer] [id number] 12/27/2026 S220GH / / [id number] Lipiodol Injection - [id number] Implanted:Qty: 1 on 04/11/2024 at [facility] [employer] 84814-28 documented as of this encounter Advance Directives [...] Advance Directives occurred with: Patient Care Teams Legal Stenographer Relationship Specialty Start Date End Date Krystian Palomo MD [address] [place] [address] [place] [phone] PCP - General Family Medicine 12/22/23 documented as of this encounter
--- OUTSIDE RECORDS SUMMARY | 2025-02-07 23:34 | External Medical Summary ---
Author Name Unknown Address Unknown Organization : Laboratory Report Ordering Provider Test Date Status PEGGY MORALES 01/21/2025 07:13:40 Final Observation Date Value Abnormality Reference (Units ) Status Glucose Point of Care 01/21/2025 07:13:40 183 Above high normal 70-120 (mg/dL) Final Performing Location
--- OUTSIDE RECORDS SUMMARY | 2025-02-07 23:34 | External Medical Summary ---
Author Name Unknown Address Unknown Organization : Laboratory Report Ordering Provider Test Date Status PEGGY MORALES 01/17/2025 20:50:48 Final Observation Date Value Abnormality Reference (Units ) Status Glucose Point of Care 01/17/2025 20:50:48 118 70-120 (mg/dL) Final Performing Location
--- OUTSIDE RECORDS SUMMARY | 2025-02-07 23:34 | External Medical Summary ---
Author Name Unknown Address Unknown Organization K01:LABORATORY [facility] - [address] [place] [address] Laboratory Report Ordering Provider Test Date Status GAB DAWN 01/21/2025 06:50:00 Final Warfarin Therapy
INR: 2 .0-3.0 conventional anticoagulation
INR: 2.5- 3.5 high intensity anticoagulation Observation Date Value Abnormality Reference (Units ) Status PT 01/21/2025 06:50:00 22.5 Above high normal 11 .6-15.2 (seconds) Final INR 01/21/2025 06:50:00 2.0 Above high normal 0. 8-1.2 Final Performing Location LABORATORY [facility] - [address] [place] [address]
--- OUTSIDE RECORDS SUMMARY | 2025-02-07 23:35 | External Medical Summary ---
Author Name Unknown Address Unknown Organization : Laboratory Report Ordering Provider Test Date Status PEGGY MORALES 01/16/2025 08:15:38 Final Observation Date Value Abnormality Reference (Units ) Status Glucose Point of Care 01/16/2025 08:15:38 168 Above high normal 70-120 (mg/dL) Final Performing Location
--- OUTSIDE RECORDS SUMMARY | 2025-02-07 23:35 | External Medical Summary ---
Author Name Unknown Address Unknown Organization K01:[facility] - [address] [place] [address] Laboratory Report Ordering Provider Test Date Status TARYN NIEVES 01/17/2025 06:34:00 Final Observation Date Value Abnormality Reference (Units ) Status Phosphate 01/17/2025 06:34:00 2.6 2.5-4.8 (m g/dL) Final Performing Location [facility] - [address] [place] [address]
--- OUTSIDE RECORDS SUMMARY | 2025-02-07 23:35 | External Medical Summary | Summary of Care ---
Author Name Unknown Organization [facility] Address [address] [place] [address] Phone [phone] Care Team Providers Care Printed Circuit Board Panels Deburrer Name Role Phone Joann Collier MD Primary Care Provide r Reason for Visit * Reason Onset Date Comments Order Request 01/10/2025 Encounter Details Date Type Department Care Team (Late st Contact Info) Description 01/10/[address] [phone] Joann Collier MD [address] [place] [address] [place] [address] Order Request Allergies Active Allergy Reactions Criticality Noted Date Comments Aspirin 01/28/2022 Other reaction(s): bloody nose Salicylates 08/08/2001 nose bleeds documented as of this encounter (statuses as of 01/16/2025) Medications Multivitamin Adult Oral Tablet daily . 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 [facility] their recommendation,however is agreeable to [facility] as well. Would like to get this taken care of as soon as possible. * Telephone Encounter - Susana Crenshaw RN - 01/14/2025 2:19 PM EDT I left a message for Snow to call us back after they check with his insurance to see who acceptsit If they do not know we could try to send this to [facility] and let them check * Telephone Encounter - Susana Crenshaw RN - 01/14/2025 1:40 PM EDT Pt needs called to see who accepts his insurance. * Telephone Encounter - Gail De León OSA - 01/14/2025 9:44 AM EDT [facility] calling they are out of network with patient insurance [employer], they are unable tocomplete orders * Telephone Encounter - Daniella Paez CMA - 01/13/2025 2:58 PM EDT Sent the orders and notes to [facility]. * Addendum Note - Joann [...] 11:17 AM EDT Good Morning, Nurse at [facility] called on mutual patient to request an order for wheel chair and hospital bed. Please call patients sister Snow Spencer at [phone] to discuss. Thank you XIOMARA Maurer documented in this encounter Plan of Treatment Upcoming Encounters Date Type Department Care Team (Late st Contact Info) Description 01/23/2025 3:00 PM EDT Office Visit Pharmacy, [address] [place] [address] [place] [address] 02/04/2025 12:30 PM EDT Office Visit Gastroenterology, [facility] [address] [place] [phone] Ren Pineda CRNP [address] [place] [address] 03/10/2025 7:20 AM EDT Office Visit [address] [place] [phone] Joann Collier MD [address] [place] [address] [place] [address] 03/20/2025 10:30 AM EDT Office Visit Cardiology, [facility] [address] [place] [address] Chino Carrillo PA-C [address] [place] [address] 04/18/2025 10:30 AM EDT Office Visit Gastroenterology, [facility] [address] [place] [phone] Ren Pineda CRNP [address] [place] [address] 06/02/2025 10:00 AM EDT Office Visit [address] [place] [phone] Joann Collier MD [address] [place] [address] [place] [address] 09/11/2025 2:00 PM EST Imaging Radiology [address] [place] [address] Scheduled Procedures Name Priority Associated Diagnoses Date/Ti [...] history exists Depression Screening 09/09/2025 09/09/2024 GFR 01/16/2026 01/16/2025, 12/28, 01/14/2025, Additional history exists Lipid Panel 09/18/2028 09/18/2023, [...] this encounter Medical Devices Implanted Type Area Zanjero Device Identifier Shelf Expiration Date Model / Serial / Lot Lipiodol Injection - [id number] Implanted:[facility]/2026 [id number] Syr Pf 2ml Embospheres 100-300 - [id number] Implanted:Qty: 1 on 08/02/2023 at [facility] [employer] [id number] 02/26/2026 S220GH / / [id number] Syr Pf 2ml Embospheres 100-300 - [id number] Implanted:Qty: 1 on 04/11/2024 at [facility] [employer] [id number] 12/27/2026 S220GH / / [id number] Lipiodol Injection - [id number] Implanted:Qty: 1 on [facility]11/2024 [facility] [address]67 documented as of this encounter Visit Diagnoses [...] Advance Directives occurred with: Patient Care Teams Printed Circuit Board Panels Deburrer Relationship Specialty Start Date End Date Joann Collier MD [address] [place] [address] [place] [phone] PCP - General Family Medicine 12/22/23 documented as of this encounter
--- OUTSIDE RECORDS SUMMARY | 2025-02-07 23:35 | External Medical Summary ---
Author Name Unknown Address Unknown Organization K01:LABORATORY [facility] - [address] [place] [address] Laboratory Report Ordering Provider Test Date Status TARYN NIEVES 01/17/2025 06:34:00 Final Observation Date Value Abnormality Reference (Units ) Status Magnesium 01/17/2025 06:34:00 2.1 1.5-2.6 (m g/dL) Final Performing Location [facility] - [address] [place] [address]
--- OUTSIDE RECORDS SUMMARY | 2025-02-07 23:35 | External Medical Summary ---
Author Name Unknown Address Unknown Organization K01:LAB[facility]ATORY [facility] [place] - [address] [place] [address] Laboratory Report Ordering Provider Test Date Status TARYN NIEVES 01/17/2025 06:34:00 Final Observation Date Value Abnormality Reference (Units ) Status BUN 01/17/2025 06:34:00 16 6-20 (mg/dL) Final Creatinine 01/17/2025 06:34:00 1.0 0.6-1.2 (mg/dL) Final Glomerular filtration rate/1.73 sq M.predicted [Volume Rate/Area] in Serum, Plasma or Blood by Creatinine-based formula (CKD-EPI) 01/17/2025 06:34:00 88 >=60 (mL/min) Final eGFR is calculated based on the CKD-EPI 2020 equation. Sodium 01/17/2025 06:34:00 125 Below low normal 135 -146 (mmol/L) Final Potassium 01/17/2025 06:34:00 3.5 3.5-5.1 (m mol/L) Final Cl 01/17/2025 06:34:00 94 Below low normal 98- 107 (mmol/L) Final CO2 01/17/2025 06:34:00 24 22-32 (mmo l/L) Final Anion gap 01/17/2025 06:34:00 7 7-15 (mmol /L) Final Glucose 01/17/2025 06:34:00 131 Above high normal 70 -120 (mg/dL) Final Albumin 01/17/2025 06:34:00 2.2 Below low normal 3.8 -5.0 (g/dL) Final AST (Aspartate aminotransferase) 01/17/2025 06:34:00 54 Above high normal 10-50 (U/L) Final Alk Phos 01/17/2025 06:34:00 169 Above high normal 35 -130 (U/L) Final Bilirubin, Total 01/17/2025 06:34:00 2.1 Above high no rmal <=1.2 (mg/dL) Final Calcium 01/17/2025 06:34:00 7.6 Below low normal 8.4 -10.2 (mg/dL) Final Protein 01/17/2025 06:34:00 5.0 Below low normal 6.0 -8.3 (g/dL) Final ALT (Alanine aminotransferase) 01/17/2025 06:34:00 38 10-50 (U/L) Christian bundy Performing Location LABORATORY [facility] [place] - [address] [facility] [address]
--- OUTSIDE RECORDS SUMMARY | 2025-02-07 23:35 | External Medical Summary ---
Author Name Unknown Address Unknown Organization K01:LABORATORY [facility] [place] - [facility] [address] [facility] [address] Laboratory Report Ordering Provider Test Date Status ROSIE GUERRERO 01/15/2025 00:09:08 Final Observation Date Value Abnormality Reference (Units ) Status Color of Urine by Auto 01/15/2025 00:09:08 Yellow Colorless, Light Yellow, Yellow, Dark Yellow Final Clarity, Urine 01/15/2025 00:09:08 Clear Clear Final Glucose [Mass/volume] in Urine by Automated test strip 01/15/2025 00:09:08 Negative Negative (mg/dL) Final Bilirubin.total [Presence] in Urine by Automated test strip 01/15/2025 00:09:08 Negative Negative Final Ketones [Mass/volume] in Urine by Automated test strip 01/15/2025 00:09:08 Negative Negative (mg/dL) Final Specific gravity, Urine 01/15/2025 00:09:08 1.015 1.003-1.030 Final Hemoglobin [Presence] in Urine by Automated test strip 01/15/2025 00:09:08 Negative Negative Final pH, Urine 01/15/2025 00:09:08 5.5 5.0-7.5 (Units) Final Protein [Mass/volume] in Urine by Automated test strip 01/15/2025 00:09:08 Negative Negative (mg/dL) Final Urobilinogen [Mass/volume] in Urine by Automated test strip 01/15/2025 00:09:08 Normal Normal (mg/dL) Final Nitrite [Presence] in Urine by Automated test strip 01/15/2025 00:09:08 Negative Negative Final Leukocyte esterase [Presence] in Urine by Automated test strip 01/15/2025 00:09:08 Negative Negative Final Annotation Comment 01/15/2025 00:09:08 Final Screen negative - Microscopi c not performed. Performing Location LAB[facility]ATORY [facility] [place] - [address] [facility] [address]
--- OUTSIDE RECORDS SUMMARY | 2025-02-07 23:35 | External Medical Summary ---
Author Name Unknown Address Unknown Organization K01:LAB[facility]ATORY [facility] - [address] [facility] [place] [address] Laboratory Report Ordering Provider Test Date Status TARYN NIEVES 01/16/2025 06:40:00 Final Observation Date Value Abnormality Reference (Units ) Status BUN 01/16/2025 06:40:00 17 6-20 (mg/dL) Final Creatinine 01/16/2025 06:40:00 0.9 0.6-1.2 (mg/dL) Final Glomerular filtration rate/1.73 sq M.predicted [Volume Rate/Area] in Serum, Plasma or Blood by Creatinine-based formula (CKD-EPI) 01/16/2025 06:40:00 >90 >=60 (mL/min) Final eGFR is calculated based on the CKD-EPI 2020 equation. Sodium 01/16/2025 06:40:00 126 Below low normal 135 -146 (mmol/L) Final Potassium 01/16/2025 06:40:00 3.9 3.5-5.1 (m mol/L) Final Cl 01/16/2025 06:40:00 94 Below low normal 98- 107 (mmol/L) Final CO2 01/16/2025 06:40:00 22 22-32 (mmo l/L) Final Anion gap 01/16/2025 06:40:00 10 7-15 (mmol /L) Final Glucose 01/16/2025 06:40:00 202 Above high normal 70 -120 (mg/dL) Final Albumin 01/16/2025 06:40:00 2.1 Below low normal 3.8 -5.0 (g/dL) Final AST (Aspartate aminotransferase) 01/16/2025 06:40:00 49 10-50 (U/L) Fin al Alk Phos 01/16/2025 06:40:00 154 Above high normal 35 -130 (U/L) Final Bilirubin, Total 01/16/2025 06:40:00 2.5 Above high no rmal <=1.2 (mg/dL) Final Calcium 01/16/2025 06:40:00 7.9 Below low normal 8.4 -10.2 (mg/dL) Final Protein 01/16/2025 06:40:00 4.9 Below low normal 6.0 -8.3 (g/dL) Final ALT (Alanine aminotransferase) 01/16/2025 06:40:00 36 10-50 (U/L) Christian bundy Performing Location LAB[facility]ATORY [facility] - [address] [facility] [address]
--- OUTSIDE RECORDS SUMMARY | 2025-02-07 23:35 | External Medical Summary ---
Author Name Unknown Address Unknown Organization K01:[facility] - [address] [place] [address] Laboratory Report Ordering Provider Test Date Status TARYN NIEVES 01/16/2025 06:40:00 Final Observation Date Value Abnormality Reference (Units ) Status Phosphate 01/16/2025 06:40:00 2.6 2.5-4.8 (m g/dL) Final Performing Location [facility] - [address] [place] [address]
--- OUTSIDE RECORDS SUMMARY | 2025-02-07 23:35 | External Medical Summary ---
Author Name Unknown Address Unknown Organization : Laboratory Report Ordering Provider Test Date Status PEGGY MORALES 01/15/2025 07:15:04 Final Observation Date Value Abnormality Reference (Units ) Status Glucose Point of Care 01/15/2025 07:15:04 200 Above high normal 70-120 (mg/dL) Final Performing Location
--- OUTSIDE RECORDS SUMMARY | 2025-02-07 23:35 | External Medical Summary ---
Author Name Unknown Address Unknown Organization K01:LABORATORY [facility] - [address] [place] [address] Laboratory Report Ordering Provider Test Date Status GAB DAWN 01/17/2025 06:34:00 Final Warfarin Therapy
INR: 2 .0-3.0 conventional anticoagulation
INR: 2.5- 3.5 high intensity anticoagulation Observation Date Value Abnormality Reference (Units ) Status PT 01/17/2025 06:34:00 21.7 Above high normal 11 .6-15.2 (seconds) Final INR 01/17/2025 06:34:00 1.9 Above high normal 0. 8-1.2 Final Performing Location LABORATORY [facility] - [address] [place] [address]
--- OUTSIDE RECORDS SUMMARY | 2025-02-07 23:35 | External Medical Summary ---
Author Name Unknown Address Unknown Organization : Laboratory Report Ordering Provider Test Date Status PEGGY MORALES 01/17/2025 16:23:14 Final Observation Date Value Abnormality Reference (Units ) Status Glucose Point of Care 01/17/2025 16:23:14 136 Above high normal 70-120 (mg/dL) Final Performing Location
--- OUTSIDE RECORDS SUMMARY | 2025-02-07 23:35 | External Medical Summary ---
Author Name Unknown Address Unknown Organization K01:LABORATORY [facility] - [address] [place] [address] Laboratory Report Ordering Provider Test Date Status TARYN NIEVES 01/16/2025 06:40:00 Final Observation Date Value Abnormality Reference (Units ) Status Magnesium 01/16/2025 06:40:00 2.1 1.5-2.6 (m g/dL) Final Performing Location [facility] - [address] [place] [address]
--- OUTSIDE RECORDS SUMMARY | 2025-02-07 23:35 | External Medical Summary | Summary of Care ---
Author Name Unknown Organization [facility] Address [address] [place] [address] Phone [phone] Care Team Providers Care Crew Leader Gluing Name Role Phone Krystian Palomo MD Primary Care Provide r Reason for Visit * Reason Onset Date Comments Advice 01/06/2025 Encounter Details Date Type Department Care Team (Late st Contact Info) Description 01/06/2025 Telephone Gastroenterology, [facility] [address] [place] [address] Services, Scheduling [address] [place] [address] Advice Allergies Active Allergy Reactions Criticality Noted [...] 2.5 MG Oral Tablet (Proamatine)Indicat ions:at [facility] d/c 09.7.24 Take 3 Tablets [...] file Not on file Not on file [place] Not on file Not on file Not [...] encounter Miscellaneous Notes * Telephone Encounter - Catei Torre OSA - 01/17/2025 1:25 PM EDT Pt is currently admitting at [facility] Will have to contact when pt is [...] EDT Patient notified. Is agreeable to see life underwriter. Schedulers, please reach out to him. * Telephone Encounter - Ren Pienda CRNP - 01/07/2025 9:20 AM EDT Sorry, [...] 01/23/2025 3:00 PM EDT Office Visit Pharmacy, [address] [place] [address] [place] [address] 02/04/2025 12:30 PM EDT Office Visit Gastroenterology, [facility] [address] [place] [phone] Ren Pineda CRNP [address] [place] [address] 03/10/2025 7:20 AM EDT Office Visit Family [address] [place] [phone] Krystian Palomo MD [address] [place] [address] [place] [address] 03/20/2025 10:30 AM EDT Office Visit Cardiology, [facility] [address] [place] [address] Chino Carrillo PA-C [address] [place] [address] 04/18/2025 10:30 AM EDT Office Visit Gastroenterology, [facility] [address] [place] [address] Ren Pineda CRNP [address] [place] [address] 06/02/2025 10:00 AM EDT Office Visit Family [address] [place] [address] Krystian Palomo MD [address] [place] [address] [place] [address] 09/11/2025 2:00 PM EST Imaging Radiology [address] [place] [address] Scheduled Procedures Name Priority Associated Diagnoses Date/Ti [...] this encounter Medical Devices Implanted Type Area Chief Nursing Officer Device Identifier Shelf Expiration Date Model / Serial / Lot Lipiodol Injection - [id number] Implanted:Qty: 1 on 08/02/2023 at [facility] [employer] 04/28/2026 [id number] -[id number] / [id number] Syr Pf 2ml Embospheres 100-300 - [id number] Implanted:Qty: 1 on 08/02/2023 at [facility] [employer] [id number] 02/26/2026 S220GH / / [id number] Syr Pf 2ml Embospheres 100-300 - [id number] Implanted:Qty: 1 on 04/11/2024 at [facility] [employer] [id number] 12/27/2026 S220GH / / [id number] Lipiodol Injection - [id number] Implanted:Qty: 1 on 04/11/2024 at [facility] [employer] [id number] documented as of this encounter Advance Directives [...] Advance Directives occurred with: Patient Care Teams Crew Leader Gluing Relationship Specialty Start Date End Date Krystian Palomo MD [address] [place] [address] [place] [phone] PCP - General Family Medicine 12/22/23 documented as of this encounter
--- OUTSIDE RECORDS SUMMARY | 2025-02-07 23:35 | External Medical Summary | Summary of Care ---
Author Name Unknown Organization [facility] Address [address] [place] [address] Phone [phone] Care Team Providers Care Asp Net Mvc Developer Name Role Phone Joann Collier MD Primary Care Provide r Reason for Visit * Reason Onset Date Comments Order Request 01/10/2025 Encounter Details Date Type Department Care Team (Late st Contact Info) Description 01/10/[address] [address] Joann Collier MD [address] [place] [address] [place] [address] Order Request Allergies Active Allergy Reactions Criticality [...] (12/06/2022): admitted [facility], ammonia 110 Aortic [...] file Not on file 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 [facility],however is agreeable to [facility] as well. Would like to get this taken care of as soon as possible. * Telephone Encounter - Susana Crenshaw RN - 01/14/2025 2:19 PM EDT I left a message for Snow to call us back after they check with his insurance to see who acceptsit If they do not know we could try to send this to [employer] [facility] and let them check * Telephone Encounter - Susana Crenshaw RN - 01/14/2025 1:40 PM EDT Pt needs called to see who accepts his insurance. * Telephone Encounter - Gail De León OSA - 01/14/2025 9:44 AM EDT [facility] calling they are out of network with patient insurance [employer], they are unable tocomplete orders * Telephone Encounter - Daniella Paez CMA - 01/13/2025 2:58 PM EDT Sent the orders and notes to [facility]. * Addendum Note - Joann Collier MD [...] 11:17 AM EDT Good Morning, Nurse at [facility] called on mutual patient to request an order for wheel chair and hospital bed. Please call patients sister Snow Spencer at [phone] to discuss. Thank you XIOMARA Maurer documented in this encounter Plan of Treatment Upcoming Encounters Date Type Department Care Team (Late st Contact Info) Description 01/23/2025 3:00 PM EDT Office Visit Pharmacy, [address] [place] [address] [place] [address] 02/04/2025 12:30 PM EDT Office Visit Gastroenterology, [facility] [address] [place] [phone] Ren Pineda CRNP [address] [place] [address] 03/10/2025 7:20 AM EDT Office Visit [address] [place] [address] Joann Collier MD [address] [place] [address] [place] [address] 03/20/2025 10:30 AM EDT Office Visit Cardiology, [facility] [address] [place] [address] Chino Carrillo PA-C [address] [place] [address] 04/18/2025 10:30 AM EDT Office Visit Gastroenterology, [facility] [address] [place] [phone] Ren Pineda CRNP [address] [place] [address] 06/02/2025 10:00 AM EDT Office Visit [address] [place] [address] Joann Collier MD [address] [place] [address] [place] [address] 09/11/2025 2:00 PM EST Imaging Radiology [address] [place] [address] Scheduled Procedures Name Priority Associated Diagnoses Date/Ti [...] this encounter Medical Devices Implanted Type Area Slitter Helper Device Identifier Shelf Expiration Date Model / Serial / Lot Lipiodol Injection - [id number] Implanted:Qty: 1 [facility] 04/28/2026 11369-09 [id number] Syr Pf 2ml Embospheres 100-300 - [id number] Implanted:Qty: 1 on 08/02/2023 at [facility] [place] [id number] 02/26/2026 S220GH / / [id number] Syr Pf 2ml Embospheres 100-300 - [id number] Implanted:Qty: 1 on 04/11/2024 at [facility] [place] [id number] 12/27/2026 S220GH / / [id number] Lipiodol Injection - [id number] Implanted:Qty: 1 on [facility] [address] documented as of this encounter Visit Diagnoses [...] Advance Directives occurred with: Patient Care Teams Asp Net Mvc Developer Relationship Specialty Start Date End Date Joann Collier MD [address] [place] [address] [place] [phone] PCP - General Family Medicine 12/22/23 documented as of this encounter
--- OUTSIDE RECORDS SUMMARY | 2025-02-07 23:35 | External Medical Summary ---
Author Name Unknown Address Unknown Organization : Laboratory Report Ordering Provider Test Date Status PEGGY MORALES 01/16/2025 11:31:15 Final Observation Date Value Abnormality Reference (Units ) Status Glucose Point of Care 01/16/2025 11:31:15 221 Above high normal 70-120 (mg/dL) Final Performing Location
--- OUTSIDE RECORDS SUMMARY | 2025-02-07 23:35 | External Medical Summary ---
Author Name Unknown Address Unknown Organization K01:LABORATORY [facility] - [facility] [address] [place] [facility] [facility] [address] Laboratory Report Ordering Provider Test Date Status TARYN NIEVES 01/17/2025 06:34:00 Final Observation Date Value Abnormality Reference (Units ) Status WBC, Total 01/17/2025 06:34:00 6.27 4.00-10.80 (K/uL) Final RBC 01/17/2025 06:34:00 2.25 4.50-5.25 (M/uL) Final Hemoglobin 01/17/2025 06:34:00 7.7 Below low normal 14.0-16.8 (g/dL) Final HCT 01/17/2025 06:34:00 23.4 Below low normal 40.0-48.4 (%) Final MCV 01/17/2025 06:34:00 104.0 82.0-99.5 (fL) Final MCH 01/17/2025 06:34:00 34.2 27.0-34.0 (pg) Final MCHC 01/17/2025 06:34:00 32.9 32.0-36.0 (g/dL) Final RDW 01/17/2025 06:34:00 21.6 11.5-15.5 (%) Final Platelets 01/17/2025 06:34:00 78 Below low normal 140-400 (K/uL) Final MPV 01/17/2025 06:34:00 9.9 6.6-11.1 (fL) Final Nucleated erythrocytes/100 leukocytes [Ratio] in Blood by Automated count 01/17/2025 06:34:00 0 <=0 (/100 WBCs) Final Performing Location LABORATORY [facility] - [address] [facility] [address]
--- OUTSIDE RECORDS SUMMARY | 2025-02-07 23:35 | External Medical Summary ---
Author Name Unknown Address Unknown Organization K01:[facility]ORY [facility] [place] [address] [place] [address] Laboratory Report Ordering Provider Test Date Status LEONARDO DEL ANGELMarge 01/15/2025 06:14:00 Final Observation Date Value Abnormality Reference (Units ) Status LDH 01/15/2025 06:14:00 253 Above high normal <= 250 (U/L) Final Results may be falsely eleva tone due to hemolysis. Performing Location LABORATORY [facility] - [address] [place] [address]
--- OUTSIDE RECORDS SUMMARY | 2025-02-07 23:35 | External Medical Summary ---
Author Name Unknown Address Unknown Organization : Laboratory Report Ordering Provider Test Date Status PEGGY MORALES 01/17/2025 11:36:52 Final Observation Date Value Abnormality Reference (Units ) Status Glucose Point of Care 01/17/2025 11:36:52 253 Above high normal 70-120 (mg/dL) Final Performing Location
--- OUTSIDE RECORDS SUMMARY | 2025-02-07 23:35 | External Medical Summary ---
Author Name Unknown Address Unknown Organization K01:LABORATORY [facility] - [address] [facility]. [place] [address] Laboratory Report Ordering Provider Test Date Status ROSIE GUERRERO 01/15/2025 06:14:00 Final Observation Date Value Abnormality Reference (Units ) Status BUN 01/15/2025 06:14:00 19 6-20 (mg/dL) Final Creatinine 01/15/2025 06:14:00 0.9 0.6-1.2 (mg/dL) Final Glomerular filtration rate/1.73 sq M.predicted [Volume Rate/Area] in Serum, Plasma or Blood by Creatinine-based formula (CKD-EPI) 01/15/2025 06:14:00 >90 >=60 (mL/min) Final eGFR is calculated based on the CKD-EPI 2020 equation. Sodium 01/15/2025 06:14:00 122 Below low normal 135 -146 (mmol/L) Final Potassium 01/15/2025 06:14:00 3.8 3.5-5.1 (m mol/L) Final Cl 01/15/2025 06:14:00 90 Below low normal 98- 107 (mmol/L) Final CO2 01/15/2025 06:14:00 20 Below low normal 22- 32 (mmol/L) Final Anion gap 01/15/2025 06:14:00 12 7-15 (mmol /L) Final Glucose 01/15/2025 06:14:00 190 Above high normal 70 -120 (mg/dL) Final Albumin 01/15/2025 06:14:00 2.2 Below low normal 3.8 -5.0 (g/dL) Final AST (Aspartate aminotransferase) 01/15/2025 06:14:00 53 Above high normal 10-50 (U/L) Final Alk Phos 01/15/2025 06:14:00 151 Above high normal 35 -130 (U/L) Final Bilirubin, Total 01/15/2025 06:14:00 3.0 Above high no rmal <=1.2 (mg/dL) Final Calcium 01/15/2025 06:14:00 8.0 Below low normal 8.4 -10.2 (mg/dL) Final Protein 01/15/2025 06:14:00 5.2 Below low normal 6.0 -8.3 (g/dL) Final ALT (Alanine aminotransferase) 01/15/2025 06:14:00 37 10-50 (U/L) Christian bundy Performing Location LABORATORY [facility] - [address] [facility] [address]
--- OUTSIDE RECORDS SUMMARY | 2025-02-07 23:35 | External Medical Summary ---
Author Name Unknown Address Unknown Organization : Laboratory Report Ordering Provider Test Date Status PEGGY MORALES 01/16/2025 16:30:52 Final Observation Date Value Abnormality Reference (Units ) Status Glucose Point of Care 01/16/2025 16:30:52 213 Above high normal 70-120 (mg/dL) Final Performing Location
--- OUTSIDE RECORDS SUMMARY | 2025-02-07 23:35 | External Medical Summary ---
Author Name Unknown Address Unknown Organization : Laboratory Report Ordering Provider Test Date Status PEGGY MORALES 01/17/2025 07:32:49 Final Observation Date Value Abnormality Reference (Units ) Status Glucose Point of Care 01/17/2025 07:32:49 163 Above high normal 70-120 (mg/dL) Final Performing Location
--- OUTSIDE RECORDS SUMMARY | 2025-02-07 23:35 | External Medical Summary ---
Author Name Unknown Address Unknown Organization K01:[facility] [place] [facility] [address] Laboratory Report Ordering Provider Test Date Status TARYN NIEVES 01/16/2025 06:40:00 Final Observation Date Value Abnormality Reference (Units ) Status WBC, Total 01/16/2025 06:40:00 7.39 4.00-10.80 (K/uL) Final RBC 01/16/2025 06:40:00 2.34 4.50-5.25 (M/uL) Final Hemoglobin 01/16/2025 06:40:00 8.1 Below low normal 14.0-16.8 (g/dL) Final HCT 01/16/2025 06:40:00 24.2 Below low normal 40.0-48.4 (%) Final MCV 01/16/2025 06:40:00 103.4 82.0-99.5 (fL) Final MCH 01/16/2025 06:40:00 34.6 27.0-34.0 (pg) Final MCHC 01/16/2025 06:40:00 33.5 32.0-36.0 (g/dL) Final RDW 01/16/2025 06:40:00 21.6 11.5-15.5 (%) Final Platelets 01/16/2025 06:40:00 80 Below low normal 140-400 (K/uL) Final MPV 01/16/2025 06:40:00 10.1 6.6-11.1 (fL) Final Nucleated erythrocytes/100 leukocytes [Ratio] in Blood by Automated count 01/16/2025 06:40:00 0 <=0 (/100 WBCs) Final Performing Location [facility] [place] [address] [facility] [address]
--- OUTSIDE RECORDS SUMMARY | 2025-02-07 23:35 | External Medical Summary | Summary of Care ---
Author Name Unknown Organization [facility] Address [address] [place] [address] Phone [phone] Care Team Providers Care Core Placer Name Role Phone Joann Collier MD Primary Care Provide r Reason for Visit * Reason Onset Date Comments Order Request 01/10/2025 Encounter Details Date Type Department Care Team (Late st Contact Info) Description 01/10/[address] [address] Joann Collier MD [address] [place] [address] [place] [address] Order Request Allergies Active Allergy Reactions Criticality Noted Date Comments Aspirin 01/28/2022 Other reaction(s): bloody nose Salicylates 08/08/2001 nose bleeds documented as of this encounter (statuses as of 01/14/2025) Medications Multivitamin Adult Oral Tablet daily . 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 Hepatic encephalopathy 03/28/2022 Overview (12/06/2022): admitted [facility], ammonia 110 Aortic [...] as of this encounter (statuses as of 01/14/2025) Resolved Problems Problem Noted Date Diagnosed Date [...] as of this encounter (statuses as of 01/14/2025) Immunizations Name Administration Dates Next Due COVID-19 [...] file Not on file Not on file 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 * Telephone Encounter - Gail De León OSA - 01/14/2025 9:44 AM EDT [facility] calling they are out of network with patient insurance [employer], they are unable tocomplete orders * Telephone Encounter - Daniella Paez CMA - 01/13/2025 2:58 PM EDT Sent the orders and notes to [facility]. * Addendum Note - [...] 11:17 AM EDT Good Morning, Nurse at [facility] called on mutual patient to request an order for wheel chair and hospital bed. Please call patients sister Snow Spencer at [phone] to discuss. Thank you XIOMARA Maurer documented in this encounter Plan of Treatment Upcoming Encounters Date Type Department Care Team (Late st Contact Info) Description 01/23/2025 3:00 PM EDT Office Visit Pharmacy, [address] [place] [address] [place] [address] 02/04/2025 12:30 PM EDT Office Visit Gastroenterology, [facility] [address] [place] [phone] Ren Pineda CRNP [address] [place] [address] 03/10/2025 7:20 AM EDT Office Visit Family Medicine [address] [place] [address] Joann Collier MD [address] [place] [address] [place] [address] 03/20/2025 10:30 AM EDT Office Visit Cardiology, [facility] [address] [place] [address] Chino Carrillo PA-C [address] [place] [address] 04/18/2025 10:30 AM EDT Office Visit Gastroenterology, [facility] [address] [place] [phone] Ren Pineda CRNP [address] [place] [address] 06/02/2025 10:00 AM EDT Office Visit Family Medicine [address] [place] [address] Joann Collier MD [address] [place] [address] [place] [address] 09/11/2025 2:00 PM EST Imaging Radiology [address] [place] [address] Scheduled Procedures Name Priority Associated Diagnoses Date/Ti [...] history exists Depression Screening 09/09/2025 09/09/2024 GFR 01/13/2026 01/13/2025, 12/28, 01/06/2025, Additional history exists Lipid Panel 09/18/2028 09/18/2023, [...] this encounter Medical Devices Implanted Type Area Pharmacy Operations Specialist Device Identifier Shelf Expiration Date Model / Serial / Lot Lipiodol Injection - [id number] Implanted:Qty: 1 on 08/02/2023 at [facility] [employer] 04/28/2026 [address]25[address]-43 [id number] Syr Pf 2ml Embospheres 100-300 - [id number] Implanted:Qty: 1 on 08/02/2023 at [facility] [employer] [id number] 02/26/2026 S220GH / / [id number] Syr Pf 2ml Embospheres 100-300 - [id number] Implanted:Qty: 1 on 04/11/2024 at [facility] [employer] [id number] 12/27/2026 S220GH / / [id number] Lipiodol Injection - [id number] Implanted:Qty: 1 on 04/11/2024 at [facility] [place] [id number] documented as of this encounter Visit Diagnoses [...] Advance Directives occurred with: Patient Care Teams Core Placer Relationship Specialty Start Date End Date Joann Collier MD [address] [place] [address] [place] [address] PCP - General Family Medicine 12/22/23 documented as of this encounter
--- OUTSIDE RECORDS SUMMARY | 2025-02-07 23:35 | External Medical Summary ---
Author Name Unknown Address Unknown Organization K01:LABORATORY [facility] [place] - [address] [place] [address] Laboratory Report Ordering Provider Test Date Status GAB DAWN 01/16/2025 09:09:00 Final Warfarin Therapy
INR: 2 .0-3.0 conventional anticoagulation
INR: 2.5- 3.5 high intensity anticoagulation Observation Date Value Abnormality Reference (Units ) Status PT 01/16/2025 09:09:00 21.4 Above high normal 11 .6-15.2 (seconds) Final INR 01/16/2025 09:09:00 1.8 Above high normal 0. 8-1.2 Final Performing Location LABORATORY [facility] - [address] [place] [address]
--- OUTSIDE RECORDS SUMMARY | 2025-02-07 23:35 | External Medical Summary ---
Author Name Unknown Address Unknown Organization : Laboratory Report Ordering Provider Test Date Status PEGGY MORALES 01/15/2025 17:38:25 Final Observation Date Value Abnormality Reference (Units ) Status Glucose Point of Care 01/15/2025 17:38:25 250 Above high normal 70-120 (mg/dL) Final Performing Location
--- OUTSIDE RECORDS SUMMARY | 2025-02-07 23:35 | External Medical Summary ---
Author Name Unknown Address Unknown Organization : Laboratory Report Ordering Provider Test Date Status PEGGY MORALES 01/15/2025 21:11:25 Final Observation Date Value Abnormality Reference (Units ) Status Glucose Point of Care 01/15/2025 21:11:25 223 Above high normal 70-120 (mg/dL) Final Performing Location
--- OUTSIDE RECORDS SUMMARY | 2025-02-07 23:35 | External Medical Summary ---
Author Name Unknown Address Unknown Organization K01:LABORATORY [facility] [place] - [address] [place] [address] Laboratory Report Ordering Provider Test Date Status CESAR,VELEZ 01/15/2025 06:14:00 Final Warfarin Therapy
INR: 2 .0-3.0 conventional anticoagulation
INR: 2.5- 3.5 high intensity anticoagulation Observation Date Value Abnormality Reference (Units ) Status PT 01/15/2025 06:14:00 22.8 Above high normal 11 .6-15.2 (seconds) Final INR 01/15/2025 06:14:00 2.0 Above high normal 0. 8-1.2 Final Performing Location LABORATORY [facility] [address] [facility] [address]
--- OUTSIDE RECORDS SUMMARY | 2025-02-07 23:35 | External Medical Summary ---
Author Name Unknown Address Unknown Organization K01:[facility] [facility] [address] Laboratory Report Ordering Provider Test Date Status ROSIE GUERRERO 01/15/2025 06:14:00 Final Observation Date Value Abnormality Reference (Units ) Status WBC, Total 01/15/2025 06:14:00 6.84 4.00-10.80 (K/uL) Final RBC 01/15/2025 06:14:00 2.39 4.50-5.25 (M/uL) Final Hemoglobin 01/15/2025 06:14:00 8.1 Below low normal 14.0-16.8 (g/dL) Final HCT 01/15/2025 06:14:00 24.6 Below low normal 40.0-48.4 (%) Final MCV 01/15/2025 06:14:00 102.9 82.0-99.5 (fL) Final MCH 01/15/2025 06:14:00 33.9 27.0-34.0 (pg) Final MCHC 01/15/2025 06:14:00 32.9 32.0-36.0 (g/dL) Final RDW 01/15/2025 06:14:00 21.8 11.5-15.5 (%) Final Platelets 01/15/2025 06:14:00 80 Below low normal 140-400 (K/uL) Final MPV 01/15/2025 06:14:00 10.7 6.6-11.1 (fL) Final Nucleated erythrocytes/100 leukocytes [Ratio] in Blood by Automated count 01/15/2025 06:14:00 0 <=0 (/100 WBCs) Final Performing Location [facility] [address] [facility] [address]
--- OUTSIDE RECORDS SUMMARY | 2025-02-07 23:35 | External Medical Summary ---
Author Name Unknown Address Unknown Organization : Laboratory Report Ordering Provider Test Date Status PEGGY MORALES 01/15/2025 11:38:28 Final Observation Date Value Abnormality Reference (Units ) Status Glucose Point of Care 01/15/2025 11:38:28 157 Above high normal 70-120 (mg/dL) Final Performing Location
--- OUTSIDE RECORDS SUMMARY | 2025-02-07 23:35 | External Medical Summary ---
Author Name Unknown Address Unknown Organization : Laboratory Report Ordering Provider Test Date Status PEGGY MORALES 01/16/2025 20:57:42 Final Observation Date Value Abnormality Reference (Units ) Status Glucose Point of Care 01/16/2025 20:57:42 231 Above high normal 70-120 (mg/dL) Final Performing Location
--- OUTSIDE RECORDS SUMMARY | 2025-02-07 23:35 | External Medical Summary | Summary of Care ---
Author Name Unknown Organization [facility] Address [address] [place] [address] Phone [phone] Care Team Providers Care Rn Ortho Name Role Phone Joann Collier MD Primary Care Provide r Reason for Visit * Reason Onset Date Comments Order Request 01/10/2025 Encounter Details Date Type Department Care Team (Late st Contact Info) Description 01/10/[address] [phone] Joann Collier MD [address] [place] [address] [place] [address] Order Request Allergies Active Allergy Reactions Criticality Noted Date Comments Aspirin 01/28/2022 Other reaction(s): bloody nose Salicylates 08/08/2001 nose bleeds documented as of this encounter (statuses as of 01/15/2025) Medications Multivitamin Adult Oral Tablet daily . 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 * Addendum Note - Joann Collier MD [...] 11:17 AM EDT Good Morning, Nurse at [facility] called on mutual patient to request an order for wheel chair and hospital bed. Please call patients sister Snow Spencer at [phone] to discuss. Thank you XIOMARA Maurer documented in this encounter Plan of Treatment Upcoming Encounters Date Type Department Care Team (Late st Contact Info) Description 01/23/2025 3:00 PM EDT Office Visit Pharmacy, [address] [place] [address] [place] [address] 02/04/2025 12:30 PM EDT Office Visit Gastroenterology, [facility] [place] [address] [phone] Ren Pineda CRNP [address] [address] 03/10/2025 7:20 AM EDT Office Visit Family Medicine [address] [place] [phone] Joann Collier MD [address] [place] [address] [place] [address] 03/20/2025 10:30 AM EDT Office Visit Cardiology, [facility] [place] [address] [facility] [place] [address] Chino Carrillo PA-C [address] [place] [address] 04/18/2025 10:30 AM EDT Office Visit Gastroenterology, [facility] [place] [address] [place] [phone] Ren Pineda CRNP [address] [place] [address] 06/02/2025 10:00 AM EDT Office Visit [address] [place] [address] Joann Collier MD [address] [place] [address] [place] [address] 09/11/2025 2:00 PM EST Imaging Radiology [address] [place] [address] Scheduled Procedures Name Priority Associated Diagnoses Date/Ti [...] history exists Depression Screening 09/09/2025 09/09/2024 GFR 01/15/2026 01/15/2025, 12/28, 01/13/2025, Additional history exists Lipid Panel 09/18/2028 09/18/2023, [...] this encounter Medical Devices Implanted Type Area Talent Specialist Device Identifier Shelf Expiration Date Model / Serial / Lot Lipiodol Injection - [id number] Implanted:Qty: 1 on 08/02/[address] [facility] [employer] 04/28/2026 13148-59 \[id number] Syr Pf 2ml Embospheres 100-300 - [id number] Implanted:Qty: 1 on 08/02/[address] [facility] [employer] [id number] 02/26/2026 S220GH / / [id number] Syr Pf 2ml Embospheres 100-300 - [id number] Implanted:Qty: 1 on 04/11/[address] [facility] [employer] [id number] 12/27/2026 S220GH / / [id number] Lipiodol Injection - [id number] Implanted:Qty: 1 on 04/11/[address] [facility] [employer] 33741-27 documented as of this encounter Visit Diagnoses [...] Advance Directives occurred with: Patient Care Teams Rn Ortho Relationship Specialty Start Date End Date Joann Collier MD [address] [place] [address] [place] [phone] PCP - General Family Medicine 12/22/23 documented as of this encounter
--- OUTSIDE RECORDS SUMMARY | 2025-02-07 23:35 | External Medical Summary | Summary of Care ---
Author Name Unknown Organization [facility] Address [address] [place] [address] Phone [phone] Care Team Providers Care Neurology Tech Name Role Phone Krystian Palomo MD Primary Care Provide r Reason for Referral * Evaluate & Treat - Unlimited Visits (Within 30 days (routine)) - Pending Review Specialty Diagnoses / Procedures Referred By Liliana harley Referred To Contact Gastroenterology Diagnoses Cirrhosis of liver with ascites, unspecified hepatic cirrhosis type (HCC) HCC (hepatocellular carcinoma) (HCC) Maira Pineda CRNP [address] [place] [address] Phone: tel: fax: Referral ID Status Reason Start Date Expiration Date Visits Requested Visits Authorized [id number] Pending Review Specialty Services Required 01/17/2025 999 [...] st Contact Info) Description 01/17/2025 Telephone Gastroenterology, [facility] [address] [facility] [place] [address] Maira Pineda CRNP [address] [place] [address] Referral Allergies Active Allergy Reactions Criticality Noted [...] 07/05/2023 Hepatic encephalopathy 03/28/2022 Overview (12/06/2022): admitted [facility], ammonia 110 Aortic stenosis, moderate [...] file Not on file Not on file 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 Not on file [...] that the pt is currently admitted in [place] with decompensated hepatic cirrhosis XIOMARA Domingo 01/17/2025 [...] 01/23/2025 3:00 PM EDT Office Visit Pharmacy, [address] [place] [address] [place] [address] 02/04/2025 12:30 PM EDT Office Visit Gastroenterology, [facility] [address] [place] [phone] Maira Pineda CRNP [address] [place] [address] 03/10/2025 7:20 AM EDT Office Visit Family [address] [place] [phone] Krystian Palomo MD [address] [place] [address] [place] [address] 03/20/2025 10:30 AM EDT Office Visit Cardiology, [facility] [address] [place] [phone] Chino Carrillo PA-C [address] [place] [address] 04/18/2025 10:30 AM EDT Office Visit Gastroenterology, [facility] [address] [place] [phone] Maira Pineda CRNP [address] [place] [address] 06/02/2025 10:00 AM EDT Office Visit Family Medicine [address] [place] [phone] Krystian Palomo MD [address] [place] [address] [place] [address] 09/11/2025 2:00 PM EST Imaging Radiology [address] [place] [address] Scheduled Procedures Name Priority Associated Diagnoses Date/Ti [...] encounter Medical Devices Implanted Type Area Manager Talent Acquisition Device Identifier Shelf Expiration Date Model / Serial / Lot Lipiodol Injection - [id number] [facility]ed:[facility] 04/28/2026 [id number] Syr Pf 2ml Embospheres 100-300 - [id number] Implanted:Qty: [facility] [id number] 02/26/2026 S220GH / / [id number] Syr Pf 2ml Embospheres 100-300 - [id number] Implanted:Qty: 1 on 04/11/2024 at [facility] [employer] [id number] 12/27/2026 S220GH / / [id number] Lipiodol Injection - [id number] Implanted:Qty: 1 on 04/11/2024 at [facility] [employer] [id number] documented as of this encounter Visit Diagnoses [...] Advance Directives occurred with: Patient Care Teams Neurology Tech Relationship Specialty Start Date End Date Krystian Palomo MD [address] [place] [address] [place] [address] PCP - General Family Medicine 12/22/23 documented as of this encounter
--- OUTSIDE RECORDS SUMMARY | 2025-02-07 23:36 | External Medical Summary | Summary of Care ---
Author Name Unknown Organization [facility] Address [address] [facility] [address] Phone [phone] Care Team Providers Care Certified Court/Medical Interpreter Name Role Phone Krystian Palomo MD Primary Care Provide r Encounter Details Date Type Department Care Team (Late st Contact Info) Description 01/14/2025 Orders Only Gastroenterology, [facility] [address] [place] [address] Ren Pineda CRNP [address] [place] [address] Cirrhosis of liver with ascites, unspecified hepatic [...] (12/06/2022): admitted [facility], ammonia 110 Aortic [...] file Not on file Not on file 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 Not on file [...] 01/23/2025 3:00 PM EDT Office Visit Pharmacy, [address] [place] [address] [place] [address] 02/04/2025 12:30 PM EDT Office Visit Gastroenterology, [facility] [address] [place] [phone] Ren Pineda CRNP [address] [address] 03/10/2025 7:20 AM EDT Office Visit Family Medicine [address] [place] [phone] Krystian Palomo MD [address] [place] [address] [place] [address] 03/20/2025 10:30 AM EDT Office Visit Cardiology, [facility] [address] [place] [address] Chino Carrillo PA-C [address] [place] [address] 04/18/2025 10:30 AM EDT Office Visit Gastroenterology, [facility] [address] [place] [phone] Ren Pineda CRNP [address] [place] [address] 06/02/2025 10:00 AM EDT Office Visit Family Medicine [address] [place] [phone] Krystian Palomo MD [address] [place] [address] [place] [address] 09/11/2025 2:00 PM EST Imaging Radiology [address] [place] [address] Scheduled Procedures Name Priority Associated Diagnoses Date/Ti [...] this encounter Medical Devices Implanted Type Area Avaya Engineer Device Identifier Shelf Expiration Date Model / Serial / Lot Lipiodol Injection - [id number] Implanted:Qty: 1 on 08/02/2023 at [facility] [email or web address] 04/28/2026 35219-62 \[id number] Syr Pf 2ml Embospheres 100-300 - [id number] Implanted:Qty: 1 on 08/02/2023 at [facility] [employer] [id number] 02/26/2026 S220GH / / [id number] Syr Pf 2ml Embospheres 100-300 - [id number] Implanted:Qty: 1 on 04/11/2024 at [facility] [employer] [id number] 12/27/2026 S220GH / / [id number] Lipiodol Injection - [id number] Implanted:Qty: 1 on 04/11/2024 at [facility] [email or web address] [address]-01 documented as of this encounter Procedures Procedure Name Priority Date/Time Associated Diagnosis Comments US ABDOMINAL PARACENTESIS Routine 01/13/2025 Cirrhosis of liver with ascites, unspecified hepatic cirrhosis type (HCC) documented in this encounter Results * US ABDOMINAL PARACENTESIS (01/13/2025) Anatomical Region Laterality Modality Abdomen, Body Other 01/13/2025 us Ren BALDERRAMA RAD ULTRASOUND Final Resu lt documented in this encounter Visit Diagnoses Diagnosis Cirrhosis of liver with ascites, unspecified hepatic cirrhosis type (HCC) documented in this encounter Advance Directives * Full Code (Latest Code Status on File) Date Activated Date Inactivated Comments 12/05/2024 11:24 PM 12/07/2024 5:18 PM This order re flects the patients wishes and were consensually agreed upon. Question Answer Comments Discussion of Advance Directives occurred with: Patient Care Teams Certified Court/Medical Interpreter Relationship Specialty Start Date End Date Krystian Palomo MD [address] [place] [address] [place] [address] PCP - General Family Medicine 12/22/23 documented as of this encounter
--- OUTSIDE RECORDS SUMMARY | 2025-02-07 23:36 | External Medical Summary ---
Author Name Unknown Address Unknown Organization K01:[facility] [place] [address] [place] [address] Laboratory Report Ordering Provider Test Date Status ROSIE GUERRERO 01/14/2025 22:24:00 Final Observation Date Value Abnormality Reference (Units ) Status Albumin 01/14/2025 22:24:00 2.5 Below low normal 3.8-5.0 (g/dL) Final AST (Aspartate aminotransferase) 01/14/2025 22:24:00 51 Above high normal 10-50 (U/L) Final Alk Phos 01/14/2025 22:24:00 148 Above high normal 35-130 (U/L) Final ALT (Alanine aminotransferase) 01/14/2025 22:24:00 38 10-50 (U/L) Final Bilirubin, Total 01/14/2025 22:24:00 2.8 Above high normal <=1.2 (mg/dL) Final Bilirubin, Direct 01/14/2025 22:24:00 1.2 Above high normal 0.0-0.3 (mg/dL) Final Protein 01/14/2025 22:24:00 5.1 Below low normal 6.0-8.3 (g/dL) Final Performing Location [facility] [place] [address] [place] [address]
--- OUTSIDE RECORDS SUMMARY | 2025-02-07 23:36 | External Medical Summary | Summary of Care ---
Author Name Unknown Organization [facility] Address [address] [place] [address] Phone [phone] Care Team Providers Care Theology Professor Name Role Phone Krystian Palomo MD Primary Care Provide r Reason for Visit * Reason Onset Date Comments Appointment 01/14/2025 Left message for patient to call back for an appointment with Dr. Magaña for a TIPs procedure Encounter Details Date Type Department Care Team (Late st Contact Info) Description 01/14/2025 Telephone [facility] [address] [place] [address] ADDRESS AVAILABLE Appointment (Left message for patient to c... Allergies Active Allergy Reactions Criticality Noted Date [...] the morning and 2 Tablets before bedtime. Active Nadolol 40 MG Oral Tablet (Corgard) Take 0.25 Tablets by mouth in the morning. 5 Active Pantoprazole Sodium 40 MG Oral Tablet Delayed Release (Protonix) Take 1 Tablet by mouth in the morning and 1 Tablet before bedtime. 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 Magaña for a TIPs procedure documented in this encounter Plan of Treatment Upcoming Encounters Date Type Department Care Team (Late st Contact Info) Description 01/23/2025 3:00 PM EDT Office Visit Pharmacy, [address] [place] [address] [place] [address] 02/04/2025 12:30 PM EDT Office Visit Gastroenterology, [address] [place] [phone] Ren Pineda CRNP [address] [place] [address] 03/10/2025 7:20 AM EDT Office Visit [address] [place] [address] Krystian Palomo MD [address] [place] [address] [place] [address] 03/20/2025 10:30 AM EDT Office Visit Cardiology, [facility] [address] [place] [address] Chino Carrillo PA-C [address] [place] [address] 04/18/2025 10:30 AM EDT Office Visit Gastroenterology, [facility] [address] [place] [address] Ren Pineda CRNP [address] [place] [address] 06/02/2025 10:00 AM EDT Office Visit [address] [place] [phone] Krystian Palomo MD [address] [place] [address] [place] [address] 09/11/2025 2:00 PM EST Imaging Radiology [address] [place] [address] Scheduled Procedures Name Priority Associated Diagnoses Date/Ti [...] this encounter Medical Devices Implanted Type Area Educational Fundraising Director Device Identifier Shelf Expiration Date Model / Serial / Lot Lipiodol Injection - [id number] Implanted:Qty: 1 on 08/02/2023 at [facility] [employer] 04/28/2026 47903-38 -[id number] Syr Pf 2ml Embospheres 100-300 - [id number] Implanted:Qty: 1 on 08/02/2023 at [facility] [employer] [id number] 02/26/2026 S220GH / / [id number] Syr Pf 2ml Embospheres 100-300 - [id number] Implanted:Qty: 1 on 04/11/2024 at [facility] [employer] [id number] 12/27/2026 S220GH / / [id number] Lipiodol Injection - [id number] Implanted:Qty: 1 on 04/11/2024 at [facility] [employer] [id number] 2 documented as of this encounter Advance Directives * Full Code (Latest Code Status on File) Date Activated Date Inactivated Comments 12/05/2024 11:24 PM 12/07/2024 5:18 PM This order re flects the patients wishes and were consensually agreed upon. Question Answer Comments Discussion of Advance Directives occurred with: Patient Care Teams Theology Professor Relationship Specialty Start Date End Date Krystian Palomo MD [address] [place] [address] [place] [address] PCP - General Family Medicine 12/22/23 documented as of this encounter
--- OUTSIDE RECORDS SUMMARY | 2025-02-07 23:36 | External Medical Summary | Summary of Care ---
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 file [...] 01/23/2025 3:00 PM EDT Office Visit Pharmacy, [address] [place] [address] [place] [address] 02/04/2025 12:30 PM EDT Office Visit Gastroenterology, [facility] [address] [place] [address] Ren Pineda CRNP [address] [place] [address] 03/10/2025 7:20 AM EDT Office Visit Family Medicine [address] [place] [phone] Krystian Palomo MD [address] [place] [address] [place] [address] 03/20/2025 10:30 AM EDT Office Visit Cardiology, [facility] [address] [facility] [place] [address] Chino Carrillo PA-C [address] [place] [address] 04/18/2025 10:30 AM EDT Office Visit Gastroenterology, [facility] [address] [place] [address] Ren Pineda CRNP [address] [place] [address] 06/02/2025 10:00 AM EDT Office Visit Family Medicine [address] [place] [phone] Krystian Palomo MD [address] [place] [address] [place] [address] 09/11/2025 2:00 PM EST Imaging Radiology [address] [place] [address] Scheduled Procedures Name Priority Associated Diagnoses Date/Ti [...] exists Depression Screening 09/09/2025 09/09/2024 GFR 01/07/2026 01/13/2025, 12/28, 01/06/2025, Additional history exists Lipid [...] this encounter Medical Devices Implanted Type Area Ore Grader Device Identifier Shelf Expiration Date Model / Serial / Lot Lipiodol Injection - [id number] Implanted:Qty: 1 on [facility]02[facility] [facility] 04/28/2026 12338-57 \[id number] Syr Pf 2ml Embospheres 100-300 - [id number] Implanted:Qty: 1 on 08/02/2023 at [facility] [employer] [id number] 02/26/2026 S220GH / / [id number] Syr Pf 2ml Embospheres 100-300 - [id number] Implanted:Qty: 1 on 04/11/2024 at [facility] [employer] [id number] 12/27/2026 S220GH / / [id number] Lipiodol Injection - [id number] Implanted:Qty: 1 on 04/11/2024 at [facility] [employer] [address]-34 documented as of this encounter Procedures Procedure Name Priority Date/Time Associated Diagnosis Comments CHEMISTRY-OUTSIDE Routine 01/13/2025 documented in this encounter Results * (ABNORMAL) CHEMISTRY-OUTSIDE (01/13/2025) Not all results display below - see scan for full detail OUTSIDE LAB (SEE SCANNED REPORT) Comment:SCAN INCLUDES - BMP, PT, INR, PTT, CBCD CREATININE 0.98 0.6 - 1.4 MG/DL OUTSIDE LAB (SEE SCANNED REPORT) EGFR 88.28 OUTSIDE LA B (SEE SCANNED REPORT) POTASSIUM 3.9 3.5 - 5.1 MMOL/L OUTSIDE LAB (SEE SCANNED REPORT) GLUCOSE 139(A) 70 - 99 MG/DL OUTSIDE LAB (SEE [...] LAB OUTSIDE LAB (SEE SCANNED REPORT) HEMOGLOBIN, [id number] LAB OUTSIDE LAB (SEE SCANNED REPORT) PHOSPHORUS-OUTSID E LAB OUTSIDE LAB (SEE SCANNED REPORT) PTH-OUTSIDE LAB OUTS [place]ES[place] LAB (SEE SCANNED REPORT) MICROALBUMIN RATIO-OUTSIDE LAB OUTSIDE LA B (SEE SCANNED REPORT) PROTEIN, UA-OUTSIDE LAB OUTSIDE LAB (SEE SCANNED REPORT) HGB 6.9(A) 14.0 - 18.0 G/DL OUTSIDE LAB (SEE SCANNED REPORT) 01/13/2025 us Ren BALDERRAMA LABORATORY Final Resu lt OUTSIDE LAB (SEE SCANNED REPORT) documented in this encounter Advance Directives * Full Code (Latest Code Status on File) Date Activated Date Inactivated Comments 12/05/2024 11:24 PM 12/07/2024 5:18 PM This order re flects the patients wishes and were consensually agreed upon. Question Answer Comments Discussion of Advance Directives occurred with: Patient Care Teams Cone Worker Relationship Specialty Start Date End Date Krystian Palomo MD [address] [place] [address] [place] [address] PCP - General Family Medicine 12/22/23 documented as of this encounter
--- OUTSIDE RECORDS SUMMARY | 2025-02-07 23:36 | External Medical Summary | Summary of Care ---
Author Name Unknown Organization [facility] Address [address] [place] [address] Phone [phone] Care Team Providers Care Sr. 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 (5 years old or older) Answer Entry Date Author No 12/05/2024 10:37 PM Lucía Taylor RN documented in this encounter Miscellaneous Notes * Telephone Encounter - Gail De León OSA - 01/14/2025 9:44 AM EDT [facility] calling they are out of network with patient insurance [employer], they are unable tocomplete orders * Telephone Encounter - Daniella Paez CMA - 01/13/2025 2:58 PM EDT Sent the orders and notes to [facility]. * Addendum Note - Joann Collier [...] Morning, Nurse at [facility] called on mutual patient to request an order for wheel chair and hospital bed. Please call patients sister Snow Spencer at [phone] to discuss. Thank you XIOMARA Maurer documented in this encounter Plan of Treatment Upcoming Encounters Date Type Department Care Team (Late st Contact Info) Description 01/23/2025 3:00 PM EDT Office Visit Pharmacy, [address] [place] [address] [place] [address] 02/04/2025 12:30 PM EDT Office Visit Gastroenterology, [facility] [address] [place] [phone] Ren Pineda CRNP [address] [place] [address] 03/10/2025 7:20 AM EDT Office Visit Family Medicine [address] [place] [phone] Joann Collier MD [address] [place] [address] [place] [address] 03/20/2025 10:30 AM EDT Office Visit Cardiology, [facility] [address] [place] [address] Chino Carrillo PA-C [address] [place] [address] 04/18/2025 10:30 AM EDT Office Visit Gastroenterology, [facility] [address] [place] [phone] Ren Pineda CRNP [address] [place] [address] 06/02/2025 10:00 AM EDT Office Visit Family Medicine [address] [place] [phone] Joann Collier MD [address] [place] [address] [place] [address] 09/11/2025 2:00 PM EST Imaging Radiology [address] [place] [address] Scheduled Procedures Name Priority Associated Diagnoses Date/Ti [...] Depression Screening 09/09/2025 09/09/2024 GFR 01/13/2026 01/13/2025, 0310/2024, 01/06/2025, Additional history exists Lipid Panel 09/18/2028 [...] this encounter Medical Devices Implanted Type Area Applied Computer Science Professor Device Identifier Shelf Expiration Date Model / Serial / Lot Lipiodol Injection - [id number] Implanted:Qty: 1 on 08/02/2023 at [facility] [employer] 04/28/2026 [id number] Syr Pf 2ml Embospheres 100-300 - [id number] Implanted:Qty: 1 [facility] [id number] 02/26/2026 S220GH / / [id number] Syr Pf 2ml Embospheres 100-300 - [id number] Implanted:Qty: 1 on 04/11/2024 at [facility] [employer] [id number] 12/27/2026 S220GH / / [id number] Lipiodol Injection - [id number] Implanted:Qty: 1 on 04/11/2024 at [facility] [employer] [id number] documented as of this encounter Visit Diagnoses [...] Advance Directives occurred with: Patient Care Teams Sr. Social Media & Mobile Manager Relationship Specialty Start Date End Date Joann Collier MD [address] [place] [address] [place] [phone] PCP - General Family Medicine 12/22/23 documented as of this encounter
--- OUTSIDE RECORDS SUMMARY | 2025-02-07 23:36 | External Medical Summary ---
Author Name Unknown Address Unknown Organization K01:LABORATORY [facility] - [address] [place] [address] Laboratory Report Ordering Provider Test Date Status ROSIE GUERRERO 01/14/2025 22:24:00 Final Observation Date Value Abnormality Reference (Units ) Status Magnesium 01/14/2025 22:24:00 2.3 1.5-2.6 (m g/dL) Final Performing Location [facility] - [address] [place] [address]
--- OUTSIDE RECORDS SUMMARY | 2025-02-07 23:36 | External Medical Summary | Summary of Care ---
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 * Addendum Note - Joann [...] 11:17 AM EDT Good Morning, Nurse at [facility] called on mutual patient to request an order for wheel chair and hospital bed. Please call patients sister Snow Spencer at [phone] to discuss. Thank you XIOMARA Maurer documented in this encounter Plan of Treatment Upcoming Encounters Date Type Department Care Team (Late st Contact Info) Description 01/23/2025 3:00 PM EDT Office Visit Pharmacy, [address] [place] [address] [place] [address] 02/04/2025 12:30 PM EDT Office Visit Gastroenterology, [facility] [address] [place] [phone] Ren Pineda CRNP [address] [place] [address] 03/10/2025 7:20 AM EDT Office Visit Family Medicine [address] [place] [phone] Joann Collier MD [address] [place] [address] [place] [address] 03/20/2025 10:30 AM EDT Office Visit Cardiology, [facility] [address] [place] [address] Chino Carrillo PA-C [address] [place] [address] 04/18/2025 10:30 AM EDT Office Visit Gastroenterology, [facility] [address] [place] [phone] Ren Pineda CRNP [address] [place] [address] 06/02/2025 10:00 AM EDT Office Visit Family Medicine [address] [place] [phone] Joann Collier MD [address] [place] [address] [place] [address] 09/11/2025 2:00 PM EST Imaging Radiology [address] [place] [address] Scheduled Procedures Name Priority Associated Diagnoses Date/Ti [...] encounter Medical Devices Implanted Type Area Copy Center Specialist Device Identifier Shelf Expiration Date Model / Serial / Lot Lipiodol Injection - [id number] Implanted:Qty: 1 on 08/02/2023 at [employer] [facility] 04/28/2026 [id number] Syr Pf 2ml Embospheres 100-300 - [id number] Implanted:Qty: 1 on 08/02/[address] [facility] [employer] [id number] 02/26/2026 S220GH / / [id number] Syr Pf 2ml Embospheres 100-300 - [id number] Implanted:Qty: 1 on 04/11/[address] [facility] [employer] [id number] 12/27/2026 S220GH / / [id number] Lipiodol Injection - [id number] Implanted:Qty: 1 on 04/11/[address] [facility] [employer] 18520-03 documented as of this encounter Visit Diagnoses [...] Advance Directives occurred with: Patient Care Teams Vest Maker Relationship Specialty Start Date End Date Joann Collier MD [address] [place] [address] [place] [phone] PCP - General Family Medicine 12/22/23 documented as of this encounter
--- OUTSIDE RECORDS SUMMARY | 2025-02-07 23:36 | External Medical Summary ---
Author Name Unknown Address Unknown Organization K01:LABORATORY [facility] - [address] [place] [address] Laboratory Report Ordering Provider Test Date Status CESAR,ROSIE 01/14/2025 22:24:00 Final Observation Date Value Abnormality Reference (Units ) Status ABO 01/14/2025 22:24:00 A Final RH 01/14/2025 22:24:00 Positive Final RED BLOOD CELL ANTIBODY SCREEN 01/14/2025 22:24:00 Negative Final SPECIMEN EXPIRATION DATE 01/14/2025 22:24:00 01/17/2025 23:59 Final Performing Location [facility] - [address] [place] [address]
--- OUTSIDE RECORDS SUMMARY | 2025-02-07 23:36 | External Medical Summary | Summary of Care ---
Author Name Unknown Organization [facility] Address [address] [place] [address] Phone [phone] Care Team Providers Care Distribution System Operator Name Role Phone Joann Palomo MD Primary Care Provide r Reason for Visit * Reason Onset Date Comments Order Request 01/10/2025 Encounter Details Date Type Department Care Team (Late st Contact Info) Description 01/10/2025 Telephone Family Medicine [address] [address] Joann Palomo MD [address] [place] [address] [place] [address] Order Request Allergies Active Allergy Reactions [...] Hepatic encephalopathy 03/28/2022 Overview (12/06/2022): admitted 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 * Addendum Note - Joann Palomo MD [...] 11:17 AM EDT Good Morning, Nurse at [facility] called on mutual patient to request an order for wheel chair and hospital bed. Please call patients sister Snow Spencer at [phone] to discuss. Thank you XIOMARA Maurer documented in this encounter Plan of Treatment Upcoming Encounters Date Type Department Care Team (Late st Contact Info) Description 01/23/2025 3:00 PM EDT Office Visit Pharmacy, [address] [place] [address] [place] [address] 02/04/2025 12:30 PM EDT Office Visit Gastroenterology, [facility] [address] [place] [address] Ren Pineda CRNP [address] [place] [address] 03/10/2025 7:20 AM EDT Office Visit Family [address] [place] [phone] Joann Palomo MD [address] [place] [address] [place] [address] 03/20/2025 10:30 AM EDT Office Visit Cardiology, [facility] [address] [facility] [place] [address] Chino Carrillo PA-C [address] [place] [address] 04/18/2025 10:30 AM EDT Office Visit Gastroenterology, [facility] [address] [place] [address] Ren Pineda CRNP [address] [place] [address] 06/02/2025 10:00 AM EDT Office Visit Family [address] [place] [phone] Joann Palomo MD [address] [place] [address] [place] [address] 09/11/2025 2:00 PM EST Imaging Radiology [address] [place] [address] Scheduled Procedures Name Priority Associated Diagnoses Date/Ti [...] this encounter Medical Devices Implanted Type Area Guest Relations Agent Device Identifier Shelf Expiration Date Model / Serial / Lot Lipiodol Injection - [id number] Implanted:Qty: 1 on 08/02/2023 at [facility] [employer] 04/28/2026 25537-99 [id number] Syr Pf 2ml Embospheres 100-300 - [id number] Implanted:Qty: 1 on 08/02/2023 at [facility] [employer] [id number] 02/26/2026 S220GH / / [id number] Syr Pf 2ml Embospheres 100-300 - [id number] Implanted:Qty: 1 on 04/11/2024 at [facility] [employer] [id number] 12/27/2026 S220GH / / [id number] Lipiodol Injection - [id number] Implanted:Qty: 1 on 04/11/2024 at [facility] [employer] [id number] documented as of this encounter Visit Diagnoses [...] Advance Directives occurred with: Patient Care Teams Distribution System Operator Relationship Specialty Start Date End Date Joann Palomo MD [address] [place] [address] [place] [address] PCP - General Family Medicine 12/22/23 documented as of this encounter
--- OUTSIDE RECORDS SUMMARY | 2025-02-07 23:36 | External Medical Summary ---
Author Name Unknown Address Unknown Organization K01:LABORATORY [facility] - [address] [place] [address] Laboratory Report Ordering Provider Test Date Status ROSIE GUERRERO 01/14/2025 22:24:00 Final Observation Date Value Abnormality Reference (Units ) Status BUN 01/14/2025 22:24:00 20 6-20 (mg/dL) Final Creatinine 01/14/2025 22:24:00 1.0 0.6-1.2 (mg/dL) Final Glomerular filtration rate/1.73 sq M.predicted [Volume Rate/Area] in Serum, Plasma or Blood by Creatinine-based formula (CKD-EPI) 01/14/2025 22:24:00 85 >=60 (mL/min) Final eGFR is calculated based on the CKD-EPI 2020 equation. Sodium 01/14/2025 22:24:00 125 Below low normal 135 -146 (mmol/L) Final Potassium 01/14/2025 22:24:00 4.1 3.5-5.1 (m mol/L) Final Cl 01/14/2025 22:24:00 93 Below low normal 98- 107 (mmol/L) Final CO2 01/14/2025 22:24:00 23 22-32 (mmo l/L) Final Anion gap 01/14/2025 22:24:00 9 7-15 (mmol /L) Final Glucose 01/14/2025 22:24:00 167 Above high normal 70 -120 (mg/dL) Final Calcium 01/14/2025 22:24:00 7.9 Below low normal 8.4 -10.2 (mg/dL) Final Performing Location LABORATORY [facility] - [address] [place] [address]
--- OUTSIDE RECORDS SUMMARY | 2025-02-07 23:36 | External Medical Summary | Summary of Care ---
Author Name Unknown Organization [facility] Address [address] [facility] [address] Phone [phone] Care Team Providers Care Director Of Online Education Name Role Phone Krystian Palomo MD Primary Care Provide r Reason for Visit * Reason Onset Date Comments Test Results Lab 01/13/2025 Encounter Details Date Type Department Care Team (Late st Contact Info) Description 01/13/2025 Telephone Gastroenterology, [facility] [address] [place] [address] Ren Pineda CRNP [address] [place] [address] Test Results Lab Allergies Active Allergy Reactions [...] 3 mL 2 5 Active Potassium Chloride Mayram ER 10 MEQ Oral Tablet Extended ReleaseIndications: [...] file Not on file Not on file 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 Provider to [facility] hospitalist. Bernice lantigua texted hospitalist. Pt currently in ED being evaluated. * Telephone Encounter - Ren Pineda CRNP - 01/13/2025 9:09 AM EDT Pt needs a one unit OP RBC infusion. Yvette, can you set this up? If not SOB/dizzy, it be arranged for the same day as his next paracentesis? * Telephone Encounter - Ana Root LPN - 01/13/2025 8:44 AM EDT Call received from Devorah at [facility] Lab. Critical results obtained: HGB- 6.9 HCT- 20.0 documented in this encounter Plan of Treatment Upcoming Encounters Date Type Department Care Team (Late st Contact Info) Description 01/23/2025 3:00 PM EDT Office Visit Pharmacy, [address] [place] [address] [place] [address] 02/04/2025 12:30 PM EDT Office Visit Gastroenterology, [facility] [address] [place] [address] Ren iPneda CRNP [address] [place] [address] 03/10/2025 7:20 AM EDT Office Visit Family Medicine [address] [place] [address] Krystian Palomo MD [address] [place] [address] [place] [address] 03/20/2025 10:30 AM EDT Office Visit Cardiology, [facility] [address] [place] [address] Chino Carrillo PA-C [address] [place] [address] 04/18/2025 10:30 AM EDT Office Visit Gastroenterology, [facility] [address] [place] [address] Ren Pineda CRNP [address] [place] [address] 06/02/2025 10:00 AM EDT Office Visit Family Medicine [address] [place] [address] Krystian Palomo MD [address] [place] [address] [place] [address] 09/11/2025 2:00 PM EST Imaging Radiology [address] [place] [address] Scheduled Procedures Name Priority Associated Diagnoses Date/Ti [...] this encounter Medical Devices Implanted Type Area Sole Scraper Device Identifier Shelf Expiration Date Model / Serial / Lot Lipiodol Injection - [id number] Implanted:Qty: 1 [facility] 04/28/20[facility] 31806-98 [id number] Syr Pf 2ml Embospheres 100-300 - [id number] Implanted:Qty: 1 on 08/02/2023 at [facility] [employer] [id number] 02/26/2026 S220GH / / [id number] Syr Pf 2ml Embospheres 100-300 - [id number] Implanted:Qty: 1 [email or web address] [employer] [id number] 12/27/2026 S220GH / / [id number] Lipiodol Injection - [id number] Implanted:Qty: 1 on 04/11/2024 at [facility] [employer] 22107-66 01 -2 / / documented as of this encounter Advance Directives * Full Code (Latest Code Status on File) Date Activated Date Inactivated Comments 12/05/2024 11:24 PM 12/07/2024 5:18 PM This order re flects the patients wishes and were consensually agreed upon. Question Answer Comments Discussion of Advance Directives occurred with: Patient Care Teams Director Of Online Education Relationship Specialty Start Date End Date Krystian Palomo MD [address] [place] [address] [place] [address] PCP - General Family Medicine 12/22/23 documented as of this encounter
--- OUTSIDE RECORDS SUMMARY | 2025-02-07 23:36 | External Medical Summary | Summary of Care ---
Author Name Unknown Organization [facility] Address [address] [facility] [address] Phone [phone] Care Team Providers Care Pantry Goods Worker Name Role Phone Krystian Palomo MD Primary Care Provide r Reason for Visit * Reason Onset Date Comments Test Results Lab 01/13/2025 Encounter Details Date Type Department Care Team (Late st Contact Info) Description 01/13/2025 Telephone Gastroenterology, [facility] [address] [place] [address] Ren Pineda CRNP [address] [place] [address] Test Results Lab Allergies Active Allergy Reactions [...] file Not on file 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 Provider to [facility] hospitalist. Bernice lantigua texted hospitalist. Pt [...] AM EDT Call received from Devorah at [facility] Lab. Critical results obtained: HGB- 6.9 HCT- 20.0 documented in this encounter Plan of Treatment Upcoming Encounters Date Type Department Care Team (Late st Contact Info) Description 01/23/2025 3:00 PM EDT Office Visit Pharmacy, [address] [place] [address] [place] [address] 02/04/2025 12:30 PM EDT Office Visit Gastroenterology, [facility] [address] [place] [address] Ren Pineda CRNP [address] [place] [address] 03/10/2025 7:20 AM EDT Office Visit Family Medicine [address] [place] [address] Krystian Palomo MD [address] [place] [address] [place] [address] 03/20/2025 10:30 AM EDT Office Visit Cardiology, [facility] [address] [place] [address] Chino Carrillo PA-C [address] [place] [address] 04/18/2025 10:30 AM EDT Office Visit Gastroenterology, [facility] [address] [place] [address] Ren Pineda CRNP [address] [place] [address] 06/02/2025 10:00 AM EDT Office Visit Family Medicine [address] [place] [address] Krystian Palomo MD [address] [place] [address] [place] [address] 09/11/2025 2:00 PM EST Imaging Radiology [address] [place] [address] Scheduled Procedures Name Priority Associated Diagnoses Date/Ti [...] this encounter Medical Devices Implanted Type Area Membership Assistant Device Identifier Shelf Expiration Date Model / Serial / Lot Lipiodol Injection - [id number] Implanted:Qty: 1 on [facility] 04/[facility]20[facility] [address]1624-54 [id number] Syr Pf 2ml Embospheres 100-300 - [id number] Implanted:Qty: 1 on 08/02/2023 at [facility] [employer] [id number] 02/26/2026 S220GH / / [id number] Syr Pf 2ml Embospheres 100-300 - [id number] Implanted:Qty: 1 [facility] [employer] [id number] 12/27/2026 S220GH / / [id number] Lipiodol Injection - [id number] Implanted:Qty: 1 on 04/11/2024 at [facility] [employer] 22180-98 01 -2 / / documented as of this encounter Advance Directives * Full Code (Latest Code Status on File) Date Activated Date Inactivated Comments 12/05/2024 11:24 PM 12/07/2024 5:18 PM This order re flects the patients wishes and were consensually agreed upon. Question Answer Comments Discussion of Advance Directives occurred with: Patient Care Teams Pantry Goods Worker Relationship Specialty Start Date End Date Krystian Palomo MD [address] [place] [address] [place] [address] PCP - General Family Medicine 12/22/23 documented as of this encounter
--- OUTSIDE RECORDS SUMMARY | 2025-02-07 23:36 | External Medical Summary ---
Author Name Unknown Address Unknown Organization : Laboratory Report Ordering Provider Test Date Status MARIA LUISA YOUNG 01/14/2025 23:27:23 Final Observation Date Value Abnormality Reference (Units ) Status Glucose Point of Care 01/14/2025 23:27:23 167 Above high normal 70-120 (mg/dL) Final Performing Location
--- OUTSIDE RECORDS SUMMARY | 2025-02-07 23:36 | External Medical Summary ---
Author Name Unknown Address Unknown Organization K01:LABORATORY [facility] - [address] [place] [address] Laboratory Report Ordering Provider Test Date Status CESAR,VELEZ 01/14/2025 22:24:00 Final Warfarin Therapy
INR: 2 .0-3.0 conventional anticoagulation
INR: 2.5- 3.5 high intensity anticoagulation Observation Date Value Abnormality Reference (Units ) Status PT 01/14/2025 22:24:00 22.9 Above high normal 11 .6-15.2 (seconds) Final INR 01/14/2025 22:24:00 2.0 Above high normal 0. 8-1.2 Final Performing Location LABORATORY [facility] - [address] [place] [address]
--- NOTE | 2025-02-08 02:20 | History & Physical Report ---
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 Patient was admitted in first week of December with shortness of breath and acute blood loss anemia with hemoglobin 6.8 and received 1 unit of PRBC. During the admission he was status post EGD which showed portal hypertensive gastropathy and portal duodenopathy and did fine and was discharged home. Patient was again admitted on 01/13/2025 as patient was found to be lethargic when undergoing routine paracentesis and found to have large left pleural effusion and also recurrent blood loss anemia and hepatic encephalopathy and also found to left rib fracture from falls. Patient was status post chest tube placement on 01/13/2025 and status post paracentesis with 7 L of fluid removed and patient was transferred to [place] for TIPS procedure on 01/14/2025. Patient was also treated for possible SBP for 5 days with Rocephin and was started on ciprofloxacin 5 mg daily for SBP prophylaxis. Patient is status post TIPS procedure on 01/27/2025. His midodrine was increased to15 mg 3 times daily. He was placed on torsemide 10 mg daily and spironolactone 50 mg daily. Patient was discharged on 01/29/2025 from [place]. Patient lives at home with his mother and brother. Patient says he was doing okay after TIPS procedure. Currently not required paracentesis after TIPS procedure. Today he rolled and slipped from the bed and fell down around 2 PM. He was very weak on arms and legs and could not get up. He laid on the floor until his brother came at 6:30 PM. And he was able to get up but he was very weak to get into the couch and was brought in here. Denies any fevers. Denies chest pain. Denies shortness of breath. Appetite is okay. Denies headache. No cough. No runny nose. No nausea. No abdominal pain. States he is moving bowels only once daily currently. Micturating okay. Generalized weakness Fall Acute compression fracture of L1 and L2 Pain control Orthospine consult when available PT OT when stable BERT Creatinine 1.5 Gentle fluids Hold diuretics with potassium supplements for now Close monitor Questionable pneumonia on chest x-ray Patient has no cough or shortness of breath and afebrile Will follow CT chest Wells liver cirrhosis On lactulose and Xifaxan Total bili 3.6 same as previous labs Holding torsemide and spironolactone and potassium supplements for now Continue midodrine 15 mg p.o. 3 times daily Getting gentle fluids Patient is getting evaluated for liver transplant Monitor for volume overload Ascites From above Used to get frequent paracentesis Recently had TIPS procedure Holding diuretics for BERT Getting gentle fluids Will monitor Hyponatremia On sodium tablets Follow repeat labs Moderate aortic stenosis Pulmonary hypertension Follow-up with cardiology History of hepatocellular carcinoma/liver lesions Patient received embolization of the right lower lobe lesion in 07/2023 Repeat MRI in 01/2024 showed treatment cavity enhancement patient subsequently treated with TACE MRI on 11/14/2024 showed abnormalities in hepatic segment 7 and currently as per patient getting SBRT Diabetes Continue home Lantus Sliding scale Close monitor Anemia Hemoglobin 8.9 Will follow labs Thrombocytopenia From liver cirrhosis Platelets 53 Will monitor History of left hepatic hydrothorax Recent needed chest tube placement History of gout Allopurinol BPH On Flomax Monitor for urinary retention Hyperlipidemia On Lipitor DVT prophylaxis SCDs Disposition Med/telemetry History of Present Illness Chief Complaint: Fall and weakness Primary Care Provider: Krystian Palomo MD 59-year-old male with past medical history significant for type 2 diabetes, hyperlipidemia, chronic idiopathic gout, history of hepatic encephalopathy, pr imary hypertension, moderate aortic stenosis, 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 Patient was admitted in first week of December with shortness of breath and acute blood loss anemia with hemoglobin 6.8 and received 1 unit of PRBC. During the admission he was status post EGD which showed portal hypertensive gastropathy and portal duodenopathy and did fine and was discharged home. Patient was again admitted on 01/13/2025 as patient was found to be lethargic when undergoing routine paracentesis and found to have large left pleural effusion and also recurrent blood loss anemia and hepatic encephalopathy and also found to left rib fracture from falls. Patient was status post chest tube placement on 01/13/2025 and status post paracentesis with 7 L of fluid removed and patient was transferred to [place] for TIPS procedure on 01/14/2025. Patient was also treated for possible SBP for 5 days with Rocephin and was started on ciprofloxacin 5 mg daily for SBP prophylaxis. Patient is status post TIPS procedure on 01/27/2025. His midodrine was increased to15 mg 3 times daily. He was placed on torsemide 10 mg daily and spironolactone 50 mg daily. Patient was discharged on 01/29/2025 from [place]. Patient lives at home with his mother and brother. Patient says he was doing okay after TIPS procedure. Currently not required paracentesis after TIPS procedure. Today he rolled and slipped from the bed and fell down around 2 PM. He was very weak on arms and legs and could not get up. He laid on the floor until his brother came at 6:30 PM. And he was able to get up but he was very weak to get into the couch and was brought in here. Denies any fevers. Denies chest pain. Denies shortness of breath. Appetite is okay. Denies headache. No cough. No runny nose. No nausea. No abdominal pain. States he is moving bowels only once daily currently. Micturating okay. Past medical history. As mentioned above Past surgical history. Colonoscopy. EGD. IR biopsy. IR cancer chemoembolization. Status post chest tube placement. Status post TIPS procedure Social history. Quit smoking 2004. Chews tobacco. No alcohol use. No drug use. Family history. Mother had colon cancer. Hypertension. Father had diabetes. Emphysema. Hypertension. Black lung. Corneal transplant. Brother has pacemaker. Diabetes. Heart attack. Hypertension. Hyperlipidemia. Liver disease. Sister has rheumatoid arthritis. Allergies Allergy/AdvReac Type Severity Reaction Status Date / Time aspirin AdvReac Intermediate NOSE Verified 02/07/25 21:33 BLEEDS--IF TAKES REGULARLY salicylates AdvReac Intermediate NOSE BLEEDS Verified 02/07/25 21:33 Home Medications Medication Instructions Recorded Confirmed Type allopurinol 300 mg tablet 300 mg PO DAILY 12/29/24 02/07/25 History ascorbic acid (vitamin C) 1,000 mg 1 g PO DAILY 12/29/24 02/07/25 History tablet atorvastatin 20 mg tablet 20 mg PO DAILY 12/29/24 02/07/25 History insulin degludec 100 unit/mL (3 10 unit subcut DAILY 12/29/24 02/07/25 History mL) subcutaneous pen lactulose 10 gram/15 mL oral 45 ml PO TID 12/29/24 02/07/25 History solution magnesium chloride 64 mg 64 mg PO DAILY 12/29/24 02/07/25 History (magnesium chloride) tablet,delayed release (Mag-Delay) multivitamin 1 tab PO DAILY 12/29/24 02/07/25 History rifaximin 550 mg tablet (Xifaxan) 550 mg PO BID 12/29/24 02/07/25 History sodium chloride 1,000 mg soluble 1,000 mg PO DAILY 12/29/24 02/07/25 History tablet tamsulosin 0.4 mg capsule 0.4 mg PO DAILY 12/29/24 02/07/25 History pantoprazole 40 mg tablet,delayed 40 mg PO BID #60 tabs 12/31/24 02/07/25 Rx release Lactobacillus acidophilus 10 10,000 mmu cells PO BID 01/08/25 02/07/25 History billion cell capsule (Probiotic) docusate sodium 100 mg capsule 100 mg PO BID 01/08/25 02/07/25 History mupirocin 2 % topical ointment 1 applic topical TID PRN Skin 01/08/25 02/07/25 History Irritation ciprofloxacin HCl 500 mg tablet 500 mg PO DAILY 02/07/25 02/07/25 History midodrine 5 mg tablet 15 mg PO TID 02/07/25 02/07/25 History potassium chloride 20 mEq 40 meq PO BID 02/07/25 02/07/25 History tablet,extended release(part/cryst) spironolactone 50 mg tablet 50 mg PO DAILY 02/07/25 02/07/25 History torsemide 10 mg tablet 10 mg PO DAILY 02/07/25 02/07/25 History vitamin E (dl, acetate) 180 mg 180 mg PO DAILY 02/07/25 02/07/25 History (400 unit) capsule Past Med/Surg History Problem List (Updated 02/08/25 @ 01:51 by Ken Lyons MD) Lumbar compression fracture (Acute) BERT (acute kidney injury) (Acute) Generalized weakness (Acute) Recurrent falls while walking (Acute) Pleural effusion on left Anemia SOB (shortness of breath) Abdominal ascites (Acute) Hypoalbuminemia (Acute) Hypokalemia (Acute) Hernia, umbilical (Acute) Thyroid lesion Mass of soft tissue of neck Acute dyspnea (Acute) Pleural effusion (Acute) Pleural effusion Hypokalemia (Acute) Hypomagnesemia (Acute) Constipation (Acute) Abdominal pain (Acute) Hyponatremia Orthostatic hypotension Dizziness (Acute) Medical non-compliance (Acute) Hyperammonemia (Acute) Ascites (Acute) Urinary retention Cirrhosis (Acute) Morbid obesity Hepatic encephalopathy Liver cirrhosis secondary to WELLS (Acute) Thrombocytopenia Hyperlipidemia Gout Diabetes mellitus, type 2 NIDDM Medical History Pleural effusion BPH (benign prostatic hyperplasia) Ureterolithiasis Hepatocellular carcinoma s/p IR embolization Pulmonary hypertension Diabetes mellitus NAFLD (nonalcoholic fatty liver disease) Chronic hyponatremia Dizziness r/t the cirrhosis - using a cane at this time. "if i get up to fast". S/P abdominal paracentesis Fracture of rib of right side 2013 Anaplasmosis 2019 Acute hepatic encephalopathy Cardiac murmur HX Hypertension Right rib fracture hx ~. Surgical History History of esophagogastroduodenoscopy (EGD) History of colonoscopy Family History Mother History of colonoscopy Cancer Colon Brother Family history of diabetes mellitus Brother Family history of diabetes mellitus Grandmother (Paternal) Family history of diabetes mellitus Other No family history of adverse response to anesthesia Social History Smoking Status: Former smoker Tobacco Type: Cigarettes and Smokeless Tobacco (Dip or Chew) packs per day: 0.25; Cigarettes Per Day: 1/2 PPD; Smoking End Date: "22 years ago"; Second Hand Exposure: No; Do You Dip or Chew Tobacco: No; Hx Alcohol Use: Yes Hx Substance Use: No Preferred Language: [place] Communication Ability: Effective Hearing Ability: Normal Poker Manager Required: No Beliefs That Will Affect Care: None marital status: Single Current Living Situation: Family Current Living Situation Comment: lives with mom and brother Other Information That Helps Us Care for You: No Feels Safe at Home: Yes Safety Concerns: Feels Safe At This Time Assistive Devices: Glasses and Walker Review of Systems Review of Systems: All systems reviewed & are unremarkable except as noted in HPI & below Physical Exam Physical Exam: General- Not in distress Head- atraumatic Eyes- PERRL. ENT- oropharynx dry Neck- supple, no JVD. Lungs- clear to auscultation no wheezing or crackles Heart- regular rhythm; esm murmur, no gallop. Abdomen- normal bowel sounds, soft, nontender, no distension Extremities- no pretibial edema, bruise seen on knees more on right knee. Neuro- alert, oriented PERRL, no facial palsy; no dysarthria; moves extremities Results & Data Results & Data Vital Signs (Past 12 Hours) Vital Signs Temp Pulse Pulse Resp BP BP Pulse Ox 02/08/25 01:00 98 H 16 98/65 L 98 02/07/25 23:00 100 H 18 104/62 97 02/07/25 22:30 98 H 19 100/73 02/07/25 22:24 99 H 14 02/07/25 22:10 99 H 02/07/25 21:45 100 H 17 96 02/07/25 21:30 95/61 L 02/07/25 21:06 107 H 17 96 02/07/25 20:51 104 H 16 98 02/07/25 20:30 106/61 02/07/25 20:21 94 H 19 94 02/07/25 20:15 97 H 18 95 02/07/25 19:36 94 H 13 97 02/07/25 19:30 96/56 L 02/07/25 19:00 95/65 L 02/07/25 19:00 91 H 14 96 02/07/25 18:38 95 H 24 94 02/07/25 18:30 95 H 19 96/53 L 93 02/07/25 18:19 93 H 02/07/25 18:17 36.9 C 98 H 19 97/62 L 95 O2 Del Method 02/08/25 01:00 Room Air 02/07/25 23:00 Room Air 02/07/25 22:30 02/07/25 22:24 02/07/25 22:10 02/07/25 21:45 02/07/25 21:30 02/07/25 21:06 02/07/25 20:51 02/07/25 20:30 02/07/25 20:21 02/07/25 20:15 02/07/25 19:36 02/07/25 19:30 02/07/25 19:00 02/07/25 19:00 02/07/25 18:38 Room Air 02/07/25 18:30 02/07/25 18:19 02/07/25 18:17 Room Air Diagnostic Findings Laboratory Results WBC 5.17 K/ul (4.8-10.8) 02/07/25 18:16 RBC 2.87 M/uL (4.70-6.10) L 02/07/25 18:16 Hgb 8.9 g/dl (14.0-18.0) L 02/07/25 18:16 Hct 26.9 % (42.0-52.0) L 02/07/25 18:16 MCV 93.7 fL (80.0-100.0) 02/07/25 18:16 MCH 31.0 pg (25.0-34.0) 02/07/25 18:16 MCHC 33.1 g/dL (32.0-36.0) 02/07/25 18:16 RDW Std Deviation 74.4 fL (36.4-46.3) H 02/07/25 18:16 RDW Coeff of [place] 22.0 % (11.5-14.5) H 02/07/25 18:16 Plt Count 53 K/uL (130-400) L 02/07/25 18:16 MPV 10.5 fL (9.4-12.4) 02/07/25 18:16 Immature Gran % (Auto) 0.2 % 02/07/25 18:16 Neut % (Auto) 66.7 % 02/07/25 18:16 Lymph % (Auto) 6.6 % 02/07/25 18:16 [place] % (Auto) 23.2 % 02/07/25 18:16 Eos % (Auto) 2.1 % 02/07/25 18:16 Baso % (Auto) 1.2 % 02/07/25 18:16 Neut # (Auto) 3.45 K/uL (1.40-6.50) 02/07/25 18:16 Lymph # (Auto) 0.34 K/uL (1.20-3.40) L 02/07/25 18:16 [place] # (Auto) 1.20 K/uL (0.11-0.59) H 02/07/25 18:16 Eos # (Auto) 0.11 K/uL (0.00-0.50) 02/07/25 18:16 Baso # (Auto) 0.06 K/uL (0.00-0.20) 02/07/25 18:16 Immature Gran # (Auto) 0.01 K/uL (0.01-0.20) 02/07/25 18:16 Polychromasia 1+ 02/07/25 18:16 Anisocytosis Present 02/07/25 18:16 PT 18.1 Seconds (9.0-12.0) H 02/07/25 18:16 INR 1.8 (0.9-1.1) H 02/07/25 18:16 Sodium 130 mmol/L (136-145) L 02/07/25 18:16 Potassium 4.7 mmol/L (3.5-5.1) 02/07/25 18:16 Chloride 98 mmol/L (98-107) 02/07/25 18:16 Carbon Dioxide 29 mmol/L (21-32) 02/07/25 18:16 Anion Gap 3 (3-11) 02/07/25 18:16 BUN 16 mg/dl (6-23) 02/07/25 18:16 Creatinine 1.53 mg/dl (0.6-1.4) H 02/07/25 18:16 Est Cr Clr Drug Dosing 62.6 ml/min 02/07/25 18:16 eGFR 51.72 02/07/25 18:16 BUN/Creatinine Ratio 10.5 (10-20) 02/07/25 18:16 Glucose 157 mg/dl (70-99(Fasting)) H 02/07/25 18:16 Calcium 8.0 mg/dl (8.6-10.3) L 02/07/25 18:16 Phosphorus 2.6 mg/dl (2.5-4.9) 02/07/25 18:16 Magnesium 2.1 mg/dl (1.7-2.4) 02/07/25 18:16 Total Bilirubin 3.6 mg/dl (0.2-1.0) H 02/07/25 18:16 AST 94 U/L (13-39) H 02/07/25 18:16 ALT 31 U/L (7-52) 02/07/25 18:16 Alkaline Phosphatase 258 U/L (34-104) H 02/07/25 18:16 Total Protein 5.2 gm/dl (6.0-8.3) L 02/07/25 18:16 Albumin 2.3 gm/dl (3.4-5.0) L 02/07/25 18:16 Globulin 2.9 gm/dl (2.5-4.0) 02/07/25 18:16 Albumin/Globulin Ratio 0.8 (0.9-2) L 02/07/25 18:16 TSH 2.056 uIu/ml (0.300-4.500) 02/07/25 18:16 Urine Color Yellow 02/07/25 19:45 Urine Appearance Clear (Clear) 02/07/25 19:45 Urine pH 7.5 (4.5-7.5) 02/07/25 19:45 Ur Specific [place] 1.012 (1.000-1.030) 02/07/25 19:45 Urine Protein Negative (Negative) 02/07/25 19:45 Urine Glucose (UA) Negative (Negative) 02/07/25 19:45 Urine Ketones Negative (Negative) 02/07/25 19:45 Urine Blood Negative (Negative) 02/07/25 19:45 Urine Nitrite Negative (Negative) 02/07/25 19:45 Urine Bilirubin Negative (Negative) 02/07/25 19:45 Urine Urobilinogen Negative (Negative) 02/07/25 19:45 Ur Leukocyte Esterase Negative (Negative) 02/07/25 19:45 Impressions Chest X-Ray 02/07/25 18:25 Clinical History: Weakness Technique: A frontal view of the chest was obtained Comparison is made to the prior examination dated 01/14/2025 Findings: There is worsened diffuse interstitial prominence, concerning for mild pulmonary edema. There is more focal opacity in the left lung base could be due to either atelectasis or pneumonia. The heart size is within normal limits. No pleural effusion or pneumothorax is seen. There are suspected small calcified pulmonary granulomas No fracture is noted. No foreign body is seen Impression: 1. Mild pulmonary edema 2. Left lung base opacity that could be due to either atelectasis or pneumonia ACT 112: Positive. There are findings on this exam that require communication between the performing entity and the patient following Patient Test Result Information Act ([place] ACT 112) guidelines. Electronically signed by Adrian Hi 02-07-2025 7:10 PM Knee X-Ray 02/07/25 19:22 EXAM: Radiographs of the Left Knee 3 Views INDICATION: Posttraumatic pain TECHNIQUE: Three views of the left knee. COMPARISON: 01/08/2025 FINDINGS: Bones/joints: There is a subacute unhealed, anatomically aligned fracture of the left fibular neck with some developing callus. Osseous structures otherwise appear normal. No dislocation or subluxation. Smooth articular surfaces. No erosion or loose body. Soft tissues: No abnormality noted. No radiopaque foreign body noted. IMPRESSION: There is a subacute, unhealed, anatomically aligned fracture of the left fibular neck with developing callus. ACT 112: N/A Electronically signed by Abida Javier 02-07-2025 8:[address] 02/07/25 19:22 Exam(s): CT L SPINE EXAM: CT Lumbar Spine Without Intravenous Contrast CLINICAL HISTORY: pain fall. TECHNIQUE: Axial computed tomography images of the lumbar spine without intravenous contrast. CTDI is 39.4 mGy and DLP is 1207.88 mGy-cm. Automated exposure control was utilized for the study. A dose lowering technique was utilized adhering to the principles of ALARA. COMPARISON: 01/08/2025. FINDINGS: Vertebrae: Bones are osteopenic. Interval mild approximately 30% anterior superior wedge compression deformity of the L1 vertebral body without posterior retropulsion. Interval development of approximately 10% mild compression deformity of the L2 vertebral body without posterior retropulsion. No other fracture. Maintenance of height of the remainder of the lumbar vertebral bodies. No spondylolisthesis. Discs/spinal canal/neural foramina: Mild degenerative changes greatest at L3-4 through L5-S1, unchanged. Soft tissues: No paraspinal collection. Atherosclerotic vascular calcifications. IMPRESSION: Acute compression fractures of the L1 and L2 vertebral bodies without posterior retropulsion. Otherwise no change. Electronically signed by: Avni Hinds M.D. 02/07/25 23:[address] 02/07/25 19:22 Exam(s): CT PELVIS Without Contrast EXAM: CT Pelvis Without Intravenous Contrast CLINICAL HISTORY: pain fall. TECHNIQUE: Axial computed tomography images of the pelvis without intravenous contrast. CTDI is 34.22 mGy and DLP is 982.43 mGy-cm. Automated exposure control was utilized for the study. A dose lowering technique was utilized adhering to the principles of ALARA. COMPARISON: CT pelvis 12/05/2024 FINDINGS: Bowel: Abundant stool throughout the colon. No evidence for diverticulitis. Increased mild low density pelvic free fluid/ascites, slightly increased as compared prior study. Appendix: No findings to suggest acute appendicitis. Intraperitoneal space: Unremarkable. No free air. No significant fluid collection. Bladder: Partially contracted with nonspecific wall thickening. No stones. Reproductive: Unremarkable as visualized. Bones/joints: No acute fracture. No dislocation. Degenerative changes of the spine Soft tissues: Right posterior subcutaneous soft tissue overlying the upper right gluteal muscles. Redemonstrated fluid filled periumbilical hernia 3.6 x 6.7 cm, without involvement of bowel. Vasculature: Atherosclerotic vascular calcifications. No lower abdominal aortic aneurysm. Lymph nodes: Unremarkable. No enlarged lymph nodes. IMPRESSION: Subcutaneous bruising/infiltration overlying the upper right gluteal muscles. No acute fracture or dislocation. Mild increase ascites Electronically signed by: Avni Hinds M.D. 02/07/25 22:55 PM ECG Additional Comments: ECG. Normal sinus rhythm rate of 95. No significant change was found. Code Status & VTE Plan VTE Prophylaxis Plan VTE Prophylaxis will be ordered: Yes
[2025-02-08] MEDS: SODIUM CHLORIDE 0.9% 1,000 ML IV SCH (03:40)
[2025-02-08] MEDS ORDERED: NITROGLYCERIN SL 0.4 MG/TAB TAB SL PRN (03:55)
[2025-02-08] MEDS ORDERED: GLUCOSE 10 TAB/TUBE PO PRN (05:09)
[2025-02-08] MEDS ORDERED: DEXTROSE 50% 50 ML SYRINGE IV PRN (05:09)
[2025-02-08] MEDS ORDERED: CARBOHYDRATES FOR HYPOGLYCEMIA PO PRN (05:09)
[2025-02-08] MEDS ORDERED: GLUCOSE 40% GEL 15 GM TUBE PO PRN (05:09)
[2025-02-08] MEDS ORDERED: GLUCAGON FOR INJ 1 MG VIAL SQ PRN (05:09)
[2025-02-08] MEDS: MIDODRINE HCL 2.5 MG TAB PO SCH (06:20)
[2025-02-08 08:09] LABS: Basophils # (auto) 0.09 K/uL (0.00-0.20); Basophils % (auto) 1.8 %; Eosinophils # (auto) 0.12 K/uL (0.00-0.50); Eosinophils % (auto) 2.4 %; Hematocrit (blood only) 25.7 % (42.0-52.0); Hemoglobin 8.7 g/dl (14.0-18.0); Immature Granulocytes # (auto) 0.02 K/uL (0.01-0.20); Immature Granulocytes % (auto) 0.4 %; Lymphocytes # (auto) 0.44 K/uL (1.20-3.40); Lymphocytes % (auto) 8.9 %; Mean Corpuscular Hemoglobin 31.8 pg (25.0-34.0); Mean Corpuscular Hgb Conc 33.9 g/dL (32.0-36.0); Mean Corpuscular Volume 93.8 fL (80.0-100.0); Mean Platelet Volume 10.4 fL (9.4-12.4); Monocytes # (auto) 1.21 K/uL (0.11-0.59); Monocytes % (auto) 24.4 %; Neutrophils # (auto) 3.07 K/uL (1.40-6.50); Neutrophils % (auto) 62.1 %; Platelet Count 56 K/uL (130-400); RDW Coefficient of Variation 21.7 % (11.5-14.5); RDW Standard Deviation 70.9 fL (36.4-46.3); Red Blood Count 2.74 M/uL (4.70-6.10); White Blood Count 4.95 K/ul (4.8-10.8)
[2025-02-08 08:24] LABS: BUN Creatinine Ratio 11.2 (10-20); Calcium 8.1 mg/dl (8.6-10.3); Magnesium 2.1 mg/dl (1.7-2.4); Potassium 3.9 mmol/L (3.5-5.1)
[2025-02-08 08:49] LABS: Acanthocytes 1+; Anisocytosis Present
[2025-02-08] MEDS: INSULIN ASPART PER UNIT CHARGE SC SCH (08:49)
[2025-02-08] MEDS: ASCORBIC ACID 500 MG TAB PO SCH (09:10)
[2025-02-08] MEDS: MULTIVITAMIN TAB PO SCH (09:10)
[2025-02-08] MEDS: allopurinoL 300 MG TAB PO SCH (09:10)
[2025-02-08] MEDS: TOCOPHERYL, DL-ALPHA 400 UNITS 180 MG CAP PO SCH (09:10)
[2025-02-08] MEDS: PANTOprazole 40 MG TAB PO SCH (09:11)
[2025-02-08] MEDS: CIPROFLOXACIN 500 MG TAB PO SCH (09:11)
[2025-02-08] MEDS: ATORVASTATIN 20 MG TAB PO SCH (09:11)
[2025-02-08] MEDS: MAGNESIUM CHLORIDE W/CALCIUM 64MG DELAYED REL TAB PO SCH (09:11)
[2025-02-08] MEDS: TAMSULOSIN HCL 0.4 MG CAP PO SCH (09:11)
[2025-02-08] MEDS: rifAXIMin 550 MG TABLET PO SCH (09:11)
[2025-02-08] MEDS: SODIUM CHLORIDE 1 GM TABLET PO SCH (09:11)
[2025-02-08] MEDS: ADVANCED PROBIOTIC 625 MG CAPSULE PO SCH (09:11)
[2025-02-08] MEDS: DOCUSATE SODIUM 100 MG CAP PO SCH (09:21)
[2025-02-08] MEDS: LANTUS PER UNIT CHARGE SQ SCH (09:21)
[2025-02-08] MEDS: LACTULOSE SYRUP 30 GM/45 ML UDP PO SCH (09:35)
--- NOTE | 2025-02-08 10:10 | Orthopedic Consultation ---
Date of Consultation February 08, 2025 Assessment & Plan (1) Fracture of left proximal fibula: (2) Lumbar compression fracture: (3) Recurrent falls while walking: (4) Anemia: (5) SOB (shortness of breath): (6) Abdominal ascites: (7) Hypoalbuminemia: (8) Hypokalemia: (9) Hernia, umbilical: (10) Thyroid lesion: (11) Mass of soft tissue of neck: (12) Acute dyspnea: (13) Constipation: (14) Abdominal pain: (15) Orthostatic hypotension: (16) Medical non-compliance: (17) Ascites: (18) Morbid obesity: (19) Cirrhosis: (20) Hepatic encephalopathy: (21) Gout: (22) Diabetes mellitus, type 2: Ricki Desai is a very medically complex gentleman who presents to the hospital for generalized weakness and malaise. Upon initial evaluation the emergency department, bilateral knee x-rays were obtained and on the left, a subacute proximal fibula fracture was identified. For this, orthopedics was consulted. Additionally, the patient did have lumbar vertebral compression fracture is noted for which orthopedic spine has been consulted. Of the guards the patient's left proximal fibula, this does appear to be a subacute injury with callus formation present. I explained to the patient in great detail the nature of this injury. We discussed the pathoanatomy, pathop hysiology, treatment options. I did express to him that sometimes proximal fibula fractures can represent a Maisonneuve type injury where and this is actually an ankle injury, however considering the fracture is not spiral in nature, shows abundant callus formation, and the patient is not tender to palpation about his ankle, I do not have a high level of suspicion for this. Considering the subacute nature of this, even if this did represent a Maisonneuve injury, I do not believe surgical intervention would be warranted at this time. I have no real restrictions for the patient regarding his left lower extremity. He can follow-up with his primary care provider for this and with orthopedics in the future on an as-needed basis. With the guards the patient's lumbar compression fractures, do recommend spine surgical consultation. Orthopedics will sign off with regards to his left proximal fibula at this time. History of Present Illness Reason for Consultation: left proximal fibula fracture Attending Physician: Nemo Quintero MD History of Present Illness Lloyd is a 59-year-old gentleman who is quite medically complex with a past medical history of type 2 diabetes, hyperlipidemia, chronic idiopathic gout, history of hepatic encephalopathy, primary hypertension, moderate aortic stenosis, liver cirrhosis secondary to GONZALES, diverticulosis of colon, BPH, thrombocytopenia comes because of fall and weakness. Patient was most recently admitted in first week of December with shortness of breath and acute blood loss anemia with hemoglobin 6.8 and received 1 unit of PRBC. During the admission he was status post EGD which showed portal hypertensive gastropathy and portal duodenopathy and did fine and was discharged home. Patient was again admitted on 01/13/2025 as patient was found to be lethargic when undergoing routine paracentesis and found to have large left pleural effusion and also recurrent blood loss anemia and hepatic encephalopathy and also found to left rib fracture from falls. Patient was status post chest tube placement on 01/13/2025 and status post paracentesis with 7 L of fluid removed and patient was transferred to [place] for TIPS procedure on 01/14/2025. Patient was also treated for possible SBP for 5 days with Rocephin and was started on ciprofloxacin 5 mg daily for SBP prophylaxis. Patient is status post TIPS procedure on 01/27/2025. His midodrine was increased to15 mg 3 times daily. He was placed on torsemide 10 mg daily and spironolactone 50 mg daily. Patient was discharged on 01/29/2025 from [place]. Patient lives at home with his mother and brother. Patient says he was doing okay after TIPS procedure. Currently not required paracentesis after TIPS procedure. Today he rolled and slipped from the bed and fell down around 2 PM. He was very weak on arms and legs and could not get up. He laid on the floor until his brother came at 6:30 PM. And he was able to get up but he was very weak to get into the couch and was brought in here. Denies any fevers. Denies chest pain. Denies shortness of breath. Appetite is okay. Denies headache. No cough. No runny nose. No nausea. No abdominal pain. States he is moving bowels only once daily currently. Micturating okay. the emergency department he did have bilateral knee pain as well as back pain so images were obtained. The left knee x-rays demonstrated a subacute proximal fibula fracture with callus formation and as such orthopedics was consulted. Additionally his lumbar spine films demonstrated compression fractures for which spine has been consulted. at current, the patient notes he is having absolutely no pain in his knee. He states that he feels much better than he did last evening. Allergies Allergy/AdvReac Type Severity Reaction Status Date / Time aspirin AdvReac Intermediate NOSE Verified 02/07/25 21:33 BLEEDS--IF TAKES REGULARLY salicylates AdvReac Intermediate NOSE BLEEDS Verified 02/07/25 21:33 Home Medications Medication Instructions Recorded Confirmed Type allopurinol 300 mg tablet 300 mg PO DAILY 12/29/24 02/07/25 History ascorbic acid (vitamin C) 1,000 mg 1 g PO DAILY 12/29/24 02/07/25 History tablet atorvastatin 20 mg tablet 20 mg PO DAILY 12/29/24 02/07/25 History insulin degludec 100 unit/mL (3 10 unit subcut DAILY 12/29/24 02/07/25 History mL) subcutaneous pen lactulose 10 gram/15 mL oral 45 ml PO TID 12/29/24 02/07/25 History solution magnesium chloride 64 mg 64 mg PO DAILY 12/29/24 02/07/25 History (magnesium chloride) tablet,delayed release (Mag-Delay) multivitamin 1 tab PO DAILY 12/29/24 02/07/25 History rifaximin 550 mg tablet (Xifaxan) 550 mg PO BID 12/29/24 02/07/25 History sodium chloride 1,000 mg soluble 1,000 mg PO DAILY 12/29/24 02/07/25 History tablet tamsulosin 0.4 mg capsule 0.4 mg PO DAILY 12/29/24 02/07/25 History pantoprazole 40 mg tablet,delayed 40 mg PO BID #60 tabs 12/31/24 02/07/25 Rx release Lactobacillus acidophilus 10 10,000 mmu cells PO BID 01/08/25 02/07/25 History billion cell capsule (Probiotic) docusate sodium 100 mg capsule 100 mg PO BID 01/08/25 02/07/25 History mupirocin 2 % topical ointment 1 applic topical TID PRN Skin 01/08/25 02/07/25 History Irritation ciprofloxacin HCl 500 mg tablet 500 mg PO DAILY 02/07/25 02/07/25 History midodrine 5 mg tablet 15 mg PO TID 02/07/25 02/07/25 History potassium chloride 20 mEq 40 meq PO BID 02/07/25 02/07/25 History tablet,extended release(part/cryst) spironolactone 50 mg tablet 50 mg PO DAILY 02/07/25 02/07/25 History torsemide 10 mg tablet 10 mg PO DAILY 02/07/25 02/07/25 History vitamin E (dl, acetate) 180 mg 180 mg PO DAILY 02/07/25 02/07/25 History (400 unit) capsule Patient History Medical History Pleural effusion BPH (benign prostatic hyperplasia) Ureterolithiasis Hepatocellular carcinoma s/p IR embolization Pulmonary hypertension Diabetes mellitus NAFLD (nonalcoholic fatty liver disease) Chronic hyponatremia Dizziness r/t the cirrhosis - using a cane at this time. "if i get up to fast". S/P abdominal paracentesis Fracture of rib of right side 2013 Anaplasmosis 2019 Acute hepatic encephalopathy Cardiac murmur HX Hypertension Right rib fracture hx ~2013/2014. Surgical History History of esophagogastroduodenoscopy (EGD) History of colonoscopy Family History Mother History of colonoscopy Cancer Colon Brother Family history of diabetes mellitus Brother Family history of diabetes mellitus Grandmother (Paternal) Family history of diabetes mellitus Other No family history of adverse response to anesthesia Social History Smoking Status: Former smoker Tobacco Type: Cigarettes and Smokeless Tobacco (Dip or Chew) packs per day: 0.25; Cigarettes Per Day: 1/2 PPD; Smoking End Date: "22 years ago"; Second Hand Exposure: No; Do You Dip or Chew Tobacco: No; Hx Alcohol Use: Yes Hx Substance Use: No Preferred Language: Azeri Communication Ability: Effective Hearing Ability: Normal [employer] Teacher Required: No Beliefs That Will Affect Care: None marital status: Single Current Living Situation: Family Current Living Situation Comment: lives with mom and brother Other Information That Helps Us Care for You: No Feels Safe at Home: Yes Safety Concerns: Feels Safe At This Time Assistive Devices: Glasses and Walker Review of Systems Review of Systems: All systems reviewed & are unremarkable except as noted in HPI & below Physical Exam Physical Exam: On physical examination, the patient is nontender to palpation about his knee. He has stable anterior/posterior/varus/valgus testing. He is nontender palpation about his ankle. He has no pain with tibia/fib squeeze. He has no pain with external rotation of the foot Results & Data Vital Signs (Past 12 Hours) Vital Signs Temp Pulse Pulse Resp BP BP Pulse Ox 02/08/25 07:58 36.7 C 90 17 92/58 L 99 02/08/25 05:45 92 H 02/08/25 04:25 02/08/25 04:08 99 H 17 98/61 L 97 02/08/25 03:58 93 H 02/08/25 03:48 36.6 C 91 H 20 96/59 L 97 02/08/25 03:00 93 H 17 105/69 02/08/25 02:05 104 H 02/08/25 01:00 98 H 16 98/65 L 98 02/07/25 23:00 100 H 18 104/62 97 02/07/25 22:30 98 H 19 100/73 02/07/25 22:24 99 H 14 O2 Del Method 02/08/25 07:58 Room Air 02/08/25 05:45 02/08/25 04:25 Room Air 02/08/25 04:08 Room Air 02/08/25 03:58 02/08/25 03:48 Room Air 02/08/25 03:00 02/08/25 02:05 02/08/25 01:00 Room Air 02/07/25 23:00 Room Air 02/07/25 22:30 02/07/25 22:24 Diagnostic Findings X-rays of bilateral knees previously obtained were personally interpreted and reviewed. There are no acute osseous abnormalities noted on the right knee. There is a proximal fibular head fracture noted on the left with callus formation. This is subacute. No additional abnormalities appreciated. (2) Lumbar compression fracture Encounter type: initial encounter Lumbar vertebra fracture level: unspecified lumbar vertebra Qualified Code(s): S32.000A - Wedge compression fracture of unspecified lumbar vertebra, initial encounter for closed fracture (6) Abdominal ascites Ascites type: other type Qualified Code(s): R18.8 - Other ascites (13) Constipation Constipation type: unspecified constipation type Qualified Code(s): K59.00 - Constipation, unspecified (14) Abdominal pain Abdominal location: generalized Qualified Code(s): R10.84 - Generalized abdominal pain (21) Diabetes mellitus, type 2 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
--- NOTE | 2025-02-08 12:32 | Electrocardiogram Report ---
Test Reason : Blood Pressure : */* mmHG Vent. Rate : 95 BPM Atrial Rate : 95 BPM P-R Int : 160 ms QRS Dur : 88 ms QT Int : 374 ms P-R-T Axes : 48 43 64 degrees QTcB Int : 469 ms Normal sinus rhythm Normal ECG When compared with ECG of 08-Jan-2025 17:36, No significant change was found Confirmed by Rehan Brown [id number]) on 02/08/2025 12:31:57 PM Referred By: REFERRED SELF Confirmed By: Rehan Brown
--- NOTE | 2025-02-08 13:27 | Communication Note ---
Date of Service: February 08, 2025 59-year-old with significant past medical history of type 2 diabetes, cirrhosis with hepatic encephalopathy in the past status post TIPS procedure on 01/27/2025 and other significant medical conditions as mentioned in the H&P was admitted early this morning with an accidental fall from bed while turning around in bed.Noted to have compression fractures of lumbar 1 and 2 but otherwise no other significant injury His labs remain reasonably stable and he remains otherwise stable without significant pain and only complains of aphthous ulceration in the mouth/tongue. He will be evaluated by Ortho and going to have possible conservative management. Full progress note will be done tomorrow. Dr Brice Quintero
[2025-02-08] MEDS: LIDOCAINE VISCOUS 2% 15 ML UDC MT SCH (14:22)
[2025-02-09 06:51] LABS: Basophils # (auto) 0.08 K/uL (0.00-0.20); Basophils % (auto) 1.7 %; Eosinophils # (auto) 0.13 K/uL (0.00-0.50); Eosinophils % (auto) 2.8 %; Hematocrit (blood only) 23.7 % (42.0-52.0); Hemoglobin 8.3 g/dl (14.0-18.0); Immature Granulocytes # (auto) 0.02 K/uL (0.01-0.20); Immature Granulocytes % (auto) 0.4 %; Lymphocytes # (auto) 0.32 K/uL (1.20-3.40); Lymphocytes % (auto) 6.8 %; Mean Corpuscular Hemoglobin 32.4 pg (25.0-34.0); Mean Corpuscular Volume 92.6 fL (80.0-100.0); Mean Platelet Volume 10.2 fL (9.4-12.4); Monocytes # (auto) 1.09 K/uL (0.11-0.59); Monocytes % (auto) 23.1 %; Neutrophils # (auto) 3.07 K/uL (1.40-6.50); Neutrophils % (auto) 65.2 %; Platelet Count 55 K/uL (130-400); RDW Coefficient of Variation 21.9 % (11.5-14.5); RDW Standard Deviation 71.6 fL (36.4-46.3); Red Blood Count 2.56 M/uL (4.70-6.10); White Blood Count 4.71 K/ul (4.8-10.8)
[2025-02-09 07:13] LABS: Albumin Globulin Ratio 0.7 (0.9-2); Albumin Level 2.1 gm/dl (3.4-5.0); BUN Creatinine Ratio 11.1 (10-20); Bilirubin,Total 4.3 mg/dl (0.2-1.0); Creatinine Clr Calc Pharmacy 80.5 ml/min; Globulin 2.9 gm/dl (2.5-4.0); Potassium 3.9 mmol/L (3.5-5.1)
[2025-02-09 07:14] LABS: Anisocytosis Present; Polychromasia 1+
--- NOTE | 2025-02-09 10:37 | Hospitalist Progress Note ---
Date of Service February 09, 2025 Assessment & Plan (1) Generalized weakness: Plan: 59-year-old male with past medical history significant for type 2 diabetes, hyperlipidemia, chronic idiopathic gout, history of hepatic encephalopathy, primary hypertension, moderate aortic stenosis, liver cirrhosis secondary to GONZALES, diverticulosis of colon, BPH, thrombocytopenia comes because of fall and weakness. Patient was admitted in first week of December with shortness of breath and acute blood loss anemia with hemoglobin 6.8 and received 1 unit of PRBC. During the admission he was status post EGD which showed portal hypertensive gastropathy and portal duodenopathy and did fine and was discharged home. Patient was again admitted on 01/13/2025 as patient was found to be lethargic when undergoing routine paracentesis and found to have large left pleural effusion and also recurrent blood loss anemia and hepatic encephalopathy and also found to left rib fracture from falls. Patient was status post chest tube placement on 01/13/2025 and status post paracentesis with 7 L of fluid removed and patient was transferred to [place] for TIPS procedure on 01/14/2025. Patient was also treated for possible SBP for 5 days with Rocephin and was started on ciprofloxacin 5 mg daily for SBP prophylaxis. Patient is status post TIPS procedure on 01/27/2025. His midodrine was increased to15 mg 3 times daily. He was placed on torsemide 10 mg daily and spironolactone 50 mg daily. Patient was discharged on 01/29/2025 from [place]. Patient lives at home with his mother and brother. Patient says he was doing okay after TIPS procedure. Currently not required paracentesis after TIPS procedure. Today he rolled and slipped from the bed and fell down around 2 PM. He was very weak on arms and legs and could not get up. He laid on the floor until his brother came at 6:30 PM. And he was able to get up but he was very weak to get into the couch and was brought in here. Denies any fevers. Denies chest pain. Denies shortness of breath. Appetite is okay. Denies headache. No cough. No runny nose. No nausea. No abdominal pain. States he is moving bowels only once daily currently. Micturating okay. Generalized weakness Fall from bed while turning around without any loss of consciousness Acute compression fracture of L1 and L2 Denies any pain at rest Will get orthospine consult PT OT has been ordered BERT Creatinine 1.5 Gentle fluids Hold diuretics with potassium supplements for now Kidney function has been normalized with creatinine of 1.17 as of 02/10/2024 Has not been getting any more intravenous fluid and diuretics will be restarted on discharge Questionable pneumonia on chest x-ray Patient has no cough or shortness of breath and afebrile Will follow CT chest -still pending Gonzales liver cirrhosis On lactulose and Xifaxan Total bili 3.6 same as previous labs Holding torsemide and spironolactone and potassium supplements for now Continue midodrine 15 mg p.o. 3 times daily Getting gentle fluids Patient is getting evaluated for liver transplant Monitor for volume overload-no signs or symptoms of fluid overload LFTs remains unremarkable Ascites From above Used to get frequent paracentesis Recently had TIPS procedure Holding diuretics for BERT Getting gentle fluids-no more IV fluid Does not have any abdominal distention Hyponatremia On sodium tablets Sodium level has been [address] thrombocytopenia 823 and Moderate aortic stenosis Pulmonary hypertension Follow-up with cardiology History of hepatocellular carcinoma/liver lesions Patient received embolization of the right lower lobe lesion in 07/2023 Repeat MRI in 01/2024 showed treatment cavity enhancement patient subsequently treated with TACE MRI on 11/14/2024 showed abnormalities in hepatic segment 7 and currently as per patient getting SBRT Diabetes Continue home Lantus Sliding scale Close monitor Anemia Hemoglobin 8.9 hemoglobin remained stable at 8.3 and platelet 55 Thrombocytopenia From liver cirrhosis Platelets 53 Will monitor History of left hepatic hydrothorax Recent needed chest tube placement History of gout Allopurinol BPH On Flomax Monitor for urinary retention Hyperlipidemia On Lipitor DVT prophylaxis SCDs Disposition Med/telemetry (2) Fracture of left proximal fibula: (3) Lumbar compression fracture: (4) BERT (acute kidney injury): (5) Recurrent falls while walking: (6) Hyponatremia: (7) Ascites: (8) Cirrhosis: (9) Thrombocytopenia: (10) Diabetes mellitus, type 2: Admission and Anticipated Discharge Date Admission Date: February 08, 2025 Subjective 02/09/2025 The patient was seen and examined medical telemetry unit He has been feeling much better and soreness in the mouth is resolved Has weakness and tiredness but denies any significant pain in the back Will get PT OT evaluation also for placement evaluation prior to discharge Review of Systems Review of Systems: All systems reviewed and are unremarkable except as noted below Physical Exam Physical Exam: Lying in bed without any acute distress Constitutional: well developed, well nourished and + ill appearing Eyes: PERRL, conjunctivae normal, anicteric sclerae ENMT: external ear and nose normal, oropharynx normal Neck: trachea midline, no thyromegaly Respiratory: no respiratory distress Auscultation: lungs clear to auscultation bilaterally Cardiovascular: Rate/Rhythm: regular rate and regular rhythm; not tachycardic Heart Sounds: normal S1, normal S2 and + murmur Extremities: + edema (Trace edema bilaterally) Gastrointestinal (Abdomen): Inspection/Auscultation: normal bowel sounds; abdomen not distended Percussion/Palpation: abdomen soft; abdomen nontender Musculoskeletal: No acute arthritis involving any of the joints Neurologic: normal touch/pain/proprioception and moves all extremities; no focal motor deficits and not confused Generally weak Lymphatic: no cervical or axillary lymphadenopathy Results & Data Results & Data Vital Signs (Past 12 Hours) Vital Signs Temp Pulse Pulse Resp BP Pulse Ox O2 Del Method 02/09/25 07:36 36.8 C 83 16 101/64 96 Room Air 02/09/25 05:41 80 02/09/25 03:09 36.6 C 94 H 18 93/55 L 96 Room Air 02/08/25 23:35 36.7 C 95 H 18 99/54 L 96 Room Air Laboratory Results Short CBC 02/09/25 Range/Units 06:15 WBC 4.71 L (4.8-10.8) K/ul Hgb 8.3 L (14.0-18.0) g/dl Hct 23.7 L (42.0-52.0) % Plt Count 55 L (130-400) K/uL BMP 02/09/25 06:15 Sodium 130 L Potassium 3.9 Chloride 102 Carbon Dioxide 26 BUN 13 Creatinine 1.17 Glucose 67 L Calcium 8.0 L Liver Function 02/09/25 Range/Units 06:15 Total Bilirubin 4.3 H (0.2-1.0) mg/dl AST 87 H (13-39) U/L ALT 31 (7-52) U/L Alkaline Phosphatase 225 H (34-104) U/L Albumin 2.1 L (3.4-5.0) gm/dl Medications Administered Current Inpatient Medications Allopurinol (Allopurinol 300 Mg Tab) 300 mg PO DAILY [facility] Stop: 03/10/25 08:59 Last Admin: 02/09/25 07:30 Dose: 300 mg Ascorbic Acid (Ascorbic Acid 500 Mg Tab) 1,000 mg PO DAILY [facility] Stop: 03/10/25 08:59 Last Admin: 02/09/25 07:30 Dose: 1,000 mg Atorvastatin Calcium (Atorvastatin 20 Mg Tab) 20 mg PO DAILY [facility] Stop: 03/10/25 08:59 Last Admin: 02/09/25 07:30 Dose: 20 mg Ciprofloxacin (Ciprofloxacin 500 Mg Tab) 500 mg PO DAILY [facility]; Protocol Stop: 03/10/25 08:59 Last Admin: 02/09/25 07:30 Dose: 500 mg Dextrose (Dextrose 50% 50 Ml Syringe) 25 - 50 ml IV UD PRN; Protocol PRN Reason: Hypoglycemia Protocol Stop: 03/10/25 05:08 Docusate Sodium (Docusate Sodium 100 Mg Cap) 100 mg PO BID [facility] Stop: 03/10/25 08:59 Last Admin: 02/09/25 07:30 Dose: 100 mg Glucagon (Glucagon For Inj 1 Mg Vial) 1 mg SQ UD PRN; Protocol PRN Reason: Hypoglycemia Protocol Stop: 03/10/25 05:08 Glucose (Glucose 40% Gel 15 Gm Tube) 15 - 30 gm PO UD PRN; Protocol PRN Reason: Hypoglycemia Protocol Stop: 03/10/25 05:08 Glucose (Glucose 10 Tab/Tube) 4 - 8 tab PO UD PRN; Protocol PRN Reason: Hypoglycemia Protocol Stop: 03/10/25 05:08 Insulin Aspart (Insulin Aspart Per Unit Charge) 0 units SC ACHS [facility] Stop: 03/10/25 07:29 Last Admin: 02/09/25 08:11 Dose: Not Given Insulin Glargine (Lantus Per Unit Charge) 10 units SQ DAILY [facility] Stop: 03/10/25 08:59 Last Admin: 02/09/25 07:29 Dose: 10 units Lactobacillus Acidophilus (Advanced Probiotic 625 Mg Capsule) 1,250 mg PO BID [facility] Stop: 03/10/25 08:59 Last Admin: 02/09/25 07:30 Dose: 1,250 mg Lactulose (Lactulose Syrup 30 Gm/45 Ml Udp) 30 gm PO TID [facility] Stop: 03/10/25 08:59 Last Admin: 02/09/25 07:28 Dose: Not Given Lidocaine HCl (Lidocaine Viscous 2% 15 Ml Udc) 15 ml MT QID [facility] Stop: 03/10/25 12:59 Last Admin: 02/09/25 07:29 Dose: 15 ml Magnesium Chloride (Magnesium Chloride W/Calcium 64mg Delayed Rel Tab) 64 mg PO DAILY [facility] Stop: 03/10/25 08:59 Last Admin: 02/09/25 07:28 Dose: 64 mg Midodrine (Midodrine Hcl 2.5 Mg Tab) 15 mg PO TID@0700,1200,1700 [facility] Stop: 03/10/25 06:59 Last Admin: 02/09/25 06:18 Dose: 15 mg Miscellaneous (Carbohydrates For Hypoglycemia ) 15 - 30 gm PO UD PRN PRN Reason: Hypoglycemia Protocol Stop: 03/10/25 05:08 Multivitamins (Multivitamin Tab) 1 tab PO DAILY [facility] Stop: 03/10/25 08:59 Last Admin: 02/09/25 07:31 Dose: 1 tab Nitroglycerin (Nitroglycerin Sl 0.4 Mg/Tab Tab) 0.4 mg SL Q5M PRN PRN Reason: Chest Pain Stop: 03/10/25 03:54 Pantoprazole Sodium (Pantoprazole 40 Mg Tab) 40 mg PO BID [facility] Stop: 03/10/25 08:59 Last Admin: 02/09/25 07:31 Dose: 40 mg Rifaximin (Rifaximin 550 Mg Tablet) 550 mg PO BID [facility] Stop: 03/10/25 08:59 Last Admin: 02/09/25 07:30 Dose: 550 mg Sodium Chloride (Sodium Chloride 1 Gm Tablet) 1 gm PO DAILY [facility] Stop: 03/10/25 08:59 Last Admin: 02/09/25 07:30 Dose: 1 gm Tamsulosin HCl (Tamsulosin Hcl 0.4 Mg Cap) 0.4 mg PO DAILY [facility] Stop: 03/10/25 08:59 Last Admin: 02/09/25 07:30 Dose: 0.4 mg Tramadol HCl (Tramadol Hcl 50 Mg Tablet) 50 mg PO Q6H PRN PRN Reason: Mod-Sev Pain (Scale 4-10) Stop: 03/10/25 03:54 Vitamin E (Tocopheryl, Dl-Alpha 400 Units 180 Mg Cap) 180 mg PO DAILY [facility] Stop: 03/10/25 08:59 Last Admin: 02/09/25 07:31 Dose: 180 mg (3) Lumbar compression fracture Encounter type: initial encounter Lumbar vertebra fracture level: unspecified lumbar vertebra Qualified Code(s): S32.000A - Wedge compression fracture of unspecified lumbar vertebra, initial encounter for closed fracture (10) Diabetes mellitus, type 2 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
[2025-02-10] MEDS: MIDODRINE HCL 10 MG TAB PO SCH (06:06)
--- NOTE | 2025-02-10 09:35 | Consultation ---
Date of Consultation February 10, 2025 Assessment & Plan (1) Lumbar compression fracture: Imaging and treatment plan has been reviewed with Dr. Devlin. Patient has acute superior endplate compression fractures of L1 and L2 status post fall. Treatment is conservative. I will order bracing. This is to be worn with standing and ambulation only. May remove when in a seated position or laying in bed. Recommend starting physical therapy. Ambulate ad veronica. from a spine standpoint. No lifting over 5 to 10 pounds. He can follow-up in the office in 2 weeks. Will sign off. History of Present Illness Reason for Consultation: Acute L1 and L2 compression fracture status post fall Attending Physician: Nemo Quintero MD History of Present Illness This a pleasant 59-year-old gentleman who presented to the ER on February 07 with complaints of generalized weakness and falling. He lives with his elderly mother and his brother. He has had 2 falls day of presentation to the ER. He has complaints of back pain only when he rolls over in bed. He states he has not been ambulatory since his admission. Typically at home he ambulates with a walker. Denies any lower extremity pain, paresthesia, numbness. Denies bowel or bladder dysfunction. Allergies Allergy/AdvReac Type Severity Reaction Status Date / Time aspirin AdvReac Intermediate NOSE Verified 02/07/25 21:33 BLEEDS--IF TAKES REGULARLY salicylates AdvReac Intermediate NOSE BLEEDS Verified 02/07/25 21:33 Home Medications Medication Instructions Recorded Confirmed Type allopurinol 300 mg tablet 300 mg PO DAILY 12/29/24 02/07/25 History ascorbic acid (vitamin C) 1,000 mg 1 g PO DAILY 12/29/24 02/07/25 History tablet atorvastatin 20 mg tablet 20 mg PO DAILY 12/29/24 02/07/25 History insulin degludec 100 unit/mL (3 10 unit subcut DAILY 12/29/24 02/07/25 History mL) subcutaneous pen lactulose 10 gram/15 mL oral 45 ml PO TID 12/29/24 02/07/25 History solution magnesium chloride 64 mg 64 mg PO DAILY 12/29/24 02/07/25 History (magnesium chloride) tablet,delayed release (Mag-Delay) multivitamin 1 tab PO DAILY 12/29/24 02/07/25 History rifaximin 550 mg tablet (Xifaxan) 550 mg PO BID 12/29/24 02/07/25 History sodium chloride 1,000 mg soluble 1,000 mg PO DAILY 12/29/24 02/07/25 History tablet tamsulosin 0.4 mg capsule 0.4 mg PO DAILY 12/29/24 02/07/25 History pantoprazole 40 mg tablet,delayed 40 mg PO BID #60 tabs 12/31/24 02/07/25 Rx release Lactobacillus acidophilus 10 10,000 mmu cells PO BID 01/08/25 02/07/25 History billion cell capsule (Probiotic) docusate sodium 100 mg capsule 100 mg PO BID 01/08/25 02/07/25 History mupirocin 2 % topical ointment 1 applic topical TID PRN Skin 01/08/25 02/07/25 History Irritation ciprofloxacin HCl 500 mg tablet 500 mg PO DAILY 02/07/25 02/07/25 History midodrine 5 mg tablet 15 mg PO TID 02/07/25 02/07/25 History potassium chloride 20 mEq 40 meq PO BID 02/07/25 02/07/25 History tablet,extended release(part/cryst) spironolactone 50 mg tablet 50 mg PO DAILY 02/07/25 02/07/25 History torsemide 10 mg tablet 10 mg PO DAILY 02/07/25 02/07/25 History vitamin E (dl, acetate) 180 mg 180 mg PO DAILY 02/07/25 02/07/25 History (400 unit) capsule Patient History Medical History Pleural effusion BPH (benign prostatic hyperplasia) Ureterolithiasis Hepatocellular carcinoma s/p IR embolization Pulmonary hypertension Diabetes mellitus NAFLD (nonalcoholic fatty liver disease) Chronic hyponatremia Dizziness r/t the cirrhosis - using a cane at this time. "if i get up to fast". S/P abdominal paracentesis Fracture of rib of right side 2013 Anaplasmosis 2020 Acute hepatic encephalopathy Cardiac murmur HX Hypertension Right rib fracture hx ~. Surgical History History of esophagogastroduodenoscopy (EGD) History of colonoscopy Family History Mother History of colonoscopy Cancer Colon Brother Family history of diabetes mellitus Brother Family history of diabetes mellitus Grandmother (Paternal) Family history of diabetes mellitus Other No family history of adverse response to anesthesia Social History Smoking Status: Former smoker Tobacco Type: Cigarettes and Smokeless Tobacco (Dip or Chew) packs per day: 0.25; Cigarettes Per Day: 1/2 PPD; Smoking End Date: "22 years ago"; Second Hand Exposure: No; Do You Dip or Chew Tobacco: No; Hx Alcohol Use: Yes Hx Substance Use: No Preferred Language: Japanese Communication Ability: Effective Hearing Ability: Normal Jewish History Professor Required: No Beliefs That Will Affect Care: None marital status: Single Current Living Situation: Family Current Living Situation Comment: lives with mom and brother Other Information That Helps Us Care for You: No Feels Safe at Home: Yes Safety Concerns: Feels Safe At This Time Assistive Devices: Walker Review of Systems Review of Systems: All systems reviewed & are unremarkable except as noted in HPI & below Physical Exam Physical Exam: Laying in bed in no acute distress Alert and oriented x 3 He has painful range of motion with rolling over in bed and in the thoracolumbar spine. 5/5 strength bilateral EHL, dorsiflexion , plantarflexion, quadriceps, hamstrings Results & Data Vital Signs (Past 12 Hours) Vital Signs Temp Pulse Pulse Resp BP Pulse Ox O2 Del Method 02/10/25 07:34 36.9 C 85 14 98/59 L 95 Room Air 02/10/25 04:47 37.0 C 88 18 99/62 L 95 Room Air 02/09/25 23:51 36.8 C 95 H 18 91/52 L 96 Room Air 02/09/25 23:06 88 Diagnostic Findings [facility], [place] [phone] CT Scan Report Patient: SATISH HUERTA Admit Date: 02/07/25 MR#: [id number] Address1: [address] [place] [address] Acct ID:[id number] Address2: [address] Date: [address] [facility] Zip: [place] [id number] Age: 59 Location: ED Sex: M Room/Bed: Att Phy: Diagnosis: FALL [place] Phy: Krystian Palomo MD Service Date: 02/07/25 [facility] Phy: Interpreting Phy: Avni Hinds MDAdmit Phy: Ordering Phy: Ken Lyons M.D. cc: ~ Exam(s): CT L SPINE EXAM: CT Lumbar Spine Without Intravenous Contrast CLINICAL HISTORY: pain fall. TECHNIQUE: Axial computed tomography images of the lumbar spine without intravenous contrast. CTDI is 39.4 mGy and DLP is 1207.88 mGy-cm. Automated exposure control was utilized for the study. A dose lowering technique was utilized adhering to the principles of ALARA. COMPARISON: 01/08/2025. FINDINGS: Vertebrae: Bones are osteopenic. Interval mild approximately 30% anterior superior wedge compression deformity of the L1 vertebral body without posterior retropulsion. Interval development of approximately 10% mild compression deformity of the L2 vertebral body without posterior retropulsion. No other fracture. Maintenance of height of the remainder of the lumbar vertebral bodies. No spondylolisthesis. Discs/spinal canal/neural foramina: Mild degenerative changes greatest at L3-4 through L5-S1, unchanged. Soft tissues: No paraspinal collection. Atherosclerotic vascular calcifications. IMPRESSION: Acute compression fractures of the L1 and L2 vertebral bodies without posterior retropulsion. Otherwise no change. Electronically signed by: Avni Hinds M.D. 02/07/25 23:04 PM Dictated: 02/07/252303 Transcribed: 02/07/252303 (1) Lumbar compression fracture Encounter type: initial encounter Lumbar vertebra fracture level: unspecified lumbar vertebra Qualified Code(s): S32.000A - Wedge compression fracture of unspecified lumbar vertebra, initial encounter for closed fracture
--- NOTE | 2025-02-10 12:10 | Hospitalist Progress Note ---
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 Patient was admitted in first week of December with shortness of breath and acute blood loss anemia with hemoglobin 6.8 and received 1 unit of PRBC. During the admission he was status post EGD which showed portal hypertensive gastropathy and portal duodenopathy and did fine and was discharged home. Patient was again admitted on 01/13/2025 as patient was found to be lethargic when undergoing routine paracentesis and found to have large left pleural effusion and also recurrent blood loss anemia and hepatic encephalopathy and also found to left rib fracture from falls. Patient was status post chest tube placement on 01/13/2025 and status post paracentesis with 7 L of fluid removed and patient was transferred to [place] for TIPS procedure on 01/14/2025. Patient was also treated for possible SBP for 5 days with Rocephin and was started on ciprofloxacin 5 mg daily for SBP prophylaxis. Patient is status post TIPS procedure on 01/27/2025. His midodrine was increased to15 mg 3 times daily. He was placed on torsemide 10 mg daily and spironolactone 50 mg daily. Patient was discharged on 01/29/2025 from [place]. Patient lives at home with his mother and brother. Patient says he was doing okay after TIPS procedure. Currently not required paracentesis after TIPS procedure. Today he rolled and slipped from the bed and fell down around 2 PM. He was very weak on arms and legs and could not get up. He laid on the floor until his brother came at 6:30 PM. And he was able to get up but he was very weak to get into the couch and was brought in here. Denies any fevers. Denies chest pain. Denies shortness of breath. Appetite is okay. Denies headache. No cough. No runny nose. No nausea. No abdominal pain. States he is moving bowels only once daily currently. Micturating okay. Generalized weakness Fall from bed while turning around without any loss of consciousness Acute compression fracture of L1 and L2 Denies any pain at rest Will get orthospine consult- appreciate orthospine input recommendation was not to lift more than 10 pounds and continue with physical therapy PT OT has been ordered Remains stable but complains of profound weakness Oral ulceration Looks like Aphthous Was given lidocaine viscus and things are improving Advised to switch and spit out to avoid nausea BERT Creatinine 1.5 Gentle fluids Hold diuretics with potassium supplements for now Kidney function has been normalized with creatinine of 1.17 as of 02/10/2024 Has not been getting any more intravenous fluid and diuretics will be restarted on discharge Kidney function remains stable with BUN/creatinine at 11/11.17 Questionable pneumonia on chest x-ray Patient has no cough or shortness of breath and afebrile Will follow CT chest -still pending Gonzales liver cirrhosis On lactulose and Xifaxan Total bili 3.6 same as previous labs Holding torsemide and spironolactone and potassium supplements for now Continue midodrine 15 mg p.o. 3 times daily Getting gentle fluids Patient is getting evaluated for liver transplant Monitor for volume overload-no signs or symptoms of fluid overload LFTs remains unremarkable Ascites From above Used to get frequent paracentesis Recently had TIPS procedure Holding diuretics for BERT Getting gentle fluids-no more IV fluid Does not have any abdominal distention Hyponatremia On sodium tablets Sodium level has been [address] thrombocytopenia Sodium remains at 130 Moderate aortic stenosis Pulmonary hypertension Follow-up with cardiology History of hepatocellular carcinoma/liver lesions Patient received embolization of the right lower lobe lesion in 07/2023 Repeat MRI in 01/2024 showed treatment cavity enhancement patient subsequently treated with TACE MRI on 11/14/2024 showed abnormalities in hepatic segment 7 and currently as per patient getting SBRT Diabetes Continue home Lantus Sliding scale Close monitor Anemia Hemoglobin 8.9 hemoglobin remained stable at 8.3 and platelet 55 Thrombocytopenia From liver cirrhosis Platelets 53 Will monitor History of left hepatic hydrothorax Recent needed chest tube placement History of gout Allopurinol BPH On Flomax Monitor for urinary retention Hyperlipidemia On Lipitor DVT prophylaxis SCDs Disposition Med/telemetry Awaiting PT and OT evaluation and may need placement (2) Fracture of left proximal fibula: (3) Lumbar compression fracture: (4) BERT (acute kidney injury): (5) Recurrent falls while walking: (6) Hyponatremia: (7) Ascites: (8) Cirrhosis: (9) Thrombocytopenia: (10) Diabetes mellitus, type 2: Admission and Anticipated Discharge Date Admission Date: February 08, 2025 Subjective 02/09/2025 The patient was seen and examined medical telemetry unit He has been feeling much better and soreness in the mouth is resolved Has weakness and tiredness but denies any significant pain in the back Will get PT OT evaluation also for placement evaluation prior to discharge 02/10/2025 The patient was seen and examined in the medical telemetry unit He complains of nausea following taking of lidocaine viscous He denies any other significant symptoms except weakness Awaiting PT and OT evaluation Review of Systems Review of Systems: All systems reviewed and are unremarkable except as noted below Physical Exam Physical Exam: Lying in bed without any acute distress Constitutional: well developed, well nourished and + ill appearing Eyes: PERRL, conjunctivae normal, anicteric sclerae ENMT: external ear and nose normal, oropharynx normal Neck: trachea midline, no thyromegaly Respiratory: no respiratory distress Auscultation: lungs clear to auscultation bilaterally Cardiovascular: Rate/Rhythm: regular rate and regular rhythm; not tachycardic Heart Sounds: normal S1, normal S2 and + murmur Extremities: + edema (Trace edema bilaterally) Gastrointestinal (Abdomen): Inspection/Auscultation: normal bowel sounds; abdomen not distended Percussion/Palpation: abdomen soft; abdomen nontender Neurologic: normal touch/pain/proprioception and moves all extremities; no focal motor deficits and not confused Lymphatic: no cervical or axillary lymphadenopathy Results & Data Results & Data Vital Signs (Past 12 Hours) Vital Signs Temp Pulse Resp BP Pulse Ox O2 Del Method 02/10/25 11:12 36.4 C L 90 14 94/59 L 96 Room Air 02/10/25 09:30 Room Air 02/10/25 07:34 36.9 C 85 14 98/59 L 95 Room Air 02/10/25 04:47 37.0 C 88 18 99/62 L 95 Room Air Medications Administered Current Inpatient Medications Allopurinol (Allopurinol 300 Mg Tab) 300 mg PO DAILY MOODY Stop: 03/10/25 08:59 Last Admin: 02/10/25 09:27 Dose: 300 mg Ascorbic Acid (Ascorbic Acid 500 Mg Tab) 1,000 mg PO DAILY MOODY Stop: 03/10/25 08:59 Last Admin: 02/10/25 09:27 Dose: 1,000 mg Atorvastatin Calcium (Atorvastatin 20 Mg Tab) 20 mg PO DAILY MOODY Stop: 03/10/25 08:59 Last Admin: 02/10/25 09:27 Dose: 20 mg Ciprofloxacin (Ciprofloxacin 500 Mg Tab) 500 mg PO DAILY [facility]; Protocol Stop: 03/10/25 08:59 Last Admin: 02/10/25 09:27 Dose: 500 mg Dextrose (Dextrose 50% 50 Ml Syringe) 25 - 50 ml IV UD PRN; Protocol PRN Reason: Hypoglycemia Protocol Stop: 03/10/25 05:08 Docusate Sodium (Docusate Sodium 100 Mg Cap) 100 mg PO BID MOODY Stop: 03/10/25 08:59 Last Admin: 02/10/25 09:27 Dose: 100 mg Glucagon (Glucagon For Inj 1 Mg Vial) 1 mg SQ UD PRN; Protocol PRN Reason: Hypoglycemia Protocol Stop: 03/10/25 05:08 Glucose (Glucose 40% Gel 15 Gm Tube) 15 - 30 gm PO UD PRN; Protocol PRN Reason: Hypoglycemia Protocol Stop: 03/10/25 05:08 Glucose (Glucose 10 Tab/Tube) 4 - 8 tab PO UD PRN; Protocol PRN Reason: Hypoglycemia Protocol Stop: 03/10/25 05:08 Insulin Aspart (Insulin Aspart Per Unit Charge) 0 units SC ACHS [facility] Stop: 03/10/25 07:29 Last Admin: 02/10/25 09:20 Dose: 4 units Insulin Glargine (Lantus Per Unit Charge) 10 units SQ DAILY [place] Stop: 03/10/25 08:59 Last Admin: 02/10/25 09:19 Dose: 10 units Lactobacillus Acidophilus (Advanced Probiotic 625 Mg Capsule) 1,250 mg PO BID [facility] Stop: 03/10/25 08:59 Last Admin: 02/10/25 09:27 Dose: 1,250 mg Lactulose (Lactulose Syrup 30 Gm/45 Ml Udp) 30 gm PO TID [facility] Stop: 03/10/25 08:59 Last Admin: 02/10/25 09:27 Dose: 30 gm Lidocaine HCl (Lidocaine Viscous 2% 15 Ml Udc) 15 ml MT QID [facility] Stop: 03/10/25 12:59 Last Admin: 02/10/25 09:27 Dose: 15 ml Magnesium Chloride (Magnesium Chloride W/Calcium 64mg Delayed Rel Tab) 64 mg PO DAILY [facility] Stop: 03/10/25 08:59 Last Admin: 02/10/25 09:28 Dose: 64 mg Midodrine (Midodrine Hcl 10 Mg Tab) 15 mg PO TID@0700,1200,1700 [facility] Stop: 03/12/25 06:59 Last Admin: 02/10/25 06:06 Dose: 15 mg Miscellaneous (Carbohydrates For Hypoglycemia ) 15 - 30 gm PO UD PRN PRN Reason: Hypoglycemia Protocol Stop: 03/10/25 05:08 Multivitamins (Multivitamin Tab) 1 tab PO DAILY [facility] Stop: 03/10/25 08:59 Last Admin: 02/10/25 09:28 Dose: 1 tab Nitroglycerin (Nitroglycerin Sl 0.4 Mg/Tab Tab) 0.4 mg SL Q5M PRN PRN Reason: Chest Pain Stop: 03/10/25 03:54 Pantoprazole Sodium (Pantoprazole 40 Mg Tab) 40 mg PO BID MOODY Stop: 03/10/25 08:59 Last Admin: 02/10/25 09:28 Dose: 40 mg Rifaximin (Rifaximin 550 Mg Tablet) 550 mg PO BID [facility] Stop: 03/10/25 08:59 Last Admin: 02/10/25 09:28 Dose: 550 mg Sodium Chloride (Sodium Chloride 1 Gm Tablet) 1 gm PO DAILY [facility] Stop: 03/10/25 08:59 Last Admin: 02/10/25 09:28 Dose: 1 gm Tamsulosin HCl (Tamsulosin Hcl 0.4 Mg Cap) 0.4 mg PO DAILY [facility] Stop: 03/10/25 08:59 Last Admin: 02/10/25 09:28 Dose: 0.4 mg Tramadol HCl (Tramadol Hcl 50 Mg Tablet) 50 mg PO Q6H PRN PRN Reason: Mod-Sev Pain (Scale 4-10) Stop: 03/10/25 03:54 Vitamin E (Tocopheryl, Dl-Alpha 400 Units 180 Mg Cap) 180 mg PO DAILY [place]ODY Stop: 03/10/25 08:59 Last Admin: 02/10/25 09:27 Dose: 180 mg (3) Lumbar compression fracture Encounter type: initial encounter Lumbar vertebra fracture level: unspecified lumbar vertebra Qualified Code(s): S32.000A - Wedge compression fracture of unspecified lumbar vertebra, initial encounter for closed fracture (10) Diabetes mellitus, type 2 Diabetes mellitus longterm insulin use: 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
[2025-02-10] MEDS: traMADol HCL 50 MG TABLET PO PRN (12:30)
--- NOTE | 2025-02-11 11:30 | Hospitalist Progress Note ---
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 Patient was admitted in first week of December with shortness of breath and acute blood loss anemia with hemoglobin 6.8 and received 1 unit of PRBC. During the admission he was status post EGD which showed portal hypertensive gastropathy and portal duodenopathy and did fine and was discharged home. Patient was again admitted on 01/13/2025 as patient was found to be lethargic when undergoing routine paracentesis and found to have large left pleural effusion and also recurrent blood loss anemia and hepatic encephalopathy and also found to left rib fracture from falls. Patient was status post chest tube placement on 01/13/2025 and status post paracentesis with 7 L of fluid removed and patient was transferred to [place] for TIPS procedure on 01/14/2025. Patient was also treated for possible SBP for 5 days with Rocephin and was started on ciprofloxacin 5 mg daily for SBP prophylaxis. Patient is status post TIPS procedure on 01/27/2025. His midodrine was increased to15 mg 3 times daily. He was placed on torsemide 10 mg daily and spironolactone 50 mg daily. Patient was discharged on 01/29/2025 from [place]. Patient lives at home with his mother and brother. Patient says he was doing okay after TIPS procedure. Currently not required paracentesis after TIPS procedure. Today he rolled and slipped from the bed and fell down around 2 PM. He was very weak on arms and legs and could not get up. He laid on the floor until his brother came at 6:30 PM. And he was able to get up but he was very weak to get into the couch and was brought in here. Denies any fevers. Denies chest pain. Denies shortness of breath. Appetite is okay. Denies headache. No cough. No runny nose. No nausea. No abdominal pain. States he is moving bowels only once daily currently. Micturating okay. Generalized weakness Fall from bed while turning around without any loss of consciousness Acute compression fracture of L1 and L2 Denies any pain at rest Will get orthospine consult- appreciate orthospine input recommendation was not to lift more than 10 pounds and continue with physical therapy PT OT has been ordered Remains stable but complains of profound weakness Remains medically stable and awaiting physical therapy to determine disposition Oral ulceration Looks like Aphthous Was given lidocaine viscus and things are improving Advised to switch and spit out to avoid nausea Denies any oral pain BERT Creatinine 1.5 Gentle fluids Hold diuretics with potassium supplements for now Kidney function has been normalized with creatinine of 1.17 as of 02/10/2024 Has not been getting any more intravenous fluid and diuretics will be restarted on discharge Kidney function remains stable with BUN/creatinine at 11/11.17 Questionable pneumonia on chest x-ray Patient has no cough or shortness of breath and afebrile Will follow CT chest -still pending Doubt any infection in the chest or pneumonia without any evidence of any symptoms and we will discontinue CT order Gonzales liver cirrhosis On lactulose and Xifaxan Total bili 3.6 same as previous labs Holding torsemide and spironolactone and potassium supplements for now Continue midodrine 15 mg p.o. 3 times daily Getting gentle fluids Patient is getting evaluated for liver transplant Monitor for volume overload-no signs or symptoms of fluid overload LFTs remains unremarkable Ascites From above Used to get frequent paracentesis Recently had TIPS procedure Holding diuretics for BERT Getting gentle fluids-no more IV fluid Does not have any abdominal distention or clinical ascites Hyponatremia On sodium tablets Sodium level has been [address] thrombocytopenia Sodium remains at 130 Moderate aortic stenosis Pulmonary hypertension Follow-up with cardiology History of hepatocellular carcinoma/liver lesions Patient received embolization of the right lower lobe lesion in 07/2023 Repeat MRI in 01/2024 showed treatment cavity enhancement patient subsequently treated with TACE MRI on 11/14/2024 showed abnormalities in hepatic segment 7 and currently as per patient getting SBRT Will have outpatient appointment with the RT therapy service Diabetes Continue home Lantus Sliding scale Close monitor Anemia Hemoglobin 8.9 hemoglobin remained stable at 8.3 and platelet 55 Thrombocytopenia From liver cirrhosis Platelets 53 Will monitor History of left hepatic hydrothorax Recent needed chest tube placement History of gout Allopurinol BPH On Flomax Monitor for urinary retention Hyperlipidemia On Lipitor DVT prophylaxis SCDs Disposition Med/telemetry Awaiting PT and OT evaluation and may need placement (2) Fracture of left proximal fibula: (3) Lumbar compression fracture: (4) BERT (acute kidney injury): (5) Recurrent falls while walking: (6) Hyponatremia: (7) Ascites: (8) Cirrhosis: (9) Thrombocytopenia: (10) Diabetes mellitus, type 2: Admission and Anticipated Discharge Date Admission Date: February 08, 2025 Subjective 02/09/2025 The patient was seen and examined medical telemetry unit He has been feeling much better and soreness in the mouth is resolved Has weakness and tiredness but denies any significant pain in the back Will get PT OT evaluation also for placement evaluation prior to discharge 02/10/2025 The patient was seen and examined in the medical telemetry unit He complains of nausea following taking of lidocaine viscous He denies any other significant symptoms except weakness Awaiting PT and OT evaluation 02/11/2025 The patient was seen and examined in medical telemetry unit He has been much better today and remains weak and tired Denies any significant symptoms and awaiting physical therapy evaluation Review of Systems Review of Systems: All systems reviewed and are unremarkable except as noted below Physical Exam Physical Exam: Lying in bed without any acute distress Constitutional: well developed, well nourished and + ill appearing Eyes: PERRL, conjunctivae normal, anicteric sclerae ENMT: external ear and nose normal, oropharynx normal Neck: trachea midline, no thyromegaly Respiratory: no respiratory distress Auscultation: lungs clear to auscultation bilaterally Cardiovascular: Rate/Rhythm: regular rate and regular rhythm; not tachycardic Heart Sounds: normal S1, normal S2 and + murmur Extremities: + edema (Trace edema bilaterally) Gastrointestinal (Abdomen): Inspection/Auscultation: normal bowel sounds; abdomen not distended Percussion/Palpation: abdomen soft; abdomen nontender Musculoskeletal: No acute arthritis involving any of the joint Neurologic: normal touch/pain/proprioception and moves all extremities; no focal motor deficits and not confused Lymphatic: no cervical or axillary lymphadenopathy Results & Data Results & Data Vital Signs (Past 12 Hours) Vital Signs Temp Pulse Pulse Resp BP Pulse Ox O2 Del Method 02/11/25 11:24 36.7 C 91 H 16 100/63 97 Room Air 02/11/25 08:09 37.1 C 86 18 111/64 95 Room Air 02/11/25 07:35 Room Air 02/11/25 07:00 89 02/10/25 23:46 36.8 C 86 18 100/62 97 Room Air Medications Administered Current Inpatient Medications Allopurinol (Allopurinol 300 Mg Tab) 300 mg PO DAILY [facility] Stop: 03/10/25 08:59 Last Admin: 02/11/25 07:34 Dose: 300 mg Ascorbic Acid (Ascorbic Acid 500 Mg Tab) 1,000 mg PO DAILY [facility] Stop: 03/10/25 08:59 Last Admin: 02/11/25 07:35 Dose: 1,000 mg Atorvastatin Calcium (Atorvastatin 20 Mg Tab) 20 mg PO DAILY [facility] Stop: 03/10/25 08:59 Last Admin: 02/11/25 07:35 Dose: 20 mg Ciprofloxacin (Ciprofloxacin 500 Mg Tab) 500 mg PO DAILY [facility]; Protocol Stop: 03/10/25 08:59 Last Admin: 02/11/25 07:34 Dose: 500 mg Dextrose (Dextrose 50% 50 Ml Syringe) 25 - 50 ml IV UD PRN; Protocol PRN Reason: Hypoglycemia Protocol Stop: 03/10/25 05:08 Docusate Sodium (Docusate Sodium 100 Mg Cap) 100 mg PO BID [facility] Stop: 03/10/25 08:59 Last Admin: 02/11/25 07:33 Dose: Not Given Glucagon (Glucagon For Inj 1 Mg Vial) 1 mg SQ UD PRN; Protocol PRN Reason: Hypoglycemia Protocol Stop: 03/10/25 05:08 Glucose (Glucose 40% Gel 15 Gm Tube) 15 - 30 gm PO UD PRN; Protocol PRN Reason: Hypoglycemia Protocol Stop: 03/10/25 05:08 Glucose (Glucose 10 Tab/Tube) 4 - 8 tab PO UD PRN; Protocol PRN Reason: Hypoglycemia Protocol Stop: 03/10/25 05:08 Insulin Aspart (Insulin Aspart Per Unit Charge) 0 units SC ACHS [facility] Stop: 03/10/25 07:29 Last Admin: 02/11/25 08:52 Dose: Not Given Insulin Glargine (Lantus Per Unit Charge) 10 units SQ DAILY [facility] Stop: 03/10/25 08:59 Last Admin: 02/11/25 09:01 Dose: 10 units Lactobacillus Acidophilus (Advanced Probiotic 625 Mg Capsule) 1,250 mg PO BID [facility] Stop: 03/10/25 08:59 Last Admin: 02/11/25 07:34 Dose: 1,250 mg Lactulose (Lactulose Syrup 30 Gm/45 Ml Udp) 30 gm PO TID [facility] Stop: 03/10/25 08:59 Last Admin: 02/11/25 07:37 Dose: 30 gm Lidocaine HCl (Lidocaine Viscous 2% 15 Ml Udc) 15 ml MT QID [facility] Stop: 03/10/25 12:59 Last Admin: 02/11/25 07:33 Dose: Not Given Magnesium Chloride (Magnesium Chloride W/Calcium 64mg Delayed Rel Tab) 64 mg PO DAILY [facility] Stop: 03/10/25 08:59 Last Admin: 02/11/25 07:34 Dose: 64 mg Midodrine (Midodrine Hcl 10 Mg Tab) 15 mg PO TID@0700,1200,1700 [facility] Stop: 03/12/25 06:59 Last Admin: 02/11/25 11:04 Dose: 15 mg Miscellaneous (Carbohydrates For Hypoglycemia ) 15 - 30 gm PO UD PRN PRN Reason: Hypoglycemia Protocol Stop: 03/10/25 05:08 Multivitamins (Multivitamin Tab) 1 tab PO DAILY [facility] Stop: 03/10/25 08:59 Last Admin: 02/11/25 07:34 Dose: 1 tab Nitroglycerin (Nitroglycerin Sl 0.4 Mg/Tab Tab) 0.4 mg SL Q5M PRN PRN Reason: Chest Pain Stop: 03/10/25 03:54 Pantoprazole Sodium (Pantoprazole 40 Mg Tab) 40 mg PO BID [facility] Stop: 03/10/25 08:59 Last Admin: 02/11/25 07:35 Dose: 40 mg Rifaximin (Rifaximin 550 Mg Tablet) 550 mg PO BID [facility] Stop: 03/10/25 08:59 Last Admin: 02/11/25 07:34 Dose: 550 mg Sodium Chloride (Sodium Chloride 1 Gm Tablet) 1 gm PO DAILY [facility] Stop: 03/10/25 08:59 Last Admin: 02/11/25 07:35 Dose: 1 gm Tamsulosin HCl (Tamsulosin Hcl 0.4 Mg Cap) 0.4 mg PO DAILY [facility] Stop: 03/10/25 08:59 Last Admin: 02/11/25 07:35 Dose: 0.4 mg Tramadol HCl (Tramadol Hcl 50 Mg Tablet) 50 mg PO Q6H PRN PRN Reason: Mod-Sev Pain (Scale 4-10) Stop: 03/10/25 03:54 Last Admin: 02/10/25 12:30 Dose: 50 mg Vitamin E (Tocopheryl, Dl-Alpha 400 Units 180 Mg Cap) 180 mg PO DAILY [facility] Stop: 03/10/25 08:59 Last Admin: 02/11/25 07:34 Dose: 180 mg (3) Lumbar compression fracture Encounter type: initial encounter Lumbar vertebra fracture level: unspecified lumbar vertebra Qualified Code(s): S32.000A - Wedge compression fracture of unspecified lumbar vertebra, initial encounter for closed fracture (10) Diabetes mellitus, type 2 Diabetes mellitus intermodal dispatcher insulin use: with intermodal dispatcher use Diabetes mellitus complication status: with other specified complication Qualified Code(s): E11.69 - Type 2 diabetes mellitus with other specified complication; Z79.4 - [facility] (current) use of insulin
[2025-02-12 09:20] LABS: Basophils # (auto) 0.11 K/uL (0.00-0.20); Basophils % (auto) 2.3 %; Eosinophils # (auto) 0.22 K/uL (0.00-0.50); Eosinophils % (auto) 4.7 %; Hematocrit (blood only) 24.5 % (42.0-52.0); Hemoglobin 8.4 g/dl (14.0-18.0); Immature Granulocytes # (auto) 0.06 K/uL (0.01-0.20); Immature Granulocytes % (auto) 1.3 %; Lymphocytes # (auto) 0.43 K/uL (1.20-3.40); Lymphocytes % (auto) 9.2 %; Mean Corpuscular Hemoglobin 32.3 pg (25.0-34.0); Mean Corpuscular Hgb Conc 34.3 g/dL (32.0-36.0); Mean Corpuscular Volume 94.2 fL (80.0-100.0); Mean Platelet Volume 10.5 fL (9.4-12.4); Monocytes % (auto) 21.3 %; Neutrophils # (auto) 2.87 K/uL (1.40-6.50); Neutrophils % (auto) 61.2 %; Platelet Count 50 K/uL (130-400); RDW Coefficient of Variation 22.6 % (11.5-14.5); RDW Standard Deviation 75.5 fL (36.4-46.3); White Blood Count 4.69 K/ul (4.8-10.8)
[2025-02-12 09:41] LABS: Albumin Level 1.9 gm/dl (3.4-5.0); Bilirubin,Total 4.2 mg/dl (0.2-1.0); Calcium 7.6 mg/dl (8.6-10.3); Potassium 3.8 mmol/L (3.5-5.1)
[2025-02-12 09:47] LABS: Albumin Globulin Ratio 0.7 (0.9-2); BUN Creatinine Ratio 13.5 (10-20); Creatinine Clr Calc Pharmacy 106.4 ml/min; Globulin 2.9 gm/dl (2.5-4.0); Total Protein 4.8 gm/dl (6.0-8.3)
[2025-02-12 10:02] LABS: Anisocytosis Present; Echinocytes 1+; Polychromasia 1+
--- NOTE | 2025-02-12 16:47 | Hospitalist Progress Note ---
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 Patient was admitted in first week of December with shortness of breath and acute blood loss anemia with hemoglobin 6.8 and received 1 unit of PRBC. During the admission he was status post EGD which showed portal hypertensive gastropathy and portal duodenopathy and did fine and was discharged home. Patient was again admitted on 01/13/2025 as patient was found to be lethargic when undergoing routine paracentesis and found to have large left pleural effusion and also recurrent blood loss anemia and hepatic encephalopathy and also found to left rib fracture from falls. Patient was status post chest tube placement on 01/13/2025 and status post paracentesis with 7 L of fluid removed and patient was transferred to [place] for TIPS procedure on 01/14/2025. Patient was also treated for possible SBP for 5 days with Rocephin and was started on ciprofloxacin 5 mg daily for SBP prophylaxis. Patient is status post TIPS procedure on 01/27/2025. His midodrine was increased to15 mg 3 times daily. He was placed on torsemide 10 mg daily and spironolactone 50 mg daily. Patient was discharged on 01/29/2025 from [place]. Patient lives at home with his mother and brother. Patient says he was doing okay after TIPS procedure. Currently not required paracentesis after TIPS procedure. Today he rolled and slipped from the bed and fell down around 2 PM. He was very weak on arms and legs and could not get up. He laid on the floor until his brother came at 6:30 PM. And he was able to get up but he was very weak to get into the couch and was brought in here. Denies any fevers. Denies chest pain. Denies shortness of breath. Appetite is okay. Denies headache. No cough. No runny nose. No nausea. No abdominal pain. States he is moving bowels only once daily currently. Micturating okay. Acute compression fracture of L1 and L2 Fall Generalized weakness Fell from bed while turning around without any loss of consciousness --Lumbar CT:Acute compression fractures of the L1 and L2 vertebral bodies without posterior retropulsion. Otherwise no change. The patient orthopedic spine input Conservative management per Ortho Continue brace with activity Continue PT OT, fall precautions No lifting over 5 to 10 pounds Needs follow-up with orthopedics in 2 weeks on discharge Fracture of left proximal fibula--Subacute Suspected Maisonneuve injury Likely secondary to prior fall -Imaging:There is a subacute, unhealed, anatomically aligned fracture of the left fibular neck with developing callus. --Appreciate orthopedics input. Do not recommend any surgical intervention currently. No real restrictions for left lower extremity per Ortho Oral ulceration Looks like Aphthous Was given lidocaine viscus and things are improving Advised to switch and spit out to avoid nausea Denies any oral pain Acute Kidney Injury Cr: 1.5>>0.89 Received gentle IV fluids Monitor renal function Avoid nephrotoxic agents as able Questionable pneumonia on chest x-ray Acute to subacute left rib fractures--POA --Chest CT:Increased size of large left pleural effusion with complete collapse of the left lung. Nondisplaced acute to recent subacute lower left rib fractures. Otherwise as described. -- Continue incentive spirometry --No indication for antibiotics currently Gonzales liver cirrhosis On lactulose and Xifaxan S/P TIPS Total bili 3.6 same as previous labs Continue midodrine 15 mg p.o. 3 times daily Patient is getting evaluated for liver transplant Monitor for volume overload Ascites secondary to above Recently had TIPS procedure Resume home diuretics Chronic thrombocytopenia No acute bleeding issues Monitor platelet count Hyponatremia Sodium stable at 130 Continue sodium tablets Monitor Moderate aortic stenosis Pulmonary hypertension Follow-up with cardiology History of hepatocellular carcinoma/liver lesions Patient received embolization of the right lower lobe lesion in 07/2023 Repeat MRI in 01/2024 showed treatment cavity enhancement patient subsequently treated with TACE MRI on 11/14/2024 showed abnormalities in hepatic segment 7 and currently as per patient getting SBRT Will have outpatient appointment with the RT therapy service DM II Continue home Lantus Sliding scale monitor BGs Anemia of chronic disease Hemoglobin 8.9 monitor History of left hepatic hydrothorax Recent needed chest tube placement History of gout continue Allopurinol BPH On Flomax Monitor for urinary retention Hyperlipidemia On Lipitor DVT prophylaxis SCDs Re: Significant thrombocytopenia CODE STATUS Full code Disposition Acute rehab when accepted (2) Fracture of left proximal fibula: (3) Lumbar compression fracture: (4) BERT (acute kidney injury): (5) Recurrent falls while walking: (6) Hyponatremia: (7) Ascites: (8) Cirrhosis: (9) Thrombocytopenia: (10) Diabetes mellitus, type 2: Admission and Anticipated Discharge Date Admission Date: February 08, 2025 Subjective Patient is seen and examined at bedside States having lower back pain which sometimes radiates to hip No other complaints today Denies any chest pain, dyspnea, nausea, vomiting, abdominal pain Review of Systems Review of Systems: All systems reviewed & are unremarkable except as noted in Subjective Physical Exam Physical Exam: Physical Exam: Vitals signs as noted above General Appearance:Moderately built and nourished, chronically ill appearing, no distress Head: normocephalic, Atraumatic Eyes: normal inspection, EOMI Neck: supple, Trachea midline Respiratory/Chest: Normal breath sounds, CTA, No accessory muscle use Cardiovascular: S1, S2, +murmur Abdomen/GI:Soft, distended, mild tender, Bowel sounds present,+colostomy bag placed over umbilical area wound, excoriation Back+Brace Extremities/Musculoskeletal:normal inspection, no edema Neurologic/Psych:AAOX3, grossly no focal neurological deficits Skin: normal color, warm, + jaundice Results & Data Results & Data Vital Signs (Past 12 Hours) Vital Signs Temp Pulse Pulse Resp BP BP Pulse Ox 02/12/25 14:51 36.6 C 95 H 18 92/49 L 95 02/12/25 14:00 99 H 02/12/25 11:38 36.7 C 90 16 100/63 98 02/12/25 07:39 36.9 C 88 16 90/52 L 97 02/12/25 07:20 02/12/25 07:00 90 O2 Del Method 02/12/25 14:51 Room Air 02/12/25 14:00 02/12/25 11:38 Room Air 02/12/25 07:39 Room Air 02/12/25 07:20 Room Air 02/12/25 07:00 Laboratory Results Short CBC 02/12/25 Range/Units 08:42 WBC 4.69 L (4.8-10.8) K/ul Hgb 8.4 L (14.0-18.0) g/dl Hct 24.5 L (42.0-52.0) % Plt Count 50 L (130-400) K/uL BMP 02/12/25 08:42 Sodium 130 L Potassium 3.8 Chloride 104 Carbon Dioxide 23 BUN 12 Creatinine 0.89 Glucose 86 Calcium 7.6 L Liver Function 02/12/25 Range/Units 08:42 Total Bilirubin 4.2 H (0.2-1.0) mg/dl AST 94 H (13-39) U/L ALT 31 (7-52) U/L Alkaline Phosphatase 201 H (34-104) U/L Albumin 1.9 L (3.4-5.0) gm/dl (3) Lumbar compression fracture Encounter type: initial encounter Lumbar vertebra fracture level: unspecified lumbar vertebra Qualified Code(s): S32.000A - Wedge compression fracture of unspecified lumbar vertebra, initial encounter for closed fracture (10) Diabetes mellitus, type 2 Diabetes mellitus [facility] insulin use: with termite exterminator helper use Diabetes mellitus complication status: with other specified complication Qualified Code(s): E11.69 - Type 2 diabetes mellitus with other specified complication; Z79.4 - [facility] (current) use of insulin
--- NOTE | 2025-02-13 16:07 | Hospitalist Progress Note ---
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 Patient was admitted in first week of December with shortness of breath and acute blood loss anemia with hemoglobin 6.8 and received 1 unit of PRBC. During the admission he was status post EGD which showed portal hypertensive gastropathy and portal duodenopathy and did fine and was discharged home. Patient was again admitted on 01/13/2025 as patient was found to be lethargic when undergoing routine paracentesis and found to have large left pleural effusion and also recurrent blood loss anemia and hepatic encephalopathy and also found to left rib fracture from falls. Patient was status post chest tube placement on 01/13/2025 and status post paracentesis with 7 L of fluid removed and patient was transferred to [facility] for TIPS procedure on 01/14/2025. Patient was also treated for possible SBP for 5 days with Rocephin and was started on ciprofloxacin 5 mg daily for SBP prophylaxis. Patient is status post TIPS procedure on 01/27/2025. His midodrine was increased to15 mg 3 times daily. He was placed on torsemide 10 mg daily and spironolactone 50 mg daily. Patient was discharged on 01/29/2025 from [facility]. Patient lives at home with his mother and brother. Patient says he was doing okay after TIPS procedure. Currently not required paracentesis after TIPS procedure. Today he rolled and slipped from the bed and fell down around 2 PM. He was very weak on arms and legs and could not get up. He laid on the floor until his brother came at 6:30 PM. And he was able to get up but he was very weak to get into the couch and was brought in here. Denies any fevers. Denies chest pain. Denies shortness of breath. Appetite is okay. Denies headache. No cough. No runny nose. No nausea. No abdominal pain. States he is moving bowels only once daily currently. Micturating okay. Acute compression fracture of L1 and L2 Fall Generalized weakness Fell from bed while turning around without any loss of consciousness --Lumbar CT:Acute compression fractures of the L1 and L2 vertebral bodies without posterior retropulsion. Otherwise no change. The patient orthopedic spine input Conservative management per Ortho Continue brace with activity Continue PT OT, fall precautions No lifting over 5 to 10 pounds Needs follow-up with orthopedics in 2 weeks on discharge Waiting for rehab placement-likely discharge tomorrow - Fracture of left proximal fibula--Subacute Suspected Maisonneuve injury Likely secondary to prior fall -Imaging:There is a subacute, unhealed, anatomically aligned fracture of the left fibular neck with developing callus. --Appreciate orthopedics input. Do not recommend any surgical intervention currently. No real restrictions for left lower extremity per Ortho Pain is controlled Oral ulceration Looks like Aphthous Was given lidocaine viscus and things are improving Advised to switch and spit out to avoid nausea Denies any oral pain Acute Kidney Injury Cr: 1.5>>0.89 Received gentle IV fluids Monitor renal function Avoid nephrotoxic agents as able Questionable pneumonia on chest x-ray Acute to subacute left rib fractures--POA --Chest CT:Increased size of large left pleural effusion with complete collapse of the left lung. Nondisplaced acute to recent subacute lower left rib fractures. Otherwise as described. -- Continue incentive spirometry --No indication for antibiotics currently Gonzales liver cirrhosis On lactulose and Xifaxan S/P TIPS Total bili 3.6 same as previous labs Continue midodrine 15 mg p.o. 3 times daily Patient is getting evaluated for liver transplant Monitor for volume overload Ascites secondary to above Recently had TIPS procedure Resume home diuretics Chronic thrombocytopenia No acute bleeding issues Monitor platelet count Hyponatremia Sodium stable at 130 Continue sodium tablets Monitor Will recheck BMP tomorrow Moderate aortic stenosis Pulmonary hypertension Follow-up with cardiology History of hepatocellular carcinoma/liver lesions Patient received embolization of the right lower lobe lesion in 07/2023 Repeat MRI in 01/2024 showed treatment cavity enhancement patient subsequently treated with TACE MRI on 11/14/2024 showed abnormalities in hepatic segment 7 and currently as per patient getting SBRT Will have outpatient appointment with the RT therapy service DM II Continue home Lantus Sliding scale monitor BGs Anemia of chronic disease Hemoglobin 8.9 monitor History of left hepatic hydrothorax Recent needed chest tube placement History of gout continue Allopurinol BPH On Flomax Monitor for urinary retention Hyperlipidemia On Lipitor DVT prophylaxis SCDs Re: Significant thrombocytopenia CODE STATUS Full code Disposition Rehab likely tomorrow (2) Fracture of left proximal fibula: (3) Lumbar compression fracture: (4) BERT (acute kidney injury): (5) Recurrent falls while walking: (6) Hyponatremia: (7) Ascites: (8) Cirrhosis: (9) Thrombocytopenia: (10) Diabetes mellitus, type 2: Admission and Anticipated Discharge Date Admission Date: February 08, 2025 Subjective Patient is seen and examined at bedside Reports lower back pain after PT this morning No other complaints today Denies any chest pain, dyspnea, nausea, vomiting, abdominal pain Chronic diarrhea due to lactulose Review of Systems Review of Systems: All systems reviewed & are unremarkable except as noted in Subjective Physical Exam Physical Exam: Physical Exam: Vitals signs as noted above General Appearance:Moderately built and nourished, chronically ill appearing, no distress Head: normocephalic, Atraumatic Eyes: normal inspection, EOMI Neck: supple, Trachea midline Respiratory/Chest: Normal breath sounds, CTA, No accessory muscle use Cardiovascular: S1, S2, +murmur Abdomen/GI:Soft, nondistended, nontender, bowel sounds present Back+Brace Extremities/Musculoskeletal:normal inspection, no edema Neurologic/Psych:AAOX3, grossly no focal neurological deficits Skin: normal color, warm, + jaundice Results & Data Results & Data Vital Signs (Past 12 Hours) Vital Signs Temp Pulse Pulse Resp BP BP Pulse Ox 02/13/25 15:39 36.7 C 93 H 18 97/52 L 98 02/13/25 11:48 36.7 C 89 19 92/53 L 98/64 L 97 02/13/25 09:07 90 02/13/25 07:50 02/13/25 07:43 36.8 C 92 H 17 101/63 97 O2 Del Method 02/13/25 15:39 Room Air 02/13/25 11:48 Room Air 02/13/25 09:07 02/13/25 07:50 Room Air 02/13/25 07:43 Room Air (3) Lumbar compression fracture Encounter type: initial encounter Lumbar vertebra fracture level: unspecified lumbar vertebra Qualified Code(s): S32.000A - Wedge compression fracture of unspecified lumbar vertebra, initial encounter for closed fracture (10) Diabetes mellitus, type 2 Diabetes mellitus fpc insulin use: with terminal superintendent use Diabetes mellitus complication status: with other specified complication Qualified Code(s): E11.69 - Type 2 diabetes mellitus with other specified complication; Z79.4 - retirement (current) use of insulin
[2025-02-14 08:56] LABS: Hematocrit (blood only) 24.7 % (42.0-52.0); Hemoglobin 8.4 g/dl (14.0-18.0); Mean Corpuscular Hemoglobin 32.2 pg (25.0-34.0); Mean Corpuscular Volume 94.6 fL (80.0-100.0); Mean Platelet Volume 10.3 fL (9.4-12.4); Platelet Count 49 K/uL (130-400); RDW Coefficient of Variation 23.6 % (11.5-14.5); RDW Standard Deviation 77.7 fL (36.4-46.3); Red Blood Count 2.61 M/uL (4.70-6.10); White Blood Count 5.41 K/ul (4.8-10.8)
[2025-02-14 09:19] LABS: BUN Creatinine Ratio 14.5 (10-20); Calcium 7.3 mg/dl (8.6-10.3); Creatinine Clr Calc Pharmacy 124.5 ml/min; Potassium 3.5 mmol/L (3.5-5.1)
--- NOTE | 2025-02-14 16:56 | Hospitalist Progress Note ---
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 Patient was admitted in first week of December with shortness of breath and acute blood loss anemia with hemoglobin 6.8 and received 1 unit of PRBC. During the admission he was status post EGD which showed portal hypertensive gastropathy and portal duodenopathy and did fine and was discharged home. Patient was again admitted on 01/13/2025 as patient was found to be lethargic when undergoing routine paracentesis and found to have large left pleural effusion and also recurrent blood loss anemia and hepatic encephalopathy and also found to left rib fracture from falls. Patient was status post chest tube placement on 01/13/2025 and status post paracentesis with 7 L of fluid removed and patient was transferred to [facility] for TIPS procedure on 01/14/2025. Patient was also treated for possible SBP for 5 days with Rocephin and was started on ciprofloxacin 5 mg daily for SBP prophylaxis. Patient is status post TIPS procedure on 01/27/2025. His midodrine was increased to15 mg 3 times daily. He was placed on torsemide 10 mg daily and spironolactone 50 mg daily. Patient was discharged on 01/29/2025 from [facility]. Patient lives at home with his mother and brother. Patient says he was doing okay after TIPS procedure. Currently not required paracentesis after TIPS procedure. Today he rolled and slipped from the bed and fell down around 2 PM. He was very weak on arms and legs and could not get up. He laid on the floor until his brother came at 6:30 PM. And he was able to get up but he was very weak to get into the couch and was brought in here. Denies any fevers. Denies chest pain. Denies shortness of breath. Appetite is okay. Denies headache. No cough. No runny nose. No nausea. No abdominal pain. States he is moving bowels only once daily currently. Micturating okay. Acute compression fracture of L1 and L2 Fall Generalized weakness Fell from bed while turning around without any loss of consciousness --Lumbar CT:Acute compression fractures of the L1 and L2 vertebral bodies without posterior retropulsion. Otherwise no change. The patient orthopedic spine input Conservative management per Ortho Continue brace with activity Continue PT OT, fall precautions No lifting over 5 to 10 pounds Needs follow-up with orthopedics in 2 weeks on discharge Waiting for rehab placement Back pain is controlled Case management to help with discharge planning Fracture of left proximal fibula--Subacute Suspected Maisonneuve injury Likely secondary to prior fall -Imaging:There is a subacute, unhealed, anatomically aligned fracture of the left fibular neck with developing callus. --Appreciate orthopedics input. Do not recommend any surgical intervention currently. No real restrictions for left lower extremity per Ortho Pain is controlled Oral ulceration Looks like Aphthous Was given lidocaine viscus and things are improving Advised to switch and spit out to avoid nausea Denies any oral pain Acute Kidney Injury Cr: 1.5>>0.89 Received gentle IV fluids Avoid nephrotoxic agents as able Renal function stable Questionable pneumonia on chest x-ray Acute to subacute left rib fractures--POA --Chest CT:Increased size of large left pleural effusion with complete collapse of the left lung. Nondisplaced acute to recent subacute lower left rib fractures. Otherwise as described. -- Continue incentive spirometry --No indication for antibiotics currently Gonzales liver cirrhosis On lactulose and Xifaxan S/P TIPS Total bili 3.6 same as previous labs Continue midodrine 15 mg p.o. 3 times daily Patient is getting evaluated for liver transplant Monitor for volume overload Ascites secondary to above Recently had TIPS procedure Resume home diuretics Chronic thrombocytopenia No acute bleeding issues Monitor platelet count Hyponatremia Sodium stable at 130 Continue sodium tablets Sodium levels slightly low from baseline Monitor Moderate aortic stenosis Pulmonary hypertension Follow-up with cardiology History of hepatocellular carcinoma/liver lesions Patient received embolization of the right lower lobe lesion in 07/2023 Repeat MRI in 01/2024 showed treatment cavity enhancement patient subsequently treated with TACE MRI on 11/14/2024 showed abnormalities in hepatic segment 7 and currently as per patient getting SBRT Will have outpatient appointment with the RT therapy service DM II Continue home Lantus Sliding scale monitor BGs Anemia of chronic disease Hemoglobin 8.9 monitor History of left hepatic hydrothorax Recent needed chest tube placement History of gout continue Allopurinol BPH On Flomax Monitor for urinary retention Hyperlipidemia On Lipitor DVT prophylaxis SCDs Re: Significant thrombocytopenia CODE STATUS Full code Disposition Rehab when accepted (2) Fracture of left proximal fibula: (3) Lumbar compression fracture: (4) BERT (acute kidney injury): (5) Recurrent falls while walking: (6) Hyponatremia: (7) Ascites: (8) Cirrhosis: (9) Thrombocytopenia: (10) Diabetes mellitus, type 2: Admission and Anticipated Discharge Date Admission Date: February 08, 2025 Subjective Patient is seen and examined at bedside No new complaints Feels tired after PT this morning Still states that he is able to ambulate more when compared to the time of admission Back pain is controlled Denies any chest pain, dyspnea, nausea, vomiting, abdominal pain Waiting for rehab placement Review of Systems Review of Systems: All systems reviewed & are unremarkable except as noted in Subjective Physical Exam Physical Exam: Physical Exam: Vitals signs as noted above General Appearance:Moderately built and nourished, chronically ill appearing, no distress Head: normocephalic, Atraumatic Eyes: normal inspection, EOMI Neck: supple, Trachea midline Respiratory/Chest: Normal breath sounds, CTA, No accessory muscle use Cardiovascular: S1, S2, +murmur Abdomen/GI:Soft, nondistended, nontender, bowel sounds present Back+Brace Extremities/Musculoskeletal:normal inspection, no edema Neurologic/Psych:AAOX3, grossly no focal neurological deficits Skin: normal color, warm, + jaundice Results & Data Results & Data Vital Signs (Past 12 Hours) Vital Signs Temp Pulse Resp BP Pulse Ox O2 Del Method 02/14/25 15:18 36.5 C 82 16 93/53 L 97 Room Air 02/14/25 08:13 36.6 C 80 16 108/63 97 Room Air 02/14/25 07:24 Room Air Laboratory Results Short CBC 02/14/25 Range/Units 07:59 WBC 5.41 (4.8-10.8) K/ul Hgb 8.4 L (14.0-18.0) g/dl Hct 24.7 L (42.0-52.0) % Plt Count 49 L (130-400) K/uL BMP 02/14/25 07:59 Sodium 127 L Potassium 3.5 Chloride 100 Carbon Dioxide 25 BUN 11 Creatinine 0.76 Glucose 119 H Calcium 7.3 L (3) Lumbar compression fracture Encounter type: initial encounter Lumbar vertebra fracture level: unspecified lumbar vertebra Qualified Code(s): S32.000A - Wedge compression fracture of unspecified lumbar vertebra, initial encounter for closed fracture (10) Diabetes mellitus, type 2 Diabetes mellitus chcf insulin use: with longitudinal float operator use Diabetes mellitus complication status: with other specified complication Qualified Code(s): E11.69 - Type 2 diabetes mellitus with other specified complication; Z79.4 - retirement (current) use of insulin
--- NOTE | 2025-02-15 15:41 | Hospitalist Progress Note ---
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 Patient was admitted in first week of December with shortness of breath and acute blood loss anemia with hemoglobin 6.8 and received 1 unit of PRBC. During the admission he was status post EGD which showed portal hypertensive gastropathy and portal duodenopathy and did fine and was discharged home. Patient was again admitted on 01/13/2025 as patient was found to be lethargic when undergoing routine paracentesis and found to have large left pleural effusion and also recurrent blood loss anemia and hepatic encephalopathy and also found to left rib fracture from falls. Patient was status post chest tube placement on 01/13/2025 and status post paracentesis with 7 L of fluid removed and patient was transferred to [place] for TIPS procedure on 01/14/2025. Patient was also treated for possible SBP for 5 days with Rocephin and was started on ciprofloxacin 5 mg daily for SBP prophylaxis. Patient is status post TIPS procedure on 01/27/2025. His midodrine was increased to15 mg 3 times daily. He was placed on torsemide 10 mg daily and spironolactone 50 mg daily. Patient was discharged on 01/29/2025 from [facility]. Patient lives at home with his mother and brother. Patient says he was doing okay after TIPS procedure. Currently not required paracentesis after TIPS procedure. Today he rolled and slipped from the bed and fell down around 2 PM. He was very weak on arms and legs and could not get up. He laid on the floor until his brother came at 6:30 PM. And he was able to get up but he was very weak to get into the couch and was brought in here. Denies any fevers. Denies chest pain. Denies shortness of breath. Appetite is okay. Denies headache. No cough. No runny nose. No nausea. No abdominal pain. States he is moving bowels only once daily currently. Micturating okay. Acute compression fracture of L1 and L2 Fall Generalized weakness Fell from bed while turning around without any loss of consciousness --Lumbar CT:Acute compression fractures of the L1 and L2 vertebral bodies without posterior retropulsion. Otherwise no change. The patient orthopedic spine input Conservative management per Ortho Continue brace with activity Continue PT OT, fall precautions No lifting over 5 to 10 pounds Needs follow-up with orthopedics in 2 weeks on discharge Case management to help with discharge planning No significant back pain today Waiting for rehab placement Fracture of left proximal fibula--Subacute Suspected Maisonneuve injury Likely secondary to prior fall -Imaging:There is a subacute, unhealed, anatomically aligned fracture of the left fibular neck with developing callus. --Appreciate orthopedics input. Do not recommend any surgical intervention currently. No real restrictions for left lower extremity per Ortho Pain is controlled Oral ulceration Looks like Aphthous Was given lidocaine viscus and things are improving Advised to switch and spit out to avoid nausea Denies any oral pain Acute Kidney Injury Cr: 1.5>>0.89>0.76 Received gentle IV fluids Avoid nephrotoxic agents as able Renal function stable Questionable pneumonia on chest x-ray Acute to subacute left rib fractures--POA --Chest CT:Increased size of large left pleural effusion with complete collapse of the left lung. Nondisplaced acute to recent subacute lower left rib fractures. Otherwise as described. -- Continue incentive spirometry --No indication for antibiotics currently Gonzales liver cirrhosis On lactulose and Xifaxan S/P TIPS Total bili 3.6 same as previous labs Continue midodrine 15 mg p.o. 3 times daily Patient is getting evaluated for liver transplant Monitor for volume overload Ascites secondary to above Recently had TIPS procedure Resume home diuretics Chronic thrombocytopenia No acute bleeding issues Monitor platelet count Will recheck CBC tomorrow Hyponatremia Sodium stable at 130 Continue sodium tablets Will recheck sodium levels tomorrow Moderate aortic stenosis Pulmonary hypertension Follow-up with cardiology History of hepatocellular carcinoma/liver lesions Patient received embolization of the right lower lobe lesion in 07/2023 Repeat MRI in 01/2024 showed treatment cavity enhancement patient subsequently treated with TACE MRI on 11/14/2024 showed abnormalities in hepatic segment 7 and currently as per patient getting SBRT Will have outpatient appointment with the RT therapy service DM II Continue home Lantus Sliding scale monitor BGs Anemia of chronic disease Hemoglobin 8.9 monitor History of left hepatic hydrothorax Recent needed chest tube placement History of gout continue Allopurinol BPH On Flomax Monitor for urinary retention Hyperlipidemia On Lipitor DVT prophylaxis SCDs Re: Significant thrombocytopenia CODE STATUS Full code Disposition Rehab when accepted (2) Fracture of left proximal fibula: (3) Lumbar compression fracture: (4) BERT (acute kidney injury): (5) Recurrent falls while walking: (6) Hyponatremia: (7) Ascites: (8) Cirrhosis: (9) Thrombocytopenia: (10) Diabetes mellitus, type 2: Admission and Anticipated Discharge Date Admission Date: February 08, 2025 Subjective Patient is seen and examined at bedside Reported feeling tired No significant Back pain today Denies any chest pain, dyspnea, nausea, vomiting, abdominal pain Waiting for rehab placement Review of Systems Review of Systems: All systems reviewed & are unremarkable except as noted in Subjective Physical Exam Physical Exam: Physical Exam: Vitals signs as noted above General Appearance:Moderately built and nourished, chronically ill appearing, no distress Head: normocephalic, Atraumatic Eyes: normal inspection, EOMI Neck: supple, Trachea midline Respiratory/Chest: Normal breath sounds, CTA, No accessory muscle use Cardiovascular: S1, S2, +murmur Abdomen/GI:Soft, nondistended, nontender, bowel sounds present Back+Brace Extremities/Musculoskeletal:normal inspection, no edema Neurologic/Psych:AAOX3, grossly no focal neurological deficits Skin: normal color, warm, + jaundice Results & Data Results & Data Vital Signs (Past 12 Hours) Vital Signs Temp Pulse Pulse Resp BP Pulse Ox O2 Del Method 02/15/25 15:00 102 H 02/15/25 12:23 Room Air 02/15/25 11:26 36.9 C 86 16 91/59 L 02/15/25 07:32 36.8 C 82 16 99/61 L 98 Room Air 02/15/25 07:00 87 (3) Lumbar compression fracture Encounter type: initial encounter Lumbar vertebra fracture level: unspecified lumbar vertebra Qualified Code(s): S32.000A - Wedge compression fracture of unspecified lumbar vertebra, initial encounter for closed fracture (10) Diabetes mellitus, type 2 Diabetes mellitus termite control technician insulin use: with termite control technician use Diabetes mellitus complication status: with other specified complication Qualified Code(s): E11.69 - Type 2 diabetes mellitus with other specified complication; Z79.4 - penitentiary (current) use of insulin
[2025-02-15] MEDS: PROMETHAZINE 6.25 MG/50.25 ML BAG IV PRN (23:16)
[2025-02-16] MEDS: HYDROmorphone INJ 0.5 MG/0.5 ML SYR IV ONE (02:55)
[2025-02-16] MEDS: traMADol HCL 50 MG TABLET PO PRN (03:31)
[2025-02-16 06:32] LABS: Hematocrit (blood only) 23.9 % (42.0-52.0); Hemoglobin 8.3 g/dl (14.0-18.0); Mean Corpuscular Hemoglobin 33.1 pg (25.0-34.0); Mean Corpuscular Hgb Conc 34.7 g/dL (32.0-36.0); Mean Corpuscular Volume 95.2 fL (80.0-100.0); Mean Platelet Volume 10.9 fL (9.4-12.4); Platelet Count 57 K/uL (130-400); RDW Coefficient of Variation 23.6 % (11.5-14.5); RDW Standard Deviation 79.8 fL (36.4-46.3); Red Blood Count 2.51 M/uL (4.70-6.10); White Blood Count 7.37 K/ul (4.8-10.8)
[2025-02-16 07:34] LABS: Calcium 7.2 mg/dl (8.6-10.3); Potassium 3.9 mmol/L (3.5-5.1)
[2025-02-16 07:40] LABS: BUN Creatinine Ratio 13.6 (10-20)
[2025-02-16] MEDS: SODIUM CHLORIDE 1 GM TABLET PO SCH (09:19)
--- NOTE | 2025-02-16 14:54 | Hospitalist Progress Note ---
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 Patient was admitted in first week of December with shortness of breath and acute blood loss anemia with hemoglobin 6.8 and received 1 unit of PRBC. During the admission he was status post EGD which showed portal hypertensive gastropathy and portal duodenopathy and did fine and was discharged home. Patient was again admitted on 01/13/2025 as patient was found to be lethargic when undergoing routine paracentesis and found to have large left pleural effusion and also recurrent blood loss anemia and hepatic encephalopathy and also found to left rib fracture from falls. Patient was status post chest tube placement on 01/13/2025 and status post paracentesis with 7 L of fluid removed and patient was transferred to [facility] for TIPS procedure on 01/14/2025. Patient was also treated for possible SBP for 5 days with Rocephin and was started on ciprofloxacin 5 mg daily for SBP prophylaxis. Patient is status post TIPS procedure on 01/27/2025. His midodrine was increased to15 mg 3 times daily. He was placed on torsemide 10 mg daily and spironolactone 50 mg daily. Patient was discharged on 01/29/2025 from [facility]. Patient lives at home with his mother and brother. Patient says he was doing okay after TIPS procedure. Currently not required paracentesis after TIPS procedure. Today he rolled and slipped from the bed and fell down around 2 PM. He was very weak on arms and legs and could not get up. He laid on the floor until his brother came at 6:30 PM. And he was able to get up but he was very weak to get into the couch and was brought in here. Denies any fevers. Denies chest pain. Denies shortness of breath. Appetite is okay. Denies headache. No cough. No runny nose. No nausea. No abdominal pain. States he is moving bowels only once daily currently. Micturating okay. Acute compression fracture of L1 and L2 Fall Generalized weakness Fell from bed while turning around without any loss of consciousness --Lumbar CT:Acute compression fractures of the L1 and L2 vertebral bodies without posterior retropulsion. Otherwise no change. The patient orthopedic spine input Conservative management per Ortho Continue brace with activity Continue PT OT, fall precautions No lifting over 5 to 10 pounds Needs follow-up with orthopedics in 2 weeks on discharge Case management to help with discharge planning No significant back pain today Waiting for rehab placement Reports nausea today. If continues to report nausea, will consider KUB Waiting for insurance Auth for rehab Fracture of left proximal fibula--Subacute Suspected Maisonneuve injury Likely secondary to prior fall -Imaging:There is a subacute, unhealed, anatomically aligned fracture of the left fibular neck with developing callus. --Appreciate orthopedics input. Do not recommend any surgical intervention currently. No real restrictions for left lower extremity per Ortho Pain is controlled Oral ulceration Looks like Aphthous Was given lidocaine viscus and things are improving Advised to switch and spit out to avoid nausea Denies any oral pain Acute Kidney Injury Cr: 1.5>>0.89>0.76 Received gentle IV fluids Avoid nephrotoxic agents as able Renal function stable Questionable pneumonia on chest x-ray Acute to subacute left rib fractures--POA --Chest CT:Increased size of large left pleural effusion with complete collapse of the left lung. Nondisplaced acute to recent subacute lower left rib fractures. Otherwise as described. -- Continue incentive spirometry --No indication for antibiotics currently Gonzales liver cirrhosis On lactulose and Xifaxan S/P TIPS Total bili 3.6 same as previous labs Continue midodrine 15 mg p.o. 3 times daily Patient is getting evaluated for liver transplant Monitor for volume overload Ascites secondary to above Recently had TIPS procedure Resume home diuretics Chronic thrombocytopenia No acute bleeding issues Monitor platelet count Hemoglobin, platelet count stable Hyponatremia Noted drop in sodium level today Increased salt tablets to twice a day Will recheck sodium levels tomorrow Low-sodium diet discontinued Moderate aortic stenosis Pulmonary hypertension Follow-up with cardiology History of hepatocellular carcinoma/liver lesions Patient received embolization of the right lower lobe lesion in 07/2023 Repeat MRI in 01/2024 showed treatment cavity enhancement patient subsequently treated with TACE MRI on 11/14/2024 showed abnormalities in hepatic segment 7 and currently as per patient getting SBRT Will have outpatient appointment with the RT therapy service DM II Continue home Lantus Sliding scale monitor BGs Anemia of chronic disease Hemoglobin 8.9 monitor History of left hepatic hydrothorax Recent needed chest tube placement History of gout continue Allopurinol BPH On Flomax Monitor for urinary retention Hyperlipidemia On Lipitor DVT prophylaxis SCDs Re: Significant thrombocytopenia CODE STATUS Full code Disposition Rehab when accepted (2) Fracture of left proximal fibula: (3) Lumbar compression fracture: (4) BERT (acute kidney injury): (5) Recurrent falls while walking: (6) Hyponatremia: (7) Ascites: (8) Cirrhosis: (9) Thrombocytopenia: (10) Diabetes mellitus, type 2: Admission and Anticipated Discharge Date Admission Date: February 08, 2025 Subjective Patient is seen and examined at bedside Reports having nausea today but denies any vomiting, abdominal pain, chest pain, dyspnea Back pain is well-controlled No other complaints Review of Systems Review of Systems: All systems reviewed & are unremarkable except as noted in Subjective Physical Exam Physical Exam: Physical Exam: Vitals signs as noted above General Appearance:Moderately built and nourished, chronically ill appearing, no distress Head: normocephalic, Atraumatic Eyes: normal inspection, EOMI Neck: supple, Trachea midline Respiratory/Chest: Normal breath sounds, CTA, No accessory muscle use Cardiovascular: S1, S2, +murmur Abdomen/GI:Soft, nondistended, nontender, bowel sounds present Back+Brace Extremities/Musculoskeletal:normal inspection, no edema Neurologic/Psych:AAOX3, grossly no focal neurological deficits Skin: normal color, warm, + jaundice Results & Data Results & Data Vital Signs (Past 12 Hours) Vital Signs Temp Pulse Pulse Resp BP Pulse Ox O2 Del Method 02/16/25 14:43 95 H 02/16/25 12:27 Room Air 02/16/25 12:08 36.7 C 93 H 16 102/64 97 Room Air 02/16/25 07:47 36.6 C 92 H 16 98/62 L 98 Room Air 02/16/25 07:37 94 H 02/16/25 03:19 36.7 C 93 H 18 102/61 97 Room Air Laboratory Results Short CBC 02/16/25 Range/Units 05:47 WBC 7.37 (4.8-10.8) K/ul Hgb 8.3 L (14.0-18.0) g/dl Hct 23.9 L (42.0-52.0) % Plt Count 57 L (130-400) K/uL BMP 02/16/25 05:47 Sodium 124 L Potassium 3.9 Chloride 99 Carbon Dioxide 25 BUN 11 Creatinine 0.81 Glucose 71 Calcium 7.2 L (3) Lumbar compression fracture Encounter type: initial encounter Lumbar vertebra fracture level: unspecified lumbar vertebra Qualified Code(s): S32.000A - Wedge compression fracture of unspecified lumbar vertebra, initial encounter for closed fracture (10) Diabetes mellitus, type 2 Diabetes mellitus senior care insulin use: with senior care use Diabetes mellitus complication status: with other specified complication Qualified Code(s): E11.69 - Type 2 diabetes mellitus with other specified complication; Z79.4 - USP (current) use of insulin
[2025-02-17 07:59] LABS: BUN Creatinine Ratio 14.7 (10-20); Calcium 7.3 mg/dl (8.6-10.3); Creatinine Clr Calc Pharmacy 127.7 ml/min; Potassium 3.7 mmol/L (3.5-5.1)
[2025-02-17] MEDS: SODIUM CHLORIDE 1 GM TABLET PO SCH ×2 (09:52→21:31)
--- NOTE | 2025-02-17 10:07 | Nephrology Consultation ---
Date of Consultation February 17, 2025 Assessment & Plan (1) Hyponatremia: Hyponatremia as expected In a patient with Cirrhosis. He was on diuretics before but not now. Lack of torsemide will cause some drop in na and will restart at 20 bid for now. But eventually lower the dose to 20 daily. Hold of Aldactone for now but will restart eventually. Will restart home dose of ailyn.l 40 bid. No urea. Continue Salt tab -lower the dose to 1 gm bid. was on 1 gm daily at home. with his Cirrhosis if we can keep Na close to 130 , it will be called success. BMP q12. (2) Lumbar compression fracture: Primary reason for admission (3) BERT (acute kidney injury): had Creat of 1..5 but since then normal currently. However we have to restart the diuretics. Actually use a slightly higher dose of torsemide 20 daily and also Aldactone for outpt. We need to monitor closely with this change Plan time spent 62 mins. reviewed multiple recent admissions H and P and Discharge summary History of Present Illness Reason for Consultation: Hyponatremia with Cirrhosis Attending Physician: Karsten Delgado MD History of Present Illness 59/M with Liver Cirrhsosis from GONZALES and Chronic hyponatremia, type 2 diabetes, chronic idiopathic gout, history of hepatic encephalopathy, hypertension, moderate aortic stenosis, diverticulosis of colon, BPH, thrombocytopenia came to hospitl because of fall and weakness. Found to have multiple vertebral frac tures. NO surgery but has back brace and is [facility]. Patient was also admitted in early December with shortness of breath and acute blood loss anemia with hemoglobin 6.8 and received 1 unit of PRBC. During that admission he was status post EGD which showed portal hypertensive gastropathy and was discharged home. Patient was again admitted on 01/13/2025 as patient was found to be lethargic when undergoing routine paracentesis and found to have large left pleural effusion and also recurrent blood loss anemia and hepatic encephalopathy and also found to have left rib fracture from falls. Patient was status post chest tube placement on 01/13/2025 and status post paracentesis with 7 L of fluid removed and patient was transferred to [facility] for TIPS procedure on 01/14/2025. Patient was also treated for possible SBP for 5 days with Rocephin and was started on ciprofloxacin 5 mg daily for SBP prophylaxis. Patient is status post TIPS procedure on 01/27/2025. His midodrine was increased to15 mg 3 times daily. He was placed on torsemide 10 mg daily and spironolactone 50 mg daily. Patient was discharged on 01/29/2025 from [facility]. Patient lives at home with his mother and brother. Patient says he was doing okay after TIPS procedure. Currently not required paracentesis after TIPS procedure. The day of admission he rolled and slipped from the bed and fell down around 2 PM. had slight BERT with creat of 1.5 and Diuretics were held and even now is off. but na started dropping slowly. was 131 and last few days dropping and now 123. Getting Slat tab and dose raised. ROS--otherwise 12 Systems reviewed and negative. Physical Exam Physical Exam: General Appearance:chronically ill appearing, no distress Neck: supple, Trachea midline Respiratory/Chest: Normal breath sounds, CTA, No accessory muscle use Cardiovascular: S1, S2, +murmur Abdomen/GI:Soft, nondistended, nontender Back+Brace Extremities/Musculoskeletal: no edema Neurologic/Psych:AAOX3, grossly no focal neurological deficits Skin: normal color, warm, + jaundice Allergies Allergy/AdvReac Type Severity Reaction Status Date / Time aspirin AdvReac Intermediate NOSE Verified 02/07/25 21:33 BLEEDS--IF TAKES REGULARLY salicylates AdvReac Intermediate NOSE BLEEDS Verified 02/07/25 21:33 Home Medications Medication Instructions Recorded Confirmed Type allopurinol 300 mg tablet 300 mg PO DAILY 12/29/24 02/07/25 History ascorbic acid (vitamin C) 1,000 mg 1 g PO DAILY 12/29/24 02/07/25 History tablet atorvastatin 20 mg tablet 20 mg PO DAILY 12/29/24 02/07/25 History insulin degludec 100 unit/mL (3 10 unit subcut DAILY 12/29/24 02/07/25 History mL) subcutaneous pen lactulose 10 gram/15 mL oral 45 ml PO TID 12/29/24 02/07/25 History solution magnesium chloride 64 mg 64 mg PO DAILY 12/29/24 02/07/25 History (magnesium chloride) tablet,delayed release (Mag-Delay) multivitamin 1 tab PO DAILY 12/29/24 02/07/25 History rifaximin 550 mg tablet (Xifaxan) 550 mg PO BID 12/29/24 02/07/25 History sodium chloride 1,000 mg soluble 1,000 mg PO DAILY 12/29/24 02/07/25 History tablet tamsulosin 0.4 mg capsule 0.4 mg PO DAILY 12/29/24 02/07/25 History pantoprazole 40 mg tablet,delayed 40 mg PO BID #60 tabs 12/31/24 02/07/25 Rx release Lactobacillus acidophilus 10 10,000 mmu cells PO BID 01/08/25 02/07/25 History billion cell capsule (Probiotic) docusate sodium 100 mg capsule 100 mg PO BID 01/08/25 02/07/25 History mupirocin 2 % topical ointment 1 applic topical TID PRN Skin 01/08/25 02/07/25 History Irritation ciprofloxacin HCl 500 mg tablet 500 mg PO DAILY 02/07/25 02/07/25 History midodrine 5 mg tablet 15 mg PO TID 02/07/25 02/07/25 History potassium chloride 20 mEq 40 meq PO BID 02/07/25 02/07/25 History tablet,extended release(part/cryst) spironolactone 50 mg tablet 50 mg PO DAILY 02/07/25 02/07/25 History torsemide 10 mg tablet 10 mg PO DAILY 02/07/25 02/07/25 History vitamin E (dl, acetate) 180 mg 180 mg PO DAILY 02/07/25 02/07/25 History (400 unit) capsule Patient History Medical History Pleural effusion BPH (benign prostatic hyperplasia) Ureterolithiasis Hepatocellular carcinoma s/p IR embolization Pulmonary hypertension Diabetes mellitus NAFLD (nonalcoholic fatty liver disease) Chronic hyponatremia Dizziness r/t the cirrhosis - using a cane at this time. "if i get up to fast". S/P abdominal paracentesis Fracture of rib of right side 2013 Anaplasmosis 2020 Acute hepatic encephalopathy Cardiac murmur HX Hypertension Right rib fracture hx ~. Surgical History History of esophagogastroduodenoscopy (EGD) History of colonoscopy Family History Mother History of colonoscopy Cancer Colon Brother Family history of diabetes mellitus Brother Family history of diabetes mellitus Grandmother (Paternal) Family history of diabetes mellitus Other No family history of adverse response to anesthesia Social History Smoking Status: Former smoker Tobacco Type: Cigarettes and Smokeless Tobacco (Dip or Chew) packs per day: 0.25; Cigarettes Per Day: 1/2 PPD; Smoking End Date: "22 years ago"; Second Hand Exposure: No; Do You Dip or Chew Tobacco: No; Hx Alcohol Use: Yes Hx Substance Use: No Preferred Language: Qatari Communication Ability: Effective Hearing Ability: Normal Agricultural Commodities Inspector Required: No Beliefs That Will Affect Care: None marital status: Single Current Living Situation: Family Current Living Situation Comment: lives with mom and brother Other Information That Helps Us Care for You: No Feels Safe at Home: Yes Safety Concerns: Feels Safe At This Time Assistive Devices: Walker Results & Data Vital Signs (Past 12 Hours) Vital Signs Temp Pulse Pulse Resp BP BP Pulse Ox 02/17/25 08:38 02/17/25 08:06 36.7 C 89 17 100/63 97 02/17/25 07:36 94 H 02/17/25 02:59 36.5 C 94 H 20 103/61 96 02/16/25 23:28 36.7 C 91 H 16 96/59 L 96 O2 Del Method 02/17/25 08:38 Room Air 02/17/25 08:06 Room Air 02/17/25 07:36 02/17/25 02:59 Room Air 02/16/25 23:28 Room Air Laboratory Results reviewed CBC, renal panel, coags, urine tests (2) Lumbar compression fracture Encounter type: initial encounter Lumbar vertebra fracture level: unspecified lumbar vertebra Qualified Code(s): S32.000A - Wedge compression fracture of unspecified lumbar vertebra, initial encounter for closed fracture
[2025-02-17] MEDS: TORSEMIDE 20 MG TAB PO SCH (11:09)
[2025-02-17] MEDS: POTASSIUM CHLORIDE 20 MEQ/15 ML UDC PO SCH (11:10)
--- NOTE | 2025-02-17 15:32 | Hospitalist Progress Note ---
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 Patient was admitted in first week of December with shortness of breath and acute blood loss anemia with hemoglobin 6.8 and received 1 unit of PRBC. During the admission he was status post EGD which showed portal hypertensive gastropathy and portal duodenopathy and did fine and was discharged home. Patient was again admitted on 01/13/2025 as patient was found to be lethargic when undergoing routine paracentesis and found to have large left pleural effusion and also recurrent blood loss anemia and hepatic encephalopathy and also found to left rib fracture from falls. Patient was status post chest tube placement on 01/13/2025 and status post paracentesis with 7 L of fluid removed and patient was transferred to [facility] for TIPS procedure on 01/14/2025. Patient was also treated for possible SBP for 5 days with Rocephin and was started on ciprofloxacin 5 mg daily for SBP prophylaxis. Patient is status post TIPS procedure on 01/27/2025. His midodrine was increased to15 mg 3 times daily. He was placed on torsemide 10 mg daily and spironolactone 50 mg daily. Patient was discharged on 01/29/2025 from [facility]. Patient lives at home with his mother and brother. Patient says he was doing okay after TIPS procedure. Currently not required paracentesis after TIPS procedure. Today he rolled and slipped from the bed and fell down around 2 PM. He was very weak on arms and legs and could not get up. He laid on the floor until his brother came at 6:30 PM. And he was able to get up but he was very weak to get into the couch and was brought in here. Denies any fevers. Denies chest pain. Denies shortness of breath. Appetite is okay. Denies headache. No cough. No runny nose. No nausea. No abdominal pain. States he is moving bowels only once daily currently. Micturating okay. Acute compression fracture of L1 and L2 Fall Generalized weakness Fell from bed while turning around without any loss of consciousness --Lumbar CT:Acute compression fractures of the L1 and L2 vertebral bodies without posterior retropulsion. Otherwise no change. The patient orthopedic spine input Conservative management per Ortho Continue brace with activity Continue PT OT, fall precautions No lifting over 5 to 10 pounds Needs follow-up with orthopedics in 2 weeks on discharge Plan to discharge to rehab facility when accepted Fracture of left proximal fibula--Subacute Suspected Maisonneuve injury Likely secondary to prior fall -Imaging:There is a subacute, unhealed, anatomically aligned fracture of the left fibular neck with developing callus. --Appreciate orthopedics input. Do not recommend any surgical intervention currently. No real restrictions for left lower extremity per Ortho Pain is controlled Acute on chronic hyponatremia Sodium levels dropped to 123 Intermittent nausea likely contributing in setting of liver disease Restart home torsemide On salt tablets at home, continue Monitor sodium levels Appreciate nephrology input Antiemetics as needed Will check KUB to rule out any obstruction Oral ulceration Looks like Aphthous Was given lidocaine viscus and things are improving Advised to switch and spit out to avoid nausea Denies any oral pain Acute Kidney Injury Cr: 1.5>>0.89>0.76 Received gentle IV fluids Avoid nephrotoxic agents as able Renal function stable Questionable pneumonia on chest x-ray Acute to subacute left rib fractures--POA --Chest CT:Increased size of large left pleural effusion with complete collapse of the left lung. Nondisplaced acute to recent subacute lower left rib fractures. Otherwise as described. -- Continue incentive spirometry --No indication for antibiotics currently Gonzales liver cirrhosis On lactulose and Xifaxan S/P TIPS Total bili 3.6 same as previous labs Continue midodrine 15 mg p.o. 3 times daily Patient is getting evaluated for liver transplant Monitor for volume overload Ascites secondary to above Recently had TIPS procedure Resumed home diuretics Chronic thrombocytopenia No acute bleeding issues Monitor platelet count Hemoglobin, platelet count stable Moderate aortic stenosis Pulmonary hypertension Follow-up with cardiology History of hepatocellular carcinoma/liver lesions Patient received embolization of the right lower lobe lesion in 07/2023 Repeat MRI in 01/2024 showed treatment cavity enhancement patient subsequently treated with TACE MRI on 11/14/2024 showed abnormalities in hepatic segment 7 and currently as per patient getting SBRT Will have outpatient appointment with the RT therapy service DM II Continue home Lantus Sliding scale monitor BGs Anemia of chronic disease Hemoglobin 8.9 monitor History of left hepatic hydrothorax Recent needed chest tube placement History of gout continue Allopurinol BPH On Flomax Monitor for urinary retention Hyperlipidemia On Lipitor DVT prophylaxis SCDs Re: Significant thrombocytopenia CODE STATUS Full code Disposition Rehab when accepted (2) Fracture of left proximal fibula: (3) Lumbar compression fracture: (4) BERT (acute kidney injury): (5) Recurrent falls while walking: (6) Hyponatremia: (7) Ascites: (8) Cirrhosis: (9) Thrombocytopenia: (10) Diabetes mellitus, type 2: Admission and Anticipated Discharge Date Admission Date: February 08, 2025 Subjective Patient is seen and examined at bedside Patient has been having intermittent nausea but no vomiting Sodium levels decreasing Discussed with nephrology today Patient denies any chest pain, dyspnea, abdominal pain, dizziness Review of Systems Review of Systems: All systems reviewed & are unremarkable except as noted in Subjective Physical Exam Physical Exam: Physical Exam: Vitals signs as noted above General Appearance:Moderately built and nourished, chronically ill appearing, no distress Head: normocephalic, Atraumatic Eyes: normal inspection, EOMI Neck: supple, Trachea midline Respiratory/Chest: Normal breath sounds, CTA, No accessory muscle use Cardiovascular: S1, S2, +murmur Abdomen/GI:Soft, nondistended, nontender, bowel sounds present Back+Brace Extremities/Musculoskeletal:normal inspection, no edema Neurologic/Psych:AAOX3, grossly no focal neurological deficits Skin: normal color, warm, + jaundice Results & Data Results & Data Vital Signs (Past 12 Hours) Vital Signs Temp Pulse Pulse Resp BP BP Pulse Ox 02/17/25 11:58 36.8 C 84 18 89/51 L 94 02/17/25 08:38 02/17/25 08:06 36.7 C 89 17 100/63 97 02/17/25 07:36 94 H O2 Del Method 02/17/25 11:58 Room Air 02/17/25 08:38 Room Air 02/17/25 08:06 Room Air 02/17/25 07:36 Laboratory Results BMP 02/17/25 07:15 Sodium 123 L Potassium 3.7 Chloride 98 Carbon Dioxide 24 BUN 11 Creatinine 0.75 Glucose 96 Calcium 7.3 L (3) Lumbar compression fracture Encounter type: initial encounter Lumbar vertebra fracture level: unspecified lumbar vertebra Qualified Code(s): S32.000A - Wedge compression fracture of unspecified lumbar vertebra, initial encounter for closed fracture (10) Diabetes mellitus, type 2 Diabetes mellitus usp insulin use: with usp use Diabetes mellitus complication status: with other specified complication Qualified Code(s): E11.69 - Type 2 diabetes mellitus with other specified complication; Z79.4 - jail (current) use of insulin
[2025-02-17 15:43] LABS: BUN Creatinine Ratio 14.7 (10-20); Calcium 7.3 mg/dl (8.6-10.3); Creatinine Clr Calc Pharmacy 127.7 ml/min; Potassium 3.9 mmol/L (3.5-5.1)
[2025-02-17] MEDS: ONDANSETRON INJ 2 MG/ML 2 ML VIAL IV PRN (16:26)
--- NOTE | 2025-02-17 18:25 | XRay Report ---
EXAM: XR KUB/Abdomen 1 view CLINICAL HISTORY: Nausea. TECHNIQUE: X-ray images of the abdomen were obtained in supine and upright positions. COMPARISON: Compared to the previous CT abd pelvis study dated 12/05/2024 FINDINGS: Gas Pattern: Gaseous distension of large bowel loops and to a lesser extent the ileal loops. No evidence of significant air fluid levels, no evidence of bowel obstruction. Soft Tissues: Soft tissues of the abdomen appear normal without evidence of masses or calcifications. Liver, spleen, and kidneys are improperly visualized. Vascular sent is seen in the right upper quadrant of the abdomen, possibly TIPS shunt. IMPRESSION: 1. Gaseous distension of large bowel loops and to a lesser extent the ileal loops. Clinical correlation advised. (new) 2. No evidence of acute bowel obstruction. 3. Vascular sent is seen in the right upper quadrant of the abdomen, possibly TIPS shunt. (new) Electronically signed by Lake Garcia 02-17-2025 6:24 PM
[2025-02-17] MEDS: POTASSIUM CHLORIDE 10 MEQ TABCR PO SCH (21:31)
[2025-02-17] MEDS: ACETAMINOPHEN 1,000 MG/100 ML VIAL IV STA (23:06)
[2025-02-17 23:39] LABS: Albumin Globulin Ratio 0.6 (0.9-2); BUN Creatinine Ratio 12.6 (10-20); Bilirubin,Total 4.9 mg/dl (0.2-1.0); Calcium 7.2 mg/dl (8.6-10.3); Creatinine Clr Calc Pharmacy 110.1 ml/min; Globulin 3.2 gm/dl (2.5-4.0); Potassium 3.2 mmol/L (3.5-5.1); Total Protein 5.2 gm/dl (6.0-8.3)
[2025-02-17 23:44] LABS: Troponin I High Sensitivity 16.3 pg/ml (0-20)
[2025-02-17] MEDS: OPTIRAY 320 125ml IV ONE (23:45)
[2025-02-17 23:52] LABS: Partial Thromboplastin Ratio 1.6; Partial Thromboplastin Time 42 Seconds (21-31)
[2025-02-17 23:57] LABS: Magnesium 1.5 mg/dl (1.7-2.4)
[2025-02-18] MEDS: ALBUMIN 25% 25 GM/100 ML VIAL IV ONE (00:06)
--- NOTE | 2025-02-18 04:08 | CT Scan Report ---
Exam(s): CT ABDOMEN + PELVIS With Contrast IV Amt: 118 ml optiray 320 EXAM: CT Angiography Chest and CT Abdomen and Pelvis With Intravenous Contrast CLINICAL HISTORY: Reason for exam: cp. TECHNIQUE: Axial computed tomographic angiography images of the chest and axial computed tomography images of the abdomen and pelvis with intravenous contrast. CTDI is 68.27 mGy and DLP is 2456.24 mGy-cm. Automated exposure control was utilized for the study. A dose lowering technique was utilized adhering to the principles of ALARA. MIP reconstructed images were created and reviewed. COMPARISON: CT chest dated 01/13/25, CT lumbar spine dated 02/07/2025, CT abdomen pelvis dated 12/05/2024 FINDINGS: CHEST: Aorta: No acute findings. No aortic aneurysm. No dissection. Pulmonary arteries: Unremarkable as visualized. No pulmonary embolism is identified. Great vessels of aortic arch: No acute findings. No dissection. No arterial occlusion or significant stenosis. Lungs: See below. Pleural space: Large left and small right pleural effusions. Associated atelectasis. No pneumothorax. Heart: Unremarkable. No cardiomegaly. No significant pericardial effusion. ABDOMEN: Liver: Nodular cirrhotic liver. Stable 3 cm heterogeneous lesion with coarse calcification in the right hepatic lobe. TIPS, new since 01/13/2025. Gallbladder and bile ducts: Cholelithiasis. No ductal dilation. Pancreas: Unremarkable. No ductal dilation. No mass. Spleen: Unremarkable. No splenomegaly. Adrenals: Unremarkable. No mass. Kidneys and ureters: Unremarkable. No hydronephrosis. No solid mass. Stomach and bowel: There is fluid in the colon suggesting diarrhea. No obstruction. No mucosal thickening. PELVIS: Appendix: Normal appendix. No findings to suggest acute appendicitis. Bladder: Unremarkable. No mass. Reproductive: Unremarkable as visualized. CHEST, ABDOMEN and PELVIS: Intraperitoneal space: Small to moderate ascites in the abdomen and pelvis. No free air. Bones/joints: Degenerative changes of the thoracic with flowing anterior osteophytes/diffuse idiopathic skeletal hyperostosis. Mild L1 and L2 compression deformities, similar to 02/07/2025 CT L spine. No dislocation. Soft tissues: Umbilical hernia containing lobular 7 cm fluid, similar appearance on the priors. Diffuse soft tissue edema suggesting anasarca. Lymph nodes: Unremarkable. No enlarged lymph nodes. IMPRESSION: 1. No acute abnormality of the arteries of the chest. 2. Large left and small right pleural effusions. Associated atelectasis. 3. Mild L1 and L2 compression deformities, similar to 02/07/2025 CT L spine. 4. Nodular cirrhotic liver and portal hypertension. TIPS, new since 01/13/2025. 5. Umbilical hernia containing lobular 7 cm fluid, similar appearance on the priors. 6. There is fluid in the colon suggesting diarrhea. 7. Diffuse soft tissue edema suggesting anasarca. Electronically signed by: Tong Yancey M.D. 02/18/25 04:07 AM
[2025-02-18 04:57] LABS: BUN Creatinine Ratio 12.4 (10-20); Calcium 7.1 mg/dl (8.6-10.3); Creatinine Clr Calc Pharmacy 107.6 ml/min; Potassium 3.1 mmol/L (3.5-5.1)
[2025-02-18 05:04] LABS: Troponin I High Sensitivity 19.2 pg/ml (0-20)
[2025-02-18] MEDS: POTASSIUM CHLORIDE CRTAB 20 MEQ TABCR PO STA ×2 (05:34→09:40)
[2025-02-18] MEDS: MAGNESIUM SULFATE / D5W 1 GM/100 ML BAG IV SCH (05:34)
--- NOTE | 2025-02-18 08:59 | Nephrology Progress Note ---
Date of Service February 18, 2025 Assessment & Plan Admission and Anticipated Discharge Date Admission Date: February 08, 2025 Subjective Assessment & Plan (1) Hyponatremia: Hyponatremia as expected In a patient with Cirrhosis. He was on diuretics before but not now. Lack of torsemide will cause some drop in na and will restart at 20 bid for now. Did restart home dose of ailyn.l 40 bid. even then low k of 3.1 so give extra 40 meq. Also add aldactone 25 bid. also low mag and getting iv mag No urea ( he does not like it plus I dont like giving in Cirrhosis patient) Continue Salt tab -lower to 1 gm daily like at home. with his Cirrhosis if we can keep Na close to 130 , it will be called success. na did go up slightly to 127 so we are getting close to goal. BMP q12. (2) Lumbar compression fracture: Primary reason for admission (3) BERT (acute kidney injury): had Creat of 1..5 but since then normal currently. Actually use a slightly higher dose of torsemide 20 daily and also Aldactone for outpt. We need to monitor closely with this change S--No new issues. has back pain Physical Exam Physical Exam: General Appearance:chronically ill appearing, no distress Neck: supple, Trachea midline Respiratory/Chest: Normal breath sounds, CTA, No accessory muscle use Cardiovascular: S1, S2, +murmur Abdomen/GI:Soft, nondistended, nontender Back+Brace Extremities/Musculoskeletal: no edema Neurologic/Psych:AAOX3, grossly no focal neurological deficits Skin: normal color, warm, + jaundice Results & Data Vital Signs (Past 12 Hours) Vital Signs Temp Pulse Pulse Resp BP BP Pulse Ox 02/18/25 08:28 36.8 C 83 17 95/57 L 96 02/18/25 02:44 36.9 C 90 18 102/53 L 97 02/18/25 00:00 106 H 02/17/25 23:00 02/17/25 22:00 36.5 C 105 H 18 93/56 L 93 O2 Del Method 02/18/25 08:28 Room Air 02/18/25 02:44 Room Air 02/18/25 00:00 02/17/25 23:00 Room Air 02/17/25 22:00 Room Air
[2025-02-18] MEDS: SPIRONOLACTONE 25 MG TAB PO SCH (09:40)
--- NOTE | 2025-02-18 10:23 | Electrocardiogram Report ---
Test Reason : Blood Pressure : */* mmHG Vent. Rate : 99 BPM Atrial Rate : 99 BPM P-R Int : 112 ms QRS Dur : 86 ms QT Int : 434 ms P-R-T Axes : 37 34 36 degrees QTcB Int : 556 ms Normal sinus rhythm Nonspecific ST abnormality Prolonged QT Abnormal ECG When compared with ECG of 07-Feb-2025 18:33, QT has lengthened Confirmed by Rehan Brown ([id number]) on 02/18/2025 10:23:12 AM Referred By: REFERRED SELF Confirmed By: Rehan Brown
[2025-02-18] MEDS: MAGNESIUM SULFATE / D5W 1 GM/100 ML BAG IV ONE (12:07)
--- NOTE | 2025-02-18 15:09 | Hospitalist Progress Note ---
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 Patient was admitted in first week of December with shortness of breath and acute blood loss anemia with hemoglobin 6.8 and received 1 unit of PRBC. During the admission he was status post EGD which showed portal hypertensive gastropathy and portal duodenopathy and did fine and was discharged home. Patient was again admitted on 01/13/2025 as patient was found to be lethargic when undergoing routine paracentesis and found to have large left pleural effusion and also recurrent blood loss anemia and hepatic encephalopathy and also found to left rib fracture from falls. Patient was status post chest tube placement on 01/13/2025 and status post paracentesis with 7 L of fluid removed and patient was transferred to [place] for TIPS procedure on 01/14/2025. Patient was also treated for possible SBP for 5 days with Rocephin and was started on ciprofloxacin 5 mg daily for SBP prophylaxis. Patient is status post TIPS procedure on 01/27/2025. His midodrine was increased to15 mg 3 times daily. He was placed on torsemide 10 mg daily and spironolactone 50 mg daily. Patient was discharged on 01/29/2025 from [place]. Patient lives at home with his mother and brother. Patient says he was doing okay after TIPS procedure. Currently not required paracentesis after TIPS procedure. Today he rolled and slipped from the bed and fell down around 2 PM. He was very weak on arms and legs and could not get up. He laid on the floor until his brother came at 6:30 PM. And he was able to get up but he was very weak to get into the couch and was brought in here. Denies any fevers. Denies chest pain. Denies shortness of breath. Appetite is okay. Denies headache. No cough. No runny nose. No nausea. No abdominal pain. States he is moving bowels only once daily currently. Micturating okay. Acute compression fracture of L1 and L2 Fall Generalized weakness Fell from bed while turning around without any loss of consciousness --Lumbar CT:Acute compression fractures of the L1 and L2 vertebral bodies without posterior retropulsion. Otherwise no change. The patient orthopedic spine input Conservative management per Ortho Continue brace with activity Continue PT OT, fall precautions No lifting over 5 to 10 pounds Needs follow-up with orthopedics in 2 weeks on discharge Plan to discharge to rehab facility when accepted Continue current management Fracture of left proximal fibula--Subacute Suspected Maisonneuve injury Likely secondary to prior fall -Imaging:There is a subacute, unhealed, anatomically aligned fracture of the left fibular neck with developing callus. --Appreciate orthopedics input. Do not recommend any surgical intervention currently. No real restrictions for left lower extremity per Ortho Pain is controlled Acute on chronic hyponatremia Sodium levels dropped to 123 Intermittent nausea likely contributing in setting of liver disease Volume overload due to holding diuretics secondary to BERT could be causing hyponatremia as well Restart home torsemide On salt tablets at home, continue Monitor sodium levels Appreciate nephrology input Antiemetics as needed Continue diuretics per nephrology Sodium levels improved to 126 today Monitor volume status closely Oral ulceration Looks like Aphthous Was given lidocaine viscus and things are improving Advised to switch and spit out to avoid nausea Denies any oral pain Acute Kidney Injury Cr: 1.5>>0.89>0.76 Received gentle IV fluids Avoid nephrotoxic agents as able Renal function stable Hypokalemia Hypomagnesemia Replace and monitor Questionable pneumonia on chest x-ray Acute to subacute left rib fractures--POA --Chest CT:Increased size of large left pleural effusion with complete collapse of the left lung. Nondisplaced acute to recent subacute lower left rib fractures. Otherwise as described. -- Continue incentive spirometry --No indication for antibiotics currently Gonzales liver cirrhosis On lactulose and Xifaxan S/P TIPS Total bili 3.6 same as previous labs Continue midodrine 15 mg p.o. 3 times daily Patient is getting evaluated for liver transplant Monitor for volume overload Ascites secondary to above Recently had TIPS procedure Resumed home diuretics Chronic thrombocytopenia No acute bleeding issues Monitor platelet count Hemoglobin, platelet count stable Moderate aortic stenosis Pulmonary hypertension Follow-up with cardiology History of hepatocellular carcinoma/liver lesions Patient received embolization of the right lower lobe lesion in 07/2023 Repeat MRI in 01/2024 showed treatment cavity enhancement patient subsequently treated with TACE MRI on 11/14/2024 showed abnormalities in hepatic segment 7 and currently as per patient getting SBRT Will have outpatient appointment with the RT therapy service DM II Continue home Lantus Sliding scale monitor BGs Anemia of chronic disease Hemoglobin 8.9 monitor History of left hepatic hydrothorax Recent needed chest tube placement History of gout continue Allopurinol BPH On Flomax Monitor for urinary retention Hyperlipidemia On Lipitor DVT prophylaxis SCDs Re: Significant thrombocytopenia CODE STATUS Full code Disposition Rehab when accepted (2) Fracture of left proximal fibula: (3) Lumbar compression fracture: (4) BERT (acute kidney injury): (5) Recurrent falls while walking: (6) Hyponatremia: (7) Ascites: (8) Cirrhosis: (9) Thrombocytopenia: (10) Diabetes mellitus, type 2: Admission and Anticipated Discharge Date Admission Date: February 08, 2025 Subjective Patient is seen and examined at bedside States feeling tired Also reports some dyspnea on exertion Had PT evaluation earlier today No other complaints today Denies any nausea, vomiting today Also denies any chest pain, dyspnea, abdominal pain, dizziness Review of Systems Review of Systems: All systems reviewed & are unremarkable except as noted in Subjective Physical Exam Physical Exam: Physical Exam: Vitals signs as noted above General Appearance:Moderately built and nourished, chronically ill appearing, no distress Head: normocephalic, Atraumatic Eyes: normal inspection, EOMI Neck: supple, Trachea midline Respiratory/Chest: Normal breath sounds, CTA, No accessory muscle use Cardiovascular: S1, S2, +murmur Abdomen/GI:Soft, nondistended, nontender, bowel sounds present Back+Brace Extremities/Musculoskeletal:normal inspection, no edema Neurologic/Psych:AAOX3, grossly no focal neurological deficits Skin: normal color, warm, + jaundice Results & Data Results & Data Vital Signs (Past 12 Hours) Vital Signs Temp Pulse Pulse Resp BP Pulse Ox O2 Del Method 02/18/25 13:05 93 H 02/18/25 11:46 36.6 C 86 17 95/59 L 98 Room Air 02/18/25 08:28 36.8 C 83 17 95/57 L 96 Room Air 02/18/25 05:41 89 Laboratory Results [facility] 02/17/25 02/17/25 02/18/25 15:09 23:02 04:15 Sodium 124 L 125 L 126 L Potassium 3.9 3.2 L 3.1 L Chloride 99 96 L 96 L Carbon Dioxide 23 25 27 BUN 11 11 11 Creatinine 0.75 0.87 0.89 Glucose 173 H 143 H 93 Calcium 7.3 L 7.2 L 7.1 L Liver Function 02/17/25 Range/Units 23:02 Total Bilirubin 4.9 H (0.2-1.0) mg/dl AST 344 H (13-39) U/L ALT 92 H (7-52) U/L Alkaline Phosphatase 265 H (34-104) U/L Albumin 2.0 L (3.4-5.0) gm/dl (3) Lumbar compression fracture Encounter type: initial encounter Lumbar vertebra fracture level: unspecified lumbar vertebra Qualified Code(s): S32.000A - Wedge compression fracture of unspecified lumbar vertebra, initial encounter for closed fracture (10) Diabetes mellitus, type 2 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
[2025-02-18] MEDS: MAGNESIUM CHLORIDE W/CALCIUM 64MG DELAYED REL TAB PO SCH (21:34)
[2025-02-19 06:10] LABS: Appearance Urine Clear (Clear); Bacteria Urine Automated None Seen (None Seen); Bilirubin Urine Negative (Negative); Blood Urine 3+ (Negative); Color Urine Yellow; Epithelial Cell Urine Auto 0-2 /hpf (0-2); Glucose Urine UA Negative (Negative); Ketones Urine Negative (Negative); Leukocyte Esterase Urine Negative (Negative); Nitrite Urine Negative (Negative); Protein Urine Negative (Negative); Specific Gravity Urine 1.009 (1.000-1.030); Urobilinogen Urine Negative (Negative); WBC Urine Automated 0-5 /hpf (0-5)
[2025-02-19 07:50] LABS: Hematocrit (blood only) 22.4 % (42.0-52.0); Mean Corpuscular Hemoglobin 33.6 pg (25.0-34.0); Mean Corpuscular Hgb Conc 35.7 g/dL (32.0-36.0); Mean Corpuscular Volume 94.1 fL (80.0-100.0); Mean Platelet Volume 10.7 fL (9.4-12.4); Platelet Count 79 K/uL (130-400); RDW Coefficient of Variation 24.6 % (11.5-14.5); RDW Standard Deviation 79.6 fL (36.4-46.3); Red Blood Count 2.38 M/uL (4.70-6.10); White Blood Count 6.91 K/ul (4.8-10.8)
[2025-02-19 08:20] LABS: Calcium 7.3 mg/dl (8.6-10.3); Magnesium 1.7 mg/dl (1.7-2.4); Potassium 3.7 mmol/L (3.5-5.1)
[2025-02-19 08:26] LABS: BUN Creatinine Ratio 12.4 (10-20); Creatinine Clr Calc Pharmacy 97.6 ml/min
[2025-02-19] MEDS: SODIUM CHLORIDE 1 GM TABLET PO SCH ×2 (09:46→22:06)
--- NOTE | 2025-02-19 10:12 | Nephrology Progress Note ---
Date of Service February 19, 2025 Assessment & Plan Admission and Anticipated Discharge Date Admission Date: February 08, 2025 Subjective Assessment & Plan (1) Hyponatremia: Hyponatremia as expected In a patient with Cirrhosis. He was on diuretics before but not now. Lack of torsemide will cause some drop in na and will restart at 20 bid for now. Did restart home dose of ailyn.l 40 bid. even then low k of 3.1 so give extra 40 meq. Also add aldactone 25 bid. today k is better No urea ( he does not like it plus I dont like giving in Cirrhosis patient) raise Salt tab -1 gm twice daily Lower FFR to 1500 ml--was not on one till yesterday. So likely drank too much yesterday and we are seeing Lower nA today with his Cirrhosis if we can keep Na 125+ it will be called success. na did go up slightly to 127 so we are getting close to goal. (2) Lumbar compression fracture: Primary reason for admission (3) BERT (acute kidney injury): had Creat of 1..5 but since then normal currently. We need to monitor closely with higher dose of diuretics currently. S--had lowish BP and got Albumin overnight. No new issues. has back pain. waiting for rehab placement Physical Exam Physical Exam: General Appearance:chronically ill appearing, no distress Neck: supple, Trachea midline Respiratory/Chest: Normal breath sounds, CTA, No accessory muscle use Cardiovascular: S1, S2, +murmur Abdomen/GI:Soft, nondistended, nontender Back+Brace Extremities/Musculoskeletal: no edema Neurologic/Psych:AAOX3, grossly no focal neurological deficits Skin: normal color, warm, + jaundice Results & Data Vital Signs (Past 12 Hours) Vital Signs Temp Pulse Pulse Resp BP Pulse Ox O2 Del Method 02/19/25 07:45 37.0 C 90 20 91/50 L 95 Room Air 02/19/25 03:34 36.7 C 94 H 18 104/64 95 Room Air 02/18/25 23:25 36.6 C 94 H 16 96/62 L 97 Room Air 02/18/25 23:00 97 H
--- NOTE | 2025-02-19 17:16 | Hospitalist Progress Note ---
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 Patient was admitted in first week of December with shortness of breath and acute blood loss anemia with hemoglobin 6.8 and received 1 unit of PRBC. During the admission he was status post EGD which showed portal hypertensive gastropathy and portal duodenopathy and did fine and was discharged home. Patient was again admitted on 01/13/2025 as patient was found to be lethargic when undergoing routine paracentesis and found to have large left pleural effusion and also recurrent blood loss anemia and hepatic encephalopathy and also found to left rib fracture from falls. Patient was status post chest tube placement on 01/13/2025 and status post paracentesis with 7 L of fluid removed and patient was transferred to [place] for TIPS procedure on 01/14/2025. Patient was also treated for possible SBP for 5 days with Rocephin and was started on ciprofloxacin 5 mg daily for SBP prophylaxis. Patient is status post TIPS procedure on 01/27/2025. His midodrine was increased to15 mg 3 times daily. He was placed on torsemide 10 mg daily and spironolactone 50 mg daily. Patient was discharged on 01/29/2025 from [place]. Patient lives at home with his mother and brother. Patient says he was doing okay after TIPS procedure. Currently not required paracentesis after TIPS procedure. Today he rolled and slipped from the bed and fell down around 2 PM. He was very weak on arms and legs and could not get up. He laid on the floor until his brother came at 6:30 PM. And he was able to get up but he was very weak to get into the couch and was brought in here. Denies any fevers. Denies chest pain. Denies shortness of breath. Appetite is okay. Denies headache. No cough. No runny nose. No nausea. No abdominal pain. States he is moving bowels only once daily currently. Micturating okay. Acute compression fracture of L1 and L2 Fall Generalized weakness Fell from bed while turning around without any loss of consciousness --Lumbar CT:Acute compression fractures of the L1 and L2 vertebral bodies without posterior retropulsion. Otherwise no change. The patient orthopedic spine input Conservative management per Ortho Continue brace with activity Continue PT OT, fall precautions No lifting over 5 to 10 pounds Needs follow-up with orthopedics in 2 weeks on discharge Plan to discharge to rehab facility when accepted Fracture of left proximal fibula--Subacute Suspected Maisonneuve injury Likely secondary to prior fall -Imaging:There is a subacute, unhealed, anatomically aligned fracture of the left fibular neck with developing callus. --Appreciate orthopedics input. Do not recommend any surgical intervention currently. No real restrictions for left lower extremity per Ortho Pain is controlled Acute on chronic hyponatremia Sodium levels dropped to 123 Intermittent nausea likely contributing in setting of liver disease Volume overload due to holding diuretics secondary to BERT could be causing hyponatremia as well Restart home torsemide On salt tablets at home, increased to twice daily Monitor sodium levels Appreciate nephrology input Antiemetics as needed Continue diuretics per nephrology Sodium levels improved to 124 today Monitor volume status closely Fluid restrictions added to 1500 mL/day Oral ulceration Looks like Aphthous Was given lidocaine viscus and things are improving Advised to switch and spit out to avoid nausea Denies any oral pain Acute Kidney Injury Cr: 1.5>>0.97 Received gentle IV fluids Avoid nephrotoxic agents as able Renal function stable Hypokalemia Hypomagnesemia Replace and monitor Questionable pneumonia on chest x-ray Acute to subacute left rib fractures--POA --Chest CT:Increased size of large left pleural effusion with complete collapse of the left lung. Nondisplaced acute to recent subacute lower left rib frac tures. Otherwise as described. -- Continue incentive spirometry --No indication for antibiotics currently Gonzales liver cirrhosis On lactulose and Xifaxan S/P TIPS Total bili 3.6 same as previous labs Continue midodrine 15 mg p.o. 3 times daily Patient is getting evaluated for liver transplant Monitor for volume overload Ascites secondary to above Recently had TIPS procedure Resumed home diuretics Chronic thrombocytopenia No acute bleeding issues Monitor platelet count Hemoglobin, platelet count stable Moderate aortic stenosis Pulmonary hypertension Follow-up with cardiology History of hepatocellular carcinoma/liver lesions Patient received embolization of the right lower lobe lesion in 07/2023 Repeat MRI in 01/2024 showed treatment cavity enhancement patient subsequently treated with TACE MRI on 11/14/2024 showed abnormalities in hepatic segment 7 and currently as per patient getting SBRT Radiation therapy per radiation oncology DM II Continue home Lantus Sliding scale monitor BGs Anemia of chronic disease Hemoglobin 8.9 monitor History of left hepatic hydrothorax Recent needed chest tube placement History of gout continue Allopurinol BPH On Flomax Monitor for urinary retention Hyperlipidemia On Lipitor DVT prophylaxis SCDs Re: Significant thrombocytopenia CODE STATUS Full code Disposition Rehab when accepted (2) Fracture of left proximal fibula: (3) Lumbar compression fracture: (4) BERT (acute kidney injury): (5) Recurrent falls while walking: (6) Hyponatremia: (7) Ascites: (8) Cirrhosis: (9) Thrombocytopenia: (10) Diabetes mellitus, type 2: Admission and Anticipated Discharge Date Admission Date: February 08, 2025 Subjective Patient is seen and examined at bedside Reports having generalized weakness Was having PT evaluation during my encounter Discussed with nephrology today Back pain is controlled No other complaints today Review of Systems Review of Systems: All systems reviewed & are unremarkable except as noted in Subjective Physical Exam Physical Exam: Physical Exam: Vitals signs as noted above General Appearance:Moderately built and nourished, chronically ill appearing, no distress Head: normocephalic, Atraumatic Eyes: normal inspection, EOMI Neck: supple, Trachea midline Respiratory/Chest: Normal breath sounds, CTA, No accessory muscle use Cardiovascular: S1, S2, +murmur Abdomen/GI:Soft, nondistended, nontender, bowel sounds present Back+Brace Extremities/Musculoskeletal:normal inspection, no edema Neurologic/Psych:AAOX3, grossly no focal neurological deficits Skin: normal color, warm, + jaundice Results & Data Results & Data Vital Signs (Past 12 Hours) Vital Signs Temp Pulse Pulse Resp BP Pulse Ox O2 Del Method 02/19/25 16:53 96 H 02/19/25 15:14 36.6 C 96 H 20 93/51 L 97 Room Air 02/19/25 11:11 36.8 C 92 H 20 102/62 96 Room Air 02/19/25 07:45 37.0 C 90 20 91/50 L 95 Room Air 02/19/25 07:30 91 H (3) Lumbar compression fracture Encounter type: initial encounter Lumbar vertebra fracture level: unspecified lumbar vertebra Qualified Code(s): S32.000A - Wedge compression fracture of unspecified lumbar vertebra, initial encounter for closed fracture (10) Diabetes mellitus, type 2 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
[2025-02-20 08:01] LABS: BUN Creatinine Ratio 13.7 (10-20); Calcium 7.5 mg/dl (8.6-10.3); Creatinine Clr Calc Pharmacy 93.5 ml/min; Magnesium 1.7 mg/dl (1.7-2.4); Potassium 3.8 mmol/L (3.5-5.1)
--- NOTE | 2025-02-20 10:06 | Nephrology Progress Note ---
Date of Service February 20, 2025 Assessment & Plan Admission and Anticipated Discharge Date Admission Date: February 08, 2025 Subjective Assessment & Plan (1) Hyponatremia: Hyponatremia as expected In a patient with Cirrhosis. He was on diuretics before but not now. Lack of torsemide will cause some drop in na and will restart at 20 bid for now. Did restart home dose of ailyn.l 40 bid. even then low k of 3.1 so give extra 40 meq. Also add aldactone 25 bid. today k is better No urea ( he does not like it plus I dont like giving in Cirrhosis patient) raise Salt tab -1 gm twice daily continue torsemide 20 bid, Aldactone 25 bid and salt tab 1 gm bid Continue FFR to 1500 ml with his Cirrhosis if we can keep Na 125+ it will be called success. has been able to keep it there na was 126 this AM so we are getting close to goal. (2) Lumbar compression fracture: Primary reason for admission (3) BERT (acute kidney injury): had Creat of 1..5 but since then normal currently. We need to monitor closely with higher dose of diuretics currently. S-- No new issues. has back pain. waiting for rehab placement Physical Exam Physical Exam: General Appearance:chronically ill appearing, no distress Neck: supple, Trachea midline Respiratory/Chest: Normal breath sounds, CTA, No accessory muscle use Cardiovascular: S1, S2, +murmur Abdomen/GI:Soft, nondistended, nontender Back+Brace Extremities/Musculoskeletal: no edema Neurologic/Psych:AAOX3, grossly no focal neurological deficits Skin: normal color, warm, + jaundice Results & Data Vital Signs (Past 12 Hours) Vital Signs Temp Pulse Pulse Resp BP Pulse Ox O2 Del Method 02/20/25 07:49 36.9 C 90 20 95/60 L 95 Room Air 02/20/25 07:23 95 H 02/20/25 03:59 36.8 C 94 H 20 97/61 L 94 Room Air 02/19/25 23:56 100 H 02/19/25 23:34 36.6 C 95 H 20 103/62 94 Room Air
--- NOTE | 2025-02-20 17:16 | Hospitalist Progress Note ---
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 Patient was admitted in first week of December with shortness of breath and acute blood loss anemia with hemoglobin 6.8 and received 1 unit of PRBC. During the admission he was status post EGD which showed portal hypertensive gastropathy and portal duodenopathy and did fine and was discharged home. Patient was again admitted on 01/13/2025 as patient was found to be lethargic when undergoing routine paracentesis and found to have large left pleural effusion and also recurrent blood loss anemia and hepatic encephalopathy and also found to left rib fracture from falls. Patient was status post chest tube placement on 01/13/2025 and status post paracentesis with 7 L of fluid removed and patient was transferred to [place] for TIPS procedure on 01/14/2025. Patient was also treated for possible SBP for 5 days with Rocephin and was started on ciprofloxacin 5 mg daily for SBP prophylaxis. Patient is status post TIPS procedure on 01/27/2025. His midodrine was increased to15 mg 3 times daily. He was placed on torsemide 10 mg daily and spironolactone 50 mg daily. Patient was discharged on 01/29/2025 from [place]. Patient lives at home with his mother and brother. Patient says he was doing okay after TIPS procedure. Currently not required paracentesis after TIPS procedure. Today he rolled and slipped from the bed and fell down around 2 PM. He was very weak on arms and legs and could not get up. He laid on the floor until his brother came at 6:30 PM. And he was able to get up but he was very weak to get into the couch and was brought in here. Denies any fevers. Denies chest pain. Denies shortness of breath. Appetite is okay. Denies headache. No cough. No runny nose. No nausea. No abdominal pain. States he is moving bowels only once daily currently. Micturating okay. Acute compression fracture of L1 and L2 Fall Generalized weakness Fell from bed while turning around without any loss of consciousness --Lumbar CT:Acute compression fractures of the L1 and L2 vertebral bodies without posterior retropulsion. Otherwise no change. The patient orthopedic spine input Conservative management per Ortho Continue brace with activity Continue PT OT, fall precautions No lifting over 5 to 10 pounds Needs follow-up with orthopedics in 2 weeks on discharge Plan to discharge to rehab facility when accepted 02/20 pain well managed by meds per patient Fracture of left proximal fibula--Subacute Suspected Maisonneuve injury Likely secondary to prior fall -Imaging:There is a subacute, unhealed, anatomically aligned fracture of the left fibular neck with developing callus. --Appreciate orthopedics input. Do not recommend any surgical intervention currently. No real restrictions for left lower extremity per Ortho Pain is controlled Acute on chronic hyponatremia Sodium levels dropped to 123 Intermittent nausea likely contributing in setting of liver disease Volume overload due to holding diuretics secondary to BERT could be causing hyponatremia as well Restart home torsemide On salt tablets at home, increased to twice daily Monitor sodium levels Appreciate nephrology input Antiemetics as needed Continue diuretics per nephrology Sodium levels improved to 124 today Monitor volume status closely Fluid restrictions added to 1500 mL/day 02/20 Na 124 --> 126 continue Salt tab BID appreciate Nephro recommendations Oral ulceration Looks like Aphthous Was given lidocaine viscus and things are improving Advised to switch and spit out to avoid nausea Denies any oral pain Acute Kidney Injury Cr: 1.5>>0.97 Received gentle IV fluids Avoid nephrotoxic agents as able Renal function stable Hypokalemia Hypomagnesemia Replace and monitor Questionable pneumonia on chest x-ray Acute to subacute left rib fractures--POA --Chest CT:Increased size of large left pleural effusion with complete collapse of the left lung. Nondisplaced acute to recent subacute lower left rib fractures. Otherwise as described. -- Continue incentive spirometry --No indication for antibiotics currently Gonzales liver cirrhosis On lactulose and Xifaxan S/P TIPS Total bili 3.6 same as previous labs Continue midodrine 15 mg p.o. 3 times daily Patient is getting evaluated for liver transplant Monitor for volume overload Ascites secondary to above Recently had TIPS procedure Resumed home diuretics Chronic thrombocytopenia No acute bleeding issues Monitor platelet count Hemoglobin, platelet count stable Moderate aortic stenosis Pulmonary hypertension Follow-up with cardiology History of hepatocellular carcinoma/liver lesions Patient received embolization of the right lower lobe lesion in 07/2023 Repeat MRI in 01/2024 showed treatment cavity enhancement patient subsequently t reated with TACE MRI on 11/14/2024 showed abnormalities in hepatic segment 7 and currently as per patient getting SBRT Radiation therapy per radiation oncology 02/20 received message from Oncology planning to perform radiation therapy next week- mod-mon-mon will need Dexamethaxone 4mg 1 hour prior to each treatment- orders placed DM II Continue home Lantus Sliding scale monitor BGs Anemia of chronic disease Hemoglobin 8.9 monitor History of left hepatic hydrothorax Recent needed chest tube placement History of gout continue Allopurinol BPH On Flomax Monitor for urinary retention Hyperlipidemia On Lipitor DVT prophylaxis SCDs Re: Significant thrombocytopenia CODE STATUS Full code Disposition Rehab when accepted, Na level acceptable (2) Fracture of left proximal fibula: (3) Lumbar compression fracture: (4) BERT (acute kidney injury): (5) Recurrent falls while walking: (6) Hyponatremia: (7) Ascites: (8) Cirrhosis: (9) Thrombocytopenia: (10) Diabetes mellitus, type 2: Admission and Anticipated Discharge Date Admission Date: February 08, 2025 Subjective Follow-up for weakness, hyponatremia, liver cirrhosis, hepatocellular cancer, etc. Seen resting in bed, comfortable, in good spirits States he feels okay overall Has chronic back pain No abdominal pain, nausea, fevers or chills No other new symptoms Review of Systems Review of Systems: all noted and negative except for above Physical Exam Physical Exam: General- oriented x 3, not in distress, speaks in sentences with no effort or accessory muscle use Eyes- anicteric Neck- no JVD Lungs- clear breath sounds bilaterally, no rales/wheezes Heart- normal rate, regular rhythm; (+) murmur Abdomen- normal bowel sounds, nondistended, soft, nontender Extremities- no pretibial edema, no calf tenderness Neuro- alert, oriented x 3; no gross focal neurologic deficits Skin- warm & dry Results & Data Results & Data Vital Signs (Past 12 Hours) Vital Signs Temp Pulse Pulse Pulse Resp BP BP 02/20/25 15:55 36.8 C 95 H 18 87/51 L 02/20/25 15:02 103 H 02/20/25 07:49 36.9 C 90 20 95/60 L 02/20/25 07:23 95 H Pulse Ox O2 Del Method 02/20/25 15:55 93 Room Air 02/20/25 15:02 02/20/25 07:49 95 Room Air 02/20/25 07:23 all noted and reviewed including below (3) Lumbar compression fracture Encounter type: initial encounter Lumbar vertebra fracture level: unspecified lumbar vertebra Qualified Code(s): S32.000A - Wedge compression fracture of unspecified lumbar vertebra, initial encounter for closed fracture (10) Diabetes mellitus, type 2 Diabetes mellitus skilled nursing insulin use: with skilled nursing use Diabetes mellitus complication status: with other specified complication Qualified Code(s): E11.69 - Type 2 diabetes mellitus with other specified complication; Z79.4 - retirement (current) use of insulin
[2025-02-21 06:53] LABS: Hematocrit (blood only) 22.8 % (42.0-52.0); Hemoglobin 8.1 g/dl (14.0-18.0); Mean Corpuscular Hemoglobin 33.1 pg (25.0-34.0); Mean Corpuscular Hgb Conc 35.5 g/dL (32.0-36.0); Mean Corpuscular Volume 93.1 fL (80.0-100.0); Mean Platelet Volume 9.9 fL (9.4-12.4); Platelet Count 74 K/uL (130-400); RDW Coefficient of Variation 24.4 % (11.5-14.5); RDW Standard Deviation 80.8 fL (36.4-46.3); Red Blood Count 2.45 M/uL (4.70-6.10); White Blood Count 6.11 K/ul (4.8-10.8)
[2025-02-21 07:31] LABS: Calcium 7.7 mg/dl (8.6-10.3); Creatinine Clr Calc Pharmacy 88.6 ml/min; Potassium 4.2 mmol/L (3.5-5.1)
--- NOTE | 2025-02-21 07:47 | Hospitalist Progress Note ---
Date of Service February 21, 2025 Assessment & Plan (1) Generalized weakness: Plan: Mr. 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 Patient noted to have lumbar compression fracture, left proximal fibular fracture and acute on chronic hyponatremia. Hyponatremia more stable and uptrending and pain controlled. Will need to await rad onc treatments prior to discharge to rehab. #Acute on chronic hyponatremia Sodium levels dropped to 123 Multifactorial, likely also iso cirrhotic patient Nephrology consulted Increased home salt tab to 1gm bid Reviewed nephro recommendations: goal is to keep NA 125 or greater Continue torsemide 20 bid and aldactone montior na level, better today at 127 Fluid restrictions added to 1500 mL/day #Hypokalemia replace with KCL BID 30meq (lower than home 40meq) prn dosing to keep >4.0 follow bmp #Acute compression fracture of L1 and L2 #Mechanical Fall #Generalized weakness Fell from bed while turning around without any loss of consciousness --Lumbar CT:Acute compression fractures of the L1 and L2 vertebral bodies without posterior retropulsion. Otherwise no change. The patient orthopedic spine input Conservative management per Ortho Continue brace with activity Continue PT OT, fall precautions No lifting over 5 to 10 pounds Needs follow-up with orthopedics in 2 weeks on discharge Plan to discharge to rehab facility when accepted #Fracture of left proximal fibula--Subacute Suspected Maisonneuve injury Likely secondary to prior fall -Imaging:There is a subacute, unhealed, anatomically aligned fracture of the left fibular neck with developing callus. --Appreciate orthopedics input. Do not recommend any surgical intervention currently. No real restrictions for left lower extremity per Ortho Pain noted to be in calves, starting lyrica and topical agent prn #Oral ulceration improving Looks like Aphthous Was given lidocaine viscus and things are improving Advised to switch and spit out to avoid nausea Denies any oral pain #Acute Kidney Injury*resolved Cr: 1.5>>0.97 Received gentle IV fluids Avoid nephrotoxic agents as able Renal function stable #Questionable pneumonia on chest x-ray #Acute to subacute left rib fractures--POA --Chest CT:Increased size of large left pleural effusion with complete collapse of the left lung. Nondisplaced acute to recent subacute lower left rib fractu res. Otherwise as described. -- Continue incentive spirometry #Gonzales liver cirrhosis s.p TIPS #hepatocellular carcinoma/liver lesions Patient received embolization of the right lower lobe lesion in 07/2023 Repeat MRI in 01/2024 showed treatment cavity enhancement patient subsequently treated with TACE MRI on 11/14/2024 showed abnormalities in hepatic segment 7 and currently as per patient getting SBRT Radiation therapy per radiation oncology On lactulose and Xifaxan Total bili 3.6 same as previous labs Continue midodrine 15 mg p.o. 3 times daily Patient is getting evaluated for liver transplant Monitor for volume overload, continue diuertics Rad Onc with planned treatments next week potentially T,W,Mon (will need Dexamethaxone 4mg 1 hour prior to each treatment) #Chronic thrombocytopenia 2/2 cirrhosis No acute bleeding issues Monitor platelet count Hemoglobin, platelet count stable #Moderate aortic stenosis Pulmonary hypertension Follow-up with cardiology #DM II Continue home Lantus Sliding scale monitor BGs #Anemia of chronic disease Hemoglobin 8.9 monitor #History of left hepatic hydrothorax Recent needed chest tube placement stable at this time #gout continue Allopurinol #BPH On Flomax Monitor for urinary retention #Hyperlipidemia On Lipitor DVT prophylaxis SCDs Re: Significant thrombocytopenia CODE STATUS Full code Disposition Rehab when accepted, Na level acceptable; will need to complete radiation treatments (2) Fracture of left proximal fibula: (3) Lumbar compression fracture: (4) BERT (acute kidney injury): (5) Recurrent falls while walking: (6) Hyponatremia: (7) Ascites: (8) Cirrhosis: (9) Thrombocytopenia: (10) Diabetes mellitus, type 2: Admission and Anticipated Discharge Date Admission Date: February 08, 2025 Subjective NAEO however, notes that weakness is ongoing and notably limited due to cramping in BLE Agreeable to trial of lyrica and perhaps topical analgesia to aid in symptoms Denies any nausea vomiting or other acute concerns reports everything else is baseline and eager for rad onc treatments so he can go to rehab Physical Exam Constitutional: pleasant, chronically ill appearing gentleman Respiratory: normal respiratory effort, lungs clear to auscultation Cardiovascular: RRR, no murmur, no edema Gastrointestinal (Abdomen): protuberant but soft, no apparent fluid shift Results & Data Results & Data Vital Signs (Past 12 Hours) Vital Signs Temp Pulse Pulse Resp BP Pulse Ox O2 Del Method 02/21/25 07:19 95 H 02/21/25 04:07 37.1 C 91 H 20 103/64 95 Room Air 02/21/25 00:03 36.8 C 97 H 20 99/62 L 96 Room Air 02/20/25 22:52 100 H 02/20/25 19:57 36.6 C 95 H 20 97/57 L 94 Room Air Laboratory Results Short CBC 02/21/25 Range/Units 06:15 WBC 6.11 (4.8-10.8) K/ul Hgb 8.1 L (14.0-18.0) g/dl Hct 22.8 L (42.0-52.0) % Plt Count 74 L (130-400) K/uL BMP 02/21/25 06:15 Sodium 127 L Potassium 4.2 Chloride 96 L Carbon Dioxide 30 BUN 16 Creatinine 1.07 Glucose 96 Calcium 7.7 L (3) Lumbar compression fracture Encounter type: initial encounter Lumbar vertebra fracture level: unspecified lumbar vertebra Qualified Code(s): S32.000A - Wedge compression fracture of unspecified lumbar vertebra, initial encounter for closed fracture (10) Diabetes mellitus, type 2 Diabetes mellitus complication status: with other specified complication 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
--- NOTE | 2025-02-21 09:51 | Nephrology Progress Note ---
Date of Service February 21, 2025 Assessment & Plan Admission and Anticipated Discharge Date Admission Date: February 08, 2025 Subjective Assessment & Plan (1) Hyponatremia: Hyponatremia as expected In a patient with Cirrhosis. He was on diuretics before but not now. Lack of torsemide will cause some drop in na and will restart at 20 bid for now. Did restart home dose of ailyn.l 40 bid. even then low k of 3.1 so give extra 40 meq. Also add aldactone 25 bid. today k is better No urea ( he does not like it plus I dont like giving in Cirrhosis patient) continue torsemide 20 bid, Aldactone 25 bid and salt tab 1 gm bid. Lower kcl to 30 bid ( was on 40 bid pre adx) Continue FFR to 1500 ml with his Cirrhosis if we can keep Na 125+ it will be called success. has been able to keep it there na was 127 this AM so we are getting close to goal. (2) Lumbar compression fracture: Primary reason for admission (3) BERT (acute kidney injury): had Creat of 1..5 but since then normal currently. We need to monitor closely with higher dose of diuretics currently. S-- No new issues. has back pain. waiting for rehab placement Physical Exam Physical Exam: General Appearance:chronically ill appearing, no distress Neck: supple, Trachea midline Respiratory/Chest: Normal breath sounds, CTA, No accessory muscle use Cardiovascular: S1, S2, +murmur Abdomen/GI:Soft, nondistended, nontender Back+Brace Extremities/Musculoskeletal: no edema Neurologic/Psych:AAOX3, grossly no focal neurological deficits Skin: normal color, warm, + jaundice Results & Data Vital Signs (Past 12 Hours) Vital Signs Temp Pulse Pulse Resp BP Pulse Ox O2 Del Method 02/21/25 07:49 36.9 C 93 H 16 97/57 L 92 Room Air 02/21/25 07:19 95 H 02/21/25 04:07 37.1 C 91 H 20 103/64 95 Room Air 02/21/25 00:03 36.8 C 97 H 20 99/62 L 96 Room Air 02/20/25 22:52 100 H
[2025-02-21] MEDS: TROLAMINE SALICYLATE 10% CRM 255 APPLN/85 GM TUBE EXT SCH (17:03)
[2025-02-21] MEDS: PREGABALIN 50 MG CAP PO SCH (21:50)
[2025-02-21] MEDS: POTASSIUM CHLORIDE 10 MEQ TABCR PO SCH (21:50)
[2025-02-22 06:26] LABS: Hematocrit (blood only) 23.3 % (42.0-52.0); Hemoglobin 8.1 g/dl (14.0-18.0); Mean Corpuscular Hemoglobin 33.1 pg (25.0-34.0); Mean Corpuscular Hgb Conc 34.8 g/dL (32.0-36.0); Mean Corpuscular Volume 95.1 fL (80.0-100.0); Mean Platelet Volume 10.5 fL (9.4-12.4); Platelet Count 40 K/uL (130-400); RDW Coefficient of Variation 23.5 % (11.5-14.5); RDW Standard Deviation 80.8 fL (36.4-46.3); Red Blood Count 2.45 M/uL (4.70-6.10); White Blood Count 5.42 K/ul (4.8-10.8)
[2025-02-22 06:52] LABS: INR 1.9 (0.9-1.1); Prothrombin Time 19.4 Seconds (9.0-12.0)
[2025-02-22 07:23] LABS: Alanine Aminotransferase 108 U/L (7-52); Albumin Globulin Ratio 0.7 (0.9-2); Albumin Level 2.1 gm/dl (3.4-5.0); Alkaline Phosphatase 189 U/L (34-104); BUN Creatinine Ratio 17.2 (10-20); Bilirubin,Total 4.2 mg/dl (0.2-1.0); Blood Urea Nitrogen 17 mg/dl (6-23); Calcium 7.8 mg/dl (8.6-10.3); Carbon Dioxide 31 mmol/L (21-32); Chloride 93 mmol/L (98-107); Creatinine Clr Calc Pharmacy 95.1 ml/min; Globulin 3.1 gm/dl (2.5-4.0); Glucose 82 mg/dl (70-99(Fasting)); Phosphorus 3.9 mg/dl (2.5-4.9); Total Protein 5.2 gm/dl (6.0-8.3)
[2025-02-22 08:02] LABS: Magnesium 1.8 mg/dl (1.7-2.4); Potassium 4.3 mmol/L (3.5-5.1)
--- NOTE | 2025-02-22 13:11 | Hospitalist Progress Note ---
Date of Service February 22, 2025 Assessment & Plan (1) Generalized weakness: Plan: Mr. 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 Patient noted to have lumbar compression fracture, left proximal fibular fracture and acute on chronic hyponatremia. Hyponatremia more stable and pain controlled. Will need to await rad onc treatments prior to discharge to rehab. #Acute on chronic hyponatremia Sodium levels dropped to 123 Multifactorial, likely also iso cirrhotic patient Nephrology consulted Increased home salt tab to 1gm bid Reviewed nephro recommendations: goal is to keep NA 125 or greater Continue torsemide 20 bid and aldactone Fluid restrictions added to 1500 mL/day #Hypokalemia replace with KCL BID 30meq (lower than home 40meq) prn dosing to keep >4.0 follow bmp #Acute compression fracture of L1 and L2 #Mechanical Fall #Generalized weakness Fell from bed while turning around without any loss of consciousness --Lumbar CT:Acute compression fractures of the L1 and L2 vertebral bodies without posterior retropulsion. Otherwise no change. The patient orthopedic spine input Conservative management per Ortho Continue brace with activity Continue PT OT, fall precautions No lifting over 5 to 10 pounds Needs follow-up with orthopedics in 2 weeks on discharge Plan to discharge to rehab facility when accepted #Fracture of left proximal fibula--Subacute Suspected Maisonneuve injury Likely secondary to prior fall -Imaging:There is a subacute, unhealed, anatomically aligned fracture of the left fibular neck with developing callus. --Appreciate orthopedics input. Do not recommend any surgical intervention currently. No real restrictions for left lower extremity per Ortho Pain noted to be in calves, starting lyrica and topical agent prn will stop Lyrica given sodium down trend #Oral ulceration improving Looks like Aphthous Was given lidocaine viscus and things are improving Advised to switch and spit out to avoid nausea Denies any oral pain #Acute Kidney Injury*resolved Cr: 1.5>>0.97 Received gentle IV fluids Avoid nephrotoxic agents as able Renal function stable #Questionable pneumonia on chest x-ray #Acute to subacute left rib fractures--POA --Chest CT:Increased size of large left pleural effusion with complete collapse of the left lung. Nondisplaced acute to recent subacute lower left rib fractures. Otherwise as described. -- Continue incentive spirometry #Gonzales liver cirrhosis s.p TIPS #hepatocellular carcinoma/liver lesions Patient received embolization of the right lower lobe lesion in 07/2023 Repeat MRI in 01/2024 showed treatment cavity enhancement patient subsequently treated with TACE MRI on 11/14/2024 showed abnormalities in hepatic segment 7 and currently as per patient getting SBRT Radiation therapy per radiation oncology On lactulose and Xifaxan Continue midodrine 15 mg p.o. 3 times daily Patient is getting evaluated for liver transplant Monitor for volume overload, continue diuertics Rad Onc with planned treatments next week potentially T,W,Mon (will need Dexamethaxone 4mg 1 hour prior to each treatment) #Chronic thrombocytopenia 2/2 cirrhosis No acute bleeding issues Monitor platelet count Hemoglobin, platelet count stable #Moderate aortic stenosis Pulmonary hypertension Follow-up with cardiology #DM II Continue home Lantus Sliding scale monitor BGs #Anemia of chronic disease Hemoglobin 8.9 monitor #History of left hepatic hydrothorax Recent needed chest tube placement stable at this time #gout continue Allopurinol #BPH On Flomax Monitor for urinary retention #Hyperlipidemia On Lipitor DVT prophylaxis SCDs Re: Significant thrombocytopenia CODE STATUS Full code Disposition Rehab when accepted, Na level acceptable; will need to complete radiation treatments (2) Fracture of left proximal fibula: (3) Lumbar compression fracture: (4) BERT (acute kidney injury): (5) Recurrent falls while walking: (6) Hyponatremia: (7) Ascites: (8) Cirrhosis: (9) Thrombocytopenia: (10) Diabetes mellitus, type 2: Admission and Anticipated Discharge Date Admission Date: February 08, 2025 Subjective Reports improvement in pain with lyrica and myoflex addition Denies any new conerns at this time Physical Exam Constitutional: WD/WN, vitals as above Respiratory: normal respiratory effort, lungs clear to auscultation Cardiovascular: RRR, no murmur, no edema Gastrointestinal (Abdomen): protuberant but soft Results & Data Results & Data Vital Signs (Past 12 Hours) Vital Signs Temp Pulse Pulse Resp BP Pulse Ox O2 Del Method 02/22/25 11:29 36.6 C 95 H 18 96/58 L 95 Room Air 02/22/25 07:51 36.4 C L 90 18 95/56 L 94 Room Air 02/22/25 06:45 98 H 02/22/25 03:16 36.6 C 96 H 16 98/59 L 96 Room Air Laboratory Results Short CBC 02/22/25 Range/Units 06:02 WBC 5.42 (4.8-10.8) K/ul Hgb 8.1 L (14.0-18.0) g/dl Hct 23.3 L (42.0-52.0) % Plt Count 40 L (130-400) K/uL BMP 02/22/25 02/22/25 06:02 07:29 Sodium TNP 125 L Potassium TNP 4.3 Chloride 93 L Carbon Dioxide 31 BUN 17 Creatinine 0.99 Glucose 82 Calcium 7.8 L Liver Function 02/22/25 02/22/25 Range/Units 06:02 07:29 Total Bilirubin 4.2 H (0.2-1.0) mg/dl AST TNP 345 H ALT 108 H (7-52) U/L Alkaline Phosphatase 189 H (34-104) U/L Albumin 2.1 L (3.4-5.0) gm/dl Medications Administered Home Medications Medication Instructions Recorded Confirmed Last Taken allopurinol 300 mg tablet 300 mg PO DAILY 12/29/24 02/07/25 02/07/25 ascorbic acid (vitamin C) 1,000 mg 1 g PO DAILY 12/29/24 02/07/25 02/07/25 tablet atorvastatin 20 mg tablet 20 mg PO DAILY 12/29/24 02/07/25 02/07/25 insulin degludec 100 unit/mL (3 10 unit subcut DAILY 12/29/24 02/07/25 02/07/25 mL) subcutaneous pen lactulose 10 gram/15 mL oral 45 ml PO TID 12/29/24 02/07/25 02/07/25 13:00 solution magnesium chloride 64 mg 64 mg PO DAILY 12/29/24 02/07/25 02/07/25 (magnesium chloride) tablet,delayed release (Mag-Delay) multivitamin 1 tab PO DAILY 12/29/24 02/07/25 02/07/25 rifaximin 550 mg tablet (Xifaxan) 550 mg PO BID 12/29/24 02/07/25 02/07/25 08:00 sodium chloride 1,000 mg soluble 1,000 mg PO DAILY 12/29/24 02/07/25 02/07/25 tablet tamsulosin 0.4 mg capsule 0.4 mg PO DAILY 12/29/24 02/07/25 02/07/25 pantoprazole 40 mg tablet,delayed 40 mg PO BID #60 tabs 12/31/24 02/07/25 02/07/25 08:00 release Lactobacillus acidophilus 10 10,000 mmu cells PO BID 01/08/25 02/07/25 02/07/25 08:00 billion cell capsule (Probiotic) docusate sodium 100 mg capsule 100 mg PO BID 01/08/25 02/07/25 02/07/25 08:00 mupirocin 2 % topical ointment 1 applic topical TID PRN Skin 01/08/25 02/07/25 Unknown Irritation ciprofloxacin HCl 500 mg tablet 500 mg PO DAILY 02/07/25 02/07/25 02/07/25 midodrine 5 mg tablet 15 mg PO TID 02/07/25 02/07/25 02/07/25 13:00 potassium chloride 20 mEq 40 meq PO BID 02/07/25 02/07/25 02/07/25 08:00 tablet,extended release(part/cryst) spironolactone 50 mg tablet 50 mg PO DAILY 02/07/25 02/07/25 02/07/25 torsemide 10 mg tablet 10 mg PO DAILY 02/07/25 02/07/25 02/07/25 vitamin E (dl, acetate) 180 mg 180 mg PO DAILY 02/07/25 02/07/25 02/07/25 (400 unit) capsule Active Medications Generic Name Dose Route Start Last Admin Trade Name Freq PRN Reason Stop Dose Admin Allopurinol 300 mg 02/08/25 09:00 02/22/25 08:05 Allopurinol 300 Mg Tab PO 03/10/25 08:59 300 mg DAILY MOODY Administration Ascorbic Acid 1,000 mg 02/08/25 09:00 02/22/25 08:05 Ascorbic Acid 500 Mg Tab PO 03/10/25 08:59 1,000 mg DAILY MOODY Administration Atorvastatin Calcium 20 mg 02/08/25 09:00 02/22/25 08:05 Atorvastatin 20 Mg Tab PO 03/10/25 08:59 20 mg DAILY MOODY Administration Ciprofloxacin 500 mg 02/08/25 09:00 02/22/25 08:05 Ciprofloxacin 500 Mg Tab PO 03/10/25 08:59 500 mg DAILY MOODY Administration Protocol Docusate Sodium 100 mg 02/08/25 09:00 02/22/25 08:05 Docusate Sodium 100 Mg Cap PO 03/10/25 08:59 100 mg BID MOODY Administration Promethazine HCl 6.25 mg in 50.25 mls @ 201 mls/hr 02/15/25 22:31 02/19/25 21:11 Phenergan IV 03/17/25 22:30 Infused Q6H PRN Infusion Nausea And Vomiting Insulin Aspart 0 units 02/08/25 07:30 02/22/25 09:30 Insulin Aspart Per Unit Charge SC 03/10/25 07:29 Not Given ACHS [facility] Insulin Glargine 10 units 02/08/25 09:00 02/22/25 09:49 Lantus Per Unit Charge SQ 03/10/25 08:59 10 units DAILY MOODY Administration Lactobacillus Acidophilus 1,250 mg 02/08/25 09:00 02/22/25 08:05 Advanced Probiotic 625 Mg Capsule PO 03/10/25 08:59 1,250 mg BID MOODY Administration Lactulose 30 gm 02/08/25 09:00 02/22/25 08:05 Lactulose Syrup 30 Gm/45 Ml Udp PO 03/10/25 08:59 30 gm TID MOODY Administration Lidocaine HCl 15 ml 02/08/25 13:00 02/22/25 08:07 Lidocaine Viscous 2% 15 Ml Udc MT 03/10/25 12:59 Not Given QID MOODY Magnesium Chloride 64 mg 02/18/25 21:00 02/22/25 08:06 Magnesium Chloride W/Calcium 64mg Delayed Rel Tab PO 03/20/25 20:59 64 mg BID MOODY Administration Midodrine 15 mg 02/10/25 07:00 02/22/25 08:06 Midodrine Hcl 10 Mg Tab PO 03/12/25 06:59 15 mg TID@0700,1200,1700 MOODY Administration Multivitamins 1 tab 02/08/25 09:00 02/22/25 08:06 Multivitamin Tab PO 03/10/25 08:59 1 tab DAILY MOODY Administration Ondansetron HCl 4 mg 02/17/25 14:53 02/18/25 18:15 Ondansetron Inj 2 Mg/Ml 2 Ml Vial IV 03/19/25 14:52 4 mg Q6H PRN Administration Nausea And Vomiting Pantoprazole Sodium 40 mg 02/08/25 09:00 02/22/25 08:06 Pantoprazole 40 Mg Tab PO 03/10/25 08:59 40 mg BID MOODY Administration Potassium Chloride 30 meq 02/21/25 21:00 02/22/25 08:05 Potassium Chloride 10 Meq Tabcr PO 03/23/25 20:59 30 meq BID MOODY Administration Pregabalin 50 mg 02/21/25 21:00 02/22/25 08:05 Pregabalin 50 Mg Cap PO 03/23/25 20:59 50 mg BID MOODY Administration Rifaximin 550 mg 02/08/25 09:00 02/22/25 08:05 Rifaximin 550 Mg Tablet PO 03/10/25 08:59 550 mg BID MOODY Administration Tamsulosin HCl 0.4 mg 02/08/25 09:00 02/22/25 08:06 Tamsulosin Hcl 0.4 Mg Cap PO 03/10/25 08:59 0.4 mg DAILY MOODY Administration Torsemide 20 mg 02/17/25 10:15 02/22/25 08:05 Torsemide 20 Mg Tab PO 03/19/25 10:14 20 mg [id number] MOODY Administration Tramadol HCl 50 mg 02/15/25 18:38 02/21/25 11:30 Tramadol Hcl 50 Mg Tablet PO 03/10/25 03:54 50 mg Q4H PRN Administration Mod-Sev Pain (Scale 4-10) Trolamine Salicylate 1 appln 02/21/25 15:40 02/22/25 08:07 Trolamine Salicylate 10% Crm 255 Appln/85 Gm Tube EXT 03/23/25 15:39 1 appln BID MOODY Administration Vitamin E 180 mg 02/08/25 09:00 02/22/25 08:06 Tocopheryl, Dl-Alpha 400 Units 180 Mg Cap PO 03/10/25 08:59 180 mg DAILY MOODY Administration (3) Lumbar compression fracture Encounter type: initial encounter Lumbar vertebra fracture level: unspecified lumbar vertebra Qualified Code(s): S32.000A - Wedge compression fracture of unspecified lumbar vertebra, initial encounter for closed fracture (10) Diabetes mellitus, type 2 Diabetes mellitus terminal supervisor insulin use: with terminal supervisor use Diabetes mellitus complication status: with other specified complication Qualified Code(s): E11.69 - Type 2 diabetes mellitus with other specified complication; Z79.4 - custodial (current) use of insulin
--- NOTE | 2025-02-22 14:06 | Nephrology Progress Note ---
Date of Service February 22, 2025 Assessment & Plan (1) Hyponatremia: Plan: Hyponatremia as expected In a patient with Cirrhosis. He was on diuretics before but not now. - Continue torsemide 20 mg twice daily Continue home dose of ailyn.l 40 bid. No urea. Stop salt tabs and aldactone. BMP daily (2) Lumbar compression fracture: Plan: conservative management per primary team (3) BERT (acute kidney injury): Plan: had Creat of 1.5 but since then normal currently. monitor closely since restarting diuretics Plan time spent 62 mins. reviewed multiple recent admissions H and P and Discharge summary Admission and Anticipated Discharge Date Admission Date: February 08, 2025 Subjective seen for hyponatremia. He is eating. No nausea or vomiting. No shortness of breath. Review of Systems 2 Review of Systems: All other systems were reviewed and negative except as noted in HPI Physical Exam 2 Physical Exam: General exam: Appears comfortable, no acute distress HEENT: Pupils are equal and reactive to light Neck: No JVD, neck is supple trachea is midline Respiratory system: Clear breath sounds bilaterally. Gastrointestinal: Abdomen is soft, non distended, non tender, bowel sounds are present CVS: Regular rate and rhythm. No murmurs, rubs or gallops Musculoskeletal: No joint or muscle tenderness Extremities: Non tender, no edema, peripheral pulses are present Neuro: Oriented, no tremors, no focal neurological deficits Skin: No rashes Results & Data Vital Signs (Past 12 Hours) Vital Signs Temp Pulse Pulse Resp BP Pulse Ox O2 Del Method 02/22/25 11:29 36.6 C 95 H 18 96/58 L 95 Room Air 02/22/25 07:51 36.4 C L 90 18 95/56 L 94 Room Air 02/22/25 06:45 98 H 02/22/25 03:16 36.6 C 96 H 16 98/59 L 96 Room Air Laboratory Results 02/22/25 07:29 02/22/25 06:02 WBC 5.42 RBC 2.45 L MCV 95.1 MCH 33.1 MCHC 34.8 RDW Std Deviation 80.8 H RDW Coeff of Polo 23.5 H Plt Count 40 L MPV 10.5 Phosphorus 3.9 Albumin 2.1 L (2) Lumbar compression fracture Encounter type: initial encounter Lumbar vertebra fracture level: unspecified lumbar vertebra Qualified Code(s): S32.000A - Wedge compression fracture of unspecified lumbar vertebra, initial encounter for closed fracture
[2025-02-23 07:07] LABS: BUN Creatinine Ratio 16.8 (10-20); Calcium 7.8 mg/dl (8.6-10.3); Creatinine Clr Calc Pharmacy 93.2 ml/min; Potassium 4.1 mmol/L (3.5-5.1)
--- NOTE | 2025-02-23 08:51 | Hospitalist Progress Note ---
Date of Service February 23, 2025 Assessment & Plan (1) Generalized weakness: (2) Fracture of left proximal fibula: (3) Lumbar compression fracture: (4) BERT (acute kidney injury): (5) Recurrent falls while walking: (6) Hyponatremia: (7) Ascites: (8) Cirrhosis: (9) Thrombocytopenia: (10) Diabetes mellitus, type 2: Plan Mr. 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 Patient noted to have lumbar compression fracture, left proximal fibular fracture and acute on chronic hyponatremia. Hyponatremia more stable and pain controlled. Will need to await rad onc treatments prior to discharge to rehab. #Acute on chronic hyponatremia Sodium levels dropped to 123 Multifactorial, likely also iso cirrhotic patient Nephrology consulted nephro recommendations: goal is to keep NA 125 or greater Continue torsemide 20 bid Nephrology recs reviewed, discontinued aldactone and salt tabs Fluid restrictions added to 1500 mL/day #Hypokalemia replace with KCL BID 30meq (lower than home 40meq) prn dosing to keep >4.0 follow bmp #Acute compression fracture of L1 and L2 #Mechanical Fall #Generalized weakness Fell from bed while turning around without any loss of consciousness --Lumbar CT:Acute compression fractures of the L1 and L2 vertebral bodies without posterior retropulsion. Otherwise no change. The patient orthopedic spine input Conservative management per Ortho Continue brace with activity Continue PT OT, fall precautions No lifting over 5 to 10 pounds Needs follow-up with orthopedics in 2 weeks on discharge Plan to discharge to rehab facility when accepted #Fracture of left proximal fibula--Subacute Suspected Maisonneuve injury Likely secondary to prior fall -Imaging:There is a subacute, unhealed, anatomically aligned fracture of the left fibular neck with developing callus. --Appreciate orthopedics input. Do not recommend any surgical intervention currently. No real restrictions for left lower extremity per Ortho Pain noted to be in calves, improved with myoflex #Oral ulceration improving Looks like Aphthous, reports resolved #Acute Kidney Injury*resolved Cr: 1.5>>0.97 Received gentle IV fluids Avoid nephrotoxic agents as able Renal function stable #Questionable pneumonia on chest x-ray #Acute to subacute left rib fractures--POA --Chest CT:Increased size of large left pleural effusion with complete collapse of the left lung. Nondisplaced acute to recent subacute lower left rib fractures. Otherwise as described. -- Continue incentive spirometry #Gonzales liver cirrhosis s.p TIPS #hepatocellular carcinoma/liver lesions Patient received embolization of the right lower lobe lesion in 07/2023 Repeat MRI in 01/2024 showed treatment cavity enhancement patient subsequently treated with TACE MRI on 11/14/2024 showed abnormalities in hepatic segment 7 and currently as per patient getting SBRT Radiation therapy per radiation oncology On lactulose and Xifaxan Continue midodrine 15 mg p.o. 3 times daily Patient is getting evaluated for liver transplant Monitor for volume overload, continue diuertics Rad Onc with planned treatments next week potentially T,W,Mon (will need Dexamethaxone 4mg 1 hour prior to each treatment) #Chronic thrombocytopenia 2/2 cirrhosis No acute bleeding issues Monitor platelet count Hemoglobin, platelet count stable #Moderate aortic stenosis Pulmonary hypertension Follow-up with cardiology #DM II Continue home Lantus Sliding scale monitor BGs #Anemia of chronic disease Hemoglobin 8.9 monitor #History of left hepatic hydrothorax Recent needed chest tube placement stable at this time #gout continue Allopurinol #BPH On Flomax Monitor for urinary retention #Hyperlipidemia On Lipitor DVT prophylaxis SCDs Re: Significant thrombocytopenia CODE STATUS Full code Disposition Rehab when accepted, Na level acceptable; will need to complete radiation treatments Admission and Anticipated Discharge Date Admission Date: February 08, 2025 Subjective NAEO Reports calf discomfort in LLE much improved with myoflex Physical Exam Constitutional: WD/WN, vitals as above Respiratory: normal respiratory effort, lungs clear to auscultation Cardiovascular: RRR, no murmur, no edema Gastrointestinal (Abdomen): protuberant but soft Results & Data Results & Data Vital Signs (Past 12 Hours) Vital Signs Temp Pulse Resp BP Pulse Ox O2 Del Method 02/23/25 07:48 36.4 C L 86 16 112/65 94 Room Air 02/22/25 23:00 36.8 C 98 H 18 105/61 97 Room Air Laboratory Results [facility] 02/23/25 06:03 Sodium 127 L Potassium 4.1 Chloride 94 L Carbon Dioxide 30 BUN 17 Creatinine 1.01 Glucose 93 Calcium 7.8 L Medications Administered Home Medications Medication Instructions Recorded Confirmed Last Taken allopurinol 300 mg tablet 300 mg PO DAILY 12/29/24 02/07/25 02/07/25 ascorbic acid (vitamin C) 1,000 mg 1 g PO DAILY 12/29/24 02/07/25 02/07/25 tablet atorvastatin 20 mg tablet 20 mg PO DAILY 12/29/24 02/07/25 02/07/25 insulin degludec 100 unit/mL (3 10 unit subcut DAILY 12/29/24 02/07/25 02/07/25 mL) subcutaneous pen lactulose 10 gram/15 mL oral 45 ml PO TID 12/29/24 02/07/25 02/07/25 13:00 solution magnesium chloride 64 mg 64 mg PO DAILY 12/29/24 02/07/25 02/07/25 (magnesium chloride) tablet,delayed release (Mag-Delay) multivitamin 1 tab PO DAILY 12/29/24 02/07/25 02/07/25 rifaximin 550 mg tablet (Xifaxan) 550 mg PO BID 12/29/24 02/07/25 02/07/25 08:00 sodium chloride 1,000 mg soluble 1,000 mg PO DAILY 12/29/24 02/07/25 02/07/25 tablet tamsulosin 0.4 mg capsule 0.4 mg PO DAILY 12/29/24 02/07/25 02/07/25 pantoprazole 40 mg tablet,delayed 40 mg PO BID #60 tabs 12/31/24 02/07/25 02/07/25 08:00 release Lactobacillus acidophilus 10 10,000 mmu cells PO BID 01/08/25 02/07/25 02/07/25 08:00 billion cell capsule (Probiotic) docusate sodium 100 mg capsule 100 mg PO BID 01/08/25 02/07/25 02/07/25 08:00 mupirocin 2 % topical ointment 1 applic topical TID PRN Skin 01/08/25 02/07/25 Unknown Irritation ciprofloxacin HCl 500 mg tablet 500 mg PO DAILY 02/07/25 02/07/25 02/07/25 midodrine 5 mg tablet 15 mg PO TID 02/07/25 02/07/25 02/07/25 13:00 potassium chloride 20 mEq 40 meq PO BID 02/07/25 02/07/25 02/07/25 08:00 tablet,extended release(part/cryst) spironolactone 50 mg tablet 50 mg PO DAILY 02/07/25 02/07/25 02/07/25 torsemide 10 mg tablet 10 mg PO DAILY 02/07/25 02/07/25 02/07/25 vitamin E (dl, acetate) 180 mg 180 mg PO DAILY 02/07/25 02/07/25 02/07/25 (400 unit) capsule Active Medications Generic Name Dose Route Start Last Admin Trade Name Freq PRN Reason Stop Dose Admin Allopurinol 300 mg 02/08/25 09:00 02/23/25 08:35 Allopurinol 300 Mg Tab PO 03/10/25 08:59 300 mg DAILY MOODY Administration Ascorbic Acid 1,000 mg 02/08/25 09:00 02/23/25 08:34 Ascorbic Acid 500 Mg Tab PO 03/10/25 08:59 1,000 mg DAILY MOODY Administration Atorvastatin Calcium 20 mg 02/08/25 09:00 02/23/25 08:34 Atorvastatin 20 Mg Tab PO 03/10/25 08:59 20 mg DAILY MOODY Administration Ciprofloxacin 500 mg 02/08/25 09:00 02/23/25 08:34 Ciprofloxacin 500 Mg Tab PO 03/10/25 08:59 500 mg DAILY OMODY Administration Protocol Docusate Sodium 100 mg 02/08/25 09:00 02/23/25 08:44 Docusate Sodium 100 Mg Cap PO 03/10/25 08:59 100 mg BID MOODY Administration Promethazine HCl 6.25 mg in 50.25 mls @ 201 mls/hr 02/15/25 22:31 02/19/25 21:11 Phenergan IV 03/17/25 22:30 Infused Q6H PRN Infusion Nausea And Vomiting Insulin Aspart 0 units 02/08/25 07:30 02/23/25 08:44 Insulin Aspart Per Unit Charge SC 03/10/25 07:29 2 units ACHS MOODY Administration Insulin Glargine 10 units 02/08/25 09:00 02/23/25 08:45 Lantus Per Unit Charge SQ 03/10/25 08:59 10 units DAILY MOODY Administration Lactobacillus Acidophilus 1,250 mg 02/08/25 09:00 02/23/25 08:33 Advanced Probiotic 625 Mg Capsule PO 03/10/25 08:59 1,250 mg BID MOODY Administration Lactulose 30 gm 02/08/25 09:00 02/23/25 08:36 Lactulose Syrup 30 Gm/45 Ml Udp PO 03/10/25 08:59 30 gm TID MOODY Administration Lidocaine HCl 15 ml 02/08/25 13:00 02/22/25 20:37 Lidocaine Viscous 2% 15 Ml Udc MT 03/10/25 12:59 Not Given QID MOODY Magnesium Chloride 64 mg 02/18/25 21:00 02/23/25 08:33 Magnesium Chloride W/Calcium 64mg Delayed Rel Tab PO 03/20/25 20:59 64 mg BID MOODY Administration Midodrine 15 mg 02/10/25 07:00 02/23/25 05:59 Midodrine Hcl 10 Mg Tab PO 03/12/25 06:59 15 mg TID@0700,1200,1700 MOODY Administration Multivitamins 1 tab 02/08/25 09:00 02/23/25 08:34 Multivitamin Tab PO 03/10/25 08:59 1 tab DAILY MOODY Administration Ondansetron HCl 4 mg 02/17/25 14:53 02/18/25 18:15 Ondansetron Inj 2 Mg/Ml 2 Ml Vial IV 03/19/25 14:52 4 mg Q6H PRN Administration Nausea And Vomiting Pantoprazole Sodium 40 mg 02/08/25 09:00 02/23/25 08:34 Pantoprazole 40 Mg Tab PO 03/10/25 08:59 40 mg BID MOODY Administration Potassium Chloride 30 meq 02/21/25 21:00 02/22/25 20:35 Potassium Chloride 10 Meq Tabcr PO 03/23/25 20:59 30 meq BID MOODY Administration Rifaximin 550 mg 02/08/25 09:00 02/23/25 08:34 Rifaximin 550 Mg Tablet PO 03/10/25 08:59 550 mg BID MOODY Administration Tamsulosin HCl 0.4 mg 02/08/25 09:00 02/23/25 08:34 Tamsulosin Hcl 0.4 Mg Cap PO 03/10/25 08:59 0.4 mg DAILY MOODY Administration Torsemide 20 mg 02/17/25 10:15 02/23/25 08:35 Torsemide 20 Mg Tab PO 03/19/25 10:14 20 mg [id number] MOODY Administration Tramadol HCl 50 mg 02/15/25 18:38 02/21/25 11:30 Tramadol Hcl 50 Mg Tablet PO 03/10/25 03:54 50 mg Q4H PRN Administration Mod-Sev Pain (Scale 4-10) Trolamine Salicylate 1 appln 02/21/25 15:40 02/22/25 20:37 Trolamine Salicylate 10% Crm 255 Appln/85 Gm Tube EXT 03/23/25 15:39 1 appln BID MOODY Administration Vitamin E 180 mg 02/08/25 09:00 02/23/25 08:34 Tocopheryl, Dl-Alpha 400 Units 180 Mg Cap PO 03/10/25 08:59 180 mg DAILY MOODY Administration (3) Lumbar compression fracture Encounter type: initial encounter Lumbar vertebra fracture level: unspecified lumbar vertebra Qualified Code(s): S32.000A - Wedge compression fracture of unspecified lumbar vertebra, initial encounter for closed fracture (10) Diabetes mellitus, type 2 Diabetes mellitus complication status: with other specified complication Diabetes mellitus shelter insulin use: with termite control technician use Qualified Code(s): E11.69 - Type 2 diabetes mellitus with other specified complication; Z79.4 - shelter (current) use of insulin
--- NOTE | 2025-02-23 13:53 | Nephrology Progress Note ---
Date of Service February 23, 2025 Assessment & Plan (1) Hyponatremia: Plan: Hyponatremia as expected In a patient with Cirrhosis. He was on diuretics before but not now. - Continue torsemide 20 mg twice daily Continue home dose of ailyn.l 40 bid. No urea. Stopped salt tabs and aldactone. BMP daily (2) Lumbar compression fracture: Plan: conservative management per primary team (3) BERT (acute kidney injury): Plan: had Creat of 1.5 but stable now at 1. monitor closely since restarting diuretics Admission and Anticipated Discharge Date Admission Date: February 08, 2025 Subjective seen for hyponatremia. He feels better. No diarrhea or vomiting. He is making urine. Sodium slightly up trending Review of Systems 2 Review of Systems: All other systems were reviewed and negative except as noted in HPI Physical Exam 2 Physical Exam: General exam: Appears comfortable, no acute distress HEENT: Pupils are equal and reactive to light Neck: No JVD, neck is supple trachea is midline Respiratory system: Clear breath sounds bilaterally. Gastrointestinal: Abdomen is soft, non distended, non tender, bowel sounds are present CVS: Regular rate and rhythm. No murmurs, rubs or gallops Musculoskeletal: No joint or muscle tenderness Extremities: Non tender, no edema, peripheral pulses are present Neuro: Oriented, no tremors, no focal neurological deficits Skin: No rashes Results & Data Vital Signs (Past 12 Hours) Vital Signs Temp Pulse Resp BP Pulse Ox O2 Del Method 02/23/25 07:48 36.4 C L 86 16 112/65 94 Room Air Laboratory Results 02/23/25 06:03 (2) Lumbar compression fracture Encounter type: initial encounter Lumbar vertebra fracture level: unspecified lumbar vertebra Qualified Code(s): S32.000A - Wedge compression fracture of unspecified lumbar vertebra, initial encounter for closed fracture
[2025-02-24] MEDS: dexAMETHasone 4 MG TAB PO ONE (09:15)
--- NOTE | 2025-02-24 10:00 | Hospitalist Progress Note ---
Date of Service February 24, 2025 Assessment & Plan (1) Generalized weakness: (2) Fracture of left proximal fibula: (3) Lumbar compression fracture: (4) BERT (acute kidney injury): (5) Recurrent falls while walking: (6) Hyponatremia: (7) Ascites: (8) Cirrhosis: (9) Thrombocytopenia: (10) Diabetes mellitus, type 2: Plan Mr. 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 Patient noted to have lumbar compression fracture, left proximal fibular fracture and acute on chronic hyponatremia. Hyponatremia more stable and pain controlled. Will need to await rad onc treatments prior to discharge to rehab. #Acute on chronic hyponatremia Sodium levels dropped to 123 Multifactorial, likely also iso cirrhotic patient Nephrology consulted nephro recommendations: goal is to keep NA 125 or greater Continue torsemide 20 bid Nephrology recs reviewed, discontinued aldactone and salt tabs Fluid restrictions added to 1500 mL/day Nephrology recs reviewed: - avoid urea, salt tabs >> not well tolerated and not appropriate for his hypervolemic hyponatremia. -> will resume aldactone possibly tomorrow -> encourage 50g protein #Hypokalemia replace with KCL BID 30meq (lower than home 40meq) prn dosing to keep >4.0 follow bmp #Acute compression fracture of L1 and L2 #Mechanical Fall #Generalized weakness Fell from bed while turning around without any loss of consciousness --Lumbar CT:Acute compression fractures of the L1 and L2 vertebral bodies without posterior retropulsion. Otherwise no change. The patient orthopedic spine input Conservative management per Ortho Continue brace with activity Continue PT OT, fall precautions No lifting over 5 to 10 pounds Needs follow-up with orthopedics in 2 weeks on discharge Plan to discharge to rehab facility when accepted #Fracture of left proximal fibula--Subacute Suspected Maisonneuve injury Likely secondary to prior fall -Imaging:There is a subacute, unhealed, anatomically aligned fracture of the left fibular neck with developing callus. --Appreciate orthopedics input. Do not recommend any surgical intervention currently. No real restrictions for left lower extremity per Ortho Pain noted to be in calves, improved with myoflex #Oral ulceration improving Looks like Aphthous, reports resolved #Acute Kidney Injury*resolved Cr: 1.5>>0.97 Received gentle IV fluids Avoid nephrotoxic agents as able Renal function stable #Questionable pneumonia on chest x-ray #Acute to subacute left rib fractures--POA --Chest CT:Increased size of large left pleural effusion with complete collapse of the left lung. Nondisplaced acute to recent subacute lower left rib fractures. Otherwise as described. -- Continue incentive spirometry #Gonzales liver cirrhosis s.p TIPS #hepatocellular carcinoma/liver lesions Patient received embolization of the right lower lobe lesion in 07/2023 Repeat MRI in 01/2024 showed treatment cavity enhancement patient subsequently treated with TACE MRI on 11/14/2024 showed abnormalities in hepatic segment 7 and currently as per patient getting SBRT Radiation therapy per radiation oncology On lactulose and Xifaxan Continue midodrine 15 mg p.o. 3 times daily Patient is getting evaluated for liver transplant Monitor for volume overload, continue diuertics Rad Onc with planned treatments next week potentially T,W,Mon (will need Dexamethaxone 4mg 1 hour prior to each treatment) #Chronic thrombocytopenia 2/2 cirrhosis No acute bleeding issues Monitor platelet count Hemoglobin, platelet count stable #Moderate aortic stenosis Pulmonary hypertension Follow-up with cardiology #DM II Continue home Lantus Sliding scale monitor BGs #Anemia of chronic disease Hemoglobin 8.9 monitor #History of left hepatic hydrothorax Recent needed chest tube placement stable at this time #gout continue Allopurinol #BPH On Flomax Monitor for urinary retention #Hyperlipidemia On Lipitor DVT prophylaxis SCDs Re: Significant thrombocytopenia CODE STATUS Full code Disposition Rehab when accepted, Na level acceptable; will need to complete radiation treatments Admission and Anticipated Discharge Date Admission Date: February 08, 2025 Subjective NAEO Reports intermittent cramping in LLE, but still better than other day, however myoflex doesnt feel as effective as it did previously Physical Exam Constitutional: WD/WN, vitals as above Respiratory: normal respiratory effort, lungs clear to auscultation Cardiovascular: RRR, no murmur, no edema Gastrointestinal (Abdomen): protuberant and soft Results & Data Results & Data Vital Signs (Past 12 Hours) Vital Signs Temp Pulse Resp BP Pulse Ox O2 Del Method 02/24/25 07:40 37.1 C 91 H 20 100/51 L 95 Room Air 02/23/25 22:59 36.7 C 101 H 18 103/62 94 Room Air (3) Lumbar compression fracture Encounter type: initial encounter Lumbar vertebra fracture level: unspecified lumbar vertebra Qualified Code(s): S32.000A - Wedge compression fracture of unspecified lumbar vertebra, initial encounter for closed fracture (10) Diabetes mellitus, type 2 Diabetes mellitus complication status: with other specified complication 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
--- NOTE | 2025-02-24 10:06 | Nephrology Progress Note ---
Date of Service February 24, 2025 Assessment & Plan (1) Hyponatremia: Plan: Hypervolemic hyponatremia as expected In a patient with liver Cirrhosis, liver carcinoma. He was on diuretics in the past but not on admission. na 127 as of 02/23 and essentially plateu'd since 02/17. - Continue torsemide 20 mg twice daily - maintain eukalemia; Continue home dose of ailyn.l 40 bid. - avoid urea, salt tabs >> not well tolerated and not appropriate for his hypervolemic hyponatremia. -> will resume aldactone possibly tomorrow >>he is intolerant of urea and of protein shakes > asked dietary to eval for target 50 gm daily protein intake - BMP daily -control pain w/o NSAIDS -FR and sodium limits need to continue Care coordinated w/ Dr Donahue via TText re meds, dietary eval, fluid limit; we are in agreeemnt (2) Lumbar compression fracture: Plan: conservative management per primary team (3) BERT (acute kidney injury): Plan: had Creat of 1.5 on 02/07 but since 02/12 stable in range of 0.8-1. - monitor closely since restarting diuretics > slight uptick to 1.1 today -continue max dose midodrine d/t hypotension Admission and Anticipated Discharge Date Admission Date: February 08, 2025 Subjective no interval events. c/o severe thirst; no sob, no worsenign edema. can't tolerate urea, prot shakes. Review of Systems 2 Review of Systems: All systems reviewed & are unremarkable except as noted in Subjective Physical Exam 2 Constitutional: well developed (sitting up in chair on RA) and well nourished; no acute distress Eyes: EOM intact bilaterally ENMT: Mouth: + dry oral mucous membranes Neck: no nuchal rigidity Respiratory: normal respiratory effort Auscultation: + diminished lung sounds Cardiovascular: Rate/Rhythm: regular rate and regular rhythm Heart Sounds: + murmur Extremities: + edema (2+ proximal) Gastrointestinal (Abdomen): Inspection/Auscultation: + abdomen distended and normal bowel sounds Percussion/Palpation: abdomen soft and + fluid wave; abdomen nontender Musculoskeletal: Extremities: strength 5/5 throughout Skin: no rashes, warm and dry Neurologic: bradford, fluent speech, no tremor Results & Data Vital Signs (Past 12 Hours) Vital Signs Temp Pulse Resp BP Pulse Ox O2 Del Method 02/24/25 07:40 37.1 C 91 H 20 100/51 L 95 Room Air 02/23/25 22:59 36.7 C 101 H 18 103/62 94 Room Air Laboratory Results 02/24 labs scheduled for 10 AM 02/22/25 06:02 02/24/25 10:48 (2) Lumbar compression fracture Encounter type: initial encounter Lumbar vertebra fracture level: unspecified lumbar vertebra Qualified Code(s): S32.000A - Wedge compression fracture of unspecified lumbar vertebra, initial encounter for closed fracture
[2025-02-24] MEDS: LIDOCAINE 5% 1 PATCH TD SCH (10:45)
[2025-02-24 11:43] LABS: Albumin Level 1.9 gm/dl (3.4-5.0); BUN Creatinine Ratio 14.7 (10-20); Bilirubin Direct 1.6 mg/dl (0-0.2); Bilirubin,Total 4.2 mg/dl (0.2-1.0); Creatinine Clr Calc Pharmacy 86.4 ml/min; Total Protein 5.4 gm/dl (6.0-8.3)
[2025-02-25 09:53] LABS: Calcium 7.9 mg/dl (8.6-10.3); Potassium 4.5 mmol/L (3.5-5.1)
[2025-02-25 09:58] LABS: BUN Creatinine Ratio 18.2 (10-20); Creatinine Clr Calc Pharmacy 85.6 ml/min
--- NOTE | 2025-02-25 10:45 | Hospitalist Progress Note ---
Date of Service February 25, 2025 Assessment & Plan (1) Generalized weakness: (2) Fracture of left proximal fibula: (3) Lumbar compression fracture: (4) BERT (acute kidney injury): (5) Recurrent falls while walking: (6) Hyponatremia: (7) Ascites: (8) Cirrhosis: (9) Thrombocytopenia: (10) Diabetes mellitus, type 2: Plan Mr. 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 Patient noted to have lumbar compression fracture, left proximal fibular fracture and acute on chronic hyponatremia. Hyponatremia more stable and pain controlled. Will need to await rad onc treatments prior to discharge to rehab. #Acute on chronic hyponatremia Sodium levels dropped to 123 Multifactorial, likely also iso cirrhotic patient Nephrology consulted nephro recommendations: goal is to keep NA 125 or greater Continue torsemide 20 bid Nephrology recs reviewed, discontinued aldactone and salt tabs Fluid restrictions added to 1500 mL/day Nephrology recs reviewed: - avoid urea, salt tabs >> not well tolerated, not appropriate for his hypervolemic hyponatremia. - encourage 50g protein - Continue daily bmp #Hypokalemia reduced KCL from 30meq BID to 20meq BID prn dosing to keep >4.0 follow bmp #Acute compression fracture of L1 and L2 #Mechanical Fall #Generalized weakness Fell from bed while turning around without any loss of consciousness --Lumbar CT:Acute compression fractures of the L1 and L2 vertebral bodies without posterior retropulsion. Otherwise no change. Conservative management:Continue brace with activity; No lifting over 5 to 10 pounds Needs follow-up with orthopedics in 2 weeks on discharge Plan to discharge to rehab facility when completed rad/onc tx #Fracture of left proximal fibula--Subacute Suspected Maisonneuve injury Likely secondary to prior fall -Imaging:There is a subacute, unhealed, anatomically aligned fracture of the left fibular neck with developing callus. --Appreciate orthopedics input. Do not recommend any surgical intervention currently. No real restrictions for left lower extremity per Ortho Pain noted to be in calves, improved with myoflex and lidocaine patches #Oral ulceration improving Looks like Aphthous, reports resolved #Acute Kidney Injury*resolved Cr: 1.5>>0.97 Received gentle IV fluids Avoid nephrotoxic agents as able Renal function stable #Questionable pneumonia on chest x-ray #Acute to subacute left rib fractures--POA --Chest CT:Increased size of large left pleural effusion with complete collapse of the left lung. Nondisplaced acute to recent subacute lower left rib fractures. Otherwise as described. -- Continue incentive spirometry #Gonzales liver cirrhosis s.p TIPS #hepatocellular carcinoma/liver lesions Patient received embolization of the right lower lobe lesion in 07/2023 Repeat MRI in 01/2024 showed treatment cavity enhancement patient subsequently treated with TACE MRI on 11/14/2024 showed abnormalities in hepatic segment 7 and currently as per patient getting SBRT Radiation therapy per radiation oncology On lactulose and Xifaxan Continue midodrine 15 mg p.o. 3 times daily Patient is getting evaluated for liver transplant Monitor for volume overload, continue diuertics Rad Onc with planned treatments next week potentially T,W,Mon (will need Dexamethaxone 4mg 1 hour prior to each treatment) #Chronic thrombocytopenia 2/2 cirrhosis No acute bleeding issues Monitor platelet count Hemoglobin, platelet count stable #Moderate aortic stenosis Pulmonary hypertension Follow-up with cardiology #DM II Continue home Lantus Sliding scale monitor BGs #Anemia of chronic disease Hemoglobin 8.9 monitor #History of left hepatic hydrothorax Recent needed chest tube placement stable at this time #gout continue Allopurinol #BPH On Flomax Monitor for urinary retention #Hyperlipidemia On Lipitor DVT prophylaxis SCDs Re: Significant thrombocytopenia CODE STATUS Full code Disposition Rehab when accepted, Na level acceptable; will need to complete radiation treatments, likely Monday Admission and Anticipated Discharge Date Admission Date: February 08, 2025 Subjective NAEO reports feeling well and thinks the lidocaine patches have been helpful Plan for radiation this afternoon Physical Exam Constitutional: WD/WN, vitals as above Respiratory: normal respiratory effort, lungs clear to auscultation Cardiovascular: RRR, no murmur, no edema Results & Data Results & Data Vital Signs (Past 12 Hours) Vital Signs Temp Pulse Resp BP BP Pulse Ox O2 Del Method 02/25/25 06:56 36.8 C 91 H 18 104/60 94 Room Air 02/25/25 02:40 37.0 C 93 H 17 102/61 94 Room Air 02/25/25 00:21 36.8 C 97 H 20 98/50 L 93 Room Air 02/24/25 23:20 Room Air Laboratory Results [facility] 02/24/25 02/25/25 10:48 09:13 Sodium 126 L 127 L Potassium 4.0 4.5 Chloride 94 L 96 L Carbon Dioxide 30 27 BUN 16 20 Creatinine 1.09 1.10 Glucose 152 H 256 H Calcium 8.0 L 7.9 L Liver Function 02/24/25 Range/Units 10:48 Total Bilirubin 4.2 H (0.2-1.0) mg/dl Direct Bilirubin 1.6 H (0-0.2) mg/dl AST 263 H (13-39) U/L ALT 99 H (7-52) U/L Alkaline Phosphatase 191 H (34-104) U/L Albumin 1.9 L (3.4-5.0) gm/dl Medications Administered Home Medications Medication Instructions Recorded Confirmed Last Taken allopurinol 300 mg tablet 300 mg PO DAILY 12/29/24 02/07/25 02/07/25 ascorbic acid (vitamin C) 1,000 mg 1 g PO DAILY 12/29/24 02/07/25 02/07/25 tablet atorvastatin 20 mg tablet 20 mg PO DAILY 12/29/24 02/07/25 02/07/25 insulin degludec 100 unit/mL (3 10 unit subcut DAILY 12/29/24 02/07/25 02/07/25 mL) subcutaneous pen lactulose 10 gram/15 mL oral 45 ml PO TID 12/29/24 02/07/25 02/07/25 13:00 solution magnesium chloride 64 mg 64 mg PO DAILY 12/29/24 02/07/25 02/07/25 (magnesium chloride) tablet,delayed release (Mag-Delay) multivitamin 1 tab PO DAILY 12/29/24 02/07/25 02/07/25 rifaximin 550 mg tablet (Xifaxan) 550 mg PO BID 12/29/24 02/07/25 02/07/25 08:00 sodium chloride 1,000 mg soluble 1,000 mg PO DAILY 12/29/24 02/07/25 02/07/25 tablet tamsulosin 0.4 mg capsule 0.4 mg PO DAILY 12/29/24 02/07/25 02/07/25 pantoprazole 40 mg tablet,delayed 40 mg PO BID #60 tabs 12/31/24 02/07/25 02/07/25 08:00 release Lactobacillus acidophilus 10 10,000 mmu cells PO BID 01/08/25 02/07/25 02/07/25 08:00 billion cell capsule (Probiotic) docusate sodium 100 mg capsule 100 mg PO BID 01/08/25 02/07/25 02/07/25 08:00 mupirocin 2 % topical ointment 1 applic topical TID PRN Skin 01/08/25 02/07/25 Unknown Irritation ciprofloxacin HCl 500 mg tablet 500 mg PO DAILY 02/07/25 02/07/25 02/07/25 midodrine 5 mg tablet 15 mg PO TID 02/07/25 02/07/25 02/07/25 13:00 potassium chloride 20 mEq 40 meq PO BID 02/07/25 02/07/25 02/07/25 08:00 tablet,extended release(part/cryst) spironolactone 50 mg tablet 50 mg PO DAILY 02/07/25 02/07/25 02/07/25 torsemide 10 mg tablet 10 mg PO DAILY 02/07/25 02/07/25 02/07/25 vitamin E (dl, acetate) 180 mg 180 mg PO DAILY 02/07/25 02/07/25 02/07/25 (400 unit) capsule Active Medications Generic Name Dose Route Start Last Admin Trade Name Freq PRN Reason Stop Dose Admin Allopurinol 300 mg 02/08/25 09:00 02/25/25 09:49 Allopurinol 300 Mg Tab PO 03/10/25 08:59 300 mg DAILY MOODY Administration Ascorbic Acid 1,000 mg 02/08/25 09:00 02/25/25 09:49 Ascorbic Acid 500 Mg Tab PO 03/10/25 08:59 1,000 mg DAILY MOODY Administration Atorvastatin Calcium 20 mg 02/08/25 09:00 02/25/25 09:49 Atorvastatin 20 Mg Tab PO 03/10/25 08:59 20 mg DAILY MOODY Administration Ciprofloxacin 500 mg 02/08/25 09:00 02/25/25 09:49 Ciprofloxacin 500 Mg Tab PO 03/10/25 08:59 500 mg DAILY MOODY Administration Protocol Docusate Sodium 100 mg 02/08/25 09:00 02/25/25 09:56 Docusate Sodium 100 Mg Cap PO 03/10/25 08:59 100 mg BID MOODY Administration Promethazine HCl 6.25 mg in 50.25 mls @ 201 mls/hr 02/15/25 22:31 02/19/25 21:11 Phenergan IV 03/17/25 22:30 Infused Q6H PRN Infusion Nausea And Vomiting Insulin Aspart 0 units 02/08/25 07:30 02/25/25 09:57 Insulin Aspart Per Unit Charge SC 03/10/25 07:29 6 units ACHS MOODY Administration Insulin Glargine 10 units 02/08/25 09:00 02/25/25 09:57 Lantus Per Unit Charge SQ 03/10/25 08:59 10 units DAILY MOODY Administration Lactobacillus Acidophilus 1,250 mg 02/08/25 09:00 02/25/25 09:49 Advanced Probiotic 625 Mg Capsule PO 03/10/25 08:59 1,250 mg BID MOODY Administration Lactulose 30 gm 02/08/25 09:00 02/25/25 09:47 Lactulose Syrup 30 Gm/45 Ml Udp PO 03/10/25 08:59 30 gm TID MOODY Administration Lidocaine 1 patch 02/24/25 10:15 02/25/25 09:48 Lidocaine 5% 1 Patch TD 03/26/25 10:14 1 patch QAM MOODY Administration Lidocaine HCl 15 ml 02/08/25 13:00 02/25/25 09:57 Lidocaine Viscous 2% 15 Ml Udc MT 03/10/25 12:59 Not Given QID MOODY Magnesium Chloride 64 mg 02/18/25 21:00 02/25/25 09:49 Magnesium Chloride W/Calcium 64mg Delayed Rel Tab PO 03/20/25 20:59 64 mg BID MOODY Administration Midodrine 15 mg 02/10/25 07:00 02/25/25 06:28 Midodrine Hcl 10 Mg Tab PO 03/12/25 06:59 15 mg TID@0700,1200,1700 MOODY Administration Miscellaneous 1 each 02/24/25 21:00 02/24/25 21:37 Remove Lidoderm Patch N/A 03/26/25 20:59 1 each DAILY@2100 MOODY Administration Multivitamins 1 tab 02/08/25 09:00 02/25/25 09:48 Multivitamin Tab PO 03/10/25 08:59 1 tab DAILY MOODY Administration Ondansetron HCl 4 mg 02/17/25 14:53 02/23/25 23:26 Ondansetron Inj 2 Mg/Ml 2 Ml Vial IV 03/19/25 14:52 4 mg Q6H PRN Administration Nausea And Vomiting Pantoprazole Sodium 40 mg 02/08/25 09:00 02/25/25 09:49 Pantoprazole 40 Mg Tab PO 03/10/25 08:59 40 mg BID MOODY Administration Potassium Chloride 30 meq 02/21/25 21:00 02/25/25 09:56 Potassium Chloride 10 Meq Tabcr PO 03/23/25 20:59 30 meq BID MOODY Administration Rifaximin 550 mg 02/08/25 09:00 02/25/25 09:49 Rifaximin 550 Mg Tablet PO 03/10/25 08:59 550 mg BID MOODY Administration Tamsulosin HCl 0.4 mg 02/08/25 09:00 02/25/25 09:48 Tamsulosin Hcl 0.4 Mg Cap PO 03/10/25 08:59 0.4 mg DAILY MOODY Administration Torsemide 20 mg 02/17/25 10:15 02/25/25 09:49 Torsemide 20 Mg Tab PO 03/19/25 10:14 20 mg [id number] MOODY Administration Tramadol HCl 50 mg 02/15/25 18:38 02/24/25 11:59 Tramadol Hcl 50 Mg Tablet PO 03/10/25 03:54 50 mg Q4H PRN Administration Mod-Sev Pain (Scale 4-10) Trolamine Salicylate 1 appln 02/21/25 15:40 02/25/25 09:48 Trolamine Salicylate 10% Crm 255 Appln/85 Gm Tube EXT 03/23/25 15:39 1 appln BID MOODY Administration Vitamin E 180 mg 02/08/25 09:00 02/25/25 09:49 Tocopheryl, Dl-Alpha 400 Units 180 Mg Cap PO 03/10/25 08:59 180 mg DAILY MOODY Administration (3) Lumbar compression fracture Encounter type: initial encounter Lumbar vertebra fracture level: unspecified lumbar vertebra Qualified Code(s): S32.000A - Wedge compression fracture of unspecified lumbar vertebra, initial encounter for closed fracture (10) Diabetes mellitus, type 2 Diabetes mellitus complication status: with other specified complication 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
--- NOTE | 2025-02-25 12:26 | Nephrology Progress Note ---
Date of Service February 25, 2025 Assessment & Plan (1) Hyponatremia: Plan: Hypervolemic hyponatremia as expected In a patient with liver Cirrhosis, liver carcinoma. He was on diuretics in the past but not on admission. na 127 as of 02/23 and essentially plateu'd since 02/17. with his liver disease, unlikely ever to achieve normal sodium in serum -> cont 20 mg bid torsemide - maintain eukalemia; Continue home dose of ailyn.l 40 bid. - avoid urea, salt tabs >> not well tolerated and not appropriate for his hypervolemic hyponatremia. -> will resume aldactone possibly tomorrow >>he is intolerant of urea and of protein shakes > asked dietary to eval for target 50 gm daily protein intake; challenging w/ po preferences - BMP daily -control pain w/o NSAIDS -FR and sodium limits need to continue (2) Lumbar compression fracture: Plan: conservative management per primary team (3) BERT (acute kidney injury): Plan: had Creat of 1.5 on 02/07 but since 02/12 stable in range of 0.8-1. - monitor closely since restarting diuretics > slight uptick to 1.1 today -continue max dose midodrine d/t hypotension Admission and Anticipated Discharge Date Admission Date: February 08, 2025 Subjective sitting up in chair; for XRT today; feeling well; eating well; still very thirsty and w/ severe dry mouth Review of Systems 2 Review of Systems: All systems reviewed & are unremarkable except as noted in Subjective Physical Exam 2 Constitutional: well developed (sitting up in chair on RA, chatty) and well nourished; no acute distress Eyes: EOM intact bilaterally ENMT: Mouth: + dry oral mucous membranes Neck: no nuchal rigidity Respiratory: normal respiratory effort Auscultation: + diminished lung sounds Cardiovascular: Rate/Rhythm: regular rate and regular rhythm Heart Sounds: + murmur Extremities: + edema (2+ proximal) Gastrointestinal (Abdomen): Inspection/Auscultation: + abdomen distended and normal bowel sounds Percussion/Palpation: abdomen soft and + fluid wave; abdomen nontender Musculoskeletal: Extremities: strength 5/5 throughout Skin: no rashes, warm and dry Psychiatric: Orientation: alert and oriented x 3 Results & Data Vital Signs (Past 12 Hours) Vital Signs Temp Pulse Resp BP Pulse Ox O2 Del Method 02/25/25 06:56 36.8 C 91 H 18 104/60 94 Room Air 02/25/25 02:40 37.0 C 93 H 17 102/61 94 Room Air Laboratory Results 02/22/25 06:02 02/25/25 09:13 (2) Lumbar compression fracture Encounter type: initial encounter Lumbar vertebra fracture level: unspecified lumbar vertebra Qualified Code(s): S32.000A - Wedge compression fracture of unspecified lumbar vertebra, initial encounter for closed fracture
[2025-02-25] MEDS: dexAMETHasone 4 MG TAB PO ONE (13:44)
[2025-02-25] MEDS: LACTULOSE SYRUP 20 GM/30 ML UDC PO ONE (18:12)
[2025-02-25 18:40] LABS: Albumin Globulin Ratio 0.6 (0.9-2); Albumin Level 2.1 gm/dl (3.4-5.0); BUN Creatinine Ratio 17.1 (10-20); Calcium 8.2 mg/dl (8.6-10.3); Creatinine Clr Calc Pharmacy 84.8 ml/min; Globulin 3.7 gm/dl (2.5-4.0); Potassium 4.5 mmol/L (3.5-5.1); Total Protein 5.8 gm/dl (6.0-8.3)
[2025-02-25] MEDS: LACTULOSE SYRUP 30 GM/45 ML UDP PO SCH (20:05)
[2025-02-25] MEDS: POTASSIUM CHLORIDE 10 MEQ TABCR PO SCH (20:06)
[2025-02-25] MEDS ORDERED: LACTULOSE SYRUP 30 GM/45 ML UDP PO SCH ×2 (21:00)
--- NOTE | 2025-02-26 09:21 | Nephrology Progress Note ---
Date of Service February 26, 2025 Assessment & Plan (1) Hyponatremia: Plan: Hypervolemic hyponatremia as expected In a patient with liver Cirrhosis, liver carcinoma. He was on diuretics in the past but not on admission. na 127 as of 02/23 and essentially plateu'd since 02/17 though possible uptrend now w/ value 131 today. with his liver disease, unlikely ever to achieve normal sodium in serum -> cont 20 mg bid torsemide - maintain eukalemia; Continue KCl 20 mEq bid. - avoid urea, salt tabs >> not well tolerated and not appropriate for his hypervolemic hyponatremia. -> will resume aldactone possibly tomorrow >>he is intolerant of urea and of protein shakes > asked dietary to eval for target 50 gm daily protein intake; challenging w/ po preferences - BMP daily -control pain w/o NSAIDS -FR and sodium limits need to continue; have repeatedly reiterated this w/ him (2) Lumbar compression fracture: Plan: conservative management per primary team (3) BERT (acute kidney injury): Plan: had Creat of 1.5 on 02/07 but since 02/12 stable in range of 0.8-1. - monitor closely since restarting diuretics > plateaud after slight uptick at 1.1 today -continue max dose midodrine d/t hypotension Admission and Anticipated Discharge Date Admission Date: February 08, 2025 Subjective unable to do treatment this am per pt d/t needing rescan; c/o ongoing thirst; Review of Systems 2 Review of Systems: All systems reviewed & are unremarkable except as noted in Subjective Physical Exam 2 Constitutional: well developed (resting in bed on RA, chatty) and well nourished; no acute distress Eyes: EOM intact bilaterally ENMT: Mouth: + dry oral mucous membranes Neck: no nuchal rigidity Respiratory: normal respiratory effort Auscultation: + diminished lung sounds Cardiovascular: Rate/Rhythm: regular rate and regular rhythm Heart Sounds: + murmur Extremities: no edema Gastrointestinal (Abdomen): Inspection/Auscultation: + abdomen distended and normal bowel sounds Percussion/Palpation: abdomen soft and + fluid wave; abdomen nontender Musculoskeletal: Extremities: strength 5/5 throughout Skin: no rashes, warm and dry Psychiatric: Orientation: alert and oriented x 3 Results & Data Vital Signs (Past 12 Hours) Vital Signs Temp Pulse Resp BP Pulse Ox O2 Del Method 02/26/25 07:31 36.4 C L 86 18 94/47 L 95 Room Air Laboratory Results 02/26/25 10:05 02/26/25 10:05 (2) Lumbar compression fracture Encounter type: initial encounter Lumbar vertebra fracture level: unspecified lumbar vertebra Qualified Code(s): S32.000A - Wedge compression fracture of unspecified lumbar vertebra, initial encounter for closed fracture
[2025-02-26] MEDS: dexAMETHasone 4 MG TAB PO ONE (09:29)
[2025-02-26 10:42] LABS: Hematocrit (blood only) 23.5 % (42.0-52.0); Hemoglobin 7.9 g/dl (14.0-18.0); Mean Corpuscular Hemoglobin 32.5 pg (25.0-34.0); Mean Corpuscular Hgb Conc 33.6 g/dL (32.0-36.0); Mean Corpuscular Volume 96.7 fL (80.0-100.0); Mean Platelet Volume 10.1 fL (9.4-12.4); Platelet Count 70 K/uL (130-400); RDW Coefficient of Variation 24.2 % (11.5-14.5); RDW Standard Deviation 84.4 fL (36.4-46.3); Red Blood Count 2.43 M/uL (4.70-6.10); White Blood Count 7.94 K/ul (4.8-10.8)
[2025-02-26 11:05] LABS: Albumin Globulin Ratio 0.6 (0.9-2); BUN Creatinine Ratio 19.8 (10-20); Bilirubin,Total 3.9 mg/dl (0.2-1.0); Creatinine Clr Calc Pharmacy 84.8 ml/min; Globulin 3.4 gm/dl (2.5-4.0); Magnesium 2.1 mg/dl (1.7-2.4); Phosphorus 3.6 mg/dl (2.5-4.9); Total Protein 5.4 gm/dl (6.0-8.3)
--- NOTE | 2025-02-26 11:34 | Hospitalist Progress Note ---
Date of Service February 26, 2025 Assessment & Plan (1) Generalized weakness: (2) Fracture of left proximal fibula: (3) Lumbar compression fracture: (4) BERT (acute kidney injury): (5) Recurrent falls while walking: (6) Hyponatremia: (7) Ascites: (8) Cirrhosis: (9) Thrombocytopenia: (10) Diabetes mellitus, type 2: Plan Mr. 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 Patient noted to have lumbar compression fracture, left proximal fibular fracture and acute on chronic hyponatremia. Hyponatremia more stable and pain controlled. Will need to await rad onc treatments prior to discharge to rehab. Acute on chronic hyponatremia Sodium levels dropped to 123 Multifactorial, likely also iso cirrhotic patient Nephrology consulted nephro recommendations: goal is to keep NA 125 or greater Continue torsemide 20 bid Nephrology recs reviewed, discontinued aldactone and salt tabs Fluid restrictions added to 1500 mL/day Nephrology recs reviewed: - avoid urea, salt tabs >> not well tolerated, not appropriate for his hypervolemic hyponatremia. - encourage 50g protein - Continue daily bmp Hypokalemia reduced KCL from 30meq BID to 20meq BID prn dosing to keep >4.0 follow bmp Acute compression fracture of L1 and L2 Mechanical Fall Generalized weakness Fell from bed while turning around without any loss of consciousness --Lumbar CT:Acute compression fractures of the L1 and L2 vertebral bodies without posterior retropulsion. Otherwise no change. Conservative management:Continue brace with activity; No lifting over 5 to 10 pounds Needs follow-up with orthopedics in 2 weeks on discharge Plan to discharge to rehab facility when completed rad/onc tx PRN pain meds, decadron before rx Fracture of left proximal fibula--Subacute Suspected Maisonneuve injury Likely secondary to prior fall -Imaging:There is a subacute, unhealed, anatomically aligned fracture of the left fibular neck with developing callus. --Appreciate orthopedics input. Do not recommend any surgical intervention currently. No real restrictions for left lower extremity per Ortho Pain noted to be in calves, improved with myoflex and lidocaine patches Oral ulceration improving Looks like Aphthous, reports resolved Acute Kidney Injury*resolved Cr: 1.5>>0.97 Received gentle IV fluids Avoid nephrotoxic agents as able Renal function stable Questionable pneumonia on chest x-ray Acute to subacute left rib fractures--POA --Chest CT:Increased size of large left pleural effusion with complete collapse of the left lung. Nondisplaced acute to recent subacute lower left rib fractures. Otherwise as described. -- Continue incentive spirometry Gonzales liver cirrhosis s.p TIPS hepatocellular carcinoma/liver lesions Patient received embolization of the right lower lobe lesion in 07/2023 Repeat MRI in 01/2024 showed treatment cavity enhancement patient subsequently treated with TACE MRI on 11/14/2024 showed abnormalities in hepatic segment 7 and currently as per patient getting SBRT Radiation therapy per radiation oncology On lactulose and Xifaxan Continue midodrine 15 mg p.o. 3 times daily Patient is getting evaluated for liver transplant Monitor for volume overload, continue diuertics Rad Onc with planned treatments next week potentially T,,Mon (will need Dexamethaxone 4mg 1 hour prior to each treatment) Chronic thrombocytopenia 2/2 cirrhosis No acute bleeding issues Monitor platelet count Hemoglobin, platelet count stable Moderate aortic stenosis Pulmonary hypertension Follow-up with cardiology DM II Continue home Lantus Sliding scale monitor BGs Anemia of chronic disease Hemoglobin 8.9 monitor History of left hepatic hydrothorax Recently needed chest tube placement stable at this time gout continue Allopurinol BPH On Flomax Monitor for urinary retention Hyperlipidemia On Lipitor DVT prophylaxis SCDs Re: Significant thrombocytopenia CODE STATUS Full code Disposition Rehab when accepted, Na level acceptable; will need to complete radiation treatments, likely Monday Admission and Anticipated Discharge Date Admission Date: February 08, 2025 Subjective pt was seen in the AM Concerned about his lidocaine patches for his pain in leg and back Also need for decadron before his radiation rx Review of Systems Review of Systems: All systems reviewed & are unremarkable except as noted in Subjective Physical Exam Physical Exam: General: Alert, oriented. No acute distress HEENT: NC/AT CV: RRR Resp: Breath sounds clear bilaterally, no increased effort of breathing Abdomen: Soft, distended Extremities: No edema in lower extremities bilaterally. Results & Data Results & Data Vital Signs (Past 12 Hours) Vital Signs Temp Pulse Resp BP BP Pulse Ox O2 Del Method 02/26/25 10:17 84 103/63 02/26/25 07:31 36.4 C L 86 18 94/47 L 95 Room Air (3) Lumbar compression fracture Encounter type: initial encounter Lumbar vertebra fracture level: unspecified lumbar vertebra Qualified Code(s): S32.000A - Wedge compression fracture of unspecified lumbar vertebra, initial encounter for closed fracture (10) Diabetes mellitus, type 2 Diabetes mellitus complication status: with other specified complication Diabetes mellitus chcf insulin use: with chcf use Qualified Code(s): E11.69 - Type 2 diabetes mellitus with other specified complication; 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
[2025-02-26] MEDS: LIDOCAINE 5% 1 PATCH TD SCH (13:12)
[2025-02-27 06:48] LABS: Basophils # (auto) 0.01 K/uL (0.00-0.20); Basophils % (auto) 0.1 %; Eosinophils # (auto) 0.01 K/uL (0.00-0.50); Eosinophils % (auto) 0.1 %; Hematocrit (blood only) 22.2 % (42.0-52.0); Hemoglobin 7.6 g/dl (14.0-18.0); Immature Granulocytes # (auto) 0.07 K/uL (0.01-0.20); Immature Granulocytes % (auto) 0.9 %; Lymphocytes # (auto) 0.21 K/uL (1.20-3.40); Lymphocytes % (auto) 2.8 %; Mean Corpuscular Hemoglobin 33.3 pg (25.0-34.0); Mean Corpuscular Hgb Conc 34.2 g/dL (32.0-36.0); Mean Corpuscular Volume 97.4 fL (80.0-100.0); Mean Platelet Volume 10.4 fL (9.4-12.4); Monocytes # (auto) 1.56 K/uL (0.11-0.59); Monocytes % (auto) 20.6 %; Neutrophils # (auto) 5.71 K/uL (1.40-6.50); Neutrophils % (auto) 75.5 %; Platelet Count 68 K/uL (130-400); RDW Coefficient of Variation 24.4 % (11.5-14.5); Red Blood Count 2.28 M/uL (4.70-6.10); White Blood Count 7.57 K/ul (4.8-10.8)
[2025-02-27 07:10] LABS: Acanthocytes 1+
[2025-02-27 07:31] LABS: Albumin Globulin Ratio 0.6 (0.9-2); Albumin Level 1.9 gm/dl (3.4-5.0); BUN Creatinine Ratio 19.7 (10-20); Bilirubin,Total 2.9 mg/dl (0.2-1.0); Calcium 7.9 mg/dl (8.6-10.3); Creatinine Clr Calc Pharmacy 80.5 ml/min; Globulin 3.2 gm/dl (2.5-4.0); Phosphorus 3.4 mg/dl (2.5-4.9); Total Protein 5.1 gm/dl (6.0-8.3)
--- NOTE | 2025-02-27 12:16 | Nephrology Progress Note ---
Date of Service February 27, 2025 Assessment & Plan (1) Hyponatremia: Plan: Hypervolemic hyponatremia as expected In a patient with liver Cirrhosis, liver carcinoma. He was on diuretics in the past but not on admission. na 127 as of 02/23 and essentially plateu'd since 02/17 though possible uptrend now w/ value 131 today. with his liver disease, unlikely ever to achieve normal sodium in serum -> d/t worsening renal function lowered torsemide to 10 mg bid>> hold parameters in place for SBP <85; baseline creatinine 0.8 and up to 1.2 today after plateau several days at 1.1 >added spironolactone 25 mg daily same hold parameters - maintain eukalemia>>>> hold KCL for now on lower torse dose and now on spironolactone - avoid urea, salt tabs >> not well tolerated and not appropriate for his hypervolemic hyponatremia. >>he is intolerant of urea and of protein shakes > target 50 gm daily protein intake; challenging w/ po preferences - BMP daily -control pain w/o NSAIDS -FR and sodium limits need to continue; have repeatedly reiterated this w/ him Will provide d/c recs tomorrow Care coordinated w/ Dr Lopez in person re meds, d/c dispo, planned f/u > we are in agreement. (2) Lumbar compression fracture: Plan: conservative management per primary team (3) BERT (acute kidney injury): Plan: had Creat of 1.5 on 02/07 but since 02/12 stable in range of 0.8-1. - monitor closely since restarting diuretics > plateaud after slight uptick at 1.1 today -continue max dose midodrine d/t hypotension Admission and Anticipated Discharge Date Admission Date: February 08, 2025 Subjective no interval events clinically; final treatment for tomorrow and then d/c to [facility] after, though auth has not gone through yet. denies n/v. c/o fluid limit and thirst. ? if abd girth increasing. Review of Systems 2 Review of Systems: All systems reviewed & are unremarkable except as noted in Subjective Physical Exam 2 Constitutional: well developed (resting in bed on RA, dosing but wakens fully) and well nourished; no acute distress Eyes: EOM intact bilaterally ENMT: Mouth: + dry oral mucous membranes Neck: no nuchal rigidity Respiratory: normal respiratory effort Auscultation: + diminished lung sounds Cardiovascular: Rate/Rhythm: regular rate and regular rhythm Heart Sounds: + murmur Extremities: no edema Gastrointestinal (Abdomen): Inspection/Auscultation: + abdomen distended and normal bowel sounds Percussion/Palpation: abdomen soft and + fluid wave; abdomen nontender Musculoskeletal: Extremities: strength 5/5 throughout Skin: no rashes, warm and dry Psychiatric: Orientation: alert and oriented x 3 Results & Data Vital Signs (Past 12 Hours) Vital Signs Temp Pulse Resp BP Pulse Ox O2 Del Method 02/27/25 08:55 93/51 L 02/27/25 07:34 36.3 C L 79 18 97/53 L 96 Room Air Laboratory Results 02/27/25 06:20 02/27/25 06:20 (2) Lumbar compression fracture Encounter type: initial encounter Lumbar vertebra fracture level: unspecified lumbar vertebra Qualified Code(s): S32.000A - Wedge compression fracture of unspecified lumbar vertebra, initial encounter for closed fracture
[2025-02-27] MEDS: SPIRONOLACTONE 25 MG TAB PO SCH (13:27)
[2025-02-27] MEDS: dexAMETHasone 4 MG TAB PO ONE (14:05)
--- NOTE | 2025-02-27 15:41 | Hospitalist Progress Note ---
Date of Service February 27, 2025 Assessment & Plan (1) Generalized weakness: (2) Fracture of left proximal fibula: (3) Lumbar compression fracture: (4) BERT (acute kidney injury): (5) Recurrent falls while walking: (6) Hyponatremia: (7) Ascites: (8) Cirrhosis: (9) Thrombocytopenia: (10) Diabetes mellitus, type 2: Plan Mr. 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 Patient noted to have lumbar compression fracture, left proximal fibular fracture and acute on chronic hyponatremia. Hyponatremia more stable and pain controlled. Will need to await rad onc treatments prior to discharge to rehab. Acute on chronic hyponatremia Sodium levels dropped to 123 Multifactorial, likely also iso cirrhotic patient Nephrology consulted nephro recommendations: goal is to keep NA 125 or greater Continue torsemide 20 bid Nephrology recs reviewed, discontinued aldactone and salt tabs Fluid restrictions added to 1500 mL/day Nephrology recs reviewed: - avoid urea, salt tabs >> not well tolerated, not appropriate for his hypervolemic hyponatremia. - encourage 50g protein - Continue daily bmp Hypokalemia reduced KCL from 30meq BID to 20meq BID prn dosing to keep >4.0 follow bmp Acute compression fracture of L1 and L2 Mechanical Fall Generalized weakness Fell from bed while turning around without any loss of consciousness --Lumbar CT:Acute compression fractures of the L1 and L2 vertebral bodies without posterior retropulsion. Otherwise no change. Conservative management:Continue brace with activity; No lifting over 5 to 10 pounds Needs follow-up with orthopedics in 2 weeks on discharge Plan to discharge to rehab facility when completed rad/onc tx PRN pain meds, decadron before rx Fracture of left proximal fibula--Subacute Suspected Maisonneuve injury Likely secondary to prior fall -Imaging:There is a subacute, unhealed, anatomically aligned fracture of the left fibular neck with developing callus. --Appreciate orthopedics input. Do not recommend any surgical intervention currently. No real restrictions for left lower extremity per Ortho Pain noted to be in calves, improved with myoflex and lidocaine patches Oral ulceration improving Looks like Aphthous, reports resolved Acute Kidney Injury*resolved Cr: 1.5>>0.97 Received gentle IV fluids Avoid nephrotoxic agents as able Renal function stable Questionable pneumonia on chest x-ray Acute to subacute left rib fractures--POA --Chest CT:Increased size of large left pleural effusion with complete collapse of the left lung. Nondisplaced acute to recent subacute lower left rib f ractures. Otherwise as described. -- Continue incentive spirometry Gonzales liver cirrhosis s.p TIPS hepatocellular carcinoma/liver lesions Patient received embolization of the right lower lobe lesion in 07/2023 Repeat MRI in 01/2024 showed treatment cavity enhancement patient subsequently treated with TACE MRI on 11/14/2024 showed abnormalities in hepatic segment 7 and currently as per patient getting SBRT Radiation therapy per radiation oncology On lactulose and Xifaxan Continue midodrine 15 mg p.o. 3 times daily Patient is getting evaluated for liver transplant Monitor for volume overload, continue diuertics Rad Onc with planned treatments next week potentially T,W,Mon (will need Dexamethaxone 4mg 1 hour prior to each treatment) Chronic thrombocytopenia 2/2 cirrhosis No acute bleeding issues Monitor platelet count Hemoglobin, platelet count stable Moderate aortic stenosis Pulmonary hypertension Follow-up with cardiology DM II Continue home Lantus Sliding scale monitor BGs Anemia of chronic disease Hemoglobin 8.9 monitor History of left hepatic hydrothorax Recently needed chest tube placement stable at this time gout continue Allopurinol BPH On Flomax Monitor for urinary retention Hyperlipidemia On Lipitor DVT prophylaxis SCDs Re: Significant thrombocytopenia CODE STATUS Full code Disposition Rehab when accepted, Na level acceptable; will need to complete radiation treatments, likely Monday Admission and Anticipated Discharge Date Admission Date: February 08, 2025 Subjective pt was seen in the AM, laying in bed watching tv concerned about his lunch order being incorrect Due for last radiation treatment tomorrow Review of Systems Review of Systems: All systems reviewed & are unremarkable except as noted in Subjective Physical Exam Physical Exam: General: Alert, oriented. No acute distress HEENT: NC/AT CV: RRR Resp: Breath sounds clear bilaterally, no increased effort of breathing Abdomen: Soft, distended Extremities: No edema in lower extremities bilaterally. Results & Data Results & Data Vital Signs (Past 12 Hours) Vital Signs Temp Pulse Resp BP BP Pulse Ox O2 Del Method 02/27/25 13:26 96/49 L 02/27/25 12:20 83 94/49 L 02/27/25 08:55 93/51 L 02/27/25 07:34 36.3 C L 79 18 97/53 L 96 Room Air (3) Lumbar compression fracture Encounter type: initial encounter Lumbar vertebra fracture level: unspecified lumbar vertebra Qualified Code(s): S32.000A - Wedge compression fracture of unspecified lumbar vertebra, initial encounter for closed fracture (10) Diabetes mellitus, type 2 Diabetes mellitus complication status: with other specified complication Diabetes 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
[2025-02-27] MEDS: TORSEMIDE 10 MG TAB PO SCH (16:56)
[2025-02-28] MEDS: dexAMETHasone 4 MG TAB PO ONE (07:54)
[2025-02-28] MEDS ORDERED: dexAMETHasone 4 MG TAB PO ONE (08:00)
[2025-02-28 08:01] LABS: Basophils # (auto) 0.01 K/uL (0.00-0.20); Basophils % (auto) 0.2 %; Hematocrit (blood only) 22.6 % (42.0-52.0); Hemoglobin 7.7 g/dl (14.0-18.0); Immature Granulocytes # (auto) 0.07 K/uL (0.01-0.20); Immature Granulocytes % (auto) 1.2 %; Lymphocytes # (auto) 0.14 K/uL (1.20-3.40); Lymphocytes % (auto) 2.3 %; Mean Corpuscular Hemoglobin 33.3 pg (25.0-34.0); Mean Corpuscular Hgb Conc 34.1 g/dL (32.0-36.0); Mean Corpuscular Volume 97.8 fL (80.0-100.0); Mean Platelet Volume 10.6 fL (9.4-12.4); Monocytes # (auto) 0.76 K/uL (0.11-0.59); Monocytes % (auto) 12.6 %; Neutrophils # (auto) 5.04 K/uL (1.40-6.50); Neutrophils % (auto) 83.7 %; Platelet Count 58 K/uL (130-400); RDW Coefficient of Variation 24.2 % (11.5-14.5); RDW Standard Deviation 83.9 fL (36.4-46.3); Red Blood Count 2.31 M/uL (4.70-6.10); White Blood Count 6.02 K/ul (4.8-10.8)
[2025-02-28 08:27] LABS: Albumin Globulin Ratio 0.6 (0.9-2); Albumin Level 1.9 gm/dl (3.4-5.0); Bilirubin,Total 2.7 mg/dl (0.2-1.0); Calcium 7.9 mg/dl (8.6-10.3); Creatinine Clr Calc Pharmacy 87.2 ml/min; Globulin 3.4 gm/dl (2.5-4.0); Magnesium 2.1 mg/dl (1.7-2.4); Phosphorus 3.6 mg/dl (2.5-4.9); Total Protein 5.3 gm/dl (6.0-8.3)
[2025-02-28 08:29] LABS: Anisocytosis Present; Polychromasia 1+
--- NOTE | 2025-02-28 10:43 | Nephrology Progress Note ---
Date of Service February 28, 2025 Assessment & Plan (1) Hyponatremia: Plan: Hypervolemic hyponatremia as expected In a patient with liver Cirrhosis, liver carcinoma. He was on diuretics in the past but not on admission. na 127 as of 02/23 and essentially plateu'd since 02/17, peaked 131, down to 129 today. with his liver disease, unlikely ever to achieve normal sodium in serum -> d/t worsening renal function lowered torsemide to 10 mg bid>> hold parameters in place for SBP <85; baseline creatinine 0.8 and up to 1.2 today after plateau several days at 1.1 >added spironolactone 25 mg daily same hold parameters 02/28 -intolerant of urea, protein shakes Will sign off NEPHRO D/C RECS DX: Hypervolemic hyponatremia w/ liver carcinoma/liver cirrhosis s/p TIPS RX: -allopurinol 300 mg daily -cipro 500 mg daily per primary service -midodrine 15 mg tid per primary service -KCl 20 mEq bid -torsemide 10 mg bid17; hold for SBP <85 -spironolactone 25 mg daily; hold for SBP <85 OTHER POST D/C CARE: <2 gm daily sodium diet -1.5L FIRM daily fluid limit -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 (2) Lumbar compression fracture: Plan: conservative management per primary team (3) BERT (acute kidney injury): Plan: had Creat of 1.5 on 02/07 but since 02/12 stable in range of 0.8-1. - monitor closely since restarting diuretics > plateaud after slight uptick again at 1.1 today -continue max dose midodrine d/t hypotension Admission and Anticipated Discharge Date Admission Date: February 08, 2025 Subjective completed his tx this am; no n/v, feels abd girth stable; no sob; no edema Review of Systems 2 Review of Systems: All systems reviewed & are unremarkable except as noted in Subjective Physical Exam 2 Constitutional: well developed (resting flat in bed on RA) and well nourished; no acute distress Eyes: EOM intact bilaterally ENMT: Mouth: + dry oral mucous membranes Neck: no nuchal rigidity Respiratory: normal respiratory effort Auscultation: + diminished lung sounds Cardiovascular: Rate/Rhythm: regular rate and regular rhythm Heart Sounds: + murmur Extremities: no edema Gastrointestinal (Abdomen): Inspection/Auscultation: + abdomen distended and normal bowel sounds Percussion/Palpation: abdomen soft and + fluid wave; abdomen nontender Musculoskeletal: Extremities: strength 5/5 throughout Skin: no rashes, warm and dry Psychiatric: Orientation: alert and oriented x 3 Results & Data Vital Signs (Past 12 Hours) Vital Signs Temp Pulse Resp BP Pulse Ox O2 Del Method 02/28/25 08:03 36.9 C 71 16 95/58 L 98 Room Air Laboratory Results 02/28/25 07:18 02/28/25 07:18 (2) Lumbar compression fracture Encounter type: initial encounter Lumbar vertebra fracture level: unspecified lumbar vertebra Qualified Code(s): S32.000A - Wedge compression fracture of unspecified lumbar vertebra, initial encounter for closed fracture
--- NOTE | 2025-02-28 12:31 | Hospitalist Progress Note ---
Date of Service February 28, 2025 Assessment & Plan (1) Generalized weakness: (2) Fracture of left proximal fibula: (3) Lumbar compression fracture: (4) BERT (acute kidney injury): (5) Recurrent falls while walking: (6) Hyponatremia: (7) Ascites: (8) Cirrhosis: (9) Thrombocytopenia: (10) Diabetes mellitus, type 2: Plan Mr. 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 Patient noted to have lumbar compression fracture, left proximal fibular fracture and acute on chronic hyponatremia. Hyponatremia more stable and pain controlled. Will need to await rad onc treatments prior to discharge to rehab. Completed onc treatments on 02/28/[address]. Acute on chronic hyponatremia Sodium levels dropped to 123 Multifactorial, likely also iso cirrhotic patient Nephrology consulted nephro recommendations: goal is to keep NA 125 or greater Continue torsemide 20 bid Nephrology recs reviewed, discontinued aldactone and salt tabs Fluid restrictions added to 1500 mL/day Nephrology recs reviewed: - avoid urea, salt tabs >> not well tolerated, not appropriate for his hypervolemic hyponatremia. - encourage 50g protein - Continue daily bmp Hypokalemia reduced KCL from 30meq BID to 20meq BID prn dosing to keep >4.0 follow bmp Acute compression fracture of L1 and L2 Mechanical Fall Generalized weakness Fell from bed while turning around without any loss of consciousness --Lumbar CT:Acute compression fractures of the L1 and L2 vertebral bodies wit hout posterior retropulsion. Otherwise no change. Conservative management:Continue brace with activity; No lifting over 5 to 10 pounds Needs follow-up with orthopedics in 2 weeks on discharge Plan to discharge to rehab facility when completed rad/onc tx PRN pain meds, decadron before rx Fracture of left proximal fibula--Subacute Suspected Maisonneuve injury Likely secondary to prior fall -Imaging:There is a subacute, unhealed, anatomically aligned fracture of the left fibular neck with developing callus. --Appreciate orthopedics input. Do not recommend any surgical intervention currently. No real restrictions for left lower extremity per Ortho Pain noted to be in calves, improved with myoflex and lidocaine patches Oral ulceration improving Looks like Aphthous, reports resolved Acute Kidney Injury*resolved Cr: 1.5>>0.97 Received gentle IV fluids Avoid nephrotoxic agents as able Renal function stable Questionable pneumonia on chest x-ray Acute to subacute left rib fractures--POA --Chest CT:Increased size of large left pleural effusion with complete collapse of the left lung. Nondisplaced acute to recent subacute lower left rib fractures. Otherwise as described. -- Continue incentive spirometry Gonzales liver cirrhosis s.p TIPS hepatocellular carcinoma/liver lesions Patient received embolization of the right lower lobe lesion in 07/2023 Repeat MRI in 01/2024 showed treatment cavity enhancement patient subsequently treated with TACE MRI on 11/14/2024 showed abnormalities in hepatic segment 7 and currently as per patient getting SBRT Radiation therapy per radiation oncology On lactulose and Xifaxan Continue midodrine 15 mg p.o. 3 times daily Patient is getting evaluated for liver transplant Monitor for volume overload, continue diuertics Rad Onc with planned treatments next week potentially T,W,Mon (will need Dexamethaxone 4mg 1 hour prior to each treatment) Chronic thrombocytopenia 2/2 cirrhosis No acute bleeding issues Monitor platelet count Hemoglobin, platelet count stable Moderate aortic stenosis Pulmonary hypertension Follow-up with cardiology DM II Continue home Lantus Sliding scale monitor BGs Anemia of chronic disease Hemoglobin 8.9 monitor History of left hepatic hydrothorax Recently needed chest tube placement stable at this time gout continue Allopurinol BPH On Flomax Monitor for urinary retention Hyperlipidemia On Lipitor DVT prophylaxis SCDs Re: Significant thrombocytopenia CODE STATUS Full code Disposition Rehab when accepted, Na level acceptable; will need to complete radiation treatments, likely Monday Admission and Anticipated Discharge Date Admission Date: February 08, 2025 Subjective pt with last radiation treatment Awaiting placement Review of Systems Review of Systems: All systems reviewed & are unremarkable except as noted in Subjective Physical Exam Physical Exam: General: Alert, oriented. No acute distress HEENT: NC/AT CV: RRR Resp: Breath sounds clear bilaterally, no increased effort of breathing Abdomen: Soft, distended Extremities: No edema in lower extremities bilaterally. Results & Data Results & Data Vital Signs (Past 12 Hours) Vital Signs Temp Pulse Resp BP Pulse Ox O2 Del Method 02/28/25 11:19 36.9 C 71 17 96/54 L 95 Room Air 02/28/25 08:03 36.9 C 71 16 95/58 L 98 Room Air (3) Lumbar compression fracture Encounter type: initial encounter Lumbar vertebra fracture level: unspecified lumbar vertebra Qualified Code(s): S32.000A - Wedge compression fracture of unspecified lumbar vertebra, initial encounter for closed fracture (10) Diabetes mellitus, type 2 Diabetes mellitus complication status: with other specified complication Diabetes mellitus jail insulin use: with termite exterminator use Qualified Code(s): E11.69 - Type 2 diabetes mellitus with other specified complication; Z79.4 - oysterman (current) use of insulin
[2025-02-28] MEDS: INSULIN ASPART PER UNIT CHARGE SC SCH (20:47)
[2025-02-28] MEDS: LANTUS PER UNIT CHARGE SQ SCH (20:48)
[2025-02-28] MEDS: ALBUMIN 25% 12.5 GM/50 ML VIAL IV ONE (21:36)
[2025-02-28 22:31] LABS: Estimated Average Glucose 97 mg/dl
[2025-03-01 06:19] LABS: Hemoglobin 7.6 g/dl (14.0-18.0); Immature Granulocytes # (auto) 0.05 K/uL (0.01-0.20); Immature Granulocytes % (auto) 0.8 %; Lymphocytes # (auto) 0.12 K/uL (1.20-3.40); Lymphocytes % (auto) 1.9 %; Mean Corpuscular Hemoglobin 33.6 pg (25.0-34.0); Mean Corpuscular Hgb Conc 34.5 g/dL (32.0-36.0); Mean Corpuscular Volume 97.3 fL (80.0-100.0); Mean Platelet Volume 11.7 fL (9.4-12.4); Monocytes # (auto) 0.61 K/uL (0.11-0.59); Monocytes % (auto) 9.6 %; Neutrophils % (auto) 87.7 %; Platelet Count 57 K/uL (130-400); RDW Coefficient of Variation 24.2 % (11.5-14.5); RDW Standard Deviation 82.9 fL (36.4-46.3); Red Blood Count 2.26 M/uL (4.70-6.10); White Blood Count 6.38 K/ul (4.8-10.8)
[2025-03-01 06:42] LABS: Albumin Globulin Ratio 0.6 (0.9-2); Albumin Level 1.9 gm/dl (3.4-5.0); BUN Creatinine Ratio 27.3 (10-20); Bilirubin,Total 2.6 mg/dl (0.2-1.0); Calcium 7.8 mg/dl (8.6-10.3); Creatinine Clr Calc Pharmacy 95.1 ml/min; Globulin 3.1 gm/dl (2.5-4.0); Magnesium 1.9 mg/dl (1.7-2.4); Phosphorus 3.9 mg/dl (2.5-4.9)
[2025-03-01 06:47] LABS: Anisocytosis Present; Polychromasia 1+
[2025-03-01] MEDS: LACTULOSE SYRUP 10 GM/15 ML BTL 960 ML PO SCH (09:00)
--- NOTE | 2025-03-01 14:06 | Hospitalist Progress Note ---
Date of Service March 01, 2025 Assessment & Plan (1) Generalized weakness: (2) Fracture of left proximal fibula: (3) Lumbar compression fracture: (4) BERT (acute kidney injury): (5) Recurrent falls while walking: (6) Hyponatremia: (7) Ascites: (8) Cirrhosis: (9) Thrombocytopenia: (10) Diabetes mellitus, type 2: Plan Mr. 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 Patient noted to have lumbar compression fracture, left proximal fibular fracture and acute on chronic hyponatremia. Hyponatremia more stable and pain controlled. Will need to await rad onc treatments prior to discharge to rehab. Completed onc treatments on 02/28/25 Stable for discharge, Awaiting placement-his insurance company declining rehab placement. Acute on chronic hyponatremia Sodium levels dropped to 123 Multifactorial, likely also iso cirrhotic patient Nephrology consulted nephro recommendations: goal is to keep NA 125 or greater Continue torsemide 20 bid Nephrology recs reviewed, discontinued aldactone and salt tabs Fluid restrictions added to 1500 mL/day Nephrology recs reviewed: - avoid urea, salt tabs >> not well tolerated, not appropriate for his hypervolemic hyponatremia. - encourage 50g protein - Continue daily bmp Hypokalemia reduced KCL from 30meq BID to 20meq BID prn dosing to keep >4.0 follow bmp Acute compression fracture of L1 and L2 Mechanical Fall Generalized weakness Fell from bed while turning around without any loss of consciousness --Lumbar CT:Acute compression fractures of the L1 and L2 vertebral bodies without posterior retropulsion. Otherwise no change. Conservative management:Continue brace with activity; No lifting over 5 to 10 pounds Needs follow-up with orthopedics in 2 weeks on discharge Plan to discharge to rehab facility when completed rad/onc tx PRN pain meds, decadron before rx Fracture of left proximal fibula--Subacute Suspected Maisonneuve injury Likely secondary to prior fall -Imaging:There is a subacute, unhealed, anatomically aligned fracture of the left fibular neck with developing callus. --Appreciate orthopedics input. Do not recommend any surgical intervention currently. No real restrictions for left lower extremity per Ortho Pain noted to be in calves, improved with myoflex and lidocaine patches Oral ulceration improving Looks like Aphthous, reports resolved Acute Kidney Injury*resolved Cr: 1.5>>0.97 Received gentle IV fluids Avoid nephrotoxic agents as able Renal function stable Questionable pneumonia on chest x-ray Acute to subacute left rib fractures--POA --Chest CT:Increased size of large left pleural effusion with complete collapse of the left lung. Nondisplaced acute to recent subacute lower left rib fractures. Otherwise as described. -- Continue incentive spirometry Gonzales liver cirrhosis s.p TIPS hepatocellular carcinoma/liver lesions Patient received embolization of the right lower lobe lesion in 07/2023 Repeat MRI in 01/2024 showed treatment cavity enhancement patient subsequently treated with TACE MRI on 11/14/2024 showed abnormalities in hepatic segment 7 and currently as per patient getting SBRT Radiation therapy per radiation oncology On lactulose and Xifaxan Continue midodrine 15 mg p.o. 3 times daily Patient is getting evaluated for liver transplant Monitor for volume overload, continue diuertics Rad Onc with planned treatments next week potentially T,W,Mon (will need Dexamethaxone 4mg 1 hour prior to each treatment) Chronic thrombocytopenia 2/2 cirrhosis No acute bleeding issues Monitor platelet count Hemoglobin, platelet count stable Moderate aortic stenosis Pulmonary hypertension Follow-up with cardiology DM II Continue home Lantus Sliding scale monitor BGs Anemia of chronic disease Hemoglobin 8.9 monitor History of left hepatic hydrothorax Recently needed chest tube placement stable at this time gout continue Allopurinol BPH On Flomax Monitor for urinary retention Hyperlipidemia On Lipitor DVT prophylaxis SCDs Re: Significant thrombocytopenia CODE STATUS Full code Disposition Rehab when accepted, Na level acceptable; will need to complete radiation treatments, likely Monday Admission and Anticipated Discharge Date Admission Date: February 08, 2025 Subjective Awaiting placement, denies acute medical concerns frustrated that his insurance company is declining rehab Review of Systems Review of Systems: All systems reviewed & are unremarkable except as noted in Subjective Physical Exam Physical Exam: General: Alert, oriented. No acute distress HEENT: NC/AT CV: RRR Resp: Breath sounds clear bilaterally, no increased effort of breathing Abdomen: Soft, distended Extremities: No edema in lower extremities bilaterally. 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
[2025-03-02 07:11] LABS: Eosinophils # (auto) 0.02 K/uL (0.00-0.50); Eosinophils % (auto) 0.3 %; Hematocrit (blood only) 23.7 % (42.0-52.0); Hemoglobin 8.2 g/dl (14.0-18.0); Immature Granulocytes # (auto) 0.03 K/uL (0.01-0.20); Immature Granulocytes % (auto) 0.4 %; Lymphocytes # (auto) 0.21 K/uL (1.20-3.40); Lymphocytes % (auto) 2.9 %; Mean Corpuscular Hemoglobin 33.7 pg (25.0-34.0); Mean Corpuscular Hgb Conc 34.6 g/dL (32.0-36.0); Mean Corpuscular Volume 97.5 fL (80.0-100.0); Mean Platelet Volume 10.2 fL (9.4-12.4); Monocytes # (auto) 1.22 K/uL (0.11-0.59); Neutrophils # (auto) 5.69 K/uL (1.40-6.50); Neutrophils % (auto) 79.4 %; Platelet Count 57 K/uL (130-400); RDW Coefficient of Variation 24.7 % (11.5-14.5); Red Blood Count 2.43 M/uL (4.70-6.10); White Blood Count 7.17 K/ul (4.8-10.8)
[2025-03-02 07:36] LABS: Anisocytosis Present; Poikilocytosis Present; Polychromasia 1+
[2025-03-02 07:43] LABS: Albumin Globulin Ratio 0.6 (0.9-2); BUN Creatinine Ratio 30.2 (10-20); Bilirubin,Total 2.9 mg/dl (0.2-1.0); Calcium 7.8 mg/dl (8.6-10.3); Creatinine Clr Calc Pharmacy 98.1 ml/min; Globulin 3.2 gm/dl (2.5-4.0); Magnesium 1.9 mg/dl (1.7-2.4); Phosphorus 3.7 mg/dl (2.5-4.9); Potassium 3.5 mmol/L (3.5-5.1); Total Protein 5.2 gm/dl (6.0-8.3)
--- NOTE | 2025-03-02 13:56 | Hospitalist Progress Note ---
Date of Service March 02, 2025 Assessment & Plan (1) Generalized weakness: (2) Fracture of left proximal fibula: (3) Lumbar compression fracture: (4) BERT (acute kidney injury): (5) Recurrent falls while walking: (6) Hyponatremia: (7) Ascites: (8) Cirrhosis: (9) Thrombocytopenia: (10) Diabetes mellitus, type 2: Plan Mr. 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 Patient noted to have lumbar compression fracture, left proximal fibular fracture and acute on chronic hyponatremia. Hyponatremia more stable and pain controlled. Will need to await rad onc treatments prior to discharge to rehab. Completed onc treatments on 02/28/25 Stable for discharge, Awaiting placement-his insurance company declining rehab placement. Acute on chronic hyponatremia Sodium levels dropped to 123 Multifactorial, likely also iso cirrhotic patient Nephrology consulted nephro recommendations: goal is to keep NA 125 or greater Continue torsemide 20 bid Nephrology recs reviewed, discontinued aldactone and salt tabs Fluid restrictions added to 1500 mL/day Nephrology recs reviewed: - avoid urea, salt tabs >> not well tolerated, not appropriate for his hypervolemic hyponatremia. - encourage 50g protein - Continue daily bmp Hypokalemia reduced KCL from 30meq BID to 20meq BID prn dosing to keep >4.0 follow bmp Acute compression fracture of L1 and L2 Mechanical Fall Generalized weakness Fell from bed while turning around without any loss of consciousness --Lumbar CT:Acute compression fractures of the L1 and L2 vertebral bodies without posterior retropulsion. Otherwise no change. Conservative management:Continue brace with activity; No lifting over 5 to 10 pounds Needs follow-up with orthopedics in 2 weeks on discharge Plan to discharge to rehab facility when completed rad/onc tx PRN pain meds, decadron before rx Fracture of left proximal fibula--Subacute Suspected Maisonneuve injury Likely secondary to prior fall -Imaging:There is a subacute, unhealed, anatomically aligned fracture of the left fibular neck with developing callus. --Appreciate orthopedics input. Do not recommend any surgical intervention currently. No real restrictions for left lower extremity per Ortho Pain noted to be in calves, improved with myoflex and lidocaine patches Oral ulceration improving Looks like Aphthous, reports resolved Acute Kidney Injury*resolved Cr: 1.5>>0.97 Received gentle IV fluids Avoid nephrotoxic agents as able Renal function stable Questionable pneumonia on chest x-ray Acute to subacute left rib fractures--POA --Chest CT:Increased size of large left pleural effusion with complete collapse of the left lung. Nondisplaced acute to recent subacute lower left rib fractures. Otherwise as described. -- Continue incentive spirometry Gonzales liver cirrhosis s.p TIPS hepatocellular carcinoma/liver lesions Patient received embolization of the right lower lobe lesion in 07/2023 Repeat MRI in 01/2024 showed treatment cavity enhancement patient subsequently treated with TACE MRI on 11/14/2024 showed abnormalities in hepatic segment 7 and currently as per patient getting SBRT Radiation therapy per radiation oncology On lactulose and Xifaxan Continue midodrine 15 mg p.o. 3 times daily Patient is getting evaluated for liver transplant Monitor for volume overload, continue diuertics Rad Onc with planned treatments next week potentially T,W,Mon (will need Dexamethaxone 4mg 1 hour prior to each treatment) Chronic thrombocytopenia 2/2 cirrhosis No acute bleeding issues Monitor platelet count Hemoglobin, platelet count stable Moderate aortic stenosis Pulmonary hypertension Follow-up with cardiology DM II Continue home Lantus Sliding scale monitor BGs Anemia of chronic disease Hemoglobin 8.9 monitor History of left hepatic hydrothorax Recently needed chest tube placement stable at this time gout continue Allopurinol BPH On Flomax Monitor for urinary retention Hyperlipidemia On Lipitor DVT prophylaxis SCDs Re: Significant thrombocytopenia CODE STATUS Full code Disposition Rehab when accepted, Na level acceptable; will need to complete radiation treatments, likely Monday Admission and Anticipated Discharge Date Admission Date: February 08, 2025 Subjective Awaiting placement, states that overnight he had episodes of nausea and dry heaving frustrated that his insurance company is declining rehab Review of Systems Review of Systems: All systems reviewed & are unremarkable except as noted in Subjective Physical Exam Physical Exam: General: Alert, oriented. No acute distress HEENT: NC/AT CV: RRR, + murmur Resp: Breath sounds clear bilaterally, no increased effort of breathing Abdomen: Soft, distended Extremities: No edema in lower extremities bilaterally. Results & Data Results & Data Vital Signs (Past 12 Hours) Vital Signs Temp Pulse Resp BP Pulse Ox O2 Del Method 03/02/25 07:16 36.5 C 79 18 103/60 98 Room Air (3) Lumbar compression fracture Encounter type: initial encounter Lumbar vertebra fracture level: unspecified lumbar vertebra Qualified Code(s): S32.000A - Wedge compression fracture of unspecified lumbar vertebra, initial encounter for closed fracture (10) Diabetes mellitus, type 2 Diabetes mellitus complication status: with other specified complication Diabetes mellitus shelter insulin use: with recreational sports director use Qualified Code(s): E11.69 - Type 2 diabetes mellitus with other specified complication; Z79.4 - mainspring strip gauger (current) use of insulin
[2025-03-03 07:36] LABS: Basophils # (auto) 0.01 K/uL (0.00-0.20); Basophils % (auto) 0.1 %; Eosinophils # (auto) 0.12 K/uL (0.00-0.50); Eosinophils % (auto) 1.5 %; Hematocrit (blood only) 25.7 % (42.0-52.0); Hemoglobin 8.9 g/dl (14.0-18.0); Immature Granulocytes # (auto) 0.06 K/uL (0.01-0.20); Immature Granulocytes % (auto) 0.8 %; Lymphocytes # (auto) 0.29 K/uL (1.20-3.40); Lymphocytes % (auto) 3.7 %; Mean Corpuscular Hgb Conc 34.6 g/dL (32.0-36.0); Mean Corpuscular Volume 98.1 fL (80.0-100.0); Mean Platelet Volume 10.4 fL (9.4-12.4); Monocytes # (auto) 1.31 K/uL (0.11-0.59); Monocytes % (auto) 16.8 %; Neutrophils # (auto) 6.01 K/uL (1.40-6.50); Neutrophils % (auto) 77.1 %; Platelet Count 65 K/uL (130-400); RDW Coefficient of Variation 24.7 % (11.5-14.5); RDW Standard Deviation 86.2 fL (36.4-46.3); Red Blood Count 2.62 M/uL (4.70-6.10)
[2025-03-03 07:57] LABS: Albumin Globulin Ratio 0.6 (0.9-2); BUN Creatinine Ratio 24.3 (10-20); Bilirubin,Total 3.7 mg/dl (0.2-1.0); Calcium 7.6 mg/dl (8.6-10.3); Creatinine Clr Calc Pharmacy 84.8 ml/min; Globulin 3.3 gm/dl (2.5-4.0); Magnesium 1.9 mg/dl (1.7-2.4); Phosphorus 3.7 mg/dl (2.5-4.9); Potassium 3.4 mmol/L (3.5-5.1); Total Protein 5.3 gm/dl (6.0-8.3)
[2025-03-03 07:58] LABS: Acanthocytes 1+; Anisocytosis Present; Polychromasia 1+; Toxic Vacuolation 1+
[2025-03-03] MEDS: POTASSIUM CHLORIDE CRTAB 20 MEQ TABCR PO STA (09:20)
--- NOTE | 2025-03-03 14:59 | Hospitalist Progress Note ---
Date of Service March 03, 2025 Assessment & Plan (1) Generalized weakness: (2) Fracture of left proximal fibula: (3) Lumbar compression fracture: (4) BERT (acute kidney injury): (5) Recurrent falls while walking: (6) Hyponatremia: (7) Ascites: (8) Cirrhosis: (9) Thrombocytopenia: (10) Diabetes mellitus, type 2: Plan Mr. 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 Patient noted to have lumbar compression fracture, left proximal fibular fracture and acute on chronic hyponatremia. Hyponatremia more stable and pain controlled. Will need to await rad onc treatments prior to discharge to rehab. Completed onc treatments on 02/28/25 Stable for discharge, Awaiting placement-his insurance company declining rehab placement. Acute on chronic hyponatremia Sodium levels dropped to 123 Multifactorial, likely also iso cirrhotic patient Nephrology consulted nephro recommendations: goal is to keep NA 125 or greater Continue torsemide 20 bid Nephrology recs reviewed, discontinued aldactone and salt tabs Fluid restrictions added to 1500 mL/day Nephrology recs reviewed: - avoid urea, salt tabs >> not well tolerated, not appropriate for his hypervolemic hyponatremia. - encourage 50g protein - Continue daily bmp Hypokalemia reduced KCL from 30meq BID to 20meq BID prn dosing to keep >4.0 follow bmp Acute compression fracture of L1 and L2 Mechanical Fall Generalized weakness Fell from bed while turning around without any loss of consciousness --Lumbar CT:Acute compression fractures of the L1 and L2 vertebral bodies without posterior retropulsion. Otherwise no change. Conservative management:Continue brace with activity; No lifting over 5 to 10 pounds Needs follow-up with orthopedics in 2 weeks on discharge Plan to discharge to rehab facility when completed rad/onc tx PRN pain meds, decadron before rx Fracture of left proximal fibula--Subacute Suspected Maisonneuve injury Likely secondary to prior fall -Imaging:There is a subacute, unhealed, anatomically aligned fracture of the left fibular neck with developing callus. --Appreciate orthopedics input. Do not recommend any surgical intervention currently. No real restrictions for left lower extremity per Ortho Pain noted to be in calves, improved with myoflex and lidocaine patches Oral ulceration improving Looks like Aphthous, reports resolved Acute Kidney Injury*resolved Cr: 1.5>>0.97 Received gentle IV fluids Avoid nephrotoxic agents as able Renal function stable Questionable pneumonia on chest x-ray Acute to subacute left rib fractures--POA --Chest CT:Increased size of large left pleural effusion with complete collapse of the left lung. Nondisplaced acute to recent subacute lower left rib fractures. Otherwise as described. -- Continue incentive spirometry Gonzales liver cirrhosis s.p TIPS hepatocellular carcinoma/liver lesions Patient received embolization of the right lower lobe lesion in 07/2023 Repeat MRI in 01/2024 showed treatment cavity enhancement patient subsequently treated with TACE MRI on 11/14/2024 showed abnormalities in hepatic segment 7 and currently as per patient getting SBRT Radiation therapy per radiation oncology On lactulose and Xifaxan Continue midodrine 15 mg p.o. 3 times daily Patient is getting evaluated for liver transplant Monitor for volume overload, continue diuertics Rad Onc with planned treatments next week potentially T,W,Mon (will need Dexamethaxone 4mg 1 hour prior to each treatment) Chronic thrombocytopenia 2/2 cirrhosis No acute bleeding issues Monitor platelet count Hemoglobin, platelet count stable Moderate aortic stenosis Pulmonary hypertension Follow-up with cardiology DM II Continue home Lantus Sliding scale monitor BGs Anemia of chronic disease Hemoglobin 8.9 monitor History of left hepatic hydrothorax Recently needed chest tube placement stable at this time gout continue Allopurinol BPH On Flomax Monitor for urinary retention Hyperlipidemia On Lipitor DVT prophylaxis SCDs Re: Significant thrombocytopenia CODE STATUS Full code Disposition Rehab when accepted, Na level acceptable; will need to complete radiation treatments, likely Monday Admission and Anticipated Discharge Date Admission Date: February 08, 2025 Subjective Awaiting placement, concerned about lower extremity edema frustrated that his insurance company is declining rehab Peer to peer scheduled for tomorrow 03/04 in the AM Review of Systems Review of Systems: All systems reviewed & are unremarkable except as noted in Subjective Physical Exam Physical Exam: General: Alert, oriented. No acute distress HEENT: NC/AT CV: RRR, + murmur Resp: Breath sounds clear bilaterally, no increased effort of breathing Abdomen: Soft, distended Extremities: No edema in lower extremities bilaterally. Results & Data Results & Data Vital Signs (Past 12 Hours) Vital Signs Temp Pulse Resp BP Pulse Ox O2 Del Method 03/03/25 10:51 Room Air 03/03/25 07:58 36.7 C 76 18 100/57 L 99 Room Air (3) Lumbar compression fracture Encounter type: initial encounter Lumbar vertebra fracture level: unspecified lumbar vertebra Qualified Code(s): S32.000A - Wedge compression fracture of unspecified lumbar vertebra, initial encounter for closed fracture (10) Diabetes mellitus, type 2 Diabetes mellitus complication status: with other specified complication Diabetes mellitus m[facility]p insulin use: with mcfp use Qualified Code(s): E11.69 - Type 2 diabetes mellitus with other specified complication; Z79.4 - oysterman (current) use of insulin
[2025-03-03 20:04] VITALS: TEMP 97.9
[2025-03-04 07:09] LABS: Basophils # (auto) 0.01 K/uL (0.00-0.20); Basophils % (auto) 0.1 %; Eosinophils # (auto) 0.17 K/uL (0.00-0.50); Eosinophils % (auto) 2.3 %; Hematocrit (blood only) 25.2 % (42.0-52.0); Hemoglobin 8.9 g/dl (14.0-18.0); Immature Granulocytes # (auto) 0.06 K/uL (0.01-0.20); Immature Granulocytes % (auto) 0.8 %; Lymphocytes # (auto) 0.27 K/uL (1.20-3.40); Lymphocytes % (auto) 3.6 %; Mean Corpuscular Hemoglobin 33.8 pg (25.0-34.0); Mean Corpuscular Hgb Conc 35.3 g/dL (32.0-36.0); Mean Corpuscular Volume 95.8 fL (80.0-100.0); Mean Platelet Volume 10.1 fL (9.4-12.4); Monocytes # (auto) 1.14 K/uL (0.11-0.59); Monocytes % (auto) 15.4 %; Neutrophils # (auto) 5.75 K/uL (1.40-6.50); Neutrophils % (auto) 77.8 %; Platelet Count 56 K/uL (130-400); RDW Coefficient of Variation 24.2 % (11.5-14.5); RDW Standard Deviation 83.2 fL (36.4-46.3); Red Blood Count 2.63 M/uL (4.70-6.10)
[2025-03-04 07:30] LABS: Albumin Globulin Ratio 0.6 (0.9-2); Albumin Level 1.9 gm/dl (3.4-5.0); BUN Creatinine Ratio 27.3 (10-20); Bilirubin,Total 4.4 mg/dl (0.2-1.0); Calcium 7.6 mg/dl (8.6-10.3); Globulin 3.1 gm/dl (2.5-4.0); Magnesium 1.9 mg/dl (1.7-2.4); Phosphorus 3.4 mg/dl (2.5-4.9); Potassium 3.7 mmol/L (3.5-5.1)
[2025-03-04 07:39] LABS: Acanthocytes 1+; Anisocytosis Present
[2025-03-04 07:46] VITALS: BP 119/75; PULSE 78; RESP 18; O2SAT 98
--- NOTE | 2025-03-04 14:13 | Discharge Summary ---
Discharge Summary Date of Service March 04, 2025 Principal Dx & Hospital Course #1 = Principal Diagnosis (1) Generalized weakness: (2) Fracture of left proximal fibula: (3) Lumbar compression fracture: (4) BERT (acute kidney injury): (5) Recurrent falls while walking: (6) Hyponatremia: (7) Ascites: (8) Cirrhosis: (9) Thrombocytopenia: (10) Diabetes mellitus, type 2: Plan Mr. Spencer is a 59-year-old male with past medical history significant for type 2 diabetes, hyperlipidemia, chronic idiopathic gout, history of hepatic encephalopathy, primary hypertension, moderate aortic stenosis, liver cirrhosis secondary to WELLS s/p TIPS 01/27/2025, diverticulosis of colon, BPH, thrombocytopenia comes because of fall and weakness. Patient noted to have lumbar compression fracture, left proximal fibular fracture and acute on chronic hyponatremia. Hyponatremia more stable and pain controlled. Will need to await rad onc treatments prior to discharge to rehab. Completed onc treatments on 02/28/25 He was treated for the following: Acute on chronic hyponatremia Sodium levels dropped to 123 Multifactorial, likely also in setting of cirrhotic patient Nephrology consulted nephro recommendations: goal is to keep NA 125 or greater Nephrology recommendations for discharge per Dr Lesvia Marx: NEPHRO D/C RECS DX: Hypervolemic hyponatremia w/ liver carcinoma/liver cirrhosis s/p TIPS RX:-allopurinol 300 mg daily -cipro 500 mg daily per primary service -midodrine 15 mg tid per primary service -KCl 20 mEq bid -torsemide 10 mg bid17; hold for SBP <85 -spironolactone 25 mg daily; hold for SBP <85 OTHER POST D/C CARE: <2 gm daily sodium diet -1.5L FIRM daily fluid limit -work w/ facility it service manager to target 50 gm daily protein intake; challenging w/ po preferences -bmp, mag, CBC q2 wks x 3 -avoid nsaids F/U APPTS -hospital d/c appt w/ me in about 3-4 wks in [place] w/ neph nurse to order cmp, urine osms/serum osms, urine electrolytes, ACR, UACM to be done in week before OV Nephrology discontinued salt tabs Hypokalemia reduced KCL from 30meq BID to 20meq BID prn dosing to keep >4.0 follow bmp Acute compression fracture of L1 and L2 Mechanical Fall Generalized weakness Fell from bed while turning around without any loss of consciousness --Lumbar CT:Acute compression fractures of the L1 and L2 vertebral bodies without posterior retropulsion. Otherwise no change. OrthoSpine consulted, per Dr Devlin Conservative management:Continue brace with activity; No lifting over 5 to 10 pounds Needs follow-up with orthopedics in 2 weeks on discharge Plan to discharge to rehab facility when completed rad/onc tx PRN pain meds, decadron before rx Fracture of left proximal fibula--Subacute Suspected Maisonneuve injury Likely secondary to prior fall -Imaging:There is a subacute, unhealed, anatomically aligned fracture of the left fibular neck with developing callus. --Appreciate orthopedics input. Do not recommend any surgical intervention currently. No real restrictions for left lower extremity per Ortho Pain noted to be in calves, improved with myoflex and lidocaine patches Oral ulceration improving Looks like Aphthous, reports resolved Acute Kidney Injury*resolved Cr: 1.5>>0.97 Received gentle IV fluids Avoid nephrotoxic agents as able Renal function stable Questionable pneumonia on chest x-ray Acute to subacute left rib fractures--POA --Chest CT:Increased size of large left pleural effusion with complete collapse of the left lung. Nondisplaced acute to recent subacute lower left rib fractures. Otherwise as described. -- Continue incentive spirometry Wells liver cirrhosis s.p TIPS hepatocellular carcinoma/liver lesions Patient received embolization of the right lower lobe lesion in 07/2023 Repeat MRI in 01/2024 showed treatment cavity enhancement patient subsequently treated with TACE MRI on 11/14/2024 showed abnormalities in hepatic segment 7 and currently as per patient getting SBRT Radiation therapy per radiation oncology On lactulose and Xifaxan Continue midodrine 15 mg p.o. 3 times daily Patient is getting evaluated for liver transplant Monitor for volume overload, continue diuertics Rad Onc with planned treatments -completed treatments Chronic thrombocytopenia 2/2 cirrhosis No acute bleeding issues Monitor platelet count Hemoglobin, platelet count stable Moderate aortic stenosis Pulmonary hypertension Follow-up with cardiology DM II Continue home Lantus Sliding scale monitor BGs Anemia of chronic disease Hemoglobin 8.9 monitor History of left hepatic hydrothorax Recently needed chest tube placement stable at this time gout continue Allopurinol BPH On Flomax Monitor for urinary retention Hyperlipidemia On Lipitor Notes For Next Care Provider As above Medication Changes From Visit As above Admission HPI Per Admitting Provider 59-year-old male with past medical history significant for type 2 diabetes, hyperlipidemia, chronic idiopathic gout, history of hepatic encephalopathy, primary hypertension, moderate aortic stenosis, 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 Patient was admitted in first week of December with shortness of breath and acute blood loss anemia with hemoglobin 6.8 and received 1 unit of PRBC. During the admission he was status post EGD which showed portal hypertensive gastropathy and portal duodenopathy and did fine and was discharged home. Patient was again admitted on 01/13/2025 as patient was found to be lethargic when undergoing routine paracentesis and found to have large left pleural effusion and also recurrent blood loss anemia and hepatic encephalopathy and also found to left rib fracture from falls. Patient was status post chest tube placement on 01/13/2025 and status post paracentesis with 7 L of fluid removed and patient was transferred to [facility] for TIPS procedure on 01/14/2025. Patient was also treated for possible SBP for 5 days with Rocephin and was started on ciprofloxacin 5 mg daily for SBP prophylaxis. Patient is status post TIPS procedure on 01/27/2025. His midodrine was increased to15 mg 3 times daily. He was placed on torsemide 10 mg daily and spironolactone 50 mg daily. Patient was discharged on 01/29/2025 from [facility]. Patient lives at home with his mother and brother. Patient says he was doing okay after TIPS procedure. Currently not required paracentesis after TIPS procedure. Today he rolled and slipped from the bed and fell down around 2 PM. He was very weak on arms and legs and could not get up. He laid on the floor until his brother came at 6:30 PM. And he was able to get up but he was very weak to get into the couch and was brought in here. Denies any fevers. Denies chest pain. Denies shortness of breath. Appetite is okay. Denies headache. No cough. No runny nose. No nausea. No abdominal pain. States he is moving bowels only once daily currently. Micturating okay. Past medical history. As mentioned above Past surgical history. Colonoscopy. EGD. IR biopsy. IR cancer chemoembolization. Status post chest tube placement. Status post TIPS procedure Social history. Quit smoking 2004. Chews tobacco. No alcohol use. No drug use. Family history. Mother had colon cancer. Hypertension. Father had diabetes. Emphysema. Hypertension. Black lung. Corneal transplant. Brother has pacemaker. Diabetes. Heart attack. Hypertension. Hyperlipidemia. Liver disease. Sister has rheumatoid arthritis. Admission Exam Per Admitting Provider General- Not in distress Head- atraumatic Eyes- PERRL. ENT- oropharynx dry Neck- supple, no JVD. Lungs- clear to auscultation no wheezing or crackles Heart- regular rhythm; esm murmur, no gallop. Abdomen- normal bowel sounds, soft, nontender, no distension Extremities- no pretibial edema, bruise seen on knees more on right knee. Neuro- alert, oriented PERRL, no facial palsy; no dysarthria; moves extremities Discharge Exam General: Alert, oriented. No acute distress HEENT: NC/AT CV: RRR, + murmur Resp: Breath sounds clear bilaterally, no increased effort of breathing Abdomen: Soft, distended Extremities: No edema in lower extremities bilaterally. Updated Medication List Medication Instructions Recorded Confirmed Type allopurinol 300 mg tablet 300 mg PO DAILY 12/29/24 02/07/25 History ascorbic acid (vitamin C) 1,000 mg 1 g PO DAILY 12/29/24 02/07/25 History tablet atorvastatin 20 mg tablet 20 mg PO DAILY 12/29/24 02/07/25 History insulin degludec 100 unit/mL (3 10 unit subcut DAILY 12/29/24 02/07/25 History mL) subcutaneous pen lactulose 10 gram/15 mL oral 45 ml PO TID 12/29/24 02/07/25 History solution magnesium chloride 64 mg 64 mg PO DAILY 12/29/24 02/07/25 History (magnesium chloride) tablet,delayed release (Mag-Delay) multivitamin 1 tab PO DAILY 12/29/24 02/07/25 History rifaximin 550 mg tablet (Xifaxan) 550 mg PO BID 12/29/24 02/07/25 History tamsulosin 0.4 mg capsule 0.4 mg PO DAILY 12/29/24 02/07/25 History pantoprazole 40 mg tablet,delayed 40 mg PO BID #60 tabs 12/31/24 02/07/25 Rx release Lactobacillus acidophilus 10 10,000 mmu cells PO BID 01/08/25 02/07/25 History billion cell capsule (Probiotic) docusate sodium 100 mg capsule 100 mg PO BID 01/08/25 02/07/25 History mupirocin 2 % topical ointment 1 applic topical TID PRN Skin 01/08/25 02/07/25 History Irritation ciprofloxacin HCl 500 mg tablet 500 mg PO DAILY 02/07/25 02/07/25 History midodrine 5 mg tablet 15 mg PO TID 02/07/25 02/07/25 History vitamin E (dl, acetate) 180 mg 180 mg PO DAILY 02/07/25 02/07/25 History (400 unit) capsule potassium chloride 10 mEq 20 meq (2 x 10 mEq) PO BID #60 tabs 03/04/25 Rx tablet,extended release spironolactone 25 mg tablet 25 mg PO QAM #30 tabs 03/04/25 Rx torsemide 10 mg tablet 10 mg PO BID #60 tabs 03/04/25 Rx Hospital Stay Data Consultations 02/07/25 21:30 ED Decision to Admit Stat 02/08/25 08:00 Consult Orthopedic Surgery Routine 02/10/25 08:37 Consult Orthopedic Spine Surgery Routine 02/17/25 08:11 Consult Nephrology Routine Diagnostic Imagining Performed 02/07/25 19:22 CT lumbar spine wo con Stat CT pelvis wo con Stat 02/08/25 03:55 CT chest diagnostic wo con Routine 02/17/25 23:00 CT Abd and Pelvis [CT abd pelvis IV con only] Stat CT angio chest PE protocol Stat 02/20/25 CT guide rad therapy abdomen Routine 02/26/25 07:57 CT guide rad therapy abdomen Routine Chest X-Ray 02/07/25 18:25 Clinical History: Weakness Technique: A frontal view of the chest was obtained Comparison is made to the prior examination dated 01/14/2025 Findings: There is worsened diffuse interstitial prominence, concerning for mild pulmonary edema. There is more focal opacity in the left lung base could be due to either atelectasis or pneumonia. The heart size is within normal limits. No pleural effusion or pneumothorax is seen. There are suspected small calcified pulmonary granulomas No fracture is noted. No foreign body is seen Impression: 1. Mild pulmonary edema 2. Left lung base opacity that could be due to either atelectasis or pneumonia ACT 112: Positive. There are findings on this exam that require communication between the performing entity and the patient following Patient Test Result Information Act ([place] ACT 112) guidelines. Electronically signed by Adrian Hi 02-07-2025 7:10 PM Knee X-Ray 02/07/25 19:22 EXAM: Radiographs of the Left Knee 3 Views INDICATION: Posttraumatic pain TECHNIQUE: Three views of the left knee. COMPARISON: 01/08/2025 FINDINGS: Bones/joints: There is a subacute unhealed, anatomically aligned fracture of the left fibular neck with some developing callus. Osseous structures otherwise appear normal. No dislocation or subluxation. Smooth articular surfaces. No erosion or loose body. Soft tissues: No abnormality noted. No radiopaque foreign body noted. IMPRESSION: There is a subacute, unhealed, anatomically aligned fracture of the left fibular neck with developing callus. ACT 112: N/A Electronically signed by Abida Javier 02-07-2025 8:05 PM Knee X-Ray 02/07/25 19:22 EXAM: Radiographs of the Right Knee 3 Views INDICATION: Posttraumatic pain TECHNIQUE: Three views of the right knee. COMPARISON: No relevant prior studies available. FINDINGS: Bones/joints: No fracture, erosion or dislocation. Soft tissues: No abnormality noted. No radiopaque foreign body noted. IMPRESSION: No plain radiographic abnormality of the right knee. ACT 112: N/A Electronically signed by Abida Javier 02-07-2025 8:[address] 02/07/25 19:22 Exam(s): CT L SPINE EXAM: CT Lumbar Spine Without Intravenous Contrast CLINICAL HISTORY: pain fall. TECHNIQUE: Axial computed tomography images of the lumbar spine without intravenous contrast. CTDI is 39.4 mGy and DLP is 1207.88 mGy-cm. Automated exposure control was utilized for the study. A dose lowering technique was utilized adhering to the principles of ALARA. COMPARISON: 01/08/2025. FINDINGS: Vertebrae: Bones are osteopenic. Interval mild approximately 30% anterior superior wedge compression deformity of the L1 vertebral body without posterior retropulsion. Interval development of approximately 10% mild compression deformity of the L2 vertebral body without posterior retropulsion. No other fracture. Maintenance of height of the remainder of the lumbar vertebral bodies. No spondylolisthesis. Discs/spinal canal/neural foramina: Mild degenerative changes greatest at L3-4 through L5-S1, unchanged. Soft tissues: No paraspinal collection. Atherosclerotic vascular calcifications. IMPRESSION: Acute compression fractures of the L1 and L2 vertebral bodies without posterior retropulsion. Otherwise no change. Electronically signed by: Avni Hinds M.D. 02/07/25 23:[address] 02/07/25 19:22 Exam(s): CT PELVIS Without Contrast EXAM: CT Pelvis Without Intravenous Contrast CLINICAL HISTORY: pain fall. TECHNIQUE: Axial computed tomography images of the pelvis without intravenous contrast. CTDI is 34.22 mGy and DLP is 982.43 mGy-cm. Automated exposure control was utilized for the study. A dose lowering technique was utilized adhering to the principles of ALARA. COMPARISON: CT pelvis 12/05/2024 FINDINGS: Bowel: Abundant stool throughout the colon. No evidence for diverticulitis. Increased mild low density pelvic free fluid/ascites, slightly increased as compared prior study. Appendix: No findings to suggest acute appendicitis. Intraperitoneal space: Unremarkable. No free air. No significant fluid collection. Bladder: Partially contracted with nonspecific wall thickening. No stones. Reproductive: Unremarkable as visualized. Bones/joints: No acute fracture. No dislocation. Degenerative changes of the spine Soft tissues: Right posterior subcutaneous soft tissue overlying the upper right gluteal muscles. Redemonstrated fluid filled periumbilical hernia 3.6 x 6.7 cm, without involvement of bowel. Vasculature: Atherosclerotic vascular calcifications. No lower abdominal aortic aneurysm. Lymph nodes: Unremarkable. No enlarged lymph nodes. IMPRESSION: Subcutaneous bruising/infiltration overlying the upper right gluteal muscles. No acute fracture or dislocation. Mild increase ascites Electronically signed by: Avni Hinds M.D. 02/07/25 22:55 PM KUB X-Ray 02/17/25 15:34 EXAM: XR KUB/Abdomen 1 view CLINICAL HISTORY: Nausea. TECHNIQUE: X-ray images of the abdomen were obtained in supine and upright positions. COMPARISON: Compared to the previous CT abd pelvis study dated 12/05/2024 FINDINGS: Gas Pattern: Gaseous distension of large bowel loops and to a lesser extent the ileal loops. No evidence of significant air fluid levels, no evidence of bowel obstruction. Soft Tissues: Soft tissues of the abdomen appear normal without evidence of masses or calcifications. Liver, spleen, and kidneys are improperly visualized. Vascular sent is seen in the right upper quadrant of the abdomen, possibly TIPS shunt. IMPRESSION: 1. Gaseous distension of large bowel loops and to a lesser extent the ileal loops. Clinical correlation advised. (new) 2. No evidence of acute bowel obstruction. 3. Vascular sent is seen in the right upper quadrant of the abdomen, possibly TIPS shunt. (new) Electronically signed by Lake Garcia 02-17-2025 6:24 PM Abdomen/Pelvis CT 02/17/25 23:00 Exam(s): CT ABDOMEN + PELVIS With Contrast IV Amt: 118 ml optiray 320 EXAM: CT Angiography Chest and CT Abdomen and Pelvis With Intravenous Contrast CLINICAL HISTORY: Reason for exam: cp. TECHNIQUE: Axial computed tomographic angiography images of the chest and axial computed tomography images of the abdomen and pelvis with intravenous contrast. CTDI is 68.27 mGy and DLP is 2456.24 mGy-cm. Automated exposure control was utilized for the study. A dose lowering technique was utilized adhering to the principles of ALARA. MIP reconstructed images were created and reviewed. COMPARISON: CT chest dated 01/13/25, CT lumbar spine dated 02/07/2025, CT abdomen pelvis dated 12/05/2024 FINDINGS: CHEST: Aorta: No acute findings. No aortic aneurysm. No dissection. Pulmonary arteries: Unremarkable as visualized. No pulmonary embolism is identified. Great vessels of aortic arch: No acute findings. No dissection. No arterial occlusion or significant stenosis. Lungs: See below. Pleural space: Large left and small right pleural effusions. Associated atelectasis. No pneumothorax. Heart: Unremarkable. No cardiomegaly. No significant pericardial effusion. ABDOMEN: Liver: Nodular cirrhotic liver. Stable 3 cm heterogeneous lesion with coarse calcification in the right hepatic lobe. TIPS, new since 01/13/2025. Gallbladder and bile ducts: Cholelithiasis. No ductal dilation. Pancreas: Unremarkable. No ductal dilation. No mass. Spleen: Unremarkable. No splenomegaly. Adrenals: Unremarkable. No mass. Kidneys and ureters: Unremarkable. No hydronephrosis. No solid mass. Stomach and bowel: There is fluid in the colon suggesting diarrhea. No obstruction. No mucosal thickening. PELVIS: Appendix: Normal appendix. No findings to suggest acute appendicitis. Bladder: Unremarkable. No mass. Reproductive: Unremarkable as visualized. CHEST, ABDOMEN and PELVIS: Intraperitoneal space: Small to moderate ascites in the abdomen and pelvis. No free air. Bones/joints: Degenerative changes of the thoracic with flowing anterior osteophytes/diffuse idiopathic skeletal hyperostosis. Mild L1 and L2 compression deformities, similar to 02/07/2025 CT L spine. No dislocation. Soft tissues: Umbilical hernia containing lobular 7 cm fluid, similar appearance on the priors. Diffuse soft tissue edema suggesting anasarca. Lymph nodes: Unremarkable. No enlarged lymph nodes. IMPRESSION: 1. No acute abnormality of the arteries of the chest. 2. Large left and small right pleural effusions. Associated atelectasis. 3. Mild L1 and L2 compression deformities, similar to 02/07/2025 CT L spine. 4. Nodular cirrhotic liver and portal hypertension. TIPS, new since 01/13/2025. 5. Umbilical hernia containing lobular 7 cm fluid, similar appearance on the priors. 6. There is fluid in the colon suggesting diarrhea. 7. Diffuse soft tissue edema suggesting anasarca. Electronically signed by: Tong Yancey M.D. 02/18/25 04:07 AM Chest CTA 02/17/25 23:00 Exam(s): CTA CHEST IV Amt: 118 ml optiray 320 EXAM: CT Angiography Chest and CT Abdomen and Pelvis With Intravenous Contrast CLINICAL HISTORY: Reason for exam: cp. TECHNIQUE: Axial computed tomographic angiography images of the chest and axial computed tomography images of the abdomen and pelvis with intravenous contrast. CTDI is 68.27 mGy and DLP is 2456.24 mGy-cm. Automated exposure control was utilized for the study. A dose lowering technique was utilized adhering to the principles of ALARA. MIP reconstructed images were created and reviewed. COMPARISON: CT chest dated 01/13/25, CT lumbar spine dated 02/07/2025, CT abdomen pelvis dated 12/05/2024 FINDINGS: CHEST: Aorta: No acute findings. No aortic aneurysm. No dissection. Pulmonary arteries: Unremarkable as visualized. No pulmonary embolism is identified. Great vessels of aortic arch: No acute findings. No dissection. No arterial occlusion or significant stenosis. Lungs: See below. Pleural space: Large left and small right pleural effusions. Associated atelectasis. No pneumothorax. Heart: Unremarkable. No cardiomegaly. No significant pericardial effusion. ABDOMEN: Liver: Nodular cirrhotic liver. Stable 3 cm heterogeneous lesion with coarse calcification in the right hepatic lobe. TIPS, new since 01/13/2025. Gallbladder and bile ducts: Cholelithiasis. No ductal dilation. Pancreas: Unremarkable. No ductal dilation. No mass. Spleen: Unremarkable. No splenomegaly. Adrenals: Unremarkable. No mass. Kidneys and ureters: Unremarkable. No hydronephrosis. No solid mass. Stomach and bowel: There is fluid in the colon suggesting diarrhea. No obstruction. No mucosal thickening. PELVIS: Appendix: Normal appendix. No findings to suggest acute appendicitis. Bladder: Unremarkable. No mass. Reproductive: Unremarkable as visualized. CHEST, ABDOMEN and PELVIS: Intraperitoneal space: Small to moderate ascites in the abdomen and pelvis. No free air. Bones/joints: Degenerative changes of the thoracic with flowing anterior osteophytes/diffuse idiopathic skeletal hyperostosis. Mild L1 and L2 compression deformities, similar to 02/07/2025 CT L spine. No dislocation. Soft tissues: Umbilical hernia containing lobular 7 cm fluid, similar appearance on the priors. Diffuse soft tissue edema suggesting anasarca. Lymph nodes: Unremarkable. No enlarged lymph nodes. IMPRESSION: 1. No acute abnormality of the arteries of the chest. 2. Large left and small right pleural effusions. Associated atelectasis. 3. Mild L1 and L2 compression deformities, similar to 02/07/2025 CT L spine. 4. Nodular cirrhotic liver and portal hypertension. TIPS, new since 01/13/2025. 5. Umbilical hernia containing lobular 7 cm fluid, similar appearance on the priors. 6. There is fluid in the colon suggesting diarrhea. 7. Diffuse soft tissue edema suggesting anasarca. Electronically signed by: Tong Yancey M.D. 02/18/25 04:06 AM Pending Results Patient Have Any Pending Studies at Discharge: No Discharge Instructions Given to Patient (Per Discharging Provider) Follow-up with your primary care physician in 1 week upon discharge from rehab facility Follow-up with your orthopedic spine surgeon Dr. Devlin in 2 weeks with repeat imaging -- Continue back brace with activity as recommended by orthopedic surgery --No lifting weight over 5 to 10 pounds per Ortho You completed Radiation Oncology treatments. Your sdium levels were low but per Nephrology, there is little chance that it will ever be normal. They recommend continuing with a strict 1.5L daily fluid limit. Please continue with the medication changes noted below. Seek immediate medical attention if your symptoms reoccur or worsen. Please keep close followup with your primary care provider and specialists after discharge. Please review medication list provided on discharge for any medication changes as instructed. Please call if you have any questions or problems. You can reach a Alyssa hospitalist on duty at [facility] 24 hours a day by calling [phone] Total Time Total Time Spent Total Time Spent (In Minutes): 60
== END 2025-03-04 15:23 | DRG 552 ==
LOC: ED 18:07 → 2N 02-08 02:08 → SUATTDRO 02-08 02:08 → 2N 02-08 04:08 → 3W 02-25 02:37 → 3N 03-02 18:39